=== PATIENT | male | born 1935 | race Caucasian/White ===

== ENCOUNTER 2017-01-31 06:26 | Outpatient (CLI) | payer MEDICARE, OTHER ==
[~2017-01-31 06:26] MED LIST: ACET1TAB12; ALPR0.5T72 PO; ASP325T PO; ATEN-156 PO; BRIM15DR2 OU; CALC-657; FENO145T2 PO; GLIP10TA13 PO; HYDR-3714 PO; INSU100V6 SQ; INSU300I SQ; LISI10TA2 PO; MECL-106 PO; MTF500T PO; MULT1TAB34; OMEP-10 PO; ONDA-42 SL; PROM12.565 RC; RAMI1.252; SCOP1PAT TD; SIMV40TA4 PO; SIMV5TAB6; TAMS0.4C9 PO; TRAM-42 PO; TRAM50TA2 PO
== END 2017-01-31 14:50 ==
DX: Z01.818 Encounter for other preprocedural examination (principal); K59.00 Constipation, unspecified; R13.10 Dysphagia, unspecified; K21.9 Gastro-esophageal reflux disease without esophagitis

== ENCOUNTER 2017-02-04 08:22 | Day surgery (SDC) | payer MEDICARE, OTHER ==
[~2017-02-04] VITALS: Ht 180.3 cm; Wt 69.4 kg
[2017-02-04] MEDS ORDERED: HURRICAINE EXT TUBE (BENZOCAINE) XX PRN (08:30)
[2017-02-04] MEDS ORDERED: NALOXONE 0.4 MG/ML 1 ML (NARCAN) VIAL IVP PRN (08:30)
[2017-02-04] MEDS ORDERED: NS IV 500 ML 500 ML IV PRN (08:30)
[2017-02-04] MEDS ORDERED: FLUMAZENIL (ROMAZICON) 0.1 MG/ML 5 ML VIAL INJ PRN (08:30)
[2017-02-04 08:56] VITALS: BP 146/62
[2017-02-04] MEDS ORDERED: MULT-10 PO (09:03)
[2017-02-04] MEDS ORDERED: NITR0.4T39 SL (09:03)
[2017-02-04] MEDS ORDERED: CA C1TAB79 PO (09:03)
[2017-02-04] MEDS ORDERED: FISH1CAP15 PO (09:03)
[2017-02-04] MEDS ORDERED: MIDAZOLAM 2 MG/2 ML (VERSED) VIAL ONE ×5 (09:51→09:52)
[2017-02-04] MEDS ORDERED: fentaNYL INJECTION 100 MCG/2 ML AMP ONE ×2 (09:51)
[2017-02-04] MEDS ORDERED: HURRICAINE EXT TUBE (BENZOCAINE) ONE (09:52)
[2017-02-04] MEDS: fentaNYL INJECTION 100 MCG/2 ML AMP IVP PRN ×2 (10:08→10:22)
[2017-02-04] MEDS: MIDAZOLAM 2 MG/2 ML (VERSED) VIAL IVP PRN ×2 (10:09→10:23)
--- NOTE | 2017-02-04 10:42 | Conscious Sedation/ASA ---
Conscious Sedation Pre-Proced Time Reviewed: 09:45 ASA Class: 2 Airway Mallampati Classification: (makah appropriate class) I. II. III, IV Lungs Heart ASA score ASA 1: a normal healthy patient ASA 2: a patient with a mild systemic disease (mid diabetes, controlled hypertension, obesity ASA 3: a patient with a severe systemic disease that limits activity (angina , COPD, prior Myocardial infarction) ASA 4: a patient with an incapacitating disease that is a constant threat to life (CHF, renal failure) ASA 5: a moribund patient not expected to survive 24 hrs. (ruptured aneurysm) ASA 6: a declared brain patient whose organs are being harvested. For emergent operations, add the letter E after the classification Grade 1 Sedation Plan: Discussed options with patient/fam Note The patient is an appropriate candidate to undergo the planned procedure, sedation, and anesthesia. The patient immediately re-assessed prior to indication. GIRISH DONOHUE MD Feb 04, 2017 10:42 am
--- NOTE | 2017-02-04 10:43 | Endoscopy Procedure Report ---
Endoscopy Report Date: Feb 04, 2017 Preoperative Diagnosis: GERD. Dysphagia Study Performed: Upper Endoscopy Procedure Instrument: Endoscope Endo Procedure/Findings Findings 1.: Stricture GIRISH DONOHUE MD Feb 04, 2017 10:43 am
--- NOTE | 2017-02-04 10:44 | Endoscopy Procedure Report ---
Endoscopy Report Date: Feb 04, 2017 Preoperative Diagnosis: constipation Study Performed: Colonoscopy Procedure Instrument: Colonoscope Endo Procedure/Findings Findings 1.: Diverticulosis, Stricture Copy Copies To 1: LAUREL SERRANO MD, XAVIER M MD Feb 04, 2017 10:43 am
--- NOTE | 2017-02-04 10:45 | Discharge Inst-Simple/Standard ---
Discharge Inst-Standard Discharge Medications New, Converted or Re-Newed RX: Other Patient Instructions/Follow Up Plan of Care/Instructions/FU: increase omeprazole to twice a day. Follow-up with Dr. Ash Activity as Tolerated: Yes Discharge Diet: No Restrictions GIRISH DONOHUE MD Feb 04, 2017 10:45 am
[2017-02-04 11:00] VITALS: BP 129/64
[2017-02-04 11:36] VITALS: BP 141/77
[2017-02-04 11:42] VITALS: BP 141/77
--- OUTSIDE RECORDS SUMMARY | 2017-02-04 22:52 | XMS REPORT | Continuity of Care Document ---
Author Author [facility] Organization [facility] Address Unknown Phone Unavailable Allergies Active Description Code Type Severity Reaction Onset Reported/Identified Relationship to Patient Clinical Status Yes cefuroxime [id number] Drug Allergy Unknown N/A 01/31/2017 Medications Problems Date Dx Coded Attending Type Code Diagnosis Diagnosed By 06/24/2014 BAIABBEY, ERWIN L CHILD SPECIALIST Ot 272.4 06/24/2014 BAIMA, ERWIN L CHILD SPECIALIST Ot 414.00 06/24/2014 BAIMA, ERWIN L CHILD SPECIALIST Ot 433.10 08/11/2014 BAIMA, ERWIN L CHILD SPECIALIST Ot 272.4 08/11/2014 BAIMA, ERWIN L CHILD SPECIALIST Ot 305.1 08/11/2014 BAIMA, ERWIN L CHILD SPECIALIST Ot 401.9 08/11/2014 BAIMA, ERWIN L CHILD SPECIALIST Ot 414.00 08/11/2014 BAIMA, ERWIN L CHILD SPECIALIST Ot 496 12/28/2014 KARLA SU CHILD SPECIALIST Ot 250.00 12/28/2014 KARLA SU CHILD SPECIALIST Ot 401.9 12/28/2014 KARLA SU CHILD SPECIALIST Ot 780.4 12/31/2014 BAIMA, ERWIN L CHILD SPECIALIST Ot 272.4 12/31/2014 BAIMA, ERWIN L CHILD SPECIALIST Ot 414.00 01/04/2015 BAIMA, ERWIN L CHILD SPECIALIST Ot 272.4 01/04/2015 BAIMA, ERWIN L CHILD SPECIALIST Ot 414.00 01/21/2015 KARLA SU CHILD SPECIALIST Ot 250.00 01/21/2015 KARLA SU CHILD SPECIALIST Ot 401.9 01/21/2015 KARLA SU CHILD SPECIALIST Ot 780.4 02/02/2015 BERNARDO ERWIN L CHILD SPECIALIST Ot 272.4 02/02/2015 BAIABBEY, ERWIN L CHILD SPECIALIST Ot 414.00 02/28/2015 KARMEN ADLER DO Ot 250.00 DIAB MEGGAN WO COMPL, TYPE II OR UNSPEC TY 02/28/2015 VITORKARMEN Adams DO Ot 272.0 PURE HYPERCHOLESTEROLEM 02/28/2015 KARMEN ADLER DO Ot 401.9 HYPERTENSION NOS 02/28/2015 KARMEN ADLER DO Ot 412 OLD MYOCARDIAL INFARCT 02/28/2015 KARMEN ADLER DO Ot 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 02/28/2015 KARMEN ADLER DO Ot 530.81 ESOPHAGEAL REFLUX 02/28/2015 KARMEN ADLER DO Ot 780.4 DIZZINESS AND GIDDINESS 02/28/2015 KARMEN ADLER DO Ot V45.82 PERCUTANEOUS TRANSLUM CORON ANGIOPLASTY 02/28/2015 KARMEN ADLER DO Ot V58.67 LONG-TERM (CURRENT) USE OF INSULIN 03/17/2015 JF CANCINO PICTURES EDITOR Ot 298.9 03/17/2015 JF CANCINO APRN Ot 780.4 03/17/2015 JF CANCINO PICTURES EDITOR Ot 780.79 03/17/2015 JF CANCINO PICTURES EDITOR Ot 781.2 03/23/2015 JAYDE LATHAM, GIRISH Boyer Ot 709.9 03/23/2015 JAYDE LATHAM, GIRISH Boyer Ot V72.84 03/23/2015 JAYDE LATHAM, GIRISH Boyer Ot 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 03/23/2015 JAYDE LATHAM, GIRISH Boyer Ot 250.00 DIAB MEGGAN WO COMPL, TYPE II OR UNSPEC TY 03/23/2015 JAYDE LATHAM, GIRISH Boyer Ot 709.9 SKIN DISORDER NOS 03/23/2015 JAYDE LATHAM, GIRISH Boyer Ot V74.8 SCREEN-BACTERIAL DIS NEC 05/30/2015 KARLA SU CHILD SPECIALIST Ot 786.2 06/16/2015 OSCAR LATHAM FACBasilio, MARLENY FACP CCDS Ot E78.4 06/16/2015 OSCAR LATHAM FACC, MARLENY FACP CCDS Ot I10 06/16/2015 OSCAR LATHAM FACC, ALI FACP CCDS Ot I25.10 06/16/2015 OSCAR LATHAM FACC, ALI FACP CCDS Ot J43.8 06/16/2015 OSCAR CONTRERASC, ALI FACP CCDS Ot Z72.0 06/30/2015 OSCAR LATHAM FACC, ALI FACP CCDS Ot E78.4 06/30/2015 OSCAR LATHAM [facility], MARLENY FACP CCDS Ot I10 06/30/2015 OSCAR LATHAM [facility], ALI FACP CCDS Ot I25.10 06/30/2015 OSCAR LATHAM [facility] CCD[facility] Ot J43.8 06/30/2015 OSCAR LATHAM [facility], [facility] Ot Z72.0 11/21/2015 GIRISH DONOHUE MD Ot L98.9 DISORDER OF THE SKIN AND SUBCUTANEOUS TI 11/21/2015 GIRISH DONOHUE MD Ot Z01.818 ENCOUNTER FOR OTHER PREPROCEDURAL EXAMIN 11/21/2015 GIRISH DONOHUE MD Ot Z11.2 ENCOUNTER FOR SCREENING FOR OTHER BACTER 12/08/2015 KARLA SU CHILD SPECIALIST Ot E11.65 TYPE 2 DIABETES MELLITUS WITH HYPERGLYCE 12/08/2015 KARLA SU CHILD SPECIALIST Ot E55.9 VITAMIN D DEFICIENCY, UNSPECIFIED 12/08/2015 KARLA SU CHILD SPECIALIST Ot E78.2 MIXED HYPERLIPIDEMIA 12/08/2015 KARLA SU CHILD SPECIALIST Ot I10 ESSENTIAL (PRIMARY) HYPERTENSION 12/08/2015 KARLA SU CHILD SPECIALIST Ot J44.9 CHRONIC OBSTRUCTIVE PULMONARY DISEASE , U 12/13/2015 KARLA SU CHILD SPECIALIST Ot E11.65 TYPE 2 DIABETES MELLITUS WITH HYPERGLYCE 12/13/2015 KARLA SU CHILD SPECIALIST Ot E55.9 VITAMIN D DEFICIENCY, UNSPECIFIED 12/13/2015 KARLA SU CHILD SPECIALIST Ot E78.2 MIXED HYPERLIPIDEMIA 12/13/2015 KARLA SU CHILD SPECIALIST Ot I10 ESSENTIAL (PRIMARY) HYPERTENSION 12/13/2015 KARLA SU CHILD SPECIALIST Ot J44.9 CHRONIC OBSTRUCTIVE PULMONARY DISEASE , U 12/15/2015 JAYDE LATHAM, GIRISH Boyer Ot 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 12/15/2015 GIRISH DONOHUE MD Ot I10 ESSENTIAL (PRIMARY) HYPERTENSION 12/15/2015 GIRISH DONOHUE MD Ot 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 12/15/2015 GIRISH DONOHUE MD Ot J44.9 CHRONIC OBSTRUCTIVE PULMONARY DISEASE, U 12/15/2015 GIRISH DONOHUE MD Ot 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 12/15/2015 TYREL DONOHUE MDVIER M Ot L82.1 OTHER SEBORRHEIC KERATOSIS 12/28/2015 KARLA SU CHILD SPECIALIST Ot E11.65 TYPE 2 DIABETES MELLITUS WITH HYPERGLYCE 12/28/2015 KARLA SU CHILD SPECIALIST Ot E55.9 VITAMIN D DEFICIENCY, UNSPECIFIED 12/28/2015 KARLA SU CHILD SPECIALIST Ot E78.2 MIXED HYPERLIPIDEMIA 12/28/2015 KARLA SU CHILD SPECIALIST Ot I10 ESSENTIAL (PRIMARY) HYPERTENSION 12/28/2015 KARLA SU CHILD SPECIALIST Ot J44.9 CHRONIC OBSTRUCTIVE PULMONARY DISEASE , U 01/02/2016 JAYDE LATHAM, GIRISH Boyer Ot 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 01/02/2016 JAYDE LATHAM, GIRISH Boyer Ot I10 ESSENTIAL (PRIMARY) HYPERTENSION 01/02/2016 JAYDE LATHAM, GIRISH Boyer Ot 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 01/02/2016 JAYDE LATHAM, GIRISH Boyer Ot J44.9 CHRONIC OBSTRUCTIVE PULMONARY DISEASE, U 01/02/2016 JAYDE LATHAM, GIRISH Boyer Ot 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69 OTH MED,LT,CURRENT USE 04/24/2016 Ot 272.4 HYPERLIPIDEMIA NEC/NOS 04/24/2016 Ot 401.9 HYPERTENSION NOS 04/24/2016 Ot 414.00 CORON ATHEROSCLER NOS TYPE VESSEL, NATIV 04/24/2016 Ot V58.69 OTH MED,LT,CURRENT USE 04/24/2016 Ot 414.00 CORON ATHEROSCLER NOS TYPE VESSEL, NATIV 04/24/2016 Ot 414.8 CHR ISCHEMIC HRT DIS NEC 04/24/2016 Ot 786.07 WHEEZING 04/24/2016 Ot 786.2 COUGH 04/24/2016 Ot 272.4 HYPERLIPIDEMIA NEC/NOS 04/24/2016 Ot 401.9 HYPERTENSION NOS 04/24/2016 Ot 414.00 CORON ATHEROSCLER NOS TYPE VESSEL, NATIV 04/24/2016 Ot V58.69 OTH MED,LT,CURRENT USE 04/24/2016 Ot 401.9 HYPERTENSION NOS 04/24/2016 Ot 414.00 CORON ATHEROSCLER NOS TYPE VESSEL, NATIV 04/24/2016 Ot V58.69 OTH MED,LT,CURRENT USE 04/24/2016 ALIA LATHAM, TORIE Boyer Ot 724.2 LUMBAGO 04/24/2016 BAIMA, ERWIN L CHILD SPECIALIST Ot 272.4 HYPERLIPIDEMIA NEC/NOS 04/24/2016 BAIMA, ERWIN L CHILD SPECIALIST Ot 401.9 HYPERTENSION NOS 04/24/2016 BAIMA, ERWIN L CHILD SPECIALIST Ot 414.00 CORON ATHEROSCLER NOS TYPE VESSEL, NATIV 04/24/2016 BAIMA, ERWIN L CHILD SPECIALIST Ot 272.4 HYPERLIPIDEMIA NEC/NOS 04/24/2016 BAIMA, ERWIN L CHILD SPECIALIST Ot 401.9 HYPERTENSION NOS 04/24/2016 BAIMA, ERWIN L CHILD SPECIALIST Ot 414.00 CORON ATHEROSCLER NOS TYPE VESSEL, NATIV 04/24/2016 BAIMA, ERWIN L CHILD SPECIALIST Ot 414.8 CHR ISCHEMIC HRT DIS NEC 04/24/2016 TORIE ROJO MD Ot 786.2 COUGH 04/24/2016 TORIE ROJO MD Ot 786.7 ABNORMAL CHEST SOUNDS 04/24/2016 BAIMA, ERWIN L CHILD SPECIALIST Ot 272.4 HYPERLIPIDEMIA NEC/NOS 04/24/2016 BAIMA, ERWIN L CHILD SPECIALIST Ot 414.00 CORON ATHEROSCLER NOS TYPE VESSEL, NATIV 04/24/2016 BAIMA, ERWIN L CHILD SPECIALIST Ot 433.10 CAROTID ARTERY OCCLUSION W O CEREBRAL IN 04/24/2016 BAIMA, ERWIN L CHILD SPECIALIST Ot 272.4 HYPERLIPIDEMIA NEC/NOS 04/24/2016 BAIMA, ERWIN L CHILD SPECIALIST Ot 305.1 TOBACCO USE DISORDER 04/24/2016 BAIMA, ERWIN L CHILD SPECIALIST Ot 401.9 HYPERTENSION NOS 04/24/2016 ERWIN CHANG CHILD SPECIALIST Ot 414.00 CORON ATHEROSCLER NOS TYPE VESSEL, NATIV 04/24/2016 OSKARERWIN POTTER Nas CHILD SPECIALIST Ot 496 CHR AIRWAY OBSTRUCT NEC 04/24/2016 KARLA SU CHILD SPECIALIST Ot 250.00 DIAB MEGGAN WO COMPL, TYPE II OR UNSPEC TY 04/24/2016 KARLA SU CHILD SPECIALIST Ot 401.9 HYPERTENSION NOS 04/24/2016 KARLA SU CHILD SPECIALIST Ot 780.4 DIZZINESS AND GIDDINESS 04/24/2016 BERNARDOERWIN Nas CHILD SPECIALIST Ot 272.4 HYPERLIPIDEMIA NEC/NOS 04/24/2016 OSKARERWIN POTTER CHILD SPECIALIST Ot 414.00 CORON ATHEROSCLER NOS TYPE VESSEL, NATIV 04/24/2016 JF CANCINO PICTURES EDITOR Ot 298.9 PSYCHOSIS NOS 04/24/2016 JF CANCINO PICTURES EDITOR Ot 780.4 DIZZINESS AND GIDDINESS 04/24/2016 JF CANCINO PICTURES EDITOR Ot 780.79 OTH MALAISE FATIGUE 04/24/2016 JF CANCINO PICTURES EDITOR Ot 781.2 ABNORMALITY OF GAIT 04/24/2016 GIRISH DONOHUE MD Ot 709.9 SKIN DISORDER NOS 04/24/2016 GIRISH DONOHUE MD Ot V72.84 EXAM PRE-OPERATIVE NOS 04/24/2016 KARLA SU CHILD SPECIALIST Ot 786.2 COUGH 04/24/2016 OSCAR LATHAM FACC, MARLENY CONTRERASP CCDS Ot E78.4 OTHER HYPERLIPIDEMIA 04/24/2016 OSCAR LATHAM FACC, MARLENY CONTRERASP CCDS Ot I10 ESSENTIAL (PRIMARY) HYPERTENSION 04/24/2016 OSCAR LATHAM FACC, MARLENY CONTRERASP CCDS Ot 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 04/24/2016 OSCAR LATHAM FACC, ALI FACP CCDS Ot J43.8 OTHER EMPHYSEMA 04/24/2016 OSCAR LATHAM FACC, ALI FACP CCDS Ot Z72.0 TOBACCO USE 04/24/2016 GIRISH DONOHUE MD Ot 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 04/24/2016 GIRISH DONOHUE MD Ot I10 ESSENTIAL (PRIMARY) HYPERTENSION 04/24/2016 GIRISH DONOHUE MD Ot 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 04/24/2016 JAYDE LATHAM, GIRISH Boyer Ot J44.9 CHRONIC OBSTRUCTIVE PULMONARY DISEASE, U 04/24/2016 JAYDE LATHAM, GIRISH Boyer Ot 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 04/24/2016 JAYDE LATHAM, GIRISH Boyer Ot L82.1 OTHER SEBORRHEIC KERATOSIS 04/24/2016 SHARLENE KARLA M CHILD SPECIALIST Ot E11.65 TYPE 2 DIABETES MELLITUS WITH HYPERGLYCE 04/24/2016 KARLA SU CHILD SPECIALIST Ot E55.9 VITAMIN D DEFICIENCY, UNSPECIFIED 04/24/2016 KARLA SU CHILD SPECIALIST Ot E78.2 MIXED HYPERLIPIDEMIA 04/24/2016 KARLA SU CHILD SPECIALIST Ot I10 ESSENTIAL (PRIMARY) HYPERTENSION 04/24/2016 KARLA SU CHILD SPECIALIST Ot J44.9 CHRONIC OBSTRUCTIVE PULMONARY DISEASE , U 04/24/2016 BAIMA, ERWIN L CHILD SPECIALIST Ot E78.4 OTHER HYPERLIPIDEMIA 04/24/2016 BAIMA, ERWIN L CHILD SPECIALIST Ot I10 ESSENTIAL (PRIMARY) HYPERTENSION 04/24/2016 BAIMA, ERWIN L CHILD SPECIALIST Ot 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 04/24/2016 BAIMA, ERWIN L CHILD SPECIALIST Ot 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 04/25/2016 BAIMA, ERWIN L CHILD SPECIALIST Ot E78.4 OTHER HYPERLIPIDEMIA 04/25/2016 BAIMA, ERWIN L CHILD SPECIALIST Ot I10 ESSENTIAL (PRIMARY) HYPERTENSION 04/25/2016 BAIMA, ERWIN L CHILD SPECIALIST Ot 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 04/25/2016 BAIMA, ERWIN L CHILD SPECIALIST Ot 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 05/14/2016 BAIMA, ERWIN L CHILD SPECIALIST Ot E78.4 OTHER HYPERLIPIDEMIA 05/14/2016 BAIMA, ERWIN L CHILD SPECIALIST Ot I10 ESSENTIAL (PRIMARY) HYPERTENSION 05/14/2016 BAIMA, ERWIN L CHILD SPECIALIST Ot 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 Visit Date/Time Discharge Status Pt. Type Provider Facility Loc./Unit Complaint [id number] 01/31/2017 06:26:00 2016 14:50:00 DIS Outpatient GIRISH ODNOHUE MD [facility] PREOP COLO/EGD [id number] 11/21/2015 13:17:00 2015 14:09:00 DIS Outpatient GIRISH DONOHUE MD [facility] PREOP LESIONS [id number] 06/10/2015 10:22:00 2014 23:59:59 CLS Outpatient OSCAR LATHAM FACCMARLENY FACP CCDS [facility] CARD COPD,CAD [id number] 05/06/2015 14:12:00 2014 23:59:59 CLS Outpatient KARLA SU [facility] RAD COUGH [id number] 03/23/2015 07:31:00 2014 12:15:00 DIS Outpatient GIRISH DONOHUE MD [facility] SDC LESION [id number] 03/16/2015 11:34:00 2014 23:59:59 CLS Outpatient GIRISH DONOHUE MD [facility] PREOP LESION [id number] 02/28/2015 18:55:00 2014 21:13:00 DIS Emergency VITOR DOKARMEN K [facility] ER DIZZINESS,VOMITING [id number] 02/23/2015 13:01:00 2014 23:59:59 CLS Outpatient JF CANCINO APRN [facility] RAD UNSTEADY GAIT,DIZZINESS, INTERMEDIATE CONFUSION, [id number] 12/30/2014 09:50:00 2014 23:59:59 CLS Outpatient ERWIN CHANG [facility] LAB CAD, HYPERLIPIDEMIA [id number] 12/23/2014 16:09:00 2014 23:59:59 CLS Outpatient KARLA SU CHILD SPECIALIST [facility] RT DIZZINESS,DM,HTN [id number] 07/19/2014 14:32:00 2013 23:59:59 CLS Outpatient BAIMA, ERWIN L CHILD SPECIALIST [facility] RAD CAD,COPD,HTN,HYPERLIPADEMIA [id number] 06/01/2014 10:19:00 2013 23:59:59 CLS Outpatient BAIMA, ERWIN L CHILD SPECIALIST [facility] LAB CAD, HYPERLIPADEMIA [id number] 04/21/2014 15:28:00 2013 23:59:59 CLS Outpatient TORIE ROJO MD [facility] RAD COUGH,BI CRACKLES [id number] 01/28/2014 07:53:00 2013 23:59:59 CLS Outpatient BAIMA, ERWIN L CHILD SPECIALIST [facility] CARD HTN,CARDIOMYOPATHY,HLP [id number] 11/23/2013 08:58:00 2013 23:59:59 CLS Outpatient BAIMA, ERWIN L CHILD SPECIALIST [facility] LAB STATIN TC,HTN,HYPLIPADEMIA [id number] 05/11/2013 16:12:00 2012 23:59:59 CLS Outpatient TORIE ROJO MD [facility] RAD LOW BACK PAIN [id number] 02/04/2017 09:30:00 GIRISH Gould MD [facility] ENDO CONSTIPATION, DYSPHAGIA, REFLUX [id number] 04/24/2016 11:08:00 ACT Outpatient BAIMA, ERWIN L CHILD SPECIALIST [facility] CARD CAD,CAROITD ARTERIAL DISEASE,HTN,HLP [id number] 04/24/2016 11:07:00 Document Registration [id number] 04/24/2016 11:06:00 Document Registration [id number] 04/24/2016 11:06:00 Document Registration [id number] 04/20/2016 11:43:00 ACT Outpatient ERWIN CHANG [facility] CARD CAD,CAROTID ARTERIAL DISEASE,HTN,HLP [id number] 12/07/2015 12:29:00 ACT Outpatient JAYDE LATHAM, GIRISH Boyer [facility] SDC LESIONS [id number] 12/07/2015 12:01:00 ACT Outpatient KARLA SU [facility] LAB HTN,TYPE 2 DIABETES,VIT D DEF,CHRONIC OBSTRUCTIVE [id number] 06/23/2012 13:16:00 Document Registration [id number] 05/26/2012 09:47:00 Document Registration [id number] 04/01/2012 16:36:00 Document Registration [id number] 12/24/2011 14:06:00 Document Registration [id number] 11/19/2011 09:23:00 Document Registration [id number] 05/31/2011 07:52:00 Document Registration [id number] 05/18/2011 09:02:00 Document Registration [id number] 11/10/2010 09:23:00 Document Registration [id number] 06/27/2007 00:00:00 Document Registration
--- NOTE | 2017-02-04 23:47 | OPERATIVE REPORT ---
DATE OF SERVICE: 02/04/2017 PROCEDURE: 1. Upper GI endoscopy/antral biopsy. 2. Balloon dilatation. 3. Colonoscopy. SURGEON: Girish Donohue MD INDICATION FOR PROCEDURE: This gentleman came in for an upper endoscopy to evaluate dysphagia along with symptoms of reflux and concomitant colonoscopy to investigate new onset of constipation. Informed consent was obtained after reviewing the procedures in detail. DESCRIPTION OF PROCEDURE: 1. Upper GI endoscopy/antral biopsy/balloon dilatation. He was placed in left lateral decubitus position and his vital signs were monitored. Conscious sedation was achieved using Versed and fentanyl. The flexible gastroscope was introduced down the esophagus, past the stomach, into the proximal duodenum. FINDINGS: ESOPHAGUS: Quite tortuous with a smooth, concentric, peptic stricture at the distal end. It was dilated to 18 mm with the balloon. STOMACH: An incidental 1 mm erosion was found at the antral. Biopsy for H. pylori was obtained. Duodenum normal. He tolerated the procedure well and was turned around in preparation for colonoscopy. IMPRESSION: Dysphagia due to peptic esophageal stricture. Balloon dilatation completed. COLONOSCOPY: Digital rectal examination was unremarkable. The colonoscope was then introduced into the rectum and advanced to the cecum. The scope was then withdrawn slowly and the mucosa examined in a systematic fashion. FINDINGS: Sigmoid diverticulosis without any stricture. No polyps were found. He tolerated the procedures well and was taken back to the nursing area in a stable condition. IMPRESSION: Constipation. No obstructing lesions. Incidental diverticulosis. Job ID: [id number] DocumentID: [id number] Dictated Date: 02/04/2017 10:41:51 Sports Recruiter Date: 02/04/2017 15:55:59 Dictated By: GIRISH DONOHUE MD MTDD
== END 2017-02-04 12:10 | disposition home or self-care (01) ==
LOC: ENDO 08:22
PROVIDERS: ATTEND Surgery
DX: K22.2 Esophageal obstruction (principal); K57.30 Diverticulosis of large intestine without perforation or abscess without bleeding; K25.9 Gastric ulcer, unspecified as acute or chronic, without hemorrhage or perforation; I25.10 Atherosclerotic heart disease of native coronary artery without angina pectoris; J44.9 Chronic obstructive pulmonary disease, unspecified; E11.9 Type 2 diabetes mellitus without complications; M19.90 Unspecified osteoarthritis, unspecified site; H40.9 Unspecified glaucoma; F17.210 Nicotine dependence, cigarettes, uncomplicated

== ENCOUNTER → 2017-05-10 | Outpatient (CLI) | payer MEDICARE, OTHER ==
[~2017-05-10] MED LIST changes: +CA C1TAB79 PO; +FISH1CAP15 PO; +MULT-10 PO; +NITR0.4T39 SL
--- NOTE | 2017-05-10 13:49 | Diagnostic Imaging Report ---
PROCEDURE: CT chest without contrast. TECHNIQUE: Multiple contiguous axial images were obtained through the chest without the use of intravenous contrast. INDICATION: Weight loss. Tobacco use. Shortness of breath. FINDINGS: There is obstructive interstitial lung disease noted throughout. There is alveolar infiltrate in the left lung base. No bronchiectasis is demonstrated. No bullous emphysematous changes. There is some scattered subpleural honeycombing noted most prominently in the upper lobes bilaterally. The aorta is atherosclerotic. The aortic root measures approximately 3.6 cm. Coronary arteries are densely calcified. There is no mediastinal or hilar adenopathy of pathologic size. No destructive bony lesions are demonstrated. Diffuse degenerative changes noted throughout the thoracic spine. No pleural effusions or pericardial effusion. IMPRESSION: 1. Obstructive interstitial lung disease. There is subpleural honeycombing in the upper lobes. 2. There does appear to be superimposed pneumonia in the left lower lobe. No findings are seen to indicate malignancy at this time. 3. Atherosclerotic changes with dense coronary artery calcification. Dictated by: Dictated on workstation # [id number]
== END ==
LOC: RAD 12:49
PROVIDERS: ATTEND Nurse Practitioner Family
DX: J44.9 Chronic obstructive pulmonary disease, unspecified (principal); I25.10 Atherosclerotic heart disease of native coronary artery without angina pectoris; R91.8 Other nonspecific abnormal finding of lung field; R63.4 Abnormal weight loss; Z72.0 Tobacco use
CPT/HCPCS: 71250

== ENCOUNTER 2017-12-05 06:07 | Outpatient (CLI) | payer MEDICARE, OTHER ==
[~2017-12-05] VITALS: Ht 180.3 cm; Wt 69.4 kg
[2017-12-05] MEDS ORDERED: ASPI-808 PO (12:45)
[2017-12-05] MEDS ORDERED: ALPR0.5T7 PO (12:45)
[2017-12-05] MEDS ORDERED: ATEN25TA PO (12:45)
[2017-12-05] MEDS ORDERED: ACHD5005 PO (12:45)
[2017-12-05] MEDS ORDERED: METF500T5 PO (12:45)
[2017-12-05] MEDS ORDERED: LISI10TA2 PO (12:45)
[2017-12-05] MEDS ORDERED: SIMV40TA4 PO (12:46)
[2017-12-05] MEDS ORDERED: BRIM5DRO2 OU (12:46)
[2017-12-05] MEDS ORDERED: PANT40TA3 PO (12:46)
[2017-12-10] MEDS ORDERED: SUCR1TAB36 PO (11:53)
== END 2017-12-05 12:47 ==
LOC: PREOP 06:07
PROVIDERS: ATTEND Surgery
DX: Z01.818 Encounter for other preprocedural examination (principal); R06.6 Hiccough; R14.2 Eructation

== ENCOUNTER → 2018-01-05 | Outpatient (CLI) | payer MEDICARE, OTHER ==
[~2018-01-05] MED LIST changes: +ACHD5005 PO; +ALPR0.5T7 PO; +ASPI-808 PO; +ATEN25TA PO; +BRIM5DRO2 OU; +METF500T5 PO; +PANT40TA3 PO; +SUCR1TAB36 PO
--- NOTE | 2018-01-05 17:10 | Diagnostic Imaging Report ---
INDICATION: Acute bronchitis. EXAMINATION: PA and lateral views of the chest. FINDINGS: The heart size and vascularity are normal. Lungs are clear. There is no effusion. There is no acute bony abnormality. IMPRESSION: No acute abnormality is seen. There is no change from 05/06/2015. Dictated by: Dictated on workstation # [id number]
== END ==
LOC: RAD 16:32
PROVIDERS: ATTEND Family Medicine
DX: J20.8 Acute bronchitis due to other specified organisms (principal)
CPT/HCPCS: 71046

== ENCOUNTER 2018-03-19 14:07 | Outpatient (CLI) | payer MEDICARE, OTHER ==
[~2018-03-19] VITALS: Ht 180.3 cm; Wt 66.7 kg
[2018-03-19 14:27] VITALS: BP 132/58
[2018-03-19 15:18] LABS: BASOPHILS % (AUTO) 0 % (0-10); EOSINOPHILS # (AUTO) 0.1 10^3/uL (0.0-0.3); EOSINOPHILS % (AUTO) 2 % (0-10); HEMATOCRIT 36 % (40-54); HEMOGLOBIN 12.5 G/DL (13.3-17.7); LYMPHOCYTES # (AUTO) 1.7 X 10^3 (1.0-4.0); LYMPHOCYTES % (AUTO) 20 % (12-44); MEAN CORPUSCULAR HEMOGLOBIN 35 PG (25-34); MEAN CORPUSCULAR HGB CONC 35 G/DL (32-36); MEAN CORPUSCULAR VOLUME 103 FL (80-99); MEAN PLATELET VOLUME 9.9 FL (7.4-10.4); MONOCYTES # (AUTO) 0.6 X 10^3 (0.0-1.0); MONOCYTES % (AUTO) 7 % (0-12); NEUTROPHILS # (AUTO) 6.4 X 10^3 (1.8-7.8); NEUTROPHILS % (AUTO) 72 % (42-75); PLATELET COUNT 194 10^3/uL (130-400); RED BLOOD COUNT 3.53 10^6/uL (4.35-5.85); RED CELL DISTRIBUTION WIDTH 14.2 % (10.0-14.5); WHITE BLOOD COUNT 8.9 10^3/uL (4.3-11.0)
[2018-03-19 15:45] LABS: BUN/CREATININE RATIO 18; CALCIUM 9.5 MG/DL (8.5-10.1); CARBON DIOXIDE 26 MMOL/L (21-32); CHLORIDE 105 MMOL/L (98-107); CREATININE SERUM 0.92 MG/DL (0.60-1.30); GFR ESTIMATED > 60; GLUCOSE 214 MG/DL (70-105); POTASSIUM 4.2 MMOL/L (3.6-5.0); SODIUM 139 MMOL/L (135-145)
== END 2018-03-19 15:00 | disposition home or self-care (01) ==
LOC: PREOP 14:07
PROVIDERS: ATTEND Otolaryngology Otolaryngology/Facial Plastic Surgery
DX: Z01.810 Encounter for preprocedural cardiovascular examination (principal); Z01.812 Encounter for preprocedural laboratory examination; Z11.2 Encounter for screening for other bacterial diseases; C44.321 Squamous cell carcinoma of skin of nose
CPT/HCPCS: 36415; 80048; 85025; 87081; 93005

== ENCOUNTER 2018-03-21 06:41 | Day surgery (SDC) | payer MEDICARE, OTHER ==
[~2018-03-21] VITALS: Ht 180.3 cm; Wt 66.7 kg
[2018-03-21 06:50] VITALS: BP 164/78
--- OUTSIDE RECORDS SUMMARY | 2018-03-21 07:04 | XMS REPORT | Continuity of Care Document ---
Author Author [facility] Organization [facility] Address Unknown Phone Unavailable Allergies Active Description Code Type Severity Reaction Onset Reported/Identified Relationship to Patient Clinical Status Yes cefuroxime [id number] Drug Allergy Unknown N/A 01/31/2017 Medications There is no data. Problems Date Dx Coded Attending Type Code Diagnosis Diagnosed By 06/24/2014 ERWIN CHANG MONUMENTAL STONEMASON Ot 272.4 06/24/2014 BAIMA, ERWIN L MONUMENTAL STONEMASON Ot 414.00 06/24/2014 BAIMA, ERWIN L MONUMENTAL STONEMASON Ot 433.10 08/11/2014 BAIMA, ERWIN L MONUMENTAL STONEMASON Ot 272.4 08/11/2014 BAIMA, ERWIN L MONUMENTAL STONEMASON Ot 305.1 08/11/2014 BAIMA, ERWIN L MONUMENTAL STONEMASON Ot 401.9 08/11/2014 BAIMA, ERWIN L MONUMENTAL STONEMASON Ot 414.00 08/11/2014 BAIABBEY, ERWIN L MONUMENTAL STONEMASON Ot 496 12/28/2014 KARLA SU MONUMENTAL STONEMASON Ot 250.00 12/28/2014 KARLA SU MONUMENTAL STONEMASON Ot 401.9 12/28/2014 KARLA SU MONUMENTAL STONEMASON Ot 780.4 12/31/2014 BAIABBEY ERWIN L MONUMENTAL STONEMASON Ot 272.4 12/31/2014 BAIMA, ERWIN L MONUMENTAL STONEMASON Ot 414.00 01/04/2015 BAIMA, ERWIN L MONUMENTAL STONEMASON Ot 272.4 01/04/2015 BAIMA, ERWIN L MONUMENTAL STONEMASON Ot 414.00 01/21/2015 KARLA SU MONUMENTAL STONEMASON Ot 250.00 01/21/2015 KARLA SU MONUMENTAL STONEMASON Ot 401.9 01/21/2015 KARLA SU MONUMENTAL STONEMASON Ot 780.4 02/02/2015 BAIABBEY, ERWIN L MONUMENTAL STONEMASON Ot 272.4 02/02/2015 BAIABBEY ERWIN L MONUMENTAL STONEMASON Ot 414.00 02/28/2015 VITOR DO, KARMEN K Ot 250.00 DIAB MEGGAN WO COMPL, TYPE II OR UNSPEC TY 02/28/2015 KARMEN ADLER DO Ot 272.0 PURE HYPERCHOLESTEROLEM 02/28/2015 KARMEN ADLER DO Ot 401.9 HYPERTENSION NOS 02/28/2015 KARMEN ADLER DO Ot 412 OLD MYOCARDIAL INFARCT 02/28/2015 KARMEN ADLER DO Ot 414.01 CORONARY ATHEROSCLEROSIS OF [place] CORON 02/28/2015 KARMEN ADLER DO Ot 530.81 ESOPHAGEAL REFLUX 02/28/2015 KARMEN ADLER DO Ot 780.4 DIZZINESS AND GIDDINESS 02/28/2015 KARMEN ADLER DO Ot V45.82 PERCUTANEOUS TRANSLUM CORON ANGIOPLASTY 02/28/2015 KARMEN ADLER DO Ot V58.67 LONG-TERM (CURRENT) USE OF INSULIN 03/17/2015 JF CANCINO PRACTICE CLINICIAN Ot 298.9 03/17/2015 JF CANCINO PRACTICE CLINICIAN Ot 780.4 03/17/2015 JF CANCINO PRACTICE CLINICIAN Ot 780.79 03/17/2015 JF CANCINO PRACTICE CLINICIAN Ot 781.2 03/23/2015 JAYDE LATHAM, GIRISH Boyer [...] V74.8 SCREEN-BACTERIAL DIS NEC 05/30/2015 KARLA SU MONUMENTAL STONEMASON Ot 786.2 06/16/2015 OSCAR LATHAM FACBasilio, MARLENY FACP CCDS Ot E78.4 06/16/2015 OSCAR LATHAM FACC, MARLENY FACP CCDS Ot I10 06/16/2015 OSCAR LATHAM FACC, ALI FACP CCDS Ot I25.10 06/16/2015 OSCAR LATHAM FACC, ALI FACP CCDS Ot J43.8 06/16/2015 OSCAR LATHAM FACC, ALI FACP CCDS Ot Z72.0 06/30/2015 OSCAR LATHAM FACC, ALI FACP CCDS Ot E78.4 06/30/2015 OSCAR LATHAM [facility], ALI FACP CCDS Ot I10 06/30/2015 OSCAR LATHAM [facility], [facility] FACP CCDS Ot I25.10 06/30/2015 OSCAR LATHAM [facility] CCD[facility] Ot J43.8 06/30/2015 OSCAR LATHAM [facility] CCD[facility] Ot Z72.0 11/21/2015 GIRISH DONOHUE MD Ot L98.9 DISORDER OF THE SKIN AND SUBCUTANEOUS TI 11/21/2015 GIRISH DONOHUE MD Ot Z01.818 ENCOUNTER FOR OTHER PREPROCEDURAL EXAMIN 11/21/2015 GIRISH DONOHUE MD Ot Z11.2 ENCOUNTER FOR SCREENING FOR OTHER BACTER 12/08/2015 KARLA SU MONUMENTAL STONEMASON Ot E11.65 TYPE 2 DIABETES MELLITUS WITH HYPERGLYCE 12/08/2015 KARLA SU MONUMENTAL STONEMASON Ot E55.9 VITAMIN D DEFICIENCY, UNSPECIFIED 12/08/2015 KARLA SU MONUMENTAL STONEMASON Ot E78.2 MIXED HYPERLIPIDEMIA 12/08/2015 KARLA SU MONUMENTAL STONEMASON Ot I10 ESSENTIAL (PRIMARY) HYPERTENSION 12/08/2015 KARLA SU MONUMENTAL STONEMASON Ot J44.9 CHRONIC OBSTRUCTIVE PULMONARY DISEASE, U 12/13/2015 KARLA SU MONUMENTAL STONEMASON Ot E11.65 TYPE 2 DIABETES MELLITUS WITH HYPERGLYCE 12/13/2015 KARLA SU MONUMENTAL STONEMASON Ot E55.9 VITAMIN D DEFICIENCY, UNSPECIFIED 12/13/2015 KARLA SU MONUMENTAL STONEMASON Ot E78.2 MIXED HYPERLIPIDEMIA 12/13/2015 KARLA SU MONUMENTAL STONEMASON Ot I10 ESSENTIAL (PRIMARY) HYPERTENSION 12/13/2015 KARLA SU MONUMENTAL STONEMASON Ot J44.9 CHRONIC OBSTRUCTIVE PULMONARY DISEASE, U 12/15/2015 GIRISH DONOHUE MD Ot 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 12/15/2015 GIRISH DONOHUE MD Ot I10 ESSENTIAL (PRIMARY) HYPERTENSION 12/15/2015 GIRISH DONOHUE MD Ot I25.10 ATHSCL HEART DISEASE OF [place] CORONARY 12/15/2015 GIRISH DONOHUE MD Ot J44.9 CHRONIC OBSTRUCTIVE PULMONARY DISEASE, U 12/15/2015 GIRISH DONOHUE MD Ot 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 12/15/2015 JAYDE LATHAM, GIRISH Boyer Ot L82.1 OTHER SEBORRHEIC KERATOSIS 12/28/2015 KARLA SU MONUMENTAL STONEMASON Ot E11.65 TYPE 2 DIABETES MELLITUS WITH HYPERGLYCE 12/28/2015 KARLA SU MONUMENTAL STONEMASON Ot E55.9 VITAMIN D DEFICIENCY, UNSPECIFIED 12/28/2015 KARLA SU MONUMENTAL STONEMASON Ot E78.2 MIXED HYPERLIPIDEMIA 12/28/2015 KARLA SU MONUMENTAL STONEMASON Ot I10 ESSENTIAL (PRIMARY) HYPERTENSION 12/28/2015 KARLA SU MONUMENTAL STONEMASON Ot J44.9 CHRONIC OBSTRUCTIVE PULMONARY DISEASE, U 01/02/2016 JAYDE LATHAM, GIRISH Boyer Ot 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 01/02/2016 JAYDE LATHAM, GIRISH Boyer Ot I10 ESSENTIAL (PRIMARY) HYPERTENSION 01/02/2016 JAYDE LATHAM, GIRISH Boyer Ot I25.10 ATHSCL HEART DISEASE OF [place] CORONARY 01/02/2016 JAYDE LATHAM, GIRISH Boyer Ot J44.9 CHRONIC OBSTRUCTIVE PULMONARY DISEASE, U 01/02/2016 JAYDE LATHAM, GIRISH Boyer Ot 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 01/02/2016 JAYDE LATHAM, GIRISH Boyer Ot L82.1 OTHER SEBORRHEIC KERATOSIS 04/24/2016 Ot 414.01 04/24/2016 Ot V58.61 04/24/2016 Ot 272.4 HYPERLIPIDEMIA NEC/NOS 04/24/2016 Ot 401.9 HYPERTENSION NOS 04/24/2016 Ot 414.01 CORONARY ATHEROSCLEROSIS OF [place] CORON 04/24/2016 Ot V58.69 OTH MED,LT, CURRENT USE 04/24/2016 Ot 272.4 HYPERLIPIDEMIA NEC/NOS 04/24/2016 Ot 414.00 CORON ATHEROSCLER NOS TYPE VESSEL, NATIV 04/24/2016 Ot V58.69 OTH MED,LT, CURRENT USE 04/24/2016 Ot 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,OTH ANTER WALL,SUBSEQ 04/24/2016 Ot 414.01 CORONARY ATHEROSCLEROSIS OF [place] CORON 04/24/2016 Ot V58.69 OTH MED,LT, CURRENT USE 04/24/2016 Ot 272.4 HYPERLIPIDEMIA NEC/NOS 04/24/2016 Ot 401.9 HYPERTENSION NOS 04/24/2016 Ot 414.00 CORON ATHEROSCLER NOS TYPE VESSEL, NATIV 04/24/2016 Ot V58.69 OTH MED,LT, CURRENT USE 04/24/2016 Ot 414.00 CORON ATHEROSCLER NOS TYPE VESSEL, NATIV 04/24/2016 Ot 414.8 CHR ISCHEMIC HRT DIS NEC 04/24/2016 Ot 786.07 WHEEZING 04/24/2016 Ot 786.2 COUGH 04/24/2016 Ot 272.4 HYPERLIPIDEMIA NEC/NOS 04/24/2016 Ot 401.9 HYPERTENSION NOS 04/24/2016 Ot 414.00 CORON ATHEROSCLER NOS TYPE VESSEL, NATIV 04/24/2016 Ot V58.69 OTH MED,LT, CURRENT USE 04/24/2016 Ot 401.9 HYPERTENSION NOS 04/24/2016 Ot 414.00 CORON ATHEROSCLER NOS TYPE VESSEL, NATIV 04/24/2016 Ot V58.69 OTH MED,LT, CURRENT USE 04/24/2016 ALIA LATHAM, TORIE Boyer Ot 724.2 LUMBAGO 04/24/2016 BAIMA, ERWIN L MONUMENTAL STONEMASON Ot 272.4 HYPERLIPIDEMIA NEC/NOS 04/24/2016 BAIMA, ERWIN L MONUMENTAL STONEMASON Ot 401.9 HYPERTENSION NOS 04/24/2016 BAIMA, ERWIN L MONUMENTAL STONEMASON Ot 414.00 CORON ATHEROSCLER NOS TYPE VESSEL, NATIV 04/24/2016 BAIMA, ERWIN L MONUMENTAL STONEMASON Ot 272.4 HYPERLIPIDEMIA NEC/NOS 04/24/2016 BAIMA, ERWIN L MONUMENTAL STONEMASON Ot 401.9 HYPERTENSION NOS 04/24/2016 BAIMA, ERWIN L MONUMENTAL STONEMASON Ot 414.00 CORON ATHEROSCLER NOS TYPE VESSEL, NATIV 04/24/2016 BAIMA, ERWIN L MONUMENTAL STONEMASON Ot 414.8 CHR ISCHEMIC HRT DIS NEC 04/24/2016 TORIE ROJO MD Ot 786.2 COUGH 04/24/2016 TORIE ROJO MD Ot 786.7 ABNORMAL CHEST SOUNDS 04/24/2016 BAIMA, ERWIN L MONUMENTAL STONEMASON Ot 272.4 HYPERLIPIDEMIA NEC/NOS 04/24/2016 BAIMA, ERWIN L MONUMENTAL STONEMASON Ot 414.00 CORON ATHEROSCLER NOS TYPE VESSEL, NATIV 04/24/2016 BAIMA, ERWIN L MONUMENTAL STONEMASON Ot 433.10 CAROTID ARTERY OCCLUSION W O CEREBRAL IN 04/24/2016 BAIMA, ERWIN L MONUMENTAL STONEMASON Ot 272.4 HYPERLIPIDEMIA NEC/NOS 04/24/2016 BAIMA, ERWIN L MONUMENTAL STONEMASON Ot 305.1 TOBACCO USE DISORDER 04/24/2016 BAIMA, ERWIN L MONUMENTAL STONEMASON Ot 401.9 HYPERTENSION NOS 04/24/2016 ERWIN CHANG MONUMENTAL STONEMASON Ot 414.00 CORON ATHEROSCLER NOS TYPE VESSEL, NATIV 04/24/2016 ERWIN CHANG MONUMENTAL STONEMASON Ot 496 CHR AIRWAY OBSTRUCT NEC 04/24/2016 SUKARLA MONUMENTAL STONEMASON Ot 250.00 DIAB MEGGAN WO COMPL, TYPE II OR UNSPEC TY 04/24/2016 SHARLENE KARLA M MONUMENTAL STONEMASON Ot 401.9 HYPERTENSION NOS 04/24/2016 SHARLENE KARLA M MONUMENTAL STONEMASON Ot 780.4 DIZZINESS AND GIDDINESS 04/24/2016 ERWIN CHANG MONUMENTAL STONEMASON Ot 272.4 HYPERLIPIDEMIA NEC/NOS 04/24/2016 ERWIN CHANG MONUMENTAL STONEMASON Ot 414.00 CORON ATHEROSCLER NOS TYPE VESSEL, NATIV 04/24/2016 JF CANCINO PRACTICE CLINICIAN Ot 298.9 PSYCHOSIS NOS 04/24/2016 JF CANCINO PRACTICE CLINICIAN Ot 780.4 DIZZINESS AND GIDDINESS 04/24/2016 JF CNACINO PRACTICE CLINICIAN Ot 780.79 OTH MALAISE FATIGUE 04/24/2016 JF CANCINO PRACTICE CLINICIAN Ot 781.2 ABNORMALITY OF GAIT 04/24/2016 JAYDE LATHAM, GIRISH Boyer Ot 709.9 SKIN DISORDER NOS 04/24/2016 GIRISH DONOHUE MD Ot V72.84 EXAM PRE-OPERATIVE NOS 04/24/2016 SHARLENE KARLA M MONUMENTAL STONEMASON Ot 786.2 COUGH 04/24/2016 OSCAR LATHAM FACC, MARLENY CONTRERASP CCDS Ot E78.4 OTHER HYPERLIPIDEMIA 04/24/2016 OSCAR LATHAM FACC, MARLENY FACP CCDS Ot I10 ESSENTIAL (PRIMARY) HYPERTENSION 04/24/2016 OSCAR LATHAM FACC, MARLENY FACP CCDS Ot I25.10 ATHSCL HEART DISEASE OF [place] CORONARY 04/24/2016 OSCAR LATHAM FACC, MARLENY FACP CCDS Ot J43.8 OTHER EMPHYSEMA 04/24/2016 OSCAR LATHAM FACC, ALI FACP CCDS Ot Z72.0 TOBACCO USE 04/24/2016 GIRISH DONOHUE MD Ot 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 04/24/2016 GIRISH DONOHUE MD Ot I10 ESSENTIAL (PRIMARY) HYPERTENSION 04/24/2016 GIRISH DONOHUE MD Ot I25.10 ATHSCL HEART DISEASE OF [place] CORONARY 04/24/2016 JAYDE LATHAM, GIRISH Boyer Ot J44.9 CHRONIC OBSTRUCTIVE PULMONARY DISEASE, U 04/24/2016 JAYDE LATHAM, GIRISH Boyer Ot 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 04/24/2016 JAYDE LATHAM, GIRISH Boyer Ot L82.1 OTHER SEBORRHEIC KERATOSIS 04/24/2016 KARLA SU MONUMENTAL STONEMASON Ot E11.65 TYPE 2 DIABETES MELLITUS WITH HYPERGLYCE 04/24/2016 KARLA SU MONUMENTAL STONEMASON Ot E55.9 VITAMIN D DEFICIENCY, UNSPECIFIED 04/24/2016 KARLA SU MONUMENTAL STONEMASON Ot E78.2 MIXED HYPERLIPIDEMIA 04/24/2016 KARLA SU MONUMENTAL STONEMASON Ot I10 ESSENTIAL (PRIMARY) HYPERTENSION 04/24/2016 KARLA SU MONUMENTAL STONEMASON Ot J44.9 CHRONIC OBSTRUCTIVE PULMONARY DISEASE, U 04/24/2016 BAIMA, ERWIN L MONUMENTAL STONEMASON Ot E78.4 OTHER HYPERLIPIDEMIA 04/24/2016 BAIMA, ERWIN L MONUMENTAL STONEMASON Ot I10 ESSENTIAL (PRIMARY) HYPERTENSION 04/24/2016 BAIMA, ERWIN L MONUMENTAL STONEMASON Ot I25.10 ATHSCL HEART DISEASE OF [place] CORONARY 04/24/2016 BAIMA, ERWIN L MONUMENTAL STONEMASON Ot 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 04/25/2016 BAIMA, ERWIN L MONUMENTAL STONEMASON Ot E78.4 OTHER HYPERLIPIDEMIA 04/25/2016 BAIMA, ERWIN L MONUMENTAL STONEMASON Ot I10 ESSENTIAL (PRIMARY) HYPERTENSION 04/25/2016 BAIMA, ERWIN L MONUMENTAL STONEMASON Ot I25.10 ATHSCL HEART DISEASE OF [place] CORONARY 04/25/2016 BAIMA, ERWIN L MONUMENTAL STONEMASON Ot 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 05/14/2016 BAIMA, ERWIN L MONUMENTAL STONEMASON Ot E78.4 OTHER HYPERLIPIDEMIA 05/14/2016 BAIMA, ERWIN L MONUMENTAL STONEMASON Ot I10 ESSENTIAL (PRIMARY) HYPERTENSION 05/14/2016 BAIMA, ERWIN L MONUMENTAL STONEMASON Ot I25.10 ATHSCL HEART DISEASE OF [place] CORONARY 05/14/2016 BAIMA, ERWIN L MONUMENTAL STONEMASON Ot 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 05/16/2016 BAIMA, ERWIN L MONUMENTAL STONEMASON Ot E78.4 OTHER HYPERLIPIDEMIA 05/16/2016 BAIMA, ERWIN L MONUMENTAL STONEMASON Ot I10 ESSENTIAL (PRIMARY) HYPERTENSION 05/16/2016 BAIMA, ERWIN L MONUMENTAL STONEMASON Ot I25.10 ATHSCL HEART DISEASE OF [place] CORONARY 05/16/2016 BAIMA, ERWIN L MONUMENTAL STONEMASON Ot 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 01/31/2017 Ot 414.01 01/31/2017 Ot V58.61 01/31/2017 JAYDE LATHAM, GIRISH Boyer Ot K21.9 GASTRO-ESOPHAGEAL REFLUX DISEASE WITHOUT 01/31/2017 JAYDE LATHAM, GIRISH Boyer Ot K59.00 CONSTIPATION, UNSPECIFIED 01/31/2017 JAYDE LATHAM, GIRISH Boyer Ot R13.10 DYSPHAGIA, UNSPECIFIED 01/31/2017 JAYDE LATHAM, GIRISH Boyer Ot Z01.818 ENCOUNTER FOR OTHER PREPROCEDURAL EXAMIN 02/04/2017 Ot 414.01 02/04/2017 Ot V58.61 02/04/2017 Ot 272.4 HYPERLIPIDEMIA NEC/NOS 02/04/2017 Ot 401.9 HYPERTENSION NOS 02/04/2017 Ot 414.00 CORON ATHEROSCLER NOS TYPE VESSEL, NATIV 02/04/2017 Ot V58.69 OTH MED,LT, CURRENT USE 02/04/2017 Ot 414.00 CORON ATHEROSCLER NOS TYPE VESSEL, NATIV 02/04/2017 Ot 414.8 CHR ISCHEMIC HRT DIS NEC 02/04/2017 Ot 786.07 WHEEZING 02/04/2017 Ot 786.2 COUGH 02/04/2017 Ot 272.4 HYPERLIPIDEMIA NEC/NOS 02/04/2017 Ot 401.9 HYPERTENSION NOS 02/04/2017 Ot 414.00 CORON ATHEROSCLER NOS TYPE VESSEL, NATIV 02/04/2017 Ot V58.69 OTH MED,LT, CURRENT USE 02/04/2017 Ot 401.9 HYPERTENSION NOS 02/04/2017 Ot 414.00 CORON ATHEROSCLER NOS TYPE VESSEL, NATIV 02/04/2017 Ot V58.69 OTH MED,LT, CURRENT USE 02/04/2017 ALIA LATHAM, TORIE Boyer Ot 724.2 LUMBAGO 02/04/2017 BAIMA, ERWIN L MONUMENTAL STONEMASON Ot 272.4 HYPERLIPIDEMIA NEC/NOS 02/04/2017 BAIMA, ERWIN L MONUMENTAL STONEMASON Ot 401.9 HYPERTENSION NOS 02/04/2017 BAIMA, ERWIN L MONUMENTAL STONEMASON Ot 414.00 CORON ATHEROSCLER NOS TYPE VESSEL, NATIV 02/04/2017 BAIMA, ERWIN L MONUMENTAL STONEMASON Ot 272.4 HYPERLIPIDEMIA NEC/NOS 02/04/2017 BAIMA, ERWIN L MONUMENTAL STONEMASON Ot 401.9 HYPERTENSION NOS 02/04/2017 BAIMA, ERWIN L MONUMENTAL STONEMASON Ot 414.00 CORON ATHEROSCLER NOS TYPE VESSEL, NATIV 02/04/2017 BAIMA, ERWIN L MONUMENTAL STONEMASON Ot 414.8 CHR ISCHEMIC HRT DIS NEC 02/04/2017 ALIA LATHAM, TORIE Boyer Ot 786.2 COUGH 02/04/2017 ALIA LATHAM, TORIE Boyer Ot 786.7 ABNORMAL CHEST SOUNDS 02/04/2017 BAIMA, ERWIN L MONUMENTAL STONEMASON Ot 272.4 HYPERLIPIDEMIA NEC/NOS 02/04/2017 BAIMA, ERWIN L MONUMENTAL STONEMASON Ot 414.00 CORON ATHEROSCLER NOS TYPE VESSEL, NATIV 02/04/2017 BAIMA, ERWIN L MONUMENTAL STONEMASON Ot 433.10 CAROTID ARTERY OCCLUSION W O CEREBRAL IN 02/04/2017 BAIMA, ERWIN L MONUMENTAL STONEMASON Ot 272.4 HYPERLIPIDEMIA NEC/NOS 02/04/2017 BAIMA, ERWIN L MONUMENTAL STONEMASON Ot 305.1 TOBACCO USE DISORDER 02/04/2017 BAIMA, ERWIN L MONUMENTAL STONEMASON Ot 401.9 HYPERTENSION NOS 02/04/2017 BAIMA, ERWIN L MONUMENTAL STONEMASON Ot 414.00 CORON ATHEROSCLER NOS TYPE VESSEL, NATIV 02/04/2017 BAIMA, ERWIN L MONUMENTAL STONEMASON Ot 496 CHR AIRWAY OBSTRUCT NEC 02/04/2017 KARLA SU MONUMENTAL STONEMASON Ot 250.00 DIAB MEGGAN WO COMPL, TYPE II OR UNSPEC TY 02/04/2017 KARLA SU MONUMENTAL STONEMASON Ot 401.9 HYPERTENSION NOS 02/04/2017 KARLA SU MONUMENTAL STONEMASON Ot 780.4 DIZZINESS AND GIDDINESS 02/04/2017 BAIMA, ERWIN L MONUMENTAL STONEMASON Ot 272.4 HYPERLIPIDEMIA NEC/NOS 02/04/2017 BAIMA, ERWIN L MONUMENTAL STONEMASON Ot 414.00 CORON ATHEROSCLER NOS TYPE VESSEL, NATIV 02/04/2017 JF CANCINO PRACTICE CLINICIAN Ot 298.9 PSYCHOSIS NOS 02/04/2017 JF CANCINO PRACTICE CLINICIAN Ot 780.4 DIZZINESS AND GIDDINESS 02/04/2017 JF CANCINO PRACTICE CLINICIAN Ot 780.79 OTH MALAISE FATIGUE 02/04/2017 JF CANCINO PRACTICE CLINICIAN Ot 781.2 ABNORMALITY OF GAIT 02/04/2017 JAYDE LATHAM, GIRISH Boyer Ot 709.9 SKIN DISORDER NOS 02/04/2017 JAYDE LATHAM, GIRISH Boyer Ot V72.84 EXAM PRE-OPERATIVE NOS 02/04/2017 KARLA SU MONUMENTAL STONEMASON Ot 786.2 COUGH 02/04/2017 OSCAR LATHAM [facility], ALI FACP CCDS Ot E78.4 OTHER HYPERLIPIDEMIA 02/04/2017 OSCAR CONTRERAS, ALI FACP CCDS Ot I10 ESSENTIAL (PRIMARY) HYPERTENSION 02/04/2017 OSCAR LATHAM [facility], ALI FACP CCDS Ot I25.10 ATHSCL HEART DISEASE OF [place] CORONARY 02/04/2017 OSCAR LATHAM [facility], ALI FACP CCDS Ot J43.8 OTHER EMPHYSEMA 02/04/2017 OSCAR LATHAM [facility], ALI FACP CCDS Ot Z72.0 TOBACCO USE 02/04/2017 JAYDE LATHAM, GIRISH Boyer Ot 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 02/04/2017 JAYDE LATHAM, GIRISH Boyer Ot I10 ESSENTIAL (PRIMARY) HYPERTENSION 02/04/2017 GIRISH DONOHUE MD Ot I25.10 ATHSCL HEART DISEASE OF [place] CORONARY 02/04/2017 JAYDE LATHAM, GIRISH Boyer Ot J44.9 CHRONIC OBSTRUCTIVE PULMONARY DISEASE, U 02/04/2017 GIRISH DONOHUE MD Ot 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 02/04/2017 JAYDE LATHAM, GIRISH Boyer Ot L82.1 OTHER SEBORRHEIC KERATOSIS 02/04/2017 KARLA SU MONUMENTAL STONEMASON Ot E11.65 TYPE 2 DIABETES MELLITUS WITH HYPERGLYCE 02/04/2017 KARLA SU MONUMENTAL STONEMASON Ot E55.9 VITAMIN D DEFICIENCY, UNSPECIFIED 02/04/2017 KARLA SU MONUMENTAL STONEMASON Ot E78.2 MIXED HYPERLIPIDEMIA 02/04/2017 KARLA SU MONUMENTAL STONEMASON Ot I10 ESSENTIAL (PRIMARY) HYPERTENSION 02/04/2017 KARLA SU MONUMENTAL STONEMASON Ot J44.9 CHRONIC OBSTRUCTIVE PULMONARY DISEASE, U 02/04/2017 ERWIN CHANG L MONUMENTAL STONEMASON Ot E78.4 OTHER HYPERLIPIDEMIA 02/04/2017 ERWIN CHANG L MONUMENTAL STONEMASON Ot I10 ESSENTIAL (PRIMARY) HYPERTENSION 02/04/2017 ERWIN CHANG L MONUMENTAL STONEMASON Ot I25.10 ATHSCL HEART DISEASE OF [place] CORONARY 02/04/2017 ERWIN CHANG MONUMENTAL STONEMASON Ot 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 02/04/2017 ERWIN CHANG MONUMENTAL STONEMASON Ot E78.4 OTHER HYPERLIPIDEMIA 02/04/2017 ERWIN CHANG MONUMENTAL STONEMASON Ot I10 ESSENTIAL (PRIMARY) HYPERTENSION 02/04/2017 ERWIN CHANG L MONUMENTAL STONEMASON Ot I25.10 ATHSCL HEART DISEASE OF [place] CORONARY 02/04/2017 ERWIN CHANG MONUMENTAL STONEMASON Ot 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 02/04/2017 GIRISH DONOHUE MD Ot E11.9 TYPE 2 DIABETES MELLITUS WITHOUT COMPLIC 02/04/2017 GIRISH DONOHUE MD Ot F17.210 NICOTINE DEPENDENCE, CIGARETTES, UNCOMPL 02/04/2017 GIRISH DONOHUE MD Ot H40.9 UNSPECIFIED GLAUCOMA 02/04/2017 GIRISH DONOHUE MD Ot I25.10 ATHSCL HEART DISEASE OF [place] CORONARY 02/04/2017 GIRISH DONOHUE MD Ot J44.9 CHRONIC OBSTRUCTIVE PULMONARY DISEASE, U 02/04/2017 GIRISH DONOHUE MD Ot K22.2 ESOPHAGEAL OBSTRUCTION 02/04/2017 GIRISH DONOHUE MD Ot K25.9 GASTRIC ULCER, UNSP ACUTE OR CHRONIC, 02/04/2017 GIRISH DONOHUE MD Ot K57.30 DVRTCLOS OF LG INT W/O PERFORATION OR AB 02/04/2017 GIRISH DONOHUE MD Ot M19.90 UNSPECIFIED OSTEOARTHRITIS, UNSPECIFIED 02/06/2017 GIRISH DONOHUE MD Ot E11.9 TYPE 2 DIABETES MELLITUS WITHOUT COMPLIC 02/06/2017 GIRISH DONOHUE MD Ot F17.210 NICOTINE DEPENDENCE, CIGARETTES, UNCOMPL 02/06/2017 GIRISH DONOHUE MD Ot H40.9 UNSPECIFIED GLAUCOMA 02/06/2017 GIRISH DONOHUE MD Ot I25.10 ATHSCL HEART DISEASE OF [place] CORONARY 02/06/2017 GIRISH DONOHUE MD Ot J44.9 CHRONIC OBSTRUCTIVE PULMONARY DISEASE, U 02/06/2017 GIRISH DONOHUE MD Ot K22.2 ESOPHAGEAL OBSTRUCTION 02/06/2017 GIRISH DONOHUE MD Ot K25.9 GASTRIC ULCER, UNSP ACUTE OR CHRONIC, 02/06/2017 GIRISH DONOHUE MD Ot K57.30 DVRTCLOS OF LG INT W/O PERFORATION OR AB 02/06/2017 JAYDE LATHAM, GIRISH M Ot M19.90 UNSPECIFIED OSTEOARTHRITIS, UNSPECIFIED 05/31/2017 KARLA SU Ot I25.10 ATHSCL HEART DISEASE OF [place] CORONARY 05/31/2017 KARLA SU MONUMENTAL STONEMASON Ot J44.9 CHRONIC OBSTRUCTIVE PULMONARY DISEASE, U 05/31/2017 KARLA SU MONUMENTAL STONEMASON Ot R63.4 ABNORMAL WEIGHT LOSS 05/31/2017 KARLA SU MONUMENTAL STONEMASON Ot R91.8 OTHER NONSPECIFIC ABNORMAL FINDING OF [place]AV[place] 05/31/2017 KARLA SU MONUMENTAL STONEMASON Ot Z72.0 TOBACCO USE 06/17/2017 KARLA SU MONUMENTAL STONEMASON Ot I25.10 ATHSCL HEART DISEASE OF [place] CORONARY 06/17/2017 KARLA SUP Ot J44.9 CHRONIC OBSTRUCTIVE PULMONARY DISEASE, U 06/17/2017 KARLA SUP Ot R63.4 ABNORMAL WEIGHT LOSS 06/17/2017 KARLA SUP Ot R91.8 OTHER NONSPECIFIC ABNORMAL FINDING OF [place] 06/17/2017 KARLA SUP Ot Z72.0 TOBACCO USE 12/05/2017 CORINE PIKE DO Ot R06.6 HICCOUGH 12/05/2017 CORINE PIKE DO Ot R14.2 ERUCTATION 12/05/2017 CORINE PIKE DO Ot Z01.818 ENCOUNTER FOR OTHER PREPROCEDURAL EXAMIN 12/06/2017 CORINE PIKE DO Ot R06.6 HICCOUGH 12/06/2017 CORINE PIKE DO Ot R14.2 ERUCTATION 12/06/2017 CORINE PKIE DO Ot Z01.818 ENCOUNTER FOR OTHER PREPROCEDURAL EXAMIN 12/06/2017 CORINE PIKE DO Ot R06.6 HICCOUGH 12/06/2017 CORINE PIKE DO Ot R14.2 ERUCTATION 12/06/2017 CORINE PIKE DO Ot Z01.818 ENCOUNTER FOR OTHER PREPROCEDURAL EXAMIN 12/10/2017 CORINE PIKE DO Ot E11.40 TYPE 2 DIABETES MELLITUS WITH DIABETIC N 12/10/2017 CORINE PIKE DO Ot E78.00 PURE HYPERCHOLESTEROLEMIA, UNSPECIFIED 12/10/2017 CORINE PIKE DO Ot F17.210 NICOTINE DEPENDENCE, CIGARETTES, UNCOMPL 12/10/2017 CORINE PIKE DO Ot F41.9 ANXIETY DISORDER, UNSPECIFIED 12/10/2017 CORINE PIKE DO Ot I10 ESSENTIAL (PRIMARY) HYPERTENSION 12/10/2017 CORINE PIKE DO Ot I25.10 ATHSCL HEART DISEASE OF [place] CORONARY 12/10/2017 CORINE PIKE DO Ot J44.9 CHRONIC OBSTRUCTIVE PULMONARY DISEASE, U 12/10/2017 CORINE PIKE DO Ot K21.9 GASTRO-ESOPHAGEAL REFLUX DISEASE WITHOUT 12/10/2017 CORINE PIKE DO Ot K22.2 ESOPHAGEAL OBSTRUCTION 12/10/2017 CORINE PIKE DO Ot K29.70 GASTRITIS, UNSPECIFIED, WITHOUT BLEEDING 12/10/2017 CORINE PIKE DO Ot K44.9 DIAPHRAGMATIC HERNIA WITHOUT OBSTRUCTION 12/10/2017 CORINE PIKE DO Ot 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 12/10/2017 CORINE PIKE DO Ot Z79.899 OTHER [facility] (CURRENT) DRUG THERAPY 12/10/2017 CORINE PIKE DO Ot Z95.5 PRESENCE OF CORONARY ANGIOPLASTY IMPLANT 12/11/2017 CORINE PIKE DO Ot E11.40 TYPE 2 DIABETES MELLITUS WITH DIABETIC N 12/11/2017 CORINE PIKE DO Ot E78.00 PURE HYPERCHOLESTEROLEMIA, UNSPECIFIED 12/11/2017 CORINE PIKE DO Ot F17.210 NICOTINE DEPENDENCE, CIGARETTES, UNCOMPL 12/11/2017 CORINE PIKE DO Ot F41.9 ANXIETY DISORDER, UNSPECIFIED 12/11/2017 CORINE PIKE DO Ot I10 ESSENTIAL (PRIMARY) HYPERTENSION 12/11/2017 CORINE PIKE DO Ot I25.10 ATHSCL HEART DISEASE OF [place] CORONARY 12/11/2017 CORINE PIKE DO Ot J44.9 CHRONIC OBSTRUCTIVE PULMONARY DISEASE, U 12/11/2017 CORINE PIKE DO Ot K21.9 GASTRO-ESOPHAGEAL REFLUX DISEASE WITHOUT 12/11/2017 CORINE PIKE DO Ot K22.2 ESOPHAGEAL OBSTRUCTION 12/11/2017 CORINE PIKE DO Ot K29.70 GASTRITIS, UNSPECIFIED, WITHOUT BLEEDING 12/11/2017 CORINE PIKE DO Ot K44.9 DIAPHRAGMATIC HERNIA WITHOUT OBSTRUCTION 12/11/2017 CORINE PIKE DO Ot 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 12/11/2017 CORINE PIKE DO Ot Z79.899 OTHER [facility] (CURRENT) DRUG THERAPY 12/11/2017 CORINE PIKE DO Ot Z95.5 PRESENCE OF CORONARY ANGIOPLASTY IMPLANT 12/11/2017 CORINE PIKE DO Ot E11.40 TYPE 2 DIABETES MELLITUS WITH DIABETIC N 12/11/2017 CORINE PIKE DO Ot E78.00 PURE HYPERCHOLESTEROLEMIA, UNSPECIFIED 12/11/2017 CORINE PIKE DO Ot F17.210 NICOTINE DEPENDENCE, CIGARETTES, UNCOMPL 12/11/2017 CORINE PIKE DO Ot F41.9 ANXIETY DISORDER, UNSPECIFIED 12/11/2017 CORINE PIKE DO Ot I10 ESSENTIAL (PRIMARY) HYPERTENSION 12/11/2017 CORINE PIKE DO Ot I25.10 ATHSCL HEART DISEASE OF [place] CORONARY 12/11/2017 CORINE PIKE DO Ot J44.9 CHRONIC OBSTRUCTIVE PULMONARY DISEASE, U 12/11/2017 CORINE PIKE DO Ot K21.9 GASTRO-ESOPHAGEAL REFLUX DISEASE WITHOUT 12/11/2017 CORINE PIKE DO Ot K22.2 ESOPHAGEAL OBSTRUCTION 12/11/2017 CORINE PIKE DO Ot K29.70 GASTRITIS, UNSPECIFIED, WITHOUT BLEEDING 12/11/2017 CORINE PIKE DO Ot K44.9 DIAPHRAGMATIC HERNIA WITHOUT OBSTRUCTION 12/11/2017 CORINE PIKE DO Ot Z79.84 [facility] (CURRENT) USE OF ORAL HYPOGLYC 12/11/2017 CORINE PIKE DO Ot Z79.899 OTHER [facility] (CURRENT) DRUG THERAPY 12/11/2017 CORINE PIKE DO Ot Z95.5 PRESENCE OF CORONARY ANGIOPLASTY IMPLANT 01/05/2018 Ot 414.01 01/05/2018 Ot V58.61 01/05/2018 ALIA LATHAM, TORIE Boyer Ot 724.2 LUMBAGO 01/05/2018 ERWIN CHANG MONUMENTAL STONEMASON Ot 272.4 HYPERLIPIDEMIA NEC/NOS 01/05/2018 ERWIN CHANG MONUMENTAL STONEMASON Ot 401.9 HYPERTENSION NOS 01/05/2018 BAIMA, ERWIN L MONUMENTAL STONEMASON Ot 414.00 CORON ATHEROSCLER NOS TYPE VESSEL, NATIV 01/05/2018 BAIMA, ERWIN L MONUMENTAL STONEMASON Ot 272.4 HYPERLIPIDEMIA NEC/NOS 01/05/2018 BAIMA, ERWIN L MONUMENTAL STONEMASON Ot 401.9 HYPERTENSION NOS 01/05/2018 BAIMA, ERWIN L MONUMENTAL STONEMASON Ot 414.00 CORON ATHEROSCLER NOS TYPE VESSEL, NATIV 01/05/2018 BAIMA, ERWIN L MONUMENTAL STONEMASON Ot 414.8 CHR ISCHEMIC HRT DIS NEC 01/05/2018 TORIE ROJO MD Ot 786.2 COUGH 01/05/2018 TORIE ROJO MD Ot 786.7 ABNORMAL CHEST SOUNDS 01/05/2018 BAIMA, ERWIN L MONUMENTAL STONEM[place] Ot 272.4 HYPERLIPIDEMIA NEC/NOS 01/05/2018 BAIMA, ERWIN L MONUMENTAL STONEM[place] Ot 414.00 CORON ATHEROSCLER NOS TYPE VESSEL, NATIV 01/05/2018 BAIMA, ERWIN L MONUMENTAL ST[place]EM[place] Ot 433.10 CAROTID ARTERY OCCLUSION W O CEREBRAL IN 01/05/2018 BAIMA, ERWIN L MONUMENTAL [place]EM[place] Ot 272.4 HYPERLIPIDEMIA NEC/NOS 01/05/2018 BAIMA, ERWIN L MONUMENTAL [place]EM[place] Ot 305.1 TOBACCO USE DISORDER 01/05/2018 BAIMA, ERWIN L MONUMENTAL [place]EM[place] Ot 401.9 HYPERTENSION NOS 01/05/2018 BAIMA, ERWIN L MONUMENTAL [place]EM[place] Ot 414.00 CORON ATHEROSCLER NOS TYPE VESSEL, NATIV 01/05/2018 BAIMA, ERWIN L MONUMENTAL STONEMASON Ot 496 CHR AIRWAY OBSTRUCT NEC 01/05/2018 KARLA SU MONUMENTAL STONEMASON Ot 250.00 DIAB MEGGAN WO COMPL, TYPE II OR UNSPEC TY 01/05/2018 KARLA SU MONUMENTAL [place]EM[place] Ot 401.9 HYPERTENSION NOS 01/05/2018 KARLA SU MONUMENTAL [place]EM[place] Ot 780.4 DIZZINESS AND GIDDINESS 01/05/2018 BAIMA, ERWIN L MONUMENTAL ST[place]EM[place] Ot 272.4 HYPERLIPIDEMIA NEC/NOS 01/05/2018 BAIMA, ERWIN L MONUMENTAL [place]EM[place] Ot 414.00 CORON ATHEROSCLER NOS TYPE VESSEL, NATIV 01/05/2018 JF CANCINO PRACTICE CLINICIAN Ot 298.9 PSYCHOSIS NOS 01/05/2018 JF CANCINO PRACTICE CLINICIAN Ot 780.4 DIZZINESS AND GIDDINESS 01/05/2018 JF CANCINO PRACTICE CLINICIAN Ot 780.79 OTH MALAISE FATIGUE 01/05/2018 BARAK JF Frankie PRACTICE CLINICIAN Ot 781.2 ABNORMALITY OF GAIT 01/05/2018 JAYDE LATHAM, GIRISH Boyer Ot 709.9 SKIN DISORDER NOS 01/05/2018 JAYDE LATHAM, GIRISH Boyer Ot V72.84 EXAM PRE-OPERATIVE NOS 01/05/2018 KARLA SU MONUMENTAL STONEMASON Ot 786.2 COUGH 01/05/2018 OSCAR LATHAM FAC, ALI FACP CCDS Ot E78.4 OTHER HYPERLIPIDEMIA 01/05/2018 OSCAR LATHAM FAC, ALI FACP CCDS Ot I10 ESSENTIAL (PRIMARY) HYPERTENSION 01/05/2018 OSCAR LATHAM FAC, ALI FACP CCDS Ot I25.10 ATHSCL HEART DISEASE OF [place] CORONARY 01/05/2018 OSCAR LATHAM FAC, ALI FACP CCDS Ot J43.8 OTHER EMPHYSEMA 01/05/2018 OSCAR LATHAM FACBasilio, ALI FACP CCDS Ot Z72.0 TOBACCO USE 01/05/2018 GIRISH DONOHUE MD Ot 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 01/05/2018 GRIISH DONOHUE MD Ot I10 ESSENTIAL (PRIMARY) HYPERTENSION 01/05/2018 GIRISH DONOHUE MD Ot I25.10 ATHSCL HEART DISEASE OF [place] CORONARY 01/05/2018 GIRISH ODNOHUE MD Ot J44.9 CHRONIC OBSTRUCTIVE PULMONARY DISEASE, U 01/05/2018 GIRISH DONOHUE MD Ot 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 01/05/2018 GIRISH DONOHUE MD Ot L82.1 OTHER SEBORRHEIC KERATOSIS 01/05/2018 KARLA SU MONUMENTAL STONEMASON Ot E11.65 TYPE 2 DIABETES MELLITUS WITH HYPERGLYCE 01/05/2018 KARLA SU MONUMENTAL STONEMASON Ot E55.9 VITAMIN D DEFICIENCY, UNSPECIFIED 01/05/2018 KARLA SU MONUMENTAL STONEMASON Ot E78.2 MIXED HYPERLIPIDEMIA 01/05/2018 KARLA SU MONUMENTAL STONEMASON Ot I10 ESSENTIAL (PRIMARY) HYPERTENSION 01/05/2018 KARLA SU MONUMENTAL STONEMASON Ot J44.9 CHRONIC OBSTRUCTIVE PULMONARY DISEASE, U 01/05/2018 ERWIN CHANG MONUMENTAL STONEMASON Ot E78.4 OTHER HYPERLIPIDEMIA 01/05/2018 ERWIN CHANG MONUMENTAL STONEMASON Ot I10 ESSENTIAL (PRIMARY) HYPERTENSION 01/05/2018 BAIMA, ERWIN L MONUMENTAL STONEMASON Ot I25.10 ATHSCL HEART DISEASE OF [place] CORONARY 01/05/2018 BAIERWIN POTTER L MONUMENTAL STONEMASON Ot 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 01/05/2018 BAIERWIN POTTER L MONUMENTAL STONEMASON Ot E78.4 OTHER HYPERLIPIDEMIA 01/05/2018 BAIABBEY, ERWIN L MONUMENTAL STONEMASON Ot I10 ESSENTIAL (PRIMARY) HYPERTENSION 01/05/2018 BAIABBEY ERWIN L MONUMENTAL STONEMASON Ot I25.10 ATHSCL HEART DISEASE OF [place] CORONARY 01/05/2018 BAIERWIN POTTER MONUMENTAL STONEMASON Ot 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 01/05/2018 KARLA SU MONUMENTAL STONEMASON Ot I25.10 ATHSCL HEART DISEASE OF [place] CORONARY 01/05/2018 KARLA SU MONUMENTAL STONEMASON Ot J44.9 CHRONIC OBSTRUCTIVE PULMONARY DISEASE, U 01/05/2018 KARLA SU MONUMENTAL STONEMASON Ot R63.4 ABNORMAL WEIGHT LOSS 01/05/2018 KARLA SU MONUMENTAL STONEMASON Ot R91.8 OTHER NONSPECIFIC ABNORMAL FINDING OF [place] 01/05/2018 KARLA SU MONUMENTAL STONEMASON Ot Z72.0 TOBACCO USE 01/07/2018 COLTHARP DO, ISAC A Ot J20.8 ACUTE BRONCHITIS DUE TO OTHER SPECIFIED 01/27/2018 COLTHARP DO, ISAC A Ot J20.8 ACUTE BRONCHITIS DUE TO OTHER SPECIFIED 03/06/2018 COLTHARP DO, ISAC A Ot J20.8 ACUTE BRONCHITIS DUE TO OTHER SPECIFIED 03/10/2018 Ot 414.01 03/10/2018 Ot V58.61 03/10/2018 ALIA LATHAM, TORIE Boyer Ot 724.2 LUMBAGO 03/10/2018 BAIMA, ERWIN L MONUMENTAL STONEMASON Ot 272.4 HYPERLIPIDEMIA NEC/NOS 03/10/2018 BAIMA, ERWIN L MONUMENTAL STONEMASON Ot 401.9 HYPERTENSION NOS 03/10/2018 BAIMA, ERWIN L MONUMENTAL STONEMASON Ot 414.00 CORON ATHEROSCLER NOS TYPE VESSEL, NATIV 03/10/2018 BAIMA, ERWIN L MONUMENTAL STONEMASON Ot 272.4 HYPERLIPIDEMIA NEC/NOS 03/10/2018 BAIMA, ERWIN L MONUMENTAL STONEMASON Ot 401.9 HYPERTENSION NOS 03/10/2018 BAIMA, ERWIN L MONUMENTAL STONEMASON Ot 414.00 CORON ATHEROSCLER NOS TYPE VESSEL, NATIV 03/10/2018 BAIMA, ERWIN L MONUMENTAL STONEMASON Ot 414.8 CHR ISCHEMIC HRT DIS NEC 03/10/2018 ALIA LATHAM, TORIE Boyer Ot 786.2 COUGH 03/10/2018 TORIE ROJO MD Ot 786.7 ABNORMAL CHEST SOUNDS 03/10/2018 BAIMA, ERWIN L MONUMENTAL STONEM[place]ON Ot 272.4 HYPERLIPIDEMIA NEC/NOS 03/10/2018 BAIMA, ERWIN L MONUMENTAL STONEMASON Ot 414.00 CORON ATHEROSCLER NOS TYPE VESSEL, NATIV 03/10/2018 BAIMA, ERWIN L MONUMENTAL STONEMASON Ot 433.10 CAROTID ARTERY OCCLUSION W O CEREBRAL IN 03/10/2018 BAIMA, ERWIN L MONUMENTAL STONEMASON Ot 272.4 HYPERLIPIDEMIA NEC/NOS 03/10/2018 BAIMA, ERWIN L MONUMENTAL STONEMASON Ot 305.1 TOBACCO USE DISORDER 03/10/2018 BAIMA, ERWIN L MONUMENTAL STONEMASON Ot 401.9 HYPERTENSION NOS 03/10/2018 BAIMA, ERWIN L MONUMENTAL STONEMASON Ot 414.00 CORON ATHEROSCLER NOS TYPE VESSEL, NATIV 03/10/2018 BAIMA, ERWIN L MONUMENTAL STONEMASON Ot 496 CHR AIRWAY OBSTRUCT NEC 03/10/2018 KARLA SU MONUMENTAL STONEMASON Ot 250.00 DIAB MEGGAN WO COMPL, TYPE II OR UNSPEC TY 03/10/2018 KARLA SU MONUMENTAL STONEMASON Ot 401.9 HYPERTENSION NOS 03/10/2018 KARLA SU MONUMENTAL STONEMASON Ot 780.4 DIZZINESS AND GIDDINESS 03/10/2018 BAIMA, ERWIN L MONUMENTAL STONEMASON Ot 272.4 HYPERLIPIDEMIA NEC/NOS 03/10/2018 BAIMA, ERWIN L MONUMENTAL STONEMASON Ot 414.00 CORON ATHEROSCLER NOS TYPE VESSEL, NATIV 03/10/2018 JF CANCINO PRACTICE CLINICIAN Ot 298.9 PSYCHOSIS NOS 03/10/2018 JF CANCINO PRACTICE CLINICIAN Ot 780.4 DIZZINESS AND GIDDINESS 03/10/2018 JF CANCINO PRACTICE CLINICIAN Ot 780.79 OTH MALAISE FATIGUE 03/10/2018 JF CANCINO PRACTICE CLINICIAN Ot 781.2 ABNORMALITY OF GAIT 03/10/2018 JAYDE LATHAM, GIRISH Boyer Ot 709.9 SKIN DISORDER NOS 03/10/2018 JAYDE LATHAM, GIRISH Boyer Ot V72.84 EXAM PRE-OPERATIVE NOS 03/10/2018 KARLA SU MONUMENTAL STONEMASON Ot 786.2 COUGH 03/10/2018 OSCAR LATHAM FACC, ALI FACP CCDS Ot E78.4 OTHER HYPERLIPIDEMIA 03/10/2018 SOCAR LATHAM FAC, ALI FACP CCDS Ot I10 ESSENTIAL (PRIMARY) HYPERTENSION 03/10/2018 OSCAR LATHAM FAC, ALI FACP CCDS Ot I25.10 ATHSCL HEART DISEASE OF [place] CORONARY 03/10/2018 OSCAR LATHAM [facility], ALI FACP CCDS Ot J43.8 OTHER EMPHYSEMA 03/10/2018 OSCAR LATHAM FAC, ALI FACP CCDS Ot Z72.0 TOBACCO USE 03/10/2018 JAYDE LATHAM, GIRISH Boyer Ot 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 03/10/2018 JAYDE LATHAM, GIRISH Boyer Ot I10 ESSENTIAL (PRIMARY) HYPERTENSION 03/10/2018 JAYDE LATHAM, GIRISH Boyer Ot I25.10 ATHSCL HEART DISEASE OF [place] CORONARY 03/10/2018 JAYDE LATHAM, GIRISH Boyer Ot J44.9 CHRONIC OBSTRUCTIVE PULMONARY DISEASE, U 03/10/2018 JAYDE LATHAM, GIRISH Boyer Ot 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 03/10/2018 JAYDE LATHAM, GIRISH Boyer Ot L82.1 OTHER SEBORRHEIC KERATOSIS 03/10/2018 KARLA SU MONUMENTAL STONEMASON Ot E11.65 TYPE 2 DIABETES MELLITUS WITH HYPERGLYCE 03/10/2018 KARLA SU MONUMENTAL STONEMASON Ot E55.9 VITAMIN D DEFICIENCY, UNSPECIFIED 03/10/2018 KARLA SU MONUMENTAL STONEMASON Ot E78.2 MIXED HYPERLIPIDEMIA 03/10/2018 KARLA SU MONUMENTAL STONEMASON Ot I10 ESSENTIAL (PRIMARY) HYPERTENSION 03/10/2018 KARLA SU MONUMENTAL STONEMASON Ot J44.9 CHRONIC OBSTRUCTIVE PULMONARY DISEASE, U 03/10/2018 BAIMA ERWIN L MONUMENTAL STONEMASON Ot E78.4 OTHER HYPERLIPIDEMIA 03/10/2018 BAIMA ERWIN L MONUMENTAL STONEMASON Ot I10 ESSENTIAL (PRIMARY) HYPERTENSION 03/10/2018 BAIMA ERWIN L MONUMENTAL STONEMASON Ot I25.10 ATHSCL HEART DISEASE OF [place] CORONARY 03/10/2018 BERNARDO ERWIN L MONUMENTAL STONEMASON Ot 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 03/10/2018 BAIMA ERWNI L MONUMENTAL STONEMASON Ot E78.4 OTHER HYPERLIPIDEMIA 03/10/2018 BAIMA, ERWIN L MONUMENTAL STONEMASON Ot I10 ESSENTIAL (PRIMARY) HYPERTENSION 03/10/2018 BAIMA ERWIN L MONUMENTAL STONEMASON Ot I25.10 ATHSCL HEART DISEASE OF [place] CORONARY 03/10/2018 ERWIN CHANG MONUMENTAL STONEMASON Ot 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 03/10/2018 KARLA SU MONUMENTAL STONEMASON Ot I25.10 ATHSCL HEART DISEASE OF [place] CORONARY 03/10/2018 KARLA SU MONUMENTAL STONEMASON Ot J44.9 CHRONIC OBSTRUCTIVE PULMONARY DISEASE, U 03/10/2018 SHARLENEKARLA MONUMENTAL STONEMASON Ot R63.4 ABNORMAL WEIGHT LOSS 03/10/2018 SHARLENEKARLA MONUMENTAL STONEMASON Ot R91.8 OTHER NONSPECIFIC ABNORMAL FINDING OF [place] 03/10/2018 SUKARLA MONUMENTAL STONEMASON Ot Z72.0 TOBACCO USE 03/10/2018 COLTHARP DO, ISAC A Ot J20.8 ACUTE BRONCHITIS DUE TO OTHER SPECIFIED Procedures There is no data. Results Test Result Range Capillary blood glucose measurement by glucometer (mass/volume) - 12/10/17 11: 27 Capillary blood glucose measurement by glucometer (mass/volume) 87 mg/dL 70-110 Complete blood count (CBC) with automated white blood cell (WBC) differential - 03/19/18 14:45 Blood leukocytes automated count (number/volume) 8.9 10*3/uL 4.3-11.0 Blood erythrocytes automated count (number/volume) 3.53 10*6/uL 4.35-5.85 Venous blood hemoglobin measurement (mass/volume) 12.5 g/dL 13.3-17.7 Blood hematocrit (volume fraction) 36 % 40-54 Automated erythrocyte mean corpuscular volume 103 [foz_us] 80-99 Automated erythrocyte mean corpuscular hemoglobin (mass per erythrocyte) 35 pg 25-34 Automated erythrocyte mean corpuscular hemoglobin concentration measurement ( mass/volume) 35 g/dL 32-36 Automated erythrocyte distribution width ratio 14.2 % 10.0-14.5 Automated blood platelet count (count/volume) 194 10*3/uL 130-400 Automated blood platelet mean volume measurement 9.9 [foz_us] 7.4-10.4 Automated blood neutrophils/100 leukocytes 72 % 42-75 Automated blood lymphocytes/100 leukocytes 20 % 12-44 Blood monocytes/100 leukocytes 7 % 0-12 Automated blood eosinophils/100 leukocytes 2 % 0-10 Automated blood basophils/100 leukocytes 0 % 0-10 Blood neutrophils automated count (number/volume) 6.4 10*3 1.8-7.8 Blood lymphocytes automated count (number/volume) 1.7 10*3 1.0-4.0 Blood monocytes automated count (number/volume) 0.6 10*3 0.0-1.0 Automated eosinophil count 0.1 10*3/uL 0.0-0.3 Automated blood basophil count (count/volume) 0.0 10*3/uL 0.0-0.1 Whole blood basic metabolic panel - 03/19/18 14:45 Serum or plasma sodium measurement (moles/volume) 139 mmol/L 135-145 Serum or plasma potassium measurement (moles/volume) 4.2 mmol/L 3.6-5.0 Serum or plasma chloride measurement (moles/volume) 105 mmol/L 98-107 Carbon dioxide 26 mmol/L 21-32 Serum or plasma anion gap determination (moles/volume) 8 mmol/L 5-14 Serum or plasma urea nitrogen measurement (mass/volume) 17 mg/dL 7-18 Serum or plasma creatinine measurement (mass/volume) 0.92 mg/dL 0.60-1.30 Serum or plasma urea nitrogen/creatinine mass ratio 18 NRG Serum or plasma creatinine measurement with calculation of estimated glomerular filtration rate > NRG Serum or plasma glucose measurement (mass/volume) 214 mg/dL 70-105 Serum or plasma calcium measurement (mass/volume) 9.5 mg/dL 8.5-10.1 Encounters ACCT No. Visit Date/Time Discharge Status Pt. Type Provider Facility Loc./Unit Complaint [id number] 01/05/2018 16:32:00 01/05/2018 23:59:59 CLS Outpatient COLTHISAC RINCON DO [facility] RAD J20.8 [id number] 12/10/2017 11:05:00 12/10/2017 13:00:00 DIS Outpatient CORINE PIKE DO [facility] ENDO BELCHING/ABD PAIN/ HICCUPS [id number] 12/05/2017 06:07:00 12/05/2017 12:47:00 DIS Outpatient CORINE PIKE DO [facility] PREOP EGD [id number] 05/10/2017 12:49:00 05/10/2017 23:59:59 CLS Outpatient KARLA SUP [facility] RAD COPD,TOBACCO USE, WT LOSS [id number] 02/04/2017 08:22:00 02/04/2017 12:10:00 DIS Outpatient GIRISH DONOHUE MD [facility] ENDO CONSTIPATION, DYSPHAGIA, REFLUX [id number] 01/31/2017 06:26:00 01/31/2017 14:50:00 DIS Outpatient GIRISH DONOHUE MD [facility] PREOP COLO/EGD [id number] 04/24/2016 11:08:00 04/24/2016 23:59:59 CLS Outpatient ERWIN CHANG [facility] CARD CAD,CAROITD ARTERIAL DISEASE,HTN,HLP [id number] 04/20/2016 11:43:00 04/20/2016 23:59:59 CLS Outpatient ERWIN CHANGP [facility] CARD CAD,CAROTID ARTERIAL DISEASE,HTN,HLP [id number] 12/07/2015 12:29:00 12/07/2015 23:59:59 CLS Outpatient GIRISH DONOHUE MD [facility] SDC LESIONS [id number] 12/07/2015 12:01:00 12/07/2015 23:59:59 CLS Outpatient KARLA SU [facility] LAB HTN,TYPE 2 DIABETES ,VIT D DEF,CHRONIC OBSTRUCTIVE [id number] 11/21/2015 13:17:00 11/21/2015 14:09:00 DIS Outpatient GIRISH DONOHUE MD [facility] PREOP LESIONS [id number] 06/10/2015 10:22:00 06/10/2015 23:59:59 CLS Outpatient OSCAR LATHAM FACC, MARLENY FACVanessa CCDS [facility] CARD COPD,CAD [id number] 05/06/2015 14:12:00 05/06/2015 23:59:59 CLS Outpatient KARLA SUP [facility] RAD COUGH [id number] 03/23/2015 07:31:00 03/23/2015 12:15:00 DIS Outpatient GIRISH DONOHUE MD [facility] SDC LESION [id number] 03/16/2015 11:34:00 03/16/2015 23:59:59 CLS Outpatient GIRISH DONOHUE MD [facility] PREOP LESION [id number] 02/28/2015 18:55:00 02/28/2015 21:13:00 DIS Emergency VITOR DOKARMEN K [facility] ER DIZZINESS,VOMITING [id number] 02/23/2015 13:01:00 02/23/2015 23:59:59 CLS Outpatient JF CANCINO APRN [facility] RAD UNSTEADY GAIT, DIZZINESS, INTERMEDIATE CONFUSION, [id number] 12/30/2014 09:50:00 12/30/2014 23:59:59 CLS Outpatient BERNARDO ERWIN L MONUMENTAL STONEMASON [facility] LAB CAD, HYPERLIPIDEMIA [id number] 12/23/2014 16:09:00 12/23/2014 23:59:59 CLS Outpatient KARLA SU MONUMENTAL STONEMASON [facility] RT DIZZINESS,DM,HTN [id number] 07/19/2014 14:32:00 07/19/2014 23:59:59 CLS Outpatient BAIMA ERWIN L MONUMENTAL STONEMASON [facility] RAD CAD,COPD,HTN, HYPERLIPADEMIA [id number] 06/01/2014 10:19:00 06/01/2014 23:59:59 CLS Outpatient BAIABBEY ERWIN L MONUMENTAL STONEMASON [facility] LAB CAD, HYPERLIPADEMIA [id number] 04/21/2014 15:28:00 04/21/2014 23:59:59 CLS Outpatient ALIA LATHAM, TORIE Boyer [facility] RAD COUGH,BI CRACKLES [id number] 01/28/2014 07:53:00 01/28/2014 23:59:59 CLS Outpatient BAIMA, ERWIN L MONUMENTAL STONEMASON [facility] CARD HTN,CARDIOMYOPATHY, HLP [id number] 11/23/2013 08:58:00 11/23/2013 23:59:59 CLS Outpatient BAIMA, ERWIN L MONUMENTAL STONEMASON [facility] LAB STATIN TC,HTN, HYPLIPADEMIA [id number] 05/11/2013 16:12:00 05/11/2013 23:59:59 CLS Outpatient ALIA LATHAM, TORIE Boyer [facility] RAD LOW BACK PAIN [id number] 03/21/2018 08:30:00 PEN Preadmit GUSTAVO LATHAM, JIGNESH Mendez [facility] SDC SQUAMOUS CELL NASAL DORSUM, NASAL ALA LESION [id number] 03/19/2018 15:18:00 Document Registration [id number] 04/24/2016 11:07:00 Document Registration [id number] 04/24/2016 11:06:00 Document Registration [id number] 04/24/2016 11:06:00 Document Registration [id number] 06/23/2012 13:16:00 Document Registration [id number] 05/26/2012 09:47:00 Document Registration [id number] 04/01/2012 16:36:00 Document Registration [id number] 12/24/2011 14:06:00 Document Registration [id number] 11/19/2011 09:23:00 Document Registration [id number] 05/31/2011 07:52:00 Document Registration [id number] 05/18/2011 09:02:00 Document Registration [id number] 11/10/2010 09:23:00 Document Registration [id number] 06/27/2007 00:00:00 Document Registration [id number] 05/06/2015 14:12:55 ACT Document Registration [id number] 04/25/2017 15:53:51 04/25/2017 23:59:59 CLS Outpatient
[2018-03-21] MEDS ORDERED: LACTATED RINGERS 1,000 ML IV PRN (07:06)
--- NOTE | 2018-03-21 07:33 | Progress Note-Pre Operative ---
Pre-Operative Progress Note H&P Reviewed The H&P was reviewed, patient examined and no changes noted. Date Seen by Provider: Mar 21, 2018 Time Seen by Provider: 07:00 Date H&P Reviewed: Mar 21, 2018 Time H&P Reviewed: 07:00 Pre-Operative Diagnosis: Multiple Nasal Lesions JIGNESH CHEN MD Mar 21, 2018 7:33 am
[2018-03-21] MEDS ORDERED: proPOfol 200 MG/20 ML (DIPRIVAN) VIAL IV ONE (07:58)
[2018-03-21] MEDS ORDERED: DEXAMETHASONE 10 MG/ML (DECADRON) 1 ML VIAL ONE (07:58)
[2018-03-21] MEDS ORDERED: ONDANSETRON 4 MG/2 ML (SDV) Z0FRAN ONE (07:58)
[2018-03-21] MEDS ORDERED: ROCURONIUM 10 MG/ML 5 ML SYRINGE IV ONE (07:58)
[2018-03-21] MEDS ORDERED: LIDOCAINE PF 2% 5 ML (XYLOCAINE) VIAL ONE (07:58)
[2018-03-21] MEDS ORDERED: fentaNYL INJECTION 100 MCG/2 ML AMP ONE (07:59)
[2018-03-21] MEDS ORDERED: MIDAZOLAM 2 MG/2 ML (VERSED) VIAL ONE (07:59)
[2018-03-21] MEDS ORDERED: SEVOFLURANE (ULTANE) 15 ML INHAL SOLN ONE ×2 (07:59→09:48)
[2018-03-21] MEDS ORDERED: FAMOTIDINE 20MG/2ML IV (PEPCID) IVP ONE (08:00)
[2018-03-21] MEDS ORDERED: FAMOTIDINE 20MG/2ML IV (PEPCID) ONE (08:08)
[2018-03-21] MEDS ORDERED: MUPIROCIN 2% OINT 22 GM (BACTROBAN) TUBE ONE (08:12)
[2018-03-21] MEDS ORDERED: LIDOCAINE/EPI 1%-1:200,000 (XYLOCAINE) 10 ML VIAL ONE (08:13)
--- NOTE | 2018-03-21 09:40 | Progress Note-Post Operative ---
Post-Operative Progess Note Surgeon (s)/Psychologist Personnel (s) Surgeon JIGNESH CHEN MD Psychologist Personnel n/a Pre-Operative Diagnosis Multiple Nasal Lesions Post-Operative Diagnosis same Post-Op Procedure Note Date of Procedure: Mar 21, 2018 Name of Procedure Performed: Excision of Multiple Nasal Lesion, REconsturction with FTSG, Donor Site Left Neck Description & Findings Description and Findings: n/a Anesthesia Type gen lma Estimated Blood Loss minimal Packing Nasal Tip Lesion, NAsal dorsum lesion, Left Nasal Alae Lesion-margins all clear. Specimen(s) collected/removed see above JIGNESH CHEN MD Mar 21, 2018 9:40 am
[2018-03-21] MEDS ORDERED: ACETAMINOPHEN 325 MG TABLET PO PRN ×2 (09:45→10:00)
[2018-03-21] MEDS ORDERED: HYDROcodone/APAP 5 MG/325 MG (LORTAB) TAB PO PRN (09:45)
[2018-03-21] MEDS ORDERED: LEVO500T2 PO (09:59)
[2018-03-21] MEDS ORDERED: HYDR-3812 PO (09:59)
[2018-03-21] MEDS ORDERED: ONDANSETRON 4 MG/2 ML (SDV) Z0FRAN IVP PRN (10:00)
[2018-03-21] MEDS ORDERED: morphine INJ 10 MG/ML 1ML (SYR OR VIAL) IVP PRN (10:00)
[2018-03-21 10:30] VITALS: BP 154/74
[2018-03-21 11:00] VITALS: BP 143/62
[2018-03-21 11:30] VITALS: BP 153/75
== END 2018-03-21 11:30 | disposition home or self-care (01) ==
LOC: SDC 06:41
PROVIDERS: ATTEND Otolaryngology Otolaryngology/Facial Plastic Surgery
DX: C44.82 Squamous cell carcinoma of overlapping sites of skin (principal); I25.10 Atherosclerotic heart disease of native coronary artery without angina pectoris; I10 Essential (primary) hypertension; J44.9 Chronic obstructive pulmonary disease, unspecified; E11.40 Type 2 diabetes mellitus with diabetic neuropathy, unspecified; K21.9 Gastro-esophageal reflux disease without esophagitis; F17.210 Nicotine dependence, cigarettes, uncomplicated; Z95.5 Presence of coronary angioplasty implant and graft; Z79.4 Long term (current) use of insulin; Z79.82 Long term (current) use of aspirin
CPT/HCPCS: 82962

== ENCOUNTER → 2018-09-16 | Outpatient (CLI) | payer MEDICARE, OTHER ==
[~2018-09-16] VITALS: Ht 180.3 cm; Wt 71.2 kg
[~2018-09-16] MED LIST changes: +HYDR-3812 PO; +LEVO500T2 PO; +METF-397 PO; -METF500T5 PO; +REGADENOSON 0.4 MG/5 ML SYR (LEXISCAN) IV ONE
[2018-09-16] MEDS: CATHETER FLUSH 10 ML SYR IV PRN ×2 (11:56→13:20)
[2018-09-16 13:19] VITALS: BP 167/79
--- NOTE | 2018-09-17 13:37 | STRESS TEST ---
DATE OF SERVICE: 09/16/2018 RESTING AND POST REGADENOSON TECHNETIUM-99M TETROFOSMIN SPECT CT IMAGING ORDERING PHYSICIAN: Carly Antonio APRN. PRIMARY PHYSICIAN: Dr. Ash. CLINICAL DIAGNOSIS: Coronary artery disease. Baseline images were carried out after an injection of 10.95 mCi technetium-99m Tetrofosmin. This was followed by 0.4 mg of Regadenoson and 30 mCi of technetium-99m Tetrofosmin for stress imaging. The electrocardiogram showed sinus rhythm at baseline with nonspecific T-wave abnormality. The electrocardiogram did not change significantly with the Regadenoson infusion. Isolated premature ventricular contractions were seen. The patient tolerated the procedure well. Review of images at rest and following stress indicate some degree of diminished count uptake in a localized portion of the apex. This is seen both at rest and following Regadenoson infusion. Gated images show normal global left ventricular systolic murmur, normal regional wall motion including the apex. It appears that the diminished count uptake in a small portion of the apex is due to apical thinning. Left ventricular ejection fraction is calculated to be 45%. Left ventricular end diastolic volume is 88 mL. TID is absent (1.06). CONCLUSIONS: 1. Small apical infarction versus apical thinning without ischemia. 2. No distinct regional wall motion abnormality is seen. 3. Left ventricular ejection fraction is calculated to be 45%, but subjectively, appears somewhat higher than that. Job ID: [id number] DocumentID: [id number] Dictated Date: 09/17/2018 13:25:10 Bag Mender Date: 09/17/2018 13:36:17 Dictated By: MARLENY MOORE MD, MA, FACP, FACC,
== END ==
LOC: CARD 11:28
PROVIDERS: ATTEND Nurse Practitioner Family
DX: I25.10 Atherosclerotic heart disease of native coronary artery without angina pectoris (principal); I77.89 Other specified disorders of arteries and arterioles; I10 Essential (primary) hypertension; E78.5 Hyperlipidemia, unspecified; R60.0 Localized edema; Z72.0 Tobacco use
CPT/HCPCS: 78452; 93017

== ENCOUNTER 2018-11-19 12:02 | Outpatient (CLI) | payer MEDICARE, OTHER ==
[~2018-11-19] VITALS: Ht 180.3 cm; Wt 70.3 kg
[~2018-11-19 12:02] MED LIST changes: -REGADENOSON 0.4 MG/5 ML SYR (LEXISCAN) IV ONE
[2018-11-19] MEDS ORDERED: TEST200V21 IM (12:18)
[2018-11-19] MEDS ORDERED: ASPI325T32 PO (12:18)
[2018-11-19] MEDS ORDERED: ATEN50TA PO (12:18)
[2018-11-19] MEDS ORDERED: OMEP20CA12 PO (12:18)
[2018-11-19 12:20] VITALS: BP 131/61
[2018-11-19 12:58] LABS: BASOPHILS % (AUTO) 0 % (0-10); EOSINOPHILS # (AUTO) 0.3 10^3/uL (0.0-0.3); EOSINOPHILS % (AUTO) 5 % (0-10); HEMATOCRIT 36 % (40-54); HEMOGLOBIN 11.8 G/DL (13.3-17.7); LYMPHOCYTES # (AUTO) 2.4 X 10^3 (1.0-4.0); LYMPHOCYTES % (AUTO) 33 % (12-44); MEAN CORPUSCULAR HEMOGLOBIN 34 PG (25-34); MEAN CORPUSCULAR HGB CONC 33 G/DL (32-36); MEAN CORPUSCULAR VOLUME 101 FL (80-99); MEAN PLATELET VOLUME 9.6 FL (7.4-10.4); MONOCYTES # (AUTO) 0.5 X 10^3 (0.0-1.0); MONOCYTES % (AUTO) 7 % (0-12); NEUTROPHILS # (AUTO) 3.9 X 10^3 (1.8-7.8); NEUTROPHILS % (AUTO) 55 % (42-75); PLATELET COUNT 205 10^3/uL (130-400); WHITE BLOOD COUNT 7.2 10^3/uL (4.3-11.0)
[2018-11-19 13:18] LABS: BUN/CREATININE RATIO 16; CALCIUM 9.5 MG/DL (8.5-10.1); CARBON DIOXIDE 25 MMOL/L (21-32); CHLORIDE 103 MMOL/L (98-107); CREATININE SERUM 1.12 MG/DL (0.60-1.30); GFR ESTIMATED > 60; GLUCOSE 139 MG/DL (70-105); POTASSIUM 4.3 MMOL/L (3.6-5.0); SODIUM 136 MMOL/L (135-145)
--- NOTE | 2018-11-19 14:51 | Diagnostic Imaging Report ---
INDICATION: Preop nasal surgery PA and lateral chest Heart size and pulmonary vascularity are normal. Lungs are clear. There are no effusions or pneumothoraces. IMPRESSION: Negative chest. Dictated by: Dictated on workstation # [id number]
== END 2018-11-19 15:05 | disposition home or self-care (01) ==
LOC: PREOP 12:02
PROVIDERS: ATTEND Otolaryngology Otolaryngology/Facial Plastic Surgery
DX: Z01.810 Encounter for preprocedural cardiovascular examination (principal); Z01.811 Encounter for preprocedural respiratory examination; Z01.812 Encounter for preprocedural laboratory examination; Z11.2 Encounter for screening for other bacterial diseases; L98.9 Disorder of the skin and subcutaneous tissue, unspecified
CPT/HCPCS: 36415; 71046; 80048; 85025; 87081

== ENCOUNTER 2018-11-20 14:09 | Outpatient (RCR) | payer MEDICARE, OTHER ==
[~2018-11-20 14:09] MED LIST changes: +ASPI325T32 PO; +ATEN50TA PO; +OMEP20CA12 PO; +TEST200V21 IM
[2018-11-28] MEDS ORDERED: ACHD5005 PO (11:38)
[2018-11-28] MEDS ORDERED: MUPI1OIN6 TP (11:38)
== END 2018-12-08 11:45 | disposition home or self-care (01) ==
PROVIDERS: ATTEND Otolaryngology Otolaryngology/Facial Plastic Surgery
DX: R53.1 Weakness (principal); R26.9 Unspecified abnormalities of gait and mobility

== ENCOUNTER 2018-11-28 07:16 | Day surgery (SDC) | payer MEDICARE, OTHER ==
[~2018-11-28] VITALS: Ht 180.3 cm; Wt 67.8 kg
[2018-11-28] MEDS ORDERED: LACTATED RINGERS 1,000 ML IV PRN (07:27)
[2018-11-28 07:43] VITALS: BP 124/65
[2018-11-28] MEDS ORDERED: LIDOCAINE/EPI 1%-1:100,000 (XYLOCAINE) 20ML ONE ×2 (07:49→10:45)
[2018-11-28] MEDS ORDERED: SEVOFLURANE (ULTANE) 15 ML INHAL SOLN ONE ×3 (08:06→09:06)
[2018-11-28] MEDS ORDERED: ONDANSETRON 4 MG/2 ML (SDV) Z0FRAN ONE (08:06)
[2018-11-28] MEDS ORDERED: fentaNYL INJECTION 100 MCG/2 ML AMP ONE (08:06)
[2018-11-28] MEDS ORDERED: LIDOCAINE PF 2% 5 ML (XYLOCAINE) VIAL ONE (08:06)
[2018-11-28] MEDS ORDERED: proPOfol 200 MG/20 ML (DIPRIVAN) VIAL IV ONE (08:06)
--- NOTE | 2018-11-28 08:38 | Progress Note-Pre Operative ---
Pre-Operative Progress Note H&P Reviewed The H&P was reviewed, patient examined and no changes noted. Date Seen by Provider: Nov 28, 2018 Time Seen by Provider: 08: Date H&P Reviewed: Nov 28, 2018 Time H&P Reviewed: :30 Pre-Operative Diagnosis: Right Upper NAsal Lesion JIGNESH CHEN MD Nov 28, 2018 08:38
[2018-11-28] MEDS ORDERED: MUPIROCIN 2% OINT 22 GM (BACTROBAN) TUBE ONE (09:25)
[2018-11-28] MEDS ORDERED: HYDROcodone/APAP 5 MG/325 MG (LORTAB) TAB PO PRN (09:30)
[2018-11-28] MEDS ORDERED: ACETAMINOPHEN 325 MG TABLET PO PRN (09:30)
--- NOTE | 2018-11-28 09:30 | Progress Note-Post Operative ---
Post-Operative Progess Note Surgeon (s)/Paper Tube Machine Operator (s) Surgeon JIGNESH CHEN MD Paper Tube Machine Operator n/a Pre-Operative Diagnosis Right Upper NAsal Lesion Post-Operative Diagnosis same Post-Op Procedure Note Date of Procedure: Nov 28, 2018 Name of Procedure Performed: Excision of Right Medial [place]hal Lesion with REconstruction Description & Findings Description and Findings: n/a Anesthesia Type lma Estimated Blood Loss minimal Packing none. Specimen(s) collected/removed right medial canthal lesion-squamous cell with clear margins JIGNESH CHEN MD Nov 28, 2018 09:30
[2018-11-28 11:00] VITALS: BP 175/77
[2018-11-28] MEDS ORDERED: RELABEL FOR HOME USE MC SCH (11:15)
[2018-11-28 11:30] VITALS: BP 162/69
[2018-11-28] MEDS ORDERED: MUPI1OIN6 TP (11:38)
[2018-11-28] MEDS ORDERED: ACHD5005 PO (11:38)
--- NOTE | 2018-11-28 11:50 | Anesthesia-General Post-Op ---
General Patient Condition Mental Status/LOC: Same as Preop Cardiovascular: Satisfactory Nausea/Vomiting: Absent Respiratory: Satisfactory Pain: Controlled Complications: Absent Post Op Complications Complications None Follow Up Care/Instructions Patient Instructions None needed. Anesthesia/Patient Condition Patient Condition Patient is doing well, no complaints, stable vital signs, no apparent adverse anesthesia problems. No complications reported per nursing. SYLVAIN SLOAN CRNA Nov 28, 2018 11:50
[2018-11-28 12:00] VITALS: BP 150/72
[2018-11-28] MEDS ORDERED: MUPIROCIN 2% OINT 22 GM (BACTROBAN) TUBE TOP SCH ×2 (12:30→21:00)
[2018-11-28 12:50] VITALS: BP 162/69
== END 2018-11-28 12:50 | disposition home or self-care (01) ==
LOC: SDC 07:16
PROVIDERS: ATTEND Otolaryngology Otolaryngology/Facial Plastic Surgery
DX: C44.1221 Squamous cell carcinoma of skin of right upper eyelid, including canthus (principal); I25.10 Atherosclerotic heart disease of native coronary artery without angina pectoris; I10 Essential (primary) hypertension; E11.40 Type 2 diabetes mellitus with diabetic neuropathy, unspecified; J44.9 Chronic obstructive pulmonary disease, unspecified; K21.9 Gastro-esophageal reflux disease without esophagitis; Z87.891 Personal history of nicotine dependence; Z95.5 Presence of coronary angioplasty implant and graft; Z79.4 Long term (current) use of insulin; Z79.82 Long term (current) use of aspirin; Z79.899 Other long term (current) drug therapy
CPT/HCPCS: 82962

== ENCOUNTER → 2019-03-04 | Outpatient (CLI) | payer MEDICARE, OTHER ==
[~2019-03-04] MED LIST changes: +MUPI1OIN6 TP
--- NOTE | 2019-03-04 12:31 | Diagnostic Imaging Report ---
PA and lateral chest at 1043 hours. INDICATION: COPD. FINDINGS: Heart size is within normal limits and stable when compared to 11/19/2018. The lungs remain generally clear. There is still no sign of failure, pneumonia or pleural effusion to indicate an acute abnormality. The mediastinum is now widened. The osseous structures are intact. IMPRESSION: There is no evidence for an acute cardiopulmonary abnormality. Dictated by: Dictated on workstation # [id number]
== END ==
LOC: RAD 10:27
PROVIDERS: ATTEND Nurse Practitioner Family
DX: J44.9 Chronic obstructive pulmonary disease, unspecified (principal)
CPT/HCPCS: 71046

== ENCOUNTER → 2019-08-03 | Outpatient (CLI) | payer MEDICARE, OTHER ==
[~2019-08-03] MED LIST changes: -OMEP20CA12 PO; +OMEP20CA13 PO
--- NOTE | 2019-08-03 15:37 | Diagnostic Imaging Report ---
INDICATION: COPD. Weakness. COMPARISON: 03/04/2019. FINDINGS: Frontal and lateral radiographic views of the chest were obtained and show interval development of mass-like rounded opacity within the lateral left lower lobe measuring approximately 3.2 cm in diameter. There is also hazy increased opacity about the right lower lung, best visualized on the frontal view. No large effusion or pneumothorax is seen. There is calcified aortic atherosclerosis. Osseous structures show no gross acute abnormalities. IMPRESSION: 1. New mass-like opacity in the left lower lung. Although findings could be on the basis of rounded atelectasis or rounded pneumonia, correlation with CT is recommended, as true soft tissue mass cannot be excluded. 2. Interval development of hazy alveolar opacification about the right lower lung as well. This, however, has an appearance more suggestive of underlying infiltrate, but could be further characterized with CT as well. Clinical correlation is advised. Dictated by: Dictated on workstation # [id number]
== END ==
LOC: LAB 14:57
PROVIDERS: ATTEND Nurse Practitioner Family
DX: J44.9 Chronic obstructive pulmonary disease, unspecified (principal); R53.1 Weakness; R91.8 Other nonspecific abnormal finding of lung field
CPT/HCPCS: 71046

== ENCOUNTER → 2019-08-07 | Outpatient (CLI) | payer MEDICARE, OTHER ==
[~2019-08-07] MED LIST changes: +HOLD METFORMIN - RECEIVED CONTRAST 20 ML VIAL IV SCH; +IOHEXOL 350 MG/ML 100 ML (OMNIPAQUE 350) VIAL IV ONE; +NS 100 ML (IVPB) BAG IV ONE
--- NOTE | 2019-08-07 10:05 | Diagnostic Imaging Report ---
EXAMINATION: CT Chest with intravenous contrast. TECHNIQUE: Multiple contiguous axial images were obtained through the chest after the uneventful administration of intravenous contrast. All CT scans use one or more of the following dose optimizing techniques: automated exposure control, MA and/or KvP adjustment based on a patient size and exam type, or iterative reconstruction. HISTORY: Abnormal chest radiograph COMPARISON: Radiograph dated 08/03/[address] dated 05/10/2017. FINDINGS: Scarring in the left lower lobe has increased compared to prior CT in 2017. Component of the increase may also represent acute infectious process as there is areas of groundglass and septal line thickening associated with this abnormality. No discrete mass is seen. The abnormality of the right lung base on the prior radiograph represents areas of nodularity and groundglass in keeping with an acute infectious process. This is associated with mucus plugging and bronchial wall thickening. Heart size is normal. No pericardial effusion. Aorta is normal in caliber. There is no axillary or supraclavicular lymphadenopathy. There is no mediastinal lymphadenopathy. There are severe coronary artery calcifications. There is extensive ulcerated plaque in the abdominal aorta. Gallbladder is absent. There are no suspicious osseus lesions. IMPRESSION: 1. Radiographic abnormalities correspond to areas of groundglass, septal line thickening, bronchial wall thickening and mucous plugging suggestive of an acute endobronchial infectious process. Portion of the left lower lobe process also represents scarring as it was present on prior exam in 2017. 2. No lung masses seen, however, follow-up to radiographic resolution is recommended. Dictated by: Dictated on workstation # [id number]
== END ==
LOC: RAD 08:11
PROVIDERS: ATTEND Nurse Practitioner Family
DX: Z09 Encounter for follow-up examination after completed treatment for conditions other than malignant neoplasm (principal); R93.1 Abnormal findings on diagnostic imaging of heart and coronary circulation
CPT/HCPCS: 71260

== ENCOUNTER → 2019-08-25 | Outpatient (CLI) | payer MEDICARE, OTHER ==
[~2019-08-25] MED LIST changes: -HOLD METFORMIN - RECEIVED CONTRAST 20 ML VIAL IV SCH; -IOHEXOL 350 MG/ML 100 ML (OMNIPAQUE 350) VIAL IV ONE; -NS 100 ML (IVPB) BAG IV ONE; +OMEP-280 PO; -OMEP20CA13 PO; +SIMV40TA25 PO; -TRAM50TA2 PO; +TRM50T PO
--- NOTE | 2019-08-25 16:17 | Diagnostic Imaging Report ---
HISTORY: Pneumonia. COMPARISON: 08/03/2019 TECHNIQUE: Two views of the chest. FINDINGS: Airspace opacities in the lung bases appear improved compared to 08/03/2019, however mild residual remains. No pleural effusion or pneumothorax is seen. The cardiac silhouette is normal in size. There is aortic atherosclerosis. Multilevel degenerative changes are seen in the thoracic spine. There are moderate degenerative changes in the bilateral AC joints. IMPRESSION: 1. Improving bibasilar opacities with mild residual, left greater than right. Recommend follow-up in one month. Dictated by: Dictated on workstation # [id number]
== END ==
LOC: RAD 15:18
PROVIDERS: ATTEND Nurse Practitioner Family
DX: J18.9 Pneumonia, unspecified organism (principal)
CPT/HCPCS: 71046

== ENCOUNTER → 2019-09-16 | Outpatient (CLI) | payer MEDICARE, OTHER ==
--- NOTE | 2019-09-16 16:32 | Diagnostic Imaging Report ---
CLINICAL INDICATION: Follow-up pneumonia. EXAM: Chest x-ray PA and lateral views. COMPARISONS: Chest x-ray dated 08/25/2019. FINDINGS: There is interval slight improved aeration of the periphery of the left lung base with small residual infiltrate remaining. There is minimal right lung base atelectasis or scarring. Remaining lungs are clear. Pulmonary vasculature and cardiac silhouette is within normal limits. There are degenerative spurs involving the thoracic spine. IMPRESSION: There is a small left lung base infiltrate which has minimally improved. Follow up chest x-ray in 4 weeks is suggested to evaluate for interval resolution of this finding. Dictated by: Dictated on workstation # [id number]
== END ==
LOC: RAD 15:59
PROVIDERS: ATTEND Nurse Practitioner Family
DX: J18.9 Pneumonia, unspecified organism (principal)
CPT/HCPCS: 71046

== ENCOUNTER → 2019-10-15 | Outpatient (CLI) | payer MEDICARE, OTHER ==
[~2019-10-15] MED LIST changes: -HYDR-3812 PO; -OMEP-280 PO; +OMEP20CA18 PO
--- NOTE | 2019-10-15 17:07 | Diagnostic Imaging Report ---
INDICATION: Pneumonia. Comparison made with prior examination from 09/16/2019. FINDINGS: Heart size is normal. There is some left basilar atelectasis and/or pneumonitis. There is no pleural effusion or pneumothorax. Mediastinum is unremarkable. IMPRESSION: Patchy left basilar atelectasis and/or pneumonitis. Dictated by: Dictated on workstation # [id number]
== END ==
LOC: RAD 15:45
PROVIDERS: ATTEND Nurse Practitioner Family
DX: J18.9 Pneumonia, unspecified organism (principal); J98.11 Atelectasis
CPT/HCPCS: 71046

== ENCOUNTER → 2019-11-27 | Outpatient (CLI) | payer MEDICARE, OTHER ==
--- NOTE | 2019-11-27 17:20 | Diagnostic Imaging Report ---
EXAMINATION: Chest, two-view. HISTORY: History of atrial fibrillation. Cough. COMPARISON: Chest radiograph on 10/15/2019. FINDINGS: The lung volumes are normal. A small amount of patchy opacities are seen in the lung bases, similar to prior exams. No focal consolidation is seen. No large pleural effusion or pneumothorax is seen. The cardiomediastinal silhouette is normal in size and contour. No acute osseous abnormality is seen. IMPRESSION: Patchy bibasilar opacities, similar to the prior exam and likely representing basilar scarring. No focal consolidation. No pleural effusion. Dictated by: Dictated on workstation # [id number]
== END ==
LOC: CARD 16:16
PROVIDERS: ATTEND Nurse Practitioner Family
DX: I48.91 Unspecified atrial fibrillation (principal); R05 Cough
CPT/HCPCS: 71046

== ENCOUNTER → 2020-02-09 | Outpatient (CLI) | payer MEDICARE, OTHER ==
[2020-02-09 16:32] LABS: BASOPHILS % (AUTO) 0 % (0-10); EOSINOPHILS # (AUTO) 0.2 10^3/uL (0.0-0.3); EOSINOPHILS % (AUTO) 3 % (0-10); HEMATOCRIT 36 % (40-54); HEMOGLOBIN 11.7 G/DL (13.3-17.7); LYMPHOCYTES # (AUTO) 2.2 X 10^3 (1.0-4.0); LYMPHOCYTES % (AUTO) 28 % (12-44); MEAN CORPUSCULAR HEMOGLOBIN 35 PG (25-34); MEAN CORPUSCULAR HGB CONC 33 G/DL (32-36); MEAN CORPUSCULAR VOLUME 106 FL (80-99); MEAN PLATELET VOLUME 9.3 FL (7.4-10.4); MONOCYTES # (AUTO) 0.5 X 10^3 (0.0-1.0); MONOCYTES % (AUTO) 7 % (0-12); NEUTROPHILS # (AUTO) 4.7 X 10^3 (1.8-7.8); NEUTROPHILS % (AUTO) 62 % (42-75); PLATELET COUNT 206 10^3/uL (130-400); RED CELL DISTRIBUTION WIDTH 14.7 % (10.0-14.5); WHITE BLOOD COUNT 7.6 10^3/uL (4.3-11.0)
[2020-02-09 16:45] LABS: ALBUMIN 3.7 GM/DL (3.2-4.5); CHLORIDE 109 MMOL/L (98-107); POTASSIUM 3.9 MMOL/L (3.6-5.0); SODIUM 143 MMOL/L (135-145)
[2020-02-09 16:46] LABS: CALCIUM 8.9 MG/DL (8.5-10.1)
[2020-02-09 16:47] LABS: GLUCOSE 227 MG/DL (70-105); TOTAL PROTEIN 6.6 GM/DL (6.4-8.2)
[2020-02-09 16:48] LABS: CARBON DIOXIDE 22 MMOL/L (21-32)
[2020-02-09 16:49] LABS: BILIRUBIN,TOTAL 0.3 MG/DL (0.1-1.0)
[2020-02-09 16:51] LABS: ALKALINE PHOSPHATASE 82 U/L (40-136); GFR ESTIMATED > 60
[2020-02-09 16:52] LABS: BUN/CREATININE RATIO 13
[2020-02-09 16:54] LABS: ALANINE AMINOTRANSFERASE 24 U/L (0-55)
== END ==
LOC: LAB 16:13
PROVIDERS: ATTEND Nurse Practitioner Family
DX: K92.1 Melena (principal); R53.83 Other fatigue; R53.1 Weakness
CPT/HCPCS: 36415; 80053; 85025

== ENCOUNTER 2020-03-25 05:30 | Outpatient (RCR) | payer MEDICARE, OTHER ==
[~2020-03-25] VITALS: Ht 180 cm; Wt 69.5 kg
[~2020-03-25 05:30] MED LIST changes: +HYDR-3812 PO; +INSU100I23 SQ
== END 2020-03-25 09:30 | disposition home or self-care (01) ==
LOC: PREOP 05:30
PROVIDERS: ATTEND Surgery
DX: Z01.818 Encounter for other preprocedural examination (principal); Z01.812 Encounter for preprocedural laboratory examination; K21.9 Gastro-esophageal reflux disease without esophagitis; K92.1 Melena; Z20.828 Contact with and (suspected) exposure to other viral communicable diseases
CPT/HCPCS: 87635

== ENCOUNTER 2020-03-29 07:06 | Day surgery (SDC) | payer MEDICARE, OTHER ==
[~2020-03-29] VITALS: Ht 180 cm; Wt 69.5 kg
[2020-03-29] MEDS ORDERED: LACTATED RINGERS 1,000 ML IV ONE (07:13)
--- OUTSIDE RECORDS SUMMARY | 2020-03-29 07:25 | XMS REPORT | CCD ---
Author Author Dick Espinal Organization Violeta Ash MD, [facility] Address [address] [place] [address] Phone Care Team Providers Care German Teacher Name Role Phone PP Unavailable CCM Unavailable Summary Purpose Interface Exchange Insurance Providers Payer name Policy type / Coverage type Covered green party ID Effective Begin Date Effective End Date WPS Medicare Part B Medicare Part B [id number] Unknown Unknown [employer] [place] Medicare Part B [id number] Unknown Unknown Family history Father Diagnosis Age At Onset Cancer Unknown Mother Diagnosis Age At Onset Cancer Unknown Social History Social History Element Codes Description Effective Dates Number of cigarettes/day Unknown 20 (One Pack) 03/03/2019 Marital status Unknown M arried 12/09/2014 Employment Unknown Retir ed 12/09/[address]: 75363635 Currently smokes tobacco 12/09/2014 Number of years using tobacco Unknown > 50 12/09/[address]: 038940285 Never drinks alcohol 12/09/2014 Allergies, Adverse Reactions, Alerts Substance Reaction Codes Entered Date Inactivated Date Status * OTHER REACTION - S EE ANSWER BOX ceftin- c-dif Unknown No Inactive Date Active * NO KNOWN FOOD TAYLOR RGIES Unknown 12/09/2014 No Inactive Date Active Past Medical History Illness Codes Condition Status Onset Date Resolved Date Testicular dysfuncti on, unspecified ICD-9: 257.9 ICD-10: E29.9 Active 01/17/2018 Unknown Anemia, unspecified ICD- 9: 285.9 ICD-10: D64.9 Active 05/22/2016 Unknown Abnormal weight loss ICD-9: 783.21 ICD-10: R63.4 Active 02/20/2018 Unknown Chronic obstructive pulmonary disease, unspecified ICD-9: 496 ICD-10: J44.9 Active 05/21/2016 Unknown Mixed hyperlipidemia ICD-9: 272.2 ICD-10: E78.2 Active 08/22/2016 Unknown Type 2 diabetes kadi itus with hyperglycemia ICD-9: 250.02 ICD-10: E11.65 Active 02/20/2018 Unknown Vitamin D deficiency , unspecified ICD-9: 268.9 ICD-10: E55.9 Active 08/22/2016 Unknown Essential (primary) hypertension ICD-9: 401.9 ICD-10: I10 Active 08/22/2016 Unknown Other insomnia ICD-9: 327.09 ICD-10: G47.09 Active 12/02/2018 Unknown Low back pain ICD-9: 724.2 ICD-10: M54.5 Active 10/02/2017 Unknown Orthostatic hypotension ICD-9: 458.0 ICD-10: I95.1 Active 10/17/2018 Unknown Unsteadiness on feet ICD-9: 781.2 ICD-10: R26.81 Active 10/17/2018 Unknown Encounter for genera l adult medical examination with abnormal findings ICD-9: V70.0 ICD-10: Z00.01 Active 06/30/2018 Unknown Cellulitis of face ICD- 9: 682.0 ICD-10: L03.211 Active 06/06/2018 Unknown Encounter for immuni zation ICD-9: V04.81 ICD-10: Z23 Active 05/21/2016 Unknown Type 2 diabetes kadi itus without complications ICD-9: 250.00 ICD-10: E11.9 Active 02/20/2018 Unknown Dysuria ICD-9: 788.1 ICD-10: R30.0 Active 02/23/2016 Unknown Chronic obstructive pulmonary disease with (acute) exacerbation ICD-9: 491.21 ICD-10: J44.1 Active 01/30/2018 Unknown Insect bite (nonveno mous), left lower leg, initial encounter ICD-9: 916.4 ICD-10: S80.862A Active 01/14/2018 Unknown Other fatigue ICD-9: 780.79 ICD-10: R53.83 Active 01/13/2018 Unknown Type 2 diabetes kadi itus with hyperglycemia ICD-9: 250.00 ICD-10: E11.65 Active 08/22/2016 Unknown Abdominal distension (gaseous) ICD-9: 787.3 ICD-10: R14.0 Active 11/19/2017 Unknown Drug induced constip ation ICD-9: 564.09 ICD-10: K59.03 Active 11/19/2017 Unknown Encounter for immuni zation ICD-9: V06.6 ICD-10: Z23 Active 04/25/2017 Unknown Nicotine dependence, unspecified, uncomplicated ICD-9: 305.1 ICD-10: F17.200 Active 04/25/2017 Unknown Gastro-esophageal re flux disease without esophagitis ICD-9: 530.81 ICD-10: K21.9 Active 01/26/2016 Unknown Slow transit constip ation ICD-9: 564.01 ICD-10: K59.01 Active 01/26/2016 Unknown Tobacco use ICD-9: 305.1 ICD-10: Z72.0 Active 11/24/2015 Unknown DYSURIA ICD-9: 788.1 Active 05/08/2015 Unknow n Cough ICD-9: 786.2 Active 05/05/2015 Unknow n DIABETES TYPE II ICD-9: 250.00 Active 12/08/2014 Unknown Muscle ache ICD-9: 729.1 Active 04/24/2015 Unknow n ACUTE URI ICD-9: 465.9 Active 04/11/2015 Unknow n Actinic keratosis ICD-9: 702.0 Active 03/06/2015 Unknown Hypoglycemia ICD-9: 251.2 Active 03/06/2015 Unknown Skin texture changes ICD-9: 782.8 Active 03/06/2015 Unknown Fatigue ICD-9: 780.79 Active 02/16/2015 Unknow n Unsteady gait ICD-9: 781.2 Active 02/16/2015 Unknown Hypertension Unknown Active 12/23/2014 Unknow n ESSENTIAL HYPERTENSION ICD-9: 401.9 Active 12/22/2014 Unknown Impacted cerumen ICD-9: 380.4 Active 12/22/2014 Unknown Diabetes Unknown Active 12/09/2014 Unknow n Osteoarthritis Unknown Active 12/09/2014 Unknow n BPPV (benign paroxys mal positional vertigo) ICD-9: 386.11 Active 12/08/2014 Unknown COPD (chronic obstru ctive pulmonary disease) ICD-9: 496 Active 12/08/2014 Unknown Osteoarthritis ICD-9: 715.90 Active 12/08/2014 Unknown Tobacco abuse ICD-9: 305.1 Active 12/08/2014 Unknown Problems Condition Codes Effectiv e Dates Condition Status Testicular dysfuncti on, unspecified ICD-9: 257.9 ICD-10: E29.9 01/17/2018 Active Anemia, unspecified ICD- 9: 285.9 ICD-10: D64.9 05/22/2016 Active Abnormal weight loss ICD-9: 783.21 ICD-10: R63.4 02/20/2018 Active Chronic obstructive pulmonary disease, unspecified ICD-9: 496 ICD-10: J44.9 05/21/2016 Active Mixed hyperlipidemia ICD-9: 272.2 ICD-10: E78.2 08/22/2016 Active Type 2 diabetes kadi itus with hyperglycemia ICD-9: 250.02 ICD-10: E11.65 02/20/2018 Active Vitamin D deficiency , unspecified ICD-9: 268.9 ICD-10: E55.9 08/22/2016 Active Essential (primary) hypertension ICD-9: 401.9 ICD-10: I10 08/22/2016 Active Other insomnia ICD-9: 327.09 ICD-10: G47.09 12/02/2018 Active Low back pain ICD-9: 724.2 ICD-10: M54.5 10/02/2017 Active Orthostatic hypotension ICD-9: 458.0 ICD-10: I95.1 10/17/2018 Active Unsteadiness on feet ICD-9: 781.2 ICD-10: R26.81 10/17/2018 Active Encounter for genera l adult medical examination with abnormal findings ICD-9: V70.0 ICD-10: Z00.01 06/30/2018 Active Cellulitis of face ICD- 9: 682.0 ICD-10: L03.211 06/06/2018 Active Encounter for immuni zation ICD-9: V04.81 ICD-10: Z23 05/21/2016 Active Type 2 diabetes kadi itus without complications ICD-9: 250.00 ICD-10: E11.9 02/20/2018 Active Dysuria ICD-9: 788.1 ICD-10: R30.0 02/23/2016 Active Chronic obstructive pulmonary disease with (acute) exacerbation ICD-9: 491.21 ICD-10: J44.1 01/30/2018 Active Insect bite (nonveno mous), left lower leg, initial encounter ICD-9: 916.4 ICD-10: S80.862A 01/14/2018 Active Other fatigue ICD-9: 780.79 ICD-10: R53.83 01/13/2018 Active Type 2 diabetes kadi itus with hyperglycemia ICD-9: 250.00 ICD-10: E11.65 08/22/2016 Active Abdominal distension (gaseous) ICD-9: 787.3 ICD-10: R14.0 11/19/2017 Active Drug induced constip ation ICD-9: 564.09 ICD-10: K59.03 11/19/2017 Active Encounter for immuni zation ICD-9: V06.6 ICD-10: Z23 04/25/2017 Active Nicotine dependence, unspecified, uncomplicated ICD-9: 305.1 ICD-10: F17.200 04/25/2017 Active Gastro-esophageal re flux disease without esophagitis ICD-9: 530.81 ICD-10: K21.9 01/26/2016 Active Slow transit constip ation ICD-9: 564.01 ICD-10: K59.01 01/26/2016 Active Tobacco use ICD-9: 305.1 ICD-10: Z72.0 11/24/2015 Active DYSURIA ICD-9: 788.1 05/08/2015 Active Cough ICD-9: 786.2 05/05/2015 Active DIABETES TYPE II ICD-9: 250.00 12/08/2014 Active Muscle ache ICD-9: 729.1 04/24/2015 Active ACUTE URI ICD-9: 465.9 04/11/2015 Active Actinic keratosis ICD-9: 702.0 03/06/2015 Active Hypoglycemia ICD-9: 251.2 03/06/2015 Active Skin texture changes ICD-9: 782.8 03/06/2015 Active Fatigue ICD-9: 780.79 02/16/2015 Active Unsteady gait ICD-9: 781.2 02/16/2015 Active Hypertension Unknown 12/23/2014 Active ESSENTIAL HYPERTENSION ICD-9: 401.9 12/22/2014 Active Impacted cerumen ICD-9: 380.4 12/22/2014 Active Diabetes Unknown 12/09/2014 Active Osteoarthritis Unknown 12/09/2014 Active BPPV (benign paroxys mal positional vertigo) ICD-9: 386.11 12/08/2014 Active COPD (chronic obstru ctive pulmonary disease) ICD-9: 496 12/08/2014 Active Osteoarthritis ICD-9: 715.90 12/08/2014 Active Tobacco abuse ICD-9: 305.1 12/08/2014 Active Medications Medication Codes Instruc tions Start Date Stop Date Sta tus Fill Instructions testosterone cypiona te 200 mg/mL intramuscular oil RxNorm: 9442520 Milliliter(s) IM 04/17/2019 04/17/2019 In active hydrocodone 5 mg-lihn taminophen 325 mg tablet RxNorm: 699822 1 Tablet(s) PO Q6-8H as needed 04/15/2019 05/09/2019 Active testosterone cypiona te 200 mg/mL intramuscular oil RxNorm: 9514510 Milliliter(s) IM 03/31/2019 03/31/2019 In active testosterone cypiona te 200 mg/mL intramuscular oil RxNorm: 7638970 Milliliter(s) IM 03/17/2019 03/17/2019 In active hydrocodone 5 mg-linh taminophen 325 mg tablet RxNorm: 399805 1 Tablet(s) PO Q6-8H as needed 03/17/2019 04/10/2019 Inactive Toujeo SoloStar U-30 0 Insulin 300 unit/mL (1.5 mL) subcutaneous pen RxNorm: 5983923 35 Unit(s) SQ QHS 03/05/2019 07/02/2019 Active Dosage change! testosterone cypiona te 200 mg/mL intramuscular oil RxNorm: 7037094 1/2 Milliliter(s) IM 03/04/2019 03/04/2019 Inactive Toujeo SoloStar U-30 0 Insulin 300 unit/mL (1.5 mL) subcutaneous pen RxNorm: 3954382 30 Unit(s) SQ QHS 03/03/2019 03/04/2019 Inactive Xanax 0.5 mg tablet RxNorm: 919301 Tablet(s) as needed TAKE ONE TABLET BY M OUTH THREE TIMES A DAY 02/19/2019 04/19/2019 Active Xanax 0.5 mg tablet RxNorm: 091012 Tablet(s) TAKE ONE TABLET BY MOUTH THREE TIMES A DAY 02/19/2019 02/18/2019 Inactive hydrocodone 5 mg-linh taminophen 325 mg tablet RxNorm: 279834 1 Tablet(s) PO Q6-8H as needed 02/16/2019 03/12/2019 Inactive testosterone cypiona te 200 mg/mL intramuscular oil RxNorm: 1004912 Milliliter(s) IM 02/16/2019 02/16/2019 In active Protonix 40 mg table t,delayed release RxNorm: 848113 TAKE 1 TABLET BY MOUT H DAILY 02/02/2019 01/27/2020 tive - Ref: [id number] simvastatin 40 mg ta blet RxNorm: 016944 TAKE 1 TABLET BY MOUT H DAILY AT BEDTIME 02/02/2019 01/27/2020 tive - Ref: [id number] testosterone cypiona te 200 mg/mL intramuscular oil RxNorm: 9546928 Milliliter(s) IM 01/30/2019 01/30/2019 In active testosterone cypiona te 200 mg/mL intramuscular oil RxNorm: 2534174 1/2 Milliliter(s) IM [id number] 01/16/2019 05/15/2019 Active testosterone cypiona te 200 mg/mL intramuscular oil RxNorm: 1810256 Milliliter(s) IM 01/16/2019 01/16/2019 In active hydrocodone 5 mg-linh taminophen 325 mg tablet RxNorm: 309652 1 Tablet(s) PO Q6-8H as needed 01/14/2019 02/07/2019 Inactive testosterone cypiona te 200 mg/mL intramuscular oil RxNorm: 5629030 Milliliter(s) IM 01/01/2019 01/01/2019 In active Xanax 0.5 mg tablet RxNorm: 114127 1 Tablet(s) PO TID 12/18/2018 02/14/2019 Inactive testosterone cypiona te 200 mg/mL intramuscular oil RxNorm: 7844714 Milliliter(s) IM 12/17/2018 12/17/2018 In active hydrocodone 5 mg-linh taminophen 325 mg tablet RxNorm: 179754 1 Tablet(s) PO Q6-8H as needed 12/15/2018 01/08/2019 Inactive testosterone cypiona te 200 mg/mL intramuscular oil RxNorm: 9610908 Milliliter(s) IM 12/02/2018 12/02/2018 In active testosterone cypiona te 200 mg/mL intramuscular oil RxNorm: 3890082 Milliliter(s) IM 11/18/2018 11/18/2018 In active hydrocodone 5 mg-linh taminophen 325 mg tablet RxNorm: 887955 1 Tablet(s) PO Q6-8H as needed 11/13/2018 12/07/2018 Inactive testosterone cypiona te 200 mg/mL intramuscular oil RxNorm: 4127429 1/2 Milliliter(s) IM R2cyilu 11/04/2018 01/15/2019 Inactive testosterone cypiona te 200 mg/mL intramuscular oil RxNorm: 8444718 Milliliter(s) IM 11/04/2018 11/04/2018 In active nicotine 21 mg/24 hr daily transdermal patch RxNorm: 506976 1 TD daily 10/31/2018 10/30/2018 In active nicotine 21 mg/24 hr daily transdermal patch RxNorm: 949571 1 TD daily 10/31/2018 11/29/2018 In active meclizine 25 mg tablet RxNorm: 474660 1 Tablet(s) PO Q6 PRN TAKE ONE TABLET BY MOUTH EVERY 6 HOURS NEEDED 10/17/2018 01/14/2019 Inactive hydrocodone 5 mg-linh taminophen 325 mg tablet RxNorm: 921195 1 Tablet(s) PO Q6-8H as needed 10/17/2018 11/10/2018 Inactive metformin 500 mg tablet RxNorm: 652398 Tablet(s) TAKE 1 TABLET BY MOUTH DAILY 10/15/2018 10/09/2019 Ac tive lisinopril 10 mg tablet RxNorm: 840844 TAKE 1 TABLET BY MOUTH TWO TIMES DAILY 10/15/2018 10/09/2019 Ac tive - First Attempt Ref: [id number] testosterone cypiona te 200 mg/mL intramuscular oil RxNorm: 5427494 Milliliter(s) IM 10/14/2018 10/14/2018 In active Xanax 0.5 mg tablet RxNorm: 097654 1 Tablet(s) PO TID 10/03/2018 11/30/2018 Inactive testosterone cypiona te 200 mg/mL intramuscular oil RxNorm: 5659993 1/2 Milliliter(s) IM weekly 10/03/2018 11/03/2018 Inactive testosterone cypiona te 200 mg/mL intramuscular oil RxNorm: 3881309 Milliliter(s) IM 10/03/2018 10/03/2018 In active testosterone cypiona te 200 mg/mL intramuscular oil RxNorm: 9688859 Milliliter(s) IM 09/23/2018 09/23/2018 In active hydrocodone 5 mg-linh taminophen 325 mg tablet RxNorm: 240592 1 Tablet(s) PO Q6-8H as needed 09/22/2018 10/16/2018 Inactive testosterone cypiona te 200 mg/mL intramuscular oil RxNorm: 9554149 1/2 Milliliter(s) IM 09/02/2018 09/02/2018 Inactive testosterone enantha te 200 mg/mL intramuscular oil RxNorm: 597798 Milliliter(s) IM 08/21/2018 08/21/2018 In active hydrocodone 5 mg-linh taminophen 325 mg tablet RxNorm: 914089 1 Tablet(s) PO Q6-8H as needed 08/21/2018 09/14/2018 Inactive testosterone cypiona te 200 mg/mL intramuscular oil RxNorm: 0379350 Milliliter(s) IM 08/08/2018 08/08/2018 In active testosterone cypiona te 200 mg/mL intramuscular oil RxNorm: 0268433 1/2 Milliliter(s) IM 07/28/2018 07/28/2018 Inactive hydrocodone 5 mg-linh taminophen 325 mg tablet RxNorm: 982867 1 Tablet(s) PO Q6-8H as needed 07/21/2018 08/14/2018 Inactive testosterone cypiona te 200 mg/mL intramuscular oil RxNorm: 988555 Milliliter(s) IM 07/16/2018 07/16/2018 In active testosterone cypiona te 200 mg/mL intramuscular oil RxNorm: 726435 Milliliter(s) IM 07/02/2018 07/02/2018 In active Xanax 0.5 mg tablet RxNorm: 252704 1 Tablet(s) PO TID 06/27/2018 08/24/2018 Inactive testosterone cypiona te 200 mg/mL intramuscular oil RxNorm: 797309 Milliliter(s) IM 06/24/2018 06/24/2018 In active hydrocodone 5 mg-linh taminophen 325 mg tablet RxNorm: 601313 1 Tablet(s) PO Q6-8H as needed 06/23/2018 07/17/2018 Inactive testosterone cypiona te 200 mg/mL intramuscular oil RxNorm: 390896 Milliliter(s) IM 06/13/2018 06/13/2018 In active testosterone cypiona te 200 mg/mL intramuscular oil RxNorm: 494605 Milliliter(s) IM 06/05/2018 06/05/2018 In active testosterone cypiona te 200 mg/mL intramuscular oil RxNorm: 6570102 1/2 Milliliter(s) IM weekly 05/30/2018 09/26/2018 Inactive testosterone cypiona te 200 mg/mL intramuscular oil RxNorm: 574011 Milliliter(s) IM 05/30/2018 05/30/2018 In active testosterone cypiona te 200 mg/mL intramuscular oil RxNorm: 851452 Milliliter(s) IM 05/22/2018 05/22/2018 In active hydrocodone 5 mg-linh taminophen 325 mg tablet RxNorm: 440683 1 Tablet(s) PO Q6-8H as needed 05/20/2018 06/13/2018 Inactive testosterone cypiona te 200 mg/mL intramuscular oil RxNorm: 668855 1/2 Milliliter(s) IM 05/12/2018 05/12/2018 Inactive testosterone cypiona te 200 mg/mL intramuscular oil RxNorm: 341439 Milliliter(s) IM 05/02/2018 05/02/2018 In active testosterone cypiona te 200 mg/mL intramuscular oil RxNorm: 740736 1/2 Milliliter(s) IM weekly 04/24/2018 05/29/2018 Inactive testosterone cypiona te 200 mg/mL intramuscular oil RxNorm: 633835 0.5 Milliliter(s) IM 04/24/2018 04/24/2018 Inactive hydrocodone 5 mg-linh taminophen 325 mg tablet RxNorm: 607893 1 Tablet(s) PO Q6-8H as needed 04/22/2018 05/16/2018 Inactive testosterone cypiona te 200 mg/mL intramuscular oil RxNorm: 677191 1/2 Milliliter(s) IM 04/17/2018 04/17/2018 Inactive testosterone cypiona te 200 mg/mL intramuscular oil RxNorm: 512087 1/2 Milliliter(s) IM weekly 04/16/2018 04/23/2018 Inactive Jardiance 10 mg tablet RxNorm: 8079813 1 Tablet(s) PO daily 04/04/2018 12/29/2018 Inactive testosterone cypiona te 200 mg/mL intramuscular oil RxNorm: 774909 1 Milliliter(s) IM monthly 04/04/2018 04/15/2018 Inactive Protonix 40 mg table t,delayed release RxNorm: 432562 1 Tablet(s) PO daily TAKE 1 TABLET BY MOUTH DAILY 04/04/2018 02/01/2019 Inactive - Ref: [id number] hydrocodone 5 mg-linh taminophen 325 mg tablet RxNorm: 369353 1 Tablet(s) PO Q6-8H as needed 03/19/2018 04/12/2018 Inactive Flomax 0.4 mg capsule RxNorm: 330675 1 Capsule(s) PO daily 03/10/2018 03/04/2019 Inactive Urecholine 25 mg tablet RxNorm: 006700 1 Tablet(s) PO BID 03/10/2018 07/07/2018 Inactive ketorolac 60 mg/2 mL intramuscular solution RxNorm: 2942515 Milliliter(s) IM 03/07/2018 03/07/2018 In active metformin 500 mg tablet RxNorm: 005062 Tablet(s) TAKE 1 TABLET BY MOUTH DAILY 02/20/2018 02/13/2019 In active 1 q am and 1/2 tab q pm hydrocodone 5 mg-linh taminophen 325 mg tablet RxNorm: 465772 1 Tablet(s) PO Q6-8H as needed 02/20/2018 03/16/2018 Inactive Kenalog 40 mg/mL bartolome pension for injection RxNorm: 8987720 1.5 Milliliter(s) In j 01/30/2018 01/30/2018 In active hydrocodone 5 mg-linh taminophen 325 mg tablet RxNorm: 310616 1 Tablet(s) PO Q6-8H as needed 01/23/2018 02/16/2018 Inactive Urecholine 25 mg tablet RxNorm: 438142 1 Tablet(s) PO BID 01/22/2018 03/09/2018 Inactive Flomax 0.4 mg capsule RxNorm: 857134 1 Capsule(s) PO daily 01/22/2018 03/09/2018 Inactive Flomax 0.4 mg capsule RxNorm: 127312 1 Capsule(s) PO daily 01/22/2018 01/21/2018 Inactive Urecholine 25 mg tablet RxNorm: 763229 1 Tablet(s) PO BID 01/22/2018 01/21/2018 Inactive testosterone cypiona te 200 mg/mL intramuscular oil RxNorm: 167492 Milliliter(s) IM 01/17/2018 01/17/2018 In active testosterone cypiona te 200 mg/mL intramuscular oil RxNorm: 041950 1 Milliliter(s) IM monthly 01/17/2018 04/03/2018 Inactive doxycycline hyclate 100 mg tablet RxNorm: 156812 1 Tablet(s) PO BID 01/14/2018 01/23/2018 Inactive lisinopril 10 mg tablet RxNorm: 421090 TAKE 1 TABLET BY MOUTH TWO TIMES DAILY 01/14/2018 10/14/2018 In active - First Attempt Ref: [id number] nystatin 100,000 uni t/mL oral suspension RxNorm: 480573 4 Milliliter(s) PO QI D Swish and swallow 01/08/2018 01/07/2018 Inactive nystatin 100,000 uni t/mL oral suspension RxNorm: 261374 4 Milliliter(s) PO QI D Swish and swallow 01/08/2018 01/12/2018 Inactive Xanax 0.5 mg tablet RxNorm: 220406 1 Tablet(s) PO TID 01/08/2018 12/23/2018 Inactive simvastatin 40 mg ta blet RxNorm: 594409 TAKE 1 TABLET BY MOUT H DAILY AT BEDTIME 12/30/2017 12/24/2018 In active - First Attempt Ref: [id number] metformin 500 mg tablet RxNorm: 928519 TAKE 1 TABLET BY MOUTH DAILY 12/30/2017 02/19/2018 Inactive - First Attempt Ref: [id number] hydrocodone 5 mg-linh taminophen 325 mg tablet RxNorm: 192185 1 Tablet(s) PO Q6-8H as needed 12/25/2017 01/18/2018 Inactive Protonix 40 mg table t,delayed release RxNorm: 013955 Tablet(s) TAKE 1 TABL ET BY MOUTH DAILY 11/20/2017 04/03/2018 Inactive - Ref: [id number] Linzess 72 mcg capsule RxNorm: 8055244 1 Capsule(s) PO daily 11/19/2017 No Stop Date Active hydrocodone 5 mg-linh taminophen 325 mg tablet RxNorm: 083545 1 Tablet(s) PO Q6-8H as needed 11/19/2017 12/13/2017 Inactive hydrocodone 5 mg-linh taminophen 325 mg tablet RxNorm: 484276 1 Tablet(s) PO Q6-8H as needed 10/28/2017 11/18/2017 Inactive Xanax 0.5 mg tablet RxNorm: 523479 1 Tablet(s) PO TID 10/25/2017 12/22/2017 Inactive Xanax 0.5 mg tablet RxNorm: 133152 TAKE ONE TABLET BY MOUTH THREE TIMES A D AY 10/24/2017 12/01/2018 In active hydrocodone 5 mg-linh taminophen 325 mg tablet RxNorm: 826342 1 Tablet(s) PO Q6-8H as needed 09/30/2017 10/24/2017 Inactive Protonix 40 mg table t,delayed release RxNorm: 603763 TAKE 1 TABLET BY MOUT H DAILY 09/16/2017 11/19/2017 In active - Ref: [id number] Yovana Perkins 300 unit/mL (1.5 mL) subcutaneous insulin pen RxNorm: 4371750 35 Unit(s) SQ QHS 08/30/2017 03/02/2019 Inactive dosage increase hydrocodone 5 mg-linh taminophen 325 mg tablet RxNorm: 510595 1 Tablet(s) PO Q6-8H as needed 08/28/2017 09/29/2017 Inactive hydrocodone 5 mg-linh taminophen 325 mg tablet RxNorm: 447112 1 Tablet(s) PO Q6-8H as needed 07/23/2017 08/24/2017 Inactive lisinopril 10 mg tablet RxNorm: 158762 1 Tablet(s) PO BID Take 1 tablet by mout h daily 07/23/2017 01/13/2018 Inactive hydrocodone 5 mg-linh taminophen 325 mg tablet RxNorm: 570158 1 Tablet(s) PO Q6-8H as needed 06/27/2017 07/22/2017 Inactive Xanax 0.5 mg tablet RxNorm: 690208 1 Tablet(s) PO TID 06/18/2017 10/25/2017 Inactive hydrocodone 5 mg-linh taminophen 325 mg tablet RxNorm: 363883 1 Tablet(s) PO Q6-8H as needed 05/27/2017 06/26/2017 Inactive Levaquin 500 mg tablet RxNorm: 379670 1 Tablet(s) PO daily 05/24/2017 05/23/2017 Inactive Levaquin 500 mg tablet RxNorm: 345070 1 Tablet(s) PO daily 05/24/2017 05/30/2017 Inactive Protonix 40 mg table t,delayed release RxNorm: 450560 Take 1 tablet by mout h daily 04/29/2017 09/15/2017 In active - Ref: [id number] hydrocodone 5 mg-linh taminophen 325 mg tablet RxNorm: 693243 1 Tablet(s) PO Q6-8H as needed 04/25/2017 05/26/2017 Inactive metformin 500 mg tablet RxNorm: 377008 Take 1 tablet by mouth daily 04/08/2017 12/29/2017 Inactive - First Attempt Ref: [id number] hydrocodone 5 mg-linh taminophen 325 mg tablet RxNorm: 849043 1 Tablet(s) PO Q6-8H as needed 03/27/2017 04/24/2017 Inactive hydrocodone 5 mg-linh taminophen 325 mg tablet RxNorm: 754791 1 Tablet(s) PO Q6-8H as needed 02/25/2017 03/26/2017 Inactive Protonix 40 mg table t,delayed release RxNorm: 132776 Tablet(s) Take 1 tabl et by mouth BID 02/25/2017 04/28/2017 Inactive Protonix 40 mg table t,delayed release RxNorm: 220581 Tablet(s) Take 1 tabl et by mouth BID 02/19/2017 02/18/2017 Inactive Protonix 40 mg table t,delayed release RxNorm: 017242 Tablet(s) Take 1 tabl et by mouth BID 02/19/2017 02/24/2017 Inactive lisinopril 10 mg tablet RxNorm: 685121 Take 1 tablet by mouth daily 01/29/2017 07/22/2017 Inactive - First Attempt Ref: [id number] hydrocodone 5 mg-linh taminophen 325 mg tablet RxNorm: 914534 1 Tablet(s) PO Q6-8H as needed 01/25/2017 02/24/2017 Inactive simvastatin 40 mg ta blet RxNorm: 012153 Tablet(s) Take 1 tabl et by mouth daily at bedtime 01/03/2017 12/28/2017 Inactive lisinopril 10 mg tablet RxNorm: 551040 Tablet(s) Take 1 tablet by mouth daily 01/03/2017 01/28/2017 In active Protonix 40 mg table t,delayed release RxNorm: 034671 Tablet(s) Take 1 tabl et by mouth daily 12/28/2016 02/18/2017 Inactive hydrocodone 5 mg-linh taminophen 325 mg tablet RxNorm: 413118 1 Tablet(s) PO Q6-8H as needed 12/26/2016 01/24/2017 Inactive Xanax 0.5 mg tablet RxNorm: 529075 1 Tablet(s) PO TID 12/12/2016 03/11/2017 Inactive simvastatin 40 mg ta blet RxNorm: 210180 Tablet(s) Take 1 tabl et by mouth daily at bedtime 11/30/2016 01/02/2017 Inactive simvastatin 40 mg ta blet RxNorm: 694557 Take 1 tablet by mout h daily at bedtime 11/29/2016 11/29/2016 In active - First Attempt Ref: [id number] Protonix 40 mg table t,delayed release RxNorm: 679997 Take 1 tablet by mout h daily 11/27/2016 12/27/2016 In active - First Attempt Ref: [id number] hydrocodone 5 mg-linh taminophen 325 mg tablet RxNorm: 406933 1 Tablet(s) PO Q6-8H as needed 11/26/2016 12/25/2016 Inactive hydrocodone 5 mg-linh taminophen 325 mg tablet RxNorm: 442917 1 Tablet(s) PO Q8 as needed 10/24/2016 11/25/2016 Inactive Xanax 0.5 mg tablet RxNorm: 298607 1 Tablet(s) PO TID 10/09/2016 12/25/2016 Inactive hydrocodone 5 mg-linh taminophen 325 mg tablet RxNorm: 008552 1 Tablet(s) PO Q8 as needed 09/27/2016 10/23/2016 Inactive lisinopril 10 mg tablet RxNorm: 118519 Take 1 tablet by mouth daily 09/25/2016 01/02/2017 Inactive - First Attempt Ref: [id number] Vitamin D2 50,000 un it capsule RxNorm: 997397 1 Capsule(s) PO QW 09/06/2016 12/01/2018 Inactive hydrocodone 5 mg-linh taminophen 325 mg tablet RxNorm: 133604 1 Tablet(s) PO Q8 as needed 08/28/2016 09/26/2016 Inactive Toujeo SoloStar 300 unit/mL (1.5 mL) subcutaneous insulin pen RxNorm: 6763620 25 Unit(s) SQ QHS 08/23/2016 08/29/2017 Inactive dosage increase hydrocodone 5 mg-linh taminophen 325 mg tablet RxNorm: 652695 1 Tablet(s) PO Q8 as needed 07/26/2016 08/27/2016 Inactive Protonix 40 mg table t,delayed release RxNorm: 880620 Take 1 tablet by mout h daily 07/24/2016 11/26/2016 In active - First Attempt Ref: [id number] hydrocodone 5 mg-linh taminophen 325 mg tablet RxNorm: 042218 1 Tablet(s) PO Q8 as needed 06/19/2016 07/21/2016 Inactive Toujeo SoloStar 300 unit/mL (1.5 mL) subcutaneous insulin pen RxNorm: 8429320 32 Unit(s) SQ QHS 05/30/2016 08/22/2016 Inactive dosage increase hydrocodone 5 mg-linh taminophen 325 mg tablet RxNorm: 259298 1 Tablet(s) PO Q8 as needed 05/22/2016 06/18/2016 Inactive hydrocodone 5 mg-linh taminophen 325 mg tablet RxNorm: 889816 1 Tablet(s) PO Q8 as needed 04/18/2016 05/17/2016 Inactive Protonix 40 mg table t,delayed release RxNorm: 401087 Take 1 tablet by mout h daily 04/05/2016 07/03/2016 In active - Ref: [id number] metformin 500 mg tablet RxNorm: 724474 Take 1 tablet by mouth daily 04/04/2016 07/02/2016 Inactive - Ref: [id number] Xanax 0.5 mg tablet RxNorm: 726869 1 Tablet(s) PO TID 03/30/2016 09/25/2016 Inactive Xanax 0.5 mg tablet RxNorm: 963621 1 Tablet(s) PO TID 03/23/2016 12/25/2016 Inactive hydrocodone 5 mg-linh taminophen 325 mg tablet RxNorm: 210618 1 Tablet(s) PO Q8 as needed 03/06/2016 04/04/2016 Inactive Cipro 500 mg tablet RxNorm: 356314 1 Tablet(s) PO BID 02/24/2016 03/04/2016 Inactive Miralax 17 gram oral powder packet RxNorm: 877597 1 packet PO every oth er day 01/27/2016 No Stop Date Active hydrocodone 5 mg-linh taminophen 325 mg tablet RxNorm: 194427 1 Tablet(s) PO Q8 as needed 01/27/2016 02/25/2016 Inactive lisinopril 10 mg tablet RxNorm: 615520 1 Tablet(s) PO daily 01/12/2016 09/24/2016 Inactive simvastatin 40 mg ta blet RxNorm: 869661 1 Tablet(s) PO QHS 01/12/2016 11/28/2016 Inactive simvastatin 40 mg ta blet RxNorm: 999302 1 Tablet(s) PO QHS 01/11/2016 01/11/2016 Inactive lisinopril 10 mg tablet RxNorm: 767670 1 Tablet(s) PO daily 01/06/2016 01/11/2016 Inactive simvastatin 40 mg ta blet RxNorm: 982998 1 Tablet(s) PO daily 12/28/2015 01/10/2016 Inactive hydrocodone 5 mg-linh taminophen 325 mg tablet RxNorm: 540554 1 Tablet(s) PO Q8 as needed 12/27/2015 01/26/2016 Inactive Xanax 0.5 mg tablet RxNorm: 925533 1 Tablet(s) PO TID 11/30/2015 03/29/2016 Inactive Toujeo SoloStar 300 unit/mL (1.5 mL) subcutaneous insulin pen RxNorm: 0852460 30 Unit(s) SQ QHS 11/25/2015 05/29/2016 Inactive dosage increase meclizine 25 mg tablet RxNorm: 785497 1 Tablet(s) PO Q6 PRN TAKE ONE TABLET BY MOUTH EVERY 6 HOURS NEEDED 11/25/2015 02/22/2016 Inactive omeprazole 20 mg cap jacquelyn,delayed release RxNorm: 432442 1 Capsule(s) PO daily 10/06/2015 01/26/2016 In active Toujeo SoloStar 300 unit/mL (1.5 mL) subcutaneous insulin pen RxNorm: 2330886 35 Unit(s) SQ QHS 08/02/2015 11/24/2015 Inactive dosage increase Vitamin D2 50,000 un it capsule RxNorm: 178604 1 Capsule(s) PO QW 08/02/2015 09/05/2016 Inactive hydrocodone 5 mg-linh taminophen 325 mg tablet RxNorm: 429599 1 Tablet(s) PO Q8 as needed 07/11/2015 12/26/2015 Inactive Xanax 0.5 mg tablet RxNorm: 897203 1 Tablet(s) PO TID 06/30/2015 06/29/2015 Inactive Xanax 0.5 mg tablet RxNorm: 889085 1 Tablet(s) PO TID 06/30/2015 12/25/2015 Inactive hydrocodone 5 mg-linh taminophen 325 mg tablet RxNorm: 492094 1 Tablet(s) PO Q8 as needed 05/06/2015 07/10/2015 Inactive Symbicort 160 mcg-4. 5 mcg/actuation HFA aerosol inhaler RxNorm: 3596028 INH 04/25/2015 No Stop Date Active Levemir FlexTouch 10 0 unit/mL (3 mL) subcutaneous insulin pen RxNorm: 297507 30 Unit(s) SQ QHS 04/25/2015 11/24/2015 Inactive prednisone 20 mg tablet RxNorm: 973372 1 Tablet(s) PO BID 04/25/2015 04/29/2015 Inactive metformin 500 mg tablet RxNorm: 816774 1 Tablet(s) PO daily 04/25/2015 04/03/2016 Inactive amoxicillin 500 mg c apsule RxNorm: 193827 1 Capsule(s) PO TID 04/14/2015 04/13/2015 Inactive amoxicillin 500 mg c apsule RxNorm: 576737 1 Capsule(s) PO TID a nd recommend probiotic tid (otc) 04/14/2015 04/20/2015 Inactive Kenalog 40 mg/mL bartolome pension for injection RxNorm: 7516778 Milliliter(s) Inj 04/12/2015 04/12/2015 In active hydrocodone 5 mg-linh taminophen 325 mg tablet RxNorm: 292759 1 Tablet(s) PO Q8 as needed 03/30/2015 05/05/2015 Inactive Lantus 100 unit/mL s ubcutaneous solution RxNorm: 511846 25 Unit(s) SQ QPM 03/24/2015 04/25/2015 In active meclizine 25 mg tablet RxNorm: 331840 Tablet(s) TAKE ONE TABLET BY MOUTH EVERY 6 HOURS NEEDED 03/08/2015 04/06/2015 Inactive meclizine 25 mg tablet RxNorm: 278194 TAKE ONE TABLET BY MOUTH EVERY 6 HOURS A S NEEDED 02/25/2015 03/03/2015 Inactive Lantus 100 unit/mL s ubcutaneous solution RxNorm: 917852 20 Unit(s) SQ QPM 02/23/2015 03/23/2015 In active Lantus 100 unit/mL s ubcutaneous solution RxNorm: 920725 25 Unit(s) SQ QPM 02/23/2015 02/22/2015 In active hydrocodone 5 mg-linh taminophen 325 mg tablet RxNorm: 099525 1 Tablet(s) PO Q8 as needed 02/17/2015 03/29/2015 Inactive Xanax 0.5 mg tablet RxNorm: 204654 1 Tablet(s) PO TID 02/03/2015 06/29/2015 Inactive Lantus 100 unit/mL s ubcutaneous solution RxNorm: 624167 20 Unit(s) SQ QPM 12/29/2014 02/22/2015 In active Phenergan 12.5 mg re ctal suppository RxNorm: 909460 1 Suppository RTL Q6 PRN 12/23/2014 No Stop Date Active nausea Kenalog 40 mg/mL bartolome pension for injection RxNorm: 4396906 Milliliter(s) Inj 12/23/2014 12/23/2014 In active prednisone 20 mg tablet RxNorm: 608137 2 Tablet(s) PO daily 12/13/2014 12/17/2014 Inactive prednisone 20 mg tablet RxNorm: 557979 2 Tablet(s) PO daily 12/13/2014 12/12/2014 Inactive meclizine 25 mg tablet RxNorm: 809811 1 Tablet(s) PO Q6 PRN 12/09/2014 02/24/2015 Inactive hydrocodone 5 mg-linh taminophen 325 mg tablet RxNorm: 150356 1 Tablet(s) PO Q8 as needed 12/09/2014 02/16/2015 Inactive Vitamin B-12 1,000 m cg/mL oral drops RxNorm: 0021113 1 Milliliter(s) PO d aily No Start Date Active Alphagan P 0.1 % eye drops RxNorm: 320015 1 Drop(s) OPH BID No Start Date Active aspirin 325 mg table t,delayed release RxNorm: 597893 1 Tablet(s) PO daily No Start Date Active Tricor 145 mg tablet RxNorm: 268290 1 Tablet(s) PO daily No Start Date Active vitamin [id number] B1 oral liquid RxNorm: 1,000 Microgram(s) PO daily No Start Date Active atenolol 50 mg tablet RxNorm: 994419 1 Tablet(s) PO daily No Start Date Active Protonix 40 mg table t,delayed release RxNorm: 014471 1 Tablet(s) PO daily No Start Date 04/04/2016 Inactive glipizide 10 mg tablet RxNorm: 995688 1 Tablet(s) PO BID No Start Date 03/22/2015 Inactive Lantus 100 unit/mL s ubcutaneous solution RxNorm: 983103 15 Unit(s) SQ QPM No Start Date 12/28/2014 Inactive lisinopril 10 mg tablet RxNorm: 168549 1 Tablet(s) PO daily No Start Date 01/05/2016 Inactive Vitamin D2 50,000 un it capsule RxNorm: 052281 1 Capsule(s) PO QW No Start Date 08/01/2015 Inactive Toujeo SoloStar 300 unit/mL (1.5 mL) subcutaneous insulin pen RxNorm: 2006874 30 Unit(s) SQ QHS No Start Date 08/01/2015 Inactive simvastatin 40 mg ta blet RxNorm: 191527 1 Tablet(s) PO daily No Start Date 12/27/2015 Inactive testosterone cypiona te 200 mg/mL intramuscular oil RxNorm: 125335 1 Milliliter(s) IM monthly No Start Date 01/16/2018 Inactive hydrocodone 5 mg-linh taminophen 325 mg tablet RxNorm: 651994 1 Tablet(s) PO Q8 as needed No Start Date 12/08/2014 Inactive metformin 500 mg tablet RxNorm: 035117 1 Tablet(s) PO daily No Start Date 04/24/2015 Inactive omeprazole 20 mg cap jacquelyn,delayed release RxNorm: 900279 1 Capsule(s) PO daily No Start Date 10/05/2015 Inactive Flomax 0.4 mg capsule RxNorm: 828520 1 Capsule(s) PO daily No Start Date 03/23/2015 Inactive Medication Administered Medication Codes Instruc tions Start Date Status testosterone cypionate 200 mg/mL intramuscular oil RxNorm: 7297296 Milliliter 04/17/2019 Active testosterone cypionate 200 mg/mL intramuscular oil RxNorm: 1732314 Milliliter 03/31/2019 No longer Active testosterone cypionate 200 mg/mL intramuscular oil RxNorm: 4153974 Milliliter 03/17/2019 No longer Active testosterone cypionate 200 mg/mL intramuscular oil RxNorm: 9308701 1/2Milliliter 03/04/2019 No longer Active testosterone cypionate 200 mg/mL intramuscular oil RxNorm: 7784198 Milliliter 02/16/2019 No longer Active testosterone cypionate 200 mg/mL intramuscular oil RxNorm: 8049796 Milliliter 01/30/2019 No longer Active testosterone cypionate 200 mg/mL intramuscular oil RxNorm: 0853088 Milliliter 01/16/2019 No longer Active testosterone cypionate 200 mg/mL intramuscular oil RxNorm: 4528091 Milliliter 01/01/2019 No longer Active testosterone cypionate 200 mg/mL intramuscular oil RxNorm: 1020674 Milliliter 12/17/2018 No longer Active testosterone cypionate 200 mg/mL intramuscular oil RxNorm: 8872953 Milliliter 12/02/2018 No longer Active testosterone cypionate 200 mg/mL intramuscular oil RxNorm: 8049055 Milliliter 11/18/2018 No longer Active testosterone cypionate 200 mg/mL intramuscular oil RxNorm: 5320050 Milliliter 11/04/2018 No longer Active testosterone cypionate 200 mg/mL intramuscular oil RxNorm: 7770474 Milliliter 10/14/2018 No longer Active testosterone cypionate 200 mg/mL intramuscular oil RxNorm: 5607410 Milliliter 10/03/2018 No longer Active testosterone cypionate 200 mg/mL intramuscular oil RxNorm: 9839986 Milliliter 09/23/2018 No longer Active testosterone cypionate 200 mg/mL intramuscular oil RxNorm: 1069485 1/2Milliliter 09/02/2018 No longer Active testosterone enanthate 200 mg/mL intramuscular oil RxNorm: 390041 Milliliter 08/21/2018 No longer Active testosterone cypionate 200 mg/mL intramuscular oil RxNorm: 1912814 Milliliter 08/08/2018 No longer Active testosterone cypionate 200 mg/mL intramuscular oil RxNorm: 7012946 /2Milliliter 07/28/2018 No longer Active testosterone cypionate 200 mg/mL intramuscular oil RxNorm: 384803 Milliliter 07/16/2018 No longer Active testosterone cypionate 200 mg/mL intramuscular oil RxNorm: 654606 Milliliter 07/02/2018 No longer Active testosterone cypionate 200 mg/mL intramuscular oil RxNorm: 219241 Milliliter 06/24/2018 No longer Active testosterone cypionate 200 mg/mL intramuscular oil RxNorm: 497421 Milliliter 06/13/2018 No longer Active testosterone cypionate 200 mg/mL intramuscular oil RxNorm: 331763 Milliliter 06/05/2018 No longer Active testosterone cypionate 200 mg/mL intramuscular oil RxNorm: 608810 Milliliter 05/30/2018 No longer Active testosterone cypionate 200 mg/mL intramuscular oil RxNorm: 108172 Milliliter 05/22/2018 No longer Active testosterone cypionate 200 mg/mL intramuscular oil RxNorm: 253946 2Milliliter 05/12/2018 No longer Active testosterone cypionate 200 mg/mL intramuscular oil RxNorm: 478245 Milliliter 05/02/2018 No longer Active testosterone cypionate 200 mg/mL intramuscular oil RxNorm: 260428 0.5Milliliter 04/24/2018 No longer Active testosterone cypionate 200 mg/mL intramuscular oil RxNorm: 064676 /2Milliliter 04/17/2018 No longer Active ketorolac 60 mg/2 mL intramuscular solution RxNorm: 1633823 Milliliter 03/07/2018 No longer Active Kenalog 40 mg/mL suspension for injection RxNorm: 5341318 1.5Milliliter 01/30/2018 No longer Active testosterone cypionate 200 mg/mL intramuscular oil RxNorm: 500103 Milliliter 01/17/2018 No longer Active Kenalog 40 mg/mL suspension for injection RxNorm: 9921789 Milliliter 04/12/2015 No longer Active Kenalog 40 mg/mL suspension for injection RxNorm: 1526646 Milliliter 12/23/2014 No longer Active Immunizations Vaccine Codes Date Status Influenza CVX: 141 06/06 completed Influenza CVX: 141 04/25 completed Pneumococcal (Adult) CVX: 133 04/25/2017 completed Influenza CVX: 141 05/22 completed Assessments Condition Codes Effectiv e Dates Testicular dysfunction, unspecified ICD-10: E29.9 ICD-9: 257.9 04/17/2019 Anemia, unspecified ICD-10: D64.9 ICD-9: 285.9 03/05/2019 Mixed hyperlipidemia ICD-10: E78.2 ICD-9: 272.2 03/03/2019 Chronic obstructive pulmonary disease, unspecified ICD-10: J44.9 ICD-9: 496 03/03/2019 Abnormal weight loss ICD-10: R63.4 ICD-9: 783.21 03/03/2019 Type 2 diabetes mellitus with hyperglycemia ICD-10: E11.65 ICD-9: 250.02 03/03/2019 Other insomnia ICD-10: G47.09 ICD-9: 327.09 12/02/2018 Unsteadiness on feet ICD-10: R26.81 ICD-9: 781.2 10/17/2018 Low back pain ICD-10: M54.5 ICD-9: 724.2 10/17/2018 Orthostatic hypotension ICD-10: I95. 1 ICD-9: 458.0 10/17/2018 Essential (primary) hypertension ICD -10: I10 ICD-9: 401.9 09/02/2018 Vitamin D deficiency, unspecified IC D-10: E55.9 ICD-9: 268.9 09/02/2018 Encounter for general adult medical exam ination with abnormal findings ICD-10: Z00.01 ICD-9: V70.0 06/30/2018 Type 2 diabetes mellitus without complications ICD-10: E11.9 ICD-9: 250.00 06/06/2018 Cellulitis of face ICD-10: L03.211 ICD-9: 682.0 06/06/2018 Encounter for immunization ICD-10: Z 23 ICD-9: V04.81 06/06/2018 Dysuria ICD-10: R30.0 ICD-9: 788.1 03/07/2018 Chronic obstructive pulmonary disease wi th (acute) exacerbation ICD-10: J44.1 ICD-9: 491.21 01/30/2018 Insect bite (nonvenomous), left lower leg, initial enc ounter ICD-10: S80.862A ICD-9: 916.4 01/14/2018 Type 2 diabetes mellitus with hyperglycemia ICD-10: E11.65 ICD-9: 250.00 01/13/2018 Other fatigue ICD-10: R53.83 ICD-9: 780.79 01/13/2018 Abdominal distension (gaseous) ICD-1 0: R14.0 ICD-9: 787.3 11/19/2017 Drug induced constipation ICD-10: K5 9.03 ICD-9: 564.09 11/19/2017 Nicotine dependence, unspecified, uncomplicated ICD-10: F17.200 ICD-9: 305.1 04/25/2017 Encounter for immunization ICD-10: Z 23 ICD-9: V06.6 04/25/2017 Slow transit constipation ICD-10: K5 9.01 ICD-9: 564.01 01/21/2017 Gastro-esophageal reflux disease without esophagitis ICD-10: K21.9 ICD-9: 530.81 01/21/2017 Tobacco use ICD-10: Z72.0 ICD-9: 305.1 11/25/2015 DYSURIA ICD-9: 788.1 COPD (chronic obstructive pulmonary disease) ICD-9: 496 05/06/2015 DIABETES TYPE II ICD-9: 250.00 05/06/2015 Cough ICD-9: 786.2 05/06 ESSENTIAL HYPERTENSION ICD-9: 401.9 05/06/2015 Muscle ache ICD-9: 729.1 04/25/2015 ACTINIC KERATOSIS ICD-9: 702.0 04/12/2015 ACUTE URI ICD-9: 465.9 0 04/12/2015 Skin texture changes ICD-9: 782.8 03/07/2015 Hypoglycemia ICD-9: 251.2 03/07/2015 Fatigue ICD-9: 780.79 Unsteady gait ICD-9: 781.2 02/17/2015 Cerumen impaction ICD-9: 380.4 12/31/2014 BPPV (benign paroxysmal positional vertigo) ICD-9: 386.11 12/23/2014 Osteoarthritis ICD-9: 715.90 12/09/2014 Tobacco abuse ICD-9: 305.1 12/09/2014 Reason For Visit Reason For Visit Effective Dates Notes diabetes mellitus 03/03/2019 diabetes mellitus 12/02/2018 vertigo 10/17/2018 diabetes mellitus 09/02/2018 Annual Medicare Wellness Exam 06/30/2018 diabetes mellitus 06/06/2018 diabetes mellitus 04/04/2018 back pain 03/07/2018 diabetes mellitus 02/20/2018 cough 01/30/2018 skin lesion 01/14/2018 cough 01/13/2018 diabetes mellitus 11/19/2017 chest congestion 10/02/2017 diabetes mellitus 07/23/2017 diabetes mellitus 04/25/2017 diabetes mellitus 02/19/2017 constipation 01/21/2017 ongoing diabetes mellitus 12/20/2016 diabetes mellitus 08/23/2016 diabetes mellitus 05/22/2016 dysuria 02/24/2016 nausea 01/27/2016 medication follow up 11/25/2015 medication follow up 07/28/2015 medication follow up 05/26/2015 diabetes mellitus 05/06/2015 diabetes mellitus 04/25/2015 diabetes mellitus 04/12/2015 diabetes mellitus 03/24/2015 Hospital Follow Up 03/07/2015 near-syncope/dizziness 02/17/2015 vertigo 12/31/2014 dizziness 12/23/2014 dizziness 12/09/2014 Results Observation Observation Code Item Item Code Result Date B12 Rdc100 B12 432.00 pg/ml 03/05/2019 %Hba1C Xgj093 % HbA1c 82862-8 7.9 % 03/04/2019 %Hba1C Dwt793 Gluc Ave 180 mg/dL 03/04/2019 Testosterone Dup214 Testo 142.2 ng/dL 03/04/2019 Cbc With Differential Ord2 WBC 7.85 K/ul 03/04/2019 Cbc With Differential Ord2 RBC 3.60 M/ul 03/04/2019 Cbc With Differential Ord2 HGB 12.1 g/dl 03/04/2019 Cbc With Differential Ord2 HCT 37.0 % 03/04/2019 Cbc With Differential Ord2 Neut% 55.6 % 03/04/2019 Cbc With Differential Ord2 MCV 102.8 fl 03/04/2019 Cbc With Differential Ord2 Lymph% 32.6 % 03/04/2019 Cbc With Differential Ord2 MCH 33.6 pg 03/04/2019 Cbc With Differential Ord2 Rowan% 6.9 % 03/04/2019 Cbc With Differential Ord2 MCHC 32.7 pg 03/04/2019 Cbc With Differential Ord2 Eos% 4.6 % 03/04/2019 Cbc With Differential Ord2 PLT 242 K/ul 03/04/2019 Cbc With Differential Ord2 Baso% 0.3 % 03/04/2019 Cbc With Differential Ord2 RDW 15.0 % 03/04/2019 Cbc With Differential Ord2 Neut ABS# 4.37 K/ul 03/04/2019 Cbc With Differential Ord2 Lymph ABS# 2.56 K/ul 03/04/2019 Cbc With Differential Ord2 Rowan ABS# 0.5 K/ul 03/04/2019 Cbc With Differential Ord2 Eos ABS# 0.4 K/ul 03/04/2019 Cbc With Differential Ord2 Baso ABS# 0.0 K/ul 03/04/2019 Lipid Ord30 CHOL 114 mg/dL 03/04/2019 Lipid Ord30 HDL 25.0 mg/dl 03/04/2019 Lipid Ord30 TRIG 119 mg/dL 03/04/2019 Lipid Ord30 LDL 65 mg/dL 03/04/2019 Lipid Ord30 C/HDL 4.6 Ratio 03/04/2019 Tsh Ord6 TSH (3rd IS) 3.85 uIU/mL 03/04/2019 Comp Metabolic Bmk333 NA 142 mEq/L 03/04/2019 Comp Metabolic Ztz457 K 4.5 mEq/L 03/04/2019 Comp Metabolic Ffs430 CL 105 mEq/L 03/04/2019 Comp Metabolic Xlr670 CO2 30.0 mEq/L 03/04/2019 Comp Metabolic Blu011 AN ION GAP 12 03/04/2019 Comp Metabolic Qdn592 GL UCOSE 92 mg/dL 03/04/2019 Comp Metabolic Qyn637 Cr eat 1.0 mg/dL 03/04/2019 Comp Metabolic Xdt505 eG FR 80 ml/min/1.73m2 03/04 Comp Metabolic Swe548 BUN 20 mg/dL 03/04/2019 Comp Metabolic Rtb079 B/ C Ratio 20.8 Ratio 03/04/2019 Comp Metabolic Yhn527 CA LCIUM 9.0 mg/dL 03/04/2019 Comp Metabolic Aez170 AL K PHOS 67 U/L 03/04/2019 Comp Metabolic Rit835 T(SGOT) 17 U/L 03/04/2019 Comp Metabolic Bsk354 AL T(SGPT) 17 U/L 03/04/2019 Comp Metabolic Fze790 BI LI T 0.4 mg/dL 03/04/2019 Comp Metabolic Sua594 AL BUMIN 3.9 g/dL 03/04/2019 Comp Metabolic Ucv692 TP RO 6.5 g/dL 03/04/2019 Comp Metabolic Gzq098 GL OB 2.6 g/dL 03/04/2019 Comp Metabolic Clw192 A/ G Ratio 1.5 Ratio 03/04/2019 Comp Metabolic Kcx610 Os mo 285 mOsmo 03/04/2019 Cbc With Differential Ord2 WBC 7.12 K/ul 12/02/2018 Cbc With Differential Ord2 RBC 3.53 M/ul 12/02/2018 Cbc With Differential Ord2 HGB 11.8 g/dl 12/02/2018 Cbc With Differential Ord2 HCT 36.0 % 12/02/2018 Cbc With Differential Ord2 Neut% 56.7 % 12/02/2018 Cbc With Differential Ord2 MCV 102.0 fl 12/02/2018 Cbc With Differential Ord2 Lymph% 29.9 % 12/02/2018 Cbc With Differential Ord2 MCH 33.4 pg 12/02/2018 Cbc With Differential Ord2 Rowan% 8.0 % 12/02/2018 Cbc With Differential Ord2 MCHC 32.8 pg 12/02/2018 Cbc With Differential Ord2 Eos% 5.3 % 12/02/2018 Cbc With Differential Ord2 Baso% 0.1 % 12/02/2018 Cbc With Differential Ord2 PLT 209 K/ul 12/02/2018 Cbc With Differential Ord2 RDW 14.7 % 12/02/2018 Cbc With Differential Ord2 Neut ABS# 4.03 K/ul 12/02/2018 Cbc With Differential Ord2 Lymph ABS# 2.13 K/ul 12/02/2018 Cbc With Differential Ord2 Rowan ABS# 0.6 K/ul 12/02/2018 Cbc With Differential Ord2 Eos ABS# 0.4 K/ul 12/02/2018 Cbc With Differential Ord2 Baso ABS# 0.0 K/ul 12/02/2018 Testosterone Yzc070 Testo 213.5 ng/dL 12/02/2018 A1C Frequency Syt145 A1CF 45542-1 [place] [facility] [place] 2018[place]2018 Testosterone Iwz226 Testo 669.0 ng/dL 09/08/2018 %Hba1C Xeg368 % HbA1c 25086-9 7.4 % 09/08/2018 %Hba1C Rpm868 Gluc Ave 166 mg/dL 09/08/2018 Lipid Ord30 CHOL 114 mg/dL 09/08/2018 Lipid Ord30 HDL 28.0 mg/dl 09/08/2018 Lipid Ord30 TRIG 154 mg/dL 09/08/2018 Lipid Ord30 LDL 55 mg/dL 09/08/2018 Lipid Ord30 C/HDL 4.1 Ratio 09/08/2018 Comp Metabolic Pcb049 NA 137 mEq/L 09/08/2018 Comp Metabolic Kin513 K 4.3 mEq/L 09/08/2018 Comp Metabolic Maf939 CL 100 mEq/L 09/08/2018 Comp Metabolic Frq774 CO2 27.0 mEq/L 09/08/2018 Comp Metabolic Maa723 AN ION GAP 14 09/08/2018 Comp Metabolic Qhw693 GL UCOSE 85 mg/dL 09/08/2018 Comp Metabolic Wfj855 Cr eat 1.1 mg/dL 09/08/2018 Comp Metabolic Nei606 eG FR 70 ml/min/1.73m2 09/08 Comp Metabolic Urb576 BUN 11 mg/dL 09/08/2018 Comp Metabolic Kbe039 B/ C Ratio 10.3 Ratio 09/08/2018 Comp Metabolic Vxh380 CA LCIUM 9.2 mg/dL 09/08/2018 Comp Metabolic Hwr887 AL K PHOS 65 U/L 09/08/2018 Comp Metabolic Vyl769 T(SGOT) 16 U/L 09/08/2018 Comp Metabolic Qjt420 AL T(SGPT) 14 U/L 09/08/2018 Comp Metabolic Wjc579 BI LI T 0.6 mg/dL 09/08/2018 Comp Metabolic Yyb390 AL BUMIN 4.0 g/dL 09/08/2018 Comp Metabolic Lwn555 TP RO 6.6 g/dL 09/08/2018 Comp Metabolic Eae390 GL OB 2.6 g/dL 09/08/2018 Comp Metabolic Xvl681 A/ G Ratio 1.6 Ratio 09/08/2018 Comp Metabolic Roq462 Os mo 272 mOsmo 09/08/2018 Vitamin D 25 Oh Ugo0826 VITAMIN D, 25 HYDROXY 37.17 ng/mL 09/08/2018 Cbc With Differential Ord2 WBC 7.43 K/ul 09/08/2018 Cbc With Differential Ord2 RBC 3.78 M/ul 09/08/2018 Cbc With Differential Ord2 HGB 12.6 g/dl 09/08/2018 Cbc With Differential Ord2 HCT 37.0 % 09/08/2018 Cbc With Differential Ord2 Neut% 54.5 % 09/08/2018 Cbc With Differential Ord2 MCV 97.9 fl 09/08/2018 Cbc With Differential Ord2 Lymph% 32.8 % 09/08/2018 Cbc With Differential Ord2 MCH 33.3 pg 09/08/2018 Cbc With Differential Ord2 Rowan% 8.1 % 09/08/2018 Cbc With Differential Ord2 MCHC 34.1 pg 09/08/2018 Cbc With Differential Ord2 Eos% 4.3 % 09/08/2018 Cbc With Differential Ord2 PLT 197 K/ul 09/08/2018 Cbc With Differential Ord2 Baso% 0.3 % 09/08/2018 Cbc With Differential Ord2 RDW 16.0 % 09/08/2018 Cbc With Differential Ord2 Neut ABS# 4.05 K/ul 09/08/2018 Cbc With Differential Ord2 Lymph ABS# 2.44 K/ul 09/08/2018 Cbc With Differential Ord2 Rowan ABS# 0.6 K/ul 09/08/2018 Cbc With Differential Ord2 Eos ABS# 0.3 K/ul 09/08/2018 Cbc With Differential Ord2 Baso ABS# 0.0 K/ul 09/08/2018 Tsh Ord6 TSH (3rd IS) 2.72 uIU/mL 09/08/2018 Comp Metabolic Ech772 NA 139 mEq/L 04/01/2018 Comp Metabolic Ivw917 K 4.2 mEq/L 04/01/2018 Comp Metabolic Eny446 CL 102 mEq/L 04/01/2018 Comp Metabolic Fpa474 CO2 29.0 mEq/L 04/01/2018 Comp Metabolic Zpa237 AN ION GAP 12 04/01/2018 Comp Metabolic Sef607 GL UCOSE 87 mg/dL 04/01/2018 Comp Metabolic Xvn001 Cr eat 1.1 mg/dL 04/01/2018 Comp Metabolic Unj325 eG FR 70 ml/min/1.73m2 04/01 Comp Metabolic Qow465 BUN 21 mg/dL 04/01/2018 Comp Metabolic Epp482 B/ C Ratio 19.4 Ratio 04/01/2018 Comp Metabolic Bgp315 CA LCIUM 9.1 mg/dL 04/01/2018 Comp Metabolic Gdc090 AL K PHOS 60 U/L 04/01/2018 Comp Metabolic Idf547 T(SGOT) 15 U/L 04/01/2018 Comp Metabolic Qvl499 AL T(SGPT) 18 U/L 04/01/2018 Comp Metabolic Ujl992 BI LI T 0.4 mg/dL 04/01/2018 Comp Metabolic Sqs264 AL BUMIN 4.0 g/dL 04/01/2018 Comp Metabolic Uwv282 TP RO 6.5 g/dL 04/01/2018 Comp Metabolic Vvt538 GL OB 2.5 g/dL 04/01/2018 Comp Metabolic Alb647 A/ G Ratio 1.6 Ratio 04/01/2018 Comp Metabolic Vcn484 Os mo 280 mOsmo 04/01/2018 Lipid Ord30 CHOL 122 mg/dL 04/01/2018 Lipid Ord30 HDL 28.0 mg/dl 04/01/2018 Lipid Ord30 TRIG 180 mg/dL 04/01/2018 Lipid Ord30 LDL 58 mg/dL 04/01/2018 Lipid Ord30 C/HDL 4.4 Ratio 04/01/2018 Cbc With Differential Ord2 WBC 9.18 K/ul 04/01/2018 Cbc With Differential Ord2 RBC 3.70 M/ul 04/01/2018 Cbc With Differential Ord2 HGB 12.7 g/dl 04/01/2018 Cbc With Differential Ord2 HCT 37.6 % 04/01/2018 Cbc With Differential Ord2 Neut% 54.0 % 04/01/2018 Cbc With Differential Ord2 MCV 101.6 fl 04/01/2018 Cbc With Differential Ord2 Lymph% 35.4 % 04/01/2018 Cbc With Differential Ord2 MCH 34.3 pg 04/01/2018 Cbc With Differential Ord2 Rowan% 6.0 % 04/01/2018 Cbc With Differential Ord2 MCHC 33.8 pg 04/01/2018 Cbc With Differential Ord2 Eos% 4.5 % 04/01/2018 Cbc With Differential Ord2 PLT 213 K/ul 04/01/2018 Cbc With Differential Ord2 Baso% 0.1 % 04/01/2018 Cbc With Differential Ord2 RDW 13.8 % 04/01/2018 Cbc With Differential Ord2 Neut ABS# 4.96 K/ul 04/01/2018 Cbc With Differential Ord2 Lymph ABS# 3.25 K/ul 04/01/2018 Cbc With Differential Ord2 Rowan ABS# 0.6 K/ul 04/01/2018 Cbc With Differential Ord2 Eos ABS# 0.4 K/ul 04/01/2018 Cbc With Differential Ord2 Baso ABS# 0.0 K/ul 04/01/2018 %Hba1C Gto267 % HbA1c 30968-9 8.0 % 04/01/2018 %Hba1C Rep657 Gluc Ave 183 mg/dL 04/01/2018 Testosterone Smt318 Testo 111.3 ng/dL 04/01/2018 Testosterone Wva634 Testo 135.4 ng/dL 01/14/2018 Cbc With Differential Ord2 WBC 12.03 K/ul 01/14/2018 Cbc With Differential Ord2 RBC 3.58 M/ul 01/14/2018 Cbc With Differential Ord2 HGB 12.9 g/dl 01/14/2018 Cbc With Differential Ord2 HCT 36.4 % 01/14/2018 Cbc With Differential Ord2 Neut% 68.6 % 01/14/2018 Cbc With Differential Ord2 MCV 101.7 fl 01/14/2018 Cbc With Differential Ord2 Lymph% 22.5 % 01/14/2018 Cbc With Differential Ord2 MCH 36.0 pg 01/14/2018 Cbc With Differential Ord2 Rowan% 6.8 % 01/14/2018 Cbc With Differential Ord2 MCHC 35.4 pg 01/14/2018 Cbc With Differential Ord2 Eos% 2.0 % 01/14/2018 Cbc With Differential Ord2 PLT 263 K/ul 01/14/2018 Cbc With Differential Ord2 Baso% 0.1 % 01/14/2018 Cbc With Differential Ord2 RDW 13.3 % 01/14/2018 Cbc With Differential Ord2 Neut ABS# 8.25 K/ul 01/14/2018 Cbc With Differential Ord2 Lymph ABS# 2.71 K/ul 01/14/2018 Cbc With Differential Ord2 Rowan ABS# 0.8 K/ul 01/14/2018 Cbc With Differential Ord2 Eos ABS# 0.2 K/ul 01/14/2018 Cbc With Differential Ord2 Baso ABS# 0.0 K/ul 01/14/2018 Comp Metabolic Owv348 NA 134 mEq/L 11/20/2017 Comp Metabolic Zxw932 K 4.4 mEq/L 11/20/2017 Comp Metabolic Qws667 CL 99 mEq/L 11/20/2017 Comp Metabolic Mqb390 CO2 29.0 mEq/L 11/20/2017 Comp Metabolic Lky446 AN ION GAP 10 11/20/2017 Comp Metabolic Cuh285 GL UCOSE 218 mg/dL 11/20/2017 Comp Metabolic Rfo536 Cr eat 1.0 mg/dL 11/20/2017 Comp Metabolic Jmq167 eG FR 78 ml/min/1.73m2 11/20 Comp Metabolic Vgp351 BUN 13 mg/dL 11/20/2017 Comp Metabolic Qyh745 B/ C Ratio 13.3 Ratio 11/20/2017 Comp Metabolic Ouj742 CA LCIUM 9.0 mg/dL 11/20/2017 Comp Metabolic Oli218 AL K PHOS 71 U/L 11/20/2017 Comp Metabolic Xfk673 T(SGOT) 18 U/L 11/20/2017 Comp Metabolic Ckg601 AL T(SGPT) 17 U/L 11/20/2017 Comp Metabolic Lsj185 BI LI T 0.4 mg/dL 11/20/2017 Comp Metabolic Mmb481 AL BUMIN 4.1 g/dL 11/20/2017 Comp Metabolic Sxe020 TP RO 6.5 g/dL 11/20/2017 Comp Metabolic Ozv082 GL OB 2.4 g/dL 11/20/2017 Comp Metabolic Hrx165 A/ G Ratio 1.8 Ratio 11/20/2017 Comp Metabolic Mba825 Os mo 275 mOsmo 11/20/2017 Cbc With Differential Ord2 WBC 8.14 K/ul 11/20/2017 Cbc With Differential Ord2 RBC 3.38 M/ul 11/20/2017 Cbc With Differential Ord2 HGB 11.9 g/dl 11/20/2017 Cbc With Differential Ord2 HCT 34.9 % 11/20/2017 Cbc With Differential Ord2 Neut% 48.2 % 11/20/2017 Cbc With Differential Ord2 MCV 103.3 fl 11/20/2017 Cbc With Differential Ord2 Lymph% 41.0 % 11/20/2017 Cbc With Differential Ord2 MCH 35.2 pg 11/20/2017 Cbc With Differential Ord2 Rowan% 7.2 % 11/20/2017 Cbc With Differential Ord2 MCHC 34.1 pg 11/20/2017 Cbc With Differential Ord2 Eos% 3.4 % 11/20/2017 Cbc With Differential Ord2 PLT 211 K/ul 11/20/2017 Cbc With Differential Ord2 Baso% 0.2 % 11/20/2017 Cbc With Differential Ord2 RDW 13.7 % 11/20/2017 Cbc With Differential Ord2 Neut ABS# 3.91 K/ul 11/20/2017 Cbc With Differential Ord2 Lymph ABS# 3.34 K/ul 11/20/2017 Cbc With Differential Ord2 Rowan ABS# 0.6 K/ul 11/20/2017 Cbc With Differential Ord2 Eos ABS# 0.3 K/ul 11/20/2017 Cbc With Differential Ord2 Baso ABS# 0.0 K/ul 11/20/2017 Vitamin D 25 Oh Dlp8751 VITAMIN D, 25 HYDROXY 43.72 ng/mL 11/20/2017 %Hba1C Xxp023 % HbA1c 14891-1 7.4 % 11/20/2017 %Hba1C Bbo638 Gluc Ave 166 mg/dL 11/20/2017 %Hba1C Hjl604 % HbA1c 17128-4 7.2 % 08/20/2017 %Hba1C Fds866 Gluc Ave 160 mg/dL 08/20/2017 Lipid Ord30 CHOL 114 mg/dL 08/20/2017 Lipid Ord30 HDL 28.0 mg/dl 08/20/2017 Lipid Ord30 TRIG 153 mg/dL 08/20/2017 Lipid Ord30 LDL 55 mg/dL 08/20/2017 Lipid Ord30 C/HDL 4.1 Ratio 08/20/2017 Cbc With Differential Ord2 WBC 8.32 K/ul 08/20/2017 Cbc With Differential Ord2 RBC 3.52 M/ul 08/20/2017 Cbc With Differential Ord2 HGB 12.2 g/dl 08/20/2017 Cbc With Differential Ord2 HCT 36.2 % 08/20/2017 Cbc With Differential Ord2 Neut% 59.7 % 08/20/2017 Cbc With Differential Ord2 MCV 102.8 fl 08/20/2017 Cbc With Differential Ord2 Lymph% 29.1 % 08/20/2017 Cbc With Differential Ord2 MCH 34.7 pg 08/20/2017 Cbc With Differential Ord2 Rowan% 7.6 % 08/20/2017 Cbc With Differential Ord2 MCHC 33.7 pg 08/20/2017 Cbc With Differential Ord2 Eos% 3.4 % 08/20/2017 Cbc With Differential Ord2 PLT 215 K/ul 08/20/2017 Cbc With Differential Ord2 Baso% 0.2 % 08/20/2017 Cbc With Differential Ord2 RDW 14.0 % 08/20/2017 Cbc With Differential Ord2 Neut ABS# 4.97 K/ul 08/20/2017 Cbc With Differential Ord2 Lymph ABS# 2.42 K/ul 08/20/2017 Cbc With Differential Ord2 Rowan ABS# 0.6 K/ul 08/20/2017 Cbc With Differential Ord2 Eos ABS# 0.3 K/ul 08/20/2017 Cbc With Differential Ord2 Baso ABS# 0.0 K/ul 08/20/2017 Tsh Ord6 hTSH II 2.27 uIU/mL 08/20/2017 Comp Metabolic Osp590 NA 138 mEq/L 08/20/2017 Comp Metabolic Vff989 K 4.3 mEq/L 08/20/2017 Comp Metabolic Vhg006 CL 102 mEq/L 08/20/2017 Comp Metabolic Epb577 CO2 29.0 mEq/L 08/20/2017 Comp Metabolic Ftc683 AN ION GAP 11 08/20/2017 Comp Metabolic Oei012 GL UCOSE 89 mg/dL 08/20/2017 Comp Metabolic Gqi261 Cr eat 1.0 mg/dL 08/20/2017 Comp Metabolic Hud820 eG FR 80 ml/min/1.73m2 08/20 Comp Metabolic Dhj265 BUN 13 mg/dL 08/20/2017 Comp Metabolic Lxa142 B/ C Ratio 13.5 Ratio 08/20/2017 Comp Metabolic Kxn791 CA LCIUM 9.2 mg/dL 08/20/2017 Comp Metabolic Jid107 AL K PHOS 69 U/L 08/20/2017 Comp Metabolic Nof645 T(SGOT) 18 U/L 08/20/2017 Comp Metabolic Cvk952 AL T(SGPT) 19 U/L 08/20/2017 Comp Metabolic Lxt362 BI LI T 0.6 mg/dL 08/20/2017 Comp Metabolic Flg590 AL BUMIN 4.0 g/dL 08/20/2017 Comp Metabolic Lqf054 TP RO 6.6 g/dL 08/20/2017 Comp Metabolic Fgu983 GL OB 2.6 g/dL 08/20/2017 Comp Metabolic Kex284 A/ G Ratio 1.5 Ratio 08/20/2017 Comp Metabolic Ftb739 Os mo 275 mOsmo 08/20/2017 Vitamin D 25 Oh Drn9212 VITAMIN D, 25 HYDROXY 30.96 ng/mL 08/20/2017 B12 Dvg226 B12 >1500.00 pg/ml 02/22/2017 Cbc With Differential Ord2 WBC 8.52 K/ul 02/20/2017 Cbc With Differential Ord2 RBC 3.22 M/ul 02/20/2017 Cbc With Differential Ord2 HGB 11.5 g/dl 02/20/2017 Cbc With Differential Ord2 HCT 34.3 % 02/20/2017 Cbc With Differential Ord2 Neut% 51.3 % 02/20/2017 Cbc With Differential Ord2 MCV 106.5 fl 02/20/2017 Cbc With Differential Ord2 Lymph% 37.4 % 02/20/2017 Cbc With Differential Ord2 MCH 35.7 pg 02/20/2017 Cbc With Differential Ord2 Rowan% 6.3 % 02/20/2017 Cbc With Differential Ord2 MCHC 33.5 pg 02/20/2017 Cbc With Differential Ord2 Eos% 4.6 % 02/20/2017 Cbc With Differential Ord2 PLT 205 K/ul 02/20/2017 Cbc With Differential Ord2 Baso% 0.4 % 02/20/2017 Cbc With Differential Ord2 RDW 14.9 % 02/20/2017 Cbc With Differential Ord2 Neut ABS# 4.37 K/ul 02/20/2017 Cbc With Differential Ord2 Lymph ABS# 3.19 K/ul 02/20/2017 Cbc With Differential Ord2 Rowan ABS# 0.5 K/ul 02/20/2017 Cbc With Differential Ord2 Eos ABS# 0.4 K/ul 02/20/2017 Cbc With Differential Ord2 Baso ABS# 0.0 K/ul 02/20/2017 Comp Metabolic Jja803 NA 138 mEq/L 02/20/2017 Comp Metabolic Ajg891 K 4.5 mEq/L 02/20/2017 Comp Metabolic Ymj751 CL 101 mEq/L 02/20/2017 Comp Metabolic Qtj475 CO2 31.0 mEq/L 02/20/2017 Comp Metabolic Soi223 AN ION GAP 11 02/20/2017 Comp Metabolic Kfn125 GL UCOSE 120 mg/dL 02/20/2017 Comp Metabolic Vre395 Cr eat 0.9 mg/dL 02/20/2017 Comp Metabolic Aqz614 eG FR 83 ml/min/1.73m2 02/20 Comp Metabolic Uvz760 BUN 15 mg/dL 02/20/2017 Comp Metabolic Zxz692 B/ C Ratio 16.1 Ratio 02/20/2017 Comp Metabolic Jqe095 CA LCIUM 9.1 mg/dL 02/20/2017 Comp Metabolic Vsj644 AL K PHOS 67 U/L 02/20/2017 Comp Metabolic Irp224 T(SGOT) 15 U/L 02/20/2017 Comp Metabolic Upc500 AL T(SGPT) 16 U/L 02/20/2017 Comp Metabolic Ykg742 BI LI T 0.5 mg/dL 02/20/2017 Comp Metabolic Ubv652 AL BUMIN 4.0 g/dL 02/20/2017 Comp Metabolic Gez604 TP RO 6.4 g/dL 02/20/2017 Comp Metabolic Zpt011 GL OB 2.4 g/dL 02/20/2017 Comp Metabolic Hbx246 A/ G Ratio 1.7 Ratio 02/20/2017 Comp Metabolic Blr938 Os mo 278 mOsmo 02/20/2017 Tsh Ord6 hTSH II 2.05 uIU/mL 02/20/2017 %Hba1C Vqg459 % HbA1c 42417-6 7.6 % 02/20/2017 %Hba1C Ysy938 Gluc Ave 171 mg/dL 02/20/2017 Vitamin D 25 Oh Ujl7303 VITAMIN D, 25 HYDROXY 44.40 ng/mL 12/21/2016 Comp Metabolic Cnu338 NA 131 mEq/L 12/21/2016 Comp Metabolic Zrw918 K 4.2 mEq/L 12/21/2016 Comp Metabolic Kiw089 CL 97 mEq/L 12/21/2016 Comp Metabolic Sfs439 CO2 27.0 mEq/L 12/21/2016 Comp Metabolic Ukb871 AN ION GAP 11 12/21/2016 Comp Metabolic Ubk511 GL UCOSE 266 mg/dL 12/21/2016 Comp Metabolic Inp944 Cr eat 0.9 mg/dL 12/21/2016 Comp Metabolic Sxk153 eG FR 88 ml/min/1.73m2 12/21 Comp Metabolic Hgk347 BUN 12 mg/dL 12/21/2016 Comp Metabolic Krl912 B/ C Ratio 13.6 Ratio 12/21/2016 Comp Metabolic Vyj105 CA LCIUM 8.6 mg/dL 12/21/2016 Comp Metabolic Blj268 AL K PHOS 69 U/L 12/21/2016 Comp Metabolic Dgi146 T(SGOT) 15 U/L 12/21/2016 Comp Metabolic Fcd223 AL T(SGPT) 14 U/L 12/21/2016 Comp Metabolic Khn365 BI LI T 0.3 mg/dL 12/21/2016 Comp Metabolic Vdd572 AL BUMIN 3.7 g/dL 12/21/2016 Comp Metabolic Bnf118 TP RO 5.9 g/dL 12/21/2016 Comp Metabolic Zro222 GL OB 2.2 g/dL 12/21/2016 Comp Metabolic Wro825 A/ G Ratio 1.7 Ratio 12/21/2016 Comp Metabolic Saj148 Os mo 272 mOsmo 12/21/2016 Cbc With Differential Ord2 WBC 5.19 K/ul 12/21/2016 Cbc With Differential Ord2 RBC 3.27 M/ul 12/21/2016 Cbc With Differential Ord2 HGB 11.3 g/dl 12/21/2016 Cbc With Differential Ord2 HCT 33.0 % 12/21/2016 Cbc With Differential Ord2 Neut% 49.3 % 12/21/2016 Cbc With Differential Ord2 MCV 100.9 fl 12/21/2016 Cbc With Differential Ord2 Lymph% 39.5 % 12/21/2016 Cbc With Differential Ord2 MCH 34.6 pg 12/21/2016 Cbc With Differential Ord2 Rowan% 6.9 % 12/21/2016 Cbc With Differential Ord2 MCHC 34.2 pg 12/21/2016 Cbc With Differential Ord2 Eos% 3.9 % 12/21/2016 Cbc With Differential Ord2 PLT 187 K/ul 12/21/2016 Cbc With Differential Ord2 Baso% 0.4 % 12/21/2016 Cbc With Differential Ord2 RDW 13.1 % 12/21/2016 Cbc With Differential Ord2 Neut ABS# 2.56 K/ul 12/21/2016 Cbc With Differential Ord2 Lymph ABS# 2.05 K/ul 12/21/2016 Cbc With Differential Ord2 Rowan ABS# 0.4 K/ul 12/21/2016 Cbc With Differential Ord2 Eos ABS# 0.2 K/ul 12/21/2016 Cbc With Differential Ord2 Baso ABS# 0.0 K/ul 12/21/2016 Comp Metabolic Air922 NA 138 mEq/L 09/03/2016 Comp Metabolic Hms115 K 4.5 mEq/L 09/03/2016 Comp Metabolic Xlw713 CL 102 mEq/L 09/03/2016 Comp Metabolic Vyl698 CO2 30.0 mEq/L 09/03/2016 Comp Metabolic Kde507 AN ION GAP 11 09/03/2016 Comp Metabolic Aaz951 GL UCOSE 113 mg/dL 09/03/2016 Comp Metabolic Mag665 Cr eat 1.0 mg/dL 09/03/2016 Comp Metabolic Qgi301 eG FR 81 ml/min/1.73m2 09/03 Comp Metabolic Juu943 BUN 10 mg/dL 09/03/2016 Comp Metabolic Sbr375 B/ C Ratio 10.5 Ratio 09/03/2016 Comp Metabolic Qcu648 CA LCIUM 9.1 mg/dL 09/03/2016 Comp Metabolic Npz976 AL K PHOS 71 U/L 09/03/2016 Comp Metabolic Zwu337 T(SGOT) 18 U/L 09/03/2016 Comp Metabolic Jvr544 AL T(SGPT) 17 U/L 09/03/2016 Comp Metabolic Mzk401 BI LI T 0.6 mg/dL 09/03/2016 Comp Metabolic Tza790 AL BUMIN 4.1 g/dL 09/03/2016 Comp Metabolic Dwr479 TP RO 6.4 g/dL 09/03/2016 Comp Metabolic Pbx342 GL OB 2.3 g/dL 09/03/2016 Comp Metabolic Sht003 A/ G Ratio 1.8 Ratio 09/03/2016 Comp Metabolic Jpx727 Os mo 276 mOsmo 09/03/2016 Vitamin D 25 Oh Ytw8276 VITAMIN D, 25 HYDROXY 28.23 ng/mL 09/03/2016 Tsh Ord6 hTSH II 4.12 uIU/mL 09/03/2016 Cbc With Differential Ord2 WBC 8.06 K/ul 09/03/2016 Cbc With Differential Ord2 RBC 3.66 M/ul 09/03/2016 Cbc With Differential Ord2 HGB 12.6 g/dl 09/03/2016 Cbc With Differential Ord2 HCT 37.3 % 09/03/2016 Cbc With Differential Ord2 Neut% 44.6 % 09/03/2016 Cbc With Differential Ord2 MCV 101.9 fl 09/03/2016 Cbc With Differential Ord2 Lymph% 41.4 % 09/03/2016 Cbc With Differential Ord2 MCH 34.4 pg 09/03/2016 Cbc With Differential Ord2 Rowan% 8.9 % 09/03/2016 Cbc With Differential Ord2 MCHC 33.8 pg 09/03/2016 Cbc With Differential Ord2 Eos% 5.0 % 09/03/2016 Cbc With Differential Ord2 PLT 163 K/ul 09/03/2016 Cbc With Differential Ord2 Baso% 0.1 % 09/03/2016 Cbc With Differential Ord2 RDW 13.6 % 09/03/2016 Cbc With Differential Ord2 Neut ABS# 3.59 K/ul 09/03/2016 Cbc With Differential Ord2 Lymph ABS# 3.34 K/ul 09/03/2016 Cbc With Differential Ord2 Rowan ABS# 0.7 K/ul 09/03/2016 Cbc With Differential Ord2 Eos ABS# 0.4 K/ul 09/03/2016 Cbc With Differential Ord2 Baso ABS# 0.0 K/ul 09/03/2016 Lipid Ord30 CHOL 120 mg/dL 09/03/2016 Lipid Ord30 HDL 33.0 mg/dl 09/03/2016 Lipid Ord30 TRIG 161 mg/dL 09/03/2016 Lipid Ord30 LDL 55 mg/dL 09/03/2016 Lipid Ord30 C/HDL 3.6 Ratio 09/03/2016 %Hba1C Cnt710 % HbA1c 20055-4 7.5 % 09/03/2016 %Hba1C Bvc280 Gluc Ave 169 mg/dL 09/03/2016 Tsh Ord6 hTSH II 1.50 uIU/mL 05/23/2016 %Hba1C Mxv564 % HbA1c 62315-1 7.6 % 05/23/2016 %Hba1C Xwl398 Gluc Ave 171 mg/dL 05/23/2016 Comp Metabolic Rod296 NA 135 mEq/L 05/23/2016 Comp Metabolic Ayy203 K 4.4 mEq/L 05/23/2016 Comp Metabolic Dsg442 CL 99 mEq/L 05/23/2016 Comp Metabolic Zle122 CO2 28.0 mEq/L 05/23/2016 Comp Metabolic Xqh991 AN ION GAP 12 05/23/2016 Comp Metabolic Usv392 GL UCOSE 257 mg/dL 05/23/2016 Comp Metabolic Yys251 Cr eat 0.8 mg/dL 05/23/2016 Comp Metabolic Jwn101 eG FR 95 ml/min/1.73m2 05/23 Comp Metabolic Eyh325 BUN 11 mg/dL 05/23/2016 Comp Metabolic Yci909 B/ C Ratio 13.3 Ratio 05/23/2016 Comp Metabolic Ptq112 CA LCIUM 9.0 mg/dL 05/23/2016 Comp Metabolic Cyg054 AL K PHOS 82 U/L 05/23/2016 Comp Metabolic Xxw465 T(SGOT) 21 U/L 05/23/2016 Comp Metabolic Ylr490 AL T(SGPT) 20 U/L 05/23/2016 Comp Metabolic Gmz524 BI LI T 0.3 mg/dL 05/23/2016 Comp Metabolic Ikn441 AL BUMIN 4.0 g/dL 05/23/2016 Comp Metabolic Zfo456 TP RO 6.4 g/dL 05/23/2016 Comp Metabolic Vrm730 GL OB 2.4 g/dL 05/23/2016 Comp Metabolic Lmq641 A/ G Ratio 1.6 Ratio 05/23/2016 Comp Metabolic Wax687 Os mo 278 mOsmo 05/23/2016 Cbc With Differential Ord2 WBC 6.39 K/ul 05/23/2016 Cbc With Differential Ord2 RBC 3.48 M/ul 05/23/2016 Cbc With Differential Ord2 HGB 12.0 g/dl 05/23/2016 Cbc With Differential Ord2 HCT 35.5 % 05/23/2016 Cbc With Differential Ord2 Neut% 52.8 % 05/23/2016 Cbc With Differential Ord2 MCV 102.0 fl 05/23/2016 Cbc With Differential Ord2 Lymph% 37.2 % 05/23/2016 Cbc With Differential Ord2 MCH 34.5 pg 05/23/2016 Cbc With Differential Ord2 Rowan% 6.1 % 05/23/2016 Cbc With Differential Ord2 MCHC 33.8 pg 05/23/2016 Cbc With Differential Ord2 Eos% 3.4 % 05/23/2016 Cbc With Differential Ord2 PLT 192 K/ul 05/23/2016 Cbc With Differential Ord2 Baso% 0.5 % 05/23/2016 Cbc With Differential Ord2 RDW 13.5 % 05/23/2016 Cbc With Differential Ord2 Neut ABS# 3.37 K/ul 05/23/2016 Cbc With Differential Ord2 Lymph ABS# 2.38 K/ul 05/23/2016 Cbc With Differential Ord2 Rowan ABS# 0.4 K/ul 05/23/2016 Cbc With Differential Ord2 Eos ABS# 0.2 K/ul 05/23/2016 Cbc With Differential Ord2 Baso ABS# 0.0 K/ul 05/23/2016 B12 Tgk982 B12 597.00 pg/ml 05/23/2016 Metabolic Ord15 NA 135 mEq/L 01/10/2016 Metabolic Ord15 K 4.5 mEq/L 01/10/2016 Metabolic Ord15 CL 101 mEq/L 01/10/2016 Metabolic Ord15 CO2 29.0 mEq/L 01/10/2016 Metabolic Ord15 GLUCOSE 167 mg/dL 01/10/2016 Metabolic Ord15 BUN 14 mg/dL 01/10/2016 Metabolic Ord15 Creat 0.9 mg/dL 01/10/2016 Metabolic Ord15 B/C Ratio 16.5 Ratio 01/10/2016 Metabolic Ord15 eGFR 92 ml/min/1.73m2 01/10/2016 Metabolic Ord15 Osmo 274 mOsmo 01/10/2016 Metabolic Ord15 ANION GAP 10 01/10/2016 Metabolic Ord15 CALCIUM 9.1 mg/dL 01/10/2016 Tsh Ord6 hTSH II 0.92 uIU/mL 07/29/2015 Vitamin D 25 Oh Pyz0958 VITAMIN D, 25 HYDROXY 26.93 ng/mL 07/29/2015 %Hba1C Rjm852 % HbA1c 95142-1 8.8 % 07/29/2015 %Hba1C Ovr453 Gluc Ave 206 mg/dL 07/29/2015 Cbc With Differential Ord2 WBC 7.0 K/uL 07/29/2015 Cbc With Differential Ord2 LYM 2.9 K/uL 07/29/2015 Cbc With Differential Ord2 LYM% 41.2 % 07/29/2015 Cbc With Differential Ord2 NEUT/GRAN 3.1 K/uL 07/29/2015 Cbc With Differential Ord2 NEUT/GRAN % 43.8 % 07/29/2015 Cbc With Differential Ord2 MID 1.0 K/uL 07/29/2015 Cbc With Differential Ord2 MID% 15.0 % 07/29/2015 Cbc With Differential Ord2 RBC 3.71 M/uL 07/29/2015 Cbc With Differential Ord2 HGB 11.9 g/dL 07/29/2015 Cbc With Differential Ord2 HCT 39.5 % 07/29/2015 Cbc With Differential Ord2 MCV 107 fL 07/29/2015 Cbc With Differential Ord2 MCH 32 pg 07/29/2015 Cbc With Differential Ord2 MCHC 30 g/dL 07/29/2015 Cbc With Differential Ord2 PLT 206 K/uL 07/29/2015 Cbc With Differential Ord2 RDW 14.9 % 07/29/2015 Comp Metabolic Qdx839 NA 138 mEq/L 07/29/2015 Comp Metabolic Fqp662 K 4.4 mEq/L 07/29/2015 Comp Metabolic Fyu148 CL 102 mEq/L 07/29/2015 Comp Metabolic Ioq218 CO2 28.0 mEq/L 07/29/2015 Comp Metabolic Itf244 AN ION GAP 12 07/29/2015 Comp Metabolic Jga866 GL UCOSE 261 mg/dL 07/29/2015 Comp Metabolic Cep103 Cr eat 1.0 mg/dL 07/29/2015 Comp Metabolic Ttj093 eG FR 77 ml/min/1.73m2 07/29 Comp Metabolic Ujc652 BUN 13 mg/dL 07/29/2015 Comp Metabolic Mxn398 B/ C Ratio 13.0 Ratio 07/29/2015 Comp Metabolic Tlc161 CA LCIUM 9.1 mg/dL 07/29/2015 Comp Metabolic Rug088 AL K PHOS 64 U/L 07/29/2015 Comp Metabolic Sjp228 T(SGOT) 20 U/L 07/29/2015 Comp Metabolic Ixf247 AL T(SGPT) 22 U/L 07/29/2015 Comp Metabolic Hwd584 BI LI T 0.4 mg/dL 07/29/2015 Comp Metabolic Cuu747 AL BUMIN 4.0 g/dL 07/29/2015 Comp Metabolic Ymp975 TP RO 6.1 g/dL 07/29/2015 Comp Metabolic Rjd622 GL OB 2.1 g/dL 07/29/2015 Comp Metabolic Dct586 A/ G Ratio 1.9 Ratio 07/29/2015 Comp Metabolic Rrh280 Os mo 285 mOsmo 07/29/2015 Cbc With Differential Ord2 WBC 11.7 K/uL 05/06/2015 Cbc With Differential Ord2 LYM 2.5 K/uL 05/06/2015 Cbc With Differential Ord2 LYM% 21.4 % 05/06/2015 Cbc With Differential Ord2 NEUT/GRAN 8.6 K/uL 05/06/2015 Cbc With Differential Ord2 NEUT/GRAN % 73.5 % 05/06/2015 Cbc With Differential Ord2 MID 0.6 K/uL 05/06/2015 Cbc With Differential Ord2 MID% 5.1 % 05/06/2015 Cbc With Differential Ord2 RBC 3.98 M/uL 05/06/2015 Cbc With Differential Ord2 HGB 13.7 g/dL 05/06/2015 Cbc With Differential Ord2 HCT 41.8 % 05/06/2015 Cbc With Differential Ord2 MCV 105 fL 05/06/2015 Cbc With Differential Ord2 MCH 34 pg 05/06/2015 Cbc With Differential Ord2 MCHC 33 g/dL 05/06/2015 Cbc With Differential Ord2 PLT 188 K/uL 05/06/2015 Cbc With Differential Ord2 RDW 13.1 % 05/06/2015 Comp Metabolic Uln114 NA 134 mEq/L 05/06/2015 Comp Metabolic Bwa998 K 4.4 mEq/L 05/06/2015 Comp Metabolic Ohb642 CL 98 mEq/L 05/06/2015 Comp Metabolic Xvk779 CO2 29.0 mEq/L 05/06/2015 Comp Metabolic Lbw915 AN ION GAP 11 05/06/2015 Comp Metabolic Nay375 GL UCOSE 321 mg/dL 05/06/2015 Comp Metabolic Nef195 Cr eat 1.0 mg/dL 05/06/2015 Comp Metabolic Kar624 eG FR 78 ml/min/1.73m2 05/06 Comp Metabolic Yug094 BUN 20 mg/dL 05/06/2015 Comp Metabolic Yny624 B/ C Ratio 20.4 Ratio 05/06/2015 Comp Metabolic Cbx516 CA LCIUM 9.5 mg/dL 05/06/2015 Comp Metabolic Wpy976 AL K PHOS 62 U/L 05/06/2015 Comp Metabolic Owe230 T(SGOT) 21 U/L 05/06/2015 Comp Metabolic Jfr089 AL T(SGPT) 37 U/L 05/06/2015 Comp Metabolic Muo762 BI LI T 0.4 mg/dL 05/06/2015 Comp Metabolic Xze394 AL BUMIN 3.8 g/dL 05/06/2015 Comp Metabolic Gez704 TP RO 6.1 g/dL 05/06/2015 Comp Metabolic Hen070 GL OB 2.3 g/dL 05/06/2015 Comp Metabolic Pvj239 A/ G Ratio 1.7 Ratio 05/06/2015 Comp Metabolic Qbf562 Os mo 283 mOsmo 05/06/2015 Tsh Ord6 hTSH II 1.65 uIU/mL 02/18/2015 B12 Ctl129 B12 605.00 pg/ml 02/18/2015 %Hba1C Czh739 % HbA1c 17376-1 8.3 % 02/18/2015 %Hba1C Bqv311 Gluc Ave 192 mg/dL 02/18/2015 Cbc With Differential Ord2 WBC 9.3 K/uL 02/17/2015 Cbc With Differential Ord2 LYM 3.4 K/uL 02/17/2015 Cbc With Differential Ord2 LYM% 36.4 % 02/17/2015 Cbc With Differential Ord2 NEUT/GRAN 5.4 K/uL 02/17/2015 Cbc With Differential Ord2 NEUT/GRAN % 58.3 % 02/17/2015 Cbc With Differential Ord2 MID 0.5 K/uL 02/17/2015 Cbc With Differential Ord2 MID% 5.3 % 02/17/2015 Cbc With Differential Ord2 RBC 4.01 M/uL 02/17/2015 Cbc With Differential Ord2 HGB 13.8 g/dL 02/17/2015 Cbc With Differential Ord2 HCT 40.2 % 02/17/2015 Cbc With Differential Ord2 MCV 100 fL 02/17/2015 Cbc With Differential Ord2 MCH 34 pg 02/17/2015 Cbc With Differential Ord2 MCHC 34 g/dL 02/17/2015 Cbc With Differential Ord2 PLT 198 K/uL 02/17/2015 Cbc With Differential Ord2 RDW 13.9 % 02/17/2015 Comp Metabolic Hhw792 NA 137 mEq/L 02/17/2015 Comp Metabolic Czn271 K 4.4 mEq/L 02/17/2015 Comp Metabolic Bgy271 CL 100 mEq/L 02/17/2015 Comp Metabolic Drl801 CO2 31.0 mEq/L 02/17/2015 Comp Metabolic Jql451 AN ION GAP 10 02/17/2015 Comp Metabolic Rzj005 GL UCOSE 307 mg/dL 02/17/2015 Comp Metabolic Ewp805 Cr eat 1.0 mg/dL 02/17/2015 Comp Metabolic Njs812 eG FR 74 ml/min/1.73m2 02/17 Comp Metabolic Kos631 BUN 22 mg/dL 02/17/2015 Comp Metabolic Qyw900 B/ C Ratio 21.4 Ratio 02/17/2015 Comp Metabolic Pku823 CA LCIUM 9.5 mg/dL 02/17/2015 Comp Metabolic Rpi914 AL K PHOS 78 U/L 02/17/2015 Comp Metabolic Ofb242 T(SGOT) 18 U/L 02/17/2015 Comp Metabolic Bsl002 AL T(SGPT) 32 U/L 02/17/2015 Comp Metabolic Zxr731 BI LI T 0.5 mg/dL 02/17/2015 Comp Metabolic Qaq998 AL BUMIN 4.3 g/dL 02/17/2015 Comp Metabolic Ukf392 TP RO 6.7 g/dL 02/17/2015 Comp Metabolic Asq862 GL OB 2.4 g/dL 02/17/2015 Comp Metabolic Eam438 A/ G Ratio 1.8 Ratio 02/17/2015 Comp Metabolic Rrd795 Os mo 289 mOsmo 02/17/2015 Review of Systems System Result Effective Dates Constitutional No recent illness 03/03/2019 Constitutional anorexia 03/03/2019 Constitutional No night sweats 03/03/2019 Constitutional No chills 03/03/2019 Constitutional No diaphoresis 03/03/2019 Constitutional fatigue 0 03/03/2019 Constitutional No fever 03/03/2019 Constitutional No insomnia 03/03/2019 Constitutional No malaise 03/03/2019 Constitutional weight loss 03/03/2019 Constitutional No weight gain 03/03/2019 Eyes No eye discharge Eyes No eye erythema Ears/Nose/Throat/Neck cerumen 03/03/2019 Ears/Nose/Throat/Neck dizziness 03/03/2019 Ears/Nose/Throat/Neck nasal allergies 03/03/2019 Cardiovascular No chest pain/pressure 03/03/2019 Cardiovascular No dyspnea 03/03/2019 Respiratory No productive sputum 03/03/2019 Respiratory No aspiration 03/03/2019 Respiratory No cigarette smoking 03/03/2019 Respiratory cough 2018 Gastrointestinal No abdominal pain 03/03/2019 Gastrointestinal constipation 03/03/2019 Gastrointestinal No diarrhea 03/03/2019 Genitourinary/Nephrology No dysuria 03/03/2019 Musculoskeletal back pain 03/03/2019 Dermatologic No rash Neurologic No alteration of consciousness 03/03/2019 Psychiatric No anxiety 0 03/03/2019 Psychiatric No depression 03/03/2019 Constitutional No recent illness 12/02/2018 Constitutional No anorexia 12/02/2018 Constitutional No night sweats 12/02/2018 Constitutional No chills 12/02/2018 Constitutional No diaphoresis 12/02/2018 Constitutional fatigue 0 12/02/2018 Constitutional No fever 12/02/2018 Constitutional No insomnia 12/02/2018 Constitutional No malaise 12/02/2018 Constitutional No weight loss 12/02/2018 Constitutional No weight gain 12/02/2018 Eyes No eye discharge Eyes No eye erythema Ears/Nose/Throat/Neck cerumen 12/02/2018 Ears/Nose/Throat/Neck dizziness 12/02/2018 Ears/Nose/Throat/Neck nasal allergies 12/02/2018 Cardiovascular No chest pain/pressure 12/02/2018 Cardiovascular No dyspnea 12/02/2018 Respiratory No productive sputum 12/02/2018 Respiratory No aspiration 12/02/2018 Respiratory No cigarette smoking 12/02/2018 Respiratory cough 2018 Gastrointestinal No abdominal pain 12/02/2018 Gastrointestinal constipation 12/02/2018 Gastrointestinal No diarrhea 12/02/2018 Genitourinary/Nephrology No dysuria 12/02/2018 Musculoskeletal back pain 12/02/2018 Dermatologic No rash Neurologic No alteration of consciousness 12/02/2018 Psychiatric No anxiety 0 12/02/2018 Psychiatric No depression 12/02/2018 Constitutional No recent illness 10/17/2018 Constitutional No anorexia 10/17/2018 Constitutional No night sweats 10/17/2018 Constitutional No chills 10/17/2018 Constitutional No diaphoresis 10/17/2018 Constitutional fatigue 0 10/17/2018 Constitutional No fever 10/17/2018 Constitutional No insomnia 10/17/2018 Constitutional No malaise 10/17/2018 Constitutional No weight loss 10/17/2018 Constitutional No weight gain 10/17/2018 Eyes No eye erythema 03/2019 Eyes No eye discharge Ears/Nose/Throat/Neck nasal allergies 10/17/2018 Ears/Nose/Throat/Neck dizziness 10/17/2018 Ears/Nose/Throat/Neck cerumen 10/17/2018 Cardiovascular No chest pain/pressure 10/17/2018 Cardiovascular No dyspnea 10/17/2018 Respiratory No productive sputum 10/17/2018 Respiratory No aspiration 10/17/2018 Respiratory cough 2018 Respiratory cigarette smoking 10/17/2018 Gastrointestinal No abdominal pain 10/17/2018 Gastrointestinal constipation 10/17/2018 Gastrointestinal No diarrhea 10/17/2018 Genitourinary/Nephrology No dysuria 10/17/2018 Musculoskeletal back pain 10/17/2018 Dermatologic No rash 03/2019 Neurologic No alteration of consciousness 10/17/2018 Psychiatric No anxiety 0 10/17/2018 Psychiatric No depression 10/17/2018 Constitutional No recent illness 09/02/2018 Constitutional No anorexia 09/02/2018 Constitutional No night sweats 09/02/2018 Constitutional No chills 09/02/2018 Constitutional No diaphoresis 09/02/2018 Constitutional fatigue 0 09/02/2018 Constitutional No fever 09/02/2018 Constitutional No insomnia 09/02/2018 Constitutional No malaise 09/02/2018 Constitutional weight loss 09/02/2018 Constitutional No weight gain 09/02/2018 Eyes No eye discharge Eyes No eye erythema Ears/Nose/Throat/Neck No dizziness 09/02/2018 Ears/Nose/Throat/Neck No headache 09/02/2018 Cardiovascular No chest pain/pressure 09/02/2018 Respiratory chest congestion 09/02/2018 Respiratory cigarette smoking 09/02/2018 Respiratory cough 2018 Gastrointestinal No abdominal pain 09/02/2018 Gastrointestinal No constipation 09/02/2018 Genitourinary/Nephrology No dysuria 09/02/2018 Musculoskeletal arthralgia(s) 09/02/2018 Dermatologic No rash Dermatologic No sores Neurologic No alteration of consciousness 09/02/2018 Constitutional No recent illness 06/30/2018 Constitutional No anorexia 06/30/2018 Constitutional No night sweats 06/30/2018 Constitutional No chills 06/30/2018 Constitutional No diaphoresis 06/30/2018 Constitutional No fatigue 06/30/2018 Constitutional No fever 06/30/2018 Constitutional No insomnia 06/30/2018 Constitutional No malaise 06/30/2018 Constitutional No weight loss 06/30/2018 Constitutional No obesity 06/30/2018 Eyes No eye discharge Eyes No eye erythema Ears/Nose/Throat/Neck No dizziness 06/30/2018 Ears/Nose/Throat/Neck No headache 06/30/2018 Cardiovascular No chest pain/pressure 06/30/2018 Respiratory No chest congestion 06/30/2018 Respiratory cigarette smoking 06/30/2018 Respiratory No cough Gastrointestinal No abdominal pain 06/30/2018 Gastrointestinal No constipation 06/30/2018 Gastrointestinal No diarrhea 06/30/2018 Genitourinary/Nephrology No dysuria 06/30/2018 Musculoskeletal No joint complaint 06/30/2018 Dermatologic No rash Neurologic No alteration of consciousness 06/30/2018 Psychiatric No anxiety 1 08/30/2017 Endocrine No dry or coarse skin 06/30/2018 Constitutional No recent illness 06/06/2018 Constitutional No anorexia 06/06/2018 Constitutional No night sweats 06/06/2018 Constitutional No chills 06/06/2018 Constitutional No diaphoresis 06/06/2018 Constitutional No fatigue 06/06/2018 Constitutional No fever 06/06/2018 Constitutional No insomnia 06/06/2018 Constitutional No malaise 06/06/2018 Constitutional No weight loss 06/06/2018 Constitutional weight gain 06/06/2018 Eyes No eye discharge Eyes No eye erythema Ears/Nose/Throat/Neck No dizziness 06/06/2018 Ears/Nose/Throat/Neck No headache 06/06/2018 Cardiovascular No chest pain/pressure 06/06/2018 Respiratory No chest congestion 06/06/2018 Respiratory cigarette smoking 06/06/2018 Gastrointestinal No abdominal pain 06/06/2018 Genitourinary/Nephrology No dysuria 06/06/2018 Dermatologic No rash Dermatologic sores 06/06 Neurologic No alteration of consciousness 06/06/2018 Constitutional No obesity 06/06/2018 Respiratory No cough Gastrointestinal No constipation 06/06/2018 Gastrointestinal No diarrhea 06/06/2018 Musculoskeletal No joint complaint 06/06/2018 Psychiatric No anxiety 1 Endocrine No dry or coarse skin 06/06/2018 Constitutional No recent illness 04/04/2018 Constitutional anorexia 04/04/2018 Constitutional No night sweats 04/04/2018 Constitutional No chills 04/04/2018 Constitutional No diaphoresis 04/04/2018 Constitutional fatigue 0 04/04/2018 Constitutional No fever 04/04/2018 Constitutional No insomnia 04/04/2018 Constitutional No malaise 04/04/2018 Constitutional weight loss 04/04/2018 Constitutional No weight gain 04/04/2018 Eyes No eye discharge Eyes No eye erythema Ears/Nose/Throat/Neck No dizziness 04/04/2018 Ears/Nose/Throat/Neck No headache 04/04/2018 Cardiovascular No chest pain/pressure 04/04/2018 Respiratory chest congestion 04/04/2018 Respiratory cigarette smoking 04/04/2018 Respiratory cough 2017 Gastrointestinal No abdominal pain 04/04/2018 Genitourinary/Nephrology No dysuria 04/04/2018 Musculoskeletal arthralgia(s) 04/04/2018 Dermatologic No rash Dermatologic No sores Neurologic No alteration of consciousness 04/04/2018 Gastrointestinal No constipation 04/04/2018 Constitutional No recent illness 03/07/2018 Constitutional No anorexia 03/07/2018 Constitutional No night sweats 03/07/2018 Constitutional No chills 03/07/2018 Constitutional No diaphoresis 03/07/2018 Constitutional fatigue 0 03/07/2018 Constitutional No fever 03/07/2018 Constitutional No insomnia 03/07/2018 Constitutional No weight loss 03/07/2018 Constitutional No weight gain 03/07/2018 Constitutional No malaise 03/07/2018 Genitourinary/Nephrology No dysuria 03/07/2018 Gastrointestinal No abdominal pain 03/07/2018 Gastrointestinal No constipation 03/07/2018 Gastrointestinal No diarrhea 03/07/2018 Musculoskeletal back pain 03/07/2018 Dermatologic No rash Neurologic No alteration of consciousness 03/07/2018 Cardiovascular No chest pain/pressure 03/07/2018 Cardiovascular No dyspnea 03/07/2018 Respiratory No cough Respiratory No productive sputum 03/07/2018 Constitutional weight loss 02/20/2018 Constitutional No fever 02/20/2018 Constitutional fatigue 0 02/20/2018 Gastrointestinal No abdominal pain 02/20/2018 Gastrointestinal constipation 02/20/2018 Musculoskeletal arthralgia(s) 02/20/2018 Respiratory cigarette smoking 02/20/2018 Respiratory chest congestion 02/20/2018 Respiratory cough 2017 Constitutional No recent illness 02/20/2018 Constitutional anorexia 02/20/2018 Constitutional No night sweats 02/20/2018 Constitutional No chills 02/20/2018 Constitutional No diaphoresis 02/20/2018 Constitutional No insomnia 02/20/2018 Constitutional No malaise 02/20/2018 Constitutional No weight gain 02/20/2018 Eyes No eye discharge Eyes No eye erythema 07/2018 Ears/Nose/Throat/Neck No dizziness 02/20/2018 Ears/Nose/Throat/Neck No headache 02/20/2018 Cardiovascular No chest pain/pressure 02/20/2018 Genitourinary/Nephrology No dysuria 02/20/2018 Dermatologic No rash 07/2018 Dermatologic No sores Neurologic No alteration of consciousness 02/20/2018 Constitutional No night sweats 01/30/2018 Constitutional recent illness 01/30/2018 Constitutional No anorexia 01/30/2018 Constitutional No weight gain 01/30/2018 Constitutional No chills 01/30/2018 Constitutional No diaphoresis 01/30/2018 Constitutional fatigue 0 01/30/2018 Constitutional No fever 01/30/2018 Constitutional No insomnia 01/30/2018 Constitutional No malaise 01/30/2018 Constitutional No weight loss 01/30/2018 Eyes No blindness 2017 Eyes No eye discharge Eyes No eye erythema Ears/Nose/Throat/Neck nasal allergies 01/30/2018 Ears/Nose/Throat/Neck nasal discharge 01/30/2018 Cardiovascular No chest pain/pressure 01/30/2018 Cardiovascular No edema 01/30/2018 Respiratory No productive sputum 01/30/2018 Respiratory cough 2017 Respiratory dyspnea on exertion 01/30/2018 Gastrointestinal No abdominal pain 01/30/2018 Gastrointestinal No constipation 01/30/2018 Gastrointestinal No diarrhea 01/30/2018 Gastrointestinal No nausea 01/30/2018 Gastrointestinal No vomiting 01/30/2018 Genitourinary/Nephrology No dysuria 01/30/2018 Genitourinary/Nephrology flank pain 01/30/2018 Musculoskeletal back pain 01/30/2018 Dermatologic No rash Neurologic No alteration of consciousness 01/30/2018 Neurologic No mental status change 01/30/2018 Constitutional recent illness 01/14/2018 Constitutional No anorexia 01/14/2018 Constitutional No night sweats 01/14/2018 Constitutional No chills 01/14/2018 Constitutional No diaphoresis 01/14/2018 Constitutional fatigue 0 01/14/2018 Constitutional No fever 01/14/2018 Constitutional No insomnia 01/14/2018 Constitutional No malaise 01/14/2018 Constitutional No weight loss 01/14/2018 Constitutional No weight gain 01/14/2018 Dermatologic sores 01/14 Constitutional No diaphoresis 01/13/2018 Constitutional No night sweats 01/13/2018 Constitutional No recent illness 01/13/2018 Constitutional No anorexia 01/13/2018 Constitutional No weight gain 01/13/2018 Constitutional No chills 01/13/2018 Constitutional fatigue 0 01/13/2018 Constitutional No fever 01/13/2018 Constitutional No insomnia 01/13/2018 Constitutional No malaise 01/13/2018 Constitutional No weight loss 01/13/2018 Eyes No blindness 2017 Eyes No eye discharge Eyes No eye erythema 11/2017 Ears/Nose/Throat/Neck nasal allergies 01/13/2018 Ears/Nose/Throat/Neck nasal discharge 01/13/2018 Cardiovascular No chest pain/pressure 01/13/2018 Cardiovascular No edema 01/13/2018 Respiratory No productive sputum 01/13/2018 Respiratory cough 2017 Respiratory dyspnea on exertion 01/13/2018 Gastrointestinal No abdominal pain 01/13/2018 Gastrointestinal No constipation 01/13/2018 Gastrointestinal No diarrhea 01/13/2018 Gastrointestinal No nausea 01/13/2018 Gastrointestinal No vomiting 01/13/2018 Genitourinary/Nephrology No dysuria 01/13/2018 Genitourinary/Nephrology flank pain 01/13/2018 Musculoskeletal back pain 01/13/2018 Dermatologic No rash 11/2017 Neurologic No alteration of consciousness 01/13/2018 Neurologic No mental status change 01/13/2018 Constitutional No recent illness 11/19/2017 Constitutional No anorexia 11/19/2017 Constitutional No night sweats 11/19/2017 Constitutional No chills 11/19/2017 Constitutional No diaphoresis 11/19/2017 Constitutional fatigue 0 11/19/2017 Constitutional No fever 11/19/2017 Constitutional No insomnia 11/19/2017 Constitutional No malaise 11/19/2017 Constitutional No weight loss 11/19/2017 Constitutional No weight gain 11/19/2017 Eyes No eye discharge Eyes No eye erythema 05/2018 Ears/Nose/Throat/Neck No headache 11/19/2017 Cardiovascular No chest pain/pressure 11/19/2017 Cardiovascular No edema 11/19/2017 Respiratory No productive sputum 11/19/2017 Respiratory cough 2017 Respiratory dyspnea on exertion 11/19/2017 Gastrointestinal No abdominal pain 11/19/2017 Gastrointestinal constipation 11/19/2017 Gastrointestinal No diarrhea 11/19/2017 Gastrointestinal No dysphagia 11/19/2017 Gastrointestinal gastroesophageal reflux 11/19/2017 Genitourinary/Nephrology No dysuria 11/19/2017 Musculoskeletal No muscle weakness 11/19/2017 Dermatologic No rash 05/2018 Neurologic No alteration of consciousness 11/19/2017 Neurologic No aphasia Gastrointestinal gas and bloating 11/19/2017 Gastrointestinal nausea 11/19/2017 Gastrointestinal No vomiting 11/19/2017 Constitutional No recent illness 10/02/2017 Constitutional No chills 10/02/2017 Constitutional No diaphoresis 10/02/2017 Constitutional No fever 10/02/2017 Eyes No eye erythema Ears/Nose/Throat/Neck nasal allergies 10/02/2017 Ears/Nose/Throat/Neck nasal discharge 10/02/2017 Constitutional No anorexia 10/02/2017 Constitutional No night sweats 10/02/2017 Constitutional fatigue 0 10/02/2017 Constitutional No insomnia 10/02/2017 Constitutional No malaise 10/02/2017 Constitutional No weight loss 10/02/2017 Constitutional No weight gain 10/02/2017 Eyes No eye discharge Eyes No eye erythema Cardiovascular No chest pain/pressure 10/02/2017 Cardiovascular No edema 10/02/2017 Respiratory No productive sputum 10/02/2017 Respiratory cough 2017 Respiratory dyspnea on exertion 10/02/2017 Gastrointestinal No abdominal pain 10/02/2017 Gastrointestinal No constipation 10/02/2017 Gastrointestinal No diarrhea 10/02/2017 Genitourinary/Nephrology No dysuria 10/02/2017 Dermatologic No rash Neurologic No alteration of consciousness 10/02/2017 Gastrointestinal No vomiting 10/02/2017 Gastrointestinal No nausea 10/02/2017 Genitourinary/Nephrology flank pain 10/02/2017 Musculoskeletal back pain 10/02/2017 Neurologic No mental status change 10/02/2017 Constitutional No recent illness 07/23/2017 Constitutional No anorexia 07/23/2017 Constitutional No night sweats 07/23/2017 Constitutional No chills 07/23/2017 Constitutional No diaphoresis 07/23/2017 Constitutional fatigue 1 09/23/2016 Constitutional No fever 07/23/2017 Constitutional No insomnia 07/23/2017 Constitutional No malaise 07/23/2017 Constitutional No weight loss 07/23/2017 Constitutional No weight gain 07/23/2017 Eyes No eye discharge Eyes No eye erythema 07/2017 Ears/Nose/Throat/Neck No headache 07/23/2017 Cardiovascular No chest pain/pressure 07/23/2017 Cardiovascular No edema 07/23/2017 Respiratory No productive sputum 07/23/2017 Respiratory cough 2016 Respiratory dyspnea on exertion 07/23/2017 Gastrointestinal No abdominal pain 07/23/2017 Gastrointestinal No constipation 07/23/2017 Gastrointestinal No diarrhea 07/23/2017 Gastrointestinal No dysphagia 07/23/2017 Gastrointestinal gastroesophageal reflux 07/23/2017 Genitourinary/Nephrology No dysuria 07/23/2017 Musculoskeletal No muscle weakness 07/23/2017 Dermatologic No rash 07/2017 Neurologic No alteration of consciousness 07/23/2017 Neurologic No aphasia Constitutional No recent illness 04/25/2017 Constitutional No anorexia 04/25/2017 Constitutional No night sweats 04/25/2017 Constitutional No chills 04/25/2017 Constitutional No diaphoresis 04/25/2017 Constitutional fatigue 0 04/25/2017 Constitutional No fever 04/25/2017 Constitutional No insomnia 04/25/2017 Constitutional No malaise 04/25/2017 Constitutional No weight loss 04/25/2017 Constitutional No weight gain 04/25/2017 Eyes No eye discharge Eyes No eye erythema Ears/Nose/Throat/Neck cerumen 04/25/2017 Ears/Nose/Throat/Neck dizziness 04/25/2017 Ears/Nose/Throat/Neck No headache 04/25/2017 Cardiovascular No chest pain/pressure 04/25/2017 Cardiovascular No edema 04/25/2017 Respiratory No productive sputum 04/25/2017 Respiratory cough 2016 Gastrointestinal No abdominal pain 04/25/2017 Gastrointestinal No constipation 04/25/2017 Gastrointestinal No diarrhea 04/25/2017 Gastrointestinal No dysphagia 04/25/2017 Gastrointestinal gastroesophageal reflux 04/25/2017 Genitourinary/Nephrology No dysuria 04/25/2017 Musculoskeletal No muscle weakness 04/25/2017 Dermatologic No rash Neurologic No alteration of consciousness 04/25/2017 Neurologic No aphasia Respiratory dyspnea on exertion 04/25/2017 Constitutional No recent illness 02/19/2017 Constitutional No anorexia 02/19/2017 Constitutional No night sweats 02/19/2017 Constitutional No chills 02/19/2017 Constitutional No diaphoresis 02/19/2017 Constitutional fatigue 0 02/19/2017 Constitutional No fever 02/19/2017 Constitutional No insomnia 02/19/2017 Constitutional No malaise 02/19/2017 Constitutional No weight loss 02/19/2017 Constitutional No weight gain 02/19/2017 Eyes No eye discharge Eyes No eye erythema 06/2017 Ears/Nose/Throat/Neck dizziness 02/19/2017 Ears/Nose/Throat/Neck No headache 02/19/2017 Cardiovascular No chest pain/pressure 02/19/2017 Cardiovascular No edema 02/19/2017 Respiratory No productive sputum 02/19/2017 Respiratory cough 2016 Gastrointestinal No abdominal pain 02/19/2017 Gastrointestinal No constipation 02/19/2017 Gastrointestinal No diarrhea 02/19/2017 Genitourinary/Nephrology No dysuria 02/19/2017 Musculoskeletal No muscle weakness 02/19/2017 Dermatologic No rash 06/2017 Neurologic No alteration of consciousness 02/19/2017 Neurologic No aphasia Ears/Nose/Throat/Neck cerumen 02/19/2017 Gastrointestinal gastroesophageal reflux 02/19/2017 Gastrointestinal No dysphagia 02/19/2017 Constitutional recent illness 01/21/2017 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 Constitutional No night sweats 01/21/2017 Constitutional No chills 01/21/2017 Constitutional No diaphoresis 01/21/2017 Constitutional fatigue 0 01/21/2017 Constitutional No fever 01/21/2017 Constitutional No insomnia 01/21/2017 Constitutional No malaise 01/21/2017 Constitutional weight loss 01/21/2017 Constitutional No weight gain 01/21/2017 Eyes No eye discharge Eyes No eye erythema 07/2017 Ears/Nose/Throat/Neck dizziness 01/21/2017 Ears/Nose/Throat/Neck No headache 01/21/2017 Ears/Nose/Throat/Neck nasal allergies 01/21/2017 Cardiovascular No chest pain/pressure 01/21/2017 Cardiovascular No dyspnea 01/21/2017 Respiratory No productive sputum 01/21/2017 Respiratory No chest congestion 01/21/2017 Respiratory cough 2016 Gastrointestinal No abdominal pain 01/21/2017 Gastrointestinal constipation 01/21/2017 Gastrointestinal No diarrhea 01/21/2017 Gastrointestinal gastroesophageal reflux 01/21/2017 Gastrointestinal No nausea 01/21/2017 Gastrointestinal No vomiting 01/21/2017 Genitourinary/Nephrology No dysuria 01/21/2017 Musculoskeletal No joint complaint 01/21/2017 Dermatologic No rash 07/2017 Neurologic No alteration of consciousness 01/21/2017 Constitutional No recent illness 12/20/2016 Constitutional No anorexia 12/20/2016 Constitutional No chills 12/20/2016 Constitutional No night sweats 12/20/2016 Constitutional No diaphoresis 12/20/2016 Constitutional fatigue 0 12/20/2016 Constitutional No fever 12/20/2016 Constitutional No insomnia 12/20/2016 Constitutional No malaise 12/20/2016 Constitutional No weight loss 12/20/2016 Constitutional No weight gain 12/20/2016 Respiratory No productive sputum 12/20/2016 Respiratory chest congestion 12/20/2016 Respiratory cough 2016 Gastrointestinal No abdominal pain 12/20/2016 Gastrointestinal No constipation 12/20/2016 Gastrointestinal No diarrhea 12/20/2016 Genitourinary/Nephrology No dysuria 12/20/2016 Eyes No eye discharge Eyes No eye erythema 06/2017 Ears/Nose/Throat/Neck No dizziness 12/20/2016 Ears/Nose/Throat/Neck No headache 12/20/2016 Cardiovascular No chest pain/pressure 12/20/2016 Cardiovascular No edema 12/20/2016 Musculoskeletal No muscle weakness 12/20/2016 Dermatologic No rash 06/2017 Neurologic No aphasia Neurologic No alteration of consciousness 12/20/2016 Constitutional No recent illness 08/23/2016 Constitutional No anorexia 08/23/2016 Constitutional No night sweats 08/23/2016 Constitutional No chills 08/23/2016 Constitutional No diaphoresis 08/23/2016 Constitutional No fever 08/23/2016 Eyes No eye pain 017 Eyes No vision change Ears/Nose/Throat/Neck No dental pain 08/23/2016 Ears/Nose/Throat/Neck No facial pain 08/23/2016 Ears/Nose/Throat/Neck No facial swelling 08/23/2016 Ears/Nose/Throat/Neck No headache 08/23/2016 Ears/Nose/Throat/Neck nasal discharge 08/23/2016 Ears/Nose/Throat/Neck No nasal pain 08/23/2016 Ears/Nose/Throat/Neck No otitis media 08/23/2016 Ears/Nose/Throat/Neck No postnasal drip 08/23/2016 Ears/Nose/Throat/Neck No sinus congestion 08/23/2016 Ears/Nose/Throat/Neck No tympanic me mbrane perforation 08/23/2016 Cardiovascular No chest pain/pressure 08/23/2016 Cardiovascular No dyspnea 08/23/2016 Cardiovascular No exercise intolerance 08/23/2016 Cardiovascular No fatigue 08/23/2016 Respiratory No productive sputum 08/23/2016 Respiratory chest congestion 08/23/2016 Respiratory cigarette smoking 08/23/2016 Respiratory cough 2016 Respiratory No dyspnea 0 08/23/2016 Respiratory nocturnal cough 08/23/2016 Gastrointestinal No constipation 08/23/2016 Gastrointestinal No diarrhea 08/23/2016 Gastrointestinal No nausea 08/23/2016 Gastrointestinal No vomiting 08/23/2016 Genitourinary/Nephrology No dysuria 08/23/2016 Genitourinary/Nephrology No nocturia 08/23/2016 Genitourinary/Nephrology No polyuria 08/23/2016 Musculoskeletal No joint complaint 08/23/2016 Musculoskeletal No myalgias 08/23/2016 Dermatologic No rash 07/2017 Neurologic No dizziness 08/23/2016 Endocrine diabetes mellitus type 2 08/23/2016 Ears/Nose/Throat/Neck dizziness 08/23/2016 Musculoskeletal arthralgia(s) 08/23/2016 Psychiatric No depression 08/23/2016 Psychiatric No anxiety 0 08/23/2016 Constitutional No recent illness 05/22/2016 Constitutional No anorexia 05/22/2016 Constitutional No night sweats 05/22/2016 Constitutional No chills 05/22/2016 Constitutional No diaphoresis 05/22/2016 Constitutional No fever 05/22/2016 Eyes No eye pain 016 Eyes No vision change Ears/Nose/Throat/Neck No dental pain 05/22/2016 Ears/Nose/Throat/Neck No facial pain 05/22/2016 Ears/Nose/Throat/Neck No facial swelling 05/22/2016 Ears/Nose/Throat/Neck No headache 05/22/2016 Ears/Nose/Throat/Neck nasal discharge 05/22/2016 Ears/Nose/Throat/Neck No nasal pain 05/22/2016 Ears/Nose/Throat/Neck No otitis media 05/22/2016 Ears/Nose/Throat/Neck No postnasal drip 05/22/2016 Ears/Nose/Throat/Neck No sinus congestion 05/22/2016 Ears/Nose/Throat/Neck No tympanic me mbrane perforation 05/22/2016 Cardiovascular No chest pain/pressure 05/22/2016 Cardiovascular No dyspnea 05/22/2016 Cardiovascular No exercise intolerance 05/22/2016 Cardiovascular No fatigue 05/22/2016 Respiratory No productive sputum 05/22/2016 Respiratory chest congestion 05/22/2016 Respiratory cigarette smoking 05/22/2016 Respiratory No cough 06/2016 Respiratory No dyspnea 1 Respiratory nocturnal cough 05/22/2016 Gastrointestinal No constipation 05/22/2016 Gastrointestinal No diarrhea 05/22/2016 Gastrointestinal No nausea 05/22/2016 Gastrointestinal No vomiting 05/22/2016 Genitourinary/Nephrology No dysuria 05/22/2016 Genitourinary/Nephrology No nocturia 05/22/2016 Genitourinary/Nephrology No polyuria 05/22/2016 Musculoskeletal No joint complaint 05/22/2016 Musculoskeletal No myalgias 05/22/2016 Dermatologic No rash 06/2016 Neurologic No dizziness 05/22/2016 Endocrine diabetes mellitus type 2 05/22/2016 Constitutional No recent illness 02/24/2016 Constitutional No chills 02/24/2016 Constitutional No night sweats 02/24/2016 Constitutional No anorexia 02/24/2016 Constitutional No diaphoresis 02/24/2016 Constitutional No fatigue 02/24/2016 Constitutional No fever 02/24/2016 Constitutional No insomnia 02/24/2016 Constitutional No weight loss 02/24/2016 Constitutional No malaise 02/24/2016 Constitutional No weight gain 02/24/2016 Ears/Nose/Throat/Neck No dizziness 02/24/2016 Ears/Nose/Throat/Neck No headache 02/24/2016 Eyes No eye discharge Eyes No eye erythema Cardiovascular No chest pain/pressure 02/24/2016 Respiratory cough 2015 Gastrointestinal No abdominal pain 02/24/2016 Gastrointestinal No constipation 02/24/2016 Gastrointestinal No diarrhea 02/24/2016 Genitourinary/Nephrology dysuria 02/24/2016 Genitourinary/Nephrology urinary urgency 02/24/2016 Musculoskeletal No joint complaint 02/24/2016 Dermatologic No rash Dermatologic No sores Neurologic No alteration of consciousness 02/24/2016 Gastrointestinal anorexia 01/27/2016 Gastrointestinal constipation 01/27/2016 Gastrointestinal No diarrhea 01/27/2016 Gastrointestinal No abdominal pain 01/27/2016 Gastrointestinal nausea 01/27/2016 Gastrointestinal No vomiting 01/27/2016 Gastrointestinal gastroesophageal reflux 01/27/2016 Respiratory No cough Respiratory cigarette smoking 01/27/2016 Respiratory No chest tightness 01/27/2016 Respiratory No chest congestion 01/27/2016 Respiratory No dyspnea on exertion 01/27/2016 Respiratory No dyspnea 0 01/27/2016 Constitutional No recent illness 01/27/2016 Constitutional anorexia 01/27/2016 Constitutional No night sweats 01/27/2016 Constitutional No chills 01/27/2016 Constitutional No diaphoresis 01/27/2016 Constitutional fatigue 0 01/27/2016 Constitutional No fever 01/27/2016 Constitutional No insomnia 01/27/2016 Constitutional No malaise 01/27/2016 Constitutional weight loss 01/27/2016 Constitutional No weight gain 01/27/2016 Constitutional No obesity 01/27/2016 Cardiovascular No chest pain/pressure 01/27/2016 Cardiovascular No dyspnea 01/27/2016 Cardiovascular No edema 01/27/2016 Ears/Nose/Throat/Neck No nasal allergies 01/27/2016 Ears/Nose/Throat/Neck No nasal discharge 01/27/2016 Eyes No vision change Genitourinary/Nephrology No dysuria 01/27/2016 Genitourinary/Nephrology No urinary urgenc y 01/27/2016 Genitourinary/Nephrology No urinary frequency 01/27/2016 Genitourinary/Nephrology No urinary incontinence 01/27/2016 Genitourinary/Nephrology urinary ret ention/hesitancy 01/27/2016 Genitourinary/Nephrology urinary tra ct obstruction 01/27/2016 Musculoskeletal myalgias 01/27/2016 Musculoskeletal No muscle weakness 01/27/2016 Musculoskeletal No joint complaint 01/27/2016 Dermatologic No rash Dermatologic No sores Psychiatric No depression 01/27/2016 Psychiatric No anxiety 0 01/27/2016 Constitutional No recent illness 11/25/2015 Constitutional No anorexia 11/25/2015 Constitutional No night sweats 11/25/2015 Constitutional No chills 11/25/2015 Constitutional No diaphoresis 11/25/2015 Constitutional No fatigue 11/25/2015 Constitutional No fever 11/25/2015 Constitutional No insomnia 11/25/2015 Constitutional No malaise 11/25/2015 Constitutional No weight loss 11/25/2015 Constitutional No weight gain 11/25/2015 Eyes No eye discharge Eyes No eye erythema Ears/Nose/Throat/Neck dizziness 11/25/2015 Ears/Nose/Throat/Neck nasal allergies 11/25/2015 Ears/Nose/Throat/Neck nasal discharge 11/25/2015 Cardiovascular No chest pain/pressure 11/25/2015 Cardiovascular No edema 11/25/2015 Cardiovascular No dyspnea 11/25/2015 Respiratory productive sputum 11/25/2015 Respiratory cough 2015 Gastrointestinal No abdominal pain 11/25/2015 Gastrointestinal No constipation 11/25/2015 Gastrointestinal No diarrhea 11/25/2015 Genitourinary/Nephrology No dysuria 11/25/2015 Musculoskeletal No joint complaint 11/25/2015 Dermatologic No rash Neurologic No alteration of consciousness 11/25/2015 Psychiatric anxiety 11/10 Endocrine No cold sensitivity 11/25/2015 Endocrine No dry or coarse skin 11/25/2015 Constitutional No recent illness 07/28/2015 Constitutional No anorexia 07/28/2015 Constitutional No night sweats 07/28/2015 Constitutional No chills 07/28/2015 Constitutional No diaphoresis 07/28/2015 Constitutional No fever 07/28/2015 Eyes No eye pain 015 Eyes No vision change Ears/Nose/Throat/Neck No dental pain 07/28/2015 Ears/Nose/Throat/Neck No facial pain 07/28/2015 Ears/Nose/Throat/Neck No facial swelling 07/28/2015 Ears/Nose/Throat/Neck No headache 07/28/2015 Ears/Nose/Throat/Neck nasal discharge 07/28/2015 Ears/Nose/Throat/Neck No nasal pain 07/28/2015 Ears/Nose/Throat/Neck No otitis media 07/28/2015 Ears/Nose/Throat/Neck No postnasal drip 07/28/2015 Ears/Nose/Throat/Neck No sinus congestion 07/28/2015 Ears/Nose/Throat/Neck No tympanic me mbrane perforation 07/28/2015 Cardiovascular No chest pain/pressure 07/28/2015 Cardiovascular No dyspnea 07/28/2015 Cardiovascular No exercise intolerance 07/28/2015 Cardiovascular No fatigue 07/28/2015 Respiratory No productive sputum 07/28/2015 Respiratory No chest congestion 07/28/2015 Respiratory nocturnal cough 07/28/2015 Gastrointestinal No constipation 07/28/2015 Gastrointestinal No diarrhea 07/28/2015 Gastrointestinal No nausea 07/28/2015 Gastrointestinal No vomiting 07/28/2015 Genitourinary/Nephrology No dysuria 07/28/2015 Genitourinary/Nephrology No nocturia 07/28/2015 Genitourinary/Nephrology No polyuria 07/28/2015 Musculoskeletal No joint complaint 07/28/2015 Musculoskeletal No myalgias 07/28/2015 Dermatologic No rash Neurologic No dizziness 07/28/2015 Endocrine diabetes mellitus type 2 07/28/2015 Respiratory cigarette smoking 07/28/2015 Respiratory No cough Respiratory No dyspnea 1 09/28/2014 Constitutional No night sweats 05/26/2015 Constitutional No chills 05/26/2015 Constitutional No fever 05/26/2015 Eyes No eye pain 015 Eyes No vision change Ears/Nose/Throat/Neck No dental pain 05/26/2015 Ears/Nose/Throat/Neck No facial pain 05/26/2015 Ears/Nose/Throat/Neck No facial swelling 05/26/2015 Ears/Nose/Throat/Neck No headache 05/26/2015 Ears/Nose/Throat/Neck nasal discharge 05/26/2015 Ears/Nose/Throat/Neck No nasal pain 05/26/2015 Ears/Nose/Throat/Neck No otitis media 05/26/2015 Ears/Nose/Throat/Neck No postnasal drip 05/26/2015 Ears/Nose/Throat/Neck No sinus congestion 05/26/2015 Ears/Nose/Throat/Neck No tympanic me mbrane perforation 05/26/2015 Cardiovascular No chest pain/pressure 05/26/2015 Cardiovascular No dyspnea 05/26/2015 Cardiovascular No exercise intolerance 05/26/2015 Cardiovascular No fatigue 05/26/2015 Respiratory No productive sputum 05/26/2015 Respiratory No chest congestion 05/26/2015 Respiratory cigarette smoking 05/26/2015 Respiratory cough 2014 Respiratory No dyspnea 1 Respiratory nocturnal cough 05/26/2015 Gastrointestinal No constipation 05/26/2015 Gastrointestinal No diarrhea 05/26/2015 Gastrointestinal No nausea 05/26/2015 Gastrointestinal No vomiting 05/26/2015 Genitourinary/Nephrology No dysuria 05/26/2015 Genitourinary/Nephrology No nocturia 05/26/2015 Genitourinary/Nephrology No polyuria 05/26/2015 Musculoskeletal No joint complaint 05/26/2015 Musculoskeletal No myalgias 05/26/2015 Dermatologic No rash Neurologic No dizziness 05/26/2015 Endocrine diabetes mellitus type 2 05/26/2015 Constitutional No recent illness 05/26/2015 Constitutional No anorexia 05/26/2015 Constitutional No night sweats 05/06/2015 Constitutional No chills 05/06/2015 Constitutional No fever 05/06/2015 Eyes No eye pain 015 Eyes No vision change Ears/Nose/Throat/Neck No dental pain 05/06/2015 Ears/Nose/Throat/Neck No facial pain 05/06/2015 Ears/Nose/Throat/Neck No facial swelling 05/06/2015 Ears/Nose/Throat/Neck No headache 05/06/2015 Ears/Nose/Throat/Neck nasal discharge 05/06/2015 Ears/Nose/Throat/Neck No nasal pain 05/06/2015 Ears/Nose/Throat/Neck No otitis media 05/06/2015 Ears/Nose/Throat/Neck No postnasal drip 05/06/2015 Ears/Nose/Throat/Neck No sinus congestion 05/06/2015 Ears/Nose/Throat/Neck No tympanic me mbrane perforation 05/06/2015 Cardiovascular No chest pain/pressure 05/06/2015 Cardiovascular dyspnea 0 05/06/2015 Cardiovascular exercise intolerance 05/06/2015 Cardiovascular fatigue 0 05/06/2015 Respiratory productive sputum 05/06/2015 Respiratory chest congestion 05/06/2015 Respiratory cigarette smoking 05/06/2015 Respiratory cough 2014 Respiratory No dyspnea 0 05/06/2015 Respiratory nocturnal cough 05/06/2015 Gastrointestinal No constipation 05/06/2015 Gastrointestinal No diarrhea 05/06/2015 Gastrointestinal No nausea 05/06/2015 Gastrointestinal No vomiting 05/06/2015 Genitourinary/Nephrology No dysuria 05/06/2015 Genitourinary/Nephrology No nocturia 05/06/2015 Genitourinary/Nephrology No polyuria 05/06/2015 Musculoskeletal No joint complaint 05/06/2015 Musculoskeletal muscle weakness 05/06/2015 Musculoskeletal No myalgias 05/06/2015 Dermatologic No rash Neurologic No dizziness 05/06/2015 Endocrine diabetes mellitus type 2 05/06/2015 Ears/Nose/Throat/Neck dizziness 05/06/2015 Constitutional No night sweats 04/25/2015 Constitutional No chills 04/25/2015 Constitutional No fever 04/25/2015 Eyes No eye pain 015 Eyes No vision change Ears/Nose/Throat/Neck No dental pain 04/25/2015 Ears/Nose/Throat/Neck dizziness 04/25/2015 Ears/Nose/Throat/Neck No facial pain 04/25/2015 Ears/Nose/Throat/Neck No facial swelling 04/25/2015 Ears/Nose/Throat/Neck No headache 04/25/2015 Ears/Nose/Throat/Neck nasal discharge 04/25/2015 Ears/Nose/Throat/Neck No nasal pain 04/25/2015 Ears/Nose/Throat/Neck No otitis media 04/25/2015 Ears/Nose/Throat/Neck No postnasal drip 04/25/2015 Ears/Nose/Throat/Neck No sinus congestion 04/25/2015 Ears/Nose/Throat/Neck No tympanic me mbrane perforation 04/25/2015 Cardiovascular No chest pain/pressure 04/25/2015 Cardiovascular dyspnea 0 04/25/2015 Cardiovascular exercise intolerance 04/25/2015 Cardiovascular fatigue 0 04/25/2015 Respiratory productive sputum 04/25/2015 Respiratory chest congestion 04/25/2015 Respiratory cigarette smoking 04/25/2015 Respiratory cough 2014 Respiratory No dyspnea 0 04/25/2015 Respiratory nocturnal cough 04/25/2015 Gastrointestinal No constipation 04/25/2015 Gastrointestinal No diarrhea 04/25/2015 Gastrointestinal No nausea 04/25/2015 Gastrointestinal No vomiting 04/25/2015 Genitourinary/Nephrology No dysuria 04/25/2015 Genitourinary/Nephrology No nocturia 04/25/2015 Genitourinary/Nephrology No polyuria 04/25/2015 Musculoskeletal No joint complaint 04/25/2015 Musculoskeletal muscle weakness 04/25/2015 Musculoskeletal No myalgias 04/25/2015 Dermatologic No rash Neurologic No dizziness 04/25/2015 Endocrine diabetes mellitus type 2 04/25/2015 Neurologic No dizziness 04/12/2015 Ears/Nose/Throat/Neck nasal discharge 04/12/2015 Respiratory chest congestion 04/12/2015 Respiratory productive sputum 04/12/2015 Constitutional No chills 04/12/2015 Constitutional No fever 04/12/2015 Constitutional No night sweats 04/12/2015 Ears/Nose/Throat/Neck No headache 04/12/2015 Cardiovascular No chest pain/pressure 04/12/2015 Cardiovascular fatigue 0 04/12/2015 Cardiovascular exercise intolerance 04/12/2015 Cardiovascular dyspnea 0 04/12/2015 Gastrointestinal No constipation 04/12/2015 Gastrointestinal No diarrhea 04/12/2015 Gastrointestinal No nausea 04/12/2015 Gastrointestinal No vomiting 04/12/2015 Musculoskeletal No joint complaint 04/12/2015 Musculoskeletal No myalgias 04/12/2015 Musculoskeletal muscle weakness 04/12/2015 Musculoskeletal No swelling 04/12/2015 Endocrine diabetes mellitus type 2 04/12/2015 Eyes No vision change Eyes No eye pain 015 Ears/Nose/Throat/Neck No dental pain 04/12/2015 Ears/Nose/Throat/Neck No facial pain 04/12/2015 Ears/Nose/Throat/Neck dizziness 04/12/2015 Ears/Nose/Throat/Neck No facial swelling 04/12/2015 Ears/Nose/Throat/Neck No nasal pain 04/12/2015 Ears/Nose/Throat/Neck No otitis media 04/12/2015 Ears/Nose/Throat/Neck No postnasal drip 04/12/2015 Ears/Nose/Throat/Neck No tympanic me mbrane perforation 04/12/2015 Respiratory cigarette smoking 04/12/2015 Respiratory No dyspnea 0 04/12/2015 Respiratory nocturnal cough 04/12/2015 Respiratory cough 2014 Dermatologic No rash 08/2014 Dermatologic actinic keratosis 04/12/2015 Genitourinary/Nephrology No nocturia 04/12/2015 Genitourinary/Nephrology No dysuria 04/12/2015 Genitourinary/Nephrology No polyuria 04/12/2015 Ears/Nose/Throat/Neck No sinus congestion 04/12/2015 Constitutional recent illness 03/24/2015 Constitutional No night sweats 03/24/2015 Constitutional No chills 03/24/2015 Constitutional No fever 03/24/2015 Ears/Nose/Throat/Neck dizziness 03/24/2015 Ears/Nose/Throat/Neck No headache 03/24/2015 Ears/Nose/Throat/Neck No nasal discharge 03/24/2015 Cardiovascular No chest pain/pressure 03/24/2015 Cardiovascular No dyspnea 03/24/2015 Cardiovascular No edema 03/24/2015 Cardiovascular fatigue 0 03/24/2015 Respiratory No chest congestion 03/24/2015 Respiratory cigarette smoking 03/24/2015 Respiratory No cough Respiratory daytime hypersomnolence 03/24/2015 Respiratory dyspnea 03/12 Gastrointestinal No abdominal pain 03/24/2015 Gastrointestinal No constipation 03/24/2015 Gastrointestinal No diarrhea 03/24/2015 Gastrointestinal nausea 03/24/2015 Gastrointestinal No vomiting 03/24/2015 Genitourinary/Nephrology No dysuria 03/24/2015 Genitourinary/Nephrology No hematuria 03/24/2015 Musculoskeletal No stiffness 03/24/2015 Musculoskeletal No back pain 03/24/2015 Dermatologic No rash Dermatologic sores 03/24 Neurologic dizziness Neurologic gait abnormality 03/24/2015 Psychiatric anxiety 03/12 Psychiatric No depression 03/24/2015 Endocrine diabetes mellitus type 2 03/24/2015 Constitutional No weight loss 03/24/2015 Eyes No eye discharge Eyes No eye pain 015 Ears/Nose/Throat/Neck cerumen 03/24/2015 Ears/Nose/Throat/Neck No hearing loss 03/24/2015 Ears/Nose/Throat/Neck No hoarseness 03/24/2015 Ears/Nose/Throat/Neck No nasal allergies 03/24/2015 Cardiovascular No orthopnea 03/24/2015 Respiratory No chest tightness 03/24/2015 Respiratory wheezing Musculoskeletal No swelling 03/24/2015 Neurologic No hearing loss 03/24/2015 Neurologic No pain, back 03/24/2015 Neurologic pain, limb Endocrine No weight gain 03/24/2015 Constitutional No anorexia 03/24/2015 Constitutional No diaphoresis 03/24/2015 Constitutional No insomnia 03/24/2015 Constitutional No malaise 03/24/2015 Eyes No eye erythema Eyes No vision change Musculoskeletal No joint complaint 03/24/2015 Constitutional No recent illness 03/07/2015 Constitutional No night sweats 03/07/2015 Constitutional No chills 03/07/2015 Constitutional No fever 03/07/2015 Ears/Nose/Throat/Neck dizziness 03/07/2015 Ears/Nose/Throat/Neck No headache 03/07/2015 Ears/Nose/Throat/Neck No nasal discharge 03/07/2015 Cardiovascular No chest pain/pressure 03/07/2015 Cardiovascular No dyspnea 03/07/2015 Cardiovascular No edema 03/07/2015 Cardiovascular fatigue 0 03/07/2015 Respiratory No chest congestion 03/07/2015 Respiratory cigarette smoking 03/07/2015 Respiratory cough 2014 Respiratory daytime hypersomnolence 03/07/2015 Respiratory dyspnea 02/10 Gastrointestinal No abdominal pain 03/07/2015 Gastrointestinal No constipation 03/07/2015 Gastrointestinal No diarrhea 03/07/2015 Gastrointestinal No nausea 03/07/2015 Gastrointestinal No vomiting 03/07/2015 Genitourinary/Nephrology No dysuria 03/07/2015 Genitourinary/Nephrology No hematuria 03/07/2015 Musculoskeletal stiffness 03/07/2015 Musculoskeletal No back pain 03/07/2015 Dermatologic No rash Dermatologic sores 03/07 Neurologic dizziness Neurologic gait abnormality 03/07/2015 Psychiatric anxiety 02/10 Psychiatric No depression 03/07/2015 Endocrine diabetes mellitus type 2 03/07/2015 Constitutional No recent illness 02/17/2015 Constitutional No fever 02/17/2015 Constitutional No chills 02/17/2015 Constitutional No night sweats 02/17/2015 Ears/Nose/Throat/Neck No headache 02/17/2015 Ears/Nose/Throat/Neck No nasal discharge 02/17/2015 Ears/Nose/Throat/Neck nasal allergies 02/17/2015 Ears/Nose/Throat/Neck dizziness 02/17/2015 Cardiovascular No chest pain/pressure 02/17/2015 Cardiovascular No dyspnea 02/17/2015 Cardiovascular fatigue 0 02/17/2015 Cardiovascular No edema 02/17/2015 Gastrointestinal No abdominal pain 02/17/2015 Gastrointestinal No vomiting 02/17/2015 Gastrointestinal No nausea 02/17/2015 Gastrointestinal No diarrhea 02/17/2015 Gastrointestinal No constipation 02/17/2015 Respiratory No chest congestion 02/17/2015 Respiratory cigarette smoking 02/17/2015 Respiratory cough 2014 Respiratory dyspnea 0 04/2015 Genitourinary/Nephrology No dysuria 02/17/2015 Genitourinary/Nephrology No hematuria 02/17/2015 Musculoskeletal No back pain 02/17/2015 Musculoskeletal stiffness 02/17/2015 Dermatologic No rash 04/2015 Dermatologic No sores Neurologic dizziness 04/2015 Neurologic gait abnormality 02/17/2015 Psychiatric anxiety 04/2015 Psychiatric No depression 02/17/2015 Respiratory daytime hypersomnolence 02/17/2015 Constitutional No recent illness 12/31/2014 Constitutional No anorexia 12/31/2014 Constitutional No night sweats 12/31/2014 Constitutional No chills 12/31/2014 Constitutional No diaphoresis 12/31/2014 Constitutional No fatigue 12/31/2014 Constitutional No fever 12/31/2014 Constitutional No insomnia 12/31/2014 Constitutional No malaise 12/31/2014 Constitutional No weight loss 12/31/2014 Constitutional No weight gain 12/31/2014 Constitutional recent illness 12/23/2014 Constitutional No anorexia 12/23/2014 Constitutional No fatigue 12/23/2014 Constitutional No diaphoresis 12/23/2014 Constitutional No chills 12/23/2014 Constitutional No insomnia 12/23/2014 Constitutional No fever 12/23/2014 Constitutional No malaise 12/23/2014 Eyes No eye discharge Eyes No eye erythema Eyes No vision change Ears/Nose/Throat/Neck dizziness 12/23/2014 Ears/Nose/Throat/Neck No headache 12/23/2014 Gastrointestinal vomiting 12/23/2014 Gastrointestinal nausea 12/23/2014 Respiratory No cough Cardiovascular No chest pain/pressure 12/23/2014 Cardiovascular No dyspnea 12/23/2014 Cardiovascular No edema 12/23/2014 Dermatologic No rash Dermatologic No sores Musculoskeletal No joint complaint 12/23/2014 Constitutional No chills 12/09/2014 Constitutional No fever 12/09/2014 Constitutional No weight loss 12/09/2014 Eyes No eye discharge Eyes No eye pain 015 Ears/Nose/Throat/Neck cerumen 12/09/2014 Ears/Nose/Throat/Neck dizziness 12/09/2014 Ears/Nose/Throat/Neck No headache 12/09/2014 Ears/Nose/Throat/Neck No hearing loss 12/09/2014 Ears/Nose/Throat/Neck No hoarseness 12/09/2014 Ears/Nose/Throat/Neck No nasal allergies 12/09/2014 Ears/Nose/Throat/Neck No nasal discharge 12/09/2014 Cardiovascular No chest pain/pressure 12/09/2014 Cardiovascular No dyspnea 12/09/2014 Cardiovascular No fatigue 12/09/2014 Cardiovascular No orthopnea 12/09/2014 Respiratory No chest tightness 12/09/2014 Respiratory cigarette smoking 12/09/2014 Respiratory No cough Respiratory wheezing Gastrointestinal No abdominal pain 12/09/2014 Gastrointestinal No constipation 12/09/2014 Gastrointestinal No diarrhea 12/09/2014 Genitourinary/Nephrology No hematuria 12/09/2014 Genitourinary/Nephrology No dysuria 12/09/2014 Musculoskeletal No back pain 12/09/2014 Musculoskeletal No stiffness 12/09/2014 Musculoskeletal No swelling 12/09/2014 Dermatologic No rash Dermatologic No sores Neurologic dizziness Neurologic No hearing loss 12/09/2014 Neurologic No pain, back 12/09/2014 Neurologic pain, limb Endocrine No weight gain 12/09/2014 Physical Exam Exam Name System Name It em Name Status Result Effective Dates Notes Full Exam - General 1994 Constitutional general appearance Overall: well developed 03/03/2019 None Full Exam - General 1994 Constitutional general appearance Overall: in no acute distress 03/03/2019 None Full Exam - General 1994 Constitutional general appearance Overall: well nourished 03/03/2019 None Full Exam - General 1994 Constitutional general appearance Nourishment: thin 03/03/2019 None Full Exam - General 1994 Eyes conjunctiva/eyelids Overall: conjunctiva clear 03/03/2019 None Full Exam - General 1994 Eyes conjunctiva/eyelids Overall: cornea clear 03/03/2019 None Full Exam - General 1994 Eyes conjunctiva/eyelids Overall: eyelids normal 03/03/2019 None Full Exam - General 1994 Eyes pupils and irises Overall: pupils equal, round, reactive to light and accomodation 03/03/2019 None Full Exam - General 1994 Ears/Nose/Throat otoscopic exam Overall: external auditory canals clear 03/03/2019 None Full Exam - General 1994 Ears/Nose/Throat otoscopic exam Overall: tympanic membranes clear 03/03/2019 None Full Exam - General 1994 Ears/Nose/Throat lips/teeth/gingiva Overall: benign lips 03/03/2019 None Full Exam - General 1994 Ears/Nose/Throat oral cavity/pharynx/larynx Overall: oral mucosa clear 03/03/2019 None Full Exam - General 1994 Ears/Nose/Throat oral cavity/pharynx/larynx Overall: oropharyngeal mucosa clear 03/03/2019 None Full Exam - General 1994 Respiratory auscultation Diffuse: diminished 03/03/2019 None Full Exam - General 1994 Respiratory respiratory effort/rhythm Overall: no retractions 03/03/2019 None Full Exam - General 1994 Respiratory respiratory effort/rhythm Overall: normal rate 03/03/2019 None Full Exam - General 1994 Cardiovascular auscultation of heart Overall: regular rate 03/03/2019 None Full Exam - General 1994 Cardiovascular auscultation of heart Overall: normal heart sounds 03/03/2019 None Full Exam - General 1994 Lymphatic neck nodes Overall: anterior cervical chain benign 03/03/2019 None Full Exam - General 1994 Lymphatic neck nodes Overall: posterior cervical chain benign 03/03/2019 None Full Exam - General 1994 Musculoskeletal spine, ribs and pelvis Spine: tender @ lumbar spine 03/03/2019 None Full Exam - General 1994 Musculoskeletal gait and station Overall: normal gait 03/03/2019 None Full Exam - General 1994 Musculoskeletal gait and station Overall: normal station 03/03/2019 None Full Exam - General 1994 Musculoskeletal head and neck Overall: head atraumatic 03/03/2019 None Full Exam - General 1994 Integument inspection of skin Overall: few scattered moles, no gross abnormalities 03/03/2019 None Full Exam - General 1994 Neurologic cranial nerves Overall: crainial nerves 2 - 12 grossly intact 03/03/2019 None Full Exam - General 1994 Psychiatric orientation/consciousness Overall: oriented to person, place and time 03/03/2019 None Full Exam - General 1994 Psychiatric mood and affect Overall: normal mood and affect 03/03/2019 None Full Exam - General 1994 Psychiatric appearance Overall: well-groomed, good eye contact 03/03/2019 None Full Exam - General 1994 Respiratory auscultation Lower lung field: diminished 03/03/2019 None Full Exam - General 1994 Constitutional general appearance Overall: well developed 12/02/2018 None Full Exam - General 1994 Constitutional general appearance Overall: in no acute distress 12/02/2018 None Full Exam - General 1994 Constitutional general appearance Overall: well nourished 12/02/2018 None Full Exam - General 1994 Constitutional general appearance Nourishment: thin 12/02/2018 None Full Exam - General 1994 Eyes conjunctiva/eyelids Overall: conjunctiva clear 12/02/2018 None Full Exam - General 1994 Eyes conjunctiva/eyelids Overall: cornea clear 12/02/2018 None Full Exam - General 1994 Eyes conjunctiva/eyelids Overall: eyelids normal 12/02/2018 None Full Exam - General 1994 Eyes pupils and irises Overall: pupils equal, round, reactive to light and accomodation 12/02/2018 None Full Exam - General 1995 Ears/Nose/Throat otoscopic exam Overall: external auditory canals clear 12/02/2018 None Full Exam - General 1994 Ears/Nose/Throat otoscopic exam Overall: tympanic membranes clear 12/02/2018 None Full Exam - General 1994 Ears/Nose/Throat lips/teeth/gingiva Overall: benign lips 12/02/2018 None Full Exam - General 1994 Ears/Nose/Throat oral cavity/pharynx/larynx Overall: oral mucosa clear 12/02/2018 None Full Exam - General 1994 Ears/Nose/Throat oral cavity/pharynx/larynx Overall: oropharyngeal mucosa clear 12/02/2018 None Full Exam - General 1994 Respiratory auscultation Diffuse: diminished 12/02/2018 None Full Exam - General 1994 Respiratory respiratory effort/rhythm Overall: no retractions 12/02/2018 None Full Exam - General 1994 Respiratory respiratory effort/rhythm Overall: normal rate 12/02/2018 None Full Exam - General 1994 Cardiovascular auscultation of heart Overall: regular rate 12/02/2018 None Full Exam - General 1994 Cardiovascular auscultation of heart Overall: normal heart sounds 12/02/2018 None Full Exam - General 1994 Lymphatic neck nodes Overall: anterior cervical chain benign 12/02/2018 None Full Exam - General 1994 Lymphatic neck nodes Overall: posterior cervical chain benign 12/02/2018 None Full Exam - General 1994 Musculoskeletal spine, ribs and pelvis Spine: tender @ lumbar spine 12/02/2018 None Full Exam - General 1994 Musculoskeletal gait and station Overall: normal gait 12/02/2018 None Full Exam - General 1994 Musculoskeletal gait and station Overall: normal station 12/02/2018 None Full Exam - General 1994 Musculoskeletal head and neck Overall: head atraumatic 12/02/2018 None Full Exam - General 1994 Integument inspection of skin Overall: few scattered moles, no gross abnormalities 12/02/2018 None Full Exam - General 1994 Neurologic cranial nerves Overall: crainial nerves 2 - 12 grossly intact 12/02/2018 None Full Exam - General 1994 Psychiatric orientation/consciousness Overall: oriented to person, place and time 12/02/2018 None Full Exam - General 1994 Psychiatric mood and affect Overall: normal mood and affect 12/02/2018 None Full Exam - General 1994 Psychiatric appearance Overall: well-groomed, good eye contact 12/02/2018 None Full Exam - General 1994 Constitutional general appearance Overall: well developed 10/17/2018 None Full Exam - General 1994 Constitutional general appearance Overall: in no acute distress 10/17/2018 None Full Exam - General 1994 Constitutional general appearance Overall: well nourished 10/17/2018 None Full Exam - General 1994 Constitutional general appearance Nourishment: thin 10/17/2018 None Full Exam - General 1994 Eyes conjunctiva/eyelids Overall: conjunctiva clear 10/17/2018 None Full Exam - General 1994 Eyes conjunctiva/eyelids Overall: cornea clear 10/17/2018 None Full Exam - General 1994 Eyes conjunctiva/eyelids Overall: eyelids normal 10/17/2018 None Full Exam - General 1994 Eyes pupils and irises Overall: pupils equal, round, reactive to light and accomodation 10/17/2018 None Full Exam - General 1994 Ears/Nose/Throat otoscopic exam Overall: external auditory canals clear 10/17/2018 None Full Exam - General 1994 Ears/Nose/Throat otoscopic exam Overall: tympanic membranes clear 10/17/2018 None Full Exam - General 1994 Ears/Nose/Throat lips/teeth/gingiva Overall: benign lips 10/17/2018 None Full Exam - General 1994 Ears/Nose/Throat oral cavity/pharynx/larynx Overall: oral mucosa clear 10/17/2018 None Full Exam - General 1994 Ears/Nose/Throat oral cavity/pharynx/larynx Overall: oropharyngeal mucosa clear 10/17/2018 None Full Exam - General 1994 Respiratory auscultation Diffuse: diminished 10/17/2018 None Full Exam - General 1994 Respiratory respiratory effort/rhythm Overall: no retractions 10/17/2018 None Full Exam - General 1994 Respiratory respiratory effort/rhythm Overall: normal rate 10/17/2018 None Full Exam - General 1994 Cardiovascular auscultation of heart Overall: regular rate 10/17/2018 None Full Exam - General 1994 Cardiovascular auscultation of heart Overall: normal heart sounds 10/17/2018 None Full Exam - General 1994 Lymphatic neck nodes Overall: anterior cervical chain benign 10/17/2018 None Full Exam - General 1994 Lymphatic neck nodes Overall: posterior cervical chain benign 10/17/2018 None Full Exam - General 1994 Musculoskeletal gait and station Overall: normal gait 10/17/2018 None Full Exam - General 1994 Musculoskeletal gait and station Overall: normal station 10/17/2018 None Full Exam - General 1994 Musculoskeletal head and neck Overall: head atraumatic 10/17/2018 None Full Exam - General 1994 Integument inspection of skin Overall: few scattered moles, no gross abnormalities 10/17/2018 None Full Exam - General 1994 Neurologic cranial nerves Overall: crainial nerves 2 - 12 grossly intact 10/17/2018 None Full Exam - General 1994 Psychiatric orientation/consciousness Overall: oriented to person, place and time 10/17/2018 None Full Exam - General 1994 Psychiatric mood and affect Overall: normal mood and affect 10/17/2018 None Full Exam - General 1994 Psychiatric appearance Overall: well-groomed, good eye contact 10/17/2018 None Full Exam - General 1994 Constitutional general appearance Overall: well developed 09/02/2018 None Full Exam - General 1994 Constitutional general appearance Overall: in no acute distress 09/02/2018 None Full Exam - General 1994 Constitutional general appearance Overall: well nourished 09/02/2018 None Full Exam - General 1994 Constitutional general appearance Nourishment: thin 09/02/2018 None Full Exam - General 1994 Eyes conjunctiva/eyelids Overall: conjunctiva clear 09/02/2018 None Full Exam - General 1994 Eyes conjunctiva/eyelids Overall: cornea clear 09/02/2018 None Full Exam - General 1994 Eyes conjunctiva/eyelids Overall: eyelids normal 09/02/2018 None Full Exam - General 1994 Eyes pupils and irises Overall: pupils equal, round, reactive to light and accomodation 09/02/2018 None Full Exam - General 1994 Ears/Nose/Throat otoscopic exam Overall: external auditory canals clear 09/02/2018 None Full Exam - General 1994 Ears/Nose/Throat otoscopic exam Overall: tympanic membranes clear 09/02/2018 None Full Exam - General 1994 Ears/Nose/Throat lips/teeth/gingiva Overall: benign lips 09/02/2018 None Full Exam - General 1994 Ears/Nose/Throat oral cavity/pharynx/larynx Overall: oral mucosa clear 09/02/2018 None Full Exam - General 1994 Ears/Nose/Throat oral cavity/pharynx/larynx Overall: oropharyngeal mucosa clear 09/02/2018 None Full Exam - General 1994 Respiratory auscultation Diffuse: diminished 09/02/2018 None Full Exam - General 1994 Respiratory auscultation Diffuse: rhonchi 09/02/2018 None Full Exam - General 1994 Respiratory auscultation Diffuse: expiratory wheezes 09/02/2018 None Full Exam - General 1994 Respiratory respiratory effort/rhythm Overall: no retractions 09/02/2018 None Full Exam - General 1994 Respiratory respiratory effort/rhythm Overall: normal rate 09/02/2018 None Full Exam - General 1994 Cardiovascular auscultation of heart Overall: regular rate 09/02/2018 None Full Exam - General 1994 Cardiovascular auscultation of heart Overall: normal heart sounds 09/02/2018 None Full Exam - General 1995 Lymphatic neck nodes Overall: anterior cervical chain benign 09/02/2018 None Full Exam - General 1994 Lymphatic neck nodes Overall: posterior cervical chain benign 09/02/2018 None Full Exam - General 1994 Musculoskeletal spine, ribs and pelvis Spine: tender @ lumbar spine 09/02/2018 None Full Exam - General 1994 Musculoskeletal gait and station Overall: normal gait 09/02/2018 None Full Exam - General 1994 Musculoskeletal gait and station Overall: normal station 09/02/2018 None Full Exam - General 1994 Musculoskeletal head and neck Overall: head atraumatic 09/02/2018 None Full Exam - General 1994 Integument inspection of skin Overall: few scattered moles, no gross abnormalities 09/02/2018 None Full Exam - General 1994 Neurologic cranial nerves Overall: crainial nerves 2 - 12 grossly intact 09/02/2018 None Full Exam - General 1994 Psychiatric orientation/consciousness Overall: oriented to person, place and time 09/02/2018 None Full Exam - General 1994 Psychiatric mood and affect Overall: normal mood and affect 09/02/2018 None Full Exam - General 1994 Psychiatric appearance Overall: well-groomed, good eye contact 09/02/2018 None Full Exam - General 1994 Constitutional general appearance Overall: well developed 06/30/2018 None Full Exam - General 1994 Constitutional general appearance Overall: in no acute distress 06/30/2018 None Full Exam - General 1994 Constitutional general appearance Overall: well nourished 06/30/2018 None Full Exam - General 1994 Constitutional general appearance Nourishment: thin 06/30/2018 None Full Exam - General 1994 Eyes conjunctiva/eyelids Overall: conjunctiva clear 06/30/2018 None Full Exam - General 1994 Eyes conjunctiva/eyelids Overall: cornea clear 06/30/2018 None Full Exam - General 1994 Eyes conjunctiva/eyelids Overall: eyelids normal 06/30/2018 None Full Exam - General 1994 Eyes pupils and irises Overall: pupils equal, round, reactive to light and accomodation 06/30/2018 None Full Exam - General 1994 Ears/Nose/Throat otoscopic exam Overall: external auditory canals clear 06/30/2018 None Full Exam - General 1994 Ears/Nose/Throat otoscopic exam Overall: tympanic membranes clear 06/30/2018 None Full Exam - General 1994 Ears/Nose/Throat lips/teeth/gingiva Overall: benign lips 06/30/2018 None Full Exam - General 1994 Ears/Nose/Throat oral cavity/pharynx/larynx Overall: oral mucosa clear 06/30/2018 None Full Exam - General 1994 Ears/Nose/Throat oral cavity/pharynx/larynx Overall: oropharyngeal mucosa clear 06/30/2018 None Full Exam - General 1994 Respiratory auscultation Diffuse: diminished 06/30/2018 None Full Exam - General 1994 Respiratory respiratory effort/rhythm Overall: no retractions 06/30/2018 None Full Exam - General 1994 Respiratory respiratory effort/rhythm Overall: normal rate 06/30/2018 None Full Exam - General 1994 Cardiovascular auscultation of heart Overall: regular rate 06/30/2018 None Full Exam - General 1994 Cardiovascular auscultation of heart Overall: normal heart sounds 06/30/2018 None Full Exam - General 1994 Lymphatic neck nodes Overall: anterior cervical chain benign 06/30/2018 None Full Exam - General 1994 Lymphatic neck nodes Overall: posterior cervical chain benign 06/30/2018 None Full Exam - General 1994 Musculoskeletal gait and station Overall: normal gait 06/30/2018 None Full Exam - General 1994 Musculoskeletal gait and station Overall: normal station 06/30/2018 None Full Exam - General 1994 Musculoskeletal head and neck Overall: head atraumatic 06/30/2018 None Full Exam - General 1994 Neurologic cranial nerves Overall: crainial nerves 2 - 12 grossly intact 06/30/2018 None Full Exam - General 1994 Psychiatric orientation/consciousness Overall: oriented to person, place and time 06/30/2018 None Full Exam - General 1994 Psychiatric mood and affect Overall: normal mood and affect 06/30/2018 None Full Exam - General 1994 Psychiatric appearance Overall: well-groomed, good eye contact 06/30/2018 None Full Exam - General 1994 Constitutional general appearance Overall: well developed 06/06/2018 None Full Exam - General 1994 Constitutional general appearance Overall: in no acute distress 06/06/2018 None Full Exam - General 1994 Constitutional general appearance Overall: well nourished 06/06/2018 None Full Exam - General 1994 Constitutional general appearance Nourishment: thin 06/06/2018 None Full Exam - General 1994 Eyes conjunctiva/eyelids Overall: conjunctiva clear 06/06/2018 None Full Exam - General 1994 Eyes conjunctiva/eyelids Overall: cornea clear 06/06/2018 None Full Exam - General 1994 Eyes conjunctiva/eyelids Overall: eyelids normal 06/06/2018 None Full Exam - General 1994 Eyes pupils and irises Overall: pupils equal, round, reactive to light and accomodation 06/06/2018 None Full Exam - General 1994 Ears/Nose/Throat otoscopic exam Overall: external auditory canals clear 06/06/2018 None Full Exam - General 1994 Ears/Nose/Throat otoscopic exam Overall: tympanic membranes clear 06/06/2018 None Full Exam - General 1994 Ears/Nose/Throat lips/teeth/gingiva Overall: benign lips 06/06/2018 None Full Exam - General 1994 Ears/Nose/Throat oral cavity/pharynx/larynx Overall: oral mucosa clear 06/06/2018 None Full Exam - General 1994 Ears/Nose/Throat oral cavity/pharynx/larynx Overall: oropharyngeal mucosa clear 06/06/2018 None Full Exam - General 1994 Respiratory auscultation Diffuse: diminished 06/06/2018 None Full Exam - General 1994 Respiratory respiratory effort/rhythm Overall: no retractions 06/06/2018 None Full Exam - General 1994 Respiratory respiratory effort/rhythm Overall: normal rate 06/06/2018 None Full Exam - General 1994 Cardiovascular auscultation of heart Overall: regular rate 06/06/2018 None Full Exam - General 1994 Cardiovascular auscultation of heart Overall: normal heart sounds 06/06/2018 None Full Exam - General 1994 Lymphatic neck nodes Overall: anterior cervical chain benign 06/06/2018 None Full Exam - General 1994 Lymphatic neck nodes Overall: posterior cervical chain benign 06/06/2018 None Full Exam - General 1994 Musculoskeletal spine, ribs and pelvis Spine: tender @ lumbar spine 06/06/2018 None Full Exam - General 1994 Musculoskeletal gait and station Overall: normal gait 06/06/2018 None Full Exam - General 1994 Musculoskeletal gait and station Overall: normal station 06/06/2018 None Full Exam - General 1994 Musculoskeletal head and neck Overall: head atraumatic 06/06/2018 None Full Exam - General 1994 Neurologic cranial nerves Overall: crainial nerves 2 - 12 grossly intact 06/06/2018 None Full Exam - General 1994 Psychiatric orientation/consciousness Overall: oriented to person, place and time 06/06/2018 None Full Exam - General 1994 Psychiatric mood and affect Overall: normal mood and affect 06/06/2018 None Full Exam - General 1994 Psychiatric appearance Overall: well-groomed, good eye contact 06/06/2018 None Full Exam - General 1994 Abdomen abdominal exam Overall: no tenderness 06/06/2018 None Full Exam - General 1994 Abdomen abdominal exam Overall: normal bowel sounds 06/06/2018 None Full Exam - General 1994 Integument inspection of skin Location: face 06/06/2018 None Full Exam - General 1994 Integument inspection of skin Rash/Lesions: papule 06/06/2018 pustular drainage Full Exam - General 1994 Constitutional general appearance Overall: well developed 04/04/2018 None Full Exam - General 1994 Constitutional general appearance Overall: in no acute distress 04/04/2018 None Full Exam - General 1994 Constitutional general appearance Overall: well nourished 04/04/2018 None Full Exam - General 1994 Constitutional general appearance Nourishment: thin 04/04/2018 None Full Exam - General 1994 Eyes conjunctiva/eyelids Overall: conjunctiva clear 04/04/2018 None Full Exam - General 1994 Eyes conjunctiva/eyelids Overall: cornea clear 04/04/2018 None Full Exam - General 1994 Eyes conjunctiva/eyelids Overall: eyelids normal 04/04/2018 None Full Exam - General 1994 Eyes pupils and irises Overall: pupils equal, round, reactive to light and accomodation 04/04/2018 None Full Exam - General 1994 Ears/Nose/Throat otoscopic exam Overall: external auditory canals clear 04/04/2018 None Full Exam - General 1994 Ears/Nose/Throat otoscopic exam Overall: tympanic membranes clear 04/04/2018 None Full Exam - General 1994 Ears/Nose/Throat lips/teeth/gingiva Overall: benign lips 04/04/2018 None Full Exam - General 1994 Ears/Nose/Throat oral cavity/pharynx/larynx Overall: oral mucosa clear 04/04/2018 None Full Exam - General 1994 Ears/Nose/Throat oral cavity/pharynx/larynx Overall: oropharyngeal mucosa clear 04/04/2018 None Full Exam - General 1994 Respiratory auscultation Diffuse: diminished 04/04/2018 None Full Exam - General 1994 Respiratory auscultation Diffuse: rhonchi 04/04/2018 None Full Exam - General 1994 Respiratory auscultation Diffuse: expiratory wheezes 04/04/2018 None Full Exam - General 1994 Respiratory respiratory effort/rhythm Overall: no retractions 04/04/2018 None Full Exam - General 1994 Respiratory respiratory effort/rhythm Overall: normal rate 04/04/2018 None Full Exam - General 1994 Cardiovascular auscultation of heart Overall: regular rate 04/04/2018 None Full Exam - General 1994 Cardiovascular auscultation of heart Overall: normal heart sounds 04/04/2018 None Full Exam - General 1994 Lymphatic neck nodes Overall: anterior cervical chain benign 04/04/2018 None Full Exam - General 1994 Lymphatic neck nodes Overall: posterior cervical chain benign 04/04/2018 None Full Exam - General 1994 Musculoskeletal spine, ribs and pelvis Spine: tender @ lumbar spine 04/04/2018 None Full Exam - General 1994 Musculoskeletal gait and station Overall: normal gait 04/04/2018 None Full Exam - General 1994 Musculoskeletal gait and station Overall: normal station 04/04/2018 None Full Exam - General 1994 Musculoskeletal head and neck Overall: head atraumatic 04/04/2018 None Full Exam - General 1994 Integument inspection of skin Overall: few scattered moles, no gross abnormalities 04/04/2018 None Full Exam - General 1994 Neurologic cranial nerves Overall: crainial nerves 2 - 12 grossly intact 04/04/2018 None Full Exam - General 1994 Psychiatric orientation/consciousness Overall: oriented to person, place and time 04/04/2018 None Full Exam - General 1994 Psychiatric mood and affect Overall: normal mood and affect 04/04/2018 None Full Exam - General 1994 Psychiatric appearance Overall: well-groomed, good eye contact 04/04/2018 None Full Exam - General 1994 Constitutional general appearance Overall: well developed 03/07/2018 None Full Exam - General 1994 Constitutional general appearance Overall: in no acute distress 03/07/2018 None Full Exam - General 1994 Constitutional general appearance Overall: well nourished 03/07/2018 None Full Exam - General 1994 Constitutional general appearance Nourishment: thin 03/07/2018 None Full Exam - General 1994 Eyes conjunctiva/eyelids Overall: conjunctiva clear 03/07/2018 None Full Exam - General 1994 Eyes conjunctiva/eyelids Overall: cornea clear 03/07/2018 None Full Exam - General 1994 Eyes conjunctiva/eyelids Overall: eyelids normal 03/07/2018 None Full Exam - General 1994 Eyes pupils and irises Overall: pupils equal, round, reactive to light and accomodation 03/07/2018 None Full Exam - General 1994 Ears/Nose/Throat lips/teeth/gingiva Overall: benign lips 03/07/2018 None Full Exam - General 1994 Ears/Nose/Throat oral cavity/pharynx/larynx Overall: oral mucosa clear 03/07/2018 None Full Exam - General 1994 Ears/Nose/Throat oral cavity/pharynx/larynx Overall: oropharyngeal mucosa clear 03/07/2018 None Full Exam - General 1994 Respiratory respiratory effort/rhythm Overall: no retractions 03/07/2018 None Full Exam - General 1994 Respiratory respiratory effort/rhythm Overall: normal rate 03/07/2018 None Full Exam - General 1994 Cardiovascular auscultation of heart Overall: regular rate 03/07/2018 None Full Exam - General 1994 Cardiovascular auscultation of heart Overall: normal heart sounds 03/07/2018 None Full Exam - General 1994 Lymphatic neck nodes Overall: anterior cervical chain benign 03/07/2018 None Full Exam - General 1994 Lymphatic neck nodes Overall: posterior cervical chain benign 03/07/2018 None Full Exam - General 1994 Musculoskeletal gait and station Overall: normal gait 03/07/2018 None Full Exam - General 1994 Musculoskeletal gait and station Overall: normal station 03/07/2018 None Full Exam - General 1994 Musculoskeletal head and neck Overall: head atraumatic 03/07/2018 None Full Exam - General 1994 Integument inspection of skin Overall: few scattered moles, no gross abnormalities 03/07/2018 None Full Exam - General 1994 Neurologic cranial nerves Overall: crainial nerves 2 - 12 grossly intact 03/07/2018 None Full Exam - General 1994 Psychiatric orientation/consciousness Overall: oriented to person, place and time 03/07/2018 None Full Exam - General 1994 Psychiatric mood and affect Overall: normal mood and affect 03/07/2018 None Full Exam - General 1994 Psychiatric appearance Overall: well-groomed, good eye contact 03/07/2018 None Full Exam - General 1994 Respiratory auscultation Overall: breath sounds clear bilaterally 03/07/2018 None Full Exam - General 1994 Musculoskeletal spine, ribs and pelvis Spine: tender @ lumbar spine 03/07/2018 tender paralumbar muscles on the right Full Exam - General 1994 Constitutional general appearance Overall: well developed 02/20/2018 None Full Exam - General 1994 Constitutional general appearance Overall: in no acute distress 02/20/2018 None Full Exam - General 1994 Constitutional general appearance Overall: well nourished 02/20/2018 None Full Exam - General 1994 Constitutional general appearance Nourishment: thin 02/20/2018 None Full Exam - General 1994 Eyes conjunctiva/eyelids Overall: conjunctiva clear 02/20/2018 None Full Exam - General 1994 Eyes conjunctiva/eyelids Overall: cornea clear 02/20/2018 None Full Exam - General 1994 Eyes conjunctiva/eyelids Overall: eyelids normal 02/20/2018 None Full Exam - General 1994 Eyes pupils and irises Overall: pupils equal, round, reactive to light and accomodation 02/20/2018 None Full Exam - General 1994 Ears/Nose/Throat otoscopic exam Overall: external auditory canals clear 02/20/2018 None Full Exam - General 1994 Ears/Nose/Throat otoscopic exam Overall: tympanic membranes clear 02/20/2018 None Full Exam - General 1994 Ears/Nose/Throat lips/teeth/gingiva Overall: benign lips 02/20/2018 None Full Exam - General 1994 Ears/Nose/Throat oral cavity/pharynx/larynx Overall: oral mucosa clear 02/20/2018 None Full Exam - General 1994 Ears/Nose/Throat oral cavity/pharynx/larynx Overall: oropharyngeal mucosa clear 02/20/2018 None Full Exam - General 1994 Respiratory auscultation Diffuse: rhonchi 02/20/2018 None Full Exam - General 1994 Respiratory auscultation Diffuse: expiratory wheezes 02/20/2018 None Full Exam - General 1994 Respiratory respiratory effort/rhythm Overall: no retractions 02/20/2018 None Full Exam - General 1994 Respiratory respiratory effort/rhythm Overall: normal rate 02/20/2018 None Full Exam - General 1994 Cardiovascular auscultation of heart Overall: regular rate 02/20/2018 None Full Exam - General 1994 Cardiovascular auscultation of heart Overall: normal heart sounds 02/20/2018 None Full Exam - General 1994 Lymphatic neck nodes Overall: anterior cervical chain benign 02/20/2018 None Full Exam - General 1994 Lymphatic neck nodes Overall: posterior cervical chain benign 02/20/2018 None Full Exam - General 1994 Musculoskeletal spine, ribs and pelvis Spine: tender @ lumbar spine 02/20/2018 None Full Exam - General 1994 Musculoskeletal gait and station Overall: normal gait 02/20/2018 None Full Exam - General 1994 Musculoskeletal gait and station Overall: normal station 02/20/2018 None Full Exam - General 1994 Musculoskeletal head and neck Overall: head atraumatic 02/20/2018 None Full Exam - General 1994 Neurologic cranial nerves Overall: crainial nerves 2 - 12 grossly intact 02/20/2018 None Full Exam - General 1994 Psychiatric orientation/consciousness Overall: oriented to person, place and time 02/20/2018 None Full Exam - General 1994 Psychiatric mood and affect Overall: normal mood and affect 02/20/2018 None Full Exam - General 1994 Psychiatric appearance Overall: well-groomed, good eye contact 02/20/2018 None Full Exam - General 1994 Respiratory auscultation Diffuse: diminished 02/20/2018 None Full Exam - General 1994 Integument inspection of skin Overall: few scattered moles, no gross abnormalities 02/20/2018 None Full Exam - General 1994 Constitutional general appearance Overall: well developed 01/30/2018 None Full Exam - General 1994 Constitutional general appearance Overall: in no acute distress 01/30/2018 None Full Exam - General 1994 Constitutional general appearance Overall: well nourished 01/30/2018 None Full Exam - General 1994 Constitutional general appearance Nourishment: thin 01/30/2018 None Full Exam - General 1994 Eyes conjunctiva/eyelids Overall: conjunctiva clear 01/30/2018 None Full Exam - General 1994 Eyes conjunctiva/eyelids Overall: cornea clear 01/30/2018 None Full Exam - General 1994 Eyes conjunctiva/eyelids Overall: eyelids normal 01/30/2018 None Full Exam - General 1994 Eyes pupils and irises Overall: pupils equal, round, reactive to light and accomodation 01/30/2018 None Full Exam - General 1994 Ears/Nose/Throat otoscopic exam Overall: external auditory canals clear 01/30/2018 None Full Exam - General 1994 Ears/Nose/Throat otoscopic exam Overall: tympanic membranes clear 01/30/2018 None Full Exam - General 1994 Ears/Nose/Throat lips/teeth/gingiva Overall: benign lips 01/30/2018 None Full Exam - General 1994 Ears/Nose/Throat oral cavity/pharynx/larynx Overall: oral mucosa clear 01/30/2018 None Full Exam - General 1994 Ears/Nose/Throat oral cavity/pharynx/larynx Overall: oropharyngeal mucosa clear 01/30/2018 None Full Exam - General 1994 Respiratory respiratory effort/rhythm Overall: no retractions 01/30/2018 None Full Exam - General 1994 Respiratory respiratory effort/rhythm Overall: normal rate 01/30/2018 None Full Exam - General 1994 Cardiovascular auscultation of heart Overall: regular rate 01/30/2018 None Full Exam - General 1994 Cardiovascular auscultation of heart Overall: normal heart sounds 01/30/2018 None Full Exam - General 1994 Musculoskeletal spine, ribs and pelvis Spine: tender @ lumbar spine 01/30/2018 None Full Exam - General 1994 Musculoskeletal gait and station Overall: normal gait 01/30/2018 None Full Exam - General 1994 Musculoskeletal gait and station Overall: normal station 01/30/2018 None Full Exam - General 1994 Musculoskeletal head and neck Overall: head atraumatic 01/30/2018 None Full Exam - General 1994 Psychiatric orientation/consciousness Overall: oriented to person, place and time 01/30/2018 None Full Exam - General 1994 Psychiatric mood and affect Overall: normal mood and affect 01/30/2018 None Full Exam - General 1994 Psychiatric appearance Overall: well-groomed, good eye contact 01/30/2018 None Full Exam - General 1994 Respiratory auscultation Diffuse: expiratory wheezes 01/30/2018 None Full Exam - General 1994 Respiratory auscultation Diffuse: rhonchi 01/30/2018 None Full Exam - General 1994 Lymphatic neck nodes Overall: anterior cervical chain benign 01/30/2018 None Full Exam - General 1994 Lymphatic neck nodes Overall: posterior cervical chain benign 01/30/2018 None Full Exam - General 1994 Neurologic cranial nerves Overall: crainial nerves 2 - 12 grossly intact 01/30/2018 None Full Exam - Dermatology Constitutional general appearance Overall: well nourished 01/14/2018 None Full Exam - Dermatology Constitutional general appearance Overall: well developed 01/14/2018 None Full Exam - Dermatology Constitutional general appearance Overall: in no acute distress 01/14/2018 None Full Exam - Dermatology Constitutional general appearance Overall: of normal body habitus 01/14/2018 None Full Exam - Dermatology Constitutional general appearance Overall: well groomed 01/14/2018 None Full Exam - Dermatology Psychiatric orientation Overall: oriented to person, place and time 01/14/2018 None Full Exam - Dermatology Integument insp & palp - left lower extremity Lesion: papule 01/14/2018 None Full Exam - Dermatology Integument insp & palp - left lower extremity Distribution: localized 01/14/2018 None Full Exam - Dermatology Integument insp & palp - left lower extremity Location: on the calf 01/14/2018 None Full Exam - Dermatology Integument insp & palp - left lower extremity Color: erythematous 01/14/2018 None Full Exam - Dermatology Respiratory auscultation Overall: breath sounds clear bilaterally 01/14/2018 None Full Exam - Dermatology Respiratory respiratory effort/rhythm Overall: no retractions 01/14/2018 None Full Exam - Dermatology Respiratory respiratory effort/rhythm Overall: normal rate 01/14/2018 None Full Exam - General 1994 Constitutional general appearance Overall: well developed 01/13/2018 None Full Exam - General 1994 Constitutional general appearance Overall: in no acute distress 01/13/2018 None Full Exam - General 1994 Constitutional general appearance Overall: well nourished 01/13/2018 None Full Exam - General 1994 Constitutional general appearance Nourishment: thin 01/13/2018 None Full Exam - General 1994 Eyes conjunctiva/eyelids Overall: conjunctiva clear 01/13/2018 None Full Exam - General 1994 Eyes conjunctiva/eyelids Overall: cornea clear 01/13/2018 None Full Exam - General 1994 Eyes conjunctiva/eyelids Overall: eyelids normal 01/13/2018 None Full Exam - General 1994 Eyes pupils and irises Overall: pupils equal, round, reactive to light and accomodation 01/13/2018 None Full Exam - General 1994 Ears/Nose/Throat otoscopic exam Overall: external auditory canals clear 01/13/2018 None Full Exam - General 1994 Ears/Nose/Throat otoscopic exam Overall: tympanic membranes clear 01/13/2018 None Full Exam - General 1994 Ears/Nose/Throat lips/teeth/gingiva Overall: benign lips 01/13/2018 None Full Exam - General 1994 Ears/Nose/Throat oral cavity/pharynx/larynx Overall: oral mucosa clear 01/13/2018 None Full Exam - General 1994 Ears/Nose/Throat oral cavity/pharynx/larynx Overall: oropharyngeal mucosa clear 01/13/2018 None Full Exam - General 1994 Respiratory auscultation Diffuse: diminished 01/13/2018 None Full Exam - General 1994 Respiratory respiratory effort/rhythm Overall: no retractions 01/13/2018 None Full Exam - General 1994 Respiratory respiratory effort/rhythm Overall: normal rate 01/13/2018 None Full Exam - General 1994 Cardiovascular auscultation of heart Overall: regular rate 01/13/2018 None Full Exam - General 1994 Cardiovascular auscultation of heart Overall: normal heart sounds 01/13/2018 None Full Exam - General 1994 Musculoskeletal gait and station Overall: normal gait 01/13/2018 None Full Exam - General 1994 Musculoskeletal gait and station Overall: normal station 01/13/2018 None Full Exam - General 1994 Musculoskeletal head and neck Overall: head atraumatic 01/13/2018 None Full Exam - General 1994 Psychiatric orientation/consciousness Overall: oriented to person, place and time 01/13/2018 None Full Exam - General 1994 Psychiatric mood and affect Overall: normal mood and affect 01/13/2018 None Full Exam - General 1994 Psychiatric appearance Overall: well-groomed, good eye contact 01/13/2018 None Full Exam - General 1994 Integument inspection of skin Overall: few scattered moles, no gross abnormalities 01/13/2018 None Full Exam - General 1994 Constitutional general appearance Overall: well developed 11/19/2017 None Full Exam - General 1994 Constitutional general appearance Overall: in no acute distress 11/19/2017 None Full Exam - General 1994 Constitutional general appearance Overall: well nourished 11/19/2017 None Full Exam - General 1994 Constitutional general appearance Nourishment: thin 11/19/2017 None Full Exam - General 1994 Eyes conjunctiva/eyelids Overall: conjunctiva clear 11/19/2017 None Full Exam - General 1994 Eyes conjunctiva/eyelids Overall: cornea clear 11/19/2017 None Full Exam - General 1994 Eyes conjunctiva/eyelids Overall: eyelids normal 11/19/2017 None Full Exam - General 1994 Eyes pupils and irises Overall: pupils equal, round, reactive to light and accomodation 11/19/2017 None Full Exam - General 1994 Ears/Nose/Throat otoscopic exam Overall: external auditory canals clear 11/19/2017 None Full Exam - General 1994 Ears/Nose/Throat otoscopic exam Overall: tympanic membranes clear 11/19/2017 None Full Exam - General 1994 Ears/Nose/Throat lips/teeth/gingiva Overall: benign lips 11/19/2017 None Full Exam - General 1994 Ears/Nose/Throat lips/teeth/gingiva Overall: normal dentition 11/19/2017 None Full Exam - General 1994 Ears/Nose/Throat lips/teeth/gingiva Overall: benign gingiva 11/19/2017 None Full Exam - General 1994 Ears/Nose/Throat lips/teeth/gingiva Overall: no masses 11/19/2017 None Full Exam - General 1994 Ears/Nose/Throat oral cavity/pharynx/larynx Overall: oral mucosa clear 11/19/2017 None Full Exam - General 1994 Ears/Nose/Throat oral cavity/pharynx/larynx Overall: oropharyngeal mucosa clear 11/19/2017 None Full Exam - General 1994 Ears/Nose/Throat oral cavity/pharynx/larynx Overall: no masses 11/19/2017 None Full Exam - General 1994 Neck thyroid Overall: normal size 05/2018 None Full Exam - General 1994 Neck thyroid Overall: normal consistency 11/19/2017 None Full Exam - General 1994 Neck thyroid Overall: nontender 11/19 None Full Exam - General 1994 Neck thyroid Overall: no mass lesions 11/19/2017 None Full Exam - General 1994 Neck inspection of neck Overall: normal size 11/19/2017 None Full Exam - General 1994 Neck inspection of neck Overall: normal appearance 11/19/2017 None Full Exam - General 1994 Neck inspection of neck Overall: no masses 11/19/2017 None Full Exam - General 1994 Neck inspection of neck Overall: absence of swelling 11/19/2017 None Full Exam - General 1994 Neck inspection of neck Overall: normal tracheal position 11/19/2017 None Full Exam - General 1994 Respiratory auscultation Diffuse: diminished 11/19/2017 None Full Exam - General 1994 Respiratory respiratory effort/rhythm Overall: no retractions 11/19/2017 None Full Exam - General 1994 Respiratory respiratory effort/rhythm Overall: normal rate 11/19/2017 None Full Exam - General 1994 Cardiovascular extremities Overall: no clubbing 11/19/2017 None Full Exam - General 1994 Cardiovascular auscultation of heart Overall: regular rate 11/19/2017 None Full Exam - General 1994 Cardiovascular auscultation of heart Overall: normal heart sounds 11/19/2017 None Full Exam - General 1994 Cardiovascular auscultation of heart Overall: no murmurs 11/19/2017 None Full Exam - General 1994 Abdomen abdominal exam Overall: normal bowel sounds 11/19/2017 None Full Exam - General 1994 Abdomen abdominal exam Contour: flat 11/19/2017 None Full Exam - General 1994 Abdomen abdominal exam Epigastric: no guarding 11/19/2017 None Full Exam - General 1994 Abdomen abdominal exam Epigastric: no rebound tenderness 11/19/2017 None Full Exam - General 1994 Abdomen abdominal exam Epigastric: no mass lesions 11/19/2017 None Full Exam - General 1994 Musculoskeletal gait and station Overall: normal gait 11/19/2017 None Full Exam - General 1994 Musculoskeletal gait and station Overall: normal station 11/19/2017 None Full Exam - General 1994 Psychiatric orientation/consciousness Overall: oriented to person, place and time 11/19/2017 None Full Exam - General 1994 Psychiatric mood and affect Overall: normal mood and affect 11/19/2017 None Full Exam - General 1994 Psychiatric appearance Overall: well-groomed, good eye contact 11/19/2017 None Full Exam - General 1994 Constitutional general appearance Overall: well developed 10/02/2017 None Full Exam - General 1994 Constitutional general appearance Overall: in no acute distress 10/02/2017 None Full Exam - General 1994 Constitutional general appearance Overall: well nourished 10/02/2017 None Full Exam - General 1994 Constitutional general appearance Nourishment: thin 10/02/2017 None Full Exam - General 1994 Eyes conjunctiva/eyelids Overall: conjunctiva clear 10/02/2017 None Full Exam - General 1994 Eyes conjunctiva/eyelids Overall: cornea clear 10/02/2017 None Full Exam - General 1994 Eyes conjunctiva/eyelids Overall: eyelids normal 10/02/2017 None Full Exam - General 1994 Eyes pupils and irises Overall: pupils equal, round, reactive to light and accomodation 10/02/2017 None Full Exam - General 1994 Ears/Nose/Throat otoscopic exam Overall: external auditory canals clear 10/02/2017 None Full Exam - General 1994 Ears/Nose/Throat otoscopic exam Overall: tympanic membranes clear 10/02/2017 None Full Exam - General 1994 Ears/Nose/Throat lips/teeth/gingiva Overall: benign lips 10/02/2017 None Full Exam - General 1994 Ears/Nose/Throat oral cavity/pharynx/larynx Overall: oral mucosa clear 10/02/2017 None Full Exam - General 1994 Ears/Nose/Throat oral cavity/pharynx/larynx Overall: oropharyngeal mucosa clear 10/02/2017 None Full Exam - General 1994 Respiratory auscultation Diffuse: diminished 10/02/2017 None Full Exam - General 1994 Respiratory respiratory effort/rhythm Overall: no retractions 10/02/2017 None Full Exam - General 1994 Respiratory respiratory effort/rhythm Overall: normal rate 10/02/2017 None Full Exam - General 1994 Cardiovascular auscultation of heart Overall: regular rate 10/02/2017 None Full Exam - General 1994 Cardiovascular auscultation of heart Overall: normal heart sounds 10/02/2017 None Full Exam - General 1994 Musculoskeletal gait and station Overall: normal gait 10/02/2017 None Full Exam - General 1994 Musculoskeletal gait and station Overall: normal station 10/02/2017 None Full Exam - General 1994 Psychiatric orientation/consciousness Overall: oriented to person, place and time 10/02/2017 None Full Exam - General 1994 Psychiatric mood and affect Overall: normal mood and affect 10/02/2017 None Full Exam - General 1994 Psychiatric appearance Overall: well-groomed, good eye contact 10/02/2017 None Full Exam - General 1994 Musculoskeletal head and neck Overall: head atraumatic 10/02/2017 None Full Exam - General 1994 Musculoskeletal spine, ribs and pelvis Spine: tender @ lumbar spine 10/02/2017 None Full Exam - General 1994 Constitutional general appearance Overall: well developed 07/23/2017 None Full Exam - General 1994 Constitutional general appearance Overall: in no acute distress 07/23/2017 None Full Exam - General 1994 Constitutional general appearance Overall: well nourished 07/23/2017 None Full Exam - General 1994 Constitutional general appearance Nourishment: thin 07/23/2017 None Full Exam - General 1994 Eyes conjunctiva/eyelids Overall: conjunctiva clear 07/23/2017 None Full Exam - General 1994 Eyes conjunctiva/eyelids Overall: cornea clear 07/23/2017 None Full Exam - General 1994 Eyes conjunctiva/eyelids Overall: eyelids normal 07/23/2017 None Full Exam - General 1994 Eyes pupils and irises Overall: pupils equal, round, reactive to light and accomodation 07/23/2017 None Full Exam - General 1994 Ears/Nose/Throat lips/teeth/gingiva Overall: benign lips 07/23/2017 None Full Exam - General 1994 Ears/Nose/Throat lips/teeth/gingiva Overall: normal dentition 07/23/2017 None Full Exam - General 1994 Ears/Nose/Throat lips/teeth/gingiva Overall: benign gingiva 07/23/2017 None Full Exam - General 1994 Ears/Nose/Throat lips/teeth/gingiva Overall: no masses 07/23/2017 None Full Exam - General 1994 Ears/Nose/Throat oral cavity/pharynx/larynx Overall: oral mucosa clear 07/23/2017 None Full Exam - General 1994 Ears/Nose/Throat oral cavity/pharynx/larynx Overall: oropharyngeal mucosa clear 07/23/2017 None Full Exam - General 1994 Ears/Nose/Throat oral cavity/pharynx/larynx Overall: no masses 07/23/2017 None Full Exam - General 1994 Neck thyroid Overall: normal size 07/2017 None Full Exam - General 1994 Neck thyroid Overall: normal consistency 07/23/2017 None Full Exam - General 1994 Neck thyroid Overall: nontender 07/23 None Full Exam - General 1994 Neck thyroid Overall: no mass lesions 07/23/2017 None Full Exam - General 1994 Neck inspection of neck Overall: normal size 07/23/2017 None Full Exam - General 1994 Neck inspection of neck Overall: normal appearance 07/23/2017 None Full Exam - General 1994 Neck inspection of neck Overall: no masses 07/23/2017 None Full Exam - General 1994 Neck inspection of neck Overall: absence of swelling 07/23/2017 None Full Exam - General 1994 Neck inspection of neck Overall: normal tracheal position 07/23/2017 None Full Exam - General 1994 Respiratory respiratory effort/rhythm Overall: no retractions 07/23/2017 None Full Exam - General 1994 Respiratory respiratory effort/rhythm Overall: normal rate 07/23/2017 None Full Exam - General 1994 Cardiovascular extremities Overall: no clubbing 07/23/2017 None Full Exam - General 1994 Cardiovascular auscultation of heart Overall: regular rate 07/23/2017 None Full Exam - General 1994 Cardiovascular auscultation of heart Overall: normal heart sounds 07/23/2017 None Full Exam - General 1994 Cardiovascular auscultation of heart Overall: no murmurs 07/23/2017 None Full Exam - General 1994 Abdomen abdominal exam Overall: normal bowel sounds 07/23/2017 None Full Exam - General 1994 Abdomen abdominal exam Contour: flat 07/23/2017 None Full Exam - General 1994 Abdomen abdominal exam Epigastric: no guarding 07/23/2017 None Full Exam - General 1994 Abdomen abdominal exam Epigastric: no rebound tenderness 07/23/2017 None Full Exam - General 1994 Abdomen abdominal exam Epigastric: no mass lesions 07/23/2017 None Full Exam - General 1994 Musculoskeletal gait and station Overall: normal gait 07/23/2017 None Full Exam - General 1994 Musculoskeletal gait and station Overall: normal station 07/23/2017 None Full Exam - General 1994 Psychiatric orientation/consciousness Overall: oriented to person, place and time 07/23/2017 None Full Exam - General 1994 Psychiatric mood and affect Overall: normal mood and affect 07/23/2017 None Full Exam - General 1994 Psychiatric appearance Overall: well-groomed, good eye contact 07/23/2017 None Full Exam - General 1994 Respiratory auscultation Diffuse: diminished 07/23/2017 None Full Exam - General 1994 Ears/Nose/Throat otoscopic exam Overall: tympanic membranes clear 07/23/2017 None Full Exam - General 1994 Ears/Nose/Throat otoscopic exam Overall: external auditory canals clear 07/23/2017 None Full Exam - General 1994 Constitutional general appearance Overall: well developed 04/25/2017 None Full Exam - General 1994 Constitutional general appearance Overall: in no acute distress 04/25/2017 None Full Exam - General 1994 Constitutional general appearance Overall: well nourished 04/25/2017 None Full Exam - General 1994 Constitutional general appearance Nourishment: thin 04/25/2017 None Full Exam - General 1994 Eyes conjunctiva/eyelids Overall: conjunctiva clear 04/25/2017 None Full Exam - General 1994 Eyes conjunctiva/eyelids Overall: cornea clear 04/25/2017 None Full Exam - General 1994 Eyes conjunctiva/eyelids Overall: eyelids normal 04/25/2017 None Full Exam - General 1994 Eyes pupils and irises Overall: pupils equal, round, reactive to light and accomodation 04/25/2017 None Full Exam - General 1994 Ears/Nose/Throat otoscopic exam External auditory canal: complete cerumen impaction 04/25/2017 None Full Exam - General 1994 Ears/Nose/Throat otoscopic exam Tympanic membrane: not visualized 04/25/2017 None Full Exam - General 1994 Ears/Nose/Throat lips/teeth/gingiva Overall: benign lips 04/25/2017 None Full Exam - General 1994 Ears/Nose/Throat lips/teeth/gingiva Overall: normal dentition 04/25/2017 None Full Exam - General 1994 Ears/Nose/Throat lips/teeth/gingiva Overall: benign gingiva 04/25/2017 None Full Exam - General 1994 Ears/Nose/Throat lips/teeth/gingiva Overall: no masses 04/25/2017 None Full Exam - General 1994 Ears/Nose/Throat oral cavity/pharynx/larynx Overall: oral mucosa clear 04/25/2017 None Full Exam - General 1994 Ears/Nose/Throat oral cavity/pharynx/larynx Overall: oropharyngeal mucosa clear 04/25/2017 None Full Exam - General 1994 Ears/Nose/Throat oral cavity/pharynx/larynx Overall: no masses 04/25/2017 None Full Exam - General 1994 Neck thyroid Overall: normal size None Full Exam - General 1994 Neck thyroid Overall: normal consistency 04/25/2017 None Full Exam - General 1994 Neck thyroid Overall: nontender 04/25 None Full Exam - General 1994 Neck thyroid Overall: no mass lesions 04/25/2017 None Full Exam - General 1994 Neck inspection of neck Overall: normal size 04/25/2017 None Full Exam - General 1994 Neck inspection of neck Overall: normal appearance 04/25/2017 None Full Exam - General 1994 Neck inspection of neck Overall: no masses 04/25/2017 None Full Exam - General 1994 Neck inspection of neck Overall: absence of swelling 04/25/2017 None Full Exam - General 1994 Neck inspection of neck Overall: normal tracheal position 04/25/2017 None Full Exam - General 1994 Respiratory respiratory effort/rhythm Overall: no retractions 04/25/2017 None Full Exam - General 1994 Respiratory respiratory effort/rhythm Overall: normal rate 04/25/2017 None Full Exam - General 1994 Cardiovascular extremities Overall: no clubbing 04/25/2017 None Full Exam - General 1994 Cardiovascular auscultation of heart Overall: regular rate 04/25/2017 None Full Exam - General 1994 Cardiovascular auscultation of heart Overall: normal heart sounds 04/25/2017 None Full Exam - General 1994 Cardiovascular auscultation of heart Overall: no murmurs 04/25/2017 None Full Exam - General 1994 Abdomen abdominal exam Overall: normal bowel sounds 04/25/2017 None Full Exam - General 1994 Abdomen abdominal exam Contour: flat 04/25/2017 None Full Exam - General 1994 Abdomen abdominal exam Epigastric: no guarding 04/25/2017 None Full Exam - General 1994 Abdomen abdominal exam Epigastric: no rebound tenderness 04/25/2017 None Full Exam - General 1994 Abdomen abdominal exam Epigastric: no mass lesions 04/25/2017 None Full Exam - General 1994 Musculoskeletal gait and station Overall: normal gait 04/25/2017 None Full Exam - General 1994 Musculoskeletal gait and station Overall: normal station 04/25/2017 None Full Exam - General 1994 Psychiatric orientation/consciousness Overall: oriented to person, place and time 04/25/2017 None Full Exam - General 1994 Psychiatric mood and affect Overall: normal mood and affect 04/25/2017 None Full Exam - General 1994 Psychiatric appearance Overall: well-groomed, good eye contact 04/25/2017 None Full Exam - General 1994 Respiratory auscultation Diffuse: rhonchi 04/25/2017 None Full Exam - General 1994 Respiratory auscultation Diffuse: expiratory wheezes 04/25/2017 None Full Exam - General 1994 Constitutional general appearance Overall: well developed 02/19/2017 None Full Exam - General 1994 Constitutional general appearance Overall: in no acute distress 02/19/2017 None Full Exam - General 1994 Constitutional general appearance Overall: well nourished 02/19/2017 None Full Exam - General 1994 Constitutional general appearance Nourishment: thin 02/19/2017 None Full Exam - General 1994 Eyes conjunctiva/eyelids Overall: conjunctiva clear 02/19/2017 None Full Exam - General 1994 Eyes conjunctiva/eyelids Overall: cornea clear 02/19/2017 None Full Exam - General 1994 Eyes conjunctiva/eyelids Overall: eyelids normal 02/19/2017 None Full Exam - General 1994 Eyes pupils and irises Overall: pupils equal, round, reactive to light and accomodation 02/19/2017 None Full Exam - General 1994 Ears/Nose/Throat otoscopic exam External auditory canal: complete cerumen impaction 02/19/2017 None Full Exam - General 1994 Ears/Nose/Throat otoscopic exam Tympanic membrane: not visualized 02/19/2017 None Full Exam - General 1994 Ears/Nose/Throat lips/teeth/gingiva Overall: benign lips 02/19/2017 None Full Exam - General 1994 Ears/Nose/Throat lips/teeth/gingiva Overall: normal dentition 02/19/2017 None Full Exam - General 1994 Ears/Nose/Throat lips/teeth/gingiva Overall: benign gingiva 02/19/2017 None Full Exam - General 1994 Ears/Nose/Throat lips/teeth/gingiva Overall: no masses 02/19/2017 None Full Exam - General 1994 Ears/Nose/Throat oral cavity/pharynx/larynx Overall: oral mucosa clear 02/19/2017 None Full Exam - General 1994 Ears/Nose/Throat oral cavity/pharynx/larynx Overall: oropharyngeal mucosa clear 02/19/2017 None Full Exam - General 1994 Ears/Nose/Throat oral cavity/pharynx/larynx Overall: no masses 02/19/2017 None Full Exam - General 1994 Neck thyroid Overall: normal size 06/2017 None Full Exam - General 1994 Neck thyroid Overall: normal consistency 02/19/2017 None Full Exam - General 1994 Neck thyroid Overall: nontender 02/19 None Full Exam - General 1994 Neck thyroid Overall: no mass lesions 02/19/2017 None Full Exam - General 1994 Neck inspection of neck Overall: normal size 02/19/2017 None Full Exam - General 1994 Neck inspection of neck Overall: normal appearance 02/19/2017 None Full Exam - General 1994 Neck inspection of neck Overall: no masses 02/19/2017 None Full Exam - General 1994 Neck inspection of neck Overall: absence of swelling 02/19/2017 None Full Exam - General 1994 Neck inspection of neck Overall: normal tracheal position 02/19/2017 None Full Exam - General 1994 Respiratory respiratory effort/rhythm Overall: no retractions 02/19/2017 None Full Exam - General 1994 Respiratory respiratory effort/rhythm Overall: normal rate 02/19/2017 None Full Exam - General 1994 Cardiovascular extremities Overall: no clubbing 02/19/2017 None Full Exam - General 1994 Cardiovascular auscultation of heart Overall: regular rate 02/19/2017 None Full Exam - General 1994 Cardiovascular auscultation of heart Overall: normal heart sounds 02/19/2017 None Full Exam - General 1994 Cardiovascular auscultation of heart Overall: no murmurs 02/19/2017 None Full Exam - General 1994 Abdomen abdominal exam Overall: normal bowel sounds 02/19/2017 None Full Exam - General 1994 Abdomen abdominal exam Contour: flat 02/19/2017 None Full Exam - General 1994 Abdomen abdominal exam Epigastric: no guarding 02/19/2017 None Full Exam - General 1994 Abdomen abdominal exam Epigastric: no rebound tenderness 02/19/2017 None Full Exam - General 1994 Abdomen abdominal exam Epigastric: no mass lesions 02/19/2017 None Full Exam - General 1994 Musculoskeletal gait and station Overall: normal gait 02/19/2017 None Full Exam - General 1994 Musculoskeletal gait and station Overall: normal station 02/19/2017 None Full Exam - General 1994 Psychiatric orientation/consciousness Overall: oriented to person, place and time 02/19/2017 None Full Exam - General 1994 Psychiatric mood and affect Overall: normal mood and affect 02/19/2017 None Full Exam - General 1994 Psychiatric appearance Overall: well-groomed, good eye contact 02/19/2017 None Full Exam - General 1994 Respiratory auscultation Basilar: diminished 02/19/2017 None Full Exam - General 1994 Respiratory auscultation Overall: breath sounds clear bilaterally 02/19/2017 None Full Exam - General 1994 Constitutional general appearance Overall: well developed 01/21/2017 None Full Exam - General 1994 Constitutional general appearance Overall: in no acute distress 01/21/2017 None Full Exam - General 1994 Constitutional general appearance Overall: well nourished 01/21/2017 None Full Exam - General 1994 Constitutional general appearance Nourishment: thin 01/21/2017 None Full Exam - General 1994 Eyes conjunctiva/eyelids Overall: conjunctiva clear 01/21/2017 None Full Exam - General 1994 Eyes conjunctiva/eyelids Overall: cornea clear 01/21/2017 None Full Exam - General 1994 Eyes conjunctiva/eyelids Overall: eyelids normal 01/21/2017 None Full Exam - General 1994 Eyes pupils and irises Overall: pupils equal, round, reactive to light and accomodation 01/21/2017 None Full Exam - General 1994 Ears/Nose/Throat otoscopic exam External auditory canal: complete cerumen impaction 01/21/2017 None Full Exam - General 1994 Ears/Nose/Throat otoscopic exam Tympanic membrane: not visualized 01/21/2017 None Full Exam - General 1994 Ears/Nose/Throat lips/teeth/gingiva Overall: benign lips 01/21/2017 None Full Exam - General 1994 Ears/Nose/Throat lips/teeth/gingiva Overall: normal dentition 01/21/2017 None Full Exam - General 1994 Ears/Nose/Throat lips/teeth/gingiva Overall: benign gingiva 01/21/2017 None Full Exam - General 1994 Ears/Nose/Throat lips/teeth/gingiva Overall: no masses 01/21/2017 None Full Exam - General 1994 Ears/Nose/Throat oral cavity/pharynx/larynx Overall: oral mucosa clear 01/21/2017 None Full Exam - General 1994 Ears/Nose/Throat oral cavity/pharynx/larynx Overall: oropharyngeal mucosa clear 01/21/2017 None Full Exam - General 1994 Ears/Nose/Throat oral cavity/pharynx/larynx Overall: no masses 01/21/2017 None Full Exam - General 1994 Neck thyroid Overall: normal size 07/2017 None Full Exam - General 1994 Neck thyroid Overall: normal consistency 01/21/2017 None Full Exam - General 1994 Neck thyroid Overall: nontender 01/21 None Full Exam - General 1994 Neck thyroid Overall: no mass lesions 01/21/2017 None Full Exam - General 1994 Neck inspection of neck Overall: normal size 01/21/2017 None Full Exam - General 1994 Neck inspection of neck Overall: normal appearance 01/21/2017 None Full Exam - General 1994 Neck inspection of neck Overall: no masses 01/21/2017 None Full Exam - General 1994 Neck inspection of neck Overall: absence of swelling 01/21/2017 None Full Exam - General 1994 Neck inspection of neck Overall: normal tracheal position 01/21/2017 None Full Exam - General 1994 Respiratory auscultation Diffuse: expiratory wheezes 01/21/2017 faint Full Exam - General 1994 Respiratory respiratory effort/rhythm Overall: no retractions 01/21/2017 None Full Exam - General 1994 Respiratory respiratory effort/rhythm Overall: normal rate 01/21/2017 None Full Exam - General 1994 Cardiovascular extremities Overall: no clubbing 01/21/2017 None Full Exam - General 1994 Cardiovascular auscultation of heart Overall: regular rate 01/21/2017 None Full Exam - General 1994 Cardiovascular auscultation of heart Overall: normal heart sounds 01/21/2017 None Full Exam - General 1994 Cardiovascular auscultation of heart Overall: no murmurs 01/21/2017 None Full Exam - General 1994 Abdomen abdominal exam Overall: normal bowel sounds 01/21/2017 None Full Exam - General 1994 Abdomen abdominal exam Contour: flat 01/21/2017 None Full Exam - General 1994 Abdomen abdominal exam Epigastric: no guarding 01/21/2017 None Full Exam - General 1994 Abdomen abdominal exam Epigastric: no rebound tenderness 01/21/2017 None Full Exam - General 1994 Abdomen abdominal exam Epigastric: no mass lesions 01/21/2017 None Full Exam - General 1994 Musculoskeletal gait and station Overall: normal gait 01/21/2017 None Full Exam - General 1994 Musculoskeletal gait and station Overall: normal station 01/21/2017 None Full Exam - General 1994 Psychiatric orientation/consciousness Overall: oriented to person, place and time 01/21/2017 None Full Exam - General 1994 Psychiatric mood and affect Overall: normal mood and affect 01/21/2017 None Full Exam - General 1994 Psychiatric appearance Overall: well-groomed, good eye contact 01/21/2017 None Full Exam - General 1994 Constitutional general appearance Overall: well developed 12/20/2016 None Full Exam - General 1994 Constitutional general appearance Overall: in no acute distress 12/20/2016 None Full Exam - General 1994 Constitutional general appearance Overall: well nourished 12/20/2016 None Full Exam - General 1994 Constitutional general appearance Nourishment: thin 12/20/2016 None Full Exam - General 1994 Eyes conjunctiva/eyelids Overall: conjunctiva clear 12/20/2016 None Full Exam - General 1994 Eyes conjunctiva/eyelids Overall: cornea clear 12/20/2016 None Full Exam - General 1994 Eyes conjunctiva/eyelids Overall: eyelids normal 12/20/2016 None Full Exam - General 1994 Eyes pupils and irises Overall: pupils equal, round, reactive to light and accomodation 12/20/2016 None Full Exam - General 1994 Ears/Nose/Throat otoscopic exam External auditory canal: complete cerumen impaction 12/20/2016 None Full Exam - General 1994 Ears/Nose/Throat otoscopic exam Tympanic membrane: not visualized 12/20/2016 None Full Exam - General 1994 Ears/Nose/Throat lips/teeth/gingiva Overall: benign lips 12/20/2016 None Full Exam - General 1994 Ears/Nose/Throat lips/teeth/gingiva Overall: normal dentition 12/20/2016 None Full Exam - General 1994 Ears/Nose/Throat lips/teeth/gingiva Overall: benign gingiva 12/20/2016 None Full Exam - General 1994 Ears/Nose/Throat lips/teeth/gingiva Overall: no masses 12/20/2016 None Full Exam - General 1994 Ears/Nose/Throat oral cavity/pharynx/larynx Overall: oral mucosa clear 12/20/2016 None Full Exam - General 1994 Ears/Nose/Throat oral cavity/pharynx/larynx Overall: oropharyngeal mucosa clear 12/20/2016 None Full Exam - General 1994 Ears/Nose/Throat oral cavity/pharynx/larynx Overall: no masses 12/20/2016 None Full Exam - General 1994 Neck thyroid Overall: normal size 06/2017 None Full Exam - General 1994 Neck thyroid Overall: normal consistency 12/20/2016 None Full Exam - General 1994 Neck thyroid Overall: nontender 12/20 None Full Exam - General 1994 Neck thyroid Overall: no mass lesions 12/20/2016 None Full Exam - General 1994 Neck inspection of neck Overall: normal size 12/20/2016 None Full Exam - General 1994 Neck inspection of neck Overall: normal appearance 12/20/2016 None Full Exam - General 1994 Neck inspection of neck Overall: no masses 12/20/2016 None Full Exam - General 1994 Neck inspection of neck Overall: absence of swelling 12/20/2016 None Full Exam - General 1994 Neck inspection of neck Overall: normal tracheal position 12/20/2016 None Full Exam - General 1994 Respiratory respiratory effort/rhythm Overall: no retractions 12/20/2016 None Full Exam - General 1994 Respiratory respiratory effort/rhythm Overall: normal rate 12/20/2016 None Full Exam - General 1994 Cardiovascular extremities Overall: no clubbing 12/20/2016 None Full Exam - General 1994 Cardiovascular auscultation of heart Overall: regular rate 12/20/2016 None Full Exam - General 1994 Cardiovascular auscultation of heart Overall: normal heart sounds 12/20/2016 None Full Exam - General 1994 Cardiovascular auscultation of heart Overall: no murmurs 12/20/2016 None Full Exam - General 1994 Abdomen abdominal exam Overall: normal bowel sounds 12/20/2016 None Full Exam - General 1994 Abdomen abdominal exam Contour: flat 12/20/2016 None Full Exam - General 1994 Abdomen abdominal exam Epigastric: no guarding 12/20/2016 None Full Exam - General 1994 Abdomen abdominal exam Epigastric: no rebound tenderness 12/20/2016 None Full Exam - General 1994 Abdomen abdominal exam Epigastric: no mass lesions 12/20/2016 None Full Exam - General 1994 Musculoskeletal gait and station Overall: normal gait 12/20/2016 None Full Exam - General 1994 Musculoskeletal gait and station Overall: normal station 12/20/2016 None Full Exam - General 1994 Psychiatric orientation/consciousness Overall: oriented to person, place and time 12/20/2016 None Full Exam - General 1994 Psychiatric mood and affect Overall: normal mood and affect 12/20/2016 None Full Exam - General 1994 Psychiatric appearance Overall: well-groomed, good eye contact 12/20/2016 None Full Exam - General 1994 Respiratory auscultation Diffuse: expiratory wheezes 12/20/2016 faint Full Exam - General 1994 Constitutional general appearance Overall: well developed 08/23/2016 None Full Exam - General 1994 Constitutional general appearance Overall: in no acute distress 08/23/2016 None Full Exam - General 1994 Constitutional general appearance Overall: well nourished 08/23/2016 None Full Exam - General 1994 Constitutional general appearance Nourishment: thin 08/23/2016 None Full Exam - General 1994 Eyes conjunctiva/eyelids Overall: conjunctiva clear 08/23/2016 None Full Exam - General 1994 Eyes conjunctiva/eyelids Overall: cornea clear 08/23/2016 None Full Exam - General 1994 Eyes conjunctiva/eyelids Overall: eyelids normal 08/23/2016 None Full Exam - General 1994 Eyes pupils and irises Overall: pupils equal, round, reactive to light and accomodation 08/23/2016 None Full Exam - General 1994 Ears/Nose/Throat otoscopic exam External auditory canal: complete cerumen impaction 08/23/2016 None Full Exam - General 1994 Ears/Nose/Throat otoscopic exam Tympanic membrane: not visualized 08/23/2016 None Full Exam - General 1994 Ears/Nose/Throat lips/teeth/gingiva Overall: benign lips 08/23/2016 None Full Exam - General 1994 Ears/Nose/Throat lips/teeth/gingiva Overall: normal dentition 08/23/2016 None Full Exam - General 1994 Ears/Nose/Throat lips/teeth/gingiva Overall: benign gingiva 08/23/2016 None Full Exam - General 1994 Ears/Nose/Throat lips/teeth/gingiva Overall: no masses 08/23/2016 None Full Exam - General 1994 Ears/Nose/Throat oral cavity/pharynx/larynx Overall: oral mucosa clear 08/23/2016 None Full Exam - General 1994 Ears/Nose/Throat oral cavity/pharynx/larynx Overall: oropharyngeal mucosa clear 08/23/2016 None Full Exam - General 1994 Ears/Nose/Throat oral cavity/pharynx/larynx Overall: no masses 08/23/2016 None Full Exam - General 1994 Neck thyroid Overall: normal size 07/2017 None Full Exam - General 1994 Neck thyroid Overall: normal consistency 08/23/2016 None Full Exam - General 1994 Neck thyroid Overall: nontender 08/23 None Full Exam - General 1994 Neck thyroid Overall: no mass lesions 08/23/2016 None Full Exam - General 1994 Neck inspection of neck Overall: normal size 08/23/2016 None Full Exam - General 1994 Neck inspection of neck Overall: normal appearance 08/23/2016 None Full Exam - General 1994 Neck inspection of neck Overall: no masses 08/23/2016 None Full Exam - General 1994 Neck inspection of neck Overall: absence of swelling 08/23/2016 None Full Exam - General 1994 Neck inspection of neck Overall: normal tracheal position 08/23/2016 None Full Exam - General 1994 Respiratory auscultation Overall: breath sounds clear bilaterally 08/23/2016 None Full Exam - General 1994 Respiratory respiratory effort/rhythm Overall: no retractions 08/23/2016 None Full Exam - General 1994 Respiratory respiratory effort/rhythm Overall: normal rate 08/23/2016 None Full Exam - General 1994 Cardiovascular extremities Overall: no clubbing 08/23/2016 None Full Exam - General 1994 Cardiovascular auscultation of heart Overall: regular rate 08/23/2016 None Full Exam - General 1994 Cardiovascular auscultation of heart Overall: normal heart sounds 08/23/2016 None Full Exam - General 1994 Cardiovascular auscultation of heart Overall: no murmurs 08/23/2016 None Full Exam - General 1994 Abdomen abdominal exam Overall: normal bowel sounds 08/23/2016 None Full Exam - General 1994 Abdomen abdominal exam Contour: flat 08/23/2016 None Full Exam - General 1994 Abdomen abdominal exam Epigastric: no guarding 08/23/2016 None Full Exam - General 1994 Abdomen abdominal exam Epigastric: no rebound tenderness 08/23/2016 None Full Exam - General 1994 Abdomen abdominal exam Epigastric: no mass lesions 08/23/2016 None Full Exam - General 1994 Musculoskeletal gait and station Overall: normal gait 08/23/2016 None Full Exam - General 1994 Musculoskeletal gait and station Overall: normal station 08/23/2016 None Full Exam - General 1994 Psychiatric orientation/consciousness Overall: oriented to person, place and time 08/23/2016 None Full Exam - General 1994 Psychiatric mood and affect Overall: normal mood and affect 08/23/2016 None Full Exam - General 1994 Psychiatric appearance Overall: well-groomed, good eye contact 08/23/2016 None Full Exam - General 1994 Constitutional general appearance Overall: well developed 05/22/2016 None Full Exam - General 1994 Constitutional general appearance Overall: in no acute distress 05/22/2016 None Full Exam - General 1994 Constitutional general appearance Overall: well nourished 05/22/2016 None Full Exam - General 1994 Constitutional general appearance Nourishment: thin 05/22/2016 None Full Exam - General 1994 Eyes conjunctiva/eyelids Overall: conjunctiva clear 05/22/2016 None Full Exam - General 1994 Eyes conjunctiva/eyelids Overall: cornea clear 05/22/2016 None Full Exam - General 1994 Eyes conjunctiva/eyelids Overall: eyelids normal 05/22/2016 None Full Exam - General 1994 Eyes pupils and irises Overall: pupils equal, round, reactive to light and accomodation 05/22/2016 None Full Exam - General 1994 Ears/Nose/Throat lips/teeth/gingiva Overall: benign lips 05/22/2016 None Full Exam - General 1994 Ears/Nose/Throat lips/teeth/gingiva Overall: normal dentition 05/22/2016 None Full Exam - General 1994 Ears/Nose/Throat lips/teeth/gingiva Overall: benign gingiva 05/22/2016 None Full Exam - General 1994 Ears/Nose/Throat lips/teeth/gingiva Overall: no masses 05/22/2016 None Full Exam - General 1994 Ears/Nose/Throat oral cavity/pharynx/larynx Overall: oral mucosa clear 05/22/2016 None Full Exam - General 1994 Ears/Nose/Throat oral cavity/pharynx/larynx Overall: oropharyngeal mucosa clear 05/22/2016 None Full Exam - General 1994 Ears/Nose/Throat oral cavity/pharynx/larynx Overall: no masses 05/22/2016 None Full Exam - General 1994 Neck thyroid Overall: normal size 06/2016 None Full Exam - General 1994 Neck thyroid Overall: normal consistency 05/22/2016 None Full Exam - General 1994 Neck thyroid Overall: nontender 05/22 None Full Exam - General 1994 Neck thyroid Overall: no mass lesions 05/22/2016 None Full Exam - General 1994 Neck inspection of neck Overall: normal size 05/22/2016 None Full Exam - General 1994 Neck inspection of neck Overall: normal appearance 05/22/2016 None Full Exam - General 1994 Neck inspection of neck Overall: no masses 05/22/2016 None Full Exam - General 1994 Neck inspection of neck Overall: absence of swelling 05/22/2016 None Full Exam - General 1994 Neck inspection of neck Overall: normal tracheal position 05/22/2016 None Full Exam - General 1994 Respiratory auscultation Overall: breath sounds clear bilaterally 05/22/2016 None Full Exam - General 1994 Respiratory respiratory effort/rhythm Overall: no retractions 05/22/2016 None Full Exam - General 1994 Respiratory respiratory effort/rhythm Overall: normal rate 05/22/2016 None Full Exam - General 1994 Cardiovascular extremities Overall: no clubbing 05/22/2016 None Full Exam - General 1994 Cardiovascular auscultation of heart Overall: regular rate 05/22/2016 None Full Exam - General 1994 Cardiovascular auscultation of heart Overall: normal heart sounds 05/22/2016 None Full Exam - General 1994 Cardiovascular auscultation of heart Overall: no murmurs 05/22/2016 None Full Exam - General 1994 Abdomen abdominal exam Overall: normal bowel sounds 05/22/2016 None Full Exam - General 1994 Abdomen abdominal exam Contour: flat 05/22/2016 None Full Exam - General 1994 Abdomen abdominal exam Epigastric: no guarding 05/22/2016 None Full Exam - General 1994 Abdomen abdominal exam Epigastric: no rebound tenderness 05/22/2016 None Full Exam - General 1994 Abdomen abdominal exam Epigastric: no mass lesions 05/22/2016 None Full Exam - General 1994 Musculoskeletal gait and station Overall: normal gait 05/22/2016 None Full Exam - General 1994 Musculoskeletal gait and station Overall: normal station 05/22/2016 None Full Exam - General 1994 Psychiatric orientation/consciousness Overall: oriented to person, place and time 05/22/2016 None Full Exam - General 1994 Psychiatric mood and affect Overall: normal mood and affect 05/22/2016 None Full Exam - General 1994 Psychiatric appearance Overall: well-groomed, good eye contact 05/22/2016 None Full Exam - General 1994 Integument inspection of skin Location: scalp 05/22/2016 AK scalp Full Exam - General 1994 Ears/Nose/Throat otoscopic exam External auditory canal: complete cerumen impaction 05/22/2016 None Full Exam - General 1994 Ears/Nose/Throat otoscopic exam Tympanic membrane: not visualized 05/22/2016 None Full Exam - General 1994 Constitutional general appearance Overall: well developed 02/24/2016 None Full Exam - General 1994 Constitutional general appearance Overall: in no acute distress 02/24/2016 None Full Exam - General 1994 Constitutional general appearance Overall: well nourished 02/24/2016 None Full Exam - General 1994 Constitutional general appearance Nourishment: thin 02/24/2016 None Full Exam - General 1994 Eyes conjunctiva/eyelids Overall: conjunctiva clear 02/24/2016 None Full Exam - General 1994 Eyes conjunctiva/eyelids Overall: cornea clear 02/24/2016 None Full Exam - General 1994 Eyes conjunctiva/eyelids Overall: eyelids normal 02/24/2016 None Full Exam - General 1994 Eyes pupils and irises Overall: pupils equal, round, reactive to light and accomodation 02/24/2016 None Full Exam - General 1994 Ears/Nose/Throat otoscopic exam Overall: external auditory canals clear 02/24/2016 None Full Exam - General 1994 Ears/Nose/Throat otoscopic exam Overall: tympanic membranes clear 02/24/2016 None Full Exam - General 1994 Ears/Nose/Throat lips/teeth/gingiva Overall: benign lips 02/24/2016 None Full Exam - General 1994 Ears/Nose/Throat lips/teeth/gingiva Overall: normal dentition 02/24/2016 None Full Exam - General 1994 Ears/Nose/Throat lips/teeth/gingiva Overall: benign gingiva 02/24/2016 None Full Exam - General 1994 Ears/Nose/Throat lips/teeth/gingiva Overall: no masses 02/24/2016 None Full Exam - General 1994 Ears/Nose/Throat oral cavity/pharynx/larynx Overall: oral mucosa clear 02/24/2016 None Full Exam - General 1994 Ears/Nose/Throat oral cavity/pharynx/larynx Overall: oropharyngeal mucosa clear 02/24/2016 None Full Exam - General 1994 Ears/Nose/Throat oral cavity/pharynx/larynx Overall: no masses 02/24/2016 None Full Exam - General 1994 Neck thyroid Overall: normal size None Full Exam - General 1994 Neck thyroid Overall: normal consistency 02/24/2016 None Full Exam - General 1994 Neck thyroid Overall: nontender 02/23 None Full Exam - General 1994 Neck thyroid Overall: no mass lesions 02/24/2016 None Full Exam - General 1994 Neck inspection of neck Overall: normal size 02/24/2016 None Full Exam - General 1994 Neck inspection of neck Overall: normal appearance 02/24/2016 None Full Exam - General 1994 Neck inspection of neck Overall: no masses 02/24/2016 None Full Exam - General 1994 Neck inspection of neck Overall: absence of swelling 02/24/2016 None Full Exam - General 1994 Neck inspection of neck Overall: normal tracheal position 02/24/2016 None Full Exam - General 1994 Respiratory auscultation Overall: breath sounds clear bilaterally 02/24/2016 None Full Exam - General 1994 Respiratory respiratory effort/rhythm Overall: no retractions 02/24/2016 None Full Exam - General 1994 Respiratory respiratory effort/rhythm Overall: normal rate 02/24/2016 None Full Exam - General 1994 Cardiovascular extremities Overall: no clubbing 02/24/2016 None Full Exam - General 1994 Cardiovascular auscultation of heart Overall: regular rate 02/24/2016 None Full Exam - General 1994 Cardiovascular auscultation of heart Overall: normal heart sounds 02/24/2016 None Full Exam - General 1994 Cardiovascular auscultation of heart Overall: no murmurs 02/24/2016 None Full Exam - General 1994 Abdomen abdominal exam Overall: normal bowel sounds 02/24/2016 None Full Exam - General 1994 Abdomen abdominal exam Contour: flat 02/24/2016 None Full Exam - General 1994 Abdomen abdominal exam Epigastric: no guarding 02/24/2016 None Full Exam - General 1994 Abdomen abdominal exam Epigastric: no rebound tenderness 02/24/2016 None Full Exam - General 1994 Abdomen abdominal exam Epigastric: no mass lesions 02/24/2016 None Full Exam - General 1994 Musculoskeletal gait and station Overall: normal gait 02/24/2016 None Full Exam - General 1994 Musculoskeletal gait and station Overall: normal station 02/24/2016 None Full Exam - General 1994 Integument inspection of skin Overall: no rash, lesions 02/24/2016 None Full Exam - General 1994 Psychiatric orientation/consciousness Overall: oriented to person, place and time 02/24/2016 None Full Exam - General 1994 Psychiatric mood and affect Overall: normal mood and affect 02/24/2016 None Full Exam - General 1994 Psychiatric appearance Overall: well-groomed, good eye contact 02/24/2016 None Full Exam - General 1994 Constitutional general appearance Overall: well nourished 01/27/2016 None Full Exam - General 1994 Constitutional general appearance Overall: well developed 01/27/2016 None Full Exam - General 1994 Constitutional general appearance Overall: in no acute distress 01/27/2016 None Full Exam - General 1994 Constitutional general appearance Nourishment: thin 01/27/2016 None Full Exam - General 1994 Eyes pupils and irises Overall: pupils equal, round, reactive to light and accomodation 01/27/2016 None Full Exam - General 1994 Eyes conjunctiva/eyelids Overall: conjunctiva clear 01/27/2016 None Full Exam - General 1994 Eyes conjunctiva/eyelids Overall: eyelids normal 01/27/2016 None Full Exam - General 1994 Eyes conjunctiva/eyelids Overall: cornea clear 01/27/2016 None Full Exam - General 1994 Ears/Nose/Throat oral cavity/pharynx/larynx Overall: oropharyngeal mucosa clear 01/27/2016 None Full Exam - General 1994 Ears/Nose/Throat oral cavity/pharynx/larynx Overall: no masses 01/27/2016 None Full Exam - General 1994 Ears/Nose/Throat oral cavity/pharynx/larynx Overall: oral mucosa clear 01/27/2016 None Full Exam - General 1994 Ears/Nose/Throat lips/teeth/gingiva Overall: benign gingiva 01/27/2016 None Full Exam - General 1994 Ears/Nose/Throat lips/teeth/gingiva Overall: no masses 01/27/2016 None Full Exam - General 1994 Ears/Nose/Throat lips/teeth/gingiva Overall: normal dentition 01/27/2016 None Full Exam - General 1994 Ears/Nose/Throat lips/teeth/gingiva Overall: benign lips 01/27/2016 None Full Exam - General 1994 Ears/Nose/Throat otoscopic exam Overall: tympanic membranes clear 01/27/2016 None Full Exam - General 1994 Ears/Nose/Throat otoscopic exam Overall: external auditory canals clear 01/27/2016 None Full Exam - General 1994 Neck thyroid Overall: nontender 01/26 None Full Exam - General 1994 Neck thyroid Overall: normal size None Full Exam - General 1994 Neck thyroid Overall: no mass lesions 01/27/2016 None Full Exam - General 1994 Neck thyroid Overall: normal consistency 01/27/2016 None Full Exam - General 1994 Neck inspection of neck Overall: normal appearance 01/27/2016 None Full Exam - General 1994 Neck inspection of neck Overall: normal tracheal position 01/27/2016 None Full Exam - General 1994 Neck inspection of neck Overall: absence of swelling 01/27/2016 None Full Exam - General 1994 Neck inspection of neck Overall: no masses 01/27/2016 None Full Exam - General 1994 Neck inspection of neck Overall: normal size 01/27/2016 None Full Exam - General 1994 Respiratory respiratory effort/rhythm Overall: normal rate 01/27/2016 None Full Exam - General 1994 Respiratory respiratory effort/rhythm Overall: no retractions 01/27/2016 None Full Exam - General 1994 Respiratory auscultation Overall: breath sounds clear bilaterally 01/27/2016 None Full Exam - General 1994 Cardiovascular extremities Overall: no clubbing 01/27/2016 None Full Exam - General 1994 Cardiovascular auscultation of heart Overall: regular rate 01/27/2016 None Full Exam - General 1994 Cardiovascular auscultation of heart Overall: normal heart sounds 01/27/2016 None Full Exam - General 1994 Cardiovascular auscultation of heart Overall: no murmurs 01/27/2016 None Full Exam - General 1994 Abdomen abdominal exam Overall: normal bowel sounds 01/27/2016 None Full Exam - General 1994 Abdomen abdominal exam Contour: flat 01/27/2016 None Full Exam - General 1994 Abdomen abdominal exam Epigastric: tender to palpation 01/27/2016 None Full Exam - General 1994 Abdomen abdominal exam Epigastric: no guarding 01/27/2016 None Full Exam - General 1994 Abdomen abdominal exam Epigastric: no rebound tenderness 01/27/2016 None Full Exam - General 1994 Abdomen abdominal exam Epigastric: no mass lesions 01/27/2016 None Full Exam - General 1994 Integument inspection of skin Overall: no rash, lesions 01/27/2016 None Full Exam - General 1994 Psychiatric orientation/consciousness Overall: oriented to person, place and time 01/27/2016 None Full Exam - General 1994 Psychiatric mood and affect Overall: normal mood and affect 01/27/2016 None Full Exam - General 1994 Psychiatric appearance Overall: well-groomed, good eye contact 01/27/2016 None Full Exam - General 1994 Musculoskeletal gait and station Overall: normal station 01/27/2016 None Full Exam - General 1994 Musculoskeletal gait and station Overall: normal gait 01/27/2016 None Full Exam - General 1994 Constitutional general appearance Development: well developed 11/25/2015 None Full Exam - General 1994 Constitutional general appearance Development: appears stated age 0411/25/2015 None Full Exam - General 1994 Constitutional general appearance Hygiene/Attention to Grooming: smells of tobacco 11/25/2015 None Full Exam - General 1994 Eyes conjunctiva/eyelids Overall: conjunctiva clear 11/25/2015 None Full Exam - General 1994 Eyes conjunctiva/eyelids Overall: eyelids normal 11/25/2015 None Full Exam - General 1994 Eyes pupils and irises Overall: pupils equal, round, reactive to light and accomodation 11/25/2015 None Full Exam - General 1994 Ears/Nose/Throat otoscopic exam Overall: external auditory canals clear 11/25/2015 None Full Exam - General 1994 Ears/Nose/Throat otoscopic exam Overall: tympanic membranes clear 11/25/2015 None Full Exam - General 1994 Neck thyroid Overall: normal size None Full Exam - General 1994 Neck thyroid Overall: normal consistency 11/25/2015 None Full Exam - General 1994 Respiratory auscultation Diffuse: expiratory wheezes 11/25/2015 faint Full Exam - General 1994 Cardiovascular auscultation of heart Overall: regular rate 11/25/2015 None Full Exam - General 1994 Cardiovascular auscultation of heart Overall: normal heart sounds 11/25/2015 None Full Exam - General 1994 Cardiovascular auscultation of heart Systolic murmur: holosystolic 11/25/2015 None Full Exam - General 1994 Abdomen abdominal exam Overall: no tenderness 11/25/2015 None Full Exam - General 1994 Abdomen abdominal exam Overall: normal bowel sounds 11/25/2015 None Full Exam - General 1994 Lymphatic neck nodes Overall: anterior cervical chain benign 11/25/2015 None Full Exam - General 1994 Lymphatic neck nodes Overall: posterior cervical chain benign 11/25/2015 None Full Exam - General 1994 Musculoskeletal head and neck Overall: head atraumatic 11/25/2015 None Full Exam - General 1994 Musculoskeletal head and neck Overall: cervical spine benign 11/25/2015 None Full Exam - General 1994 Neurologic deep tendon reflexes Overall: deep tendon reflexes intact 11/25/2015 None Full Exam - General 1994 Neurologic cranial nerves Overall: crainial nerves 2 - 12 grossly intact 11/25/2015 None Full Exam - General 1994 Neurologic motor Overall: normal bulk, tone 11/25/2015 None Full Exam - General 1994 Neurologic motor Fine motor movements: a normal exam 11/25/2015 None Full Exam - General 1994 Psychiatric orientation/consciousness Overall: oriented to person, place and time 11/25/2015 None Full Exam - General 1994 Psychiatric speech Overall: normal quality, no aphasia 11/25/2015 None Full Exam - General 1994 Constitutional general appearance Development: well developed 07/28/2015 None Full Exam - General 1994 Constitutional general appearance Development: appears stated age 1207/28/2015 None Full Exam - General 1994 Constitutional general appearance Hygiene/Attention to Grooming: smells of tobacco 07/28/2015 None Full Exam - General 1994 Eyes conjunctiva/eyelids Overall: conjunctiva clear 07/28/2015 None Full Exam - General 1994 Eyes conjunctiva/eyelids Overall: eyelids normal 07/28/2015 None Full Exam - General 1994 Eyes pupils and irises Overall: pupils equal, round, reactive to light and accomodation 07/28/2015 None Full Exam - General 1994 Ears/Nose/Throat otoscopic exam Overall: external auditory canals clear 07/28/2015 None Full Exam - General 1994 Ears/Nose/Throat otoscopic exam Overall: tympanic membranes clear 07/28/2015 None Full Exam - General 1994 Neck thyroid Overall: normal size None Full Exam - General 1994 Neck thyroid Overall: normal consistency 07/28/2015 None Full Exam - General 1994 Respiratory auscultation Diffuse: expiratory wheezes 07/28/2015 faint Full Exam - General 1994 Cardiovascular auscultation of heart Overall: regular rate 07/28/2015 None Full Exam - General 1994 Cardiovascular auscultation of heart Overall: normal heart sounds 07/28/2015 None Full Exam - General 1994 Cardiovascular auscultation of heart Systolic murmur: holosystolic 07/28/2015 None Full Exam - General 1994 Abdomen abdominal exam Overall: no tenderness 07/28/2015 None Full Exam - General 1994 Abdomen abdominal exam Overall: normal bowel sounds 07/28/2015 None Full Exam - General 1994 Lymphatic neck nodes Overall: anterior cervical chain benign 07/28/2015 None Full Exam - General 1994 Lymphatic neck nodes Overall: posterior cervical chain benign 07/28/2015 None Full Exam - General 1994 Musculoskeletal head and neck Overall: head atraumatic 07/28/2015 None Full Exam - General 1994 Musculoskeletal head and neck Overall: cervical spine benign 07/28/2015 None Full Exam - General 1994 Neurologic deep tendon reflexes Overall: deep tendon reflexes intact 07/28/2015 None Full Exam - General 1994 Neurologic cranial nerves Overall: crainial nerves 2 - 12 grossly intact 07/28/2015 None Full Exam - General 1994 Neurologic motor Overall: normal bulk, tone 07/28/2015 None Full Exam - General 1994 Neurologic motor Fine motor movements: a normal exam 07/28/2015 None Full Exam - General 1994 Psychiatric orientation/consciousness Overall: oriented to person, place and time 07/28/2015 None Full Exam - General 1994 Psychiatric speech Overall: normal quality, no aphasia 07/28/2015 None Full Exam - General 1994 Constitutional general appearance Development: well developed 05/26/2015 None Full Exam - General 1994 Constitutional general appearance Development: appears stated age 1005/26/2015 None Full Exam - General 1994 Constitutional general appearance Hygiene/Attention to Grooming: smells of tobacco 05/26/2015 None Full Exam - General 1994 Eyes conjunctiva/eyelids Overall: conjunctiva clear 05/26/2015 None Full Exam - General 1994 Eyes conjunctiva/eyelids Overall: eyelids normal 05/26/2015 None Full Exam - General 1994 Eyes pupils and irises Overall: pupils equal, round, reactive to light and accomodation 05/26/2015 None Full Exam - General 1994 Ears/Nose/Throat otoscopic exam Overall: external auditory canals clear 05/26/2015 None Full Exam - General 1994 Ears/Nose/Throat otoscopic exam Overall: tympanic membranes clear 05/26/2015 None Full Exam - General 1994 Neck thyroid Overall: normal size None Full Exam - General 1994 Neck thyroid Overall: normal consistency 05/26/2015 None Full Exam - General 1994 Respiratory auscultation Diffuse: expiratory wheezes 05/26/2015 faint Full Exam - General 1994 Cardiovascular auscultation of heart Overall: regular rate 05/26/2015 None Full Exam - General 1994 Cardiovascular auscultation of heart Overall: normal heart sounds 05/26/2015 None Full Exam - General 1994 Cardiovascular auscultation of heart Systolic murmur: holosystolic 05/26/2015 None Full Exam - General 1994 Abdomen abdominal exam Overall: no tenderness 05/26/2015 None Full Exam - General 1994 Abdomen abdominal exam Overall: normal bowel sounds 05/26/2015 None Full Exam - General 1994 Lymphatic neck nodes Overall: anterior cervical chain benign 05/26/2015 None Full Exam - General 1994 Lymphatic neck nodes Overall: posterior cervical chain benign 05/26/2015 None Full Exam - General 1994 Musculoskeletal head and neck Overall: head atraumatic 05/26/2015 None Full Exam - General 1994 Musculoskeletal head and neck Overall: cervical spine benign 05/26/2015 None Full Exam - General 1994 Neurologic deep tendon reflexes Overall: deep tendon reflexes intact 05/26/2015 None Full Exam - General 1994 Neurologic gait Conventional walking: unsteady 05/26/2015 None Full Exam - General 1994 Neurologic cranial nerves Overall: crainial nerves 2 - 12 grossly intact 05/26/2015 None Full Exam - General 1994 Neurologic motor Overall: normal bulk, tone 05/26/2015 None Full Exam - General 1994 Neurologic motor Fine motor movements: a normal exam 05/26/2015 None Full Exam - General 1994 Psychiatric orientation/consciousness Overall: oriented to person, place and time 05/26/2015 None Full Exam - General 1994 Psychiatric speech Overall: normal quality, no aphasia 05/26/2015 None Full Exam - General 1994 Constitutional general appearance Development: well developed 05/06/2015 None Full Exam - General 1994 Constitutional general appearance Development: appears stated age 0905/06/2015 None Full Exam - General 1994 Constitutional general appearance Hygiene/Attention to Grooming: smells of tobacco 05/06/2015 None Full Exam - General 1994 Eyes conjunctiva/eyelids Overall: conjunctiva clear 05/06/2015 None Full Exam - General 1994 Eyes conjunctiva/eyelids Overall: eyelids normal 05/06/2015 None Full Exam - General 1994 Eyes pupils and irises Overall: pupils equal, round, reactive to light and accomodation 05/06/2015 None Full Exam - General 1994 Ears/Nose/Throat otoscopic exam Overall: external auditory canals clear 05/06/2015 None Full Exam - General 1994 Ears/Nose/Throat otoscopic exam Overall: tympanic membranes clear 05/06/2015 None Full Exam - General 1994 Neck thyroid Overall: normal size None Full Exam - General 1994 Neck thyroid Overall: normal consistency 05/06/2015 None Full Exam - General 1994 Cardiovascular auscultation of heart Overall: regular rate 05/06/2015 None Full Exam - General 1994 Cardiovascular auscultation of heart Overall: normal heart sounds 05/06/2015 None Full Exam - General 1994 Cardiovascular auscultation of heart Systolic murmur: holosystolic 05/06/2015 None Full Exam - General 1994 Abdomen abdominal exam Overall: no tenderness 05/06/2015 None Full Exam - General 1994 Abdomen abdominal exam Overall: normal bowel sounds 05/06/2015 None Full Exam - General 1994 Lymphatic neck nodes Overall: anterior cervical chain benign 05/06/2015 None Full Exam - General 1994 Lymphatic neck nodes Overall: posterior cervical chain benign 05/06/2015 None Full Exam - General 1994 Musculoskeletal head and neck Overall: head atraumatic 05/06/2015 None Full Exam - General 1994 Musculoskeletal head and neck Overall: cervical spine benign 05/06/2015 None Full Exam - General 1994 Neurologic deep tendon reflexes Overall: deep tendon reflexes intact 05/06/2015 None Full Exam - General 1994 Neurologic gait Conventional walking: unsteady 05/06/2015 None Full Exam - General 1994 Neurologic cranial nerves Overall: crainial nerves 2 - 12 grossly intact 05/06/2015 None Full Exam - General 1994 Neurologic motor Overall: normal bulk, tone 05/06/2015 None Full Exam - General 1994 Neurologic motor Fine motor movements: a normal exam 05/06/2015 None Full Exam - General 1994 Psychiatric orientation/consciousness Overall: oriented to person, place and time 05/06/2015 None Full Exam - General 1994 Psychiatric speech Overall: normal quality, no aphasia 05/06/2015 None Full Exam - General 1994 Respiratory auscultation Diffuse: expiratory wheezes 05/06/2015 faint Full Exam - General 1994 Constitutional general appearance Development: well developed 04/25/2015 None Full Exam - General 1994 Constitutional general appearance Development: appears stated age 0904/25/2015 None Full Exam - General 1994 Constitutional general appearance Hygiene/Attention to Grooming: smells of tobacco 04/25/2015 None Full Exam - General 1994 Eyes conjunctiva/eyelids Overall: conjunctiva clear 04/25/2015 None Full Exam - General 1994 Eyes conjunctiva/eyelids Overall: eyelids normal 04/25/2015 None Full Exam - General 1994 Eyes pupils and irises Overall: pupils equal, round, reactive to light and accomodation 04/25/2015 None Full Exam - General 1994 Ears/Nose/Throat otoscopic exam Overall: external auditory canals clear 04/25/2015 None Full Exam - General 1994 Ears/Nose/Throat otoscopic exam Overall: tympanic membranes clear 04/25/2015 None Full Exam - General 1994 Neck thyroid Overall: normal size None Full Exam - General 1994 Neck thyroid Overall: normal consistency 04/25/2015 None Full Exam - General 1994 Respiratory auscultation Overall: breath sounds clear bilaterally 04/25/2015 None Full Exam - General 1994 Respiratory auscultation Diffuse: diminished 04/25/2015 None Full Exam - General 1994 Cardiovascular auscultation of heart Overall: regular rate 04/25/2015 None Full Exam - General 1994 Cardiovascular auscultation of heart Overall: normal heart sounds 04/25/2015 None Full Exam - General 1994 Cardiovascular auscultation of heart Systolic murmur: holosystolic 04/25/2015 None Full Exam - General 1994 Abdomen abdominal exam Overall: no tenderness 04/25/2015 None Full Exam - General 1994 Abdomen abdominal exam Overall: normal bowel sounds 04/25/2015 None Full Exam - General 1994 Lymphatic neck nodes Overall: anterior cervical chain benign 04/25/2015 None Full Exam - General 1994 Lymphatic neck nodes Overall: posterior cervical chain benign 04/25/2015 None Full Exam - General 1994 Musculoskeletal head and neck Overall: head atraumatic 04/25/2015 None Full Exam - General 1994 Musculoskeletal head and neck Overall: cervical spine benign 04/25/2015 None Full Exam - General 1994 Neurologic deep tendon reflexes Overall: deep tendon reflexes intact 04/25/2015 None Full Exam - General 1994 Neurologic gait Conventional walking: unsteady 04/25/2015 None Full Exam - General 1994 Neurologic cranial nerves Overall: crainial nerves 2 - 12 grossly intact 04/25/2015 None Full Exam - General 1994 Neurologic motor Overall: normal bulk, tone 04/25/2015 None Full Exam - General 1994 Neurologic motor Fine motor movements: a normal exam 04/25/2015 None Full Exam - General 1994 Psychiatric orientation/consciousness Overall: oriented to person, place and time 04/25/2015 None Full Exam - General 1994 Psychiatric speech Overall: normal quality, no aphasia 04/25/2015 None Full Exam - General 1994 Constitutional general appearance Development: well developed 04/12/2015 None Full Exam - General 1994 Constitutional general appearance Development: appears stated age 0904/12/2015 None Full Exam - General 1994 Constitutional general appearance Hygiene/Attention to Grooming: smells of tobacco 04/12/2015 None Full Exam - General 1994 Eyes conjunctiva/eyelids Overall: conjunctiva clear 04/12/2015 None Full Exam - General 1994 Eyes conjunctiva/eyelids Overall: eyelids normal 04/12/2015 None Full Exam - General 1994 Eyes pupils and irises Overall: pupils equal, round, reactive to light and accomodation 04/12/2015 None Full Exam - General 1994 Ears/Nose/Throat otoscopic exam Overall: external auditory canals clear 04/12/2015 None Full Exam - General 1994 Ears/Nose/Throat otoscopic exam Overall: tympanic membranes clear 04/12/2015 None Full Exam - General 1994 Neck thyroid Overall: normal size 08/2014 None Full Exam - General 1994 Neck thyroid Overall: normal consistency 04/12/2015 None Full Exam - General 1994 Respiratory auscultation Overall: breath sounds clear bilaterally 04/12/2015 None Full Exam - General 1994 Respiratory auscultation Diffuse: diminished 04/12/2015 None Full Exam - General 1994 Cardiovascular auscultation of heart Overall: regular rate 04/12/2015 None Full Exam - General 1994 Cardiovascular auscultation of heart Overall: normal heart sounds 04/12/2015 None Full Exam - General 1994 Cardiovascular auscultation of heart Systolic murmur: holosystolic 04/12/2015 None Full Exam - General 1994 Abdomen abdominal exam Overall: no tenderness 04/12/2015 None Full Exam - General 1994 Abdomen abdominal exam Overall: normal bowel sounds 04/12/2015 None Full Exam - General 1994 Lymphatic neck nodes Overall: anterior cervical chain benign 04/12/2015 None Full Exam - General 1994 Lymphatic neck nodes Overall: posterior cervical chain benign 04/12/2015 None Full Exam - General 1994 Musculoskeletal head and neck Overall: head atraumatic 04/12/2015 None Full Exam - General 1994 Musculoskeletal head and neck Overall: cervical spine benign 04/12/2015 None Full Exam - General 1994 Neurologic deep tendon reflexes Overall: deep tendon reflexes intact 04/12/2015 None Full Exam - General 1994 Neurologic gait Conventional walking: unsteady 04/12/2015 None Full Exam - General 1994 Neurologic cranial nerves Overall: crainial nerves 2 - 12 grossly intact 04/12/2015 None Full Exam - General 1994 Neurologic motor Overall: normal bulk, tone 04/12/2015 None Full Exam - General 1994 Neurologic motor Fine motor movements: a normal exam 04/12/2015 None Full Exam - General 1994 Psychiatric orientation/consciousness Overall: oriented to person, place and time 04/12/2015 None Full Exam - General 1994 Psychiatric speech Overall: normal quality, no aphasia 04/12/2015 None Full Exam - General 1994 Integument inspection of skin Location: ear 04/12/2015 AK left ear Full Exam - General 1994 Constitutional general appearance Development: well developed 03/24/2015 None Full Exam - General 1994 Constitutional general appearance Development: appears stated age 0803/24/2015 None Full Exam - General 1994 Constitutional general appearance Hygiene/Attention to Grooming: smells of tobacco 03/24/2015 None Full Exam - General 1994 Eyes conjunctiva/eyelids Overall: conjunctiva clear 03/24/2015 None Full Exam - General 1994 Eyes conjunctiva/eyelids Overall: eyelids normal 03/24/2015 None Full Exam - General 1994 Eyes pupils and irises Overall: pupils equal, round, reactive to light and accomodation 03/24/2015 None Full Exam - General 1994 Ears/Nose/Throat otoscopic exam Overall: tympanic membranes clear 03/24/2015 None Full Exam - General 1994 Neck thyroid Overall: normal size None Full Exam - General 1994 Neck thyroid Overall: normal consistency 03/24/2015 None Full Exam - General 1994 Respiratory auscultation Overall: breath sounds clear bilaterally 03/24/2015 None Full Exam - General 1994 Respiratory auscultation Diffuse: diminished 03/24/2015 None Full Exam - General 1994 Cardiovascular auscultation of heart Overall: regular rate 03/24/2015 None Full Exam - General 1994 Cardiovascular auscultation of heart Overall: normal heart sounds 03/24/2015 None Full Exam - General 1994 Cardiovascular auscultation of heart Systolic murmur: holosystolic 03/24/2015 None Full Exam - General 1994 Abdomen abdominal exam Overall: no tenderness 03/24/2015 None Full Exam - General 1994 Abdomen abdominal exam Overall: normal bowel sounds 03/24/2015 None Full Exam - General 1994 Lymphatic neck nodes Overall: anterior cervical chain benign 03/24/2015 None Full Exam - General 1994 Lymphatic neck nodes Overall: posterior cervical chain benign 03/24/2015 None Full Exam - General 1994 Musculoskeletal head and neck Overall: head atraumatic 03/24/2015 None Full Exam - General 1994 Musculoskeletal head and neck Overall: cervical spine benign 03/24/2015 None Full Exam - General 1994 Neurologic deep tendon reflexes Overall: deep tendon reflexes intact 03/24/2015 None Full Exam - General 1994 Neurologic gait Conventional walking: unsteady 03/24/2015 None Full Exam - General 1994 Neurologic cranial nerves Overall: crainial nerves 2 - 12 grossly intact 03/24/2015 None Full Exam - General 1994 Neurologic motor Overall: normal bulk, tone 03/24/2015 None Full Exam - General 1994 Neurologic motor Fine motor movements: a normal exam 03/24/2015 None Full Exam - General 1994 Psychiatric orientation/consciousness Overall: oriented to person, place and time 03/24/2015 None Full Exam - General 1994 Psychiatric speech Overall: normal quality, no aphasia 03/24/2015 None Full Exam - General 1994 Ears/Nose/Throat otoscopic exam Overall: external auditory canals clear 03/24/2015 None Full Exam - General 1994 Integument inspection of skin Location: scalp 03/24/2015 sutures posterior scalp d ry and intact Full Exam - General 1994 Constitutional general appearance Development: well developed 03/07/2015 None Full Exam - General 1994 Constitutional general appearance Development: appears stated age 0703/07/2015 None Full Exam - General 1994 Constitutional general appearance Hygiene/Attention to Grooming: smells of tobacco 03/07/2015 None Full Exam - General 1994 Eyes conjunctiva/eyelids Overall: conjunctiva clear 03/07/2015 None Full Exam - General 1994 Eyes conjunctiva/eyelids Overall: eyelids normal 03/07/2015 None Full Exam - General 1994 Eyes pupils and irises Overall: pupils equal, round, reactive to light and accomodation 03/07/2015 None Full Exam - General 1994 Ears/Nose/Throat otoscopic exam Overall: external auditory canals clear 03/07/2015 None Full Exam - General 1994 Ears/Nose/Throat otoscopic exam Overall: tympanic membranes clear 03/07/2015 None Full Exam - General 1994 Neck thyroid Overall: normal size None Full Exam - General 1994 Neck thyroid Overall: normal consistency 03/07/2015 None Full Exam - General 1994 Respiratory auscultation Overall: breath sounds clear bilaterally 03/07/2015 None Full Exam - General 1994 Respiratory auscultation Diffuse: diminished 03/07/2015 None Full Exam - General 1994 Cardiovascular auscultation of heart Overall: regular rate 03/07/2015 None Full Exam - General 1994 Cardiovascular auscultation of heart Overall: normal heart sounds 03/07/2015 None Full Exam - General 1994 Cardiovascular auscultation of heart Systolic murmur: holosystolic 03/07/2015 None Full Exam - General 1994 Abdomen abdominal exam Overall: no tenderness 03/07/2015 None Full Exam - General 1994 Abdomen abdominal exam Overall: normal bowel sounds 03/07/2015 None Full Exam - General 1994 Lymphatic neck nodes Overall: anterior cervical chain benign 03/07/2015 None Full Exam - General 1994 Lymphatic neck nodes Overall: posterior cervical chain benign 03/07/2015 None Full Exam - General 1994 Musculoskeletal head and neck Overall: head atraumatic 03/07/2015 None Full Exam - General 1994 Musculoskeletal head and neck Overall: cervical spine benign 03/07/2015 None Full Exam - General 1994 Neurologic deep tendon reflexes Overall: deep tendon reflexes intact 03/07/2015 None Full Exam - General 1994 Neurologic gait Conventional walking: unsteady 03/07/2015 None Full Exam - General 1994 Neurologic cranial nerves Overall: crainial nerves 2 - 12 grossly intact 03/07/2015 None Full Exam - General 1994 Neurologic motor Overall: normal bulk, tone 03/07/2015 None Full Exam - General 1994 Neurologic motor Fine motor movements: a normal exam 03/07/2015 None Full Exam - General 1994 Psychiatric orientation/consciousness Overall: oriented to person, place and time 03/07/2015 None Full Exam - General 1994 Psychiatric speech Overall: normal quality, no aphasia 03/07/2015 None Full Exam - General 1994 Integument inspection of skin Location: face 03/07/2015 on taoism, cheeks,actinic keratosis with irritation on left cheek - left taoism - croptherapy on these two lesions - and posterior scalp fleshy tender lesion approximately 1 x 1 cm with a depth of about 1/2 cm. Full Exam - General 1994 Constitutional general appearance Development: well developed 02/17/2015 None Full Exam - General 1994 Constitutional general appearance Development: appears stated age 0702/17/2015 None Full Exam - General 1994 Constitutional general appearance Hygiene/Attention to Grooming: smells of tobacco 02/17/2015 None Full Exam - General 1994 Eyes conjunctiva/eyelids Overall: conjunctiva clear 02/17/2015 None Full Exam - General 1994 Eyes conjunctiva/eyelids Overall: eyelids normal 02/17/2015 None Full Exam - General 1994 Eyes pupils and irises Overall: pupils equal, round, reactive to light and accomodation 02/17/2015 None Full Exam - General 1994 Neck thyroid Overall: normal size 04/2015 None Full Exam - General 1994 Neck thyroid Overall: normal consistency 02/17/2015 None Full Exam - General 1994 Respiratory auscultation Overall: breath sounds clear bilaterally 02/17/2015 None Full Exam - General 1994 Cardiovascular auscultation of heart Overall: regular rate 02/17/2015 None Full Exam - General 1994 Abdomen abdominal exam Overall: no tenderness 02/17/2015 None Full Exam - General 1994 Abdomen abdominal exam Overall: normal bowel sounds 02/17/2015 None Full Exam - General 1994 Lymphatic neck nodes Overall: anterior cervical chain benign 02/17/2015 None Full Exam - General 1994 Lymphatic neck nodes Overall: posterior cervical chain benign 02/17/2015 None Full Exam - General 1994 Musculoskeletal head and neck Overall: head atraumatic 02/17/2015 None Full Exam - General 1994 Musculoskeletal head and neck Overall: cervical spine benign 02/17/2015 None Full Exam - General 1994 Integument inspection of skin Overall: few scattered moles, no gross abnormalities 02/17/2015 None Full Exam - General 1994 Neurologic deep tendon reflexes Overall: deep tendon reflexes intact 02/17/2015 None Full Exam - General 1994 Neurologic gait Conventional walking: unsteady 02/17/2015 None Full Exam - General 1994 Neurologic cranial nerves Overall: crainial nerves 2 - 12 grossly intact 02/17/2015 None Full Exam - General 1994 Neurologic motor Overall: normal bulk, tone 02/17/2015 None Full Exam - General 1994 Neurologic motor Fine motor movements: a normal exam 02/17/2015 None Full Exam - General 1994 Psychiatric orientation/consciousness Overall: oriented to person, place and time 02/17/2015 None Full Exam - General 1994 Psychiatric speech Overall: normal quality, no aphasia 02/17/2015 None Full Exam - General 1994 Ears/Nose/Throat otoscopic exam Overall: external auditory canals clear 02/17/2015 None Full Exam - General 1994 Ears/Nose/Throat otoscopic exam Overall: tympanic membranes clear 02/17/2015 None Full Exam - General 1994 Respiratory auscultation Diffuse: diminished 02/17/2015 None Full Exam - General 1994 Cardiovascular auscultation of heart Overall: normal heart sounds 02/17/2015 None Full Exam - General 1994 Cardiovascular auscultation of heart Systolic murmur: holosystolic 02/17/2015 None Full Exam - ENT Constitutional general appearance Overall: well nourished 12/31/2014 None Full Exam - ENT Constitutional general appearance Overall: well developed 12/31/2014 None Full Exam - ENT Constitutional general appearance Overall: in no acute distress 12/31/2014 None Full Exam - ENT Neurologic orientation Overall: oriented to person, place a nd time 12/31/2014 None Full Exam - ENT Ears/Nose/Throat otoscopic exam Left external auditory canal: a norm al exam 12/31/2014 None Full Exam - ENT Ears/Nose/Throat otoscopic exam Left tympanic membrane: a normal exa m 12/31/2014 None Full Exam - ENT Ears/Nose/Throat otoscopic exam Right external auditory canal: a nor mal exam 12/31/2014 after cerumen removed Full Exam - ENT Ears/Nose/Throat otoscopic exam Right tympanic membrane: a normal ex am 12/31/2014 after cerumen removed Full Exam - General 1994 Psychiatric orientation/consciousness Overall: oriented to person, place and time 12/09/2014 None Full Exam - General 1994 Neurologic gait Conventional walking: unsteady 12/09/2014 None Full Exam - General 1994 Neurologic motor Overall: normal bulk, tone 12/09/2014 None Full Exam - General 1994 Neurologic motor Fine motor movements: a normal exam 12/09/2014 None Full Exam - General 1994 Neurologic cranial nerves Overall: crainial nerves 2 - 12 grossly intact 12/09/2014 None Full Exam - General 1994 Integument inspection of skin Overall: few scattered moles, no gross abnormalities 12/09/2014 None Full Exam - General 1994 Musculoskeletal head and neck Overall: head atraumatic 12/09/2014 None Full Exam - General 1994 Musculoskeletal head and neck Overall: cervical spine benign 12/09/2014 None Full Exam - General 1994 Lymphatic neck nodes Overall: anterior cervical chain benign 12/09/2014 None Full Exam - General 1994 Lymphatic neck nodes Overall: posterior cervical chain benign 12/09/2014 None Full Exam - General 1994 Abdomen abdominal exam Overall: no tenderness 12/09/2014 None Full Exam - General 1994 Abdomen abdominal exam Overall: normal bowel sounds 12/09/2014 None Full Exam - General 1994 Cardiovascular auscultation of heart Overall: regular rate 12/09/2014 None Full Exam - General 1994 Respiratory auscultation Overall: breath sounds clear bilaterally 12/09/2014 None Full Exam - General 1994 Neck thyroid Overall: normal size None Full Exam - General 1994 Neck thyroid Overall: normal consistency 12/09/2014 None Full Exam - General 1994 Ears/Nose/Throat otoscopic exam External auditory canal: partial cerumen occlusion 12/09/2014 Bilateral ear canals flushed with waterpik. Unable to remove all cerumen. Full Exam - General 1994 Eyes conjunctiva/eyelids Overall: conjunctiva clear 12/09/2014 None Full Exam - General 1994 Eyes conjunctiva/eyelids Overall: eyelids normal 12/09/2014 None Full Exam - General 1994 Eyes pupils and irises Overall: pupils equal, round, reactive to light and accomodation 12/09/2014 None Full Exam - General 1994 Constitutional general appearance Development: well developed 12/09/2014 None Full Exam - General 1994 Constitutional general appearance Development: appears stated age 0412/09/2014 None Full Exam - General 1994 Psychiatric speech Overall: normal quality, no aphasia 12/09/2014 None Full Exam - General 1994 Constitutional general appearance Hygiene/Attention to Grooming: smells of tobacco 12/09/2014 None Full Exam - General 1994 Ears/Nose/Throat otoscopic exam Tympanic membrane: not visualized 12/09/2014 None Full Exam - General 1994 Neurologic deep tendon reflexes Overall: deep tendon reflexes intact 12/09/2014 None Procedures Procedure Codes Date THER/PROPH/DIAG INJ SC/IM CPT-4: 82887 04/17/2019 THER/PROPH/DIAG INJ SC/IM CPT-4: 04354 03/31/2019 THER/PROPH/DIAG INJ SC/IM CPT-4: 06659 03/17/2019 THER/PROPH/DIAG INJ SC/IM CPT-4: 18797 03/04/2019 THER/PROPH/DIAG INJ SC/IM CPT-4: 14716 02/16/2019 THER/PROPH/DIAG INJ SC/IM CPT-4: 09530 01/30/2019 THER/PROPH/DIAG INJ SC/IM CPT-4: 19465 01/16/2019 THER/PROPH/DIAG INJ SC/IM CPT-4: 22747 01/01/2019 THER/PROPH/DIAG INJ SC/IM CPT-4: 70981 12/17/2018 THER/PROPH/DIAG INJ SC/IM CPT-4: 59219 12/02/2018 THER/PROPH/DIAG INJ SC/IM CPT-4: 39633 11/18/2018 THER/PROPH/DIAG INJ SC/IM CPT-4: 14546 11/04/2018 THER/PROPH/DIAG INJ SC/IM CPT-4: 15099 10/14/2018 THER/PROPH/DIAG INJ SC/IM CPT-4: 14351 10/03/2018 THER/PROPH/DIAG INJ SC/IM CPT-4: 05047 09/23/2018 THER/PROPH/DIAG INJ SC/IM CPT-4: 54357 09/02/2018 THER/PROPH/DIAG INJ SC/IM CPT-4: 81569 08/21/2018 THER/PROPH/DIAG INJ SC/IM CPT-4: 27835 08/08/2018 THER/PROPH/DIAG INJ SC/IM CPT-4: 69909 07/28/2018 THER/PROPH/DIAG INJ SC/IM CPT-4: 20001 07/16/2018 THER/PROPH/DIAG INJ SC/IM CPT-4: 40213 07/02/2018 PPPS, SUBSEQ VISIT CPT- 4: G0439 06/30/2018 THER/PROPH/DIAG INJ SC/IM CPT-4: 10733 06/24/2018 THER/PROPH/DIAG INJ SC/IM CPT-4: 37602 06/13/2018 ADMIN INFLUENZA VIRU S VAC CPT-4: G0008 06/06/2018 FLU VACC PRSV FREE I NC ANTIG CPT-4: 68587 06/06/2018 THER/PROPH/DIAG INJ SC/IM CPT-4: 13094 06/05/2018 THER/PROPH/DIAG INJ SC/IM CPT-4: 16631 05/30/2018 THER/PROPH/DIAG INJ SC/IM CPT-4: 65420 05/22/2018 THER/PROPH/DIAG INJ SC/IM CPT-4: 61483 05/12/2018 THER/PROPH/DIAG INJ SC/IM CPT-4: 36545 05/02/2018 THER/PROPH/DIAG INJ SC/IM CPT-4: 05669 04/24/2018 THER/PROPH/DIAG INJ SC/IM CPT-4: 24769 04/17/2018 KETOROLAC TROMETHAMI NE INJ CPT-4: J1885 03/07/2018 URINALYSIS NONAUTO W /O SCOPE CPT-4: 23214 03/07/2018 THER/PROPH/DIAG INJ SC/IM CPT-4: 31043 02/20/2018 TRIAMCINOLONE ACET I [place] NOS CPT-4: J3301 01/30/2018 THER/PROPH/DIAG INJ SC/IM CPT-4: 45259 01/17/2018 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 3-[address]: 087439946 CPT-4: G0436 04/25/2017 ADMIN INFLUENZA VIRU S VAC CPT-4: G0008 04/25/2017 ADMIN PNEUMOCOCCAL V ACCINE SNOMED CT: 58399158 CPT-4: G0009 04/25/2017 PNEUMOCOCCAL VACC [address]: 36418082 CPT-4: 79281 04/25/2017 FLU VACC PRSV FREE I NC ANTIG CPT-4: 27127 04/25/2017 ADMIN INFLUENZA VIRU S VAC CPT-4: G0008 05/22/2016 FLU VACC 4 TELLY 3 YRS PLUS IM Formatting Model/CDA Sections, Assigned to/Angela Clemons SNOMED CT: 66491900 CPT-4: 81332Sgwyqzr 05/22/2016 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 3-[address]: 982343811 CPT-4: G0436 11/25/2015 URINALYSIS NONAUTO W /O SCOPE CPT-4: 54556 05/09/2015 TRIAMCINOLONE ACET I [place] NOS CPT-4: J3301 04/12/2015 DESTRUCT PREMALG LESION CPT-4: 78996 03/07/2015 DESTRUCT PREMALG LES 2-14 CPT-4: 56962 03/07/2015 REMOVE IMPACTED EAR WAX UNI CPT-4: 49494 12/31/2014 THER/PROPH/DIAG INJ SC/IM CPT-4: 71322 12/23/2014 TRIAMCINOLONE ACET I [place] NOS CPT-4: J3301 12/23/2014 Vital Signs Date Vital 03/03/2019 Blood Pressure 1: 150/72 Code: 8480-6 BMI: 20.6 Code: 02746-4 Heart Rate 1: 63 bpm Height: 5'11" SpO2: 100% Weight: 147 lbs 8 oz 12/02/2018 Blood Pressure 1: 140/70 Code: 8480-6 BMI: 21.9 Code: 22359-0 Heart Rate 1: 61 bpm Height: 5'11" SpO2: 94% Weight: 157 lbs 10/17/2018 Blood Pressure 1: 124/54 Code: 8480-6 BMI: 21.9 Code: 50981-0 Heart Rate 1: 64 bpm Height: 5'11" SpO2: 93% Weight: 157 lbs 09/02/2018 Blood Pressure 1: 140/80 Code: 8480-6 BMI: 21.2 Code: 67490-5 Heart Rate 1: 68 bpm Height: 5'11" SpO2: 97% Weight: 152 lbs 06/30/2018 BMI: 21.8 Code: 72547-0 Height: 5'11" Weight: 156 lbs 06/06/2018 Blood Pressure 1: 128/76 Code: 8480-6 BMI: 22.0 Code: 58325-0 Heart Rate 1: 81 bpm Height: 5'11" SpO2: 92% Weight: 158 lbs 04/04/2018 Blood Pressure 1: 124/70 Code: 8480-6 BMI: 20.8 Code: 20835-3 Heart Rate 1: 65 bpm Height: 5'11" SpO2: 95% Weight: 149 lbs 03/07/2018 Blood Pressure 1: 148/70 Code: 8480-6 BMI: 21.2 Code: 61121-5 Heart Rate 1: 66 bpm Height: 5'11" SpO2: 94% Weight: 152 lbs 02/20/2018 Blood Pressure 1: 134/58 Code: 8480-6 BMI: 20.5 Code: 06522-0 Heart Rate 1: 61 bpm Height: 5'11" SpO2: 92% Weight: 147 lbs 01/30/2018 Blood Pressure 1: 158/68 Code: 8480-6 BMI: 21.5 Code: 95661-1 Heart Rate 1: 71 bpm Height: 5'11" SpO2: 92% Weight: 154 lbs 01/14/2018 Blood Pressure 1: 156/70 Code: 8480-6 Height: Weight: 01/13/2018 Blood Pressure 1: 148/62 Code: 8480-6 BMI: 20.9 Code: 73715-1 Heart Rate 1: 54 bpm Height: 5'11" SpO2: 97% Weight: 150 lbs 11/19/2017 Blood Pressure 1: 150/60 Code: 8480-6 BMI: 21.8 Code: 30921-7 Heart Rate 1: 63 bpm Height: 5'11" SpO2: 98% Weight: 156 lbs 10/02/2017 Blood Pressure 1: 168/60 Code: 8480-6 BMI: 21.9 Code: 57580-7 Heart Rate 1: 52 bpm Height: 5'11" SpO2: 97% Weight: 157 lbs 07/23/2017 Blood Pressure 1: 170/70 Code: 8480-6 BMI: 21.8 Code: 77468-1 Heart Rate 1: 65 bpm Height: 5'11" SpO2: 98% Weight: 156 lbs 04/25/2017 Blood Pressure 1: 138/60 Code: 8480-6 BMI: 21.6 Code: 47730-9 Heart Rate 1: 55 bpm Height: 5'11" SpO2: 93% Weight: 155 lbs 02/19/2017 Blood Pressure 1: 138/64 Code: 8480-6 BMI: 21.3 Code: 12905-4 Heart Rate 1: 52 bpm Height: 5'11" SpO2: 96% Weight: 152 lbs 8 oz 01/21/2017 Blood Pressure 1: 160/68 Code: 8480-6 BMI: 21.3 Code: 68557-2 Heart Rate 1: 62 bpm Height: 5'11" SpO2: 96% Weight: 153 lbs 12/20/2016 Blood Pressure 1: 124/66 Code: 8480-6 BMI: 21.5 Code: 66084-9 Height: 5'11" Weight: 154 lbs 08/23/2016 Blood Pressure 1: 142/52 Code: 8480-6 BMI: 21.2 Code: 78199-7 Heart Rate 1: 54 bpm Height: 5'11" SpO2: 96% Weight: 152 lbs 05/22/2016 Blood Pressure 1: 130/76 Code: 8480-6 BMI: 21.5 Code: 21590-9 Heart Rate 1: 78 bpm Height: 5'11" SpO2: 92% Weight: 154 lbs 02/24/2016 Blood Pressure 1: 128/80 Code: 8480-6 BMI: 21.2 Code: 45966-3 Heart Rate 1: 74 bpm Height: 5'11" SpO2: 96% Weight: 152 lbs 01/27/2016 Blood Pressure 1: 144/60 Code: 8480-6 BMI: 21.2 Code: 96154-0 Heart Rate 1: 74 bpm Height: 5'11" SpO2: 97% Weight: 152 lbs 11/25/2015 Blood Pressure 1: 110/52 Code: 8480-6 BMI: 21.9 Code: 78317-2 Heart Rate 1: 65 bpm Height: 5'11" SpO2: 92% Weight: 157 lbs 07/28/2015 Blood Pressure 1: 138/62 Code: 8480-6 BMI: 21.8 Code: 00346-9 Heart Rate 1: 63 bpm Height: 5'11" SpO2: 91% Weight: 156 lbs 05/26/2015 Blood Pressure 1: 120/58 Code: 8480-6 BMI: 21.5 Code: 39137-7 Heart Rate 1: 99 bpm Height: 5'11" SpO2: 96% Weight: 154 lbs 05/06/2015 Blood Pressure 1: 120/58 Code: 8480-6 BMI: 21.2 Code: 52060-3 Heart Rate 1: 66 bpm Height: 5'11" SpO2: 96% Weight: 152 lbs 04/25/2015 Blood Pressure 1: 136/62 Code: 8480-6 BMI: 21.2 Code: 52600-8 Heart Rate 1: 63 bpm Height: 5'11" SpO2: 97% Weight: 152 lbs 04/12/2015 Blood Pressure 1: 160/58 Code: 8480-6 BMI: 21.6 Code: 48051-0 Heart Rate 1: 62 bpm Height: 5'11" Weight: 155 lbs 03/24/2015 Blood Pressure 1: 138/68 Code: 8480-6 BMI: 22.0 Code: 93963-0 Heart Rate 1: 65 bpm Height: 5'11" SpO2: 96% Weight: 158 lbs 03/07/2015 Blood Pressure 1: 116/52 Code: 8480-6 BMI: 22.2 Code: 79627-9 Heart Rate 1: 64 bpm Height: 5'11" SpO2: 97% Weight: 159 lbs 02/17/2015 Blood Pressure 1: 148/58 Code: 8480-6 BMI: 21.3 Code: 59996-7 Heart Rate 1: 63 bpm Height: 5'11" SpO2: 97% Weight: 153 lbs 12/31/2014 Blood Pressure 1: 100/60 Code: 8480-6 BMI: 21.8 Code: 16315-0 Heart Rate 1: 68 bpm Height: 5'11" Weight: 156 lbs 12/23/2014 Blood Pressure 1: 148/64 Code: 8480-6 BMI: 21.9 Code: 26455-3 Heart Rate 1: 64 bpm Height: 5'11" Weight: 157 lbs 12/09/2014 Blood Pressure 1: 152/62 Code: 8480-6 Heart Rate 1: 58 bpm SpO2: 98% Weight: 159 lbs Functional Status No Functional Status data History of Present Illness Symptom Name Status Resu lt Effective Date Notes Quality insulin depend ent 03/03/2019 None Quality chronic 03/03/2019 None Severity mild 03/03/2019 None Alleviating Factors me dication 03/03/2019 None Alleviating Factors in sulin 03/03/2019 None Exacerbating Factors d iet 03/03/2019 None Nutrition regular diet 03/03/2019 None Pertinent Findings Den ies dizziness 03/03/2019 None Pertinent Findings Den ies dyspnea 03/03/2019 None Pertinent Findings Den ies nausea 03/03/2019 None Pertinent Findings Den ies numbness 03/03/2019 None Quality chronic 03/03/2019 None Quality primary hypert ension 03/03/2019 None Onset and Resolution o ngoing 03/03/2019 None Onset of Symptom durin g adulthood 03/03/2019 None Blood Pressure Values not checking blood pressure at home 03/03/2019 None Alleviating Factors me dication 03/03/2019 None Pertinent Findings edema 03/03/2019 in his feet Glucose monitoring twi ce daily 03/03/2019 None Test results Pt checki ng blood glucose at home, see readings 03/03/2019 None Quality insulin depend ent 12/02/2018 None Quality chronic 12/02/2018 None Alleviating Factors me dication 12/02/2018 None Alleviating Factors in sulin 12/02/2018 None Exacerbating Factors d iet 12/02/2018 None Nutrition regular diet 12/02/2018 None Pertinent Findings Den ies dizziness 12/02/2018 None Pertinent Findings Den ies dyspnea 12/02/2018 None Pertinent Findings Den ies nausea 12/02/2018 None Pertinent Findings Den ies numbness 12/02/2018 None Quality chronic 12/02/2018 None Quality primary hypert ension 12/02/2018 None Onset and Resolution o ngoing 12/02/2018 None Onset of Symptom durin g adulthood 12/02/2018 None Blood Pressure Values not checking blood pressure at home 12/02/2018 None Alleviating Factors me dication 12/02/2018 None Pertinent Findings edema 12/02/2018 in his feet Test results Pt checki ng blood glucose readings, did not bring results to clinic 12/02/2018 None Glucose monitoring twi ce daily 12/02/2018 None Severity mild 12/02/2018 None Quality constant 10/17/2018 None Quality worsening 10/17/2018 None Onset and Resolution s udden in onset 10/17/2018 None Onset of Symptom 1 wee ks ago 10/17/2018 None Limitation on Activities does not limit activities 10/17/2018 None Frequency of Episodes unchanged 10/17/2018 None Triggers activity 10/17/2018 None Quality insulin depend ent 09/02/2018 None Quality chronic 09/02/2018 None Alleviating Factors me dication 09/02/2018 None Alleviating Factors in sulin 09/02/2018 None Exacerbating Factors d iet 09/02/2018 None Nutrition regular diet 09/02/2018 None Pertinent Findings Den ies dizziness 09/02/2018 None Pertinent Findings Den ies dyspnea 09/02/2018 None Pertinent Findings Den ies nausea 09/02/2018 None Pertinent Findings Den ies numbness 09/02/2018 None Quality chronic 09/02/2018 None Quality primary hypert ension 09/02/2018 None Onset and Resolution o ngoing 09/02/2018 None Onset of Symptom durin g adulthood 09/02/2018 None Blood Pressure Values not checking blood pressure at home 09/02/2018 None Alleviating Factors me dication 09/02/2018 None Pertinent Findings edema 09/02/2018 in his feet Glucose monitoring twi ce daily 09/02/2018 None Test results Pt checki ng blood glucose readings, did not bring results to clinic 09/02/2018 None Annual Medicare Wellness Exam Alcohol Use does not drink any alcohol 06/30/2018 None Annual Medicare Wellness Exam Exerci se Habits exercises 3 days per week 06/30/2018 None Annual Medicare Wellness Exam Handli ng Stress usually makenzie effectively 06/30/2018 None Annual Medicare Wellness Exam Hemagl obin A-1C (self reported) high (8 or higher) 06/30/2018 None Annual Medicare Wellness Exam Blood Glucose (self reported) high (126 or higher) 06/30/2018 None Annual Medicare Wellness Exam Blood Pressure (self reported) diagnosed with hypertension 06/30/20 18 None Annual Medicare Wellness Exam Choles terol (self reported) desireable (below 200) 06/30/2018 None Annual Medicare Wellness Exam Depres carla (last 6 months) almost never 06/30/2018 None Annual Medicare Wellness Exam Depres carla or Hopelessness almost never 06/30/2018 None Annual Medicare Wellness Exam Descri be Your Health good 06/30/2018 None Annual Medicare Wellness Exam Intera ction with Friends yes 06/30/2018 None Annual Medicare Wellness Exam Intere sts & Pleasure almost all of the time 06/30/2018 None Annual Medicare Wellness Exam Life S atisfaction satisfied 06/30/2018 Non e Annual Medicare Wellness Exam Motor Vehicle Safety always fastens seat belt: y 06/30/20 18 None Annual Medicare Wellness Exam Smokin g and Tobacco Use cigarette smoker 06/30/2018 not ready to quit Annual Medicare Wellness Exam Social & Emotional Support always 06/30/2018 None Annual Medicare Wellness Exam Stress almost never 06/30/2018 None Annual Medicare Wellness Exam Sun Exposure protects skin when outdoors: y 06/30/2018 None Annual Medicare Wellness Exam Aspirin Use yes 06/30/2018 325 Annual Medicare Wellness Exam Hours of Sleep 8 06/30/2018 None Annual Medicare Wellness Exam Nutrition servings of fried food / high fat foods per day: _ 06/30/2018 food varies at home diabetes mellitus Quality insulin dependent 06/06/2018 None diabetes mellitus Quality chronic 06/06/2018 None diabetes mellitus Alleviating Factors medication 06/06/2018 None diabetes mellitus Alleviating Factors insulin 06/06/2018 None diabetes mellitus Exacerbating Factors diet 06/06/2018 None diabetes mellitus Nutrition regular diet 06/06/2018 None diabetes mellitus Pertinent Findings Denies dizziness 06/06/2018 None diabetes mellitus Pertinent Findings Denies dyspnea 06/06/2018 None diabetes mellitus Pertinent Findings Denies nausea 06/06/2018 None diabetes mellitus Pertinent Findings numbness 06/06/2018 in his feet occasionally hypertension Quality chr onic 06/06/2018 None hypertension Quality angely leach hypertension 06/06/2018 None hypertension Onset and Resolution ongoing 06/06/2018 None hypertension Onset of Symptom during adulthood 06/06/2018 None hypertension Blood Pressure Values not checking blood pressure at home 06/06/2018 None hypertension Alleviating Factors medication 06/06/2018 None hypertension Pertinent Findings Denies dizziness 06/06/2018 None hypertension Pertinent Findings Denies dyspnea 06/06/2018 None hypertension Pertinent Findings edema 06/06/2018 in his feet diabetes mellitus Glucose monitoring twice daily 06/06/2018 None vaccination against influenza Location deltoid-Rt 06/06/2018 None diabetes mellitus Quality insulin dependent 04/04/2018 None diabetes mellitus Quality chronic 04/04/2018 None diabetes mellitus Alleviating Factors medication 04/04/2018 None diabetes mellitus Alleviating Factors insulin 04/04/2018 None diabetes mellitus Exacerbating Factors diet 04/04/2018 None diabetes mellitus Nutrition regular diet 04/04/2018 None diabetes mellitus Pertinent Findings Denies dizziness 04/04/2018 None diabetes mellitus Pertinent Findings Denies dyspnea 04/04/2018 None diabetes mellitus Pertinent Findings Denies nausea 04/04/2018 None diabetes mellitus Pertinent Findings numbness 04/04/2018 in his feet occasionally hypertension Quality chr onic 04/04/2018 None hypertension Quality angely leach hypertension 04/04/2018 None hypertension Onset and Resolution ongoing 04/04/2018 None hypertension Onset of Symptom during adulthood 04/04/2018 None hypertension Blood Pressure Values not checking blood pressure at home 04/04/2018 None hypertension Alleviating Factors medication 04/04/2018 None hypertension Pertinent Findings Denies dizziness 04/04/2018 None hypertension Pertinent Findings Denies dyspnea 04/04/2018 None hypertension Pertinent Findings edema 04/04/2018 in his feet diabetes mellitus Test results HgbA1c level 8.0 04/04/2018 None back pain Location lumba r spine 03/07/2018 None back pain Quality interm ittent 03/07/2018 None back pain Onset and Resolution gradual in onset 03/07/2018 None back pain Onset of Symptom 2 weeks ago 03/07/2018 None back pain Frequency of Episodes daily 03/07/2018 None back pain Pertinent Findings Denies extremity numbness 03/07/2018 None back pain Pertinent Findings Denies extremity weakness 03/07/2018 None back pain Triggers activ ity 03/07/2018 mowing the lawn back pain Radiating does not radiate 03/07/2018 None diabetes mellitus Quality insulin dependent 02/20/2018 None diabetes mellitus Alleviating Factors medication 02/20/2018 None diabetes mellitus Alleviating Factors insulin 02/20/2018 None diabetes mellitus Exacerbating Factors diet 02/20/2018 None diabetes mellitus Nutrition regular diet 02/20/2018 None diabetes mellitus Pertinent Findings Denies dizziness 02/20/2018 None diabetes mellitus Pertinent Findings Denies dyspnea 02/20/2018 None diabetes mellitus Pertinent Findings Denies nausea 02/20/2018 None diabetes mellitus Pertinent Findings numbness 02/20/2018 in his feet occasionally hypertension Quality angely haylee hypertension 02/20/2018 None hypertension Onset and Resolution ongoing 02/20/2018 None hypertension Onset of Symptom during adulthood 02/20/2018 None hypertension Blood Pressure Values not checking blood pressure at home 02/20/2018 None hypertension Alleviating Factors medication 02/20/2018 None hypertension Pertinent Findings Denies dizziness 02/20/2018 None hypertension Pertinent Findings Denies dyspnea 02/20/2018 None hypertension Pertinent Findings edema 02/20/2018 in his feet diabetes mellitus Quality chronic 02/20/2018 None diabetes mellitus Glucose monitoring twice daily 02/20/2018 None hypertension Quality chr onic 02/20/2018 None diabetes mellitus Test results Pt checking blood glucose at home, see scanned readings 02/20/2018 None cough Frequency of Episodes daily 01/30/2018 None cough Significant Medical Conditions pulmonary disease 01/30/2018 None cough Quality acute 01/30/2018 None cough Quality intermitte nt 01/30/2018 None cough Quality productive 01/30/2018 None cough Frequency of Episodes unchanged 01/30/2018 None cough Pertinent Findings Denies fever 01/30/2018 None cough Pertinent Findings nasal congestion 01/30/2018 None cough Pertinent Findings weakness 01/30/2018 None cough Pertinent Findings lethargy 01/30/2018 None cough Onset and Resolution ongoing 01/30/2018 None cough Onset of Symptom d uring adulthood 01/30/2018 None cough Limitation on Activities moderately limits activities 01/30/2018 None cough Triggers no known associated factors 01/30/2018 None skin lesion Quality acute 01/14/2018 None skin lesion Onset and Resolution sudden in onset 01/14/2018 None skin lesion Onset of Symptom 1 days ago 01/14/2018 noticed it last night skin lesion Severity mild 01/14/2018 None skin lesion Frequency of Episodes unchanged 01/14/2018 None skin lesion Triggers no known associated factors 01/14/2018 None skin lesion Pertinent Findings Denies cough 01/14/2018 None skin lesion Pertinent Findings Denies fever 01/14/2018 None cough Location in the jorge ng 01/13/2018 None cough Quality constant 01/13/2018 None cough Quality hacking 01/13/2018 None cough Quality productive 01/13/2018 None cough Onset and Resolution gradual in onset 01/13/2018 None cough Onset of Symptom 1 0 days ago 01/13/2018 None cough Frequency of Episodes daily 01/13/2018 None chest congestion Quality constant 01/13/2018 None chest congestion Onset and Resolution gradual in onset 01/13/2018 None chest congestion Onset of Symptom 10 days ago 01/13/2018 None cough Significant Medical Conditions pulmonary disease 01/13/2018 None diabetes mellitus Quality insulin dependent 11/19/2017 None diabetes mellitus Significant Medications insulin 11/19/2017 None diabetes mellitus Alleviating Factors medication 11/19/2017 None diabetes mellitus Alleviating Factors insulin 11/19/2017 None diabetes mellitus Exacerbating Factors diet 11/19/2017 None diabetes mellitus Nutrition regular diet 11/19/2017 None diabetes mellitus Pertinent Findings Denies dizziness 11/19/2017 None diabetes mellitus Pertinent Findings Denies dyspnea 11/19/2017 None diabetes mellitus Pertinent Findings nausea 11/19/2017 a couple of nights ago diabetes mellitus Pertinent Findings numbness 11/19/2017 in his feet occasionally hypertension Quality angely haylee hypertension 11/19/2017 None hypertension Onset and Resolution ongoing 11/19/2017 None hypertension Onset of Symptom during adulthood 11/19/2017 None hypertension Blood Pressure Values not checking blood pressure at home 11/19/2017 None hypertension Alleviating Factors medication 11/19/2017 None hypertension Pertinent Findings Denies dizziness 11/19/2017 None hypertension Pertinent Findings Denies dyspnea 11/19/2017 None hypertension Pertinent Findings Denies edema 11/19/2017 None diabetes mellitus Test results Pt checking blood glucose readings, did not bring results to clinic 11/19/2017 None diabetes mellitus Glucose monitoring twice daily 11/19/2017 None diabetes mellitus Test results HgbA1c level 7.2 11/19/2017 None chest congestion Quality constant 10/02/2017 None chest congestion Onset and Resolution sudden in onset 10/02/2017 None chest congestion Onset of Symptom 3 days ago 10/02/2017 None chest congestion Quality thick secretions 10/02/2017 None back pain Location lumba r-sacral spine 10/02/2017 None back pain Quality aching 10/02/2017 None back pain Quality consta nt 10/02/2017 None back pain Onset and Resolution sudden in onset 10/02/2017 None back pain Onset of Symptom 3 days ago 10/02/2017 None back pain Frequency of Episodes daily 10/02/2017 None diabetes mellitus Quality insulin dependent 07/23/2017 None diabetes mellitus Significant Medications insulin 07/23/2017 None diabetes mellitus Nutrition regular diet 07/23/2017 None diabetes mellitus Pertinent Findings Denies dizziness 07/23/2017 None diabetes mellitus Pertinent Findings Denies dyspnea 07/23/2017 None hypertension Quality angely haylee hypertension 07/23/2017 None hypertension Onset and Resolution ongoing 07/23/2017 None hypertension Onset of Symptom during adulthood 07/23/2017 None hypertension Alleviating Factors medication 07/23/2017 None diabetes mellitus Alleviating Factors insulin 07/23/2017 None diabetes mellitus Alleviating Factors medication 07/23/2017 None diabetes mellitus Exacerbating Factors diet 07/23/2017 None diabetes mellitus Test results Pt checking blood glucose at home, see scanned readings 07/23/2017 None diabetes mellitus Glucose monitoring twice daily 07/23/2017 None hypertension Blood Pressure Values not checking blood pressure at home 07/23/2017 None hypertension Pertinent Findings Denies dizziness 07/23/2017 None hypertension Pertinent Findings Denies dyspnea 07/23/2017 None hypertension Pertinent Findings Denies edema 07/23/2017 None diabetes mellitus Pertinent Findings Denies nausea 07/23/2017 None diabetes mellitus Pertinent Findings numbness 07/23/2017 in his feet diabetes mellitus Quality insulin dependent 04/25/2017 None diabetes mellitus Severity mild 04/25/2017 None diabetes mellitus Significant Medications insulin 04/25/2017 None diabetes mellitus Nutrition regular diet 04/25/2017 None diabetes mellitus Pertinent Findings Denies dizziness 04/25/2017 None diabetes mellitus Pertinent Findings Denies dyspnea 04/25/2017 None chest congestion Quality acute 04/25/2017 None chest congestion Onset and Resolution sudden in onset 04/25/2017 None chest congestion Pertinent Findings cough 04/25/2017 None chest congestion Pertinent Findings decreased energy 04/25/2017 None chest congestion Pertinent Findings dyspnea 04/25/2017 None chest congestion Pertinent Findings Denies fever 04/25/2017 None diabetes mellitus Quality insulin dependent 02/19/2017 None diabetes mellitus Severity mild 02/19/2017 None diabetes mellitus Significant Medications insulin 02/19/2017 None diabetes mellitus Pertinent Findings Denies dizziness 02/19/2017 None diabetes mellitus Pertinent Findings Denies dyspnea 02/19/2017 None diabetes mellitus Nutrition regular diet 02/19/2017 None diabetes mellitus Test results HgbA1c level 7.5 02/19/2017 None constipation Quality int ermittent 01/21/2017 None constipation Onset and Resolution ongoing 01/21/2017 None constipation Frequency of Episodes weekly 01/21/2017 None constipation Pertinent Findings Denies dyspnea 01/21/2017 None constipation Pertinent Findings Denies fever 01/21/2017 None constipation Pertinent Findings Denies hypotonia 01/21/2017 None constipation Quality chr onic 01/21/2017 None constipation Onset of Symptom _ months ago 01/21/2017 None constipation Pertinent Findings depressed mood 01/21/2017 None constipation Pertinent Findings decreased energy level 01/21/2017 None constipation Pertinent Findings adequate oral intake 01/21/2017 None constipation Pertinent Findings poor weight gain 01/21/2017 None constipation Pertinent Findings pain with stooling 01/21/2017 None constipation Pertinent Findings lightheadedness 01/21/2017 None constipation Pertinent Findings medication use 01/21/2017 None constipation Severity mo derate 01/21/2017 None constipation Triggers no known associated factors 01/21/2017 None diabetes mellitus Quality insulin dependent 12/20/2016 None diabetes mellitus Severity mild 12/20/2016 None diabetes mellitus Significant Medications insulin 12/20/2016 None diabetes mellitus Nutrition regular diet 12/20/2016 None diabetes mellitus Pertinent Findings Denies dizziness 12/20/2016 None diabetes mellitus Pertinent Findings Denies dyspnea 12/20/2016 None chest congestion Quality acute 12/20/2016 None chest congestion Onset and Resolution sudden in onset 12/20/2016 None chest congestion Pertinent Findings cough 12/20/2016 None chest congestion Pertinent Findings decreased energy 12/20/2016 None chest congestion Pertinent Findings dyspnea 12/20/2016 None chest congestion Pertinent Findings Denies fever 12/20/2016 None diabetes mellitus Quality insulin dependent 08/23/2016 None diabetes mellitus Severity mild 08/23/2016 None diabetes mellitus Significant Medications insulin 08/23/2016 None diabetes mellitus Nutrition regular diet 08/23/2016 None diabetes mellitus Pertinent Findings Denies dizziness 08/23/2016 None diabetes mellitus Pertinent Findings Denies dyspnea 08/23/2016 None diabetes mellitus Test results HgbA1c level 7.6 08/23/2016 None diabetes mellitus Blood glucose levels greater than 120 08/23/2016 None diabetes mellitus Glucose monitoring daily 08/23/2016 None diabetes mellitus Quality insulin dependent 05/22/2016 None diabetes mellitus Severity mild 05/22/2016 None diabetes mellitus Significant Medications insulin 05/22/2016 None diabetes mellitus Nutrition regular diet 05/22/2016 None diabetes mellitus Pertinent Findings Denies dizziness 05/22/2016 None diabetes mellitus Pertinent Findings Denies dyspnea 05/22/2016 None constipation Quality int ermittent 02/24/2016 None constipation Onset and Resolution ongoing 02/24/2016 None constipation Onset of Symptom 4 weeks ago 02/24/2016 None constipation Frequency of Episodes weekly 02/24/2016 None constipation Pertinent Findings Denies dyspnea 02/24/2016 None constipation Pertinent Findings Denies hypotonia 02/24/2016 None constipation Pertinent Findings Denies fever 02/24/2016 None dysuria Quality acute 02/24/2016 None dysuria Onset and Resolution ongoing 02/24/2016 None dysuria Limitation on Activities does not limit urination 02/24/2016 None dysuria Frequency of Episodes increasing 02/24/2016 None dysuria Onset of Symptom 1 weeks ago 02/24/2016 None dysuria Significant Medical Conditions recurrent urinary tract infections 02/24/2016 None dysuria Triggers no know n associated factors 02/24/2016 None nausea Onset of Symptom _ months ago 01/27/2016 None nausea Frequency of Episodes daily 01/27/2016 None nausea Triggers no known associated factors 01/27/2016 None nausea Onset and Resolution sudden in onset 01/27/2016 None medication follow up Location intravenous medication (_) 11/25/2015 None diabetes mellitus Quality insulin dependent 11/25/2015 None diabetes mellitus Severity mild 11/25/2015 None diabetes mellitus Significant Medications insulin 11/25/2015 None diabetes mellitus Nutrition regular diet 11/25/2015 None diabetes mellitus Pertinent Findings Denies dizziness 11/25/2015 None diabetes mellitus Pertinent Findings Denies dyspnea 11/25/2015 None diabetes mellitus Glucose monitoring twice daily 11/25/2015 None cough Location in the jorge [place] 11/25/2015 None cough Quality acute 11/25/2015 None cough Onset and Resolution ongoing 11/25/2015 None cough Limitation on Activities does not limit activities 11/25/2015 None cough Frequency of Episodes unchanged 11/25/2015 None cough Onset of Symptom 2 weeks ago 11/25/2015 None cough Significant Medical Conditions pulmonary disease 11/25/2015 None cough Triggers no known associated factors 11/25/2015 None cough Pertinent Findings Denies dyspnea 11/25/2015 None medication follow up Location intravenous medication (_) 07/28/2015 None diabetes mellitus Quality insulin dependent 07/28/2015 None diabetes mellitus Severity mild 07/28/2015 None diabetes mellitus Significant Medications insulin 07/28/2015 None diabetes mellitus Nutrition regular diet 07/28/2015 None diabetes mellitus Pertinent Findings Denies dizziness 07/28/2015 None diabetes mellitus Pertinent Findings Denies dyspnea 07/28/2015 None medication follow up Additional Comments medication use 05/26/2015 None medication follow up Location intravenous medication (_) 05/26/2015 None diabetes mellitus Quality insulin dependent 05/26/2015 None diabetes mellitus Severity mild 05/26/2015 None diabetes mellitus Test results Pt checking blood glucose at home, see scanned readings 05/26/2015 None diabetes mellitus Glucose monitoring daily 05/26/2015 None diabetes mellitus Significant Medications insulin 05/26/2015 None diabetes mellitus Nutrition regular diet 05/26/2015 None diabetes mellitus Exercise no exercise 05/26/2015 None diabetes mellitus Severity mild 05/06/2015 None diabetes mellitus Significant Medications glucagon 05/06/2015 None diabetes mellitus Alleviating Factors medication 05/06/2015 None diabetes mellitus Pertinent Findings Denies dizziness 05/06/2015 None diabetes mellitus Pertinent Findings Denies dyspnea 05/06/2015 None diabetes mellitus Onset of Symptom onset during youth 05/06/2015 None cough Quality hacking 05/06/2015 None cough Quality worsening 05/06/2015 None cough Onset and Resolution sudden in onset 05/06/2015 None cough Onset of Symptom 2 weeks ago 05/06/2015 None cough Limitation on Activities moderately limits activities 05/06/2015 None cough Frequency of Episodes daily 05/06/2015 None cough Triggers no known associated factors 05/06/2015 None cough Pertinent Findings weakness 05/06/2015 None diabetes mellitus Quality insulin dependent 05/06/2015 None diabetes mellitus Test results Pt checking blood glucose readings, did not bring results to clinic 05/06/2015 None diabetes mellitus Glucose monitoring daily 05/06/2015 None diabetes mellitus Exacerbating Factors diet 05/06/2015 and recent steroids diabetes mellitus Quality non-insulin dependent 04/25/2015 None diabetes mellitus Severity mild 04/25/2015 None diabetes mellitus Significant Medications glucagon 04/25/2015 None diabetes mellitus Alleviating Factors medication 04/25/2015 None diabetes mellitus Pertinent Findings Denies dizziness 04/25/2015 None diabetes mellitus Pertinent Findings Denies dyspnea 04/25/2015 None diabetes mellitus Onset of Symptom onset during youth 04/25/2015 None cough Quality hacking 04/25/2015 None cough Quality worsening 04/25/2015 None cough Onset and Resolution sudden in onset 04/25/2015 None cough Onset of Symptom 2 weeks ago 04/25/2015 None cough Limitation on Activities moderately limits activities 04/25/2015 None cough Frequency of Episodes daily 04/25/2015 None cough Triggers no known associated factors 04/25/2015 None cough Pertinent Findings weakness 04/25/2015 None chest congestion Quality worsening 04/25/2015 None chest congestion Onset and Resolution sudden in onset 04/25/2015 None chest congestion Onset of Symptom 2 weeks ago 04/25/2015 None chest congestion Triggers no known associated factors 04/25/2015 None chest congestion Pertinent Findings cough 04/25/2015 None chest congestion Pertinent Findings decreased energy 04/25/2015 None chest congestion Pertinent Findings loss of appetite 04/25/2015 None chest congestion Pertinent Findings sputum production 04/25/2015 None fatigue Limitation on Activities moderately limits activities 04/25/2015 None fatigue Onset of Symptom 2 months ago 04/25/2015 None fatigue Frequency of Episodes daily 04/25/2015 None fatigue Pertinent Findings weakness 04/25/2015 None fatigue Onset and Resolution ongoing 04/25/2015 None diabetes mellitus Quality non-insulin dependent 04/12/2015 None diabetes mellitus Severity mild 04/12/2015 None diabetes mellitus Significant Medications glucagon 04/12/2015 None diabetes mellitus Alleviating Factors medication 04/12/2015 None diabetes mellitus Pertinent Findings Denies dizziness 04/12/2015 None diabetes mellitus Pertinent Findings Denies dyspnea 04/12/2015 None diabetes mellitus Onset of Symptom onset during youth 04/12/2015 None diabetes mellitus Glucose monitoring twice daily 04/12/2015 None cough Quality worsening 04/12/2015 None cough Quality hacking 04/12/2015 None cough Onset and Resolution sudden in onset 04/12/2015 None cough Onset of Symptom 2 weeks ago 04/12/2015 None cough Limitation on Activities moderately limits activities 04/12/2015 None cough Frequency of Episodes daily 04/12/2015 None cough Triggers no known associated factors 04/12/2015 None cough Pertinent Findings weakness 04/12/2015 None chest congestion Quality worsening 04/12/2015 None chest congestion Onset and Resolution sudden in onset 04/12/2015 None chest congestion Onset of Symptom 2 weeks ago 04/12/2015 None chest congestion Triggers no known associated factors 04/12/2015 None chest congestion Pertinent Findings cough 04/12/2015 None chest congestion Pertinent Findings decreased energy 04/12/2015 None chest congestion Pertinent Findings loss of appetite 04/12/2015 None chest congestion Pertinent Findings sputum production 04/12/2015 None diabetes mellitus Test results Pt checking blood glucose at home, see scanned readings 03/24/2015 None diabetes mellitus Glucose monitoring daily 03/24/2015 brought in log diabetes mellitus Pertinent Findings Denies dizziness 03/24/2015 None diabetes mellitus Pertinent Findings Denies dyspnea 03/24/2015 None diabetes mellitus Quality non-insulin dependent 03/24/2015 None diabetes mellitus Severity mild 03/24/2015 None diabetes mellitus Blood glucose levels greater than 120 03/24/2015 None diabetes mellitus Blood glucose levels between 60 and 120 03/24/2015 None diabetes mellitus Significant Medications glucagon 03/24/2015 None diabetes mellitus Alleviating Factors medication 03/24/2015 None diabetes mellitus Onset of Symptom onset during youth 03/24/2015 None changing lesion Location-Major on the head 03/07/2015 posterior scalp changing lesion Color br own 03/07/2015 None changing lesion Color fl esh-colored 03/07/2015 None changing lesion Onset and Resolution ongoing 03/07/2015 None Hospital Follow Up _ [facility] er: vertigo 03/07/2015 None Hospital Follow Up Quality improving 03/07/2015 None Hospital Follow Up Onset of Symptom _ weeks ago 03/07/2015 None Hospital Follow Up Onset and Resolution sudden in onset 03/07/2015 None Hospital Follow Up Severity mild 03/07/2015 None near-syncope/dizziness Onset of Symptom _ months ago 02/17/2015 None near-syncope/dizziness Limitation on Activities moderately limits activities 02/17/2015 None near-syncope/dizziness Frequency of Episodes daily 02/17/2015 None near-syncope/dizziness Alleviating Factors position change 02/17/2015 None near-syncope/dizziness Exacerbating Factor s position change 02/17/2015 None fatigue Limitation on Activities moderately limits activities 02/17/2015 None fatigue Onset of Symptom _ months ago 02/17/2015 None fatigue Frequency of Episodes daily 02/17/2015 None vertigo Onset of Symptom 3 weeks ago 12/31/2014 None vertigo Quality intermit tent 12/31/2014 None vertigo Frequency of Episodes daily 12/31/2014 None vertigo Pertinent Findings dizziness 12/31/2014 None vertigo Pertinent Findings Denies diplopia 12/31/2014 None vertigo Pertinent Findings Denies ear pain 12/31/2014 None vertigo Pertinent Findings Denies syncope 12/31/2014 None dizziness Quality spinni ng 12/23/2014 None dizziness Onset and Resolution ongoing 12/23/2014 None dizziness Limitation on Activities moderately limits activities 12/23/2014 off balance- reports cant walk a straight line dizziness Triggers activ ity 12/23/2014 None dizziness Triggers head turning 12/23/2014 None dizziness Alleviating Factors rest 12/23/2014 None dizziness Exacerbating Factors turning the head 12/23/2014 None dizziness Pertinent Findings Denies blurred vision 12/23/2014 None dizziness Pertinent Findings Denies dyspnea 12/23/2014 None dizziness Pertinent Findings Denies fever 12/23/2014 None dizziness Pertinent Findings lightheadedness 12/23/2014 None dizziness Pertinent Findings Denies nausea 12/23/2014 None dizziness Frequency of Episodes decreasing 12/23/2014 None dizziness Pertinent Findings problems with coordination 12/23/2014 None dizziness Onset of Symptom _ hours ago 12/09/2014 woke up with it this morn ing dizziness Limitation on Activities moderately limits activities 12/09/2014 off balance- granddaughter had to help him walk dizziness Pertinent Findings blurred vision 12/09/2014 None dizziness Pertinent Findings Denies dyspnea 12/09/2014 None dizziness Pertinent Findings Denies fever 12/09/2014 None dizziness Pertinent Findings lightheadedness 12/09/2014 None dizziness Pertinent Findings Denies nausea 12/09/2014 None dizziness Quality imbala nce 12/09/2014 None dizziness Quality spinni ng 12/09/2014 None dizziness Onset and Resolution ongoing 12/09/2014 None dizziness Frequency of Episodes increasing 12/09/2014 None dizziness Triggers activ ity 12/09/2014 None dizziness Triggers head turning 12/09/2014 None dizziness Alleviating Factors rest 12/09/2014 None dizziness Exacerbating Factors turning the head 12/09/2014 None Advance Directives No Advance Directive data Encounters Encounter Performer Loca tion Codes Date ([id number]) [id number] EST. 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 P ATIENT, LEVEL III Diagnosis: Orthostatic hypotension[ICD10: I95.1] Diagnosis: Low back pain[ICD10: M54.5] Diagnosis: Unsteadiness on feet[ICD10: R26.81] Karmen Ash MD, [facility] CPT-4: 59049 10/17/2018 ([id number]) [id number] EST. 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 P ATIENT, LEVEL IV Diagnosis: Cellulitis of face[ICD10: L03.211] Diagnosis: Type 2 diabetes mellitus without complications[ICD10: E11.9] Diagnosis: Essential (primary) hypertension[ICD10: I10] Diagnosis: Encounter for immunization[ICD10: Z23] Karmen Ash MD, [facility] CPT-4: 60610 06/06/2018 ([id number]) [id number] EST. 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 P ATIENT, LEVEL III Diagnosis: Low back pain[ICD10: M54.5] Diagnosis: Dysuria[ICD10: R30.0] Karmen Ash MD, [facility] CPT-4: 14530 03/07/2018 ([id number]) [id number] EST. 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 P ATIENT, LEVEL III Diagnosis: Chronic obstructive pulmonary disease with (acute) exacerbation[ICD10: J44.1] Karmen Ash MD, [facility] CPT-4: 09323 01/30/2018 95723 EST. PATIENT, LEVEL II Diagnosis: Insect bite (nonvenomous), left lower leg, initial encounter[ICD10: S80.862A] Karmen Ash MD, [facility] CPT-4: 12904 01/14/2018 ([id number]) [id number] EST. P ATIENT, LEVEL IV Diagnosis: Type 2 diabetes mellitus with hyperglycemia[ICD10: E11.65] Diagnosis: Chronic obstructive pulmonary disease, unspecified[ICD10: J44.9] Diagnosis: Other fatigue[ICD10: R53.83] Karmen Ash MD, [facility] CPT- 4: 82742 01/13/2018 ([id number]) [id number] EST. P ATIENT, LEVEL IV Diagnosis: Type 2 diabetes mellitus with hyperglycemia[ICD10: E11.65] Diagnosis: Vitamin D deficiency, unspecified[ICD10: E55.9] Diagnosis: Essential (primary) hypertension[ICD10: I10] Diagnosis: Abdominal distension (gaseous)[ICD10: R14.0] Diagnosis: Drug induced constipation[ICD10: K59.03] Karmen Ash MD, [facility] CPT-4: 27407 11/19/2017 [id number] EST. PATIENT, LEVEL IV Diagnosis: Low back pain[ICD10: M54.5] Diagnosis: Chronic obstructive pulmonary disease, unspecified[ICD10: J44.9] Brunilda Ash MD, [facility] CPT-4: 80853 10/02/2017 ([id number]) [id number] EST. P ATIENT, LEVEL IV Diagnosis: Essential (primary) hypertension[ICD10: I10] Diagnosis: Type 2 diabetes mellitus with hyperglycemia[ICD10: E11.65] Diagnosis: Vitamin D deficiency, unspecified[ICD10: E55.9] Diagnosis: Mixed hyperlipidemia[ICD10: E78.2] Karmen Ash MD, [facility] CPT-4: 10089 07/23/2017 ([id number]) [id number] EST. P ATIENT, LEVEL IV Diagnosis: Essential (primary) hypertension[ICD10: I10] Diagnosis: Type 2 diabetes mellitus with hyperglycemia[ICD10: E11.65] Diagnosis: Chronic obstructive pulmonary disease, unspecified[ICD10: J44.9] Diagnosis: Nicotine dependence, unspecified, uncomplicated[ICD10: F17.200] Diagnosis: Encounter for immunization[ICD10: Z23] Karmen Ash MD, [facility] CPT-4: 18413 04/25/2017 ([id number]) [id number] EST. P ATIENT, LEVEL IV Diagnosis: Type 2 diabetes mellitus with hyperglycemia[ICD10: E11.65] Diagnosis: Essential (primary) hypertension[ICD10: I10] Diagnosis: Anemia, unspecified[ICD10: D64.9] Karmen Ash MD, [facility] CPT- 4: 89467 02/19/2017 ([id number]) [id number] EST. P ATIENT, LEVEL IV Diagnosis: Slow transit constipation[ICD10: K59.01] Diagnosis: Gastro-esophageal reflux disease without esophagitis[ICD10: K21.9] Diagnosis: Essential (primary) hypertension[ICD10: I10] Karmen Ash MD, [facility] CPT-4: 18170 01/21/2017 ([id number]) 45304 EST. P ATIENT, LEVEL IV Diagnosis: Type 2 diabetes mellitus with hyperglycemia[ICD10: E11.65] Diagnosis: Vitamin D deficiency, unspecified[ICD10: E55.9] Diagnosis: Essential (primary) hypertension[ICD10: I10] Diagnosis: Chronic obstructive pulmonary disease, unspecified[ICD10: J44.9] Karmen Ash MD, [facility] CPT-4: 25713 12/20/2016 ([id number]) [id number] EST. P ATIENT, LEVEL IV Diagnosis: Type 2 diabetes mellitus with hyperglycemia[ICD10: E11.65] Diagnosis: Essential (primary) hypertension[ICD10: I10] Diagnosis: Mixed hyperlipidemia[ICD10: E78.2] Diagnosis: Vitamin D deficiency, unspecified[ICD10: E55.9] Karmen Ash MD, [facility] CPT-4: 44662 08/23/2016 ([id number]) [id number] EST. P ATIENT, LEVEL IV Diagnosis: Type 2 diabetes mellitus with hyperglycemia[ICD10: E11.65] Diagnosis: Essential (primary) hypertension[ICD10: I10] Diagnosis: Chronic obstructive pulmonary disease, unspecified[ICD10: J44.9] Karmen Ash MD, [facility] CPT-4: 35617 05/22/2016 ([id number]) [id number] EST. P ATIENT, LEVEL III Diagnosis: Dysuria[ICD10: R30.0] Diagnosis: Essential (primary) hypertension[ICD10: I10] Karmen Ash MD, [facility] CPT-4: 54356 02/24/2016 ([id number]) 68581 EST. P ATIENT, LEVEL IV Diagnosis: Gastro-esophageal reflux disease without esophagitis[ICD10: K21.9] Diagnosis: Slow transit constipation[ICD10: K59.01] Diagnosis: Type 2 diabetes mellitus with hyperglycemia[ICD10: E11.65] Karmen Ash MD, [facility] CPT-4: 02228 01/27/2016 ([id number]) 76756 EST. P ATIENT, LEVEL IV Diagnosis: Essential (primary) hypertension[ICD10: I10] Diagnosis: Type 2 diabetes mellitus with hyperglycemia[ICD10: E11.65] Diagnosis: Vitamin D deficiency, unspecified[ICD10: E55.9] Diagnosis: Chronic obstructive pulmonary disease, unspecified[ICD10: J44.9] Diagnosis: Mixed hyperlipidemia[ICD10: E78.2] Diagnosis: Tobacco use[ICD10: Z72.0] Karmen Ash MD, [facility] CPT- 4: 18900 11/25/2015 ([id number]) 33883 EST. P ATIENT, LEVEL IV Diagnosis: Type 2 diabetes mellitus with hyperglycemia[ICD10: E11.65] Diagnosis: Essential (primary) hypertension[ICD10: I10] Diagnosis: Vitamin D deficiency, unspecified[ICD10: E55.9] Karmen Ash MD, [facility] CPT-4: 44987 07/28/2015 ([id number]) 14411 EST. P ATIENT, LEVEL III Diagnosis: Type 2 diabetes mellitus with hyperglycemia[ICD10: E11.65] Diagnosis: Essential (primary) hypertension[ICD10: I10] Violeta Ash MD, [facility] CPT-4: 32207 05/26/2015 ([id number]) 73942 EST. P ATIENT, LEVEL III Diagnosis: DIABETES TYPE II[ICD9: 250.00] Diagnosis: COPD (chronic obstructive pulmonary disease)[ICD9: 496] Diagnosis: ESSENTIAL HYPERTENSION[ICD9: 401.9] Diagnosis: Cough[ICD9: 786.2] Violeta Ash MD, [facility] CPT-4: 25282 05/06/2015 ([id number]) 80046 EST. P ATIENT, LEVEL III Diagnosis: COPD (chronic obstructive pulmonary disease)[ICD9: 496] Diagnosis: DIABETES TYPE II[ICD9: 250.00] Diagnosis: Muscle ache[ICD9: 729.1] Karmen Ash MD, [facility] CPT- 4: 07432 04/25/2015 ([id number]) 50543 EST. P ATIENT, LEVEL III Diagnosis: ACTINIC KERATOSIS[ICD9: 702.0] Diagnosis: COPD (chronic obstructive pulmonary disease)[ICD9: 496] Diagnosis: DIABETES TYPE II[ICD9: 250.00] Diagnosis: ACUTE URI[ICD9: 465.9] Violeta Ash MD, [facility] CPT-4: 61187 04/12/2015 ([id number]) 13344 EST. P ATIENT, LEVEL III Diagnosis: DIABETES TYPE II[ICD9: 250.00] Violeta Ash MD, [facility] CPT-4: 65706 03/24/2015 ([id number]) 07151 EST. P ATIENT, LEVEL IV Diagnosis: DIABETES TYPE II[ICD9: 250.00] Diagnosis: Hypoglycemia[ICD9: 251.2] Diagnosis: Skin texture changes[ICD9: 782.8] Violeta Ash MD, [facility] CPT-4: 08212 03/07/2015 ([id number]) 35988 EST. P ATIENT, LEVEL IV Diagnosis: COPD (chronic obstructive pulmonary disease)[ICD9: 496] Diagnosis: Fatigue[ICD9: 780.79] Diagnosis: Insulin dependent diabetes mellitus[ICD9: 250.00] Diagnosis: Unsteady gait[ICD9: 781.2] Maame Ash MD, [facility] CPT-4: 36677 02/17/2015 ([id number]) 75906 EST. P ATIENT, LEVEL IV Diagnosis: BPPV (benign paroxysmal positional vertigo)[ICD9: 386.11] Diagnosis: Impacted cerumen[ICD9: 380.4] Diagnosis: ESSENTIAL HYPERTENSION[ICD9: 401.9] Diagnosis: Insulin dependent diabetes mellitus[ICD9: 250.00] Karmen Ash MD, [facility] CPT-4: 40376 12/23/2014 ([id number]) [facility] LEVEL 4 Diagnosis: Insulin dependent diabetes mellitus[ICD9: 250.00] Diagnosis: BPPV (benign paroxysmal positional vertigo)[ICD9: 386.11] Diagnosis: COPD (chronic obstructive pulmonary disease)[ICD9: 496] Diagnosis: Tobacco abuse[ICD9: 305.1] Diagnosis: Osteoarthritis[ICD9: 715.90] [facility] CPT- 4: 90123 12/09/2014 Plan of Care Planned Activity Notes C odes Status Date Patient Education: Patient Medication Summary Completed 04/17/2019 Appointment: Injection 03/31/2019 Patient Education: Patient Medication Summary Completed 03/31/2019 Appointment: Injection 03/17/2019 Patient Education: Patient Medication Summary Completed 03/17/2019 Patient Education: Patient Medication Summary Completed 03/05/2019 Appointment: Injection 03/04/2019 Patient Education: Patient Medication Summary Completed 03/04/2019 Visit Plan: COPD - chronic problem for this patient. We have reviewed chronic treatment strategy, symptom control, and plans for acute exacerbations. No changes today to the current treatment plan as the patient is stable, monitor for acute changes. 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 DM -rx for CGM -patient is due for labs Low testosterone - check level 03/03/2019 Appointment: Karmen Espinal WPtel: [phone] (30 min) [facility] 03/03/2019 Patient Education: Patient Medication Summary Completed 03/03/2019 Patient Education: Cholesterol Management Completed 03/03/2019 Patient Education: Diabetes Completed 03/03/2019 Appointment: Injection 02/16/2019 Patient Education: Patient Medication Summary Completed 02/16/2019 Appointment: Injection 01/30/2019 Patient Education: Patient Medication Summary Completed 01/30/2019 Appointment: Injection 01/16/2019 Patient Education: Patient Medication Summary Completed 01/16/2019 Appointment: Injection 01/01/2019 Patient Education: Patient Medication Summary Completed 01/01/2019 Appointment: Injection 12/17/2018 Patient Education: Patient Medication Summary Completed 12/17/2018 Visit Plan: COPD - chronic problem for this patient. We have reviewed chronic treatment strategy, symptom control, and plans for acute exacerbations. No changes today to the current treatment plan as the patient is stable, monitor for acute changes. Diabetes Mellitus - controlled - per recent FSBS reports. I have recommended for the patient to have follow up labs prior to the next office visit. The patient has been instructed to continue with current medications as previously directed, continue with regular FSBS monitoring to assure continued control of diabetes. Pt to call for any acute concerns, complaints, or if the blood glucose readings are starting to become less controlled. Insomnia- recommend patient try melatonin as directed 12/02/2018 Appointment: Karmen Espinal WPtel: [phone] [phone] (30 min) Complex 12/02/2018 Patient Education: Patient Medication Summary Completed 12/02/2018 Patient Education: Diabetes Completed 12/02/2018 Appointment: Injection 11/18/2018 Patient Education: Patient Medication Summary Completed 11/18/2018 Appointment: Injection 11/04/2018 Patient Education: Patient Medication Summary Completed 11/04/2018 Appointment: Karmen Espinal WPtel: [phone] [phone] (30 min) Complex 10/21/2018 Visit Plan: Orthostatic hypotension -recommend patient pump legs before standing -change positions slowly- monitor blood pressures Chronic Pain Syndrome - pt has chronic pain - has been maintained on current medica tions, has not sought out other medications, only uses PRN pain medications as directed, and understands the consequences of over-medication. Gait instability- recommend patient use a walker 10/17/2018 Appointment: Karmen Espinal WPtel: [phone] [phone] (30 min) Complex 10/17/2018 Patient Education: Patient Medication Summary Completed 10/17/2018 Patient Education: Back Pain Completed 10/17/2018 Appointment: Injection 10/14/2018 Patient Education: Patient Medication Summary Completed 10/14/2018 Appointment: Injection 10/03/2018 Patient Education: Patient Medication Summary Completed 10/03/2018 Appointment: Injection 09/23/2018 Patient Education: Patient Medication Summary Completed 09/23/2018 Visit Plan: Hypertension - well con trolled - continue with current medications, continue with no added salt diet. Pt has been encouraged to exercise daily. The pt has been advised to call the office if there are any acute concerns about change in blood pressure readings at home. Diabetes Mellitus - controlled - per recent FSBS reports. I have recommended for the patient to have follow up labs prior to the next office visit. The patient has been instructed to continue with current medications as previously directed, continue with regular FSBS monitoring to assure continued control of diabetes. Pt to call for any acute concerns, complaints, or if the blood glucose readings are starting to become less controlled. COPD - chronic problem for this patient. We have reviewed chronic treatment strategy, symptom control, and plans for acute exacerbations. No changes today to the current treatment plan as the patient is stable, monitor for acute changes. Hyperlipidemia - pt has been counseled about appropriate diet, exercise, and need for low fat food choices. I have discussed the need for the patient to take medications as prescribed. If the patient has negative side effects from the medication, they are to CALL the office and not abruptly discontinue the medication without discussion with a practitioner in the office. We will check labs in 3-6 months for follow up on the patient's chronic medical problem and to assure normal liver response to medications. 09/02/2018 Appointment: Karm[facility] Espinal WPtel: [phone] [phone] (15 min) Moderate 09/02/2018 Patient Education: Patient Medication Summary Completed 09/02/2018 Patient Education: Hypertension Completed 09/02/2018 Patient Education: Diabetes Completed 09/02/2018 Patient Education: Cholesterol Management Completed 09/02/2018 Appointment: Injection 08/21/2018 Patient Education: Patient Medication Summary Completed 08/21/2018 Appointment: Injection 08/08/2018 Patient Education: Patient Medication Summary Completed 08/08/2018 Appointment: Injection 07/28/2018 Patient Education: Patient Medication Summary Completed 07/28/2018 Appointment: Injection 07/16/2018 Patient Education: Patient Medication Summary Completed 07/16/2018 Appointment: Injection 07/02/2018 Patient Education: Patient Medication Summary Completed 07/02/2018 Visit Plan: Medicare Exam - today w e discussed the patients past history, immunizations, preventative exams/evaluations - colonoscopy, fecal occult blood testing, routine labs for renal function, glucose, cholesterol, osteoporosis evaluations, cardiovascular testing and cancer screenings. We have also discussed mental health and the signs/symptoms of depression. The patient was advised of home safety evaluations and the need to make sure that as the aging process continues, we need to be aware of different ways to make the home a safer place to reside. The patient has also been counseled that exercise is necessary - and of utmost importance as we age to help decrease fall risk and to maintain independence in the home. Today we discussed the need for the patient to create paperwork for Advanced directives as well as for the patient to provide this office with a copy of her DOPA paperwork for health care surrogate. 06/30/2018 Appointment: Karmen Espinal WPtel: [phone] [phone] [facility] - Annual Wellness Visit 06/30/2018 Patient Education: Patient Medication Summary Completed 06/30/2018 Appointment: Injection 06/24/2018 Patient Education: Patient Medication Summary Completed 06/24/2018 Appointment: Injection 06/13/2018 Patient Education: Patient Medication Summary Completed 06/13/2018 Visit Plan: Diabetes Mellitus - I h tarah recommended for the patient to have follow up labs prior to the next office visit. The patient has been instructed to continue with current medications as previously directed, continue with regular FSBS monitoring to assure continued control of diabetes. Pt to call for any acute concerns, complaints, or if the blood glucose readings are starting to become less controlled. Hypertension - well controlled - continue with current medications, continue with no added salt diet. Pt has been encouraged to exercise daily. The pt has been advised to call the office if there are any acute concerns about change in blood pressure readings at home. Abscess/Cellulitis - The patient was instructed in appropriate wound care. The patient was instructed to use the antibiotic ointment as per RX. The patient is to call for any change in symptoms, increase in size of the lesion, increase in pain. 06/06/2018 Appointment: Karmen Espinal WPtel: [phone] [phone] (15 min) Moderate 06/06/2018 Patient Education: Patient Medication Summary Completed 06/06/2018 Patient Education: Diabetes Completed 06/06/2018 Patient Education: Hypertension Completed 06/06/2018 Appointment: Injection 06/05/2018 Patient Education: Patient Medication Summary Completed 06/05/2018 Appointment: Injection 05/30/2018 Patient Education: Patient Medication Summary Completed 05/30/2018 Appointment: Injection 05/22/2018 Patient Education: Patient Medication Summary Completed 05/22/2018 Appointment: Injection 05/12/2018 Patient Education: Patient Medication Summary Completed 05/12/2018 Appointment: Injection 05/02/2018 Patient Education: Patient Medication Summary Completed 05/02/2018 Appointment: Injection 04/24/2018 Patient Education: Patient Medication Summary Completed 04/24/2018 Appointment: Injection 04/17/2018 Patient Education: Patient Medication Summary Completed 04/17/2018 Visit Plan: Hypertension - well con trolled - continue with current medications, continue with no added salt diet. Pt has been encouraged to exercise daily. The pt has been advised to call the office if there are any acute concerns about change in blood pressure readings at home. Diabetes Mellitus - Uncontrolled- I have recommended for the patient to have follow up labs prior to the next office visit. The patient has been instructed to continue with current medications as previously directed, continue with regular FSBS monitoring to assure continued control of diabetes. Pt to call for any acute concerns, complaints, or if the blood glucose readings are starting to become less controlled. I have recommended for the patient to follow more strictly to the diabetic diet as discussed in clinic to allow for greater blood glucose control. COPD - chronic problem for this patient. We have reviewed chronic treatment strategy, symptom control, and plans for acute exacerbations. No changes today to the current treatment plan as the patient is stable, monitor for acute changes. Low Testosterone-continue injections monthly -repeat labs in 2 months 04/04/2018 Appointment: Karmen Espinal WPtel: [facility]5 [facility] [place] [address] (15 min) Moderate 04/04/2018 Patient Education: Patient Medication Summary Completed 04/04/2018 Care Plan: Cbc With Differential Pending 04/04/2018 Care Plan: Testosterone repeat in 2 months Pending 04/04/2018 Appointment: Karmen Espinal WPtel: [address] [place], [place] [phone] (15 min) Moderate 03/25/2018 Visit Plan: Low back pain -history of kidney stone-UA negative today -increase fluids and call if pain does not resolve or if any worse. 03/07/2018 Appointment: Karmen Espinal WPtel: [phone] [phone] (15 min) Moderate 03/07/2018 Patient Education: Patient Medication Summary Completed 03/07/2018 Visit Plan: Hypertension - well con trolled - continue with current medications, continue with no added salt diet. Pt has been encouraged to exercise daily. The pt has been advised to call the office if there are any acute concerns about change in blood pressure readings at home. COPD - chronic problem for this patient. We have reviewed chronic treatment strategy, symptom control, and plans for acute exacerbations. No changes today to the current treatment plan as the patient is stable, monitor for acute changes. Diabetes Mellitus - Uncontrolled - per recent FSBS reports. I have recommended for the patient to have follow up labs prior to the next office visit. The patient has been instructed to continue with current medications as previously directed, continue with regular FSBS monitoring to assure continued control of diabetes. Pt to call for any acute concerns, complaints, or if the blood glucose readings are starting to become less controlled. I have recommended for the patient to follow more strictly to the diabetic diet as discussed in clinic to allow for greater blood glucose control. Chronic Back pain - the patient was counseled to always first attempt to use modalities other than pain medication for alleviation of the muscle spasms and pain. The patient was also encouraged to continue with back exercises as previously directed. Pt is to use pain medication as directed. If pain medications are used inappropriately or early refills are requested, the patient understands that is a breech of trust/contract and could result in the patient's termination from this medical practice. Weight loss-increase snacks as discussed-follow up in 1 month 02/20/2018 Visit Plan: Hypertension - well con trolled - continue with current medications, continue with no added salt diet. Pt has been encouraged to exercise daily. The pt has been advised to call the office if there are any acute concerns about change in blood pressure readings at home. COPD - chronic problem for this patient. We have reviewed chronic treatment strategy, symptom control, and plans for acute exacerbations. No changes today to the current treatment plan as the patient is stable, monitor for acute changes. Diabetes Mellitus - Uncontrolled - per recent FSBS reports. I have recommended for the patient to have follow up labs prior to the next office visit. The patient has been instructed to continue with current medications as previously directed, continue with regular FSBS monitoring to assure continued control of diabetes. Pt to call for any acute concerns, complaints, or if the blood glucose readings are starting to become less controlled. I have recommended for the patient to follow more strictly to the diabetic diet as discussed in clinic to allow for greater blood glucose control. Chronic Back pain - the patient was counseled to always first attempt to use modalities other than pain medication for alleviation of the muscle spasms and pain. The patient was also encouraged to continue with back exercises as previously directed. Pt is to use pain medication as directed. If pain medications are used inappropriately or early refills are requested, the patient understands that is a breech of trust/contract and could result in the patient's termination from this medical practice. Weight loss-increase snacks as discussed-follow up in 1 month 02/20/2018 Visit Plan: Hypertension - well con trolled - continue with current medications, continue with no added salt diet. Pt has been encouraged to exercise daily. The pt has been advised to call the office if there are any acute concerns about change in blood pressure readings at home. COPD - chronic problem for this patient. We have reviewed chronic treatment strategy, symptom control, and plans for acute exacerbations. No changes today to the current treatment plan as the patient is stable, monitor for acute changes. Diabetes Mellitus - Uncontrolled - per recent FSBS reports. I have recommended for the patient to have follow up labs prior to the next office visit. The patient has been instructed to continue with current medications as previously directed, continue with regular FSBS monitoring to assure continued control of diabetes. Pt to call for any acute concerns, complaints, or if the blood glucose readings are starting to become less controlled. I have recommended for the patient to follow more strictly to the diabetic diet as discussed in clinic to allow for greater blood glucose control. Chronic Back pain - the patient was counseled to always first attempt to use modalities other than pain medication for alleviation of the muscle spasms and pain. The patient was also encouraged to continue with back exercises as previously directed. Pt is to use pain medication as directed. If pain medications are used inappropriately or early refills are requested, the patient understands that is a breech of trust/contract and could result in the patient's termination from this medical practice. 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 Pt is to receive appropriate treatment as an out patient, but the pt is aware that if symptoms worsen or do not improve, to call STEFANIE for instructions, or go to the EMERGENCY ROOM if the symptoms are beyond acute control with rescue medications. We have reviewed chronic treatment strategy, symptom control, and plans for acute exacerbations. No changes today to the current treatment plan as the patient is stable, monitor for acute changes. 01/30/2018 Appointment: Karmen Espinal WPtel: [facility] (15 min) Moderate 01/30/2018 Patient Education: Patient Medication Summary Completed 01/30/2018 Appointment: Karmen Espinal WPtel: [address] [place] [address] (15 min) Moderate 01/28/2018 Appointment: [place] 01/17/2018 Patient Education: Patient Medication Summary Completed 01/17/2018 Visit Plan: Cellulitis - start oral antibiotics as directed, return to clinic as previously directed, call for acute change in symptoms, worsening redness, warmth, discharge. 01/14/2018 Appointment: Karmen Espinal WPtel: [facility] [place] [address] [place] (10 min) Simple 01/14/2018 Patient Education: Patient Medication Summary Completed 01/14/2018 Visit Plan: COPD -recent pneumonia- symptoms have improved but patient continues to feel fatigued- we have reviewed chronic treatment strategy, symptom control, and plans for acute exacerbations. No changes today to the current treatment plan as the patient is stable, monitor for acute changes. Diabetes Mellitus - I have recommended for the patient to have follow up labs prior to the next office visit. The patient has been instructed to continue with current medications as previously directed, continue with regular FSBS monitoring to assure continued control of diabetes. Pt to call for any acute concerns, complaints, or if the blood glucose readings are starting to become less controlled. 01/13/2018 Appointment: Karmen Espinal WPtel: [address] (15 min) Moderate 01/13/2018 Patient Education: Patient Medication Summary Completed 01/13/2018 Referral: Hugo Villatoro [facility]:[phone] [facility] Patient's informed. Referral info ned monroy. Completed 12/04/2017 Visit Plan: Diabetes Mellitus - con purvicarmella - per recent FSBS reports. I have recommended for the patient to have follow up labs prior to the next office visit. The patient has been instructed to continue with current medications as previously directed, continue with regular FSBS monitoring to assure continued control of diabetes. Pt to call for any acute concerns, complaints, or if the blood glucose readings are starting to become less controlled. Hypertension - well controlled - continue with current medications, continue with no added salt diet. Pt has been encouraged to exercise daily. The pt has been advised to call the office if there are any acute concerns about change in blood pressure readings at home. [id number] to see Dr Villatoro Constipation-start linzess daily 11/19/2017 Appointment: Karmen Espinal WPtel: [phone] (30 min) Complex 11/19/2017 Patient Education: Patient Medication Summary Completed 11/19/2017 Care Plan: Referral Order bloating, nausea SNOMED-CT : [id number] Pending 11/19/2017 Visit Plan: Low back pain- the gloria ent was instructed in appropriate posture, need for weight loss to alleviate abdominal obesity that is worsening the patient's back pain.. The pt is to use prn antiinflammatories to manage acute pain. The patient is to call the office if the pain is worsening or does not improve. pt is to increase his fluid intake and notify clinic with any changes, questions, or concerns. COPD - chronic problem for this patient. We have reviewed chronic treatment strategy, symptom control, and plans for acute exacerbations. No changes today to the current treatment plan as the patient is stable, monitor for acute changes. 10/02/2017 Visit Plan: Low back pain- pt is OK to use back brace to help alleviate back pain and allow for pt to continue to participate in activities of daily living - the patient was instructed in appropriate posture, need for weight loss to alleviate abdominal obesity that is worsening the patient's back pain.. The pt is to use prn antiinflammatories to manage acute pain. The patient is to call the office if the pain is worsening or does not improve. pt is to increase his fluid intake and notify clinic with any changes, questions, or concerns. COPD - chronic problem for this patient. We have reviewed chronic treatment strategy, symptom control, and plans for acute exacerbations. No changes today to the current treatment plan as the patient is stable, monitor for acute changes. 10/02/2017 Appointment: [facility] Maravilla [facility]el: [phone] [id number] [place] (15 min) Moderate 10/02/2017 Patient Education: Patient Medication Summary Completed 10/02/2017 Visit Plan: Hypertension - uncontro lled - the patient's medications have been modified as documented in the visit note. The patient has been counseled to cut back on salt in diet for a no added salt diet, low fat d iet, start an exercise program with low weight bearing exercises and higher aerobic activity for heart health. The patient is to check blood pressure readings as an outpatient and either fax, call, or email the readings to the office next week for practitioner to review. The pt is to call for acute concerns. Hyperlipidemia - pt has been counseled about appropriate diet, exercise, and need for low fat food choices. I have discussed the need for the patient to take medications as prescribed. If the patient has negative side effects from the medication, they are to CALL the office and not abruptly disc ontinue the medication without discussion with a practitioner in the office. We will check labs in 3-6 months for follow up on the patient's chronic medical problem and to assure normal liver response to medications. Diabetes Mellitus - controlled - per recent FSBS reports. I have recommended for the patient to have follow up labs prior to the next office visit. The patient has been instructed to continue with current medications as previously directed, continue with regular FSBS monitoring to assure continued control of diabetes. Pt to call for any acute concerns, complaints, or if the blood glucose readings are starting to become less controlled. 07/23/2017 Appointment: Karmen Espinal [facility]Ptel: [phone] [phone] [place] (30 min) Complex 07/23/2017 Patient Education: Patient Medication Summary Completed 07/23/2017 Patient Education: Smoking and Tobacco Addiction Completed 07/23/2017 Patient Education: Hypertension Completed 07/23/2017 Visit Plan: Hypertension - well con trolled - continue with current medications, continue with no added salt diet. Pt has been encouraged to exercise daily. The pt has been advised to call the office if there are any acute concerns about change in blood pressure readings at home. Diabetes Mellitus - controlled - per recent FSBS reports. I have recommended for the patient to have follow up labs prior to the next office visit. The patient has been instructed to continue with current medications as previously directed, continue with regular FSBS monitoring to assure continued control of diabetes. Pt to call for any acute concerns, complaints, or if the blood glucose readings are starting to become less controlled. COPD-samples of breo 1 inhalation daily provided Tobacco use-schedule low dose CT chest-60 pack/year history 04/25/2017 Appointment: Karmen Espinal WPtel: [phone] [phone] (30 min) Complex 04/25/2017 Patient Education: Patient Medication Summary Completed 04/25/2017 Patient Education: Smoking and Tobacco Addiction Completed 04/25/2017 Patient Education: Hypertension Completed 04/25/2017 Patient Education: Patient Medication Summary Completed 02/22/2017 Visit Plan: Hypertension - well con trolled - continue with current medications, continue with no added salt diet. Pt has been encouraged to exercise daily. The pt has been advised to call the office if there are any acute concerns about change in blood pressure readings at home. Diabetes Mellitus - controlled - per recent FSBS reports. I have recommended for the patient to have follow up labs prior to the next office visit. The patient has been instructed to continue with current medications as previously directed, continue with regular FSBS monitoring to assure continued control of diabetes. Pt to call for any acute concerns, complaints, or if the blood glucose readings are starting to become less controlled. Ukifmo-lfwvsev-dsbsr labs 02/19/2017 Appointment: Karmen Espinal WPtel: [phone] [phone] (30 min) Complex 02/19/2017 Patient Education: Patient Medication Summary Completed 02/19/2017 Patient Education: Smoking and Tobacco Addiction Completed 02/19/2017 Patient Education: Hypertension Completed 02/19/2017 Visit Plan: Esophageal Reflux - the patient has been counseled against excessive intake of caffeine, spicy foods, peppermint, and cinnamon - all of which can exacerbate esophageal reflux. The patient is to take medications as prescribed and call the office if the symptoms are not improving. Constipation - uncontrolled - I have discussed with the patient the need for adequate fiber and water intake to facilitate soft, easily passed stools. The pt noted understanding of our conversation. Start miralax daily. The pt is to call if symptoms not improved on this regimen. REFER TO DR DONOHUE FOR EGD/COLONOSCOPY DUE TO INCREASING SYMPTOMS-WEIGHT LOSS-DECREASED APPETITE. PATIENT AND STATES IT HAS BEEN MORE THAN 10 YEARS SINCE SCOPES. HTN- elevated today-monitor at home-follow up in 1 month 01/21/2017 Appointment: Karmen Espinal WPtel: [phone] [phone] (30 min) Complex 01/21/2017 Patient Education: Patient Medication Summary Completed 01/21/2017 Patient Education: Smoking and Tobacco Addiction Completed 01/21/2017 Patient Education: Hypertension Completed 01/21/2017 Care Plan: Referral Order SNOMED-CT : [id number] Pending 01/21/2017 Visit Plan: Diabetes Mellitus - hav e recommended for the patient to have follow up labs prior to the next office visit. The patient has been instructed to continue with current medications as previously directed, c ontinue with regular FSBS monitoring to assure continued control of diabetes. Pt to call for any acute concerns, complaints, or if the blood glucose readings are starting to become less controlled. I have recommended for the patient to follow more strictly to the diabetic diet as discussed in clinic to allow for greater blood glucose control. Vitamin d deficiency-check level today Hypertension - wel l controlled - continue with current medications, continue with no added salt diet. Pt has been encouraged to exercise daily. The pt has been advised to call the office if there are any acute concerns about change in blood pressure readings at home. COPD - chronic problem for this patient. We have reviewed chronic treatment strategy, symptom control, and plans for acute exacerbations. No changes today to the current treatment plan as the patient is stable, monitor for acute changes. 12/20/2016 Appointment: Karmen Espinal WPtel: [phone] [phone] (30 min) Complex 12/20/2016 Patient Education: Patient Medication Summary Completed 12/20/2016 Patient Education: Smoking and Tobacco Addiction Completed 12/20/2016 Patient Education: Hypertension Completed 12/20/2016 Appointment: Karmen Espinal WPtel: [phone] [phone] (30 min) Complex 09/06/2016 Visit Plan: Diabetes Mellitus - con trolled - per recent FSBS reports. I have recommended for the patient to have follow up labs prior to the next office visit. The patient has been instructed to continue with current medications as previously directed, continue with regular FSBS monitoring to assure continued control of diabetes. Pt to call for any acute concerns, complaints, or if the blood glucose readings are starting to become less controlled. Hypertension - well controlled - continue with current medications, continue with no added salt diet. Pt has been encouraged to exercise daily. The pt has been advised to call the office if there are any acute concerns about change in blood pressure readings at home. Hyperlipidemia - pt has been counseled about appropriate diet, exercise, and need for low fat food choices. I have discussed the need for the patient to take medications as prescribed. If the patient has negative side effects from the medication, they are to CALL the office and not abruptly discontinue the medication without discussion with a practitioner in the office. We will check labs in 3-6 months for follow up on the patient's chronic medical problem and to assure normal liver response to me dications. Vitamin d deficiency-check vitamin d level 08/23/2016 Appointment: Karmen Espinal WPtel: [phone] [phone] (30 min) Complex 08/23/2016 Patient Education: Patient Medication Summary Completed 08/23/2016 Patient Education: Smoking and Tobacco Addiction Completed 08/23/2016 Patient Education: Patient Medication Summary Completed 05/23/2016 Visit Plan: Diabetes Mellitus - con trolled - per recent FSBS reports. I have recommended for the patient to have follow up labs prior to the next office visit. The patient has been instructed to continue with current medications as previously directed, continue with regular FSBS monitoring to assure continued control of diabetes. Pt to call for any acute concerns, complaints, or if the blood glucose readings are starting to become less controlled. Hypertension - well controlled - continue with current medications, continue with no added salt diet. Pt has been encouraged to exercise daily. The pt has been advised to call the office if there are any acute concerns about change in blood pressure readings at home. COPD - chronic problem for this patient. We have reviewed chronic treatment strategy, symptom control, and plans for acute exacerbations. No changes today to the current treatment plan as the patient is stable, monitor for acute changes. 05/22/2016 Appointment: Karmen Espinal WPtel: [phone] (30 min) Complex 05/22/2016 Patient Education: Patient Medication Summary Completed 05/22/2016 Patient Education: Smoking and Tobacco Addiction Completed 05/22/2016 Care Plan: Cbc With Differential Ordered 05/22/2016 Care Plan: %Hba1C [facility] C : 17586-6 Ordered 05/22/2016 Care Plan: Tsh Ordered 05/22/2016 Care Plan: Comp Metabolic Ordered 05/22/2016 Visit Plan: Hypertension - well con trolled - continue with current medications, continue with no added salt diet. Pt has been encouraged to exercise daily. The pt has been advised to call the office if there are any acute concerns about change in blood pressure readings at home. Dysuria-UA negative-increase po fluids-call if symptoms do not resolve or if any worse-RX for cipro to take over the weekend of if symptoms worsen-call saturday with update 02/24/2016 Appointment: Karmen Espinal WPtel: [facility]5 [phone] (30 min) Complex 02/24/2016 Patient Education: Patient Medication Summary Completed 02/24/2016 Patient Education: Smoking and Tobacco Addiction Completed 02/24/2016 Patient Education: Hypertension Completed 02/24/2016 Visit Plan: Diabetes Mellitus - con trolled - per recent FSBS reports. I have recommended for the patient to have follow up labs prior to the next office visit. The patient has been instructed to continue with current medications as previously directed, continue with regular FSBS monitoring to assure continued control of diabetes. Pt to call for any acute concerns, complaints, or if the blood glucose readings are starting to become less controlled. Esophageal Reflux - the patient has been counseled against excessive intake of caffeine, spicy foods, peppermint, and cinnamon - all of which can exacerbate esophageal reflux. The patient is to take medications as prescribed and call the office if the symptoms are not improving. Constipation - uncontrolled - I have discussed with the patient the need for adequate fiber and water intake to facilitate soft, easily passed stools. The pt noted understanding of our conversation. I have given the patient a recipe for "power pudding" - equal parts, bran flakes, prune juice, and apple sauce. The pt is to call if symptoms not improved on this regimen. 01/27/2016 Appointment: Karmen Espinal WPtel: [address] [place], [place] [phone] (30 min) Complex 01/27/2016 Patient Education: Patient Medication Summary Completed 01/27/2016 Patient Education: Smoking and Tobacco Addiction Completed 01/27/2016 Visit Plan: Hypertension - well con trolled - continue with current medications, continue with no added salt diet. Pt has been encouraged to exercise daily. The pt has been advised to call the office if there are any acute concerns about change in blood pressure readings at home. Diabetes Mellitus - controlled - per recent FSBS reports. I have recommended for the patient to have follow up labs prior to the next office visit. The patient has been instructed to continue with current medications as previously directed, continue with regular FSBS monitoring to assure continued control of diabetes. Pt to call for any acute concerns, complaints, or if the blood glucose readings are starting to become less controlled. Tobacco abuse - chronic condition for this patient. Patient has been counseled about need to stop smoking due to the negative health affects. Pt has vocalized understanding and states that they will consider smoking cessation, but the pt is not yet ready to use medication to assist cessation. COPD-sample of symbicort Hyperlipidemia - pt has been counseled about appropriate diet, exercise, and need for low fat food choices. I have discussed the need for the patient to take medications as prescribed. If the patient has negative side effects from the medication, they are to CALL the office and not abruptly discontinue the medication without discussion with a practitioner in the office. We will check labs in 3-6 months for follow up on the patient's chronic medical problem and to assure normal liver response to medications. 11/25/2015 Appointment: (30 min) Complex 11/25/2015 Patient Education: Patient Medication Summary Completed 11/25/2015 Patient Education: Smoking and Tobacco Addiction Completed 11/25/2015 Visit Plan: Diabetes Mellitus - con trolled - per recent FSBS reports. I have recommended for the patient to have follow up labs prior to the next office visit. The patient has been instructed to continue with current medications as previously directed, continue with regular FSBS monitoring to assure continued control of diabetes. Pt to call for any acute concerns, complaints, or if the blood glucose readings are starting to become less controlled. Hypertension - well controlled - continue with current medications, continue with no added salt diet. Pt has been encouraged to exercise daily. The pt has been advised to call the office if there are any acute concerns about change in blood pressure readings at home. Vitamin D deficiency-check vitamin D level 07/28/2015 Appointment: (30 min) Complex 07/28/2015 Patient Education: Patient Medication Summary Completed 07/28/2015 Patient Education: Hypertension Completed 07/28/2015 Visit Plan: Hypertension - well con trolled - continue with current medications, continue with no added salt diet. Pt has been encouraged to exercise daily. The pt has been advised to call the office if there are any acute concerns about change in blood pressure readings at home. Diabetes Mellitus - controlled - per recent FSBS reports. I have recommended for the patient to have follow up labs prior to the next office visit. The patient has been instructed to continue with current medications as previously directed, continue with regular FSBS monitoring to assure continued control of diabetes. Pt to call for any acute concerns, complaints, or if the blood glucose readings are starting to become less controlled. 05/26/2015 Appointment: (30 min) Complex 05/26/2015 Patient Education: Patient Medication Summary Completed 05/26/2015 Patient Education: Hypertension Completed 05/26/2015 Patient Education: Patient Medication Summary Completed 05/09/2015 Visit Plan: Diabetes Mellitus - Unc ontrolled - per recent FSBS reports. I have recommended for the patient to have follow up labs prior to the next office visit. The patient has been instructed to continue with current medications as previously directed, continue with regular FSBS monitoring to assure continued control of diabetes. Pt to call for any acute concerns, complaints, or if the blood glucose readings are starting to become less controlled. I have recommended for the patient to follow more strictly to the diabetic diet as discussed in clinic to allow for greater blood glucose control. COPD - chronic problem for this patient. We have reviewed chronic treatment strategy, symptom control, and plans for acute exacerbations. No changes today to the current treatment plan as the patient is stable, monitor for acute changes. Chest xray for persistent cough Hypertension - well controlled - continue with current medications, continue with no added salt diet. Pt has been encouraged to exercise daily. The pt has been advised to call the office if there are any acute concerns about change in blood pressure readings at home. 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 Pt is to receive appropriate treatment as an out patient, but the pt is aware that if symptoms worsen or do not improve, to call STEFANIE for instructions, or go to the EMERGENCY ROOM if the symptoms are beyond acute control with rescue medications. We have reviewed chronic treatment strategy, symptom control, and plans for acute exacerbations. No changes today to the current treatment plan as the patient is stable, monitor for acute changes. Symbicort sample provided and instructed on use-start prednisone as directed-call if symptoms do not improve and we will call out an antibiotic. Diabetes Mellitus -I have recommended for the patient to have follow up labs prior to the next office visit. The patient has been instructed to continue with current medications as previously directed, continue with regular FSBS monitoring to assure continued control of diabetes. Pt to call for any acute concerns, complaints, or if the blood glucose readings are starting to become less controlled. I have recommended for the patient to follow more strictly to the diabetic diet as discussed in clinic to allow for greater blood glucose control. PATIENT WANTS TO START BACK ON GLIPIZIDE- RECOMMEND NOT CHANGING MEDICATIONS FOR THE NEXT MONTH-CONTINUE LEVEMIR AND METFORMIN, MONITOR BLOOD SUGARS AND BRING LOG TO NEXT APPT. INSTRUCTED PATIENT TO START ON 2.5MG TWICE DAILY IF HE IS INSISTENT ON STARTING BACK ON GLIPIZDE BUT THAT I PREFER HE NOT START BACK ON IT DUE TO THE POTENTIAL SIDE EFFECTS AND WORSENING OF SYMPTOMS. [id number] SIMVASTATIN X 2 WEEKS AND CALL WITH UPDATE 04/25/2015 Appointment: (30 min) Complex 04/25/2015 Patient Education: Patient Medication Summary Completed 04/25/2015 Visit Plan: COPD - chronic problem for this patient. We have reviewed chronic treatment strategy, symptom control, and plans for acute exacerbations. No changes today to the current treatment plan as the patient is stable, monitor for acute changes. URI - Pt advised to increase fluids, vitamin C. Discussed natural and expected course of this diagnosis and need to alert me if symptoms do not follow expected course, or if any worse. Kenalog injection today in the office-call if symptoms do not resolve or if any worse Diabetes Mellitus - controlled - per recent FSBS reports. I have recommended for the patient to have follow up labs prior to the next office visit. The patient has been instructed to continue with current medications as previously directed, continue with regular FSBS monitoring to assure continued control of diabetes. Pt to call for any acute concerns, complaints, or if the blood glucose readings are starting to become less controlled. 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 I have recommended for the patient to have follow up labs prior to the next office visit. The patient has been instructed to continue with current medications as previously directed, continue with regular FSBS monitoring to assure continued control of diabetes. Pt to call for any acute concerns, complaints, or if the blood glucose readings are starting to become less controlled. 03/24/2015 Appointment: (15 min) Moderate 03/24/2015 Patient Education: Patient Medication Summary Completed 03/24/2015 Care Plan: COMPLETE CBC AUTOMATED LOINC : 02226-4 Ordered 03/24/2015 Visit Plan: Diabetes Mellitus - dec rease glipizide to 5mg twice daily - x 1 week, then decrease to 5mg in the morning x 1 week then stop. during the decrease of the glipizide, check and record your blood glucose levels and bring to the office for doctor to review at the end of the 2 weeks. use neosporin on the skin lesions on head and face the RX for cream for the skin lesions is called efudex 0.5% (look to see if you still have some at home) Skin change - posterior scalp - referral to Dr. Donohue for removal. 03/07/2015 Appointment: Violeta Ash WPtel: [id number] (15 min) Moderate 03/07/2015 Patient Education: Patient Medication Summary Completed 03/07/2015 Appointment: (15 min) Moderate 02/21/2015 Visit Plan: Fatigue, Unsteady Gait, Dizziness- Check labs and Head CT. Pt encouraged to use walker. and pt verbalize understanding and state that they have one. Further plan pending labs and CT results. COPD, increased shortness of breath- Chest x-ray today. Pt encouraged to stop smoking. Insulin Dependent Diabetes- Check labs today. 02/17/2015 Appointment: (15 min) Moderate 02/17/2015 Patient Education: Patient Medication Summary Completed 02/17/2015 Care Plan: Vitamin D 25 Oh Pending 02/17/2015 Visit Plan: Cerumen Impaction - The impacted cerumen was removed with the use of the ear currette. The patient tolerated the procedure without incident and had improvement in hearing. The wax was [facility] by [facility] ctitioner due to the wax being more complicated to remove, and staff was needed to assist the removal of the wax by holding the ear, and keeping patient stabilized during the removal process. 12/31/2014 Appointment: Sick 12/31/2014 Patient Education: Patient Medication Summary Completed 12/31/2014 Appointment: (S) New Patient 12/24/2014 Appointment: Follow up 12/23/2014 Patient Education: Patient Medication Summary Completed 12/23/2014 Patient Education: Hypertension Completed 12/23/2014 Care Plan: COMPLETE CBC AUTOMATED LOINC : 77692-5 Ordered 12/23/2014 Visit Plan: BPPV - Benign Paroxysma l Positional Vertigo - discussed diagnosis with the patient, offered the pt the appropriate additional information in hand-out. Pt instructed in home exercises to help alleviate and prevent future recurrent episodes of vertigo. RX sent to pharmacy. Pt informed that if symptoms worsen, call the office for further instructions/medication interventions. Diabetes Mellitus - I have recommended for the patient to have follow up labs prior to the next office visit. The patient has been instructed to continue with current medications as previously directed, continue with regular FSBS monitoring to assure continued control of diabetes. Pt to call for any acute concerns, complaints, or if the blood glucose readings are starting to become less controlled. BRING BLOOD SUGAR LOG TO NEXT APPOINTMENT Osteoarthritis- RX for Hydrocodone refill given to patient. Cerumen impaction- unable to remove all of cerumen-use sweet oil at HS and will check at next appt 12/09/2014 Appointment: Karmen Espinal [facility]el: [phone] [id number] [place] ([place]) New Patient 12/09/2014 Patient Education: Patient Medication Summary Completed 12/09/2014 Patient Education: .Amazing charts Parox ysmal positional vertigo Completed 12/09/2014 Patient Education: Smoking and Tobacco Addiction Completed 12/09/2014 [phone] [id number] [place] Referral Appointment Requested Referral: Luis Donohue Referral Appointment Requested Instructions Comment . Hypertension - wel l controlled - continue with current medications, continue with no added salt diet. Pt has been encouraged to exercise daily. The pt has been advised to call the office if there are any acute concerns about change in blood pressure readings at home. COPD - chronic problem for this patient. We have reviewed chronic treatment strategy, symptom control, and plans for acute exacerbations. No changes today to the current treatment plan as the patient is stable, monitor for acute changes. Diabetes Mellitus - Uncontrolled - per recent FSBS reports. I have recommended for the patient to have follow up labs prior to the next office visit. The patient has been instructed to continue with current medications as previously directed, continue with regular FSBS monitoring to assure continued control of diabetes. Pt to call for any acute concerns, complaints, or if the blood glucose readings are starting to become less controlled. I have recommended for the patient to follow more strictly to the diabetic diet as discussed in clinic to allow for greater blood glucose control. Chronic Back pain - the patient was counseled to always first attempt to use modalities other than pain medication for alleviation of the muscle spasms and pain. The patient was also encouraged to continue with back exercises as previously directed. Pt is to use pain medication as directed. If pain medications are used inappropriately or early refills are requested, the patient understands that is a breech of trust/contract and could result in the patient's termination from this medical practice. Weight loss-increase snacks as discussed-follow up in 1 month . Hypertension - wel l controlled - continue with current medications, continue with no added salt diet. Pt has been encouraged to exercise daily. The pt has been advised to call the office if there are any acute concerns about change in blood pressure readings at home. COPD - chronic problem for this patient. We have reviewed chronic treatment strategy, symptom control, and plans for acute exacerbations. No changes today to the current treatment plan as the patient is stable, monitor for acute changes. Diabetes Mellitus - Uncontrolled - per recent FSBS reports. I have recommended for the patient to have follow up labs prior to the next office visit. The patient has been instructed to continue with current medications as previously directed, continue with regular FSBS monitoring to assure continued control of diabetes. Pt to call for any acute concerns, complaints, or if the blood glucose readings are starting to become less controlled. I have recommended for the patient to follow more strictly to the diabetic diet as discussed in clinic to allow for greater blood glucose control. Chronic Back pain - the patient was counseled to always first attempt to use modalities other than pain medication for alleviation of the muscle spasms and pain. The patient was also encouraged to continue with back exercises as previously directed. Pt is to use pain medication as directed. If pain medications are used inappropriately or early refills are requested, the patient understands that is a breech of trust/contract and could result in the patient's termination from this medical practice. Weight loss-increase snacks as discussed-follow up in 1 month Symbicort 2 puffs tw ice daily . Diabetes Mellitus - have recommended for the patient to have follow up labs prior to the next office visit. The patient has been instructed to continue with current medications as previously directed, continue with regular FSBS monitoring to assure continued control of diabetes. Pt to call for any acute concerns, complaints, or if the blood glucose readings are starting to become less controlled. I have recommended for the patient to follow more strictly to the diabetic diet as discussed in clinic to allow for greater blood glucose control. Vitamin d deficiency-check level today Hypertension - well controlled - continue with current medications, continue with no added salt diet. Pt has been encouraged to exercise daily. The pt has been advised to call the office if there are any acute concerns about change in blood pressure readings at home. COPD - chronic problem for this patient. We have reviewed chronic treatment strategy, symptom control, and plans for acute exacerbations. No changes today to the current treatment plan as the patient is stable, monitor for acute changes. CALL IF THE KENALOG SHOT DOES NOT HELP YOUR COUGH/CONGESTION . COPD - chronic problem for this mariana t. We have reviewed chronic treatment strategy, symptom control, and plans for acute exacerbations. No changes today to the current treatment plan as the patient is stable, monitor for acute changes. URI - Pt advised to increase fluids, vitamin C. Discussed natural and expected course of this diagnosis and need to alert me if symptoms do not follow expected course, or if any worse. Kenalog injection today in the office-call if symptoms do not resolve or if any worse Diabetes Mellitus - controlled - per recent FSBS reports. I have recommended for the patient to have follow up labs prior to the next office visit. The patient has been instructed to continue with current medications as previously directed, continue with regular FSBS monitoring to assure continued control of diabetes. Pt to call for any acute concerns, complaints, or if the blood glucose readings are starting to become less controlled. AK-left ear-cryotherapy to lesion today in the office-wound instructions provided . Cellulitis - start oral antibiotics as directed, return to clinic as previously directed, call for acute change in symptoms, worsening redness, warmth, discharge. . Hypertension - wel l controlled - continue with current medications, continue with no added salt diet. Pt has been encouraged to exercise daily. The pt has been advised to call the office if there are any acute concerns about change in blood pressure readings at home. Dysuria-UA negative-increase po fluids-call if symptoms do not resolve or if any worse-RX for cipro to take over the weekend of if symptoms worsen-call saturday with update jardiance 10mg daily . Hypertension - well controlled - tierney nue with current medications, continue with no added salt diet. Pt has been encouraged to exercise daily. The pt has been advised to call the office if there are any acute concerns about change in blood pressure readings at home. Diabetes Mellitus - Uncontrolled- I have recommended for the patient to have follow up labs prior to the next office visit. The patient has been instructed to continue with current medications as previously directed, continue with regular FSBS monitoring to assure continued control of diabetes. Pt to call for any acute concerns, complaints, or if the blood glucose readings are starting to become less controlled. I have recommended for the patient to follow more strictly to the diabetic diet as discussed in clinic to allow for greater blood glucose control. COPD - chronic problem for this patient. We have reviewed chronic treatment strategy, symptom control, and plans for acute exacerbations. No changes today to the current treatment plan as the patient is stable, monitor for acute changes. Low Testosterone-continue injections monthly -repeat labs in 2 months Miralax 1 packet laron ry other day. If that causes loose stools take 1 packet every 3 days. If it is not soft enough, take 1 packet daily Stop omeprazole and start Protonix . Diabetes Mellitus - controlled - per r ecent FSBS reports. I have recommended for the patient to have follow up labs prior to the next office visit. The patient has been instructed to continue with current medications as previously directed, continue with regular FSBS monitoring to assure continued control of diabetes. Pt to call for any acute concerns, complaints, or if the blood glucose readings are starting to become less controlled. Esophageal Reflux - the patient has been counseled against excessive intake of caffeine, spicy foods, peppermint, and cinnamon - all of which can exacerbate esophageal reflux. The patient is to take medications as prescribed and call the office if the symptoms are not improving. Constipation - uncontrolled - I have discussed with the patient the need for adequate fiber and water intake to facilitate soft, easily passed stools. The pt noted understanding of our conversation. I have given the patient a recipe for "power pudding" - equal parts, bran flakes, prune juice, and apple sauce. The pt is to call if symptoms not improved on this regimen. decrease glipizide t o 5mg twice daily - x 1 week, then decrease to 5mg in the morning x 1 week then stop. during the decrease of the glipizide, check and record your blood glucose levels and bring to the office for doctor to review at the end of the 2 weeks. use neosporin on the skin lesions on head and face the RX for cream for the skin lesions is called efudex 0.5% . Diabetes Mellitus - decrease glipizide to 5mg twice daily - x 1 week, then decrease to 5mg in the morning x 1 week then stop. during the decrease of the glipizide, check and record your blood glucose levels and bring to the office for doctor to review at the end of the 2 weeks. use neosporin on the skin lesions on head and face the RX for cream for the skin lesions is called efudex 0.5% (look to see if you still have some at home) Skin change - posterior scalp - referral to Dr. Donohue for removal. . Esophageal Reflux - the patient has been counseled against excessive intake of caffeine, spicy foods, peppermint, and cinnamon - all of which can exacerbate esophageal reflux. The patient is to take medications as prescribed and call the office if the symptoms are not improving. Constipation - uncontrolled - I have discussed with the patient the need for adequate fiber and water intake to facilitate soft, easily passed stools. The pt noted understanding of our conversation. Start miralax daily. The pt is to call if symptoms not improved on this regimen. REFER TO DR DONOHUE FOR EGD/COLONOSCOPY DUE TO INCREASING SYMPTOMS-WEIGHT LOSS- DECREASED APPETITE. PATIENT AND STATES IT HAS BEEN MORE THAN 10 YEARS SINCE SCOPES. HTN-elevated today-monitor at home-follow up in 1 month . Hypertension - wel l controlled - continue with current medications, continue with no added salt diet. Pt has been encouraged to exercise daily. The pt has been advised to call the office if there are any acute concerns about change in blood pressure readings at home. COPD - chronic problem for this patient. We have reviewed chronic treatment strategy, symptom control, and plans for acute exacerbations. No changes today to the current treatment plan as the patient is stable, monitor for acute changes. Diabetes Mellitus - Uncontrolled - per recent FSBS reports. I have recommended for the patient to have follow up labs prior to the next office visit. The patient has been instructed to continue with current medications as previously directed, continue with regular FSBS monitoring to assure continued control of diabetes. Pt to call for any acute concerns, complaints, or if the blood glucose readings are starting to become less controlled. I have recommended for the patient to follow more strictly to the diabetic diet as discussed in clinic to allow for greater blood glucose control. Chronic Back pain - the patient was counseled to always first attempt to use modalities other than pain medication for alleviation of the muscle spasms and pain. The patient was also encouraged to continue with back exercises as previously directed. Pt is to use pain medication as directed. If pain medications are used inappropriately or early refills are requested, the patient understands that is a breech of trust/contract and could result in the patient's termination from this medical practice. Weight loss-increase snacks as discussed-follow up in 1 month BRING BLOOD SUGAR LO G TO NEXT APPOINTMENT MECLIZINE 25MG 1 TAB EVERY 6 HOURS NEEDED FOR DIZZINESS BPPV EXERCISES PRINTOUT-DO THIS 2-3 TIMES PER DAY AT HOME-IT MAY MAKE YOU DIZZY WHILE YOU DO THEM BUT IT WILL EVENTUALLY GO AWAY . BPPV - Benign Paroxysmal Positional Ve rtigo - discussed diagnosis with the patient, offered the pt the appropriate additional information in hand-out. Pt instructed in home exercises to help alleviate and prevent future recurrent episodes of vertigo. RX sent to pharmacy. Pt informed that if symptoms worsen, call the office for further instructions/medication interventions. Diabetes Mellitus - I have recommended for the patient to have follow up labs prior to the next office visit. The patient has been instructed to continue with current medications as previously directed, continue with regular FSBS monitoring to assure continued control of diabetes. Pt to call for any acute concerns, complaints, or if the blood glucose readings are starting to become less controlled. BRING BLOOD SUGAR LOG TO NEXT APPOINTMENT Osteoarthritis- RX for Hydrocodone refill given to patient. Cerumen impaction-unable to remove all of cerumen-use sweet oil at HS and will check at next appt . Medicare Exam - to day we discussed the patients past history, immunizations, preventative exams/evaluations - colonoscopy, fecal occult blood testing, routine labs for renal function, glucose, cholesterol, osteoporosis evaluations, cardiovascular testing and cancer screenings. We have also discussed mental health and the signs/symptoms of depression. The patient was advised of home safety evaluations and the need to make sure that as the aging process continues, we need to be aware of different ways to make the home a safer place to reside. The patient has also been counseled that exercise is necessary - and of utmost importance as we age to help decrease fall risk and to maintain independence in the home. Today we discussed the need for the patient to create paperwork for Advanced directives as well as for the patient to provide this office with a copy of her DOP[place] paperwork for health care surrogate. . Low back pain- the patient was instructed in appropriate posture, need for weight loss to alleviate abdominal obesity that is worsening the patient's back pain.. The pt is to use prn antiinflammatories to manage acute pain. The patient is to call the office if the pain is worsening or does not improve. pt is to increase his fluid intake and notify clinic with any changes, questions, or concerns. COPD - chronic problem for this patient. We have reviewed chronic treatment strategy, symptom control, and plans for acute exacerbations. No changes today to the current treatment plan as the patient is stable, monitor for acute changes. . Low back pain- pt is OK to use back brace to help alleviate back pain and allow for pt to continue to participate in activities of daily living - the patient was instructed in appropriate posture, need for weight loss to alleviate abdominal obesity that is worsening the patient's back pain.. The pt is to use prn antiinflammatories to manage acute pain. The patient is to call the office if the pain is worsening or does not improve. pt is to increase his fluid intake and notify clinic with any changes, questions, or concerns. COPD - chronic problem for this patient. We have reviewed chronic treatment strategy, symptom control, and plans for acute exacerbations. No changes today to the current treatment plan as the patient is stable, monitor for acute changes. . Hypertension - wel l controlled - continue with current medications, continue with no added salt diet. Pt has been encouraged to exercise daily. The pt has been advised to call the office if there are any acute concerns about change in blood pressure readings at home. Diabetes Mellitus - controlled - per recent FSBS reports. I have recommended for the patient to have follow up labs prior to the next office visit. The patient has been instructed to continue with current medications as previously directed, continue with regular FSBS monitoring to assure continued control of diabetes. Pt to call for any acute concerns, complaints, or if the blood glucose readings are starting to become less controlled. COPD - chronic problem for this patient. We have reviewed chronic treatment strategy, symptom control, and plans for acute exacerbations. No changes today to the current treatment plan as the patient is stable, monitor for acute changes. Hyperlipidemia - pt has been counseled about appropriate diet, exercise, and need for low fat food choices. I have discussed the need for the patient to take medications as prescribed. If the patient has negative side effects from the medication, they are to CALL the office and not abruptly discontinue the medication without discussion with a practitioner in the office. We will check labs in 3-6 months for follow up on the patient's chronic medical problem and to assure normal liver response to medications. . Hypertension - wel l controlled - continue with current medications, continue with no added salt diet. Pt has been encouraged to exercise daily. The pt has been advised to call the office if there are any acute concerns about change in blood pressure readings at home. Diabetes Mellitus - controlled - per recent FSBS reports. I have recommended for the patient to have follow up labs prior to the next office visit. The patient has been instructed to continue with current medications as previously directed, continue with regular FSBS monitoring to assure continued control of diabetes. Pt to call for any acute concerns, complaints, or if the blood glucose readings are starting to become less controlled. Sntnsb-wdbovwj-izgjd labs . COPD -recent pneum onia-symptoms have improved but patient continues to feel fatigued- we have reviewed chronic treatment strategy, symptom control, and plans for acute exacerbations. No changes today to the current treatment plan as the patient is stable, monitor for acute changes. Diabetes Mellitus - I have recommended for the patient to have follow up labs prior to the next office visit. The patient has been instructed to continue with current medications as previously directed, continue with regular FSBS monitoring to assure continued control of diabetes. Pt to call for any acute concerns, complaints, or if the blood glucose readings are starting to become less controlled. . Orthostatic hypote nsion -recommend patient pump legs before standing -change positions slowly- monitor blood pressures Chronic Pain Syndrome - pt has chronic pain - has been maintained on current medications, has not sought out other medications, only uses PRN pain medications as directed, and understands the consequences of over-medication. Gait instability-recommend patient use a walker . Cerumen Impaction - The impacted cerumen was removed with the use of the ear currette. The patient tolerated the procedure without incident and had improvement in hearing. The wax was removed by the practitioner due to the wax being more complicated to remove, and staff was needed to assist the removal of the wax by holding the ear, and keeping patient stabilized during the removal process. CHECK UA TORADOL INCREASE PO FLUIDS STRETCHES AND MUSCLE RUB . Low back pain -history of kidney stone -UA negative today -increase fluids and call if pain does not resolve or if any worse. Refer to Dr Irving marino or evaluation DX bloating, nausea Linzess 72mcg daily check labs . Diabetes Mellitus - controlled - per r ecent FSBS reports. I have recommended for the patient to have follow up labs prior to the next office visit. The patient has been instructed to continue with current medications as previously directed, continue with regular FSBS monitoring to assure continued control of diabetes. Pt to call for any acute concerns, complaints, or if the blood glucose readings are starting to become less controlled. Hypertension - well controlled - continue with current medications, continue with no added salt diet. Pt has been encouraged to exercise daily. The pt has been advised to call the office if there are any acute concerns about change in blood pressure readings at home. Vtpoluzo-dbyawo-jmhfw to see Dr Villatoro Constipation-start linzess daily Symbicort 2 puffs tw ice daily . Hypertension - well controlled - tierney nue with current medications, continue with no added salt diet. Pt has been encouraged to exercise daily. The pt has been advised to call the office if there are any acute concerns about change in blood pressure readings at home. Diabetes Mellitus - controlled - per recent FSBS reports. I have recommended for the patient to have follow up labs prior to the next office visit. The patient has been instructed to continue with current medications as previously directed, continue with regular FSBS monitoring to assure continued control of diabetes. Pt to call for any acute concerns, complaints, or if the blood glucose readings are starting to become less controlled. Tobacco abuse - chronic condition for this patient. Patient has been counseled about need to stop smoking due to the negative health affects. Pt has vocalized understanding and states that they will consider smoking cessation, but the pt is not yet ready to use medication to assist cessation. COPD-sample of symbicort Hyperlipidemia - pt has been counseled about appropriate diet, exercise, and need for low fat food choices. I have discussed the need for the patient to take medications as prescribed. If the patient has negative side effects from the medication, they are to CALL the office and not abruptly discontinue the medication without discussion with a practitioner in the office. We will check labs in 3-6 months for follow up on the patient's chronic medical problem and to assure normal liver response to medications. KENALOG ANORO 1 INHALATION DAILY . COPD EXACERBATION - COPD is a chronic problem for this patient, however, the pt is experiencing an acute exacerbation of the COPD. Pt is to receive appropriate treatment as an out patient, but the pt is aware that if symptoms worsen or do not improve, to call ST[facility] for instructions, or go to the EMERGENCY ROOM if the symptoms are beyond acute control with rescue medications. We have reviewed chronic treatment strategy, symptom control, and plans for acute exacerbations. No changes today to the current treatment plan as the patient is stable, monitor for acute changes. . Diabetes Mellitus - I have recommended for the patient to have follow up labs prior to the next office visit. The patient has been instructed to continue with current medications as previously directed, continue with regular FSBS monitoring to assure continued control of diabetes. Pt to call for any acute concerns, complaints, or if the blood glucose readings are starting to become less controlled. Hypertension - well controlled - continue with current medications, continue with no added salt diet. Pt has been encouraged to exercise daily. The pt has been advised to call the office if there are any acute concerns about change in blood pressure readings at home. Abscess/Cellulitis - The patient was instructed in appropriate wound care. The patient was instructed to use the antibiotic ointment as per RX. The patient is to call for any change in symptoms, increase in size of the lesion, increase in pain. FLU SHOT . Diabetes Mellitus - controlled - per r ent FSBS reports. I have recommended for the patient to have follow up labs prior to the next office visit. The patient has been instructed to continue with current medications as previously directed, continue with regular FSBS monitoring to assure continued control of diabetes. Pt to call for any acute concerns, complaints, or if the blood glucose readings are starting to become less controlled. Hypertension - well controlled - continue with current medications, continue with no added salt diet. Pt has been encouraged to exercise daily. The pt has been advised to call the office if there are any acute concerns about change in blood pressure readings at home. COPD - chronic problem for this patient. We have reviewed chronic treatment strategy, symptom control, and plans for acute exacerbations. No changes today to the current treatment plan as the patient is stable, monitor for acute changes. HOLD SIMVASTATIN X 2 WEEKS -CALL ME WITH UPDATE IN 2 WEEKS- ARE THE LEG ACHES AND WEAKNESS ANY BETTER? PREDNISONE 20MG TWICE DAILY X 5 DAYS CALL IF COUGH DOES NOT IMPROVE OR NEW SYMPTOMS DEVELOP AND I WILL CALL IN AN ANTIBIOTIC . COPD EXACERBATION - COPD is a chronic problem for this patient, however, the pt is experiencing an acute exacerbation of the COPD. Pt is to receive appropriate treatment as an out patient, but the pt is aware that if symptoms worsen or do not improve, to call [facility] for instructions, or go to the EMERGENCY ROOM if the symptoms are beyond acute control with rescue medications. We have reviewed chronic treatment strategy, symptom control, and plans for acute exacerbations. No changes today to the current treatment plan as the patient is stable, monitor for acute changes. Symbicort sample provided and instructed on use-start prednisone as directed- call if symptoms do not improve and we will call out an antibiotic. Diabetes Mellitus -I have recommended for the patient to have follow up labs prior to the next office visit. The patient has been instructed to continue with current medications as previously directed, continue with regular FSBS monitoring to assure continued control of diabetes. Pt to call for any acute concerns, complaints, or if the blood glucose readings are starting to become less controlled. I have recommended for the patient to follow more strictly to the diabetic diet as discussed in clinic to allow for greater blood glucose control. PATIENT WANTS TO START BACK ON GLIPIZIDE-RECOMMEND NOT CHANGING MEDICATIONS FOR THE NEXT MONTH-CONTINUE LEVEMIR AND METFORMIN, MONITOR BLOOD SUGARS AND BRING LOG TO NEXT APPT. INSTRUCTED PATIENT TO START ON 2.5MG TWICE DAILY IF HE IS INSISTENT ON STARTING BACK ON GLIPIZDE BUT THAT I PREFER HE NOT START BACK ON IT DUE TO THE POTENTIAL SIDE EFFECTS AND WORSENING OF SYMPTOMS. [id number] SIMVASTATIN X 2 WEEKS AND CALL WITH UPDATE MELATONIN FOR SLEEP -START WITH 3MG AT BEDTIME -OKAY TO INCREASE TO 3 PILLS AT BEDTIME NEEDED Spiriva daily -sample provided and instructed on use . COPD - chronic problem for this patient. We have reviewed chronic treatment strategy, symptom control, and plans for acute exacerbations. No changes today to the current treatment plan as the patient is stable, monitor for acute changes. Diabetes Mellitus - controlled - per recent FSBS reports. I have recommended for the patient to have follow up labs prior to the next office visit. The patient has been instructed to continue with current medications as previously directed, continue with regular FSBS monitoring to assure continued control of diabetes. Pt to call for any acute concerns, complaints, or if the blood glucose readings are starting to become less controlled. Insomnia- recommend patient try melatonin as directed . Fatigue, Unsteady Gait, Dizziness- Check labs and Head CT. Pt encouraged to use walker. and pt verbalize understanding and state that they have one. Further plan pending labs and CT results. COPD, increased shortness of breath- Chest x-ray today. Pt encouraged to stop smoking. Insulin Dependent Diabetes- Check labs today. STOP THE GLIPIZIDE CALL IF BLOOD SUGARS ARE CONSISENTLY OVER 200 AND WE FIDEL INCREASE YOUR LANTUS- OTHERWISE CONTINUE 25 UNITS DAILY FOR NOW AND BRING YOUR LOG TO YOUR NEXTAPPOINTMENT . Diabetes Mellitus - controlled - per r ecent FSBS reports. I have recommended for the patient to have follow up labs prior to the next office visit. The patient has been instructed to continue with current medications as previously directed, continue with regular FSBS monitoring to assure continued control of diabetes. Pt to call for any acute concerns, complaints, or if the blood glucose readings are starting to become less controlled. . Diabetes Mellitus - controlled - per recent FSBS reports. I have recommended for the patient to have follow up labs prior to the next office visit. The patient has been instructed to continue with current medications as previously directed, continue with regular FSBS monitoring to assure continued control of diabetes. Pt to call for any acute concerns, complaints, or if the blood glucose readings are starting to become less controlled. Hypertension - well controlled - continue with current medications, continue with no added salt diet. Pt has been encouraged to exercise daily. The pt has been advised to call the office if there are any acute concerns about change in blood pressure readings at home. Vitamin D deficiency-check vitamin D level . Diabetes Mellitus - controlled - per recent FSBS reports. I have recommended for the patient to have follow up labs prior to the next office visit. The patient has been instructed to continue with current medications as previously directed, continue with regular FSBS monitoring to assure continued control of diabetes. Pt to call for any acute concerns, complaints, or if the blood glucose readings are starting to become less controlled. Hypertension - well controlled - continue with current medications, continue with no added salt diet. Pt has been encouraged to exercise daily. The pt has been advised to call the office if there are any acute concerns about change in blood pressure readings at home. Hyperlipidemia - pt has been counseled about appropriate diet, exercise, and need for low fat food choices. I have discussed the need for the patient to take medications as prescribed. If the patient has negative side effects from the medication, they are to CALL the office and not abruptly discontinue the medication without discussion with a practitioner in the office. We will check labs in 3-6 months for follow up on the patient's chronic medical problem and to assure normal liver response to medications. Vitamin d deficiency-check vitamin d level . Hypertension - wel l controlled - continue with current medications, continue with no added salt diet. Pt has been encouraged to exercise daily. The pt has been advised to call the office if there are any acute concerns about change in blood pressure readings at home. Diabetes Mellitus - controlled - per recent FSBS reports. I have recommended for the patient to have follow up labs prior to the next office visit. The patient has been instructed to continue with current medications as previously directed, continue with regular FSBS monitoring to assure continued control of diabetes. Pt to call for any acute concerns, complaints, or if the blood glucose readings are starting to become less controlled. RESTART SIMVASTATIN START TOUJEO AT 30 UNITS DAILY-IF BLOOD SUGARS STILL OVER 200, INCREASE TO 35 UNITS DAILY . Diabetes Mellitus - Uncontrolled - per recent FSBS reports. I have recommended for the patient to have follow up labs prior to the next office visit. The patient has been instructed to continue with current medications as previously directed, continue with regular FSBS monitoring to assure continued control of diabetes. Pt to call for any acute concerns, complaints, or if the blood glucose readings are starting to become less controlled. I have recommended for the patient to follow more strictly to the diabetic diet as discussed in clinic to allow for greater blood glucose control. COPD - chronic problem for this patient. We have reviewed chronic treatment strategy, symptom control, and plans for acute exacerbations. No changes today to the current treatment plan as the patient is stable, monitor for acute changes. Chest xray for persistent cough Hypertension - well controlled - continue with current medications, continue with no added salt diet. Pt has been encouraged to exercise daily. The pt has been advised to call the office if there are any acute concerns about change in blood pressure readings at home. RETURN FOR LABS GAIL SOLA CONTINUOUS GLUCOSE MONITOR CHEST XRAY . COPD - chronic problem for this patien t. We have reviewed chronic treatment strategy, symptom control, and plans for acute exacerbations. No changes today to the current treatment plan as the patient is stable, monitor for acute changes. [facility] tobacco use -weight loss-order for chest xray provided DM -rx for CGM -patient is due for labs Low testosterone -check level INCREASE LISINOPRIL TO 10MG TWICE DAILY RETURN FOR FASTING LABS . Hypertension - uncontrolled - the gloria ent's medications have been modified as documented in the visit note. The patient has been counseled to cut back on salt in diet for a no added salt diet, low fat diet, start an exercise program with low weight bearing exercises and higher aerobic activity for heart health. The patient is to check blood pressure readings as an outpatient and either fax, call, or email the readings to the office next week for practitioner to review. The pt is to call for acute concerns. Hyperlipidemia - pt has been counseled about appropriate diet, exercise, and need for low fat food choices. I have discussed the need for the patient to take medications as prescribed. If the patient has negative side effects from the medication, they are to CALL the office and not abruptly discontinue the medication without discussion with a practitioner in the office. We will check labs in 3-6 months for follow up on the patient's chronic medical problem and to assure normal liver response to medications. Diabetes Mellitus - controlled - per recent FSBS reports. I have recommended for the patient to have follow up labs prior to the next office visit. The patient has been instructed to continue with current medications as previously directed, continue with regular FSBS monitoring to assure continued control of diabetes. Pt to call for any acute concerns, complaints, or if the blood glucose readings are starting to become less controlled. flu/prevnar . Hypertension - well controlled - tierney nue with current medications, continue with no added salt diet. Pt has been encouraged to exercise daily. The pt has been advised to call the office if there are any acute concerns about change in blood pressure readings at home. Diabetes Mellitus - controlled - per recent FSBS reports. I have recommended for the patient to have follow up labs prior to the next office visit. The patient has been instructed to continue with current medications as previously directed, continue with regular FSBS monitoring to assure continued control of diabetes. Pt to call for any acute concerns, complaints, or if the blood glucose readings are starting to become less controlled. COPD-samples of breo 1 inhalation daily provided Tobacco use-schedule low dose CT chest-60 pack/year history
--- OUTSIDE RECORDS SUMMARY | 2020-03-29 07:27 | XMS REPORT | CCD ---
Author Author Dick Espinal Organization [facility] Address [address] [place] [address] Phone Care Team Providers Care Event Designer Name Role Phone PP Unavailable CCM Unavailable Summary Purpose Interface Exchange Insurance Providers Payer name Policy type / Coverage type Covered republican ID Effective Begin Date Effective End Date WPS Medicare Part B Medicare Part B [id number] Unknown Unknown [employer] [place] Medicare Part B [id number] Unknown Unknown Family history Father Diagnosis Age At Onset Cancer Unknown Mother Diagnosis Age At Onset Cancer Unknown Social History Social History Element Codes Description Effective Dates Number of cigarettes/day Unknown 20 (One Pack) 03/03/2019 Marital status Unknown M arried 12/09/2014 Employment Unknown Retir ed 12/09/[address]: 59443344 Currently smokes tobacco 12/09/2014 Number of years using tobacco Unknown > 50 12/09/[address]: 737961200 Never drinks alcohol 12/09/2014 Allergies, Adverse Reactions, [...] Date Stop Date Sta tus Fill Instructions hydrocodone 5 mg-linh taminophen 325 mg tablet RxNorm: 344915 1 Tablet(s) PO Q6-8H as needed 04/15/2019 05/09/2019 Active testosterone cypiona te 200 mg/mL intramuscular oil RxNorm: 5915224 Milliliter(s) IM 03/31/2019 03/31/2019 In active testosterone cypiona te 200 mg/mL intramuscular oil RxNorm: 2493131 Milliliter(s) IM 03/17/2019 03/17/2019 In active hydrocodone 5 mg-linh taminophen 325 mg tablet RxNorm: 095519 1 Tablet(s) PO Q6-8H as needed 03/17/2019 04/10/2019 Inactive Toujeo SoloStar U-30 0 Insulin 300 unit/mL (1.5 mL) subcutaneous pen RxNorm: 0094695 35 Unit(s) SQ QHS 03/05/2019 07/02/2019 Active Dosage change! testosterone cypiona te 200 mg/mL intramuscular oil RxNorm: 2126007 1/2 Milliliter(s) IM 03/04/2019 03/04/2019 Inactive Toujeo SoloStar U-30 0 Insulin 300 unit/mL (1.5 mL) subcutaneous pen RxNorm: 4473418 30 Unit(s) SQ QHS 03/03/2019 03/04/2019 Inactive Xanax 0.5 mg tablet RxNorm: 173269 Tablet(s) as needed TAKE ONE TABLET BY M OUTH THREE TIMES A DAY 02/19/2019 04/19/2019 Active Xanax 0.5 mg tablet RxNorm: 808412 Tablet(s) TAKE ONE TABLET BY MOUTH THREE TIMES A DAY 02/19/2019 02/18/2019 Inactive hydrocodone 5 mg-linh taminophen 325 mg tablet RxNorm: 384453 1 Tablet(s) PO Q6-8H as needed 02/16/2019 03/12/2019 Inactive testosterone cypiona te 200 mg/mL intramuscular oil RxNorm: 7570470 Milliliter(s) IM 02/16/2019 02/16/2019 In active Protonix 40 mg table t,delayed release RxNorm: 558581 TAKE 1 TABLET BY MOUT H DAILY 02/02/2019 01/27/2020 Ac tive - Ref: [id number] simvastatin 40 mg ta blet RxNorm: 708685 TAKE 1 TABLET BY MOUT H DAILY AT BEDTIME 02/02/2019 01/27/2020 Ac tive - Ref: [id number] testosterone cypiona te 200 mg/mL intramuscular oil RxNorm: 0876381 Milliliter(s) IM 01/30/2019 01/30/2019 In active testosterone cypiona te 200 mg/mL intramuscular oil RxNorm: 2284250 1/2 Milliliter(s) IM [id number] 01/16/2019 05/15/2019 Active testosterone cypiona te 200 mg/mL intramuscular oil RxNorm: 3509676 Milliliter(s) IM 01/16/2019 01/16/2019 In active hydrocodone 5 mg-linh taminophen 325 mg tablet RxNorm: 062911 1 Tablet(s) PO Q6-8H as needed 01/14/2019 02/07/2019 Inactive testosterone cypiona te 200 mg/mL intramuscular oil RxNorm: 2430551 Milliliter(s) IM 01/01/2019 01/01/2019 In active Xanax 0.5 mg tablet RxNorm: 568124 1 Tablet(s) PO TID 12/18/2018 02/14/2019 Inactive testosterone cypiona te 200 mg/mL intramuscular oil RxNorm: 2922572 Milliliter(s) IM 12/17/2018 12/17/2018 In active hydrocodone 5 mg-linh taminophen 325 mg tablet RxNorm: 095193 1 Tablet(s) PO Q6-8H as needed 12/15/2018 01/08/2019 Inactive testosterone cypiona te 200 mg/mL intramuscular oil RxNorm: 1433755 Milliliter(s) IM 12/02/2018 12/02/2018 In active testosterone cypiona te 200 mg/mL intramuscular oil RxNorm: 2631744 Milliliter(s) IM 11/18/2018 11/18/2018 In active hydrocodone 5 mg-linh taminophen 325 mg tablet RxNorm: 329509 1 Tablet(s) PO Q6-8H as needed 11/13/2018 12/07/2018 Inactive testosterone cypiona te 200 mg/mL intramuscular oil RxNorm: 1509352 1/2 Milliliter(s) IM [id number] 11/04/2018 01/15/2019 Inactive testosterone cypiona te 200 mg/mL intramuscular oil RxNorm: 4636310 Milliliter(s) IM 11/04/2018 11/04/2018 In active nicotine 21 mg/24 hr daily transdermal patch RxNorm: 303095 1 TD daily 10/31/2018 10/30/2018 In active nicotine 21 mg/24 hr daily transdermal patch RxNorm: 898691 1 TD daily 10/31/2018 11/29/2018 In active meclizine 25 mg tablet RxNorm: 022942 1 Tablet(s) PO Q6 PRN TAKE ONE TABLET BY MOUTH EVERY 6 HOURS NEEDED 10/17/2018 01/14/2019 Inactive hydrocodone 5 mg-linh taminophen 325 mg tablet RxNorm: 791966 1 Tablet(s) PO Q6-8H as needed 10/17/2018 11/10/2018 Inactive metformin 500 mg tablet RxNorm: 020586 Tablet(s) TAKE 1 TABLET BY MOUTH DAILY 10/15/2018 10/09/2019 Ac tive lisinopril 10 mg tablet RxNorm: 462229 TAKE 1 TABLET BY MOUTH TWO TIMES DAILY 10/15/2018 10/09/2019 Ac tive - First Attempt Ref: [id number] testosterone cypiona te 200 mg/mL intramuscular oil RxNorm: 5085941 Milliliter(s) IM 10/14/2018 10/14/2018 In active Xanax 0.5 mg tablet RxNorm: 301700 1 Tablet(s) PO TID 10/03/2018 11/30/2018 Inactive testosterone cypiona te 200 mg/mL intramuscular oil RxNorm: 2959173 1/2 Milliliter(s) IM weekly 10/03/2018 11/03/2018 Inactive testosterone cypiona te 200 mg/mL intramuscular oil RxNorm: 0186347 Milliliter(s) IM 10/03/2018 10/03/2018 In active testosterone cypiona te 200 mg/mL intramuscular oil RxNorm: 1901424 Milliliter(s) IM 09/23/2018 09/23/2018 In active hydrocodone 5 mg-linh taminophen 325 mg tablet RxNorm: 705554 1 Tablet(s) PO Q6-8H as needed 09/22/2018 10/16/2018 Inactive testosterone cypiona te 200 mg/mL intramuscular oil RxNorm: 5318498 1/2 Milliliter(s) IM 09/02/2018 09/02/2018 Inactive testosterone enantha te 200 mg/mL intramuscular oil RxNorm: 700836 Milliliter(s) IM 08/21/2018 08/21/2018 In active hydrocodone 5 mg-linh taminophen 325 mg tablet RxNorm: 806799 1 Tablet(s) PO Q6-8H as needed 08/21/2018 09/14/2018 Inactive testosterone cypiona te 200 mg/mL intramuscular oil RxNorm: 6813783 Milliliter(s) IM 08/08/2018 08/08/2018 In active testosterone cypiona te 200 mg/mL intramuscular oil RxNorm: 5789653 1/2 Milliliter(s) IM 07/28/2018 07/28/2018 Inactive hydrocodone 5 mg-linh taminophen 325 mg tablet RxNorm: 453356 1 Tablet(s) PO Q6-8H as needed 07/21/2018 08/14/2018 Inactive testosterone cypiona te 200 mg/mL intramuscular oil RxNorm: 721583 Milliliter(s) IM 07/16/2018 07/16/2018 In active testosterone cypiona te 200 mg/mL intramuscular oil RxNorm: 870271 Milliliter(s) IM 07/02/2018 07/02/2018 In active Xanax 0.5 mg tablet RxNorm: 769399 1 Tablet(s) PO TID 06/27/2018 08/24/2018 Inactive testosterone cypiona te 200 mg/mL intramuscular oil RxNorm: 245309 Milliliter(s) IM 06/24/2018 06/24/2018 In active hydrocodone 5 mg-linh taminophen 325 mg tablet RxNorm: 561307 1 Tablet(s) PO Q6-8H as needed 06/23/2018 07/17/2018 Inactive testosterone cypiona te 200 mg/mL intramuscular oil RxNorm: 935187 Milliliter(s) IM 06/13/2018 06/13/2018 In active testosterone cypiona te 200 mg/mL intramuscular oil RxNorm: 335523 Milliliter(s) IM 06/05/2018 06/05/2018 In active testosterone cypiona te 200 mg/mL intramuscular oil RxNorm: 8548423 1/2 Milliliter(s) IM weekly 05/30/2018 09/26/2018 Inactive testosterone cypiona te 200 mg/mL intramuscular oil RxNorm: 353699 Milliliter(s) IM 05/30/2018 05/30/2018 In active testosterone cypiona te 200 mg/mL intramuscular oil RxNorm: 389699 Milliliter(s) IM 05/22/2018 05/22/2018 In active hydrocodone 5 mg-linh taminophen 325 mg tablet RxNorm: 302238 1 Tablet(s) PO Q6-8H as needed 05/20/2018 06/13/2018 Inactive testosterone cypiona te 200 mg/mL intramuscular oil RxNorm: 981601 1/2 Milliliter(s) IM 05/12/2018 05/12/2018 Inactive testosterone cypiona te 200 mg/mL intramuscular oil RxNorm: 902062 Milliliter(s) IM 05/02/2018 05/02/2018 In active testosterone cypiona te 200 mg/mL intramuscular oil RxNorm: 758140 1/2 Milliliter(s) IM weekly 04/24/2018 05/29/2018 Inactive testosterone cypiona te 200 mg/mL intramuscular oil RxNorm: 512215 0.5 Milliliter(s) IM 04/24/2018 04/24/2018 Inactive hydrocodone 5 mg-linh taminophen 325 mg tablet RxNorm: 544019 1 Tablet(s) PO Q6-8H as needed 04/22/2018 05/16/2018 Inactive testosterone cypiona te 200 mg/mL intramuscular oil RxNorm: 232561 1/2 Milliliter(s) IM 04/17/2018 04/17/2018 Inactive testosterone cypiona te 200 mg/mL intramuscular oil RxNorm: 755389 1/2 Milliliter(s) IM weekly 04/16/2018 04/23/2018 Inactive Jardiance 10 mg tablet RxNorm: 6427499 1 Tablet(s) PO daily 04/04/2018 12/29/2018 Inactive testosterone cypiona te 200 mg/mL intramuscular oil RxNorm: 715864 1 Milliliter(s) IM monthly 04/04/2018 04/15/2018 Inactive Protonix 40 mg table t,delayed release RxNorm: 109699 1 Tablet(s) PO daily TAKE 1 TABLET BY MOUTH DAILY 04/04/2018 02/01/2019 Inactive - Ref: [id number] hydrocodone 5 mg-linh taminophen 325 mg tablet RxNorm: 647581 1 Tablet(s) PO Q6-8H as needed 03/19/2018 04/12/2018 Inactive Flomax 0.4 mg capsule RxNorm: 082370 1 Capsule(s) PO daily 03/10/2018 03/04/2019 Inactive Urecholine 25 mg tablet RxNorm: 696693 1 Tablet(s) PO BID 03/10/2018 07/07/2018 Inactive ketorolac 60 mg/2 mL intramuscular solution RxNorm: 8990862 Milliliter(s) IM 03/07/2018 03/07/2018 In active metformin 500 mg tablet RxNorm: 557746 Tablet(s) TAKE 1 TABLET BY MOUTH DAILY 02/20/2018 02/13/2019 In active 1 q am and 1/2 tab q pm hydrocodone 5 mg-linh taminophen 325 mg tablet RxNorm: 170422 1 Tablet(s) PO Q6-8H as needed 02/20/2018 03/16/2018 Inactive Kenalog 40 mg/mL bartolome pension for injection RxNorm: 3262570 1.5 Milliliter(s) In j 01/30/2018 01/30/2018 In active hydrocodone 5 mg-linh taminophen 325 mg tablet RxNorm: 257162 1 Tablet(s) PO Q6-8H as needed 01/23/2018 02/16/2018 Inactive Urecholine 25 mg tablet RxNorm: 031698 1 Tablet(s) PO BID 01/22/2018 03/09/2018 Inactive Flomax 0.4 mg capsule RxNorm: 518966 1 Capsule(s) PO daily 01/22/2018 03/09/2018 Inactive Flomax 0.4 mg capsule RxNorm: 878859 1 Capsule(s) PO daily 01/22/2018 01/21/2018 Inactive Urecholine 25 mg tablet RxNorm: 866047 1 Tablet(s) PO BID 01/22/2018 01/21/2018 Inactive testosterone cypiona te 200 mg/mL intramuscular oil RxNorm: 166681 Milliliter(s) IM 01/17/2018 01/17/2018 In active testosterone cypiona te 200 mg/mL intramuscular oil RxNorm: 987179 1 Milliliter(s) IM monthly 01/17/2018 04/03/2018 Inactive doxycycline hyclate 100 mg tablet RxNorm: 002824 1 Tablet(s) PO BID 01/14/2018 01/23/2018 Inactive lisinopril 10 mg tablet RxNorm: 622800 TAKE 1 TABLET BY MOUTH TWO TIMES DAILY 01/14/2018 10/14/2018 In active - First Attempt Ref: [id number] nystatin 100,000 uni t/mL oral suspension RxNorm: 258826 4 Milliliter(s) PO QI D Swish and swallow 01/08/2018 01/07/2018 Inactive nystatin 100,000 uni t/mL oral suspension RxNorm: 197045 4 Milliliter(s) PO QI D Swish and swallow 01/08/2018 01/12/2018 Inactive Xanax 0.5 mg tablet RxNorm: 306980 1 Tablet(s) PO TID 01/08/2018 12/23/2018 Inactive simvastatin 40 mg ta blet RxNorm: 349648 TAKE 1 TABLET BY MOUT H DAILY AT BEDTIME 12/30/2017 12/24/2018 In active - First Attempt Ref: [id number] metformin 500 mg tablet RxNorm: 982189 TAKE 1 TABLET BY MOUTH DAILY 12/30/2017 02/19/2018 Inactive - First Attempt Ref: [id number] hydrocodone 5 mg-linh taminophen 325 mg tablet RxNorm: 383339 1 Tablet(s) PO Q6-8H as needed 12/25/2017 01/18/2018 Inactive Protonix 40 mg table t,delayed release RxNorm: 738275 Tablet(s) TAKE 1 TABL ET BY MOUTH DAILY 11/20/2017 04/03/2018 Inactive - Ref: [id number] Linzess 72 mcg capsule RxNorm: 8162743 1 Capsule(s) PO daily 11/19/2017 No Stop Date Active hydrocodone 5 mg-linh taminophen 325 mg tablet RxNorm: 958196 1 Tablet(s) PO Q6-8H as needed 11/19/2017 12/13/2017 Inactive hydrocodone 5 mg-linh taminophen 325 mg tablet RxNorm: 031592 1 Tablet(s) PO Q6-8H as needed 10/28/2017 11/18/2017 Inactive Xanax 0.5 mg tablet RxNorm: 509522 1 Tablet(s) PO TID 10/25/2017 12/22/2017 Inactive Xanax 0.5 mg tablet RxNorm: 563804 TAKE ONE TABLET BY MOUTH THREE TIMES A D AY 10/24/2017 12/01/2018 In active hydrocodone 5 mg-linh taminophen 325 mg tablet RxNorm: 336698 1 Tablet(s) PO Q6-8H as needed 09/30/2017 10/24/2017 Inactive Protonix 40 mg table t,delayed release RxNorm: 043346 TAKE 1 TABLET BY MOUT H DAILY 09/16/2017 11/19/2017 In active - Ref: [id number] Yovana Perkins 300 unit/mL (1.5 mL) subcutaneous insulin pen RxNorm: 7260143 35 Unit(s) SQ QHS 08/30/2017 03/02/2019 Inactive dosage increase hydrocodone 5 mg-linh taminophen 325 mg tablet RxNorm: 095158 1 Tablet(s) PO Q6-8H as needed 08/28/2017 09/29/2017 Inactive hydrocodone 5 mg-linh taminophen 325 mg tablet RxNorm: 024669 1 Tablet(s) PO Q6-8H as needed 07/23/2017 08/24/2017 Inactive lisinopril 10 mg tablet RxNorm: 753035 1 Tablet(s) PO BID Take 1 tablet by mout h daily 07/23/2017 01/13/2018 Inactive hydrocodone 5 mg-linh taminophen 325 mg tablet RxNorm: 985217 1 Tablet(s) PO Q6-8H as needed 06/27/2017 07/22/2017 Inactive Xanax 0.5 mg tablet RxNorm: 322124 1 Tablet(s) PO TID 06/18/2017 10/25/2017 Inactive hydrocodone 5 mg-linh taminophen 325 mg tablet RxNorm: 386160 1 Tablet(s) PO Q6-8H as needed 05/27/2017 06/26/2017 Inactive Levaquin 500 mg tablet RxNorm: 351692 1 Tablet(s) PO daily 05/24/2017 05/23/2017 Inactive Levaquin 500 mg tablet RxNorm: 969054 1 Tablet(s) PO daily 05/24/2017 05/30/2017 Inactive Protonix 40 mg table t,delayed release RxNorm: 190280 Take 1 tablet by mout h daily 04/29/2017 09/15/2017 In active - Ref: [id number] hydrocodone 5 mg-linh taminophen 325 mg tablet RxNorm: 600945 1 Tablet(s) PO Q6-8H as needed 04/25/2017 05/26/2017 Inactive metformin 500 mg tablet RxNorm: 119715 Take 1 tablet by mouth daily 04/08/2017 12/29/2017 Inactive - First Attempt Ref: [id number] hydrocodone 5 mg-linh taminophen 325 mg tablet RxNorm: 975601 1 Tablet(s) PO Q6-8H as needed 03/27/2017 04/24/2017 Inactive hydrocodone 5 mg-linh taminophen 325 mg tablet RxNorm: 560755 1 Tablet(s) PO Q6-8H as needed 02/25/2017 03/26/2017 Inactive Protonix 40 mg table t,delayed release RxNorm: 608264 Tablet(s) Take 1 tabl et by mouth BID 02/25/2017 04/28/2017 Inactive Protonix 40 mg table t,delayed release RxNorm: 136569 Tablet(s) Take 1 tabl et by mouth BID 02/19/2017 02/18/2017 Inactive Protonix 40 mg table t,delayed release RxNorm: 500714 Tablet(s) Take 1 tabl et by mouth BID 02/19/2017 02/24/2017 Inactive lisinopril 10 mg tablet RxNorm: 522761 Take 1 tablet by mouth daily 01/29/2017 07/22/2017 Inactive - First Attempt Ref: [id number] hydrocodone 5 mg-linh taminophen 325 mg tablet RxNorm: 431885 1 Tablet(s) PO Q6-8H as needed 01/25/2017 02/24/2017 Inactive simvastatin 40 mg ta blet RxNorm: 399187 Tablet(s) Take 1 tabl et by mouth daily at bedtime 01/03/2017 12/28/2017 Inactive lisinopril 10 mg tablet RxNorm: 287435 Tablet(s) Take 1 tablet by mouth daily 01/03/2017 01/28/2017 In active Protonix 40 mg table t,delayed release RxNorm: 200031 Tablet(s) Take 1 tabl et by mouth daily 12/28/2016 02/18/2017 Inactive hydrocodone 5 mg-linh taminophen 325 mg tablet RxNorm: 046744 1 Tablet(s) PO Q6-8H as needed 12/26/2016 01/24/2017 Inactive Xanax 0.5 mg tablet RxNorm: 866642 1 Tablet(s) PO TID 12/12/2016 03/11/2017 Inactive simvastatin 40 mg ta blet RxNorm: 023230 Tablet(s) Take 1 tabl et by mouth daily at bedtime 11/30/2016 01/02/2017 Inactive simvastatin 40 mg ta blet RxNorm: 541881 Take 1 tablet by mout h daily at bedtime 11/29/2016 11/29/2016 In active - First Attempt Ref: [id number] Protonix 40 mg table t,delayed release RxNorm: 974592 Take 1 tablet by mout h daily 11/27/2016 12/27/2016 In active - First Attempt Ref: [id number] hydrocodone 5 mg-linh taminophen 325 mg tablet RxNorm: 230077 1 Tablet(s) PO Q6-8H as needed 11/26/2016 12/25/2016 Inactive hydrocodone 5 mg-linh taminophen 325 mg tablet RxNorm: 600053 1 Tablet(s) PO Q8 as needed 10/24/2016 11/25/2016 Inactive Xanax 0.5 mg tablet RxNorm: 629004 1 Tablet(s) PO TID 10/09/2016 12/25/2016 Inactive hydrocodone 5 mg-linh taminophen 325 mg tablet RxNorm: 042013 1 Tablet(s) PO Q8 as needed 09/27/2016 10/23/2016 Inactive lisinopril 10 mg tablet RxNorm: 543985 Take 1 tablet by mouth daily 09/25/2016 01/02/2017 Inactive - First Attempt Ref: [id number] Vitamin D2 50,000 un it capsule RxNorm: 936845 1 Capsule(s) PO QW 09/06/2016 12/01/2018 Inactive hydrocodone 5 mg-linh taminophen 325 mg tablet RxNorm: 413183 1 Tablet(s) PO Q8 as needed 08/28/2016 09/26/2016 Inactive Toujeo SoloStar 300 unit/mL (1.5 mL) subcutaneous insulin pen RxNorm: 2830298 25 Unit(s) SQ QHS 08/23/2016 08/29/2017 Inactive dosage increase hydrocodone 5 mg-linh taminophen 325 mg tablet RxNorm: 979989 1 Tablet(s) PO Q8 as needed 07/26/2016 08/27/2016 Inactive Protonix 40 mg table t,delayed release RxNorm: 584846 Take 1 tablet by mout h daily 07/24/2016 11/26/2016 In active - First Attempt Ref: [id number] hydrocodone 5 mg-linh taminophen 325 mg tablet RxNorm: 536730 1 Tablet(s) PO Q8 as needed 06/19/2016 07/21/2016 Inactive Toujeo SoloStar 300 unit/mL (1.5 mL) subcutaneous insulin pen RxNorm: 1932751 32 Unit(s) SQ QHS 05/30/2016 08/22/2016 Inactive dosage increase hydrocodone 5 mg-linh taminophen 325 mg tablet RxNorm: 633330 1 Tablet(s) PO Q8 as needed 05/22/2016 06/18/2016 Inactive hydrocodone 5 mg-linh taminophen 325 mg tablet RxNorm: 844328 1 Tablet(s) PO Q8 as needed 04/18/2016 05/17/2016 Inactive Protonix 40 mg table t,delayed release RxNorm: 127551 Take 1 tablet by mout h daily 04/05/2016 07/03/2016 In active - Ref: [id number] metformin 500 mg tablet RxNorm: 548059 Take 1 tablet by mouth daily 04/04/2016 07/02/2016 Inactive - Ref: [id number] Xanax 0.5 mg tablet RxNorm: 196952 1 Tablet(s) PO TID 03/30/2016 09/25/2016 Inactive Xanax 0.5 mg tablet RxNorm: 701660 1 Tablet(s) PO TID 03/23/2016 12/25/2016 Inactive hydrocodone 5 mg-linh taminophen 325 mg tablet RxNorm: 319542 1 Tablet(s) PO Q8 as needed 03/06/2016 04/04/2016 Inactive Cipro 500 mg tablet RxNorm: 431173 1 Tablet(s) PO BID 02/24/2016 03/04/2016 Inactive Miralax 17 gram oral powder packet RxNorm: 541440 1 packet PO every oth er day 01/27/2016 No Stop Date Active hydrocodone 5 mg-linh taminophen 325 mg tablet RxNorm: 126541 1 Tablet(s) PO Q8 as needed 01/27/2016 02/25/2016 Inactive lisinopril 10 mg tablet RxNorm: 391324 1 Tablet(s) PO daily 01/12/2016 09/24/2016 Inactive simvastatin 40 mg ta blet RxNorm: 866180 1 Tablet(s) PO QHS 01/12/2016 11/28/2016 Inactive simvastatin 40 mg ta blet RxNorm: 896437 1 Tablet(s) PO QHS 01/11/2016 01/11/2016 Inactive lisinopril 10 mg tablet RxNorm: 160704 1 Tablet(s) PO daily 01/06/2016 01/11/2016 Inactive simvastatin 40 mg ta blet RxNorm: 252420 1 Tablet(s) PO daily 12/28/2015 01/10/2016 Inactive hydrocodone 5 mg-linh taminophen 325 mg tablet RxNorm: 424251 1 Tablet(s) PO Q8 as needed 12/27/2015 01/26/2016 Inactive Xanax 0.5 mg tablet RxNorm: 543970 1 Tablet(s) PO TID 11/30/2015 03/29/2016 Inactive Toujeo SoloStar 300 unit/mL (1.5 mL) subcutaneous insulin pen RxNorm: 3734828 30 Unit(s) SQ QHS 11/25/2015 05/29/2016 Inactive dosage increase meclizine 25 mg tablet RxNorm: 177326 1 Tablet(s) PO Q6 PRN TAKE ONE TABLET BY MOUTH EVERY 6 HOURS NEEDED 11/25/2015 02/22/2016 Inactive omeprazole 20 mg cap jacquelyn,delayed release RxNorm: 225743 1 Capsule(s) PO daily 10/06/2015 01/26/2016 In active Toujeo SoloStar 300 unit/mL (1.5 mL) subcutaneous insulin pen RxNorm: 9413065 35 Unit(s) SQ QHS 08/02/2015 11/24/2015 Inactive dosage increase Vitamin D2 50,000 un it capsule RxNorm: 928647 1 Capsule(s) PO QW 08/02/2015 09/05/2016 Inactive hydrocodone 5 mg-linh taminophen 325 mg tablet RxNorm: 784766 1 Tablet(s) PO Q8 as needed 07/11/2015 12/26/2015 Inactive Xanax 0.5 mg tablet RxNorm: 756666 1 Tablet(s) PO TID 06/30/2015 06/29/2015 Inactive Xanax 0.5 mg tablet RxNorm: 958152 1 Tablet(s) PO TID 06/30/2015 12/25/2015 Inactive hydrocodone 5 mg-linh taminophen 325 mg tablet RxNorm: 367987 1 Tablet(s) PO Q8 as needed 05/06/2015 07/10/2015 Inactive Symbicort 160 mcg-4. 5 mcg/actuation HFA aerosol inhaler RxNorm: 8410976 INH 04/25/2015 No Stop Date Active Levemir FlexTouch 10 0 unit/mL (3 mL) subcutaneous insulin pen RxNorm: 802111 30 Unit(s) SQ QHS 04/25/2015 11/24/2015 Inactive prednisone 20 mg tablet RxNorm: 573935 1 Tablet(s) PO BID 04/25/2015 04/29/2015 Inactive metformin 500 mg tablet RxNorm: 540392 1 Tablet(s) PO daily 04/25/2015 04/03/2016 Inactive amoxicillin 500 mg c apsule RxNorm: 658243 1 Capsule(s) PO TID 04/14/2015 04/13/2015 Inactive amoxicillin 500 mg c apsule RxNorm: 621678 1 Capsule(s) PO TID a nd recommend probiotic tid (otc) 04/14/2015 04/20/2015 Inactive Kenalog 40 mg/mL bartolome pension for injection RxNorm: 6008109 Milliliter(s) Inj 04/12/2015 04/12/2015 In active hydrocodone 5 mg-linh taminophen 325 mg tablet RxNorm: 907063 1 Tablet(s) PO Q8 as needed 03/30/2015 05/05/2015 Inactive Lantus 100 unit/mL s ubcutaneous solution RxNorm: 990910 25 Unit(s) SQ QPM 03/24/2015 04/25/2015 In active meclizine 25 mg tablet RxNorm: 048851 Tablet(s) TAKE ONE TABLET BY MOUTH EVERY 6 HOURS NEEDED 03/08/2015 04/06/2015 Inactive meclizine 25 mg tablet RxNorm: 678235 TAKE ONE TABLET BY MOUTH EVERY 6 HOURS A S NEEDED 02/25/2015 03/03/2015 Inactive Lantus 100 unit/mL s ubcutaneous solution RxNorm: 933545 20 Unit(s) SQ QPM 02/23/2015 03/23/2015 In active Lantus 100 unit/mL s ubcutaneous solution RxNorm: 049457 25 Unit(s) SQ QPM 02/23/2015 02/22/2015 In active hydrocodone 5 mg-linh taminophen 325 mg tablet RxNorm: 520045 1 Tablet(s) PO Q8 as needed 02/17/2015 03/29/2015 Inactive Xanax 0.5 mg tablet RxNorm: 164015 1 Tablet(s) PO TID 02/03/2015 06/29/2015 Inactive Lantus 100 unit/mL s ubcutaneous solution RxNorm: 304991 20 Unit(s) SQ QPM 12/29/2014 02/22/2015 In active Phenergan 12.5 mg re ctal suppository RxNorm: 200113 1 Suppository RTL Q6 PRN 12/23/2014 No Stop Date Active nausea Kenalog 40 mg/mL bartolome pension for injection RxNorm: 3704786 Milliliter(s) Inj 12/23/2014 12/23/2014 In active prednisone 20 mg tablet RxNorm: 403870 2 Tablet(s) PO daily 12/13/2014 12/17/2014 Inactive prednisone 20 mg tablet RxNorm: 714854 2 Tablet(s) PO daily 12/13/2014 12/12/2014 Inactive meclizine 25 mg tablet RxNorm: 782934 1 Tablet(s) PO Q6 PRN 12/09/2014 02/24/2015 Inactive hydrocodone 5 mg-linh taminophen 325 mg tablet RxNorm: 790022 1 Tablet(s) PO Q8 as needed 12/09/2014 02/16/2015 Inactive Vitamin B-12 1,000 m cg/mL oral drops RxNorm: 9881509 1 Milliliter(s) PO d aily No Start Date Active Alphagan P 0.1 % eye drops RxNorm: 597257 1 Drop(s) OPH BID No Start Date Active aspirin 325 mg table t,delayed release RxNorm: 935301 1 Tablet(s) PO daily No Start Date Active Tricor 145 mg tablet RxNorm: 230835 1 Tablet(s) PO daily No Start Date Active vitamin [id number] B1 oral liquid RxNorm: 1,000 Microgram(s) PO daily No Start Date Active atenolol 50 mg tablet RxNorm: 279499 1 Tablet(s) PO daily No Start Date Active Protonix 40 mg table t,delayed release RxNorm: 966583 1 Tablet(s) PO daily No Start Date 04/04/2016 Inactive glipizide 10 mg tablet RxNorm: 435311 1 Tablet(s) PO BID No Start Date 03/22/2015 Inactive Lantus 100 unit/mL s ubcutaneous solution RxNorm: 379769 15 Unit(s) SQ QPM No Start Date 12/28/2014 Inactive lisinopril 10 mg tablet RxNorm: 154496 1 Tablet(s) PO daily No Start Date 01/05/2016 Inactive Vitamin D2 50,000 un it capsule RxNorm: 225956 1 Capsule(s) PO QW No Start Date 08/01/2015 Inactive Toujeo SoloStar 300 unit/mL (1.5 mL) subcutaneous insulin pen RxNorm: 1656604 30 Unit(s) SQ QHS No Start Date 08/01/2015 Inactive simvastatin 40 mg ta blet RxNorm: 861665 1 Tablet(s) PO daily No Start Date 12/27/2015 Inactive testosterone cypiona te 200 mg/mL intramuscular oil RxNorm: 275701 1 Milliliter(s) IM monthly No Start Date 01/16/2018 Inactive hydrocodone 5 mg-linh taminophen 325 mg tablet RxNorm: 532370 1 Tablet(s) PO Q8 as needed No Start Date 12/08/2014 Inactive metformin 500 mg tablet RxNorm: 718879 1 Tablet(s) PO daily No Start Date 04/24/2015 Inactive omeprazole 20 mg cap jacquelyn,delayed release RxNorm: 317855 1 Capsule(s) PO daily No Start Date 10/05/2015 Inactive Flomax 0.4 mg capsule RxNorm: 825471 1 Capsule(s) PO daily No Start Date 03/23/2015 Inactive Medication Administered Medication Codes Instruc tions Start Date Status testosterone cypionate 200 mg/mL intramuscular oil RxNorm: 3033167 Milliliter 03/31/2019 No longer Active testosterone cypionate 200 mg/mL intramuscular oil RxNorm: 3234771 [facility]iter 03/17/2019 No longer Active testosterone cypionate 200 mg/mL intramuscular oil RxNorm: 4496236 /2Milliliter 03/04/2019 No longer Active testosterone cypionate 200 mg/mL intramuscular oil RxNorm: 4906728 [facility]iliter 02/16/2019 No longer Active testosterone cypionate 200 mg/mL intramuscular oil RxNorm: 6758065 [facility]iliter 01/30/2019 No longer Active testosterone cypionate 200 mg/mL intramuscular oil RxNorm: 9665138 [facility]iliter 01/16/2019 No longer Active testosterone cypionate 200 mg/mL intramuscular oil RxNorm: 8244018 Milliliter 01/01/2019 No longer Active testosterone cypionate 200 mg/mL intramuscular oil RxNorm: 0370341 [facility]iter 12/17/2018 No longer Active testosterone cypionate 200 mg/mL intramuscular oil RxNorm: 0058082 [facility]iliter 12/02/2018 No longer Active testosterone cypionate 200 mg/mL intramuscular oil RxNorm: 2801143 [facility]iliter 11/18/2018 No longer Active testosterone cypionate 200 mg/mL intramuscular oil RxNorm: 8280912 [facility]iliter 11/04/2018 No longer Active testosterone cypionate 200 mg/mL intramuscular oil RxNorm: 9206369 Milliliter 10/14/2018 No longer Active testosterone cypionate 200 mg/mL intramuscular oil RxNorm: 8856002 Milliliter 10/03/2018 No longer Active testosterone cypionate 200 mg/mL intramuscular oil RxNorm: 9844870 [facility]iter 09/23/2018 No longer Active testosterone cypionate 200 mg/mL intramuscular oil RxNorm: 0461931 /2Milliliter 09/02/2018 No longer Active testosterone enanthate 200 mg/mL intramuscular oil RxNorm: 314220 [facility]iliter 08/21/2018 No longer Active testosterone cypionate 200 mg/mL intramuscular oil RxNorm: 4459498 [facility]iliter 08/08/2018 No longer Active testosterone cypionate 200 mg/mL intramuscular oil RxNorm: 0459561 1/2Milliliter 07/28/2018 No longer Active testosterone cypionate 200 mg/mL intramuscular oil RxNorm: 665011 Milliliter 07/16/2018 No longer Active testosterone cypionate 200 mg/mL intramuscular oil RxNorm: 996577 Milliliter 07/02/2018 No longer Active testosterone cypionate 200 mg/mL intramuscular oil RxNorm: 142253 [facility]iliter 06/24/2018 No longer Active testosterone cypionate 200 mg/mL intramuscular oil RxNorm: 809512 Milliliter 06/13/2018 No longer Active testosterone cypionate 200 mg/mL intramuscular oil RxNorm: 438048 [facility]iliter 06/05/2018 No longer Active testosterone cypionate 200 mg/mL intramuscular oil RxNorm: 525649 Milliliter 05/30/2018 No longer Active testosterone cypionate 200 mg/mL intramuscular oil RxNorm: 450824 [facility]iliter 05/22/2018 No longer Active testosterone cypionate 200 mg/mL intramuscular oil RxNorm: 398963 /2Milliliter 05/12/2018 No longer Active testosterone cypionate 200 mg/mL intramuscular oil RxNorm: 107790 [facility]iliter 05/02/2018 No longer Active testosterone cypionate 200 mg/mL intramuscular oil RxNorm: 926977 0.5Milliliter 04/24/2018 No longer Active testosterone cypionate 200 mg/mL intramuscular oil RxNorm: 856523 1/2Milliliter 04/17/2018 No longer Active ketorolac 60 mg/2 mL intramuscular solution RxNorm: 0577761 [facility]iliter 03/07/2018 No longer Active Kenalog 40 mg/mL suspension for injection RxNorm: 1214347 1.5Milliliter 01/30/2018 No longer Active testosterone cypionate 200 mg/mL intramuscular oil RxNorm: 916561 Milliliter 01/17/2018 No longer Active Kenalog 40 mg/mL suspension for injection RxNorm: 2007037 [facility]iliter 04/12/2015 No longer Active Kenalog 40 mg/mL suspension for injection RxNorm: 7914988 Milliliter 12/23/2014 No longer Active Immunizations Vaccine Codes Date Status Influenza CVX: 141 06/06 completed Influenza CVX: 141 04/25 completed Pneumococcal (Adult) CVX: 133 04/25/2017 completed Influenza CVX: 141 05/22 completed Assessments Condition Codes Effectiv e Dates Testicular dysfunction, unspecified ICD-10: E29.9 ICD-9: 257.9 03/31/2019 Anemia, unspecified ICD-10: D64.9 ICD-9: 285.9 03/05/2019 Mixed hyperlipidemia ICD-10: E78.2 ICD-9: 272.2 03/03/2019 Type 2 diabetes mellitus with hyperglycemia ICD-10: E11.65 ICD-9: 250.02 03/03/2019 Chronic obstructive pulmonary disease, unspecified ICD-10: J44.9 ICD-9: 496 03/03/2019 Abnormal weight loss ICD-10: R63.4 ICD-9: 783.21 03/03/2019 Other insomnia ICD-10: G47.09 ICD-9: 327.09 [...] enc ounter ICD-10: S80.862A ICD-9: 916.4 01/14/2018 Other fatigue ICD-10: R53.83 ICD-9: 780.79 01/13/2018 Type 2 diabetes mellitus with hyperglycemia ICD-10: E11.65 ICD-9: 250.00 01/13/2018 Drug induced constipation ICD-10: K5 9.03 ICD-9: 564.09 11/19/2017 Abdominal distension (gaseous) ICD-1 0: R14.0 ICD-9: 787.3 11/19/2017 Nicotine dependence, unspecified, uncomplicated ICD-10: F17.200 [...] 401.9 05/06/2015 Muscle ache ICD-9: 729.1 04/25/2015 ACUTE URI ICD-9: 465.9 0 04/12/2015 ACTINIC KERATOSIS ICD-9: 702.0 04/12/2015 Skin texture changes ICD-9: 782.8 03/07/2015 [...] Code Item Item Code Result Date B12 Dun783 B12 432.00 pg/ml 03/05/2019 %Hba1C Tqz594 % HbA1c 73820-0 7.9 % 03/04/2019 %Hba1C Dgh390 Gluc Ave 180 mg/dL 03/04/2019 Testosterone Zku064 Testo 142.2 ng/dL 03/04/2019 Cbc With Differential [...] 33.6 pg 03/04/2019 Cbc With Differential Ord2 Mcdonald% 6.9 % 03/04/2019 Cbc With Differential Ord2 [...] 2.56 K/ul 03/04/2019 Cbc With Differential Ord2 Mcdonald ABS# 0.5 K/ul 03/04/2019 Cbc With Differential Ord2 Eos ABS# 0.4 K/ul 03/04/2019 Cbc With Differential Ord2 Baso ABS# 0.0 K/ul 03/04/2019 Lipid Ord30 CHOL 114 mg/dL 03/04/2019 Lipid Ord30 HDL 25.0 mg/dl 03/04/2019 Lipid Ord30 TRIG 119 mg/dL 03/04/2019 Lipid Ord30 LDL 65 mg/dL 03/04/2019 Lipid Ord30 C/HDL 4.6 Ratio 03/04/2019 Tsh Ord6 TSH (3rd IS) 3.85 uIU/mL 03/04/2019 Comp Metabolic Yhk836 NA 142 mEq/L 03/04/2019 Comp Metabolic Mak915 K 4.5 mEq/L 03/04/2019 Comp Metabolic Djw206 CL 105 mEq/L 03/04/2019 Comp Metabolic Aba538 CO2 30.0 mEq/L 03/04/2019 Comp Metabolic Cbv229 AN ION GAP 12 03/04/2019 Comp Metabolic Gyf086 GL UCOSE 92 mg/dL 03/04/2019 Comp Metabolic Bom611 Cr eat 1.0 mg/dL 03/04/2019 Comp Metabolic Dzs201 eG FR 80 ml/min/1.73m2 03/04 Comp Metabolic Woy202 BUN 20 mg/dL 03/04/2019 Comp Metabolic Npe934 B/ C Ratio 20.8 Ratio 03/04/2019 Comp Metabolic Qzr014 CA LCIUM 9.0 mg/dL 03/04/2019 Comp Metabolic Rww420 AL K PHOS 67 U/L 03/04/2019 Comp Metabolic Wcr429 T(SGOT) 17 U/L 03/04/2019 Comp Metabolic Qhg068 AL T(SGPT) 17 U/L 03/04/2019 Comp Metabolic Ino080 BI LI T 0.4 mg/dL 03/04/2019 Comp Metabolic Ido728 AL BUMIN 3.9 g/dL 03/04/2019 Comp Metabolic Oii891 TP RO 6.5 g/dL 03/04/2019 Comp Metabolic Qnh605 GL OB 2.6 g/dL 03/04/2019 Comp Metabolic Afm036 A/ G Ratio 1.5 Ratio 03/04/2019 Comp Metabolic Ftd087 Os mo 285 mOsmo 03/04/2019 Cbc With [...] 29.9 % 12/02/2018 Cbc With Differential Ord2 Mcdonald% 8.0 % 12/02/2018 Cbc With Differential Ord2 MCH 33.4 pg 12/02/2018 Cbc With Differential Ord2 MCHC 32.8 pg 12/02/2018 Cbc With Differential Ord2 Eos% 5.3 % 12/02/2018 Cbc With Differential Ord2 Baso% 0.1 % 12/02/2018 Cbc With Differential Ord2 PLT 209 K/ul 12/02/2018 Cbc With Differential Ord2 RDW 14.7 % 12/02/2018 Cbc With Differential Ord2 Neut ABS# 4.03 K/ul 12/02/2018 Cbc With Differential Ord2 Lymph ABS# 2.13 K/ul 12/02/2018 Cbc With Differential Ord2 Mcdonald ABS# 0.6 K/ul 12/02/2018 Cbc With Differential Ord2 Eos ABS# 0.4 K/ul 12/02/2018 Cbc With Differential Ord2 Baso ABS# 0.0 K/ul 12/02/2018 Testosterone Pji373 Testo 213.5 ng/dL 12/02/2018 A1C Frequency Hhc791 A1CF 09530-1 Last A1C performed at [facility] [place] lab on: 201812/02/2018 Testosterone Kgx306 Testo 669.0 ng/dL 09/08/2018 %Hba1C Vvb484 % HbA1c 45971-0 7.4 % 09/08/2018 %Hba1C Neu555 Gluc Ave 166 mg/dL 09/08/2018 Lipid Ord30 CHOL 114 mg/dL 09/08/2018 Lipid Ord30 HDL 28.0 mg/dl 09/08/2018 Lipid Ord30 TRIG 154 mg/dL 09/08/2018 Lipid Ord30 LDL 55 mg/dL 09/08/2018 Lipid Ord30 C/HDL 4.1 Ratio 09/08/2018 Comp Metabolic Mkc069 NA 137 mEq/L 09/08/2018 Comp Metabolic Dro508 K 4.3 mEq/L 09/08/2018 Comp Metabolic Hxd831 CL 100 mEq/L 09/08/2018 Comp Metabolic Kik562 CO2 27.0 mEq/L 09/08/2018 Comp Metabolic Rgk059 AN ION GAP 14 09/08/2018 Comp Metabolic Sgb148 GL UCOSE 85 mg/dL 09/08/2018 Comp Metabolic Drh933 Cr eat 1.1 mg/dL 09/08/2018 Comp Metabolic Vnk910 eG FR 70 ml/min/1.73m2 09/08 Comp Metabolic Sqp570 BUN 11 mg/dL 09/08/2018 Comp Metabolic Bro990 B/ C Ratio 10.3 Ratio 09/08/2018 Comp Metabolic Inq295 CA LCIUM 9.2 mg/dL 09/08/2018 Comp Metabolic Eod619 AL K PHOS 65 U/L 09/08/2018 Comp Metabolic Uln425 T(SGOT) 16 U/L 09/08/2018 Comp Metabolic Tkn887 AL T(SGPT) 14 U/L 09/08/2018 Comp Metabolic Ful275 BI LI T 0.6 mg/dL 09/08/2018 Comp Metabolic Hjt827 AL BUMIN 4.0 g/dL 09/08/2018 Comp Metabolic Chm152 TP RO 6.6 g/dL 09/08/2018 Comp Metabolic Xyo810 GL OB 2.6 g/dL 09/08/2018 Comp Metabolic Tep310 A/ G Ratio 1.6 Ratio 09/08/2018 Comp Metabolic Uem992 Os mo 272 mOsmo 09/08/2018 Vitamin D 25 Oh Scz3643 VITAMIN D, 25 HYDROXY 37.17 ng/mL 09/08/2018 Cbc With Differential Ord2 WBC 7.43 K/ul 09/08/2018 Cbc With Differential Ord2 RBC 3.78 M/ul 09/08/2018 Cbc With Differential Ord2 HGB 12.6 g/dl 09/08/2018 Cbc With Differential Ord2 HCT 37.0 % 09/08/2018 Cbc With Differential Ord2 Neut% 54.5 % 09/08/2018 Cbc With Differential Ord2 Lymph% 32.8 % 09/08/2018 Cbc With Differential Ord2 MCV 97.9 fl 09/08/2018 Cbc With Differential Ord2 MCH 33.3 pg 09/08/2018 Cbc With Differential Ord2 Mcdonald% 8.1 % 09/08/2018 Cbc With Differential Ord2 [...] 2.44 K/ul 09/08/2018 Cbc With Differential Ord2 Mcdonald ABS# 0.6 K/ul 09/08/2018 Cbc With Differential Ord2 Eos ABS# 0.3 K/ul 09/08/2018 Cbc With Differential Ord2 Baso ABS# 0.0 K/ul 09/08/2018 Tsh Ord6 TSH (3rd IS) 2.72 uIU/mL 09/08/2018 Comp Metabolic Sfu007 NA 139 mEq/L 04/01/2018 Comp Metabolic Wns923 K 4.2 mEq/L 04/01/2018 Comp Metabolic Dut148 CL 102 mEq/L 04/01/2018 Comp Metabolic Fte269 CO2 29.0 mEq/L 04/01/2018 Comp Metabolic Uzp108 AN ION GAP 12 04/01/2018 Comp Metabolic Trk016 GL UCOSE 87 mg/dL 04/01/2018 Comp Metabolic Ong270 Cr eat 1.1 mg/dL 04/01/2018 Comp Metabolic Tuj408 eG FR 70 ml/min/1.73m2 04/01 Comp Metabolic Axt612 BUN 21 mg/dL 04/01/2018 Comp Metabolic Csa095 B/ C Ratio 19.4 Ratio 04/01/2018 Comp Metabolic Reo710 CA LCIUM 9.1 mg/dL 04/01/2018 Comp Metabolic Jzt205 AL K PHOS 60 U/L 04/01/2018 Comp Metabolic Ogc830 T(SGOT) 15 U/L 04/01/2018 Comp Metabolic Mmg698 AL T(SGPT) 18 U/L 04/01/2018 Comp Metabolic Dko077 BI LI T 0.4 mg/dL 04/01/2018 Comp Metabolic Ivu127 AL BUMIN 4.0 g/dL 04/01/2018 Comp Metabolic Mba439 TP RO 6.5 g/dL 04/01/2018 Comp Metabolic Kvg747 GL OB 2.5 g/dL 04/01/2018 Comp Metabolic Syg105 A/ G Ratio 1.6 Ratio 04/01/2018 Comp Metabolic Qro975 Os mo 280 mOsmo 04/01/2018 Lipid Ord30 [...] 54.0 % 04/01/2018 Cbc With Differential Ord2 Lymph% 35.4 % 04/01/2018 Cbc With Differential Ord2 MCV 101.6 fl 04/01/2018 Cbc With Differential Ord2 MCH 34.3 pg 04/01/2018 Cbc With Differential Ord2 Mcdonald% 6.0 % 04/01/2018 Cbc With Differential Ord2 [...] 3.25 K/ul 04/01/2018 Cbc With Differential Ord2 Mcdonald ABS# 0.6 K/ul 04/01/2018 Cbc With Differential Ord2 Eos ABS# 0.4 K/ul 04/01/2018 Cbc With Differential Ord2 Baso ABS# 0.0 K/ul 04/01/2018 %Hba1C Tib270 % HbA1c 22480-3 8.0 % 04/01/2018 %Hba1C Uza147 Gluc Ave 183 mg/dL 04/01/2018 Testosterone Ccy990 Testo 111.3 ng/dL 04/01/2018 Testosterone Ldb391 Testo 135.4 ng/dL 01/14/2018 Cbc With Differential [...] 36.0 pg 01/14/2018 Cbc With Differential Ord2 Mcdonald% 6.8 % 01/14/2018 Cbc With Differential Ord2 MCHC 35.4 pg 01/14/2018 Cbc With Differential Ord2 Eos% 2.0 % 01/14/2018 Cbc With Differential Ord2 Baso% 0.1 % 01/14/2018 Cbc With Differential Ord2 PLT 263 K/ul 01/14/2018 Cbc With Differential Ord2 RDW 13.3 % 01/14/2018 Cbc With Differential Ord2 Neut ABS# 8.25 K/ul 01/14/2018 Cbc With Differential Ord2 Lymph ABS# 2.71 K/ul 01/14/2018 Cbc With Differential Ord2 Mcdonald ABS# 0.8 K/ul 01/14/2018 Cbc With Differential Ord2 Eos ABS# 0.2 K/ul 01/14/2018 Cbc With Differential Ord2 Baso ABS# 0.0 K/ul 01/14/2018 Comp Metabolic Tkh797 NA 134 mEq/L 11/20/2017 Comp Metabolic Vtv054 K 4.4 mEq/L 11/20/2017 Comp Metabolic Eay469 CL 99 mEq/L 11/20/2017 Comp Metabolic Zmj108 CO2 29.0 mEq/L 11/20/2017 Comp Metabolic Nhs762 AN ION GAP 10 11/20/2017 Comp Metabolic Tho428 GL UCOSE 218 mg/dL 11/20/2017 Comp Metabolic Vdp048 Cr eat 1.0 mg/dL 11/20/2017 Comp Metabolic Axx621 eG FR 78 ml/min/1.73m2 11/20 Comp Metabolic Zar866 BUN 13 mg/dL 11/20/2017 Comp Metabolic Xxm007 B/ C Ratio 13.3 Ratio 11/20/2017 Comp Metabolic Cgg246 CA LCIUM 9.0 mg/dL 11/20/2017 Comp Metabolic Ywa626 AL K PHOS 71 U/L 11/20/2017 Comp Metabolic Jnk805 T(SGOT) 18 U/L 11/20/2017 Comp Metabolic Mba684 AL T(SGPT) 17 U/L 11/20/2017 Comp Metabolic Ymg856 BI LI T 0.4 mg/dL 11/20/2017 Comp Metabolic Jno562 AL BUMIN 4.1 g/dL 11/20/2017 Comp Metabolic Dhh277 TP RO 6.5 g/dL 11/20/2017 Comp Metabolic Wez268 GL OB 2.4 g/dL 11/20/2017 Comp Metabolic Mbj811 A/ G Ratio 1.8 Ratio 11/20/2017 Comp Metabolic Zpx588 Os mo 275 mOsmo 11/20/2017 Cbc With Differential Ord2 WBC 8.14 K/ul 11/20/2017 Cbc With Differential Ord2 RBC 3.38 M/ul 11/20/2017 Cbc With Differential Ord2 HGB 11.9 g/dl 11/20/2017 Cbc With Differential Ord2 Neut% 48.2 % 11/20/2017 Cbc With Differential Ord2 HCT 34.9 % 11/20/2017 Cbc With Differential Ord2 Lymph% 41.0 % 11/20/2017 Cbc With Differential Ord2 MCV 103.3 fl 11/20/2017 Cbc With Differential Ord2 MCH 35.2 pg 11/20/2017 Cbc With Differential Ord2 Mcdonald% 7.2 % 11/20/2017 Cbc With Differential Ord2 MCHC 34.1 pg 11/20/2017 Cbc With Differential Ord2 Eos% 3.4 % 11/20/2017 Cbc With Differential Ord2 PLT 211 K/ul 11/20/2017 Cbc With Differential Ord2 Baso% 0.2 % 11/20/2017 Cbc With Differential Ord2 Neut ABS# 3.91 K/ul 11/20/2017 Cbc With Differential Ord2 RDW 13.7 % 11/20/2017 Cbc With Differential Ord2 Lymph ABS# 3.34 K/ul 11/20/2017 Cbc With Differential Ord2 Mcdonald ABS# 0.6 K/ul 11/20/2017 Cbc With Differential Ord2 Eos ABS# 0.3 K/ul 11/20/2017 Cbc With Differential Ord2 Baso ABS# 0.0 K/ul 11/20/2017 Vitamin D 25 Oh Hcl8535 VITAMIN D, 25 HYDROXY 43.72 ng/mL 11/20/2017 %Hba1C Wil242 % HbA1c 01885-4 7.4 % 11/20/2017 %Hba1C Yiu375 Gluc Ave 166 mg/dL 11/20/2017 %Hba1C Vzp609 % HbA1c 73821-2 7.2 % 08/20/2017 %Hba1C Jwj117 Gluc Ave 160 mg/dL 08/20/2017 Lipid Ord30 CHOL 114 mg/dL 08/20/2017 Lipid Ord30 HDL 28.0 mg/dl 08/20/2017 Lipid Ord30 TRIG 153 mg/dL 08/20/2017 Lipid Ord30 LDL 55 mg/dL 08/20/2017 Lipid Ord30 C/HDL 4.1 Ratio 08/20/2017 Cbc With Differential Ord2 WBC 8.32 K/ul 08/20/2017 Cbc With Differential Ord2 RBC 3.52 M/ul 08/20/2017 Cbc With Differential Ord2 HGB 12.2 g/dl 08/20/2017 Cbc With Differential Ord2 Neut% 59.7 % 08/20/2017 Cbc With Differential Ord2 HCT 36.2 % 08/20/2017 Cbc With Differential Ord2 MCV 102.8 fl 08/20/2017 Cbc With Differential Ord2 Lymph% 29.1 % 08/20/2017 Cbc With Differential Ord2 MCH 34.7 pg 08/20/2017 Cbc With Differential Ord2 Mcdonald% 7.6 % 08/20/2017 Cbc With Differential Ord2 [...] 2.42 K/ul 08/20/2017 Cbc With Differential Ord2 Mcdonald ABS# 0.6 K/ul 08/20/2017 Cbc With Differential Ord2 Eos ABS# 0.3 K/ul 08/20/2017 Cbc With Differential Ord2 Baso ABS# 0.0 K/ul 08/20/2017 Tsh Ord6 hTSH II 2.27 uIU/mL 08/20/2017 Comp Metabolic Rlj544 NA 138 mEq/L 08/20/2017 Comp Metabolic Biz514 K 4.3 mEq/L 08/20/2017 Comp Metabolic Jow710 CL 102 mEq/L 08/20/2017 Comp Metabolic Liw033 CO2 29.0 mEq/L 08/20/2017 Comp Metabolic Dqc497 AN ION GAP 11 08/20/2017 Comp Metabolic Rea995 GL UCOSE 89 mg/dL 08/20/2017 Comp Metabolic Cyr143 Cr eat 1.0 mg/dL 08/20/2017 Comp Metabolic Rky710 eG FR 80 ml/min/1.73m2 08/20 Comp Metabolic Uxk403 BUN 13 mg/dL 08/20/2017 Comp Metabolic Vip172 B/ C Ratio 13.5 Ratio 08/20/2017 Comp Metabolic Svy455 CA LCIUM 9.2 mg/dL 08/20/2017 Comp Metabolic Hjw188 AL K PHOS 69 U/L 08/20/2017 Comp Metabolic Gug287 T(SGOT) 18 U/L 08/20/2017 Comp Metabolic Hcr937 AL T(SGPT) 19 U/L 08/20/2017 Comp Metabolic Ilf836 BI LI T 0.6 mg/dL 08/20/2017 Comp Metabolic Zpx427 AL BUMIN 4.0 g/dL 08/20/2017 Comp Metabolic Wnv317 TP RO 6.6 g/dL 08/20/2017 Comp Metabolic Xpo962 GL OB 2.6 g/dL 08/20/2017 Comp Metabolic Sgo001 A/ G Ratio 1.5 Ratio 08/20/2017 Comp Metabolic Muj224 Os mo 275 mOsmo 08/20/2017 Vitamin D 25 Oh Vnp8810 VITAMIN D, 25 HYDROXY 30.96 ng/mL 08/20/2017 B12 Mjc362 B12 >1500.00 pg/ml 02/22/2017 Cbc With Differential [...] 35.7 pg 02/20/2017 Cbc With Differential Ord2 Mcdonald% 6.3 % 02/20/2017 Cbc With Differential Ord2 MCHC 33.5 pg 02/20/2017 Cbc With Differential Ord2 Eos% 4.6 % 02/20/2017 Cbc With Differential Ord2 PLT 205 K/ul 02/20/2017 Cbc With Differential Ord2 Baso% 0.4 % 02/20/2017 Cbc With Differential Ord2 Neut ABS# 4.37 K/ul 02/20/2017 Cbc With Differential Ord2 RDW 14.9 % 02/20/2017 Cbc With Differential Ord2 Lymph ABS# 3.19 K/ul 02/20/2017 Cbc With Differential Ord2 Mcdonald ABS# 0.5 K/ul 02/20/2017 Cbc With Differential Ord2 Eos ABS# 0.4 K/ul 02/20/2017 Cbc With Differential Ord2 Baso ABS# 0.0 K/ul 02/20/2017 Comp Metabolic Seo128 NA 138 mEq/L 02/20/2017 Comp Metabolic Efy580 K 4.5 mEq/L 02/20/2017 Comp Metabolic Zdm251 CL 101 mEq/L 02/20/2017 Comp Metabolic Juj189 CO2 31.0 mEq/L 02/20/2017 Comp Metabolic Ubu546 AN ION GAP 11 02/20/2017 Comp Metabolic Vhp717 GL UCOSE 120 mg/dL 02/20/2017 Comp Metabolic Pkd588 Cr eat 0.9 mg/dL 02/20/2017 Comp Metabolic Hvr288 eG FR 83 ml/min/1.73m2 02/20 Comp Metabolic Uus637 BUN 15 mg/dL 02/20/2017 Comp Metabolic Szn653 B/ C Ratio 16.1 Ratio 02/20/2017 Comp Metabolic Cjy911 CA LCIUM 9.1 mg/dL 02/20/2017 Comp Metabolic Bnw483 AL K PHOS 67 U/L 02/20/2017 Comp Metabolic Iqd920 T(SGOT) 15 U/L 02/20/2017 Comp Metabolic Sig212 AL T(SGPT) 16 U/L 02/20/2017 Comp Metabolic Abj429 BI LI T 0.5 mg/dL 02/20/2017 Comp Metabolic Fwl273 AL BUMIN 4.0 g/dL 02/20/2017 Comp Metabolic Jpy229 TP RO 6.4 g/dL 02/20/2017 Comp Metabolic Qas286 GL OB 2.4 g/dL 02/20/2017 Comp Metabolic Hlg867 A/ G Ratio 1.7 Ratio 02/20/2017 Comp Metabolic Pdb600 Os mo 278 mOsmo 02/20/2017 Tsh Ord6 hTSH II 2.05 uIU/mL 02/20/2017 %Hba1C Wwi071 % HbA1c 92322-9 7.6 % 02/20/2017 %Hba1C Drf509 Gluc Ave 171 mg/dL 02/20/2017 Vitamin D 25 Oh Qsg4158 VITAMIN D, 25 HYDROXY 44.40 ng/mL 12/21/2016 Comp Metabolic Btw170 NA 131 mEq/L 12/21/2016 Comp Metabolic Znx020 K 4.2 mEq/L 12/21/2016 Comp Metabolic Iyk784 CL 97 mEq/L 12/21/2016 Comp Metabolic Rtz548 CO2 27.0 mEq/L 12/21/2016 Comp Metabolic Hvy858 AN ION GAP 11 12/21/2016 Comp Metabolic Jgy071 GL UCOSE 266 mg/dL 12/21/2016 Comp Metabolic Nvz734 Cr eat 0.9 mg/dL 12/21/2016 Comp Metabolic Lfv965 eG FR 88 ml/min/1.73m2 12/21 Comp Metabolic Fec539 BUN 12 mg/dL 12/21/2016 Comp Metabolic Sxj259 B/ C Ratio 13.6 Ratio 12/21/2016 Comp Metabolic Mvd300 CA LCIUM 8.6 mg/dL 12/21/2016 Comp Metabolic Uyy524 AL K PHOS 69 U/L 12/21/2016 Comp Metabolic Car363 T(SGOT) 15 U/L 12/21/2016 Comp Metabolic Duk722 AL T(SGPT) 14 U/L 12/21/2016 Comp Metabolic Wmo143 BI LI T 0.3 mg/dL 12/21/2016 Comp Metabolic Hzf853 AL BUMIN 3.7 g/dL 12/21/2016 Comp Metabolic Fns388 TP RO 5.9 g/dL 12/21/2016 Comp Metabolic Tyt765 GL OB 2.2 g/dL 12/21/2016 Comp Metabolic Tdl669 A/ G Ratio 1.7 Ratio 12/21/2016 Comp Metabolic Bfp599 Os mo 272 mOsmo 12/21/2016 Cbc With Differential Ord2 WBC 5.19 K/ul 12/21/2016 Cbc With Differential Ord2 RBC 3.27 M/ul 12/21/2016 Cbc With Differential Ord2 HGB 11.3 g/dl 12/21/2016 Cbc With Differential Ord2 Neut% 49.3 % 12/21/2016 Cbc With Differential Ord2 HCT 33.0 % 12/21/2016 Cbc With Differential Ord2 Lymph% 39.5 % 12/21/2016 Cbc With Differential Ord2 MCV 100.9 fl 12/21/2016 Cbc With Differential Ord2 MCH 34.6 pg 12/21/2016 Cbc With Differential Ord2 Mcdonald% 6.9 % 12/21/2016 Cbc With Differential Ord2 [...] 2.05 K/ul 12/21/2016 Cbc With Differential Ord2 Mcdonald ABS# 0.4 K/ul 12/21/2016 Cbc With Differential Ord2 Eos ABS# 0.2 K/ul 12/21/2016 Cbc With Differential Ord2 Baso ABS# 0.0 K/ul 12/21/2016 Comp Metabolic Sjo694 NA 138 mEq/L 09/03/2016 Comp Metabolic Vkn699 K 4.5 mEq/L 09/03/2016 Comp Metabolic Sgd745 CL 102 mEq/L 09/03/2016 Comp Metabolic Tgm968 CO2 30.0 mEq/L 09/03/2016 Comp Metabolic Kdq276 AN ION GAP 11 09/03/2016 Comp Metabolic Dey511 GL UCOSE 113 mg/dL 09/03/2016 Comp Metabolic Pef608 Cr eat 1.0 mg/dL 09/03/2016 Comp Metabolic Gyy566 eG FR 81 ml/min/1.73m2 09/03 Comp Metabolic Dft138 BUN 10 mg/dL 09/03/2016 Comp Metabolic Nlm124 B/ C Ratio 10.5 Ratio 09/03/2016 Comp Metabolic Opm938 CA LCIUM 9.1 mg/dL 09/03/2016 Comp Metabolic Vws672 AL K PHOS 71 U/L 09/03/2016 Comp Metabolic Mdn135 T(SGOT) 18 U/L 09/03/2016 Comp Metabolic Dch467 AL T(SGPT) 17 U/L 09/03/2016 Comp Metabolic Dps371 BI LI T 0.6 mg/dL 09/03/2016 Comp Metabolic Dqf859 AL BUMIN 4.1 g/dL 09/03/2016 Comp Metabolic Smg642 TP RO 6.4 g/dL 09/03/2016 Comp Metabolic Vkn334 GL OB 2.3 g/dL 09/03/2016 Comp Metabolic Tsv708 A/ G Ratio 1.8 Ratio 09/03/2016 Comp Metabolic Dbk095 Os mo 276 mOsmo 09/03/2016 Vitamin D 25 Oh Bjq8579 VITAMIN D, 25 HYDROXY 28.23 ng/mL 09/03/2016 [...] 34.4 pg 09/03/2016 Cbc With Differential Ord2 Mcdonald% 8.9 % 09/03/2016 Cbc With Differential Ord2 [...] 3.34 K/ul 09/03/2016 Cbc With Differential Ord2 Mcdonald ABS# 0.7 K/ul 09/03/2016 Cbc With Differential Ord2 Eos ABS# 0.4 K/ul 09/03/2016 Cbc With Differential Ord2 Baso ABS# 0.0 K/ul 09/03/2016 Lipid Ord30 CHOL 120 mg/dL 09/03/2016 Lipid Ord30 HDL 33.0 mg/dl 09/03/2016 Lipid Ord30 TRIG 161 mg/dL 09/03/2016 Lipid Ord30 LDL 55 mg/dL 09/03/2016 Lipid Ord30 C/HDL 3.6 Ratio 09/03/2016 %Hba1C Xjq198 % HbA1c 12021-4 7.5 % 09/03/2016 %Hba1C Vlw851 Gluc Ave 169 mg/dL 09/03/2016 Tsh Ord6 hTSH II 1.50 uIU/mL 05/23/2016 %Hba1C Exr749 % HbA1c 97375-4 7.6 % 05/23/2016 %Hba1C Ebn381 Gluc Ave 171 mg/dL 05/23/2016 Comp Metabolic Jjk442 NA 135 mEq/L 05/23/2016 Comp Metabolic Tia731 K 4.4 mEq/L 05/23/2016 Comp Metabolic Glk708 CL 99 mEq/L 05/23/2016 Comp Metabolic Lyp340 CO2 28.0 mEq/L 05/23/2016 Comp Metabolic Fdo934 AN ION GAP 12 05/23/2016 Comp Metabolic Oyd815 GL UCOSE 257 mg/dL 05/23/2016 Comp Metabolic Wno213 Cr eat 0.8 mg/dL 05/23/2016 Comp Metabolic Hus300 eG FR 95 ml/min/1.73m2 05/23 Comp Metabolic Ynk620 BUN 11 mg/dL 05/23/2016 Comp Metabolic Bqw908 B/ C Ratio 13.3 Ratio 05/23/2016 Comp Metabolic Lfe350 CA LCIUM 9.0 mg/dL 05/23/2016 Comp Metabolic Nrq251 AL K PHOS 82 U/L 05/23/2016 Comp Metabolic Pna168 T(SGOT) 21 U/L 05/23/2016 Comp Metabolic Lol654 AL T(SGPT) 20 U/L 05/23/2016 Comp Metabolic Huk956 BI LI T 0.3 mg/dL 05/23/2016 Comp Metabolic Sii776 AL BUMIN 4.0 g/dL 05/23/2016 Comp Metabolic Lnq944 TP RO 6.4 g/dL 05/23/2016 Comp Metabolic Dzk933 GL OB 2.4 g/dL 05/23/2016 Comp Metabolic Hay687 A/ G Ratio 1.6 Ratio 05/23/2016 Comp Metabolic Ocq401 Os mo 278 mOsmo 05/23/2016 Cbc With Differential Ord2 WBC 6.39 K/ul 05/23/2016 Cbc With Differential Ord2 RBC 3.48 M/ul 05/23/2016 Cbc With Differential Ord2 HGB 12.0 g/dl 05/23/2016 Cbc With Differential Ord2 Neut% 52.8 % 05/23/2016 Cbc With Differential Ord2 HCT 35.5 % 05/23/2016 Cbc With Differential Ord2 MCV 102.0 fl 05/23/2016 Cbc With Differential Ord2 Lymph% 37.2 % 05/23/2016 Cbc With Differential Ord2 MCH 34.5 pg 05/23/2016 Cbc With Differential Ord2 Mcdonald% 6.1 % 05/23/2016 Cbc With Differential Ord2 Eos% 3.4 % 05/23/2016 Cbc With Differential Ord2 MCHC 33.8 pg 05/23/2016 Cbc With Differential Ord2 PLT 192 K/ul 05/23/2016 Cbc With Differential Ord2 Baso% 0.5 % 05/23/2016 Cbc With Differential Ord2 RDW 13.5 % 05/23/2016 Cbc With Differential Ord2 Neut ABS# 3.37 K/ul 05/23/2016 Cbc With Differential Ord2 Lymph ABS# 2.38 K/ul 05/23/2016 Cbc With Differential Ord2 Mcdonald ABS# 0.4 K/ul 05/23/2016 Cbc With Differential Ord2 Eos ABS# 0.2 K/ul 05/23/2016 Cbc With Differential Ord2 Baso ABS# 0.0 K/ul 05/23/2016 B12 Mjb614 B12 597.00 pg/ml 05/23/2016 Metabolic Ord15 NA [...] 0.92 uIU/mL 07/29/2015 Vitamin D 25 Oh Qsx3154 VITAMIN D, 25 HYDROXY 26.93 ng/mL 07/29/2015 %Hba1C Tda173 % HbA1c 88029-8 8.8 % 07/29/2015 %Hba1C Ndz165 Gluc Ave 206 mg/dL 07/29/2015 Cbc With [...] Ord2 RDW 14.9 % 07/29/2015 Comp Metabolic Msn316 NA 138 mEq/L 07/29/2015 Comp Metabolic Yim581 K 4.4 mEq/L 07/29/2015 Comp Metabolic Zcd229 CL 102 mEq/L 07/29/2015 Comp Metabolic Kre558 CO2 28.0 mEq/L 07/29/2015 Comp Metabolic Ycg044 AN ION GAP 12 07/29/2015 Comp Metabolic Hgr439 GL UCOSE 261 mg/dL 07/29/2015 Comp Metabolic Wgt323 Cr eat 1.0 mg/dL 07/29/2015 Comp Metabolic Ykz379 eG FR 77 ml/min/1.73m2 07/29 Comp Metabolic Pvr780 BUN 13 mg/dL 07/29/2015 Comp Metabolic Lbj593 B/ C Ratio 13.0 Ratio 07/29/2015 Comp Metabolic Oru963 CA LCIUM 9.1 mg/dL 07/29/2015 Comp Metabolic Bnh802 AL K PHOS 64 U/L 07/29/2015 Comp Metabolic Zqo629 T(SGOT) 20 U/L 07/29/2015 Comp Metabolic Aga528 AL T(SGPT) 22 U/L 07/29/2015 Comp Metabolic Wvu349 BI LI T 0.4 mg/dL 07/29/2015 Comp Metabolic Iuv813 AL BUMIN 4.0 g/dL 07/29/2015 Comp Metabolic Fzv522 TP RO 6.1 g/dL 07/29/2015 Comp Metabolic Hjh853 GL OB 2.1 g/dL 07/29/2015 Comp Metabolic Uff360 A/ G Ratio 1.9 Ratio 07/29/2015 Comp Metabolic Uam910 Os mo 285 mOsmo 07/29/2015 Cbc With [...] Ord2 RDW 13.1 % 05/06/2015 Comp Metabolic Ppk313 NA 134 mEq/L 05/06/2015 Comp Metabolic Zni720 K 4.4 mEq/L 05/06/2015 Comp Metabolic Ffu923 CL 98 mEq/L 05/06/2015 Comp Metabolic Srg584 CO2 29.0 mEq/L 05/06/2015 Comp Metabolic Vwg797 AN ION GAP 11 05/06/2015 Comp Metabolic Zna750 GL UCOSE 321 mg/dL 05/06/2015 Comp Metabolic Csw875 Cr eat 1.0 mg/dL 05/06/2015 Comp Metabolic Ova607 eG FR 78 ml/min/1.73m2 05/06 Comp Metabolic Did867 BUN 20 mg/dL 05/06/2015 Comp Metabolic Ghe754 B/ C Ratio 20.4 Ratio 05/06/2015 Comp Metabolic Ttd588 CA LCIUM 9.5 mg/dL 05/06/2015 Comp Metabolic Otq885 AL K PHOS 62 U/L 05/06/2015 Comp Metabolic Axi368 T(SGOT) 21 U/L 05/06/2015 Comp Metabolic Kyk090 AL T(SGPT) 37 U/L 05/06/2015 Comp Metabolic Nva476 BI LI T 0.4 mg/dL 05/06/2015 Comp Metabolic Pnm509 AL BUMIN 3.8 g/dL 05/06/2015 Comp Metabolic Dok092 TP RO 6.1 g/dL 05/06/2015 Comp Metabolic Roy997 GL OB 2.3 g/dL 05/06/2015 Comp Metabolic Rri382 A/ G Ratio 1.7 Ratio 05/06/2015 Comp Metabolic Ppa718 Os mo 283 mOsmo 05/06/2015 Tsh Ord6 hTSH II 1.65 uIU/mL 02/18/2015 B12 Cmk062 B12 605.00 pg/ml 02/18/2015 %Hba1C Cop324 % HbA1c 78970-7 8.3 % 02/18/2015 %Hba1C Ldf491 Gluc Ave 192 mg/dL 02/18/2015 Cbc With [...] Ord2 RDW 13.9 % 02/17/2015 Comp Metabolic Jqs902 NA 137 mEq/L 02/17/2015 Comp Metabolic Gzn073 K 4.4 mEq/L 02/17/2015 Comp Metabolic Inm575 CL 100 mEq/L 02/17/2015 Comp Metabolic Ssa173 CO2 31.0 mEq/L 02/17/2015 Comp Metabolic Qmm948 AN ION GAP 10 02/17/2015 Comp Metabolic Uqr220 GL UCOSE 307 mg/dL 02/17/2015 Comp Metabolic Bem929 Cr eat 1.0 mg/dL 02/17/2015 Comp Metabolic Kxu836 eG FR 74 ml/min/1.73m2 02/17 Comp Metabolic Bsx684 BUN 22 mg/dL 02/17/2015 Comp Metabolic Pzy797 B/ C Ratio 21.4 Ratio 02/17/2015 Comp Metabolic Lwa038 CA LCIUM 9.5 mg/dL 02/17/2015 Comp Metabolic Xfz991 AL K PHOS 78 U/L 02/17/2015 Comp Metabolic Ion225 T(SGOT) 18 U/L 02/17/2015 Comp Metabolic Pum208 AL T(SGPT) 32 U/L 02/17/2015 Comp Metabolic Ric682 BI LI T 0.5 mg/dL 02/17/2015 Comp Metabolic Mty896 AL BUMIN 4.3 g/dL 02/17/2015 Comp Metabolic Zag152 TP RO 6.7 g/dL 02/17/2015 Comp Metabolic Msd148 GL OB 2.4 g/dL 02/17/2015 Comp Metabolic Fbw245 A/ G Ratio 1.8 Ratio 02/17/2015 Comp Metabolic Afw281 Os mo 289 mOsmo 02/17/2015 Review of [...] smoking 02/17/2015 Respiratory cough 2014 Respiratory dyspnea 04/2015 Genitourinary/Nephrology No dysuria 02/17/2015 Genitourinary/Nephrology No [...] accomodation 12/02/2018 None Full Exam - General 1994 [...] thin 10/17/2018 None Full Exam - General 1995 Eyes conjunctiva/eyelids Overall: conjunctiva clear 10/17/2018 None Full Exam - General 1994 Eyes conjunctiva/eyelids Overall: cornea clear 10/17/2018 None Full Exam - General 1994 Eyes conjunctiva/eyelids Overall: eyelids normal 10/17/2018 None Full Exam - General 1994 Eyes pupils and irises Overall: pupils equal, round, reactive to light and accomodation 10/17/2018 None Full Exam - General 1995 Ears/Nose/Throat otoscopic exam Overall: external auditory canals clear 10/17/2018 None Full Exam - General 1995 Ears/Nose/Throat otoscopic exam Overall: tympanic membranes clear 10/17/2018 None Full Exam - General 1995 Ears/Nose/Throat lips/teeth/gingiva Overall: benign lips 10/17/2018 None Full Exam - General 1994 Ears/Nose/Throat oral cavity/pharynx/larynx Overall: oral mucosa clear 10/17/2018 None Full Exam - General 1995 Ears/Nose/Throat oral cavity/pharynx/larynx Overall: oropharyngeal mucosa clear [...] spine 09/02/2018 None Full Exam - General 1995 Musculoskeletal gait and station Overall: normal gait [...] thin 01/13/2018 None Full Exam - General 1995 Eyes conjunctiva/eyelids Overall: conjunctiva clear 01/13/2018 None [...] inspection of skin Location: face 03/07/2015 on scientology, cheeks,actinic keratosis with irritation on left cheek - left scientology - croptherapy on these two lesions - [...] Procedure Codes Date THER/PROPH/DIAG INJ SC/IM CPT-4: 93689 03/31/2019 THER/PROPH/DIAG INJ SC/IM CPT-4: 77909 03/17/2019 THER/PROPH/DIAG INJ SC/IM CPT-4: 36923 03/04/2019 THER/PROPH/DIAG INJ SC/IM CPT-4: 00055 02/16/2019 THER/PROPH/DIAG INJ SC/IM CPT-4: 85635 01/30/2019 THER/PROPH/DIAG INJ SC/IM CPT-4: 19397 01/16/2019 THER/PROPH/DIAG INJ SC/IM CPT-4: 80372 01/01/2019 THER/PROPH/DIAG INJ SC/IM CPT-4: 57216 12/17/2018 THER/PROPH/DIAG INJ SC/IM CPT-4: 14904 12/02/2018 THER/PROPH/DIAG INJ SC/IM CPT-4: 33635 11/18/2018 THER/PROPH/DIAG INJ SC/IM CPT-4: 37695 11/04/2018 THER/PROPH/DIAG INJ SC/IM CPT-4: 95136 10/14/2018 THER/PROPH/DIAG INJ SC/IM CPT-4: 30855 10/03/2018 THER/PROPH/DIAG INJ SC/IM CPT-4: 76548 09/23/2018 THER/PROPH/DIAG INJ SC/IM CPT-4: 54520 09/02/2018 THER/PROPH/DIAG INJ SC/IM CPT-4: 26128 08/21/2018 THER/PROPH/DIAG INJ SC/IM CPT-4: 84326 08/08/2018 THER/PROPH/DIAG INJ SC/IM CPT-4: 53796 07/28/2018 THER/PROPH/DIAG INJ SC/IM CPT-4: 09442 07/16/2018 THER/PROPH/DIAG INJ SC/IM CPT-4: 25503 07/02/2018 PPPS, SUBSEQ VISIT CPT- 4: G0439 06/30/2018 THER/PROPH/DIAG INJ SC/IM CPT-4: 42379 06/24/2018 THER/PROPH/DIAG INJ SC/IM CPT-4: 88875 06/13/2018 ADMIN INFLUENZA VIRU S VAC CPT-4: G0008 06/06/2018 FLU VACC PRSV FREE I NC ANTIG CPT-4: 57862 06/06/2018 THER/PROPH/DIAG INJ SC/IM CPT-4: 43352 06/05/2018 THER/PROPH/DIAG INJ SC/IM CPT-4: 25506 05/30/2018 THER/PROPH/DIAG INJ SC/IM CPT-4: 47512 05/22/2018 THER/PROPH/DIAG INJ SC/IM CPT-4: 85936 05/12/2018 THER/PROPH/DIAG INJ SC/IM CPT-4: 23746 05/02/2018 THER/PROPH/DIAG INJ SC/IM CPT-4: 32332 04/24/2018 THER/PROPH/DIAG INJ SC/IM CPT-4: 07425 04/17/2018 KETOROLAC TROMETHAMI NE INJ CPT-4: J1885 03/07/2018 URINALYSIS NONAUTO W /O SCOPE CPT-4: 84519 03/07/2018 THER/PROPH/DIAG INJ SC/IM CPT-4: 47816 02/20/2018 TRIAMCINOLONE ACET I [place] NOS CPT-4: J3301 01/30/2018 THER/PROPH/DIAG INJ SC/IM CPT-4: 43544 01/17/2018 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 3-[address]: 972327554 CPT-4: G0436 04/25/2017 ADMIN INFLUENZA VIRU S VAC CPT-4: G0008 04/25/2017 ADMIN PNEUMOCOCCAL V ACCINE SNOMED CT: 82227266 CPT-4: G0009 04/25/2017 PNEUMOCOCCAL VACC [address]: 65158829 CPT-4: 93471 04/25/2017 FLU VACC PRSV FREE I NC ANTIG CPT-4: 17576 04/25/2017 ADMIN INFLUENZA VIRU S VAC CPT-4: G0008 05/22/2016 FLU VACC 4 TELLY 3 YRS PLUS IM Formatting Model/CDA Sections, Assigned to/Angela Clemons SNOMED CT: 97082015 CPT-4: 76902Rctikbo 05/22/2016 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 3-[address]: 248143491 CPT-4: G0436 11/25/2015 URINALYSIS NONAUTO W /O SCOPE CPT-4: 49006 05/09/2015 TRIAMCINOLONE ACET I [place] NOS CPT-4: J3301 04/12/2015 DESTRUCT PREMALG LESION CPT-4: 65252 03/07/2015 DESTRUCT PREMALG LES 2-14 CPT-4: 27475 03/07/2015 REMOVE IMPACTED EAR WAX UNI CPT-4: 14186 12/31/2014 THER/PROPH/DIAG INJ SC/IM CPT-4: 96362 12/23/2014 TRIAMCINOLONE ACET I [place] NOS CPT-4: J3301 12/23/2014 Vital Signs Date Vital 03/03/2019 Blood Pressure 1: 150/72 Code: 8480-6 BMI: 20.6 Code: 21149-9 Heart Rate 1: 63 bpm Height: 5'11" SpO2: 100% Weight: 147 lbs 8 oz 12/02/2018 Blood Pressure 1: 140/70 Code: 8480-6 BMI: 21.9 Code: 21412-3 Heart Rate 1: 61 bpm Height: 5'11" SpO2: 94% Weight: 157 lbs 10/17/2018 Blood Pressure 1: 124/54 Code: 8480-6 BMI: 21.9 Code: 11840-7 Heart Rate 1: 64 bpm Height: 5'11" SpO2: 93% Weight: 157 lbs 09/02/2018 Blood Pressure 1: 140/80 Code: 8480-6 BMI: 21.2 Code: 71166-1 Heart Rate 1: 68 bpm Height: 5'11" SpO2: 97% Weight: 152 lbs 06/30/2018 BMI: 21.8 Code: 75334-4 Height: 5'11" Weight: 156 lbs 06/06/2018 Blood Pressure 1: 128/76 Code: 8480-6 BMI: 22.0 Code: 25017-3 Heart Rate 1: 81 bpm Height: 5'11" SpO2: 92% Weight: 158 lbs 04/04/2018 Blood Pressure 1: 124/70 Code: 8480-6 BMI: 20.8 Code: 25598-9 Heart Rate 1: 65 bpm Height: 5'11" SpO2: 95% Weight: 149 lbs 03/07/2018 Blood Pressure 1: 148/70 Code: 8480-6 BMI: 21.2 Code: 49743-5 Heart Rate 1: 66 bpm Height: 5'11" SpO2: 94% Weight: 152 lbs 02/20/2018 Blood Pressure 1: 134/58 Code: 8480-6 BMI: 20.5 Code: 01352-1 Heart Rate 1: 61 bpm Height: 5'11" SpO2: 92% Weight: 147 lbs 01/30/2018 Blood Pressure 1: 158/68 Code: 8480-6 BMI: 21.5 Code: 67371-3 Heart Rate 1: 71 bpm Height: 5'11" SpO2: 92% Weight: 154 lbs 01/14/2018 Blood Pressure 1: 156/70 Code: 8480-6 Height: Weight: 01/13/2018 Blood Pressure 1: 148/62 Code: 8480-6 BMI: 20.9 Code: 78702-9 Heart Rate 1: 54 bpm Height: 5'11" SpO2: 97% Weight: 150 lbs 11/19/2017 Blood Pressure 1: 150/60 Code: 8480-6 BMI: 21.8 Code: 46222-8 Heart Rate 1: 63 bpm Height: 5'11" SpO2: 98% Weight: 156 lbs 10/02/2017 Blood Pressure 1: 168/60 Code: 8480-6 BMI: 21.9 Code: 69445-4 Heart Rate 1: 52 bpm Height: 5'11" SpO2: 97% Weight: 157 lbs 07/23/2017 Blood Pressure 1: 170/70 Code: 8480-6 BMI: 21.8 Code: 16467-0 Heart Rate 1: 65 bpm Height: 5'11" SpO2: 98% Weight: 156 lbs 04/25/2017 Blood Pressure 1: 138/60 Code: 8480-6 BMI: 21.6 Code: 03039-3 Heart Rate 1: 55 bpm Height: 5'11" SpO2: 93% Weight: 155 lbs 02/19/2017 Blood Pressure 1: 138/64 Code: 8480-6 BMI: 21.3 Code: 96541-3 Heart Rate 1: 52 bpm Height: 5'11" SpO2: 96% Weight: 152 lbs 8 oz 01/21/2017 Blood Pressure 1: 160/68 Code: 8480-6 BMI: 21.3 Code: 58410-6 Heart Rate 1: 62 bpm Height: 5'11" SpO2: 96% Weight: 153 lbs 12/20/2016 Blood Pressure 1: 124/66 Code: 8480-6 BMI: 21.5 Code: 04797-0 Height: 5'11" Weight: 154 lbs 08/23/2016 Blood Pressure 1: 142/52 Code: 8480-6 BMI: 21.2 Code: 79338-5 Heart Rate 1: 54 bpm Height: 5'11" SpO2: 96% Weight: 152 lbs 05/22/2016 Blood Pressure 1: 130/76 Code: 8480-6 BMI: 21.5 Code: 48821-5 Heart Rate 1: 78 bpm Height: 5'11" SpO2: 92% Weight: 154 lbs 02/24/2016 Blood Pressure 1: 128/80 Code: 8480-6 BMI: 21.2 Code: 50464-1 Heart Rate 1: 74 bpm Height: 5'11" SpO2: 96% Weight: 152 lbs 01/27/2016 Blood Pressure 1: 144/60 Code: 8480-6 BMI: 21.2 Code: 02189-2 Heart Rate 1: 74 bpm Height: 5'11" SpO2: 97% Weight: 152 lbs 11/25/2015 Blood Pressure 1: 110/52 Code: 8480-6 BMI: 21.9 Code: 19411-8 Heart Rate 1: 65 bpm Height: 5'11" SpO2: 92% Weight: 157 lbs 07/28/2015 Blood Pressure 1: 138/62 Code: 8480-6 BMI: 21.8 Code: 06557-9 Heart Rate 1: 63 bpm Height: 5'11" SpO2: 91% Weight: 156 lbs 05/26/2015 Blood Pressure 1: 120/58 Code: 8480-6 BMI: 21.5 Code: 68476-4 Heart Rate 1: 99 bpm Height: 5'11" SpO2: 96% Weight: 154 lbs 05/06/2015 Blood Pressure 1: 120/58 Code: 8480-6 BMI: 21.2 Code: 25742-8 Heart Rate 1: 66 bpm Height: 5'11" SpO2: 96% Weight: 152 lbs 04/25/2015 Blood Pressure 1: 136/62 Code: 8480-6 BMI: 21.2 Code: 80896-8 Heart Rate 1: 63 bpm Height: 5'11" SpO2: 97% Weight: 152 lbs 04/12/2015 Blood Pressure 1: 160/58 Code: 8480-6 BMI: 21.6 Code: 40604-6 Heart Rate 1: 62 bpm Height: 5'11" Weight: 155 lbs 03/24/2015 Blood Pressure 1: 138/68 Code: 8480-6 BMI: 22.0 Code: 73792-7 Heart Rate 1: 65 bpm Height: 5'11" SpO2: 96% Weight: 158 lbs 03/07/2015 Blood Pressure 1: 116/52 Code: 8480-6 BMI: 22.2 Code: 61011-0 Heart Rate 1: 64 bpm Height: 5'11" SpO2: 97% Weight: 159 lbs 02/17/2015 Blood Pressure 1: 148/58 Code: 8480-6 BMI: 21.3 Code: 28489-7 Heart Rate 1: 63 bpm Height: 5'11" SpO2: 97% Weight: 153 lbs 12/31/2014 Blood Pressure 1: 100/60 Code: 8480-6 BMI: 21.8 Code: 09852-5 Heart Rate 1: 68 bpm Height: 5'11" Weight: 156 lbs 12/23/2014 Blood Pressure 1: 148/64 Code: 8480-6 BMI: 21.9 Code: 05255-0 Heart Rate 1: 64 bpm Height: 5'11" [...] ongoing 03/07/2015 None Hospital Follow Up _ Ot er: vertigo 03/07/2015 None Hospital Follow Up [...] Encounters Encounter Performer Loca tion Codes Date ([id number]) 82112 EST. P ATIENT, LEVEL IV Diagnosis: Chronic obstructive pulmonary disease, unspecified[ICD10: J44.9] Diagnosis: Mixed hyperlipidemia[ICD10: E78.2] Diagnosis: Type 2 diabetes mellitus with hyperglycemia[ICD10: E11.65] Diagnosis: Testicular dysfunction, unspecified[ICD10: E29.9] Diagnosis: Abnormal weight loss[ICD10: R63.4] [facility] CPT-4: 92764 03/03/2019 ([id number]) 05569 EST. 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 P ATIENT, LEVEL III Diagnosis: Orthostatic hypotension[ICD10: I95.1] Diagnosis: Low back pain[ICD10: M54.5] Diagnosis: Unsteadiness on feet[ICD10: R26.81] [facility] CPT-4: 02989 10/17/2018 ([id number]) 61513 EST. P ATIENT, LEVEL IV Diagnosis: Essential (primary) hypertension[ICD10: I10] Diagnosis: Chronic obstructive pulmonary disease, unspecified[ICD10: J44.9] Diagnosis: Type 2 diabetes mellitus with hyperglycemia[ICD10: E11.65] Diagnosis: Vitamin D deficiency, unspecified[ICD10: E55.9] Diagnosis: Mixed hyperlipidemia[ICD10: E78.2] Diagnosis: Testicular dysfunction, unspecified[ICD10: E29.9] [facility] CPT-4: 26007 09/02/2018 ([id number]) 90919 EST. P ATIENT, LEVEL IV Diagnosis: Cellulitis of face[ICD10: L03.211] Diagnosis: Type 2 diabetes mellitus without complications[ICD10: E11.9] Diagnosis: Essential (primary) hypertension[ICD10: I10] Diagnosis: Encounter for immunization[ICD10: Z23] [facility] CPT-4: 54508 06/06/2018 ([id number]) 48650 EST. P ATIENT, LEVEL IV Diagnosis: Essential (primary) hypertension[ICD10: I10] Diagnosis: Chronic obstructive pulmonary disease, unspecified[ICD10: J44.9] Diagnosis: Testicular dysfunction, unspecified[ICD10: E29.9] Diagnosis: Type 2 diabetes mellitus with hyperglycemia[ICD10: E11.65] Karmen Ash MD, [facility] CPT-4: 41531 04/04/2018 ([id number]) 21341 EST. P ATIENT, LEVEL III Diagnosis: Low back pain[ICD10: M54.5] Diagnosis: Dysuria[ICD10: R30.0] [facility]en [facility], [facility] CPT-4: 96170 03/07/2018 ([id number]) 91564 EST. P ATIENT, LEVEL IV Diagnosis: Essential (primary) hypertension[ICD10: I10] Diagnosis: Chronic obstructive pulmonary disease, unspecified[ICD10: J44.9] Diagnosis: Abnormal weight loss[ICD10: R63.4] Diagnosis: Low back pain[ICD10: M54.5] Diagnosis: Testicular dysfunction, unspecified[ICD10: E29.9] Diagnosis: Type 2 diabetes mellitus with hyperglycemia[ICD10: E11.65] Karmen [facility] MD, [facility] CPT-4: 44947 02/20/2018 ([id number]) 02283 EST. P ATIENT, LEVEL III Diagnosis: Chronic obstructive pulmonary disease with (acute) exacerbation[ICD10: J44.1] [facility], [facility] CPT-4: 23607 01/30/2018 16106 EST. PATIENT, LEVEL II Diagnosis: Insect bite (nonvenomous), left lower leg, initial encounter[ICD10: S80.862A] [facility]en [facility] MD, [facility] CPT-4: 32984 01/14/2018 ([id number]) 32864 EST. P ATIENT, LEVEL IV Diagnosis: Type 2 diabetes mellitus with hyperglycemia[ICD10: E11.65] Diagnosis: Chronic obstructive pulmonary disease, unspecified[ICD10: J44.9] Diagnosis: Other fatigue[ICD10: R53.83] [facility]en [facility] MD, [facility] CPT- 4: 47706 01/13/2018 ([id number]) 83076 EST. P ATIENT, LEVEL IV Diagnosis: Type 2 diabetes mellitus with hyperglycemia[ICD10: E11.65] Diagnosis: Vitamin D deficiency, unspecified[ICD10: E55.9] Diagnosis: Essential (primary) hypertension[ICD10: I10] Diagnosis: Abdominal distension (gaseous)[ICD10: R14.0] Diagnosis: Drug induced constipation[ICD10: K59.03] Karmen Ash MD, [facility] CPT-4: 52676 11/19/2017 [id number] EST. PATIENT, LEVEL IV Diagnosis: Low back pain[ICD10: M54.5] Diagnosis: Chronic obstructive pulmonary disease, unspecified[ICD10: J44.9] Brunilda Ash MD, [facility] CPT-4: 18214 10/02/2017 ([id number]) 66834 EST. P ATIENT, LEVEL IV Diagnosis: Essential (primary) hypertension[ICD10: I10] Diagnosis: Type 2 diabetes mellitus with hyperglycemia[ICD10: E11.65] Diagnosis: Vitamin D deficiency, unspecified[ICD10: E55.9] Diagnosis: Mixed hyperlipidemia[ICD10: E78.2] Karmen Ash MD, [facility] CPT-4: 34837 07/23/2017 ([id number]) 59975 EST. P ATIENT, LEVEL IV Diagnosis: Essential (primary) hypertension[ICD10: I10] Diagnosis: Type 2 diabetes mellitus with hyperglycemia[ICD10: E11.65] Diagnosis: Chronic obstructive pulmonary disease, unspecified[ICD10: J44.9] Diagnosis: Nicotine dependence, unspecified, uncomplicated[ICD10: F17.200] Diagnosis: Encounter for immunization[ICD10: Z23] Karmen Ash MD, [facility] CPT-4: 17071 04/25/2017 ([id number]) 42495 EST. P ATIENT, LEVEL IV Diagnosis: Type 2 diabetes mellitus with hyperglycemia[ICD10: E11.65] Diagnosis: Essential (primary) hypertension[ICD10: I10] Diagnosis: Anemia, unspecified[ICD10: D64.9] Karmen Ash MD, [facility] CPT- 4: 25606 02/19/2017 ([id number]) 61420 EST. P ATIENT, LEVEL IV Diagnosis: Slow transit constipation[ICD10: K59.01] Diagnosis: Gastro-esophageal reflux disease without esophagitis[ICD10: K21.9] Diagnosis: Essential (primary) hypertension[ICD10: I10] Karmen Ash MD, [facility] CPT-4: 17621 01/21/2017 ([id number]) 18854 EST. P ATIENT, LEVEL IV Diagnosis: Type 2 diabetes mellitus with hyperglycemia[ICD10: E11.65] Diagnosis: Vitamin D deficiency, unspecified[ICD10: E55.9] Diagnosis: Essential (primary) hypertension[ICD10: I10] Diagnosis: Chronic obstructive pulmonary disease, unspecified[ICD10: J44.9] Karmen Ash MD, [facility] CPT-4: 26602 12/20/2016 ([id number]) 96887 EST. P ATIENT, LEVEL IV Diagnosis: Type 2 diabetes mellitus with hyperglycemia[ICD10: E11.65] Diagnosis: Essential (primary) hypertension[ICD10: I10] Diagnosis: Mixed hyperlipidemia[ICD10: E78.2] Diagnosis: Vitamin D deficiency, unspecified[ICD10: E55.9] Karmen Ash MD, [facility] CPT-4: 93938 08/23/2016 ([id number]) 18398 EST. P ATIENT, LEVEL IV Diagnosis: Type 2 diabetes mellitus with hyperglycemia[ICD10: E11.65] Diagnosis: Essential (primary) hypertension[ICD10: I10] Diagnosis: Chronic obstructive pulmonary disease, unspecified[ICD10: J44.9] Karmen Ash MD, [facility] CPT-4: 12484 05/22/2016 ([id number]) 16865 EST. P ATIENT, LEVEL III Diagnosis: Dysuria[ICD10: R30.0] Diagnosis: Essential (primary) hypertension[ICD10: I10] Karmen Ash MD, [facility] CPT-4: 00467 02/24/2016 ([id number]) 74055 EST. P ATIENT, LEVEL IV Diagnosis: Gastro-esophageal reflux disease without esophagitis[ICD10: K21.9] Diagnosis: Slow transit constipation[ICD10: K59.01] Diagnosis: Type 2 diabetes mellitus with hyperglycemia[ICD10: E11.65] Karmen Ash MD, [facility] CPT-4: 64855 01/27/2016 ([id number]) 84804 EST. P ATIENT, LEVEL IV Diagnosis: Essential (primary) hypertension[ICD10: I10] Diagnosis: Type 2 diabetes mellitus with hyperglycemia[ICD10: E11.65] Diagnosis: Vitamin D deficiency, unspecified[ICD10: E55.9] Diagnosis: Chronic obstructive pulmonary disease, unspecified[ICD10: J44.9] Diagnosis: Mixed hyperlipidemia[ICD10: E78.2] Diagnosis: Tobacco use[ICD10: Z72.0] Karmen Ash MD, [facility] CPT- 4: 54938 11/25/2015 ([id number]) 85295 EST. P ATIENT, LEVEL IV Diagnosis: Type 2 diabetes mellitus with hyperglycemia[ICD10: E11.65] Diagnosis: Essential (primary) hypertension[ICD10: I10] Diagnosis: Vitamin D deficiency, unspecified[ICD10: E55.9] Karmen Ash MD, [facility] CPT-4: 94945 07/28/2015 ([id number]) 17491 EST. P ATIENT, LEVEL III Diagnosis: Type 2 diabetes mellitus with hyperglycemia[ICD10: E11.65] Diagnosis: Essential (primary) hypertension[ICD10: I10] Violeta Ash MD, [facility] CPT-4: 12533 05/26/2015 ([id number]) 08963 EST. P ATIENT, LEVEL III Diagnosis: DIABETES TYPE II[ICD9: 250.00] Diagnosis: COPD (chronic obstructive pulmonary disease)[ICD9: 496] Diagnosis: ESSENTIAL HYPERTENSION[ICD9: 401.9] Diagnosis: Cough[ICD9: 786.2] Violeta Ash MD, [facility] CPT-4: 80427 05/06/2015 ([id number]) 09260 EST. P ATIENT, LEVEL III Diagnosis: COPD (chronic obstructive pulmonary disease)[ICD9: 496] Diagnosis: DIABETES TYPE II[ICD9: 250.00] Diagnosis: Muscle ache[ICD9: 729.1] Karmen Ash MD, [facility] CPT- 4: 61379 04/25/2015 ([id number]) 94861 EST. P ATIENT, LEVEL III Diagnosis: ACTINIC KERATOSIS[ICD9: 702.0] Diagnosis: COPD (chronic obstructive pulmonary disease)[ICD9: 496] Diagnosis: DIABETES TYPE II[ICD9: 250.00] Diagnosis: ACUTE URI[ICD9: 465.9] Violeta Ash MD, [facility] CPT-4: 62086 04/12/2015 ([id number]) 13785 EST. P ATIENT, LEVEL III Diagnosis: DIABETES TYPE II[ICD9: 250.00] Violeta Ash MD, [facility] CPT-4: 03371 03/24/2015 ([id number]) 22399 EST. P ATIENT, LEVEL IV Diagnosis: DIABETES TYPE II[ICD9: 250.00] Diagnosis: Hypoglycemia[ICD9: 251.2] Diagnosis: Skin texture changes[ICD9: 782.8] Violeta Ash MD, [facility] CPT-4: 25401 03/07/2015 ([id number]) 69604 EST. P ATIENT, LEVEL IV Diagnosis: COPD (chronic obstructive pulmonary disease)[ICD9: 496] Diagnosis: Fatigue[ICD9: 780.79] Diagnosis: Insulin dependent diabetes mellitus[ICD9: 250.00] Diagnosis: Unsteady gait[ICD9: 781.2] Maame Ash MD, [facility] CPT-4: 61934 02/17/2015 ([id number]) 06877 EST. P ATIENT, LEVEL IV Diagnosis: BPPV (benign paroxysmal positional vertigo)[ICD9: 386.11] Diagnosis: Impacted cerumen[ICD9: 380.4] Diagnosis: ESSENTIAL HYPERTENSION[ICD9: 401.9] Diagnosis: Insulin dependent diabetes mellitus[ICD9: 250.00] [facility] CPT-4: 89348 12/23/2014 ([id number]) [facility] 4 Diagnosis: Insulin dependent diabetes mellitus[ICD9: 250.00] Diagnosis: BPPV (benign paroxysmal positional vertigo)[ICD9: 386.11] Diagnosis: COPD (chronic obstructive pulmonary disease)[ICD9: 496] Diagnosis: Tobacco abuse[ICD9: 305.1] Diagnosis: Osteoarthritis[ICD9: 715.90] Karmen Ash MD, [facility] CPT- 4: 99663 12/09/2014 Plan of Care Planned Activity Notes C odes Status Date Appointment: Injection 03/31/2019 Patient Education: Patient Medication [...] patient is stable, monitor for acute changes. [employer] tobacco use -weight loss-order for chest xray provided DM -rx for CGM -patient is due for labs Low testosterone - check level 03/03/2019 App[phone] [phone] [facility] Complex 03/03/2019 Patient Education: Patient Medication Summary Completed [...] as directed 12/02/2018 Appointment: [facility] [phone] [phone] (30 min) Complex 12/02/2018 Patient Education: Patient Medication Summary Completed 12/02/2018 Patient Education: Diabetes Completed 12/02/2018 Appointment: Injection 11/18/2018 Patient Education: Patient Medication Summary Completed 11/18/2018 Appointment: Injection 11/04/2018 Patient Education: Patient Medication Summary Completed 11/04/2018 App[facility]: [facility] [phone] [phone] (30 min) Complex 10/21/2018 Visit Plan: Orthostatic [...] walker 10/17/2018 Appointment: [facility] [phone] [phone] (30 min) Complex 10/17/2018 Patient Education: Patient [...] to medications. 09/02/2018 Appointment: [facility] [phone] [phone] (15 min) Moderate 09/02/2018 Patient Education: Patient [...] surrogate. 06/30/2018 Appointment: [facility] [phone] [phone] [facility] - Annual Wellness Visit 06/30/2018 Patient Education: Patient Medication Summary Completed 06/30/2018 Appointment: Injection 06/24/2018 Patient Education: Patient Medication Summary Completed 06/24/2018 Appointment: Injection 06/13/2018 Patient Education: Patient Medication Summary Completed 06/13/2018 Visit Plan: Diabetes Mellitus - I h ave recommended for the patient to have follow [...] pain. 06/06/2018 App[facility]ment: [facility] [phone] [phone] (15 min) Moderate 06/06/2018 Patient Education: Patient [...] 2 months 04/04/2018 Appointment: Karmen Espinal WPtel: [phone] [facility] [id number] (15 min) Moderate 04/04/2018 Patient Education: Patient Medication Summary Completed 04/04/2018 Care Plan: Cbc With Differential Pending 04/04/2018 Care Plan: Testosterone repeat in 2 months Pending 04/04/2018 Appointment: Karmen Espinal WPtel: [phone] [phone] [place] (15 min) Moderate 03/25/2018 Visit Plan: Low back pain -history of kidney stone-UA negative today -increase fluids and call if pain does not resolve or if any worse. 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 01/30/2018 Appointment: Karmen Espinal WPtel: [facility] [address] (15 min) Moderate 01/30/2018 Patient Education: Patient Medication Summary Completed 01/30/2018 Appointment: Karmen Espinal WPtel: [address] [place] [address] (15 min) Moderate 01/28/2018 Appointment: Injection 01/17/2018 Patient Education: Patient Medication Summary Completed 01/17/2018 Visit Plan: Cellulitis - start oral antibiotics as directed, return to clinic as previously directed, call for acute change in symptoms, worsening redness, warmth, discharge. 01/14/2018 Appointment: Karmen Espinal WPtel: [address] [place] [address] (10 min) Simple 01/14/2018 Patient Education: Patient [...] less controlled. 01/13/2018 Appointment: Karmen Espinal WPtel: [address] [place], [place] [id number] [place] [address] (15 min) Moderate 01/13/2018 Patient Education: Patient Medication Summary Completed 01/13/2018 Referral: Hugo Villatoro HPtel:[phone] Patient's informed. Referral info ned monroy. Completed 12/04/2017 Visit Plan: Diabetes Mellitus - con trolled [...] change in blood pressure readings at home. Omgifggd-ctodtw-aenko to see Dr Villatoro Constipation-start linzess daily 11/19/2017 Appointment: Karmen Espinal WPtel[phone] (30 min) Complex 11/19/2017 Patient Education: Patient Medication Summary Completed 11/19/2017 Care Plan: Referral Order bloating, nausea SNOMED-CT : 482651023 Pending 11/19/2017 Visit Plan: Low back pain- [...] changes. 10/02/2017 Appointment: Brun[facility] Maravilla [facility]el[phone] [facility] (15 min) Moderate 10/02/2017 Patient Education: Patient [...] controlled. 07/23/2017 Appointment: [facility]el[facility] [phone] [phone] (30 min) Complex 07/23/2017 Patient Education: Patient [...] history 04/25/2017 Appointment: [facility]el[facility] [phone] [phone] (30 min) Complex 04/25/2017 Patient Education: Patient [...] readings are starting to become less controlled. Gierqe-hyqcgda-kextx labs 02/19/2017 Appointment: [facility]inal [facility]Ptel[phone] [phone] (30 min) Complex 02/19/2017 Patient Education: Patient [...] 1 month 01/21/2017 Appointment: Karmen Espinal WPtel: [phone] (30 min) Complex 01/21/2017 Patient Education: Patient Medication Summary Completed 01/21/2017 Patient Education: Smoking and Tobacco Addiction Completed 01/21/2017 Patient Education: Hypertension Completed 01/21/2017 Care Plan: Referral Order SNOMED-CT : 841134052 Pending 01/21/2017 Visit Plan: Diabetes Mellitus - hav e recommended for the patient to have follow up labs prior to the next office visit. The patient has been instructed to continue with current medications as previously directed, angelica brink with regular FSBS monitoring to assure continued [...] acute changes. 12/20/2016 Appointment: Karmen Espinal WPtel: [phone] (30 min) Complex 12/20/2016 Patient Education: Patient Medication Summary Completed 12/20/2016 Patient Education: Smoking and Tobacco Addiction Completed 12/20/2016 Patient Education: Hypertension Completed 12/20/2016 Appointment: Karmen Espinal WPtel: [phone] (30 min) Complex 09/06/2016 Visit Plan: [...] d level 08/23/2016 Appointment: Karmen Espinal WPtel: [phone] (30 min) [facility] 08/23/2016 Patient Education: Patient Medication Summary Completed [...] acute changes. 05/22/2016 Appointment: Karmen Espinal WPtel: [phone] (30 min) Complex 05/22/2016 Patient Education: Patient Medication Summary Completed 05/22/2016 Patient Education: Smoking and Tobacco Addiction Completed 05/22/2016 Care Plan: Cbc With Differential Ordered 05/22/2016 Care Plan: %Hba1C KIKI C : 28661-1 Ordered 05/22/2016 Care Plan: Tsh Ordered 05/22/2016 [...] with update 02/24/2016 Appointment: Karmen Espinal WPtel[facility] [phone] [phone] (30 min) Complex 02/24/2016 Patient Education: Patient [...] this regimen. 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 Pt is to receive appropriate treatment as an out patient, but the pt is aware that if symptoms worsen or do not improve, to call [facility] for instructions, or go to the EMERGENCY [...] POTENTIAL SIDE EFFECTS AND WORSENING OF SYMPTOMS. Syezirrg-lslqzzfa-NOIT SIMVASTATIN X 2 WEEKS AND CALL WITH [...] Care Plan: COMPLETE CBC AUTOMATED LOINC : 02982-5 Ordered 03/24/2015 Visit Plan: Diabetes Mellitus - [...] for removal. 03/07/2015 Appointment: Violeta Ash WPtel: [facility] (15 min) Moderate 03/07/2015 Patient Education: Patient [...] hearing. [facility] due to the wax [...] Care Plan: COMPLETE CBC AUTOMATED LOINC : 22904-8 Ordered 12/23/2014 Visit Plan: BPPV - Benign [...] next appt 12/09/2014 Appointment: Karmen Espinal WPtel: [phone] [place] ([place] New Patient 12/09/2014 Patient Education: Patient Medication Summary Completed 12/09/2014 Patient Education: .Amazing charts Parox ysmal positional vertigo Completed 12/09/2014 Patient Education: Smoking and Tobacco Addiction Completed 12/09/2014 Referral: Irving Hugo HPtel:[phone] [facility] [place] Referral Appointment Requested Referral: Luis [...] of if symptoms worsen-call saturday with update Symbicort 2 puffs tw ice daily . [...] patient is stable, monitor for acute changes. jardiance 10mg daily . Hypertension - well [...] if symptoms not improved on this regimen. . Esophageal Reflux - the patient has [...] and will check at next appt . Low back pain- the patient was [...] assure normal liver response to medications. . Cellulitis - start oral antibiotics as [...] readings are starting to become less controlled. Dsfueq-wlmtmzm-evvxz labs . COPD -recent pneum onia-symptoms have [...] readings are starting to become less controlled. CALL IF THE KENALOG SHOT DOES NOT [...] lesion today in the office-wound instructions provided decrease glipizide t o 5mg twice daily [...] referral to Dr. Donohue for removal. . Cerumen Impaction - The impacted cerumen [...] or if any worse. Refer to Dr Villatoro f or evaluation DX bloating, nausea Linzess 72mcg [...] change in blood pressure readings at home. Ipqpdwpb-tqhjyy-xujhc to see Dr Villatoro Constipation-start linzess daily KENALOG ANORO 1 INHALATION DAILY . COPD [...] patient is stable, monitor for acute changes. INCREASE LISINOPRIL TO 10MG TWICE DAILY RETURN [...] readings are starting to become less controlled. Symbicort 2 puffs tw ice daily . [...] assure normal liver response to medications. . Diabetes Mellitus - I have recommended [...] POTENTIAL SIDE EFFECTS AND WORSENING OF SYMPTOMS. Wwiasuus-oxdqaisw-FCSR SIMVASTATIN X 2 WEEKS AND CALL WITH [...] smoking. Insulin Dependent Diabetes- Check labs today. . Orthostatic hypote nsion -recommend patient pump legs before standing -change positions slowly- monitor blood pressures Chronic Pain Syndrome - pt has chronic pain - has been maintained on current medications, has not sought out other medications, only uses PRN pain medications as directed, and understands the consequences of over-medication. Gait instability-recommend patient use a walker STOP THE GLIPIZIDE CALL IF BLOOD SUGARS [...] are starting to become less controlled. . Medicare Exam - to day we [...] her DOPA paperwork for health care surrogate. RETURN FOR LABS GAIL SELBY CONTINUOUS GLUCOSE MONITOR CHEST XRAY . COPD - chronic problem for this patien t. We have reviewed chronic treatment strategy, symptom control, and plans for acute exacerbations. No changes today to the current treatment plan as the patient is stable, monitor for acute changes. long-term tobacco use -weight loss-order for chest xray provided DM -rx for CGM -patient is due for labs Low testosterone -check level flu/prevnar . Hypertension - well controlled - [...] use-schedule low dose CT chest-60 pack/year history RESTART SIMVASTATIN START TOUJEO AT 30 UNITS [...]
--- OUTSIDE RECORDS SUMMARY | 2020-03-29 07:30 | XMS REPORT | CCD ---
Author Author Dick Espinal Organization Violeta Ash MD, [facility] Address [address] [place] [address] Phone Care Team Providers Care Industrial Sales Engineer Name Role Phone PP Unavailable CCM Unavailable Summary Purpose Interface Exchange Insurance Providers Payer name Policy type / Coverage type Covered libertarian ID Effective Begin Date Effective End Date WPS Medicare Part B Medicare Part B [id number] Unknown Unknown Bankers [place] Medicare Part B [id number] Unknown Unknown Family history Father Diagnosis Age At Onset Cancer Unknown Mother Diagnosis Age At Onset Cancer Unknown Social History Social History Element Codes Description Effective Dates Number of cigarettes/day Unknown 20 (One Pack) 03/03/2019 Marital status Unknown M arried 12/09/2014 Employment Unknown Retir ed 12/09/[address]: 41416698 Currently smokes tobacco 12/09/2014 Number of years using tobacco Unknown > 50 12/09/[address]: 475096906 Never drinks alcohol 12/09/2014 Allergies, Adverse Reactions, [...] cypiona te 200 mg/mL intramuscular oil RxNorm: 8965685 Milliliter(s) IM 03/31/2019 03/31/2019 In active hydrocodone 5 mg-linh taminophen 325 mg tablet RxNorm: 210480 1 Tablet(s) PO Q6-8H as needed 03/17/2019 04/10/2019 Active testosterone cypiona te 200 mg/mL intramuscular oil RxNorm: 4139879 Milliliter(s) IM 03/17/2019 03/17/2019 In active Toujeo SoloStar U-30 0 Insulin 300 unit/mL (1.5 mL) subcutaneous pen RxNorm: 8642805 35 Unit(s) SQ QHS 03/05/2019 07/02/2019 Active Dosage change! testosterone cypiona te 200 mg/mL intramuscular oil RxNorm: 1852960 1/2 Milliliter(s) IM 03/04/2019 03/04/2019 Inactive Toujeo SoloStar U-30 0 Insulin 300 unit/mL (1.5 mL) subcutaneous pen RxNorm: 9967476 30 Unit(s) SQ QHS 03/03/2019 03/04/2019 Inactive Xanax 0.5 mg tablet RxNorm: 649773 Tablet(s) as needed TAKE ONE TABLET BY M OUTH THREE TIMES A DAY 02/19/2019 04/19/2019 Active Xanax 0.5 mg tablet RxNorm: 679462 Tablet(s) TAKE ONE TABLET BY MOUTH THREE TIMES A DAY 02/19/2019 02/18/2019 Inactive hydrocodone 5 mg-linh taminophen 325 mg tablet RxNorm: 054183 1 Tablet(s) PO Q6-8H as needed 02/16/2019 03/12/2019 Inactive testosterone cypiona te 200 mg/mL intramuscular oil RxNorm: 0404829 Milliliter(s) IM 02/16/2019 02/16/2019 In active Protonix 40 mg table t,delayed release RxNorm: 218809 TAKE 1 TABLET BY MOUT H DAILY 02/02/2019 01/27/2020 Ac tive - Ref: [id number] simvastatin 40 mg ta blet RxNorm: 129152 TAKE 1 TABLET BY MOUT H DAILY AT BEDTIME 02/02/2019 01/27/2020 Ac tive - Ref: [id number] testosterone cypiona te 200 mg/mL intramuscular oil RxNorm: 0410648 Milliliter(s) IM 01/30/2019 01/30/2019 In active testosterone cypiona te 200 mg/mL intramuscular oil RxNorm: 6820002 1/2 Milliliter(s) IM [id number] 01/16/2019 05/15/2019 Active testosterone cypiona te 200 mg/mL intramuscular oil RxNorm: 8779464 Milliliter(s) IM 01/16/2019 01/16/2019 In active hydrocodone 5 mg-linh taminophen 325 mg tablet RxNorm: 631219 1 Tablet(s) PO Q6-8H as needed 01/14/2019 02/07/2019 Inactive testosterone cypiona te 200 mg/mL intramuscular oil RxNorm: 9819350 Milliliter(s) IM 01/01/2019 01/01/2019 In active Xanax 0.5 mg tablet RxNorm: 913063 1 Tablet(s) PO TID 12/18/2018 02/14/2019 Inactive testosterone cypiona te 200 mg/mL intramuscular oil RxNorm: 0254454 Milliliter(s) IM 12/17/2018 12/17/2018 In active hydrocodone 5 mg-linh taminophen 325 mg tablet RxNorm: 584536 1 Tablet(s) PO Q6-8H as needed 12/15/2018 01/08/2019 Inactive testosterone cypiona te 200 mg/mL intramuscular oil RxNorm: 3324104 Milliliter(s) IM 12/02/2018 12/02/2018 In active testosterone cypiona te 200 mg/mL intramuscular oil RxNorm: 5704924 Milliliter(s) IM 11/18/2018 11/18/2018 In active hydrocodone 5 mg-linh taminophen 325 mg tablet RxNorm: 147935 1 Tablet(s) PO Q6-8H as needed 11/13/2018 12/07/2018 Inactive testosterone cypiona te 200 mg/mL intramuscular oil RxNorm: 9119793 1/2 Milliliter(s) IM E1evsms 11/04/2018 01/15/2019 Inactive testosterone cypiona te 200 mg/mL intramuscular oil RxNorm: 1783704 Milliliter(s) IM 11/04/2018 11/04/2018 In active nicotine 21 mg/24 hr daily transdermal patch RxNorm: 881154 1 TD daily 10/31/2018 10/30/2018 In active nicotine 21 mg/24 hr daily transdermal patch RxNorm: 859257 1 TD daily 10/31/2018 11/29/2018 In active meclizine 25 mg tablet RxNorm: 322858 1 Tablet(s) PO Q6 PRN TAKE ONE TABLET BY MOUTH EVERY 6 HOURS NEEDED 10/17/2018 01/14/2019 Inactive hydrocodone 5 mg-linh taminophen 325 mg tablet RxNorm: 515734 1 Tablet(s) PO Q6-8H as needed 10/17/2018 11/10/2018 Inactive metformin 500 mg tablet RxNorm: 526919 Tablet(s) TAKE 1 TABLET BY MOUTH DAILY 10/15/2018 10/09/2019 Ac tive lisinopril 10 mg tablet RxNorm: 408291 TAKE 1 TABLET BY MOUTH TWO TIMES DAILY 10/15/2018 10/09/2019 Ac tive - First Attempt Ref: [id number] testosterone cypiona te 200 mg/mL intramuscular oil RxNorm: 9695684 Milliliter(s) IM 10/14/2018 10/14/2018 In active Xanax 0.5 mg tablet RxNorm: 727972 1 Tablet(s) PO TID 10/03/2018 11/30/2018 Inactive testosterone cypiona te 200 mg/mL intramuscular oil RxNorm: 9778245 1/2 Milliliter(s) IM weekly 10/03/2018 11/03/2018 Inactive testosterone cypiona te 200 mg/mL intramuscular oil RxNorm: 7821534 Milliliter(s) IM 10/03/2018 10/03/2018 In active testosterone cypiona te 200 mg/mL intramuscular oil RxNorm: 0264406 Milliliter(s) IM 09/23/2018 09/23/2018 In active hydrocodone 5 mg-linh taminophen 325 mg tablet RxNorm: 045773 1 Tablet(s) PO Q6-8H as needed 09/22/2018 10/16/2018 Inactive testosterone cypiona te 200 mg/mL intramuscular oil RxNorm: 3678415 1/2 Milliliter(s) IM 09/02/2018 09/02/2018 Inactive testosterone enantha te 200 mg/mL intramuscular oil RxNorm: 465481 Milliliter(s) IM 08/21/2018 08/21/2018 In active hydrocodone 5 mg-linh taminophen 325 mg tablet RxNorm: 091676 1 Tablet(s) PO Q6-8H as needed 08/21/2018 09/14/2018 Inactive testosterone cypiona te 200 mg/mL intramuscular oil RxNorm: 3627285 Milliliter(s) IM 08/08/2018 08/08/2018 In active testosterone cypiona te 200 mg/mL intramuscular oil RxNorm: 1781112 1/2 Milliliter(s) IM 07/28/2018 07/28/2018 Inactive hydrocodone 5 mg-linh taminophen 325 mg tablet RxNorm: 007259 1 Tablet(s) PO Q6-8H as needed 07/21/2018 08/14/2018 Inactive testosterone cypiona te 200 mg/mL intramuscular oil RxNorm: 902951 Milliliter(s) IM 07/16/2018 07/16/2018 In active testosterone cypiona te 200 mg/mL intramuscular oil RxNorm: 963986 Milliliter(s) IM 07/02/2018 07/02/2018 In active Xanax 0.5 mg tablet RxNorm: 437369 1 Tablet(s) PO TID 06/27/2018 08/24/2018 Inactive testosterone cypiona te 200 mg/mL intramuscular oil RxNorm: 712679 Milliliter(s) IM 06/24/2018 06/24/2018 In active hydrocodone 5 mg-linh taminophen 325 mg tablet RxNorm: 323051 1 Tablet(s) PO Q6-8H as needed 06/23/2018 07/17/2018 Inactive testosterone cypiona te 200 mg/mL intramuscular oil RxNorm: 756564 Milliliter(s) IM 06/13/2018 06/13/2018 In active testosterone cypiona te 200 mg/mL intramuscular oil RxNorm: 389956 Milliliter(s) IM 06/05/2018 06/05/2018 In active testosterone cypiona te 200 mg/mL intramuscular oil RxNorm: 2272503 1/2 Milliliter(s) IM weekly 05/30/2018 09/26/2018 Inactive testosterone cypiona te 200 mg/mL intramuscular oil RxNorm: 913229 Milliliter(s) IM 05/30/2018 05/30/2018 In active testosterone cypiona te 200 mg/mL intramuscular oil RxNorm: 897650 Milliliter(s) IM 05/22/2018 05/22/2018 In active hydrocodone 5 mg-linh taminophen 325 mg tablet RxNorm: 985297 1 Tablet(s) PO Q6-8H as needed 05/20/2018 06/13/2018 Inactive testosterone cypiona te 200 mg/mL intramuscular oil RxNorm: 880579 1/2 Milliliter(s) IM 05/12/2018 05/12/2018 Inactive testosterone cypiona te 200 mg/mL intramuscular oil RxNorm: 768084 Milliliter(s) IM 05/02/2018 05/02/2018 In active testosterone cypiona te 200 mg/mL intramuscular oil RxNorm: 747623 1/2 Milliliter(s) IM weekly 04/24/2018 05/29/2018 Inactive testosterone cypiona te 200 mg/mL intramuscular oil RxNorm: 470589 0.5 Milliliter(s) IM 04/24/2018 04/24/2018 Inactive hydrocodone 5 mg-linh taminophen 325 mg tablet RxNorm: 599775 1 Tablet(s) PO Q6-8H as needed 04/22/2018 05/16/2018 Inactive testosterone cypiona te 200 mg/mL intramuscular oil RxNorm: 492381 1/2 Milliliter(s) IM 04/17/2018 04/17/2018 Inactive testosterone cypiona te 200 mg/mL intramuscular oil RxNorm: 348768 1/2 Milliliter(s) IM weekly 04/16/2018 04/23/2018 Inactive Jardiance 10 mg tablet RxNorm: 4174208 1 Tablet(s) PO daily 04/04/2018 12/29/2018 Inactive testosterone cypiona te 200 mg/mL intramuscular oil RxNorm: 245794 1 Milliliter(s) IM monthly 04/04/2018 04/15/2018 Inactive Protonix 40 mg table t,delayed release RxNorm: 321624 1 Tablet(s) PO daily TAKE 1 TABLET BY MOUTH DAILY 04/04/2018 02/01/2019 Inactive - Ref: [id number] hydrocodone 5 mg-linh taminophen 325 mg tablet RxNorm: 079782 1 Tablet(s) PO Q6-8H as needed 03/19/2018 04/12/2018 Inactive Flomax 0.4 mg capsule RxNorm: 146169 1 Capsule(s) PO daily 03/10/2018 03/04/2019 Inactive Urecholine 25 mg tablet RxNorm: 644847 1 Tablet(s) PO BID 03/10/2018 07/07/2018 Inactive ketorolac 60 mg/2 mL intramuscular solution RxNorm: 3816785 Milliliter(s) IM 03/07/2018 03/07/2018 In active metformin 500 mg tablet RxNorm: 305932 Tablet(s) TAKE 1 TABLET BY MOUTH DAILY 02/20/2018 02/13/2019 In active 1 q am and 1/2 tab q pm hydrocodone 5 mg-linh taminophen 325 mg tablet RxNorm: 106997 1 Tablet(s) PO Q6-8H as needed 02/20/2018 03/16/2018 Inactive Kenalog 40 mg/mL bartolome pension for injection RxNorm: 8667417 1.5 Milliliter(s) In j 01/30/2018 01/30/2018 In active hydrocodone 5 mg-linh taminophen 325 mg tablet RxNorm: 222470 1 Tablet(s) PO Q6-8H as needed 01/23/2018 02/16/2018 Inactive Urecholine 25 mg tablet RxNorm: 397933 1 Tablet(s) PO BID 01/22/2018 03/09/2018 Inactive Flomax 0.4 mg capsule RxNorm: 705157 1 Capsule(s) PO daily 01/22/2018 03/09/2018 Inactive Flomax 0.4 mg capsule RxNorm: 132365 1 Capsule(s) PO daily 01/22/2018 01/21/2018 Inactive Urecholine 25 mg tablet RxNorm: 123352 1 Tablet(s) PO BID 01/22/2018 01/21/2018 Inactive testosterone cypiona te 200 mg/mL intramuscular oil RxNorm: 893829 Milliliter(s) IM 01/17/2018 01/17/2018 In active testosterone cypiona te 200 mg/mL intramuscular oil RxNorm: 881726 1 Milliliter(s) IM monthly 01/17/2018 04/03/2018 Inactive doxycycline hyclate 100 mg tablet RxNorm: 741827 1 Tablet(s) PO BID 01/14/2018 01/23/2018 Inactive lisinopril 10 mg tablet RxNorm: 128610 TAKE 1 TABLET BY MOUTH TWO TIMES DAILY 01/14/2018 10/14/2018 In active - First Attempt Ref: [id number] nystatin 100,000 uni t/mL oral suspension RxNorm: 604957 4 Milliliter(s) PO QI D Swish and swallow 01/08/2018 01/07/2018 Inactive nystatin 100,000 uni t/mL oral suspension RxNorm: 479611 4 Milliliter(s) PO QI D Swish and swallow 01/08/2018 01/12/2018 Inactive Xanax 0.5 mg tablet RxNorm: 914664 1 Tablet(s) PO TID 01/08/2018 12/23/2018 Inactive simvastatin 40 mg ta blet RxNorm: 903286 TAKE 1 TABLET BY MOUT H DAILY AT BEDTIME 12/30/2017 12/24/2018 In active - First Attempt Ref: [id number] metformin 500 mg tablet RxNorm: 019365 TAKE 1 TABLET BY MOUTH DAILY 12/30/2017 02/19/2018 Inactive - First Attempt Ref: [id number] hydrocodone 5 mg-linh taminophen 325 mg tablet RxNorm: 059467 1 Tablet(s) PO Q6-8H as needed 12/25/2017 01/18/2018 Inactive Protonix 40 mg table t,delayed release RxNorm: 451068 Tablet(s) TAKE 1 TABL ET BY MOUTH DAILY 11/20/2017 04/03/2018 Inactive - Ref: [id number] Linzess 72 mcg capsule RxNorm: 4561943 1 Capsule(s) PO daily 11/19/2017 No Stop Date Active hydrocodone 5 mg-linh taminophen 325 mg tablet RxNorm: 564038 1 Tablet(s) PO Q6-8H as needed 11/19/2017 12/13/2017 Inactive hydrocodone 5 mg-linh taminophen 325 mg tablet RxNorm: 427456 1 Tablet(s) PO Q6-8H as needed 10/28/2017 11/18/2017 Inactive Xanax 0.5 mg tablet RxNorm: 833782 1 Tablet(s) PO TID 10/25/2017 12/22/2017 Inactive Xanax 0.5 mg tablet RxNorm: 698362 TAKE ONE TABLET BY MOUTH THREE TIMES A D AY 10/24/2017 12/01/2018 In active hydrocodone 5 mg-linh taminophen 325 mg tablet RxNorm: 113454 1 Tablet(s) PO Q6-8H as needed 09/30/2017 10/24/2017 Inactive Protonix 40 mg table t,delayed release RxNorm: 625199 TAKE 1 TABLET BY MOUT H DAILY 09/16/2017 11/19/2017 In active - Ref: [id number] Tolaytonanuj SoloStar 300 unit/mL (1.5 mL) subcutaneous insulin pen RxNorm: 9097465 35 Unit(s) SQ QHS 08/30/2017 03/02/2019 Inactive dosage increase hydrocodone 5 mg-linh taminophen 325 mg tablet RxNorm: 011260 1 Tablet(s) PO Q6-8H as needed 08/28/2017 09/29/2017 Inactive hydrocodone 5 mg-linh taminophen 325 mg tablet RxNorm: 570839 1 Tablet(s) PO Q6-8H as needed 07/23/2017 08/24/2017 Inactive lisinopril 10 mg tablet RxNorm: 775176 1 Tablet(s) PO BID Take 1 tablet by mout h daily 07/23/2017 01/13/2018 Inactive hydrocodone 5 mg-linh taminophen 325 mg tablet RxNorm: 925437 1 Tablet(s) PO Q6-8H as needed 06/27/2017 07/22/2017 Inactive Xanax 0.5 mg tablet RxNorm: 359311 1 Tablet(s) PO TID 06/18/2017 10/25/2017 Inactive hydrocodone 5 mg-linh taminophen 325 mg tablet RxNorm: 647997 1 Tablet(s) PO Q6-8H as needed 05/27/2017 06/26/2017 Inactive Levaquin 500 mg tablet RxNorm: 833574 1 Tablet(s) PO daily 05/24/2017 05/23/2017 Inactive Levaquin 500 mg tablet RxNorm: 015793 1 Tablet(s) PO daily 05/24/2017 05/30/2017 Inactive Protonix 40 mg table t,delayed release RxNorm: 385219 Take 1 tablet by mout h daily 04/29/2017 09/15/2017 In active - Ref: [id number] hydrocodone 5 mg-linh taminophen 325 mg tablet RxNorm: 901156 1 Tablet(s) PO Q6-8H as needed 04/25/2017 05/26/2017 Inactive metformin 500 mg tablet RxNorm: 166566 Take 1 tablet by mouth daily 04/08/2017 12/29/2017 Inactive - First Attempt Ref: [id number] hydrocodone 5 mg-linh taminophen 325 mg tablet RxNorm: 052331 1 Tablet(s) PO Q6-8H as needed 03/27/2017 04/24/2017 Inactive hydrocodone 5 mg-linh taminophen 325 mg tablet RxNorm: 286965 1 Tablet(s) PO Q6-8H as needed 02/25/2017 03/26/2017 Inactive Protonix 40 mg table t,delayed release RxNorm: 156360 Tablet(s) Take 1 tabl et by mouth BID 02/25/2017 04/28/2017 Inactive Protonix 40 mg table t,delayed release RxNorm: 904886 Tablet(s) Take 1 tabl et by mouth BID 02/19/2017 02/18/2017 Inactive Protonix 40 mg table t,delayed release RxNorm: 120886 Tablet(s) Take 1 tabl et by mouth BID 02/19/2017 02/24/2017 Inactive lisinopril 10 mg tablet RxNorm: 227992 Take 1 tablet by mouth daily 01/29/2017 07/22/2017 Inactive - First Attempt Ref: [id number] hydrocodone 5 mg-linh taminophen 325 mg tablet RxNorm: 136326 1 Tablet(s) PO Q6-8H as needed 01/25/2017 02/24/2017 Inactive simvastatin 40 mg ta blet RxNorm: 036499 Tablet(s) Take 1 tabl et by mouth daily at bedtime 01/03/2017 12/28/2017 Inactive lisinopril 10 mg tablet RxNorm: 873068 Tablet(s) Take 1 tablet by mouth daily 01/03/2017 01/28/2017 In active Protonix 40 mg table t,delayed release RxNorm: 202628 Tablet(s) Take 1 tabl et by mouth daily 12/28/2016 02/18/2017 Inactive hydrocodone 5 mg-linh taminophen 325 mg tablet RxNorm: 225264 1 Tablet(s) PO Q6-8H as needed 12/26/2016 01/24/2017 Inactive Xanax 0.5 mg tablet RxNorm: 449863 1 Tablet(s) PO TID 12/12/2016 03/11/2017 Inactive simvastatin 40 mg ta blet RxNorm: 261423 Tablet(s) Take 1 tabl et by mouth daily at bedtime 11/30/2016 01/02/2017 Inactive simvastatin 40 mg ta blet RxNorm: 909900 Take 1 tablet by mout h daily at bedtime 11/29/2016 11/29/2016 In active - First Attempt Ref: [id number] Protonix 40 mg table t,delayed release RxNorm: 815398 Take 1 tablet by mout h daily 11/27/2016 12/27/2016 In active - First Attempt Ref: [id number] hydrocodone 5 mg-linh taminophen 325 mg tablet RxNorm: 997891 1 Tablet(s) PO Q6-8H as needed 11/26/2016 12/25/2016 Inactive hydrocodone 5 mg-linh taminophen 325 mg tablet RxNorm: 381268 1 Tablet(s) PO Q8 as needed 10/24/2016 11/25/2016 Inactive Xanax 0.5 mg tablet RxNorm: 324951 1 Tablet(s) PO TID 10/09/2016 12/25/2016 Inactive hydrocodone 5 mg-linh taminophen 325 mg tablet RxNorm: 110801 1 Tablet(s) PO Q8 as needed 09/27/2016 10/23/2016 Inactive lisinopril 10 mg tablet RxNorm: 922787 Take 1 tablet by mouth daily 09/25/2016 01/02/2017 Inactive - First Attempt Ref: [id number] Vitamin D2 50,000 un it capsule RxNorm: 934867 1 Capsule(s) PO QW 09/06/2016 12/01/2018 Inactive hydrocodone 5 mg-linh taminophen 325 mg tablet RxNorm: 395450 1 Tablet(s) PO Q8 as needed 08/28/2016 09/26/2016 Inactive Toujeo SoloStar 300 unit/mL (1.5 mL) subcutaneous insulin pen RxNorm: 8840733 25 Unit(s) SQ QHS 08/23/2016 08/29/2017 Inactive dosage increase hydrocodone 5 mg-linh taminophen 325 mg tablet RxNorm: 303668 1 Tablet(s) PO Q8 as needed 07/26/2016 08/27/2016 Inactive Protonix 40 mg table t,delayed release RxNorm: 380771 Take 1 tablet by mout h daily 07/24/2016 11/26/2016 In active - First Attempt Ref: [id number] hydrocodone 5 mg-linh taminophen 325 mg tablet RxNorm: 383684 1 Tablet(s) PO Q8 as needed 06/19/2016 07/21/2016 Inactive Toujeo SoloStar 300 unit/mL (1.5 mL) subcutaneous insulin pen RxNorm: 7737366 32 Unit(s) SQ QHS 05/30/2016 08/22/2016 Inactive dosage increase hydrocodone 5 mg-linh taminophen 325 mg tablet RxNorm: 415075 1 Tablet(s) PO Q8 as needed 05/22/2016 06/18/2016 Inactive hydrocodone 5 mg-linh taminophen 325 mg tablet RxNorm: 938913 1 Tablet(s) PO Q8 as needed 04/18/2016 05/17/2016 Inactive Protonix 40 mg table t,delayed release RxNorm: 028986 Take 1 tablet by mout h daily 04/05/2016 07/03/2016 In active - Ref: [id number] metformin 500 mg tablet RxNorm: 955426 Take 1 tablet by mouth daily 04/04/2016 07/02/2016 Inactive - Ref: [id number] Xanax 0.5 mg tablet RxNorm: 198494 1 Tablet(s) PO TID 03/30/2016 09/25/2016 Inactive Xanax 0.5 mg tablet RxNorm: 967018 1 Tablet(s) PO TID 03/23/2016 12/25/2016 Inactive hydrocodone 5 mg-linh taminophen 325 mg tablet RxNorm: 575126 1 Tablet(s) PO Q8 as needed 03/06/2016 04/04/2016 Inactive Cipro 500 mg tablet RxNorm: 900695 1 Tablet(s) PO BID 02/24/2016 03/04/2016 Inactive Miralax 17 gram oral powder packet RxNorm: 775838 1 packet PO every oth er day 01/27/2016 No Stop Date Active hydrocodone 5 mg-linh taminophen 325 mg tablet RxNorm: 787115 1 Tablet(s) PO Q8 as needed 01/27/2016 02/25/2016 Inactive lisinopril 10 mg tablet RxNorm: 407410 1 Tablet(s) PO daily 01/12/2016 09/24/2016 Inactive simvastatin 40 mg ta blet RxNorm: 393826 1 Tablet(s) PO QHS 01/12/2016 11/28/2016 Inactive simvastatin 40 mg ta blet RxNorm: 475880 1 Tablet(s) PO QHS 01/11/2016 01/11/2016 Inactive lisinopril 10 mg tablet RxNorm: 272459 1 Tablet(s) PO daily 01/06/2016 01/11/2016 Inactive simvastatin 40 mg ta blet RxNorm: 144759 1 Tablet(s) PO daily 12/28/2015 01/10/2016 Inactive hydrocodone 5 mg-linh taminophen 325 mg tablet RxNorm: 154975 1 Tablet(s) PO Q8 as needed 12/27/2015 01/26/2016 Inactive Xanax 0.5 mg tablet RxNorm: 040593 1 Tablet(s) PO TID 11/30/2015 03/29/2016 Inactive Toujeo SoloStar 300 unit/mL (1.5 mL) subcutaneous insulin pen RxNorm: 5489791 30 Unit(s) SQ QHS 11/25/2015 05/29/2016 Inactive dosage increase meclizine 25 mg tablet RxNorm: 301979 1 Tablet(s) PO Q6 PRN TAKE ONE TABLET BY MOUTH EVERY 6 HOURS NEEDED 11/25/2015 02/22/2016 Inactive omeprazole 20 mg cap jacquelyn,delayed release RxNorm: 309289 1 Capsule(s) PO daily 10/06/2015 01/26/2016 In active Toujeo SoloStar 300 unit/mL (1.5 mL) subcutaneous insulin pen RxNorm: 4018179 35 Unit(s) SQ QHS 08/02/2015 11/24/2015 Inactive dosage increase Vitamin D2 50,000 un it capsule RxNorm: 980997 1 Capsule(s) PO QW 08/02/2015 09/05/2016 Inactive hydrocodone 5 mg-linh taminophen 325 mg tablet RxNorm: 961335 1 Tablet(s) PO Q8 as needed 07/11/2015 12/26/2015 Inactive Xanax 0.5 mg tablet RxNorm: 486353 1 Tablet(s) PO TID 06/30/2015 06/29/2015 Inactive Xanax 0.5 mg tablet RxNorm: 982242 1 Tablet(s) PO TID 06/30/2015 12/25/2015 Inactive hydrocodone 5 mg-linh taminophen 325 mg tablet RxNorm: 255246 1 Tablet(s) PO Q8 as needed 05/06/2015 07/10/2015 Inactive Symbicort 160 mcg-4. 5 mcg/actuation HFA aerosol inhaler RxNorm: 2093787 INH 04/25/2015 No Stop Date Active Levemir FlexTouch 10 0 unit/mL (3 mL) subcutaneous insulin pen RxNorm: 164127 30 Unit(s) SQ QHS 04/25/2015 11/24/2015 Inactive prednisone 20 mg tablet RxNorm: 587620 1 Tablet(s) PO BID 04/25/2015 04/29/2015 Inactive metformin 500 mg tablet RxNorm: 727155 1 Tablet(s) PO daily 04/25/2015 04/03/2016 Inactive amoxicillin 500 mg c apsule RxNorm: 980998 1 Capsule(s) PO TID 04/14/2015 04/13/2015 Inactive amoxicillin 500 mg c apsule RxNorm: 405644 1 Capsule(s) PO TID a nd recommend probiotic tid (otc) 04/14/2015 04/20/2015 Inactive Kenalog 40 mg/mL bartolome pension for injection RxNorm: 8293495 Milliliter(s) Inj 04/12/2015 04/12/2015 In active hydrocodone 5 mg-linh taminophen 325 mg tablet RxNorm: 235101 1 Tablet(s) PO Q8 as needed 03/30/2015 05/05/2015 Inactive Lantus 100 unit/mL s ubcutaneous solution RxNorm: 583867 25 Unit(s) SQ QPM 03/24/2015 04/25/2015 In active meclizine 25 mg tablet RxNorm: 538256 Tablet(s) TAKE ONE TABLET BY MOUTH EVERY 6 HOURS NEEDED 03/08/2015 04/06/2015 Inactive meclizine 25 mg tablet RxNorm: 546770 TAKE ONE TABLET BY MOUTH EVERY 6 HOURS A S NEEDED 02/25/2015 03/03/2015 Inactive Lantus 100 unit/mL s ubcutaneous solution RxNorm: 150924 20 Unit(s) SQ QPM 02/23/2015 03/23/2015 In active Lantus 100 unit/mL s ubcutaneous solution RxNorm: 228192 25 Unit(s) SQ QPM 02/23/2015 02/22/2015 In active hydrocodone 5 mg-linh taminophen 325 mg tablet RxNorm: 570393 1 Tablet(s) PO Q8 as needed 02/17/2015 03/29/2015 Inactive Xanax 0.5 mg tablet RxNorm: 445431 1 Tablet(s) PO TID 02/03/2015 06/29/2015 Inactive Lantus 100 unit/mL s ubcutaneous solution RxNorm: 369667 20 Unit(s) SQ QPM 12/29/2014 02/22/2015 In active Phenergan 12.5 mg re ctal suppository RxNorm: 620087 1 Suppository RTL Q6 PRN 12/23/2014 No Stop Date Active nausea Kenalog 40 mg/mL bartolome pension for injection RxNorm: 1338161 Milliliter(s) Inj 12/23/2014 12/23/2014 In active prednisone 20 mg tablet RxNorm: 806758 2 Tablet(s) PO daily 12/13/2014 12/17/2014 Inactive prednisone 20 mg tablet RxNorm: 711244 2 Tablet(s) PO daily 12/13/2014 12/12/2014 Inactive meclizine 25 mg tablet RxNorm: 381248 1 Tablet(s) PO Q6 PRN 12/09/2014 02/24/2015 Inactive hydrocodone 5 mg-linh taminophen 325 mg tablet RxNorm: 232213 1 Tablet(s) PO Q8 as needed 12/09/2014 02/16/2015 Inactive Vitamin B-12 1,000 m cg/mL oral drops RxNorm: 8815392 1 Milliliter(s) PO d aily No Start Date Active Alphagan P 0.1 % eye drops RxNorm: 167545 1 Drop(s) OPH BID No Start Date Active aspirin 325 mg table t,delayed release RxNorm: 369680 1 Tablet(s) PO daily No Start Date Active Tricor 145 mg tablet RxNorm: 694399 1 Tablet(s) PO daily No Start Date Active vitamin [id number] B1 oral liquid RxNorm: 1,000 Microgram(s) PO daily No Start Date Active atenolol 50 mg tablet RxNorm: 718071 1 Tablet(s) PO daily No Start Date Active Protonix 40 mg table t,delayed release RxNorm: 350159 1 Tablet(s) PO daily No Start Date 04/04/2016 Inactive glipizide 10 mg tablet RxNorm: 503493 1 Tablet(s) PO BID No Start Date 03/22/2015 Inactive Lantus 100 unit/mL s ubcutaneous solution RxNorm: 322997 15 Unit(s) SQ QPM No Start Date 12/28/2014 Inactive lisinopril 10 mg tablet RxNorm: 291426 1 Tablet(s) PO daily No Start Date 01/05/2016 Inactive Vitamin D2 50,000 un it capsule RxNorm: 284316 1 Capsule(s) PO QW No Start Date 08/01/2015 Inactive Toujeo SoloStar 300 unit/mL (1.5 mL) subcutaneous insulin pen RxNorm: 5335280 30 Unit(s) SQ QHS No Start Date 08/01/2015 Inactive simvastatin 40 mg ta blet RxNorm: 860039 1 Tablet(s) PO daily No Start Date 12/27/2015 Inactive testosterone cypiona te 200 mg/mL intramuscular oil RxNorm: 364296 1 Milliliter(s) IM monthly No Start Date 01/16/2018 Inactive hydrocodone 5 mg-linh taminophen 325 mg tablet RxNorm: 157080 1 Tablet(s) PO Q8 as needed No Start Date 12/08/2014 Inactive metformin 500 mg tablet RxNorm: 366326 1 Tablet(s) PO daily No Start Date 04/24/2015 Inactive omeprazole 20 mg cap jacquelyn,delayed release RxNorm: 012685 1 Capsule(s) PO daily No Start Date 10/05/2015 Inactive Flomax 0.4 mg capsule RxNorm: 798923 1 Capsule(s) PO daily No Start Date 03/23/2015 Inactive Medication Administered Medication Codes Instruc tions Start Date Status testosterone cypionate 200 mg/mL intramuscular oil RxNorm: 6092886 [facility] 03/31/2019 Active testosterone cypionate 200 mg/mL intramuscular oil RxNorm: 0905264 [facility] 03/17/2019 No longer Active testosterone cypionate 200 mg/mL intramuscular oil RxNorm: 2929155 1/2[facility] 03/04/2019 No longer Active testosterone cypionate 200 mg/mL intramuscular oil RxNorm: 0637212 [facility] 02/16/2019 No longer Active testosterone cypionate 200 mg/mL intramuscular oil RxNorm: 6660309 [facility] 01/30/2019 No longer Active testosterone cypionate 200 mg/mL intramuscular oil RxNorm: 3428850 [facility] 01/16/2019 No longer Active testosterone cypionate 200 mg/mL intramuscular oil RxNorm: 9519622 [facility] 01/01/2019 No longer Active testosterone cypionate 200 mg/mL intramuscular oil RxNorm: 2886543 [facility] 12/17/2018 No longer Active testosterone cypionate 200 mg/mL intramuscular oil RxNorm: 3537729 [facility] 12/02/2018 No longer Active testosterone cypionate 200 mg/mL intramuscular oil RxNorm: 1482945 [facility] 11/18/2018 No longer Active testosterone cypionate 200 mg/mL intramuscular oil RxNorm: 4161074 [facility] 11/04/2018 No longer Active testosterone cypionate 200 mg/mL intramuscular oil RxNorm: 9188287 [facility] 10/14/2018 No longer Active testosterone cypionate 200 mg/mL intramuscular oil RxNorm: 8519400 [facility] 10/03/2018 No longer Active testosterone cypionate 200 mg/mL intramuscular oil RxNorm: 5331943 [facility] 09/23/2018 No longer Active testosterone cypionate 200 mg/mL intramuscular oil RxNorm: 0080688 /2[facility] 09/02/2018 No longer Active testosterone enanthate 200 mg/mL intramuscular oil RxNorm: 627884 [facility] 08/21/2018 No longer Active testosterone cypionate 200 mg/mL intramuscular oil RxNorm: 3609879 [facility] 08/08/2018 No longer Active testosterone cypionate 200 mg/mL intramuscular oil RxNorm: 4765590 /2[facility] 07/28/2018 No longer Active testosterone cypionate 200 mg/mL intramuscular oil RxNorm: 113407 [facility] 07/16/2018 No longer Active testosterone cypionate 200 mg/mL intramuscular oil RxNorm: 758465 [facility] 07/02/2018 No longer Active testosterone cypionate 200 mg/mL intramuscular oil RxNorm: 923105 [facility] 06/24/2018 No longer Active testosterone cypionate 200 mg/mL intramuscular oil RxNorm: 705694 [facility] 06/13/2018 No longer Active testosterone cypionate 200 mg/mL intramuscular oil RxNorm: 466392 [facility] 06/05/2018 No longer Active testosterone cypionate 200 mg/mL intramuscular oil RxNorm: 421953 [facility] 05/30/2018 No longer Active testosterone cypionate 200 mg/mL intramuscular oil RxNorm: 682423 [facility] 05/22/2018 No longer Active testosterone cypionate 200 mg/mL intramuscular oil RxNorm: 352372 /2[facility] 05/12/2018 No longer Active testosterone cypionate 200 mg/mL intramuscular oil RxNorm: 279988 [facility] 05/02/2018 No longer Active testosterone cypionate 200 mg/mL intramuscular oil RxNorm: 955693 0.5[facility] 04/24/2018 No longer Active testosterone cypionate 200 mg/mL intramuscular oil RxNorm: 612987 1/2[facility] 04/17/2018 No longer Active ketorolac 60 mg/2 mL intramuscular solution RxNorm: 1975866 [facility] 03/07/2018 No longer Active Kenalog 40 mg/mL suspension for injection RxNorm: 4328804 1.5[facility] 01/30/2018 No longer Active testosterone cypionate 200 mg/mL intramuscular oil RxNorm: 304346 [facility] 01/17/2018 No longer Active Kenalog 40 mg/mL suspension for injection RxNorm: 4731252 [facility] 04/12/2015 No longer Active Kenalog 40 mg/mL suspension for injection RxNorm: 7050450 [facility] 12/23/2014 No longer Active Immunizations Vaccine [...] Code Item Item Code Result Date B12 [id number] B12 432.00 pg/ml 03/05/2019 %Hba1C Wtx227 % HbA1c 00518-2 7.9 % 03/04/2019 %Hba1C Rzc650 Gluc Ave 180 mg/dL 03/04/2019 Testosterone Dii381 Testo 142.2 ng/dL 03/04/2019 Cbc With Differential [...] 33.6 pg 03/04/2019 Cbc With Differential Ord2 [place]% 6.9 % 03/04/2019 Cbc With Differential Ord2 [...] 2.56 K/ul 03/04/2019 Cbc With Differential Ord2 [place] ABS# 0.5 K/ul 03/04/2019 Cbc With Differential Ord2 Eos ABS# 0.4 K/ul 03/04/2019 Cbc With Differential Ord2 Baso ABS# 0.0 K/ul 03/04/2019 Lipid Ord30 CHOL 114 mg/dL 03/04/2019 Lipid Ord30 HDL 25.0 mg/dl 03/04/2019 Lipid Ord30 TRIG 119 mg/dL 03/04/2019 Lipid Ord30 LDL 65 mg/dL 03/04/2019 Lipid Ord30 C/HDL 4.6 Ratio 03/04/2019 Tsh Ord6 TSH (3rd IS) 3.85 uIU/mL 03/04/2019 Comp Metabolic Gzj148 NA 142 mEq/L 03/04/2019 Comp Metabolic Ghe585 K 4.5 mEq/L 03/04/2019 Comp Metabolic Kzu211 CL 105 mEq/L 03/04/2019 Comp Metabolic Uad406 CO2 30.0 mEq/L 03/04/2019 Comp Metabolic Dja497 AN ION GAP 12 03/04/2019 Comp Metabolic Xyu547 GL UCOSE 92 mg/dL 03/04/2019 Comp Metabolic Tyc486 Cr eat 1.0 mg/dL 03/04/2019 Comp Metabolic Knr397 eG FR 80 ml/min/1.73m2 03/04 Comp Metabolic Hpd779 BUN 20 mg/dL 03/04/2019 Comp Metabolic Hgb986 B/ C Ratio 20.8 Ratio 03/04/2019 Comp Metabolic Yyq176 CA LCIUM 9.0 mg/dL 03/04/2019 Comp Metabolic Ire310 AL K PHOS 67 U/L 03/04/2019 Comp Metabolic Azx355 T(SGOT) 17 U/L 03/04/2019 Comp Metabolic Xau593 AL T(SGPT) 17 U/L 03/04/2019 Comp Metabolic Ijz613 BI LI T 0.4 mg/dL 03/04/2019 Comp Metabolic Qng359 AL BUMIN 3.9 g/dL 03/04/2019 Comp Metabolic Tmq626 TP RO 6.5 g/dL 03/04/2019 Comp Metabolic Ffc911 GL OB 2.6 g/dL 03/04/2019 Comp Metabolic Mtq172 A/ G Ratio 1.5 Ratio 03/04/2019 Comp Metabolic Xdh362 Os mo 285 mOsmo 03/04/2019 Cbc With [...] 33.4 pg 12/02/2018 Cbc With Differential Ord2 [place]% 8.0 % 12/02/2018 Cbc With Differential Ord2 [...] 2.13 K/ul 12/02/2018 Cbc With Differential Ord2 [place] ABS# 0.6 K/ul 12/02/2018 Cbc With Differential Ord2 Eos ABS# 0.4 K/ul 12/02/2018 Cbc With Differential Ord2 Baso ABS# 0.0 K/ul 12/02/2018 Testosterone Thl773 Testo 213.5 ng/dL 12/02/2018 A1C Frequency Okq659 A1CF 15461-9 Last A1C performed at [facility] [place] lab on: 201812/02/2018 Testosterone Mdh545 Testo 669.0 ng/dL 09/08/2018 %Hba1C Vzu453 % HbA1c 29435-0 7.4 % 09/08/2018 %Hba1C Bfw798 Gluc Ave 166 mg/dL 09/08/2018 Lipid Ord30 CHOL 114 mg/dL 09/08/2018 Lipid Ord30 HDL 28.0 mg/dl 09/08/2018 Lipid Ord30 TRIG 154 mg/dL 09/08/2018 Lipid Ord30 LDL 55 mg/dL 09/08/2018 Lipid Ord30 C/HDL 4.1 Ratio 09/08/2018 Comp Metabolic Uxn659 NA 137 mEq/L 09/08/2018 Comp Metabolic Pqw189 K 4.3 mEq/L 09/08/2018 Comp Metabolic Woq484 CL 100 mEq/L 09/08/2018 Comp Metabolic Ooy916 CO2 27.0 mEq/L 09/08/2018 Comp Metabolic Fas806 AN ION GAP 14 09/08/2018 Comp Metabolic Sct667 GL UCOSE 85 mg/dL 09/08/2018 Comp Metabolic Wgh072 Cr eat 1.1 mg/dL 09/08/2018 Comp Metabolic Dvg675 eG FR 70 ml/min/1.73m2 09/08 Comp Metabolic Bnu613 BUN 11 mg/dL 09/08/2018 Comp Metabolic Yer466 B/ C Ratio 10.3 Ratio 09/08/2018 Comp Metabolic Bpi948 CA LCIUM 9.2 mg/dL 09/08/2018 Comp Metabolic Pmn337 AL K PHOS 65 U/L 09/08/2018 Comp Metabolic Raw589 T(SGOT) 16 U/L 09/08/2018 Comp Metabolic Otl664 AL T(SGPT) 14 U/L 09/08/2018 Comp Metabolic Pkf967 BI LI T 0.6 mg/dL 09/08/2018 Comp Metabolic Qxk187 AL BUMIN 4.0 g/dL 09/08/2018 Comp Metabolic Iwp813 TP RO 6.6 g/dL 09/08/2018 Comp Metabolic Vhx206 GL OB 2.6 g/dL 09/08/2018 Comp Metabolic Giw861 A/ G Ratio 1.6 Ratio 09/08/2018 Comp Metabolic Uya588 Os mo 272 mOsmo 09/08/2018 Vitamin D 25 Oh Pjj0751 VITAMIN D, 25 HYDROXY 37.17 ng/mL 09/08/2018 [...] 33.3 pg 09/08/2018 Cbc With Differential Ord2 [place]% 8.1 % 09/08/2018 Cbc With Differential Ord2 [...] 2.44 K/ul 09/08/2018 Cbc With Differential Ord2 [place] ABS# 0.6 K/ul 09/08/2018 Cbc With Differential Ord2 Eos ABS# 0.3 K/ul 09/08/2018 Cbc With Differential Ord2 Baso ABS# 0.0 K/ul 09/08/2018 Tsh Ord6 TSH (3rd IS) 2.72 uIU/mL 09/08/2018 Comp Metabolic Igp292 NA 139 mEq/L 04/01/2018 Comp Metabolic Lpj016 K 4.2 mEq/L 04/01/2018 Comp Metabolic Ynm919 CL 102 mEq/L 04/01/2018 Comp Metabolic Csa545 CO2 29.0 mEq/L 04/01/2018 Comp Metabolic Iyb797 AN ION GAP 12 04/01/2018 Comp Metabolic Rmv608 GL UCOSE 87 mg/dL 04/01/2018 Comp Metabolic Olx717 Cr eat 1.1 mg/dL 04/01/2018 Comp Metabolic Pzx075 eG FR 70 ml/min/1.73m2 04/01 Comp Metabolic Jtu504 BUN 21 mg/dL 04/01/2018 Comp Metabolic Kkn879 B/ C Ratio 19.4 Ratio 04/01/2018 Comp Metabolic Hih856 CA LCIUM 9.1 mg/dL 04/01/2018 Comp Metabolic Nkz942 AL K PHOS 60 U/L 04/01/2018 Comp Metabolic Prw059 T(SGOT) 15 U/L 04/01/2018 Comp Metabolic Kob907 AL T(SGPT) 18 U/L 04/01/2018 Comp Metabolic Sid437 BI LI T 0.4 mg/dL 04/01/2018 Comp Metabolic Rrx678 AL BUMIN 4.0 g/dL 04/01/2018 Comp Metabolic Bwg162 TP RO 6.5 g/dL 04/01/2018 Comp Metabolic Ybm323 GL OB 2.5 g/dL 04/01/2018 Comp Metabolic Ekv563 A/ G Ratio 1.6 Ratio 04/01/2018 Comp Metabolic Pbs303 Os mo 280 mOsmo 04/01/2018 Lipid Ord30 [...] 34.3 pg 04/01/2018 Cbc With Differential Ord2 [place]% 6.0 % 04/01/2018 Cbc With Differential Ord2 [...] 3.25 K/ul 04/01/2018 Cbc With Differential Ord2 [place] ABS# 0.6 K/ul 04/01/2018 Cbc With Differential Ord2 Eos ABS# 0.4 K/ul 04/01/2018 Cbc With Differential Ord2 Baso ABS# 0.0 K/ul 04/01/2018 %Hba1C Cjh932 % HbA1c 80498-9 8.0 % 04/01/2018 %Hba1C Scn930 Gluc Ave 183 mg/dL 04/01/2018 Testosterone Mgw839 Testo 111.3 ng/dL 04/01/2018 Testosterone Ehj571 Testo 135.4 ng/dL 01/14/2018 Cbc With Differential [...] 36.0 pg 01/14/2018 Cbc With Differential Ord2 [place]% 6.8 % 01/14/2018 Cbc With Differential Ord2 [...] 2.71 K/ul 01/14/2018 Cbc With Differential Ord2 [place] ABS# 0.8 K/ul 01/14/2018 Cbc With Differential Ord2 Eos ABS# 0.2 K/ul 01/14/2018 Cbc With Differential Ord2 Baso ABS# 0.0 K/ul 01/14/2018 Comp Metabolic App981 NA 134 mEq/L 11/20/2017 Comp Metabolic Ans061 K 4.4 mEq/L 11/20/2017 Comp Metabolic Osr829 CL 99 mEq/L 11/20/2017 Comp Metabolic Jhc656 CO2 29.0 mEq/L 11/20/2017 Comp Metabolic Rtv339 AN ION GAP 10 11/20/2017 Comp Metabolic Btp039 GL UCOSE 218 mg/dL 11/20/2017 Comp Metabolic Eaq732 Cr eat 1.0 mg/dL 11/20/2017 Comp Metabolic Haz953 eG FR 78 ml/min/1.73m2 11/20 Comp Metabolic Rah034 BUN 13 mg/dL 11/20/2017 Comp Metabolic Wsw978 B/ C Ratio 13.3 Ratio 11/20/2017 Comp Metabolic Wgm100 CA LCIUM 9.0 mg/dL 11/20/2017 Comp Metabolic Zgr887 AL K PHOS 71 U/L 11/20/2017 Comp Metabolic Mca712 T(SGOT) 18 U/L 11/20/2017 Comp Metabolic Tmt318 AL T(SGPT) 17 U/L 11/20/2017 Comp Metabolic Hen940 BI LI T 0.4 mg/dL 11/20/2017 Comp Metabolic Fhd324 AL BUMIN 4.1 g/dL 11/20/2017 Comp Metabolic Fnu789 TP RO 6.5 g/dL 11/20/2017 Comp Metabolic Tzm387 GL OB 2.4 g/dL 11/20/2017 Comp Metabolic Yit500 A/ G Ratio 1.8 Ratio 11/20/2017 Comp Metabolic Keo557 Os mo 275 mOsmo 11/20/2017 Cbc With [...] 35.2 pg 11/20/2017 Cbc With Differential Ord2 [place]% 7.2 % 11/20/2017 Cbc With Differential Ord2 [...] 3.34 K/ul 11/20/2017 Cbc With Differential Ord2 [place] ABS# 0.6 K/ul 11/20/2017 Cbc With Differential Ord2 Eos ABS# 0.3 K/ul 11/20/2017 Cbc With Differential Ord2 Baso ABS# 0.0 K/ul 11/20/2017 Vitamin D 25 Oh Bpr7511 VITAMIN D, 25 HYDROXY 43.72 ng/mL 11/20/2017 %Hba1C Dma317 % HbA1c 93402-8 7.4 % 11/20/2017 %Hba1C Afe763 Gluc Ave 166 mg/dL 11/20/2017 %Hba1C Dmh391 % HbA1c 32418-1 7.2 % 08/20/2017 %Hba1C Wcp030 Gluc Ave 160 mg/dL 08/20/2017 Lipid Ord30 [...] 34.7 pg 08/20/2017 Cbc With Differential Ord2 [place]% 7.6 % 08/20/2017 Cbc With Differential Ord2 [...] 2.42 K/ul 08/20/2017 Cbc With Differential Ord2 [place] ABS# 0.6 K/ul 08/20/2017 Cbc With Differential Ord2 Eos ABS# 0.3 K/ul 08/20/2017 Cbc With Differential Ord2 Baso ABS# 0.0 K/ul 08/20/2017 Tsh Ord6 hTSH II 2.27 uIU/mL 08/20/2017 Comp Metabolic Opp384 NA 138 mEq/L 08/20/2017 Comp Metabolic Jah082 K 4.3 mEq/L 08/20/2017 Comp Metabolic Szv518 CL 102 mEq/L 08/20/2017 Comp Metabolic Oao029 CO2 29.0 mEq/L 08/20/2017 Comp Metabolic Rha389 AN ION GAP 11 08/20/2017 Comp Metabolic Ywz398 GL UCOSE 89 mg/dL 08/20/2017 Comp Metabolic Bon899 Cr eat 1.0 mg/dL 08/20/2017 Comp Metabolic Frg969 eG FR 80 ml/min/1.73m2 08/20 Comp Metabolic Fdf338 BUN 13 mg/dL 08/20/2017 Comp Metabolic Xpu001 B/ C Ratio 13.5 Ratio 08/20/2017 Comp Metabolic Kce096 CA LCIUM 9.2 mg/dL 08/20/2017 Comp Metabolic Kic772 AL K PHOS 69 U/L 08/20/2017 Comp Metabolic Qnw380 T(SGOT) 18 U/L 08/20/2017 Comp Metabolic Pnb353 AL T(SGPT) 19 U/L 08/20/2017 Comp Metabolic Vfc850 BI LI T 0.6 mg/dL 08/20/2017 Comp Metabolic Exb691 AL BUMIN 4.0 g/dL 08/20/2017 Comp Metabolic Aaw261 TP RO 6.6 g/dL 08/20/2017 Comp Metabolic Izi199 GL OB 2.6 g/dL 08/20/2017 Comp Metabolic Qqr252 A/ G Ratio 1.5 Ratio 08/20/2017 Comp Metabolic Snw111 Os mo 275 mOsmo 08/20/2017 Vitamin D 25 Oh Nrs6392 VITAMIN D, 25 HYDROXY 30.96 ng/mL 08/20/2017 B12 Apq206 B12 >1500.00 pg/ml 02/22/2017 Cbc With Differential [...] 35.7 pg 02/20/2017 Cbc With Differential Ord2 [place]% 6.3 % 02/20/2017 Cbc With Differential Ord2 [...] 3.19 K/ul 02/20/2017 Cbc With Differential Ord2 [place] ABS# 0.5 K/ul 02/20/2017 Cbc With Differential Ord2 Eos ABS# 0.4 K/ul 02/20/2017 Cbc With Differential Ord2 Baso ABS# 0.0 K/ul 02/20/2017 Comp Metabolic Teh812 NA 138 mEq/L 02/20/2017 Comp Metabolic Lkc857 K 4.5 mEq/L 02/20/2017 Comp Metabolic Pmf750 CL 101 mEq/L 02/20/2017 Comp Metabolic Ecl249 CO2 31.0 mEq/L 02/20/2017 Comp Metabolic Azk801 AN ION GAP 11 02/20/2017 Comp Metabolic Ktl585 GL UCOSE 120 mg/dL 02/20/2017 Comp Metabolic Aei074 Cr eat 0.9 mg/dL 02/20/2017 Comp Metabolic Dtg737 eG FR 83 ml/min/1.73m2 02/20 Comp Metabolic Dct188 BUN 15 mg/dL 02/20/2017 Comp Metabolic Wqt508 B/ C Ratio 16.1 Ratio 02/20/2017 Comp Metabolic Wva347 CA LCIUM 9.1 mg/dL 02/20/2017 Comp Metabolic Gox854 AL K PHOS 67 U/L 02/20/2017 Comp Metabolic Nah089 T(SGOT) 15 U/L 02/20/2017 Comp Metabolic Nqz359 AL T(SGPT) 16 U/L 02/20/2017 Comp Metabolic Fkp370 BI LI T 0.5 mg/dL 02/20/2017 Comp Metabolic Bns237 AL BUMIN 4.0 g/dL 02/20/2017 Comp Metabolic Kus441 TP RO 6.4 g/dL 02/20/2017 Comp Metabolic Uou948 GL OB 2.4 g/dL 02/20/2017 Comp Metabolic Jzh757 A/ G Ratio 1.7 Ratio 02/20/2017 Comp Metabolic Ixy024 Os mo 278 mOsmo 02/20/2017 Tsh Ord6 hTSH II 2.05 uIU/mL 02/20/2017 %Hba1C Nyx450 % HbA1c 45716-2 7.6 % 02/20/2017 %Hba1C Awk914 Gluc Ave 171 mg/dL 02/20/2017 Vitamin D 25 Oh Aan5879 VITAMIN D, 25 HYDROXY 44.40 ng/mL 12/21/2016 Comp Metabolic Ukk396 NA 131 mEq/L 12/21/2016 Comp Metabolic Zhq976 K 4.2 mEq/L 12/21/2016 Comp Metabolic Alz932 CL 97 mEq/L 12/21/2016 Comp Metabolic Kds444 CO2 27.0 mEq/L 12/21/2016 Comp Metabolic Wcp878 AN ION GAP 11 12/21/2016 Comp Metabolic Reh071 GL UCOSE 266 mg/dL 12/21/2016 Comp Metabolic Uia703 Cr eat 0.9 mg/dL 12/21/2016 Comp Metabolic Gfi944 eG FR 88 ml/min/1.73m2 12/21 Comp Metabolic Xvq944 BUN 12 mg/dL 12/21/2016 Comp Metabolic Cbp710 B/ C Ratio 13.6 Ratio 12/21/2016 Comp Metabolic Ala830 CA LCIUM 8.6 mg/dL 12/21/2016 Comp Metabolic Zhy951 AL K PHOS 69 U/L 12/21/2016 Comp Metabolic Ndg938 T(SGOT) 15 U/L 12/21/2016 Comp Metabolic Tzt217 AL T(SGPT) 14 U/L 12/21/2016 Comp Metabolic Gtu386 BI LI T 0.3 mg/dL 12/21/2016 Comp Metabolic Uhu528 AL BUMIN 3.7 g/dL 12/21/2016 Comp Metabolic Tvm619 TP RO 5.9 g/dL 12/21/2016 Comp Metabolic Cxe897 GL OB 2.2 g/dL 12/21/2016 Comp Metabolic Tdy411 A/ G Ratio 1.7 Ratio 12/21/2016 Comp Metabolic Vqc233 Os mo 272 mOsmo 12/21/2016 Cbc With [...] 34.6 pg 12/21/2016 Cbc With Differential Ord2 [place]% 6.9 % 12/21/2016 Cbc With Differential Ord2 [...] 2.05 K/ul 12/21/2016 Cbc With Differential Ord2 [place] ABS# 0.4 K/ul 12/21/2016 Cbc With Differential Ord2 Eos ABS# 0.2 K/ul 12/21/2016 Cbc With Differential Ord2 Baso ABS# 0.0 K/ul 12/21/2016 Comp Metabolic Okw028 NA 138 mEq/L 09/03/2016 Comp Metabolic Qkn995 K 4.5 mEq/L 09/03/2016 Comp Metabolic Wvb255 CL 102 mEq/L 09/03/2016 Comp Metabolic Xdb073 CO2 30.0 mEq/L 09/03/2016 Comp Metabolic Ywo409 AN ION GAP 11 09/03/2016 Comp Metabolic Akn044 GL UCOSE 113 mg/dL 09/03/2016 Comp Metabolic Ebh384 Cr eat 1.0 mg/dL 09/03/2016 Comp Metabolic Jil595 eG FR 81 ml/min/1.73m2 09/03 Comp Metabolic Ych730 BUN 10 mg/dL 09/03/2016 Comp Metabolic Ehx959 B/ C Ratio 10.5 Ratio 09/03/2016 Comp Metabolic Pdv840 CA LCIUM 9.1 mg/dL 09/03/2016 Comp Metabolic Vyj379 AL K PHOS 71 U/L 09/03/2016 Comp Metabolic Lwk187 T(SGOT) 18 U/L 09/03/2016 Comp Metabolic Jsq370 AL T(SGPT) 17 U/L 09/03/2016 Comp Metabolic Pso651 BI LI T 0.6 mg/dL 09/03/2016 Comp Metabolic Npm730 AL BUMIN 4.1 g/dL 09/03/2016 Comp Metabolic Bfs437 TP RO 6.4 g/dL 09/03/2016 Comp Metabolic Iym791 GL OB 2.3 g/dL 09/03/2016 Comp Metabolic Hlg472 A/ G Ratio 1.8 Ratio 09/03/2016 Comp Metabolic Wap278 Os mo 276 mOsmo 09/03/2016 Vitamin D 25 Oh Ijm6647 VITAMIN D, 25 HYDROXY 28.23 ng/mL 09/03/2016 [...] 34.4 pg 09/03/2016 Cbc With Differential Ord2 [place]% 8.9 % 09/03/2016 Cbc With Differential Ord2 [...] 3.34 K/ul 09/03/2016 Cbc With Differential Ord2 [place] ABS# 0.7 K/ul 09/03/2016 Cbc With Differential Ord2 Eos ABS# 0.4 K/ul 09/03/2016 Cbc With Differential Ord2 Baso ABS# 0.0 K/ul 09/03/2016 Lipid Ord30 CHOL 120 mg/dL 09/03/2016 Lipid Ord30 HDL 33.0 mg/dl 09/03/2016 Lipid Ord30 TRIG 161 mg/dL 09/03/2016 Lipid Ord30 LDL 55 mg/dL 09/03/2016 Lipid Ord30 C/HDL 3.6 Ratio 09/03/2016 %Hba1C Aid707 % HbA1c 93101-9 7.5 % 09/03/2016 %Hba1C Ixd906 Gluc Ave 169 mg/dL 09/03/2016 Tsh Ord6 hTSH II 1.50 uIU/mL 05/23/2016 %Hba1C Ddf364 % HbA1c 94041-7 7.6 % 05/23/2016 %Hba1C Spy604 Gluc Ave 171 mg/dL 05/23/2016 Comp Metabolic Nti004 NA 135 mEq/L 05/23/2016 Comp Metabolic Muo031 K 4.4 mEq/L 05/23/2016 Comp Metabolic Hfg407 CL 99 mEq/L 05/23/2016 Comp Metabolic Psg383 CO2 28.0 mEq/L 05/23/2016 Comp Metabolic Owt050 AN ION GAP 12 05/23/2016 Comp Metabolic Nsg216 GL UCOSE 257 mg/dL 05/23/2016 Comp Metabolic Drg592 Cr eat 0.8 mg/dL 05/23/2016 Comp Metabolic Oym771 eG FR 95 ml/min/1.73m2 05/23 Comp Metabolic Kwv804 BUN 11 mg/dL 05/23/2016 Comp Metabolic Ysy627 B/ C Ratio 13.3 Ratio 05/23/2016 Comp Metabolic Jrk321 CA LCIUM 9.0 mg/dL 05/23/2016 Comp Metabolic Csa677 AL K PHOS 82 U/L 05/23/2016 Comp Metabolic Flk697 T(SGOT) 21 U/L 05/23/2016 Comp Metabolic Pbm242 AL T(SGPT) 20 U/L 05/23/2016 Comp Metabolic Jwr498 BI LI T 0.3 mg/dL 05/23/2016 Comp Metabolic Sir824 AL BUMIN 4.0 g/dL 05/23/2016 Comp Metabolic Ell113 TP RO 6.4 g/dL 05/23/2016 Comp Metabolic Jme764 GL OB 2.4 g/dL 05/23/2016 Comp Metabolic Qqw332 A/ G Ratio 1.6 Ratio 05/23/2016 Comp Metabolic Tkd951 Os mo 278 mOsmo 05/23/2016 Cbc With [...] 34.5 pg 05/23/2016 Cbc With Differential Ord2 [place]% 6.1 % 05/23/2016 Cbc With Differential Ord2 [...] 2.38 K/ul 05/23/2016 Cbc With Differential Ord2 [place] ABS# 0.4 K/ul 05/23/2016 Cbc With Differential Ord2 Eos ABS# 0.2 K/ul 05/23/2016 Cbc With Differential Ord2 Baso ABS# 0.0 K/ul 05/23/2016 B12 Lbw081 B12 597.00 pg/ml 05/23/2016 Metabolic Ord15 NA [...] 0.92 uIU/mL 07/29/2015 Vitamin D 25 Oh Dju1066 VITAMIN D, 25 HYDROXY 26.93 ng/mL 07/29/2015 %Hba1C Vrn995 % HbA1c 67687-9 8.8 % 07/29/2015 %Hba1C Sro212 Gluc Ave 206 mg/dL 07/29/2015 Cbc With [...] Ord2 RDW 14.9 % 07/29/2015 Comp Metabolic Qoq281 NA 138 mEq/L 07/29/2015 Comp Metabolic Vwe914 K 4.4 mEq/L 07/29/2015 Comp Metabolic Xlk623 CL 102 mEq/L 07/29/2015 Comp Metabolic Xac750 CO2 28.0 mEq/L 07/29/2015 Comp Metabolic Ogp412 AN ION GAP 12 07/29/2015 Comp Metabolic Fro961 GL UCOSE 261 mg/dL 07/29/2015 Comp Metabolic Yri244 Cr eat 1.0 mg/dL 07/29/2015 Comp Metabolic Hha304 eG FR 77 ml/min/1.73m2 07/29 Comp Metabolic Sqm640 BUN 13 mg/dL 07/29/2015 Comp Metabolic Caq320 B/ C Ratio 13.0 Ratio 07/29/2015 Comp Metabolic Aif447 CA LCIUM 9.1 mg/dL 07/29/2015 Comp Metabolic Uqb306 AL K PHOS 64 U/L 07/29/2015 Comp Metabolic Abe534 T(SGOT) 20 U/L 07/29/2015 Comp Metabolic Jfb391 AL T(SGPT) 22 U/L 07/29/2015 Comp Metabolic Gtj743 BI LI T 0.4 mg/dL 07/29/2015 Comp Metabolic Oss468 AL BUMIN 4.0 g/dL 07/29/2015 Comp Metabolic Yan541 TP RO 6.1 g/dL 07/29/2015 Comp Metabolic Oev852 GL OB 2.1 g/dL 07/29/2015 Comp Metabolic Ylt413 A/ G Ratio 1.9 Ratio 07/29/2015 Comp Metabolic Bip331 Os mo 285 mOsmo 07/29/2015 Cbc With [...] Ord2 RDW 13.1 % 05/06/2015 Comp Metabolic Bzg828 NA 134 mEq/L 05/06/2015 Comp Metabolic Owt364 K 4.4 mEq/L 05/06/2015 Comp Metabolic Xwy077 CL 98 mEq/L 05/06/2015 Comp Metabolic Kpw848 CO2 29.0 mEq/L 05/06/2015 Comp Metabolic Sps297 AN ION GAP 11 05/06/2015 Comp Metabolic Kjb456 GL UCOSE 321 mg/dL 05/06/2015 Comp Metabolic Fvy855 Cr eat 1.0 mg/dL 05/06/2015 Comp Metabolic Gvg428 eG FR 78 ml/min/1.73m2 05/06 Comp Metabolic Vbs257 BUN 20 mg/dL 05/06/2015 Comp Metabolic Iyz206 B/ C Ratio 20.4 Ratio 05/06/2015 Comp Metabolic Dnv724 CA LCIUM 9.5 mg/dL 05/06/2015 Comp Metabolic Egj717 AL K PHOS 62 U/L 05/06/2015 Comp Metabolic Bvn121 T(SGOT) 21 U/L 05/06/2015 Comp Metabolic Nrt861 AL T(SGPT) 37 U/L 05/06/2015 Comp Metabolic Uhl718 BI LI T 0.4 mg/dL 05/06/2015 Comp Metabolic Vcg578 AL BUMIN 3.8 g/dL 05/06/2015 Comp Metabolic Afc336 TP RO 6.1 g/dL 05/06/2015 Comp Metabolic Wep781 GL OB 2.3 g/dL 05/06/2015 Comp Metabolic Nrp824 A/ G Ratio 1.7 Ratio 05/06/2015 Comp Metabolic Gsh573 Os mo 283 mOsmo 05/06/2015 Tsh Ord6 hTSH II 1.65 uIU/mL 02/18/2015 B12 Cfs136 B12 605.00 pg/ml 02/18/2015 %Hba1C Zec709 % HbA1c 68262-2 8.3 % 02/18/2015 %Hba1C Iln803 Gluc Ave 192 mg/dL 02/18/2015 Cbc With [...] Ord2 RDW 13.9 % 02/17/2015 Comp Metabolic Lpd007 NA 137 mEq/L 02/17/2015 Comp Metabolic Yoe392 K 4.4 mEq/L 02/17/2015 Comp Metabolic Dzo693 CL 100 mEq/L 02/17/2015 Comp Metabolic Lqy382 CO2 31.0 mEq/L 02/17/2015 Comp Metabolic Lnt824 AN ION GAP 10 02/17/2015 Comp Metabolic Mse333 GL UCOSE 307 mg/dL 02/17/2015 Comp Metabolic Vgf022 Cr eat 1.0 mg/dL 02/17/2015 Comp Metabolic Wkz753 eG FR 74 ml/min/1.73m2 02/17 Comp Metabolic Obs080 BUN 22 mg/dL 02/17/2015 Comp Metabolic Wbm162 B/ C Ratio 21.4 Ratio 02/17/2015 Comp Metabolic Fxg500 CA LCIUM 9.5 mg/dL 02/17/2015 Comp Metabolic Yra431 AL K PHOS 78 U/L 02/17/2015 Comp Metabolic Lam572 T(SGOT) 18 U/L 02/17/2015 Comp Metabolic Odj982 AL T(SGPT) 32 U/L 02/17/2015 Comp Metabolic Rvc322 BI LI T 0.5 mg/dL 02/17/2015 Comp Metabolic Xfe268 AL BUMIN 4.3 g/dL 02/17/2015 Comp Metabolic Aok332 TP RO 6.7 g/dL 02/17/2015 Comp Metabolic Azj544 GL OB 2.4 g/dL 02/17/2015 Comp Metabolic Udt344 A/ G Ratio 1.8 Ratio 02/17/2015 Comp Metabolic Drp077 Os mo 289 mOsmo 02/17/2015 Review of [...] sounds 09/02/2018 None Full Exam - General 1994 [...] dentition 04/25/2017 None Full Exam - General 1995 Ears/Nose/Throat lips/teeth/gingiva Overall: benign gingiva 04/25/2017 None Full Exam - General 1995 Ears/Nose/Throat lips/teeth/gingiva Overall: no masses 04/25/2017 None Full Exam - General 1994 Ears/Nose/Throat oral cavity/pharynx/larynx Overall: oral mucosa clear 04/25/2017 None Full Exam - General 1995 Ears/Nose/Throat [...] dentition 02/19/2017 None Full Exam - General 1995 Ears/Nose/Throat lips/teeth/gingiva Overall: benign gingiva 02/19/2017 None Full Exam - General 1994 Ears/Nose/Throat lips/teeth/gingiva Overall: no masses 02/19/2017 None Full Exam - General 1994 Ears/Nose/Throat oral cavity/pharynx/larynx Overall: oral mucosa clear 02/19/2017 None Full Exam - General 1994 Ears/Nose/Throat oral cavity/pharynx/larynx Overall: oropharyngeal mucosa clear 02/19/2017 None Full Exam - General 1995 Ears/Nose/Throat oral cavity/pharynx/larynx Overall: no masses 02/19/2017 [...] visualized 08/23/2016 None Full Exam - General 1995 Ears/Nose/Throat lips/teeth/gingiva Overall: benign lips 08/23/2016 None Full Exam - General 1995 Ears/Nose/Throat lips/teeth/gingiva Overall: normal dentition 08/23/2016 None [...] inspection of skin Location: face 03/07/2015 on caodaism, cheeks,actinic keratosis with irritation on left cheek - left caodaism - croptherapy on these two lesions - [...] Procedure Codes Date THER/PROPH/DIAG INJ SC/IM CPT-4: 53701 03/31/2019 THER/PROPH/DIAG INJ SC/IM CPT-4: 63734 03/17/2019 THER/PROPH/DIAG INJ SC/IM CPT-4: 15387 03/04/2019 THER/PROPH/DIAG INJ SC/IM CPT-4: 09975 02/16/2019 THER/PROPH/DIAG INJ SC/IM CPT-4: 87410 01/30/2019 THER/PROPH/DIAG INJ SC/IM CPT-4: 33369 01/16/2019 THER/PROPH/DIAG INJ SC/IM CPT-4: 77662 01/01/2019 THER/PROPH/DIAG INJ SC/IM CPT-4: 51505 12/17/2018 THER/PROPH/DIAG INJ SC/IM CPT-4: 79111 12/02/2018 THER/PROPH/DIAG INJ SC/IM CPT-4: 48284 11/18/2018 THER/PROPH/DIAG INJ SC/IM CPT-4: 52439 11/04/2018 THER/PROPH/DIAG INJ SC/IM CPT-4: 33422 10/14/2018 THER/PROPH/DIAG INJ SC/IM CPT-4: 01107 10/03/2018 THER/PROPH/DIAG INJ SC/IM CPT-4: 02256 09/23/2018 THER/PROPH/DIAG INJ SC/IM CPT-4: 50937 09/02/2018 THER/PROPH/DIAG INJ SC/IM CPT-4: 16577 08/21/2018 THER/PROPH/DIAG INJ SC/IM CPT-4: 26293 08/08/2018 THER/PROPH/DIAG INJ SC/IM CPT-4: 87766 07/28/2018 THER/PROPH/DIAG INJ SC/IM CPT-4: 47209 07/16/2018 THER/PROPH/DIAG INJ SC/IM CPT-4: 24139 07/02/2018 PPPS, SUBSEQ VISIT CPT- 4: G0439 06/30/2018 THER/PROPH/DIAG INJ SC/IM CPT-4: 10059 06/24/2018 THER/PROPH/DIAG INJ SC/IM CPT-4: 37516 06/13/2018 ADMIN INFLUENZA VIRU S VAC CPT-4: G0008 06/06/2018 FLU VACC PRSV FREE I NC ANTIG CPT-4: 16464 06/06/2018 THER/PROPH/DIAG INJ SC/IM CPT-4: 60902 06/05/2018 THER/PROPH/DIAG INJ SC/IM CPT-4: 80857 05/30/2018 THER/PROPH/DIAG INJ SC/IM CPT-4: 20754 05/22/2018 THER/PROPH/DIAG INJ SC/IM CPT-4: 06324 05/12/2018 THER/PROPH/DIAG INJ SC/IM CPT-4: 64676 05/02/2018 THER/PROPH/DIAG INJ SC/IM CPT-4: 81082 04/24/2018 THER/PROPH/DIAG INJ SC/IM CPT-4: 24125 04/17/2018 KETOROLAC TROMETHAMI NE INJ CPT-4: J1885 03/07/2018 URINALYSIS NONAUTO W /O SCOPE CPT-4: 91817 03/07/2018 THER/PROPH/DIAG INJ SC/IM CPT-4: 56115 02/20/2018 TRIAMCINOLONE ACET I [place] NOS CPT-4: J3301 01/30/2018 THER/PROPH/DIAG INJ SC/IM CPT-4: 98269 01/17/2018 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 3-[address]: 199993522 CPT-4: G0436 04/25/2017 ADMIN INFLUENZA VIRU S VAC CPT-4: G0008 04/25/2017 ADMIN PNEUMOCOCCAL V ACCINE SNOMED CT: 43034883 CPT-4: G0009 04/25/2017 PNEUMOCOCCAL VACC [address]: 87221494 CPT-4: 68647 04/25/2017 FLU VACC PRSV FREE I NC ANTIG CPT-4: 69708 04/25/2017 ADMIN INFLUENZA VIRU S VAC CPT-4: G0008 05/22/2016 FLU VACC 4 TELLY 3 YRS PLUS IM Formatting Model/CDA Sections, Assigned to/Angela Clemons SNOMED CT: 57701864 CPT-4: 31389Ichsidp 05/22/2016 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 3-[address]: 524292594 CPT-4: G0436 11/25/2015 URINALYSIS NONAUTO W /O SCOPE CPT-4: 48015 05/09/2015 TRIAMCINOLONE ACET I [place] NOS CPT-4: J3301 04/12/2015 DESTRUCT PREMALG LESION CPT-4: 65262 03/07/2015 DESTRUCT PREMALG LES 2-14 CPT-4: 03904 03/07/2015 REMOVE IMPACTED EAR WAX UNI CPT-4: 19648 12/31/2014 THER/PROPH/DIAG INJ SC/IM CPT-4: 03239 12/23/2014 TRIAMCINOLONE ACET I [place] NOS CPT-4: J3301 12/23/2014 Vital Signs Date Vital 03/03/2019 Blood Pressure 1: 150/72 Code: 8480-6 BMI: 20.6 Code: 36058-1 Heart Rate 1: 63 bpm Height: 5'11" SpO2: 100% Weight: 147 lbs 8 oz 12/02/2018 Blood Pressure 1: 140/70 Code: 8480-6 BMI: 21.9 Code: 35125-8 Heart Rate 1: 61 bpm Height: 5'11" SpO2: 94% Weight: 157 lbs 10/17/2018 Blood Pressure 1: 124/54 Code: 8480-6 BMI: 21.9 Code: 01712-1 Heart Rate 1: 64 bpm Height: 5'11" SpO2: 93% Weight: 157 lbs 09/02/2018 Blood Pressure 1: 140/80 Code: 8480-6 BMI: 21.2 Code: 09043-9 Heart Rate 1: 68 bpm Height: 5'11" SpO2: 97% Weight: 152 lbs 06/30/2018 BMI: 21.8 Code: 64928-5 Height: 5'11" Weight: 156 lbs 06/06/2018 Blood Pressure 1: 128/76 Code: 8480-6 BMI: 22.0 Code: 92984-2 Heart Rate 1: 81 bpm Height: 5'11" SpO2: 92% Weight: 158 lbs 04/04/2018 Blood Pressure 1: 124/70 Code: 8480-6 BMI: 20.8 Code: 00273-0 Heart Rate 1: 65 bpm Height: 5'11" SpO2: 95% Weight: 149 lbs 03/07/2018 Blood Pressure 1: 148/70 Code: 8480-6 BMI: 21.2 Code: 56219-9 Heart Rate 1: 66 bpm Height: 5'11" SpO2: 94% Weight: 152 lbs 02/20/2018 Blood Pressure 1: 134/58 Code: 8480-6 BMI: 20.5 Code: 15149-2 Heart Rate 1: 61 bpm Height: 5'11" SpO2: 92% Weight: 147 lbs 01/30/2018 Blood Pressure 1: 158/68 Code: 8480-6 BMI: 21.5 Code: 62640-7 Heart Rate 1: 71 bpm Height: 5'11" SpO2: 92% Weight: 154 lbs 01/14/2018 Blood Pressure 1: 156/70 Code: 8480-6 Height: Weight: 01/13/2018 Blood Pressure 1: 148/62 Code: 8480-6 BMI: 20.9 Code: 54922-0 Heart Rate 1: 54 bpm Height: 5'11" SpO2: 97% Weight: 150 lbs 11/19/2017 Blood Pressure 1: 150/60 Code: 8480-6 BMI: 21.8 Code: 11574-7 Heart Rate 1: 63 bpm Height: 5'11" SpO2: 98% Weight: 156 lbs 10/02/2017 Blood Pressure 1: 168/60 Code: 8480-6 BMI: 21.9 Code: 81912-0 Heart Rate 1: 52 bpm Height: 5'11" SpO2: 97% Weight: 157 lbs 07/23/2017 Blood Pressure 1: 170/70 Code: 8480-6 BMI: 21.8 Code: 59606-8 Heart Rate 1: 65 bpm Height: 5'11" SpO2: 98% Weight: 156 lbs 04/25/2017 Blood Pressure 1: 138/60 Code: 8480-6 BMI: 21.6 Code: 89127-8 Heart Rate 1: 55 bpm Height: 5'11" SpO2: 93% Weight: 155 lbs 02/19/2017 Blood Pressure 1: 138/64 Code: 8480-6 BMI: 21.3 Code: 61929-3 Heart Rate 1: 52 bpm Height: 5'11" SpO2: 96% Weight: 152 lbs 8 oz 01/21/2017 Blood Pressure 1: 160/68 Code: 8480-6 BMI: 21.3 Code: 78431-1 Heart Rate 1: 62 bpm Height: 5'11" SpO2: 96% Weight: 153 lbs 12/20/2016 Blood Pressure 1: 124/66 Code: 8480-6 BMI: 21.5 Code: 01754-3 Height: 5'11" Weight: 154 lbs 08/23/2016 Blood Pressure 1: 142/52 Code: 8480-6 BMI: 21.2 Code: 40893-2 Heart Rate 1: 54 bpm Height: 5'11" SpO2: 96% Weight: 152 lbs 05/22/2016 Blood Pressure 1: 130/76 Code: 8480-6 BMI: 21.5 Code: 49454-6 Heart Rate 1: 78 bpm Height: 5'11" SpO2: 92% Weight: 154 lbs 02/24/2016 Blood Pressure 1: 128/80 Code: 8480-6 BMI: 21.2 Code: 45180-6 Heart Rate 1: 74 bpm Height: 5'11" SpO2: 96% Weight: 152 lbs 01/27/2016 Blood Pressure 1: 144/60 Code: 8480-6 BMI: 21.2 Code: 40070-8 Heart Rate 1: 74 bpm Height: 5'11" SpO2: 97% Weight: 152 lbs 11/25/2015 Blood Pressure 1: 110/52 Code: 8480-6 BMI: 21.9 Code: 07060-7 Heart Rate 1: 65 bpm Height: 5'11" SpO2: 92% Weight: 157 lbs 07/28/2015 Blood Pressure 1: 138/62 Code: 8480-6 BMI: 21.8 Code: 63620-4 Heart Rate 1: 63 bpm Height: 5'11" SpO2: 91% Weight: 156 lbs 05/26/2015 Blood Pressure 1: 120/58 Code: 8480-6 BMI: 21.5 Code: 18594-4 Heart Rate 1: 99 bpm Height: 5'11" SpO2: 96% Weight: 154 lbs 05/06/2015 Blood Pressure 1: 120/58 Code: 8480-6 BMI: 21.2 Code: 68574-9 Heart Rate 1: 66 bpm Height: 5'11" SpO2: 96% Weight: 152 lbs 04/25/2015 Blood Pressure 1: 136/62 Code: 8480-6 BMI: 21.2 Code: 89312-1 Heart Rate 1: 63 bpm Height: 5'11" SpO2: 97% Weight: 152 lbs 04/12/2015 Blood Pressure 1: 160/58 Code: 8480-6 BMI: 21.6 Code: 09783-1 Heart Rate 1: 62 bpm Height: 5'11" Weight: 155 lbs 03/24/2015 Blood Pressure 1: 138/68 Code: 8480-6 BMI: 22.0 Code: 87052-4 Heart Rate 1: 65 bpm Height: 5'11" SpO2: 96% Weight: 158 lbs 03/07/2015 Blood Pressure 1: 116/52 Code: 8480-6 BMI: 22.2 Code: 97268-3 Heart Rate 1: 64 bpm Height: 5'11" SpO2: 97% Weight: 159 lbs 02/17/2015 Blood Pressure 1: 148/58 Code: 8480-6 BMI: 21.3 Code: 82734-9 Heart Rate 1: 63 bpm Height: 5'11" SpO2: 97% Weight: 153 lbs 12/31/2014 Blood Pressure 1: 100/60 Code: 8480-6 BMI: 21.8 Code: 65672-3 Heart Rate 1: 68 bpm Height: 5'11" Weight: 156 lbs 12/23/2014 Blood Pressure 1: 148/64 Code: 8480-6 BMI: 21.9 Code: 20040-2 Heart Rate 1: 64 bpm Height: 5'11" [...] chr onic 06/06/2018 None hypertension Quality angely haylee hypertension 06/06/2018 None hypertension Onset and Resolution [...] Encounters Encounter Performer Loca tion Codes Date ([id number]) 43710 EST. P ATIENT, LEVEL IV Diagnosis: Chronic obstructive pulmonary disease, unspecified[ICD10: J44.9] Diagnosis: Mixed hyperlipidemia[ICD10: E78.2] Diagnosis: Type 2 diabetes mellitus with hyperglycemia[ICD10: E11.65] Diagnosis: Testicular dysfunction, unspecified[ICD10: E29.9] Diagnosis: Abnormal weight loss[ICD10: R63.4] Karmen Ash MD, [facility] CPT-4: 63389 03/03/2019 ([id number]) 89104 EST. P ATIENT, LEVEL IV Diagnosis: Chronic obstructive pulmonary disease, unspecified[ICD10: J44.9] Diagnosis: Type 2 diabetes mellitus with hyperglycemia[ICD10: E11.65] Diagnosis: Testicular dysfunction, unspecified[ICD10: E29.9] Diagnosis: Other insomnia[ICD10: G47.09] [facility] CPT- 4: 18805 12/02/2018 ([id number]) 72632 EST. P ATIENT, LEVEL III Diagnosis: Orthostatic hypotension[ICD10: I95.1] Diagnosis: Low back pain[ICD10: M54.5] Diagnosis: Unsteadiness on feet[ICD10: R26.81] [facility] CPT-4: 48876 10/17/2018 ([id number]) 42382 EST. 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 CPT-4: 62392 09/02/2018 ([id number]) 64519 EST. P ATIENT, LEVEL IV Diagnosis: Cellulitis of face[ICD10: L03.211] Diagnosis: Type 2 diabetes mellitus without complications[ICD10: E11.9] Diagnosis: Essential (primary) hypertension[ICD10: I10] Diagnosis: Encounter for immunization[ICD10: Z23] [facility] CPT-4: 98087 06/06/2018 ([id number]) 89893 EST. P ATIENT, LEVEL IV Diagnosis: Essential (primary) hypertension[ICD10: I10] Diagnosis: Chronic obstructive pulmonary disease, unspecified[ICD10: J44.9] Diagnosis: Testicular dysfunction, unspecified[ICD10: E29.9] Diagnosis: Type 2 diabetes mellitus with hyperglycemia[ICD10: E11.65] [facility] CPT-4: 52084 04/04/2018 ([id number]) 88674 EST. P ATIENT, LEVEL III Diagnosis: Low back pain[ICD10: M54.5] Diagnosis: Dysuria[ICD10: R30.0] Karmen Ash MD, [facility] CPT-4: 08909 03/07/2018 ([id number]) 95035 EST. 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 CPT-4: 33075 02/20/2018 ([id number]) 50966 EST. P ATIENT, LEVEL III Diagnosis: Chronic obstructive pulmonary disease with (acute) exacerbation[ICD10: J44.1] Karmen Ash MD, [facility] CPT-4: 63210 01/30/2018 84704 EST. PATIENT, LEVEL II Diagnosis: Insect bite (nonvenomous), left lower leg, initial encounter[ICD10: S80.862A] Karmen Ash MD, [facility] CPT-4: 36149 01/14/2018 ([id number]) 85418 EST. P ATIENT, LEVEL IV Diagnosis: Type 2 diabetes mellitus with hyperglycemia[ICD10: E11.65] Diagnosis: Chronic obstructive pulmonary disease, unspecified[ICD10: J44.9] Diagnosis: Other fatigue[ICD10: R53.83] Karmen Ash MD, [facility] CPT- 4: 44568 01/13/2018 ([id number]) 55139 EST. P ATIENT, LEVEL IV Diagnosis: Type 2 diabetes mellitus with hyperglycemia[ICD10: E11.65] Diagnosis: Vitamin D deficiency, unspecified[ICD10: E55.9] Diagnosis: Essential (primary) hypertension[ICD10: I10] Diagnosis: Abdominal distension (gaseous)[ICD10: R14.0] Diagnosis: Drug induced constipation[ICD10: K59.03] Karmen Ash MD, [facility] CPT-4: 81927 11/19/2017 55656 EST. PATIENT, LEVEL IV Diagnosis: Low back pain[ICD10: M54.5] Diagnosis: Chronic obstructive pulmonary disease, unspecified[ICD10: J44.9] Brunilda Ash MD, [facility] CPT-4: 82475 10/02/2017 ([id number]) 66850 EST. P ATIENT, LEVEL IV Diagnosis: Essential (primary) hypertension[ICD10: I10] Diagnosis: Type 2 diabetes mellitus with hyperglycemia[ICD10: E11.65] Diagnosis: Vitamin D deficiency, unspecified[ICD10: E55.9] Diagnosis: Mixed hyperlipidemia[ICD10: E78.2] Karmen sAh MD, [facility] CPT-4: 94297 07/23/2017 ([id number]) 71201 EST. P ATIENT, LEVEL IV Diagnosis: Essential (primary) hypertension[ICD10: I10] Diagnosis: Type 2 diabetes mellitus with hyperglycemia[ICD10: E11.65] Diagnosis: Chronic obstructive pulmonary disease, unspecified[ICD10: J44.9] Diagnosis: Nicotine dependence, unspecified, uncomplicated[ICD10: F17.200] Diagnosis: Encounter for immunization[ICD10: Z23] Karmen Ash MD, [facility] CPT-4: 87560 04/25/2017 ([id number]) 46566 EST. P ATIENT, LEVEL IV Diagnosis: Type 2 diabetes mellitus with hyperglycemia[ICD10: E11.65] Diagnosis: Essential (primary) hypertension[ICD10: I10] Diagnosis: Anemia, unspecified[ICD10: D64.9] Karmen Ash MD, [facility] CPT- 4: 13152 02/19/2017 ([id number]) 13129 EST. P ATIENT, LEVEL IV Diagnosis: Slow transit constipation[ICD10: K59.01] Diagnosis: Gastro-esophageal reflux disease without esophagitis[ICD10: K21.9] Diagnosis: Essential (primary) hypertension[ICD10: I10] Karmen Ash MD, [facility] CPT-4: 91667 01/21/2017 ([id number]) 66214 EST. P ATIENT, LEVEL IV Diagnosis: Type 2 diabetes mellitus with hyperglycemia[ICD10: E11.65] Diagnosis: Vitamin D deficiency, unspecified[ICD10: E55.9] Diagnosis: Essential (primary) hypertension[ICD10: I10] Diagnosis: Chronic obstructive pulmonary disease, unspecified[ICD10: J44.9] Karmen Ash MD, [facility] CPT-4: 45493 12/20/2016 ([id number]) 81436 EST. P ATIENT, LEVEL IV Diagnosis: Type 2 diabetes mellitus with hyperglycemia[ICD10: E11.65] Diagnosis: Essential (primary) hypertension[ICD10: I10] Diagnosis: Mixed hyperlipidemia[ICD10: E78.2] Diagnosis: Vitamin D deficiency, unspecified[ICD10: E55.9] Karmen Ash MD, [facility] CPT-4: 53979 08/23/2016 ([id number]) 65258 EST. P ATIENT, LEVEL IV Diagnosis: Type 2 diabetes mellitus with hyperglycemia[ICD10: E11.65] Diagnosis: Essential (primary) hypertension[ICD10: I10] Diagnosis: Chronic obstructive pulmonary disease, unspecified[ICD10: J44.9] Karmen Ash MD, [facility] CPT-4: 74891 05/22/2016 ([id number]) 58903 EST. P ATIENT, LEVEL III Diagnosis: Dysuria[ICD10: R30.0] Diagnosis: Essential (primary) hypertension[ICD10: I10] Karmen Ash MD, [facility] CPT-4: 56152 02/24/2016 ([id number]) 17112 EST. P ATIENT, LEVEL IV Diagnosis: Gastro-esophageal reflux disease without esophagitis[ICD10: K21.9] Diagnosis: Slow transit constipation[ICD10: K59.01] Diagnosis: Type 2 diabetes mellitus with hyperglycemia[ICD10: E11.65] Karmen Ash MD, [facility] CPT-4: 07063 01/27/2016 ([id number]) 30123 EST. P ATIENT, LEVEL IV Diagnosis: Essential (primary) hypertension[ICD10: I10] Diagnosis: Type 2 diabetes mellitus with hyperglycemia[ICD10: E11.65] Diagnosis: Vitamin D deficiency, unspecified[ICD10: E55.9] Diagnosis: Chronic obstructive pulmonary disease, unspecified[ICD10: J44.9] Diagnosis: Mixed hyperlipidemia[ICD10: E78.2] Diagnosis: Tobacco use[ICD10: Z72.0] Karmen Ash MD, [facility] CPT- 4: 65389 11/25/2015 ([id number]) 01443 EST. P ATIENT, LEVEL IV Diagnosis: Type 2 diabetes mellitus with hyperglycemia[ICD10: E11.65] Diagnosis: Essential (primary) hypertension[ICD10: I10] Diagnosis: Vitamin D deficiency, unspecified[ICD10: E55.9] Karmen Ash MD, [facility] CPT-4: 12042 07/28/2015 ([id number]) 72939 EST. P ATIENT, LEVEL III Diagnosis: Type 2 diabetes mellitus with hyperglycemia[ICD10: E11.65] Diagnosis: Essential (primary) hypertension[ICD10: I10] Violeta Ash MD, [facility] CPT-4: 87260 05/26/2015 ([id number]) 06123 EST. P ATIENT, LEVEL III Diagnosis: DIABETES TYPE II[ICD9: 250.00] Diagnosis: COPD (chronic obstructive pulmonary disease)[ICD9: 496] Diagnosis: ESSENTIAL HYPERTENSION[ICD9: 401.9] Diagnosis: Cough[ICD9: 786.2] Violeta Ash MD, [facility] CPT-4: 80722 05/06/2015 ([id number]) 24519 EST. P ATIENT, LEVEL III Diagnosis: COPD (chronic obstructive pulmonary disease)[ICD9: 496] Diagnosis: DIABETES TYPE II[ICD9: 250.00] Diagnosis: Muscle ache[ICD9: 729.1] Karmen Ash MD, [facility] CPT- 4: 22277 04/25/2015 ([id number]) 93871 EST. P ATIENT, LEVEL III Diagnosis: ACTINIC KERATOSIS[ICD9: 702.0] Diagnosis: COPD (chronic obstructive pulmonary disease)[ICD9: 496] Diagnosis: DIABETES TYPE II[ICD9: 250.00] Diagnosis: ACUTE URI[ICD9: 465.9] Violeta Ash MD, [facility] CPT-4: 12316 04/12/2015 ([id number]) 76870 EST. P ATIENT, LEVEL III Diagnosis: DIABETES TYPE II[ICD9: 250.00] Violeta Ash MD, [facility] CPT-4: 75829 03/24/2015 ([id number]) 83833 EST. [facility] Diagnosis: DIABETES TYPE II[ICD9: 250.00] Diagnosis: Hypoglycemia[ICD9: 251.2] Diagnosis: Skin texture changes[ICD9: 782.8] Violeta Ash MD, [facility] CPT-4: 75071 03/07/2015 ([id number]) 11773 EST. [facility], LEV[facility] IV Diagnosis: COPD (chronic obstructive pulmonary disease)[ICD9: 496] Diagnosis: Fatigue[ICD9: 780.79] Diagnosis: Insulin dependent diabetes mellitus[ICD9: 250.00] Diagnosis: Unsteady gait[ICD9: 781.2] Maame Ash MD, [facility] CPT-4: 69131 02/17/2015 ([id number]) 34880 EST. [facility] IV Diagnosis: BPPV (benign paroxysmal positional vertigo)[ICD9: 386.11] Diagnosis: Impacted cerumen[ICD9: 380.4] Diagnosis: ESSENTIAL HYPERTENSION[ICD9: 401.9] Diagnosis: Insulin dependent diabetes mellitus[ICD9: 250.00] Karmen Ash MD, [facility] CPT-4: 53144 12/23/2014 ([id number]) [facility] LEVEL 4 Diagnosis: Insulin dependent diabetes mellitus[ICD9: 250.00] Diagnosis: BPPV (benign paroxysmal positional vertigo)[ICD9: 386.11] Diagnosis: COPD (chronic obstructive pulmonary disease)[ICD9: 496] Diagnosis: Tobacco abuse[ICD9: 305.1] Diagnosis: Osteoarthritis[ICD9: 715.90] [facility] CPT- 4: 51313 12/09/2014 Plan of Care Planned Activity Notes C odes Status Date Patient Education: Patient Medication Summary Completed 03/31/2019 [...] patient is stable, monitor for acute changes. 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 provided DM -rx for CGM -patient is due for labs Low testosterone - check level 03/03/2019 [phone] [phone] (30 min) Complex 03/03/2019 Patient Education: Patient [...] directed 12/02/2018 Appointment: [facility] [phone] [phone] (30 min) Complex 12/02/2018 Patient Education: Patient Medication Summary Completed 12/02/2018 Patient Education: Diabetes Completed 12/02/2018 Appointment: Injection 11/18/2018 Patient Education: Patient Medication Summary Completed 11/18/2018 Appointment: Injection 11/04/2018 Patient Education: Patient Medication Summary Completed 11/04/2018 App[facility]ment: [facility] [phone] [phone] (30 min) Complex 10/21/2018 Visit Plan: Orthostatic [...] recommend patient use a walker 10/17/2018 Appointment: [facility] [phone] [phone] (30 min) Complex 10/17/2018 Patient Education: Patient [...] medications. 09/02/2018 Appointment: [facility] [phone] [phone] (15 min) Moderate 09/02/2018 Patient Education: Patient [...] 07/02/2018 Visit Plan: Medicare Exam - today ronald omalley discussed the patients past history, immunizations, preventative [...] care surrogate. 06/30/2018 Appointment: [facility] [phone] [phone] [facility] - Annual Wellness Visit 06/30/2018 Patient Education: [...] in pain. 06/06/2018 Appointment: Karm[facility] Espinal WPtel[phone] (15 min) Moderate 06/06/2018 Patient Education: Patient [...] 2 months 04/04/2018 Appointment: Karmen Espinal WPtel: [phone] [phone] (15 min) Moderate 04/04/2018 Patient Education: Patient Medication Summary Completed 04/04/2018 Care Plan: Cbc With Differential Pending 04/04/2018 Care Plan: Testosterone repeat in 2 months Pending 04/04/2018 Appointment: Karmen Espinal WPtel: [phone] [phone] [place] (15 min) Moderate 03/25/2018 Visit Plan: Low back pain -history of kidney stone-UA negative today -increase fluids and call if pain does not resolve or if any worse. 03/07/2018 Appointment: Karmen Espinal WPtel: [phone] [phone] [place] (15 min) Moderate 03/07/2018 Patient Education: [...] 1 month 02/20/2018 Appointment: Karmen Espinal WPtel: [address] [place], [place] [phone] (15 min) Moderate 02/20/2018 Patient Education: Patient Medication Summary Completed 02/20/2018 Visit Plan: COPD EXACERBATION - AIR BRAKE TESTER D is a chronic problem for this [...] acute changes. 01/30/2018 Appointment: Karmen Espinal WPtel: [phone] (15 min) Moderate 01/30/2018 Patient Education: Patient Medication Summary Completed 01/30/2018 Appointment: Karmen Espinal WPtel: [address] [place] [address] (15 min) Moderate 01/28/2018 Appointment: Injection 01/17/2018 Patient Education: Patient Medication Summary Completed 01/17/2018 Visit Plan: Cellulitis - start oral antibiotics as directed, return to clinic as previously directed, call for acute change in symptoms, worsening redness, warmth, discharge. 01/14/2018 Appointment: Karmen Espinal WPtel: [phone] [place] [address] (10 min) Simple 01/14/2018 Patient Education: Patient [...] less controlled. 01/13/2018 Appointment: Karmen Espinal WPtel: [address] [place], [place] [phone] [place] [address] (15 min) Moderate 01/13/2018 Patient Education: Patient Medication Summary Completed 01/13/2018 Referral: Hugo Villatoro HPtel:[phone] [place] [address] Patient's informed. Referral info ned monroy. Completed 12/04/2017 Visit Plan: Diabetes Mellitus - con virgieed - per recent FSBS reports. I have [...] change in blood pressure readings at home. Itknpfdx-kklykm-hclob to see Dr Villatoro Constipation-start linzess daily 11/19/2017 Appointment: [facility]el[facility] [phone] [phone] [place] (30 min) Complex 11/19/2017 Patient Education: Patient Medication Summary Completed 11/19/2017 Care Plan: Referral Order bloating, nausea SNOMED-CT : [id number] Pending 11/19/2017 Visit Plan: Low back pain- [...] acute changes. 10/02/2017 Appointment: Brunilda Maravilla [facility]el[facility] [phone] [phone] [place] (15 min) Moderate 10/02/2017 Patient Education: [...] less controlled. 07/23/2017 Appointment: Karmen Espinal WPtel: [address] [place] [phone] (30 min) [facility] 07/23/2017 Patient Education: Patient Medication Summary Completed [...] history 04/25/2017 Appointment: [facility]inal [facility]el[facility] [phone] [phone] (30 min) Complex 04/25/2017 Patient Education: Patient [...] readings are starting to become less controlled. Xqvnwo-uhiybnm-dqpuk labs 02/19/2017 Appointment: [facility] Espinal [facility]Ptel[facility] [phone] [phone] (30 min) Complex 02/19/2017 Patient Education: Patient [...] 1 month 01/21/2017 Appointment: Karmen Espinal WPtel: [phone] (30 min) Complex 01/21/2017 Patient Education: Patient Medication Summary Completed 01/21/2017 Patient Education: Smoking and Tobacco Addiction Completed 01/21/2017 Patient Education: Hypertension Completed 01/21/2017 Care Plan: Referral Order SNOMED-CT : [id number] Pending 01/21/2017 Visit Plan: Diabetes Mellitus - [...] acute changes. 12/20/2016 Appointment: Karmen Espinal WPtel: [phone] (30 min) Complex 12/20/2016 Patient Education: Patient Medication Summary Completed 12/20/2016 Patient Education: Smoking and Tobacco Addiction Completed 12/20/2016 Patient Education: Hypertension Completed 12/20/2016 Appointment: Karmen Espinal WPtel: [phone] (30 min) Complex 09/06/2016 Visit Plan: Diabetes [...] d level 08/23/2016 Appointment: [facility] Espinal [facility]Ptel[facility] [phone] [phone] (30 min) Complex 08/23/2016 Patient Education: Patient Medication Summary Completed 08/23/2016 Patient Education: Smoking and Tobacco Addiction Completed 08/23/2016 Patient Education: Patient Medication Summary Completed 05/23/2016 Visit Plan: Diabetes Mellitus - con troxenaed - per recent FSBS reports. I have [...] acute changes. 05/22/2016 Appointment: [facility]inal [facility]el[facility] [phone] [phone] (30 min) Complex 05/22/2016 Patient Education: Patient Medication Summary Completed 05/22/2016 Patient Education: Smoking and Tobacco Addiction Completed 05/22/2016 Care Plan: Cbc With Differential Ordered 05/22/2016 Care Plan: %Hba1C KIKI C : 79038-4 Ordered 05/22/2016 Care Plan: Tsh Ordered 05/22/2016 [...] with update 02/24/2016 Appointment: Karmen Espinal WPtel[phone] (30 min) Complex 02/24/2016 Patient Education: Patient Medication Summary Completed 02/24/2016 Patient Education: Smoking and Tobacco Addiction Completed 02/24/2016 Patient Education: Hypertension Completed 02/24/2016 Visit Plan: Diabetes Mellitus - con purvilled - per recent FSBS reports. I have [...] this regimen. 01/27/2016 Appointment: Karmen Espinal [phone] (30 min) Complex 01/27/2016 Patient Education: Patient [...] use medication to assist cessation. [facility] Hyper[facility] - pt has been counseled about [...] Completed 05/06/2015 Visit Plan: COPD EXACERBATION - AIR BRAKE TESTER D is a chronic problem for this [...] POTENTIAL SIDE EFFECTS AND WORSENING OF SYMPTOMS. Swestbkl-rfyfrpbl-DNDE SIMVASTATIN X 2 WEEKS AND CALL WITH [...] Care Plan: COMPLETE CBC AUTOMATED LOINC : 57930-4 Ordered 03/24/2015 Visit Plan: Diabetes Mellitus - [...] for removal. 03/07/2015 Appointment: Violeta Ash WPtel: [address] [place], [place] [id number] (15 min) Moderate 03/07/2015 Patient Education: Patient [...] hearing. The wax was removed by the pra ctitioner due to the wax being more [...] Care Plan: COMPLETE CBC AUTOMATED LOINC : 31242-4 Ordered 12/23/2014 Visit Plan: BPPV - Benign [...] next appt 12/09/2014 Appointment: Karmen Espinal [facility]el[phone] [place] ([place] New Patient 12/09/2014 Patient Education: Patient Medication Summary Completed 12/09/2014 Patient Education: .Amazing charts Parox ysmal positional vertigo Completed 12/09/2014 Patient Education: Smoking and Tobacco Addiction Completed 12/09/2014 Referral: Hugo Villatoro [facility]:[phone] [id number] [place] Referral Appointment Requested Referral: Luis [...] readings are starting to become less controlled. Vyjtey-rfyiosj-elpmt labs . COPD -recent pneum onia-symptoms have [...] lesion today in the office-wound instructions provided Symbicort 2 puffs tw ice daily . [...] is stable, monitor for acute changes. . Cellulitis - start oral antibiotics as [...] to assure normal liver response to medications. decrease glipizide t o 5mg twice daily [...] . Diabetes Mellitus - controlled - per jared hall FSBS reports. I have recommended for the [...] change in blood pressure readings at home. Jgtpqvbv-xucpod-hkqxq to see Dr Villatoro Constipation-start linzess daily [...] is stable, monitor for acute changes. . Medicare Exam - to day we [...] her DOPA paperwork for health care surrogate. INCREASE LISINOPRIL TO 10MG TWICE DAILY RETURN [...] become less controlled. . Diabetes Mellitus - I have recommended [...] size of the lesion, increase in pain. MELATONIN FOR SLEEP -START WITH 3MG AT [...] change in blood pressure readings at home. Symbicort 2 puffs tw ice daily . [...] to assure normal liver response to medications. RETURN FOR LABS GAIL SOLA CONTINUOUS GLUCOSE MONITOR CHEST XRAY . COPD - chronic problem for this patien t. We have reviewed chronic treatment strategy, symptom control, and plans for acute exacerbations. No changes today to the current treatment plan as the patient is stable, monitor for acute changes. 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 Diabetes Mellitus - controlled [...] POTENTIAL SIDE EFFECTS AND WORSENING OF SYMPTOMS. Ymnuflzf-rpnlihho-DCRM SIMVASTATIN X 2 WEEKS AND CALL WITH UPDATE
[2020-03-29 07:31] VITALS: BP 193/87
--- OUTSIDE RECORDS SUMMARY | 2020-03-29 07:32 | XMS REPORT | CCD ---
Author Author Dick Espinal Organization Violeta Ash MD, [facility] Address [address] [place] [address] Phone Care Team Providers Care Body Specialist Name Role Phone PP Unavailable CCM Unavailable Summary Purpose Interface Exchange Insurance Providers Payer name Policy type / Coverage type Covered libertarian ID Effective Begin Date Effective End Date WPS Medicare Part B Medicare Part B [id number] Unknown Unknown [employer] [place] Medicare Part B [id number] Unknown Unknown Family history Father Diagnosis Age At Onset Cancer Unknown Mother Diagnosis Age At Onset Cancer Unknown Social History Social History Element Codes Description Effective Dates Number of cigarettes/day Unknown 20 (One Pack) 03/03/2019 Marital status Unknown M arried 12/09/2014 Employment Unknown Retir ed 12/09/[address]: 83253472 Currently smokes tobacco 12/09/2014 Number of years using tobacco Unknown > 50 12/09/[address]: 919583818 Never drinks alcohol 12/09/2014 Allergies, Adverse Reactions, [...] cypiona te 200 mg/mL intramuscular oil RxNorm: 0467242 Milliliter(s) IM 03/17/2019 03/17/2019 In active hydrocodone 5 mg-linh taminophen 325 mg tablet RxNorm: 060902 1 Tablet(s) PO Q6-8H as needed 03/17/2019 04/10/2019 Active Toujeo SoloStar U-30 0 Insulin 300 unit/mL (1.5 mL) subcutaneous pen RxNorm: 4193802 35 Unit(s) SQ QHS 03/05/2019 07/02/2019 Active Dosage change! testosterone cypiona te 200 mg/mL intramuscular oil RxNorm: 9826438 1/2 Milliliter(s) IM 03/04/2019 03/04/2019 Inactive Toujeo SoloStar U-30 0 Insulin 300 unit/mL (1.5 mL) subcutaneous pen RxNorm: 2849205 30 Unit(s) SQ QHS 03/03/2019 03/04/2019 Inactive Xanax 0.5 mg tablet RxNorm: 479452 Tablet(s) as needed TAKE ONE TABLET BY M OUTH THREE TIMES A DAY 02/19/2019 04/19/2019 Active Xanax 0.5 mg tablet RxNorm: 729768 Tablet(s) TAKE ONE TABLET BY MOUTH THREE TIMES A DAY 02/19/2019 02/18/2019 Inactive hydrocodone 5 mg-linh taminophen 325 mg tablet RxNorm: 555595 1 Tablet(s) PO Q6-8H as needed 02/16/2019 03/12/2019 Inactive testosterone cypiona te 200 mg/mL intramuscular oil RxNorm: 1969402 Milliliter(s) IM 02/16/2019 02/16/2019 In active Protonix 40 mg table t,delayed release RxNorm: 147483 TAKE 1 TABLET BY MOUT H DAILY 02/02/2019 01/27/2020 Ac tive - Ref: [id number] simvastatin 40 mg ta blet RxNorm: 894218 TAKE 1 TABLET BY MOUT H DAILY AT BEDTIME 02/02/2019 01/27/2020 Ac tive - Ref: [id number] testosterone cypiona te 200 mg/mL intramuscular oil RxNorm: 1090372 Milliliter(s) IM 01/30/2019 01/30/2019 In active testosterone cypiona te 200 mg/mL intramuscular oil RxNorm: 3156907 1/2 Milliliter(s) IM [id number] 01/16/2019 05/15/2019 Active testosterone cypiona te 200 mg/mL intramuscular oil RxNorm: 8976094 Milliliter(s) IM 01/16/2019 01/16/2019 In active hydrocodone 5 mg-linh taminophen 325 mg tablet RxNorm: 806975 1 Tablet(s) PO Q6-8H as needed 01/14/2019 02/07/2019 Inactive testosterone cypiona te 200 mg/mL intramuscular oil RxNorm: 1566927 Milliliter(s) IM 01/01/2019 01/01/2019 In active Xanax 0.5 mg tablet RxNorm: 977207 1 Tablet(s) PO TID 12/18/2018 02/14/2019 Inactive testosterone cypiona te 200 mg/mL intramuscular oil RxNorm: 0609343 Milliliter(s) IM 12/17/2018 12/17/2018 In active hydrocodone 5 mg-linh taminophen 325 mg tablet RxNorm: 981317 1 Tablet(s) PO Q6-8H as needed 12/15/2018 01/08/2019 Inactive testosterone cypiona te 200 mg/mL intramuscular oil RxNorm: 5258040 Milliliter(s) IM 12/02/2018 12/02/2018 In active testosterone cypiona te 200 mg/mL intramuscular oil RxNorm: 0407605 Milliliter(s) IM 11/18/2018 11/18/2018 In active hydrocodone 5 mg-linh taminophen 325 mg tablet RxNorm: 196662 1 Tablet(s) PO Q6-8H as needed 11/13/2018 12/07/2018 Inactive testosterone cypiona te 200 mg/mL intramuscular oil RxNorm: 6441419 1/2 Milliliter(s) IM [id number] 11/04/2018 01/15/2019 Inactive testosterone cypiona te 200 mg/mL intramuscular oil RxNorm: 9246380 Milliliter(s) IM 11/04/2018 11/04/2018 In active nicotine 21 mg/24 hr daily transdermal patch RxNorm: 313115 1 TD daily 10/31/2018 10/30/2018 In active nicotine 21 mg/24 hr daily transdermal patch RxNorm: 892740 1 TD daily 10/31/2018 11/29/2018 In active meclizine 25 mg tablet RxNorm: 251521 1 Tablet(s) PO Q6 PRN TAKE ONE TABLET BY MOUTH EVERY 6 HOURS NEEDED 10/17/2018 01/14/2019 Inactive hydrocodone 5 mg-linh taminophen 325 mg tablet RxNorm: 732745 1 Tablet(s) PO Q6-8H as needed 10/17/2018 11/10/2018 Inactive metformin 500 mg tablet RxNorm: 176017 Tablet(s) TAKE 1 TABLET BY MOUTH DAILY 10/15/2018 10/09/2019 Ac tive lisinopril 10 mg tablet RxNorm: 370221 TAKE 1 TABLET BY MOUTH TWO TIMES DAILY 10/15/2018 10/09/2019 Ac tive - First Attempt Ref: [id number] testosterone cypiona te 200 mg/mL intramuscular oil RxNorm: 1143304 Milliliter(s) IM 10/14/2018 10/14/2018 In active Xanax 0.5 mg tablet RxNorm: 900872 1 Tablet(s) PO TID 10/03/2018 11/30/2018 Inactive testosterone cypiona te 200 mg/mL intramuscular oil RxNorm: 2910365 1/2 Milliliter(s) IM weekly 10/03/2018 11/03/2018 Inactive testosterone cypiona te 200 mg/mL intramuscular oil RxNorm: 3149313 Milliliter(s) IM 10/03/2018 10/03/2018 In active testosterone cypiona te 200 mg/mL intramuscular oil RxNorm: 9107144 Milliliter(s) IM 09/23/2018 09/23/2018 In active hydrocodone 5 mg-linh taminophen 325 mg tablet RxNorm: 929347 1 Tablet(s) PO Q6-8H as needed 09/22/2018 10/16/2018 Inactive testosterone cypiona te 200 mg/mL intramuscular oil RxNorm: 8027777 1/2 Milliliter(s) IM 09/02/2018 09/02/2018 Inactive testosterone enantha te 200 mg/mL intramuscular oil RxNorm: 857718 Milliliter(s) IM 08/21/2018 08/21/2018 In active hydrocodone 5 mg-linh taminophen 325 mg tablet RxNorm: 241220 1 Tablet(s) PO Q6-8H as needed 08/21/2018 09/14/2018 Inactive testosterone cypiona te 200 mg/mL intramuscular oil RxNorm: 0561882 Milliliter(s) IM 08/08/2018 08/08/2018 In active testosterone cypiona te 200 mg/mL intramuscular oil RxNorm: 9812230 1/2 Milliliter(s) IM 07/28/2018 07/28/2018 Inactive hydrocodone 5 mg-linh taminophen 325 mg tablet RxNorm: 381915 1 Tablet(s) PO Q6-8H as needed 07/21/2018 08/14/2018 Inactive testosterone cypiona te 200 mg/mL intramuscular oil RxNorm: 527545 Milliliter(s) IM 07/16/2018 07/16/2018 In active testosterone cypiona te 200 mg/mL intramuscular oil RxNorm: 814305 Milliliter(s) IM 07/02/2018 07/02/2018 In active Xanax 0.5 mg tablet RxNorm: 101889 1 Tablet(s) PO TID 06/27/2018 08/24/2018 Inactive testosterone cypiona te 200 mg/mL intramuscular oil RxNorm: 388008 Milliliter(s) IM 06/24/2018 06/24/2018 In active hydrocodone 5 mg-linh taminophen 325 mg tablet RxNorm: 645884 1 Tablet(s) PO Q6-8H as needed 06/23/2018 07/17/2018 Inactive testosterone cypiona te 200 mg/mL intramuscular oil RxNorm: 809521 Milliliter(s) IM 06/13/2018 06/13/2018 In active testosterone cypiona te 200 mg/mL intramuscular oil RxNorm: 393276 Milliliter(s) IM 06/05/2018 06/05/2018 In active testosterone cypiona te 200 mg/mL intramuscular oil RxNorm: 9836869 1/2 Milliliter(s) IM weekly 05/30/2018 09/26/2018 Inactive testosterone cypiona te 200 mg/mL intramuscular oil RxNorm: 831602 Milliliter(s) IM 05/30/2018 05/30/2018 In active testosterone cypiona te 200 mg/mL intramuscular oil RxNorm: 541720 Milliliter(s) IM 05/22/2018 05/22/2018 In active hydrocodone 5 mg-linh taminophen 325 mg tablet RxNorm: 511351 1 Tablet(s) PO Q6-8H as needed 05/20/2018 06/13/2018 Inactive testosterone cypiona te 200 mg/mL intramuscular oil RxNorm: 910036 1/2 Milliliter(s) IM 05/12/2018 05/12/2018 Inactive testosterone cypiona te 200 mg/mL intramuscular oil RxNorm: 380472 Milliliter(s) IM 05/02/2018 05/02/2018 In active testosterone cypiona te 200 mg/mL intramuscular oil RxNorm: 179232 1/2 Milliliter(s) IM weekly 04/24/2018 05/29/2018 Inactive testosterone cypiona te 200 mg/mL intramuscular oil RxNorm: 260643 0.5 Milliliter(s) IM 04/24/2018 04/24/2018 Inactive hydrocodone 5 mg-linh taminophen 325 mg tablet RxNorm: 890986 1 Tablet(s) PO Q6-8H as needed 04/22/2018 05/16/2018 Inactive testosterone cypiona te 200 mg/mL intramuscular oil RxNorm: 702174 1/2 Milliliter(s) IM 04/17/2018 04/17/2018 Inactive testosterone cypiona te 200 mg/mL intramuscular oil RxNorm: 909748 1/2 Milliliter(s) IM weekly 04/16/2018 04/23/2018 Inactive Jardiance 10 mg tablet RxNorm: 0185895 1 Tablet(s) PO daily 04/04/2018 12/29/2018 Inactive testosterone cypiona te 200 mg/mL intramuscular oil RxNorm: 444765 1 Milliliter(s) IM monthly 04/04/2018 04/15/2018 Inactive Protonix 40 mg table t,delayed release RxNorm: 791753 1 Tablet(s) PO daily TAKE 1 TABLET BY MOUTH DAILY 04/04/2018 02/01/2019 Inactive - Ref: [id number] hydrocodone 5 mg-linh taminophen 325 mg tablet RxNorm: 105591 1 Tablet(s) PO Q6-8H as needed 03/19/2018 04/12/2018 Inactive Flomax 0.4 mg capsule RxNorm: 122514 1 Capsule(s) PO daily 03/10/2018 03/04/2019 Inactive Urecholine 25 mg tablet RxNorm: 180481 1 Tablet(s) PO BID 03/10/2018 07/07/2018 Inactive ketorolac 60 mg/2 mL intramuscular solution RxNorm: 4648420 Milliliter(s) IM 03/07/2018 03/07/2018 In active metformin 500 mg tablet RxNorm: 617515 Tablet(s) TAKE 1 TABLET BY MOUTH DAILY 02/20/2018 02/13/2019 In active 1 q am and 1/2 tab q pm hydrocodone 5 mg-linh taminophen 325 mg tablet RxNorm: 085364 1 Tablet(s) PO Q6-8H as needed 02/20/2018 03/16/2018 Inactive Kenalog 40 mg/mL bartolome pension for injection RxNorm: 8346685 1.5 Milliliter(s) In j 01/30/2018 01/30/2018 In active hydrocodone 5 mg-linh taminophen 325 mg tablet RxNorm: 705509 1 Tablet(s) PO Q6-8H as needed 01/23/2018 02/16/2018 Inactive Urecholine 25 mg tablet RxNorm: 548968 1 Tablet(s) PO BID 01/22/2018 03/09/2018 Inactive Flomax 0.4 mg capsule RxNorm: 428718 1 Capsule(s) PO daily 01/22/2018 03/09/2018 Inactive Flomax 0.4 mg capsule RxNorm: 411537 1 Capsule(s) PO daily 01/22/2018 01/21/2018 Inactive Urecholine 25 mg tablet RxNorm: 388598 1 Tablet(s) PO BID 01/22/2018 01/21/2018 Inactive testosterone cypiona te 200 mg/mL intramuscular oil RxNorm: 102280 Milliliter(s) IM 01/17/2018 01/17/2018 In active testosterone cypiona te 200 mg/mL intramuscular oil RxNorm: 348244 1 Milliliter(s) IM monthly 01/17/2018 04/03/2018 Inactive doxycycline hyclate 100 mg tablet RxNorm: 531255 1 Tablet(s) PO BID 01/14/2018 01/23/2018 Inactive lisinopril 10 mg tablet RxNorm: 663607 TAKE 1 TABLET BY MOUTH TWO TIMES DAILY 01/14/2018 10/14/2018 In active - First Attempt Ref: [id number] nystatin 100,000 uni t/mL oral suspension RxNorm: 296421 4 Milliliter(s) PO QI D Swish and swallow 01/08/2018 01/07/2018 Inactive nystatin 100,000 uni t/mL oral suspension RxNorm: 459300 4 Milliliter(s) PO QI D Swish and swallow 01/08/2018 01/12/2018 Inactive Xanax 0.5 mg tablet RxNorm: 402566 1 Tablet(s) PO TID 01/08/2018 12/23/2018 Inactive simvastatin 40 mg ta blet RxNorm: 933666 TAKE 1 TABLET BY MOUT H DAILY AT BEDTIME 12/30/2017 12/24/2018 In active - First Attempt Ref: [id number] metformin 500 mg tablet RxNorm: 138267 TAKE 1 TABLET BY MOUTH DAILY 12/30/2017 02/19/2018 Inactive - First Attempt Ref: [id number] hydrocodone 5 mg-linh taminophen 325 mg tablet RxNorm: 560887 1 Tablet(s) PO Q6-8H as needed 12/25/2017 01/18/2018 Inactive Protonix 40 mg table t,delayed release RxNorm: 758251 Tablet(s) TAKE 1 TABL ET BY MOUTH DAILY 11/20/2017 04/03/2018 Inactive - Ref: [id number] Linzess 72 mcg capsule RxNorm: 2328488 1 Capsule(s) PO daily 11/19/2017 No Stop Date Active hydrocodone 5 mg-linh taminophen 325 mg tablet RxNorm: 513688 1 Tablet(s) PO Q6-8H as needed 11/19/2017 12/13/2017 Inactive hydrocodone 5 mg-linh taminophen 325 mg tablet RxNorm: 641309 1 Tablet(s) PO Q6-8H as needed 10/28/2017 11/18/2017 Inactive Xanax 0.5 mg tablet RxNorm: 824759 1 Tablet(s) PO TID 10/25/2017 12/22/2017 Inactive Xanax 0.5 mg tablet RxNorm: 760733 TAKE ONE TABLET BY MOUTH THREE TIMES A D AY 10/24/2017 12/01/2018 In active hydrocodone 5 mg-linh taminophen 325 mg tablet RxNorm: 178895 1 Tablet(s) PO Q6-8H as needed 09/30/2017 10/24/2017 Inactive Protonix 40 mg table t,delayed release RxNorm: 764106 TAKE 1 TABLET BY MOUT H DAILY 09/16/2017 11/19/2017 In active - Ref: [id number] Pericoanuj Maddie 300 unit/mL (1.5 mL) subcutaneous insulin pen RxNorm: 4173640 35 Unit(s) SQ QHS 08/30/2017 03/02/2019 Inactive dosage increase hydrocodone 5 mg-linh taminophen 325 mg tablet RxNorm: 701731 1 Tablet(s) PO Q6-8H as needed 08/28/2017 09/29/2017 Inactive hydrocodone 5 mg-linh taminophen 325 mg tablet RxNorm: 754554 1 Tablet(s) PO Q6-8H as needed 07/23/2017 08/24/2017 Inactive lisinopril 10 mg tablet RxNorm: 526416 1 Tablet(s) PO BID Take 1 tablet by mout h daily 07/23/2017 01/13/2018 Inactive hydrocodone 5 mg-linh taminophen 325 mg tablet RxNorm: 563014 1 Tablet(s) PO Q6-8H as needed 06/27/2017 07/22/2017 Inactive Xanax 0.5 mg tablet RxNorm: 119974 1 Tablet(s) PO TID 06/18/2017 10/25/2017 Inactive hydrocodone 5 mg-linh taminophen 325 mg tablet RxNorm: 001131 1 Tablet(s) PO Q6-8H as needed 05/27/2017 06/26/2017 Inactive Levaquin 500 mg tablet RxNorm: 483684 1 Tablet(s) PO daily 05/24/2017 05/23/2017 Inactive Levaquin 500 mg tablet RxNorm: 064932 1 Tablet(s) PO daily 05/24/2017 05/30/2017 Inactive Protonix 40 mg table t,delayed release RxNorm: 466254 Take 1 tablet by mout h daily 04/29/2017 09/15/2017 In active - Ref: [id number] hydrocodone 5 mg-linh taminophen 325 mg tablet RxNorm: 164707 1 Tablet(s) PO Q6-8H as needed 04/25/2017 05/26/2017 Inactive metformin 500 mg tablet RxNorm: 511439 Take 1 tablet by mouth daily 04/08/2017 12/29/2017 Inactive - First Attempt Ref: [id number] hydrocodone 5 mg-linh taminophen 325 mg tablet RxNorm: 522425 1 Tablet(s) PO Q6-8H as needed 03/27/2017 04/24/2017 Inactive hydrocodone 5 mg-linh taminophen 325 mg tablet RxNorm: 221226 1 Tablet(s) PO Q6-8H as needed 02/25/2017 03/26/2017 Inactive Protonix 40 mg table t,delayed release RxNorm: 107135 Tablet(s) Take 1 tabl et by mouth BID 02/25/2017 04/28/2017 Inactive Protonix 40 mg table t,delayed release RxNorm: 632433 Tablet(s) Take 1 tabl et by mouth BID 02/19/2017 02/18/2017 Inactive Protonix 40 mg table t,delayed release RxNorm: 635424 Tablet(s) Take 1 tabl et by mouth BID 02/19/2017 02/24/2017 Inactive lisinopril 10 mg tablet RxNorm: 293778 Take 1 tablet by mouth daily 01/29/2017 07/22/2017 Inactive - First Attempt Ref: [id number] hydrocodone 5 mg-linh taminophen 325 mg tablet RxNorm: 924692 1 Tablet(s) PO Q6-8H as needed 01/25/2017 02/24/2017 Inactive simvastatin 40 mg ta blet RxNorm: 035881 Tablet(s) Take 1 tabl et by mouth daily at bedtime 01/03/2017 12/28/2017 Inactive lisinopril 10 mg tablet RxNorm: 914646 Tablet(s) Take 1 tablet by mouth daily 01/03/2017 01/28/2017 In active Protonix 40 mg table t,delayed release RxNorm: 580319 Tablet(s) Take 1 tabl et by mouth daily 12/28/2016 02/18/2017 Inactive hydrocodone 5 mg-linh taminophen 325 mg tablet RxNorm: 773614 1 Tablet(s) PO Q6-8H as needed 12/26/2016 01/24/2017 Inactive Xanax 0.5 mg tablet RxNorm: 251958 1 Tablet(s) PO TID 12/12/2016 03/11/2017 Inactive simvastatin 40 mg ta blet RxNorm: 249129 Tablet(s) Take 1 tabl et by mouth daily at bedtime 11/30/2016 01/02/2017 Inactive simvastatin 40 mg ta blet RxNorm: 772885 Take 1 tablet by mout h daily at bedtime 11/29/2016 11/29/2016 In active - First Attempt Ref: [id number] Protonix 40 mg table t,delayed release RxNorm: 709479 Take 1 tablet by mout h daily 11/27/2016 12/27/2016 In active - First Attempt Ref: [id number] hydrocodone 5 mg-linh taminophen 325 mg tablet RxNorm: 932365 1 Tablet(s) PO Q6-8H as needed 11/26/2016 12/25/2016 Inactive hydrocodone 5 mg-linh taminophen 325 mg tablet RxNorm: 119154 1 Tablet(s) PO Q8 as needed 10/24/2016 11/25/2016 Inactive Xanax 0.5 mg tablet RxNorm: 599759 1 Tablet(s) PO TID 10/09/2016 12/25/2016 Inactive hydrocodone 5 mg-linh taminophen 325 mg tablet RxNorm: 517303 1 Tablet(s) PO Q8 as needed 09/27/2016 10/23/2016 Inactive lisinopril 10 mg tablet RxNorm: 772710 Take 1 tablet by mouth daily 09/25/2016 01/02/2017 Inactive - First Attempt Ref: [id number] Vitamin D2 50,000 un it capsule RxNorm: 190087 1 Capsule(s) PO QW 09/06/2016 12/01/2018 Inactive hydrocodone 5 mg-linh taminophen 325 mg tablet RxNorm: 402728 1 Tablet(s) PO Q8 as needed 08/28/2016 09/26/2016 Inactive Toujeo SoloStar 300 unit/mL (1.5 mL) subcutaneous insulin pen RxNorm: 1863410 25 Unit(s) SQ QHS 08/23/2016 08/29/2017 Inactive dosage increase hydrocodone 5 mg-linh taminophen 325 mg tablet RxNorm: 651988 1 Tablet(s) PO Q8 as needed 07/26/2016 08/27/2016 Inactive Protonix 40 mg table t,delayed release RxNorm: 054670 Take 1 tablet by mout h daily 07/24/2016 11/26/2016 In active - First Attempt Ref: [id number] hydrocodone 5 mg-linh taminophen 325 mg tablet RxNorm: 104412 1 Tablet(s) PO Q8 as needed 06/19/2016 07/21/2016 Inactive Tojanie SoloStar 300 unit/mL (1.5 mL) subcutaneous insulin pen RxNorm: 4120874 32 Unit(s) SQ QHS 05/30/2016 08/22/2016 Inactive dosage increase hydrocodone 5 mg-linh taminophen 325 mg tablet RxNorm: 551939 1 Tablet(s) PO Q8 as needed 05/22/2016 06/18/2016 Inactive hydrocodone 5 mg-linh taminophen 325 mg tablet RxNorm: 446240 1 Tablet(s) PO Q8 as needed 04/18/2016 05/17/2016 Inactive Protonix 40 mg table t,delayed release RxNorm: 590833 Take 1 tablet by mout h daily 04/05/2016 07/03/2016 In active - Ref: [id number] metformin 500 mg tablet RxNorm: 498150 Take 1 tablet by mouth daily 04/04/2016 07/02/2016 Inactive - Ref: [id number] Xanax 0.5 mg tablet RxNorm: 113182 1 Tablet(s) PO TID 03/30/2016 09/25/2016 Inactive Xanax 0.5 mg tablet RxNorm: 749392 1 Tablet(s) PO TID 03/23/2016 12/25/2016 Inactive hydrocodone 5 mg-linh taminophen 325 mg tablet RxNorm: 201056 1 Tablet(s) PO Q8 as needed 03/06/2016 04/04/2016 Inactive Cipro 500 mg tablet RxNorm: 032474 1 Tablet(s) PO BID 02/24/2016 03/04/2016 Inactive Miralax 17 gram oral powder packet RxNorm: 620240 1 packet PO every oth er day 01/27/2016 No Stop Date Active hydrocodone 5 mg-linh taminophen 325 mg tablet RxNorm: 166896 1 Tablet(s) PO Q8 as needed 01/27/2016 02/25/2016 Inactive lisinopril 10 mg tablet RxNorm: 673239 1 Tablet(s) PO daily 01/12/2016 09/24/2016 Inactive simvastatin 40 mg ta blet RxNorm: 002873 1 Tablet(s) PO QHS 01/12/2016 11/28/2016 Inactive simvastatin 40 mg ta blet RxNorm: 193313 1 Tablet(s) PO QHS 01/11/2016 01/11/2016 Inactive lisinopril 10 mg tablet RxNorm: 898645 1 Tablet(s) PO daily 01/06/2016 01/11/2016 Inactive simvastatin 40 mg ta blet RxNorm: 737142 1 Tablet(s) PO daily 12/28/2015 01/10/2016 Inactive hydrocodone 5 mg-linh taminophen 325 mg tablet RxNorm: 765887 1 Tablet(s) PO Q8 as needed 12/27/2015 01/26/2016 Inactive Xanax 0.5 mg tablet RxNorm: 542784 1 Tablet(s) PO TID 11/30/2015 03/29/2016 Inactive Toujeo SoloStar 300 unit/mL (1.5 mL) subcutaneous insulin pen RxNorm: 8538790 30 Unit(s) SQ QHS 11/25/2015 05/29/2016 Inactive dosage increase meclizine 25 mg tablet RxNorm: 979859 1 Tablet(s) PO Q6 PRN TAKE ONE TABLET BY MOUTH EVERY 6 HOURS NEEDED 11/25/2015 02/22/2016 Inactive omeprazole 20 mg cap jacquelyn,delayed release RxNorm: 332781 1 Capsule(s) PO daily 10/06/2015 01/26/2016 In active Toujeo SoloStar 300 unit/mL (1.5 mL) subcutaneous insulin pen RxNorm: 0885860 35 Unit(s) SQ QHS 08/02/2015 11/24/2015 Inactive dosage increase Vitamin D2 50,000 un it capsule RxNorm: 961697 1 Capsule(s) PO QW 08/02/2015 09/05/2016 Inactive hydrocodone 5 mg-linh taminophen 325 mg tablet RxNorm: 006231 1 Tablet(s) PO Q8 as needed 07/11/2015 12/26/2015 Inactive Xanax 0.5 mg tablet RxNorm: 607992 1 Tablet(s) PO TID 06/30/2015 06/29/2015 Inactive Xanax 0.5 mg tablet RxNorm: 965970 1 Tablet(s) PO TID 06/30/2015 12/25/2015 Inactive hydrocodone 5 mg-linh taminophen 325 mg tablet RxNorm: 450801 1 Tablet(s) PO Q8 as needed 05/06/2015 07/10/2015 Inactive Symbicort 160 mcg-4. 5 mcg/actuation HFA aerosol inhaler RxNorm: 1688711 INH 04/25/2015 No Stop Date Active Levemir FlexTouch 10 0 unit/mL (3 mL) subcutaneous insulin pen RxNorm: 715114 30 Unit(s) SQ QHS 04/25/2015 11/24/2015 Inactive prednisone 20 mg tablet RxNorm: 332218 1 Tablet(s) PO BID 04/25/2015 04/29/2015 Inactive metformin 500 mg tablet RxNorm: 739624 1 Tablet(s) PO daily 04/25/2015 04/03/2016 Inactive amoxicillin 500 mg c apsule RxNorm: 165631 1 Capsule(s) PO TID 04/14/2015 04/13/2015 Inactive amoxicillin 500 mg c apsule RxNorm: 309245 1 Capsule(s) PO TID a nd recommend probiotic tid (otc) 04/14/2015 04/20/2015 Inactive Kenalog 40 mg/mL bartolome pension for injection RxNorm: 1208490 Milliliter(s) Inj 04/12/2015 04/12/2015 In active hydrocodone 5 mg-linh taminophen 325 mg tablet RxNorm: 324948 1 Tablet(s) PO Q8 as needed 03/30/2015 05/05/2015 Inactive Lantus 100 unit/mL s ubcutaneous solution RxNorm: 429988 25 Unit(s) SQ QPM 03/24/2015 04/25/2015 In active meclizine 25 mg tablet RxNorm: 507139 Tablet(s) TAKE ONE TABLET BY MOUTH EVERY 6 HOURS NEEDED 03/08/2015 04/06/2015 Inactive meclizine 25 mg tablet RxNorm: 955209 TAKE ONE TABLET BY MOUTH EVERY 6 HOURS A S NEEDED 02/25/2015 03/03/2015 Inactive Lantus 100 unit/mL s ubcutaneous solution RxNorm: 982251 20 Unit(s) SQ QPM 02/23/2015 03/23/2015 In active Lantus 100 unit/mL s ubcutaneous solution RxNorm: 152877 25 Unit(s) SQ QPM 02/23/2015 02/22/2015 In active hydrocodone 5 mg-linh taminophen 325 mg tablet RxNorm: 654641 1 Tablet(s) PO Q8 as needed 02/17/2015 03/29/2015 Inactive Xanax 0.5 mg tablet RxNorm: 878211 1 Tablet(s) PO TID 02/03/2015 06/29/2015 Inactive Lantus 100 unit/mL s ubcutaneous solution RxNorm: 656551 20 Unit(s) SQ QPM 12/29/2014 02/22/2015 In active Phenergan 12.5 mg re ctal suppository RxNorm: 275782 1 Suppository RTL Q6 PRN 12/23/2014 No Stop Date Active nausea Kenalog 40 mg/mL bartolome pension for injection RxNorm: 7361702 Milliliter(s) Inj 12/23/2014 12/23/2014 In active prednisone 20 mg tablet RxNorm: 357759 2 Tablet(s) PO daily 12/13/2014 12/17/2014 Inactive prednisone 20 mg tablet RxNorm: 769187 2 Tablet(s) PO daily 12/13/2014 12/12/2014 Inactive meclizine 25 mg tablet RxNorm: 938126 1 Tablet(s) PO Q6 PRN 12/09/2014 02/24/2015 Inactive hydrocodone 5 mg-linh taminophen 325 mg tablet RxNorm: 238303 1 Tablet(s) PO Q8 as needed 12/09/2014 02/16/2015 Inactive Vitamin B-12 1,000 m cg/mL oral drops RxNorm: 3685013 1 Milliliter(s) PO d aily No Start Date Active Alphagan P 0.1 % eye drops RxNorm: 637075 1 Drop(s) OPH BID No Start Date Active aspirin 325 mg table t,delayed release RxNorm: 703617 1 Tablet(s) PO daily No Start Date Active Tricor 145 mg tablet RxNorm: 200257 1 Tablet(s) PO daily No Start Date Active vitamin O12-ktleawq B1 oral liquid RxNorm: 1,000 Microgram(s) PO daily No Start Date Active atenolol 50 mg tablet RxNorm: 643446 1 Tablet(s) PO daily No Start Date Active Protonix 40 mg table t,delayed release RxNorm: 692952 1 Tablet(s) PO daily No Start Date 04/04/2016 Inactive glipizide 10 mg tablet RxNorm: 956753 1 Tablet(s) PO BID No Start Date 03/22/2015 Inactive Lantus 100 unit/mL s ubcutaneous solution RxNorm: 917587 15 Unit(s) SQ QPM No Start Date 12/28/2014 Inactive lisinopril 10 mg tablet RxNorm: 435305 1 Tablet(s) PO daily No Start Date 01/05/2016 Inactive Vitamin D2 50,000 un it capsule RxNorm: 075927 1 Capsule(s) PO QW No Start Date 08/01/2015 Inactive Toujeo SoloStar 300 unit/mL (1.5 mL) subcutaneous insulin pen RxNorm: 6153827 30 Unit(s) SQ QHS No Start Date 08/01/2015 Inactive simvastatin 40 mg ta blet RxNorm: 045315 1 Tablet(s) PO daily No Start Date 12/27/2015 Inactive testosterone cypiona te 200 mg/mL intramuscular oil RxNorm: 969805 1 Milliliter(s) IM monthly No Start Date 01/16/2018 Inactive hydrocodone 5 mg-linh taminophen 325 mg tablet RxNorm: 137932 1 Tablet(s) PO Q8 as needed No Start Date 12/08/2014 Inactive metformin 500 mg tablet RxNorm: 777932 1 Tablet(s) PO daily No Start Date 04/24/2015 Inactive omeprazole 20 mg cap jacquelyn,delayed release RxNorm: 838390 1 Capsule(s) PO daily No Start Date 10/05/2015 Inactive Flomax 0.4 mg capsule RxNorm: 322471 1 Capsule(s) PO daily No Start Date 03/23/2015 Inactive Medication Administered Medication Codes Instruc tions Start Date Status testosterone cypionate 200 mg/mL intramuscular oil RxNorm: 3826543 Milliliter 03/17/2019 Active testosterone cypionate 200 mg/mL intramuscular oil RxNorm: 4454517 1/2Milliliter 03/04/2019 No longer Active testosterone cypionate 200 mg/mL intramuscular oil RxNorm: 4230991 Milliliter 02/16/2019 No longer Active testosterone cypionate 200 mg/mL intramuscular oil RxNorm: 1070560 Milliliter 01/30/2019 No longer Active testosterone cypionate 200 mg/mL intramuscular oil RxNorm: 9196225 Milliliter 01/16/2019 No longer Active testosterone cypionate 200 mg/mL intramuscular oil RxNorm: 8770020 Milliliter 01/01/2019 No longer Active testosterone cypionate 200 mg/mL intramuscular oil RxNorm: 8761351 Milliliter 12/17/2018 No longer Active testosterone cypionate 200 mg/mL intramuscular oil RxNorm: 8593525 Milliliter 12/02/2018 No longer Active testosterone cypionate 200 mg/mL intramuscular oil RxNorm: 5012303 Milliliter 11/18/2018 No longer Active testosterone cypionate 200 mg/mL intramuscular oil RxNorm: 2446835 Milliliter 11/04/2018 No longer Active testosterone cypionate 200 mg/mL intramuscular oil RxNorm: 8673158 Milliliter 10/14/2018 No longer Active testosterone cypionate 200 mg/mL intramuscular oil RxNorm: 3415873 Milliliter 10/03/2018 No longer Active testosterone cypionate 200 mg/mL intramuscular oil RxNorm: 4238608 Milliliter 09/23/2018 No longer Active testosterone cypionate 200 mg/mL intramuscular oil RxNorm: 8138392 /2Milliliter 09/02/2018 No longer Active testosterone enanthate 200 mg/mL intramuscular oil RxNorm: 399419 Milliliter 08/21/2018 No longer Active testosterone cypionate 200 mg/mL intramuscular oil RxNorm: 4191272 Milliliter 08/08/2018 No longer Active testosterone cypionate 200 mg/mL intramuscular oil RxNorm: 6314275 /2Milliliter 07/28/2018 No longer Active testosterone cypionate 200 mg/mL intramuscular oil RxNorm: 833721 Milliliter 07/16/2018 No longer Active testosterone cypionate 200 mg/mL intramuscular oil RxNorm: 037280 Milliliter 07/02/2018 No longer Active testosterone cypionate 200 mg/mL intramuscular oil RxNorm: 759718 Milliliter 06/24/2018 No longer Active testosterone cypionate 200 mg/mL intramuscular oil RxNorm: 670141 Milliliter 06/13/2018 No longer Active testosterone cypionate 200 mg/mL intramuscular oil RxNorm: 248825 Milliliter 06/05/2018 No longer Active testosterone cypionate 200 mg/mL intramuscular oil RxNorm: 083722 Milliliter 05/30/2018 No longer Active testosterone cypionate 200 mg/mL intramuscular oil RxNorm: 941884 Milliliter 05/22/2018 No longer Active testosterone cypionate 200 mg/mL intramuscular oil RxNorm: 120771 /2Milliliter 05/12/2018 No longer Active testosterone cypionate 200 mg/mL intramuscular oil RxNorm: 765799 Milliliter 05/02/2018 No longer Active testosterone cypionate 200 mg/mL intramuscular oil RxNorm: 601945 0.5Milliliter 04/24/2018 No longer Active testosterone cypionate 200 mg/mL intramuscular oil RxNorm: 426183 1/2Milliliter 04/17/2018 No longer Active ketorolac 60 mg/2 mL intramuscular solution RxNorm: 9768601 Milliliter 03/07/2018 No longer Active Kenalog 40 mg/mL suspension for injection RxNorm: 2126322 1.5Milliliter 01/30/2018 No longer Active testosterone cypionate 200 mg/mL intramuscular oil RxNorm: 081409 Milliliter 01/17/2018 No longer Active Kenalog 40 mg/mL suspension for injection RxNorm: 4250269 Milliliter 04/12/2015 No longer Active Kenalog 40 mg/mL suspension for injection RxNorm: 5271505 Milliliter 12/23/2014 No longer Active Immunizations Vaccine Codes Date Status Influenza CVX: 141 06/06 completed Influenza CVX: 141 04/25 completed Pneumococcal (Adult) CVX: 133 04/25/2017 completed Influenza CVX: 141 05/22 completed Assessments Condition Codes Effectiv e Dates Testicular dysfunction, unspecified ICD-10: E29.9 ICD-9: 257.9 03/17/2019 Anemia, unspecified ICD-10: D64.9 ICD-9: 285.9 03/05/2019 [...] Code Item Item Code Result Date B12 Wyu275 B12 432.00 pg/ml 03/05/2019 %Hba1C Ogj060 % HbA1c 67587-0 7.9 % 03/04/2019 %Hba1C Qxa596 Gluc Ave 180 mg/dL 03/04/2019 Testosterone Xpc100 Testo 142.2 ng/dL 03/04/2019 Cbc With Differential [...] 33.6 pg 03/04/2019 Cbc With Differential Ord2 [place]% 6.9 % 03/04/2019 Cbc With Differential Ord2 [...] 2.56 K/ul 03/04/2019 Cbc With Differential Ord2 [place] ABS# 0.5 K/ul 03/04/2019 Cbc With Differential Ord2 Eos ABS# 0.4 K/ul 03/04/2019 Cbc With Differential Ord2 Baso ABS# 0.0 K/ul 03/04/2019 Lipid Ord30 CHOL 114 mg/dL 03/04/2019 Lipid Ord30 HDL 25.0 mg/dl 03/04/2019 Lipid Ord30 TRIG 119 mg/dL 03/04/2019 Lipid Ord30 LDL 65 mg/dL 03/04/2019 Lipid Ord30 C/HDL 4.6 Ratio 03/04/2019 Tsh Ord6 TSH (3rd IS) 3.85 uIU/mL 03/04/2019 Comp Metabolic Lnu985 NA 142 mEq/L 03/04/2019 Comp Metabolic Dob758 K 4.5 mEq/L 03/04/2019 Comp Metabolic Yda056 CL 105 mEq/L 03/04/2019 Comp Metabolic Nhl755 CO2 30.0 mEq/L 03/04/2019 Comp Metabolic Rsy065 AN ION GAP 12 03/04/2019 Comp Metabolic Twq051 GL UCOSE 92 mg/dL 03/04/2019 Comp Metabolic Aod709 Cr eat 1.0 mg/dL 03/04/2019 Comp Metabolic Zot440 eG FR 80 ml/min/1.73m2 03/04 Comp Metabolic Yjb920 BUN 20 mg/dL 03/04/2019 Comp Metabolic Gim820 B/ C Ratio 20.8 Ratio 03/04/2019 Comp Metabolic Cjt531 CA LCIUM 9.0 mg/dL 03/04/2019 Comp Metabolic Ewo822 AL K PHOS 67 U/L 03/04/2019 Comp Metabolic Zyx674 T(SGOT) 17 U/L 03/04/2019 Comp Metabolic Tim219 AL T(SGPT) 17 U/L 03/04/2019 Comp Metabolic Xxg667 BI LI T 0.4 mg/dL 03/04/2019 Comp Metabolic Kru463 AL BUMIN 3.9 g/dL 03/04/2019 Comp Metabolic Jok036 TP RO 6.5 g/dL 03/04/2019 Comp Metabolic Crq512 GL OB 2.6 g/dL 03/04/2019 Comp Metabolic Oet308 A/ G Ratio 1.5 Ratio 03/04/2019 Comp Metabolic Rga325 Os mo 285 mOsmo 03/04/2019 Cbc With [...] 33.4 pg 12/02/2018 Cbc With Differential Ord2 [place]% 8.0 % 12/02/2018 Cbc With Differential Ord2 [...] 2.13 K/ul 12/02/2018 Cbc With Differential Ord2 [place] ABS# 0.6 K/ul 12/02/2018 Cbc With Differential Ord2 Eos ABS# 0.4 K/ul 12/02/2018 Cbc With Differential Ord2 Baso ABS# 0.0 K/ul 12/02/2018 Testosterone Zzo080 Testo 213.5 ng/dL 12/02/2018 A1C Frequency Teh172 A1CF 54420-8 [place] [facility] [place]: 201812/02/2018 Testosterone Yvg628 Testo 669.0 ng/dL 09/08/2018 %Hba1C Woh450 % HbA1c 60940-6 7.4 % 09/08/2018 %Hba1C Hjm051 Gluc Ave 166 mg/dL 09/08/2018 Lipid Ord30 CHOL 114 mg/dL 09/08/2018 Lipid Ord30 HDL 28.0 mg/dl 09/08/2018 Lipid Ord30 TRIG 154 mg/dL 09/08/2018 Lipid Ord30 LDL 55 mg/dL 09/08/2018 Lipid Ord30 C/HDL 4.1 Ratio 09/08/2018 Comp Metabolic Uku416 NA 137 mEq/L 09/08/2018 Comp Metabolic Usc331 K 4.3 mEq/L 09/08/2018 Comp Metabolic Amd877 CL 100 mEq/L 09/08/2018 Comp Metabolic Goe188 CO2 27.0 mEq/L 09/08/2018 Comp Metabolic Bzq469 AN ION GAP 14 09/08/2018 Comp Metabolic Wuq139 GL UCOSE 85 mg/dL 09/08/2018 Comp Metabolic Dqh552 Cr eat 1.1 mg/dL 09/08/2018 Comp Metabolic Ene467 eG FR 70 ml/min/1.73m2 09/08 Comp Metabolic Gfr823 BUN 11 mg/dL 09/08/2018 Comp Metabolic Nst698 B/ C Ratio 10.3 Ratio 09/08/2018 Comp Metabolic Mko873 CA LCIUM 9.2 mg/dL 09/08/2018 Comp Metabolic Zth747 AL K PHOS 65 U/L 09/08/2018 Comp Metabolic Chz452 T(SGOT) 16 U/L 09/08/2018 Comp Metabolic Hme419 AL T(SGPT) 14 U/L 09/08/2018 Comp Metabolic Iex326 BI LI T 0.6 mg/dL 09/08/2018 Comp Metabolic Cmp785 AL BUMIN 4.0 g/dL 09/08/2018 Comp Metabolic Wza434 TP RO 6.6 g/dL 09/08/2018 Comp Metabolic Mvq543 GL OB 2.6 g/dL 09/08/2018 Comp Metabolic Air772 A/ G Ratio 1.6 Ratio 09/08/2018 Comp Metabolic Toa733 Os mo 272 mOsmo 09/08/2018 Vitamin D 25 Oh Dzi1681 VITAMIN D, 25 HYDROXY 37.17 ng/mL 09/08/2018 [...] 33.3 pg 09/08/2018 Cbc With Differential Ord2 [place]% 8.1 % 09/08/2018 Cbc With Differential Ord2 [...] 2.44 K/ul 09/08/2018 Cbc With Differential Ord2 [place] ABS# 0.6 K/ul 09/08/2018 Cbc With Differential Ord2 Eos ABS# 0.3 K/ul 09/08/2018 Cbc With Differential Ord2 Baso ABS# 0.0 K/ul 09/08/2018 Tsh Ord6 TSH (3rd IS) 2.72 uIU/mL 09/08/2018 Comp Metabolic Cbn554 NA 139 mEq/L 04/01/2018 Comp Metabolic Xex421 K 4.2 mEq/L 04/01/2018 Comp Metabolic Pul516 CL 102 mEq/L 04/01/2018 Comp Metabolic Vzz747 CO2 29.0 mEq/L 04/01/2018 Comp Metabolic Prg900 AN ION GAP 12 04/01/2018 Comp Metabolic Onp856 GL UCOSE 87 mg/dL 04/01/2018 Comp Metabolic Qpr097 Cr eat 1.1 mg/dL 04/01/2018 Comp Metabolic Cvq845 eG FR 70 ml/min/1.73m2 04/01 Comp Metabolic Gwv647 BUN 21 mg/dL 04/01/2018 Comp Metabolic Kby724 B/ C Ratio 19.4 Ratio 04/01/2018 Comp Metabolic Nhq630 CA LCIUM 9.1 mg/dL 04/01/2018 Comp Metabolic Fwm712 AL K PHOS 60 U/L 04/01/2018 Comp Metabolic Xfk935 T(SGOT) 15 U/L 04/01/2018 Comp Metabolic Ksp429 AL T(SGPT) 18 U/L 04/01/2018 Comp Metabolic Eru986 BI LI T 0.4 mg/dL 04/01/2018 Comp Metabolic Jlq284 AL BUMIN 4.0 g/dL 04/01/2018 Comp Metabolic Lsu160 TP RO 6.5 g/dL 04/01/2018 Comp Metabolic Meo172 GL OB 2.5 g/dL 04/01/2018 Comp Metabolic Eyt982 A/ G Ratio 1.6 Ratio 04/01/2018 Comp Metabolic Bus403 Os mo 280 mOsmo 04/01/2018 Lipid Ord30 [...] 34.3 pg 04/01/2018 Cbc With Differential Ord2 [place]% 6.0 % 04/01/2018 Cbc With Differential Ord2 [...] 3.25 K/ul 04/01/2018 Cbc With Differential Ord2 [place] ABS# 0.6 K/ul 04/01/2018 Cbc With Differential Ord2 Eos ABS# 0.4 K/ul 04/01/2018 Cbc With Differential Ord2 Baso ABS# 0.0 K/ul 04/01/2018 %Hba1C Oip135 % HbA1c 92929-1 8.0 % 04/01/2018 %Hba1C Umi429 Gluc Ave 183 mg/dL 04/01/2018 Testosterone Xmp842 Testo 111.3 ng/dL 04/01/2018 Testosterone Xbb991 Testo 135.4 ng/dL 01/14/2018 Cbc With Differential [...] 36.0 pg 01/14/2018 Cbc With Differential Ord2 [place]% 6.8 % 01/14/2018 Cbc With Differential Ord2 [...] 2.71 K/ul 01/14/2018 Cbc With Differential Ord2 [place] ABS# 0.8 K/ul 01/14/2018 Cbc With Differential Ord2 Eos ABS# 0.2 K/ul 01/14/2018 Cbc With Differential Ord2 Baso ABS# 0.0 K/ul 01/14/2018 Comp Metabolic Cwy354 NA 134 mEq/L 11/20/2017 Comp Metabolic Fds696 K 4.4 mEq/L 11/20/2017 Comp Metabolic Rnc178 CL 99 mEq/L 11/20/2017 Comp Metabolic Hfd071 CO2 29.0 mEq/L 11/20/2017 Comp Metabolic Waq019 AN ION GAP 10 11/20/2017 Comp Metabolic Ozr808 GL UCOSE 218 mg/dL 11/20/2017 Comp Metabolic Rcr706 Cr eat 1.0 mg/dL 11/20/2017 Comp Metabolic Jlo897 eG FR 78 ml/min/1.73m2 11/20 Comp Metabolic Wvb189 BUN 13 mg/dL 11/20/2017 Comp Metabolic Qyr181 B/ C Ratio 13.3 Ratio 11/20/2017 Comp Metabolic Jis028 CA LCIUM 9.0 mg/dL 11/20/2017 Comp Metabolic Hno666 AL K PHOS 71 U/L 11/20/2017 Comp Metabolic Aei772 T(SGOT) 18 U/L 11/20/2017 Comp Metabolic Vqh570 AL T(SGPT) 17 U/L 11/20/2017 Comp Metabolic Ied778 BI LI T 0.4 mg/dL 11/20/2017 Comp Metabolic Fsk485 AL BUMIN 4.1 g/dL 11/20/2017 Comp Metabolic Uzz669 TP RO 6.5 g/dL 11/20/2017 Comp Metabolic Vye553 GL OB 2.4 g/dL 11/20/2017 Comp Metabolic Smg355 A/ G Ratio 1.8 Ratio 11/20/2017 Comp Metabolic Qdf629 Os mo 275 mOsmo 11/20/2017 Cbc With [...] 35.2 pg 11/20/2017 Cbc With Differential Ord2 [place]% 7.2 % 11/20/2017 Cbc With Differential Ord2 [...] 3.34 K/ul 11/20/2017 Cbc With Differential Ord2 [place] ABS# 0.6 K/ul 11/20/2017 Cbc With Differential Ord2 Eos ABS# 0.3 K/ul 11/20/2017 Cbc With Differential Ord2 Baso ABS# 0.0 K/ul 11/20/2017 Vitamin D 25 Oh Cvk1238 VITAMIN D, 25 HYDROXY 43.72 ng/mL 11/20/2017 %Hba1C Blp038 % HbA1c 75775-1 7.4 % 11/20/2017 %Hba1C Ybb738 Gluc Ave 166 mg/dL 11/20/2017 %Hba1C Xbx317 % HbA1c 40671-1 7.2 % 08/20/2017 %Hba1C Vbt683 Gluc Ave 160 mg/dL 08/20/2017 Lipid Ord30 [...] 34.7 pg 08/20/2017 Cbc With Differential Ord2 [place]% 7.6 % 08/20/2017 Cbc With Differential Ord2 [...] 2.42 K/ul 08/20/2017 Cbc With Differential Ord2 [place] ABS# 0.6 K/ul 08/20/2017 Cbc With Differential Ord2 Eos ABS# 0.3 K/ul 08/20/2017 Cbc With Differential Ord2 Baso ABS# 0.0 K/ul 08/20/2017 Tsh Ord6 hTSH II 2.27 uIU/mL 08/20/2017 Comp Metabolic Zha981 NA 138 mEq/L 08/20/2017 Comp Metabolic Ajd849 K 4.3 mEq/L 08/20/2017 Comp Metabolic Fqt076 CL 102 mEq/L 08/20/2017 Comp Metabolic Vom293 CO2 29.0 mEq/L 08/20/2017 Comp Metabolic Pue302 AN ION GAP 11 08/20/2017 Comp Metabolic Eja396 GL UCOSE 89 mg/dL 08/20/2017 Comp Metabolic Dia904 Cr eat 1.0 mg/dL 08/20/2017 Comp Metabolic Dnw940 eG FR 80 ml/min/1.73m2 08/20 Comp Metabolic Sct273 BUN 13 mg/dL 08/20/2017 Comp Metabolic Ull404 B/ C Ratio 13.5 Ratio 08/20/2017 Comp Metabolic Dhy148 CA LCIUM 9.2 mg/dL 08/20/2017 Comp Metabolic Fft701 AL K PHOS 69 U/L 08/20/2017 Comp Metabolic Mlt902 T(SGOT) 18 U/L 08/20/2017 Comp Metabolic Fwt586 AL T(SGPT) 19 U/L 08/20/2017 Comp Metabolic Cir614 BI LI T 0.6 mg/dL 08/20/2017 Comp Metabolic Fci294 AL BUMIN 4.0 g/dL 08/20/2017 Comp Metabolic Ztx290 TP RO 6.6 g/dL 08/20/2017 Comp Metabolic Sso902 GL OB 2.6 g/dL 08/20/2017 Comp Metabolic Crz621 A/ G Ratio 1.5 Ratio 08/20/2017 Comp Metabolic Fah792 Os mo 275 mOsmo 08/20/2017 Vitamin D 25 Oh Qaj7735 VITAMIN D, 25 HYDROXY 30.96 ng/mL 08/20/2017 B12 Zrn898 B12 >1500.00 pg/ml 02/22/2017 Cbc With Differential [...] 35.7 pg 02/20/2017 Cbc With Differential Ord2 [place]% 6.3 % 02/20/2017 Cbc With Differential Ord2 [...] 3.19 K/ul 02/20/2017 Cbc With Differential Ord2 [place] ABS# 0.5 K/ul 02/20/2017 Cbc With Differential Ord2 Eos ABS# 0.4 K/ul 02/20/2017 Cbc With Differential Ord2 Baso ABS# 0.0 K/ul 02/20/2017 Comp Metabolic Xrn392 NA 138 mEq/L 02/20/2017 Comp Metabolic Xjm528 K 4.5 mEq/L 02/20/2017 Comp Metabolic Fvv733 CL 101 mEq/L 02/20/2017 Comp Metabolic Bhs224 CO2 31.0 mEq/L 02/20/2017 Comp Metabolic Nzj827 AN ION GAP 11 02/20/2017 Comp Metabolic Xtr944 GL UCOSE 120 mg/dL 02/20/2017 Comp Metabolic Hvf210 Cr eat 0.9 mg/dL 02/20/2017 Comp Metabolic Gnl404 eG FR 83 ml/min/1.73m2 02/20 Comp Metabolic Jny050 BUN 15 mg/dL 02/20/2017 Comp Metabolic Uxm949 B/ C Ratio 16.1 Ratio 02/20/2017 Comp Metabolic Jdu390 CA LCIUM 9.1 mg/dL 02/20/2017 Comp Metabolic Eyl142 AL K PHOS 67 U/L 02/20/2017 Comp Metabolic Dxo228 T(SGOT) 15 U/L 02/20/2017 Comp Metabolic Fhg566 AL T(SGPT) 16 U/L 02/20/2017 Comp Metabolic Jtq992 BI LI T 0.5 mg/dL 02/20/2017 Comp Metabolic Dcc539 AL BUMIN 4.0 g/dL 02/20/2017 Comp Metabolic Kwx733 TP RO 6.4 g/dL 02/20/2017 Comp Metabolic Hnu021 GL OB 2.4 g/dL 02/20/2017 Comp Metabolic Pcr246 A/ G Ratio 1.7 Ratio 02/20/2017 Comp Metabolic Mzc560 Os mo 278 mOsmo 02/20/2017 Tsh Ord6 hTSH II 2.05 uIU/mL 02/20/2017 %Hba1C Jih932 % HbA1c 80258-5 7.6 % 02/20/2017 %Hba1C Ddc310 Gluc Ave 171 mg/dL 02/20/2017 Vitamin D 25 Oh Hbr1264 VITAMIN D, 25 HYDROXY 44.40 ng/mL 12/21/2016 Comp Metabolic Rnd472 NA 131 mEq/L 12/21/2016 Comp Metabolic Wle364 K 4.2 mEq/L 12/21/2016 Comp Metabolic Saw446 CL 97 mEq/L 12/21/2016 Comp Metabolic Arm408 CO2 27.0 mEq/L 12/21/2016 Comp Metabolic Wjr175 AN ION GAP 11 12/21/2016 Comp Metabolic Vof671 GL UCOSE 266 mg/dL 12/21/2016 Comp Metabolic Sgp717 Cr eat 0.9 mg/dL 12/21/2016 Comp Metabolic Ctm678 eG FR 88 ml/min/1.73m2 12/21 Comp Metabolic Ghz294 BUN 12 mg/dL 12/21/2016 Comp Metabolic Ffy083 B/ C Ratio 13.6 Ratio 12/21/2016 Comp Metabolic Our800 CA LCIUM 8.6 mg/dL 12/21/2016 Comp Metabolic Ung758 AL K PHOS 69 U/L 12/21/2016 Comp Metabolic Hmc711 T(SGOT) 15 U/L 12/21/2016 Comp Metabolic Wzz459 AL T(SGPT) 14 U/L 12/21/2016 Comp Metabolic Cku215 BI LI T 0.3 mg/dL 12/21/2016 Comp Metabolic Vje890 AL BUMIN 3.7 g/dL 12/21/2016 Comp Metabolic Yza605 TP RO 5.9 g/dL 12/21/2016 Comp Metabolic Xof166 GL OB 2.2 g/dL 12/21/2016 Comp Metabolic Xox079 A/ G Ratio 1.7 Ratio 12/21/2016 Comp Metabolic Rps513 Os mo 272 mOsmo 12/21/2016 Cbc With [...] 34.6 pg 12/21/2016 Cbc With Differential Ord2 [place]% 6.9 % 12/21/2016 Cbc With Differential Ord2 [...] 2.05 K/ul 12/21/2016 Cbc With Differential Ord2 [place] ABS# 0.4 K/ul 12/21/2016 Cbc With Differential Ord2 Eos ABS# 0.2 K/ul 12/21/2016 Cbc With Differential Ord2 Baso ABS# 0.0 K/ul 12/21/2016 Comp Metabolic Snf373 NA 138 mEq/L 09/03/2016 Comp Metabolic Qmb136 K 4.5 mEq/L 09/03/2016 Comp Metabolic Jws024 CL 102 mEq/L 09/03/2016 Comp Metabolic Myh895 CO2 30.0 mEq/L 09/03/2016 Comp Metabolic Yuy355 AN ION GAP 11 09/03/2016 Comp Metabolic Avl966 GL UCOSE 113 mg/dL 09/03/2016 Comp Metabolic Ftm675 Cr eat 1.0 mg/dL 09/03/2016 Comp Metabolic Lhs896 eG FR 81 ml/min/1.73m2 09/03 Comp Metabolic Umd716 BUN 10 mg/dL 09/03/2016 Comp Metabolic Xov276 B/ C Ratio 10.5 Ratio 09/03/2016 Comp Metabolic Uaf533 CA LCIUM 9.1 mg/dL 09/03/2016 Comp Metabolic Mwl461 AL K PHOS 71 U/L 09/03/2016 Comp Metabolic Juw703 T(SGOT) 18 U/L 09/03/2016 Comp Metabolic Quu305 AL T(SGPT) 17 U/L 09/03/2016 Comp Metabolic Rye030 BI LI T 0.6 mg/dL 09/03/2016 Comp Metabolic Egb556 AL BUMIN 4.1 g/dL 09/03/2016 Comp Metabolic Gct567 TP RO 6.4 g/dL 09/03/2016 Comp Metabolic Bme161 GL OB 2.3 g/dL 09/03/2016 Comp Metabolic Fwz091 A/ G Ratio 1.8 Ratio 09/03/2016 Comp Metabolic Rbm526 Os mo 276 mOsmo 09/03/2016 Vitamin D 25 Oh Xnf8855 VITAMIN D, 25 HYDROXY 28.23 ng/mL 09/03/2016 [...] 34.4 pg 09/03/2016 Cbc With Differential Ord2 [place]% 8.9 % 09/03/2016 Cbc With Differential Ord2 [...] 3.34 K/ul 09/03/2016 Cbc With Differential Ord2 [place] ABS# 0.7 K/ul 09/03/2016 Cbc With Differential Ord2 Eos ABS# 0.4 K/ul 09/03/2016 Cbc With Differential Ord2 Baso ABS# 0.0 K/ul 09/03/2016 Lipid Ord30 CHOL 120 mg/dL 09/03/2016 Lipid Ord30 HDL 33.0 mg/dl 09/03/2016 Lipid Ord30 TRIG 161 mg/dL 09/03/2016 Lipid Ord30 LDL 55 mg/dL 09/03/2016 Lipid Ord30 C/HDL 3.6 Ratio 09/03/2016 %Hba1C Emo420 % HbA1c 51382-4 7.5 % 09/03/2016 %Hba1C Trn686 Gluc Ave 169 mg/dL 09/03/2016 Tsh Ord6 hTSH II 1.50 uIU/mL 05/23/2016 %Hba1C Nht491 % HbA1c 03101-0 7.6 % 05/23/2016 %Hba1C Qpl376 Gluc Ave 171 mg/dL 05/23/2016 Comp Metabolic Eju311 NA 135 mEq/L 05/23/2016 Comp Metabolic Coa655 K 4.4 mEq/L 05/23/2016 Comp Metabolic Bck346 CL 99 mEq/L 05/23/2016 Comp Metabolic Spw839 CO2 28.0 mEq/L 05/23/2016 Comp Metabolic Sic746 AN ION GAP 12 05/23/2016 Comp Metabolic Rti621 GL UCOSE 257 mg/dL 05/23/2016 Comp Metabolic Yho798 Cr eat 0.8 mg/dL 05/23/2016 Comp Metabolic Pkg741 eG FR 95 ml/min/1.73m2 05/23 Comp Metabolic Rvp740 BUN 11 mg/dL 05/23/2016 Comp Metabolic Cdk383 B/ C Ratio 13.3 Ratio 05/23/2016 Comp Metabolic Hry881 CA LCIUM 9.0 mg/dL 05/23/2016 Comp Metabolic Mrk986 AL K PHOS 82 U/L 05/23/2016 Comp Metabolic Zeg237 T(SGOT) 21 U/L 05/23/2016 Comp Metabolic Toe639 AL T(SGPT) 20 U/L 05/23/2016 Comp Metabolic Gsa398 BI LI T 0.3 mg/dL 05/23/2016 Comp Metabolic Flm804 AL BUMIN 4.0 g/dL 05/23/2016 Comp Metabolic Syn589 TP RO 6.4 g/dL 05/23/2016 Comp Metabolic Rlt792 GL OB 2.4 g/dL 05/23/2016 Comp Metabolic Fjf975 A/ G Ratio 1.6 Ratio 05/23/2016 Comp Metabolic Ish618 Os mo 278 mOsmo 05/23/2016 Cbc With [...] 34.5 pg 05/23/2016 Cbc With Differential Ord2 [place]% 6.1 % 05/23/2016 Cbc With Differential Ord2 [...] 2.38 K/ul 05/23/2016 Cbc With Differential Ord2 [place] ABS# 0.4 K/ul 05/23/2016 Cbc With Differential Ord2 Eos ABS# 0.2 K/ul 05/23/2016 Cbc With Differential Ord2 Baso ABS# 0.0 K/ul 05/23/2016 B12 Krt215 B12 597.00 pg/ml 05/23/2016 Metabolic Ord15 NA [...] 0.92 uIU/mL 07/29/2015 Vitamin D 25 Oh Psx3813 VITAMIN D, 25 HYDROXY 26.93 ng/mL 07/29/2015 %Hba1C Ucz228 % HbA1c 92475-2 8.8 % 07/29/2015 %Hba1C Nuo611 Gluc Ave 206 mg/dL 07/29/2015 Cbc With [...] Ord2 RDW 14.9 % 07/29/2015 Comp Metabolic Cis561 NA 138 mEq/L 07/29/2015 Comp Metabolic Mod368 K 4.4 mEq/L 07/29/2015 Comp Metabolic Utz547 CL 102 mEq/L 07/29/2015 Comp Metabolic Qhj056 CO2 28.0 mEq/L 07/29/2015 Comp Metabolic Dyi741 AN ION GAP 12 07/29/2015 Comp Metabolic Xkm762 GL UCOSE 261 mg/dL 07/29/2015 Comp Metabolic Uju973 Cr eat 1.0 mg/dL 07/29/2015 Comp Metabolic Mao307 eG FR 77 ml/min/1.73m2 07/29 Comp Metabolic Tgg024 BUN 13 mg/dL 07/29/2015 Comp Metabolic Ymi625 B/ C Ratio 13.0 Ratio 07/29/2015 Comp Metabolic Hjt837 CA LCIUM 9.1 mg/dL 07/29/2015 Comp Metabolic Ock328 AL K PHOS 64 U/L 07/29/2015 Comp Metabolic Ump642 T(SGOT) 20 U/L 07/29/2015 Comp Metabolic Xkk021 AL T(SGPT) 22 U/L 07/29/2015 Comp Metabolic Hjk878 BI LI T 0.4 mg/dL 07/29/2015 Comp Metabolic Wdv334 AL BUMIN 4.0 g/dL 07/29/2015 Comp Metabolic Hkq698 TP RO 6.1 g/dL 07/29/2015 Comp Metabolic Iuv827 GL OB 2.1 g/dL 07/29/2015 Comp Metabolic Ehz026 A/ G Ratio 1.9 Ratio 07/29/2015 Comp Metabolic Kra529 Os mo 285 mOsmo 07/29/2015 Cbc With [...] Ord2 RDW 13.1 % 05/06/2015 Comp Metabolic Dyl531 NA 134 mEq/L 05/06/2015 Comp Metabolic Itd009 K 4.4 mEq/L 05/06/2015 Comp Metabolic Bzu881 CL 98 mEq/L 05/06/2015 Comp Metabolic Znh910 CO2 29.0 mEq/L 05/06/2015 Comp Metabolic Zqb562 AN ION GAP 11 05/06/2015 Comp Metabolic Qtx718 GL UCOSE 321 mg/dL 05/06/2015 Comp Metabolic Gsq082 Cr eat 1.0 mg/dL 05/06/2015 Comp Metabolic Faz192 eG FR 78 ml/min/1.73m2 05/06 Comp Metabolic Ikq202 BUN 20 mg/dL 05/06/2015 Comp Metabolic Txh815 B/ C Ratio 20.4 Ratio 05/06/2015 Comp Metabolic Aat964 CA LCIUM 9.5 mg/dL 05/06/2015 Comp Metabolic Ivm663 AL K PHOS 62 U/L 05/06/2015 Comp Metabolic Nuv193 T(SGOT) 21 U/L 05/06/2015 Comp Metabolic Pmu921 AL T(SGPT) 37 U/L 05/06/2015 Comp Metabolic Hpa966 BI LI T 0.4 mg/dL 05/06/2015 Comp Metabolic Fxp003 AL BUMIN 3.8 g/dL 05/06/2015 Comp Metabolic Qnr701 TP RO 6.1 g/dL 05/06/2015 Comp Metabolic Pju460 GL OB 2.3 g/dL 05/06/2015 Comp Metabolic Ajw934 A/ G Ratio 1.7 Ratio 05/06/2015 Comp Metabolic Vja008 Os mo 283 mOsmo 05/06/2015 Tsh Ord6 hTSH II 1.65 uIU/mL 02/18/2015 B12 Mew744 B12 605.00 pg/ml 02/18/2015 %Hba1C Utn468 % HbA1c 79356-9 8.3 % 02/18/2015 %Hba1C Xyg419 Gluc Ave 192 mg/dL 02/18/2015 Cbc With [...] Ord2 RDW 13.9 % 02/17/2015 Comp Metabolic Kda981 NA 137 mEq/L 02/17/2015 Comp Metabolic Zrm885 K 4.4 mEq/L 02/17/2015 Comp Metabolic Jkn017 CL 100 mEq/L 02/17/2015 Comp Metabolic Yul502 CO2 31.0 mEq/L 02/17/2015 Comp Metabolic Yyw250 AN ION GAP 10 02/17/2015 Comp Metabolic Yky473 GL UCOSE 307 mg/dL 02/17/2015 Comp Metabolic Faz454 Cr eat 1.0 mg/dL 02/17/2015 Comp Metabolic Zwy146 eG FR 74 ml/min/1.73m2 02/17 Comp Metabolic Szu396 BUN 22 mg/dL 02/17/2015 Comp Metabolic Mxv642 B/ C Ratio 21.4 Ratio 02/17/2015 Comp Metabolic Pix983 CA LCIUM 9.5 mg/dL 02/17/2015 Comp Metabolic Ujw066 AL K PHOS 78 U/L 02/17/2015 Comp Metabolic Zyg867 T(SGOT) 18 U/L 02/17/2015 Comp Metabolic Gqz101 AL T(SGPT) 32 U/L 02/17/2015 Comp Metabolic Pbq557 BI LI T 0.5 mg/dL 02/17/2015 Comp Metabolic Nlg824 AL BUMIN 4.3 g/dL 02/17/2015 Comp Metabolic Xoa929 TP RO 6.7 g/dL 02/17/2015 Comp Metabolic Oae808 GL OB 2.4 g/dL 02/17/2015 Comp Metabolic Uma245 A/ G Ratio 1.8 Ratio 02/17/2015 Comp Metabolic Phj667 Os mo 289 mOsmo 02/17/2015 Review of [...] 04/2015 Neurologic gait abnormality 02/17/2015 Psychiatric anxiety 0 04/2015 Psychiatric No depression 02/17/2015 Respiratory daytime [...] thin 03/03/2019 None Full Exam - General 1995 Eyes conjunctiva/eyelids Overall: conjunctiva clear 03/03/2019 None Full Exam - General 1995 Eyes conjunctiva/eyelids Overall: cornea clear 03/03/2019 None [...] clear 03/03/2019 None Full Exam - General 1995 Ears/Nose/Throat [...] clear 01/13/2018 None Full Exam - General 1995 Ears/Nose/Throat [...] accomodation 04/25/2017 None Full Exam - General 1995 Ears/Nose/Throat otoscopic exam External auditory canal: complete cerumen impaction 04/25/2017 None Full Exam - General 1995 Ears/Nose/Throat otoscopic exam Tympanic membrane: not visualized 04/25/2017 None Full Exam - General 1995 Ears/Nose/Throat lips/teeth/gingiva Overall: benign lips 04/25/2017 None Full Exam - General 1995 Ears/Nose/Throat lips/teeth/gingiva Overall: normal dentition 04/25/2017 None [...] 1995 Ears/Nose/Throat oral cavity/pharynx/larynx Overall: no masses 04/25/2017 [...] impaction 02/19/2017 None Full Exam - General 1995 Ears/Nose/Throat otoscopic exam Tympanic membrane: not visualized 02/19/2017 None Full Exam - General 1995 Ears/Nose/Throat lips/teeth/gingiva Overall: benign lips 02/19/2017 None Full Exam - General 1995 Ears/Nose/Throat lips/teeth/gingiva Overall: normal dentition 02/19/2017 None [...] inspection of skin Location: face 03/07/2015 on muslim, cheeks,actinic keratosis with irritation on left cheek - left muslim - croptherapy on these two lesions - [...] Procedure Codes Date THER/PROPH/DIAG INJ SC/IM CPT-4: 63331 03/17/2019 THER/PROPH/DIAG INJ SC/IM CPT-4: 63923 03/04/2019 THER/PROPH/DIAG INJ SC/IM CPT-4: 35195 02/16/2019 THER/PROPH/DIAG INJ SC/IM CPT-4: 00330 01/30/2019 THER/PROPH/DIAG INJ SC/IM CPT-4: 46598 01/16/2019 THER/PROPH/DIAG INJ SC/IM CPT-4: 36418 01/01/2019 THER/PROPH/DIAG INJ SC/IM CPT-4: 35938 12/17/2018 THER/PROPH/DIAG INJ SC/IM CPT-4: 36142 12/02/2018 THER/PROPH/DIAG INJ SC/IM CPT-4: 11766 11/18/2018 THER/PROPH/DIAG INJ SC/IM CPT-4: 92999 11/04/2018 THER/PROPH/DIAG INJ SC/IM CPT-4: 06947 10/14/2018 THER/PROPH/DIAG INJ SC/IM CPT-4: 63799 10/03/2018 THER/PROPH/DIAG INJ SC/IM CPT-4: 98982 09/23/2018 THER/PROPH/DIAG INJ SC/IM CPT-4: 01805 09/02/2018 THER/PROPH/DIAG INJ SC/IM CPT-4: 37359 08/21/2018 THER/PROPH/DIAG INJ SC/IM CPT-4: 94191 08/08/2018 THER/PROPH/DIAG INJ SC/IM CPT-4: 53251 07/28/2018 THER/PROPH/DIAG INJ SC/IM CPT-4: 24402 07/16/2018 THER/PROPH/DIAG INJ SC/IM CPT-4: 02721 07/02/2018 PPPS, SUBSEQ VISIT CPT- 4: G0439 06/30/2018 THER/PROPH/DIAG INJ SC/IM CPT-4: 94520 06/24/2018 THER/PROPH/DIAG INJ SC/IM CPT-4: 52483 06/13/2018 ADMIN INFLUENZA VIRU S VAC CPT-4: G0008 06/06/2018 FLU VACC PRSV FREE I NC ANTIG CPT-4: 84466 06/06/2018 THER/PROPH/DIAG INJ SC/IM CPT-4: 75332 06/05/2018 THER/PROPH/DIAG INJ SC/IM CPT-4: 48438 05/30/2018 THER/PROPH/DIAG INJ SC/IM CPT-4: 25073 05/22/2018 THER/PROPH/DIAG INJ SC/IM CPT-4: 59229 05/12/2018 THER/PROPH/DIAG INJ SC/IM CPT-4: 63446 05/02/2018 THER/PROPH/DIAG INJ SC/IM CPT-4: 70616 04/24/2018 THER/PROPH/DIAG INJ SC/IM CPT-4: 36067 04/17/2018 KETOROLAC TROMETHAMI NE INJ CPT-4: J1885 03/07/2018 URINALYSIS NONAUTO W /O SCOPE CPT-4: 46395 03/07/2018 THER/PROPH/DIAG INJ SC/IM CPT-4: 05056 02/20/2018 TRIAMCINOLONE ACET I [place] NOS CPT-4: J3301 01/30/2018 THER/PROPH/DIAG INJ SC/IM CPT-4: 52793 01/17/2018 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 3-[address]: 567353997 CPT-4: G0436 04/25/2017 ADMIN INFLUENZA VIRU S VAC CPT-4: G0008 04/25/2017 ADMIN PNEUMOCOCCAL V ACCINE SNOMED CT: 10536685 CPT-4: G0009 04/25/2017 PNEUMOCOCCAL VACC [address]: 95156820 CPT-4: 62229 04/25/2017 FLU VACC PRSV FREE I NC ANTIG CPT-4: 10618 04/25/2017 ADMIN INFLUENZA VIRU S VAC CPT-4: G0008 05/22/2016 FLU VACC 4 TELLY 3 YRS PLUS IM Formatting Model/CDA Sections, Assigned to/Angela Clemons SNOMED CT: 49191086 CPT-4: 93287Xtlvrwr 05/22/2016 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 3-[address]: 719358430 CPT-4: G0436 11/25/2015 URINALYSIS NONAUTO W /O SCOPE CPT-4: 10483 05/09/2015 TRIAMCINOLONE ACET I [place] NOS CPT-4: J3301 04/12/2015 DESTRUCT PREMALG LESION CPT-4: 71076 03/07/2015 DESTRUCT PREMALG LES 2-14 CPT-4: 88050 03/07/2015 REMOVE IMPACTED EAR WAX UNI CPT-4: 66003 12/31/2014 THER/PROPH/DIAG INJ SC/IM CPT-4: 11982 12/23/2014 TRIAMCINOLONE ACET I [place] NOS CPT-4: J3301 12/23/2014 Vital Signs Date Vital 03/03/2019 Blood Pressure 1: 150/72 Code: 8480-6 BMI: 20.6 Code: 00716-8 Heart Rate 1: 63 bpm Height: 5'11" SpO2: 100% Weight: 147 lbs 8 oz 12/02/2018 Blood Pressure 1: 140/70 Code: 8480-6 BMI: 21.9 Code: 46130-8 Heart Rate 1: 61 bpm Height: 5'11" SpO2: 94% Weight: 157 lbs 10/17/2018 Blood Pressure 1: 124/54 Code: 8480-6 BMI: 21.9 Code: 89706-6 Heart Rate 1: 64 bpm Height: 5'11" SpO2: 93% Weight: 157 lbs 09/02/2018 Blood Pressure 1: 140/80 Code: 8480-6 BMI: 21.2 Code: 30988-4 Heart Rate 1: 68 bpm Height: 5'11" SpO2: 97% Weight: 152 lbs 06/30/2018 BMI: 21.8 Code: 90563-5 Height: 5'11" Weight: 156 lbs 06/06/2018 Blood Pressure 1: 128/76 Code: 8480-6 BMI: 22.0 Code: 99915-6 Heart Rate 1: 81 bpm Height: 5'11" SpO2: 92% Weight: 158 lbs 04/04/2018 Blood Pressure 1: 124/70 Code: 8480-6 BMI: 20.8 Code: 10565-2 Heart Rate 1: 65 bpm Height: 5'11" SpO2: 95% Weight: 149 lbs 03/07/2018 Blood Pressure 1: 148/70 Code: 8480-6 BMI: 21.2 Code: 37380-9 Heart Rate 1: 66 bpm Height: 5'11" SpO2: 94% Weight: 152 lbs 02/20/2018 Blood Pressure 1: 134/58 Code: 8480-6 BMI: 20.5 Code: 93784-2 Heart Rate 1: 61 bpm Height: 5'11" SpO2: 92% Weight: 147 lbs 01/30/2018 Blood Pressure 1: 158/68 Code: 8480-6 BMI: 21.5 Code: 01549-5 Heart Rate 1: 71 bpm Height: 5'11" SpO2: 92% Weight: 154 lbs 01/14/2018 Blood Pressure 1: 156/70 Code: 8480-6 Height: Weight: 01/13/2018 Blood Pressure 1: 148/62 Code: 8480-6 BMI: 20.9 Code: 37779-1 Heart Rate 1: 54 bpm Height: 5'11" SpO2: 97% Weight: 150 lbs 11/19/2017 Blood Pressure 1: 150/60 Code: 8480-6 BMI: 21.8 Code: 79273-3 Heart Rate 1: 63 bpm Height: 5'11" SpO2: 98% Weight: 156 lbs 10/02/2017 Blood Pressure 1: 168/60 Code: 8480-6 BMI: 21.9 Code: 39052-6 Heart Rate 1: 52 bpm Height: 5'11" SpO2: 97% Weight: 157 lbs 07/23/2017 Blood Pressure 1: 170/70 Code: 8480-6 BMI: 21.8 Code: 29506-6 Heart Rate 1: 65 bpm Height: 5'11" SpO2: 98% Weight: 156 lbs 04/25/2017 Blood Pressure 1: 138/60 Code: 8480-6 BMI: 21.6 Code: 18540-2 Heart Rate 1: 55 bpm Height: 5'11" SpO2: 93% Weight: 155 lbs 02/19/2017 Blood Pressure 1: 138/64 Code: 8480-6 BMI: 21.3 Code: 84974-7 Heart Rate 1: 52 bpm Height: 5'11" SpO2: 96% Weight: 152 lbs 8 oz 01/21/2017 Blood Pressure 1: 160/68 Code: 8480-6 BMI: 21.3 Code: 44148-4 Heart Rate 1: 62 bpm Height: 5'11" SpO2: 96% Weight: 153 lbs 12/20/2016 Blood Pressure 1: 124/66 Code: 8480-6 BMI: 21.5 Code: 56413-4 Height: 5'11" Weight: 154 lbs 08/23/2016 Blood Pressure 1: 142/52 Code: 8480-6 BMI: 21.2 Code: 94380-0 Heart Rate 1: 54 bpm Height: 5'11" SpO2: 96% Weight: 152 lbs 05/22/2016 Blood Pressure 1: 130/76 Code: 8480-6 BMI: 21.5 Code: 08016-3 Heart Rate 1: 78 bpm Height: 5'11" SpO2: 92% Weight: 154 lbs 02/24/2016 Blood Pressure 1: 128/80 Code: 8480-6 BMI: 21.2 Code: 73752-9 Heart Rate 1: 74 bpm Height: 5'11" SpO2: 96% Weight: 152 lbs 01/27/2016 Blood Pressure 1: 144/60 Code: 8480-6 BMI: 21.2 Code: 44698-3 Heart Rate 1: 74 bpm Height: 5'11" SpO2: 97% Weight: 152 lbs 11/25/2015 Blood Pressure 1: 110/52 Code: 8480-6 BMI: 21.9 Code: 04690-1 Heart Rate 1: 65 bpm Height: 5'11" SpO2: 92% Weight: 157 lbs 07/28/2015 Blood Pressure 1: 138/62 Code: 8480-6 BMI: 21.8 Code: 69407-6 Heart Rate 1: 63 bpm Height: 5'11" SpO2: 91% Weight: 156 lbs 05/26/2015 Blood Pressure 1: 120/58 Code: 8480-6 BMI: 21.5 Code: 55762-4 Heart Rate 1: 99 bpm Height: 5'11" SpO2: 96% Weight: 154 lbs 05/06/2015 Blood Pressure 1: 120/58 Code: 8480-6 BMI: 21.2 Code: 22752-8 Heart Rate 1: 66 bpm Height: 5'11" SpO2: 96% Weight: 152 lbs 04/25/2015 Blood Pressure 1: 136/62 Code: 8480-6 BMI: 21.2 Code: 08868-2 Heart Rate 1: 63 bpm Height: 5'11" SpO2: 97% Weight: 152 lbs 04/12/2015 Blood Pressure 1: 160/58 Code: 8480-6 BMI: 21.6 Code: 96132-5 Heart Rate 1: 62 bpm Height: 5'11" Weight: 155 lbs 03/24/2015 Blood Pressure 1: 138/68 Code: 8480-6 BMI: 22.0 Code: 60488-9 Heart Rate 1: 65 bpm Height: 5'11" SpO2: 96% Weight: 158 lbs 03/07/2015 Blood Pressure 1: 116/52 Code: 8480-6 BMI: 22.2 Code: 39390-8 Heart Rate 1: 64 bpm Height: 5'11" SpO2: 97% Weight: 159 lbs 02/17/2015 Blood Pressure 1: 148/58 Code: 8480-6 BMI: 21.3 Code: 21263-6 Heart Rate 1: 63 bpm Height: 5'11" SpO2: 97% Weight: 153 lbs 12/31/2014 Blood Pressure 1: 100/60 Code: 8480-6 BMI: 21.8 Code: 89902-8 Heart Rate 1: 68 bpm Height: 5'11" Weight: 156 lbs 12/23/2014 Blood Pressure 1: 148/64 Code: 8480-6 BMI: 21.9 Code: 73766-6 Heart Rate 1: 64 bpm Height: 5'11" [...] chr onic 04/04/2018 None hypertension Quality angely haylee hypertension 04/04/2018 None hypertension Onset and Resolution [...] ongoing 03/07/2015 None Hospital Follow Up _ Oth er: vertigo 03/07/2015 None Hospital Follow Up [...] data Encounters Encounter Performer Loca tion Codes ([id number]) 56375 EST. P ATIENT, LEVEL IV Diagnosis: Chronic obstructive pulmonary disease, unspecified[ICD10: J44.9] Diagnosis: Mixed hyperlipidemia[ICD10: E78.2] Diagnosis: Type 2 diabetes mellitus with hyperglycemia[ICD10: E11.65] Diagnosis: Testicular dysfunction, unspecified[ICD10: E29.9] Diagnosis: Abnormal weight loss[ICD10: R63.4] [facility] CPT-4: 88474 03/03/2019 ([id number]) 52571 EST. P ATIENT, LEVEL IV Diagnosis: Chronic obstructive pulmonary disease, unspecified[ICD10: J44.9] Diagnosis: Type 2 diabetes mellitus with hyperglycemia[ICD10: E11.65] Diagnosis: Testicular dysfunction, unspecified[ICD10: E29.9] Diagnosis: Other insomnia[ICD10: G47.09] [facility] CPT- 4: 48193 12/02/2018 ([id number]) 71002 EST. P ATIENT, LEVEL III Diagnosis: Orthostatic hypotension[ICD10: I95.1] Diagnosis: Low back pain[ICD10: M54.5] Diagnosis: Unsteadiness on feet[ICD10: R26.81] Karmen Ash MD, [facility] CPT-4: 98245 10/17/2018 ([id number]) 08474 EST. P ATIENT, LEVEL IV Diagnosis: Essential (primary) hypertension[ICD10: I10] Diagnosis: Chronic obstructive pulmonary disease, unspecified[ICD10: J44.9] Diagnosis: Type 2 diabetes mellitus with hyperglycemia[ICD10: E11.65] Diagnosis: Vitamin D deficiency, unspecified[ICD10: E55.9] Diagnosis: Mixed hyperlipidemia[ICD10: E78.2] Diagnosis: Testicular dysfunction, unspecified[ICD10: E29.9] Karmen Ash MD, [facility] CPT-4: 20356 09/02/2018 ([id number]) 13939 EST. P ATIENT, LEVEL IV Diagnosis: Cellulitis of face[ICD10: L03.211] Diagnosis: Type 2 diabetes mellitus without complications[ICD10: E11.9] Diagnosis: Essential (primary) hypertension[ICD10: I10] Diagnosis: Encounter for immunization[ICD10: Z23] Karmen Ash MD, [facility] CPT-4: 60434 06/06/2018 ([id number]) 95940 EST. P ATIENT, LEVEL IV Diagnosis: Essential (primary) hypertension[ICD10: I10] Diagnosis: Chronic obstructive pulmonary disease, unspecified[ICD10: J44.9] Diagnosis: Testicular dysfunction, unspecified[ICD10: E29.9] Diagnosis: Type 2 diabetes mellitus with hyperglycemia[ICD10: E11.65] [facility] CPT-4: 32826 04/04/2018 ([id number]) 99056 EST. P ATIENT, LEVEL III Diagnosis: Low back pain[ICD10: M54.5] Diagnosis: Dysuria[ICD10: R30.0] Karmen Ash MD, [facility] CPT-4: 88772 03/07/2018 ([id number]) 59523 EST. P ATIENT, LEVEL IV Diagnosis: Essential (primary) hypertension[ICD10: I10] Diagnosis: Chronic obstructive pulmonary disease, unspecified[ICD10: J44.9] Diagnosis: Abnormal weight loss[ICD10: R63.4] Diagnosis: Low back pain[ICD10: M54.5] Diagnosis: Testicular dysfunction, unspecified[ICD10: E29.9] Diagnosis: Type 2 diabetes mellitus with hyperglycemia[ICD10: E11.65] Karmen Ash MD, [facility] CPT-4: 62460 02/20/2018 ([id number]) 08216 EST. P ATIENT, LEVEL III Diagnosis: Chronic obstructive pulmonary disease with (acute) exacerbation[ICD10: J44.1] Karmen Ash MD, [facility] CPT-4: 08589 01/30/2018 80305 EST. PATIENT, LEVEL II Diagnosis: Insect bite (nonvenomous), left lower leg, initial encounter[ICD10: S80.862A] Karmen Ash MD, [facility] CPT-4: 88287 01/14/2018 ([id number]) 79793 EST. P ATIENT, LEVEL IV Diagnosis: Type 2 diabetes mellitus with hyperglycemia[ICD10: E11.65] Diagnosis: Chronic obstructive pulmonary disease, unspecified[ICD10: J44.9] Diagnosis: Other fatigue[ICD10: R53.83] Karmen Ash MD, [facility] CPT- 4: 78857 01/13/2018 ([id number]) 31384 EST. P ATIENT, LEVEL IV Diagnosis: Type 2 diabetes mellitus with hyperglycemia[ICD10: E11.65] Diagnosis: Vitamin D deficiency, unspecified[ICD10: E55.9] Diagnosis: Essential (primary) hypertension[ICD10: I10] Diagnosis: Abdominal distension (gaseous)[ICD10: R14.0] Diagnosis: Drug induced constipation[ICD10: K59.03] Karmen Ash MD, [facility] CPT-4: 74380 11/19/2017 73436 EST. PATIENT, LEVEL IV Diagnosis: Low back pain[ICD10: M54.5] Diagnosis: Chronic obstructive pulmonary disease, unspecified[ICD10: J44.9] Brunidla Ash MD, [facility] CPT-4: 70336 10/02/2017 ([id number]) 63397 EST. P ATIENT, LEVEL IV Diagnosis: Essential (primary) hypertension[ICD10: I10] Diagnosis: Type 2 diabetes mellitus with hyperglycemia[ICD10: E11.65] Diagnosis: Vitamin D deficiency, unspecified[ICD10: E55.9] Diagnosis: Mixed hyperlipidemia[ICD10: E78.2] Karmen Ash MD, [facility] CPT-4: 53147 07/23/2017 ([id number]) 01279 EST. P ATIENT, LEVEL IV Diagnosis: Essential (primary) hypertension[ICD10: I10] Diagnosis: Type 2 diabetes mellitus with hyperglycemia[ICD10: E11.65] Diagnosis: Chronic obstructive pulmonary disease, unspecified[ICD10: J44.9] Diagnosis: Nicotine dependence, unspecified, uncomplicated[ICD10: F17.200] Diagnosis: Encounter for immunization[ICD10: Z23] Karmen Ash MD, [facility] CPT-4: 54633 04/25/2017 ([id number]) 55676 EST. P ATIENT, LEVEL IV Diagnosis: Type 2 diabetes mellitus with hyperglycemia[ICD10: E11.65] Diagnosis: Essential (primary) hypertension[ICD10: I10] Diagnosis: Anemia, unspecified[ICD10: D64.9] Karmen Ash MD, [facility] CPT- 4: 40343 02/19/2017 ([id number]) 29701 EST. P ATIENT, LEVEL IV Diagnosis: Slow transit constipation[ICD10: K59.01] Diagnosis: Gastro-esophageal reflux disease without esophagitis[ICD10: K21.9] Diagnosis: Essential (primary) hypertension[ICD10: I10] Karmen Ash MD, [facility] CPT-4: 61997 01/21/2017 ([id number]) 58544 EST. P ATIENT, LEVEL IV Diagnosis: Type 2 diabetes mellitus with hyperglycemia[ICD10: E11.65] Diagnosis: Vitamin D deficiency, unspecified[ICD10: E55.9] Diagnosis: Essential (primary) hypertension[ICD10: I10] Diagnosis: Chronic obstructive pulmonary disease, unspecified[ICD10: J44.9] Karmen Ash MD, [facility] CPT-4: 38066 12/20/2016 ([id number]) 00944 EST. P ATIENT, LEVEL IV Diagnosis: Type 2 diabetes mellitus with hyperglycemia[ICD10: E11.65] Diagnosis: Essential (primary) hypertension[ICD10: I10] Diagnosis: Mixed hyperlipidemia[ICD10: E78.2] Diagnosis: Vitamin D deficiency, unspecified[ICD10: E55.9] Karmen Ash MD, [facility] CPT-4: 81842 08/23/2016 ([id number]) 76268 EST. P ATIENT, LEVEL IV Diagnosis: Type 2 diabetes mellitus with hyperglycemia[ICD10: E11.65] Diagnosis: Essential (primary) hypertension[ICD10: I10] Diagnosis: Chronic obstructive pulmonary disease, unspecified[ICD10: J44.9] Karmen Ash MD, [facility] CPT-4: 32279 05/22/2016 ([id number]) 25900 EST. P ATIENT, LEVEL III Diagnosis: Dysuria[ICD10: R30.0] Diagnosis: Essential (primary) hypertension[ICD10: I10] Karmen Ash MD, [facility] CPT-4: 31475 02/24/2016 ([id number]) 78918 EST. P ATIENT, LEVEL IV Diagnosis: Gastro-esophageal reflux disease without esophagitis[ICD10: K21.9] Diagnosis: Slow transit constipation[ICD10: K59.01] Diagnosis: Type 2 diabetes mellitus with hyperglycemia[ICD10: E11.65] Karmen Ash MD, [facility] CPT-4: 74104 01/27/2016 ([id number]) 14386 EST. P ATIENT, LEVEL IV Diagnosis: Essential (primary) hypertension[ICD10: I10] Diagnosis: Type 2 diabetes mellitus with hyperglycemia[ICD10: E11.65] Diagnosis: Vitamin D deficiency, unspecified[ICD10: E55.9] Diagnosis: Chronic obstructive pulmonary disease, unspecified[ICD10: J44.9] Diagnosis: Mixed hyperlipidemia[ICD10: E78.2] Diagnosis: Tobacco use[ICD10: Z72.0] Karmen Ash MD, [facility] CPT- 4: 43793 11/25/2015 ([id number]) 86053 EST. P ATIENT, LEVEL IV Diagnosis: Type 2 diabetes mellitus with hyperglycemia[ICD10: E11.65] Diagnosis: Essential (primary) hypertension[ICD10: I10] Diagnosis: Vitamin D deficiency, unspecified[ICD10: E55.9] Karmen Ash MD, [facility] CPT-4: 14319 07/28/2015 ([id number]) 96916 EST. P ATIENT, LEVEL III Diagnosis: Type 2 diabetes mellitus with hyperglycemia[ICD10: E11.65] Diagnosis: Essential (primary) hypertension[ICD10: I10] Violeta Ash MD, [facility] CPT-4: 86105 05/26/2015 ([id number]) 75843 EST. P ATIENT, LEVEL III Diagnosis: DIABETES TYPE II[ICD9: 250.00] Diagnosis: COPD (chronic obstructive pulmonary disease)[ICD9: 496] Diagnosis: ESSENTIAL HYPERTENSION[ICD9: 401.9] Diagnosis: Cough[ICD9: 786.2] Violeta Ash MD, [facility] CPT-4: 77726 05/06/2015 ([id number]) 75969 EST. P ATIENT, LEVEL III Diagnosis: COPD (chronic obstructive pulmonary disease)[ICD9: 496] Diagnosis: DIABETES TYPE II[ICD9: 250.00] Diagnosis: Muscle ache[ICD9: 729.1] Karmen Ash MD, [facility] CPT- 4: 70903 04/25/2015 ([id number]) 10315 EST. P ATIENT, LEVEL III Diagnosis: ACTINIC KERATOSIS[ICD9: 702.0] Diagnosis: COPD (chronic obstructive pulmonary disease)[ICD9: 496] Diagnosis: DIABETES TYPE II[ICD9: 250.00] Diagnosis: ACUTE URI[ICD9: 465.9] Violeta Ash MD, [facility] CPT-4: 05106 04/12/2015 ([id number]) 21939 EST. P ATIENT, LEVEL III Diagnosis: DIABETES TYPE II[ICD9: 250.00] Violeta Ash MD, [facility] CPT-4: 86829 03/24/2015 ([id number]) 00859 EST. P ATIENT, LEVEL IV Diagnosis: DIABETES TYPE II[ICD9: 250.00] Diagnosis: Hypoglycemia[ICD9: 251.2] Diagnosis: Skin texture changes[ICD9: 782.8] [facility] CPT-4: 02819 03/07/2015 ([id number]) 33198 EST. P ATIENT, LEVEL IV Diagnosis: COPD (chronic obstructive pulmonary disease)[ICD9: 496] Diagnosis: Fatigue[ICD9: 780.79] Diagnosis: Insulin dependent diabetes mellitus[ICD9: 250.00] Diagnosis: Unsteady gait[ICD9: 781.2] Maame Ash MD, [facility] CPT-4: 52426 02/17/2015 ([id number]) 92754 EST. P ATIENT, LEVEL IV Diagnosis: BPPV (benign paroxysmal positional vertigo)[ICD9: 386.11] Diagnosis: Impacted cerumen[ICD9: 380.4] Diagnosis: ESSENTIAL HYPERTENSION[ICD9: 401.9] Diagnosis: Insulin dependent diabetes mellitus[ICD9: 250.00] Karmen Ash MD, [facility] CPT-4: 03573 12/23/2014 ([id number]) [facility] Diagnosis: Insulin dependent diabetes mellitus[ICD9: 250.00] Diagnosis: BPPV (benign paroxysmal positional vertigo)[ICD9: 386.11] Diagnosis: COPD (chronic obstructive pulmonary disease)[ICD9: 496] Diagnosis: Tobacco abuse[ICD9: 305.1] Diagnosis: Osteoarthritis[ICD9: 715.90] Karmen Ash MD, [facility] CPT- 4: 75642 12/09/2014 Plan of Care Planned Activity Notes C odes Status Date Patient Education: Patient Medication Summary Completed 03/17/2019 Patient Education: Patient Medication Summary Completed 03/05/2019 Appointment: Injection 03/04/2019 Patient Education: Patient Medication Summary Completed 03/04/2019 Visit Plan: COPD - chronic problem for this patient. We have reviewed chronic treatment strategy, symptom control, and plans for acute exacerbations. No changes today to the current treatment plan as the patient is stable, monitor for acute changes. prison tobacco use -weight loss-order for chest xray provided DM -rx for CGM -patient is due for labs Low testosterone - check level 03/03/2019 Appointment: Karm[facility]inal [facility] [phone] ([facility] min) Complex 03/03/2019 Patient Education: Patient [...] directed 12/02/2018 Appointment: Karmen Espinal WPtel: [phone] [phone] (30 min) Complex 12/02/2018 Patient Education: Patient Medication Summary Completed 12/02/2018 Patient Education: Diabetes Completed 12/02/2018 Appointment: Injection 11/18/2018 Patient Education: Patient Medication Summary Completed 11/18/2018 Appointment: Injection 11/04/2018 Patient Education: Patient Medication Summary Completed 11/04/2018 Appointment: Karmen Espinal WPtel: [phone] [phone] (30 min) Complex 10/21/2018 Visit Plan: Orthostatic [...] walker 10/17/2018 Appointment: Karmen Espinal WPtel: [phone] [phone] (30 min) Complex 10/17/2018 Patient Education: Patient [...] to medications. 09/02/2018 Appointment: Karmen Espinal WPtel: [phone] [phone] (15 min) Moderate 09/02/2018 Patient Education: Patient [...] surrogate. 06/30/2018 Appointment: [facility] [phone] [phone] [facility] - Annual Wellness Visit 06/30/2018 Patient Education: [...] pain. 06/06/2018 Appointment: [phone] [phone] [place] (15 min) Moderate 06/06/2018 Patient Education: Patient [...] months 04/04/2018 Appointment: Karmen Espinal WPtel: [phone] [phone] [place] (15 min) Moderate 04/04/2018 Patient Education: Patient Medication Summary Completed 04/04/2018 Care Plan: Cbc With Differential Pending 04/04/2018 Care Plan: Testosterone repeat in 2 months Pending 04/04/2018 Appointment: Karmen Espinal WPtel: [phone] [phone] [place] (15 min) Moderate 03/25/2018 Visit Plan: Low back pain -history of kidney stone-UA negative today -increase fluids and call if pain does not resolve or if any worse. 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 01/30/2018 Appointment: Karmen Espinal WPtel: [facility] [phone] (15 min) Moderate 01/30/2018 Patient Education: Patient Medication Summary Completed 01/30/2018 Appointment: Karmen Espinal WPtel: [phone] [phone] (15 min) Moderate 01/28/2018 Appointment: Injection 01/17/2018 Patient Education: Patient Medication Summary Completed 01/17/2018 Visit Plan: Cellulitis - start oral antibiotics as directed, return to clinic as previously directed, call for acute change in symptoms, worsening redness, warmth, discharge. 01/14/2018 Appointment: Karmen Espinal WPtel: [address] [place] [address] (10 min) Simple 01/14/2018 Patient Education: Patient [...] less controlled. 01/13/2018 Appointment: Karmen Espinal WPtel: [address] [place] [address] (15 min) Moderate 01/13/2018 Patient Education: Patient Medication Summary Completed 01/13/2018 [phone] [place] [address] Patient's informed. Referral info ned monroy. Completed [...] change in blood pressure readings at home. Kahclxhh-emveda-rmlla to see Dr Villatoro Constipation-start linzess daily 11/19/2017 Appointment: Karmen Espinal WPtel: [address] [place], [place] [phone] (30 min) Complex 11/19/2017 Patient Education: Patient Medication Summary Completed 11/19/2017 Care Plan: Referral Order bloating, nausea SNOMED-CT : [id number] Pending 11/19/2017 Visit Plan: Low back pain- pt is [...] changes. 10/02/2017 Visit Plan: Low back pain- the gloria [...] acute changes. 10/02/2017 Appointment: Brunilda Maravilla WPtel: [address] [place], [place] [phone] (15 min) Moderate 10/02/2017 Patient Education: Patient [...] less controlled. 07/23/2017 Appointment: Karmen Espinal WPtel: [phone] [phone] (30 min) Complex 07/23/2017 Patient Education: Patient Medication Summary Completed 07/23/2017 Patient Education: Smoking and Tobacco Addiction Completed 07/23/2017 Patient Education: Hypertension Completed 07/23/2017 Visit Plan: Hypertension - echo traore - continue with current medications, continue with [...] pack/year history 04/25/2017 Appointment: [facility]el[facility] [phone] [phone] (30 min) Complex 04/25/2017 Patient Education: Patient [...] readings are starting to become less controlled. Jfnxrj-aefwbhl-jvysp labs 02/19/2017 Appointment: Karmen Espinal WPtel: [phone] (30 min) Complex 02/19/2017 Patient Education: Patient [...] 1 month 01/21/2017 Appointment: Karmen Espinal WPtel: [phone] [phone] (30 min) Complex 01/21/2017 Patient Education: Patient Medication Summary Completed 01/21/2017 Patient Education: Smoking and Tobacco Addiction Completed 01/21/2017 Patient Education: Hypertension Completed 01/21/2017 Care Plan: Referral Order SNOMED-CT : [id number] Pending 01/21/2017 Visit Plan: Diabetes Mellitus - [...] acute changes. 12/20/2016 Appointment: [facility]el[facility] [phone] [email or web address] (30 min) Complex 12/20/2016 Patient Education: Patient Medication Summary Completed 12/20/2016 Patient Education: Smoking and Tobacco Addiction Completed 12/20/2016 Patient Education: Hypertension Completed 12/20/2016 Appointment: [facility] Espinal [facility]Ptel[facility] [phone] [phone] (30 min) Complex 09/06/2016 Visit Plan: Diabetes Mellitus - con virgieed [...] d level 08/23/2016 Appointment: Karmen Espinal WPtel: [phone] [phone] (30 min) Complex 08/23/2016 Patient Education: Patient [...] acute changes. 05/22/2016 Appointment: [facility] Espinal [facility]Ptel[facility] [phone] [phone] (30 min) Complex 05/22/2016 Patient Education: Patient Medication Summary Completed 05/22/2016 Patient Education: Smoking and Tobacco Addiction Completed 05/22/2016 Care Plan: Cbc With Differential Ordered 05/22/2016 Care Plan: %Hba1C LOIN C : 97417-5 Ordered 05/22/2016 Care Plan: Tsh Ordered 05/22/2016 [...] with update 02/24/2016 Appointment: Karmen Espinal WPtel: [address] [place], [place] [email or web address] (30 min) Complex 02/24/2016 Patient Education: Patient Medication Summary Completed 02/24/2016 Patient Education: Smoking and Tobacco Addiction Completed 02/24/2016 Patient Education: Hypertension Completed 02/24/2016 Visit Plan: Diabetes Mellitus - con virgieed [...] this regimen. 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 Cgosszpb-wauvqcau-ZRMK SIMVASTATIN X 2 WEEKS AND CALL WITH [...] 04/12/2015 Visit Plan: Diabetes Mellitus - con purvilled [...] Care Plan: COMPLETE CBC AUTOMATED LOINC : 69591-6 Ordered 03/24/2015 Visit Plan: Diabetes Mellitus - [...] for removal. 03/07/2015 Appointment: Violeta Ash WPtel: [address] [place], [place] [phone] (15 min) Moderate 03/07/2015 Patient Education: Patient [...] hearing. The wax was removed by the [facility] ctitioner due to the wax being more [...] Care Plan: COMPLETE CBC AUTOMATED LOINC : 52291-1 Ordered 12/23/2014 Visit Plan: BPPV - Benign [...] next appt 12/09/2014 Appointment: Karmen Espinal WPtel: [address] [place], [place] [phone] [place] ([place]) New Patient 12/09/2014 Patient Education: Patient Medication Summary Completed 12/09/2014 Patient Education: .Amazing charts Parox ysmal positional vertigo Completed 12/09/2014 Patient Education: Smoking and Tobacco Addiction Completed 12/09/2014 [id number] [place] Referral Appointment Requested Referral: Luis Donohue Referral Appointment Requested Instructions Comment . Low back pain- pt is OK [...] for acute changes. . Low back pain- the patient was [...] patient is stable, monitor for acute changes. BRING BLOOD SUGAR LO G TO NEXT [...] and will check at next appt . Hypertension - wel l controlled - [...] as discussed-follow up in 1 month . Esophageal Reflux - the patient has [...] today-monitor at home-follow up in 1 month Miralax 1 packet laron ry other day. [...] if symptoms not improved on this regimen. jardiance 10mg daily . Hypertension - well [...] injections monthly -repeat labs in 2 months . Hypertension - wel l controlled - [...] today in the office-wound instructions provided . COPD -recent pneum onia-symptoms have improved [...] are starting to become less controlled. . Hypertension - wel l controlled - [...] readings are starting to become less controlled. Qjqbmk-tzqrsnk-cytcl labs . Cellulitis - start oral antibiotics as [...] change in blood pressure readings at home. Iicfnaxh-rwdzfg-zyacz to see Dr Villatoro Constipation-start linzess daily [...] POTENTIAL SIDE EFFECTS AND WORSENING OF SYMPTOMS. Qpsikamf-eadaiwbc-IROV SIMVASTATIN X 2 WEEKS AND CALL WITH [...] response to medications. RETURN FOR LABS GAIL RROW CONTINUOUS GLUCOSE MONITOR CHEST XRAY . COPD - chronic problem for this patien t. We have reviewed chronic treatment strategy, symptom control, and plans for acute exacerbations. No changes today to the current treatment plan as the patient is stable, monitor for acute changes. prison tobacco use -weight loss-order for chest xray [...]
[2020-03-29] MEDS ORDERED: LACTATED RINGERS 1,000 ML IV STA (07:33)
--- OUTSIDE RECORDS SUMMARY | 2020-03-29 07:35 | XMS REPORT | CCD ---
Author Author Dick Espinal Organization Violeta Ash MD, [facility] Address [address] [place] [address] Phone Care Team Providers Care It Telecom Technician Name Role Phone PP Unavailable CCM Unavailable Summary Purpose Interface Exchange Insurance Providers Payer name Policy type / Coverage type Covered democrat ID Effective Begin Date Effective End Date WPS Medicare Part B Medicare Part B [id number] Unknown Unknown [employer] [place] Medicare Part B [id number] Unknown Unknown Family history Father Diagnosis Age At Onset Cancer Unknown Mother Diagnosis Age At Onset Cancer Unknown Social History Social History Element Codes Description Effective Dates Number of cigarettes/day Unknown 20 (One Pack) 03/03/2019 Marital status Unknown M arried 12/09/2014 Employment Unknown Retir ed 12/09/[address]: 76520956 Currently smokes tobacco 12/09/2014 Number of years using tobacco Unknown > 50 12/09/[address]: 888128517 Never drinks alcohol 12/09/2014 Allergies, Adverse Reactions, Alerts Substance Reaction Codes Entered Date Inactivated Date Status * OTHER REACTION - S EE ANSWER BOX ceftin- c-dif Unknown No Inactive Date Active * NO KNOWN FOOD TAYLOR RGIES Unknown 12/09/2014 No Inactive Date Active Past Medical History Illness Codes Condition Status Onset Date Resolved Date Anemia, unspecified ICD- 9: 285.9 ICD-10: D64.9 Active 05/22/2016 Unknown Testicular dysfuncti on, unspecified ICD-9: 257.9 ICD-10: E29.9 Active 01/17/2018 Unknown Abnormal weight loss ICD-9: 783.21 ICD-10: [...] Condition Codes Effectiv e Dates Condition Status Anemia, unspecified ICD- 9: 285.9 ICD-10: D64.9 05/22/2016 Active Testicular dysfuncti on, unspecified ICD-9: 257.9 ICD-10: E29.9 01/17/2018 Active Abnormal weight loss ICD-9: 783.21 ICD-10: [...] 5 mg-linh taminophen 325 mg tablet RxNorm: 352603 1 Tablet(s) PO Q6-8H as needed 03/17/2019 04/10/2019 Active Toujeo SoloStar U-30 0 Insulin 300 unit/mL (1.5 mL) subcutaneous pen RxNorm: 7872336 35 Unit(s) SQ QHS 03/05/2019 07/02/2019 Active Dosage change! testosterone cypiona te 200 mg/mL intramuscular oil RxNorm: 6302895 1/2 Milliliter(s) IM 03/04/2019 03/04/2019 Inactive Toujeo SoloStar U-30 0 Insulin 300 unit/mL (1.5 mL) subcutaneous pen RxNorm: 0962821 30 Unit(s) SQ QHS 03/03/2019 03/04/2019 Inactive Xanax 0.5 mg tablet RxNorm: 559169 Tablet(s) as needed TAKE ONE TABLET BY M OUTH THREE TIMES A DAY 02/19/2019 04/19/2019 Active Xanax 0.5 mg tablet RxNorm: 068120 Tablet(s) TAKE ONE TABLET BY MOUTH THREE TIMES A DAY 02/19/2019 02/18/2019 Inactive hydrocodone 5 mg-linh taminophen 325 mg tablet RxNorm: 391310 1 Tablet(s) PO Q6-8H as needed 02/16/2019 03/12/2019 Inactive testosterone cypiona te 200 mg/mL intramuscular oil RxNorm: 1122959 Milliliter(s) IM 02/16/2019 02/16/2019 In active Protonix 40 mg table t,delayed release RxNorm: 148676 TAKE 1 TABLET BY MOUT H DAILY 02/02/2019 01/27/2020 Ac tive - Ref: [id number] simvastatin 40 mg ta blet RxNorm: 366269 TAKE 1 TABLET BY MOUT H DAILY AT BEDTIME 02/02/2019 01/27/2020 Ac tive - Ref: [id number] testosterone cypiona te 200 mg/mL intramuscular oil RxNorm: 6634631 Milliliter(s) IM 01/30/2019 01/30/2019 In active testosterone cypiona te 200 mg/mL intramuscular oil RxNorm: 6080489 1/2 Milliliter(s) IM [id number] 01/16/2019 05/15/2019 Active testosterone cypiona te 200 mg/mL intramuscular oil RxNorm: 4799920 Milliliter(s) IM 01/16/2019 01/16/2019 In active hydrocodone 5 mg-linh taminophen 325 mg tablet RxNorm: 254082 1 Tablet(s) PO Q6-8H as needed 01/14/2019 02/07/2019 Inactive testosterone cypiona te 200 mg/mL intramuscular oil RxNorm: 0799364 Milliliter(s) IM 01/01/2019 01/01/2019 In active Xanax 0.5 mg tablet RxNorm: 889062 1 Tablet(s) PO TID 12/18/2018 02/14/2019 Inactive testosterone cypiona te 200 mg/mL intramuscular oil RxNorm: 8833010 Milliliter(s) IM 12/17/2018 12/17/2018 In active hydrocodone 5 mg-linh taminophen 325 mg tablet RxNorm: 905427 1 Tablet(s) PO Q6-8H as needed 12/15/2018 01/08/2019 Inactive testosterone cypiona te 200 mg/mL intramuscular oil RxNorm: 6411966 Milliliter(s) IM 12/02/2018 12/02/2018 In active testosterone cypiona te 200 mg/mL intramuscular oil RxNorm: 0464800 Milliliter(s) IM 11/18/2018 11/18/2018 In active hydrocodone 5 mg-linh taminophen 325 mg tablet RxNorm: 793304 1 Tablet(s) PO Q6-8H as needed 11/13/2018 12/07/2018 Inactive testosterone cypiona te 200 mg/mL intramuscular oil RxNorm: 7734652 1/2 Milliliter(s) IM [id number] 11/04/2018 01/15/2019 Inactive testosterone cypiona te 200 mg/mL intramuscular oil RxNorm: 4310858 Milliliter(s) IM 11/04/2018 11/04/2018 In active nicotine 21 mg/24 hr daily transdermal patch RxNorm: 754717 1 TD daily 10/31/2018 10/30/2018 In active nicotine 21 mg/24 hr daily transdermal patch RxNorm: 239690 1 TD daily 10/31/2018 11/29/2018 In active meclizine 25 mg tablet RxNorm: 648386 1 Tablet(s) PO Q6 PRN TAKE ONE TABLET BY MOUTH EVERY 6 HOURS NEEDED 10/17/2018 01/14/2019 Inactive hydrocodone 5 mg-linh taminophen 325 mg tablet RxNorm: 566056 1 Tablet(s) PO Q6-8H as needed 10/17/2018 11/10/2018 Inactive metformin 500 mg tablet RxNorm: 887012 Tablet(s) TAKE 1 TABLET BY MOUTH DAILY 10/15/2018 10/09/2019 Ac tive lisinopril 10 mg tablet RxNorm: 049261 TAKE 1 TABLET BY MOUTH TWO TIMES DAILY 10/15/2018 10/09/2019 Ac tive - First Attempt Ref: [id number] testosterone cypiona te 200 mg/mL intramuscular oil RxNorm: 5469829 Milliliter(s) IM 10/14/2018 10/14/2018 In active Xanax 0.5 mg tablet RxNorm: 473496 1 Tablet(s) PO TID 10/03/2018 11/30/2018 Inactive testosterone cypiona te 200 mg/mL intramuscular oil RxNorm: 8451811 1/2 Milliliter(s) IM weekly 10/03/2018 11/03/2018 Inactive testosterone cypiona te 200 mg/mL intramuscular oil RxNorm: 0393736 Milliliter(s) IM 10/03/2018 10/03/2018 In active testosterone cypiona te 200 mg/mL intramuscular oil RxNorm: 7142083 Milliliter(s) IM 09/23/2018 09/23/2018 In active hydrocodone 5 mg-linh taminophen 325 mg tablet RxNorm: 323805 1 Tablet(s) PO Q6-8H as needed 09/22/2018 10/16/2018 Inactive testosterone cypiona te 200 mg/mL intramuscular oil RxNorm: 3377606 1/2 Milliliter(s) IM 09/02/2018 09/02/2018 Inactive testosterone enantha te 200 mg/mL intramuscular oil RxNorm: 024019 Milliliter(s) IM 08/21/2018 08/21/2018 In active hydrocodone 5 mg-linh taminophen 325 mg tablet RxNorm: 386452 1 Tablet(s) PO Q6-8H as needed 08/21/2018 09/14/2018 Inactive testosterone cypiona te 200 mg/mL intramuscular oil RxNorm: 1627457 Milliliter(s) IM 08/08/2018 08/08/2018 In active testosterone cypiona te 200 mg/mL intramuscular oil RxNorm: 7568145 1/2 Milliliter(s) IM 07/28/2018 07/28/2018 Inactive hydrocodone 5 mg-linh taminophen 325 mg tablet RxNorm: 511405 1 Tablet(s) PO Q6-8H as needed 07/21/2018 08/14/2018 Inactive testosterone cypiona te 200 mg/mL intramuscular oil RxNorm: 921105 Milliliter(s) IM 07/16/2018 07/16/2018 In active testosterone cypiona te 200 mg/mL intramuscular oil RxNorm: 970393 Milliliter(s) IM 07/02/2018 07/02/2018 In active Xanax 0.5 mg tablet RxNorm: 136290 1 Tablet(s) PO TID 06/27/2018 08/24/2018 Inactive testosterone cypiona te 200 mg/mL intramuscular oil RxNorm: 424064 Milliliter(s) IM 06/24/2018 06/24/2018 In active hydrocodone 5 mg-linh taminophen 325 mg tablet RxNorm: 261433 1 Tablet(s) PO Q6-8H as needed 06/23/2018 07/17/2018 Inactive testosterone cypiona te 200 mg/mL intramuscular oil RxNorm: 933605 Milliliter(s) IM 06/13/2018 06/13/2018 In active testosterone cypiona te 200 mg/mL intramuscular oil RxNorm: 172306 Milliliter(s) IM 06/05/2018 06/05/2018 In active testosterone cypiona te 200 mg/mL intramuscular oil RxNorm: 5798108 1/2 Milliliter(s) IM weekly 05/30/2018 09/26/2018 Inactive testosterone cypiona te 200 mg/mL intramuscular oil RxNorm: 263926 Milliliter(s) IM 05/30/2018 05/30/2018 In active testosterone cypiona te 200 mg/mL intramuscular oil RxNorm: 363453 Milliliter(s) IM 05/22/2018 05/22/2018 In active hydrocodone 5 mg-linh taminophen 325 mg tablet RxNorm: 755940 1 Tablet(s) PO Q6-8H as needed 05/20/2018 06/13/2018 Inactive testosterone cypiona te 200 mg/mL intramuscular oil RxNorm: 942658 1/2 Milliliter(s) IM 05/12/2018 05/12/2018 Inactive testosterone cypiona te 200 mg/mL intramuscular oil RxNorm: 683561 Milliliter(s) IM 05/02/2018 05/02/2018 In active testosterone cypiona te 200 mg/mL intramuscular oil RxNorm: 044409 1/2 Milliliter(s) IM weekly 04/24/2018 05/29/2018 Inactive testosterone cypiona te 200 mg/mL intramuscular oil RxNorm: 568280 0.5 Milliliter(s) IM 04/24/2018 04/24/2018 Inactive hydrocodone 5 mg-linh taminophen 325 mg tablet RxNorm: 705447 1 Tablet(s) PO Q6-8H as needed 04/22/2018 05/16/2018 Inactive testosterone cypiona te 200 mg/mL intramuscular oil RxNorm: 546507 1/2 Milliliter(s) IM 04/17/2018 04/17/2018 Inactive testosterone cypiona te 200 mg/mL intramuscular oil RxNorm: 790105 1/2 Milliliter(s) IM weekly 04/16/2018 04/23/2018 Inactive Jardiance 10 mg tablet RxNorm: 8872586 1 Tablet(s) PO daily 04/04/2018 12/29/2018 Inactive testosterone cypiona te 200 mg/mL intramuscular oil RxNorm: 653968 1 Milliliter(s) IM monthly 04/04/2018 04/15/2018 Inactive Protonix 40 mg table t,delayed release RxNorm: 110414 1 Tablet(s) PO daily TAKE 1 TABLET BY MOUTH DAILY 04/04/2018 02/01/2019 Inactive - Ref: [id number] hydrocodone 5 mg-linh taminophen 325 mg tablet RxNorm: 241213 1 Tablet(s) PO Q6-8H as needed 03/19/2018 04/12/2018 Inactive Flomax 0.4 mg capsule RxNorm: 802260 1 Capsule(s) PO daily 03/10/2018 03/04/2019 Inactive Urecholine 25 mg tablet RxNorm: 784681 1 Tablet(s) PO BID 03/10/2018 07/07/2018 Inactive ketorolac 60 mg/2 mL intramuscular solution RxNorm: 9824831 Milliliter(s) IM 03/07/2018 03/07/2018 In active metformin 500 mg tablet RxNorm: 717596 Tablet(s) TAKE 1 TABLET BY MOUTH DAILY 02/20/2018 02/13/2019 In active 1 q am and 1/2 tab q pm hydrocodone 5 mg-linh taminophen 325 mg tablet RxNorm: 205609 1 Tablet(s) PO Q6-8H as needed 02/20/2018 03/16/2018 Inactive Kenalog 40 mg/mL bartolome pension for injection RxNorm: 4859194 1.5 Milliliter(s) In j 01/30/2018 01/30/2018 In active hydrocodone 5 mg-linh taminophen 325 mg tablet RxNorm: 462200 1 Tablet(s) PO Q6-8H as needed 01/23/2018 02/16/2018 Inactive Urecholine 25 mg tablet RxNorm: 166942 1 Tablet(s) PO BID 01/22/2018 03/09/2018 Inactive Flomax 0.4 mg capsule RxNorm: 718605 1 Capsule(s) PO daily 01/22/2018 03/09/2018 Inactive Flomax 0.4 mg capsule RxNorm: 390379 1 Capsule(s) PO daily 01/22/2018 01/21/2018 Inactive Urecholine 25 mg tablet RxNorm: 062025 1 Tablet(s) PO BID 01/22/2018 01/21/2018 Inactive testosterone cypiona te 200 mg/mL intramuscular oil RxNorm: 482842 Milliliter(s) IM 01/17/2018 01/17/2018 In active testosterone cypiona te 200 mg/mL intramuscular oil RxNorm: 944918 1 Milliliter(s) IM monthly 01/17/2018 04/03/2018 Inactive doxycycline hyclate 100 mg tablet RxNorm: 311858 1 Tablet(s) PO BID 01/14/2018 01/23/2018 Inactive lisinopril 10 mg tablet RxNorm: 426088 TAKE 1 TABLET BY MOUTH TWO TIMES DAILY 01/14/2018 10/14/2018 In active - First Attempt Ref: [id number] nystatin 100,000 uni t/mL oral suspension RxNorm: 507725 4 Milliliter(s) PO QI D Swish and swallow 01/08/2018 01/07/2018 Inactive nystatin 100,000 uni t/mL oral suspension RxNorm: 107110 4 Milliliter(s) PO QI D Swish and swallow 01/08/2018 01/12/2018 Inactive Xanax 0.5 mg tablet RxNorm: 121708 1 Tablet(s) PO TID 01/08/2018 12/23/2018 Inactive simvastatin 40 mg ta blet RxNorm: 348231 TAKE 1 TABLET BY MOUT H DAILY AT BEDTIME 12/30/2017 12/24/2018 In active - First Attempt Ref: [id number] metformin 500 mg tablet RxNorm: 165667 TAKE 1 TABLET BY MOUTH DAILY 12/30/2017 02/19/2018 Inactive - First Attempt Ref: [id number] hydrocodone 5 mg-linh taminophen 325 mg tablet RxNorm: 502489 1 Tablet(s) PO Q6-8H as needed 12/25/2017 01/18/2018 Inactive Protonix 40 mg table t,delayed release RxNorm: 773052 Tablet(s) TAKE 1 TABL ET BY MOUTH DAILY 11/20/2017 04/03/2018 Inactive - Ref: [id number] Linzess 72 mcg capsule RxNorm: 1754827 1 Capsule(s) PO daily 11/19/2017 No Stop Date Active hydrocodone 5 mg-linh taminophen 325 mg tablet RxNorm: 652214 1 Tablet(s) PO Q6-8H as needed 11/19/2017 12/13/2017 Inactive hydrocodone 5 mg-linh taminophen 325 mg tablet RxNorm: 075804 1 Tablet(s) PO Q6-8H as needed 10/28/2017 11/18/2017 Inactive Xanax 0.5 mg tablet RxNorm: 703490 1 Tablet(s) PO TID 10/25/2017 12/22/2017 Inactive Xanax 0.5 mg tablet RxNorm: 000859 TAKE ONE TABLET BY MOUTH THREE TIMES A D AY 10/24/2017 12/01/2018 In active hydrocodone 5 mg-linh taminophen 325 mg tablet RxNorm: 119190 1 Tablet(s) PO Q6-8H as needed 09/30/2017 10/24/2017 Inactive Protonix 40 mg table t,delayed release RxNorm: 576380 TAKE 1 TABLET BY MOUT H DAILY 09/16/2017 11/19/2017 In active - Ref: [id number] Yovana WheeleroStar 300 unit/mL (1.5 mL) subcutaneous insulin pen RxNorm: 5506176 35 Unit(s) SQ QHS 08/30/2017 03/02/2019 Inactive dosage increase hydrocodone 5 mg-linh taminophen 325 mg tablet RxNorm: 487080 1 Tablet(s) PO Q6-8H as needed 08/28/2017 09/29/2017 Inactive hydrocodone 5 mg-linh taminophen 325 mg tablet RxNorm: 849978 1 Tablet(s) PO Q6-8H as needed 07/23/2017 08/24/2017 Inactive lisinopril 10 mg tablet RxNorm: 083760 1 Tablet(s) PO BID Take 1 tablet by mout h daily 07/23/2017 01/13/2018 Inactive hydrocodone 5 mg-linh taminophen 325 mg tablet RxNorm: 122081 1 Tablet(s) PO Q6-8H as needed 06/27/2017 07/22/2017 Inactive Xanax 0.5 mg tablet RxNorm: 103570 1 Tablet(s) PO TID 06/18/2017 10/25/2017 Inactive hydrocodone 5 mg-linh taminophen 325 mg tablet RxNorm: 902980 1 Tablet(s) PO Q6-8H as needed 05/27/2017 06/26/2017 Inactive Levaquin 500 mg tablet RxNorm: 045606 1 Tablet(s) PO daily 05/24/2017 05/23/2017 Inactive Levaquin 500 mg tablet RxNorm: 598264 1 Tablet(s) PO daily 05/24/2017 05/30/2017 Inactive Protonix 40 mg table t,delayed release RxNorm: 004077 Take 1 tablet by mout h daily 04/29/2017 09/15/2017 In active - Ref: [id number] hydrocodone 5 mg-linh taminophen 325 mg tablet RxNorm: 304958 1 Tablet(s) PO Q6-8H as needed 04/25/2017 05/26/2017 Inactive metformin 500 mg tablet RxNorm: 301280 Take 1 tablet by mouth daily 04/08/2017 12/29/2017 Inactive - First Attempt Ref: [id number] hydrocodone 5 mg-linh taminophen 325 mg tablet RxNorm: 330114 1 Tablet(s) PO Q6-8H as needed 03/27/2017 04/24/2017 Inactive hydrocodone 5 mg-linh taminophen 325 mg tablet RxNorm: 623762 1 Tablet(s) PO Q6-8H as needed 02/25/2017 03/26/2017 Inactive Protonix 40 mg table t,delayed release RxNorm: 092729 Tablet(s) Take 1 tabl et by mouth BID 02/25/2017 04/28/2017 Inactive Protonix 40 mg table t,delayed release RxNorm: 668994 Tablet(s) Take 1 tabl et by mouth BID 02/19/2017 02/18/2017 Inactive Protonix 40 mg table t,delayed release RxNorm: 022465 Tablet(s) Take 1 tabl et by mouth BID 02/19/2017 02/24/2017 Inactive lisinopril 10 mg tablet RxNorm: 081568 Take 1 tablet by mouth daily 01/29/2017 07/22/2017 Inactive - First Attempt Ref: [id number] hydrocodone 5 mg-linh taminophen 325 mg tablet RxNorm: 021841 1 Tablet(s) PO Q6-8H as needed 01/25/2017 02/24/2017 Inactive simvastatin 40 mg ta blet RxNorm: 955517 Tablet(s) Take 1 tabl et by mouth daily at bedtime 01/03/2017 12/28/2017 Inactive lisinopril 10 mg tablet RxNorm: 257845 Tablet(s) Take 1 tablet by mouth daily 01/03/2017 01/28/2017 In active Protonix 40 mg table t,delayed release RxNorm: 449910 Tablet(s) Take 1 tabl et by mouth daily 12/28/2016 02/18/2017 Inactive hydrocodone 5 mg-linh taminophen 325 mg tablet RxNorm: 613838 1 Tablet(s) PO Q6-8H as needed 12/26/2016 01/24/2017 Inactive Xanax 0.5 mg tablet RxNorm: 000603 1 Tablet(s) PO TID 12/12/2016 03/11/2017 Inactive simvastatin 40 mg ta blet RxNorm: 636633 Tablet(s) Take 1 tabl et by mouth daily at bedtime 11/30/2016 01/02/2017 Inactive simvastatin 40 mg ta blet RxNorm: 678977 Take 1 tablet by mout h daily at bedtime 11/29/2016 11/29/2016 In active - First Attempt Ref: [id number] Protonix 40 mg table t,delayed release RxNorm: 598513 Take 1 tablet by mout h daily 11/27/2016 12/27/2016 In active - First Attempt Ref: [id number] hydrocodone 5 mg-linh taminophen 325 mg tablet RxNorm: 975001 1 Tablet(s) PO Q6-8H as needed 11/26/2016 12/25/2016 Inactive hydrocodone 5 mg-linh taminophen 325 mg tablet RxNorm: 350316 1 Tablet(s) PO Q8 as needed 10/24/2016 11/25/2016 Inactive Xanax 0.5 mg tablet RxNorm: 558833 1 Tablet(s) PO TID 10/09/2016 12/25/2016 Inactive hydrocodone 5 mg-linh taminophen 325 mg tablet RxNorm: 879544 1 Tablet(s) PO Q8 as needed 09/27/2016 10/23/2016 Inactive lisinopril 10 mg tablet RxNorm: 390433 Take 1 tablet by mouth daily 09/25/2016 01/02/2017 Inactive - First Attempt Ref: [id number] Vitamin D2 50,000 un it capsule RxNorm: 134496 1 Capsule(s) PO QW 09/06/2016 12/01/2018 Inactive hydrocodone 5 mg-linh taminophen 325 mg tablet RxNorm: 534039 1 Tablet(s) PO Q8 as needed 08/28/2016 09/26/2016 Inactive Toujeo SoloStar 300 unit/mL (1.5 mL) subcutaneous insulin pen RxNorm: 3985817 25 Unit(s) SQ QHS 08/23/2016 08/29/2017 Inactive dosage increase hydrocodone 5 mg-linh taminophen 325 mg tablet RxNorm: 146134 1 Tablet(s) PO Q8 as needed 07/26/2016 08/27/2016 Inactive Protonix 40 mg table t,delayed release RxNorm: 861059 Take 1 tablet by mout h daily 07/24/2016 11/26/2016 In active - First Attempt Ref: [id number] hydrocodone 5 mg-linh taminophen 325 mg tablet RxNorm: 989923 1 Tablet(s) PO Q8 as needed 06/19/2016 07/21/2016 Inactive Touparadisejae SoloStar 300 unit/mL (1.5 mL) subcutaneous insulin pen RxNorm: 9322516 32 Unit(s) SQ QHS 05/30/2016 08/22/2016 Inactive dosage increase hydrocodone 5 mg-linh taminophen 325 mg tablet RxNorm: 008796 1 Tablet(s) PO Q8 as needed 05/22/2016 06/18/2016 Inactive hydrocodone 5 mg-linh taminophen 325 mg tablet RxNorm: 315547 1 Tablet(s) PO Q8 as needed 04/18/2016 05/17/2016 Inactive Protonix 40 mg table t,delayed release RxNorm: 329817 Take 1 tablet by mout h daily 04/05/2016 07/03/2016 In active - Ref: [id number] metformin 500 mg tablet RxNorm: 265324 Take 1 tablet by mouth daily 04/04/2016 07/02/2016 Inactive - Ref: [id number] Xanax 0.5 mg tablet RxNorm: 131061 1 Tablet(s) PO TID 03/30/2016 09/25/2016 Inactive Xanax 0.5 mg tablet RxNorm: 071716 1 Tablet(s) PO TID 03/23/2016 12/25/2016 Inactive hydrocodone 5 mg-linh taminophen 325 mg tablet RxNorm: 720446 1 Tablet(s) PO Q8 as needed 03/06/2016 04/04/2016 Inactive Cipro 500 mg tablet RxNorm: 828115 1 Tablet(s) PO BID 02/24/2016 03/04/2016 Inactive Miralax 17 gram oral powder packet RxNorm: 120194 1 packet PO every oth er day 01/27/2016 No Stop Date Active hydrocodone 5 mg-linh taminophen 325 mg tablet RxNorm: 844016 1 Tablet(s) PO Q8 as needed 01/27/2016 02/25/2016 Inactive lisinopril 10 mg tablet RxNorm: 653826 1 Tablet(s) PO daily 01/12/2016 09/24/2016 Inactive simvastatin 40 mg ta blet RxNorm: 647581 1 Tablet(s) PO QHS 01/12/2016 11/28/2016 Inactive simvastatin 40 mg ta blet RxNorm: 574466 1 Tablet(s) PO QHS 01/11/2016 01/11/2016 Inactive lisinopril 10 mg tablet RxNorm: 271872 1 Tablet(s) PO daily 01/06/2016 01/11/2016 Inactive simvastatin 40 mg ta blet RxNorm: 050900 1 Tablet(s) PO daily 12/28/2015 01/10/2016 Inactive hydrocodone 5 mg-linh taminophen 325 mg tablet RxNorm: 450288 1 Tablet(s) PO Q8 as needed 12/27/2015 01/26/2016 Inactive Xanax 0.5 mg tablet RxNorm: 736143 1 Tablet(s) PO TID 11/30/2015 03/29/2016 Inactive Toujeo SoloStar 300 unit/mL (1.5 mL) subcutaneous insulin pen RxNorm: 1705459 30 Unit(s) SQ QHS 11/25/2015 05/29/2016 Inactive dosage increase meclizine 25 mg tablet RxNorm: 559460 1 Tablet(s) PO Q6 PRN TAKE ONE TABLET BY MOUTH EVERY 6 HOURS NEEDED 11/25/2015 02/22/2016 Inactive omeprazole 20 mg cap jacquelyn,delayed release RxNorm: 966850 1 Capsule(s) PO daily 10/06/2015 01/26/2016 In active Toujeo SoloStar 300 unit/mL (1.5 mL) subcutaneous insulin pen RxNorm: 9242417 35 Unit(s) SQ QHS 08/02/2015 11/24/2015 Inactive dosage increase Vitamin D2 50,000 un it capsule RxNorm: 344366 1 Capsule(s) PO QW 08/02/2015 09/05/2016 Inactive hydrocodone 5 mg-ilnh taminophen 325 mg tablet RxNorm: 715359 1 Tablet(s) PO Q8 as needed 07/11/2015 12/26/2015 Inactive Xanax 0.5 mg tablet RxNorm: 369436 1 Tablet(s) PO TID 06/30/2015 06/29/2015 Inactive Xanax 0.5 mg tablet RxNorm: 583908 1 Tablet(s) PO TID 06/30/2015 12/25/2015 Inactive hydrocodone 5 mg-linh taminophen 325 mg tablet RxNorm: 338233 1 Tablet(s) PO Q8 as needed 05/06/2015 07/10/2015 Inactive Symbicort 160 mcg-4. 5 mcg/actuation HFA aerosol inhaler RxNorm: 8133419 INH 04/25/2015 No Stop Date Active Levemir FlexTouch 10 0 unit/mL (3 mL) subcutaneous insulin pen RxNorm: 463892 30 Unit(s) SQ QHS 04/25/2015 11/24/2015 Inactive prednisone 20 mg tablet RxNorm: 779175 1 Tablet(s) PO BID 04/25/2015 04/29/2015 Inactive metformin 500 mg tablet RxNorm: 223694 1 Tablet(s) PO daily 04/25/2015 04/03/2016 Inactive amoxicillin 500 mg c apsule RxNorm: 853104 1 Capsule(s) PO TID 04/14/2015 04/13/2015 Inactive amoxicillin 500 mg c apsule RxNorm: 945842 1 Capsule(s) PO TID a nd recommend probiotic tid (otc) 04/14/2015 04/20/2015 Inactive Kenalog 40 mg/mL bartolome pension for injection RxNorm: 0068979 Milliliter(s) Inj 04/12/2015 04/12/2015 In active hydrocodone 5 mg-linh taminophen 325 mg tablet RxNorm: 334408 1 Tablet(s) PO Q8 as needed 03/30/2015 05/05/2015 Inactive Lantus 100 unit/mL s ubcutaneous solution RxNorm: 941942 25 Unit(s) SQ QPM 03/24/2015 04/25/2015 In active meclizine 25 mg tablet RxNorm: 929840 Tablet(s) TAKE ONE TABLET BY MOUTH EVERY 6 HOURS NEEDED 03/08/2015 04/06/2015 Inactive meclizine 25 mg tablet RxNorm: 824955 TAKE ONE TABLET BY MOUTH EVERY 6 HOURS A S NEEDED 02/25/2015 03/03/2015 Inactive Lantus 100 unit/mL s ubcutaneous solution RxNorm: 126427 20 Unit(s) SQ QPM 02/23/2015 03/23/2015 In active Lantus 100 unit/mL s ubcutaneous solution RxNorm: 276654 25 Unit(s) SQ QPM 02/23/2015 02/22/2015 In active hydrocodone 5 mg-linh taminophen 325 mg tablet RxNorm: 158228 1 Tablet(s) PO Q8 as needed 02/17/2015 03/29/2015 Inactive Xanax 0.5 mg tablet RxNorm: 755277 1 Tablet(s) PO TID 02/03/2015 06/29/2015 Inactive Lantus 100 unit/mL s ubcutaneous solution RxNorm: 885719 20 Unit(s) SQ QPM 12/29/2014 02/22/2015 In active Phenergan 12.5 mg re ctal suppository RxNorm: 445571 1 Suppository RTL Q6 PRN 12/23/2014 No Stop Date Active nausea Kenalog 40 mg/mL bartolome pension for injection RxNorm: 8884800 Milliliter(s) Inj 12/23/2014 12/23/2014 In active prednisone 20 mg tablet RxNorm: 301404 2 Tablet(s) PO daily 12/13/2014 12/17/2014 Inactive prednisone 20 mg tablet RxNorm: 496569 2 Tablet(s) PO daily 12/13/2014 12/12/2014 Inactive meclizine 25 mg tablet RxNorm: 132003 1 Tablet(s) PO Q6 PRN 12/09/2014 02/24/2015 Inactive hydrocodone 5 mg-linh taminophen 325 mg tablet RxNorm: 381578 1 Tablet(s) PO Q8 as needed 12/09/2014 02/16/2015 Inactive Vitamin B-12 1,000 m cg/mL oral drops RxNorm: 0916390 1 Milliliter(s) PO d aily No Start Date Active Alphagan P 0.1 % eye drops RxNorm: 184027 1 Drop(s) OPH BID No Start Date Active aspirin 325 mg table t,delayed release RxNorm: 371514 1 Tablet(s) PO daily No Start Date Active Tricor 145 mg tablet RxNorm: 955110 1 Tablet(s) PO daily No Start Date Active vitamin [id number] B1 oral liquid RxNorm: 1,000 Microgram(s) PO daily No Start Date Active atenolol 50 mg tablet RxNorm: 743069 1 Tablet(s) PO daily No Start Date Active Protonix 40 mg table t,delayed release RxNorm: 011705 1 Tablet(s) PO daily No Start Date 04/04/2016 Inactive glipizide 10 mg tablet RxNorm: 555950 1 Tablet(s) PO BID No Start Date 03/22/2015 Inactive Lantus 100 unit/mL s ubcutaneous solution RxNorm: 082112 15 Unit(s) SQ QPM No Start Date 12/28/2014 Inactive lisinopril 10 mg tablet RxNorm: 326935 1 Tablet(s) PO daily No Start Date 01/05/2016 Inactive Vitamin D2 50,000 un it capsule RxNorm: 574962 1 Capsule(s) PO QW No Start Date 08/01/2015 Inactive Toujeo SoloStar 300 unit/mL (1.5 mL) subcutaneous insulin pen RxNorm: 4384093 30 Unit(s) SQ QHS No Start Date 08/01/2015 Inactive simvastatin 40 mg ta blet RxNorm: 436906 1 Tablet(s) PO daily No Start Date 12/27/2015 Inactive testosterone cypiona te 200 mg/mL intramuscular oil RxNorm: 003029 1 Milliliter(s) IM monthly No Start Date 01/16/2018 Inactive hydrocodone 5 mg-linh taminophen 325 mg tablet RxNorm: 146706 1 Tablet(s) PO Q8 as needed No Start Date 12/08/2014 Inactive metformin 500 mg tablet RxNorm: 045998 1 Tablet(s) PO daily No Start Date 04/24/2015 Inactive omeprazole 20 mg cap jacquelyn,delayed release RxNorm: 625405 1 Capsule(s) PO daily No Start Date 10/05/2015 Inactive Flomax 0.4 mg capsule RxNorm: 901808 1 Capsule(s) PO daily No Start Date 03/23/2015 Inactive Medication Administered Medication Codes Instruc tions Start Date Status testosterone cypionate 200 mg/mL intramuscular oil RxNorm: 5011587 1/2Milliliter 03/04/2019 No longer Active testosterone cypionate 200 mg/mL intramuscular oil RxNorm: 9680100 Milliliter 02/16/2019 No longer Active testosterone cypionate 200 mg/mL intramuscular oil RxNorm: 0399027 Milliliter 01/30/2019 No longer Active testosterone cypionate 200 mg/mL intramuscular oil RxNorm: 3726504 Milliliter 01/16/2019 No longer Active testosterone cypionate 200 mg/mL intramuscular oil RxNorm: 1800950 Milliliter 01/01/2019 No longer Active testosterone cypionate 200 mg/mL intramuscular oil RxNorm: 3585125 Milliliter 12/17/2018 No longer Active testosterone cypionate 200 mg/mL intramuscular oil RxNorm: 0962597 Milliliter 12/02/2018 No longer Active testosterone cypionate 200 mg/mL intramuscular oil RxNorm: 4237644 Milliliter 11/18/2018 No longer Active testosterone cypionate 200 mg/mL intramuscular oil RxNorm: 0481837 Milliliter 11/04/2018 No longer Active testosterone cypionate 200 mg/mL intramuscular oil RxNorm: 6274114 Milliliter 10/14/2018 No longer Active testosterone cypionate 200 mg/mL intramuscular oil RxNorm: 1785884 Milliliter 10/03/2018 No longer Active testosterone cypionate 200 mg/mL intramuscular oil RxNorm: 8272736 Milliliter 09/23/2018 No longer Active testosterone cypionate 200 mg/mL intramuscular oil RxNorm: 5325983 1/2Milliliter 09/02/2018 No longer Active testosterone enanthate 200 mg/mL intramuscular oil RxNorm: 622872 Milliliter 08/21/2018 No longer Active testosterone cypionate 200 mg/mL intramuscular oil RxNorm: 9746824 Milliliter 08/08/2018 No longer Active testosterone cypionate 200 mg/mL intramuscular oil RxNorm: 3103871 /2Milliliter 07/28/2018 No longer Active testosterone cypionate 200 mg/mL intramuscular oil RxNorm: 120405 Milliliter 07/16/2018 No longer Active testosterone cypionate 200 mg/mL intramuscular oil RxNorm: 591154 Milliliter 07/02/2018 No longer Active testosterone cypionate 200 mg/mL intramuscular oil RxNorm: 496854 Milliliter 06/24/2018 No longer Active testosterone cypionate 200 mg/mL intramuscular oil RxNorm: 882494 Milliliter 06/13/2018 No longer Active testosterone cypionate 200 mg/mL intramuscular oil RxNorm: 268185 Milliliter 06/05/2018 No longer Active testosterone cypionate 200 mg/mL intramuscular oil RxNorm: 049732 Milliliter 05/30/2018 No longer Active testosterone cypionate 200 mg/mL intramuscular oil RxNorm: 943738 Milliliter 05/22/2018 No longer Active testosterone cypionate 200 mg/mL intramuscular oil RxNorm: 251912 1/2Milliliter 05/12/2018 No longer Active testosterone cypionate 200 mg/mL intramuscular oil RxNorm: 330833 Milliliter 05/02/2018 No longer Active testosterone cypionate 200 mg/mL intramuscular oil RxNorm: 454778 0.5Milliliter 04/24/2018 No longer Active testosterone cypionate 200 mg/mL intramuscular oil RxNorm: 954982 1/2Milliliter 04/17/2018 No longer Active ketorolac 60 mg/2 mL intramuscular solution RxNorm: 3213529 Milliliter 03/07/2018 No longer Active Kenalog 40 mg/mL suspension for injection RxNorm: 6178828 1.5Milliliter 01/30/2018 No longer Active testosterone cypionate 200 mg/mL intramuscular oil RxNorm: 791677 Milliliter 01/17/2018 No longer Active Kenalog 40 mg/mL suspension for injection RxNorm: 4040474 Milliliter 04/12/2015 No longer Active Kenalog 40 mg/mL suspension for injection RxNorm: 1317254 Milliliter 12/23/2014 No longer Active Immunizations Vaccine Codes Date Status Influenza CVX: 141 06/06 completed Influenza CVX: 141 04/25 completed Pneumococcal (Adult) CVX: 133 04/25/2017 completed Influenza CVX: 141 05/22 completed Assessments Condition Codes Effectiv e Dates Anemia, unspecified ICD-10: D64.9 ICD-9: 285.9 03/05/2019 Testicular dysfunction, unspecified ICD-10: E29.9 ICD-9: 257.9 03/04/2019 Mixed hyperlipidemia ICD-10: E78.2 ICD-9: 272.2 03/03/2019 [...] Code Item Item Code Result Date B12 Hnd809 B12 432.00 pg/ml 03/05/2019 %Hba1C Eog124 % HbA1c 40531-8 7.9 % 03/04/2019 %Hba1C Kwn359 Gluc Ave 180 mg/dL 03/04/2019 Testosterone Mgj627 Testo 142.2 ng/dL 03/04/2019 Cbc With Differential [...] 33.6 pg 03/04/2019 Cbc With Differential Ord2 [place]% 6.9 % 03/04/2019 Cbc With Differential Ord2 [...] 2.56 K/ul 03/04/2019 Cbc With Differential Ord2 [place] ABS# 0.5 K/ul 03/04/2019 Cbc With Differential Ord2 Eos ABS# 0.4 K/ul 03/04/2019 Cbc With Differential Ord2 Baso ABS# 0.0 K/ul 03/04/2019 Lipid Ord30 CHOL 114 mg/dL 03/04/2019 Lipid Ord30 HDL 25.0 mg/dl 03/04/2019 Lipid Ord30 TRIG 119 mg/dL 03/04/2019 Lipid Ord30 LDL 65 mg/dL 03/04/2019 Lipid Ord30 C/HDL 4.6 Ratio 03/04/2019 Tsh Ord6 TSH (3rd IS) 3.85 uIU/mL 03/04/2019 Comp Metabolic Yyh901 NA 142 mEq/L 03/04/2019 Comp Metabolic Xsr608 K 4.5 mEq/L 03/04/2019 Comp Metabolic Oex221 CL 105 mEq/L 03/04/2019 Comp Metabolic Ubw889 CO2 30.0 mEq/L 03/04/2019 Comp Metabolic Zid979 AN ION GAP 12 03/04/2019 Comp Metabolic Pmk610 GL UCOSE 92 mg/dL 03/04/2019 Comp Metabolic Tbp968 Cr eat 1.0 mg/dL 03/04/2019 Comp Metabolic Mtf668 eG FR 80 ml/min/1.73m2 03/04 Comp Metabolic Stm331 BUN 20 mg/dL 03/04/2019 Comp Metabolic Efm303 B/ C Ratio 20.8 Ratio 03/04/2019 Comp Metabolic Efo869 CA LCIUM 9.0 mg/dL 03/04/2019 Comp Metabolic Cjc081 AL K PHOS 67 U/L 03/04/2019 Comp Metabolic Cag414 T(SGOT) 17 U/L 03/04/2019 Comp Metabolic Cdl875 AL T(SGPT) 17 U/L 03/04/2019 Comp Metabolic Wgx076 BI LI T 0.4 mg/dL 03/04/2019 Comp Metabolic Byo624 AL BUMIN 3.9 g/dL 03/04/2019 Comp Metabolic Ipm494 TP RO 6.5 g/dL 03/04/2019 Comp Metabolic Klq028 GL OB 2.6 g/dL 03/04/2019 Comp Metabolic Avq191 A/ G Ratio 1.5 Ratio 03/04/2019 Comp Metabolic Jrf842 Os mo 285 mOsmo 03/04/2019 Cbc With [...] 33.4 pg 12/02/2018 Cbc With Differential Ord2 [place]% 8.0 % 12/02/2018 Cbc With Differential Ord2 [...] 2.13 K/ul 12/02/2018 Cbc With Differential Ord2 [place] ABS# 0.6 K/ul 12/02/2018 Cbc With Differential Ord2 Eos ABS# 0.4 K/ul 12/02/2018 Cbc With Differential Ord2 Baso ABS# 0.0 K/ul 12/02/2018 Testosterone Moo086 Testo 213.5 ng/dL 12/02/2018 A1C Frequency Qoc856 A1CF 17070-9 Last A1C performed at [facility]: 201812/02/2018 Testosterone Awk553 Testo 669.0 ng/dL 09/08/2018 %Hba1C Avz086 % HbA1c 19568-1 7.4 % 09/08/2018 %Hba1C Jsr456 Gluc Ave 166 mg/dL 09/08/2018 Lipid Ord30 CHOL 114 mg/dL 09/08/2018 Lipid Ord30 HDL 28.0 mg/dl 09/08/2018 Lipid Ord30 TRIG 154 mg/dL 09/08/2018 Lipid Ord30 LDL 55 mg/dL 09/08/2018 Lipid Ord30 C/HDL 4.1 Ratio 09/08/2018 Comp Metabolic Qvc194 NA 137 mEq/L 09/08/2018 Comp Metabolic Igd729 K 4.3 mEq/L 09/08/2018 Comp Metabolic Ney173 CL 100 mEq/L 09/08/2018 Comp Metabolic Jfe779 CO2 27.0 mEq/L 09/08/2018 Comp Metabolic Non091 AN ION GAP 14 09/08/2018 Comp Metabolic Xhq227 GL UCOSE 85 mg/dL 09/08/2018 Comp Metabolic Zrt535 Cr eat 1.1 mg/dL 09/08/2018 Comp Metabolic Iod592 eG FR 70 ml/min/1.73m2 09/08 Comp Metabolic Vrp010 BUN 11 mg/dL 09/08/2018 Comp Metabolic Jvc988 B/ C Ratio 10.3 Ratio 09/08/2018 Comp Metabolic Tfm907 CA LCIUM 9.2 mg/dL 09/08/2018 Comp Metabolic Lsk416 AL K PHOS 65 U/L 09/08/2018 Comp Metabolic Spv206 T(SGOT) 16 U/L 09/08/2018 Comp Metabolic Lji176 AL T(SGPT) 14 U/L 09/08/2018 Comp Metabolic Qti717 BI LI T 0.6 mg/dL 09/08/2018 Comp Metabolic Fat814 AL BUMIN 4.0 g/dL 09/08/2018 Comp Metabolic Nwy340 TP RO 6.6 g/dL 09/08/2018 Comp Metabolic Kbi078 GL OB 2.6 g/dL 09/08/2018 Comp Metabolic Pmo521 A/ G Ratio 1.6 Ratio 09/08/2018 Comp Metabolic Ovc219 Os mo 272 mOsmo 09/08/2018 Vitamin D 25 Oh Bny4138 VITAMIN D, 25 HYDROXY 37.17 ng/mL 09/08/2018 [...] 33.3 pg 09/08/2018 Cbc With Differential Ord2 [place]% 8.1 % 09/08/2018 Cbc With Differential Ord2 [...] 2.44 K/ul 09/08/2018 Cbc With Differential Ord2 [place] ABS# 0.6 /ul 09/08/2018 Cbc With Differential Ord2 Eos ABS# 0.3 K/ul 09/08/2018 Cbc With Differential Ord2 Baso ABS# 0.0 K/ul 09/08/2018 Tsh Ord6 TSH (3rd IS) 2.72 uIU/mL 09/08/2018 Comp Metabolic Psf428 NA 139 mEq/L 04/01/2018 Comp Metabolic Cef115 K 4.2 mEq/L 04/01/2018 Comp Metabolic Jmq922 CL 102 mEq/L 04/01/2018 Comp Metabolic Udw914 CO2 29.0 mEq/L 04/01/2018 Comp Metabolic Svr150 AN ION GAP 12 04/01/2018 Comp Metabolic Xnp759 GL UCOSE 87 mg/dL 04/01/2018 Comp Metabolic Byi861 Cr eat 1.1 mg/dL 04/01/2018 Comp Metabolic Ygo629 eG FR 70 ml/min/1.73m2 04/01 Comp Metabolic Zzb066 BUN 21 mg/dL 04/01/2018 Comp Metabolic Kxp147 B/ C Ratio 19.4 Ratio 04/01/2018 Comp Metabolic Qdw762 CA LCIUM 9.1 mg/dL 04/01/2018 Comp Metabolic Ftm981 AL K PHOS 60 U/L 04/01/2018 Comp Metabolic Aib582 T(SGOT) 15 U/L 04/01/2018 Comp Metabolic Ous389 AL T(SGPT) 18 U/L 04/01/2018 Comp Metabolic Zpw499 BI LI T 0.4 mg/dL 04/01/2018 Comp Metabolic Pnm335 AL BUMIN 4.0 g/dL 04/01/2018 Comp Metabolic Mrh095 TP RO 6.5 g/dL 04/01/2018 Comp Metabolic Gwa134 GL OB 2.5 g/dL 04/01/2018 Comp Metabolic Aag138 A/ G Ratio 1.6 Ratio 04/01/2018 Comp Metabolic Xfx923 Os mo 280 mOsmo 04/01/2018 Lipid Ord30 [...] 34.3 pg 04/01/2018 Cbc With Differential Ord2 [place]% 6.0 % 04/01/2018 Cbc With Differential Ord2 [...] 3.25 K/ul 04/01/2018 Cbc With Differential Ord2 [place] ABS# 0.6 K/ul 04/01/2018 Cbc With Differential Ord2 Eos ABS# 0.4 K/ul 04/01/2018 Cbc With Differential Ord2 Baso ABS# 0.0 K/ul 04/01/2018 %Hba1C Jyp602 % HbA1c 35690-8 8.0 % 04/01/2018 %Hba1C Gss880 Gluc Ave 183 mg/dL 04/01/2018 Testosterone Vmz560 Testo 111.3 ng/dL 04/01/2018 Testosterone Fur072 Testo 135.4 ng/dL 01/14/2018 Cbc With Differential [...] 36.0 pg 01/14/2018 Cbc With Differential Ord2 [place]% 6.8 % 01/14/2018 Cbc With Differential Ord2 [...] 2.71 K/ul 01/14/2018 Cbc With Differential Ord2 [place] ABS# 0.8 K/ul 01/14/2018 Cbc With Differential Ord2 Eos ABS# 0.2 K/ul 01/14/2018 Cbc With Differential Ord2 Baso ABS# 0.0 K/ul 01/14/2018 Comp Metabolic Qki077 NA 134 mEq/L 11/20/2017 Comp Metabolic Ccy555 K 4.4 mEq/L 11/20/2017 Comp Metabolic Kdb864 CL 99 mEq/L 11/20/2017 Comp Metabolic Lgg485 CO2 29.0 mEq/L 11/20/2017 Comp Metabolic Nok116 AN ION GAP 10 11/20/2017 Comp Metabolic Vpf007 GL UCOSE 218 mg/dL 11/20/2017 Comp Metabolic Sld013 Cr eat 1.0 mg/dL 11/20/2017 Comp Metabolic Ssx766 eG FR 78 ml/min/1.73m2 11/20 Comp Metabolic Cgm069 BUN 13 mg/dL 11/20/2017 Comp Metabolic Cdj223 B/ C Ratio 13.3 Ratio 11/20/2017 Comp Metabolic Pei666 CA LCIUM 9.0 mg/dL 11/20/2017 Comp Metabolic Dzs668 AL K PHOS 71 U/L 11/20/2017 Comp Metabolic Xbc044 T(SGOT) 18 U/L 11/20/2017 Comp Metabolic Myf140 AL T(SGPT) 17 U/L 11/20/2017 Comp Metabolic Gkq171 BI LI T 0.4 mg/dL 11/20/2017 Comp Metabolic Rzb523 AL BUMIN 4.1 g/dL 11/20/2017 Comp Metabolic Aru344 TP RO 6.5 g/dL 11/20/2017 Comp Metabolic Pjg306 GL OB 2.4 g/dL 11/20/2017 Comp Metabolic Ovr075 A/ G Ratio 1.8 Ratio 11/20/2017 Comp Metabolic Xpk705 Os mo 275 mOsmo 11/20/2017 Cbc With [...] 35.2 pg 11/20/2017 Cbc With Differential Ord2 [place]% 7.2 % 11/20/2017 Cbc With Differential Ord2 [...] 3.34 K/ul 11/20/2017 Cbc With Differential Ord2 [place] ABS# 0.6 K/ul 11/20/2017 Cbc With Differential Ord2 Eos ABS# 0.3 K/ul 11/20/2017 Cbc With Differential Ord2 Baso ABS# 0.0 K/ul 11/20/2017 Vitamin D 25 Oh Whz2448 VITAMIN D, 25 HYDROXY 43.72 ng/mL 11/20/2017 %Hba1C Ata583 % HbA1c 18235-1 7.4 % 11/20/2017 %Hba1C Eiz717 Gluc Ave 166 mg/dL 11/20/2017 %Hba1C Ifs789 % HbA1c 76798-9 7.2 % 08/20/2017 %Hba1C Dxh587 Gluc Ave 160 mg/dL 08/20/2017 Lipid Ord30 [...] 34.7 pg 08/20/2017 Cbc With Differential Ord2 [place]% 7.6 % 08/20/2017 Cbc With Differential Ord2 [...] 2.42 K/ul 08/20/2017 Cbc With Differential Ord2 [place] ABS# 0.6 K/ul 08/20/2017 Cbc With Differential Ord2 Eos ABS# 0.3 K/ul 08/20/2017 Cbc With Differential Ord2 Baso ABS# 0.0 K/ul 08/20/2017 Tsh Ord6 hTSH II 2.27 uIU/mL 08/20/2017 Comp Metabolic Gxf594 NA 138 mEq/L 08/20/2017 Comp Metabolic Afe484 K 4.3 mEq/L 08/20/2017 Comp Metabolic Csn846 CL 102 mEq/L 08/20/2017 Comp Metabolic Hub258 CO2 29.0 mEq/L 08/20/2017 Comp Metabolic Fwm269 AN ION GAP 11 08/20/2017 Comp Metabolic Lxg815 GL UCOSE 89 mg/dL 08/20/2017 Comp Metabolic Jlp987 Cr eat 1.0 mg/dL 08/20/2017 Comp Metabolic Pxm128 eG FR 80 ml/min/1.73m2 08/20 Comp Metabolic Hzm747 BUN 13 mg/dL 08/20/2017 Comp Metabolic Jpr718 B/ C Ratio 13.5 Ratio 08/20/2017 Comp Metabolic Uvp016 CA LCIUM 9.2 mg/dL 08/20/2017 Comp Metabolic Hxh344 AL K PHOS 69 U/L 08/20/2017 Comp Metabolic Mqn166 T(SGOT) 18 U/L 08/20/2017 Comp Metabolic Log740 AL T(SGPT) 19 U/L 08/20/2017 Comp Metabolic Gpe725 BI LI T 0.6 mg/dL 08/20/2017 Comp Metabolic Gnk921 AL BUMIN 4.0 g/dL 08/20/2017 Comp Metabolic Wyc182 TP RO 6.6 g/dL 08/20/2017 Comp Metabolic Jwz124 GL OB 2.6 g/dL 08/20/2017 Comp Metabolic Bho200 A/ G Ratio 1.5 Ratio 08/20/2017 Comp Metabolic Rhh534 Os mo 275 mOsmo 08/20/2017 Vitamin D 25 Oh Sdl1298 VITAMIN D, 25 HYDROXY 30.96 ng/mL 08/20/2017 B12 Iar923 B12 >1500.00 pg/ml 02/22/2017 Cbc With Differential [...] 35.7 pg 02/20/2017 Cbc With Differential Ord2 [place]% 6.3 % 02/20/2017 Cbc With Differential Ord2 [...] 3.19 K/ul 02/20/2017 Cbc With Differential Ord2 [place] ABS# 0.5 K/ul 02/20/2017 Cbc With Differential Ord2 Eos ABS# 0.4 K/ul 02/20/2017 Cbc With Differential Ord2 Baso ABS# 0.0 K/ul 02/20/2017 Comp Metabolic Xbp168 NA 138 mEq/L 02/20/2017 Comp Metabolic Zag461 K 4.5 mEq/L 02/20/2017 Comp Metabolic Sqf668 CL 101 mEq/L 02/20/2017 Comp Metabolic Oly100 CO2 31.0 mEq/L 02/20/2017 Comp Metabolic Quq639 AN ION GAP 11 02/20/2017 Comp Metabolic Rhu552 GL UCOSE 120 mg/dL 02/20/2017 Comp Metabolic Uyu053 Cr eat 0.9 mg/dL 02/20/2017 Comp Metabolic Ucf077 eG FR 83 ml/min/1.73m2 02/20 Comp Metabolic Kkb991 BUN 15 mg/dL 02/20/2017 Comp Metabolic Rlb159 B/ C Ratio 16.1 Ratio 02/20/2017 Comp Metabolic Pbi330 CA LCIUM 9.1 mg/dL 02/20/2017 Comp Metabolic Mkd885 AL K PHOS 67 U/L 02/20/2017 Comp Metabolic Bmh642 T(SGOT) 15 U/L 02/20/2017 Comp Metabolic Uyu775 AL T(SGPT) 16 U/L 02/20/2017 Comp Metabolic Bus749 BI LI T 0.5 mg/dL 02/20/2017 Comp Metabolic Qjy835 AL BUMIN 4.0 g/dL 02/20/2017 Comp Metabolic Ido319 TP RO 6.4 g/dL 02/20/2017 Comp Metabolic Bbo377 GL OB 2.4 g/dL 02/20/2017 Comp Metabolic Ppj264 A/ G Ratio 1.7 Ratio 02/20/2017 Comp Metabolic Txh556 Os mo 278 mOsmo 02/20/2017 Tsh Ord6 hTSH II 2.05 uIU/mL 02/20/2017 %Hba1C Vln947 % HbA1c 57657-1 7.6 % 02/20/2017 %Hba1C Zfa286 Gluc Ave 171 mg/dL 02/20/2017 Vitamin D 25 Oh Qny2273 VITAMIN D, 25 HYDROXY 44.40 ng/mL 12/21/2016 Comp Metabolic Pnq127 NA 131 mEq/L 12/21/2016 Comp Metabolic Nbg063 K 4.2 mEq/L 12/21/2016 Comp Metabolic Kyb473 CL 97 mEq/L 12/21/2016 Comp Metabolic Yko917 CO2 27.0 mEq/L 12/21/2016 Comp Metabolic Ivy014 AN ION GAP 11 12/21/2016 Comp Metabolic Trk297 GL UCOSE 266 mg/dL 12/21/2016 Comp Metabolic Uyi597 Cr eat 0.9 mg/dL 12/21/2016 Comp Metabolic Voc950 eG FR 88 ml/min/1.73m2 12/21 Comp Metabolic Oaq842 BUN 12 mg/dL 12/21/2016 Comp Metabolic Ixv263 B/ C Ratio 13.6 Ratio 12/21/2016 Comp Metabolic Hho664 CA LCIUM 8.6 mg/dL 12/21/2016 Comp Metabolic Mom394 AL K PHOS 69 U/L 12/21/2016 Comp Metabolic Uui909 T(SGOT) 15 U/L 12/21/2016 Comp Metabolic Wbm587 AL T(SGPT) 14 U/L 12/21/2016 Comp Metabolic Vmg321 BI LI T 0.3 mg/dL 12/21/2016 Comp Metabolic Dxk013 AL BUMIN 3.7 g/dL 12/21/2016 Comp Metabolic Xjp084 TP RO 5.9 g/dL 12/21/2016 Comp Metabolic Rcj804 GL OB 2.2 g/dL 12/21/2016 Comp Metabolic Nza733 A/ G Ratio 1.7 Ratio 12/21/2016 Comp Metabolic Flv246 Os mo 272 mOsmo 12/21/2016 Cbc With [...] 34.6 pg 12/21/2016 Cbc With Differential Ord2 [place]% 6.9 % 12/21/2016 Cbc With Differential Ord2 [...] 2.05 K/ul 12/21/2016 Cbc With Differential Ord2 [place] ABS# 0.4 K/ul 12/21/2016 Cbc With Differential Ord2 Eos ABS# 0.2 K/ul 12/21/2016 Cbc With Differential Ord2 Baso ABS# 0.0 K/ul 12/21/2016 Comp Metabolic Rks397 NA 138 mEq/L 09/03/2016 Comp Metabolic Rve879 K 4.5 mEq/L 09/03/2016 Comp Metabolic Ohs573 CL 102 mEq/L 09/03/2016 Comp Metabolic Mdr171 CO2 30.0 mEq/L 09/03/2016 Comp Metabolic Ami091 AN ION GAP 11 09/03/2016 Comp Metabolic Wqk738 GL UCOSE 113 mg/dL 09/03/2016 Comp Metabolic Iyo038 Cr eat 1.0 mg/dL 09/03/2016 Comp Metabolic Zfe254 eG FR 81 ml/min/1.73m2 09/03 Comp Metabolic Xhn306 BUN 10 mg/dL 09/03/2016 Comp Metabolic Qez542 B/ C Ratio 10.5 Ratio 09/03/2016 Comp Metabolic Aiz094 CA LCIUM 9.1 mg/dL 09/03/2016 Comp Metabolic Hoo327 AL K PHOS 71 U/L 09/03/2016 Comp Metabolic Xxa388 T(SGOT) 18 U/L 09/03/2016 Comp Metabolic Pud398 AL T(SGPT) 17 U/L 09/03/2016 Comp Metabolic Bwg672 BI LI T 0.6 mg/dL 09/03/2016 Comp Metabolic Imx274 AL BUMIN 4.1 g/dL 09/03/2016 Comp Metabolic Sbz772 TP RO 6.4 g/dL 09/03/2016 Comp Metabolic Qmt873 GL OB 2.3 g/dL 09/03/2016 Comp Metabolic Woy780 A/ G Ratio 1.8 Ratio 09/03/2016 Comp Metabolic Bco336 Os mo 276 mOsmo 09/03/2016 Vitamin D 25 Oh Gpq9669 VITAMIN D, 25 HYDROXY 28.23 ng/mL 09/03/2016 [...] 34.4 pg 09/03/2016 Cbc With Differential Ord2 [place]% 8.9 % 09/03/2016 Cbc With Differential Ord2 [...] 3.34 K/ul 09/03/2016 Cbc With Differential Ord2 [place] ABS# 0.7 K/ul 09/03/2016 Cbc With Differential Ord2 Eos ABS# 0.4 K/ul 09/03/2016 Cbc With Differential Ord2 Baso ABS# 0.0 K/ul 09/03/2016 Lipid Ord30 CHOL 120 mg/dL 09/03/2016 Lipid Ord30 HDL 33.0 mg/dl 09/03/2016 Lipid Ord30 TRIG 161 mg/dL 09/03/2016 Lipid Ord30 LDL 55 mg/dL 09/03/2016 Lipid Ord30 C/HDL 3.6 Ratio 09/03/2016 %Hba1C Kiq279 % HbA1c 19912-7 7.5 % 09/03/2016 %Hba1C Zxf792 Gluc Ave 169 mg/dL 09/03/2016 Tsh Ord6 hTSH II 1.50 uIU/mL 05/23/2016 %Hba1C Rhf261 % HbA1c 45278-0 7.6 % 05/23/2016 %Hba1C Hru535 Gluc Ave 171 mg/dL 05/23/2016 Comp Metabolic Wpf868 NA 135 mEq/L 05/23/2016 Comp Metabolic Reb745 K 4.4 mEq/L 05/23/2016 Comp Metabolic Awe657 CL 99 mEq/L 05/23/2016 Comp Metabolic Qov402 CO2 28.0 mEq/L 05/23/2016 Comp Metabolic Xxu356 AN ION GAP 12 05/23/2016 Comp Metabolic Jdi272 GL UCOSE 257 mg/dL 05/23/2016 Comp Metabolic Bua224 Cr eat 0.8 mg/dL 05/23/2016 Comp Metabolic Uuz758 eG FR 95 ml/min/1.73m2 05/23 Comp Metabolic Lfe679 BUN 11 mg/dL 05/23/2016 Comp Metabolic Hke224 B/ C Ratio 13.3 Ratio 05/23/2016 Comp Metabolic Zlw117 CA LCIUM 9.0 mg/dL 05/23/2016 Comp Metabolic Gkp161 AL K PHOS 82 U/L 05/23/2016 Comp Metabolic Jke818 T(SGOT) 21 U/L 05/23/2016 Comp Metabolic Duc364 AL T(SGPT) 20 U/L 05/23/2016 Comp Metabolic Wgu525 BI LI T 0.3 mg/dL 05/23/2016 Comp Metabolic Sfh901 AL BUMIN 4.0 g/dL 05/23/2016 Comp Metabolic Iyr839 TP RO 6.4 g/dL 05/23/2016 Comp Metabolic Sjo271 GL OB 2.4 g/dL 05/23/2016 Comp Metabolic Yre558 A/ G Ratio 1.6 Ratio 05/23/2016 Comp Metabolic Xyw403 Os mo 278 mOsmo 05/23/2016 Cbc With [...] 34.5 pg 05/23/2016 Cbc With Differential Ord2 [place]% 6.1 % 05/23/2016 Cbc With Differential Ord2 [...] 2.38 K/ul 05/23/2016 Cbc With Differential Ord2 [place] ABS# 0.4 K/ul 05/23/2016 Cbc With Differential Ord2 Eos ABS# 0.2 K/ul 05/23/2016 Cbc With Differential Ord2 Baso ABS# 0.0 K/ul 05/23/2016 B12 Kwm252 B12 597.00 pg/ml 05/23/2016 Metabolic Ord15 NA [...] 0.92 uIU/mL 07/29/2015 Vitamin D 25 Oh Xob5586 VITAMIN D, 25 HYDROXY 26.93 ng/mL 07/29/2015 %Hba1C Swv075 % HbA1c 15550-8 8.8 % 07/29/2015 %Hba1C Ejs699 Gluc Ave 206 mg/dL 07/29/2015 Cbc With [...] Ord2 RDW 14.9 % 07/29/2015 Comp Metabolic Itj408 NA 138 mEq/L 07/29/2015 Comp Metabolic Dqu683 K 4.4 mEq/L 07/29/2015 Comp Metabolic Dep757 CL 102 mEq/L 07/29/2015 Comp Metabolic Usv445 CO2 28.0 mEq/L 07/29/2015 Comp Metabolic Uqc104 AN ION GAP 12 07/29/2015 Comp Metabolic Bwc119 GL UCOSE 261 mg/dL 07/29/2015 Comp Metabolic Cqw338 Cr eat 1.0 mg/dL 07/29/2015 Comp Metabolic Pie251 eG FR 77 ml/min/1.73m2 07/29 Comp Metabolic Pyv002 BUN 13 mg/dL 07/29/2015 Comp Metabolic Kuo818 B/ C Ratio 13.0 Ratio 07/29/2015 Comp Metabolic Uqi804 CA LCIUM 9.1 mg/dL 07/29/2015 Comp Metabolic Cbx744 AL K PHOS 64 U/L 07/29/2015 Comp Metabolic Kxh175 T(SGOT) 20 U/L 07/29/2015 Comp Metabolic Nwo262 AL T(SGPT) 22 U/L 07/29/2015 Comp Metabolic Dvy804 BI LI T 0.4 mg/dL 07/29/2015 Comp Metabolic Ajr795 AL BUMIN 4.0 g/dL 07/29/2015 Comp Metabolic Fwo237 TP RO 6.1 g/dL 07/29/2015 Comp Metabolic Pmo863 GL OB 2.1 g/dL 07/29/2015 Comp Metabolic Wuu891 A/ G Ratio 1.9 Ratio 07/29/2015 Comp Metabolic Fen405 Os mo 285 mOsmo 07/29/2015 Cbc With [...] Ord2 RDW 13.1 % 05/06/2015 Comp Metabolic Msr500 NA 134 mEq/L 05/06/2015 Comp Metabolic Ugn352 K 4.4 mEq/L 05/06/2015 Comp Metabolic Lof639 CL 98 mEq/L 05/06/2015 Comp Metabolic Yjo848 CO2 29.0 mEq/L 05/06/2015 Comp Metabolic Oyq673 AN ION GAP 11 05/06/2015 Comp Metabolic Zvi600 GL UCOSE 321 mg/dL 05/06/2015 Comp Metabolic Vdn592 Cr eat 1.0 mg/dL 05/06/2015 Comp Metabolic Uyk857 eG FR 78 ml/min/1.73m2 05/06 Comp Metabolic Fln125 BUN 20 mg/dL 05/06/2015 Comp Metabolic Zfb652 B/ C Ratio 20.4 Ratio 05/06/2015 Comp Metabolic Qas636 CA LCIUM 9.5 mg/dL 05/06/2015 Comp Metabolic Qiv588 AL K PHOS 62 U/L 05/06/2015 Comp Metabolic Hbo813 T(SGOT) 21 U/L 05/06/2015 Comp Metabolic Uzg100 AL T(SGPT) 37 U/L 05/06/2015 Comp Metabolic Icu682 BI LI T 0.4 mg/dL 05/06/2015 Comp Metabolic Nho463 AL BUMIN 3.8 g/dL 05/06/2015 Comp Metabolic Mtg939 TP RO 6.1 g/dL 05/06/2015 Comp Metabolic Qog492 GL OB 2.3 g/dL 05/06/2015 Comp Metabolic Wlc359 A/ G Ratio 1.7 Ratio 05/06/2015 Comp Metabolic Udl501 Os mo 283 mOsmo 05/06/2015 Tsh Ord6 hTSH II 1.65 uIU/mL 02/18/2015 B12 Ygs205 B12 605.00 pg/ml 02/18/2015 %Hba1C Xtz432 % HbA1c 48222-5 8.3 % 02/18/2015 %Hba1C Psc863 Gluc Ave 192 mg/dL 02/18/2015 Cbc With [...] Ord2 RDW 13.9 % 02/17/2015 Comp Metabolic Zsh558 NA 137 mEq/L 02/17/2015 Comp Metabolic Fzl785 K 4.4 mEq/L 02/17/2015 Comp Metabolic Fqa217 CL 100 mEq/L 02/17/2015 Comp Metabolic Mfa714 CO2 31.0 mEq/L 02/17/2015 Comp Metabolic Zwf630 AN ION GAP 10 02/17/2015 Comp Metabolic Ukm576 GL UCOSE 307 mg/dL 02/17/2015 Comp Metabolic Sts850 Cr eat 1.0 mg/dL 02/17/2015 Comp Metabolic Akj377 eG FR 74 ml/min/1.73m2 02/17 Comp Metabolic Iyn852 BUN 22 mg/dL 02/17/2015 Comp Metabolic Xkh704 B/ C Ratio 21.4 Ratio 02/17/2015 Comp Metabolic Bsx994 CA LCIUM 9.5 mg/dL 02/17/2015 Comp Metabolic Uzt675 AL K PHOS 78 U/L 02/17/2015 Comp Metabolic Wyn722 T(SGOT) 18 U/L 02/17/2015 Comp Metabolic Psr579 AL T(SGPT) 32 U/L 02/17/2015 Comp Metabolic Ojv540 BI LI T 0.5 mg/dL 02/17/2015 Comp Metabolic Iew884 AL BUMIN 4.3 g/dL 02/17/2015 Comp Metabolic Kmu329 TP RO 6.7 g/dL 02/17/2015 Comp Metabolic Omc693 GL OB 2.4 g/dL 02/17/2015 Comp Metabolic Iqi709 A/ G Ratio 1.8 Ratio 02/17/2015 Comp Metabolic Ejc011 Os mo 289 mOsmo 02/17/2015 Review of [...] No fever 08/23/2016 Eyes No eye pain 01/12/2 017 Eyes No vision change Ears/Nose/Throat/Neck No [...] inspection of skin Location: face 03/07/2015 on worship, cheeks,actinic keratosis with irritation on left cheek - left worship - croptherapy on these two lesions - [...] Procedure Codes Date THER/PROPH/DIAG INJ SC/IM CPT-4: 46193 03/04/2019 THER/PROPH/DIAG INJ SC/IM CPT-4: 32457 02/16/2019 THER/PROPH/DIAG INJ SC/IM CPT-4: 49642 01/30/2019 THER/PROPH/DIAG INJ SC/IM CPT-4: 14105 01/16/2019 THER/PROPH/DIAG INJ SC/IM CPT-4: 13975 01/01/2019 THER/PROPH/DIAG INJ SC/IM CPT-4: 46082 12/17/2018 THER/PROPH/DIAG INJ SC/IM CPT-4: 01927 12/02/2018 THER/PROPH/DIAG INJ SC/IM CPT-4: 90244 11/18/2018 THER/PROPH/DIAG INJ SC/IM CPT-4: 86941 11/04/2018 THER/PROPH/DIAG INJ SC/IM CPT-4: 31339 10/14/2018 THER/PROPH/DIAG INJ SC/IM CPT-4: 60592 10/03/2018 THER/PROPH/DIAG INJ SC/IM CPT-4: 04820 09/23/2018 THER/PROPH/DIAG INJ SC/IM CPT-4: 20199 09/02/2018 THER/PROPH/DIAG INJ SC/IM CPT-4: 41454 08/21/2018 THER/PROPH/DIAG INJ SC/IM CPT-4: 77088 08/08/2018 THER/PROPH/DIAG INJ SC/IM CPT-4: 76022 07/28/2018 THER/PROPH/DIAG INJ SC/IM CPT-4: 54115 07/16/2018 THER/PROPH/DIAG INJ SC/IM CPT-4: 80565 07/02/2018 PPPS, SUBSEQ VISIT CPT- 4: G0439 06/30/2018 THER/PROPH/DIAG INJ SC/IM CPT-4: 55026 06/24/2018 THER/PROPH/DIAG INJ SC/IM CPT-4: 65318 06/13/2018 ADMIN INFLUENZA VIRU S VAC CPT-4: G0008 06/06/2018 FLU VACC PRSV FREE I NC ANTIG CPT-4: 72619 06/06/2018 THER/PROPH/DIAG INJ SC/IM CPT-4: 70939 06/05/2018 THER/PROPH/DIAG INJ SC/IM CPT-4: 40721 05/30/2018 THER/PROPH/DIAG INJ SC/IM CPT-4: 62161 05/22/2018 THER/PROPH/DIAG INJ SC/IM CPT-4: 02176 05/12/2018 THER/PROPH/DIAG INJ SC/IM CPT-4: 00367 05/02/2018 THER/PROPH/DIAG INJ SC/IM CPT-4: 14880 04/24/2018 THER/PROPH/DIAG INJ SC/IM CPT-4: 46328 04/17/2018 KETOROLAC TROMETHAMI NE INJ CPT-4: J1885 03/07/2018 URINALYSIS NONAUTO W /O SCOPE CPT-4: 81969 03/07/2018 THER/PROPH/DIAG INJ SC/IM CPT-4: 52128 02/20/2018 TRIAMCINOLONE ACET I [place] NOS CPT-4: J3301 01/30/2018 THER/PROPH/DIAG INJ SC/IM CPT-4: 96272 01/17/2018 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 3-[address]: 692485531 CPT-4: G0436 04/25/2017 ADMIN INFLUENZA VIRU S VAC CPT-4: G0008 04/25/2017 ADMIN PNEUMOCOCCAL V ACCINE SNOMED CT: 30292268 CPT-4: G0009 04/25/2017 PNEUMOCOCCAL VACC [address]: 34588686 CPT-4: 20877 04/25/2017 FLU VACC PRSV FREE I NC ANTIG CPT-4: 79226 04/25/2017 ADMIN INFLUENZA VIRU S VAC CPT-4: G0008 05/22/2016 FLU VACC 4 TELLY 3 YRS PLUS IM Formatting Model/CDA Sections, Assigned to/Angela Clemons SNOMED CT: 18347371 CPT-4: 91156Hiaquww 05/22/2016 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 3-[address]: 831319568 CPT-4: G0436 11/25/2015 URINALYSIS NONAUTO W /O SCOPE CPT-4: 10001 05/09/2015 TRIAMCINOLONE ACET I [place] NOS CPT-4: J3301 04/12/2015 DESTRUCT PREMALG LESION CPT-4: 99391 03/07/2015 DESTRUCT PREMALG LES 2-14 CPT-4: 32621 03/07/2015 REMOVE IMPACTED EAR WAX UNI CPT-4: 69304 12/31/2014 THER/PROPH/DIAG INJ SC/IM CPT-4: 70689 12/23/2014 TRIAMCINOLONE ACET I [place] NOS CPT-4: J3301 12/23/2014 Vital Signs Date Vital 03/03/2019 Blood Pressure 1: 150/72 Code: 8480-6 BMI: 20.6 Code: 25566-4 Heart Rate 1: 63 bpm Height: 5'11" SpO2: 100% Weight: 147 lbs 8 oz 12/02/2018 Blood Pressure 1: 140/70 Code: 8480-6 BMI: 21.9 Code: 13483-8 Heart Rate 1: 61 bpm Height: 5'11" SpO2: 94% Weight: 157 lbs 10/17/2018 Blood Pressure 1: 124/54 Code: 8480-6 BMI: 21.9 Code: 73502-1 Heart Rate 1: 64 bpm Height: 5'11" SpO2: 93% Weight: 157 lbs 09/02/2018 Blood Pressure 1: 140/80 Code: 8480-6 BMI: 21.2 Code: 25462-9 Heart Rate 1: 68 bpm Height: 5'11" SpO2: 97% Weight: 152 lbs 06/30/2018 BMI: 21.8 Code: 70807-0 Height: 5'11" Weight: 156 lbs 06/06/2018 Blood Pressure 1: 128/76 Code: 8480-6 BMI: 22.0 Code: 28088-6 Heart Rate 1: 81 bpm Height: 5'11" SpO2: 92% Weight: 158 lbs 04/04/2018 Blood Pressure 1: 124/70 Code: 8480-6 BMI: 20.8 Code: 54173-0 Heart Rate 1: 65 bpm Height: 5'11" SpO2: 95% Weight: 149 lbs 03/07/2018 Blood Pressure 1: 148/70 Code: 8480-6 BMI: 21.2 Code: 88233-9 Heart Rate 1: 66 bpm Height: 5'11" SpO2: 94% Weight: 152 lbs 02/20/2018 Blood Pressure 1: 134/58 Code: 8480-6 BMI: 20.5 Code: 26347-7 Heart Rate 1: 61 bpm Height: 5'11" SpO2: 92% Weight: 147 lbs 01/30/2018 Blood Pressure 1: 158/68 Code: 8480-6 BMI: 21.5 Code: 05015-1 Heart Rate 1: 71 bpm Height: 5'11" SpO2: 92% Weight: 154 lbs 01/14/2018 Blood Pressure 1: 156/70 Code: 8480-6 Height: Weight: 01/13/2018 Blood Pressure 1: 148/62 Code: 8480-6 BMI: 20.9 Code: 39756-6 Heart Rate 1: 54 bpm Height: 5'11" SpO2: 97% Weight: 150 lbs 11/19/2017 Blood Pressure 1: 150/60 Code: 8480-6 BMI: 21.8 Code: 00951-1 Heart Rate 1: 63 bpm Height: 5'11" SpO2: 98% Weight: 156 lbs 10/02/2017 Blood Pressure 1: 168/60 Code: 8480-6 BMI: 21.9 Code: 49653-3 Heart Rate 1: 52 bpm Height: 5'11" SpO2: 97% Weight: 157 lbs 07/23/2017 Blood Pressure 1: 170/70 Code: 8480-6 BMI: 21.8 Code: 78509-7 Heart Rate 1: 65 bpm Height: 5'11" SpO2: 98% Weight: 156 lbs 04/25/2017 Blood Pressure 1: 138/60 Code: 8480-6 BMI: 21.6 Code: 79858-3 Heart Rate 1: 55 bpm Height: 5'11" SpO2: 93% Weight: 155 lbs 02/19/2017 Blood Pressure 1: 138/64 Code: 8480-6 BMI: 21.3 Code: 57746-8 Heart Rate 1: 52 bpm Height: 5'11" SpO2: 96% Weight: 152 lbs 8 oz 01/21/2017 Blood Pressure 1: 160/68 Code: 8480-6 BMI: 21.3 Code: 84970-6 Heart Rate 1: 62 bpm Height: 5'11" SpO2: 96% Weight: 153 lbs 12/20/2016 Blood Pressure 1: 124/66 Code: 8480-6 BMI: 21.5 Code: 41954-2 Height: 5'11" Weight: 154 lbs 08/23/2016 Blood Pressure 1: 142/52 Code: 8480-6 BMI: 21.2 Code: 86814-3 Heart Rate 1: 54 bpm Height: 5'11" SpO2: 96% Weight: 152 lbs 05/22/2016 Blood Pressure 1: 130/76 Code: 8480-6 BMI: 21.5 Code: 10383-6 Heart Rate 1: 78 bpm Height: 5'11" SpO2: 92% Weight: 154 lbs 02/24/2016 Blood Pressure 1: 128/80 Code: 8480-6 BMI: 21.2 Code: 44478-3 Heart Rate 1: 74 bpm Height: 5'11" SpO2: 96% Weight: 152 lbs 01/27/2016 Blood Pressure 1: 144/60 Code: 8480-6 BMI: 21.2 Code: 09082-5 Heart Rate 1: 74 bpm Height: 5'11" SpO2: 97% Weight: 152 lbs 11/25/2015 Blood Pressure 1: 110/52 Code: 8480-6 BMI: 21.9 Code: 09352-3 Heart Rate 1: 65 bpm Height: 5'11" SpO2: 92% Weight: 157 lbs 07/28/2015 Blood Pressure 1: 138/62 Code: 8480-6 BMI: 21.8 Code: 46458-1 Heart Rate 1: 63 bpm Height: 5'11" SpO2: 91% Weight: 156 lbs 05/26/2015 Blood Pressure 1: 120/58 Code: 8480-6 BMI: 21.5 Code: 23682-7 Heart Rate 1: 99 bpm Height: 5'11" SpO2: 96% Weight: 154 lbs 05/06/2015 Blood Pressure 1: 120/58 Code: 8480-6 BMI: 21.2 Code: 74545-6 Heart Rate 1: 66 bpm Height: 5'11" SpO2: 96% Weight: 152 lbs 04/25/2015 Blood Pressure 1: 136/62 Code: 8480-6 BMI: 21.2 Code: 97191-2 Heart Rate 1: 63 bpm Height: 5'11" SpO2: 97% Weight: 152 lbs 04/12/2015 Blood Pressure 1: 160/58 Code: 8480-6 BMI: 21.6 Code: 36725-2 Heart Rate 1: 62 bpm Height: 5'11" Weight: 155 lbs 03/24/2015 Blood Pressure 1: 138/68 Code: 8480-6 BMI: 22.0 Code: 66115-2 Heart Rate 1: 65 bpm Height: 5'11" SpO2: 96% Weight: 158 lbs 03/07/2015 Blood Pressure 1: 116/52 Code: 8480-6 BMI: 22.2 Code: 97178-9 Heart Rate 1: 64 bpm Height: 5'11" SpO2: 97% Weight: 159 lbs 02/17/2015 Blood Pressure 1: 148/58 Code: 8480-6 BMI: 21.3 Code: 54335-1 Heart Rate 1: 63 bpm Height: 5'11" SpO2: 97% Weight: 153 lbs 12/31/2014 Blood Pressure 1: 100/60 Code: 8480-6 BMI: 21.8 Code: 58885-9 Heart Rate 1: 68 bpm Height: 5'11" Weight: 156 lbs 12/23/2014 Blood Pressure 1: 148/64 Code: 8480-6 BMI: 21.9 Code: 65379-3 Heart Rate 1: 64 bpm Height: 5'11" [...] week 06/30/2018 None Annual Medicare Wellness Exam [place] ng Stress usually makenzie effectively 06/30/2018 None [...] in his feet occasionally hypertension Quality angely leach hypertension 02/20/2018 None hypertension Onset and Resolution [...] in his feet occasionally hypertension Quality angely leach hypertension 11/19/2017 None hypertension Onset and Resolution [...] Denies dyspnea 07/23/2017 None hypertension Quality angely leach hypertension 07/23/2017 None hypertension Onset and Resolution [...] Encounters Encounter Performer Loca tion Codes Date ([id number]) 90223 EST. [facility] Diagnosis: Chronic obstructive pulmonary disease, unspecified[ICD10: J44.9] Diagnosis: Mixed hyperlipidemia[ICD10: E78.2] Diagnosis: Type 2 diabetes mellitus with hyperglycemia[ICD10: E11.65] Diagnosis: Testicular dysfunction, unspecified[ICD10: E29.9] Diagnosis: Abnormal weight loss[ICD10: R63.4] Karmen Ash MD, [facility] CPT-4: 11045 03/03/2019 [id number]) 73907 EST. [facility] Diagnosis: Chronic obstructive pulmonary disease, unspecified[ICD10: J44.9] Diagnosis: Type 2 diabetes mellitus with hyperglycemia[ICD10: E11.65] Diagnosis: Testicular dysfunction, unspecified[ICD10: E29.9] Diagnosis: Other insomnia[ICD10: G47.09] Karmen Ash MD, [facility] CPT- 4: 42110 12/02/2018 [id number]) 96068 EST. [facility] Diagnosis: Orthostatic hypotension[ICD10: I95.1] Diagnosis: Low back pain[ICD10: M54.5] Diagnosis: Unsteadiness on feet[ICD10: R26.81] Karmen Ash MD, [facility] CPT-4: 63691 10/17/2018 ([id number]) 65058 EST. P ATIENT, LEVEL IV Diagnosis: Essential (primary) hypertension[ICD10: I10] Diagnosis: Chronic obstructive pulmonary disease, unspecified[ICD10: J44.9] Diagnosis: Type 2 diabetes mellitus with hyperglycemia[ICD10: E11.65] Diagnosis: Vitamin D deficiency, unspecified[ICD10: E55.9] Diagnosis: Mixed hyperlipidemia[ICD10: E78.2] Diagnosis: Testicular dysfunction, unspecified[ICD10: E29.9] Karmen Ash MD, [facility] CPT-4: 55642 09/02/2018 ([id number]) 30954 EST. P ATIENT, LEVEL IV Diagnosis: Cellulitis of face[ICD10: L03.211] Diagnosis: Type 2 diabetes mellitus without complications[ICD10: E11.9] Diagnosis: Essential (primary) hypertension[ICD10: I10] Diagnosis: Encounter for immunization[ICD10: Z23] Karmen Ash MD, [facility] CPT-4: 73910 06/06/2018 ([id number]) 49561 EST. P ATIENT, LEVEL IV Diagnosis: Essential (primary) hypertension[ICD10: I10] Diagnosis: Chronic obstructive pulmonary disease, unspecified[ICD10: J44.9] Diagnosis: Testicular dysfunction, unspecified[ICD10: E29.9] Diagnosis: Type 2 diabetes mellitus with hyperglycemia[ICD10: E11.65] Karmen Ash MD, [facility] CPT-4: 91345 04/04/2018 ([id number]) 62860 EST. P ATIENT, LEVEL III Diagnosis: Low back pain[ICD10: M54.5] Diagnosis: Dysuria[ICD10: R30.0] Karmen Ash MD, [facility] CPT-4: 03997 03/07/2018 ([id number]) 22783 EST. P ATIENT, LEVEL IV Diagnosis: Essential (primary) hypertension[ICD10: I10] Diagnosis: Chronic obstructive pulmonary disease, unspecified[ICD10: J44.9] Diagnosis: Abnormal weight loss[ICD10: R63.4] Diagnosis: Low back pain[ICD10: M54.5] Diagnosis: Testicular dysfunction, unspecified[ICD10: E29.9] Diagnosis: Type 2 diabetes mellitus with hyperglycemia[ICD10: E11.65] Kamren Ash MD, [facility] CPT-4: 15413 02/20/2018 ([id number]) 54136 EST. P ATIENT, LEVEL III Diagnosis: Chronic obstructive pulmonary disease with (acute) exacerbation[ICD10: J44.1] Karmen Ash MD, [facility] CPT-4: 86883 01/30/2018 65302 EST. PATIENT, LEVEL II Diagnosis: Insect bite (nonvenomous), left lower leg, initial encounter[ICD10: S80.862A] Karmen Ash MD, [facility] CPT-4: 40977 01/14/2018 ([id number]) 67468 EST. P ATIENT, LEVEL IV Diagnosis: Type 2 diabetes mellitus with hyperglycemia[ICD10: E11.65] Diagnosis: Chronic obstructive pulmonary disease, unspecified[ICD10: J44.9] Diagnosis: Other fatigue[ICD10: R53.83] Karmen Ash MD, [facility] CPT- 4: 24556 01/13/2018 ([id number]) 08838 EST. P ATIENT, LEVEL IV Diagnosis: Type 2 diabetes mellitus with hyperglycemia[ICD10: E11.65] Diagnosis: Vitamin D deficiency, unspecified[ICD10: E55.9] Diagnosis: Essential (primary) hypertension[ICD10: I10] Diagnosis: Abdominal distension (gaseous)[ICD10: R14.0] Diagnosis: Drug induced constipation[ICD10: K59.03] Karmen Ash MD, [facility] CPT-4: 35967 11/19/2017 61221 EST. PATIENT, LEVEL IV Diagnosis: Low back pain[ICD10: M54.5] Diagnosis: Chronic obstructive pulmonary disease, unspecified[ICD10: J44.9] Brunilda Ash MD, [facility] CPT-4: 32121 10/02/2017 ([id number]) 52603 EST. P ATIENT, LEVEL IV Diagnosis: Essential (primary) hypertension[ICD10: I10] Diagnosis: Type 2 diabetes mellitus with hyperglycemia[ICD10: E11.65] Diagnosis: Vitamin D deficiency, unspecified[ICD10: E55.9] Diagnosis: Mixed hyperlipidemia[ICD10: E78.2] Karmen Ash MD, [facility] CPT-4: 50180 07/23/2017 ([id number]) 67375 EST. P ATIENT, LEVEL IV Diagnosis: Essential (primary) hypertension[ICD10: I10] Diagnosis: Type 2 diabetes mellitus with hyperglycemia[ICD10: E11.65] Diagnosis: Chronic obstructive pulmonary disease, unspecified[ICD10: J44.9] Diagnosis: Nicotine dependence, unspecified, uncomplicated[ICD10: F17.200] Diagnosis: Encounter for immunization[ICD10: Z23] Karmen Ash MD, [facility] CPT-4: 11899 04/25/2017 ([id number]) 21828 EST. P ATIENT, LEVEL IV Diagnosis: Type 2 diabetes mellitus with hyperglycemia[ICD10: E11.65] Diagnosis: Essential (primary) hypertension[ICD10: I10] Diagnosis: Anemia, unspecified[ICD10: D64.9] Karmen Ash MD, [facility] CPT- 4: 14634 02/19/2017 ([id number]) 71886 EST. P ATIENT, LEVEL IV Diagnosis: Slow transit constipation[ICD10: K59.01] Diagnosis: Gastro-esophageal reflux disease without esophagitis[ICD10: K21.9] Diagnosis: Essential (primary) hypertension[ICD10: I10] Karmen Ash MD, [facility] CPT-4: 60661 01/21/2017 ([id number]) 10279 EST. P ATIENT, LEVEL IV Diagnosis: Type 2 diabetes mellitus with hyperglycemia[ICD10: E11.65] Diagnosis: Vitamin D deficiency, unspecified[ICD10: E55.9] Diagnosis: Essential (primary) hypertension[ICD10: I10] Diagnosis: Chronic obstructive pulmonary disease, unspecified[ICD10: J44.9] Karmen Ash MD, [facility] CPT-4: 25885 12/20/2016 ([id number]) 80786 EST. P ATIENT, LEVEL IV Diagnosis: Type 2 diabetes mellitus with hyperglycemia[ICD10: E11.65] Diagnosis: Essential (primary) hypertension[ICD10: I10] Diagnosis: Mixed hyperlipidemia[ICD10: E78.2] Diagnosis: Vitamin D deficiency, unspecified[ICD10: E55.9] Karmen Ash MD, [facility] CPT-4: 35195 08/23/2016 ([id number]) 82494 EST. P ATIENT, LEVEL IV Diagnosis: Type 2 diabetes mellitus with hyperglycemia[ICD10: E11.65] Diagnosis: Essential (primary) hypertension[ICD10: I10] Diagnosis: Chronic obstructive pulmonary disease, unspecified[ICD10: J44.9] Karmen Ash MD, [facility] CPT-4: 07696 05/22/2016 ([id number]) 56096 EST. P ATIENT, LEVEL III Diagnosis: Dysuria[ICD10: R30.0] Diagnosis: Essential (primary) hypertension[ICD10: I10] Karmen Ash MD, [facility] CPT-4: 96427 02/24/2016 ([id number]) 27561 EST. P ATIENT, LEVEL IV Diagnosis: Gastro-esophageal reflux disease without esophagitis[ICD10: K21.9] Diagnosis: Slow transit constipation[ICD10: K59.01] Diagnosis: Type 2 diabetes mellitus with hyperglycemia[ICD10: E11.65] Karmen Ash MD, [facility] CPT-4: 88387 01/27/2016 ([id number]) 81668 EST. P ATIENT, LEVEL IV Diagnosis: Essential (primary) hypertension[ICD10: I10] Diagnosis: Type 2 diabetes mellitus with hyperglycemia[ICD10: E11.65] Diagnosis: Vitamin D deficiency, unspecified[ICD10: E55.9] Diagnosis: Chronic obstructive pulmonary disease, unspecified[ICD10: J44.9] Diagnosis: Mixed hyperlipidemia[ICD10: E78.2] Diagnosis: Tobacco use[ICD10: Z72.0] Karmen Ash MD, [facility] CPT- 4: 65849 11/25/2015 ([id number]) 46773 EST. P ATIENT, LEVEL IV Diagnosis: Type 2 diabetes mellitus with hyperglycemia[ICD10: E11.65] Diagnosis: Essential (primary) hypertension[ICD10: I10] Diagnosis: Vitamin D deficiency, unspecified[ICD10: E55.9] Karmen Ash MD, [facility] CPT-4: 53542 07/28/2015 ([id number]) 10467 EST. P ATIENT, LEVEL III Diagnosis: Type 2 diabetes mellitus with hyperglycemia[ICD10: E11.65] Diagnosis: Essential (primary) hypertension[ICD10: I10] Violeta Ash MD, [facility] CPT-4: 10823 05/26/2015 ([id number]) 90330 EST. P ATIENT, LEVEL III Diagnosis: DIABETES TYPE II[ICD9: 250.00] Diagnosis: COPD (chronic obstructive pulmonary disease)[ICD9: 496] Diagnosis: ESSENTIAL HYPERTENSION[ICD9: 401.9] Diagnosis: Cough[ICD9: 786.2] Violeta Ash MD, [facility] CPT-4: 62744 05/06/2015 ([id number]) 34186 EST. P ATIENT, LEVEL III Diagnosis: COPD (chronic obstructive pulmonary disease)[ICD9: 496] Diagnosis: DIABETES TYPE II[ICD9: 250.00] Diagnosis: Muscle ache[ICD9: 729.1] Karmen Ash MD, [facility] CPT- 4: 66952 04/25/2015 ([id number]) 87249 EST. P ATIENT, LEVEL III Diagnosis: ACTINIC KERATOSIS[ICD9: 702.0] Diagnosis: COPD (chronic obstructive pulmonary disease)[ICD9: 496] Diagnosis: DIABETES TYPE II[ICD9: 250.00] Diagnosis: ACUTE URI[ICD9: 465.9] Violeta Ash MD, [facility] CPT-4: 23736 04/12/2015 ([id number]) 41422 EST. P ATIENT, LEVEL III Diagnosis: DIABETES TYPE II[ICD9: 250.00] Violeta Ash MD, [facility] CPT-4: 04478 03/24/2015 ([id number]) 67186 EST. P ATIENT, LEVEL IV Diagnosis: DIABETES TYPE II[ICD9: 250.00] Diagnosis: Hypoglycemia[ICD9: 251.2] Diagnosis: Skin texture changes[ICD9: 782.8] Violeta Ash MD, [facility] CPT-4: 43990 03/07/2015 ([id number]) 39978 EST. P ATIENT, LEVEL IV Diagnosis: COPD (chronic obstructive pulmonary disease)[ICD9: 496] Diagnosis: Fatigue[ICD9: 780.79] Diagnosis: Insulin dependent diabetes mellitus[ICD9: 250.00] Diagnosis: Unsteady gait[ICD9: 781.2] [facility] CPT-4: 32437 02/17/2015 ([id number]) 22496 EST. [facility], LEVEL IV Diagnosis: BPPV (benign paroxysmal positional vertigo)[ICD9: 386.11] Diagnosis: Impacted cerumen[ICD9: 380.4] Diagnosis: ESSENTIAL HYPERTENSION[ICD9: 401.9] Diagnosis: Insulin dependent diabetes mellitus[ICD9: 250.00] [facility] CPT-4: 20058 12/23/2014 ([id number]) [facility] LEVEL 4 Diagnosis: Insulin dependent diabetes mellitus[ICD9: 250.00] Diagnosis: BPPV (benign paroxysmal positional vertigo)[ICD9: 386.11] Diagnosis: COPD (chronic obstructive pulmonary disease)[ICD9: 496] Diagnosis: Tobacco abuse[ICD9: 305.1] Diagnosis: Osteoarthritis[ICD9: 715.90] [facility] CPT- 4: 52819 12/09/2014 Plan of Care Planned Activity Notes C odes Status Date Patient Education: Patient Medication Summary Completed 03/05/2019 Appointment: Injection 03/04/2019 Patient Education: Patient Medication Summary Completed 03/04/2019 Visit Plan: COPD - chronic problem for this patient. We have reviewed chronic treatment strategy, symptom control, and plans for acute exacerbations. No changes today to the current treatment plan as the patient is stable, monitor for acute changes. [employer]DC tobacco use -weight loss-order for chest xray provided DM -rx for CGM -patient is due for labs Low testosterone - check level 03/03/2019 Appointment: Karmen Espinla WPtel: [phone] (30 min) [facility] 03/03/2019 Patient Education: Patient Medication Summary Completed [...] as directed 12/02/2018 Appointment: Karmen Espinal WPtel: [facility]2 [facility] [place] [address] (30 min) Complex 12/02/2018 Patient Education: Patient Medication Summary Completed 12/02/2018 Patient Education: Diabetes Completed 12/02/2018 Appointment: Injection 11/18/2018 Patient Education: Patient Medication Summary Completed 11/18/2018 Appointment: Injection 11/04/2018 Patient Education: Patient Medication Summary Completed 11/04/2018 Appointment: Karmen Espinal WPtel: [facility]5 [phone] (30 min) Complex 10/21/2018 Visit Plan: [...] a walker 10/17/2018 Appointment: Karmen Espinal WPtel: [phone] (30 min) Complex 10/17/2018 Patient Education: Patient Medication Summary Completed 10/17/2018 Patient Education: Back Pain Completed 10/17/2018 Appointment: Injection 10/14/2018 Patient Education: Patient Medication Summary Completed 10/14/2018 Appointment: Injection 10/03/2018 Patient Education: Patient Medication Summary Completed 10/03/2018 Appointment: Injection 09/23/2018 Patient Education: Patient Medication Summary Completed 09/23/2018 Visit Plan: Hypertension - echo traore - [...] medications. 09/02/2018 Appointment: [facility] Espinal [facility] [phone] [phone] (15 min) Moderate 09/02/2018 Patient Education: [...] surrogate. 06/30/2018 Appointment: Karmen Espinal WPtel: [phone] [phone] [facility] - Annual Wellness Visit 06/30/2018 Patient Education: Patient Medication Summary Completed 06/30/2018 Appointment: Injection 06/24/2018 Patient Education: Patient Medication Summary Completed 06/24/2018 Appointment: Injection 06/13/2018 Patient Education: Patient Medication Summary Completed 06/13/2018 Visit Plan: Diabetes Mellitus - Niraj rascon recommended for the patient to have follow [...] pain. 06/06/2018 Appointment: Karmen Espinal WPtel: [phone] [phone] [place] (15 min) Moderate 06/06/2018 Patient Education: [...] 2 months 04/04/2018 Appointment: [facility]inal [facility] [phone] [phone] (15 min) Moderate 04/04/2018 Patient Education: Patient Medication Summary Completed 04/04/2018 Care Plan: Cbc With Differential Pending 04/04/2018 Care Plan: Testosterone repeat in 2 months Pending 04/04/2018 Appointment: Karmen Espinal WPtel: [phone] [phone] [place] (15 min) Moderate 03/25/2018 Visit Plan: Low back pain -history of kidney stone-UA negative today -increase fluids and call if pain does not resolve or if any worse. 03/07/2018 Appointment: Karmen Espinal WPtel: [phone] [phone] [place] (15 min) Moderate 03/07/2018 Patient [...] 1 month 02/20/2018 Appointment: Karmen Espinal WPtel: [facility] [place] [address] (15 min) Moderate 02/20/2018 Patient Education: Patient Medication Summary Completed 02/20/2018 Visit Plan: COPD EXACERBATION - MATERIAL LIAISON D is a chronic problem for this [...] acute changes. 01/30/2018 Appointment: Karmen Espinal WPtel: [facility]4 [phone] (15 min) Moderate 01/30/2018 Patient Education: Patient Medication Summary Completed 01/30/2018 Appointment: Karmen Espinal WPtel: [facility]2 [phone] (15 min) Moderate 01/28/2018 Appointment: Injection 01/17/2018 Patient Education: Patient Medication Summary Completed 01/17/2018 Visit Plan: Cellulitis - start oral antibiotics as directed, return to clinic as previously directed, call for acute change in symptoms, worsening redness, warmth, discharge. 01/14/2018 Appointment: Karmen Espinal WPtel: [facility]7 [phone] (10 min) Simple 01/14/2018 Patient Education: Patient [...] less controlled. 01/13/2018 Appointment: Karmen Espinal WPtel: [facility]6 [phone] (15 min) Moderate 01/13/2018 Patient Education: Patient Medication Summary Completed 01/13/2018 Referral: Hugo Villatoro [facility]:[phone] Patient's informed. Referral info f porfirio. Completed 12/04/2017 Visit Plan: Diabetes Mellitus - [...] change in blood pressure readings at home. Uwzridon-qvphnb-vzmvz to see Dr Villatoro Constipation-start linzess daily 11/19/2017 Appointment: Karmen Espinal WPtel: [phone] (30 min) Complex 11/19/2017 Patient Education: Patient Medication Summary Completed 11/19/2017 Care Plan: Referral Order bloating, nausea SNOMED-CT : 628221216 Pending 11/19/2017 Visit Plan: Low back pain- [...] acute changes. 10/02/2017 Appointment: Brunilda Maravilla WPtel: [address] [place], [place] [phone] (15 min) Moderate 10/02/2017 Patient Education: Patient [...] controlled. 07/23/2017 Appointment: [facility]inal [facility] [phone] [phone] (30 min) Complex 07/23/2017 Patient Education: [...] history 04/25/2017 Appointment: [facility] Espinal [facility] [phone] [phone] (30 min) Complex 04/25/2017 Patient Education: [...] readings are starting to become less controlled. Cygmat-hrsmkqr-eaqru labs 02/19/2017 Appointment: Karmen Espinal WPtel: [phone] [phone] (30 min) Complex 02/19/2017 Patient Education: Patient [...] 1 month 01/21/2017 Appointment: [facility] Espinal [facility] [phone] [phone] (30 min) Complex 01/21/2017 Patient Education: Patient Medication Summary Completed 01/21/2017 Patient Education: Smoking and Tobacco Addiction Completed 01/21/2017 Patient Education: Hypertension Completed 01/21/2017 Care Plan: Referral Order SNOMED-CT : [id number] Pending 01/21/2017 Visit Plan: Diabetes Mellitus - [...] acute changes. 12/20/2016 Appointment: Karmen Espinal WPtel: [facility]5 [phone] (30 min) Complex 12/20/2016 Patient Education: Patient Medication Summary Completed 12/20/2016 Patient Education: Smoking and Tobacco Addiction Completed 12/20/2016 Patient Education: Hypertension Completed 12/20/2016 Appointment: Karmen Espinal WPtel: [facility] [phone] (30 min) Complex 09/06/2016 Visit Plan: Diabetes Mellitus - con eugenie - per recent FSBS reports. I have [...] d level 08/23/2016 Appointment: Karmen Espinal WPtel: [id number] (30 min) Complex 08/23/2016 Patient Education: Patient [...] acute changes. 05/22/2016 Appointment: Karmen Espinal WPtel: [phone] (30 min) Complex 05/22/2016 Patient Education: Patient Medication Summary Completed 05/22/2016 Patient Education: Smoking and Tobacco Addiction Completed 05/22/2016 Care Plan: Cbc With Differential Ordered 05/22/2016 Care Plan: %Hba1C LOIN C : 59063-3 Ordered 05/22/2016 Care Plan: Tsh Ordered 05/22/2016 [...] update 02/24/2016 App[facility]ment[phone] ([facility] min) Complex 02/24/2016 Patient Education: [...] this regimen. 01/27/2016 App[facility]ment[phone] (30 min) Complex 01/27/2016 Patient Education: [...] use medication to assist cessation. [facility] Hyperlipidemia - pt has been counseled about [...] Completed 05/06/2015 Visit Plan: COPD EXACERBATION - MATERIAL LIAISON D is a chronic problem for this [...] POTENTIAL SIDE EFFECTS AND WORSENING OF SYMPTOMS. Bkizviul-grbhnaid-DRUO SIMVASTATIN X 2 WEEKS AND CALL WITH [...] Care Plan: COMPLETE CBC AUTOMATED LOINC : 32338-1 Ordered 03/24/2015 Visit Plan: Diabetes Mellitus - [...] for removal. 03/07/2015 Appointment: Violeta Ash WPtel: [id number] (15 min) Moderate 03/07/2015 Patient Education: Patient [...] Care Plan: COMPLETE CBC AUTOMATED LOINC : 03208-4 Ordered 12/23/2014 Visit Plan: BPPV - Benign [...] next appt 12/09/2014 Appointment: Karmen Espinal WPtel: [phone] [place] ([place]) New Patient 12/09/2014 Patient Education: Patient Medication Summary Completed 12/09/2014 Patient Education: .Amazing charts Parox ysmal positional vertigo Completed 12/09/2014 Patient Education: Smoking and Tobacco Addiction Completed 12/09/2014 Referral: Hugo Villatoro HPtel:[phone] [facility] [place] Referral Appointment Requested Referral: Luis Donohue [...] change in symptoms, worsening redness, warmth, discharge. STOP THE GLIPIZIDE CALL IF BLOOD SUGARS [...] Vitamin D deficiency-check vitamin D level . Hypertension - wel l controlled [...] readings are starting to become less controlled. Otmwqh-kfhabls-owqax labs . COPD -recent pneum onia-symptoms have [...] change in blood pressure readings at home. Vwsoszuf-szpemr-msxzm to see Dr Villatoro Constipation-start linzess daily [...] readings are starting to become less controlled. MELATONIN FOR SLEEP -START WITH 3MG AT [...] Gait instability-recommend patient use a walker . Diabetes Mellitus - controlled - per [...] medications. Vitamin d deficiency-check vitamin d level RESTART SIMVASTATIN START TOUJEO AT 30 UNITS [...] response to medications. RETURN FOR LABS GAIL RRMAYITO CONTINUOUS GLUCOSE MONITOR CHEST XRAY . COPD - chronic problem for this patien t. We have reviewed chronic treatment strategy, symptom control, and plans for acute exacerbations. No changes today to the current treatment plan as the patient is stable, monitor for acute changes. [facility] tobacco use -weight loss-order for chest xray [...] use-schedule low dose CT chest-60 pack/year history . Diabetes Mellitus - I have recommended [...] POTENTIAL SIDE EFFECTS AND WORSENING OF SYMPTOMS. Qqqksfmq-hkczaaiu-UAJD SIMVASTATIN X 2 WEEKS AND CALL WITH UPDATE
--- OUTSIDE RECORDS SUMMARY | 2020-03-29 07:37 | XMS REPORT | CCD ---
Author Author Dick Espinal Organization Violeta Ash MD, [facility] Address [address] [place] [address] Phone Care Team Providers Care Jacquard Loom Carpet Weaver Name Role Phone PP Unavailable CCM Unavailable Summary Purpose Interface Exchange Insurance Providers Payer name Policy type / Coverage type Covered republican ID Effective Begin Date Effective End Date WPS Medicare Part B Medicare Part B [id number] Unknown Unknown Bankers [place] Medicare Part B [id number] Unknown Unknown Family history Father Diagnosis Age At Onset Cancer Unknown Mother Diagnosis Age At Onset Cancer Unknown Social History Social History Element Codes Description Effective Dates Number of cigarettes/day Unknown 20 (One Pack) 03/03/2019 Marital status Unknown M arried 12/09/2014 Employment Unknown Retir ed 12/09/[address]: 52673715 Currently smokes tobacco 12/09/2014 Number of years using tobacco Unknown > 50 12/09/[address]: 031499538 Never drinks alcohol 12/09/2014 Allergies, Adverse Reactions, [...] Date Stop Date Sta tus Fill Instructions Toujeo SoloStar U-30 0 Insulin 300 unit/mL (1.5 mL) subcutaneous pen RxNorm: 8956117 35 Unit(s) SQ QHS 03/05/2019 07/02/2019 Active Dosage change! testosterone cypiona te 200 mg/mL intramuscular oil RxNorm: 6331421 1/2 Milliliter(s) IM 03/04/2019 03/04/2019 Inactive Toujeo SoloStar U-30 0 Insulin 300 unit/mL (1.5 mL) subcutaneous pen RxNorm: 6108790 30 Unit(s) SQ QHS 03/03/2019 03/04/2019 Inactive Xanax 0.5 mg tablet RxNorm: 739149 Tablet(s) as needed TAKE ONE TABLET BY M OUTH THREE TIMES A DAY 02/19/2019 04/19/2019 Active Xanax 0.5 mg tablet RxNorm: 808345 Tablet(s) TAKE ONE TABLET BY MOUTH THREE TIMES A DAY 02/19/2019 02/18/2019 Inactive hydrocodone 5 mg-linh taminophen 325 mg tablet RxNorm: 748185 1 Tablet(s) PO Q6-8H as needed 02/16/2019 03/12/2019 Active testosterone cypiona te 200 mg/mL intramuscular oil RxNorm: 3201805 Milliliter(s) IM 02/16/2019 02/16/2019 In active Protonix 40 mg table t,delayed release RxNorm: 548650 TAKE 1 TABLET BY MOUT H DAILY 02/02/2019 01/27/2020 Ac tive - Ref: [id number] simvastatin 40 mg ta blet RxNorm: 430325 TAKE 1 TABLET BY MOUT H DAILY AT BEDTIME 02/02/2019 01/27/2020 Ac tive - Ref: [id number] testosterone cypiona te 200 mg/mL intramuscular oil RxNorm: 6170302 Milliliter(s) IM 01/30/2019 01/30/2019 In active testosterone cypiona te 200 mg/mL intramuscular oil RxNorm: 7727314 1/2 Milliliter(s) IM [id number] 01/16/2019 05/15/2019 Active testosterone cypiona te 200 mg/mL intramuscular oil RxNorm: 5328751 Milliliter(s) IM 01/16/2019 01/16/2019 In active hydrocodone 5 mg-linh taminophen 325 mg tablet RxNorm: 343042 1 Tablet(s) PO Q6-8H as needed 01/14/2019 02/07/2019 Inactive testosterone cypiona te 200 mg/mL intramuscular oil RxNorm: 4505497 Milliliter(s) IM 01/01/2019 01/01/2019 In active Xanax 0.5 mg tablet RxNorm: 148055 1 Tablet(s) PO TID 12/18/2018 02/14/2019 Inactive testosterone cypiona te 200 mg/mL intramuscular oil RxNorm: 3393448 Milliliter(s) IM 12/17/2018 12/17/2018 In active hydrocodone 5 mg-linh taminophen 325 mg tablet RxNorm: 257256 1 Tablet(s) PO Q6-8H as needed 12/15/2018 01/08/2019 Inactive testosterone cypiona te 200 mg/mL intramuscular oil RxNorm: 4671837 Milliliter(s) IM 12/02/2018 12/02/2018 In active testosterone cypiona te 200 mg/mL intramuscular oil RxNorm: 7501389 Milliliter(s) IM 11/18/2018 11/18/2018 In active hydrocodone 5 mg-linh taminophen 325 mg tablet RxNorm: 988344 1 Tablet(s) PO Q6-8H as needed 11/13/2018 12/07/2018 Inactive testosterone cypiona te 200 mg/mL intramuscular oil RxNorm: 5709625 1/2 Milliliter(s) IM [id number] 11/04/2018 01/15/2019 Inactive testosterone cypiona te 200 mg/mL intramuscular oil RxNorm: 6250436 Milliliter(s) IM 11/04/2018 11/04/2018 In active nicotine 21 mg/24 hr daily transdermal patch RxNorm: 242745 1 TD daily 10/31/2018 10/30/2018 In active nicotine 21 mg/24 hr daily transdermal patch RxNorm: 983200 1 TD daily 10/31/2018 11/29/2018 In active meclizine 25 mg tablet RxNorm: 377283 1 Tablet(s) PO Q6 PRN TAKE ONE TABLET BY MOUTH EVERY 6 HOURS NEEDED 10/17/2018 01/14/2019 Inactive hydrocodone 5 mg-linh taminophen 325 mg tablet RxNorm: 344152 1 Tablet(s) PO Q6-8H as needed 10/17/2018 11/10/2018 Inactive metformin 500 mg tablet RxNorm: 687705 Tablet(s) TAKE 1 TABLET BY MOUTH DAILY 10/15/2018 10/09/2019 Ac tive lisinopril 10 mg tablet RxNorm: 134016 TAKE 1 TABLET BY MOUTH TWO TIMES DAILY 10/15/2018 10/09/2019 Ac tive - First Attempt Ref: [id number] testosterone cypiona te 200 mg/mL intramuscular oil RxNorm: 5370422 Milliliter(s) IM 10/14/2018 10/14/2018 In active Xanax 0.5 mg tablet RxNorm: 523524 1 Tablet(s) PO TID 10/03/2018 11/30/2018 Inactive testosterone cypiona te 200 mg/mL intramuscular oil RxNorm: 8407511 1/2 Milliliter(s) IM weekly 10/03/2018 11/03/2018 Inactive testosterone cypiona te 200 mg/mL intramuscular oil RxNorm: 5952152 Milliliter(s) IM 10/03/2018 10/03/2018 In active testosterone cypiona te 200 mg/mL intramuscular oil RxNorm: 1336666 Milliliter(s) IM 09/23/2018 09/23/2018 In active hydrocodone 5 mg-linh taminophen 325 mg tablet RxNorm: 297072 1 Tablet(s) PO Q6-8H as needed 09/22/2018 10/16/2018 Inactive testosterone cypiona te 200 mg/mL intramuscular oil RxNorm: 3109842 1/2 Milliliter(s) IM 09/02/2018 09/02/2018 Inactive testosterone enantha te 200 mg/mL intramuscular oil RxNorm: 683781 Milliliter(s) IM 08/21/2018 08/21/2018 In active hydrocodone 5 mg-linh taminophen 325 mg tablet RxNorm: 638961 1 Tablet(s) PO Q6-8H as needed 08/21/2018 09/14/2018 Inactive testosterone cypiona te 200 mg/mL intramuscular oil RxNorm: 0962421 Milliliter(s) IM 08/08/2018 08/08/2018 In active testosterone cypiona te 200 mg/mL intramuscular oil RxNorm: 9532068 1/2 Milliliter(s) IM 07/28/2018 07/28/2018 Inactive hydrocodone 5 mg-linh taminophen 325 mg tablet RxNorm: 032731 1 Tablet(s) PO Q6-8H as needed 07/21/2018 08/14/2018 Inactive testosterone cypiona te 200 mg/mL intramuscular oil RxNorm: 520173 Milliliter(s) IM 07/16/2018 07/16/2018 In active testosterone cypiona te 200 mg/mL intramuscular oil RxNorm: 594146 Milliliter(s) IM 07/02/2018 07/02/2018 In active Xanax 0.5 mg tablet RxNorm: 256175 1 Tablet(s) PO TID 06/27/2018 08/24/2018 Inactive testosterone cypiona te 200 mg/mL intramuscular oil RxNorm: 353984 Milliliter(s) IM 06/24/2018 06/24/2018 In active hydrocodone 5 mg-linh taminophen 325 mg tablet RxNorm: 976691 1 Tablet(s) PO Q6-8H as needed 06/23/2018 07/17/2018 Inactive testosterone cypiona te 200 mg/mL intramuscular oil RxNorm: 752252 Milliliter(s) IM 06/13/2018 06/13/2018 In active testosterone cypiona te 200 mg/mL intramuscular oil RxNorm: 706622 Milliliter(s) IM 06/05/2018 06/05/2018 In active testosterone cypiona te 200 mg/mL intramuscular oil RxNorm: 6902090 1/2 Milliliter(s) IM weekly 05/30/2018 09/26/2018 Inactive testosterone cypiona te 200 mg/mL intramuscular oil RxNorm: 461826 Milliliter(s) IM 05/30/2018 05/30/2018 In active testosterone cypiona te 200 mg/mL intramuscular oil RxNorm: 956807 Milliliter(s) IM 05/22/2018 05/22/2018 In active hydrocodone 5 mg-linh taminophen 325 mg tablet RxNorm: 639203 1 Tablet(s) PO Q6-8H as needed 05/20/2018 06/13/2018 Inactive testosterone cypiona te 200 mg/mL intramuscular oil RxNorm: 954456 1/2 Milliliter(s) IM 05/12/2018 05/12/2018 Inactive testosterone cypiona te 200 mg/mL intramuscular oil RxNorm: 922670 Milliliter(s) IM 05/02/2018 05/02/2018 In active testosterone cypiona te 200 mg/mL intramuscular oil RxNorm: 026887 1/2 Milliliter(s) IM weekly 04/24/2018 05/29/2018 Inactive testosterone cypiona te 200 mg/mL intramuscular oil RxNorm: 104368 0.5 Milliliter(s) IM 04/24/2018 04/24/2018 Inactive hydrocodone 5 mg-linh taminophen 325 mg tablet RxNorm: 860921 1 Tablet(s) PO Q6-8H as needed 04/22/2018 05/16/2018 Inactive testosterone cypiona te 200 mg/mL intramuscular oil RxNorm: 082753 1/2 Milliliter(s) IM 04/17/2018 04/17/2018 Inactive testosterone cypiona te 200 mg/mL intramuscular oil RxNorm: 822114 1/2 Milliliter(s) IM weekly 04/16/2018 04/23/2018 Inactive Jardiance 10 mg tablet RxNorm: 9197180 1 Tablet(s) PO daily 04/04/2018 12/29/2018 Inactive testosterone cypiona te 200 mg/mL intramuscular oil RxNorm: 823319 1 Milliliter(s) IM monthly 04/04/2018 04/15/2018 Inactive Protonix 40 mg table t,delayed release RxNorm: 709730 1 Tablet(s) PO daily TAKE 1 TABLET BY MOUTH DAILY 04/04/2018 02/01/2019 Inactive - Ref: [id number] hydrocodone 5 mg-linh taminophen 325 mg tablet RxNorm: 774170 1 Tablet(s) PO Q6-8H as needed 03/19/2018 04/12/2018 Inactive Flomax 0.4 mg capsule RxNorm: 331224 1 Capsule(s) PO daily 03/10/2018 03/04/2019 Inactive Urecholine 25 mg tablet RxNorm: 021978 1 Tablet(s) PO BID 03/10/2018 07/07/2018 Inactive ketorolac 60 mg/2 mL intramuscular solution RxNorm: 1559998 Milliliter(s) IM 03/07/2018 03/07/2018 In active metformin 500 mg tablet RxNorm: 549746 Tablet(s) TAKE 1 TABLET BY MOUTH DAILY 02/20/2018 02/13/2019 In active 1 q am and 1/2 tab q pm hydrocodone 5 mg-linh taminophen 325 mg tablet RxNorm: 589014 1 Tablet(s) PO Q6-8H as needed 02/20/2018 03/16/2018 Inactive Kenalog 40 mg/mL bartolome pension for injection RxNorm: 3311303 1.5 Milliliter(s) In j 01/30/2018 01/30/2018 In active hydrocodone 5 mg-linh taminophen 325 mg tablet RxNorm: 580665 1 Tablet(s) PO Q6-8H as needed 01/23/2018 02/16/2018 Inactive Urecholine 25 mg tablet RxNorm: 925200 1 Tablet(s) PO BID 01/22/2018 03/09/2018 Inactive Flomax 0.4 mg capsule RxNorm: 316054 1 Capsule(s) PO daily 01/22/2018 03/09/2018 Inactive Flomax 0.4 mg capsule RxNorm: 269907 1 Capsule(s) PO daily 01/22/2018 01/21/2018 Inactive Urecholine 25 mg tablet RxNorm: 104720 1 Tablet(s) PO BID 01/22/2018 01/21/2018 Inactive testosterone cypiona te 200 mg/mL intramuscular oil RxNorm: 776723 Milliliter(s) IM 01/17/2018 01/17/2018 In active testosterone cypiona te 200 mg/mL intramuscular oil RxNorm: 864480 1 Milliliter(s) IM monthly 01/17/2018 04/03/2018 Inactive doxycycline hyclate 100 mg tablet RxNorm: 392145 1 Tablet(s) PO BID 01/14/2018 01/23/2018 Inactive lisinopril 10 mg tablet RxNorm: 014302 TAKE 1 TABLET BY MOUTH TWO TIMES DAILY 01/14/2018 10/14/2018 In active - First Attempt Ref: [id number] nystatin 100,000 uni t/mL oral suspension RxNorm: 093150 4 Milliliter(s) PO QI D Swish and swallow 01/08/2018 01/07/2018 Inactive nystatin 100,000 uni t/mL oral suspension RxNorm: 564351 4 Milliliter(s) PO QI D Swish and swallow 01/08/2018 01/12/2018 Inactive Xanax 0.5 mg tablet RxNorm: 879329 1 Tablet(s) PO TID 01/08/2018 12/23/2018 Inactive simvastatin 40 mg ta blet RxNorm: 986603 TAKE 1 TABLET BY MOUT H DAILY AT BEDTIME 12/30/2017 12/24/2018 In active - First Attempt Ref: [id number] metformin 500 mg tablet RxNorm: 083479 TAKE 1 TABLET BY MOUTH DAILY 12/30/2017 02/19/2018 Inactive - First Attempt Ref: [id number] hydrocodone 5 mg-linh taminophen 325 mg tablet RxNorm: 840073 1 Tablet(s) PO Q6-8H as needed 12/25/2017 01/18/2018 Inactive Protonix 40 mg table t,delayed release RxNorm: 490573 Tablet(s) TAKE 1 TABL ET BY MOUTH DAILY 11/20/2017 04/03/2018 Inactive - Ref: [id number] Linzess 72 mcg capsule RxNorm: 1393593 1 Capsule(s) PO daily 11/19/2017 No Stop Date Active hydrocodone 5 mg-linh taminophen 325 mg tablet RxNorm: 739244 1 Tablet(s) PO Q6-8H as needed 11/19/2017 12/13/2017 Inactive hydrocodone 5 mg-linh taminophen 325 mg tablet RxNorm: 632395 1 Tablet(s) PO Q6-8H as needed 10/28/2017 11/18/2017 Inactive Xanax 0.5 mg tablet RxNorm: 362135 1 Tablet(s) PO TID 10/25/2017 12/22/2017 Inactive Xanax 0.5 mg tablet RxNorm: 488919 TAKE ONE TABLET BY MOUTH THREE TIMES A D AY 10/24/2017 12/01/2018 In active hydrocodone 5 mg-linh taminophen 325 mg tablet RxNorm: 538260 1 Tablet(s) PO Q6-8H as needed 09/30/2017 10/24/2017 Inactive Protonix 40 mg table t,delayed release RxNorm: 045009 TAKE 1 TABLET BY MOUT H DAILY 09/16/2017 11/19/2017 In active - Ref: [id number] Yovana WheeleroStar 300 unit/mL (1.5 mL) subcutaneous insulin pen RxNorm: 3941194 35 Unit(s) SQ QHS 08/30/2017 03/02/2019 Inactive dosage increase hydrocodone 5 mg-linh taminophen 325 mg tablet RxNorm: 887527 1 Tablet(s) PO Q6-8H as needed 08/28/2017 09/29/2017 Inactive hydrocodone 5 mg-linh taminophen 325 mg tablet RxNorm: 792989 1 Tablet(s) PO Q6-8H as needed 07/23/2017 08/24/2017 Inactive lisinopril 10 mg tablet RxNorm: 354055 1 Tablet(s) PO BID Take 1 tablet by mout h daily 07/23/2017 01/13/2018 Inactive hydrocodone 5 mg-linh taminophen 325 mg tablet RxNorm: 148229 1 Tablet(s) PO Q6-8H as needed 06/27/2017 07/22/2017 Inactive Xanax 0.5 mg tablet RxNorm: 917605 1 Tablet(s) PO TID 06/18/2017 10/25/2017 Inactive hydrocodone 5 mg-linh taminophen 325 mg tablet RxNorm: 955186 1 Tablet(s) PO Q6-8H as needed 05/27/2017 06/26/2017 Inactive Levaquin 500 mg tablet RxNorm: 116332 1 Tablet(s) PO daily 05/24/2017 05/23/2017 Inactive Levaquin 500 mg tablet RxNorm: 775172 1 Tablet(s) PO daily 05/24/2017 05/30/2017 Inactive Protonix 40 mg table t,delayed release RxNorm: 430895 Take 1 tablet by mout h daily 04/29/2017 09/15/2017 In active - Ref: [id number] hydrocodone 5 mg-linh taminophen 325 mg tablet RxNorm: 633364 1 Tablet(s) PO Q6-8H as needed 04/25/2017 05/26/2017 Inactive metformin 500 mg tablet RxNorm: 188971 Take 1 tablet by mouth daily 04/08/2017 12/29/2017 Inactive - First Attempt Ref: [id number] hydrocodone 5 mg-linh taminophen 325 mg tablet RxNorm: 887680 1 Tablet(s) PO Q6-8H as needed 03/27/2017 04/24/2017 Inactive hydrocodone 5 mg-linh taminophen 325 mg tablet RxNorm: 703563 1 Tablet(s) PO Q6-8H as needed 02/25/2017 03/26/2017 Inactive Protonix 40 mg table t,delayed release RxNorm: 066264 Tablet(s) Take 1 tabl et by mouth BID 02/25/2017 04/28/2017 Inactive Protonix 40 mg table t,delayed release RxNorm: 017991 Tablet(s) Take 1 tabl et by mouth BID 02/19/2017 02/18/2017 Inactive Protonix 40 mg table t,delayed release RxNorm: 255574 Tablet(s) Take 1 tabl et by mouth BID 02/19/2017 02/24/2017 Inactive lisinopril 10 mg tablet RxNorm: 345371 Take 1 tablet by mouth daily 01/29/2017 07/22/2017 Inactive - First Attempt Ref: [id number] hydrocodone 5 mg-linh taminophen 325 mg tablet RxNorm: 035586 1 Tablet(s) PO Q6-8H as needed 01/25/2017 02/24/2017 Inactive simvastatin 40 mg ta blet RxNorm: 378317 Tablet(s) Take 1 tabl et by mouth daily at bedtime 01/03/2017 12/28/2017 Inactive lisinopril 10 mg tablet RxNorm: 963305 Tablet(s) Take 1 tablet by mouth daily 01/03/2017 01/28/2017 In active Protonix 40 mg table t,delayed release RxNorm: 162418 Tablet(s) Take 1 tabl et by mouth daily 12/28/2016 02/18/2017 Inactive hydrocodone 5 mg-linh taminophen 325 mg tablet RxNorm: 677131 1 Tablet(s) PO Q6-8H as needed 12/26/2016 01/24/2017 Inactive Xanax 0.5 mg tablet RxNorm: 721535 1 Tablet(s) PO TID 12/12/2016 03/11/2017 Inactive simvastatin 40 mg ta blet RxNorm: 080631 Tablet(s) Take 1 tabl et by mouth daily at bedtime 11/30/2016 01/02/2017 Inactive simvastatin 40 mg ta blet RxNorm: 606778 Take 1 tablet by mout h daily at bedtime 11/29/2016 11/29/2016 In active - First Attempt Ref: [id number] Protonix 40 mg table t,delayed release RxNorm: 650189 Take 1 tablet by mout h daily 11/27/2016 12/27/2016 In active - First Attempt Ref: [id number] hydrocodone 5 mg-linh taminophen 325 mg tablet RxNorm: 063144 1 Tablet(s) PO Q6-8H as needed 11/26/2016 12/25/2016 Inactive hydrocodone 5 mg-linh taminophen 325 mg tablet RxNorm: 186665 1 Tablet(s) PO Q8 as needed 10/24/2016 11/25/2016 Inactive Xanax 0.5 mg tablet RxNorm: 124402 1 Tablet(s) PO TID 10/09/2016 12/25/2016 Inactive hydrocodone 5 mg-linh taminophen 325 mg tablet RxNorm: 689919 1 Tablet(s) PO Q8 as needed 09/27/2016 10/23/2016 Inactive lisinopril 10 mg tablet RxNorm: 237586 Take 1 tablet by mouth daily 09/25/2016 01/02/2017 Inactive - First Attempt Ref: [id number] Vitamin D2 50,000 un it capsule RxNorm: 638820 1 Capsule(s) PO QW 09/06/2016 12/01/2018 Inactive hydrocodone 5 mg-linh taminophen 325 mg tablet RxNorm: 344554 1 Tablet(s) PO Q8 as needed 08/28/2016 09/26/2016 Inactive Tojanie SoloStar 300 unit/mL (1.5 mL) subcutaneous insulin pen RxNorm: 9943416 25 Unit(s) SQ QHS 08/23/2016 08/29/2017 Inactive dosage increase hydrocodone 5 mg-linh taminophen 325 mg tablet RxNorm: 071758 1 Tablet(s) PO Q8 as needed 07/26/2016 08/27/2016 Inactive Protonix 40 mg table t,delayed release RxNorm: 615889 Take 1 tablet by mout h daily 07/24/2016 11/26/2016 In active - First Attempt Ref: [id number] hydrocodone 5 mg-linh taminophen 325 mg tablet RxNorm: 416124 1 Tablet(s) PO Q8 as needed 06/19/2016 07/21/2016 Inactive Yovana SoloStar 300 unit/mL (1.5 mL) subcutaneous insulin pen RxNorm: 5591716 32 Unit(s) SQ QHS 05/30/2016 08/22/2016 Inactive dosage increase hydrocodone 5 mg-linh taminophen 325 mg tablet RxNorm: 365184 1 Tablet(s) PO Q8 as needed 05/22/2016 06/18/2016 Inactive hydrocodone 5 mg-linh taminophen 325 mg tablet RxNorm: 350385 1 Tablet(s) PO Q8 as needed 04/18/2016 05/17/2016 Inactive Protonix 40 mg table t,delayed release RxNorm: 344958 Take 1 tablet by mout h daily 04/05/2016 07/03/2016 In active - Ref: [id number] metformin 500 mg tablet RxNorm: 643565 Take 1 tablet by mouth daily 04/04/2016 07/02/2016 Inactive - Ref: [id number] Xanax 0.5 mg tablet RxNorm: 863448 1 Tablet(s) PO TID 03/30/2016 09/25/2016 Inactive Xanax 0.5 mg tablet RxNorm: 565813 1 Tablet(s) PO TID 03/23/2016 12/25/2016 Inactive hydrocodone 5 mg-linh taminophen 325 mg tablet RxNorm: 584469 1 Tablet(s) PO Q8 as needed 03/06/2016 04/04/2016 Inactive Cipro 500 mg tablet RxNorm: 284470 1 Tablet(s) PO BID 02/24/2016 03/04/2016 Inactive Miralax 17 gram oral powder packet RxNorm: 130351 1 packet PO every oth er day 01/27/2016 No Stop Date Active hydrocodone 5 mg-linh taminophen 325 mg tablet RxNorm: 471126 1 Tablet(s) PO Q8 as needed 01/27/2016 02/25/2016 Inactive lisinopril 10 mg tablet RxNorm: 299828 1 Tablet(s) PO daily 01/12/2016 09/24/2016 Inactive simvastatin 40 mg ta blet RxNorm: 186295 1 Tablet(s) PO QHS 01/12/2016 11/28/2016 Inactive simvastatin 40 mg ta blet RxNorm: 360899 1 Tablet(s) PO QHS 01/11/2016 01/11/2016 Inactive lisinopril 10 mg tablet RxNorm: 075771 1 Tablet(s) PO daily 01/06/2016 01/11/2016 Inactive simvastatin 40 mg ta blet RxNorm: 250620 1 Tablet(s) PO daily 12/28/2015 01/10/2016 Inactive hydrocodone 5 mg-linh taminophen 325 mg tablet RxNorm: 665584 1 Tablet(s) PO Q8 as needed 12/27/2015 01/26/2016 Inactive Xanax 0.5 mg tablet RxNorm: 707594 1 Tablet(s) PO TID 11/30/2015 03/29/2016 Inactive Toujeo SoloStar 300 unit/mL (1.5 mL) subcutaneous insulin pen RxNorm: 9771092 30 Unit(s) SQ QHS 11/25/2015 05/29/2016 Inactive dosage increase meclizine 25 mg tablet RxNorm: 234885 1 Tablet(s) PO Q6 PRN TAKE ONE TABLET BY MOUTH EVERY 6 HOURS NEEDED 11/25/2015 02/22/2016 Inactive omeprazole 20 mg cap jacquelyn,delayed release RxNorm: 964111 1 Capsule(s) PO daily 10/06/2015 01/26/2016 In active Toujeo SoloStar 300 unit/mL (1.5 mL) subcutaneous insulin pen RxNorm: 4043920 35 Unit(s) SQ QHS 08/02/2015 11/24/2015 Inactive dosage increase Vitamin D2 50,000 un it capsule RxNorm: 051402 1 Capsule(s) PO QW 08/02/2015 09/05/2016 Inactive hydrocodone 5 mg-linh taminophen 325 mg tablet RxNorm: 448338 1 Tablet(s) PO Q8 as needed 07/11/2015 12/26/2015 Inactive Xanax 0.5 mg tablet RxNorm: 103821 1 Tablet(s) PO TID 06/30/2015 06/29/2015 Inactive Xanax 0.5 mg tablet RxNorm: 942289 1 Tablet(s) PO TID 06/30/2015 12/25/2015 Inactive hydrocodone 5 mg-linh taminophen 325 mg tablet RxNorm: 148497 1 Tablet(s) PO Q8 as needed 05/06/2015 07/10/2015 Inactive Symbicort 160 mcg-4. 5 mcg/actuation HFA aerosol inhaler RxNorm: 2541572 INH 04/25/2015 No Stop Date Active Levemir FlexTouch 10 0 unit/mL (3 mL) subcutaneous insulin pen RxNorm: 844824 30 Unit(s) SQ QHS 04/25/2015 11/24/2015 Inactive prednisone 20 mg tablet RxNorm: 521954 1 Tablet(s) PO BID 04/25/2015 04/29/2015 Inactive metformin 500 mg tablet RxNorm: 421243 1 Tablet(s) PO daily 04/25/2015 04/03/2016 Inactive amoxicillin 500 mg c apsule RxNorm: 262413 1 Capsule(s) PO TID 04/14/2015 04/13/2015 Inactive amoxicillin 500 mg c apsule RxNorm: 571533 1 Capsule(s) PO TID a nd recommend probiotic tid (otc) 04/14/2015 04/20/2015 Inactive Kenalog 40 mg/mL bartolome pension for injection RxNorm: 1350092 Milliliter(s) Inj 04/12/2015 04/12/2015 In active hydrocodone 5 mg-linh taminophen 325 mg tablet RxNorm: 569501 1 Tablet(s) PO Q8 as needed 03/30/2015 05/05/2015 Inactive Lantus 100 unit/mL s ubcutaneous solution RxNorm: 103984 25 Unit(s) SQ QPM 03/24/2015 04/25/2015 In active meclizine 25 mg tablet RxNorm: 157943 Tablet(s) TAKE ONE TABLET BY MOUTH EVERY 6 HOURS NEEDED 03/08/2015 04/06/2015 Inactive meclizine 25 mg tablet RxNorm: 546725 TAKE ONE TABLET BY MOUTH EVERY 6 HOURS A S NEEDED 02/25/2015 03/03/2015 Inactive Lantus 100 unit/mL s ubcutaneous solution RxNorm: 353760 20 Unit(s) SQ QPM 02/23/2015 03/23/2015 In active Lantus 100 unit/mL s ubcutaneous solution RxNorm: 039218 25 Unit(s) SQ QPM 02/23/2015 02/22/2015 In active hydrocodone 5 mg-linh taminophen 325 mg tablet RxNorm: 538870 1 Tablet(s) PO Q8 as needed 02/17/2015 03/29/2015 Inactive Xanax 0.5 mg tablet RxNorm: 768071 1 Tablet(s) PO TID 02/03/2015 06/29/2015 Inactive Lantus 100 unit/mL s ubcutaneous solution RxNorm: 476650 20 Unit(s) SQ QPM 12/29/2014 02/22/2015 In active Phenergan 12.5 mg re ctal suppository RxNorm: 330562 1 Suppository RTL Q6 PRN 12/23/2014 No Stop Date Active nausea Kenalog 40 mg/mL bartolome pension for injection RxNorm: 3406525 Milliliter(s) Inj 12/23/2014 12/23/2014 In active prednisone 20 mg tablet RxNorm: 570367 2 Tablet(s) PO daily 12/13/2014 12/17/2014 Inactive prednisone 20 mg tablet RxNorm: 614927 2 Tablet(s) PO daily 12/13/2014 12/12/2014 Inactive meclizine 25 mg tablet RxNorm: 458753 1 Tablet(s) PO Q6 PRN 12/09/2014 02/24/2015 Inactive hydrocodone 5 mg-linh taminophen 325 mg tablet RxNorm: 516097 1 Tablet(s) PO Q8 as needed 12/09/2014 02/16/2015 Inactive Vitamin B-12 1,000 m cg/mL oral drops RxNorm: 9280682 1 Milliliter(s) PO d aily No Start Date Active Alphagan P 0.1 % eye drops RxNorm: 073108 1 Drop(s) OPH BID No Start Date Active aspirin 325 mg table t,delayed release RxNorm: 425006 1 Tablet(s) PO daily No Start Date Active Tricor 145 mg tablet RxNorm: 156099 1 Tablet(s) PO daily No Start Date Active vitamin [id number] B1 oral liquid RxNorm: 1,000 Microgram(s) PO daily No Start Date Active atenolol 50 mg tablet RxNorm: 615047 1 Tablet(s) PO daily No Start Date Active Protonix 40 mg table t,delayed release RxNorm: 641344 1 Tablet(s) PO daily No Start Date 04/04/2016 Inactive glipizide 10 mg tablet RxNorm: 247378 1 Tablet(s) PO BID No Start Date 03/22/2015 Inactive Lantus 100 unit/mL s ubcutaneous solution RxNorm: 778163 15 Unit(s) SQ QPM No Start Date 12/28/2014 Inactive lisinopril 10 mg tablet RxNorm: 859982 1 Tablet(s) PO daily No Start Date 01/05/2016 Inactive Vitamin D2 50,000 un it capsule RxNorm: 863014 1 Capsule(s) PO QW No Start Date 08/01/2015 Inactive Toujeo SoloStar 300 unit/mL (1.5 mL) subcutaneous insulin pen RxNorm: 3396741 30 Unit(s) SQ QHS No Start Date 08/01/2015 Inactive simvastatin 40 mg ta blet RxNorm: 447820 1 Tablet(s) PO daily No Start Date 12/27/2015 Inactive testosterone cypiona te 200 mg/mL intramuscular oil RxNorm: 268982 1 Milliliter(s) IM monthly No Start Date 01/16/2018 Inactive hydrocodone 5 mg-linh taminophen 325 mg tablet RxNorm: 198691 1 Tablet(s) PO Q8 as needed No Start Date 12/08/2014 Inactive metformin 500 mg tablet RxNorm: 489065 1 Tablet(s) PO daily No Start Date 04/24/2015 Inactive omeprazole 20 mg cap jacquelyn,delayed release RxNorm: 381291 1 Capsule(s) PO daily No Start Date 10/05/2015 Inactive Flomax 0.4 mg capsule RxNorm: 805728 1 Capsule(s) PO daily No Start Date 03/23/2015 Inactive Medication Administered Medication Codes Instruc tions Start Date Status testosterone cypionate 200 mg/mL intramuscular oil RxNorm: 3379869 1/2Milliliter 03/04/2019 No longer Active testosterone cypionate 200 mg/mL intramuscular oil RxNorm: 0582829 Milliliter 02/16/2019 No longer Active testosterone cypionate 200 mg/mL intramuscular oil RxNorm: 6766320 Milliliter 01/30/2019 No longer Active testosterone cypionate 200 mg/mL intramuscular oil RxNorm: [id number] [facility] 01/16/2019 No longer Active testosterone cypionate 200 mg/mL intramuscular oil RxNorm: 3457495 [facility] 01/01/2019 No longer Active testosterone cypionate 200 mg/mL intramuscular oil RxNorm: 6402724 [facility] 12/17/2018 No longer Active testosterone cypionate 200 mg/mL intramuscular oil RxNorm: 8416185 [facility] 12/02/2018 No longer Active testosterone cypionate 200 mg/mL intramuscular oil RxNorm: 3711534 [facility] 11/18/2018 No longer Active testosterone cypionate 200 mg/mL intramuscular oil RxNorm: 8674947 [facility] 11/04/2018 No longer Active testosterone cypionate 200 mg/mL intramuscular oil RxNorm: 7430553 [facility] 10/14/2018 No longer Active testosterone cypionate 200 mg/mL intramuscular oil RxNorm: 1126547 [facility] 10/03/2018 No longer Active testosterone cypionate 200 mg/mL intramuscular oil RxNorm: 0066923 [facility] 09/23/2018 No longer Active testosterone cypionate 200 mg/mL intramuscular oil RxNorm: 8645893 1/2[facility] 09/02/2018 No longer Active testosterone enanthate 200 mg/mL intramuscular oil RxNorm: 022554 [facility] 08/21/2018 No longer Active testosterone cypionate 200 mg/mL intramuscular oil RxNorm: 9714011 [facility] 08/08/2018 No longer Active testosterone cypionate 200 mg/mL intramuscular oil RxNorm: 8191410 /2[facility] 07/28/2018 No longer Active testosterone cypionate 200 mg/mL intramuscular oil RxNorm: 825816 [facility] 07/16/2018 No longer Active testosterone cypionate 200 mg/mL intramuscular oil RxNorm: 863260 [facility] 07/02/2018 No longer Active testosterone cypionate 200 mg/mL intramuscular oil RxNorm: 641251 [facility] 06/24/2018 No longer Active testosterone cypionate 200 mg/mL intramuscular oil RxNorm: 449779 [facility] 06/13/2018 No longer Active testosterone cypionate 200 mg/mL intramuscular oil RxNorm: 049803 [facility] 06/05/2018 No longer Active testosterone cypionate 200 mg/mL intramuscular oil RxNorm: 440801 [facility] 05/30/2018 No longer Active testosterone cypionate 200 mg/mL intramuscular oil RxNorm: 098912 [facility] 05/22/2018 No longer Active testosterone cypionate 200 mg/mL intramuscular oil RxNorm: 222396 1/2[facility] 05/12/2018 No longer Active testosterone cypionate 200 mg/mL intramuscular oil RxNorm: 538757 [facility] 05/02/2018 No longer Active testosterone cypionate 200 mg/mL intramuscular oil RxNorm: 220510 0.5[facility] 04/24/2018 No longer Active testosterone cypionate 200 mg/mL intramuscular oil RxNorm: 747308 1/2[facility] 04/17/2018 No longer Active ketorolac 60 mg/2 mL intramuscular solution RxNorm: 9778798 [facility] 03/07/2018 No longer Active Kenalog 40 mg/mL suspension for injection RxNorm: 6942607 1.5[facility] 01/30/2018 No longer Active testosterone cypionate 200 mg/mL intramuscular oil RxNorm: 519674 [facility] 01/17/2018 No longer Active Kenalog 40 mg/mL suspension for injection RxNorm: 3188980 [facility] 04/12/2015 No longer Active Kenalog 40 mg/mL suspension for injection RxNorm: 2725544 [facility] 12/23/2014 No longer Active Immunizations Vaccine [...] Code Item Item Code Result Date B12 [id number] B12 432.00 pg/ml 03/05/2019 %Hba1C Foh293 % HbA1c 52069-2 7.9 % 03/04/2019 %Hba1C Nvq048 Gluc Ave 180 mg/dL 03/04/2019 Testosterone Tgz356 Testo 142.2 ng/dL 03/04/2019 Cbc With Differential [...] 33.6 pg 03/04/2019 Cbc With Differential Ord2 [place]% 6.9 % 03/04/2019 Cbc With Differential Ord2 [...] 2.56 K/ul 03/04/2019 Cbc With Differential Ord2 [place] ABS# 0.5 K/ul 03/04/2019 Cbc With Differential Ord2 E[place] ABS# 0.4 K/ul 03/04/2019 Cbc With Differential Ord2 Baso ABS# 0.0 K/ul 03/04/2019 Lipid Ord30 CHOL 114 mg/dL 03/04/2019 Lipid Ord30 HDL 25.0 mg/dl 03/04/2019 Lipid Ord30 TRIG 119 mg/dL 03/04/2019 Lipid Ord30 LDL 65 mg/dL 03/04/2019 Lipid Ord30 C/HDL 4.6 Ratio 03/04/2019 Tsh Ord6 TSH (3rd IS) 3.85 uIU/mL 03/04/2019 Comp Metabolic Akm143 NA 142 mEq/L 03/04/2019 Comp Metabolic Rzf736 K 4.5 mEq/L 03/04/2019 Comp Metabolic Lax089 CL 105 mEq/L 03/04/2019 Comp Metabolic Avo625 CO2 30.0 mEq/L 03/04/2019 Comp Metabolic Ghk750 AN ION GAP 12 03/04/2019 Comp Metabolic Ytp248 GL UCOSE 92 mg/dL 03/04/2019 Comp Metabolic Jcd609 Cr eat 1.0 mg/dL 03/04/2019 Comp Metabolic Ndn036 eG FR 80 ml/min/1.73m2 03/04 Comp Metabolic Hfi620 BUN 20 mg/dL 03/04/2019 Comp Metabolic Bct061 B/ C Ratio 20.8 Ratio 03/04/2019 Comp Metabolic Ieq351 CA LCIUM 9.0 mg/dL 03/04/2019 Comp Metabolic Ptb804 AL K PHOS 67 U/L 03/04/2019 Comp Metabolic Quo397 T(SGOT) 17 U/L 03/04/2019 Comp Metabolic Ccd816 AL T(SGPT) 17 U/L 03/04/2019 Comp Metabolic Rxl413 BI LI T 0.4 mg/dL 03/04/2019 Comp Metabolic Xpi515 AL BUMIN 3.9 g/dL 03/04/2019 Comp Metabolic Wvt027 TP RO 6.5 g/dL 03/04/2019 Comp Metabolic Epq942 GL OB 2.6 g/dL 03/04/2019 Comp Metabolic Ack176 A/ G Ratio 1.5 Ratio 03/04/2019 Comp Metabolic Ntm571 Os mo 285 mOsmo 03/04/2019 Cbc With [...] 33.4 pg 12/02/2018 Cbc With Differential Ord2 [place]% 8.0 % 12/02/2018 Cbc With Differential Ord2 [...] 2.13 K/ul 12/02/2018 Cbc With Differential Ord2 [place] ABS# 0.6 K/ul 12/02/2018 Cbc With Differential Ord2 Eos ABS# 0.4 K/ul 12/02/2018 Cbc With Differential Ord2 Baso ABS# 0.0 K/ul 12/02/2018 Testosterone Yak289 Testo 213.5 ng/dL 12/02/2018 A1C Frequency Lea161 A1CF 47947-9 Last A1C performed [place] [facility] [place]: 201812/02/2018 Testosterone Fbq008 Testo 669.0 ng/dL 09/08/2018 %Hba1C Oil631 % HbA1c 51864-2 7.4 % 09/08/2018 %Hba1C Inq305 Gluc Ave 166 mg/dL 09/08/2018 Lipid Ord30 CHOL 114 mg/dL 09/08/2018 Lipid Ord30 HDL 28.0 mg/dl 09/08/2018 Lipid Ord30 TRIG 154 mg/dL 09/08/2018 Lipid Ord30 LDL 55 mg/dL 09/08/2018 Lipid Ord30 C/HDL 4.1 Ratio 09/08/2018 Comp Metabolic Zxk135 NA 137 mEq/L 09/08/2018 Comp Metabolic Miv283 K 4.3 mEq/L 09/08/2018 Comp Metabolic Qam798 CL 100 mEq/L 09/08/2018 Comp Metabolic Cay597 CO2 27.0 mEq/L 09/08/2018 Comp Metabolic Naw947 AN ION GAP 14 09/08/2018 Comp Metabolic Bqi479 GL UCOSE 85 mg/dL 09/08/2018 Comp Metabolic Ryw170 Cr eat 1.1 mg/dL 09/08/2018 Comp Metabolic Urp314 eG FR 70 ml/min/1.73m2 09/08 Comp Metabolic Awc797 BUN 11 mg/dL 09/08/2018 Comp Metabolic Qdh631 B/ C Ratio 10.3 Ratio 09/08/2018 Comp Metabolic Gth072 CA LCIUM 9.2 mg/dL 09/08/2018 Comp Metabolic Kqq111 AL K PHOS 65 U/L 09/08/2018 Comp Metabolic Axk350 T(SGOT) 16 U/L 09/08/2018 Comp Metabolic Gdv679 AL T(SGPT) 14 U/L 09/08/2018 Comp Metabolic Nug486 BI LI T 0.6 mg/dL 09/08/2018 Comp Metabolic Qnz437 AL BUMIN 4.0 g/dL 09/08/2018 Comp Metabolic Hbh174 TP RO 6.6 g/dL 09/08/2018 Comp Metabolic Anj444 GL OB 2.6 g/dL 09/08/2018 Comp Metabolic Uwe831 A/ G Ratio 1.6 Ratio 09/08/2018 Comp Metabolic Knf316 Os mo 272 mOsmo 09/08/2018 Vitamin D 25 Oh Mym8168 VITAMIN D, 25 HYDROXY 37.17 ng/mL 09/08/2018 [...] 33.3 pg 09/08/2018 Cbc With Differential Ord2 [place]% 8.1 % 09/08/2018 Cbc With Differential Ord2 [...] 2.44 K/ul 09/08/2018 Cbc With Differential Ord2 [place] ABS# 0.6 K/ul 09/08/2018 Cbc With Differential Ord2 Eos ABS# 0.3 K/ul 09/08/2018 Cbc With Differential Ord2 Baso ABS# 0.0 K/ul 09/08/2018 Tsh Ord6 TSH (3rd IS) 2.72 uIU/mL 09/08/2018 Comp Metabolic Bwy134 NA 139 mEq/L 04/01/2018 Comp Metabolic Blb020 K 4.2 mEq/L 04/01/2018 Comp Metabolic Fst587 CL 102 mEq/L 04/01/2018 Comp Metabolic Pqg142 CO2 29.0 mEq/L 04/01/2018 Comp Metabolic Ldw199 AN ION GAP 12 04/01/2018 Comp Metabolic Qxf316 GL UCOSE 87 mg/dL 04/01/2018 Comp Metabolic Cav548 Cr eat 1.1 mg/dL 04/01/2018 Comp Metabolic Vcb698 eG FR 70 ml/min/1.73m2 04/01 Comp Metabolic Lfr587 BUN 21 mg/dL 04/01/2018 Comp Metabolic Ltd713 B/ C Ratio 19.4 Ratio 04/01/2018 Comp Metabolic Gyr653 CA LCIUM 9.1 mg/dL 04/01/2018 Comp Metabolic Eka527 AL K PHOS 60 U/L 04/01/2018 Comp Metabolic Xhn840 T(SGOT) 15 U/L 04/01/2018 Comp Metabolic Atf599 AL T(SGPT) 18 U/L 04/01/2018 Comp Metabolic Sat325 BI LI T 0.4 mg/dL 04/01/2018 Comp Metabolic Wol915 AL BUMIN 4.0 g/dL 04/01/2018 Comp Metabolic Hes781 TP RO 6.5 g/dL 04/01/2018 Comp Metabolic Hjp197 GL OB 2.5 g/dL 04/01/2018 Comp Metabolic Kie314 A/ G Ratio 1.6 Ratio 04/01/2018 Comp Metabolic Hew846 Os mo 280 mOsmo 04/01/2018 Lipid Ord30 [...] 34.3 pg 04/01/2018 Cbc With Differential Ord2 [place]% 6.0 % 04/01/2018 Cbc With Differential Ord2 [...] 3.25 K/ul 04/01/2018 Cbc With Differential Ord2 [place] ABS# 0.6 K/ul 04/01/2018 Cbc With Differential Ord2 Eos ABS# 0.4 K/ul 04/01/2018 Cbc With Differential Ord2 Baso ABS# 0.0 K/ul 04/01/2018 %Hba1C Dxb301 % HbA1c 11304-7 8.0 % 04/01/2018 %Hba1C Lpg956 Gluc Ave 183 mg/dL 04/01/2018 Testosterone Urq136 Testo 111.3 ng/dL 04/01/2018 Testosterone Fzg813 Testo 135.4 ng/dL 01/14/2018 Cbc With Differential [...] 36.0 pg 01/14/2018 Cbc With Differential Ord2 [place]% 6.8 % 01/14/2018 Cbc With Differential Ord2 [...] 2.71 K/ul 01/14/2018 Cbc With Differential Ord2 [place] ABS# 0.8 K/ul 01/14/2018 Cbc With Differential Ord2 Eos ABS# 0.2 K/ul 01/14/2018 Cbc With Differential Ord2 Baso ABS# 0.0 K/ul 01/14/2018 Comp Metabolic Vub883 NA 134 mEq/L 11/20/2017 Comp Metabolic Vly926 K 4.4 mEq/L 11/20/2017 Comp Metabolic Xvy366 CL 99 mEq/L 11/20/2017 Comp Metabolic Yqy700 CO2 29.0 mEq/L 11/20/2017 Comp Metabolic Cze087 AN ION GAP 10 11/20/2017 Comp Metabolic Jwi094 GL UCOSE 218 mg/dL 11/20/2017 Comp Metabolic Kax607 Cr eat 1.0 mg/dL 11/20/2017 Comp Metabolic Ghi040 eG FR 78 ml/min/1.73m2 11/20 Comp Metabolic Pul297 BUN 13 mg/dL 11/20/2017 Comp Metabolic Ifb002 B/ C Ratio 13.3 Ratio 11/20/2017 Comp Metabolic Oge266 CA LCIUM 9.0 mg/dL 11/20/2017 Comp Metabolic Zlb877 AL K PHOS 71 U/L 11/20/2017 Comp Metabolic Nwh446 T(SGOT) 18 U/L 11/20/2017 Comp Metabolic Zum095 AL T(SGPT) 17 U/L 11/20/2017 Comp Metabolic Sny466 BI LI T 0.4 mg/dL 11/20/2017 Comp Metabolic Zgq072 AL BUMIN 4.1 g/dL 11/20/2017 Comp Metabolic Xqw033 TP RO 6.5 g/dL 11/20/2017 Comp Metabolic Hxx294 GL OB 2.4 g/dL 11/20/2017 Comp Metabolic Jsq487 A/ G Ratio 1.8 Ratio 11/20/2017 Comp Metabolic Awl454 Os mo 275 mOsmo 11/20/2017 Cbc With [...] 35.2 pg 11/20/2017 Cbc With Differential Ord2 [place]% 7.2 % 11/20/2017 Cbc With Differential Ord2 [...] 3.34 K/ul 11/20/2017 Cbc With Differential Ord2 [place] ABS# 0.6 K/ul 11/20/2017 Cbc With Differential Ord2 Eos ABS# 0.3 K/ul 11/20/2017 Cbc With Differential Ord2 Baso ABS# 0.0 K/ul 11/20/2017 Vitamin D 25 Oh Gfj9716 VITAMIN D, 25 HYDROXY 43.72 ng/mL 11/20/2017 %Hba1C Stv648 % HbA1c 05712-8 7.4 % 11/20/2017 %Hba1C Ido422 Gluc Ave 166 mg/dL 11/20/2017 %Hba1C Sdd804 % HbA1c 91357-5 7.2 % 08/20/2017 %Hba1C Mjh118 Gluc Ave 160 mg/dL 08/20/2017 Lipid Ord30 [...] 34.7 pg 08/20/2017 Cbc With Differential Ord2 [place]% 7.6 % 08/20/2017 Cbc With Differential Ord2 [...] 2.42 K/ul 08/20/2017 Cbc With Differential Ord2 [place] ABS# 0.6 K/ul 08/20/2017 Cbc With Differential Ord2 Eos ABS# 0.3 K/ul 08/20/2017 Cbc With Differential Ord2 Baso ABS# 0.0 K/ul 08/20/2017 Tsh Ord6 hTSH II 2.27 uIU/mL 08/20/2017 Comp Metabolic Zau939 NA 138 mEq/L 08/20/2017 Comp Metabolic Hya732 K 4.3 mEq/L 08/20/2017 Comp Metabolic Nox037 CL 102 mEq/L 08/20/2017 Comp Metabolic Iej046 CO2 29.0 mEq/L 08/20/2017 Comp Metabolic Nck229 AN ION GAP 11 08/20/2017 Comp Metabolic Fpe129 GL UCOSE 89 mg/dL 08/20/2017 Comp Metabolic Lfg417 Cr eat 1.0 mg/dL 08/20/2017 Comp Metabolic Xkm750 eG FR 80 ml/min/1.73m2 08/20 Comp Metabolic Zrx386 BUN 13 mg/dL 08/20/2017 Comp Metabolic Tho186 B/ C Ratio 13.5 Ratio 08/20/2017 Comp Metabolic Xxc496 CA LCIUM 9.2 mg/dL 08/20/2017 Comp Metabolic Ecr781 AL K PHOS 69 U/L 08/20/2017 Comp Metabolic Krw375 T(SGOT) 18 U/L 08/20/2017 Comp Metabolic Alh873 AL T(SGPT) 19 U/L 08/20/2017 Comp Metabolic Yjx062 BI LI T 0.6 mg/dL 08/20/2017 Comp Metabolic Uho873 AL BUMIN 4.0 g/dL 08/20/2017 Comp Metabolic Xsm807 TP RO 6.6 g/dL 08/20/2017 Comp Metabolic Qfm074 GL OB 2.6 g/dL 08/20/2017 Comp Metabolic Avb919 A/ G Ratio 1.5 Ratio 08/20/2017 Comp Metabolic Qrs628 Os mo 275 mOsmo 08/20/2017 Vitamin D 25 Oh Cnl7331 VITAMIN D, 25 HYDROXY 30.96 ng/mL 08/20/2017 B12 Emf838 B12 >1500.00 pg/ml 02/22/2017 Cbc With Differential [...] 35.7 pg 02/20/2017 Cbc With Differential Ord2 [place]% 6.3 % 02/20/2017 Cbc With Differential Ord2 [...] 3.19 K/ul 02/20/2017 Cbc With Differential Ord2 [place] ABS# 0.5 K/ul 02/20/2017 Cbc With Differential Ord2 Eos ABS# 0.4 K/ul 02/20/2017 Cbc With Differential Ord2 Baso ABS# 0.0 K/ul 02/20/2017 Comp Metabolic Vuk513 NA 138 mEq/L 02/20/2017 Comp Metabolic Man700 K 4.5 mEq/L 02/20/2017 Comp Metabolic Wlt895 CL 101 mEq/L 02/20/2017 Comp Metabolic Fks949 CO2 31.0 mEq/L 02/20/2017 Comp Metabolic Ekt313 AN ION GAP 11 02/20/2017 Comp Metabolic Ruj953 GL UCOSE 120 mg/dL 02/20/2017 Comp Metabolic Yaz468 Cr eat 0.9 mg/dL 02/20/2017 Comp Metabolic Yyq254 eG FR 83 ml/min/1.73m2 02/20 Comp Metabolic Soe322 BUN 15 mg/dL 02/20/2017 Comp Metabolic Evu221 B/ C Ratio 16.1 Ratio 02/20/2017 Comp Metabolic Xoa169 CA LCIUM 9.1 mg/dL 02/20/2017 Comp Metabolic Ygp395 AL K PHOS 67 U/L 02/20/2017 Comp Metabolic Vey883 T(SGOT) 15 U/L 02/20/2017 Comp Metabolic Qls093 AL T(SGPT) 16 U/L 02/20/2017 Comp Metabolic Ajf668 BI LI T 0.5 mg/dL 02/20/2017 Comp Metabolic Yfg484 AL BUMIN 4.0 g/dL 02/20/2017 Comp Metabolic Sco258 TP RO 6.4 g/dL 02/20/2017 Comp Metabolic Ohk043 GL OB 2.4 g/dL 02/20/2017 Comp Metabolic Dfw566 A/ G Ratio 1.7 Ratio 02/20/2017 Comp Metabolic Tkn779 Os mo 278 mOsmo 02/20/2017 Tsh Ord6 hTSH II 2.05 uIU/mL 02/20/2017 %Hba1C Exh268 % HbA1c 04523-0 7.6 % 02/20/2017 %Hba1C Pxe785 Gluc Ave 171 mg/dL 02/20/2017 Vitamin D 25 Oh Smh8579 VITAMIN D, 25 HYDROXY 44.40 ng/mL 12/21/2016 Comp Metabolic Bzt117 NA 131 mEq/L 12/21/2016 Comp Metabolic Ssc221 K 4.2 mEq/L 12/21/2016 Comp Metabolic Iwa872 CL 97 mEq/L 12/21/2016 Comp Metabolic Lks646 CO2 27.0 mEq/L 12/21/2016 Comp Metabolic Chw683 AN ION GAP 11 12/21/2016 Comp Metabolic Gul161 GL UCOSE 266 mg/dL 12/21/2016 Comp Metabolic Osv062 Cr eat 0.9 mg/dL 12/21/2016 Comp Metabolic Yyy594 eG FR 88 ml/min/1.73m2 12/21 Comp Metabolic Bbc049 BUN 12 mg/dL 12/21/2016 Comp Metabolic Hsr852 B/ C Ratio 13.6 Ratio 12/21/2016 Comp Metabolic Xsj457 CA LCIUM 8.6 mg/dL 12/21/2016 Comp Metabolic Hov692 AL K PHOS 69 U/L 12/21/2016 Comp Metabolic Cds055 T(SGOT) 15 U/L 12/21/2016 Comp Metabolic Jfy569 AL T(SGPT) 14 U/L 12/21/2016 Comp Metabolic Qle673 BI LI T 0.3 mg/dL 12/21/2016 Comp Metabolic Bav213 AL BUMIN 3.7 g/dL 12/21/2016 Comp Metabolic Ctj397 TP RO 5.9 g/dL 12/21/2016 Comp Metabolic Nue159 GL OB 2.2 g/dL 12/21/2016 Comp Metabolic Dqc657 A/ G Ratio 1.7 Ratio 12/21/2016 Comp Metabolic Akq820 Os mo 272 mOsmo 12/21/2016 Cbc With [...] 34.6 pg 12/21/2016 Cbc With Differential Ord2 [place]% 6.9 % 12/21/2016 Cbc With Differential Ord2 [...] 2.05 K/ul 12/21/2016 Cbc With Differential Ord2 [place] ABS# 0.4 K/ul 12/21/2016 Cbc With Differential Ord2 Eos ABS# 0.2 K/ul 12/21/2016 Cbc With Differential Ord2 Baso ABS# 0.0 K/ul 12/21/2016 Comp Metabolic Eay929 NA 138 mEq/L 09/03/2016 Comp Metabolic Bfb986 K 4.5 mEq/L 09/03/2016 Comp Metabolic Bbw498 CL 102 mEq/L 09/03/2016 Comp Metabolic Snk811 CO2 30.0 mEq/L 09/03/2016 Comp Metabolic Wrt476 AN ION GAP 11 09/03/2016 Comp Metabolic Gsm015 GL UCOSE 113 mg/dL 09/03/2016 Comp Metabolic Aej379 Cr eat 1.0 mg/dL 09/03/2016 Comp Metabolic Yhj388 eG FR 81 ml/min/1.73m2 09/03 Comp Metabolic Mmz858 BUN 10 mg/dL 09/03/2016 Comp Metabolic Ddg060 B/ C Ratio 10.5 Ratio 09/03/2016 Comp Metabolic Clb973 CA LCIUM 9.1 mg/dL 09/03/2016 Comp Metabolic Oxo317 AL K PHOS 71 U/L 09/03/2016 Comp Metabolic Ksa392 T(SGOT) 18 U/L 09/03/2016 Comp Metabolic Qsq252 AL T(SGPT) 17 U/L 09/03/2016 Comp Metabolic Uon546 BI LI T 0.6 mg/dL 09/03/2016 Comp Metabolic Nju549 AL BUMIN 4.1 g/dL 09/03/2016 Comp Metabolic Zyw747 TP RO 6.4 g/dL 09/03/2016 Comp Metabolic Lmo951 GL OB 2.3 g/dL 09/03/2016 Comp Metabolic Ogw038 A/ G Ratio 1.8 Ratio 09/03/2016 Comp Metabolic Ptr230 Os mo 276 mOsmo 09/03/2016 Vitamin D 25 Oh Opu2350 VITAMIN D, 25 HYDROXY 28.23 ng/mL 09/03/2016 [...] 34.4 pg 09/03/2016 Cbc With Differential Ord2 [place]% 8.9 % 09/03/2016 Cbc With Differential Ord2 [...] 3.34 K/ul 09/03/2016 Cbc With Differential Ord2 [place] ABS# 0.7 K/ul 09/03/2016 Cbc With Differential Ord2 Eos ABS# 0.4 K/ul 09/03/2016 Cbc With Differential Ord2 Baso ABS# 0.0 K/ul 09/03/2016 Lipid Ord30 CHOL 120 mg/dL 09/03/2016 Lipid Ord30 HDL 33.0 mg/dl 09/03/2016 Lipid Ord30 TRIG 161 mg/dL 09/03/2016 Lipid Ord30 LDL 55 mg/dL 09/03/2016 Lipid Ord30 C/HDL 3.6 Ratio 09/03/2016 %Hba1C Tid823 % HbA1c 57400-1 7.5 % 09/03/2016 %Hba1C Ueb269 Gluc Ave 169 mg/dL 09/03/2016 Tsh Ord6 hTSH II 1.50 uIU/mL 05/23/2016 %Hba1C Bjl594 % HbA1c 68739-0 7.6 % 05/23/2016 %Hba1C Eet652 Gluc Ave 171 mg/dL 05/23/2016 Comp Metabolic Jon525 NA 135 mEq/L 05/23/2016 Comp Metabolic Trf947 K 4.4 mEq/L 05/23/2016 Comp Metabolic Nms299 CL 99 mEq/L 05/23/2016 Comp Metabolic Unc398 CO2 28.0 mEq/L 05/23/2016 Comp Metabolic Knj668 AN ION GAP 12 05/23/2016 Comp Metabolic Gku713 GL UCOSE 257 mg/dL 05/23/2016 Comp Metabolic Hzr778 Cr eat 0.8 mg/dL 05/23/2016 Comp Metabolic Eqc763 eG FR 95 ml/min/1.73m2 05/23 Comp Metabolic Unf315 BUN 11 mg/dL 05/23/2016 Comp Metabolic Amd776 B/ C Ratio 13.3 Ratio 05/23/2016 Comp Metabolic Sip922 CA LCIUM 9.0 mg/dL 05/23/2016 Comp Metabolic Tds806 AL K PHOS 82 U/L 05/23/2016 Comp Metabolic Mxh382 T(SGOT) 21 U/L 05/23/2016 Comp Metabolic Tjj937 AL T(SGPT) 20 U/L 05/23/2016 Comp Metabolic Cgi025 BI LI T 0.3 mg/dL 05/23/2016 Comp Metabolic Hip431 AL BUMIN 4.0 g/dL 05/23/2016 Comp Metabolic Pfl948 TP RO 6.4 g/dL 05/23/2016 Comp Metabolic Ibc503 GL OB 2.4 g/dL 05/23/2016 Comp Metabolic Whm858 A/ G Ratio 1.6 Ratio 05/23/2016 Comp Metabolic Lda016 Os mo 278 mOsmo 05/23/2016 Cbc With [...] 34.5 pg 05/23/2016 Cbc With Differential Ord2 [place]% 6.1 % 05/23/2016 Cbc With Differential Ord2 [...] 2.38 K/ul 05/23/2016 Cbc With Differential Ord2 [place] ABS# 0.4 K/ul 05/23/2016 Cbc With Differential Ord2 Eos ABS# 0.2 K/ul 05/23/2016 Cbc With Differential Ord2 Baso ABS# 0.0 K/ul 05/23/2016 B12 Rij663 B12 597.00 pg/ml 05/23/2016 Metabolic Ord15 NA [...] 0.92 uIU/mL 07/29/2015 Vitamin D 25 Oh Yor8045 VITAMIN D, 25 HYDROXY 26.93 ng/mL 07/29/2015 %Hba1C Jsa919 % HbA1c 06820-7 8.8 % 07/29/2015 %Hba1C Ksn170 Gluc Ave 206 mg/dL 07/29/2015 Cbc With [...] Ord2 RDW 14.9 % 07/29/2015 Comp Metabolic Qps501 NA 138 mEq/L 07/29/2015 Comp Metabolic Bme334 K 4.4 mEq/L 07/29/2015 Comp Metabolic Twp285 CL 102 mEq/L 07/29/2015 Comp Metabolic Hxg355 CO2 28.0 mEq/L 07/29/2015 Comp Metabolic Zix875 AN ION GAP 12 07/29/2015 Comp Metabolic Zut690 GL UCOSE 261 mg/dL 07/29/2015 Comp Metabolic Ids137 Cr eat 1.0 mg/dL 07/29/2015 Comp Metabolic Fif277 eG FR 77 ml/min/1.73m2 07/29 Comp Metabolic Kzl153 BUN 13 mg/dL 07/29/2015 Comp Metabolic Ahy126 B/ C Ratio 13.0 Ratio 07/29/2015 Comp Metabolic Fbx093 CA LCIUM 9.1 mg/dL 07/29/2015 Comp Metabolic Tfe708 AL K PHOS 64 U/L 07/29/2015 Comp Metabolic Yen071 T(SGOT) 20 U/L 07/29/2015 Comp Metabolic Ati884 AL T(SGPT) 22 U/L 07/29/2015 Comp Metabolic Iao314 BI LI T 0.4 mg/dL 07/29/2015 Comp Metabolic Trf106 AL BUMIN 4.0 g/dL 07/29/2015 Comp Metabolic Etj202 TP RO 6.1 g/dL 07/29/2015 Comp Metabolic Nip899 GL OB 2.1 g/dL 07/29/2015 Comp Metabolic Ohx955 A/ G Ratio 1.9 Ratio 07/29/2015 Comp Metabolic Ebh449 Os mo 285 mOsmo 07/29/2015 Cbc With [...] Ord2 RDW 13.1 % 05/06/2015 Comp Metabolic Rmz591 NA 134 mEq/L 05/06/2015 Comp Metabolic Gos050 K 4.4 mEq/L 05/06/2015 Comp Metabolic Qdw752 CL 98 mEq/L 05/06/2015 Comp Metabolic Jmy883 CO2 29.0 mEq/L 05/06/2015 Comp Metabolic Huz752 AN ION GAP 11 05/06/2015 Comp Metabolic Sai756 GL UCOSE 321 mg/dL 05/06/2015 Comp Metabolic Wli658 Cr eat 1.0 mg/dL 05/06/2015 Comp Metabolic Ubt947 eG FR 78 ml/min/1.73m2 05/06 Comp Metabolic Qro183 BUN 20 mg/dL 05/06/2015 Comp Metabolic Toe049 B/ C Ratio 20.4 Ratio 05/06/2015 Comp Metabolic Yei133 CA LCIUM 9.5 mg/dL 05/06/2015 Comp Metabolic Hoq464 AL K PHOS 62 U/L 05/06/2015 Comp Metabolic Sid589 T(SGOT) 21 U/L 05/06/2015 Comp Metabolic Qhp444 AL T(SGPT) 37 U/L 05/06/2015 Comp Metabolic Akv489 BI LI T 0.4 mg/dL 05/06/2015 Comp Metabolic Zqf327 AL BUMIN 3.8 g/dL 05/06/2015 Comp Metabolic Ted527 TP RO 6.1 g/dL 05/06/2015 Comp Metabolic Yxm998 GL OB 2.3 g/dL 05/06/2015 Comp Metabolic Doo098 A/ G Ratio 1.7 Ratio 05/06/2015 Comp Metabolic Emr907 Os mo 283 mOsmo 05/06/2015 Tsh Ord6 hTSH II 1.65 uIU/mL 02/18/2015 B12 Kix645 B12 605.00 pg/ml 02/18/2015 %Hba1C Atd910 % HbA1c 46593-6 8.3 % 02/18/2015 %Hba1C Ljm101 Gluc Ave 192 mg/dL 02/18/2015 Cbc With [...] Ord2 RDW 13.9 % 02/17/2015 Comp Metabolic Fmk458 NA 137 mEq/L 02/17/2015 Comp Metabolic Snp265 K 4.4 mEq/L 02/17/2015 Comp Metabolic Gsm708 CL 100 mEq/L 02/17/2015 Comp Metabolic Qct934 CO2 31.0 mEq/L 02/17/2015 Comp Metabolic Gtr819 AN ION GAP 10 02/17/2015 Comp Metabolic Sqe737 GL UCOSE 307 mg/dL 02/17/2015 Comp Metabolic Zct141 Cr eat 1.0 mg/dL 02/17/2015 Comp Metabolic Cjg101 eG FR 74 ml/min/1.73m2 02/17 Comp Metabolic Kzb908 BUN 22 mg/dL 02/17/2015 Comp Metabolic Fvb036 B/ C Ratio 21.4 Ratio 02/17/2015 Comp Metabolic Hni008 CA LCIUM 9.5 mg/dL 02/17/2015 Comp Metabolic Yzd487 AL K PHOS 78 U/L 02/17/2015 Comp Metabolic Qol968 T(SGOT) 18 U/L 02/17/2015 Comp Metabolic Wfz757 AL T(SGPT) 32 U/L 02/17/2015 Comp Metabolic Ome143 BI LI T 0.5 mg/dL 02/17/2015 Comp Metabolic Fpy221 AL BUMIN 4.3 g/dL 02/17/2015 Comp Metabolic Tnv975 TP RO 6.7 g/dL 02/17/2015 Comp Metabolic Zds073 GL OB 2.4 g/dL 02/17/2015 Comp Metabolic Ibu318 A/ G Ratio 1.8 Ratio 02/17/2015 Comp Metabolic Nli446 Os mo 289 mOsmo 02/17/2015 Review of [...] smoking 02/17/2015 Respiratory cough 2014 Respiratory dyspnea 070 04/2015 Genitourinary/Nephrology No dysuria 02/17/2015 Genitourinary/Nephrology No [...] sounds 10/17/2018 None Full Exam - General 1995 Lymphatic [...] inspection of skin Location: face 03/07/2015 on judaism, cheeks,actinic keratosis with irritation on left cheek - left judaism - croptherapy on these two lesions - [...] Procedure Codes Date THER/PROPH/DIAG INJ SC/IM CPT-4: 84728 03/04/2019 THER/PROPH/DIAG INJ SC/IM CPT-4: 63924 02/16/2019 THER/PROPH/DIAG INJ SC/IM CPT-4: 69403 01/30/2019 THER/PROPH/DIAG INJ SC/IM CPT-4: 18431 01/16/2019 THER/PROPH/DIAG INJ SC/IM CPT-4: 32969 01/01/2019 THER/PROPH/DIAG INJ SC/IM CPT-4: 65032 12/17/2018 THER/PROPH/DIAG INJ SC/IM CPT-4: 16600 12/02/2018 THER/PROPH/DIAG INJ SC/IM CPT-4: 16632 11/18/2018 THER/PROPH/DIAG INJ SC/IM CPT-4: 27107 11/04/2018 THER/PROPH/DIAG INJ SC/IM CPT-4: 86391 10/14/2018 THER/PROPH/DIAG INJ SC/IM CPT-4: 85154 10/03/2018 THER/PROPH/DIAG INJ SC/IM CPT-4: 19823 09/23/2018 THER/PROPH/DIAG INJ SC/IM CPT-4: 22682 09/02/2018 THER/PROPH/DIAG INJ SC/IM CPT-4: 15470 08/21/2018 THER/PROPH/DIAG INJ SC/IM CPT-4: 35008 08/08/2018 THER/PROPH/DIAG INJ SC/IM CPT-4: 15288 07/28/2018 THER/PROPH/DIAG INJ SC/IM CPT-4: 03026 07/16/2018 THER/PROPH/DIAG INJ SC/IM CPT-4: 88999 07/02/2018 PPPS, SUBSEQ VISIT CPT- 4: G0439 06/30/2018 THER/PROPH/DIAG INJ SC/IM CPT-4: 28215 06/24/2018 THER/PROPH/DIAG INJ SC/IM CPT-4: 19509 06/13/2018 ADMIN INFLUENZA VIRU S VAC CPT-4: G0008 06/06/2018 FLU VACC PRSV FREE I NC ANTIG CPT-4: 44109 06/06/2018 THER/PROPH/DIAG INJ SC/IM CPT-4: 88425 06/05/2018 THER/PROPH/DIAG INJ SC/IM CPT-4: 25787 05/30/2018 THER/PROPH/DIAG INJ SC/IM CPT-4: 91394 05/22/2018 THER/PROPH/DIAG INJ SC/IM CPT-4: 06211 05/12/2018 THER/PROPH/DIAG INJ SC/IM CPT-4: 38780 05/02/2018 THER/PROPH/DIAG INJ SC/IM CPT-4: 58979 04/24/2018 THER/PROPH/DIAG INJ SC/IM CPT-4: 45202 04/17/2018 KETOROLAC TROMETHAMI NE INJ CPT-4: J1885 03/07/2018 URINALYSIS NONAUTO W /O SCOPE CPT-4: 98679 03/07/2018 THER/PROPH/DIAG INJ SC/IM CPT-4: 08293 02/20/2018 TRIAMCINOLONE ACET I [place] NOS CPT-4: J3301 01/30/2018 THER/PROPH/DIAG INJ SC/IM CPT-4: 29027 01/17/2018 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-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 3-[address]: [id number] CPT-4: G0436 04/25/2017 ADMIN INFLUENZA VIRU S VAC CPT-4: G0008 04/25/2017 ADMIN PNEUMOCOCCAL V ACCINE SNOMED CT: 34120512 CPT-4: G0009 04/25/2017 PNEUMOCOCCAL VACC [address]: 54969107 CPT-4: 12902 04/25/2017 FLU VACC PRSV FREE I NC ANTIG CPT-4: 78892 04/25/2017 ADMIN INFLUENZA VIRU S VAC CPT-4: G0008 05/22/2016 FLU VACC 4 TELLY 3 YRS PLUS IM Formatting Model/CDA Sections, Assigned to/Angela Clemons SNOMED CT: 88255097 CPT-4: 59419Owwztzt 05/22/2016 TOBACCO-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 3-[address]: [id number] CPT-4: G0436 11/25/2015 URINALYSIS NONAUTO W /O SCOPE CPT-4: 46586 05/09/2015 TRIAMCINOLONE ACET I [place] NOS CPT-4: J3301 04/12/2015 DESTRUCT PREMALG LESION CPT-4: 06431 03/07/2015 DESTRUCT PREMALG LES 2-14 CPT-4: 39138 03/07/2015 REMOVE IMPACTED EAR WAX UNI CPT-4: 55192 12/31/2014 THER/PROPH/DIAG INJ SC/IM CPT-4: 58013 12/23/2014 TRIAMCINOLONE ACET I [place] NOS CPT-4: J3301 12/23/2014 Vital Signs Date Vital 03/03/2019 Blood Pressure 1: 150/72 Code: 8480-6 BMI: 20.6 Code: 03747-1 Heart Rate 1: 63 bpm Height: 5'11" SpO2: 100% Weight: 147 lbs 8 oz 12/02/2018 Blood Pressure 1: 140/70 Code: 8480-6 BMI: 21.9 Code: 28725-2 Heart Rate 1: 61 bpm Height: 5'11" SpO2: 94% Weight: 157 lbs 10/17/2018 Blood Pressure 1: 124/54 Code: 8480-6 BMI: 21.9 Code: 61203-2 Heart Rate 1: 64 bpm Height: 5'11" SpO2: 93% Weight: 157 lbs 09/02/2018 Blood Pressure 1: 140/80 Code: 8480-6 BMI: 21.2 Code: 15791-4 Heart Rate 1: 68 bpm Height: 5'11" SpO2: 97% Weight: 152 lbs 06/30/2018 BMI: 21.8 Code: 64425-1 Height: 5'11" Weight: 156 lbs 06/06/2018 Blood Pressure 1: 128/76 Code: 8480-6 BMI: 22.0 Code: 28090-9 Heart Rate 1: 81 bpm Height: 5'11" SpO2: 92% Weight: 158 lbs 04/04/2018 Blood Pressure 1: 124/70 Code: 8480-6 BMI: 20.8 Code: 87317-6 Heart Rate 1: 65 bpm Height: 5'11" SpO2: 95% Weight: 149 lbs 03/07/2018 Blood Pressure 1: 148/70 Code: 8480-6 BMI: 21.2 Code: 06296-4 Heart Rate 1: 66 bpm Height: 5'11" SpO2: 94% Weight: 152 lbs 02/20/2018 Blood Pressure 1: 134/58 Code: 8480-6 BMI: 20.5 Code: 58235-4 Heart Rate 1: 61 bpm Height: 5'11" SpO2: 92% Weight: 147 lbs 01/30/2018 Blood Pressure 1: 158/68 Code: 8480-6 BMI: 21.5 Code: 33841-9 Heart Rate 1: 71 bpm Height: 5'11" SpO2: 92% Weight: 154 lbs 01/14/2018 Blood Pressure 1: 156/70 Code: 8480-6 Height: Weight: 01/13/2018 Blood Pressure 1: 148/62 Code: 8480-6 BMI: 20.9 Code: 37737-5 Heart Rate 1: 54 bpm Height: 5'11" SpO2: 97% Weight: 150 lbs 11/19/2017 Blood Pressure 1: 150/60 Code: 8480-6 BMI: 21.8 Code: 25895-9 Heart Rate 1: 63 bpm Height: 5'11" SpO2: 98% Weight: 156 lbs 10/02/2017 Blood Pressure 1: 168/60 Code: 8480-6 BMI: 21.9 Code: 17622-6 Heart Rate 1: 52 bpm Height: 5'11" SpO2: 97% Weight: 157 lbs 07/23/2017 Blood Pressure 1: 170/70 Code: 8480-6 BMI: 21.8 Code: 18625-2 Heart Rate 1: 65 bpm Height: 5'11" SpO2: 98% Weight: 156 lbs 04/25/2017 Blood Pressure 1: 138/60 Code: 8480-6 BMI: 21.6 Code: 57038-5 Heart Rate 1: 55 bpm Height: 5'11" SpO2: 93% Weight: 155 lbs 02/19/2017 Blood Pressure 1: 138/64 Code: 8480-6 BMI: 21.3 Code: 26718-7 Heart Rate 1: 52 bpm Height: 5'11" SpO2: 96% Weight: 152 lbs 8 oz 01/21/2017 Blood Pressure 1: 160/68 Code: 8480-6 BMI: 21.3 Code: 37412-4 Heart Rate 1: 62 bpm Height: 5'11" SpO2: 96% Weight: 153 lbs 12/20/2016 Blood Pressure 1: 124/66 Code: 8480-6 BMI: 21.5 Code: 16329-4 Height: 5'11" Weight: 154 lbs 08/23/2016 Blood Pressure 1: 142/52 Code: 8480-6 BMI: 21.2 Code: 24202-2 Heart Rate 1: 54 bpm Height: 5'11" SpO2: 96% Weight: 152 lbs 05/22/2016 Blood Pressure 1: 130/76 Code: 8480-6 BMI: 21.5 Code: 60598-6 Heart Rate 1: 78 bpm Height: 5'11" SpO2: 92% Weight: 154 lbs 02/24/2016 Blood Pressure 1: 128/80 Code: 8480-6 BMI: 21.2 Code: 80030-4 Heart Rate 1: 74 bpm Height: 5'11" SpO2: 96% Weight: 152 lbs 01/27/2016 Blood Pressure 1: 144/60 Code: 8480-6 BMI: 21.2 Code: 82833-6 Heart Rate 1: 74 bpm Height: 5'11" SpO2: 97% Weight: 152 lbs 11/25/2015 Blood Pressure 1: 110/52 Code: 8480-6 BMI: 21.9 Code: 57399-7 Heart Rate 1: 65 bpm Height: 5'11" SpO2: 92% Weight: 157 lbs 07/28/2015 Blood Pressure 1: 138/62 Code: 8480-6 BMI: 21.8 Code: 00841-5 Heart Rate 1: 63 bpm Height: 5'11" SpO2: 91% Weight: 156 lbs 05/26/2015 Blood Pressure 1: 120/58 Code: 8480-6 BMI: 21.5 Code: 30332-9 Heart Rate 1: 99 bpm Height: 5'11" SpO2: 96% Weight: 154 lbs 05/06/2015 Blood Pressure 1: 120/58 Code: 8480-6 BMI: 21.2 Code: 08267-9 Heart Rate 1: 66 bpm Height: 5'11" SpO2: 96% Weight: 152 lbs 04/25/2015 Blood Pressure 1: 136/62 Code: 8480-6 BMI: 21.2 Code: 87323-5 Heart Rate 1: 63 bpm Height: 5'11" SpO2: 97% Weight: 152 lbs 04/12/2015 Blood Pressure 1: 160/58 Code: 8480-6 BMI: 21.6 Code: 11735-8 Heart Rate 1: 62 bpm Height: 5'11" Weight: 155 lbs 03/24/2015 Blood Pressure 1: 138/68 Code: 8480-6 BMI: 22.0 Code: 19860-4 Heart Rate 1: 65 bpm Height: 5'11" SpO2: 96% Weight: 158 lbs 03/07/2015 Blood Pressure 1: 116/52 Code: 8480-6 BMI: 22.2 Code: 40207-3 Heart Rate 1: 64 bpm Height: 5'11" SpO2: 97% Weight: 159 lbs 02/17/2015 Blood Pressure 1: 148/58 Code: 8480-6 BMI: 21.3 Code: 70757-5 Heart Rate 1: 63 bpm Height: 5'11" SpO2: 97% Weight: 153 lbs 12/31/2014 Blood Pressure 1: 100/60 Code: 8480-6 BMI: 21.8 Code: 31132-7 Heart Rate 1: 68 bpm Height: 5'11" Weight: 156 lbs 12/23/2014 Blood Pressure 1: 148/64 Code: 8480-6 BMI: 21.9 Code: 93127-8 Heart Rate 1: 64 bpm Height: 5'11" [...] Quality chr onic 04/04/2018 None hypertension Quality agnely leach hypertension 04/04/2018 None hypertension Onset and [...] Encounters Encounter Performer Loca tion Codes Date ([id number]) 69744 EST. P ATIENT, LEVEL IV Diagnosis: Chronic obstructive pulmonary disease, unspecified[ICD10: J44.9] Diagnosis: Mixed hyperlipidemia[ICD10: E78.2] Diagnosis: Type 2 diabetes mellitus with hyperglycemia[ICD10: E11.65] Diagnosis: Testicular dysfunction, unspecified[ICD10: E29.9] Diagnosis: Abnormal weight loss[ICD10: R63.4] Karmen Ash MD, [facility] CPT-4: 60833 03/03/2019 ([id number]) 93686 EST. P ATIENT, LEVEL IV Diagnosis: Chronic obstructive pulmonary disease, unspecified[ICD10: J44.9] Diagnosis: Type 2 diabetes mellitus with hyperglycemia[ICD10: E11.65] Diagnosis: Testicular dysfunction, unspecified[ICD10: E29.9] Diagnosis: Other insomnia[ICD10: G47.09] Karmen Ash MD, [facility] CPT- 4: 50900 12/02/2018 ([id number]) 01011 EST. [facility] Diagnosis: Orthostatic hypotension[ICD10: I95.1] Diagnosis: Low back pain[ICD10: M54.5] Diagnosis: Unsteadiness on feet[ICD10: R26.81] Karmen Ash MD, [facility] CPT-4: 78543 10/17/2018 ([id number]) 83085 EST. P ATIENT, LEVEL IV Diagnosis: Essential (primary) hypertension[ICD10: I10] Diagnosis: Chronic obstructive pulmonary disease, unspecified[ICD10: J44.9] Diagnosis: Type 2 diabetes mellitus with hyperglycemia[ICD10: E11.65] Diagnosis: Vitamin D deficiency, unspecified[ICD10: E55.9] Diagnosis: Mixed hyperlipidemia[ICD10: E78.2] Diagnosis: Testicular dysfunction, unspecified[ICD10: E29.9] Karmen Ash MD, [facility] CPT-4: 77343 09/02/2018 ([id number]) 45173 EST. P ATIENT, LEVEL IV Diagnosis: Cellulitis of face[ICD10: L03.211] Diagnosis: Type 2 diabetes mellitus without complications[ICD10: E11.9] Diagnosis: Essential (primary) hypertension[ICD10: I10] Diagnosis: Encounter for immunization[ICD10: Z23] Karmen Ash MD, [facility] CPT-4: 80214 06/06/2018 ([id number]) 23469 EST. P ATIENT, LEVEL IV Diagnosis: Essential (primary) hypertension[ICD10: I10] Diagnosis: Chronic obstructive pulmonary disease, unspecified[ICD10: J44.9] Diagnosis: Testicular dysfunction, unspecified[ICD10: E29.9] Diagnosis: Type 2 diabetes mellitus with hyperglycemia[ICD10: E11.65] Karmen Ash MD, [facility] CPT-4: 18987 04/04/2018 ([id number]) 54360 EST. P ATIENT, LEVEL III Diagnosis: Low back pain[ICD10: M54.5] Diagnosis: Dysuria[ICD10: R30.0] Karmen Ash MD, [facility] CPT-4: 72191 03/07/2018 ([id number]) 19976 EST. P ATIENT, LEVEL IV Diagnosis: Essential (primary) hypertension[ICD10: I10] Diagnosis: Chronic obstructive pulmonary disease, unspecified[ICD10: J44.9] Diagnosis: Abnormal weight loss[ICD10: R63.4] Diagnosis: Low back pain[ICD10: M54.5] Diagnosis: Testicular dysfunction, unspecified[ICD10: E29.9] Diagnosis: Type 2 diabetes mellitus with hyperglycemia[ICD10: E11.65] Karmen Ash MD, [facility] CPT-4: 04557 02/20/2018 ([id number]) 03890 EST. P ATIENT, LEVEL III Diagnosis: Chronic obstructive pulmonary disease with (acute) exacerbation[ICD10: J44.1] Karmen Ash MD, [facility] CPT-4: 37645 01/30/2018 89635 EST. PATIENT, LEVEL II Diagnosis: Insect bite (nonvenomous), left lower leg, initial encounter[ICD10: S80.862A] Karmen Ash MD, [facility] CPT-4: 22287 01/14/2018 ([id number]) 26761 EST. P ATIENT, LEVEL IV Diagnosis: Type 2 diabetes mellitus with hyperglycemia[ICD10: E11.65] Diagnosis: Chronic obstructive pulmonary disease, unspecified[ICD10: J44.9] Diagnosis: Other fatigue[ICD10: R53.83] Karmen Ash MD, [facility] CPT- 4: 93175 01/13/2018 ([id number]) 57471 EST. P ATIENT, LEVEL IV Diagnosis: Type 2 diabetes mellitus with hyperglycemia[ICD10: E11.65] Diagnosis: Vitamin D deficiency, unspecified[ICD10: E55.9] Diagnosis: Essential (primary) hypertension[ICD10: I10] Diagnosis: Abdominal distension (gaseous)[ICD10: R14.0] Diagnosis: Drug induced constipation[ICD10: K59.03] Karmen Ash MD, [facility] CPT-4: 82026 11/19/2017 11075 EST. PATIENT, LEVEL IV Diagnosis: Low back pain[ICD10: M54.5] Diagnosis: Chronic obstructive pulmonary disease, unspecified[ICD10: J44.9] Brunilda Ash MD, [facility] CPT-4: 54886 10/02/2017 ([id number]) 57448 EST. P ATIENT, LEVEL IV Diagnosis: Essential (primary) hypertension[ICD10: I10] Diagnosis: Type 2 diabetes mellitus with hyperglycemia[ICD10: E11.65] Diagnosis: Vitamin D deficiency, unspecified[ICD10: E55.9] Diagnosis: Mixed hyperlipidemia[ICD10: E78.2] Karmen Ash MD, [facility] CPT-4: 32791 07/23/2017 ([id number]) 85914 EST. P ATIENT, LEVEL IV Diagnosis: Essential (primary) hypertension[ICD10: I10] Diagnosis: Type 2 diabetes mellitus with hyperglycemia[ICD10: E11.65] Diagnosis: Chronic obstructive pulmonary disease, unspecified[ICD10: J44.9] Diagnosis: Nicotine dependence, unspecified, uncomplicated[ICD10: F17.200] Diagnosis: Encounter for immunization[ICD10: Z23] Karmen Ash MD, [facility] CPT-4: 28665 04/25/2017 ([id number]) 87786 EST. P ATIENT, LEVEL IV Diagnosis: Type 2 diabetes mellitus with hyperglycemia[ICD10: E11.65] Diagnosis: Essential (primary) hypertension[ICD10: I10] Diagnosis: Anemia, unspecified[ICD10: D64.9] Karmen Ash MD, [facility] CPT- 4: 94312 02/19/2017 ([id number]) 37184 EST. P ATIENT, LEVEL IV Diagnosis: Slow transit constipation[ICD10: K59.01] Diagnosis: Gastro-esophageal reflux disease without esophagitis[ICD10: K21.9] Diagnosis: Essential (primary) hypertension[ICD10: I10] Karmen Ash MD, [facility] CPT-4: 21615 01/21/2017 ([id number]) 63710 EST. P ATIENT, LEVEL IV Diagnosis: Type 2 diabetes mellitus with hyperglycemia[ICD10: E11.65] Diagnosis: Vitamin D deficiency, unspecified[ICD10: E55.9] Diagnosis: Essential (primary) hypertension[ICD10: I10] Diagnosis: Chronic obstructive pulmonary disease, unspecified[ICD10: J44.9] Karmen Ash MD, [facility] CPT-4: 72248 12/20/2016 ([id number]) 10262 EST. P ATIENT, LEVEL IV Diagnosis: Type 2 diabetes mellitus with hyperglycemia[ICD10: E11.65] Diagnosis: Essential (primary) hypertension[ICD10: I10] Diagnosis: Mixed hyperlipidemia[ICD10: E78.2] Diagnosis: Vitamin D deficiency, unspecified[ICD10: E55.9] Karmen Ash MD, [facility] CPT-4: 20731 08/23/2016 ([id number]) 65612 EST. P ATIENT, LEVEL IV Diagnosis: Type 2 diabetes mellitus with hyperglycemia[ICD10: E11.65] Diagnosis: Essential (primary) hypertension[ICD10: I10] Diagnosis: Chronic obstructive pulmonary disease, unspecified[ICD10: J44.9] Karmen Ash MD, [facility] CPT-4: 75192 05/22/2016 ([id number]) 09966 EST. P ATIENT, LEVEL III Diagnosis: Dysuria[ICD10: R30.0] Diagnosis: Essential (primary) hypertension[ICD10: I10] Karmen Ash MD, [facility] CPT-4: 30065 02/24/2016 ([id number]) 17757 EST. P ATIENT, LEVEL IV Diagnosis: Gastro-esophageal reflux disease without esophagitis[ICD10: K21.9] Diagnosis: Slow transit constipation[ICD10: K59.01] Diagnosis: Type 2 diabetes mellitus with hyperglycemia[ICD10: E11.65] Karmen Ash MD, [facility] CPT-4: 79955 01/27/2016 ([id number]) 67644 EST. P ATIENT, LEVEL IV Diagnosis: Essential (primary) hypertension[ICD10: I10] Diagnosis: Type 2 diabetes mellitus with hyperglycemia[ICD10: E11.65] Diagnosis: Vitamin D deficiency, unspecified[ICD10: E55.9] Diagnosis: Chronic obstructive pulmonary disease, unspecified[ICD10: J44.9] Diagnosis: Mixed hyperlipidemia[ICD10: E78.2] Diagnosis: Tobacco use[ICD10: Z72.0] Karmen Ash MD, [facility] CPT- 4: 71707 11/25/2015 ([id number]) 40915 EST. P ATIENT, LEVEL IV Diagnosis: Type 2 diabetes mellitus with hyperglycemia[ICD10: E11.65] Diagnosis: Essential (primary) hypertension[ICD10: I10] Diagnosis: Vitamin D deficiency, unspecified[ICD10: E55.9] Karmen Ash MD, [facility] CPT-4: 72419 07/28/2015 ([id number]) 71329 EST. P ATIENT, LEVEL III Diagnosis: Type 2 diabetes mellitus with hyperglycemia[ICD10: E11.65] Diagnosis: Essential (primary) hypertension[ICD10: I10] Violeta Ash MD, [facility] CPT-4: 98144 05/26/2015 ([id number]) 49538 EST. P ATIENT, LEVEL III Diagnosis: DIABETES TYPE II[ICD9: 250.00] Diagnosis: COPD (chronic obstructive pulmonary disease)[ICD9: 496] Diagnosis: ESSENTIAL HYPERTENSION[ICD9: 401.9] Diagnosis: Cough[ICD9: 786.2] Violeta Ash MD, [facility] CPT-4: 96802 05/06/2015 ([id number]) 55083 EST. P ATIENT, LEVEL III Diagnosis: COPD (chronic obstructive pulmonary disease)[ICD9: 496] Diagnosis: DIABETES TYPE II[ICD9: 250.00] Diagnosis: Muscle ache[ICD9: 729.1] Karmen Ash MD, [facility] CPT- 4: 91820 04/25/2015 ([id number]) 42147 EST. P ATIENT, LEVEL III Diagnosis: ACTINIC KERATOSIS[ICD9: 702.0] Diagnosis: COPD (chronic obstructive pulmonary disease)[ICD9: 496] Diagnosis: DIABETES TYPE II[ICD9: 250.00] Diagnosis: ACUTE URI[ICD9: 465.9] Violeta Ash MD, [facility] CPT-4: 37638 04/12/2015 ([id number]) 88887 EST. P ATIENT, LEVEL III Diagnosis: DIABETES TYPE II[ICD9: 250.00] Violeta Ash MD, [facility] CPT-4: 20088 03/24/2015 ([id number]) 84811 EST. P ATIENT, LEVEL IV Diagnosis: DIABETES TYPE II[ICD9: 250.00] Diagnosis: Hypoglycemia[ICD9: 251.2] Diagnosis: Skin texture changes[ICD9: 782.8] Violeta Ash MD, [facility] CPT-4: 12963 03/07/2015 ([id number]) 89437 EST. P ATIENT, LEVEL IV Diagnosis: COPD (chronic obstructive pulmonary disease)[ICD9: 496] Diagnosis: Fatigue[ICD9: 780.79] Diagnosis: Insulin dependent diabetes mellitus[ICD9: 250.00] Diagnosis: Unsteady gait[ICD9: 781.2] Maame Ash MD, [facility] CPT-4: 63142 02/17/2015 ([id number]) 67947 EST. P [facility], LEVEL IV Diagnosis: BPPV (benign paroxysmal positional vertigo)[ICD9: 386.11] Diagnosis: Impacted cerumen[ICD9: 380.4] Diagnosis: ESSENTIAL HYPERTENSION[ICD9: 401.9] Diagnosis: Insulin dependent diabetes mellitus[ICD9: 250.00] [facility] CPT-4: 18826 12/23/2014 ([id number]) OFFICE [facility] 4 Diagnosis: Insulin dependent diabetes mellitus[ICD9: 250.00] Diagnosis: BPPV (benign paroxysmal positional vertigo)[ICD9: 386.11] Diagnosis: COPD (chronic obstructive pulmonary disease)[ICD9: 496] Diagnosis: Tobacco abuse[ICD9: 305.1] Diagnosis: Osteoarthritis[ICD9: 715.90] [facility] CPT- 4: 37454 12/09/2014 Plan of Care Planned Activity Notes [...] patient is stable, monitor for acute changes. senior living tobacco use -weight loss-order for chest xray provided DM -rx for CGM -patient is due for labs Low testosterone - check level 03/03/2019 Appointment: Karmen Espinal WPtel[phone] [facility] min[facility] 03/03/2019 Patient Education: Patient Medication Summary Completed [...] directed 12/02/2018 Appointment: Karmen Espinal WPtel: [phone] [phone] (30 min) Complex 12/02/2018 Patient Education: Patient Medication Summary Completed 12/02/2018 Patient Education: Diabetes Completed 12/02/2018 Appointment: Injection 11/18/2018 Patient Education: Patient Medication Summary Completed 11/18/2018 Appointment: Injection 11/04/2018 Patient Education: Patient Medication Summary Completed 11/04/2018 Appointment: Karmen Espinal WPtel: [phone] (30 min) Complex 10/21/2018 Visit Plan: [...] walker 10/17/2018 Appointment: Karmen Espinal WPtel: [phone] [phone] (30 min) Complex 10/17/2018 Patient Education: [...] medications. 09/02/2018 Appointment: [phone] [phone] (15 min) Moderate 09/02/2018 Patient Education: Patient [...] care surrogate. 06/30/2018 Appointment: Karmen Espinal WPtel: [address] [place], [place] [phone] [place] [address] - Annual Wellness Visit 06/30/2018 Patient Education: Patient Medication Summary Completed 06/30/2018 Appointment: Injection 06/24/2018 Patient Education: Patient Medication Summary Completed 06/24/2018 Appointment: Injection 06/13/2018 Patient Education: Patient Medication Summary Completed 06/13/2018 Visit Plan: Diabetes Mellitus - I michael rascon recommended for the patient to have [...] in pain. 06/06/2018 Appointment: Karmen Espinal WPtel: [phone] (15 min) Moderate 06/06/2018 Patient Education: Patient [...] months 04/04/2018 Appointment: [facility] Espinal [facility]el[facility] [phone] [phone] [place] (15 min) Moderate 04/04/2018 Patient Education: Patient Medication Summary Completed 04/04/2018 Care Plan: Cbc With Differential Pending 04/04/2018 Care Plan: Testosterone repeat in 2 months Pending 04/04/2018 Appointment: [facility] Espinal [facility]Ptel[facility] [phone] [phone] [place] (15 min) Moderate 03/25/2018 Visit Plan: Low back pain -history of kidney stone-UA negative today -increase fluids and call if pain does not resolve or if any worse. 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 01/30/2018 Appointment: Karmen Espinal WPtel: [facility] [place] [address] (15 min) Moderate 01/30/2018 Patient Education: Patient Medication Summary Completed 01/30/2018 Appointment: Karmen Espinal WPtel: [phone] (15 min) Moderate 01/28/2018 Appointment: Injection 01/17/2018 Patient Education: Patient Medication Summary Completed 01/17/2018 Visit Plan: Cellulitis - start oral antibiotics as directed, return to clinic as previously directed, call for acute change in symptoms, worsening redness, warmth, discharge. 01/14/2018 Appointment: Karmen Espinal WPtel: [phone] (10 min) Simple 01/14/2018 Patient Education: [...] controlled. 01/13/2018 Appointment: Karmen Espinal WPtel: [phone] [place] [phone] (15 min) Moderate 01/13/2018 Patient Education: Patient Medication Summary Completed 01/13/2018 Referral: Hugo Villatoro HPtel:[phone] Patient's informed. Referral info ned monroy. Completed 12/04/2017 Visit Plan: Diabetes Mellitus - izzy traore - per recent FSBS reports. I have [...] change in blood pressure readings at home. Hzwzvjxe-qcelbu-duzrr to see Dr Villatoro Constipation-start linzess daily 11/19/2017 Appointment: Karmen Espinal WPtel: [facility] [place] [phone] (30 min) Complex 11/19/2017 Patient Education: Patient Medication Summary Completed 11/19/2017 Care Plan: Referral Order bloating, nausea SNOMED-CT : 923294516 Pending 11/19/2017 Visit Plan: Low back pain- [...] acute changes. 10/02/2017 Appointment: Brunilda Maravilla WPtel: [address] [place], [place] [address] (15 min) Moderate 10/02/2017 Patient Education: Patient [...] controlled. 07/23/2017 Appointment: [facility] Espinal [facility]Ptel[facility] [phone] [phone] (30 min) Complex 07/23/2017 Patient Education: Patient [...] history 04/25/2017 Appointment: [facility] Espinal [facility]Ptel[facility] [phone] [phone] (30 min) Complex 04/25/2017 Patient Education: [...] readings are starting to become less controlled. Iwlmpd-tspnsib-vdjik labs 02/19/2017 Appointment: Karmen Espinal WPtel: [phone] (30 min) Complex 02/19/2017 Patient Education: [...] 1 month 01/21/2017 Appointment: Karmen Espinal WPtel: [phone] [place] (30 min) Complex 01/21/2017 Patient Education: Patient Medication Summary Completed 01/21/2017 Patient Education: Smoking and Tobacco Addiction Completed 01/21/2017 Patient Education: Hypertension Completed 01/21/2017 Care Plan: Referral Order SNOMED-CT : 267087710 Pending 01/21/2017 Visit Plan: Diabetes Mellitus - [...] acute changes. 12/20/2016 Appointment: Karmen Espinal WPtel: [phone] (30 min) Complex 12/20/2016 Patient Education: Patient Medication Summary Completed 12/20/2016 Patient Education: Smoking and Tobacco Addiction Completed 12/20/2016 Patient Education: Hypertension Completed 12/20/2016 Appointment: Karmen Espinal WPtel: [phone] [phone] (30 min) Complex 09/06/2016 Visit Plan: [...] d level 08/23/2016 Appointment: Karmen Espinal WPtel: [phone] [phone] (30 min) Complex 08/23/2016 Patient Education: Patient [...] acute changes. 05/22/2016 Appointment: Karmen Espinal WPtel: [phone] (30 min) Complex 05/22/2016 Patient Education: Patient Medication Summary Completed 05/22/2016 Patient Education: Smoking and Tobacco Addiction Completed 05/22/2016 Care Plan: Cbc With Differential Ordered 05/22/2016 Care Plan: %Hba1C LOIN C : 78165-8 Ordered 05/22/2016 Care Plan: Tsh Ordered 05/22/2016 [...] with update 02/24/2016 Appointment: Karmen Espinal WPtel: [phone] [place] (30 min) Complex 02/24/2016 Patient Education: Patient [...] this regimen. 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 Inowvbxn-fabeddtj-VMMF SIMVASTATIN X 2 WEEKS AND CALL WITH [...] Care Plan: COMPLETE CBC AUTOMATED LOINC : 28802-5 Ordered 03/24/2015 Visit Plan: Diabetes Mellitus - [...] for removal. 03/07/2015 Appointment: Violeta Ash WPtel[facility] (15 min) Moderate 03/07/2015 Patient Education: [...] hearing. The wax was removed by the [facility] ctitioner due to the wax being more [...] Care Plan: COMPLETE CBC AUTOMATED LOINC : 63615-8 Ordered 12/23/2014 Visit Plan: BPPV - Benign [...] next appt 12/09/2014 Appointment: Karmen Espinal WPtel: [phone] [phone] [place] ([place]) New Patient 12/09/2014 Patient Education: Patient Medication Summary Completed 12/09/2014 Patient Education: .Amazing charts Parox ysmal positional vertigo Completed 12/09/2014 Patient Education: Smoking and Tobacco Addiction Completed 12/09/2014 Referral: Hugo Villatoro HPtel:[phone] [facility] Referral Appointment Requested Referral: Luis Donohue Referral Appointment Requested Instructions Comment . Cellulitis - start oral antibiotics as [...] readings are starting to become less controlled. Usujws-cdcynmp-hvnmr labs . COPD -recent pneum onia-symptoms have [...] is stable, monitor for acute changes. . Orthostatic hypote nsion -recommend patient pump legs before standing -change positions slowly- monitor blood pressures Chronic Pain Syndrome - pt has chronic pain - has been maintained on current medications, has not sought out other medications, only uses PRN pain medications as directed, and understands the consequences of over-medication. Gait instability-recommend patient use a walker decrease glipizide t o 5mg twice daily [...] change in blood pressure readings at home. Oypddpgo-ehpcoq-qmzce to see Dr Villatoro Constipation-start linzess daily [...] POTENTIAL SIDE EFFECTS AND WORSENING OF SYMPTOMS. Zdyuztgr-zejfduhl-ZMOB SIMVASTATIN X 2 WEEKS AND CALL WITH [...] Insulin Dependent Diabetes- Check labs today. . Diabetes Mellitus - controlled - per [...] patient is stable, monitor for acute changes. 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
[2020-03-29] MEDS ORDERED: PROPOFOL INJECTION 50 ML IV ONE (07:38)
--- OUTSIDE RECORDS SUMMARY | 2020-03-29 07:41 | XMS REPORT | CCD ---
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 Visbreaking Name Role Phone PP Unavailable CCM Unavailable Summary Purpose Interface Exchange Insurance Providers Payer name Policy type / Coverage type Covered constitution party ID Effective Begin Date Effective End Date WPS Medicare Part B Medicare Part B [id number] Unknown Unknown [employer] Medicar e Part B [id number] Unknown Unkn own Family history Father Diagnosis Age At Onset Cancer Unknown Mother Diagnosis Age At Onset Cancer Unknown Social History Social History Element Codes Description Effective Dates Number of cigarettes/day Unknown 20 (One Pack) 03/03/2019 Marital status Unknown M arried 12/09/2014 Employment Unknown Retir ed 12/09/[address]: 04238774 Currently smokes tobacco 12/09/2014 Number of years using tobacco Unknown > 50 12/09/[address]: 157403683 Never drinks alcohol 12/09/2014 Allergies, Adverse Reactions, [...] 300 unit/mL (1.5 mL) subcutaneous pen RxNorm: 3298155 35 Unit(s) SQ QHS 03/05/2019 07/02/2019 Active Dosage change! testosterone cypiona te 200 mg/mL intramuscular oil RxNorm: 2687526 1/2 Milliliter(s) IM 03/04/2019 03/04/2019 Inactive Toujeo SoloStar U-30 0 Insulin 300 unit/mL (1.5 mL) subcutaneous pen RxNorm: 0422328 30 Unit(s) SQ QHS 03/03/2019 03/04/2019 Inactive Xanax 0.5 mg tablet RxNorm: 602696 Tablet(s) as needed TAKE ONE TABLET BY M OUTH THREE TIMES A DAY 02/19/2019 04/19/2019 Active Xanax 0.5 mg tablet RxNorm: 167726 Tablet(s) TAKE ONE TABLET BY MOUTH THREE TIMES A DAY 02/19/2019 02/18/2019 Inactive hydrocodone 5 mg-linh taminophen 325 mg tablet RxNorm: 568817 1 Tablet(s) PO Q6-8H as needed 02/16/2019 03/12/2019 Active testosterone cypiona te 200 mg/mL intramuscular oil RxNorm: 7164024 Milliliter(s) IM 02/16/2019 02/16/2019 In active Protonix 40 mg table t,delayed release RxNorm: 176617 TAKE 1 TABLET BY MOUT H DAILY 02/02/2019 01/27/2020 Ac tive - Ref: [id number] simvastatin 40 mg ta blet RxNorm: 578076 TAKE 1 TABLET BY MOUT H DAILY AT BEDTIME 02/02/2019 01/27/2020 Ac tive - Ref: [id number] testosterone cypiona te 200 mg/mL intramuscular oil RxNorm: 4950044 Milliliter(s) IM 01/30/2019 01/30/2019 In active testosterone cypiona te 200 mg/mL intramuscular oil RxNorm: 3656681 1/2 Milliliter(s) IM Q0lyfzd 01/16/2019 05/15/2019 Active testosterone cypiona te 200 mg/mL intramuscular oil RxNorm: 7785668 Milliliter(s) IM 01/16/2019 01/16/2019 In active hydrocodone 5 mg-linh taminophen 325 mg tablet RxNorm: 450738 1 Tablet(s) PO Q6-8H as needed 01/14/2019 02/07/2019 Inactive testosterone cypiona te 200 mg/mL intramuscular oil RxNorm: 0297293 Milliliter(s) IM 01/01/2019 01/01/2019 In active Xanax 0.5 mg tablet RxNorm: 551015 1 Tablet(s) PO TID 12/18/2018 02/14/2019 Inactive testosterone cypiona te 200 mg/mL intramuscular oil RxNorm: 2294776 Milliliter(s) IM 12/17/2018 12/17/2018 In active hydrocodone 5 mg-linh taminophen 325 mg tablet RxNorm: 396986 1 Tablet(s) PO Q6-8H as needed 12/15/2018 01/08/2019 Inactive testosterone cypiona te 200 mg/mL intramuscular oil RxNorm: 8793504 Milliliter(s) IM 12/02/2018 12/02/2018 In active testosterone cypiona te 200 mg/mL intramuscular oil RxNorm: 6923652 Milliliter(s) IM 11/18/2018 11/18/2018 In active hydrocodone 5 mg-linh taminophen 325 mg tablet RxNorm: 831335 1 Tablet(s) PO Q6-8H as needed 11/13/2018 12/07/2018 Inactive testosterone cypiona te 200 mg/mL intramuscular oil RxNorm: 7950294 1/2 Milliliter(s) IM [id number] 11/04/2018 01/15/2019 Inactive testosterone cypiona te 200 mg/mL intramuscular oil RxNorm: 2655361 Milliliter(s) IM 11/04/2018 11/04/2018 In active nicotine 21 mg/24 hr daily transdermal patch RxNorm: 176918 1 TD daily 10/31/2018 10/30/2018 In active nicotine 21 mg/24 hr daily transdermal patch RxNorm: 137714 1 TD daily 10/31/2018 11/29/2018 In active meclizine 25 mg tablet RxNorm: 479860 1 Tablet(s) PO Q6 PRN TAKE ONE TABLET BY MOUTH EVERY 6 HOURS NEEDED 10/17/2018 01/14/2019 Inactive hydrocodone 5 mg-linh taminophen 325 mg tablet RxNorm: 640046 1 Tablet(s) PO Q6-8H as needed 10/17/2018 11/10/2018 Inactive metformin 500 mg tablet RxNorm: 265857 Tablet(s) TAKE 1 TABLET BY MOUTH DAILY 10/15/2018 10/09/2019 Ac tive lisinopril 10 mg tablet RxNorm: 252385 TAKE 1 TABLET BY MOUTH TWO TIMES DAILY 10/15/2018 10/09/2019 Ac tive - First Attempt Ref: [id number] testosterone cypiona te 200 mg/mL intramuscular oil RxNorm: 8490222 Milliliter(s) IM 10/14/2018 10/14/2018 In active Xanax 0.5 mg tablet RxNorm: 012573 1 Tablet(s) PO TID 10/03/2018 11/30/2018 Inactive testosterone cypiona te 200 mg/mL intramuscular oil RxNorm: 0024627 1/2 Milliliter(s) IM weekly 10/03/2018 11/03/2018 Inactive testosterone cypiona te 200 mg/mL intramuscular oil RxNorm: 3815268 Milliliter(s) IM 10/03/2018 10/03/2018 In active testosterone cypiona te 200 mg/mL intramuscular oil RxNorm: 4294589 Milliliter(s) IM 09/23/2018 09/23/2018 In active hydrocodone 5 mg-linh taminophen 325 mg tablet RxNorm: 807137 1 Tablet(s) PO Q6-8H as needed 09/22/2018 10/16/2018 Inactive testosterone cypiona te 200 mg/mL intramuscular oil RxNorm: 2749806 1/2 Milliliter(s) IM 09/02/2018 09/02/2018 Inactive testosterone enantha te 200 mg/mL intramuscular oil RxNorm: 710985 Milliliter(s) IM 08/21/2018 08/21/2018 In active hydrocodone 5 mg-linh taminophen 325 mg tablet RxNorm: 470808 1 Tablet(s) PO Q6-8H as needed 08/21/2018 09/14/2018 Inactive testosterone cypiona te 200 mg/mL intramuscular oil RxNorm: 8487485 Milliliter(s) IM 08/08/2018 08/08/2018 In active testosterone cypiona te 200 mg/mL intramuscular oil RxNorm: 0846266 1/2 Milliliter(s) IM 07/28/2018 07/28/2018 Inactive hydrocodone 5 mg-linh taminophen 325 mg tablet RxNorm: 778830 1 Tablet(s) PO Q6-8H as needed 07/21/2018 08/14/2018 Inactive testosterone cypiona te 200 mg/mL intramuscular oil RxNorm: 766120 Milliliter(s) IM 07/16/2018 07/16/2018 In active testosterone cypiona te 200 mg/mL intramuscular oil RxNorm: 255207 Milliliter(s) IM 07/02/2018 07/02/2018 In active Xanax 0.5 mg tablet RxNorm: 502902 1 Tablet(s) PO TID 06/27/2018 08/24/2018 Inactive testosterone cypiona te 200 mg/mL intramuscular oil RxNorm: 632511 Milliliter(s) IM 06/24/2018 06/24/2018 In active hydrocodone 5 mg-linh taminophen 325 mg tablet RxNorm: 202641 1 Tablet(s) PO Q6-8H as needed 06/23/2018 07/17/2018 Inactive testosterone cypiona te 200 mg/mL intramuscular oil RxNorm: 154002 Milliliter(s) IM 06/13/2018 06/13/2018 In active testosterone cypiona te 200 mg/mL intramuscular oil RxNorm: 583186 Milliliter(s) IM 06/05/2018 06/05/2018 In active testosterone cypiona te 200 mg/mL intramuscular oil RxNorm: 0366086 1/2 Milliliter(s) IM weekly 05/30/2018 09/26/2018 Inactive testosterone cypiona te 200 mg/mL intramuscular oil RxNorm: 819335 Milliliter(s) IM 05/30/2018 05/30/2018 In active testosterone cypiona te 200 mg/mL intramuscular oil RxNorm: 631570 Milliliter(s) IM 05/22/2018 05/22/2018 In active hydrocodone 5 mg-linh taminophen 325 mg tablet RxNorm: 924324 1 Tablet(s) PO Q6-8H as needed 05/20/2018 06/13/2018 Inactive testosterone cypiona te 200 mg/mL intramuscular oil RxNorm: 263840 1/2 Milliliter(s) IM 05/12/2018 05/12/2018 Inactive testosterone cypiona te 200 mg/mL intramuscular oil RxNorm: 640816 Milliliter(s) IM 05/02/2018 05/02/2018 In active testosterone cypiona te 200 mg/mL intramuscular oil RxNorm: 540311 1/2 Milliliter(s) IM weekly 04/24/2018 05/29/2018 Inactive testosterone cypiona te 200 mg/mL intramuscular oil RxNorm: 817917 0.5 Milliliter(s) IM 04/24/2018 04/24/2018 Inactive hydrocodone 5 mg-linh taminophen 325 mg tablet RxNorm: 915953 1 Tablet(s) PO Q6-8H as needed 04/22/2018 05/16/2018 Inactive testosterone cypiona te 200 mg/mL intramuscular oil RxNorm: 159998 1/2 Milliliter(s) IM 04/17/2018 04/17/2018 Inactive testosterone cypiona te 200 mg/mL intramuscular oil RxNorm: 328248 1/2 Milliliter(s) IM weekly 04/16/2018 04/23/2018 Inactive Jardiance 10 mg tablet RxNorm: 0790272 1 Tablet(s) PO daily 04/04/2018 12/29/2018 Inactive testosterone cypiona te 200 mg/mL intramuscular oil RxNorm: 647421 1 Milliliter(s) IM monthly 04/04/2018 04/15/2018 Inactive Protonix 40 mg table t,delayed release RxNorm: 180857 1 Tablet(s) PO daily TAKE 1 TABLET BY MOUTH DAILY 04/04/2018 02/01/2019 Inactive - Ref: [id number] hydrocodone 5 mg-linh taminophen 325 mg tablet RxNorm: 131583 1 Tablet(s) PO Q6-8H as needed 03/19/2018 04/12/2018 Inactive Flomax 0.4 mg capsule RxNorm: 930733 1 Capsule(s) PO daily 03/10/2018 03/04/2019 Inactive Urecholine 25 mg tablet RxNorm: 671210 1 Tablet(s) PO BID 03/10/2018 07/07/2018 Inactive ketorolac 60 mg/2 mL intramuscular solution RxNorm: 4788060 Milliliter(s) IM 03/07/2018 03/07/2018 In active metformin 500 mg tablet RxNorm: 294514 Tablet(s) TAKE 1 TABLET BY MOUTH DAILY 02/20/2018 02/13/2019 In active 1 q am and 1/2 tab q pm hydrocodone 5 mg-linh taminophen 325 mg tablet RxNorm: 234894 1 Tablet(s) PO Q6-8H as needed 02/20/2018 03/16/2018 Inactive Kenalog 40 mg/mL bartolome pension for injection RxNorm: 6719585 1.5 Milliliter(s) In j 01/30/2018 01/30/2018 In active hydrocodone 5 mg-linh taminophen 325 mg tablet RxNorm: 122025 1 Tablet(s) PO Q6-8H as needed 01/23/2018 02/16/2018 Inactive Urecholine 25 mg tablet RxNorm: 300981 1 Tablet(s) PO BID 01/22/2018 03/09/2018 Inactive Flomax 0.4 mg capsule RxNorm: 336375 1 Capsule(s) PO daily 01/22/2018 03/09/2018 Inactive Flomax 0.4 mg capsule RxNorm: 025720 1 Capsule(s) PO daily 01/22/2018 01/21/2018 Inactive Urecholine 25 mg tablet RxNorm: 005544 1 Tablet(s) PO BID 01/22/2018 01/21/2018 Inactive testosterone cypiona te 200 mg/mL intramuscular oil RxNorm: 640728 Milliliter(s) IM 01/17/2018 01/17/2018 In active testosterone cypiona te 200 mg/mL intramuscular oil RxNorm: 736142 1 Milliliter(s) IM monthly 01/17/2018 04/03/2018 Inactive doxycycline hyclate 100 mg tablet RxNorm: 184476 1 Tablet(s) PO BID 01/14/2018 01/23/2018 Inactive lisinopril 10 mg tablet RxNorm: 660866 TAKE 1 TABLET BY MOUTH TWO TIMES DAILY 01/14/2018 10/14/2018 In active - First Attempt Ref: [id number] nystatin 100,000 uni t/mL oral suspension RxNorm: 933071 4 Milliliter(s) PO QI D Swish and swallow 01/08/2018 01/07/2018 Inactive nystatin 100,000 uni t/mL oral suspension RxNorm: 967920 4 Milliliter(s) PO QI D Swish and swallow 01/08/2018 01/12/2018 Inactive Xanax 0.5 mg tablet RxNorm: 204472 1 Tablet(s) PO TID 01/08/2018 12/23/2018 Inactive simvastatin 40 mg ta blet RxNorm: 829385 TAKE 1 TABLET BY MOUT H DAILY AT BEDTIME 12/30/2017 12/24/2018 In active - First Attempt Ref: [id number] metformin 500 mg tablet RxNorm: 987759 TAKE 1 TABLET BY MOUTH DAILY 12/30/2017 02/19/2018 Inactive - First Attempt Ref: [id number] hydrocodone 5 mg-linh taminophen 325 mg tablet RxNorm: 371021 1 Tablet(s) PO Q6-8H as needed 12/25/2017 01/18/2018 Inactive Protonix 40 mg table t,delayed release RxNorm: 970079 Tablet(s) TAKE 1 TABL ET BY MOUTH DAILY 11/20/2017 04/03/2018 Inactive - Ref: [id number] Linzess 72 mcg capsule RxNorm: 8296556 1 Capsule(s) PO daily 11/19/2017 No Stop Date Active hydrocodone 5 mg-linh taminophen 325 mg tablet RxNorm: 808724 1 Tablet(s) PO Q6-8H as needed 11/19/2017 12/13/2017 Inactive hydrocodone 5 mg-linh taminophen 325 mg tablet RxNorm: 330256 1 Tablet(s) PO Q6-8H as needed 10/28/2017 11/18/2017 Inactive Xanax 0.5 mg tablet RxNorm: 675324 1 Tablet(s) PO TID 10/25/2017 12/22/2017 Inactive Xanax 0.5 mg tablet RxNorm: 736090 TAKE ONE TABLET BY MOUTH THREE TIMES A D AY 10/24/2017 12/01/2018 In active hydrocodone 5 mg-linh taminophen 325 mg tablet RxNorm: 279365 1 Tablet(s) PO Q6-8H as needed 09/30/2017 10/24/2017 Inactive Protonix 40 mg table t,delayed release RxNorm: 025301 TAKE 1 TABLET BY MOUT H DAILY 09/16/2017 11/19/2017 In active - Ref: [id number] Yovana WheeleroStar 300 unit/mL (1.5 mL) subcutaneous insulin pen RxNorm: 6355109 35 Unit(s) SQ QHS 08/30/2017 03/02/2019 Inactive dosage increase hydrocodone 5 mg-linh taminophen 325 mg tablet RxNorm: 187582 1 Tablet(s) PO Q6-8H as needed 08/28/2017 09/29/2017 Inactive hydrocodone 5 mg-linh taminophen 325 mg tablet RxNorm: 155904 1 Tablet(s) PO Q6-8H as needed 07/23/2017 08/24/2017 Inactive lisinopril 10 mg tablet RxNorm: 202816 1 Tablet(s) PO BID Take 1 tablet by mout h daily 07/23/2017 01/13/2018 Inactive hydrocodone 5 mg-linh taminophen 325 mg tablet RxNorm: 263394 1 Tablet(s) PO Q6-8H as needed 06/27/2017 07/22/2017 Inactive Xanax 0.5 mg tablet RxNorm: 390427 1 Tablet(s) PO TID 06/18/2017 10/25/2017 Inactive hydrocodone 5 mg-linh taminophen 325 mg tablet RxNorm: 506022 1 Tablet(s) PO Q6-8H as needed 05/27/2017 06/26/2017 Inactive Levaquin 500 mg tablet RxNorm: 555685 1 Tablet(s) PO daily 05/24/2017 05/23/2017 Inactive Levaquin 500 mg tablet RxNorm: 684306 1 Tablet(s) PO daily 05/24/2017 05/30/2017 Inactive Protonix 40 mg table t,delayed release RxNorm: 047702 Take 1 tablet by mout h daily 04/29/2017 09/15/2017 In active - Ref: [id number] hydrocodone 5 mg-linh taminophen 325 mg tablet RxNorm: 483532 1 Tablet(s) PO Q6-8H as needed 04/25/2017 05/26/2017 Inactive metformin 500 mg tablet RxNorm: 251167 Take 1 tablet by mouth daily 04/08/2017 12/29/2017 Inactive - First Attempt Ref: [id number] hydrocodone 5 mg-linh taminophen 325 mg tablet RxNorm: 403849 1 Tablet(s) PO Q6-8H as needed 03/27/2017 04/24/2017 Inactive hydrocodone 5 mg-linh taminophen 325 mg tablet RxNorm: 842696 1 Tablet(s) PO Q6-8H as needed 02/25/2017 03/26/2017 Inactive Protonix 40 mg table t,delayed release RxNorm: 111124 Tablet(s) Take 1 tabl et by mouth BID 02/25/2017 04/28/2017 Inactive Protonix 40 mg table t,delayed release RxNorm: 194379 Tablet(s) Take 1 tabl et by mouth BID 02/19/2017 02/18/2017 Inactive Protonix 40 mg table t,delayed release RxNorm: 976248 Tablet(s) Take 1 tabl et by mouth BID 02/19/2017 02/24/2017 Inactive lisinopril 10 mg tablet RxNorm: 651801 Take 1 tablet by mouth daily 01/29/2017 07/22/2017 Inactive - First Attempt Ref: [id number] hydrocodone 5 mg-linh taminophen 325 mg tablet RxNorm: 898254 1 Tablet(s) PO Q6-8H as needed 01/25/2017 02/24/2017 Inactive simvastatin 40 mg ta blet RxNorm: 685353 Tablet(s) Take 1 tabl et by mouth daily at bedtime 01/03/2017 12/28/2017 Inactive lisinopril 10 mg tablet RxNorm: 820473 Tablet(s) Take 1 tablet by mouth daily 01/03/2017 01/28/2017 In active Protonix 40 mg table t,delayed release RxNorm: 753941 Tablet(s) Take 1 tabl et by mouth daily 12/28/2016 02/18/2017 Inactive hydrocodone 5 mg-linh taminophen 325 mg tablet RxNorm: 616830 1 Tablet(s) PO Q6-8H as needed 12/26/2016 01/24/2017 Inactive Xanax 0.5 mg tablet RxNorm: 441003 1 Tablet(s) PO TID 12/12/2016 03/11/2017 Inactive simvastatin 40 mg ta blet RxNorm: 540492 Tablet(s) Take 1 tabl et by mouth daily at bedtime 11/30/2016 01/02/2017 Inactive simvastatin 40 mg ta blet RxNorm: 590878 Take 1 tablet by mout h daily at bedtime 11/29/2016 11/29/2016 In active - First Attempt Ref: [id number] Protonix 40 mg table t,delayed release RxNorm: 396607 Take 1 tablet by mout h daily 11/27/2016 12/27/2016 In active - First Attempt Ref: [id number] hydrocodone 5 mg-linh taminophen 325 mg tablet RxNorm: 787874 1 Tablet(s) PO Q6-8H as needed 11/26/2016 12/25/2016 Inactive hydrocodone 5 mg-linh taminophen 325 mg tablet RxNorm: 800686 1 Tablet(s) PO Q8 as needed 10/24/2016 11/25/2016 Inactive Xanax 0.5 mg tablet RxNorm: 026274 1 Tablet(s) PO TID 10/09/2016 12/25/2016 Inactive hydrocodone 5 mg-linh taminophen 325 mg tablet RxNorm: 555530 1 Tablet(s) PO Q8 as needed 09/27/2016 10/23/2016 Inactive lisinopril 10 mg tablet RxNorm: 139013 Take 1 tablet by mouth daily 09/25/2016 01/02/2017 Inactive - First Attempt Ref: [id number] Vitamin D2 50,000 un it capsule RxNorm: 441658 1 Capsule(s) PO QW 09/06/2016 12/01/2018 Inactive hydrocodone 5 mg-linh taminophen 325 mg tablet RxNorm: 309729 1 Tablet(s) PO Q8 as needed 08/28/2016 09/26/2016 Inactive Touanuj SoloStar 300 unit/mL (1.5 mL) subcutaneous insulin pen RxNorm: 8425148 25 Unit(s) SQ QHS 08/23/2016 08/29/2017 Inactive dosage increase hydrocodone 5 mg-linh taminophen 325 mg tablet RxNorm: 263028 1 Tablet(s) PO Q8 as needed 07/26/2016 08/27/2016 Inactive Protonix 40 mg table t,delayed release RxNorm: 145745 Take 1 tablet by mout h daily 07/24/2016 11/26/2016 In active - First Attempt Ref: [id number] hydrocodone 5 mg-linh taminophen 325 mg tablet RxNorm: 248492 1 Tablet(s) PO Q8 as needed 06/19/2016 07/21/2016 Inactive Yovana WheelerMeirar 300 unit/mL (1.5 mL) subcutaneous insulin pen RxNorm: 3539096 32 Unit(s) SQ QHS 05/30/2016 08/22/2016 Inactive dosage increase hydrocodone 5 mg-linh taminophen 325 mg tablet RxNorm: 499456 1 Tablet(s) PO Q8 as needed 05/22/2016 06/18/2016 Inactive hydrocodone 5 mg-linh taminophen 325 mg tablet RxNorm: 175294 1 Tablet(s) PO Q8 as needed 04/18/2016 05/17/2016 Inactive Protonix 40 mg table t,delayed release RxNorm: 600452 Take 1 tablet by mout h daily 04/05/2016 07/03/2016 In active - Ref: [id number] metformin 500 mg tablet RxNorm: 443346 Take 1 tablet by mouth daily 04/04/2016 07/02/2016 Inactive - Ref: [id number] Xanax 0.5 mg tablet RxNorm: 414746 1 Tablet(s) PO TID 03/30/2016 09/25/2016 Inactive Xanax 0.5 mg tablet RxNorm: 776187 1 Tablet(s) PO TID 03/23/2016 12/25/2016 Inactive hydrocodone 5 mg-linh taminophen 325 mg tablet RxNorm: 243546 1 Tablet(s) PO Q8 as needed 03/06/2016 04/04/2016 Inactive Cipro 500 mg tablet RxNorm: 538921 1 Tablet(s) PO BID 02/24/2016 03/04/2016 Inactive Miralax 17 gram oral powder packet RxNorm: 851213 1 packet PO every oth er day 01/27/2016 No Stop Date Active hydrocodone 5 mg-linh taminophen 325 mg tablet RxNorm: 138938 1 Tablet(s) PO Q8 as needed 01/27/2016 02/25/2016 Inactive lisinopril 10 mg tablet RxNorm: 673754 1 Tablet(s) PO daily 01/12/2016 09/24/2016 Inactive simvastatin 40 mg ta blet RxNorm: 098286 1 Tablet(s) PO QHS 01/12/2016 11/28/2016 Inactive simvastatin 40 mg ta blet RxNorm: 230367 1 Tablet(s) PO QHS 01/11/2016 01/11/2016 Inactive lisinopril 10 mg tablet RxNorm: 851751 1 Tablet(s) PO daily 01/06/2016 01/11/2016 Inactive simvastatin 40 mg ta blet RxNorm: 409436 1 Tablet(s) PO daily 12/28/2015 01/10/2016 Inactive hydrocodone 5 mg-linh taminophen 325 mg tablet RxNorm: 828541 1 Tablet(s) PO Q8 as needed 12/27/2015 01/26/2016 Inactive Xanax 0.5 mg tablet RxNorm: 767119 1 Tablet(s) PO TID 11/30/2015 03/29/2016 Inactive Toujeo SoloStar 300 unit/mL (1.5 mL) subcutaneous insulin pen RxNorm: 2174637 30 Unit(s) SQ QHS 11/25/2015 05/29/2016 Inactive dosage increase meclizine 25 mg tablet RxNorm: 734596 1 Tablet(s) PO Q6 PRN TAKE ONE TABLET BY MOUTH EVERY 6 HOURS NEEDED 11/25/2015 02/22/2016 Inactive omeprazole 20 mg cap jacquelyn,delayed release RxNorm: 188853 1 Capsule(s) PO daily 10/06/2015 01/26/2016 In active Toujeo SoloStar 300 unit/mL (1.5 mL) subcutaneous insulin pen RxNorm: 0413770 35 Unit(s) SQ QHS 08/02/2015 11/24/2015 Inactive dosage increase Vitamin D2 50,000 un it capsule RxNorm: 464376 1 Capsule(s) PO QW 08/02/2015 09/05/2016 Inactive hydrocodone 5 mg-linh taminophen 325 mg tablet RxNorm: 922499 1 Tablet(s) PO Q8 as needed 07/11/2015 12/26/2015 Inactive Xanax 0.5 mg tablet RxNorm: 659787 1 Tablet(s) PO TID 06/30/2015 06/29/2015 Inactive Xanax 0.5 mg tablet RxNorm: 019727 1 Tablet(s) PO TID 06/30/2015 12/25/2015 Inactive hydrocodone 5 mg-linh taminophen 325 mg tablet RxNorm: 684695 1 Tablet(s) PO Q8 as needed 05/06/2015 07/10/2015 Inactive Symbicort 160 mcg-4. 5 mcg/actuation HFA aerosol inhaler RxNorm: 2040298 INH 04/25/2015 No Stop Date Active Levemir FlexTouch 10 0 unit/mL (3 mL) subcutaneous insulin pen RxNorm: 076512 30 Unit(s) SQ QHS 04/25/2015 11/24/2015 Inactive prednisone 20 mg tablet RxNorm: 256747 1 Tablet(s) PO BID 04/25/2015 04/29/2015 Inactive metformin 500 mg tablet RxNorm: 978568 1 Tablet(s) PO daily 04/25/2015 04/03/2016 Inactive amoxicillin 500 mg c apsule RxNorm: 888155 1 Capsule(s) PO TID 04/14/2015 04/13/2015 Inactive amoxicillin 500 mg c apsule RxNorm: 365530 1 Capsule(s) PO TID a nd recommend probiotic tid (otc) 04/14/2015 04/20/2015 Inactive Kenalog 40 mg/mL bartolome pension for injection RxNorm: 2170690 Milliliter(s) Inj 04/12/2015 04/12/2015 In active hydrocodone 5 mg-linh taminophen 325 mg tablet RxNorm: 112265 1 Tablet(s) PO Q8 as needed 03/30/2015 05/05/2015 Inactive Lantus 100 unit/mL s ubcutaneous solution RxNorm: 882857 25 Unit(s) SQ QPM 03/24/2015 04/25/2015 In active meclizine 25 mg tablet RxNorm: 349187 Tablet(s) TAKE ONE TABLET BY MOUTH EVERY 6 HOURS NEEDED 03/08/2015 04/06/2015 Inactive meclizine 25 mg tablet RxNorm: 684656 TAKE ONE TABLET BY MOUTH EVERY 6 HOURS A S NEEDED 02/25/2015 03/03/2015 Inactive Lantus 100 unit/mL s ubcutaneous solution RxNorm: 496650 20 Unit(s) SQ QPM 02/23/2015 03/23/2015 In active Lantus 100 unit/mL s ubcutaneous solution RxNorm: 966725 25 Unit(s) SQ QPM 02/23/2015 02/22/2015 In active hydrocodone 5 mg-linh taminophen 325 mg tablet RxNorm: 395982 1 Tablet(s) PO Q8 as needed 02/17/2015 03/29/2015 Inactive Xanax 0.5 mg tablet RxNorm: 574248 1 Tablet(s) PO TID 02/03/2015 06/29/2015 Inactive Lantus 100 unit/mL s ubcutaneous solution RxNorm: 662928 20 Unit(s) SQ QPM 12/29/2014 02/22/2015 In active Phenergan 12.5 mg re ctal suppository RxNorm: 681422 1 Suppository RTL Q6 PRN 12/23/2014 No Stop Date Active nausea Kenalog 40 mg/mL bartolome pension for injection RxNorm: 2081482 Milliliter(s) Inj 12/23/2014 12/23/2014 In active prednisone 20 mg tablet RxNorm: 240200 2 Tablet(s) PO daily 12/13/2014 12/17/2014 Inactive prednisone 20 mg tablet RxNorm: 345376 2 Tablet(s) PO daily 12/13/2014 12/12/2014 Inactive meclizine 25 mg tablet RxNorm: 736858 1 Tablet(s) PO Q6 PRN 12/09/2014 02/24/2015 Inactive hydrocodone 5 mg-linh taminophen 325 mg tablet RxNorm: 343531 1 Tablet(s) PO Q8 as needed 12/09/2014 02/16/2015 Inactive Vitamin B-12 1,000 m cg/mL oral drops RxNorm: 3104459 1 Milliliter(s) PO d aily No Start Date Active Alphagan P 0.1 % eye drops RxNorm: 230423 1 Drop(s) OPH BID No Start Date Active aspirin 325 mg table t,delayed release RxNorm: 153084 1 Tablet(s) PO daily No Start Date Active Tricor 145 mg tablet RxNorm: 712700 1 Tablet(s) PO daily No Start Date Active vitamin [id number] B1 oral liquid RxNorm: 1,000 Microgram(s) PO daily No Start Date Active atenolol 50 mg tablet RxNorm: 005430 1 Tablet(s) PO daily No Start Date Active Protonix 40 mg table t,delayed release RxNorm: 194654 1 Tablet(s) PO daily No Start Date 04/04/2016 Inactive glipizide 10 mg tablet RxNorm: 523811 1 Tablet(s) PO BID No Start Date 03/22/2015 Inactive Lantus 100 unit/mL s ubcutaneous solution RxNorm: 616532 15 Unit(s) SQ QPM No Start Date 12/28/2014 Inactive lisinopril 10 mg tablet RxNorm: 802800 1 Tablet(s) PO daily No Start Date 01/05/2016 Inactive Vitamin D2 50,000 un it capsule RxNorm: 041557 1 Capsule(s) PO QW No Start Date 08/01/2015 Inactive Toujeo SoloStar 300 unit/mL (1.5 mL) subcutaneous insulin pen RxNorm: 6320780 30 Unit(s) SQ QHS No Start Date 08/01/2015 Inactive simvastatin 40 mg ta blet RxNorm: 242621 1 Tablet(s) PO daily No Start Date 12/27/2015 Inactive testosterone cypiona te 200 mg/mL intramuscular oil RxNorm: 435149 1 Milliliter(s) IM monthly No Start Date 01/16/2018 Inactive hydrocodone 5 mg-linh taminophen 325 mg tablet RxNorm: 350328 1 Tablet(s) PO Q8 as needed No Start Date 12/08/2014 Inactive metformin 500 mg tablet RxNorm: 756353 1 Tablet(s) PO daily No Start Date 04/24/2015 Inactive omeprazole 20 mg cap jacquelyn,delayed release RxNorm: 312378 1 Capsule(s) PO daily No Start Date 10/05/2015 Inactive Flomax 0.4 mg capsule RxNorm: 752407 1 Capsule(s) PO daily No Start Date 03/23/2015 Inactive Medication Administered Medication Codes Instruc tions Start Date Status testosterone cypionate 200 mg/mL intramuscular oil RxNorm: 9237328 1/2Milliliter 03/04/2019 No longer Active testosterone cypionate 200 mg/mL intramuscular oil RxNorm: 8551618 Milliliter 02/16/2019 No longer Active testosterone cypionate 200 mg/mL intramuscular oil RxNorm: 4970086 Milliliter 01/30/2019 No longer Active testosterone cypionate 200 mg/mL intramuscular oil RxNorm: [id number] [facility] 01/16/2019 No longer Active testosterone cypionate 200 mg/mL intramuscular oil RxNorm: 8734827 [facility] 01/01/2019 No longer Active testosterone cypionate 200 mg/mL intramuscular oil RxNorm: 3820123 [facility] 12/17/2018 No longer Active testosterone cypionate 200 mg/mL intramuscular oil RxNorm: 2017929 [facility] 12/02/2018 No longer Active testosterone cypionate 200 mg/mL intramuscular oil RxNorm: 1273697 [facility] 11/18/2018 No longer Active testosterone cypionate 200 mg/mL intramuscular oil RxNorm: 9905765 [facility] 11/04/2018 No longer Active testosterone cypionate 200 mg/mL intramuscular oil RxNorm: 9561621 [facility] 10/14/2018 No longer Active testosterone cypionate 200 mg/mL intramuscular oil RxNorm: 2558179 [facility] 10/03/2018 No longer Active testosterone cypionate 200 mg/mL intramuscular oil RxNorm: 3568052 [facility] 09/23/2018 No longer Active testosterone cypionate 200 mg/mL intramuscular oil RxNorm: 4074450 1/2[facility] 09/02/2018 No longer Active testosterone enanthate 200 mg/mL intramuscular oil RxNorm: 879878 [facility] 08/21/2018 No longer Active testosterone cypionate 200 mg/mL intramuscular oil RxNorm: 2555508 [facility] 08/08/2018 No longer Active testosterone cypionate 200 mg/mL intramuscular oil RxNorm: 7680638 1/2[facility] 07/28/2018 No longer Active testosterone cypionate 200 mg/mL intramuscular oil RxNorm: 858027 [facility] 07/16/2018 No longer Active testosterone cypionate 200 mg/mL intramuscular oil RxNorm: 844680 [facility] 07/02/2018 No longer Active testosterone cypionate 200 mg/mL intramuscular oil RxNorm: 984050 [facility] 06/24/2018 No longer Active testosterone cypionate 200 mg/mL intramuscular oil RxNorm: 863467 [facility] 06/13/2018 No longer Active testosterone cypionate 200 mg/mL intramuscular oil RxNorm: 481116 [facility] 06/05/2018 No longer Active testosterone cypionate 200 mg/mL intramuscular oil RxNorm: 328444 [facility] 05/30/2018 No longer Active testosterone cypionate 200 mg/mL intramuscular oil RxNorm: 996763 [facility] 05/22/2018 No longer Active testosterone cypionate 200 mg/mL intramuscular oil RxNorm: 073037 1/2[facility] 05/12/2018 No longer Active testosterone cypionate 200 mg/mL intramuscular oil RxNorm: 234107 [facility] 05/02/2018 No longer Active testosterone cypionate 200 mg/mL intramuscular oil RxNorm: 676375 0.5[facility] 04/24/2018 No longer Active testosterone cypionate 200 mg/mL intramuscular oil RxNorm: 604478 1/2[facility] 04/17/2018 No longer Active ketorolac 60 mg/2 mL intramuscular solution RxNorm: 2059055 [facility] 03/07/2018 No longer Active Kenalog 40 mg/mL suspension for injection RxNorm: 8568367 1.5[facility] 01/30/2018 No longer Active testosterone cypionate 200 mg/mL intramuscular oil RxNorm: 157668 [facility] 01/17/2018 No longer Active Kenalog 40 mg/mL suspension for injection RxNorm: 2977186 [facility] 04/12/2015 No longer Active Kenalog 40 mg/mL suspension for injection RxNorm: 8265190 [facility] 12/23/2014 No longer Active Immunizations Vaccine [...] Observation Code Item Item Code Result Date %Hba1C Xqs009 % HbA1c 02463-0 7.9 % 03/04/2019 %Hba1C Bfy972 Gluc Ave 180 mg/dL 03/04/2019 Testosterone Wck428 Testo 142.2 ng/dL 03/04/2019 Cbc With Differential [...] 33.6 pg 03/04/2019 Cbc With Differential Ord2 [place]% 6.9 % 03/04/2019 Cbc With Differential Ord2 [...] 2.56 K/ul 03/04/2019 Cbc With Differential Ord2 [place] ABS# 0.5 K/ul 03/04/2019 Cbc With Differential Ord2 Eos ABS# 0.4 K/ul 03/04/2019 Cbc With Differential Ord2 Baso ABS# 0.0 K/ul 03/04/2019 Lipid Ord30 CHOL 114 mg/dL 03/04/2019 Lipid Ord30 HDL 25.0 mg/dl 03/04/2019 Lipid Ord30 TRIG 119 mg/dL 03/04/2019 Lipid Ord30 LDL 65 mg/dL 03/04/2019 Lipid Ord30 C/HDL 4.6 Ratio 03/04/2019 Tsh Ord6 TSH (3rd IS) 3.85 uIU/mL 03/04/2019 Comp Metabolic Gdx666 NA 142 mEq/L 03/04/2019 Comp Metabolic Mcy196 K 4.5 mEq/L 03/04/2019 Comp Metabolic Fgv296 CL 105 mEq/L 03/04/2019 Comp Metabolic Cpb141 CO2 30.0 mEq/L 03/04/2019 Comp Metabolic Hmn440 AN ION GAP 12 03/04/2019 Comp Metabolic Mfh395 GL UCOSE 92 mg/dL 03/04/2019 Comp Metabolic Wds280 Cr eat 1.0 mg/dL 03/04/2019 Comp Metabolic Jtb625 eG FR 80 ml/min/1.73m2 03/04 Comp Metabolic Brx763 BUN 20 mg/dL 03/04/2019 Comp Metabolic Jkz677 B/ C Ratio 20.8 Ratio 03/04/2019 Comp Metabolic Pwy002 CA LCIUM 9.0 mg/dL 03/04/2019 Comp Metabolic Joe930 AL K PHOS 67 U/L 03/04/2019 Comp Metabolic Xsu542 T(SGOT) 17 U/L 03/04/2019 Comp Metabolic Zey052 AL T(SGPT) 17 U/L 03/04/2019 Comp Metabolic Pdy449 BI LI T 0.4 mg/dL 03/04/2019 Comp Metabolic Oie912 AL BUMIN 3.9 g/dL 03/04/2019 Comp Metabolic Ngj361 TP RO 6.5 g/dL 03/04/2019 Comp Metabolic Tbw802 GL OB 2.6 g/dL 03/04/2019 Comp Metabolic Jjn715 A/ G Ratio 1.5 Ratio 03/04/2019 Comp Metabolic Gep331 Os mo 285 mOsmo 03/04/2019 Cbc With [...] 33.4 pg 12/02/2018 Cbc With Differential Ord2 [place]% 8.0 % 12/02/2018 Cbc With Differential Ord2 [...] 2.13 K/ul 12/02/2018 Cbc With Differential Ord2 [place] ABS# 0.6 K/ul 12/02/2018 Cbc With Differential Ord2 Eos ABS# 0.4 K/ul 12/02/2018 Cbc With Differential Ord2 Baso ABS# 0.0 K/ul 12/02/2018 Testosterone Itq222 Testo 213.5 ng/dL 12/02/2018 A1C Frequency Jzb371 A1CF 86454-6 Last [place] [facility] [place]: 201812/02/2018 Testosterone Yan266 Testo 669.0 ng/dL 09/08/2018 %Hba1C Aep687 % HbA1c 37855-5 7.4 % 09/08/2018 %Hba1C Nll108 Gluc Ave 166 mg/dL 09/08/2018 Lipid Ord30 CHOL 114 mg/dL 09/08/2018 Lipid Ord30 HDL 28.0 mg/dl 09/08/2018 Lipid Ord30 TRIG 154 mg/dL 09/08/2018 Lipid Ord30 LDL 55 mg/dL 09/08/2018 Lipid Ord30 C/HDL 4.1 Ratio 09/08/2018 Comp Metabolic Lmp357 NA 137 mEq/L 09/08/2018 Comp Metabolic Kcp824 K 4.3 mEq/L 09/08/2018 Comp Metabolic Enx801 CL 100 mEq/L 09/08/2018 Comp Metabolic Lkn707 CO2 27.0 mEq/L 09/08/2018 Comp Metabolic Hqk622 AN ION GAP 14 09/08/2018 Comp Metabolic Fjx719 GL UCOSE 85 mg/dL 09/08/2018 Comp Metabolic Pzm833 Cr eat 1.1 mg/dL 09/08/2018 Comp Metabolic Hqe592 eG FR 70 ml/min/1.73m2 09/08 Comp Metabolic Fft876 BUN 11 mg/dL 09/08/2018 Comp Metabolic Tne316 B/ C Ratio 10.3 Ratio 09/08/2018 Comp Metabolic Qnm558 CA LCIUM 9.2 mg/dL 09/08/2018 Comp Metabolic Svs711 AL K PHOS 65 U/L 09/08/2018 Comp Metabolic Hvr072 T(SGOT) 16 U/L 09/08/2018 Comp Metabolic Tvj877 AL T(SGPT) 14 U/L 09/08/2018 Comp Metabolic Wal762 BI LI T 0.6 mg/dL 09/08/2018 Comp Metabolic Xhv720 AL BUMIN 4.0 g/dL 09/08/2018 Comp Metabolic Mfa980 TP RO 6.6 g/dL 09/08/2018 Comp Metabolic Wdk498 GL OB 2.6 g/dL 09/08/2018 Comp Metabolic Jgd813 A/ G Ratio 1.6 Ratio 09/08/2018 Comp Metabolic Pyf814 Os mo 272 mOsmo 09/08/2018 Vitamin D 25 Oh Exm4302 VITAMIN D, 25 HYDROXY 37.17 ng/mL 09/08/2018 [...] 33.3 pg 09/08/2018 Cbc With Differential Ord2 [place]% 8.1 % 09/08/2018 Cbc With Differential Ord2 [...] 2.44 K/ul 09/08/2018 Cbc With Differential Ord2 [place] ABS# 0.6 K/ul 09/08/2018 Cbc With Differential Ord2 Eos ABS# 0.3 K/ul 09/08/2018 Cbc With Differential Ord2 Baso ABS# 0.0 K/ul 09/08/2018 Tsh Ord6 TSH (3rd IS) 2.72 uIU/mL 09/08/2018 Comp Metabolic Nfr086 NA 139 mEq/L 04/01/2018 Comp Metabolic Dce493 K 4.2 mEq/L 04/01/2018 Comp Metabolic Ynn791 CL 102 mEq/L 04/01/2018 Comp Metabolic Buw111 CO2 29.0 mEq/L 04/01/2018 Comp Metabolic Dia810 AN ION GAP 12 04/01/2018 Comp Metabolic Bmd217 GL UCOSE 87 mg/dL 04/01/2018 Comp Metabolic Ssr701 Cr eat 1.1 mg/dL 04/01/2018 Comp Metabolic Vlx677 eG FR 70 ml/min/1.73m2 04/01 Comp Metabolic Zwt328 BUN 21 mg/dL 04/01/2018 Comp Metabolic Hrz009 B/ C Ratio 19.4 Ratio 04/01/2018 Comp Metabolic Oga610 CA LCIUM 9.1 mg/dL 04/01/2018 Comp Metabolic Zwb904 AL K PHOS 60 U/L 04/01/2018 Comp Metabolic Jmh892 T(SGOT) 15 U/L 04/01/2018 Comp Metabolic Sdz902 AL T(SGPT) 18 U/L 04/01/2018 Comp Metabolic Rhw952 BI LI T 0.4 mg/dL 04/01/2018 Comp Metabolic Sxm369 AL BUMIN 4.0 g/dL 04/01/2018 Comp Metabolic Hle336 TP RO 6.5 g/dL 04/01/2018 Comp Metabolic Afx281 GL OB 2.5 g/dL 04/01/2018 Comp Metabolic Xkw116 A/ G Ratio 1.6 Ratio 04/01/2018 Comp Metabolic Afa446 Os mo 280 mOsmo 04/01/2018 Lipid Ord30 [...] 34.3 pg 04/01/2018 Cbc With Differential Ord2 [place]% 6.0 % 04/01/2018 Cbc With Differential Ord2 [...] 3.25 K/ul 04/01/2018 Cbc With Differential Ord2 [place] ABS# 0.6 K/ul 04/01/2018 Cbc With Differential Ord2 Eos ABS# 0.4 K/ul 04/01/2018 Cbc With Differential Ord2 Baso ABS# 0.0 K/ul 04/01/2018 %Hba1C Huw392 % HbA1c 80844-6 8.0 % 04/01/2018 %Hba1C Ugx333 Gluc Ave 183 mg/dL 04/01/2018 Testosterone Ceu256 Testo 111.3 ng/dL 04/01/2018 Testosterone Vzi432 Testo 135.4 ng/dL 01/14/2018 Cbc With Differential [...] 36.0 pg 01/14/2018 Cbc With Differential Ord2 [place]% 6.8 % 01/14/2018 Cbc With Differential Ord2 [...] 2.71 K/ul 01/14/2018 Cbc With Differential Ord2 [place] ABS# 0.8 K/ul 01/14/2018 Cbc With Differential Ord2 Eos ABS# 0.2 K/ul 01/14/2018 Cbc With Differential Ord2 Baso ABS# 0.0 K/ul 01/14/2018 Comp Metabolic Mzh178 NA 134 mEq/L 11/20/2017 Comp Metabolic Xna531 K 4.4 mEq/L 11/20/2017 Comp Metabolic Nuy083 CL 99 mEq/L 11/20/2017 Comp Metabolic Hpf976 CO2 29.0 mEq/L 11/20/2017 Comp Metabolic Yuv100 AN ION GAP 10 11/20/2017 Comp Metabolic Sax506 GL UCOSE 218 mg/dL 11/20/2017 Comp Metabolic Egz286 Cr eat 1.0 mg/dL 11/20/2017 Comp Metabolic Ujf399 eG FR 78 ml/min/1.73m2 11/20 Comp Metabolic Dhg760 BUN 13 mg/dL 11/20/2017 Comp Metabolic Tar911 B/ C Ratio 13.3 Ratio 11/20/2017 Comp Metabolic Qlo685 CA LCIUM 9.0 mg/dL 11/20/2017 Comp Metabolic Wmj462 AL K PHOS 71 U/L 11/20/2017 Comp Metabolic Ota521 T(SGOT) 18 U/L 11/20/2017 Comp Metabolic Edg838 AL T(SGPT) 17 U/L 11/20/2017 Comp Metabolic Rcq747 BI LI T 0.4 mg/dL 11/20/2017 Comp Metabolic Coe841 AL BUMIN 4.1 g/dL 11/20/2017 Comp Metabolic Qhl430 TP RO 6.5 g/dL 11/20/2017 Comp Metabolic Jvg389 GL OB 2.4 g/dL 11/20/2017 Comp Metabolic Mtm738 A/ G Ratio 1.8 Ratio 11/20/2017 Comp Metabolic Uqz059 Os mo 275 mOsmo 11/20/2017 Cbc With [...] 35.2 pg 11/20/2017 Cbc With Differential Ord2 [place]% 7.2 % 11/20/2017 Cbc With Differential Ord2 [...] 3.34 K/ul 11/20/2017 Cbc With Differential Ord2 [place] ABS# 0.6 K/ul 11/20/2017 Cbc With Differential Ord2 Eos ABS# 0.3 K/ul 11/20/2017 Cbc With Differential Ord2 Baso ABS# 0.0 K/ul 11/20/2017 Vitamin D 25 Oh Dsd9095 VITAMIN D, 25 HYDROXY 43.72 ng/mL 11/20/2017 %Hba1C Xpa977 % HbA1c 75603-9 7.4 % 11/20/2017 %Hba1C Ooj896 Gluc Ave 166 mg/dL 11/20/2017 %Hba1C Xkm057 % HbA1c 34465-4 7.2 % 08/20/2017 %Hba1C Wcb029 Gluc Ave 160 mg/dL 08/20/2017 Lipid Ord30 [...] 34.7 pg 08/20/2017 Cbc With Differential Ord2 [place]% 7.6 % 08/20/2017 Cbc With Differential Ord2 [...] 2.42 K/ul 08/20/2017 Cbc With Differential Ord2 [place] ABS# 0.6 K/ul 08/20/2017 Cbc With Differential Ord2 Eos ABS# 0.3 K/ul 08/20/2017 Cbc With Differential Ord2 Baso ABS# 0.0 K/ul 08/20/2017 Tsh Ord6 hTSH II 2.27 uIU/mL 08/20/2017 Comp Metabolic Bnx414 NA 138 mEq/L 08/20/2017 Comp Metabolic Wfx003 K 4.3 mEq/L 08/20/2017 Comp Metabolic Qjc833 CL 102 mEq/L 08/20/2017 Comp Metabolic Yav327 CO2 29.0 mEq/L 08/20/2017 Comp Metabolic Tds849 AN ION GAP 11 08/20/2017 Comp Metabolic Zdd484 GL UCOSE 89 mg/dL 08/20/2017 Comp Metabolic Wst120 Cr eat 1.0 mg/dL 08/20/2017 Comp Metabolic Mzl166 eG FR 80 ml/min/1.73m2 08/20 Comp Metabolic Mao122 BUN 13 mg/dL 08/20/2017 Comp Metabolic Hyk645 B/ C Ratio 13.5 Ratio 08/20/2017 Comp Metabolic Ydx109 CA LCIUM 9.2 mg/dL 08/20/2017 Comp Metabolic Lqp407 AL K PHOS 69 U/L 08/20/2017 Comp Metabolic Lop776 T(SGOT) 18 U/L 08/20/2017 Comp Metabolic Ggr350 AL T(SGPT) 19 U/L 08/20/2017 Comp Metabolic Cat969 BI LI T 0.6 mg/dL 08/20/2017 Comp Metabolic Tcq693 AL BUMIN 4.0 g/dL 08/20/2017 Comp Metabolic Raj882 TP RO 6.6 g/dL 08/20/2017 Comp Metabolic Xuo527 GL OB 2.6 g/dL 08/20/2017 Comp Metabolic Pbw798 A/ G Ratio 1.5 Ratio 08/20/2017 Comp Metabolic Mca032 Os mo 275 mOsmo 08/20/2017 Vitamin D 25 Oh Gfv7742 VITAMIN D, 25 HYDROXY 30.96 ng/mL 08/20/2017 B12 Lqs759 B12 >1500.00 pg/ml 02/22/2017 Cbc With Differential [...] 35.7 pg 02/20/2017 Cbc With Differential Ord2 [place]% 6.3 % 02/20/2017 Cbc With Differential Ord2 [...] 3.19 K/ul 02/20/2017 Cbc With Differential Ord2 [place] ABS# 0.5 K/ul 02/20/2017 Cbc With Differential Ord2 Eos ABS# 0.4 K/ul 02/20/2017 Cbc With Differential Ord2 Baso ABS# 0.0 K/ul 02/20/2017 Comp Metabolic Jss722 NA 138 mEq/L 02/20/2017 Comp Metabolic Qmq358 K 4.5 mEq/L 02/20/2017 Comp Metabolic Zgm962 CL 101 mEq/L 02/20/2017 Comp Metabolic Wve831 CO2 31.0 mEq/L 02/20/2017 Comp Metabolic Dgs810 AN ION GAP 11 02/20/2017 Comp Metabolic Des472 GL UCOSE 120 mg/dL 02/20/2017 Comp Metabolic Yrw916 Cr eat 0.9 mg/dL 02/20/2017 Comp Metabolic Bvq304 eG FR 83 ml/min/1.73m2 02/20 Comp Metabolic Seu359 BUN 15 mg/dL 02/20/2017 Comp Metabolic Ecu326 B/ C Ratio 16.1 Ratio 02/20/2017 Comp Metabolic Dli555 CA LCIUM 9.1 mg/dL 02/20/2017 Comp Metabolic Dvr883 AL K PHOS 67 U/L 02/20/2017 Comp Metabolic Eey630 T(SGOT) 15 U/L 02/20/2017 Comp Metabolic Ubz926 AL T(SGPT) 16 U/L 02/20/2017 Comp Metabolic Qgr470 BI LI T 0.5 mg/dL 02/20/2017 Comp Metabolic Xjg032 AL BUMIN 4.0 g/dL 02/20/2017 Comp Metabolic Pum882 TP RO 6.4 g/dL 02/20/2017 Comp Metabolic Hpc336 GL OB 2.4 g/dL 02/20/2017 Comp Metabolic Vvc303 A/ G Ratio 1.7 Ratio 02/20/2017 Comp Metabolic Zvp949 Os mo 278 mOsmo 02/20/2017 Tsh Ord6 hTSH II 2.05 uIU/mL 02/20/2017 %Hba1C Ppl882 % HbA1c 58688-2 7.6 % 02/20/2017 %Hba1C Mtm063 Gluc Ave 171 mg/dL 02/20/2017 Vitamin D 25 Oh Sic4712 VITAMIN D, 25 HYDROXY 44.40 ng/mL 12/21/2016 Comp Metabolic Lnl701 NA 131 mEq/L 12/21/2016 Comp Metabolic Ecm856 K 4.2 mEq/L 12/21/2016 Comp Metabolic Ngh255 CL 97 mEq/L 12/21/2016 Comp Metabolic Iru505 CO2 27.0 mEq/L 12/21/2016 Comp Metabolic Iay213 AN ION GAP 11 12/21/2016 Comp Metabolic Pfi430 GL UCOSE 266 mg/dL 12/21/2016 Comp Metabolic Gzb655 Cr eat 0.9 mg/dL 12/21/2016 Comp Metabolic Zeg433 eG FR 88 ml/min/1.73m2 12/21 Comp Metabolic Twu369 BUN 12 mg/dL 12/21/2016 Comp Metabolic Hbg100 B/ C Ratio 13.6 Ratio 12/21/2016 Comp Metabolic Ktt968 CA LCIUM 8.6 mg/dL 12/21/2016 Comp Metabolic Lms166 AL K PHOS 69 U/L 12/21/2016 Comp Metabolic Ect101 T(SGOT) 15 U/L 12/21/2016 Comp Metabolic Isk695 AL T(SGPT) 14 U/L 12/21/2016 Comp Metabolic Kdn387 BI LI T 0.3 mg/dL 12/21/2016 Comp Metabolic Hsj039 AL BUMIN 3.7 g/dL 12/21/2016 Comp Metabolic Yxe812 TP RO 5.9 g/dL 12/21/2016 Comp Metabolic Ist522 GL OB 2.2 g/dL 12/21/2016 Comp Metabolic Vgc305 A/ G Ratio 1.7 Ratio 12/21/2016 Comp Metabolic Pss988 Os mo 272 mOsmo 12/21/2016 Cbc With [...] 34.6 pg 12/21/2016 Cbc With Differential Ord2 [place]% 6.9 % 12/21/2016 Cbc With Differential Ord2 [...] 2.05 K/ul 12/21/2016 Cbc With Differential Ord2 [place] ABS# 0.4 K/ul 12/21/2016 Cbc With Differential Ord2 Eos ABS# 0.2 K/ul 12/21/2016 Cbc With Differential Ord2 Baso ABS# 0.0 K/ul 12/21/2016 Comp Metabolic Vve099 NA 138 mEq/L 09/03/2016 Comp Metabolic Nls011 K 4.5 mEq/L 09/03/2016 Comp Metabolic Rrk332 CL 102 mEq/L 09/03/2016 Comp Metabolic Uvy181 CO2 30.0 mEq/L 09/03/2016 Comp Metabolic Ahu235 AN ION GAP 11 09/03/2016 Comp Metabolic Jbf445 GL UCOSE 113 mg/dL 09/03/2016 Comp Metabolic Kzr823 Cr eat 1.0 mg/dL 09/03/2016 Comp Metabolic Alh227 eG FR 81 ml/min/1.73m2 09/03 Comp Metabolic Poh528 BUN 10 mg/dL 09/03/2016 Comp Metabolic Qmz948 B/ C Ratio 10.5 Ratio 09/03/2016 Comp Metabolic Bql410 CA LCIUM 9.1 mg/dL 09/03/2016 Comp Metabolic Mev822 AL K PHOS 71 U/L 09/03/2016 Comp Metabolic Rwj491 T(SGOT) 18 U/L 09/03/2016 Comp Metabolic Hko155 AL T(SGPT) 17 U/L 09/03/2016 Comp Metabolic Qkk300 BI LI T 0.6 mg/dL 09/03/2016 Comp Metabolic Otl865 AL BUMIN 4.1 g/dL 09/03/2016 Comp Metabolic Tuf198 TP RO 6.4 g/dL 09/03/2016 Comp Metabolic Law116 GL OB 2.3 g/dL 09/03/2016 Comp Metabolic Mdk464 A/ G Ratio 1.8 Ratio 09/03/2016 Comp Metabolic Ukc340 Os mo 276 mOsmo 09/03/2016 Vitamin D 25 Oh Hpz8926 VITAMIN D, 25 HYDROXY 28.23 ng/mL 09/03/2016 [...] 34.4 pg 09/03/2016 Cbc With Differential Ord2 [place]% 8.9 % 09/03/2016 Cbc With Differential Ord2 [...] 3.34 K/ul 09/03/2016 Cbc With Differential Ord2 [place] ABS# 0.7 K/ul 09/03/2016 Cbc With Differential Ord2 Eos ABS# 0.4 K/ul 09/03/2016 Cbc With Differential Ord2 Baso ABS# 0.0 K/ul 09/03/2016 Lipid Ord30 CHOL 120 mg/dL 09/03/2016 Lipid Ord30 HDL 33.0 mg/dl 09/03/2016 Lipid Ord30 TRIG 161 mg/dL 09/03/2016 Lipid Ord30 LDL 55 mg/dL 09/03/2016 Lipid Ord30 C/HDL 3.6 Ratio 09/03/2016 %Hba1C Rdl991 % HbA1c 67763-2 7.5 % 09/03/2016 %Hba1C Vzr036 Gluc Ave 169 mg/dL 09/03/2016 Tsh Ord6 hTSH II 1.50 uIU/mL 05/23/2016 %Hba1C Lac018 % HbA1c 90299-8 7.6 % 05/23/2016 %Hba1C Nmh594 Gluc Ave 171 mg/dL 05/23/2016 Comp Metabolic Sfq061 NA 135 mEq/L 05/23/2016 Comp Metabolic Rvb925 K 4.4 mEq/L 05/23/2016 Comp Metabolic Ldd224 CL 99 mEq/L 05/23/2016 Comp Metabolic Rqt389 CO2 28.0 mEq/L 05/23/2016 Comp Metabolic Dqk585 AN ION GAP 12 05/23/2016 Comp Metabolic Kro761 GL UCOSE 257 mg/dL 05/23/2016 Comp Metabolic Hvx174 Cr eat 0.8 mg/dL 05/23/2016 Comp Metabolic Cvo325 eG FR 95 ml/min/1.73m2 05/23 Comp Metabolic Muh646 BUN 11 mg/dL 05/23/2016 Comp Metabolic Hmf622 B/ C Ratio 13.3 Ratio 05/23/2016 Comp Metabolic Fpd875 CA LCIUM 9.0 mg/dL 05/23/2016 Comp Metabolic Sed003 AL K PHOS 82 U/L 05/23/2016 Comp Metabolic Vvc852 T(SGOT) 21 U/L 05/23/2016 Comp Metabolic Cfd695 AL T(SGPT) 20 U/L 05/23/2016 Comp Metabolic Ncn793 BI LI T 0.3 mg/dL 05/23/2016 Comp Metabolic Olf686 AL BUMIN 4.0 g/dL 05/23/2016 Comp Metabolic Wje353 TP RO 6.4 g/dL 05/23/2016 Comp Metabolic Bow593 GL OB 2.4 g/dL 05/23/2016 Comp Metabolic Ekm568 A/ G Ratio 1.6 Ratio 05/23/2016 Comp Metabolic Hdd602 Os mo 278 mOsmo 05/23/2016 Cbc With [...] 34.5 pg 05/23/2016 Cbc With Differential Ord2 [place]% 6.1 % 05/23/2016 Cbc With Differential Ord2 [...] 2.38 K/ul 05/23/2016 Cbc With Differential Ord2 [place] ABS# 0.4 K/ul 05/23/2016 Cbc With Differential Ord2 Eos ABS# 0.2 K/ul 05/23/2016 Cbc With Differential Ord2 Baso ABS# 0.0 K/ul 05/23/2016 B12 Enj577 B12 597.00 pg/ml 05/23/2016 Metabolic Ord15 NA [...] 0.92 uIU/mL 07/29/2015 Vitamin D 25 Oh Age3810 VITAMIN D, 25 HYDROXY 26.93 ng/mL 07/29/2015 %Hba1C Czj544 % HbA1c 39495-2 8.8 % 07/29/2015 %Hba1C Bji677 Gluc Ave 206 mg/dL 07/29/2015 Cbc With [...] Ord2 RDW 14.9 % 07/29/2015 Comp Metabolic Izo644 NA 138 mEq/L 07/29/2015 Comp Metabolic Rkd020 K 4.4 mEq/L 07/29/2015 Comp Metabolic Bqe554 CL 102 mEq/L 07/29/2015 Comp Metabolic Gjb737 CO2 28.0 mEq/L 07/29/2015 Comp Metabolic Xao804 AN ION GAP 12 07/29/2015 Comp Metabolic Ktc758 GL UCOSE 261 mg/dL 07/29/2015 Comp Metabolic Arq340 Cr eat 1.0 mg/dL 07/29/2015 Comp Metabolic Uwb662 eG FR 77 ml/min/1.73m2 07/29 Comp Metabolic Wgq722 BUN 13 mg/dL 07/29/2015 Comp Metabolic Afj582 B/ C Ratio 13.0 Ratio 07/29/2015 Comp Metabolic Ale100 CA LCIUM 9.1 mg/dL 07/29/2015 Comp Metabolic Orm531 AL K PHOS 64 U/L 07/29/2015 Comp Metabolic Ska293 T(SGOT) 20 U/L 07/29/2015 Comp Metabolic Mbi383 AL T(SGPT) 22 U/L 07/29/2015 Comp Metabolic Nys632 BI LI T 0.4 mg/dL 07/29/2015 Comp Metabolic Scx200 AL BUMIN 4.0 g/dL 07/29/2015 Comp Metabolic Jyk461 TP RO 6.1 g/dL 07/29/2015 Comp Metabolic Cop518 GL OB 2.1 g/dL 07/29/2015 Comp Metabolic Eav136 A/ G Ratio 1.9 Ratio 07/29/2015 Comp Metabolic Izs437 Os mo 285 mOsmo 07/29/2015 Cbc With [...] Ord2 RDW 13.1 % 05/06/2015 Comp Metabolic Rmi504 NA 134 mEq/L 05/06/2015 Comp Metabolic Ggs765 K 4.4 mEq/L 05/06/2015 Comp Metabolic Rpz481 CL 98 mEq/L 05/06/2015 Comp Metabolic Nfo696 CO2 29.0 mEq/L 05/06/2015 Comp Metabolic Xte947 AN ION GAP 11 05/06/2015 Comp Metabolic Xay504 GL UCOSE 321 mg/dL 05/06/2015 Comp Metabolic Rsp922 Cr eat 1.0 mg/dL 05/06/2015 Comp Metabolic Wyt015 eG FR 78 ml/min/1.73m2 05/06 Comp Metabolic Eyk205 BUN 20 mg/dL 05/06/2015 Comp Metabolic Kgn504 B/ C Ratio 20.4 Ratio 05/06/2015 Comp Metabolic Ait466 CA LCIUM 9.5 mg/dL 05/06/2015 Comp Metabolic Drw533 AL K PHOS 62 U/L 05/06/2015 Comp Metabolic Ved569 T(SGOT) 21 U/L 05/06/2015 Comp Metabolic Pbx659 AL T(SGPT) 37 U/L 05/06/2015 Comp Metabolic Xwa376 BI LI T 0.4 mg/dL 05/06/2015 Comp Metabolic Sqm814 AL BUMIN 3.8 g/dL 05/06/2015 Comp Metabolic Bej220 TP RO 6.1 g/dL 05/06/2015 Comp Metabolic Fzs048 GL OB 2.3 g/dL 05/06/2015 Comp Metabolic Lsr789 A/ G Ratio 1.7 Ratio 05/06/2015 Comp Metabolic Yst900 Os mo 283 mOsmo 05/06/2015 Tsh Ord6 hTSH II 1.65 uIU/mL 02/18/2015 B12 Wsz524 B12 605.00 pg/ml 02/18/2015 %Hba1C Iio915 % HbA1c 48857-8 8.3 % 02/18/2015 %Hba1C Jdj660 Gluc Ave 192 mg/dL 02/18/2015 Cbc With [...] Ord2 RDW 13.9 % 02/17/2015 Comp Metabolic Ngv031 NA 137 mEq/L 02/17/2015 Comp Metabolic Rpu293 K 4.4 mEq/L 02/17/2015 Comp Metabolic Ken099 CL 100 mEq/L 02/17/2015 Comp Metabolic Whl538 CO2 31.0 mEq/L 02/17/2015 Comp Metabolic Veq398 AN ION GAP 10 02/17/2015 Comp Metabolic Ysw560 GL UCOSE 307 mg/dL 02/17/2015 Comp Metabolic Mjl998 Cr eat 1.0 mg/dL 02/17/2015 Comp Metabolic Yre950 eG FR 74 ml/min/1.73m2 02/17 Comp Metabolic Vbw451 BUN 22 mg/dL 02/17/2015 Comp Metabolic Tso984 B/ C Ratio 21.4 Ratio 02/17/2015 Comp Metabolic Nik153 CA LCIUM 9.5 mg/dL 02/17/2015 Comp Metabolic Bqr153 AL K PHOS 78 U/L 02/17/2015 Comp Metabolic Qcz983 T(SGOT) 18 U/L 02/17/2015 Comp Metabolic Cai876 AL T(SGPT) 32 U/L 02/17/2015 Comp Metabolic Xte396 BI LI T 0.5 mg/dL 02/17/2015 Comp Metabolic Uus101 AL BUMIN 4.3 g/dL 02/17/2015 Comp Metabolic Tir030 TP RO 6.7 g/dL 02/17/2015 Comp Metabolic Uwh917 GL OB 2.4 g/dL 02/17/2015 Comp Metabolic Haf646 A/ G Ratio 1.8 Ratio 02/17/2015 Comp Metabolic Jzj976 Os mo 289 mOsmo 02/17/2015 Review of [...] smoking 02/17/2015 Respiratory cough 2014 Respiratory dyspnea 07/0 04/2015 Genitourinary/Nephrology No dysuria 02/17/2015 Genitourinary/Nephrology No hematuria 02/17/2015 Musculoskeletal No back pain 02/17/2015 Musculoskeletal stiffness 02/17/2015 Dermatologic No rash 04/2015 Dermatologic No sores Neurologic dizziness 04/2015 Neurologic gait abnormality 02/17/2015 Psychiatric anxiety 070 04/2015 Psychiatric No depression 02/17/2015 Respiratory daytime [...] benign 10/17/2018 None Full Exam - General 1995 Lymphatic neck nodes Overall: posterior cervical chain [...] accomodation 10/02/2017 None Full Exam - General 1995 Ears/Nose/Throat [...] accomodation 07/23/2017 None Full Exam - General 1995 Ears/Nose/Throat lips/teeth/gingiva Overall: benign lips 07/23/2017 None [...] inspection of skin Location: face 03/07/2015 on congregation, cheeks,actinic keratosis with irritation on left cheek - left congregation - croptherapy on these two lesions - [...] Procedure Codes Date THER/PROPH/DIAG INJ SC/IM CPT-4: 52539 03/04/2019 THER/PROPH/DIAG INJ SC/IM CPT-4: 61077 02/16/2019 THER/PROPH/DIAG INJ SC/IM CPT-4: 80774 01/30/2019 THER/PROPH/DIAG INJ SC/IM CPT-4: 04543 01/16/2019 THER/PROPH/DIAG INJ SC/IM CPT-4: 25749 01/01/2019 THER/PROPH/DIAG INJ SC/IM CPT-4: 14616 12/17/2018 THER/PROPH/DIAG INJ SC/IM CPT-4: 61793 12/02/2018 THER/PROPH/DIAG INJ SC/IM CPT-4: 48588 11/18/2018 THER/PROPH/DIAG INJ SC/IM CPT-4: 56736 11/04/2018 THER/PROPH/DIAG INJ SC/IM CPT-4: 73358 10/14/2018 THER/PROPH/DIAG INJ SC/IM CPT-4: 26205 10/03/2018 THER/PROPH/DIAG INJ SC/IM CPT-4: 57103 09/23/2018 THER/PROPH/DIAG INJ SC/IM CPT-4: 72601 09/02/2018 THER/PROPH/DIAG INJ SC/IM CPT-4: 63433 08/21/2018 THER/PROPH/DIAG INJ SC/IM CPT-4: 14178 08/08/2018 THER/PROPH/DIAG INJ SC/IM CPT-4: 29195 07/28/2018 THER/PROPH/DIAG INJ SC/IM CPT-4: 39031 07/16/2018 THER/PROPH/DIAG INJ SC/IM CPT-4: 65245 07/02/2018 PPPS, SUBSEQ VISIT CPT- 4: G0439 06/30/2018 THER/PROPH/DIAG INJ SC/IM CPT-4: 48088 06/24/2018 THER/PROPH/DIAG INJ SC/IM CPT-4: 87389 06/13/2018 ADMIN INFLUENZA VIRU S VAC CPT-4: G0008 06/06/2018 FLU VACC PRSV FREE I NC ANTIG CPT-4: 68130 06/06/2018 THER/PROPH/DIAG INJ SC/IM CPT-4: 24916 06/05/2018 THER/PROPH/DIAG INJ SC/IM CPT-4: 50562 05/30/2018 THER/PROPH/DIAG INJ SC/IM CPT-4: 37692 05/22/2018 THER/PROPH/DIAG INJ SC/IM CPT-4: 97577 05/12/2018 THER/PROPH/DIAG INJ SC/IM CPT-4: 21310 05/02/2018 THER/PROPH/DIAG INJ SC/IM CPT-4: 94520 04/24/2018 THER/PROPH/DIAG INJ SC/IM CPT-4: 13347 04/17/2018 KETOROLAC TROMETHAMI NE INJ CPT-4: J1885 03/07/2018 URINALYSIS NONAUTO W /O SCOPE CPT-4: 83461 03/07/2018 THER/PROPH/DIAG INJ SC/IM CPT-4: 56970 02/20/2018 TRIAMCINOLONE ACET I [place] NOS CPT-4: J3301 01/30/2018 THER/PROPH/DIAG INJ SC/IM CPT-4: 81862 01/17/2018 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-[address]: 725561362 CPT-4: G0436 04/25/2017 ADMIN INFLUENZA VIRU S VAC CPT-4: G0008 04/25/2017 ADMIN PNEUMOCOCCAL V ACCINE SNOMED CT: 01266494 CPT-4: G0009 04/25/2017 PNEUMOCOCCAL VACC [address]: 84889474 CPT-4: 56764 04/25/2017 FLU VACC PRSV FREE I NC ANTIG CPT-4: 62466 04/25/2017 ADMIN INFLUENZA VIRU S VAC CPT-4: G0008 05/22/2016 FLU VACC 4 TELLY 3 YRS PLUS IM Formatting Model/CDA Sections, Assigned to/Angela Clemons SNOMED CT: 84387680 CPT-4: 44995Drhotms 05/22/2016 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-[address]: 937957480 CPT-4: G0436 11/25/2015 URINALYSIS NONAUTO W /O SCOPE CPT-4: 85444 05/09/2015 TRIAMCINOLONE ACET I [place] NOS CPT-4: J3301 04/12/2015 DESTRUCT PREMALG LESION CPT-4: 20518 03/07/2015 DESTRUCT PREMALG LES 2-14 CPT-4: 27376 03/07/2015 REMOVE IMPACTED EAR WAX UNI CPT-4: 68788 12/31/2014 THER/PROPH/DIAG INJ SC/IM CPT-4: 03598 12/23/2014 TRIAMCINOLONE ACET I [place] NOS CPT-4: J3301 12/23/2014 Vital Signs Date Vital 03/03/2019 Blood Pressure 1: 150/72 Code: 8480-6 BMI: 20.6 Code: 72746-5 Heart Rate 1: 63 bpm Height: 5'11" SpO2: 100% Weight: 147 lbs 8 oz 12/02/2018 Blood Pressure 1: 140/70 Code: 8480-6 BMI: 21.9 Code: 31765-7 Heart Rate 1: 61 bpm Height: 5'11" SpO2: 94% Weight: 157 lbs 10/17/2018 Blood Pressure 1: 124/54 Code: 8480-6 BMI: 21.9 Code: 92506-6 Heart Rate 1: 64 bpm Height: 5'11" SpO2: 93% Weight: 157 lbs 09/02/2018 Blood Pressure 1: 140/80 Code: 8480-6 BMI: 21.2 Code: 65944-3 Heart Rate 1: 68 bpm Height: 5'11" SpO2: 97% Weight: 152 lbs 06/30/2018 BMI: 21.8 Code: 45345-4 Height: 5'11" Weight: 156 lbs 06/06/2018 Blood Pressure 1: 128/76 Code: 8480-6 BMI: 22.0 Code: 46137-0 Heart Rate 1: 81 bpm Height: 5'11" SpO2: 92% Weight: 158 lbs 04/04/2018 Blood Pressure 1: 124/70 Code: 8480-6 BMI: 20.8 Code: 21218-7 Heart Rate 1: 65 bpm Height: 5'11" SpO2: 95% Weight: 149 lbs 03/07/2018 Blood Pressure 1: 148/70 Code: 8480-6 BMI: 21.2 Code: 34961-4 Heart Rate 1: 66 bpm Height: 5'11" SpO2: 94% Weight: 152 lbs 02/20/2018 Blood Pressure 1: 134/58 Code: 8480-6 BMI: 20.5 Code: 24673-6 Heart Rate 1: 61 bpm Height: 5'11" SpO2: 92% Weight: 147 lbs 01/30/2018 Blood Pressure 1: 158/68 Code: 8480-6 BMI: 21.5 Code: 02057-4 Heart Rate 1: 71 bpm Height: 5'11" SpO2: 92% Weight: 154 lbs 01/14/2018 Blood Pressure 1: 156/70 Code: 8480-6 Height: Weight: 01/13/2018 Blood Pressure 1: 148/62 Code: 8480-6 BMI: 20.9 Code: 57261-5 Heart Rate 1: 54 bpm Height: 5'11" SpO2: 97% Weight: 150 lbs 11/19/2017 Blood Pressure 1: 150/60 Code: 8480-6 BMI: 21.8 Code: 61234-9 Heart Rate 1: 63 bpm Height: 5'11" SpO2: 98% Weight: 156 lbs 10/02/2017 Blood Pressure 1: 168/60 Code: 8480-6 BMI: 21.9 Code: 94102-6 Heart Rate 1: 52 bpm Height: 5'11" SpO2: 97% Weight: 157 lbs 07/23/2017 Blood Pressure 1: 170/70 Code: 8480-6 BMI: 21.8 Code: 65916-0 Heart Rate 1: 65 bpm Height: 5'11" SpO2: 98% Weight: 156 lbs 04/25/2017 Blood Pressure 1: 138/60 Code: 8480-6 BMI: 21.6 Code: 96146-6 Heart Rate 1: 55 bpm Height: 5'11" SpO2: 93% Weight: 155 lbs 02/19/2017 Blood Pressure 1: 138/64 Code: 8480-6 BMI: 21.3 Code: 28960-9 Heart Rate 1: 52 bpm Height: 5'11" SpO2: 96% Weight: 152 lbs 8 oz 01/21/2017 Blood Pressure 1: 160/68 Code: 8480-6 BMI: 21.3 Code: 63481-3 Heart Rate 1: 62 bpm Height: 5'11" SpO2: 96% Weight: 153 lbs 12/20/2016 Blood Pressure 1: 124/66 Code: 8480-6 BMI: 21.5 Code: 41770-3 Height: 5'11" Weight: 154 lbs 08/23/2016 Blood Pressure 1: 142/52 Code: 8480-6 BMI: 21.2 Code: 57861-1 Heart Rate 1: 54 bpm Height: 5'11" SpO2: 96% Weight: 152 lbs 05/22/2016 Blood Pressure 1: 130/76 Code: 8480-6 BMI: 21.5 Code: 53862-7 Heart Rate 1: 78 bpm Height: 5'11" SpO2: 92% Weight: 154 lbs 02/24/2016 Blood Pressure 1: 128/80 Code: 8480-6 BMI: 21.2 Code: 64870-1 Heart Rate 1: 74 bpm Height: 5'11" SpO2: 96% Weight: 152 lbs 01/27/2016 Blood Pressure 1: 144/60 Code: 8480-6 BMI: 21.2 Code: 26931-0 Heart Rate 1: 74 bpm Height: 5'11" SpO2: 97% Weight: 152 lbs 11/25/2015 Blood Pressure 1: 110/52 Code: 8480-6 BMI: 21.9 Code: 24272-5 Heart Rate 1: 65 bpm Height: 5'11" SpO2: 92% Weight: 157 lbs 07/28/2015 Blood Pressure 1: 138/62 Code: 8480-6 BMI: 21.8 Code: 85665-9 Heart Rate 1: 63 bpm Height: 5'11" SpO2: 91% Weight: 156 lbs 05/26/2015 Blood Pressure 1: 120/58 Code: 8480-6 BMI: 21.5 Code: 80416-7 Heart Rate 1: 99 bpm Height: 5'11" SpO2: 96% Weight: 154 lbs 05/06/2015 Blood Pressure 1: 120/58 Code: 8480-6 BMI: 21.2 Code: 26092-3 Heart Rate 1: 66 bpm Height: 5'11" SpO2: 96% Weight: 152 lbs 04/25/2015 Blood Pressure 1: 136/62 Code: 8480-6 BMI: 21.2 Code: 22265-2 Heart Rate 1: 63 bpm Height: 5'11" SpO2: 97% Weight: 152 lbs 04/12/2015 Blood Pressure 1: 160/58 Code: 8480-6 BMI: 21.6 Code: 52305-0 Heart Rate 1: 62 bpm Height: 5'11" Weight: 155 lbs 03/24/2015 Blood Pressure 1: 138/68 Code: 8480-6 BMI: 22.0 Code: 36316-4 Heart Rate 1: 65 bpm Height: 5'11" SpO2: 96% Weight: 158 lbs 03/07/2015 Blood Pressure 1: 116/52 Code: 8480-6 BMI: 22.2 Code: 94199-9 Heart Rate 1: 64 bpm Height: 5'11" SpO2: 97% Weight: 159 lbs 02/17/2015 Blood Pressure 1: 148/58 Code: 8480-6 BMI: 21.3 Code: 73280-4 Heart Rate 1: 63 bpm Height: 5'11" SpO2: 97% Weight: 153 lbs 12/31/2014 Blood Pressure 1: 100/60 Code: 8480-6 BMI: 21.8 Code: 25552-6 Heart Rate 1: 68 bpm Height: 5'11" Weight: 156 lbs 12/23/2014 Blood Pressure 1: 148/64 Code: 8480-6 BMI: 21.9 Code: 94538-0 Heart Rate 1: 64 bpm Height: 5'11" [...] 04/04/2018 in his feet occasionally hypertension Quality dariel onic 04/04/2018 None hypertension Quality angely leach [...] daily 11/25/2015 None cough Location in the [facility] 11/25/2015 None cough Quality acute 11/25/2015 None [...] Encounters Encounter Performer Loca tion Codes Date 01971 EST. P ATIENT, LEVEL IV Diagnosis: Chronic obstructive pulmonary disease, unspecified[ICD10: J44.9] Diagnosis: Mixed hyperlipidemia[ICD10: E78.2] Diagnosis: Type 2 diabetes mellitus with hyperglycemia[ICD10: E11.65] Diagnosis: Testicular dysfunction, unspecified[ICD10: E29.9] Diagnosis: Abnormal weight loss[ICD10: R63.4] Karmen Ash MD, [facility] CPT-4: 54503 03/03/2019 [id number]) 46035 EST. P ATIENT, LEVEL IV Diagnosis: Chronic obstructive pulmonary disease, unspecified[ICD10: J44.9] Diagnosis: Type 2 diabetes mellitus with hyperglycemia[ICD10: E11.65] Diagnosis: Testicular dysfunction, unspecified[ICD10: E29.9] Diagnosis: Other insomnia[ICD10: G47.09] Karmen Ash MD, [facility] CPT- 4: 77623 12/02/2018 ([id number] 37317 EST. P ATIENT, LEVEL III Diagnosis: Orthostatic hypotension[ICD10: I95.1] Diagnosis: Low back pain[ICD10: M54.5] Diagnosis: Unsteadiness on feet[ICD10: R26.81] Karmen Ash MD, [facility] CPT-4: 27517 10/17/2018 ([id number]) 57145 EST. P ATIENT, LEVEL IV Diagnosis: Essential (primary) hypertension[ICD10: I10] Diagnosis: Chronic obstructive pulmonary disease, unspecified[ICD10: J44.9] Diagnosis: Type 2 diabetes mellitus with hyperglycemia[ICD10: E11.65] Diagnosis: Vitamin D deficiency, unspecified[ICD10: E55.9] Diagnosis: Mixed hyperlipidemia[ICD10: E78.2] Diagnosis: Testicular dysfunction, unspecified[ICD10: E29.9] Karmen Ash MD, [facility] CPT-4: 01029 09/02/2018 ([id number]) 50786 EST. P ATIENT, LEVEL IV Diagnosis: Cellulitis of face[ICD10: L03.211] Diagnosis: Type 2 diabetes mellitus without complications[ICD10: E11.9] Diagnosis: Essential (primary) hypertension[ICD10: I10] Diagnosis: Encounter for immunization[ICD10: Z23] Karmen Ash MD, [facility] CPT-4: 81864 06/06/2018 ([id number]) 73561 EST. P ATIENT, LEVEL IV Diagnosis: Essential (primary) hypertension[ICD10: I10] Diagnosis: Chronic obstructive pulmonary disease, unspecified[ICD10: J44.9] Diagnosis: Testicular dysfunction, unspecified[ICD10: E29.9] Diagnosis: Type 2 diabetes mellitus with hyperglycemia[ICD10: E11.65] Karmen Ash MD, [facility] CPT-4: 92590 04/04/2018 ([id number]) 32734 EST. P ATIENT, LEVEL III Diagnosis: Low back pain[ICD10: M54.5] Diagnosis: Dysuria[ICD10: R30.0] Karmen Ash MD, [facility] CPT-4: 98354 03/07/2018 ([id number]) 71860 EST. P ATIENT, LEVEL IV Diagnosis: Essential (primary) hypertension[ICD10: I10] Diagnosis: Chronic obstructive pulmonary disease, unspecified[ICD10: J44.9] Diagnosis: Abnormal weight loss[ICD10: R63.4] Diagnosis: Low back pain[ICD10: M54.5] Diagnosis: Testicular dysfunction, unspecified[ICD10: E29.9] Diagnosis: Type 2 diabetes mellitus with hyperglycemia[ICD10: E11.65] Karmen Ash MD, [facility] CPT-4: 09778 02/20/2018 ([id number]) 39543 EST. P ATIENT, LEVEL III Diagnosis: Chronic obstructive pulmonary disease with (acute) exacerbation[ICD10: J44.1] Karmen Ash MD, [facility] CPT-4: 69452 01/30/2018 50531 EST. PATIENT, LEVEL II Diagnosis: Insect bite (nonvenomous), left lower leg, initial encounter[ICD10: S80.862A] Karmen Ash MD, [facility] CPT-4: 66798 01/14/2018 ([id number]) 98996 EST. P ATIENT, LEVEL IV Diagnosis: Type 2 diabetes mellitus with hyperglycemia[ICD10: E11.65] Diagnosis: Chronic obstructive pulmonary disease, unspecified[ICD10: J44.9] Diagnosis: Other fatigue[ICD10: R53.83] Karmen Ash MD, [facility] CPT- 4: 72598 01/13/2018 ([id number]) 14792 EST. P ATIENT, LEVEL IV Diagnosis: Type 2 diabetes mellitus with hyperglycemia[ICD10: E11.65] Diagnosis: Vitamin D deficiency, unspecified[ICD10: E55.9] Diagnosis: Essential (primary) hypertension[ICD10: I10] Diagnosis: Abdominal distension (gaseous)[ICD10: R14.0] Diagnosis: Drug induced constipation[ICD10: K59.03] Karmen Ash MD, [facility] CPT-4: 76191 11/19/2017 50231 EST. PATIENT, LEVEL IV Diagnosis: Low back pain[ICD10: M54.5] Diagnosis: Chronic obstructive pulmonary disease, unspecified[ICD10: J44.9] Brunilda Ash MD, [facility] CPT-4: 05601 10/02/2017 ([id number]) 25461 EST. P ATIENT, LEVEL IV Diagnosis: Essential (primary) hypertension[ICD10: I10] Diagnosis: Type 2 diabetes mellitus with hyperglycemia[ICD10: E11.65] Diagnosis: Vitamin D deficiency, unspecified[ICD10: E55.9] Diagnosis: Mixed hyperlipidemia[ICD10: E78.2] Karmen Ash MD, [facility] CPT-4: 23982 07/23/2017 ([id number]) 43368 EST. P ATIENT, LEVEL IV Diagnosis: Essential (primary) hypertension[ICD10: I10] Diagnosis: Type 2 diabetes mellitus with hyperglycemia[ICD10: E11.65] Diagnosis: Chronic obstructive pulmonary disease, unspecified[ICD10: J44.9] Diagnosis: Nicotine dependence, unspecified, uncomplicated[ICD10: F17.200] Diagnosis: Encounter for immunization[ICD10: Z23] Karmen Ash MD, [facility] CPT-4: 87556 04/25/2017 ([id number]) 58882 EST. P ATIENT, LEVEL IV Diagnosis: Type 2 diabetes mellitus with hyperglycemia[ICD10: E11.65] Diagnosis: Essential (primary) hypertension[ICD10: I10] Diagnosis: Anemia, unspecified[ICD10: D64.9] Karmen Ash MD, [facility] CPT- 4: 99118 02/19/2017 ([id number]) 42025 EST. P ATIENT, LEVEL IV Diagnosis: Slow transit constipation[ICD10: K59.01] Diagnosis: Gastro-esophageal reflux disease without esophagitis[ICD10: K21.9] Diagnosis: Essential (primary) hypertension[ICD10: I10] Karmen Ash MD, [facility] CPT-4: 58619 01/21/2017 ([id number]) 67959 EST. P ATIENT, LEVEL IV Diagnosis: Type 2 diabetes mellitus with hyperglycemia[ICD10: E11.65] Diagnosis: Vitamin D deficiency, unspecified[ICD10: E55.9] Diagnosis: Essential (primary) hypertension[ICD10: I10] Diagnosis: Chronic obstructive pulmonary disease, unspecified[ICD10: J44.9] Karmen Ash MD, [facility] CPT-4: 06043 12/20/2016 ([id number]) 53482 EST. P ATIENT, LEVEL IV Diagnosis: Type 2 diabetes mellitus with hyperglycemia[ICD10: E11.65] Diagnosis: Essential (primary) hypertension[ICD10: I10] Diagnosis: Mixed hyperlipidemia[ICD10: E78.2] Diagnosis: Vitamin D deficiency, unspecified[ICD10: E55.9] Karmen Ash MD, [facility] CPT-4: 12712 08/23/2016 ([id number]) 42627 EST. P ATIENT, LEVEL IV Diagnosis: Type 2 diabetes mellitus with hyperglycemia[ICD10: E11.65] Diagnosis: Essential (primary) hypertension[ICD10: I10] Diagnosis: Chronic obstructive pulmonary disease, unspecified[ICD10: J44.9] Karmen Ash MD, [facility] CPT-4: 26580 05/22/2016 ([id number]) 99981 EST. P ATIENT, LEVEL III Diagnosis: Dysuria[ICD10: R30.0] Diagnosis: Essential (primary) hypertension[ICD10: I10] Karmen Ash MD, [facility] CPT-4: 25137 02/24/2016 ([id number]) 37034 EST. P ATIENT, LEVEL IV Diagnosis: Gastro-esophageal reflux disease without esophagitis[ICD10: K21.9] Diagnosis: Slow transit constipation[ICD10: K59.01] Diagnosis: Type 2 diabetes mellitus with hyperglycemia[ICD10: E11.65] Karmen Ash MD, [facility] CPT-4: 33793 01/27/2016 ([id number]) 17683 EST. P ATIENT, LEVEL IV Diagnosis: Essential (primary) hypertension[ICD10: I10] Diagnosis: Type 2 diabetes mellitus with hyperglycemia[ICD10: E11.65] Diagnosis: Vitamin D deficiency, unspecified[ICD10: E55.9] Diagnosis: Chronic obstructive pulmonary disease, unspecified[ICD10: J44.9] Diagnosis: Mixed hyperlipidemia[ICD10: E78.2] Diagnosis: Tobacco use[ICD10: Z72.0] Karmen Ash MD, [facility] CPT- 4: 18332 11/25/2015 ([id number]) 88340 EST. P ATIENT, LEVEL IV Diagnosis: Type 2 diabetes mellitus with hyperglycemia[ICD10: E11.65] Diagnosis: Essential (primary) hypertension[ICD10: I10] Diagnosis: Vitamin D deficiency, unspecified[ICD10: E55.9] Karmen Ash MD, [facility] CPT-4: 02776 07/28/2015 ([id number]) 37110 EST. P ATIENT, LEVEL III Diagnosis: Type 2 diabetes mellitus with hyperglycemia[ICD10: E11.65] Diagnosis: Essential (primary) hypertension[ICD10: I10] Violeta Ash MD, [facility] CPT-4: 44926 05/26/2015 ([id number]) 85348 EST. P ATIENT, LEVEL III Diagnosis: DIABETES TYPE II[ICD9: 250.00] Diagnosis: COPD (chronic obstructive pulmonary disease)[ICD9: 496] Diagnosis: ESSENTIAL HYPERTENSION[ICD9: 401.9] Diagnosis: Cough[ICD9: 786.2] Violeta Ash MD, [facility] CPT-4: 33290 05/06/2015 ([id number]) 84346 EST. P ATIENT, LEVEL III Diagnosis: COPD (chronic obstructive pulmonary disease)[ICD9: 496] Diagnosis: DIABETES TYPE II[ICD9: 250.00] Diagnosis: Muscle ache[ICD9: 729.1] Karmen Ash MD, [facility] CPT- 4: 20203 04/25/2015 ([id number]) 97655 EST. P ATIENT, LEVEL III Diagnosis: ACTINIC KERATOSIS[ICD9: 702.0] Diagnosis: COPD (chronic obstructive pulmonary disease)[ICD9: 496] Diagnosis: DIABETES TYPE II[ICD9: 250.00] Diagnosis: ACUTE URI[ICD9: 465.9] Violeta Ash MD, [facility] CPT-4: 33945 04/12/2015 ([id number]) 28244 EST. P ATIENT, LEVEL III Diagnosis: DIABETES TYPE II[ICD9: 250.00] Violeta Ash MD, [facility] CPT-4: 02183 03/24/2015 ([id number]) 05846 EST. P ATIENT, LEVEL IV Diagnosis: DIABETES TYPE II[ICD9: 250.00] Diagnosis: Hypoglycemia[ICD9: 251.2] Diagnosis: Skin texture changes[ICD9: 782.8] Violeta Ash MD, [facility] CPT-4: 36270 03/07/2015 ([id number]) 53143 EST. P ATIENT, LEVEL IV Diagnosis: COPD (chronic obstructive pulmonary disease)[ICD9: 496] Diagnosis: Fatigue[ICD9: 780.79] Diagnosis: Insulin dependent diabetes mellitus[ICD9: 250.00] Diagnosis: Unsteady gait[ICD9: 781.2] Maame Ash MD, [facility] CPT-4: 66942 02/17/2015 ([id number]) 63615 EST. P ATIENT, LEVEL IV Diagnosis: BPPV (benign paroxysmal positional vertigo)[ICD9: 386.11] Diagnosis: Impacted cerumen[ICD9: 380.4] Diagnosis: ESSENTIAL HYPERTENSION[ICD9: 401.9] Diagnosis: Insulin dependent diabetes mellitus[ICD9: 250.00] [facility] CPT-4: 83354 12/23/2014 ([id number]) OFFICE [facility], [facility] - LEVEL 4 Diagnosis: Insulin dependent diabetes mellitus[ICD9: 250.00] Diagnosis: BPPV (benign paroxysmal positional vertigo)[ICD9: 386.11] Diagnosis: COPD (chronic obstructive pulmonary disease)[ICD9: 496] Diagnosis: Tobacco abuse[ICD9: 305.1] Diagnosis: Osteoarthritis[ICD9: 715.90] [facility] CPT- 4: 39638 12/09/2014 Plan of Care Planned Activity Notes C odes Status Date Patient Education: Patient Medication Summary Completed 03/05/2019 Care Plan: B12 add to blood from 03/04 Pending 03/05/2019 Appointment: Injection 03/04/2019 Patient Education: Patient [...] check level 03/03/2019 Appointment: Karmen Espinal WPtel: [facility] [phone] (30 min) [facility] 03/03/2019 Patient Education: Patient Medication Summary [...] as directed 12/02/2018 Appointment: Karmen Espinal WPtel: [facility]2 [phone] (30 min) Complex 12/02/2018 Patient Education: Patient Medication Summary Completed 12/02/2018 Patient Education: Diabetes Completed 12/02/2018 Appointment: Injection 11/18/2018 Patient Education: Patient Medication Summary Completed 11/18/2018 Appointment: Injection 11/04/2018 Patient Education: Patient Medication Summary Completed 11/04/2018 Appointment: Karmen Espinal WPtel: [phone] (30 min) Complex 10/21/2018 Visit Plan: [...] a walker 10/17/2018 Appointment: Karmen Espinal WPtel: [phone] [phone] (30 min) Complex 10/17/2018 Patient Education: Patient Medication Summary Completed 10/17/2018 Patient Education: Back Pain Completed 10/17/2018 Appointment: Injection 10/14/2018 Patient Education: Patient Medication Summary Completed 10/14/2018 Appointment: Injection 10/03/2018 Patient Education: Patient Medication Summary Completed 10/03/2018 Appointment: Injection 09/23/2018 Patient Education: Patient Medication Summary Completed 09/23/2018 Visit Plan: Hypertension - well izzy traore - continue with current medications, continue [...] to medications. 09/02/2018 Appointment: Karmen Espinal WPtel: [facility] [phone] (15 min) Moderate 09/02/2018 Patient Education: Patient [...] Visit Plan: Medicare Exam - today w lyssa discussed the patients past history, immunizations, preventative [...] care surrogate. 06/30/2018 Appointment: Karmen Espinal WPtel: [facility]4 [place] [phone] [facility] 06/30/2018 Patient [...] pain. 06/06/2018 Appointment: Karmen Espinal WPtel: [phone] [phone] (15 min) Moderate 06/06/2018 Patient Education: Patient [...] months 04/04/2018 Appointment: K[facility] Espinal WPtel: [phone] [phone] [place] (15 min) Moderate 04/04/2018 Patient Education: Patient Medication Summary Completed 04/04/2018 Care Plan: Cbc With Differential Pending 04/04/2018 Care Plan: Testosterone repeat in 2 months Pending 04/04/2018 Appointment: Karmen Espinal WPtel: [phone] [phone] [place] (15 min) Moderate 03/25/2018 Visit Plan: Low back pain -history of kidney stone-UA negative today -increase fluids and call if pain does not resolve or if any worse. 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 01/30/2018 Appointment: Karmen Espinal WPtel: [phone] (15 min) Moderate 01/30/2018 Patient Education: Patient Medication Summary Completed 01/30/2018 Appointment: Karmen Espinal WPtel: [phone] (15 min) Moderate 01/28/2018 Appointment: Injection 01/17/2018 Patient Education: Patient Medication Summary Completed 01/17/2018 Visit Plan: Cellulitis - start oral antibiotics as directed, return to clinic as previously directed, call for acute change in symptoms, worsening redness, warmth, discharge. 01/14/2018 Appointment: Karmen Espinal WPtel: [phone] (10 min) Simple 01/14/2018 Patient Education: Patient [...] less controlled. 01/13/2018 Appointment: Karmen Espinal WPtel: [phone] (15 min) Moderate 01/13/2018 Patient Education: Patient Medication Summary Completed 01/13/2018 Referral: Hugo Villatoro [place] [employer]:[phone] Patient's informed. Referral info ned monroy. [...] change in blood pressure readings at home. Iqwypewo-rqxfvv-jcled to see Dr Villatoro Constipation-start linzess daily 11/19/2017 Appointment: Karmen Espinal WPtel: [phone] (30 min) Complex 11/19/2017 Patient Education: Patient Medication Summary Completed 11/19/2017 Care Plan: Referral Order bloating, nausea SNOMED-CT : [id number] Pending 11/19/2017 Visit Plan: Low back pain- [...] acute changes. 10/02/2017 Appointment: Brunilda Maravilla WPtel: [address] [place], [place] [phone] (15 min) Moderate 10/02/2017 Patient Education: Patient [...] less controlled. 07/23/2017 Appointment: Karmen Espinal WPtel: [phone] [facility] [phone] (30 min) Complex 07/23/2017 Patient Education: Patient [...] pack/year history 04/25/2017 Appointment: Karmen Espinal WPtel: [phone] [facility] [phone] (30 min) Complex 04/25/2017 Patient Education: Patient [...] readings are starting to become less controlled. Wahcdi-dsxmejr-dmklu labs 02/19/2017 Appointment: Karmen Espinal WPtel: [phone] [facility] [phone] (30 min) Complex 02/19/2017 Patient Education: Patient [...] improved on this regimen. REFER TO DR DNOOHUE FOR EGD/COLONOSCOPY DUE TO INCREASING SYMPTOMS-WEIGHT LOSS-DECREASED APPETITE. PATIENT AND STATES IT HAS BEEN MORE THAN 10 YEARS SINCE SCOPES. HTN- elevated today-monitor at home-follow up in 1 month 01/21/2017 Appointment: Karmen Espinal WPtel: [facility] [phone] (30 min) Complex 01/21/2017 Patient Education: Patient Medication Summary Completed 01/21/2017 Patient Education: Smoking and Tobacco Addiction Completed 01/21/2017 Patient Education: Hypertension Completed 01/21/2017 Care Plan: Referral Order SNOMED-CT : [id number] Pending 01/21/2017 Visit Plan: Diabetes Mellitus - [...] acute changes. 12/20/2016 Appointment: Karmen Espinal WPtel: [phone] [phone] (30 min) Complex 12/20/2016 Patient Education: Patient Medication Summary Completed 12/20/2016 Patient Education: Smoking and Tobacco Addiction Completed 12/20/2016 Patient Education: Hypertension Completed 12/20/2016 Appointment: Karmen Espinal WPtel: [phone] [phone] (30 min) Complex 09/06/2016 Visit Plan: Diabetes [...] d level 08/23/2016 Appointment: Karmen Espinal WPtel: [phone] [facility] [phone] (30 min) Complex 08/23/2016 Patient Education: Patient [...] acute changes. 05/22/2016 Appointment: Karmen Espinal WPtel: [facility] [phone] (30 min) Complex 05/22/2016 Patient Education: Patient Medication Summary Completed 05/22/2016 Patient Education: Smoking and Tobacco Addiction Completed 05/22/2016 Care Plan: Cbc With Differential Ordered 05/22/2016 Care Plan: %Hba1C LOIN C : 10555-7 Ordered 05/22/2016 Care Plan: Tsh Ordered 05/22/2016 [...] with update 02/24/2016 Appointment: Karmen Espinal WPtel: [phone] (30 min) Complex 02/24/2016 Patient Education: Patient [...] this regimen. 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 Idgjcwdw-vuvarzyp-ERGW SIMVASTATIN X 2 WEEKS AND CALL WITH [...] Care Plan: COMPLETE CBC AUTOMATED LOINC : 28139-6 Ordered 03/24/2015 Visit Plan: Diabetes Mellitus - [...] for removal. 03/07/2015 Appointment: [facility] Ash [id number] (15 min) Moderate 03/07/2015 Patient Education: [...] hearing. [facility] ct[facility] due to the wax being more [...] Care Plan: COMPLETE CBC AUTOMATED LOINC : 63053-1 Ordered 12/23/2014 Visit Plan: BPPV - Benign [...] next appt 12/09/2014 Appointment: Karmen Espinal WPtel: [address] [place], [place] [phone] [place] New Patient 12/09/2014 Patient Education: Patient Medication Summary Completed 12/09/2014 Patient Education: .Amazing charts Parox ysmal positional vertigo Completed 12/09/2014 Patient Education: Smoking and Tobacco Addiction Completed 12/09/2014 [phone] [facility] Referral Appointment Requested Referral: Luis Donohue Referral [...] readings are starting to become less controlled. Fqbrtx-yohekjr-yzwrc labs . Cellulitis - start oral antibiotics [...] change in blood pressure readings at home. Fqcudthb-osovhr-llodi to see Dr Villatoro Constipation-start linzess daily [...] POTENTIAL SIDE EFFECTS AND WORSENING OF SYMPTOMS. Bmuqtmkj-ivkduhot-WYGI SIMVASTATIN X 2 WEEKS AND CALL WITH [...]
--- OUTSIDE RECORDS SUMMARY | 2020-03-29 07:43 | XMS REPORT | CCD ---
Author Author Dick Espinal Organization Violeta Ash MD, [facility] Address [address] [place] [address] Phone Care Team Providers Care Publications Writer Name Role Phone PP Unavailable CCM Unavailable Summary Purpose Interface Exchange Insurance Providers Payer name Policy type / Coverage type Covered green party ID Effective Begin Date Effective End Date WPS Medicare Part B Medicare Part B [id number] Unknown Unknown [employer] Medicar e Part B [id number] Unknown Unkn own Family history Father Diagnosis Age At Onset Cancer Unknown Mother Diagnosis Age At Onset Cancer Unknown Social History Social History Element Codes Description Effective Dates Number of cigarettes/day Unknown 20 (One Pack) 03/03/2019 Marital status Unknown M arried 12/09/2014 Employment Unknown Retir ed 12/09/[address]: 12905855 Currently smokes tobacco 12/09/2014 Number of years using tobacco Unknown > 50 12/09/[address]: 136716016 Never drinks alcohol 12/09/2014 Allergies, Adverse Reactions, [...] ICD-10: R26.81 Active 10/17/2018 Unknown Encounter for 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 testosterone cypiona te 200 mg/mL intramuscular oil RxNorm: 3514855 1/2 Milliliter(s) IM 03/04/2019 03/04/2019 Inactive Toujeo SoloStar U-30 0 Insulin 300 unit/mL (1.5 mL) subcutaneous pen RxNorm: 7546098 30 Unit(s) SQ QHS 03/03/2019 03/04/2019 Inactive Xanax 0.5 mg tablet RxNorm: 526989 Tablet(s) as needed TAKE ONE TABLET BY M OUTH THREE TIMES A DAY 02/19/2019 04/19/2019 Active Xanax 0.5 mg tablet RxNorm: 152831 Tablet(s) TAKE ONE TABLET BY MOUTH THREE TIMES A DAY 02/19/2019 02/18/2019 Inactive hydrocodone 5 mg-linh taminophen 325 mg tablet RxNorm: 886487 1 Tablet(s) PO Q6-8H as needed 02/16/2019 03/12/2019 Active testosterone cypiona te 200 mg/mL intramuscular oil RxNorm: 3359191 Milliliter(s) IM 02/16/2019 02/16/2019 In active Protonix 40 mg table t,delayed release RxNorm: 229387 TAKE 1 TABLET BY MOUT H DAILY 02/02/2019 01/27/2020 Ac tive - Ref: [id number] simvastatin 40 mg ta blet RxNorm: 440401 TAKE 1 TABLET BY MOUT H DAILY AT BEDTIME 02/02/2019 01/27/2020 Ac tive - Ref: [id number] testosterone cypiona te 200 mg/mL intramuscular oil RxNorm: 3790356 Milliliter(s) IM 01/30/2019 01/30/2019 In active testosterone cypiona te 200 mg/mL intramuscular oil RxNorm: 4074143 1/2 Milliliter(s) IM [id number] 01/16/2019 05/15/2019 Active testosterone cypiona te 200 mg/mL intramuscular oil RxNorm: 3256378 Milliliter(s) IM 01/16/2019 01/16/2019 In active hydrocodone 5 mg-linh taminophen 325 mg tablet RxNorm: 212866 1 Tablet(s) PO Q6-8H as needed 01/14/2019 02/07/2019 Inactive testosterone cypiona te 200 mg/mL intramuscular oil RxNorm: 0594356 Milliliter(s) IM 01/01/2019 01/01/2019 In active Xanax 0.5 mg tablet RxNorm: 994444 1 Tablet(s) PO TID 12/18/2018 02/14/2019 Inactive testosterone cypiona te 200 mg/mL intramuscular oil RxNorm: 9627980 Milliliter(s) IM 12/17/2018 12/17/2018 In active hydrocodone 5 mg-linh taminophen 325 mg tablet RxNorm: 780558 1 Tablet(s) PO Q6-8H as needed 12/15/2018 01/08/2019 Inactive testosterone cypiona te 200 mg/mL intramuscular oil RxNorm: 1794732 Milliliter(s) IM 12/02/2018 12/02/2018 In active testosterone cypiona te 200 mg/mL intramuscular oil RxNorm: 9017285 Milliliter(s) IM 11/18/2018 11/18/2018 In active hydrocodone 5 mg-linh taminophen 325 mg tablet RxNorm: 050416 1 Tablet(s) PO Q6-8H as needed 11/13/2018 12/07/2018 Inactive testosterone cypiona te 200 mg/mL intramuscular oil RxNorm: 8621225 1/2 Milliliter(s) IM [id number] 11/04/2018 01/15/2019 Inactive testosterone cypiona te 200 mg/mL intramuscular oil RxNorm: 7433410 Milliliter(s) IM 11/04/2018 11/04/2018 In active nicotine 21 mg/24 hr daily transdermal patch RxNorm: 837014 1 TD daily 10/31/2018 10/30/2018 In active nicotine 21 mg/24 hr daily transdermal patch RxNorm: 799669 1 TD daily 10/31/2018 11/29/2018 In active meclizine 25 mg tablet RxNorm: 622266 1 Tablet(s) PO Q6 PRN TAKE ONE TABLET BY MOUTH EVERY 6 HOURS NEEDED 10/17/2018 01/14/2019 Inactive hydrocodone 5 mg-linh taminophen 325 mg tablet RxNorm: 991645 1 Tablet(s) PO Q6-8H as needed 10/17/2018 11/10/2018 Inactive metformin 500 mg tablet RxNorm: 112084 Tablet(s) TAKE 1 TABLET BY MOUTH DAILY 10/15/2018 10/09/2019 Ac tive lisinopril 10 mg tablet RxNorm: 106909 TAKE 1 TABLET BY MOUTH TWO TIMES DAILY 10/15/2018 10/09/2019 Ac tive - First Attempt Ref: [id number] testosterone cypiona te 200 mg/mL intramuscular oil RxNorm: 5290236 Milliliter(s) IM 10/14/2018 10/14/2018 In active Xanax 0.5 mg tablet RxNorm: 206574 1 Tablet(s) PO TID 10/03/2018 11/30/2018 Inactive testosterone cypiona te 200 mg/mL intramuscular oil RxNorm: 7469142 1/2 Milliliter(s) IM weekly 10/03/2018 11/03/2018 Inactive testosterone cypiona te 200 mg/mL intramuscular oil RxNorm: 7997848 Milliliter(s) IM 10/03/2018 10/03/2018 In active testosterone cypiona te 200 mg/mL intramuscular oil RxNorm: 0458646 Milliliter(s) IM 09/23/2018 09/23/2018 In active hydrocodone 5 mg-linh taminophen 325 mg tablet RxNorm: 645857 1 Tablet(s) PO Q6-8H as needed 09/22/2018 10/16/2018 Inactive testosterone cypiona te 200 mg/mL intramuscular oil RxNorm: 0055563 1/2 Milliliter(s) IM 09/02/2018 09/02/2018 Inactive testosterone enantha te 200 mg/mL intramuscular oil RxNorm: 426179 Milliliter(s) IM 08/21/2018 08/21/2018 In active hydrocodone 5 mg-linh taminophen 325 mg tablet RxNorm: 943775 1 Tablet(s) PO Q6-8H as needed 08/21/2018 09/14/2018 Inactive testosterone cypiona te 200 mg/mL intramuscular oil RxNorm: 7189413 Milliliter(s) IM 08/08/2018 08/08/2018 In active testosterone cypiona te 200 mg/mL intramuscular oil RxNorm: 2349040 1/2 Milliliter(s) IM 07/28/2018 07/28/2018 Inactive hydrocodone 5 mg-linh taminophen 325 mg tablet RxNorm: 069813 1 Tablet(s) PO Q6-8H as needed 07/21/2018 08/14/2018 Inactive testosterone cypiona te 200 mg/mL intramuscular oil RxNorm: 215899 Milliliter(s) IM 07/16/2018 07/16/2018 In active testosterone cypiona te 200 mg/mL intramuscular oil RxNorm: 041803 Milliliter(s) IM 07/02/2018 07/02/2018 In active Xanax 0.5 mg tablet RxNorm: 313600 1 Tablet(s) PO TID 06/27/2018 08/24/2018 Inactive testosterone cypiona te 200 mg/mL intramuscular oil RxNorm: 557945 Milliliter(s) IM 06/24/2018 06/24/2018 In active hydrocodone 5 mg-linh taminophen 325 mg tablet RxNorm: 285048 1 Tablet(s) PO Q6-8H as needed 06/23/2018 07/17/2018 Inactive testosterone cypiona te 200 mg/mL intramuscular oil RxNorm: 569171 Milliliter(s) IM 06/13/2018 06/13/2018 In active testosterone cypiona te 200 mg/mL intramuscular oil RxNorm: 779081 Milliliter(s) IM 06/05/2018 06/05/2018 In active testosterone cypiona te 200 mg/mL intramuscular oil RxNorm: 6257908 1/2 Milliliter(s) IM weekly 05/30/2018 09/26/2018 Inactive testosterone cypiona te 200 mg/mL intramuscular oil RxNorm: 005771 Milliliter(s) IM 05/30/2018 05/30/2018 In active testosterone cypiona te 200 mg/mL intramuscular oil RxNorm: 739465 Milliliter(s) IM 05/22/2018 05/22/2018 In active hydrocodone 5 mg-linh taminophen 325 mg tablet RxNorm: 180850 1 Tablet(s) PO Q6-8H as needed 05/20/2018 06/13/2018 Inactive testosterone cypiona te 200 mg/mL intramuscular oil RxNorm: 173490 1/2 Milliliter(s) IM 05/12/2018 05/12/2018 Inactive testosterone cypiona te 200 mg/mL intramuscular oil RxNorm: 721998 Milliliter(s) IM 05/02/2018 05/02/2018 In active testosterone cypiona te 200 mg/mL intramuscular oil RxNorm: 534075 1/2 Milliliter(s) IM weekly 04/24/2018 05/29/2018 Inactive testosterone cypiona te 200 mg/mL intramuscular oil RxNorm: 447234 0.5 Milliliter(s) IM 04/24/2018 04/24/2018 Inactive hydrocodone 5 mg-linh taminophen 325 mg tablet RxNorm: 490081 1 Tablet(s) PO Q6-8H as needed 04/22/2018 05/16/2018 Inactive testosterone cypiona te 200 mg/mL intramuscular oil RxNorm: 937890 1/2 Milliliter(s) IM 04/17/2018 04/17/2018 Inactive testosterone cypiona te 200 mg/mL intramuscular oil RxNorm: 617326 1/2 Milliliter(s) IM weekly 04/16/2018 04/23/2018 Inactive Jardiance 10 mg tablet RxNorm: 6478117 1 Tablet(s) PO daily 04/04/2018 12/29/2018 Inactive testosterone cypiona te 200 mg/mL intramuscular oil RxNorm: 319538 1 Milliliter(s) IM monthly 04/04/2018 04/15/2018 Inactive Protonix 40 mg table t,delayed release RxNorm: 591248 1 Tablet(s) PO daily TAKE 1 TABLET BY MOUTH DAILY 04/04/2018 02/01/2019 Inactive - Ref: [id number] hydrocodone 5 mg-linh taminophen 325 mg tablet RxNorm: 898479 1 Tablet(s) PO Q6-8H as needed 03/19/2018 04/12/2018 Inactive Flomax 0.4 mg capsule RxNorm: 762665 1 Capsule(s) PO daily 03/10/2018 03/04/2019 Inactive Urecholine 25 mg tablet RxNorm: 377705 1 Tablet(s) PO BID 03/10/2018 07/07/2018 Inactive ketorolac 60 mg/2 mL intramuscular solution RxNorm: 3774052 Milliliter(s) IM 03/07/2018 03/07/2018 In active metformin 500 mg tablet RxNorm: 694540 Tablet(s) TAKE 1 TABLET BY MOUTH DAILY 02/20/2018 02/13/2019 In active 1 q am and 1/2 tab q pm hydrocodone 5 mg-linh taminophen 325 mg tablet RxNorm: 006147 1 Tablet(s) PO Q6-8H as needed 02/20/2018 03/16/2018 Inactive Kenalog 40 mg/mL bartolome pension for injection RxNorm: 7663725 1.5 Milliliter(s) In j 01/30/2018 01/30/2018 In active hydrocodone 5 mg-linh taminophen 325 mg tablet RxNorm: 631284 1 Tablet(s) PO Q6-8H as needed 01/23/2018 02/16/2018 Inactive Urecholine 25 mg tablet RxNorm: 677240 1 Tablet(s) PO BID 01/22/2018 03/09/2018 Inactive Flomax 0.4 mg capsule RxNorm: 713397 1 Capsule(s) PO daily 01/22/2018 03/09/2018 Inactive Flomax 0.4 mg capsule RxNorm: 450435 1 Capsule(s) PO daily 01/22/2018 01/21/2018 Inactive Urecholine 25 mg tablet RxNorm: 772166 1 Tablet(s) PO BID 01/22/2018 01/21/2018 Inactive testosterone cypiona te 200 mg/mL intramuscular oil RxNorm: 374302 Milliliter(s) IM 01/17/2018 01/17/2018 In active testosterone cypiona te 200 mg/mL intramuscular oil RxNorm: 001652 1 Milliliter(s) IM monthly 01/17/2018 04/03/2018 Inactive doxycycline hyclate 100 mg tablet RxNorm: 061374 1 Tablet(s) PO BID 01/14/2018 01/23/2018 Inactive lisinopril 10 mg tablet RxNorm: 254040 TAKE 1 TABLET BY MOUTH TWO TIMES DAILY 01/14/2018 10/14/2018 In active - First Attempt Ref: [id number] nystatin 100,000 uni t/mL oral suspension RxNorm: 498233 4 Milliliter(s) PO QI D Swish and swallow 01/08/2018 01/07/2018 Inactive nystatin 100,000 uni t/mL oral suspension RxNorm: 083328 4 Milliliter(s) PO QI D Swish and swallow 01/08/2018 01/12/2018 Inactive Xanax 0.5 mg tablet RxNorm: 337084 1 Tablet(s) PO TID 01/08/2018 12/23/2018 Inactive simvastatin 40 mg ta blet RxNorm: 034994 TAKE 1 TABLET BY MOUT H DAILY AT BEDTIME 12/30/2017 12/24/2018 In active - First Attempt Ref: [id number] metformin 500 mg tablet RxNorm: 337279 TAKE 1 TABLET BY MOUTH DAILY 12/30/2017 02/19/2018 Inactive - First Attempt Ref: [id number] hydrocodone 5 mg-linh taminophen 325 mg tablet RxNorm: 780268 1 Tablet(s) PO Q6-8H as needed 12/25/2017 01/18/2018 Inactive Protonix 40 mg table t,delayed release RxNorm: 748080 Tablet(s) TAKE 1 TABL ET BY MOUTH DAILY 11/20/2017 04/03/2018 Inactive - Ref: [id number] Linzess 72 mcg capsule RxNorm: 3195277 1 Capsule(s) PO daily 11/19/2017 No Stop Date Active hydrocodone 5 mg-linh taminophen 325 mg tablet RxNorm: 593980 1 Tablet(s) PO Q6-8H as needed 11/19/2017 12/13/2017 Inactive hydrocodone 5 mg-linh taminophen 325 mg tablet RxNorm: 123591 1 Tablet(s) PO Q6-8H as needed 10/28/2017 11/18/2017 Inactive Xanax 0.5 mg tablet RxNorm: 183639 1 Tablet(s) PO TID 10/25/2017 12/22/2017 Inactive Xanax 0.5 mg tablet RxNorm: 521250 TAKE ONE TABLET BY MOUTH THREE TIMES A D AY 10/24/2017 12/01/2018 In active hydrocodone 5 mg-linh taminophen 325 mg tablet RxNorm: 259097 1 Tablet(s) PO Q6-8H as needed 09/30/2017 10/24/2017 Inactive Protonix 40 mg table t,delayed release RxNorm: 669856 TAKE 1 TABLET BY MOUT H DAILY 09/16/2017 11/19/2017 In active - Ref: [id number] Yovana WheeleroStar 300 unit/mL (1.5 mL) subcutaneous insulin pen RxNorm: 3419407 35 Unit(s) SQ QHS 08/30/2017 03/02/2019 Inactive dosage increase hydrocodone 5 mg-linh taminophen 325 mg tablet RxNorm: 999812 1 Tablet(s) PO Q6-8H as needed 08/28/2017 09/29/2017 Inactive hydrocodone 5 mg-linh taminophen 325 mg tablet RxNorm: 203813 1 Tablet(s) PO Q6-8H as needed 07/23/2017 08/24/2017 Inactive lisinopril 10 mg tablet RxNorm: 732367 1 Tablet(s) PO BID Take 1 tablet by mout h daily 07/23/2017 01/13/2018 Inactive hydrocodone 5 mg-linh taminophen 325 mg tablet RxNorm: 557249 1 Tablet(s) PO Q6-8H as needed 06/27/2017 07/22/2017 Inactive Xanax 0.5 mg tablet RxNorm: 139897 1 Tablet(s) PO TID 06/18/2017 10/25/2017 Inactive hydrocodone 5 mg-linh taminophen 325 mg tablet RxNorm: 753724 1 Tablet(s) PO Q6-8H as needed 05/27/2017 06/26/2017 Inactive Levaquin 500 mg tablet RxNorm: 086793 1 Tablet(s) PO daily 05/24/2017 05/23/2017 Inactive Levaquin 500 mg tablet RxNorm: 396387 1 Tablet(s) PO daily 05/24/2017 05/30/2017 Inactive Protonix 40 mg table t,delayed release RxNorm: 877132 Take 1 tablet by mout h daily 04/29/2017 09/15/2017 In active - Ref: [id number] hydrocodone 5 mg-linh taminophen 325 mg tablet RxNorm: 037806 1 Tablet(s) PO Q6-8H as needed 04/25/2017 05/26/2017 Inactive metformin 500 mg tablet RxNorm: 014821 Take 1 tablet by mouth daily 04/08/2017 12/29/2017 Inactive - First Attempt Ref: [id number] hydrocodone 5 mg-linh taminophen 325 mg tablet RxNorm: 423769 1 Tablet(s) PO Q6-8H as needed 03/27/2017 04/24/2017 Inactive hydrocodone 5 mg-linh taminophen 325 mg tablet RxNorm: 255219 1 Tablet(s) PO Q6-8H as needed 02/25/2017 03/26/2017 Inactive Protonix 40 mg table t,delayed release RxNorm: 178018 Tablet(s) Take 1 tabl et by mouth BID 02/25/2017 04/28/2017 Inactive Protonix 40 mg table t,delayed release RxNorm: 320022 Tablet(s) Take 1 tabl et by mouth BID 02/19/2017 02/18/2017 Inactive Protonix 40 mg table t,delayed release RxNorm: 436020 Tablet(s) Take 1 tabl et by mouth BID 02/19/2017 02/24/2017 Inactive lisinopril 10 mg tablet RxNorm: 862027 Take 1 tablet by mouth daily 01/29/2017 07/22/2017 Inactive - First Attempt Ref: [id number] hydrocodone 5 mg-linh taminophen 325 mg tablet RxNorm: 630349 1 Tablet(s) PO Q6-8H as needed 01/25/2017 02/24/2017 Inactive simvastatin 40 mg ta blet RxNorm: 727054 Tablet(s) Take 1 tabl et by mouth daily at bedtime 01/03/2017 12/28/2017 Inactive lisinopril 10 mg tablet RxNorm: 005167 Tablet(s) Take 1 tablet by mouth daily 01/03/2017 01/28/2017 In active Protonix 40 mg table t,delayed release RxNorm: 762243 Tablet(s) Take 1 tabl et by mouth daily 12/28/2016 02/18/2017 Inactive hydrocodone 5 mg-linh taminophen 325 mg tablet RxNorm: 983525 1 Tablet(s) PO Q6-8H as needed 12/26/2016 01/24/2017 Inactive Xanax 0.5 mg tablet RxNorm: 811025 1 Tablet(s) PO TID 12/12/2016 03/11/2017 Inactive simvastatin 40 mg ta blet RxNorm: 746374 Tablet(s) Take 1 tabl et by mouth daily at bedtime 11/30/2016 01/02/2017 Inactive simvastatin 40 mg ta blet RxNorm: 033296 Take 1 tablet by mout h daily at bedtime 11/29/2016 11/29/2016 In active - First Attempt Ref: [id number] Protonix 40 mg table t,delayed release RxNorm: 487342 Take 1 tablet by mout h daily 11/27/2016 12/27/2016 In active - First Attempt Ref: [id number] hydrocodone 5 mg-linh taminophen 325 mg tablet RxNorm: 952613 1 Tablet(s) PO Q6-8H as needed 11/26/2016 12/25/2016 Inactive hydrocodone 5 mg-linh taminophen 325 mg tablet RxNorm: 751759 1 Tablet(s) PO Q8 as needed 10/24/2016 11/25/2016 Inactive Xanax 0.5 mg tablet RxNorm: 645076 1 Tablet(s) PO TID 10/09/2016 12/25/2016 Inactive hydrocodone 5 mg-linh taminophen 325 mg tablet RxNorm: 834797 1 Tablet(s) PO Q8 as needed 09/27/2016 10/23/2016 Inactive lisinopril 10 mg tablet RxNorm: 617404 Take 1 tablet by mouth daily 09/25/2016 01/02/2017 Inactive - First Attempt Ref: [id number] Vitamin D2 50,000 un it capsule RxNorm: 988470 1 Capsule(s) PO QW 09/06/2016 12/01/2018 Inactive hydrocodone 5 mg-linh taminophen 325 mg tablet RxNorm: 103885 1 Tablet(s) PO Q8 as needed 08/28/2016 09/26/2016 Inactive Touanuj SoloStar 300 unit/mL (1.5 mL) subcutaneous insulin pen RxNorm: 2651576 25 Unit(s) SQ QHS 08/23/2016 08/29/2017 Inactive dosage increase hydrocodone 5 mg-linh taminophen 325 mg tablet RxNorm: 269677 1 Tablet(s) PO Q8 as needed 07/26/2016 08/27/2016 Inactive Protonix 40 mg table t,delayed release RxNorm: 191903 Take 1 tablet by mout h daily 07/24/2016 11/26/2016 In active - First Attempt Ref: [id number] hydrocodone 5 mg-linh taminophen 325 mg tablet RxNorm: 128510 1 Tablet(s) PO Q8 as needed 06/19/2016 07/21/2016 Inactive Yovana WheelerMierar 300 unit/mL (1.5 mL) subcutaneous insulin pen RxNorm: 8418120 32 Unit(s) SQ QHS 05/30/2016 08/22/2016 Inactive dosage increase hydrocodone 5 mg-linh taminophen 325 mg tablet RxNorm: 252749 1 Tablet(s) PO Q8 as needed 05/22/2016 06/18/2016 Inactive hydrocodone 5 mg-linh taminophen 325 mg tablet RxNorm: 812850 1 Tablet(s) PO Q8 as needed 04/18/2016 05/17/2016 Inactive Protonix 40 mg table t,delayed release RxNorm: 533933 Take 1 tablet by mout h daily 04/05/2016 07/03/2016 In active - Ref: [id number] metformin 500 mg tablet RxNorm: 644060 Take 1 tablet by mouth daily 04/04/2016 07/02/2016 Inactive - Ref: [id number] Xanax 0.5 mg tablet RxNorm: 737346 1 Tablet(s) PO TID 03/30/2016 09/25/2016 Inactive Xanax 0.5 mg tablet RxNorm: 849210 1 Tablet(s) PO TID 03/23/2016 12/25/2016 Inactive hydrocodone 5 mg-linh taminophen 325 mg tablet RxNorm: 748240 1 Tablet(s) PO Q8 as needed 03/06/2016 04/04/2016 Inactive Cipro 500 mg tablet RxNorm: 832387 1 Tablet(s) PO BID 02/24/2016 03/04/2016 Inactive Miralax 17 gram oral powder packet RxNorm: 924438 1 packet PO every oth er day 01/27/2016 No Stop Date Active hydrocodone 5 mg-linh taminophen 325 mg tablet RxNorm: 877958 1 Tablet(s) PO Q8 as needed 01/27/2016 02/25/2016 Inactive lisinopril 10 mg tablet RxNorm: 601968 1 Tablet(s) PO daily 01/12/2016 09/24/2016 Inactive simvastatin 40 mg ta blet RxNorm: 912708 1 Tablet(s) PO QHS 01/12/2016 11/28/2016 Inactive simvastatin 40 mg ta blet RxNorm: 649060 1 Tablet(s) PO QHS 01/11/2016 01/11/2016 Inactive lisinopril 10 mg tablet RxNorm: 865899 1 Tablet(s) PO daily 01/06/2016 01/11/2016 Inactive simvastatin 40 mg ta blet RxNorm: 092510 1 Tablet(s) PO daily 12/28/2015 01/10/2016 Inactive hydrocodone 5 mg-linh taminophen 325 mg tablet RxNorm: 306583 1 Tablet(s) PO Q8 as needed 12/27/2015 01/26/2016 Inactive Xanax 0.5 mg tablet RxNorm: 503469 1 Tablet(s) PO TID 11/30/2015 03/29/2016 Inactive Toujeo SoloStar 300 unit/mL (1.5 mL) subcutaneous insulin pen RxNorm: 7696649 30 Unit(s) SQ QHS 11/25/2015 05/29/2016 Inactive dosage increase meclizine 25 mg tablet RxNorm: 958424 1 Tablet(s) PO Q6 PRN TAKE ONE TABLET BY MOUTH EVERY 6 HOURS NEEDED 11/25/2015 02/22/2016 Inactive omeprazole 20 mg cap jacquelyn,delayed release RxNorm: 444299 1 Capsule(s) PO daily 10/06/2015 01/26/2016 In active Toujeo SoloStar 300 unit/mL (1.5 mL) subcutaneous insulin pen RxNorm: 2562107 35 Unit(s) SQ QHS 08/02/2015 11/24/2015 Inactive dosage increase Vitamin D2 50,000 un it capsule RxNorm: 147351 1 Capsule(s) PO QW 08/02/2015 09/05/2016 Inactive hydrocodone 5 mg-linh taminophen 325 mg tablet RxNorm: 544105 1 Tablet(s) PO Q8 as needed 07/11/2015 12/26/2015 Inactive Xanax 0.5 mg tablet RxNorm: 616108 1 Tablet(s) PO TID 06/30/2015 06/29/2015 Inactive Xanax 0.5 mg tablet RxNorm: 884428 1 Tablet(s) PO TID 06/30/2015 12/25/2015 Inactive hydrocodone 5 mg-linh taminophen 325 mg tablet RxNorm: 121889 1 Tablet(s) PO Q8 as needed 05/06/2015 07/10/2015 Inactive Symbicort 160 mcg-4. 5 mcg/actuation HFA aerosol inhaler RxNorm: 5383266 INH 04/25/2015 No Stop Date Active Levemir FlexTouch 10 0 unit/mL (3 mL) subcutaneous insulin pen RxNorm: 442205 30 Unit(s) SQ QHS 04/25/2015 11/24/2015 Inactive prednisone 20 mg tablet RxNorm: 231349 1 Tablet(s) PO BID 04/25/2015 04/29/2015 Inactive metformin 500 mg tablet RxNorm: 434493 1 Tablet(s) PO daily 04/25/2015 04/03/2016 Inactive amoxicillin 500 mg c apsule RxNorm: 360822 1 Capsule(s) PO TID 04/14/2015 04/13/2015 Inactive amoxicillin 500 mg c apsule RxNorm: 633773 1 Capsule(s) PO TID a nd recommend probiotic tid (otc) 04/14/2015 04/20/2015 Inactive Kenalog 40 mg/mL bartolome pension for injection RxNorm: 1959572 Milliliter(s) Inj 04/12/2015 04/12/2015 In active hydrocodone 5 mg-linh taminophen 325 mg tablet RxNorm: 030452 1 Tablet(s) PO Q8 as needed 03/30/2015 05/05/2015 Inactive Lantus 100 unit/mL s ubcutaneous solution RxNorm: 483941 25 Unit(s) SQ QPM 03/24/2015 04/25/2015 In active meclizine 25 mg tablet RxNorm: 765130 Tablet(s) TAKE ONE TABLET BY MOUTH EVERY 6 HOURS NEEDED 03/08/2015 04/06/2015 Inactive meclizine 25 mg tablet RxNorm: 602982 TAKE ONE TABLET BY MOUTH EVERY 6 HOURS A S NEEDED 02/25/2015 03/03/2015 Inactive Lantus 100 unit/mL s ubcutaneous solution RxNorm: 976418 20 Unit(s) SQ QPM 02/23/2015 03/23/2015 In active Lantus 100 unit/mL s ubcutaneous solution RxNorm: 549067 25 Unit(s) SQ QPM 02/23/2015 02/22/2015 In active hydrocodone 5 mg-linh taminophen 325 mg tablet RxNorm: 931910 1 Tablet(s) PO Q8 as needed 02/17/2015 03/29/2015 Inactive Xanax 0.5 mg tablet RxNorm: 791140 1 Tablet(s) PO TID 02/03/2015 06/29/2015 Inactive Lantus 100 unit/mL s ubcutaneous solution RxNorm: 988375 20 Unit(s) SQ QPM 12/29/2014 02/22/2015 In active Phenergan 12.5 mg re ctal suppository RxNorm: 249778 1 Suppository RTL Q6 PRN 12/23/2014 No Stop Date Active nausea Kenalog 40 mg/mL bartolome pension for injection RxNorm: 3488022 Milliliter(s) Inj 12/23/2014 12/23/2014 In active prednisone 20 mg tablet RxNorm: 463180 2 Tablet(s) PO daily 12/13/2014 12/17/2014 Inactive prednisone 20 mg tablet RxNorm: 391067 2 Tablet(s) PO daily 12/13/2014 12/12/2014 Inactive meclizine 25 mg tablet RxNorm: 445494 1 Tablet(s) PO Q6 PRN 12/09/2014 02/24/2015 Inactive hydrocodone 5 mg-linh taminophen 325 mg tablet RxNorm: 230224 1 Tablet(s) PO Q8 as needed 12/09/2014 02/16/2015 Inactive Vitamin B-12 1,000 m cg/mL oral drops RxNorm: 7414093 1 Milliliter(s) PO d aily No Start Date Active Alphagan P 0.1 % eye drops RxNorm: 358197 1 Drop(s) OPH BID No Start Date Active aspirin 325 mg table t,delayed release RxNorm: 536214 1 Tablet(s) PO daily No Start Date Active Tricor 145 mg tablet RxNorm: 605850 1 Tablet(s) PO daily No Start Date Active vitamin Q58-gfttapy B1 oral liquid RxNorm: 1,000 Microgram(s) PO daily No Start Date Active atenolol 50 mg tablet RxNorm: 334329 1 Tablet(s) PO daily No Start Date Active Protonix 40 mg table t,delayed release RxNorm: 417659 1 Tablet(s) PO daily No Start Date 04/04/2016 Inactive glipizide 10 mg tablet RxNorm: 032828 1 Tablet(s) PO BID No Start Date 03/22/2015 Inactive Lantus 100 unit/mL s ubcutaneous solution RxNorm: 869549 15 Unit(s) SQ QPM No Start Date 12/28/2014 Inactive lisinopril 10 mg tablet RxNorm: 429062 1 Tablet(s) PO daily No Start Date 01/05/2016 Inactive Vitamin D2 50,000 un it capsule RxNorm: 961251 1 Capsule(s) PO QW No Start Date 08/01/2015 Inactive Toujeo SoloStar 300 unit/mL (1.5 mL) subcutaneous insulin pen RxNorm: 2872588 30 Unit(s) SQ QHS No Start Date 08/01/2015 Inactive simvastatin 40 mg ta blet RxNorm: 011966 1 Tablet(s) PO daily No Start Date 12/27/2015 Inactive testosterone cypiona te 200 mg/mL intramuscular oil RxNorm: 788258 1 Milliliter(s) IM monthly No Start Date 01/16/2018 Inactive hydrocodone 5 mg-linh taminophen 325 mg tablet RxNorm: 807899 1 Tablet(s) PO Q8 as needed No Start Date 12/08/2014 Inactive metformin 500 mg tablet RxNorm: 068798 1 Tablet(s) PO daily No Start Date 04/24/2015 Inactive omeprazole 20 mg cap jacquelyn,delayed release RxNorm: 583922 1 Capsule(s) PO daily No Start Date 10/05/2015 Inactive Flomax 0.4 mg capsule RxNorm: 491043 1 Capsule(s) PO daily No Start Date 03/23/2015 Inactive Medication Administered Medication Codes Instruc tions Start Date Status testosterone cypionate 200 mg/mL intramuscular oil RxNorm: 0728762 1/2Milliliter 03/04/2019 No longer Active testosterone cypionate 200 mg/mL intramuscular oil RxNorm: 7756429 Milliliter 02/16/2019 No longer Active testosterone cypionate 200 mg/mL intramuscular oil RxNorm: 0635104 Milliliter 01/30/2019 No longer Active testosterone cypionate 200 mg/mL intramuscular oil RxNorm: 5526290 Milliliter 01/16/2019 No longer Active testosterone cypionate 200 mg/mL intramuscular oil RxNorm: 7532889 Milliliter 01/01/2019 No longer Active testosterone cypionate 200 mg/mL intramuscular oil RxNorm: 6248747 Milliliter 12/17/2018 No longer Active testosterone cypionate 200 mg/mL intramuscular oil RxNorm: 4341169 Milliliter 12/02/2018 No longer Active testosterone cypionate 200 mg/mL intramuscular oil RxNorm: 3425799 Milliliter 11/18/2018 No longer Active testosterone cypionate 200 mg/mL intramuscular oil RxNorm: 3447106 Milliliter 11/04/2018 No longer Active testosterone cypionate 200 mg/mL intramuscular oil RxNorm: 5828364 Milliliter 10/14/2018 No longer Active testosterone cypionate 200 mg/mL intramuscular oil RxNorm: 1705785 Milliliter 10/03/2018 No longer Active testosterone cypionate 200 mg/mL intramuscular oil RxNorm: 6830775 Milliliter 09/23/2018 No longer Active testosterone cypionate 200 mg/mL intramuscular oil RxNorm: 8793288 1/2Milliliter 09/02/2018 No longer Active testosterone enanthate 200 mg/mL intramuscular oil RxNorm: 455849 Milliliter 08/21/2018 No longer Active testosterone cypionate 200 mg/mL intramuscular oil RxNorm: 8862685 Milliliter 08/08/2018 No longer Active testosterone cypionate 200 mg/mL intramuscular oil RxNorm: 4296538 1/2Milliliter 07/28/2018 No longer Active testosterone cypionate 200 mg/mL intramuscular oil RxNorm: 026490 Milliliter 07/16/2018 No longer Active testosterone cypionate 200 mg/mL intramuscular oil RxNorm: 813710 Milliliter 07/02/2018 No longer Active testosterone cypionate 200 mg/mL intramuscular oil RxNorm: 518666 Milliliter 06/24/2018 No longer Active testosterone cypionate 200 mg/mL intramuscular oil RxNorm: 509058 Milliliter 06/13/2018 No longer Active testosterone cypionate 200 mg/mL intramuscular oil RxNorm: 601340 Milliliter 06/05/2018 No longer Active testosterone cypionate 200 mg/mL intramuscular oil RxNorm: 763179 Milliliter 05/30/2018 No longer Active testosterone cypionate 200 mg/mL intramuscular oil RxNorm: 001869 Milliliter 05/22/2018 No longer Active testosterone cypionate 200 mg/mL intramuscular oil RxNorm: 691523 1/2Milliliter 05/12/2018 No longer Active testosterone cypionate 200 mg/mL intramuscular oil RxNorm: 666584 Milliliter 05/02/2018 No longer Active testosterone cypionate 200 mg/mL intramuscular oil RxNorm: 801479 0.5Milliliter 04/24/2018 No longer Active testosterone cypionate 200 mg/mL intramuscular oil RxNorm: 526597 1/2Milliliter 04/17/2018 No longer Active ketorolac 60 mg/2 mL intramuscular solution RxNorm: 7014889 Milliliter 03/07/2018 No longer Active Kenalog 40 mg/mL suspension for injection RxNorm: 6560357 1.5Milliliter 01/30/2018 No longer Active testosterone cypionate 200 mg/mL intramuscular oil RxNorm: 955800 Milliliter 01/17/2018 No longer Active Kenalog 40 mg/mL suspension for injection RxNorm: 5311356 Milliliter 04/12/2015 No longer Active Kenalog 40 mg/mL suspension for injection RxNorm: 3784212 Milliliter 12/23/2014 No longer Active Immunizations Vaccine [...] immunization ICD-10: Z 23 ICD-9: V06.6 04/25/2017 Anemia, unspecified ICD-10: D64.9 ICD-9: 285.9 02/22/2017 Slow transit constipation ICD-10: K5 9.01 ICD-9: [...] Code Item Item Code Result Date %Hba1C Hks283 % HbA1c 77276-1 7.9 % 03/04/2019 %Hba1C Zok048 Gluc Ave 180 mg/dL 03/04/2019 Testosterone Zqc776 Testo 142.2 ng/dL 03/04/2019 Cbc With Differential [...] 33.6 pg 03/04/2019 Cbc With Differential Ord2 Glynn% 6.9 % 03/04/2019 Cbc With Differential Ord2 [...] 2.56 K/ul 03/04/2019 Cbc With Differential Ord2 Glynn ABS# 0.5 K/ul 03/04/2019 Cbc With Differential Ord2 Eos ABS# 0.4 K/ul 03/04/2019 Cbc With Differential Ord2 Baso ABS# 0.0 K/ul 03/04/2019 Lipid Ord30 CHOL 114 mg/dL 03/04/2019 Lipid Ord30 HDL 25.0 mg/dl 03/04/2019 Lipid Ord30 TRIG 119 mg/dL 03/04/2019 Lipid Ord30 LDL 65 mg/dL 03/04/2019 Lipid Ord30 C/HDL 4.6 Ratio 03/04/2019 Tsh Ord6 TSH (3rd IS) 3.85 uIU/mL 03/04/2019 Comp Metabolic Jpx463 NA 142 mEq/L 03/04/2019 Comp Metabolic Ysq952 K 4.5 mEq/L 03/04/2019 Comp Metabolic Fnq479 CL 105 mEq/L 03/04/2019 Comp Metabolic Hns503 CO2 30.0 mEq/L 03/04/2019 Comp Metabolic Get469 AN ION GAP 12 03/04/2019 Comp Metabolic Uig709 GL UCOSE 92 mg/dL 03/04/2019 Comp Metabolic Jmq586 Cr eat 1.0 mg/dL 03/04/2019 Comp Metabolic Zjd393 eG FR 80 ml/min/1.73m2 03/04 Comp Metabolic Yac675 BUN 20 mg/dL 03/04/2019 Comp Metabolic Taq850 B/ C Ratio 20.8 Ratio 03/04/2019 Comp Metabolic Sjz348 CA LCIUM 9.0 mg/dL 03/04/2019 Comp Metabolic Knm906 AL K PHOS 67 U/L 03/04/2019 Comp Metabolic Gim282 T(SGOT) 17 U/L 03/04/2019 Comp Metabolic Yyo423 AL T(SGPT) 17 U/L 03/04/2019 Comp Metabolic Xkq041 BI LI T 0.4 mg/dL 03/04/2019 Comp Metabolic Auw186 AL BUMIN 3.9 g/dL 03/04/2019 Comp Metabolic Ugn099 TP RO 6.5 g/dL 03/04/2019 Comp Metabolic Ejy757 GL OB 2.6 g/dL 03/04/2019 Comp Metabolic Fmw190 A/ G Ratio 1.5 Ratio 03/04/2019 Comp Metabolic Ylg965 Os mo 285 mOsmo 03/04/2019 Cbc With [...] 33.4 pg 12/02/2018 Cbc With Differential Ord2 Glynn% 8.0 % 12/02/2018 Cbc With Differential Ord2 [...] 2.13 K/ul 12/02/2018 Cbc With Differential Ord2 Glynn ABS# 0.6 K/ul 12/02/2018 Cbc With Differential Ord2 Eos ABS# 0.4 K/ul 12/02/2018 Cbc With Differential Ord2 Baso ABS# 0.0 K/ul 12/02/2018 Testosterone Ixo638 Testo 213.5 ng/dL 12/02/2018 A1C Frequency Nlo928 A1CF 22974-3 Last A1C performed at [facility] [place] [facility] on: 201812/02/2018 Testosterone Nts511 Testo 669.0 ng/dL 09/08/2018 %Hba1C Pqk911 % HbA1c 77219-5 7.4 % 09/08/2018 %Hba1C Qmf669 Gluc Ave 166 mg/dL 09/08/2018 Lipid Ord30 CHOL 114 mg/dL 09/08/2018 Lipid Ord30 HDL 28.0 mg/dl 09/08/2018 Lipid Ord30 TRIG 154 mg/dL 09/08/2018 Lipid Ord30 LDL 55 mg/dL 09/08/2018 Lipid Ord30 C/HDL 4.1 Ratio 09/08/2018 Comp Metabolic Kpi447 NA 137 mEq/L 09/08/2018 Comp Metabolic Ucq180 K 4.3 mEq/L 09/08/2018 Comp Metabolic Hse622 CL 100 mEq/L 09/08/2018 Comp Metabolic Lwy285 CO2 27.0 mEq/L 09/08/2018 Comp Metabolic Afa387 AN ION GAP 14 09/08/2018 Comp Metabolic Yvn560 GL UCOSE 85 mg/dL 09/08/2018 Comp Metabolic Udd050 Cr eat 1.1 mg/dL 09/08/2018 Comp Metabolic Dvf781 eG FR 70 ml/min/1.73m2 09/08 Comp Metabolic Gtu745 BUN 11 mg/dL 09/08/2018 Comp Metabolic Drb462 B/ C Ratio 10.3 Ratio 09/08/2018 Comp Metabolic Laf923 CA LCIUM 9.2 mg/dL 09/08/2018 Comp Metabolic Vex785 AL K PHOS 65 U/L 09/08/2018 Comp Metabolic Xft672 T(SGOT) 16 U/L 09/08/2018 Comp Metabolic Upn335 AL T(SGPT) 14 U/L 09/08/2018 Comp Metabolic Aat946 BI LI T 0.6 mg/dL 09/08/2018 Comp Metabolic Neh910 AL BUMIN 4.0 g/dL 09/08/2018 Comp Metabolic Dde262 TP RO 6.6 g/dL 09/08/2018 Comp Metabolic Ckw254 GL OB 2.6 g/dL 09/08/2018 Comp Metabolic Lov558 A/ G Ratio 1.6 Ratio 09/08/2018 Comp Metabolic Rvx809 Os mo 272 mOsmo 09/08/2018 Vitamin D 25 Oh Eey4387 VITAMIN D, 25 HYDROXY 37.17 ng/mL 09/08/2018 [...] 33.3 pg 09/08/2018 Cbc With Differential Ord2 Glynn% 8.1 % 09/08/2018 Cbc With Differential Ord2 [...] 2.44 K/ul 09/08/2018 Cbc With Differential Ord2 Glynn ABS# 0.6 K/ul 09/08/2018 Cbc With Differential Ord2 Eos ABS# 0.3 K/ul 09/08/2018 Cbc With Differential Ord2 Baso ABS# 0.0 K/ul 09/08/2018 Tsh Ord6 TSH (3rd IS) 2.72 uIU/mL 09/08/2018 Comp Metabolic Oxr502 NA 139 mEq/L 04/01/2018 Comp Metabolic Vlt196 K 4.2 mEq/L 04/01/2018 Comp Metabolic Xfx766 CL 102 mEq/L 04/01/2018 Comp Metabolic Odz252 CO2 29.0 mEq/L 04/01/2018 Comp Metabolic Wty695 AN ION GAP 12 04/01/2018 Comp Metabolic Gdk074 GL UCOSE 87 mg/dL 04/01/2018 Comp Metabolic Gjh433 Cr eat 1.1 mg/dL 04/01/2018 Comp Metabolic Afk559 eG FR 70 ml/min/1.73m2 04/01 Comp Metabolic Wsf626 BUN 21 mg/dL 04/01/2018 Comp Metabolic Nwa199 B/ C Ratio 19.4 Ratio 04/01/2018 Comp Metabolic Mtn095 CA LCIUM 9.1 mg/dL 04/01/2018 Comp Metabolic Zsx310 AL K PHOS 60 U/L 04/01/2018 Comp Metabolic Rkz048 T(SGOT) 15 U/L 04/01/2018 Comp Metabolic Qpi011 AL T(SGPT) 18 U/L 04/01/2018 Comp Metabolic Gbs724 BI LI T 0.4 mg/dL 04/01/2018 Comp Metabolic Evm250 AL BUMIN 4.0 g/dL 04/01/2018 Comp Metabolic Rxk157 TP RO 6.5 g/dL 04/01/2018 Comp Metabolic Mpq708 GL OB 2.5 g/dL 04/01/2018 Comp Metabolic Dgm010 A/ G Ratio 1.6 Ratio 04/01/2018 Comp Metabolic Iek338 Os mo 280 mOsmo 04/01/2018 Lipid Ord30 [...] 34.3 pg 04/01/2018 Cbc With Differential Ord2 Glynn% 6.0 % 04/01/2018 Cbc With Differential Ord2 [...] 3.25 K/ul 04/01/2018 Cbc With Differential Ord2 Glynn ABS# 0.6 K/ul 04/01/2018 Cbc With Differential Ord2 Eos ABS# 0.4 K/ul 04/01/2018 Cbc With Differential Ord2 Baso ABS# 0.0 K/ul 04/01/2018 %Hba1C Hue500 % HbA1c 26021-9 8.0 % 04/01/2018 %Hba1C Ngo816 Gluc Ave 183 mg/dL 04/01/2018 Testosterone Qaw963 Testo 111.3 ng/dL 04/01/2018 Testosterone Gww196 Testo 135.4 ng/dL 01/14/2018 Cbc With Differential [...] 36.0 pg 01/14/2018 Cbc With Differential Ord2 Glynn% 6.8 % 01/14/2018 Cbc With Differential Ord2 [...] 2.71 K/ul 01/14/2018 Cbc With Differential Ord2 Glynn ABS# 0.8 K/ul 01/14/2018 Cbc With Differential Ord2 Eos ABS# 0.2 K/ul 01/14/2018 Cbc With Differential Ord2 Baso ABS# 0.0 K/ul 01/14/2018 Comp Metabolic Pzt566 NA 134 mEq/L 11/20/2017 Comp Metabolic Pan477 K 4.4 mEq/L 11/20/2017 Comp Metabolic Frm656 CL 99 mEq/L 11/20/2017 Comp Metabolic Frs273 CO2 29.0 mEq/L 11/20/2017 Comp Metabolic Ofo196 AN ION GAP 10 11/20/2017 Comp Metabolic Sta850 GL UCOSE 218 mg/dL 11/20/2017 Comp Metabolic Pay302 Cr eat 1.0 mg/dL 11/20/2017 Comp Metabolic Bpy193 eG FR 78 ml/min/1.73m2 11/20 Comp Metabolic Atm559 BUN 13 mg/dL 11/20/2017 Comp Metabolic Xgx333 B/ C Ratio 13.3 Ratio 11/20/2017 Comp Metabolic Ope490 CA LCIUM 9.0 mg/dL 11/20/2017 Comp Metabolic Kzk721 AL K PHOS 71 U/L 11/20/2017 Comp Metabolic Odb783 T(SGOT) 18 U/L 11/20/2017 Comp Metabolic Wrl661 AL T(SGPT) 17 U/L 11/20/2017 Comp Metabolic Pzs874 BI LI T 0.4 mg/dL 11/20/2017 Comp Metabolic Exi296 AL BUMIN 4.1 g/dL 11/20/2017 Comp Metabolic Daf558 TP RO 6.5 g/dL 11/20/2017 Comp Metabolic Xgc940 GL OB 2.4 g/dL 11/20/2017 Comp Metabolic Btw321 A/ G Ratio 1.8 Ratio 11/20/2017 Comp Metabolic Hwc994 Os mo 275 mOsmo 11/20/2017 Cbc With [...] 35.2 pg 11/20/2017 Cbc With Differential Ord2 Glynn% 7.2 % 11/20/2017 Cbc With Differential Ord2 [...] 3.34 K/ul 11/20/2017 Cbc With Differential Ord2 Glynn ABS# 0.6 K/ul 11/20/2017 Cbc With Differential Ord2 Eos ABS# 0.3 K/ul 11/20/2017 Cbc With Differential Ord2 Baso ABS# 0.0 K/ul 11/20/2017 Vitamin D 25 Oh Zll2907 VITAMIN D, 25 HYDROXY 43.72 ng/mL 11/20/2017 %Hba1C Heo620 % HbA1c 05079-4 7.4 % 11/20/2017 %Hba1C Ybu458 Gluc Ave 166 mg/dL 11/20/2017 %Hba1C Wlx500 % HbA1c 58737-9 7.2 % 08/20/2017 %Hba1C Yap689 Gluc Ave 160 mg/dL 08/20/2017 Lipid Ord30 [...] 34.7 pg 08/20/2017 Cbc With Differential Ord2 Glynn% 7.6 % 08/20/2017 Cbc With Differential Ord2 [...] 2.42 K/ul 08/20/2017 Cbc With Differential Ord2 Glynn ABS# 0.6 K/ul 08/20/2017 Cbc With Differential Ord2 Eos ABS# 0.3 K/ul 08/20/2017 Cbc With Differential Ord2 Baso ABS# 0.0 K/ul 08/20/2017 Tsh Ord6 hTSH II 2.27 uIU/mL 08/20/2017 Comp Metabolic Kwr634 NA 138 mEq/L 08/20/2017 Comp Metabolic Ccl927 K 4.3 mEq/L 08/20/2017 Comp Metabolic Uol158 CL 102 mEq/L 08/20/2017 Comp Metabolic Roe643 CO2 29.0 mEq/L 08/20/2017 Comp Metabolic Yhs915 AN ION GAP 11 08/20/2017 Comp Metabolic Zjl680 GL UCOSE 89 mg/dL 08/20/2017 Comp Metabolic Rkz107 Cr eat 1.0 mg/dL 08/20/2017 Comp Metabolic Ehp912 eG FR 80 ml/min/1.73m2 08/20 Comp Metabolic Wum080 BUN 13 mg/dL 08/20/2017 Comp Metabolic Okh917 B/ C Ratio 13.5 Ratio 08/20/2017 Comp Metabolic Zbr148 CA LCIUM 9.2 mg/dL 08/20/2017 Comp Metabolic Evw509 AL K PHOS 69 U/L 08/20/2017 Comp Metabolic Uqw321 T(SGOT) 18 U/L 08/20/2017 Comp Metabolic Gqp295 AL T(SGPT) 19 U/L 08/20/2017 Comp Metabolic Szy440 BI LI T 0.6 mg/dL 08/20/2017 Comp Metabolic Pxv713 AL BUMIN 4.0 g/dL 08/20/2017 Comp Metabolic Cwh710 TP RO 6.6 g/dL 08/20/2017 Comp Metabolic Hqn940 GL OB 2.6 g/dL 08/20/2017 Comp Metabolic Bol750 A/ G Ratio 1.5 Ratio 08/20/2017 Comp Metabolic Wxf215 Os mo 275 mOsmo 08/20/2017 Vitamin D 25 Oh Lpu9780 VITAMIN D, 25 HYDROXY 30.96 ng/mL 08/20/2017 B12 Amv379 B12 >1500.00 pg/ml 02/22/2017 Cbc With Differential [...] 35.7 pg 02/20/2017 Cbc With Differential Ord2 Glynn% 6.3 % 02/20/2017 Cbc With Differential Ord2 [...] 3.19 K/ul 02/20/2017 Cbc With Differential Ord2 Glynn ABS# 0.5 K/ul 02/20/2017 Cbc With Differential Ord2 Eos ABS# 0.4 K/ul 02/20/2017 Cbc With Differential Ord2 Baso ABS# 0.0 K/ul 02/20/2017 Comp Metabolic Bmv957 NA 138 mEq/L 02/20/2017 Comp Metabolic Ioz473 K 4.5 mEq/L 02/20/2017 Comp Metabolic Rde338 CL 101 mEq/L 02/20/2017 Comp Metabolic Uwq048 CO2 31.0 mEq/L 02/20/2017 Comp Metabolic Bba460 AN ION GAP 11 02/20/2017 Comp Metabolic Dew408 GL UCOSE 120 mg/dL 02/20/2017 Comp Metabolic Udq773 Cr eat 0.9 mg/dL 02/20/2017 Comp Metabolic Omn266 eG FR 83 ml/min/1.73m2 02/20 Comp Metabolic Yjk199 BUN 15 mg/dL 02/20/2017 Comp Metabolic Aqz166 B/ C Ratio 16.1 Ratio 02/20/2017 Comp Metabolic Sif161 CA LCIUM 9.1 mg/dL 02/20/2017 Comp Metabolic Tln459 AL K PHOS 67 U/L 02/20/2017 Comp Metabolic Qiu650 T(SGOT) 15 U/L 02/20/2017 Comp Metabolic Hou183 AL T(SGPT) 16 U/L 02/20/2017 Comp Metabolic Jeb238 BI LI T 0.5 mg/dL 02/20/2017 Comp Metabolic Rcr494 AL BUMIN 4.0 g/dL 02/20/2017 Comp Metabolic Gzx173 TP RO 6.4 g/dL 02/20/2017 Comp Metabolic Kut687 GL OB 2.4 g/dL 02/20/2017 Comp Metabolic Upr265 A/ G Ratio 1.7 Ratio 02/20/2017 Comp Metabolic Thf631 Os mo 278 mOsmo 02/20/2017 Tsh Ord6 hTSH II 2.05 uIU/mL 02/20/2017 %Hba1C Vqp423 % HbA1c 78505-9 7.6 % 02/20/2017 %Hba1C Qbr264 Gluc Ave 171 mg/dL 02/20/2017 Vitamin D 25 Oh Aaj0689 VITAMIN D, 25 HYDROXY 44.40 ng/mL 12/21/2016 Comp Metabolic Kca980 NA 131 mEq/L 12/21/2016 Comp Metabolic Swb111 K 4.2 mEq/L 12/21/2016 Comp Metabolic Gog014 CL 97 mEq/L 12/21/2016 Comp Metabolic Cdk498 CO2 27.0 mEq/L 12/21/2016 Comp Metabolic Rey325 AN ION GAP 11 12/21/2016 Comp Metabolic Trs511 GL UCOSE 266 mg/dL 12/21/2016 Comp Metabolic Pdc188 Cr eat 0.9 mg/dL 12/21/2016 Comp Metabolic Fcr428 eG FR 88 ml/min/1.73m2 12/21 Comp Metabolic Fsb378 BUN 12 mg/dL 12/21/2016 Comp Metabolic Hfv541 B/ C Ratio 13.6 Ratio 12/21/2016 Comp Metabolic Mjk251 CA LCIUM 8.6 mg/dL 12/21/2016 Comp Metabolic Rcb664 AL K PHOS 69 U/L 12/21/2016 Comp Metabolic Fvn715 T(SGOT) 15 U/L 12/21/2016 Comp Metabolic Sau215 AL T(SGPT) 14 U/L 12/21/2016 Comp Metabolic Jbn210 BI LI T 0.3 mg/dL 12/21/2016 Comp Metabolic Lkt941 AL BUMIN 3.7 g/dL 12/21/2016 Comp Metabolic Nmn684 TP RO 5.9 g/dL 12/21/2016 Comp Metabolic Bfu802 GL OB 2.2 g/dL 12/21/2016 Comp Metabolic Ses293 A/ G Ratio 1.7 Ratio 12/21/2016 Comp Metabolic Dhk327 Os mo 272 mOsmo 12/21/2016 Cbc With [...] 34.6 pg 12/21/2016 Cbc With Differential Ord2 Glynn% 6.9 % 12/21/2016 Cbc With Differential Ord2 [...] 2.05 K/ul 12/21/2016 Cbc With Differential Ord2 Glynn ABS# 0.4 K/ul 12/21/2016 Cbc With Differential Ord2 Eos ABS# 0.2 K/ul 12/21/2016 Cbc With Differential Ord2 Baso ABS# 0.0 K/ul 12/21/2016 Comp Metabolic Edj761 NA 138 mEq/L 09/03/2016 Comp Metabolic Hxw340 K 4.5 mEq/L 09/03/2016 Comp Metabolic Utx675 CL 102 mEq/L 09/03/2016 Comp Metabolic Qlo405 CO2 30.0 mEq/L 09/03/2016 Comp Metabolic Xhg493 AN ION GAP 11 09/03/2016 Comp Metabolic Bjy490 GL UCOSE 113 mg/dL 09/03/2016 Comp Metabolic Oxq159 Cr eat 1.0 mg/dL 09/03/2016 Comp Metabolic Rjd339 eG FR 81 ml/min/1.73m2 09/03 Comp Metabolic Ety370 BUN 10 mg/dL 09/03/2016 Comp Metabolic Prn006 B/ C Ratio 10.5 Ratio 09/03/2016 Comp Metabolic Zre731 CA LCIUM 9.1 mg/dL 09/03/2016 Comp Metabolic Sqt866 AL K PHOS 71 U/L 09/03/2016 Comp Metabolic Mbk041 T(SGOT) 18 U/L 09/03/2016 Comp Metabolic Awv962 AL T(SGPT) 17 U/L 09/03/2016 Comp Metabolic Chu403 BI LI T 0.6 mg/dL 09/03/2016 Comp Metabolic Buy029 AL BUMIN 4.1 g/dL 09/03/2016 Comp Metabolic Djh602 TP RO 6.4 g/dL 09/03/2016 Comp Metabolic Xym876 GL OB 2.3 g/dL 09/03/2016 Comp Metabolic Fub189 A/ G Ratio 1.8 Ratio 09/03/2016 Comp Metabolic Zvq655 Os mo 276 mOsmo 09/03/2016 Vitamin D 25 Oh Cxj9709 VITAMIN D, 25 HYDROXY 28.23 ng/mL 09/03/2016 [...] 34.4 pg 09/03/2016 Cbc With Differential Ord2 Glynn% 8.9 % 09/03/2016 Cbc With Differential Ord2 [...] 3.34 K/ul 09/03/2016 Cbc With Differential Ord2 Glynn ABS# 0.7 K/ul 09/03/2016 Cbc With Differential Ord2 Eos ABS# 0.4 K/ul 09/03/2016 Cbc With Differential Ord2 Baso ABS# 0.0 K/ul 09/03/2016 Lipid Ord30 CHOL 120 mg/dL 09/03/2016 Lipid Ord30 HDL 33.0 mg/dl 09/03/2016 Lipid Ord30 TRIG 161 mg/dL 09/03/2016 Lipid Ord30 LDL 55 mg/dL 09/03/2016 Lipid Ord30 C/HDL 3.6 Ratio 09/03/2016 %Hba1C Hvp537 % HbA1c 94067-9 7.5 % 09/03/2016 %Hba1C Jij599 Gluc Ave 169 mg/dL 09/03/2016 Tsh Ord6 hTSH II 1.50 uIU/mL 05/23/2016 %Hba1C Ttg748 % HbA1c 20624-5 7.6 % 05/23/2016 %Hba1C Syl038 Gluc Ave 171 mg/dL 05/23/2016 Comp Metabolic Rtd739 NA 135 mEq/L 05/23/2016 Comp Metabolic Vqh029 K 4.4 mEq/L 05/23/2016 Comp Metabolic Gte145 CL 99 mEq/L 05/23/2016 Comp Metabolic Zkz118 CO2 28.0 mEq/L 05/23/2016 Comp Metabolic Iso509 AN ION GAP 12 05/23/2016 Comp Metabolic Hbh244 GL UCOSE 257 mg/dL 05/23/2016 Comp Metabolic Cpy286 Cr eat 0.8 mg/dL 05/23/2016 Comp Metabolic Col577 eG FR 95 ml/min/1.73m2 05/23 Comp Metabolic Oeo757 BUN 11 mg/dL 05/23/2016 Comp Metabolic Cni866 B/ C Ratio 13.3 Ratio 05/23/2016 Comp Metabolic Rxm187 CA LCIUM 9.0 mg/dL 05/23/2016 Comp Metabolic Yfx198 AL K PHOS 82 U/L 05/23/2016 Comp Metabolic Rfv355 T(SGOT) 21 U/L 05/23/2016 Comp Metabolic Cuz950 AL T(SGPT) 20 U/L 05/23/2016 Comp Metabolic Naz545 BI LI T 0.3 mg/dL 05/23/2016 Comp Metabolic Pqt953 AL BUMIN 4.0 g/dL 05/23/2016 Comp Metabolic Ihr931 TP RO 6.4 g/dL 05/23/2016 Comp Metabolic Wmw478 GL OB 2.4 g/dL 05/23/2016 Comp Metabolic Eyy765 A/ G Ratio 1.6 Ratio 05/23/2016 Comp Metabolic Omq819 Os mo 278 mOsmo 05/23/2016 Cbc With [...] 34.5 pg 05/23/2016 Cbc With Differential Ord2 Glynn% 6.1 % 05/23/2016 Cbc With Differential Ord2 [...] 2.38 K/ul 05/23/2016 Cbc With Differential Ord2 Glynn ABS# 0.4 K/ul 05/23/2016 Cbc With Differential Ord2 Eos ABS# 0.2 K/ul 05/23/2016 Cbc With Differential Ord2 Baso ABS# 0.0 K/ul 05/23/2016 B12 Hhp302 B12 597.00 pg/ml 05/23/2016 Metabolic Ord15 NA [...] 0.92 uIU/mL 07/29/2015 Vitamin D 25 Oh Qql4945 VITAMIN D, 25 HYDROXY 26.93 ng/mL 07/29/2015 %Hba1C Frf808 % HbA1c 97550-5 8.8 % 07/29/2015 %Hba1C Amb001 Gluc Ave 206 mg/dL 07/29/2015 Cbc With [...] Ord2 RDW 14.9 % 07/29/2015 Comp Metabolic Wwv393 NA 138 mEq/L 07/29/2015 Comp Metabolic Fzt410 K 4.4 mEq/L 07/29/2015 Comp Metabolic Ohn526 CL 102 mEq/L 07/29/2015 Comp Metabolic Est565 CO2 28.0 mEq/L 07/29/2015 Comp Metabolic Kjm893 AN ION GAP 12 07/29/2015 Comp Metabolic Eyd056 GL UCOSE 261 mg/dL 07/29/2015 Comp Metabolic Ans897 Cr eat 1.0 mg/dL 07/29/2015 Comp Metabolic Upr578 eG FR 77 ml/min/1.73m2 07/29 Comp Metabolic Nhf514 BUN 13 mg/dL 07/29/2015 Comp Metabolic Jyl378 B/ C Ratio 13.0 Ratio 07/29/2015 Comp Metabolic Suj895 CA LCIUM 9.1 mg/dL 07/29/2015 Comp Metabolic Zll311 AL K PHOS 64 U/L 07/29/2015 Comp Metabolic Sbp600 T(SGOT) 20 U/L 07/29/2015 Comp Metabolic Dwc415 AL T(SGPT) 22 U/L 07/29/2015 Comp Metabolic Jiv673 BI LI T 0.4 mg/dL 07/29/2015 Comp Metabolic Cxz324 AL BUMIN 4.0 g/dL 07/29/2015 Comp Metabolic Src231 TP RO 6.1 g/dL 07/29/2015 Comp Metabolic Ggy761 GL OB 2.1 g/dL 07/29/2015 Comp Metabolic Dgy873 A/ G Ratio 1.9 Ratio 07/29/2015 Comp Metabolic Zon012 Os mo 285 mOsmo 07/29/2015 Cbc With [...] Ord2 RDW 13.1 % 05/06/2015 Comp Metabolic Iks975 NA 134 mEq/L 05/06/2015 Comp Metabolic Tff932 K 4.4 mEq/L 05/06/2015 Comp Metabolic Fal049 CL 98 mEq/L 05/06/2015 Comp Metabolic Tbp515 CO2 29.0 mEq/L 05/06/2015 Comp Metabolic Pzb578 AN ION GAP 11 05/06/2015 Comp Metabolic Lob042 GL UCOSE 321 mg/dL 05/06/2015 Comp Metabolic Wrv208 Cr eat 1.0 mg/dL 05/06/2015 Comp Metabolic Bnn880 eG FR 78 ml/min/1.73m2 05/06 Comp Metabolic Wrp798 BUN 20 mg/dL 05/06/2015 Comp Metabolic Xdl379 B/ C Ratio 20.4 Ratio 05/06/2015 Comp Metabolic Ycy867 CA LCIUM 9.5 mg/dL 05/06/2015 Comp Metabolic Mfg650 AL K PHOS 62 U/L 05/06/2015 Comp Metabolic Qug608 T(SGOT) 21 U/L 05/06/2015 Comp Metabolic Uwg926 AL T(SGPT) 37 U/L 05/06/2015 Comp Metabolic Yzm329 BI LI T 0.4 mg/dL 05/06/2015 Comp Metabolic Icl830 AL BUMIN 3.8 g/dL 05/06/2015 Comp Metabolic Lzj986 TP RO 6.1 g/dL 05/06/2015 Comp Metabolic Syc085 GL OB 2.3 g/dL 05/06/2015 Comp Metabolic Qtu652 A/ G Ratio 1.7 Ratio 05/06/2015 Comp Metabolic Oso917 Os mo 283 mOsmo 05/06/2015 Tsh Ord6 hTSH II 1.65 uIU/mL 02/18/2015 B12 Pyi360 B12 605.00 pg/ml 02/18/2015 %Hba1C Kvz068 % HbA1c 36272-7 8.3 % 02/18/2015 %Hba1C Ysn434 Gluc Ave 192 mg/dL 02/18/2015 Cbc With [...] Ord2 RDW 13.9 % 02/17/2015 Comp Metabolic Lhs045 NA 137 mEq/L 02/17/2015 Comp Metabolic Oaw785 K 4.4 mEq/L 02/17/2015 Comp Metabolic Jld064 CL 100 mEq/L 02/17/2015 Comp Metabolic Hyv916 CO2 31.0 mEq/L 02/17/2015 Comp Metabolic Cqk968 AN ION GAP 10 02/17/2015 Comp Metabolic Cdo443 GL UCOSE 307 mg/dL 02/17/2015 Comp Metabolic Mlq147 Cr eat 1.0 mg/dL 02/17/2015 Comp Metabolic Kqf331 eG FR 74 ml/min/1.73m2 02/17 Comp Metabolic Ghg159 BUN 22 mg/dL 02/17/2015 Comp Metabolic Uvt180 B/ C Ratio 21.4 Ratio 02/17/2015 Comp Metabolic Ykw283 CA LCIUM 9.5 mg/dL 02/17/2015 Comp Metabolic Mpl624 AL K PHOS 78 U/L 02/17/2015 Comp Metabolic Vsz765 T(SGOT) 18 U/L 02/17/2015 Comp Metabolic Cyk044 AL T(SGPT) 32 U/L 02/17/2015 Comp Metabolic Lou017 BI LI T 0.5 mg/dL 02/17/2015 Comp Metabolic Njx384 AL BUMIN 4.3 g/dL 02/17/2015 Comp Metabolic Uzm227 TP RO 6.7 g/dL 02/17/2015 Comp Metabolic Ufs202 GL OB 2.4 g/dL 02/17/2015 Comp Metabolic Rnt126 A/ G Ratio 1.8 Ratio 02/17/2015 Comp Metabolic Zki513 Os mo 289 mOsmo 02/17/2015 Review of [...] inspection of skin Location: face 03/07/2015 on mandaeism, cheeks,actinic keratosis with irritation on left cheek - left mandaeism - croptherapy on these two lesions - [...] Procedure Codes Date THER/PROPH/DIAG INJ SC/IM CPT-4: 12058 03/04/2019 THER/PROPH/DIAG INJ SC/IM CPT-4: 41557 02/16/2019 THER/PROPH/DIAG INJ SC/IM CPT-4: 06038 01/30/2019 THER/PROPH/DIAG INJ SC/IM CPT-4: 35626 01/16/2019 THER/PROPH/DIAG INJ SC/IM CPT-4: 78507 01/01/2019 THER/PROPH/DIAG INJ SC/IM CPT-4: 12724 12/17/2018 THER/PROPH/DIAG INJ SC/IM CPT-4: 40562 12/02/2018 THER/PROPH/DIAG INJ SC/IM CPT-4: 87755 11/18/2018 THER/PROPH/DIAG INJ SC/IM CPT-4: 89394 11/04/2018 THER/PROPH/DIAG INJ SC/IM CPT-4: 20593 10/14/2018 THER/PROPH/DIAG INJ SC/IM CPT-4: 76762 10/03/2018 THER/PROPH/DIAG INJ SC/IM CPT-4: 04190 09/23/2018 THER/PROPH/DIAG INJ SC/IM CPT-4: 27565 09/02/2018 THER/PROPH/DIAG INJ SC/IM CPT-4: 27250 08/21/2018 THER/PROPH/DIAG INJ SC/IM CPT-4: 94474 08/08/2018 THER/PROPH/DIAG INJ SC/IM CPT-4: 97697 07/28/2018 THER/PROPH/DIAG INJ SC/IM CPT-4: 41146 07/16/2018 THER/PROPH/DIAG INJ SC/IM CPT-4: 15584 07/02/2018 PPPS, SUBSEQ VISIT CPT- 4: G0439 06/30/2018 THER/PROPH/DIAG INJ SC/IM CPT-4: 03460 06/24/2018 THER/PROPH/DIAG INJ SC/IM CPT-4: 47804 06/13/2018 ADMIN INFLUENZA VIRU S VAC CPT-4: G0008 06/06/2018 FLU VACC PRSV FREE I NC ANTIG CPT-4: 22207 06/06/2018 THER/PROPH/DIAG INJ SC/IM CPT-4: 98133 06/05/2018 THER/PROPH/DIAG INJ SC/IM CPT-4: 36077 05/30/2018 THER/PROPH/DIAG INJ SC/IM CPT-4: 83206 05/22/2018 THER/PROPH/DIAG INJ SC/IM CPT-4: 91620 05/12/2018 THER/PROPH/DIAG INJ SC/IM CPT-4: 66981 05/02/2018 THER/PROPH/DIAG INJ SC/IM CPT-4: 29929 04/24/2018 THER/PROPH/DIAG INJ SC/IM CPT-4: 92184 04/17/2018 KETOROLAC TROMETHAMI NE INJ CPT-4: J1885 03/07/2018 URINALYSIS NONAUTO W /O SCOPE CPT-4: 97321 03/07/2018 THER/PROPH/DIAG INJ SC/IM CPT-4: 91418 02/20/2018 TRIAMCINOLONE ACET I [place] NOS CPT-4: J3301 01/30/2018 THER/PROPH/DIAG INJ SC/IM CPT-4: 60135 01/17/2018 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 3-[address]: [id number] CPT-4: G0436 04/25/2017 ADMIN INFLUENZA VIRU S VAC CPT-4: G0008 04/25/2017 ADMIN PNEUMOCOCCAL V ACCINE SNOMED CT: [id number] CPT-4: G0009 04/25/2017 PNEUMOCOCCAL VACC [address]: 05590296 CPT-4: 34064 04/25/2017 FLU VACC PRSV FREE I NC ANTIG CPT-4: 27929 04/25/2017 ADMIN INFLUENZA VIRU S VAC CPT-4: G0008 05/22/2016 FLU VACC 4 TELLY 3 YRS PLUS IM Formatting Model/CDA Sections, Assigned to/Angela Clemons SNOMED CT: 76661668 CPT-4: 78776Kzerkes 05/22/2016 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 3-[address]: 716585016 CPT-4: G0436 11/25/2015 URINALYSIS NONAUTO W /O SCOPE CPT-4: 13900 05/09/2015 TRIAMCINOLONE ACET I [place] NOS CPT-4: J3301 04/12/2015 DESTRUCT PREMALG LESION CPT-4: 42435 03/07/2015 DESTRUCT PREMALG LES 2-14 CPT-4: 40749 03/07/2015 REMOVE IMPACTED EAR WAX UNI CPT-4: 83195 12/31/2014 THER/PROPH/DIAG INJ SC/IM CPT-4: 13074 12/23/2014 TRIAMCINOLONE ACET I [place] NOS CPT-4: J3301 12/23/2014 Vital Signs Date Vital 03/03/2019 Blood Pressure 1: 150/72 Code: 8480-6 BMI: 20.6 Code: 36557-6 Heart Rate 1: 63 bpm Height: 5'11" SpO2: 100% Weight: 147 lbs 8 oz 12/02/2018 Blood Pressure 1: 140/70 Code: 8480-6 BMI: 21.9 Code: 84251-7 Heart Rate 1: 61 bpm Height: 5'11" SpO2: 94% Weight: 157 lbs 10/17/2018 Blood Pressure 1: 124/54 Code: 8480-6 BMI: 21.9 Code: 62310-9 Heart Rate 1: 64 bpm Height: 5'11" SpO2: 93% Weight: 157 lbs 09/02/2018 Blood Pressure 1: 140/80 Code: 8480-6 BMI: 21.2 Code: 67378-6 Heart Rate 1: 68 bpm Height: 5'11" SpO2: 97% Weight: 152 lbs 06/30/2018 BMI: 21.8 Code: 30298-0 Height: 5'11" Weight: 156 lbs 06/06/2018 Blood Pressure 1: 128/76 Code: 8480-6 BMI: 22.0 Code: 98985-0 Heart Rate 1: 81 bpm Height: 5'11" SpO2: 92% Weight: 158 lbs 04/04/2018 Blood Pressure 1: 124/70 Code: 8480-6 BMI: 20.8 Code: 84480-8 Heart Rate 1: 65 bpm Height: 5'11" SpO2: 95% Weight: 149 lbs 03/07/2018 Blood Pressure 1: 148/70 Code: 8480-6 BMI: 21.2 Code: 55754-9 Heart Rate 1: 66 bpm Height: 5'11" SpO2: 94% Weight: 152 lbs 02/20/2018 Blood Pressure 1: 134/58 Code: 8480-6 BMI: 20.5 Code: 72826-4 Heart Rate 1: 61 bpm Height: 5'11" SpO2: 92% Weight: 147 lbs 01/30/2018 Blood Pressure 1: 158/68 Code: 8480-6 BMI: 21.5 Code: 99896-4 Heart Rate 1: 71 bpm Height: 5'11" SpO2: 92% Weight: 154 lbs 01/14/2018 Blood Pressure 1: 156/70 Code: 8480-6 Height: Weight: 01/13/2018 Blood Pressure 1: 148/62 Code: 8480-6 BMI: 20.9 Code: 22274-2 Heart Rate 1: 54 bpm Height: 5'11" SpO2: 97% Weight: 150 lbs 11/19/2017 Blood Pressure 1: 150/60 Code: 8480-6 BMI: 21.8 Code: 98182-9 Heart Rate 1: 63 bpm Height: 5'11" SpO2: 98% Weight: 156 lbs 10/02/2017 Blood Pressure 1: 168/60 Code: 8480-6 BMI: 21.9 Code: 73611-5 Heart Rate 1: 52 bpm Height: 5'11" SpO2: 97% Weight: 157 lbs 07/23/2017 Blood Pressure 1: 170/70 Code: 8480-6 BMI: 21.8 Code: 46856-5 Heart Rate 1: 65 bpm Height: 5'11" SpO2: 98% Weight: 156 lbs 04/25/2017 Blood Pressure 1: 138/60 Code: 8480-6 BMI: 21.6 Code: 33369-8 Heart Rate 1: 55 bpm Height: 5'11" SpO2: 93% Weight: 155 lbs 02/19/2017 Blood Pressure 1: 138/64 Code: 8480-6 BMI: 21.3 Code: 04565-8 Heart Rate 1: 52 bpm Height: 5'11" SpO2: 96% Weight: 152 lbs 8 oz 01/21/2017 Blood Pressure 1: 160/68 Code: 8480-6 BMI: 21.3 Code: 24114-1 Heart Rate 1: 62 bpm Height: 5'11" SpO2: 96% Weight: 153 lbs 12/20/2016 Blood Pressure 1: 124/66 Code: 8480-6 BMI: 21.5 Code: 75471-3 Height: 5'11" Weight: 154 lbs 08/23/2016 Blood Pressure 1: 142/52 Code: 8480-6 BMI: 21.2 Code: 51529-5 Heart Rate 1: 54 bpm Height: 5'11" SpO2: 96% Weight: 152 lbs 05/22/2016 Blood Pressure 1: 130/76 Code: 8480-6 BMI: 21.5 Code: 40763-5 Heart Rate 1: 78 bpm Height: 5'11" SpO2: 92% Weight: 154 lbs 02/24/2016 Blood Pressure 1: 128/80 Code: 8480-6 BMI: 21.2 Code: 67312-3 Heart Rate 1: 74 bpm Height: 5'11" SpO2: 96% Weight: 152 lbs 01/27/2016 Blood Pressure 1: 144/60 Code: 8480-6 BMI: 21.2 Code: 09267-1 Heart Rate 1: 74 bpm Height: 5'11" SpO2: 97% Weight: 152 lbs 11/25/2015 Blood Pressure 1: 110/52 Code: 8480-6 BMI: 21.9 Code: 41942-5 Heart Rate 1: 65 bpm Height: 5'11" SpO2: 92% Weight: 157 lbs 07/28/2015 Blood Pressure 1: 138/62 Code: 8480-6 BMI: 21.8 Code: 12679-2 Heart Rate 1: 63 bpm Height: 5'11" SpO2: 91% Weight: 156 lbs 05/26/2015 Blood Pressure 1: 120/58 Code: 8480-6 BMI: 21.5 Code: 41453-0 Heart Rate 1: 99 bpm Height: 5'11" SpO2: 96% Weight: 154 lbs 05/06/2015 Blood Pressure 1: 120/58 Code: 8480-6 BMI: 21.2 Code: 98810-8 Heart Rate 1: 66 bpm Height: 5'11" SpO2: 96% Weight: 152 lbs 04/25/2015 Blood Pressure 1: 136/62 Code: 8480-6 BMI: 21.2 Code: 68630-8 Heart Rate 1: 63 bpm Height: 5'11" SpO2: 97% Weight: 152 lbs 04/12/2015 Blood Pressure 1: 160/58 Code: 8480-6 BMI: 21.6 Code: 51975-6 Heart Rate 1: 62 bpm Height: 5'11" Weight: 155 lbs 03/24/2015 Blood Pressure 1: 138/68 Code: 8480-6 BMI: 22.0 Code: 39930-9 Heart Rate 1: 65 bpm Height: 5'11" SpO2: 96% Weight: 158 lbs 03/07/2015 Blood Pressure 1: 116/52 Code: 8480-6 BMI: 22.2 Code: 38030-1 Heart Rate 1: 64 bpm Height: 5'11" SpO2: 97% Weight: 159 lbs 02/17/2015 Blood Pressure 1: 148/58 Code: 8480-6 BMI: 21.3 Code: 79254-2 Heart Rate 1: 63 bpm Height: 5'11" SpO2: 97% Weight: 153 lbs 12/31/2014 Blood Pressure 1: 100/60 Code: 8480-6 BMI: 21.8 Code: 54484-4 Heart Rate 1: 68 bpm Height: 5'11" Weight: 156 lbs 12/23/2014 Blood Pressure 1: 148/64 Code: 8480-6 BMI: 21.9 Code: 26837-0 Heart Rate 1: 64 bpm Height: 5'11" [...] daily 11/25/2015 None cough Location in the [facility] 11/25/2015 None cough Quality acute 11/25/2015 None [...] Encounters Encounter Performer Loca tion Codes Date 33932 EST. P ATIENT, LEVEL IV Diagnosis: Chronic obstructive pulmonary disease, unspecified[ICD10: J44.9] Diagnosis: Mixed hyperlipidemia[ICD10: E78.2] Diagnosis: Type 2 diabetes mellitus with hyperglycemia[ICD10: E11.65] Diagnosis: Testicular dysfunction, unspecified[ICD10: E29.9] Diagnosis: Abnormal weight loss[ICD10: R63.4] Karmen Ash MD, [facility] CPT-4: 14315 03/03/2019 [id number]) 24477 EST. P ATIENT, LEVEL IV Diagnosis: Chronic obstructive pulmonary disease, unspecified[ICD10: J44.9] Diagnosis: Type 2 diabetes mellitus with hyperglycemia[ICD10: E11.65] Diagnosis: Testicular dysfunction, unspecified[ICD10: E29.9] Diagnosis: Other insomnia[ICD10: G47.09] Karmen Ash MD, [facility] CPT- 4: 27313 12/02/2018 ([id number] 51023 EST. P ATIENT, LEVEL III Diagnosis: Orthostatic hypotension[ICD10: I95.1] Diagnosis: Low back pain[ICD10: M54.5] Diagnosis: Unsteadiness on feet[ICD10: R26.81] Karmen Ash MD, [facility] CPT-4: 81773 10/17/2018 ([id number]) 41168 EST. P ATIENT, LEVEL IV Diagnosis: Essential (primary) hypertension[ICD10: I10] Diagnosis: Chronic obstructive pulmonary disease, unspecified[ICD10: J44.9] Diagnosis: Type 2 diabetes mellitus with hyperglycemia[ICD10: E11.65] Diagnosis: Vitamin D deficiency, unspecified[ICD10: E55.9] Diagnosis: Mixed hyperlipidemia[ICD10: E78.2] Diagnosis: Testicular dysfunction, unspecified[ICD10: E29.9] Karmen Ash MD, [facility] CPT-4: 18245 09/02/2018 ([id number]) 15381 EST. P ATIENT, LEVEL IV Diagnosis: Cellulitis of face[ICD10: L03.211] Diagnosis: Type 2 diabetes mellitus without complications[ICD10: E11.9] Diagnosis: Essential (primary) hypertension[ICD10: I10] Diagnosis: Encounter for immunization[ICD10: Z23] Karmen Ash MD, [facility] CPT-4: 50410 06/06/2018 ([id number]) 21239 EST. P ATIENT, LEVEL IV Diagnosis: Essential (primary) hypertension[ICD10: I10] Diagnosis: Chronic obstructive pulmonary disease, unspecified[ICD10: J44.9] Diagnosis: Testicular dysfunction, unspecified[ICD10: E29.9] Diagnosis: Type 2 diabetes mellitus with hyperglycemia[ICD10: E11.65] Karmen Ash MD, [facility] CPT-4: 37143 04/04/2018 ([id number]) 51387 EST. P ATIENT, LEVEL III Diagnosis: Low back pain[ICD10: M54.5] Diagnosis: Dysuria[ICD10: R30.0] Karmen Ash MD, [facility] CPT-4: 65023 03/07/2018 ([id number]) 05271 EST. P ATIENT, LEVEL IV Diagnosis: Essential (primary) hypertension[ICD10: I10] Diagnosis: Chronic obstructive pulmonary disease, unspecified[ICD10: J44.9] Diagnosis: Abnormal weight loss[ICD10: R63.4] Diagnosis: Low back pain[ICD10: M54.5] Diagnosis: Testicular dysfunction, unspecified[ICD10: E29.9] Diagnosis: Type 2 diabetes mellitus with hyperglycemia[ICD10: E11.65] Karmen Ash MD, [facility] CPT-4: 45135 02/20/2018 ([id number]) 22855 EST. P ATIENT, LEVEL III Diagnosis: Chronic obstructive pulmonary disease with (acute) exacerbation[ICD10: J44.1] Karmen Ash MD, [facility] CPT-4: 75273 01/30/2018 97193 EST. PATIENT, LEVEL II Diagnosis: Insect bite (nonvenomous), left lower leg, initial encounter[ICD10: S80.862A] Karmen Ash MD, [facility] CPT-4: 96187 01/14/2018 ([id number]) 44777 EST. P ATIENT, LEVEL IV Diagnosis: Type 2 diabetes mellitus with hyperglycemia[ICD10: E11.65] Diagnosis: Chronic obstructive pulmonary disease, unspecified[ICD10: J44.9] Diagnosis: Other fatigue[ICD10: R53.83] Karmen Ash MD, [facility] CPT- 4: 26670 01/13/2018 ([id number]) 75222 EST. P ATIENT, LEVEL IV Diagnosis: Type 2 diabetes mellitus with hyperglycemia[ICD10: E11.65] Diagnosis: Vitamin D deficiency, unspecified[ICD10: E55.9] Diagnosis: Essential (primary) hypertension[ICD10: I10] Diagnosis: Abdominal distension (gaseous)[ICD10: R14.0] Diagnosis: Drug induced constipation[ICD10: K59.03] Karmen Ash MD, [facility] CPT-4: 67820 11/19/2017 80975 EST. PATIENT, LEVEL IV Diagnosis: Low back pain[ICD10: M54.5] Diagnosis: Chronic obstructive pulmonary disease, unspecified[ICD10: J44.9] Brunilda Ash MD, [facility] CPT-4: 39319 10/02/2017 ([id number]) 02764 EST. P ATIENT, LEVEL IV Diagnosis: Essential (primary) hypertension[ICD10: I10] Diagnosis: Type 2 diabetes mellitus with hyperglycemia[ICD10: E11.65] Diagnosis: Vitamin D deficiency, unspecified[ICD10: E55.9] Diagnosis: Mixed hyperlipidemia[ICD10: E78.2] Karmen Ash MD, [facility] CPT-4: 10441 07/23/2017 ([id number]) 84786 EST. P ATIENT, LEVEL IV Diagnosis: Essential (primary) hypertension[ICD10: I10] Diagnosis: Type 2 diabetes mellitus with hyperglycemia[ICD10: E11.65] Diagnosis: Chronic obstructive pulmonary disease, unspecified[ICD10: J44.9] Diagnosis: Nicotine dependence, unspecified, uncomplicated[ICD10: F17.200] Diagnosis: Encounter for immunization[ICD10: Z23] Karmen Ash MD, [facility] CPT-4: 12980 04/25/2017 ([id number]) 05423 EST. P ATIENT, LEVEL IV Diagnosis: Type 2 diabetes mellitus with hyperglycemia[ICD10: E11.65] Diagnosis: Essential (primary) hypertension[ICD10: I10] Diagnosis: Anemia, unspecified[ICD10: D64.9] Karmen Ash MD, [facility] CPT- 4: 90045 02/19/2017 ([id number]) 23324 EST. P ATIENT, LEVEL IV Diagnosis: Slow transit constipation[ICD10: K59.01] Diagnosis: Gastro-esophageal reflux disease without esophagitis[ICD10: K21.9] Diagnosis: Essential (primary) hypertension[ICD10: I10] Karmen Ash MD, [facility] CPT-4: 38135 01/21/2017 ([id number]) 38944 EST. P ATIENT, LEVEL IV Diagnosis: Type 2 diabetes mellitus with hyperglycemia[ICD10: E11.65] Diagnosis: Vitamin D deficiency, unspecified[ICD10: E55.9] Diagnosis: Essential (primary) hypertension[ICD10: I10] Diagnosis: Chronic obstructive pulmonary disease, unspecified[ICD10: J44.9] Karmen Ash MD, [facility] CPT-4: 77188 12/20/2016 ([id number]) 31224 EST. P ATIENT, LEVEL IV Diagnosis: Type 2 diabetes mellitus with hyperglycemia[ICD10: E11.65] Diagnosis: Essential (primary) hypertension[ICD10: I10] Diagnosis: Mixed hyperlipidemia[ICD10: E78.2] Diagnosis: Vitamin D deficiency, unspecified[ICD10: E55.9] Karmen Ash MD, [facility] CPT-4: 67143 08/23/2016 ([id number]) 38919 EST. P ATIENT, LEVEL IV Diagnosis: Type 2 diabetes mellitus with hyperglycemia[ICD10: E11.65] Diagnosis: Essential (primary) hypertension[ICD10: I10] Diagnosis: Chronic obstructive pulmonary disease, unspecified[ICD10: J44.9] Karmen Ash MD, [facility] CPT-4: 08023 05/22/2016 ([id number]) 56467 EST. P ATIENT, LEVEL III Diagnosis: Dysuria[ICD10: R30.0] Diagnosis: Essential (primary) hypertension[ICD10: I10] Karmen Ash MD, [facility] CPT-4: 74125 02/24/2016 ([id number]) 67602 EST. P ATIENT, LEVEL IV Diagnosis: Gastro-esophageal reflux disease without esophagitis[ICD10: K21.9] Diagnosis: Slow transit constipation[ICD10: K59.01] Diagnosis: Type 2 diabetes mellitus with hyperglycemia[ICD10: E11.65] Karmen Ash MD, [facility] CPT-4: 75750 01/27/2016 ([id number]) 89039 EST. P ATIENT, LEVEL IV Diagnosis: Essential (primary) hypertension[ICD10: I10] Diagnosis: Type 2 diabetes mellitus with hyperglycemia[ICD10: E11.65] Diagnosis: Vitamin D deficiency, unspecified[ICD10: E55.9] Diagnosis: Chronic obstructive pulmonary disease, unspecified[ICD10: J44.9] Diagnosis: Mixed hyperlipidemia[ICD10: E78.2] Diagnosis: Tobacco use[ICD10: Z72.0] Karmen Ash MD, [facility] CPT- 4: 89568 11/25/2015 ([id number]) 26865 EST. P ATIENT, LEVEL IV Diagnosis: Type 2 diabetes mellitus with hyperglycemia[ICD10: E11.65] Diagnosis: Essential (primary) hypertension[ICD10: I10] Diagnosis: Vitamin D deficiency, unspecified[ICD10: E55.9] Karmen Ash MD, [facility] CPT-4: 75546 07/28/2015 ([id number]) 36294 EST. P ATIENT, LEVEL III Diagnosis: Type 2 diabetes mellitus with hyperglycemia[ICD10: E11.65] Diagnosis: Essential (primary) hypertension[ICD10: I10] Violeta Ash MD, [facility] CPT-4: 98831 05/26/2015 ([id number]) 35398 EST. P ATIENT, LEVEL III Diagnosis: DIABETES TYPE II[ICD9: 250.00] Diagnosis: COPD (chronic obstructive pulmonary disease)[ICD9: 496] Diagnosis: ESSENTIAL HYPERTENSION[ICD9: 401.9] Diagnosis: Cough[ICD9: 786.2] Violeta Ash MD, [facility] CPT-4: 88548 05/06/2015 ([id number]) 63352 EST. P ATIENT, LEVEL III Diagnosis: COPD (chronic obstructive pulmonary disease)[ICD9: 496] Diagnosis: DIABETES TYPE II[ICD9: 250.00] Diagnosis: Muscle ache[ICD9: 729.1] Karmen Ash MD, [facility] CPT- 4: 28742 04/25/2015 ([id number]) 02562 EST. P ATIENT, LEVEL III Diagnosis: ACTINIC KERATOSIS[ICD9: 702.0] Diagnosis: COPD (chronic obstructive pulmonary disease)[ICD9: 496] Diagnosis: DIABETES TYPE II[ICD9: 250.00] Diagnosis: ACUTE URI[ICD9: 465.9] Violeta Ash MD, [facility] CPT-4: 59852 04/12/2015 ([id number]) 31453 EST. P ATIENT, LEVEL III Diagnosis: DIABETES TYPE II[ICD9: 250.00] Violeta Ash MD, [facility] CPT-4: 97195 03/24/2015 ([id number]) 20041 EST. P ATIENT, LEVEL IV Diagnosis: DIABETES TYPE II[ICD9: 250.00] Diagnosis: Hypoglycemia[ICD9: 251.2] Diagnosis: Skin texture changes[ICD9: 782.8] Violeta Ash MD, [facility] CPT-4: 53676 03/07/2015 ([id number]) 93945 EST. P ATIENT, LEVEL IV Diagnosis: COPD (chronic obstructive pulmonary disease)[ICD9: 496] Diagnosis: Fatigue[ICD9: 780.79] Diagnosis: Insulin dependent diabetes mellitus[ICD9: 250.00] Diagnosis: Unsteady gait[ICD9: 781.2] Maame Ash MD, [facility] CPT-4: 88107 02/17/2015 ([id number]) 31735 EST. P ATIENT, LEVEL IV Diagnosis: BPPV (benign paroxysmal positional vertigo)[ICD9: 386.11] Diagnosis: Impacted cerumen[ICD9: 380.4] Diagnosis: ESSENTIAL HYPERTENSION[ICD9: 401.9] Diagnosis: Insulin dependent diabetes mellitus[ICD9: 250.00] [facility] CPT-4: 64894 12/23/2014 ([id number]) OFFICE [facility] - LEVEL 4 Diagnosis: Insulin dependent diabetes mellitus[ICD9: 250.00] Diagnosis: BPPV (benign paroxysmal positional vertigo)[ICD9: 386.11] Diagnosis: COPD (chronic obstructive pulmonary disease)[ICD9: 496] Diagnosis: Tobacco abuse[ICD9: 305.1] Diagnosis: Osteoarthritis[ICD9: 715.90] [facility] CPT- 4: 07535 12/09/2014 Plan of Care Planned Activity Notes C odes Status Date Appointment: Injection 03/04/2019 Patient Education: Patient Medication [...] check level 03/03/2019 Appointment: Karmen Espinal [facility]el: [facility] [phone] ([address] 03/03/2019 Patient Education: Patient Medication Summary [...] as directed 12/02/2018 Appointment: Karmen Espinal WPtel: [facility] [phone] (30 min) Complex 12/02/2018 Patient Education: Patient Medication Summary Completed 12/02/2018 Patient Education: Diabetes Completed 12/02/2018 Appointment: Injection 11/18/2018 Patient Education: Patient Medication Summary Completed 11/18/2018 Appointment: Injection 11/04/2018 Patient Education: Patient Medication Summary Completed 11/04/2018 Appointment: Karmen Espinal WPtel: [facility] [phone] (30 min) Complex 10/21/2018 Visit Plan: Orthostatic [...] a walker 10/17/2018 Appointment: Karmen Espinal WPtel: [phone] [phone] (30 min) Complex 10/17/2018 Patient Education: Patient [...] to medications. 09/02/2018 Appointment: Karmen Espinal WPtel: [facility] [phone] (15 min) Moderate 09/02/2018 Patient Education: [...] care surrogate. 06/30/2018 Appointment: Karmen Espinal WPtel: [facility] [phone] [facility] - Annual Wellness Visit 06/30/2018 [...] in pain. 06/06/2018 Appointment: Karmen Espinal WPtel: [facility] [phone] (15 min) Moderate 06/06/2018 Patient Education: [...] 2 months 04/04/2018 Appointment: Karmen Espinal WPtel: [facility] [phone] [place] (15 min) Moderate 04/04/2018 Patient Education: Patient Medication Summary Completed 04/04/2018 Care Plan: Cbc With Differential Pending 04/04/2018 Care Plan: Testosterone repeat in 2 months Pending 04/04/2018 Appointment: Karmen Espinal WPtel: [phone] [phone] [place] (15 min) Moderate 03/25/2018 Visit Plan: Low back pain -history of kidney stone-UA negative today -increase fluids and call if pain does not resolve or if any worse. 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 01/30/2018 Appointment: Karmen Espinal WPtel: [address] [facility] [place] [address] (15 min) Moderate 01/30/2018 Patient Education: Patient Medication Summary Completed 01/30/2018 Appointment: Karmen Espinal WPtel: [facility] [phone] (15 min) Moderate 01/28/2018 Appointment: [place] 01/17/2018 Patient Education: Patient Medication Summary Completed 01/17/2018 Visit Plan: Cellulitis - start oral antibiotics as directed, return to clinic as previously directed, call for acute change in symptoms, worsening redness, warmth, discharge. 01/14/2018 Appointment: Karmen Espinal WPtel: [facility] [phone] (10 min) Simple 01/14/2018 Patient Education: Patient [...] less controlled. 01/13/2018 Appointment: Karmen Espinal WPtel: [facility] [place] (15 min) Moderate 01/13/2018 Patient Education: Patient Medication Summary Completed 01/13/2018 [phone] Patient's informed. Referral info ned monroy. Completed 12/04/2017 Visit Plan: Diabetes Mellitus - con eugenie [...] change in blood pressure readings at home. Uygoaywd-axkbve-ikekz to see Dr Villatoro Constipation-start linzess daily 11/19/2017 Appointment: Karmen Espinal WPtel: [facility] [phone] (30 min) Complex 11/19/2017 Patient Education: Patient Medication Summary Completed 11/19/2017 Care Plan: Referral Order bloating, nausea SNOMED-CT : [id number] Pending 11/19/2017 Visit Plan: Low back pain- [...] acute changes. 10/02/2017 Appointment: Brunilda Maravilla WPtel: [address] [place], [place] [address] (15 min) Moderate 10/02/2017 Patient Education: Patient [...] controlled. 07/23/2017 Appointment: [facility] Espinal [facility]Ptel[facility] [phone] [phone] (30 min) Complex 07/23/2017 Patient Education: [...] history 04/25/2017 Appointment: [facility] Espinal [facility]Ptel[facility] [address] [phone] (30 min) Complex 04/25/2017 Patient Education: [...] readings are starting to become less controlled. Liupin-xlesvow-safyp labs 02/19/2017 Appointment: Karmen Espinal WPtel[facility] [address] [phone] (30 min) Complex 02/19/2017 Patient Education: [...] month 01/21/2017 Appointment: [facility]arm[facility] Espinal [facility]Ptel[facility] [phone] [phone] (30 min) Complex 01/21/2017 Patient Education: Patient Medication Summary Completed 01/21/2017 Patient Education: Smoking and Tobacco Addiction Completed 01/21/2017 Patient Education: Hypertension Completed 01/21/2017 Care Plan: Referral Order SNOMED-CT : 835929933 Pending 01/21/2017 Visit Plan: Diabetes Mellitus - [...] changes. 12/20/2016 Appointment: Karmen Espinal WPtel: [address] [phone] (30 min) Complex 12/20/2016 Patient Education: Patient Medication Summary Completed 12/20/2016 Patient Education: Smoking and Tobacco Addiction Completed 12/20/2016 Patient Education: Hypertension Completed 12/20/2016 Appointment: Karmen Espinal WPtel: [address] [phone] (30 min) Complex 09/06/2016 Visit Plan: Diabetes [...] level 08/23/2016 Appointment: Karmen Espinal WPtel: [phone] [phone] (30 min) Complex 08/23/2016 Patient Education: Patient [...] acute changes. 05/22/2016 Appointment: Karmen Espinal WPtel: [facility] [phone] (30 min) Complex 05/22/2016 Patient Education: Patient Medication Summary Completed 05/22/2016 Patient Education: Smoking and Tobacco Addiction Completed 05/22/2016 Care Plan: Cbc With Differential Ordered 05/22/2016 Care Plan: %Hba1C LOIN C : 23682-6 Ordered 05/22/2016 Care Plan: Tsh Ordered 05/22/2016 [...] with update 02/24/2016 Appointment: Karmen Espinal WPtel: [facility] [phone] (30 min) Complex 02/24/2016 Patient Education: [...] this regimen. 01/27/2016 Appointment: Karmen Espinal WPtel: [address] [place], [place] [phone] (30 min) [facility] 01/27/2016 Patient Education: Patient Medication Summary Completed [...] use medication to assist cessation. COPD-sample of the 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 Pldlkzaa-zrvgrgiz-VUJM SIMVASTATIN X 2 WEEKS AND CALL WITH [...] Care Plan: COMPLETE CBC AUTOMATED LOINC : 74321-1 Ordered 03/24/2015 Visit Plan: Diabetes Mellitus - [...] for removal. 03/07/2015 Appointment: Violeta Ash WPtel: [facility] [place] (15 min) Moderate 03/07/2015 Patient Education: Patient [...] Care Plan: COMPLETE CBC AUTOMATED LOINC : 11692-8 Ordered 12/23/2014 Visit Plan: BPPV - Benign [...] next appt 12/09/2014 Appointment: Karmen Espinal WPtel: [facility] [phone] [place] ([place]) New Patient 12/09/2014 Patient Education: Patient Medication Summary Completed 12/09/2014 Patient Education: .Amazing charts Parox ysmal positional vertigo Completed 12/09/2014 Patient Education: Smoking and Tobacco Addiction Completed 12/09/2014 Referral: Hugo Villatoro HPtel:[phone] [facility] [place] Referral Appointment Requested Referral: Luis [...] readings are starting to become less controlled. Dvguom-vyyjctb-wfhyv labs . Cellulitis - start oral antibiotics [...] change in blood pressure readings at home. Rlbisztc-vndtje-qsquc to see Dr Villatoro Constipation-start linzess daily [...] POTENTIAL SIDE EFFECTS AND WORSENING OF SYMPTOMS. Hgtsitim-ljybbnwe-NQCH SIMVASTATIN X 2 WEEKS AND CALL WITH [...] patient is stable, monitor for acute changes. 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
[2020-03-29] MEDS ORDERED: HURRICAINE EXT TUBE (BENZOCAINE) XX PRN (07:45)
--- OUTSIDE RECORDS SUMMARY | 2020-03-29 07:46 | XMS REPORT | CCD ---
Author Author Dick Espinal Organization Violeta Ash MD, [facility] Address [address] [place] [address] Phone Care Team Providers Care Wellness Program Manager Name Role Phone PP Unavailable CCM Unavailable Summary Purpose Interface Exchange Insurance Providers Payer name Policy type / Coverage type Covered constitution party ID Effective Begin Date Effective End Date WPS Medicare Part B Medicare Part B [id number] Unknown Unknown [employer] Medicar e Part B [id number] Unknown Unkn own Family history Father Diagnosis Age At Onset Cancer Unknown Mother Diagnosis Age At Onset Cancer Unknown Social History Social History Element Codes Description Effective Dates Number of cigarettes/day Unknown 20 (One Pack) 03/03/2019 Marital status Unknown M arried 12/09/2014 Employment Unknown Retir ed 12/09/[address]: 67444298 Currently smokes tobacco 12/09/2014 Number of years using tobacco Unknown > 50 12/09/[address]: 004045079 Never drinks alcohol 12/09/2014 Allergies, Adverse Reactions, [...] ICD-10: R26.81 Active 10/17/2018 Unknown Encounter for [facility] adult medical examination with abnormal findings ICD-9: [...] cypiona te 200 mg/mL intramuscular oil RxNorm: 5997973 1/2 Milliliter(s) IM 03/04/2019 03/04/2019 Inactive Yovana WheeleroStar U-30 0 Insulin 300 unit/mL (1.5 mL) subcutaneous pen RxNorm: 1934448 30 Unit(s) SQ QHS 03/03/2019 No Stop Date Active Xanax 0.5 mg tablet RxNorm: 453786 Tablet(s) as needed TAKE ONE TABLET BY M OUTH THREE TIMES A DAY 02/19/2019 04/19/2019 Active Xanax 0.5 mg tablet RxNorm: 750468 Tablet(s) TAKE ONE TABLET BY MOUTH THREE TIMES A DAY 02/19/2019 02/18/2019 Inactive hydrocodone 5 mg-linh taminophen 325 mg tablet RxNorm: 893464 1 Tablet(s) PO Q6-8H as needed 02/16/2019 03/12/2019 Active testosterone cypiona te 200 mg/mL intramuscular oil RxNorm: 7194600 Milliliter(s) IM 02/16/2019 02/16/2019 In active Protonix 40 mg table t,delayed release RxNorm: 308002 TAKE 1 TABLET BY MOUT H DAILY 02/02/2019 01/27/2020 Ac tive - Ref: [id number] simvastatin 40 mg ta blet RxNorm: 691033 TAKE 1 TABLET BY MOUT H DAILY AT BEDTIME 02/02/2019 01/27/2020 Ac tive - Ref: [id number] testosterone cypiona te 200 mg/mL intramuscular oil RxNorm: 5428272 Milliliter(s) IM 01/30/2019 01/30/2019 In active testosterone cypiona te 200 mg/mL intramuscular oil RxNorm: 7201191 1/2 Milliliter(s) IM [id number] 01/16/2019 05/15/2019 Active testosterone cypiona te 200 mg/mL intramuscular oil RxNorm: 1431340 Milliliter(s) IM 01/16/2019 01/16/2019 In active hydrocodone 5 mg-linh taminophen 325 mg tablet RxNorm: 440543 1 Tablet(s) PO Q6-8H as needed 01/14/2019 02/07/2019 Inactive testosterone cypiona te 200 mg/mL intramuscular oil RxNorm: 7490102 Milliliter(s) IM 01/01/2019 01/01/2019 In active Xanax 0.5 mg tablet RxNorm: 405635 1 Tablet(s) PO TID 12/18/2018 02/14/2019 Inactive testosterone cypiona te 200 mg/mL intramuscular oil RxNorm: 5068280 Milliliter(s) IM 12/17/2018 12/17/2018 In active hydrocodone 5 mg-linh taminophen 325 mg tablet RxNorm: 185036 1 Tablet(s) PO Q6-8H as needed 12/15/2018 01/08/2019 Inactive testosterone cypiona te 200 mg/mL intramuscular oil RxNorm: 7688988 Milliliter(s) IM 12/02/2018 12/02/2018 In active testosterone cypiona te 200 mg/mL intramuscular oil RxNorm: 2171297 Milliliter(s) IM 11/18/2018 11/18/2018 In active hydrocodone 5 mg-linh taminophen 325 mg tablet RxNorm: 223825 1 Tablet(s) PO Q6-8H as needed 11/13/2018 12/07/2018 Inactive testosterone cypiona te 200 mg/mL intramuscular oil RxNorm: 3712065 1/2 Milliliter(s) IM [id number] 11/04/2018 01/15/2019 Inactive testosterone cypiona te 200 mg/mL intramuscular oil RxNorm: 1125632 Milliliter(s) IM 11/04/2018 11/04/2018 In active nicotine 21 mg/24 hr daily transdermal patch RxNorm: 709929 1 TD daily 10/31/2018 10/30/2018 In active nicotine 21 mg/24 hr daily transdermal patch RxNorm: 597321 1 TD daily 10/31/2018 11/29/2018 In active meclizine 25 mg tablet RxNorm: 274518 1 Tablet(s) PO Q6 PRN TAKE ONE TABLET BY MOUTH EVERY 6 HOURS NEEDED 10/17/2018 01/14/2019 Inactive hydrocodone 5 mg-linh taminophen 325 mg tablet RxNorm: 447154 1 Tablet(s) PO Q6-8H as needed 10/17/2018 11/10/2018 Inactive metformin 500 mg tablet RxNorm: 559514 Tablet(s) TAKE 1 TABLET BY MOUTH DAILY 10/15/2018 10/09/2019 Ac tive lisinopril 10 mg tablet RxNorm: 436809 TAKE 1 TABLET BY MOUTH TWO TIMES DAILY 10/15/2018 10/09/2019 Ac tive - First Attempt Ref: [id number] testosterone cypiona te 200 mg/mL intramuscular oil RxNorm: 3761375 Milliliter(s) IM 10/14/2018 10/14/2018 In active Xanax 0.5 mg tablet RxNorm: 553054 1 Tablet(s) PO TID 10/03/2018 11/30/2018 Inactive testosterone cypiona te 200 mg/mL intramuscular oil RxNorm: 6491888 1/2 Milliliter(s) IM weekly 10/03/2018 11/03/2018 Inactive testosterone cypiona te 200 mg/mL intramuscular oil RxNorm: 9845899 Milliliter(s) IM 10/03/2018 10/03/2018 In active testosterone cypiona te 200 mg/mL intramuscular oil RxNorm: 8399129 Milliliter(s) IM 09/23/2018 09/23/2018 In active hydrocodone 5 mg-linh taminophen 325 mg tablet RxNorm: 860635 1 Tablet(s) PO Q6-8H as needed 09/22/2018 10/16/2018 Inactive testosterone cypiona te 200 mg/mL intramuscular oil RxNorm: 4495869 1/2 Milliliter(s) IM 09/02/2018 09/02/2018 Inactive testosterone enantha te 200 mg/mL intramuscular oil RxNorm: 061306 Milliliter(s) IM 08/21/2018 08/21/2018 In active hydrocodone 5 mg-linh taminophen 325 mg tablet RxNorm: 666447 1 Tablet(s) PO Q6-8H as needed 08/21/2018 09/14/2018 Inactive testosterone cypiona te 200 mg/mL intramuscular oil RxNorm: 2316884 Milliliter(s) IM 08/08/2018 08/08/2018 In active testosterone cypiona te 200 mg/mL intramuscular oil RxNorm: 1474073 1/2 Milliliter(s) IM 07/28/2018 07/28/2018 Inactive hydrocodone 5 mg-linh taminophen 325 mg tablet RxNorm: 299454 1 Tablet(s) PO Q6-8H as needed 07/21/2018 08/14/2018 Inactive testosterone cypiona te 200 mg/mL intramuscular oil RxNorm: 658118 Milliliter(s) IM 07/16/2018 07/16/2018 In active testosterone cypiona te 200 mg/mL intramuscular oil RxNorm: 482142 Milliliter(s) IM 07/02/2018 07/02/2018 In active Xanax 0.5 mg tablet RxNorm: 409387 1 Tablet(s) PO TID 06/27/2018 08/24/2018 Inactive testosterone cypiona te 200 mg/mL intramuscular oil RxNorm: 384597 Milliliter(s) IM 06/24/2018 06/24/2018 In active hydrocodone 5 mg-linh taminophen 325 mg tablet RxNorm: 308979 1 Tablet(s) PO Q6-8H as needed 06/23/2018 07/17/2018 Inactive testosterone cypiona te 200 mg/mL intramuscular oil RxNorm: 281832 Milliliter(s) IM 06/13/2018 06/13/2018 In active testosterone cypiona te 200 mg/mL intramuscular oil RxNorm: 389506 Milliliter(s) IM 06/05/2018 06/05/2018 In active testosterone cypiona te 200 mg/mL intramuscular oil RxNorm: 0997810 1/2 Milliliter(s) IM weekly 05/30/2018 09/26/2018 Inactive testosterone cypiona te 200 mg/mL intramuscular oil RxNorm: 896772 Milliliter(s) IM 05/30/2018 05/30/2018 In active testosterone cypiona te 200 mg/mL intramuscular oil RxNorm: 579967 Milliliter(s) IM 05/22/2018 05/22/2018 In active hydrocodone 5 mg-linh taminophen 325 mg tablet RxNorm: 530765 1 Tablet(s) PO Q6-8H as needed 05/20/2018 06/13/2018 Inactive testosterone cypiona te 200 mg/mL intramuscular oil RxNorm: 421987 1/2 Milliliter(s) IM 05/12/2018 05/12/2018 Inactive testosterone cypiona te 200 mg/mL intramuscular oil RxNorm: 654322 Milliliter(s) IM 05/02/2018 05/02/2018 In active testosterone cypiona te 200 mg/mL intramuscular oil RxNorm: 386407 1/2 Milliliter(s) IM weekly 04/24/2018 05/29/2018 Inactive testosterone cypiona te 200 mg/mL intramuscular oil RxNorm: 006660 0.5 Milliliter(s) IM 04/24/2018 04/24/2018 Inactive hydrocodone 5 mg-linh taminophen 325 mg tablet RxNorm: 442780 1 Tablet(s) PO Q6-8H as needed 04/22/2018 05/16/2018 Inactive testosterone cypiona te 200 mg/mL intramuscular oil RxNorm: 002487 1/2 Milliliter(s) IM 04/17/2018 04/17/2018 Inactive testosterone cypiona te 200 mg/mL intramuscular oil RxNorm: 141141 1/2 Milliliter(s) IM weekly 04/16/2018 04/23/2018 Inactive Jardiance 10 mg tablet RxNorm: 7712620 1 Tablet(s) PO daily 04/04/2018 12/29/2018 Inactive testosterone cypiona te 200 mg/mL intramuscular oil RxNorm: 827881 1 Milliliter(s) IM monthly 04/04/2018 04/15/2018 Inactive Protonix 40 mg table t,delayed release RxNorm: 795152 1 Tablet(s) PO daily TAKE 1 TABLET BY MOUTH DAILY 04/04/2018 02/01/2019 Inactive - Ref: [id number] hydrocodone 5 mg-linh taminophen 325 mg tablet RxNorm: 247866 1 Tablet(s) PO Q6-8H as needed 03/19/2018 04/12/2018 Inactive Flomax 0.4 mg capsule RxNorm: 230864 1 Capsule(s) PO daily 03/10/2018 03/04/2019 Inactive Urecholine 25 mg tablet RxNorm: 445198 1 Tablet(s) PO BID 03/10/2018 07/07/2018 Inactive ketorolac 60 mg/2 mL intramuscular solution RxNorm: 3328708 Milliliter(s) IM 03/07/2018 03/07/2018 In active metformin 500 mg tablet RxNorm: 304365 Tablet(s) TAKE 1 TABLET BY MOUTH DAILY 02/20/2018 02/13/2019 In active 1 q am and 1/2 tab q pm hydrocodone 5 mg-linh taminophen 325 mg tablet RxNorm: 179326 1 Tablet(s) PO Q6-8H as needed 02/20/2018 03/16/2018 Inactive Kenalog 40 mg/mL bartolome pension for injection RxNorm: 5206454 1.5 Milliliter(s) In j 01/30/2018 01/30/2018 In active hydrocodone 5 mg-linh taminophen 325 mg tablet RxNorm: 395449 1 Tablet(s) PO Q6-8H as needed 01/23/2018 02/16/2018 Inactive Urecholine 25 mg tablet RxNorm: 047679 1 Tablet(s) PO BID 01/22/2018 03/09/2018 Inactive Flomax 0.4 mg capsule RxNorm: 887918 1 Capsule(s) PO daily 01/22/2018 03/09/2018 Inactive Flomax 0.4 mg capsule RxNorm: 722020 1 Capsule(s) PO daily 01/22/2018 01/21/2018 Inactive Urecholine 25 mg tablet RxNorm: 626998 1 Tablet(s) PO BID 01/22/2018 01/21/2018 Inactive testosterone cypiona te 200 mg/mL intramuscular oil RxNorm: 994612 Milliliter(s) IM 01/17/2018 01/17/2018 In active testosterone cypiona te 200 mg/mL intramuscular oil RxNorm: 714908 1 Milliliter(s) IM monthly 01/17/2018 04/03/2018 Inactive doxycycline hyclate 100 mg tablet RxNorm: 117694 1 Tablet(s) PO BID 01/14/2018 01/23/2018 Inactive lisinopril 10 mg tablet RxNorm: 947250 TAKE 1 TABLET BY MOUTH TWO TIMES DAILY 01/14/2018 10/14/2018 In active - First Attempt Ref: [id number] nystatin 100,000 uni t/mL oral suspension RxNorm: 729487 4 Milliliter(s) PO QI D Swish and swallow 01/08/2018 01/07/2018 Inactive nystatin 100,000 uni t/mL oral suspension RxNorm: 363445 4 Milliliter(s) PO QI D Swish and swallow 01/08/2018 01/12/2018 Inactive Xanax 0.5 mg tablet RxNorm: 461052 1 Tablet(s) PO TID 01/08/2018 12/23/2018 Inactive simvastatin 40 mg ta blet RxNorm: 530557 TAKE 1 TABLET BY MOUT H DAILY AT BEDTIME 12/30/2017 12/24/2018 In active - First Attempt Ref: [id number] metformin 500 mg tablet RxNorm: 669974 TAKE 1 TABLET BY MOUTH DAILY 12/30/2017 02/19/2018 Inactive - First Attempt Ref: [id number] hydrocodone 5 mg-linh taminophen 325 mg tablet RxNorm: 498730 1 Tablet(s) PO Q6-8H as needed 12/25/2017 01/18/2018 Inactive Protonix 40 mg table t,delayed release RxNorm: 461059 Tablet(s) TAKE 1 TABL ET BY MOUTH DAILY 11/20/2017 04/03/2018 Inactive - Ref: [id number] Linzess 72 mcg capsule RxNorm: 9609356 1 Capsule(s) PO daily 11/19/2017 No Stop Date Active hydrocodone 5 mg-linh taminophen 325 mg tablet RxNorm: 127964 1 Tablet(s) PO Q6-8H as needed 11/19/2017 12/13/2017 Inactive hydrocodone 5 mg-linh taminophen 325 mg tablet RxNorm: 218657 1 Tablet(s) PO Q6-8H as needed 10/28/2017 11/18/2017 Inactive Xanax 0.5 mg tablet RxNorm: 038803 1 Tablet(s) PO TID 10/25/2017 12/22/2017 Inactive Xanax 0.5 mg tablet RxNorm: 006433 TAKE ONE TABLET BY MOUTH THREE TIMES A D AY 10/24/2017 12/01/2018 In active hydrocodone 5 mg-linh taminophen 325 mg tablet RxNorm: 085063 1 Tablet(s) PO Q6-8H as needed 09/30/2017 10/24/2017 Inactive Protonix 40 mg table t,delayed release RxNorm: 093377 TAKE 1 TABLET BY MOUT H DAILY 09/16/2017 11/19/2017 In active - Ref: [id number] Tojanie SoloStar 300 unit/mL (1.5 mL) subcutaneous insulin pen RxNorm: 0555710 35 Unit(s) SQ QHS 08/30/2017 03/02/2019 Inactive dosage increase hydrocodone 5 mg-linh taminophen 325 mg tablet RxNorm: 302984 1 Tablet(s) PO Q6-8H as needed 08/28/2017 09/29/2017 Inactive hydrocodone 5 mg-linh taminophen 325 mg tablet RxNorm: 855180 1 Tablet(s) PO Q6-8H as needed 07/23/2017 08/24/2017 Inactive lisinopril 10 mg tablet RxNorm: 681209 1 Tablet(s) PO BID Take 1 tablet by mout h daily 07/23/2017 01/13/2018 Inactive hydrocodone 5 mg-linh taminophen 325 mg tablet RxNorm: 450981 1 Tablet(s) PO Q6-8H as needed 06/27/2017 07/22/2017 Inactive Xanax 0.5 mg tablet RxNorm: 151228 1 Tablet(s) PO TID 06/18/2017 10/25/2017 Inactive hydrocodone 5 mg-linh taminophen 325 mg tablet RxNorm: 991312 1 Tablet(s) PO Q6-8H as needed 05/27/2017 06/26/2017 Inactive Levaquin 500 mg tablet RxNorm: 590843 1 Tablet(s) PO daily 05/24/2017 05/23/2017 Inactive Levaquin 500 mg tablet RxNorm: 811806 1 Tablet(s) PO daily 05/24/2017 05/30/2017 Inactive Protonix 40 mg table t,delayed release RxNorm: 332926 Take 1 tablet by mout h daily 04/29/2017 09/15/2017 In active - Ref: [id number] hydrocodone 5 mg-linh taminophen 325 mg tablet RxNorm: 760157 1 Tablet(s) PO Q6-8H as needed 04/25/2017 05/26/2017 Inactive metformin 500 mg tablet RxNorm: 628920 Take 1 tablet by mouth daily 04/08/2017 12/29/2017 Inactive - First Attempt Ref: [id number] hydrocodone 5 mg-linh taminophen 325 mg tablet RxNorm: 857210 1 Tablet(s) PO Q6-8H as needed 03/27/2017 04/24/2017 Inactive hydrocodone 5 mg-linh taminophen 325 mg tablet RxNorm: 559623 1 Tablet(s) PO Q6-8H as needed 02/25/2017 03/26/2017 Inactive Protonix 40 mg table t,delayed release RxNorm: 501616 Tablet(s) Take 1 tabl et by mouth BID 02/25/2017 04/28/2017 Inactive Protonix 40 mg table t,delayed release RxNorm: 211227 Tablet(s) Take 1 tabl et by mouth BID 02/19/2017 02/18/2017 Inactive Protonix 40 mg table t,delayed release RxNorm: 738662 Tablet(s) Take 1 tabl et by mouth BID 02/19/2017 02/24/2017 Inactive lisinopril 10 mg tablet RxNorm: 093392 Take 1 tablet by mouth daily 01/29/2017 07/22/2017 Inactive - First Attempt Ref: [id number] hydrocodone 5 mg-linh taminophen 325 mg tablet RxNorm: 843630 1 Tablet(s) PO Q6-8H as needed 01/25/2017 02/24/2017 Inactive simvastatin 40 mg ta blet RxNorm: 505451 Tablet(s) Take 1 tabl et by mouth daily at bedtime 01/03/2017 12/28/2017 Inactive lisinopril 10 mg tablet RxNorm: 552849 Tablet(s) Take 1 tablet by mouth daily 01/03/2017 01/28/2017 In active Protonix 40 mg table t,delayed release RxNorm: 671143 Tablet(s) Take 1 tabl et by mouth daily 12/28/2016 02/18/2017 Inactive hydrocodone 5 mg-linh taminophen 325 mg tablet RxNorm: 020602 1 Tablet(s) PO Q6-8H as needed 12/26/2016 01/24/2017 Inactive Xanax 0.5 mg tablet RxNorm: 643044 1 Tablet(s) PO TID 12/12/2016 03/11/2017 Inactive simvastatin 40 mg ta blet RxNorm: 498598 Tablet(s) Take 1 tabl et by mouth daily at bedtime 11/30/2016 01/02/2017 Inactive simvastatin 40 mg ta blet RxNorm: 550029 Take 1 tablet by mout h daily at bedtime 11/29/2016 11/29/2016 In active - First Attempt Ref: [id number] Protonix 40 mg table t,delayed release RxNorm: 009686 Take 1 tablet by mout h daily 11/27/2016 12/27/2016 In active - First Attempt Ref: [id number] hydrocodone 5 mg-linh taminophen 325 mg tablet RxNorm: 886598 1 Tablet(s) PO Q6-8H as needed 11/26/2016 12/25/2016 Inactive hydrocodone 5 mg-linh taminophen 325 mg tablet RxNorm: 033452 1 Tablet(s) PO Q8 as needed 10/24/2016 11/25/2016 Inactive Xanax 0.5 mg tablet RxNorm: 097883 1 Tablet(s) PO TID 10/09/2016 12/25/2016 Inactive hydrocodone 5 mg-linh taminophen 325 mg tablet RxNorm: 776769 1 Tablet(s) PO Q8 as needed 09/27/2016 10/23/2016 Inactive lisinopril 10 mg tablet RxNorm: 940272 Take 1 tablet by mouth daily 09/25/2016 01/02/2017 Inactive - First Attempt Ref: [id number] Vitamin D2 50,000 un it capsule RxNorm: 767402 1 Capsule(s) PO QW 09/06/2016 12/01/2018 Inactive hydrocodone 5 mg-linh taminophen 325 mg tablet RxNorm: 445804 1 Tablet(s) PO Q8 as needed 08/28/2016 09/26/2016 Inactive Toujeo SoloStar 300 unit/mL (1.5 mL) subcutaneous insulin pen RxNorm: 8800195 25 Unit(s) SQ QHS 08/23/2016 08/29/2017 Inactive dosage increase hydrocodone 5 mg-linh taminophen 325 mg tablet RxNorm: 950476 1 Tablet(s) PO Q8 as needed 07/26/2016 08/27/2016 Inactive Protonix 40 mg table t,delayed release RxNorm: 682977 Take 1 tablet by mout h daily 07/24/2016 11/26/2016 In active - First Attempt Ref: [id number] hydrocodone 5 mg-linh taminophen 325 mg tablet RxNorm: 041479 1 Tablet(s) PO Q8 as needed 06/19/2016 07/21/2016 Inactive Toujeo SoloStar 300 unit/mL (1.5 mL) subcutaneous insulin pen RxNorm: 2219847 32 Unit(s) SQ QHS 05/30/2016 08/22/2016 Inactive dosage increase hydrocodone 5 mg-linh taminophen 325 mg tablet RxNorm: 932091 1 Tablet(s) PO Q8 as needed 05/22/2016 06/18/2016 Inactive hydrocodone 5 mg-linh taminophen 325 mg tablet RxNorm: 776627 1 Tablet(s) PO Q8 as needed 04/18/2016 05/17/2016 Inactive Protonix 40 mg table t,delayed release RxNorm: 914641 Take 1 tablet by mout h daily 04/05/2016 07/03/2016 In active - Ref: [id number] metformin 500 mg tablet RxNorm: 407423 Take 1 tablet by mouth daily 04/04/2016 07/02/2016 Inactive - Ref: [id number] Xanax 0.5 mg tablet RxNorm: 298831 1 Tablet(s) PO TID 03/30/2016 09/25/2016 Inactive Xanax 0.5 mg tablet RxNorm: 468047 1 Tablet(s) PO TID 03/23/2016 12/25/2016 Inactive hydrocodone 5 mg-linh taminophen 325 mg tablet RxNorm: 154673 1 Tablet(s) PO Q8 as needed 03/06/2016 04/04/2016 Inactive Cipro 500 mg tablet RxNorm: 681212 1 Tablet(s) PO BID 02/24/2016 03/04/2016 Inactive Miralax 17 gram oral powder packet RxNorm: 703033 1 packet PO every oth er day 01/27/2016 No Stop Date Active hydrocodone 5 mg-linh taminophen 325 mg tablet RxNorm: 705077 1 Tablet(s) PO Q8 as needed 01/27/2016 02/25/2016 Inactive lisinopril 10 mg tablet RxNorm: 851419 1 Tablet(s) PO daily 01/12/2016 09/24/2016 Inactive simvastatin 40 mg ta blet RxNorm: 687332 1 Tablet(s) PO QHS 01/12/2016 11/28/2016 Inactive simvastatin 40 mg ta blet RxNorm: 002874 1 Tablet(s) PO QHS 01/11/2016 01/11/2016 Inactive lisinopril 10 mg tablet RxNorm: 099601 1 Tablet(s) PO daily 01/06/2016 01/11/2016 Inactive simvastatin 40 mg ta blet RxNorm: 371763 1 Tablet(s) PO daily 12/28/2015 01/10/2016 Inactive hydrocodone 5 mg-linh taminophen 325 mg tablet RxNorm: 851231 1 Tablet(s) PO Q8 as needed 12/27/2015 01/26/2016 Inactive Xanax 0.5 mg tablet RxNorm: 144852 1 Tablet(s) PO TID 11/30/2015 03/29/2016 Inactive Toujeo SoloStar 300 unit/mL (1.5 mL) subcutaneous insulin pen RxNorm: 6411452 30 Unit(s) SQ QHS 11/25/2015 05/29/2016 Inactive dosage increase meclizine 25 mg tablet RxNorm: 920330 1 Tablet(s) PO Q6 PRN TAKE ONE TABLET BY MOUTH EVERY 6 HOURS NEEDED 11/25/2015 02/22/2016 Inactive omeprazole 20 mg cap jacquelyn,delayed release RxNorm: 379086 1 Capsule(s) PO daily 10/06/2015 01/26/2016 In active Toujeo SoloStar 300 unit/mL (1.5 mL) subcutaneous insulin pen RxNorm: 8717661 35 Unit(s) SQ QHS 08/02/2015 11/24/2015 Inactive dosage increase Vitamin D2 50,000 un it capsule RxNorm: 253961 1 Capsule(s) PO QW 08/02/2015 09/05/2016 Inactive hydrocodone 5 mg-linh taminophen 325 mg tablet RxNorm: 556120 1 Tablet(s) PO Q8 as needed 07/11/2015 12/26/2015 Inactive Xanax 0.5 mg tablet RxNorm: 682927 1 Tablet(s) PO TID 06/30/2015 06/29/2015 Inactive Xanax 0.5 mg tablet RxNorm: 150396 1 Tablet(s) PO TID 06/30/2015 12/25/2015 Inactive hydrocodone 5 mg-linh taminophen 325 mg tablet RxNorm: 401100 1 Tablet(s) PO Q8 as needed 05/06/2015 07/10/2015 Inactive Symbicort 160 mcg-4. 5 mcg/actuation HFA aerosol inhaler RxNorm: 3498894 INH 04/25/2015 No Stop Date Active Levemir FlexTouch 10 0 unit/mL (3 mL) subcutaneous insulin pen RxNorm: 362578 30 Unit(s) SQ QHS 04/25/2015 11/24/2015 Inactive prednisone 20 mg tablet RxNorm: 229622 1 Tablet(s) PO BID 04/25/2015 04/29/2015 Inactive metformin 500 mg tablet RxNorm: 035070 1 Tablet(s) PO daily 04/25/2015 04/03/2016 Inactive amoxicillin 500 mg c apsule RxNorm: 901724 1 Capsule(s) PO TID 04/14/2015 04/13/2015 Inactive amoxicillin 500 mg c apsule RxNorm: 859163 1 Capsule(s) PO TID a nd recommend probiotic tid (otc) 04/14/2015 04/20/2015 Inactive Kenalog 40 mg/mL bartolome pension for injection RxNorm: 7430320 Milliliter(s) Inj 04/12/2015 04/12/2015 In active hydrocodone 5 mg-linh taminophen 325 mg tablet RxNorm: 445713 1 Tablet(s) PO Q8 as needed 03/30/2015 05/05/2015 Inactive Lantus 100 unit/mL s ubcutaneous solution RxNorm: 392918 25 Unit(s) SQ QPM 03/24/2015 04/25/2015 In active meclizine 25 mg tablet RxNorm: 362435 Tablet(s) TAKE ONE TABLET BY MOUTH EVERY 6 HOURS NEEDED 03/08/2015 04/06/2015 Inactive meclizine 25 mg tablet RxNorm: 080868 TAKE ONE TABLET BY MOUTH EVERY 6 HOURS A S NEEDED 02/25/2015 03/03/2015 Inactive Lantus 100 unit/mL s ubcutaneous solution RxNorm: 955926 20 Unit(s) SQ QPM 02/23/2015 03/23/2015 In active Lantus 100 unit/mL s ubcutaneous solution RxNorm: 626502 25 Unit(s) SQ QPM 02/23/2015 02/22/2015 In active hydrocodone 5 mg-linh taminophen 325 mg tablet RxNorm: 617001 1 Tablet(s) PO Q8 as needed 02/17/2015 03/29/2015 Inactive Xanax 0.5 mg tablet RxNorm: 750129 1 Tablet(s) PO TID 02/03/2015 06/29/2015 Inactive Lantus 100 unit/mL s ubcutaneous solution RxNorm: 460475 20 Unit(s) SQ QPM 12/29/2014 02/22/2015 In active Phenergan 12.5 mg re ctal suppository RxNorm: 830497 1 Suppository RTL Q6 PRN 12/23/2014 No Stop Date Active nausea Kenalog 40 mg/mL bartolome pension for injection RxNorm: 2126804 Milliliter(s) Inj 12/23/2014 12/23/2014 In active prednisone 20 mg tablet RxNorm: 234322 2 Tablet(s) PO daily 12/13/2014 12/17/2014 Inactive prednisone 20 mg tablet RxNorm: 683379 2 Tablet(s) PO daily 12/13/2014 12/12/2014 Inactive meclizine 25 mg tablet RxNorm: 565465 1 Tablet(s) PO Q6 PRN 12/09/2014 02/24/2015 Inactive hydrocodone 5 mg-linh taminophen 325 mg tablet RxNorm: 796222 1 Tablet(s) PO Q8 as needed 12/09/2014 02/16/2015 Inactive Vitamin B-12 1,000 m cg/mL oral drops RxNorm: 5363217 1 Milliliter(s) PO d aily No Start Date Active Alphagan P 0.1 % eye drops RxNorm: 383747 1 Drop(s) OPH BID No Start Date Active aspirin 325 mg table t,delayed release RxNorm: 143987 1 Tablet(s) PO daily No Start Date Active Tricor 145 mg tablet RxNorm: 933407 1 Tablet(s) PO daily No Start Date Active vitamin [id number] B1 oral liquid RxNorm: 1,000 Microgram(s) PO daily No Start Date Active atenolol 50 mg tablet RxNorm: 571993 1 Tablet(s) PO daily No Start Date Active Protonix 40 mg table t,delayed release RxNorm: 878986 1 Tablet(s) PO daily No Start Date 04/04/2016 Inactive glipizide 10 mg tablet RxNorm: 086615 1 Tablet(s) PO BID No Start Date 03/22/2015 Inactive Lantus 100 unit/mL s ubcutaneous solution RxNorm: 564575 15 Unit(s) SQ QPM No Start Date 12/28/2014 Inactive lisinopril 10 mg tablet RxNorm: 806587 1 Tablet(s) PO daily No Start Date 01/05/2016 Inactive Vitamin D2 50,000 un it capsule RxNorm: 347350 1 Capsule(s) PO QW No Start Date 08/01/2015 Inactive Toujeo SoloStar 300 unit/mL (1.5 mL) subcutaneous insulin pen RxNorm: 8250526 30 Unit(s) SQ QHS No Start Date 08/01/2015 Inactive simvastatin 40 mg ta blet RxNorm: 599328 1 Tablet(s) PO daily No Start Date 12/27/2015 Inactive testosterone cypiona te 200 mg/mL intramuscular oil RxNorm: 911008 1 Milliliter(s) IM monthly No Start Date 01/16/2018 Inactive hydrocodone 5 mg-linh taminophen 325 mg tablet RxNorm: 774462 1 Tablet(s) PO Q8 as needed No Start Date 12/08/2014 Inactive metformin 500 mg tablet RxNorm: 323924 1 Tablet(s) PO daily No Start Date 04/24/2015 Inactive omeprazole 20 mg cap jacquelyn,delayed release RxNorm: 486241 1 Capsule(s) PO daily No Start Date 10/05/2015 Inactive Flomax 0.4 mg capsule RxNorm: 757815 1 Capsule(s) PO daily No Start Date 03/23/2015 Inactive Medication Administered Medication Codes Instruc tions Start Date Status testosterone cypionate 200 mg/mL intramuscular oil RxNorm: 9452727 1/2Milliliter 03/04/2019 Active testosterone cypionate 200 mg/mL intramuscular oil RxNorm: 7519475 Milliliter 02/16/2019 No longer Active testosterone cypionate 200 mg/mL intramuscular oil RxNorm: 5189825 Milliliter 01/30/2019 No longer Active testosterone cypionate 200 mg/mL intramuscular oil RxNorm: [id number] [facility] 01/16/2019 No longer Active testosterone cypionate 200 mg/mL intramuscular oil RxNorm: 9121684 [facility] 01/01/2019 No longer Active testosterone cypionate 200 mg/mL intramuscular oil RxNorm: 5653967 [facility] 12/17/2018 No longer Active testosterone cypionate 200 mg/mL intramuscular oil RxNorm: 9612201 [facility] 12/02/2018 No longer Active testosterone cypionate 200 mg/mL intramuscular oil RxNorm: 3569954 [facility] 11/18/2018 No longer Active testosterone cypionate 200 mg/mL intramuscular oil RxNorm: 7128293 [facility] 11/04/2018 No longer Active testosterone cypionate 200 mg/mL intramuscular oil RxNorm: 4429079 [facility] 10/14/2018 No longer Active testosterone cypionate 200 mg/mL intramuscular oil RxNorm: 1718026 [facility] 10/03/2018 No longer Active testosterone cypionate 200 mg/mL intramuscular oil RxNorm: 0348491 [facility] 09/23/2018 No longer Active testosterone cypionate 200 mg/mL intramuscular oil RxNorm: 7903947 /2[facility] 09/02/2018 No longer Active testosterone enanthate 200 mg/mL intramuscular oil RxNorm: 449743 [facility] 08/21/2018 No longer Active testosterone cypionate 200 mg/mL intramuscular oil RxNorm: 6964943 [facility] 08/08/2018 No longer Active testosterone cypionate 200 mg/mL intramuscular oil RxNorm: 7050886 /2[facility] 07/28/2018 No longer Active testosterone cypionate 200 mg/mL intramuscular oil RxNorm: 466363 [facility] 07/16/2018 No longer Active testosterone cypionate 200 mg/mL intramuscular oil RxNorm: 306216 [facility] 07/02/2018 No longer Active testosterone cypionate 200 mg/mL intramuscular oil RxNorm: 108869 [facility] 06/24/2018 No longer Active testosterone cypionate 200 mg/mL intramuscular oil RxNorm: 708273 [facility] 06/13/2018 No longer Active testosterone cypionate 200 mg/mL intramuscular oil RxNorm: 106643 [facility] 06/05/2018 No longer Active testosterone cypionate 200 mg/mL intramuscular oil RxNorm: 496207 [facility] 05/30/2018 No longer Active testosterone cypionate 200 mg/mL intramuscular oil RxNorm: 651013 [facility] 05/22/2018 No longer Active testosterone cypionate 200 mg/mL intramuscular oil RxNorm: 245885 /2[facility] 05/12/2018 No longer Active testosterone cypionate 200 mg/mL intramuscular oil RxNorm: 258580 [facility] 05/02/2018 No longer Active testosterone cypionate 200 mg/mL intramuscular oil RxNorm: 427500 0.5[facility] 04/24/2018 No longer Active testosterone cypionate 200 mg/mL intramuscular oil RxNorm: 907432 1/2[facility] 04/17/2018 No longer Active ketorolac 60 mg/2 mL intramuscular solution RxNorm: 2219937 [facility] 03/07/2018 No longer Active Kenalog 40 mg/mL suspension for injection RxNorm: 0950935 1.5[facility] 01/30/2018 No longer Active testosterone cypionate 200 mg/mL intramuscular oil RxNorm: 506931 [facility] 01/17/2018 No longer Active Kenalog 40 mg/mL suspension for injection RxNorm: 6152216 [facility] 04/12/2015 No longer Active Kenalog 40 mg/mL suspension for injection RxNorm: 4707263 [facility] 12/23/2014 No longer Active Immunizations Vaccine [...] Observation Code Item Item Code Result Date Cbc With Differential Ord2 WBC 7.12 K/ul [...] 33.4 pg 12/02/2018 Cbc With Differential Ord2 [place]% 8.0 % 12/02/2018 Cbc With Differential Ord2 [...] 2.13 K/ul 12/02/2018 Cbc With Differential Ord2 [place] ABS# 0.6 K/ul 12/02/2018 Cbc With Differential Ord2 [place] ABS# 0.4 K/ul 12/02/2018 Cbc With Differential Ord2 Baso ABS# 0.0 K/ul 12/02/2018 Testosterone Dtd160 Testo 213.5 ng/dL 12/02/2018 A1C Frequency Fip183 A1CF 80388-4 Last A1C performed at [facility] [place] lab on: 201812/02/2018 Testosterone Acm805 Testo 669.0 ng/dL 09/08/2018 %Hba1C Hka137 % HbA1c 76324-2 7.4 % 09/08/2018 %Hba1C Alt412 Gluc Ave 166 mg/dL 09/08/2018 Lipid Ord30 CHOL 114 mg/dL 09/08/2018 Lipid Ord30 HDL 28.0 mg/dl 09/08/2018 Lipid Ord30 TRIG 154 mg/dL 09/08/2018 Lipid Ord30 LDL 55 mg/dL 09/08/2018 Lipid Ord30 C/HDL 4.1 Ratio 09/08/2018 Comp Metabolic Iku702 NA 137 mEq/L 09/08/2018 Comp Metabolic Btz000 K 4.3 mEq/L 09/08/2018 Comp Metabolic Cuy152 CL 100 mEq/L 09/08/2018 Comp Metabolic Ckj401 CO2 27.0 mEq/L 09/08/2018 Comp Metabolic Iht538 AN ION GAP 14 09/08/2018 Comp Metabolic Mkw272 GL UCOSE 85 mg/dL 09/08/2018 Comp Metabolic Mvv637 Cr eat 1.1 mg/dL 09/08/2018 Comp Metabolic Dtt450 eG FR 70 ml/min/1.73m2 09/08 Comp Metabolic Ggu474 BUN 11 mg/dL 09/08/2018 Comp Metabolic Rno351 B/ C Ratio 10.3 Ratio 09/08/2018 Comp Metabolic Ucm446 CA LCIUM 9.2 mg/dL 09/08/2018 Comp Metabolic Rna472 AL K PHOS 65 U/L 09/08/2018 Comp Metabolic Wmj709 T(SGOT) 16 U/L 09/08/2018 Comp Metabolic Fle189 AL T(SGPT) 14 U/L 09/08/2018 Comp Metabolic Guu829 BI LI T 0.6 mg/dL 09/08/2018 Comp Metabolic Jct531 AL BUMIN 4.0 g/dL 09/08/2018 Comp Metabolic Ycg743 TP RO 6.6 g/dL 09/08/2018 Comp Metabolic Cxe641 GL OB 2.6 g/dL 09/08/2018 Comp Metabolic Exf162 A/ G Ratio 1.6 Ratio 09/08/2018 Comp Metabolic Orn446 Os mo 272 mOsmo 09/08/2018 Vitamin D 25 Oh Xyp6003 VITAMIN D, 25 HYDROXY 37.17 ng/mL 09/08/2018 [...] 33.3 pg 09/08/2018 Cbc With Differential Ord2 [place]% 8.1 % 09/08/2018 Cbc With Differential Ord2 [...] 2.44 K/ul 09/08/2018 Cbc With Differential Ord2 [place] ABS# 0.6 K/ul 09/08/2018 Cbc With Differential Ord2 Eos ABS# 0.3 K/ul 09/08/2018 Cbc With Differential Ord2 Baso ABS# 0.0 K/ul 09/08/2018 Tsh Ord6 TSH (3rd IS) 2.72 uIU/mL 09/08/2018 Comp Metabolic Rrq702 NA 139 mEq/L 04/01/2018 Comp Metabolic Hpg312 K 4.2 mEq/L 04/01/2018 Comp Metabolic Uvr818 CL 102 mEq/L 04/01/2018 Comp Metabolic Nkx295 CO2 29.0 mEq/L 04/01/2018 Comp Metabolic Vhw484 AN ION GAP 12 04/01/2018 Comp Metabolic Eor525 GL UCOSE 87 mg/dL 04/01/2018 Comp Metabolic Ged848 Cr eat 1.1 mg/dL 04/01/2018 Comp Metabolic Pgq080 eG FR 70 ml/min/1.73m2 04/01 Comp Metabolic Gzs450 BUN 21 mg/dL 04/01/2018 Comp Metabolic Xrp531 B/ C Ratio 19.4 Ratio 04/01/2018 Comp Metabolic Cak701 CA LCIUM 9.1 mg/dL 04/01/2018 Comp Metabolic Rvn238 AL K PHOS 60 U/L 04/01/2018 Comp Metabolic Fgf214 T(SGOT) 15 U/L 04/01/2018 Comp Metabolic Jpj928 AL T(SGPT) 18 U/L 04/01/2018 Comp Metabolic Hfj536 BI LI T 0.4 mg/dL 04/01/2018 Comp Metabolic Qom812 AL BUMIN 4.0 g/dL 04/01/2018 Comp Metabolic Tsl003 TP RO 6.5 g/dL 04/01/2018 Comp Metabolic Ywy561 GL OB 2.5 g/dL 04/01/2018 Comp Metabolic Yxg232 A/ G Ratio 1.6 Ratio 04/01/2018 Comp Metabolic Fnl779 Os mo 280 mOsmo 04/01/2018 Lipid Ord30 [...] 34.3 pg 04/01/2018 Cbc With Differential Ord2 [place]% 6.0 % 04/01/2018 Cbc With Differential Ord2 [...] 3.25 K/ul 04/01/2018 Cbc With Differential Ord2 [place] ABS# 0.6 K/ul 04/01/2018 Cbc With Differential Ord2 Eos ABS# 0.4 K/ul 04/01/2018 Cbc With Differential Ord2 Baso ABS# 0.0 K/ul 04/01/2018 %Hba1C Qdz162 % HbA1c 27188-5 8.0 % 04/01/2018 %Hba1C Zzi229 Gluc Ave 183 mg/dL 04/01/2018 Testosterone Wqj576 Testo 111.3 ng/dL 04/01/2018 Testosterone Cvb091 Testo 135.4 ng/dL 01/14/2018 Cbc With Differential [...] 36.0 pg 01/14/2018 Cbc With Differential Ord2 [place]% 6.8 % 01/14/2018 Cbc With Differential Ord2 [...] 2.71 K/ul 01/14/2018 Cbc With Differential Ord2 [place] ABS# 0.8 K/ul 01/14/2018 Cbc With Differential Ord2 Eos ABS# 0.2 K/ul 01/14/2018 Cbc With Differential Ord2 Baso ABS# 0.0 K/ul 01/14/2018 Comp Metabolic Gke291 NA 134 mEq/L 11/20/2017 Comp Metabolic Fhp101 K 4.4 mEq/L 11/20/2017 Comp Metabolic Mwt915 CL 99 mEq/L 11/20/2017 Comp Metabolic Hjo271 CO2 29.0 mEq/L 11/20/2017 Comp Metabolic Bjg656 AN ION GAP 10 11/20/2017 Comp Metabolic Tvr811 GL UCOSE 218 mg/dL 11/20/2017 Comp Metabolic Gwe837 Cr eat 1.0 mg/dL 11/20/2017 Comp Metabolic Zqk125 eG FR 78 ml/min/1.73m2 11/20 Comp Metabolic Ten222 BUN 13 mg/dL 11/20/2017 Comp Metabolic Sjf842 B/ C Ratio 13.3 Ratio 11/20/2017 Comp Metabolic Wca908 CA LCIUM 9.0 mg/dL 11/20/2017 Comp Metabolic Asj823 AL K PHOS 71 U/L 11/20/2017 Comp Metabolic Dgm657 T(SGOT) 18 U/L 11/20/2017 Comp Metabolic Ler128 AL T(SGPT) 17 U/L 11/20/2017 Comp Metabolic Vnw678 BI LI T 0.4 mg/dL 11/20/2017 Comp Metabolic Gdw038 AL BUMIN 4.1 g/dL 11/20/2017 Comp Metabolic Kuc382 TP RO 6.5 g/dL 11/20/2017 Comp Metabolic Acn139 GL OB 2.4 g/dL 11/20/2017 Comp Metabolic Obx191 A/ G Ratio 1.8 Ratio 11/20/2017 Comp Metabolic Gvo057 Os mo 275 mOsmo 11/20/2017 Cbc With [...] 35.2 pg 11/20/2017 Cbc With Differential Ord2 [place]% 7.2 % 11/20/2017 Cbc With Differential Ord2 [...] 3.34 K/ul 11/20/2017 Cbc With Differential Ord2 [place] ABS# 0.6 K/ul 11/20/2017 Cbc With Differential Ord2 Eos ABS# 0.3 K/ul 11/20/2017 Cbc With Differential Ord2 Baso ABS# 0.0 K/ul 11/20/2017 Vitamin D 25 Oh Uwd6581 VITAMIN D, 25 HYDROXY 43.72 ng/mL 11/20/2017 %Hba1C Mvo826 % HbA1c 59892-1 7.4 % 11/20/2017 %Hba1C Vbn609 Gluc Ave 166 mg/dL 11/20/2017 %Hba1C Yrp273 % HbA1c 91975-6 7.2 % 08/20/2017 %Hba1C Eco780 Gluc Ave 160 mg/dL 08/20/2017 Lipid Ord30 [...] 34.7 pg 08/20/2017 Cbc With Differential Ord2 [place]% 7.6 % 08/20/2017 Cbc With Differential Ord2 [...] 2.42 K/ul 08/20/2017 Cbc With Differential Ord2 [place] ABS# 0.6 K/ul 08/20/2017 Cbc With Differential Ord2 Eos ABS# 0.3 K/ul 08/20/2017 Cbc With Differential Ord2 Baso ABS# 0.0 K/ul 08/20/2017 Tsh Ord6 hTSH II 2.27 uIU/mL 08/20/2017 Comp Metabolic Bge700 NA 138 mEq/L 08/20/2017 Comp Metabolic Wvd192 K 4.3 mEq/L 08/20/2017 Comp Metabolic Xfr933 CL 102 mEq/L 08/20/2017 Comp Metabolic Ieg193 CO2 29.0 mEq/L 08/20/2017 Comp Metabolic Xct702 AN ION GAP 11 08/20/2017 Comp Metabolic Mvv033 GL UCOSE 89 mg/dL 08/20/2017 Comp Metabolic Ghc326 Cr eat 1.0 mg/dL 08/20/2017 Comp Metabolic Uat651 eG FR 80 ml/min/1.73m2 08/20 Comp Metabolic Ktq922 BUN 13 mg/dL 08/20/2017 Comp Metabolic Ojf306 B/ C Ratio 13.5 Ratio 08/20/2017 Comp Metabolic Hww271 CA LCIUM 9.2 mg/dL 08/20/2017 Comp Metabolic Xvp908 AL K PHOS 69 U/L 08/20/2017 Comp Metabolic Oqf700 T(SGOT) 18 U/L 08/20/2017 Comp Metabolic Gqc156 AL T(SGPT) 19 U/L 08/20/2017 Comp Metabolic Ppp646 BI LI T 0.6 mg/dL 08/20/2017 Comp Metabolic Swp916 AL BUMIN 4.0 g/dL 08/20/2017 Comp Metabolic Nux395 TP RO 6.6 g/dL 08/20/2017 Comp Metabolic Ptg882 GL OB 2.6 g/dL 08/20/2017 Comp Metabolic Vxk759 A/ G Ratio 1.5 Ratio 08/20/2017 Comp Metabolic Xtc118 Os mo 275 mOsmo 08/20/2017 Vitamin D 25 Oh Jqs7071 VITAMIN D, 25 HYDROXY 30.96 ng/mL 08/20/2017 B12 Fpp654 B12 >1500.00 pg/ml 02/22/2017 Cbc With Differential [...] 35.7 pg 02/20/2017 Cbc With Differential Ord2 [place]% 6.3 % 02/20/2017 Cbc With Differential Ord2 [...] 3.19 K/ul 02/20/2017 Cbc With Differential Ord2 [place] ABS# 0.5 K/ul 02/20/2017 Cbc With Differential Ord2 Eos ABS# 0.4 K/ul 02/20/2017 Cbc With Differential Ord2 Baso ABS# 0.0 K/ul 02/20/2017 Comp Metabolic Dsm254 NA 138 mEq/L 02/20/2017 Comp Metabolic Ydm911 K 4.5 mEq/L 02/20/2017 Comp Metabolic Trw413 CL 101 mEq/L 02/20/2017 Comp Metabolic Qng311 CO2 31.0 mEq/L 02/20/2017 Comp Metabolic Gyp922 AN ION GAP 11 02/20/2017 Comp Metabolic Ppj256 GL UCOSE 120 mg/dL 02/20/2017 Comp Metabolic Dyn438 Cr eat 0.9 mg/dL 02/20/2017 Comp Metabolic Tfi302 eG FR 83 ml/min/1.73m2 02/20 Comp Metabolic Ozl917 BUN 15 mg/dL 02/20/2017 Comp Metabolic Fgh990 B/ C Ratio 16.1 Ratio 02/20/2017 Comp Metabolic Otm740 CA LCIUM 9.1 mg/dL 02/20/2017 Comp Metabolic Xvx313 AL K PHOS 67 U/L 02/20/2017 Comp Metabolic Zmz271 T(SGOT) 15 U/L 02/20/2017 Comp Metabolic Wkt782 AL T(SGPT) 16 U/L 02/20/2017 Comp Metabolic Xrh378 BI LI T 0.5 mg/dL 02/20/2017 Comp Metabolic Ono157 AL BUMIN 4.0 g/dL 02/20/2017 Comp Metabolic Oyx187 TP RO 6.4 g/dL 02/20/2017 Comp Metabolic Ilh082 GL OB 2.4 g/dL 02/20/2017 Comp Metabolic Plo991 A/ G Ratio 1.7 Ratio 02/20/2017 Comp Metabolic Vuw452 Os mo 278 mOsmo 02/20/2017 Tsh Ord6 hTSH II 2.05 uIU/mL 02/20/2017 %Hba1C Jxc805 % HbA1c 74324-6 7.6 % 02/20/2017 %Hba1C Qoj965 Gluc Ave 171 mg/dL 02/20/2017 Vitamin D 25 Oh Ldn0791 VITAMIN D, 25 HYDROXY 44.40 ng/mL 12/21/2016 Comp Metabolic Bux399 NA 131 mEq/L 12/21/2016 Comp Metabolic Vkt068 K 4.2 mEq/L 12/21/2016 Comp Metabolic Kgq852 CL 97 mEq/L 12/21/2016 Comp Metabolic Mis291 CO2 27.0 mEq/L 12/21/2016 Comp Metabolic Qua113 AN ION GAP 11 12/21/2016 Comp Metabolic Jlo171 GL UCOSE 266 mg/dL 12/21/2016 Comp Metabolic Xyb932 Cr eat 0.9 mg/dL 12/21/2016 Comp Metabolic Jbg510 eG FR 88 ml/min/1.73m2 12/21 Comp Metabolic Exb323 BUN 12 mg/dL 12/21/2016 Comp Metabolic Lga717 B/ C Ratio 13.6 Ratio 12/21/2016 Comp Metabolic Xnm466 CA LCIUM 8.6 mg/dL 12/21/2016 Comp Metabolic Rer478 AL K PHOS 69 U/L 12/21/2016 Comp Metabolic Xkp425 T(SGOT) 15 U/L 12/21/2016 Comp Metabolic Yki570 AL T(SGPT) 14 U/L 12/21/2016 Comp Metabolic Zih345 BI LI T 0.3 mg/dL 12/21/2016 Comp Metabolic Lkc400 AL BUMIN 3.7 g/dL 12/21/2016 Comp Metabolic Mlf353 TP RO 5.9 g/dL 12/21/2016 Comp Metabolic Drv195 GL OB 2.2 g/dL 12/21/2016 Comp Metabolic Ttw184 A/ G Ratio 1.7 Ratio 12/21/2016 Comp Metabolic Wta480 Os mo 272 mOsmo 12/21/2016 Cbc With [...] 34.6 pg 12/21/2016 Cbc With Differential Ord2 [place]% 6.9 % 12/21/2016 Cbc With Differential Ord2 [...] 2.05 K/ul 12/21/2016 Cbc With Differential Ord2 [place] ABS# 0.4 K/ul 12/21/2016 Cbc With Differential Ord2 Eos ABS# 0.2 K/ul 12/21/2016 Cbc With Differential Ord2 Baso ABS# 0.0 K/ul 12/21/2016 Comp Metabolic Aii458 NA 138 mEq/L 09/03/2016 Comp Metabolic Lxx905 K 4.5 mEq/L 09/03/2016 Comp Metabolic Tca711 CL 102 mEq/L 09/03/2016 Comp Metabolic Yla216 CO2 30.0 mEq/L 09/03/2016 Comp Metabolic Pmg508 AN ION GAP 11 09/03/2016 Comp Metabolic Olm233 GL UCOSE 113 mg/dL 09/03/2016 Comp Metabolic Svc154 Cr eat 1.0 mg/dL 09/03/2016 Comp Metabolic Rjn948 eG FR 81 ml/min/1.73m2 09/03 Comp Metabolic Fcv735 BUN 10 mg/dL 09/03/2016 Comp Metabolic Ifr834 B/ C Ratio 10.5 Ratio 09/03/2016 Comp Metabolic Hyr390 CA LCIUM 9.1 mg/dL 09/03/2016 Comp Metabolic Oxh309 AL K PHOS 71 U/L 09/03/2016 Comp Metabolic Eyv402 T(SGOT) 18 U/L 09/03/2016 Comp Metabolic Zug445 AL T(SGPT) 17 U/L 09/03/2016 Comp Metabolic Ycu470 BI LI T 0.6 mg/dL 09/03/2016 Comp Metabolic Jnh536 AL BUMIN 4.1 g/dL 09/03/2016 Comp Metabolic Nyt613 TP RO 6.4 g/dL 09/03/2016 Comp Metabolic Lpx945 GL OB 2.3 g/dL 09/03/2016 Comp Metabolic Wap829 A/ G Ratio 1.8 Ratio 09/03/2016 Comp Metabolic Cwb458 Os mo 276 mOsmo 09/03/2016 Vitamin D 25 Oh Mhl3461 VITAMIN D, 25 HYDROXY 28.23 ng/mL 09/03/2016 [...] 34.4 pg 09/03/2016 Cbc With Differential Ord2 [place]% 8.9 % 09/03/2016 Cbc With Differential Ord2 [...] 3.34 K/ul 09/03/2016 Cbc With Differential Ord2 [place] ABS# 0.7 K/ul 09/03/2016 Cbc With Differential Ord2 Eos ABS# 0.4 K/ul 09/03/2016 Cbc With Differential Ord2 Baso ABS# 0.0 K/ul 09/03/2016 Lipid Ord30 CHOL 120 mg/dL 09/03/2016 Lipid Ord30 HDL 33.0 mg/dl 09/03/2016 Lipid Ord30 TRIG 161 mg/dL 09/03/2016 Lipid Ord30 LDL 55 mg/dL 09/03/2016 Lipid Ord30 C/HDL 3.6 Ratio 09/03/2016 %Hba1C Eox176 % HbA1c 83197-9 7.5 % 09/03/2016 %Hba1C Gyq794 Gluc Ave 169 mg/dL 09/03/2016 Tsh Ord6 hTSH II 1.50 uIU/mL 05/23/2016 %Hba1C Fhr565 % HbA1c 31496-4 7.6 % 05/23/2016 %Hba1C Fhk610 Gluc Ave 171 mg/dL 05/23/2016 Comp Metabolic Dcn773 NA 135 mEq/L 05/23/2016 Comp Metabolic Pdo508 K 4.4 mEq/L 05/23/2016 Comp Metabolic Vlf875 CL 99 mEq/L 05/23/2016 Comp Metabolic Ush825 CO2 28.0 mEq/L 05/23/2016 Comp Metabolic Wzk544 AN ION GAP 12 05/23/2016 Comp Metabolic Pzr974 GL UCOSE 257 mg/dL 05/23/2016 Comp Metabolic Tlv253 Cr eat 0.8 mg/dL 05/23/2016 Comp Metabolic Qrx728 eG FR 95 ml/min/1.73m2 05/23 Comp Metabolic Env311 BUN 11 mg/dL 05/23/2016 Comp Metabolic Mbp648 B/ C Ratio 13.3 Ratio 05/23/2016 Comp Metabolic Wcq718 CA LCIUM 9.0 mg/dL 05/23/2016 Comp Metabolic Ubt548 AL K PHOS 82 U/L 05/23/2016 Comp Metabolic Dfb756 T(SGOT) 21 U/L 05/23/2016 Comp Metabolic Wra761 AL T(SGPT) 20 U/L 05/23/2016 Comp Metabolic Lmt089 BI LI T 0.3 mg/dL 05/23/2016 Comp Metabolic Tmj768 AL BUMIN 4.0 g/dL 05/23/2016 Comp Metabolic Kxu871 TP RO 6.4 g/dL 05/23/2016 Comp Metabolic Tgj712 GL OB 2.4 g/dL 05/23/2016 Comp Metabolic Lct858 A/ G Ratio 1.6 Ratio 05/23/2016 Comp Metabolic Yhq938 Os mo 278 mOsmo 05/23/2016 Cbc With [...] 34.5 pg 05/23/2016 Cbc With Differential Ord2 [place]% 6.1 % 05/23/2016 Cbc With Differential Ord2 [...] 2.38 K/ul 05/23/2016 Cbc With Differential Ord2 [place] ABS# 0.4 K/ul 05/23/2016 Cbc With Differential Ord2 Eos ABS# 0.2 K/ul 05/23/2016 Cbc With Differential Ord2 Baso ABS# 0.0 K/ul 05/23/2016 B12 Cmh505 B12 597.00 pg/ml 05/23/2016 Metabolic Ord15 NA [...] 0.92 uIU/mL 07/29/2015 Vitamin D 25 Oh Xvd0101 VITAMIN D, 25 HYDROXY 26.93 ng/mL 07/29/2015 %Hba1C Glm891 % HbA1c 17744-7 8.8 % 07/29/2015 %Hba1C Xav593 Gluc Ave 206 mg/dL 07/29/2015 Cbc With [...] Ord2 RDW 14.9 % 07/29/2015 Comp Metabolic Jcx945 NA 138 mEq/L 07/29/2015 Comp Metabolic Pdu724 K 4.4 mEq/L 07/29/2015 Comp Metabolic Pso255 CL 102 mEq/L 07/29/2015 Comp Metabolic Gkv477 CO2 28.0 mEq/L 07/29/2015 Comp Metabolic Oke870 AN ION GAP 12 07/29/2015 Comp Metabolic Coo350 GL UCOSE 261 mg/dL 07/29/2015 Comp Metabolic Bhc725 Cr eat 1.0 mg/dL 07/29/2015 Comp Metabolic Mqq225 eG FR 77 ml/min/1.73m2 07/29 Comp Metabolic Juq919 BUN 13 mg/dL 07/29/2015 Comp Metabolic Mia663 B/ C Ratio 13.0 Ratio 07/29/2015 Comp Metabolic Dxm096 CA LCIUM 9.1 mg/dL 07/29/2015 Comp Metabolic Krk170 AL K PHOS 64 U/L 07/29/2015 Comp Metabolic Vcj162 T(SGOT) 20 U/L 07/29/2015 Comp Metabolic Pog357 AL T(SGPT) 22 U/L 07/29/2015 Comp Metabolic Tib263 BI LI T 0.4 mg/dL 07/29/2015 Comp Metabolic Oqi358 AL BUMIN 4.0 g/dL 07/29/2015 Comp Metabolic Xes629 TP RO 6.1 g/dL 07/29/2015 Comp Metabolic Kum077 GL OB 2.1 g/dL 07/29/2015 Comp Metabolic Vgb842 A/ G Ratio 1.9 Ratio 07/29/2015 Comp Metabolic Bya694 Os mo 285 mOsmo 07/29/2015 Cbc With [...] Ord2 RDW 13.1 % 05/06/2015 Comp Metabolic Wky076 NA 134 mEq/L 05/06/2015 Comp Metabolic Uuu417 K 4.4 mEq/L 05/06/2015 Comp Metabolic Bmm602 CL 98 mEq/L 05/06/2015 Comp Metabolic Wkw706 CO2 29.0 mEq/L 05/06/2015 Comp Metabolic Bex404 AN ION GAP 11 05/06/2015 Comp Metabolic Exe685 GL UCOSE 321 mg/dL 05/06/2015 Comp Metabolic Khk920 Cr eat 1.0 mg/dL 05/06/2015 Comp Metabolic Flz069 eG FR 78 ml/min/1.73m2 05/06 Comp Metabolic Fwm353 BUN 20 mg/dL 05/06/2015 Comp Metabolic Ahf111 B/ C Ratio 20.4 Ratio 05/06/2015 Comp Metabolic Der255 CA LCIUM 9.5 mg/dL 05/06/2015 Comp Metabolic Csf871 AL K PHOS 62 U/L 05/06/2015 Comp Metabolic Rro214 T(SGOT) 21 U/L 05/06/2015 Comp Metabolic Jxe575 AL T(SGPT) 37 U/L 05/06/2015 Comp Metabolic Mwb078 BI LI T 0.4 mg/dL 05/06/2015 Comp Metabolic Udg554 AL BUMIN 3.8 g/dL 05/06/2015 Comp Metabolic Wck465 TP RO 6.1 g/dL 05/06/2015 Comp Metabolic Mni461 GL OB 2.3 g/dL 05/06/2015 Comp Metabolic Bhz965 A/ G Ratio 1.7 Ratio 05/06/2015 Comp Metabolic Llp346 Os mo 283 mOsmo 05/06/2015 Tsh Ord6 hTSH II 1.65 uIU/mL 02/18/2015 B12 Lhe602 B12 605.00 pg/ml 02/18/2015 %Hba1C Stw160 % HbA1c 46381-3 8.3 % 02/18/2015 %Hba1C Hkv774 Gluc Ave 192 mg/dL 02/18/2015 Cbc With [...] Ord2 RDW 13.9 % 02/17/2015 Comp Metabolic Rgw566 NA 137 mEq/L 02/17/2015 Comp Metabolic Lxr830 K 4.4 mEq/L 02/17/2015 Comp Metabolic Iws574 CL 100 mEq/L 02/17/2015 Comp Metabolic Hmg560 CO2 31.0 mEq/L 02/17/2015 Comp Metabolic Nqx802 AN ION GAP 10 02/17/2015 Comp Metabolic Djo053 GL UCOSE 307 mg/dL 02/17/2015 Comp Metabolic Alw665 Cr eat 1.0 mg/dL 02/17/2015 Comp Metabolic Gep948 eG FR 74 ml/min/1.73m2 02/17 Comp Metabolic Znx538 BUN 22 mg/dL 02/17/2015 Comp Metabolic Gln327 B/ C Ratio 21.4 Ratio 02/17/2015 Comp Metabolic Tuy209 CA LCIUM 9.5 mg/dL 02/17/2015 Comp Metabolic Rxz974 AL K PHOS 78 U/L 02/17/2015 Comp Metabolic Jbg418 T(SGOT) 18 U/L 02/17/2015 Comp Metabolic Niy972 AL T(SGPT) 32 U/L 02/17/2015 Comp Metabolic Tzv362 BI LI T 0.5 mg/dL 02/17/2015 Comp Metabolic Cmo405 AL BUMIN 4.3 g/dL 02/17/2015 Comp Metabolic Rfu954 TP RO 6.7 g/dL 02/17/2015 Comp Metabolic Cdn692 GL OB 2.4 g/dL 02/17/2015 Comp Metabolic Gsh759 A/ G Ratio 1.8 Ratio 02/17/2015 Comp Metabolic Hzw009 Os mo 289 mOsmo 02/17/2015 Review of [...] No eye discharge Eyes No eye pain 08/13/2 015 Ears/Nose/Throat/Neck cerumen 03/24/2015 Ears/Nose/Throat/Neck No hearing [...] gingiva 02/19/2017 None Full Exam - General 1995 Ears/Nose/Throat lips/teeth/gingiva Overall: no masses 02/19/2017 None [...] inspection of skin Location: face 03/07/2015 on jewish, cheeks,actinic keratosis with irritation on left cheek - left jewish - croptherapy on these two lesions - [...] Procedure Codes Date THER/PROPH/DIAG INJ SC/IM CPT-4: 28883 03/04/2019 THER/PROPH/DIAG INJ SC/IM CPT-4: 71826 02/16/2019 THER/PROPH/DIAG INJ SC/IM CPT-4: 34329 01/30/2019 THER/PROPH/DIAG INJ SC/IM CPT-4: 98878 01/16/2019 THER/PROPH/DIAG INJ SC/IM CPT-4: 07077 01/01/2019 THER/PROPH/DIAG INJ SC/IM CPT-4: 99093 12/17/2018 THER/PROPH/DIAG INJ SC/IM CPT-4: 75988 12/02/2018 THER/PROPH/DIAG INJ SC/IM CPT-4: 53674 11/18/2018 THER/PROPH/DIAG INJ SC/IM CPT-4: 55072 11/04/2018 THER/PROPH/DIAG INJ SC/IM CPT-4: 40439 10/14/2018 THER/PROPH/DIAG INJ SC/IM CPT-4: 84720 10/03/2018 THER/PROPH/DIAG INJ SC/IM CPT-4: 68085 09/23/2018 THER/PROPH/DIAG INJ SC/IM CPT-4: 01737 09/02/2018 THER/PROPH/DIAG INJ SC/IM CPT-4: 20697 08/21/2018 THER/PROPH/DIAG INJ SC/IM CPT-4: 71244 08/08/2018 THER/PROPH/DIAG INJ SC/IM CPT-4: 20802 07/28/2018 THER/PROPH/DIAG INJ SC/IM CPT-4: 62250 07/16/2018 THER/PROPH/DIAG INJ SC/IM CPT-4: 18454 07/02/2018 PPPS, SUBSEQ VISIT CPT- 4: G0439 06/30/2018 THER/PROPH/DIAG INJ SC/IM CPT-4: 87317 06/24/2018 THER/PROPH/DIAG INJ SC/IM CPT-4: 41527 06/13/2018 ADMIN INFLUENZA VIRU S VAC CPT-4: G0008 06/06/2018 FLU VACC PRSV FREE I NC ANTIG CPT-4: 21569 06/06/2018 THER/PROPH/DIAG INJ SC/IM CPT-4: 42933 06/05/2018 THER/PROPH/DIAG INJ SC/IM CPT-4: 98204 05/30/2018 THER/PROPH/DIAG INJ SC/IM CPT-4: 71631 05/22/2018 THER/PROPH/DIAG INJ SC/IM CPT-4: 97689 05/12/2018 THER/PROPH/DIAG INJ SC/IM CPT-4: 08214 05/02/2018 THER/PROPH/DIAG INJ SC/IM CPT-4: 95579 04/24/2018 THER/PROPH/DIAG INJ SC/IM CPT-4: 19327 04/17/2018 KETOROLAC TROMETHAMI NE INJ CPT-4: J1885 03/07/2018 URINALYSIS NONAUTO W /O SCOPE CPT-4: 99284 03/07/2018 THER/PROPH/DIAG INJ SC/IM CPT-4: 13025 02/20/2018 TRIAMCINOLONE ACET I [place] NOS CPT-4: J3301 01/30/2018 THER/PROPH/DIAG INJ SC/IM CPT-4: 88187 01/17/2018 TOBACCO-USE GEOMETRICIAN 3-[address]: 528592250 CPT-4: G0436 04/25/2017 ADMIN INFLUENZA VIRU S VAC CPT-4: G0008 04/25/2017 ADMIN PNEUMOCOCCAL V ACCINE SNOMED CT: 34975466 CPT-4: G0009 04/25/2017 PNEUMOCOCCAL VACC [address]: 19052693 CPT-4: 03281 04/25/2017 FLU VACC PRSV FREE I NC ANTIG CPT-4: 59922 04/25/2017 ADMIN INFLUENZA VIRU S VAC CPT-4: G0008 05/22/2016 FLU VACC 4 TELLY 3 YRS PLUS IM Formatting Model/CDA Sections, Assigned to/Angela Clemons SNOMED CT: 19974621 CPT-4: 13990Vrhvesg 05/22/2016 TOBACCO-USE GEOMETRICIAN 3-[address]: 563227418 CPT-4: G0436 11/25/2015 URINALYSIS NONAUTO W /O SCOPE CPT-4: 21682 05/09/2015 TRIAMCINOLONE ACET I [place] NOS CPT-4: J3301 04/12/2015 DESTRUCT PREMALG LESION CPT-4: 08510 03/07/2015 DESTRUCT PREMALG LES 2-14 CPT-4: 28128 03/07/2015 REMOVE IMPACTED EAR WAX UNI CPT-4: 14549 12/31/2014 THER/PROPH/DIAG INJ SC/IM CPT-4: 62449 12/23/2014 TRIAMCINOLONE ACET I [place] NOS CPT-4: J3301 12/23/2014 Vital Signs Date Vital 03/03/2019 Blood Pressure 1: 150/72 Code: 8480-6 BMI: 20.6 Code: 56229-5 Heart Rate 1: 63 bpm Height: 5'11" SpO2: 100% Weight: 147 lbs 8 oz 12/02/2018 Blood Pressure 1: 140/70 Code: 8480-6 BMI: 21.9 Code: 08742-1 Heart Rate 1: 61 bpm Height: 5'11" SpO2: 94% Weight: 157 lbs 10/17/2018 Blood Pressure 1: 124/54 Code: 8480-6 BMI: 21.9 Code: 58494-8 Heart Rate 1: 64 bpm Height: 5'11" SpO2: 93% Weight: 157 lbs 09/02/2018 Blood Pressure 1: 140/80 Code: 8480-6 BMI: 21.2 Code: 36123-3 Heart Rate 1: 68 bpm Height: 5'11" SpO2: 97% Weight: 152 lbs 06/30/2018 BMI: 21.8 Code: 17150-5 Height: 5'11" Weight: 156 lbs 06/06/2018 Blood Pressure 1: 128/76 Code: 8480-6 BMI: 22.0 Code: 51950-6 Heart Rate 1: 81 bpm Height: 5'11" SpO2: 92% Weight: 158 lbs 04/04/2018 Blood Pressure 1: 124/70 Code: 8480-6 BMI: 20.8 Code: 83567-9 Heart Rate 1: 65 bpm Height: 5'11" SpO2: 95% Weight: 149 lbs 03/07/2018 Blood Pressure 1: 148/70 Code: 8480-6 BMI: 21.2 Code: 27405-8 Heart Rate 1: 66 bpm Height: 5'11" SpO2: 94% Weight: 152 lbs 02/20/2018 Blood Pressure 1: 134/58 Code: 8480-6 BMI: 20.5 Code: 32509-7 Heart Rate 1: 61 bpm Height: 5'11" SpO2: 92% Weight: 147 lbs 01/30/2018 Blood Pressure 1: 158/68 Code: 8480-6 BMI: 21.5 Code: 80471-5 Heart Rate 1: 71 bpm Height: 5'11" SpO2: 92% Weight: 154 lbs 01/14/2018 Blood Pressure 1: 156/70 Code: 8480-6 Height: Weight: 01/13/2018 Blood Pressure 1: 148/62 Code: 8480-6 BMI: 20.9 Code: 41591-1 Heart Rate 1: 54 bpm Height: 5'11" SpO2: 97% Weight: 150 lbs 11/19/2017 Blood Pressure 1: 150/60 Code: 8480-6 BMI: 21.8 Code: 17125-5 Heart Rate 1: 63 bpm Height: 5'11" SpO2: 98% Weight: 156 lbs 10/02/2017 Blood Pressure 1: 168/60 Code: 8480-6 BMI: 21.9 Code: 56464-3 Heart Rate 1: 52 bpm Height: 5'11" SpO2: 97% Weight: 157 lbs 07/23/2017 Blood Pressure 1: 170/70 Code: 8480-6 BMI: 21.8 Code: 02867-8 Heart Rate 1: 65 bpm Height: 5'11" SpO2: 98% Weight: 156 lbs 04/25/2017 Blood Pressure 1: 138/60 Code: 8480-6 BMI: 21.6 Code: 15909-5 Heart Rate 1: 55 bpm Height: 5'11" SpO2: 93% Weight: 155 lbs 02/19/2017 Blood Pressure 1: 138/64 Code: 8480-6 BMI: 21.3 Code: 82708-4 Heart Rate 1: 52 bpm Height: 5'11" SpO2: 96% Weight: 152 lbs 8 oz 01/21/2017 Blood Pressure 1: 160/68 Code: 8480-6 BMI: 21.3 Code: 90422-8 Heart Rate 1: 62 bpm Height: 5'11" SpO2: 96% Weight: 153 lbs 12/20/2016 Blood Pressure 1: 124/66 Code: 8480-6 BMI: 21.5 Code: 73561-1 Height: 5'11" Weight: 154 lbs 08/23/2016 Blood Pressure 1: 142/52 Code: 8480-6 BMI: 21.2 Code: 07202-6 Heart Rate 1: 54 bpm Height: 5'11" SpO2: 96% Weight: 152 lbs 05/22/2016 Blood Pressure 1: 130/76 Code: 8480-6 BMI: 21.5 Code: 87191-5 Heart Rate 1: 78 bpm Height: 5'11" SpO2: 92% Weight: 154 lbs 02/24/2016 Blood Pressure 1: 128/80 Code: 8480-6 BMI: 21.2 Code: 98701-7 Heart Rate 1: 74 bpm Height: 5'11" SpO2: 96% Weight: 152 lbs 01/27/2016 Blood Pressure 1: 144/60 Code: 8480-6 BMI: 21.2 Code: 46824-5 Heart Rate 1: 74 bpm Height: 5'11" SpO2: 97% Weight: 152 lbs 11/25/2015 Blood Pressure 1: 110/52 Code: 8480-6 BMI: 21.9 Code: 11746-5 Heart Rate 1: 65 bpm Height: 5'11" SpO2: 92% Weight: 157 lbs 07/28/2015 Blood Pressure 1: 138/62 Code: 8480-6 BMI: 21.8 Code: 11592-4 Heart Rate 1: 63 bpm Height: 5'11" SpO2: 91% Weight: 156 lbs 05/26/2015 Blood Pressure 1: 120/58 Code: 8480-6 BMI: 21.5 Code: 96658-3 Heart Rate 1: 99 bpm Height: 5'11" SpO2: 96% Weight: 154 lbs 05/06/2015 Blood Pressure 1: 120/58 Code: 8480-6 BMI: 21.2 Code: 97797-6 Heart Rate 1: 66 bpm Height: 5'11" SpO2: 96% Weight: 152 lbs 04/25/2015 Blood Pressure 1: 136/62 Code: 8480-6 BMI: 21.2 Code: 78419-5 Heart Rate 1: 63 bpm Height: 5'11" SpO2: 97% Weight: 152 lbs 04/12/2015 Blood Pressure 1: 160/58 Code: 8480-6 BMI: 21.6 Code: 07805-8 Heart Rate 1: 62 bpm Height: 5'11" Weight: 155 lbs 03/24/2015 Blood Pressure 1: 138/68 Code: 8480-6 BMI: 22.0 Code: 28243-3 Heart Rate 1: 65 bpm Height: 5'11" SpO2: 96% Weight: 158 lbs 03/07/2015 Blood Pressure 1: 116/52 Code: 8480-6 BMI: 22.2 Code: 41725-3 Heart Rate 1: 64 bpm Height: 5'11" SpO2: 97% Weight: 159 lbs 02/17/2015 Blood Pressure 1: 148/58 Code: 8480-6 BMI: 21.3 Code: 68516-9 Heart Rate 1: 63 bpm Height: 5'11" SpO2: 97% Weight: 153 lbs 12/31/2014 Blood Pressure 1: 100/60 Code: 8480-6 BMI: 21.8 Code: 92186-5 Heart Rate 1: 68 bpm Height: 5'11" Weight: 156 lbs 12/23/2014 Blood Pressure 1: 148/64 Code: 8480-6 BMI: 21.9 Code: 42591-9 Heart Rate 1: 64 bpm Height: 5'11" [...] 11/25/2015 None cough Location in the jorge 11/25/2015 None cough Quality acute 11/25/2015 None [...] Encounters Encounter Performer Loca tion Codes Date ([id number]) 98049 EST. P ATIENT, LEVEL IV Diagnosis: Chronic obstructive pulmonary disease, unspecified[ICD10: J44.9] Diagnosis: Mixed hyperlipidemia[ICD10: E78.2] Diagnosis: Type 2 diabetes mellitus with hyperglycemia[ICD10: E11.65] Diagnosis: Testicular dysfunction, unspecified[ICD10: E29.9] Diagnosis: Abnormal weight loss[ICD10: R63.4] Karmen Ash MD, [facility] CPT-4: 52755 03/03/2019 ([id number]) 36021 EST. P ATIENT, LEVEL IV Diagnosis: Chronic obstructive pulmonary disease, unspecified[ICD10: J44.9] Diagnosis: Type 2 diabetes mellitus with hyperglycemia[ICD10: E11.65] Diagnosis: Testicular dysfunction, unspecified[ICD10: E29.9] Diagnosis: Other insomnia[ICD10: G47.09] Karmen Ash MD, [facility] CPT- 4: 23691 12/02/2018 ([id number]) 93380 EST. P ATIENT, LEVEL III Diagnosis: Orthostatic hypotension[ICD10: I95.1] Diagnosis: Low back pain[ICD10: M54.5] Diagnosis: Unsteadiness on feet[ICD10: R26.81] Karmen Ash MD, [facility] CPT-4: 90963 10/17/2018 ([id number]) 56939 EST. P ATIENT, LEVEL IV Diagnosis: Essential (primary) hypertension[ICD10: I10] Diagnosis: Chronic obstructive pulmonary disease, unspecified[ICD10: J44.9] Diagnosis: Type 2 diabetes mellitus with hyperglycemia[ICD10: E11.65] Diagnosis: Vitamin D deficiency, unspecified[ICD10: E55.9] Diagnosis: Mixed hyperlipidemia[ICD10: E78.2] Diagnosis: Testicular dysfunction, unspecified[ICD10: E29.9] Karmen Ash MD, [facility] CPT-4: 14495 09/02/2018 ([id number]) 61412 EST. P ATIENT, LEVEL IV Diagnosis: Cellulitis of face[ICD10: L03.211] Diagnosis: Type 2 diabetes mellitus without complications[ICD10: E11.9] Diagnosis: Essential (primary) hypertension[ICD10: I10] Diagnosis: Encounter for immunization[ICD10: Z23] [facility] CPT-4: 39457 06/06/2018 ([id number]) 13031 EST. P ATIENT, LEVEL IV Diagnosis: Essential (primary) hypertension[ICD10: I10] Diagnosis: Chronic obstructive pulmonary disease, unspecified[ICD10: J44.9] Diagnosis: Testicular dysfunction, unspecified[ICD10: E29.9] Diagnosis: Type 2 diabetes mellitus with hyperglycemia[ICD10: E11.65] Karmen Ash MD, [facility] CPT-4: 02166 04/04/2018 ([id number]) 52254 EST. P ATIENT, LEVEL III Diagnosis: Low back pain[ICD10: M54.5] Diagnosis: Dysuria[ICD10: R30.0] [facility] CPT-4: 49850 03/07/2018 ([id number]) 36258 EST. P ATIENT, LEVEL IV Diagnosis: Essential (primary) hypertension[ICD10: I10] Diagnosis: Chronic obstructive pulmonary disease, unspecified[ICD10: J44.9] Diagnosis: Abnormal weight loss[ICD10: R63.4] Diagnosis: Low back pain[ICD10: M54.5] Diagnosis: Testicular dysfunction, unspecified[ICD10: E29.9] Diagnosis: Type 2 diabetes mellitus with hyperglycemia[ICD10: E11.65] Karmen Ash MD, [facility] CPT-4: 05172 02/20/2018 ([id number]) 67432 EST. P ATIENT, LEVEL III Diagnosis: Chronic obstructive pulmonary disease with (acute) exacerbation[ICD10: J44.1] Karmen Ash MD, [facility] CPT-4: 65451 01/30/2018 81398 EST. PATIENT, LEVEL II Diagnosis: Insect bite (nonvenomous), left lower leg, initial encounter[ICD10: S80.862A] Karmen Ash MD, [facility] CPT-4: 38370 01/14/2018 ([id number]) 77168 EST. P ATIENT, LEVEL IV Diagnosis: Type 2 diabetes mellitus with hyperglycemia[ICD10: E11.65] Diagnosis: Chronic obstructive pulmonary disease, unspecified[ICD10: J44.9] Diagnosis: Other fatigue[ICD10: R53.83] Karmen Ash MD, [facility] CPT- 4: 96296 01/13/2018 ([id number]) 93402 EST. P ATIENT, LEVEL IV Diagnosis: Type 2 diabetes mellitus with hyperglycemia[ICD10: E11.65] Diagnosis: Vitamin D deficiency, unspecified[ICD10: E55.9] Diagnosis: Essential (primary) hypertension[ICD10: I10] Diagnosis: Abdominal distension (gaseous)[ICD10: R14.0] Diagnosis: Drug induced constipation[ICD10: K59.03] [facility] CPT-4: 79269 11/19/2017 30985 EST. PATIENT, LEVEL IV Diagnosis: Low back pain[ICD10: M54.5] Diagnosis: Chronic obstructive pulmonary disease, unspecified[ICD10: J44.9] Brunilda Ash MD, [facility] CPT-4: 95280 10/02/2017 ([id number]) 39980 EST. P ATIENT, LEVEL IV Diagnosis: Essential (primary) hypertension[ICD10: I10] Diagnosis: Type 2 diabetes mellitus with hyperglycemia[ICD10: E11.65] Diagnosis: Vitamin D deficiency, unspecified[ICD10: E55.9] Diagnosis: Mixed hyperlipidemia[ICD10: E78.2] Karmen Ash MD, [facility] CPT-4: 02332 07/23/2017 ([id number]) 16049 EST. P ATIENT, LEVEL IV Diagnosis: Essential (primary) hypertension[ICD10: I10] Diagnosis: Type 2 diabetes mellitus with hyperglycemia[ICD10: E11.65] Diagnosis: Chronic obstructive pulmonary disease, unspecified[ICD10: J44.9] Diagnosis: Nicotine dependence, unspecified, uncomplicated[ICD10: F17.200] Diagnosis: Encounter for immunization[ICD10: Z23] Karmen Ash MD, [facility] CPT-4: 89733 04/25/2017 ([id number]) 78696 EST. P ATIENT, LEVEL IV Diagnosis: Type 2 diabetes mellitus with hyperglycemia[ICD10: E11.65] Diagnosis: Essential (primary) hypertension[ICD10: I10] Diagnosis: Anemia, unspecified[ICD10: D64.9] Karmen Ash MD, [facility] CPT- 4: 31759 02/19/2017 ([id number]) 50967 EST. P ATIENT, LEVEL IV Diagnosis: Slow transit constipation[ICD10: K59.01] Diagnosis: Gastro-esophageal reflux disease without esophagitis[ICD10: K21.9] Diagnosis: Essential (primary) hypertension[ICD10: I10] [facility] CPT-4: 39275 01/21/2017 ([id number]) 10092 EST. P ATIENT, LEVEL IV Diagnosis: Type 2 diabetes mellitus with hyperglycemia[ICD10: E11.65] Diagnosis: Vitamin D deficiency, unspecified[ICD10: E55.9] Diagnosis: Essential (primary) hypertension[ICD10: I10] Diagnosis: Chronic obstructive pulmonary disease, unspecified[ICD10: J44.9] Karmen Ash MD, [facility] CPT-4: 61861 12/20/2016 ([id number]) 15829 EST. P ATIENT, LEVEL IV Diagnosis: Type 2 diabetes mellitus with hyperglycemia[ICD10: E11.65] Diagnosis: Essential (primary) hypertension[ICD10: I10] Diagnosis: Mixed hyperlipidemia[ICD10: E78.2] Diagnosis: Vitamin D deficiency, unspecified[ICD10: E55.9] Karmen Ash MD, [facility] CPT-4: 67567 08/23/2016 ([id number]) 47963 EST. P ATIENT, LEVEL IV Diagnosis: Type 2 diabetes mellitus with hyperglycemia[ICD10: E11.65] Diagnosis: Essential (primary) hypertension[ICD10: I10] Diagnosis: Chronic obstructive pulmonary disease, unspecified[ICD10: J44.9] Karmen Ash MD, [facility] CPT-4: 27107 05/22/2016 ([id number]) 10053 EST. P ATIENT, LEVEL III Diagnosis: Dysuria[ICD10: R30.0] Diagnosis: Essential (primary) hypertension[ICD10: I10] Karmen Ash MD, [facility] CPT-4: 21573 02/24/2016 ([id number]) 79945 EST. P ATIENT, LEVEL IV Diagnosis: Gastro-esophageal reflux disease without esophagitis[ICD10: K21.9] Diagnosis: Slow transit constipation[ICD10: K59.01] Diagnosis: Type 2 diabetes mellitus with hyperglycemia[ICD10: E11.65] Karmen Ash MD, [facility] CPT-4: 33476 01/27/2016 ([id number]) 34284 EST. P ATIENT, LEVEL IV Diagnosis: Essential (primary) hypertension[ICD10: I10] Diagnosis: Type 2 diabetes mellitus with hyperglycemia[ICD10: E11.65] Diagnosis: Vitamin D deficiency, unspecified[ICD10: E55.9] Diagnosis: Chronic obstructive pulmonary disease, unspecified[ICD10: J44.9] Diagnosis: Mixed hyperlipidemia[ICD10: E78.2] Diagnosis: Tobacco use[ICD10: Z72.0] Karmen Ash MD, [facility] CPT- 4: 78960 11/25/2015 ([id number]) 29036 EST. P ATIENT, LEVEL IV Diagnosis: Type 2 diabetes mellitus with hyperglycemia[ICD10: E11.65] Diagnosis: Essential (primary) hypertension[ICD10: I10] Diagnosis: Vitamin D deficiency, unspecified[ICD10: E55.9] Karmen Ash MD, [facility] CPT-4: 74162 07/28/2015 ([id number]) 12680 EST. P ATIENT, LEVEL III Diagnosis: Type 2 diabetes mellitus with hyperglycemia[ICD10: E11.65] Diagnosis: Essential (primary) hypertension[ICD10: I10] Violeta Ash MD, [facility] CPT-4: 91181 05/26/2015 ([id number]) 31271 EST. P ATIENT, LEVEL III Diagnosis: DIABETES TYPE II[ICD9: 250.00] Diagnosis: COPD (chronic obstructive pulmonary disease)[ICD9: 496] Diagnosis: ESSENTIAL HYPERTENSION[ICD9: 401.9] Diagnosis: Cough[ICD9: 786.2] Violeta Ash MD, [facility] CPT-4: 44012 05/06/2015 ([id number]) 60172 EST. P ATIENT, LEVEL III Diagnosis: COPD (chronic obstructive pulmonary disease)[ICD9: 496] Diagnosis: DIABETES TYPE II[ICD9: 250.00] Diagnosis: Muscle ache[ICD9: 729.1] Karmen Ash MD, [facility] CPT- 4: 84737 04/25/2015 ([id number]) 96239 EST. P ATIENT, LEVEL III Diagnosis: ACTINIC KERATOSIS[ICD9: 702.0] Diagnosis: COPD (chronic obstructive pulmonary disease)[ICD9: 496] Diagnosis: DIABETES TYPE II[ICD9: 250.00] Diagnosis: ACUTE URI[ICD9: 465.9] Violeta Ash MD, [facility] CPT-4: 18801 04/12/2015 ([id number]) 36458 EST. P ATIENT, LEVEL III Diagnosis: DIABETES TYPE II[ICD9: 250.00] Violeta Ash MD, [facility] CPT-4: 53653 03/24/2015 ([id number]) 95399 EST. P ATIENT, LEVEL IV Diagnosis: DIABETES TYPE II[ICD9: 250.00] Diagnosis: Hypoglycemia[ICD9: 251.2] Diagnosis: Skin texture changes[ICD9: 782.8] [facility] CPT-4: 89065 03/07/2015 ([id number]) 44332 EST. P ATIENT, LEVEL IV Diagnosis: COPD (chronic obstructive pulmonary disease)[ICD9: 496] Diagnosis: Fatigue[ICD9: 780.79] Diagnosis: Insulin dependent diabetes mellitus[ICD9: 250.00] Diagnosis: Unsteady gait[ICD9: 781.2] [facility] CPT-4: 99415 02/17/2015 ([id number]) 30114 EST. P ATIENT, LEVEL IV Diagnosis: BPPV (benign paroxysmal positional vertigo)[ICD9: 386.11] Diagnosis: Impacted cerumen[ICD9: 380.4] Diagnosis: ESSENTIAL HYPERTENSION[ICD9: 401.9] Diagnosis: Insulin dependent diabetes mellitus[ICD9: 250.00] Karmen Ash MD, [facility] CPT-4: 50948 12/23/2014 ([id number]) [facility] LEVEL 4 Diagnosis: Insulin dependent diabetes mellitus[ICD9: 250.00] Diagnosis: BPPV (benign paroxysmal positional vertigo)[ICD9: 386.11] Diagnosis: COPD (chronic obstructive pulmonary disease)[ICD9: 496] Diagnosis: Tobacco abuse[ICD9: 305.1] Diagnosis: Osteoarthritis[ICD9: 715.90] [facility] CPT- 4: 87268 12/09/2014 Plan of Care Planned Activity Notes C odes Status Date Patient Education: Patient Medication Summary Completed 03/04/2019 Visit Plan: COPD - chronic problem for this patient. We have reviewed chronic treatment strategy, symptom control, and plans for acute exacerbations. 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 DM -rx for CGM -patient is due for labs Low testosterone - check level 03/03/2019 Appointment: Karmen Espinal WPtel: [address] [place], [place] [phone] (30 min) [facility] 03/03/2019 Patient Education: Patient Medication Summary Completed 03/03/2019 Patient Education: Cholesterol Management Completed 03/03/2019 Patient Education: Diabetes Completed 03/03/2019 Care Plan: Comp Metabolic Pending 03/03/2019 Care Plan: Cbc With Differential Pending 03/03/2019 Care Plan: %Hba1C KIKI [place] : 18174-7 Pending 03/03/2019 Care Plan: Tsh Pending 03/03/2019 Care Plan: Lipid Pending 03/03/2019 Care Plan: Testosterone Pending 03/03/2019 Appointment: Injection 02/16/2019 Patient Education: Patient [...] directed 12/02/2018 [facility] [phone] [phone] ([facility] min[facility] Complex 12/02/2018 Patient Education: Patient Medication Summary Completed 12/02/2018 Patient Education: Diabetes Completed 12/02/2018 Appointment: Injection 11/18/2018 Patient Education: Patient Medication Summary Completed 11/18/2018 Appointment: Injection 11/04/2018 Patient Education: Patient Medication Summary Completed 11/04/2018 [facility]ment[facility] [phone] [phone] (30 min) Complex 10/21/2018 Visit Plan: [...] walker 10/17/2018 Appointment: [facility] [phone] [phone] (30 min) Complex 10/17/2018 Patient Education: [...] medications. 09/02/2018 Appointment: [facility] [phone] [phone] (15 min) Moderate 09/02/2018 Patient [...] surrogate. 06/30/2018 Appointment: [facility] [phone] [phone] [facility] - Annual Wellness Visit 06/30/2018 Patient [...] in pain. 06/06/2018 Appointment: Karmen Espinal WPtel: [address] [place], [place] [phone] (15 min) Moderate 06/06/2018 Patient Education: Patient [...] 2 months 04/04/2018 Appointment: Karmen Espinal WPtel: [phone] [phone] (15 min) Moderate 04/04/2018 Patient Education: Patient Medication Summary Completed 04/04/2018 Care Plan: Cbc With Differential Pending 04/04/2018 Care Plan: Testosterone repeat in 2 months Pending 04/04/2018 Appointment: Karmen Espinal WPtel: [phone] [phone] [place] (15 min) Moderate 03/25/2018 Visit Plan: Low back pain -history of kidney stone-UA negative today -increase fluids and call if pain does not resolve or if any worse. 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 01/30/2018 Appointment: Karmen Espinaltel: [address] [place], [place] [phone] (15 min) Moderate 01/30/2018 Patient Education: Patient Medication Summary Completed 01/30/2018 Appointment: Karmen Espinaltel: [facility] [address] (15 min) Moderate 01/28/2018 Appointment: Injection 01/17/2018 Patient Education: Patient Medication Summary Completed 01/17/2018 Visit Plan: Cellulitis - start oral antibiotics as directed, return to clinic as previously directed, call for acute change in symptoms, worsening redness, warmth, discharge. 01/14/2018 Appointment: Karmen Espinal WPtel: [facility] [address] (10 min) Simple 01/14/2018 Patient Education: Patient [...] less controlled. 01/13/2018 Appointment: Karmen Espinal WPtel: [address] [place] [address] (15 min) Moderate 01/13/2018 Patient Education: Patient Medication Summary Completed 01/13/2018 Referral: Hugo Villatoro HPtel:[phone] [place] [address] Patient's informed. Referral info ned monroy. Completed [...] change in blood pressure readings at home. Htqbazdv-pshixc-snghu to see Dr Villatoro Constipation-start linzess daily 11/19/2017 Appointment: [facility] [phone] [phone] (30 min) Complex 11/19/2017 Patient Education: Patient Medication Summary Completed 11/19/2017 Care Plan: Referral Order bloating, nausea SNOMED-CT : 298372938 Pending 11/19/2017 Visit Plan: Low back pain- [...] changes. 10/02/2017 Appointment: Brun[facility] Marav[facility]el[facility] [phone] [phone] (15 min) Moderate 10/02/2017 Patient Education: [...] less controlled. 07/23/2017 Appointment: Karmen Espinal WPtel: [address] [place], [place] [phone] (30 min) [facility] 07/23/2017 Patient Education: Patient Medication Summary Completed 07/23/2017 Patient Education: Smoking and Tobacco Addiction Completed 07/23/2017 Patient Education: Hypertension Completed 07/23/2017 Visit Plan: Hypertension - well con eugenie - continue with current medications, continue with [...] pack/year history 04/25/2017 Appointment: [facility] [phone] [phone] (30 min) Complex 04/25/2017 Patient [...] readings are starting to become less controlled. Vwuuog-xymvsni-cdymz labs 02/19/2017 Appointment: [facility]inal [facility] [phone] [phone] (30 min) Complex 02/19/2017 Patient Education: [...] month 01/21/2017 Appointment: [facility]inal [facility]el[facility] [phone] [phone] (30 min) Complex 01/21/2017 Patient Education: Patient Medication Summary Completed 01/21/2017 Patient Education: Smoking and Tobacco Addiction Completed 01/21/2017 Patient Education: Hypertension Completed 01/21/2017 Care Plan: Referral Order SNOMED-CT : 056283606 Pending 01/21/2017 Visit Plan: Diabetes Mellitus - [...] acute changes. 12/20/2016 Appointment: Karmen Espinal WPtel: [phone] (30 min) Complex 12/20/2016 Patient Education: Patient Medication Summary Completed 12/20/2016 Patient Education: Smoking and Tobacco Addiction Completed 12/20/2016 Patient Education: Hypertension Completed 12/20/2016 Appointment: [facility]inal [facility]Ptel[facility] [phone] [phone] (30 min) Complex 09/06/2016 Visit Plan: Diabetes [...] level 08/23/2016 Appointment: [facility]inal [facility]Ptel[facility] [phone] [phone] (30 min) Complex 08/23/2016 Patient Education: Patient Medication Summary Completed 08/23/2016 Patient Education: Smoking and Tobacco Addiction Completed 08/23/2016 Patient Education: Patient Medication Summary Completed 05/23/2016 Visit Plan: Diabetes Mellitus - con eugenie [...] acute changes. 05/22/2016 Appointment: [facility] Espinal [facility]Ptel[facility] [phone] [phone] (30 min) Complex 05/22/2016 Patient Education: Patient Medication Summary Completed 05/22/2016 Patient Education: Smoking and Tobacco Addiction Completed 05/22/2016 Care Plan: Cbc With Differential Ordered 05/22/2016 Care Plan: %Hba1C LOIN C : 96418-0 Ordered 05/22/2016 Care Plan: Tsh Ordered 05/22/2016 Care Plan: Comp Metabolic Ordered 05/22/2016 Visit Plan: Hypertension - well izzy traore [...] Karmen Espinal WPtel: [phone] (30 min) Complex 02/24/2016 Patient Education: Patient Medication Summary Completed 02/24/2016 Patient Education: Smoking and Tobacco Addiction Completed 02/24/2016 Patient Education: Hypertension Completed 02/24/2016 Visit Plan: Diabetes Mellitus - izzy traore [...] regimen. 01/27/2016 Appointment: [facility]inal [facility]el[facility] [phone] [phone] (30 min) Complex 01/27/2016 Patient [...] use medication to assist cessation. 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 Rofpcoyj-yzgvpubn-WEVY SIMVASTATIN X 2 WEEKS AND CALL WITH [...] Care Plan: COMPLETE CBC AUTOMATED LOINC : 59507-8 Ordered 03/24/2015 Visit Plan: Diabetes Mellitus - [...] for removal. 03/07/2015 Appointment: Violeta Ash WPtel: [address] [place], [place] [phone] (15 min) Moderate 03/07/2015 Patient Education: Patient [...] Care Plan: COMPLETE CBC AUTOMATED LOINC : 72347-6 Ordered 12/23/2014 Visit Plan: BPPV - Benign [...] next appt 12/09/2014 Appointment: Karmen Espinal WPtel: [address] [place], [place] [phone] [place] ([place]) New Patient 12/09/2014 Patient Education: Patient Medication Summary Completed 12/09/2014 Patient Education: .Amazing charts Parox ysmal positional vertigo Completed 12/09/2014 Patient Education: Smoking and Tobacco Addiction Completed 12/09/2014 Referral: Hugo Villatoro HPtel:[phone] [facility] [place] Referral Appointment Requested Referral: Luis [...] readings are starting to become less controlled. Chzgwy-jjlmhbx-fkxcb labs . Cellulitis - start oral antibiotics [...] change in blood pressure readings at home. Rohpkaup-ecqvxc-lxwez to see Dr Villatoro Constipation-start linzess daily [...] POTENTIAL SIDE EFFECTS AND WORSENING OF SYMPTOMS. 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
--- OUTSIDE RECORDS SUMMARY | 2020-03-29 07:48 | XMS REPORT | CCD ---
Author Author Dick Espinal Organization Violeta Ash MD, [facility] Address [address] [place] [address] Phone Care Team Providers Care Couture Dressmaker Name Role Phone PP Unavailable CCM Unavailable Summary Purpose Interface Exchange Insurance Providers Payer name Policy type / Coverage type Covered green party ID Effective Begin Date Effective End Date WPS Medicare Part B Medicare Part B [id number] Unknown Unknown [employer] Medicar e Part B [id number] Unknown Unkn own Family history Father Diagnosis Age At Onset Cancer Unknown Mother Diagnosis Age At Onset Cancer Unknown Social History Social History Element Codes Description Effective Dates Number of cigarettes/day Unknown 20 (One Pack) 03/03/2019 Marital status Unknown M arried 12/09/2014 Employment Unknown Retir ed 12/09/[address]: 58291828 Currently smokes tobacco 12/09/2014 Number of years using tobacco Unknown > 50 12/09/[address]: 420773510 Never drinks alcohol 12/09/2014 Allergies, Adverse Reactions, Alerts Substance Reaction Codes Entered Date Inactivated Date Status * OTHER REACTION - S EE ANSWER BOX ceftin- c-dif Unknown No Inactive Date Active * NO KNOWN FOOD TAYLOR RGIES Unknown 12/09/2014 No Inactive Date Active Past Medical History Illness Codes Condition Status Onset Date Resolved Date Abnormal weight loss ICD-9: 783.21 ICD-10: R63.4 Active 02/20/2018 Unknown Chronic obstructive pulmonary disease, unspecified ICD-9: 496 ICD-10: J44.9 Active 05/21/2016 Unknown Mixed hyperlipidemia ICD-9: 272.2 ICD-10: E78.2 Active 08/22/2016 Unknown Testicular dysfuncti on, unspecified ICD-9: 257.9 ICD-10: E29.9 Active 01/17/2018 Unknown Type 2 diabetes kdai itus with hyperglycemia ICD-9: 250.02 ICD-10: E11.65 [...] ICD-10: R26.81 Active 10/17/2018 Unknown Encounter for [facility] adult medical examination with abnormal [...] Condition Codes Effectiv e Dates Condition Status Abnormal weight loss ICD-9: 783.21 ICD-10: R63.4 02/20/2018 Active Chronic obstructive pulmonary disease, unspecified ICD-9: 496 ICD-10: J44.9 05/21/2016 Active Mixed hyperlipidemia ICD-9: 272.2 ICD-10: E78.2 08/22/2016 Active Testicular dysfuncti on, unspecified ICD-9: 257.9 ICD-10: E29.9 01/17/2018 Active Type 2 diabetes kadi itus with [...] Date Stop Date Sta tus Fill Instructions Yovana Perkins U-30 0 Insulin 300 unit/mL (1.5 mL) subcutaneous pen RxNorm: 3270261 30 Unit(s) SQ QHS 03/03/2019 No Stop Date Active Xanax 0.5 mg tablet RxNorm: 706344 Tablet(s) as needed TAKE ONE TABLET BY M OUTH THREE TIMES A DAY 02/19/2019 04/19/2019 Active Xanax 0.5 mg tablet RxNorm: 797291 Tablet(s) TAKE ONE TABLET BY MOUTH THREE TIMES A DAY 02/19/2019 02/18/2019 Inactive hydrocodone 5 mg-linh taminophen 325 mg tablet RxNorm: 593162 1 Tablet(s) PO Q6-8H as needed 02/16/2019 03/12/2019 Active testosterone cypiona te 200 mg/mL intramuscular oil RxNorm: 4200674 Milliliter(s) IM 02/16/2019 02/16/2019 In active Protonix 40 mg table t,delayed release RxNorm: 291608 TAKE 1 TABLET BY MOUT H DAILY 02/02/2019 01/27/2020 Ac tive - Ref: [id number] simvastatin 40 mg ta blet RxNorm: 719153 TAKE 1 TABLET BY MOUT H DAILY AT BEDTIME 02/02/2019 01/27/2020 Ac tive - Ref: [id number] testosterone cypiona te 200 mg/mL intramuscular oil RxNorm: 8774794 Milliliter(s) IM 01/30/2019 01/30/2019 In active testosterone cypiona te 200 mg/mL intramuscular oil RxNorm: 6311523 1/2 Milliliter(s) IM [id number] 01/16/2019 05/15/2019 Active testosterone cypiona te 200 mg/mL intramuscular oil RxNorm: 4496839 Milliliter(s) IM 01/16/2019 01/16/2019 In active hydrocodone 5 mg-linh taminophen 325 mg tablet RxNorm: 557345 1 Tablet(s) PO Q6-8H as needed 01/14/2019 02/07/2019 Inactive testosterone cypiona te 200 mg/mL intramuscular oil RxNorm: 8160692 Milliliter(s) IM 01/01/2019 01/01/2019 In active Xanax 0.5 mg tablet RxNorm: 048324 1 Tablet(s) PO TID 12/18/2018 02/14/2019 Inactive testosterone cypiona te 200 mg/mL intramuscular oil RxNorm: 1052924 Milliliter(s) IM 12/17/2018 12/17/2018 In active hydrocodone 5 mg-linh taminophen 325 mg tablet RxNorm: 166887 1 Tablet(s) PO Q6-8H as needed 12/15/2018 01/08/2019 Inactive testosterone cypiona te 200 mg/mL intramuscular oil RxNorm: 7555693 Milliliter(s) IM 12/02/2018 12/02/2018 In active testosterone cypiona te 200 mg/mL intramuscular oil RxNorm: 3367417 Milliliter(s) IM 11/18/2018 11/18/2018 In active hydrocodone 5 mg-linh taminophen 325 mg tablet RxNorm: 666693 1 Tablet(s) PO Q6-8H as needed 11/13/2018 12/07/2018 Inactive testosterone cypiona te 200 mg/mL intramuscular oil RxNorm: 6943241 1/2 Milliliter(s) IM Q7ocsun 11/04/2018 01/15/2019 Inactive testosterone cypiona te 200 mg/mL intramuscular oil RxNorm: 3115034 Milliliter(s) IM 11/04/2018 11/04/2018 In active nicotine 21 mg/24 hr daily transdermal patch RxNorm: 150974 1 TD daily 10/31/2018 10/30/2018 In active nicotine 21 mg/24 hr daily transdermal patch RxNorm: 348811 1 TD daily 10/31/2018 11/29/2018 In active meclizine 25 mg tablet RxNorm: 765965 1 Tablet(s) PO Q6 PRN TAKE ONE TABLET BY MOUTH EVERY 6 HOURS NEEDED 10/17/2018 01/14/2019 Inactive hydrocodone 5 mg-linh taminophen 325 mg tablet RxNorm: 785575 1 Tablet(s) PO Q6-8H as needed 10/17/2018 11/10/2018 Inactive metformin 500 mg tablet RxNorm: 531512 Tablet(s) TAKE 1 TABLET BY MOUTH DAILY 10/15/2018 10/09/2019 Ac tive lisinopril 10 mg tablet RxNorm: 896579 TAKE 1 TABLET BY MOUTH TWO TIMES DAILY 10/15/2018 10/09/2019 Ac tive - First Attempt Ref: [id number] testosterone cypiona te 200 mg/mL intramuscular oil RxNorm: 9759732 Milliliter(s) IM 10/14/2018 10/14/2018 In active Xanax 0.5 mg tablet RxNorm: 934908 1 Tablet(s) PO TID 10/03/2018 11/30/2018 Inactive testosterone cypiona te 200 mg/mL intramuscular oil RxNorm: 2066042 1/2 Milliliter(s) IM weekly 10/03/2018 11/03/2018 Inactive testosterone cypiona te 200 mg/mL intramuscular oil RxNorm: 3759536 Milliliter(s) IM 10/03/2018 10/03/2018 In active testosterone cypiona te 200 mg/mL intramuscular oil RxNorm: 2979449 Milliliter(s) IM 09/23/2018 09/23/2018 In active hydrocodone 5 mg-linh taminophen 325 mg tablet RxNorm: 662382 1 Tablet(s) PO Q6-8H as needed 09/22/2018 10/16/2018 Inactive testosterone cypiona te 200 mg/mL intramuscular oil RxNorm: 9711120 1/2 Milliliter(s) IM 09/02/2018 09/02/2018 Inactive testosterone enantha te 200 mg/mL intramuscular oil RxNorm: 548540 Milliliter(s) IM 08/21/2018 08/21/2018 In active hydrocodone 5 mg-linh taminophen 325 mg tablet RxNorm: 924156 1 Tablet(s) PO Q6-8H as needed 08/21/2018 09/14/2018 Inactive testosterone cypiona te 200 mg/mL intramuscular oil RxNorm: 9612082 Milliliter(s) IM 08/08/2018 08/08/2018 In active testosterone cypiona te 200 mg/mL intramuscular oil RxNorm: 7251146 1/2 Milliliter(s) IM 07/28/2018 07/28/2018 Inactive hydrocodone 5 mg-linh taminophen 325 mg tablet RxNorm: 545416 1 Tablet(s) PO Q6-8H as needed 07/21/2018 08/14/2018 Inactive testosterone cypiona te 200 mg/mL intramuscular oil RxNorm: 460793 Milliliter(s) IM 07/16/2018 07/16/2018 In active testosterone cypiona te 200 mg/mL intramuscular oil RxNorm: 724013 Milliliter(s) IM 07/02/2018 07/02/2018 In active Xanax 0.5 mg tablet RxNorm: 152358 1 Tablet(s) PO TID 06/27/2018 08/24/2018 Inactive testosterone cypiona te 200 mg/mL intramuscular oil RxNorm: 854414 Milliliter(s) IM 06/24/2018 06/24/2018 In active hydrocodone 5 mg-linh taminophen 325 mg tablet RxNorm: 854776 1 Tablet(s) PO Q6-8H as needed 06/23/2018 07/17/2018 Inactive testosterone cypiona te 200 mg/mL intramuscular oil RxNorm: 549257 Milliliter(s) IM 06/13/2018 06/13/2018 In active testosterone cypiona te 200 mg/mL intramuscular oil RxNorm: 942804 Milliliter(s) IM 06/05/2018 06/05/2018 In active testosterone cypiona te 200 mg/mL intramuscular oil RxNorm: 9471539 1/2 Milliliter(s) IM weekly 05/30/2018 09/26/2018 Inactive testosterone cypiona te 200 mg/mL intramuscular oil RxNorm: 529442 Milliliter(s) IM 05/30/2018 05/30/2018 In active testosterone cypiona te 200 mg/mL intramuscular oil RxNorm: 606825 Milliliter(s) IM 05/22/2018 05/22/2018 In active hydrocodone 5 mg-linh taminophen 325 mg tablet RxNorm: 456260 1 Tablet(s) PO Q6-8H as needed 05/20/2018 06/13/2018 Inactive testosterone cypiona te 200 mg/mL intramuscular oil RxNorm: 913964 1/2 Milliliter(s) IM 05/12/2018 05/12/2018 Inactive testosterone cypiona te 200 mg/mL intramuscular oil RxNorm: 670699 Milliliter(s) IM 05/02/2018 05/02/2018 In active testosterone cypiona te 200 mg/mL intramuscular oil RxNorm: 608234 1/2 Milliliter(s) IM weekly 04/24/2018 05/29/2018 Inactive testosterone cypiona te 200 mg/mL intramuscular oil RxNorm: 372674 0.5 Milliliter(s) IM 04/24/2018 04/24/2018 Inactive hydrocodone 5 mg-linh taminophen 325 mg tablet RxNorm: 643634 1 Tablet(s) PO Q6-8H as needed 04/22/2018 05/16/2018 Inactive testosterone cypiona te 200 mg/mL intramuscular oil RxNorm: 782309 1/2 Milliliter(s) IM 04/17/2018 04/17/2018 Inactive testosterone cypiona te 200 mg/mL intramuscular oil RxNorm: 608141 1/2 Milliliter(s) IM weekly 04/16/2018 04/23/2018 Inactive Jardiance 10 mg tablet RxNorm: 3677933 1 Tablet(s) PO daily 04/04/2018 12/29/2018 Inactive testosterone cypiona te 200 mg/mL intramuscular oil RxNorm: 859623 1 Milliliter(s) IM monthly 04/04/2018 04/15/2018 Inactive Protonix 40 mg table t,delayed release RxNorm: 660781 1 Tablet(s) PO daily TAKE 1 TABLET BY MOUTH DAILY 04/04/2018 02/01/2019 Inactive - Ref: [id number] hydrocodone 5 mg-linh taminophen 325 mg tablet RxNorm: 045124 1 Tablet(s) PO Q6-8H as needed 03/19/2018 04/12/2018 Inactive Flomax 0.4 mg capsule RxNorm: 406259 1 Capsule(s) PO daily 03/10/2018 03/04/2019 Active Urecholine 25 mg tablet RxNorm: 668261 1 Tablet(s) PO BID 03/10/2018 07/07/2018 Inactive ketorolac 60 mg/2 mL intramuscular solution RxNorm: 9524026 Milliliter(s) IM 03/07/2018 03/07/2018 In active metformin 500 mg tablet RxNorm: 415741 Tablet(s) TAKE 1 TABLET BY MOUTH DAILY 02/20/2018 02/13/2019 In active 1 q am and 1/2 tab q pm hydrocodone 5 mg-linh taminophen 325 mg tablet RxNorm: 600590 1 Tablet(s) PO Q6-8H as needed 02/20/2018 03/16/2018 Inactive Kenalog 40 mg/mL bartolome pension for injection RxNorm: 6693530 1.5 Milliliter(s) In j 01/30/2018 01/30/2018 In active hydrocodone 5 mg-linh taminophen 325 mg tablet RxNorm: 309488 1 Tablet(s) PO Q6-8H as needed 01/23/2018 02/16/2018 Inactive Urecholine 25 mg tablet RxNorm: 541630 1 Tablet(s) PO BID 01/22/2018 03/09/2018 Inactive Flomax 0.4 mg capsule RxNorm: 114179 1 Capsule(s) PO daily 01/22/2018 03/09/2018 Inactive Flomax 0.4 mg capsule RxNorm: 746030 1 Capsule(s) PO daily 01/22/2018 01/21/2018 Inactive Urecholine 25 mg tablet RxNorm: 581334 1 Tablet(s) PO BID 01/22/2018 01/21/2018 Inactive testosterone cypiona te 200 mg/mL intramuscular oil RxNorm: 314972 Milliliter(s) IM 01/17/2018 01/17/2018 In active testosterone cypiona te 200 mg/mL intramuscular oil RxNorm: 434305 1 Milliliter(s) IM monthly 01/17/2018 04/03/2018 Inactive doxycycline hyclate 100 mg tablet RxNorm: 082279 1 Tablet(s) PO BID 01/14/2018 01/23/2018 Inactive lisinopril 10 mg tablet RxNorm: 029205 TAKE 1 TABLET BY MOUTH TWO TIMES DAILY 01/14/2018 10/14/2018 In active - First Attempt Ref: [id number] nystatin 100,000 uni t/mL oral suspension RxNorm: 333946 4 Milliliter(s) PO QI D Swish and swallow 01/08/2018 01/07/2018 Inactive nystatin 100,000 uni t/mL oral suspension RxNorm: 796196 4 Milliliter(s) PO QI D Swish and swallow 01/08/2018 01/12/2018 Inactive Xanax 0.5 mg tablet RxNorm: 297832 1 Tablet(s) PO TID 01/08/2018 12/23/2018 Inactive simvastatin 40 mg ta blet RxNorm: 372328 TAKE 1 TABLET BY MOUT H DAILY AT BEDTIME 12/30/2017 12/24/2018 In active - First Attempt Ref: [id number] metformin 500 mg tablet RxNorm: 716261 TAKE 1 TABLET BY MOUTH DAILY 12/30/2017 02/19/2018 Inactive - First Attempt Ref: [id number] hydrocodone 5 mg-linh taminophen 325 mg tablet RxNorm: 189744 1 Tablet(s) PO Q6-8H as needed 12/25/2017 01/18/2018 Inactive Protonix 40 mg table t,delayed release RxNorm: 244204 Tablet(s) TAKE 1 TABL ET BY MOUTH DAILY 11/20/2017 04/03/2018 Inactive - Ref: [id number] Linzess 72 mcg capsule RxNorm: 0114061 1 Capsule(s) PO daily 11/19/2017 No Stop Date Active hydrocodone 5 mg-linh taminophen 325 mg tablet RxNorm: 825846 1 Tablet(s) PO Q6-8H as needed 11/19/2017 12/13/2017 Inactive hydrocodone 5 mg-linh taminophen 325 mg tablet RxNorm: 952814 1 Tablet(s) PO Q6-8H as needed 10/28/2017 11/18/2017 Inactive Xanax 0.5 mg tablet RxNorm: 211883 1 Tablet(s) PO TID 10/25/2017 12/22/2017 Inactive Xanax 0.5 mg tablet RxNorm: 329458 TAKE ONE TABLET BY MOUTH THREE TIMES A D AY 10/24/2017 12/01/2018 In active hydrocodone 5 mg-linh taminophen 325 mg tablet RxNorm: 212994 1 Tablet(s) PO Q6-8H as needed 09/30/2017 10/24/2017 Inactive Protonix 40 mg table t,delayed release RxNorm: 607266 TAKE 1 TABLET BY MOUT H DAILY 09/16/2017 11/19/2017 In active - Ref: [id number] Yovana Perkins 300 unit/mL (1.5 mL) subcutaneous insulin pen RxNorm: 5157381 35 Unit(s) SQ QHS 08/30/2017 03/02/2019 Inactive dosage increase hydrocodone 5 mg-linh taminophen 325 mg tablet RxNorm: 026830 1 Tablet(s) PO Q6-8H as needed 08/28/2017 09/29/2017 Inactive hydrocodone 5 mg-linh taminophen 325 mg tablet RxNorm: 983444 1 Tablet(s) PO Q6-8H as needed 07/23/2017 08/24/2017 Inactive lisinopril 10 mg tablet RxNorm: 094634 1 Tablet(s) PO BID Take 1 tablet by mout h daily 07/23/2017 01/13/2018 Inactive hydrocodone 5 mg-linh taminophen 325 mg tablet RxNorm: 622410 1 Tablet(s) PO Q6-8H as needed 06/27/2017 07/22/2017 Inactive Xanax 0.5 mg tablet RxNorm: 627234 1 Tablet(s) PO TID 06/18/2017 10/25/2017 Inactive hydrocodone 5 mg-linh taminophen 325 mg tablet RxNorm: 202591 1 Tablet(s) PO Q6-8H as needed 05/27/2017 06/26/2017 Inactive Levaquin 500 mg tablet RxNorm: 400194 1 Tablet(s) PO daily 05/24/2017 05/23/2017 Inactive Levaquin 500 mg tablet RxNorm: 694673 1 Tablet(s) PO daily 05/24/2017 05/30/2017 Inactive Protonix 40 mg table t,delayed release RxNorm: 849846 Take 1 tablet by mout h daily 04/29/2017 09/15/2017 In active - Ref: [id number] hydrocodone 5 mg-linh taminophen 325 mg tablet RxNorm: 341490 1 Tablet(s) PO Q6-8H as needed 04/25/2017 05/26/2017 Inactive metformin 500 mg tablet RxNorm: 233968 Take 1 tablet by mouth daily 04/08/2017 12/29/2017 Inactive - First Attempt Ref: [id number] hydrocodone 5 mg-linh taminophen 325 mg tablet RxNorm: 094303 1 Tablet(s) PO Q6-8H as needed 03/27/2017 04/24/2017 Inactive hydrocodone 5 mg-linh taminophen 325 mg tablet RxNorm: 161720 1 Tablet(s) PO Q6-8H as needed 02/25/2017 03/26/2017 Inactive Protonix 40 mg table t,delayed release RxNorm: 082656 Tablet(s) Take 1 tabl et by mouth BID 02/25/2017 04/28/2017 Inactive Protonix 40 mg table t,delayed release RxNorm: 736239 Tablet(s) Take 1 tabl et by mouth BID 02/19/2017 02/18/2017 Inactive Protonix 40 mg table t,delayed release RxNorm: 159588 Tablet(s) Take 1 tabl et by mouth BID 02/19/2017 02/24/2017 Inactive lisinopril 10 mg tablet RxNorm: 515500 Take 1 tablet by mouth daily 01/29/2017 07/22/2017 Inactive - First Attempt Ref: [id number] hydrocodone 5 mg-linh taminophen 325 mg tablet RxNorm: 621013 1 Tablet(s) PO Q6-8H as needed 01/25/2017 02/24/2017 Inactive simvastatin 40 mg ta blet RxNorm: 068040 Tablet(s) Take 1 tabl et by mouth daily at bedtime 01/03/2017 12/28/2017 Inactive lisinopril 10 mg tablet RxNorm: 656461 Tablet(s) Take 1 tablet by mouth daily 01/03/2017 01/28/2017 In active Protonix 40 mg table t,delayed release RxNorm: 734396 Tablet(s) Take 1 tabl et by mouth daily 12/28/2016 02/18/2017 Inactive hydrocodone 5 mg-linh taminophen 325 mg tablet RxNorm: 669747 1 Tablet(s) PO Q6-8H as needed 12/26/2016 01/24/2017 Inactive Xanax 0.5 mg tablet RxNorm: 505393 1 Tablet(s) PO TID 12/12/2016 03/11/2017 Inactive simvastatin 40 mg ta blet RxNorm: 843644 Tablet(s) Take 1 tabl et by mouth daily at bedtime 11/30/2016 01/02/2017 Inactive simvastatin 40 mg ta blet RxNorm: 450467 Take 1 tablet by mout h daily at bedtime 11/29/2016 11/29/2016 In active - First Attempt Ref: [id number] Protonix 40 mg table t,delayed release RxNorm: 798609 Take 1 tablet by mout h daily 11/27/2016 12/27/2016 In active - First Attempt Ref: [id number] hydrocodone 5 mg-linh taminophen 325 mg tablet RxNorm: 556840 1 Tablet(s) PO Q6-8H as needed 11/26/2016 12/25/2016 Inactive hydrocodone 5 mg-linh taminophen 325 mg tablet RxNorm: 955722 1 Tablet(s) PO Q8 as needed 10/24/2016 11/25/2016 Inactive Xanax 0.5 mg tablet RxNorm: 844803 1 Tablet(s) PO TID 10/09/2016 12/25/2016 Inactive hydrocodone 5 mg-linh taminophen 325 mg tablet RxNorm: 505517 1 Tablet(s) PO Q8 as needed 09/27/2016 10/23/2016 Inactive lisinopril 10 mg tablet RxNorm: 738784 Take 1 tablet by mouth daily 09/25/2016 01/02/2017 Inactive - First Attempt Ref: [id number] Vitamin D2 50,000 un it capsule RxNorm: 802624 1 Capsule(s) PO QW 09/06/2016 12/01/2018 Inactive hydrocodone 5 mg-linh taminophen 325 mg tablet RxNorm: 336461 1 Tablet(s) PO Q8 as needed 08/28/2016 09/26/2016 Inactive Toujeo SoloStar 300 unit/mL (1.5 mL) subcutaneous insulin pen RxNorm: 0178846 25 Unit(s) SQ QHS 08/23/2016 08/29/2017 Inactive dosage increase hydrocodone 5 mg-linh taminophen 325 mg tablet RxNorm: 721841 1 Tablet(s) PO Q8 as needed 07/26/2016 08/27/2016 Inactive Protonix 40 mg table t,delayed release RxNorm: 997128 Take 1 tablet by mout h daily 07/24/2016 11/26/2016 In active - First Attempt Ref: [id number] hydrocodone 5 mg-linh taminophen 325 mg tablet RxNorm: 000722 1 Tablet(s) PO Q8 as needed 06/19/2016 07/21/2016 Inactive Toujeo SoloStar 300 unit/mL (1.5 mL) subcutaneous insulin pen RxNorm: 8074719 32 Unit(s) SQ QHS 05/30/2016 08/22/2016 Inactive dosage increase hydrocodone 5 mg-linh taminophen 325 mg tablet RxNorm: 584992 1 Tablet(s) PO Q8 as needed 05/22/2016 06/18/2016 Inactive hydrocodone 5 mg-linh taminophen 325 mg tablet RxNorm: 853938 1 Tablet(s) PO Q8 as needed 04/18/2016 05/17/2016 Inactive Protonix 40 mg table t,delayed release RxNorm: 146949 Take 1 tablet by mout h daily 04/05/2016 07/03/2016 In active - Ref: [id number] metformin 500 mg tablet RxNorm: 866640 Take 1 tablet by mouth daily 04/04/2016 07/02/2016 Inactive - Ref: [id number] Xanax 0.5 mg tablet RxNorm: 259971 1 Tablet(s) PO TID 03/30/2016 09/25/2016 Inactive Xanax 0.5 mg tablet RxNorm: 318741 1 Tablet(s) PO TID 03/23/2016 12/25/2016 Inactive hydrocodone 5 mg-linh taminophen 325 mg tablet RxNorm: 992504 1 Tablet(s) PO Q8 as needed 03/06/2016 04/04/2016 Inactive Cipro 500 mg tablet RxNorm: 829421 1 Tablet(s) PO BID 02/24/2016 03/04/2016 Inactive Miralax 17 gram oral powder packet RxNorm: 900733 1 packet PO every oth er day 01/27/2016 No Stop Date Active hydrocodone 5 mg-linh taminophen 325 mg tablet RxNorm: 105766 1 Tablet(s) PO Q8 as needed 01/27/2016 02/25/2016 Inactive lisinopril 10 mg tablet RxNorm: 072570 1 Tablet(s) PO daily 01/12/2016 09/24/2016 Inactive simvastatin 40 mg ta blet RxNorm: 760658 1 Tablet(s) PO QHS 01/12/2016 11/28/2016 Inactive simvastatin 40 mg ta blet RxNorm: 142771 1 Tablet(s) PO QHS 01/11/2016 01/11/2016 Inactive lisinopril 10 mg tablet RxNorm: 107855 1 Tablet(s) PO daily 01/06/2016 01/11/2016 Inactive simvastatin 40 mg ta blet RxNorm: 753022 1 Tablet(s) PO daily 12/28/2015 01/10/2016 Inactive hydrocodone 5 mg-linh taminophen 325 mg tablet RxNorm: 510411 1 Tablet(s) PO Q8 as needed 12/27/2015 01/26/2016 Inactive Xanax 0.5 mg tablet RxNorm: 549988 1 Tablet(s) PO TID 11/30/2015 03/29/2016 Inactive Toujeo SoloStar 300 unit/mL (1.5 mL) subcutaneous insulin pen RxNorm: 0340674 30 Unit(s) SQ QHS 11/25/2015 05/29/2016 Inactive dosage increase meclizine 25 mg tablet RxNorm: 231840 1 Tablet(s) PO Q6 PRN TAKE ONE TABLET BY MOUTH EVERY 6 HOURS NEEDED 11/25/2015 02/22/2016 Inactive omeprazole 20 mg cap jacquelyn,delayed release RxNorm: 811822 1 Capsule(s) PO daily 10/06/2015 01/26/2016 In active Toujeo SoloStar 300 unit/mL (1.5 mL) subcutaneous insulin pen RxNorm: 6665936 35 Unit(s) SQ QHS 08/02/2015 11/24/2015 Inactive dosage increase Vitamin D2 50,000 un it capsule RxNorm: 763119 1 Capsule(s) PO QW 08/02/2015 09/05/2016 Inactive hydrocodone 5 mg-linh taminophen 325 mg tablet RxNorm: 363929 1 Tablet(s) PO Q8 as needed 07/11/2015 12/26/2015 Inactive Xanax 0.5 mg tablet RxNorm: 017260 1 Tablet(s) PO TID 06/30/2015 06/29/2015 Inactive Xanax 0.5 mg tablet RxNorm: 449222 1 Tablet(s) PO TID 06/30/2015 12/25/2015 Inactive hydrocodone 5 mg-linh taminophen 325 mg tablet RxNorm: 114174 1 Tablet(s) PO Q8 as needed 05/06/2015 07/10/2015 Inactive Symbicort 160 mcg-4. 5 mcg/actuation HFA aerosol inhaler RxNorm: 1037649 INH 04/25/2015 No Stop Date Active Levemir FlexTouch 10 0 unit/mL (3 mL) subcutaneous insulin pen RxNorm: 910647 30 Unit(s) SQ QHS 04/25/2015 11/24/2015 Inactive prednisone 20 mg tablet RxNorm: 270317 1 Tablet(s) PO BID 04/25/2015 04/29/2015 Inactive metformin 500 mg tablet RxNorm: 003450 1 Tablet(s) PO daily 04/25/2015 04/03/2016 Inactive amoxicillin 500 mg c apsule RxNorm: 745528 1 Capsule(s) PO TID 04/14/2015 04/13/2015 Inactive amoxicillin 500 mg c apsule RxNorm: 238908 1 Capsule(s) PO TID a nd recommend probiotic tid (otc) 04/14/2015 04/20/2015 Inactive Kenalog 40 mg/mL bartolome pension for injection RxNorm: 3165504 Milliliter(s) Inj 04/12/2015 04/12/2015 In active hydrocodone 5 mg-linh taminophen 325 mg tablet RxNorm: 683932 1 Tablet(s) PO Q8 as needed 03/30/2015 05/05/2015 Inactive Lantus 100 unit/mL s ubcutaneous solution RxNorm: 636184 25 Unit(s) SQ QPM 03/24/2015 04/25/2015 In active meclizine 25 mg tablet RxNorm: 370390 Tablet(s) TAKE ONE TABLET BY MOUTH EVERY 6 HOURS NEEDED 03/08/2015 04/06/2015 Inactive meclizine 25 mg tablet RxNorm: 657078 TAKE ONE TABLET BY MOUTH EVERY 6 HOURS A S NEEDED 02/25/2015 03/03/2015 Inactive Lantus 100 unit/mL s ubcutaneous solution RxNorm: 620420 20 Unit(s) SQ QPM 02/23/2015 03/23/2015 In active Lantus 100 unit/mL s ubcutaneous solution RxNorm: 064112 25 Unit(s) SQ QPM 02/23/2015 02/22/2015 In active hydrocodone 5 mg-linh taminophen 325 mg tablet RxNorm: 633185 1 Tablet(s) PO Q8 as needed 02/17/2015 03/29/2015 Inactive Xanax 0.5 mg tablet RxNorm: 165994 1 Tablet(s) PO TID 02/03/2015 06/29/2015 Inactive Lantus 100 unit/mL s ubcutaneous solution RxNorm: 555928 20 Unit(s) SQ QPM 12/29/2014 02/22/2015 In active Phenergan 12.5 mg re ctal suppository RxNorm: 721214 1 Suppository RTL Q6 PRN 12/23/2014 No Stop Date Active nausea Kenalog 40 mg/mL bartolome pension for injection RxNorm: 4553042 Milliliter(s) Inj 12/23/2014 12/23/2014 In active prednisone 20 mg tablet RxNorm: 508936 2 Tablet(s) PO daily 12/13/2014 12/17/2014 Inactive prednisone 20 mg tablet RxNorm: 639263 2 Tablet(s) PO daily 12/13/2014 12/12/2014 Inactive meclizine 25 mg tablet RxNorm: 613651 1 Tablet(s) PO Q6 PRN 12/09/2014 02/24/2015 Inactive hydrocodone 5 mg-linh taminophen 325 mg tablet RxNorm: 264483 1 Tablet(s) PO Q8 as needed 12/09/2014 02/16/2015 Inactive Vitamin B-12 1,000 m cg/mL oral drops RxNorm: 9888853 1 Milliliter(s) PO d aily No Start Date Active Alphagan P 0.1 % eye drops RxNorm: 581547 1 Drop(s) OPH BID No Start Date Active aspirin 325 mg table t,delayed release RxNorm: 916311 1 Tablet(s) PO daily No Start Date Active Tricor 145 mg tablet RxNorm: 118005 1 Tablet(s) PO daily No Start Date Active vitamin [id number] B1 oral liquid RxNorm: 1,000 Microgram(s) PO daily No Start Date Active atenolol 50 mg tablet RxNorm: 812381 1 Tablet(s) PO daily No Start Date Active Protonix 40 mg table t,delayed release RxNorm: 005908 1 Tablet(s) PO daily No Start Date 04/04/2016 Inactive glipizide 10 mg tablet RxNorm: 575235 1 Tablet(s) PO BID No Start Date 03/22/2015 Inactive Lantus 100 unit/mL s ubcutaneous solution RxNorm: 188735 15 Unit(s) SQ QPM No Start Date 12/28/2014 Inactive lisinopril 10 mg tablet RxNorm: 248244 1 Tablet(s) PO daily No Start Date 01/05/2016 Inactive Vitamin D2 50,000 un it capsule RxNorm: 101747 1 Capsule(s) PO QW No Start Date 08/01/2015 Inactive Touanuj SoloStar 300 unit/mL (1.5 mL) subcutaneous insulin pen RxNorm: 5837112 30 Unit(s) SQ QHS No Start Date 08/01/2015 Inactive simvastatin 40 mg ta blet RxNorm: 181690 1 Tablet(s) PO daily No Start Date 12/27/2015 Inactive testosterone cypiona te 200 mg/mL intramuscular oil RxNorm: 105547 1 Milliliter(s) IM monthly No Start Date 01/16/2018 Inactive hydrocodone 5 mg-linh taminophen 325 mg tablet RxNorm: 366120 1 Tablet(s) PO Q8 as needed No Start Date 12/08/2014 Inactive metformin 500 mg tablet RxNorm: 458712 1 Tablet(s) PO daily No Start Date 04/24/2015 Inactive omeprazole 20 mg cap jacquelyn,delayed release RxNorm: 850134 1 Capsule(s) PO daily No Start Date 10/05/2015 Inactive Flomax 0.4 mg capsule RxNorm: 380848 1 Capsule(s) PO daily No Start Date 03/23/2015 Inactive Medication Administered Medication Codes Instruc tions Start Date Status testosterone cypionate 200 mg/mL intramuscular oil RxNorm: 1759180 Milliliter 02/16/2019 No longer Active testosterone cypionate 200 mg/mL intramuscular oil RxNorm: 4311605 Milliliter 01/30/2019 No longer Active testosterone cypionate 200 mg/mL intramuscular oil RxNorm: 0446569 Milliliter 01/16/2019 No longer Active testosterone cypionate 200 mg/mL intramuscular oil RxNorm: 6525323 Milliliter 01/01/2019 No longer Active testosterone cypionate 200 mg/mL intramuscular oil RxNorm: 9944244 Milliliter 12/17/2018 No longer Active testosterone cypionate 200 mg/mL intramuscular oil RxNorm: 6965736 Milliliter 12/02/2018 No longer Active testosterone cypionate 200 mg/mL intramuscular oil RxNorm: 3475818 Milliliter 11/18/2018 No longer Active testosterone cypionate 200 mg/mL intramuscular oil RxNorm: 3297131 Milliliter 11/04/2018 No longer Active testosterone cypionate 200 mg/mL intramuscular oil RxNorm: 0680625 Milliliter 10/14/2018 No longer Active testosterone cypionate 200 mg/mL intramuscular oil RxNorm: 5930079 Milliliter 10/03/2018 No longer Active testosterone cypionate 200 mg/mL intramuscular oil RxNorm: 3341633 Milliliter 09/23/2018 No longer Active testosterone cypionate 200 mg/mL intramuscular oil RxNorm: 1917572 /2Milliliter 09/02/2018 No longer Active testosterone enanthate 200 mg/mL intramuscular oil RxNorm: 445108 Milliliter 08/21/2018 No longer Active testosterone cypionate 200 mg/mL intramuscular oil RxNorm: 1772260 Milliliter 08/08/2018 No longer Active testosterone cypionate 200 mg/mL intramuscular oil RxNorm: 5766261 2Milliliter 07/28/2018 No longer Active testosterone cypionate 200 mg/mL intramuscular oil RxNorm: 298564 Milliliter 07/16/2018 No longer Active testosterone cypionate 200 mg/mL intramuscular oil RxNorm: 273518 Milliliter 07/02/2018 No longer Active testosterone cypionate 200 mg/mL intramuscular oil RxNorm: 126989 Milliliter 06/24/2018 No longer Active testosterone cypionate 200 mg/mL intramuscular oil RxNorm: 151688 Milliliter 06/13/2018 No longer Active testosterone cypionate 200 mg/mL intramuscular oil RxNorm: 126839 Milliliter 06/05/2018 No longer Active testosterone cypionate 200 mg/mL intramuscular oil RxNorm: 943792 Milliliter 05/30/2018 No longer Active testosterone cypionate 200 mg/mL intramuscular oil RxNorm: 631891 Milliliter 05/22/2018 No longer Active testosterone cypionate 200 mg/mL intramuscular oil RxNorm: 752866 /2Milliliter 05/12/2018 No longer Active testosterone cypionate 200 mg/mL intramuscular oil RxNorm: 206321 Milliliter 05/02/2018 No longer Active testosterone cypionate 200 mg/mL intramuscular oil RxNorm: 158886 0.5Milliliter 04/24/2018 No longer Active testosterone cypionate 200 mg/mL intramuscular oil RxNorm: 767136 /2Milliliter 04/17/2018 No longer Active ketorolac 60 mg/2 mL intramuscular solution RxNorm: 4139799 Milliliter 03/07/2018 No longer Active Kenalog 40 mg/mL suspension for injection RxNorm: 3633772 1.5Milliliter 01/30/2018 No longer Active testosterone cypionate 200 mg/mL intramuscular oil RxNorm: 662719 Milliliter 01/17/2018 No longer Active Kenalog 40 mg/mL suspension for injection RxNorm: 3474158 Milliliter 04/12/2015 No longer Active Kenalog 40 mg/mL suspension for injection RxNorm: 6040827 Milliliter 12/23/2014 No longer Active Immunizations Vaccine Codes Date Status Influenza CVX: 141 06/06 completed Influenza CVX: 141 04/25 completed Pneumococcal (Adult) CVX: 133 04/25/2017 completed Influenza CVX: 141 05/22 completed Assessments Condition Codes Effectiv e Dates Mixed hyperlipidemia ICD-10: E78.2 ICD-9: 272.2 03/03/2019 Chronic obstructive pulmonary disease, unspecified ICD-10: J44.9 ICD-9: 496 03/03/2019 Abnormal weight loss ICD-10: R63.4 ICD-9: 783.21 03/03/2019 Testicular dysfunction, unspecified ICD-10: E29.9 ICD-9: 257.9 03/03/2019 Type 2 diabetes mellitus with hyperglycemia [...] 33.4 pg 12/02/2018 Cbc With Differential Ord2 [place]% 8.0 % 12/02/2018 Cbc With Differential Ord2 [...] 2.13 K/ul 12/02/2018 Cbc With Differential Ord2 [place] ABS# 0.6 K/ul 12/02/2018 Cbc With Differential Ord2 Eos ABS# 0.4 K/ul 12/02/2018 Cbc With Differential Ord2 Baso ABS# 0.0 K/ul 12/02/2018 Testosterone Qcb659 Testo 213.5 ng/dL 12/02/2018 A1C Frequency Nbz735 A1CF 00802-3 Last A1C performed [place] [facility] [place]: 201812/02/2018 Testosterone Ofn547 Testo 669.0 ng/dL 09/08/2018 %Hba1C Uyw824 % HbA1c 36080-5 7.4 % 09/08/2018 %Hba1C Eor942 Gluc Ave 166 mg/dL 09/08/2018 Lipid Ord30 CHOL 114 mg/dL 09/08/2018 Lipid Ord30 HDL 28.0 mg/dl 09/08/2018 Lipid Ord30 TRIG 154 mg/dL 09/08/2018 Lipid Ord30 LDL 55 mg/dL 09/08/2018 Lipid Ord30 C/HDL 4.1 Ratio 09/08/2018 Comp Metabolic Orn966 NA 137 mEq/L 09/08/2018 Comp Metabolic Aie120 K 4.3 mEq/L 09/08/2018 Comp Metabolic Raz696 CL 100 mEq/L 09/08/2018 Comp Metabolic Lvf951 CO2 27.0 mEq/L 09/08/2018 Comp Metabolic Ytp411 AN ION GAP 14 09/08/2018 Comp Metabolic Uan138 GL UCOSE 85 mg/dL 09/08/2018 Comp Metabolic Wtn974 Cr eat 1.1 mg/dL 09/08/2018 Comp Metabolic Kjs759 eG FR 70 ml/min/1.73m2 09/08 Comp Metabolic Oww149 BUN 11 mg/dL 09/08/2018 Comp Metabolic Gsp695 B/ C Ratio 10.3 Ratio 09/08/2018 Comp Metabolic Ywg881 CA LCIUM 9.2 mg/dL 09/08/2018 Comp Metabolic Ftt110 AL K PHOS 65 U/L 09/08/2018 Comp Metabolic Yxo806 T(SGOT) 16 U/L 09/08/2018 Comp Metabolic Zwi191 AL T(SGPT) 14 U/L 09/08/2018 Comp Metabolic Zxj497 BI LI T 0.6 mg/dL 09/08/2018 Comp Metabolic Foo575 AL BUMIN 4.0 g/dL 09/08/2018 Comp Metabolic Hqy837 TP RO 6.6 g/dL 09/08/2018 Comp Metabolic Zaf190 GL OB 2.6 g/dL 09/08/2018 Comp Metabolic Fnz067 A/ G Ratio 1.6 Ratio 09/08/2018 Comp Metabolic Juk662 Os mo 272 mOsmo 09/08/2018 Vitamin D 25 Oh Hjf8832 VITAMIN D, 25 HYDROXY 37.17 ng/mL 09/08/2018 [...] 33.3 pg 09/08/2018 Cbc With Differential Ord2 [place]% 8.1 % 09/08/2018 Cbc With Differential Ord2 [...] 2.44 K/ul 09/08/2018 Cbc With Differential Ord2 [place] ABS# 0.6 K/ul 09/08/2018 Cbc With Differential Ord2 Eos ABS# 0.3 K/ul 09/08/2018 Cbc With Differential Ord2 Baso ABS# 0.0 K/ul 09/08/2018 Tsh Ord6 TSH (3rd IS) 2.72 uIU/mL 09/08/2018 Comp Metabolic Ivm625 NA 139 mEq/L 04/01/2018 Comp Metabolic Wog051 K 4.2 mEq/L 04/01/2018 Comp Metabolic Uyh855 CL 102 mEq/L 04/01/2018 Comp Metabolic Rnu236 CO2 29.0 mEq/L 04/01/2018 Comp Metabolic Qdw029 AN ION GAP 12 04/01/2018 Comp Metabolic Sjb957 GL UCOSE 87 mg/dL 04/01/2018 Comp Metabolic Gsa645 Cr eat 1.1 mg/dL 04/01/2018 Comp Metabolic Xeh206 eG FR 70 ml/min/1.73m2 04/01 Comp Metabolic Wyb016 BUN 21 mg/dL 04/01/2018 Comp Metabolic Ftf297 B/ C Ratio 19.4 Ratio 04/01/2018 Comp Metabolic Nvp770 CA LCIUM 9.1 mg/dL 04/01/2018 Comp Metabolic Tny095 AL K PHOS 60 U/L 04/01/2018 Comp Metabolic Asx016 T(SGOT) 15 U/L 04/01/2018 Comp Metabolic Rpw138 AL T(SGPT) 18 U/L 04/01/2018 Comp Metabolic Ejp420 BI LI T 0.4 mg/dL 04/01/2018 Comp Metabolic Zfc673 AL BUMIN 4.0 g/dL 04/01/2018 Comp Metabolic Vcp126 TP RO 6.5 g/dL 04/01/2018 Comp Metabolic Ofr817 GL OB 2.5 g/dL 04/01/2018 Comp Metabolic Rwj977 A/ G Ratio 1.6 Ratio 04/01/2018 Comp Metabolic Ild730 Os mo 280 mOsmo 04/01/2018 Lipid Ord30 [...] 34.3 pg 04/01/2018 Cbc With Differential Ord2 [place]% 6.0 % 04/01/2018 Cbc With Differential Ord2 [...] 3.25 K/ul 04/01/2018 Cbc With Differential Ord2 [place] ABS# 0.6 K/ul 04/01/2018 Cbc With Differential Ord2 Eos ABS# 0.4 K/ul 04/01/2018 Cbc With Differential Ord2 Baso ABS# 0.0 K/ul 04/01/2018 %Hba1C Lnj275 % HbA1c 93242-4 8.0 % 04/01/2018 %Hba1C Yqx582 Gluc Ave 183 mg/dL 04/01/2018 Testosterone Lwv701 Testo 111.3 ng/dL 04/01/2018 Testosterone Kdi762 Testo 135.4 ng/dL 01/14/2018 Cbc With Differential [...] 36.0 pg 01/14/2018 Cbc With Differential Ord2 [place]% 6.8 % 01/14/2018 Cbc With Differential Ord2 [...] 2.71 K/ul 01/14/2018 Cbc With Differential Ord2 [place] ABS# 0.8 K/ul 01/14/2018 Cbc With Differential Ord2 Eos ABS# 0.2 K/ul 01/14/2018 Cbc With Differential Ord2 Baso ABS# 0.0 K/ul 01/14/2018 Comp Metabolic Xez697 NA 134 mEq/L 11/20/2017 Comp Metabolic Ill364 K 4.4 mEq/L 11/20/2017 Comp Metabolic Abn484 CL 99 mEq/L 11/20/2017 Comp Metabolic Ufi396 CO2 29.0 mEq/L 11/20/2017 Comp Metabolic Nin322 AN ION GAP 10 11/20/2017 Comp Metabolic Mdf567 GL UCOSE 218 mg/dL 11/20/2017 Comp Metabolic Hja270 Cr eat 1.0 mg/dL 11/20/2017 Comp Metabolic Plt495 eG FR 78 ml/min/1.73m2 11/20 Comp Metabolic Oeh533 BUN 13 mg/dL 11/20/2017 Comp Metabolic Qtu080 B/ C Ratio 13.3 Ratio 11/20/2017 Comp Metabolic Kcd662 CA LCIUM 9.0 mg/dL 11/20/2017 Comp Metabolic Ymk653 AL K PHOS 71 U/L 11/20/2017 Comp Metabolic Qoc421 T(SGOT) 18 U/L 11/20/2017 Comp Metabolic Otf077 AL T(SGPT) 17 U/L 11/20/2017 Comp Metabolic Iyi444 BI LI T 0.4 mg/dL 11/20/2017 Comp Metabolic Wdm993 AL BUMIN 4.1 g/dL 11/20/2017 Comp Metabolic Mqv339 TP RO 6.5 g/dL 11/20/2017 Comp Metabolic Cqk384 GL OB 2.4 g/dL 11/20/2017 Comp Metabolic Ruw553 A/ G Ratio 1.8 Ratio 11/20/2017 Comp Metabolic Mzj697 Os mo 275 mOsmo 11/20/2017 Cbc With [...] 35.2 pg 11/20/2017 Cbc With Differential Ord2 [place]% 7.2 % 11/20/2017 Cbc With Differential Ord2 [...] 3.34 K/ul 11/20/2017 Cbc With Differential Ord2 [place] ABS# 0.6 K/ul 11/20/2017 Cbc With Differential Ord2 Eos ABS# 0.3 K/ul 11/20/2017 Cbc With Differential Ord2 Baso ABS# 0.0 K/ul 11/20/2017 Vitamin D 25 Oh Vkq8869 VITAMIN D, 25 HYDROXY 43.72 ng/mL 11/20/2017 %Hba1C Hzm750 % HbA1c 24655-5 7.4 % 11/20/2017 %Hba1C Dja976 Gluc Ave 166 mg/dL 11/20/2017 %Hba1C Xyz948 % HbA1c 57130-2 7.2 % 08/20/2017 %Hba1C Bmn330 Gluc Ave 160 mg/dL 08/20/2017 Lipid Ord30 [...] 34.7 pg 08/20/2017 Cbc With Differential Ord2 [place]% 7.6 % 08/20/2017 Cbc With Differential Ord2 [...] 2.42 K/ul 08/20/2017 Cbc With Differential Ord2 [place] ABS# 0.6 K/ul 08/20/2017 Cbc With Differential Ord2 Eos ABS# 0.3 K/ul 08/20/2017 Cbc With Differential Ord2 Baso ABS# 0.0 K/ul 08/20/2017 Tsh Ord6 hTSH II 2.27 uIU/mL 08/20/2017 Comp Metabolic Ope758 NA 138 mEq/L 08/20/2017 Comp Metabolic Yjd707 K 4.3 mEq/L 08/20/2017 Comp Metabolic Tmf255 CL 102 mEq/L 08/20/2017 Comp Metabolic Qpr233 CO2 29.0 mEq/L 08/20/2017 Comp Metabolic Qyg200 AN ION GAP 11 08/20/2017 Comp Metabolic Hkk909 GL UCOSE 89 mg/dL 08/20/2017 Comp Metabolic Gbf893 Cr eat 1.0 mg/dL 08/20/2017 Comp Metabolic Llz438 eG FR 80 ml/min/1.73m2 08/20 Comp Metabolic Ecd060 BUN 13 mg/dL 08/20/2017 Comp Metabolic Tej840 B/ C Ratio 13.5 Ratio 08/20/2017 Comp Metabolic Bsm574 CA LCIUM 9.2 mg/dL 08/20/2017 Comp Metabolic Ndr093 AL K PHOS 69 U/L 08/20/2017 Comp Metabolic Eyc018 T(SGOT) 18 U/L 08/20/2017 Comp Metabolic Pke619 AL T(SGPT) 19 U/L 08/20/2017 Comp Metabolic Vdn096 BI LI T 0.6 mg/dL 08/20/2017 Comp Metabolic Ftx859 AL BUMIN 4.0 g/dL 08/20/2017 Comp Metabolic Akj534 TP RO 6.6 g/dL 08/20/2017 Comp Metabolic Zsn036 GL OB 2.6 g/dL 08/20/2017 Comp Metabolic Kxe532 A/ G Ratio 1.5 Ratio 08/20/2017 Comp Metabolic Xja628 Os mo 275 mOsmo 08/20/2017 Vitamin D 25 Oh Jfi5646 VITAMIN D, 25 HYDROXY 30.96 ng/mL 08/20/2017 B12 Yzm942 B12 >1500.00 pg/ml 02/22/2017 Cbc With Differential [...] 35.7 pg 02/20/2017 Cbc With Differential Ord2 [place]% 6.3 % 02/20/2017 Cbc With Differential Ord2 [...] 3.19 K/ul 02/20/2017 Cbc With Differential Ord2 [place] ABS# 0.5 K/ul 02/20/2017 Cbc With Differential Ord2 Eos ABS# 0.4 K/ul 02/20/2017 Cbc With Differential Ord2 Baso ABS# 0.0 K/ul 02/20/2017 Comp Metabolic Cyw780 NA 138 mEq/L 02/20/2017 Comp Metabolic Wgf793 K 4.5 mEq/L 02/20/2017 Comp Metabolic Gyi351 CL 101 mEq/L 02/20/2017 Comp Metabolic Uxm621 CO2 31.0 mEq/L 02/20/2017 Comp Metabolic Dpc366 AN ION GAP 11 02/20/2017 Comp Metabolic Xih911 GL UCOSE 120 mg/dL 02/20/2017 Comp Metabolic Kaj840 Cr eat 0.9 mg/dL 02/20/2017 Comp Metabolic Akt763 eG FR 83 ml/min/1.73m2 02/20 Comp Metabolic Ihn746 BUN 15 mg/dL 02/20/2017 Comp Metabolic Ejc166 B/ C Ratio 16.1 Ratio 02/20/2017 Comp Metabolic Ozy106 CA LCIUM 9.1 mg/dL 02/20/2017 Comp Metabolic Bsa527 AL K PHOS 67 U/L 02/20/2017 Comp Metabolic Ywy060 T(SGOT) 15 U/L 02/20/2017 Comp Metabolic Tqw043 AL T(SGPT) 16 U/L 02/20/2017 Comp Metabolic Bzs951 BI LI T 0.5 mg/dL 02/20/2017 Comp Metabolic Ido087 AL BUMIN 4.0 g/dL 02/20/2017 Comp Metabolic Hfn405 TP RO 6.4 g/dL 02/20/2017 Comp Metabolic Sba229 GL OB 2.4 g/dL 02/20/2017 Comp Metabolic Oka872 A/ G Ratio 1.7 Ratio 02/20/2017 Comp Metabolic Juq928 Os mo 278 mOsmo 02/20/2017 Tsh Ord6 hTSH II 2.05 uIU/mL 02/20/2017 %Hba1C Rlk809 % HbA1c 42284-1 7.6 % 02/20/2017 %Hba1C Ppf467 Gluc Ave 171 mg/dL 02/20/2017 Vitamin D 25 Oh Nvq1714 VITAMIN D, 25 HYDROXY 44.40 ng/mL 12/21/2016 Comp Metabolic Syp919 NA 131 mEq/L 12/21/2016 Comp Metabolic Cpq359 K 4.2 mEq/L 12/21/2016 Comp Metabolic Max152 CL 97 mEq/L 12/21/2016 Comp Metabolic Gaw336 CO2 27.0 mEq/L 12/21/2016 Comp Metabolic Lfg090 AN ION GAP 11 12/21/2016 Comp Metabolic Srr475 GL UCOSE 266 mg/dL 12/21/2016 Comp Metabolic Lxb922 Cr eat 0.9 mg/dL 12/21/2016 Comp Metabolic Bwg441 eG FR 88 ml/min/1.73m2 12/21 Comp Metabolic Mof586 BUN 12 mg/dL 12/21/2016 Comp Metabolic Yiw285 B/ C Ratio 13.6 Ratio 12/21/2016 Comp Metabolic Hcx234 CA LCIUM 8.6 mg/dL 12/21/2016 Comp Metabolic Zox984 AL K PHOS 69 U/L 12/21/2016 Comp Metabolic Ysq031 T(SGOT) 15 U/L 12/21/2016 Comp Metabolic Tpw258 AL T(SGPT) 14 U/L 12/21/2016 Comp Metabolic Rol541 BI LI T 0.3 mg/dL 12/21/2016 Comp Metabolic Hhk048 AL BUMIN 3.7 g/dL 12/21/2016 Comp Metabolic Aix784 TP RO 5.9 g/dL 12/21/2016 Comp Metabolic Rgl177 GL OB 2.2 g/dL 12/21/2016 Comp Metabolic Lwv898 A/ G Ratio 1.7 Ratio 12/21/2016 Comp Metabolic Irj707 Os mo 272 mOsmo 12/21/2016 Cbc With [...] 34.6 pg 12/21/2016 Cbc With Differential Ord2 [place]% 6.9 % 12/21/2016 Cbc With Differential Ord2 [...] 2.05 K/ul 12/21/2016 Cbc With Differential Ord2 [place] ABS# 0.4 K/ul 12/21/2016 Cbc With Differential Ord2 Eos ABS# 0.2 K/ul 12/21/2016 Cbc With Differential Ord2 Baso ABS# 0.0 K/ul 12/21/2016 Comp Metabolic Omp640 NA 138 mEq/L 09/03/2016 Comp Metabolic Aya617 K 4.5 mEq/L 09/03/2016 Comp Metabolic Rui209 CL 102 mEq/L 09/03/2016 Comp Metabolic Swe946 CO2 30.0 mEq/L 09/03/2016 Comp Metabolic Khl577 AN ION GAP 11 09/03/2016 Comp Metabolic Flw728 GL UCOSE 113 mg/dL 09/03/2016 Comp Metabolic Pzg902 Cr eat 1.0 mg/dL 09/03/2016 Comp Metabolic Oro598 eG FR 81 ml/min/1.73m2 09/03 Comp Metabolic Thz672 BUN 10 mg/dL 09/03/2016 Comp Metabolic Jlm105 B/ C Ratio 10.5 Ratio 09/03/2016 Comp Metabolic Afw343 CA LCIUM 9.1 mg/dL 09/03/2016 Comp Metabolic Zql060 AL K PHOS 71 U/L 09/03/2016 Comp Metabolic Dbd322 T(SGOT) 18 U/L 09/03/2016 Comp Metabolic Pdg598 AL T(SGPT) 17 U/L 09/03/2016 Comp Metabolic Bvp126 BI LI T 0.6 mg/dL 09/03/2016 Comp Metabolic Pma247 AL BUMIN 4.1 g/dL 09/03/2016 Comp Metabolic Thg234 TP RO 6.4 g/dL 09/03/2016 Comp Metabolic Kyf208 GL OB 2.3 g/dL 09/03/2016 Comp Metabolic Wwj196 A/ G Ratio 1.8 Ratio 09/03/2016 Comp Metabolic Bjn631 Os mo 276 mOsmo 09/03/2016 Vitamin D 25 Oh Opb7767 VITAMIN D, 25 HYDROXY 28.23 ng/mL 09/03/2016 [...] 34.4 pg 09/03/2016 Cbc With Differential Ord2 [place]% 8.9 % 09/03/2016 Cbc With Differential Ord2 [...] 3.34 K/ul 09/03/2016 Cbc With Differential Ord2 [place] ABS# 0.7 K/ul 09/03/2016 Cbc With Differential Ord2 Eos ABS# 0.4 K/ul 09/03/2016 Cbc With Differential Ord2 Baso ABS# 0.0 K/ul 09/03/2016 Lipid Ord30 CHOL 120 mg/dL 09/03/2016 Lipid Ord30 HDL 33.0 mg/dl 09/03/2016 Lipid Ord30 TRIG 161 mg/dL 09/03/2016 Lipid Ord30 LDL 55 mg/dL 09/03/2016 Lipid Ord30 C/HDL 3.6 Ratio 09/03/2016 %Hba1C Jsz509 % HbA1c 14874-5 7.5 % 09/03/2016 %Hba1C Mjt940 Gluc Ave 169 mg/dL 09/03/2016 Tsh Ord6 hTSH II 1.50 uIU/mL 05/23/2016 %Hba1C Rja837 % HbA1c 53658-0 7.6 % 05/23/2016 %Hba1C Ehx056 Gluc Ave 171 mg/dL 05/23/2016 Comp Metabolic Awj636 NA 135 mEq/L 05/23/2016 Comp Metabolic Ykf701 K 4.4 mEq/L 05/23/2016 Comp Metabolic Vxy854 CL 99 mEq/L 05/23/2016 Comp Metabolic Ixq051 CO2 28.0 mEq/L 05/23/2016 Comp Metabolic Hfc037 AN ION GAP 12 05/23/2016 Comp Metabolic Uup792 GL UCOSE 257 mg/dL 05/23/2016 Comp Metabolic Uog959 Cr eat 0.8 mg/dL 05/23/2016 Comp Metabolic Nse791 eG FR 95 ml/min/1.73m2 05/23 Comp Metabolic Wkj618 BUN 11 mg/dL 05/23/2016 Comp Metabolic Yuf413 B/ C Ratio 13.3 Ratio 05/23/2016 Comp Metabolic Joq044 CA LCIUM 9.0 mg/dL 05/23/2016 Comp Metabolic Lxm327 AL K PHOS 82 U/L 05/23/2016 Comp Metabolic Fhi723 T(SGOT) 21 U/L 05/23/2016 Comp Metabolic Pzu247 AL T(SGPT) 20 U/L 05/23/2016 Comp Metabolic Ffz155 BI LI T 0.3 mg/dL 05/23/2016 Comp Metabolic Qjz407 AL BUMIN 4.0 g/dL 05/23/2016 Comp Metabolic Urs104 TP RO 6.4 g/dL 05/23/2016 Comp Metabolic Kzf310 GL OB 2.4 g/dL 05/23/2016 Comp Metabolic Xqb195 A/ G Ratio 1.6 Ratio 05/23/2016 Comp Metabolic Kku113 Os mo 278 mOsmo 05/23/2016 Cbc With [...] 34.5 pg 05/23/2016 Cbc With Differential Ord2 [place]% 6.1 % 05/23/2016 Cbc With Differential Ord2 [...] 2.38 K/ul 05/23/2016 Cbc With Differential Ord2 [place] ABS# 0.4 K/ul 05/23/2016 Cbc With Differential Ord2 Eos ABS# 0.2 K/ul 05/23/2016 Cbc With Differential Ord2 Baso ABS# 0.0 K/ul 05/23/2016 B12 Mzs580 B12 597.00 pg/ml 05/23/2016 Metabolic Ord15 NA [...] 0.92 uIU/mL 07/29/2015 Vitamin D 25 Oh Jbi6300 VITAMIN D, 25 HYDROXY 26.93 ng/mL 07/29/2015 %Hba1C Okj622 % HbA1c 01054-7 8.8 % 07/29/2015 %Hba1C Nwb365 Gluc Ave 206 mg/dL 07/29/2015 Cbc With [...] Ord2 RDW 14.9 % 07/29/2015 Comp Metabolic Fwf656 NA 138 mEq/L 07/29/2015 Comp Metabolic Iwm588 K 4.4 mEq/L 07/29/2015 Comp Metabolic Ahy457 CL 102 mEq/L 07/29/2015 Comp Metabolic Uyd138 CO2 28.0 mEq/L 07/29/2015 Comp Metabolic Cbp040 AN ION GAP 12 07/29/2015 Comp Metabolic Qmi665 GL UCOSE 261 mg/dL 07/29/2015 Comp Metabolic Cte547 Cr eat 1.0 mg/dL 07/29/2015 Comp Metabolic Wgo658 eG FR 77 ml/min/1.73m2 07/29 Comp Metabolic Suu264 BUN 13 mg/dL 07/29/2015 Comp Metabolic Vcu565 B/ C Ratio 13.0 Ratio 07/29/2015 Comp Metabolic Bmq917 CA LCIUM 9.1 mg/dL 07/29/2015 Comp Metabolic Kep180 AL K PHOS 64 U/L 07/29/2015 Comp Metabolic Lwc426 T(SGOT) 20 U/L 07/29/2015 Comp Metabolic Scf598 AL T(SGPT) 22 U/L 07/29/2015 Comp Metabolic Hwd329 BI LI T 0.4 mg/dL 07/29/2015 Comp Metabolic Kbw208 AL BUMIN 4.0 g/dL 07/29/2015 Comp Metabolic Nko307 TP RO 6.1 g/dL 07/29/2015 Comp Metabolic Gqg641 GL OB 2.1 g/dL 07/29/2015 Comp Metabolic Etb058 A/ G Ratio 1.9 Ratio 07/29/2015 Comp Metabolic Lkn190 Os mo 285 mOsmo 07/29/2015 Cbc With [...] Ord2 RDW 13.1 % 05/06/2015 Comp Metabolic Joz737 NA 134 mEq/L 05/06/2015 Comp Metabolic Acw363 K 4.4 mEq/L 05/06/2015 Comp Metabolic Miu561 CL 98 mEq/L 05/06/2015 Comp Metabolic Dsl495 CO2 29.0 mEq/L 05/06/2015 Comp Metabolic Azl852 AN ION GAP 11 05/06/2015 Comp Metabolic Cgu116 GL UCOSE 321 mg/dL 05/06/2015 Comp Metabolic Pef104 Cr eat 1.0 mg/dL 05/06/2015 Comp Metabolic Dbd075 eG FR 78 ml/min/1.73m2 05/06 Comp Metabolic Ucl168 BUN 20 mg/dL 05/06/2015 Comp Metabolic Ljo728 B/ C Ratio 20.4 Ratio 05/06/2015 Comp Metabolic Yyb908 CA LCIUM 9.5 mg/dL 05/06/2015 Comp Metabolic Mkb043 AL K PHOS 62 U/L 05/06/2015 Comp Metabolic Wtq738 T(SGOT) 21 U/L 05/06/2015 Comp Metabolic Mbd869 AL T(SGPT) 37 U/L 05/06/2015 Comp Metabolic Ywi838 BI LI T 0.4 mg/dL 05/06/2015 Comp Metabolic Stz166 AL BUMIN 3.8 g/dL 05/06/2015 Comp Metabolic Cqi401 TP RO 6.1 g/dL 05/06/2015 Comp Metabolic Pik977 GL OB 2.3 g/dL 05/06/2015 Comp Metabolic Kkk021 A/ G Ratio 1.7 Ratio 05/06/2015 Comp Metabolic Cle150 Os mo 283 mOsmo 05/06/2015 Tsh Ord6 hTSH II 1.65 uIU/mL 02/18/2015 B12 Qzz191 B12 605.00 pg/ml 02/18/2015 %Hba1C Myd078 % HbA1c 34563-3 8.3 % 02/18/2015 %Hba1C Tlb335 Gluc Ave 192 mg/dL 02/18/2015 Cbc With [...] Ord2 RDW 13.9 % 02/17/2015 Comp Metabolic Ljg243 NA 137 mEq/L 02/17/2015 Comp Metabolic Kzd858 K 4.4 mEq/L 02/17/2015 Comp Metabolic Nxo300 CL 100 mEq/L 02/17/2015 Comp Metabolic Ajt345 CO2 31.0 mEq/L 02/17/2015 Comp Metabolic Cki282 AN ION GAP 10 02/17/2015 Comp Metabolic Poj927 GL UCOSE 307 mg/dL 02/17/2015 Comp Metabolic Bin844 Cr eat 1.0 mg/dL 02/17/2015 Comp Metabolic Ubo507 eG FR 74 ml/min/1.73m2 02/17 Comp Metabolic Qsl151 BUN 22 mg/dL 02/17/2015 Comp Metabolic Kuz643 B/ C Ratio 21.4 Ratio 02/17/2015 Comp Metabolic Hbp924 CA LCIUM 9.5 mg/dL 02/17/2015 Comp Metabolic Ije334 AL K PHOS 78 U/L 02/17/2015 Comp Metabolic Alh375 T(SGOT) 18 U/L 02/17/2015 Comp Metabolic Bhv723 AL T(SGPT) 32 U/L 02/17/2015 Comp Metabolic Aun897 BI LI T 0.5 mg/dL 02/17/2015 Comp Metabolic Sby507 AL BUMIN 4.3 g/dL 02/17/2015 Comp Metabolic Hjo825 TP RO 6.7 g/dL 02/17/2015 Comp Metabolic Ubw053 GL OB 2.4 g/dL 02/17/2015 Comp Metabolic Udu756 A/ G Ratio 1.8 Ratio 02/17/2015 Comp Metabolic Pki726 Os mo 289 mOsmo 02/17/2015 Review of [...] clear 09/02/2018 None Full Exam - General 1995 Ears/Nose/Throat [...] Procedure Codes Date THER/PROPH/DIAG INJ SC/IM CPT-4: 48396 02/16/2019 THER/PROPH/DIAG INJ SC/IM CPT-4: 07129 01/30/2019 THER/PROPH/DIAG INJ SC/IM CPT-4: 62320 01/16/2019 THER/PROPH/DIAG INJ SC/IM CPT-4: 57088 01/01/2019 THER/PROPH/DIAG INJ SC/IM CPT-4: 99128 12/17/2018 THER/PROPH/DIAG INJ SC/IM CPT-4: 40322 12/02/2018 THER/PROPH/DIAG INJ SC/IM CPT-4: 24568 11/18/2018 THER/PROPH/DIAG INJ SC/IM CPT-4: 44437 11/04/2018 THER/PROPH/DIAG INJ SC/IM CPT-4: 12112 10/14/2018 THER/PROPH/DIAG INJ SC/IM CPT-4: 61067 10/03/2018 THER/PROPH/DIAG INJ SC/IM CPT-4: 43631 09/23/2018 THER/PROPH/DIAG INJ SC/IM CPT-4: 56585 09/02/2018 THER/PROPH/DIAG INJ SC/IM CPT-4: 67121 08/21/2018 THER/PROPH/DIAG INJ SC/IM CPT-4: 21366 08/08/2018 THER/PROPH/DIAG INJ SC/IM CPT-4: 39719 07/28/2018 THER/PROPH/DIAG INJ SC/IM CPT-4: 97677 07/16/2018 THER/PROPH/DIAG INJ SC/IM CPT-4: 48774 07/02/2018 PPPS, SUBSEQ VISIT CPT- 4: G0439 06/30/2018 THER/PROPH/DIAG INJ SC/IM CPT-4: 52150 06/24/2018 THER/PROPH/DIAG INJ SC/IM CPT-4: 16807 06/13/2018 ADMIN INFLUENZA VIRU S VAC CPT-4: G0008 06/06/2018 FLU VACC PRSV FREE I NC ANTIG CPT-4: 02084 06/06/2018 THER/PROPH/DIAG INJ SC/IM CPT-4: 99713 06/05/2018 THER/PROPH/DIAG INJ SC/IM CPT-4: 93584 05/30/2018 THER/PROPH/DIAG INJ SC/IM CPT-4: 68559 05/22/2018 THER/PROPH/DIAG INJ SC/IM CPT-4: 21554 05/12/2018 THER/PROPH/DIAG INJ SC/IM CPT-4: 78984 05/02/2018 THER/PROPH/DIAG INJ SC/IM CPT-4: 63009 04/24/2018 THER/PROPH/DIAG INJ SC/IM CPT-4: 74448 04/17/2018 KETOROLAC TROMETHAMI NE INJ CPT-4: J1885 03/07/2018 URINALYSIS NONAUTO W /O SCOPE CPT-4: 52698 03/07/2018 THER/PROPH/DIAG INJ SC/IM CPT-4: 25000 02/20/2018 TRIAMCINOLONE ACET I [place] NOS CPT-4: J3301 01/30/2018 THER/PROPH/DIAG INJ SC/IM CPT-4: 09316 01/17/2018 TOBACCO-USE WOODWORKING BENCH CARPENTER 3-[address]: 613071145 CPT-4: G0436 04/25/2017 ADMIN INFLUENZA VIRU S VAC CPT-4: G0008 04/25/2017 ADMIN PNEUMOCOCCAL V ACCINE SNOMED CT: 04292279 CPT-4: G0009 04/25/2017 PNEUMOCOCCAL VACC [address]: 96253604 CPT-4: 97200 04/25/2017 FLU VACC PRSV FREE I NC ANTIG CPT-4: 08610 04/25/2017 ADMIN INFLUENZA VIRU S VAC CPT-4: G0008 05/22/2016 FLU VACC 4 TELLY 3 YRS PLUS IM Formatting Model/CDA Sections, Assigned to/Angela Clemons SNOMED CT: 41357604 CPT-4: 44801Zttekkf 05/22/2016 TOBACCO-USE WOODWORKING BENCH CARPENTER 3-[address]: 713395262 CPT-4: G0436 11/25/2015 URINALYSIS NONAUTO W /O SCOPE CPT-4: 70888 05/09/2015 TRIAMCINOLONE ACET I [place] NOS CPT-4: J3301 04/12/2015 DESTRUCT PREMALG LESION CPT-4: 09596 03/07/2015 DESTRUCT PREMALG LES 2-14 CPT-4: 95573 03/07/2015 REMOVE IMPACTED EAR WAX UNI CPT-4: 10344 12/31/2014 THER/PROPH/DIAG INJ SC/IM CPT-4: 92997 12/23/2014 TRIAMCINOLONE ACET I [place] NOS CPT-4: J3301 12/23/2014 Vital Signs Date Vital 03/03/2019 Blood Pressure 1: 150/72 Code: 8480-6 BMI: 20.6 Code: 24194-2 Heart Rate 1: 63 bpm Height: 5'11" SpO2: 100% Weight: 147 lbs 8 oz 12/02/2018 Blood Pressure 1: 140/70 Code: 8480-6 BMI: 21.9 Code: 99819-0 Heart Rate 1: 61 bpm Height: 5'11" SpO2: 94% Weight: 157 lbs 10/17/2018 Blood Pressure 1: 124/54 Code: 8480-6 BMI: 21.9 Code: 62935-0 Heart Rate 1: 64 bpm Height: 5'11" SpO2: 93% Weight: 157 lbs 09/02/2018 Blood Pressure 1: 140/80 Code: 8480-6 BMI: 21.2 Code: 10603-0 Heart Rate 1: 68 bpm Height: 5'11" SpO2: 97% Weight: 152 lbs 06/30/2018 BMI: 21.8 Code: 75716-6 Height: 5'11" Weight: 156 lbs 06/06/2018 Blood Pressure 1: 128/76 Code: 8480-6 BMI: 22.0 Code: 06091-2 Heart Rate 1: 81 bpm Height: 5'11" SpO2: 92% Weight: 158 lbs 04/04/2018 Blood Pressure 1: 124/70 Code: 8480-6 BMI: 20.8 Code: 49783-5 Heart Rate 1: 65 bpm Height: 5'11" SpO2: 95% Weight: 149 lbs 03/07/2018 Blood Pressure 1: 148/70 Code: 8480-6 BMI: 21.2 Code: 32723-4 Heart Rate 1: 66 bpm Height: 5'11" SpO2: 94% Weight: 152 lbs 02/20/2018 Blood Pressure 1: 134/58 Code: 8480-6 BMI: 20.5 Code: 12101-6 Heart Rate 1: 61 bpm Height: 5'11" SpO2: 92% Weight: 147 lbs 01/30/2018 Blood Pressure 1: 158/68 Code: 8480-6 BMI: 21.5 Code: 79163-0 Heart Rate 1: 71 bpm Height: 5'11" SpO2: 92% Weight: 154 lbs 01/14/2018 Blood Pressure 1: 156/70 Code: 8480-6 Height: Weight: 01/13/2018 Blood Pressure 1: 148/62 Code: 8480-6 BMI: 20.9 Code: 54346-0 Heart Rate 1: 54 bpm Height: 5'11" SpO2: 97% Weight: 150 lbs 11/19/2017 Blood Pressure 1: 150/60 Code: 8480-6 BMI: 21.8 Code: 57512-2 Heart Rate 1: 63 bpm Height: 5'11" SpO2: 98% Weight: 156 lbs 10/02/2017 Blood Pressure 1: 168/60 Code: 8480-6 BMI: 21.9 Code: 70740-0 Heart Rate 1: 52 bpm Height: 5'11" SpO2: 97% Weight: 157 lbs 07/23/2017 Blood Pressure 1: 170/70 Code: 8480-6 BMI: 21.8 Code: 31079-2 Heart Rate 1: 65 bpm Height: 5'11" SpO2: 98% Weight: 156 lbs 04/25/2017 Blood Pressure 1: 138/60 Code: 8480-6 BMI: 21.6 Code: 06169-1 Heart Rate 1: 55 bpm Height: 5'11" SpO2: 93% Weight: 155 lbs 02/19/2017 Blood Pressure 1: 138/64 Code: 8480-6 BMI: 21.3 Code: 48782-4 Heart Rate 1: 52 bpm Height: 5'11" SpO2: 96% Weight: 152 lbs 8 oz 01/21/2017 Blood Pressure 1: 160/68 Code: 8480-6 BMI: 21.3 Code: 82548-1 Heart Rate 1: 62 bpm Height: 5'11" SpO2: 96% Weight: 153 lbs 12/20/2016 Blood Pressure 1: 124/66 Code: 8480-6 BMI: 21.5 Code: 53264-5 Height: 5'11" Weight: 154 lbs 08/23/2016 Blood Pressure 1: 142/52 Code: 8480-6 BMI: 21.2 Code: 20458-9 Heart Rate 1: 54 bpm Height: 5'11" SpO2: 96% Weight: 152 lbs 05/22/2016 Blood Pressure 1: 130/76 Code: 8480-6 BMI: 21.5 Code: 01585-9 Heart Rate 1: 78 bpm Height: 5'11" SpO2: 92% Weight: 154 lbs 02/24/2016 Blood Pressure 1: 128/80 Code: 8480-6 BMI: 21.2 Code: 90386-0 Heart Rate 1: 74 bpm Height: 5'11" SpO2: 96% Weight: 152 lbs 01/27/2016 Blood Pressure 1: 144/60 Code: 8480-6 BMI: 21.2 Code: 66452-8 Heart Rate 1: 74 bpm Height: 5'11" SpO2: 97% Weight: 152 lbs 11/25/2015 Blood Pressure 1: 110/52 Code: 8480-6 BMI: 21.9 Code: 83448-3 Heart Rate 1: 65 bpm Height: 5'11" SpO2: 92% Weight: 157 lbs 07/28/2015 Blood Pressure 1: 138/62 Code: 8480-6 BMI: 21.8 Code: 96580-3 Heart Rate 1: 63 bpm Height: 5'11" SpO2: 91% Weight: 156 lbs 05/26/2015 Blood Pressure 1: 120/58 Code: 8480-6 BMI: 21.5 Code: 74358-6 Heart Rate 1: 99 bpm Height: 5'11" SpO2: 96% Weight: 154 lbs 05/06/2015 Blood Pressure 1: 120/58 Code: 8480-6 BMI: 21.2 Code: 47408-1 Heart Rate 1: 66 bpm Height: 5'11" SpO2: 96% Weight: 152 lbs 04/25/2015 Blood Pressure 1: 136/62 Code: 8480-6 BMI: 21.2 Code: 19992-2 Heart Rate 1: 63 bpm Height: 5'11" SpO2: 97% Weight: 152 lbs 04/12/2015 Blood Pressure 1: 160/58 Code: 8480-6 BMI: 21.6 Code: 99449-5 Heart Rate 1: 62 bpm Height: 5'11" Weight: 155 lbs 03/24/2015 Blood Pressure 1: 138/68 Code: 8480-6 BMI: 22.0 Code: 90364-0 Heart Rate 1: 65 bpm Height: 5'11" SpO2: 96% Weight: 158 lbs 03/07/2015 Blood Pressure 1: 116/52 Code: 8480-6 BMI: 22.2 Code: 37932-9 Heart Rate 1: 64 bpm Height: 5'11" SpO2: 97% Weight: 159 lbs 02/17/2015 Blood Pressure 1: 148/58 Code: 8480-6 BMI: 21.3 Code: 41205-6 Heart Rate 1: 63 bpm Height: 5'11" SpO2: 97% Weight: 153 lbs 12/31/2014 Blood Pressure 1: 100/60 Code: 8480-6 BMI: 21.8 Code: 01583-3 Heart Rate 1: 68 bpm Height: 5'11" Weight: 156 lbs 12/23/2014 Blood Pressure 1: 148/64 Code: 8480-6 BMI: 21.9 Code: 56174-4 Heart Rate 1: 64 bpm Height: 5'11" [...] daily 11/25/2015 None cough Location in the [facility] 11/25/2015 None cough Quality acute 11/25/2015 [...] Encounters Encounter Performer Loca tion Codes Date ([id number]) 85323 EST. [facility] Diagnosis: Chronic obstructive pulmonary disease, unspecified[ICD10: J44.9] Diagnosis: Mixed hyperlipidemia[ICD10: E78.2] Diagnosis: Type 2 diabetes mellitus with hyperglycemia[ICD10: E11.65] Diagnosis: Testicular dysfunction, unspecified[ICD10: E29.9] Diagnosis: Abnormal weight loss[ICD10: R63.4] Karmen Ash MD, [facility] CPT-4: 88118 03/03/2019 [id number]) 11760 EST. [facility] Diagnosis: Chronic obstructive pulmonary disease, unspecified[ICD10: J44.9] Diagnosis: Type 2 diabetes mellitus with hyperglycemia[ICD10: E11.65] Diagnosis: Testicular dysfunction, unspecified[ICD10: E29.9] Diagnosis: Other insomnia[ICD10: G47.09] Karmen Ash MD, [facility] CPT- 4: 98994 12/02/2018 [id number]) 17352 EST. P AT[place], LEVEL III Diagnosis: Orthostatic hypotension[ICD10: I95.1] Diagnosis: Low back pain[ICD10: M54.5] Diagnosis: Unsteadiness on feet[ICD10: R26.81] Karmen Ash MD, [facility] CPT-4: 75879 10/17/2018 ([id number]) 91786 EST. P ATIENT, LEVEL IV Diagnosis: Essential (primary) hypertension[ICD10: I10] Diagnosis: Chronic obstructive pulmonary disease, unspecified[ICD10: J44.9] Diagnosis: Type 2 diabetes mellitus with hyperglycemia[ICD10: E11.65] Diagnosis: Vitamin D deficiency, unspecified[ICD10: E55.9] Diagnosis: Mixed hyperlipidemia[ICD10: E78.2] Diagnosis: Testicular dysfunction, unspecified[ICD10: E29.9] Karmen Ash MD, [facility] CPT-4: 25410 09/02/2018 ([id number]) 66823 EST. P ATIENT, LEVEL IV Diagnosis: Cellulitis of face[ICD10: L03.211] Diagnosis: Type 2 diabetes mellitus without complications[ICD10: E11.9] Diagnosis: Essential (primary) hypertension[ICD10: I10] Diagnosis: Encounter for immunization[ICD10: Z23] Karmen Ash MD, [facility] CPT-4: 19711 06/06/2018 ([id number]) 79842 EST. P ATIENT, LEVEL IV Diagnosis: Essential (primary) hypertension[ICD10: I10] Diagnosis: Chronic obstructive pulmonary disease, unspecified[ICD10: J44.9] Diagnosis: Testicular dysfunction, unspecified[ICD10: E29.9] Diagnosis: Type 2 diabetes mellitus with hyperglycemia[ICD10: E11.65] Karmen Ash MD, [facility] CPT-4: 61346 04/04/2018 ([id number]) 21359 EST. P ATIENT, LEVEL III Diagnosis: Low back pain[ICD10: M54.5] Diagnosis: Dysuria[ICD10: R30.0] Karmen Ash MD, [facility] CPT-4: 35886 03/07/2018 ([id number]) 26835 EST. P ATIENT, LEVEL IV Diagnosis: Essential (primary) hypertension[ICD10: I10] Diagnosis: Chronic obstructive pulmonary disease, unspecified[ICD10: J44.9] Diagnosis: Abnormal weight loss[ICD10: R63.4] Diagnosis: Low back pain[ICD10: M54.5] Diagnosis: Testicular dysfunction, unspecified[ICD10: E29.9] Diagnosis: Type 2 diabetes mellitus with hyperglycemia[ICD10: E11.65] Karmen Ash MD, [facility] CPT-4: 35793 02/20/2018 ([id number]) 97475 EST. P ATIENT, LEVEL III Diagnosis: Chronic obstructive pulmonary disease with (acute) exacerbation[ICD10: J44.1] Karmen Ash MD, [facility] CPT-4: 63935 01/30/2018 02742 EST. PATIENT, LEVEL II Diagnosis: Insect bite (nonvenomous), left lower leg, initial encounter[ICD10: S80.862A] Karmen Ash MD, [facility] CPT-4: 60120 01/14/2018 ([id number]) 16502 EST. P ATIENT, LEVEL IV Diagnosis: Type 2 diabetes mellitus with hyperglycemia[ICD10: E11.65] Diagnosis: Chronic obstructive pulmonary disease, unspecified[ICD10: J44.9] Diagnosis: Other fatigue[ICD10: R53.83] Karmen Ash MD, [facility] CPT- 4: 90712 01/13/2018 ([id number]) 76461 EST. P ATIENT, LEVEL IV Diagnosis: Type 2 diabetes mellitus with hyperglycemia[ICD10: E11.65] Diagnosis: Vitamin D deficiency, unspecified[ICD10: E55.9] Diagnosis: Essential (primary) hypertension[ICD10: I10] Diagnosis: Abdominal distension (gaseous)[ICD10: R14.0] Diagnosis: Drug induced constipation[ICD10: K59.03] Karmen Ash MD, [facility] CPT-4: 02307 11/19/2017 51119 EST. PATIENT, LEVEL IV Diagnosis: Low back pain[ICD10: M54.5] Diagnosis: Chronic obstructive pulmonary disease, unspecified[ICD10: J44.9] Brunilda Ash MD, [facility] CPT-4: 92086 10/02/2017 ([id number]) 10936 EST. P ATIENT, LEVEL IV Diagnosis: Essential (primary) hypertension[ICD10: I10] Diagnosis: Type 2 diabetes mellitus with hyperglycemia[ICD10: E11.65] Diagnosis: Vitamin D deficiency, unspecified[ICD10: E55.9] Diagnosis: Mixed hyperlipidemia[ICD10: E78.2] Karmen Ash MD, [facility] CPT-4: 10469 07/23/2017 ([id number]) 20563 EST. P ATIENT, LEVEL IV Diagnosis: Essential (primary) hypertension[ICD10: I10] Diagnosis: Type 2 diabetes mellitus with hyperglycemia[ICD10: E11.65] Diagnosis: Chronic obstructive pulmonary disease, unspecified[ICD10: J44.9] Diagnosis: Nicotine dependence, unspecified, uncomplicated[ICD10: F17.200] Diagnosis: Encounter for immunization[ICD10: Z23] Karmen Ash MD, [facility] CPT-4: 99222 04/25/2017 ([id number]) 18815 EST. P ATIENT, LEVEL IV Diagnosis: Type 2 diabetes mellitus with hyperglycemia[ICD10: E11.65] Diagnosis: Essential (primary) hypertension[ICD10: I10] Diagnosis: Anemia, unspecified[ICD10: D64.9] Karmen Ash MD, [facility] CPT- 4: 94538 02/19/2017 ([id number]) 73712 EST. P ATIENT, LEVEL IV Diagnosis: Slow transit constipation[ICD10: K59.01] Diagnosis: Gastro-esophageal reflux disease without esophagitis[ICD10: K21.9] Diagnosis: Essential (primary) hypertension[ICD10: I10] Karmen Ash MD, [facility] CPT-4: 15740 01/21/2017 ([id number]) 12477 EST. P ATIENT, LEVEL IV Diagnosis: Type 2 diabetes mellitus with hyperglycemia[ICD10: E11.65] Diagnosis: Vitamin D deficiency, unspecified[ICD10: E55.9] Diagnosis: Essential (primary) hypertension[ICD10: I10] Diagnosis: Chronic obstructive pulmonary disease, unspecified[ICD10: J44.9] Karmen Ash MD, [facility] CPT-4: 03403 12/20/2016 ([id number]) 89382 EST. P ATIENT, LEVEL IV Diagnosis: Type 2 diabetes mellitus with hyperglycemia[ICD10: E11.65] Diagnosis: Essential (primary) hypertension[ICD10: I10] Diagnosis: Mixed hyperlipidemia[ICD10: E78.2] Diagnosis: Vitamin D deficiency, unspecified[ICD10: E55.9] Karmen Ash MD, [facility] CPT-4: 71882 08/23/2016 ([id number]) 82685 EST. P ATIENT, LEVEL IV Diagnosis: Type 2 diabetes mellitus with hyperglycemia[ICD10: E11.65] Diagnosis: Essential (primary) hypertension[ICD10: I10] Diagnosis: Chronic obstructive pulmonary disease, unspecified[ICD10: J44.9] Karmen Ash MD, [facility] CPT-4: 87931 05/22/2016 ([id number]) 69966 EST. P ATIENT, LEVEL III Diagnosis: Dysuria[ICD10: R30.0] Diagnosis: Essential (primary) hypertension[ICD10: I10] Karmen Ash MD, [facility] CPT-4: 08852 02/24/2016 ([id number]) 10487 EST. P ATIENT, LEVEL IV Diagnosis: Gastro-esophageal reflux disease without esophagitis[ICD10: K21.9] Diagnosis: Slow transit constipation[ICD10: K59.01] Diagnosis: Type 2 diabetes mellitus with hyperglycemia[ICD10: E11.65] Karmen Ash MD, [facility] CPT-4: 16791 01/27/2016 ([id number]) 04130 EST. P ATIENT, LEVEL IV Diagnosis: Essential (primary) hypertension[ICD10: I10] Diagnosis: Type 2 diabetes mellitus with hyperglycemia[ICD10: E11.65] Diagnosis: Vitamin D deficiency, unspecified[ICD10: E55.9] Diagnosis: Chronic obstructive pulmonary disease, unspecified[ICD10: J44.9] Diagnosis: Mixed hyperlipidemia[ICD10: E78.2] Diagnosis: Tobacco use[ICD10: Z72.0] Karmen Ash MD, [facility] CPT- 4: 45720 11/25/2015 ([id number]) 80119 EST. P ATIENT, LEVEL IV Diagnosis: Type 2 diabetes mellitus with hyperglycemia[ICD10: E11.65] Diagnosis: Essential (primary) hypertension[ICD10: I10] Diagnosis: Vitamin D deficiency, unspecified[ICD10: E55.9] Karmen Ash MD, [facility] CPT-4: 39164 07/28/2015 ([id number]) 37134 EST. P ATIENT, LEVEL III Diagnosis: Type 2 diabetes mellitus with hyperglycemia[ICD10: E11.65] Diagnosis: Essential (primary) hypertension[ICD10: I10] Violeta Ash MD, [facility] CPT-4: 81456 05/26/2015 ([id number]) 28788 EST. P ATIENT, LEVEL III Diagnosis: DIABETES TYPE II[ICD9: 250.00] Diagnosis: COPD (chronic obstructive pulmonary disease)[ICD9: 496] Diagnosis: ESSENTIAL HYPERTENSION[ICD9: 401.9] Diagnosis: Cough[ICD9: 786.2] Violeta Ash MD, [facility] CPT-4: 05549 05/06/2015 ([id number]) 21704 EST. P ATIENT, LEVEL III Diagnosis: COPD (chronic obstructive pulmonary disease)[ICD9: 496] Diagnosis: DIABETES TYPE II[ICD9: 250.00] Diagnosis: Muscle ache[ICD9: 729.1] Karmen Ash MD, [facility] CPT- 4: 03323 04/25/2015 ([id number]) 10777 EST. P ATIENT, LEVEL III Diagnosis: ACTINIC KERATOSIS[ICD9: 702.0] Diagnosis: COPD (chronic obstructive pulmonary disease)[ICD9: 496] Diagnosis: DIABETES TYPE II[ICD9: 250.00] Diagnosis: ACUTE URI[ICD9: 465.9] Violeta Ash MD, [facility] CPT-4: 43644 04/12/2015 ([id number]) 73877 EST. P ATIENT, LEVEL III Diagnosis: DIABETES TYPE II[ICD9: 250.00] Violeta Ash MD, [facility] CPT-4: 23725 03/24/2015 ([id number]) 33885 EST. P ATIENT, LEVEL IV Diagnosis: DIABETES TYPE II[ICD9: 250.00] Diagnosis: Hypoglycemia[ICD9: 251.2] Diagnosis: Skin texture changes[ICD9: 782.8] Violeta Ash MD, [facility] CPT-4: 28457 03/07/2015 ([id number]) 62503 EST. P ATIENT, LEVEL IV Diagnosis: COPD (chronic obstructive pulmonary disease)[ICD9: 496] Diagnosis: Fatigue[ICD9: 780.79] Diagnosis: Insulin dependent diabetes mellitus[ICD9: 250.00] Diagnosis: Unsteady gait[ICD9: 781.2] Maame Ash MD, [facility] CPT-4: 20774 02/17/2015 ([id number]) 80650 EST. [facility]: BPPV (benign paroxysmal positional vertigo)[ICD9: 386.11] Diagnosis: Impacted cerumen[ICD9: 380.4] Diagnosis: ESSENTIAL HYPERTENSION[ICD9: 401.9] Diagnosis: Insulin dependent diabetes mellitus[ICD9: 250.00] [facility] CPT-4: 94869 12/23/2014 ([id number]) OFFICE [facility] - LEVEL 4 Diagnosis: Insulin dependent diabetes mellitus[ICD9: 250.00] Diagnosis: BPPV (benign paroxysmal positional vertigo)[ICD9: 386.11] Diagnosis: COPD (chronic obstructive pulmonary disease)[ICD9: 496] Diagnosis: Tobacco abuse[ICD9: 305.1] Diagnosis: Osteoarthritis[ICD9: 715.90] Karmen Ash MD, [facility] CPT- 4: 85980 12/09/2014 Plan of Care Planned Activity Notes C odes Status Date Visit Plan: COPD - chronic problem for this patient. We have reviewed chronic treatment strategy, symptom control, and plans for acute exacerbations. No changes today to the current treatment plan as the patient is stable, monitor for acute changes. group home tobacco use -weight loss-order for chest xray provided DM -rx for CGM -patient is due for labs Low testosterone - check level 03/03/2019 Patient Education: Patient Medication Summary Completed 03/03/2019 Patient Education: Cholesterol Management Completed 03/03/2019 Patient Education: Diabetes Completed 03/03/2019 Care Plan: Comp Metabolic Pending 03/03/2019 Care Plan: Cbc With Differential Pending 03/03/2019 Care Plan: %Hba1C KIKI C : 42723-1 Pending 03/03/2019 Care Plan: Tsh Pending 03/03/2019 [...] as directed 12/02/2018 Appointment: Karmen Espinal WPtel: [address] [place] [address] (30 min) Complex 12/02/2018 Patient Education: Patient Medication Summary Completed 12/02/2018 Patient Education: Diabetes Completed 12/02/2018 Appointment: Injection 11/18/2018 Patient Education: Patient Medication Summary Completed 11/18/2018 Appointment: Injection 11/04/2018 Patient Education: Patient Medication Summary Completed 11/04/2018 Appointment: Karmen Espinal WPtel: [address] [place], [place] [phone] (30 min) Complex 10/21/2018 Visit Plan: Orthostatic [...] walker 10/17/2018 Appointment: Karmen Espinal WPtel: [phone] [phone] (30 min) Complex 10/17/2018 Patient Education: Patient [...] medications. 09/02/2018 [phone] (15 min) Moderate 09/02/2018 Patient Education: [...] care surrogate. 06/30/2018 Appointment: [facility]inal [facility]el[facility] [address] [phone] [facility] [place] - Annual Wellness Visit 06/30/2018 Patient Education: Patient Medication Summary Completed 06/30/2018 Appointment: Injection 06/24/2018 Patient Education: Patient Medication Summary Completed 06/24/2018 Appointment: Injection 06/13/2018 Patient Education: Patient Medication Summary Completed 06/13/2018 Visit Plan: Diabetes Mellitus - I h nnekae recommended for the patient to have follow [...] in pain. 06/06/2018 Appointment: [facility] [phone] [phone] [place] (15 min) Moderate 06/06/2018 Patient Education: [...] months 04/04/2018 Appointment: [phone] [phone] (15 min) Moderate 04/04/2018 Patient Education: Patient Medication Summary Completed 04/04/2018 Care Plan: Cbc With Differential Pending 04/04/2018 Care Plan: Testosterone repeat in 2 months Pending 04/04/2018 Appointment: Karmen Espinal WPtel: [phone] [phone] (15 min) Moderate 03/25/2018 Visit Plan: Low back pain -history of kidney stone-UA negative today -increase fluids and call if pain does not resolve or if any worse. 03/07/2018 Appointment: Karmen Espinal WPtel: [phone] [phone] (15 min) Moderate 03/07/2018 Patient Education: Patient [...] 1 month 02/20/2018 Appointment: Karmen Espinal WPtel: 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 01/30/2018 Appointment: Karmen Espinal WPtel: [address] [place] [address] (15 min) Moderate 01/30/2018 Patient Education: Patient Medication Summary Completed 01/30/2018 Appointment: Karmen Espinal WPtel: [address] [place] [address] (15 min) Moderate 01/28/2018 Appointment: Injection 01/17/2018 Patient Education: Patient Medication Summary Completed 01/17/2018 Visit Plan: Cellulitis - start oral antibiotics as directed, return to clinic as previously directed, call for acute change in symptoms, worsening redness, warmth, discharge. 01/14/2018 Appointment: Karmen Espinal WPtel: [facility] [address] (10 min) Simple 01/14/2018 Patient Education: [...] less controlled. 01/13/2018 Appointment: Karmen Espinal WPtel: [phone] (15 min) Moderate 01/13/2018 Patient Education: Patient Medication Summary Completed 01/13/2018 Referral: Hugo Villatoro HPtel:[phone] [place] [address] Patient's informed. Referral info ned monroy. Completed [...] change in blood pressure readings at home. Ynqigbvj-zctcex-wjojh to see Dr Villatoro Constipation-start linzess daily 11/19/2017 Appointment: [facility]el[phone] [phone] (30 min) Complex 11/19/2017 Patient Education: Patient Medication Summary Completed 11/19/2017 Care Plan: Referral Order bloating, nausea SNOMED-CT : 282171823 Pending 11/19/2017 Visit Plan: Low back pain- [...] acute changes. 10/02/2017 Appointment: Brunilda Maravilla WPtel: [address] [place] [phone] (15 min) Moderate 10/02/2017 Patient Education: Patient [...] less controlled. 07/23/2017 Appointment: [facility] Espinal [facility]Ptel[facility] [address] [phone] (30 min) Complex 07/23/2017 Patient Education: [...] pack/year history 04/25/2017 Appointment: Karmen Espinal WPtel: [phone] (30 min) Complex 04/25/2017 Patient Education: [...] readings are starting to become less controlled. Pyvwyk-zxapmyp-ppsre labs 02/19/2017 Appointment: Karm[facility] Espinal WPtel[facility] [phone] [phone] (30 min) Complex 02/19/2017 Patient Education: [...] 1 month 01/21/2017 Appointment: [facility]inal [facility]Ptel[facility] [phone] [phone] (30 min) Complex 01/21/2017 Patient Education: Patient Medication Summary Completed 01/21/2017 Patient Education: Smoking and Tobacco Addiction Completed 01/21/2017 Patient Education: Hypertension Completed 01/21/2017 Care Plan: Referral Order SNOMED-CT : 702018421 Pending 01/21/2017 Visit Plan: Diabetes Mellitus - [...] acute changes. 12/20/2016 Appointment: Karmen Espinal WPtel: [phone] (30 min) Complex 12/20/2016 Patient Education: Patient Medication Summary Completed 12/20/2016 Patient Education: Smoking and Tobacco Addiction Completed 12/20/2016 Patient Education: Hypertension Completed 12/20/2016 Appointment: [facility] Espinal [facility]Ptel[facility] [phone] [phone] (30 min) Complex 09/06/2016 Visit Plan: [...] d level 08/23/2016 Appointment: Karmen Espinal WPtel: [phone] (30 min) Complex 08/23/2016 Patient Education: Patient [...] acute changes. 05/22/2016 Appointment: Karmen Espinal WPtel: [phone] (30 min) Complex 05/22/2016 Patient Education: Patient Medication Summary Completed 05/22/2016 Patient Education: Smoking and Tobacco Addiction Completed 05/22/2016 Care Plan: Cbc With Differential Ordered 05/22/2016 Care Plan: %Hba1C LOIN C : 18587-0 Ordered 05/22/2016 Care Plan: Tsh Ordered 05/22/2016 [...] update 02/24/2016 Appointment: Karmen Espinal WPtel: [phone] [phone] (30 min) Complex 02/24/2016 Patient Education: Patient [...] regimen. 01/27/2016 Appointment: Karmen Espinal WPtel: [phone] [phone] (30 min) Complex 01/27/2016 Patient Education: Patient [...] use medication to assist cessation. 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 Odobanig-utdsbcdg-YZSW SIMVASTATIN X 2 WEEKS AND CALL WITH [...] Care Plan: COMPLETE CBC AUTOMATED LOINC : 21046-3 Ordered 03/24/2015 Visit Plan: Diabetes Mellitus - [...] for removal. 03/07/2015 Appointment: Violeta Ash WPtel: [address] [place], [place] [phone] (15 min) Moderate 03/07/2015 Patient Education: Patient [...] hearing. The wax was removed by the [facility] due to the wax being more [...] Care Plan: COMPLETE CBC AUTOMATED LOINC : 53299-4 Ordered 12/23/2014 Visit Plan: BPPV - Benign [...] appt 12/09/2014 Appointment: [facility] Espinal [facility]Ptel[facility] [phone] [phone] [place] ([place] New Patient 12/09/2014 Patient Education: Patient Medication Summary Completed 12/09/2014 Patient Education: .Amazing charts Parox ysmal positional vertigo Completed 12/09/2014 Patient Education: Smoking and Tobacco Addiction Completed 12/09/2014 Referral: Hugo Villatoro HPtel:[phone] [facility] Referral Appointment Requested Referral: Luis Donohue Referral [...] Diabetes Mellitus - controlled - per r [facility] FSBS reports. I have recommended for the [...] readings are starting to become less controlled. Jprwjf-dfhchpn-oyjli labs . Cellulitis - start oral antibiotics [...] change in blood pressure readings at home. Czpqbwms-fkepze-btlto to see Dr Villatoro Constipation-start linzess daily [...] POTENTIAL SIDE EFFECTS AND WORSENING OF SYMPTOMS. Fkmuiywz-dsqlhpwc-CLFB SIMVASTATIN X 2 WEEKS AND CALL WITH [...]
--- OUTSIDE RECORDS SUMMARY | 2020-03-29 07:50 | XMS REPORT | CCD ---
Author Author Dick Espinal Organization Violeta Ash MD, [facility] Address [address] [place] [address] Phone Care Team Providers Care Prosthetic Aide Name Role Phone PP Unavailable CCM Unavailable Summary Purpose Interface Exchange Insurance Providers Payer name Policy type / Coverage type Covered alliance party ID Effective Begin Date Effective End Date WPS Medicare Part B Medicare Part B [id number] Unknown Unknown [employer] Medicar e Part B [id number] Unknown Unkn own Family history Father Diagnosis Age At Onset Cancer Unknown Mother Diagnosis Age At Onset Cancer Unknown Social History Social History Element Codes Description Effective Dates Marital status Unknown M arried 12/09/2014 Employment Unknown Retir ed 12/09/[address]: 87625774 Currently smokes tobacco 12/09/2014 Number of years using tobacco Unknown > 50 12/09/2014 Number of cigarettes/day Unknown 30 (Pack and a half) 12/09/[address]: 285332905 Never drinks alcohol 12/09/2014 Allergies, Adverse Reactions, [...] ICD-9: 257.9 ICD-10: E29.9 Active 01/17/2018 Unknown Chronic obstructive pulmonary disease, unspecified ICD-9: 496 ICD-10: J44.9 Active 05/21/2016 Unknown Essential (primary) hypertension ICD-9: 401.9 ICD-10: I10 Active 08/22/2016 Unknown Other insomnia ICD-9: 327.09 ICD-10: G47.09 Active 12/02/2018 Unknown Type 2 diabetes kadi itus with hyperglycemia ICD-9: 250.02 ICD-10: E11.65 Active 02/20/2018 Unknown Low back pain ICD-9: 724.2 ICD-10: M54.5 Active 10/02/2017 Unknown Orthostatic hypotension ICD-9: 458.0 ICD-10: I95.1 Active 10/17/2018 Unknown Unsteadiness on feet ICD-9: 781.2 ICD-10: R26.81 Active 10/17/2018 Unknown Mixed hyperlipidemia ICD-9: 272.2 ICD-10: E78.2 Active 08/22/2016 Unknown Vitamin D deficiency , unspecified ICD-9: 268.9 ICD-10: E55.9 Active 08/22/2016 Unknown Encounter for genera l adult medical examination with abnormal findings ICD-9: V70.0 ICD-10: Z00.01 Active 06/30/2018 Unknown Cellulitis of face ICD- 9: 682.0 ICD-10: L03.211 Active 06/06/2018 Unknown Encounter for immuni zation ICD-9: V04.81 ICD-10: Z23 Active 05/21/2016 Unknown Type 2 diabetes kadi itus without complications ICD-9: 250.00 ICD-10: E11.9 Active 02/20/2018 Unknown Abnormal weight loss ICD-9: 783.21 ICD-10: R63.4 Active 02/20/2018 Unknown Dysuria ICD-9: 788.1 ICD-10: [...] unspecified ICD-9: 257.9 ICD-10: E29.9 01/17/2018 Active Chronic obstructive pulmonary disease, unspecified ICD-9: 496 ICD-10: J44.9 05/21/2016 Active Essential (primary) hypertension ICD-9: 401.9 ICD-10: I10 08/22/2016 Active Other insomnia ICD-9: 327.09 ICD-10: G47.09 12/02/2018 Active Type 2 diabetes kadi itus with hyperglycemia ICD-9: 250.02 ICD-10: E11.65 02/20/2018 Active Low back pain ICD-9: 724.2 ICD-10: M54.5 10/02/2017 Active Orthostatic hypotension ICD-9: 458.0 ICD-10: I95.1 10/17/2018 Active Unsteadiness on feet ICD-9: 781.2 ICD-10: R26.81 10/17/2018 Active Mixed hyperlipidemia ICD-9: 272.2 ICD-10: E78.2 08/22/2016 Active Vitamin D deficiency , unspecified ICD-9: 268.9 ICD-10: E55.9 08/22/2016 Active Encounter for genera l adult medical examination with abnormal findings ICD-9: V70.0 ICD-10: Z00.01 06/30/2018 Active Cellulitis of face ICD- 9: 682.0 ICD-10: L03.211 06/06/2018 Active Encounter for immuni zation ICD-9: V04.81 ICD-10: Z23 05/21/2016 Active Type 2 diabetes kadi itus without complications ICD-9: 250.00 ICD-10: E11.9 02/20/2018 Active Abnormal weight loss ICD-9: 783.21 ICD-10: R63.4 02/20/2018 Active Dysuria ICD-9: 788.1 ICD-10: R30.0 [...] 5 mg-linh taminophen 325 mg tablet RxNorm: 974595 1 Tablet(s) PO Q6-8H as needed 02/16/2019 03/12/2019 Active testosterone cypiona te 200 mg/mL intramuscular oil RxNorm: 1946948 Milliliter(s) IM 02/16/2019 02/16/2019 In active Protonix 40 mg table t,delayed release RxNorm: 128056 TAKE 1 TABLET BY MOUT H DAILY 02/02/2019 01/27/2020 Ac tive - Ref: [id number] simvastatin 40 mg ta blet RxNorm: 414701 TAKE 1 TABLET BY MOUT H DAILY AT BEDTIME 02/02/2019 01/27/2020 Ac tive - Ref: [id number] testosterone cypiona te 200 mg/mL intramuscular oil RxNorm: 7382983 Milliliter(s) IM 01/30/2019 01/30/2019 In active testosterone cypiona te 200 mg/mL intramuscular oil RxNorm: 4902891 1/2 Milliliter(s) IM [id number] 01/16/2019 05/15/2019 Active testosterone cypiona te 200 mg/mL intramuscular oil RxNorm: 6156853 Milliliter(s) IM 01/16/2019 01/16/2019 In active hydrocodone 5 mg-linh taminophen 325 mg tablet RxNorm: 050514 1 Tablet(s) PO Q6-8H as needed 01/14/2019 02/07/2019 Inactive testosterone cypiona te 200 mg/mL intramuscular oil RxNorm: 0308748 Milliliter(s) IM 01/01/2019 01/01/2019 In active Xanax 0.5 mg tablet RxNorm: 642219 1 Tablet(s) PO TID 12/18/2018 02/15/2019 Inactive testosterone cypiona te 200 mg/mL intramuscular oil RxNorm: 2327477 Milliliter(s) IM 12/17/2018 12/17/2018 In active hydrocodone 5 mg-linh taminophen 325 mg tablet RxNorm: 936853 1 Tablet(s) PO Q6-8H as needed 12/15/2018 01/08/2019 Inactive testosterone cypiona te 200 mg/mL intramuscular oil RxNorm: 2150638 Milliliter(s) IM 12/02/2018 12/02/2018 In active testosterone cypiona te 200 mg/mL intramuscular oil RxNorm: 9761448 Milliliter(s) IM 11/18/2018 11/18/2018 In active hydrocodone 5 mg-linh taminophen 325 mg tablet RxNorm: 279507 1 Tablet(s) PO Q6-8H as needed 11/13/2018 12/07/2018 Inactive testosterone cypiona te 200 mg/mL intramuscular oil RxNorm: 3472770 1/2 Milliliter(s) IM [id number] 11/04/2018 01/15/2019 Inactive testosterone cypiona te 200 mg/mL intramuscular oil RxNorm: 5518447 Milliliter(s) IM 11/04/2018 11/04/2018 In active nicotine 21 mg/24 hr daily transdermal patch RxNorm: 130618 1 TD daily 10/31/2018 10/30/2018 In active nicotine 21 mg/24 hr daily transdermal patch RxNorm: 328964 1 TD daily 10/31/2018 11/29/2018 In active meclizine 25 mg tablet RxNorm: 076667 1 Tablet(s) PO Q6 PRN TAKE ONE TABLET BY MOUTH EVERY 6 HOURS NEEDED 10/17/2018 01/14/2019 Inactive hydrocodone 5 mg-linh taminophen 325 mg tablet RxNorm: 460198 1 Tablet(s) PO Q6-8H as needed 10/17/2018 11/10/2018 Inactive metformin 500 mg tablet RxNorm: 914888 Tablet(s) TAKE 1 TABLET BY MOUTH DAILY 10/15/2018 10/09/2019 Ac tive lisinopril 10 mg tablet RxNorm: 622145 TAKE 1 TABLET BY MOUTH TWO TIMES DAILY 10/15/2018 10/09/2019 Ac tive - First Attempt Ref: [id number] testosterone cypiona te 200 mg/mL intramuscular oil RxNorm: 8252699 Milliliter(s) IM 10/14/2018 10/14/2018 In active Xanax 0.5 mg tablet RxNorm: 774944 1 Tablet(s) PO TID 10/03/2018 11/30/2018 Inactive testosterone cypiona te 200 mg/mL intramuscular oil RxNorm: 9139632 1/2 Milliliter(s) IM weekly 10/03/2018 11/03/2018 Inactive testosterone cypiona te 200 mg/mL intramuscular oil RxNorm: 2406106 Milliliter(s) IM 10/03/2018 10/03/2018 In active testosterone cypiona te 200 mg/mL intramuscular oil RxNorm: 7392845 Milliliter(s) IM 09/23/2018 09/23/2018 In active hydrocodone 5 mg-linh taminophen 325 mg tablet RxNorm: 108887 1 Tablet(s) PO Q6-8H as needed 09/22/2018 10/16/2018 Inactive testosterone cypiona te 200 mg/mL intramuscular oil RxNorm: 8167115 1/2 Milliliter(s) IM 09/02/2018 09/02/2018 Inactive testosterone enantha te 200 mg/mL intramuscular oil RxNorm: 746518 Milliliter(s) IM 08/21/2018 08/21/2018 In active hydrocodone 5 mg-linh taminophen 325 mg tablet RxNorm: 364544 1 Tablet(s) PO Q6-8H as needed 08/21/2018 09/14/2018 Inactive testosterone cypiona te 200 mg/mL intramuscular oil RxNorm: 1597981 Milliliter(s) IM 08/08/2018 08/08/2018 In active testosterone cypiona te 200 mg/mL intramuscular oil RxNorm: 3473049 1/2 Milliliter(s) IM 07/28/2018 07/28/2018 Inactive hydrocodone 5 mg-linh taminophen 325 mg tablet RxNorm: 464352 1 Tablet(s) PO Q6-8H as needed 07/21/2018 08/14/2018 Inactive testosterone cypiona te 200 mg/mL intramuscular oil RxNorm: 593551 Milliliter(s) IM 07/16/2018 07/16/2018 In active testosterone cypiona te 200 mg/mL intramuscular oil RxNorm: 033393 Milliliter(s) IM 07/02/2018 07/02/2018 In active Xanax 0.5 mg tablet RxNorm: 533424 1 Tablet(s) PO TID 06/27/2018 08/24/2018 Inactive testosterone cypiona te 200 mg/mL intramuscular oil RxNorm: 250171 Milliliter(s) IM 06/24/2018 06/24/2018 In active hydrocodone 5 mg-linh taminophen 325 mg tablet RxNorm: 908622 1 Tablet(s) PO Q6-8H as needed 06/23/2018 07/17/2018 Inactive testosterone cypiona te 200 mg/mL intramuscular oil RxNorm: 845207 Milliliter(s) IM 06/13/2018 06/13/2018 In active testosterone cypiona te 200 mg/mL intramuscular oil RxNorm: 230073 Milliliter(s) IM 06/05/2018 06/05/2018 In active testosterone cypiona te 200 mg/mL intramuscular oil RxNorm: 5666269 1/2 Milliliter(s) IM weekly 05/30/2018 09/26/2018 Inactive testosterone cypiona te 200 mg/mL intramuscular oil RxNorm: 975270 Milliliter(s) IM 05/30/2018 05/30/2018 In active testosterone cypiona te 200 mg/mL intramuscular oil RxNorm: 889560 Milliliter(s) IM 05/22/2018 05/22/2018 In active hydrocodone 5 mg-linh taminophen 325 mg tablet RxNorm: 377445 1 Tablet(s) PO Q6-8H as needed 05/20/2018 06/13/2018 Inactive testosterone cypiona te 200 mg/mL intramuscular oil RxNorm: 109689 1/2 Milliliter(s) IM 05/12/2018 05/12/2018 Inactive testosterone cypiona te 200 mg/mL intramuscular oil RxNorm: 764714 Milliliter(s) IM 05/02/2018 05/02/2018 In active testosterone cypiona te 200 mg/mL intramuscular oil RxNorm: 515254 1/2 Milliliter(s) IM weekly 04/24/2018 05/29/2018 Inactive testosterone cypiona te 200 mg/mL intramuscular oil RxNorm: 208729 0.5 Milliliter(s) IM 04/24/2018 04/24/2018 Inactive hydrocodone 5 mg-linh taminophen 325 mg tablet RxNorm: 516944 1 Tablet(s) PO Q6-8H as needed 04/22/2018 05/16/2018 Inactive testosterone cypiona te 200 mg/mL intramuscular oil RxNorm: 572231 1/2 Milliliter(s) IM 04/17/2018 04/17/2018 Inactive testosterone cypiona te 200 mg/mL intramuscular oil RxNorm: 849268 1/2 Milliliter(s) IM weekly 04/16/2018 04/23/2018 Inactive Jardiance 10 mg tablet RxNorm: 9610326 1 Tablet(s) PO daily 04/04/2018 12/29/2018 Inactive testosterone cypiona te 200 mg/mL intramuscular oil RxNorm: 559660 1 Milliliter(s) IM monthly 04/04/2018 04/15/2018 Inactive Protonix 40 mg table t,delayed release RxNorm: 386019 1 Tablet(s) PO daily TAKE 1 TABLET BY MOUTH DAILY 04/04/2018 02/01/2019 Inactive - Ref: [id number] hydrocodone 5 mg-linh taminophen 325 mg tablet RxNorm: 064731 1 Tablet(s) PO Q6-8H as needed 03/19/2018 04/12/2018 Inactive Flomax 0.4 mg capsule RxNorm: 865626 1 Capsule(s) PO daily 03/10/2018 03/04/2019 Active Urecholine 25 mg tablet RxNorm: 263786 1 Tablet(s) PO BID 03/10/2018 07/07/2018 Inactive ketorolac 60 mg/2 mL intramuscular solution RxNorm: 2056293 Milliliter(s) IM 03/07/2018 03/07/2018 In active metformin 500 mg tablet RxNorm: 275514 Tablet(s) TAKE 1 TABLET BY MOUTH DAILY 02/20/2018 02/13/2019 In active 1 q am and 1/2 tab q pm hydrocodone 5 mg-linh taminophen 325 mg tablet RxNorm: 147519 1 Tablet(s) PO Q6-8H as needed 02/20/2018 03/16/2018 Inactive Kenalog 40 mg/mL bartolome pension for injection RxNorm: 9411281 1.5 Milliliter(s) In j 01/30/2018 01/30/2018 In active hydrocodone 5 mg-linh taminophen 325 mg tablet RxNorm: 602552 1 Tablet(s) PO Q6-8H as needed 01/23/2018 02/16/2018 Inactive Urecholine 25 mg tablet RxNorm: 689313 1 Tablet(s) PO BID 01/22/2018 03/09/2018 Inactive Flomax 0.4 mg capsule RxNorm: 678312 1 Capsule(s) PO daily 01/22/2018 03/09/2018 Inactive Flomax 0.4 mg capsule RxNorm: 812428 1 Capsule(s) PO daily 01/22/2018 01/21/2018 Inactive Urecholine 25 mg tablet RxNorm: 220280 1 Tablet(s) PO BID 01/22/2018 01/21/2018 Inactive testosterone cypiona te 200 mg/mL intramuscular oil RxNorm: 490863 Milliliter(s) IM 01/17/2018 01/17/2018 In active testosterone cypiona te 200 mg/mL intramuscular oil RxNorm: 639134 1 Milliliter(s) IM monthly 01/17/2018 04/03/2018 Inactive doxycycline hyclate 100 mg tablet RxNorm: 195667 1 Tablet(s) PO BID 01/14/2018 01/23/2018 Inactive lisinopril 10 mg tablet RxNorm: 766338 TAKE 1 TABLET BY MOUTH TWO TIMES DAILY 01/14/2018 10/14/2018 In active - First Attempt Ref: [id number] nystatin 100,000 uni t/mL oral suspension RxNorm: 495800 4 Milliliter(s) PO QI D Swish and swallow 01/08/2018 01/07/2018 Inactive nystatin 100,000 uni t/mL oral suspension RxNorm: 400891 4 Milliliter(s) PO QI D Swish and swallow 01/08/2018 01/12/2018 Inactive Xanax 0.5 mg tablet RxNorm: 784886 1 Tablet(s) PO TID 01/08/2018 12/23/2018 Inactive simvastatin 40 mg ta blet RxNorm: 887327 TAKE 1 TABLET BY MOUT H DAILY AT BEDTIME 12/30/2017 12/24/2018 In active - First Attempt Ref: [id number] metformin 500 mg tablet RxNorm: 059348 TAKE 1 TABLET BY MOUTH DAILY 12/30/2017 02/19/2018 Inactive - First Attempt Ref: [id number] hydrocodone 5 mg-linh taminophen 325 mg tablet RxNorm: 729175 1 Tablet(s) PO Q6-8H as needed 12/25/2017 01/18/2018 Inactive Protonix 40 mg table t,delayed release RxNorm: 403522 Tablet(s) TAKE 1 TABL ET BY MOUTH DAILY 11/20/2017 04/03/2018 Inactive - Ref: [id number] Linzess 72 mcg capsule RxNorm: 0488854 1 Capsule(s) PO daily 11/19/2017 No Stop Date Active hydrocodone 5 mg-linh taminophen 325 mg tablet RxNorm: 290812 1 Tablet(s) PO Q6-8H as needed 11/19/2017 12/13/2017 Inactive hydrocodone 5 mg-linh taminophen 325 mg tablet RxNorm: 320409 1 Tablet(s) PO Q6-8H as needed 10/28/2017 11/18/2017 Inactive Xanax 0.5 mg tablet RxNorm: 318788 1 Tablet(s) PO TID 10/25/2017 12/22/2017 Inactive Xanax 0.5 mg tablet RxNorm: 914076 TAKE ONE TABLET BY MOUTH THREE TIMES A D AY 10/24/2017 12/01/2018 In active hydrocodone 5 mg-linh taminophen 325 mg tablet RxNorm: 222063 1 Tablet(s) PO Q6-8H as needed 09/30/2017 10/24/2017 Inactive Protonix 40 mg table t,delayed release RxNorm: 991222 TAKE 1 TABLET BY MOUT H DAILY 09/16/2017 11/19/2017 In active - Ref: [id number] Yovana Perkins 300 unit/mL (1.5 mL) subcutaneous insulin pen RxNorm: 3595617 35 Unit(s) SQ QHS 08/30/2017 No Stop Date Active dosage increase hydrocodone 5 mg-linh taminophen 325 mg tablet RxNorm: 436801 1 Tablet(s) PO Q6-8H as needed 08/28/2017 09/29/2017 Inactive hydrocodone 5 mg-linh taminophen 325 mg tablet RxNorm: 459766 1 Tablet(s) PO Q6-8H as needed 07/23/2017 08/24/2017 Inactive lisinopril 10 mg tablet RxNorm: 120673 1 Tablet(s) PO BID Take 1 tablet by mout h daily 07/23/2017 01/13/2018 Inactive hydrocodone 5 mg-linh taminophen 325 mg tablet RxNorm: 030126 1 Tablet(s) PO Q6-8H as needed 06/27/2017 07/22/2017 Inactive Xanax 0.5 mg tablet RxNorm: 013437 1 Tablet(s) PO TID 06/18/2017 10/25/2017 Inactive hydrocodone 5 mg-linh taminophen 325 mg tablet RxNorm: 809450 1 Tablet(s) PO Q6-8H as needed 05/27/2017 06/26/2017 Inactive Levaquin 500 mg tablet RxNorm: 714915 1 Tablet(s) PO daily 05/24/2017 05/23/2017 Inactive Levaquin 500 mg tablet RxNorm: 483267 1 Tablet(s) PO daily 05/24/2017 05/30/2017 Inactive Protonix 40 mg table t,delayed release RxNorm: 433290 Take 1 tablet by mout h daily 04/29/2017 09/15/2017 In active - Ref: [id number] hydrocodone 5 mg-linh taminophen 325 mg tablet RxNorm: 443957 1 Tablet(s) PO Q6-8H as needed 04/25/2017 05/26/2017 Inactive metformin 500 mg tablet RxNorm: 273549 Take 1 tablet by mouth daily 04/08/2017 12/29/2017 Inactive - First Attempt Ref: [id number] hydrocodone 5 mg-linh taminophen 325 mg tablet RxNorm: 200579 1 Tablet(s) PO Q6-8H as needed 03/27/2017 04/24/2017 Inactive hydrocodone 5 mg-linh taminophen 325 mg tablet RxNorm: 622092 1 Tablet(s) PO Q6-8H as needed 02/25/2017 03/26/2017 Inactive Protonix 40 mg table t,delayed release RxNorm: 634098 Tablet(s) Take 1 tabl et by mouth BID 02/25/2017 04/28/2017 Inactive Protonix 40 mg table t,delayed release RxNorm: 672929 Tablet(s) Take 1 tabl et by mouth BID 02/19/2017 02/18/2017 Inactive Protonix 40 mg table t,delayed release RxNorm: 854439 Tablet(s) Take 1 tabl et by mouth BID 02/19/2017 02/24/2017 Inactive lisinopril 10 mg tablet RxNorm: 481431 Take 1 tablet by mouth daily 01/29/2017 07/22/2017 Inactive - First Attempt Ref: [id number] hydrocodone 5 mg-linh taminophen 325 mg tablet RxNorm: 186532 1 Tablet(s) PO Q6-8H as needed 01/25/2017 02/24/2017 Inactive simvastatin 40 mg ta blet RxNorm: 381731 Tablet(s) Take 1 tabl et by mouth daily at bedtime 01/03/2017 12/28/2017 Inactive lisinopril 10 mg tablet RxNorm: 105360 Tablet(s) Take 1 tablet by mouth daily 01/03/2017 01/28/2017 In active Protonix 40 mg table t,delayed release RxNorm: 397704 Tablet(s) Take 1 tabl et by mouth daily 12/28/2016 02/18/2017 Inactive hydrocodone 5 mg-linh taminophen 325 mg tablet RxNorm: 121224 1 Tablet(s) PO Q6-8H as needed 12/26/2016 01/24/2017 Inactive Xanax 0.5 mg tablet RxNorm: 137077 1 Tablet(s) PO TID 12/12/2016 03/11/2017 Inactive simvastatin 40 mg ta blet RxNorm: 523259 Tablet(s) Take 1 tabl et by mouth daily at bedtime 11/30/2016 01/02/2017 Inactive simvastatin 40 mg ta blet RxNorm: 563868 Take 1 tablet by mout h daily at bedtime 11/29/2016 11/29/2016 In active - First Attempt Ref: [id number] Protonix 40 mg table t,delayed release RxNorm: 479506 Take 1 tablet by mout h daily 11/27/2016 12/27/2016 In active - First Attempt Ref: [id number] hydrocodone 5 mg-lihn taminophen 325 mg tablet RxNorm: 997999 1 Tablet(s) PO Q6-8H as needed 11/26/2016 12/25/2016 Inactive hydrocodone 5 mg-linh taminophen 325 mg tablet RxNorm: 128478 1 Tablet(s) PO Q8 as needed 10/24/2016 11/25/2016 Inactive Xanax 0.5 mg tablet RxNorm: 451053 1 Tablet(s) PO TID 10/09/2016 12/25/2016 Inactive hydrocodone 5 mg-linh taminophen 325 mg tablet RxNorm: 675470 1 Tablet(s) PO Q8 as needed 09/27/2016 10/23/2016 Inactive lisinopril 10 mg tablet RxNorm: 051450 Take 1 tablet by mouth daily 09/25/2016 01/02/2017 Inactive - First Attempt Ref: [id number] Vitamin D2 50,000 un it capsule RxNorm: 966863 1 Capsule(s) PO QW 09/06/2016 12/01/2018 Inactive hydrocodone 5 mg-linh taminophen 325 mg tablet RxNorm: 626253 1 Tablet(s) PO Q8 as needed 08/28/2016 09/26/2016 Inactive Toujeo SoloStar 300 unit/mL (1.5 mL) subcutaneous insulin pen RxNorm: 3303227 25 Unit(s) SQ QHS 08/23/2016 08/29/2017 Inactive dosage increase hydrocodone 5 mg-linh taminophen 325 mg tablet RxNorm: 302254 1 Tablet(s) PO Q8 as needed 07/26/2016 08/27/2016 Inactive Protonix 40 mg table t,delayed release RxNorm: 826937 Take 1 tablet by mout h daily 07/24/2016 11/26/2016 In active - First Attempt Ref: [id number] hydrocodone 5 mg-linh taminophen 325 mg tablet RxNorm: 605302 1 Tablet(s) PO Q8 as needed 06/19/2016 07/21/2016 Inactive Toujeo SoloStar 300 unit/mL (1.5 mL) subcutaneous insulin pen RxNorm: 2882761 32 Unit(s) SQ QHS 05/30/2016 08/22/2016 Inactive dosage increase hydrocodone 5 mg-linh taminophen 325 mg tablet RxNorm: 047171 1 Tablet(s) PO Q8 as needed 05/22/2016 06/18/2016 Inactive hydrocodone 5 mg-linh taminophen 325 mg tablet RxNorm: 616335 1 Tablet(s) PO Q8 as needed 04/18/2016 05/17/2016 Inactive Protonix 40 mg table t,delayed release RxNorm: 868518 Take 1 tablet by mout h daily 04/05/2016 07/03/2016 In active - Ref: [id number] metformin 500 mg tablet RxNorm: 162082 Take 1 tablet by mouth daily 04/04/2016 07/02/2016 Inactive - Ref: [id number] Xanax 0.5 mg tablet RxNorm: 271486 1 Tablet(s) PO TID 03/30/2016 09/25/2016 Inactive Xanax 0.5 mg tablet RxNorm: 371179 1 Tablet(s) PO TID 03/23/2016 12/25/2016 Inactive hydrocodone 5 mg-linh taminophen 325 mg tablet RxNorm: 281516 1 Tablet(s) PO Q8 as needed 03/06/2016 04/04/2016 Inactive Cipro 500 mg tablet RxNorm: 334862 1 Tablet(s) PO BID 02/24/2016 03/04/2016 Inactive Miralax 17 gram oral powder packet RxNorm: 890212 1 packet PO every oth er day 01/27/2016 No Stop Date Active hydrocodone 5 mg-linh taminophen 325 mg tablet RxNorm: 261797 1 Tablet(s) PO Q8 as needed 01/27/2016 02/25/2016 Inactive lisinopril 10 mg tablet RxNorm: 730968 1 Tablet(s) PO daily 01/12/2016 09/24/2016 Inactive simvastatin 40 mg ta blet RxNorm: 141474 1 Tablet(s) PO QHS 01/12/2016 11/28/2016 Inactive simvastatin 40 mg ta blet RxNorm: 163105 1 Tablet(s) PO QHS 01/11/2016 01/11/2016 Inactive lisinopril 10 mg tablet RxNorm: 848960 1 Tablet(s) PO daily 01/06/2016 01/11/2016 Inactive simvastatin 40 mg ta blet RxNorm: 771759 1 Tablet(s) PO daily 12/28/2015 01/10/2016 Inactive hydrocodone 5 mg-linh taminophen 325 mg tablet RxNorm: 770779 1 Tablet(s) PO Q8 as needed 12/27/2015 01/26/2016 Inactive Xanax 0.5 mg tablet RxNorm: 510076 1 Tablet(s) PO TID 11/30/2015 03/29/2016 Inactive Toujeo SoloStar 300 unit/mL (1.5 mL) subcutaneous insulin pen RxNorm: 5071357 30 Unit(s) SQ QHS 11/25/2015 05/29/2016 Inactive dosage increase meclizine 25 mg tablet RxNorm: 561895 1 Tablet(s) PO Q6 PRN TAKE ONE TABLET BY MOUTH EVERY 6 HOURS NEEDED 11/25/2015 02/22/2016 Inactive omeprazole 20 mg cap jacquelyn,delayed release RxNorm: 036910 1 Capsule(s) PO daily 10/06/2015 01/26/2016 In active Toujeo SoloStar 300 unit/mL (1.5 mL) subcutaneous insulin pen RxNorm: 4349171 35 Unit(s) SQ QHS 08/02/2015 11/24/2015 Inactive dosage increase Vitamin D2 50,000 un it capsule RxNorm: 198142 1 Capsule(s) PO QW 08/02/2015 09/05/2016 Inactive hydrocodone 5 mg-linh taminophen 325 mg tablet RxNorm: 892622 1 Tablet(s) PO Q8 as needed 07/11/2015 12/26/2015 Inactive Xanax 0.5 mg tablet RxNorm: 106506 1 Tablet(s) PO TID 06/30/2015 06/29/2015 Inactive Xanax 0.5 mg tablet RxNorm: 626292 1 Tablet(s) PO TID 06/30/2015 12/25/2015 Inactive hydrocodone 5 mg-linh taminophen 325 mg tablet RxNorm: 434254 1 Tablet(s) PO Q8 as needed 05/06/2015 07/10/2015 Inactive Symbicort 160 mcg-4. 5 mcg/actuation HFA aerosol inhaler RxNorm: 1644422 INH 04/25/2015 No Stop Date Active Levemir FlexTouch 10 0 unit/mL (3 mL) subcutaneous insulin pen RxNorm: 112760 30 Unit(s) SQ QHS 04/25/2015 11/24/2015 Inactive prednisone 20 mg tablet RxNorm: 244197 1 Tablet(s) PO BID 04/25/2015 04/29/2015 Inactive metformin 500 mg tablet RxNorm: 632144 1 Tablet(s) PO daily 04/25/2015 04/03/2016 Inactive amoxicillin 500 mg c apsule RxNorm: 659663 1 Capsule(s) PO TID 04/14/2015 04/13/2015 Inactive amoxicillin 500 mg c apsule RxNorm: 062682 1 Capsule(s) PO TID a nd recommend probiotic tid (otc) 04/14/2015 04/20/2015 Inactive Kenalog 40 mg/mL bartolome pension for injection RxNorm: 2053235 Milliliter(s) Inj 04/12/2015 04/12/2015 In active hydrocodone 5 mg-linh taminophen 325 mg tablet RxNorm: 734748 1 Tablet(s) PO Q8 as needed 03/30/2015 05/05/2015 Inactive Lantus 100 unit/mL s ubcutaneous solution RxNorm: 282671 25 Unit(s) SQ QPM 03/24/2015 04/25/2015 In active meclizine 25 mg tablet RxNorm: 140572 Tablet(s) TAKE ONE TABLET BY MOUTH EVERY 6 HOURS NEEDED 03/08/2015 04/06/2015 Inactive meclizine 25 mg tablet RxNorm: 235760 TAKE ONE TABLET BY MOUTH EVERY 6 HOURS A S NEEDED 02/25/2015 03/03/2015 Inactive Lantus 100 unit/mL s ubcutaneous solution RxNorm: 431422 20 Unit(s) SQ QPM 02/23/2015 03/23/2015 In active Lantus 100 unit/mL s ubcutaneous solution RxNorm: 819096 25 Unit(s) SQ QPM 02/23/2015 02/22/2015 In active hydrocodone 5 mg-linh taminophen 325 mg tablet RxNorm: 736266 1 Tablet(s) PO Q8 as needed 02/17/2015 03/29/2015 Inactive Xanax 0.5 mg tablet RxNorm: 267764 1 Tablet(s) PO TID 02/03/2015 06/29/2015 Inactive Lantus 100 unit/mL s ubcutaneous solution RxNorm: 603018 20 Unit(s) SQ QPM 12/29/2014 02/22/2015 In active Phenergan 12.5 mg re ctal suppository RxNorm: 586437 1 Suppository RTL Q6 PRN 12/23/2014 No Stop Date Active nausea Kenalog 40 mg/mL bartolome pension for injection RxNorm: 8312083 Milliliter(s) Inj 12/23/2014 12/23/2014 In active prednisone 20 mg tablet RxNorm: 367567 2 Tablet(s) PO daily 12/13/2014 12/17/2014 Inactive prednisone 20 mg tablet RxNorm: 669415 2 Tablet(s) PO daily 12/13/2014 12/12/2014 Inactive meclizine 25 mg tablet RxNorm: 643016 1 Tablet(s) PO Q6 PRN 12/09/2014 02/24/2015 Inactive hydrocodone 5 mg-linh taminophen 325 mg tablet RxNorm: 191486 1 Tablet(s) PO Q8 as needed 12/09/2014 02/16/2015 Inactive Vitamin B-12 1,000 m cg/mL oral drops RxNorm: 7481392 1 Milliliter(s) PO d aily No Start Date Active Alphagan P 0.1 % eye drops RxNorm: 961571 1 Drop(s) OPH BID No Start Date Active aspirin 325 mg table t,delayed release RxNorm: 560796 1 Tablet(s) PO daily No Start Date Active Tricor 145 mg tablet RxNorm: 851291 1 Tablet(s) PO daily No Start Date Active vitamin [id number]-aouvtzh B1 oral liquid RxNorm: 1,000 Microgram(s) PO daily No Start Date Active atenolol 50 mg tablet RxNorm: 119762 1 Tablet(s) PO daily No Start Date Active Protonix 40 mg table t,delayed release RxNorm: 084299 1 Tablet(s) PO daily No Start Date 04/04/2016 Inactive glipizide 10 mg tablet RxNorm: 058080 1 Tablet(s) PO BID No Start Date 03/22/2015 Inactive Lantus 100 unit/mL s ubcutaneous solution RxNorm: 185828 15 Unit(s) SQ QPM No Start Date 12/28/2014 Inactive lisinopril 10 mg tablet RxNorm: 055490 1 Tablet(s) PO daily No Start Date 01/05/2016 Inactive Vitamin D2 50,000 un it capsule RxNorm: 306716 1 Capsule(s) PO QW No Start Date 08/01/2015 Inactive Toujeo SoloStar 300 unit/mL (1.5 mL) subcutaneous insulin pen RxNorm: 9080256 30 Unit(s) SQ QHS No Start Date 08/01/2015 Inactive simvastatin 40 mg ta blet RxNorm: 402651 1 Tablet(s) PO daily No Start Date 12/27/2015 Inactive testosterone cypiona te 200 mg/mL intramuscular oil RxNorm: 396318 1 Milliliter(s) IM monthly No Start Date 01/16/2018 Inactive hydrocodone 5 mg-linh taminophen 325 mg tablet RxNorm: 606611 1 Tablet(s) PO Q8 as needed No Start Date 12/08/2014 Inactive metformin 500 mg tablet RxNorm: 558514 1 Tablet(s) PO daily No Start Date 04/24/2015 Inactive omeprazole 20 mg cap jacquelyn,delayed release RxNorm: 425954 1 Capsule(s) PO daily No Start Date 10/05/2015 Inactive Flomax 0.4 mg capsule RxNorm: 914032 1 Capsule(s) PO daily No Start Date 03/23/2015 Inactive Medication Administered Medication Codes Instruc tions Start Date Status testosterone cypionate 200 mg/mL intramuscular oil RxNorm: 8666871 Milliliter 02/16/2019 Active testosterone cypionate 200 mg/mL intramuscular oil RxNorm: 5414080 Milliliter 01/30/2019 No longer Active testosterone cypionate 200 mg/mL intramuscular oil RxNorm: 8782521 Milliliter 01/16/2019 No longer Active testosterone cypionate 200 mg/mL intramuscular oil RxNorm: 3977195 Milliliter 01/01/2019 No longer Active testosterone cypionate 200 mg/mL intramuscular oil RxNorm: 4379087 Milliliter 12/17/2018 No longer Active testosterone cypionate 200 mg/mL intramuscular oil RxNorm: 2206780 Milliliter 12/02/2018 No longer Active testosterone cypionate 200 mg/mL intramuscular oil RxNorm: 4932573 Milliliter 11/18/2018 No longer Active testosterone cypionate 200 mg/mL intramuscular oil RxNorm: 3989853 Milliliter 11/04/2018 No longer Active testosterone cypionate 200 mg/mL intramuscular oil RxNorm: 8896258 Milliliter 10/14/2018 No longer Active testosterone cypionate 200 mg/mL intramuscular oil RxNorm: 9280435 Milliliter 10/03/2018 No longer Active testosterone cypionate 200 mg/mL intramuscular oil RxNorm: 8893064 Milliliter 09/23/2018 No longer Active testosterone cypionate 200 mg/mL intramuscular oil RxNorm: 7774017 1/2Milliliter 09/02/2018 No longer Active testosterone enanthate 200 mg/mL intramuscular oil RxNorm: 477240 Milliliter 08/21/2018 No longer Active testosterone cypionate 200 mg/mL intramuscular oil RxNorm: 6609852 Milliliter 08/08/2018 No longer Active testosterone cypionate 200 mg/mL intramuscular oil RxNorm: 7456773 /2Milliliter 07/28/2018 No longer Active testosterone cypionate 200 mg/mL intramuscular oil RxNorm: 299371 Milliliter 07/16/2018 No longer Active testosterone cypionate 200 mg/mL intramuscular oil RxNorm: 580077 Milliliter 07/02/2018 No longer Active testosterone cypionate 200 mg/mL intramuscular oil RxNorm: 833232 Milliliter 06/24/2018 No longer Active testosterone cypionate 200 mg/mL intramuscular oil RxNorm: 427239 Milliliter 06/13/2018 No longer Active testosterone cypionate 200 mg/mL intramuscular oil RxNorm: 752338 Milliliter 06/05/2018 No longer Active testosterone cypionate 200 mg/mL intramuscular oil RxNorm: 619943 Milliliter 05/30/2018 No longer Active testosterone cypionate 200 mg/mL intramuscular oil RxNorm: 390119 Milliliter 05/22/2018 No longer Active testosterone cypionate 200 mg/mL intramuscular oil RxNorm: 439307 /2Milliliter 05/12/2018 No longer Active testosterone cypionate 200 mg/mL intramuscular oil RxNorm: 544955 Milliliter 05/02/2018 No longer Active testosterone cypionate 200 mg/mL intramuscular oil RxNorm: 755465 0.5Milliliter 04/24/2018 No longer Active testosterone cypionate 200 mg/mL intramuscular oil RxNorm: 881116 /2Milliliter 04/17/2018 No longer Active ketorolac 60 mg/2 mL intramuscular solution RxNorm: 5345922 Milliliter 03/07/2018 No longer Active Kenalog 40 mg/mL suspension for injection RxNorm: 1583079 1.5Milliliter 01/30/2018 No longer Active testosterone cypionate 200 mg/mL intramuscular oil RxNorm: 769135 Milliliter 01/17/2018 No longer Active Kenalog 40 mg/mL suspension for injection RxNorm: 3610740 Milliliter 04/12/2015 No longer Active Kenalog 40 mg/mL suspension for injection RxNorm: 1580589 Milliliter 12/23/2014 No longer Active Immunizations Vaccine Codes Date Status Influenza CVX: 141 06/06 completed Influenza CVX: 141 04/25 completed Pneumococcal (Adult) CVX: 133 04/25/2017 completed Influenza CVX: 141 05/22 completed Assessments Condition Codes Effectiv e Dates Testicular dysfunction, unspecified ICD-10: E29.9 ICD-9: 257.9 02/16/2019 Chronic obstructive pulmonary disease, unspecified ICD-10: J44.9 ICD-9: 496 12/02/2018 Other insomnia ICD-10: G47.09 ICD-9: 327.09 12/02/2018 Type 2 diabetes mellitus with hyperglycemia ICD-10: E11.65 ICD-9: 250.02 12/02/2018 Unsteadiness on feet ICD-10: R26.81 ICD-9: 781.2 10/17/2018 Low back pain ICD-10: M54.5 ICD-9: 724.2 10/17/2018 Orthostatic hypotension ICD-10: I95. 1 ICD-9: 458.0 10/17/2018 Mixed hyperlipidemia ICD-10: E78.2 ICD-9: 272.2 09/02/2018 Essential (primary) hypertension ICD -10: I10 ICD-9: [...] 06/06/2018 Dysuria ICD-10: R30.0 ICD-9: 788.1 03/07/2018 Abnormal weight loss ICD-10: R63.4 ICD-9: 783.21 02/20/2018 Chronic obstructive pulmonary disease wi th (acute) [...] For Visit Effective Dates Notes diabetes mellitus 12/02/2018 vertigo 10/17/2018 diabetes mellitus [...] 33.4 pg 12/02/2018 Cbc With Differential Ord2 [place]% 8.0 % 12/02/2018 Cbc With Differential Ord2 [...] 2.13 K/ul 12/02/2018 Cbc With Differential Ord2 [place] ABS# 0.6 K/ul 12/02/2018 Cbc With Differential Ord2 Eos ABS# 0.4 K/ul 12/02/2018 Cbc With Differential Ord2 Baso ABS# 0.0 K/ul 12/02/2018 Testosterone Rza353 Testo 213.5 ng/dL 12/02/2018 A1C Frequency Wmx214 A1CF 73547-1 Last A1C performed at [facility] [place] lab on: 201812/02/2018 Testosterone Lsn755 Testo 669.0 ng/dL 09/08/2018 %Hba1C Ifu157 % HbA1c 14325-9 7.4 % 09/08/2018 %Hba1C Isp564 Gluc Ave 166 mg/dL 09/08/2018 Lipid Ord30 CHOL 114 mg/dL 09/08/2018 Lipid Ord30 HDL 28.0 mg/dl 09/08/2018 Lipid Ord30 TRIG 154 mg/dL 09/08/2018 Lipid Ord30 LDL 55 mg/dL 09/08/2018 Lipid Ord30 C/HDL 4.1 Ratio 09/08/2018 Comp Metabolic Yhq116 NA 137 mEq/L 09/08/2018 Comp Metabolic Gmf453 K 4.3 mEq/L 09/08/2018 Comp Metabolic Cyy647 CL 100 mEq/L 09/08/2018 Comp Metabolic Hdc019 CO2 27.0 mEq/L 09/08/2018 Comp Metabolic Une799 AN ION GAP 14 09/08/2018 Comp Metabolic Nge488 GL UCOSE 85 mg/dL 09/08/2018 Comp Metabolic Ozz945 Cr eat 1.1 mg/dL 09/08/2018 Comp Metabolic Yjt158 eG FR 70 ml/min/1.73m2 09/08 Comp Metabolic Hru630 BUN 11 mg/dL 09/08/2018 Comp Metabolic Ipc243 B/ C Ratio 10.3 Ratio 09/08/2018 Comp Metabolic Rbh320 CA LCIUM 9.2 mg/dL 09/08/2018 Comp Metabolic Iyn034 AL K PHOS 65 U/L 09/08/2018 Comp Metabolic Ahe422 T(SGOT) 16 U/L 09/08/2018 Comp Metabolic Mdh492 AL T(SGPT) 14 U/L 09/08/2018 Comp Metabolic Ewn111 BI LI T 0.6 mg/dL 09/08/2018 Comp Metabolic Ulg618 AL BUMIN 4.0 g/dL 09/08/2018 Comp Metabolic Wby632 TP RO 6.6 g/dL 09/08/2018 Comp Metabolic Ynd544 GL OB 2.6 g/dL 09/08/2018 Comp Metabolic Tel352 A/ G Ratio 1.6 Ratio 09/08/2018 Comp Metabolic Xcf960 Os mo 272 mOsmo 09/08/2018 Vitamin D 25 Oh Ekd0885 VITAMIN D, 25 HYDROXY 37.17 ng/mL 09/08/2018 [...] 33.3 pg 09/08/2018 Cbc With Differential Ord2 [place]kins% 8.1 % 09/08/2018 Cbc With Differential Ord2 [...] 2.44 K/ul 09/08/2018 Cbc With Differential Ord2 [place] ABS# 0.6 K/ul 09/08/2018 Cbc With Differential Ord2 Eos ABS# 0.3 K/ul 09/08/2018 Cbc With Differential Ord2 Baso ABS# 0.0 K/ul 09/08/2018 Tsh Ord6 TSH (3rd IS) 2.72 uIU/mL 09/08/2018 Comp Metabolic Cbw182 NA 139 mEq/L 04/01/2018 Comp Metabolic Jvi583 K 4.2 mEq/L 04/01/2018 Comp Metabolic Gkj853 CL 102 mEq/L 04/01/2018 Comp Metabolic Ohl744 CO2 29.0 mEq/L 04/01/2018 Comp Metabolic Fxy809 AN ION GAP 12 04/01/2018 Comp Metabolic Ftc435 GL UCOSE 87 mg/dL 04/01/2018 Comp Metabolic Vtx740 Cr eat 1.1 mg/dL 04/01/2018 Comp Metabolic Vnl161 eG FR 70 ml/min/1.73m2 04/01 Comp Metabolic Vde438 BUN 21 mg/dL 04/01/2018 Comp Metabolic Aib161 B/ C Ratio 19.4 Ratio 04/01/2018 Comp Metabolic Iug377 CA LCIUM 9.1 mg/dL 04/01/2018 Comp Metabolic Ela967 AL K PHOS 60 U/L 04/01/2018 Comp Metabolic Tzq904 T(SGOT) 15 U/L 04/01/2018 Comp Metabolic Rpw059 AL T(SGPT) 18 U/L 04/01/2018 Comp Metabolic Ymd481 BI LI T 0.4 mg/dL 04/01/2018 Comp Metabolic Jyw384 AL BUMIN 4.0 g/dL 04/01/2018 Comp Metabolic Dwl583 TP RO 6.5 g/dL 04/01/2018 Comp Metabolic Nos475 GL OB 2.5 g/dL 04/01/2018 Comp Metabolic Xpn067 A/ G Ratio 1.6 Ratio 04/01/2018 Comp Metabolic Ebv722 Os mo 280 mOsmo 04/01/2018 Lipid Ord30 [...] 34.3 pg 04/01/2018 Cbc With Differential Ord2 [place]kins% 6.0 % 04/01/2018 Cbc With Differential Ord2 [...] 3.25 K/ul 04/01/2018 Cbc With Differential Ord2 [place] ABS# 0.6 K/ul 04/01/2018 Cbc With Differential Ord2 Eos ABS# 0.4 K/ul 04/01/2018 Cbc With Differential Ord2 Baso ABS# 0.0 K/ul 04/01/2018 %Hba1C Pqj261 % HbA1c 56402-8 8.0 % 04/01/2018 %Hba1C Fox863 Gluc Ave 183 mg/dL 04/01/2018 Testosterone Lrl760 Testo 111.3 ng/dL 04/01/2018 Testosterone Qqf766 Testo 135.4 ng/dL 01/14/2018 Cbc With Differential [...] 36.0 pg 01/14/2018 Cbc With Differential Ord2 [place]kins% 6.8 % 01/14/2018 Cbc With Differential Ord2 [...] 2.71 K/ul 01/14/2018 Cbc With Differential Ord2 [place] ABS# 0.8 K/ul 01/14/2018 Cbc With Differential Ord2 Eos ABS# 0.2 K/ul 01/14/2018 Cbc With Differential Ord2 Baso ABS# 0.0 K/ul 01/14/2018 Comp Metabolic Xqc826 NA 134 mEq/L 11/20/2017 Comp Metabolic Sjm947 K 4.4 mEq/L 11/20/2017 Comp Metabolic Ezr303 CL 99 mEq/L 11/20/2017 Comp Metabolic Qic384 CO2 29.0 mEq/L 11/20/2017 Comp Metabolic Vtx296 AN ION GAP 10 11/20/2017 Comp Metabolic Rwa400 GL UCOSE 218 mg/dL 11/20/2017 Comp Metabolic Pxv843 Cr eat 1.0 mg/dL 11/20/2017 Comp Metabolic Ucg261 eG FR 78 ml/min/1.73m2 11/20 Comp Metabolic Bqz087 BUN 13 mg/dL 11/20/2017 Comp Metabolic Jnx514 B/ C Ratio 13.3 Ratio 11/20/2017 Comp Metabolic Rgm213 CA LCIUM 9.0 mg/dL 11/20/2017 Comp Metabolic Alq883 AL K PHOS 71 U/L 11/20/2017 Comp Metabolic Wkp720 T(SGOT) 18 U/L 11/20/2017 Comp Metabolic Hmx471 AL T(SGPT) 17 U/L 11/20/2017 Comp Metabolic Vmi998 BI LI T 0.4 mg/dL 11/20/2017 Comp Metabolic Ayh980 AL BUMIN 4.1 g/dL 11/20/2017 Comp Metabolic Mfl094 TP RO 6.5 g/dL 11/20/2017 Comp Metabolic Twl299 GL OB 2.4 g/dL 11/20/2017 Comp Metabolic Fgm567 A/ G Ratio 1.8 Ratio 11/20/2017 Comp Metabolic Nji063 Os mo 275 mOsmo 11/20/2017 Cbc With [...] 35.2 pg 11/20/2017 Cbc With Differential Ord2 [place]% 7.2 % 11/20/2017 Cbc With Differential Ord2 [...] 3.34 K/ul 11/20/2017 Cbc With Differential Ord2 [place] ABS# 0.6 K/ul 11/20/2017 Cbc With Differential Ord2 Eos ABS# 0.3 K/ul 11/20/2017 Cbc With Differential Ord2 Baso ABS# 0.0 K/ul 11/20/2017 Vitamin D 25 Oh Ugs7251 VITAMIN D, 25 HYDROXY 43.72 ng/mL 11/20/2017 %Hba1C Yih781 % HbA1c 18792-2 7.4 % 11/20/2017 %Hba1C Gyg231 Gluc Ave 166 mg/dL 11/20/2017 %Hba1C Qnf396 % HbA1c 30955-1 7.2 % 08/20/2017 %Hba1C Mae279 Gluc Ave 160 mg/dL 08/20/2017 Lipid Ord30 [...] 34.7 pg 08/20/2017 Cbc With Differential Ord2 [place]% 7.6 % 08/20/2017 Cbc With Differential Ord2 [...] 2.42 K/ul 08/20/2017 Cbc With Differential Ord2 [place] ABS# 0.6 K/ul 08/20/2017 Cbc With Differential Ord2 Eos ABS# 0.3 K/ul 08/20/2017 Cbc With Differential Ord2 Baso ABS# 0.0 K/ul 08/20/2017 Tsh Ord6 hTSH II 2.27 uIU/mL 08/20/2017 Comp Metabolic Wik006 NA 138 mEq/L 08/20/2017 Comp Metabolic Dem019 K 4.3 mEq/L 08/20/2017 Comp Metabolic Gwz163 CL 102 mEq/L 08/20/2017 Comp Metabolic Aat499 CO2 29.0 mEq/L 08/20/2017 Comp Metabolic Tro624 AN ION GAP 11 08/20/2017 Comp Metabolic Gkp151 GL UCOSE 89 mg/dL 08/20/2017 Comp Metabolic Akr796 Cr eat 1.0 mg/dL 08/20/2017 Comp Metabolic Ttl529 eG FR 80 ml/min/1.73m2 08/20 Comp Metabolic Out928 BUN 13 mg/dL 08/20/2017 Comp Metabolic Ewn277 B/ C Ratio 13.5 Ratio 08/20/2017 Comp Metabolic Xai759 CA LCIUM 9.2 mg/dL 08/20/2017 Comp Metabolic Hba584 AL K PHOS 69 U/L 08/20/2017 Comp Metabolic Dnw462 T(SGOT) 18 U/L 08/20/2017 Comp Metabolic Tmy369 AL T(SGPT) 19 U/L 08/20/2017 Comp Metabolic Ytm523 BI LI T 0.6 mg/dL 08/20/2017 Comp Metabolic Hoe416 AL BUMIN 4.0 g/dL 08/20/2017 Comp Metabolic Esi692 TP RO 6.6 g/dL 08/20/2017 Comp Metabolic Akw356 GL OB 2.6 g/dL 08/20/2017 Comp Metabolic Sgy096 A/ G Ratio 1.5 Ratio 08/20/2017 Comp Metabolic Ldm722 Os mo 275 mOsmo 08/20/2017 Vitamin D 25 Oh Zpd9761 VITAMIN D, 25 HYDROXY 30.96 ng/mL 08/20/2017 B12 Evn259 B12 >1500.00 pg/ml 02/22/2017 Cbc With Differential [...] 35.7 pg 02/20/2017 Cbc With Differential Ord2 [place]% 6.3 % 02/20/2017 Cbc With Differential Ord2 [...] 3.19 K/ul 02/20/2017 Cbc With Differential Ord2 [place] ABS# 0.5 K/ul 02/20/2017 Cbc With Differential Ord2 Eos ABS# 0.4 K/ul 02/20/2017 Cbc With Differential Ord2 Baso ABS# 0.0 K/ul 02/20/2017 Comp Metabolic Sox941 NA 138 mEq/L 02/20/2017 Comp Metabolic Oaz932 K 4.5 mEq/L 02/20/2017 Comp Metabolic Hih467 CL 101 mEq/L 02/20/2017 Comp Metabolic Nvk271 CO2 31.0 mEq/L 02/20/2017 Comp Metabolic Two089 AN ION GAP 11 02/20/2017 Comp Metabolic Iuu259 GL UCOSE 120 mg/dL 02/20/2017 Comp Metabolic Lii857 Cr eat 0.9 mg/dL 02/20/2017 Comp Metabolic Nox981 eG FR 83 ml/min/1.73m2 02/20 Comp Metabolic Egk053 BUN 15 mg/dL 02/20/2017 Comp Metabolic Hgz936 B/ C Ratio 16.1 Ratio 02/20/2017 Comp Metabolic Dzl745 CA LCIUM 9.1 mg/dL 02/20/2017 Comp Metabolic Zyg095 AL K PHOS 67 U/L 02/20/2017 Comp Metabolic Mod310 T(SGOT) 15 U/L 02/20/2017 Comp Metabolic Psv595 AL T(SGPT) 16 U/L 02/20/2017 Comp Metabolic Bzu509 BI LI T 0.5 mg/dL 02/20/2017 Comp Metabolic Lox087 AL BUMIN 4.0 g/dL 02/20/2017 Comp Metabolic Hej415 TP RO 6.4 g/dL 02/20/2017 Comp Metabolic Ovl223 GL OB 2.4 g/dL 02/20/2017 Comp Metabolic Nek340 A/ G Ratio 1.7 Ratio 02/20/2017 Comp Metabolic Cqz034 Os mo 278 mOsmo 02/20/2017 Tsh Ord6 hTSH II 2.05 uIU/mL 02/20/2017 %Hba1C Diu820 % HbA1c 94411-6 7.6 % 02/20/2017 %Hba1C Hvb149 Gluc Ave 171 mg/dL 02/20/2017 Vitamin D 25 Oh Yah8128 VITAMIN D, 25 HYDROXY 44.40 ng/mL 12/21/2016 Comp Metabolic Aka166 NA 131 mEq/L 12/21/2016 Comp Metabolic Wsg682 K 4.2 mEq/L 12/21/2016 Comp Metabolic Jdp422 CL 97 mEq/L 12/21/2016 Comp Metabolic Etx739 CO2 27.0 mEq/L 12/21/2016 Comp Metabolic Vji888 AN ION GAP 11 12/21/2016 Comp Metabolic Ues003 GL UCOSE 266 mg/dL 12/21/2016 Comp Metabolic Zmy978 Cr eat 0.9 mg/dL 12/21/2016 Comp Metabolic Mjt607 eG FR 88 ml/min/1.73m2 12/21 Comp Metabolic Yaj726 BUN 12 mg/dL 12/21/2016 Comp Metabolic Hcx542 B/ C Ratio 13.6 Ratio 12/21/2016 Comp Metabolic Grg389 CA LCIUM 8.6 mg/dL 12/21/2016 Comp Metabolic Lsb151 AL K PHOS 69 U/L 12/21/2016 Comp Metabolic Ejv705 T(SGOT) 15 U/L 12/21/2016 Comp Metabolic Bpc190 AL T(SGPT) 14 U/L 12/21/2016 Comp Metabolic Fcj455 BI LI T 0.3 mg/dL 12/21/2016 Comp Metabolic Uum941 AL BUMIN 3.7 g/dL 12/21/2016 Comp Metabolic Kpc912 TP RO 5.9 g/dL 12/21/2016 Comp Metabolic Gkc753 GL OB 2.2 g/dL 12/21/2016 Comp Metabolic Wit559 A/ G Ratio 1.7 Ratio 12/21/2016 Comp Metabolic Bws799 Os mo 272 mOsmo 12/21/2016 Cbc With [...] 34.6 pg 12/21/2016 Cbc With Differential Ord2 [place]kins% 6.9 % 12/21/2016 Cbc With Differential Ord2 [...] 2.05 K/ul 12/21/2016 Cbc With Differential Ord2 [place] ABS# 0.4 K/ul 12/21/2016 Cbc With Differential Ord2 Eos ABS# 0.2 K/ul 12/21/2016 Cbc With Differential Ord2 Baso ABS# 0.0 K/ul 12/21/2016 Comp Metabolic Bij638 NA 138 mEq/L 09/03/2016 Comp Metabolic Ihw975 K 4.5 mEq/L 09/03/2016 Comp Metabolic Vgq831 CL 102 mEq/L 09/03/2016 Comp Metabolic Hej309 CO2 30.0 mEq/L 09/03/2016 Comp Metabolic Cen066 AN ION GAP 11 09/03/2016 Comp Metabolic Uym937 GL UCOSE 113 mg/dL 09/03/2016 Comp Metabolic Dgx773 Cr eat 1.0 mg/dL 09/03/2016 Comp Metabolic Eqa751 eG FR 81 ml/min/1.73m2 09/03 Comp Metabolic Mco930 BUN 10 mg/dL 09/03/2016 Comp Metabolic Nvu074 B/ C Ratio 10.5 Ratio 09/03/2016 Comp Metabolic Fmg769 CA LCIUM 9.1 mg/dL 09/03/2016 Comp Metabolic Ktl121 AL K PHOS 71 U/L 09/03/2016 Comp Metabolic Pgp079 T(SGOT) 18 U/L 09/03/2016 Comp Metabolic Hbx813 AL T(SGPT) 17 U/L 09/03/2016 Comp Metabolic Hjz211 BI LI T 0.6 mg/dL 09/03/2016 Comp Metabolic Cwd501 AL BUMIN 4.1 g/dL 09/03/2016 Comp Metabolic Iwv843 TP RO 6.4 g/dL 09/03/2016 Comp Metabolic Qno970 GL OB 2.3 g/dL 09/03/2016 Comp Metabolic Zwg706 A/ G Ratio 1.8 Ratio 09/03/2016 Comp Metabolic Hpa606 Os mo 276 mOsmo 09/03/2016 Vitamin D 25 Oh Xin2722 VITAMIN D, 25 HYDROXY 28.23 ng/mL 09/03/2016 [...] 34.4 pg 09/03/2016 Cbc With Differential Ord2 [place]% 8.9 % 09/03/2016 Cbc With Differential Ord2 [...] 3.34 K/ul 09/03/2016 Cbc With Differential Ord2 [place] ABS# 0.7 K/ul 09/03/2016 Cbc With Differential Ord2 Eos ABS# 0.4 K/ul 09/03/2016 Cbc With Differential Ord2 Baso ABS# 0.0 K/ul 09/03/2016 Lipid Ord30 CHOL 120 mg/dL 09/03/2016 Lipid Ord30 HDL 33.0 mg/dl 09/03/2016 Lipid Ord30 TRIG 161 mg/dL 09/03/2016 Lipid Ord30 LDL 55 mg/dL 09/03/2016 Lipid Ord30 C/HDL 3.6 Ratio 09/03/2016 %Hba1C Pco673 % HbA1c 41194-4 7.5 % 09/03/2016 %Hba1C Bfr863 Gluc Ave 169 mg/dL 09/03/2016 Tsh Ord6 hTSH II 1.50 uIU/mL 05/23/2016 %Hba1C Ccw809 % HbA1c 82922-4 7.6 % 05/23/2016 %Hba1C Mjn866 Gluc Ave 171 mg/dL 05/23/2016 Comp Metabolic Khd720 NA 135 mEq/L 05/23/2016 Comp Metabolic Nca265 K 4.4 mEq/L 05/23/2016 Comp Metabolic Zxs749 CL 99 mEq/L 05/23/2016 Comp Metabolic Bbj492 CO2 28.0 mEq/L 05/23/2016 Comp Metabolic God964 AN ION GAP 12 05/23/2016 Comp Metabolic Ojq962 GL UCOSE 257 mg/dL 05/23/2016 Comp Metabolic Yoq072 Cr eat 0.8 mg/dL 05/23/2016 Comp Metabolic Lmy629 eG FR 95 ml/min/1.73m2 05/23 Comp Metabolic Wbl707 BUN 11 mg/dL 05/23/2016 Comp Metabolic Ohf364 B/ C Ratio 13.3 Ratio 05/23/2016 Comp Metabolic Wnr829 CA LCIUM 9.0 mg/dL 05/23/2016 Comp Metabolic Esk641 AL K PHOS 82 U/L 05/23/2016 Comp Metabolic Rwl452 T(SGOT) 21 U/L 05/23/2016 Comp Metabolic Uwj898 AL T(SGPT) 20 U/L 05/23/2016 Comp Metabolic Nro744 BI LI T 0.3 mg/dL 05/23/2016 Comp Metabolic Tmq534 AL BUMIN 4.0 g/dL 05/23/2016 Comp Metabolic Xjf829 TP RO 6.4 g/dL 05/23/2016 Comp Metabolic Fvi044 GL OB 2.4 g/dL 05/23/2016 Comp Metabolic Kqj600 A/ G Ratio 1.6 Ratio 05/23/2016 Comp Metabolic Kfz179 Os mo 278 mOsmo 05/23/2016 Cbc With [...] 34.5 pg 05/23/2016 Cbc With Differential Ord2 [place]% 6.1 % 05/23/2016 Cbc With Differential Ord2 [...] 2.38 K/ul 05/23/2016 Cbc With Differential Ord2 [place] ABS# 0.4 K/ul 05/23/2016 Cbc With Differential Ord2 Eos ABS# 0.2 K/ul 05/23/2016 Cbc With Differential Ord2 Baso ABS# 0.0 K/ul 05/23/2016 B12 Vrn536 B12 597.00 pg/ml 05/23/2016 Metabolic Ord15 NA [...] 0.92 uIU/mL 07/29/2015 Vitamin D 25 Oh Idz3401 VITAMIN D, 25 HYDROXY 26.93 ng/mL 07/29/2015 %Hba1C Zxl501 % HbA1c 87296-2 8.8 % 07/29/2015 %Hba1C Zmc279 Gluc Ave 206 mg/dL 07/29/2015 Cbc With [...] Ord2 RDW 14.9 % 07/29/2015 Comp Metabolic Kdm811 NA 138 mEq/L 07/29/2015 Comp Metabolic Kwp350 K 4.4 mEq/L 07/29/2015 Comp Metabolic Jya256 CL 102 mEq/L 07/29/2015 Comp Metabolic Kig769 CO2 28.0 mEq/L 07/29/2015 Comp Metabolic Qdf240 AN ION GAP 12 07/29/2015 Comp Metabolic Jni226 GL UCOSE 261 mg/dL 07/29/2015 Comp Metabolic Rog960 Cr eat 1.0 mg/dL 07/29/2015 Comp Metabolic Hkp668 eG FR 77 ml/min/1.73m2 07/29 Comp Metabolic Ydx160 BUN 13 mg/dL 07/29/2015 Comp Metabolic Hhn364 B/ C Ratio 13.0 Ratio 07/29/2015 Comp Metabolic Jey959 CA LCIUM 9.1 mg/dL 07/29/2015 Comp Metabolic Joz429 AL K PHOS 64 U/L 07/29/2015 Comp Metabolic Vde178 T(SGOT) 20 U/L 07/29/2015 Comp Metabolic Alb878 AL T(SGPT) 22 U/L 07/29/2015 Comp Metabolic Gjf779 BI LI T 0.4 mg/dL 07/29/2015 Comp Metabolic Zan823 AL BUMIN 4.0 g/dL 07/29/2015 Comp Metabolic Jue932 TP RO 6.1 g/dL 07/29/2015 Comp Metabolic Zqu463 GL OB 2.1 g/dL 07/29/2015 Comp Metabolic Zud812 A/ G Ratio 1.9 Ratio 07/29/2015 Comp Metabolic Wlx423 Os mo 285 mOsmo 07/29/2015 Cbc With [...] Ord2 RDW 13.1 % 05/06/2015 Comp Metabolic Izl851 NA 134 mEq/L 05/06/2015 Comp Metabolic Usb253 K 4.4 mEq/L 05/06/2015 Comp Metabolic Hqo875 CL 98 mEq/L 05/06/2015 Comp Metabolic Cur776 CO2 29.0 mEq/L 05/06/2015 Comp Metabolic Jeu738 AN ION GAP 11 05/06/2015 Comp Metabolic Xnx043 GL UCOSE 321 mg/dL 05/06/2015 Comp Metabolic Qpd463 Cr eat 1.0 mg/dL 05/06/2015 Comp Metabolic Zzz614 eG FR 78 ml/min/1.73m2 05/06 Comp Metabolic Zxg509 BUN 20 mg/dL 05/06/2015 Comp Metabolic Blt994 B/ C Ratio 20.4 Ratio 05/06/2015 Comp Metabolic Dba344 CA LCIUM 9.5 mg/dL 05/06/2015 Comp Metabolic Cou118 AL K PHOS 62 U/L 05/06/2015 Comp Metabolic Zbq095 T(SGOT) 21 U/L 05/06/2015 Comp Metabolic Oyp541 AL T(SGPT) 37 U/L 05/06/2015 Comp Metabolic Eia344 BI LI T 0.4 mg/dL 05/06/2015 Comp Metabolic Lsd736 AL BUMIN 3.8 g/dL 05/06/2015 Comp Metabolic Edc240 TP RO 6.1 g/dL 05/06/2015 Comp Metabolic Kcq617 GL OB 2.3 g/dL 05/06/2015 Comp Metabolic Fcl469 A/ G Ratio 1.7 Ratio 05/06/2015 Comp Metabolic Iqs557 Os mo 283 mOsmo 05/06/2015 Tsh Ord6 hTSH II 1.65 uIU/mL 02/18/2015 B12 Rmk023 B12 605.00 pg/ml 02/18/2015 %Hba1C Nmb998 % HbA1c 54238-9 8.3 % 02/18/2015 %Hba1C Meo183 Gluc Ave 192 mg/dL 02/18/2015 Cbc With [...] Ord2 RDW 13.9 % 02/17/2015 Comp Metabolic Jet840 NA 137 mEq/L 02/17/2015 Comp Metabolic Gcl220 K 4.4 mEq/L 02/17/2015 Comp Metabolic Ati704 CL 100 mEq/L 02/17/2015 Comp Metabolic Kpy590 CO2 31.0 mEq/L 02/17/2015 Comp Metabolic Dfi118 AN ION GAP 10 02/17/2015 Comp Metabolic Kfj603 GL UCOSE 307 mg/dL 02/17/2015 Comp Metabolic Gxm881 Cr eat 1.0 mg/dL 02/17/2015 Comp Metabolic Oty862 eG FR 74 ml/min/1.73m2 02/17 Comp Metabolic Pug588 BUN 22 mg/dL 02/17/2015 Comp Metabolic Ysu751 B/ C Ratio 21.4 Ratio 02/17/2015 Comp Metabolic Wfh614 CA LCIUM 9.5 mg/dL 02/17/2015 Comp Metabolic Rxi054 AL K PHOS 78 U/L 02/17/2015 Comp Metabolic Pjz535 T(SGOT) 18 U/L 02/17/2015 Comp Metabolic Ksg278 AL T(SGPT) 32 U/L 02/17/2015 Comp Metabolic Xgc564 BI LI T 0.5 mg/dL 02/17/2015 Comp Metabolic Djy593 AL BUMIN 4.3 g/dL 02/17/2015 Comp Metabolic Att721 TP RO 6.7 g/dL 02/17/2015 Comp Metabolic Wnd739 GL OB 2.4 g/dL 02/17/2015 Comp Metabolic Mqc037 A/ G Ratio 1.8 Ratio 02/17/2015 Comp Metabolic Kdd435 Os mo 289 mOsmo 02/17/2015 Review of Systems System Result Effective Dates Constitutional No recent illness 12/02/2018 Constitutional No [...] lips 09/02/2018 None Full Exam - General 1995 Ears/Nose/Throat oral cavity/pharynx/larynx Overall: oral mucosa clear [...] lips 01/13/2018 None Full Exam - General 1995 Ears/Nose/Throat oral cavity/pharynx/larynx Overall: oral mucosa clear [...] inspection of skin Location: face 03/07/2015 on hindu, cheeks,actinic keratosis with irritation on left cheek - left hindu - croptherapy on these two lesions - [...] Procedure Codes Date THER/PROPH/DIAG INJ SC/IM CPT-4: 44918 02/16/2019 THER/PROPH/DIAG INJ SC/IM CPT-4: 26407 01/30/2019 THER/PROPH/DIAG INJ SC/IM CPT-4: 20413 01/16/2019 THER/PROPH/DIAG INJ SC/IM CPT-4: 70210 01/01/2019 THER/PROPH/DIAG INJ SC/IM CPT-4: 96009 12/17/2018 THER/PROPH/DIAG INJ SC/IM CPT-4: 70776 12/02/2018 THER/PROPH/DIAG INJ SC/IM CPT-4: 81006 11/18/2018 THER/PROPH/DIAG INJ SC/IM CPT-4: 24919 11/04/2018 THER/PROPH/DIAG INJ SC/IM CPT-4: 92799 10/14/2018 THER/PROPH/DIAG INJ SC/IM CPT-4: 92586 10/03/2018 THER/PROPH/DIAG INJ SC/IM CPT-4: 86224 09/23/2018 THER/PROPH/DIAG INJ SC/IM CPT-4: 25133 09/02/2018 THER/PROPH/DIAG INJ SC/IM CPT-4: 36136 08/21/2018 THER/PROPH/DIAG INJ SC/IM CPT-4: 86335 08/08/2018 THER/PROPH/DIAG INJ SC/IM CPT-4: 27315 07/28/2018 THER/PROPH/DIAG INJ SC/IM CPT-4: 44971 07/16/2018 THER/PROPH/DIAG INJ SC/IM CPT-4: 25803 07/02/2018 PPPS, SUBSEQ VISIT CPT- 4: G0439 06/30/2018 THER/PROPH/DIAG INJ SC/IM CPT-4: 44685 06/24/2018 THER/PROPH/DIAG INJ SC/IM CPT-4: 95979 06/13/2018 ADMIN INFLUENZA VIRU S VAC CPT-4: G0008 06/06/2018 FLU VACC PRSV FREE I NC ANTIG CPT-4: 23742 06/06/2018 THER/PROPH/DIAG INJ SC/IM CPT-4: 61747 06/05/2018 THER/PROPH/DIAG INJ SC/IM CPT-4: [address] 05/30/2018 THER/PROPH/DIAG INJ SC/IM CPT-4: 00021 05/22/2018 THER/PROPH/DIAG INJ SC/IM CPT-4: 96670 05/12/2018 THER/PROPH/DIAG INJ SC/IM CPT-4: 61846 05/02/2018 THER/PROPH/DIAG INJ SC/IM CPT-4: 38162 04/24/2018 THER/PROPH/DIAG INJ SC/IM CPT-4: 82541 04/17/2018 KETOROLAC TROMETHAMI NE INJ CPT-4: J1885 03/07/2018 URINALYSIS NONAUTO W /O SCOPE CPT-4: 44115 03/07/2018 THER/PROPH/DIAG INJ SC/IM CPT-4: 48473 02/20/2018 TRIAMCINOLONE ACET I [place] NOS CPT-4: J3301 01/30/2018 THER/PROPH/DIAG INJ SC/IM CPT-4: 55395 01/17/2018 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 3-[address]: 404234095 CPT-4: G0436 04/25/2017 ADMIN INFLUENZA VIRU S VAC CPT-4: G0008 04/25/2017 ADMIN PNEUMOCOCCAL V ACCINE SNOMED CT: 87624458 CPT-4: G0009 04/25/2017 PNEUMOCOCCAL VACC [address]: 83241972 CPT-4: 31943 04/25/2017 FLU VACC PRSV FREE I NC ANTIG CPT-4: 04948 04/25/2017 ADMIN INFLUENZA VIRU S VAC CPT-4: G0008 05/22/2016 FLU VACC 4 TELLY 3 YRS PLUS IM Formatting Model/CDA Sections, Assigned to/Angela Clemons SNOMED CT: 61737602 CPT-4: 21161Zyjpnss 05/22/2016 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 3-[address]: 369110596 CPT-4: G0436 11/25/2015 URINALYSIS NONAUTO W /O SCOPE CPT-4: 03022 05/09/2015 TRIAMCINOLONE ACET I [place] NOS CPT-4: J3301 04/12/2015 DESTRUCT PREMALG LESION CPT-4: 12696 03/07/2015 DESTRUCT PREMALG LES 2-14 CPT-4: 05742 03/07/2015 REMOVE IMPACTED EAR WAX UNI CPT-4: 40291 12/31/2014 THER/PROPH/DIAG INJ SC/IM CPT-4: 80301 12/23/2014 TRIAMCINOLONE ACET I [place] NOS CPT-4: J3301 12/23/2014 Vital Signs Date Vital 12/02/2018 Blood Pressure 1: 140/70 Code: 8480-6 BMI: 21.9 Code: 81753-4 Heart Rate 1: 61 bpm Height: 5'11" SpO2: 94% Weight: 157 lbs 10/17/2018 Blood Pressure 1: 124/54 Code: 8480-6 BMI: 21.9 Code: 31196-3 Heart Rate 1: 64 bpm Height: 5'11" SpO2: 93% Weight: 157 lbs 09/02/2018 Blood Pressure 1: 140/80 Code: 8480-6 BMI: 21.2 Code: 10521-2 Heart Rate 1: 68 bpm Height: 5'11" SpO2: 97% Weight: 152 lbs 06/30/2018 BMI: 21.8 Code: 31403-6 Height: 5'11" Weight: 156 lbs 06/06/2018 Blood Pressure 1: 128/76 Code: 8480-6 BMI: 22.0 Code: 09941-7 Heart Rate 1: 81 bpm Height: 5'11" SpO2: 92% Weight: 158 lbs 04/04/2018 Blood Pressure 1: 124/70 Code: 8480-6 BMI: 20.8 Code: 13583-5 Heart Rate 1: 65 bpm Height: 5'11" SpO2: 95% Weight: 149 lbs 03/07/2018 Blood Pressure 1: 148/70 Code: 8480-6 BMI: 21.2 Code: 53839-2 Heart Rate 1: 66 bpm Height: 5'11" SpO2: 94% Weight: 152 lbs 02/20/2018 Blood Pressure 1: 134/58 Code: 8480-6 BMI: 20.5 Code: 86624-5 Heart Rate 1: 61 bpm Height: 5'11" SpO2: 92% Weight: 147 lbs 01/30/2018 Blood Pressure 1: 158/68 Code: 8480-6 BMI: 21.5 Code: 89556-0 Heart Rate 1: 71 bpm Height: 5'11" SpO2: 92% Weight: 154 lbs 01/14/2018 Blood Pressure 1: 156/70 Code: 8480-6 Height: Weight: 01/13/2018 Blood Pressure 1: 148/62 Code: 8480-6 BMI: 20.9 Code: 64094-5 Heart Rate 1: 54 bpm Height: 5'11" SpO2: 97% Weight: 150 lbs 11/19/2017 Blood Pressure 1: 150/60 Code: 8480-6 BMI: 21.8 Code: 81436-3 Heart Rate 1: 63 bpm Height: 5'11" SpO2: 98% Weight: 156 lbs 10/02/2017 Blood Pressure 1: 168/60 Code: 8480-6 BMI: 21.9 Code: 95104-2 Heart Rate 1: 52 bpm Height: 5'11" SpO2: 97% Weight: 157 lbs 07/23/2017 Blood Pressure 1: 170/70 Code: 8480-6 BMI: 21.8 Code: 08935-7 Heart Rate 1: 65 bpm Height: 5'11" SpO2: 98% Weight: 156 lbs 04/25/2017 Blood Pressure 1: 138/60 Code: 8480-6 BMI: 21.6 Code: 79094-3 Heart Rate 1: 55 bpm Height: 5'11" SpO2: 93% Weight: 155 lbs 02/19/2017 Blood Pressure 1: 138/64 Code: 8480-6 BMI: 21.3 Code: 88773-0 Heart Rate 1: 52 bpm Height: 5'11" SpO2: 96% Weight: 152 lbs 8 oz 01/21/2017 Blood Pressure 1: 160/68 Code: 8480-6 BMI: 21.3 Code: 72888-4 Heart Rate 1: 62 bpm Height: 5'11" SpO2: 96% Weight: 153 lbs 12/20/2016 Blood Pressure 1: 124/66 Code: 8480-6 BMI: 21.5 Code: 87017-6 Height: 5'11" Weight: 154 lbs 08/23/2016 Blood Pressure 1: 142/52 Code: 8480-6 BMI: 21.2 Code: 54376-6 Heart Rate 1: 54 bpm Height: 5'11" SpO2: 96% Weight: 152 lbs 05/22/2016 Blood Pressure 1: 130/76 Code: 8480-6 BMI: 21.5 Code: 25450-9 Heart Rate 1: 78 bpm Height: 5'11" SpO2: 92% Weight: 154 lbs 02/24/2016 Blood Pressure 1: 128/80 Code: 8480-6 BMI: 21.2 Code: 52593-6 Heart Rate 1: 74 bpm Height: 5'11" SpO2: 96% Weight: 152 lbs 01/27/2016 Blood Pressure 1: 144/60 Code: 8480-6 BMI: 21.2 Code: 61382-6 Heart Rate 1: 74 bpm Height: 5'11" SpO2: 97% Weight: 152 lbs 11/25/2015 Blood Pressure 1: 110/52 Code: 8480-6 BMI: 21.9 Code: 96396-9 Heart Rate 1: 65 bpm Height: 5'11" SpO2: 92% Weight: 157 lbs 07/28/2015 Blood Pressure 1: 138/62 Code: 8480-6 BMI: 21.8 Code: 38820-0 Heart Rate 1: 63 bpm Height: 5'11" SpO2: 91% Weight: 156 lbs 05/26/2015 Blood Pressure 1: 120/58 Code: 8480-6 BMI: 21.5 Code: 28454-7 Heart Rate 1: 99 bpm Height: 5'11" SpO2: 96% Weight: 154 lbs 05/06/2015 Blood Pressure 1: 120/58 Code: 8480-6 BMI: 21.2 Code: 06144-6 Heart Rate 1: 66 bpm Height: 5'11" SpO2: 96% Weight: 152 lbs 04/25/2015 Blood Pressure 1: 136/62 Code: 8480-6 BMI: 21.2 Code: 47984-0 Heart Rate 1: 63 bpm Height: 5'11" SpO2: 97% Weight: 152 lbs 04/12/2015 Blood Pressure 1: 160/58 Code: 8480-6 BMI: 21.6 Code: 93516-2 Heart Rate 1: 62 bpm Height: 5'11" Weight: 155 lbs 03/24/2015 Blood Pressure 1: 138/68 Code: 8480-6 BMI: 22.0 Code: 12920-8 Heart Rate 1: 65 bpm Height: 5'11" SpO2: 96% Weight: 158 lbs 03/07/2015 Blood Pressure 1: 116/52 Code: 8480-6 BMI: 22.2 Code: 46552-0 Heart Rate 1: 64 bpm Height: 5'11" SpO2: 97% Weight: 159 lbs 02/17/2015 Blood Pressure 1: 148/58 Code: 8480-6 BMI: 21.3 Code: 11702-0 Heart Rate 1: 63 bpm Height: 5'11" SpO2: 97% Weight: 153 lbs 12/31/2014 Blood Pressure 1: 100/60 Code: 8480-6 BMI: 21.8 Code: 24720-3 Heart Rate 1: 68 bpm Height: 5'11" Weight: 156 lbs 12/23/2014 Blood Pressure 1: 148/64 Code: 8480-6 BMI: 21.9 Code: 96571-5 Heart Rate 1: 64 bpm Height: 5'11" Weight: 157 lbs 12/09/2014 Blood Pressure 1: 152/62 Code: 8480-6 Heart Rate 1: 58 bpm SpO2: 98% Weight: 159 lbs Functional Status No Functional Status data History of Present Illness Symptom Name Status Resu lt Effective Date Notes Quality insulin depend ent 12/02/2018 None Quality [...] 11/25/2015 None cough Location in the [facility] 11/25/2015 None cough Quality acute 11/25/2015 [...] Encounters Encounter Performer Loca tion Codes Date ([id number]) 56162 EST. 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 P ATIENT, LEVEL III Diagnosis: Orthostatic hypotension[ICD10: I95.1] Diagnosis: Low back pain[ICD10: M54.5] Diagnosis: Unsteadiness on feet[ICD10: R26.81] [facility] CPT-4: 21997 10/17/2018 ([id number]) 30205 EST. 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 P ATIENT, LEVEL IV Diagnosis: Cellulitis of face[ICD10: L03.211] Diagnosis: Type 2 diabetes mellitus without complications[ICD10: E11.9] Diagnosis: Essential (primary) hypertension[ICD10: I10] Diagnosis: Encounter for immunization[ICD10: Z23] Karmen Ash MD, [facility] CPT-4: 29945 06/06/2018 ([id number]) 70790 EST. 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 P ATIENT, LEVEL III Diagnosis: Low back pain[ICD10: M54.5] Diagnosis: Dysuria[ICD10: R30.0] Karmen Ash MD, [facility] CPT-4: 92543 03/07/2018 ([id number]) 72212 EST. 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 P ATIENT, LEVEL III Diagnosis: Chronic obstructive pulmonary disease with (acute) exacerbation[ICD10: J44.1] Karmen Ash MD, [facility] CPT-4: 41022 01/30/2018 73985 EST. PATIENT, LEVEL II Diagnosis: Insect bite (nonvenomous), left lower leg, initial encounter[ICD10: S80.862A] Karmen Ash MD, [facility] CPT-4: 53885 01/14/2018 ([id number]) 70397 EST. P ATIENT, LEVEL IV Diagnosis: Type 2 diabetes mellitus with hyperglycemia[ICD10: E11.65] Diagnosis: Chronic obstructive pulmonary disease, unspecified[ICD10: J44.9] Diagnosis: Other fatigue[ICD10: R53.83] Karmen Ash MD, [facility] CPT- 4: 47133 01/13/2018 ([id number]) 51975 EST. P ATIENT, LEVEL IV Diagnosis: Type 2 diabetes mellitus with hyperglycemia[ICD10: E11.65] Diagnosis: Vitamin D deficiency, unspecified[ICD10: E55.9] Diagnosis: Essential (primary) hypertension[ICD10: I10] Diagnosis: Abdominal distension (gaseous)[ICD10: R14.0] Diagnosis: Drug induced constipation[ICD10: K59.03] Karmen Ash MD, [facility] CPT-4: 31089 11/19/2017 64564 EST. PATIENT, LEVEL IV Diagnosis: Low back pain[ICD10: M54.5] Diagnosis: Chronic obstructive pulmonary disease, unspecified[ICD10: J44.9] Brunilda Ash MD, [facility] CPT-4: 88609 10/02/2017 ([id number]) 38324 EST. P ATIENT, LEVEL IV Diagnosis: Essential (primary) hypertension[ICD10: I10] Diagnosis: Type 2 diabetes mellitus with hyperglycemia[ICD10: E11.65] Diagnosis: Vitamin D deficiency, unspecified[ICD10: E55.9] Diagnosis: Mixed hyperlipidemia[ICD10: E78.2] Karmen Ash MD, [facility] CPT-4: 17781 07/23/2017 ([id number]) 11030 EST. P ATIENT, LEVEL IV Diagnosis: Essential (primary) hypertension[ICD10: I10] Diagnosis: Type 2 diabetes mellitus with hyperglycemia[ICD10: E11.65] Diagnosis: Chronic obstructive pulmonary disease, unspecified[ICD10: J44.9] Diagnosis: Nicotine dependence, unspecified, uncomplicated[ICD10: F17.200] Diagnosis: Encounter for immunization[ICD10: Z23] Karmen Ash MD, [facility] CPT-4: 23447 04/25/2017 ([id number]) 24279 EST. P ATIENT, LEVEL IV Diagnosis: Type 2 diabetes mellitus with hyperglycemia[ICD10: E11.65] Diagnosis: Essential (primary) hypertension[ICD10: I10] Diagnosis: Anemia, unspecified[ICD10: D64.9] Karmen Ash MD, [facility] CPT- 4: 84808 02/19/2017 ([id number]) 23805 EST. P ATIENT, LEVEL IV Diagnosis: Slow transit constipation[ICD10: K59.01] Diagnosis: Gastro-esophageal reflux disease without esophagitis[ICD10: K21.9] Diagnosis: Essential (primary) hypertension[ICD10: I10] Karmen Ash MD, [facility] CPT-4: 36953 01/21/2017 ([id number]) 10025 EST. P ATIENT, LEVEL IV Diagnosis: Type 2 diabetes mellitus with hyperglycemia[ICD10: E11.65] Diagnosis: Vitamin D deficiency, unspecified[ICD10: E55.9] Diagnosis: Essential (primary) hypertension[ICD10: I10] Diagnosis: Chronic obstructive pulmonary disease, unspecified[ICD10: J44.9] Karmen Ash MD, [facility] CPT-4: 96218 12/20/2016 ([id number]) 85500 EST. P ATIENT, LEVEL IV Diagnosis: Type 2 diabetes mellitus with hyperglycemia[ICD10: E11.65] Diagnosis: Essential (primary) hypertension[ICD10: I10] Diagnosis: Mixed hyperlipidemia[ICD10: E78.2] Diagnosis: Vitamin D deficiency, unspecified[ICD10: E55.9] Karmen Ash MD, [facility] CPT-4: 48744 08/23/2016 ([id number]) 58701 EST. P ATIENT, LEVEL IV Diagnosis: Type 2 diabetes mellitus with hyperglycemia[ICD10: E11.65] Diagnosis: Essential (primary) hypertension[ICD10: I10] Diagnosis: Chronic obstructive pulmonary disease, unspecified[ICD10: J44.9] Karmen Ash MD, [facility] CPT-4: 73692 05/22/2016 ([id number]) 86311 EST. P ATIENT, LEVEL III Diagnosis: Dysuria[ICD10: R30.0] Diagnosis: Essential (primary) hypertension[ICD10: I10] Karmen Ash MD, [facility] CPT-4: 33328 02/24/2016 ([id number]) 13122 EST. P ATIENT, LEVEL IV Diagnosis: Gastro-esophageal reflux disease without esophagitis[ICD10: K21.9] Diagnosis: Slow transit constipation[ICD10: K59.01] Diagnosis: Type 2 diabetes mellitus with hyperglycemia[ICD10: E11.65] Karmen Ash MD, [facility] CPT-4: 93703 01/27/2016 ([id number]) 17103 EST. P ATIENT, LEVEL IV Diagnosis: Essential (primary) hypertension[ICD10: I10] Diagnosis: Type 2 diabetes mellitus with hyperglycemia[ICD10: E11.65] Diagnosis: Vitamin D deficiency, unspecified[ICD10: E55.9] Diagnosis: Chronic obstructive pulmonary disease, unspecified[ICD10: J44.9] Diagnosis: Mixed hyperlipidemia[ICD10: E78.2] Diagnosis: Tobacco use[ICD10: Z72.0] Karmen Ash MD, [facility] CPT- 4: 11471 11/25/2015 ([id number]) 41552 EST. P ATIENT, LEVEL IV Diagnosis: Type 2 diabetes mellitus with hyperglycemia[ICD10: E11.65] Diagnosis: Essential (primary) hypertension[ICD10: I10] Diagnosis: Vitamin D deficiency, unspecified[ICD10: E55.9] Karmen Ash MD, [facility] CPT-4: 13439 07/28/2015 ([id number]) 82498 EST. P ATIENT, LEVEL III Diagnosis: Type 2 diabetes mellitus with hyperglycemia[ICD10: E11.65] Diagnosis: Essential (primary) hypertension[ICD10: I10] Violeta Ash MD, [facility] CPT-4: 50899 05/26/2015 ([id number]) 78723 EST. P ATIENT, LEVEL III Diagnosis: DIABETES TYPE II[ICD9: 250.00] Diagnosis: COPD (chronic obstructive pulmonary disease)[ICD9: 496] Diagnosis: ESSENTIAL HYPERTENSION[ICD9: 401.9] Diagnosis: Cough[ICD9: 786.2] Violeta Ash MD, [facility] CPT-4: 47746 05/06/2015 ([id number]) 35853 EST. P ATIENT, LEVEL III Diagnosis: COPD (chronic obstructive pulmonary disease)[ICD9: 496] Diagnosis: DIABETES TYPE II[ICD9: 250.00] Diagnosis: Muscle ache[ICD9: 729.1] Karmen Ash MD, [facility] CPT- 4: 55161 04/25/2015 ([id number]) 69035 EST. P ATIENT, LEVEL III Diagnosis: ACTINIC KERATOSIS[ICD9: 702.0] Diagnosis: COPD (chronic obstructive pulmonary disease)[ICD9: 496] Diagnosis: DIABETES TYPE II[ICD9: 250.00] Diagnosis: ACUTE URI[ICD9: 465.9] Violeta Ash MD, [facility] CPT-4: 45059 04/12/2015 ([id number]) 86831 EST. P ATIENT, LEVEL III Diagnosis: DIABETES TYPE II[ICD9: 250.00] Violeta Ash MD, [facility] CPT-4: 34028 03/24/2015 ([id number]) 45859 EST. P ATIENT, LEVEL IV Diagnosis: DIABETES TYPE II[ICD9: 250.00] Diagnosis: Hypoglycemia[ICD9: 251.2] Diagnosis: Skin texture changes[ICD9: 782.8] Violeta Ahs MD, [facility] CPT-4: 53053 03/07/2015 ([id number]) 82251 EST. P ATIENT, LEVEL IV Diagnosis: COPD (chronic obstructive pulmonary disease)[ICD9: 496] Diagnosis: Fatigue[ICD9: 780.79] Diagnosis: Insulin dependent diabetes mellitus[ICD9: 250.00] Diagnosis: Unsteady gait[ICD9: 781.2] Maame Sumner Violeta Novelty MD, [facility] CPT-4: 47616 02/17/2015 ([id number]) 45829 EST. [facility] Diagnosis: BPPV (benign paroxysmal positional vertigo)[ICD9: 386.11] Diagnosis: Impacted cerumen[ICD9: 380.4] Diagnosis: ESSENTIAL HYPERTENSION[ICD9: 401.9] Diagnosis: Insulin dependent diabetes mellitus[ICD9: 250.00] Karmen Ash MD, [facility] CPT-4: 55532 12/23/2014 ([id number]) OFFICE [facility] - LEVEL 4 Diagnosis: Insulin dependent diabetes mellitus[ICD9: 250.00] Diagnosis: BPPV (benign paroxysmal positional vertigo)[ICD9: 386.11] Diagnosis: COPD (chronic obstructive pulmonary disease)[ICD9: 496] Diagnosis: Tobacco abuse[ICD9: 305.1] Diagnosis: Osteoarthritis[ICD9: 715.90] Karmen Ash MD, [facility] CPT- 4: 90753 12/09/2014 Plan of Care Planned Activity Notes C odes Status Date Patient Education: Patient Medication Summary Completed 02/16/2019 [...] as directed 12/02/2018 Appointment: Karmen Espinal WPtel: [address] [place], [place] [phone] (30 min) Complex 12/02/2018 Patient Education: Patient Medication Summary Completed 12/02/2018 Patient Education: Diabetes Completed 12/02/2018 Appointment: Injection 11/18/2018 Patient Education: Patient Medication Summary Completed 11/18/2018 Appointment: Injection 11/04/2018 Patient Education: Patient Medication Summary Completed 11/04/2018 [facility]ment[facility] [phone] [phone] (30 min) Complex 10/21/2018 Visit Plan: [...] walker 10/17/2018 Appointment: [facility]inal [facility] [phone] [phone] (30 min) Complex 10/17/2018 Patient Education: [...] medications. 09/02/2018 Appointment: [facility]inal [facility] [phone] [phone] (15 min) Moderate 09/02/2018 Patient Education: [...] surrogate. 06/30/2018 Appointment: [facility] Espinal [facility]el[facility] [phone] [phone] [facility] - Annual Wellness Visit 06/30/2018 [...] pain. 06/06/2018 Appointment: [facility] Espinal [facility]el[facility] [phone] [phone] (15 min) Moderate 06/06/2018 Patient Education: [...] 2 months 04/04/2018 Appointment: Karmen Espinal WPtel: [facility] [place] [address] (15 min) Moderate 04/04/2018 Patient Education: Patient Medication Summary Completed 04/04/2018 Care Plan: Cbc With Differential Pending 04/04/2018 Care Plan: Testosterone repeat in 2 months Pending 04/04/2018 Appointment: Karmen Espinal WPtel: [phone] [place] (15 min) Moderate 03/25/2018 Visit Plan: Low back pain -history of kidney stone-UA negative today -increase fluids and call if pain does not resolve or if any worse. 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 01/30/2018 Appointment: Karmen Espinal WPtel: [phone] (15 min) Moderate 01/30/2018 Patient Education: Patient Medication Summary Completed 01/30/2018 Appointment: Karmen Espinal WPtel: [facility] [address] (15 min) Moderate 01/28/2018 Appointment: Injection 01/17/2018 Patient Education: Patient Medication Summary Completed 01/17/2018 Visit Plan: Cellulitis - start oral antibiotics as directed, return to clinic as previously directed, call for acute change in symptoms, worsening redness, warmth, discharge. 01/14/2018 Appointment: Karmen Espinal WPtel: [facility] (10 min) Simple 01/14/2018 Patient Education: [...] less controlled. 01/13/2018 Appointment: Karmen Espinal WPtel: [address] [place] [address] (15 min) Moderate 01/13/2018 Patient Education: Patient Medication Summary Completed 01/13/2018 Referral: Hugo Villatoro HPtel:[phone] Patient's informed. Referral info ned monroy. Completed 12/04/2017 Visit Plan: Diabetes Mellitus - izzy eugenie - per recent FSBS reports. I [...] change in blood pressure readings at home. Wunvphgo-tvasud-wpuwr to see Dr Villatoro Constipation-start linzess daily 11/19/2017 Appointment: Karmen Espinal WPtel: [phone] (30 min) Complex 11/19/2017 Patient Education: Patient Medication Summary Completed 11/19/2017 Care Plan: Referral Order bloating, nausea SNOMED-CT : 796516208 Pending 11/19/2017 Visit Plan: Low back pain- [...] changes. 10/02/2017 Appointment: Brunilda Maravilla WPtel[facility] [phone] [facility] (15 min) Moderate 10/02/2017 Patient Education: [...] controlled. 07/23/2017 Appointment: K[facility] Espinal WPtel[facility] [phone] [phone] (30 min) Complex 07/23/2017 Patient Education: [...] history 04/25/2017 Appointment: Karm[facility] Espinal WPtel[facility] [phone] [phone] (30 min) Complex 04/25/2017 Patient Education: [...] readings are starting to become less controlled. Ndssmc-ayrntay-oawtl labs 02/19/2017 Appointment: Karmen Espinal WPtel[facility] [phone] [phone] (30 min) Complex 02/19/2017 Patient Education: [...] 1 month 01/21/2017 Appointment: Karmen Espinal WPtel: [phone] [phone] (30 min) Complex 01/21/2017 Patient Education: Patient Medication Summary Completed 01/21/2017 Patient Education: Smoking and Tobacco Addiction Completed 01/21/2017 Patient Education: Hypertension Completed 01/21/2017 Care Plan: Referral Order SNOMED-CT : [id number] Pending 01/21/2017 Visit Plan: Diabetes Mellitus - [...] changes. 12/20/2016 Appointment: Karmen Espinal WPtel: [phone] [phone] (30 min) Complex 12/20/2016 Patient Education: Patient Medication Summary Completed 12/20/2016 Patient Education: Smoking and Tobacco Addiction Completed 12/20/2016 Patient Education: Hypertension Completed 12/20/2016 Appointment: Karmen Espinal WPtel: [phone] [phone] (30 min) Complex 09/06/2016 Visit Plan: Diabetes [...] d deficiency-check vitamin d level 08/23/2016 Appointment: Teddy Karmen WPtel: [phone] [phone] (30 min) Complex 08/23/2016 Patient Education: [...] acute changes. 05/22/2016 Appointment: Karmen Espinal WPtel: [address] [place], [place] [phone] (30 min) Complex 05/22/2016 Patient Education: Patient Medication Summary Completed 05/22/2016 Patient Education: Smoking and Tobacco Addiction Completed 05/22/2016 Care Plan: Cbc With Differential Ordered 05/22/2016 Care Plan: %Hba1C LOIN C : 16160-7 Ordered 05/22/2016 Care Plan: Tsh Ordered 05/22/2016 [...] with update 02/24/2016 Appointment: Karmen Espinal WPtel: [address] [place], [place] [phone] (30 min) [facility] 02/24/2016 Patient Education: Patient Medication Summary Completed [...] this regimen. 01/27/2016 Appointment: Karmen Espinal WPtel: [address] [place] [phone] (30 min) Complex 01/27/2016 Patient Education: Patient [...] use medication to assist cessation. 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 Lzxsaken-qwxnsebd-ONYD SIMVASTATIN X 2 WEEKS AND CALL WITH [...] Care Plan: COMPLETE CBC AUTOMATED LOINC : 11289-6 Ordered 03/24/2015 Visit Plan: Diabetes Mellitus - [...] for removal. 03/07/2015 Appointment: Violeta Ash WPtel: [address] [place], [place] [address] [place] (15 min) Moderate 03/07/2015 Patient Education: Patient [...] hearing. The wax was [facility] ctitioner due to the wax being [...] Care Plan: COMPLETE CBC AUTOMATED LOINC : 32889-2 Ordered 12/23/2014 Visit Plan: BPPV - Benign [...] appt 12/09/2014 Appointment: Karmen Espinal WPtel[facility] [phone] [phone] [place] ([place] New Patient 12/09/2014 Patient Education: Patient Medication Summary Completed 12/09/2014 Patient Education: .Amazing charts Parox ysmal positional vertigo Completed 12/09/2014 Patient Education: Smoking and Tobacco Addiction Completed 12/09/2014 Referral: Hugo Villatoro HPtel:[phone] [facility] Referral Appointment Requested Referral: Luis Donohue Referral [...] readings are starting to become less controlled. Olfkql-vnsmvwd-czlgb labs . Cellulitis - start oral antibiotics [...] change in blood pressure readings at home. Nkotaqme-glxwft-fqsyy to see Dr Villatoro Constipation-start linzess daily [...] POTENTIAL SIDE EFFECTS AND WORSENING OF SYMPTOMS. Fyhvvtmm-bqmrazdq-[id number] SIMVASTATIN X 2 WEEKS AND CALL WITH [...] to assure normal liver response to medications. flu/prevnar . Hypertension - well controlled - [...]
--- OUTSIDE RECORDS SUMMARY | 2020-03-29 07:53 | XMS REPORT | CCD ---
Author Author Dick Espinal Organization Violeta Ash MD, [facility] Address [address] [place] [address] Phone Care Team Providers Care [employer] Rep[employer]r Name Role Phone PP Unavailable CCM Unavailable Summary Purpose Interface Exchange Insurance Providers Payer name Policy type / Coverage type Covered libertarian ID Effective Begin Date Effective End Date WPS Medicare Part B Medicare Part B [id number] Unknown Unknown [employer] Co Medicar e Part B [id number] Unknown Unkn own Family history Father Diagnosis Age At Onset Cancer Unknown Mother Diagnosis Age At Onset Cancer Unknown Social History Social History Element Codes Description Effective Dates Marital status Unknown M arried 12/09/2014 Employment Unknown Retir ed 12/09/[address]: 11329379 Currently smokes tobacco 12/09/2014 Number of years using tobacco Unknown > 50 12/09/2014 Number of cigarettes/day Unknown 30 (Pack and a half) 12/09/[address]: 938766668 Never drinks alcohol 12/09/2014 Allergies, Adverse Reactions, [...] 5 mg-linh taminophen 325 mg tablet RxNorm: 184948 1 Tablet(s) PO Q6-8H as needed 02/16/2019 03/12/2019 Active Protonix 40 mg table t,delayed release RxNorm: 532535 TAKE 1 TABLET BY MOUT H DAILY 02/02/2019 01/27/2020 Ac tive - Ref: [id number] simvastatin 40 mg ta blet RxNorm: 184206 TAKE 1 TABLET BY MOUT H DAILY AT BEDTIME 02/02/2019 01/27/2020 Ac tive - Ref: [id number] testosterone cypiona te 200 mg/mL intramuscular oil RxNorm: 9045369 Milliliter(s) IM 01/30/2019 01/30/2019 In active testosterone cypiona te 200 mg/mL intramuscular oil RxNorm: 2781898 1/2 Milliliter(s) IM [id number] 01/16/2019 05/15/2019 Active testosterone cypiona te 200 mg/mL intramuscular oil RxNorm: 6895424 Milliliter(s) IM 01/16/2019 01/16/2019 In active hydrocodone 5 mg-linh taminophen 325 mg tablet RxNorm: 613502 1 Tablet(s) PO Q6-8H as needed 01/14/2019 02/07/2019 Inactive testosterone cypiona te 200 mg/mL intramuscular oil RxNorm: 5376005 Milliliter(s) IM 01/01/2019 01/01/2019 In active Xanax 0.5 mg tablet RxNorm: 014173 1 Tablet(s) PO TID 12/18/2018 02/15/2019 Inactive testosterone cypiona te 200 mg/mL intramuscular oil RxNorm: 1639769 Milliliter(s) IM 12/17/2018 12/17/2018 In active hydrocodone 5 mg-linh taminophen 325 mg tablet RxNorm: 271407 1 Tablet(s) PO Q6-8H as needed 12/15/2018 01/08/2019 Inactive testosterone cypiona te 200 mg/mL intramuscular oil RxNorm: 0427996 Milliliter(s) IM 12/02/2018 12/02/2018 In active testosterone cypiona te 200 mg/mL intramuscular oil RxNorm: 1896701 Milliliter(s) IM 11/18/2018 11/18/2018 In active hydrocodone 5 mg-linh taminophen 325 mg tablet RxNorm: 055852 1 Tablet(s) PO Q6-8H as needed 11/13/2018 12/07/2018 Inactive testosterone cypiona te 200 mg/mL intramuscular oil RxNorm: 7020103 1/2 Milliliter(s) IM [id number] 11/04/2018 01/15/2019 Inactive testosterone cypiona te 200 mg/mL intramuscular oil RxNorm: 0669014 Milliliter(s) IM 11/04/2018 11/04/2018 In active nicotine 21 mg/24 hr daily transdermal patch RxNorm: 666199 1 TD daily 10/31/2018 10/30/2018 In active nicotine 21 mg/24 hr daily transdermal patch RxNorm: 427863 1 TD daily 10/31/2018 11/29/2018 In active meclizine 25 mg tablet RxNorm: 960491 1 Tablet(s) PO Q6 PRN TAKE ONE TABLET BY MOUTH EVERY 6 HOURS NEEDED 10/17/2018 01/14/2019 Inactive hydrocodone 5 mg-linh taminophen 325 mg tablet RxNorm: 036940 1 Tablet(s) PO Q6-8H as needed 10/17/2018 11/10/2018 Inactive metformin 500 mg tablet RxNorm: 011575 Tablet(s) TAKE 1 TABLET BY MOUTH DAILY 10/15/2018 10/09/2019 Ac tive lisinopril 10 mg tablet RxNorm: 278155 TAKE 1 TABLET BY MOUTH TWO TIMES DAILY 10/15/2018 10/09/2019 Ac tive - First Attempt Ref: [id number] testosterone cypiona te 200 mg/mL intramuscular oil RxNorm: 8188619 Milliliter(s) IM 10/14/2018 10/14/2018 In active Xanax 0.5 mg tablet RxNorm: 692292 1 Tablet(s) PO TID 10/03/2018 11/30/2018 Inactive testosterone cypiona te 200 mg/mL intramuscular oil RxNorm: 5069207 1/2 Milliliter(s) IM weekly 10/03/2018 11/03/2018 Inactive testosterone cypiona te 200 mg/mL intramuscular oil RxNorm: 1960736 Milliliter(s) IM 10/03/2018 10/03/2018 In active testosterone cypiona te 200 mg/mL intramuscular oil RxNorm: 3276420 Milliliter(s) IM 09/23/2018 09/23/2018 In active hydrocodone 5 mg-linh taminophen 325 mg tablet RxNorm: 881200 1 Tablet(s) PO Q6-8H as needed 09/22/2018 10/16/2018 Inactive testosterone cypiona te 200 mg/mL intramuscular oil RxNorm: 1784090 1/2 Milliliter(s) IM 09/02/2018 09/02/2018 Inactive testosterone enantha te 200 mg/mL intramuscular oil RxNorm: 347864 Milliliter(s) IM 08/21/2018 08/21/2018 In active hydrocodone 5 mg-linh taminophen 325 mg tablet RxNorm: 709953 1 Tablet(s) PO Q6-8H as needed 08/21/2018 09/14/2018 Inactive testosterone cypiona te 200 mg/mL intramuscular oil RxNorm: 9406841 Milliliter(s) IM 08/08/2018 08/08/2018 In active testosterone cypiona te 200 mg/mL intramuscular oil RxNorm: 7041468 1/2 Milliliter(s) IM 07/28/2018 07/28/2018 Inactive hydrocodone 5 mg-linh taminophen 325 mg tablet RxNorm: 987462 1 Tablet(s) PO Q6-8H as needed 07/21/2018 08/14/2018 Inactive testosterone cypiona te 200 mg/mL intramuscular oil RxNorm: 120423 Milliliter(s) IM 07/16/2018 07/16/2018 In active testosterone cypiona te 200 mg/mL intramuscular oil RxNorm: 108774 Milliliter(s) IM 07/02/2018 07/02/2018 In active Xanax 0.5 mg tablet RxNorm: 165353 1 Tablet(s) PO TID 06/27/2018 08/24/2018 Inactive testosterone cypiona te 200 mg/mL intramuscular oil RxNorm: 537966 Milliliter(s) IM 06/24/2018 06/24/2018 In active hydrocodone 5 mg-linh taminophen 325 mg tablet RxNorm: 293125 1 Tablet(s) PO Q6-8H as needed 06/23/2018 07/17/2018 Inactive testosterone cypiona te 200 mg/mL intramuscular oil RxNorm: 472694 Milliliter(s) IM 06/13/2018 06/13/2018 In active testosterone cypiona te 200 mg/mL intramuscular oil RxNorm: 377995 Milliliter(s) IM 06/05/2018 06/05/2018 In active testosterone cypiona te 200 mg/mL intramuscular oil RxNorm: 4686883 1/2 Milliliter(s) IM weekly 05/30/2018 09/26/2018 Inactive testosterone cypiona te 200 mg/mL intramuscular oil RxNorm: 930477 Milliliter(s) IM 05/30/2018 05/30/2018 In active testosterone cypiona te 200 mg/mL intramuscular oil RxNorm: 276116 Milliliter(s) IM 05/22/2018 05/22/2018 In active hydrocodone 5 mg-linh taminophen 325 mg tablet RxNorm: 835714 1 Tablet(s) PO Q6-8H as needed 05/20/2018 06/13/2018 Inactive testosterone cypiona te 200 mg/mL intramuscular oil RxNorm: 504073 1/2 Milliliter(s) IM 05/12/2018 05/12/2018 Inactive testosterone cypiona te 200 mg/mL intramuscular oil RxNorm: 465891 Milliliter(s) IM 05/02/2018 05/02/2018 In active testosterone cypiona te 200 mg/mL intramuscular oil RxNorm: 383121 1/2 Milliliter(s) IM weekly 04/24/2018 05/29/2018 Inactive testosterone cypiona te 200 mg/mL intramuscular oil RxNorm: 171406 0.5 Milliliter(s) IM 04/24/2018 04/24/2018 Inactive hydrocodone 5 mg-linh taminophen 325 mg tablet RxNorm: 311069 1 Tablet(s) PO Q6-8H as needed 04/22/2018 05/16/2018 Inactive testosterone cypiona te 200 mg/mL intramuscular oil RxNorm: 612549 1/2 Milliliter(s) IM 04/17/2018 04/17/2018 Inactive testosterone cypiona te 200 mg/mL intramuscular oil RxNorm: 993828 1/2 Milliliter(s) IM weekly 04/16/2018 04/23/2018 Inactive Jardiance 10 mg tablet RxNorm: 1634960 1 Tablet(s) PO daily 04/04/2018 12/29/2018 Inactive testosterone cypiona te 200 mg/mL intramuscular oil RxNorm: 504199 1 Milliliter(s) IM monthly 04/04/2018 04/15/2018 Inactive Protonix 40 mg table t,delayed release RxNorm: 558888 1 Tablet(s) PO daily TAKE 1 TABLET BY MOUTH DAILY 04/04/2018 02/01/2019 Inactive - Ref: [id number] hydrocodone 5 mg-linh taminophen 325 mg tablet RxNorm: 440904 1 Tablet(s) PO Q6-8H as needed 03/19/2018 04/12/2018 Inactive Flomax 0.4 mg capsule RxNorm: 827825 1 Capsule(s) PO daily 03/10/2018 03/04/2019 Active Urecholine 25 mg tablet RxNorm: 656131 1 Tablet(s) PO BID 03/10/2018 07/07/2018 Inactive ketorolac 60 mg/2 mL intramuscular solution RxNorm: 4632530 Milliliter(s) IM 03/07/2018 03/07/2018 In active metformin 500 mg tablet RxNorm: 621823 Tablet(s) TAKE 1 TABLET BY MOUTH DAILY 02/20/2018 02/13/2019 In active 1 q am and 1/2 tab q pm hydrocodone 5 mg-linh taminophen 325 mg tablet RxNorm: 299068 1 Tablet(s) PO Q6-8H as needed 02/20/2018 03/16/2018 Inactive Kenalog 40 mg/mL bartolome pension for injection RxNorm: 5010537 1.5 Milliliter(s) In j 01/30/2018 01/30/2018 In active hydrocodone 5 mg-linh taminophen 325 mg tablet RxNorm: 409113 1 Tablet(s) PO Q6-8H as needed 01/23/2018 02/16/2018 Inactive Urecholine 25 mg tablet RxNorm: 643769 1 Tablet(s) PO BID 01/22/2018 03/09/2018 Inactive Flomax 0.4 mg capsule RxNorm: 090075 1 Capsule(s) PO daily 01/22/2018 03/09/2018 Inactive Flomax 0.4 mg capsule RxNorm: 590023 1 Capsule(s) PO daily 01/22/2018 01/21/2018 Inactive Urecholine 25 mg tablet RxNorm: 214119 1 Tablet(s) PO BID 01/22/2018 01/21/2018 Inactive testosterone cypiona te 200 mg/mL intramuscular oil RxNorm: 662396 Milliliter(s) IM 01/17/2018 01/17/2018 In active testosterone cypiona te 200 mg/mL intramuscular oil RxNorm: 537505 1 Milliliter(s) IM monthly 01/17/2018 04/03/2018 Inactive doxycycline hyclate 100 mg tablet RxNorm: 220993 1 Tablet(s) PO BID 01/14/2018 01/23/2018 Inactive lisinopril 10 mg tablet RxNorm: 194948 TAKE 1 TABLET BY MOUTH TWO TIMES DAILY 01/14/2018 10/14/2018 In active - First Attempt Ref: [id number] nystatin 100,000 uni t/mL oral suspension RxNorm: 319703 4 Milliliter(s) PO QI D Swish and swallow 01/08/2018 01/07/2018 Inactive nystatin 100,000 uni t/mL oral suspension RxNorm: 696065 4 Milliliter(s) PO QI D Swish and swallow 01/08/2018 01/12/2018 Inactive Xanax 0.5 mg tablet RxNorm: 152300 1 Tablet(s) PO TID 01/08/2018 12/23/2018 Inactive simvastatin 40 mg ta blet RxNorm: 192838 TAKE 1 TABLET BY MOUT H DAILY AT BEDTIME 12/30/2017 12/24/2018 In active - First Attempt Ref: [id number] metformin 500 mg tablet RxNorm: 871089 TAKE 1 TABLET BY MOUTH DAILY 12/30/2017 02/19/2018 Inactive - First Attempt Ref: [id number] hydrocodone 5 mg-linh taminophen 325 mg tablet RxNorm: 147778 1 Tablet(s) PO Q6-8H as needed 12/25/2017 01/18/2018 Inactive Protonix 40 mg table t,delayed release RxNorm: 889072 Tablet(s) TAKE 1 TABL ET BY MOUTH DAILY 11/20/2017 04/03/2018 Inactive - Ref: [id number] Linzess 72 mcg capsule RxNorm: 5329641 1 Capsule(s) PO daily 11/19/2017 No Stop Date Active hydrocodone 5 mg-linh taminophen 325 mg tablet RxNorm: 873915 1 Tablet(s) PO Q6-8H as needed 11/19/2017 12/13/2017 Inactive hydrocodone 5 mg-linh taminophen 325 mg tablet RxNorm: 298585 1 Tablet(s) PO Q6-8H as needed 10/28/2017 11/18/2017 Inactive Xanax 0.5 mg tablet RxNorm: 194558 1 Tablet(s) PO TID 10/25/2017 12/22/2017 Inactive Xanax 0.5 mg tablet RxNorm: 737043 TAKE ONE TABLET BY MOUTH THREE TIMES A D AY 10/24/2017 12/01/2018 In active hydrocodone 5 mg-linh taminophen 325 mg tablet RxNorm: 694709 1 Tablet(s) PO Q6-8H as needed 09/30/2017 10/24/2017 Inactive Protonix 40 mg table t,delayed release RxNorm: 685269 TAKE 1 TABLET BY MOUT H DAILY 09/16/2017 11/19/2017 In active - Ref: [id number] Yovana SolLisy 300 unit/mL (1.5 mL) subcutaneous insulin pen RxNorm: 2069460 35 Unit(s) SQ QHS 08/30/2017 No Stop Date Active dosage increase hydrocodone 5 mg-linh taminophen 325 mg tablet RxNorm: 953716 1 Tablet(s) PO Q6-8H as needed 08/28/2017 09/29/2017 Inactive hydrocodone 5 mg-linh taminophen 325 mg tablet RxNorm: 807492 1 Tablet(s) PO Q6-8H as needed 07/23/2017 08/24/2017 Inactive lisinopril 10 mg tablet RxNorm: 748055 1 Tablet(s) PO BID Take 1 tablet by mout h daily 07/23/2017 01/13/2018 Inactive hydrocodone 5 mg-linh taminophen 325 mg tablet RxNorm: 793930 1 Tablet(s) PO Q6-8H as needed 06/27/2017 07/22/2017 Inactive Xanax 0.5 mg tablet RxNorm: 504584 1 Tablet(s) PO TID 06/18/2017 10/25/2017 Inactive hydrocodone 5 mg-linh taminophen 325 mg tablet RxNorm: 162968 1 Tablet(s) PO Q6-8H as needed 05/27/2017 06/26/2017 Inactive Levaquin 500 mg tablet RxNorm: 558095 1 Tablet(s) PO daily 05/24/2017 05/23/2017 Inactive Levaquin 500 mg tablet RxNorm: 912635 1 Tablet(s) PO daily 05/24/2017 05/30/2017 Inactive Protonix 40 mg table t,delayed release RxNorm: 353592 Take 1 tablet by mout h daily 04/29/2017 09/15/2017 In active - Ref: [id number] hydrocodone 5 mg-linh taminophen 325 mg tablet RxNorm: 568857 1 Tablet(s) PO Q6-8H as needed 04/25/2017 05/26/2017 Inactive metformin 500 mg tablet RxNorm: 847581 Take 1 tablet by mouth daily 04/08/2017 12/29/2017 Inactive - First Attempt Ref: [id number] hydrocodone 5 mg-linh taminophen 325 mg tablet RxNorm: 811919 1 Tablet(s) PO Q6-8H as needed 03/27/2017 04/24/2017 Inactive hydrocodone 5 mg-linh taminophen 325 mg tablet RxNorm: 229462 1 Tablet(s) PO Q6-8H as needed 02/25/2017 03/26/2017 Inactive Protonix 40 mg table t,delayed release RxNorm: 939325 Tablet(s) Take 1 tabl et by mouth BID 02/25/2017 04/28/2017 Inactive Protonix 40 mg table t,delayed release RxNorm: 323303 Tablet(s) Take 1 tabl et by mouth BID 02/19/2017 02/18/2017 Inactive Protonix 40 mg table t,delayed release RxNorm: 359083 Tablet(s) Take 1 tabl et by mouth BID 02/19/2017 02/24/2017 Inactive lisinopril 10 mg tablet RxNorm: 922873 Take 1 tablet by mouth daily 01/29/2017 07/22/2017 Inactive - First Attempt Ref: [id number] hydrocodone 5 mg-linh taminophen 325 mg tablet RxNorm: 071037 1 Tablet(s) PO Q6-8H as needed 01/25/2017 02/24/2017 Inactive simvastatin 40 mg ta blet RxNorm: 270184 Tablet(s) Take 1 tabl et by mouth daily at bedtime 01/03/2017 12/28/2017 Inactive lisinopril 10 mg tablet RxNorm: 484361 Tablet(s) Take 1 tablet by mouth daily 01/03/2017 01/28/2017 In active Protonix 40 mg table t,delayed release RxNorm: 894604 Tablet(s) Take 1 tabl et by mouth daily 12/28/2016 02/18/2017 Inactive hydrocodone 5 mg-linh taminophen 325 mg tablet RxNorm: 538012 1 Tablet(s) PO Q6-8H as needed 12/26/2016 01/24/2017 Inactive Xanax 0.5 mg tablet RxNorm: 097058 1 Tablet(s) PO TID 12/12/2016 03/11/2017 Inactive simvastatin 40 mg ta blet RxNorm: 092906 Tablet(s) Take 1 tabl et by mouth daily at bedtime 11/30/2016 01/02/2017 Inactive simvastatin 40 mg ta blet RxNorm: 416246 Take 1 tablet by mout h daily at bedtime 11/29/2016 11/29/2016 In active - First Attempt Ref: [id number] Protonix 40 mg table t,delayed release RxNorm: 705728 Take 1 tablet by mout h daily 11/27/2016 12/27/2016 In active - First Attempt Ref: [id number] hydrocodone 5 mg-linh taminophen 325 mg tablet RxNorm: 350418 1 Tablet(s) PO Q6-8H as needed 11/26/2016 12/25/2016 Inactive hydrocodone 5 mg-linh taminophen 325 mg tablet RxNorm: 181489 1 Tablet(s) PO Q8 as needed 10/24/2016 11/25/2016 Inactive Xanax 0.5 mg tablet RxNorm: 387055 1 Tablet(s) PO TID 10/09/2016 12/25/2016 Inactive hydrocodone 5 mg-linh taminophen 325 mg tablet RxNorm: 963996 1 Tablet(s) PO Q8 as needed 09/27/2016 10/23/2016 Inactive lisinopril 10 mg tablet RxNorm: 702507 Take 1 tablet by mouth daily 09/25/2016 01/02/2017 Inactive - First Attempt Ref: [id number] Vitamin D2 50,000 un it capsule RxNorm: 523802 1 Capsule(s) PO QW 09/06/2016 12/01/2018 Inactive hydrocodone 5 mg-linh taminophen 325 mg tablet RxNorm: 123049 1 Tablet(s) PO Q8 as needed 08/28/2016 09/26/2016 Inactive Toujeo SoloStar 300 unit/mL (1.5 mL) subcutaneous insulin pen RxNorm: 7179345 25 Unit(s) SQ QHS 08/23/2016 08/29/2017 Inactive dosage increase hydrocodone 5 mg-linh taminophen 325 mg tablet RxNorm: 741050 1 Tablet(s) PO Q8 as needed 07/26/2016 08/27/2016 Inactive Protonix 40 mg table t,delayed release RxNorm: 147042 Take 1 tablet by mout h daily 07/24/2016 11/26/2016 In active - First Attempt Ref: [id number] hydrocodone 5 mg-linh taminophen 325 mg tablet RxNorm: 833888 1 Tablet(s) PO Q8 as needed 06/19/2016 07/21/2016 Inactive Toujeo SoloStar 300 unit/mL (1.5 mL) subcutaneous insulin pen RxNorm: 3839037 32 Unit(s) SQ QHS 05/30/2016 08/22/2016 Inactive dosage increase hydrocodone 5 mg-linh taminophen 325 mg tablet RxNorm: 372930 1 Tablet(s) PO Q8 as needed 05/22/2016 06/18/2016 Inactive hydrocodone 5 mg-linh taminophen 325 mg tablet RxNorm: 907242 1 Tablet(s) PO Q8 as needed 04/18/2016 05/17/2016 Inactive Protonix 40 mg table t,delayed release RxNorm: 909735 Take 1 tablet by mout h daily 04/05/2016 07/03/2016 In active - Ref: [id number] metformin 500 mg tablet RxNorm: 440965 Take 1 tablet by mouth daily 04/04/2016 07/02/2016 Inactive - Ref: [id number] Xanax 0.5 mg tablet RxNorm: 428904 1 Tablet(s) PO TID 03/30/2016 09/25/2016 Inactive Xanax 0.5 mg tablet RxNorm: 966703 1 Tablet(s) PO TID 03/23/2016 12/25/2016 Inactive hydrocodone 5 mg-linh taminophen 325 mg tablet RxNorm: 828511 1 Tablet(s) PO Q8 as needed 03/06/2016 04/04/2016 Inactive Cipro 500 mg tablet RxNorm: 851858 1 Tablet(s) PO BID 02/24/2016 03/04/2016 Inactive Miralax 17 gram oral powder packet RxNorm: 043023 1 packet PO every oth er day 01/27/2016 No Stop Date Active hydrocodone 5 mg-linh taminophen 325 mg tablet RxNorm: 707159 1 Tablet(s) PO Q8 as needed 01/27/2016 02/25/2016 Inactive lisinopril 10 mg tablet RxNorm: 333495 1 Tablet(s) PO daily 01/12/2016 09/24/2016 Inactive simvastatin 40 mg ta blet RxNorm: 058393 1 Tablet(s) PO QHS 01/12/2016 11/28/2016 Inactive simvastatin 40 mg ta blet RxNorm: 346903 1 Tablet(s) PO QHS 01/11/2016 01/11/2016 Inactive lisinopril 10 mg tablet RxNorm: 552191 1 Tablet(s) PO daily 01/06/2016 01/11/2016 Inactive simvastatin 40 mg ta blet RxNorm: 401050 1 Tablet(s) PO daily 12/28/2015 01/10/2016 Inactive hydrocodone 5 mg-linh taminophen 325 mg tablet RxNorm: 804543 1 Tablet(s) PO Q8 as needed 12/27/2015 01/26/2016 Inactive Xanax 0.5 mg tablet RxNorm: 738866 1 Tablet(s) PO TID 11/30/2015 03/29/2016 Inactive Toujeo SoloStar 300 unit/mL (1.5 mL) subcutaneous insulin pen RxNorm: 0339231 30 Unit(s) SQ QHS 11/25/2015 05/29/2016 Inactive dosage increase meclizine 25 mg tablet RxNorm: 486960 1 Tablet(s) PO Q6 PRN TAKE ONE TABLET BY MOUTH EVERY 6 HOURS NEEDED 11/25/2015 02/22/2016 Inactive omeprazole 20 mg cap jacquelyn,delayed release RxNorm: 744224 1 Capsule(s) PO daily 10/06/2015 01/26/2016 In active Toujeo SoloStar 300 unit/mL (1.5 mL) subcutaneous insulin pen RxNorm: 2590489 35 Unit(s) SQ QHS 08/02/2015 11/24/2015 Inactive dosage increase Vitamin D2 50,000 un it capsule RxNorm: 887320 1 Capsule(s) PO QW 08/02/2015 09/05/2016 Inactive hydrocodone 5 mg-linh taminophen 325 mg tablet RxNorm: 202474 1 Tablet(s) PO Q8 as needed 07/11/2015 12/26/2015 Inactive Xanax 0.5 mg tablet RxNorm: 515051 1 Tablet(s) PO TID 06/30/2015 06/29/2015 Inactive Xanax 0.5 mg tablet RxNorm: 060440 1 Tablet(s) PO TID 06/30/2015 12/25/2015 Inactive hydrocodone 5 mg-linh taminophen 325 mg tablet RxNorm: 011678 1 Tablet(s) PO Q8 as needed 05/06/2015 07/10/2015 Inactive Symbicort 160 mcg-4. 5 mcg/actuation HFA aerosol inhaler RxNorm: 9751092 INH 04/25/2015 No Stop Date Active Levemir FlexTouch 10 0 unit/mL (3 mL) subcutaneous insulin pen RxNorm: 944632 30 Unit(s) SQ QHS 04/25/2015 11/24/2015 Inactive prednisone 20 mg tablet RxNorm: 851726 1 Tablet(s) PO BID 04/25/2015 04/29/2015 Inactive metformin 500 mg tablet RxNorm: 495735 1 Tablet(s) PO daily 04/25/2015 04/03/2016 Inactive amoxicillin 500 mg c apsule RxNorm: 663011 1 Capsule(s) PO TID 04/14/2015 04/13/2015 Inactive amoxicillin 500 mg c apsule RxNorm: 921313 1 Capsule(s) PO TID a nd recommend probiotic tid (otc) 04/14/2015 04/20/2015 Inactive Kenalog 40 mg/mL bartolome pension for injection RxNorm: 0086926 Milliliter(s) Inj 04/12/2015 04/12/2015 In active hydrocodone 5 mg-linh taminophen 325 mg tablet RxNorm: 717484 1 Tablet(s) PO Q8 as needed 03/30/2015 05/05/2015 Inactive Lantus 100 unit/mL s ubcutaneous solution RxNorm: 462777 25 Unit(s) SQ QPM 03/24/2015 04/25/2015 In active meclizine 25 mg tablet RxNorm: 510071 Tablet(s) TAKE ONE TABLET BY MOUTH EVERY 6 HOURS NEEDED 03/08/2015 04/06/2015 Inactive meclizine 25 mg tablet RxNorm: 108148 TAKE ONE TABLET BY MOUTH EVERY 6 HOURS A S NEEDED 02/25/2015 03/03/2015 Inactive Lantus 100 unit/mL s ubcutaneous solution RxNorm: 398533 20 Unit(s) SQ QPM 02/23/2015 03/23/2015 In active Lantus 100 unit/mL s ubcutaneous solution RxNorm: 693394 25 Unit(s) SQ QPM 02/23/2015 02/22/2015 In active hydrocodone 5 mg-linh taminophen 325 mg tablet RxNorm: 148959 1 Tablet(s) PO Q8 as needed 02/17/2015 03/29/2015 Inactive Xanax 0.5 mg tablet RxNorm: 967849 1 Tablet(s) PO TID 02/03/2015 06/29/2015 Inactive Lantus 100 unit/mL s ubcutaneous solution RxNorm: 642656 20 Unit(s) SQ QPM 12/29/2014 02/22/2015 In active Phenergan 12.5 mg re ctal suppository RxNorm: 242959 1 Suppository RTL Q6 PRN 12/23/2014 No Stop Date Active nausea Kenalog 40 mg/mL bartolome pension for injection RxNorm: 7294501 Milliliter(s) Inj 12/23/2014 12/23/2014 In active prednisone 20 mg tablet RxNorm: 663710 2 Tablet(s) PO daily 12/13/2014 12/17/2014 Inactive prednisone 20 mg tablet RxNorm: 780057 2 Tablet(s) PO daily 12/13/2014 12/12/2014 Inactive meclizine 25 mg tablet RxNorm: 793577 1 Tablet(s) PO Q6 PRN 12/09/2014 02/24/2015 Inactive hydrocodone 5 mg-linh taminophen 325 mg tablet RxNorm: 221678 1 Tablet(s) PO Q8 as needed 12/09/2014 02/16/2015 Inactive Vitamin B-12 1,000 m cg/mL oral drops RxNorm: 6538704 1 Milliliter(s) PO d aily No Start Date Active Alphagan P 0.1 % eye drops RxNorm: 778931 1 Drop(s) OPH BID No Start Date Active aspirin 325 mg table t,delayed release RxNorm: 600831 1 Tablet(s) PO daily No Start Date Active Tricor 145 mg tablet RxNorm: 417078 1 Tablet(s) PO daily No Start Date Active vitamin [id number] B1 oral liquid RxNorm: 1,000 Microgram(s) PO daily No Start Date Active atenolol 50 mg tablet RxNorm: 012356 1 Tablet(s) PO daily No Start Date Active Protonix 40 mg table t,delayed release RxNorm: 820169 1 Tablet(s) PO daily No Start Date 04/04/2016 Inactive glipizide 10 mg tablet RxNorm: 985645 1 Tablet(s) PO BID No Start Date 03/22/2015 Inactive Lantus 100 unit/mL s ubcutaneous solution RxNorm: 096264 15 Unit(s) SQ QPM No Start Date 12/28/2014 Inactive lisinopril 10 mg tablet RxNorm: 426182 1 Tablet(s) PO daily No Start Date 01/05/2016 Inactive Vitamin D2 50,000 un it capsule RxNorm: 037093 1 Capsule(s) PO QW No Start Date 08/01/2015 Inactive Toujeo SoloStar 300 unit/mL (1.5 mL) subcutaneous insulin pen RxNorm: 8670198 30 Unit(s) SQ QHS No Start Date 08/01/2015 Inactive simvastatin 40 mg ta blet RxNorm: 897491 1 Tablet(s) PO daily No Start Date 12/27/2015 Inactive testosterone cypiona te 200 mg/mL intramuscular oil RxNorm: 036739 1 Milliliter(s) IM monthly No Start Date 01/16/2018 Inactive hydrocodone 5 mg-linh taminophen 325 mg tablet RxNorm: 151260 1 Tablet(s) PO Q8 as needed No Start Date 12/08/2014 Inactive metformin 500 mg tablet RxNorm: 581605 1 Tablet(s) PO daily No Start Date 04/24/2015 Inactive omeprazole 20 mg cap jacquelyn,delayed release RxNorm: 664332 1 Capsule(s) PO daily No Start Date 10/05/2015 Inactive Flomax 0.4 mg capsule RxNorm: 537059 1 Capsule(s) PO daily No Start Date 03/23/2015 Inactive Medication Administered Medication Codes Instruc tions Start Date Status testosterone cypionate 200 mg/mL intramuscular oil RxNorm: 7984970 Milliliter 01/30/2019 No longer Active testosterone cypionate 200 mg/mL intramuscular oil RxNorm: 2518503 Milliliter 01/16/2019 No longer Active testosterone cypionate 200 mg/mL intramuscular oil RxNorm: 1551225 Milliliter 01/01/2019 No longer Active testosterone cypionate 200 mg/mL intramuscular oil RxNorm: 7487718 Milliliter 12/17/2018 No longer Active testosterone cypionate 200 mg/mL intramuscular oil RxNorm: 6964774 Milliliter 12/02/2018 No longer Active testosterone cypionate 200 mg/mL intramuscular oil RxNorm: 8245030 Milliliter 11/18/2018 No longer Active testosterone cypionate 200 mg/mL intramuscular oil RxNorm: 3012846 Milliliter 11/04/2018 No longer Active testosterone cypionate 200 mg/mL intramuscular oil RxNorm: 0611485 Milliliter 10/14/2018 No longer Active testosterone cypionate 200 mg/mL intramuscular oil RxNorm: 4404564 Milliliter 10/03/2018 No longer Active testosterone cypionate 200 mg/mL intramuscular oil RxNorm: 6709200 Milliliter 09/23/2018 No longer Active testosterone cypionate 200 mg/mL intramuscular oil RxNorm: 9831848 /2Milliliter 09/02/2018 No longer Active testosterone enanthate 200 mg/mL intramuscular oil RxNorm: 235212 Milliliter 08/21/2018 No longer Active testosterone cypionate 200 mg/mL intramuscular oil RxNorm: 7529655 Milliliter 08/08/2018 No longer Active testosterone cypionate 200 mg/mL intramuscular oil RxNorm: 8414174 1/2Milliliter 07/28/2018 No longer Active testosterone cypionate 200 mg/mL intramuscular oil RxNorm: 959060 Milliliter 07/16/2018 No longer Active testosterone cypionate 200 mg/mL intramuscular oil RxNorm: 441346 Milliliter 07/02/2018 No longer Active testosterone cypionate 200 mg/mL intramuscular oil RxNorm: 740516 Milliliter 06/24/2018 No longer Active testosterone cypionate 200 mg/mL intramuscular oil RxNorm: 400212 Milliliter 06/13/2018 No longer Active testosterone cypionate 200 mg/mL intramuscular oil RxNorm: 142560 Milliliter 06/05/2018 No longer Active testosterone cypionate 200 mg/mL intramuscular oil RxNorm: 931337 Milliliter 05/30/2018 No longer Active testosterone cypionate 200 mg/mL intramuscular oil RxNorm: 658288 Milliliter 05/22/2018 No longer Active testosterone cypionate 200 mg/mL intramuscular oil RxNorm: 934237 /2Milliliter 05/12/2018 No longer Active testosterone cypionate 200 mg/mL intramuscular oil RxNorm: 417844 Milliliter 05/02/2018 No longer Active testosterone cypionate 200 mg/mL intramuscular oil RxNorm: 671253 0.5Milliliter 04/24/2018 No longer Active testosterone cypionate 200 mg/mL intramuscular oil RxNorm: 557353 /2Milliliter 04/17/2018 No longer Active ketorolac 60 mg/2 mL intramuscular solution RxNorm: 8884937 Milliliter 03/07/2018 No longer Active Kenalog 40 mg/mL suspension for injection RxNorm: 2540330 1.5Milliliter 01/30/2018 No longer Active testosterone cypionate 200 mg/mL intramuscular oil RxNorm: 892834 Milliliter 01/17/2018 No longer Active Kenalog 40 mg/mL suspension for injection RxNorm: 8302655 Milliliter 04/12/2015 No longer Active Kenalog 40 mg/mL suspension for injection RxNorm: 3663103 Milliliter 12/23/2014 No longer Active Immunizations Vaccine Codes Date Status Influenza CVX: 141 06/06 completed Influenza CVX: 141 04/25 completed Pneumococcal (Adult) CVX: 133 04/25/2017 completed Influenza CVX: 141 05/22 completed Assessments Condition Codes Effectiv e Dates Testicular dysfunction, unspecified ICD-10: E29.9 ICD-9: 257.9 01/30/2019 Chronic obstructive pulmonary disease, unspecified ICD-10: J44.9 ICD-9: 496 12/02/2018 Type 2 diabetes mellitus with hyperglycemia ICD-10: E11.65 ICD-9: 250.02 12/02/2018 Other insomnia ICD-10: G47.09 ICD-9: 327.09 [...] without complications ICD-10: E11.9 ICD-9: 250.00 06/06/2018 Encounter for immunization ICD-10: Z 23 ICD-9: V04.81 06/06/2018 Cellulitis of face ICD-10: L03.211 ICD-9: 682.0 06/06/2018 Dysuria ICD-10: R30.0 ICD-9: 788.1 03/07/2018 [...] Anemia, unspecified ICD-10: D64.9 ICD-9: 285.9 02/22/2017 Gastro-esophageal reflux disease without esophagitis ICD-10: K21.9 ICD-9: 530.81 01/21/2017 Slow transit constipation ICD-10: K5 9.01 ICD-9: 564.01 01/21/2017 Tobacco use ICD-10: Z72.0 ICD-9: 305.1 11/25/2015 DYSURIA ICD-9: 788.1 COPD (chronic obstructive pulmonary disease) ICD-9: 496 05/06/2015 Cough ICD-9: 786.2 05/06 DIABETES TYPE II ICD-9: 250.00 05/06/2015 ESSENTIAL HYPERTENSION ICD-9: 401.9 05/06/2015 Muscle ache ICD-9: 729.1 04/25/2015 ACUTE URI ICD-9: 465.9 0 04/12/2015 ACTINIC KERATOSIS ICD-9: 702.0 04/12/2015 Hypoglycemia ICD-9: 251.2 03/07/2015 Skin texture changes ICD-9: 782.8 03/07/2015 Unsteady gait ICD-9: 781.2 02/17/2015 Fatigue ICD-9: 780.79 Cerumen impaction ICD-9: 380.4 12/31/2014 BPPV (benign [...] 33.4 pg 12/02/2018 Cbc With Differential Ord2 Campbell% 8.0 % 12/02/2018 Cbc With Differential Ord2 [...] 2.13 K/ul 12/02/2018 Cbc With Differential Ord2 Campbell ABS# 0.6 K/ul 12/02/2018 Cbc With Differential Ord2 Eos ABS# 0.4 K/ul 12/02/2018 Cbc With Differential Ord2 Baso ABS# 0.0 K/ul 12/02/2018 Testosterone Zoq742 Testo 213.5 ng/dL 12/02/2018 A1C Frequency Uhr937 A1CF 69165-5 Last A1[place] performed [place] [facility] [place] [facility] [place]: 201812/02/2018 Testosterone Fso832 Testo 669.0 ng/dL 09/08/2018 %Hba1C Bwt471 % HbA1c 54490-8 7.4 % 09/08/2018 %Hba1C Qdx657 Gluc Ave 166 mg/dL 09/08/2018 Lipid Ord30 CHOL 114 mg/dL 09/08/2018 Lipid Ord30 HDL 28.0 mg/dl 09/08/2018 Lipid Ord30 TRIG 154 mg/dL 09/08/2018 Lipid Ord30 LDL 55 mg/dL 09/08/2018 Lipid Ord30 C/HDL 4.1 Ratio 09/08/2018 Comp Metabolic Qbr963 NA 137 mEq/L 09/08/2018 Comp Metabolic Tth666 K 4.3 mEq/L 09/08/2018 Comp Metabolic Vtq241 CL 100 mEq/L 09/08/2018 Comp Metabolic Udv839 CO2 27.0 mEq/L 09/08/2018 Comp Metabolic Ein351 AN ION GAP 14 09/08/2018 Comp Metabolic Ird222 GL UCOSE 85 mg/dL 09/08/2018 Comp Metabolic Nam484 Cr eat 1.1 mg/dL 09/08/2018 Comp Metabolic Bgn623 eG FR 70 ml/min/1.73m2 09/08 Comp Metabolic Lil274 BUN 11 mg/dL 09/08/2018 Comp Metabolic Ktp175 B/ C Ratio 10.3 Ratio 09/08/2018 Comp Metabolic Oec949 CA LCIUM 9.2 mg/dL 09/08/2018 Comp Metabolic Mwo676 AL K PHOS 65 U/L 09/08/2018 Comp Metabolic Kkw302 T(SGOT) 16 U/L 09/08/2018 Comp Metabolic Aig578 AL T(SGPT) 14 U/L 09/08/2018 Comp Metabolic Hlt673 BI LI T 0.6 mg/dL 09/08/2018 Comp Metabolic Azo730 AL BUMIN 4.0 g/dL 09/08/2018 Comp Metabolic Iuz123 TP RO 6.6 g/dL 09/08/2018 Comp Metabolic Yfi766 GL OB 2.6 g/dL 09/08/2018 Comp Metabolic Znd007 A/ G Ratio 1.6 Ratio 09/08/2018 Comp Metabolic Kwg447 Os mo 272 mOsmo 09/08/2018 Vitamin D 25 Oh Uhu2052 VITAMIN D, 25 HYDROXY 37.17 ng/mL 09/08/2018 [...] 97.9 fl 09/08/2018 Cbc With Differential Ord2 Campbell% 8.1 % 09/08/2018 Cbc With Differential Ord2 MCH 33.3 pg 09/08/2018 Cbc With Differential Ord2 MCHC 34.1 pg 09/08/2018 Cbc With Differential Ord2 Eos% 4.3 % 09/08/2018 Cbc With Differential Ord2 Baso% 0.3 % 09/08/2018 Cbc With Differential Ord2 PLT 197 K/ul 09/08/2018 Cbc With Differential Ord2 Neut ABS# 4.05 K/ul 09/08/2018 Cbc With Differential Ord2 RDW 16.0 % 09/08/2018 Cbc With Differential Ord2 Lymph ABS# 2.44 K/ul 09/08/2018 Cbc With Differential Ord2 Campbell ABS# 0.6 K/ul 09/08/2018 Cbc With Differential Ord2 Eos ABS# 0.3 K/ul 09/08/2018 Cbc With Differential Ord2 Baso ABS# 0.0 K/ul 09/08/2018 Tsh Ord6 TSH (3rd IS) 2.72 uIU/mL 09/08/2018 Comp Metabolic Saj844 NA 139 mEq/L 04/01/2018 Comp Metabolic Bxa180 K 4.2 mEq/L 04/01/2018 Comp Metabolic Asb441 CL 102 mEq/L 04/01/2018 Comp Metabolic Uwl721 CO2 29.0 mEq/L 04/01/2018 Comp Metabolic Jja379 AN ION GAP 12 04/01/2018 Comp Metabolic Djy099 GL UCOSE 87 mg/dL 04/01/2018 Comp Metabolic Gcx414 Cr eat 1.1 mg/dL 04/01/2018 Comp Metabolic Szm661 eG FR 70 ml/min/1.73m2 04/01 Comp Metabolic Ewi406 BUN 21 mg/dL 04/01/2018 Comp Metabolic Sqh169 B/ C Ratio 19.4 Ratio 04/01/2018 Comp Metabolic Wzt162 CA LCIUM 9.1 mg/dL 04/01/2018 Comp Metabolic Jgf121 AL K PHOS 60 U/L 04/01/2018 Comp Metabolic Cdw412 T(SGOT) 15 U/L 04/01/2018 Comp Metabolic Tcm233 AL T(SGPT) 18 U/L 04/01/2018 Comp Metabolic Gsf388 BI LI T 0.4 mg/dL 04/01/2018 Comp Metabolic Scv875 AL BUMIN 4.0 g/dL 04/01/2018 Comp Metabolic Pkr606 TP RO 6.5 g/dL 04/01/2018 Comp Metabolic Ljh911 GL OB 2.5 g/dL 04/01/2018 Comp Metabolic Hjh136 A/ G Ratio 1.6 Ratio 04/01/2018 Comp Metabolic Kud337 Os mo 280 mOsmo 04/01/2018 Lipid Ord30 [...] 34.3 pg 04/01/2018 Cbc With Differential Ord2 Campbell% 6.0 % 04/01/2018 Cbc With Differential Ord2 [...] 3.25 K/ul 04/01/2018 Cbc With Differential Ord2 Campbell ABS# 0.6 K/ul 04/01/2018 Cbc With Differential Ord2 Eos ABS# 0.4 K/ul 04/01/2018 Cbc With Differential Ord2 Baso ABS# 0.0 K/ul 04/01/2018 %Hba1C Jdk942 % HbA1c 59993-8 8.0 % 04/01/2018 %Hba1C Otd634 Gluc Ave 183 mg/dL 04/01/2018 Testosterone Eur463 Testo 111.3 ng/dL 04/01/2018 Testosterone Ebj732 Testo 135.4 ng/dL 01/14/2018 Cbc With Differential Ord2 WBC 12.03 K/ul 01/14/2018 Cbc With Differential Ord2 RBC 3.58 M/ul 01/14/2018 Cbc With Differential Ord2 HGB 12.9 g/dl 01/14/2018 Cbc With Differential Ord2 Neut% 68.6 % 01/14/2018 Cbc With Differential Ord2 HCT 36.4 % 01/14/2018 Cbc With Differential Ord2 MCV 101.7 fl 01/14/2018 Cbc With Differential Ord2 Lymph% 22.5 % 01/14/2018 Cbc With Differential Ord2 MCH 36.0 pg 01/14/2018 Cbc With Differential Ord2 Campbell% 6.8 % 01/14/2018 Cbc With Differential Ord2 Eos% 2.0 % 01/14/2018 Cbc With Differential Ord2 MCHC 35.4 pg 01/14/2018 Cbc With Differential Ord2 PLT 263 K/ul 01/14/2018 Cbc With Differential Ord2 Baso% 0.1 % 01/14/2018 Cbc With Differential Ord2 RDW 13.3 % 01/14/2018 Cbc With Differential Ord2 Neut ABS# 8.25 K/ul 01/14/2018 Cbc With Differential Ord2 Lymph ABS# 2.71 K/ul 01/14/2018 Cbc With Differential Ord2 Campbell ABS# 0.8 K/ul 01/14/2018 Cbc With Differential Ord2 Eos ABS# 0.2 K/ul 01/14/2018 Cbc With Differential Ord2 Baso ABS# 0.0 K/ul 01/14/2018 Comp Metabolic Oqk901 NA 134 mEq/L 11/20/2017 Comp Metabolic Izg564 K 4.4 mEq/L 11/20/2017 Comp Metabolic Lub245 CL 99 mEq/L 11/20/2017 Comp Metabolic Ygf177 CO2 29.0 mEq/L 11/20/2017 Comp Metabolic Jqu885 AN ION GAP 10 11/20/2017 Comp Metabolic Bpf018 GL UCOSE 218 mg/dL 11/20/2017 Comp Metabolic Spv339 Cr eat 1.0 mg/dL 11/20/2017 Comp Metabolic Rms601 eG FR 78 ml/min/1.73m2 11/20 Comp Metabolic Zjz015 BUN 13 mg/dL 11/20/2017 Comp Metabolic Hkz510 B/ C Ratio 13.3 Ratio 11/20/2017 Comp Metabolic Met254 CA LCIUM 9.0 mg/dL 11/20/2017 Comp Metabolic Eac789 AL K PHOS 71 U/L 11/20/2017 Comp Metabolic Hcd214 T(SGOT) 18 U/L 11/20/2017 Comp Metabolic Uny203 AL T(SGPT) 17 U/L 11/20/2017 Comp Metabolic Rvi779 BI LI T 0.4 mg/dL 11/20/2017 Comp Metabolic Ijw061 AL BUMIN 4.1 g/dL 11/20/2017 Comp Metabolic Nnt952 TP RO 6.5 g/dL 11/20/2017 Comp Metabolic Ncc050 GL OB 2.4 g/dL 11/20/2017 Comp Metabolic Odz181 A/ G Ratio 1.8 Ratio 11/20/2017 Comp Metabolic Myq594 Os mo 275 mOsmo 11/20/2017 Cbc With [...] 35.2 pg 11/20/2017 Cbc With Differential Ord2 Campbell% 7.2 % 11/20/2017 Cbc With Differential Ord2 Eos% 3.4 % 11/20/2017 Cbc With Differential Ord2 MCHC 34.1 pg 11/20/2017 Cbc With Differential Ord2 PLT 211 K/ul 11/20/2017 Cbc With Differential Ord2 Baso% 0.2 % 11/20/2017 Cbc With Differential Ord2 RDW 13.7 % 11/20/2017 Cbc With Differential Ord2 Neut ABS# 3.91 K/ul 11/20/2017 Cbc With Differential Ord2 Lymph ABS# 3.34 K/ul 11/20/2017 Cbc With Differential Ord2 Campbell ABS# 0.6 K/ul 11/20/2017 Cbc With Differential Ord2 Eos ABS# 0.3 K/ul 11/20/2017 Cbc With Differential Ord2 Baso ABS# 0.0 K/ul 11/20/2017 Vitamin D 25 Oh Ezv2670 VITAMIN D, 25 HYDROXY 43.72 ng/mL 11/20/2017 %Hba1C Cib128 % HbA1c 45692-5 7.4 % 11/20/2017 %Hba1C Kks784 Gluc Ave 166 mg/dL 11/20/2017 %Hba1C San448 % HbA1c 60739-2 7.2 % 08/20/2017 %Hba1C Ipz155 Gluc Ave 160 mg/dL 08/20/2017 Lipid Ord30 [...] 36.2 % 08/20/2017 Cbc With Differential Ord2 Lymph% 29.1 % 08/20/2017 Cbc With Differential Ord2 MCV 102.8 fl 08/20/2017 Cbc With Differential Ord2 MCH 34.7 pg 08/20/2017 Cbc With Differential Ord2 Campbell% 7.6 % 08/20/2017 Cbc With Differential Ord2 [...] 2.42 K/ul 08/20/2017 Cbc With Differential Ord2 Campbell ABS# 0.6 K/ul 08/20/2017 Cbc With Differential Ord2 Eos ABS# 0.3 K/ul 08/20/2017 Cbc With Differential Ord2 Baso ABS# 0.0 K/ul 08/20/2017 Tsh Ord6 hTSH II 2.27 uIU/mL 08/20/2017 Comp Metabolic Xox893 NA 138 mEq/L 08/20/2017 Comp Metabolic Zfm544 K 4.3 mEq/L 08/20/2017 Comp Metabolic Kfi517 CL 102 mEq/L 08/20/2017 Comp Metabolic Ezd485 CO2 29.0 mEq/L 08/20/2017 Comp Metabolic Dbq414 AN ION GAP 11 08/20/2017 Comp Metabolic Kqp792 GL UCOSE 89 mg/dL 08/20/2017 Comp Metabolic Zrt476 Cr eat 1.0 mg/dL 08/20/2017 Comp Metabolic Phc448 eG FR 80 ml/min/1.73m2 08/20 Comp Metabolic Gtj954 BUN 13 mg/dL 08/20/2017 Comp Metabolic Eew053 B/ C Ratio 13.5 Ratio 08/20/2017 Comp Metabolic Ngk656 CA LCIUM 9.2 mg/dL 08/20/2017 Comp Metabolic Rvk445 AL K PHOS 69 U/L 08/20/2017 Comp Metabolic Sea909 T(SGOT) 18 U/L 08/20/2017 Comp Metabolic Vdh084 AL T(SGPT) 19 U/L 08/20/2017 Comp Metabolic Yyx195 BI LI T 0.6 mg/dL 08/20/2017 Comp Metabolic Kbt132 AL BUMIN 4.0 g/dL 08/20/2017 Comp Metabolic Blj950 TP RO 6.6 g/dL 08/20/2017 Comp Metabolic Fnz102 GL OB 2.6 g/dL 08/20/2017 Comp Metabolic Qmt332 A/ G Ratio 1.5 Ratio 08/20/2017 Comp Metabolic Slq323 Os mo 275 mOsmo 08/20/2017 Vitamin D 25 Oh Rja2034 VITAMIN D, 25 HYDROXY 30.96 ng/mL 08/20/2017 B12 Qai579 B12 >1500.00 pg/ml 02/22/2017 Cbc With Differential [...] 35.7 pg 02/20/2017 Cbc With Differential Ord2 Campbell% 6.3 % 02/20/2017 Cbc With Differential Ord2 Eos% 4.6 % 02/20/2017 Cbc With Differential Ord2 MCHC 33.5 pg 02/20/2017 Cbc With Differential Ord2 PLT 205 K/ul 02/20/2017 Cbc With Differential Ord2 Baso% 0.4 % 02/20/2017 Cbc With Differential Ord2 Neut ABS# 4.37 K/ul 02/20/2017 Cbc With Differential Ord2 RDW 14.9 % 02/20/2017 Cbc With Differential Ord2 Lymph ABS# 3.19 K/ul 02/20/2017 Cbc With Differential Ord2 Campbell ABS# 0.5 K/ul 02/20/2017 Cbc With Differential Ord2 Eos ABS# 0.4 K/ul 02/20/2017 Cbc With Differential Ord2 Baso ABS# 0.0 K/ul 02/20/2017 Comp Metabolic Uxk646 NA 138 mEq/L 02/20/2017 Comp Metabolic Ang185 K 4.5 mEq/L 02/20/2017 Comp Metabolic Gam635 CL 101 mEq/L 02/20/2017 Comp Metabolic Aet600 CO2 31.0 mEq/L 02/20/2017 Comp Metabolic Uyv585 AN ION GAP 11 02/20/2017 Comp Metabolic Vdc468 GL UCOSE 120 mg/dL 02/20/2017 Comp Metabolic Qkj184 Cr eat 0.9 mg/dL 02/20/2017 Comp Metabolic Prn047 eG FR 83 ml/min/1.73m2 02/20 Comp Metabolic Wpw391 BUN 15 mg/dL 02/20/2017 Comp Metabolic Bua683 B/ C Ratio 16.1 Ratio 02/20/2017 Comp Metabolic Viv071 CA LCIUM 9.1 mg/dL 02/20/2017 Comp Metabolic Kmf462 AL K PHOS 67 U/L 02/20/2017 Comp Metabolic Caa119 T(SGOT) 15 U/L 02/20/2017 Comp Metabolic Zmd639 AL T(SGPT) 16 U/L 02/20/2017 Comp Metabolic Csi641 BI LI T 0.5 mg/dL 02/20/2017 Comp Metabolic Pdk180 AL BUMIN 4.0 g/dL 02/20/2017 Comp Metabolic Cfn569 TP RO 6.4 g/dL 02/20/2017 Comp Metabolic Loo656 GL OB 2.4 g/dL 02/20/2017 Comp Metabolic Qjy069 A/ G Ratio 1.7 Ratio 02/20/2017 Comp Metabolic Kus790 Os mo 278 mOsmo 02/20/2017 Tsh Ord6 hTSH II 2.05 uIU/mL 02/20/2017 %Hba1C Zva909 % HbA1c 34208-2 7.6 % 02/20/2017 %Hba1C Wdl619 Gluc Ave 171 mg/dL 02/20/2017 Vitamin D 25 Oh Bvf5774 VITAMIN D, 25 HYDROXY 44.40 ng/mL 12/21/2016 Comp Metabolic Ors219 NA 131 mEq/L 12/21/2016 Comp Metabolic Cpw943 K 4.2 mEq/L 12/21/2016 Comp Metabolic Llt380 CL 97 mEq/L 12/21/2016 Comp Metabolic Kds043 CO2 27.0 mEq/L 12/21/2016 Comp Metabolic Tph557 AN ION GAP 11 12/21/2016 Comp Metabolic Obd708 GL UCOSE 266 mg/dL 12/21/2016 Comp Metabolic Ozd810 Cr eat 0.9 mg/dL 12/21/2016 Comp Metabolic Jui129 eG FR 88 ml/min/1.73m2 12/21 Comp Metabolic Mpd792 BUN 12 mg/dL 12/21/2016 Comp Metabolic Dfd232 B/ C Ratio 13.6 Ratio 12/21/2016 Comp Metabolic Fjb779 CA LCIUM 8.6 mg/dL 12/21/2016 Comp Metabolic Exq841 AL K PHOS 69 U/L 12/21/2016 Comp Metabolic Ict671 T(SGOT) 15 U/L 12/21/2016 Comp Metabolic Hwv301 AL T(SGPT) 14 U/L 12/21/2016 Comp Metabolic Blu012 BI LI T 0.3 mg/dL 12/21/2016 Comp Metabolic Cmv125 AL BUMIN 3.7 g/dL 12/21/2016 Comp Metabolic Dpc630 TP RO 5.9 g/dL 12/21/2016 Comp Metabolic Dxq162 GL OB 2.2 g/dL 12/21/2016 Comp Metabolic Kew070 A/ G Ratio 1.7 Ratio 12/21/2016 Comp Metabolic Djw573 Os mo 272 mOsmo 12/21/2016 Cbc With [...] 34.6 pg 12/21/2016 Cbc With Differential Ord2 Campbell% 6.9 % 12/21/2016 Cbc With Differential Ord2 Eos% 3.9 % 12/21/2016 Cbc With Differential Ord2 MCHC 34.2 pg 12/21/2016 Cbc With Differential Ord2 PLT 187 K/ul 12/21/2016 Cbc With Differential Ord2 Baso% 0.4 % 12/21/2016 Cbc With Differential Ord2 RDW 13.1 % 12/21/2016 Cbc With Differential Ord2 Neut ABS# 2.56 K/ul 12/21/2016 Cbc With Differential Ord2 Lymph ABS# 2.05 K/ul 12/21/2016 Cbc With Differential Ord2 Campbell ABS# 0.4 K/ul 12/21/2016 Cbc With Differential Ord2 Eos ABS# 0.2 K/ul 12/21/2016 Cbc With Differential Ord2 Baso ABS# 0.0 K/ul 12/21/2016 Comp Metabolic Vhz217 NA 138 mEq/L 09/03/2016 Comp Metabolic Dbf022 K 4.5 mEq/L 09/03/2016 Comp Metabolic Xci834 CL 102 mEq/L 09/03/2016 Comp Metabolic Zjs110 CO2 30.0 mEq/L 09/03/2016 Comp Metabolic Zqn570 AN ION GAP 11 09/03/2016 Comp Metabolic Ojl115 GL UCOSE 113 mg/dL 09/03/2016 Comp Metabolic Sja444 Cr eat 1.0 mg/dL 09/03/2016 Comp Metabolic Zox343 eG FR 81 ml/min/1.73m2 09/03 Comp Metabolic Xcr268 BUN 10 mg/dL 09/03/2016 Comp Metabolic Lme512 B/ C Ratio 10.5 Ratio 09/03/2016 Comp Metabolic Fju277 CA LCIUM 9.1 mg/dL 09/03/2016 Comp Metabolic Cdo653 AL K PHOS 71 U/L 09/03/2016 Comp Metabolic Gwh652 T(SGOT) 18 U/L 09/03/2016 Comp Metabolic Www283 AL T(SGPT) 17 U/L 09/03/2016 Comp Metabolic Fiz012 BI LI T 0.6 mg/dL 09/03/2016 Comp Metabolic Rob931 AL BUMIN 4.1 g/dL 09/03/2016 Comp Metabolic Nnz982 TP RO 6.4 g/dL 09/03/2016 Comp Metabolic Yeo311 GL OB 2.3 g/dL 09/03/2016 Comp Metabolic Yaa542 A/ G Ratio 1.8 Ratio 09/03/2016 Comp Metabolic Sxr851 Os mo 276 mOsmo 09/03/2016 Vitamin D 25 Oh Orr5038 VITAMIN D, 25 HYDROXY 28.23 ng/mL 09/03/2016 [...] 41.4 % 09/03/2016 Cbc With Differential Ord2 Campbell% 8.9 % 09/03/2016 Cbc With Differential Ord2 MCH 34.4 pg 09/03/2016 Cbc With Differential Ord2 Eos% 5.0 % 09/03/2016 Cbc With Differential Ord2 MCHC 33.8 pg 09/03/2016 Cbc With Differential Ord2 PLT 163 K/ul 09/03/2016 Cbc With Differential Ord2 Baso% 0.1 % 09/03/2016 Cbc With Differential Ord2 RDW 13.6 % 09/03/2016 Cbc With Differential Ord2 Neut ABS# 3.59 K/ul 09/03/2016 Cbc With Differential Ord2 Lymph ABS# 3.34 K/ul 09/03/2016 Cbc With Differential Ord2 Campbell ABS# 0.7 K/ul 09/03/2016 Cbc With Differential Ord2 Eos ABS# 0.4 K/ul 09/03/2016 Cbc With Differential Ord2 Baso ABS# 0.0 K/ul 09/03/2016 Lipid Ord30 CHOL 120 mg/dL 09/03/2016 Lipid Ord30 HDL 33.0 mg/dl 09/03/2016 Lipid Ord30 TRIG 161 mg/dL 09/03/2016 Lipid Ord30 LDL 55 mg/dL 09/03/2016 Lipid Ord30 C/HDL 3.6 Ratio 09/03/2016 %Hba1C Yai598 % HbA1c 84609-5 7.5 % 09/03/2016 %Hba1C Tcz934 Gluc Ave 169 mg/dL 09/03/2016 Tsh Ord6 hTSH II 1.50 uIU/mL 05/23/2016 %Hba1C Ipo534 % HbA1c 02289-0 7.6 % 05/23/2016 %Hba1C Hyn236 Gluc Ave 171 mg/dL 05/23/2016 Comp Metabolic Ipn315 NA 135 mEq/L 05/23/2016 Comp Metabolic Yfx465 K 4.4 mEq/L 05/23/2016 Comp Metabolic Ajh308 CL 99 mEq/L 05/23/2016 Comp Metabolic Ajm705 CO2 28.0 mEq/L 05/23/2016 Comp Metabolic Tqt277 AN ION GAP 12 05/23/2016 Comp Metabolic Hjn045 GL UCOSE 257 mg/dL 05/23/2016 Comp Metabolic Iaq456 Cr eat 0.8 mg/dL 05/23/2016 Comp Metabolic Wch651 eG FR 95 ml/min/1.73m2 05/23 Comp Metabolic Ccr012 BUN 11 mg/dL 05/23/2016 Comp Metabolic Bpb523 B/ C Ratio 13.3 Ratio 05/23/2016 Comp Metabolic Ynf071 CA LCIUM 9.0 mg/dL 05/23/2016 Comp Metabolic Yja372 AL K PHOS 82 U/L 05/23/2016 Comp Metabolic Tvi203 T(SGOT) 21 U/L 05/23/2016 Comp Metabolic Wtn048 AL T(SGPT) 20 U/L 05/23/2016 Comp Metabolic Kfa860 BI LI T 0.3 mg/dL 05/23/2016 Comp Metabolic Vto948 AL BUMIN 4.0 g/dL 05/23/2016 Comp Metabolic Rvj177 TP RO 6.4 g/dL 05/23/2016 Comp Metabolic Cmi041 GL OB 2.4 g/dL 05/23/2016 Comp Metabolic Avt919 A/ G Ratio 1.6 Ratio 05/23/2016 Comp Metabolic Ynv358 Os mo 278 mOsmo 05/23/2016 Cbc With [...] 34.5 pg 05/23/2016 Cbc With Differential Ord2 Campbell% 6.1 % 05/23/2016 Cbc With Differential Ord2 MCHC 33.8 pg 05/23/2016 Cbc With Differential Ord2 Eos% 3.4 % 05/23/2016 Cbc With Differential Ord2 Baso% 0.5 % 05/23/2016 Cbc With Differential Ord2 PLT 192 K/ul 05/23/2016 Cbc With Differential Ord2 Neut ABS# 3.37 K/ul 05/23/2016 Cbc With Differential Ord2 RDW 13.5 % 05/23/2016 Cbc With Differential Ord2 Lymph ABS# 2.38 K/ul 05/23/2016 Cbc With Differential Ord2 Campbell ABS# 0.4 K/ul 05/23/2016 Cbc With Differential Ord2 Eos ABS# 0.2 K/ul 05/23/2016 Cbc With Differential Ord2 Baso ABS# 0.0 K/ul 05/23/2016 B12 Edv390 B12 597.00 pg/ml 05/23/2016 Metabolic Ord15 NA [...] 0.92 uIU/mL 07/29/2015 Vitamin D 25 Oh Ega9065 VITAMIN D, 25 HYDROXY 26.93 ng/mL 07/29/2015 %Hba1C Mbz651 % HbA1c 33074-3 8.8 % 07/29/2015 %Hba1C Ihw882 Gluc Ave 206 mg/dL 07/29/2015 Cbc With [...] Ord2 RDW 14.9 % 07/29/2015 Comp Metabolic Mfj695 NA 138 mEq/L 07/29/2015 Comp Metabolic Gsi001 K 4.4 mEq/L 07/29/2015 Comp Metabolic Ino928 CL 102 mEq/L 07/29/2015 Comp Metabolic Pta077 CO2 28.0 mEq/L 07/29/2015 Comp Metabolic Dny158 AN ION GAP 12 07/29/2015 Comp Metabolic Gra927 GL UCOSE 261 mg/dL 07/29/2015 Comp Metabolic Uro721 Cr eat 1.0 mg/dL 07/29/2015 Comp Metabolic Qut656 eG FR 77 ml/min/1.73m2 07/29 Comp Metabolic Lmd623 BUN 13 mg/dL 07/29/2015 Comp Metabolic Ocu508 B/ C Ratio 13.0 Ratio 07/29/2015 Comp Metabolic Oso316 CA LCIUM 9.1 mg/dL 07/29/2015 Comp Metabolic Sfa540 AL K PHOS 64 U/L 07/29/2015 Comp Metabolic Pfg476 T(SGOT) 20 U/L 07/29/2015 Comp Metabolic Mmh486 AL T(SGPT) 22 U/L 07/29/2015 Comp Metabolic Wlu026 BI LI T 0.4 mg/dL 07/29/2015 Comp Metabolic Udz004 AL BUMIN 4.0 g/dL 07/29/2015 Comp Metabolic Fkc098 TP RO 6.1 g/dL 07/29/2015 Comp Metabolic Uqt944 GL OB 2.1 g/dL 07/29/2015 Comp Metabolic Wuw461 A/ G Ratio 1.9 Ratio 07/29/2015 Comp Metabolic Chb471 Os mo 285 mOsmo 07/29/2015 Cbc With [...] Ord2 RDW 13.1 % 05/06/2015 Comp Metabolic Uwl580 NA 134 mEq/L 05/06/2015 Comp Metabolic Hss906 K 4.4 mEq/L 05/06/2015 Comp Metabolic Wba143 CL 98 mEq/L 05/06/2015 Comp Metabolic Lda594 CO2 29.0 mEq/L 05/06/2015 Comp Metabolic Atq551 AN ION GAP 11 05/06/2015 Comp Metabolic Moz842 GL UCOSE 321 mg/dL 05/06/2015 Comp Metabolic Wrb697 Cr eat 1.0 mg/dL 05/06/2015 Comp Metabolic Wpz083 eG FR 78 ml/min/1.73m2 05/06 Comp Metabolic Uqk463 BUN 20 mg/dL 05/06/2015 Comp Metabolic Mqo548 B/ C Ratio 20.4 Ratio 05/06/2015 Comp Metabolic Nfz177 CA LCIUM 9.5 mg/dL 05/06/2015 Comp Metabolic Uxh877 AL K PHOS 62 U/L 05/06/2015 Comp Metabolic Pwi498 T(SGOT) 21 U/L 05/06/2015 Comp Metabolic Ejp339 AL T(SGPT) 37 U/L 05/06/2015 Comp Metabolic Mkc815 BI LI T 0.4 mg/dL 05/06/2015 Comp Metabolic Nfr538 AL BUMIN 3.8 g/dL 05/06/2015 Comp Metabolic Tmt748 TP RO 6.1 g/dL 05/06/2015 Comp Metabolic Uco743 GL OB 2.3 g/dL 05/06/2015 Comp Metabolic Hwz754 A/ G Ratio 1.7 Ratio 05/06/2015 Comp Metabolic Qba794 Os mo 283 mOsmo 05/06/2015 Tsh Ord6 hTSH II 1.65 uIU/mL 02/18/2015 B12 Bkk590 B12 605.00 pg/ml 02/18/2015 %Hba1C Unh612 % HbA1c 86126-1 8.3 % 02/18/2015 %Hba1C Ayo411 Gluc Ave 192 mg/dL 02/18/2015 Cbc With [...] Ord2 RDW 13.9 % 02/17/2015 Comp Metabolic Rvf410 NA 137 mEq/L 02/17/2015 Comp Metabolic Ojb097 K 4.4 mEq/L 02/17/2015 Comp Metabolic Bgf268 CL 100 mEq/L 02/17/2015 Comp Metabolic Jya384 CO2 31.0 mEq/L 02/17/2015 Comp Metabolic Rxa333 AN ION GAP 10 02/17/2015 Comp Metabolic Iul807 GL UCOSE 307 mg/dL 02/17/2015 Comp Metabolic Pdc644 Cr eat 1.0 mg/dL 02/17/2015 Comp Metabolic Cos788 eG FR 74 ml/min/1.73m2 02/17 Comp Metabolic Brr251 BUN 22 mg/dL 02/17/2015 Comp Metabolic Ube991 B/ C Ratio 21.4 Ratio 02/17/2015 Comp Metabolic Dqn284 CA LCIUM 9.5 mg/dL 02/17/2015 Comp Metabolic Ztd312 AL K PHOS 78 U/L 02/17/2015 Comp Metabolic Esc775 T(SGOT) 18 U/L 02/17/2015 Comp Metabolic Xdw400 AL T(SGPT) 32 U/L 02/17/2015 Comp Metabolic Sqk542 BI LI T 0.5 mg/dL 02/17/2015 Comp Metabolic Wde714 AL BUMIN 4.3 g/dL 02/17/2015 Comp Metabolic Fhs033 TP RO 6.7 g/dL 02/17/2015 Comp Metabolic Hxy159 GL OB 2.4 g/dL 02/17/2015 Comp Metabolic Wjd115 A/ G Ratio 1.8 Ratio 02/17/2015 Comp Metabolic Wem165 Os mo 289 mOsmo 02/17/2015 Review of [...] 10/17/2018 None Full Exam - General 1995 Musculoskeletal [...] clear 04/04/2018 None Full Exam - General 1995 Ears/Nose/Throat lips/teeth/gingiva Overall: benign lips 04/04/2018 None [...] inspection of skin Location: face 03/07/2015 on evangelical, cheeks,actinic keratosis with irritation on left cheek - left evangelical - croptherapy on these two lesions - [...] Procedure Codes Date THER/PROPH/DIAG INJ SC/IM CPT-4: 21023 01/30/2019 THER/PROPH/DIAG INJ SC/IM CPT-4: 85098 01/16/2019 THER/PROPH/DIAG INJ SC/IM CPT-4: 76192 01/01/2019 THER/PROPH/DIAG INJ SC/IM CPT-4: 06351 12/17/2018 THER/PROPH/DIAG INJ SC/IM CPT-4: 68925 12/02/2018 THER/PROPH/DIAG INJ SC/IM CPT-4: 76415 11/18/2018 THER/PROPH/DIAG INJ SC/IM CPT-4: 31888 11/04/2018 THER/PROPH/DIAG INJ SC/IM CPT-4: 64169 10/14/2018 THER/PROPH/DIAG INJ SC/IM CPT-4: 78364 10/03/2018 THER/PROPH/DIAG INJ SC/IM CPT-4: 63333 09/23/2018 THER/PROPH/DIAG INJ SC/IM CPT-4: 55526 09/02/2018 THER/PROPH/DIAG INJ SC/IM CPT-4: 72453 08/21/2018 THER/PROPH/DIAG INJ SC/IM CPT-4: 11797 08/08/2018 THER/PROPH/DIAG INJ SC/IM CPT-4: 50948 07/28/2018 THER/PROPH/DIAG INJ SC/IM CPT-4: 95901 07/16/2018 THER/PROPH/DIAG INJ SC/IM CPT-4: 34010 07/02/2018 PPPS, SUBSEQ VISIT CPT- 4: G0439 06/30/2018 THER/PROPH/DIAG INJ SC/IM CPT-4: 71768 06/24/2018 THER/PROPH/DIAG INJ SC/IM CPT-4: 57588 06/13/2018 ADMIN INFLUENZA VIRU S VAC CPT-4: G0008 06/06/2018 FLU VACC PRSV FREE I NC ANTIG CPT-4: 95798 06/06/2018 THER/PROPH/DIAG INJ SC/IM CPT-4: 40002 06/05/2018 THER/PROPH/DIAG INJ SC/IM CPT-4: 08118 05/30/2018 THER/PROPH/DIAG INJ SC/IM CPT-4: 28215 05/22/2018 THER/PROPH/DIAG INJ SC/IM CPT-4: 61289 05/12/2018 THER/PROPH/DIAG INJ SC/IM CPT-4: 78593 05/02/2018 THER/PROPH/DIAG INJ SC/IM CPT-4: 38218 04/24/2018 THER/PROPH/DIAG INJ SC/IM CPT-4: 60043 04/17/2018 KETOROLAC TROMETHAMI NE INJ CPT-4: J1885 03/07/2018 URINALYSIS NONAUTO W /O SCOPE CPT-4: 83637 03/07/2018 THER/PROPH/DIAG INJ SC/IM CPT-4: 67660 02/20/2018 TRIAMCINOLONE ACET I [place] NOS CPT-4: J3301 01/30/2018 THER/PROPH/DIAG INJ SC/IM CPT-4: 09245 01/17/2018 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-[address]: [id number] CPT-4: G0436 04/25/2017 ADMIN INFLUENZA VIRU S VAC CPT-4: G0008 04/25/2017 ADMIN PNEUMOCOCCAL V ACCINE SNOMED CT: 31360214 CPT-4: G0009 04/25/2017 PNEUMOCOCCAL VACC [address]: 52015349 CPT-4: 92951 04/25/2017 FLU VACC PRSV FREE I NC ANTIG CPT-4: 81906 04/25/2017 ADMIN INFLUENZA VIRU S VAC CPT-4: G0008 05/22/2016 FLU VACC 4 TELLY 3 YRS PLUS IM Formatting Model/CDA Sections, Assigned to/Angela Clemons SNOMED CT: 46177149 CPT-4: 28645Ithjoup 05/22/2016 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-[address]: 269419209 CPT-4: G0436 11/25/2015 URINALYSIS NONAUTO W /O SCOPE CPT-4: 65686 05/09/2015 TRIAMCINOLONE ACET I [place] NOS CPT-4: J3301 04/12/2015 DESTRUCT PREMALG LESION CPT-4: 56817 03/07/2015 DESTRUCT PREMALG LES 2-14 CPT-4: 45792 03/07/2015 REMOVE IMPACTED EAR WAX UNI CPT-4: 16567 12/31/2014 THER/PROPH/DIAG INJ SC/IM CPT-4: 31699 12/23/2014 TRIAMCINOLONE ACET I [place] NOS CPT-4: J3301 12/23/2014 Vital Signs Date Vital 12/02/2018 Blood Pressure 1: 140/70 Code: 8480-6 BMI: 21.9 Code: 22755-8 Heart Rate 1: 61 bpm Height: 5'11" SpO2: 94% Weight: 157 lbs 10/17/2018 Blood Pressure 1: 124/54 Code: 8480-6 BMI: 21.9 Code: 23732-0 Heart Rate 1: 64 bpm Height: 5'11" SpO2: 93% Weight: 157 lbs 09/02/2018 Blood Pressure 1: 140/80 Code: 8480-6 BMI: 21.2 Code: 66810-2 Heart Rate 1: 68 bpm Height: 5'11" SpO2: 97% Weight: 152 lbs 06/30/2018 BMI: 21.8 Code: 05618-8 Height: 5'11" Weight: 156 lbs 06/06/2018 Blood Pressure 1: 128/76 Code: 8480-6 BMI: 22.0 Code: 53320-3 Heart Rate 1: 81 bpm Height: 5'11" SpO2: 92% Weight: 158 lbs 04/04/2018 Blood Pressure 1: 124/70 Code: 8480-6 BMI: 20.8 Code: 05022-6 Heart Rate 1: 65 bpm Height: 5'11" SpO2: 95% Weight: 149 lbs 03/07/2018 Blood Pressure 1: 148/70 Code: 8480-6 BMI: 21.2 Code: 14017-9 Heart Rate 1: 66 bpm Height: 5'11" SpO2: 94% Weight: 152 lbs 02/20/2018 Blood Pressure 1: 134/58 Code: 8480-6 BMI: 20.5 Code: 16920-9 Heart Rate 1: 61 bpm Height: 5'11" SpO2: 92% Weight: 147 lbs 01/30/2018 Blood Pressure 1: 158/68 Code: 8480-6 BMI: 21.5 Code: 63590-5 Heart Rate 1: 71 bpm Height: 5'11" SpO2: 92% Weight: 154 lbs 01/14/2018 Blood Pressure 1: 156/70 Code: 8480-6 Height: Weight: 01/13/2018 Blood Pressure 1: 148/62 Code: 8480-6 BMI: 20.9 Code: 68152-2 Heart Rate 1: 54 bpm Height: 5'11" SpO2: 97% Weight: 150 lbs 11/19/2017 Blood Pressure 1: 150/60 Code: 8480-6 BMI: 21.8 Code: 64026-4 Heart Rate 1: 63 bpm Height: 5'11" SpO2: 98% Weight: 156 lbs 10/02/2017 Blood Pressure 1: 168/60 Code: 8480-6 BMI: 21.9 Code: 62320-1 Heart Rate 1: 52 bpm Height: 5'11" SpO2: 97% Weight: 157 lbs 07/23/2017 Blood Pressure 1: 170/70 Code: 8480-6 BMI: 21.8 Code: 42981-6 Heart Rate 1: 65 bpm Height: 5'11" SpO2: 98% Weight: 156 lbs 04/25/2017 Blood Pressure 1: 138/60 Code: 8480-6 BMI: 21.6 Code: 97456-7 Heart Rate 1: 55 bpm Height: 5'11" SpO2: 93% Weight: 155 lbs 02/19/2017 Blood Pressure 1: 138/64 Code: 8480-6 BMI: 21.3 Code: 12350-2 Heart Rate 1: 52 bpm Height: 5'11" SpO2: 96% Weight: 152 lbs 8 oz 01/21/2017 Blood Pressure 1: 160/68 Code: 8480-6 BMI: 21.3 Code: 27232-1 Heart Rate 1: 62 bpm Height: 5'11" SpO2: 96% Weight: 153 lbs 12/20/2016 Blood Pressure 1: 124/66 Code: 8480-6 BMI: 21.5 Code: 94651-7 Height: 5'11" Weight: 154 lbs 08/23/2016 Blood Pressure 1: 142/52 Code: 8480-6 BMI: 21.2 Code: 96245-6 Heart Rate 1: 54 bpm Height: 5'11" SpO2: 96% Weight: 152 lbs 05/22/2016 Blood Pressure 1: 130/76 Code: 8480-6 BMI: 21.5 Code: 97268-0 Heart Rate 1: 78 bpm Height: 5'11" SpO2: 92% Weight: 154 lbs 02/24/2016 Blood Pressure 1: 128/80 Code: 8480-6 BMI: 21.2 Code: 18425-9 Heart Rate 1: 74 bpm Height: 5'11" SpO2: 96% Weight: 152 lbs 01/27/2016 Blood Pressure 1: 144/60 Code: 8480-6 BMI: 21.2 Code: 30899-7 Heart Rate 1: 74 bpm Height: 5'11" SpO2: 97% Weight: 152 lbs 11/25/2015 Blood Pressure 1: 110/52 Code: 8480-6 BMI: 21.9 Code: 72540-6 Heart Rate 1: 65 bpm Height: 5'11" SpO2: 92% Weight: 157 lbs 07/28/2015 Blood Pressure 1: 138/62 Code: 8480-6 BMI: 21.8 Code: 55765-6 Heart Rate 1: 63 bpm Height: 5'11" SpO2: 91% Weight: 156 lbs 05/26/2015 Blood Pressure 1: 120/58 Code: 8480-6 BMI: 21.5 Code: 56295-7 Heart Rate 1: 99 bpm Height: 5'11" SpO2: 96% Weight: 154 lbs 05/06/2015 Blood Pressure 1: 120/58 Code: 8480-6 BMI: 21.2 Code: 74109-0 Heart Rate 1: 66 bpm Height: 5'11" SpO2: 96% Weight: 152 lbs 04/25/2015 Blood Pressure 1: 136/62 Code: 8480-6 BMI: 21.2 Code: 02331-2 Heart Rate 1: 63 bpm Height: 5'11" SpO2: 97% Weight: 152 lbs 04/12/2015 Blood Pressure 1: 160/58 Code: 8480-6 BMI: 21.6 Code: 51004-9 Heart Rate 1: 62 bpm Height: 5'11" Weight: 155 lbs 03/24/2015 Blood Pressure 1: 138/68 Code: 8480-6 BMI: 22.0 Code: 54900-1 Heart Rate 1: 65 bpm Height: 5'11" SpO2: 96% Weight: 158 lbs 03/07/2015 Blood Pressure 1: 116/52 Code: 8480-6 BMI: 22.2 Code: 06224-8 Heart Rate 1: 64 bpm Height: 5'11" SpO2: 97% Weight: 159 lbs 02/17/2015 Blood Pressure 1: 148/58 Code: 8480-6 BMI: 21.3 Code: 99229-9 Heart Rate 1: 63 bpm Height: 5'11" SpO2: 97% Weight: 153 lbs 12/31/2014 Blood Pressure 1: 100/60 Code: 8480-6 BMI: 21.8 Code: 89331-3 Heart Rate 1: 68 bpm Height: 5'11" Weight: 156 lbs 12/23/2014 Blood Pressure 1: 148/64 Code: 8480-6 BMI: 21.9 Code: 16356-4 Heart Rate 1: 64 bpm Height: 5'11" [...] Encounters Encounter Performer Loca tion Codes Date ([id number]) [id number] EST. [facility] Diagnosis: Chronic obstructive pulmonary disease, unspecified[ICD10: J44.9] Diagnosis: Type 2 diabetes mellitus with hyperglycemia[ICD10: E11.65] Diagnosis: Testicular dysfunction, unspecified[ICD10: E29.9] Diagnosis: Other insomnia[ICD10: G47.09] Karmen Ash MD, [facility] CPT- 4: 34161 12/02/2018 ([id number] 54516 EST. [facility] Diagnosis: Orthostatic hypotension[ICD10: I95.1] Diagnosis: Low back pain[ICD10: M54.5] Diagnosis: Unsteadiness on feet[ICD10: R26.81] Karmen Ash MD, [facility] CPT-4: 68891 10/17/2018 [id number]) 21948 EST. 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 P ATIENT, LEVEL IV Diagnosis: Cellulitis of face[ICD10: L03.211] Diagnosis: Type 2 diabetes mellitus without complications[ICD10: E11.9] Diagnosis: Essential (primary) hypertension[ICD10: I10] Diagnosis: Encounter for immunization[ICD10: Z23] Karmen Ash MD, [facility] CPT-4: 40218 06/06/2018 ([id number]) 84096 EST. P ATIENT, LEVEL IV Diagnosis: Essential (primary) hypertension[ICD10: I10] Diagnosis: Chronic obstructive pulmonary disease, unspecified[ICD10: J44.9] Diagnosis: Testicular dysfunction, unspecified[ICD10: E29.9] Diagnosis: Type 2 diabetes mellitus with hyperglycemia[ICD10: E11.65] Karmen Ash MD, [facility] CPT-4: 20352 04/04/2018 ([id number]) 11614 EST. P ATIENT, LEVEL III Diagnosis: Low back pain[ICD10: M54.5] Diagnosis: Dysuria[ICD10: R30.0] Karmen Ash MD, [facility] CPT-4: 03974 03/07/2018 ([id number]) 08813 EST. P ATIENT, LEVEL IV Diagnosis: Essential (primary) hypertension[ICD10: I10] Diagnosis: Chronic obstructive pulmonary disease, unspecified[ICD10: J44.9] Diagnosis: Abnormal weight loss[ICD10: R63.4] Diagnosis: Low back pain[ICD10: M54.5] Diagnosis: Testicular dysfunction, unspecified[ICD10: E29.9] Diagnosis: Type 2 diabetes mellitus with hyperglycemia[ICD10: E11.65] Karmen Ash MD, [facility] CPT-4: 27091 02/20/2018 ([id number]) 64073 EST. P ATIENT, LEVEL III Diagnosis: Chronic obstructive pulmonary disease with (acute) exacerbation[ICD10: J44.1] Karmen Ash MD, [facility] CPT-4: 40019 01/30/2018 72891 EST. PATIENT, LEVEL II Diagnosis: Insect bite (nonvenomous), left lower leg, initial encounter[ICD10: S80.862A] Karmen Ash MD, [facility] CPT-4: 62151 01/14/2018 ([id number]) 78526 EST. P ATIENT, LEVEL IV Diagnosis: Type 2 diabetes mellitus with hyperglycemia[ICD10: E11.65] Diagnosis: Chronic obstructive pulmonary disease, unspecified[ICD10: J44.9] Diagnosis: Other fatigue[ICD10: R53.83] Karmen Ash MD, [facility] CPT- 4: 31082 01/13/2018 ([id number]) 57525 EST. P ATIENT, LEVEL IV Diagnosis: Type 2 diabetes mellitus with hyperglycemia[ICD10: E11.65] Diagnosis: Vitamin D deficiency, unspecified[ICD10: E55.9] Diagnosis: Essential (primary) hypertension[ICD10: I10] Diagnosis: Abdominal distension (gaseous)[ICD10: R14.0] Diagnosis: Drug induced constipation[ICD10: K59.03] Karmen Ash MD, [facility] CPT-4: 46184 11/19/2017 [id number] EST. PATIENT, LEVEL IV Diagnosis: Low back pain[ICD10: M54.5] Diagnosis: Chronic obstructive pulmonary disease, unspecified[ICD10: J44.9] Brunilda Ash MD, [facility] CPT-4: 67234 10/02/2017 ([id number]) 67122 EST. P ATIENT, LEVEL IV Diagnosis: Essential (primary) hypertension[ICD10: I10] Diagnosis: Type 2 diabetes mellitus with hyperglycemia[ICD10: E11.65] Diagnosis: Vitamin D deficiency, unspecified[ICD10: E55.9] Diagnosis: Mixed hyperlipidemia[ICD10: E78.2] Karmen Ash MD, [facility] CPT-4: 16882 07/23/2017 ([id number]) 76570 EST. P ATIENT, LEVEL IV Diagnosis: Essential (primary) hypertension[ICD10: I10] Diagnosis: Type 2 diabetes mellitus with hyperglycemia[ICD10: E11.65] Diagnosis: Chronic obstructive pulmonary disease, unspecified[ICD10: J44.9] Diagnosis: Nicotine dependence, unspecified, uncomplicated[ICD10: F17.200] Diagnosis: Encounter for immunization[ICD10: Z23] Karmen Ash MD, [facility] CPT-4: 78579 04/25/2017 ([id number]) 65593 EST. P ATIENT, LEVEL IV Diagnosis: Type 2 diabetes mellitus with hyperglycemia[ICD10: E11.65] Diagnosis: Essential (primary) hypertension[ICD10: I10] Diagnosis: Anemia, unspecified[ICD10: D64.9] Karmen Ash MD, [facility] CPT- 4: 60460 02/19/2017 ([id number]) 20081 EST. P ATIENT, LEVEL IV Diagnosis: Slow transit constipation[ICD10: K59.01] Diagnosis: Gastro-esophageal reflux disease without esophagitis[ICD10: K21.9] Diagnosis: Essential (primary) hypertension[ICD10: I10] Karmen Ash MD, [facility] CPT-4: 99288 01/21/2017 ([id number]) 86297 EST. P ATIENT, LEVEL IV Diagnosis: Type 2 diabetes mellitus with hyperglycemia[ICD10: E11.65] Diagnosis: Vitamin D deficiency, unspecified[ICD10: E55.9] Diagnosis: Essential (primary) hypertension[ICD10: I10] Diagnosis: Chronic obstructive pulmonary disease, unspecified[ICD10: J44.9] Karmen Ash MD, [facility] CPT-4: 12400 12/20/2016 ([id number]) 75525 EST. P ATIENT, LEVEL IV Diagnosis: Type 2 diabetes mellitus with hyperglycemia[ICD10: E11.65] Diagnosis: Essential (primary) hypertension[ICD10: I10] Diagnosis: Mixed hyperlipidemia[ICD10: E78.2] Diagnosis: Vitamin D deficiency, unspecified[ICD10: E55.9] Karmen Ash MD, [facility] CPT-4: 86836 08/23/2016 ([id number]) 18883 EST. P ATIENT, LEVEL IV Diagnosis: Type 2 diabetes mellitus with hyperglycemia[ICD10: E11.65] Diagnosis: Essential (primary) hypertension[ICD10: I10] Diagnosis: Chronic obstructive pulmonary disease, unspecified[ICD10: J44.9] Karmen Ash MD, [facility] CPT-4: 81866 05/22/2016 ([id number]) 24789 EST. P ATIENT, LEVEL III Diagnosis: Dysuria[ICD10: R30.0] Diagnosis: Essential (primary) hypertension[ICD10: I10] Karmen Ash MD, [facility] CPT-4: 21916 02/24/2016 ([id number]) 88870 EST. P ATIENT, LEVEL IV Diagnosis: Gastro-esophageal reflux disease without esophagitis[ICD10: K21.9] Diagnosis: Slow transit constipation[ICD10: K59.01] Diagnosis: Type 2 diabetes mellitus with hyperglycemia[ICD10: E11.65] Karmen Ash MD, [facility] CPT-4: 11884 01/27/2016 ([id number]) 54114 EST. P ATIENT, LEVEL IV Diagnosis: Essential (primary) hypertension[ICD10: I10] Diagnosis: Type 2 diabetes mellitus with hyperglycemia[ICD10: E11.65] Diagnosis: Vitamin D deficiency, unspecified[ICD10: E55.9] Diagnosis: Chronic obstructive pulmonary disease, unspecified[ICD10: J44.9] Diagnosis: Mixed hyperlipidemia[ICD10: E78.2] Diagnosis: Tobacco use[ICD10: Z72.0] Karmen Ash MD, [facility] CPT- 4: 93273 11/25/2015 ([id number]) 61179 EST. P ATIENT, LEVEL IV Diagnosis: Type 2 diabetes mellitus with hyperglycemia[ICD10: E11.65] Diagnosis: Essential (primary) hypertension[ICD10: I10] Diagnosis: Vitamin D deficiency, unspecified[ICD10: E55.9] Karmen Ash MD, [facility] CPT-4: 91422 07/28/2015 ([id number]) 11873 EST. P ATIENT, LEVEL III Diagnosis: Type 2 diabetes mellitus with hyperglycemia[ICD10: E11.65] Diagnosis: Essential (primary) hypertension[ICD10: I10] Violeta Ash MD, [facility] CPT-4: 17879 05/26/2015 ([id number]) 62736 EST. P ATIENT, LEVEL III Diagnosis: DIABETES TYPE II[ICD9: 250.00] Diagnosis: COPD (chronic obstructive pulmonary disease)[ICD9: 496] Diagnosis: ESSENTIAL HYPERTENSION[ICD9: 401.9] Diagnosis: Cough[ICD9: 786.2] Violeta Ash MD, [facility] CPT-4: 21015 05/06/2015 ([id number]) 13996 EST. P ATIENT, LEVEL III Diagnosis: COPD (chronic obstructive pulmonary disease)[ICD9: 496] Diagnosis: DIABETES TYPE II[ICD9: 250.00] Diagnosis: Muscle ache[ICD9: 729.1] Karmen Ash MD, [facility] CPT- 4: 52487 04/25/2015 ([id number]) 38915 EST. P ATIENT, LEVEL III Diagnosis: ACTINIC KERATOSIS[ICD9: 702.0] Diagnosis: COPD (chronic obstructive pulmonary disease)[ICD9: 496] Diagnosis: DIABETES TYPE II[ICD9: 250.00] Diagnosis: ACUTE URI[ICD9: 465.9] Violeta Ash MD, [facility] CPT-4: 46817 04/12/2015 ([id number]) 52829 EST. P ATIENT, LEVEL III Diagnosis: DIABETES TYPE II[ICD9: 250.00] Violeta Ash MD, [facility] CPT-4: 36221 03/24/2015 ([id number]) 93359 EST. P ATIENT, LEVEL IV Diagnosis: DIABETES TYPE II[ICD9: 250.00] Diagnosis: Hypoglycemia[ICD9: 251.2] Diagnosis: Skin texture changes[ICD9: 782.8] Violeta Ash MD, [facility] CPT-4: 31829 03/07/2015 ([id number]) 81072 EST. P ATIENT, LEVEL IV Diagnosis: COPD (chronic obstructive pulmonary disease)[ICD9: 496] Diagnosis: Fatigue[ICD9: 780.79] Diagnosis: Insulin dependent diabetes mellitus[ICD9: 250.00] Diagnosis: Unsteady gait[ICD9: 781.2] Maame Ash MD, [facility] CPT-4: 76769 02/17/2015 ([id number]) 29598 EST. P ATIENT, LEVEL IV Diagnosis: BPPV (benign paroxysmal positional vertigo)[ICD9: 386.11] Diagnosis: Impacted cerumen[ICD9: 380.4] Diagnosis: ESSENTIAL HYPERTENSION[ICD9: 401.9] Diagnosis: Insulin dependent diabetes mellitus[ICD9: 250.00] [facility] CPT-4: 70050 12/23/2014 ([id number]) OFFICE [facility] LEVEL 4 Diagnosis: Insulin dependent diabetes mellitus[ICD9: 250.00] Diagnosis: BPPV (benign paroxysmal positional vertigo)[ICD9: 386.11] Diagnosis: COPD (chronic obstructive pulmonary disease)[ICD9: 496] Diagnosis: Tobacco abuse[ICD9: 305.1] Diagnosis: Osteoarthritis[ICD9: 715.90] [facility] CPT- 4: 58943 12/09/2014 Plan of Care Planned Activity Notes C odes Status Date Appointment: Injection 01/30/2019 Patient Education: Patient Medication [...] as directed 12/02/2018 Appointment: Karmen Espinal WPtel: [address] [place], [place] [phone] (30 min) [facility] 12/02/2018 Patient Education: Patient Medication Summary Completed 12/02/2018 Patient Education: Diabetes Completed 12/02/2018 Appointment: Injection 11/18/2018 Patient Education: Patient Medication Summary Completed 11/18/2018 Appointment: Injection 11/04/2018 Patient Education: Patient Medication Summary Completed 11/04/2018 Appointment: [facility]el[facility] [phone] [phone] (30 min) Complex 10/21/2018 Visit Plan: Orthostatic [...] walker 10/17/2018 Appointment: Karm[facility] Espinal [facility]Ptel[facility] [phone] [phone] (30 min) Complex 10/17/2018 Patient Education: Patient [...] medications. 09/02/2018 Appointment: Karm[facility] Espinal [facility]Ptel[facility] [phone] [phone] (15 min) Moderate 09/02/2018 Patient Education: Patient [...] care surrogate. 06/30/2018 Appointment: Karmen Espinal WPtel[facility] [phone] [phone] [facility] - Annual Wellness Visit 06/30/2018 [...] pain. 06/06/2018 Appointment: [facility] Espinal [facility]Ptel[facility] [phone] [phone] (15 min) Moderate 06/06/2018 Patient Education: Patient [...] 2 months 04/04/2018 Appointment: Karmen Espinal WPtel: [phone] [phone] (15 min) Moderate 04/04/2018 Patient Education: Patient Medication Summary Completed 04/04/2018 Care Plan: Cbc With Differential Pending 04/04/2018 Care Plan: Testosterone repeat in 2 months Pending 04/04/2018 Appointment: Karmen Espinal WPtel: [phone] [phone] [place] (15 min) Moderate 03/25/2018 Visit Plan: Low back pain -history of kidney stone-UA negative today -increase fluids and call if pain does not resolve or if any worse. 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 01/30/2018 Appointment: [facility]arm[facility] Espinal [facility]Ptel[facility] [phone] [phone] (15 min) Moderate 01/30/2018 Patient Education: Patient Medication Summary Completed 01/30/2018 Appointment: Teddy Karmen WPtel: [address] [place] [address] (15 min) Moderate 01/28/2018 Appointment: Injection 01/17/2018 Patient Education: Patient Medication Summary Completed 01/17/2018 Visit Plan: Cellulitis - start oral antibiotics as directed, return to clinic as previously directed, call for acute change in symptoms, worsening redness, warmth, discharge. 01/14/2018 Appointment: Karmen Espinal WPtel: [facility] (10 min) Simple 01/14/2018 Patient Education: [...] less controlled. 01/13/2018 Appointment: Karmen Espinal WPtel: [address] [place] [address] (15 min) Moderate 01/13/2018 Patient Education: Patient Medication Summary Completed 01/13/2018 Referral: Hugo Villatoro HPtel:[phone] [place] [address] Patient's informed. Referral info ned monroy. Completed [...] change in blood pressure readings at home. Sibotywh-mkvvtu-yxkbj to see Dr Villatoro Constipation-start linzess daily 11/19/2017 Appointment: Karmen Espianl WPtel: [phone] [phone] [place] (30 min) Complex 11/19/2017 Patient Education: Patient Medication Summary Completed 11/19/2017 Care Plan: Referral Order bloating, nausea SNOMED-CT : [id number] Pending 11/19/2017 Visit Plan: Low back pain- [...] acute changes. 10/02/2017 Appointment: Brunilda Maravilla WPtel: [phone] [facility] [place] (15 min) Moderate 10/02/2017 Patient Education: [...] less controlled. 07/23/2017 Appointment: Karmen Espinal WPtel: [address] [place], [place] [phone] (30 min) [facility] 07/23/2017 Patient Education: Patient Medication [...] history 04/25/2017 Appointment: Karmen Espinal WPtel: [phone] [phone] (30 min) Complex 04/25/2017 Patient Education: Patient [...] readings are starting to become less controlled. Qjvnic-qpijguw-plaoi labs 02/19/2017 Appointment: Karmen Espinal WPtel: [phone] [phone] (30 min) Complex 02/19/2017 Patient Education: Patient [...] month 01/21/2017 Appointment: Karmen Espinal WPtel: [phone] [phone] (30 min) Complex 01/21/2017 Patient Education: Patient Medication Summary Completed 01/21/2017 Patient Education: Smoking and Tobacco Addiction Completed 01/21/2017 Patient Education: Hypertension Completed 01/21/2017 Care Plan: Referral Order SNOMED-CT : [id number] Pending 01/21/2017 Visit Plan: Diabetes Mellitus - [...] changes. 12/20/2016 Appointment: Karmen Espinal WPtel: [phone] (30 min) Complex 12/20/2016 Patient Education: Patient Medication Summary Completed 12/20/2016 Patient Education: Smoking and Tobacco Addiction Completed 12/20/2016 Patient Education: Hypertension Completed 12/20/2016 Appointment: Karmen Espinal WPtel: [phone] [phone] (30 min) Complex 09/06/2016 Visit Plan: Diabetes [...] level 08/23/2016 Appointment: Karmen Espinal WPtel: [phone] [phone] (30 min) [facility] 08/23/2016 Patient Education: Patient Medication Summary Completed 08/23/2016 Patient Education: Smoking and Tobacco Addiction Completed 08/23/2016 Patient Education: Patient Medication Summary Completed 05/23/2016 Visit Plan: Diabetes Mellitus - con virgieed [...] acute changes. 05/22/2016 Appointment: Karmen Espinal WPtel: [phone] [phone] (30 min) Complex 05/22/2016 Patient Education: Patient Medication Summary Completed 05/22/2016 Patient Education: Smoking and Tobacco Addiction Completed 05/22/2016 Care Plan: Cbc With Differential Ordered 05/22/2016 Care Plan: %Hba1C KIKI C : 91806-5 Ordered 05/22/2016 Care Plan: Tsh Ordered 05/22/2016 [...] update 02/24/2016 Appointment: Karmen Espinal WPtel: [phone] [phone] (30 min) Complex 02/24/2016 Patient Education: Patient [...] this regimen. 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 Owdbpqnb-bvupbpnx-JZVL SIMVASTATIN X 2 WEEKS AND CALL WITH [...] Completed 03/24/2015 Care Plan: COMPLETE CBC AUTOMATED [facility] : 38923-0 Ordered 03/24/2015 Visit Plan: Diabetes Mellitus - [...] removal. 03/07/2015 Appointment: Violeta Ash WPtel: [facility] (15 min) Moderate 03/07/2015 Patient Education: [...] Care Plan: COMPLETE CBC AUTOMATED LOINC : 79682-6 Ordered 12/23/2014 Visit Plan: BPPV - Benign [...] appt 12/09/2014 Appointment: Karmen Espinal WPtel: [phone] [place] ([place] New Patient 12/09/2014 Patient Education: Patient Medication Summary Completed 12/09/2014 Patient Education: .Amazing charts Parox ysmal positional vertigo Completed 12/09/2014 Patient Education: Smoking and Tobacco Addiction Completed 12/09/2014 [phone] [phone] [place] Referral Appointment Requested Referral: Luis Donohue [...] readings are starting to become less controlled. Zukqts-jpvugvr-labzi labs . COPD -recent pneum onia-symptoms have [...] - referral to Dr. Donohue for removal. Refer to Dr Irving marino or evaluation DX bloating, nausea Linzess 72mcg daily check labs . Diabetes Mellitus - controlled - per r rafael FSBS reports. I have recommended for the [...] change in blood pressure readings at home. Ycxenbat-doedda-thibu to see Dr Villatoro Constipation-start linzess daily [...] POTENTIAL SIDE EFFECTS AND WORSENING OF SYMPTOMS. Kdsutpxd-qzisotyk-LPQB SIMVASTATIN X 2 WEEKS AND CALL WITH [...] Vitamin d deficiency-check vitamin d level . Cerumen Impaction - The impacted cerumen [...] does not resolve or if any worse. . Hypertension - wel l controlled - [...]
--- OUTSIDE RECORDS SUMMARY | 2020-03-29 07:55 | XMS REPORT | CCD ---
Author Author Dick Espinal Organization [facility] Address [address] [place] [address] Phone Care Team Providers Care Assembler [employer] Name Role Phone PP Unavailable CCM Unavailable Summary Purpose Interface Exchange Insurance Providers Payer name Policy type / Coverage type Covered green party ID Effective Begin Date Effective End Date WPS Medicare Part B Medicare Part B [id number] Unknown Unknown [employer] Medicar e Part B [id number] Unknown Unkn own Family history Father Diagnosis Age At Onset Cancer Unknown Mother Diagnosis Age At Onset Cancer Unknown Social History Social History Element Codes Description Effective Dates Marital status Unknown M arried 12/09/2014 Employment Unknown Retir ed 12/09/[address]: 91477353 Currently smokes tobacco 12/09/2014 Number of years using tobacco Unknown > 50 12/09/2014 Number of cigarettes/day Unknown 30 (Pack and a half) 12/09/[address]: 149603597 Never drinks alcohol 12/09/2014 Allergies, Adverse Reactions, [...] Date Stop Date Sta tus Fill Instructions Protonix 40 mg table t,delayed release RxNorm: 664518 TAKE 1 TABLET BY MOUT H DAILY 02/02/2019 01/27/2020 Ac tive - Ref: [id number] simvastatin 40 mg ta blet RxNorm: 140017 TAKE 1 TABLET BY MOUT H DAILY AT BEDTIME 02/02/2019 01/27/2020 Ac tive - Ref: [id number] testosterone cypiona te 200 mg/mL intramuscular oil RxNorm: 8119039 Milliliter(s) IM 01/30/2019 01/30/2019 In active testosterone cypiona te 200 mg/mL intramuscular oil RxNorm: 8010626 1/2 Milliliter(s) IM [id number] 01/16/2019 05/15/2019 Active testosterone cypiona te 200 mg/mL intramuscular oil RxNorm: 6453296 Milliliter(s) IM 01/16/2019 01/16/2019 In active hydrocodone 5 mg-ilnh taminophen 325 mg tablet RxNorm: 893459 1 Tablet(s) PO Q6-8H as needed 01/14/2019 02/07/2019 Active testosterone cypiona te 200 mg/mL intramuscular oil RxNorm: 5189851 Milliliter(s) IM 01/01/2019 01/01/2019 In active Xanax 0.5 mg tablet RxNorm: 755159 1 Tablet(s) PO TID 12/18/2018 02/15/2019 Active testosterone cypiona te 200 mg/mL intramuscular oil RxNorm: 7914049 Milliliter(s) IM 12/17/2018 12/17/2018 In active hydrocodone 5 mg-linh taminophen 325 mg tablet RxNorm: 134177 1 Tablet(s) PO Q6-8H as needed 12/15/2018 01/08/2019 Inactive testosterone cypiona te 200 mg/mL intramuscular oil RxNorm: 4763174 Milliliter(s) IM 12/02/2018 12/02/2018 In active testosterone cypiona te 200 mg/mL intramuscular oil RxNorm: 5066107 Milliliter(s) IM 11/18/2018 11/18/2018 In active hydrocodone 5 mg-linh taminophen 325 mg tablet RxNorm: 132912 1 Tablet(s) PO Q6-8H as needed 11/13/2018 12/07/2018 Inactive testosterone cypiona te 200 mg/mL intramuscular oil RxNorm: 7480409 1/2 Milliliter(s) IM [id number] 11/04/2018 01/15/2019 Inactive testosterone cypiona te 200 mg/mL intramuscular oil RxNorm: 1645799 Milliliter(s) IM 11/04/2018 11/04/2018 In active nicotine 21 mg/24 hr daily transdermal patch RxNorm: 979501 1 TD daily 10/31/2018 10/30/2018 In active nicotine 21 mg/24 hr daily transdermal patch RxNorm: 959470 1 TD daily 10/31/2018 11/29/2018 In active meclizine 25 mg tablet RxNorm: 465418 1 Tablet(s) PO Q6 PRN TAKE ONE TABLET BY MOUTH EVERY 6 HOURS NEEDED 10/17/2018 01/14/2019 Inactive hydrocodone 5 mg-linh taminophen 325 mg tablet RxNorm: 032311 1 Tablet(s) PO Q6-8H as needed 10/17/2018 11/10/2018 Inactive metformin 500 mg tablet RxNorm: 774307 Tablet(s) TAKE 1 TABLET BY MOUTH DAILY 10/15/2018 10/09/2019 Ac tive lisinopril 10 mg tablet RxNorm: 997349 TAKE 1 TABLET BY MOUTH TWO TIMES DAILY 10/15/2018 10/09/2019 Ac tive - First Attempt Ref: [id number] testosterone cypiona te 200 mg/mL intramuscular oil RxNorm: 5692884 Milliliter(s) IM 10/14/2018 10/14/2018 In active Xanax 0.5 mg tablet RxNorm: 897427 1 Tablet(s) PO TID 10/03/2018 11/30/2018 Inactive testosterone cypiona te 200 mg/mL intramuscular oil RxNorm: 2765982 1/2 Milliliter(s) IM weekly 10/03/2018 11/03/2018 Inactive testosterone cypiona te 200 mg/mL intramuscular oil RxNorm: 7511780 Milliliter(s) IM 10/03/2018 10/03/2018 In active testosterone cypiona te 200 mg/mL intramuscular oil RxNorm: 3628781 Milliliter(s) IM 09/23/2018 09/23/2018 In active hydrocodone 5 mg-linh taminophen 325 mg tablet RxNorm: 587971 1 Tablet(s) PO Q6-8H as needed 09/22/2018 10/16/2018 Inactive testosterone cypiona te 200 mg/mL intramuscular oil RxNorm: 5093471 1/2 Milliliter(s) IM 09/02/2018 09/02/2018 Inactive testosterone enantha te 200 mg/mL intramuscular oil RxNorm: 078157 Milliliter(s) IM 08/21/2018 08/21/2018 In active hydrocodone 5 mg-linh taminophen 325 mg tablet RxNorm: 591573 1 Tablet(s) PO Q6-8H as needed 08/21/2018 09/14/2018 Inactive testosterone cypiona te 200 mg/mL intramuscular oil RxNorm: 2996175 Milliliter(s) IM 08/08/2018 08/08/2018 In active testosterone cypiona te 200 mg/mL intramuscular oil RxNorm: 0340058 1/2 Milliliter(s) IM 07/28/2018 07/28/2018 Inactive hydrocodone 5 mg-linh taminophen 325 mg tablet RxNorm: 578508 1 Tablet(s) PO Q6-8H as needed 07/21/2018 08/14/2018 Inactive testosterone cypiona te 200 mg/mL intramuscular oil RxNorm: 241727 Milliliter(s) IM 07/16/2018 07/16/2018 In active testosterone cypiona te 200 mg/mL intramuscular oil RxNorm: 069269 Milliliter(s) IM 07/02/2018 07/02/2018 In active Xanax 0.5 mg tablet RxNorm: 588490 1 Tablet(s) PO TID 06/27/2018 08/24/2018 Inactive testosterone cypiona te 200 mg/mL intramuscular oil RxNorm: 883301 Milliliter(s) IM 06/24/2018 06/24/2018 In active hydrocodone 5 mg-linh taminophen 325 mg tablet RxNorm: 923183 1 Tablet(s) PO Q6-8H as needed 06/23/2018 07/17/2018 Inactive testosterone cypiona te 200 mg/mL intramuscular oil RxNorm: 304267 Milliliter(s) IM 06/13/2018 06/13/2018 In active testosterone cypiona te 200 mg/mL intramuscular oil RxNorm: 325393 Milliliter(s) IM 06/05/2018 06/05/2018 In active testosterone cypiona te 200 mg/mL intramuscular oil RxNorm: 7275558 1/2 Milliliter(s) IM weekly 05/30/2018 09/26/2018 Inactive testosterone cypiona te 200 mg/mL intramuscular oil RxNorm: 016563 Milliliter(s) IM 05/30/2018 05/30/2018 In active testosterone cypiona te 200 mg/mL intramuscular oil RxNorm: 678765 Milliliter(s) IM 05/22/2018 05/22/2018 In active hydrocodone 5 mg-linh taminophen 325 mg tablet RxNorm: 860836 1 Tablet(s) PO Q6-8H as needed 05/20/2018 06/13/2018 Inactive testosterone cypiona te 200 mg/mL intramuscular oil RxNorm: 645890 1/2 Milliliter(s) IM 05/12/2018 05/12/2018 Inactive testosterone cypiona te 200 mg/mL intramuscular oil RxNorm: 927507 Milliliter(s) IM 05/02/2018 05/02/2018 In active testosterone cypiona te 200 mg/mL intramuscular oil RxNorm: 762685 1/2 Milliliter(s) IM weekly 04/24/2018 05/29/2018 Inactive testosterone cypiona te 200 mg/mL intramuscular oil RxNorm: 134902 0.5 Milliliter(s) IM 04/24/2018 04/24/2018 Inactive hydrocodone 5 mg-linh taminophen 325 mg tablet RxNorm: 640173 1 Tablet(s) PO Q6-8H as needed 04/22/2018 05/16/2018 Inactive testosterone cypiona te 200 mg/mL intramuscular oil RxNorm: 547500 1/2 Milliliter(s) IM 04/17/2018 04/17/2018 Inactive testosterone cypiona te 200 mg/mL intramuscular oil RxNorm: 552374 1/2 Milliliter(s) IM weekly 04/16/2018 04/23/2018 Inactive Jardiance 10 mg tablet RxNorm: 0405485 1 Tablet(s) PO daily 04/04/2018 12/29/2018 Inactive testosterone cypiona te 200 mg/mL intramuscular oil RxNorm: 407163 1 Milliliter(s) IM monthly 04/04/2018 04/15/2018 Inactive Protonix 40 mg table t,delayed release RxNorm: 455309 1 Tablet(s) PO daily TAKE 1 TABLET BY MOUTH DAILY 04/04/2018 02/01/2019 Inactive - Ref: [id number] hydrocodone 5 mg-linh taminophen 325 mg tablet RxNorm: 817406 1 Tablet(s) PO Q6-8H as needed 03/19/2018 04/12/2018 Inactive Flomax 0.4 mg capsule RxNorm: 369637 1 Capsule(s) PO daily 03/10/2018 03/04/2019 Active Urecholine 25 mg tablet RxNorm: 146674 1 Tablet(s) PO BID 03/10/2018 07/07/2018 Inactive ketorolac 60 mg/2 mL intramuscular solution RxNorm: 1670143 Milliliter(s) IM 03/07/2018 03/07/2018 In active metformin 500 mg tablet RxNorm: 310317 Tablet(s) TAKE 1 TABLET BY MOUTH DAILY 02/20/2018 02/13/2019 Ac tive 1 q am and 1/2 tab q pm hydrocodone 5 mg-linh taminophen 325 mg tablet RxNorm: 087678 1 Tablet(s) PO Q6-8H as needed 02/20/2018 03/16/2018 Inactive Kenalog 40 mg/mL bartolome pension for injection RxNorm: 3660766 1.5 Milliliter(s) In j 01/30/2018 01/30/2018 In active hydrocodone 5 mg-linh taminophen 325 mg tablet RxNorm: 334914 1 Tablet(s) PO Q6-8H as needed 01/23/2018 02/16/2018 Inactive Urecholine 25 mg tablet RxNorm: 549952 1 Tablet(s) PO BID 01/22/2018 03/09/2018 Inactive Flomax 0.4 mg capsule RxNorm: 209393 1 Capsule(s) PO daily 01/22/2018 03/09/2018 Inactive Flomax 0.4 mg capsule RxNorm: 139270 1 Capsule(s) PO daily 01/22/2018 01/21/2018 Inactive Urecholine 25 mg tablet RxNorm: 331764 1 Tablet(s) PO BID 01/22/2018 01/21/2018 Inactive testosterone cypiona te 200 mg/mL intramuscular oil RxNorm: 859254 Milliliter(s) IM 01/17/2018 01/17/2018 In active testosterone cypiona te 200 mg/mL intramuscular oil RxNorm: 916730 1 Milliliter(s) IM monthly 01/17/2018 04/03/2018 Inactive doxycycline hyclate 100 mg tablet RxNorm: 372651 1 Tablet(s) PO BID 01/14/2018 01/23/2018 Inactive lisinopril 10 mg tablet RxNorm: 156021 TAKE 1 TABLET BY MOUTH TWO TIMES DAILY 01/14/2018 10/14/2018 In active - First Attempt Ref: [id number] nystatin 100,000 uni t/mL oral suspension RxNorm: 346949 4 Milliliter(s) PO QI D Swish and swallow 01/08/2018 01/07/2018 Inactive nystatin 100,000 uni t/mL oral suspension RxNorm: 958670 4 Milliliter(s) PO QI D Swish and swallow 01/08/2018 01/12/2018 Inactive Xanax 0.5 mg tablet RxNorm: 489611 1 Tablet(s) PO TID 01/08/2018 12/23/2018 Inactive simvastatin 40 mg ta blet RxNorm: 921484 TAKE 1 TABLET BY MOUT H DAILY AT BEDTIME 12/30/2017 12/24/2018 In active - First Attempt Ref: [id number] metformin 500 mg tablet RxNorm: 209959 TAKE 1 TABLET BY MOUTH DAILY 12/30/2017 02/19/2018 Inactive - First Attempt Ref: [id number] hydrocodone 5 mg-linh taminophen 325 mg tablet RxNorm: 117975 1 Tablet(s) PO Q6-8H as needed 12/25/2017 01/18/2018 Inactive Protonix 40 mg table t,delayed release RxNorm: 420089 Tablet(s) TAKE 1 TABL ET BY MOUTH DAILY 11/20/2017 04/03/2018 Inactive - Ref: [id number] Linzess 72 mcg capsule RxNorm: 2708550 1 Capsule(s) PO daily 11/19/2017 No Stop Date Active hydrocodone 5 mg-linh taminophen 325 mg tablet RxNorm: 122544 1 Tablet(s) PO Q6-8H as needed 11/19/2017 12/13/2017 Inactive hydrocodone 5 mg-linh taminophen 325 mg tablet RxNorm: 179315 1 Tablet(s) PO Q6-8H as needed 10/28/2017 11/18/2017 Inactive Xanax 0.5 mg tablet RxNorm: 890422 1 Tablet(s) PO TID 10/25/2017 12/22/2017 Inactive Xanax 0.5 mg tablet RxNorm: 287589 TAKE ONE TABLET BY MOUTH THREE TIMES A D AY 10/24/2017 12/01/2018 In active hydrocodone 5 mg-linh taminophen 325 mg tablet RxNorm: 328760 1 Tablet(s) PO Q6-8H as needed 09/30/2017 10/24/2017 Inactive Protonix 40 mg table t,delayed release RxNorm: 794504 TAKE 1 TABLET BY MOUT H DAILY 09/16/2017 11/19/2017 In active - Ref: [id number] Yovana Perkins 300 unit/mL (1.5 mL) subcutaneous insulin pen RxNorm: 9822263 35 Unit(s) SQ QHS 08/30/2017 No Stop Date Active dosage increase hydrocodone 5 mg-linh taminophen 325 mg tablet RxNorm: 669477 1 Tablet(s) PO Q6-8H as needed 08/28/2017 09/29/2017 Inactive hydrocodone 5 mg-linh taminophen 325 mg tablet RxNorm: 067528 1 Tablet(s) PO Q6-8H as needed 07/23/2017 08/24/2017 Inactive lisinopril 10 mg tablet RxNorm: 076731 1 Tablet(s) PO BID Take 1 tablet by mout h daily 07/23/2017 01/13/2018 Inactive hydrocodone 5 mg-linh taminophen 325 mg tablet RxNorm: 421548 1 Tablet(s) PO Q6-8H as needed 06/27/2017 07/22/2017 Inactive Xanax 0.5 mg tablet RxNorm: 868667 1 Tablet(s) PO TID 06/18/2017 10/25/2017 Inactive hydrocodone 5 mg-linh taminophen 325 mg tablet RxNorm: 490108 1 Tablet(s) PO Q6-8H as needed 05/27/2017 06/26/2017 Inactive Levaquin 500 mg tablet RxNorm: 234013 1 Tablet(s) PO daily 05/24/2017 05/23/2017 Inactive Levaquin 500 mg tablet RxNorm: 558392 1 Tablet(s) PO daily 05/24/2017 05/30/2017 Inactive Protonix 40 mg table t,delayed release RxNorm: 214309 Take 1 tablet by mout h daily 04/29/2017 09/15/2017 In active - Ref: [id number] hydrocodone 5 mg-linh taminophen 325 mg tablet RxNorm: 988742 1 Tablet(s) PO Q6-8H as needed 04/25/2017 05/26/2017 Inactive metformin 500 mg tablet RxNorm: 606531 Take 1 tablet by mouth daily 04/08/2017 12/29/2017 Inactive - First Attempt Ref: [id number] hydrocodone 5 mg-linh taminophen 325 mg tablet RxNorm: 479215 1 Tablet(s) PO Q6-8H as needed 03/27/2017 04/24/2017 Inactive hydrocodone 5 mg-linh taminophen 325 mg tablet RxNorm: 314201 1 Tablet(s) PO Q6-8H as needed 02/25/2017 03/26/2017 Inactive Protonix 40 mg table t,delayed release RxNorm: 880890 Tablet(s) Take 1 tabl et by mouth BID 02/25/2017 04/28/2017 Inactive Protonix 40 mg table t,delayed release RxNorm: 517770 Tablet(s) Take 1 tabl et by mouth BID 02/19/2017 02/18/2017 Inactive Protonix 40 mg table t,delayed release RxNorm: 941909 Tablet(s) Take 1 tabl et by mouth BID 02/19/2017 02/24/2017 Inactive lisinopril 10 mg tablet RxNorm: 031907 Take 1 tablet by mouth daily 01/29/2017 07/22/2017 Inactive - First Attempt Ref: [id number] hydrocodone 5 mg-linh taminophen 325 mg tablet RxNorm: 719607 1 Tablet(s) PO Q6-8H as needed 01/25/2017 02/24/2017 Inactive simvastatin 40 mg ta blet RxNorm: 929411 Tablet(s) Take 1 tabl et by mouth daily at bedtime 01/03/2017 12/28/2017 Inactive lisinopril 10 mg tablet RxNorm: 024744 Tablet(s) Take 1 tablet by mouth daily 01/03/2017 01/28/2017 In active Protonix 40 mg table t,delayed release RxNorm: 726238 Tablet(s) Take 1 tabl et by mouth daily 12/28/2016 02/18/2017 Inactive hydrocodone 5 mg-linh taminophen 325 mg tablet RxNorm: 932982 1 Tablet(s) PO Q6-8H as needed 12/26/2016 01/24/2017 Inactive Xanax 0.5 mg tablet RxNorm: 180199 1 Tablet(s) PO TID 12/12/2016 03/11/2017 Inactive simvastatin 40 mg ta blet RxNorm: 328066 Tablet(s) Take 1 tabl et by mouth daily at bedtime 11/30/2016 01/02/2017 Inactive simvastatin 40 mg ta blet RxNorm: 991538 Take 1 tablet by mout h daily at bedtime 11/29/2016 11/29/2016 In active - First Attempt Ref: [id number] Protonix 40 mg table t,delayed release RxNorm: 041047 Take 1 tablet by mout h daily 11/27/2016 12/27/2016 In active - First Attempt Ref: [id number] hydrocodone 5 mg-linh taminophen 325 mg tablet RxNorm: 772453 1 Tablet(s) PO Q6-8H as needed 11/26/2016 12/25/2016 Inactive hydrocodone 5 mg-linh taminophen 325 mg tablet RxNorm: 003426 1 Tablet(s) PO Q8 as needed 10/24/2016 11/25/2016 Inactive Xanax 0.5 mg tablet RxNorm: 650054 1 Tablet(s) PO TID 10/09/2016 12/25/2016 Inactive hydrocodone 5 mg-linh taminophen 325 mg tablet RxNorm: 868494 1 Tablet(s) PO Q8 as needed 09/27/2016 10/23/2016 Inactive lisinopril 10 mg tablet RxNorm: 255328 Take 1 tablet by mouth daily 09/25/2016 01/02/2017 Inactive - First Attempt Ref: [id number] Vitamin D2 50,000 un it capsule RxNorm: 075444 1 Capsule(s) PO QW 09/06/2016 12/01/2018 Inactive hydrocodone 5 mg-linh taminophen 325 mg tablet RxNorm: 649233 1 Tablet(s) PO Q8 as needed 08/28/2016 09/26/2016 Inactive Toujeo SoloStar 300 unit/mL (1.5 mL) subcutaneous insulin pen RxNorm: 9861107 25 Unit(s) SQ QHS 08/23/2016 08/29/2017 Inactive dosage increase hydrocodone 5 mg-linh taminophen 325 mg tablet RxNorm: 076348 1 Tablet(s) PO Q8 as needed 07/26/2016 08/27/2016 Inactive Protonix 40 mg table t,delayed release RxNorm: 842748 Take 1 tablet by mout h daily 07/24/2016 11/26/2016 In active - First Attempt Ref: [id number] hydrocodone 5 mg-linh taminophen 325 mg tablet RxNorm: 342795 1 Tablet(s) PO Q8 as needed 06/19/2016 07/21/2016 Inactive Toujeo SoloStar 300 unit/mL (1.5 mL) subcutaneous insulin pen RxNorm: 2766508 32 Unit(s) SQ QHS 05/30/2016 08/22/2016 Inactive dosage increase hydrocodone 5 mg-linh taminophen 325 mg tablet RxNorm: 344424 1 Tablet(s) PO Q8 as needed 05/22/2016 06/18/2016 Inactive hydrocodone 5 mg-linh taminophen 325 mg tablet RxNorm: 266118 1 Tablet(s) PO Q8 as needed 04/18/2016 05/17/2016 Inactive Protonix 40 mg table t,delayed release RxNorm: 198361 Take 1 tablet by mout h daily 04/05/2016 07/03/2016 In active - Ref: [id number] metformin 500 mg tablet RxNorm: 076280 Take 1 tablet by mouth daily 04/04/2016 07/02/2016 Inactive - Ref: [id number] Xanax 0.5 mg tablet RxNorm: 923845 1 Tablet(s) PO TID 03/30/2016 09/25/2016 Inactive Xanax 0.5 mg tablet RxNorm: 713211 1 Tablet(s) PO TID 03/23/2016 12/25/2016 Inactive hydrocodone 5 mg-linh taminophen 325 mg tablet RxNorm: 001711 1 Tablet(s) PO Q8 as needed 03/06/2016 04/04/2016 Inactive Cipro 500 mg tablet RxNorm: 045257 1 Tablet(s) PO BID 02/24/2016 03/04/2016 Inactive Miralax 17 gram oral powder packet RxNorm: 122742 1 packet PO every oth er day 01/27/2016 No Stop Date Active hydrocodone 5 mg-linh taminophen 325 mg tablet RxNorm: 144320 1 Tablet(s) PO Q8 as needed 01/27/2016 02/25/2016 Inactive lisinopril 10 mg tablet RxNorm: 576009 1 Tablet(s) PO daily 01/12/2016 09/24/2016 Inactive simvastatin 40 mg ta blet RxNorm: 438824 1 Tablet(s) PO QHS 01/12/2016 11/28/2016 Inactive simvastatin 40 mg ta blet RxNorm: 471470 1 Tablet(s) PO QHS 01/11/2016 01/11/2016 Inactive lisinopril 10 mg tablet RxNorm: 940517 1 Tablet(s) PO daily 01/06/2016 01/11/2016 Inactive simvastatin 40 mg ta blet RxNorm: 608852 1 Tablet(s) PO daily 12/28/2015 01/10/2016 Inactive hydrocodone 5 mg-linh taminophen 325 mg tablet RxNorm: 316344 1 Tablet(s) PO Q8 as needed 12/27/2015 01/26/2016 Inactive Xanax 0.5 mg tablet RxNorm: 492055 1 Tablet(s) PO TID 11/30/2015 03/29/2016 Inactive Toujeo SoloStar 300 unit/mL (1.5 mL) subcutaneous insulin pen RxNorm: 5414301 30 Unit(s) SQ QHS 11/25/2015 05/29/2016 Inactive dosage increase meclizine 25 mg tablet RxNorm: 515705 1 Tablet(s) PO Q6 PRN TAKE ONE TABLET BY MOUTH EVERY 6 HOURS NEEDED 11/25/2015 02/22/2016 Inactive omeprazole 20 mg cap jacquelyn,delayed release RxNorm: 681135 1 Capsule(s) PO daily 10/06/2015 01/26/2016 In active Toujeo SoloStar 300 unit/mL (1.5 mL) subcutaneous insulin pen RxNorm: 2903831 35 Unit(s) SQ QHS 08/02/2015 11/24/2015 Inactive dosage increase Vitamin D2 50,000 un it capsule RxNorm: 358509 1 Capsule(s) PO QW 08/02/2015 09/05/2016 Inactive hydrocodone 5 mg-linh taminophen 325 mg tablet RxNorm: 792886 1 Tablet(s) PO Q8 as needed 07/11/2015 12/26/2015 Inactive Xanax 0.5 mg tablet RxNorm: 800841 1 Tablet(s) PO TID 06/30/2015 06/29/2015 Inactive Xanax 0.5 mg tablet RxNorm: 227002 1 Tablet(s) PO TID 06/30/2015 12/25/2015 Inactive hydrocodone 5 mg-linh taminophen 325 mg tablet RxNorm: 714465 1 Tablet(s) PO Q8 as needed 05/06/2015 07/10/2015 Inactive Symbicort 160 mcg-4. 5 mcg/actuation HFA aerosol inhaler RxNorm: 0913309 INH 04/25/2015 No Stop Date Active Levemir FlexTouch 10 0 unit/mL (3 mL) subcutaneous insulin pen RxNorm: 729412 30 Unit(s) SQ QHS 04/25/2015 11/24/2015 Inactive prednisone 20 mg tablet RxNorm: 104452 1 Tablet(s) PO BID 04/25/2015 04/29/2015 Inactive metformin 500 mg tablet RxNorm: 472065 1 Tablet(s) PO daily 04/25/2015 04/03/2016 Inactive amoxicillin 500 mg c apsule RxNorm: 728428 1 Capsule(s) PO TID 04/14/2015 04/13/2015 Inactive amoxicillin 500 mg c apsule RxNorm: 048114 1 Capsule(s) PO TID a nd recommend probiotic tid (otc) 04/14/2015 04/20/2015 Inactive Kenalog 40 mg/mL bartolome pension for injection RxNorm: 5570391 Milliliter(s) Inj 04/12/2015 04/12/2015 In active hydrocodone 5 mg-linh taminophen 325 mg tablet RxNorm: 250262 1 Tablet(s) PO Q8 as needed 03/30/2015 05/05/2015 Inactive Lantus 100 unit/mL s ubcutaneous solution RxNorm: 136165 25 Unit(s) SQ QPM 03/24/2015 04/25/2015 In active meclizine 25 mg tablet RxNorm: 342202 Tablet(s) TAKE ONE TABLET BY MOUTH EVERY 6 HOURS NEEDED 03/08/2015 04/06/2015 Inactive meclizine 25 mg tablet RxNorm: 070417 TAKE ONE TABLET BY MOUTH EVERY 6 HOURS A S NEEDED 02/25/2015 03/03/2015 Inactive Lantus 100 unit/mL s ubcutaneous solution RxNorm: 643855 20 Unit(s) SQ QPM 02/23/2015 03/23/2015 In active Lantus 100 unit/mL s ubcutaneous solution RxNorm: 635364 25 Unit(s) SQ QPM 02/23/2015 02/22/2015 In active hydrocodone 5 mg-linh taminophen 325 mg tablet RxNorm: 503501 1 Tablet(s) PO Q8 as needed 02/17/2015 03/29/2015 Inactive Xanax 0.5 mg tablet RxNorm: 592921 1 Tablet(s) PO TID 02/03/2015 06/29/2015 Inactive Lantus 100 unit/mL s ubcutaneous solution RxNorm: 114156 20 Unit(s) SQ QPM 12/29/2014 02/22/2015 In active Phenergan 12.5 mg re ctal suppository RxNorm: 774329 1 Suppository RTL Q6 PRN 12/23/2014 No Stop Date Active nausea Kenalog 40 mg/mL bartolome pension for injection RxNorm: 3214813 Milliliter(s) Inj 12/23/2014 12/23/2014 In active prednisone 20 mg tablet RxNorm: 632372 2 Tablet(s) PO daily 12/13/2014 12/17/2014 Inactive prednisone 20 mg tablet RxNorm: 222688 2 Tablet(s) PO daily 12/13/2014 12/12/2014 Inactive meclizine 25 mg tablet RxNorm: 968140 1 Tablet(s) PO Q6 PRN 12/09/2014 02/24/2015 Inactive hydrocodone 5 mg-linh taminophen 325 mg tablet RxNorm: 792792 1 Tablet(s) PO Q8 as needed 12/09/2014 02/16/2015 Inactive Vitamin B-12 1,000 m cg/mL oral drops RxNorm: 9593622 1 Milliliter(s) PO d aily No Start Date Active Alphagan P 0.1 % eye drops RxNorm: 528874 1 Drop(s) OPH BID No Start Date Active aspirin 325 mg table t,delayed release RxNorm: 646538 1 Tablet(s) PO daily No Start Date Active Tricor 145 mg tablet RxNorm: 649466 1 Tablet(s) PO daily No Start Date Active vitamin C75-vdldekn B1 oral liquid RxNorm: 1,000 Microgram(s) PO daily No Start Date Active atenolol 50 mg tablet RxNorm: 257528 1 Tablet(s) PO daily No Start Date Active Protonix 40 mg table t,delayed release RxNorm: 583584 1 Tablet(s) PO daily No Start Date 04/04/2016 Inactive glipizide 10 mg tablet RxNorm: 374301 1 Tablet(s) PO BID No Start Date 03/22/2015 Inactive Lantus 100 unit/mL s ubcutaneous solution RxNorm: 897247 15 Unit(s) SQ QPM No Start Date 12/28/2014 Inactive lisinopril 10 mg tablet RxNorm: 353692 1 Tablet(s) PO daily No Start Date 01/05/2016 Inactive Vitamin D2 50,000 un it capsule RxNorm: 109318 1 Capsule(s) PO QW No Start Date 08/01/2015 Inactive Toujeo SoloStar 300 unit/mL (1.5 mL) subcutaneous insulin pen RxNorm: 3041429 30 Unit(s) SQ QHS No Start Date 08/01/2015 Inactive simvastatin 40 mg ta blet RxNorm: 699849 1 Tablet(s) PO daily No Start Date 12/27/2015 Inactive testosterone cypiona te 200 mg/mL intramuscular oil RxNorm: 981429 1 Milliliter(s) IM monthly No Start Date 01/16/2018 Inactive hydrocodone 5 mg-linh taminophen 325 mg tablet RxNorm: 538620 1 Tablet(s) PO Q8 as needed No Start Date 12/08/2014 Inactive metformin 500 mg tablet RxNorm: 334676 1 Tablet(s) PO daily No Start Date 04/24/2015 Inactive omeprazole 20 mg cap jacquelyn,delayed release RxNorm: 321378 1 Capsule(s) PO daily No Start Date 10/05/2015 Inactive Flomax 0.4 mg capsule RxNorm: 328287 1 Capsule(s) PO daily No Start Date 03/23/2015 Inactive Medication Administered Medication Codes Instruc tions Start Date Status testosterone cypionate 200 mg/mL intramuscular oil RxNorm: 1608264 Milliliter 01/30/2019 No longer Active testosterone cypionate 200 mg/mL intramuscular oil RxNorm: 5381400 Milliliter 01/16/2019 No longer Active testosterone cypionate 200 mg/mL intramuscular oil RxNorm: 0759671 Milliliter 01/01/2019 No longer Active testosterone cypionate 200 mg/mL intramuscular oil RxNorm: 4064119 Milliliter 12/17/2018 No longer Active testosterone cypionate 200 mg/mL intramuscular oil RxNorm: 8612582 Milliliter 12/02/2018 No longer Active testosterone cypionate 200 mg/mL intramuscular oil RxNorm: 3576809 Milliliter 11/18/2018 No longer Active testosterone cypionate 200 mg/mL intramuscular oil RxNorm: 7795940 Milliliter 11/04/2018 No longer Active testosterone cypionate 200 mg/mL intramuscular oil RxNorm: 2943924 Milliliter 10/14/2018 No longer Active testosterone cypionate 200 mg/mL intramuscular oil RxNorm: 2162628 Milliliter 10/03/2018 No longer Active testosterone cypionate 200 mg/mL intramuscular oil RxNorm: 7495828 Milliliter 09/23/2018 No longer Active testosterone cypionate 200 mg/mL intramuscular oil RxNorm: 8707183 1/2Milliliter 09/02/2018 No longer Active testosterone enanthate 200 mg/mL intramuscular oil RxNorm: 273518 [facility] 08/21/2018 No longer Active testosterone cypionate 200 mg/mL intramuscular oil RxNorm: 6846262 [facility] 08/08/2018 No longer Active testosterone cypionate 200 mg/mL intramuscular oil RxNorm: [id number] /2[facility] 07/28/2018 No longer Active testosterone cypionate 200 mg/mL intramuscular oil RxNorm: 072908 [facility] 07/16/2018 No longer Active testosterone cypionate 200 mg/mL intramuscular oil RxNorm: 069303 [facility] 07/02/2018 No longer Active testosterone cypionate 200 mg/mL intramuscular oil RxNorm: 786288 [facility] 06/24/2018 No longer Active testosterone cypionate 200 mg/mL intramuscular oil RxNorm: 706429 [facility] 06/13/2018 No longer Active testosterone cypionate 200 mg/mL intramuscular oil RxNorm: 204009 [facility] 06/05/2018 No longer Active testosterone cypionate 200 mg/mL intramuscular oil RxNorm: 703512 [facility] 05/30/2018 No longer Active testosterone cypionate 200 mg/mL intramuscular oil RxNorm: 341360 [facility] 05/22/2018 No longer Active testosterone cypionate 200 mg/mL intramuscular oil RxNorm: 491018 1/2[facility] 05/12/2018 No longer Active testosterone cypionate 200 mg/mL intramuscular oil RxNorm: 115013 [facility] 05/02/2018 No longer Active testosterone cypionate 200 mg/mL intramuscular oil RxNorm: 896010 0.5[facility]iliter 04/24/2018 No longer Active testosterone cypionate 200 mg/mL intramuscular oil RxNorm: 185939 1/2[facility] 04/17/2018 No longer Active ketorolac 60 mg/2 mL intramuscular solution RxNorm: 1461108 [facility] 03/07/2018 No longer Active Kenalog 40 mg/mL suspension for injection RxNorm: 1459451 1.5[facility]iliter 01/30/2018 No longer Active testosterone cypionate 200 mg/mL intramuscular oil RxNorm: 494324 [facility] 01/17/2018 No longer Active Kenalog 40 mg/mL suspension for injection RxNorm: 2591477 [facility] 04/12/2015 No longer Active Kenalog 40 mg/mL suspension for injection RxNorm: 5152441 [facility] 12/23/2014 No longer Active Immunizations Vaccine [...] 33.4 pg 12/02/2018 Cbc With Differential Ord2 Kidder% 8.0 % 12/02/2018 Cbc With Differential Ord2 [...] 2.13 K/ul 12/02/2018 Cbc With Differential Ord2 Kidder ABS# 0.6 K/ul 12/02/2018 Cbc With Differential Ord2 Eos ABS# 0.4 K/ul 12/02/2018 Cbc With Differential Ord2 Baso ABS# 0.0 K/ul 12/02/2018 Testosterone Abr143 Testo 213.5 ng/dL 12/02/2018 A1C Frequency Czr089 A1CF 39930-1 Last A1C performed [place] [facility] [place] [facility] [place]: 201812/02/2018 Testosterone Hbl958 Testo 669.0 ng/dL 09/08/2018 %Hba1C Thm254 % HbA1c 67096-6 7.4 % 09/08/2018 %Hba1C Tvg828 Gluc Ave 166 mg/dL 09/08/2018 Lipid Ord30 CHOL 114 mg/dL 09/08/2018 Lipid Ord30 HDL 28.0 mg/dl 09/08/2018 Lipid Ord30 TRIG 154 mg/dL 09/08/2018 Lipid Ord30 LDL 55 mg/dL 09/08/2018 Lipid Ord30 C/HDL 4.1 Ratio 09/08/2018 Comp Metabolic Ivd335 NA 137 mEq/L 09/08/2018 Comp Metabolic Hbg684 K 4.3 mEq/L 09/08/2018 Comp Metabolic Xyo611 CL 100 mEq/L 09/08/2018 Comp Metabolic Aki578 CO2 27.0 mEq/L 09/08/2018 Comp Metabolic Zbs747 AN ION GAP 14 09/08/2018 Comp Metabolic Dos314 GL UCOSE 85 mg/dL 09/08/2018 Comp Metabolic Mig430 Cr eat 1.1 mg/dL 09/08/2018 Comp Metabolic Jeu822 eG FR 70 ml/min/1.73m2 09/08 Comp Metabolic Gmq268 BUN 11 mg/dL 09/08/2018 Comp Metabolic Bpd447 B/ C Ratio 10.3 Ratio 09/08/2018 Comp Metabolic Ono232 CA LCIUM 9.2 mg/dL 09/08/2018 Comp Metabolic Epa302 AL K PHOS 65 U/L 09/08/2018 Comp Metabolic Fso796 T(SGOT) 16 U/L 09/08/2018 Comp Metabolic Ers605 AL T(SGPT) 14 U/L 09/08/2018 Comp Metabolic Aih654 BI LI T 0.6 mg/dL 09/08/2018 Comp Metabolic Whr137 AL BUMIN 4.0 g/dL 09/08/2018 Comp Metabolic Qsc584 TP RO 6.6 g/dL 09/08/2018 Comp Metabolic Ksf113 GL OB 2.6 g/dL 09/08/2018 Comp Metabolic Lyz628 A/ G Ratio 1.6 Ratio 09/08/2018 Comp Metabolic Rfw547 Os mo 272 mOsmo 09/08/2018 Vitamin D 25 Oh Rcl7609 VITAMIN D, 25 HYDROXY 37.17 ng/mL 09/08/2018 [...] 33.3 pg 09/08/2018 Cbc With Differential Ord2 Kidder% 8.1 % 09/08/2018 Cbc With Differential Ord2 [...] 2.44 K/ul 09/08/2018 Cbc With Differential Ord2 Kidder ABS# 0.6 K/ul 09/08/2018 Cbc With Differential Ord2 Eos ABS# 0.3 K/ul 09/08/2018 Cbc With Differential Ord2 Baso ABS# 0.0 K/ul 09/08/2018 Tsh Ord6 TSH (3rd IS) 2.72 uIU/mL 09/08/2018 Comp Metabolic Zmz369 NA 139 mEq/L 04/01/2018 Comp Metabolic Awv382 K 4.2 mEq/L 04/01/2018 Comp Metabolic Maw036 CL 102 mEq/L 04/01/2018 Comp Metabolic Qdi204 CO2 29.0 mEq/L 04/01/2018 Comp Metabolic Wwg512 AN ION GAP 12 04/01/2018 Comp Metabolic Wpv063 GL UCOSE 87 mg/dL 04/01/2018 Comp Metabolic Yho633 Cr eat 1.1 mg/dL 04/01/2018 Comp Metabolic Bpr491 eG FR 70 ml/min/1.73m2 04/01 Comp Metabolic Nqi073 BUN 21 mg/dL 04/01/2018 Comp Metabolic Zmx750 B/ C Ratio 19.4 Ratio 04/01/2018 Comp Metabolic Thp708 CA LCIUM 9.1 mg/dL 04/01/2018 Comp Metabolic Pxf018 AL K PHOS 60 U/L 04/01/2018 Comp Metabolic Qza272 T(SGOT) 15 U/L 04/01/2018 Comp Metabolic Dgo565 AL T(SGPT) 18 U/L 04/01/2018 Comp Metabolic Ttg321 BI LI T 0.4 mg/dL 04/01/2018 Comp Metabolic Efc737 AL BUMIN 4.0 g/dL 04/01/2018 Comp Metabolic Ied779 TP RO 6.5 g/dL 04/01/2018 Comp Metabolic Jrn430 GL OB 2.5 g/dL 04/01/2018 Comp Metabolic Eye895 A/ G Ratio 1.6 Ratio 04/01/2018 Comp Metabolic Ene945 Os mo 280 mOsmo 04/01/2018 Lipid Ord30 [...] 34.3 pg 04/01/2018 Cbc With Differential Ord2 Kidder% 6.0 % 04/01/2018 Cbc With Differential Ord2 [...] 3.25 K/ul 04/01/2018 Cbc With Differential Ord2 Kidder ABS# 0.6 K/ul 04/01/2018 Cbc With Differential Ord2 Eos ABS# 0.4 K/ul 04/01/2018 Cbc With Differential Ord2 Baso ABS# 0.0 K/ul 04/01/2018 %Hba1C Vrn632 % HbA1c 70984-2 8.0 % 04/01/2018 %Hba1C Ltr288 Gluc Ave 183 mg/dL 04/01/2018 Testosterone Syz943 Testo 111.3 ng/dL 04/01/2018 Testosterone Mxr255 Testo 135.4 ng/dL 01/14/2018 Cbc With Differential [...] 36.0 pg 01/14/2018 Cbc With Differential Ord2 Kidder% 6.8 % 01/14/2018 Cbc With Differential Ord2 [...] 2.71 K/ul 01/14/2018 Cbc With Differential Ord2 Kidder ABS# 0.8 K/ul 01/14/2018 Cbc With Differential Ord2 Eos ABS# 0.2 K/ul 01/14/2018 Cbc With Differential Ord2 Baso ABS# 0.0 K/ul 01/14/2018 Comp Metabolic Slj705 NA 134 mEq/L 11/20/2017 Comp Metabolic Tby406 K 4.4 mEq/L 11/20/2017 Comp Metabolic Vnf765 CL 99 mEq/L 11/20/2017 Comp Metabolic Tsx026 CO2 29.0 mEq/L 11/20/2017 Comp Metabolic Mdv371 AN ION GAP 10 11/20/2017 Comp Metabolic Egc266 GL UCOSE 218 mg/dL 11/20/2017 Comp Metabolic Nkg240 Cr eat 1.0 mg/dL 11/20/2017 Comp Metabolic Jan922 eG FR 78 ml/min/1.73m2 11/20 Comp Metabolic Pxa437 BUN 13 mg/dL 11/20/2017 Comp Metabolic Tge564 B/ C Ratio 13.3 Ratio 11/20/2017 Comp Metabolic Dtf441 CA LCIUM 9.0 mg/dL 11/20/2017 Comp Metabolic Ezm898 AL K PHOS 71 U/L 11/20/2017 Comp Metabolic Bhl047 T(SGOT) 18 U/L 11/20/2017 Comp Metabolic Olo971 AL T(SGPT) 17 U/L 11/20/2017 Comp Metabolic Xjb349 BI LI T 0.4 mg/dL 11/20/2017 Comp Metabolic Jni443 AL BUMIN 4.1 g/dL 11/20/2017 Comp Metabolic Fpj529 TP RO 6.5 g/dL 11/20/2017 Comp Metabolic Rbx975 GL OB 2.4 g/dL 11/20/2017 Comp Metabolic Vyr325 A/ G Ratio 1.8 Ratio 11/20/2017 Comp Metabolic Kwj965 Os mo 275 mOsmo 11/20/2017 Cbc With [...] 35.2 pg 11/20/2017 Cbc With Differential Ord2 Kidder% 7.2 % 11/20/2017 Cbc With Differential Ord2 [...] 3.34 K/ul 11/20/2017 Cbc With Differential Ord2 Kidder ABS# 0.6 K/ul 11/20/2017 Cbc With Differential Ord2 Eos ABS# 0.3 K/ul 11/20/2017 Cbc With Differential Ord2 Baso ABS# 0.0 K/ul 11/20/2017 Vitamin D 25 Oh Vzb0498 VITAMIN D, 25 HYDROXY 43.72 ng/mL 11/20/2017 %Hba1C Yxa118 % HbA1c 09031-0 7.4 % 11/20/2017 %Hba1C Fde932 Gluc Ave 166 mg/dL 11/20/2017 %Hba1C Zsd031 % HbA1c 76936-8 7.2 % 08/20/2017 %Hba1C Qtm607 Gluc Ave 160 mg/dL 08/20/2017 Lipid Ord30 [...] 34.7 pg 08/20/2017 Cbc With Differential Ord2 Kidder% 7.6 % 08/20/2017 Cbc With Differential Ord2 [...] 2.42 K/ul 08/20/2017 Cbc With Differential Ord2 Kidder ABS# 0.6 K/ul 08/20/2017 Cbc With Differential Ord2 Eos ABS# 0.3 K/ul 08/20/2017 Cbc With Differential Ord2 Baso ABS# 0.0 K/ul 08/20/2017 Tsh Ord6 hTSH II 2.27 uIU/mL 08/20/2017 Comp Metabolic Pxb010 NA 138 mEq/L 08/20/2017 Comp Metabolic Iip625 K 4.3 mEq/L 08/20/2017 Comp Metabolic Mbg092 CL 102 mEq/L 08/20/2017 Comp Metabolic Dlq621 CO2 29.0 mEq/L 08/20/2017 Comp Metabolic Aef275 AN ION GAP 11 08/20/2017 Comp Metabolic Aor063 GL UCOSE 89 mg/dL 08/20/2017 Comp Metabolic Tfo347 Cr eat 1.0 mg/dL 08/20/2017 Comp Metabolic Kfn745 eG FR 80 ml/min/1.73m2 08/20 Comp Metabolic Orz754 BUN 13 mg/dL 08/20/2017 Comp Metabolic Lby305 B/ C Ratio 13.5 Ratio 08/20/2017 Comp Metabolic Pbc831 CA LCIUM 9.2 mg/dL 08/20/2017 Comp Metabolic Wyr890 AL K PHOS 69 U/L 08/20/2017 Comp Metabolic Qdx905 T(SGOT) 18 U/L 08/20/2017 Comp Metabolic Uni732 AL T(SGPT) 19 U/L 08/20/2017 Comp Metabolic Reb660 BI LI T 0.6 mg/dL 08/20/2017 Comp Metabolic Kvg644 AL BUMIN 4.0 g/dL 08/20/2017 Comp Metabolic Sds545 TP RO 6.6 g/dL 08/20/2017 Comp Metabolic Dxj457 GL OB 2.6 g/dL 08/20/2017 Comp Metabolic Fhl861 A/ G Ratio 1.5 Ratio 08/20/2017 Comp Metabolic Lrz336 Os mo 275 mOsmo 08/20/2017 Vitamin D 25 Oh Zil2123 VITAMIN D, 25 HYDROXY 30.96 ng/mL 08/20/2017 B12 Phl219 B12 >1500.00 pg/ml 02/22/2017 Cbc With Differential [...] 35.7 pg 02/20/2017 Cbc With Differential Ord2 Kidder% 6.3 % 02/20/2017 Cbc With Differential Ord2 [...] 3.19 K/ul 02/20/2017 Cbc With Differential Ord2 Kidder ABS# 0.5 K/ul 02/20/2017 Cbc With Differential Ord2 Eos ABS# 0.4 K/ul 02/20/2017 Cbc With Differential Ord2 Baso ABS# 0.0 K/ul 02/20/2017 Comp Metabolic Jke254 NA 138 mEq/L 02/20/2017 Comp Metabolic Dbp321 K 4.5 mEq/L 02/20/2017 Comp Metabolic Hfj658 CL 101 mEq/L 02/20/2017 Comp Metabolic Ikl445 CO2 31.0 mEq/L 02/20/2017 Comp Metabolic Ool185 AN ION GAP 11 02/20/2017 Comp Metabolic Ijz763 GL UCOSE 120 mg/dL 02/20/2017 Comp Metabolic Drr352 Cr eat 0.9 mg/dL 02/20/2017 Comp Metabolic Mql013 eG FR 83 ml/min/1.73m2 02/20 Comp Metabolic Hqc685 BUN 15 mg/dL 02/20/2017 Comp Metabolic Xdr420 B/ C Ratio 16.1 Ratio 02/20/2017 Comp Metabolic Brc813 CA LCIUM 9.1 mg/dL 02/20/2017 Comp Metabolic Ipb457 AL K PHOS 67 U/L 02/20/2017 Comp Metabolic Ofb164 T(SGOT) 15 U/L 02/20/2017 Comp Metabolic Fts074 AL T(SGPT) 16 U/L 02/20/2017 Comp Metabolic Pzw605 BI LI T 0.5 mg/dL 02/20/2017 Comp Metabolic Afa250 AL BUMIN 4.0 g/dL 02/20/2017 Comp Metabolic Mcj243 TP RO 6.4 g/dL 02/20/2017 Comp Metabolic Wql371 GL OB 2.4 g/dL 02/20/2017 Comp Metabolic Znh972 A/ G Ratio 1.7 Ratio 02/20/2017 Comp Metabolic Toi397 Os mo 278 mOsmo 02/20/2017 Tsh Ord6 hTSH II 2.05 uIU/mL 02/20/2017 %Hba1C Ykl691 % HbA1c 22818-1 7.6 % 02/20/2017 %Hba1C Tif482 Gluc Ave 171 mg/dL 02/20/2017 Vitamin D 25 Oh Idm0759 VITAMIN D, 25 HYDROXY 44.40 ng/mL 12/21/2016 Comp Metabolic Yzl092 NA 131 mEq/L 12/21/2016 Comp Metabolic Ryc078 K 4.2 mEq/L 12/21/2016 Comp Metabolic Scc962 CL 97 mEq/L 12/21/2016 Comp Metabolic Hbb745 CO2 27.0 mEq/L 12/21/2016 Comp Metabolic Tca438 AN ION GAP 11 12/21/2016 Comp Metabolic Zua171 GL UCOSE 266 mg/dL 12/21/2016 Comp Metabolic Zfn056 Cr eat 0.9 mg/dL 12/21/2016 Comp Metabolic Hvh850 eG FR 88 ml/min/1.73m2 12/21 Comp Metabolic Hxe447 BUN 12 mg/dL 12/21/2016 Comp Metabolic Zva913 B/ C Ratio 13.6 Ratio 12/21/2016 Comp Metabolic Gkl298 CA LCIUM 8.6 mg/dL 12/21/2016 Comp Metabolic Gqc745 AL K PHOS 69 U/L 12/21/2016 Comp Metabolic Iev435 T(SGOT) 15 U/L 12/21/2016 Comp Metabolic Yqn740 AL T(SGPT) 14 U/L 12/21/2016 Comp Metabolic Vyt273 BI LI T 0.3 mg/dL 12/21/2016 Comp Metabolic Vwt790 AL BUMIN 3.7 g/dL 12/21/2016 Comp Metabolic Jar649 TP RO 5.9 g/dL 12/21/2016 Comp Metabolic Rap543 GL OB 2.2 g/dL 12/21/2016 Comp Metabolic Qgx661 A/ G Ratio 1.7 Ratio 12/21/2016 Comp Metabolic Cyj226 Os mo 272 mOsmo 12/21/2016 Cbc With [...] 34.6 pg 12/21/2016 Cbc With Differential Ord2 Kidder% 6.9 % 12/21/2016 Cbc With Differential Ord2 [...] 2.05 K/ul 12/21/2016 Cbc With Differential Ord2 Kidder ABS# 0.4 K/ul 12/21/2016 Cbc With Differential Ord2 Eos ABS# 0.2 K/ul 12/21/2016 Cbc With Differential Ord2 Baso ABS# 0.0 K/ul 12/21/2016 Comp Metabolic Asi133 NA 138 mEq/L 09/03/2016 Comp Metabolic Eoy973 K 4.5 mEq/L 09/03/2016 Comp Metabolic Dha407 CL 102 mEq/L 09/03/2016 Comp Metabolic Kkf730 CO2 30.0 mEq/L 09/03/2016 Comp Metabolic Ufn647 AN ION GAP 11 09/03/2016 Comp Metabolic Dbi271 GL UCOSE 113 mg/dL 09/03/2016 Comp Metabolic Zmj002 Cr eat 1.0 mg/dL 09/03/2016 Comp Metabolic Mjn369 eG FR 81 ml/min/1.73m2 09/03 Comp Metabolic Liu889 BUN 10 mg/dL 09/03/2016 Comp Metabolic Ken335 B/ C Ratio 10.5 Ratio 09/03/2016 Comp Metabolic Baq580 CA LCIUM 9.1 mg/dL 09/03/2016 Comp Metabolic Iwq401 AL K PHOS 71 U/L 09/03/2016 Comp Metabolic Mqt081 T(SGOT) 18 U/L 09/03/2016 Comp Metabolic Ezs717 AL T(SGPT) 17 U/L 09/03/2016 Comp Metabolic Tzl703 BI LI T 0.6 mg/dL 09/03/2016 Comp Metabolic Hav493 AL BUMIN 4.1 g/dL 09/03/2016 Comp Metabolic Jsj035 TP RO 6.4 g/dL 09/03/2016 Comp Metabolic Ecl027 GL OB 2.3 g/dL 09/03/2016 Comp Metabolic Dca957 A/ G Ratio 1.8 Ratio 09/03/2016 Comp Metabolic Kfh289 Os mo 276 mOsmo 09/03/2016 Vitamin D 25 Oh Gnv1212 VITAMIN D, 25 HYDROXY 28.23 ng/mL 09/03/2016 [...] 34.4 pg 09/03/2016 Cbc With Differential Ord2 Kidder% 8.9 % 09/03/2016 Cbc With Differential Ord2 [...] 3.34 K/ul 09/03/2016 Cbc With Differential Ord2 Kidder ABS# 0.7 K/ul 09/03/2016 Cbc With Differential Ord2 Eos ABS# 0.4 K/ul 09/03/2016 Cbc With Differential Ord2 Baso ABS# 0.0 K/ul 09/03/2016 Lipid Ord30 CHOL 120 mg/dL 09/03/2016 Lipid Ord30 HDL 33.0 mg/dl 09/03/2016 Lipid Ord30 TRIG 161 mg/dL 09/03/2016 Lipid Ord30 LDL 55 mg/dL 09/03/2016 Lipid Ord30 C/HDL 3.6 Ratio 09/03/2016 %Hba1C Vmo539 % HbA1c 40832-0 7.5 % 09/03/2016 %Hba1C Ifq566 Gluc Ave 169 mg/dL 09/03/2016 Tsh Ord6 hTSH II 1.50 uIU/mL 05/23/2016 %Hba1C Udg789 % HbA1c 88662-5 7.6 % 05/23/2016 %Hba1C Jti917 Gluc Ave 171 mg/dL 05/23/2016 Comp Metabolic Lmr324 NA 135 mEq/L 05/23/2016 Comp Metabolic Tgm411 K 4.4 mEq/L 05/23/2016 Comp Metabolic Cyc516 CL 99 mEq/L 05/23/2016 Comp Metabolic Mkn708 CO2 28.0 mEq/L 05/23/2016 Comp Metabolic Jmg605 AN ION GAP 12 05/23/2016 Comp Metabolic Mzn906 GL UCOSE 257 mg/dL 05/23/2016 Comp Metabolic Vmt838 Cr eat 0.8 mg/dL 05/23/2016 Comp Metabolic Pcl225 eG FR 95 ml/min/1.73m2 05/23 Comp Metabolic God920 BUN 11 mg/dL 05/23/2016 Comp Metabolic Lkd323 B/ C Ratio 13.3 Ratio 05/23/2016 Comp Metabolic Ald389 CA LCIUM 9.0 mg/dL 05/23/2016 Comp Metabolic Gvz707 AL K PHOS 82 U/L 05/23/2016 Comp Metabolic Uyz791 T(SGOT) 21 U/L 05/23/2016 Comp Metabolic Seb392 AL T(SGPT) 20 U/L 05/23/2016 Comp Metabolic Rlx630 BI LI T 0.3 mg/dL 05/23/2016 Comp Metabolic Cpm615 AL BUMIN 4.0 g/dL 05/23/2016 Comp Metabolic Zoj876 TP RO 6.4 g/dL 05/23/2016 Comp Metabolic Tan490 GL OB 2.4 g/dL 05/23/2016 Comp Metabolic Ppr579 A/ G Ratio 1.6 Ratio 05/23/2016 Comp Metabolic Qaj959 Os mo 278 mOsmo 05/23/2016 Cbc With [...] 34.5 pg 05/23/2016 Cbc With Differential Ord2 Kidder% 6.1 % 05/23/2016 Cbc With Differential Ord2 [...] 2.38 K/ul 05/23/2016 Cbc With Differential Ord2 Kidder ABS# 0.4 K/ul 05/23/2016 Cbc With Differential Ord2 Eos ABS# 0.2 K/ul 05/23/2016 Cbc With Differential Ord2 Baso ABS# 0.0 K/ul 05/23/2016 B12 Zpb835 B12 597.00 pg/ml 05/23/2016 Metabolic Ord15 NA [...] 0.92 uIU/mL 07/29/2015 Vitamin D 25 Oh Pxp2213 VITAMIN D, 25 HYDROXY 26.93 ng/mL 07/29/2015 %Hba1C Zzv385 % HbA1c 95236-0 8.8 % 07/29/2015 %Hba1C Lcl350 Gluc Ave 206 mg/dL 07/29/2015 Cbc With [...] Ord2 RDW 14.9 % 07/29/2015 Comp Metabolic Jpx784 NA 138 mEq/L 07/29/2015 Comp Metabolic Qrb029 K 4.4 mEq/L 07/29/2015 Comp Metabolic Yvs688 CL 102 mEq/L 07/29/2015 Comp Metabolic Kzy667 CO2 28.0 mEq/L 07/29/2015 Comp Metabolic Tfv316 AN ION GAP 12 07/29/2015 Comp Metabolic Uqk906 GL UCOSE 261 mg/dL 07/29/2015 Comp Metabolic Kfh860 Cr eat 1.0 mg/dL 07/29/2015 Comp Metabolic Jgs679 eG FR 77 ml/min/1.73m2 07/29 Comp Metabolic Lfn819 BUN 13 mg/dL 07/29/2015 Comp Metabolic Wou084 B/ C Ratio 13.0 Ratio 07/29/2015 Comp Metabolic Blu847 CA LCIUM 9.1 mg/dL 07/29/2015 Comp Metabolic Tdj402 AL K PHOS 64 U/L 07/29/2015 Comp Metabolic Rwo553 T(SGOT) 20 U/L 07/29/2015 Comp Metabolic Iqj116 AL T(SGPT) 22 U/L 07/29/2015 Comp Metabolic Stp968 BI LI T 0.4 mg/dL 07/29/2015 Comp Metabolic Ekm814 AL BUMIN 4.0 g/dL 07/29/2015 Comp Metabolic Fxr693 TP RO 6.1 g/dL 07/29/2015 Comp Metabolic Kkg520 GL OB 2.1 g/dL 07/29/2015 Comp Metabolic Xrt750 A/ G Ratio 1.9 Ratio 07/29/2015 Comp Metabolic Eqi980 Os mo 285 mOsmo 07/29/2015 Cbc With [...] Ord2 RDW 13.1 % 05/06/2015 Comp Metabolic Bmd119 NA 134 mEq/L 05/06/2015 Comp Metabolic Dnh918 K 4.4 mEq/L 05/06/2015 Comp Metabolic Twu981 CL 98 mEq/L 05/06/2015 Comp Metabolic Jjf241 CO2 29.0 mEq/L 05/06/2015 Comp Metabolic Vlq112 AN ION GAP 11 05/06/2015 Comp Metabolic Bzf714 GL UCOSE 321 mg/dL 05/06/2015 Comp Metabolic Dls027 Cr eat 1.0 mg/dL 05/06/2015 Comp Metabolic Reb225 eG FR 78 ml/min/1.73m2 05/06 Comp Metabolic Ohm185 BUN 20 mg/dL 05/06/2015 Comp Metabolic Hlb803 B/ C Ratio 20.4 Ratio 05/06/2015 Comp Metabolic Gna852 CA LCIUM 9.5 mg/dL 05/06/2015 Comp Metabolic Dbf767 AL K PHOS 62 U/L 05/06/2015 Comp Metabolic Hrg503 T(SGOT) 21 U/L 05/06/2015 Comp Metabolic Rpk056 AL T(SGPT) 37 U/L 05/06/2015 Comp Metabolic Vig969 BI LI T 0.4 mg/dL 05/06/2015 Comp Metabolic Tvf279 AL BUMIN 3.8 g/dL 05/06/2015 Comp Metabolic Rfq649 TP RO 6.1 g/dL 05/06/2015 Comp Metabolic Jpq558 GL OB 2.3 g/dL 05/06/2015 Comp Metabolic Zjp713 A/ G Ratio 1.7 Ratio 05/06/2015 Comp Metabolic Ryr992 Os mo 283 mOsmo 05/06/2015 Tsh Ord6 hTSH II 1.65 uIU/mL 02/18/2015 B12 Qzt596 B12 605.00 pg/ml 02/18/2015 %Hba1C Rtz425 % HbA1c 80917-9 8.3 % 02/18/2015 %Hba1C Qfe088 Gluc Ave 192 mg/dL 02/18/2015 Cbc With [...] Ord2 RDW 13.9 % 02/17/2015 Comp Metabolic Lrm127 NA 137 mEq/L 02/17/2015 Comp Metabolic Rwr181 K 4.4 mEq/L 02/17/2015 Comp Metabolic Lif416 CL 100 mEq/L 02/17/2015 Comp Metabolic Byn569 CO2 31.0 mEq/L 02/17/2015 Comp Metabolic Mjf059 AN ION GAP 10 02/17/2015 Comp Metabolic Nvz132 GL UCOSE 307 mg/dL 02/17/2015 Comp Metabolic Upe315 Cr eat 1.0 mg/dL 02/17/2015 Comp Metabolic Xql507 eG FR 74 ml/min/1.73m2 02/17 Comp Metabolic Dmv127 BUN 22 mg/dL 02/17/2015 Comp Metabolic Awp332 B/ C Ratio 21.4 Ratio 02/17/2015 Comp Metabolic Mqx238 CA LCIUM 9.5 mg/dL 02/17/2015 Comp Metabolic Hvc807 AL K PHOS 78 U/L 02/17/2015 Comp Metabolic Gze063 T(SGOT) 18 U/L 02/17/2015 Comp Metabolic Pwx313 AL T(SGPT) 32 U/L 02/17/2015 Comp Metabolic Lwj312 BI LI T 0.5 mg/dL 02/17/2015 Comp Metabolic Hhc531 AL BUMIN 4.3 g/dL 02/17/2015 Comp Metabolic Dio373 TP RO 6.7 g/dL 02/17/2015 Comp Metabolic Mfj487 GL OB 2.4 g/dL 02/17/2015 Comp Metabolic Dvc090 A/ G Ratio 1.8 Ratio 02/17/2015 Comp Metabolic Hjt717 Os mo 289 mOsmo 02/17/2015 Review of [...] gait 10/17/2018 None Full Exam - General 1995 Musculoskeletal gait and station Overall: normal station 10/17/2018 None Full Exam - General 1995 Musculoskeletal head and neck Overall: head atraumatic [...] inspection of skin Location: face 03/07/2015 on mormonism, cheeks,actinic keratosis with irritation on left cheek - left mormonism - croptherapy on these two lesions - [...] Procedure Codes Date THER/PROPH/DIAG INJ SC/IM CPT-4: 47960 01/30/2019 THER/PROPH/DIAG INJ SC/IM CPT-4: 51213 01/16/2019 THER/PROPH/DIAG INJ SC/IM CPT-4: 36892 01/01/2019 THER/PROPH/DIAG INJ SC/IM CPT-4: 26998 12/17/2018 THER/PROPH/DIAG INJ SC/IM CPT-4: 23860 12/02/2018 THER/PROPH/DIAG INJ SC/IM CPT-4: 78358 11/18/2018 THER/PROPH/DIAG INJ SC/IM CPT-4: 65333 11/04/2018 THER/PROPH/DIAG INJ SC/IM CPT-4: 82745 10/14/2018 THER/PROPH/DIAG INJ SC/IM CPT-4: 43477 10/03/2018 THER/PROPH/DIAG INJ SC/IM CPT-4: 73734 09/23/2018 THER/PROPH/DIAG INJ SC/IM CPT-4: 30711 09/02/2018 THER/PROPH/DIAG INJ SC/IM CPT-4: 54507 08/21/2018 THER/PROPH/DIAG INJ SC/IM CPT-4: 90124 08/08/2018 THER/PROPH/DIAG INJ SC/IM CPT-4: 30213 07/28/2018 THER/PROPH/DIAG INJ SC/IM CPT-4: 59098 07/16/2018 THER/PROPH/DIAG INJ SC/IM CPT-4: 82073 07/02/2018 PPPS, SUBSEQ VISIT CPT- 4: G0439 06/30/2018 THER/PROPH/DIAG INJ SC/IM CPT-4: 14071 06/24/2018 THER/PROPH/DIAG INJ SC/IM CPT-4: 18444 06/13/2018 ADMIN INFLUENZA VIRU S VAC CPT-4: G0008 06/06/2018 FLU VACC PRSV FREE I NC ANTIG CPT-4: 55332 06/06/2018 THER/PROPH/DIAG INJ SC/IM CPT-4: 85249 06/05/2018 THER/PROPH/DIAG INJ SC/IM CPT-4: 20120 05/30/2018 THER/PROPH/DIAG INJ SC/IM CPT-4: 87400 05/22/2018 THER/PROPH/DIAG INJ SC/IM CPT-4: 66928 05/12/2018 THER/PROPH/DIAG INJ SC/IM CPT-4: 04654 05/02/2018 THER/PROPH/DIAG INJ SC/IM CPT-4: 78403 04/24/2018 THER/PROPH/DIAG INJ SC/IM CPT-4: 13193 04/17/2018 KETOROLAC TROMETHAMI NE INJ CPT-4: J1885 03/07/2018 URINALYSIS NONAUTO W /O SCOPE CPT-4: 15441 03/07/2018 THER/PROPH/DIAG INJ SC/IM CPT-4: 12796 02/20/2018 TRIAMCINOLONE ACET I [place] NOS CPT-4: J3301 01/30/2018 THER/PROPH/DIAG INJ SC/IM CPT-4: 01089 01/17/2018 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 3-[address]: [id number] CPT-4: G0436 04/25/2017 ADMIN INFLUENZA VIRU S VAC CPT-4: G0008 04/25/2017 ADMIN PNEUMOCOCCAL V ACCINE SNOMED CT: 09106397 CPT-4: G0009 04/25/2017 PNEUMOCOCCAL VACC [address]: 70580731 CPT-4: 40287 04/25/2017 FLU VACC PRSV FREE I NC ANTIG CPT-4: 58181 04/25/2017 ADMIN INFLUENZA VIRU S VAC CPT-4: G0008 05/22/2016 FLU VACC 4 TELLY 3 YRS PLUS IM Formatting Model/CDA Sections, Assigned to/Angela Clemons SNOMED CT: [id number] CPT-4: 91810Vgywrhw 05/22/2016 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 3-[address]: 020807168 CPT-4: G0436 11/25/2015 URINALYSIS NONAUTO W /O SCOPE CPT-4: 73366 05/09/2015 TRIAMCINOLONE ACET I [place] NOS CPT-4: J3301 04/12/2015 DESTRUCT PREMALG LESION CPT-4: 26185 03/07/2015 DESTRUCT PREMALG LES 2-14 CPT-4: 85407 03/07/2015 REMOVE IMPACTED EAR WAX UNI CPT-4: 08354 12/31/2014 THER/PROPH/DIAG INJ SC/IM CPT-4: 11339 12/23/2014 TRIAMCINOLONE ACET I [place] NOS CPT-4: J3301 12/23/2014 Vital Signs Date Vital 12/02/2018 Blood Pressure 1: 140/70 Code: 8480-6 BMI: 21.9 Code: 21082-2 Heart Rate 1: 61 bpm Height: 5'11" SpO2: 94% Weight: 157 lbs 10/17/2018 Blood Pressure 1: 124/54 Code: 8480-6 BMI: 21.9 Code: 78429-2 Heart Rate 1: 64 bpm Height: 5'11" SpO2: 93% Weight: 157 lbs 09/02/2018 Blood Pressure 1: 140/80 Code: 8480-6 BMI: 21.2 Code: 05180-9 Heart Rate 1: 68 bpm Height: 5'11" SpO2: 97% Weight: 152 lbs 06/30/2018 BMI: 21.8 Code: 56024-4 Height: 5'11" Weight: 156 lbs 06/06/2018 Blood Pressure 1: 128/76 Code: 8480-6 BMI: 22.0 Code: 99840-7 Heart Rate 1: 81 bpm Height: 5'11" SpO2: 92% Weight: 158 lbs 04/04/2018 Blood Pressure 1: 124/70 Code: 8480-6 BMI: 20.8 Code: 05830-1 Heart Rate 1: 65 bpm Height: 5'11" SpO2: 95% Weight: 149 lbs 03/07/2018 Blood Pressure 1: 148/70 Code: 8480-6 BMI: 21.2 Code: 15984-0 Heart Rate 1: 66 bpm Height: 5'11" SpO2: 94% Weight: 152 lbs 02/20/2018 Blood Pressure 1: 134/58 Code: 8480-6 BMI: 20.5 Code: 85511-0 Heart Rate 1: 61 bpm Height: 5'11" SpO2: 92% Weight: 147 lbs 01/30/2018 Blood Pressure 1: 158/68 Code: 8480-6 BMI: 21.5 Code: 24021-1 Heart Rate 1: 71 bpm Height: 5'11" SpO2: 92% Weight: 154 lbs 01/14/2018 Blood Pressure 1: 156/70 Code: 8480-6 Height: Weight: 01/13/2018 Blood Pressure 1: 148/62 Code: 8480-6 BMI: 20.9 Code: 90876-2 Heart Rate 1: 54 bpm Height: 5'11" SpO2: 97% Weight: 150 lbs 11/19/2017 Blood Pressure 1: 150/60 Code: 8480-6 BMI: 21.8 Code: 23962-2 Heart Rate 1: 63 bpm Height: 5'11" SpO2: 98% Weight: 156 lbs 10/02/2017 Blood Pressure 1: 168/60 Code: 8480-6 BMI: 21.9 Code: 46372-8 Heart Rate 1: 52 bpm Height: 5'11" SpO2: 97% Weight: 157 lbs 07/23/2017 Blood Pressure 1: 170/70 Code: 8480-6 BMI: 21.8 Code: 75584-3 Heart Rate 1: 65 bpm Height: 5'11" SpO2: 98% Weight: 156 lbs 04/25/2017 Blood Pressure 1: 138/60 Code: 8480-6 BMI: 21.6 Code: 52284-2 Heart Rate 1: 55 bpm Height: 5'11" SpO2: 93% Weight: 155 lbs 02/19/2017 Blood Pressure 1: 138/64 Code: 8480-6 BMI: 21.3 Code: 32548-4 Heart Rate 1: 52 bpm Height: 5'11" SpO2: 96% Weight: 152 lbs 8 oz 01/21/2017 Blood Pressure 1: 160/68 Code: 8480-6 BMI: 21.3 Code: 41650-1 Heart Rate 1: 62 bpm Height: 5'11" SpO2: 96% Weight: 153 lbs 12/20/2016 Blood Pressure 1: 124/66 Code: 8480-6 BMI: 21.5 Code: 92890-8 Height: 5'11" Weight: 154 lbs 08/23/2016 Blood Pressure 1: 142/52 Code: 8480-6 BMI: 21.2 Code: 70435-4 Heart Rate 1: 54 bpm Height: 5'11" SpO2: 96% Weight: 152 lbs 05/22/2016 Blood Pressure 1: 130/76 Code: 8480-6 BMI: 21.5 Code: 41032-8 Heart Rate 1: 78 bpm Height: 5'11" SpO2: 92% Weight: 154 lbs 02/24/2016 Blood Pressure 1: 128/80 Code: 8480-6 BMI: 21.2 Code: 24454-4 Heart Rate 1: 74 bpm Height: 5'11" SpO2: 96% Weight: 152 lbs 01/27/2016 Blood Pressure 1: 144/60 Code: 8480-6 BMI: 21.2 Code: 15813-8 Heart Rate 1: 74 bpm Height: 5'11" SpO2: 97% Weight: 152 lbs 11/25/2015 Blood Pressure 1: 110/52 Code: 8480-6 BMI: 21.9 Code: 98988-1 Heart Rate 1: 65 bpm Height: 5'11" SpO2: 92% Weight: 157 lbs 07/28/2015 Blood Pressure 1: 138/62 Code: 8480-6 BMI: 21.8 Code: 27099-2 Heart Rate 1: 63 bpm Height: 5'11" SpO2: 91% Weight: 156 lbs 05/26/2015 Blood Pressure 1: 120/58 Code: 8480-6 BMI: 21.5 Code: 96386-7 Heart Rate 1: 99 bpm Height: 5'11" SpO2: 96% Weight: 154 lbs 05/06/2015 Blood Pressure 1: 120/58 Code: 8480-6 BMI: 21.2 Code: 06491-5 Heart Rate 1: 66 bpm Height: 5'11" SpO2: 96% Weight: 152 lbs 04/25/2015 Blood Pressure 1: 136/62 Code: 8480-6 BMI: 21.2 Code: 69137-5 Heart Rate 1: 63 bpm Height: 5'11" SpO2: 97% Weight: 152 lbs 04/12/2015 Blood Pressure 1: 160/58 Code: 8480-6 BMI: 21.6 Code: 05090-0 Heart Rate 1: 62 bpm Height: 5'11" Weight: 155 lbs 03/24/2015 Blood Pressure 1: 138/68 Code: 8480-6 BMI: 22.0 Code: 15157-9 Heart Rate 1: 65 bpm Height: 5'11" SpO2: 96% Weight: 158 lbs 03/07/2015 Blood Pressure 1: 116/52 Code: 8480-6 BMI: 22.2 Code: 48143-7 Heart Rate 1: 64 bpm Height: 5'11" SpO2: 97% Weight: 159 lbs 02/17/2015 Blood Pressure 1: 148/58 Code: 8480-6 BMI: 21.3 Code: 38321-1 Heart Rate 1: 63 bpm Height: 5'11" SpO2: 97% Weight: 153 lbs 12/31/2014 Blood Pressure 1: 100/60 Code: 8480-6 BMI: 21.8 Code: 09629-4 Heart Rate 1: 68 bpm Height: 5'11" Weight: 156 lbs 12/23/2014 Blood Pressure 1: 148/64 Code: 8480-6 BMI: 21.9 Code: 34456-2 Heart Rate 1: 64 bpm Height: 5'11" [...] 01/14/2018 None cough Location in the jorge 01/13/2018 None cough Quality constant 01/13/2018 None [...] Encounters Encounter Performer Loca tion Codes Date ([id number]) 63882 EST. 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 P [facility], LEVEL III Diagnosis: Orthostatic hypotension[ICD10: I95.1] Diagnosis: Low back pain[ICD10: M54.5] Diagnosis: Unsteadiness on feet[ICD10: R26.81] Karmen Ash MD, [facility] CPT-4: 52005 10/17/2018 [id number] EST. 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 P ATIENT, LEVEL IV Diagnosis: Cellulitis of face[ICD10: L03.211] Diagnosis: Type 2 diabetes mellitus without complications[ICD10: E11.9] Diagnosis: Essential (primary) hypertension[ICD10: I10] Diagnosis: Encounter for immunization[ICD10: Z23] Karmen Ash MD, [facility] CPT-4: 49527 06/06/2018 ([id number]) 52990 EST. 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 P ATIENT, LEVEL III Diagnosis: Low back pain[ICD10: M54.5] Diagnosis: Dysuria[ICD10: R30.0] Karmen Ash MD, [facility] CPT-4: 88342 03/07/2018 ([id number]) 84896 EST. 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 P ATIENT, LEVEL III Diagnosis: Chronic obstructive pulmonary disease with (acute) exacerbation[ICD10: J44.1] Karmen Ash MD, [facility] CPT-4: 26886 01/30/2018 [id number] EST. PATIENT, LEVEL II Diagnosis: Insect bite (nonvenomous), left lower leg, initial encounter[ICD10: S80.862A] Karmen Ash MD, [facility] CPT-4: 47034 01/14/2018 ([id number]) 27911 EST. P ATIENT, LEVEL IV Diagnosis: Type 2 diabetes mellitus with hyperglycemia[ICD10: E11.65] Diagnosis: Chronic obstructive pulmonary disease, unspecified[ICD10: J44.9] Diagnosis: Other fatigue[ICD10: R53.83] Karmen Ash MD, [facility] CPT- 4: 83506 01/13/2018 ([id number]) 10300 EST. P ATIENT, LEVEL IV Diagnosis: Type 2 diabetes mellitus with hyperglycemia[ICD10: E11.65] Diagnosis: Vitamin D deficiency, unspecified[ICD10: E55.9] Diagnosis: Essential (primary) hypertension[ICD10: I10] Diagnosis: Abdominal distension (gaseous)[ICD10: R14.0] Diagnosis: Drug induced constipation[ICD10: K59.03] Karmen Ash MD, [facility] CPT-4: 88873 11/19/2017 37736 EST. PATIENT, LEVEL IV Diagnosis: Low back pain[ICD10: M54.5] Diagnosis: Chronic obstructive pulmonary disease, unspecified[ICD10: J44.9] Brunilda Ash MD, [facility] CPT-4: 49300 10/02/2017 ([id number]) 67340 EST. P ATIENT, LEVEL IV Diagnosis: Essential (primary) hypertension[ICD10: I10] Diagnosis: Type 2 diabetes mellitus with hyperglycemia[ICD10: E11.65] Diagnosis: Vitamin D deficiency, unspecified[ICD10: E55.9] Diagnosis: Mixed hyperlipidemia[ICD10: E78.2] Karmen Ash MD, [facility] CPT-4: 41330 07/23/2017 ([id number]) 05446 EST. P ATIENT, LEVEL IV Diagnosis: Essential (primary) hypertension[ICD10: I10] Diagnosis: Type 2 diabetes mellitus with hyperglycemia[ICD10: E11.65] Diagnosis: Chronic obstructive pulmonary disease, unspecified[ICD10: J44.9] Diagnosis: Nicotine dependence, unspecified, uncomplicated[ICD10: F17.200] Diagnosis: Encounter for immunization[ICD10: Z23] Karmen Ash MD, [facility] CPT-4: 12998 04/25/2017 ([id number]) 75905 EST. P ATIENT, LEVEL IV Diagnosis: Type 2 diabetes mellitus with hyperglycemia[ICD10: E11.65] Diagnosis: Essential (primary) hypertension[ICD10: I10] Diagnosis: Anemia, unspecified[ICD10: D64.9] Karmen Ash MD, [facility] CPT- 4: 46079 02/19/2017 ([id number]) 89976 EST. P ATIENT, LEVEL IV Diagnosis: Slow transit constipation[ICD10: K59.01] Diagnosis: Gastro-esophageal reflux disease without esophagitis[ICD10: K21.9] Diagnosis: Essential (primary) hypertension[ICD10: I10] Karmen Ash MD, [facility] CPT-4: 87271 01/21/2017 ([id number]) 79376 EST. P ATIENT, LEVEL IV Diagnosis: Type 2 diabetes mellitus with hyperglycemia[ICD10: E11.65] Diagnosis: Vitamin D deficiency, unspecified[ICD10: E55.9] Diagnosis: Essential (primary) hypertension[ICD10: I10] Diagnosis: Chronic obstructive pulmonary disease, unspecified[ICD10: J44.9] Karmen Ash MD, [facility] CPT-4: 04249 12/20/2016 ([id number]) 67822 EST. P ATIENT, LEVEL IV Diagnosis: Type 2 diabetes mellitus with hyperglycemia[ICD10: E11.65] Diagnosis: Essential (primary) hypertension[ICD10: I10] Diagnosis: Mixed hyperlipidemia[ICD10: E78.2] Diagnosis: Vitamin D deficiency, unspecified[ICD10: E55.9] Karmen Ash MD, [facility] CPT-4: 63466 08/23/2016 ([id number]) 03675 EST. P ATIENT, LEVEL IV Diagnosis: Type 2 diabetes mellitus with hyperglycemia[ICD10: E11.65] Diagnosis: Essential (primary) hypertension[ICD10: I10] Diagnosis: Chronic obstructive pulmonary disease, unspecified[ICD10: J44.9] Karmen Ash MD, [facility] CPT-4: 53427 05/22/2016 ([id number]) 19543 EST. P ATIENT, LEVEL III Diagnosis: Dysuria[ICD10: R30.0] Diagnosis: Essential (primary) hypertension[ICD10: I10] Karmen Ash MD, [facility] CPT-4: 80804 02/24/2016 ([id number]) 37637 EST. P ATIENT, LEVEL IV Diagnosis: Gastro-esophageal reflux disease without esophagitis[ICD10: K21.9] Diagnosis: Slow transit constipation[ICD10: K59.01] Diagnosis: Type 2 diabetes mellitus with hyperglycemia[ICD10: E11.65] Karmen Ash MD, [facility] CPT-4: 23371 01/27/2016 ([id number]) 10016 EST. P ATIENT, LEVEL IV Diagnosis: Essential (primary) hypertension[ICD10: I10] Diagnosis: Type 2 diabetes mellitus with hyperglycemia[ICD10: E11.65] Diagnosis: Vitamin D deficiency, unspecified[ICD10: E55.9] Diagnosis: Chronic obstructive pulmonary disease, unspecified[ICD10: J44.9] Diagnosis: Mixed hyperlipidemia[ICD10: E78.2] Diagnosis: Tobacco use[ICD10: Z72.0] Karmen Ash MD, [facility] CPT- 4: 99345 11/25/2015 ([id number]) 83119 EST. P ATIENT, LEVEL IV Diagnosis: Type 2 diabetes mellitus with hyperglycemia[ICD10: E11.65] Diagnosis: Essential (primary) hypertension[ICD10: I10] Diagnosis: Vitamin D deficiency, unspecified[ICD10: E55.9] Karmen Ash MD, [facility] CPT-4: 15097 07/28/2015 ([id number]) 59120 EST. P ATIENT, LEVEL III Diagnosis: Type 2 diabetes mellitus with hyperglycemia[ICD10: E11.65] Diagnosis: Essential (primary) hypertension[ICD10: I10] Violeta Ash MD, [facility] CPT-4: 39702 05/26/2015 ([id number]) 60860 EST. P ATIENT, LEVEL III Diagnosis: DIABETES TYPE II[ICD9: 250.00] Diagnosis: COPD (chronic obstructive pulmonary disease)[ICD9: 496] Diagnosis: ESSENTIAL HYPERTENSION[ICD9: 401.9] Diagnosis: Cough[ICD9: 786.2] Violeta Ash MD, [facility] CPT-4: 47809 05/06/2015 ([id number]) 13719 EST. P ATIENT, LEVEL III Diagnosis: COPD (chronic obstructive pulmonary disease)[ICD9: 496] Diagnosis: DIABETES TYPE II[ICD9: 250.00] Diagnosis: Muscle ache[ICD9: 729.1] Karmen Ash MD, [facility] CPT- 4: 52021 04/25/2015 ([id number]) 57981 EST. P ATIENT, LEVEL III Diagnosis: ACTINIC KERATOSIS[ICD9: 702.0] Diagnosis: COPD (chronic obstructive pulmonary disease)[ICD9: 496] Diagnosis: DIABETES TYPE II[ICD9: 250.00] Diagnosis: ACUTE URI[ICD9: 465.9] Violeta Ash MD, [facility] CPT-4: 24117 04/12/2015 ([id number]) 60358 EST. P ATIENT, LEVEL III Diagnosis: DIABETES TYPE II[ICD9: 250.00] Violeta Ash MD, [facility] CPT-4: 13124 03/24/2015 ([id number]) 52431 EST. P ATIENT, LEVEL IV Diagnosis: DIABETES TYPE II[ICD9: 250.00] Diagnosis: Hypoglycemia[ICD9: 251.2] Diagnosis: Skin texture changes[ICD9: 782.8] Violeta Ash MD, [facility] CPT-4: 71938 03/07/2015 ([id number]) 78668 EST. P ATIENT, LEVEL IV Diagnosis: COPD (chronic obstructive pulmonary disease)[ICD9: 496] Diagnosis: Fatigue[ICD9: 780.79] Diagnosis: Insulin dependent diabetes mellitus[ICD9: 250.00] Diagnosis: Unsteady gait[ICD9: 781.2] Maame Ash MD, [facility] CPT-4: 41399 02/17/2015 ([id number]) 63851 EST. P ATIENT, LEVEL IV Diagnosis: BPPV (benign paroxysmal positional vertigo)[ICD9: 386.11] Diagnosis: Impacted cerumen[ICD9: 380.4] Diagnosis: ESSENTIAL HYPERTENSION[ICD9: 401.9] Diagnosis: Insulin dependent diabetes mellitus[ICD9: 250.00] Karmen Ash MD, [facility] CPT-4: 69706 12/23/2014 ([id number]) OFFICE [facility] - LEVEL 4 Diagnosis: Insulin dependent diabetes mellitus[ICD9: 250.00] Diagnosis: BPPV (benign paroxysmal positional vertigo)[ICD9: 386.11] Diagnosis: COPD (chronic obstructive pulmonary disease)[ICD9: 496] Diagnosis: Tobacco abuse[ICD9: 305.1] Diagnosis: Osteoarthritis[ICD9: 715.90] Karmen Ash MD, [facility] CPT- 4: 92422 12/09/2014 Plan of Care Planned Activity Notes [...] directed 12/02/2018 App[facility]ment[facility] [phone] [phone] (30 min) Complex 12/02/2018 Patient Education: Patient Medication Summary Completed 12/02/2018 Patient Education: Diabetes Completed 12/02/2018 Appointment: Injection 11/18/2018 Patient Education: Patient Medication Summary Completed 11/18/2018 Appointment: Injection 11/04/2018 Patient Education: Patient Medication Summary Completed 11/04/2018 Appointment: [facility]el[facility] [phone] [phone] (30 min) Complex 10/21/2018 Visit Plan: Orthostatic [...] a walker 10/17/2018 Appointment: Karmen Espinal WPtel: [phone] [phone] (30 min) Complex 10/17/2018 Patient [...] to medications. 09/02/2018 Appointment: Karmen Espinal WPtel: [phone] (15 min) Moderate 09/02/2018 Patient Education: [...] surrogate. 06/30/2018 Appointment: [facility]Ptel[facility] [phone] [phone] [facility] - Annual Wellness Visit 06/30/2018 [...] lesion, increase in pain. 06/06/2018 Appointment: Karmen Epsinal WPtel: [phone] (15 min) Moderate 06/06/2018 Patient Education: [...] months 04/04/2018 Appointment: Karmen Espinal WPtel: [phone] [phone] [place] (15 min) Moderate 04/04/2018 Patient Education: Patient Medication Summary Completed 04/04/2018 Care Plan: Cbc With Differential Pending 04/04/2018 Care Plan: Testosterone repeat in 2 months Pending 04/04/2018 Appointment: Karmen Espinal WPtel: [phone] [phone] [place] (15 min) Moderate 03/25/2018 Visit Plan: Low back pain -history of kidney stone-UA negative today -increase fluids and call if pain does not resolve or if any worse. 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 01/30/2018 Appointment: Karmen Espinal WPtel: [facility] [phone] (15 min) Moderate 01/30/2018 Patient Education: Patient Medication Summary Completed 01/30/2018 Appointment: Karmen Espinaltel: [facility] [place] (15 min) Moderate 01/28/2018 Appointment: Injection 01/17/2018 Patient Education: Patient Medication Summary Completed 01/17/2018 Visit Plan: Cellulitis - start oral antibiotics as directed, return to clinic as previously directed, call for acute change in symptoms, worsening redness, warmth, discharge. 01/14/2018 Appointment: Karmen Espinal WPtel: [phone] (10 min) Simple 01/14/2018 Patient Education: [...] less controlled. 01/13/2018 Appointment: Karmen Espinal WPtel: [address] [place] [address] (15 min) Moderate 01/13/2018 Patient Education: Patient Medication Summary Completed 01/13/2018 Referral: Hugo Villatoro HPtel:[phone] Patient's informed. Referral info ned monroy. [...] change in blood pressure readings at home. Stkjrmhr-znnvpo-sgqpl to see Dr Villatoro Constipation-start linzess daily 11/19/2017 Appointment: [facility]inal WPtel[facility] [phone] [phone] (30 min) Complex 11/19/2017 Patient Education: Patient Medication Summary Completed 11/19/2017 Care Plan: Referral Order bloating, nausea SNOMED-CT : [id number] Pending 11/19/2017 Visit Plan: Low back pain- [...] changes. 10/02/2017 Appointment: Brun[facility] Maravilla WPtel: [phone] [facility] (15 min) Moderate 10/02/2017 Patient Education: Patient [...] less controlled. 07/23/2017 Appointment: Karmen Espinal WPtel: [address] [place] [phone] (30 min) [facility] 07/23/2017 Patient Education: Patient Medication Summary Completed [...] pack/year history 04/25/2017 Appointment: [facility] Espinal WPtel[facility] [phone] [phone] (30 min) Complex 04/25/2017 Patient [...] readings are starting to become less controlled. Mkquup-nezcxyz-tcdyx labs 02/19/2017 Appointment: K[facility] Espinal WPtel: [phone] [phone] (30 min) Complex 02/19/2017 Patient Education: Patient [...] month 01/21/2017 Appointment: K[facility] Espinal WPtel: [phone] [phone] (30 min) Complex 01/21/2017 Patient Education: Patient Medication Summary Completed 01/21/2017 Patient Education: Smoking and Tobacco Addiction Completed 01/21/2017 Patient Education: Hypertension Completed 01/21/2017 Care Plan: Referral Order SNOMED-CT : [id number] Pending 01/21/2017 Visit Plan: Diabetes Mellitus - [...] acute changes. 12/20/2016 Appointment: Karmen Espinal WPtel: [phone] (30 min) Complex 12/20/2016 Patient Education: Patient Medication Summary Completed 12/20/2016 Patient Education: Smoking and Tobacco Addiction Completed 12/20/2016 Patient Education: Hypertension Completed 12/20/2016 Appointment: K[facility] Espinal WPtel: [phone] [phone] (30 min) Complex 09/06/2016 Visit [...] d level 08/23/2016 Appointment: Karmen Espinal WPtel: [phone] (30 min) Complex 08/23/2016 Patient Education: Patient [...] acute changes. 05/22/2016 Appointment: K[facility] Espinal WPtel: [phone] [phone] (30 min) Complex 05/22/2016 Patient Education: Patient Medication Summary Completed 05/22/2016 Patient Education: Smoking and Tobacco Addiction Completed 05/22/2016 Care Plan: Cbc With Differential Ordered 05/22/2016 Care Plan: %Hba1C KIKI C : 24955-8 Ordered 05/22/2016 Care Plan: Tsh Ordered 05/22/2016 Care Plan: Comp Metabolic Ordered 05/22/2016 Visit Plan: Hypertension - well con eugenie [...] update 02/24/2016 Appointment: Karmen Espinal WPtel: [phone] [phone] (30 min) Complex 02/24/2016 Patient Education: Patient Medication Summary Completed 02/24/2016 Patient Education: Smoking and Tobacco Addiction Completed 02/24/2016 Patient Education: Hypertension Completed 02/24/2016 Visit Plan: Diabetes Mellitus - con eugenie [...] regimen. 01/27/2016 Appointment: Karmen Espinal WPtel: [phone] [phone] (30 min) Complex 01/27/2016 Patient [...] use medication to assist cessation. COPD-sample of 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 Bgqtrwkr-berqsncd-JWLM SIMVASTATIN X 2 WEEKS AND CALL WITH [...] 04/12/2015 Visit Plan: Diabetes Mellitus - con virgieed [...] Care Plan: COMPLETE CBC AUTOMATED LOINC : 90970-8 Ordered 03/24/2015 Visit Plan: Diabetes Mellitus - [...] for removal. 03/07/2015 Appointment: Violeta Ash WPtel: [facility] (15 min) Moderate 03/07/2015 Patient Education: Patient [...] Care Plan: COMPLETE CBC AUTOMATED LOINC : 17423-6 Ordered 12/23/2014 Visit Plan: BPPV - Benign [...] next appt 12/09/2014 Appointment: Karmen Espinal WPtel: [address] [place], [place] [phone] [place] ([place]) New Patient 12/09/2014 Patient Education: Patient Medication Summary Completed 12/09/2014 Patient Education: .Amazing charts Parox ysmal positional vertigo Completed 12/09/2014 Patient Education: Smoking and Tobacco Addiction Completed 12/09/2014 Referral: Hugo Villatoro HPtel:[phone] [facility] [place] Referral Appointment Requested Referral: Luis Donohue [...] readings are starting to become less controlled. Ueaydb-rukcatj-hdmoh labs . Cellulitis - start oral antibiotics [...] change in blood pressure readings at home. Zwdnmmcj-jsfzxv-hvnpb to see Dr Villatoro Constipation-start linzess daily [...] POTENTIAL SIDE EFFECTS AND WORSENING OF SYMPTOMS. Dpgvswrx-nnnkxctx-VNTZ SIMVASTATIN X 2 WEEKS AND CALL WITH [...]
--- OUTSIDE RECORDS SUMMARY | 2020-03-29 07:57 | XMS REPORT | CCD ---
Author Author Dick Espinal Organization [facility] Address [address] [place] [address] Phone Care Team Providers Care Outdoor Emergency Care Technician Name Role Phone PP Unavailable CCM Unavailable Summary Purpose Interface Exchange Insurance Providers Payer name Policy type / Coverage type Covered libertarian ID Effective Begin Date Effective End Date WPS Medicare Part B Medicare Part B [id number] Unknown Unknown [employer] Medicar e Part B [id number] Unknown Unkn own Family history Father Diagnosis Age At Onset Cancer Unknown Mother Diagnosis Age At Onset Cancer Unknown Social History Social History Element Codes Description Effective Dates Marital status Unknown M arried 12/09/2014 Employment Unknown Retir ed 12/09/[address]: 21763787 Currently smokes tobacco 12/09/2014 Number of years using tobacco Unknown > 50 12/09/2014 Number of cigarettes/day Unknown 30 (Pack and a half) 12/09/[address]: 115964458 Never drinks alcohol 12/09/2014 Allergies, Adverse Reactions, [...] Protonix 40 mg table t,delayed release RxNorm: 058611 TAKE 1 TABLET BY MOUT H DAILY 02/02/2019 01/27/2020 Ac tive - Ref: [id number] simvastatin 40 mg ta blet RxNorm: 474115 TAKE 1 TABLET BY MOUT H DAILY AT BEDTIME 02/02/2019 01/27/2020 Ac tive - Ref: [id number] testosterone cypiona te 200 mg/mL intramuscular oil RxNorm: 9126077 Milliliter(s) IM 01/30/2019 01/30/2019 In active testosterone cypiona te 200 mg/mL intramuscular oil RxNorm: 9120800 1/2 Milliliter(s) IM [id number] 01/16/2019 05/15/2019 Active testosterone cypiona te 200 mg/mL intramuscular oil RxNorm: 8715048 Milliliter(s) IM 01/16/2019 01/16/2019 In active hydrocodone 5 mg-linh taminophen 325 mg tablet RxNorm: 775449 1 Tablet(s) PO Q6-8H as needed 01/14/2019 02/07/2019 Active testosterone cypiona te 200 mg/mL intramuscular oil RxNorm: 4794653 Milliliter(s) IM 01/01/2019 01/01/2019 In active Xanax 0.5 mg tablet RxNorm: 583232 1 Tablet(s) PO TID 12/18/2018 02/15/2019 Active testosterone cypiona te 200 mg/mL intramuscular oil RxNorm: 9354291 Milliliter(s) IM 12/17/2018 12/17/2018 In active hydrocodone 5 mg-linh taminophen 325 mg tablet RxNorm: 934283 1 Tablet(s) PO Q6-8H as needed 12/15/2018 01/08/2019 Inactive testosterone cypiona te 200 mg/mL intramuscular oil RxNorm: 5188183 Milliliter(s) IM 12/02/2018 12/02/2018 In active testosterone cypiona te 200 mg/mL intramuscular oil RxNorm: 9862850 Milliliter(s) IM 11/18/2018 11/18/2018 In active hydrocodone 5 mg-linh taminophen 325 mg tablet RxNorm: 040522 1 Tablet(s) PO Q6-8H as needed 11/13/2018 12/07/2018 Inactive testosterone cypiona te 200 mg/mL intramuscular oil RxNorm: 2917452 1/2 Milliliter(s) IM [id number] 11/04/2018 01/15/2019 Inactive testosterone cypiona te 200 mg/mL intramuscular oil RxNorm: 1128307 Milliliter(s) IM 11/04/2018 11/04/2018 In active nicotine 21 mg/24 hr daily transdermal patch RxNorm: 710776 1 TD daily 10/31/2018 10/30/2018 In active nicotine 21 mg/24 hr daily transdermal patch RxNorm: 196222 1 TD daily 10/31/2018 11/29/2018 In active meclizine 25 mg tablet RxNorm: 136438 1 Tablet(s) PO Q6 PRN TAKE ONE TABLET BY MOUTH EVERY 6 HOURS NEEDED 10/17/2018 01/14/2019 Inactive hydrocodone 5 mg-linh taminophen 325 mg tablet RxNorm: 183632 1 Tablet(s) PO Q6-8H as needed 10/17/2018 11/10/2018 Inactive metformin 500 mg tablet RxNorm: 855151 Tablet(s) TAKE 1 TABLET BY MOUTH DAILY 10/15/2018 10/09/2019 Ac tive lisinopril 10 mg tablet RxNorm: 470904 TAKE 1 TABLET BY MOUTH TWO TIMES DAILY 10/15/2018 10/09/2019 Ac tive - First Attempt Ref: [id number] testosterone cypiona te 200 mg/mL intramuscular oil RxNorm: 1923011 Milliliter(s) IM 10/14/2018 10/14/2018 In active Xanax 0.5 mg tablet RxNorm: 055179 1 Tablet(s) PO TID 10/03/2018 11/30/2018 Inactive testosterone cypiona te 200 mg/mL intramuscular oil RxNorm: 6845697 1/2 Milliliter(s) IM weekly 10/03/2018 11/03/2018 Inactive testosterone cypiona te 200 mg/mL intramuscular oil RxNorm: 3908426 Milliliter(s) IM 10/03/2018 10/03/2018 In active testosterone cypiona te 200 mg/mL intramuscular oil RxNorm: 6033125 Milliliter(s) IM 09/23/2018 09/23/2018 In active hydrocodone 5 mg-linh taminophen 325 mg tablet RxNorm: 053876 1 Tablet(s) PO Q6-8H as needed 09/22/2018 10/16/2018 Inactive testosterone cypiona te 200 mg/mL intramuscular oil RxNorm: 2052888 1/2 Milliliter(s) IM 09/02/2018 09/02/2018 Inactive testosterone enantha te 200 mg/mL intramuscular oil RxNorm: 526784 Milliliter(s) IM 08/21/2018 08/21/2018 In active hydrocodone 5 mg-linh taminophen 325 mg tablet RxNorm: 861591 1 Tablet(s) PO Q6-8H as needed 08/21/2018 09/14/2018 Inactive testosterone cypiona te 200 mg/mL intramuscular oil RxNorm: 1580168 Milliliter(s) IM 08/08/2018 08/08/2018 In active testosterone cypiona te 200 mg/mL intramuscular oil RxNorm: 8146204 1/2 Milliliter(s) IM 07/28/2018 07/28/2018 Inactive hydrocodone 5 mg-linh taminophen 325 mg tablet RxNorm: 549784 1 Tablet(s) PO Q6-8H as needed 07/21/2018 08/14/2018 Inactive testosterone cypiona te 200 mg/mL intramuscular oil RxNorm: 719399 Milliliter(s) IM 07/16/2018 07/16/2018 In active testosterone cypiona te 200 mg/mL intramuscular oil RxNorm: 049911 Milliliter(s) IM 07/02/2018 07/02/2018 In active Xanax 0.5 mg tablet RxNorm: 282510 1 Tablet(s) PO TID 06/27/2018 08/24/2018 Inactive testosterone cypiona te 200 mg/mL intramuscular oil RxNorm: 343375 Milliliter(s) IM 06/24/2018 06/24/2018 In active hydrocodone 5 mg-linh taminophen 325 mg tablet RxNorm: 389568 1 Tablet(s) PO Q6-8H as needed 06/23/2018 07/17/2018 Inactive testosterone cypiona te 200 mg/mL intramuscular oil RxNorm: 326288 Milliliter(s) IM 06/13/2018 06/13/2018 In active testosterone cypiona te 200 mg/mL intramuscular oil RxNorm: 347995 Milliliter(s) IM 06/05/2018 06/05/2018 In active testosterone cypiona te 200 mg/mL intramuscular oil RxNorm: 6305314 1/2 Milliliter(s) IM weekly 05/30/2018 09/26/2018 Inactive testosterone cypiona te 200 mg/mL intramuscular oil RxNorm: 042499 Milliliter(s) IM 05/30/2018 05/30/2018 In active testosterone cypiona te 200 mg/mL intramuscular oil RxNorm: 305205 Milliliter(s) IM 05/22/2018 05/22/2018 In active hydrocodone 5 mg-linh taminophen 325 mg tablet RxNorm: 200431 1 Tablet(s) PO Q6-8H as needed 05/20/2018 06/13/2018 Inactive testosterone cypiona te 200 mg/mL intramuscular oil RxNorm: 681200 1/2 Milliliter(s) IM 05/12/2018 05/12/2018 Inactive testosterone cypiona te 200 mg/mL intramuscular oil RxNorm: 135242 Milliliter(s) IM 05/02/2018 05/02/2018 In active testosterone cypiona te 200 mg/mL intramuscular oil RxNorm: 130296 1/2 Milliliter(s) IM weekly 04/24/2018 05/29/2018 Inactive testosterone cypiona te 200 mg/mL intramuscular oil RxNorm: 083799 0.5 Milliliter(s) IM 04/24/2018 04/24/2018 Inactive hydrocodone 5 mg-linh taminophen 325 mg tablet RxNorm: 831118 1 Tablet(s) PO Q6-8H as needed 04/22/2018 05/16/2018 Inactive testosterone cypiona te 200 mg/mL intramuscular oil RxNorm: 717914 1/2 Milliliter(s) IM 04/17/2018 04/17/2018 Inactive testosterone cypiona te 200 mg/mL intramuscular oil RxNorm: 539236 1/2 Milliliter(s) IM weekly 04/16/2018 04/23/2018 Inactive Jardiance 10 mg tablet RxNorm: 5730560 1 Tablet(s) PO daily 04/04/2018 12/29/2018 Inactive testosterone cypiona te 200 mg/mL intramuscular oil RxNorm: 863374 1 Milliliter(s) IM monthly 04/04/2018 04/15/2018 Inactive Protonix 40 mg table t,delayed release RxNorm: 652941 1 Tablet(s) PO daily TAKE 1 TABLET BY MOUTH DAILY 04/04/2018 02/01/2019 Inactive - Ref: [id number] hydrocodone 5 mg-linh taminophen 325 mg tablet RxNorm: 125133 1 Tablet(s) PO Q6-8H as needed 03/19/2018 04/12/2018 Inactive Flomax 0.4 mg capsule RxNorm: 776079 1 Capsule(s) PO daily 03/10/2018 03/04/2019 Active Urecholine 25 mg tablet RxNorm: 154939 1 Tablet(s) PO BID 03/10/2018 07/07/2018 Inactive ketorolac 60 mg/2 mL intramuscular solution RxNorm: 9865759 Milliliter(s) IM 03/07/2018 03/07/2018 In active metformin 500 mg tablet RxNorm: 635517 Tablet(s) TAKE 1 TABLET BY MOUTH DAILY 02/20/2018 02/13/2019 Ac tive 1 q am and 1/2 tab q pm hydrocodone 5 mg-linh taminophen 325 mg tablet RxNorm: 713782 1 Tablet(s) PO Q6-8H as needed 02/20/2018 03/16/2018 Inactive Kenalog 40 mg/mL bartolome pension for injection RxNorm: 9611692 1.5 Milliliter(s) In j 01/30/2018 01/30/2018 In active hydrocodone 5 mg-linh taminophen 325 mg tablet RxNorm: 499628 1 Tablet(s) PO Q6-8H as needed 01/23/2018 02/16/2018 Inactive Urecholine 25 mg tablet RxNorm: 780831 1 Tablet(s) PO BID 01/22/2018 03/09/2018 Inactive Flomax 0.4 mg capsule RxNorm: 518717 1 Capsule(s) PO daily 01/22/2018 03/09/2018 Inactive Flomax 0.4 mg capsule RxNorm: 942903 1 Capsule(s) PO daily 01/22/2018 01/21/2018 Inactive Urecholine 25 mg tablet RxNorm: 439664 1 Tablet(s) PO BID 01/22/2018 01/21/2018 Inactive testosterone cypiona te 200 mg/mL intramuscular oil RxNorm: 631336 Milliliter(s) IM 01/17/2018 01/17/2018 In active testosterone cypiona te 200 mg/mL intramuscular oil RxNorm: 216223 1 Milliliter(s) IM monthly 01/17/2018 04/03/2018 Inactive doxycycline hyclate 100 mg tablet RxNorm: 033280 1 Tablet(s) PO BID 01/14/2018 01/23/2018 Inactive lisinopril 10 mg tablet RxNorm: 634603 TAKE 1 TABLET BY MOUTH TWO TIMES DAILY 01/14/2018 10/14/2018 In active - First Attempt Ref: [id number] nystatin 100,000 uni t/mL oral suspension RxNorm: 596421 4 Milliliter(s) PO QI D Swish and swallow 01/08/2018 01/07/2018 Inactive nystatin 100,000 uni t/mL oral suspension RxNorm: 789741 4 Milliliter(s) PO QI D Swish and swallow 01/08/2018 01/12/2018 Inactive Xanax 0.5 mg tablet RxNorm: 990362 1 Tablet(s) PO TID 01/08/2018 12/23/2018 Inactive simvastatin 40 mg ta blet RxNorm: 532915 TAKE 1 TABLET BY MOUT H DAILY AT BEDTIME 12/30/2017 12/24/2018 In active - First Attempt Ref: [id number] metformin 500 mg tablet RxNorm: 959729 TAKE 1 TABLET BY MOUTH DAILY 12/30/2017 02/19/2018 Inactive - First Attempt Ref: [id number] hydrocodone 5 mg-linh taminophen 325 mg tablet RxNorm: 402115 1 Tablet(s) PO Q6-8H as needed 12/25/2017 01/18/2018 Inactive Protonix 40 mg table t,delayed release RxNorm: 632034 Tablet(s) TAKE 1 TABL ET BY MOUTH DAILY 11/20/2017 04/03/2018 Inactive - Ref: [id number] Linzess 72 mcg capsule RxNorm: 9611402 1 Capsule(s) PO daily 11/19/2017 No Stop Date Active hydrocodone 5 mg-linh taminophen 325 mg tablet RxNorm: 368746 1 Tablet(s) PO Q6-8H as needed 11/19/2017 12/13/2017 Inactive hydrocodone 5 mg-linh taminophen 325 mg tablet RxNorm: 068470 1 Tablet(s) PO Q6-8H as needed 10/28/2017 11/18/2017 Inactive Xanax 0.5 mg tablet RxNorm: 877151 1 Tablet(s) PO TID 10/25/2017 12/22/2017 Inactive Xanax 0.5 mg tablet RxNorm: 823365 TAKE ONE TABLET BY MOUTH THREE TIMES A D AY 10/24/2017 12/01/2018 In active hydrocodone 5 mg-linh taminophen 325 mg tablet RxNorm: 740576 1 Tablet(s) PO Q6-8H as needed 09/30/2017 10/24/2017 Inactive Protonix 40 mg table t,delayed release RxNorm: 324347 TAKE 1 TABLET BY MOUT H DAILY 09/16/2017 11/19/2017 In active - Ref: [id number] Yovana Perkins 300 unit/mL (1.5 mL) subcutaneous insulin pen RxNorm: 9533086 35 Unit(s) SQ QHS 08/30/2017 No Stop Date Active dosage increase hydrocodone 5 mg-linh taminophen 325 mg tablet RxNorm: 383847 1 Tablet(s) PO Q6-8H as needed 08/28/2017 09/29/2017 Inactive hydrocodone 5 mg-linh taminophen 325 mg tablet RxNorm: 673699 1 Tablet(s) PO Q6-8H as needed 07/23/2017 08/24/2017 Inactive lisinopril 10 mg tablet RxNorm: 525157 1 Tablet(s) PO BID Take 1 tablet by mout h daily 07/23/2017 01/13/2018 Inactive hydrocodone 5 mg-linh taminophen 325 mg tablet RxNorm: 546167 1 Tablet(s) PO Q6-8H as needed 06/27/2017 07/22/2017 Inactive Xanax 0.5 mg tablet RxNorm: 292726 1 Tablet(s) PO TID 06/18/2017 10/25/2017 Inactive hydrocodone 5 mg-linh taminophen 325 mg tablet RxNorm: 385431 1 Tablet(s) PO Q6-8H as needed 05/27/2017 06/26/2017 Inactive Levaquin 500 mg tablet RxNorm: 420160 1 Tablet(s) PO daily 05/24/2017 05/23/2017 Inactive Levaquin 500 mg tablet RxNorm: 804013 1 Tablet(s) PO daily 05/24/2017 05/30/2017 Inactive Protonix 40 mg table t,delayed release RxNorm: 719483 Take 1 tablet by mout h daily 04/29/2017 09/15/2017 In active - Ref: [id number] hydrocodone 5 mg-linh taminophen 325 mg tablet RxNorm: 009368 1 Tablet(s) PO Q6-8H as needed 04/25/2017 05/26/2017 Inactive metformin 500 mg tablet RxNorm: 305418 Take 1 tablet by mouth daily 04/08/2017 12/29/2017 Inactive - First Attempt Ref: [id number] hydrocodone 5 mg-linh taminophen 325 mg tablet RxNorm: 669431 1 Tablet(s) PO Q6-8H as needed 03/27/2017 04/24/2017 Inactive hydrocodone 5 mg-linh taminophen 325 mg tablet RxNorm: 199565 1 Tablet(s) PO Q6-8H as needed 02/25/2017 03/26/2017 Inactive Protonix 40 mg table t,delayed release RxNorm: 139765 Tablet(s) Take 1 tabl et by mouth BID 02/25/2017 04/28/2017 Inactive Protonix 40 mg table t,delayed release RxNorm: 261878 Tablet(s) Take 1 tabl et by mouth BID 02/19/2017 02/18/2017 Inactive Protonix 40 mg table t,delayed release RxNorm: 786730 Tablet(s) Take 1 tabl et by mouth BID 02/19/2017 02/24/2017 Inactive lisinopril 10 mg tablet RxNorm: 500200 Take 1 tablet by mouth daily 01/29/2017 07/22/2017 Inactive - First Attempt Ref: [id number] hydrocodone 5 mg-linh taminophen 325 mg tablet RxNorm: 296723 1 Tablet(s) PO Q6-8H as needed 01/25/2017 02/24/2017 Inactive simvastatin 40 mg ta blet RxNorm: 161663 Tablet(s) Take 1 tabl et by mouth daily at bedtime 01/03/2017 12/28/2017 Inactive lisinopril 10 mg tablet RxNorm: 104714 Tablet(s) Take 1 tablet by mouth daily 01/03/2017 01/28/2017 In active Protonix 40 mg table t,delayed release RxNorm: 154911 Tablet(s) Take 1 tabl et by mouth daily 12/28/2016 02/18/2017 Inactive hydrocodone 5 mg-linh taminophen 325 mg tablet RxNorm: 155306 1 Tablet(s) PO Q6-8H as needed 12/26/2016 01/24/2017 Inactive Xanax 0.5 mg tablet RxNorm: 882415 1 Tablet(s) PO TID 12/12/2016 03/11/2017 Inactive simvastatin 40 mg ta blet RxNorm: 730409 Tablet(s) Take 1 tabl et by mouth daily at bedtime 11/30/2016 01/02/2017 Inactive simvastatin 40 mg ta blet RxNorm: 888634 Take 1 tablet by mout h daily at bedtime 11/29/2016 11/29/2016 In active - First Attempt Ref: [id number] Protonix 40 mg table t,delayed release RxNorm: 420016 Take 1 tablet by mout h daily 11/27/2016 12/27/2016 In active - First Attempt Ref: [id number] hydrocodone 5 mg-linh taminophen 325 mg tablet RxNorm: 909574 1 Tablet(s) PO Q6-8H as needed 11/26/2016 12/25/2016 Inactive hydrocodone 5 mg-linh taminophen 325 mg tablet RxNorm: 548575 1 Tablet(s) PO Q8 as needed 10/24/2016 11/25/2016 Inactive Xanax 0.5 mg tablet RxNorm: 573247 1 Tablet(s) PO TID 10/09/2016 12/25/2016 Inactive hydrocodone 5 mg-linh taminophen 325 mg tablet RxNorm: 471118 1 Tablet(s) PO Q8 as needed 09/27/2016 10/23/2016 Inactive lisinopril 10 mg tablet RxNorm: 994539 Take 1 tablet by mouth daily 09/25/2016 01/02/2017 Inactive - First Attempt Ref: [id number] Vitamin D2 50,000 un it capsule RxNorm: 946265 1 Capsule(s) PO QW 09/06/2016 12/01/2018 Inactive hydrocodone 5 mg-linh taminophen 325 mg tablet RxNorm: 650031 1 Tablet(s) PO Q8 as needed 08/28/2016 09/26/2016 Inactive Toujeo SoloStar 300 unit/mL (1.5 mL) subcutaneous insulin pen RxNorm: 5486886 25 Unit(s) SQ QHS 08/23/2016 08/29/2017 Inactive dosage increase hydrocodone 5 mg-linh taminophen 325 mg tablet RxNorm: 778249 1 Tablet(s) PO Q8 as needed 07/26/2016 08/27/2016 Inactive Protonix 40 mg table t,delayed release RxNorm: 520690 Take 1 tablet by mout h daily 07/24/2016 11/26/2016 In active - First Attempt Ref: [id number] hydrocodone 5 mg-linh taminophen 325 mg tablet RxNorm: 757777 1 Tablet(s) PO Q8 as needed 06/19/2016 07/21/2016 Inactive Toujeo SoloStar 300 unit/mL (1.5 mL) subcutaneous insulin pen RxNorm: 8710365 32 Unit(s) SQ QHS 05/30/2016 08/22/2016 Inactive dosage increase hydrocodone 5 mg-linh taminophen 325 mg tablet RxNorm: 704164 1 Tablet(s) PO Q8 as needed 05/22/2016 06/18/2016 Inactive hydrocodone 5 mg-linh taminophen 325 mg tablet RxNorm: 612864 1 Tablet(s) PO Q8 as needed 04/18/2016 05/17/2016 Inactive Protonix 40 mg table t,delayed release RxNorm: 327277 Take 1 tablet by mout h daily 04/05/2016 07/03/2016 In active - Ref: [id number] metformin 500 mg tablet RxNorm: 182226 Take 1 tablet by mouth daily 04/04/2016 07/02/2016 Inactive - Ref: [id number] Xanax 0.5 mg tablet RxNorm: 091368 1 Tablet(s) PO TID 03/30/2016 09/25/2016 Inactive Xanax 0.5 mg tablet RxNorm: 436486 1 Tablet(s) PO TID 03/23/2016 12/25/2016 Inactive hydrocodone 5 mg-linh taminophen 325 mg tablet RxNorm: 656263 1 Tablet(s) PO Q8 as needed 03/06/2016 04/04/2016 Inactive Cipro 500 mg tablet RxNorm: 140621 1 Tablet(s) PO BID 02/24/2016 03/04/2016 Inactive Miralax 17 gram oral powder packet RxNorm: 200983 1 packet PO every oth er day 01/27/2016 No Stop Date Active hydrocodone 5 mg-linh taminophen 325 mg tablet RxNorm: 283315 1 Tablet(s) PO Q8 as needed 01/27/2016 02/25/2016 Inactive lisinopril 10 mg tablet RxNorm: 044797 1 Tablet(s) PO daily 01/12/2016 09/24/2016 Inactive simvastatin 40 mg ta blet RxNorm: 187189 1 Tablet(s) PO QHS 01/12/2016 11/28/2016 Inactive simvastatin 40 mg ta blet RxNorm: 422978 1 Tablet(s) PO QHS 01/11/2016 01/11/2016 Inactive lisinopril 10 mg tablet RxNorm: 773985 1 Tablet(s) PO daily 01/06/2016 01/11/2016 Inactive simvastatin 40 mg ta blet RxNorm: 557710 1 Tablet(s) PO daily 12/28/2015 01/10/2016 Inactive hydrocodone 5 mg-linh taminophen 325 mg tablet RxNorm: 130866 1 Tablet(s) PO Q8 as needed 12/27/2015 01/26/2016 Inactive Xanax 0.5 mg tablet RxNorm: 235345 1 Tablet(s) PO TID 11/30/2015 03/29/2016 Inactive Toujeo SoloStar 300 unit/mL (1.5 mL) subcutaneous insulin pen RxNorm: 8049292 30 Unit(s) SQ QHS 11/25/2015 05/29/2016 Inactive dosage increase meclizine 25 mg tablet RxNorm: 031263 1 Tablet(s) PO Q6 PRN TAKE ONE TABLET BY MOUTH EVERY 6 HOURS NEEDED 11/25/2015 02/22/2016 Inactive omeprazole 20 mg cap jacquelyn,delayed release RxNorm: 806470 1 Capsule(s) PO daily 10/06/2015 01/26/2016 In active Toujeo SoloStar 300 unit/mL (1.5 mL) subcutaneous insulin pen RxNorm: 9397289 35 Unit(s) SQ QHS 08/02/2015 11/24/2015 Inactive dosage increase Vitamin D2 50,000 un it capsule RxNorm: 499089 1 Capsule(s) PO QW 08/02/2015 09/05/2016 Inactive hydrocodone 5 mg-linh taminophen 325 mg tablet RxNorm: 167651 1 Tablet(s) PO Q8 as needed 07/11/2015 12/26/2015 Inactive Xanax 0.5 mg tablet RxNorm: 928313 1 Tablet(s) PO TID 06/30/2015 06/29/2015 Inactive Xanax 0.5 mg tablet RxNorm: 251089 1 Tablet(s) PO TID 06/30/2015 12/25/2015 Inactive hydrocodone 5 mg-linh taminophen 325 mg tablet RxNorm: 547953 1 Tablet(s) PO Q8 as needed 05/06/2015 07/10/2015 Inactive Symbicort 160 mcg-4. 5 mcg/actuation HFA aerosol inhaler RxNorm: 6685460 INH 04/25/2015 No Stop Date Active Levemir FlexTouch 10 0 unit/mL (3 mL) subcutaneous insulin pen RxNorm: 695721 30 Unit(s) SQ QHS 04/25/2015 11/24/2015 Inactive prednisone 20 mg tablet RxNorm: 017515 1 Tablet(s) PO BID 04/25/2015 04/29/2015 Inactive metformin 500 mg tablet RxNorm: 152720 1 Tablet(s) PO daily 04/25/2015 04/03/2016 Inactive amoxicillin 500 mg c apsule RxNorm: 720515 1 Capsule(s) PO TID 04/14/2015 04/13/2015 Inactive amoxicillin 500 mg c apsule RxNorm: 104611 1 Capsule(s) PO TID a nd recommend probiotic tid (otc) 04/14/2015 04/20/2015 Inactive Kenalog 40 mg/mL bartolome pension for injection RxNorm: 6197645 Milliliter(s) Inj 04/12/2015 04/12/2015 In active hydrocodone 5 mg-linh taminophen 325 mg tablet RxNorm: 060622 1 Tablet(s) PO Q8 as needed 03/30/2015 05/05/2015 Inactive Lantus 100 unit/mL s ubcutaneous solution RxNorm: 657658 25 Unit(s) SQ QPM 03/24/2015 04/25/2015 In active meclizine 25 mg tablet RxNorm: 237217 Tablet(s) TAKE ONE TABLET BY MOUTH EVERY 6 HOURS NEEDED 03/08/2015 04/06/2015 Inactive meclizine 25 mg tablet RxNorm: 241913 TAKE ONE TABLET BY MOUTH EVERY 6 HOURS A S NEEDED 02/25/2015 03/03/2015 Inactive Lantus 100 unit/mL s ubcutaneous solution RxNorm: 938833 20 Unit(s) SQ QPM 02/23/2015 03/23/2015 In active Lantus 100 unit/mL s ubcutaneous solution RxNorm: 261882 25 Unit(s) SQ QPM 02/23/2015 02/22/2015 In active hydrocodone 5 mg-linh taminophen 325 mg tablet RxNorm: 612672 1 Tablet(s) PO Q8 as needed 02/17/2015 03/29/2015 Inactive Xanax 0.5 mg tablet RxNorm: 409681 1 Tablet(s) PO TID 02/03/2015 06/29/2015 Inactive Lantus 100 unit/mL s ubcutaneous solution RxNorm: 739559 20 Unit(s) SQ QPM 12/29/2014 02/22/2015 In active Phenergan 12.5 mg re ctal suppository RxNorm: 573342 1 Suppository RTL Q6 PRN 12/23/2014 No Stop Date Active nausea Kenalog 40 mg/mL bartolome pension for injection RxNorm: 9583258 Milliliter(s) Inj 12/23/2014 12/23/2014 In active prednisone 20 mg tablet RxNorm: 429485 2 Tablet(s) PO daily 12/13/2014 12/17/2014 Inactive prednisone 20 mg tablet RxNorm: 904923 2 Tablet(s) PO daily 12/13/2014 12/12/2014 Inactive meclizine 25 mg tablet RxNorm: 105926 1 Tablet(s) PO Q6 PRN 12/09/2014 02/24/2015 Inactive hydrocodone 5 mg-linh taminophen 325 mg tablet RxNorm: 778168 1 Tablet(s) PO Q8 as needed 12/09/2014 02/16/2015 Inactive Vitamin B-12 1,000 m cg/mL oral drops RxNorm: 5562305 1 Milliliter(s) PO d aily No Start Date Active Alphagan P 0.1 % eye drops RxNorm: 060976 1 Drop(s) OPH BID No Start Date Active aspirin 325 mg table t,delayed release RxNorm: 871075 1 Tablet(s) PO daily No Start Date Active Tricor 145 mg tablet RxNorm: 802991 1 Tablet(s) PO daily No Start Date Active vitamin [id number] B1 oral liquid RxNorm: 1,000 Microgram(s) PO daily No Start Date Active atenolol 50 mg tablet RxNorm: 460182 1 Tablet(s) PO daily No Start Date Active Protonix 40 mg table t,delayed release RxNorm: 934021 1 Tablet(s) PO daily No Start Date 04/04/2016 Inactive glipizide 10 mg tablet RxNorm: 550178 1 Tablet(s) PO BID No Start Date 03/22/2015 Inactive Lantus 100 unit/mL s ubcutaneous solution RxNorm: 808059 15 Unit(s) SQ QPM No Start Date 12/28/2014 Inactive lisinopril 10 mg tablet RxNorm: 937735 1 Tablet(s) PO daily No Start Date 01/05/2016 Inactive Vitamin D2 50,000 un it capsule RxNorm: 433401 1 Capsule(s) PO QW No Start Date 08/01/2015 Inactive Toujeo SoloStar 300 unit/mL (1.5 mL) subcutaneous insulin pen RxNorm: 1953860 30 Unit(s) SQ QHS No Start Date 08/01/2015 Inactive simvastatin 40 mg ta blet RxNorm: 152390 1 Tablet(s) PO daily No Start Date 12/27/2015 Inactive testosterone cypiona te 200 mg/mL intramuscular oil RxNorm: 397917 1 Milliliter(s) IM monthly No Start Date 01/16/2018 Inactive hydrocodone 5 mg-linh taminophen 325 mg tablet RxNorm: 579285 1 Tablet(s) PO Q8 as needed No Start Date 12/08/2014 Inactive metformin 500 mg tablet RxNorm: 862100 1 Tablet(s) PO daily No Start Date 04/24/2015 Inactive omeprazole 20 mg cap jacquelyn,delayed release RxNorm: 691588 1 Capsule(s) PO daily No Start Date 10/05/2015 Inactive Flomax 0.4 mg capsule RxNorm: 197468 1 Capsule(s) PO daily No Start Date 03/23/2015 Inactive Medication Administered Medication Codes Instruc tions Start Date Status testosterone cypionate 200 mg/mL intramuscular oil RxNorm: 5849206 Milliliter 01/30/2019 No longer Active testosterone cypionate 200 mg/mL intramuscular oil RxNorm: 9680945 Milliliter 01/16/2019 No longer Active testosterone cypionate 200 mg/mL intramuscular oil RxNorm: 3787605 Milliliter 01/01/2019 No longer Active testosterone cypionate 200 mg/mL intramuscular oil RxNorm: 1211570 Milliliter 12/17/2018 No longer Active testosterone cypionate 200 mg/mL intramuscular oil RxNorm: 2664144 Milliliter 12/02/2018 No longer Active testosterone cypionate 200 mg/mL intramuscular oil RxNorm: 6267381 Milliliter 11/18/2018 No longer Active testosterone cypionate 200 mg/mL intramuscular oil RxNorm: 5089675 Milliliter 11/04/2018 No longer Active testosterone cypionate 200 mg/mL intramuscular oil RxNorm: 0088812 Milliliter 10/14/2018 No longer Active testosterone cypionate 200 mg/mL intramuscular oil RxNorm: 8174813 Milliliter 10/03/2018 No longer Active testosterone cypionate 200 mg/mL intramuscular oil RxNorm: 4091383 Milliliter 09/23/2018 No longer Active testosterone cypionate 200 mg/mL intramuscular oil RxNorm: 5539802 1/2Milliliter 09/02/2018 No longer Active testosterone enanthate 200 mg/mL intramuscular oil RxNorm: 908532 [facility] 08/21/2018 No longer Active testosterone cypionate 200 mg/mL intramuscular oil RxNorm: [id number] [facility] 08/08/2018 No longer Active testosterone cypionate 200 mg/mL intramuscular oil RxNorm: 5112547 /2[facility] 07/28/2018 No longer Active testosterone cypionate 200 mg/mL intramuscular oil RxNorm: 969546 [facility] 07/16/2018 No longer Active testosterone cypionate 200 mg/mL intramuscular oil RxNorm: 818124 [facility] 07/02/2018 No longer Active testosterone cypionate 200 mg/mL intramuscular oil RxNorm: 690342 [facility] 06/24/2018 No longer Active testosterone cypionate 200 mg/mL intramuscular oil RxNorm: 798603 [facility] 06/13/2018 No longer Active testosterone cypionate 200 mg/mL intramuscular oil RxNorm: 618749 [facility] 06/05/2018 No longer Active testosterone cypionate 200 mg/mL intramuscular oil RxNorm: 776218 [facility] 05/30/2018 No longer Active testosterone cypionate 200 mg/mL intramuscular oil RxNorm: 198999 [facility] 05/22/2018 No longer Active testosterone cypionate 200 mg/mL intramuscular oil RxNorm: 626077 1/2[facility] 05/12/2018 No longer Active testosterone cypionate 200 mg/mL intramuscular oil RxNorm: 819763 [facility] 05/02/2018 No longer Active testosterone cypionate 200 mg/mL intramuscular oil RxNorm: 393790 0.5[facility] 04/24/2018 No longer Active testosterone cypionate 200 mg/mL intramuscular oil RxNorm: 425870 1/2[facility] 04/17/2018 No longer Active ketorolac 60 mg/2 mL intramuscular solution RxNorm: 8546786 [facility] 03/07/2018 No longer Active Kenalog 40 mg/mL suspension for injection RxNorm: 7349722 1.5[facility] 01/30/2018 No longer Active testosterone cypionate 200 mg/mL intramuscular oil RxNorm: 460309 [facility] 01/17/2018 No longer Active Kenalog 40 mg/mL suspension for injection RxNorm: 2743593 [facility] 04/12/2015 No longer Active Kenalog 40 mg/mL suspension for injection RxNorm: 0574645 [facility] 12/23/2014 No longer Active Immunizations Vaccine [...] 33.4 pg 12/02/2018 Cbc With Differential Ord2 [place]% 8.0 % 12/02/2018 Cbc With Differential Ord2 [...] 2.13 K/ul 12/02/2018 Cbc With Differential Ord2 [place] ABS# 0.6 K/ul 12/02/2018 Cbc With Differential Ord2 Eos ABS# 0.4 K/ul 12/02/2018 Cbc With Differential Ord2 Baso ABS# 0.0 K/ul 12/02/2018 Testosterone Gbj210 Testo 213.5 ng/dL 12/02/2018 A1C Frequency Frh157 A1CF 21990-5 Last A1C performed at [facility] [place]: 201812/02/2018 Testosterone Jlp768 Testo 669.0 ng/dL 09/08/2018 %Hba1C Eme059 % HbA1c 49442-6 7.4 % 09/08/2018 %Hba1C Jir353 Gluc Ave 166 mg/dL 09/08/2018 Lipid Ord30 CHOL 114 mg/dL 09/08/2018 Lipid Ord30 HDL 28.0 mg/dl 09/08/2018 Lipid Ord30 TRIG 154 mg/dL 09/08/2018 Lipid Ord30 LDL 55 mg/dL 09/08/2018 Lipid Ord30 C/HDL 4.1 Ratio 09/08/2018 Comp Metabolic Vsz497 NA 137 mEq/L 09/08/2018 Comp Metabolic Cil983 K 4.3 mEq/L 09/08/2018 Comp Metabolic Xna456 CL 100 mEq/L 09/08/2018 Comp Metabolic Jsn229 CO2 27.0 mEq/L 09/08/2018 Comp Metabolic Wke731 AN ION GAP 14 09/08/2018 Comp Metabolic Tqv143 GL UCOSE 85 mg/dL 09/08/2018 Comp Metabolic Rlu376 Cr eat 1.1 mg/dL 09/08/2018 Comp Metabolic Ple107 eG FR 70 ml/min/1.73m2 09/08 Comp Metabolic Xrb538 BUN 11 mg/dL 09/08/2018 Comp Metabolic Pmg061 B/ C Ratio 10.3 Ratio 09/08/2018 Comp Metabolic Xgc276 CA LCIUM 9.2 mg/dL 09/08/2018 Comp Metabolic Xbc789 AL K PHOS 65 U/L 09/08/2018 Comp Metabolic Dam467 T(SGOT) 16 U/L 09/08/2018 Comp Metabolic Sxp238 AL T(SGPT) 14 U/L 09/08/2018 Comp Metabolic Wkl779 BI LI T 0.6 mg/dL 09/08/2018 Comp Metabolic Oyi611 AL BUMIN 4.0 g/dL 09/08/2018 Comp Metabolic Gqo621 TP RO 6.6 g/dL 09/08/2018 Comp Metabolic Zss212 GL OB 2.6 g/dL 09/08/2018 Comp Metabolic Apg020 A/ G Ratio 1.6 Ratio 09/08/2018 Comp Metabolic Gib635 Os mo 272 mOsmo 09/08/2018 Vitamin D 25 Oh Fxa0481 VITAMIN D, 25 HYDROXY 37.17 ng/mL 09/08/2018 [...] 33.3 pg 09/08/2018 Cbc With Differential Ord2 [place]% 8.1 % 09/08/2018 Cbc With Differential Ord2 [...] 2.44 K/ul 09/08/2018 Cbc With Differential Ord2 [place] ABS# 0.6 K/ul 09/08/2018 Cbc With Differential Ord2 Eos ABS# 0.3 K/ul 09/08/2018 Cbc With Differential Ord2 Baso ABS# 0.0 K/ul 09/08/2018 Tsh Ord6 TSH (3rd IS) 2.72 uIU/mL 09/08/2018 Comp Metabolic Rxr955 NA 139 mEq/L 04/01/2018 Comp Metabolic Vau864 K 4.2 mEq/L 04/01/2018 Comp Metabolic Euf682 CL 102 mEq/L 04/01/2018 Comp Metabolic Bqx460 CO2 29.0 mEq/L 04/01/2018 Comp Metabolic Fuv820 AN ION GAP 12 04/01/2018 Comp Metabolic Smd618 GL UCOSE 87 mg/dL 04/01/2018 Comp Metabolic Oco223 Cr eat 1.1 mg/dL 04/01/2018 Comp Metabolic Ixj875 eG FR 70 ml/min/1.73m2 04/01 Comp Metabolic Bjq957 BUN 21 mg/dL 04/01/2018 Comp Metabolic Nqg617 B/ C Ratio 19.4 Ratio 04/01/2018 Comp Metabolic Ywb415 CA LCIUM 9.1 mg/dL 04/01/2018 Comp Metabolic Cti481 AL K PHOS 60 U/L 04/01/2018 Comp Metabolic Qvo947 T(SGOT) 15 U/L 04/01/2018 Comp Metabolic Pnh091 AL T(SGPT) 18 U/L 04/01/2018 Comp Metabolic Qur927 BI LI T 0.4 mg/dL 04/01/2018 Comp Metabolic Btk801 AL BUMIN 4.0 g/dL 04/01/2018 Comp Metabolic Ejq388 TP RO 6.5 g/dL 04/01/2018 Comp Metabolic Eoh664 GL OB 2.5 g/dL 04/01/2018 Comp Metabolic Aof531 A/ G Ratio 1.6 Ratio 04/01/2018 Comp Metabolic Bvw311 Os mo 280 mOsmo 04/01/2018 Lipid Ord30 [...] 34.3 pg 04/01/2018 Cbc With Differential Ord2 [place]% 6.0 % 04/01/2018 Cbc With Differential Ord2 [...] 3.25 K/ul 04/01/2018 Cbc With Differential Ord2 [place] ABS# 0.6 K/ul 04/01/2018 Cbc With Differential Ord2 Eos ABS# 0.4 K/ul 04/01/2018 Cbc With Differential Ord2 Baso ABS# 0.0 K/ul 04/01/2018 %Hba1C Zok003 % HbA1c 96141-4 8.0 % 04/01/2018 %Hba1C Ooh745 Gluc Ave 183 mg/dL 04/01/2018 Testosterone Rrp535 Testo 111.3 ng/dL 04/01/2018 Testosterone Nrl765 Testo 135.4 ng/dL 01/14/2018 Cbc With Differential [...] 36.0 pg 01/14/2018 Cbc With Differential Ord2 [place]% 6.8 % 01/14/2018 Cbc With Differential Ord2 [...] 2.71 K/ul 01/14/2018 Cbc With Differential Ord2 [place] ABS# 0.8 K/ul 01/14/2018 Cbc With Differential Ord2 Eos ABS# 0.2 K/ul 01/14/2018 Cbc With Differential Ord2 Baso ABS# 0.0 K/ul 01/14/2018 Comp Metabolic Qrs008 NA 134 mEq/L 11/20/2017 Comp Metabolic Fem967 K 4.4 mEq/L 11/20/2017 Comp Metabolic Fre071 CL 99 mEq/L 11/20/2017 Comp Metabolic Xkd093 CO2 29.0 mEq/L 11/20/2017 Comp Metabolic Ioi800 AN ION GAP 10 11/20/2017 Comp Metabolic Myt037 GL UCOSE 218 mg/dL 11/20/2017 Comp Metabolic Dbp700 Cr eat 1.0 mg/dL 11/20/2017 Comp Metabolic Rcj016 eG FR 78 ml/min/1.73m2 11/20 Comp Metabolic Jyn818 BUN 13 mg/dL 11/20/2017 Comp Metabolic Agf723 B/ C Ratio 13.3 Ratio 11/20/2017 Comp Metabolic Imx493 CA LCIUM 9.0 mg/dL 11/20/2017 Comp Metabolic Obr864 AL K PHOS 71 U/L 11/20/2017 Comp Metabolic Xgs898 T(SGOT) 18 U/L 11/20/2017 Comp Metabolic Hzc580 AL T(SGPT) 17 U/L 11/20/2017 Comp Metabolic Bkv063 BI LI T 0.4 mg/dL 11/20/2017 Comp Metabolic Wqx095 AL BUMIN 4.1 g/dL 11/20/2017 Comp Metabolic Txc899 TP RO 6.5 g/dL 11/20/2017 Comp Metabolic Vaw333 GL OB 2.4 g/dL 11/20/2017 Comp Metabolic Lfd599 A/ G Ratio 1.8 Ratio 11/20/2017 Comp Metabolic Eka336 Os mo 275 mOsmo 11/20/2017 Cbc With [...] 35.2 pg 11/20/2017 Cbc With Differential Ord2 [place]% 7.2 % 11/20/2017 Cbc With Differential Ord2 [...] 3.34 K/ul 11/20/2017 Cbc With Differential Ord2 [place] ABS# 0.6 K/ul 11/20/2017 Cbc With Differential Ord2 Eos ABS# 0.3 K/ul 11/20/2017 Cbc With Differential Ord2 Baso ABS# 0.0 K/ul 11/20/2017 Vitamin D 25 Oh Mpn5511 VITAMIN D, 25 HYDROXY 43.72 ng/mL 11/20/2017 %Hba1C Ltq508 % HbA1c 59896-0 7.4 % 11/20/2017 %Hba1C Wli415 Gluc Ave 166 mg/dL 11/20/2017 %Hba1C Ebt974 % HbA1c 57771-6 7.2 % 08/20/2017 %Hba1C Bxi231 Gluc Ave 160 mg/dL 08/20/2017 Lipid Ord30 [...] 34.7 pg 08/20/2017 Cbc With Differential Ord2 [place]% 7.6 % 08/20/2017 Cbc With Differential Ord2 [...] 2.42 K/ul 08/20/2017 Cbc With Differential Ord2 [place] ABS# 0.6 K/ul 08/20/2017 Cbc With Differential Ord2 Eos ABS# 0.3 K/ul 08/20/2017 Cbc With Differential Ord2 Baso ABS# 0.0 K/ul 08/20/2017 Tsh Ord6 hTSH II 2.27 uIU/mL 08/20/2017 Comp Metabolic Tot058 NA 138 mEq/L 08/20/2017 Comp Metabolic Uur515 K 4.3 mEq/L 08/20/2017 Comp Metabolic Qpg547 CL 102 mEq/L 08/20/2017 Comp Metabolic Odf097 CO2 29.0 mEq/L 08/20/2017 Comp Metabolic Wvo749 AN ION GAP 11 08/20/2017 Comp Metabolic Pbe667 GL UCOSE 89 mg/dL 08/20/2017 Comp Metabolic Ehx863 Cr eat 1.0 mg/dL 08/20/2017 Comp Metabolic Hik162 eG FR 80 ml/min/1.73m2 08/20 Comp Metabolic Yli324 BUN 13 mg/dL 08/20/2017 Comp Metabolic Wzu315 B/ C Ratio 13.5 Ratio 08/20/2017 Comp Metabolic Fqk164 CA LCIUM 9.2 mg/dL 08/20/2017 Comp Metabolic Iaw758 AL K PHOS 69 U/L 08/20/2017 Comp Metabolic Ycy134 T(SGOT) 18 U/L 08/20/2017 Comp Metabolic Aqm210 AL T(SGPT) 19 U/L 08/20/2017 Comp Metabolic Pkf596 BI LI T 0.6 mg/dL 08/20/2017 Comp Metabolic Gog399 AL BUMIN 4.0 g/dL 08/20/2017 Comp Metabolic Kyx701 TP RO 6.6 g/dL 08/20/2017 Comp Metabolic Ueb741 GL OB 2.6 g/dL 08/20/2017 Comp Metabolic Nbz177 A/ G Ratio 1.5 Ratio 08/20/2017 Comp Metabolic Iea938 Os mo 275 mOsmo 08/20/2017 Vitamin D 25 Oh Nml9841 VITAMIN D, 25 HYDROXY 30.96 ng/mL 08/20/2017 B12 Kaa230 B12 >1500.00 pg/ml 02/22/2017 Cbc With Differential [...] 35.7 pg 02/20/2017 Cbc With Differential Ord2 [place]% 6.3 % 02/20/2017 Cbc With Differential Ord2 [...] 3.19 K/ul 02/20/2017 Cbc With Differential Ord2 [place] ABS# 0.5 K/ul 02/20/2017 Cbc With Differential Ord2 Eos ABS# 0.4 K/ul 02/20/2017 Cbc With Differential Ord2 Baso ABS# 0.0 K/ul 02/20/2017 Comp Metabolic Xht463 NA 138 mEq/L 02/20/2017 Comp Metabolic Sre360 K 4.5 mEq/L 02/20/2017 Comp Metabolic Mez510 CL 101 mEq/L 02/20/2017 Comp Metabolic Fwr485 CO2 31.0 mEq/L 02/20/2017 Comp Metabolic Euo983 AN ION GAP 11 02/20/2017 Comp Metabolic Kyv853 GL UCOSE 120 mg/dL 02/20/2017 Comp Metabolic Fpd498 Cr eat 0.9 mg/dL 02/20/2017 Comp Metabolic Gyf137 eG FR 83 ml/min/1.73m2 02/20 Comp Metabolic Uny627 BUN 15 mg/dL 02/20/2017 Comp Metabolic Nig122 B/ C Ratio 16.1 Ratio 02/20/2017 Comp Metabolic Wbw527 CA LCIUM 9.1 mg/dL 02/20/2017 Comp Metabolic Bhj632 AL K PHOS 67 U/L 02/20/2017 Comp Metabolic Wvr348 T(SGOT) 15 U/L 02/20/2017 Comp Metabolic Jgf186 AL T(SGPT) 16 U/L 02/20/2017 Comp Metabolic Avp220 BI LI T 0.5 mg/dL 02/20/2017 Comp Metabolic Myl808 AL BUMIN 4.0 g/dL 02/20/2017 Comp Metabolic Ldl430 TP RO 6.4 g/dL 02/20/2017 Comp Metabolic Tjj728 GL OB 2.4 g/dL 02/20/2017 Comp Metabolic Wev456 A/ G Ratio 1.7 Ratio 02/20/2017 Comp Metabolic Gdb756 Os mo 278 mOsmo 02/20/2017 Tsh Ord6 hTSH II 2.05 uIU/mL 02/20/2017 %Hba1C Ftl139 % HbA1c 30685-4 7.6 % 02/20/2017 %Hba1C Xho698 Gluc Ave 171 mg/dL 02/20/2017 Vitamin D 25 Oh Fcy7864 VITAMIN D, 25 HYDROXY 44.40 ng/mL 12/21/2016 Comp Metabolic Dvk173 NA 131 mEq/L 12/21/2016 Comp Metabolic Det671 K 4.2 mEq/L 12/21/2016 Comp Metabolic Ehh910 CL 97 mEq/L 12/21/2016 Comp Metabolic Lif043 CO2 27.0 mEq/L 12/21/2016 Comp Metabolic Dli460 AN ION GAP 11 12/21/2016 Comp Metabolic Cwe616 GL UCOSE 266 mg/dL 12/21/2016 Comp Metabolic Foi515 Cr eat 0.9 mg/dL 12/21/2016 Comp Metabolic Qas301 eG FR 88 ml/min/1.73m2 12/21 Comp Metabolic Jur219 BUN 12 mg/dL 12/21/2016 Comp Metabolic Jav377 B/ C Ratio 13.6 Ratio 12/21/2016 Comp Metabolic Vbk918 CA LCIUM 8.6 mg/dL 12/21/2016 Comp Metabolic Wpt182 AL K PHOS 69 U/L 12/21/2016 Comp Metabolic Cdt962 T(SGOT) 15 U/L 12/21/2016 Comp Metabolic Qou619 AL T(SGPT) 14 U/L 12/21/2016 Comp Metabolic Vjy651 BI LI T 0.3 mg/dL 12/21/2016 Comp Metabolic Ytk366 AL BUMIN 3.7 g/dL 12/21/2016 Comp Metabolic Tyv527 TP RO 5.9 g/dL 12/21/2016 Comp Metabolic Kkw413 GL OB 2.2 g/dL 12/21/2016 Comp Metabolic Cfw916 A/ G Ratio 1.7 Ratio 12/21/2016 Comp Metabolic Akx509 Os mo 272 mOsmo 12/21/2016 Cbc With [...] 34.6 pg 12/21/2016 Cbc With Differential Ord2 [place]% 6.9 % 12/21/2016 Cbc With Differential Ord2 [...] 2.05 K/ul 12/21/2016 Cbc With Differential Ord2 [place] ABS# 0.4 K/ul 12/21/2016 Cbc With Differential Ord2 Eos ABS# 0.2 K/ul 12/21/2016 Cbc With Differential Ord2 Baso ABS# 0.0 K/ul 12/21/2016 Comp Metabolic Eup805 NA 138 mEq/L 09/03/2016 Comp Metabolic Eil667 K 4.5 mEq/L 09/03/2016 Comp Metabolic Ewo367 CL 102 mEq/L 09/03/2016 Comp Metabolic Ezq853 CO2 30.0 mEq/L 09/03/2016 Comp Metabolic Nsp055 AN ION GAP 11 09/03/2016 Comp Metabolic Fuc731 GL UCOSE 113 mg/dL 09/03/2016 Comp Metabolic Fue008 Cr eat 1.0 mg/dL 09/03/2016 Comp Metabolic Bbe604 eG FR 81 ml/min/1.73m2 09/03 Comp Metabolic Pgd625 BUN 10 mg/dL 09/03/2016 Comp Metabolic Xwa347 B/ C Ratio 10.5 Ratio 09/03/2016 Comp Metabolic Ert369 CA LCIUM 9.1 mg/dL 09/03/2016 Comp Metabolic Nmd757 AL K PHOS 71 U/L 09/03/2016 Comp Metabolic Mqv920 T(SGOT) 18 U/L 09/03/2016 Comp Metabolic Cob279 AL T(SGPT) 17 U/L 09/03/2016 Comp Metabolic Tzt716 BI LI T 0.6 mg/dL 09/03/2016 Comp Metabolic Igz744 AL BUMIN 4.1 g/dL 09/03/2016 Comp Metabolic Ath695 TP RO 6.4 g/dL 09/03/2016 Comp Metabolic Oqi368 GL OB 2.3 g/dL 09/03/2016 Comp Metabolic Woo688 A/ G Ratio 1.8 Ratio 09/03/2016 Comp Metabolic Czr768 Os mo 276 mOsmo 09/03/2016 Vitamin D 25 Oh Juu7955 VITAMIN D, 25 HYDROXY 28.23 ng/mL 09/03/2016 [...] 34.4 pg 09/03/2016 Cbc With Differential Ord2 [place]% 8.9 % 09/03/2016 Cbc With Differential Ord2 [...] 3.34 K/ul 09/03/2016 Cbc With Differential Ord2 [place] ABS# 0.7 K/ul 09/03/2016 Cbc With Differential Ord2 Eos ABS# 0.4 K/ul 09/03/2016 Cbc With Differential Ord2 Baso ABS# 0.0 K/ul 09/03/2016 Lipid Ord30 CHOL 120 mg/dL 09/03/2016 Lipid Ord30 HDL 33.0 mg/dl 09/03/2016 Lipid Ord30 TRIG 161 mg/dL 09/03/2016 Lipid Ord30 LDL 55 mg/dL 09/03/2016 Lipid Ord30 C/HDL 3.6 Ratio 09/03/2016 %Hba1C Fqn740 % HbA1c 37405-0 7.5 % 09/03/2016 %Hba1C Wrw427 Gluc Ave 169 mg/dL 09/03/2016 Tsh Ord6 hTSH II 1.50 uIU/mL 05/23/2016 %Hba1C Tfv269 % HbA1c 40789-4 7.6 % 05/23/2016 %Hba1C Nmq832 Gluc Ave 171 mg/dL 05/23/2016 Comp Metabolic Qyl074 NA 135 mEq/L 05/23/2016 Comp Metabolic Yit830 K 4.4 mEq/L 05/23/2016 Comp Metabolic Agn177 CL 99 mEq/L 05/23/2016 Comp Metabolic Fjr110 CO2 28.0 mEq/L 05/23/2016 Comp Metabolic Qkh386 AN ION GAP 12 05/23/2016 Comp Metabolic Gqo127 GL UCOSE 257 mg/dL 05/23/2016 Comp Metabolic Wyi857 Cr eat 0.8 mg/dL 05/23/2016 Comp Metabolic Cdm182 eG FR 95 ml/min/1.73m2 05/23 Comp Metabolic Xkn256 BUN 11 mg/dL 05/23/2016 Comp Metabolic Teg018 B/ C Ratio 13.3 Ratio 05/23/2016 Comp Metabolic Ekt971 CA LCIUM 9.0 mg/dL 05/23/2016 Comp Metabolic Yex459 AL K PHOS 82 U/L 05/23/2016 Comp Metabolic Vcx787 T(SGOT) 21 U/L 05/23/2016 Comp Metabolic Rhw451 AL T(SGPT) 20 U/L 05/23/2016 Comp Metabolic Gcs760 BI LI T 0.3 mg/dL 05/23/2016 Comp Metabolic Kil082 AL BUMIN 4.0 g/dL 05/23/2016 Comp Metabolic Eee128 TP RO 6.4 g/dL 05/23/2016 Comp Metabolic Vte068 GL OB 2.4 g/dL 05/23/2016 Comp Metabolic Hgl332 A/ G Ratio 1.6 Ratio 05/23/2016 Comp Metabolic Ukw068 Os mo 278 mOsmo 05/23/2016 Cbc With [...] 34.5 pg 05/23/2016 Cbc With Differential Ord2 [place]% 6.1 % 05/23/2016 Cbc With Differential Ord2 [...] 2.38 K/ul 05/23/2016 Cbc With Differential Ord2 [place] ABS# 0.4 K/ul 05/23/2016 Cbc With Differential Ord2 Eos ABS# 0.2 K/ul 05/23/2016 Cbc With Differential Ord2 Baso ABS# 0.0 K/ul 05/23/2016 B12 Epu472 B12 597.00 pg/ml 05/23/2016 Metabolic Ord15 NA [...] 0.92 uIU/mL 07/29/2015 Vitamin D 25 Oh Pcd3270 VITAMIN D, 25 HYDROXY 26.93 ng/mL 07/29/2015 %Hba1C Kfp991 % HbA1c 09824-4 8.8 % 07/29/2015 %Hba1C Aut493 Gluc Ave 206 mg/dL 07/29/2015 Cbc With [...] Ord2 RDW 14.9 % 07/29/2015 Comp Metabolic Opw846 NA 138 mEq/L 07/29/2015 Comp Metabolic Zpo815 K 4.4 mEq/L 07/29/2015 Comp Metabolic Hqu818 CL 102 mEq/L 07/29/2015 Comp Metabolic Iex434 CO2 28.0 mEq/L 07/29/2015 Comp Metabolic Ywo224 AN ION GAP 12 07/29/2015 Comp Metabolic Pln566 GL UCOSE 261 mg/dL 07/29/2015 Comp Metabolic Ofn958 Cr eat 1.0 mg/dL 07/29/2015 Comp Metabolic Res296 eG FR 77 ml/min/1.73m2 07/29 Comp Metabolic Pij058 BUN 13 mg/dL 07/29/2015 Comp Metabolic Nbf753 B/ C Ratio 13.0 Ratio 07/29/2015 Comp Metabolic Rhe054 CA LCIUM 9.1 mg/dL 07/29/2015 Comp Metabolic Cfm222 AL K PHOS 64 U/L 07/29/2015 Comp Metabolic Uox746 T(SGOT) 20 U/L 07/29/2015 Comp Metabolic Lpi093 AL T(SGPT) 22 U/L 07/29/2015 Comp Metabolic Lzg448 BI LI T 0.4 mg/dL 07/29/2015 Comp Metabolic Vmb271 AL BUMIN 4.0 g/dL 07/29/2015 Comp Metabolic Rbt190 TP RO 6.1 g/dL 07/29/2015 Comp Metabolic Sco195 GL OB 2.1 g/dL 07/29/2015 Comp Metabolic Nkv816 A/ G Ratio 1.9 Ratio 07/29/2015 Comp Metabolic Kgs827 Os mo 285 mOsmo 07/29/2015 Cbc With [...] Ord2 RDW 13.1 % 05/06/2015 Comp Metabolic Txm077 NA 134 mEq/L 05/06/2015 Comp Metabolic Gmf324 K 4.4 mEq/L 05/06/2015 Comp Metabolic Ffs042 CL 98 mEq/L 05/06/2015 Comp Metabolic Azu221 CO2 29.0 mEq/L 05/06/2015 Comp Metabolic Lzj603 AN ION GAP 11 05/06/2015 Comp Metabolic Khl827 GL UCOSE 321 mg/dL 05/06/2015 Comp Metabolic Biw454 Cr eat 1.0 mg/dL 05/06/2015 Comp Metabolic Upp202 eG FR 78 ml/min/1.73m2 05/06 Comp Metabolic Jjc225 BUN 20 mg/dL 05/06/2015 Comp Metabolic Awr934 B/ C Ratio 20.4 Ratio 05/06/2015 Comp Metabolic Bti508 CA LCIUM 9.5 mg/dL 05/06/2015 Comp Metabolic Mim303 AL K PHOS 62 U/L 05/06/2015 Comp Metabolic Smm284 T(SGOT) 21 U/L 05/06/2015 Comp Metabolic Orm843 AL T(SGPT) 37 U/L 05/06/2015 Comp Metabolic Zcb111 BI LI T 0.4 mg/dL 05/06/2015 Comp Metabolic Kbt622 AL BUMIN 3.8 g/dL 05/06/2015 Comp Metabolic Gke983 TP RO 6.1 g/dL 05/06/2015 Comp Metabolic Hlg077 GL OB 2.3 g/dL 05/06/2015 Comp Metabolic Zfb720 A/ G Ratio 1.7 Ratio 05/06/2015 Comp Metabolic Zjt547 Os mo 283 mOsmo 05/06/2015 Tsh Ord6 hTSH II 1.65 uIU/mL 02/18/2015 B12 Sqn384 B12 605.00 pg/ml 02/18/2015 %Hba1C Urb398 % HbA1c 63850-5 8.3 % 02/18/2015 %Hba1C Ytc369 Gluc Ave 192 mg/dL 02/18/2015 Cbc With [...] Ord2 RDW 13.9 % 02/17/2015 Comp Metabolic Dcd011 NA 137 mEq/L 02/17/2015 Comp Metabolic Xbj430 K 4.4 mEq/L 02/17/2015 Comp Metabolic Jxk494 CL 100 mEq/L 02/17/2015 Comp Metabolic Vqr476 CO2 31.0 mEq/L 02/17/2015 Comp Metabolic Hcg832 AN ION GAP 10 02/17/2015 Comp Metabolic Ghv570 GL UCOSE 307 mg/dL 02/17/2015 Comp Metabolic Wyf131 Cr eat 1.0 mg/dL 02/17/2015 Comp Metabolic Sjc183 eG FR 74 ml/min/1.73m2 02/17 Comp Metabolic Zrz959 BUN 22 mg/dL 02/17/2015 Comp Metabolic Syj299 B/ C Ratio 21.4 Ratio 02/17/2015 Comp Metabolic Crl703 CA LCIUM 9.5 mg/dL 02/17/2015 Comp Metabolic Zzr223 AL K PHOS 78 U/L 02/17/2015 Comp Metabolic Ejs703 T(SGOT) 18 U/L 02/17/2015 Comp Metabolic Jbf734 AL T(SGPT) 32 U/L 02/17/2015 Comp Metabolic Tkp649 BI LI T 0.5 mg/dL 02/17/2015 Comp Metabolic Ien452 AL BUMIN 4.3 g/dL 02/17/2015 Comp Metabolic Rms288 TP RO 6.7 g/dL 02/17/2015 Comp Metabolic Lth076 GL OB 2.4 g/dL 02/17/2015 Comp Metabolic Qbr371 A/ G Ratio 1.8 Ratio 02/17/2015 Comp Metabolic Sbx446 Os mo 289 mOsmo 02/17/2015 Review of [...] inspection of skin Location: face 03/07/2015 on yarsanism, cheeks,actinic keratosis with irritation on left cheek - left yarsanism - croptherapy on these two lesions - [...] Procedure Codes Date THER/PROPH/DIAG INJ SC/IM CPT-4: 98299 01/30/2019 THER/PROPH/DIAG INJ SC/IM CPT-4: 89602 01/16/2019 THER/PROPH/DIAG INJ SC/IM CPT-4: 54727 01/01/2019 THER/PROPH/DIAG INJ SC/IM CPT-4: 81925 12/17/2018 THER/PROPH/DIAG INJ SC/IM CPT-4: 72991 12/02/2018 THER/PROPH/DIAG INJ SC/IM CPT-4: 49929 11/18/2018 THER/PROPH/DIAG INJ SC/IM CPT-4: 16557 11/04/2018 THER/PROPH/DIAG INJ SC/IM CPT-4: 58107 10/14/2018 THER/PROPH/DIAG INJ SC/IM CPT-4: 98541 10/03/2018 THER/PROPH/DIAG INJ SC/IM CPT-4: 53607 09/23/2018 THER/PROPH/DIAG INJ SC/IM CPT-4: 26599 09/02/2018 THER/PROPH/DIAG INJ SC/IM CPT-4: 43391 08/21/2018 THER/PROPH/DIAG INJ SC/IM CPT-4: 35788 08/08/2018 THER/PROPH/DIAG INJ SC/IM CPT-4: 71735 07/28/2018 THER/PROPH/DIAG INJ SC/IM CPT-4: 67194 07/16/2018 THER/PROPH/DIAG INJ SC/IM CPT-4: 60914 07/02/2018 PPPS, SUBSEQ VISIT CPT- 4: G0439 06/30/2018 THER/PROPH/DIAG INJ SC/IM CPT-4: 94835 06/24/2018 THER/PROPH/DIAG INJ SC/IM CPT-4: 10673 06/13/2018 ADMIN INFLUENZA VIRU S VAC CPT-4: G0008 06/06/2018 FLU VACC PRSV FREE I NC ANTIG CPT-4: 11249 06/06/2018 THER/PROPH/DIAG INJ SC/IM CPT-4: 03176 06/05/2018 THER/PROPH/DIAG INJ SC/IM CPT-4: 23873 05/30/2018 THER/PROPH/DIAG INJ SC/IM CPT-4: 65829 05/22/2018 THER/PROPH/DIAG INJ SC/IM CPT-4: 03411 05/12/2018 THER/PROPH/DIAG INJ SC/IM CPT-4: 06573 05/02/2018 THER/PROPH/DIAG INJ SC/IM CPT-4: 79555 04/24/2018 THER/PROPH/DIAG INJ SC/IM CPT-4: 86074 04/17/2018 KETOROLAC TROMETHAMI NE INJ CPT-4: J1885 03/07/2018 URINALYSIS NONAUTO W /O SCOPE CPT-4: 10572 03/07/2018 THER/PROPH/DIAG INJ SC/IM CPT-4: 03532 02/20/2018 TRIAMCINOLONE ACET I [place] NOS CPT-4: J3301 01/30/2018 THER/PROPH/DIAG INJ SC/IM CPT-4: 02087 01/17/2018 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 3-[address]: [id number] CPT-4: G0436 04/25/2017 ADMIN INFLUENZA VIRU S VAC CPT-4: G0008 04/25/2017 ADMIN PNEUMOCOCCAL V ACCINE SNOMED CT: 95092107 CPT-4: G0009 04/25/2017 PNEUMOCOCCAL VACC [address]: 96385447 CPT-4: 97273 04/25/2017 FLU VACC PRSV FREE I NC ANTIG CPT-4: 17039 04/25/2017 ADMIN INFLUENZA VIRU S VAC CPT-4: G0008 05/22/2016 FLU VACC 4 TELLY 3 YRS PLUS IM Formatting Model/CDA Sections, Assigned to/Angela Clemons SNOMED CT: [id number] CPT-4: 99514Bwwhcwn 05/22/2016 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 3-[address]: [id number] CPT-4: G0436 11/25/2015 URINALYSIS NONAUTO W /O SCOPE CPT-4: 95881 05/09/2015 TRIAMCINOLONE ACET I [place] NOS CPT-4: J3301 04/12/2015 DESTRUCT PREMALG LESION CPT-4: 10792 03/07/2015 DESTRUCT PREMALG LES 2-14 CPT-4: 16948 03/07/2015 REMOVE IMPACTED EAR WAX UNI CPT-4: 00874 12/31/2014 THER/PROPH/DIAG INJ SC/IM CPT-4: 80545 12/23/2014 TRIAMCINOLONE ACET I [place] NOS CPT-4: J3301 12/23/2014 Vital Signs Date Vital 12/02/2018 Blood Pressure 1: 140/70 Code: 8480-6 BMI: 21.9 Code: 22440-6 Heart Rate 1: 61 bpm Height: 5'11" SpO2: 94% Weight: 157 lbs 10/17/2018 Blood Pressure 1: 124/54 Code: 8480-6 BMI: 21.9 Code: 33104-6 Heart Rate 1: 64 bpm Height: 5'11" SpO2: 93% Weight: 157 lbs 09/02/2018 Blood Pressure 1: 140/80 Code: 8480-6 BMI: 21.2 Code: 00046-1 Heart Rate 1: 68 bpm Height: 5'11" SpO2: 97% Weight: 152 lbs 06/30/2018 BMI: 21.8 Code: 44729-5 Height: 5'11" Weight: 156 lbs 06/06/2018 Blood Pressure 1: 128/76 Code: 8480-6 BMI: 22.0 Code: 90746-2 Heart Rate 1: 81 bpm Height: 5'11" SpO2: 92% Weight: 158 lbs 04/04/2018 Blood Pressure 1: 124/70 Code: 8480-6 BMI: 20.8 Code: 43975-8 Heart Rate 1: 65 bpm Height: 5'11" SpO2: 95% Weight: 149 lbs 03/07/2018 Blood Pressure 1: 148/70 Code: 8480-6 BMI: 21.2 Code: 60913-3 Heart Rate 1: 66 bpm Height: 5'11" SpO2: 94% Weight: 152 lbs 02/20/2018 Blood Pressure 1: 134/58 Code: 8480-6 BMI: 20.5 Code: 70110-4 Heart Rate 1: 61 bpm Height: 5'11" SpO2: 92% Weight: 147 lbs 01/30/2018 Blood Pressure 1: 158/68 Code: 8480-6 BMI: 21.5 Code: 62420-7 Heart Rate 1: 71 bpm Height: 5'11" SpO2: 92% Weight: 154 lbs 01/14/2018 Blood Pressure 1: 156/70 Code: 8480-6 Height: Weight: 01/13/2018 Blood Pressure 1: 148/62 Code: 8480-6 BMI: 20.9 Code: 45925-6 Heart Rate 1: 54 bpm Height: 5'11" SpO2: 97% Weight: 150 lbs 11/19/2017 Blood Pressure 1: 150/60 Code: 8480-6 BMI: 21.8 Code: 15074-3 Heart Rate 1: 63 bpm Height: 5'11" SpO2: 98% Weight: 156 lbs 10/02/2017 Blood Pressure 1: 168/60 Code: 8480-6 BMI: 21.9 Code: 67503-0 Heart Rate 1: 52 bpm Height: 5'11" SpO2: 97% Weight: 157 lbs 07/23/2017 Blood Pressure 1: 170/70 Code: 8480-6 BMI: 21.8 Code: 20882-8 Heart Rate 1: 65 bpm Height: 5'11" SpO2: 98% Weight: 156 lbs 04/25/2017 Blood Pressure 1: 138/60 Code: 8480-6 BMI: 21.6 Code: 78608-2 Heart Rate 1: 55 bpm Height: 5'11" SpO2: 93% Weight: 155 lbs 02/19/2017 Blood Pressure 1: 138/64 Code: 8480-6 BMI: 21.3 Code: 74086-8 Heart Rate 1: 52 bpm Height: 5'11" SpO2: 96% Weight: 152 lbs 8 oz 01/21/2017 Blood Pressure 1: 160/68 Code: 8480-6 BMI: 21.3 Code: 66149-2 Heart Rate 1: 62 bpm Height: 5'11" SpO2: 96% Weight: 153 lbs 12/20/2016 Blood Pressure 1: 124/66 Code: 8480-6 BMI: 21.5 Code: 30544-1 Height: 5'11" Weight: 154 lbs 08/23/2016 Blood Pressure 1: 142/52 Code: 8480-6 BMI: 21.2 Code: 76723-2 Heart Rate 1: 54 bpm Height: 5'11" SpO2: 96% Weight: 152 lbs 05/22/2016 Blood Pressure 1: 130/76 Code: 8480-6 BMI: 21.5 Code: 65868-1 Heart Rate 1: 78 bpm Height: 5'11" SpO2: 92% Weight: 154 lbs 02/24/2016 Blood Pressure 1: 128/80 Code: 8480-6 BMI: 21.2 Code: 52590-3 Heart Rate 1: 74 bpm Height: 5'11" SpO2: 96% Weight: 152 lbs 01/27/2016 Blood Pressure 1: 144/60 Code: 8480-6 BMI: 21.2 Code: 08893-6 Heart Rate 1: 74 bpm Height: 5'11" SpO2: 97% Weight: 152 lbs 11/25/2015 Blood Pressure 1: 110/52 Code: 8480-6 BMI: 21.9 Code: 45836-7 Heart Rate 1: 65 bpm Height: 5'11" SpO2: 92% Weight: 157 lbs 07/28/2015 Blood Pressure 1: 138/62 Code: 8480-6 BMI: 21.8 Code: 41491-6 Heart Rate 1: 63 bpm Height: 5'11" SpO2: 91% Weight: 156 lbs 05/26/2015 Blood Pressure 1: 120/58 Code: 8480-6 BMI: 21.5 Code: 13845-3 Heart Rate 1: 99 bpm Height: 5'11" SpO2: 96% Weight: 154 lbs 05/06/2015 Blood Pressure 1: 120/58 Code: 8480-6 BMI: 21.2 Code: 16002-7 Heart Rate 1: 66 bpm Height: 5'11" SpO2: 96% Weight: 152 lbs 04/25/2015 Blood Pressure 1: 136/62 Code: 8480-6 BMI: 21.2 Code: 93191-0 Heart Rate 1: 63 bpm Height: 5'11" SpO2: 97% Weight: 152 lbs 04/12/2015 Blood Pressure 1: 160/58 Code: 8480-6 BMI: 21.6 Code: 45981-4 Heart Rate 1: 62 bpm Height: 5'11" Weight: 155 lbs 03/24/2015 Blood Pressure 1: 138/68 Code: 8480-6 BMI: 22.0 Code: 61055-2 Heart Rate 1: 65 bpm Height: 5'11" SpO2: 96% Weight: 158 lbs 03/07/2015 Blood Pressure 1: 116/52 Code: 8480-6 BMI: 22.2 Code: 10016-9 Heart Rate 1: 64 bpm Height: 5'11" SpO2: 97% Weight: 159 lbs 02/17/2015 Blood Pressure 1: 148/58 Code: 8480-6 BMI: 21.3 Code: 31032-5 Heart Rate 1: 63 bpm Height: 5'11" SpO2: 97% Weight: 153 lbs 12/31/2014 Blood Pressure 1: 100/60 Code: 8480-6 BMI: 21.8 Code: 98287-0 Heart Rate 1: 68 bpm Height: 5'11" Weight: 156 lbs 12/23/2014 Blood Pressure 1: 148/64 Code: 8480-6 BMI: 21.9 Code: 20540-7 Heart Rate 1: 64 bpm Height: 5'11" [...] fever 01/14/2018 None cough Location in the joreg 01/13/2018 None cough Quality constant 01/13/2018 None [...] Encounters Encounter Performer Loca tion Codes Date ([id number]) 36065 EST. 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 [facility] Diagnosis: Orthostatic hypotension[ICD10: I95.1] Diagnosis: Low back pain[ICD10: M54.5] Diagnosis: Unsteadiness on feet[ICD10: R26.81] Karmen Ash MD, [facility] CPT-4: 93186 10/17/2018 [id number] [id number] EST. 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 P ATIENT, LEVEL IV Diagnosis: Cellulitis of face[ICD10: L03.211] Diagnosis: Type 2 diabetes mellitus without complications[ICD10: E11.9] Diagnosis: Essential (primary) hypertension[ICD10: I10] Diagnosis: Encounter for immunization[ICD10: Z23] Karmen Ash MD, [facility] CPT-4: 01023 06/06/2018 ([id number]) 42836 EST. 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 P ATIENT, LEVEL III Diagnosis: Low back pain[ICD10: M54.5] Diagnosis: Dysuria[ICD10: R30.0] Karmen Ash MD, [facility] CPT-4: 51400 03/07/2018 ([id number]) 74393 EST. 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 P ATIENT, LEVEL III Diagnosis: Chronic obstructive pulmonary disease with (acute) exacerbation[ICD10: J44.1] Karmen Ash MD, [facility] CPT-4: 68346 01/30/2018 [id number] EST. PATIENT, LEVEL II Diagnosis: Insect bite (nonvenomous), left lower leg, initial encounter[ICD10: S80.862A] Karmen Ash MD, [facility] CPT-4: 12022 01/14/2018 ([id number]) 14096 EST. P ATIENT, LEVEL IV Diagnosis: Type 2 diabetes mellitus with hyperglycemia[ICD10: E11.65] Diagnosis: Chronic obstructive pulmonary disease, unspecified[ICD10: J44.9] Diagnosis: Other fatigue[ICD10: R53.83] Karmen Ash MD, [facility] CPT- 4: 78349 01/13/2018 ([id number]) 60081 EST. P ATIENT, LEVEL IV Diagnosis: Type 2 diabetes mellitus with hyperglycemia[ICD10: E11.65] Diagnosis: Vitamin D deficiency, unspecified[ICD10: E55.9] Diagnosis: Essential (primary) hypertension[ICD10: I10] Diagnosis: Abdominal distension (gaseous)[ICD10: R14.0] Diagnosis: Drug induced constipation[ICD10: K59.03] Karmen Ash MD, [facility] CPT-4: 94535 11/19/2017 99317 EST. PATIENT, LEVEL IV Diagnosis: Low back pain[ICD10: M54.5] Diagnosis: Chronic obstructive pulmonary disease, unspecified[ICD10: J44.9] Brunilda Ash MD, [facility] CPT-4: 34526 10/02/2017 ([id number]) 44406 EST. P ATIENT, LEVEL IV Diagnosis: Essential (primary) hypertension[ICD10: I10] Diagnosis: Type 2 diabetes mellitus with hyperglycemia[ICD10: E11.65] Diagnosis: Vitamin D deficiency, unspecified[ICD10: E55.9] Diagnosis: Mixed hyperlipidemia[ICD10: E78.2] Karmen Ash MD, [facility] CPT-4: 02610 07/23/2017 ([id number]) 55395 EST. P ATIENT, LEVEL IV Diagnosis: Essential (primary) hypertension[ICD10: I10] Diagnosis: Type 2 diabetes mellitus with hyperglycemia[ICD10: E11.65] Diagnosis: Chronic obstructive pulmonary disease, unspecified[ICD10: J44.9] Diagnosis: Nicotine dependence, unspecified, uncomplicated[ICD10: F17.200] Diagnosis: Encounter for immunization[ICD10: Z23] Karmen Ash MD, [facility] CPT-4: 05445 04/25/2017 ([id number]) 82266 EST. P ATIENT, LEVEL IV Diagnosis: Type 2 diabetes mellitus with hyperglycemia[ICD10: E11.65] Diagnosis: Essential (primary) hypertension[ICD10: I10] Diagnosis: Anemia, unspecified[ICD10: D64.9] Karmen Ash MD, [facility] CPT- 4: 85224 02/19/2017 ([id number]) 32104 EST. P ATIENT, LEVEL IV Diagnosis: Slow transit constipation[ICD10: K59.01] Diagnosis: Gastro-esophageal reflux disease without esophagitis[ICD10: K21.9] Diagnosis: Essential (primary) hypertension[ICD10: I10] Karmen Ash MD, [facility] CPT-4: 16390 01/21/2017 ([id number]) 99287 EST. P ATIENT, LEVEL IV Diagnosis: Type 2 diabetes mellitus with hyperglycemia[ICD10: E11.65] Diagnosis: Vitamin D deficiency, unspecified[ICD10: E55.9] Diagnosis: Essential (primary) hypertension[ICD10: I10] Diagnosis: Chronic obstructive pulmonary disease, unspecified[ICD10: J44.9] Karmen Ash MD, [facility] CPT-4: 38494 12/20/2016 ([id number]) 98127 EST. P ATIENT, LEVEL IV Diagnosis: Type 2 diabetes mellitus with hyperglycemia[ICD10: E11.65] Diagnosis: Essential (primary) hypertension[ICD10: I10] Diagnosis: Mixed hyperlipidemia[ICD10: E78.2] Diagnosis: Vitamin D deficiency, unspecified[ICD10: E55.9] Karmen Ash MD, [facility] CPT-4: 92108 08/23/2016 ([id number]) 54474 EST. P ATIENT, LEVEL IV Diagnosis: Type 2 diabetes mellitus with hyperglycemia[ICD10: E11.65] Diagnosis: Essential (primary) hypertension[ICD10: I10] Diagnosis: Chronic obstructive pulmonary disease, unspecified[ICD10: J44.9] Karmen Ash MD, [facility] CPT-4: 70902 05/22/2016 ([id number]) 11858 EST. P ATIENT, LEVEL III Diagnosis: Dysuria[ICD10: R30.0] Diagnosis: Essential (primary) hypertension[ICD10: I10] Karmen Ash MD, [facility] CPT-4: 57535 02/24/2016 ([id number]) 29575 EST. P ATIENT, LEVEL IV Diagnosis: Gastro-esophageal reflux disease without esophagitis[ICD10: K21.9] Diagnosis: Slow transit constipation[ICD10: K59.01] Diagnosis: Type 2 diabetes mellitus with hyperglycemia[ICD10: E11.65] Karmen Ash MD, [facility] CPT-4: 81279 01/27/2016 ([id number]) 90203 EST. P ATIENT, LEVEL IV Diagnosis: Essential (primary) hypertension[ICD10: I10] Diagnosis: Type 2 diabetes mellitus with hyperglycemia[ICD10: E11.65] Diagnosis: Vitamin D deficiency, unspecified[ICD10: E55.9] Diagnosis: Chronic obstructive pulmonary disease, unspecified[ICD10: J44.9] Diagnosis: Mixed hyperlipidemia[ICD10: E78.2] Diagnosis: Tobacco use[ICD10: Z72.0] Karmen Ash MD, [facility] CPT- 4: 64710 11/25/2015 ([id number]) 91731 EST. P ATIENT, LEVEL IV Diagnosis: Type 2 diabetes mellitus with hyperglycemia[ICD10: E11.65] Diagnosis: Essential (primary) hypertension[ICD10: I10] Diagnosis: Vitamin D deficiency, unspecified[ICD10: E55.9] Karmen Ash MD, [facility] CPT-4: 26346 07/28/2015 ([id number]) 65364 EST. P ATIENT, LEVEL III Diagnosis: Type 2 diabetes mellitus with hyperglycemia[ICD10: E11.65] Diagnosis: Essential (primary) hypertension[ICD10: I10] Violeta Ash MD, [facility] CPT-4: 13389 05/26/2015 ([id number]) 73226 EST. P ATIENT, LEVEL III Diagnosis: DIABETES TYPE II[ICD9: 250.00] Diagnosis: COPD (chronic obstructive pulmonary disease)[ICD9: 496] Diagnosis: ESSENTIAL HYPERTENSION[ICD9: 401.9] Diagnosis: Cough[ICD9: 786.2] Violeta Ash MD, [facility] CPT-4: 32155 05/06/2015 ([id number]) 22664 EST. P ATIENT, LEVEL III Diagnosis: COPD (chronic obstructive pulmonary disease)[ICD9: 496] Diagnosis: DIABETES TYPE II[ICD9: 250.00] Diagnosis: Muscle ache[ICD9: 729.1] Karmen Ash MD, [facility] CPT- 4: 59589 04/25/2015 ([id number]) 05743 EST. P ATIENT, LEVEL III Diagnosis: ACTINIC KERATOSIS[ICD9: 702.0] Diagnosis: COPD (chronic obstructive pulmonary disease)[ICD9: 496] Diagnosis: DIABETES TYPE II[ICD9: 250.00] Diagnosis: ACUTE URI[ICD9: 465.9] Violeta Ash MD, [facility] CPT-4: 86244 04/12/2015 ([id number]) 19226 EST. P ATIENT, LEVEL III Diagnosis: DIABETES TYPE II[ICD9: 250.00] Violeta Ash MD, [facility] CPT-4: 99144 03/24/2015 ([id number]) 71182 EST. P ATIENT, LEVEL IV Diagnosis: DIABETES TYPE II[ICD9: 250.00] Diagnosis: Hypoglycemia[ICD9: 251.2] Diagnosis: Skin texture changes[ICD9: 782.8] Violeta Ash MD, [facility] CPT-4: 83120 03/07/2015 ([id number]) 84107 EST. P ATIENT, LEVEL IV Diagnosis: COPD (chronic obstructive pulmonary disease)[ICD9: 496] Diagnosis: Fatigue[ICD9: 780.79] Diagnosis: Insulin dependent diabetes mellitus[ICD9: 250.00] Diagnosis: Unsteady gait[ICD9: 781.2] Maame Ash MD, [facility] CPT-4: 69048 02/17/2015 ([id number]) 96662 EST. P ATIENT, LEVEL IV Diagnosis: BPPV (benign paroxysmal positional vertigo)[ICD9: 386.11] Diagnosis: Impacted cerumen[ICD9: 380.4] Diagnosis: ESSENTIAL HYPERTENSION[ICD9: 401.9] Diagnosis: Insulin dependent diabetes mellitus[ICD9: 250.00] Karmen Ash MD, [facility] CPT-4: 55294 12/23/2014 ([id number]) OFFICE [facility], [facility] - LEVEL 4 Diagnosis: Insulin dependent diabetes mellitus[ICD9: 250.00] Diagnosis: BPPV (benign paroxysmal positional vertigo)[ICD9: 386.11] Diagnosis: COPD (chronic obstructive pulmonary disease)[ICD9: 496] Diagnosis: Tobacco abuse[ICD9: 305.1] Diagnosis: Osteoarthritis[ICD9: 715.90] Karmen Ash MD, [facility] CPT- 4: 16343 12/09/2014 Plan of Care Planned Activity Notes [...] directed 12/02/2018 Appointment: [phone] [phone] ([facility] min) Complex 12/02/2018 Patient Education: Patient Medication Summary Completed 12/02/2018 Patient Education: Diabetes Completed 12/02/2018 Appointment: Injection 11/18/2018 Patient Education: Patient Medication Summary Completed 11/18/2018 Appointment: Injection 11/04/2018 Patient Education: Patient Medication Summary Completed 11/04/2018 Appointment: [facility] Espinal [facility]el[phone] [phone] (30 min) Complex 10/21/2018 Visit Plan: Orthostatic [...] a walker 10/17/2018 Appointment: Karmen Espinal WPtel: [phone] [phone] (30 min) Complex 10/17/2018 Patient Education: [...] to medications. 09/02/2018 Appointment: Karmen Espinal WPtel: [phone] (15 min) Moderate 09/02/2018 Patient Education: Patient [...] surrogate. 06/30/2018 Appointment: Karm[facility] Espinal WPtel: [phone] [phone] [facility] - Annual Wellness Visit 06/30/2018 Patient [...] in pain. 06/06/2018 Appointment: Karmen Espinal WPtel: [phone] (15 min) Moderate 06/06/2018 Patient Education: Patient [...] 2 months 04/04/2018 Appointment: Karmen Espinal WPtel: [phone] [phone] [place] (15 min) Moderate 04/04/2018 Patient Education: Patient Medication Summary Completed 04/04/2018 Care Plan: Cbc With Differential Pending 04/04/2018 Care Plan: Testosterone repeat in 2 months Pending 04/04/2018 Appointment: Karmen Espinal WPtel: [phone] [phone] [place] (15 min) Moderate 03/25/2018 Visit Plan: Low back pain -history of kidney stone-UA negative today -increase fluids and call if pain does not resolve or if any worse. 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 01/30/2018 Appointment: Karmen Espinal WPtel: [facility]8 [address] (15 min) Moderate 01/30/2018 Patient Education: Patient Medication Summary Completed 01/30/2018 Appointment: Karmen Espinaltel: [facility] [place] (15 min) Moderate 01/28/2018 Appointment: Injection 01/17/2018 Patient Education: Patient Medication Summary Completed 01/17/2018 Visit Plan: Cellulitis - start oral antibiotics as directed, return to clinic as previously directed, call for acute change in symptoms, worsening redness, warmth, discharge. 01/14/2018 Appointment: Karmen Espinal WPtel: [phone] (10 min) Simple 01/14/2018 Patient Education: [...] less controlled. 01/13/2018 Appointment: Karmen Espinal WPtel: [address] [place] [address] (15 min) Moderate 01/13/2018 Patient Education: Patient Medication Summary Completed 01/13/2018 Referral: Hugo Villatoro HPtel:[phone] Patient's informed. Referral info ned monroy. [...] change in blood pressure readings at home. Hbzjjedb-aeaxwn-vuhpj to see Dr Villatoro Constipation-start linzess daily 11/19/2017 Appointment: [facility] Espinal [facility]Ptel: [phone] (30 min) Complex 11/19/2017 Patient Education: Patient Medication Summary Completed 11/19/2017 Care Plan: Referral Order bloating, nausea SNOMED-CT : [id number] Pending 11/19/2017 Visit Plan: Low back pain- [...] changes. 10/02/2017 Appointment: Brunilda Maravilla WPtel: [phone] [phone] (15 min) Moderate 10/02/2017 Patient Education: Patient [...] less controlled. 07/23/2017 Appointment: Karmen Espinal WPtel: [address] [place] [phone] (30 min) [facility] 07/23/2017 Patient Education: Patient Medication Summary Completed [...] history 04/25/2017 Appointment: Karmen Espinal WPtel: [phone] [phone] (30 min) Complex 04/25/2017 Patient Education: Patient [...] readings are starting to become less controlled. Jdufbr-kcgrmea-ivanl labs 02/19/2017 Appointment: Karmen Espinal WPtel: [phone] [phone] (30 min) Complex 02/19/2017 Patient Education: Patient [...] month 01/21/2017 Appointment: Karmen Espinal WPtel: [phone] [phone] (30 min) Complex 01/21/2017 Patient Education: Patient Medication Summary Completed 01/21/2017 Patient Education: Smoking and Tobacco Addiction Completed 01/21/2017 Patient Education: Hypertension Completed 01/21/2017 Care Plan: Referral Order SNOMED-CT : [id number] Pending 01/21/2017 Visit Plan: Diabetes Mellitus - [...] acute changes. 12/20/2016 Appointment: Karmen Espinal WPtel: [phone] (30 min) Complex 12/20/2016 Patient Education: Patient Medication Summary Completed 12/20/2016 Patient Education: Smoking and Tobacco Addiction Completed 12/20/2016 Patient Education: Hypertension Completed 12/20/2016 Appointment: Karmen Espinal WPtel: [phone] [phone] (30 min) Complex 09/06/2016 Visit Plan: Diabetes [...] d level 08/23/2016 Appointment: Karmen Espinal WPtel: [phone] (30 min) Complex 08/23/2016 Patient Education: Patient [...] changes. 05/22/2016 Appointment: Karmen Espinal WPtel: [phone] [phone] (30 min) Complex 05/22/2016 Patient Education: Patient Medication Summary Completed 05/22/2016 Patient Education: Smoking and Tobacco Addiction Completed 05/22/2016 Care Plan: Cbc With Differential Ordered 05/22/2016 Care Plan: %Hba1C KIKI C : 20093-2 Ordered 05/22/2016 Care Plan: Tsh Ordered 05/22/2016 [...] update 02/24/2016 Appointment: Karmen Espinal WPtel: [phone] [phone] (30 min) Complex 02/24/2016 Patient Education: [...] regimen. 01/27/2016 Appointment: Karmen Espinal WPtel: [phone] [phone] (30 min) Complex 01/27/2016 Patient Education: Patient [...] use medication to assist cessation. 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 Ynxnjmob-vnmupulq-TDJX SIMVASTATIN X 2 WEEKS AND CALL WITH [...] Care Plan: COMPLETE CBC AUTOMATED LOINC : 98445-3 Ordered 03/24/2015 Visit Plan: Diabetes Mellitus - [...] for removal. 03/07/2015 Appointment: Violeta Ash WPtel: [facility] (15 min) Moderate 03/07/2015 Patient [...] Care Plan: COMPLETE CBC AUTOMATED LOINC : 71296-8 Ordered 12/23/2014 Visit Plan: BPPV - Benign [...] next appt 12/09/2014 Appointment: Karmen Espinal WPtel: [address] [place], [place] [phone] [place] ([place]) New Patient 12/09/2014 Patient Education: Patient Medication Summary Completed 12/09/2014 Patient Education: .Amazing charts Parox ysmal positional vertigo Completed 12/09/2014 Patient Education: Smoking and Tobacco Addiction Completed 12/09/2014 Referral: Hugo Villatoro HPtel:[phone] [facility] [place] Referral Appointment Requested Referral: Luis Donohue [...] readings are starting to become less controlled. Ykyrzw-lpfhusq-qbqlz labs . COPD -recent pneum onia-symptoms have [...] POTENTIAL SIDE EFFECTS AND WORSENING OF SYMPTOMS. Oocfchya-ecvloclk-KTRW SIMVASTATIN X 2 WEEKS AND CALL WITH UPDATE . Hypertension - wel l controlled - [...] monthly -repeat labs in 2 months . Fatigue, Unsteady Gait, Dizziness- Check labs and Head CT. Pt encouraged to use walker. and pt verbalize understanding and state that they have one. Further plan pending labs and CT results. COPD, increased shortness of breath- Chest x-ray today. Pt encouraged to stop smoking. Insulin Dependent Diabetes- Check labs today. Miralax 1 packet laron ry other day. [...] today-monitor at home-follow up in 1 month CHECK UA TORADOL INCREASE PO FLUIDS STRETCHES [...] change in blood pressure readings at home. Mvjcoklc-luggvn-wjoum to see Dr Villatoro Constipation-start linzess daily [...] patient is stable, monitor for acute changes. MELATONIN FOR SLEEP -START WITH 3MG AT [...] recommend patient try melatonin as directed . Orthostatic hypote nsion -recommend patient pump [...] readings are starting to become less controlled. decrease glipizide t o 5mg twice daily [...] keeping patient stabilized during the removal process. RESTART SIMVASTATIN START TOUJEO AT 30 UNITS [...] flu/prevnar . Hypertension - well controlled - tireney nue with current medications, continue with no [...] chest-60 pack/year history . Diabetes Mellitus - controlled - per [...]
--- OUTSIDE RECORDS SUMMARY | 2020-03-29 08:00 | XMS REPORT | CCD ---
Author Author Dick Espinal Organization [facility] Address [address] [place] [address] Phone Care Team Providers Care [facility] Systems Programmer Name Role Phone PP Unavailable CCM Unavailable Summary Purpose Interface Exchange Insurance Providers Payer name Policy type / Coverage type Covered constitution party ID Effective Begin Date Effective End Date WPS Medicare Part B Medicare Part B [id number] Unknown Unknown [employer] Medicar e Part B [id number] Unknown Unkn own Family history Father Diagnosis Age At Onset Cancer Unknown Mother Diagnosis Age At Onset Cancer Unknown Social History Social History Element Codes Description Effective Dates Marital status Unknown M arried 12/09/2014 Employment Unknown Retir ed 12/09/[address]: 00602547 Currently smokes tobacco 12/09/2014 Number of years using tobacco Unknown > 50 12/09/2014 Number of cigarettes/day Unknown 30 (Pack and a half) 12/09/[address]: 035102822 Never drinks alcohol 12/09/2014 Allergies, Adverse Reactions, [...] cypiona te 200 mg/mL intramuscular oil RxNorm: 4183904 Milliliter(s) IM 01/30/2019 01/30/2019 In active testosterone cypiona te 200 mg/mL intramuscular oil RxNorm: 1565779 1/2 Milliliter(s) IM [id number] 01/16/2019 05/15/2019 Active testosterone cypiona te 200 mg/mL intramuscular oil RxNorm: 1096765 Milliliter(s) IM 01/16/2019 01/16/2019 In active hydrocodone 5 mg-linh taminophen 325 mg tablet RxNorm: 068713 1 Tablet(s) PO Q6-8H as needed 01/14/2019 02/07/2019 Active testosterone cypiona te 200 mg/mL intramuscular oil RxNorm: 2316500 Milliliter(s) IM 01/01/2019 01/01/2019 In active Xanax 0.5 mg tablet RxNorm: 195002 1 Tablet(s) PO TID 12/18/2018 02/15/2019 Active testosterone cypiona te 200 mg/mL intramuscular oil RxNorm: 9537002 Milliliter(s) IM 12/17/2018 12/17/2018 In active hydrocodone 5 mg-linh taminophen 325 mg tablet RxNorm: 478231 1 Tablet(s) PO Q6-8H as needed 12/15/2018 01/08/2019 Inactive testosterone cypiona te 200 mg/mL intramuscular oil RxNorm: 1742651 Milliliter(s) IM 12/02/2018 12/02/2018 In active testosterone cypiona te 200 mg/mL intramuscular oil RxNorm: 5931058 Milliliter(s) IM 11/18/2018 11/18/2018 In active hydrocodone 5 mg-linh taminophen 325 mg tablet RxNorm: 707975 1 Tablet(s) PO Q6-8H as needed 11/13/2018 12/07/2018 Inactive testosterone cypiona te 200 mg/mL intramuscular oil RxNorm: 2865258 1/2 Milliliter(s) IM [id number] 11/04/2018 01/15/2019 Inactive testosterone cypiona te 200 mg/mL intramuscular oil RxNorm: 8418843 Milliliter(s) IM 11/04/2018 11/04/2018 In active nicotine 21 mg/24 hr daily transdermal patch RxNorm: 982661 1 TD daily 10/31/2018 10/30/2018 In active nicotine 21 mg/24 hr daily transdermal patch RxNorm: 048118 1 TD daily 10/31/2018 11/29/2018 In active meclizine 25 mg tablet RxNorm: 864523 1 Tablet(s) PO Q6 PRN TAKE ONE TABLET BY MOUTH EVERY 6 HOURS NEEDED 10/17/2018 01/14/2019 Inactive hydrocodone 5 mg-linh taminophen 325 mg tablet RxNorm: 836906 1 Tablet(s) PO Q6-8H as needed 10/17/2018 11/10/2018 Inactive metformin 500 mg tablet RxNorm: 021244 Tablet(s) TAKE 1 TABLET BY MOUTH DAILY 10/15/2018 10/09/2019 Ac tive lisinopril 10 mg tablet RxNorm: 977913 TAKE 1 TABLET BY MOUTH TWO TIMES DAILY 10/15/2018 10/09/2019 Ac tive - First Attempt Ref: [id number] testosterone cypiona te 200 mg/mL intramuscular oil RxNorm: 1399587 Milliliter(s) IM 10/14/2018 10/14/2018 In active Xanax 0.5 mg tablet RxNorm: 486178 1 Tablet(s) PO TID 10/03/2018 11/30/2018 Inactive testosterone cypiona te 200 mg/mL intramuscular oil RxNorm: 9786564 1/2 Milliliter(s) IM weekly 10/03/2018 11/03/2018 Inactive testosterone cypiona te 200 mg/mL intramuscular oil RxNorm: 4586632 Milliliter(s) IM 10/03/2018 10/03/2018 In active testosterone cypiona te 200 mg/mL intramuscular oil RxNorm: 4666819 Milliliter(s) IM 09/23/2018 09/23/2018 In active hydrocodone 5 mg-linh taminophen 325 mg tablet RxNorm: 023429 1 Tablet(s) PO Q6-8H as needed 09/22/2018 10/16/2018 Inactive testosterone cypiona te 200 mg/mL intramuscular oil RxNorm: 9778109 1/2 Milliliter(s) IM 09/02/2018 09/02/2018 Inactive testosterone enantha te 200 mg/mL intramuscular oil RxNorm: 346572 Milliliter(s) IM 08/21/2018 08/21/2018 In active hydrocodone 5 mg-linh taminophen 325 mg tablet RxNorm: 888549 1 Tablet(s) PO Q6-8H as needed 08/21/2018 09/14/2018 Inactive testosterone cypiona te 200 mg/mL intramuscular oil RxNorm: 4885804 Milliliter(s) IM 08/08/2018 08/08/2018 In active testosterone cypiona te 200 mg/mL intramuscular oil RxNorm: 9331614 1/2 Milliliter(s) IM 07/28/2018 07/28/2018 Inactive hydrocodone 5 mg-linh taminophen 325 mg tablet RxNorm: 637138 1 Tablet(s) PO Q6-8H as needed 07/21/2018 08/14/2018 Inactive testosterone cypiona te 200 mg/mL intramuscular oil RxNorm: 203717 Milliliter(s) IM 07/16/2018 07/16/2018 In active testosterone cypiona te 200 mg/mL intramuscular oil RxNorm: 240915 Milliliter(s) IM 07/02/2018 07/02/2018 In active Xanax 0.5 mg tablet RxNorm: 777835 1 Tablet(s) PO TID 06/27/2018 08/24/2018 Inactive testosterone cypiona te 200 mg/mL intramuscular oil RxNorm: 996983 Milliliter(s) IM 06/24/2018 06/24/2018 In active hydrocodone 5 mg-linh taminophen 325 mg tablet RxNorm: 793051 1 Tablet(s) PO Q6-8H as needed 06/23/2018 07/17/2018 Inactive testosterone cypiona te 200 mg/mL intramuscular oil RxNorm: 197709 Milliliter(s) IM 06/13/2018 06/13/2018 In active testosterone cypiona te 200 mg/mL intramuscular oil RxNorm: 916585 Milliliter(s) IM 06/05/2018 06/05/2018 In active testosterone cypiona te 200 mg/mL intramuscular oil RxNorm: 1371596 1/2 Milliliter(s) IM weekly 05/30/2018 09/26/2018 Inactive testosterone cypiona te 200 mg/mL intramuscular oil RxNorm: 759497 Milliliter(s) IM 05/30/2018 05/30/2018 In active testosterone cypiona te 200 mg/mL intramuscular oil RxNorm: 104875 Milliliter(s) IM 05/22/2018 05/22/2018 In active hydrocodone 5 mg-linh taminophen 325 mg tablet RxNorm: 833535 1 Tablet(s) PO Q6-8H as needed 05/20/2018 06/13/2018 Inactive testosterone cypiona te 200 mg/mL intramuscular oil RxNorm: 423464 1/2 Milliliter(s) IM 05/12/2018 05/12/2018 Inactive testosterone cypiona te 200 mg/mL intramuscular oil RxNorm: 251687 Milliliter(s) IM 05/02/2018 05/02/2018 In active testosterone cypiona te 200 mg/mL intramuscular oil RxNorm: 667434 1/2 Milliliter(s) IM weekly 04/24/2018 05/29/2018 Inactive testosterone cypiona te 200 mg/mL intramuscular oil RxNorm: 388672 0.5 Milliliter(s) IM 04/24/2018 04/24/2018 Inactive hydrocodone 5 mg-linh taminophen 325 mg tablet RxNorm: 471424 1 Tablet(s) PO Q6-8H as needed 04/22/2018 05/16/2018 Inactive testosterone cypiona te 200 mg/mL intramuscular oil RxNorm: 658324 1/2 Milliliter(s) IM 04/17/2018 04/17/2018 Inactive testosterone cypiona te 200 mg/mL intramuscular oil RxNorm: 478036 1/2 Milliliter(s) IM weekly 04/16/2018 04/23/2018 Inactive Jardiance 10 mg tablet RxNorm: 8272275 1 Tablet(s) PO daily 04/04/2018 12/29/2018 Inactive Protonix 40 mg table t,delayed release RxNorm: 202895 1 Tablet(s) PO daily TAKE 1 TABLET BY MOUTH DAILY 04/04/2018 03/29/2019 Active - Ref: [id number] testosterone cypiona te 200 mg/mL intramuscular oil RxNorm: 189714 1 Milliliter(s) IM monthly 04/04/2018 04/15/2018 Inactive hydrocodone 5 mg-linh taminophen 325 mg tablet RxNorm: 387992 1 Tablet(s) PO Q6-8H as needed 03/19/2018 04/12/2018 Inactive Flomax 0.4 mg capsule RxNorm: 939175 1 Capsule(s) PO daily 03/10/2018 03/04/2019 Active Urecholine 25 mg tablet RxNorm: 921355 1 Tablet(s) PO BID 03/10/2018 07/07/2018 Inactive ketorolac 60 mg/2 mL intramuscular solution RxNorm: 1642372 Milliliter(s) IM 03/07/2018 03/07/2018 In active metformin 500 mg tablet RxNorm: 674813 Tablet(s) TAKE 1 TABLET BY MOUTH DAILY 02/20/2018 02/13/2019 Ac tive 1 q am and 1/2 tab q pm hydrocodone 5 mg-linh taminophen 325 mg tablet RxNorm: 868413 1 Tablet(s) PO Q6-8H as needed 02/20/2018 03/16/2018 Inactive Kenalog 40 mg/mL bartolome pension for injection RxNorm: 0490363 1.5 Milliliter(s) In j 01/30/2018 01/30/2018 In active hydrocodone 5 mg-linh taminophen 325 mg tablet RxNorm: 550685 1 Tablet(s) PO Q6-8H as needed 01/23/2018 02/16/2018 Inactive Urecholine 25 mg tablet RxNorm: 753099 1 Tablet(s) PO BID 01/22/2018 03/09/2018 Inactive Flomax 0.4 mg capsule RxNorm: 476878 1 Capsule(s) PO daily 01/22/2018 03/09/2018 Inactive Flomax 0.4 mg capsule RxNorm: 917792 1 Capsule(s) PO daily 01/22/2018 01/21/2018 Inactive Urecholine 25 mg tablet RxNorm: 439780 1 Tablet(s) PO BID 01/22/2018 01/21/2018 Inactive testosterone cypiona te 200 mg/mL intramuscular oil RxNorm: 331711 Milliliter(s) IM 01/17/2018 01/17/2018 In active testosterone cypiona te 200 mg/mL intramuscular oil RxNorm: 656312 1 Milliliter(s) IM monthly 01/17/2018 04/03/2018 Inactive doxycycline hyclate 100 mg tablet RxNorm: 346438 1 Tablet(s) PO BID 01/14/2018 01/23/2018 Inactive lisinopril 10 mg tablet RxNorm: 523431 TAKE 1 TABLET BY MOUTH TWO TIMES DAILY 01/14/2018 10/14/2018 In active - First Attempt Ref: [id number] nystatin 100,000 uni t/mL oral suspension RxNorm: 830945 4 Milliliter(s) PO QI D Swish and swallow 01/08/2018 01/07/2018 Inactive nystatin 100,000 uni t/mL oral suspension RxNorm: 238574 4 Milliliter(s) PO QI D Swish and swallow 01/08/2018 01/12/2018 Inactive Xanax 0.5 mg tablet RxNorm: 522546 1 Tablet(s) PO TID 01/08/2018 12/23/2018 Inactive simvastatin 40 mg ta blet RxNorm: 405718 TAKE 1 TABLET BY MOUT H DAILY AT BEDTIME 12/30/2017 12/24/2018 In active - First Attempt Ref: [id number] metformin 500 mg tablet RxNorm: 643008 TAKE 1 TABLET BY MOUTH DAILY 12/30/2017 02/19/2018 Inactive - First Attempt Ref: [id number] hydrocodone 5 mg-linh taminophen 325 mg tablet RxNorm: 095684 1 Tablet(s) PO Q6-8H as needed 12/25/2017 01/18/2018 Inactive Protonix 40 mg table t,delayed release RxNorm: 104019 Tablet(s) TAKE 1 TABL ET BY MOUTH DAILY 11/20/2017 04/03/2018 Inactive - Ref: [id number] Linzess 72 mcg capsule RxNorm: 1953050 1 Capsule(s) PO daily 11/19/2017 No Stop Date Active hydrocodone 5 mg-linh taminophen 325 mg tablet RxNorm: 469400 1 Tablet(s) PO Q6-8H as needed 11/19/2017 12/13/2017 Inactive hydrocodone 5 mg-linh taminophen 325 mg tablet RxNorm: 766754 1 Tablet(s) PO Q6-8H as needed 10/28/2017 11/18/2017 Inactive Xanax 0.5 mg tablet RxNorm: 130861 1 Tablet(s) PO TID 10/25/2017 12/22/2017 Inactive Xanax 0.5 mg tablet RxNorm: 385539 TAKE ONE TABLET BY MOUTH THREE TIMES A D AY 10/24/2017 12/01/2018 In active hydrocodone 5 mg-linh taminophen 325 mg tablet RxNorm: 025125 1 Tablet(s) PO Q6-8H as needed 09/30/2017 10/24/2017 Inactive Protonix 40 mg table t,delayed release RxNorm: 851483 TAKE 1 TABLET BY MOUT H DAILY 09/16/2017 11/19/2017 In active - Ref: [id number] Touparadiseo SoloStar 300 unit/mL (1.5 mL) subcutaneous insulin pen RxNorm: 6368791 35 Unit(s) SQ QHS 08/30/2017 No Stop Date Active dosage increase hydrocodone 5 mg-linh taminophen 325 mg tablet RxNorm: 668650 1 Tablet(s) PO Q6-8H as needed 08/28/2017 09/29/2017 Inactive hydrocodone 5 mg-linh taminophen 325 mg tablet RxNorm: 973743 1 Tablet(s) PO Q6-8H as needed 07/23/2017 08/24/2017 Inactive lisinopril 10 mg tablet RxNorm: 853481 1 Tablet(s) PO BID Take 1 tablet by mout h daily 07/23/2017 01/13/2018 Inactive hydrocodone 5 mg-linh taminophen 325 mg tablet RxNorm: 365342 1 Tablet(s) PO Q6-8H as needed 06/27/2017 07/22/2017 Inactive Xanax 0.5 mg tablet RxNorm: 874016 1 Tablet(s) PO TID 06/18/2017 10/25/2017 Inactive hydrocodone 5 mg-linh taminophen 325 mg tablet RxNorm: 460637 1 Tablet(s) PO Q6-8H as needed 05/27/2017 06/26/2017 Inactive Levaquin 500 mg tablet RxNorm: 086525 1 Tablet(s) PO daily 05/24/2017 05/23/2017 Inactive Levaquin 500 mg tablet RxNorm: 025275 1 Tablet(s) PO daily 05/24/2017 05/30/2017 Inactive Protonix 40 mg table t,delayed release RxNorm: 440962 Take 1 tablet by mout h daily 04/29/2017 09/15/2017 In active - Ref: [id number] hydrocodone 5 mg-linh taminophen 325 mg tablet RxNorm: 919258 1 Tablet(s) PO Q6-8H as needed 04/25/2017 05/26/2017 Inactive metformin 500 mg tablet RxNorm: 153380 Take 1 tablet by mouth daily 04/08/2017 12/29/2017 Inactive - First Attempt Ref: [id number] hydrocodone 5 mg-linh taminophen 325 mg tablet RxNorm: 793355 1 Tablet(s) PO Q6-8H as needed 03/27/2017 04/24/2017 Inactive hydrocodone 5 mg-linh taminophen 325 mg tablet RxNorm: 489907 1 Tablet(s) PO Q6-8H as needed 02/25/2017 03/26/2017 Inactive Protonix 40 mg table t,delayed release RxNorm: 269612 Tablet(s) Take 1 tabl et by mouth BID 02/25/2017 04/28/2017 Inactive Protonix 40 mg table t,delayed release RxNorm: 210200 Tablet(s) Take 1 tabl et by mouth BID 02/19/2017 02/18/2017 Inactive Protonix 40 mg table t,delayed release RxNorm: 395394 Tablet(s) Take 1 tabl et by mouth BID 02/19/2017 02/24/2017 Inactive lisinopril 10 mg tablet RxNorm: 941909 Take 1 tablet by mouth daily 01/29/2017 07/22/2017 Inactive - First Attempt Ref: [id number] hydrocodone 5 mg-linh taminophen 325 mg tablet RxNorm: 649238 1 Tablet(s) PO Q6-8H as needed 01/25/2017 02/24/2017 Inactive simvastatin 40 mg ta blet RxNorm: 930160 Tablet(s) Take 1 tabl et by mouth daily at bedtime 01/03/2017 12/28/2017 Inactive lisinopril 10 mg tablet RxNorm: 132410 Tablet(s) Take 1 tablet by mouth daily 01/03/2017 01/28/2017 In active Protonix 40 mg table t,delayed release RxNorm: 999006 Tablet(s) Take 1 tabl et by mouth daily 12/28/2016 02/18/2017 Inactive hydrocodone 5 mg-linh taminophen 325 mg tablet RxNorm: 221428 1 Tablet(s) PO Q6-8H as needed 12/26/2016 01/24/2017 Inactive Xanax 0.5 mg tablet RxNorm: 600647 1 Tablet(s) PO TID 12/12/2016 03/11/2017 Inactive simvastatin 40 mg ta blet RxNorm: 378341 Tablet(s) Take 1 tabl et by mouth daily at bedtime 11/30/2016 01/02/2017 Inactive simvastatin 40 mg ta blet RxNorm: 806575 Take 1 tablet by mout h daily at bedtime 11/29/2016 11/29/2016 In active - First Attempt Ref: [id number] Protonix 40 mg table t,delayed release RxNorm: 420554 Take 1 tablet by mout h daily 11/27/2016 12/27/2016 In active - First Attempt Ref: [id number] hydrocodone 5 mg-linh taminophen 325 mg tablet RxNorm: 878891 1 Tablet(s) PO Q6-8H as needed 11/26/2016 12/25/2016 Inactive hydrocodone 5 mg-linh taminophen 325 mg tablet RxNorm: 362092 1 Tablet(s) PO Q8 as needed 10/24/2016 11/25/2016 Inactive Xanax 0.5 mg tablet RxNorm: 238417 1 Tablet(s) PO TID 10/09/2016 12/25/2016 Inactive hydrocodone 5 mg-linh taminophen 325 mg tablet RxNorm: 856140 1 Tablet(s) PO Q8 as needed 09/27/2016 10/23/2016 Inactive lisinopril 10 mg tablet RxNorm: 620546 Take 1 tablet by mouth daily 09/25/2016 01/02/2017 Inactive - First Attempt Ref: [id number] Vitamin D2 50,000 un it capsule RxNorm: 808626 1 Capsule(s) PO QW 09/06/2016 12/01/2018 Inactive hydrocodone 5 mg-linh taminophen 325 mg tablet RxNorm: 306532 1 Tablet(s) PO Q8 as needed 08/28/2016 09/26/2016 Inactive Toujeo SoloStar 300 unit/mL (1.5 mL) subcutaneous insulin pen RxNorm: 6561376 25 Unit(s) SQ QHS 08/23/2016 08/29/2017 Inactive dosage increase hydrocodone 5 mg-linh taminophen 325 mg tablet RxNorm: 287421 1 Tablet(s) PO Q8 as needed 07/26/2016 08/27/2016 Inactive Protonix 40 mg table t,delayed release RxNorm: 598877 Take 1 tablet by mout h daily 07/24/2016 11/26/2016 In active - First Attempt Ref: [id number] hydrocodone 5 mg-linh taminophen 325 mg tablet RxNorm: 666742 1 Tablet(s) PO Q8 as needed 06/19/2016 07/21/2016 Inactive Toujeo SoloStar 300 unit/mL (1.5 mL) subcutaneous insulin pen RxNorm: 2613712 32 Unit(s) SQ QHS 05/30/2016 08/22/2016 Inactive dosage increase hydrocodone 5 mg-linh taminophen 325 mg tablet RxNorm: 376279 1 Tablet(s) PO Q8 as needed 05/22/2016 06/18/2016 Inactive hydrocodone 5 mg-linh taminophen 325 mg tablet RxNorm: 230341 1 Tablet(s) PO Q8 as needed 04/18/2016 05/17/2016 Inactive Protonix 40 mg table t,delayed release RxNorm: 019653 Take 1 tablet by mout h daily 04/05/2016 07/03/2016 In active - Ref: [id number] metformin 500 mg tablet RxNorm: 826976 Take 1 tablet by mouth daily 04/04/2016 07/02/2016 Inactive - Ref: [id number] Xanax 0.5 mg tablet RxNorm: 460182 1 Tablet(s) PO TID 03/30/2016 09/25/2016 Inactive Xanax 0.5 mg tablet RxNorm: 132489 1 Tablet(s) PO TID 03/23/2016 12/25/2016 Inactive hydrocodone 5 mg-linh taminophen 325 mg tablet RxNorm: 697843 1 Tablet(s) PO Q8 as needed 03/06/2016 04/04/2016 Inactive Cipro 500 mg tablet RxNorm: 769497 1 Tablet(s) PO BID 02/24/2016 03/04/2016 Inactive Miralax 17 gram oral powder packet RxNorm: 583018 1 packet PO every oth er day 01/27/2016 No Stop Date Active hydrocodone 5 mg-linh taminophen 325 mg tablet RxNorm: 933193 1 Tablet(s) PO Q8 as needed 01/27/2016 02/25/2016 Inactive lisinopril 10 mg tablet RxNorm: 836461 1 Tablet(s) PO daily 01/12/2016 09/24/2016 Inactive simvastatin 40 mg ta blet RxNorm: 164942 1 Tablet(s) PO QHS 01/12/2016 11/28/2016 Inactive simvastatin 40 mg ta blet RxNorm: 757375 1 Tablet(s) PO QHS 01/11/2016 01/11/2016 Inactive lisinopril 10 mg tablet RxNorm: 397504 1 Tablet(s) PO daily 01/06/2016 01/11/2016 Inactive simvastatin 40 mg ta blet RxNorm: 905674 1 Tablet(s) PO daily 12/28/2015 01/10/2016 Inactive hydrocodone 5 mg-linh taminophen 325 mg tablet RxNorm: 003879 1 Tablet(s) PO Q8 as needed 12/27/2015 01/26/2016 Inactive Xanax 0.5 mg tablet RxNorm: 845182 1 Tablet(s) PO TID 11/30/2015 03/29/2016 Inactive Toujeo SoloStar 300 unit/mL (1.5 mL) subcutaneous insulin pen RxNorm: 3605111 30 Unit(s) SQ QHS 11/25/2015 05/29/2016 Inactive dosage increase meclizine 25 mg tablet RxNorm: 879077 1 Tablet(s) PO Q6 PRN TAKE ONE TABLET BY MOUTH EVERY 6 HOURS NEEDED 11/25/2015 02/22/2016 Inactive omeprazole 20 mg cap jacquelyn,delayed release RxNorm: 689467 1 Capsule(s) PO daily 10/06/2015 01/26/2016 In active Toujeo SoloStar 300 unit/mL (1.5 mL) subcutaneous insulin pen RxNorm: 0787884 35 Unit(s) SQ QHS 08/02/2015 11/24/2015 Inactive dosage increase Vitamin D2 50,000 un it capsule RxNorm: 535641 1 Capsule(s) PO QW 08/02/2015 09/05/2016 Inactive hydrocodone 5 mg-linh taminophen 325 mg tablet RxNorm: 043179 1 Tablet(s) PO Q8 as needed 07/11/2015 12/26/2015 Inactive Xanax 0.5 mg tablet RxNorm: 144949 1 Tablet(s) PO TID 06/30/2015 06/29/2015 Inactive Xanax 0.5 mg tablet RxNorm: 113082 1 Tablet(s) PO TID 06/30/2015 12/25/2015 Inactive hydrocodone 5 mg-linh taminophen 325 mg tablet RxNorm: 352003 1 Tablet(s) PO Q8 as needed 05/06/2015 07/10/2015 Inactive Symbicort 160 mcg-4. 5 mcg/actuation HFA aerosol inhaler RxNorm: 5885173 INH 04/25/2015 No Stop Date Active Levemir FlexTouch 10 0 unit/mL (3 mL) subcutaneous insulin pen RxNorm: 913211 30 Unit(s) SQ QHS 04/25/2015 11/24/2015 Inactive prednisone 20 mg tablet RxNorm: 832337 1 Tablet(s) PO BID 04/25/2015 04/29/2015 Inactive metformin 500 mg tablet RxNorm: 557918 1 Tablet(s) PO daily 04/25/2015 04/03/2016 Inactive amoxicillin 500 mg c apsule RxNorm: 399364 1 Capsule(s) PO TID 04/14/2015 04/13/2015 Inactive amoxicillin 500 mg c apsule RxNorm: 937360 1 Capsule(s) PO TID a nd recommend probiotic tid (otc) 04/14/2015 04/20/2015 Inactive Kenalog 40 mg/mL bartolome pension for injection RxNorm: 6170298 Milliliter(s) Inj 04/12/2015 04/12/2015 In active hydrocodone 5 mg-linh taminophen 325 mg tablet RxNorm: 031524 1 Tablet(s) PO Q8 as needed 03/30/2015 05/05/2015 Inactive Lantus 100 unit/mL s ubcutaneous solution RxNorm: 734195 25 Unit(s) SQ QPM 03/24/2015 04/25/2015 In active meclizine 25 mg tablet RxNorm: 885803 Tablet(s) TAKE ONE TABLET BY MOUTH EVERY 6 HOURS NEEDED 03/08/2015 04/06/2015 Inactive meclizine 25 mg tablet RxNorm: 747190 TAKE ONE TABLET BY MOUTH EVERY 6 HOURS A S NEEDED 02/25/2015 03/03/2015 Inactive Lantus 100 unit/mL s ubcutaneous solution RxNorm: 449275 20 Unit(s) SQ QPM 02/23/2015 03/23/2015 In active Lantus 100 unit/mL s ubcutaneous solution RxNorm: 697138 25 Unit(s) SQ QPM 02/23/2015 02/22/2015 In active hydrocodone 5 mg-linh taminophen 325 mg tablet RxNorm: 401576 1 Tablet(s) PO Q8 as needed 02/17/2015 03/29/2015 Inactive Xanax 0.5 mg tablet RxNorm: 333759 1 Tablet(s) PO TID 02/03/2015 06/29/2015 Inactive Lantus 100 unit/mL s ubcutaneous solution RxNorm: 506400 20 Unit(s) SQ QPM 12/29/2014 02/22/2015 In active Phenergan 12.5 mg re ctal suppository RxNorm: 020363 1 Suppository RTL Q6 PRN 12/23/2014 No Stop Date Active nausea Kenalog 40 mg/mL bartolome pension for injection RxNorm: 4089215 Milliliter(s) Inj 12/23/2014 12/23/2014 In active prednisone 20 mg tablet RxNorm: 899723 2 Tablet(s) PO daily 12/13/2014 12/17/2014 Inactive prednisone 20 mg tablet RxNorm: 330270 2 Tablet(s) PO daily 12/13/2014 12/12/2014 Inactive meclizine 25 mg tablet RxNorm: 067772 1 Tablet(s) PO Q6 PRN 12/09/2014 02/24/2015 Inactive hydrocodone 5 mg-linh taminophen 325 mg tablet RxNorm: 142845 1 Tablet(s) PO Q8 as needed 12/09/2014 02/16/2015 Inactive Vitamin B-12 1,000 m cg/mL oral drops RxNorm: 4979068 1 Milliliter(s) PO d aily No Start Date Active Alphagan P 0.1 % eye drops RxNorm: 382283 1 Drop(s) OPH BID No Start Date Active aspirin 325 mg table t,delayed release RxNorm: 603443 1 Tablet(s) PO daily No Start Date Active Tricor 145 mg tablet RxNorm: 869301 1 Tablet(s) PO daily No Start Date Active vitamin [id number] B1 oral liquid RxNorm: 1,000 Microgram(s) PO daily No Start Date Active atenolol 50 mg tablet RxNorm: 635886 1 Tablet(s) PO daily No Start Date Active Protonix 40 mg table t,delayed release RxNorm: 660905 1 Tablet(s) PO daily No Start Date 04/04/2016 Inactive glipizide 10 mg tablet RxNorm: 280372 1 Tablet(s) PO BID No Start Date 03/22/2015 Inactive Lantus 100 unit/mL s ubcutaneous solution RxNorm: 936517 15 Unit(s) SQ QPM No Start Date 12/28/2014 Inactive lisinopril 10 mg tablet RxNorm: 583349 1 Tablet(s) PO daily No Start Date 01/05/2016 Inactive Vitamin D2 50,000 un it capsule RxNorm: 499135 1 Capsule(s) PO QW No Start Date 08/01/2015 Inactive Toujeo SoloStar 300 unit/mL (1.5 mL) subcutaneous insulin pen RxNorm: 0107526 30 Unit(s) SQ QHS No Start Date 08/01/2015 Inactive simvastatin 40 mg ta blet RxNorm: 721955 1 Tablet(s) PO daily No Start Date 12/27/2015 Inactive testosterone cypiona te 200 mg/mL intramuscular oil RxNorm: 395331 1 Milliliter(s) IM monthly No Start Date 01/16/2018 Inactive hydrocodone 5 mg-linh taminophen 325 mg tablet RxNorm: 471446 1 Tablet(s) PO Q8 as needed No Start Date 12/08/2014 Inactive metformin 500 mg tablet RxNorm: 861530 1 Tablet(s) PO daily No Start Date 04/24/2015 Inactive omeprazole 20 mg cap jacquelyn,delayed release RxNorm: 816261 1 Capsule(s) PO daily No Start Date 10/05/2015 Inactive Flomax 0.4 mg capsule RxNorm: 435147 1 Capsule(s) PO daily No Start Date 03/23/2015 Inactive Medication Administered Medication Codes Instruc tions Start Date Status testosterone cypionate 200 mg/mL intramuscular oil RxNorm: 0858063 Milliliter 01/30/2019 Active testosterone cypionate 200 mg/mL intramuscular oil RxNorm: 3952641 Milliliter 01/16/2019 No longer Active testosterone cypionate 200 mg/mL intramuscular oil RxNorm: 0187716 Milliliter 01/01/2019 No longer Active testosterone cypionate 200 mg/mL intramuscular oil RxNorm: 5360487 Milliliter 12/17/2018 No longer Active testosterone cypionate 200 mg/mL intramuscular oil RxNorm: 1152579 Milliliter 12/02/2018 No longer Active testosterone cypionate 200 mg/mL intramuscular oil RxNorm: 7711562 Milliliter 11/18/2018 No longer Active testosterone cypionate 200 mg/mL intramuscular oil RxNorm: 5738352 Milliliter 11/04/2018 No longer Active testosterone cypionate 200 mg/mL intramuscular oil RxNorm: 5656769 Milliliter 10/14/2018 No longer Active testosterone cypionate 200 mg/mL intramuscular oil RxNorm: 0337436 Milliliter 10/03/2018 No longer Active testosterone cypionate 200 mg/mL intramuscular oil RxNorm: 4185346 Milliliter 09/23/2018 No longer Active testosterone cypionate 200 mg/mL intramuscular oil RxNorm: 5311016 1/2Milliliter 09/02/2018 No longer Active testosterone enanthate 200 mg/mL intramuscular oil RxNorm: 078737 Milliliter 08/21/2018 No longer Active testosterone cypionate 200 mg/mL intramuscular oil RxNorm: 0679062 Milliliter 08/08/2018 No longer Active testosterone cypionate 200 mg/mL intramuscular oil RxNorm: 5337986 1/2Milliliter 07/28/2018 No longer Active testosterone cypionate 200 mg/mL intramuscular oil RxNorm: 938107 [facility] 07/16/2018 No longer Active testosterone cypionate 200 mg/mL intramuscular oil RxNorm: 714664 [facility] 07/02/2018 No longer Active testosterone cypionate 200 mg/mL intramuscular oil RxNorm: 749668 [facility] 06/24/2018 No longer Active testosterone cypionate 200 mg/mL intramuscular oil RxNorm: 096538 [facility] 06/13/2018 No longer Active testosterone cypionate 200 mg/mL intramuscular oil RxNorm: 582719 [facility] 06/05/2018 No longer Active testosterone cypionate 200 mg/mL intramuscular oil RxNorm: 187415 [facility] 05/30/2018 No longer Active testosterone cypionate 200 mg/mL intramuscular oil RxNorm: 366566 [facility] 05/22/2018 No longer Active testosterone cypionate 200 mg/mL intramuscular oil RxNorm: 750431 1/2[facility] 05/12/2018 No longer Active testosterone cypionate 200 mg/mL intramuscular oil RxNorm: 481294 [facility] 05/02/2018 No longer Active testosterone cypionate 200 mg/mL intramuscular oil RxNorm: 392437 0.5[facility] 04/24/2018 No longer Active testosterone cypionate 200 mg/mL intramuscular oil RxNorm: 849433 1/2[facility] 04/17/2018 No longer Active ketorolac 60 mg/2 mL intramuscular solution RxNorm: 7313028 [facility] 03/07/2018 No longer Active Kenalog 40 mg/mL suspension for injection RxNorm: 4333827 1.5[facility]il[facility] 01/30/2018 No longer Active testosterone cypionate 200 mg/mL intramuscular oil RxNorm: 533091 [facility] 01/17/2018 No longer Active Kenalog 40 mg/mL suspension for injection RxNorm: 0166946 [facility] 04/12/2015 No longer Active Kenalog 40 mg/mL suspension for injection RxNorm: 7185976 [facility] 12/23/2014 No longer Active Immunizations Vaccine [...] 33.4 pg 12/02/2018 Cbc With Differential Ord2 Ralls% 8.0 % 12/02/2018 Cbc With Differential Ord2 [...] 2.13 K/ul 12/02/2018 Cbc With Differential Ord2 Ralls ABS# 0.6 K/ul 12/02/2018 Cbc With Differential Ord2 Eos ABS# 0.4 K/ul 12/02/2018 Cbc With Differential Ord2 Baso ABS# 0.0 K/ul 12/02/2018 Testosterone Igo190 Testo 213.5 ng/dL 12/02/2018 A1C Frequency Qtb088 A1CF 71963-8 Last A1C performed [place] [facility] [place] [facility] [place]: 201812/02/2018 Testosterone Xgk072 Testo 669.0 ng/dL 09/08/2018 %Hba1C Skg146 % HbA1c 25288-0 7.4 % 09/08/2018 %Hba1C Nmt561 Gluc Ave 166 mg/dL 09/08/2018 Lipid Ord30 CHOL 114 mg/dL 09/08/2018 Lipid Ord30 HDL 28.0 mg/dl 09/08/2018 Lipid Ord30 TRIG 154 mg/dL 09/08/2018 Lipid Ord30 LDL 55 mg/dL 09/08/2018 Lipid Ord30 C/HDL 4.1 Ratio 09/08/2018 Comp Metabolic Hso656 NA 137 mEq/L 09/08/2018 Comp Metabolic Cpq224 K 4.3 mEq/L 09/08/2018 Comp Metabolic Abe941 CL 100 mEq/L 09/08/2018 Comp Metabolic Pwi315 CO2 27.0 mEq/L 09/08/2018 Comp Metabolic Ugg138 AN ION GAP 14 09/08/2018 Comp Metabolic Hkg479 GL UCOSE 85 mg/dL 09/08/2018 Comp Metabolic Orz123 Cr eat 1.1 mg/dL 09/08/2018 Comp Metabolic Hmy002 eG FR 70 ml/min/1.73m2 09/08 Comp Metabolic Bmg397 BUN 11 mg/dL 09/08/2018 Comp Metabolic Eyd207 B/ C Ratio 10.3 Ratio 09/08/2018 Comp Metabolic Wmr593 CA LCIUM 9.2 mg/dL 09/08/2018 Comp Metabolic Ost243 AL K PHOS 65 U/L 09/08/2018 Comp Metabolic Kpd653 T(SGOT) 16 U/L 09/08/2018 Comp Metabolic Mfa411 AL T(SGPT) 14 U/L 09/08/2018 Comp Metabolic Kbf246 BI LI T 0.6 mg/dL 09/08/2018 Comp Metabolic Gyp445 AL BUMIN 4.0 g/dL 09/08/2018 Comp Metabolic Xid090 TP RO 6.6 g/dL 09/08/2018 Comp Metabolic Ikn911 GL OB 2.6 g/dL 09/08/2018 Comp Metabolic Dky788 A/ G Ratio 1.6 Ratio 09/08/2018 Comp Metabolic Fmw093 Os mo 272 mOsmo 09/08/2018 Vitamin D 25 Oh Vkx6216 VITAMIN D, 25 HYDROXY 37.17 ng/mL 09/08/2018 [...] 33.3 pg 09/08/2018 Cbc With Differential Ord2 Ralls% 8.1 % 09/08/2018 Cbc With Differential Ord2 [...] 2.44 K/ul 09/08/2018 Cbc With Differential Ord2 Ralls ABS# 0.6 K/ul 09/08/2018 Cbc With Differential Ord2 Eos ABS# 0.3 K/ul 09/08/2018 Cbc With Differential Ord2 Baso ABS# 0.0 K/ul 09/08/2018 Tsh Ord6 TSH (3rd IS) 2.72 uIU/mL 09/08/2018 Comp Metabolic Xsn490 NA 139 mEq/L 04/01/2018 Comp Metabolic Gop182 K 4.2 mEq/L 04/01/2018 Comp Metabolic Xxf641 CL 102 mEq/L 04/01/2018 Comp Metabolic Uoa673 CO2 29.0 mEq/L 04/01/2018 Comp Metabolic Rmz591 AN ION GAP 12 04/01/2018 Comp Metabolic Dbt564 GL UCOSE 87 mg/dL 04/01/2018 Comp Metabolic Agy227 Cr eat 1.1 mg/dL 04/01/2018 Comp Metabolic Dyj985 eG FR 70 ml/min/1.73m2 04/01 Comp Metabolic Ogc784 BUN 21 mg/dL 04/01/2018 Comp Metabolic Rgi218 B/ C Ratio 19.4 Ratio 04/01/2018 Comp Metabolic Vzt725 CA LCIUM 9.1 mg/dL 04/01/2018 Comp Metabolic Aon895 AL K PHOS 60 U/L 04/01/2018 Comp Metabolic Lop403 T(SGOT) 15 U/L 04/01/2018 Comp Metabolic Bvb817 AL T(SGPT) 18 U/L 04/01/2018 Comp Metabolic Cyh854 BI LI T 0.4 mg/dL 04/01/2018 Comp Metabolic Xfh144 AL BUMIN 4.0 g/dL 04/01/2018 Comp Metabolic Opn459 TP RO 6.5 g/dL 04/01/2018 Comp Metabolic Erh665 GL OB 2.5 g/dL 04/01/2018 Comp Metabolic Crz861 A/ G Ratio 1.6 Ratio 04/01/2018 Comp Metabolic Fcj072 Os mo 280 mOsmo 04/01/2018 Lipid Ord30 [...] 34.3 pg 04/01/2018 Cbc With Differential Ord2 Ralls% 6.0 % 04/01/2018 Cbc With Differential Ord2 [...] 3.25 K/ul 04/01/2018 Cbc With Differential Ord2 Ralls ABS# 0.6 K/ul 04/01/2018 Cbc With Differential Ord2 Eos ABS# 0.4 K/ul 04/01/2018 Cbc With Differential Ord2 Baso ABS# 0.0 K/ul 04/01/2018 %Hba1C Gas295 % HbA1c 62491-5 8.0 % 04/01/2018 %Hba1C Xro083 Gluc Ave 183 mg/dL 04/01/2018 Testosterone Bqk045 Testo 111.3 ng/dL 04/01/2018 Testosterone Cqf031 Testo 135.4 ng/dL 01/14/2018 Cbc With Differential [...] 36.0 pg 01/14/2018 Cbc With Differential Ord2 Ralls% 6.8 % 01/14/2018 Cbc With Differential Ord2 [...] 2.71 K/ul 01/14/2018 Cbc With Differential Ord2 Ralls ABS# 0.8 K/ul 01/14/2018 Cbc With Differential Ord2 Eos ABS# 0.2 K/ul 01/14/2018 Cbc With Differential Ord2 Baso ABS# 0.0 K/ul 01/14/2018 Comp Metabolic Dys527 NA 134 mEq/L 11/20/2017 Comp Metabolic Jhm629 K 4.4 mEq/L 11/20/2017 Comp Metabolic Ngv192 CL 99 mEq/L 11/20/2017 Comp Metabolic Iyt661 CO2 29.0 mEq/L 11/20/2017 Comp Metabolic Gws826 AN ION GAP 10 11/20/2017 Comp Metabolic Xvm701 GL UCOSE 218 mg/dL 11/20/2017 Comp Metabolic Yon145 Cr eat 1.0 mg/dL 11/20/2017 Comp Metabolic Lue388 eG FR 78 ml/min/1.73m2 11/20 Comp Metabolic Inu216 BUN 13 mg/dL 11/20/2017 Comp Metabolic Hzl085 B/ C Ratio 13.3 Ratio 11/20/2017 Comp Metabolic Shl320 CA LCIUM 9.0 mg/dL 11/20/2017 Comp Metabolic Pyf980 AL K PHOS 71 U/L 11/20/2017 Comp Metabolic Ges446 T(SGOT) 18 U/L 11/20/2017 Comp Metabolic Dlk404 AL T(SGPT) 17 U/L 11/20/2017 Comp Metabolic Gkf424 BI LI T 0.4 mg/dL 11/20/2017 Comp Metabolic Fnb494 AL BUMIN 4.1 g/dL 11/20/2017 Comp Metabolic Ymg706 TP RO 6.5 g/dL 11/20/2017 Comp Metabolic Mxj188 GL OB 2.4 g/dL 11/20/2017 Comp Metabolic Ngc840 A/ G Ratio 1.8 Ratio 11/20/2017 Comp Metabolic Zft013 Os mo 275 mOsmo 11/20/2017 Cbc With [...] 35.2 pg 11/20/2017 Cbc With Differential Ord2 Ralls% 7.2 % 11/20/2017 Cbc With Differential Ord2 [...] 3.34 K/ul 11/20/2017 Cbc With Differential Ord2 Ralls ABS# 0.6 K/ul 11/20/2017 Cbc With Differential Ord2 Eos ABS# 0.3 K/ul 11/20/2017 Cbc With Differential Ord2 Baso ABS# 0.0 K/ul 11/20/2017 Vitamin D 25 Oh Pdl0307 VITAMIN D, 25 HYDROXY 43.72 ng/mL 11/20/2017 %Hba1C Cdz176 % HbA1c 21404-7 7.4 % 11/20/2017 %Hba1C Aie760 Gluc Ave 166 mg/dL 11/20/2017 %Hba1C Fbz922 % HbA1c 67617-7 7.2 % 08/20/2017 %Hba1C Jlg951 Gluc Ave 160 mg/dL 08/20/2017 Lipid Ord30 [...] 34.7 pg 08/20/2017 Cbc With Differential Ord2 Ralls% 7.6 % 08/20/2017 Cbc With Differential Ord2 [...] 2.42 K/ul 08/20/2017 Cbc With Differential Ord2 Ralls ABS# 0.6 K/ul 08/20/2017 Cbc With Differential Ord2 Eos ABS# 0.3 K/ul 08/20/2017 Cbc With Differential Ord2 Baso ABS# 0.0 K/ul 08/20/2017 Tsh Ord6 hTSH II 2.27 uIU/mL 08/20/2017 Comp Metabolic Wpj288 NA 138 mEq/L 08/20/2017 Comp Metabolic Ocs069 K 4.3 mEq/L 08/20/2017 Comp Metabolic Zib638 CL 102 mEq/L 08/20/2017 Comp Metabolic Rqa788 CO2 29.0 mEq/L 08/20/2017 Comp Metabolic Ccg550 AN ION GAP 11 08/20/2017 Comp Metabolic Tec342 GL UCOSE 89 mg/dL 08/20/2017 Comp Metabolic Edd402 Cr eat 1.0 mg/dL 08/20/2017 Comp Metabolic Lue412 eG FR 80 ml/min/1.73m2 08/20 Comp Metabolic Uys975 BUN 13 mg/dL 08/20/2017 Comp Metabolic Uhf080 B/ C Ratio 13.5 Ratio 08/20/2017 Comp Metabolic Aew661 CA LCIUM 9.2 mg/dL 08/20/2017 Comp Metabolic Fat009 AL K PHOS 69 U/L 08/20/2017 Comp Metabolic Xtj057 T(SGOT) 18 U/L 08/20/2017 Comp Metabolic Hma575 AL T(SGPT) 19 U/L 08/20/2017 Comp Metabolic Uoz020 BI LI T 0.6 mg/dL 08/20/2017 Comp Metabolic Nuo960 AL BUMIN 4.0 g/dL 08/20/2017 Comp Metabolic Qed829 TP RO 6.6 g/dL 08/20/2017 Comp Metabolic Tcu073 GL OB 2.6 g/dL 08/20/2017 Comp Metabolic Mqx106 A/ G Ratio 1.5 Ratio 08/20/2017 Comp Metabolic Arg897 Os mo 275 mOsmo 08/20/2017 Vitamin D 25 Oh Pck5310 VITAMIN D, 25 HYDROXY 30.96 ng/mL 08/20/2017 B12 Dqc929 B12 >1500.00 pg/ml 02/22/2017 Cbc With Differential [...] 35.7 pg 02/20/2017 Cbc With Differential Ord2 Ralls% 6.3 % 02/20/2017 Cbc With Differential Ord2 [...] 3.19 K/ul 02/20/2017 Cbc With Differential Ord2 Ralls ABS# 0.5 K/ul 02/20/2017 Cbc With Differential Ord2 Eos ABS# 0.4 K/ul 02/20/2017 Cbc With Differential Ord2 Baso ABS# 0.0 K/ul 02/20/2017 Comp Metabolic Jpi970 NA 138 mEq/L 02/20/2017 Comp Metabolic Fmc444 K 4.5 mEq/L 02/20/2017 Comp Metabolic Mae013 CL 101 mEq/L 02/20/2017 Comp Metabolic Jeb753 CO2 31.0 mEq/L 02/20/2017 Comp Metabolic Ddu161 AN ION GAP 11 02/20/2017 Comp Metabolic Pyb202 GL UCOSE 120 mg/dL 02/20/2017 Comp Metabolic Jxx221 Cr eat 0.9 mg/dL 02/20/2017 Comp Metabolic Geo706 eG FR 83 ml/min/1.73m2 02/20 Comp Metabolic Fqi248 BUN 15 mg/dL 02/20/2017 Comp Metabolic Lns742 B/ C Ratio 16.1 Ratio 02/20/2017 Comp Metabolic Gut273 CA LCIUM 9.1 mg/dL 02/20/2017 Comp Metabolic Nqe474 AL K PHOS 67 U/L 02/20/2017 Comp Metabolic Tsd969 T(SGOT) 15 U/L 02/20/2017 Comp Metabolic Xcs327 AL T(SGPT) 16 U/L 02/20/2017 Comp Metabolic Fbb208 BI LI T 0.5 mg/dL 02/20/2017 Comp Metabolic Lgk689 AL BUMIN 4.0 g/dL 02/20/2017 Comp Metabolic Tdh838 TP RO 6.4 g/dL 02/20/2017 Comp Metabolic Udv826 GL OB 2.4 g/dL 02/20/2017 Comp Metabolic Hkd742 A/ G Ratio 1.7 Ratio 02/20/2017 Comp Metabolic Zrl885 Os mo 278 mOsmo 02/20/2017 Tsh Ord6 hTSH II 2.05 uIU/mL 02/20/2017 %Hba1C Gin844 % HbA1c 32230-3 7.6 % 02/20/2017 %Hba1C Nnq548 Gluc Ave 171 mg/dL 02/20/2017 Vitamin D 25 Oh Lhg5138 VITAMIN D, 25 HYDROXY 44.40 ng/mL 12/21/2016 Comp Metabolic Wxi903 NA 131 mEq/L 12/21/2016 Comp Metabolic Zsw430 K 4.2 mEq/L 12/21/2016 Comp Metabolic Jar003 CL 97 mEq/L 12/21/2016 Comp Metabolic Bbg990 CO2 27.0 mEq/L 12/21/2016 Comp Metabolic Pwd673 AN ION GAP 11 12/21/2016 Comp Metabolic Kny018 GL UCOSE 266 mg/dL 12/21/2016 Comp Metabolic Emu147 Cr eat 0.9 mg/dL 12/21/2016 Comp Metabolic Reg135 eG FR 88 ml/min/1.73m2 12/21 Comp Metabolic Bqd763 BUN 12 mg/dL 12/21/2016 Comp Metabolic Cbx976 B/ C Ratio 13.6 Ratio 12/21/2016 Comp Metabolic Kul291 CA LCIUM 8.6 mg/dL 12/21/2016 Comp Metabolic Nbs339 AL K PHOS 69 U/L 12/21/2016 Comp Metabolic Fds938 T(SGOT) 15 U/L 12/21/2016 Comp Metabolic Xtd482 AL T(SGPT) 14 U/L 12/21/2016 Comp Metabolic Cly995 BI LI T 0.3 mg/dL 12/21/2016 Comp Metabolic Qur488 AL BUMIN 3.7 g/dL 12/21/2016 Comp Metabolic Zpq689 TP RO 5.9 g/dL 12/21/2016 Comp Metabolic Mjr963 GL OB 2.2 g/dL 12/21/2016 Comp Metabolic Cnl210 A/ G Ratio 1.7 Ratio 12/21/2016 Comp Metabolic Swc449 Os mo 272 mOsmo 12/21/2016 Cbc With [...] 34.6 pg 12/21/2016 Cbc With Differential Ord2 Ralls% 6.9 % 12/21/2016 Cbc With Differential Ord2 [...] 2.05 K/ul 12/21/2016 Cbc With Differential Ord2 Ralls ABS# 0.4 K/ul 12/21/2016 Cbc With Differential Ord2 Eos ABS# 0.2 K/ul 12/21/2016 Cbc With Differential Ord2 Baso ABS# 0.0 K/ul 12/21/2016 Comp Metabolic Oiz791 NA 138 mEq/L 09/03/2016 Comp Metabolic Jml512 K 4.5 mEq/L 09/03/2016 Comp Metabolic Ipy374 CL 102 mEq/L 09/03/2016 Comp Metabolic Tmo259 CO2 30.0 mEq/L 09/03/2016 Comp Metabolic Gzh085 AN ION GAP 11 09/03/2016 Comp Metabolic Rjp427 GL UCOSE 113 mg/dL 09/03/2016 Comp Metabolic Mcm287 Cr eat 1.0 mg/dL 09/03/2016 Comp Metabolic Zuc733 eG FR 81 ml/min/1.73m2 09/03 Comp Metabolic Uqk826 BUN 10 mg/dL 09/03/2016 Comp Metabolic Gxt955 B/ C Ratio 10.5 Ratio 09/03/2016 Comp Metabolic Yjv883 CA LCIUM 9.1 mg/dL 09/03/2016 Comp Metabolic Zfa198 AL K PHOS 71 U/L 09/03/2016 Comp Metabolic Ahr505 T(SGOT) 18 U/L 09/03/2016 Comp Metabolic Tiy330 AL T(SGPT) 17 U/L 09/03/2016 Comp Metabolic Elj716 BI LI T 0.6 mg/dL 09/03/2016 Comp Metabolic Jub277 AL BUMIN 4.1 g/dL 09/03/2016 Comp Metabolic Bsa828 TP RO 6.4 g/dL 09/03/2016 Comp Metabolic Ugi180 GL OB 2.3 g/dL 09/03/2016 Comp Metabolic Xyx827 A/ G Ratio 1.8 Ratio 09/03/2016 Comp Metabolic Ufu258 Os mo 276 mOsmo 09/03/2016 Vitamin D 25 Oh Mwb4436 VITAMIN D, 25 HYDROXY 28.23 ng/mL 09/03/2016 [...] 34.4 pg 09/03/2016 Cbc With Differential Ord2 Ralls% 8.9 % 09/03/2016 Cbc With Differential Ord2 [...] 3.34 K/ul 09/03/2016 Cbc With Differential Ord2 Ralls ABS# 0.7 K/ul 09/03/2016 Cbc With Differential Ord2 Eos ABS# 0.4 K/ul 09/03/2016 Cbc With Differential Ord2 Baso ABS# 0.0 K/ul 09/03/2016 Lipid Ord30 CHOL 120 mg/dL 09/03/2016 Lipid Ord30 HDL 33.0 mg/dl 09/03/2016 Lipid Ord30 TRIG 161 mg/dL 09/03/2016 Lipid Ord30 LDL 55 mg/dL 09/03/2016 Lipid Ord30 C/HDL 3.6 Ratio 09/03/2016 %Hba1C Qsl176 % HbA1c 27722-6 7.5 % 09/03/2016 %Hba1C Rou346 Gluc Ave 169 mg/dL 09/03/2016 Tsh Ord6 hTSH II 1.50 uIU/mL 05/23/2016 %Hba1C Bjl898 % HbA1c 87765-9 7.6 % 05/23/2016 %Hba1C Nqs621 Gluc Ave 171 mg/dL 05/23/2016 Comp Metabolic Fuq032 NA 135 mEq/L 05/23/2016 Comp Metabolic Hht704 K 4.4 mEq/L 05/23/2016 Comp Metabolic Wao798 CL 99 mEq/L 05/23/2016 Comp Metabolic Cib139 CO2 28.0 mEq/L 05/23/2016 Comp Metabolic Kkk156 AN ION GAP 12 05/23/2016 Comp Metabolic Zps558 GL UCOSE 257 mg/dL 05/23/2016 Comp Metabolic Rrt082 Cr eat 0.8 mg/dL 05/23/2016 Comp Metabolic Uvo618 eG FR 95 ml/min/1.73m2 05/23 Comp Metabolic Fdf158 BUN 11 mg/dL 05/23/2016 Comp Metabolic Kos943 B/ C Ratio 13.3 Ratio 05/23/2016 Comp Metabolic Tjw921 CA LCIUM 9.0 mg/dL 05/23/2016 Comp Metabolic Ceq575 AL K PHOS 82 U/L 05/23/2016 Comp Metabolic Hpn169 T(SGOT) 21 U/L 05/23/2016 Comp Metabolic Zls061 AL T(SGPT) 20 U/L 05/23/2016 Comp Metabolic Ofi159 BI LI T 0.3 mg/dL 05/23/2016 Comp Metabolic Ock710 AL BUMIN 4.0 g/dL 05/23/2016 Comp Metabolic Hpt913 TP RO 6.4 g/dL 05/23/2016 Comp Metabolic Hlr568 GL OB 2.4 g/dL 05/23/2016 Comp Metabolic Alp321 A/ G Ratio 1.6 Ratio 05/23/2016 Comp Metabolic Uzb419 Os mo 278 mOsmo 05/23/2016 Cbc With [...] 34.5 pg 05/23/2016 Cbc With Differential Ord2 Ralls% 6.1 % 05/23/2016 Cbc With Differential Ord2 [...] 2.38 K/ul 05/23/2016 Cbc With Differential Ord2 Ralls ABS# 0.4 K/ul 05/23/2016 Cbc With Differential Ord2 Eos ABS# 0.2 K/ul 05/23/2016 Cbc With Differential Ord2 Baso ABS# 0.0 K/ul 05/23/2016 B12 Hww517 B12 597.00 pg/ml 05/23/2016 Metabolic Ord15 NA [...] 0.92 uIU/mL 07/29/2015 Vitamin D 25 Oh Hti9043 VITAMIN D, 25 HYDROXY 26.93 ng/mL 07/29/2015 %Hba1C Obx792 % HbA1c 53945-1 8.8 % 07/29/2015 %Hba1C Iyi636 Gluc Ave 206 mg/dL 07/29/2015 Cbc With [...] Ord2 RDW 14.9 % 07/29/2015 Comp Metabolic Okv559 NA 138 mEq/L 07/29/2015 Comp Metabolic Cpz803 K 4.4 mEq/L 07/29/2015 Comp Metabolic Kzk183 CL 102 mEq/L 07/29/2015 Comp Metabolic Jza627 CO2 28.0 mEq/L 07/29/2015 Comp Metabolic Nml662 AN ION GAP 12 07/29/2015 Comp Metabolic Pjx539 GL UCOSE 261 mg/dL 07/29/2015 Comp Metabolic Sex574 Cr eat 1.0 mg/dL 07/29/2015 Comp Metabolic Jbe059 eG FR 77 ml/min/1.73m2 07/29 Comp Metabolic Itr051 BUN 13 mg/dL 07/29/2015 Comp Metabolic Ezd881 B/ C Ratio 13.0 Ratio 07/29/2015 Comp Metabolic Yym967 CA LCIUM 9.1 mg/dL 07/29/2015 Comp Metabolic Hrw778 AL K PHOS 64 U/L 07/29/2015 Comp Metabolic Jwp851 T(SGOT) 20 U/L 07/29/2015 Comp Metabolic Awe068 AL T(SGPT) 22 U/L 07/29/2015 Comp Metabolic Jge312 BI LI T 0.4 mg/dL 07/29/2015 Comp Metabolic Ccc661 AL BUMIN 4.0 g/dL 07/29/2015 Comp Metabolic Bfz262 TP RO 6.1 g/dL 07/29/2015 Comp Metabolic Hok438 GL OB 2.1 g/dL 07/29/2015 Comp Metabolic Zyi164 A/ G Ratio 1.9 Ratio 07/29/2015 Comp Metabolic Glq891 Os mo 285 mOsmo 07/29/2015 Cbc With [...] Ord2 RDW 13.1 % 05/06/2015 Comp Metabolic Hen966 NA 134 mEq/L 05/06/2015 Comp Metabolic Hmy984 K 4.4 mEq/L 05/06/2015 Comp Metabolic Vbu660 CL 98 mEq/L 05/06/2015 Comp Metabolic Knq040 CO2 29.0 mEq/L 05/06/2015 Comp Metabolic Ubk047 AN ION GAP 11 05/06/2015 Comp Metabolic Fdw127 GL UCOSE 321 mg/dL 05/06/2015 Comp Metabolic Ugk142 Cr eat 1.0 mg/dL 05/06/2015 Comp Metabolic Swk901 eG FR 78 ml/min/1.73m2 05/06 Comp Metabolic Djs607 BUN 20 mg/dL 05/06/2015 Comp Metabolic Xks234 B/ C Ratio 20.4 Ratio 05/06/2015 Comp Metabolic Syc317 CA LCIUM 9.5 mg/dL 05/06/2015 Comp Metabolic Xvi956 AL K PHOS 62 U/L 05/06/2015 Comp Metabolic Apc793 T(SGOT) 21 U/L 05/06/2015 Comp Metabolic Kwf738 AL T(SGPT) 37 U/L 05/06/2015 Comp Metabolic Bkp917 BI LI T 0.4 mg/dL 05/06/2015 Comp Metabolic Wfu871 AL BUMIN 3.8 g/dL 05/06/2015 Comp Metabolic Gii647 TP RO 6.1 g/dL 05/06/2015 Comp Metabolic Rqc445 GL OB 2.3 g/dL 05/06/2015 Comp Metabolic Xnd193 A/ G Ratio 1.7 Ratio 05/06/2015 Comp Metabolic Mpb619 Os mo 283 mOsmo 05/06/2015 Tsh Ord6 hTSH II 1.65 uIU/mL 02/18/2015 B12 Muo388 B12 605.00 pg/ml 02/18/2015 %Hba1C Xvy644 % HbA1c 90136-6 8.3 % 02/18/2015 %Hba1C Pyk481 Gluc Ave 192 mg/dL 02/18/2015 Cbc With [...] Ord2 RDW 13.9 % 02/17/2015 Comp Metabolic Ynz386 NA 137 mEq/L 02/17/2015 Comp Metabolic Bwu822 K 4.4 mEq/L 02/17/2015 Comp Metabolic Tcs870 CL 100 mEq/L 02/17/2015 Comp Metabolic Nbr141 CO2 31.0 mEq/L 02/17/2015 Comp Metabolic Bhz328 AN ION GAP 10 02/17/2015 Comp Metabolic Fme980 GL UCOSE 307 mg/dL 02/17/2015 Comp Metabolic Zds823 Cr eat 1.0 mg/dL 02/17/2015 Comp Metabolic Atj223 eG FR 74 ml/min/1.73m2 02/17 Comp Metabolic Fuv128 BUN 22 mg/dL 02/17/2015 Comp Metabolic Gsz020 B/ C Ratio 21.4 Ratio 02/17/2015 Comp Metabolic Qxp296 CA LCIUM 9.5 mg/dL 02/17/2015 Comp Metabolic Oeu048 AL K PHOS 78 U/L 02/17/2015 Comp Metabolic Gaq051 T(SGOT) 18 U/L 02/17/2015 Comp Metabolic Xix599 AL T(SGPT) 32 U/L 02/17/2015 Comp Metabolic Ahe934 BI LI T 0.5 mg/dL 02/17/2015 Comp Metabolic Hzc233 AL BUMIN 4.3 g/dL 02/17/2015 Comp Metabolic Wmf468 TP RO 6.7 g/dL 02/17/2015 Comp Metabolic Upd434 GL OB 2.4 g/dL 02/17/2015 Comp Metabolic Vno886 A/ G Ratio 1.8 Ratio 02/17/2015 Comp Metabolic Xjj110 Os mo 289 mOsmo 02/17/2015 Review of [...] Procedure Codes Date THER/PROPH/DIAG INJ SC/IM CPT-4: 78695 01/30/2019 THER/PROPH/DIAG INJ SC/IM CPT-4: 90731 01/16/2019 THER/PROPH/DIAG INJ SC/IM CPT-4: 86840 01/01/2019 THER/PROPH/DIAG INJ SC/IM CPT-4: 60880 12/17/2018 THER/PROPH/DIAG INJ SC/IM CPT-4: 72933 12/02/2018 THER/PROPH/DIAG INJ SC/IM CPT-4: 80707 11/18/2018 THER/PROPH/DIAG INJ SC/IM CPT-4: 39700 11/04/2018 THER/PROPH/DIAG INJ SC/IM CPT-4: 36616 10/14/2018 THER/PROPH/DIAG INJ SC/IM CPT-4: 62174 10/03/2018 THER/PROPH/DIAG INJ SC/IM CPT-4: 96478 09/23/2018 THER/PROPH/DIAG INJ SC/IM CPT-4: 42785 09/02/2018 THER/PROPH/DIAG INJ SC/IM CPT-4: 60499 08/21/2018 THER/PROPH/DIAG INJ SC/IM CPT-4: 62999 08/08/2018 THER/PROPH/DIAG INJ SC/IM CPT-4: 26533 07/28/2018 THER/PROPH/DIAG INJ SC/IM CPT-4: 07075 07/16/2018 THER/PROPH/DIAG INJ SC/IM CPT-4: 73619 07/02/2018 PPPS, SUBSEQ VISIT CPT- 4: G0439 06/30/2018 THER/PROPH/DIAG INJ SC/IM CPT-4: 39360 06/24/2018 THER/PROPH/DIAG INJ SC/IM CPT-4: 49138 06/13/2018 ADMIN INFLUENZA VIRU S VAC CPT-4: G0008 06/06/2018 FLU VACC PRSV FREE I NC ANTIG CPT-4: 20265 06/06/2018 THER/PROPH/DIAG INJ SC/IM CPT-4: 97854 06/05/2018 THER/PROPH/DIAG INJ SC/IM CPT-4: 52438 05/30/2018 THER/PROPH/DIAG INJ SC/IM CPT-4: 53068 05/22/2018 THER/PROPH/DIAG INJ SC/IM CPT-4: 29758 05/12/2018 THER/PROPH/DIAG INJ SC/IM CPT-4: 26162 05/02/2018 THER/PROPH/DIAG INJ SC/IM CPT-4: 67098 04/24/2018 THER/PROPH/DIAG INJ SC/IM CPT-4: 63593 04/17/2018 KETOROLAC TROMETHAMI NE INJ CPT-4: J1885 03/07/2018 URINALYSIS NONAUTO W /O SCOPE CPT-4: 12421 03/07/2018 THER/PROPH/DIAG INJ SC/IM CPT-4: 87444 02/20/2018 TRIAMCINOLONE ACET I [place] NOS CPT-4: J3301 01/30/2018 THER/PROPH/DIAG INJ SC/IM CPT-4: 11143 01/17/2018 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 3-[address]: 010143816 CPT-4: G0436 04/25/2017 ADMIN INFLUENZA VIRU S VAC CPT-4: G0008 04/25/2017 ADMIN PNEUMOCOCCAL V ACCINE SNOMED CT: 34644233 CPT-4: G0009 04/25/2017 PNEUMOCOCCAL VACC [address]: 33844678 CPT-4: 34857 04/25/2017 FLU VACC PRSV FREE I NC ANTIG CPT-4: 10670 04/25/2017 ADMIN INFLUENZA VIRU S VAC CPT-4: G0008 05/22/2016 FLU VACC 4 TELLY 3 YRS PLUS IM Formatting Model/CDA Sections, Assigned to/Angela Clemons SNOMED CT: 97546982 CPT-4: 05146Wzvrzhu 05/22/2016 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 3-[address]: 657123608 CPT-4: G0436 11/25/2015 URINALYSIS NONAUTO W /O SCOPE CPT-4: 27073 05/09/2015 TRIAMCINOLONE ACET I [place] NOS CPT-4: J3301 04/12/2015 DESTRUCT PREMALG LESION CPT-4: 18205 03/07/2015 DESTRUCT PREMALG LES 2-14 CPT-4: 95347 03/07/2015 REMOVE IMPACTED EAR WAX UNI CPT-4: 36907 12/31/2014 THER/PROPH/DIAG INJ SC/IM CPT-4: 13065 12/23/2014 TRIAMCINOLONE ACET I [place] NOS CPT-4: J3301 12/23/2014 Vital Signs Date Vital 12/02/2018 Blood Pressure 1: 140/70 Code: 8480-6 BMI: 21.9 Code: 83491-5 Heart Rate 1: 61 bpm Height: 5'11" SpO2: 94% Weight: 157 lbs 10/17/2018 Blood Pressure 1: 124/54 Code: 8480-6 BMI: 21.9 Code: 84114-7 Heart Rate 1: 64 bpm Height: 5'11" SpO2: 93% Weight: 157 lbs 09/02/2018 Blood Pressure 1: 140/80 Code: 8480-6 BMI: 21.2 Code: 47811-2 Heart Rate 1: 68 bpm Height: 5'11" SpO2: 97% Weight: 152 lbs 06/30/2018 BMI: 21.8 Code: 74177-5 Height: 5'11" Weight: 156 lbs 06/06/2018 Blood Pressure 1: 128/76 Code: 8480-6 BMI: 22.0 Code: 35833-3 Heart Rate 1: 81 bpm Height: 5'11" SpO2: 92% Weight: 158 lbs 04/04/2018 Blood Pressure 1: 124/70 Code: 8480-6 BMI: 20.8 Code: 16379-3 Heart Rate 1: 65 bpm Height: 5'11" SpO2: 95% Weight: 149 lbs 03/07/2018 Blood Pressure 1: 148/70 Code: 8480-6 BMI: 21.2 Code: 56275-9 Heart Rate 1: 66 bpm Height: 5'11" SpO2: 94% Weight: 152 lbs 02/20/2018 Blood Pressure 1: 134/58 Code: 8480-6 BMI: 20.5 Code: 81842-1 Heart Rate 1: 61 bpm Height: 5'11" SpO2: 92% Weight: 147 lbs 01/30/2018 Blood Pressure 1: 158/68 Code: 8480-6 BMI: 21.5 Code: 88920-2 Heart Rate 1: 71 bpm Height: 5'11" SpO2: 92% Weight: 154 lbs 01/14/2018 Blood Pressure 1: 156/70 Code: 8480-6 Height: Weight: 01/13/2018 Blood Pressure 1: 148/62 Code: 8480-6 BMI: 20.9 Code: 13412-6 Heart Rate 1: 54 bpm Height: 5'11" SpO2: 97% Weight: 150 lbs 11/19/2017 Blood Pressure 1: 150/60 Code: 8480-6 BMI: 21.8 Code: 45808-8 Heart Rate 1: 63 bpm Height: 5'11" SpO2: 98% Weight: 156 lbs 10/02/2017 Blood Pressure 1: 168/60 Code: 8480-6 BMI: 21.9 Code: 08755-2 Heart Rate 1: 52 bpm Height: 5'11" SpO2: 97% Weight: 157 lbs 07/23/2017 Blood Pressure 1: 170/70 Code: 8480-6 BMI: 21.8 Code: 03161-9 Heart Rate 1: 65 bpm Height: 5'11" SpO2: 98% Weight: 156 lbs 04/25/2017 Blood Pressure 1: 138/60 Code: 8480-6 BMI: 21.6 Code: 69650-6 Heart Rate 1: 55 bpm Height: 5'11" SpO2: 93% Weight: 155 lbs 02/19/2017 Blood Pressure 1: 138/64 Code: 8480-6 BMI: 21.3 Code: 12769-7 Heart Rate 1: 52 bpm Height: 5'11" SpO2: 96% Weight: 152 lbs 8 oz 01/21/2017 Blood Pressure 1: 160/68 Code: 8480-6 BMI: 21.3 Code: 01425-9 Heart Rate 1: 62 bpm Height: 5'11" SpO2: 96% Weight: 153 lbs 12/20/2016 Blood Pressure 1: 124/66 Code: 8480-6 BMI: 21.5 Code: 88199-9 Height: 5'11" Weight: 154 lbs 08/23/2016 Blood Pressure 1: 142/52 Code: 8480-6 BMI: 21.2 Code: 88754-8 Heart Rate 1: 54 bpm Height: 5'11" SpO2: 96% Weight: 152 lbs 05/22/2016 Blood Pressure 1: 130/76 Code: 8480-6 BMI: 21.5 Code: 49563-5 Heart Rate 1: 78 bpm Height: 5'11" SpO2: 92% Weight: 154 lbs 02/24/2016 Blood Pressure 1: 128/80 Code: 8480-6 BMI: 21.2 Code: 50463-1 Heart Rate 1: 74 bpm Height: 5'11" SpO2: 96% Weight: 152 lbs 01/27/2016 Blood Pressure 1: 144/60 Code: 8480-6 BMI: 21.2 Code: 06357-0 Heart Rate 1: 74 bpm Height: 5'11" SpO2: 97% Weight: 152 lbs 11/25/2015 Blood Pressure 1: 110/52 Code: 8480-6 BMI: 21.9 Code: 31502-7 Heart Rate 1: 65 bpm Height: 5'11" SpO2: 92% Weight: 157 lbs 07/28/2015 Blood Pressure 1: 138/62 Code: 8480-6 BMI: 21.8 Code: 64275-8 Heart Rate 1: 63 bpm Height: 5'11" SpO2: 91% Weight: 156 lbs 05/26/2015 Blood Pressure 1: 120/58 Code: 8480-6 BMI: 21.5 Code: 54251-7 Heart Rate 1: 99 bpm Height: 5'11" SpO2: 96% Weight: 154 lbs 05/06/2015 Blood Pressure 1: 120/58 Code: 8480-6 BMI: 21.2 Code: 86522-6 Heart Rate 1: 66 bpm Height: 5'11" SpO2: 96% Weight: 152 lbs 04/25/2015 Blood Pressure 1: 136/62 Code: 8480-6 BMI: 21.2 Code: 07166-3 Heart Rate 1: 63 bpm Height: 5'11" SpO2: 97% Weight: 152 lbs 04/12/2015 Blood Pressure 1: 160/58 Code: 8480-6 BMI: 21.6 Code: 44968-9 Heart Rate 1: 62 bpm Height: 5'11" Weight: 155 lbs 03/24/2015 Blood Pressure 1: 138/68 Code: 8480-6 BMI: 22.0 Code: 39478-9 Heart Rate 1: 65 bpm Height: 5'11" SpO2: 96% Weight: 158 lbs 03/07/2015 Blood Pressure 1: 116/52 Code: 8480-6 BMI: 22.2 Code: 94908-4 Heart Rate 1: 64 bpm Height: 5'11" SpO2: 97% Weight: 159 lbs 02/17/2015 Blood Pressure 1: 148/58 Code: 8480-6 BMI: 21.3 Code: 67952-2 Heart Rate 1: 63 bpm Height: 5'11" SpO2: 97% Weight: 153 lbs 12/31/2014 Blood Pressure 1: 100/60 Code: 8480-6 BMI: 21.8 Code: 68220-5 Heart Rate 1: 68 bpm Height: 5'11" Weight: 156 lbs 12/23/2014 Blood Pressure 1: 148/64 Code: 8480-6 BMI: 21.9 Code: 09602-7 Heart Rate 1: 64 bpm Height: 5'11" [...] Encounters Encounter Performer Loca tion Codes Date ([id number]) 69066 EST. 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 CPT- 4: 62126 12/02/2018 ([id number] 05649 EST. P ATIENT, LEVEL III Diagnosis: Orthostatic hypotension[ICD10: I95.1] Diagnosis: Low back pain[ICD10: M54.5] Diagnosis: Unsteadiness on feet[ICD10: R26.81] Karmen Ash MD, [facility] CPT-4: 08944 10/17/2018 ([id number]) 84622 EST. 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 CPT-4: 72266 09/02/2018 [id number]) 15017 EST. P ATIENT, LEVEL IV Diagnosis: Cellulitis of face[ICD10: L03.211] Diagnosis: Type 2 diabetes mellitus without complications[ICD10: E11.9] Diagnosis: Essential (primary) hypertension[ICD10: I10] Diagnosis: Encounter for immunization[ICD10: Z23] Karmen Ash MD, [facility] CPT-4: 14189 06/06/2018 ([id number]) 52083 EST. 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 CPT-4: 51371 04/04/2018 ([id number]) 94368 EST. P ATIENT, LEVEL III Diagnosis: Low back pain[ICD10: M54.5] Diagnosis: Dysuria[ICD10: R30.0] Karmen Ash MD, [facility] CPT-4: 41231 03/07/2018 ([id number]) 67773 EST. 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 CPT-4: 28554 02/20/2018 ([id number]) 57217 EST. P ATIENT, LEVEL III Diagnosis: Chronic obstructive pulmonary disease with (acute) exacerbation[ICD10: J44.1] Karmen Ash MD, [facility] CPT-4: 68840 01/30/2018 81802 EST. PATIENT, LEVEL II Diagnosis: Insect bite (nonvenomous), left lower leg, initial encounter[ICD10: S80.862A] Karmen Ash MD, [facility] CPT-4: 29871 01/14/2018 ([id number]) 51494 EST. P ATIENT, LEVEL IV Diagnosis: Type 2 diabetes mellitus with hyperglycemia[ICD10: E11.65] Diagnosis: Chronic obstructive pulmonary disease, unspecified[ICD10: J44.9] Diagnosis: Other fatigue[ICD10: R53.83] Karmen Ash MD, [facility] CPT- 4: 77579 01/13/2018 ([id number]) 85936 EST. P ATIENT, LEVEL IV Diagnosis: Type 2 diabetes mellitus with hyperglycemia[ICD10: E11.65] Diagnosis: Vitamin D deficiency, unspecified[ICD10: E55.9] Diagnosis: Essential (primary) hypertension[ICD10: I10] Diagnosis: Abdominal distension (gaseous)[ICD10: R14.0] Diagnosis: Drug induced constipation[ICD10: K59.03] Karmen Ash MD, [facility] CPT-4: 65442 11/19/2017 75078 EST. PATIENT, LEVEL IV Diagnosis: Low back pain[ICD10: M54.5] Diagnosis: Chronic obstructive pulmonary disease, unspecified[ICD10: J44.9] Brunilda Ash MD, [facility] CPT-4: 33083 10/02/2017 ([id number]) 27300 EST. P ATIENT, LEVEL IV Diagnosis: Essential (primary) hypertension[ICD10: I10] Diagnosis: Type 2 diabetes mellitus with hyperglycemia[ICD10: E11.65] Diagnosis: Vitamin D deficiency, unspecified[ICD10: E55.9] Diagnosis: Mixed hyperlipidemia[ICD10: E78.2] Karmen Ash MD, [facility] CPT-4: 42283 07/23/2017 ([id number]) 09635 EST. P ATIENT, LEVEL IV Diagnosis: Essential (primary) hypertension[ICD10: I10] Diagnosis: Type 2 diabetes mellitus with hyperglycemia[ICD10: E11.65] Diagnosis: Chronic obstructive pulmonary disease, unspecified[ICD10: J44.9] Diagnosis: Nicotine dependence, unspecified, uncomplicated[ICD10: F17.200] Diagnosis: Encounter for immunization[ICD10: Z23] Karmen Ash MD, [facility] CPT-4: 12586 04/25/2017 ([id number]) 99158 EST. P ATIENT, LEVEL IV Diagnosis: Type 2 diabetes mellitus with hyperglycemia[ICD10: E11.65] Diagnosis: Essential (primary) hypertension[ICD10: I10] Diagnosis: Anemia, unspecified[ICD10: D64.9] Karmen Ash MD, [facility] CPT- 4: 55065 02/19/2017 ([id number]) 87313 EST. P ATIENT, LEVEL IV Diagnosis: Slow transit constipation[ICD10: K59.01] Diagnosis: Gastro-esophageal reflux disease without esophagitis[ICD10: K21.9] Diagnosis: Essential (primary) hypertension[ICD10: I10] Karmen Ash MD, [facility] CPT-4: 65602 01/21/2017 ([id number]) 07515 EST. P ATIENT, LEVEL IV Diagnosis: Type 2 diabetes mellitus with hyperglycemia[ICD10: E11.65] Diagnosis: Vitamin D deficiency, unspecified[ICD10: E55.9] Diagnosis: Essential (primary) hypertension[ICD10: I10] Diagnosis: Chronic obstructive pulmonary disease, unspecified[ICD10: J44.9] Karmen Ash MD, [facility] CPT-4: 93755 12/20/2016 ([id number]) 02815 EST. P ATIENT, LEVEL IV Diagnosis: Type 2 diabetes mellitus with hyperglycemia[ICD10: E11.65] Diagnosis: Essential (primary) hypertension[ICD10: I10] Diagnosis: Mixed hyperlipidemia[ICD10: E78.2] Diagnosis: Vitamin D deficiency, unspecified[ICD10: E55.9] Karmen Ash MD, [facility] CPT-4: 06813 08/23/2016 ([id number]) 38933 EST. P ATIENT, LEVEL IV Diagnosis: Type 2 diabetes mellitus with hyperglycemia[ICD10: E11.65] Diagnosis: Essential (primary) hypertension[ICD10: I10] Diagnosis: Chronic obstructive pulmonary disease, unspecified[ICD10: J44.9] Karmen Ash MD, [facility] CPT-4: 08484 05/22/2016 ([id number]) 43715 EST. P ATIENT, LEVEL III Diagnosis: Dysuria[ICD10: R30.0] Diagnosis: Essential (primary) hypertension[ICD10: I10] Karmen Ash MD, [facility] CPT-4: 64872 02/24/2016 ([id number]) 20299 EST. P ATIENT, LEVEL IV Diagnosis: Gastro-esophageal reflux disease without esophagitis[ICD10: K21.9] Diagnosis: Slow transit constipation[ICD10: K59.01] Diagnosis: Type 2 diabetes mellitus with hyperglycemia[ICD10: E11.65] Karmen Ash MD, [facility] CPT-4: 03650 01/27/2016 ([id number]) 98454 EST. P ATIENT, LEVEL IV Diagnosis: Essential (primary) hypertension[ICD10: I10] Diagnosis: Type 2 diabetes mellitus with hyperglycemia[ICD10: E11.65] Diagnosis: Vitamin D deficiency, unspecified[ICD10: E55.9] Diagnosis: Chronic obstructive pulmonary disease, unspecified[ICD10: J44.9] Diagnosis: Mixed hyperlipidemia[ICD10: E78.2] Diagnosis: Tobacco use[ICD10: Z72.0] Karmen Ash MD, [facility] CPT- 4: 97169 11/25/2015 ([id number]) 82323 EST. P ATIENT, LEVEL IV Diagnosis: Type 2 diabetes mellitus with hyperglycemia[ICD10: E11.65] Diagnosis: Essential (primary) hypertension[ICD10: I10] Diagnosis: Vitamin D deficiency, unspecified[ICD10: E55.9] Karmen Ash MD, [facility] CPT-4: 41574 07/28/2015 ([id number]) 79051 EST. P ATIENT, LEVEL III Diagnosis: Type 2 diabetes mellitus with hyperglycemia[ICD10: E11.65] Diagnosis: Essential (primary) hypertension[ICD10: I10] Violeta Ash MD, [facility] CPT-4: 67961 05/26/2015 ([id number]) 09515 EST. P ATIENT, LEVEL III Diagnosis: DIABETES TYPE II[ICD9: 250.00] Diagnosis: COPD (chronic obstructive pulmonary disease)[ICD9: 496] Diagnosis: ESSENTIAL HYPERTENSION[ICD9: 401.9] Diagnosis: Cough[ICD9: 786.2] Violeta Ash MD, [facility] CPT-4: 81941 05/06/2015 ([id number]) 97910 EST. P ATIENT, LEVEL III Diagnosis: COPD (chronic obstructive pulmonary disease)[ICD9: 496] Diagnosis: DIABETES TYPE II[ICD9: 250.00] Diagnosis: Muscle ache[ICD9: 729.1] Karmen Ash MD, [facility] CPT- 4: 88541 04/25/2015 ([id number]) 14295 EST. P ATIENT, LEVEL III Diagnosis: ACTINIC KERATOSIS[ICD9: 702.0] Diagnosis: COPD (chronic obstructive pulmonary disease)[ICD9: 496] Diagnosis: DIABETES TYPE II[ICD9: 250.00] Diagnosis: ACUTE URI[ICD9: 465.9] Violeta Ash MD, [facility] CPT-4: 75315 04/12/2015 ([id number]) 98207 EST. P ATIENT, LEVEL III Diagnosis: DIABETES TYPE II[ICD9: 250.00] Violeta Ash MD, [facility] CPT-4: 02916 03/24/2015 ([id number]) 65713 EST. P ATIENT, LEVEL IV Diagnosis: DIABETES TYPE II[ICD9: 250.00] Diagnosis: Hypoglycemia[ICD9: 251.2] Diagnosis: Skin texture changes[ICD9: 782.8] Violeta Ash MD, [facility] CPT-4: 43130 03/07/2015 ([id number]) 79027 EST. P ATIENT, LEVEL IV Diagnosis: COPD (chronic obstructive pulmonary disease)[ICD9: 496] Diagnosis: Fatigue[ICD9: 780.79] Diagnosis: Insulin dependent diabetes mellitus[ICD9: 250.00] Diagnosis: Unsteady gait[ICD9: 781.2] Maame Ash MD, [facility] CPT-4: 50180 02/17/2015 ([id number]) 52624 EST. P ATIENT, LEVEL IV Diagnosis: BPPV (benign paroxysmal positional vertigo)[ICD9: 386.11] Diagnosis: Impacted cerumen[ICD9: 380.4] Diagnosis: ESSENTIAL HYPERTENSION[ICD9: 401.9] Diagnosis: Insulin dependent diabetes mellitus[ICD9: 250.00] [facility] CPT-4: 68740 12/23/2014 ([id number]) [facility] 4 Diagnosis: Insulin dependent diabetes mellitus[ICD9: 250.00] Diagnosis: BPPV (benign paroxysmal positional vertigo)[ICD9: 386.11] Diagnosis: COPD (chronic obstructive pulmonary disease)[ICD9: 496] Diagnosis: Tobacco abuse[ICD9: 305.1] Diagnosis: Osteoarthritis[ICD9: 715.90] [facility] CPT- 4: 08910 12/09/2014 Plan of Care Planned Activity Notes C odes Status Date Patient Education: Patient Medication Summary Completed 01/30/2019 [...] WPtel: [facility] [phone] (30 min) Complex 12/02/2018 Patient Education: Patient Medication Summary Completed 12/02/2018 Patient Education: Diabetes Completed 12/02/2018 Appointment: Injection 11/18/2018 Patient Education: Patient Medication Summary Completed 11/18/2018 Appointment: Injection 11/04/2018 Patient Education: Patient Medication Summary Completed 11/04/2018 Appointment: Karmen Espinal WPtel: [address] [place], [place] [phone] (30 min) Complex 10/21/2018 Visit Plan: Orthostatic [...] a walker 10/17/2018 Appointment: Karmen Espinal WPtel: [address] [place], [place] [phone] (30 min) Complex 10/17/2018 Patient Education: Patient [...] medications. 09/02/2018 Appointment: [facility] [phone] [phone] (15 min) Moderate 09/02/2018 Patient Education: [...] [facility] [phone] [facility] - Annual Wellness Visit 06/30/2018 Patient [...] pain. 06/06/2018 Appointment: Karmen Espinal WPtel: [phone] [phone] (15 min) Moderate 06/06/2018 Patient Education: Patient [...] months 04/04/2018 Appointment: Karmen Espinal WPtel: [phone] [phone] [place] (15 min) Moderate 04/04/2018 Patient Education: Patient Medication Summary Completed 04/04/2018 Care Plan: Cbc With Differential Pending 04/04/2018 Care Plan: Testosterone repeat in 2 months Pending 04/04/2018 Appointment: Teddy Karmen WPtel: [phone] [phone] [place] (15 min) Moderate 03/25/2018 Visit Plan: Low back pain -history of kidney stone-UA negative today -increase fluids and call if pain does not resolve or if any worse. 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 01/30/2018 Appointment: Karmen Espinal WPtel: [facility] [place] [address] (15 min) Moderate 01/30/2018 Patient Education: Patient Medication Summary Completed 01/30/2018 Appointment: Karmen Espinal WPtel: [facility] [phone] (15 min) Moderate 01/28/2018 Appointment: Injection 01/17/2018 Patient Education: Patient Medication Summary Completed 01/17/2018 Visit Plan: Cellulitis - start oral antibiotics as directed, return to clinic as previously directed, call for acute change in symptoms, worsening redness, warmth, discharge. 01/14/2018 Appointment: Karmen Espinal WPtel:[phone] [phone] (10 min) Simple 01/14/2018 Patient Education: [...] Espinal WPtel: [facility] [place] [phone] (15 min) Moderate 01/13/2018 Patient Education: Patient Medication Summary Completed 01/13/2018 [phone] [place] [address] Patient's informed. Referral info ned monroy. Completed [...] change in blood pressure readings at home. Ytetvubb-pfpqkp-qnikh to see Dr Villatoro Constipation-start linzess daily 11/19/2017 Appointment: Karmen Espinal WPtel: [facility] [phone] (30 min) Complex 11/19/2017 Patient Education: Patient Medication Summary Completed 11/19/2017 Care Plan: Referral Order bloating, nausea SNOMED-CT : 803954804 Pending 11/19/2017 Visit Plan: Low back pain- [...] acute changes. 10/02/2017 Appointment: Brunilda Maravilla WPtel: [address] [place], [place] [phone] (15 min) Moderate 10/02/2017 Patient Education: Patient [...] controlled. 07/23/2017 Appointment: Karmen Espinal WPtel: [phone] [phone] (30 min) Complex 07/23/2017 Patient Education: Patient [...] pack/year history 04/25/2017 Appointment: [facility] [phone] [phone] (30 min) Complex 04/25/2017 Patient Education: [...] readings are starting to become less controlled. Ipkctx-iqzujpn-ahgjy labs 02/19/2017 Appointment: [facility]inal [facility]el[facility] [phone] [phone] (30 min) Complex 02/19/2017 Patient Education: [...] month 01/21/2017 Appointment: [facility] [phone] [phone] (30 min) Complex 01/21/2017 Patient Education: Patient Medication Summary Completed 01/21/2017 Patient Education: Smoking and Tobacco Addiction Completed 01/21/2017 Patient Education: Hypertension Completed 01/21/2017 Care Plan: Referral Order SNOMED-CT : [id number] Pending 01/21/2017 Visit Plan: Diabetes Mellitus - hav e recommended for the patient to have follow up labs prior to the next office visit. The patient has been instructed to continue with current medications as previously directed, angelica ontinue with regular FSBS monitoring to assure [...] acute changes. 12/20/2016 Appointment: Karmen Espinal WPtel: [facility] [place] [place] [address] (30 min) Complex 12/20/2016 Patient Education: Patient Medication Summary Completed 12/20/2016 Patient Education: Smoking and Tobacco Addiction Completed 12/20/2016 Patient Education: Hypertension Completed 12/20/2016 Appointment: Karmen Espinal WPtel: [facility] [phone] (30 min) Complex 09/06/2016 Visit Plan: [...] level 08/23/2016 Appointment: [facility] Espinal [facility]el[facility] [phone] [phone] (30 min) Complex 08/23/2016 Patient Education: [...] acute changes. 05/22/2016 Appointment: [facility]inal [facility]el[facility] [phone] [phone] (30 min) Complex 05/22/2016 Patient Education: Patient Medication Summary Completed 05/22/2016 Patient Education: Smoking and Tobacco Addiction Completed 05/22/2016 Care Plan: Cbc With Differential Ordered 05/22/2016 Care Plan: %Hba1C LOIN C : 48076-7 Ordered 05/22/2016 Care Plan: Tsh Ordered 05/22/2016 [...] update 02/24/2016 Appointment: Karmen Espinal WPtel: [phone] [phone] (30 min) Complex 02/24/2016 Patient Education: [...] regimen. 01/27/2016 Appointment: [facility] [phone] [phone] (30 min) Complex 01/27/2016 Patient Education: [...] use medication to assist cessation. 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 Qdesrvov-enivgzqm-EPVJ SIMVASTATIN X 2 WEEKS AND CALL WITH [...] Care Plan: COMPLETE CBC AUTOMATED LOINC : 85583-8 Ordered 03/24/2015 Visit Plan: Diabetes Mellitus - [...] for removal. 03/07/2015 Appointment: Violeta Ash WPtel: [address] [place] [phone] (15 min) Moderate 03/07/2015 Patient Education: Patient [...] The wax was [facility] ctitioner due to the wax [...] Care Plan: COMPLETE CBC AUTOMATED LOINC : 31749-0 Ordered 12/23/2014 Visit Plan: BPPV - Benign [...] WPtel: [facility] [phone] [place] ([place]) New Patient 12/09/2014 Patient Education: Patient Medication Summary Completed 12/09/2014 Patient Education: .Amazing charts Parox ysmal positional vertigo Completed 12/09/2014 Patient Education: Smoking and Tobacco Addiction Completed 12/09/2014 Referral: Hugo Villatoro [facility]tel:[phone] [facility] [place] Referral Appointment Requested Referral: Luis [...] readings are starting to become less controlled. Lbgmoq-mfvcjhg-iowsg labs . COPD -recent pneum onia-symptoms have [...] improved on this regimen. REFER TO DR DONOUHE FOR EGD/COLONOSCOPY DUE TO INCREASING SYMPTOMS-WEIGHT LOSS- [...] snacks as discussed-follow up in 1 month HOLD SIMVASTATIN X 2 WEEKS -CALL ME [...] POTENTIAL SIDE EFFECTS AND WORSENING OF SYMPTOMS. Ppcmspvi-macdrima-ZARU SIMVASTATIN X 2 WEEKS AND CALL WITH UPDATE BRING BLOOD SUGAR LO G TO NEXT [...] patient is stable, monitor for acute changes. decrease glipizide t o 5mg twice daily [...] Diabetes Mellitus - controlled - per r dallin FSBS reports. I have recommended for the [...] change in blood pressure readings at home. Oebgnxsx-bhxycb-yisip to see Dr Villatoro Constipation-start linzess daily [...]
--- OUTSIDE RECORDS SUMMARY | 2020-03-29 08:02 | XMS REPORT | CCD ---
Author Author Dick Espinal Organization [facility] Address [address] [place] [address] Phone Care Team Providers Care Program Advocate Name Role Phone PP Unavailable CCM Unavailable Summary Purpose Interface Exchange Insurance Providers Payer name Policy type / Coverage type Covered democrat ID Effective Begin Date Effective End Date WPS Medicare Part B Medicare Part B [id number] Unknown Unknown [employer] Medicar e Part B [id number] Unknown Unkn own Family history Father Diagnosis Age At Onset Cancer Unknown Mother Diagnosis Age At Onset Cancer Unknown Social History Social History Element Codes Description Effective Dates Marital status Unknown M arried 12/09/2014 Employment Unknown Retir ed 12/09/[address]: 51511178 Currently smokes tobacco 12/09/2014 Number of years using tobacco Unknown > 50 12/09/2014 Number of cigarettes/day Unknown 30 (Pack and a half) 12/09/[address]: 839461151 Never drinks alcohol 12/09/2014 Allergies, Adverse Reactions, [...] cypiona te 200 mg/mL intramuscular oil RxNorm: 9797542 1/2 Milliliter(s) IM [id number] 01/16/2019 05/15/2019 Active testosterone cypiona te 200 mg/mL intramuscular oil RxNorm: 5025944 Milliliter(s) IM 01/16/2019 01/16/2019 In active hydrocodone 5 mg-linh taminophen 325 mg tablet RxNorm: 577676 1 Tablet(s) PO Q6-8H as needed 01/14/2019 02/07/2019 Active testosterone cypiona te 200 mg/mL intramuscular oil RxNorm: 7619388 Milliliter(s) IM 01/01/2019 01/01/2019 In active Xanax 0.5 mg tablet RxNorm: 371452 1 Tablet(s) PO TID 12/18/2018 02/15/2019 Active testosterone cypiona te 200 mg/mL intramuscular oil RxNorm: 0180931 Milliliter(s) IM 12/17/2018 12/17/2018 In active hydrocodone 5 mg-linh taminophen 325 mg tablet RxNorm: 057134 1 Tablet(s) PO Q6-8H as needed 12/15/2018 01/08/2019 Inactive testosterone cypiona te 200 mg/mL intramuscular oil RxNorm: 6211849 Milliliter(s) IM 12/02/2018 12/02/2018 In active testosterone cypiona te 200 mg/mL intramuscular oil RxNorm: 4716033 Milliliter(s) IM 11/18/2018 11/18/2018 In active hydrocodone 5 mg-linh taminophen 325 mg tablet RxNorm: 850022 1 Tablet(s) PO Q6-8H as needed 11/13/2018 12/07/2018 Inactive testosterone cypiona te 200 mg/mL intramuscular oil RxNorm: 0345496 1/2 Milliliter(s) IM [id number] 11/04/2018 01/15/2019 Inactive testosterone cypiona te 200 mg/mL intramuscular oil RxNorm: 2183302 Milliliter(s) IM 11/04/2018 11/04/2018 In active nicotine 21 mg/24 hr daily transdermal patch RxNorm: 912387 1 TD daily 10/31/2018 10/30/2018 In active nicotine 21 mg/24 hr daily transdermal patch RxNorm: 206216 1 TD daily 10/31/2018 11/29/2018 In active meclizine 25 mg tablet RxNorm: 860175 1 Tablet(s) PO Q6 PRN TAKE ONE TABLET BY MOUTH EVERY 6 HOURS NEEDED 10/17/2018 01/14/2019 Inactive hydrocodone 5 mg-linh taminophen 325 mg tablet RxNorm: 306992 1 Tablet(s) PO Q6-8H as needed 10/17/2018 11/10/2018 Inactive metformin 500 mg tablet RxNorm: 660432 Tablet(s) TAKE 1 TABLET BY MOUTH DAILY 10/15/2018 10/09/2019 Ac tive lisinopril 10 mg tablet RxNorm: 888530 TAKE 1 TABLET BY MOUTH TWO TIMES DAILY 10/15/2018 10/09/2019 Ac tive - First Attempt Ref: [id number] testosterone cypiona te 200 mg/mL intramuscular oil RxNorm: 2444874 Milliliter(s) IM 10/14/2018 10/14/2018 In active Xanax 0.5 mg tablet RxNorm: 591934 1 Tablet(s) PO TID 10/03/2018 11/30/2018 Inactive testosterone cypiona te 200 mg/mL intramuscular oil RxNorm: 9365013 1/2 Milliliter(s) IM weekly 10/03/2018 11/03/2018 Inactive testosterone cypiona te 200 mg/mL intramuscular oil RxNorm: 2504559 Milliliter(s) IM 10/03/2018 10/03/2018 In active testosterone cypiona te 200 mg/mL intramuscular oil RxNorm: 8406791 Milliliter(s) IM 09/23/2018 09/23/2018 In active hydrocodone 5 mg-linh taminophen 325 mg tablet RxNorm: 084389 1 Tablet(s) PO Q6-8H as needed 09/22/2018 10/16/2018 Inactive testosterone cypiona te 200 mg/mL intramuscular oil RxNorm: 3189221 1/2 Milliliter(s) IM 09/02/2018 09/02/2018 Inactive testosterone enantha te 200 mg/mL intramuscular oil RxNorm: 794039 Milliliter(s) IM 08/21/2018 08/21/2018 In active hydrocodone 5 mg-linh taminophen 325 mg tablet RxNorm: 677785 1 Tablet(s) PO Q6-8H as needed 08/21/2018 09/14/2018 Inactive testosterone cypiona te 200 mg/mL intramuscular oil RxNorm: 3715947 Milliliter(s) IM 08/08/2018 08/08/2018 In active testosterone cypiona te 200 mg/mL intramuscular oil RxNorm: 4374944 1/2 Milliliter(s) IM 07/28/2018 07/28/2018 Inactive hydrocodone 5 mg-linh taminophen 325 mg tablet RxNorm: 934861 1 Tablet(s) PO Q6-8H as needed 07/21/2018 08/14/2018 Inactive testosterone cypiona te 200 mg/mL intramuscular oil RxNorm: 471837 Milliliter(s) IM 07/16/2018 07/16/2018 In active testosterone cypiona te 200 mg/mL intramuscular oil RxNorm: 468520 Milliliter(s) IM 07/02/2018 07/02/2018 In active Xanax 0.5 mg tablet RxNorm: 085006 1 Tablet(s) PO TID 06/27/2018 08/24/2018 Inactive testosterone cypiona te 200 mg/mL intramuscular oil RxNorm: 254305 Milliliter(s) IM 06/24/2018 06/24/2018 In active hydrocodone 5 mg-linh taminophen 325 mg tablet RxNorm: 635963 1 Tablet(s) PO Q6-8H as needed 06/23/2018 07/17/2018 Inactive testosterone cypiona te 200 mg/mL intramuscular oil RxNorm: 609311 Milliliter(s) IM 06/13/2018 06/13/2018 In active testosterone cypiona te 200 mg/mL intramuscular oil RxNorm: 515223 Milliliter(s) IM 06/05/2018 06/05/2018 In active testosterone cypiona te 200 mg/mL intramuscular oil RxNorm: 3722639 1/2 Milliliter(s) IM weekly 05/30/2018 09/26/2018 Inactive testosterone cypiona te 200 mg/mL intramuscular oil RxNorm: 269456 Milliliter(s) IM 05/30/2018 05/30/2018 In active testosterone cypiona te 200 mg/mL intramuscular oil RxNorm: 207495 Milliliter(s) IM 05/22/2018 05/22/2018 In active hydrocodone 5 mg-linh taminophen 325 mg tablet RxNorm: 691629 1 Tablet(s) PO Q6-8H as needed 05/20/2018 06/13/2018 Inactive testosterone cypiona te 200 mg/mL intramuscular oil RxNorm: 887715 1/2 Milliliter(s) IM 05/12/2018 05/12/2018 Inactive testosterone cypiona te 200 mg/mL intramuscular oil RxNorm: 174488 Milliliter(s) IM 05/02/2018 05/02/2018 In active testosterone cypiona te 200 mg/mL intramuscular oil RxNorm: 999638 1/2 Milliliter(s) IM weekly 04/24/2018 05/29/2018 Inactive testosterone cypiona te 200 mg/mL intramuscular oil RxNorm: 706379 0.5 Milliliter(s) IM 04/24/2018 04/24/2018 Inactive hydrocodone 5 mg-linh taminophen 325 mg tablet RxNorm: 932688 1 Tablet(s) PO Q6-8H as needed 04/22/2018 05/16/2018 Inactive testosterone cypiona te 200 mg/mL intramuscular oil RxNorm: 445193 1/2 Milliliter(s) IM 04/17/2018 04/17/2018 Inactive testosterone cypiona te 200 mg/mL intramuscular oil RxNorm: 432631 1/2 Milliliter(s) IM weekly 04/16/2018 04/23/2018 Inactive Jardiance 10 mg tablet RxNorm: 5007934 1 Tablet(s) PO daily 04/04/2018 12/29/2018 Inactive Protonix 40 mg table t,delayed release RxNorm: 356771 1 Tablet(s) PO daily TAKE 1 TABLET BY MOUTH DAILY 04/04/2018 03/29/2019 Active - Ref: [id number] testosterone cypiona te 200 mg/mL intramuscular oil RxNorm: 081386 1 Milliliter(s) IM monthly 04/04/2018 04/15/2018 Inactive hydrocodone 5 mg-linh taminophen 325 mg tablet RxNorm: 319048 1 Tablet(s) PO Q6-8H as needed 03/19/2018 04/12/2018 Inactive Flomax 0.4 mg capsule RxNorm: 347091 1 Capsule(s) PO daily 03/10/2018 03/04/2019 Active Urecholine 25 mg tablet RxNorm: 173776 1 Tablet(s) PO BID 03/10/2018 07/07/2018 Inactive ketorolac 60 mg/2 mL intramuscular solution RxNorm: 7527378 Milliliter(s) IM 03/07/2018 03/07/2018 In active metformin 500 mg tablet RxNorm: 748329 Tablet(s) TAKE 1 TABLET BY MOUTH DAILY 02/20/2018 02/13/2019 Ac tive 1 q am and 1/2 tab q pm hydrocodone 5 mg-linh taminophen 325 mg tablet RxNorm: 475856 1 Tablet(s) PO Q6-8H as needed 02/20/2018 03/16/2018 Inactive Kenalog 40 mg/mL bartolome pension for injection RxNorm: 8418510 1.5 Milliliter(s) In j 01/30/2018 01/30/2018 In active hydrocodone 5 mg-linh taminophen 325 mg tablet RxNorm: 165700 1 Tablet(s) PO Q6-8H as needed 01/23/2018 02/16/2018 Inactive Urecholine 25 mg tablet RxNorm: 902449 1 Tablet(s) PO BID 01/22/2018 03/09/2018 Inactive Flomax 0.4 mg capsule RxNorm: 032522 1 Capsule(s) PO daily 01/22/2018 03/09/2018 Inactive Flomax 0.4 mg capsule RxNorm: 574202 1 Capsule(s) PO daily 01/22/2018 01/21/2018 Inactive Urecholine 25 mg tablet RxNorm: 622693 1 Tablet(s) PO BID 01/22/2018 01/21/2018 Inactive testosterone cypiona te 200 mg/mL intramuscular oil RxNorm: 144197 Milliliter(s) IM 01/17/2018 01/17/2018 In active testosterone cypiona te 200 mg/mL intramuscular oil RxNorm: 725687 1 Milliliter(s) IM monthly 01/17/2018 04/03/2018 Inactive doxycycline hyclate 100 mg tablet RxNorm: 295637 1 Tablet(s) PO BID 01/14/2018 01/23/2018 Inactive lisinopril 10 mg tablet RxNorm: 896673 TAKE 1 TABLET BY MOUTH TWO TIMES DAILY 01/14/2018 10/14/2018 In active - First Attempt Ref: [id number] nystatin 100,000 uni t/mL oral suspension RxNorm: 061463 4 Milliliter(s) PO QI D Swish and swallow 01/08/2018 01/07/2018 Inactive nystatin 100,000 uni t/mL oral suspension RxNorm: 676165 4 Milliliter(s) PO QI D Swish and swallow 01/08/2018 01/12/2018 Inactive Xanax 0.5 mg tablet RxNorm: 855828 1 Tablet(s) PO TID 01/08/2018 12/23/2018 Inactive simvastatin 40 mg ta blet RxNorm: 141937 TAKE 1 TABLET BY MOUT H DAILY AT BEDTIME 12/30/2017 12/24/2018 In active - First Attempt Ref: [id number] metformin 500 mg tablet RxNorm: 295005 TAKE 1 TABLET BY MOUTH DAILY 12/30/2017 02/19/2018 Inactive - First Attempt Ref: [id number] hydrocodone 5 mg-linh taminophen 325 mg tablet RxNorm: 229243 1 Tablet(s) PO Q6-8H as needed 12/25/2017 01/18/2018 Inactive Protonix 40 mg table t,delayed release RxNorm: 208464 Tablet(s) TAKE 1 TABL ET BY MOUTH DAILY 11/20/2017 04/03/2018 Inactive - Ref: [id number] Linzess 72 mcg capsule RxNorm: 3902908 1 Capsule(s) PO daily 11/19/2017 No Stop Date Active hydrocodone 5 mg-linh taminophen 325 mg tablet RxNorm: 063376 1 Tablet(s) PO Q6-8H as needed 11/19/2017 12/13/2017 Inactive hydrocodone 5 mg-linh taminophen 325 mg tablet RxNorm: 631493 1 Tablet(s) PO Q6-8H as needed 10/28/2017 11/18/2017 Inactive Xanax 0.5 mg tablet RxNorm: 209360 1 Tablet(s) PO TID 10/25/2017 12/22/2017 Inactive Xanax 0.5 mg tablet RxNorm: 719555 TAKE ONE TABLET BY MOUTH THREE TIMES A D AY 10/24/2017 12/01/2018 In active hydrocodone 5 mg-linh taminophen 325 mg tablet RxNorm: 019506 1 Tablet(s) PO Q6-8H as needed 09/30/2017 10/24/2017 Inactive Protonix 40 mg table t,delayed release RxNorm: 447980 TAKE 1 TABLET BY MOUT H DAILY 09/16/2017 11/19/2017 In active - Ref: [id number] Yovana Perkins 300 unit/mL (1.5 mL) subcutaneous insulin pen RxNorm: 0297431 35 Unit(s) SQ QHS 08/30/2017 No Stop Date Active dosage increase hydrocodone 5 mg-linh taminophen 325 mg tablet RxNorm: 688568 1 Tablet(s) PO Q6-8H as needed 08/28/2017 09/29/2017 Inactive hydrocodone 5 mg-linh taminophen 325 mg tablet RxNorm: 572512 1 Tablet(s) PO Q6-8H as needed 07/23/2017 08/24/2017 Inactive lisinopril 10 mg tablet RxNorm: 715744 1 Tablet(s) PO BID Take 1 tablet by mout h daily 07/23/2017 01/13/2018 Inactive hydrocodone 5 mg-linh taminophen 325 mg tablet RxNorm: 150369 1 Tablet(s) PO Q6-8H as needed 06/27/2017 07/22/2017 Inactive Xanax 0.5 mg tablet RxNorm: 569733 1 Tablet(s) PO TID 06/18/2017 10/25/2017 Inactive hydrocodone 5 mg-linh taminophen 325 mg tablet RxNorm: 505425 1 Tablet(s) PO Q6-8H as needed 05/27/2017 06/26/2017 Inactive Levaquin 500 mg tablet RxNorm: 188709 1 Tablet(s) PO daily 05/24/2017 05/23/2017 Inactive Levaquin 500 mg tablet RxNorm: 979889 1 Tablet(s) PO daily 05/24/2017 05/30/2017 Inactive Protonix 40 mg table t,delayed release RxNorm: 346501 Take 1 tablet by mout h daily 04/29/2017 09/15/2017 In active - Ref: [id number] hydrocodone 5 mg-linh taminophen 325 mg tablet RxNorm: 078669 1 Tablet(s) PO Q6-8H as needed 04/25/2017 05/26/2017 Inactive metformin 500 mg tablet RxNorm: 747932 Take 1 tablet by mouth daily 04/08/2017 12/29/2017 Inactive - First Attempt Ref: [id number] hydrocodone 5 mg-linh taminophen 325 mg tablet RxNorm: 303172 1 Tablet(s) PO Q6-8H as needed 03/27/2017 04/24/2017 Inactive hydrocodone 5 mg-linh taminophen 325 mg tablet RxNorm: 666528 1 Tablet(s) PO Q6-8H as needed 02/25/2017 03/26/2017 Inactive Protonix 40 mg table t,delayed release RxNorm: 430440 Tablet(s) Take 1 tabl et by mouth BID 02/25/2017 04/28/2017 Inactive Protonix 40 mg table t,delayed release RxNorm: 962251 Tablet(s) Take 1 tabl et by mouth BID 02/19/2017 02/18/2017 Inactive Protonix 40 mg table t,delayed release RxNorm: 193718 Tablet(s) Take 1 tabl et by mouth BID 02/19/2017 02/24/2017 Inactive lisinopril 10 mg tablet RxNorm: 948554 Take 1 tablet by mouth daily 01/29/2017 07/22/2017 Inactive - First Attempt Ref: [id number] hydrocodone 5 mg-linh taminophen 325 mg tablet RxNorm: 305130 1 Tablet(s) PO Q6-8H as needed 01/25/2017 02/24/2017 Inactive simvastatin 40 mg ta blet RxNorm: 839977 Tablet(s) Take 1 tabl et by mouth daily at bedtime 01/03/2017 12/28/2017 Inactive lisinopril 10 mg tablet RxNorm: 704150 Tablet(s) Take 1 tablet by mouth daily 01/03/2017 01/28/2017 In active Protonix 40 mg table t,delayed release RxNorm: 825849 Tablet(s) Take 1 tabl et by mouth daily 12/28/2016 02/18/2017 Inactive hydrocodone 5 mg-linh taminophen 325 mg tablet RxNorm: 463651 1 Tablet(s) PO Q6-8H as needed 12/26/2016 01/24/2017 Inactive Xanax 0.5 mg tablet RxNorm: 742545 1 Tablet(s) PO TID 12/12/2016 03/11/2017 Inactive simvastatin 40 mg ta blet RxNorm: 122062 Tablet(s) Take 1 tabl et by mouth daily at bedtime 11/30/2016 01/02/2017 Inactive simvastatin 40 mg ta blet RxNorm: 064166 Take 1 tablet by mout h daily at bedtime 11/29/2016 11/29/2016 In active - First Attempt Ref: [id number] Protonix 40 mg table t,delayed release RxNorm: 722085 Take 1 tablet by mout h daily 11/27/2016 12/27/2016 In active - First Attempt Ref: [id number] hydrocodone 5 mg-linh taminophen 325 mg tablet RxNorm: 469082 1 Tablet(s) PO Q6-8H as needed 11/26/2016 12/25/2016 Inactive hydrocodone 5 mg-linh taminophen 325 mg tablet RxNorm: 601585 1 Tablet(s) PO Q8 as needed 10/24/2016 11/25/2016 Inactive Xanax 0.5 mg tablet RxNorm: 507924 1 Tablet(s) PO TID 10/09/2016 12/25/2016 Inactive hydrocodone 5 mg-linh taminophen 325 mg tablet RxNorm: 812290 1 Tablet(s) PO Q8 as needed 09/27/2016 10/23/2016 Inactive lisinopril 10 mg tablet RxNorm: 509908 Take 1 tablet by mouth daily 09/25/2016 01/02/2017 Inactive - First Attempt Ref: [id number] Vitamin D2 50,000 un it capsule RxNorm: 942490 1 Capsule(s) PO QW 09/06/2016 12/01/2018 Inactive hydrocodone 5 mg-linh taminophen 325 mg tablet RxNorm: 142323 1 Tablet(s) PO Q8 as needed 08/28/2016 09/26/2016 Inactive Toujeo SoloStar 300 unit/mL (1.5 mL) subcutaneous insulin pen RxNorm: 7871399 25 Unit(s) SQ QHS 08/23/2016 08/29/2017 Inactive dosage increase hydrocodone 5 mg-linh taminophen 325 mg tablet RxNorm: 033809 1 Tablet(s) PO Q8 as needed 07/26/2016 08/27/2016 Inactive Protonix 40 mg table t,delayed release RxNorm: 571640 Take 1 tablet by mout h daily 07/24/2016 11/26/2016 In active - First Attempt Ref: [id number] hydrocodone 5 mg-linh taminophen 325 mg tablet RxNorm: 579124 1 Tablet(s) PO Q8 as needed 06/19/2016 07/21/2016 Inactive Yovana SoloStar 300 unit/mL (1.5 mL) subcutaneous insulin pen RxNorm: 3702332 32 Unit(s) SQ QHS 05/30/2016 08/22/2016 Inactive dosage increase hydrocodone 5 mg-linh taminophen 325 mg tablet RxNorm: 594515 1 Tablet(s) PO Q8 as needed 05/22/2016 06/18/2016 Inactive hydrocodone 5 mg-linh taminophen 325 mg tablet RxNorm: 199756 1 Tablet(s) PO Q8 as needed 04/18/2016 05/17/2016 Inactive Protonix 40 mg table t,delayed release RxNorm: 198561 Take 1 tablet by mout h daily 04/05/2016 07/03/2016 In active - Ref: [id number] metformin 500 mg tablet RxNorm: 126835 Take 1 tablet by mouth daily 04/04/2016 07/02/2016 Inactive - Ref: [id number] Xanax 0.5 mg tablet RxNorm: 760839 1 Tablet(s) PO TID 03/30/2016 09/25/2016 Inactive Xanax 0.5 mg tablet RxNorm: 571145 1 Tablet(s) PO TID 03/23/2016 12/25/2016 Inactive hydrocodone 5 mg-linh taminophen 325 mg tablet RxNorm: 228473 1 Tablet(s) PO Q8 as needed 03/06/2016 04/04/2016 Inactive Cipro 500 mg tablet RxNorm: 397733 1 Tablet(s) PO BID 02/24/2016 03/04/2016 Inactive Miralax 17 gram oral powder packet RxNorm: 268725 1 packet PO every oth er day 01/27/2016 No Stop Date Active hydrocodone 5 mg-linh taminophen 325 mg tablet RxNorm: 444825 1 Tablet(s) PO Q8 as needed 01/27/2016 02/25/2016 Inactive lisinopril 10 mg tablet RxNorm: 785428 1 Tablet(s) PO daily 01/12/2016 09/24/2016 Inactive simvastatin 40 mg ta blet RxNorm: 108645 1 Tablet(s) PO QHS 01/12/2016 11/28/2016 Inactive simvastatin 40 mg ta blet RxNorm: 137819 1 Tablet(s) PO QHS 01/11/2016 01/11/2016 Inactive lisinopril 10 mg tablet RxNorm: 171094 1 Tablet(s) PO daily 01/06/2016 01/11/2016 Inactive simvastatin 40 mg ta blet RxNorm: 668144 1 Tablet(s) PO daily 12/28/2015 01/10/2016 Inactive hydrocodone 5 mg-linh taminophen 325 mg tablet RxNorm: 161638 1 Tablet(s) PO Q8 as needed 12/27/2015 01/26/2016 Inactive Xanax 0.5 mg tablet RxNorm: 838525 1 Tablet(s) PO TID 11/30/2015 03/29/2016 Inactive Toujeo SoloStar 300 unit/mL (1.5 mL) subcutaneous insulin pen RxNorm: 0066864 30 Unit(s) SQ QHS 11/25/2015 05/29/2016 Inactive dosage increase meclizine 25 mg tablet RxNorm: 887867 1 Tablet(s) PO Q6 PRN TAKE ONE TABLET BY MOUTH EVERY 6 HOURS NEEDED 11/25/2015 02/22/2016 Inactive omeprazole 20 mg cap jacquelyn,delayed release RxNorm: 647652 1 Capsule(s) PO daily 10/06/2015 01/26/2016 In active Toujeo SoloStar 300 unit/mL (1.5 mL) subcutaneous insulin pen RxNorm: 8951431 35 Unit(s) SQ QHS 08/02/2015 11/24/2015 Inactive dosage increase Vitamin D2 50,000 un it capsule RxNorm: 312547 1 Capsule(s) PO QW 08/02/2015 09/05/2016 Inactive hydrocodone 5 mg-linh taminophen 325 mg tablet RxNorm: 636757 1 Tablet(s) PO Q8 as needed 07/11/2015 12/26/2015 Inactive Xanax 0.5 mg tablet RxNorm: 336533 1 Tablet(s) PO TID 06/30/2015 06/29/2015 Inactive Xanax 0.5 mg tablet RxNorm: 314728 1 Tablet(s) PO TID 06/30/2015 12/25/2015 Inactive hydrocodone 5 mg-linh taminophen 325 mg tablet RxNorm: 805859 1 Tablet(s) PO Q8 as needed 05/06/2015 07/10/2015 Inactive Symbicort 160 mcg-4. 5 mcg/actuation HFA aerosol inhaler RxNorm: 1372057 INH 04/25/2015 No Stop Date Active Levemir FlexTouch 10 0 unit/mL (3 mL) subcutaneous insulin pen RxNorm: 091532 30 Unit(s) SQ QHS 04/25/2015 11/24/2015 Inactive prednisone 20 mg tablet RxNorm: 352826 1 Tablet(s) PO BID 04/25/2015 04/29/2015 Inactive metformin 500 mg tablet RxNorm: 965250 1 Tablet(s) PO daily 04/25/2015 04/03/2016 Inactive amoxicillin 500 mg c apsule RxNorm: 614418 1 Capsule(s) PO TID 04/14/2015 04/13/2015 Inactive amoxicillin 500 mg c apsule RxNorm: 294750 1 Capsule(s) PO TID a nd recommend probiotic tid (otc) 04/14/2015 04/20/2015 Inactive Kenalog 40 mg/mL bartolome pension for injection RxNorm: 9002276 Milliliter(s) Inj 04/12/2015 04/12/2015 In active hydrocodone 5 mg-linh taminophen 325 mg tablet RxNorm: 546721 1 Tablet(s) PO Q8 as needed 03/30/2015 05/05/2015 Inactive Lantus 100 unit/mL s ubcutaneous solution RxNorm: 920957 25 Unit(s) SQ QPM 03/24/2015 04/25/2015 In active meclizine 25 mg tablet RxNorm: 279881 Tablet(s) TAKE ONE TABLET BY MOUTH EVERY 6 HOURS NEEDED 03/08/2015 04/06/2015 Inactive meclizine 25 mg tablet RxNorm: 181324 TAKE ONE TABLET BY MOUTH EVERY 6 HOURS A S NEEDED 02/25/2015 03/03/2015 Inactive Lantus 100 unit/mL s ubcutaneous solution RxNorm: 101607 20 Unit(s) SQ QPM 02/23/2015 03/23/2015 In active Lantus 100 unit/mL s ubcutaneous solution RxNorm: 173555 25 Unit(s) SQ QPM 02/23/2015 02/22/2015 In active hydrocodone 5 mg-linh taminophen 325 mg tablet RxNorm: 432093 1 Tablet(s) PO Q8 as needed 02/17/2015 03/29/2015 Inactive Xanax 0.5 mg tablet RxNorm: 831215 1 Tablet(s) PO TID 02/03/2015 06/29/2015 Inactive Lantus 100 unit/mL s ubcutaneous solution RxNorm: 223809 20 Unit(s) SQ QPM 12/29/2014 02/22/2015 In active Phenergan 12.5 mg re ctal suppository RxNorm: 128179 1 Suppository RTL Q6 PRN 12/23/2014 No Stop Date Active nausea Kenalog 40 mg/mL bartolome pension for injection RxNorm: 9978554 Milliliter(s) Inj 12/23/2014 12/23/2014 In active prednisone 20 mg tablet RxNorm: 101746 2 Tablet(s) PO daily 12/13/2014 12/17/2014 Inactive prednisone 20 mg tablet RxNorm: 249434 2 Tablet(s) PO daily 12/13/2014 12/12/2014 Inactive meclizine 25 mg tablet RxNorm: 504825 1 Tablet(s) PO Q6 PRN 12/09/2014 02/24/2015 Inactive hydrocodone 5 mg-linh taminophen 325 mg tablet RxNorm: 456546 1 Tablet(s) PO Q8 as needed 12/09/2014 02/16/2015 Inactive Vitamin B-12 1,000 m cg/mL oral drops RxNorm: 1523845 1 Milliliter(s) PO d aily No Start Date Active Alphagan P 0.1 % eye drops RxNorm: 992489 1 Drop(s) OPH BID No Start Date Active aspirin 325 mg table t,delayed release RxNorm: 725733 1 Tablet(s) PO daily No Start Date Active Tricor 145 mg tablet RxNorm: 791913 1 Tablet(s) PO daily No Start Date Active vitamin [id number] B1 oral liquid RxNorm: 1,000 Microgram(s) PO daily No Start Date Active atenolol 50 mg tablet RxNorm: 928946 1 Tablet(s) PO daily No Start Date Active Protonix 40 mg table t,delayed release RxNorm: 584979 1 Tablet(s) PO daily No Start Date 04/04/2016 Inactive glipizide 10 mg tablet RxNorm: 427517 1 Tablet(s) PO BID No Start Date 03/22/2015 Inactive Lantus 100 unit/mL s ubcutaneous solution RxNorm: 100753 15 Unit(s) SQ QPM No Start Date 12/28/2014 Inactive lisinopril 10 mg tablet RxNorm: 544111 1 Tablet(s) PO daily No Start Date 01/05/2016 Inactive Vitamin D2 50,000 un it capsule RxNorm: 340181 1 Capsule(s) PO QW No Start Date 08/01/2015 Inactive Toujeo SoloStar 300 unit/mL (1.5 mL) subcutaneous insulin pen RxNorm: 8863167 30 Unit(s) SQ QHS No Start Date 08/01/2015 Inactive simvastatin 40 mg ta blet RxNorm: 084494 1 Tablet(s) PO daily No Start Date 12/27/2015 Inactive testosterone cypiona te 200 mg/mL intramuscular oil RxNorm: 917336 1 Milliliter(s) IM monthly No Start Date 01/16/2018 Inactive hydrocodone 5 mg-linh taminophen 325 mg tablet RxNorm: 738118 1 Tablet(s) PO Q8 as needed No Start Date 12/08/2014 Inactive metformin 500 mg tablet RxNorm: 080556 1 Tablet(s) PO daily No Start Date 04/24/2015 Inactive omeprazole 20 mg cap jacquelyn,delayed release RxNorm: 782998 1 Capsule(s) PO daily No Start Date 10/05/2015 Inactive Flomax 0.4 mg capsule RxNorm: 873150 1 Capsule(s) PO daily No Start Date 03/23/2015 Inactive Medication Administered Medication Codes Instruc tions Start Date Status testosterone cypionate 200 mg/mL intramuscular oil RxNorm: 5251331 Milliliter 01/16/2019 Active testosterone cypionate 200 mg/mL intramuscular oil RxNorm: 7116441 Milliliter 01/01/2019 No longer Active testosterone cypionate 200 mg/mL intramuscular oil RxNorm: 4831084 Milliliter 12/17/2018 No longer Active testosterone cypionate 200 mg/mL intramuscular oil RxNorm: 7650669 Milliliter 12/02/2018 No longer Active testosterone cypionate 200 mg/mL intramuscular oil RxNorm: 8938009 Milliliter 11/18/2018 No longer Active testosterone cypionate 200 mg/mL intramuscular oil RxNorm: 3778733 Milliliter 11/04/2018 No longer Active testosterone cypionate 200 mg/mL intramuscular oil RxNorm: 2002782 Milliliter 10/14/2018 No longer Active testosterone cypionate 200 mg/mL intramuscular oil RxNorm: 4412543 Milliliter 10/03/2018 No longer Active testosterone cypionate 200 mg/mL intramuscular oil RxNorm: 2582930 Milliliter 09/23/2018 No longer Active testosterone cypionate 200 mg/mL intramuscular oil RxNorm: 3863259 1/2Milliliter 09/02/2018 No longer Active testosterone enanthate 200 mg/mL intramuscular oil RxNorm: 773427 Milliliter 08/21/2018 No longer Active testosterone cypionate 200 mg/mL intramuscular oil RxNorm: 6499631 Milliliter 08/08/2018 No longer Active testosterone cypionate 200 mg/mL intramuscular oil RxNorm: 2065693 1/2Milliliter 07/28/2018 No longer Active testosterone cypionate 200 mg/mL intramuscular oil RxNorm: 161862 Milliliter 07/16/2018 No longer Active testosterone cypionate 200 mg/mL intramuscular oil RxNorm: 886145 Milliliter 07/02/2018 No longer Active testosterone cypionate 200 mg/mL intramuscular oil RxNorm: 170611 [facility] 06/24/2018 No longer Active testosterone cypionate 200 mg/mL intramuscular oil RxNorm: 157979 [facility] 06/13/2018 No longer Active testosterone cypionate 200 mg/mL intramuscular oil RxNorm: 425730 [facility] 06/05/2018 No longer Active testosterone cypionate 200 mg/mL intramuscular oil RxNorm: 063697 [facility] 05/30/2018 No longer Active testosterone cypionate 200 mg/mL intramuscular oil RxNorm: 841090 [facility] 05/22/2018 No longer Active testosterone cypionate 200 mg/mL intramuscular oil RxNorm: 491819 1/2[facility] 05/12/2018 No longer Active testosterone cypionate 200 mg/mL intramuscular oil RxNorm: 225442 [facility] 05/02/2018 No longer Active testosterone cypionate 200 mg/mL intramuscular oil RxNorm: 652614 0.5[facility] 04/24/2018 No longer Active testosterone cypionate 200 mg/mL intramuscular oil RxNorm: 617053 1/2[facility] 04/17/2018 No longer Active ketorolac 60 mg/2 mL intramuscular solution RxNorm: 1795425 [facility] 03/07/2018 No longer Active Kenalog 40 mg/mL suspension for injection RxNorm: 6279086 1.5[facility] 01/30/2018 No longer Active testosterone cypionate 200 mg/mL intramuscular oil RxNorm: 604136 [facility] 01/17/2018 No longer Active Kenalog 40 mg/mL suspension for injection RxNorm: 2533439 [facility] 04/12/2015 No longer Active Kenalog 40 mg/mL suspension for injection RxNorm: 2280991 [facility] 12/23/2014 No longer Active Immunizations Vaccine Codes Date Status Influenza CVX: 141 06/06 completed Influenza CVX: 141 04/25 completed Pneumococcal (Adult) CVX: 133 04/25/2017 completed Influenza CVX: 141 05/22 completed Assessments Condition Codes Effectiv e Dates Testicular dysfunction, unspecified ICD-10: E29.9 ICD-9: 257.9 01/16/2019 Chronic obstructive pulmonary disease, unspecified ICD-10: J44.9 [...] 33.4 pg 12/02/2018 Cbc With Differential Ord2 Armstrong% 8.0 % 12/02/2018 Cbc With Differential Ord2 [...] 2.13 K/ul 12/02/2018 Cbc With Differential Ord2 Armstrong ABS# 0.6 K/ul 12/02/2018 Cbc With Differential Ord2 Eos ABS# 0.4 K/ul 12/02/2018 Cbc With Differential Ord2 Baso ABS# 0.0 K/ul 12/02/2018 Testosterone Huv161 Testo 213.5 ng/dL 12/02/2018 A1C Frequency Naj494 A1CF 33715-0 Last A1C performed at [facility] [place] lab on: 201812/02/2018 Testosterone Miy996 Testo 669.0 ng/dL 09/08/2018 %Hba1C Jxf191 % HbA1c 35796-4 7.4 % 09/08/2018 %Hba1C Bni281 Gluc Ave 166 mg/dL 09/08/2018 Lipid Ord30 CHOL 114 mg/dL 09/08/2018 Lipid Ord30 HDL 28.0 mg/dl 09/08/2018 Lipid Ord30 TRIG 154 mg/dL 09/08/2018 Lipid Ord30 LDL 55 mg/dL 09/08/2018 Lipid Ord30 C/HDL 4.1 Ratio 09/08/2018 Comp Metabolic Gxf296 NA 137 mEq/L 09/08/2018 Comp Metabolic Cjn585 K 4.3 mEq/L 09/08/2018 Comp Metabolic Bnj993 CL 100 mEq/L 09/08/2018 Comp Metabolic Utu981 CO2 27.0 mEq/L 09/08/2018 Comp Metabolic Zav904 AN ION GAP 14 09/08/2018 Comp Metabolic Wpw717 GL UCOSE 85 mg/dL 09/08/2018 Comp Metabolic Vqy084 Cr eat 1.1 mg/dL 09/08/2018 Comp Metabolic Qfk915 eG FR 70 ml/min/1.73m2 09/08 Comp Metabolic Gbj580 BUN 11 mg/dL 09/08/2018 Comp Metabolic Vgp523 B/ C Ratio 10.3 Ratio 09/08/2018 Comp Metabolic Ili377 CA LCIUM 9.2 mg/dL 09/08/2018 Comp Metabolic Swv293 AL K PHOS 65 U/L 09/08/2018 Comp Metabolic Nzz550 T(SGOT) 16 U/L 09/08/2018 Comp Metabolic Ihn971 AL T(SGPT) 14 U/L 09/08/2018 Comp Metabolic Nlu907 BI LI T 0.6 mg/dL 09/08/2018 Comp Metabolic Ten411 AL BUMIN 4.0 g/dL 09/08/2018 Comp Metabolic Gfc101 TP RO 6.6 g/dL 09/08/2018 Comp Metabolic Nqf406 GL OB 2.6 g/dL 09/08/2018 Comp Metabolic Nzf808 A/ G Ratio 1.6 Ratio 09/08/2018 Comp Metabolic Ghv894 Os mo 272 mOsmo 09/08/2018 Vitamin D 25 Oh Zkc8863 VITAMIN D, 25 HYDROXY 37.17 ng/mL 09/08/2018 [...] 33.3 pg 09/08/2018 Cbc With Differential Ord2 Armstrong% 8.1 % 09/08/2018 Cbc With Differential Ord2 [...] 2.44 K/ul 09/08/2018 Cbc With Differential Ord2 Armstrong ABS# 0.6 K/ul 09/08/2018 Cbc With Differential Ord2 Eos ABS# 0.3 K/ul 09/08/2018 Cbc With Differential Ord2 Baso ABS# 0.0 K/ul 09/08/2018 Tsh Ord6 TSH (3rd IS) 2.72 uIU/mL 09/08/2018 Comp Metabolic Ekm826 NA 139 mEq/L 04/01/2018 Comp Metabolic Pwl284 K 4.2 mEq/L 04/01/2018 Comp Metabolic Ppf608 CL 102 mEq/L 04/01/2018 Comp Metabolic Ufl357 CO2 29.0 mEq/L 04/01/2018 Comp Metabolic Zeo637 AN ION GAP 12 04/01/2018 Comp Metabolic Tgz000 GL UCOSE 87 mg/dL 04/01/2018 Comp Metabolic Yjx145 Cr eat 1.1 mg/dL 04/01/2018 Comp Metabolic Nrv539 eG FR 70 ml/min/1.73m2 04/01 Comp Metabolic Xep227 BUN 21 mg/dL 04/01/2018 Comp Metabolic Sak794 B/ C Ratio 19.4 Ratio 04/01/2018 Comp Metabolic Hnh510 CA LCIUM 9.1 mg/dL 04/01/2018 Comp Metabolic Xho011 AL K PHOS 60 U/L 04/01/2018 Comp Metabolic Syl736 T(SGOT) 15 U/L 04/01/2018 Comp Metabolic Lip021 AL T(SGPT) 18 U/L 04/01/2018 Comp Metabolic Tpk020 BI LI T 0.4 mg/dL 04/01/2018 Comp Metabolic Fev514 AL BUMIN 4.0 g/dL 04/01/2018 Comp Metabolic Xfo730 TP RO 6.5 g/dL 04/01/2018 Comp Metabolic Edq520 GL OB 2.5 g/dL 04/01/2018 Comp Metabolic Tdk937 A/ G Ratio 1.6 Ratio 04/01/2018 Comp Metabolic Rhv024 Os mo 280 mOsmo 04/01/2018 Lipid Ord30 [...] 34.3 pg 04/01/2018 Cbc With Differential Ord2 Armstrong% 6.0 % 04/01/2018 Cbc With Differential Ord2 [...] 3.25 K/ul 04/01/2018 Cbc With Differential Ord2 Armstrong ABS# 0.6 K/ul 04/01/2018 Cbc With Differential Ord2 Eos ABS# 0.4 K/ul 04/01/2018 Cbc With Differential Ord2 Baso ABS# 0.0 K/ul 04/01/2018 %Hba1C Smt429 % HbA1c 99430-5 8.0 % 04/01/2018 %Hba1C Xya962 Gluc Ave 183 mg/dL 04/01/2018 Testosterone Ber664 Testo 111.3 ng/dL 04/01/2018 Testosterone Suu927 Testo 135.4 ng/dL 01/14/2018 Cbc With Differential [...] 36.0 pg 01/14/2018 Cbc With Differential Ord2 Armstrong% 6.8 % 01/14/2018 Cbc With Differential Ord2 [...] 2.71 K/ul 01/14/2018 Cbc With Differential Ord2 Armstrong ABS# 0.8 K/ul 01/14/2018 Cbc With Differential Ord2 Eos ABS# 0.2 K/ul 01/14/2018 Cbc With Differential Ord2 Baso ABS# 0.0 K/ul 01/14/2018 Comp Metabolic Jot170 NA 134 mEq/L 11/20/2017 Comp Metabolic Zky953 K 4.4 mEq/L 11/20/2017 Comp Metabolic Nxx100 CL 99 mEq/L 11/20/2017 Comp Metabolic Ojb230 CO2 29.0 mEq/L 11/20/2017 Comp Metabolic Uyl580 AN ION GAP 10 11/20/2017 Comp Metabolic Apx368 GL UCOSE 218 mg/dL 11/20/2017 Comp Metabolic Zrn527 Cr eat 1.0 mg/dL 11/20/2017 Comp Metabolic Iyg026 eG FR 78 ml/min/1.73m2 11/20 Comp Metabolic Azv374 BUN 13 mg/dL 11/20/2017 Comp Metabolic Yuq866 B/ C Ratio 13.3 Ratio 11/20/2017 Comp Metabolic Rjj022 CA LCIUM 9.0 mg/dL 11/20/2017 Comp Metabolic Iam632 AL K PHOS 71 U/L 11/20/2017 Comp Metabolic Lyl690 T(SGOT) 18 U/L 11/20/2017 Comp Metabolic Vwh418 AL T(SGPT) 17 U/L 11/20/2017 Comp Metabolic Rum189 BI LI T 0.4 mg/dL 11/20/2017 Comp Metabolic Qaw016 AL BUMIN 4.1 g/dL 11/20/2017 Comp Metabolic Ugw752 TP RO 6.5 g/dL 11/20/2017 Comp Metabolic Jdn964 GL OB 2.4 g/dL 11/20/2017 Comp Metabolic Axj762 A/ G Ratio 1.8 Ratio 11/20/2017 Comp Metabolic Whn954 Os mo 275 mOsmo 11/20/2017 Cbc With [...] 35.2 pg 11/20/2017 Cbc With Differential Ord2 Armstrong% 7.2 % 11/20/2017 Cbc With Differential Ord2 [...] 3.34 K/ul 11/20/2017 Cbc With Differential Ord2 Armstrong ABS# 0.6 K/ul 11/20/2017 Cbc With Differential Ord2 Eos ABS# 0.3 K/ul 11/20/2017 Cbc With Differential Ord2 Baso ABS# 0.0 K/ul 11/20/2017 Vitamin D 25 Oh Yif7311 VITAMIN D, 25 HYDROXY 43.72 ng/mL 11/20/2017 %Hba1C Ffp753 % HbA1c 70724-6 7.4 % 11/20/2017 %Hba1C Ulh968 Gluc Ave 166 mg/dL 11/20/2017 %Hba1C Ord100 % HbA1c 88601-7 7.2 % 08/20/2017 %Hba1C Cgb853 Gluc Ave 160 mg/dL 08/20/2017 Lipid Ord30 [...] 34.7 pg 08/20/2017 Cbc With Differential Ord2 Armstrong% 7.6 % 08/20/2017 Cbc With Differential Ord2 [...] 2.42 K/ul 08/20/2017 Cbc With Differential Ord2 Armstrong ABS# 0.6 K/ul 08/20/2017 Cbc With Differential Ord2 Eos ABS# 0.3 K/ul 08/20/2017 Cbc With Differential Ord2 Baso ABS# 0.0 K/ul 08/20/2017 Tsh Ord6 hTSH II 2.27 uIU/mL 08/20/2017 Comp Metabolic Jvt994 NA 138 mEq/L 08/20/2017 Comp Metabolic Nbf181 K 4.3 mEq/L 08/20/2017 Comp Metabolic Fic487 CL 102 mEq/L 08/20/2017 Comp Metabolic Wbx153 CO2 29.0 mEq/L 08/20/2017 Comp Metabolic Ncm830 AN ION GAP 11 08/20/2017 Comp Metabolic Ryy019 GL UCOSE 89 mg/dL 08/20/2017 Comp Metabolic Cvk924 Cr eat 1.0 mg/dL 08/20/2017 Comp Metabolic Dqa140 eG FR 80 ml/min/1.73m2 08/20 Comp Metabolic Jgy974 BUN 13 mg/dL 08/20/2017 Comp Metabolic Uvk463 B/ C Ratio 13.5 Ratio 08/20/2017 Comp Metabolic Pvu468 CA LCIUM 9.2 mg/dL 08/20/2017 Comp Metabolic Mmv876 AL K PHOS 69 U/L 08/20/2017 Comp Metabolic Gal782 T(SGOT) 18 U/L 08/20/2017 Comp Metabolic Reg427 AL T(SGPT) 19 U/L 08/20/2017 Comp Metabolic Cbb206 BI LI T 0.6 mg/dL 08/20/2017 Comp Metabolic Hwi625 AL BUMIN 4.0 g/dL 08/20/2017 Comp Metabolic Vba787 TP RO 6.6 g/dL 08/20/2017 Comp Metabolic Ezy601 GL OB 2.6 g/dL 08/20/2017 Comp Metabolic Qdz259 A/ G Ratio 1.5 Ratio 08/20/2017 Comp Metabolic Akp972 Os mo 275 mOsmo 08/20/2017 Vitamin D 25 Oh Vzc2768 VITAMIN D, 25 HYDROXY 30.96 ng/mL 08/20/2017 B12 Hff509 B12 >1500.00 pg/ml 02/22/2017 Cbc With Differential [...] 35.7 pg 02/20/2017 Cbc With Differential Ord2 Armstrong% 6.3 % 02/20/2017 Cbc With Differential Ord2 [...] 3.19 K/ul 02/20/2017 Cbc With Differential Ord2 Armstrong ABS# 0.5 K/ul 02/20/2017 Cbc With Differential Ord2 Eos ABS# 0.4 K/ul 02/20/2017 Cbc With Differential Ord2 Baso ABS# 0.0 K/ul 02/20/2017 Comp Metabolic Fgf199 NA 138 mEq/L 02/20/2017 Comp Metabolic Psn403 K 4.5 mEq/L 02/20/2017 Comp Metabolic Tvn153 CL 101 mEq/L 02/20/2017 Comp Metabolic Dvh037 CO2 31.0 mEq/L 02/20/2017 Comp Metabolic Kiv024 AN ION GAP 11 02/20/2017 Comp Metabolic Zbj134 GL UCOSE 120 mg/dL 02/20/2017 Comp Metabolic Gvz598 Cr eat 0.9 mg/dL 02/20/2017 Comp Metabolic Heq831 eG FR 83 ml/min/1.73m2 02/20 Comp Metabolic Bau249 BUN 15 mg/dL 02/20/2017 Comp Metabolic Vwl024 B/ C Ratio 16.1 Ratio 02/20/2017 Comp Metabolic Fga648 CA LCIUM 9.1 mg/dL 02/20/2017 Comp Metabolic Rjl916 AL K PHOS 67 U/L 02/20/2017 Comp Metabolic Sfh049 T(SGOT) 15 U/L 02/20/2017 Comp Metabolic Abo370 AL T(SGPT) 16 U/L 02/20/2017 Comp Metabolic Idk889 BI LI T 0.5 mg/dL 02/20/2017 Comp Metabolic Gsy499 AL BUMIN 4.0 g/dL 02/20/2017 Comp Metabolic Bds891 TP RO 6.4 g/dL 02/20/2017 Comp Metabolic Vdf504 GL OB 2.4 g/dL 02/20/2017 Comp Metabolic Vfn849 A/ G Ratio 1.7 Ratio 02/20/2017 Comp Metabolic Qcb608 Os mo 278 mOsmo 02/20/2017 Tsh Ord6 hTSH II 2.05 uIU/mL 02/20/2017 %Hba1C Lgn488 % HbA1c 20408-9 7.6 % 02/20/2017 %Hba1C Swg548 Gluc Ave 171 mg/dL 02/20/2017 Vitamin D 25 Oh Zrl2947 VITAMIN D, 25 HYDROXY 44.40 ng/mL 12/21/2016 Comp Metabolic Pfz288 NA 131 mEq/L 12/21/2016 Comp Metabolic Wis585 K 4.2 mEq/L 12/21/2016 Comp Metabolic Sfp726 CL 97 mEq/L 12/21/2016 Comp Metabolic Uvp323 CO2 27.0 mEq/L 12/21/2016 Comp Metabolic Qrh684 AN ION GAP 11 12/21/2016 Comp Metabolic Zmt890 GL UCOSE 266 mg/dL 12/21/2016 Comp Metabolic Sel490 Cr eat 0.9 mg/dL 12/21/2016 Comp Metabolic Hlf312 eG FR 88 ml/min/1.73m2 12/21 Comp Metabolic Crt262 BUN 12 mg/dL 12/21/2016 Comp Metabolic Pnw004 B/ C Ratio 13.6 Ratio 12/21/2016 Comp Metabolic Adu096 CA LCIUM 8.6 mg/dL 12/21/2016 Comp Metabolic Odb276 AL K PHOS 69 U/L 12/21/2016 Comp Metabolic Sxk369 T(SGOT) 15 U/L 12/21/2016 Comp Metabolic Gpy300 AL T(SGPT) 14 U/L 12/21/2016 Comp Metabolic Dst137 BI LI T 0.3 mg/dL 12/21/2016 Comp Metabolic Fdw720 AL BUMIN 3.7 g/dL 12/21/2016 Comp Metabolic Klj297 TP RO 5.9 g/dL 12/21/2016 Comp Metabolic Ihe823 GL OB 2.2 g/dL 12/21/2016 Comp Metabolic Vaw957 A/ G Ratio 1.7 Ratio 12/21/2016 Comp Metabolic Wcf143 Os mo 272 mOsmo 12/21/2016 Cbc With [...] 34.6 pg 12/21/2016 Cbc With Differential Ord2 Armstrong% 6.9 % 12/21/2016 Cbc With Differential Ord2 [...] 2.05 K/ul 12/21/2016 Cbc With Differential Ord2 Armstrong ABS# 0.4 K/ul 12/21/2016 Cbc With Differential Ord2 Eos ABS# 0.2 K/ul 12/21/2016 Cbc With Differential Ord2 Baso ABS# 0.0 K/ul 12/21/2016 Comp Metabolic Kdp204 NA 138 mEq/L 09/03/2016 Comp Metabolic Lfk867 K 4.5 mEq/L 09/03/2016 Comp Metabolic Dau760 CL 102 mEq/L 09/03/2016 Comp Metabolic Arx635 CO2 30.0 mEq/L 09/03/2016 Comp Metabolic Oig850 AN ION GAP 11 09/03/2016 Comp Metabolic Nin288 GL UCOSE 113 mg/dL 09/03/2016 Comp Metabolic Jop379 Cr eat 1.0 mg/dL 09/03/2016 Comp Metabolic Dmm809 eG FR 81 ml/min/1.73m2 09/03 Comp Metabolic Srm604 BUN 10 mg/dL 09/03/2016 Comp Metabolic Xnr522 B/ C Ratio 10.5 Ratio 09/03/2016 Comp Metabolic Trm141 CA LCIUM 9.1 mg/dL 09/03/2016 Comp Metabolic Sui618 AL K PHOS 71 U/L 09/03/2016 Comp Metabolic Spx600 T(SGOT) 18 U/L 09/03/2016 Comp Metabolic Iru758 AL T(SGPT) 17 U/L 09/03/2016 Comp Metabolic Srp979 BI LI T 0.6 mg/dL 09/03/2016 Comp Metabolic Svm002 AL BUMIN 4.1 g/dL 09/03/2016 Comp Metabolic Smc524 TP RO 6.4 g/dL 09/03/2016 Comp Metabolic Ykj985 GL OB 2.3 g/dL 09/03/2016 Comp Metabolic Zrn249 A/ G Ratio 1.8 Ratio 09/03/2016 Comp Metabolic Zhp294 Os mo 276 mOsmo 09/03/2016 Vitamin D 25 Oh Rpr5512 VITAMIN D, 25 HYDROXY 28.23 ng/mL 09/03/2016 [...] 34.4 pg 09/03/2016 Cbc With Differential Ord2 Armstrong% 8.9 % 09/03/2016 Cbc With Differential Ord2 [...] 3.34 K/ul 09/03/2016 Cbc With Differential Ord2 Armstrong ABS# 0.7 K/ul 09/03/2016 Cbc With Differential Ord2 Eos ABS# 0.4 K/ul 09/03/2016 Cbc With Differential Ord2 Baso ABS# 0.0 K/ul 09/03/2016 Lipid Ord30 CHOL 120 mg/dL 09/03/2016 Lipid Ord30 HDL 33.0 mg/dl 09/03/2016 Lipid Ord30 TRIG 161 mg/dL 09/03/2016 Lipid Ord30 LDL 55 mg/dL 09/03/2016 Lipid Ord30 C/HDL 3.6 Ratio 09/03/2016 %Hba1C Cgv280 % HbA1c 75369-3 7.5 % 09/03/2016 %Hba1C Jzx807 Gluc Ave 169 mg/dL 09/03/2016 Tsh Ord6 hTSH II 1.50 uIU/mL 05/23/2016 %Hba1C Hzk120 % HbA1c 08214-0 7.6 % 05/23/2016 %Hba1C Cfy471 Gluc Ave 171 mg/dL 05/23/2016 Comp Metabolic Cuf307 NA 135 mEq/L 05/23/2016 Comp Metabolic Ghv041 K 4.4 mEq/L 05/23/2016 Comp Metabolic Qpa668 CL 99 mEq/L 05/23/2016 Comp Metabolic Wsj793 CO2 28.0 mEq/L 05/23/2016 Comp Metabolic Enh200 AN ION GAP 12 05/23/2016 Comp Metabolic Dtu599 GL UCOSE 257 mg/dL 05/23/2016 Comp Metabolic Eqg160 Cr eat 0.8 mg/dL 05/23/2016 Comp Metabolic Vyg365 eG FR 95 ml/min/1.73m2 05/23 Comp Metabolic Boj376 BUN 11 mg/dL 05/23/2016 Comp Metabolic Lmr813 B/ C Ratio 13.3 Ratio 05/23/2016 Comp Metabolic Trf967 CA LCIUM 9.0 mg/dL 05/23/2016 Comp Metabolic Fey785 AL K PHOS 82 U/L 05/23/2016 Comp Metabolic Ixp111 T(SGOT) 21 U/L 05/23/2016 Comp Metabolic Pmp812 AL T(SGPT) 20 U/L 05/23/2016 Comp Metabolic Trv940 BI LI T 0.3 mg/dL 05/23/2016 Comp Metabolic Bio741 AL BUMIN 4.0 g/dL 05/23/2016 Comp Metabolic Ffj590 TP RO 6.4 g/dL 05/23/2016 Comp Metabolic Dbb544 GL OB 2.4 g/dL 05/23/2016 Comp Metabolic Sqd296 A/ G Ratio 1.6 Ratio 05/23/2016 Comp Metabolic Eqb400 Os mo 278 mOsmo 05/23/2016 Cbc With [...] 34.5 pg 05/23/2016 Cbc With Differential Ord2 Armstrong% 6.1 % 05/23/2016 Cbc With Differential Ord2 [...] 2.38 K/ul 05/23/2016 Cbc With Differential Ord2 Armstrong ABS# 0.4 K/ul 05/23/2016 Cbc With Differential Ord2 Eos ABS# 0.2 K/ul 05/23/2016 Cbc With Differential Ord2 Baso ABS# 0.0 K/ul 05/23/2016 B12 Ryi244 B12 597.00 pg/ml 05/23/2016 Metabolic Ord15 NA [...] 0.92 uIU/mL 07/29/2015 Vitamin D 25 Oh Uqk6952 VITAMIN D, 25 HYDROXY 26.93 ng/mL 07/29/2015 %Hba1C Iwl196 % HbA1c 85367-7 8.8 % 07/29/2015 %Hba1C Ndu005 Gluc Ave 206 mg/dL 07/29/2015 Cbc With [...] Ord2 RDW 14.9 % 07/29/2015 Comp Metabolic Vlc669 NA 138 mEq/L 07/29/2015 Comp Metabolic Ptq931 K 4.4 mEq/L 07/29/2015 Comp Metabolic Jkm946 CL 102 mEq/L 07/29/2015 Comp Metabolic Bqw818 CO2 28.0 mEq/L 07/29/2015 Comp Metabolic Gsb592 AN ION GAP 12 07/29/2015 Comp Metabolic Hff136 GL UCOSE 261 mg/dL 07/29/2015 Comp Metabolic Zgq335 Cr eat 1.0 mg/dL 07/29/2015 Comp Metabolic Phf944 eG FR 77 ml/min/1.73m2 07/29 Comp Metabolic Wae016 BUN 13 mg/dL 07/29/2015 Comp Metabolic Rpd533 B/ C Ratio 13.0 Ratio 07/29/2015 Comp Metabolic Hut071 CA LCIUM 9.1 mg/dL 07/29/2015 Comp Metabolic Erj687 AL K PHOS 64 U/L 07/29/2015 Comp Metabolic Zfq641 T(SGOT) 20 U/L 07/29/2015 Comp Metabolic Rql061 AL T(SGPT) 22 U/L 07/29/2015 Comp Metabolic Vjx327 BI LI T 0.4 mg/dL 07/29/2015 Comp Metabolic Xht164 AL BUMIN 4.0 g/dL 07/29/2015 Comp Metabolic Pdl512 TP RO 6.1 g/dL 07/29/2015 Comp Metabolic Wnw071 GL OB 2.1 g/dL 07/29/2015 Comp Metabolic Utk038 A/ G Ratio 1.9 Ratio 07/29/2015 Comp Metabolic Iow375 Os mo 285 mOsmo 07/29/2015 Cbc With [...] Ord2 RDW 13.1 % 05/06/2015 Comp Metabolic Hvq744 NA 134 mEq/L 05/06/2015 Comp Metabolic Wxf826 K 4.4 mEq/L 05/06/2015 Comp Metabolic Rbb606 CL 98 mEq/L 05/06/2015 Comp Metabolic Qlo409 CO2 29.0 mEq/L 05/06/2015 Comp Metabolic Vnr507 AN ION GAP 11 05/06/2015 Comp Metabolic Aib786 GL UCOSE 321 mg/dL 05/06/2015 Comp Metabolic Ujy517 Cr eat 1.0 mg/dL 05/06/2015 Comp Metabolic Ajy002 eG FR 78 ml/min/1.73m2 05/06 Comp Metabolic Qtt135 BUN 20 mg/dL 05/06/2015 Comp Metabolic Zxw390 B/ C Ratio 20.4 Ratio 05/06/2015 Comp Metabolic Ciw941 CA LCIUM 9.5 mg/dL 05/06/2015 Comp Metabolic Dpc115 AL K PHOS 62 U/L 05/06/2015 Comp Metabolic Yrn769 T(SGOT) 21 U/L 05/06/2015 Comp Metabolic Ujj097 AL T(SGPT) 37 U/L 05/06/2015 Comp Metabolic Qkk135 BI LI T 0.4 mg/dL 05/06/2015 Comp Metabolic Ulu650 AL BUMIN 3.8 g/dL 05/06/2015 Comp Metabolic Lxw272 TP RO 6.1 g/dL 05/06/2015 Comp Metabolic Nrs453 GL OB 2.3 g/dL 05/06/2015 Comp Metabolic Cfx072 A/ G Ratio 1.7 Ratio 05/06/2015 Comp Metabolic Uzl134 Os mo 283 mOsmo 05/06/2015 Tsh Ord6 hTSH II 1.65 uIU/mL 02/18/2015 B12 Tyd980 B12 605.00 pg/ml 02/18/2015 %Hba1C Xxk815 % HbA1c 77381-8 8.3 % 02/18/2015 %Hba1C Ije853 Gluc Ave 192 mg/dL 02/18/2015 Cbc With [...] Ord2 RDW 13.9 % 02/17/2015 Comp Metabolic Awf784 NA 137 mEq/L 02/17/2015 Comp Metabolic Jfr370 K 4.4 mEq/L 02/17/2015 Comp Metabolic Cdk104 CL 100 mEq/L 02/17/2015 Comp Metabolic Nzb316 CO2 31.0 mEq/L 02/17/2015 Comp Metabolic Czl617 AN ION GAP 10 02/17/2015 Comp Metabolic Dbr470 GL UCOSE 307 mg/dL 02/17/2015 Comp Metabolic Tem430 Cr eat 1.0 mg/dL 02/17/2015 Comp Metabolic Dqc685 eG FR 74 ml/min/1.73m2 02/17 Comp Metabolic Owt152 BUN 22 mg/dL 02/17/2015 Comp Metabolic Pmw085 B/ C Ratio 21.4 Ratio 02/17/2015 Comp Metabolic Fpi798 CA LCIUM 9.5 mg/dL 02/17/2015 Comp Metabolic Arc075 AL K PHOS 78 U/L 02/17/2015 Comp Metabolic Don487 T(SGOT) 18 U/L 02/17/2015 Comp Metabolic Ihk888 AL T(SGPT) 32 U/L 02/17/2015 Comp Metabolic Njg285 BI LI T 0.5 mg/dL 02/17/2015 Comp Metabolic Nnc415 AL BUMIN 4.3 g/dL 02/17/2015 Comp Metabolic Rmh711 TP RO 6.7 g/dL 02/17/2015 Comp Metabolic Whe853 GL OB 2.4 g/dL 02/17/2015 Comp Metabolic Ybc863 A/ G Ratio 1.8 Ratio 02/17/2015 Comp Metabolic Loj618 Os mo 289 mOsmo 02/17/2015 Review of [...] smoking 02/17/2015 Respiratory cough 2014 Respiratory dyspnea 07/04/2015 Genitourinary/Nephrology No dysuria 02/17/2015 Genitourinary/Nephrology No hematuria [...] impaction 08/23/2016 None Full Exam - General 1995 [...] inspection of skin Location: face 03/07/2015 on [facility], cheeks,actinic keratosis with irritation on left cheek - left [facility] - croptherapy on these two lesions - [...] Procedure Codes Date THER/PROPH/DIAG INJ SC/IM CPT-4: 77067 01/16/2019 THER/PROPH/DIAG INJ SC/IM CPT-4: 89764 01/01/2019 THER/PROPH/DIAG INJ SC/IM CPT-4: 18074 12/17/2018 THER/PROPH/DIAG INJ SC/IM CPT-4: 78320 12/02/2018 THER/PROPH/DIAG INJ SC/IM CPT-4: 27561 11/18/2018 THER/PROPH/DIAG INJ SC/IM CPT-4: 40323 11/04/2018 THER/PROPH/DIAG INJ SC/IM CPT-4: 77824 10/14/2018 THER/PROPH/DIAG INJ SC/IM CPT-4: 06968 10/03/2018 THER/PROPH/DIAG INJ SC/IM CPT-4: 30400 09/23/2018 THER/PROPH/DIAG INJ SC/IM CPT-4: 26836 09/02/2018 THER/PROPH/DIAG INJ SC/IM CPT-4: 05741 08/21/2018 THER/PROPH/DIAG INJ SC/IM CPT-4: 98966 08/08/2018 THER/PROPH/DIAG INJ SC/IM CPT-4: 12159 07/28/2018 THER/PROPH/DIAG INJ SC/IM CPT-4: 63651 07/16/2018 THER/PROPH/DIAG INJ SC/IM CPT-4: 68402 07/02/2018 PPPS, SUBSEQ VISIT CPT- 4: G0439 06/30/2018 THER/PROPH/DIAG INJ SC/IM CPT-4: 62781 06/24/2018 THER/PROPH/DIAG INJ SC/IM CPT-4: 97677 06/13/2018 ADMIN INFLUENZA VIRU S VAC CPT-4: G0008 06/06/2018 FLU VACC PRSV FREE I NC ANTIG CPT-4: 67663 06/06/2018 THER/PROPH/DIAG INJ SC/IM CPT-4: 00699 06/05/2018 THER/PROPH/DIAG INJ SC/IM CPT-4: 64904 05/30/2018 THER/PROPH/DIAG INJ SC/IM CPT-4: 56076 05/22/2018 THER/PROPH/DIAG INJ SC/IM CPT-4: 85375 05/12/2018 THER/PROPH/DIAG INJ SC/IM CPT-4: 52866 05/02/2018 THER/PROPH/DIAG INJ SC/IM CPT-4: 24904 04/24/2018 THER/PROPH/DIAG INJ SC/IM CPT-4: 36960 04/17/2018 KETOROLAC TROMETHAMI NE INJ CPT-4: J1885 03/07/2018 URINALYSIS NONAUTO W /O SCOPE CPT-4: 62897 03/07/2018 THER/PROPH/DIAG INJ SC/IM CPT-4: 06555 02/20/2018 TRIAMCINOLONE ACET I [place] NOS CPT-4: J3301 01/30/2018 THER/PROPH/DIAG INJ SC/IM CPT-4: 73597 01/17/2018 TOBACCO-USE SENIOR HR GENERALIST 3-[address]: [id number] CPT-4: G0436 04/25/2017 ADMIN INFLUENZA VIRU S VAC CPT-4: G0008 04/25/2017 ADMIN PNEUMOCOCCAL V ACCINE SNOMED CT: 94736254 CPT-4: G0009 04/25/2017 PNEUMOCOCCAL VACC [address]: 17244762 CPT-4: 91779 04/25/2017 FLU VACC PRSV FREE I NC ANTIG CPT-4: 09289 04/25/2017 ADMIN INFLUENZA VIRU S VAC CPT-4: G0008 05/22/2016 FLU VACC 4 TELLY 3 YRS PLUS IM Formatting Model/CDA Sections, Assigned to/Angela Clemons SNOMED CT: 07692774 CPT-4: 74578Lkchwjf 05/22/2016 TOBACCO-USE SENIOR HR GENERALIST 3-[address]: 515571751 CPT-4: G0436 11/25/2015 URINALYSIS NONAUTO W /O SCOPE CPT-4: 12609 05/09/2015 TRIAMCINOLONE ACET I [place] NOS CPT-4: J3301 04/12/2015 DESTRUCT PREMALG LESION CPT-4: 16044 03/07/2015 DESTRUCT PREMALG LES 2-14 CPT-4: 99262 03/07/2015 REMOVE IMPACTED EAR WAX UNI CPT-4: 61248 12/31/2014 THER/PROPH/DIAG INJ SC/IM CPT-4: 61617 12/23/2014 TRIAMCINOLONE ACET I [place] NOS CPT-4: J3301 12/23/2014 Vital Signs Date Vital 12/02/2018 Blood Pressure 1: 140/70 Code: 8480-6 BMI: 21.9 Code: 13810-9 Heart Rate 1: 61 bpm Height: 5'11" SpO2: 94% Weight: 157 lbs 10/17/2018 Blood Pressure 1: 124/54 Code: 8480-6 BMI: 21.9 Code: 55646-9 Heart Rate 1: 64 bpm Height: 5'11" SpO2: 93% Weight: 157 lbs 09/02/2018 Blood Pressure 1: 140/80 Code: 8480-6 BMI: 21.2 Code: 96040-7 Heart Rate 1: 68 bpm Height: 5'11" SpO2: 97% Weight: 152 lbs 06/30/2018 BMI: 21.8 Code: 57694-3 Height: 5'11" Weight: 156 lbs 06/06/2018 Blood Pressure 1: 128/76 Code: 8480-6 BMI: 22.0 Code: 42899-6 Heart Rate 1: 81 bpm Height: 5'11" SpO2: 92% Weight: 158 lbs 04/04/2018 Blood Pressure 1: 124/70 Code: 8480-6 BMI: 20.8 Code: 12576-9 Heart Rate 1: 65 bpm Height: 5'11" SpO2: 95% Weight: 149 lbs 03/07/2018 Blood Pressure 1: 148/70 Code: 8480-6 BMI: 21.2 Code: 80937-1 Heart Rate 1: 66 bpm Height: 5'11" SpO2: 94% Weight: 152 lbs 02/20/2018 Blood Pressure 1: 134/58 Code: 8480-6 BMI: 20.5 Code: 29384-3 Heart Rate 1: 61 bpm Height: 5'11" SpO2: 92% Weight: 147 lbs 01/30/2018 Blood Pressure 1: 158/68 Code: 8480-6 BMI: 21.5 Code: 07598-0 Heart Rate 1: 71 bpm Height: 5'11" SpO2: 92% Weight: 154 lbs 01/14/2018 Blood Pressure 1: 156/70 Code: 8480-6 Height: Weight: 01/13/2018 Blood Pressure 1: 148/62 Code: 8480-6 BMI: 20.9 Code: 95562-2 Heart Rate 1: 54 bpm Height: 5'11" SpO2: 97% Weight: 150 lbs 11/19/2017 Blood Pressure 1: 150/60 Code: 8480-6 BMI: 21.8 Code: 13089-3 Heart Rate 1: 63 bpm Height: 5'11" SpO2: 98% Weight: 156 lbs 10/02/2017 Blood Pressure 1: 168/60 Code: 8480-6 BMI: 21.9 Code: 56905-4 Heart Rate 1: 52 bpm Height: 5'11" SpO2: 97% Weight: 157 lbs 07/23/2017 Blood Pressure 1: 170/70 Code: 8480-6 BMI: 21.8 Code: 88151-3 Heart Rate 1: 65 bpm Height: 5'11" SpO2: 98% Weight: 156 lbs 04/25/2017 Blood Pressure 1: 138/60 Code: 8480-6 BMI: 21.6 Code: 11401-6 Heart Rate 1: 55 bpm Height: 5'11" SpO2: 93% Weight: 155 lbs 02/19/2017 Blood Pressure 1: 138/64 Code: 8480-6 BMI: 21.3 Code: 12692-5 Heart Rate 1: 52 bpm Height: 5'11" SpO2: 96% Weight: 152 lbs 8 oz 01/21/2017 Blood Pressure 1: 160/68 Code: 8480-6 BMI: 21.3 Code: 20960-0 Heart Rate 1: 62 bpm Height: 5'11" SpO2: 96% Weight: 153 lbs 12/20/2016 Blood Pressure 1: 124/66 Code: 8480-6 BMI: 21.5 Code: 79833-5 Height: 5'11" Weight: 154 lbs 08/23/2016 Blood Pressure 1: 142/52 Code: 8480-6 BMI: 21.2 Code: 20891-5 Heart Rate 1: 54 bpm Height: 5'11" SpO2: 96% Weight: 152 lbs 05/22/2016 Blood Pressure 1: 130/76 Code: 8480-6 BMI: 21.5 Code: 68805-2 Heart Rate 1: 78 bpm Height: 5'11" SpO2: 92% Weight: 154 lbs 02/24/2016 Blood Pressure 1: 128/80 Code: 8480-6 BMI: 21.2 Code: 81653-1 Heart Rate 1: 74 bpm Height: 5'11" SpO2: 96% Weight: 152 lbs 01/27/2016 Blood Pressure 1: 144/60 Code: 8480-6 BMI: 21.2 Code: 47085-8 Heart Rate 1: 74 bpm Height: 5'11" SpO2: 97% Weight: 152 lbs 11/25/2015 Blood Pressure 1: 110/52 Code: 8480-6 BMI: 21.9 Code: 37684-1 Heart Rate 1: 65 bpm Height: 5'11" SpO2: 92% Weight: 157 lbs 07/28/2015 Blood Pressure 1: 138/62 Code: 8480-6 BMI: 21.8 Code: 88984-1 Heart Rate 1: 63 bpm Height: 5'11" SpO2: 91% Weight: 156 lbs 05/26/2015 Blood Pressure 1: 120/58 Code: 8480-6 BMI: 21.5 Code: 27317-8 Heart Rate 1: 99 bpm Height: 5'11" SpO2: 96% Weight: 154 lbs 05/06/2015 Blood Pressure 1: 120/58 Code: 8480-6 BMI: 21.2 Code: 15104-5 Heart Rate 1: 66 bpm Height: 5'11" SpO2: 96% Weight: 152 lbs 04/25/2015 Blood Pressure 1: 136/62 Code: 8480-6 BMI: 21.2 Code: 32502-3 Heart Rate 1: 63 bpm Height: 5'11" SpO2: 97% Weight: 152 lbs 04/12/2015 Blood Pressure 1: 160/58 Code: 8480-6 BMI: 21.6 Code: 50950-0 Heart Rate 1: 62 bpm Height: 5'11" Weight: 155 lbs 03/24/2015 Blood Pressure 1: 138/68 Code: 8480-6 BMI: 22.0 Code: 17396-5 Heart Rate 1: 65 bpm Height: 5'11" SpO2: 96% Weight: 158 lbs 03/07/2015 Blood Pressure 1: 116/52 Code: 8480-6 BMI: 22.2 Code: 00978-4 Heart Rate 1: 64 bpm Height: 5'11" SpO2: 97% Weight: 159 lbs 02/17/2015 Blood Pressure 1: 148/58 Code: 8480-6 BMI: 21.3 Code: 57761-8 Heart Rate 1: 63 bpm Height: 5'11" SpO2: 97% Weight: 153 lbs 12/31/2014 Blood Pressure 1: 100/60 Code: 8480-6 BMI: 21.8 Code: 54092-2 Heart Rate 1: 68 bpm Height: 5'11" Weight: 156 lbs 12/23/2014 Blood Pressure 1: 148/64 Code: 8480-6 BMI: 21.9 Code: 53013-9 Heart Rate 1: 64 bpm Height: 5'11" [...] Encounters Encounter Performer Loca tion Codes Date ([id number]) 68065 EST. 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 P ATIENT, LEVEL III Diagnosis: Orthostatic hypotension[ICD10: I95.1] Diagnosis: Low back pain[ICD10: M54.5] Diagnosis: Unsteadiness on feet[ICD10: R26.81] Karmen Ash MD, [facility] CPT-4: 61051 10/17/2018 ([id number]) 73240 EST. 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 P ATIENT, LEVEL IV Diagnosis: Cellulitis of face[ICD10: L03.211] Diagnosis: Type 2 diabetes mellitus without complications[ICD10: E11.9] Diagnosis: Essential (primary) hypertension[ICD10: I10] Diagnosis: Encounter for immunization[ICD10: Z23] Karmen Ash MD, [facility] CPT-4: 23845 06/06/2018 ([id number]) 04323 EST. 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 P ATIENT, LEVEL III Diagnosis: Low back pain[ICD10: M54.5] Diagnosis: Dysuria[ICD10: R30.0] Karmen Ash MD, [facility] CPT-4: 26638 03/07/2018 ([id number]) 89767 EST. 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 P ATIENT, LEVEL III Diagnosis: Chronic obstructive pulmonary disease with (acute) exacerbation[ICD10: J44.1] Karmen Ash MD, [facility] CPT-4: 77910 01/30/2018 94186 EST. PATIENT, LEVEL II Diagnosis: Insect bite (nonvenomous), left lower leg, initial encounter[ICD10: S80.862A] Karmen Ash MD, [facility] CPT-4: 09403 01/14/2018 ([id number]) 28809 EST. P ATIENT, LEVEL IV Diagnosis: Type 2 diabetes mellitus with hyperglycemia[ICD10: E11.65] Diagnosis: Chronic obstructive pulmonary disease, unspecified[ICD10: J44.9] Diagnosis: Other fatigue[ICD10: R53.83] Karmen Ash MD, [facility] CPT- 4: 35243 01/13/2018 ([id number]) 66701 EST. P ATIENT, LEVEL IV Diagnosis: Type 2 diabetes mellitus with hyperglycemia[ICD10: E11.65] Diagnosis: Vitamin D deficiency, unspecified[ICD10: E55.9] Diagnosis: Essential (primary) hypertension[ICD10: I10] Diagnosis: Abdominal distension (gaseous)[ICD10: R14.0] Diagnosis: Drug induced constipation[ICD10: K59.03] Karmen Ash MD, [facility] CPT-4: 21988 11/19/2017 10008 EST. PATIENT, LEVEL IV Diagnosis: Low back pain[ICD10: M54.5] Diagnosis: Chronic obstructive pulmonary disease, unspecified[ICD10: J44.9] Brunilda Ash MD, [facility] CPT-4: 06889 10/02/2017 ([id number]) 25791 EST. P ATIENT, LEVEL IV Diagnosis: Essential (primary) hypertension[ICD10: I10] Diagnosis: Type 2 diabetes mellitus with hyperglycemia[ICD10: E11.65] Diagnosis: Vitamin D deficiency, unspecified[ICD10: E55.9] Diagnosis: Mixed hyperlipidemia[ICD10: E78.2] Karmen Ash MD, [facility] CPT-4: 11776 07/23/2017 ([id number]) 00343 EST. P ATIENT, LEVEL IV Diagnosis: Essential (primary) hypertension[ICD10: I10] Diagnosis: Type 2 diabetes mellitus with hyperglycemia[ICD10: E11.65] Diagnosis: Chronic obstructive pulmonary disease, unspecified[ICD10: J44.9] Diagnosis: Nicotine dependence, unspecified, uncomplicated[ICD10: F17.200] Diagnosis: Encounter for immunization[ICD10: Z23] Karmen Ash MD, [facility] CPT-4: 74723 04/25/2017 ([id number]) 31969 EST. P ATIENT, LEVEL IV Diagnosis: Type 2 diabetes mellitus with hyperglycemia[ICD10: E11.65] Diagnosis: Essential (primary) hypertension[ICD10: I10] Diagnosis: Anemia, unspecified[ICD10: D64.9] Karmen Ash MD, [facility] CPT- 4: 50890 02/19/2017 ([id number]) 24562 EST. P ATIENT, LEVEL IV Diagnosis: Slow transit constipation[ICD10: K59.01] Diagnosis: Gastro-esophageal reflux disease without esophagitis[ICD10: K21.9] Diagnosis: Essential (primary) hypertension[ICD10: I10] Karmen Ash MD, [facility] CPT-4: 27169 01/21/2017 ([id number]) 91962 EST. P ATIENT, LEVEL IV Diagnosis: Type 2 diabetes mellitus with hyperglycemia[ICD10: E11.65] Diagnosis: Vitamin D deficiency, unspecified[ICD10: E55.9] Diagnosis: Essential (primary) hypertension[ICD10: I10] Diagnosis: Chronic obstructive pulmonary disease, unspecified[ICD10: J44.9] Karmen Ash MD, [facility] CPT-4: 72667 12/20/2016 ([id number]) 92327 EST. P ATIENT, LEVEL IV Diagnosis: Type 2 diabetes mellitus with hyperglycemia[ICD10: E11.65] Diagnosis: Essential (primary) hypertension[ICD10: I10] Diagnosis: Mixed hyperlipidemia[ICD10: E78.2] Diagnosis: Vitamin D deficiency, unspecified[ICD10: E55.9] Karmen Ash MD, [facility] CPT-4: 16430 08/23/2016 ([id number]) 87818 EST. P ATIENT, LEVEL IV Diagnosis: Type 2 diabetes mellitus with hyperglycemia[ICD10: E11.65] Diagnosis: Essential (primary) hypertension[ICD10: I10] Diagnosis: Chronic obstructive pulmonary disease, unspecified[ICD10: J44.9] Karmen Ash MD, [facility] CPT-4: 77505 05/22/2016 ([id number]) 29312 EST. P ATIENT, LEVEL III Diagnosis: Dysuria[ICD10: R30.0] Diagnosis: Essential (primary) hypertension[ICD10: I10] Karmen Ash MD, [facility] CPT-4: 67619 02/24/2016 ([id number]) 74498 EST. P ATIENT, LEVEL IV Diagnosis: Gastro-esophageal reflux disease without esophagitis[ICD10: K21.9] Diagnosis: Slow transit constipation[ICD10: K59.01] Diagnosis: Type 2 diabetes mellitus with hyperglycemia[ICD10: E11.65] Karmen Ash MD, [facility] CPT-4: 98169 01/27/2016 ([id number]) 70222 EST. P ATIENT, LEVEL IV Diagnosis: Essential (primary) hypertension[ICD10: I10] Diagnosis: Type 2 diabetes mellitus with hyperglycemia[ICD10: E11.65] Diagnosis: Vitamin D deficiency, unspecified[ICD10: E55.9] Diagnosis: Chronic obstructive pulmonary disease, unspecified[ICD10: J44.9] Diagnosis: Mixed hyperlipidemia[ICD10: E78.2] Diagnosis: Tobacco use[ICD10: Z72.0] Karmen Ash MD, [facility] CPT- 4: 45686 11/25/2015 ([id number]) 16742 EST. P ATIENT, LEVEL IV Diagnosis: Type 2 diabetes mellitus with hyperglycemia[ICD10: E11.65] Diagnosis: Essential (primary) hypertension[ICD10: I10] Diagnosis: Vitamin D deficiency, unspecified[ICD10: E55.9] [facility] CPT-4: 19834 07/28/2015 ([id number]) 74286 EST. P ATIENT, LEVEL III Diagnosis: Type 2 diabetes mellitus with hyperglycemia[ICD10: E11.65] Diagnosis: Essential (primary) hypertension[ICD10: I10] Violeta Ash MD, [facility] CPT-4: 98421 05/26/2015 ([id number]) 99833 EST. P ATIENT, LEVEL III Diagnosis: DIABETES TYPE II[ICD9: 250.00] Diagnosis: COPD (chronic obstructive pulmonary disease)[ICD9: 496] Diagnosis: ESSENTIAL HYPERTENSION[ICD9: 401.9] Diagnosis: Cough[ICD9: 786.2] Violeta Ash MD, [facility] CPT-4: 51027 05/06/2015 ([id number]) 40013 EST. P ATIENT, LEVEL III Diagnosis: COPD (chronic obstructive pulmonary disease)[ICD9: 496] Diagnosis: DIABETES TYPE II[ICD9: 250.00] Diagnosis: Muscle ache[ICD9: 729.1] [facility] CPT- 4: 71003 04/25/2015 ([id number]) 23582 EST. P ATIENT, LEVEL III Diagnosis: ACTINIC KERATOSIS[ICD9: 702.0] Diagnosis: COPD (chronic obstructive pulmonary disease)[ICD9: 496] Diagnosis: DIABETES TYPE II[ICD9: 250.00] Diagnosis: ACUTE URI[ICD9: 465.9] [facility] CPT-4: 01886 04/12/2015 ([id number]) 98885 EST. P ATIENT, LEVEL III Diagnosis: DIABETES TYPE II[ICD9: 250.00] Violeta Ash MD, [facility] CPT-4: 21885 03/24/2015 ([id number]) 32328 EST. P ATIENT, LEVEL IV Diagnosis: DIABETES TYPE II[ICD9: 250.00] Diagnosis: Hypoglycemia[ICD9: 251.2] Diagnosis: Skin texture changes[ICD9: 782.8] Violeta Ash MD, [facility] CPT-4: 09088 03/07/2015 ([id number]) 71308 EST. P ATIENT, LEVEL IV Diagnosis: COPD (chronic obstructive pulmonary disease)[ICD9: 496] Diagnosis: Fatigue[ICD9: 780.79] Diagnosis: Insulin dependent diabetes mellitus[ICD9: 250.00] Diagnosis: Unsteady gait[ICD9: 781.2] Maame Ash MD, [facility] CPT-4: 42760 02/17/2015 ([id number]) 29122 EST. P ATIENT, LEVEL IV Diagnosis: BPPV (benign paroxysmal positional vertigo)[ICD9: 386.11] Diagnosis: Impacted cerumen[ICD9: 380.4] Diagnosis: ESSENTIAL HYPERTENSION[ICD9: 401.9] Diagnosis: Insulin dependent diabetes mellitus[ICD9: 250.00] Karmen Ash MD, [facility] CPT-4: 10908 12/23/2014 ([id number]) [facility] LEVEL 4 Diagnosis: Insulin dependent diabetes mellitus[ICD9: 250.00] Diagnosis: BPPV (benign paroxysmal positional vertigo)[ICD9: 386.11] Diagnosis: COPD (chronic obstructive pulmonary disease)[ICD9: 496] Diagnosis: Tobacco abuse[ICD9: 305.1] Diagnosis: Osteoarthritis[ICD9: 715.90] Karmen Ash MD, [facility] CPT- 4: 43428 12/09/2014 Plan of Care Planned Activity Notes C odes Status Date Patient Education: Patient Medication Summary Completed 01/16/2019 [...] directed 12/02/2018 Appointment: Karmen Espinal WPtel: [phone] [phone] (30 min) Complex 12/02/2018 Patient Education: Patient Medication Summary Completed 12/02/2018 Patient Education: Diabetes Completed 12/02/2018 Appointment: Injection 11/18/2018 Patient Education: Patient Medication Summary Completed 11/18/2018 Appointment: Injection 11/04/2018 Patient Education: Patient Medication Summary Completed 11/04/2018 Appointment: Karmen Espinal WPtel: [phone] (30 min) Complex 10/21/2018 Visit Plan: Orthostatic [...] walker 10/17/2018 Appointment: Karmen Espinal WPtel: [phone] [phone] (30 min) Complex 10/17/2018 Patient Education: Patient [...] to medications. 09/02/2018 Appointment: Karmen Espinal WPtel: [facility] [phone] (15 min) Moderate 09/02/2018 Patient Education: Patient [...] surrogate. 06/30/2018 Appointment: Karmen Espinal WPtel: [phone] [phone] [facility] - Annual Wellness Visit [...] in pain. 06/06/2018 Appointment: [facility] Espinal [facility]: [phone] [phone] (15 min) Moderate 06/06/2018 Patient Education: Patient [...] months 04/04/2018 Appointment: [facility]inal [facility]: [phone] [phone] [place] (15 min) Moderate 04/04/2018 Patient Education: Patient Medication Summary Completed 04/04/2018 Care Plan: Cbc With Differential Pending 04/04/2018 Care Plan: Testosterone repeat in 2 months Pending 04/04/2018 Appointment: [facility]inal [phone] [facility] [phone] [place] (15 min) Moderate 03/25/2018 Visit Plan: Low back pain -history of kidney stone-UA negative today -increase fluids and call if pain does not resolve or if any worse. 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 01/30/2018 Appointment: Karmen Espinal WPtel: [facility]2 [facility] [place] [address] (15 min) Moderate 01/30/2018 Patient Education: Patient Medication Summary Completed 01/30/2018 Appointment: Karmen Espinal WPtel: [facility]7 [phone] (15 min) Moderate 01/28/2018 Appointment: Injection 01/17/2018 Patient Education: Patient Medication Summary Completed 01/17/2018 Visit Plan: Cellulitis - start oral antibiotics as directed, return to clinic as previously directed, call for acute change in symptoms, worsening redness, warmth, discharge. 01/14/2018 Appointment: Karmen Espinal WPtel: [facility]9 [phone] (10 min) Simple 01/14/2018 Patient Education: Patient [...] controlled. 01/13/2018 Appointment: Karmen Espinal WPtel: [phone] [phone] (15 min) Moderate 01/13/2018 Patient Education: Patient Medication Summary Completed 01/13/2018 [phone]6[address] Patient's informed. Referral info ned monroy. Completed [...] change in blood pressure readings at home. Lzfyqxpd-mbucbx-uceak to see Dr Villatoro Constipation-start linzess daily 11/19/2017 Appointment: Karmen Espinal WPtel: [facility]8 [phone] (30 min) Complex 11/19/2017 Patient Education: Patient Medication Summary Completed 11/19/2017 Care Plan: Referral Order bloating, nausea SNOMED-CT : [id number] Pending 11/19/2017 Visit Plan: Low back pain- [...] acute changes. 10/02/2017 Appointment: Brunilda Maravilla WPtel: [address] [place], [place] [phone] (15 min) Moderate 10/02/2017 Patient Education: Patient [...] controlled. 07/23/2017 Appointment: [facility] Espinal [facility]Ptel: [phone] [facility] [phone] (30 min) Complex 07/23/2017 Patient Education: Patient [...] history 04/25/2017 Appointment: [facility] Espinal [facility]Pt[facility]: [phone] [phone] (30 min) Complex 04/25/2017 Patient Education: Patient [...] readings are starting to become less controlled. Jhouha-iblxskt-cxyeo labs 02/19/2017 Appointment: Karmen Espinal WPtel: [facility]5 [phone] (30 min) Complex 02/19/2017 Patient Education: Patient [...] 1 month 01/21/2017 Appointment: Karmen Espinal WPtel: [facility] [phone] (30 min) Complex 01/21/2017 Patient Education: Patient Medication Summary Completed 01/21/2017 Patient Education: Smoking and Tobacco Addiction Completed 01/21/2017 Patient Education: Hypertension Completed 01/21/2017 Care Plan: Referral Order SNOMED-CT : [id number] Pending 01/21/2017 Visit Plan: Diabetes Mellitus - [...] changes. 12/20/2016 Appointment: Karmen Espinal WPtel: [phone] [phone] (30 min) Complex 12/20/2016 Patient Education: Patient Medication Summary Completed 12/20/2016 Patient Education: Smoking and Tobacco Addiction Completed 12/20/2016 Patient Education: Hypertension Completed 12/20/2016 Appointment: Karmen Espinal WPtel: [phone] [phone] (30 min) Complex 09/06/2016 Visit Plan: Diabetes [...] level 08/23/2016 Appointment: Karmen Espinal WPtel: [phone] [phone] (30 min) Complex 08/23/2016 Patient Education: Patient [...] acute changes. 05/22/2016 Appointment: Karmen Espinal WPtel: [facility] [phone] (30 min) Complex 05/22/2016 Patient Education: Patient Medication Summary Completed 05/22/2016 Patient Education: Smoking and Tobacco Addiction Completed 05/22/2016 Care Plan: Cbc With Differential Ordered 05/22/2016 Care Plan: %Hba1C LOIN C : 31588-2 Ordered 05/22/2016 Care Plan: Tsh Ordered 05/22/2016 [...] with update 02/24/2016 Appointment: Karmen Espinal WPtel: [facility] [phone] (30 min) Complex 02/24/2016 Patient Education: Patient [...] this regimen. 01/27/2016 Appointment: Karmen Espinal WPtel: [address] [place], [place] [phone] (30 min) Complex 01/27/2016 Patient Education: Patient [...] use medication to assist cessation. 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 Mmicxpys-esvmwgwy-ZSBW SIMVASTATIN X 2 WEEKS AND CALL WITH [...] Completed 03/24/2015 Care Plan: COMPLETE CBC AUTOMATED [facility] : 36488-6 Ordered 03/24/2015 Visit Plan: Diabetes Mellitus - [...] for removal. 03/07/2015 Appointment: Violeta Ash WPtel: [facility] (15 min) Moderate 03/07/2015 Patient Education: Patient [...] Care Plan: COMPLETE CBC AUTOMATED LOINC : 74725-9 Ordered 12/23/2014 Visit Plan: BPPV - Benign [...] appt 12/09/2014 Appointment: Karmen Espinal WPtel: [phone] [phone] [place] ([place]) New Patient 12/09/2014 Patient Education: Patient Medication Summary Completed 12/09/2014 Patient Education: .Amazing charts Parox ysmal positional vertigo Completed 12/09/2014 Patient Education: Smoking and Tobacco Addiction Completed 12/09/2014 Referral: Hugo Villatoro HPtel:[phone] [facility] [place] Referral Appointment Requested Referral: Luis Donohue [...] readings are starting to become less controlled. Gttzqv-plfrzro-owfah labs . Cellulitis - start oral antibiotics [...] change in blood pressure readings at home. Sodwqadc-rvvhtw-wrhtx to see Dr Villatoro Constipation-start linzess daily [...] POTENTIAL SIDE EFFECTS AND WORSENING OF SYMPTOMS. Hfwraamg-psufxnnu-MGNH SIMVASTATIN X 2 WEEKS AND CALL WITH [...]
--- OUTSIDE RECORDS SUMMARY | 2020-03-29 08:04 | XMS REPORT | CCD ---
Author Author Dick Espinal Organization [facility] Address [address] [place] [address] Phone Care Team Providers Care Leather Dresser Name Role Phone PP Unavailable CCM Unavailable Summary Purpose Interface Exchange Insurance Providers Payer name Policy type / Coverage type Covered green party ID Effective Begin Date Effective End Date WPS Medicare Part B Medicare Part B [id number] Unknown Unknown [employer] Medicar e Part B [id number] Unknown Unkn own Family history Father Diagnosis Age At Onset Cancer Unknown Mother Diagnosis Age At Onset Cancer Unknown Social History Social History Element Codes Description Effective Dates Marital status Unknown M arried 12/09/2014 Employment Unknown Retir ed 12/09/[address]: 17645284 Currently smokes tobacco 12/09/2014 Number of years using tobacco Unknown > 50 12/09/2014 Number of cigarettes/day Unknown 30 (Pack and a half) 12/09/[address]: 894555128 Never drinks alcohol 12/09/2014 Allergies, Adverse Reactions, [...] cypiona te 200 mg/mL intramuscular oil RxNorm: 9728657 1/2 Milliliter(s) IM [id number] 01/16/2019 05/15/2019 Active hydrocodone 5 mg-linh taminophen 325 mg tablet RxNorm: 642206 1 Tablet(s) PO Q6-8H as needed 01/14/2019 02/07/2019 Active testosterone cypiona te 200 mg/mL intramuscular oil RxNorm: 9463778 Milliliter(s) IM 01/01/2019 01/01/2019 In active Xanax 0.5 mg tablet RxNorm: 915658 1 Tablet(s) PO TID 12/18/2018 02/15/2019 Active testosterone cypiona te 200 mg/mL intramuscular oil RxNorm: 0668211 Milliliter(s) IM 12/17/2018 12/17/2018 In active hydrocodone 5 mg-linh taminophen 325 mg tablet RxNorm: 689321 1 Tablet(s) PO Q6-8H as needed 12/15/2018 01/08/2019 Inactive testosterone cypiona te 200 mg/mL intramuscular oil RxNorm: 2747049 Milliliter(s) IM 12/02/2018 12/02/2018 In active testosterone cypiona te 200 mg/mL intramuscular oil RxNorm: 5908631 Milliliter(s) IM 11/18/2018 11/18/2018 In active hydrocodone 5 mg-linh taminophen 325 mg tablet RxNorm: 473771 1 Tablet(s) PO Q6-8H as needed 11/13/2018 12/07/2018 Inactive testosterone cypiona te 200 mg/mL intramuscular oil RxNorm: 6109800 1/2 Milliliter(s) IM [id number] 11/04/2018 01/15/2019 Inactive testosterone cypiona te 200 mg/mL intramuscular oil RxNorm: 2782065 Milliliter(s) IM 11/04/2018 11/04/2018 In active nicotine 21 mg/24 hr daily transdermal patch RxNorm: 143390 1 TD daily 10/31/2018 10/30/2018 In active nicotine 21 mg/24 hr daily transdermal patch RxNorm: 500985 1 TD daily 10/31/2018 11/29/2018 In active meclizine 25 mg tablet RxNorm: 827016 1 Tablet(s) PO Q6 PRN TAKE ONE TABLET BY MOUTH EVERY 6 HOURS NEEDED 10/17/2018 01/14/2019 Inactive hydrocodone 5 mg-linh taminophen 325 mg tablet RxNorm: 306945 1 Tablet(s) PO Q6-8H as needed 10/17/2018 11/10/2018 Inactive metformin 500 mg tablet RxNorm: 317125 Tablet(s) TAKE 1 TABLET BY MOUTH DAILY 10/15/2018 10/09/2019 Ac tive lisinopril 10 mg tablet RxNorm: 086986 TAKE 1 TABLET BY MOUTH TWO TIMES DAILY 10/15/2018 10/09/2019 Ac tive - First Attempt Ref: [id number] testosterone cypiona te 200 mg/mL intramuscular oil RxNorm: 5438451 Milliliter(s) IM 10/14/2018 10/14/2018 In active Xanax 0.5 mg tablet RxNorm: 157298 1 Tablet(s) PO TID 10/03/2018 11/30/2018 Inactive testosterone cypiona te 200 mg/mL intramuscular oil RxNorm: 6097500 1/2 Milliliter(s) IM weekly 10/03/2018 11/03/2018 Inactive testosterone cypiona te 200 mg/mL intramuscular oil RxNorm: 2450865 Milliliter(s) IM 10/03/2018 10/03/2018 In active testosterone cypiona te 200 mg/mL intramuscular oil RxNorm: 9248689 Milliliter(s) IM 09/23/2018 09/23/2018 In active hydrocodone 5 mg-linh taminophen 325 mg tablet RxNorm: 309386 1 Tablet(s) PO Q6-8H as needed 09/22/2018 10/16/2018 Inactive testosterone cypiona te 200 mg/mL intramuscular oil RxNorm: 5092294 1/2 Milliliter(s) IM 09/02/2018 09/02/2018 Inactive testosterone enantha te 200 mg/mL intramuscular oil RxNorm: 863925 Milliliter(s) IM 08/21/2018 08/21/2018 In active hydrocodone 5 mg-linh taminophen 325 mg tablet RxNorm: 276664 1 Tablet(s) PO Q6-8H as needed 08/21/2018 09/14/2018 Inactive testosterone cypiona te 200 mg/mL intramuscular oil RxNorm: 7104607 Milliliter(s) IM 08/08/2018 08/08/2018 In active testosterone cypiona te 200 mg/mL intramuscular oil RxNorm: 0837838 1/2 Milliliter(s) IM 07/28/2018 07/28/2018 Inactive hydrocodone 5 mg-linh taminophen 325 mg tablet RxNorm: 038273 1 Tablet(s) PO Q6-8H as needed 07/21/2018 08/14/2018 Inactive testosterone cypiona te 200 mg/mL intramuscular oil RxNorm: 515379 Milliliter(s) IM 07/16/2018 07/16/2018 In active testosterone cypiona te 200 mg/mL intramuscular oil RxNorm: 414079 Milliliter(s) IM 07/02/2018 07/02/2018 In active Xanax 0.5 mg tablet RxNorm: 051690 1 Tablet(s) PO TID 06/27/2018 08/24/2018 Inactive testosterone cypiona te 200 mg/mL intramuscular oil RxNorm: 797082 Milliliter(s) IM 06/24/2018 06/24/2018 In active hydrocodone 5 mg-linh taminophen 325 mg tablet RxNorm: 546771 1 Tablet(s) PO Q6-8H as needed 06/23/2018 07/17/2018 Inactive testosterone cypiona te 200 mg/mL intramuscular oil RxNorm: 128485 Milliliter(s) IM 06/13/2018 06/13/2018 In active testosterone cypiona te 200 mg/mL intramuscular oil RxNorm: 137688 Milliliter(s) IM 06/05/2018 06/05/2018 In active testosterone cypiona te 200 mg/mL intramuscular oil RxNorm: 7734529 1/2 Milliliter(s) IM weekly 05/30/2018 09/26/2018 Inactive testosterone cypiona te 200 mg/mL intramuscular oil RxNorm: 168449 Milliliter(s) IM 05/30/2018 05/30/2018 In active testosterone cypiona te 200 mg/mL intramuscular oil RxNorm: 469378 Milliliter(s) IM 05/22/2018 05/22/2018 In active hydrocodone 5 mg-linh taminophen 325 mg tablet RxNorm: 997181 1 Tablet(s) PO Q6-8H as needed 05/20/2018 06/13/2018 Inactive testosterone cypiona te 200 mg/mL intramuscular oil RxNorm: 917490 1/2 Milliliter(s) IM 05/12/2018 05/12/2018 Inactive testosterone cypiona te 200 mg/mL intramuscular oil RxNorm: 098957 Milliliter(s) IM 05/02/2018 05/02/2018 In active testosterone cypiona te 200 mg/mL intramuscular oil RxNorm: 967554 1/2 Milliliter(s) IM weekly 04/24/2018 05/29/2018 Inactive testosterone cypiona te 200 mg/mL intramuscular oil RxNorm: 758476 0.5 Milliliter(s) IM 04/24/2018 04/24/2018 Inactive hydrocodone 5 mg-linh taminophen 325 mg tablet RxNorm: 829999 1 Tablet(s) PO Q6-8H as needed 04/22/2018 05/16/2018 Inactive testosterone cypiona te 200 mg/mL intramuscular oil RxNorm: 471467 1/2 Milliliter(s) IM 04/17/2018 04/17/2018 Inactive testosterone cypiona te 200 mg/mL intramuscular oil RxNorm: 457584 1/2 Milliliter(s) IM weekly 04/16/2018 04/23/2018 Inactive Jardiance 10 mg tablet RxNorm: 1233875 1 Tablet(s) PO daily 04/04/2018 12/29/2018 Inactive Protonix 40 mg table t,delayed release RxNorm: 664507 1 Tablet(s) PO daily TAKE 1 TABLET BY MOUTH DAILY 04/04/2018 03/29/2019 Active - Ref: [id number] testosterone cypiona te 200 mg/mL intramuscular oil RxNorm: 154864 1 Milliliter(s) IM monthly 04/04/2018 04/15/2018 Inactive hydrocodone 5 mg-linh taminophen 325 mg tablet RxNorm: 483290 1 Tablet(s) PO Q6-8H as needed 03/19/2018 04/12/2018 Inactive Flomax 0.4 mg capsule RxNorm: 882289 1 Capsule(s) PO daily 03/10/2018 03/04/2019 Active Urecholine 25 mg tablet RxNorm: 887835 1 Tablet(s) PO BID 03/10/2018 07/07/2018 Inactive ketorolac 60 mg/2 mL intramuscular solution RxNorm: 3905390 Milliliter(s) IM 03/07/2018 03/07/2018 In active metformin 500 mg tablet RxNorm: 533745 Tablet(s) TAKE 1 TABLET BY MOUTH DAILY 02/20/2018 02/13/2019 Ac tive 1 q am and 1/2 tab q pm hydrocodone 5 mg-linh taminophen 325 mg tablet RxNorm: 378778 1 Tablet(s) PO Q6-8H as needed 02/20/2018 03/16/2018 Inactive Kenalog 40 mg/mL bartolome pension for injection RxNorm: 5197108 1.5 Milliliter(s) In j 01/30/2018 01/30/2018 In active hydrocodone 5 mg-linh taminophen 325 mg tablet RxNorm: 158867 1 Tablet(s) PO Q6-8H as needed 01/23/2018 02/16/2018 Inactive Urecholine 25 mg tablet RxNorm: 934154 1 Tablet(s) PO BID 01/22/2018 03/09/2018 Inactive Flomax 0.4 mg capsule RxNorm: 799341 1 Capsule(s) PO daily 01/22/2018 03/09/2018 Inactive Flomax 0.4 mg capsule RxNorm: 425054 1 Capsule(s) PO daily 01/22/2018 01/21/2018 Inactive Urecholine 25 mg tablet RxNorm: 757834 1 Tablet(s) PO BID 01/22/2018 01/21/2018 Inactive testosterone cypiona te 200 mg/mL intramuscular oil RxNorm: 526264 Milliliter(s) IM 01/17/2018 01/17/2018 In active testosterone cypiona te 200 mg/mL intramuscular oil RxNorm: 868836 1 Milliliter(s) IM monthly 01/17/2018 04/03/2018 Inactive doxycycline hyclate 100 mg tablet RxNorm: 375753 1 Tablet(s) PO BID 01/14/2018 01/23/2018 Inactive lisinopril 10 mg tablet RxNorm: 504546 TAKE 1 TABLET BY MOUTH TWO TIMES DAILY 01/14/2018 10/14/2018 In active - First Attempt Ref: [id number] nystatin 100,000 uni t/mL oral suspension RxNorm: 109354 4 Milliliter(s) PO QI D Swish and swallow 01/08/2018 01/07/2018 Inactive nystatin 100,000 uni t/mL oral suspension RxNorm: 486244 4 Milliliter(s) PO QI D Swish and swallow 01/08/2018 01/12/2018 Inactive Xanax 0.5 mg tablet RxNorm: 535606 1 Tablet(s) PO TID 01/08/2018 12/23/2018 Inactive simvastatin 40 mg ta blet RxNorm: 868860 TAKE 1 TABLET BY MOUT H DAILY AT BEDTIME 12/30/2017 12/24/2018 In active - First Attempt Ref: [id number] metformin 500 mg tablet RxNorm: 833689 TAKE 1 TABLET BY MOUTH DAILY 12/30/2017 02/19/2018 Inactive - First Attempt Ref: [id number] hydrocodone 5 mg-linh taminophen 325 mg tablet RxNorm: 395436 1 Tablet(s) PO Q6-8H as needed 12/25/2017 01/18/2018 Inactive Protonix 40 mg table t,delayed release RxNorm: 237183 Tablet(s) TAKE 1 TABL ET BY MOUTH DAILY 11/20/2017 04/03/2018 Inactive - Ref: [id number] Linzess 72 mcg capsule RxNorm: 8937872 1 Capsule(s) PO daily 11/19/2017 No Stop Date Active hydrocodone 5 mg-linh taminophen 325 mg tablet RxNorm: 202419 1 Tablet(s) PO Q6-8H as needed 11/19/2017 12/13/2017 Inactive hydrocodone 5 mg-ilnh taminophen 325 mg tablet RxNorm: 491320 1 Tablet(s) PO Q6-8H as needed 10/28/2017 11/18/2017 Inactive Xanax 0.5 mg tablet RxNorm: 888392 1 Tablet(s) PO TID 10/25/2017 12/22/2017 Inactive Xanax 0.5 mg tablet RxNorm: 141011 TAKE ONE TABLET BY MOUTH THREE TIMES A D AY 10/24/2017 12/01/2018 In active hydrocodone 5 mg-linh taminophen 325 mg tablet RxNorm: 205205 1 Tablet(s) PO Q6-8H as needed 09/30/2017 10/24/2017 Inactive Protonix 40 mg table t,delayed release RxNorm: 864719 TAKE 1 TABLET BY MOUT H DAILY 09/16/2017 11/19/2017 In active - Ref: [id number] Yovana WheeleroStar 300 unit/mL (1.5 mL) subcutaneous insulin pen RxNorm: 7493347 35 Unit(s) SQ QHS 08/30/2017 No Stop Date Active dosage increase hydrocodone 5 mg-linh taminophen 325 mg tablet RxNorm: 401528 1 Tablet(s) PO Q6-8H as needed 08/28/2017 09/29/2017 Inactive hydrocodone 5 mg-linh taminophen 325 mg tablet RxNorm: 806980 1 Tablet(s) PO Q6-8H as needed 07/23/2017 08/24/2017 Inactive lisinopril 10 mg tablet RxNorm: 308683 1 Tablet(s) PO BID Take 1 tablet by mout h daily 07/23/2017 01/13/2018 Inactive hydrocodone 5 mg-linh taminophen 325 mg tablet RxNorm: 143386 1 Tablet(s) PO Q6-8H as needed 06/27/2017 07/22/2017 Inactive Xanax 0.5 mg tablet RxNorm: 353078 1 Tablet(s) PO TID 06/18/2017 10/25/2017 Inactive hydrocodone 5 mg-linh taminophen 325 mg tablet RxNorm: 062080 1 Tablet(s) PO Q6-8H as needed 05/27/2017 06/26/2017 Inactive Levaquin 500 mg tablet RxNorm: 248194 1 Tablet(s) PO daily 05/24/2017 05/23/2017 Inactive Levaquin 500 mg tablet RxNorm: 467348 1 Tablet(s) PO daily 05/24/2017 05/30/2017 Inactive Protonix 40 mg table t,delayed release RxNorm: 970958 Take 1 tablet by mout h daily 04/29/2017 09/15/2017 In active - Ref: [id number] hydrocodone 5 mg-linh taminophen 325 mg tablet RxNorm: 033947 1 Tablet(s) PO Q6-8H as needed 04/25/2017 05/26/2017 Inactive metformin 500 mg tablet RxNorm: 684271 Take 1 tablet by mouth daily 04/08/2017 12/29/2017 Inactive - First Attempt Ref: [id number] hydrocodone 5 mg-linh taminophen 325 mg tablet RxNorm: 255558 1 Tablet(s) PO Q6-8H as needed 03/27/2017 04/24/2017 Inactive hydrocodone 5 mg-linh taminophen 325 mg tablet RxNorm: 089450 1 Tablet(s) PO Q6-8H as needed 02/25/2017 03/26/2017 Inactive Protonix 40 mg table t,delayed release RxNorm: 038935 Tablet(s) Take 1 tabl et by mouth BID 02/25/2017 04/28/2017 Inactive Protonix 40 mg table t,delayed release RxNorm: 474649 Tablet(s) Take 1 tabl et by mouth BID 02/19/2017 02/18/2017 Inactive Protonix 40 mg table t,delayed release RxNorm: 184143 Tablet(s) Take 1 tabl et by mouth BID 02/19/2017 02/24/2017 Inactive lisinopril 10 mg tablet RxNorm: 188520 Take 1 tablet by mouth daily 01/29/2017 07/22/2017 Inactive - First Attempt Ref: [id number] hydrocodone 5 mg-linh taminophen 325 mg tablet RxNorm: 224089 1 Tablet(s) PO Q6-8H as needed 01/25/2017 02/24/2017 Inactive simvastatin 40 mg ta blet RxNorm: 617693 Tablet(s) Take 1 tabl et by mouth daily at bedtime 01/03/2017 12/28/2017 Inactive lisinopril 10 mg tablet RxNorm: 677686 Tablet(s) Take 1 tablet by mouth daily 01/03/2017 01/28/2017 In active Protonix 40 mg table t,delayed release RxNorm: 183619 Tablet(s) Take 1 tabl et by mouth daily 12/28/2016 02/18/2017 Inactive hydrocodone 5 mg-linh taminophen 325 mg tablet RxNorm: 469272 1 Tablet(s) PO Q6-8H as needed 12/26/2016 01/24/2017 Inactive Xanax 0.5 mg tablet RxNorm: 023503 1 Tablet(s) PO TID 12/12/2016 03/11/2017 Inactive simvastatin 40 mg ta blet RxNorm: 218336 Tablet(s) Take 1 tabl et by mouth daily at bedtime 11/30/2016 01/02/2017 Inactive simvastatin 40 mg ta blet RxNorm: 227678 Take 1 tablet by mout h daily at bedtime 11/29/2016 11/29/2016 In active - First Attempt Ref: [id number] Protonix 40 mg table t,delayed release RxNorm: 608810 Take 1 tablet by mout h daily 11/27/2016 12/27/2016 In active - First Attempt Ref: [id number] hydrocodone 5 mg-linh taminophen 325 mg tablet RxNorm: 625291 1 Tablet(s) PO Q6-8H as needed 11/26/2016 12/25/2016 Inactive hydrocodone 5 mg-linh taminophen 325 mg tablet RxNorm: 486577 1 Tablet(s) PO Q8 as needed 10/24/2016 11/25/2016 Inactive Xanax 0.5 mg tablet RxNorm: 716026 1 Tablet(s) PO TID 10/09/2016 12/25/2016 Inactive hydrocodone 5 mg-linh taminophen 325 mg tablet RxNorm: 197633 1 Tablet(s) PO Q8 as needed 09/27/2016 10/23/2016 Inactive lisinopril 10 mg tablet RxNorm: 161383 Take 1 tablet by mouth daily 09/25/2016 01/02/2017 Inactive - First Attempt Ref: [id number] Vitamin D2 50,000 un it capsule RxNorm: 157359 1 Capsule(s) PO QW 09/06/2016 12/01/2018 Inactive hydrocodone 5 mg-linh taminophen 325 mg tablet RxNorm: 103658 1 Tablet(s) PO Q8 as needed 08/28/2016 09/26/2016 Inactive Toujeo SoloStar 300 unit/mL (1.5 mL) subcutaneous insulin pen RxNorm: 0091491 25 Unit(s) SQ QHS 08/23/2016 08/29/2017 Inactive dosage increase hydrocodone 5 mg-linh taminophen 325 mg tablet RxNorm: 190180 1 Tablet(s) PO Q8 as needed 07/26/2016 08/27/2016 Inactive Protonix 40 mg table t,delayed release RxNorm: 998686 Take 1 tablet by mout h daily 07/24/2016 11/26/2016 In active - First Attempt Ref: [id number] hydrocodone 5 mg-linh taminophen 325 mg tablet RxNorm: 304194 1 Tablet(s) PO Q8 as needed 06/19/2016 07/21/2016 Inactive Touparadiseo SoloStar 300 unit/mL (1.5 mL) subcutaneous insulin pen RxNorm: 3804869 32 Unit(s) SQ QHS 05/30/2016 08/22/2016 Inactive dosage increase hydrocodone 5 mg-linh taminophen 325 mg tablet RxNorm: 722399 1 Tablet(s) PO Q8 as needed 05/22/2016 06/18/2016 Inactive hydrocodone 5 mg-linh taminophen 325 mg tablet RxNorm: 743474 1 Tablet(s) PO Q8 as needed 04/18/2016 05/17/2016 Inactive Protonix 40 mg table t,delayed release RxNorm: 489227 Take 1 tablet by mout h daily 04/05/2016 07/03/2016 In active - Ref: [id number] metformin 500 mg tablet RxNorm: 647120 Take 1 tablet by mouth daily 04/04/2016 07/02/2016 Inactive - Ref: [id number] Xanax 0.5 mg tablet RxNorm: 787165 1 Tablet(s) PO TID 03/30/2016 09/25/2016 Inactive Xanax 0.5 mg tablet RxNorm: 965837 1 Tablet(s) PO TID 03/23/2016 12/25/2016 Inactive hydrocodone 5 mg-linh taminophen 325 mg tablet RxNorm: 580299 1 Tablet(s) PO Q8 as needed 03/06/2016 04/04/2016 Inactive Cipro 500 mg tablet RxNorm: 054120 1 Tablet(s) PO BID 02/24/2016 03/04/2016 Inactive Miralax 17 gram oral powder packet RxNorm: 901019 1 packet PO every oth er day 01/27/2016 No Stop Date Active hydrocodone 5 mg-linh taminophen 325 mg tablet RxNorm: 107015 1 Tablet(s) PO Q8 as needed 01/27/2016 02/25/2016 Inactive lisinopril 10 mg tablet RxNorm: 507917 1 Tablet(s) PO daily 01/12/2016 09/24/2016 Inactive simvastatin 40 mg ta blet RxNorm: 965433 1 Tablet(s) PO QHS 01/12/2016 11/28/2016 Inactive simvastatin 40 mg ta blet RxNorm: 185453 1 Tablet(s) PO QHS 01/11/2016 01/11/2016 Inactive lisinopril 10 mg tablet RxNorm: 674847 1 Tablet(s) PO daily 01/06/2016 01/11/2016 Inactive simvastatin 40 mg ta blet RxNorm: 275999 1 Tablet(s) PO daily 12/28/2015 01/10/2016 Inactive hydrocodone 5 mg-linh taminophen 325 mg tablet RxNorm: 881568 1 Tablet(s) PO Q8 as needed 12/27/2015 01/26/2016 Inactive Xanax 0.5 mg tablet RxNorm: 413096 1 Tablet(s) PO TID 11/30/2015 03/29/2016 Inactive Toujeo SoloStar 300 unit/mL (1.5 mL) subcutaneous insulin pen RxNorm: 4022584 30 Unit(s) SQ QHS 11/25/2015 05/29/2016 Inactive dosage increase meclizine 25 mg tablet RxNorm: 054554 1 Tablet(s) PO Q6 PRN TAKE ONE TABLET BY MOUTH EVERY 6 HOURS NEEDED 11/25/2015 02/22/2016 Inactive omeprazole 20 mg cap jacquelyn,delayed release RxNorm: 042120 1 Capsule(s) PO daily 10/06/2015 01/26/2016 In active Toujeo SoloStar 300 unit/mL (1.5 mL) subcutaneous insulin pen RxNorm: 9961960 35 Unit(s) SQ QHS 08/02/2015 11/24/2015 Inactive dosage increase Vitamin D2 50,000 un it capsule RxNorm: 425398 1 Capsule(s) PO QW 08/02/2015 09/05/2016 Inactive hydrocodone 5 mg-linh taminophen 325 mg tablet RxNorm: 827600 1 Tablet(s) PO Q8 as needed 07/11/2015 12/26/2015 Inactive Xanax 0.5 mg tablet RxNorm: 329485 1 Tablet(s) PO TID 06/30/2015 06/29/2015 Inactive Xanax 0.5 mg tablet RxNorm: 037892 1 Tablet(s) PO TID 06/30/2015 12/25/2015 Inactive hydrocodone 5 mg-linh taminophen 325 mg tablet RxNorm: 222926 1 Tablet(s) PO Q8 as needed 05/06/2015 07/10/2015 Inactive Symbicort 160 mcg-4. 5 mcg/actuation HFA aerosol inhaler RxNorm: 3216052 INH 04/25/2015 No Stop Date Active Levemir FlexTouch 10 0 unit/mL (3 mL) subcutaneous insulin pen RxNorm: 499538 30 Unit(s) SQ QHS 04/25/2015 11/24/2015 Inactive prednisone 20 mg tablet RxNorm: 386020 1 Tablet(s) PO BID 04/25/2015 04/29/2015 Inactive metformin 500 mg tablet RxNorm: 254449 1 Tablet(s) PO daily 04/25/2015 04/03/2016 Inactive amoxicillin 500 mg c apsule RxNorm: 880677 1 Capsule(s) PO TID 04/14/2015 04/13/2015 Inactive amoxicillin 500 mg c apsule RxNorm: 265902 1 Capsule(s) PO TID a nd recommend probiotic tid (otc) 04/14/2015 04/20/2015 Inactive Kenalog 40 mg/mL bartolome pension for injection RxNorm: 8206028 Milliliter(s) Inj 04/12/2015 04/12/2015 In active hydrocodone 5 mg-linh taminophen 325 mg tablet RxNorm: 714204 1 Tablet(s) PO Q8 as needed 03/30/2015 05/05/2015 Inactive Lantus 100 unit/mL s ubcutaneous solution RxNorm: 586333 25 Unit(s) SQ QPM 03/24/2015 04/25/2015 In active meclizine 25 mg tablet RxNorm: 923285 Tablet(s) TAKE ONE TABLET BY MOUTH EVERY 6 HOURS NEEDED 03/08/2015 04/06/2015 Inactive meclizine 25 mg tablet RxNorm: 802046 TAKE ONE TABLET BY MOUTH EVERY 6 HOURS A S NEEDED 02/25/2015 03/03/2015 Inactive Lantus 100 unit/mL s ubcutaneous solution RxNorm: 687979 20 Unit(s) SQ QPM 02/23/2015 03/23/2015 In active Lantus 100 unit/mL s ubcutaneous solution RxNorm: 098429 25 Unit(s) SQ QPM 02/23/2015 02/22/2015 In active hydrocodone 5 mg-linh taminophen 325 mg tablet RxNorm: 482408 1 Tablet(s) PO Q8 as needed 02/17/2015 03/29/2015 Inactive Xanax 0.5 mg tablet RxNorm: 529746 1 Tablet(s) PO TID 02/03/2015 06/29/2015 Inactive Lantus 100 unit/mL s ubcutaneous solution RxNorm: 932583 20 Unit(s) SQ QPM 12/29/2014 02/22/2015 In active Phenergan 12.5 mg re ctal suppository RxNorm: 200819 1 Suppository RTL Q6 PRN 12/23/2014 No Stop Date Active nausea Kenalog 40 mg/mL bartolome pension for injection RxNorm: 5103242 Milliliter(s) Inj 12/23/2014 12/23/2014 In active prednisone 20 mg tablet RxNorm: 918977 2 Tablet(s) PO daily 12/13/2014 12/17/2014 Inactive prednisone 20 mg tablet RxNorm: 239073 2 Tablet(s) PO daily 12/13/2014 12/12/2014 Inactive meclizine 25 mg tablet RxNorm: 157249 1 Tablet(s) PO Q6 PRN 12/09/2014 02/24/2015 Inactive hydrocodone 5 mg-linh taminophen 325 mg tablet RxNorm: 290276 1 Tablet(s) PO Q8 as needed 12/09/2014 02/16/2015 Inactive Vitamin B-12 1,000 m cg/mL oral drops RxNorm: 6813166 1 Milliliter(s) PO d aily No Start Date Active Alphagan P 0.1 % eye drops RxNorm: 386439 1 Drop(s) OPH BID No Start Date Active aspirin 325 mg table t,delayed release RxNorm: 534909 1 Tablet(s) PO daily No Start Date Active Tricor 145 mg tablet RxNorm: 687494 1 Tablet(s) PO daily No Start Date Active vitamin [id number] B1 oral liquid RxNorm: 1,000 Microgram(s) PO daily No Start Date Active atenolol 50 mg tablet RxNorm: 659662 1 Tablet(s) PO daily No Start Date Active Protonix 40 mg table t,delayed release RxNorm: 173126 1 Tablet(s) PO daily No Start Date 04/04/2016 Inactive glipizide 10 mg tablet RxNorm: 691133 1 Tablet(s) PO BID No Start Date 03/22/2015 Inactive Lantus 100 unit/mL s ubcutaneous solution RxNorm: 521419 15 Unit(s) SQ QPM No Start Date 12/28/2014 Inactive lisinopril 10 mg tablet RxNorm: 597980 1 Tablet(s) PO daily No Start Date 01/05/2016 Inactive Vitamin D2 50,000 un it capsule RxNorm: 519119 1 Capsule(s) PO QW No Start Date 08/01/2015 Inactive Toujeo SoloStar 300 unit/mL (1.5 mL) subcutaneous insulin pen RxNorm: 4836552 30 Unit(s) SQ QHS No Start Date 08/01/2015 Inactive simvastatin 40 mg ta blet RxNorm: 271288 1 Tablet(s) PO daily No Start Date 12/27/2015 Inactive testosterone cypiona te 200 mg/mL intramuscular oil RxNorm: 166335 1 Milliliter(s) IM monthly No Start Date 01/16/2018 Inactive hydrocodone 5 mg-linh taminophen 325 mg tablet RxNorm: 182955 1 Tablet(s) PO Q8 as needed No Start Date 12/08/2014 Inactive metformin 500 mg tablet RxNorm: 902662 1 Tablet(s) PO daily No Start Date 04/24/2015 Inactive omeprazole 20 mg cap jacquelyn,delayed release RxNorm: 244893 1 Capsule(s) PO daily No Start Date 10/05/2015 Inactive Flomax 0.4 mg capsule RxNorm: 659929 1 Capsule(s) PO daily No Start Date 03/23/2015 Inactive Medication Administered Medication Codes Instruc tions Start Date Status testosterone cypionate 200 mg/mL intramuscular oil RxNorm: 0611429 Milliliter 01/01/2019 No longer Active testosterone cypionate 200 mg/mL intramuscular oil RxNorm: 6571287 Milliliter 12/17/2018 No longer Active testosterone cypionate 200 mg/mL intramuscular oil RxNorm: 6561860 Milliliter 12/02/2018 No longer Active testosterone cypionate 200 mg/mL intramuscular oil RxNorm: 3597190 Milliliter 11/18/2018 No longer Active testosterone cypionate 200 mg/mL intramuscular oil RxNorm: 8060795 Milliliter 11/04/2018 No longer Active testosterone cypionate 200 mg/mL intramuscular oil RxNorm: 8579098 Milliliter 10/14/2018 No longer Active testosterone cypionate 200 mg/mL intramuscular oil RxNorm: 5451512 Milliliter 10/03/2018 No longer Active testosterone cypionate 200 mg/mL intramuscular oil RxNorm: 9290629 Milliliter 09/23/2018 No longer Active testosterone cypionate 200 mg/mL intramuscular oil RxNorm: 1579328 /2Milliliter 09/02/2018 No longer Active testosterone enanthate 200 mg/mL intramuscular oil RxNorm: 204302 Milliliter 08/21/2018 No longer Active testosterone cypionate 200 mg/mL intramuscular oil RxNorm: 8542284 Milliliter 08/08/2018 No longer Active testosterone cypionate 200 mg/mL intramuscular oil RxNorm: 8044786 1/2Milliliter 07/28/2018 No longer Active testosterone cypionate 200 mg/mL intramuscular oil RxNorm: 620511 Milliliter 07/16/2018 No longer Active testosterone cypionate 200 mg/mL intramuscular oil RxNorm: 183688 Milliliter 07/02/2018 No longer Active testosterone cypionate 200 mg/mL intramuscular oil RxNorm: 367350 Milliliter 06/24/2018 No longer Active testosterone cypionate 200 mg/mL intramuscular oil RxNorm: 997229 Milliliter 06/13/2018 No longer Active testosterone cypionate 200 mg/mL intramuscular oil RxNorm: [id number] [facility] 06/05/2018 No longer Active testosterone cypionate 200 mg/mL intramuscular oil RxNorm: 256984 [facility] 05/30/2018 No longer Active testosterone cypionate 200 mg/mL intramuscular oil RxNorm: 606208 [facility] 05/22/2018 No longer Active testosterone cypionate 200 mg/mL intramuscular oil RxNorm: 052414 /2[facility] 05/12/2018 No longer Active testosterone cypionate 200 mg/mL intramuscular oil RxNorm: 043110 [facility] 05/02/2018 No longer Active testosterone cypionate 200 mg/mL intramuscular oil RxNorm: 938057 0.5[facility]iliter 04/24/2018 No longer Active testosterone cypionate 200 mg/mL intramuscular oil RxNorm: 329170 1/2[facility] 04/17/2018 No longer Active ketorolac 60 mg/2 mL intramuscular solution RxNorm: 6544161 [facility] 03/07/2018 No longer Active Kenalog 40 mg/mL suspension for injection RxNorm: 4110673 1.5[facility]iliter 01/30/2018 No longer Active testosterone cypionate 200 mg/mL intramuscular oil RxNorm: 923428 [facility] 01/17/2018 No longer Active Kenalog 40 mg/mL suspension for injection RxNorm: 4159901 [facility] 04/12/2015 No longer Active Kenalog 40 mg/mL suspension for injection RxNorm: 2097254 [facility] 12/23/2014 No longer Active Immunizations Vaccine Codes Date Status Influenza CVX: 141 06/06 completed Influenza CVX: 141 04/25 completed Pneumococcal (Adult) CVX: 133 04/25/2017 completed Influenza CVX: 141 05/22 completed Assessments Condition Codes Effectiv e Dates Testicular dysfunction, unspecified ICD-10: E29.9 ICD-9: 257.9 01/01/2019 Chronic obstructive pulmonary disease, unspecified ICD-10: J44.9 [...] 33.4 pg 12/02/2018 Cbc With Differential Ord2 [place]% 8.0 % 12/02/2018 Cbc With Differential Ord2 [...] 2.13 K/ul 12/02/2018 Cbc With Differential Ord2 [place] ABS# 0.6 K/ul 12/02/2018 Cbc With Differential Ord2 Eos ABS# 0.4 K/ul 12/02/2018 Cbc With Differential Ord2 Baso ABS# 0.0 K/ul 12/02/2018 Testosterone Aad009 Testo 213.5 ng/dL 12/02/2018 A1C Frequency Mje469 A1CF 51063-7 Last A1C performed at [facility] [place] lab on: 201812/02/2018 Testosterone Hkb897 Testo 669.0 ng/dL 09/08/2018 %Hba1C Efh642 % HbA1c 29647-9 7.4 % 09/08/2018 %Hba1C Dia776 Gluc Ave 166 mg/dL 09/08/2018 Lipid Ord30 CHOL 114 mg/dL 09/08/2018 Lipid Ord30 HDL 28.0 mg/dl 09/08/2018 Lipid Ord30 TRIG 154 mg/dL 09/08/2018 Lipid Ord30 LDL 55 mg/dL 09/08/2018 Lipid Ord30 C/HDL 4.1 Ratio 09/08/2018 Comp Metabolic Eqx837 NA 137 mEq/L 09/08/2018 Comp Metabolic Ozz373 K 4.3 mEq/L 09/08/2018 Comp Metabolic Iwg894 CL 100 mEq/L 09/08/2018 Comp Metabolic Pnl438 CO2 27.0 mEq/L 09/08/2018 Comp Metabolic Acp346 AN ION GAP 14 09/08/2018 Comp Metabolic Xqu518 GL UCOSE 85 mg/dL 09/08/2018 Comp Metabolic Oto786 Cr eat 1.1 mg/dL 09/08/2018 Comp Metabolic Wfw599 eG FR 70 ml/min/1.73m2 09/08 Comp Metabolic Cbo643 BUN 11 mg/dL 09/08/2018 Comp Metabolic Hpu163 B/ C Ratio 10.3 Ratio 09/08/2018 Comp Metabolic Ahb007 CA LCIUM 9.2 mg/dL 09/08/2018 Comp Metabolic Hsm089 AL K PHOS 65 U/L 09/08/2018 Comp Metabolic Rsb048 T(SGOT) 16 U/L 09/08/2018 Comp Metabolic Qkq460 AL T(SGPT) 14 U/L 09/08/2018 Comp Metabolic Sfw639 BI LI T 0.6 mg/dL 09/08/2018 Comp Metabolic Ekw458 AL BUMIN 4.0 g/dL 09/08/2018 Comp Metabolic Zgd432 TP RO 6.6 g/dL 09/08/2018 Comp Metabolic Isk438 GL OB 2.6 g/dL 09/08/2018 Comp Metabolic Vgl476 A/ G Ratio 1.6 Ratio 09/08/2018 Comp Metabolic Zgw313 Os mo 272 mOsmo 09/08/2018 Vitamin D 25 Oh [id number] VITAMIN D, 25 HYDROXY 37.17 ng/mL 09/08/2018 [...] 33.3 pg 09/08/2018 Cbc With Differential Ord2 [place]% 8.1 % 09/08/2018 Cbc With Differential Ord2 [...] 2.44 K/ul 09/08/2018 Cbc With Differential Ord2 [place] ABS# 0.6 K/ul 09/08/2018 Cbc With Differential Ord2 Eos ABS# 0.3 K/ul 09/08/2018 Cbc With Differential Ord2 Baso ABS# 0.0 K/ul 09/08/2018 Tsh Ord6 TSH (3rd IS) 2.72 uIU/mL 09/08/2018 Comp Metabolic Vox194 NA 139 mEq/L 04/01/2018 Comp Metabolic Cfg247 K 4.2 mEq/L 04/01/2018 Comp Metabolic Xsn970 CL 102 mEq/L 04/01/2018 Comp Metabolic Nxf328 CO2 29.0 mEq/L 04/01/2018 Comp Metabolic Lnh915 AN ION GAP 12 04/01/2018 Comp Metabolic Srh619 GL UCOSE 87 mg/dL 04/01/2018 Comp Metabolic Tui007 Cr eat 1.1 mg/dL 04/01/2018 Comp Metabolic Sbs993 eG FR 70 ml/min/1.73m2 04/01 Comp Metabolic Dtv799 BUN 21 mg/dL 04/01/2018 Comp Metabolic Exl226 B/ C Ratio 19.4 Ratio 04/01/2018 Comp Metabolic Bhp996 CA LCIUM 9.1 mg/dL 04/01/2018 Comp Metabolic Afp912 AL K PHOS 60 U/L 04/01/2018 Comp Metabolic Ggr375 T(SGOT) 15 U/L 04/01/2018 Comp Metabolic Cxy214 AL T(SGPT) 18 U/L 04/01/2018 Comp Metabolic Crk902 BI LI T 0.4 mg/dL 04/01/2018 Comp Metabolic Ifn271 AL BUMIN 4.0 g/dL 04/01/2018 Comp Metabolic Hig485 TP RO 6.5 g/dL 04/01/2018 Comp Metabolic Zee801 GL OB 2.5 g/dL 04/01/2018 Comp Metabolic Myc299 A/ G Ratio 1.6 Ratio 04/01/2018 Comp Metabolic Oym217 Os mo 280 mOsmo 04/01/2018 Lipid Ord30 [...] 34.3 pg 04/01/2018 Cbc With Differential Ord2 [place]% 6.0 % 04/01/2018 Cbc With Differential Ord2 [...] 3.25 K/ul 04/01/2018 Cbc With Differential Ord2 [place] ABS# 0.6 K/ul 04/01/2018 Cbc With Differential Ord2 Eos ABS# 0.4 K/ul 04/01/2018 Cbc With Differential Ord2 Baso ABS# 0.0 K/ul 04/01/2018 %Hba1C Gsk620 % HbA1c 84926-0 8.0 % 04/01/2018 %Hba1C Sih837 Gluc Ave 183 mg/dL 04/01/2018 Testosterone Xfl316 Testo 111.3 ng/dL 04/01/2018 Testosterone Wtc902 Testo 135.4 ng/dL 01/14/2018 Cbc With Differential [...] 36.0 pg 01/14/2018 Cbc With Differential Ord2 [place]% 6.8 % 01/14/2018 Cbc With Differential Ord2 [...] 2.71 K/ul 01/14/2018 Cbc With Differential Ord2 [place] ABS# 0.8 K/ul 01/14/2018 Cbc With Differential Ord2 Eos ABS# 0.2 K/ul 01/14/2018 Cbc With Differential Ord2 Baso ABS# 0.0 K/ul 01/14/2018 Comp Metabolic Djc394 NA 134 mEq/L 11/20/2017 Comp Metabolic Jwr017 K 4.4 mEq/L 11/20/2017 Comp Metabolic Hro294 CL 99 mEq/L 11/20/2017 Comp Metabolic Gzc794 CO2 29.0 mEq/L 11/20/2017 Comp Metabolic Trd101 AN ION GAP 10 11/20/2017 Comp Metabolic Rcs206 GL UCOSE 218 mg/dL 11/20/2017 Comp Metabolic Huw226 Cr eat 1.0 mg/dL 11/20/2017 Comp Metabolic Pfc754 eG FR 78 ml/min/1.73m2 11/20 Comp Metabolic Kbd167 BUN 13 mg/dL 11/20/2017 Comp Metabolic Qnk776 B/ C Ratio 13.3 Ratio 11/20/2017 Comp Metabolic Val759 CA LCIUM 9.0 mg/dL 11/20/2017 Comp Metabolic Tkl947 AL K PHOS 71 U/L 11/20/2017 Comp Metabolic Riu730 T(SGOT) 18 U/L 11/20/2017 Comp Metabolic Coz524 AL T(SGPT) 17 U/L 11/20/2017 Comp Metabolic Yvj352 BI LI T 0.4 mg/dL 11/20/2017 Comp Metabolic Fhi562 AL BUMIN 4.1 g/dL 11/20/2017 Comp Metabolic Ssb211 TP RO 6.5 g/dL 11/20/2017 Comp Metabolic Ybj477 GL OB 2.4 g/dL 11/20/2017 Comp Metabolic Izc029 A/ G Ratio 1.8 Ratio 11/20/2017 Comp Metabolic Ufr846 Os mo 275 mOsmo 11/20/2017 Cbc With [...] 35.2 pg 11/20/2017 Cbc With Differential Ord2 [place]% 7.2 % 11/20/2017 Cbc With Differential Ord2 [...] 3.34 K/ul 11/20/2017 Cbc With Differential Ord2 [place] ABS# 0.6 K/ul 11/20/2017 Cbc With Differential Ord2 Eos ABS# 0.3 K/ul 11/20/2017 Cbc With Differential Ord2 Baso ABS# 0.0 K/ul 11/20/2017 Vitamin D 25 Oh Bhz8568 VITAMIN D, 25 HYDROXY 43.72 ng/mL 11/20/2017 %Hba1C Cnh699 % HbA1c 38945-6 7.4 % 11/20/2017 %Hba1C Rur057 Gluc Ave 166 mg/dL 11/20/2017 %Hba1C Qog365 % HbA1c 59857-9 7.2 % 08/20/2017 %Hba1C Tvf942 Gluc Ave 160 mg/dL 08/20/2017 Lipid Ord30 [...] 34.7 pg 08/20/2017 Cbc With Differential Ord2 [place]% 7.6 % 08/20/2017 Cbc With Differential Ord2 [...] 2.42 K/ul 08/20/2017 Cbc With Differential Ord2 [place] ABS# 0.6 K/ul 08/20/2017 Cbc With Differential Ord2 Eos ABS# 0.3 K/ul 08/20/2017 Cbc With Differential Ord2 Baso ABS# 0.0 K/ul 08/20/2017 Tsh Ord6 hTSH II 2.27 uIU/mL 08/20/2017 Comp Metabolic Vgh171 NA 138 mEq/L 08/20/2017 Comp Metabolic Vwp198 K 4.3 mEq/L 08/20/2017 Comp Metabolic Ira816 CL 102 mEq/L 08/20/2017 Comp Metabolic Jbf588 CO2 29.0 mEq/L 08/20/2017 Comp Metabolic Iwm590 AN ION GAP 11 08/20/2017 Comp Metabolic Kzj579 GL UCOSE 89 mg/dL 08/20/2017 Comp Metabolic Fgr678 Cr eat 1.0 mg/dL 08/20/2017 Comp Metabolic Ges388 eG FR 80 ml/min/1.73m2 08/20 Comp Metabolic Toa638 BUN 13 mg/dL 08/20/2017 Comp Metabolic Mgr690 B/ C Ratio 13.5 Ratio 08/20/2017 Comp Metabolic Ant361 CA LCIUM 9.2 mg/dL 08/20/2017 Comp Metabolic Pnj066 AL K PHOS 69 U/L 08/20/2017 Comp Metabolic Srt874 T(SGOT) 18 U/L 08/20/2017 Comp Metabolic Ads008 AL T(SGPT) 19 U/L 08/20/2017 Comp Metabolic Wyk499 BI LI T 0.6 mg/dL 08/20/2017 Comp Metabolic Bwa821 AL BUMIN 4.0 g/dL 08/20/2017 Comp Metabolic Ttz857 TP RO 6.6 g/dL 08/20/2017 Comp Metabolic Vxo477 GL OB 2.6 g/dL 08/20/2017 Comp Metabolic Xta864 A/ G Ratio 1.5 Ratio 08/20/2017 Comp Metabolic Cyq453 Os mo 275 mOsmo 08/20/2017 Vitamin D 25 Oh Kuk0093 VITAMIN D, 25 HYDROXY 30.96 ng/mL 08/20/2017 B12 Moh631 B12 >1500.00 pg/ml 02/22/2017 Cbc With Differential [...] 35.7 pg 02/20/2017 Cbc With Differential Ord2 [place]% 6.3 % 02/20/2017 Cbc With Differential Ord2 [...] 3.19 K/ul 02/20/2017 Cbc With Differential Ord2 [place] ABS# 0.5 K/ul 02/20/2017 Cbc With Differential Ord2 Eos ABS# 0.4 K/ul 02/20/2017 Cbc With Differential Ord2 Baso ABS# 0.0 K/ul 02/20/2017 Comp Metabolic Lon787 NA 138 mEq/L 02/20/2017 Comp Metabolic Yri124 K 4.5 mEq/L 02/20/2017 Comp Metabolic Pjd573 CL 101 mEq/L 02/20/2017 Comp Metabolic Wug780 CO2 31.0 mEq/L 02/20/2017 Comp Metabolic Gls108 AN ION GAP 11 02/20/2017 Comp Metabolic Dyp596 GL UCOSE 120 mg/dL 02/20/2017 Comp Metabolic Jco161 Cr eat 0.9 mg/dL 02/20/2017 Comp Metabolic Zbe961 eG FR 83 ml/min/1.73m2 02/20 Comp Metabolic Vfl800 BUN 15 mg/dL 02/20/2017 Comp Metabolic Nqo093 B/ C Ratio 16.1 Ratio 02/20/2017 Comp Metabolic Vjo936 CA LCIUM 9.1 mg/dL 02/20/2017 Comp Metabolic Lft569 AL K PHOS 67 U/L 02/20/2017 Comp Metabolic Isp529 T(SGOT) 15 U/L 02/20/2017 Comp Metabolic Mam806 AL T(SGPT) 16 U/L 02/20/2017 Comp Metabolic Ets089 BI LI T 0.5 mg/dL 02/20/2017 Comp Metabolic Oqj471 AL BUMIN 4.0 g/dL 02/20/2017 Comp Metabolic Gpo555 TP RO 6.4 g/dL 02/20/2017 Comp Metabolic Xsb889 GL OB 2.4 g/dL 02/20/2017 Comp Metabolic Atl515 A/ G Ratio 1.7 Ratio 02/20/2017 Comp Metabolic Wpq015 Os mo 278 mOsmo 02/20/2017 Tsh Ord6 hTSH II 2.05 uIU/mL 02/20/2017 %Hba1C Doc696 % HbA1c 95173-2 7.6 % 02/20/2017 %Hba1C Kts784 Gluc Ave 171 mg/dL 02/20/2017 Vitamin D 25 Oh Han2228 VITAMIN D, 25 HYDROXY 44.40 ng/mL 12/21/2016 Comp Metabolic Yfh025 NA 131 mEq/L 12/21/2016 Comp Metabolic Otf188 K 4.2 mEq/L 12/21/2016 Comp Metabolic Tsz193 CL 97 mEq/L 12/21/2016 Comp Metabolic Cld410 CO2 27.0 mEq/L 12/21/2016 Comp Metabolic Uki811 AN ION GAP 11 12/21/2016 Comp Metabolic Swx267 GL UCOSE 266 mg/dL 12/21/2016 Comp Metabolic Cpi870 Cr eat 0.9 mg/dL 12/21/2016 Comp Metabolic Qiu878 eG FR 88 ml/min/1.73m2 12/21 Comp Metabolic Jzq186 BUN 12 mg/dL 12/21/2016 Comp Metabolic Jxb837 B/ C Ratio 13.6 Ratio 12/21/2016 Comp Metabolic Znb505 CA LCIUM 8.6 mg/dL 12/21/2016 Comp Metabolic Wwt841 AL K PHOS 69 U/L 12/21/2016 Comp Metabolic Psd131 T(SGOT) 15 U/L 12/21/2016 Comp Metabolic Lzr358 AL T(SGPT) 14 U/L 12/21/2016 Comp Metabolic Sjt020 BI LI T 0.3 mg/dL 12/21/2016 Comp Metabolic Odd535 AL BUMIN 3.7 g/dL 12/21/2016 Comp Metabolic Ojk495 TP RO 5.9 g/dL 12/21/2016 Comp Metabolic Mqf437 GL OB 2.2 g/dL 12/21/2016 Comp Metabolic Eqs223 A/ G Ratio 1.7 Ratio 12/21/2016 Comp Metabolic Nrb661 Os mo 272 mOsmo 12/21/2016 Cbc With [...] 34.6 pg 12/21/2016 Cbc With Differential Ord2 [place]% 6.9 % 12/21/2016 Cbc With Differential Ord2 [...] 2.05 K/ul 12/21/2016 Cbc With Differential Ord2 [place] ABS# 0.4 K/ul 12/21/2016 Cbc With Differential Ord2 Eos ABS# 0.2 K/ul 12/21/2016 Cbc With Differential Ord2 Baso ABS# 0.0 K/ul 12/21/2016 Comp Metabolic Mgw545 NA 138 mEq/L 09/03/2016 Comp Metabolic Ryl745 K 4.5 mEq/L 09/03/2016 Comp Metabolic Bzl528 CL 102 mEq/L 09/03/2016 Comp Metabolic Mrt445 CO2 30.0 mEq/L 09/03/2016 Comp Metabolic Piq489 AN ION GAP 11 09/03/2016 Comp Metabolic Rek539 GL UCOSE 113 mg/dL 09/03/2016 Comp Metabolic Pzf386 Cr eat 1.0 mg/dL 09/03/2016 Comp Metabolic Acg828 eG FR 81 ml/min/1.73m2 09/03 Comp Metabolic Hpn941 BUN 10 mg/dL 09/03/2016 Comp Metabolic Gks788 B/ C Ratio 10.5 Ratio 09/03/2016 Comp Metabolic Jby167 CA LCIUM 9.1 mg/dL 09/03/2016 Comp Metabolic Gir489 AL K PHOS 71 U/L 09/03/2016 Comp Metabolic Umm062 T(SGOT) 18 U/L 09/03/2016 Comp Metabolic Zup473 AL T(SGPT) 17 U/L 09/03/2016 Comp Metabolic Pdh278 BI LI T 0.6 mg/dL 09/03/2016 Comp Metabolic Evh631 AL BUMIN 4.1 g/dL 09/03/2016 Comp Metabolic Hks196 TP RO 6.4 g/dL 09/03/2016 Comp Metabolic Ysh424 GL OB 2.3 g/dL 09/03/2016 Comp Metabolic Oam843 A/ G Ratio 1.8 Ratio 09/03/2016 Comp Metabolic Bgc591 Os mo 276 mOsmo 09/03/2016 Vitamin D 25 Oh Oje5268 VITAMIN D, 25 HYDROXY 28.23 ng/mL 09/03/2016 [...] 34.4 pg 09/03/2016 Cbc With Differential Ord2 [place]% 8.9 % 09/03/2016 Cbc With Differential Ord2 [...] 3.34 K/ul 09/03/2016 Cbc With Differential Ord2 [place] ABS# 0.7 K/ul 09/03/2016 Cbc With Differential Ord2 Eos ABS# 0.4 K/ul 09/03/2016 Cbc With Differential Ord2 Baso ABS# 0.0 K/ul 09/03/2016 Lipid Ord30 CHOL 120 mg/dL 09/03/2016 Lipid Ord30 HDL 33.0 mg/dl 09/03/2016 Lipid Ord30 TRIG 161 mg/dL 09/03/2016 Lipid Ord30 LDL 55 mg/dL 09/03/2016 Lipid Ord30 C/HDL 3.6 Ratio 09/03/2016 %Hba1C Clm914 % HbA1c 15772-8 7.5 % 09/03/2016 %Hba1C Zgk862 Gluc Ave 169 mg/dL 09/03/2016 Tsh Ord6 hTSH II 1.50 uIU/mL 05/23/2016 %Hba1C Ixx313 % HbA1c 66255-8 7.6 % 05/23/2016 %Hba1C Ckl315 Gluc Ave 171 mg/dL 05/23/2016 Comp Metabolic Dnb828 NA 135 mEq/L 05/23/2016 Comp Metabolic Ian244 K 4.4 mEq/L 05/23/2016 Comp Metabolic Uql258 CL 99 mEq/L 05/23/2016 Comp Metabolic Mos560 CO2 28.0 mEq/L 05/23/2016 Comp Metabolic Gcw104 AN ION GAP 12 05/23/2016 Comp Metabolic Lyh688 GL UCOSE 257 mg/dL 05/23/2016 Comp Metabolic Xrj316 Cr eat 0.8 mg/dL 05/23/2016 Comp Metabolic Fnf789 eG FR 95 ml/min/1.73m2 05/23 Comp Metabolic Nwk973 BUN 11 mg/dL 05/23/2016 Comp Metabolic Pcy185 B/ C Ratio 13.3 Ratio 05/23/2016 Comp Metabolic Tfb561 CA LCIUM 9.0 mg/dL 05/23/2016 Comp Metabolic Cho355 AL K PHOS 82 U/L 05/23/2016 Comp Metabolic Kog823 T(SGOT) 21 U/L 05/23/2016 Comp Metabolic Cyy112 AL T(SGPT) 20 U/L 05/23/2016 Comp Metabolic Exa172 BI LI T 0.3 mg/dL 05/23/2016 Comp Metabolic Jnx459 AL BUMIN 4.0 g/dL 05/23/2016 Comp Metabolic Ukp659 TP RO 6.4 g/dL 05/23/2016 Comp Metabolic Cgw081 GL OB 2.4 g/dL 05/23/2016 Comp Metabolic Czl035 A/ G Ratio 1.6 Ratio 05/23/2016 Comp Metabolic Hro054 Os mo 278 mOsmo 05/23/2016 Cbc With [...] 34.5 pg 05/23/2016 Cbc With Differential Ord2 [place]% 6.1 % 05/23/2016 Cbc With Differential Ord2 [...] 2.38 K/ul 05/23/2016 Cbc With Differential Ord2 [place] ABS# 0.4 K/ul 05/23/2016 Cbc With Differential Ord2 Eos ABS# 0.2 K/ul 05/23/2016 Cbc With Differential Ord2 Baso ABS# 0.0 K/ul 05/23/2016 B12 Kuq364 B12 597.00 pg/ml 05/23/2016 Metabolic Ord15 NA [...] 0.92 uIU/mL 07/29/2015 Vitamin D 25 Oh Zvz1494 VITAMIN D, 25 HYDROXY 26.93 ng/mL 07/29/2015 %Hba1C Wmy385 % HbA1c 51169-7 8.8 % 07/29/2015 %Hba1C Nas378 Gluc Ave 206 mg/dL 07/29/2015 Cbc With [...] Ord2 RDW 14.9 % 07/29/2015 Comp Metabolic Gcl133 NA 138 mEq/L 07/29/2015 Comp Metabolic Ajw674 K 4.4 mEq/L 07/29/2015 Comp Metabolic Zhm277 CL 102 mEq/L 07/29/2015 Comp Metabolic Lvk176 CO2 28.0 mEq/L 07/29/2015 Comp Metabolic Qrv491 AN ION GAP 12 07/29/2015 Comp Metabolic Epb844 GL UCOSE 261 mg/dL 07/29/2015 Comp Metabolic Ctu516 Cr eat 1.0 mg/dL 07/29/2015 Comp Metabolic Gli755 eG FR 77 ml/min/1.73m2 07/29 Comp Metabolic Mjd765 BUN 13 mg/dL 07/29/2015 Comp Metabolic Spm128 B/ C Ratio 13.0 Ratio 07/29/2015 Comp Metabolic Kln985 CA LCIUM 9.1 mg/dL 07/29/2015 Comp Metabolic Lvr574 AL K PHOS 64 U/L 07/29/2015 Comp Metabolic Noa855 T(SGOT) 20 U/L 07/29/2015 Comp Metabolic Yno350 AL T(SGPT) 22 U/L 07/29/2015 Comp Metabolic Nmu122 BI LI T 0.4 mg/dL 07/29/2015 Comp Metabolic Ume731 AL BUMIN 4.0 g/dL 07/29/2015 Comp Metabolic Rbu799 TP RO 6.1 g/dL 07/29/2015 Comp Metabolic Kqs749 GL OB 2.1 g/dL 07/29/2015 Comp Metabolic Kzu391 A/ G Ratio 1.9 Ratio 07/29/2015 Comp Metabolic Ych226 Os mo 285 mOsmo 07/29/2015 Cbc With [...] Ord2 RDW 13.1 % 05/06/2015 Comp Metabolic Qeu846 NA 134 mEq/L 05/06/2015 Comp Metabolic Ozi615 K 4.4 mEq/L 05/06/2015 Comp Metabolic Yxu942 CL 98 mEq/L 05/06/2015 Comp Metabolic Ady292 CO2 29.0 mEq/L 05/06/2015 Comp Metabolic Mse011 AN ION GAP 11 05/06/2015 Comp Metabolic Ezn804 GL UCOSE 321 mg/dL 05/06/2015 Comp Metabolic Baq930 Cr eat 1.0 mg/dL 05/06/2015 Comp Metabolic Qzm355 eG FR 78 ml/min/1.73m2 05/06 Comp Metabolic Ndn021 BUN 20 mg/dL 05/06/2015 Comp Metabolic Oop021 B/ C Ratio 20.4 Ratio 05/06/2015 Comp Metabolic Ssv528 CA LCIUM 9.5 mg/dL 05/06/2015 Comp Metabolic Xew043 AL K PHOS 62 U/L 05/06/2015 Comp Metabolic Zby928 T(SGOT) 21 U/L 05/06/2015 Comp Metabolic Pbo948 AL T(SGPT) 37 U/L 05/06/2015 Comp Metabolic Yrc826 BI LI T 0.4 mg/dL 05/06/2015 Comp Metabolic Dui972 AL BUMIN 3.8 g/dL 05/06/2015 Comp Metabolic Mck884 TP RO 6.1 g/dL 05/06/2015 Comp Metabolic Ect166 GL OB 2.3 g/dL 05/06/2015 Comp Metabolic Vpr364 A/ G Ratio 1.7 Ratio 05/06/2015 Comp Metabolic Kmr355 Os mo 283 mOsmo 05/06/2015 Tsh Ord6 hTSH II 1.65 uIU/mL 02/18/2015 B12 Aok173 B12 605.00 pg/ml 02/18/2015 %Hba1C Wid168 % HbA1c 70109-8 8.3 % 02/18/2015 %Hba1C Dpl468 Gluc Ave 192 mg/dL 02/18/2015 Cbc With [...] Ord2 RDW 13.9 % 02/17/2015 Comp Metabolic Dkl403 NA 137 mEq/L 02/17/2015 Comp Metabolic Qbb344 K 4.4 mEq/L 02/17/2015 Comp Metabolic Etz387 CL 100 mEq/L 02/17/2015 Comp Metabolic Jku648 CO2 31.0 mEq/L 02/17/2015 Comp Metabolic Fti455 AN ION GAP 10 02/17/2015 Comp Metabolic Wfp226 GL UCOSE 307 mg/dL 02/17/2015 Comp Metabolic Qhl348 Cr eat 1.0 mg/dL 02/17/2015 Comp Metabolic Rpb835 eG FR 74 ml/min/1.73m2 02/17 Comp Metabolic Hnf346 BUN 22 mg/dL 02/17/2015 Comp Metabolic Obt081 B/ C Ratio 21.4 Ratio 02/17/2015 Comp Metabolic Evi853 CA LCIUM 9.5 mg/dL 02/17/2015 Comp Metabolic Jgl563 AL K PHOS 78 U/L 02/17/2015 Comp Metabolic Aci703 T(SGOT) 18 U/L 02/17/2015 Comp Metabolic Cgs762 AL T(SGPT) 32 U/L 02/17/2015 Comp Metabolic Lxb168 BI LI T 0.5 mg/dL 02/17/2015 Comp Metabolic Qmh142 AL BUMIN 4.3 g/dL 02/17/2015 Comp Metabolic Zab161 TP RO 6.7 g/dL 02/17/2015 Comp Metabolic Epb278 GL OB 2.4 g/dL 02/17/2015 Comp Metabolic Gny449 A/ G Ratio 1.8 Ratio 02/17/2015 Comp Metabolic Nsi868 Os mo 289 mOsmo 02/17/2015 Review of [...] smoking 02/17/2015 Respiratory cough 2014 Respiratory dyspnea 0704/2015 Genitourinary/Nephrology No dysuria 02/17/2015 Genitourinary/Nephrology No hematuria 02/17/2015 Musculoskeletal No back pain 02/17/2015 Musculoskeletal stiffness 02/17/2015 Dermatologic No rash 04/2015 Dermatologic No sores Neurologic dizziness 04/2015 Neurologic gait abnormality 02/17/2015 Psychiatric anxiety 07/0 04/2015 Psychiatric No depression 02/17/2015 Respiratory daytime [...] thin 09/02/2018 None Full Exam - General 1995 Eyes conjunctiva/eyelids Overall: conjunctiva clear 09/02/2018 None [...] inspection of skin Location: face 03/07/2015 on synagogue, cheeks,actinic keratosis with irritation on left cheek - left synagogue - croptherapy on these two lesions - [...] Procedure Codes Date THER/PROPH/DIAG INJ SC/IM CPT-4: 93433 01/01/2019 THER/PROPH/DIAG INJ SC/IM CPT-4: 04356 12/17/2018 THER/PROPH/DIAG INJ SC/IM CPT-4: 67992 12/02/2018 THER/PROPH/DIAG INJ SC/IM CPT-4: 29777 11/18/2018 THER/PROPH/DIAG INJ SC/IM CPT-4: 20304 11/04/2018 THER/PROPH/DIAG INJ SC/IM CPT-4: 37823 10/14/2018 THER/PROPH/DIAG INJ SC/IM CPT-4: 80851 10/03/2018 THER/PROPH/DIAG INJ SC/IM CPT-4: 96918 09/23/2018 THER/PROPH/DIAG INJ SC/IM CPT-4: 82263 09/02/2018 THER/PROPH/DIAG INJ SC/IM CPT-4: 02079 08/21/2018 THER/PROPH/DIAG INJ SC/IM CPT-4: 22828 08/08/2018 THER/PROPH/DIAG INJ SC/IM CPT-4: 89296 07/28/2018 THER/PROPH/DIAG INJ SC/IM CPT-4: 10428 07/16/2018 THER/PROPH/DIAG INJ SC/IM CPT-4: 41178 07/02/2018 PPPS, SUBSEQ VISIT CPT- 4: G0439 06/30/2018 THER/PROPH/DIAG INJ SC/IM CPT-4: 90008 06/24/2018 THER/PROPH/DIAG INJ SC/IM CPT-4: 08971 06/13/2018 ADMIN INFLUENZA VIRU S VAC CPT-4: G0008 06/06/2018 FLU VACC PRSV FREE I NC ANTIG CPT-4: 15840 06/06/2018 THER/PROPH/DIAG INJ SC/IM CPT-4: 11641 06/05/2018 THER/PROPH/DIAG INJ SC/IM CPT-4: 04894 05/30/2018 THER/PROPH/DIAG INJ SC/IM CPT-4: 90479 05/22/2018 THER/PROPH/DIAG INJ SC/IM CPT-4: 23715 05/12/2018 THER/PROPH/DIAG INJ SC/IM CPT-4: 21013 05/02/2018 THER/PROPH/DIAG INJ SC/IM CPT-4: 70870 04/24/2018 THER/PROPH/DIAG INJ SC/IM CPT-4: 81099 04/17/2018 KETOROLAC TROMETHAMI NE INJ CPT-4: J1885 03/07/2018 URINALYSIS NONAUTO W /O SCOPE CPT-4: 46791 03/07/2018 THER/PROPH/DIAG INJ SC/IM CPT-4: 13727 02/20/2018 TRIAMCINOLONE ACET I [place] NOS CPT-4: J3301 01/30/2018 THER/PROPH/DIAG INJ SC/IM CPT-4: 82710 01/17/2018 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 3-[address]: 933224111 CPT-4: G0436 04/25/2017 ADMIN INFLUENZA VIRU S VAC CPT-4: G0008 04/25/2017 ADMIN PNEUMOCOCCAL V ACCINE SNOMED CT: 80923553 CPT-4: G0009 04/25/2017 PNEUMOCOCCAL VACC [address]: 09505210 CPT-4: 57054 04/25/2017 FLU VACC PRSV FREE I NC ANTIG CPT-4: 63179 04/25/2017 ADMIN INFLUENZA VIRU S VAC CPT-4: G0008 05/22/2016 FLU VACC 4 TELLY 3 YRS PLUS IM Formatting Model/CDA Sections, Assigned to/Angela Clemons SNOMED CT: 91375318 CPT-4: 15373Xcclzvr 05/22/2016 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 3-[address]: 638730819 CPT-4: G0436 11/25/2015 URINALYSIS NONAUTO W /O SCOPE CPT-4: 37369 05/09/2015 TRIAMCINOLONE ACET I [place] NOS CPT-4: J3301 04/12/2015 DESTRUCT PREMALG LESION CPT-4: 69574 03/07/2015 DESTRUCT PREMALG LES 2-14 CPT-4: 47509 03/07/2015 REMOVE IMPACTED EAR WAX UNI CPT-4: 75061 12/31/2014 THER/PROPH/DIAG INJ SC/IM CPT-4: 09979 12/23/2014 TRIAMCINOLONE ACET I [place] NOS CPT-4: J3301 12/23/2014 Vital Signs Date Vital 12/02/2018 Blood Pressure 1: 140/70 Code: 8480-6 BMI: 21.9 Code: 47710-5 Heart Rate 1: 61 bpm Height: 5'11" SpO2: 94% Weight: 157 lbs 10/17/2018 Blood Pressure 1: 124/54 Code: 8480-6 BMI: 21.9 Code: 71868-2 Heart Rate 1: 64 bpm Height: 5'11" SpO2: 93% Weight: 157 lbs 09/02/2018 Blood Pressure 1: 140/80 Code: 8480-6 BMI: 21.2 Code: 07395-3 Heart Rate 1: 68 bpm Height: 5'11" SpO2: 97% Weight: 152 lbs 06/30/2018 BMI: 21.8 Code: 40542-3 Height: 5'11" Weight: 156 lbs 06/06/2018 Blood Pressure 1: 128/76 Code: 8480-6 BMI: 22.0 Code: 27264-9 Heart Rate 1: 81 bpm Height: 5'11" SpO2: 92% Weight: 158 lbs 04/04/2018 Blood Pressure 1: 124/70 Code: 8480-6 BMI: 20.8 Code: 53755-3 Heart Rate 1: 65 bpm Height: 5'11" SpO2: 95% Weight: 149 lbs 03/07/2018 Blood Pressure 1: 148/70 Code: 8480-6 BMI: 21.2 Code: 30639-8 Heart Rate 1: 66 bpm Height: 5'11" SpO2: 94% Weight: 152 lbs 02/20/2018 Blood Pressure 1: 134/58 Code: 8480-6 BMI: 20.5 Code: 39537-1 Heart Rate 1: 61 bpm Height: 5'11" SpO2: 92% Weight: 147 lbs 01/30/2018 Blood Pressure 1: 158/68 Code: 8480-6 BMI: 21.5 Code: 31931-9 Heart Rate 1: 71 bpm Height: 5'11" SpO2: 92% Weight: 154 lbs 01/14/2018 Blood Pressure 1: 156/70 Code: 8480-6 Height: Weight: 01/13/2018 Blood Pressure 1: 148/62 Code: 8480-6 BMI: 20.9 Code: 72717-6 Heart Rate 1: 54 bpm Height: 5'11" SpO2: 97% Weight: 150 lbs 11/19/2017 Blood Pressure 1: 150/60 Code: 8480-6 BMI: 21.8 Code: 21998-9 Heart Rate 1: 63 bpm Height: 5'11" SpO2: 98% Weight: 156 lbs 10/02/2017 Blood Pressure 1: 168/60 Code: 8480-6 BMI: 21.9 Code: 61963-6 Heart Rate 1: 52 bpm Height: 5'11" SpO2: 97% Weight: 157 lbs 07/23/2017 Blood Pressure 1: 170/70 Code: 8480-6 BMI: 21.8 Code: 22118-0 Heart Rate 1: 65 bpm Height: 5'11" SpO2: 98% Weight: 156 lbs 04/25/2017 Blood Pressure 1: 138/60 Code: 8480-6 BMI: 21.6 Code: 43813-1 Heart Rate 1: 55 bpm Height: 5'11" SpO2: 93% Weight: 155 lbs 02/19/2017 Blood Pressure 1: 138/64 Code: 8480-6 BMI: 21.3 Code: 82799-2 Heart Rate 1: 52 bpm Height: 5'11" SpO2: 96% Weight: 152 lbs 8 oz 01/21/2017 Blood Pressure 1: 160/68 Code: 8480-6 BMI: 21.3 Code: 70199-6 Heart Rate 1: 62 bpm Height: 5'11" SpO2: 96% Weight: 153 lbs 12/20/2016 Blood Pressure 1: 124/66 Code: 8480-6 BMI: 21.5 Code: 09014-9 Height: 5'11" Weight: 154 lbs 08/23/2016 Blood Pressure 1: 142/52 Code: 8480-6 BMI: 21.2 Code: 52369-1 Heart Rate 1: 54 bpm Height: 5'11" SpO2: 96% Weight: 152 lbs 05/22/2016 Blood Pressure 1: 130/76 Code: 8480-6 BMI: 21.5 Code: 69088-8 Heart Rate 1: 78 bpm Height: 5'11" SpO2: 92% Weight: 154 lbs 02/24/2016 Blood Pressure 1: 128/80 Code: 8480-6 BMI: 21.2 Code: 48388-0 Heart Rate 1: 74 bpm Height: 5'11" SpO2: 96% Weight: 152 lbs 01/27/2016 Blood Pressure 1: 144/60 Code: 8480-6 BMI: 21.2 Code: 06849-6 Heart Rate 1: 74 bpm Height: 5'11" SpO2: 97% Weight: 152 lbs 11/25/2015 Blood Pressure 1: 110/52 Code: 8480-6 BMI: 21.9 Code: 39992-3 Heart Rate 1: 65 bpm Height: 5'11" SpO2: 92% Weight: 157 lbs 07/28/2015 Blood Pressure 1: 138/62 Code: 8480-6 BMI: 21.8 Code: 16968-1 Heart Rate 1: 63 bpm Height: 5'11" SpO2: 91% Weight: 156 lbs 05/26/2015 Blood Pressure 1: 120/58 Code: 8480-6 BMI: 21.5 Code: 66444-2 Heart Rate 1: 99 bpm Height: 5'11" SpO2: 96% Weight: 154 lbs 05/06/2015 Blood Pressure 1: 120/58 Code: 8480-6 BMI: 21.2 Code: 79626-0 Heart Rate 1: 66 bpm Height: 5'11" SpO2: 96% Weight: 152 lbs 04/25/2015 Blood Pressure 1: 136/62 Code: 8480-6 BMI: 21.2 Code: 28277-6 Heart Rate 1: 63 bpm Height: 5'11" SpO2: 97% Weight: 152 lbs 04/12/2015 Blood Pressure 1: 160/58 Code: 8480-6 BMI: 21.6 Code: 00600-2 Heart Rate 1: 62 bpm Height: 5'11" Weight: 155 lbs 03/24/2015 Blood Pressure 1: 138/68 Code: 8480-6 BMI: 22.0 Code: 61701-2 Heart Rate 1: 65 bpm Height: 5'11" SpO2: 96% Weight: 158 lbs 03/07/2015 Blood Pressure 1: 116/52 Code: 8480-6 BMI: 22.2 Code: 10856-0 Heart Rate 1: 64 bpm Height: 5'11" SpO2: 97% Weight: 159 lbs 02/17/2015 Blood Pressure 1: 148/58 Code: 8480-6 BMI: 21.3 Code: 97204-9 Heart Rate 1: 63 bpm Height: 5'11" SpO2: 97% Weight: 153 lbs 12/31/2014 Blood Pressure 1: 100/60 Code: 8480-6 BMI: 21.8 Code: 52059-1 Heart Rate 1: 68 bpm Height: 5'11" Weight: 156 lbs 12/23/2014 Blood Pressure 1: 148/64 Code: 8480-6 BMI: 21.9 Code: 76827-2 Heart Rate 1: 64 bpm Height: 5'11" [...] Encounters Encounter Performer Loca tion Codes Date ([id number]) 50346 EST. 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 P ATIENT, LEVEL III Diagnosis: Orthostatic hypotension[ICD10: I95.1] Diagnosis: Low back pain[ICD10: M54.5] Diagnosis: Unsteadiness on feet[ICD10: R26.81] Karmen Ash MD, [facility] CPT-4: 70866 10/17/2018 ([id number]) 15705 EST. 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 P ATIENT, LEVEL IV Diagnosis: Cellulitis of face[ICD10: L03.211] Diagnosis: Type 2 diabetes mellitus without complications[ICD10: E11.9] Diagnosis: Essential (primary) hypertension[ICD10: I10] Diagnosis: Encounter for immunization[ICD10: Z23] Karmen Ash MD, [facility] CPT-4: 74801 06/06/2018 ([id number]) 73477 EST. 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 P ATIENT, LEVEL III Diagnosis: Low back pain[ICD10: M54.5] Diagnosis: Dysuria[ICD10: R30.0] Karmen Ash MD, [facility] CPT-4: 37724 03/07/2018 ([id number]) 11866 EST. 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 P ATIENT, LEVEL III Diagnosis: Chronic obstructive pulmonary disease with (acute) exacerbation[ICD10: J44.1] Karmen Ash MD, [facility] CPT-4: 53585 01/30/2018 85323 EST. PATIENT, LEVEL II Diagnosis: Insect bite (nonvenomous), left lower leg, initial encounter[ICD10: S80.862A] Karmen Ash MD, [facility] CPT-4: 84466 01/14/2018 ([id number]) 60676 EST. P ATIENT, LEVEL IV Diagnosis: Type 2 diabetes mellitus with hyperglycemia[ICD10: E11.65] Diagnosis: Chronic obstructive pulmonary disease, unspecified[ICD10: J44.9] Diagnosis: Other fatigue[ICD10: R53.83] Karmen Ash MD, [facility] CPT- 4: 80571 01/13/2018 ([id number]) 86180 EST. P ATIENT, LEVEL IV Diagnosis: Type 2 diabetes mellitus with hyperglycemia[ICD10: E11.65] Diagnosis: Vitamin D deficiency, unspecified[ICD10: E55.9] Diagnosis: Essential (primary) hypertension[ICD10: I10] Diagnosis: Abdominal distension (gaseous)[ICD10: R14.0] Diagnosis: Drug induced constipation[ICD10: K59.03] Karmen Ash MD, [facility] CPT-4: 73606 11/19/2017 06678 EST. PATIENT, LEVEL IV Diagnosis: Low back pain[ICD10: M54.5] Diagnosis: Chronic obstructive pulmonary disease, unspecified[ICD10: J44.9] Brunilda Ash MD, [facility] CPT-4: 44667 10/02/2017 ([id number]) 28722 EST. P ATIENT, LEVEL IV Diagnosis: Essential (primary) hypertension[ICD10: I10] Diagnosis: Type 2 diabetes mellitus with hyperglycemia[ICD10: E11.65] Diagnosis: Vitamin D deficiency, unspecified[ICD10: E55.9] Diagnosis: Mixed hyperlipidemia[ICD10: E78.2] Karmen Ash MD, [facility] CPT-4: 77355 07/23/2017 ([id number]) 78898 EST. P ATIENT, LEVEL IV Diagnosis: Essential (primary) hypertension[ICD10: I10] Diagnosis: Type 2 diabetes mellitus with hyperglycemia[ICD10: E11.65] Diagnosis: Chronic obstructive pulmonary disease, unspecified[ICD10: J44.9] Diagnosis: Nicotine dependence, unspecified, uncomplicated[ICD10: F17.200] Diagnosis: Encounter for immunization[ICD10: Z23] Karmen Ash MD, [facility] CPT-4: 14881 04/25/2017 ([id number]) 15116 EST. P ATIENT, LEVEL IV Diagnosis: Type 2 diabetes mellitus with hyperglycemia[ICD10: E11.65] Diagnosis: Essential (primary) hypertension[ICD10: I10] Diagnosis: Anemia, unspecified[ICD10: D64.9] Karmen Ash MD, [facility] CPT- 4: 63624 02/19/2017 ([id number]) 65595 EST. P ATIENT, LEVEL IV Diagnosis: Slow transit constipation[ICD10: K59.01] Diagnosis: Gastro-esophageal reflux disease without esophagitis[ICD10: K21.9] Diagnosis: Essential (primary) hypertension[ICD10: I10] Karmen Ash MD, [facility] CPT-4: 87355 01/21/2017 ([id number]) 52673 EST. P ATIENT, LEVEL IV Diagnosis: Type 2 diabetes mellitus with hyperglycemia[ICD10: E11.65] Diagnosis: Vitamin D deficiency, unspecified[ICD10: E55.9] Diagnosis: Essential (primary) hypertension[ICD10: I10] Diagnosis: Chronic obstructive pulmonary disease, unspecified[ICD10: J44.9] Karmen Ash MD, [facility] CPT-4: 68630 12/20/2016 ([id number]) 98121 EST. P ATIENT, LEVEL IV Diagnosis: Type 2 diabetes mellitus with hyperglycemia[ICD10: E11.65] Diagnosis: Essential (primary) hypertension[ICD10: I10] Diagnosis: Mixed hyperlipidemia[ICD10: E78.2] Diagnosis: Vitamin D deficiency, unspecified[ICD10: E55.9] Karmen Ash MD, [facility] CPT-4: 16698 08/23/2016 ([id number]) 37937 EST. P ATIENT, LEVEL IV Diagnosis: Type 2 diabetes mellitus with hyperglycemia[ICD10: E11.65] Diagnosis: Essential (primary) hypertension[ICD10: I10] Diagnosis: Chronic obstructive pulmonary disease, unspecified[ICD10: J44.9] Karmen Ash MD, [facility] CPT-4: 57721 05/22/2016 ([id number]) 48707 EST. P ATIENT, LEVEL III Diagnosis: Dysuria[ICD10: R30.0] Diagnosis: Essential (primary) hypertension[ICD10: I10] Karmen Ash MD, [facility] CPT-4: 08971 02/24/2016 ([id number]) 37536 EST. P ATIENT, LEVEL IV Diagnosis: Gastro-esophageal reflux disease without esophagitis[ICD10: K21.9] Diagnosis: Slow transit constipation[ICD10: K59.01] Diagnosis: Type 2 diabetes mellitus with hyperglycemia[ICD10: E11.65] Karmen Ash MD, [facility] CPT-4: 28493 01/27/2016 ([id number]) 79097 EST. P ATIENT, LEVEL IV Diagnosis: Essential (primary) hypertension[ICD10: I10] Diagnosis: Type 2 diabetes mellitus with hyperglycemia[ICD10: E11.65] Diagnosis: Vitamin D deficiency, unspecified[ICD10: E55.9] Diagnosis: Chronic obstructive pulmonary disease, unspecified[ICD10: J44.9] Diagnosis: Mixed hyperlipidemia[ICD10: E78.2] Diagnosis: Tobacco use[ICD10: Z72.0] Karmen Ash MD, [facility] CPT- 4: 48193 11/25/2015 ([id number]) 59025 EST. P ATIENT, LEVEL IV Diagnosis: Type 2 diabetes mellitus with hyperglycemia[ICD10: E11.65] Diagnosis: Essential (primary) hypertension[ICD10: I10] Diagnosis: Vitamin D deficiency, unspecified[ICD10: E55.9] Karmen Ash MD, [facility] CPT-4: 99275 07/28/2015 ([id number]) 48689 EST. P ATIENT, LEVEL III Diagnosis: Type 2 diabetes mellitus with hyperglycemia[ICD10: E11.65] Diagnosis: Essential (primary) hypertension[ICD10: I10] Violeta Ash MD, [facility] CPT-4: 66545 05/26/2015 ([id number]) 85252 EST. P ATIENT, LEVEL III Diagnosis: DIABETES TYPE II[ICD9: 250.00] Diagnosis: COPD (chronic obstructive pulmonary disease)[ICD9: 496] Diagnosis: ESSENTIAL HYPERTENSION[ICD9: 401.9] Diagnosis: Cough[ICD9: 786.2] Violeta Ash MD, [facility] CPT-4: 67511 05/06/2015 ([id number]) 10575 EST. P ATIENT, LEVEL III Diagnosis: COPD (chronic obstructive pulmonary disease)[ICD9: 496] Diagnosis: DIABETES TYPE II[ICD9: 250.00] Diagnosis: Muscle ache[ICD9: 729.1] Karmen Ash MD, [facility] CPT- 4: 34470 04/25/2015 ([id number]) 65243 EST. P ATIENT, LEVEL III Diagnosis: ACTINIC KERATOSIS[ICD9: 702.0] Diagnosis: COPD (chronic obstructive pulmonary disease)[ICD9: 496] Diagnosis: DIABETES TYPE II[ICD9: 250.00] Diagnosis: ACUTE URI[ICD9: 465.9] Violeta Ash MD, [facility] CPT-4: 90646 04/12/2015 ([id number]) 60192 EST. P ATIENT, LEVEL III Diagnosis: DIABETES TYPE II[ICD9: 250.00] Violeta Ash MD, [facility] CPT-4: 67566 03/24/2015 ([id number]) 44481 EST. P ATIENT, LEVEL IV Diagnosis: DIABETES TYPE II[ICD9: 250.00] Diagnosis: Hypoglycemia[ICD9: 251.2] Diagnosis: Skin texture changes[ICD9: 782.8] Violeta Ash MD, [facility] CPT-4: 49893 03/07/2015 ([id number]) 99540 EST. P ATIENT, LEVEL IV Diagnosis: COPD (chronic obstructive pulmonary disease)[ICD9: 496] Diagnosis: Fatigue[ICD9: 780.79] Diagnosis: Insulin dependent diabetes mellitus[ICD9: 250.00] Diagnosis: Unsteady gait[ICD9: 781.2] Maame Ash MD, [facility] CPT-4: 77206 02/17/2015 ([id number]) 04247 EST. P ATIENT, LEVEL IV Diagnosis: BPPV (benign paroxysmal positional vertigo)[ICD9: 386.11] Diagnosis: Impacted cerumen[ICD9: 380.4] Diagnosis: ESSENTIAL HYPERTENSION[ICD9: 401.9] Diagnosis: Insulin dependent diabetes mellitus[ICD9: 250.00] Karmen Ash MD, [facility] CPT-4: 81992 12/23/2014 ([id number]) OFFICE [facility] 4 Diagnosis: Insulin dependent diabetes mellitus[ICD9: 250.00] Diagnosis: BPPV (benign paroxysmal positional vertigo)[ICD9: 386.11] Diagnosis: COPD (chronic obstructive pulmonary disease)[ICD9: 496] Diagnosis: Tobacco abuse[ICD9: 305.1] Diagnosis: Osteoarthritis[ICD9: 715.90] Karmen Ash MD, [facility] CPT- 4: 15044 12/09/2014 Plan of Care Planned Activity Notes C odes Status Date Appointment: Injection 01/01/2019 Patient Education: Patient Medication [...] as directed 12/02/2018 Appointment: Karmen Espinal WPtel: [phone] [facility] [place] [address] (30 min) Complex 12/02/2018 Patient Education: Patient Medication Summary Completed 12/02/2018 Patient Education: Diabetes Completed 12/02/2018 Appointment: Injection 11/18/2018 Patient Education: Patient Medication Summary Completed 11/18/2018 Appointment: Injection 11/04/2018 Patient Education: Patient Medication Summary Completed 11/04/2018 Appointment: Karmen Espinal WPtel: [phone] [facility] [place] [address] (30 min) Complex 10/21/2018 Visit Plan: Orthostatic [...] a walker 10/17/2018 Appointment: Karmen Espinal WPtel: [phone] [facility] [place] [address] (30 min) Complex 10/17/2018 Patient Education: Patient [...] to medications. 09/02/2018 Appointment: [phone] (15 min) Moderate 09/02/2018 Patient Education: [...] surrogate. 06/30/2018 Appointment: Karmen Espinal WPtel: [phone] [phone] [place] [address] - Annual Wellness Visit 06/30/2018 Patient Education: [...] pain. 06/06/2018 Appointment: Karmen Espinal WPtel: [phone] [phone] (15 min) Moderate 06/06/2018 Patient Education: [...] 2 months 04/04/2018 Appointment: Karmen Espinal WPtel: [phone] [place] (15 min) Moderate 04/04/2018 Patient Education: Patient Medication Summary Completed 04/04/2018 Care Plan: Cbc With Differential Pending 04/04/2018 Care Plan: Testosterone repeat in 2 months Pending 04/04/2018 Appointment: Karmen Espinal WPtel: [phone] [place] (15 min) Moderate 03/25/2018 Visit Plan: Low back pain -history of kidney stone-UA negative today -increase fluids and call if pain does not resolve or if any worse. 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 01/30/2018 Appointment: Karmen Espinal WPtel: [phone] (15 min) Moderate 01/30/2018 Patient Education: Patient Medication Summary Completed 01/30/2018 Appointment: Karmen Espinal WPtel: [phone] (15 min) Moderate 01/28/2018 Appointment: [place] 01/17/2018 Patient Education: Patient Medication Summary Completed 01/17/2018 Visit Plan: Cellulitis - start oral antibiotics as directed, return to clinic as previously directed, call for acute change in symptoms, worsening redness, warmth, discharge. 01/14/2018 Appointment: Karmen Espinal WPtel: [phone] (10 min) Simple 01/14/2018 Patient Education: [...] less controlled. 01/13/2018 Appointment: Karmen Espinal WPtel: [phone] (15 min) Moderate 01/13/2018 Patient Education: Patient Medication Summary Completed 01/13/2018 Referral: Hugo Villatoro [facility]:[phone] [facility] Patient's informed. Referral info ned monroy. [...] change in blood pressure readings at home. Dwbowgiv-awyevm-onupa to see Dr Villatoro Constipation-start linzess daily 11/19/2017 Appointment: [facility]Ptel[facility] [phone] [phone] (30 min) Complex 11/19/2017 Patient Education: Patient Medication Summary Completed 11/19/2017 Care Plan: Referral Order bloating, nausea SNOMED-CT : 238122581 Pending 11/19/2017 Visit Plan: Low back pain- [...] changes. 10/02/2017 Appointment: Brunilda Maravilla [facility]Ptel[facility] [phone] [facility] [place] (15 min) Moderate 10/02/2017 Patient Education: [...] controlled. 07/23/2017 Appointment: Karm[facility] Espinal [facility]Ptel[facility] [phone] [phone] [place] (30 min) Complex 07/23/2017 Patient Education: [...] history 04/25/2017 Appointment: Karmen Espinal WPtel: [phone] [phone] (30 min) Complex 04/25/2017 Patient Education: [...] readings are starting to become less controlled. Mophte-lomnulp-vgzhf labs 02/19/2017 Appointment: Karmen Espinal WPtel: [phone] [phone] (30 min) Complex 02/19/2017 Patient Education: [...] month 01/21/2017 Appointment: Karmen Espinal WPtel: [phone] (30 min) Complex 01/21/2017 Patient Education: Patient Medication Summary Completed 01/21/2017 Patient Education: Smoking and Tobacco Addiction Completed 01/21/2017 Patient Education: Hypertension Completed 01/21/2017 Care Plan: Referral Order SNOMED-CT : 162341682 Pending 01/21/2017 Visit Plan: Diabetes Mellitus - [...] changes. 12/20/2016 Appointment: Karmen Espinal WPtel: [phone] [phone] (30 min) Complex 12/20/2016 Patient Education: Patient Medication Summary Completed 12/20/2016 Patient Education: Smoking and Tobacco Addiction Completed 12/20/2016 Patient Education: Hypertension Completed 12/20/2016 Appointment: Nav Espinalie WPtel: [phone] [phone] (30 min) Complex 09/06/2016 Visit Plan: [...] deficiency-check vitamin d level 08/23/2016 Appointment: K[facility] Espnial [facility]Ptel[facility] [phone] [phone] (30 min) Complex 08/23/2016 Patient Education: [...] changes. 05/22/2016 Appointment: Karmen Espinal WPtel: [phone] (30 min) Complex 05/22/2016 Patient Education: Patient Medication Summary Completed 05/22/2016 Patient Education: Smoking and Tobacco Addiction Completed 05/22/2016 Care Plan: Cbc With Differential Ordered 05/22/2016 Care Plan: %Hba1C [facility] C : 95761-8 Ordered 05/22/2016 Care Plan: Tsh Ordered 05/22/2016 [...] with update 02/24/2016 Appointment: Karm[facility] Espinal WPtel[facility] [phone] [phone] (30 min) Complex 02/24/2016 Patient Education: [...] regimen. 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 Tvwdgakk-zettpoba-IDYV SIMVASTATIN X 2 WEEKS AND CALL WITH [...] Care Plan: COMPLETE CBC AUTOMATED LOINC : 32760-6 Ordered 03/24/2015 Visit Plan: Diabetes Mellitus - [...] for removal. 03/07/2015 Appointment: [facility] [phone] [facility] (15 min) Moderate 03/07/2015 Patient Education: [...] hearing. The wax was removed by the [facility] ct[facility]er due to the wax being more [...] Care Plan: COMPLETE CBC AUTOMATED LOINC : 80397-0 Ordered 12/23/2014 Visit Plan: BPPV - Benign [...] will check at next appt 12/09/2014 Appointment: Teddy Karmen WPtel: [phone] [phone] [place] ([place]) New Patient 12/09/2014 Patient Education: Patient Medication Summary Completed 12/09/2014 Patient Education: .Amazing charts Parox ysmal positional vertigo Completed 12/09/2014 Patient Education: Smoking and Tobacco Addiction Completed 12/09/2014 Referral: Hugo Villatoro [facility]:[phone] [facility] [place] Referral Appointment Requested Referral: Luis [...] . COPD - chronic problem for this gloriaen t. We have reviewed chronic treatment strategy, [...] readings are starting to become less controlled. Zizvzy-dwnwyay-dedku labs . Cellulitis - start oral antibiotics [...] change in blood pressure readings at home. Sckyvfmq-fwnnyo-dcqnu to see Dr Villatoro Constipation-start linzess daily [...] POTENTIAL SIDE EFFECTS AND WORSENING OF SYMPTOMS. Zlgxwciy-zymgnlqq-HSKW SIMVASTATIN X 2 WEEKS AND CALL WITH [...]
--- OUTSIDE RECORDS SUMMARY | 2020-03-29 08:07 | XMS REPORT | CCD ---
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 Name Role Phone PP Unavailable CCM Unavailable Summary Purpose Interface Exchange Insurance Providers Payer name Policy type / Coverage type Covered alliance party ID Effective Begin Date Effective End Date WPS Medicare Part B Medicare Part B [id number] Unknown Unknown [employer] Medicar e Part B [id number] Unknown Unkn own Family history Father Diagnosis Age At Onset Cancer Unknown Mother Diagnosis Age At Onset Cancer Unknown Social History Social History Element Codes Description Effective Dates Marital status Unknown M arried 12/09/2014 Employment Unknown Retir ed 12/09/[address]: 89554965 Currently smokes tobacco 12/09/2014 Number of years using tobacco Unknown > 50 12/09/2014 Number of cigarettes/day Unknown 30 (Pack and a half) 12/09/[address]: 323649588 Never drinks alcohol 12/09/2014 Allergies, Adverse Reactions, [...] 5 mg-linh taminophen 325 mg tablet RxNorm: 417495 1 Tablet(s) PO Q6-8H as needed 01/14/2019 02/07/2019 Active testosterone cypiona te 200 mg/mL intramuscular oil RxNorm: 8522253 Milliliter(s) IM 01/01/2019 01/01/2019 In active Xanax 0.5 mg tablet RxNorm: 590771 1 Tablet(s) PO TID 12/18/2018 02/15/2019 Active testosterone cypiona te 200 mg/mL intramuscular oil RxNorm: 1129495 Milliliter(s) IM 12/17/2018 12/17/2018 In active hydrocodone 5 mg-linh taminophen 325 mg tablet RxNorm: 539987 1 Tablet(s) PO Q6-8H as needed 12/15/2018 01/08/2019 Inactive testosterone cypiona te 200 mg/mL intramuscular oil RxNorm: 2820737 Milliliter(s) IM 12/02/2018 12/02/2018 In active testosterone cypiona te 200 mg/mL intramuscular oil RxNorm: 4464215 Milliliter(s) IM 11/18/2018 11/18/2018 In active hydrocodone 5 mg-linh taminophen 325 mg tablet RxNorm: 759147 1 Tablet(s) PO Q6-8H as needed 11/13/2018 12/07/2018 Inactive testosterone cypiona te 200 mg/mL intramuscular oil RxNorm: 7638324 1/2 Milliliter(s) IM [id number] 11/04/2018 03/03/2019 Active testosterone cypiona te 200 mg/mL intramuscular oil RxNorm: 0435942 Milliliter(s) IM 11/04/2018 11/04/2018 In active nicotine 21 mg/24 hr daily transdermal patch RxNorm: 767119 1 TD daily 10/31/2018 10/30/2018 In active nicotine 21 mg/24 hr daily transdermal patch RxNorm: 509197 1 TD daily 10/31/2018 11/29/2018 In active meclizine 25 mg tablet RxNorm: 446315 1 Tablet(s) PO Q6 PRN TAKE ONE TABLET BY MOUTH EVERY 6 HOURS NEEDED 10/17/2018 01/14/2019 Inactive hydrocodone 5 mg-linh taminophen 325 mg tablet RxNorm: 516248 1 Tablet(s) PO Q6-8H as needed 10/17/2018 11/10/2018 Inactive metformin 500 mg tablet RxNorm: 305187 Tablet(s) TAKE 1 TABLET BY MOUTH DAILY 10/15/2018 10/09/2019 Ac tive lisinopril 10 mg tablet RxNorm: 211547 TAKE 1 TABLET BY MOUTH TWO TIMES DAILY 10/15/2018 10/09/2019 Ac tive - First Attempt Ref: [id number] testosterone cypiona te 200 mg/mL intramuscular oil RxNorm: 4568430 Milliliter(s) IM 10/14/2018 10/14/2018 In active Xanax 0.5 mg tablet RxNorm: 290514 1 Tablet(s) PO TID 10/03/2018 11/30/2018 Inactive testosterone cypiona te 200 mg/mL intramuscular oil RxNorm: 4816182 1/2 Milliliter(s) IM weekly 10/03/2018 11/03/2018 Inactive testosterone cypiona te 200 mg/mL intramuscular oil RxNorm: 4503348 Milliliter(s) IM 10/03/2018 10/03/2018 In active testosterone cypiona te 200 mg/mL intramuscular oil RxNorm: 3731876 Milliliter(s) IM 09/23/2018 09/23/2018 In active hydrocodone 5 mg-linh taminophen 325 mg tablet RxNorm: 211014 1 Tablet(s) PO Q6-8H as needed 09/22/2018 10/16/2018 Inactive testosterone cypiona te 200 mg/mL intramuscular oil RxNorm: 8723126 1/2 Milliliter(s) IM 09/02/2018 09/02/2018 Inactive testosterone enantha te 200 mg/mL intramuscular oil RxNorm: 784294 Milliliter(s) IM 08/21/2018 08/21/2018 In active hydrocodone 5 mg-linh taminophen 325 mg tablet RxNorm: 910033 1 Tablet(s) PO Q6-8H as needed 08/21/2018 09/14/2018 Inactive testosterone cypiona te 200 mg/mL intramuscular oil RxNorm: 5461796 Milliliter(s) IM 08/08/2018 08/08/2018 In active testosterone cypiona te 200 mg/mL intramuscular oil RxNorm: 2748848 1/2 Milliliter(s) IM 07/28/2018 07/28/2018 Inactive hydrocodone 5 mg-linh taminophen 325 mg tablet RxNorm: 845098 1 Tablet(s) PO Q6-8H as needed 07/21/2018 08/14/2018 Inactive testosterone cypiona te 200 mg/mL intramuscular oil RxNorm: 318048 Milliliter(s) IM 07/16/2018 07/16/2018 In active testosterone cypiona te 200 mg/mL intramuscular oil RxNorm: 894529 Milliliter(s) IM 07/02/2018 07/02/2018 In active Xanax 0.5 mg tablet RxNorm: 299376 1 Tablet(s) PO TID 06/27/2018 08/24/2018 Inactive testosterone cypiona te 200 mg/mL intramuscular oil RxNorm: 715925 Milliliter(s) IM 06/24/2018 06/24/2018 In active hydrocodone 5 mg-linh taminophen 325 mg tablet RxNorm: 825370 1 Tablet(s) PO Q6-8H as needed 06/23/2018 07/17/2018 Inactive testosterone cypiona te 200 mg/mL intramuscular oil RxNorm: 386648 Milliliter(s) IM 06/13/2018 06/13/2018 In active testosterone cypiona te 200 mg/mL intramuscular oil RxNorm: 661671 Milliliter(s) IM 06/05/2018 06/05/2018 In active testosterone cypiona te 200 mg/mL intramuscular oil RxNorm: 8360358 1/2 Milliliter(s) IM weekly 05/30/2018 09/26/2018 Inactive testosterone cypiona te 200 mg/mL intramuscular oil RxNorm: 285548 Milliliter(s) IM 05/30/2018 05/30/2018 In active testosterone cypiona te 200 mg/mL intramuscular oil RxNorm: 246085 Milliliter(s) IM 05/22/2018 05/22/2018 In active hydrocodone 5 mg-linh taminophen 325 mg tablet RxNorm: 417134 1 Tablet(s) PO Q6-8H as needed 05/20/2018 06/13/2018 Inactive testosterone cypiona te 200 mg/mL intramuscular oil RxNorm: 085182 1/2 Milliliter(s) IM 05/12/2018 05/12/2018 Inactive testosterone cypiona te 200 mg/mL intramuscular oil RxNorm: 166404 Milliliter(s) IM 05/02/2018 05/02/2018 In active testosterone cypiona te 200 mg/mL intramuscular oil RxNorm: 429421 1/2 Milliliter(s) IM weekly 04/24/2018 05/29/2018 Inactive testosterone cypiona te 200 mg/mL intramuscular oil RxNorm: 995631 0.5 Milliliter(s) IM 04/24/2018 04/24/2018 Inactive hydrocodone 5 mg-linh taminophen 325 mg tablet RxNorm: 190957 1 Tablet(s) PO Q6-8H as needed 04/22/2018 05/16/2018 Inactive testosterone cypiona te 200 mg/mL intramuscular oil RxNorm: 789608 1/2 Milliliter(s) IM 04/17/2018 04/17/2018 Inactive testosterone cypiona te 200 mg/mL intramuscular oil RxNorm: 175697 1/2 Milliliter(s) IM weekly 04/16/2018 04/23/2018 Inactive Jardiance 10 mg tablet RxNorm: 5795429 1 Tablet(s) PO daily 04/04/2018 12/29/2018 Inactive Protonix 40 mg table t,delayed release RxNorm: 317403 1 Tablet(s) PO daily TAKE 1 TABLET BY MOUTH DAILY 04/04/2018 03/29/2019 Active - Ref: [id number] testosterone cypiona te 200 mg/mL intramuscular oil RxNorm: 518332 1 Milliliter(s) IM monthly 04/04/2018 04/15/2018 Inactive hydrocodone 5 mg-linh taminophen 325 mg tablet RxNorm: 614526 1 Tablet(s) PO Q6-8H as needed 03/19/2018 04/12/2018 Inactive Flomax 0.4 mg capsule RxNorm: 248344 1 Capsule(s) PO daily 03/10/2018 03/04/2019 Active Urecholine 25 mg tablet RxNorm: 565978 1 Tablet(s) PO BID 03/10/2018 07/07/2018 Inactive ketorolac 60 mg/2 mL intramuscular solution RxNorm: 5898016 Milliliter(s) IM 03/07/2018 03/07/2018 In active metformin 500 mg tablet RxNorm: 705243 Tablet(s) TAKE 1 TABLET BY MOUTH DAILY 02/20/2018 02/13/2019 Ac tive 1 q am and 1/2 tab q pm hydrocodone 5 mg-linh taminophen 325 mg tablet RxNorm: 683737 1 Tablet(s) PO Q6-8H as needed 02/20/2018 03/16/2018 Inactive Kenalog 40 mg/mL bartolome pension for injection RxNorm: 9837045 1.5 Milliliter(s) In j 01/30/2018 01/30/2018 In active hydrocodone 5 mg-linh taminophen 325 mg tablet RxNorm: 172381 1 Tablet(s) PO Q6-8H as needed 01/23/2018 02/16/2018 Inactive Urecholine 25 mg tablet RxNorm: 541195 1 Tablet(s) PO BID 01/22/2018 03/09/2018 Inactive Flomax 0.4 mg capsule RxNorm: 267606 1 Capsule(s) PO daily 01/22/2018 03/09/2018 Inactive Flomax 0.4 mg capsule RxNorm: 769007 1 Capsule(s) PO daily 01/22/2018 01/21/2018 Inactive Urecholine 25 mg tablet RxNorm: 425282 1 Tablet(s) PO BID 01/22/2018 01/21/2018 Inactive testosterone cypiona te 200 mg/mL intramuscular oil RxNorm: 758531 Milliliter(s) IM 01/17/2018 01/17/2018 In active testosterone cypiona te 200 mg/mL intramuscular oil RxNorm: 692881 1 Milliliter(s) IM monthly 01/17/2018 04/03/2018 Inactive doxycycline hyclate 100 mg tablet RxNorm: 434343 1 Tablet(s) PO BID 01/14/2018 01/23/2018 Inactive lisinopril 10 mg tablet RxNorm: 925187 TAKE 1 TABLET BY MOUTH TWO TIMES DAILY 01/14/2018 10/14/2018 In active - First Attempt Ref: [id number] nystatin 100,000 uni t/mL oral suspension RxNorm: 682547 4 Milliliter(s) PO QI D Swish and swallow 01/08/2018 01/07/2018 Inactive nystatin 100,000 uni t/mL oral suspension RxNorm: 857906 4 Milliliter(s) PO QI D Swish and swallow 01/08/2018 01/12/2018 Inactive Xanax 0.5 mg tablet RxNorm: 696240 1 Tablet(s) PO TID 01/08/2018 12/23/2018 Inactive simvastatin 40 mg ta blet RxNorm: 340459 TAKE 1 TABLET BY MOUT H DAILY AT BEDTIME 12/30/2017 12/24/2018 In active - First Attempt Ref: [id number] metformin 500 mg tablet RxNorm: 384824 TAKE 1 TABLET BY MOUTH DAILY 12/30/2017 02/19/2018 Inactive - First Attempt Ref: [id number] hydrocodone 5 mg-linh taminophen 325 mg tablet RxNorm: 762009 1 Tablet(s) PO Q6-8H as needed 12/25/2017 01/18/2018 Inactive Protonix 40 mg table t,delayed release RxNorm: 844476 Tablet(s) TAKE 1 TABL ET BY MOUTH DAILY 11/20/2017 04/03/2018 Inactive - Ref: [id number] Linzess 72 mcg capsule RxNorm: 8945565 1 Capsule(s) PO daily 11/19/2017 No Stop Date Active hydrocodone 5 mg-linh taminophen 325 mg tablet RxNorm: 127790 1 Tablet(s) PO Q6-8H as needed 11/19/2017 12/13/2017 Inactive hydrocodone 5 mg-linh taminophen 325 mg tablet RxNorm: 909539 1 Tablet(s) PO Q6-8H as needed 10/28/2017 11/18/2017 Inactive Xanax 0.5 mg tablet RxNorm: 162764 1 Tablet(s) PO TID 10/25/2017 12/22/2017 Inactive Xanax 0.5 mg tablet RxNorm: 088476 TAKE ONE TABLET BY MOUTH THREE TIMES A D AY 10/24/2017 12/01/2018 In active hydrocodone 5 mg-lihn taminophen 325 mg tablet RxNorm: 734722 1 Tablet(s) PO Q6-8H as needed 09/30/2017 10/24/2017 Inactive Protonix 40 mg table t,delayed release RxNorm: 198439 TAKE 1 TABLET BY MOUT H DAILY 09/16/2017 11/19/2017 In active - Ref: [id number] Yovana Perkins 300 unit/mL (1.5 mL) subcutaneous insulin pen RxNorm: 1319333 35 Unit(s) SQ QHS 08/30/2017 No Stop Date Active dosage increase hydrocodone 5 mg-linh taminophen 325 mg tablet RxNorm: 864699 1 Tablet(s) PO Q6-8H as needed 08/28/2017 09/29/2017 Inactive hydrocodone 5 mg-linh taminophen 325 mg tablet RxNorm: 072802 1 Tablet(s) PO Q6-8H as needed 07/23/2017 08/24/2017 Inactive lisinopril 10 mg tablet RxNorm: 788551 1 Tablet(s) PO BID Take 1 tablet by mout h daily 07/23/2017 01/13/2018 Inactive hydrocodone 5 mg-linh taminophen 325 mg tablet RxNorm: 526396 1 Tablet(s) PO Q6-8H as needed 06/27/2017 07/22/2017 Inactive Xanax 0.5 mg tablet RxNorm: 923307 1 Tablet(s) PO TID 06/18/2017 10/25/2017 Inactive hydrocodone 5 mg-linh taminophen 325 mg tablet RxNorm: 429281 1 Tablet(s) PO Q6-8H as needed 05/27/2017 06/26/2017 Inactive Levaquin 500 mg tablet RxNorm: 217646 1 Tablet(s) PO daily 05/24/2017 05/23/2017 Inactive Levaquin 500 mg tablet RxNorm: 523709 1 Tablet(s) PO daily 05/24/2017 05/30/2017 Inactive Protonix 40 mg table t,delayed release RxNorm: 731288 Take 1 tablet by mout h daily 04/29/2017 09/15/2017 In active - Ref: [id number] hydrocodone 5 mg-linh taminophen 325 mg tablet RxNorm: 938252 1 Tablet(s) PO Q6-8H as needed 04/25/2017 05/26/2017 Inactive metformin 500 mg tablet RxNorm: 434894 Take 1 tablet by mouth daily 04/08/2017 12/29/2017 Inactive - First Attempt Ref: [id number] hydrocodone 5 mg-linh taminophen 325 mg tablet RxNorm: 229929 1 Tablet(s) PO Q6-8H as needed 03/27/2017 04/24/2017 Inactive hydrocodone 5 mg-linh taminophen 325 mg tablet RxNorm: 051934 1 Tablet(s) PO Q6-8H as needed 02/25/2017 03/26/2017 Inactive Protonix 40 mg table t,delayed release RxNorm: 079166 Tablet(s) Take 1 tabl et by mouth BID 02/25/2017 04/28/2017 Inactive Protonix 40 mg table t,delayed release RxNorm: 386354 Tablet(s) Take 1 tabl et by mouth BID 02/19/2017 02/18/2017 Inactive Protonix 40 mg table t,delayed release RxNorm: 766769 Tablet(s) Take 1 tabl et by mouth BID 02/19/2017 02/24/2017 Inactive lisinopril 10 mg tablet RxNorm: 421592 Take 1 tablet by mouth daily 01/29/2017 07/22/2017 Inactive - First Attempt Ref: [id number] hydrocodone 5 mg-linh taminophen 325 mg tablet RxNorm: 961562 1 Tablet(s) PO Q6-8H as needed 01/25/2017 02/24/2017 Inactive simvastatin 40 mg ta blet RxNorm: 043472 Tablet(s) Take 1 tabl et by mouth daily at bedtime 01/03/2017 12/28/2017 Inactive lisinopril 10 mg tablet RxNorm: 368832 Tablet(s) Take 1 tablet by mouth daily 01/03/2017 01/28/2017 In active Protonix 40 mg table t,delayed release RxNorm: 498417 Tablet(s) Take 1 tabl et by mouth daily 12/28/2016 02/18/2017 Inactive hydrocodone 5 mg-linh taminophen 325 mg tablet RxNorm: 524669 1 Tablet(s) PO Q6-8H as needed 12/26/2016 01/24/2017 Inactive Xanax 0.5 mg tablet RxNorm: 422216 1 Tablet(s) PO TID 12/12/2016 03/11/2017 Inactive simvastatin 40 mg ta blet RxNorm: 620722 Tablet(s) Take 1 tabl et by mouth daily at bedtime 11/30/2016 01/02/2017 Inactive simvastatin 40 mg ta blet RxNorm: 229465 Take 1 tablet by mout h daily at bedtime 11/29/2016 11/29/2016 In active - First Attempt Ref: [id number] Protonix 40 mg table t,delayed release RxNorm: 785113 Take 1 tablet by mout h daily 11/27/2016 12/27/2016 In active - First Attempt Ref: [id number] hydrocodone 5 mg-linh taminophen 325 mg tablet RxNorm: 081225 1 Tablet(s) PO Q6-8H as needed 11/26/2016 12/25/2016 Inactive hydrocodone 5 mg-linh taminophen 325 mg tablet RxNorm: 718637 1 Tablet(s) PO Q8 as needed 10/24/2016 11/25/2016 Inactive Xanax 0.5 mg tablet RxNorm: 253377 1 Tablet(s) PO TID 10/09/2016 12/25/2016 Inactive hydrocodone 5 mg-linh taminophen 325 mg tablet RxNorm: 560035 1 Tablet(s) PO Q8 as needed 09/27/2016 10/23/2016 Inactive lisinopril 10 mg tablet RxNorm: 608007 Take 1 tablet by mouth daily 09/25/2016 01/02/2017 Inactive - First Attempt Ref: [id number] Vitamin D2 50,000 un it capsule RxNorm: 898370 1 Capsule(s) PO QW 09/06/2016 12/01/2018 Inactive hydrocodone 5 mg-linh taminophen 325 mg tablet RxNorm: 130588 1 Tablet(s) PO Q8 as needed 08/28/2016 09/26/2016 Inactive Touanuj SoloStar 300 unit/mL (1.5 mL) subcutaneous insulin pen RxNorm: 7940592 25 Unit(s) SQ QHS 08/23/2016 08/29/2017 Inactive dosage increase hydrocodone 5 mg-linh taminophen 325 mg tablet RxNorm: 773868 1 Tablet(s) PO Q8 as needed 07/26/2016 08/27/2016 Inactive Protonix 40 mg table t,delayed release RxNorm: 393710 Take 1 tablet by mout h daily 07/24/2016 11/26/2016 In active - First Attempt Ref: [id number] hydrocodone 5 mg-linh taminophen 325 mg tablet RxNorm: 977740 1 Tablet(s) PO Q8 as needed 06/19/2016 07/21/2016 Inactive Yovana WheelerMeirar 300 unit/mL (1.5 mL) subcutaneous insulin pen RxNorm: 3948077 32 Unit(s) SQ QHS 05/30/2016 08/22/2016 Inactive dosage increase hydrocodone 5 mg-linh taminophen 325 mg tablet RxNorm: 780979 1 Tablet(s) PO Q8 as needed 05/22/2016 06/18/2016 Inactive hydrocodone 5 mg-linh taminophen 325 mg tablet RxNorm: 280282 1 Tablet(s) PO Q8 as needed 04/18/2016 05/17/2016 Inactive Protonix 40 mg table t,delayed release RxNorm: 083565 Take 1 tablet by mout h daily 04/05/2016 07/03/2016 In active - Ref: [id number] metformin 500 mg tablet RxNorm: 541309 Take 1 tablet by mouth daily 04/04/2016 07/02/2016 Inactive - Ref: [id number] Xanax 0.5 mg tablet RxNorm: 510815 1 Tablet(s) PO TID 03/30/2016 09/25/2016 Inactive Xanax 0.5 mg tablet RxNorm: 844457 1 Tablet(s) PO TID 03/23/2016 12/25/2016 Inactive hydrocodone 5 mg-linh taminophen 325 mg tablet RxNorm: 427277 1 Tablet(s) PO Q8 as needed 03/06/2016 04/04/2016 Inactive Cipro 500 mg tablet RxNorm: 536597 1 Tablet(s) PO BID 02/24/2016 03/04/2016 Inactive Miralax 17 gram oral powder packet RxNorm: 264632 1 packet PO every oth er day 01/27/2016 No Stop Date Active hydrocodone 5 mg-linh taminophen 325 mg tablet RxNorm: 889223 1 Tablet(s) PO Q8 as needed 01/27/2016 02/25/2016 Inactive lisinopril 10 mg tablet RxNorm: 710475 1 Tablet(s) PO daily 01/12/2016 09/24/2016 Inactive simvastatin 40 mg ta blet RxNorm: 642738 1 Tablet(s) PO QHS 01/12/2016 11/28/2016 Inactive simvastatin 40 mg ta blet RxNorm: 992693 1 Tablet(s) PO QHS 01/11/2016 01/11/2016 Inactive lisinopril 10 mg tablet RxNorm: 933631 1 Tablet(s) PO daily 01/06/2016 01/11/2016 Inactive simvastatin 40 mg ta blet RxNorm: 366191 1 Tablet(s) PO daily 12/28/2015 01/10/2016 Inactive hydrocodone 5 mg-linh taminophen 325 mg tablet RxNorm: 561080 1 Tablet(s) PO Q8 as needed 12/27/2015 01/26/2016 Inactive Xanax 0.5 mg tablet RxNorm: 291946 1 Tablet(s) PO TID 11/30/2015 03/29/2016 Inactive Toujeo SoloStar 300 unit/mL (1.5 mL) subcutaneous insulin pen RxNorm: 9108091 30 Unit(s) SQ QHS 11/25/2015 05/29/2016 Inactive dosage increase meclizine 25 mg tablet RxNorm: 471821 1 Tablet(s) PO Q6 PRN TAKE ONE TABLET BY MOUTH EVERY 6 HOURS NEEDED 11/25/2015 02/22/2016 Inactive omeprazole 20 mg cap jacquelyn,delayed release RxNorm: 699649 1 Capsule(s) PO daily 10/06/2015 01/26/2016 In active Toujeo SoloStar 300 unit/mL (1.5 mL) subcutaneous insulin pen RxNorm: 3410554 35 Unit(s) SQ QHS 08/02/2015 11/24/2015 Inactive dosage increase Vitamin D2 50,000 un it capsule RxNorm: 484576 1 Capsule(s) PO QW 08/02/2015 09/05/2016 Inactive hydrocodone 5 mg-linh taminophen 325 mg tablet RxNorm: 339933 1 Tablet(s) PO Q8 as needed 07/11/2015 12/26/2015 Inactive Xanax 0.5 mg tablet RxNorm: 836530 1 Tablet(s) PO TID 06/30/2015 06/29/2015 Inactive Xanax 0.5 mg tablet RxNorm: 495311 1 Tablet(s) PO TID 06/30/2015 12/25/2015 Inactive hydrocodone 5 mg-linh taminophen 325 mg tablet RxNorm: 343587 1 Tablet(s) PO Q8 as needed 05/06/2015 07/10/2015 Inactive Symbicort 160 mcg-4. 5 mcg/actuation HFA aerosol inhaler RxNorm: 0302881 INH 04/25/2015 No Stop Date Active Levemir FlexTouch 10 0 unit/mL (3 mL) subcutaneous insulin pen RxNorm: 753040 30 Unit(s) SQ QHS 04/25/2015 11/24/2015 Inactive prednisone 20 mg tablet RxNorm: 918788 1 Tablet(s) PO BID 04/25/2015 04/29/2015 Inactive metformin 500 mg tablet RxNorm: 187664 1 Tablet(s) PO daily 04/25/2015 04/03/2016 Inactive amoxicillin 500 mg c apsule RxNorm: 752186 1 Capsule(s) PO TID 04/14/2015 04/13/2015 Inactive amoxicillin 500 mg c apsule RxNorm: 768998 1 Capsule(s) PO TID a nd recommend probiotic tid (otc) 04/14/2015 04/20/2015 Inactive Kenalog 40 mg/mL bartolome pension for injection RxNorm: 7412201 Milliliter(s) Inj 04/12/2015 04/12/2015 In active hydrocodone 5 mg-linh taminophen 325 mg tablet RxNorm: 570538 1 Tablet(s) PO Q8 as needed 03/30/2015 05/05/2015 Inactive Lantus 100 unit/mL s ubcutaneous solution RxNorm: 044988 25 Unit(s) SQ QPM 03/24/2015 04/25/2015 In active meclizine 25 mg tablet RxNorm: 086064 Tablet(s) TAKE ONE TABLET BY MOUTH EVERY 6 HOURS NEEDED 03/08/2015 04/06/2015 Inactive meclizine 25 mg tablet RxNorm: 157958 TAKE ONE TABLET BY MOUTH EVERY 6 HOURS A S NEEDED 02/25/2015 03/03/2015 Inactive Lantus 100 unit/mL s ubcutaneous solution RxNorm: 446002 20 Unit(s) SQ QPM 02/23/2015 03/23/2015 In active Lantus 100 unit/mL s ubcutaneous solution RxNorm: 235665 25 Unit(s) SQ QPM 02/23/2015 02/22/2015 In active hydrocodone 5 mg-linh taminophen 325 mg tablet RxNorm: 937965 1 Tablet(s) PO Q8 as needed 02/17/2015 03/29/2015 Inactive Xanax 0.5 mg tablet RxNorm: 177430 1 Tablet(s) PO TID 02/03/2015 06/29/2015 Inactive Lantus 100 unit/mL s ubcutaneous solution RxNorm: 724244 20 Unit(s) SQ QPM 12/29/2014 02/22/2015 In active Phenergan 12.5 mg re ctal suppository RxNorm: 111309 1 Suppository RTL Q6 PRN 12/23/2014 No Stop Date Active nausea Kenalog 40 mg/mL bartolome pension for injection RxNorm: 7455984 Milliliter(s) Inj 12/23/2014 12/23/2014 In active prednisone 20 mg tablet RxNorm: 438080 2 Tablet(s) PO daily 12/13/2014 12/17/2014 Inactive prednisone 20 mg tablet RxNorm: 969688 2 Tablet(s) PO daily 12/13/2014 12/12/2014 Inactive meclizine 25 mg tablet RxNorm: 868846 1 Tablet(s) PO Q6 PRN 12/09/2014 02/24/2015 Inactive hydrocodone 5 mg-linh taminophen 325 mg tablet RxNorm: 808860 1 Tablet(s) PO Q8 as needed 12/09/2014 02/16/2015 Inactive Vitamin B-12 1,000 m cg/mL oral drops RxNorm: 7854272 1 Milliliter(s) PO d aily No Start Date Active Alphagan P 0.1 % eye drops RxNorm: 733268 1 Drop(s) OPH BID No Start Date Active aspirin 325 mg table t,delayed release RxNorm: 974233 1 Tablet(s) PO daily No Start Date Active Tricor 145 mg tablet RxNorm: 911054 1 Tablet(s) PO daily No Start Date Active vitamin [id number] B1 oral liquid RxNorm: 1,000 Microgram(s) PO daily No Start Date Active atenolol 50 mg tablet RxNorm: 839424 1 Tablet(s) PO daily No Start Date Active Protonix 40 mg table t,delayed release RxNorm: 280408 1 Tablet(s) PO daily No Start Date 04/04/2016 Inactive glipizide 10 mg tablet RxNorm: 402624 1 Tablet(s) PO BID No Start Date 03/22/2015 Inactive Lantus 100 unit/mL s ubcutaneous solution RxNorm: 168046 15 Unit(s) SQ QPM No Start Date 12/28/2014 Inactive lisinopril 10 mg tablet RxNorm: 991187 1 Tablet(s) PO daily No Start Date 01/05/2016 Inactive Vitamin D2 50,000 un it capsule RxNorm: 264403 1 Capsule(s) PO QW No Start Date 08/01/2015 Inactive Toujeo SoloStar 300 unit/mL (1.5 mL) subcutaneous insulin pen RxNorm: 8698190 30 Unit(s) SQ QHS No Start Date 08/01/2015 Inactive simvastatin 40 mg ta blet RxNorm: 998783 1 Tablet(s) PO daily No Start Date 12/27/2015 Inactive testosterone cypiona te 200 mg/mL intramuscular oil RxNorm: 810641 1 Milliliter(s) IM monthly No Start Date 01/16/2018 Inactive hydrocodone 5 mg-linh taminophen 325 mg tablet RxNorm: 804134 1 Tablet(s) PO Q8 as needed No Start Date 12/08/2014 Inactive metformin 500 mg tablet RxNorm: 508126 1 Tablet(s) PO daily No Start Date 04/24/2015 Inactive omeprazole 20 mg cap jacquelyn,delayed release RxNorm: 750341 1 Capsule(s) PO daily No Start Date 10/05/2015 Inactive Flomax 0.4 mg capsule RxNorm: 275914 1 Capsule(s) PO daily No Start Date 03/23/2015 Inactive Medication Administered Medication Codes Instruc tions Start Date Status testosterone cypionate 200 mg/mL intramuscular oil RxNorm: 6403788 Milliliter 01/01/2019 No longer Active testosterone cypionate 200 mg/mL intramuscular oil RxNorm: 5796585 Milliliter 12/17/2018 No longer Active testosterone cypionate 200 mg/mL intramuscular oil RxNorm: 2302553 Milliliter 12/02/2018 No longer Active testosterone cypionate 200 mg/mL intramuscular oil RxNorm: 6489109 Milliliter 11/18/2018 No longer Active testosterone cypionate 200 mg/mL intramuscular oil RxNorm: 7386992 Milliliter 11/04/2018 No longer Active testosterone cypionate 200 mg/mL intramuscular oil RxNorm: 8622168 Milliliter 10/14/2018 No longer Active testosterone cypionate 200 mg/mL intramuscular oil RxNorm: 7268099 Milliliter 10/03/2018 No longer Active testosterone cypionate 200 mg/mL intramuscular oil RxNorm: 4780033 Milliliter 09/23/2018 No longer Active testosterone cypionate 200 mg/mL intramuscular oil RxNorm: 7588755 /2Milliliter 09/02/2018 No longer Active testosterone enanthate 200 mg/mL intramuscular oil RxNorm: 369286 Milliliter 08/21/2018 No longer Active testosterone cypionate 200 mg/mL intramuscular oil RxNorm: 2183108 Milliliter 08/08/2018 No longer Active testosterone cypionate 200 mg/mL intramuscular oil RxNorm: 6725402 /2Milliliter 07/28/2018 No longer Active testosterone cypionate 200 mg/mL intramuscular oil RxNorm: 705448 Milliliter 07/16/2018 No longer Active testosterone cypionate 200 mg/mL intramuscular oil RxNorm: 408277 Milliliter 07/02/2018 No longer Active testosterone cypionate 200 mg/mL intramuscular oil RxNorm: 736055 Milliliter 06/24/2018 No longer Active testosterone cypionate 200 mg/mL intramuscular oil RxNorm: 599117 Milliliter 06/13/2018 No longer Active testosterone cypionate 200 mg/mL intramuscular oil RxNorm: 178014 Milliliter 06/05/2018 No longer Active testosterone cypionate 200 mg/mL intramuscular oil RxNorm: 755643 Milliliter 05/30/2018 No longer Active testosterone cypionate 200 mg/mL intramuscular oil RxNorm: 175111 [facility] 05/22/2018 No longer Active testosterone cypionate 200 mg/mL intramuscular oil RxNorm: 936267 /2Milliliter 05/12/2018 No longer Active testosterone cypionate 200 mg/mL intramuscular oil RxNorm: 107318 [facility] 05/02/2018 No longer Active testosterone cypionate 200 mg/mL intramuscular oil RxNorm: 143755 0.5Milliliter 04/24/2018 No longer Active testosterone cypionate 200 mg/mL intramuscular oil RxNorm: 420577 1/2[facility]iliter 04/17/2018 No longer Active ketorolac 60 mg/2 mL intramuscular solution RxNorm: 4795051 [facility] 03/07/2018 No longer Active Kenalog 40 mg/mL suspension for injection RxNorm: 5670294 1.5Milliliter 01/30/2018 No longer Active testosterone cypionate 200 mg/mL intramuscular oil RxNorm: 598603 [facility] 01/17/2018 No longer Active Kenalog 40 mg/mL suspension for injection RxNorm: 5045369 [facility]il[facility] 04/12/2015 No longer Active Kenalog 40 mg/mL suspension for injection RxNorm: 4423025 [facility] 12/23/2014 No longer Active Immunizations Vaccine [...] 33.4 pg 12/02/2018 Cbc With Differential Ord2 [place]% 8.0 % 12/02/2018 Cbc With Differential Ord2 [...] 2.13 K/ul 12/02/2018 Cbc With Differential Ord2 [place] ABS# 0.6 K/ul 12/02/2018 Cbc With Differential Ord2 [place] ABS# 0.4 K/ul 12/02/2018 Cbc With Differential Ord2 Baso ABS# 0.0 K/ul 12/02/2018 Testosterone Nni680 Testo 213.5 ng/dL 12/02/2018 A1C Frequency Zpe459 A1CF 63517-0 Last A1C performed at [facility] [place] on: 201812/02/2018 Testosterone Efo097 Testo 669.0 ng/dL 09/08/2018 %Hba1C Fqc810 % HbA1c 65583-4 7.4 % 09/08/2018 %Hba1C Fmb475 Gluc Ave 166 mg/dL 09/08/2018 Lipid Ord30 CHOL 114 mg/dL 09/08/2018 Lipid Ord30 HDL 28.0 mg/dl 09/08/2018 Lipid Ord30 TRIG 154 mg/dL 09/08/2018 Lipid Ord30 LDL 55 mg/dL 09/08/2018 Lipid Ord30 C/HDL 4.1 Ratio 09/08/2018 Comp Metabolic Hmz265 NA 137 mEq/L 09/08/2018 Comp Metabolic Vet724 K 4.3 mEq/L 09/08/2018 Comp Metabolic Quv622 CL 100 mEq/L 09/08/2018 Comp Metabolic Ynu773 CO2 27.0 mEq/L 09/08/2018 Comp Metabolic Krk515 AN ION GAP 14 09/08/2018 Comp Metabolic Won832 GL UCOSE 85 mg/dL 09/08/2018 Comp Metabolic Wiv871 Cr eat 1.1 mg/dL 09/08/2018 Comp Metabolic Hoc747 eG FR 70 ml/min/1.73m2 09/08 Comp Metabolic Rjq841 BUN 11 mg/dL 09/08/2018 Comp Metabolic Bdw690 B/ C Ratio 10.3 Ratio 09/08/2018 Comp Metabolic Fue311 CA LCIUM 9.2 mg/dL 09/08/2018 Comp Metabolic Imi064 AL K PHOS 65 U/L 09/08/2018 Comp Metabolic Xyv670 T(SGOT) 16 U/L 09/08/2018 Comp Metabolic Fey907 AL T(SGPT) 14 U/L 09/08/2018 Comp Metabolic Wro851 BI LI T 0.6 mg/dL 09/08/2018 Comp Metabolic Oyd077 AL BUMIN 4.0 g/dL 09/08/2018 Comp Metabolic Kwi819 TP RO 6.6 g/dL 09/08/2018 Comp Metabolic Zri552 GL OB 2.6 g/dL 09/08/2018 Comp Metabolic Kda757 A/ G Ratio 1.6 Ratio 09/08/2018 Comp Metabolic Ykc790 Os mo 272 mOsmo 09/08/2018 Vitamin D 25 Oh Ozy1523 VITAMIN D, 25 HYDROXY 37.17 ng/mL 09/08/2018 [...] 33.3 pg 09/08/2018 Cbc With Differential Ord2 [place]% 8.1 % 09/08/2018 Cbc With Differential Ord2 [...] 2.44 K/ul 09/08/2018 Cbc With Differential Ord2 [place] ABS# 0.6 K/ul 09/08/2018 Cbc With Differential Ord2 Eos ABS# 0.3 K/ul 09/08/2018 Cbc With Differential Ord2 Baso ABS# 0.0 K/ul 09/08/2018 Tsh Ord6 TSH (3rd IS) 2.72 uIU/mL 09/08/2018 Comp Metabolic Jvs200 NA 139 mEq/L 04/01/2018 Comp Metabolic Sxy324 K 4.2 mEq/L 04/01/2018 Comp Metabolic Gnz051 CL 102 mEq/L 04/01/2018 Comp Metabolic Gih116 CO2 29.0 mEq/L 04/01/2018 Comp Metabolic Azl100 AN ION GAP 12 04/01/2018 Comp Metabolic Bhr626 GL UCOSE 87 mg/dL 04/01/2018 Comp Metabolic Mmf834 Cr eat 1.1 mg/dL 04/01/2018 Comp Metabolic Sqm154 eG FR 70 ml/min/1.73m2 04/01 Comp Metabolic Mis569 BUN 21 mg/dL 04/01/2018 Comp Metabolic Hfz899 B/ C Ratio 19.4 Ratio 04/01/2018 Comp Metabolic Sms899 CA LCIUM 9.1 mg/dL 04/01/2018 Comp Metabolic Jlc277 AL K PHOS 60 U/L 04/01/2018 Comp Metabolic Mcy815 T(SGOT) 15 U/L 04/01/2018 Comp Metabolic Hnm204 AL T(SGPT) 18 U/L 04/01/2018 Comp Metabolic Xls541 BI LI T 0.4 mg/dL 04/01/2018 Comp Metabolic Rrb881 AL BUMIN 4.0 g/dL 04/01/2018 Comp Metabolic Mjs495 TP RO 6.5 g/dL 04/01/2018 Comp Metabolic Usa055 GL OB 2.5 g/dL 04/01/2018 Comp Metabolic Edu935 A/ G Ratio 1.6 Ratio 04/01/2018 Comp Metabolic Ldx066 Os mo 280 mOsmo 04/01/2018 Lipid Ord30 [...] 34.3 pg 04/01/2018 Cbc With Differential Ord2 [place]% 6.0 % 04/01/2018 Cbc With Differential Ord2 [...] 3.25 K/ul 04/01/2018 Cbc With Differential Ord2 [place] ABS# 0.6 K/ul 04/01/2018 Cbc With Differential Ord2 Eos ABS# 0.4 K/ul 04/01/2018 Cbc With Differential Ord2 Baso ABS# 0.0 K/ul 04/01/2018 %Hba1C Kox466 % HbA1c 90805-2 8.0 % 04/01/2018 %Hba1C Aib148 Gluc Ave 183 mg/dL 04/01/2018 Testosterone Cjq290 Testo 111.3 ng/dL 04/01/2018 Testosterone Ang236 Testo 135.4 ng/dL 01/14/2018 Cbc With Differential [...] 36.0 pg 01/14/2018 Cbc With Differential Ord2 [place]% 6.8 % 01/14/2018 Cbc With Differential Ord2 [...] 2.71 K/ul 01/14/2018 Cbc With Differential Ord2 [place] ABS# 0.8 K/ul 01/14/2018 Cbc With Differential Ord2 Eos ABS# 0.2 K/ul 01/14/2018 Cbc With Differential Ord2 Baso ABS# 0.0 K/ul 01/14/2018 Comp Metabolic Ony174 NA 134 mEq/L 11/20/2017 Comp Metabolic Duy546 K 4.4 mEq/L 11/20/2017 Comp Metabolic Oaw650 CL 99 mEq/L 11/20/2017 Comp Metabolic Tzh720 CO2 29.0 mEq/L 11/20/2017 Comp Metabolic Wol418 AN ION GAP 10 11/20/2017 Comp Metabolic Bpe752 GL UCOSE 218 mg/dL 11/20/2017 Comp Metabolic Fjn152 Cr eat 1.0 mg/dL 11/20/2017 Comp Metabolic Fln050 eG FR 78 ml/min/1.73m2 11/20 Comp Metabolic Lwl303 BUN 13 mg/dL 11/20/2017 Comp Metabolic Xvd698 B/ C Ratio 13.3 Ratio 11/20/2017 Comp Metabolic Dwo888 CA LCIUM 9.0 mg/dL 11/20/2017 Comp Metabolic Qpy525 AL K PHOS 71 U/L 11/20/2017 Comp Metabolic Fek779 T(SGOT) 18 U/L 11/20/2017 Comp Metabolic Rxi085 AL T(SGPT) 17 U/L 11/20/2017 Comp Metabolic Rhg000 BI LI T 0.4 mg/dL 11/20/2017 Comp Metabolic Ejn296 AL BUMIN 4.1 g/dL 11/20/2017 Comp Metabolic Ubx097 TP RO 6.5 g/dL 11/20/2017 Comp Metabolic Pxd514 GL OB 2.4 g/dL 11/20/2017 Comp Metabolic Ewm113 A/ G Ratio 1.8 Ratio 11/20/2017 Comp Metabolic Hrg089 Os mo 275 mOsmo 11/20/2017 Cbc With [...] 35.2 pg 11/20/2017 Cbc With Differential Ord2 [place]% 7.2 % 11/20/2017 Cbc With Differential Ord2 [...] 3.34 K/ul 11/20/2017 Cbc With Differential Ord2 [place] ABS# 0.6 K/ul 11/20/2017 Cbc With Differential Ord2 Eos ABS# 0.3 K/ul 11/20/2017 Cbc With Differential Ord2 Baso ABS# 0.0 K/ul 11/20/2017 Vitamin D 25 Oh Uzp1844 VITAMIN D, 25 HYDROXY 43.72 ng/mL 11/20/2017 %Hba1C Zxv586 % HbA1c 41634-7 7.4 % 11/20/2017 %Hba1C Guo142 Gluc Ave 166 mg/dL 11/20/2017 %Hba1C Dum388 % HbA1c 14309-2 7.2 % 08/20/2017 %Hba1C Cvi098 Gluc Ave 160 mg/dL 08/20/2017 Lipid Ord30 [...] 34.7 pg 08/20/2017 Cbc With Differential Ord2 [place]% 7.6 % 08/20/2017 Cbc With Differential Ord2 [...] 2.42 K/ul 08/20/2017 Cbc With Differential Ord2 [place] ABS# 0.6 K/ul 08/20/2017 Cbc With Differential Ord2 Eos ABS# 0.3 K/ul 08/20/2017 Cbc With Differential Ord2 Baso ABS# 0.0 K/ul 08/20/2017 Tsh Ord6 hTSH II 2.27 uIU/mL 08/20/2017 Comp Metabolic Vlc498 NA 138 mEq/L 08/20/2017 Comp Metabolic Cpc685 K 4.3 mEq/L 08/20/2017 Comp Metabolic Onb821 CL 102 mEq/L 08/20/2017 Comp Metabolic Lbe662 CO2 29.0 mEq/L 08/20/2017 Comp Metabolic Ljk315 AN ION GAP 11 08/20/2017 Comp Metabolic Fgi954 GL UCOSE 89 mg/dL 08/20/2017 Comp Metabolic Xoh710 Cr eat 1.0 mg/dL 08/20/2017 Comp Metabolic Dta128 eG FR 80 ml/min/1.73m2 08/20 Comp Metabolic Dgj037 BUN 13 mg/dL 08/20/2017 Comp Metabolic Ocq614 B/ C Ratio 13.5 Ratio 08/20/2017 Comp Metabolic Zfl894 CA LCIUM 9.2 mg/dL 08/20/2017 Comp Metabolic Gvv475 AL K PHOS 69 U/L 08/20/2017 Comp Metabolic Mtn688 T(SGOT) 18 U/L 08/20/2017 Comp Metabolic Glb819 AL T(SGPT) 19 U/L 08/20/2017 Comp Metabolic Zbc486 BI LI T 0.6 mg/dL 08/20/2017 Comp Metabolic Ihy334 AL BUMIN 4.0 g/dL 08/20/2017 Comp Metabolic Ewg257 TP RO 6.6 g/dL 08/20/2017 Comp Metabolic Oqk642 GL OB 2.6 g/dL 08/20/2017 Comp Metabolic Mew236 A/ G Ratio 1.5 Ratio 08/20/2017 Comp Metabolic Msw870 Os mo 275 mOsmo 08/20/2017 Vitamin D 25 Oh Iki1443 VITAMIN D, 25 HYDROXY 30.96 ng/mL 08/20/2017 B12 Xey251 B12 >1500.00 pg/ml 02/22/2017 Cbc With Differential [...] 35.7 pg 02/20/2017 Cbc With Differential Ord2 [place]% 6.3 % 02/20/2017 Cbc With Differential Ord2 [...] 3.19 K/ul 02/20/2017 Cbc With Differential Ord2 [place] ABS# 0.5 K/ul 02/20/2017 Cbc With Differential Ord2 Eos ABS# 0.4 K/ul 02/20/2017 Cbc With Differential Ord2 Baso ABS# 0.0 K/ul 02/20/2017 Comp Metabolic Zxw780 NA 138 mEq/L 02/20/2017 Comp Metabolic Jzo757 K 4.5 mEq/L 02/20/2017 Comp Metabolic Ccz886 CL 101 mEq/L 02/20/2017 Comp Metabolic Hnz622 CO2 31.0 mEq/L 02/20/2017 Comp Metabolic Mki947 AN ION GAP 11 02/20/2017 Comp Metabolic Hyt845 GL UCOSE 120 mg/dL 02/20/2017 Comp Metabolic Fkm157 Cr eat 0.9 mg/dL 02/20/2017 Comp Metabolic Jak926 eG FR 83 ml/min/1.73m2 02/20 Comp Metabolic Wnn990 BUN 15 mg/dL 02/20/2017 Comp Metabolic Qok360 B/ C Ratio 16.1 Ratio 02/20/2017 Comp Metabolic Cag735 CA LCIUM 9.1 mg/dL 02/20/2017 Comp Metabolic Hzm299 AL K PHOS 67 U/L 02/20/2017 Comp Metabolic Fbj538 T(SGOT) 15 U/L 02/20/2017 Comp Metabolic Foi669 AL T(SGPT) 16 U/L 02/20/2017 Comp Metabolic Uud239 BI LI T 0.5 mg/dL 02/20/2017 Comp Metabolic Xrj583 AL BUMIN 4.0 g/dL 02/20/2017 Comp Metabolic Byu729 TP RO 6.4 g/dL 02/20/2017 Comp Metabolic Viv411 GL OB 2.4 g/dL 02/20/2017 Comp Metabolic Xba933 A/ G Ratio 1.7 Ratio 02/20/2017 Comp Metabolic Jod928 Os mo 278 mOsmo 02/20/2017 Tsh Ord6 hTSH II 2.05 uIU/mL 02/20/2017 %Hba1C Lvp548 % HbA1c 85633-0 7.6 % 02/20/2017 %Hba1C Zsl291 Gluc Ave 171 mg/dL 02/20/2017 Vitamin D 25 Oh Yuu9974 VITAMIN D, 25 HYDROXY 44.40 ng/mL 12/21/2016 Comp Metabolic Nqt372 NA 131 mEq/L 12/21/2016 Comp Metabolic Zkm421 K 4.2 mEq/L 12/21/2016 Comp Metabolic Zeq041 CL 97 mEq/L 12/21/2016 Comp Metabolic Hmj984 CO2 27.0 mEq/L 12/21/2016 Comp Metabolic Kmv858 AN ION GAP 11 12/21/2016 Comp Metabolic Wew054 GL UCOSE 266 mg/dL 12/21/2016 Comp Metabolic Tmm622 Cr eat 0.9 mg/dL 12/21/2016 Comp Metabolic Sxd001 eG FR 88 ml/min/1.73m2 12/21 Comp Metabolic Vkx213 BUN 12 mg/dL 12/21/2016 Comp Metabolic Izt714 B/ C Ratio 13.6 Ratio 12/21/2016 Comp Metabolic Cgj991 CA LCIUM 8.6 mg/dL 12/21/2016 Comp Metabolic Zfs091 AL K PHOS 69 U/L 12/21/2016 Comp Metabolic Wva923 T(SGOT) 15 U/L 12/21/2016 Comp Metabolic Osd341 AL T(SGPT) 14 U/L 12/21/2016 Comp Metabolic Evt871 BI LI T 0.3 mg/dL 12/21/2016 Comp Metabolic Kav036 AL BUMIN 3.7 g/dL 12/21/2016 Comp Metabolic But149 TP RO 5.9 g/dL 12/21/2016 Comp Metabolic Sja273 GL OB 2.2 g/dL 12/21/2016 Comp Metabolic Jzb103 A/ G Ratio 1.7 Ratio 12/21/2016 Comp Metabolic Bea887 Os mo 272 mOsmo 12/21/2016 Cbc With [...] 34.6 pg 12/21/2016 Cbc With Differential Ord2 [place]% 6.9 % 12/21/2016 Cbc With Differential Ord2 [...] 2.05 K/ul 12/21/2016 Cbc With Differential Ord2 [place] ABS# 0.4 K/ul 12/21/2016 Cbc With Differential Ord2 Eos ABS# 0.2 K/ul 12/21/2016 Cbc With Differential Ord2 Baso ABS# 0.0 K/ul 12/21/2016 Comp Metabolic Yny938 NA 138 mEq/L 09/03/2016 Comp Metabolic Ooo407 K 4.5 mEq/L 09/03/2016 Comp Metabolic Ycw085 CL 102 mEq/L 09/03/2016 Comp Metabolic Xer668 CO2 30.0 mEq/L 09/03/2016 Comp Metabolic Wat897 AN ION GAP 11 09/03/2016 Comp Metabolic Pab086 GL UCOSE 113 mg/dL 09/03/2016 Comp Metabolic Mwz125 Cr eat 1.0 mg/dL 09/03/2016 Comp Metabolic Utj147 eG FR 81 ml/min/1.73m2 09/03 Comp Metabolic Gvp002 BUN 10 mg/dL 09/03/2016 Comp Metabolic Zcz089 B/ C Ratio 10.5 Ratio 09/03/2016 Comp Metabolic Wbq588 CA LCIUM 9.1 mg/dL 09/03/2016 Comp Metabolic Ixj647 AL K PHOS 71 U/L 09/03/2016 Comp Metabolic Rfp309 T(SGOT) 18 U/L 09/03/2016 Comp Metabolic Opr265 AL T(SGPT) 17 U/L 09/03/2016 Comp Metabolic Aku275 BI LI T 0.6 mg/dL 09/03/2016 Comp Metabolic Ltc600 AL BUMIN 4.1 g/dL 09/03/2016 Comp Metabolic Mxa709 TP RO 6.4 g/dL 09/03/2016 Comp Metabolic Zhw089 GL OB 2.3 g/dL 09/03/2016 Comp Metabolic Vhe807 A/ G Ratio 1.8 Ratio 09/03/2016 Comp Metabolic And988 Os mo 276 mOsmo 09/03/2016 Vitamin D 25 Oh Ejh9869 VITAMIN D, 25 HYDROXY 28.23 ng/mL 09/03/2016 [...] 34.4 pg 09/03/2016 Cbc With Differential Ord2 [place]% 8.9 % 09/03/2016 Cbc With Differential Ord2 [...] 3.34 K/ul 09/03/2016 Cbc With Differential Ord2 [place] ABS# 0.7 K/ul 09/03/2016 Cbc With Differential Ord2 Eos ABS# 0.4 K/ul 09/03/2016 Cbc With Differential Ord2 Baso ABS# 0.0 K/ul 09/03/2016 Lipid Ord30 CHOL 120 mg/dL 09/03/2016 Lipid Ord30 HDL 33.0 mg/dl 09/03/2016 Lipid Ord30 TRIG 161 mg/dL 09/03/2016 Lipid Ord30 LDL 55 mg/dL 09/03/2016 Lipid Ord30 C/HDL 3.6 Ratio 09/03/2016 %Hba1C Ezy830 % HbA1c 98109-8 7.5 % 09/03/2016 %Hba1C Ots637 Gluc Ave 169 mg/dL 09/03/2016 Tsh Ord6 hTSH II 1.50 uIU/mL 05/23/2016 %Hba1C Vee945 % HbA1c 55158-8 7.6 % 05/23/2016 %Hba1C Fyo416 Gluc Ave 171 mg/dL 05/23/2016 Comp Metabolic Mpf847 NA 135 mEq/L 05/23/2016 Comp Metabolic Cjt171 K 4.4 mEq/L 05/23/2016 Comp Metabolic Dpc210 CL 99 mEq/L 05/23/2016 Comp Metabolic Oez377 CO2 28.0 mEq/L 05/23/2016 Comp Metabolic Gzt751 AN ION GAP 12 05/23/2016 Comp Metabolic Lme525 GL UCOSE 257 mg/dL 05/23/2016 Comp Metabolic Wwe042 Cr eat 0.8 mg/dL 05/23/2016 Comp Metabolic Ghm092 eG FR 95 ml/min/1.73m2 05/23 Comp Metabolic Vvm306 BUN 11 mg/dL 05/23/2016 Comp Metabolic Ojj081 B/ C Ratio 13.3 Ratio 05/23/2016 Comp Metabolic Ywo872 CA LCIUM 9.0 mg/dL 05/23/2016 Comp Metabolic Xcq377 AL K PHOS 82 U/L 05/23/2016 Comp Metabolic Que403 T(SGOT) 21 U/L 05/23/2016 Comp Metabolic Gyh655 AL T(SGPT) 20 U/L 05/23/2016 Comp Metabolic Dfl929 BI LI T 0.3 mg/dL 05/23/2016 Comp Metabolic Gvj375 AL BUMIN 4.0 g/dL 05/23/2016 Comp Metabolic Xpf424 TP RO 6.4 g/dL 05/23/2016 Comp Metabolic Yjv157 GL OB 2.4 g/dL 05/23/2016 Comp Metabolic Kcf082 A/ G Ratio 1.6 Ratio 05/23/2016 Comp Metabolic Gki493 Os mo 278 mOsmo 05/23/2016 Cbc With [...] 34.5 pg 05/23/2016 Cbc With Differential Ord2 [place]% 6.1 % 05/23/2016 Cbc With Differential Ord2 [...] 2.38 K/ul 05/23/2016 Cbc With Differential Ord2 [place] ABS# 0.4 K/ul 05/23/2016 Cbc With Differential Ord2 Eos ABS# 0.2 K/ul 05/23/2016 Cbc With Differential Ord2 Baso ABS# 0.0 K/ul 05/23/2016 B12 Dxs244 B12 597.00 pg/ml 05/23/2016 Metabolic Ord15 NA [...] 0.92 uIU/mL 07/29/2015 Vitamin D 25 Oh Qwx6934 VITAMIN D, 25 HYDROXY 26.93 ng/mL 07/29/2015 %Hba1C Elp708 % HbA1c 12152-4 8.8 % 07/29/2015 %Hba1C Fzj627 Gluc Ave 206 mg/dL 07/29/2015 Cbc With [...] Ord2 RDW 14.9 % 07/29/2015 Comp Metabolic Xel875 NA 138 mEq/L 07/29/2015 Comp Metabolic Rem995 K 4.4 mEq/L 07/29/2015 Comp Metabolic Smn464 CL 102 mEq/L 07/29/2015 Comp Metabolic Mmz660 CO2 28.0 mEq/L 07/29/2015 Comp Metabolic Ihi706 AN ION GAP 12 07/29/2015 Comp Metabolic Ecl735 GL UCOSE 261 mg/dL 07/29/2015 Comp Metabolic Taj921 Cr eat 1.0 mg/dL 07/29/2015 Comp Metabolic Ycf047 eG FR 77 ml/min/1.73m2 07/29 Comp Metabolic Ejs789 BUN 13 mg/dL 07/29/2015 Comp Metabolic Lyt102 B/ C Ratio 13.0 Ratio 07/29/2015 Comp Metabolic Gek284 CA LCIUM 9.1 mg/dL 07/29/2015 Comp Metabolic Jeh163 AL K PHOS 64 U/L 07/29/2015 Comp Metabolic Nud284 T(SGOT) 20 U/L 07/29/2015 Comp Metabolic Ykm537 AL T(SGPT) 22 U/L 07/29/2015 Comp Metabolic Trz586 BI LI T 0.4 mg/dL 07/29/2015 Comp Metabolic Oyq901 AL BUMIN 4.0 g/dL 07/29/2015 Comp Metabolic Ecb615 TP RO 6.1 g/dL 07/29/2015 Comp Metabolic Nut570 GL OB 2.1 g/dL 07/29/2015 Comp Metabolic Mnh120 A/ G Ratio 1.9 Ratio 07/29/2015 Comp Metabolic Xbs690 Os mo 285 mOsmo 07/29/2015 Cbc With [...] Ord2 RDW 13.1 % 05/06/2015 Comp Metabolic Jxw002 NA 134 mEq/L 05/06/2015 Comp Metabolic Pbq284 K 4.4 mEq/L 05/06/2015 Comp Metabolic Mqv794 CL 98 mEq/L 05/06/2015 Comp Metabolic Vcr606 CO2 29.0 mEq/L 05/06/2015 Comp Metabolic Qql728 AN ION GAP 11 05/06/2015 Comp Metabolic Zgl921 GL UCOSE 321 mg/dL 05/06/2015 Comp Metabolic Qun828 Cr eat 1.0 mg/dL 05/06/2015 Comp Metabolic Bwd436 eG FR 78 ml/min/1.73m2 05/06 Comp Metabolic Ywe671 BUN 20 mg/dL 05/06/2015 Comp Metabolic Ycb589 B/ C Ratio 20.4 Ratio 05/06/2015 Comp Metabolic Ffx909 CA LCIUM 9.5 mg/dL 05/06/2015 Comp Metabolic Upn329 AL K PHOS 62 U/L 05/06/2015 Comp Metabolic Uir478 T(SGOT) 21 U/L 05/06/2015 Comp Metabolic Ccl923 AL T(SGPT) 37 U/L 05/06/2015 Comp Metabolic Mun667 BI LI T 0.4 mg/dL 05/06/2015 Comp Metabolic Sge123 AL BUMIN 3.8 g/dL 05/06/2015 Comp Metabolic Nwi929 TP RO 6.1 g/dL 05/06/2015 Comp Metabolic Brj913 GL OB 2.3 g/dL 05/06/2015 Comp Metabolic Nol851 A/ G Ratio 1.7 Ratio 05/06/2015 Comp Metabolic Wfn604 Os mo 283 mOsmo 05/06/2015 Tsh Ord6 hTSH II 1.65 uIU/mL 02/18/2015 B12 Zgz389 B12 605.00 pg/ml 02/18/2015 %Hba1C Iav938 % HbA1c 82508-2 8.3 % 02/18/2015 %Hba1C Dau735 Gluc Ave 192 mg/dL 02/18/2015 Cbc With [...] Ord2 RDW 13.9 % 02/17/2015 Comp Metabolic Kut725 NA 137 mEq/L 02/17/2015 Comp Metabolic Xlg674 K 4.4 mEq/L 02/17/2015 Comp Metabolic Foy404 CL 100 mEq/L 02/17/2015 Comp Metabolic Pti814 CO2 31.0 mEq/L 02/17/2015 Comp Metabolic Iuq758 AN ION GAP 10 02/17/2015 Comp Metabolic Rlk052 GL UCOSE 307 mg/dL 02/17/2015 Comp Metabolic Isd221 Cr eat 1.0 mg/dL 02/17/2015 Comp Metabolic Rpn240 eG FR 74 ml/min/1.73m2 02/17 Comp Metabolic Qdd406 BUN 22 mg/dL 02/17/2015 Comp Metabolic Fud715 B/ C Ratio 21.4 Ratio 02/17/2015 Comp Metabolic Doe853 CA LCIUM 9.5 mg/dL 02/17/2015 Comp Metabolic Ntk681 AL K PHOS 78 U/L 02/17/2015 Comp Metabolic Bij670 T(SGOT) 18 U/L 02/17/2015 Comp Metabolic Nmk716 AL T(SGPT) 32 U/L 02/17/2015 Comp Metabolic Mji540 BI LI T 0.5 mg/dL 02/17/2015 Comp Metabolic Mif330 AL BUMIN 4.3 g/dL 02/17/2015 Comp Metabolic Gsd689 TP RO 6.7 g/dL 02/17/2015 Comp Metabolic Umk031 GL OB 2.4 g/dL 02/17/2015 Comp Metabolic Qro704 A/ G Ratio 1.8 Ratio 02/17/2015 Comp Metabolic Uoc015 Os mo 289 mOsmo 02/17/2015 Review of [...] cough Respiratory daytime hypersomnolence 03/24/2015 Respiratory dyspnea 08/1 10/2014 Gastrointestinal No abdominal pain 03/24/2015 Gastrointestinal No [...] inspection of skin Location: face 03/07/2015 on mandaen, cheeks,actinic keratosis with irritation on left cheek - left mandaen - croptherapy on these two lesions - [...] Procedure Codes Date THER/PROPH/DIAG INJ SC/IM CPT-4: 05318 01/01/2019 THER/PROPH/DIAG INJ SC/IM CPT-4: 96419 12/17/2018 THER/PROPH/DIAG INJ SC/IM CPT-4: 86855 12/02/2018 THER/PROPH/DIAG INJ SC/IM CPT-4: 86825 11/18/2018 THER/PROPH/DIAG INJ SC/IM CPT-4: 11493 11/04/2018 THER/PROPH/DIAG INJ SC/IM CPT-4: 03691 10/14/2018 THER/PROPH/DIAG INJ SC/IM CPT-4: 70827 10/03/2018 THER/PROPH/DIAG INJ SC/IM CPT-4: 53879 09/23/2018 THER/PROPH/DIAG INJ SC/IM CPT-4: 05185 09/02/2018 THER/PROPH/DIAG INJ SC/IM CPT-4: 70811 08/21/2018 THER/PROPH/DIAG INJ SC/IM CPT-4: 12301 08/08/2018 THER/PROPH/DIAG INJ SC/IM CPT-4: 51110 07/28/2018 THER/PROPH/DIAG INJ SC/IM CPT-4: 23959 07/16/2018 THER/PROPH/DIAG INJ SC/IM CPT-4: 98687 07/02/2018 PPPS, SUBSEQ VISIT CPT- 4: G0439 06/30/2018 THER/PROPH/DIAG INJ SC/IM CPT-4: 15261 06/24/2018 THER/PROPH/DIAG INJ SC/IM CPT-4: 77149 06/13/2018 ADMIN INFLUENZA VIRU S VAC CPT-4: G0008 06/06/2018 FLU VACC PRSV FREE I NC ANTIG CPT-4: 85894 06/06/2018 THER/PROPH/DIAG INJ SC/IM CPT-4: 71390 06/05/2018 THER/PROPH/DIAG INJ SC/IM CPT-4: 00708 05/30/2018 THER/PROPH/DIAG INJ SC/IM CPT-4: 33347 05/22/2018 THER/PROPH/DIAG INJ SC/IM CPT-4: 74428 05/12/2018 THER/PROPH/DIAG INJ SC/IM CPT-4: 86159 05/02/2018 THER/PROPH/DIAG INJ SC/IM CPT-4: 84528 04/24/2018 THER/PROPH/DIAG INJ SC/IM CPT-4: 92645 04/17/2018 KETOROLAC TROMETHAMI NE INJ CPT-4: J1885 03/07/2018 URINALYSIS NONAUTO W /O SCOPE CPT-4: 42870 03/07/2018 THER/PROPH/DIAG INJ SC/IM CPT-4: 38627 02/20/2018 TRIAMCINOLONE ACET I [place] NOS CPT-4: J3301 01/30/2018 THER/PROPH/DIAG INJ SC/IM CPT-4: 77013 01/17/2018 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 3-[address]: [id number] CPT-4: G0436 04/25/2017 ADMIN INFLUENZA VIRU S VAC CPT-4: G0008 04/25/2017 ADMIN PNEUMOCOCCAL V ACCINE SNOMED CT: 51220396 CPT-4: G0009 04/25/2017 PNEUMOCOCCAL VACC [address]: 82542773 CPT-4: 53868 04/25/2017 FLU VACC PRSV FREE I NC ANTIG CPT-4: 24372 04/25/2017 ADMIN INFLUENZA VIRU S VAC CPT-4: G0008 05/22/2016 FLU VACC 4 TELLY 3 YRS PLUS IM Formatting Model/CDA Sections, Assigned to/Deonte Angela SNOMED CT: 24161739 CPT-4: 44538Daruseg 05/22/2016 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 3-[address]: [id number] CPT-4: G0436 11/25/2015 URINALYSIS NONAUTO W /O SCOPE CPT-4: 82813 05/09/2015 TRIAMCINOLONE ACET I [place] NOS CPT-4: J3301 04/12/2015 DESTRUCT PREMALG LESION CPT-4: 77242 03/07/2015 DESTRUCT PREMALG LES 2-14 CPT-4: 19746 03/07/2015 REMOVE IMPACTED EAR WAX UNI CPT-4: 48769 12/31/2014 THER/PROPH/DIAG INJ SC/IM CPT-4: 81850 12/23/2014 TRIAMCINOLONE ACET I [place] NOS CPT-4: J3301 12/23/2014 Vital Signs Date Vital 12/02/2018 Blood Pressure 1: 140/70 Code: 8480-6 BMI: 21.9 Code: 02633-6 Heart Rate 1: 61 bpm Height: 5'11" SpO2: 94% Weight: 157 lbs 10/17/2018 Blood Pressure 1: 124/54 Code: 8480-6 BMI: 21.9 Code: 20391-8 Heart Rate 1: 64 bpm Height: 5'11" SpO2: 93% Weight: 157 lbs 09/02/2018 Blood Pressure 1: 140/80 Code: 8480-6 BMI: 21.2 Code: 33244-8 Heart Rate 1: 68 bpm Height: 5'11" SpO2: 97% Weight: 152 lbs 06/30/2018 BMI: 21.8 Code: 68210-8 Height: 5'11" Weight: 156 lbs 06/06/2018 Blood Pressure 1: 128/76 Code: 8480-6 BMI: 22.0 Code: 40951-0 Heart Rate 1: 81 bpm Height: 5'11" SpO2: 92% Weight: 158 lbs 04/04/2018 Blood Pressure 1: 124/70 Code: 8480-6 BMI: 20.8 Code: 91962-0 Heart Rate 1: 65 bpm Height: 5'11" SpO2: 95% Weight: 149 lbs 03/07/2018 Blood Pressure 1: 148/70 Code: 8480-6 BMI: 21.2 Code: 46649-4 Heart Rate 1: 66 bpm Height: 5'11" SpO2: 94% Weight: 152 lbs 02/20/2018 Blood Pressure 1: 134/58 Code: 8480-6 BMI: 20.5 Code: 37988-2 Heart Rate 1: 61 bpm Height: 5'11" SpO2: 92% Weight: 147 lbs 01/30/2018 Blood Pressure 1: 158/68 Code: 8480-6 BMI: 21.5 Code: 61764-9 Heart Rate 1: 71 bpm Height: 5'11" SpO2: 92% Weight: 154 lbs 01/14/2018 Blood Pressure 1: 156/70 Code: 8480-6 Height: Weight: 01/13/2018 Blood Pressure 1: 148/62 Code: 8480-6 BMI: 20.9 Code: 28631-0 Heart Rate 1: 54 bpm Height: 5'11" SpO2: 97% Weight: 150 lbs 11/19/2017 Blood Pressure 1: 150/60 Code: 8480-6 BMI: 21.8 Code: 98035-7 Heart Rate 1: 63 bpm Height: 5'11" SpO2: 98% Weight: 156 lbs 10/02/2017 Blood Pressure 1: 168/60 Code: 8480-6 BMI: 21.9 Code: 07294-4 Heart Rate 1: 52 bpm Height: 5'11" SpO2: 97% Weight: 157 lbs 07/23/2017 Blood Pressure 1: 170/70 Code: 8480-6 BMI: 21.8 Code: 41836-8 Heart Rate 1: 65 bpm Height: 5'11" SpO2: 98% Weight: 156 lbs 04/25/2017 Blood Pressure 1: 138/60 Code: 8480-6 BMI: 21.6 Code: 07562-8 Heart Rate 1: 55 bpm Height: 5'11" SpO2: 93% Weight: 155 lbs 02/19/2017 Blood Pressure 1: 138/64 Code: 8480-6 BMI: 21.3 Code: 10973-7 Heart Rate 1: 52 bpm Height: 5'11" SpO2: 96% Weight: 152 lbs 8 oz 01/21/2017 Blood Pressure 1: 160/68 Code: 8480-6 BMI: 21.3 Code: 45340-9 Heart Rate 1: 62 bpm Height: 5'11" SpO2: 96% Weight: 153 lbs 12/20/2016 Blood Pressure 1: 124/66 Code: 8480-6 BMI: 21.5 Code: 78930-1 Height: 5'11" Weight: 154 lbs 08/23/2016 Blood Pressure 1: 142/52 Code: 8480-6 BMI: 21.2 Code: 68147-3 Heart Rate 1: 54 bpm Height: 5'11" SpO2: 96% Weight: 152 lbs 05/22/2016 Blood Pressure 1: 130/76 Code: 8480-6 BMI: 21.5 Code: 34545-5 Heart Rate 1: 78 bpm Height: 5'11" SpO2: 92% Weight: 154 lbs 02/24/2016 Blood Pressure 1: 128/80 Code: 8480-6 BMI: 21.2 Code: 59042-3 Heart Rate 1: 74 bpm Height: 5'11" SpO2: 96% Weight: 152 lbs 01/27/2016 Blood Pressure 1: 144/60 Code: 8480-6 BMI: 21.2 Code: 18646-6 Heart Rate 1: 74 bpm Height: 5'11" SpO2: 97% Weight: 152 lbs 11/25/2015 Blood Pressure 1: 110/52 Code: 8480-6 BMI: 21.9 Code: 85968-4 Heart Rate 1: 65 bpm Height: 5'11" SpO2: 92% Weight: 157 lbs 07/28/2015 Blood Pressure 1: 138/62 Code: 8480-6 BMI: 21.8 Code: 84167-2 Heart Rate 1: 63 bpm Height: 5'11" SpO2: 91% Weight: 156 lbs 05/26/2015 Blood Pressure 1: 120/58 Code: 8480-6 BMI: 21.5 Code: 71386-8 Heart Rate 1: 99 bpm Height: 5'11" SpO2: 96% Weight: 154 lbs 05/06/2015 Blood Pressure 1: 120/58 Code: 8480-6 BMI: 21.2 Code: 91963-8 Heart Rate 1: 66 bpm Height: 5'11" SpO2: 96% Weight: 152 lbs 04/25/2015 Blood Pressure 1: 136/62 Code: 8480-6 BMI: 21.2 Code: 91138-0 Heart Rate 1: 63 bpm Height: 5'11" SpO2: 97% Weight: 152 lbs 04/12/2015 Blood Pressure 1: 160/58 Code: 8480-6 BMI: 21.6 Code: 73905-4 Heart Rate 1: 62 bpm Height: 5'11" Weight: 155 lbs 03/24/2015 Blood Pressure 1: 138/68 Code: 8480-6 BMI: 22.0 Code: 11633-8 Heart Rate 1: 65 bpm Height: 5'11" SpO2: 96% Weight: 158 lbs 03/07/2015 Blood Pressure 1: 116/52 Code: 8480-6 BMI: 22.2 Code: 12308-9 Heart Rate 1: 64 bpm Height: 5'11" SpO2: 97% Weight: 159 lbs 02/17/2015 Blood Pressure 1: 148/58 Code: 8480-6 BMI: 21.3 Code: 86004-1 Heart Rate 1: 63 bpm Height: 5'11" SpO2: 97% Weight: 153 lbs 12/31/2014 Blood Pressure 1: 100/60 Code: 8480-6 BMI: 21.8 Code: 36148-4 Heart Rate 1: 68 bpm Height: 5'11" Weight: 156 lbs 12/23/2014 Blood Pressure 1: 148/64 Code: 8480-6 BMI: 21.9 Code: 64534-3 Heart Rate 1: 64 bpm Height: 5'11" [...] Encounters Encounter Performer Loca tion Codes Date ([id number]) 60448 EST. 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 P ATIENT, LEVEL III Diagnosis: Orthostatic hypotension[ICD10: I95.1] Diagnosis: Low back pain[ICD10: M54.5] Diagnosis: Unsteadiness on feet[ICD10: R26.81] Karmen Ash MD, [facility] CPT-4: 32073 10/17/2018 ([id number]) 41012 EST. 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 P ATIENT, LEVEL IV Diagnosis: Cellulitis of face[ICD10: L03.211] Diagnosis: Type 2 diabetes mellitus without complications[ICD10: E11.9] Diagnosis: Essential (primary) hypertension[ICD10: I10] Diagnosis: Encounter for immunization[ICD10: Z23] Karmen Ash MD, [facility] CPT-4: 52082 06/06/2018 ([id number]) 51646 EST. 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 P ATIENT, LEVEL III Diagnosis: Low back pain[ICD10: M54.5] Diagnosis: Dysuria[ICD10: R30.0] [facility] CPT-4: 84761 03/07/2018 ([id number]) 95934 EST. 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 P ATIENT, LEVEL III Diagnosis: Chronic obstructive pulmonary disease with (acute) exacerbation[ICD10: J44.1] Karmen Ash MD, [facility] CPT-4: 26232 01/30/2018 98159 EST. PATIENT, LEVEL II Diagnosis: Insect bite (nonvenomous), left lower leg, initial encounter[ICD10: S80.862A] Karmen Ash MD, [facility] CPT-4: 51088 01/14/2018 ([id number]) 52724 EST. P ATIENT, LEVEL IV Diagnosis: Type 2 diabetes mellitus with hyperglycemia[ICD10: E11.65] Diagnosis: Chronic obstructive pulmonary disease, unspecified[ICD10: J44.9] Diagnosis: Other fatigue[ICD10: R53.83] Karmen Ash MD, [facility] CPT- 4: 15829 01/13/2018 ([id number]) 60928 EST. P ATIENT, LEVEL IV Diagnosis: Type 2 diabetes mellitus with hyperglycemia[ICD10: E11.65] Diagnosis: Vitamin D deficiency, unspecified[ICD10: E55.9] Diagnosis: Essential (primary) hypertension[ICD10: I10] Diagnosis: Abdominal distension (gaseous)[ICD10: R14.0] Diagnosis: Drug induced constipation[ICD10: K59.03] Karmen Ash MD, [facility] CPT-4: 71733 11/19/2017 73500 EST. PATIENT, LEVEL IV Diagnosis: Low back pain[ICD10: M54.5] Diagnosis: Chronic obstructive pulmonary disease, unspecified[ICD10: J44.9] Brunilda Ash MD, [facility] CPT-4: 19456 10/02/2017 ([id number]) 12164 EST. P ATIENT, LEVEL IV Diagnosis: Essential (primary) hypertension[ICD10: I10] Diagnosis: Type 2 diabetes mellitus with hyperglycemia[ICD10: E11.65] Diagnosis: Vitamin D deficiency, unspecified[ICD10: E55.9] Diagnosis: Mixed hyperlipidemia[ICD10: E78.2] Karmen Ash MD, [facility] CPT-4: 52431 07/23/2017 ([id number]) 35300 EST. P ATIENT, LEVEL IV Diagnosis: Essential (primary) hypertension[ICD10: I10] Diagnosis: Type 2 diabetes mellitus with hyperglycemia[ICD10: E11.65] Diagnosis: Chronic obstructive pulmonary disease, unspecified[ICD10: J44.9] Diagnosis: Nicotine dependence, unspecified, uncomplicated[ICD10: F17.200] Diagnosis: Encounter for immunization[ICD10: Z23] Karmen Ash MD, [facility] CPT-4: 86560 04/25/2017 ([id number]) 49470 EST. P ATIENT, LEVEL IV Diagnosis: Type 2 diabetes mellitus with hyperglycemia[ICD10: E11.65] Diagnosis: Essential (primary) hypertension[ICD10: I10] Diagnosis: Anemia, unspecified[ICD10: D64.9] Karmen Ash MD, [facility] CPT- 4: 71085 02/19/2017 ([id number]) 43464 EST. P ATIENT, LEVEL IV Diagnosis: Slow transit constipation[ICD10: K59.01] Diagnosis: Gastro-esophageal reflux disease without esophagitis[ICD10: K21.9] Diagnosis: Essential (primary) hypertension[ICD10: I10] Karmen Ash MD, [facility] CPT-4: 18534 01/21/2017 ([id number]) 51259 EST. P ATIENT, LEVEL IV Diagnosis: Type 2 diabetes mellitus with hyperglycemia[ICD10: E11.65] Diagnosis: Vitamin D deficiency, unspecified[ICD10: E55.9] Diagnosis: Essential (primary) hypertension[ICD10: I10] Diagnosis: Chronic obstructive pulmonary disease, unspecified[ICD10: J44.9] Karmen Ash MD, [facility] CPT-4: 88412 12/20/2016 ([id number]) 38494 EST. P ATIENT, LEVEL IV Diagnosis: Type 2 diabetes mellitus with hyperglycemia[ICD10: E11.65] Diagnosis: Essential (primary) hypertension[ICD10: I10] Diagnosis: Mixed hyperlipidemia[ICD10: E78.2] Diagnosis: Vitamin D deficiency, unspecified[ICD10: E55.9] Karmen Ash MD, [facility] CPT-4: 74905 08/23/2016 ([id number]) 31298 EST. P ATIENT, LEVEL IV Diagnosis: Type 2 diabetes mellitus with hyperglycemia[ICD10: E11.65] Diagnosis: Essential (primary) hypertension[ICD10: I10] Diagnosis: Chronic obstructive pulmonary disease, unspecified[ICD10: J44.9] Karmen Ash MD, [facility] CPT-4: 61728 05/22/2016 ([id number]) 83632 EST. P ATIENT, LEVEL III Diagnosis: Dysuria[ICD10: R30.0] Diagnosis: Essential (primary) hypertension[ICD10: I10] Karmen Ash MD, [facility] CPT-4: 87262 02/24/2016 ([id number]) 83749 EST. P ATIENT, LEVEL IV Diagnosis: Gastro-esophageal reflux disease without esophagitis[ICD10: K21.9] Diagnosis: Slow transit constipation[ICD10: K59.01] Diagnosis: Type 2 diabetes mellitus with hyperglycemia[ICD10: E11.65] Karmen Ash MD, [facility] CPT-4: 13191 01/27/2016 ([id number]) 33467 EST. P ATIENT, LEVEL IV Diagnosis: Essential (primary) hypertension[ICD10: I10] Diagnosis: Type 2 diabetes mellitus with hyperglycemia[ICD10: E11.65] Diagnosis: Vitamin D deficiency, unspecified[ICD10: E55.9] Diagnosis: Chronic obstructive pulmonary disease, unspecified[ICD10: J44.9] Diagnosis: Mixed hyperlipidemia[ICD10: E78.2] Diagnosis: Tobacco use[ICD10: Z72.0] Karmen Ash MD, [facility] CPT- 4: 60855 11/25/2015 ([id number]) 87563 EST. P ATIENT, LEVEL IV Diagnosis: Type 2 diabetes mellitus with hyperglycemia[ICD10: E11.65] Diagnosis: Essential (primary) hypertension[ICD10: I10] Diagnosis: Vitamin D deficiency, unspecified[ICD10: E55.9] Karmen Ash MD, [facility] CPT-4: 68886 07/28/2015 ([id number]) 05851 EST. P ATIENT, LEVEL III Diagnosis: Type 2 diabetes mellitus with hyperglycemia[ICD10: E11.65] Diagnosis: Essential (primary) hypertension[ICD10: I10] Violeta Ash MD, [facility] CPT-4: 21502 05/26/2015 ([id number]) 95390 EST. P ATIENT, LEVEL III Diagnosis: DIABETES TYPE II[ICD9: 250.00] Diagnosis: COPD (chronic obstructive pulmonary disease)[ICD9: 496] Diagnosis: ESSENTIAL HYPERTENSION[ICD9: 401.9] Diagnosis: Cough[ICD9: 786.2] [facility] CPT-4: 56807 05/06/2015 ([id number]) 29975 EST. P ATIENT, LEVEL III Diagnosis: COPD (chronic obstructive pulmonary disease)[ICD9: 496] Diagnosis: DIABETES TYPE II[ICD9: 250.00] Diagnosis: Muscle ache[ICD9: 729.1] Karmen Ash MD, [facility] CPT- 4: 30276 04/25/2015 ([id number]) 88299 EST. P ATIENT, LEVEL III Diagnosis: ACTINIC KERATOSIS[ICD9: 702.0] Diagnosis: COPD (chronic obstructive pulmonary disease)[ICD9: 496] Diagnosis: DIABETES TYPE II[ICD9: 250.00] Diagnosis: ACUTE URI[ICD9: 465.9] [facility] CPT-4: 84654 04/12/2015 ([id number]) 20546 EST. P ATIENT, LEVEL III Diagnosis: DIABETES TYPE II[ICD9: 250.00] [facility] CPT-4: 33672 03/24/2015 ([id number]) 90605 EST. P ATIENT, LEVEL IV Diagnosis: DIABETES TYPE II[ICD9: 250.00] Diagnosis: Hypoglycemia[ICD9: 251.2] Diagnosis: Skin texture changes[ICD9: 782.8] [facility] CPT-4: 20044 03/07/2015 ([id number]) 03337 EST. P ATIENT, LEVEL IV Diagnosis: COPD (chronic obstructive pulmonary disease)[ICD9: 496] Diagnosis: Fatigue[ICD9: 780.79] Diagnosis: Insulin dependent diabetes mellitus[ICD9: 250.00] Diagnosis: Unsteady gait[ICD9: 781.2] Maame Ash MD, [facility] CPT-4: 50263 02/17/2015 ([id number]) 83817 EST. P ATIENT, LEVEL IV Diagnosis: BPPV (benign paroxysmal positional vertigo)[ICD9: 386.11] Diagnosis: Impacted cerumen[ICD9: 380.4] Diagnosis: ESSENTIAL HYPERTENSION[ICD9: 401.9] Diagnosis: Insulin dependent diabetes mellitus[ICD9: 250.00] Karmen Ash MD, [facility] CPT-4: 19014 12/23/2014 ([id number]) OFFICE [facility] - LEVEL 4 Diagnosis: Insulin dependent diabetes mellitus[ICD9: 250.00] Diagnosis: BPPV (benign paroxysmal positional vertigo)[ICD9: 386.11] Diagnosis: COPD (chronic obstructive pulmonary disease)[ICD9: 496] Diagnosis: Tobacco abuse[ICD9: 305.1] Diagnosis: Osteoarthritis[ICD9: 715.90] Karmen Ash MD, [facility] CPT- 4: 03944 12/09/2014 Plan of Care Planned Activity Notes [...] directed 12/02/2018 Appointment: Karmen Espinal WPtel: [phone] [phone] (30 min) Complex 12/02/2018 Patient Education: Patient Medication Summary Completed 12/02/2018 Patient Education: Diabetes Completed 12/02/2018 Appointment: Injection 11/18/2018 Patient Education: Patient Medication Summary Completed 11/18/2018 Appointment: Injection 11/04/2018 Patient Education: Patient Medication Summary Completed 11/04/2018 [phone] [phone] (30 min) Complex 10/21/2018 Visit Plan: [...] walker 10/17/2018 Appointment: [facility] [phone] [phone] (30 min) Complex 10/17/2018 Patient Education: Patient [...] to medications. 09/02/2018 Appointment: Karmen Espinal WPtel: [phone] (15 min) Moderate 09/02/2018 Patient Education: [...] surrogate. 06/30/2018 Appointment: [facility] Espinal [facility]el[facility] [phone] [phone] [facility] - Annual Wellness Visit 06/30/2018 [...] pain. 06/06/2018 Appointment: [facility]inal [facility] [phone] [phone] (15 min) Moderate 06/06/2018 Patient Education: [...] months 04/04/2018 Appointment: Karmen Espinal WPtel: [phone] [phone] (15 min) Moderate 04/04/2018 Patient Education: Patient Medication Summary Completed 04/04/2018 Care Plan: Cbc With Differential Pending 04/04/2018 Care Plan: Testosterone repeat in 2 months Pending 04/04/2018 Appointment: Karmen Espinal WPtel: [phone] [phone] [place] (15 min) Moderate 03/25/2018 Visit Plan: Low back pain -history of kidney stone-UA negative today -increase fluids and call if pain does not resolve or if any worse. 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 01/30/2018 Appointment: Karmen Espinal WPtel: [phone] [phone] (15 min) Moderate 01/30/2018 Patient Education: Patient Medication Summary Completed 01/30/2018 Appointment: Karmen Espinal WPtel: [phone] [phone] (15 min) Moderate 01/28/2018 Appointment: [place] 01/17/2018 Patient Education: Patient Medication Summary Completed 01/17/2018 Visit Plan: Cellulitis - start oral antibiotics as directed, return to clinic as previously directed, call for acute change in symptoms, worsening redness, warmth, discharge. 01/14/2018 Appointment: Karmen Espinal WPtel: [phone] [phone] (10 min) Simple 01/14/2018 Patient Education: [...] controlled. 01/13/2018 Appointment: Karmen Espinal WPtel: [phone] [phone] (15 min) Moderate 01/13/2018 Patient Education: Patient Medication Summary Completed 01/13/2018 Referral: Hugo Villatoro [place] [facility] SSDel:[phone] [facility] Patient's informed. Referral info ned [place]. Completed [...] change in blood pressure readings at home. Lbvsgesi-zswdek-ctqxv to see Dr Villatoro Constipation-start linzess daily 11/19/2017 Appointment: Karmen Espinal WPtel: [phone] (30 min) Complex 11/19/2017 Patient Education: Patient Medication Summary Completed 11/19/2017 Care Plan: Referral Order bloating, nausea SNOMED-CT : 269818191 Pending 11/19/2017 Visit Plan: Low back pain- [...] acute changes. 10/02/2017 Appointment: Brunilda Maravilla [facility]Ptel: [phone] [facility] (15 min) Moderate 10/02/2017 Patient Education: [...] less controlled. 07/23/2017 Appointment: [facility] Espinal [facility]Ptel: [phone] [phone] [place] (30 min) Complex 07/23/2017 Patient Education: [...] pack/year history 04/25/2017 Appointment: Karmen Espinal WPtel: [phone] (30 min) Complex 04/25/2017 Patient Education: [...] readings are starting to become less controlled. Bqssvl-fdybkkl-payfu labs 02/19/2017 Appointment: Karmen Espinal WPtel: [phone] [phone] (30 min) Complex 02/19/2017 Patient Education: [...] improved on this regimen. REFER TO DR VALDES FOR EGD/COLONOSCOPY DUE TO INCREASING SYMPTOMS-WEIGHT LOSS-DECREASED APPETITE. PATIENT AND STATES IT HAS BEEN MORE THAN 10 YEARS SINCE SCOPES. HTN- elevated today-monitor at home-follow up in 1 month 01/21/2017 Appointment: Karmen Espinal WPtel: [phone] [phone] (30 min) Complex 01/21/2017 Patient Education: Patient Medication Summary Completed 01/21/2017 Patient Education: Smoking and Tobacco Addiction Completed 01/21/2017 Patient Education: Hypertension Completed 01/21/2017 Care Plan: Referral Order SNOMED-CT : [id number] Pending 01/21/2017 Visit Plan: Diabetes Mellitus - hav e recommended for the patient to have follow up labs prior to the next office visit. The patient has been instructed to continue with current medications as previously directed, c [place] with regular FSBS monitoring to assure continued [...] changes. 12/20/2016 Appointment: Karmen Espinal WPtel: [phone] [phone] (30 min) Complex 12/20/2016 Patient Education: Patient Medication Summary Completed 12/20/2016 Patient Education: Smoking and Tobacco Addiction Completed 12/20/2016 Patient Education: Hypertension Completed 12/20/2016 Appointment: Karmen Espinal WPtel: [phone] [facility] [place] [address] (30 min) Complex 09/06/2016 Visit Plan: Diabetes [...] d level 08/23/2016 Appointment: Karmen Espinal WPtel: [facility] [place] [address] (30 min) Complex 08/23/2016 Patient Education: Patient [...] changes. 05/22/2016 Appointment: Karmen Espinal WPtel: [phone] [phone] (30 min) Complex 05/22/2016 Patient Education: Patient Medication Summary Completed 05/22/2016 Patient Education: Smoking and Tobacco Addiction Completed 05/22/2016 Care Plan: Cbc With Differential Ordered 05/22/2016 Care Plan: %Hba1C KIKI C : 73476-3 Ordered 05/22/2016 Care Plan: Tsh Ordered 05/22/2016 [...] Appointment: Karmen Espinal WPtel: [phone] [place] [address] (30 min) Complex 02/24/2016 Patient Education: Patient [...] Appointment: Karmen Espinal WPtel: [phone] (30 min) Complex 01/27/2016 Patient Education: Patient [...] Completed 05/06/2015 Visit Plan: COPD 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 Riskvodr-olbntrgt-SGZJ SIMVASTATIN X 2 WEEKS AND CALL WITH [...] Completed 03/24/2015 Care Plan[facility] Ordered 03/24/2015 Visit Plan: Diabetes Mellitus - [...] - posterior scalp - referral to Dr. Valdes for removal. 03/07/2015 Appointment: [facility]el[phone] [phone] (15 min) Moderate 03/07/2015 Patient Education: [...] Care Plan: COMPLETE CBC AUTOMATED LOINC : 46814-1 Ordered 12/23/2014 Visit Plan: BPPV - Benign [...] appt 12/09/2014 Appointment: [facility] Espinal WPtel: [phone] [phone] [place] ([place] New Patient 12/09/2014 Patient Education: Patient Medication Summary Completed 12/09/2014 Patient Education: .Amazing charts Parox ysmal positional vertigo Completed 12/09/2014 Patient Education: Smoking and Tobacco Addiction Completed 12/09/2014 Referral: Hugo Villatoro HPtel:[phone] [facility] [place] Referral Appointment Requested Referral: Luis Valdes Referral Appointment Requested Instructions Comment . Low [...] readings are starting to become less controlled. Fcqmpd-kifnzes-iyies labs . COPD -recent pneum onia-symptoms have [...] her DOP[employer] paperwork for health care surrogate. CALL IF THE KENALOG SHOT DOES NOT [...] today in the office-wound instructions provided . Hypertension - wel l controlled - [...] if symptoms not improved on this regimen. MELATONIN FOR SLEEP -START WITH 3MG AT [...] Insulin Dependent Diabetes- Check labs today. . Esophageal Reflux - the patient has [...] improved on this regimen. REFER TO DR VALDES FOR EGD/COLONOSCOPY DUE TO INCREASING SYMPTOMS-WEIGHT LOSS- [...] - posterior scalp - referral to Dr. Valdes for removal. . Cerumen Impaction - The [...] change in blood pressure readings at home. Kovlnkgq-mlpvbu-vcvxe to see Dr Villatoro Constipation-start linzess daily [...] POTENTIAL SIDE EFFECTS AND WORSENING OF SYMPTOMS. Sypjcbpg-ckymmbcy-BKEY SIMVASTATIN X 2 WEEKS AND CALL WITH UPDATE . Orthostatic hypote nsion -recommend patient pump [...] medications. Vitamin d deficiency-check vitamin d level flu/prevnar . Hypertension - well controlled [...]
--- OUTSIDE RECORDS SUMMARY | 2020-03-29 08:10 | XMS REPORT | CCD ---
Author Author Dick Espinal Organization [facility] Address [address] [place] [address] Phone Care Team Providers Care Rotary Adjuster Name Role Phone PP Unavailable CCM Unavailable Summary Purpose Interface Exchange Insurance Providers Payer name Policy type / Coverage type Covered alliance party ID Effective Begin Date Effective End Date WPS Medicare Part B Medicare Part B [id number] Unknown Unknown [employer] Medicar e Part B [id number] Unknown Unkn own Family history Father Diagnosis Age At Onset Cancer Unknown Mother Diagnosis Age At Onset Cancer Unknown Social History Social History Element Codes Description Effective Dates Marital status Unknown M arried 12/09/2014 Employment Unknown Retir ed 12/09/[address]: 71337555 Currently smokes tobacco 12/09/2014 Number of years using tobacco Unknown > 50 12/09/2014 Number of cigarettes/day Unknown 30 (Pack and a half) 12/09/[address]: 154948332 Never drinks alcohol 12/09/2014 Allergies, Adverse Reactions, [...] cypiona te 200 mg/mL intramuscular oil RxNorm: 2957619 Milliliter(s) IM 01/01/2019 01/01/2019 In active Xanax 0.5 mg tablet RxNorm: 224119 1 Tablet(s) PO TID 12/18/2018 02/15/2019 Active testosterone cypiona te 200 mg/mL intramuscular oil RxNorm: 8548549 Milliliter(s) IM 12/17/2018 12/17/2018 In active hydrocodone 5 mg-linh taminophen 325 mg tablet RxNorm: 786392 1 Tablet(s) PO Q6-8H as needed 12/15/2018 01/08/2019 Active testosterone cypiona te 200 mg/mL intramuscular oil RxNorm: 1321153 Milliliter(s) IM 12/02/2018 12/02/2018 In active testosterone cypiona te 200 mg/mL intramuscular oil RxNorm: 4632102 Milliliter(s) IM 11/18/2018 11/18/2018 In active hydrocodone 5 mg-linh taminophen 325 mg tablet RxNorm: 602604 1 Tablet(s) PO Q6-8H as needed 11/13/2018 12/07/2018 Inactive testosterone cypiona te 200 mg/mL intramuscular oil RxNorm: 9665866 1/2 Milliliter(s) IM U0dmgfr 11/04/2018 03/03/2019 Active testosterone cypiona te 200 mg/mL intramuscular oil RxNorm: 0736323 Milliliter(s) IM 11/04/2018 11/04/2018 In active nicotine 21 mg/24 hr daily transdermal patch RxNorm: 197234 1 TD daily 10/31/2018 10/30/2018 In active nicotine 21 mg/24 hr daily transdermal patch RxNorm: 742789 1 TD daily 10/31/2018 11/29/2018 In active meclizine 25 mg tablet RxNorm: 107407 1 Tablet(s) PO Q6 PRN TAKE ONE TABLET BY MOUTH EVERY 6 HOURS NEEDED 10/17/2018 01/14/2019 Active hydrocodone 5 mg-linh taminophen 325 mg tablet RxNorm: 591163 1 Tablet(s) PO Q6-8H as needed 10/17/2018 11/10/2018 Inactive metformin 500 mg tablet RxNorm: 682962 Tablet(s) TAKE 1 TABLET BY MOUTH DAILY 10/15/2018 10/09/2019 Ac tive lisinopril 10 mg tablet RxNorm: 820656 TAKE 1 TABLET BY MOUTH TWO TIMES DAILY 10/15/2018 10/09/2019 Ac tive - First Attempt Ref: [id number] testosterone cypiona te 200 mg/mL intramuscular oil RxNorm: 8521651 Milliliter(s) IM 10/14/2018 10/14/2018 In active Xanax 0.5 mg tablet RxNorm: 647507 1 Tablet(s) PO TID 10/03/2018 11/30/2018 Inactive testosterone cypiona te 200 mg/mL intramuscular oil RxNorm: 6326339 1/2 Milliliter(s) IM weekly 10/03/2018 11/03/2018 Inactive testosterone cypiona te 200 mg/mL intramuscular oil RxNorm: 2437524 Milliliter(s) IM 10/03/2018 10/03/2018 In active testosterone cypiona te 200 mg/mL intramuscular oil RxNorm: 3803874 Milliliter(s) IM 09/23/2018 09/23/2018 In active hydrocodone 5 mg-linh taminophen 325 mg tablet RxNorm: 817300 1 Tablet(s) PO Q6-8H as needed 09/22/2018 10/16/2018 Inactive testosterone cypiona te 200 mg/mL intramuscular oil RxNorm: 3219151 1/2 Milliliter(s) IM 09/02/2018 09/02/2018 Inactive testosterone enantha te 200 mg/mL intramuscular oil RxNorm: 559139 Milliliter(s) IM 08/21/2018 08/21/2018 In active hydrocodone 5 mg-linh taminophen 325 mg tablet RxNorm: 916758 1 Tablet(s) PO Q6-8H as needed 08/21/2018 09/14/2018 Inactive testosterone cypiona te 200 mg/mL intramuscular oil RxNorm: 5838739 Milliliter(s) IM 08/08/2018 08/08/2018 In active testosterone cypiona te 200 mg/mL intramuscular oil RxNorm: 5360499 1/2 Milliliter(s) IM 07/28/2018 07/28/2018 Inactive hydrocodone 5 mg-linh taminophen 325 mg tablet RxNorm: 750165 1 Tablet(s) PO Q6-8H as needed 07/21/2018 08/14/2018 Inactive testosterone cypiona te 200 mg/mL intramuscular oil RxNorm: 935031 Milliliter(s) IM 07/16/2018 07/16/2018 In active testosterone cypiona te 200 mg/mL intramuscular oil RxNorm: 031790 Milliliter(s) IM 07/02/2018 07/02/2018 In active Xanax 0.5 mg tablet RxNorm: 859937 1 Tablet(s) PO TID 06/27/2018 08/24/2018 Inactive testosterone cypiona te 200 mg/mL intramuscular oil RxNorm: 118646 Milliliter(s) IM 06/24/2018 06/24/2018 In active hydrocodone 5 mg-linh taminophen 325 mg tablet RxNorm: 300656 1 Tablet(s) PO Q6-8H as needed 06/23/2018 07/17/2018 Inactive testosterone cypiona te 200 mg/mL intramuscular oil RxNorm: 951203 Milliliter(s) IM 06/13/2018 06/13/2018 In active testosterone cypiona te 200 mg/mL intramuscular oil RxNorm: 245632 Milliliter(s) IM 06/05/2018 06/05/2018 In active testosterone cypiona te 200 mg/mL intramuscular oil RxNorm: 9994520 1/2 Milliliter(s) IM weekly 05/30/2018 09/26/2018 Inactive testosterone cypiona te 200 mg/mL intramuscular oil RxNorm: 516720 Milliliter(s) IM 05/30/2018 05/30/2018 In active testosterone cypiona te 200 mg/mL intramuscular oil RxNorm: 008087 Milliliter(s) IM 05/22/2018 05/22/2018 In active hydrocodone 5 mg-linh taminophen 325 mg tablet RxNorm: 541540 1 Tablet(s) PO Q6-8H as needed 05/20/2018 06/13/2018 Inactive testosterone cypiona te 200 mg/mL intramuscular oil RxNorm: 071545 1/2 Milliliter(s) IM 05/12/2018 05/12/2018 Inactive testosterone cypiona te 200 mg/mL intramuscular oil RxNorm: 648607 Milliliter(s) IM 05/02/2018 05/02/2018 In active testosterone cypiona te 200 mg/mL intramuscular oil RxNorm: 908367 1/2 Milliliter(s) IM weekly 04/24/2018 05/29/2018 Inactive testosterone cypiona te 200 mg/mL intramuscular oil RxNorm: 284547 0.5 Milliliter(s) IM 04/24/2018 04/24/2018 Inactive hydrocodone 5 mg-linh taminophen 325 mg tablet RxNorm: 487432 1 Tablet(s) PO Q6-8H as needed 04/22/2018 05/16/2018 Inactive testosterone cypiona te 200 mg/mL intramuscular oil RxNorm: 307767 1/2 Milliliter(s) IM 04/17/2018 04/17/2018 Inactive testosterone cypiona te 200 mg/mL intramuscular oil RxNorm: 599799 1/2 Milliliter(s) IM weekly 04/16/2018 04/23/2018 Inactive Jardiance 10 mg tablet RxNorm: 2289094 1 Tablet(s) PO daily 04/04/2018 12/29/2018 Inactive Protonix 40 mg table t,delayed release RxNorm: 213995 1 Tablet(s) PO daily TAKE 1 TABLET BY MOUTH DAILY 04/04/2018 03/29/2019 Active - Ref: [id number] testosterone cypiona te 200 mg/mL intramuscular oil RxNorm: 196578 1 Milliliter(s) IM monthly 04/04/2018 04/15/2018 Inactive hydrocodone 5 mg-linh taminophen 325 mg tablet RxNorm: 542721 1 Tablet(s) PO Q6-8H as needed 03/19/2018 04/12/2018 Inactive Flomax 0.4 mg capsule RxNorm: 202831 1 Capsule(s) PO daily 03/10/2018 03/04/2019 Active Urecholine 25 mg tablet RxNorm: 358619 1 Tablet(s) PO BID 03/10/2018 07/07/2018 Inactive ketorolac 60 mg/2 mL intramuscular solution RxNorm: 2269431 Milliliter(s) IM 03/07/2018 03/07/2018 In active metformin 500 mg tablet RxNorm: 723166 Tablet(s) TAKE 1 TABLET BY MOUTH DAILY 02/20/2018 02/13/2019 Ac tive 1 q am and 1/2 tab q pm hydrocodone 5 mg-linh taminophen 325 mg tablet RxNorm: 588816 1 Tablet(s) PO Q6-8H as needed 02/20/2018 03/16/2018 Inactive Kenalog 40 mg/mL bartolome pension for injection RxNorm: 6307907 1.5 Milliliter(s) In j 01/30/2018 01/30/2018 In active hydrocodone 5 mg-linh taminophen 325 mg tablet RxNorm: 434763 1 Tablet(s) PO Q6-8H as needed 01/23/2018 02/16/2018 Inactive Urecholine 25 mg tablet RxNorm: 287108 1 Tablet(s) PO BID 01/22/2018 03/09/2018 Inactive Flomax 0.4 mg capsule RxNorm: 934286 1 Capsule(s) PO daily 01/22/2018 03/09/2018 Inactive Flomax 0.4 mg capsule RxNorm: 193591 1 Capsule(s) PO daily 01/22/2018 01/21/2018 Inactive Urecholine 25 mg tablet RxNorm: 298918 1 Tablet(s) PO BID 01/22/2018 01/21/2018 Inactive testosterone cypiona te 200 mg/mL intramuscular oil RxNorm: 895101 Milliliter(s) IM 01/17/2018 01/17/2018 In active testosterone cypiona te 200 mg/mL intramuscular oil RxNorm: 692584 1 Milliliter(s) IM monthly 01/17/2018 04/03/2018 Inactive doxycycline hyclate 100 mg tablet RxNorm: 933345 1 Tablet(s) PO BID 01/14/2018 01/23/2018 Inactive lisinopril 10 mg tablet RxNorm: 446896 TAKE 1 TABLET BY MOUTH TWO TIMES DAILY 01/14/2018 10/14/2018 In active - First Attempt Ref: [id number] nystatin 100,000 uni t/mL oral suspension RxNorm: 611943 4 Milliliter(s) PO QI D Swish and swallow 01/08/2018 01/07/2018 Inactive nystatin 100,000 uni t/mL oral suspension RxNorm: 920031 4 Milliliter(s) PO QI D Swish and swallow 01/08/2018 01/12/2018 Inactive Xanax 0.5 mg tablet RxNorm: 697538 1 Tablet(s) PO TID 01/08/2018 12/23/2018 Inactive simvastatin 40 mg ta blet RxNorm: 563321 TAKE 1 TABLET BY MOUT H DAILY AT BEDTIME 12/30/2017 12/24/2018 In active - First Attempt Ref: [id number] metformin 500 mg tablet RxNorm: 169366 TAKE 1 TABLET BY MOUTH DAILY 12/30/2017 02/19/2018 Inactive - First Attempt Ref: [id number] hydrocodone 5 mg-linh taminophen 325 mg tablet RxNorm: 205152 1 Tablet(s) PO Q6-8H as needed 12/25/2017 01/18/2018 Inactive Protonix 40 mg table t,delayed release RxNorm: 208877 Tablet(s) TAKE 1 TABL ET BY MOUTH DAILY 11/20/2017 04/03/2018 Inactive - Ref: [id number] Linzess 72 mcg capsule RxNorm: 6251783 1 Capsule(s) PO daily 11/19/2017 No Stop Date Active hydrocodone 5 mg-linh taminophen 325 mg tablet RxNorm: 480375 1 Tablet(s) PO Q6-8H as needed 11/19/2017 12/13/2017 Inactive hydrocodone 5 mg-linh taminophen 325 mg tablet RxNorm: 233831 1 Tablet(s) PO Q6-8H as needed 10/28/2017 11/18/2017 Inactive Xanax 0.5 mg tablet RxNorm: 391236 1 Tablet(s) PO TID 10/25/2017 12/22/2017 Inactive Xanax 0.5 mg tablet RxNorm: 865082 TAKE ONE TABLET BY MOUTH THREE TIMES A D AY 10/24/2017 12/01/2018 In active hydrocodone 5 mg-linh taminophen 325 mg tablet RxNorm: 692873 1 Tablet(s) PO Q6-8H as needed 09/30/2017 10/24/2017 Inactive Protonix 40 mg table t,delayed release RxNorm: 047299 TAKE 1 TABLET BY MOUT H DAILY 09/16/2017 11/19/2017 In active - Ref: [id number] Yovana SoloStar 300 unit/mL (1.5 mL) subcutaneous insulin pen RxNorm: 7773334 35 Unit(s) SQ QHS 08/30/2017 No Stop Date Active dosage increase hydrocodone 5 mg-linh taminophen 325 mg tablet RxNorm: 992278 1 Tablet(s) PO Q6-8H as needed 08/28/2017 09/29/2017 Inactive hydrocodone 5 mg-linh taminophen 325 mg tablet RxNorm: 447950 1 Tablet(s) PO Q6-8H as needed 07/23/2017 08/24/2017 Inactive lisinopril 10 mg tablet RxNorm: 183933 1 Tablet(s) PO BID Take 1 tablet by mout h daily 07/23/2017 01/13/2018 Inactive hydrocodone 5 mg-linh taminophen 325 mg tablet RxNorm: 951498 1 Tablet(s) PO Q6-8H as needed 06/27/2017 07/22/2017 Inactive Xanax 0.5 mg tablet RxNorm: 023046 1 Tablet(s) PO TID 06/18/2017 10/25/2017 Inactive hydrocodone 5 mg-linh taminophen 325 mg tablet RxNorm: 879598 1 Tablet(s) PO Q6-8H as needed 05/27/2017 06/26/2017 Inactive Levaquin 500 mg tablet RxNorm: 472766 1 Tablet(s) PO daily 05/24/2017 05/23/2017 Inactive Levaquin 500 mg tablet RxNorm: 449111 1 Tablet(s) PO daily 05/24/2017 05/30/2017 Inactive Protonix 40 mg table t,delayed release RxNorm: 138577 Take 1 tablet by mout h daily 04/29/2017 09/15/2017 In active - Ref: [id number] hydrocodone 5 mg-linh taminophen 325 mg tablet RxNorm: 504146 1 Tablet(s) PO Q6-8H as needed 04/25/2017 05/26/2017 Inactive metformin 500 mg tablet RxNorm: 574245 Take 1 tablet by mouth daily 04/08/2017 12/29/2017 Inactive - First Attempt Ref: [id number] hydrocodone 5 mg-linh taminophen 325 mg tablet RxNorm: 745278 1 Tablet(s) PO Q6-8H as needed 03/27/2017 04/24/2017 Inactive hydrocodone 5 mg-linh taminophen 325 mg tablet RxNorm: 625863 1 Tablet(s) PO Q6-8H as needed 02/25/2017 03/26/2017 Inactive Protonix 40 mg table t,delayed release RxNorm: 242896 Tablet(s) Take 1 tabl et by mouth BID 02/25/2017 04/28/2017 Inactive Protonix 40 mg table t,delayed release RxNorm: 468686 Tablet(s) Take 1 tabl et by mouth BID 02/19/2017 02/18/2017 Inactive Protonix 40 mg table t,delayed release RxNorm: 473649 Tablet(s) Take 1 tabl et by mouth BID 02/19/2017 02/24/2017 Inactive lisinopril 10 mg tablet RxNorm: 872600 Take 1 tablet by mouth daily 01/29/2017 07/22/2017 Inactive - First Attempt Ref: [id number] hydrocodone 5 mg-linh taminophen 325 mg tablet RxNorm: 003430 1 Tablet(s) PO Q6-8H as needed 01/25/2017 02/24/2017 Inactive simvastatin 40 mg ta blet RxNorm: 403898 Tablet(s) Take 1 tabl et by mouth daily at bedtime 01/03/2017 12/28/2017 Inactive lisinopril 10 mg tablet RxNorm: 241670 Tablet(s) Take 1 tablet by mouth daily 01/03/2017 01/28/2017 In active Protonix 40 mg table t,delayed release RxNorm: 321167 Tablet(s) Take 1 tabl et by mouth daily 12/28/2016 02/18/2017 Inactive hydrocodone 5 mg-linh taminophen 325 mg tablet RxNorm: 883540 1 Tablet(s) PO Q6-8H as needed 12/26/2016 01/24/2017 Inactive Xanax 0.5 mg tablet RxNorm: 405561 1 Tablet(s) PO TID 12/12/2016 03/11/2017 Inactive simvastatin 40 mg ta blet RxNorm: 824501 Tablet(s) Take 1 tabl et by mouth daily at bedtime 11/30/2016 01/02/2017 Inactive simvastatin 40 mg ta blet RxNorm: 107655 Take 1 tablet by mout h daily at bedtime 11/29/2016 11/29/2016 In active - First Attempt Ref: [id number] Protonix 40 mg table t,delayed release RxNorm: 259839 Take 1 tablet by mout h daily 11/27/2016 12/27/2016 In active - First Attempt Ref: [id number] hydrocodone 5 mg-linh taminophen 325 mg tablet RxNorm: 881737 1 Tablet(s) PO Q6-8H as needed 11/26/2016 12/25/2016 Inactive hydrocodone 5 mg-linh taminophen 325 mg tablet RxNorm: 109042 1 Tablet(s) PO Q8 as needed 10/24/2016 11/25/2016 Inactive Xanax 0.5 mg tablet RxNorm: 141187 1 Tablet(s) PO TID 10/09/2016 12/25/2016 Inactive hydrocodone 5 mg-linh taminophen 325 mg tablet RxNorm: 252803 1 Tablet(s) PO Q8 as needed 09/27/2016 10/23/2016 Inactive lisinopril 10 mg tablet RxNorm: 659364 Take 1 tablet by mouth daily 09/25/2016 01/02/2017 Inactive - First Attempt Ref: [id number] Vitamin D2 50,000 un it capsule RxNorm: 166906 1 Capsule(s) PO QW 09/06/2016 12/01/2018 Inactive hydrocodone 5 mg-linh taminophen 325 mg tablet RxNorm: 109064 1 Tablet(s) PO Q8 as needed 08/28/2016 09/26/2016 Inactive Toujeo SoloStar 300 unit/mL (1.5 mL) subcutaneous insulin pen RxNorm: 2223050 25 Unit(s) SQ QHS 08/23/2016 08/29/2017 Inactive dosage increase hydrocodone 5 mg-linh taminophen 325 mg tablet RxNorm: 737684 1 Tablet(s) PO Q8 as needed 07/26/2016 08/27/2016 Inactive Protonix 40 mg table t,delayed release RxNorm: 927865 Take 1 tablet by mout h daily 07/24/2016 11/26/2016 In active - First Attempt Ref: [id number] hydrocodone 5 mg-linh taminophen 325 mg tablet RxNorm: 073338 1 Tablet(s) PO Q8 as needed 06/19/2016 07/21/2016 Inactive Toujeo SoloStar 300 unit/mL (1.5 mL) subcutaneous insulin pen RxNorm: 5373361 32 Unit(s) SQ QHS 05/30/2016 08/22/2016 Inactive dosage increase hydrocodone 5 mg-linh taminophen 325 mg tablet RxNorm: 863384 1 Tablet(s) PO Q8 as needed 05/22/2016 06/18/2016 Inactive hydrocodone 5 mg-linh taminophen 325 mg tablet RxNorm: 053607 1 Tablet(s) PO Q8 as needed 04/18/2016 05/17/2016 Inactive Protonix 40 mg table t,delayed release RxNorm: 287277 Take 1 tablet by mout h daily 04/05/2016 07/03/2016 In active - Ref: [id number] metformin 500 mg tablet RxNorm: 697747 Take 1 tablet by mouth daily 04/04/2016 07/02/2016 Inactive - Ref: [id number] Xanax 0.5 mg tablet RxNorm: 796991 1 Tablet(s) PO TID 03/30/2016 09/25/2016 Inactive Xanax 0.5 mg tablet RxNorm: 693531 1 Tablet(s) PO TID 03/23/2016 12/25/2016 Inactive hydrocodone 5 mg-linh taminophen 325 mg tablet RxNorm: 637355 1 Tablet(s) PO Q8 as needed 03/06/2016 04/04/2016 Inactive Cipro 500 mg tablet RxNorm: 370478 1 Tablet(s) PO BID 02/24/2016 03/04/2016 Inactive Miralax 17 gram oral powder packet RxNorm: 600272 1 packet PO every oth er day 01/27/2016 No Stop Date Active hydrocodone 5 mg-linh taminophen 325 mg tablet RxNorm: 181638 1 Tablet(s) PO Q8 as needed 01/27/2016 02/25/2016 Inactive lisinopril 10 mg tablet RxNorm: 996412 1 Tablet(s) PO daily 01/12/2016 09/24/2016 Inactive simvastatin 40 mg ta blet RxNorm: 857724 1 Tablet(s) PO QHS 01/12/2016 11/28/2016 Inactive simvastatin 40 mg ta blet RxNorm: 494390 1 Tablet(s) PO QHS 01/11/2016 01/11/2016 Inactive lisinopril 10 mg tablet RxNorm: 045743 1 Tablet(s) PO daily 01/06/2016 01/11/2016 Inactive simvastatin 40 mg ta blet RxNorm: 854325 1 Tablet(s) PO daily 12/28/2015 01/10/2016 Inactive hydrocodone 5 mg-linh taminophen 325 mg tablet RxNorm: 458794 1 Tablet(s) PO Q8 as needed 12/27/2015 01/26/2016 Inactive Xanax 0.5 mg tablet RxNorm: 472595 1 Tablet(s) PO TID 11/30/2015 03/29/2016 Inactive Toujeo SoloStar 300 unit/mL (1.5 mL) subcutaneous insulin pen RxNorm: 3565115 30 Unit(s) SQ QHS 11/25/2015 05/29/2016 Inactive dosage increase meclizine 25 mg tablet RxNorm: 479510 1 Tablet(s) PO Q6 PRN TAKE ONE TABLET BY MOUTH EVERY 6 HOURS NEEDED 11/25/2015 02/22/2016 Inactive omeprazole 20 mg cap jacquelyn,delayed release RxNorm: 065050 1 Capsule(s) PO daily 10/06/2015 01/26/2016 In active Toujeo SoloStar 300 unit/mL (1.5 mL) subcutaneous insulin pen RxNorm: 0749464 35 Unit(s) SQ QHS 08/02/2015 11/24/2015 Inactive dosage increase Vitamin D2 50,000 un it capsule RxNorm: 363699 1 Capsule(s) PO QW 08/02/2015 09/05/2016 Inactive hydrocodone 5 mg-linh taminophen 325 mg tablet RxNorm: 429187 1 Tablet(s) PO Q8 as needed 07/11/2015 12/26/2015 Inactive Xanax 0.5 mg tablet RxNorm: 254183 1 Tablet(s) PO TID 06/30/2015 06/29/2015 Inactive Xanax 0.5 mg tablet RxNorm: 800164 1 Tablet(s) PO TID 06/30/2015 12/25/2015 Inactive hydrocodone 5 mg-linh taminophen 325 mg tablet RxNorm: 362593 1 Tablet(s) PO Q8 as needed 05/06/2015 07/10/2015 Inactive Symbicort 160 mcg-4. 5 mcg/actuation HFA aerosol inhaler RxNorm: 5268556 INH 04/25/2015 No Stop Date Active Levemir FlexTouch 10 0 unit/mL (3 mL) subcutaneous insulin pen RxNorm: 845507 30 Unit(s) SQ QHS 04/25/2015 11/24/2015 Inactive prednisone 20 mg tablet RxNorm: 157700 1 Tablet(s) PO BID 04/25/2015 04/29/2015 Inactive metformin 500 mg tablet RxNorm: 598864 1 Tablet(s) PO daily 04/25/2015 04/03/2016 Inactive amoxicillin 500 mg c apsule RxNorm: 500040 1 Capsule(s) PO TID 04/14/2015 04/13/2015 Inactive amoxicillin 500 mg c apsule RxNorm: 198051 1 Capsule(s) PO TID a nd recommend probiotic tid (otc) 04/14/2015 04/20/2015 Inactive Kenalog 40 mg/mL bartolome pension for injection RxNorm: 4241725 Milliliter(s) Inj 04/12/2015 04/12/2015 In active hydrocodone 5 mg-linh taminophen 325 mg tablet RxNorm: 078264 1 Tablet(s) PO Q8 as needed 03/30/2015 05/05/2015 Inactive Lantus 100 unit/mL s ubcutaneous solution RxNorm: 382421 25 Unit(s) SQ QPM 03/24/2015 04/25/2015 In active meclizine 25 mg tablet RxNorm: 856169 Tablet(s) TAKE ONE TABLET BY MOUTH EVERY 6 HOURS NEEDED 03/08/2015 04/06/2015 Inactive meclizine 25 mg tablet RxNorm: 278022 TAKE ONE TABLET BY MOUTH EVERY 6 HOURS A S NEEDED 02/25/2015 03/03/2015 Inactive Lantus 100 unit/mL s ubcutaneous solution RxNorm: 823314 20 Unit(s) SQ QPM 02/23/2015 03/23/2015 In active Lantus 100 unit/mL s ubcutaneous solution RxNorm: 884643 25 Unit(s) SQ QPM 02/23/2015 02/22/2015 In active hydrocodone 5 mg-linh taminophen 325 mg tablet RxNorm: 811352 1 Tablet(s) PO Q8 as needed 02/17/2015 03/29/2015 Inactive Xanax 0.5 mg tablet RxNorm: 837944 1 Tablet(s) PO TID 02/03/2015 06/29/2015 Inactive Lantus 100 unit/mL s ubcutaneous solution RxNorm: 412229 20 Unit(s) SQ QPM 12/29/2014 02/22/2015 In active Phenergan 12.5 mg re ctal suppository RxNorm: 418803 1 Suppository RTL Q6 PRN 12/23/2014 No Stop Date Active nausea Kenalog 40 mg/mL bartolome pension for injection RxNorm: 7130054 Milliliter(s) Inj 12/23/2014 12/23/2014 In active prednisone 20 mg tablet RxNorm: 122760 2 Tablet(s) PO daily 12/13/2014 12/17/2014 Inactive prednisone 20 mg tablet RxNorm: 179944 2 Tablet(s) PO daily 12/13/2014 12/12/2014 Inactive meclizine 25 mg tablet RxNorm: 826103 1 Tablet(s) PO Q6 PRN 12/09/2014 02/24/2015 Inactive hydrocodone 5 mg-linh taminophen 325 mg tablet RxNorm: 702067 1 Tablet(s) PO Q8 as needed 12/09/2014 02/16/2015 Inactive Vitamin B-12 1,000 m cg/mL oral drops RxNorm: 8212973 1 Milliliter(s) PO d aily No Start Date Active Alphagan P 0.1 % eye drops RxNorm: 184475 1 Drop(s) OPH BID No Start Date Active aspirin 325 mg table t,delayed release RxNorm: 687987 1 Tablet(s) PO daily No Start Date Active Tricor 145 mg tablet RxNorm: 659504 1 Tablet(s) PO daily No Start Date Active vitamin [id number] B1 oral liquid RxNorm: 1,000 Microgram(s) PO daily No Start Date Active atenolol 50 mg tablet RxNorm: 800267 1 Tablet(s) PO daily No Start Date Active Protonix 40 mg table t,delayed release RxNorm: 833363 1 Tablet(s) PO daily No Start Date 04/04/2016 Inactive glipizide 10 mg tablet RxNorm: 260823 1 Tablet(s) PO BID No Start Date 03/22/2015 Inactive Lantus 100 unit/mL s ubcutaneous solution RxNorm: 479237 15 Unit(s) SQ QPM No Start Date 12/28/2014 Inactive lisinopril 10 mg tablet RxNorm: 844536 1 Tablet(s) PO daily No Start Date 01/05/2016 Inactive Vitamin D2 50,000 un it capsule RxNorm: 797436 1 Capsule(s) PO QW No Start Date 08/01/2015 Inactive Toujeo SoloStar 300 unit/mL (1.5 mL) subcutaneous insulin pen RxNorm: 9839922 30 Unit(s) SQ QHS No Start Date 08/01/2015 Inactive simvastatin 40 mg ta blet RxNorm: 513225 1 Tablet(s) PO daily No Start Date 12/27/2015 Inactive testosterone cypiona te 200 mg/mL intramuscular oil RxNorm: 068029 1 Milliliter(s) IM monthly No Start Date 01/16/2018 Inactive hydrocodone 5 mg-linh taminophen 325 mg tablet RxNorm: 335272 1 Tablet(s) PO Q8 as needed No Start Date 12/08/2014 Inactive metformin 500 mg tablet RxNorm: 055731 1 Tablet(s) PO daily No Start Date 04/24/2015 Inactive omeprazole 20 mg cap jacquelyn,delayed release RxNorm: 535978 1 Capsule(s) PO daily No Start Date 10/05/2015 Inactive Flomax 0.4 mg capsule RxNorm: 032642 1 Capsule(s) PO daily No Start Date 03/23/2015 Inactive Medication Administered Medication Codes Instruc tions Start Date Status testosterone cypionate 200 mg/mL intramuscular oil RxNorm: 6346333 Milliliter 01/01/2019 Active testosterone cypionate 200 mg/mL intramuscular oil RxNorm: 5533558 Milliliter 12/17/2018 No longer Active testosterone cypionate 200 mg/mL intramuscular oil RxNorm: 2391377 Milliliter 12/02/2018 No longer Active testosterone cypionate 200 mg/mL intramuscular oil RxNorm: 8657499 Milliliter 11/18/2018 No longer Active testosterone cypionate 200 mg/mL intramuscular oil RxNorm: 9384783 Milliliter 11/04/2018 No longer Active testosterone cypionate 200 mg/mL intramuscular oil RxNorm: 9367286 Milliliter 10/14/2018 No longer Active testosterone cypionate 200 mg/mL intramuscular oil RxNorm: 0384537 Milliliter 10/03/2018 No longer Active testosterone cypionate 200 mg/mL intramuscular oil RxNorm: 8178214 Milliliter 09/23/2018 No longer Active testosterone cypionate 200 mg/mL intramuscular oil RxNorm: 8981928 /2Milliliter 09/02/2018 No longer Active testosterone enanthate 200 mg/mL intramuscular oil RxNorm: 285728 Milliliter 08/21/2018 No longer Active testosterone cypionate 200 mg/mL intramuscular oil RxNorm: 7228510 Milliliter 08/08/2018 No longer Active testosterone cypionate 200 mg/mL intramuscular oil RxNorm: 6869633 /2Milliliter 07/28/2018 No longer Active testosterone cypionate 200 mg/mL intramuscular oil RxNorm: 058041 Milliliter 07/16/2018 No longer Active testosterone cypionate 200 mg/mL intramuscular oil RxNorm: 653655 Milliliter 07/02/2018 No longer Active testosterone cypionate 200 mg/mL intramuscular oil RxNorm: 232778 Milliliter 06/24/2018 No longer Active testosterone cypionate 200 mg/mL intramuscular oil RxNorm: 012893 Milliliter 06/13/2018 No longer Active testosterone cypionate 200 mg/mL intramuscular oil RxNorm: 195236 Milliliter 06/05/2018 No longer Active testosterone cypionate 200 mg/mL intramuscular oil RxNorm: 935176 Milliliter 05/30/2018 No longer Active testosterone cypionate 200 mg/mL intramuscular oil RxNorm: 770816 Milliliter 05/22/2018 No longer Active testosterone cypionate 200 mg/mL intramuscular oil RxNorm: 385936 /2Milliliter 05/12/2018 No longer Active testosterone cypionate 200 mg/mL intramuscular oil RxNorm: 178513 Milliliter 05/02/2018 No longer Active testosterone cypionate 200 mg/mL intramuscular oil RxNorm: 970132 0.5Milliliter 04/24/2018 No longer Active testosterone cypionate 200 mg/mL intramuscular oil RxNorm: 195721 /2Milliliter 04/17/2018 No longer Active ketorolac 60 mg/2 mL intramuscular solution RxNorm: 8775834 Milliliter 03/07/2018 No longer Active Kenalog 40 mg/mL suspension for injection RxNorm: 4084075 1.5Milliliter 01/30/2018 No longer Active testosterone cypionate 200 mg/mL intramuscular oil RxNorm: 127055 Milliliter 01/17/2018 No longer Active Kenalog 40 mg/mL suspension for injection RxNorm: 9289005 Milliliter 04/12/2015 No longer Active Kenalog 40 mg/mL suspension for injection RxNorm: 1422329 Milliliter 12/23/2014 No longer Active Immunizations Vaccine [...] 33.4 pg 12/02/2018 Cbc With Differential Ord2 [place]% 8.0 % 12/02/2018 Cbc With Differential Ord2 [...] 2.13 K/ul 12/02/2018 Cbc With Differential Ord2 [place] ABS# 0.6 K/ul 12/02/2018 Cbc With Differential Ord2 [place] ABS# 0.4 K/ul 12/02/2018 Cbc With Differential Ord2 Baso ABS# 0.0 K/ul 12/02/2018 Testosterone Zzl439 Testo 213.5 ng/dL 12/02/2018 A1C Frequency Edb806 A1CF 15627-1 [place] [facility] [place] 2018[place]/2018 Testosterone Ulm467 Testo 669.0 ng/dL 09/08/2018 %Hba1C Uqj116 % HbA1c 65340-0 7.4 % 09/08/2018 %Hba1C Lqp792 Gluc Ave 166 mg/dL 09/08/2018 Lipid Ord30 CHOL 114 mg/dL 09/08/2018 Lipid Ord30 HDL 28.0 mg/dl 09/08/2018 Lipid Ord30 TRIG 154 mg/dL 09/08/2018 Lipid Ord30 LDL 55 mg/dL 09/08/2018 Lipid Ord30 C/HDL 4.1 Ratio 09/08/2018 Comp Metabolic Yjx912 NA 137 mEq/L 09/08/2018 Comp Metabolic Qsf076 K 4.3 mEq/L 09/08/2018 Comp Metabolic Ktj523 CL 100 mEq/L 09/08/2018 Comp Metabolic Pvf591 CO2 27.0 mEq/L 09/08/2018 Comp Metabolic Gpm580 AN ION GAP 14 09/08/2018 Comp Metabolic Eht758 GL UCOSE 85 mg/dL 09/08/2018 Comp Metabolic Tzt567 Cr eat 1.1 mg/dL 09/08/2018 Comp Metabolic Taw959 eG FR 70 ml/min/1.73m2 09/08 Comp Metabolic Zgq432 BUN 11 mg/dL 09/08/2018 Comp Metabolic Var529 B/ C Ratio 10.3 Ratio 09/08/2018 Comp Metabolic Qon642 CA LCIUM 9.2 mg/dL 09/08/2018 Comp Metabolic Rxt440 AL K PHOS 65 U/L 09/08/2018 Comp Metabolic Chy470 T(SGOT) 16 U/L 09/08/2018 Comp Metabolic Szt476 AL T(SGPT) 14 U/L 09/08/2018 Comp Metabolic Vgy467 BI LI T 0.6 mg/dL 09/08/2018 Comp Metabolic Sbk209 AL BUMIN 4.0 g/dL 09/08/2018 Comp Metabolic Wri861 TP RO 6.6 g/dL 09/08/2018 Comp Metabolic Ucl847 GL OB 2.6 g/dL 09/08/2018 Comp Metabolic Nrl212 A/ G Ratio 1.6 Ratio 09/08/2018 Comp Metabolic Bxf614 Os mo 272 mOsmo 09/08/2018 Vitamin D 25 Oh Ldg0989 VITAMIN D, 25 HYDROXY 37.17 ng/mL 09/08/2018 [...] 33.3 pg 09/08/2018 Cbc With Differential Ord2 [place]% 8.1 % 09/08/2018 Cbc With Differential Ord2 [...] 2.44 K/ul 09/08/2018 Cbc With Differential Ord2 [place] ABS# 0.6 K/ul 09/08/2018 Cbc With Differential Ord2 Eos ABS# 0.3 K/ul 09/08/2018 Cbc With Differential Ord2 Baso ABS# 0.0 K/ul 09/08/2018 Tsh Ord6 TSH (3rd IS) 2.72 uIU/mL 09/08/2018 Comp Metabolic Kqj181 NA 139 mEq/L 04/01/2018 Comp Metabolic Ski326 K 4.2 mEq/L 04/01/2018 Comp Metabolic Rho299 CL 102 mEq/L 04/01/2018 Comp Metabolic Pfn754 CO2 29.0 mEq/L 04/01/2018 Comp Metabolic Ctt673 AN ION GAP 12 04/01/2018 Comp Metabolic Ans499 GL UCOSE 87 mg/dL 04/01/2018 Comp Metabolic Aus967 Cr eat 1.1 mg/dL 04/01/2018 Comp Metabolic Bvs385 eG FR 70 ml/min/1.73m2 04/01 Comp Metabolic Ydj469 BUN 21 mg/dL 04/01/2018 Comp Metabolic Fhg322 B/ C Ratio 19.4 Ratio 04/01/2018 Comp Metabolic Gzq524 CA LCIUM 9.1 mg/dL 04/01/2018 Comp Metabolic Cmj620 AL K PHOS 60 U/L 04/01/2018 Comp Metabolic Xkk199 T(SGOT) 15 U/L 04/01/2018 Comp Metabolic Lni957 AL T(SGPT) 18 U/L 04/01/2018 Comp Metabolic Zle674 BI LI T 0.4 mg/dL 04/01/2018 Comp Metabolic Ozv671 AL BUMIN 4.0 g/dL 04/01/2018 Comp Metabolic Orr820 TP RO 6.5 g/dL 04/01/2018 Comp Metabolic Hxa223 GL OB 2.5 g/dL 04/01/2018 Comp Metabolic Esr318 A/ G Ratio 1.6 Ratio 04/01/2018 Comp Metabolic Rwc679 Os mo 280 mOsmo 04/01/2018 Lipid Ord30 [...] 34.3 pg 04/01/2018 Cbc With Differential Ord2 [place]% 6.0 % 04/01/2018 Cbc With Differential Ord2 [...] 3.25 K/ul 04/01/2018 Cbc With Differential Ord2 [place] ABS# 0.6 K/ul 04/01/2018 Cbc With Differential Ord2 Eos ABS# 0.4 K/ul 04/01/2018 Cbc With Differential Ord2 Baso ABS# 0.0 K/ul 04/01/2018 %Hba1C Ryq726 % HbA1c 88226-8 8.0 % 04/01/2018 %Hba1C Xwx514 Gluc Ave 183 mg/dL 04/01/2018 Testosterone Kfy854 Testo 111.3 ng/dL 04/01/2018 Testosterone Xwq537 Testo 135.4 ng/dL 01/14/2018 Cbc With Differential [...] 36.0 pg 01/14/2018 Cbc With Differential Ord2 [place]% 6.8 % 01/14/2018 Cbc With Differential Ord2 [...] 2.71 K/ul 01/14/2018 Cbc With Differential Ord2 [place] ABS# 0.8 K/ul 01/14/2018 Cbc With Differential Ord2 Eos ABS# 0.2 K/ul 01/14/2018 Cbc With Differential Ord2 Baso ABS# 0.0 K/ul 01/14/2018 Comp Metabolic Onk480 NA 134 mEq/L 11/20/2017 Comp Metabolic Kae964 K 4.4 mEq/L 11/20/2017 Comp Metabolic Iur948 CL 99 mEq/L 11/20/2017 Comp Metabolic Jpk281 CO2 29.0 mEq/L 11/20/2017 Comp Metabolic Dde177 AN ION GAP 10 11/20/2017 Comp Metabolic Fky058 GL UCOSE 218 mg/dL 11/20/2017 Comp Metabolic Ack247 Cr eat 1.0 mg/dL 11/20/2017 Comp Metabolic Xqk400 eG FR 78 ml/min/1.73m2 11/20 Comp Metabolic Tcw897 BUN 13 mg/dL 11/20/2017 Comp Metabolic Nhf430 B/ C Ratio 13.3 Ratio 11/20/2017 Comp Metabolic Ona272 CA LCIUM 9.0 mg/dL 11/20/2017 Comp Metabolic Rgu641 AL K PHOS 71 U/L 11/20/2017 Comp Metabolic Nvx365 T(SGOT) 18 U/L 11/20/2017 Comp Metabolic Bkj983 AL T(SGPT) 17 U/L 11/20/2017 Comp Metabolic Jqq335 BI LI T 0.4 mg/dL 11/20/2017 Comp Metabolic Fdn709 AL BUMIN 4.1 g/dL 11/20/2017 Comp Metabolic Hml728 TP RO 6.5 g/dL 11/20/2017 Comp Metabolic Hfu810 GL OB 2.4 g/dL 11/20/2017 Comp Metabolic Hea204 A/ G Ratio 1.8 Ratio 11/20/2017 Comp Metabolic Ukd543 Os mo 275 mOsmo 11/20/2017 Cbc With [...] 35.2 pg 11/20/2017 Cbc With Differential Ord2 [place]% 7.2 % 11/20/2017 Cbc With Differential Ord2 [...] 3.34 K/ul 11/20/2017 Cbc With Differential Ord2 [place] ABS# 0.6 K/ul 11/20/2017 Cbc With Differential Ord2 Eos ABS# 0.3 K/ul 11/20/2017 Cbc With Differential Ord2 Baso ABS# 0.0 K/ul 11/20/2017 Vitamin D 25 Oh Mpc1760 VITAMIN D, 25 HYDROXY 43.72 ng/mL 11/20/2017 %Hba1C Tow735 % HbA1c 50813-9 7.4 % 11/20/2017 %Hba1C Kku841 Gluc Ave 166 mg/dL 11/20/2017 %Hba1C Wfp434 % HbA1c 80066-3 7.2 % 08/20/2017 %Hba1C Pdx581 Gluc Ave 160 mg/dL 08/20/2017 Lipid Ord30 [...] 34.7 pg 08/20/2017 Cbc With Differential Ord2 [place]% 7.6 % 08/20/2017 Cbc With Differential Ord2 [...] 2.42 K/ul 08/20/2017 Cbc With Differential Ord2 [place] ABS# 0.6 K/ul 08/20/2017 Cbc With Differential Ord2 Eos ABS# 0.3 K/ul 08/20/2017 Cbc With Differential Ord2 Baso ABS# 0.0 K/ul 08/20/2017 Tsh Ord6 hTSH II 2.27 uIU/mL 08/20/2017 Comp Metabolic Cgl844 NA 138 mEq/L 08/20/2017 Comp Metabolic Yca919 K 4.3 mEq/L 08/20/2017 Comp Metabolic Xdk117 CL 102 mEq/L 08/20/2017 Comp Metabolic Kdf289 CO2 29.0 mEq/L 08/20/2017 Comp Metabolic Rrg102 AN ION GAP 11 08/20/2017 Comp Metabolic Glu368 GL UCOSE 89 mg/dL 08/20/2017 Comp Metabolic Msm845 Cr eat 1.0 mg/dL 08/20/2017 Comp Metabolic Srq104 eG FR 80 ml/min/1.73m2 08/20 Comp Metabolic Ozb787 BUN 13 mg/dL 08/20/2017 Comp Metabolic Mkg418 B/ C Ratio 13.5 Ratio 08/20/2017 Comp Metabolic Flx750 CA LCIUM 9.2 mg/dL 08/20/2017 Comp Metabolic Rwf456 AL K PHOS 69 U/L 08/20/2017 Comp Metabolic Ftk443 T(SGOT) 18 U/L 08/20/2017 Comp Metabolic Ols653 AL T(SGPT) 19 U/L 08/20/2017 Comp Metabolic Slw701 BI LI T 0.6 mg/dL 08/20/2017 Comp Metabolic Nfb190 AL BUMIN 4.0 g/dL 08/20/2017 Comp Metabolic Juz829 TP RO 6.6 g/dL 08/20/2017 Comp Metabolic Fhc854 GL OB 2.6 g/dL 08/20/2017 Comp Metabolic Smn953 A/ G Ratio 1.5 Ratio 08/20/2017 Comp Metabolic Lrl444 Os mo 275 mOsmo 08/20/2017 Vitamin D 25 Oh Vyj0637 VITAMIN D, 25 HYDROXY 30.96 ng/mL 08/20/2017 B12 Rzd032 B12 >1500.00 pg/ml 02/22/2017 Cbc With Differential [...] 35.7 pg 02/20/2017 Cbc With Differential Ord2 [place]% 6.3 % 02/20/2017 Cbc With Differential Ord2 [...] 3.19 K/ul 02/20/2017 Cbc With Differential Ord2 [place] ABS# 0.5 K/ul 02/20/2017 Cbc With Differential Ord2 [place] ABS# 0.4 K/ul 02/20/2017 Cbc With Differential Ord2 Baso ABS# 0.0 K/ul 02/20/2017 Comp Metabolic Kti927 NA 138 mEq/L 02/20/2017 Comp Metabolic Nbj076 K 4.5 mEq/L 02/20/2017 Comp Metabolic Alq104 CL 101 mEq/L 02/20/2017 Comp Metabolic Dwd859 CO2 31.0 mEq/L 02/20/2017 Comp Metabolic Fpa076 AN ION GAP 11 02/20/2017 Comp Metabolic Jis966 GL UCOSE 120 mg/dL 02/20/2017 Comp Metabolic Rzg875 Cr eat 0.9 mg/dL 02/20/2017 Comp Metabolic Ztp677 eG FR 83 ml/min/1.73m2 02/20 Comp Metabolic Pgk120 BUN 15 mg/dL 02/20/2017 Comp Metabolic Ght690 B/ C Ratio 16.1 Ratio 02/20/2017 Comp Metabolic Vys642 CA LCIUM 9.1 mg/dL 02/20/2017 Comp Metabolic Rlg721 AL K PHOS 67 U/L 02/20/2017 Comp Metabolic Dng783 T(SGOT) 15 U/L 02/20/2017 Comp Metabolic Amg351 AL T(SGPT) 16 U/L 02/20/2017 Comp Metabolic Nid652 BI LI T 0.5 mg/dL 02/20/2017 Comp Metabolic Amh564 AL BUMIN 4.0 g/dL 02/20/2017 Comp Metabolic Fmu169 TP RO 6.4 g/dL 02/20/2017 Comp Metabolic Gvs680 GL OB 2.4 g/dL 02/20/2017 Comp Metabolic Dds361 A/ G Ratio 1.7 Ratio 02/20/2017 Comp Metabolic Lgi042 Os mo 278 mOsmo 02/20/2017 Tsh Ord6 hTSH II 2.05 uIU/mL 02/20/2017 %Hba1C Ahm502 % HbA1c 34418-4 7.6 % 02/20/2017 %Hba1C Eql156 Gluc Ave 171 mg/dL 02/20/2017 Vitamin D 25 Oh Ujq2958 VITAMIN D, 25 HYDROXY 44.40 ng/mL 12/21/2016 Comp Metabolic Kfh793 NA 131 mEq/L 12/21/2016 Comp Metabolic Hrd236 K 4.2 mEq/L 12/21/2016 Comp Metabolic Qcr242 CL 97 mEq/L 12/21/2016 Comp Metabolic Aii855 CO2 27.0 mEq/L 12/21/2016 Comp Metabolic Rlr588 AN ION GAP 11 12/21/2016 Comp Metabolic Gru970 GL UCOSE 266 mg/dL 12/21/2016 Comp Metabolic Thf971 Cr eat 0.9 mg/dL 12/21/2016 Comp Metabolic Whf958 eG FR 88 ml/min/1.73m2 12/21 Comp Metabolic Fgv986 BUN 12 mg/dL 12/21/2016 Comp Metabolic Jya199 B/ C Ratio 13.6 Ratio 12/21/2016 Comp Metabolic Viq302 CA LCIUM 8.6 mg/dL 12/21/2016 Comp Metabolic Ncx161 AL K PHOS 69 U/L 12/21/2016 Comp Metabolic Rol711 T(SGOT) 15 U/L 12/21/2016 Comp Metabolic Ryo431 AL T(SGPT) 14 U/L 12/21/2016 Comp Metabolic Gel462 BI LI T 0.3 mg/dL 12/21/2016 Comp Metabolic Hyz073 AL BUMIN 3.7 g/dL 12/21/2016 Comp Metabolic Vvp393 TP RO 5.9 g/dL 12/21/2016 Comp Metabolic Cpg409 GL OB 2.2 g/dL 12/21/2016 Comp Metabolic Qtu717 A/ G Ratio 1.7 Ratio 12/21/2016 Comp Metabolic Ggd164 Os mo 272 mOsmo 12/21/2016 Cbc With [...] 34.6 pg 12/21/2016 Cbc With Differential Ord2 [place]% 6.9 % 12/21/2016 Cbc With Differential Ord2 [...] 2.05 K/ul 12/21/2016 Cbc With Differential Ord2 [place] ABS# 0.4 K/ul 12/21/2016 Cbc With Differential Ord2 Eos ABS# 0.2 K/ul 12/21/2016 Cbc With Differential Ord2 Baso ABS# 0.0 K/ul 12/21/2016 Comp Metabolic Tob369 NA 138 mEq/L 09/03/2016 Comp Metabolic Ncz389 K 4.5 mEq/L 09/03/2016 Comp Metabolic Syt149 CL 102 mEq/L 09/03/2016 Comp Metabolic Cza989 CO2 30.0 mEq/L 09/03/2016 Comp Metabolic Sfd589 AN ION GAP 11 09/03/2016 Comp Metabolic Grf468 GL UCOSE 113 mg/dL 09/03/2016 Comp Metabolic Iwd591 Cr eat 1.0 mg/dL 09/03/2016 Comp Metabolic Afg409 eG FR 81 ml/min/1.73m2 09/03 Comp Metabolic Oih308 BUN 10 mg/dL 09/03/2016 Comp Metabolic Auz761 B/ C Ratio 10.5 Ratio 09/03/2016 Comp Metabolic Gdj574 CA LCIUM 9.1 mg/dL 09/03/2016 Comp Metabolic Tdf553 AL K PHOS 71 U/L 09/03/2016 Comp Metabolic Fcc004 T(SGOT) 18 U/L 09/03/2016 Comp Metabolic Hnt487 AL T(SGPT) 17 U/L 09/03/2016 Comp Metabolic Rvu452 BI LI T 0.6 mg/dL 09/03/2016 Comp Metabolic Elu973 AL BUMIN 4.1 g/dL 09/03/2016 Comp Metabolic Cmy433 TP RO 6.4 g/dL 09/03/2016 Comp Metabolic Ecs533 GL OB 2.3 g/dL 09/03/2016 Comp Metabolic Vpl058 A/ G Ratio 1.8 Ratio 09/03/2016 Comp Metabolic Pkm803 Os mo 276 mOsmo 09/03/2016 Vitamin D 25 Oh Cqx7254 VITAMIN D, 25 HYDROXY 28.23 ng/mL 09/03/2016 [...] 34.4 pg 09/03/2016 Cbc With Differential Ord2 [place]% 8.9 % 09/03/2016 Cbc With Differential Ord2 [...] 3.34 K/ul 09/03/2016 Cbc With Differential Ord2 [place] ABS# 0.7 K/ul 09/03/2016 Cbc With Differential Ord2 Eos ABS# 0.4 K/ul 09/03/2016 Cbc With Differential Ord2 Baso ABS# 0.0 K/ul 09/03/2016 Lipid Ord30 CHOL 120 mg/dL 09/03/2016 Lipid Ord30 HDL 33.0 mg/dl 09/03/2016 Lipid Ord30 TRIG 161 mg/dL 09/03/2016 Lipid Ord30 LDL 55 mg/dL 09/03/2016 Lipid Ord30 C/HDL 3.6 Ratio 09/03/2016 %Hba1C Gxn566 % HbA1c 16546-7 7.5 % 09/03/2016 %Hba1C Olo302 Gluc Ave 169 mg/dL 09/03/2016 Tsh Ord6 hTSH II 1.50 uIU/mL 05/23/2016 %Hba1C Pty841 % HbA1c 66102-7 7.6 % 05/23/2016 %Hba1C Ogf857 Gluc Ave 171 mg/dL 05/23/2016 Comp Metabolic Rkh925 NA 135 mEq/L 05/23/2016 Comp Metabolic Wie511 K 4.4 mEq/L 05/23/2016 Comp Metabolic Rei849 CL 99 mEq/L 05/23/2016 Comp Metabolic Rgx613 CO2 28.0 mEq/L 05/23/2016 Comp Metabolic Hby215 AN ION GAP 12 05/23/2016 Comp Metabolic Eya539 GL UCOSE 257 mg/dL 05/23/2016 Comp Metabolic Vqp030 Cr eat 0.8 mg/dL 05/23/2016 Comp Metabolic Aty943 eG FR 95 ml/min/1.73m2 05/23 Comp Metabolic Ibq955 BUN 11 mg/dL 05/23/2016 Comp Metabolic Aje604 B/ C Ratio 13.3 Ratio 05/23/2016 Comp Metabolic Wpy406 CA LCIUM 9.0 mg/dL 05/23/2016 Comp Metabolic Hqj488 AL K PHOS 82 U/L 05/23/2016 Comp Metabolic Asn756 T(SGOT) 21 U/L 05/23/2016 Comp Metabolic Lss962 AL T(SGPT) 20 U/L 05/23/2016 Comp Metabolic Igw717 BI LI T 0.3 mg/dL 05/23/2016 Comp Metabolic Jzc162 AL BUMIN 4.0 g/dL 05/23/2016 Comp Metabolic Qlj474 TP RO 6.4 g/dL 05/23/2016 Comp Metabolic Juy850 GL OB 2.4 g/dL 05/23/2016 Comp Metabolic Biq868 A/ G Ratio 1.6 Ratio 05/23/2016 Comp Metabolic Yql243 Os mo 278 mOsmo 05/23/2016 Cbc With [...] 34.5 pg 05/23/2016 Cbc With Differential Ord2 [place]% 6.1 % 05/23/2016 Cbc With Differential Ord2 [...] 2.38 K/ul 05/23/2016 Cbc With Differential Ord2 [place] ABS# 0.4 K/ul 05/23/2016 Cbc With Differential Ord2 Eos ABS# 0.2 K/ul 05/23/2016 Cbc With Differential Ord2 Baso ABS# 0.0 K/ul 05/23/2016 B12 Svc367 B12 597.00 pg/ml 05/23/2016 Metabolic Ord15 NA [...] 0.92 uIU/mL 07/29/2015 Vitamin D 25 Oh Tzs6881 VITAMIN D, 25 HYDROXY 26.93 ng/mL 07/29/2015 %Hba1C Uae649 % HbA1c 93430-4 8.8 % 07/29/2015 %Hba1C Gti216 Gluc Ave 206 mg/dL 07/29/2015 Cbc With [...] Ord2 RDW 14.9 % 07/29/2015 Comp Metabolic Yze298 NA 138 mEq/L 07/29/2015 Comp Metabolic Vek890 K 4.4 mEq/L 07/29/2015 Comp Metabolic Qxs386 CL 102 mEq/L 07/29/2015 Comp Metabolic Dxe925 CO2 28.0 mEq/L 07/29/2015 Comp Metabolic Fae360 AN ION GAP 12 07/29/2015 Comp Metabolic Pch331 GL UCOSE 261 mg/dL 07/29/2015 Comp Metabolic Hpz526 Cr eat 1.0 mg/dL 07/29/2015 Comp Metabolic Ttd589 eG FR 77 ml/min/1.73m2 07/29 Comp Metabolic Cxy371 BUN 13 mg/dL 07/29/2015 Comp Metabolic Tto681 B/ C Ratio 13.0 Ratio 07/29/2015 Comp Metabolic Vdx739 CA LCIUM 9.1 mg/dL 07/29/2015 Comp Metabolic Fdu775 AL K PHOS 64 U/L 07/29/2015 Comp Metabolic Gnt477 T(SGOT) 20 U/L 07/29/2015 Comp Metabolic Npi965 AL T(SGPT) 22 U/L 07/29/2015 Comp Metabolic Hzb812 BI LI T 0.4 mg/dL 07/29/2015 Comp Metabolic Rug118 AL BUMIN 4.0 g/dL 07/29/2015 Comp Metabolic Vtk077 TP RO 6.1 g/dL 07/29/2015 Comp Metabolic Pml513 GL OB 2.1 g/dL 07/29/2015 Comp Metabolic Rjj950 A/ G Ratio 1.9 Ratio 07/29/2015 Comp Metabolic Sii321 Os mo 285 mOsmo 07/29/2015 Cbc With [...] Ord2 RDW 13.1 % 05/06/2015 Comp Metabolic Mnq029 NA 134 mEq/L 05/06/2015 Comp Metabolic Rty314 K 4.4 mEq/L 05/06/2015 Comp Metabolic Dqe311 CL 98 mEq/L 05/06/2015 Comp Metabolic Zhp925 CO2 29.0 mEq/L 05/06/2015 Comp Metabolic Yjq535 AN ION GAP 11 05/06/2015 Comp Metabolic Wao551 GL UCOSE 321 mg/dL 05/06/2015 Comp Metabolic Kws888 Cr eat 1.0 mg/dL 05/06/2015 Comp Metabolic Evu570 eG FR 78 ml/min/1.73m2 05/06 Comp Metabolic Aes475 BUN 20 mg/dL 05/06/2015 Comp Metabolic Roe377 B/ C Ratio 20.4 Ratio 05/06/2015 Comp Metabolic Pwt780 CA LCIUM 9.5 mg/dL 05/06/2015 Comp Metabolic Nsg597 AL K PHOS 62 U/L 05/06/2015 Comp Metabolic Hol526 T(SGOT) 21 U/L 05/06/2015 Comp Metabolic Dkb420 AL T(SGPT) 37 U/L 05/06/2015 Comp Metabolic Epa310 BI LI T 0.4 mg/dL 05/06/2015 Comp Metabolic Bhj086 AL BUMIN 3.8 g/dL 05/06/2015 Comp Metabolic Pnt660 TP RO 6.1 g/dL 05/06/2015 Comp Metabolic Aqq771 GL OB 2.3 g/dL 05/06/2015 Comp Metabolic Kxn384 A/ G Ratio 1.7 Ratio 05/06/2015 Comp Metabolic Pgv393 Os mo 283 mOsmo 05/06/2015 Tsh Ord6 hTSH II 1.65 uIU/mL 02/18/2015 B12 Ntj555 B12 605.00 pg/ml 02/18/2015 %Hba1C Qfc178 % HbA1c 40157-1 8.3 % 02/18/2015 %Hba1C Yuz862 Gluc Ave 192 mg/dL 02/18/2015 Cbc With [...] Ord2 RDW 13.9 % 02/17/2015 Comp Metabolic Kqu178 NA 137 mEq/L 02/17/2015 Comp Metabolic Tle487 K 4.4 mEq/L 02/17/2015 Comp Metabolic Tyc412 CL 100 mEq/L 02/17/2015 Comp Metabolic Zrt235 CO2 31.0 mEq/L 02/17/2015 Comp Metabolic Dbe824 AN ION GAP 10 02/17/2015 Comp Metabolic Vve027 GL UCOSE 307 mg/dL 02/17/2015 Comp Metabolic Xdu738 Cr eat 1.0 mg/dL 02/17/2015 Comp Metabolic Waw744 eG FR 74 ml/min/1.73m2 02/17 Comp Metabolic Hoy309 BUN 22 mg/dL 02/17/2015 Comp Metabolic Qzl602 B/ C Ratio 21.4 Ratio 02/17/2015 Comp Metabolic Nux051 CA LCIUM 9.5 mg/dL 02/17/2015 Comp Metabolic Nrx502 AL K PHOS 78 U/L 02/17/2015 Comp Metabolic Kzb589 T(SGOT) 18 U/L 02/17/2015 Comp Metabolic Idj898 AL T(SGPT) 32 U/L 02/17/2015 Comp Metabolic Dzb280 BI LI T 0.5 mg/dL 02/17/2015 Comp Metabolic Pcb922 AL BUMIN 4.3 g/dL 02/17/2015 Comp Metabolic Zkf748 TP RO 6.7 g/dL 02/17/2015 Comp Metabolic Nti437 GL OB 2.4 g/dL 02/17/2015 Comp Metabolic Heg155 A/ G Ratio 1.8 Ratio 02/17/2015 Comp Metabolic Bhr196 Os mo 289 mOsmo 02/17/2015 Review of [...] 04/2015 Neurologic gait abnormality 02/17/2015 Psychiatric anxiety 0704/2015 Psychiatric No depression 02/17/2015 Respiratory daytime hypersomnolence [...] lips 10/17/2018 None Full Exam - General 1995 [...] General 1995 Eyes conjunctiva/eyelids Overall: cornea clear 09/02/2018 None [...] visualized 01/21/2017 None Full Exam - General 1995 Ears/Nose/Throat lips/teeth/gingiva Overall: benign lips 01/21/2017 None [...] inspection of skin Location: face 03/07/2015 on jew, cheeks,actinic keratosis with irritation on left cheek - left jew - croptherapy on these two lesions - [...] Procedure Codes Date THER/PROPH/DIAG INJ SC/IM CPT-4: 37217 01/01/2019 THER/PROPH/DIAG INJ SC/IM CPT-4: 66258 12/17/2018 THER/PROPH/DIAG INJ SC/IM CPT-4: 60590 12/02/2018 THER/PROPH/DIAG INJ SC/IM CPT-4: 67789 11/18/2018 THER/PROPH/DIAG INJ SC/IM CPT-4: 91077 11/04/2018 THER/PROPH/DIAG INJ SC/IM CPT-4: 87451 10/14/2018 THER/PROPH/DIAG INJ SC/IM CPT-4: 63947 10/03/2018 THER/PROPH/DIAG INJ SC/IM CPT-4: 99331 09/23/2018 THER/PROPH/DIAG INJ SC/IM CPT-4: 25572 09/02/2018 THER/PROPH/DIAG INJ SC/IM CPT-4: 54707 08/21/2018 THER/PROPH/DIAG INJ SC/IM CPT-4: 45608 08/08/2018 THER/PROPH/DIAG INJ SC/IM CPT-4: 48014 07/28/2018 THER/PROPH/DIAG INJ SC/IM CPT-4: 41463 07/16/2018 THER/PROPH/DIAG INJ SC/IM CPT-4: 08104 07/02/2018 PPPS, SUBSEQ VISIT CPT- 4: G0439 06/30/2018 THER/PROPH/DIAG INJ SC/IM CPT-4: 05529 06/24/2018 THER/PROPH/DIAG INJ SC/IM CPT-4: 83345 06/13/2018 ADMIN INFLUENZA VIRU S VAC CPT-4: G0008 06/06/2018 FLU VACC PRSV FREE I NC ANTIG CPT-4: 43889 06/06/2018 THER/PROPH/DIAG INJ SC/IM CPT-4: 18711 06/05/2018 THER/PROPH/DIAG INJ SC/IM CPT-4: 89449 05/30/2018 THER/PROPH/DIAG INJ SC/IM CPT-4: 49167 05/22/2018 THER/PROPH/DIAG INJ SC/IM CPT-4: 85985 05/12/2018 THER/PROPH/DIAG INJ SC/IM CPT-4: 17200 05/02/2018 THER/PROPH/DIAG INJ SC/IM CPT-4: 79931 04/24/2018 THER/PROPH/DIAG INJ SC/IM CPT-4: 05332 04/17/2018 KETOROLAC TROMETHAMI NE INJ CPT-4: J1885 03/07/2018 URINALYSIS NONAUTO W /O SCOPE CPT-4: 22926 03/07/2018 THER/PROPH/DIAG INJ SC/IM CPT-4: 99136 02/20/2018 TRIAMCINOLONE ACET I [place] NOS CPT-4: J3301 01/30/2018 THER/PROPH/DIAG INJ SC/IM CPT-4: 50547 01/17/2018 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 3-[address]: 063501288 CPT-4: G0436 04/25/2017 ADMIN INFLUENZA VIRU S VAC CPT-4: G0008 04/25/2017 ADMIN PNEUMOCOCCAL V ACCINE SNOMED CT: 68688963 CPT-4: G0009 04/25/2017 PNEUMOCOCCAL VACC [address]: 31854778 CPT-4: 89871 04/25/2017 FLU VACC PRSV FREE I NC ANTIG CPT-4: 38910 04/25/2017 ADMIN INFLUENZA VIRU S VAC CPT-4: G0008 05/22/2016 FLU VACC 4 TELLY 3 YRS PLUS IM Formatting Model/CDA Sections, Assigned to/Angela Clemons SNOMED CT: 17577809 CPT-4: 70390Bbsfjna 05/22/2016 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 3-[address]: 390068075 CPT-4: G0436 11/25/2015 URINALYSIS NONAUTO W /O SCOPE CPT-4: 92663 05/09/2015 TRIAMCINOLONE ACET I [place] NOS CPT-4: J3301 04/12/2015 DESTRUCT PREMALG LESION CPT-4: 58374 03/07/2015 DESTRUCT PREMALG LES 2-14 CPT-4: 03134 03/07/2015 REMOVE IMPACTED EAR WAX UNI CPT-4: 87617 12/31/2014 THER/PROPH/DIAG INJ SC/IM CPT-4: 83681 12/23/2014 TRIAMCINOLONE ACET I [place] NOS CPT-4: J3301 12/23/2014 Vital Signs Date Vital 12/02/2018 Blood Pressure 1: 140/70 Code: 8480-6 BMI: 21.9 Code: 65674-3 Heart Rate 1: 61 bpm Height: 5'11" SpO2: 94% Weight: 157 lbs 10/17/2018 Blood Pressure 1: 124/54 Code: 8480-6 BMI: 21.9 Code: 79560-2 Heart Rate 1: 64 bpm Height: 5'11" SpO2: 93% Weight: 157 lbs 09/02/2018 Blood Pressure 1: 140/80 Code: 8480-6 BMI: 21.2 Code: 21980-1 Heart Rate 1: 68 bpm Height: 5'11" SpO2: 97% Weight: 152 lbs 06/30/2018 BMI: 21.8 Code: 38889-4 Height: 5'11" Weight: 156 lbs 06/06/2018 Blood Pressure 1: 128/76 Code: 8480-6 BMI: 22.0 Code: 98701-5 Heart Rate 1: 81 bpm Height: 5'11" SpO2: 92% Weight: 158 lbs 04/04/2018 Blood Pressure 1: 124/70 Code: 8480-6 BMI: 20.8 Code: 12887-2 Heart Rate 1: 65 bpm Height: 5'11" SpO2: 95% Weight: 149 lbs 03/07/2018 Blood Pressure 1: 148/70 Code: 8480-6 BMI: 21.2 Code: 17203-1 Heart Rate 1: 66 bpm Height: 5'11" SpO2: 94% Weight: 152 lbs 02/20/2018 Blood Pressure 1: 134/58 Code: 8480-6 BMI: 20.5 Code: 02036-1 Heart Rate 1: 61 bpm Height: 5'11" SpO2: 92% Weight: 147 lbs 01/30/2018 Blood Pressure 1: 158/68 Code: 8480-6 BMI: 21.5 Code: 11758-2 Heart Rate 1: 71 bpm Height: 5'11" SpO2: 92% Weight: 154 lbs 01/14/2018 Blood Pressure 1: 156/70 Code: 8480-6 Height: Weight: 01/13/2018 Blood Pressure 1: 148/62 Code: 8480-6 BMI: 20.9 Code: 67373-1 Heart Rate 1: 54 bpm Height: 5'11" SpO2: 97% Weight: 150 lbs 11/19/2017 Blood Pressure 1: 150/60 Code: 8480-6 BMI: 21.8 Code: 25649-0 Heart Rate 1: 63 bpm Height: 5'11" SpO2: 98% Weight: 156 lbs 10/02/2017 Blood Pressure 1: 168/60 Code: 8480-6 BMI: 21.9 Code: 41044-5 Heart Rate 1: 52 bpm Height: 5'11" SpO2: 97% Weight: 157 lbs 07/23/2017 Blood Pressure 1: 170/70 Code: 8480-6 BMI: 21.8 Code: 60075-0 Heart Rate 1: 65 bpm Height: 5'11" SpO2: 98% Weight: 156 lbs 04/25/2017 Blood Pressure 1: 138/60 Code: 8480-6 BMI: 21.6 Code: 65258-1 Heart Rate 1: 55 bpm Height: 5'11" SpO2: 93% Weight: 155 lbs 02/19/2017 Blood Pressure 1: 138/64 Code: 8480-6 BMI: 21.3 Code: 52532-1 Heart Rate 1: 52 bpm Height: 5'11" SpO2: 96% Weight: 152 lbs 8 oz 01/21/2017 Blood Pressure 1: 160/68 Code: 8480-6 BMI: 21.3 Code: 83964-4 Heart Rate 1: 62 bpm Height: 5'11" SpO2: 96% Weight: 153 lbs 12/20/2016 Blood Pressure 1: 124/66 Code: 8480-6 BMI: 21.5 Code: 27809-1 Height: 5'11" Weight: 154 lbs 08/23/2016 Blood Pressure 1: 142/52 Code: 8480-6 BMI: 21.2 Code: 78007-0 Heart Rate 1: 54 bpm Height: 5'11" SpO2: 96% Weight: 152 lbs 05/22/2016 Blood Pressure 1: 130/76 Code: 8480-6 BMI: 21.5 Code: 28270-5 Heart Rate 1: 78 bpm Height: 5'11" SpO2: 92% Weight: 154 lbs 02/24/2016 Blood Pressure 1: 128/80 Code: 8480-6 BMI: 21.2 Code: 44873-9 Heart Rate 1: 74 bpm Height: 5'11" SpO2: 96% Weight: 152 lbs 01/27/2016 Blood Pressure 1: 144/60 Code: 8480-6 BMI: 21.2 Code: 11314-6 Heart Rate 1: 74 bpm Height: 5'11" SpO2: 97% Weight: 152 lbs 11/25/2015 Blood Pressure 1: 110/52 Code: 8480-6 BMI: 21.9 Code: 24849-3 Heart Rate 1: 65 bpm Height: 5'11" SpO2: 92% Weight: 157 lbs 07/28/2015 Blood Pressure 1: 138/62 Code: 8480-6 BMI: 21.8 Code: 97347-7 Heart Rate 1: 63 bpm Height: 5'11" SpO2: 91% Weight: 156 lbs 05/26/2015 Blood Pressure 1: 120/58 Code: 8480-6 BMI: 21.5 Code: 19515-0 Heart Rate 1: 99 bpm Height: 5'11" SpO2: 96% Weight: 154 lbs 05/06/2015 Blood Pressure 1: 120/58 Code: 8480-6 BMI: 21.2 Code: 24400-1 Heart Rate 1: 66 bpm Height: 5'11" SpO2: 96% Weight: 152 lbs 04/25/2015 Blood Pressure 1: 136/62 Code: 8480-6 BMI: 21.2 Code: 97864-1 Heart Rate 1: 63 bpm Height: 5'11" SpO2: 97% Weight: 152 lbs 04/12/2015 Blood Pressure 1: 160/58 Code: 8480-6 BMI: 21.6 Code: 57085-8 Heart Rate 1: 62 bpm Height: 5'11" Weight: 155 lbs 03/24/2015 Blood Pressure 1: 138/68 Code: 8480-6 BMI: 22.0 Code: 00604-2 Heart Rate 1: 65 bpm Height: 5'11" SpO2: 96% Weight: 158 lbs 03/07/2015 Blood Pressure 1: 116/52 Code: 8480-6 BMI: 22.2 Code: 26449-6 Heart Rate 1: 64 bpm Height: 5'11" SpO2: 97% Weight: 159 lbs 02/17/2015 Blood Pressure 1: 148/58 Code: 8480-6 BMI: 21.3 Code: 37807-6 Heart Rate 1: 63 bpm Height: 5'11" SpO2: 97% Weight: 153 lbs 12/31/2014 Blood Pressure 1: 100/60 Code: 8480-6 BMI: 21.8 Code: 89601-2 Heart Rate 1: 68 bpm Height: 5'11" Weight: 156 lbs 12/23/2014 Blood Pressure 1: 148/64 Code: 8480-6 BMI: 21.9 Code: 27939-7 Heart Rate 1: 64 bpm Height: 5'11" [...] daily 11/25/2015 None cough Location in the [facility] 11/25/2015 None cough Quality acute [...] Encounters Encounter Performer Loca tion Codes Date ([id number]) 20273 EST. 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 P ATIENT, LEVEL III Diagnosis: Orthostatic hypotension[ICD10: I95.1] Diagnosis: Low back pain[ICD10: M54.5] Diagnosis: Unsteadiness on feet[ICD10: R26.81] Karmen Ash MD, [facility] CPT-4: 10167 10/17/2018 ([id number]) 29951 EST. 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 P ATIENT, LEVEL IV Diagnosis: Cellulitis of face[ICD10: L03.211] Diagnosis: Type 2 diabetes mellitus without complications[ICD10: E11.9] Diagnosis: Essential (primary) hypertension[ICD10: I10] Diagnosis: Encounter for immunization[ICD10: Z23] Karmen Ash MD, [facility] CPT-4: 42409 06/06/2018 ([id number]) 25122 EST. 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 P ATIENT, LEVEL III Diagnosis: Low back pain[ICD10: M54.5] Diagnosis: Dysuria[ICD10: R30.0] Karmen Ash MD, [facility] CPT-4: 65953 03/07/2018 ([id number]) 54914 EST. 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 P ATIENT, LEVEL III Diagnosis: Chronic obstructive pulmonary disease with (acute) exacerbation[ICD10: J44.1] Karmen Ash MD, [facility] CPT-4: 66598 01/30/2018 71397 EST. PATIENT, LEVEL II Diagnosis: Insect bite (nonvenomous), left lower leg, initial encounter[ICD10: S80.862A] Karmen Ash MD, [facility] CPT-4: 90368 01/14/2018 ([id number]) 54146 EST. P ATIENT, LEVEL IV Diagnosis: Type 2 diabetes mellitus with hyperglycemia[ICD10: E11.65] Diagnosis: Chronic obstructive pulmonary disease, unspecified[ICD10: J44.9] Diagnosis: Other fatigue[ICD10: R53.83] Karmen Ash MD, [facility] CPT- 4: 57642 01/13/2018 ([id number]) 75671 EST. P ATIENT, LEVEL IV Diagnosis: Type 2 diabetes mellitus with hyperglycemia[ICD10: E11.65] Diagnosis: Vitamin D deficiency, unspecified[ICD10: E55.9] Diagnosis: Essential (primary) hypertension[ICD10: I10] Diagnosis: Abdominal distension (gaseous)[ICD10: R14.0] Diagnosis: Drug induced constipation[ICD10: K59.03] Karmen Ash MD, [facility] CPT-4: 44453 11/19/2017 39683 EST. PATIENT, LEVEL IV Diagnosis: Low back pain[ICD10: M54.5] Diagnosis: Chronic obstructive pulmonary disease, unspecified[ICD10: J44.9] Brunilda Ash MD, [facility] CPT-4: 18991 10/02/2017 ([id number]) 97600 EST. P ATIENT, LEVEL IV Diagnosis: Essential (primary) hypertension[ICD10: I10] Diagnosis: Type 2 diabetes mellitus with hyperglycemia[ICD10: E11.65] Diagnosis: Vitamin D deficiency, unspecified[ICD10: E55.9] Diagnosis: Mixed hyperlipidemia[ICD10: E78.2] Karmen Ash MD, [facility] CPT-4: 85835 07/23/2017 ([id number]) 93960 EST. P ATIENT, LEVEL IV Diagnosis: Essential (primary) hypertension[ICD10: I10] Diagnosis: Type 2 diabetes mellitus with hyperglycemia[ICD10: E11.65] Diagnosis: Chronic obstructive pulmonary disease, unspecified[ICD10: J44.9] Diagnosis: Nicotine dependence, unspecified, uncomplicated[ICD10: F17.200] Diagnosis: Encounter for immunization[ICD10: Z23] Karmen Ash MD, [facility] CPT-4: 72626 04/25/2017 ([id number]) 11484 EST. P ATIENT, LEVEL IV Diagnosis: Type 2 diabetes mellitus with hyperglycemia[ICD10: E11.65] Diagnosis: Essential (primary) hypertension[ICD10: I10] Diagnosis: Anemia, unspecified[ICD10: D64.9] Karmen Ash MD, [facility] CPT- 4: 05677 02/19/2017 ([id number]) 12915 EST. P ATIENT, LEVEL IV Diagnosis: Slow transit constipation[ICD10: K59.01] Diagnosis: Gastro-esophageal reflux disease without esophagitis[ICD10: K21.9] Diagnosis: Essential (primary) hypertension[ICD10: I10] Karmen Ash MD, [facility] CPT-4: 82094 01/21/2017 ([id number]) 01180 EST. P ATIENT, LEVEL IV Diagnosis: Type 2 diabetes mellitus with hyperglycemia[ICD10: E11.65] Diagnosis: Vitamin D deficiency, unspecified[ICD10: E55.9] Diagnosis: Essential (primary) hypertension[ICD10: I10] Diagnosis: Chronic obstructive pulmonary disease, unspecified[ICD10: J44.9] Karmen Ash MD, [facility] CPT-4: 44839 12/20/2016 ([id number]) 34016 EST. P ATIENT, LEVEL IV Diagnosis: Type 2 diabetes mellitus with hyperglycemia[ICD10: E11.65] Diagnosis: Essential (primary) hypertension[ICD10: I10] Diagnosis: Mixed hyperlipidemia[ICD10: E78.2] Diagnosis: Vitamin D deficiency, unspecified[ICD10: E55.9] Karmen Ash MD, [facility] CPT-4: 27250 08/23/2016 ([id number]) 11936 EST. P ATIENT, LEVEL IV Diagnosis: Type 2 diabetes mellitus with hyperglycemia[ICD10: E11.65] Diagnosis: Essential (primary) hypertension[ICD10: I10] Diagnosis: Chronic obstructive pulmonary disease, unspecified[ICD10: J44.9] Karmen Ash MD, [facility] CPT-4: 62349 05/22/2016 ([id number]) 55842 EST. P ATIENT, LEVEL III Diagnosis: Dysuria[ICD10: R30.0] Diagnosis: Essential (primary) hypertension[ICD10: I10] Karmen Ash MD, [facility] CPT-4: 84490 02/24/2016 ([id number]) 95180 EST. P ATIENT, LEVEL IV Diagnosis: Gastro-esophageal reflux disease without esophagitis[ICD10: K21.9] Diagnosis: Slow transit constipation[ICD10: K59.01] Diagnosis: Type 2 diabetes mellitus with hyperglycemia[ICD10: E11.65] Karmen Ash MD, [facility] CPT-4: 04292 01/27/2016 ([id number]) 78870 EST. P ATIENT, LEVEL IV Diagnosis: Essential (primary) hypertension[ICD10: I10] Diagnosis: Type 2 diabetes mellitus with hyperglycemia[ICD10: E11.65] Diagnosis: Vitamin D deficiency, unspecified[ICD10: E55.9] Diagnosis: Chronic obstructive pulmonary disease, unspecified[ICD10: J44.9] Diagnosis: Mixed hyperlipidemia[ICD10: E78.2] Diagnosis: Tobacco use[ICD10: Z72.0] Karmen Ash MD, [facility] CPT- 4: 77427 11/25/2015 ([id number]) 25016 EST. P ATIENT, LEVEL IV Diagnosis: Type 2 diabetes mellitus with hyperglycemia[ICD10: E11.65] Diagnosis: Essential (primary) hypertension[ICD10: I10] Diagnosis: Vitamin D deficiency, unspecified[ICD10: E55.9] Karmen Ash MD, [facility] CPT-4: 76449 07/28/2015 ([id number]) 53636 EST. P ATIENT, LEVEL III Diagnosis: Type 2 diabetes mellitus with hyperglycemia[ICD10: E11.65] Diagnosis: Essential (primary) hypertension[ICD10: I10] Violeta Ash MD, [facility] CPT-4: 99419 05/26/2015 ([id number]) 43016 EST. P ATIENT, LEVEL III Diagnosis: DIABETES TYPE II[ICD9: 250.00] Diagnosis: COPD (chronic obstructive pulmonary disease)[ICD9: 496] Diagnosis: ESSENTIAL HYPERTENSION[ICD9: 401.9] Diagnosis: Cough[ICD9: 786.2] Violeta Ash MD, [facility] CPT-4: 98939 05/06/2015 ([id number]) 30154 EST. P ATIENT, LEVEL III Diagnosis: COPD (chronic obstructive pulmonary disease)[ICD9: 496] Diagnosis: DIABETES TYPE II[ICD9: 250.00] Diagnosis: Muscle ache[ICD9: 729.1] Karmen Ash MD, [facility] CPT- 4: 41087 04/25/2015 ([id number]) 35056 EST. P ATIENT, LEVEL III Diagnosis: ACTINIC KERATOSIS[ICD9: 702.0] Diagnosis: COPD (chronic obstructive pulmonary disease)[ICD9: 496] Diagnosis: DIABETES TYPE II[ICD9: 250.00] Diagnosis: ACUTE URI[ICD9: 465.9] Violeta Ash MD, [facility] CPT-4: 91776 04/12/2015 ([id number]) 84021 EST. P ATIENT, LEVEL III Diagnosis: DIABETES TYPE II[ICD9: 250.00] Violeta Ash MD, [facility] CPT-4: 43592 03/24/2015 ([id number]) 98718 EST. P ATIENT, LEVEL IV Diagnosis: DIABETES TYPE II[ICD9: 250.00] Diagnosis: Hypoglycemia[ICD9: 251.2] Diagnosis: Skin texture changes[ICD9: 782.8] Violeta Ash MD, [facility] CPT-4: 21532 03/07/2015 ([id number]) 86675 EST. P ATIENT, LEVEL IV Diagnosis: COPD (chronic obstructive pulmonary disease)[ICD9: 496] Diagnosis: Fatigue[ICD9: 780.79] Diagnosis: Insulin dependent diabetes mellitus[ICD9: 250.00] Diagnosis: Unsteady gait[ICD9: 781.2] [facility] CPT-4: 10230 02/17/2015 ([id number]) 13452 EST. [facility] Diagnosis: BPPV (benign paroxysmal positional vertigo)[ICD9: 386.11] Diagnosis: Impacted cerumen[ICD9: 380.4] Diagnosis: ESSENTIAL HYPERTENSION[ICD9: 401.9] Diagnosis: Insulin dependent diabetes mellitus[ICD9: 250.00] [facility] CPT-4: 31848 12/23/2014 ([id number]) [facility] LEVEL 4 Diagnosis: Insulin dependent diabetes mellitus[ICD9: 250.00] Diagnosis: BPPV (benign paroxysmal positional vertigo)[ICD9: 386.11] Diagnosis: COPD (chronic obstructive pulmonary disease)[ICD9: 496] Diagnosis: Tobacco abuse[ICD9: 305.1] Diagnosis: Osteoarthritis[ICD9: 715.90] [facility] CPT- 4: 67738 12/09/2014 Plan of Care Planned Activity Notes C odes Status Date Patient Education: Patient Medication Summary Completed 01/01/2019 Appointment: [place] 12/17/2018 Patient Education: Patient Medication Summary Completed [...] as directed 12/02/2018 Appointment: Karmen Espinal WPtel: [address] [place], [place] [phone] (30 min) [facility] 12/02/2018 Patient Education: Patient Medication Summary Completed 12/02/2018 Patient Education: Diabetes Completed 12/02/2018 Appointment: Injection 11/18/2018 Patient Education: Patient Medication Summary Completed 11/18/2018 Appointment: Injection 11/04/2018 Patient Education: Patient Medication Summary Completed 11/04/2018 [phone] [phone] (30 min) Complex 10/21/2018 Visit Plan: [...] walker 10/17/2018 Appointment: [phone] [phone] (30 min) Complex 10/17/2018 Patient Education: [...] medications. 09/02/2018 Appointment: [phone] [phone] (15 min) Moderate 09/02/2018 Patient Education: [...] surrogate. 06/30/2018 Appointment: [facility]inal [facility]el[facility] [phone] [phone] [facility] - Annual Wellness Visit 06/30/2018 [...] in pain. 06/06/2018 Appointment: Karmen Espinal WPtel: [phone] (15 min) Moderate 06/06/2018 Patient Education: [...] months 04/04/2018 Appointment: Karmen Espinal WPtel: [phone] [phone] (15 min) Moderate 04/04/2018 Patient Education: Patient Medication Summary Completed 04/04/2018 Care Plan: Cbc With Differential Pending 04/04/2018 Care Plan: Testosterone repeat in 2 months Pending 04/04/2018 Appointment: Karmen Espinal WPtel: [phone] [phone] [place] (15 min) Moderate 03/25/2018 Visit Plan: Low back pain -history of kidney stone-UA negative today -increase fluids and call if pain does not resolve or if any worse. 03/07/2018 Appointment: Karmen Espinal WPtel: [phone] [phone] [place] [address] (15 min) Moderate 03/07/2018 Patient Education: Patient [...] 02/20/2018 Visit Plan: Hypertension - well con eugenie [...] 1 month 02/20/2018 Appointment: Karmen Espinal WPtel: [phone] (15 min) Moderate 02/20/2018 Patient Education: Patient Medication Summary Completed 02/20/2018 Visit Plan: COPD EXACERBATION - WOOD [employer] D is a chronic problem for [...] acute changes. 01/30/2018 Appointment: Karmen Espinal WPtel: [facility] (15 min) Moderate 01/30/2018 Patient Education: Patient Medication Summary Completed 01/30/2018 Appointment: Karmen Espinal WPtel: [address] [place] [address] (15 min) Moderate 01/28/2018 Appointment: Injection 01/17/2018 Patient Education: Patient Medication Summary Completed 01/17/2018 Visit Plan: Cellulitis - start oral antibiotics as directed, return to clinic as previously directed, call for acute change in symptoms, worsening redness, warmth, discharge. 01/14/2018 Appointment: Karmen Espinal WPtel: [facility] [address] (10 min) Simple 01/14/2018 Patient Education: [...] less controlled. 01/13/2018 Appointment: Karmen Espinal WPtel: [facility] [place] [phone] (15 min) Moderate 01/13/2018 Patient Education: Patient Medication Summary Completed 01/13/2018 Referral: Hugo Villatoro HPtel:[phone] Patient's informed. Referral info f [place]. Completed 12/04/2017 Visit Plan: Diabetes Mellitus - [...] change in blood pressure readings at home. Ceqoglxy-mfcxoi-bpnbr to see Dr Villatoro Constipation-start linzess daily 11/19/2017 Appointment: Karmen Espinal WPtel: [facility]5 [phone] (30 min) Complex 11/19/2017 Patient Education: Patient Medication Summary Completed 11/19/2017 Care Plan: Referral Order bloating, nausea SNOMED-CT : 066499339 Pending 11/19/2017 Visit Plan: Low back pain- [...] stable, monitor for acute changes. 10/02/2017 Appointment: Taiwo [phone] [phone] (15 min) Moderate 10/02/2017 Patient Education: [...] controlled. 07/23/2017 Appointment: [phone] [phone] (30 min) Complex 07/23/2017 Patient Education: [...] pack/year history 04/25/2017 Appointment: Karmen Espinal WPtel: [phone] [phone] (30 min) Complex 04/25/2017 Patient Education: Patient [...] readings are starting to become less controlled. Sjcfuc-fafbhph-xgrvk labs 02/19/2017 Appointment: Karmen Espinal WPtel: [phone] [phone] (30 min) Complex 02/19/2017 Patient Education: Patient [...] month 01/21/2017 Appointment: Karmen Espinal WPtel: [phone] [phone] (30 min) Complex 01/21/2017 Patient Education: Patient Medication Summary Completed 01/21/2017 Patient Education: Smoking and Tobacco Addiction Completed 01/21/2017 Patient Education: Hypertension Completed 01/21/2017 Care Plan: Referral Order SNOMED-CT : [id number] Pending 01/21/2017 Visit Plan: Diabetes Mellitus - hav e recommended for the patient to have follow up labs prior to the next office visit. The patient has been instructed to continue with current medications as previously directed, c ontsusie with regular FSBS monitoring to assure continued [...] changes. 12/20/2016 Appointment: Karmen Espinal WPtel: [phone] [phone] (30 min) Complex 12/20/2016 Patient Education: Patient Medication Summary Completed 12/20/2016 Patient Education: Smoking and Tobacco Addiction Completed 12/20/2016 Patient Education: Hypertension Completed 12/20/2016 Appointment: [facility]Ptel[phone] [phone] (30 min) Complex 09/06/2016 Visit Plan: [...] level 08/23/2016 Appointment: [facility]Ptel[phone] [phone] (30 min) [facility] 08/23/2016 Patient Education: Patient Medication Summary Completed [...] acute changes. 05/22/2016 Appointment: Karmen Espinal WPtel: [phone] (30 min) Complex 05/22/2016 Patient Education: Patient Medication Summary Completed 05/22/2016 Patient Education: Smoking and Tobacco Addiction Completed 05/22/2016 Care Plan: Cbc With Differential Ordered 05/22/2016 Care Plan: %Hba1C LOIN C : 64633-4 Ordered 05/22/2016 Care Plan: Tsh Ordered 05/22/2016 [...] with update 02/24/2016 Appointment: Karmen Espinal WPtel: [address] [place], [place] [phone] (30 min) Complex 02/24/2016 Patient Education: Patient [...] this regimen. 01/27/2016 Appointment: Karmen Espinal WPtel: [phone] (30 min) Complex 01/27/2016 Patient Education: [...] use medication to assist cessation. [facility] Hyperlipidemia - pt has been counseled about [...] Completed 05/06/2015 Visit Plan: COPD EXACERBATION - WOOD [employer] FIN[employer]ER D is a chronic problem for [...] POTENTIAL SIDE EFFECTS AND WORSENING OF SYMPTOMS. Xiwezmdw-rykgwmyi-JTVY SIMVASTATIN X 2 WEEKS AND CALL WITH [...] Care Plan: COMPLETE CBC AUTOMATED LOINC : 77344-6 Ordered 03/24/2015 Visit Plan: Diabetes Mellitus - [...] for removal. 03/07/2015 Appointment: Violeta Ash WPtel: [phone] (15 min) Moderate 03/07/2015 Patient [...] hearing. The wax [facility] ctitioner due to the wax [...] Care Plan: COMPLETE CBC AUTOMATED LOINC : 96278-7 Ordered 12/23/2014 Visit Plan: BPPV - Benign [...] appt 12/09/2014 Appointment: [facility]el[phone] [phone] [place] ([place] New Patient 12/09/2014 Patient Education: Patient Medication Summary Completed 12/09/2014 Patient Education: .Amazing charts Parox ysmal positional vertigo Completed 12/09/2014 Patient Education: Smoking and Tobacco Addiction Completed 12/09/2014 Referral: Villatoro Hugo HPtel:[phone] [facility] [place] Referral Appointment Requested Referral: Luis [...] snacks as discussed-follow up in 1 month jardiance 10mg daily . Hypertension - well [...] size of the lesion, increase in pain. . Cellulitis - start oral antibiotics as [...] readings are starting to become less controlled. Duvwpq-qjoqjgc-pmnaj labs . COPD -recent pneum onia-symptoms have [...] of if symptoms worsen-call saturday with update decrease glipizide t o 5mg twice daily [...] Diabetes Mellitus - controlled - per r idaliaent FSBS reports. I have recommended for the [...] change in blood pressure readings at home. Hycdendf-cqwcsa-ejzeo to see Dr Villatoro Constipation-start linzess daily [...] readings are starting to become less controlled. FLU SHOT . Diabetes Mellitus - controlled [...] POTENTIAL SIDE EFFECTS AND WORSENING OF SYMPTOMS. Jjdvpmzg-plodymcn-XPOC SIMVASTATIN X 2 WEEKS AND CALL WITH [...] low dose CT chest-60 pack/year history . Medicare Exam - to day we [...]
--- OUTSIDE RECORDS SUMMARY | 2020-03-29 08:14 | XMS REPORT | CCD ---
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 Name Role Phone PP Unavailable CCM Unavailable Summary Purpose Interface Exchange Insurance Providers Payer name Policy type / Coverage type Covered green party ID Effective Begin Date Effective End Date WPS Medicare Part B Medicare Part B [id number] Unknown Unknown [employer] Co Medicar e Part B [id number] Unknown Unkn own Family history Father Diagnosis Age At Onset Cancer Unknown Mother Diagnosis Age At Onset Cancer Unknown Social History Social History Element Codes Description Effective Dates Marital status Unknown M arried 12/09/2014 Employment Unknown Retir ed 12/09/[address]: 65004792 Currently smokes tobacco 12/09/2014 Number of years using tobacco Unknown > 50 12/09/2014 Number of cigarettes/day Unknown 30 (Pack and a half) 12/09/[address]: 188429870 Never drinks alcohol 12/09/2014 Allergies, Adverse Reactions, [...] Date Stop Date Sta tus Fill Instructions Xanax 0.5 mg tablet RxNorm: 171836 1 Tablet(s) PO TID 12/18/2018 02/15/2019 Active testosterone cypiona te 200 mg/mL intramuscular oil RxNorm: 2381299 Milliliter(s) IM 12/17/2018 12/17/2018 In active hydrocodone 5 mg-linh taminophen 325 mg tablet RxNorm: 096681 1 Tablet(s) PO Q6-8H as needed 12/15/2018 01/08/2019 Active testosterone cypiona te 200 mg/mL intramuscular oil RxNorm: 2537757 Milliliter(s) IM 12/02/2018 12/02/2018 In active testosterone cypiona te 200 mg/mL intramuscular oil RxNorm: 2876048 Milliliter(s) IM 11/18/2018 11/18/2018 In active hydrocodone 5 mg-linh taminophen 325 mg tablet RxNorm: 725686 1 Tablet(s) PO Q6-8H as needed 11/13/2018 12/07/2018 Inactive testosterone cypiona te 200 mg/mL intramuscular oil RxNorm: 6078003 1/2 Milliliter(s) IM [id number] 11/04/2018 03/03/2019 Active testosterone cypiona te 200 mg/mL intramuscular oil RxNorm: 6050000 Milliliter(s) IM 11/04/2018 11/04/2018 In active nicotine 21 mg/24 hr daily transdermal patch RxNorm: 026961 1 TD daily 10/31/2018 10/30/2018 In active nicotine 21 mg/24 hr daily transdermal patch RxNorm: 048903 1 TD daily 10/31/2018 11/29/2018 In active meclizine 25 mg tablet RxNorm: 568655 1 Tablet(s) PO Q6 PRN TAKE ONE TABLET BY MOUTH EVERY 6 HOURS NEEDED 10/17/2018 01/14/2019 Active hydrocodone 5 mg-linh taminophen 325 mg tablet RxNorm: 561102 1 Tablet(s) PO Q6-8H as needed 10/17/2018 11/10/2018 Inactive metformin 500 mg tablet RxNorm: 051731 Tablet(s) TAKE 1 TABLET BY MOUTH DAILY 10/15/2018 10/09/2019 Ac tive lisinopril 10 mg tablet RxNorm: 490469 TAKE 1 TABLET BY MOUTH TWO TIMES DAILY 10/15/2018 10/09/2019 Ac tive - First Attempt Ref: [id number] testosterone cypiona te 200 mg/mL intramuscular oil RxNorm: 6895392 Milliliter(s) IM 10/14/2018 10/14/2018 In active Xanax 0.5 mg tablet RxNorm: 916641 1 Tablet(s) PO TID 10/03/2018 11/30/2018 Inactive testosterone cypiona te 200 mg/mL intramuscular oil RxNorm: 8927900 1/2 Milliliter(s) IM weekly 10/03/2018 11/03/2018 Inactive testosterone cypiona te 200 mg/mL intramuscular oil RxNorm: 5043732 Milliliter(s) IM 10/03/2018 10/03/2018 In active testosterone cypiona te 200 mg/mL intramuscular oil RxNorm: 8122317 Milliliter(s) IM 09/23/2018 09/23/2018 In active hydrocodone 5 mg-linh taminophen 325 mg tablet RxNorm: 968208 1 Tablet(s) PO Q6-8H as needed 09/22/2018 10/16/2018 Inactive testosterone cypiona te 200 mg/mL intramuscular oil RxNorm: 0663797 1/2 Milliliter(s) IM 09/02/2018 09/02/2018 Inactive testosterone enantha te 200 mg/mL intramuscular oil RxNorm: 514246 Milliliter(s) IM 08/21/2018 08/21/2018 In active hydrocodone 5 mg-linh taminophen 325 mg tablet RxNorm: 219269 1 Tablet(s) PO Q6-8H as needed 08/21/2018 09/14/2018 Inactive testosterone cypiona te 200 mg/mL intramuscular oil RxNorm: 5714712 Milliliter(s) IM 08/08/2018 08/08/2018 In active testosterone cypiona te 200 mg/mL intramuscular oil RxNorm: 8765587 1/2 Milliliter(s) IM 07/28/2018 07/28/2018 Inactive hydrocodone 5 mg-linh taminophen 325 mg tablet RxNorm: 023855 1 Tablet(s) PO Q6-8H as needed 07/21/2018 08/14/2018 Inactive testosterone cypiona te 200 mg/mL intramuscular oil RxNorm: 963858 Milliliter(s) IM 07/16/2018 07/16/2018 In active testosterone cypiona te 200 mg/mL intramuscular oil RxNorm: 323363 Milliliter(s) IM 07/02/2018 07/02/2018 In active Xanax 0.5 mg tablet RxNorm: 335618 1 Tablet(s) PO TID 06/27/2018 08/24/2018 Inactive testosterone cypiona te 200 mg/mL intramuscular oil RxNorm: 093888 Milliliter(s) IM 06/24/2018 06/24/2018 In active hydrocodone 5 mg-linh taminophen 325 mg tablet RxNorm: 388854 1 Tablet(s) PO Q6-8H as needed 06/23/2018 07/17/2018 Inactive testosterone cypiona te 200 mg/mL intramuscular oil RxNorm: 101218 Milliliter(s) IM 06/13/2018 06/13/2018 In active testosterone cypiona te 200 mg/mL intramuscular oil RxNorm: 041718 Milliliter(s) IM 06/05/2018 06/05/2018 In active testosterone cypiona te 200 mg/mL intramuscular oil RxNorm: 7871424 1/2 Milliliter(s) IM weekly 05/30/2018 09/26/2018 Inactive testosterone cypiona te 200 mg/mL intramuscular oil RxNorm: 478652 Milliliter(s) IM 05/30/2018 05/30/2018 In active testosterone cypiona te 200 mg/mL intramuscular oil RxNorm: 385061 Milliliter(s) IM 05/22/2018 05/22/2018 In active hydrocodone 5 mg-linh taminophen 325 mg tablet RxNorm: 625297 1 Tablet(s) PO Q6-8H as needed 05/20/2018 06/13/2018 Inactive testosterone cypiona te 200 mg/mL intramuscular oil RxNorm: 304205 1/2 Milliliter(s) IM 05/12/2018 05/12/2018 Inactive testosterone cypiona te 200 mg/mL intramuscular oil RxNorm: 838915 Milliliter(s) IM 05/02/2018 05/02/2018 In active testosterone cypiona te 200 mg/mL intramuscular oil RxNorm: 427713 1/2 Milliliter(s) IM weekly 04/24/2018 05/29/2018 Inactive testosterone cypiona te 200 mg/mL intramuscular oil RxNorm: 414853 0.5 Milliliter(s) IM 04/24/2018 04/24/2018 Inactive hydrocodone 5 mg-linh taminophen 325 mg tablet RxNorm: 372701 1 Tablet(s) PO Q6-8H as needed 04/22/2018 05/16/2018 Inactive testosterone cypiona te 200 mg/mL intramuscular oil RxNorm: 218435 1/2 Milliliter(s) IM 04/17/2018 04/17/2018 Inactive testosterone cypiona te 200 mg/mL intramuscular oil RxNorm: 677567 1/2 Milliliter(s) IM weekly 04/16/2018 04/23/2018 Inactive Jardiance 10 mg tablet RxNorm: 4533903 1 Tablet(s) PO daily 04/04/2018 12/29/2018 Active Protonix 40 mg table t,delayed release RxNorm: 352662 1 Tablet(s) PO daily TAKE 1 TABLET BY MOUTH DAILY 04/04/2018 03/29/2019 Active - Ref: [id number] testosterone cypiona te 200 mg/mL intramuscular oil RxNorm: 255970 1 Milliliter(s) IM monthly 04/04/2018 04/15/2018 Inactive hydrocodone 5 mg-linh taminophen 325 mg tablet RxNorm: 349051 1 Tablet(s) PO Q6-8H as needed 03/19/2018 04/12/2018 Inactive Flomax 0.4 mg capsule RxNorm: 298614 1 Capsule(s) PO daily 03/10/2018 03/04/2019 Active Urecholine 25 mg tablet RxNorm: 694962 1 Tablet(s) PO BID 03/10/2018 07/07/2018 Inactive ketorolac 60 mg/2 mL intramuscular solution RxNorm: 9115919 Milliliter(s) IM 03/07/2018 03/07/2018 In active metformin 500 mg tablet RxNorm: 079275 Tablet(s) TAKE 1 TABLET BY MOUTH DAILY 02/20/2018 02/13/2019 Ac tive 1 q am and 1/2 tab q pm hydrocodone 5 mg-linh taminophen 325 mg tablet RxNorm: 507585 1 Tablet(s) PO Q6-8H as needed 02/20/2018 03/16/2018 Inactive Kenalog 40 mg/mL bartolome pension for injection RxNorm: 3036628 1.5 Milliliter(s) In j 01/30/2018 01/30/2018 In active hydrocodone 5 mg-linh taminophen 325 mg tablet RxNorm: 606330 1 Tablet(s) PO Q6-8H as needed 01/23/2018 02/16/2018 Inactive Urecholine 25 mg tablet RxNorm: 137511 1 Tablet(s) PO BID 01/22/2018 03/09/2018 Inactive Flomax 0.4 mg capsule RxNorm: 977922 1 Capsule(s) PO daily 01/22/2018 03/09/2018 Inactive Flomax 0.4 mg capsule RxNorm: 917021 1 Capsule(s) PO daily 01/22/2018 01/21/2018 Inactive Urecholine 25 mg tablet RxNorm: 436702 1 Tablet(s) PO BID 01/22/2018 01/21/2018 Inactive testosterone cypiona te 200 mg/mL intramuscular oil RxNorm: 619413 Milliliter(s) IM 01/17/2018 01/17/2018 In active testosterone cypiona te 200 mg/mL intramuscular oil RxNorm: 684401 1 Milliliter(s) IM monthly 01/17/2018 04/03/2018 Inactive doxycycline hyclate 100 mg tablet RxNorm: 944537 1 Tablet(s) PO BID 01/14/2018 01/23/2018 Inactive lisinopril 10 mg tablet RxNorm: 098995 TAKE 1 TABLET BY MOUTH TWO TIMES DAILY 01/14/2018 10/14/2018 In active - First Attempt Ref: [id number] Xanax 0.5 mg tablet RxNorm: 335208 1 Tablet(s) PO TID 01/08/2018 04/06/2018 Inactive nystatin 100,000 uni t/mL oral suspension RxNorm: 463469 4 Milliliter(s) PO QI D Swish and swallow 01/08/2018 01/07/2018 Inactive nystatin 100,000 uni t/mL oral suspension RxNorm: 931993 4 Milliliter(s) PO QI D Swish and swallow 01/08/2018 01/12/2018 Inactive simvastatin 40 mg ta blet RxNorm: 354752 TAKE 1 TABLET BY MOUT H DAILY AT BEDTIME 12/30/2017 12/24/2018 Ac tive - First Attempt Ref: [id number] metformin 500 mg tablet RxNorm: 571474 TAKE 1 TABLET BY MOUTH DAILY 12/30/2017 02/19/2018 Inactive - First Attempt Ref: [id number] hydrocodone 5 mg-linh taminophen 325 mg tablet RxNorm: 153577 1 Tablet(s) PO Q6-8H as needed 12/25/2017 01/18/2018 Inactive Protonix 40 mg table t,delayed release RxNorm: 176593 Tablet(s) TAKE 1 TABL ET BY MOUTH DAILY 11/20/2017 04/03/2018 Inactive - Ref: [id number] Linzess 72 mcg capsule RxNorm: 0584270 1 Capsule(s) PO daily 11/19/2017 No Stop Date Active hydrocodone 5 mg-linh taminophen 325 mg tablet RxNorm: 705113 1 Tablet(s) PO Q6-8H as needed 11/19/2017 12/13/2017 Inactive hydrocodone 5 mg-linh taminophen 325 mg tablet RxNorm: 681193 1 Tablet(s) PO Q6-8H as needed 10/28/2017 11/18/2017 Inactive Xanax 0.5 mg tablet RxNorm: 977851 1 Tablet(s) PO TID 10/25/2017 12/22/2017 Inactive Xanax 0.5 mg tablet RxNorm: 462041 TAKE ONE TABLET BY MOUTH THREE TIMES A D AY 10/24/2017 12/01/2018 In active hydrocodone 5 mg-linh taminophen 325 mg tablet RxNorm: 171560 1 Tablet(s) PO Q6-8H as needed 09/30/2017 10/24/2017 Inactive Protonix 40 mg table t,delayed release RxNorm: 846691 TAKE 1 TABLET BY MOUT H DAILY 09/16/2017 11/19/2017 In active - Ref: [id number] Toujeo SoloStar 300 unit/mL (1.5 mL) subcutaneous insulin pen RxNorm: 9885180 35 Unit(s) SQ QHS 08/30/2017 No Stop Date Active dosage increase hydrocodone 5 mg-linh taminophen 325 mg tablet RxNorm: 939888 1 Tablet(s) PO Q6-8H as needed 08/28/2017 09/29/2017 Inactive hydrocodone 5 mg-linh taminophen 325 mg tablet RxNorm: 909128 1 Tablet(s) PO Q6-8H as needed 07/23/2017 08/24/2017 Inactive lisinopril 10 mg tablet RxNorm: 433416 1 Tablet(s) PO BID Take 1 tablet by mout h daily 07/23/2017 01/13/2018 Inactive hydrocodone 5 mg-linh taminophen 325 mg tablet RxNorm: 334266 1 Tablet(s) PO Q6-8H as needed 06/27/2017 07/22/2017 Inactive Xanax 0.5 mg tablet RxNorm: 782120 1 Tablet(s) PO TID 06/18/2017 10/25/2017 Inactive hydrocodone 5 mg-linh taminophen 325 mg tablet RxNorm: 602924 1 Tablet(s) PO Q6-8H as needed 05/27/2017 06/26/2017 Inactive Levaquin 500 mg tablet RxNorm: 578109 1 Tablet(s) PO daily 05/24/2017 05/23/2017 Inactive Levaquin 500 mg tablet RxNorm: 367077 1 Tablet(s) PO daily 05/24/2017 05/30/2017 Inactive Protonix 40 mg table t,delayed release RxNorm: 980817 Take 1 tablet by mout h daily 04/29/2017 09/15/2017 In active - Ref: [id number] hydrocodone 5 mg-linh taminophen 325 mg tablet RxNorm: 211887 1 Tablet(s) PO Q6-8H as needed 04/25/2017 05/26/2017 Inactive metformin 500 mg tablet RxNorm: 000888 Take 1 tablet by mouth daily 04/08/2017 12/29/2017 Inactive - First Attempt Ref: [id number] hydrocodone 5 mg-linh taminophen 325 mg tablet RxNorm: 668063 1 Tablet(s) PO Q6-8H as needed 03/27/2017 04/24/2017 Inactive hydrocodone 5 mg-linh taminophen 325 mg tablet RxNorm: 757642 1 Tablet(s) PO Q6-8H as needed 02/25/2017 03/26/2017 Inactive Protonix 40 mg table t,delayed release RxNorm: 199291 Tablet(s) Take 1 tabl et by mouth BID 02/25/2017 04/28/2017 Inactive Protonix 40 mg table t,delayed release RxNorm: 214917 Tablet(s) Take 1 tabl et by mouth BID 02/19/2017 02/18/2017 Inactive Protonix 40 mg table t,delayed release RxNorm: 043709 Tablet(s) Take 1 tabl et by mouth BID 02/19/2017 02/24/2017 Inactive lisinopril 10 mg tablet RxNorm: 598265 Take 1 tablet by mouth daily 01/29/2017 07/22/2017 Inactive - First Attempt Ref: [id number] hydrocodone 5 mg-linh taminophen 325 mg tablet RxNorm: 629309 1 Tablet(s) PO Q6-8H as needed 01/25/2017 02/24/2017 Inactive simvastatin 40 mg ta blet RxNorm: 666101 Tablet(s) Take 1 tabl et by mouth daily at bedtime 01/03/2017 12/28/2017 Inactive lisinopril 10 mg tablet RxNorm: 009771 Tablet(s) Take 1 tablet by mouth daily 01/03/2017 01/28/2017 In active Protonix 40 mg table t,delayed release RxNorm: 310684 Tablet(s) Take 1 tabl et by mouth daily 12/28/2016 02/18/2017 Inactive hydrocodone 5 mg-linh taminophen 325 mg tablet RxNorm: 151059 1 Tablet(s) PO Q6-8H as needed 12/26/2016 01/24/2017 Inactive Xanax 0.5 mg tablet RxNorm: 514493 1 Tablet(s) PO TID 12/12/2016 03/11/2017 Inactive simvastatin 40 mg ta blet RxNorm: 192913 Tablet(s) Take 1 tabl et by mouth daily at bedtime 11/30/2016 01/02/2017 Inactive simvastatin 40 mg ta blet RxNorm: 895197 Take 1 tablet by mout h daily at bedtime 11/29/2016 11/29/2016 In active - First Attempt Ref: [id number] Protonix 40 mg table t,delayed release RxNorm: 165298 Take 1 tablet by mout h daily 11/27/2016 12/27/2016 In active - First Attempt Ref: [id number] hydrocodone 5 mg-linh taminophen 325 mg tablet RxNorm: 165609 1 Tablet(s) PO Q6-8H as needed 11/26/2016 12/25/2016 Inactive hydrocodone 5 mg-linh taminophen 325 mg tablet RxNorm: 220206 1 Tablet(s) PO Q8 as needed 10/24/2016 11/25/2016 Inactive Xanax 0.5 mg tablet RxNorm: 244577 1 Tablet(s) PO TID 10/09/2016 12/25/2016 Inactive hydrocodone 5 mg-linh taminophen 325 mg tablet RxNorm: 478676 1 Tablet(s) PO Q8 as needed 09/27/2016 10/23/2016 Inactive lisinopril 10 mg tablet RxNorm: 497413 Take 1 tablet by mouth daily 09/25/2016 01/02/2017 Inactive - First Attempt Ref: [id number] Vitamin D2 50,000 un it capsule RxNorm: 852503 1 Capsule(s) PO QW 09/06/2016 12/01/2018 Inactive hydrocodone 5 mg-linh taminophen 325 mg tablet RxNorm: 341224 1 Tablet(s) PO Q8 as needed 08/28/2016 09/26/2016 Inactive Toujeo SoloStar 300 unit/mL (1.5 mL) subcutaneous insulin pen RxNorm: 4781275 25 Unit(s) SQ QHS 08/23/2016 08/29/2017 Inactive dosage increase hydrocodone 5 mg-linh taminophen 325 mg tablet RxNorm: 438597 1 Tablet(s) PO Q8 as needed 07/26/2016 08/27/2016 Inactive Protonix 40 mg table t,delayed release RxNorm: 858210 Take 1 tablet by mout h daily 07/24/2016 11/26/2016 In active - First Attempt Ref: [id number] hydrocodone 5 mg-linh taminophen 325 mg tablet RxNorm: 662284 1 Tablet(s) PO Q8 as needed 06/19/2016 07/21/2016 Inactive Toujeo SoloStar 300 unit/mL (1.5 mL) subcutaneous insulin pen RxNorm: 4494405 32 Unit(s) SQ QHS 05/30/2016 08/22/2016 Inactive dosage increase hydrocodone 5 mg-linh taminophen 325 mg tablet RxNorm: 806911 1 Tablet(s) PO Q8 as needed 05/22/2016 06/18/2016 Inactive hydrocodone 5 mg-linh taminophen 325 mg tablet RxNorm: 500640 1 Tablet(s) PO Q8 as needed 04/18/2016 05/17/2016 Inactive Protonix 40 mg table t,delayed release RxNorm: 401911 Take 1 tablet by mout h daily 04/05/2016 07/03/2016 In active - Ref: [id number] metformin 500 mg tablet RxNorm: 346569 Take 1 tablet by mouth daily 04/04/2016 07/02/2016 Inactive - Ref: [id number] Xanax 0.5 mg tablet RxNorm: 304630 1 Tablet(s) PO TID 03/30/2016 09/25/2016 Inactive Xanax 0.5 mg tablet RxNorm: 494253 1 Tablet(s) PO TID 03/23/2016 12/25/2016 Inactive hydrocodone 5 mg-linh taminophen 325 mg tablet RxNorm: 716263 1 Tablet(s) PO Q8 as needed 03/06/2016 04/04/2016 Inactive Cipro 500 mg tablet RxNorm: 774762 1 Tablet(s) PO BID 02/24/2016 03/04/2016 Inactive Miralax 17 gram oral powder packet RxNorm: 071890 1 packet PO every oth er day 01/27/2016 No Stop Date Active hydrocodone 5 mg-linh taminophen 325 mg tablet RxNorm: 795395 1 Tablet(s) PO Q8 as needed 01/27/2016 02/25/2016 Inactive lisinopril 10 mg tablet RxNorm: 353557 1 Tablet(s) PO daily 01/12/2016 09/24/2016 Inactive simvastatin 40 mg ta blet RxNorm: 348721 1 Tablet(s) PO QHS 01/12/2016 11/28/2016 Inactive simvastatin 40 mg ta blet RxNorm: 669189 1 Tablet(s) PO QHS 01/11/2016 01/11/2016 Inactive lisinopril 10 mg tablet RxNorm: 056810 1 Tablet(s) PO daily 01/06/2016 01/11/2016 Inactive simvastatin 40 mg ta blet RxNorm: 156521 1 Tablet(s) PO daily 12/28/2015 01/10/2016 Inactive hydrocodone 5 mg-linh taminophen 325 mg tablet RxNorm: 379140 1 Tablet(s) PO Q8 as needed 12/27/2015 01/26/2016 Inactive Xanax 0.5 mg tablet RxNorm: 050003 1 Tablet(s) PO TID 11/30/2015 03/29/2016 Inactive Toujeo SoloStar 300 unit/mL (1.5 mL) subcutaneous insulin pen RxNorm: 1931288 30 Unit(s) SQ QHS 11/25/2015 05/29/2016 Inactive dosage increase meclizine 25 mg tablet RxNorm: 652766 1 Tablet(s) PO Q6 PRN TAKE ONE TABLET BY MOUTH EVERY 6 HOURS NEEDED 11/25/2015 02/22/2016 Inactive omeprazole 20 mg cap jacquelyn,delayed release RxNorm: 532625 1 Capsule(s) PO daily 10/06/2015 01/26/2016 In active Toujeo SoloStar 300 unit/mL (1.5 mL) subcutaneous insulin pen RxNorm: 1003702 35 Unit(s) SQ QHS 08/02/2015 11/24/2015 Inactive dosage increase Vitamin D2 50,000 un it capsule RxNorm: 931523 1 Capsule(s) PO QW 08/02/2015 09/05/2016 Inactive hydrocodone 5 mg-linh taminophen 325 mg tablet RxNorm: 230900 1 Tablet(s) PO Q8 as needed 07/11/2015 12/26/2015 Inactive Xanax 0.5 mg tablet RxNorm: 418682 1 Tablet(s) PO TID 06/30/2015 06/29/2015 Inactive Xanax 0.5 mg tablet RxNorm: 911714 1 Tablet(s) PO TID 06/30/2015 12/25/2015 Inactive hydrocodone 5 mg-linh taminophen 325 mg tablet RxNorm: 751706 1 Tablet(s) PO Q8 as needed 05/06/2015 07/10/2015 Inactive Symbicort 160 mcg-4. 5 mcg/actuation HFA aerosol inhaler RxNorm: 6339351 INH 04/25/2015 No Stop Date Active Levemir FlexTouch 10 0 unit/mL (3 mL) subcutaneous insulin pen RxNorm: 110434 30 Unit(s) SQ QHS 04/25/2015 11/24/2015 Inactive prednisone 20 mg tablet RxNorm: 164431 1 Tablet(s) PO BID 04/25/2015 04/29/2015 Inactive metformin 500 mg tablet RxNorm: 158339 1 Tablet(s) PO daily 04/25/2015 04/03/2016 Inactive amoxicillin 500 mg c apsule RxNorm: 883402 1 Capsule(s) PO TID 04/14/2015 04/13/2015 Inactive amoxicillin 500 mg c apsule RxNorm: 663714 1 Capsule(s) PO TID a nd recommend probiotic tid (otc) 04/14/2015 04/20/2015 Inactive Kenalog 40 mg/mL bartolome pension for injection RxNorm: 9800831 Milliliter(s) Inj 04/12/2015 04/12/2015 In active hydrocodone 5 mg-linh taminophen 325 mg tablet RxNorm: 401639 1 Tablet(s) PO Q8 as needed 03/30/2015 05/05/2015 Inactive Lantus 100 unit/mL s ubcutaneous solution RxNorm: 557446 25 Unit(s) SQ QPM 03/24/2015 04/25/2015 In active meclizine 25 mg tablet RxNorm: 776032 Tablet(s) TAKE ONE TABLET BY MOUTH EVERY 6 HOURS NEEDED 03/08/2015 04/06/2015 Inactive meclizine 25 mg tablet RxNorm: 250983 TAKE ONE TABLET BY MOUTH EVERY 6 HOURS A S NEEDED 02/25/2015 03/03/2015 Inactive Lantus 100 unit/mL s ubcutaneous solution RxNorm: 273371 20 Unit(s) SQ QPM 02/23/2015 03/23/2015 In active Lantus 100 unit/mL s ubcutaneous solution RxNorm: 357024 25 Unit(s) SQ QPM 02/23/2015 02/22/2015 In active hydrocodone 5 mg-linh taminophen 325 mg tablet RxNorm: 840499 1 Tablet(s) PO Q8 as needed 02/17/2015 03/29/2015 Inactive Xanax 0.5 mg tablet RxNorm: 578336 1 Tablet(s) PO TID 02/03/2015 06/29/2015 Inactive Lantus 100 unit/mL s ubcutaneous solution RxNorm: 292610 20 Unit(s) SQ QPM 12/29/2014 02/22/2015 In active Phenergan 12.5 mg re ctal suppository RxNorm: 048785 1 Suppository RTL Q6 PRN 12/23/2014 No Stop Date Active nausea Kenalog 40 mg/mL bartolome pension for injection RxNorm: 8082148 Milliliter(s) Inj 12/23/2014 12/23/2014 In active prednisone 20 mg tablet RxNorm: 555065 2 Tablet(s) PO daily 12/13/2014 12/17/2014 Inactive prednisone 20 mg tablet RxNorm: 974557 2 Tablet(s) PO daily 12/13/2014 12/12/2014 Inactive meclizine 25 mg tablet RxNorm: 332717 1 Tablet(s) PO Q6 PRN 12/09/2014 02/24/2015 Inactive hydrocodone 5 mg-linh taminophen 325 mg tablet RxNorm: 242780 1 Tablet(s) PO Q8 as needed 12/09/2014 02/16/2015 Inactive Vitamin B-12 1,000 m cg/mL oral drops RxNorm: 9843246 1 Milliliter(s) PO d aily No Start Date Active Alphagan P 0.1 % eye drops RxNorm: 130832 1 Drop(s) OPH BID No Start Date Active aspirin 325 mg table t,delayed release RxNorm: 449679 1 Tablet(s) PO daily No Start Date Active Tricor 145 mg tablet RxNorm: 953359 1 Tablet(s) PO daily No Start Date Active vitamin [id number] B1 oral liquid RxNorm: 1,000 Microgram(s) PO daily No Start Date Active atenolol 50 mg tablet RxNorm: 009547 1 Tablet(s) PO daily No Start Date Active Protonix 40 mg table t,delayed release RxNorm: 000363 1 Tablet(s) PO daily No Start Date 04/04/2016 Inactive glipizide 10 mg tablet RxNorm: 113187 1 Tablet(s) PO BID No Start Date 03/22/2015 Inactive Lantus 100 unit/mL s ubcutaneous solution RxNorm: 954944 15 Unit(s) SQ QPM No Start Date 12/28/2014 Inactive lisinopril 10 mg tablet RxNorm: 585589 1 Tablet(s) PO daily No Start Date 01/05/2016 Inactive Vitamin D2 50,000 un it capsule RxNorm: 145449 1 Capsule(s) PO QW No Start Date 08/01/2015 Inactive Toujeo SoloStar 300 unit/mL (1.5 mL) subcutaneous insulin pen RxNorm: 3843123 30 Unit(s) SQ QHS No Start Date 08/01/2015 Inactive simvastatin 40 mg ta blet RxNorm: 468492 1 Tablet(s) PO daily No Start Date 12/27/2015 Inactive testosterone cypiona te 200 mg/mL intramuscular oil RxNorm: 309745 1 Milliliter(s) IM monthly No Start Date 01/16/2018 Inactive hydrocodone 5 mg-linh taminophen 325 mg tablet RxNorm: 419380 1 Tablet(s) PO Q8 as needed No Start Date 12/08/2014 Inactive metformin 500 mg tablet RxNorm: 311591 1 Tablet(s) PO daily No Start Date 04/24/2015 Inactive omeprazole 20 mg cap jacquelyn,delayed release RxNorm: 357397 1 Capsule(s) PO daily No Start Date 10/05/2015 Inactive Flomax 0.4 mg capsule RxNorm: 557093 1 Capsule(s) PO daily No Start Date 03/23/2015 Inactive Medication Administered Medication Codes Instruc tions Start Date Status testosterone cypionate 200 mg/mL intramuscular oil RxNorm: 8665877 Milliliter 12/17/2018 No longer Active testosterone cypionate 200 mg/mL intramuscular oil RxNorm: 3437859 Milliliter 12/02/2018 No longer Active testosterone cypionate 200 mg/mL intramuscular oil RxNorm: 4833564 Milliliter 11/18/2018 No longer Active testosterone cypionate 200 mg/mL intramuscular oil RxNorm: 1742391 Milliliter 11/04/2018 No longer Active testosterone cypionate 200 mg/mL intramuscular oil RxNorm: 0316121 Milliliter 10/14/2018 No longer Active testosterone cypionate 200 mg/mL intramuscular oil RxNorm: 1045398 Milliliter 10/03/2018 No longer Active testosterone cypionate 200 mg/mL intramuscular oil RxNorm: 1077118 Milliliter 09/23/2018 No longer Active testosterone cypionate 200 mg/mL intramuscular oil RxNorm: 3935916 /2Milliliter 09/02/2018 No longer Active testosterone enanthate 200 mg/mL intramuscular oil RxNorm: 450083 Milliliter 08/21/2018 No longer Active testosterone cypionate 200 mg/mL intramuscular oil RxNorm: 3107614 Milliliter 08/08/2018 No longer Active testosterone cypionate 200 mg/mL intramuscular oil RxNorm: 9175321 2Milliliter 07/28/2018 No longer Active testosterone cypionate 200 mg/mL intramuscular oil RxNorm: 109465 Milliliter 07/16/2018 No longer Active testosterone cypionate 200 mg/mL intramuscular oil RxNorm: 818419 Milliliter 07/02/2018 No longer Active testosterone cypionate 200 mg/mL intramuscular oil RxNorm: 879502 Milliliter 06/24/2018 No longer Active testosterone cypionate 200 mg/mL intramuscular oil RxNorm: 280423 Milliliter 06/13/2018 No longer Active testosterone cypionate 200 mg/mL intramuscular oil RxNorm: 009688 Milliliter 06/05/2018 No longer Active testosterone cypionate 200 mg/mL intramuscular oil RxNorm: 735159 Milliliter 05/30/2018 No longer Active testosterone cypionate 200 mg/mL intramuscular oil RxNorm: 079316 Milliliter 05/22/2018 No longer Active testosterone cypionate 200 mg/mL intramuscular oil RxNorm: 932186 /2Milliliter 05/12/2018 No longer Active testosterone cypionate 200 mg/mL intramuscular oil RxNorm: 850511 Milliliter 05/02/2018 No longer Active testosterone cypionate 200 mg/mL intramuscular oil RxNorm: 881102 0.5Milliliter 04/24/2018 No longer Active testosterone cypionate 200 mg/mL intramuscular oil RxNorm: 238111 /2Milliliter 04/17/2018 No longer Active ketorolac 60 mg/2 mL intramuscular solution RxNorm: 6107324 Milliliter 03/07/2018 No longer Active Kenalog 40 mg/mL suspension for injection RxNorm: 1737456 1.5Milliliter 01/30/2018 No longer Active testosterone cypionate 200 mg/mL intramuscular oil RxNorm: 589435 Milliliter 01/17/2018 No longer Active Kenalog 40 mg/mL suspension for injection RxNorm: 0820457 Milliliter 04/12/2015 No longer Active Kenalog 40 mg/mL suspension for injection RxNorm: 1175779 Milliliter 12/23/2014 No longer Active Immunizations Vaccine Codes Date Status Influenza CVX: 141 06/06 completed Influenza CVX: 141 04/25 completed Pneumococcal (Adult) CVX: 133 04/25/2017 completed Influenza CVX: 141 05/22 completed Assessments Condition Codes Effectiv e Dates Testicular dysfunction, unspecified ICD-10: E29.9 ICD-9: 257.9 12/17/2018 Chronic obstructive pulmonary disease, unspecified ICD-10: J44.9 [...] 33.4 pg 12/02/2018 Cbc With Differential Ord2 [place]% 8.0 % 12/02/2018 Cbc With Differential Ord2 [...] 2.13 K/ul 12/02/2018 Cbc With Differential Ord2 [place] ABS# 0.6 K/ul 12/02/2018 Cbc With Differential Ord2 Eos ABS# 0.4 K/ul 12/02/2018 Cbc With Differential Ord2 Baso ABS# 0.0 K/ul 12/02/2018 Testosterone Szn227 Testo 213.5 ng/dL 12/02/2018 A1C Frequency Sfd973 A1CF 57636-6 Last A1C performed at [facility] [place] on: 201812/02/2018 Testosterone Moc875 Testo 669.0 ng/dL 09/08/2018 %Hba1C Whe938 % HbA1c 68097-0 7.4 % 09/08/2018 %Hba1C Vmd183 Gluc Ave 166 mg/dL 09/08/2018 Lipid Ord30 CHOL 114 mg/dL 09/08/2018 Lipid Ord30 HDL 28.0 mg/dl 09/08/2018 Lipid Ord30 TRIG 154 mg/dL 09/08/2018 Lipid Ord30 LDL 55 mg/dL 09/08/2018 Lipid Ord30 C/HDL 4.1 Ratio 09/08/2018 Comp Metabolic Yvw424 NA 137 mEq/L 09/08/2018 Comp Metabolic Jxd926 K 4.3 mEq/L 09/08/2018 Comp Metabolic Wgi209 CL 100 mEq/L 09/08/2018 Comp Metabolic Zxt598 CO2 27.0 mEq/L 09/08/2018 Comp Metabolic Uvf385 AN ION GAP 14 09/08/2018 Comp Metabolic Gsk345 GL UCOSE 85 mg/dL 09/08/2018 Comp Metabolic Aid115 Cr eat 1.1 mg/dL 09/08/2018 Comp Metabolic Dee631 eG FR 70 ml/min/1.73m2 09/08 Comp Metabolic Lrh369 BUN 11 mg/dL 09/08/2018 Comp Metabolic Zff840 B/ C Ratio 10.3 Ratio 09/08/2018 Comp Metabolic Dfq946 CA LCIUM 9.2 mg/dL 09/08/2018 Comp Metabolic Kox931 AL K PHOS 65 U/L 09/08/2018 Comp Metabolic Abs033 T(SGOT) 16 U/L 09/08/2018 Comp Metabolic Jwg684 AL T(SGPT) 14 U/L 09/08/2018 Comp Metabolic Czv465 BI LI T 0.6 mg/dL 09/08/2018 Comp Metabolic Pgu338 AL BUMIN 4.0 g/dL 09/08/2018 Comp Metabolic Jpv625 TP RO 6.6 g/dL 09/08/2018 Comp Metabolic Sug104 GL OB 2.6 g/dL 09/08/2018 Comp Metabolic Qkz756 A/ G Ratio 1.6 Ratio 09/08/2018 Comp Metabolic Uqn873 Os mo 272 mOsmo 09/08/2018 Vitamin D 25 Oh Yaz4326 VITAMIN D, 25 HYDROXY 37.17 ng/mL 09/08/2018 [...] 33.3 pg 09/08/2018 Cbc With Differential Ord2 [place]% 8.1 % 09/08/2018 Cbc With Differential Ord2 [...] 2.44 K/ul 09/08/2018 Cbc With Differential Ord2 [place] ABS# 0.6 K/ul 09/08/2018 Cbc With Differential Ord2 Eos ABS# 0.3 K/ul 09/08/2018 Cbc With Differential Ord2 Baso ABS# 0.0 K/ul 09/08/2018 Tsh Ord6 TSH (3rd IS) 2.72 uIU/mL 09/08/2018 Comp Metabolic Mfo973 NA 139 mEq/L 04/01/2018 Comp Metabolic Cfs944 K 4.2 mEq/L 04/01/2018 Comp Metabolic Krd270 CL 102 mEq/L 04/01/2018 Comp Metabolic Rcd085 CO2 29.0 mEq/L 04/01/2018 Comp Metabolic Odo233 AN ION GAP 12 04/01/2018 Comp Metabolic Yev103 GL UCOSE 87 mg/dL 04/01/2018 Comp Metabolic Eec022 Cr eat 1.1 mg/dL 04/01/2018 Comp Metabolic Lvw447 eG FR 70 ml/min/1.73m2 04/01 Comp Metabolic Byd239 BUN 21 mg/dL 04/01/2018 Comp Metabolic Dyh293 B/ C Ratio 19.4 Ratio 04/01/2018 Comp Metabolic Hdm528 CA LCIUM 9.1 mg/dL 04/01/2018 Comp Metabolic Lza513 AL K PHOS 60 U/L 04/01/2018 Comp Metabolic Xum085 T(SGOT) 15 U/L 04/01/2018 Comp Metabolic Bkv274 AL T(SGPT) 18 U/L 04/01/2018 Comp Metabolic Hdv502 BI LI T 0.4 mg/dL 04/01/2018 Comp Metabolic Pcy721 AL BUMIN 4.0 g/dL 04/01/2018 Comp Metabolic Imi117 TP RO 6.5 g/dL 04/01/2018 Comp Metabolic Wrp697 GL OB 2.5 g/dL 04/01/2018 Comp Metabolic Buw915 A/ G Ratio 1.6 Ratio 04/01/2018 Comp Metabolic Sgj449 Os mo 280 mOsmo 04/01/2018 Lipid Ord30 [...] 34.3 pg 04/01/2018 Cbc With Differential Ord2 [place]% 6.0 % 04/01/2018 Cbc With Differential Ord2 [...] 3.25 K/ul 04/01/2018 Cbc With Differential Ord2 [place] ABS# 0.6 K/ul 04/01/2018 Cbc With Differential Ord2 Eos ABS# 0.4 K/ul 04/01/2018 Cbc With Differential Ord2 Baso ABS# 0.0 K/ul 04/01/2018 %Hba1C Bfy751 % HbA1c 97711-8 8.0 % 04/01/2018 %Hba1C Aqu220 Gluc Ave 183 mg/dL 04/01/2018 Testosterone Lhz408 Testo 111.3 ng/dL 04/01/2018 Testosterone Jek685 Testo 135.4 ng/dL 01/14/2018 Cbc With Differential [...] 36.0 pg 01/14/2018 Cbc With Differential Ord2 [place]% 6.8 % 01/14/2018 Cbc With Differential Ord2 [...] 2.71 K/ul 01/14/2018 Cbc With Differential Ord2 [place] ABS# 0.8 K/ul 01/14/2018 Cbc With Differential Ord2 Eos ABS# 0.2 K/ul 01/14/2018 Cbc With Differential Ord2 Baso ABS# 0.0 K/ul 01/14/2018 Comp Metabolic Spy584 NA 134 mEq/L 11/20/2017 Comp Metabolic Uck046 K 4.4 mEq/L 11/20/2017 Comp Metabolic Xyx756 CL 99 mEq/L 11/20/2017 Comp Metabolic Rgu848 CO2 29.0 mEq/L 11/20/2017 Comp Metabolic Zpv364 AN ION GAP 10 11/20/2017 Comp Metabolic Wjh864 GL UCOSE 218 mg/dL 11/20/2017 Comp Metabolic Hui050 Cr eat 1.0 mg/dL 11/20/2017 Comp Metabolic Pyx344 eG FR 78 ml/min/1.73m2 11/20 Comp Metabolic Maj011 BUN 13 mg/dL 11/20/2017 Comp Metabolic Bxg668 B/ C Ratio 13.3 Ratio 11/20/2017 Comp Metabolic Ivd367 CA LCIUM 9.0 mg/dL 11/20/2017 Comp Metabolic Ccs512 AL K PHOS 71 U/L 11/20/2017 Comp Metabolic Ssm897 T(SGOT) 18 U/L 11/20/2017 Comp Metabolic Bbm746 AL T(SGPT) 17 U/L 11/20/2017 Comp Metabolic Uby918 BI LI T 0.4 mg/dL 11/20/2017 Comp Metabolic Jfx882 AL BUMIN 4.1 g/dL 11/20/2017 Comp Metabolic Asy222 TP RO 6.5 g/dL 11/20/2017 Comp Metabolic Xao867 GL OB 2.4 g/dL 11/20/2017 Comp Metabolic Osi902 A/ G Ratio 1.8 Ratio 11/20/2017 Comp Metabolic Ixi256 Os mo 275 mOsmo 11/20/2017 Cbc With [...] 35.2 pg 11/20/2017 Cbc With Differential Ord2 [place]% 7.2 % 11/20/2017 Cbc With Differential Ord2 [...] 3.34 K/ul 11/20/2017 Cbc With Differential Ord2 [place] ABS# 0.6 K/ul 11/20/2017 Cbc With Differential Ord2 Eos ABS# 0.3 K/ul 11/20/2017 Cbc With Differential Ord2 Baso ABS# 0.0 K/ul 11/20/2017 Vitamin D 25 Oh Azp2576 VITAMIN D, 25 HYDROXY 43.72 ng/mL 11/20/2017 %Hba1C Fgw694 % HbA1c 96762-4 7.4 % 11/20/2017 %Hba1C Zvj365 Gluc Ave 166 mg/dL 11/20/2017 %Hba1C Aub858 % HbA1c 03121-4 7.2 % 08/20/2017 %Hba1C Asf025 Gluc Ave 160 mg/dL 08/20/2017 Lipid Ord30 [...] 34.7 pg 08/20/2017 Cbc With Differential Ord2 [place]% 7.6 % 08/20/2017 Cbc With Differential Ord2 [...] 2.42 K/ul 08/20/2017 Cbc With Differential Ord2 [place] ABS# 0.6 K/ul 08/20/2017 Cbc With Differential Ord2 Eos ABS# 0.3 K/ul 08/20/2017 Cbc With Differential Ord2 Baso ABS# 0.0 K/ul 08/20/2017 Tsh Ord6 hTSH II 2.27 uIU/mL 08/20/2017 Comp Metabolic Thr118 NA 138 mEq/L 08/20/2017 Comp Metabolic Qmb372 K 4.3 mEq/L 08/20/2017 Comp Metabolic Ivq511 CL 102 mEq/L 08/20/2017 Comp Metabolic Szl651 CO2 29.0 mEq/L 08/20/2017 Comp Metabolic Bhs649 AN ION GAP 11 08/20/2017 Comp Metabolic Gif172 GL UCOSE 89 mg/dL 08/20/2017 Comp Metabolic Jys660 Cr eat 1.0 mg/dL 08/20/2017 Comp Metabolic Mlb206 eG FR 80 ml/min/1.73m2 08/20 Comp Metabolic Uts691 BUN 13 mg/dL 08/20/2017 Comp Metabolic Dyb987 B/ C Ratio 13.5 Ratio 08/20/2017 Comp Metabolic Olz294 CA LCIUM 9.2 mg/dL 08/20/2017 Comp Metabolic Luc625 AL K PHOS 69 U/L 08/20/2017 Comp Metabolic Zqo125 T(SGOT) 18 U/L 08/20/2017 Comp Metabolic Zxc803 AL T(SGPT) 19 U/L 08/20/2017 Comp Metabolic Tkn792 BI LI T 0.6 mg/dL 08/20/2017 Comp Metabolic Elj128 AL BUMIN 4.0 g/dL 08/20/2017 Comp Metabolic Lmf181 TP RO 6.6 g/dL 08/20/2017 Comp Metabolic Hsc647 GL OB 2.6 g/dL 08/20/2017 Comp Metabolic Ema910 A/ G Ratio 1.5 Ratio 08/20/2017 Comp Metabolic Bsk776 Os mo 275 mOsmo 08/20/2017 Vitamin D 25 Oh Xxh5851 VITAMIN D, 25 HYDROXY 30.96 ng/mL 08/20/2017 B12 Jpz251 B12 >1500.00 pg/ml 02/22/2017 Cbc With Differential [...] 35.7 pg 02/20/2017 Cbc With Differential Ord2 [place]% 6.3 % 02/20/2017 Cbc With Differential Ord2 [...] 3.19 K/ul 02/20/2017 Cbc With Differential Ord2 [place] ABS# 0.5 K/ul 02/20/2017 Cbc With Differential Ord2 Eos ABS# 0.4 K/ul 02/20/2017 Cbc With Differential Ord2 Baso ABS# 0.0 K/ul 02/20/2017 Comp Metabolic Jxy832 NA 138 mEq/L 02/20/2017 Comp Metabolic Xbw859 K 4.5 mEq/L 02/20/2017 Comp Metabolic Zzz792 CL 101 mEq/L 02/20/2017 Comp Metabolic Fkt082 CO2 31.0 mEq/L 02/20/2017 Comp Metabolic Qcq279 AN ION GAP 11 02/20/2017 Comp Metabolic Tcg150 GL UCOSE 120 mg/dL 02/20/2017 Comp Metabolic Txl535 Cr eat 0.9 mg/dL 02/20/2017 Comp Metabolic Ird713 eG FR 83 ml/min/1.73m2 02/20 Comp Metabolic Lvg364 BUN 15 mg/dL 02/20/2017 Comp Metabolic Tso218 B/ C Ratio 16.1 Ratio 02/20/2017 Comp Metabolic Yws754 CA LCIUM 9.1 mg/dL 02/20/2017 Comp Metabolic Zoi970 AL K PHOS 67 U/L 02/20/2017 Comp Metabolic Fyi393 T(SGOT) 15 U/L 02/20/2017 Comp Metabolic Mch665 AL T(SGPT) 16 U/L 02/20/2017 Comp Metabolic Hjj049 BI LI T 0.5 mg/dL 02/20/2017 Comp Metabolic Pgs027 AL BUMIN 4.0 g/dL 02/20/2017 Comp Metabolic Fam051 TP RO 6.4 g/dL 02/20/2017 Comp Metabolic Cgv589 GL OB 2.4 g/dL 02/20/2017 Comp Metabolic Xdm125 A/ G Ratio 1.7 Ratio 02/20/2017 Comp Metabolic Fry538 Os mo 278 mOsmo 02/20/2017 Tsh Ord6 hTSH II 2.05 uIU/mL 02/20/2017 %Hba1C Nok802 % HbA1c 24902-8 7.6 % 02/20/2017 %Hba1C Fww009 Gluc Ave 171 mg/dL 02/20/2017 Vitamin D 25 Oh Soq8280 VITAMIN D, 25 HYDROXY 44.40 ng/mL 12/21/2016 Comp Metabolic Tvo958 NA 131 mEq/L 12/21/2016 Comp Metabolic Eev964 K 4.2 mEq/L 12/21/2016 Comp Metabolic Cet651 CL 97 mEq/L 12/21/2016 Comp Metabolic Oqd648 CO2 27.0 mEq/L 12/21/2016 Comp Metabolic Thy100 AN ION GAP 11 12/21/2016 Comp Metabolic Iwz441 GL UCOSE 266 mg/dL 12/21/2016 Comp Metabolic Cny638 Cr eat 0.9 mg/dL 12/21/2016 Comp Metabolic Urh120 eG FR 88 ml/min/1.73m2 12/21 Comp Metabolic Osy173 BUN 12 mg/dL 12/21/2016 Comp Metabolic Zoo673 B/ C Ratio 13.6 Ratio 12/21/2016 Comp Metabolic Ysh083 CA LCIUM 8.6 mg/dL 12/21/2016 Comp Metabolic Swk044 AL K PHOS 69 U/L 12/21/2016 Comp Metabolic Dge429 T(SGOT) 15 U/L 12/21/2016 Comp Metabolic Rhs275 AL T(SGPT) 14 U/L 12/21/2016 Comp Metabolic Fyf286 BI LI T 0.3 mg/dL 12/21/2016 Comp Metabolic Cez605 AL BUMIN 3.7 g/dL 12/21/2016 Comp Metabolic Gpd762 TP RO 5.9 g/dL 12/21/2016 Comp Metabolic Jxj568 GL OB 2.2 g/dL 12/21/2016 Comp Metabolic Mfd395 A/ G Ratio 1.7 Ratio 12/21/2016 Comp Metabolic Noh550 Os mo 272 mOsmo 12/21/2016 Cbc With [...] 34.6 pg 12/21/2016 Cbc With Differential Ord2 [place]% 6.9 % 12/21/2016 Cbc With Differential Ord2 [...] 2.05 K/ul 12/21/2016 Cbc With Differential Ord2 [place] ABS# 0.4 K/ul 12/21/2016 Cbc With Differential Ord2 Eos ABS# 0.2 K/ul 12/21/2016 Cbc With Differential Ord2 Baso ABS# 0.0 K/ul 12/21/2016 Comp Metabolic Nqb855 NA 138 mEq/L 09/03/2016 Comp Metabolic Mve819 K 4.5 mEq/L 09/03/2016 Comp Metabolic Mkz241 CL 102 mEq/L 09/03/2016 Comp Metabolic Ikh977 CO2 30.0 mEq/L 09/03/2016 Comp Metabolic Neb400 AN ION GAP 11 09/03/2016 Comp Metabolic Bhf626 GL UCOSE 113 mg/dL 09/03/2016 Comp Metabolic Faj118 Cr eat 1.0 mg/dL 09/03/2016 Comp Metabolic Vnu954 eG FR 81 ml/min/1.73m2 09/03 Comp Metabolic Aes071 BUN 10 mg/dL 09/03/2016 Comp Metabolic Xeu510 B/ C Ratio 10.5 Ratio 09/03/2016 Comp Metabolic Mfs788 CA LCIUM 9.1 mg/dL 09/03/2016 Comp Metabolic Qug631 AL K PHOS 71 U/L 09/03/2016 Comp Metabolic Qxs145 T(SGOT) 18 U/L 09/03/2016 Comp Metabolic Ozy247 AL T(SGPT) 17 U/L 09/03/2016 Comp Metabolic Eso945 BI LI T 0.6 mg/dL 09/03/2016 Comp Metabolic Ohk071 AL BUMIN 4.1 g/dL 09/03/2016 Comp Metabolic Amf671 TP RO 6.4 g/dL 09/03/2016 Comp Metabolic Orc126 GL OB 2.3 g/dL 09/03/2016 Comp Metabolic Ooz619 A/ G Ratio 1.8 Ratio 09/03/2016 Comp Metabolic Lan348 Os mo 276 mOsmo 09/03/2016 Vitamin D 25 Oh Udm8304 VITAMIN D, 25 HYDROXY 28.23 ng/mL 09/03/2016 [...] 34.4 pg 09/03/2016 Cbc With Differential Ord2 [place]% 8.9 % 09/03/2016 Cbc With Differential Ord2 [...] 3.34 K/ul 09/03/2016 Cbc With Differential Ord2 [place] ABS# 0.7 K/ul 09/03/2016 Cbc With Differential Ord2 Eos ABS# 0.4 K/ul 09/03/2016 Cbc With Differential Ord2 Baso ABS# 0.0 K/ul 09/03/2016 Lipid Ord30 CHOL 120 mg/dL 09/03/2016 Lipid Ord30 HDL 33.0 mg/dl 09/03/2016 Lipid Ord30 TRIG 161 mg/dL 09/03/2016 Lipid Ord30 LDL 55 mg/dL 09/03/2016 Lipid Ord30 C/HDL 3.6 Ratio 09/03/2016 %Hba1C Ykt295 % HbA1c 83851-1 7.5 % 09/03/2016 %Hba1C Mro011 Gluc Ave 169 mg/dL 09/03/2016 Tsh Ord6 hTSH II 1.50 uIU/mL 05/23/2016 %Hba1C Rvr730 % HbA1c 61018-4 7.6 % 05/23/2016 %Hba1C Prb636 Gluc Ave 171 mg/dL 05/23/2016 Comp Metabolic Ezu055 NA 135 mEq/L 05/23/2016 Comp Metabolic Ekz623 K 4.4 mEq/L 05/23/2016 Comp Metabolic Jzb994 CL 99 mEq/L 05/23/2016 Comp Metabolic Afp951 CO2 28.0 mEq/L 05/23/2016 Comp Metabolic Tyg395 AN ION GAP 12 05/23/2016 Comp Metabolic Ffo296 GL UCOSE 257 mg/dL 05/23/2016 Comp Metabolic Xsq116 Cr eat 0.8 mg/dL 05/23/2016 Comp Metabolic Yco979 eG FR 95 ml/min/1.73m2 05/23 Comp Metabolic Xuk155 BUN 11 mg/dL 05/23/2016 Comp Metabolic Ahh556 B/ C Ratio 13.3 Ratio 05/23/2016 Comp Metabolic Grs821 CA LCIUM 9.0 mg/dL 05/23/2016 Comp Metabolic Qoc280 AL K PHOS 82 U/L 05/23/2016 Comp Metabolic Xne549 T(SGOT) 21 U/L 05/23/2016 Comp Metabolic Flh836 AL T(SGPT) 20 U/L 05/23/2016 Comp Metabolic Ucu548 BI LI T 0.3 mg/dL 05/23/2016 Comp Metabolic Onu808 AL BUMIN 4.0 g/dL 05/23/2016 Comp Metabolic Gwf125 TP RO 6.4 g/dL 05/23/2016 Comp Metabolic Ybd710 GL OB 2.4 g/dL 05/23/2016 Comp Metabolic Hcj208 A/ G Ratio 1.6 Ratio 05/23/2016 Comp Metabolic Htf626 Os mo 278 mOsmo 05/23/2016 Cbc With [...] 34.5 pg 05/23/2016 Cbc With Differential Ord2 [place]% 6.1 % 05/23/2016 Cbc With Differential Ord2 [...] 2.38 K/ul 05/23/2016 Cbc With Differential Ord2 [place] ABS# 0.4 K/ul 05/23/2016 Cbc With Differential Ord2 Eos ABS# 0.2 K/ul 05/23/2016 Cbc With Differential Ord2 Baso ABS# 0.0 K/ul 05/23/2016 B12 Jgu392 B12 597.00 pg/ml 05/23/2016 Metabolic Ord15 NA [...] 0.92 uIU/mL 07/29/2015 Vitamin D 25 Oh Idq6392 VITAMIN D, 25 HYDROXY 26.93 ng/mL 07/29/2015 %Hba1C Sjl800 % HbA1c 34919-7 8.8 % 07/29/2015 %Hba1C Pdt334 Gluc Ave 206 mg/dL 07/29/2015 Cbc With [...] Ord2 RDW 14.9 % 07/29/2015 Comp Metabolic Oxo104 NA 138 mEq/L 07/29/2015 Comp Metabolic Hsp447 K 4.4 mEq/L 07/29/2015 Comp Metabolic Jln539 CL 102 mEq/L 07/29/2015 Comp Metabolic Unj581 CO2 28.0 mEq/L 07/29/2015 Comp Metabolic Ohc867 AN ION GAP 12 07/29/2015 Comp Metabolic Xeu606 GL UCOSE 261 mg/dL 07/29/2015 Comp Metabolic Rfj830 Cr eat 1.0 mg/dL 07/29/2015 Comp Metabolic Lde367 eG FR 77 ml/min/1.73m2 07/29 Comp Metabolic Qai123 BUN 13 mg/dL 07/29/2015 Comp Metabolic Haw417 B/ C Ratio 13.0 Ratio 07/29/2015 Comp Metabolic Ugq084 CA LCIUM 9.1 mg/dL 07/29/2015 Comp Metabolic Wan408 AL K PHOS 64 U/L 07/29/2015 Comp Metabolic Era570 T(SGOT) 20 U/L 07/29/2015 Comp Metabolic Myd470 AL T(SGPT) 22 U/L 07/29/2015 Comp Metabolic Pju199 BI LI T 0.4 mg/dL 07/29/2015 Comp Metabolic Ddf803 AL BUMIN 4.0 g/dL 07/29/2015 Comp Metabolic Iay210 TP RO 6.1 g/dL 07/29/2015 Comp Metabolic Cuq506 GL OB 2.1 g/dL 07/29/2015 Comp Metabolic Pma637 A/ G Ratio 1.9 Ratio 07/29/2015 Comp Metabolic Cfi058 Os mo 285 mOsmo 07/29/2015 Cbc With [...] Ord2 RDW 13.1 % 05/06/2015 Comp Metabolic Gjv904 NA 134 mEq/L 05/06/2015 Comp Metabolic Ncq780 K 4.4 mEq/L 05/06/2015 Comp Metabolic Ocv191 CL 98 mEq/L 05/06/2015 Comp Metabolic Djd655 CO2 29.0 mEq/L 05/06/2015 Comp Metabolic Dym290 AN ION GAP 11 05/06/2015 Comp Metabolic Coj824 GL UCOSE 321 mg/dL 05/06/2015 Comp Metabolic Trx395 Cr eat 1.0 mg/dL 05/06/2015 Comp Metabolic Ics631 eG FR 78 ml/min/1.73m2 05/06 Comp Metabolic Ufz084 BUN 20 mg/dL 05/06/2015 Comp Metabolic Idx489 B/ C Ratio 20.4 Ratio 05/06/2015 Comp Metabolic Deg230 CA LCIUM 9.5 mg/dL 05/06/2015 Comp Metabolic Mig557 AL K PHOS 62 U/L 05/06/2015 Comp Metabolic Fkr972 T(SGOT) 21 U/L 05/06/2015 Comp Metabolic Iti757 AL T(SGPT) 37 U/L 05/06/2015 Comp Metabolic Pzz741 BI LI T 0.4 mg/dL 05/06/2015 Comp Metabolic Gbt723 AL BUMIN 3.8 g/dL 05/06/2015 Comp Metabolic Djl319 TP RO 6.1 g/dL 05/06/2015 Comp Metabolic Rek817 GL OB 2.3 g/dL 05/06/2015 Comp Metabolic Ewx516 A/ G Ratio 1.7 Ratio 05/06/2015 Comp Metabolic Irx969 Os mo 283 mOsmo 05/06/2015 Tsh Ord6 hTSH II 1.65 uIU/mL 02/18/2015 B12 Uwt159 B12 605.00 pg/ml 02/18/2015 %Hba1C Eej902 % HbA1c 04047-7 8.3 % 02/18/2015 %Hba1C Umn076 Gluc Ave 192 mg/dL 02/18/2015 Cbc With [...] Ord2 RDW 13.9 % 02/17/2015 Comp Metabolic Sbd264 NA 137 mEq/L 02/17/2015 Comp Metabolic Yle780 K 4.4 mEq/L 02/17/2015 Comp Metabolic Oqp145 CL 100 mEq/L 02/17/2015 Comp Metabolic Nbt025 CO2 31.0 mEq/L 02/17/2015 Comp Metabolic Yxk963 AN ION GAP 10 02/17/2015 Comp Metabolic Mfn762 GL UCOSE 307 mg/dL 02/17/2015 Comp Metabolic Rmk413 Cr eat 1.0 mg/dL 02/17/2015 Comp Metabolic Xkv595 eG FR 74 ml/min/1.73m2 02/17 Comp Metabolic Xwc278 BUN 22 mg/dL 02/17/2015 Comp Metabolic Vyb596 B/ C Ratio 21.4 Ratio 02/17/2015 Comp Metabolic Aml773 CA LCIUM 9.5 mg/dL 02/17/2015 Comp Metabolic Rkl366 AL K PHOS 78 U/L 02/17/2015 Comp Metabolic Xrk780 T(SGOT) 18 U/L 02/17/2015 Comp Metabolic Hfo745 AL T(SGPT) 32 U/L 02/17/2015 Comp Metabolic Jim986 BI LI T 0.5 mg/dL 02/17/2015 Comp Metabolic Wnn463 AL BUMIN 4.3 g/dL 02/17/2015 Comp Metabolic Vtg638 TP RO 6.7 g/dL 02/17/2015 Comp Metabolic Lzw431 GL OB 2.4 g/dL 02/17/2015 Comp Metabolic Mty254 A/ G Ratio 1.8 Ratio 02/17/2015 Comp Metabolic Qit815 Os mo 289 mOsmo 02/17/2015 Review of [...] dizziness Neurologic gait abnormality 03/07/2015 Psychiatric anxiety 2 02/2015 Psychiatric No depression 03/07/2015 Endocrine diabetes mellitus [...] inspection of skin Location: face 03/07/2015 on shinto, cheeks,actinic keratosis with irritation on left cheek - left shinto - croptherapy on these two lesions - [...] Procedure Codes Date THER/PROPH/DIAG INJ SC/IM CPT-4: 06705 12/17/2018 THER/PROPH/DIAG INJ SC/IM CPT-4: 48450 12/02/2018 THER/PROPH/DIAG INJ SC/IM CPT-4: 86326 11/18/2018 THER/PROPH/DIAG INJ SC/IM CPT-4: 93637 11/04/2018 THER/PROPH/DIAG INJ SC/IM CPT-4: 55576 10/14/2018 THER/PROPH/DIAG INJ SC/IM CPT-4: 57909 10/03/2018 THER/PROPH/DIAG INJ SC/IM CPT-4: 53647 09/23/2018 THER/PROPH/DIAG INJ SC/IM CPT-4: 86397 09/02/2018 THER/PROPH/DIAG INJ SC/IM CPT-4: 57249 08/21/2018 THER/PROPH/DIAG INJ SC/IM CPT-4: 29666 08/08/2018 THER/PROPH/DIAG INJ SC/IM CPT-4: 62931 07/28/2018 THER/PROPH/DIAG INJ SC/IM CPT-4: 76978 07/16/2018 THER/PROPH/DIAG INJ SC/IM CPT-4: 08026 07/02/2018 PPPS, SUBSEQ VISIT CPT- 4: G0439 06/30/2018 THER/PROPH/DIAG INJ SC/IM CPT-4: 58981 06/24/2018 THER/PROPH/DIAG INJ SC/IM CPT-4: 31605 06/13/2018 ADMIN INFLUENZA VIRU S VAC CPT-4: G0008 06/06/2018 FLU VACC PRSV FREE I NC ANTIG CPT-4: 90370 06/06/2018 THER/PROPH/DIAG INJ SC/IM CPT-4: 78583 06/05/2018 THER/PROPH/DIAG INJ SC/IM CPT-4: 20451 05/30/2018 THER/PROPH/DIAG INJ SC/IM CPT-4: 90576 05/22/2018 THER/PROPH/DIAG INJ SC/IM CPT-4: 32062 05/12/2018 THER/PROPH/DIAG INJ SC/IM CPT-4: 72789 05/02/2018 THER/PROPH/DIAG INJ SC/IM CPT-4: 52195 04/24/2018 THER/PROPH/DIAG INJ SC/IM CPT-4: 05266 04/17/2018 KETOROLAC TROMETHAMI NE INJ CPT-4: J1885 03/07/2018 URINALYSIS NONAUTO W /O SCOPE CPT-4: 84412 03/07/2018 THER/PROPH/DIAG INJ SC/IM CPT-4: 12087 02/20/2018 TRIAMCINOLONE ACET I [place] NOS CPT-4: J3301 01/30/2018 THER/PROPH/DIAG INJ SC/IM CPT-4: 51646 01/17/2018 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-[address]: 791746006 CPT-4: G0436 04/25/2017 ADMIN INFLUENZA VIRU S VAC CPT-4: G0008 04/25/2017 ADMIN PNEUMOCOCCAL V ACCINE SNOMED CT: 84953327 CPT-4: G0009 04/25/2017 PNEUMOCOCCAL VACC [address]: 47121225 CPT-4: 97263 04/25/2017 FLU VACC PRSV FREE I NC ANTIG CPT-4: 82995 04/25/2017 ADMIN INFLUENZA VIRU S VAC CPT-4: G0008 05/22/2016 FLU VACC 4 TELLY 3 YRS PLUS IM Formatting Model/CDA Sections, Assigned to/Angela Clemons SNOMED CT: 40837003 CPT-4: 91213Oqqkwhc 05/22/2016 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-[address]: 895782802 CPT-4: G0436 11/25/2015 URINALYSIS NONAUTO W /O SCOPE CPT-4: 05651 05/09/2015 TRIAMCINOLONE ACET I [place] NOS CPT-4: J3301 04/12/2015 DESTRUCT PREMALG LESION CPT-4: 00227 03/07/2015 DESTRUCT PREMALG LES 2-14 CPT-4: 89010 03/07/2015 REMOVE IMPACTED EAR WAX UNI CPT-4: 32423 12/31/2014 THER/PROPH/DIAG INJ SC/IM CPT-4: 75085 12/23/2014 TRIAMCINOLONE ACET I [place] NOS CPT-4: J3301 12/23/2014 Vital Signs Date Vital 12/02/2018 Blood Pressure 1: 140/70 Code: 8480-6 BMI: 21.9 Code: 40646-2 Heart Rate 1: 61 bpm Height: 5'11" SpO2: 94% Weight: 157 lbs 10/17/2018 Blood Pressure 1: 124/54 Code: 8480-6 BMI: 21.9 Code: 78611-9 Heart Rate 1: 64 bpm Height: 5'11" SpO2: 93% Weight: 157 lbs 09/02/2018 Blood Pressure 1: 140/80 Code: 8480-6 BMI: 21.2 Code: 87285-6 Heart Rate 1: 68 bpm Height: 5'11" SpO2: 97% Weight: 152 lbs 06/30/2018 BMI: 21.8 Code: 90078-5 Height: 5'11" Weight: 156 lbs 06/06/2018 Blood Pressure 1: 128/76 Code: 8480-6 BMI: 22.0 Code: 34847-7 Heart Rate 1: 81 bpm Height: 5'11" SpO2: 92% Weight: 158 lbs 04/04/2018 Blood Pressure 1: 124/70 Code: 8480-6 BMI: 20.8 Code: 57350-2 Heart Rate 1: 65 bpm Height: 5'11" SpO2: 95% Weight: 149 lbs 03/07/2018 Blood Pressure 1: 148/70 Code: 8480-6 BMI: 21.2 Code: 41784-6 Heart Rate 1: 66 bpm Height: 5'11" SpO2: 94% Weight: 152 lbs 02/20/2018 Blood Pressure 1: 134/58 Code: 8480-6 BMI: 20.5 Code: 08967-8 Heart Rate 1: 61 bpm Height: 5'11" SpO2: 92% Weight: 147 lbs 01/30/2018 Blood Pressure 1: 158/68 Code: 8480-6 BMI: 21.5 Code: 13849-4 Heart Rate 1: 71 bpm Height: 5'11" SpO2: 92% Weight: 154 lbs 01/14/2018 Blood Pressure 1: 156/70 Code: 8480-6 Height: Weight: 01/13/2018 Blood Pressure 1: 148/62 Code: 8480-6 BMI: 20.9 Code: 70203-4 Heart Rate 1: 54 bpm Height: 5'11" SpO2: 97% Weight: 150 lbs 11/19/2017 Blood Pressure 1: 150/60 Code: 8480-6 BMI: 21.8 Code: 87434-8 Heart Rate 1: 63 bpm Height: 5'11" SpO2: 98% Weight: 156 lbs 10/02/2017 Blood Pressure 1: 168/60 Code: 8480-6 BMI: 21.9 Code: 95583-1 Heart Rate 1: 52 bpm Height: 5'11" SpO2: 97% Weight: 157 lbs 07/23/2017 Blood Pressure 1: 170/70 Code: 8480-6 BMI: 21.8 Code: 21169-1 Heart Rate 1: 65 bpm Height: 5'11" SpO2: 98% Weight: 156 lbs 04/25/2017 Blood Pressure 1: 138/60 Code: 8480-6 BMI: 21.6 Code: 87683-8 Heart Rate 1: 55 bpm Height: 5'11" SpO2: 93% Weight: 155 lbs 02/19/2017 Blood Pressure 1: 138/64 Code: 8480-6 BMI: 21.3 Code: 80642-2 Heart Rate 1: 52 bpm Height: 5'11" SpO2: 96% Weight: 152 lbs 8 oz 01/21/2017 Blood Pressure 1: 160/68 Code: 8480-6 BMI: 21.3 Code: 00319-2 Heart Rate 1: 62 bpm Height: 5'11" SpO2: 96% Weight: 153 lbs 12/20/2016 Blood Pressure 1: 124/66 Code: 8480-6 BMI: 21.5 Code: 67265-6 Height: 5'11" Weight: 154 lbs 08/23/2016 Blood Pressure 1: 142/52 Code: 8480-6 BMI: 21.2 Code: 71304-1 Heart Rate 1: 54 bpm Height: 5'11" SpO2: 96% Weight: 152 lbs 05/22/2016 Blood Pressure 1: 130/76 Code: 8480-6 BMI: 21.5 Code: 42334-1 Heart Rate 1: 78 bpm Height: 5'11" SpO2: 92% Weight: 154 lbs 02/24/2016 Blood Pressure 1: 128/80 Code: 8480-6 BMI: 21.2 Code: 25370-9 Heart Rate 1: 74 bpm Height: 5'11" SpO2: 96% Weight: 152 lbs 01/27/2016 Blood Pressure 1: 144/60 Code: 8480-6 BMI: 21.2 Code: 42838-8 Heart Rate 1: 74 bpm Height: 5'11" SpO2: 97% Weight: 152 lbs 11/25/2015 Blood Pressure 1: 110/52 Code: 8480-6 BMI: 21.9 Code: 79310-1 Heart Rate 1: 65 bpm Height: 5'11" SpO2: 92% Weight: 157 lbs 07/28/2015 Blood Pressure 1: 138/62 Code: 8480-6 BMI: 21.8 Code: 90523-7 Heart Rate 1: 63 bpm Height: 5'11" SpO2: 91% Weight: 156 lbs 05/26/2015 Blood Pressure 1: 120/58 Code: 8480-6 BMI: 21.5 Code: 51947-6 Heart Rate 1: 99 bpm Height: 5'11" SpO2: 96% Weight: 154 lbs 05/06/2015 Blood Pressure 1: 120/58 Code: 8480-6 BMI: 21.2 Code: 78614-4 Heart Rate 1: 66 bpm Height: 5'11" SpO2: 96% Weight: 152 lbs 04/25/2015 Blood Pressure 1: 136/62 Code: 8480-6 BMI: 21.2 Code: 07577-0 Heart Rate 1: 63 bpm Height: 5'11" SpO2: 97% Weight: 152 lbs 04/12/2015 Blood Pressure 1: 160/58 Code: 8480-6 BMI: 21.6 Code: 27104-7 Heart Rate 1: 62 bpm Height: 5'11" Weight: 155 lbs 03/24/2015 Blood Pressure 1: 138/68 Code: 8480-6 BMI: 22.0 Code: 02791-4 Heart Rate 1: 65 bpm Height: 5'11" SpO2: 96% Weight: 158 lbs 03/07/2015 Blood Pressure 1: 116/52 Code: 8480-6 BMI: 22.2 Code: 33691-2 Heart Rate 1: 64 bpm Height: 5'11" SpO2: 97% Weight: 159 lbs 02/17/2015 Blood Pressure 1: 148/58 Code: 8480-6 BMI: 21.3 Code: 94591-4 Heart Rate 1: 63 bpm Height: 5'11" SpO2: 97% Weight: 153 lbs 12/31/2014 Blood Pressure 1: 100/60 Code: 8480-6 BMI: 21.8 Code: 58499-5 Heart Rate 1: 68 bpm Height: 5'11" Weight: 156 lbs 12/23/2014 Blood Pressure 1: 148/64 Code: 8480-6 BMI: 21.9 Code: 42078-6 Heart Rate 1: 64 bpm Height: 5'11" [...] pain 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 P ATIENT, LEVEL III Diagnosis: Orthostatic hypotension[ICD10: I95.1] Diagnosis: Low back pain[ICD10: M54.5] Diagnosis: Unsteadiness on feet[ICD10: R26.81] Karmen Ash MD, [facility] CPT-4: 08492 10/17/2018 [id number]) 43466 EST. 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 P ATIENT, LEVEL IV Diagnosis: Cellulitis of face[ICD10: L03.211] Diagnosis: Type 2 diabetes mellitus without complications[ICD10: E11.9] Diagnosis: Essential (primary) hypertension[ICD10: I10] Diagnosis: Encounter for immunization[ICD10: Z23] Karmen Ash MD, [facility] CPT-4: 09172 06/06/2018 ([id number]) 45477 EST. 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 P ATIENT, LEVEL III Diagnosis: Low back pain[ICD10: M54.5] Diagnosis: Dysuria[ICD10: R30.0] Karmen Ash MD, [facility] CPT-4: 13936 03/07/2018 ([id number]) 04180 EST. 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 P ATIENT, LEVEL III Diagnosis: Chronic obstructive pulmonary disease with (acute) exacerbation[ICD10: J44.1] Karmen Ash MD, [facility] CPT-4: 87132 01/30/2018 65650 EST. PATIENT, LEVEL II Diagnosis: Insect bite (nonvenomous), left lower leg, initial encounter[ICD10: S80.862A] Karmen Ash MD, [facility] CPT-4: 99738 01/14/2018 ([id number]) 05296 EST. P ATIENT, LEVEL IV Diagnosis: Type 2 diabetes mellitus with hyperglycemia[ICD10: E11.65] Diagnosis: Chronic obstructive pulmonary disease, unspecified[ICD10: J44.9] Diagnosis: Other fatigue[ICD10: R53.83] Karmen Ash MD, [facility] CPT- 4: 58852 01/13/2018 ([id number]) 54733 EST. P ATIENT, LEVEL IV Diagnosis: Type 2 diabetes mellitus with hyperglycemia[ICD10: E11.65] Diagnosis: Vitamin D deficiency, unspecified[ICD10: E55.9] Diagnosis: Essential (primary) hypertension[ICD10: I10] Diagnosis: Abdominal distension (gaseous)[ICD10: R14.0] Diagnosis: Drug induced constipation[ICD10: K59.03] Karmen Ash MD, [facility] CPT-4: 41129 11/19/2017 09579 EST. PATIENT, LEVEL IV Diagnosis: Low back pain[ICD10: M54.5] Diagnosis: Chronic obstructive pulmonary disease, unspecified[ICD10: J44.9] Brunilda Ash MD, [facility] CPT-4: 76113 10/02/2017 ([id number]) 66462 EST. P ATIENT, LEVEL IV Diagnosis: Essential (primary) hypertension[ICD10: I10] Diagnosis: Type 2 diabetes mellitus with hyperglycemia[ICD10: E11.65] Diagnosis: Vitamin D deficiency, unspecified[ICD10: E55.9] Diagnosis: Mixed hyperlipidemia[ICD10: E78.2] Karmen Ash MD, [facility] CPT-4: 90907 07/23/2017 ([id number]) 07516 EST. P ATIENT, LEVEL IV Diagnosis: Essential (primary) hypertension[ICD10: I10] Diagnosis: Type 2 diabetes mellitus with hyperglycemia[ICD10: E11.65] Diagnosis: Chronic obstructive pulmonary disease, unspecified[ICD10: J44.9] Diagnosis: Nicotine dependence, unspecified, uncomplicated[ICD10: F17.200] Diagnosis: Encounter for immunization[ICD10: Z23] Karmen Ash MD, [facility] CPT-4: 49969 04/25/2017 ([id number]) 41068 EST. P ATIENT, LEVEL IV Diagnosis: Type 2 diabetes mellitus with hyperglycemia[ICD10: E11.65] Diagnosis: Essential (primary) hypertension[ICD10: I10] Diagnosis: Anemia, unspecified[ICD10: D64.9] Karmen Ash MD, [facility] CPT- 4: 56878 02/19/2017 ([id number]) 73855 EST. P ATIENT, LEVEL IV Diagnosis: Slow transit constipation[ICD10: K59.01] Diagnosis: Gastro-esophageal reflux disease without esophagitis[ICD10: K21.9] Diagnosis: Essential (primary) hypertension[ICD10: I10] Karmen Ash MD, [facility] CPT-4: 36507 01/21/2017 ([id number]) 38038 EST. P ATIENT, LEVEL IV Diagnosis: Type 2 diabetes mellitus with hyperglycemia[ICD10: E11.65] Diagnosis: Vitamin D deficiency, unspecified[ICD10: E55.9] Diagnosis: Essential (primary) hypertension[ICD10: I10] Diagnosis: Chronic obstructive pulmonary disease, unspecified[ICD10: J44.9] Karmen Ash MD, [facility] CPT-4: 83366 12/20/2016 ([id number]) 64503 EST. P ATIENT, LEVEL IV Diagnosis: Type 2 diabetes mellitus with hyperglycemia[ICD10: E11.65] Diagnosis: Essential (primary) hypertension[ICD10: I10] Diagnosis: Mixed hyperlipidemia[ICD10: E78.2] Diagnosis: Vitamin D deficiency, unspecified[ICD10: E55.9] Karmen Ash MD, [facility] CPT-4: 11021 08/23/2016 ([id number]) 27565 EST. P ATIENT, LEVEL IV Diagnosis: Type 2 diabetes mellitus with hyperglycemia[ICD10: E11.65] Diagnosis: Essential (primary) hypertension[ICD10: I10] Diagnosis: Chronic obstructive pulmonary disease, unspecified[ICD10: J44.9] Karmen Ash MD, [facility] CPT-4: 25541 05/22/2016 ([id number]) 10126 EST. P ATIENT, LEVEL III Diagnosis: Dysuria[ICD10: R30.0] Diagnosis: Essential (primary) hypertension[ICD10: I10] Karmen Ash MD, [facility] CPT-4: 29104 02/24/2016 ([id number]) 04022 EST. P ATIENT, LEVEL IV Diagnosis: Gastro-esophageal reflux disease without esophagitis[ICD10: K21.9] Diagnosis: Slow transit constipation[ICD10: K59.01] Diagnosis: Type 2 diabetes mellitus with hyperglycemia[ICD10: E11.65] Karmen Ash MD, [facility] CPT-4: 52716 01/27/2016 ([id number]) 97930 EST. P ATIENT, LEVEL IV Diagnosis: Essential (primary) hypertension[ICD10: I10] Diagnosis: Type 2 diabetes mellitus with hyperglycemia[ICD10: E11.65] Diagnosis: Vitamin D deficiency, unspecified[ICD10: E55.9] Diagnosis: Chronic obstructive pulmonary disease, unspecified[ICD10: J44.9] Diagnosis: Mixed hyperlipidemia[ICD10: E78.2] Diagnosis: Tobacco use[ICD10: Z72.0] Karmen Ash MD, [facility] CPT- 4: 12394 11/25/2015 ([id number]) 87137 EST. P ATIENT, LEVEL IV Diagnosis: Type 2 diabetes mellitus with hyperglycemia[ICD10: E11.65] Diagnosis: Essential (primary) hypertension[ICD10: I10] Diagnosis: Vitamin D deficiency, unspecified[ICD10: E55.9] Karmen Ash MD, [facility] CPT-4: 56037 07/28/2015 ([id number]) 43948 EST. P ATIENT, LEVEL III Diagnosis: Type 2 diabetes mellitus with hyperglycemia[ICD10: E11.65] Diagnosis: Essential (primary) hypertension[ICD10: I10] Violeta Ash MD, [facility] CPT-4: 08068 05/26/2015 ([id number]) 87147 EST. P ATIENT, LEVEL III Diagnosis: DIABETES TYPE II[ICD9: 250.00] Diagnosis: COPD (chronic obstructive pulmonary disease)[ICD9: 496] Diagnosis: ESSENTIAL HYPERTENSION[ICD9: 401.9] Diagnosis: Cough[ICD9: 786.2] Violeta Ash MD, [facility] CPT-4: 36934 05/06/2015 ([id number]) 16437 EST. P ATIENT, LEVEL III Diagnosis: COPD (chronic obstructive pulmonary disease)[ICD9: 496] Diagnosis: DIABETES TYPE II[ICD9: 250.00] Diagnosis: Muscle ache[ICD9: 729.1] [facility] CPT- 4: 97053 04/25/2015 ([id number]) 79345 EST. P ATIENT, LEVEL III Diagnosis: ACTINIC KERATOSIS[ICD9: 702.0] Diagnosis: COPD (chronic obstructive pulmonary disease)[ICD9: 496] Diagnosis: DIABETES TYPE II[ICD9: 250.00] Diagnosis: ACUTE URI[ICD9: 465.9] Violeta Ash MD, [facility] CPT-4: 13624 04/12/2015 ([id number]) 56922 EST. P ATIENT, LEVEL III Diagnosis: DIABETES TYPE II[ICD9: 250.00] Violeta Ash MD, [facility] CPT-4: 74562 03/24/2015 ([id number]) 24447 EST. P ATIENT, LEVEL IV Diagnosis: DIABETES TYPE II[ICD9: 250.00] Diagnosis: Hypoglycemia[ICD9: 251.2] Diagnosis: Skin texture changes[ICD9: 782.8] Violeta Ash MD, [facility] CPT-4: 21216 03/07/2015 ([id number]) 39893 EST. P ATIENT, LEVEL IV Diagnosis: COPD (chronic obstructive pulmonary disease)[ICD9: 496] Diagnosis: Fatigue[ICD9: 780.79] Diagnosis: Insulin dependent diabetes mellitus[ICD9: 250.00] Diagnosis: Unsteady gait[ICD9: 781.2] [facility] CPT-4: 35105 02/17/2015 ([id number]) 07646 EST. P ATIENT, LEVEL IV Diagnosis: BPPV (benign paroxysmal positional vertigo)[ICD9: 386.11] Diagnosis: Impacted cerumen[ICD9: 380.4] Diagnosis: ESSENTIAL HYPERTENSION[ICD9: 401.9] Diagnosis: Insulin dependent diabetes mellitus[ICD9: 250.00] [facility] CPT-4: 43003 12/23/2014 ([id number]) OFFICE VISI T, NEW - LEVEL 4 Diagnosis: Insulin dependent diabetes mellitus[ICD9: 250.00] Diagnosis: BPPV (benign paroxysmal positional vertigo)[ICD9: 386.11] Diagnosis: COPD (chronic obstructive pulmonary disease)[ICD9: 496] Diagnosis: Tobacco abuse[ICD9: 305.1] Diagnosis: Osteoarthritis[ICD9: 715.90] [facility] CPT- 4: 51585 12/09/2014 Plan of Care Planned Activity Notes C odes Status Date Appointment: Injection 12/17/2018 Patient Education: Patient Medication [...] as directed 12/02/2018 Appointment: Karmen Espinal WPtel: [address] [place], [place] [phone] (30 min) Complex 12/02/2018 Patient Education: Patient Medication Summary Completed 12/02/2018 Patient Education: Diabetes Completed 12/02/2018 Appointment: Injection 11/18/2018 Patient Education: Patient Medication Summary Completed 11/18/2018 Appointment: Injection 11/04/2018 Patient Education: Patient Medication Summary Completed 11/04/2018 Appointment: Karmen Espinal WPtel: [address] [place] [phone] [place] (30 min) Complex 10/21/2018 Visit Plan: Orthostatic [...] a walker 10/17/2018 Appointment: Karmen Espinal WPtel: [phone] [phone] (30 min) Complex 10/17/2018 Patient Education: Patient [...] medications. 09/02/2018 Appointment: [phone] [facility] [phone] (15 min) Moderate 09/02/2018 Patient Education: Patient [...] surrogate. 06/30/2018 Appointment: Karm[facility] Espinal [facility]Ptel: [phone] [facility] [phone] [facility] - Annual Wellness Visit 06/30/2018 Patient [...] pain. 06/06/2018 Appointment: Karm[facility] Espinal WPtel: [phone] [facility] [phone] (15 min) Moderate 06/06/2018 Patient Education: Patient [...] 2 months 04/04/2018 Appointment: Karmen Espinal WPtel: [phone] [phone] [place] (15 min) Moderate 04/04/2018 Patient Education: Patient Medication Summary Completed 04/04/2018 Care Plan: Cbc With Differential Pending 04/04/2018 Care Plan: Testosterone repeat in 2 months Pending 04/04/2018 Appointment: Karmen Espinal WPtel: [phone] [phone] [place] (15 min) Moderate 03/25/2018 Visit Plan: Low back pain -history of kidney stone-UA negative today -increase fluids and call if pain does not resolve or if any worse. 03/07/2018 Appointment: Karmen Espinal WPtel: [phone] [phone] [place] (15 min) Moderate 03/07/2018 Patient Education: [...] month 02/20/2018 Appointment: Karmen Espinal WPtel: [address] [place], [place] 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 01/30/2018 Appointment: Karmen Espinal WPtel: [facility]6 [phone] (15 min) Moderate 01/30/2018 Patient Education: Patient Medication Summary Completed 01/30/2018 Appointment: Karmen Espinal WPtel: [facility]5 [facility] [place] [address] (15 min) Moderate 01/28/2018 Appointment: Injection 01/17/2018 Patient Education: Patient Medication Summary Completed 01/17/2018 Visit Plan: Cellulitis - start oral antibiotics as directed, return to clinic as previously directed, call for acute change in symptoms, worsening redness, warmth, discharge. 01/14/2018 Appointment: Karmen Espinal WPtel: [facility] (10 min) Simple 01/14/2018 Patient Education: [...] less controlled. 01/13/2018 Appointment: Karmen Espinal WPtel: [address] [place] [address] (15 min) Moderate 01/13/2018 Patient Education: Patient Medication Summary Completed 01/13/2018 Referral: Hugo Villatoro [facility]:+[phone] [place] [address] Patient's informed. Referral info ned monroy. Completed [...] change in blood pressure readings at home. Xtycsyqs-hpvszp-omtiw to see Dr Villatoro Constipation-start linzess daily 11/19/2017 Appointment: Karmen Espinal WPtel: [phone] [facility] [phone] [place] (30 min) Complex 11/19/2017 Patient Education: Patient Medication Summary Completed 11/19/2017 Care Plan: Referral Order bloating, nausea SNOMED-CT : [id number] Pending 11/19/2017 Visit Plan: Low back pain- [...] stable, monitor for acute changes. 10/02/2017 Appointment: Brnuilda Maravilla WPtel: [phone] [facility] [place] [place] (15 min) Moderate 10/02/2017 Patient Education: [...] less controlled. 07/23/2017 Appointment: Karmen Espinal WPtel: [address] [place] [phone] (30 min) [facility] 07/23/2017 Patient Education: Patient Medication Summary [...] history 04/25/2017 Appointment: Karmen Espinal WPtel: [phone] [phone] (30 min) Complex 04/25/2017 Patient Education: Patient [...] readings are starting to become less controlled. Mxomcj-vncauwt-jtpij labs 02/19/2017 Appointment: Karmen Espinal WPtel: [phone] [facility] [phone] (30 min) Complex 02/19/2017 Patient Education: Patient [...] month 01/21/2017 Appointment: Karmen Espinal WPtel: [phone] [phone] (30 min) Complex 01/21/2017 Patient Education: Patient Medication Summary Completed 01/21/2017 Patient Education: Smoking and Tobacco Addiction Completed 01/21/2017 Patient Education: Hypertension Completed 01/21/2017 Care Plan: Referral Order SNOMED-CT : [id number] Pending 01/21/2017 Visit Plan: Diabetes Mellitus - [...] acute changes. 12/20/2016 Appointment: Karmen Espinal WPtel: [facility]5 [phone] (30 min) Complex 12/20/2016 Patient Education: Patient Medication Summary Completed 12/20/2016 Patient Education: Smoking and Tobacco Addiction Completed 12/20/2016 Patient Education: Hypertension Completed 12/20/2016 Appointment: Karmen Espinal WPtel: [phone] [facility] [phone] (30 min) Complex 09/06/2016 Visit Plan: Diabetes [...] level 08/23/2016 Appointment: Karmen Espinal WPtel: [phone] [facility] [phone] (30 min) Complex 08/23/2016 Patient Education: Patient [...] changes. 05/22/2016 Appointment: Karmen Espinal WPtel: [phone] [phone] (30 min) Complex 05/22/2016 Patient Education: Patient Medication Summary Completed 05/22/2016 Patient Education: Smoking and Tobacco Addiction Completed 05/22/2016 Care Plan: Cbc With Differential Ordered 05/22/2016 Care Plan: %Hba1C KIKI C : 21432-9 Ordered 05/22/2016 Care Plan: Tsh Ordered 05/22/2016 Care Plan: Comp Metabolic Ordered 05/22/2016 Visit Plan: Hypertension - well con purvilled - continue with current medications, continue with [...] with update 02/24/2016 Appointment: Karmen Espinal WPtel: [facility]5 [phone] (30 min) Complex 02/24/2016 Patient Education: Patient [...] this regimen. 01/27/2016 Appointment: Karmen Espinal WPtel: [facility] [phone] (30 min) Complex 01/27/2016 Patient Education: Patient [...] use medication to assist cessation. 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 Yijpkwau-hnrvkebt-PAXA SIMVASTATIN X 2 WEEKS AND CALL WITH [...] Care Plan: COMPLETE CBC AUTOMATED LOINC : 21775-8 Ordered 03/24/2015 Visit Plan: Diabetes Mellitus - [...] for removal. 03/07/2015 Appointment: Violeta Ash WPtel: [facility] (15 min) Moderate 03/07/2015 Patient Education: [...] Care Plan: COMPLETE CBC AUTOMATED LOINC : 69969-2 Ordered 12/23/2014 Visit Plan: BPPV - Benign [...] next appt 12/09/2014 Appointment: Karmen Espinal WPtel: [phone] [facility] [phone] [place] ([place]) New Patient 12/09/2014 Patient Education: Patient Medication Summary Completed 12/09/2014 Patient Education: .Amazing charts Parox ysmal positional vertigo Completed 12/09/2014 Patient Education: Smoking and Tobacco Addiction Completed 12/09/2014 Referral: Hugo Villatoro HPtel:[phone] [facility] [place] Referral Appointment Requested Referral: Luis [...] readings are starting to become less controlled. Wvjoyw-gofhkks-apfgs labs . Cellulitis - start oral antibiotics [...] change in blood pressure readings at home. Pnshngem-nwwcwt-lmrjd to see Dr Villatoro Constipation-start linzess daily [...] POTENTIAL SIDE EFFECTS AND WORSENING OF SYMPTOMS. Woauwcdh-yhgflphg-AHOF SIMVASTATIN X 2 WEEKS AND CALL WITH [...]
--- OUTSIDE RECORDS SUMMARY | 2020-03-29 08:17 | XMS REPORT | CCD ---
Author Author Dick Espinal Organization [facility] Address [address] [place] [address] Phone Care Team Providers Care Change Management Director Name Role Phone PP Unavailable CCM Unavailable Summary Purpose Interface Exchange Insurance Providers Payer name Policy type / Coverage type Covered green party ID Effective Begin Date Effective End Date WPS Medicare Part B Medicare Part B [id number] Unknown Unknown [employer] Medicar e Part B [id number] Unknown Unkn own Family history Father Diagnosis Age At Onset Cancer Unknown Mother Diagnosis Age At Onset Cancer Unknown Social History Social History Element Codes Description Effective Dates Marital status Unknown M arried 12/09/2014 Employment Unknown Retir ed 12/09/[address]: 78442256 Currently smokes tobacco 12/09/2014 Number of years using tobacco Unknown > 50 12/09/2014 Number of cigarettes/day Unknown 30 (Pack and a half) 12/09/[address]: 094095738 Never drinks alcohol 12/09/2014 Allergies, Adverse Reactions, [...] cypiona te 200 mg/mL intramuscular oil RxNorm: 2481093 Milliliter(s) IM 12/17/2018 12/17/2018 In active hydrocodone 5 mg-linh taminophen 325 mg tablet RxNorm: 360674 1 Tablet(s) PO Q6-8H as needed 12/15/2018 01/08/2019 Active testosterone cypiona te 200 mg/mL intramuscular oil RxNorm: 6366040 Milliliter(s) IM 12/02/2018 12/02/2018 In active testosterone cypiona te 200 mg/mL intramuscular oil RxNorm: 7077318 Milliliter(s) IM 11/18/2018 11/18/2018 In active hydrocodone 5 mg-linh taminophen 325 mg tablet RxNorm: 808666 1 Tablet(s) PO Q6-8H as needed 11/13/2018 12/07/2018 Inactive testosterone cypiona te 200 mg/mL intramuscular oil RxNorm: 8418101 1/2 Milliliter(s) IM [id number] 11/04/2018 03/03/2019 Active testosterone cypiona te 200 mg/mL intramuscular oil RxNorm: 9751236 Milliliter(s) IM 11/04/2018 11/04/2018 In active nicotine 21 mg/24 hr daily transdermal patch RxNorm: 219784 1 TD daily 10/31/2018 10/30/2018 In active nicotine 21 mg/24 hr daily transdermal patch RxNorm: 747364 1 TD daily 10/31/2018 11/29/2018 In active meclizine 25 mg tablet RxNorm: 363229 1 Tablet(s) PO Q6 PRN TAKE ONE TABLET BY MOUTH EVERY 6 HOURS NEEDED 10/17/2018 01/14/2019 Active hydrocodone 5 mg-linh taminophen 325 mg tablet RxNorm: 756374 1 Tablet(s) PO Q6-8H as needed 10/17/2018 11/10/2018 Inactive metformin 500 mg tablet RxNorm: 480328 Tablet(s) TAKE 1 TABLET BY MOUTH DAILY 10/15/2018 10/09/2019 Ac tive lisinopril 10 mg tablet RxNorm: 655968 TAKE 1 TABLET BY MOUTH TWO TIMES DAILY 10/15/2018 10/09/2019 Ac tive - First Attempt Ref: [id number] testosterone cypiona te 200 mg/mL intramuscular oil RxNorm: 1026175 Milliliter(s) IM 10/14/2018 10/14/2018 In active Xanax 0.5 mg tablet RxNorm: 967188 1 Tablet(s) PO TID 10/03/2018 11/30/2018 Inactive testosterone cypiona te 200 mg/mL intramuscular oil RxNorm: 3333884 1/2 Milliliter(s) IM weekly 10/03/2018 11/03/2018 Inactive testosterone cypiona te 200 mg/mL intramuscular oil RxNorm: 1786994 Milliliter(s) IM 10/03/2018 10/03/2018 In active testosterone cypiona te 200 mg/mL intramuscular oil RxNorm: 8694323 Milliliter(s) IM 09/23/2018 09/23/2018 In active hydrocodone 5 mg-linh taminophen 325 mg tablet RxNorm: 644222 1 Tablet(s) PO Q6-8H as needed 09/22/2018 10/16/2018 Inactive testosterone cypiona te 200 mg/mL intramuscular oil RxNorm: 9239944 1/2 Milliliter(s) IM 09/02/2018 09/02/2018 Inactive testosterone enantha te 200 mg/mL intramuscular oil RxNorm: 202578 Milliliter(s) IM 08/21/2018 08/21/2018 In active hydrocodone 5 mg-linh taminophen 325 mg tablet RxNorm: 191455 1 Tablet(s) PO Q6-8H as needed 08/21/2018 09/14/2018 Inactive testosterone cypiona te 200 mg/mL intramuscular oil RxNorm: 0090441 Milliliter(s) IM 08/08/2018 08/08/2018 In active testosterone cypiona te 200 mg/mL intramuscular oil RxNorm: 8754007 1/2 Milliliter(s) IM 07/28/2018 07/28/2018 Inactive hydrocodone 5 mg-linh taminophen 325 mg tablet RxNorm: 786607 1 Tablet(s) PO Q6-8H as needed 07/21/2018 08/14/2018 Inactive testosterone cypiona te 200 mg/mL intramuscular oil RxNorm: 148094 Milliliter(s) IM 07/16/2018 07/16/2018 In active testosterone cypiona te 200 mg/mL intramuscular oil RxNorm: 704853 Milliliter(s) IM 07/02/2018 07/02/2018 In active Xanax 0.5 mg tablet RxNorm: 951202 1 Tablet(s) PO TID 06/27/2018 08/24/2018 Inactive testosterone cypiona te 200 mg/mL intramuscular oil RxNorm: 625447 Milliliter(s) IM 06/24/2018 06/24/2018 In active hydrocodone 5 mg-linh taminophen 325 mg tablet RxNorm: 660364 1 Tablet(s) PO Q6-8H as needed 06/23/2018 07/17/2018 Inactive testosterone cypiona te 200 mg/mL intramuscular oil RxNorm: 479221 Milliliter(s) IM 06/13/2018 06/13/2018 In active testosterone cypiona te 200 mg/mL intramuscular oil RxNorm: 171279 Milliliter(s) IM 06/05/2018 06/05/2018 In active testosterone cypiona te 200 mg/mL intramuscular oil RxNorm: 5288381 1/2 Milliliter(s) IM weekly 05/30/2018 09/26/2018 Inactive testosterone cypiona te 200 mg/mL intramuscular oil RxNorm: 535258 Milliliter(s) IM 05/30/2018 05/30/2018 In active testosterone cypiona te 200 mg/mL intramuscular oil RxNorm: 925266 Milliliter(s) IM 05/22/2018 05/22/2018 In active hydrocodone 5 mg-linh taminophen 325 mg tablet RxNorm: 981418 1 Tablet(s) PO Q6-8H as needed 05/20/2018 06/13/2018 Inactive testosterone cypiona te 200 mg/mL intramuscular oil RxNorm: 996789 1/2 Milliliter(s) IM 05/12/2018 05/12/2018 Inactive testosterone cypiona te 200 mg/mL intramuscular oil RxNorm: 471737 Milliliter(s) IM 05/02/2018 05/02/2018 In active testosterone cypiona te 200 mg/mL intramuscular oil RxNorm: 253563 1/2 Milliliter(s) IM weekly 04/24/2018 05/29/2018 Inactive testosterone cypiona te 200 mg/mL intramuscular oil RxNorm: 187267 0.5 Milliliter(s) IM 04/24/2018 04/24/2018 Inactive hydrocodone 5 mg-linh taminophen 325 mg tablet RxNorm: 217742 1 Tablet(s) PO Q6-8H as needed 04/22/2018 05/16/2018 Inactive testosterone cypiona te 200 mg/mL intramuscular oil RxNorm: 484387 1/2 Milliliter(s) IM 04/17/2018 04/17/2018 Inactive testosterone cypiona te 200 mg/mL intramuscular oil RxNorm: 074057 1/2 Milliliter(s) IM weekly 04/16/2018 04/23/2018 Inactive Jardiance 10 mg tablet RxNorm: 7945538 1 Tablet(s) PO daily 04/04/2018 12/29/2018 Active Protonix 40 mg table t,delayed release RxNorm: 568637 1 Tablet(s) PO daily TAKE 1 TABLET BY MOUTH DAILY 04/04/2018 03/29/2019 Active - Ref: [id number] testosterone cypiona te 200 mg/mL intramuscular oil RxNorm: 040177 1 Milliliter(s) IM monthly 04/04/2018 04/15/2018 Inactive hydrocodone 5 mg-linh taminophen 325 mg tablet RxNorm: 688511 1 Tablet(s) PO Q6-8H as needed 03/19/2018 04/12/2018 Inactive Flomax 0.4 mg capsule RxNorm: 434743 1 Capsule(s) PO daily 03/10/2018 03/04/2019 Active Urecholine 25 mg tablet RxNorm: 531432 1 Tablet(s) PO BID 03/10/2018 07/07/2018 Inactive ketorolac 60 mg/2 mL intramuscular solution RxNorm: 4070625 Milliliter(s) IM 03/07/2018 03/07/2018 In active metformin 500 mg tablet RxNorm: 384500 Tablet(s) TAKE 1 TABLET BY MOUTH DAILY 02/20/2018 02/13/2019 Ac tive 1 q am and 1/2 tab q pm hydrocodone 5 mg-linh taminophen 325 mg tablet RxNorm: 685592 1 Tablet(s) PO Q6-8H as needed 02/20/2018 03/16/2018 Inactive Kenalog 40 mg/mL bartolome pension for injection RxNorm: 9339967 1.5 Milliliter(s) In j 01/30/2018 01/30/2018 In active hydrocodone 5 mg-linh taminophen 325 mg tablet RxNorm: 368599 1 Tablet(s) PO Q6-8H as needed 01/23/2018 02/16/2018 Inactive Urecholine 25 mg tablet RxNorm: 174772 1 Tablet(s) PO BID 01/22/2018 03/09/2018 Inactive Flomax 0.4 mg capsule RxNorm: 834804 1 Capsule(s) PO daily 01/22/2018 03/09/2018 Inactive Flomax 0.4 mg capsule RxNorm: 795741 1 Capsule(s) PO daily 01/22/2018 01/21/2018 Inactive Urecholine 25 mg tablet RxNorm: 946693 1 Tablet(s) PO BID 01/22/2018 01/21/2018 Inactive testosterone cypiona te 200 mg/mL intramuscular oil RxNorm: 683682 Milliliter(s) IM 01/17/2018 01/17/2018 In active testosterone cypiona te 200 mg/mL intramuscular oil RxNorm: 238919 1 Milliliter(s) IM monthly 01/17/2018 04/03/2018 Inactive doxycycline hyclate 100 mg tablet RxNorm: 329684 1 Tablet(s) PO BID 01/14/2018 01/23/2018 Inactive lisinopril 10 mg tablet RxNorm: 360844 TAKE 1 TABLET BY MOUTH TWO TIMES DAILY 01/14/2018 10/14/2018 In active - First Attempt Ref: [id number] Xanax 0.5 mg tablet RxNorm: 529316 1 Tablet(s) PO TID 01/08/2018 04/06/2018 Inactive nystatin 100,000 uni t/mL oral suspension RxNorm: 602901 4 Milliliter(s) PO QI D Swish and swallow 01/08/2018 01/07/2018 Inactive nystatin 100,000 uni t/mL oral suspension RxNorm: 950555 4 Milliliter(s) PO QI D Swish and swallow 01/08/2018 01/12/2018 Inactive simvastatin 40 mg ta blet RxNorm: 806751 TAKE 1 TABLET BY MOUT H DAILY AT BEDTIME 12/30/2017 12/24/2018 Ac tive - First Attempt Ref: [id number] metformin 500 mg tablet RxNorm: 699341 TAKE 1 TABLET BY MOUTH DAILY 12/30/2017 02/19/2018 Inactive - First Attempt Ref: [id number] hydrocodone 5 mg-linh taminophen 325 mg tablet RxNorm: 516930 1 Tablet(s) PO Q6-8H as needed 12/25/2017 01/18/2018 Inactive Protonix 40 mg table t,delayed release RxNorm: 403792 Tablet(s) TAKE 1 TABL ET BY MOUTH DAILY 11/20/2017 04/03/2018 Inactive - Ref: [id number] Linzess 72 mcg capsule RxNorm: 9707037 1 Capsule(s) PO daily 11/19/2017 No Stop Date Active hydrocodone 5 mg-linh taminophen 325 mg tablet RxNorm: 114312 1 Tablet(s) PO Q6-8H as needed 11/19/2017 12/13/2017 Inactive hydrocodone 5 mg-linh taminophen 325 mg tablet RxNorm: 277741 1 Tablet(s) PO Q6-8H as needed 10/28/2017 11/18/2017 Inactive Xanax 0.5 mg tablet RxNorm: 837434 1 Tablet(s) PO TID 10/25/2017 12/22/2017 Inactive Xanax 0.5 mg tablet RxNorm: 323156 TAKE ONE TABLET BY MOUTH THREE TIMES A D AY 10/24/2017 12/01/2018 In active hydrocodone 5 mg-linh taminophen 325 mg tablet RxNorm: 923726 1 Tablet(s) PO Q6-8H as needed 09/30/2017 10/24/2017 Inactive Protonix 40 mg table t,delayed release RxNorm: 778280 TAKE 1 TABLET BY MOUT H DAILY 09/16/2017 11/19/2017 In active - Ref: [id number] Yovana SoloStar 300 unit/mL (1.5 mL) subcutaneous insulin pen RxNorm: 4616442 35 Unit(s) SQ QHS 08/30/2017 No Stop Date Active dosage increase hydrocodone 5 mg-linh taminophen 325 mg tablet RxNorm: 914712 1 Tablet(s) PO Q6-8H as needed 08/28/2017 09/29/2017 Inactive hydrocodone 5 mg-linh taminophen 325 mg tablet RxNorm: 782584 1 Tablet(s) PO Q6-8H as needed 07/23/2017 08/24/2017 Inactive lisinopril 10 mg tablet RxNorm: 080187 1 Tablet(s) PO BID Take 1 tablet by mout h daily 07/23/2017 01/13/2018 Inactive hydrocodone 5 mg-linh taminophen 325 mg tablet RxNorm: 828599 1 Tablet(s) PO Q6-8H as needed 06/27/2017 07/22/2017 Inactive Xanax 0.5 mg tablet RxNorm: 730870 1 Tablet(s) PO TID 06/18/2017 10/25/2017 Inactive hydrocodone 5 mg-linh taminophen 325 mg tablet RxNorm: 914923 1 Tablet(s) PO Q6-8H as needed 05/27/2017 06/26/2017 Inactive Levaquin 500 mg tablet RxNorm: 688739 1 Tablet(s) PO daily 05/24/2017 05/23/2017 Inactive Levaquin 500 mg tablet RxNorm: 951040 1 Tablet(s) PO daily 05/24/2017 05/30/2017 Inactive Protonix 40 mg table t,delayed release RxNorm: 714528 Take 1 tablet by mout h daily 04/29/2017 09/15/2017 In active - Ref: [id number] hydrocodone 5 mg-linh taminophen 325 mg tablet RxNorm: 099674 1 Tablet(s) PO Q6-8H as needed 04/25/2017 05/26/2017 Inactive metformin 500 mg tablet RxNorm: 212643 Take 1 tablet by mouth daily 04/08/2017 12/29/2017 Inactive - First Attempt Ref: [id number] hydrocodone 5 mg-linh taminophen 325 mg tablet RxNorm: 433662 1 Tablet(s) PO Q6-8H as needed 03/27/2017 04/24/2017 Inactive hydrocodone 5 mg-linh taminophen 325 mg tablet RxNorm: 771182 1 Tablet(s) PO Q6-8H as needed 02/25/2017 03/26/2017 Inactive Protonix 40 mg table t,delayed release RxNorm: 182283 Tablet(s) Take 1 tabl et by mouth BID 02/25/2017 04/28/2017 Inactive Protonix 40 mg table t,delayed release RxNorm: 517979 Tablet(s) Take 1 tabl et by mouth BID 02/19/2017 02/18/2017 Inactive Protonix 40 mg table t,delayed release RxNorm: 338816 Tablet(s) Take 1 tabl et by mouth BID 02/19/2017 02/24/2017 Inactive lisinopril 10 mg tablet RxNorm: 674820 Take 1 tablet by mouth daily 01/29/2017 07/22/2017 Inactive - First Attempt Ref: [id number] hydrocodone 5 mg-linh taminophen 325 mg tablet RxNorm: 240497 1 Tablet(s) PO Q6-8H as needed 01/25/2017 02/24/2017 Inactive simvastatin 40 mg ta blet RxNorm: 131200 Tablet(s) Take 1 tabl et by mouth daily at bedtime 01/03/2017 12/28/2017 Inactive lisinopril 10 mg tablet RxNorm: 122436 Tablet(s) Take 1 tablet by mouth daily 01/03/2017 01/28/2017 In active Protonix 40 mg table t,delayed release RxNorm: 796119 Tablet(s) Take 1 tabl et by mouth daily 12/28/2016 02/18/2017 Inactive hydrocodone 5 mg-linh taminophen 325 mg tablet RxNorm: 588516 1 Tablet(s) PO Q6-8H as needed 12/26/2016 01/24/2017 Inactive Xanax 0.5 mg tablet RxNorm: 595088 1 Tablet(s) PO TID 12/12/2016 03/11/2017 Inactive simvastatin 40 mg ta blet RxNorm: 640173 Tablet(s) Take 1 tabl et by mouth daily at bedtime 11/30/2016 01/02/2017 Inactive simvastatin 40 mg ta blet RxNorm: 194557 Take 1 tablet by mout h daily at bedtime 11/29/2016 11/29/2016 In active - First Attempt Ref: [id number] Protonix 40 mg table t,delayed release RxNorm: 853960 Take 1 tablet by mout h daily 11/27/2016 12/27/2016 In active - First Attempt Ref: [id number] hydrocodone 5 mg-linh taminophen 325 mg tablet RxNorm: 717882 1 Tablet(s) PO Q6-8H as needed 11/26/2016 12/25/2016 Inactive hydrocodone 5 mg-linh taminophen 325 mg tablet RxNorm: 981253 1 Tablet(s) PO Q8 as needed 10/24/2016 11/25/2016 Inactive Xanax 0.5 mg tablet RxNorm: 743811 1 Tablet(s) PO TID 10/09/2016 12/25/2016 Inactive hydrocodone 5 mg-linh taminophen 325 mg tablet RxNorm: 957632 1 Tablet(s) PO Q8 as needed 09/27/2016 10/23/2016 Inactive lisinopril 10 mg tablet RxNorm: 543324 Take 1 tablet by mouth daily 09/25/2016 01/02/2017 Inactive - First Attempt Ref: [id number] Vitamin D2 50,000 un it capsule RxNorm: 815774 1 Capsule(s) PO QW 09/06/2016 12/01/2018 Inactive hydrocodone 5 mg-linh taminophen 325 mg tablet RxNorm: 789150 1 Tablet(s) PO Q8 as needed 08/28/2016 09/26/2016 Inactive Toujeo SoloStar 300 unit/mL (1.5 mL) subcutaneous insulin pen RxNorm: 2207216 25 Unit(s) SQ QHS 08/23/2016 08/29/2017 Inactive dosage increase hydrocodone 5 mg-linh taminophen 325 mg tablet RxNorm: 037247 1 Tablet(s) PO Q8 as needed 07/26/2016 08/27/2016 Inactive Protonix 40 mg table t,delayed release RxNorm: 477613 Take 1 tablet by mout h daily 07/24/2016 11/26/2016 In active - First Attempt Ref: [id number] hydrocodone 5 mg-linh taminophen 325 mg tablet RxNorm: 626968 1 Tablet(s) PO Q8 as needed 06/19/2016 07/21/2016 Inactive Toujeo SoloStar 300 unit/mL (1.5 mL) subcutaneous insulin pen RxNorm: 5406998 32 Unit(s) SQ QHS 05/30/2016 08/22/2016 Inactive dosage increase hydrocodone 5 mg-linh taminophen 325 mg tablet RxNorm: 545725 1 Tablet(s) PO Q8 as needed 05/22/2016 06/18/2016 Inactive hydrocodone 5 mg-linh taminophen 325 mg tablet RxNorm: 287526 1 Tablet(s) PO Q8 as needed 04/18/2016 05/17/2016 Inactive Protonix 40 mg table t,delayed release RxNorm: 439973 Take 1 tablet by mout h daily 04/05/2016 07/03/2016 In active - Ref: [id number] metformin 500 mg tablet RxNorm: 124998 Take 1 tablet by mouth daily 04/04/2016 07/02/2016 Inactive - Ref: [id number] Xanax 0.5 mg tablet RxNorm: 831050 1 Tablet(s) PO TID 03/30/2016 09/25/2016 Inactive Xanax 0.5 mg tablet RxNorm: 407612 1 Tablet(s) PO TID 03/23/2016 12/25/2016 Inactive hydrocodone 5 mg-linh taminophen 325 mg tablet RxNorm: 097226 1 Tablet(s) PO Q8 as needed 03/06/2016 04/04/2016 Inactive Cipro 500 mg tablet RxNorm: 402873 1 Tablet(s) PO BID 02/24/2016 03/04/2016 Inactive Miralax 17 gram oral powder packet RxNorm: 288645 1 packet PO every oth er day 01/27/2016 No Stop Date Active hydrocodone 5 mg-linh taminophen 325 mg tablet RxNorm: 444257 1 Tablet(s) PO Q8 as needed 01/27/2016 02/25/2016 Inactive lisinopril 10 mg tablet RxNorm: 263660 1 Tablet(s) PO daily 01/12/2016 09/24/2016 Inactive simvastatin 40 mg ta blet RxNorm: 332972 1 Tablet(s) PO QHS 01/12/2016 11/28/2016 Inactive simvastatin 40 mg ta blet RxNorm: 215735 1 Tablet(s) PO QHS 01/11/2016 01/11/2016 Inactive lisinopril 10 mg tablet RxNorm: 889185 1 Tablet(s) PO daily 01/06/2016 01/11/2016 Inactive simvastatin 40 mg ta blet RxNorm: 028589 1 Tablet(s) PO daily 12/28/2015 01/10/2016 Inactive hydrocodone 5 mg-linh taminophen 325 mg tablet RxNorm: 755164 1 Tablet(s) PO Q8 as needed 12/27/2015 01/26/2016 Inactive Xanax 0.5 mg tablet RxNorm: 990097 1 Tablet(s) PO TID 11/30/2015 03/29/2016 Inactive Toujeo SoloStar 300 unit/mL (1.5 mL) subcutaneous insulin pen RxNorm: 1513238 30 Unit(s) SQ QHS 11/25/2015 05/29/2016 Inactive dosage increase meclizine 25 mg tablet RxNorm: 093323 1 Tablet(s) PO Q6 PRN TAKE ONE TABLET BY MOUTH EVERY 6 HOURS NEEDED 11/25/2015 02/22/2016 Inactive omeprazole 20 mg cap jacuqelyn,delayed release RxNorm: 205363 1 Capsule(s) PO daily 10/06/2015 01/26/2016 In active Toujeo SoloStar 300 unit/mL (1.5 mL) subcutaneous insulin pen RxNorm: 6073307 35 Unit(s) SQ QHS 08/02/2015 11/24/2015 Inactive dosage increase Vitamin D2 50,000 un it capsule RxNorm: 085957 1 Capsule(s) PO QW 08/02/2015 09/05/2016 Inactive hydrocodone 5 mg-linh taminophen 325 mg tablet RxNorm: 379463 1 Tablet(s) PO Q8 as needed 07/11/2015 12/26/2015 Inactive Xanax 0.5 mg tablet RxNorm: 175643 1 Tablet(s) PO TID 06/30/2015 06/29/2015 Inactive Xanax 0.5 mg tablet RxNorm: 622848 1 Tablet(s) PO TID 06/30/2015 12/25/2015 Inactive hydrocodone 5 mg-linh taminophen 325 mg tablet RxNorm: 633062 1 Tablet(s) PO Q8 as needed 05/06/2015 07/10/2015 Inactive Symbicort 160 mcg-4. 5 mcg/actuation HFA aerosol inhaler RxNorm: 8070526 INH 04/25/2015 No Stop Date Active Levemir FlexTouch 10 0 unit/mL (3 mL) subcutaneous insulin pen RxNorm: 715737 30 Unit(s) SQ QHS 04/25/2015 11/24/2015 Inactive prednisone 20 mg tablet RxNorm: 947556 1 Tablet(s) PO BID 04/25/2015 04/29/2015 Inactive metformin 500 mg tablet RxNorm: 705682 1 Tablet(s) PO daily 04/25/2015 04/03/2016 Inactive amoxicillin 500 mg c apsule RxNorm: 500319 1 Capsule(s) PO TID 04/14/2015 04/13/2015 Inactive amoxicillin 500 mg c apsule RxNorm: 169700 1 Capsule(s) PO TID a nd recommend probiotic tid (otc) 04/14/2015 04/20/2015 Inactive Kenalog 40 mg/mL bartolome pension for injection RxNorm: 9463746 Milliliter(s) Inj 04/12/2015 04/12/2015 In active hydrocodone 5 mg-linh taminophen 325 mg tablet RxNorm: 168299 1 Tablet(s) PO Q8 as needed 03/30/2015 05/05/2015 Inactive Lantus 100 unit/mL s ubcutaneous solution RxNorm: 104944 25 Unit(s) SQ QPM 03/24/2015 04/25/2015 In active meclizine 25 mg tablet RxNorm: 632497 Tablet(s) TAKE ONE TABLET BY MOUTH EVERY 6 HOURS NEEDED 03/08/2015 04/06/2015 Inactive meclizine 25 mg tablet RxNorm: 228410 TAKE ONE TABLET BY MOUTH EVERY 6 HOURS A S NEEDED 02/25/2015 03/03/2015 Inactive Lantus 100 unit/mL s ubcutaneous solution RxNorm: 002763 20 Unit(s) SQ QPM 02/23/2015 03/23/2015 In active Lantus 100 unit/mL s ubcutaneous solution RxNorm: 904849 25 Unit(s) SQ QPM 02/23/2015 02/22/2015 In active hydrocodone 5 mg-linh taminophen 325 mg tablet RxNorm: 095705 1 Tablet(s) PO Q8 as needed 02/17/2015 03/29/2015 Inactive Xanax 0.5 mg tablet RxNorm: 258847 1 Tablet(s) PO TID 02/03/2015 06/29/2015 Inactive Lantus 100 unit/mL s ubcutaneous solution RxNorm: 510909 20 Unit(s) SQ QPM 12/29/2014 02/22/2015 In active Phenergan 12.5 mg re ctal suppository RxNorm: 812346 1 Suppository RTL Q6 PRN 12/23/2014 No Stop Date Active nausea Kenalog 40 mg/mL bartolome pension for injection RxNorm: 7229748 Milliliter(s) Inj 12/23/2014 12/23/2014 In active prednisone 20 mg tablet RxNorm: 122762 2 Tablet(s) PO daily 12/13/2014 12/17/2014 Inactive prednisone 20 mg tablet RxNorm: 306301 2 Tablet(s) PO daily 12/13/2014 12/12/2014 Inactive meclizine 25 mg tablet RxNorm: 060343 1 Tablet(s) PO Q6 PRN 12/09/2014 02/24/2015 Inactive hydrocodone 5 mg-linh taminophen 325 mg tablet RxNorm: 865783 1 Tablet(s) PO Q8 as needed 12/09/2014 02/16/2015 Inactive Vitamin B-12 1,000 m cg/mL oral drops RxNorm: 4050993 1 Milliliter(s) PO d aily No Start Date Active Alphagan P 0.1 % eye drops RxNorm: 213190 1 Drop(s) OPH BID No Start Date Active aspirin 325 mg table t,delayed release RxNorm: 750238 1 Tablet(s) PO daily No Start Date Active Tricor 145 mg tablet RxNorm: 284954 1 Tablet(s) PO daily No Start Date Active vitamin [id number] B1 oral liquid RxNorm: 1,000 Microgram(s) PO daily No Start Date Active atenolol 50 mg tablet RxNorm: 350062 1 Tablet(s) PO daily No Start Date Active Protonix 40 mg table t,delayed release RxNorm: 175485 1 Tablet(s) PO daily No Start Date 04/04/2016 Inactive glipizide 10 mg tablet RxNorm: 088551 1 Tablet(s) PO BID No Start Date 03/22/2015 Inactive Lantus 100 unit/mL s ubcutaneous solution RxNorm: 957434 15 Unit(s) SQ QPM No Start Date 12/28/2014 Inactive lisinopril 10 mg tablet RxNorm: 130162 1 Tablet(s) PO daily No Start Date 01/05/2016 Inactive Vitamin D2 50,000 un it capsule RxNorm: 943433 1 Capsule(s) PO QW No Start Date 08/01/2015 Inactive Touanuj SoloStar 300 unit/mL (1.5 mL) subcutaneous insulin pen RxNorm: 7372046 30 Unit(s) SQ QHS No Start Date 08/01/2015 Inactive simvastatin 40 mg ta blet RxNorm: 666691 1 Tablet(s) PO daily No Start Date 12/27/2015 Inactive testosterone cypiona te 200 mg/mL intramuscular oil RxNorm: 995506 1 Milliliter(s) IM monthly No Start Date 01/16/2018 Inactive hydrocodone 5 mg-linh taminophen 325 mg tablet RxNorm: 515320 1 Tablet(s) PO Q8 as needed No Start Date 12/08/2014 Inactive metformin 500 mg tablet RxNorm: 695420 1 Tablet(s) PO daily No Start Date 04/24/2015 Inactive omeprazole 20 mg cap jacquelyn,delayed release RxNorm: 995877 1 Capsule(s) PO daily No Start Date 10/05/2015 Inactive Flomax 0.4 mg capsule RxNorm: 223636 1 Capsule(s) PO daily No Start Date 03/23/2015 Inactive Medication Administered Medication Codes Instruc tions Start Date Status testosterone cypionate 200 mg/mL intramuscular oil RxNorm: 6107261 Milliliter 12/17/2018 Active testosterone cypionate 200 mg/mL intramuscular oil RxNorm: 6314220 Milliliter 12/02/2018 No longer Active testosterone cypionate 200 mg/mL intramuscular oil RxNorm: 1901345 Milliliter 11/18/2018 No longer Active testosterone cypionate 200 mg/mL intramuscular oil RxNorm: 7972419 Milliliter 11/04/2018 No longer Active testosterone cypionate 200 mg/mL intramuscular oil RxNorm: 5544092 Milliliter 10/14/2018 No longer Active testosterone cypionate 200 mg/mL intramuscular oil RxNorm: 0312176 Milliliter 10/03/2018 No longer Active testosterone cypionate 200 mg/mL intramuscular oil RxNorm: 6967002 Milliliter 09/23/2018 No longer Active testosterone cypionate 200 mg/mL intramuscular oil RxNorm: 8472165 1/2Milliliter 09/02/2018 No longer Active testosterone enanthate 200 mg/mL intramuscular oil RxNorm: 153238 Milliliter 08/21/2018 No longer Active testosterone cypionate 200 mg/mL intramuscular oil RxNorm: 6903805 Milliliter 08/08/2018 No longer Active testosterone cypionate 200 mg/mL intramuscular oil RxNorm: 0291833 1/2Milliliter 07/28/2018 No longer Active testosterone cypionate 200 mg/mL intramuscular oil RxNorm: 129401 Milliliter 07/16/2018 No longer Active testosterone cypionate 200 mg/mL intramuscular oil RxNorm: 402373 Milliliter 07/02/2018 No longer Active testosterone cypionate 200 mg/mL intramuscular oil RxNorm: 465583 Milliliter 06/24/2018 No longer Active testosterone cypionate 200 mg/mL intramuscular oil RxNorm: 420505 Milliliter 06/13/2018 No longer Active testosterone cypionate 200 mg/mL intramuscular oil RxNorm: 951887 Milliliter 06/05/2018 No longer Active testosterone cypionate 200 mg/mL intramuscular oil RxNorm: 706878 Milliliter 05/30/2018 No longer Active testosterone cypionate 200 mg/mL intramuscular oil RxNorm: 701442 Milliliter 05/22/2018 No longer Active testosterone cypionate 200 mg/mL intramuscular oil RxNorm: 680391 /2Milliliter 05/12/2018 No longer Active testosterone cypionate 200 mg/mL intramuscular oil RxNorm: 398585 Milliliter 05/02/2018 No longer Active testosterone cypionate 200 mg/mL intramuscular oil RxNorm: 955306 0.5Milliliter 04/24/2018 No longer Active testosterone cypionate 200 mg/mL intramuscular oil RxNorm: 194138 /2Milliliter 04/17/2018 No longer Active ketorolac 60 mg/2 mL intramuscular solution RxNorm: 2954834 Milliliter 03/07/2018 No longer Active Kenalog 40 mg/mL suspension for injection RxNorm: 8888395 1.5Milliliter 01/30/2018 No longer Active testosterone cypionate 200 mg/mL intramuscular oil RxNorm: 204059 Milliliter 01/17/2018 No longer Active Kenalog 40 mg/mL suspension for injection RxNorm: 4494857 Milliliter 04/12/2015 No longer Active Kenalog 40 mg/mL suspension for injection RxNorm: 0850840 Milliliter 12/23/2014 No longer Active Immunizations Vaccine [...] 33.4 pg 12/02/2018 Cbc With Differential Ord2 Leslie% 8.0 % 12/02/2018 Cbc With Differential Ord2 [...] 2.13 K/ul 12/02/2018 Cbc With Differential Ord2 Leslie ABS# 0.6 K/ul 12/02/2018 Cbc With Differential Ord2 Eos ABS# 0.4 K/ul 12/02/2018 Cbc With Differential Ord2 Baso ABS# 0.0 K/ul 12/02/2018 Testosterone Tnn841 Testo 213.5 ng/dL 12/02/2018 A1C Frequency Ele177 A1CF 50337-4 Last A1C performed at [facility] on: 201812/02/2018 Testosterone Tgi468 Testo 669.0 ng/dL 09/08/2018 %Hba1C Pxs232 % HbA1c 25054-0 7.4 % 09/08/2018 %Hba1C Zri239 Gluc Ave 166 mg/dL 09/08/2018 Lipid Ord30 CHOL 114 mg/dL 09/08/2018 Lipid Ord30 HDL 28.0 mg/dl 09/08/2018 Lipid Ord30 TRIG 154 mg/dL 09/08/2018 Lipid Ord30 LDL 55 mg/dL 09/08/2018 Lipid Ord30 C/HDL 4.1 Ratio 09/08/2018 Comp Metabolic Ptl145 NA 137 mEq/L 09/08/2018 Comp Metabolic Uxj446 K 4.3 mEq/L 09/08/2018 Comp Metabolic Zri142 CL 100 mEq/L 09/08/2018 Comp Metabolic Rup371 CO2 27.0 mEq/L 09/08/2018 Comp Metabolic Hef039 AN ION GAP 14 09/08/2018 Comp Metabolic Ucp184 GL UCOSE 85 mg/dL 09/08/2018 Comp Metabolic Nld040 Cr eat 1.1 mg/dL 09/08/2018 Comp Metabolic Qmb893 eG FR 70 ml/min/1.73m2 09/08 Comp Metabolic Tjg176 BUN 11 mg/dL 09/08/2018 Comp Metabolic Ldn457 B/ C Ratio 10.3 Ratio 09/08/2018 Comp Metabolic Fmk687 CA LCIUM 9.2 mg/dL 09/08/2018 Comp Metabolic Hav613 AL K PHOS 65 U/L 09/08/2018 Comp Metabolic Wch878 T(SGOT) 16 U/L 09/08/2018 Comp Metabolic Zok308 AL T(SGPT) 14 U/L 09/08/2018 Comp Metabolic Kvc765 BI LI T 0.6 mg/dL 09/08/2018 Comp Metabolic Qkx377 AL BUMIN 4.0 g/dL 09/08/2018 Comp Metabolic Ulz192 TP RO 6.6 g/dL 09/08/2018 Comp Metabolic Fof898 GL OB 2.6 g/dL 09/08/2018 Comp Metabolic Unf012 A/ G Ratio 1.6 Ratio 09/08/2018 Comp Metabolic Ymx320 Os mo 272 mOsmo 09/08/2018 Vitamin D 25 Oh Not5427 VITAMIN D, 25 HYDROXY 37.17 ng/mL 09/08/2018 [...] 33.3 pg 09/08/2018 Cbc With Differential Ord2 Leslie% 8.1 % 09/08/2018 Cbc With Differential Ord2 [...] 2.44 K/ul 09/08/2018 Cbc With Differential Ord2 Leslie ABS# 0.6 K/ul 09/08/2018 Cbc With Differential Ord2 Eos ABS# 0.3 K/ul 09/08/2018 Cbc With Differential Ord2 Baso ABS# 0.0 K/ul 09/08/2018 Tsh Ord6 TSH (3rd IS) 2.72 uIU/mL 09/08/2018 Comp Metabolic Ych540 NA 139 mEq/L 04/01/2018 Comp Metabolic Qwr803 K 4.2 mEq/L 04/01/2018 Comp Metabolic Hkr959 CL 102 mEq/L 04/01/2018 Comp Metabolic Ozl210 CO2 29.0 mEq/L 04/01/2018 Comp Metabolic Jgr241 AN ION GAP 12 04/01/2018 Comp Metabolic Lfx992 GL UCOSE 87 mg/dL 04/01/2018 Comp Metabolic Jzt429 Cr eat 1.1 mg/dL 04/01/2018 Comp Metabolic Ptm828 eG FR 70 ml/min/1.73m2 04/01 Comp Metabolic Myj000 BUN 21 mg/dL 04/01/2018 Comp Metabolic Nyn912 B/ C Ratio 19.4 Ratio 04/01/2018 Comp Metabolic Vfn388 CA LCIUM 9.1 mg/dL 04/01/2018 Comp Metabolic Jtc936 AL K PHOS 60 U/L 04/01/2018 Comp Metabolic Guk436 T(SGOT) 15 U/L 04/01/2018 Comp Metabolic Ssx476 AL T(SGPT) 18 U/L 04/01/2018 Comp Metabolic Xqp509 BI LI T 0.4 mg/dL 04/01/2018 Comp Metabolic Lva173 AL BUMIN 4.0 g/dL 04/01/2018 Comp Metabolic Mri067 TP RO 6.5 g/dL 04/01/2018 Comp Metabolic Gor574 GL OB 2.5 g/dL 04/01/2018 Comp Metabolic Peu632 A/ G Ratio 1.6 Ratio 04/01/2018 Comp Metabolic Aka346 Os mo 280 mOsmo 04/01/2018 Lipid Ord30 [...] 34.3 pg 04/01/2018 Cbc With Differential Ord2 Leslie% 6.0 % 04/01/2018 Cbc With Differential Ord2 [...] 3.25 K/ul 04/01/2018 Cbc With Differential Ord2 Leslie ABS# 0.6 K/ul 04/01/2018 Cbc With Differential Ord2 Eos ABS# 0.4 K/ul 04/01/2018 Cbc With Differential Ord2 Baso ABS# 0.0 K/ul 04/01/2018 %Hba1C Iqv153 % HbA1c 83732-8 8.0 % 04/01/2018 %Hba1C Blt713 Gluc Ave 183 mg/dL 04/01/2018 Testosterone Ouf034 Testo 111.3 ng/dL 04/01/2018 Testosterone Ipa751 Testo 135.4 ng/dL 01/14/2018 Cbc With Differential [...] 36.0 pg 01/14/2018 Cbc With Differential Ord2 Leslie% 6.8 % 01/14/2018 Cbc With Differential Ord2 [...] 2.71 K/ul 01/14/2018 Cbc With Differential Ord2 Leslie ABS# 0.8 K/ul 01/14/2018 Cbc With Differential Ord2 Eos ABS# 0.2 K/ul 01/14/2018 Cbc With Differential Ord2 Baso ABS# 0.0 K/ul 01/14/2018 Comp Metabolic Tyc127 NA 134 mEq/L 11/20/2017 Comp Metabolic Xyt116 K 4.4 mEq/L 11/20/2017 Comp Metabolic Dio551 CL 99 mEq/L 11/20/2017 Comp Metabolic Mii104 CO2 29.0 mEq/L 11/20/2017 Comp Metabolic Scj009 AN ION GAP 10 11/20/2017 Comp Metabolic Jse921 GL UCOSE 218 mg/dL 11/20/2017 Comp Metabolic Ccr405 Cr eat 1.0 mg/dL 11/20/2017 Comp Metabolic All194 eG FR 78 ml/min/1.73m2 11/20 Comp Metabolic Mxw142 BUN 13 mg/dL 11/20/2017 Comp Metabolic Ieg757 B/ C Ratio 13.3 Ratio 11/20/2017 Comp Metabolic Llb536 CA LCIUM 9.0 mg/dL 11/20/2017 Comp Metabolic Isw781 AL K PHOS 71 U/L 11/20/2017 Comp Metabolic Uoj699 T(SGOT) 18 U/L 11/20/2017 Comp Metabolic Xao471 AL T(SGPT) 17 U/L 11/20/2017 Comp Metabolic Cbn525 BI LI T 0.4 mg/dL 11/20/2017 Comp Metabolic Tdj757 AL BUMIN 4.1 g/dL 11/20/2017 Comp Metabolic Zxi665 TP RO 6.5 g/dL 11/20/2017 Comp Metabolic Ece285 GL OB 2.4 g/dL 11/20/2017 Comp Metabolic Gmo200 A/ G Ratio 1.8 Ratio 11/20/2017 Comp Metabolic Min126 Os mo 275 mOsmo 11/20/2017 Cbc With [...] 35.2 pg 11/20/2017 Cbc With Differential Ord2 Leslie% 7.2 % 11/20/2017 Cbc With Differential Ord2 [...] 3.34 K/ul 11/20/2017 Cbc With Differential Ord2 Leslie ABS# 0.6 K/ul 11/20/2017 Cbc With Differential Ord2 Eos ABS# 0.3 K/ul 11/20/2017 Cbc With Differential Ord2 Baso ABS# 0.0 K/ul 11/20/2017 Vitamin D 25 Oh Zrv9806 VITAMIN D, 25 HYDROXY 43.72 ng/mL 11/20/2017 %Hba1C Mrl511 % HbA1c 16098-5 7.4 % 11/20/2017 %Hba1C Mqg503 Gluc Ave 166 mg/dL 11/20/2017 %Hba1C Fas373 % HbA1c 84698-0 7.2 % 08/20/2017 %Hba1C Zyd242 Gluc Ave 160 mg/dL 08/20/2017 Lipid Ord30 [...] 34.7 pg 08/20/2017 Cbc With Differential Ord2 Leslie% 7.6 % 08/20/2017 Cbc With Differential Ord2 [...] 2.42 K/ul 08/20/2017 Cbc With Differential Ord2 Leslie ABS# 0.6 K/ul 08/20/2017 Cbc With Differential Ord2 Eos ABS# 0.3 K/ul 08/20/2017 Cbc With Differential Ord2 Baso ABS# 0.0 K/ul 08/20/2017 Tsh Ord6 hTSH II 2.27 uIU/mL 08/20/2017 Comp Metabolic Sxw103 NA 138 mEq/L 08/20/2017 Comp Metabolic Crm280 K 4.3 mEq/L 08/20/2017 Comp Metabolic Jhd457 CL 102 mEq/L 08/20/2017 Comp Metabolic Klz142 CO2 29.0 mEq/L 08/20/2017 Comp Metabolic Fxc352 AN ION GAP 11 08/20/2017 Comp Metabolic Rsw575 GL UCOSE 89 mg/dL 08/20/2017 Comp Metabolic Axz479 Cr eat 1.0 mg/dL 08/20/2017 Comp Metabolic Hng379 eG FR 80 ml/min/1.73m2 08/20 Comp Metabolic Nkf927 BUN 13 mg/dL 08/20/2017 Comp Metabolic Wdu244 B/ C Ratio 13.5 Ratio 08/20/2017 Comp Metabolic Irq782 CA LCIUM 9.2 mg/dL 08/20/2017 Comp Metabolic Dbd709 AL K PHOS 69 U/L 08/20/2017 Comp Metabolic Anv566 T(SGOT) 18 U/L 08/20/2017 Comp Metabolic Nuj598 AL T(SGPT) 19 U/L 08/20/2017 Comp Metabolic Ftq641 BI LI T 0.6 mg/dL 08/20/2017 Comp Metabolic Hjc063 AL BUMIN 4.0 g/dL 08/20/2017 Comp Metabolic Sfx767 TP RO 6.6 g/dL 08/20/2017 Comp Metabolic Lsp113 GL OB 2.6 g/dL 08/20/2017 Comp Metabolic Bsp864 A/ G Ratio 1.5 Ratio 08/20/2017 Comp Metabolic Hjm279 Os mo 275 mOsmo 08/20/2017 Vitamin D 25 Oh Psf7246 VITAMIN D, 25 HYDROXY 30.96 ng/mL 08/20/2017 B12 Zik723 B12 >1500.00 pg/ml 02/22/2017 Cbc With Differential [...] 35.7 pg 02/20/2017 Cbc With Differential Ord2 Leslie% 6.3 % 02/20/2017 Cbc With Differential Ord2 [...] 3.19 K/ul 02/20/2017 Cbc With Differential Ord2 Leslie ABS# 0.5 K/ul 02/20/2017 Cbc With Differential Ord2 Eos ABS# 0.4 K/ul 02/20/2017 Cbc With Differential Ord2 Baso ABS# 0.0 K/ul 02/20/2017 Comp Metabolic Wos616 NA 138 mEq/L 02/20/2017 Comp Metabolic Tvc888 K 4.5 mEq/L 02/20/2017 Comp Metabolic Amr914 CL 101 mEq/L 02/20/2017 Comp Metabolic Zkh290 CO2 31.0 mEq/L 02/20/2017 Comp Metabolic Pjk637 AN ION GAP 11 02/20/2017 Comp Metabolic Tns660 GL UCOSE 120 mg/dL 02/20/2017 Comp Metabolic Gbx324 Cr eat 0.9 mg/dL 02/20/2017 Comp Metabolic Lgg679 eG FR 83 ml/min/1.73m2 02/20 Comp Metabolic Iym048 BUN 15 mg/dL 02/20/2017 Comp Metabolic Rka464 B/ C Ratio 16.1 Ratio 02/20/2017 Comp Metabolic Fzk197 CA LCIUM 9.1 mg/dL 02/20/2017 Comp Metabolic Fve779 AL K PHOS 67 U/L 02/20/2017 Comp Metabolic Pno432 T(SGOT) 15 U/L 02/20/2017 Comp Metabolic Nbj624 AL T(SGPT) 16 U/L 02/20/2017 Comp Metabolic Xzk956 BI LI T 0.5 mg/dL 02/20/2017 Comp Metabolic Nlu792 AL BUMIN 4.0 g/dL 02/20/2017 Comp Metabolic Mnm263 TP RO 6.4 g/dL 02/20/2017 Comp Metabolic Ckw900 GL OB 2.4 g/dL 02/20/2017 Comp Metabolic Akz255 A/ G Ratio 1.7 Ratio 02/20/2017 Comp Metabolic Ddx119 Os mo 278 mOsmo 02/20/2017 Tsh Ord6 hTSH II 2.05 uIU/mL 02/20/2017 %Hba1C Slv386 % HbA1c 03752-5 7.6 % 02/20/2017 %Hba1C Grc010 Gluc Ave 171 mg/dL 02/20/2017 Vitamin D 25 Oh Mbv5797 VITAMIN D, 25 HYDROXY 44.40 ng/mL 12/21/2016 Comp Metabolic Opf821 NA 131 mEq/L 12/21/2016 Comp Metabolic Qmn624 K 4.2 mEq/L 12/21/2016 Comp Metabolic Tfi984 CL 97 mEq/L 12/21/2016 Comp Metabolic Uok842 CO2 27.0 mEq/L 12/21/2016 Comp Metabolic Pwe213 AN ION GAP 11 12/21/2016 Comp Metabolic Lug270 GL UCOSE 266 mg/dL 12/21/2016 Comp Metabolic Lqe299 Cr eat 0.9 mg/dL 12/21/2016 Comp Metabolic Dpc300 eG FR 88 ml/min/1.73m2 12/21 Comp Metabolic Wqa467 BUN 12 mg/dL 12/21/2016 Comp Metabolic Kzl750 B/ C Ratio 13.6 Ratio 12/21/2016 Comp Metabolic Xmq932 CA LCIUM 8.6 mg/dL 12/21/2016 Comp Metabolic Yfx298 AL K PHOS 69 U/L 12/21/2016 Comp Metabolic Oix221 T(SGOT) 15 U/L 12/21/2016 Comp Metabolic Xyt803 AL T(SGPT) 14 U/L 12/21/2016 Comp Metabolic Onp602 BI LI T 0.3 mg/dL 12/21/2016 Comp Metabolic Oag630 AL BUMIN 3.7 g/dL 12/21/2016 Comp Metabolic Apm019 TP RO 5.9 g/dL 12/21/2016 Comp Metabolic Ngq928 GL OB 2.2 g/dL 12/21/2016 Comp Metabolic Fpu750 A/ G Ratio 1.7 Ratio 12/21/2016 Comp Metabolic Vhl489 Os mo 272 mOsmo 12/21/2016 Cbc With [...] 34.6 pg 12/21/2016 Cbc With Differential Ord2 Leslie% 6.9 % 12/21/2016 Cbc With Differential Ord2 [...] 2.05 K/ul 12/21/2016 Cbc With Differential Ord2 Leslie ABS# 0.4 K/ul 12/21/2016 Cbc With Differential Ord2 Eos ABS# 0.2 K/ul 12/21/2016 Cbc With Differential Ord2 Baso ABS# 0.0 K/ul 12/21/2016 Comp Metabolic Fhb147 NA 138 mEq/L 09/03/2016 Comp Metabolic Etf190 K 4.5 mEq/L 09/03/2016 Comp Metabolic Nlw289 CL 102 mEq/L 09/03/2016 Comp Metabolic Cbj884 CO2 30.0 mEq/L 09/03/2016 Comp Metabolic Xbu389 AN ION GAP 11 09/03/2016 Comp Metabolic Ueh264 GL UCOSE 113 mg/dL 09/03/2016 Comp Metabolic Bsp382 Cr eat 1.0 mg/dL 09/03/2016 Comp Metabolic Bab235 eG FR 81 ml/min/1.73m2 09/03 Comp Metabolic Pfx624 BUN 10 mg/dL 09/03/2016 Comp Metabolic Ktf533 B/ C Ratio 10.5 Ratio 09/03/2016 Comp Metabolic Odq305 CA LCIUM 9.1 mg/dL 09/03/2016 Comp Metabolic Uqb669 AL K PHOS 71 U/L 09/03/2016 Comp Metabolic Tsw293 T(SGOT) 18 U/L 09/03/2016 Comp Metabolic Vvl360 AL T(SGPT) 17 U/L 09/03/2016 Comp Metabolic Eaa308 BI LI T 0.6 mg/dL 09/03/2016 Comp Metabolic Mkl080 AL BUMIN 4.1 g/dL 09/03/2016 Comp Metabolic Kow631 TP RO 6.4 g/dL 09/03/2016 Comp Metabolic Cqe031 GL OB 2.3 g/dL 09/03/2016 Comp Metabolic Jju640 A/ G Ratio 1.8 Ratio 09/03/2016 Comp Metabolic Tfh230 Os mo 276 mOsmo 09/03/2016 Vitamin D 25 Oh Wox7627 VITAMIN D, 25 HYDROXY 28.23 ng/mL 09/03/2016 [...] 34.4 pg 09/03/2016 Cbc With Differential Ord2 Leslie% 8.9 % 09/03/2016 Cbc With Differential Ord2 [...] 3.34 K/ul 09/03/2016 Cbc With Differential Ord2 Leslie ABS# 0.7 K/ul 09/03/2016 Cbc With Differential Ord2 Eos ABS# 0.4 K/ul 09/03/2016 Cbc With Differential Ord2 Baso ABS# 0.0 K/ul 09/03/2016 Lipid Ord30 CHOL 120 mg/dL 09/03/2016 Lipid Ord30 HDL 33.0 mg/dl 09/03/2016 Lipid Ord30 TRIG 161 mg/dL 09/03/2016 Lipid Ord30 LDL 55 mg/dL 09/03/2016 Lipid Ord30 C/HDL 3.6 Ratio 09/03/2016 %Hba1C Dch350 % HbA1c 88523-4 7.5 % 09/03/2016 %Hba1C Zxm526 Gluc Ave 169 mg/dL 09/03/2016 Tsh Ord6 hTSH II 1.50 uIU/mL 05/23/2016 %Hba1C Zdl012 % HbA1c 66946-1 7.6 % 05/23/2016 %Hba1C Cyo998 Gluc Ave 171 mg/dL 05/23/2016 Comp Metabolic Ird490 NA 135 mEq/L 05/23/2016 Comp Metabolic Tpy123 K 4.4 mEq/L 05/23/2016 Comp Metabolic Ksu039 CL 99 mEq/L 05/23/2016 Comp Metabolic Vxj377 CO2 28.0 mEq/L 05/23/2016 Comp Metabolic Vua177 AN ION GAP 12 05/23/2016 Comp Metabolic Ylv537 GL UCOSE 257 mg/dL 05/23/2016 Comp Metabolic Zaq954 Cr eat 0.8 mg/dL 05/23/2016 Comp Metabolic Ipd825 eG FR 95 ml/min/1.73m2 05/23 Comp Metabolic Xwd713 BUN 11 mg/dL 05/23/2016 Comp Metabolic Tyx339 B/ C Ratio 13.3 Ratio 05/23/2016 Comp Metabolic Bbp079 CA LCIUM 9.0 mg/dL 05/23/2016 Comp Metabolic Azj638 AL K PHOS 82 U/L 05/23/2016 Comp Metabolic Eeu412 T(SGOT) 21 U/L 05/23/2016 Comp Metabolic Laf348 AL T(SGPT) 20 U/L 05/23/2016 Comp Metabolic Nux364 BI LI T 0.3 mg/dL 05/23/2016 Comp Metabolic Wbd234 AL BUMIN 4.0 g/dL 05/23/2016 Comp Metabolic Zxd474 TP RO 6.4 g/dL 05/23/2016 Comp Metabolic Ksx840 GL OB 2.4 g/dL 05/23/2016 Comp Metabolic Lwh124 A/ G Ratio 1.6 Ratio 05/23/2016 Comp Metabolic Ruk850 Os mo 278 mOsmo 05/23/2016 Cbc With [...] 34.5 pg 05/23/2016 Cbc With Differential Ord2 Leslie% 6.1 % 05/23/2016 Cbc With Differential Ord2 [...] 2.38 K/ul 05/23/2016 Cbc With Differential Ord2 Leslie ABS# 0.4 K/ul 05/23/2016 Cbc With Differential Ord2 Eos ABS# 0.2 K/ul 05/23/2016 Cbc With Differential Ord2 Baso ABS# 0.0 K/ul 05/23/2016 B12 Stw993 B12 597.00 pg/ml 05/23/2016 Metabolic Ord15 NA [...] 0.92 uIU/mL 07/29/2015 Vitamin D 25 Oh Fyu9078 VITAMIN D, 25 HYDROXY 26.93 ng/mL 07/29/2015 %Hba1C Gne249 % HbA1c 72610-2 8.8 % 07/29/2015 %Hba1C Yej738 Gluc Ave 206 mg/dL 07/29/2015 Cbc With [...] Ord2 RDW 14.9 % 07/29/2015 Comp Metabolic Fus054 NA 138 mEq/L 07/29/2015 Comp Metabolic Agn627 K 4.4 mEq/L 07/29/2015 Comp Metabolic Ikz814 CL 102 mEq/L 07/29/2015 Comp Metabolic Uvm434 CO2 28.0 mEq/L 07/29/2015 Comp Metabolic Mvn536 AN ION GAP 12 07/29/2015 Comp Metabolic Hul281 GL UCOSE 261 mg/dL 07/29/2015 Comp Metabolic Crq962 Cr eat 1.0 mg/dL 07/29/2015 Comp Metabolic Qjm373 eG FR 77 ml/min/1.73m2 07/29 Comp Metabolic Yoz716 BUN 13 mg/dL 07/29/2015 Comp Metabolic Tia791 B/ C Ratio 13.0 Ratio 07/29/2015 Comp Metabolic Glc848 CA LCIUM 9.1 mg/dL 07/29/2015 Comp Metabolic Eoy060 AL K PHOS 64 U/L 07/29/2015 Comp Metabolic Mrh020 T(SGOT) 20 U/L 07/29/2015 Comp Metabolic Zmh766 AL T(SGPT) 22 U/L 07/29/2015 Comp Metabolic Gyy464 BI LI T 0.4 mg/dL 07/29/2015 Comp Metabolic Xjn413 AL BUMIN 4.0 g/dL 07/29/2015 Comp Metabolic Sqo792 TP RO 6.1 g/dL 07/29/2015 Comp Metabolic Xjl606 GL OB 2.1 g/dL 07/29/2015 Comp Metabolic Mqf293 A/ G Ratio 1.9 Ratio 07/29/2015 Comp Metabolic Ryx868 Os mo 285 mOsmo 07/29/2015 Cbc With [...] Ord2 RDW 13.1 % 05/06/2015 Comp Metabolic Jhw402 NA 134 mEq/L 05/06/2015 Comp Metabolic Hlk902 K 4.4 mEq/L 05/06/2015 Comp Metabolic Had193 CL 98 mEq/L 05/06/2015 Comp Metabolic Qsh368 CO2 29.0 mEq/L 05/06/2015 Comp Metabolic Rgx569 AN ION GAP 11 05/06/2015 Comp Metabolic Fkg319 GL UCOSE 321 mg/dL 05/06/2015 Comp Metabolic Uvo644 Cr eat 1.0 mg/dL 05/06/2015 Comp Metabolic Pih648 eG FR 78 ml/min/1.73m2 05/06 Comp Metabolic Afc650 BUN 20 mg/dL 05/06/2015 Comp Metabolic Qdw451 B/ C Ratio 20.4 Ratio 05/06/2015 Comp Metabolic Sat697 CA LCIUM 9.5 mg/dL 05/06/2015 Comp Metabolic Dyp903 AL K PHOS 62 U/L 05/06/2015 Comp Metabolic Oro298 T(SGOT) 21 U/L 05/06/2015 Comp Metabolic Kvg219 AL T(SGPT) 37 U/L 05/06/2015 Comp Metabolic Nmz561 BI LI T 0.4 mg/dL 05/06/2015 Comp Metabolic Adn516 AL BUMIN 3.8 g/dL 05/06/2015 Comp Metabolic Quh787 TP RO 6.1 g/dL 05/06/2015 Comp Metabolic Qts783 GL OB 2.3 g/dL 05/06/2015 Comp Metabolic Vop864 A/ G Ratio 1.7 Ratio 05/06/2015 Comp Metabolic Soa015 Os mo 283 mOsmo 05/06/2015 Tsh Ord6 hTSH II 1.65 uIU/mL 02/18/2015 B12 Wim726 B12 605.00 pg/ml 02/18/2015 %Hba1C Obw845 % HbA1c 44691-4 8.3 % 02/18/2015 %Hba1C Ixc802 Gluc Ave 192 mg/dL 02/18/2015 Cbc With [...] Ord2 RDW 13.9 % 02/17/2015 Comp Metabolic Xpa214 NA 137 mEq/L 02/17/2015 Comp Metabolic Wef073 K 4.4 mEq/L 02/17/2015 Comp Metabolic Ssm522 CL 100 mEq/L 02/17/2015 Comp Metabolic Nah439 CO2 31.0 mEq/L 02/17/2015 Comp Metabolic Zym583 AN ION GAP 10 02/17/2015 Comp Metabolic Aib871 GL UCOSE 307 mg/dL 02/17/2015 Comp Metabolic Tnp771 Cr eat 1.0 mg/dL 02/17/2015 Comp Metabolic Njo174 eG FR 74 ml/min/1.73m2 02/17 Comp Metabolic Kfz830 BUN 22 mg/dL 02/17/2015 Comp Metabolic Vjc372 B/ C Ratio 21.4 Ratio 02/17/2015 Comp Metabolic Niz908 CA LCIUM 9.5 mg/dL 02/17/2015 Comp Metabolic Zkf687 AL K PHOS 78 U/L 02/17/2015 Comp Metabolic Cgy686 T(SGOT) 18 U/L 02/17/2015 Comp Metabolic Pyp256 AL T(SGPT) 32 U/L 02/17/2015 Comp Metabolic Ize224 BI LI T 0.5 mg/dL 02/17/2015 Comp Metabolic Qhz117 AL BUMIN 4.3 g/dL 02/17/2015 Comp Metabolic Yig558 TP RO 6.7 g/dL 02/17/2015 Comp Metabolic Cwu714 GL OB 2.4 g/dL 02/17/2015 Comp Metabolic Yfx432 A/ G Ratio 1.8 Ratio 02/17/2015 Comp Metabolic Ujh474 Os mo 289 mOsmo 02/17/2015 Review of [...] clear 10/02/2017 None Full Exam - General 1995 Ears/Nose/Throat otoscopic exam Overall: tympanic membranes clear 10/02/2017 None Full Exam - General 1994 Ears/Nose/Throat lips/teeth/gingiva Overall: benign lips 10/02/2017 None Full Exam - General 1995 [...] masses 04/25/2017 None Full Exam - General 1995 [...] inspection of skin Location: face 03/07/2015 on hinduism, cheeks,actinic keratosis with irritation on left cheek - left hinduism - croptherapy on these two lesions - [...] Procedure Codes Date THER/PROPH/DIAG INJ SC/IM CPT-4: 11596 12/17/2018 THER/PROPH/DIAG INJ SC/IM CPT-4: 15795 12/02/2018 THER/PROPH/DIAG INJ SC/IM CPT-4: 54130 11/18/2018 THER/PROPH/DIAG INJ SC/IM CPT-4: 90471 11/04/2018 THER/PROPH/DIAG INJ SC/IM CPT-4: 65563 10/14/2018 THER/PROPH/DIAG INJ SC/IM CPT-4: 53119 10/03/2018 THER/PROPH/DIAG INJ SC/IM CPT-4: 77308 09/23/2018 THER/PROPH/DIAG INJ SC/IM CPT-4: 09373 09/02/2018 THER/PROPH/DIAG INJ SC/IM CPT-4: 01958 08/21/2018 THER/PROPH/DIAG INJ SC/IM CPT-4: 71085 08/08/2018 THER/PROPH/DIAG INJ SC/IM CPT-4: 13510 07/28/2018 THER/PROPH/DIAG INJ SC/IM CPT-4: 39574 07/16/2018 THER/PROPH/DIAG INJ SC/IM CPT-4: 41350 07/02/2018 PPPS, SUBSEQ VISIT CPT- 4: G0439 06/30/2018 THER/PROPH/DIAG INJ SC/IM CPT-4: 04907 06/24/2018 THER/PROPH/DIAG INJ SC/IM CPT-4: 72223 06/13/2018 ADMIN INFLUENZA VIRU S VAC CPT-4: G0008 06/06/2018 FLU VACC PRSV FREE I NC ANTIG CPT-4: 41942 06/06/2018 THER/PROPH/DIAG INJ SC/IM CPT-4: 14388 06/05/2018 THER/PROPH/DIAG INJ SC/IM CPT-4: 05060 05/30/2018 THER/PROPH/DIAG INJ SC/IM CPT-4: 46667 05/22/2018 THER/PROPH/DIAG INJ SC/IM CPT-4: 41200 05/12/2018 THER/PROPH/DIAG INJ SC/IM CPT-4: 07988 05/02/2018 THER/PROPH/DIAG INJ SC/IM CPT-4: 94307 04/24/2018 THER/PROPH/DIAG INJ SC/IM CPT-4: 35375 04/17/2018 KETOROLAC TROMETHAMI NE INJ CPT-4: J1885 03/07/2018 URINALYSIS NONAUTO W /O SCOPE CPT-4: 28807 03/07/2018 THER/PROPH/DIAG INJ SC/IM CPT-4: 59205 02/20/2018 TRIAMCINOLONE ACET I [place] NOS CPT-4: J3301 01/30/2018 THER/PROPH/DIAG INJ SC/IM CPT-4: 75093 01/17/2018 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 3-[address]: 375166530 CPT-4: G0436 04/25/2017 ADMIN INFLUENZA VIRU S VAC CPT-4: G0008 04/25/2017 ADMIN PNEUMOCOCCAL V ACCINE SNOMED CT: 50922864 CPT-4: G0009 04/25/2017 PNEUMOCOCCAL VACC [address]: 43967103 CPT-4: 40763 04/25/2017 FLU VACC PRSV FREE I NC ANTIG CPT-4: 23752 04/25/2017 ADMIN INFLUENZA VIRU S VAC CPT-4: G0008 05/22/2016 FLU VACC 4 TELLY 3 YRS PLUS IM Formatting Model/CDA Sections, Assigned to/Angela Clemons SNOMED CT: 93392244 CPT-4: 39759Toqatyr 05/22/2016 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 3-[address]: 742462039 CPT-4: G0436 11/25/2015 URINALYSIS NONAUTO W /O SCOPE CPT-4: 98804 05/09/2015 TRIAMCINOLONE ACET I [place] NOS CPT-4: J3301 04/12/2015 DESTRUCT PREMALG LESION CPT-4: 22057 03/07/2015 DESTRUCT PREMALG LES 2-14 CPT-4: 99082 03/07/2015 REMOVE IMPACTED EAR WAX UNI CPT-4: 54719 12/31/2014 THER/PROPH/DIAG INJ SC/IM CPT-4: 26092 12/23/2014 TRIAMCINOLONE ACET I [place] NOS CPT-4: J3301 12/23/2014 Vital Signs Date Vital 12/02/2018 Blood Pressure 1: 140/70 Code: 8480-6 BMI: 21.9 Code: 31145-5 Heart Rate 1: 61 bpm Height: 5'11" SpO2: 94% Weight: 157 lbs 10/17/2018 Blood Pressure 1: 124/54 Code: 8480-6 BMI: 21.9 Code: 95224-6 Heart Rate 1: 64 bpm Height: 5'11" SpO2: 93% Weight: 157 lbs 09/02/2018 Blood Pressure 1: 140/80 Code: 8480-6 BMI: 21.2 Code: 18497-9 Heart Rate 1: 68 bpm Height: 5'11" SpO2: 97% Weight: 152 lbs 06/30/2018 BMI: 21.8 Code: 74832-1 Height: 5'11" Weight: 156 lbs 06/06/2018 Blood Pressure 1: 128/76 Code: 8480-6 BMI: 22.0 Code: 59821-0 Heart Rate 1: 81 bpm Height: 5'11" SpO2: 92% Weight: 158 lbs 04/04/2018 Blood Pressure 1: 124/70 Code: 8480-6 BMI: 20.8 Code: 02756-8 Heart Rate 1: 65 bpm Height: 5'11" SpO2: 95% Weight: 149 lbs 03/07/2018 Blood Pressure 1: 148/70 Code: 8480-6 BMI: 21.2 Code: 92135-9 Heart Rate 1: 66 bpm Height: 5'11" SpO2: 94% Weight: 152 lbs 02/20/2018 Blood Pressure 1: 134/58 Code: 8480-6 BMI: 20.5 Code: 45389-7 Heart Rate 1: 61 bpm Height: 5'11" SpO2: 92% Weight: 147 lbs 01/30/2018 Blood Pressure 1: 158/68 Code: 8480-6 BMI: 21.5 Code: 39606-2 Heart Rate 1: 71 bpm Height: 5'11" SpO2: 92% Weight: 154 lbs 01/14/2018 Blood Pressure 1: 156/70 Code: 8480-6 Height: Weight: 01/13/2018 Blood Pressure 1: 148/62 Code: 8480-6 BMI: 20.9 Code: 02648-3 Heart Rate 1: 54 bpm Height: 5'11" SpO2: 97% Weight: 150 lbs 11/19/2017 Blood Pressure 1: 150/60 Code: 8480-6 BMI: 21.8 Code: 79180-8 Heart Rate 1: 63 bpm Height: 5'11" SpO2: 98% Weight: 156 lbs 10/02/2017 Blood Pressure 1: 168/60 Code: 8480-6 BMI: 21.9 Code: 95197-9 Heart Rate 1: 52 bpm Height: 5'11" SpO2: 97% Weight: 157 lbs 07/23/2017 Blood Pressure 1: 170/70 Code: 8480-6 BMI: 21.8 Code: 95413-2 Heart Rate 1: 65 bpm Height: 5'11" SpO2: 98% Weight: 156 lbs 04/25/2017 Blood Pressure 1: 138/60 Code: 8480-6 BMI: 21.6 Code: 71670-0 Heart Rate 1: 55 bpm Height: 5'11" SpO2: 93% Weight: 155 lbs 02/19/2017 Blood Pressure 1: 138/64 Code: 8480-6 BMI: 21.3 Code: 88748-4 Heart Rate 1: 52 bpm Height: 5'11" SpO2: 96% Weight: 152 lbs 8 oz 01/21/2017 Blood Pressure 1: 160/68 Code: 8480-6 BMI: 21.3 Code: 63308-1 Heart Rate 1: 62 bpm Height: 5'11" SpO2: 96% Weight: 153 lbs 12/20/2016 Blood Pressure 1: 124/66 Code: 8480-6 BMI: 21.5 Code: 48739-2 Height: 5'11" Weight: 154 lbs 08/23/2016 Blood Pressure 1: 142/52 Code: 8480-6 BMI: 21.2 Code: 01214-8 Heart Rate 1: 54 bpm Height: 5'11" SpO2: 96% Weight: 152 lbs 05/22/2016 Blood Pressure 1: 130/76 Code: 8480-6 BMI: 21.5 Code: 00541-8 Heart Rate 1: 78 bpm Height: 5'11" SpO2: 92% Weight: 154 lbs 02/24/2016 Blood Pressure 1: 128/80 Code: 8480-6 BMI: 21.2 Code: 58212-7 Heart Rate 1: 74 bpm Height: 5'11" SpO2: 96% Weight: 152 lbs 01/27/2016 Blood Pressure 1: 144/60 Code: 8480-6 BMI: 21.2 Code: 88638-7 Heart Rate 1: 74 bpm Height: 5'11" SpO2: 97% Weight: 152 lbs 11/25/2015 Blood Pressure 1: 110/52 Code: 8480-6 BMI: 21.9 Code: 64361-0 Heart Rate 1: 65 bpm Height: 5'11" SpO2: 92% Weight: 157 lbs 07/28/2015 Blood Pressure 1: 138/62 Code: 8480-6 BMI: 21.8 Code: 57272-6 Heart Rate 1: 63 bpm Height: 5'11" SpO2: 91% Weight: 156 lbs 05/26/2015 Blood Pressure 1: 120/58 Code: 8480-6 BMI: 21.5 Code: 37124-0 Heart Rate 1: 99 bpm Height: 5'11" SpO2: 96% Weight: 154 lbs 05/06/2015 Blood Pressure 1: 120/58 Code: 8480-6 BMI: 21.2 Code: 74908-2 Heart Rate 1: 66 bpm Height: 5'11" SpO2: 96% Weight: 152 lbs 04/25/2015 Blood Pressure 1: 136/62 Code: 8480-6 BMI: 21.2 Code: 98823-0 Heart Rate 1: 63 bpm Height: 5'11" SpO2: 97% Weight: 152 lbs 04/12/2015 Blood Pressure 1: 160/58 Code: 8480-6 BMI: 21.6 Code: 05525-5 Heart Rate 1: 62 bpm Height: 5'11" Weight: 155 lbs 03/24/2015 Blood Pressure 1: 138/68 Code: 8480-6 BMI: 22.0 Code: 61024-8 Heart Rate 1: 65 bpm Height: 5'11" SpO2: 96% Weight: 158 lbs 03/07/2015 Blood Pressure 1: 116/52 Code: 8480-6 BMI: 22.2 Code: 64573-7 Heart Rate 1: 64 bpm Height: 5'11" SpO2: 97% Weight: 159 lbs 02/17/2015 Blood Pressure 1: 148/58 Code: 8480-6 BMI: 21.3 Code: 49670-0 Heart Rate 1: 63 bpm Height: 5'11" SpO2: 97% Weight: 153 lbs 12/31/2014 Blood Pressure 1: 100/60 Code: 8480-6 BMI: 21.8 Code: 19033-2 Heart Rate 1: 68 bpm Height: 5'11" Weight: 156 lbs 12/23/2014 Blood Pressure 1: 148/64 Code: 8480-6 BMI: 21.9 Code: 31441-5 Heart Rate 1: 64 bpm Height: 5'11" [...] Encounters Encounter Performer Loca tion Codes Date ([id number]) 62812 EST. 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 [facility] Diagnosis: Orthostatic hypotension[ICD10: I95.1] Diagnosis: Low back pain[ICD10: M54.5] Diagnosis: Unsteadiness on feet[ICD10: R26.81] Karmen Ash MD, [facility] CPT-4: 66797 10/17/2018 [id number]) 67359 EST. 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 P ATIENT, LEVEL IV Diagnosis: Cellulitis of face[ICD10: L03.211] Diagnosis: Type 2 diabetes mellitus without complications[ICD10: E11.9] Diagnosis: Essential (primary) hypertension[ICD10: I10] Diagnosis: Encounter for immunization[ICD10: Z23] Karmen Ash MD, [facility] CPT-4: 83470 06/06/2018 ([id number]) 33406 EST. 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 P ATIENT, LEVEL III Diagnosis: Low back pain[ICD10: M54.5] Diagnosis: Dysuria[ICD10: R30.0] Karmen Ash MD, [facility] CPT-4: 85069 03/07/2018 ([id number]) 53729 EST. 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 P ATIENT, LEVEL III Diagnosis: Chronic obstructive pulmonary disease with (acute) exacerbation[ICD10: J44.1] Karmen Ash MD, [facility] CPT-4: 96393 01/30/2018 92164 EST. PATIENT, LEVEL II Diagnosis: Insect bite (nonvenomous), left lower leg, initial encounter[ICD10: S80.862A] Karmen Ash MD, [facility] CPT-4: 62654 01/14/2018 ([id number]) 63246 EST. P ATIENT, LEVEL IV Diagnosis: Type 2 diabetes mellitus with hyperglycemia[ICD10: E11.65] Diagnosis: Chronic obstructive pulmonary disease, unspecified[ICD10: J44.9] Diagnosis: Other fatigue[ICD10: R53.83] Karmen Ash MD, [facility] CPT- 4: 78901 01/13/2018 ([id number]) 95859 EST. P ATIENT, LEVEL IV Diagnosis: Type 2 diabetes mellitus with hyperglycemia[ICD10: E11.65] Diagnosis: Vitamin D deficiency, unspecified[ICD10: E55.9] Diagnosis: Essential (primary) hypertension[ICD10: I10] Diagnosis: Abdominal distension (gaseous)[ICD10: R14.0] Diagnosis: Drug induced constipation[ICD10: K59.03] Karmen Ash MD, [facility] CPT-4: 60181 11/19/2017 75494 EST. PATIENT, LEVEL IV Diagnosis: Low back pain[ICD10: M54.5] Diagnosis: Chronic obstructive pulmonary disease, unspecified[ICD10: J44.9] Brunilda Ash MD, [facility] CPT-4: 14576 10/02/2017 ([id number]) 30166 EST. P ATIENT, LEVEL IV Diagnosis: Essential (primary) hypertension[ICD10: I10] Diagnosis: Type 2 diabetes mellitus with hyperglycemia[ICD10: E11.65] Diagnosis: Vitamin D deficiency, unspecified[ICD10: E55.9] Diagnosis: Mixed hyperlipidemia[ICD10: E78.2] Karmen Ash MD, [facility] CPT-4: 02762 07/23/2017 ([id number]) 98530 EST. P ATIENT, LEVEL IV Diagnosis: Essential (primary) hypertension[ICD10: I10] Diagnosis: Type 2 diabetes mellitus with hyperglycemia[ICD10: E11.65] Diagnosis: Chronic obstructive pulmonary disease, unspecified[ICD10: J44.9] Diagnosis: Nicotine dependence, unspecified, uncomplicated[ICD10: F17.200] Diagnosis: Encounter for immunization[ICD10: Z23] Karmen Ash MD, [facility] CPT-4: 69281 04/25/2017 ([id number]) 42925 EST. P ATIENT, LEVEL IV Diagnosis: Type 2 diabetes mellitus with hyperglycemia[ICD10: E11.65] Diagnosis: Essential (primary) hypertension[ICD10: I10] Diagnosis: Anemia, unspecified[ICD10: D64.9] Karmen sAh MD, [facility] CPT- 4: 78177 02/19/2017 ([id number]) 63548 EST. P ATIENT, LEVEL IV Diagnosis: Slow transit constipation[ICD10: K59.01] Diagnosis: Gastro-esophageal reflux disease without esophagitis[ICD10: K21.9] Diagnosis: Essential (primary) hypertension[ICD10: I10] Karmen Ash MD, [facility] CPT-4: 84038 01/21/2017 ([id number]) 34735 EST. P ATIENT, LEVEL IV Diagnosis: Type 2 diabetes mellitus with hyperglycemia[ICD10: E11.65] Diagnosis: Vitamin D deficiency, unspecified[ICD10: E55.9] Diagnosis: Essential (primary) hypertension[ICD10: I10] Diagnosis: Chronic obstructive pulmonary disease, unspecified[ICD10: J44.9] Karmen Ash MD, [facility] CPT-4: 28062 12/20/2016 ([id number]) 61908 EST. P ATIENT, LEVEL IV Diagnosis: Type 2 diabetes mellitus with hyperglycemia[ICD10: E11.65] Diagnosis: Essential (primary) hypertension[ICD10: I10] Diagnosis: Mixed hyperlipidemia[ICD10: E78.2] Diagnosis: Vitamin D deficiency, unspecified[ICD10: E55.9] Karmen Ash MD, [facility] CPT-4: 00684 08/23/2016 ([id number]) 09569 EST. P ATIENT, LEVEL IV Diagnosis: Type 2 diabetes mellitus with hyperglycemia[ICD10: E11.65] Diagnosis: Essential (primary) hypertension[ICD10: I10] Diagnosis: Chronic obstructive pulmonary disease, unspecified[ICD10: J44.9] Karmen Ash MD, [facility] CPT-4: 33138 05/22/2016 ([id number]) 07362 EST. P ATIENT, LEVEL III Diagnosis: Dysuria[ICD10: R30.0] Diagnosis: Essential (primary) hypertension[ICD10: I10] Karmen Ash MD, [facility] CPT-4: 07980 02/24/2016 ([id number]) 06127 EST. P ATIENT, LEVEL IV Diagnosis: Gastro-esophageal reflux disease without esophagitis[ICD10: K21.9] Diagnosis: Slow transit constipation[ICD10: K59.01] Diagnosis: Type 2 diabetes mellitus with hyperglycemia[ICD10: E11.65] Karmen Ash MD, [facility] CPT-4: 90154 01/27/2016 ([id number]) 26994 EST. P ATIENT, LEVEL IV Diagnosis: Essential (primary) hypertension[ICD10: I10] Diagnosis: Type 2 diabetes mellitus with hyperglycemia[ICD10: E11.65] Diagnosis: Vitamin D deficiency, unspecified[ICD10: E55.9] Diagnosis: Chronic obstructive pulmonary disease, unspecified[ICD10: J44.9] Diagnosis: Mixed hyperlipidemia[ICD10: E78.2] Diagnosis: Tobacco use[ICD10: Z72.0] Karmen Ash MD, [facility] CPT- 4: 16742 11/25/2015 ([id number]) 98147 EST. P ATIENT, LEVEL IV Diagnosis: Type 2 diabetes mellitus with hyperglycemia[ICD10: E11.65] Diagnosis: Essential (primary) hypertension[ICD10: I10] Diagnosis: Vitamin D deficiency, unspecified[ICD10: E55.9] Karmen Ash MD, [facility] CPT-4: 98507 07/28/2015 ([id number]) 06110 EST. P ATIENT, LEVEL III Diagnosis: Type 2 diabetes mellitus with hyperglycemia[ICD10: E11.65] Diagnosis: Essential (primary) hypertension[ICD10: I10] Violeta Ash MD, [facility] CPT-4: 81899 05/26/2015 ([id number]) 26664 EST. P ATIENT, LEVEL III Diagnosis: DIABETES TYPE II[ICD9: 250.00] Diagnosis: COPD (chronic obstructive pulmonary disease)[ICD9: 496] Diagnosis: ESSENTIAL HYPERTENSION[ICD9: 401.9] Diagnosis: Cough[ICD9: 786.2] Violeta Ash MD, [facility] CPT-4: 00287 05/06/2015 ([id number]) 80079 EST. P ATIENT, LEVEL III Diagnosis: COPD (chronic obstructive pulmonary disease)[ICD9: 496] Diagnosis: DIABETES TYPE II[ICD9: 250.00] Diagnosis: Muscle ache[ICD9: 729.1] Karmen Ash MD, [facility] CPT- 4: 76727 04/25/2015 ([id number]) 37537 EST. P ATIENT, LEVEL III Diagnosis: ACTINIC KERATOSIS[ICD9: 702.0] Diagnosis: COPD (chronic obstructive pulmonary disease)[ICD9: 496] Diagnosis: DIABETES TYPE II[ICD9: 250.00] Diagnosis: ACUTE URI[ICD9: 465.9] Violeta Ash MD, [facility] CPT-4: 63650 04/12/2015 ([id number]) 13610 EST. P ATIENT, LEVEL III Diagnosis: DIABETES TYPE II[ICD9: 250.00] Violeta Ash MD, [facility] CPT-4: 61751 03/24/2015 ([id number]) 56169 EST. P ATIENT, LEVEL IV Diagnosis: DIABETES TYPE II[ICD9: 250.00] Diagnosis: Hypoglycemia[ICD9: 251.2] Diagnosis: Skin texture changes[ICD9: 782.8] Violeta Ash MD, [facility] CPT-4: 31084 03/07/2015 ([id number]) 85305 EST. P ATIENT, LEVEL IV Diagnosis: COPD (chronic obstructive pulmonary disease)[ICD9: 496] Diagnosis: Fatigue[ICD9: 780.79] Diagnosis: Insulin dependent diabetes mellitus[ICD9: 250.00] Diagnosis: Unsteady gait[ICD9: 781.2] Maame Ash MD, [facility] CPT-4: 32211 02/17/2015 ([id number]) 24080 EST. P ATIENT, LEVEL IV Diagnosis: BPPV (benign paroxysmal positional vertigo)[ICD9: 386.11] Diagnosis: Impacted cerumen[ICD9: 380.4] Diagnosis: ESSENTIAL HYPERTENSION[ICD9: 401.9] Diagnosis: Insulin dependent diabetes mellitus[ICD9: 250.00] [facility] CPT-4: 59460 12/23/2014 ([id number]) OFFICE [facility] 4 Diagnosis: Insulin dependent diabetes mellitus[ICD9: 250.00] Diagnosis: BPPV (benign paroxysmal positional vertigo)[ICD9: 386.11] Diagnosis: COPD (chronic obstructive pulmonary disease)[ICD9: 496] Diagnosis: Tobacco abuse[ICD9: 305.1] Diagnosis: Osteoarthritis[ICD9: 715.90] [facility] CPT- 4: 12624 12/09/2014 Plan of Care Planned Activity Notes C odes Status Date Patient Education: Patient Medication Summary Completed 12/17/2018 [...] Karmen Espinal WPtel: [phone] (30 min) Complex 12/02/2018 Patient Education: Patient [...] walker 10/17/2018 Appointment: Karmen Espinal WPtel: [phone] [phone] (30 min) Complex 10/17/2018 Patient Education: Patient [...] medications. 09/02/2018 Appointment: Karmen Espinal WPtel: [phone] [phone] [place] (15 min) Moderate 09/02/2018 Patient Education: Patient [...] App[facility]ment: [phone] [phone] [facility] - Annual Wellness Visit 06/30/2018 [...] in pain. 06/06/2018 Appointment: [phone] [phone] (15 min) Moderate 06/06/2018 Patient [...] months 04/04/2018 Appointment: Karmen Espinal WPtel: [phone] [phone] [place] (15 min) Moderate 04/04/2018 Patient Education: Patient Medication Summary Completed 04/04/2018 Care Plan: Cbc With Differential Pending 04/04/2018 Care Plan: Testosterone repeat in 2 months Pending 04/04/2018 Appointment: Karmen Espinal WPtel: [phone] [phone] [place] (15 min) Moderate 03/25/2018 Visit Plan: Low back pain -history of kidney stone-UA negative today -increase fluids and call if pain does not resolve or if any worse. 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 01/30/2018 Appointment: Karmen Espinal WPtel: [phone] [phone] (15 min) Moderate 01/30/2018 Patient Education: Patient Medication Summary Completed 01/30/2018 Appointment: Karmen Espinal WPtel: [phone] [phone] (15 min) Moderate 01/28/2018 Appointment: [place] 01/17/2018 Patient Education: Patient Medication Summary Completed 01/17/2018 Visit Plan: Cellulitis - start oral antibiotics as directed, return to clinic as previously directed, call for acute change in symptoms, worsening redness, warmth, discharge. 01/14/2018 Appointment: Karmen Espinal WPtel: [address] [place] [address] (10 min) Simple 01/14/2018 Patient Education: Patient [...] less controlled. 01/13/2018 Appointment: Karmen Espinal WPtel: [address] [place] [address] (15 min) Moderate 01/13/2018 Patient Education: Patient Medication Summary Completed 01/13/2018 Referral: Hugo Villatoro HPtel:[phone] [place] [address] Patient's informed. Referral info ned monroy. Completed [...] change in blood pressure readings at home. Nvdudjsf-unevaf-ueovj to see Dr Villatoro Constipation-start linzess daily 11/19/2017 Appointment: [phone] [phone] [place] (30 min) Complex 11/19/2017 Patient Education: Patient Medication Summary Completed 11/19/2017 Care Plan: Referral Order bloating, nausea SNOMED-CT : 996007146 Pending 11/19/2017 Visit Plan: Low back pain- [...] Appointment: Brunilda Maravilla [facility]el[facility] [phone] [facility] [place] (15 min) Moderate 10/02/2017 Patient [...] [facility]el[facility] [phone] [phone] (30 min) [facility] 07/23/2017 Patient Education: Patient Medication Summary Completed 07/23/2017 Patient Education: Smoking and Tobacco Addiction Completed 07/23/2017 Patient Education: Hypertension Completed 07/23/2017 Visit Plan: Hypertension - well con purvixenaed - continue with current medications, continue with [...] readings are starting to become less controlled. Zqdrpv-sovgorh-pnjif labs 02/19/2017 Appointment: [facility]el[facility] [phone] [phone] (30 min) Complex 02/19/2017 Patient [...] 01/21/2017 Care Plan: Referral Order SNOMED-CT : [id number] Pending 01/21/2017 Visit Plan: Diabetes Mellitus - hav e recommended for the patient to have follow up labs prior to the next office visit. The patient has been instructed to continue with current medications as previously directed, angelica ontsusie with regular FSBS monitoring to assure [...] acute changes. 12/20/2016 Appointment: Karmen Espinal WPtel: [address] [place], [place] [phone] [place] [address] (30 min) Complex 12/20/2016 Patient Education: Patient Medication Summary Completed 12/20/2016 Patient Education: Smoking and Tobacco Addiction Completed 12/20/2016 Patient Education: Hypertension Completed 12/20/2016 Appointment: Karmen Espinal WPtel: [phone] (30 min) Complex 09/06/2016 Visit Plan: [...] level 08/23/2016 Appointment: Karmen Espinal WPtel: [phone] [phone] (30 min) Complex 08/23/2016 Patient Education: Patient [...] acute changes. 05/22/2016 Appointment: [facility]inal [facility]el[facility] [phone] [phone] (30 min) Complex 05/22/2016 Patient Education: Patient Medication Summary Completed 05/22/2016 Patient Education: Smoking and Tobacco Addiction Completed 05/22/2016 Care Plan: Cbc With Differential Ordered 05/22/2016 Care Plan: %Hba1C LOIN C : 34917-5 Ordered 05/22/2016 Care Plan: Tsh Ordered 05/22/2016 [...] Appointment: Karmen Espinal WPtel: [facility] [address] (30 min) Complex 02/24/2016 Patient Education: Patient [...] this regimen. 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 Izdzsrcq-oekmnxvi-OQHX SIMVASTATIN X 2 WEEKS AND CALL WITH [...] Care Plan: COMPLETE CBC AUTOMATED LOINC : 87439-6 Ordered 03/24/2015 Visit Plan: Diabetes Mellitus - [...] removal. 03/07/2015 Appointment: Violeta Ash WPtel: [address] [place] [phone] (15 min) Moderate 03/07/2015 Patient Education: Patient [...] Care Plan: COMPLETE CBC AUTOMATED LOINC : 25955-1 Ordered 12/23/2014 Visit Plan: BPPV - Benign [...] next appt 12/09/2014 Appointment: Karmen Espinal WPtel: [phone] [place], [place] [phone] [place] ([place]) New Patient 12/09/2014 Patient Education: Patient Medication Summary Completed 12/09/2014 Patient Education: .Amazing charts Parox ysmal positional vertigo Completed 12/09/2014 Patient Education: Smoking and Tobacco Addiction Completed 12/09/2014 Referral: Hugo Villatoro HPtel:[phone] [place] Referral Appointment Requested Referral: Luis [...] in symptoms, worsening redness, warmth, discharge. . Cerumen Impaction - The impacted cerumen [...] keeping patient stabilized during the removal process. . Hypertension - wel l controlled - [...] readings are starting to become less controlled. Wsmjvr-msamxet-dbvqj labs . COPD -recent pneum onia-symptoms have [...] as discussed-follow up in 1 month . Orthostatic hypote nsion -recommend patient pump legs before standing -change positions slowly- monitor blood pressures Chronic Pain Syndrome - pt has chronic pain - has been maintained on current medications, has not sought out other medications, only uses PRN pain medications as directed, and understands the consequences of over-medication. Gait instability-recommend patient use a walker BRING BLOOD SUGAR LO G TO NEXT [...] patient is stable, monitor for acute changes. RESTART SIMVASTATIN START TOUJEO AT 30 UNITS [...] change in blood pressure readings at home. decrease glipizide t o 5mg twice daily [...] - referral to Dr. Donohue for removal. Symbicort 2 puffs tw ice daily . [...] to assure normal liver response to medications. CHECK UA TORADOL INCREASE PO FLUIDS STRETCHES [...] change in blood pressure readings at home. Pkwbukfr-aclsue-ikfnu to see Dr Villatoro Constipation-start linzess daily [...] POTENTIAL SIDE EFFECTS AND WORSENING OF SYMPTOMS. Aeaodhvf-ucqnoxan-VRMS SIMVASTATIN X 2 WEEKS AND CALL WITH [...]
--- OUTSIDE RECORDS SUMMARY | 2020-03-29 08:20 | XMS REPORT | CCD ---
Author Author Dick Espinal Organization Violeta Ash MD, [facility] Address [address] [place] [address] Phone Care Team Providers Care Wharfmaster Name Role Phone PP Unavailable CCM Unavailable Summary Purpose Interface Exchange Insurance Providers Payer name Policy type / Coverage type Covered libertarian ID Effective Begin Date Effective End Date WPS Medicare Part B Medicare Part B [id number] Unknown Unknown [employer] Medicar e Part B [id number] Unknown Unkn own Family history Father Diagnosis Age At Onset Cancer Unknown Mother Diagnosis Age At Onset Cancer Unknown Social History Social History Element Codes Description Effective Dates Marital status Unknown M arried 12/09/2014 Employment Unknown Retir ed 12/09/[address]: 35664818 Currently smokes tobacco 12/09/2014 Number of years using tobacco Unknown > 50 12/09/2014 Number of cigarettes/day Unknown 30 (Pack and a half) 12/09/[address]: 421449241 Never drinks alcohol 12/09/2014 Allergies, Adverse Reactions, Alerts Substance Reaction Codes Entered Date Inactivated Date Status * OTHER REACTION - S EE ANSWER BOX ceftin- c-dif Unknown No Inactive Date Active * NO KNOWN FOOD TAYLOR RGIES Unknown 12/09/2014 No Inactive Date Active Past Medical History Illness Codes Condition Status Onset Date Resolved Date Chronic obstructive pulmonary disease, unspecified ICD-9: 496 ICD-10: J44.9 Active 05/21/2016 Unknown Essential (primary) hypertension ICD-9: 401.9 ICD-10: I10 Active 08/22/2016 Unknown Other insomnia ICD-9: 327.09 ICD-10: G47.09 Active 12/02/2018 Unknown Testicular dysfuncti on, unspecified ICD-9: 257.9 ICD-10: E29.9 Active 01/17/2018 Unknown Type 2 diabetes kadi itus with [...] Condition Codes Effectiv e Dates Condition Status Chronic obstructive pulmonary disease, unspecified ICD-9: 496 ICD-10: J44.9 05/21/2016 Active Essential (primary) hypertension ICD-9: 401.9 ICD-10: I10 08/22/2016 Active Other insomnia ICD-9: 327.09 ICD-10: G47.09 12/02/2018 Active Testicular dysfuncti on, unspecified ICD-9: 257.9 [...] 5 mg-linh taminophen 325 mg tablet RxNorm: 275920 1 Tablet(s) PO Q6-8H as needed 12/15/2018 01/08/2019 Active testosterone cypiona te 200 mg/mL intramuscular oil RxNorm: 7573323 Milliliter(s) IM 12/02/2018 12/02/2018 In active testosterone cypiona te 200 mg/mL intramuscular oil RxNorm: 5889416 Milliliter(s) IM 11/18/2018 11/18/2018 In active hydrocodone 5 mg-linh taminophen 325 mg tablet RxNorm: 961354 1 Tablet(s) PO Q6-8H as needed 11/13/2018 12/07/2018 Inactive testosterone cypiona te 200 mg/mL intramuscular oil RxNorm: 1407810 1/2 Milliliter(s) IM A1ognim 11/04/2018 03/03/2019 Active testosterone cypiona te 200 mg/mL intramuscular oil RxNorm: 7909233 Milliliter(s) IM 11/04/2018 11/04/2018 In active nicotine 21 mg/24 hr daily transdermal patch RxNorm: 623131 1 TD daily 10/31/2018 10/30/2018 In active nicotine 21 mg/24 hr daily transdermal patch RxNorm: 830119 1 TD daily 10/31/2018 11/29/2018 In active meclizine 25 mg tablet RxNorm: 306424 1 Tablet(s) PO Q6 PRN TAKE ONE TABLET BY MOUTH EVERY 6 HOURS NEEDED 10/17/2018 01/14/2019 Active hydrocodone 5 mg-linh taminophen 325 mg tablet RxNorm: 198795 1 Tablet(s) PO Q6-8H as needed 10/17/2018 11/10/2018 Inactive metformin 500 mg tablet RxNorm: 222150 Tablet(s) TAKE 1 TABLET BY MOUTH DAILY 10/15/2018 10/09/2019 Ac tive lisinopril 10 mg tablet RxNorm: 813744 TAKE 1 TABLET BY MOUTH TWO TIMES DAILY 10/15/2018 10/09/2019 Ac tive - First Attempt Ref: [id number] testosterone cypiona te 200 mg/mL intramuscular oil RxNorm: 8394575 Milliliter(s) IM 10/14/2018 10/14/2018 In active Xanax 0.5 mg tablet RxNorm: 020696 1 Tablet(s) PO TID 10/03/2018 11/30/2018 Inactive testosterone cypiona te 200 mg/mL intramuscular oil RxNorm: 0517271 1/2 Milliliter(s) IM weekly 10/03/2018 11/03/2018 Inactive testosterone cypiona te 200 mg/mL intramuscular oil RxNorm: 7475550 Milliliter(s) IM 10/03/2018 10/03/2018 In active testosterone cypiona te 200 mg/mL intramuscular oil RxNorm: 4394403 Milliliter(s) IM 09/23/2018 09/23/2018 In active hydrocodone 5 mg-linh taminophen 325 mg tablet RxNorm: 760745 1 Tablet(s) PO Q6-8H as needed 09/22/2018 10/16/2018 Inactive testosterone cypiona te 200 mg/mL intramuscular oil RxNorm: 2689020 1/2 Milliliter(s) IM 09/02/2018 09/02/2018 Inactive testosterone enantha te 200 mg/mL intramuscular oil RxNorm: 858434 Milliliter(s) IM 08/21/2018 08/21/2018 In active hydrocodone 5 mg-linh taminophen 325 mg tablet RxNorm: 307187 1 Tablet(s) PO Q6-8H as needed 08/21/2018 09/14/2018 Inactive testosterone cypiona te 200 mg/mL intramuscular oil RxNorm: 9616246 Milliliter(s) IM 08/08/2018 08/08/2018 In active testosterone cypiona te 200 mg/mL intramuscular oil RxNorm: 6948804 1/2 Milliliter(s) IM 07/28/2018 07/28/2018 Inactive hydrocodone 5 mg-linh taminophen 325 mg tablet RxNorm: 444477 1 Tablet(s) PO Q6-8H as needed 07/21/2018 08/14/2018 Inactive testosterone cypiona te 200 mg/mL intramuscular oil RxNorm: 220416 Milliliter(s) IM 07/16/2018 07/16/2018 In active testosterone cypiona te 200 mg/mL intramuscular oil RxNorm: 151401 Milliliter(s) IM 07/02/2018 07/02/2018 In active Xanax 0.5 mg tablet RxNorm: 145509 1 Tablet(s) PO TID 06/27/2018 08/24/2018 Inactive testosterone cypiona te 200 mg/mL intramuscular oil RxNorm: 128835 Milliliter(s) IM 06/24/2018 06/24/2018 In active hydrocodone 5 mg-linh taminophen 325 mg tablet RxNorm: 097080 1 Tablet(s) PO Q6-8H as needed 06/23/2018 07/17/2018 Inactive testosterone cypiona te 200 mg/mL intramuscular oil RxNorm: 710192 Milliliter(s) IM 06/13/2018 06/13/2018 In active testosterone cypiona te 200 mg/mL intramuscular oil RxNorm: 895778 Milliliter(s) IM 06/05/2018 06/05/2018 In active testosterone cypiona te 200 mg/mL intramuscular oil RxNorm: 6867257 1/2 Milliliter(s) IM weekly 05/30/2018 09/26/2018 Inactive testosterone cypiona te 200 mg/mL intramuscular oil RxNorm: 800910 Milliliter(s) IM 05/30/2018 05/30/2018 In active testosterone cypiona te 200 mg/mL intramuscular oil RxNorm: 222117 Milliliter(s) IM 05/22/2018 05/22/2018 In active hydrocodone 5 mg-linh taminophen 325 mg tablet RxNorm: 418150 1 Tablet(s) PO Q6-8H as needed 05/20/2018 06/13/2018 Inactive testosterone cypiona te 200 mg/mL intramuscular oil RxNorm: 092957 1/2 Milliliter(s) IM 05/12/2018 05/12/2018 Inactive testosterone cypiona te 200 mg/mL intramuscular oil RxNorm: 284387 Milliliter(s) IM 05/02/2018 05/02/2018 In active testosterone cypiona te 200 mg/mL intramuscular oil RxNorm: 354680 1/2 Milliliter(s) IM weekly 04/24/2018 05/29/2018 Inactive testosterone cypiona te 200 mg/mL intramuscular oil RxNorm: 089421 0.5 Milliliter(s) IM 04/24/2018 04/24/2018 Inactive hydrocodone 5 mg-linh taminophen 325 mg tablet RxNorm: 283168 1 Tablet(s) PO Q6-8H as needed 04/22/2018 05/16/2018 Inactive testosterone cypiona te 200 mg/mL intramuscular oil RxNorm: 076807 1/2 Milliliter(s) IM 04/17/2018 04/17/2018 Inactive testosterone cypiona te 200 mg/mL intramuscular oil RxNorm: 071433 1/2 Milliliter(s) IM weekly 04/16/2018 04/23/2018 Inactive Jardiance 10 mg tablet RxNorm: 2005727 1 Tablet(s) PO daily 04/04/2018 12/29/2018 Active Protonix 40 mg table t,delayed release RxNorm: 603978 1 Tablet(s) PO daily TAKE 1 TABLET BY MOUTH DAILY 04/04/2018 03/29/2019 Active - Ref: [id number] testosterone cypiona te 200 mg/mL intramuscular oil RxNorm: 575487 1 Milliliter(s) IM monthly 04/04/2018 04/15/2018 Inactive hydrocodone 5 mg-linh taminophen 325 mg tablet RxNorm: 228373 1 Tablet(s) PO Q6-8H as needed 03/19/2018 04/12/2018 Inactive Flomax 0.4 mg capsule RxNorm: 111484 1 Capsule(s) PO daily 03/10/2018 03/04/2019 Active Urecholine 25 mg tablet RxNorm: 355258 1 Tablet(s) PO BID 03/10/2018 07/07/2018 Inactive ketorolac 60 mg/2 mL intramuscular solution RxNorm: 8234059 Milliliter(s) IM 03/07/2018 03/07/2018 In active metformin 500 mg tablet RxNorm: 344830 Tablet(s) TAKE 1 TABLET BY MOUTH DAILY 02/20/2018 02/13/2019 Ac tive 1 q am and 1/2 tab q pm hydrocodone 5 mg-linh taminophen 325 mg tablet RxNorm: 594737 1 Tablet(s) PO Q6-8H as needed 02/20/2018 03/16/2018 Inactive Kenalog 40 mg/mL bartolome pension for injection RxNorm: 2887292 1.5 Milliliter(s) In j 01/30/2018 01/30/2018 In active hydrocodone 5 mg-linh taminophen 325 mg tablet RxNorm: 859838 1 Tablet(s) PO Q6-8H as needed 01/23/2018 02/16/2018 Inactive Urecholine 25 mg tablet RxNorm: 021395 1 Tablet(s) PO BID 01/22/2018 03/09/2018 Inactive Flomax 0.4 mg capsule RxNorm: 415502 1 Capsule(s) PO daily 01/22/2018 03/09/2018 Inactive Flomax 0.4 mg capsule RxNorm: 578871 1 Capsule(s) PO daily 01/22/2018 01/21/2018 Inactive Urecholine 25 mg tablet RxNorm: 861961 1 Tablet(s) PO BID 01/22/2018 01/21/2018 Inactive testosterone cypiona te 200 mg/mL intramuscular oil RxNorm: 426044 Milliliter(s) IM 01/17/2018 01/17/2018 In active testosterone cypiona te 200 mg/mL intramuscular oil RxNorm: 059602 1 Milliliter(s) IM monthly 01/17/2018 04/03/2018 Inactive doxycycline hyclate 100 mg tablet RxNorm: 354997 1 Tablet(s) PO BID 01/14/2018 01/23/2018 Inactive lisinopril 10 mg tablet RxNorm: 876862 TAKE 1 TABLET BY MOUTH TWO TIMES DAILY 01/14/2018 10/14/2018 In active - First Attempt Ref: [id number] Xanax 0.5 mg tablet RxNorm: 676598 1 Tablet(s) PO TID 01/08/2018 04/06/2018 Inactive nystatin 100,000 uni t/mL oral suspension RxNorm: 440929 4 Milliliter(s) PO QI D Swish and swallow 01/08/2018 01/07/2018 Inactive nystatin 100,000 uni t/mL oral suspension RxNorm: 790352 4 Milliliter(s) PO QI D Swish and swallow 01/08/2018 01/12/2018 Inactive simvastatin 40 mg ta blet RxNorm: 024478 TAKE 1 TABLET BY MOUT H DAILY AT BEDTIME 12/30/2017 12/24/2018 Ac tive - First Attempt Ref: [id number] metformin 500 mg tablet RxNorm: 301250 TAKE 1 TABLET BY MOUTH DAILY 12/30/2017 02/19/2018 Inactive - First Attempt Ref: [id number] hydrocodone 5 mg-linh taminophen 325 mg tablet RxNorm: 177920 1 Tablet(s) PO Q6-8H as needed 12/25/2017 01/18/2018 Inactive Protonix 40 mg table t,delayed release RxNorm: 735910 Tablet(s) TAKE 1 TABL ET BY MOUTH DAILY 11/20/2017 04/03/2018 Inactive - Ref: [id number] Linzess 72 mcg capsule RxNorm: 8638431 1 Capsule(s) PO daily 11/19/2017 No Stop Date Active hydrocodone 5 mg-linh taminophen 325 mg tablet RxNorm: 458414 1 Tablet(s) PO Q6-8H as needed 11/19/2017 12/13/2017 Inactive hydrocodone 5 mg-linh taminophen 325 mg tablet RxNorm: 696164 1 Tablet(s) PO Q6-8H as needed 10/28/2017 11/18/2017 Inactive Xanax 0.5 mg tablet RxNorm: 694847 1 Tablet(s) PO TID 10/25/2017 12/22/2017 Inactive Xanax 0.5 mg tablet RxNorm: 171737 TAKE ONE TABLET BY MOUTH THREE TIMES A D AY 10/24/2017 12/01/2018 In active hydrocodone 5 mg-linh taminophen 325 mg tablet RxNorm: 187722 1 Tablet(s) PO Q6-8H as needed 09/30/2017 10/24/2017 Inactive Protonix 40 mg table t,delayed release RxNorm: 492991 TAKE 1 TABLET BY MOUT H DAILY 09/16/2017 11/19/2017 In active - Ref: [id number] Yovana SolLisy 300 unit/mL (1.5 mL) subcutaneous insulin pen RxNorm: 6153883 35 Unit(s) SQ QHS 08/30/2017 No Stop Date Active dosage increase hydrocodone 5 mg-linh taminophen 325 mg tablet RxNorm: 388956 1 Tablet(s) PO Q6-8H as needed 08/28/2017 09/29/2017 Inactive hydrocodone 5 mg-linh taminophen 325 mg tablet RxNorm: 377863 1 Tablet(s) PO Q6-8H as needed 07/23/2017 08/24/2017 Inactive lisinopril 10 mg tablet RxNorm: 025099 1 Tablet(s) PO BID Take 1 tablet by mout h daily 07/23/2017 01/13/2018 Inactive hydrocodone 5 mg-linh taminophen 325 mg tablet RxNorm: 804825 1 Tablet(s) PO Q6-8H as needed 06/27/2017 07/22/2017 Inactive Xanax 0.5 mg tablet RxNorm: 053218 1 Tablet(s) PO TID 06/18/2017 10/25/2017 Inactive hydrocodone 5 mg-linh taminophen 325 mg tablet RxNorm: 084388 1 Tablet(s) PO Q6-8H as needed 05/27/2017 06/26/2017 Inactive Levaquin 500 mg tablet RxNorm: 534050 1 Tablet(s) PO daily 05/24/2017 05/23/2017 Inactive Levaquin 500 mg tablet RxNorm: 888241 1 Tablet(s) PO daily 05/24/2017 05/30/2017 Inactive Protonix 40 mg table t,delayed release RxNorm: 187220 Take 1 tablet by mout h daily 04/29/2017 09/15/2017 In active - Ref: [id number] hydrocodone 5 mg-linh taminophen 325 mg tablet RxNorm: 881534 1 Tablet(s) PO Q6-8H as needed 04/25/2017 05/26/2017 Inactive metformin 500 mg tablet RxNorm: 875153 Take 1 tablet by mouth daily 04/08/2017 12/29/2017 Inactive - First Attempt Ref: [id number] hydrocodone 5 mg-linh taminophen 325 mg tablet RxNorm: 337132 1 Tablet(s) PO Q6-8H as needed 03/27/2017 04/24/2017 Inactive hydrocodone 5 mg-linh taminophen 325 mg tablet RxNorm: 456794 1 Tablet(s) PO Q6-8H as needed 02/25/2017 03/26/2017 Inactive Protonix 40 mg table t,delayed release RxNorm: 611894 Tablet(s) Take 1 tabl et by mouth BID 02/25/2017 04/28/2017 Inactive Protonix 40 mg table t,delayed release RxNorm: 120028 Tablet(s) Take 1 tabl et by mouth BID 02/19/2017 02/18/2017 Inactive Protonix 40 mg table t,delayed release RxNorm: 159093 Tablet(s) Take 1 tabl et by mouth BID 02/19/2017 02/24/2017 Inactive lisinopril 10 mg tablet RxNorm: 388327 Take 1 tablet by mouth daily 01/29/2017 07/22/2017 Inactive - First Attempt Ref: [id number] hydrocodone 5 mg-linh taminophen 325 mg tablet RxNorm: 603495 1 Tablet(s) PO Q6-8H as needed 01/25/2017 02/24/2017 Inactive simvastatin 40 mg ta blet RxNorm: 032226 Tablet(s) Take 1 tabl et by mouth daily at bedtime 01/03/2017 12/28/2017 Inactive lisinopril 10 mg tablet RxNorm: 696687 Tablet(s) Take 1 tablet by mouth daily 01/03/2017 01/28/2017 In active Protonix 40 mg table t,delayed release RxNorm: 996003 Tablet(s) Take 1 tabl et by mouth daily 12/28/2016 02/18/2017 Inactive hydrocodone 5 mg-linh taminophen 325 mg tablet RxNorm: 012147 1 Tablet(s) PO Q6-8H as needed 12/26/2016 01/24/2017 Inactive Xanax 0.5 mg tablet RxNorm: 392057 1 Tablet(s) PO TID 12/12/2016 03/11/2017 Inactive simvastatin 40 mg ta blet RxNorm: 798188 Tablet(s) Take 1 tabl et by mouth daily at bedtime 11/30/2016 01/02/2017 Inactive simvastatin 40 mg ta blet RxNorm: 673882 Take 1 tablet by mout h daily at bedtime 11/29/2016 11/29/2016 In active - First Attempt Ref: [id number] Protonix 40 mg table t,delayed release RxNorm: 418383 Take 1 tablet by mout h daily 11/27/2016 12/27/2016 In active - First Attempt Ref: [id number] hydrocodone 5 mg-linh taminophen 325 mg tablet RxNorm: 078366 1 Tablet(s) PO Q6-8H as needed 11/26/2016 12/25/2016 Inactive hydrocodone 5 mg-linh taminophen 325 mg tablet RxNorm: 734850 1 Tablet(s) PO Q8 as needed 10/24/2016 11/25/2016 Inactive Xanax 0.5 mg tablet RxNorm: 005941 1 Tablet(s) PO TID 10/09/2016 12/25/2016 Inactive hydrocodone 5 mg-linh taminophen 325 mg tablet RxNorm: 948390 1 Tablet(s) PO Q8 as needed 09/27/2016 10/23/2016 Inactive lisinopril 10 mg tablet RxNorm: 623119 Take 1 tablet by mouth daily 09/25/2016 01/02/2017 Inactive - First Attempt Ref: [id number] Vitamin D2 50,000 un it capsule RxNorm: 316672 1 Capsule(s) PO QW 09/06/2016 12/01/2018 Inactive hydrocodone 5 mg-linh taminophen 325 mg tablet RxNorm: 609952 1 Tablet(s) PO Q8 as needed 08/28/2016 09/26/2016 Inactive Toujeo SoloStar 300 unit/mL (1.5 mL) subcutaneous insulin pen RxNorm: 3663487 25 Unit(s) SQ QHS 08/23/2016 08/29/2017 Inactive dosage increase hydrocodone 5 mg-linh taminophen 325 mg tablet RxNorm: 940222 1 Tablet(s) PO Q8 as needed 07/26/2016 08/27/2016 Inactive Protonix 40 mg table t,delayed release RxNorm: 346064 Take 1 tablet by mout h daily 07/24/2016 11/26/2016 In active - First Attempt Ref: [id number] hydrocodone 5 mg-linh taminophen 325 mg tablet RxNorm: 020963 1 Tablet(s) PO Q8 as needed 06/19/2016 07/21/2016 Inactive Toujeo SoloStar 300 unit/mL (1.5 mL) subcutaneous insulin pen RxNorm: 1304970 32 Unit(s) SQ QHS 05/30/2016 08/22/2016 Inactive dosage increase hydrocodone 5 mg-linh taminophen 325 mg tablet RxNorm: 990291 1 Tablet(s) PO Q8 as needed 05/22/2016 06/18/2016 Inactive hydrocodone 5 mg-linh taminophen 325 mg tablet RxNorm: 286216 1 Tablet(s) PO Q8 as needed 04/18/2016 05/17/2016 Inactive Protonix 40 mg table t,delayed release RxNorm: 485019 Take 1 tablet by mout h daily 04/05/2016 07/03/2016 In active - Ref: [id number] metformin 500 mg tablet RxNorm: 555441 Take 1 tablet by mouth daily 04/04/2016 07/02/2016 Inactive - Ref: [id number] Xanax 0.5 mg tablet RxNorm: 550812 1 Tablet(s) PO TID 03/30/2016 09/25/2016 Inactive Xanax 0.5 mg tablet RxNorm: 677690 1 Tablet(s) PO TID 03/23/2016 12/25/2016 Inactive hydrocodone 5 mg-linh taminophen 325 mg tablet RxNorm: 791287 1 Tablet(s) PO Q8 as needed 03/06/2016 04/04/2016 Inactive Cipro 500 mg tablet RxNorm: 334474 1 Tablet(s) PO BID 02/24/2016 03/04/2016 Inactive Miralax 17 gram oral powder packet RxNorm: 955075 1 packet PO every oth er day 01/27/2016 No Stop Date Active hydrocodone 5 mg-linh taminophen 325 mg tablet RxNorm: 985217 1 Tablet(s) PO Q8 as needed 01/27/2016 02/25/2016 Inactive lisinopril 10 mg tablet RxNorm: 922480 1 Tablet(s) PO daily 01/12/2016 09/24/2016 Inactive simvastatin 40 mg ta blet RxNorm: 593076 1 Tablet(s) PO QHS 01/12/2016 11/28/2016 Inactive simvastatin 40 mg ta blet RxNorm: 038861 1 Tablet(s) PO QHS 01/11/2016 01/11/2016 Inactive lisinopril 10 mg tablet RxNorm: 512025 1 Tablet(s) PO daily 01/06/2016 01/11/2016 Inactive simvastatin 40 mg ta blet RxNorm: 260626 1 Tablet(s) PO daily 12/28/2015 01/10/2016 Inactive hydrocodone 5 mg-linh taminophen 325 mg tablet RxNorm: 618696 1 Tablet(s) PO Q8 as needed 12/27/2015 01/26/2016 Inactive Xanax 0.5 mg tablet RxNorm: 983472 1 Tablet(s) PO TID 11/30/2015 03/29/2016 Inactive Toujeo SoloStar 300 unit/mL (1.5 mL) subcutaneous insulin pen RxNorm: 7845206 30 Unit(s) SQ QHS 11/25/2015 05/29/2016 Inactive dosage increase meclizine 25 mg tablet RxNorm: 594872 1 Tablet(s) PO Q6 PRN TAKE ONE TABLET BY MOUTH EVERY 6 HOURS NEEDED 11/25/2015 02/22/2016 Inactive omeprazole 20 mg cap jacquelyn,delayed release RxNorm: 898455 1 Capsule(s) PO daily 10/06/2015 01/26/2016 In active Toujeo SoloStar 300 unit/mL (1.5 mL) subcutaneous insulin pen RxNorm: 4281759 35 Unit(s) SQ QHS 08/02/2015 11/24/2015 Inactive dosage increase Vitamin D2 50,000 un it capsule RxNorm: 266235 1 Capsule(s) PO QW 08/02/2015 09/05/2016 Inactive hydrocodone 5 mg-linh taminophen 325 mg tablet RxNorm: 639647 1 Tablet(s) PO Q8 as needed 07/11/2015 12/26/2015 Inactive Xanax 0.5 mg tablet RxNorm: 328609 1 Tablet(s) PO TID 06/30/2015 06/29/2015 Inactive Xanax 0.5 mg tablet RxNorm: 106171 1 Tablet(s) PO TID 06/30/2015 12/25/2015 Inactive hydrocodone 5 mg-linh taminophen 325 mg tablet RxNorm: 078028 1 Tablet(s) PO Q8 as needed 05/06/2015 07/10/2015 Inactive Symbicort 160 mcg-4. 5 mcg/actuation HFA aerosol inhaler RxNorm: 5495406 INH 04/25/2015 No Stop Date Active Levemir FlexTouch 10 0 unit/mL (3 mL) subcutaneous insulin pen RxNorm: 930943 30 Unit(s) SQ QHS 04/25/2015 11/24/2015 Inactive prednisone 20 mg tablet RxNorm: 389740 1 Tablet(s) PO BID 04/25/2015 04/29/2015 Inactive metformin 500 mg tablet RxNorm: 180869 1 Tablet(s) PO daily 04/25/2015 04/03/2016 Inactive amoxicillin 500 mg c apsule RxNorm: 424607 1 Capsule(s) PO TID 04/14/2015 04/13/2015 Inactive amoxicillin 500 mg c apsule RxNorm: 829491 1 Capsule(s) PO TID a nd recommend probiotic tid (otc) 04/14/2015 04/20/2015 Inactive Kenalog 40 mg/mL bartolome pension for injection RxNorm: 9012235 Milliliter(s) Inj 04/12/2015 04/12/2015 In active hydrocodone 5 mg-linh taminophen 325 mg tablet RxNorm: 367583 1 Tablet(s) PO Q8 as needed 03/30/2015 05/05/2015 Inactive Lantus 100 unit/mL s ubcutaneous solution RxNorm: 955732 25 Unit(s) SQ QPM 03/24/2015 04/25/2015 In active meclizine 25 mg tablet RxNorm: 039319 Tablet(s) TAKE ONE TABLET BY MOUTH EVERY 6 HOURS NEEDED 03/08/2015 04/06/2015 Inactive meclizine 25 mg tablet RxNorm: 737927 TAKE ONE TABLET BY MOUTH EVERY 6 HOURS A S NEEDED 02/25/2015 03/03/2015 Inactive Lantus 100 unit/mL s ubcutaneous solution RxNorm: 730349 20 Unit(s) SQ QPM 02/23/2015 03/23/2015 In active Lantus 100 unit/mL s ubcutaneous solution RxNorm: 923017 25 Unit(s) SQ QPM 02/23/2015 02/22/2015 In active hydrocodone 5 mg-linh taminophen 325 mg tablet RxNorm: 691930 1 Tablet(s) PO Q8 as needed 02/17/2015 03/29/2015 Inactive Xanax 0.5 mg tablet RxNorm: 725250 1 Tablet(s) PO TID 02/03/2015 06/29/2015 Inactive Lantus 100 unit/mL s ubcutaneous solution RxNorm: 041161 20 Unit(s) SQ QPM 12/29/2014 02/22/2015 In active Phenergan 12.5 mg re ctal suppository RxNorm: 182722 1 Suppository RTL Q6 PRN 12/23/2014 No Stop Date Active nausea Kenalog 40 mg/mL bartolome pension for injection RxNorm: 4301828 Milliliter(s) Inj 12/23/2014 12/23/2014 In active prednisone 20 mg tablet RxNorm: 860593 2 Tablet(s) PO daily 12/13/2014 12/17/2014 Inactive prednisone 20 mg tablet RxNorm: 827459 2 Tablet(s) PO daily 12/13/2014 12/12/2014 Inactive meclizine 25 mg tablet RxNorm: 433329 1 Tablet(s) PO Q6 PRN 12/09/2014 02/24/2015 Inactive hydrocodone 5 mg-linh taminophen 325 mg tablet RxNorm: 157833 1 Tablet(s) PO Q8 as needed 12/09/2014 02/16/2015 Inactive Vitamin B-12 1,000 m cg/mL oral drops RxNorm: 5035628 1 Milliliter(s) PO d aily No Start Date Active Alphagan P 0.1 % eye drops RxNorm: 740805 1 Drop(s) OPH BID No Start Date Active aspirin 325 mg table t,delayed release RxNorm: 951412 1 Tablet(s) PO daily No Start Date Active Tricor 145 mg tablet RxNorm: 192108 1 Tablet(s) PO daily No Start Date Active vitamin [id number] B1 oral liquid RxNorm: 1,000 Microgram(s) PO daily No Start Date Active atenolol 50 mg tablet RxNorm: 249606 1 Tablet(s) PO daily No Start Date Active Protonix 40 mg table t,delayed release RxNorm: 004025 1 Tablet(s) PO daily No Start Date 04/04/2016 Inactive glipizide 10 mg tablet RxNorm: 165565 1 Tablet(s) PO BID No Start Date 03/22/2015 Inactive Lantus 100 unit/mL s ubcutaneous solution RxNorm: 300637 15 Unit(s) SQ QPM No Start Date 12/28/2014 Inactive lisinopril 10 mg tablet RxNorm: 046863 1 Tablet(s) PO daily No Start Date 01/05/2016 Inactive Vitamin D2 50,000 un it capsule RxNorm: 996210 1 Capsule(s) PO QW No Start Date 08/01/2015 Inactive Yovana SoloStar 300 unit/mL (1.5 mL) subcutaneous insulin pen RxNorm: 4515920 30 Unit(s) SQ QHS No Start Date 08/01/2015 Inactive simvastatin 40 mg ta blet RxNorm: 376559 1 Tablet(s) PO daily No Start Date 12/27/2015 Inactive testosterone cypiona te 200 mg/mL intramuscular oil RxNorm: 932324 1 Milliliter(s) IM monthly No Start Date 01/16/2018 Inactive hydrocodone 5 mg-linh taminophen 325 mg tablet RxNorm: 971844 1 Tablet(s) PO Q8 as needed No Start Date 12/08/2014 Inactive metformin 500 mg tablet RxNorm: 685495 1 Tablet(s) PO daily No Start Date 04/24/2015 Inactive omeprazole 20 mg cap jacquelyn,delayed release RxNorm: 027152 1 Capsule(s) PO daily No Start Date 10/05/2015 Inactive Flomax 0.4 mg capsule RxNorm: 938806 1 Capsule(s) PO daily No Start Date 03/23/2015 Inactive Medication Administered Medication Codes Instruc tions Start Date Status testosterone cypionate 200 mg/mL intramuscular oil RxNorm: 9258350 Milliliter 12/02/2018 No longer Active testosterone cypionate 200 mg/mL intramuscular oil RxNorm: 2554195 Milliliter 11/18/2018 No longer Active testosterone cypionate 200 mg/mL intramuscular oil RxNorm: 7037868 Milliliter 11/04/2018 No longer Active testosterone cypionate 200 mg/mL intramuscular oil RxNorm: 8725507 Milliliter 10/14/2018 No longer Active testosterone cypionate 200 mg/mL intramuscular oil RxNorm: 7271500 Milliliter 10/03/2018 No longer Active testosterone cypionate 200 mg/mL intramuscular oil RxNorm: 2136865 Milliliter 09/23/2018 No longer Active testosterone cypionate 200 mg/mL intramuscular oil RxNorm: 1139088 1/2Milliliter 09/02/2018 No longer Active testosterone enanthate 200 mg/mL intramuscular oil RxNorm: 400047 Milliliter 08/21/2018 No longer Active testosterone cypionate 200 mg/mL intramuscular oil RxNorm: 9970869 Milliliter 08/08/2018 No longer Active testosterone cypionate 200 mg/mL intramuscular oil RxNorm: 4921981 1/2Milliliter 07/28/2018 No longer Active testosterone cypionate 200 mg/mL intramuscular oil RxNorm: 104240 Milliliter 07/16/2018 No longer Active testosterone cypionate 200 mg/mL intramuscular oil RxNorm: 808419 Milliliter 07/02/2018 No longer Active testosterone cypionate 200 mg/mL intramuscular oil RxNorm: 960858 [facility] 06/24/2018 No longer Active testosterone cypionate 200 mg/mL intramuscular oil RxNorm: 071512 [facility]iliter 06/13/2018 No longer Active testosterone cypionate 200 mg/mL intramuscular oil RxNorm: 836366 [facility]iliter 06/05/2018 No longer Active testosterone cypionate 200 mg/mL intramuscular oil RxNorm: 403959 [facility]iliter 05/30/2018 No longer Active testosterone cypionate 200 mg/mL intramuscular oil RxNorm: 815942 Milliliter 05/22/2018 No longer Active testosterone cypionate 200 mg/mL intramuscular oil RxNorm: 881251 /2Milliliter 05/12/2018 No longer Active testosterone cypionate 200 mg/mL intramuscular oil RxNorm: 124090 Milliliter 05/02/2018 No longer Active testosterone cypionate 200 mg/mL intramuscular oil RxNorm: 161752 0.5Milliliter 04/24/2018 No longer Active testosterone cypionate 200 mg/mL intramuscular oil RxNorm: 180246 /2Milliliter 04/17/2018 No longer Active ketorolac 60 mg/2 mL intramuscular solution RxNorm: 8505424 Milliliter 03/07/2018 No longer Active Kenalog 40 mg/mL suspension for injection RxNorm: 4906909 1.5Milliliter 01/30/2018 No longer Active testosterone cypionate 200 mg/mL intramuscular oil RxNorm: 934821 [facility]iliter 01/17/2018 No longer Active Kenalog 40 mg/mL suspension for injection RxNorm: 0766391 Milliliter 04/12/2015 No longer Active Kenalog 40 mg/mL suspension for injection RxNorm: 3862743 Milliliter 12/23/2014 No longer Active Immunizations Vaccine Codes Date Status Influenza CVX: 141 06/06 completed Influenza CVX: 141 04/25 completed Pneumococcal (Adult) CVX: 133 04/25/2017 completed Influenza CVX: 141 05/22 completed Assessments Condition Codes Effectiv e Dates Testicular dysfunction, unspecified ICD-10: E29.9 ICD-9: 257.9 12/02/2018 Chronic obstructive pulmonary disease, unspecified ICD-10: J44.9 [...] 33.4 pg 12/02/2018 Cbc With Differential Ord2 [place]% 8.0 % 12/02/2018 Cbc With Differential Ord2 [...] 2.13 K/ul 12/02/2018 Cbc With Differential Ord2 [place] ABS# 0.6 K/ul 12/02/2018 Cbc With Differential Ord2 Eos ABS# 0.4 K/ul 12/02/2018 Cbc With Differential Ord2 Baso ABS# 0.0 K/ul 12/02/2018 Testosterone Hul002 Testo 213.5 ng/dL 12/02/2018 A1C Frequency Yqv636 A1CF 93331-9 Last A1[place] [facility] [place] [facility] [place]: 201812/02/2018 Testosterone Qbo799 Testo 669.0 ng/dL 09/08/2018 %Hba1C Hdj596 % HbA1c 75918-8 7.4 % 09/08/2018 %Hba1C Mii880 Gluc Ave 166 mg/dL 09/08/2018 Lipid Ord30 CHOL 114 mg/dL 09/08/2018 Lipid Ord30 HDL 28.0 mg/dl 09/08/2018 Lipid Ord30 TRIG 154 mg/dL 09/08/2018 Lipid Ord30 LDL 55 mg/dL 09/08/2018 Lipid Ord30 C/HDL 4.1 Ratio 09/08/2018 Comp Metabolic Osc950 NA 137 mEq/L 09/08/2018 Comp Metabolic Xeo163 K 4.3 mEq/L 09/08/2018 Comp Metabolic Vrr743 CL 100 mEq/L 09/08/2018 Comp Metabolic Oem177 CO2 27.0 mEq/L 09/08/2018 Comp Metabolic Kxj040 AN ION GAP 14 09/08/2018 Comp Metabolic Uiy727 GL UCOSE 85 mg/dL 09/08/2018 Comp Metabolic Ycb276 Cr eat 1.1 mg/dL 09/08/2018 Comp Metabolic Quc449 eG FR 70 ml/min/1.73m2 09/08 Comp Metabolic Jkz581 BUN 11 mg/dL 09/08/2018 Comp Metabolic Mit783 B/ C Ratio 10.3 Ratio 09/08/2018 Comp Metabolic Ohi071 CA LCIUM 9.2 mg/dL 09/08/2018 Comp Metabolic Dhf395 AL K PHOS 65 U/L 09/08/2018 Comp Metabolic Oro281 T(SGOT) 16 U/L 09/08/2018 Comp Metabolic Jwa320 AL T(SGPT) 14 U/L 09/08/2018 Comp Metabolic Wsu284 BI LI T 0.6 mg/dL 09/08/2018 Comp Metabolic Fig323 AL BUMIN 4.0 g/dL 09/08/2018 Comp Metabolic Zxi328 TP RO 6.6 g/dL 09/08/2018 Comp Metabolic Cjc288 GL OB 2.6 g/dL 09/08/2018 Comp Metabolic Sjm529 A/ G Ratio 1.6 Ratio 09/08/2018 Comp Metabolic Tio463 Os mo 272 mOsmo 09/08/2018 Vitamin D 25 Oh Zmj0593 VITAMIN D, 25 HYDROXY 37.17 ng/mL 09/08/2018 [...] 33.3 pg 09/08/2018 Cbc With Differential Ord2 [place]% 8.1 % 09/08/2018 Cbc With Differential Ord2 [...] 2.44 K/ul 09/08/2018 Cbc With Differential Ord2 [place] ABS# 0.6 K/ul 09/08/2018 Cbc With Differential Ord2 Eos ABS# 0.3 K/ul 09/08/2018 Cbc With Differential Ord2 Baso ABS# 0.0 K/ul 09/08/2018 Tsh Ord6 TSH (3rd IS) 2.72 uIU/mL 09/08/2018 Comp Metabolic Bfj776 NA 139 mEq/L 04/01/2018 Comp Metabolic Vnx394 K 4.2 mEq/L 04/01/2018 Comp Metabolic Tzh921 CL 102 mEq/L 04/01/2018 Comp Metabolic Qdc830 CO2 29.0 mEq/L 04/01/2018 Comp Metabolic Izb003 AN ION GAP 12 04/01/2018 Comp Metabolic Oxy547 GL UCOSE 87 mg/dL 04/01/2018 Comp Metabolic Wtb041 Cr eat 1.1 mg/dL 04/01/2018 Comp Metabolic Wih262 eG FR 70 ml/min/1.73m2 04/01 Comp Metabolic Ify225 BUN 21 mg/dL 04/01/2018 Comp Metabolic Tas877 B/ C Ratio 19.4 Ratio 04/01/2018 Comp Metabolic Wpd447 CA LCIUM 9.1 mg/dL 04/01/2018 Comp Metabolic Man869 AL K PHOS 60 U/L 04/01/2018 Comp Metabolic Xnh413 T(SGOT) 15 U/L 04/01/2018 Comp Metabolic Gxd742 AL T(SGPT) 18 U/L 04/01/2018 Comp Metabolic Isr533 BI LI T 0.4 mg/dL 04/01/2018 Comp Metabolic Zrl801 AL BUMIN 4.0 g/dL 04/01/2018 Comp Metabolic Dka658 TP RO 6.5 g/dL 04/01/2018 Comp Metabolic Rgl231 GL OB 2.5 g/dL 04/01/2018 Comp Metabolic Xyp347 A/ G Ratio 1.6 Ratio 04/01/2018 Comp Metabolic Spb356 Os mo 280 mOsmo 04/01/2018 Lipid Ord30 [...] 34.3 pg 04/01/2018 Cbc With Differential Ord2 [place]% 6.0 % 04/01/2018 Cbc With Differential Ord2 [...] 3.25 K/ul 04/01/2018 Cbc With Differential Ord2 [place] ABS# 0.6 K/ul 04/01/2018 Cbc With Differential Ord2 Eos ABS# 0.4 K/ul 04/01/2018 Cbc With Differential Ord2 Baso ABS# 0.0 K/ul 04/01/2018 %Hba1C Qln559 % HbA1c 73730-5 8.0 % 04/01/2018 %Hba1C Ufe769 Gluc Ave 183 mg/dL 04/01/2018 Testosterone Tsp291 Testo 111.3 ng/dL 04/01/2018 Testosterone Uyc801 Testo 135.4 ng/dL 01/14/2018 Cbc With Differential [...] 36.0 pg 01/14/2018 Cbc With Differential Ord2 [place]% 6.8 % 01/14/2018 Cbc With Differential Ord2 [...] 2.71 K/ul 01/14/2018 Cbc With Differential Ord2 [place] ABS# 0.8 K/ul 01/14/2018 Cbc With Differential Ord2 Eos ABS# 0.2 K/ul 01/14/2018 Cbc With Differential Ord2 Baso ABS# 0.0 K/ul 01/14/2018 Comp Metabolic Sic189 NA 134 mEq/L 11/20/2017 Comp Metabolic Ziv859 K 4.4 mEq/L 11/20/2017 Comp Metabolic Iko832 CL 99 mEq/L 11/20/2017 Comp Metabolic Gsn030 CO2 29.0 mEq/L 11/20/2017 Comp Metabolic Zgk797 AN ION GAP 10 11/20/2017 Comp Metabolic Vyq429 GL UCOSE 218 mg/dL 11/20/2017 Comp Metabolic Fct272 Cr eat 1.0 mg/dL 11/20/2017 Comp Metabolic Use590 eG FR 78 ml/min/1.73m2 11/20 Comp Metabolic Dql935 BUN 13 mg/dL 11/20/2017 Comp Metabolic Wui180 B/ C Ratio 13.3 Ratio 11/20/2017 Comp Metabolic Pbe573 CA LCIUM 9.0 mg/dL 11/20/2017 Comp Metabolic Dqk031 AL K PHOS 71 U/L 11/20/2017 Comp Metabolic Jqw447 T(SGOT) 18 U/L 11/20/2017 Comp Metabolic Aym859 AL T(SGPT) 17 U/L 11/20/2017 Comp Metabolic Off683 BI LI T 0.4 mg/dL 11/20/2017 Comp Metabolic Hgm005 AL BUMIN 4.1 g/dL 11/20/2017 Comp Metabolic Vnc521 TP RO 6.5 g/dL 11/20/2017 Comp Metabolic Gwy748 GL OB 2.4 g/dL 11/20/2017 Comp Metabolic Xuy721 A/ G Ratio 1.8 Ratio 11/20/2017 Comp Metabolic Rsz370 Os mo 275 mOsmo 11/20/2017 Cbc With [...] 35.2 pg 11/20/2017 Cbc With Differential Ord2 [place]% 7.2 % 11/20/2017 Cbc With Differential Ord2 [...] 3.34 K/ul 11/20/2017 Cbc With Differential Ord2 [place] ABS# 0.6 K/ul 11/20/2017 Cbc With Differential Ord2 Eos ABS# 0.3 K/ul 11/20/2017 Cbc With Differential Ord2 Baso ABS# 0.0 K/ul 11/20/2017 Vitamin D 25 Oh Lwd2704 VITAMIN D, 25 HYDROXY 43.72 ng/mL 11/20/2017 %Hba1C Vrb640 % HbA1c 15298-9 7.4 % 11/20/2017 %Hba1C Lnz935 Gluc Ave 166 mg/dL 11/20/2017 %Hba1C Hnp619 % HbA1c 90665-8 7.2 % 08/20/2017 %Hba1C Beg688 Gluc Ave 160 mg/dL 08/20/2017 Lipid Ord30 [...] 34.7 pg 08/20/2017 Cbc With Differential Ord2 [place]% 7.6 % 08/20/2017 Cbc With Differential Ord2 [...] 2.42 K/ul 08/20/2017 Cbc With Differential Ord2 [place] ABS# 0.6 K/ul 08/20/2017 Cbc With Differential Ord2 Eos ABS# 0.3 K/ul 08/20/2017 Cbc With Differential Ord2 Baso ABS# 0.0 K/ul 08/20/2017 Tsh Ord6 hTSH II 2.27 uIU/mL 08/20/2017 Comp Metabolic Xrx111 NA 138 mEq/L 08/20/2017 Comp Metabolic Ccm851 K 4.3 mEq/L 08/20/2017 Comp Metabolic Gzf485 CL 102 mEq/L 08/20/2017 Comp Metabolic Rtt332 CO2 29.0 mEq/L 08/20/2017 Comp Metabolic Bzn976 AN ION GAP 11 08/20/2017 Comp Metabolic Cxj251 GL UCOSE 89 mg/dL 08/20/2017 Comp Metabolic Aol327 Cr eat 1.0 mg/dL 08/20/2017 Comp Metabolic Kwe466 eG FR 80 ml/min/1.73m2 08/20 Comp Metabolic Nwm943 BUN 13 mg/dL 08/20/2017 Comp Metabolic Zkw479 B/ C Ratio 13.5 Ratio 08/20/2017 Comp Metabolic Iqn547 CA LCIUM 9.2 mg/dL 08/20/2017 Comp Metabolic Fgb335 AL K PHOS 69 U/L 08/20/2017 Comp Metabolic Ghu272 T(SGOT) 18 U/L 08/20/2017 Comp Metabolic Wke061 AL T(SGPT) 19 U/L 08/20/2017 Comp Metabolic Ecl156 BI LI T 0.6 mg/dL 08/20/2017 Comp Metabolic Ztu871 AL BUMIN 4.0 g/dL 08/20/2017 Comp Metabolic Uiv968 TP RO 6.6 g/dL 08/20/2017 Comp Metabolic Awi634 GL OB 2.6 g/dL 08/20/2017 Comp Metabolic Slj100 A/ G Ratio 1.5 Ratio 08/20/2017 Comp Metabolic Uen532 Os mo 275 mOsmo 08/20/2017 Vitamin D 25 Oh Iaw4732 VITAMIN D, 25 HYDROXY 30.96 ng/mL 08/20/2017 B12 Wme050 B12 >1500.00 pg/ml 02/22/2017 Cbc With Differential [...] 35.7 pg 02/20/2017 Cbc With Differential Ord2 [place]% 6.3 % 02/20/2017 Cbc With Differential Ord2 [...] 3.19 K/ul 02/20/2017 Cbc With Differential Ord2 [place] ABS# 0.5 K/ul 02/20/2017 Cbc With Differential Ord2 Eos ABS# 0.4 K/ul 02/20/2017 Cbc With Differential Ord2 Baso ABS# 0.0 K/ul 02/20/2017 Comp Metabolic Bpp949 NA 138 mEq/L 02/20/2017 Comp Metabolic Ava688 K 4.5 mEq/L 02/20/2017 Comp Metabolic Opu133 CL 101 mEq/L 02/20/2017 Comp Metabolic Hei059 CO2 31.0 mEq/L 02/20/2017 Comp Metabolic Hnx146 AN ION GAP 11 02/20/2017 Comp Metabolic Ogs981 GL UCOSE 120 mg/dL 02/20/2017 Comp Metabolic Qbd547 Cr eat 0.9 mg/dL 02/20/2017 Comp Metabolic Tmj568 eG FR 83 ml/min/1.73m2 02/20 Comp Metabolic Unl653 BUN 15 mg/dL 02/20/2017 Comp Metabolic Ynt294 B/ C Ratio 16.1 Ratio 02/20/2017 Comp Metabolic Gpz497 CA LCIUM 9.1 mg/dL 02/20/2017 Comp Metabolic Efi097 AL K PHOS 67 U/L 02/20/2017 Comp Metabolic Kcu257 T(SGOT) 15 U/L 02/20/2017 Comp Metabolic Iif931 AL T(SGPT) 16 U/L 02/20/2017 Comp Metabolic Mjl120 BI LI T 0.5 mg/dL 02/20/2017 Comp Metabolic Vlo560 AL BUMIN 4.0 g/dL 02/20/2017 Comp Metabolic Xyr658 TP RO 6.4 g/dL 02/20/2017 Comp Metabolic Seb417 GL OB 2.4 g/dL 02/20/2017 Comp Metabolic Pbq847 A/ G Ratio 1.7 Ratio 02/20/2017 Comp Metabolic Bic266 Os mo 278 mOsmo 02/20/2017 Tsh Ord6 hTSH II 2.05 uIU/mL 02/20/2017 %Hba1C Wjs910 % HbA1c 70994-2 7.6 % 02/20/2017 %Hba1C Thc447 Gluc Ave 171 mg/dL 02/20/2017 Vitamin D 25 Oh Mii4413 VITAMIN D, 25 HYDROXY 44.40 ng/mL 12/21/2016 Comp Metabolic Klr251 NA 131 mEq/L 12/21/2016 Comp Metabolic Gnl907 K 4.2 mEq/L 12/21/2016 Comp Metabolic Kod952 CL 97 mEq/L 12/21/2016 Comp Metabolic Mis003 CO2 27.0 mEq/L 12/21/2016 Comp Metabolic Xqi378 AN ION GAP 11 12/21/2016 Comp Metabolic Dlx509 GL UCOSE 266 mg/dL 12/21/2016 Comp Metabolic Uox633 Cr eat 0.9 mg/dL 12/21/2016 Comp Metabolic Xan989 eG FR 88 ml/min/1.73m2 12/21 Comp Metabolic Jwb444 BUN 12 mg/dL 12/21/2016 Comp Metabolic Cxw385 B/ C Ratio 13.6 Ratio 12/21/2016 Comp Metabolic Uct548 CA LCIUM 8.6 mg/dL 12/21/2016 Comp Metabolic Wmw012 AL K PHOS 69 U/L 12/21/2016 Comp Metabolic Sux742 T(SGOT) 15 U/L 12/21/2016 Comp Metabolic Rmt710 AL T(SGPT) 14 U/L 12/21/2016 Comp Metabolic Gcy805 BI LI T 0.3 mg/dL 12/21/2016 Comp Metabolic Glk272 AL BUMIN 3.7 g/dL 12/21/2016 Comp Metabolic Kef040 TP RO 5.9 g/dL 12/21/2016 Comp Metabolic Avu257 GL OB 2.2 g/dL 12/21/2016 Comp Metabolic Npe448 A/ G Ratio 1.7 Ratio 12/21/2016 Comp Metabolic Zbq163 Os mo 272 mOsmo 12/21/2016 Cbc With [...] 34.6 pg 12/21/2016 Cbc With Differential Ord2 [place]% 6.9 % 12/21/2016 Cbc With Differential Ord2 [...] 2.05 K/ul 12/21/2016 Cbc With Differential Ord2 [place] ABS# 0.4 K/ul 12/21/2016 Cbc With Differential Ord2 Eos ABS# 0.2 K/ul 12/21/2016 Cbc With Differential Ord2 Baso ABS# 0.0 K/ul 12/21/2016 Comp Metabolic Erp275 NA 138 mEq/L 09/03/2016 Comp Metabolic Yvb526 K 4.5 mEq/L 09/03/2016 Comp Metabolic Bcs541 CL 102 mEq/L 09/03/2016 Comp Metabolic Syp360 CO2 30.0 mEq/L 09/03/2016 Comp Metabolic Sfj459 AN ION GAP 11 09/03/2016 Comp Metabolic Dod425 GL UCOSE 113 mg/dL 09/03/2016 Comp Metabolic Bqh975 Cr eat 1.0 mg/dL 09/03/2016 Comp Metabolic Cga533 eG FR 81 ml/min/1.73m2 09/03 Comp Metabolic Mqs109 BUN 10 mg/dL 09/03/2016 Comp Metabolic Zoa832 B/ C Ratio 10.5 Ratio 09/03/2016 Comp Metabolic Xsx551 CA LCIUM 9.1 mg/dL 09/03/2016 Comp Metabolic Igo929 AL K PHOS 71 U/L 09/03/2016 Comp Metabolic Ovt439 T(SGOT) 18 U/L 09/03/2016 Comp Metabolic Jru343 AL T(SGPT) 17 U/L 09/03/2016 Comp Metabolic Rog843 BI LI T 0.6 mg/dL 09/03/2016 Comp Metabolic Qri819 AL BUMIN 4.1 g/dL 09/03/2016 Comp Metabolic Wjx821 TP RO 6.4 g/dL 09/03/2016 Comp Metabolic Nbs578 GL OB 2.3 g/dL 09/03/2016 Comp Metabolic Kpd054 A/ G Ratio 1.8 Ratio 09/03/2016 Comp Metabolic Dgd549 Os mo 276 mOsmo 09/03/2016 Vitamin D 25 Oh Fsh4661 VITAMIN D, 25 HYDROXY 28.23 ng/mL 09/03/2016 [...] 34.4 pg 09/03/2016 Cbc With Differential Ord2 [place]% 8.9 % 09/03/2016 Cbc With Differential Ord2 [...] 3.34 K/ul 09/03/2016 Cbc With Differential Ord2 [place] ABS# 0.7 K/ul 09/03/2016 Cbc With Differential Ord2 Eos ABS# 0.4 K/ul 09/03/2016 Cbc With Differential Ord2 Baso ABS# 0.0 K/ul 09/03/2016 Lipid Ord30 CHOL 120 mg/dL 09/03/2016 Lipid Ord30 HDL 33.0 mg/dl 09/03/2016 Lipid Ord30 TRIG 161 mg/dL 09/03/2016 Lipid Ord30 LDL 55 mg/dL 09/03/2016 Lipid Ord30 C/HDL 3.6 Ratio 09/03/2016 %Hba1C Zux350 % HbA1c 83453-0 7.5 % 09/03/2016 %Hba1C Yal409 Gluc Ave 169 mg/dL 09/03/2016 Tsh Ord6 hTSH II 1.50 uIU/mL 05/23/2016 %Hba1C Dbv430 % HbA1c 24513-0 7.6 % 05/23/2016 %Hba1C Noj289 Gluc Ave 171 mg/dL 05/23/2016 Comp Metabolic Mvk009 NA 135 mEq/L 05/23/2016 Comp Metabolic Qmr885 K 4.4 mEq/L 05/23/2016 Comp Metabolic Ats822 CL 99 mEq/L 05/23/2016 Comp Metabolic Oim998 CO2 28.0 mEq/L 05/23/2016 Comp Metabolic Vzw789 AN ION GAP 12 05/23/2016 Comp Metabolic Gfs164 GL UCOSE 257 mg/dL 05/23/2016 Comp Metabolic Bwa958 Cr eat 0.8 mg/dL 05/23/2016 Comp Metabolic Hwv187 eG FR 95 ml/min/1.73m2 05/23 Comp Metabolic Prv432 BUN 11 mg/dL 05/23/2016 Comp Metabolic Agu912 B/ C Ratio 13.3 Ratio 05/23/2016 Comp Metabolic Pzp707 CA LCIUM 9.0 mg/dL 05/23/2016 Comp Metabolic Rba495 AL K PHOS 82 U/L 05/23/2016 Comp Metabolic Eor522 T(SGOT) 21 U/L 05/23/2016 Comp Metabolic Xya138 AL T(SGPT) 20 U/L 05/23/2016 Comp Metabolic Uzo707 BI LI T 0.3 mg/dL 05/23/2016 Comp Metabolic Thg727 AL BUMIN 4.0 g/dL 05/23/2016 Comp Metabolic Rnk590 TP RO 6.4 g/dL 05/23/2016 Comp Metabolic Bwf923 GL OB 2.4 g/dL 05/23/2016 Comp Metabolic Hks028 A/ G Ratio 1.6 Ratio 05/23/2016 Comp Metabolic Lxi346 Os mo 278 mOsmo 05/23/2016 Cbc With [...] 34.5 pg 05/23/2016 Cbc With Differential Ord2 [place]% 6.1 % 05/23/2016 Cbc With Differential Ord2 [...] 2.38 K/ul 05/23/2016 Cbc With Differential Ord2 [place] ABS# 0.4 K/ul 05/23/2016 Cbc With Differential Ord2 Eos ABS# 0.2 K/ul 05/23/2016 Cbc With Differential Ord2 Baso ABS# 0.0 K/ul 05/23/2016 B12 Nkc163 B12 597.00 pg/ml 05/23/2016 Metabolic Ord15 NA [...] 0.92 uIU/mL 07/29/2015 Vitamin D 25 Oh Zea4321 VITAMIN D, 25 HYDROXY 26.93 ng/mL 07/29/2015 %Hba1C Akb177 % HbA1c 18208-4 8.8 % 07/29/2015 %Hba1C Ikh331 Gluc Ave 206 mg/dL 07/29/2015 Cbc With [...] Ord2 RDW 14.9 % 07/29/2015 Comp Metabolic Jmt495 NA 138 mEq/L 07/29/2015 Comp Metabolic Zoi330 K 4.4 mEq/L 07/29/2015 Comp Metabolic Nqt968 CL 102 mEq/L 07/29/2015 Comp Metabolic Pup258 CO2 28.0 mEq/L 07/29/2015 Comp Metabolic Gzz222 AN ION GAP 12 07/29/2015 Comp Metabolic Kim440 GL UCOSE 261 mg/dL 07/29/2015 Comp Metabolic Yel473 Cr eat 1.0 mg/dL 07/29/2015 Comp Metabolic Xvl398 eG FR 77 ml/min/1.73m2 07/29 Comp Metabolic Wre422 BUN 13 mg/dL 07/29/2015 Comp Metabolic Lsz884 B/ C Ratio 13.0 Ratio 07/29/2015 Comp Metabolic Dju101 CA LCIUM 9.1 mg/dL 07/29/2015 Comp Metabolic Kfp654 AL K PHOS 64 U/L 07/29/2015 Comp Metabolic Vwu584 T(SGOT) 20 U/L 07/29/2015 Comp Metabolic Xtd217 AL T(SGPT) 22 U/L 07/29/2015 Comp Metabolic Hbv305 BI LI T 0.4 mg/dL 07/29/2015 Comp Metabolic Agd685 AL BUMIN 4.0 g/dL 07/29/2015 Comp Metabolic Vsr849 TP RO 6.1 g/dL 07/29/2015 Comp Metabolic Htr254 GL OB 2.1 g/dL 07/29/2015 Comp Metabolic Zms609 A/ G Ratio 1.9 Ratio 07/29/2015 Comp Metabolic Ybx975 Os mo 285 mOsmo 07/29/2015 Cbc With [...] Ord2 RDW 13.1 % 05/06/2015 Comp Metabolic Ylu988 NA 134 mEq/L 05/06/2015 Comp Metabolic Szc305 K 4.4 mEq/L 05/06/2015 Comp Metabolic Frd062 CL 98 mEq/L 05/06/2015 Comp Metabolic Ccg476 CO2 29.0 mEq/L 05/06/2015 Comp Metabolic Nkz062 AN ION GAP 11 05/06/2015 Comp Metabolic Yps330 GL UCOSE 321 mg/dL 05/06/2015 Comp Metabolic Nch231 Cr eat 1.0 mg/dL 05/06/2015 Comp Metabolic Qeq555 eG FR 78 ml/min/1.73m2 05/06 Comp Metabolic Kex304 BUN 20 mg/dL 05/06/2015 Comp Metabolic Bps365 B/ C Ratio 20.4 Ratio 05/06/2015 Comp Metabolic Zmx313 CA LCIUM 9.5 mg/dL 05/06/2015 Comp Metabolic Lyn408 AL K PHOS 62 U/L 05/06/2015 Comp Metabolic Hmd879 T(SGOT) 21 U/L 05/06/2015 Comp Metabolic Gqh863 AL T(SGPT) 37 U/L 05/06/2015 Comp Metabolic Mdd221 BI LI T 0.4 mg/dL 05/06/2015 Comp Metabolic Mfo111 AL BUMIN 3.8 g/dL 05/06/2015 Comp Metabolic Wkp920 TP RO 6.1 g/dL 05/06/2015 Comp Metabolic Lfy174 GL OB 2.3 g/dL 05/06/2015 Comp Metabolic Qzw553 A/ G Ratio 1.7 Ratio 05/06/2015 Comp Metabolic Mfu827 Os mo 283 mOsmo 05/06/2015 Tsh Ord6 hTSH II 1.65 uIU/mL 02/18/2015 B12 Nfx819 B12 605.00 pg/ml 02/18/2015 %Hba1C Fqo504 % HbA1c 22288-4 8.3 % 02/18/2015 %Hba1C Cmb245 Gluc Ave 192 mg/dL 02/18/2015 Cbc With [...] Ord2 RDW 13.9 % 02/17/2015 Comp Metabolic Axw767 NA 137 mEq/L 02/17/2015 Comp Metabolic Jrd265 K 4.4 mEq/L 02/17/2015 Comp Metabolic Rlm220 CL 100 mEq/L 02/17/2015 Comp Metabolic Blq740 CO2 31.0 mEq/L 02/17/2015 Comp Metabolic Kiy472 AN ION GAP 10 02/17/2015 Comp Metabolic Onc311 GL UCOSE 307 mg/dL 02/17/2015 Comp Metabolic Rac176 Cr eat 1.0 mg/dL 02/17/2015 Comp Metabolic Cep835 eG FR 74 ml/min/1.73m2 02/17 Comp Metabolic Ska029 BUN 22 mg/dL 02/17/2015 Comp Metabolic Oje956 B/ C Ratio 21.4 Ratio 02/17/2015 Comp Metabolic Dkh207 CA LCIUM 9.5 mg/dL 02/17/2015 Comp Metabolic Yxt344 AL K PHOS 78 U/L 02/17/2015 Comp Metabolic Btk661 T(SGOT) 18 U/L 02/17/2015 Comp Metabolic Jtm114 AL T(SGPT) 32 U/L 02/17/2015 Comp Metabolic Ndb488 BI LI T 0.5 mg/dL 02/17/2015 Comp Metabolic Dyg211 AL BUMIN 4.3 g/dL 02/17/2015 Comp Metabolic Mzh446 TP RO 6.7 g/dL 02/17/2015 Comp Metabolic Bin283 GL OB 2.4 g/dL 02/17/2015 Comp Metabolic Lia571 A/ G Ratio 1.8 Ratio 02/17/2015 Comp Metabolic Iyr210 Os mo 289 mOsmo 02/17/2015 Review of [...] inspection of skin Location: face 03/07/2015 on bahai, cheeks,actinic keratosis with irritation on left cheek - left bahai - croptherapy on these two lesions - [...] Procedure Codes Date THER/PROPH/DIAG INJ SC/IM CPT-4: 45370 12/02/2018 THER/PROPH/DIAG INJ SC/IM CPT-4: 65770 11/18/2018 THER/PROPH/DIAG INJ SC/IM CPT-4: 36434 11/04/2018 THER/PROPH/DIAG INJ SC/IM CPT-4: 76620 10/14/2018 THER/PROPH/DIAG INJ SC/IM CPT-4: 22023 10/03/2018 THER/PROPH/DIAG INJ SC/IM CPT-4: 02472 09/23/2018 THER/PROPH/DIAG INJ SC/IM CPT-4: 05771 09/02/2018 THER/PROPH/DIAG INJ SC/IM CPT-4: 06488 08/21/2018 THER/PROPH/DIAG INJ SC/IM CPT-4: 94878 08/08/2018 THER/PROPH/DIAG INJ SC/IM CPT-4: 08981 07/28/2018 THER/PROPH/DIAG INJ SC/IM CPT-4: 05207 07/16/2018 THER/PROPH/DIAG INJ SC/IM CPT-4: 87495 07/02/2018 PPPS, SUBSEQ VISIT CPT- 4: G0439 06/30/2018 THER/PROPH/DIAG INJ SC/IM CPT-4: 33134 06/24/2018 THER/PROPH/DIAG INJ SC/IM CPT-4: 04488 06/13/2018 ADMIN INFLUENZA VIRU S VAC CPT-4: G0008 06/06/2018 FLU VACC PRSV FREE I NC ANTIG CPT-4: 32133 06/06/2018 THER/PROPH/DIAG INJ SC/IM CPT-4: 69870 06/05/2018 THER/PROPH/DIAG INJ SC/IM CPT-4: 05734 05/30/2018 THER/PROPH/DIAG INJ SC/IM CPT-4: 60673 05/22/2018 THER/PROPH/DIAG INJ SC/IM CPT-4: 19759 05/12/2018 THER/PROPH/DIAG INJ SC/IM CPT-4: 19346 05/02/2018 THER/PROPH/DIAG INJ SC/IM CPT-4: 46104 04/24/2018 THER/PROPH/DIAG INJ SC/IM CPT-4: 80548 04/17/2018 KETOROLAC TROMETHAMI NE INJ CPT-4: J1885 03/07/2018 URINALYSIS NONAUTO W /O SCOPE CPT-4: 39909 03/07/2018 THER/PROPH/DIAG INJ SC/IM CPT-4: 40702 02/20/2018 TRIAMCINOLONE ACET I [place] NOS CPT-4: J3301 01/30/2018 THER/PROPH/DIAG INJ SC/IM CPT-4: 48931 01/17/2018 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 3-[address]: 333020448 CPT-4: G0436 04/25/2017 ADMIN INFLUENZA VIRU S VAC CPT-4: G0008 04/25/2017 ADMIN PNEUMOCOCCAL V ACCINE SNOMED CT: 07701300 CPT-4: G0009 04/25/2017 PNEUMOCOCCAL VACC [address]: 56235848 CPT-4: 99627 04/25/2017 FLU VACC PRSV FREE I NC ANTIG CPT-4: 78010 04/25/2017 ADMIN INFLUENZA VIRU S VAC CPT-4: G0008 05/22/2016 FLU VACC 4 TELLY 3 YRS PLUS IM Formatting Model/CDA Sections, Assigned to/Angela Clemons SNOMED CT: 85955151 CPT-4: 01494Oingndt 05/22/2016 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 3-[address]: 736120184 CPT-4: G0436 11/25/2015 URINALYSIS NONAUTO W /O SCOPE CPT-4: 82582 05/09/2015 TRIAMCINOLONE ACET I [place] NOS CPT-4: J3301 04/12/2015 DESTRUCT PREMALG LESION CPT-4: 32677 03/07/2015 DESTRUCT PREMALG LES 2-14 CPT-4: 02649 03/07/2015 REMOVE IMPACTED EAR WAX UNI CPT-4: 95308 12/31/2014 THER/PROPH/DIAG INJ SC/IM CPT-4: 06362 12/23/2014 TRIAMCINOLONE ACET I [place] NOS CPT-4: J3301 12/23/2014 Vital Signs Date Vital 12/02/2018 Blood Pressure 1: 140/70 Code: 8480-6 BMI: 21.9 Code: 16801-2 Heart Rate 1: 61 bpm Height: 5'11" SpO2: 94% Weight: 157 lbs 10/17/2018 Blood Pressure 1: 124/54 Code: 8480-6 BMI: 21.9 Code: 14752-5 Heart Rate 1: 64 bpm Height: 5'11" SpO2: 93% Weight: 157 lbs 09/02/2018 Blood Pressure 1: 140/80 Code: 8480-6 BMI: 21.2 Code: 20985-3 Heart Rate 1: 68 bpm Height: 5'11" SpO2: 97% Weight: 152 lbs 06/30/2018 BMI: 21.8 Code: 19621-6 Height: 5'11" Weight: 156 lbs 06/06/2018 Blood Pressure 1: 128/76 Code: 8480-6 BMI: 22.0 Code: 17632-8 Heart Rate 1: 81 bpm Height: 5'11" SpO2: 92% Weight: 158 lbs 04/04/2018 Blood Pressure 1: 124/70 Code: 8480-6 BMI: 20.8 Code: 42878-3 Heart Rate 1: 65 bpm Height: 5'11" SpO2: 95% Weight: 149 lbs 03/07/2018 Blood Pressure 1: 148/70 Code: 8480-6 BMI: 21.2 Code: 46999-1 Heart Rate 1: 66 bpm Height: 5'11" SpO2: 94% Weight: 152 lbs 02/20/2018 Blood Pressure 1: 134/58 Code: 8480-6 BMI: 20.5 Code: 82722-0 Heart Rate 1: 61 bpm Height: 5'11" SpO2: 92% Weight: 147 lbs 01/30/2018 Blood Pressure 1: 158/68 Code: 8480-6 BMI: 21.5 Code: 99134-5 Heart Rate 1: 71 bpm Height: 5'11" SpO2: 92% Weight: 154 lbs 01/14/2018 Blood Pressure 1: 156/70 Code: 8480-6 Height: Weight: 01/13/2018 Blood Pressure 1: 148/62 Code: 8480-6 BMI: 20.9 Code: 26910-0 Heart Rate 1: 54 bpm Height: 5'11" SpO2: 97% Weight: 150 lbs 11/19/2017 Blood Pressure 1: 150/60 Code: 8480-6 BMI: 21.8 Code: 55287-2 Heart Rate 1: 63 bpm Height: 5'11" SpO2: 98% Weight: 156 lbs 10/02/2017 Blood Pressure 1: 168/60 Code: 8480-6 BMI: 21.9 Code: 52259-8 Heart Rate 1: 52 bpm Height: 5'11" SpO2: 97% Weight: 157 lbs 07/23/2017 Blood Pressure 1: 170/70 Code: 8480-6 BMI: 21.8 Code: 28372-8 Heart Rate 1: 65 bpm Height: 5'11" SpO2: 98% Weight: 156 lbs 04/25/2017 Blood Pressure 1: 138/60 Code: 8480-6 BMI: 21.6 Code: 99931-1 Heart Rate 1: 55 bpm Height: 5'11" SpO2: 93% Weight: 155 lbs 02/19/2017 Blood Pressure 1: 138/64 Code: 8480-6 BMI: 21.3 Code: 79838-9 Heart Rate 1: 52 bpm Height: 5'11" SpO2: 96% Weight: 152 lbs 8 oz 01/21/2017 Blood Pressure 1: 160/68 Code: 8480-6 BMI: 21.3 Code: 31524-0 Heart Rate 1: 62 bpm Height: 5'11" SpO2: 96% Weight: 153 lbs 12/20/2016 Blood Pressure 1: 124/66 Code: 8480-6 BMI: 21.5 Code: 35803-2 Height: 5'11" Weight: 154 lbs 08/23/2016 Blood Pressure 1: 142/52 Code: 8480-6 BMI: 21.2 Code: 13204-3 Heart Rate 1: 54 bpm Height: 5'11" SpO2: 96% Weight: 152 lbs 05/22/2016 Blood Pressure 1: 130/76 Code: 8480-6 BMI: 21.5 Code: 72463-6 Heart Rate 1: 78 bpm Height: 5'11" SpO2: 92% Weight: 154 lbs 02/24/2016 Blood Pressure 1: 128/80 Code: 8480-6 BMI: 21.2 Code: 53731-8 Heart Rate 1: 74 bpm Height: 5'11" SpO2: 96% Weight: 152 lbs 01/27/2016 Blood Pressure 1: 144/60 Code: 8480-6 BMI: 21.2 Code: 31051-5 Heart Rate 1: 74 bpm Height: 5'11" SpO2: 97% Weight: 152 lbs 11/25/2015 Blood Pressure 1: 110/52 Code: 8480-6 BMI: 21.9 Code: 83544-0 Heart Rate 1: 65 bpm Height: 5'11" SpO2: 92% Weight: 157 lbs 07/28/2015 Blood Pressure 1: 138/62 Code: 8480-6 BMI: 21.8 Code: 97568-7 Heart Rate 1: 63 bpm Height: 5'11" SpO2: 91% Weight: 156 lbs 05/26/2015 Blood Pressure 1: 120/58 Code: 8480-6 BMI: 21.5 Code: 54299-5 Heart Rate 1: 99 bpm Height: 5'11" SpO2: 96% Weight: 154 lbs 05/06/2015 Blood Pressure 1: 120/58 Code: 8480-6 BMI: 21.2 Code: 52393-3 Heart Rate 1: 66 bpm Height: 5'11" SpO2: 96% Weight: 152 lbs 04/25/2015 Blood Pressure 1: 136/62 Code: 8480-6 BMI: 21.2 Code: 38101-9 Heart Rate 1: 63 bpm Height: 5'11" SpO2: 97% Weight: 152 lbs 04/12/2015 Blood Pressure 1: 160/58 Code: 8480-6 BMI: 21.6 Code: 36395-3 Heart Rate 1: 62 bpm Height: 5'11" Weight: 155 lbs 03/24/2015 Blood Pressure 1: 138/68 Code: 8480-6 BMI: 22.0 Code: 20577-2 Heart Rate 1: 65 bpm Height: 5'11" SpO2: 96% Weight: 158 lbs 03/07/2015 Blood Pressure 1: 116/52 Code: 8480-6 BMI: 22.2 Code: 82464-7 Heart Rate 1: 64 bpm Height: 5'11" SpO2: 97% Weight: 159 lbs 02/17/2015 Blood Pressure 1: 148/58 Code: 8480-6 BMI: 21.3 Code: 01190-7 Heart Rate 1: 63 bpm Height: 5'11" SpO2: 97% Weight: 153 lbs 12/31/2014 Blood Pressure 1: 100/60 Code: 8480-6 BMI: 21.8 Code: 07108-3 Heart Rate 1: 68 bpm Height: 5'11" Weight: 156 lbs 12/23/2014 Blood Pressure 1: 148/64 Code: 8480-6 BMI: 21.9 Code: 10626-5 Heart Rate 1: 64 bpm Height: 5'11" [...] Encounters Encounter Performer Loca tion Codes Date ([id number]) 12919 EST. 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 P ATIENT, LEVEL III Diagnosis: Orthostatic hypotension[ICD10: I95.1] Diagnosis: Low back pain[ICD10: M54.5] Diagnosis: Unsteadiness on feet[ICD10: R26.81] Karmen Ash MD, [facility] CPT-4: 58643 10/17/2018 [id number]) 38038 EST. 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 P ATIENT, LEVEL IV Diagnosis: Cellulitis of face[ICD10: L03.211] Diagnosis: Type 2 diabetes mellitus without complications[ICD10: E11.9] Diagnosis: Essential (primary) hypertension[ICD10: I10] Diagnosis: Encounter for immunization[ICD10: Z23] Karmen Ash MD, [facility] CPT-4: 98481 06/06/2018 ([id number]) 69367 EST. 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 P ATIENT, LEVEL III Diagnosis: Low back pain[ICD10: M54.5] Diagnosis: Dysuria[ICD10: R30.0] Karmen Ash MD, [facility] CPT-4: 14628 03/07/2018 ([id number]) 86993 EST. 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 P ATIENT, LEVEL III Diagnosis: Chronic obstructive pulmonary disease with (acute) exacerbation[ICD10: J44.1] Karmen Ash MD, [facility] CPT-4: 47813 01/30/2018 62124 EST. PATIENT, LEVEL II Diagnosis: Insect bite (nonvenomous), left lower leg, initial encounter[ICD10: S80.862A] Karmen Ash MD, [facility] CPT-4: 86600 01/14/2018 ([id number]) 80519 EST. P ATIENT, LEVEL IV Diagnosis: Type 2 diabetes mellitus with hyperglycemia[ICD10: E11.65] Diagnosis: Chronic obstructive pulmonary disease, unspecified[ICD10: J44.9] Diagnosis: Other fatigue[ICD10: R53.83] Karmen Ash MD, [facility] CPT- 4: 51649 01/13/2018 ([id number]) 50250 EST. P ATIENT, LEVEL IV Diagnosis: Type 2 diabetes mellitus with hyperglycemia[ICD10: E11.65] Diagnosis: Vitamin D deficiency, unspecified[ICD10: E55.9] Diagnosis: Essential (primary) hypertension[ICD10: I10] Diagnosis: Abdominal distension (gaseous)[ICD10: R14.0] Diagnosis: Drug induced constipation[ICD10: K59.03] Karmen Ash MD, [facility] CPT-4: 99609 11/19/2017 24374 EST. PATIENT, LEVEL IV Diagnosis: Low back pain[ICD10: M54.5] Diagnosis: Chronic obstructive pulmonary disease, unspecified[ICD10: J44.9] Brunilda Ash MD, [facility] CPT-4: 08151 10/02/2017 ([id number]) 84159 EST. P ATIENT, LEVEL IV Diagnosis: Essential (primary) hypertension[ICD10: I10] Diagnosis: Type 2 diabetes mellitus with hyperglycemia[ICD10: E11.65] Diagnosis: Vitamin D deficiency, unspecified[ICD10: E55.9] Diagnosis: Mixed hyperlipidemia[ICD10: E78.2] Karmen Ash MD, [facility] CPT-4: 00732 07/23/2017 ([id number]) 47399 EST. P ATIENT, LEVEL IV Diagnosis: Essential (primary) hypertension[ICD10: I10] Diagnosis: Type 2 diabetes mellitus with hyperglycemia[ICD10: E11.65] Diagnosis: Chronic obstructive pulmonary disease, unspecified[ICD10: J44.9] Diagnosis: Nicotine dependence, unspecified, uncomplicated[ICD10: F17.200] Diagnosis: Encounter for immunization[ICD10: Z23] Karmen Ash MD, [facility] CPT-4: 29407 04/25/2017 ([id number]) 62446 EST. P ATIENT, LEVEL IV Diagnosis: Type 2 diabetes mellitus with hyperglycemia[ICD10: E11.65] Diagnosis: Essential (primary) hypertension[ICD10: I10] Diagnosis: Anemia, unspecified[ICD10: D64.9] Karmen Ash MD, [facility] CPT- 4: 69932 02/19/2017 ([id number]) 78719 EST. P ATIENT, LEVEL IV Diagnosis: Slow transit constipation[ICD10: K59.01] Diagnosis: Gastro-esophageal reflux disease without esophagitis[ICD10: K21.9] Diagnosis: Essential (primary) hypertension[ICD10: I10] Karmen Ash MD, [facility] CPT-4: 08060 01/21/2017 ([id number]) 80055 EST. P ATIENT, LEVEL IV Diagnosis: Type 2 diabetes mellitus with hyperglycemia[ICD10: E11.65] Diagnosis: Vitamin D deficiency, unspecified[ICD10: E55.9] Diagnosis: Essential (primary) hypertension[ICD10: I10] Diagnosis: Chronic obstructive pulmonary disease, unspecified[ICD10: J44.9] Karmen Ash MD, [facility] CPT-4: 99174 12/20/2016 ([id number]) 41015 EST. P ATIENT, LEVEL IV Diagnosis: Type 2 diabetes mellitus with hyperglycemia[ICD10: E11.65] Diagnosis: Essential (primary) hypertension[ICD10: I10] Diagnosis: Mixed hyperlipidemia[ICD10: E78.2] Diagnosis: Vitamin D deficiency, unspecified[ICD10: E55.9] Karmen Ash MD, [facility] CPT-4: 22003 08/23/2016 ([id number]) 05033 EST. P ATIENT, LEVEL IV Diagnosis: Type 2 diabetes mellitus with hyperglycemia[ICD10: E11.65] Diagnosis: Essential (primary) hypertension[ICD10: I10] Diagnosis: Chronic obstructive pulmonary disease, unspecified[ICD10: J44.9] Karmen Ash MD, [facility] CPT-4: 98693 05/22/2016 ([id number]) 75661 EST. P ATIENT, LEVEL III Diagnosis: Dysuria[ICD10: R30.0] Diagnosis: Essential (primary) hypertension[ICD10: I10] Karmen Ash MD, [facility] CPT-4: 07806 02/24/2016 ([id number]) 45842 EST. P ATIENT, LEVEL IV Diagnosis: Gastro-esophageal reflux disease without esophagitis[ICD10: K21.9] Diagnosis: Slow transit constipation[ICD10: K59.01] Diagnosis: Type 2 diabetes mellitus with hyperglycemia[ICD10: E11.65] Karmen Ash MD, [facility] CPT-4: 54994 01/27/2016 ([id number]) 98531 EST. P ATIENT, LEVEL IV Diagnosis: Essential (primary) hypertension[ICD10: I10] Diagnosis: Type 2 diabetes mellitus with hyperglycemia[ICD10: E11.65] Diagnosis: Vitamin D deficiency, unspecified[ICD10: E55.9] Diagnosis: Chronic obstructive pulmonary disease, unspecified[ICD10: J44.9] Diagnosis: Mixed hyperlipidemia[ICD10: E78.2] Diagnosis: Tobacco use[ICD10: Z72.0] Karmen Ash MD, [facility] CPT- 4: 65383 11/25/2015 ([id number]) 39470 EST. P ATIENT, LEVEL IV Diagnosis: Type 2 diabetes mellitus with hyperglycemia[ICD10: E11.65] Diagnosis: Essential (primary) hypertension[ICD10: I10] Diagnosis: Vitamin D deficiency, unspecified[ICD10: E55.9] Karmen Ash MD, [facility] CPT-4: 72176 07/28/2015 ([id number]) 34429 EST. P ATIENT, LEVEL III Diagnosis: Type 2 diabetes mellitus with hyperglycemia[ICD10: E11.65] Diagnosis: Essential (primary) hypertension[ICD10: I10] Violeta Ash MD, [facility] CPT-4: 33958 05/26/2015 ([id number]) 00590 EST. P ATIENT, LEVEL III Diagnosis: DIABETES TYPE II[ICD9: 250.00] Diagnosis: COPD (chronic obstructive pulmonary disease)[ICD9: 496] Diagnosis: ESSENTIAL HYPERTENSION[ICD9: 401.9] Diagnosis: Cough[ICD9: 786.2] Violeta Ash MD, [facility] CPT-4: 59333 05/06/2015 ([id number]) 19086 EST. P ATIENT, LEVEL III Diagnosis: COPD (chronic obstructive pulmonary disease)[ICD9: 496] Diagnosis: DIABETES TYPE II[ICD9: 250.00] Diagnosis: Muscle ache[ICD9: 729.1] Karmen Ash MD, [facility] CPT- 4: 78619 04/25/2015 ([id number]) 98832 EST. P ATIENT, LEVEL III Diagnosis: ACTINIC KERATOSIS[ICD9: 702.0] Diagnosis: COPD (chronic obstructive pulmonary disease)[ICD9: 496] Diagnosis: DIABETES TYPE II[ICD9: 250.00] Diagnosis: ACUTE URI[ICD9: 465.9] Violeta Ash MD, [facility] CPT-4: 20970 04/12/2015 ([id number]) 15817 EST. P ATIENT, LEVEL III Diagnosis: DIABETES TYPE II[ICD9: 250.00] Violeta Ash MD, [facility] CPT-4: 40047 03/24/2015 ([id number]) 08971 EST. P ATIENT, LEVEL IV Diagnosis: DIABETES TYPE II[ICD9: 250.00] Diagnosis: Hypoglycemia[ICD9: 251.2] Diagnosis: Skin texture changes[ICD9: 782.8] Violeta Ash MD, [facility] CPT-4: 95925 03/07/2015 ([id number]) 81009 EST. P ATIENT, LEVEL IV Diagnosis: COPD (chronic obstructive pulmonary disease)[ICD9: 496] Diagnosis: Fatigue[ICD9: 780.79] Diagnosis: Insulin dependent diabetes mellitus[ICD9: 250.00] Diagnosis: Unsteady gait[ICD9: 781.2] Maame Ash MD, [facility] CPT-4: 71259 02/17/2015 ([id number]) 70745 EST. P ATIENT, LEVEL IV Diagnosis: BPPV (benign paroxysmal positional vertigo)[ICD9: 386.11] Diagnosis: Impacted cerumen[ICD9: 380.4] Diagnosis: ESSENTIAL HYPERTENSION[ICD9: 401.9] Diagnosis: Insulin dependent diabetes mellitus[ICD9: 250.00] Karmen Ash MD, [facility] CPT-4: 04708 12/23/2014 ([id number]) OFFICE VISI , BANNER - LEVEL 4 Diagnosis: Insulin dependent diabetes mellitus[ICD9: 250.00] Diagnosis: BPPV (benign paroxysmal positional vertigo)[ICD9: 386.11] Diagnosis: COPD (chronic obstructive pulmonary disease)[ICD9: 496] Diagnosis: Tobacco abuse[ICD9: 305.1] Diagnosis: Osteoarthritis[ICD9: 715.90] Karmen Ash MD, [facility] CPT- 4: 45165 12/09/2014 Plan of Care Planned Activity Notes [...] as directed 12/02/2018 Appointment: Karmen Espinal WPtel: [address] [place], [place] [phone] (30 min) Complex 12/02/2018 Patient Education: Patient Medication Summary Completed 12/02/2018 Patient Education: Diabetes Completed 12/02/2018 Appointment: Injection 11/18/2018 Patient Education: Patient Medication Summary Completed 11/18/2018 Appointment: Injection 11/04/2018 Patient Education: Patient Medication Summary Completed 11/04/2018 Appointment: Karmen Espinal WPtel: [address] [place], [place] [phone] (30 min) Complex 10/21/2018 Visit Plan: Orthostatic [...] a walker 10/17/2018 Appointment: Karmen Espinal WPtel: [phone] (30 min) Complex 10/17/2018 Patient Education: [...] medications. 09/02/2018 Appointment: [phone] [phone] (15 min) Moderate 09/02/2018 Patient Education: Patient [...] surrogate. 06/30/2018 Appointment: [facility] [phone] [facility] [phone] [facility] - Annual Wellness Visit 06/30/2018 Patient [...] the lesion, increase in pain. 06/06/2018 Appointment: EspinalDoyleKarmen WPtel: [phone] [phone] [place] (15 min) Moderate 06/06/2018 Patient Education: [...] months 04/04/2018 Appointment: [facility]inal [facility]el[facility] [phone] [facility] [phone] [place] (15 min) Moderate 04/04/2018 Patient Education: Patient Medication Summary Completed 04/04/2018 Care Plan: Cbc With Differential Pending 04/04/2018 Care Plan: Testosterone repeat in 2 months Pending 04/04/2018 Appointment: Karmen Espinal WPtel: [phone] [phone] (15 min) Moderate 03/25/2018 Visit Plan: Low back pain -history of kidney stone-UA negative today -increase fluids and call if pain does not resolve or if any worse. 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 01/30/2018 Appointment: Karmen Espinal WPtel: [phone] (15 min) Moderate 01/30/2018 Patient Education: Patient Medication Summary Completed 01/30/2018 Appointment: Karmen Espinal WPtel: [phone] [place] (15 min) Moderate 01/28/2018 Appointment: Injection 01/17/2018 Patient Education: Patient Medication Summary Completed 01/17/2018 Visit Plan: Cellulitis - start oral antibiotics as directed, return to clinic as previously directed, call for acute change in symptoms, worsening redness, warmth, discharge. 01/14/2018 Appointment: Karmen Espinal WPtel: [phone] [place] (10 min) Simple 01/14/2018 Patient Education: [...] less controlled. 01/13/2018 Appointment: Karmen Espinal WPtel: [phone] (15 min) Moderate 01/13/2018 Patient Education: Patient Medication Summary Completed 01/13/2018 Referral: Hugo Villatoro HPtel:[phone] [place] [address] Patient's informed. Referral info ned monroy. Completed [...] change in blood pressure readings at home. Aqnfsjqs-tbotsj-mvhyi to see Dr Villatoro Constipation-start linzess daily 11/19/2017 Appointment: Karmen Espinal WPtel: [phone] (30 min) Complex 11/19/2017 Patient Education: Patient Medication Summary Completed 11/19/2017 Care Plan: Referral Order bloating, nausea SNOMED-CT : [id number] Pending 11/19/2017 Visit Plan: Low back pain- [...] acute changes. 10/02/2017 Appointment: Brunilda Maravilla WPtel: [address] [place], [place] [phone] (15 min) Moderate 10/02/2017 Patient Education: Patient [...] controlled. 07/23/2017 Appointment: [facility] Espinal [facility]Ptel[facility] [phone] [phone] (30 min) Complex 07/23/2017 Patient Education: Patient [...] pack/year history 04/25/2017 Appointment: [facility] Espinal [facility]Ptel[phone] [phone] (30 min) Complex 04/25/2017 Patient Education: Patient [...] readings are starting to become less controlled. Tikccv-inkdqsd-qeslb labs 02/19/2017 Appointment: Karmen Espinal WPtel[phone] [facility] [phone] (30 min) Complex 02/19/2017 Patient Education: Patient [...] month 01/21/2017 Appointment: Karmen Espinal WPtel[facility] [phone] [facility] [phone] (30 min) Complex 01/21/2017 Patient Education: Patient Medication Summary Completed 01/21/2017 Patient Education: Smoking and Tobacco Addiction Completed 01/21/2017 Patient Education: Hypertension Completed 01/21/2017 Care Plan: Referral Order SNOMED-CT : [id number] Pending 01/21/2017 Visit Plan: Diabetes Mellitus - [...] changes. 12/20/2016 Appointment: Karmen Espinal WPtel: [phone] [phone] (30 min) Complex 12/20/2016 Patient Education: Patient Medication Summary Completed 12/20/2016 Patient Education: Smoking and Tobacco Addiction Completed 12/20/2016 Patient Education: Hypertension Completed 12/20/2016 Appointment: Karmen Espinal WPtel: [phone] (30 min) Complex 09/06/2016 Visit Plan: Diabetes Mellitus - izzy traore [...] d level 08/23/2016 Appointment: Karmen Espinal WPtel: [phone] [phone] (30 min) Complex 08/23/2016 Patient Education: [...] acute changes. 05/22/2016 Appointment: Karmen Espinal WPtel: [facility] [phone] (30 min) Complex 05/22/2016 Patient Education: Patient Medication Summary Completed 05/22/2016 Patient Education: Smoking and Tobacco Addiction Completed 05/22/2016 Care Plan: Cbc With Differential Ordered 05/22/2016 Care Plan: %Hba1C LOIN C : 22877-5 Ordered 05/22/2016 Care Plan: Tsh Ordered 05/22/2016 [...] update 02/24/2016 Appointment: Karmen Espinal WPtel: [phone] [facility] [phone] (30 min) Complex 02/24/2016 Patient Education: Patient [...] regimen. 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 Zjqswajr-nioeojjt-KJIF SIMVASTATIN X 2 WEEKS AND CALL WITH [...] Care Plan: COMPLETE CBC AUTOMATED LOINC : 09037-2 Ordered 03/24/2015 Visit Plan: Diabetes Mellitus - [...] for removal. 03/07/2015 Appointment: Violeta Ash WPtel: [address] [place], [place] [phone] (15 min) Moderate 03/07/2015 Patient Education: Patient [...] hearing. The wax was removed by the [facility] ctitioner due to the wax being [...] Care Plan: COMPLETE CBC AUTOMATED LOINC : 92210-0 Ordered 12/23/2014 Visit Plan: BPPV - Benign [...] next appt 12/09/2014 Appointment: Karmen Espinal WPtel: [address] [place], [place] [phone] [place] ([place]) New Patient 12/09/2014 Patient Education: Patient Medication Summary Completed 12/09/2014 Patient Education: .Amazing charts Parox ysmal positional vertigo Completed 12/09/2014 Patient Education: Smoking and Tobacco Addiction Completed 12/09/2014 Referral: Hugo Villatoro HPtel:[phone] [place], [place] [phone] Referral Appointment Requested Referral: Luis Donohue [...] readings are starting to become less controlled. Ffcjjw-idnyydj-bbaqb labs . COPD -recent pneum onia-symptoms have [...] change in symptoms, worsening redness, warmth, discharge. decrease glipizide t o 5mg twice daily [...] change in blood pressure readings at home. Nwbmlvid-wshkqc-ztluu to see Dr Villatoro Constipation-start linzess daily [...] POTENTIAL SIDE EFFECTS AND WORSENING OF SYMPTOMS. Esemgnar-vbmjiirc-BYBM SIMVASTATIN X 2 WEEKS AND CALL WITH [...] use-schedule low dose CT chest-60 pack/year history MELATONIN FOR SLEEP -START WITH 3MG AT [...]
--- OUTSIDE RECORDS SUMMARY | 2020-03-29 08:22 | XMS REPORT | CCD ---
Author Author Dick Espinal Organization Violeta Ash MD, [facility] Address [address] [place] [address] Phone Care Team Providers Care Draughtsman Name Role Phone PP Unavailable CCM Unavailable Summary Purpose Interface Exchange Insurance Providers Payer name Policy type / Coverage type Covered alliance party ID Effective Begin Date Effective End Date WPS Medicare Part B Medicare Part B [id number] Unknown Unknown [employer] Medic[employer] e Part B [id number] Unknown Unkn own Family history Father Diagnosis Age At Onset Cancer Unknown Mother Diagnosis Age At Onset Cancer Unknown Social History Social History Element Codes Description Effective Dates Marital status Unknown M arried 12/09/2014 Employment Unknown Retir ed 12/09/[address]: 71187679 Currently smokes tobacco 12/09/2014 Number of years using tobacco Unknown > 50 12/09/2014 Number of cigarettes/day Unknown 30 (Pack and a half) 12/09/[address]: 902357788 Never drinks alcohol 12/09/2014 Allergies, Adverse Reactions, Alerts Allergies, Adverse Reactions, Alerts data not found Past Medical History Illness Codes Condition Status Onset Date Resolved Date Anemia, unspecified ICD- 9: 285.9 ICD-10: D64.9 Active 05/22/2016 Unknown Essential (primary) hypertension ICD-9: 401.9 ICD-10: I10 Active 08/22/2016 Unknown Type 2 diabetes kadi itus with hyperglycemia ICD-9: 250.00 ICD-10: E11.65 Active 08/22/2016 Unknown Gastro-esophageal re flux disease without esophagitis ICD-9: 530.81 ICD-10: K21.9 Active 01/26/2016 Unknown Slow transit constip ation ICD-9: 564.01 ICD-10: K59.01 Active 01/26/2016 Unknown Chronic obstructive pulmonary disease, unspecified ICD-9: 496 ICD-10: J44.9 Active 05/21/2016 Unknown Vitamin D deficiency , unspecified ICD-9: 268.9 ICD-10: E55.9 Active 08/22/2016 Unknown Mixed hyperlipidemia ICD-9: 272.2 ICD-10: E78.2 Active 08/22/2016 Unknown Encounter for immuni zation ICD-9: V04.81 ICD-10: Z23 Active 05/21/2016 Unknown Dysuria ICD-9: 788.1 ICD-10: R30.0 Active 02/23/2016 Unknown Tobacco use ICD-9: 305.1 ICD-10: Z72.0 [...] ICD- 9: 285.9 ICD-10: D64.9 05/22/2016 Active Essential (primary) hypertension ICD-9: 401.9 ICD-10: I10 08/22/2016 Active Type 2 diabetes kadi itus with hyperglycemia ICD-9: 250.00 ICD-10: E11.65 08/22/2016 Active Gastro-esophageal re flux disease without esophagitis ICD-9: 530.81 ICD-10: K21.9 01/26/2016 Active Slow transit constip ation ICD-9: 564.01 ICD-10: K59.01 01/26/2016 Active Chronic obstructive pulmonary disease, unspecified ICD-9: 496 ICD-10: J44.9 05/21/2016 Active Vitamin D deficiency , unspecified ICD-9: 268.9 ICD-10: E55.9 08/22/2016 Active Mixed hyperlipidemia ICD-9: 272.2 ICD-10: E78.2 08/22/2016 Active Encounter for immuni zation ICD-9: V04.81 ICD-10: Z23 05/21/2016 Active Dysuria ICD-9: 788.1 ICD-10: R30.0 02/23/2016 Active Tobacco use ICD-9: 305.1 ICD-10: Z72.0 [...] 5 mg-linh taminophen 325 mg tablet RxNorm: 501519 1 Tablet(s) PO Q6-8H as needed 02/25/2017 03/29/2017 Active Protonix 40 mg table t,delayed release RxNorm: 599122 Tablet(s) Take 1 tabl et by mouth BID 02/25/2017 06/24/2017 Active Protonix 40 mg table t,delayed release RxNorm: 162777 Tablet(s) Take 1 tabl et by mouth BID 02/19/2017 02/18/2017 Inactive Protonix 40 mg table t,delayed release RxNorm: 133677 Tablet(s) Take 1 tabl et by mouth BID 02/19/2017 02/24/2017 Inactive lisinopril 10 mg tablet RxNorm: 607716 Take 1 tablet by mouth daily 01/29/2017 07/27/2017 Active - First Attempt Ref: [id number] hydrocodone 5 mg-linh taminophen 325 mg tablet RxNorm: 717224 1 Tablet(s) PO Q6-8H as needed 01/25/2017 02/24/2017 Inactive simvastatin 40 mg ta blet RxNorm: 885354 Tablet(s) Take 1 tabl et by mouth daily at bedtime 01/03/2017 12/28/2017 Active lisinopril 10 mg tablet RxNorm: 137319 Tablet(s) Take 1 tablet by mouth daily 01/03/2017 01/28/2017 In active Protonix 40 mg table t,delayed release RxNorm: 023431 Tablet(s) Take 1 tabl et by mouth daily 12/28/2016 02/18/2017 Inactive hydrocodone 5 mg-linh taminophen 325 mg tablet RxNorm: 554083 1 Tablet(s) PO Q6-8H as needed 12/26/2016 01/24/2017 Inactive Xanax 0.5 mg tablet RxNorm: 162136 1 Tablet(s) PO TID 12/12/2016 03/11/2017 Active simvastatin 40 mg ta blet RxNorm: 433754 Tablet(s) Take 1 tabl et by mouth daily at bedtime 11/30/2016 01/02/2017 Inactive simvastatin 40 mg ta blet RxNorm: 125606 Take 1 tablet by mout h daily at bedtime 11/29/2016 11/29/2016 In active - First Attempt Ref: [id number] Protonix 40 mg table t,delayed release RxNorm: 590222 Take 1 tablet by mout h daily 11/27/2016 12/27/2016 In active - First Attempt Ref: [id number] hydrocodone 5 mg-linh taminophen 325 mg tablet RxNorm: 132240 1 Tablet(s) PO Q6-8H as needed 11/26/2016 12/25/2016 Inactive hydrocodone 5 mg-linh taminophen 325 mg tablet RxNorm: 490157 1 Tablet(s) PO Q8 as needed 10/24/2016 11/25/2016 Inactive Xanax 0.5 mg tablet RxNorm: 642063 1 Tablet(s) PO TID 10/09/2016 12/25/2016 Inactive hydrocodone 5 mg-linh taminophen 325 mg tablet RxNorm: 301306 1 Tablet(s) PO Q8 as needed 09/27/2016 10/23/2016 Inactive lisinopril 10 mg tablet RxNorm: 676110 Take 1 tablet by mouth daily 09/25/2016 01/02/2017 Inactive - First Attempt Ref: [id number] Vitamin D2 50,000 un it capsule RxNorm: 977687 1 Capsule(s) PO QW 09/06/2016 No Stop Date Active hydrocodone 5 mg-linh taminophen 325 mg tablet RxNorm: 869599 1 Tablet(s) PO Q8 as needed 08/28/2016 09/26/2016 Inactive Touparadiseo SoloStar 300 unit/mL (1.5 mL) subcutaneous insulin pen RxNorm: 2481197 25 Unit(s) SQ QHS 08/23/2016 No Stop Date Active dosage increase hydrocodone 5 mg-linh taminophen 325 mg tablet RxNorm: 037091 1 Tablet(s) PO Q8 as needed 07/26/2016 08/27/2016 Inactive Protonix 40 mg table t,delayed release RxNorm: 899512 Take 1 tablet by mout h daily 07/24/2016 11/26/2016 In active - First Attempt Ref: [id number] hydrocodone 5 mg-linh taminophen 325 mg tablet RxNorm: 983776 1 Tablet(s) PO Q8 as needed 06/19/2016 07/21/2016 Inactive Yovana SoloStar 300 unit/mL (1.5 mL) subcutaneous insulin pen RxNorm: 5295119 32 Unit(s) SQ QHS 05/30/2016 08/22/2016 Inactive dosage increase hydrocodone 5 mg-linh taminophen 325 mg tablet RxNorm: 200524 1 Tablet(s) PO Q8 as needed 05/22/2016 06/18/2016 Inactive hydrocodone 5 mg-linh taminophen 325 mg tablet RxNorm: 698843 1 Tablet(s) PO Q8 as needed 04/18/2016 05/17/2016 Inactive Protonix 40 mg table t,delayed release RxNorm: 436925 Take 1 tablet by mout h daily 04/05/2016 07/03/2016 In active - Ref: [id number] metformin 500 mg tablet RxNorm: 966171 Take 1 tablet by mouth daily 04/04/2016 07/02/2016 Inactive - Ref: [id number] Xanax 0.5 mg tablet RxNorm: 941549 1 Tablet(s) PO TID 03/30/2016 09/25/2016 Inactive Xanax 0.5 mg tablet RxNorm: 896493 1 Tablet(s) PO TID 03/23/2016 12/25/2016 Inactive hydrocodone 5 mg-linh taminophen 325 mg tablet RxNorm: 108440 1 Tablet(s) PO Q8 as needed 03/06/2016 04/04/2016 Inactive Cipro 500 mg tablet RxNorm: 588337 1 Tablet(s) PO BID 02/24/2016 03/04/2016 Inactive Miralax 17 gram oral powder packet RxNorm: 424078 1 packet PO every oth er day 01/27/2016 No Stop Date Active hydrocodone 5 mg-linh taminophen 325 mg tablet RxNorm: 428005 1 Tablet(s) PO Q8 as needed 01/27/2016 02/25/2016 Inactive lisinopril 10 mg tablet RxNorm: 095592 1 Tablet(s) PO daily 01/12/2016 09/24/2016 Inactive simvastatin 40 mg ta blet RxNorm: 099450 1 Tablet(s) PO QHS 01/12/2016 11/28/2016 Inactive simvastatin 40 mg ta blet RxNorm: 952427 1 Tablet(s) PO QHS 01/11/2016 01/11/2016 Inactive lisinopril 10 mg tablet RxNorm: 559012 1 Tablet(s) PO daily 01/06/2016 01/11/2016 Inactive simvastatin 40 mg ta blet RxNorm: 724082 1 Tablet(s) PO daily 12/28/2015 01/10/2016 Inactive hydrocodone 5 mg-linh taminophen 325 mg tablet RxNorm: 501169 1 Tablet(s) PO Q8 as needed 12/27/2015 01/26/2016 Inactive Xanax 0.5 mg tablet RxNorm: 394651 1 Tablet(s) PO TID 11/30/2015 03/29/2016 Inactive meclizine 25 mg tablet RxNorm: 879821 1 Tablet(s) PO Q6 PRN TAKE ONE TABLET BY MOUTH EVERY 6 HOURS NEEDED 11/25/2015 02/22/2016 Inactive Toujeo SoloStar 300 unit/mL (1.5 mL) subcutaneous insulin pen RxNorm: 5186887 30 Unit(s) SQ QHS 11/25/2015 05/29/2016 Inactive dosage increase omeprazole 20 mg cap jacquelyn,delayed release RxNorm: 642417 1 Capsule(s) PO daily 10/06/2015 01/26/2016 In active Toujeo SoloStar 300 unit/mL (1.5 mL) subcutaneous insulin pen RxNorm: 3767254 35 Unit(s) SQ QHS 08/02/2015 11/24/2015 Inactive dosage increase Vitamin D2 50,000 un it capsule RxNorm: 933355 1 Capsule(s) PO QW 08/02/2015 09/05/2016 Inactive hydrocodone 5 mg-linh taminophen 325 mg tablet RxNorm: 719786 1 Tablet(s) PO Q8 as needed 07/11/2015 12/26/2015 Inactive Xanax 0.5 mg tablet RxNorm: 172673 1 Tablet(s) PO TID 06/30/2015 06/29/2015 Inactive Xanax 0.5 mg tablet RxNorm: 670175 1 Tablet(s) PO TID 06/30/2015 12/25/2015 Inactive hydrocodone 5 mg-linh taminophen 325 mg tablet RxNorm: 565431 1 Tablet(s) PO Q8 as needed 05/06/2015 07/10/2015 Inactive Symbicort 160 mcg-4. 5 mcg/actuation HFA aerosol inhaler RxNorm: 2163532 INH 04/25/2015 No Stop Date Active Levemir FlexTouch 10 0 unit/mL (3 mL) subcutaneous insulin pen RxNorm: 645209 30 Unit(s) SQ QHS 04/25/2015 11/24/2015 Inactive prednisone 20 mg tablet RxNorm: 506601 1 Tablet(s) PO BID 04/25/2015 04/29/2015 Inactive metformin 500 mg tablet RxNorm: 507973 1 Tablet(s) PO daily 04/25/2015 04/03/2016 Inactive amoxicillin 500 mg c apsule RxNorm: 855155 1 Capsule(s) PO TID 04/14/2015 04/13/2015 Inactive amoxicillin 500 mg c apsule RxNorm: 730960 1 Capsule(s) PO TID a nd recommend probiotic tid (otc) 04/14/2015 04/20/2015 Inactive Kenalog 40 mg/mL bartolome pension for injection RxNorm: 1070120 Milliliter(s) Inj 04/12/2015 04/12/2015 In active hydrocodone 5 mg-linh taminophen 325 mg tablet RxNorm: 958021 1 Tablet(s) PO Q8 as needed 03/30/2015 05/05/2015 Inactive Lantus 100 unit/mL s ubcutaneous solution RxNorm: 865404 25 Unit(s) SQ QPM 03/24/2015 04/25/2015 In active meclizine 25 mg tablet RxNorm: 473483 Tablet(s) TAKE ONE TABLET BY MOUTH EVERY 6 HOURS NEEDED 03/08/2015 04/06/2015 Inactive meclizine 25 mg tablet RxNorm: 103072 TAKE ONE TABLET BY MOUTH EVERY 6 HOURS A S NEEDED 02/25/2015 03/03/2015 Inactive Lantus 100 unit/mL s ubcutaneous solution RxNorm: 329782 20 Unit(s) SQ QPM 02/23/2015 03/23/2015 In active Lantus 100 unit/mL s ubcutaneous solution RxNorm: 496778 25 Unit(s) SQ QPM 02/23/2015 02/22/2015 In active hydrocodone 5 mg-linh taminophen 325 mg tablet RxNorm: 706012 1 Tablet(s) PO Q8 as needed 02/17/2015 03/29/2015 Inactive Xanax 0.5 mg tablet RxNorm: 250345 1 Tablet(s) PO TID 02/03/2015 06/29/2015 Inactive Lantus 100 unit/mL s ubcutaneous solution RxNorm: 282369 20 Unit(s) SQ QPM 12/29/2014 02/22/2015 In active Phenergan 12.5 mg re ctal suppository RxNorm: 901228 1 Suppository RTL Q6 PRN 12/23/2014 No Stop Date Active nausea Kenalog 40 mg/mL bartolome pension for injection RxNorm: 6542594 Milliliter(s) Inj 12/23/2014 12/23/2014 In active prednisone 20 mg tablet RxNorm: 494148 2 Tablet(s) PO daily 12/13/2014 12/17/2014 Inactive prednisone 20 mg tablet RxNorm: 842939 2 Tablet(s) PO daily 12/13/2014 12/12/2014 Inactive meclizine 25 mg tablet RxNorm: 608928 1 Tablet(s) PO Q6 PRN 12/09/2014 02/24/2015 Inactive hydrocodone 5 mg-linh taminophen 325 mg tablet RxNorm: 027823 1 Tablet(s) PO Q8 as needed 12/09/2014 02/16/2015 Inactive Vitamin B-12 1,000 m cg/mL oral drops RxNorm: 5467501 1 Milliliter(s) PO d aily No Start Date Active Alphagan P 0.1 % eye drops RxNorm: 789779 1 Drop(s) OPH BID No Start Date Active aspirin 325 mg table t,delayed release RxNorm: 082236 1 Tablet(s) PO daily No Start Date Active Tricor 145 mg tablet RxNorm: 620284 1 Tablet(s) PO daily No Start Date Active vitamin [id number] B1 oral liquid RxNorm: 1,000 Microgram(s) PO daily No Start Date Active atenolol 50 mg tablet RxNorm: 493357 1 Tablet(s) PO daily No Start Date Active Protonix 40 mg table t,delayed release RxNorm: 265363 1 Tablet(s) PO daily No Start Date 04/04/2016 Inactive glipizide 10 mg tablet RxNorm: 847977 1 Tablet(s) PO BID No Start Date 03/22/2015 Inactive Lantus 100 unit/mL s ubcutaneous solution RxNorm: 975699 15 Unit(s) SQ QPM No Start Date 12/28/2014 Inactive lisinopril 10 mg tablet RxNorm: 661912 1 Tablet(s) PO daily No Start Date 01/05/2016 Inactive Vitamin D2 50,000 un it capsule RxNorm: 533617 1 Capsule(s) PO QW No Start Date 08/01/2015 Inactive Toujeo SoloStar 300 unit/mL (1.5 mL) subcutaneous insulin pen RxNorm: 0485590 30 Unit(s) SQ QHS No Start Date 08/01/2015 Inactive simvastatin 40 mg ta blet RxNorm: 341502 1 Tablet(s) PO daily No Start Date 12/27/2015 Inactive hydrocodone 5 mg-linh taminophen 325 mg tablet RxNorm: 667499 1 Tablet(s) PO Q8 as needed No Start Date 12/08/2014 Inactive metformin 500 mg tablet RxNorm: 864223 1 Tablet(s) PO daily No Start Date 04/24/2015 Inactive omeprazole 20 mg cap jacquelyn,delayed release RxNorm: 795169 1 Capsule(s) PO daily No Start Date 10/05/2015 Inactive Flomax 0.4 mg capsule RxNorm: 134046 1 Capsule(s) PO daily No Start Date 03/23/2015 Inactive Medication Administered Medication Codes Instruc tions Start Date Status Kenalog 40 mg/mL suspension for injection RxNorm: 0465392 Milliliter 04/12/2015 No longer Active Kenalog 40 mg/mL suspension for injection RxNorm: 3660566 Milliliter 12/23/2014 No longer Active Immunizations Vaccine Codes Date Status Influenza CVX: 141 05/22 completed Assessments Condition Codes Effectiv e Dates Anemia, unspecified ICD-10: D64.9 ICD-9: 285.9 02/22/2017 Type 2 diabetes mellitus with hyperglycemia ICD-10: E11.65 ICD-9: 250.00 02/19/2017 Essential (primary) hypertension ICD -10: I10 ICD-9: 401.9 02/19/2017 Slow transit constipation ICD-10: K5 9.01 ICD-9: 564.01 01/21/2017 Gastro-esophageal reflux disease without esophagitis ICD-10: K21.9 ICD-9: 530.81 01/21/2017 Chronic obstructive pulmonary disease, unspecified ICD-10: J44.9 ICD-9: 496 12/20/2016 Vitamin D deficiency, unspecified IC D-10: E55.9 ICD-9: 268.9 12/20/2016 Mixed hyperlipidemia ICD-10: E78.2 ICD-9: 272.2 08/23/2016 Encounter for immunization ICD-10: Z 23 ICD-9: V04.81 05/22/2016 Dysuria ICD-10: R30.0 ICD-9: 788.1 02/24/2016 Tobacco use ICD-10: Z72.0 ICD-9: 305.1 11/25/2015 [...] For Visit Effective Dates Notes diabetes mellitus 02/19/2017 constipation 01/21/2017 ongoing diabetes [...] Code Item Item Code Result Date B12 Urp650 B12 >1500.00 pg/ml 02/22/2017 Cbc With Differential Ord2 WBC 8.52 K/ul 02/20/2017 Cbc With Differential Ord2 RBC 3.22 M/ul 02/20/2017 Cbc With Differential Ord2 HGB 11.5 g/dl 02/20/2017 Cbc With Differential Ord2 HCT 34.3 % 02/20/2017 Cbc With Differential Ord2 Neut% 51.3 % 02/20/2017 Cbc With Differential Ord2 Lymph% 37.4 % 02/20/2017 Cbc With Differential Ord2 MCV 106.5 fl 02/20/2017 Cbc With Differential Ord2 MCH 35.7 pg 02/20/2017 Cbc With Differential Ord2 [place]% 6.3 % 02/20/2017 Cbc With Differential Ord2 MCHC 33.5 pg 02/20/2017 Cbc With Differential Ord2 Eos% 4.6 % 02/20/2017 Cbc With Differential Ord2 Baso% 0.4 % 02/20/2017 Cbc With Differential Ord2 PLT 205 K/ul 02/20/2017 Cbc With Differential Ord2 Neut ABS# 4.37 K/ul 02/20/2017 Cbc With Differential Ord2 RDW 14.9 % 02/20/2017 Cbc With Differential Ord2 Lymph ABS# 3.19 K/ul 02/20/2017 Cbc With Differential Ord2 [place] ABS# 0.5 K/ul 02/20/2017 Cbc With Differential Ord2 Eos ABS# 0.4 K/ul 02/20/2017 Cbc With Differential Ord2 Baso ABS# 0.0 K/ul 02/20/2017 Comp Metabolic Qae411 NA 138 mEq/L 02/20/2017 Comp Metabolic Frc618 K 4.5 mEq/L 02/20/2017 Comp Metabolic Yvh823 CL 101 mEq/L 02/20/2017 Comp Metabolic Lzm127 CO2 31.0 mEq/L 02/20/2017 Comp Metabolic Lsv682 AN ION GAP 11 02/20/2017 Comp Metabolic Hsl025 GL UCOSE 120 mg/dL 02/20/2017 Comp Metabolic Xbd906 Cr eat 0.9 mg/dL 02/20/2017 Comp Metabolic Zzi853 eG FR 83 ml/min/1.73m2 02/20 Comp Metabolic Skp176 BUN 15 mg/dL 02/20/2017 Comp Metabolic Cnm844 B/ C Ratio 16.1 Ratio 02/20/2017 Comp Metabolic Vir496 CA LCIUM 9.1 mg/dL 02/20/2017 Comp Metabolic Qpg113 AL K PHOS 67 U/L 02/20/2017 Comp Metabolic Xzs890 T(SGOT) 15 U/L 02/20/2017 Comp Metabolic Dpz472 AL T(SGPT) 16 U/L 02/20/2017 Comp Metabolic Hyr417 BI LI T 0.5 mg/dL 02/20/2017 Comp Metabolic Eef858 AL BUMIN 4.0 g/dL 02/20/2017 Comp Metabolic Uyk322 TP RO 6.4 g/dL 02/20/2017 Comp Metabolic Ish999 GL OB 2.4 g/dL 02/20/2017 Comp Metabolic Apz952 A/ G Ratio 1.7 Ratio 02/20/2017 Comp Metabolic Arw401 Os mo 278 mOsmo 02/20/2017 Tsh Ord6 hTSH II 2.05 uIU/mL 02/20/2017 %Hba1C Zed377 % HbA1c 64433-6 7.6 % 02/20/2017 %Hba1C Kgb391 Gluc Ave 171 mg/dL 02/20/2017 Vitamin D 25 Oh Mck0458 VITAMIN D, 25 HYDROXY 44.40 ng/mL 12/21/2016 Comp Metabolic Bwz639 NA 131 mEq/L 12/21/2016 Comp Metabolic Mnw472 K 4.2 mEq/L 12/21/2016 Comp Metabolic Vep516 CL 97 mEq/L 12/21/2016 Comp Metabolic Hao722 CO2 27.0 mEq/L 12/21/2016 Comp Metabolic Rsb951 AN ION GAP 11 12/21/2016 Comp Metabolic Bhw224 GL UCOSE 266 mg/dL 12/21/2016 Comp Metabolic Yzq167 Cr eat 0.9 mg/dL 12/21/2016 Comp Metabolic Kqf002 eG FR 88 ml/min/1.73m2 12/21 Comp Metabolic Pyn396 BUN 12 mg/dL 12/21/2016 Comp Metabolic Wjx321 B/ C Ratio 13.6 Ratio 12/21/2016 Comp Metabolic Kws848 CA LCIUM 8.6 mg/dL 12/21/2016 Comp Metabolic Lfq074 AL K PHOS 69 U/L 12/21/2016 Comp Metabolic Bdw082 T(SGOT) 15 U/L 12/21/2016 Comp Metabolic Egd347 AL T(SGPT) 14 U/L 12/21/2016 Comp Metabolic Txn393 BI LI T 0.3 mg/dL 12/21/2016 Comp Metabolic Kxv767 AL BUMIN 3.7 g/dL 12/21/2016 Comp Metabolic Yht353 TP RO 5.9 g/dL 12/21/2016 Comp Metabolic Zjl759 GL OB 2.2 g/dL 12/21/2016 Comp Metabolic Jyk757 A/ G Ratio 1.7 Ratio 12/21/2016 Comp Metabolic Idv156 Os mo 272 mOsmo 12/21/2016 Cbc With Differential Ord2 WBC 5.19 K/ul 12/21/2016 Cbc With Differential Ord2 RBC 3.27 M/ul 12/21/2016 Cbc With Differential Ord2 HGB 11.3 g/dl 12/21/2016 Cbc With Differential Ord2 Neut% 49.3 % 12/21/2016 Cbc With Differential Ord2 HCT 33.0 % 12/21/2016 Cbc With Differential Ord2 MCV 100.9 fl 12/21/2016 Cbc With Differential Ord2 Lymph% 39.5 % 12/21/2016 Cbc With Differential Ord2 MCH 34.6 pg 12/21/2016 Cbc With Differential Ord2 [place]% 6.9 % 12/21/2016 Cbc With Differential Ord2 [...] 2.05 K/ul 12/21/2016 Cbc With Differential Ord2 [place] ABS# 0.4 K/ul 12/21/2016 Cbc With Differential Ord2 Eos ABS# 0.2 K/ul 12/21/2016 Cbc With Differential Ord2 Baso ABS# 0.0 K/ul 12/21/2016 Comp Metabolic Esh949 NA 138 mEq/L 09/03/2016 Comp Metabolic Ouo865 K 4.5 mEq/L 09/03/2016 Comp Metabolic Mrt764 CL 102 mEq/L 09/03/2016 Comp Metabolic Xbr606 CO2 30.0 mEq/L 09/03/2016 Comp Metabolic Cww902 AN ION GAP 11 09/03/2016 Comp Metabolic Kqg047 GL UCOSE 113 mg/dL 09/03/2016 Comp Metabolic Kuw116 Cr eat 1.0 mg/dL 09/03/2016 Comp Metabolic Dmb937 eG FR 81 ml/min/1.73m2 09/03 Comp Metabolic Cfl477 BUN 10 mg/dL 09/03/2016 Comp Metabolic Sld907 B/ C Ratio 10.5 Ratio 09/03/2016 Comp Metabolic Yrj721 CA LCIUM 9.1 mg/dL 09/03/2016 Comp Metabolic Jid647 AL K PHOS 71 U/L 09/03/2016 Comp Metabolic Eef795 T(SGOT) 18 U/L 09/03/2016 Comp Metabolic Keh894 AL T(SGPT) 17 U/L 09/03/2016 Comp Metabolic Ovs176 BI LI T 0.6 mg/dL 09/03/2016 Comp Metabolic Zgt240 AL BUMIN 4.1 g/dL 09/03/2016 Comp Metabolic Pvw249 TP RO 6.4 g/dL 09/03/2016 Comp Metabolic Iku395 GL OB 2.3 g/dL 09/03/2016 Comp Metabolic Jha409 A/ G Ratio 1.8 Ratio 09/03/2016 Comp Metabolic Qoo357 Os mo 276 mOsmo 09/03/2016 Vitamin D 25 Oh Plp9713 VITAMIN D, 25 HYDROXY 28.23 ng/mL 09/03/2016 Tsh Ord6 hTSH II 4.12 uIU/mL 09/03/2016 Cbc With Differential Ord2 WBC 8.06 K/ul 09/03/2016 Cbc With Differential Ord2 RBC 3.66 M/ul 09/03/2016 Cbc With Differential Ord2 HGB 12.6 g/dl 09/03/2016 Cbc With Differential Ord2 Neut% 44.6 % 09/03/2016 Cbc With Differential Ord2 HCT 37.3 % 09/03/2016 Cbc With Differential Ord2 Lymph% 41.4 % 09/03/2016 Cbc With Differential Ord2 MCV 101.9 fl 09/03/2016 Cbc With Differential Ord2 [place]% 8.9 % 09/03/2016 Cbc With Differential Ord2 MCH 34.4 pg 09/03/2016 Cbc With Differential Ord2 MCHC 33.8 pg 09/03/2016 Cbc With Differential Ord2 Eos% 5.0 % 09/03/2016 Cbc With Differential Ord2 Baso% 0.1 % 09/03/2016 Cbc With Differential Ord2 PLT 163 K/ul 09/03/2016 Cbc With Differential Ord2 RDW 13.6 % 09/03/2016 Cbc With Differential Ord2 Neut ABS# 3.59 K/ul 09/03/2016 Cbc With Differential Ord2 Lymph ABS# 3.34 K/ul 09/03/2016 Cbc With Differential Ord2 [place] ABS# 0.7 K/ul 09/03/2016 Cbc With Differential Ord2 Eos ABS# 0.4 K/ul 09/03/2016 Cbc With Differential Ord2 Baso ABS# 0.0 K/ul 09/03/2016 Lipid Ord30 CHOL 120 mg/dL 09/03/2016 Lipid Ord30 HDL 33.0 mg/dl 09/03/2016 Lipid Ord30 TRIG 161 mg/dL 09/03/2016 Lipid Ord30 LDL 55 mg/dL 09/03/2016 Lipid Ord30 C/HDL 3.6 Ratio 09/03/2016 %Hba1C Kmi341 % HbA1c 40730-3 7.5 % 09/03/2016 %Hba1C Cwt752 Gluc Ave 169 mg/dL 09/03/2016 Tsh Ord6 hTSH II 1.50 uIU/mL 05/23/2016 %Hba1C Qhg000 % HbA1c 29221-1 7.6 % 05/23/2016 %Hba1C Uoa443 Gluc Ave 171 mg/dL 05/23/2016 Comp Metabolic Rzj841 NA 135 mEq/L 05/23/2016 Comp Metabolic Dxs587 K 4.4 mEq/L 05/23/2016 Comp Metabolic Ixd690 CL 99 mEq/L 05/23/2016 Comp Metabolic Lvh193 CO2 28.0 mEq/L 05/23/2016 Comp Metabolic Pdf485 AN ION GAP 12 05/23/2016 Comp Metabolic Tkt886 GL UCOSE 257 mg/dL 05/23/2016 Comp Metabolic Oyy247 Cr eat 0.8 mg/dL 05/23/2016 Comp Metabolic Tnn467 eG FR 95 ml/min/1.73m2 05/23 Comp Metabolic Apc743 BUN 11 mg/dL 05/23/2016 Comp Metabolic Nuf386 B/ C Ratio 13.3 Ratio 05/23/2016 Comp Metabolic Tzg999 CA LCIUM 9.0 mg/dL 05/23/2016 Comp Metabolic Jis880 AL K PHOS 82 U/L 05/23/2016 Comp Metabolic Xbg542 T(SGOT) 21 U/L 05/23/2016 Comp Metabolic Xys357 AL T(SGPT) 20 U/L 05/23/2016 Comp Metabolic Hck685 BI LI T 0.3 mg/dL 05/23/2016 Comp Metabolic Otw693 AL BUMIN 4.0 g/dL 05/23/2016 Comp Metabolic Vbi699 TP RO 6.4 g/dL 05/23/2016 Comp Metabolic Ucl773 GL OB 2.4 g/dL 05/23/2016 Comp Metabolic Uva859 A/ G Ratio 1.6 Ratio 05/23/2016 Comp Metabolic Qnv065 Os mo 278 mOsmo 05/23/2016 Cbc With Differential Ord2 WBC 6.39 K/ul 05/23/2016 Cbc With Differential Ord2 RBC 3.48 M/ul 05/23/2016 Cbc With Differential Ord2 HGB 12.0 g/dl 05/23/2016 Cbc With Differential Ord2 Neut% 52.8 % 05/23/2016 Cbc With Differential Ord2 HCT 35.5 % 05/23/2016 Cbc With Differential Ord2 Lymph% 37.2 % 05/23/2016 Cbc With Differential Ord2 MCV 102.0 fl 05/23/2016 Cbc With Differential Ord2 MCH 34.5 pg 05/23/2016 Cbc With Differential Ord2 [place]% 6.1 % 05/23/2016 Cbc With Differential Ord2 MCHC 33.8 pg 05/23/2016 Cbc With Differential Ord2 Eos% 3.4 % 05/23/2016 Cbc With Differential Ord2 Baso% 0.5 % 05/23/2016 Cbc With Differential Ord2 PLT 192 K/ul 05/23/2016 Cbc With Differential Ord2 RDW 13.5 % 05/23/2016 Cbc With Differential Ord2 Neut ABS# 3.37 K/ul 05/23/2016 Cbc With Differential Ord2 Lymph ABS# 2.38 K/ul 05/23/2016 Cbc With Differential Ord2 [place] ABS# 0.4 K/ul 05/23/2016 Cbc With Differential Ord2 Eos ABS# 0.2 K/ul 05/23/2016 Cbc With Differential Ord2 Baso ABS# 0.0 K/ul 05/23/2016 B12 Igw401 B12 597.00 pg/ml 05/23/2016 Metabolic Ord15 NA [...] 0.92 uIU/mL 07/29/2015 Vitamin D 25 Oh Sjf8495 VITAMIN D, 25 HYDROXY 26.93 ng/mL 07/29/2015 %Hba1C Vhn558 % HbA1c 50908-2 8.8 % 07/29/2015 %Hba1C Mqm312 Gluc Ave 206 mg/dL 07/29/2015 Cbc With [...] Ord2 RDW 14.9 % 07/29/2015 Comp Metabolic Jfc297 NA 138 mEq/L 07/29/2015 Comp Metabolic Pkx418 K 4.4 mEq/L 07/29/2015 Comp Metabolic Ghv244 CL 102 mEq/L 07/29/2015 Comp Metabolic Ehq841 CO2 28.0 mEq/L 07/29/2015 Comp Metabolic Oaa394 AN ION GAP 12 07/29/2015 Comp Metabolic Ejz697 GL UCOSE 261 mg/dL 07/29/2015 Comp Metabolic Wbd356 Cr eat 1.0 mg/dL 07/29/2015 Comp Metabolic Inc383 eG FR 77 ml/min/1.73m2 07/29 Comp Metabolic Ufk610 BUN 13 mg/dL 07/29/2015 Comp Metabolic Tsh463 B/ C Ratio 13.0 Ratio 07/29/2015 Comp Metabolic Ibd673 CA LCIUM 9.1 mg/dL 07/29/2015 Comp Metabolic Dkl596 AL K PHOS 64 U/L 07/29/2015 Comp Metabolic Ssv012 T(SGOT) 20 U/L 07/29/2015 Comp Metabolic Phv613 AL T(SGPT) 22 U/L 07/29/2015 Comp Metabolic Nxm531 BI LI T 0.4 mg/dL 07/29/2015 Comp Metabolic Rau662 AL BUMIN 4.0 g/dL 07/29/2015 Comp Metabolic Wrn196 TP RO 6.1 g/dL 07/29/2015 Comp Metabolic Wey345 GL OB 2.1 g/dL 07/29/2015 Comp Metabolic Qhb824 A/ G Ratio 1.9 Ratio 07/29/2015 Comp Metabolic Fsx522 Os mo 285 mOsmo 07/29/2015 Cbc With [...] Ord2 RDW 13.1 % 05/06/2015 Comp Metabolic Oft113 NA 134 mEq/L 05/06/2015 Comp Metabolic Hep442 K 4.4 mEq/L 05/06/2015 Comp Metabolic Rrx241 CL 98 mEq/L 05/06/2015 Comp Metabolic Ocm165 CO2 29.0 mEq/L 05/06/2015 Comp Metabolic Zax508 AN ION GAP 11 05/06/2015 Comp Metabolic Wvu376 GL UCOSE 321 mg/dL 05/06/2015 Comp Metabolic Pmk986 Cr eat 1.0 mg/dL 05/06/2015 Comp Metabolic Pxv525 eG FR 78 ml/min/1.73m2 05/06 Comp Metabolic Qgv333 BUN 20 mg/dL 05/06/2015 Comp Metabolic Gjn648 B/ C Ratio 20.4 Ratio 05/06/2015 Comp Metabolic Qnq888 CA LCIUM 9.5 mg/dL 05/06/2015 Comp Metabolic Vxw824 AL K PHOS 62 U/L 05/06/2015 Comp Metabolic Psg373 T(SGOT) 21 U/L 05/06/2015 Comp Metabolic Wcd842 AL T(SGPT) 37 U/L 05/06/2015 Comp Metabolic Pqa990 BI LI T 0.4 mg/dL 05/06/2015 Comp Metabolic Ixu351 AL BUMIN 3.8 g/dL 05/06/2015 Comp Metabolic Wkd591 TP RO 6.1 g/dL 05/06/2015 Comp Metabolic Xaj710 GL OB 2.3 g/dL 05/06/2015 Comp Metabolic Yrl507 A/ G Ratio 1.7 Ratio 05/06/2015 Comp Metabolic Snp653 Os mo 283 mOsmo 05/06/2015 Tsh Ord6 hTSH II 1.65 uIU/mL 02/18/2015 B12 Vqb547 B12 605.00 pg/ml 02/18/2015 %Hba1C Ofs058 % HbA1c 96122-2 8.3 % 02/18/2015 %Hba1C Iha333 Gluc Ave 192 mg/dL 02/18/2015 Cbc With [...] Ord2 RDW 13.9 % 02/17/2015 Comp Metabolic Xta031 NA 137 mEq/L 02/17/2015 Comp Metabolic Yia783 K 4.4 mEq/L 02/17/2015 Comp Metabolic Ywz550 CL 100 mEq/L 02/17/2015 Comp Metabolic Ejm906 CO2 31.0 mEq/L 02/17/2015 Comp Metabolic Trw211 AN ION GAP 10 02/17/2015 Comp Metabolic Ink293 GL UCOSE 307 mg/dL 02/17/2015 Comp Metabolic Fyo370 Cr eat 1.0 mg/dL 02/17/2015 Comp Metabolic Nmh579 eG FR 74 ml/min/1.73m2 02/17 Comp Metabolic Xmq611 BUN 22 mg/dL 02/17/2015 Comp Metabolic Cix932 B/ C Ratio 21.4 Ratio 02/17/2015 Comp Metabolic Hqw678 CA LCIUM 9.5 mg/dL 02/17/2015 Comp Metabolic Xqx479 AL K PHOS 78 U/L 02/17/2015 Comp Metabolic Enx704 T(SGOT) 18 U/L 02/17/2015 Comp Metabolic Nuk890 AL T(SGPT) 32 U/L 02/17/2015 Comp Metabolic Nei259 BI LI T 0.5 mg/dL 02/17/2015 Comp Metabolic Thw159 AL BUMIN 4.3 g/dL 02/17/2015 Comp Metabolic Tqh461 TP RO 6.7 g/dL 02/17/2015 Comp Metabolic Cqh257 GL OB 2.4 g/dL 02/17/2015 Comp Metabolic Fdn488 A/ G Ratio 1.8 Ratio 02/17/2015 Comp Metabolic Aoo615 Os mo 289 mOsmo 02/17/2015 Review of Systems System Result Effective Dates Constitutional No recent illness 02/19/2017 Constitutional No [...] inspection of skin Location: face 03/07/2015 on congregational, cheeks,actinic keratosis with irritation on left cheek - left congregational - croptherapy on these two lesions - [...] intact 12/09/2014 None Procedures Procedure Codes Date ADMIN INFLUENZA VIRU S VAC CPT-4: Y3540Agiqoej 05/22/2016 FLU VACC 4 TELLY 3 YRS PLUS IM Formatting Model/CDA Sections, Assigned to/Angela Clemons SNOMED CT: 61468306 CPT-4: 52369Tbunsdl 05/22/2016 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-[address]: 047748846 CPT-4: T0910Wbvndbp 11/25/2015 URINALYSIS NONAUTO W /O SCOPE CPT-4: 13715Gqhpwjc 05/09/2015 TRIAMCINOLONE ACET I [place] NOS CPT-4: B3935Fkstxeg 04/12/2015 DESTRUCT PREMALG LES ION CPT-4: 01076Fmzflvj 03/07/2015 DESTRUCT PREMALG LES 2-14 CPT-4: 83964Higpqlw 03/07/2015 REMOVE IMPACTED EAR WAX UNI CPT-4: 23332Sqobvbs 12/31/2014 THER/PROPH/DIAG INJ SC/IM CPT-4: 09329Difwdcy 12/23/2014 TRIAMCINOLONE ACET I [place] NOS CPT-4: B8897Zcdjpzm 12/23/2014 Vital Signs Date Vital 02/19/2017 Blood Pressure 1: 138/64 Code: 8480-6 BMI: 21.3 Code: 63888-6 Heart Rate 1: 52 bpm Height: 5'11" SpO2: 96% Weight: 152 lbs 8 oz 01/21/2017 Blood Pressure 1: 160/68 Code: 8480-6 BMI: 21.3 Code: 47610-7 Heart Rate 1: 62 bpm Height: 5'11" SpO2: 96% Weight: 153 lbs 12/20/2016 Blood Pressure 1: 124/66 Code: 8480-6 BMI: 21.5 Code: 49316-7 Height: 5'11" Weight: 154 lbs 08/23/2016 Blood Pressure 1: 142/52 Code: 8480-6 BMI: 21.2 Code: 51987-0 Heart Rate 1: 54 bpm Height: 5'11" SpO2: 96% Weight: 152 lbs 05/22/2016 Blood Pressure 1: 130/76 Code: 8480-6 BMI: 21.5 Code: 77529-3 Heart Rate 1: 78 bpm Height: 5'11" SpO2: 92% Weight: 154 lbs 02/24/2016 Blood Pressure 1: 128/80 Code: 8480-6 BMI: 21.2 Code: 35646-5 Heart Rate 1: 74 bpm Height: 5'11" SpO2: 96% Weight: 152 lbs 01/27/2016 Blood Pressure 1: 144/60 Code: 8480-6 BMI: 21.2 Code: 12547-9 Heart Rate 1: 74 bpm Height: 5'11" SpO2: 97% Weight: 152 lbs 11/25/2015 Blood Pressure 1: 110/52 Code: 8480-6 BMI: 21.9 Code: 42952-7 Heart Rate 1: 65 bpm Height: 5'11" SpO2: 92% Weight: 157 lbs 07/28/2015 Blood Pressure 1: 138/62 Code: 8480-6 BMI: 21.8 Code: 66982-8 Heart Rate 1: 63 bpm Height: 5'11" SpO2: 91% Weight: 156 lbs 05/26/2015 Blood Pressure 1: 120/58 Code: 8480-6 BMI: 21.5 Code: 06489-4 Heart Rate 1: 99 bpm Height: 5'11" SpO2: 96% Weight: 154 lbs 05/06/2015 Blood Pressure 1: 120/58 Code: 8480-6 BMI: 21.2 Code: 00058-7 Heart Rate 1: 66 bpm Height: 5'11" SpO2: 96% Weight: 152 lbs 04/25/2015 Blood Pressure 1: 136/62 Code: 8480-6 BMI: 21.2 Code: 85871-0 Heart Rate 1: 63 bpm Height: 5'11" SpO2: 97% Weight: 152 lbs 04/12/2015 Blood Pressure 1: 160/58 Code: 8480-6 BMI: 21.6 Code: 39528-7 Heart Rate 1: 62 bpm Height: 5'11" Weight: 155 lbs 03/24/2015 Blood Pressure 1: 138/68 Code: 8480-6 BMI: 22.0 Code: 44486-7 Heart Rate 1: 65 bpm Height: 5'11" SpO2: 96% Weight: 158 lbs 03/07/2015 Blood Pressure 1: 116/52 Code: 8480-6 BMI: 22.2 Code: 06140-9 Heart Rate 1: 64 bpm Height: 5'11" SpO2: 97% Weight: 159 lbs 02/17/2015 Blood Pressure 1: 148/58 Code: 8480-6 BMI: 21.3 Code: 54601-6 Heart Rate 1: 63 bpm Height: 5'11" SpO2: 97% Weight: 153 lbs 12/31/2014 Blood Pressure 1: 100/60 Code: 8480-6 BMI: 21.8 Code: 21209-9 Heart Rate 1: 68 bpm Height: 5'11" Weight: 156 lbs 12/23/2014 Blood Pressure 1: 148/64 Code: 8480-6 BMI: 21.9 Code: 38382-5 Heart Rate 1: 64 bpm Height: 5'11" Weight: 157 lbs 12/09/2014 Blood Pressure 1: 152/62 Code: 8480-6 Heart Rate 1: 58 bpm SpO2: 98% Weight: 159 lbs Functional Status No Functional Status data History of Present Illness Symptom Name Status Resu lt Effective Date Notes diabetes mellitus Quality insulin dependent 02/19/2017 None [...] Encounters Encounter Performer Loca tion Codes Date ([id number]) 23663 EST. P ATIENT, LEVEL IV Diagnosis: Type 2 diabetes mellitus with hyperglycemia[ICD10: E11.65] Diagnosis: Essential (primary) hypertension[ICD10: I10] Diagnosis: Anemia, unspecified[ICD10: D64.9] Karmen Ash MD, [facility] CPT- 4: 45953 02/19/2017 ([id number]) 78564 EST. P ATIENT, LEVEL IV Diagnosis: Slow transit constipation[ICD10: K59.01] Diagnosis: Gastro-esophageal reflux disease without esophagitis[ICD10: K21.9] Diagnosis: Essential (primary) hypertension[ICD10: I10] Karmen Ash MD, [facility] CPT-4: 29844 01/21/2017 ([id number]) 19836 EST. P ATIENT, LEVEL IV Diagnosis: Type 2 diabetes mellitus with hyperglycemia[ICD10: E11.65] Diagnosis: Vitamin D deficiency, unspecified[ICD10: E55.9] Diagnosis: Essential (primary) hypertension[ICD10: I10] Diagnosis: Chronic obstructive pulmonary disease, unspecified[ICD10: J44.9] Karmen Ash MD, [facility] CPT-4: 43582 12/20/2016 ([id number]) 04956 EST. P ATIENT, LEVEL IV Diagnosis: Type 2 diabetes mellitus with hyperglycemia[ICD10: E11.65] Diagnosis: Essential (primary) hypertension[ICD10: I10] Diagnosis: Mixed hyperlipidemia[ICD10: E78.2] Diagnosis: Vitamin D deficiency, unspecified[ICD10: E55.9] Karmen Ash MD, [facility] CPT-4: 09250 08/23/2016 ([id number]) 02372 EST. P ATIENT, LEVEL IV Diagnosis: Type 2 diabetes mellitus with hyperglycemia[ICD10: E11.65] Diagnosis: Essential (primary) hypertension[ICD10: I10] Diagnosis: Chronic obstructive pulmonary disease, unspecified[ICD10: J44.9] Karmen Ash MD, [facility] CPT-4: 56268 05/22/2016 ([id number]) 08044 EST. P ATIENT, LEVEL III Diagnosis: Dysuria[ICD10: R30.0] Diagnosis: Essential (primary) hypertension[ICD10: I10] Karmen Ash MD, [facility] CPT-4: 01894 02/24/2016 ([id number]) 56733 EST. P ATIENT, LEVEL IV Diagnosis: Gastro-esophageal reflux disease without esophagitis[ICD10: K21.9] Diagnosis: Slow transit constipation[ICD10: K59.01] Diagnosis: Type 2 diabetes mellitus with hyperglycemia[ICD10: E11.65] Karmen Ash MD, [facility] CPT-4: 84583 01/27/2016 ([id number]) 06027 EST. P ATIENT, LEVEL IV Diagnosis: Essential (primary) hypertension[ICD10: I10] Diagnosis: Type 2 diabetes mellitus with hyperglycemia[ICD10: E11.65] Diagnosis: Vitamin D deficiency, unspecified[ICD10: E55.9] Diagnosis: Chronic obstructive pulmonary disease, unspecified[ICD10: J44.9] Diagnosis: Mixed hyperlipidemia[ICD10: E78.2] Diagnosis: Tobacco use[ICD10: Z72.0] Karmen Ash MD, [facility] CPT- 4: 83219 11/25/2015 ([id number]) 09653 EST. P ATIENT, LEVEL IV Diagnosis: Type 2 diabetes mellitus with hyperglycemia[ICD10: E11.65] Diagnosis: Essential (primary) hypertension[ICD10: I10] Diagnosis: Vitamin D deficiency, unspecified[ICD10: E55.9] Karmen Ash MD, [facility] CPT-4: 06951 07/28/2015 ([id number]) 33647 EST. P ATIENT, LEVEL III Diagnosis: Type 2 diabetes mellitus with hyperglycemia[ICD10: E11.65] Diagnosis: Essential (primary) hypertension[ICD10: I10] Violeta Ash MD, [facility] CPT-4: 73422 05/26/2015 ([id number]) 05158 EST. P ATIENT, LEVEL III Diagnosis: DIABETES TYPE II[ICD9: 250.00] Diagnosis: COPD (chronic obstructive pulmonary disease)[ICD9: 496] Diagnosis: ESSENTIAL HYPERTENSION[ICD9: 401.9] Diagnosis: Cough[ICD9: 786.2] Violeta Ash MD, [facility] CPT-4: 30178 05/06/2015 ([id number]) 38831 EST. P ATIENT, LEVEL III Diagnosis: COPD (chronic obstructive pulmonary disease)[ICD9: 496] Diagnosis: DIABETES TYPE II[ICD9: 250.00] Diagnosis: Muscle ache[ICD9: 729.1] Karmen Ash MD, [facility] CPT- 4: 19828 04/25/2015 ([id number]) 46905 EST. P ATIENT, LEVEL III Diagnosis: ACTINIC KERATOSIS[ICD9: 702.0] Diagnosis: COPD (chronic obstructive pulmonary disease)[ICD9: 496] Diagnosis: DIABETES TYPE II[ICD9: 250.00] Diagnosis: ACUTE URI[ICD9: 465.9] Violeta Ash MD, [facility] CPT-4: 26440 04/12/2015 ([id number]) 56435 EST. P ATIENT, LEVEL III Diagnosis: DIABETES TYPE II[ICD9: 250.00] Violeta Ash MD, [facility] CPT-4: 36996 03/24/2015 ([id number]) 32625 EST. P ATIENT, LEVEL IV Diagnosis: DIABETES TYPE II[ICD9: 250.00] Diagnosis: Hypoglycemia[ICD9: 251.2] Diagnosis: Skin texture changes[ICD9: 782.8] Violeta Ash MD, [facility] CPT-4: 01602 03/07/2015 ([id number]) 57331 EST. P ATIENT, LEVEL IV Diagnosis: COPD (chronic obstructive pulmonary disease)[ICD9: 496] Diagnosis: Fatigue[ICD9: 780.79] Diagnosis: Insulin dependent diabetes mellitus[ICD9: 250.00] Diagnosis: Unsteady gait[ICD9: 781.2] Maame Ash MD, [facility] CPT-4: 58037 02/17/2015 ([id number]) 69113 EST. P ATIENT, LEVEL IV Diagnosis: BPPV (benign paroxysmal positional vertigo)[ICD9: 386.11] Diagnosis: Impacted cerumen[ICD9: 380.4] Diagnosis: ESSENTIAL HYPERTENSION[ICD9: 401.9] Diagnosis: Insulin dependent diabetes mellitus[ICD9: 250.00] Karmen Ash MD, [facility] CPT-4: 58474 12/23/2014 ([id number]) OFFICE VISI T, NEW - LEVEL 4 Diagnosis: Insulin dependent diabetes mellitus[ICD9: 250.00] Diagnosis: BPPV (benign paroxysmal positional vertigo)[ICD9: 386.11] Diagnosis: COPD (chronic obstructive pulmonary disease)[ICD9: 496] Diagnosis: Tobacco abuse[ICD9: 305.1] Diagnosis: Osteoarthritis[ICD9: 715.90] [facility] CPT- 4: 56558 12/09/2014 Plan of Care Planned Activity Notes C odes Status Date Patient Education: Patient Medication Summary Completed 02/22/2017 Visit Plan: Hypertension - well controll ed - continue with current medications, continue with no added salt diet. Pt has been encouraged to exercise daily.The pt has been advised to call the office if there are any acute concerns about change in blood pressure readings at home.Diabetes Mellitus - controlled - per recent FSBS [...] glucose readings are starting to become less controlled.Yyogrh-kxwudqb-zztal labs 02/19/2017 Appointment: Karmen Espinal WPtel: [phone] (30 min) Complex 02/19/2017 Patient Education: Patient Medication Summary Completed 02/19/2017 Patient Education: Smoking and Tobacco Addiction Completed 02/19/2017 Patient Education: Hypertension Completed 02/19/2017 Visit Plan: Esophageal Reflux - the gloria ent has been counseled against excessive intake of caffeine, spicy foods, peppermint, and cinnamon - all of which can exacerbate esophageal reflux.The patient is to take medications as prescribed and call the office if the symptoms are not improving.Constipation - uncontrolled - I have discussed with the patient the need for adequate fiber and water intake to facilitate soft, easily passed stools. The pt noted understanding of our conversation. Start miralax daily. The pt is to call if symptoms not improved on this regimen.REFER TO DR DONOHUE FOR EGD/COLONOSCOPY DUE TO INCREASING SYMPTOMS-WEIGHT LOSS-DECREASED APPETITE. PATIENT AND STATES IT HAS BEEN MORE THAN 10 YEARS SINCE SCOPES. HTN-elevated today-monitor at home-follow up in 1 month 01/21/2017 Appointment: Karmen Espinal WPtel: [facility] [phone] (30 min) Complex 01/21/2017 Patient Education: Patient Medication Summary Completed 01/21/2017 Patient Education: Smoking and Tobacco Addiction Completed 01/21/2017 Patient Education: Hypertension Completed 01/21/2017 Care Plan: Referral Order SNOMED-CT : [id number] Pending 01/21/2017 Visit Plan: Diabetes Mellitus - have re commended for the patient to have follow up labs prior to the next office visit. The patient has been instructed to continue with current medications as previously directed, continue with regular FSBS monitoring to assure continued control of diabetes. Pt to call for any acute concerns, complaints, or if the blood glucose readings are starting to become less controlled.I have recommended for the patient to follow more strictly to the diabetic diet as discussed in clinic to allow for greater blood glucose control.Vitamin d deficiency-check level today Hypertension - well controlled - continue with current medications, continue with no added salt diet. Pt has been encouraged to exercise daily.The pt has been advised to call the office if there are any acute concerns about change in blood pressure readings at home.COPD - chronic problem for this patient. We have reviewed chronic treatment strategy, symptom control, and plans for acute exacerbations. No changes today to the current treatment plan as the patient is stable, monitor for acute changes. 12/20/2016 Appointment: Karmen Espinal WPtel: [facility] [phone] (30 min) Complex 12/20/2016 Patient Education: Patient Medication Summary Completed 12/20/2016 Patient Education: Smoking and Tobacco Addiction Completed 12/20/2016 Patient Education: Hypertension Completed 12/20/2016 Appointment: K[facility] Espinal WPtel: [facility] [facility] [phone] (30 min) Complex 09/06/2016 Visit Plan: Diabetes Mellitus - controll ed - per recent FSBS reports. I have [...] glucose readings are starting to become less controlled.Hypertension - well controlled - continue with current medications, continue with no added salt diet. Pt has been encouraged to exercise daily.The pt has been advised to call the office if there are any acute concerns about change in blood pressure readings at home.Hyperlipidemia - pt has been counseled about appropriate [...] and to assure normal liver response to medications.Vitamin d deficiency- check vitamin d level 08/23/2016 Appointment: Karmen Espinal WPtel: [phone] [phone] (30 min) Complex 08/23/2016 Patient Education: Patient Medication Summary Completed 08/23/2016 Patient Education: Smoking and Tobacco Addiction Completed 08/23/2016 Patient Education: Patient Medication Summary Completed 05/23/2016 Visit Plan: Diabetes Mellitus - controll ed - per recent FSBS reports. I have [...] glucose readings are starting to become less controlled.Hypertension - well controlled - continue with current medications, continue with no added salt diet. Pt has been encouraged to exercise daily.The pt has been advised to call the office if there are any acute concerns about change in blood pressure readings at home.COPD - chronic problem for this patient. We have reviewed chronic treatment strategy, symptom control, and plans for acute exacerbations. No changes today to the current treatment plan as the patient is stable, monitor for acute changes. 05/22/2016 Appointment: K[facility] Espinal WPtel: [facility] [facility] [phone] (30 min) Complex 05/22/2016 Patient Education: Patient Medication Summary Completed 05/22/2016 Patient Education: Smoking and Tobacco Addiction Completed 05/22/2016 Care Plan: Cbc With Differential Ordered 05/22/2016 Care Plan: %Hba1C LOIN C : 51377-5 Ordered 05/22/2016 Care Plan: Tsh Ordered 05/22/2016 Care Plan: Comp Metabolic Ordered 05/22/2016 Visit Plan: Hypertension - well controll ed - continue with current medications, continue with no added salt diet. Pt has been encouraged to exercise daily.The pt has been advised to call the office if there are any acute concerns about change in blood pressure readings at home.Dysuria-UA negative-increase po fluids-call if symptoms do not resolve or if any worse-RX for cipro to take over the weekend of if symptoms worsen-call saturday with update 02/24/2016 Appointment: Karmen Espinal WPtel: [phone] (30 min) Complex 02/24/2016 Patient Education: Patient Medication Summary Completed 02/24/2016 Patient Education: Smoking and Tobacco Addiction Completed 02/24/2016 Patient Education: Hypertension Completed 02/24/2016 Visit Plan: Diabetes Mellitus - controll ed - per recent FSBS reports. I have [...] glucose readings are starting to become less controlled.Esophageal Reflux - the patient has been counseled against excessive intake of caffeine, spicy foods, peppermint, and cinnamon - all of which can exacerbate esophageal reflux.The patient is to take medications as prescribed and call the office if the symptoms are not improving.Constipation - uncontrolled - I have discussed with [...] regimen. 01/27/2016 Appointment: Karmen Espinal WPtel: [phone] [phone] (30 min) Complex 01/27/2016 Patient Education: Patient Medication Summary Completed 01/27/2016 Patient Education: Smoking and Tobacco Addiction Completed 01/27/2016 Visit Plan: Hypertension - well controll ed - continue with current medications, continue with no added salt diet. Pt has been encouraged to exercise daily.The pt has been advised to call the office if there are any acute concerns about change in blood pressure readings at home.Diabetes Mellitus - controlled - per recent FSBS [...] glucose readings are starting to become less controlled.Tobacco abuse - chronic condition for this patient. Patient has been counseled about need to stop smoking due to the negative health affects. Pt has vocalized understanding and states that they will consider smoking cessation, but the pt is not yet ready to use medication to assist cess ation.COPD-sample of [facility] Hyperlipidemia - pt has been counseled [...] Completed 11/25/2015 Visit Plan: Diabetes Mellitus - controll ed - per recent FSBS reports. I have [...] glucose readings are starting to become less controlled.Hypertension - well controlled - continue with current medications, continue with no added salt diet. Pt has been encouraged to exercise daily.The pt has been advised to call the office if there are any acute concerns about change in blood pressure readings at home.Vitamin D deficiency-check vitamin D level 07/28/2015 Appointment: (30 min) Complex 07/28/2015 Patient Education: Patient Medication Summary Completed 07/28/2015 Patient Education: Hypertension Completed 07/28/2015 Visit Plan: Hypertension - well controll ed - continue with current medications, continue with no added salt diet. Pt has been encouraged to exercise daily.The pt has been advised to call the office if there are any acute concerns about change in blood pressure readings at home.Diabetes Mellitus - controlled - per recent FSBS [...] Completed 05/09/2015 Visit Plan: Diabetes Mellitus - Uncontro lled - per recent FSBS reports. I have [...] glucose readings are starting to become less controlled.I have recommended for the patient to follow more strictly to the diabetic diet as discussed in clinic to allow for greater blood glucose control.COPD - chronic problem for this patient. We have reviewed chronic treatment strategy, symptom control, and plans for acute exacerbations. No changes today to the current treatment plan as the patient is stable, monitor for acute changes.Chest xray for persistent cough Hypertension - well controlled - continue with current medications, continue with no added salt diet. Pt has been encouraged to exercise daily.The pt has been advised to call the office if there are any acute concerns about change in blood pressure readings at home. 05/06/2015 Appointment: (15 min) Moderate 05/06/2015 Patient Education: Patient Medication Summary Completed 05/06/2015 Patient Education: Hypertension Completed 05/06/2015 Visit Plan: COPD EXACERBATION - COPD is a chronic [...] symptoms are beyond acute control with rescue medications.We have reviewed chronic treatment strategy, symptom control, and plans for acute exacerbations. No changes today to the current treatment plan as the patient is stable, monitor for acute changes.Symbicort sample provided and instructed on use-start prednisone [...] glucose readings are starting to become less controlled.I have recommended for the patient to follow more strictly to the diabetic diet as discussed in clinic to allow for greater blood glucose control.PATIENT WANTS TO START BACK ON GLIPIZIDE-RECOMMEND NOT CHANGING MEDICATIONS FOR THE NEXT MONTH-CONTINUE LEVEMIR AND METFORMIN, MONITOR BLOOD SUGARS AND BRING LOG TO NEXT APPT. INSTRUCTED PATIENT TO START ON 2.5MG TWICE DAILY IF HE IS INSISTENT ON STARTING BACK ON GLIPIZDE BUT THAT I PREFER HE NOT START BACK ON IT DUE TO THE POTENTIAL SIDE EFFECTS AND WORSENING OF SYMPTOMS. Ehkjdenr-qlnnltzm-SSIR SIMVASTATIN X 2 WEEKS AND CALL WITH UPDATE 04/25/2015 Appointment: (30 min) Complex 04/25/2015 Patient Education: Patient Medication Summary Completed 04/25/2015 Visit Plan: COPD - chronic problem for t his patient. We have reviewed chronic treatment strategy, symptom control, and plans for acute exacerbations. No changes today to the current treatment plan as the patient is stable, monitor for acute changes.URI - Pt advised to increase fluids, vitamin [...] glucose readings are starting to become less controlled.AK-left ear-cryotherapy to lesion today in the office-wound instructions provided 04/12/2015 Patient Education: Patient Medication Summary Completed 04/12/2015 Visit Plan: Diabetes Mellitus - controll ed - per recent FSBS reports. I have [...] readings are starting to become less controlled. 2014 Appointment: (15 min) Moderate 03/24/2015 Patient Education: Patient Medication Summary Completed 03/24/2015 Care Plan: COMPLETE CBC AUTOMATED LOINC : 13380-9 Ordered 03/24/2015 Visit Plan: Diabetes Mellitus - decrease glipizide to 5mg twice daily - x 1 week, then decrease to 5mg in the morning x 1 week then stop.during the decrease of the glipizide, check and record your blood glucose levels and bring to the office for doctor to review at the end of the 2 weeks.use neosporin on the skin lesions on head and facethe RX for cream for the skin lesions is called efudex 0.5% (look to see if you still have some at home)Skin change - posterior scalp - referral to Dr. Donohue for removal. 03/07/2015 Appointment: Violeta Ash WPtel: [address] [place], [place] [phone] (15 min) Moderate 03/07/2015 Patient Education: Patient Medication Summary Completed 03/07/2015 Appointment: (15 min) Moderate 02/21/2015 Visit Plan: Fatigue, Unsteady Gait, Dizz iness- Check labs and Head CT. Pt encouraged [...] 02/17/2015 Visit Plan: Cerumen Impaction - The impa cted cerumen was removed with the use of the ear currette. The patient tolerated the procedure without incident and had improvement in hearing.The wax was removed by the practitioner due [...] Care Plan: COMPLETE CBC AUTOMATED LOINC : 83869-0 Ordered 12/23/2014 Visit Plan: BPPV - Benign Paroxysmal Pos itional Vertigo - discussed diagnosis with the patient, offered the pt the appropriate additional information in hand- out. Pt instructed in home exercises to help alleviate and prevent future recurrent episodes of vertigo. RX sent to pharmacy. Pt informed that if symptoms worsen, call the office for further instructions/medication interventions.Diabetes Mellitus - I have recommended for the patient to have follow up labs prior to the next office visit. The patient has been instructed to continue with current medications as previously directed, continue with regular FSBS monitoring to assure continued control of diabetes. Pt to call for any acute concerns, complaints, or if the blood glucose readings are starting to become less controlled.BRING BLOOD SUGAR LOG TO NEXT APPOINTMENT Osteoarthritis- RX for Hydrocodone refill given to patient. Cerumen impaction-unable to remove all of cerumen-use sweet oil at HS and will check at next appt 2014 Appointment: Karmen Espinal [facility]Ptel[facility] [id number] [place] New Patient 12/09/2014 Patient Education: Patient Medication Summary Completed 12/09/2014 Patient Education: .Amazing charts Parox ysmal positional vertigo Completed 12/09/2014 Patient Education: Smoking and Tobacco Addiction Completed 12/09/2014 Referral: Luis Donohue Referral Appointment Requested Instructions Comment BRING BLOOD SUGAR LO G TO NEXT [...] and will check at next appt . Esophageal Reflux - the patient has [...] symptoms not improved on this regimen. . Hypertension - wel l controlled - [...] readings are starting to become less controlled. Omloeg-okkofzj-oohld labs decrease glipizide t o 5mg twice daily [...] keeping patient stabilized during the removal process. FLU SHOT . Diabetes Mellitus - controlled [...] POTENTIAL SIDE EFFECTS AND WORSENING OF SYMPTOMS. Jowivlds-bsmatwjf-LEYQ SIMVASTATIN X 2 WEEKS AND CALL WITH UPDATE . Fatigue, Unsteady Gait, Dizziness- Check labs [...]
[2020-03-29] MEDS ORDERED: MIDAZOLAM 2 MG/2 ML (VERSED) VIAL ONE (08:23)
--- OUTSIDE RECORDS SUMMARY | 2020-03-29 08:24 | XMS REPORT | CCD ---
Author Author Dick Espinal Organization Violeta Ash MD, [facility] Address [address] [place] [address] Phone Care Team Providers Care Branch Lending Officer Name Role Phone PP Unavailable CCM Unavailable Summary Purpose Interface Exchange Insurance Providers Payer name Policy type / Coverage type Covered republican ID Effective Begin Date Effective End Date WPS Medicare Part B Medicare Part B [id number] Unknown Unknown [employer] Medicar e Part B [id number] Unknown Unkn own Family history Father Diagnosis Age At Onset Cancer Unknown Mother Diagnosis Age At Onset Cancer Unknown Social History Social History Element Codes Description Effective Dates Marital status Unknown M arried 12/09/2014 Employment Unknown Retir ed 12/09/[address]: 46150301 Currently smokes tobacco 12/09/2014 Number of years using tobacco Unknown > 50 12/09/2014 Number of cigarettes/day Unknown 30 (Pack and a half) 12/09/[address]: 525652320 Never drinks alcohol 12/09/2014 Allergies, Adverse Reactions, [...] Protonix 40 mg table t,delayed release RxNorm: 161974 Tablet(s) Take 1 tabl et by mouth BID 02/25/2017 06/24/2017 Active Protonix 40 mg table t,delayed release RxNorm: 405026 Tablet(s) Take 1 tabl et by mouth BID 02/19/2017 02/18/2017 Inactive Protonix 40 mg table t,delayed release RxNorm: 647667 Tablet(s) Take 1 tabl et by mouth BID 02/19/2017 02/24/2017 Inactive lisinopril 10 mg tablet RxNorm: 244586 Take 1 tablet by mouth daily 01/29/2017 07/27/2017 Active - First Attempt Ref: [id number] hydrocodone 5 mg-linh taminophen 325 mg tablet RxNorm: 660123 1 Tablet(s) PO Q6-8H as needed 01/25/2017 02/26/2017 Active simvastatin 40 mg ta blet RxNorm: 083672 Tablet(s) Take 1 tabl et by mouth daily at bedtime 01/03/2017 12/28/2017 Active lisinopril 10 mg tablet RxNorm: 190676 Tablet(s) Take 1 tablet by mouth daily 01/03/2017 01/28/2017 In active Protonix 40 mg table t,delayed release RxNorm: 597744 Tablet(s) Take 1 tabl et by mouth daily 12/28/2016 02/18/2017 Inactive hydrocodone 5 mg-linh taminophen 325 mg tablet RxNorm: 864283 1 Tablet(s) PO Q6-8H as needed 12/26/2016 01/24/2017 Inactive Xanax 0.5 mg tablet RxNorm: 957162 1 Tablet(s) PO TID 12/12/2016 03/11/2017 Active simvastatin 40 mg ta blet RxNorm: 572886 Tablet(s) Take 1 tabl et by mouth daily at bedtime 11/30/2016 01/02/2017 Inactive simvastatin 40 mg ta blet RxNorm: 781794 Take 1 tablet by mout h daily at bedtime 11/29/2016 11/29/2016 In active - First Attempt Ref: [id number] Protonix 40 mg table t,delayed release RxNorm: 311585 Take 1 tablet by mout h daily 11/27/2016 12/27/2016 In active - First Attempt Ref: [id number] hydrocodone 5 mg-linh taminophen 325 mg tablet RxNorm: 310617 1 Tablet(s) PO Q6-8H as needed 11/26/2016 12/25/2016 Inactive hydrocodone 5 mg-linh taminophen 325 mg tablet RxNorm: 126181 1 Tablet(s) PO Q8 as needed 10/24/2016 11/25/2016 Inactive Xanax 0.5 mg tablet RxNorm: 446618 1 Tablet(s) PO TID 10/09/2016 12/25/2016 Inactive hydrocodone 5 mg-linh taminophen 325 mg tablet RxNorm: 007753 1 Tablet(s) PO Q8 as needed 09/27/2016 10/23/2016 Inactive lisinopril 10 mg tablet RxNorm: 034897 Take 1 tablet by mouth daily 09/25/2016 01/02/2017 Inactive - First Attempt Ref: [id number] Vitamin D2 50,000 un it capsule RxNorm: 939717 1 Capsule(s) PO QW 09/06/2016 No Stop Date Active hydrocodone 5 mg-linh taminophen 325 mg tablet RxNorm: 693848 1 Tablet(s) PO Q8 as needed 08/28/2016 09/26/2016 Inactive Toujeo SoloStar 300 unit/mL (1.5 mL) subcutaneous insulin pen RxNorm: 9598406 25 Unit(s) SQ QHS 08/23/2016 No Stop Date Active dosage increase hydrocodone 5 mg-linh taminophen 325 mg tablet RxNorm: 345677 1 Tablet(s) PO Q8 as needed 07/26/2016 08/27/2016 Inactive Protonix 40 mg table t,delayed release RxNorm: 068961 Take 1 tablet by mout h daily 07/24/2016 11/26/2016 In active - First Attempt Ref: [id number] hydrocodone 5 mg-linh taminophen 325 mg tablet RxNorm: 528896 1 Tablet(s) PO Q8 as needed 06/19/2016 07/21/2016 Inactive Toujeo SoloStar 300 unit/mL (1.5 mL) subcutaneous insulin pen RxNorm: 8024714 32 Unit(s) SQ QHS 05/30/2016 08/22/2016 Inactive dosage increase hydrocodone 5 mg-linh taminophen 325 mg tablet RxNorm: 754316 1 Tablet(s) PO Q8 as needed 05/22/2016 06/18/2016 Inactive hydrocodone 5 mg-linh taminophen 325 mg tablet RxNorm: 907722 1 Tablet(s) PO Q8 as needed 04/18/2016 05/17/2016 Inactive Protonix 40 mg table t,delayed release RxNorm: 905817 Take 1 tablet by mout h daily 04/05/2016 07/03/2016 In active - Ref: [id number] metformin 500 mg tablet RxNorm: 400374 Take 1 tablet by mouth daily 04/04/2016 07/02/2016 Inactive - Ref: [id number] Xanax 0.5 mg tablet RxNorm: 919027 1 Tablet(s) PO TID 03/30/2016 09/25/2016 Inactive Xanax 0.5 mg tablet RxNorm: 436391 1 Tablet(s) PO TID 03/23/2016 12/25/2016 Inactive hydrocodone 5 mg-linh taminophen 325 mg tablet RxNorm: 092292 1 Tablet(s) PO Q8 as needed 03/06/2016 04/04/2016 Inactive Cipro 500 mg tablet RxNorm: 985638 1 Tablet(s) PO BID 02/24/2016 03/04/2016 Inactive Miralax 17 gram oral powder packet RxNorm: 498985 1 packet PO every oth er day 01/27/2016 No Stop Date Active hydrocodone 5 mg-linh taminophen 325 mg tablet RxNorm: 121090 1 Tablet(s) PO Q8 as needed 01/27/2016 02/25/2016 Inactive lisinopril 10 mg tablet RxNorm: 243993 1 Tablet(s) PO daily 01/12/2016 09/24/2016 Inactive simvastatin 40 mg ta blet RxNorm: 681326 1 Tablet(s) PO QHS 01/12/2016 11/28/2016 Inactive simvastatin 40 mg ta blet RxNorm: 372350 1 Tablet(s) PO QHS 01/11/2016 01/11/2016 Inactive lisinopril 10 mg tablet RxNorm: 354098 1 Tablet(s) PO daily 01/06/2016 01/11/2016 Inactive simvastatin 40 mg ta blet RxNorm: 423911 1 Tablet(s) PO daily 12/28/2015 01/10/2016 Inactive hydrocodone 5 mg-linh taminophen 325 mg tablet RxNorm: 895404 1 Tablet(s) PO Q8 as needed 12/27/2015 01/26/2016 Inactive Xanax 0.5 mg tablet RxNorm: 767163 1 Tablet(s) PO TID 11/30/2015 03/29/2016 Inactive meclizine 25 mg tablet RxNorm: 745324 1 Tablet(s) PO Q6 PRN TAKE ONE TABLET BY MOUTH EVERY 6 HOURS NEEDED 11/25/2015 02/22/2016 Inactive Toujeo SoloStar 300 unit/mL (1.5 mL) subcutaneous insulin pen RxNorm: 5484712 30 Unit(s) SQ QHS 11/25/2015 05/29/2016 Inactive dosage increase omeprazole 20 mg cap jacquelyn,delayed release RxNorm: 292551 1 Capsule(s) PO daily 10/06/2015 01/26/2016 In active Toujeo SoloStar 300 unit/mL (1.5 mL) subcutaneous insulin pen RxNorm: 8059415 35 Unit(s) SQ QHS 08/02/2015 11/24/2015 Inactive dosage increase Vitamin D2 50,000 un it capsule RxNorm: 586278 1 Capsule(s) PO QW 08/02/2015 09/05/2016 Inactive hydrocodone 5 mg-linh taminophen 325 mg tablet RxNorm: 739354 1 Tablet(s) PO Q8 as needed 07/11/2015 12/26/2015 Inactive Xanax 0.5 mg tablet RxNorm: 078709 1 Tablet(s) PO TID 06/30/2015 06/29/2015 Inactive Xanax 0.5 mg tablet RxNorm: 775968 1 Tablet(s) PO TID 06/30/2015 12/25/2015 Inactive hydrocodone 5 mg-linh taminophen 325 mg tablet RxNorm: 760231 1 Tablet(s) PO Q8 as needed 05/06/2015 07/10/2015 Inactive Symbicort 160 mcg-4. 5 mcg/actuation HFA aerosol inhaler RxNorm: 8551799 INH 04/25/2015 No Stop Date Active Levemir FlexTouch 10 0 unit/mL (3 mL) subcutaneous insulin pen RxNorm: 237592 30 Unit(s) SQ QHS 04/25/2015 11/24/2015 Inactive prednisone 20 mg tablet RxNorm: 889214 1 Tablet(s) PO BID 04/25/2015 04/29/2015 Inactive metformin 500 mg tablet RxNorm: 994455 1 Tablet(s) PO daily 04/25/2015 04/03/2016 Inactive amoxicillin 500 mg c apsule RxNorm: 538561 1 Capsule(s) PO TID 04/14/2015 04/13/2015 Inactive amoxicillin 500 mg c apsule RxNorm: 003834 1 Capsule(s) PO TID a nd recommend probiotic tid (otc) 04/14/2015 04/20/2015 Inactive Kenalog 40 mg/mL bartolome pension for injection RxNorm: 4230322 Milliliter(s) Inj 04/12/2015 04/12/2015 In active hydrocodone 5 mg-linh taminophen 325 mg tablet RxNorm: 063631 1 Tablet(s) PO Q8 as needed 03/30/2015 05/05/2015 Inactive Lantus 100 unit/mL s ubcutaneous solution RxNorm: 602872 25 Unit(s) SQ QPM 03/24/2015 04/25/2015 In active meclizine 25 mg tablet RxNorm: 376020 Tablet(s) TAKE ONE TABLET BY MOUTH EVERY 6 HOURS NEEDED 03/08/2015 04/06/2015 Inactive meclizine 25 mg tablet RxNorm: 265946 TAKE ONE TABLET BY MOUTH EVERY 6 HOURS A S NEEDED 02/25/2015 03/03/2015 Inactive Lantus 100 unit/mL s ubcutaneous solution RxNorm: 162587 20 Unit(s) SQ QPM 02/23/2015 03/23/2015 In active Lantus 100 unit/mL s ubcutaneous solution RxNorm: 374157 25 Unit(s) SQ QPM 02/23/2015 02/22/2015 In active hydrocodone 5 mg-linh taminophen 325 mg tablet RxNorm: 190860 1 Tablet(s) PO Q8 as needed 02/17/2015 03/29/2015 Inactive Xanax 0.5 mg tablet RxNorm: 602131 1 Tablet(s) PO TID 02/03/2015 06/29/2015 Inactive Lantus 100 unit/mL s ubcutaneous solution RxNorm: 219463 20 Unit(s) SQ QPM 12/29/2014 02/22/2015 In active Phenergan 12.5 mg re ctal suppository RxNorm: 983890 1 Suppository RTL Q6 PRN 12/23/2014 No Stop Date Active nausea Kenalog 40 mg/mL bartolome pension for injection RxNorm: 9057977 Milliliter(s) Inj 12/23/2014 12/23/2014 In active prednisone 20 mg tablet RxNorm: 213307 2 Tablet(s) PO daily 12/13/2014 12/17/2014 Inactive prednisone 20 mg tablet RxNorm: 152016 2 Tablet(s) PO daily 12/13/2014 12/12/2014 Inactive meclizine 25 mg tablet RxNorm: 471442 1 Tablet(s) PO Q6 PRN 12/09/2014 02/24/2015 Inactive hydrocodone 5 mg-linh taminophen 325 mg tablet RxNorm: 047339 1 Tablet(s) PO Q8 as needed 12/09/2014 02/16/2015 Inactive Vitamin B-12 1,000 m cg/mL oral drops RxNorm: 8098892 1 Milliliter(s) PO d aily No Start Date Active Alphagan P 0.1 % eye drops RxNorm: 778751 1 Drop(s) OPH BID No Start Date Active aspirin 325 mg table t,delayed release RxNorm: 728092 1 Tablet(s) PO daily No Start Date Active Tricor 145 mg tablet RxNorm: 370280 1 Tablet(s) PO daily No Start Date Active vitamin [id number]-crjctzn B1 oral liquid RxNorm: 1,000 Microgram(s) PO daily No Start Date Active atenolol 50 mg tablet RxNorm: 681102 1 Tablet(s) PO daily No Start Date Active Protonix 40 mg table t,delayed release RxNorm: 687973 1 Tablet(s) PO daily No Start Date 04/04/2016 Inactive glipizide 10 mg tablet RxNorm: 887794 1 Tablet(s) PO BID No Start Date 03/22/2015 Inactive Lantus 100 unit/mL s ubcutaneous solution RxNorm: 064406 15 Unit(s) SQ QPM No Start Date 12/28/2014 Inactive lisinopril 10 mg tablet RxNorm: 146093 1 Tablet(s) PO daily No Start Date 01/05/2016 Inactive Vitamin D2 50,000 un it capsule RxNorm: 710698 1 Capsule(s) PO QW No Start Date 08/01/2015 Inactive Toujeo SoloStar 300 unit/mL (1.5 mL) subcutaneous insulin pen RxNorm: 8583466 30 Unit(s) SQ QHS No Start Date 08/01/2015 Inactive simvastatin 40 mg ta blet RxNorm: 516038 1 Tablet(s) PO daily No Start Date 12/27/2015 Inactive hydrocodone 5 mg-linh taminophen 325 mg tablet RxNorm: 847557 1 Tablet(s) PO Q8 as needed No Start Date 12/08/2014 Inactive metformin 500 mg tablet RxNorm: 293255 1 Tablet(s) PO daily No Start Date 04/24/2015 Inactive omeprazole 20 mg cap jacquelyn,delayed release RxNorm: 715754 1 Capsule(s) PO daily No Start Date 10/05/2015 Inactive Flomax 0.4 mg capsule RxNorm: 286983 1 Capsule(s) PO daily No Start Date 03/23/2015 Inactive Medication Administered Medication Codes Instruc tions Start Date Status Kenalog 40 mg/mL suspension for injection RxNorm: 7402730 Milliliter 04/12/2015 No longer Active Kenalog 40 mg/mL suspension for injection RxNorm: 5066778 Milliliter 12/23/2014 No longer Active Immunizations Vaccine [...] Code Item Item Code Result Date B12 Brc709 B12 >1500.00 pg/ml 02/22/2017 Cbc With Differential [...] 35.7 pg 02/20/2017 Cbc With Differential Ord2 [place]% 6.3 % 02/20/2017 Cbc With Differential Ord2 [...] 3.19 K/ul 02/20/2017 Cbc With Differential Ord2 [place] ABS# 0.5 K/ul 02/20/2017 Cbc With Differential Ord2 Eos ABS# 0.4 K/ul 02/20/2017 Cbc With Differential Ord2 Baso ABS# 0.0 K/ul 02/20/2017 Comp Metabolic Mbx176 NA 138 mEq/L 02/20/2017 Comp Metabolic Mdu058 K 4.5 mEq/L 02/20/2017 Comp Metabolic Yop196 CL 101 mEq/L 02/20/2017 Comp Metabolic Grw808 CO2 31.0 mEq/L 02/20/2017 Comp Metabolic Olj437 AN ION GAP 11 02/20/2017 Comp Metabolic Jlp766 GL UCOSE 120 mg/dL 02/20/2017 Comp Metabolic Cyi537 Cr eat 0.9 mg/dL 02/20/2017 Comp Metabolic Skd744 eG FR 83 ml/min/1.73m2 02/20 Comp Metabolic Prp879 BUN 15 mg/dL 02/20/2017 Comp Metabolic Xhn538 B/ C Ratio 16.1 Ratio 02/20/2017 Comp Metabolic Phl295 CA LCIUM 9.1 mg/dL 02/20/2017 Comp Metabolic Ihk706 AL K PHOS 67 U/L 02/20/2017 Comp Metabolic Wrf055 T(SGOT) 15 U/L 02/20/2017 Comp Metabolic Cjf437 AL T(SGPT) 16 U/L 02/20/2017 Comp Metabolic Jfw967 BI LI T 0.5 mg/dL 02/20/2017 Comp Metabolic Pnx292 AL BUMIN 4.0 g/dL 02/20/2017 Comp Metabolic Duz309 TP RO 6.4 g/dL 02/20/2017 Comp Metabolic Jvu916 GL OB 2.4 g/dL 02/20/2017 Comp Metabolic Frm556 A/ G Ratio 1.7 Ratio 02/20/2017 Comp Metabolic Ywy435 Os mo 278 mOsmo 02/20/2017 Tsh Ord6 hTSH II 2.05 uIU/mL 02/20/2017 %Hba1C Mmk978 % HbA1c 82266-3 7.6 % 02/20/2017 %Hba1C Olp495 Gluc Ave 171 mg/dL 02/20/2017 Vitamin D 25 Oh Weg6079 VITAMIN D, 25 HYDROXY 44.40 ng/mL 12/21/2016 Comp Metabolic Jwh060 NA 131 mEq/L 12/21/2016 Comp Metabolic Tkr619 K 4.2 mEq/L 12/21/2016 Comp Metabolic Ctn263 CL 97 mEq/L 12/21/2016 Comp Metabolic Zcm320 CO2 27.0 mEq/L 12/21/2016 Comp Metabolic Euq396 AN ION GAP 11 12/21/2016 Comp Metabolic Wcd496 GL UCOSE 266 mg/dL 12/21/2016 Comp Metabolic Wic825 Cr eat 0.9 mg/dL 12/21/2016 Comp Metabolic Zyb273 eG FR 88 ml/min/1.73m2 12/21 Comp Metabolic Ysl605 BUN 12 mg/dL 12/21/2016 Comp Metabolic Sgo001 B/ C Ratio 13.6 Ratio 12/21/2016 Comp Metabolic Pxe272 CA LCIUM 8.6 mg/dL 12/21/2016 Comp Metabolic Ylu575 AL K PHOS 69 U/L 12/21/2016 Comp Metabolic Cnc017 T(SGOT) 15 U/L 12/21/2016 Comp Metabolic Ula471 AL T(SGPT) 14 U/L 12/21/2016 Comp Metabolic Ohw687 BI LI T 0.3 mg/dL 12/21/2016 Comp Metabolic Vub453 AL BUMIN 3.7 g/dL 12/21/2016 Comp Metabolic Uvq044 TP RO 5.9 g/dL 12/21/2016 Comp Metabolic Vwk821 GL OB 2.2 g/dL 12/21/2016 Comp Metabolic Tsx413 A/ G Ratio 1.7 Ratio 12/21/2016 Comp Metabolic Uxn076 Os mo 272 mOsmo 12/21/2016 Cbc With Differential Ord2 WBC 5.19 K/ul 12/21/2016 Cbc With Differential Ord2 RBC 3.27 M/ul 12/21/2016 Cbc With Differential Ord2 HGB 11.3 g/dl 12/21/2016 Cbc With Differential Ord2 HCT 33.0 % 12/21/2016 Cbc With Differential Ord2 Neut% 49.3 % 12/21/2016 Cbc With Differential Ord2 Lymph% 39.5 % 12/21/2016 Cbc With Differential Ord2 MCV 100.9 fl 12/21/2016 Cbc With Differential Ord2 [place]% 6.9 % 12/21/2016 Cbc With Differential Ord2 MCH 34.6 pg 12/21/2016 Cbc With Differential Ord2 MCHC 34.2 pg 12/21/2016 Cbc With Differential Ord2 Eos% 3.9 % 12/21/2016 Cbc With Differential Ord2 PLT 187 K/ul 12/21/2016 Cbc With Differential Ord2 Baso% 0.4 % 12/21/2016 Cbc With Differential Ord2 RDW 13.1 % 12/21/2016 Cbc With Differential Ord2 Neut ABS# 2.56 K/ul 12/21/2016 Cbc With Differential Ord2 Lymph ABS# 2.05 K/ul 12/21/2016 Cbc With Differential Ord2 [place] ABS# 0.4 K/ul 12/21/2016 Cbc With Differential Ord2 Eos ABS# 0.2 K/ul 12/21/2016 Cbc With Differential Ord2 Baso ABS# 0.0 K/ul 12/21/2016 Comp Metabolic Esf670 NA 138 mEq/L 09/03/2016 Comp Metabolic Vrr458 K 4.5 mEq/L 09/03/2016 Comp Metabolic Loh748 CL 102 mEq/L 09/03/2016 Comp Metabolic Clq496 CO2 30.0 mEq/L 09/03/2016 Comp Metabolic Fbv397 AN ION GAP 11 09/03/2016 Comp Metabolic Bar215 GL UCOSE 113 mg/dL 09/03/2016 Comp Metabolic Kfk053 Cr eat 1.0 mg/dL 09/03/2016 Comp Metabolic Hwo934 eG FR 81 ml/min/1.73m2 09/03 Comp Metabolic Myn113 BUN 10 mg/dL 09/03/2016 Comp Metabolic Zpv160 B/ C Ratio 10.5 Ratio 09/03/2016 Comp Metabolic Uku493 CA LCIUM 9.1 mg/dL 09/03/2016 Comp Metabolic Gpf054 AL K PHOS 71 U/L 09/03/2016 Comp Metabolic Xvw852 T(SGOT) 18 U/L 09/03/2016 Comp Metabolic Niz563 AL T(SGPT) 17 U/L 09/03/2016 Comp Metabolic Ylu779 BI LI T 0.6 mg/dL 09/03/2016 Comp Metabolic Rlv484 AL BUMIN 4.1 g/dL 09/03/2016 Comp Metabolic Dnm768 TP RO 6.4 g/dL 09/03/2016 Comp Metabolic Phn578 GL OB 2.3 g/dL 09/03/2016 Comp Metabolic Lmp882 A/ G Ratio 1.8 Ratio 09/03/2016 Comp Metabolic Dqo386 Os mo 276 mOsmo 09/03/2016 Vitamin D 25 Oh Gkl9749 VITAMIN D, 25 HYDROXY 28.23 ng/mL 09/03/2016 [...] 34.4 pg 09/03/2016 Cbc With Differential Ord2 [place]% 8.9 % 09/03/2016 Cbc With Differential Ord2 Eos% 5.0 % 09/03/2016 Cbc With Differential Ord2 MCHC 33.8 pg 09/03/2016 Cbc With Differential Ord2 Baso% 0.1 % 09/03/2016 Cbc With Differential Ord2 PLT 163 K/ul 09/03/2016 Cbc With Differential Ord2 Neut ABS# 3.59 K/ul 09/03/2016 Cbc With Differential Ord2 RDW 13.6 % 09/03/2016 Cbc With Differential Ord2 Lymph ABS# 3.34 K/ul 09/03/2016 Cbc With Differential Ord2 [place] ABS# 0.7 K/ul 09/03/2016 Cbc With Differential Ord2 Eos ABS# 0.4 K/ul 09/03/2016 Cbc With Differential Ord2 Baso ABS# 0.0 K/ul 09/03/2016 Lipid Ord30 CHOL 120 mg/dL 09/03/2016 Lipid Ord30 HDL 33.0 mg/dl 09/03/2016 Lipid Ord30 TRIG 161 mg/dL 09/03/2016 Lipid Ord30 LDL 55 mg/dL 09/03/2016 Lipid Ord30 C/HDL 3.6 Ratio 09/03/2016 %Hba1C Uua127 % HbA1c 95681-9 7.5 % 09/03/2016 %Hba1C Pte197 Gluc Ave 169 mg/dL 09/03/2016 Tsh Ord6 hTSH II 1.50 uIU/mL 05/23/2016 %Hba1C Twj963 % HbA1c 47106-1 7.6 % 05/23/2016 %Hba1C Fef417 Gluc Ave 171 mg/dL 05/23/2016 Comp Metabolic Ryr622 NA 135 mEq/L 05/23/2016 Comp Metabolic Lyu136 K 4.4 mEq/L 05/23/2016 Comp Metabolic Vpl981 CL 99 mEq/L 05/23/2016 Comp Metabolic Fiy988 CO2 28.0 mEq/L 05/23/2016 Comp Metabolic Ixj206 AN ION GAP 12 05/23/2016 Comp Metabolic Ofh320 GL UCOSE 257 mg/dL 05/23/2016 Comp Metabolic Lol065 Cr eat 0.8 mg/dL 05/23/2016 Comp Metabolic Gff288 eG FR 95 ml/min/1.73m2 05/23 Comp Metabolic Bvf093 BUN 11 mg/dL 05/23/2016 Comp Metabolic Pvy829 B/ C Ratio 13.3 Ratio 05/23/2016 Comp Metabolic Oun798 CA LCIUM 9.0 mg/dL 05/23/2016 Comp Metabolic Lag403 AL K PHOS 82 U/L 05/23/2016 Comp Metabolic Qhp634 T(SGOT) 21 U/L 05/23/2016 Comp Metabolic Ogf703 AL T(SGPT) 20 U/L 05/23/2016 Comp Metabolic Kbo644 BI LI T 0.3 mg/dL 05/23/2016 Comp Metabolic Ejg885 AL BUMIN 4.0 g/dL 05/23/2016 Comp Metabolic Jyi113 TP RO 6.4 g/dL 05/23/2016 Comp Metabolic Hqh564 GL OB 2.4 g/dL 05/23/2016 Comp Metabolic Ubc310 A/ G Ratio 1.6 Ratio 05/23/2016 Comp Metabolic Rte817 Os mo 278 mOsmo 05/23/2016 Cbc With [...] 34.5 pg 05/23/2016 Cbc With Differential Ord2 [place]% 6.1 % 05/23/2016 Cbc With Differential Ord2 [...] 2.38 K/ul 05/23/2016 Cbc With Differential Ord2 [place] ABS# 0.4 K/ul 05/23/2016 Cbc With Differential Ord2 Eos ABS# 0.2 K/ul 05/23/2016 Cbc With Differential Ord2 Baso ABS# 0.0 K/ul 05/23/2016 B12 Jer967 B12 597.00 pg/ml 05/23/2016 Metabolic Ord15 NA [...] 0.92 uIU/mL 07/29/2015 Vitamin D 25 Oh Ghm6841 VITAMIN D, 25 HYDROXY 26.93 ng/mL 07/29/2015 %Hba1C Ufj557 % HbA1c 39821-5 8.8 % 07/29/2015 %Hba1C Kyf523 Gluc Ave 206 mg/dL 07/29/2015 Cbc With [...] Ord2 RDW 14.9 % 07/29/2015 Comp Metabolic Kpx790 NA 138 mEq/L 07/29/2015 Comp Metabolic Idz990 K 4.4 mEq/L 07/29/2015 Comp Metabolic Cpq649 CL 102 mEq/L 07/29/2015 Comp Metabolic Wln837 CO2 28.0 mEq/L 07/29/2015 Comp Metabolic Zcx147 AN ION GAP 12 07/29/2015 Comp Metabolic Uoa169 GL UCOSE 261 mg/dL 07/29/2015 Comp Metabolic Mcb117 Cr eat 1.0 mg/dL 07/29/2015 Comp Metabolic Orf220 eG FR 77 ml/min/1.73m2 07/29 Comp Metabolic Tce905 BUN 13 mg/dL 07/29/2015 Comp Metabolic Zul288 B/ C Ratio 13.0 Ratio 07/29/2015 Comp Metabolic Tmx130 CA LCIUM 9.1 mg/dL 07/29/2015 Comp Metabolic Wxq739 AL K PHOS 64 U/L 07/29/2015 Comp Metabolic Adb397 T(SGOT) 20 U/L 07/29/2015 Comp Metabolic Zdz062 AL T(SGPT) 22 U/L 07/29/2015 Comp Metabolic Ynm650 BI LI T 0.4 mg/dL 07/29/2015 Comp Metabolic Kea501 AL BUMIN 4.0 g/dL 07/29/2015 Comp Metabolic Qlb031 TP RO 6.1 g/dL 07/29/2015 Comp Metabolic Vjs179 GL OB 2.1 g/dL 07/29/2015 Comp Metabolic Whp251 A/ G Ratio 1.9 Ratio 07/29/2015 Comp Metabolic Ssv846 Os mo 285 mOsmo 07/29/2015 Cbc With [...] Ord2 RDW 13.1 % 05/06/2015 Comp Metabolic Jjc640 NA 134 mEq/L 05/06/2015 Comp Metabolic Aiw135 K 4.4 mEq/L 05/06/2015 Comp Metabolic Aiv833 CL 98 mEq/L 05/06/2015 Comp Metabolic Dme928 CO2 29.0 mEq/L 05/06/2015 Comp Metabolic Mhe782 AN ION GAP 11 05/06/2015 Comp Metabolic Evd200 GL UCOSE 321 mg/dL 05/06/2015 Comp Metabolic Sea063 Cr eat 1.0 mg/dL 05/06/2015 Comp Metabolic Jsq009 eG FR 78 ml/min/1.73m2 05/06 Comp Metabolic Iwe894 BUN 20 mg/dL 05/06/2015 Comp Metabolic Lnf072 B/ C Ratio 20.4 Ratio 05/06/2015 Comp Metabolic Sii631 CA LCIUM 9.5 mg/dL 05/06/2015 Comp Metabolic Tbd317 AL K PHOS 62 U/L 05/06/2015 Comp Metabolic Rlh838 T(SGOT) 21 U/L 05/06/2015 Comp Metabolic Bpl055 AL T(SGPT) 37 U/L 05/06/2015 Comp Metabolic Hzv827 BI LI T 0.4 mg/dL 05/06/2015 Comp Metabolic Hsf977 AL BUMIN 3.8 g/dL 05/06/2015 Comp Metabolic Mdp420 TP RO 6.1 g/dL 05/06/2015 Comp Metabolic Xdx950 GL OB 2.3 g/dL 05/06/2015 Comp Metabolic Fgr137 A/ G Ratio 1.7 Ratio 05/06/2015 Comp Metabolic Tum413 Os mo 283 mOsmo 05/06/2015 Tsh Ord6 hTSH II 1.65 uIU/mL 02/18/2015 B12 Aof417 B12 605.00 pg/ml 02/18/2015 %Hba1C Voq729 % HbA1c 82257-5 8.3 % 02/18/2015 %Hba1C Bwq970 Gluc Ave 192 mg/dL 02/18/2015 Cbc With [...] Ord2 RDW 13.9 % 02/17/2015 Comp Metabolic Ojq727 NA 137 mEq/L 02/17/2015 Comp Metabolic Xoj440 K 4.4 mEq/L 02/17/2015 Comp Metabolic Iix705 CL 100 mEq/L 02/17/2015 Comp Metabolic Idv798 CO2 31.0 mEq/L 02/17/2015 Comp Metabolic Jme438 AN ION GAP 10 02/17/2015 Comp Metabolic Jvb760 GL UCOSE 307 mg/dL 02/17/2015 Comp Metabolic Ajm650 Cr eat 1.0 mg/dL 02/17/2015 Comp Metabolic Kqz479 eG FR 74 ml/min/1.73m2 02/17 Comp Metabolic Slo903 BUN 22 mg/dL 02/17/2015 Comp Metabolic Jsm037 B/ C Ratio 21.4 Ratio 02/17/2015 Comp Metabolic Jwv428 CA LCIUM 9.5 mg/dL 02/17/2015 Comp Metabolic Den256 AL K PHOS 78 U/L 02/17/2015 Comp Metabolic Xnq886 T(SGOT) 18 U/L 02/17/2015 Comp Metabolic Vph466 AL T(SGPT) 32 U/L 02/17/2015 Comp Metabolic Kft972 BI LI T 0.5 mg/dL 02/17/2015 Comp Metabolic Ckc302 AL BUMIN 4.3 g/dL 02/17/2015 Comp Metabolic Btf711 TP RO 6.7 g/dL 02/17/2015 Comp Metabolic Jfq801 GL OB 2.4 g/dL 02/17/2015 Comp Metabolic Odc641 A/ G Ratio 1.8 Ratio 02/17/2015 Comp Metabolic Wbd780 Os mo 289 mOsmo 02/17/2015 Review of [...] inspection of skin Location: face 03/07/2015 on quaker, cheeks,actinic keratosis with irritation on left cheek - left quaker - croptherapy on these two lesions - [...] Date ADMIN INFLUENZA VIRU S VAC CPT-4: [id number] 05/22/2016 FLU VACC 4 TELLY 3 YRS PLUS IM Formatting Model/CDA Sections, Assigned to/Angela Clemons SNOMED CT: 79925143 CPT-4: 85564Baeziha 05/22/2016 TOBACCO-USE SR. MANAGER 3-[address]: 078188807 CPT-4: D2991Fwgpsfp 11/25/2015 URINALYSIS NONAUTO W /O SCOPE CPT-4: 24038Dgjxzrz 05/09/2015 TRIAMCINOLONE ACET I [place] NOS CPT-4: X5721Swvvvxd 04/12/2015 DESTRUCT PREMALG LES ION CPT-4: 25601Ocmvnvs 03/07/2015 DESTRUCT PREMALG LES 2-14 CPT-4: 43288Rncfcnu 03/07/2015 REMOVE IMPACTED EAR WAX UNI CPT-4: 99335Zsocmvi 12/31/2014 THER/PROPH/DIAG INJ SC/IM CPT-4: 07620Uirmrlv 12/23/2014 TRIAMCINOLONE ACET I [place] NOS CPT-4: R4799Uczlkwc 12/23/2014 Vital Signs Date Vital 02/19/2017 Blood Pressure 1: 138/64 Code: 8480-6 BMI: 21.3 Code: 85928-1 Heart Rate 1: 52 bpm Height: 5'11" SpO2: 96% Weight: 152 lbs 8 oz 01/21/2017 Blood Pressure 1: 160/68 Code: 8480-6 BMI: 21.3 Code: 79070-9 Heart Rate 1: 62 bpm Height: 5'11" SpO2: 96% Weight: 153 lbs 12/20/2016 Blood Pressure 1: 124/66 Code: 8480-6 BMI: 21.5 Code: 23645-7 Height: 5'11" Weight: 154 lbs 08/23/2016 Blood Pressure 1: 142/52 Code: 8480-6 BMI: 21.2 Code: 07566-6 Heart Rate 1: 54 bpm Height: 5'11" SpO2: 96% Weight: 152 lbs 05/22/2016 Blood Pressure 1: 130/76 Code: 8480-6 BMI: 21.5 Code: 43400-1 Heart Rate 1: 78 bpm Height: 5'11" SpO2: 92% Weight: 154 lbs 02/24/2016 Blood Pressure 1: 128/80 Code: 8480-6 BMI: 21.2 Code: 62786-6 Heart Rate 1: 74 bpm Height: 5'11" SpO2: 96% Weight: 152 lbs 01/27/2016 Blood Pressure 1: 144/60 Code: 8480-6 BMI: 21.2 Code: 28344-6 Heart Rate 1: 74 bpm Height: 5'11" SpO2: 97% Weight: 152 lbs 11/25/2015 Blood Pressure 1: 110/52 Code: 8480-6 BMI: 21.9 Code: 92141-3 Heart Rate 1: 65 bpm Height: 5'11" SpO2: 92% Weight: 157 lbs 07/28/2015 Blood Pressure 1: 138/62 Code: 8480-6 BMI: 21.8 Code: 93902-5 Heart Rate 1: 63 bpm Height: 5'11" SpO2: 91% Weight: 156 lbs 05/26/2015 Blood Pressure 1: 120/58 Code: 8480-6 BMI: 21.5 Code: 06645-6 Heart Rate 1: 99 bpm Height: 5'11" SpO2: 96% Weight: 154 lbs 05/06/2015 Blood Pressure 1: 120/58 Code: 8480-6 BMI: 21.2 Code: 83051-0 Heart Rate 1: 66 bpm Height: 5'11" SpO2: 96% Weight: 152 lbs 04/25/2015 Blood Pressure 1: 136/62 Code: 8480-6 BMI: 21.2 Code: 87656-4 Heart Rate 1: 63 bpm Height: 5'11" SpO2: 97% Weight: 152 lbs 04/12/2015 Blood Pressure 1: 160/58 Code: 8480-6 BMI: 21.6 Code: 70462-1 Heart Rate 1: 62 bpm Height: 5'11" Weight: 155 lbs 03/24/2015 Blood Pressure 1: 138/68 Code: 8480-6 BMI: 22.0 Code: 69406-7 Heart Rate 1: 65 bpm Height: 5'11" SpO2: 96% Weight: 158 lbs 03/07/2015 Blood Pressure 1: 116/52 Code: 8480-6 BMI: 22.2 Code: 66969-1 Heart Rate 1: 64 bpm Height: 5'11" SpO2: 97% Weight: 159 lbs 02/17/2015 Blood Pressure 1: 148/58 Code: 8480-6 BMI: 21.3 Code: 12253-4 Heart Rate 1: 63 bpm Height: 5'11" SpO2: 97% Weight: 153 lbs 12/31/2014 Blood Pressure 1: 100/60 Code: 8480-6 BMI: 21.8 Code: 01587-8 Heart Rate 1: 68 bpm Height: 5'11" Weight: 156 lbs 12/23/2014 Blood Pressure 1: 148/64 Code: 8480-6 BMI: 21.9 Code: 55246-5 Heart Rate 1: 64 bpm Height: 5'11" [...] Encounters Encounter Performer Loca tion Codes Date ([id number]) [id number] EST. P ATIENT, LEVEL IV Diagnosis: Type 2 diabetes mellitus with hyperglycemia[ICD10: E11.65] Diagnosis: Essential (primary) hypertension[ICD10: I10] Diagnosis: Anemia, unspecified[ICD10: D64.9] Karmen Ash MD, [facility] CPT- 4: 84495 02/19/2017 ([id number]) 37558 EST. P ATIENT, LEVEL IV Diagnosis: Slow transit constipation[ICD10: K59.01] Diagnosis: Gastro-esophageal reflux disease without esophagitis[ICD10: K21.9] Diagnosis: Essential (primary) hypertension[ICD10: I10] Karmen Ash MD, [facility] CPT-4: 67854 01/21/2017 ([id number]) 18256 EST. P ATIENT, LEVEL IV Diagnosis: Type 2 diabetes mellitus with hyperglycemia[ICD10: E11.65] Diagnosis: Vitamin D deficiency, unspecified[ICD10: E55.9] Diagnosis: Essential (primary) hypertension[ICD10: I10] Diagnosis: Chronic obstructive pulmonary disease, unspecified[ICD10: J44.9] Karmen Ash MD, [facility] CPT-4: 58139 12/20/2016 ([id number]) 00853 EST. P ATIENT, LEVEL IV Diagnosis: Type 2 diabetes mellitus with hyperglycemia[ICD10: E11.65] Diagnosis: Essential (primary) hypertension[ICD10: I10] Diagnosis: Mixed hyperlipidemia[ICD10: E78.2] Diagnosis: Vitamin D deficiency, unspecified[ICD10: E55.9] Karmen Ash MD, [facility] CPT-4: 76848 08/23/2016 ([id number]) 83780 EST. P ATIENT, LEVEL IV Diagnosis: Type 2 diabetes mellitus with hyperglycemia[ICD10: E11.65] Diagnosis: Essential (primary) hypertension[ICD10: I10] Diagnosis: Chronic obstructive pulmonary disease, unspecified[ICD10: J44.9] Karmen Ash MD, [facility] CPT-4: 52746 05/22/2016 ([id number]) 19916 EST. P ATIENT, LEVEL III Diagnosis: Dysuria[ICD10: R30.0] Diagnosis: Essential (primary) hypertension[ICD10: I10] Karmen Ash MD, [facility] CPT-4: 70204 02/24/2016 ([id number]) 51148 EST. P ATIENT, LEVEL IV Diagnosis: Gastro-esophageal reflux disease without esophagitis[ICD10: K21.9] Diagnosis: Slow transit constipation[ICD10: K59.01] Diagnosis: Type 2 diabetes mellitus with hyperglycemia[ICD10: E11.65] Karmen Ash MD, [facility] CPT-4: 73236 01/27/2016 ([id number]) 67385 EST. P ATIENT, LEVEL IV Diagnosis: Essential (primary) hypertension[ICD10: I10] Diagnosis: Type 2 diabetes mellitus with hyperglycemia[ICD10: E11.65] Diagnosis: Vitamin D deficiency, unspecified[ICD10: E55.9] Diagnosis: Chronic obstructive pulmonary disease, unspecified[ICD10: J44.9] Diagnosis: Mixed hyperlipidemia[ICD10: E78.2] Diagnosis: Tobacco use[ICD10: Z72.0] Karmen Ash MD, [facility] CPT- 4: 70401 11/25/2015 ([id number]) 66235 EST. P ATIENT, LEVEL IV Diagnosis: Type 2 diabetes mellitus with hyperglycemia[ICD10: E11.65] Diagnosis: Essential (primary) hypertension[ICD10: I10] Diagnosis: Vitamin D deficiency, unspecified[ICD10: E55.9] Karmen Ash MD, [facility] CPT-4: 21326 07/28/2015 ([id number]) 81952 EST. P ATIENT, LEVEL III Diagnosis: Type 2 diabetes mellitus with hyperglycemia[ICD10: E11.65] Diagnosis: Essential (primary) hypertension[ICD10: I10] Violeta Ash MD, [facility] CPT-4: 53347 05/26/2015 ([id number]) 41844 EST. P ATIENT, LEVEL III Diagnosis: DIABETES TYPE II[ICD9: 250.00] Diagnosis: COPD (chronic obstructive pulmonary disease)[ICD9: 496] Diagnosis: ESSENTIAL HYPERTENSION[ICD9: 401.9] Diagnosis: Cough[ICD9: 786.2] Violeta Ash MD, [facility] CPT-4: 97629 05/06/2015 ([id number]) 02386 EST. P ATIENT, LEVEL III Diagnosis: COPD (chronic obstructive pulmonary disease)[ICD9: 496] Diagnosis: DIABETES TYPE II[ICD9: 250.00] Diagnosis: Muscle ache[ICD9: 729.1] Karmen Ash MD, [facility] CPT- 4: 92260 04/25/2015 ([id number]) 20554 EST. P ATIENT, LEVEL III Diagnosis: ACTINIC KERATOSIS[ICD9: 702.0] Diagnosis: COPD (chronic obstructive pulmonary disease)[ICD9: 496] Diagnosis: DIABETES TYPE II[ICD9: 250.00] Diagnosis: ACUTE URI[ICD9: 465.9] Violeta Ash MD, [facility] CPT-4: 37273 04/12/2015 ([id number]) 00609 EST. P ATIENT, LEVEL III Diagnosis: DIABETES TYPE II[ICD9: 250.00] Violeta Ash MD, [facility] CPT-4: 97905 03/24/2015 ([id number]) 74246 EST. P ATIENT, LEVEL IV Diagnosis: DIABETES TYPE II[ICD9: 250.00] Diagnosis: Hypoglycemia[ICD9: 251.2] Diagnosis: Skin texture changes[ICD9: 782.8] Violeta Ash MD, [facility] CPT-4: 14446 03/07/2015 ([id number]) 92133 EST. P ATIENT, LEVEL IV Diagnosis: COPD (chronic obstructive pulmonary disease)[ICD9: 496] Diagnosis: Fatigue[ICD9: 780.79] Diagnosis: Insulin dependent diabetes mellitus[ICD9: 250.00] Diagnosis: Unsteady gait[ICD9: 781.2] Maame Ash MD, [facility] CPT-4: 99289 02/17/2015 ([id number]) 82635 EST. P ATIENT, LEVEL IV Diagnosis: BPPV (benign paroxysmal positional vertigo)[ICD9: 386.11] Diagnosis: Impacted cerumen[ICD9: 380.4] Diagnosis: ESSENTIAL HYPERTENSION[ICD9: 401.9] Diagnosis: Insulin dependent diabetes mellitus[ICD9: 250.00] [facility] CPT-4: 37857 12/23/2014 ([id number]) [facility] 4 Diagnosis: Insulin dependent diabetes mellitus[ICD9: 250.00] Diagnosis: BPPV (benign paroxysmal positional vertigo)[ICD9: 386.11] Diagnosis: COPD (chronic obstructive pulmonary disease)[ICD9: 496] Diagnosis: Tobacco abuse[ICD9: 305.1] Diagnosis: Osteoarthritis[ICD9: 715.90] [facility] CPT- 4: 78650 12/09/2014 Plan of Care Planned Activity Notes [...] glucose readings are starting to become less controlled.Boknqq-wxtvwto-qftds labs 02/19/2017 Appointment: Karmen Espinal WPtel: [phone] [phone] (30 min) Complex 02/19/2017 Patient Education: Patient [...] month 01/21/2017 Appointment: Karmen Espinal WPtel: [phone] [phone] (30 min) Complex 01/21/2017 Patient Education: Patient Medication Summary Completed 01/21/2017 Patient Education: Smoking and Tobacco Addiction Completed 01/21/2017 Patient Education: Hypertension Completed 01/21/2017 Care Plan: Referral Order SNOMED-CT : [id number] Pending 01/21/2017 Visit Plan: Diabetes Mellitus - [...] changes. 12/20/2016 [facility] [phone] [phone] (30 min) Complex 12/20/2016 Patient Education: Patient Medication Summary Completed 12/20/2016 Patient Education: Smoking and Tobacco Addiction Completed 12/20/2016 Patient Education: Hypertension Completed 12/20/2016 [facility] [phone] [phone] ([facility] min) Complex 09/06/2016 Visit Plan: Diabetes [...] d level 08/23/2016 Appointment: Karmen Espinal WPtel: [phone] [phone] (30 min) Complex 08/23/2016 Patient Education: Patient [...] acute changes. 05/22/2016 App[facility]ment: [facility] [phone] [phone] ([facility] min) Complex 05/22/2016 Patient Education: Patient Medication Summary Completed 05/22/2016 Patient Education: Smoking and Tobacco Addiction Completed 05/22/2016 Care Plan: Cbc With Differential Ordered 05/22/2016 Care Plan: %Hba1C LOIN C : 85710-1 Ordered 05/22/2016 Care Plan: Tsh Ordered 05/22/2016 [...] with update 02/24/2016 Appointment: Karmen Espinal WPtel: [phone] (30 min) Complex 02/24/2016 Patient Education: Patient [...] this regimen. 01/27/2016 Appointment: Karmen Espinal WPtel: [phone] (30 min) Complex 01/27/2016 Patient Education: Patient [...] use medication to assist cess ation.COPD-sample of symbicort Hyperlipidemia - pt has been [...] POTENTIAL SIDE EFFECTS AND WORSENING OF SYMPTOMS. Qwepjdhp-vwerfnsm-GSDH SIMVASTATIN X 2 WEEKS AND CALL WITH [...] Care Plan: COMPLETE CBC AUTOMATED LOINC : 63230-6 Ordered 03/24/2015 Visit Plan: Diabetes Mellitus - [...] for removal. 03/07/2015 Appointment: Violeta Ash WPtel: [address] [place], [place] [phone] (15 min) Moderate 03/07/2015 Patient Education: Patient [...] Care Plan: COMPLETE CBC AUTOMATED LOINC : 09398-7 Ordered 12/23/2014 Visit Plan: BPPV - Benign [...] next appt 2014 Appointment: Karmen Espinal WPtel: [address] [place], [place] [phone] [place] New Patient 12/09/2014 Patient Education: [...] readings are starting to become less controlled. Pbnyvh-ablvwgs-anxem labs decrease glipizide t o 5mg twice [...] POTENTIAL SIDE EFFECTS AND WORSENING OF SYMPTOMS. Whkkiywp-aagwdxge-GJOO SIMVASTATIN X 2 WEEKS AND CALL WITH [...]
--- OUTSIDE RECORDS SUMMARY | 2020-03-29 08:26 | XMS REPORT | CCD ---
Author Author Dick Espinal Organization Violeta Ash MD, [facility] Address [address] [place] [address] Phone Care Team Providers Care Liner Man Name Role Phone PP Unavailable CCM Unavailable Summary Purpose Interface Exchange Insurance Providers Payer name Policy type / Coverage type Covered constitution party ID Effective Begin Date Effective End Date WPS Medicare Part B Medicare Part B [id number] Unknown Unknown [employer] e Part B [id number] Unknown Unkn own Family history Father Diagnosis Age At Onset Cancer Unknown Mother Diagnosis Age At Onset Cancer Unknown Social History Social History Element Codes Description Effective Dates Marital status Unknown M arried 12/09/2014 Employment Unknown Retir ed 12/09/[address]: 94824394 Currently smokes tobacco 12/09/2014 Number of years using tobacco Unknown > 50 12/09/2014 Number of cigarettes/day Unknown 30 (Pack and a half) 12/09/[address]: 363738315 Never drinks alcohol 12/09/2014 Allergies, Adverse Reactions, [...] Protonix 40 mg table t,delayed release RxNorm: 230186 Tablet(s) Take 1 tabl et by mouth BID 02/19/2017 06/18/2017 Active Protonix 40 mg table t,delayed release RxNorm: 306181 Tablet(s) Take 1 tabl et by mouth BID 02/19/2017 02/18/2017 Inactive lisinopril 10 mg tablet RxNorm: 393172 Take 1 tablet by mouth daily 01/29/2017 07/27/2017 Active - First Attempt Ref: [id number] hydrocodone 5 mg-linh taminophen 325 mg tablet RxNorm: 529155 1 Tablet(s) PO Q6-8H as needed 01/25/2017 02/26/2017 Active simvastatin 40 mg ta blet RxNorm: 582753 Tablet(s) Take 1 tabl et by mouth daily at bedtime 01/03/2017 12/28/2017 Active lisinopril 10 mg tablet RxNorm: 109193 Tablet(s) Take 1 tablet by mouth daily 01/03/2017 01/28/2017 In active Protonix 40 mg table t,delayed release RxNorm: 297211 Tablet(s) Take 1 tabl et by mouth daily 12/28/2016 02/18/2017 Inactive hydrocodone 5 mg-linh taminophen 325 mg tablet RxNorm: 013978 1 Tablet(s) PO Q6-8H as needed 12/26/2016 01/24/2017 Inactive Xanax 0.5 mg tablet RxNorm: 947523 1 Tablet(s) PO TID 12/12/2016 03/11/2017 Active simvastatin 40 mg ta blet RxNorm: 035815 Tablet(s) Take 1 tabl et by mouth daily at bedtime 11/30/2016 01/02/2017 Inactive simvastatin 40 mg ta blet RxNorm: 125962 Take 1 tablet by mout h daily at bedtime 11/29/2016 11/29/2016 In active - First Attempt Ref: [id number] Protonix 40 mg table t,delayed release RxNorm: 451175 Take 1 tablet by mout h daily 11/27/2016 12/27/2016 In active - First Attempt Ref: [id number] hydrocodone 5 mg-linh taminophen 325 mg tablet RxNorm: 145194 1 Tablet(s) PO Q6-8H as needed 11/26/2016 12/25/2016 Inactive hydrocodone 5 mg-linh taminophen 325 mg tablet RxNorm: 140052 1 Tablet(s) PO Q8 as needed 10/24/2016 11/25/2016 Inactive Xanax 0.5 mg tablet RxNorm: 108207 1 Tablet(s) PO TID 10/09/2016 12/25/2016 Inactive hydrocodone 5 mg-linh taminophen 325 mg tablet RxNorm: 101888 1 Tablet(s) PO Q8 as needed 09/27/2016 10/23/2016 Inactive lisinopril 10 mg tablet RxNorm: 321130 Take 1 tablet by mouth daily 09/25/2016 01/02/2017 Inactive - First Attempt Ref: [id number] Vitamin D2 50,000 un it capsule RxNorm: 920301 1 Capsule(s) PO QW 09/06/2016 No Stop Date Active hydrocodone 5 mg-linh taminophen 325 mg tablet RxNorm: 838085 1 Tablet(s) PO Q8 as needed 08/28/2016 09/26/2016 Inactive Toujeo SoloStar 300 unit/mL (1.5 mL) subcutaneous insulin pen RxNorm: 7635884 25 Unit(s) SQ QHS 08/23/2016 No Stop Date Active dosage increase hydrocodone 5 mg-linh taminophen 325 mg tablet RxNorm: 147920 1 Tablet(s) PO Q8 as needed 07/26/2016 08/27/2016 Inactive Protonix 40 mg table t,delayed release RxNorm: 570564 Take 1 tablet by mout h daily 07/24/2016 11/26/2016 In active - First Attempt Ref: [id number] hydrocodone 5 mg-linh taminophen 325 mg tablet RxNorm: 106590 1 Tablet(s) PO Q8 as needed 06/19/2016 07/21/2016 Inactive Toujeo SoloStar 300 unit/mL (1.5 mL) subcutaneous insulin pen RxNorm: 2817120 32 Unit(s) SQ QHS 05/30/2016 08/22/2016 Inactive dosage increase hydrocodone 5 mg-linh taminophen 325 mg tablet RxNorm: 295321 1 Tablet(s) PO Q8 as needed 05/22/2016 06/18/2016 Inactive hydrocodone 5 mg-linh taminophen 325 mg tablet RxNorm: 028812 1 Tablet(s) PO Q8 as needed 04/18/2016 05/17/2016 Inactive Protonix 40 mg table t,delayed release RxNorm: 017816 Take 1 tablet by mout h daily 04/05/2016 07/03/2016 In active - Ref: [id number] metformin 500 mg tablet RxNorm: 236918 Take 1 tablet by mouth daily 04/04/2016 07/02/2016 Inactive - Ref: [id number] Xanax 0.5 mg tablet RxNorm: 929204 1 Tablet(s) PO TID 03/30/2016 09/25/2016 Inactive Xanax 0.5 mg tablet RxNorm: 291617 1 Tablet(s) PO TID 03/23/2016 12/25/2016 Inactive hydrocodone 5 mg-linh taminophen 325 mg tablet RxNorm: 376684 1 Tablet(s) PO Q8 as needed 03/06/2016 04/04/2016 Inactive Cipro 500 mg tablet RxNorm: 002589 1 Tablet(s) PO BID 02/24/2016 03/04/2016 Inactive Miralax 17 gram oral powder packet RxNorm: 597491 1 packet PO every oth er day 01/27/2016 No Stop Date Active hydrocodone 5 mg-linh taminophen 325 mg tablet RxNorm: 774007 1 Tablet(s) PO Q8 as needed 01/27/2016 02/25/2016 Inactive lisinopril 10 mg tablet RxNorm: 414603 1 Tablet(s) PO daily 01/12/2016 09/24/2016 Inactive simvastatin 40 mg ta blet RxNorm: 223815 1 Tablet(s) PO QHS 01/12/2016 11/28/2016 Inactive simvastatin 40 mg ta blet RxNorm: 338917 1 Tablet(s) PO QHS 01/11/2016 01/11/2016 Inactive lisinopril 10 mg tablet RxNorm: 754161 1 Tablet(s) PO daily 01/06/2016 01/11/2016 Inactive simvastatin 40 mg ta blet RxNorm: 895027 1 Tablet(s) PO daily 12/28/2015 01/10/2016 Inactive hydrocodone 5 mg-linh taminophen 325 mg tablet RxNorm: 427413 1 Tablet(s) PO Q8 as needed 12/27/2015 01/26/2016 Inactive Xanax 0.5 mg tablet RxNorm: 085754 1 Tablet(s) PO TID 11/30/2015 03/29/2016 Inactive meclizine 25 mg tablet RxNorm: 205152 1 Tablet(s) PO Q6 PRN TAKE ONE TABLET BY MOUTH EVERY 6 HOURS NEEDED 11/25/2015 02/22/2016 Inactive Toujeo SoloStar 300 unit/mL (1.5 mL) subcutaneous insulin pen RxNorm: 7814804 30 Unit(s) SQ QHS 11/25/2015 05/29/2016 Inactive dosage increase omeprazole 20 mg cap jacquelyn,delayed release RxNorm: 668153 1 Capsule(s) PO daily 10/06/2015 01/26/2016 In active Toujeo SoloStar 300 unit/mL (1.5 mL) subcutaneous insulin pen RxNorm: 9722590 35 Unit(s) SQ QHS 08/02/2015 11/24/2015 Inactive dosage increase Vitamin D2 50,000 un it capsule RxNorm: 579833 1 Capsule(s) PO QW 08/02/2015 09/05/2016 Inactive hydrocodone 5 mg-linh taminophen 325 mg tablet RxNorm: 436449 1 Tablet(s) PO Q8 as needed 07/11/2015 12/26/2015 Inactive Xanax 0.5 mg tablet RxNorm: 137771 1 Tablet(s) PO TID 06/30/2015 06/29/2015 Inactive Xanax 0.5 mg tablet RxNorm: 629173 1 Tablet(s) PO TID 06/30/2015 12/25/2015 Inactive hydrocodone 5 mg-linh taminophen 325 mg tablet RxNorm: 723055 1 Tablet(s) PO Q8 as needed 05/06/2015 07/10/2015 Inactive Symbicort 160 mcg-4. 5 mcg/actuation HFA aerosol inhaler RxNorm: 0509774 INH 04/25/2015 No Stop Date Active Levemir FlexTouch 10 0 unit/mL (3 mL) subcutaneous insulin pen RxNorm: 400799 30 Unit(s) SQ QHS 04/25/2015 11/24/2015 Inactive prednisone 20 mg tablet RxNorm: 405328 1 Tablet(s) PO BID 04/25/2015 04/29/2015 Inactive metformin 500 mg tablet RxNorm: 081657 1 Tablet(s) PO daily 04/25/2015 04/03/2016 Inactive amoxicillin 500 mg c apsule RxNorm: 123665 1 Capsule(s) PO TID 04/14/2015 04/13/2015 Inactive amoxicillin 500 mg c apsule RxNorm: 670792 1 Capsule(s) PO TID a nd recommend probiotic tid (otc) 04/14/2015 04/20/2015 Inactive Kenalog 40 mg/mL bartolome pension for injection RxNorm: 6359529 Milliliter(s) Inj 04/12/2015 04/12/2015 In active hydrocodone 5 mg-linh taminophen 325 mg tablet RxNorm: 517755 1 Tablet(s) PO Q8 as needed 03/30/2015 05/05/2015 Inactive Lantus 100 unit/mL s ubcutaneous solution RxNorm: 848358 25 Unit(s) SQ QPM 03/24/2015 04/25/2015 In active meclizine 25 mg tablet RxNorm: 143947 Tablet(s) TAKE ONE TABLET BY MOUTH EVERY 6 HOURS NEEDED 03/08/2015 04/06/2015 Inactive meclizine 25 mg tablet RxNorm: 622106 TAKE ONE TABLET BY MOUTH EVERY 6 HOURS A S NEEDED 02/25/2015 03/03/2015 Inactive Lantus 100 unit/mL s ubcutaneous solution RxNorm: 044558 20 Unit(s) SQ QPM 02/23/2015 03/23/2015 In active Lantus 100 unit/mL s ubcutaneous solution RxNorm: 261116 25 Unit(s) SQ QPM 02/23/2015 02/22/2015 In active hydrocodone 5 mg-linh taminophen 325 mg tablet RxNorm: 550649 1 Tablet(s) PO Q8 as needed 02/17/2015 03/29/2015 Inactive Xanax 0.5 mg tablet RxNorm: 619364 1 Tablet(s) PO TID 02/03/2015 06/29/2015 Inactive Lantus 100 unit/mL s ubcutaneous solution RxNorm: 414555 20 Unit(s) SQ QPM 12/29/2014 02/22/2015 In active Phenergan 12.5 mg re ctal suppository RxNorm: 308448 1 Suppository RTL Q6 PRN 12/23/2014 No Stop Date Active nausea Kenalog 40 mg/mL bartolome pension for injection RxNorm: 8320436 Milliliter(s) Inj 12/23/2014 12/23/2014 In active prednisone 20 mg tablet RxNorm: 010930 2 Tablet(s) PO daily 12/13/2014 12/17/2014 Inactive prednisone 20 mg tablet RxNorm: 308819 2 Tablet(s) PO daily 12/13/2014 12/12/2014 Inactive meclizine 25 mg tablet RxNorm: 858496 1 Tablet(s) PO Q6 PRN 12/09/2014 02/24/2015 Inactive hydrocodone 5 mg-linh taminophen 325 mg tablet RxNorm: 455391 1 Tablet(s) PO Q8 as needed 12/09/2014 02/16/2015 Inactive Vitamin B-12 1,000 m cg/mL oral drops RxNorm: 1106895 1 Milliliter(s) PO d aily No Start Date Active Alphagan P 0.1 % eye drops RxNorm: 400968 1 Drop(s) OPH BID No Start Date Active aspirin 325 mg table t,delayed release RxNorm: 939828 1 Tablet(s) PO daily No Start Date Active Tricor 145 mg tablet RxNorm: 743602 1 Tablet(s) PO daily No Start Date Active vitamin R78-mrxujra B1 oral liquid RxNorm: 1,000 Microgram(s) PO daily No Start Date Active atenolol 50 mg tablet RxNorm: 275635 1 Tablet(s) PO daily No Start Date Active Protonix 40 mg table t,delayed release RxNorm: 396990 1 Tablet(s) PO daily No Start Date 04/04/2016 Inactive glipizide 10 mg tablet RxNorm: 200372 1 Tablet(s) PO BID No Start Date 03/22/2015 Inactive Lantus 100 unit/mL s ubcutaneous solution RxNorm: 453911 15 Unit(s) SQ QPM No Start Date 12/28/2014 Inactive lisinopril 10 mg tablet RxNorm: 503592 1 Tablet(s) PO daily No Start Date 01/05/2016 Inactive Vitamin D2 50,000 un it capsule RxNorm: 030574 1 Capsule(s) PO QW No Start Date 08/01/2015 Inactive Toujeo SoloStar 300 unit/mL (1.5 mL) subcutaneous insulin pen RxNorm: 0869553 30 Unit(s) SQ QHS No Start Date 08/01/2015 Inactive simvastatin 40 mg ta blet RxNorm: 906994 1 Tablet(s) PO daily No Start Date 12/27/2015 Inactive hydrocodone 5 mg-linh taminophen 325 mg tablet RxNorm: 827587 1 Tablet(s) PO Q8 as needed No Start Date 12/08/2014 Inactive metformin 500 mg tablet RxNorm: 845456 1 Tablet(s) PO daily No Start Date 04/24/2015 Inactive omeprazole 20 mg cap jacquelyn,delayed release RxNorm: 963880 1 Capsule(s) PO daily No Start Date 10/05/2015 Inactive Flomax 0.4 mg capsule RxNorm: 943424 1 Capsule(s) PO daily No Start Date 03/23/2015 Inactive Medication Administered Medication Codes Instruc tions Start Date Status Kenalog 40 mg/mL suspension for injection RxNorm: 2219884 Milliliter 04/12/2015 No longer Active Kenalog 40 mg/mL suspension for injection RxNorm: 7061265 Milliliter 12/23/2014 No longer Active Immunizations Vaccine [...] Code Item Item Code Result Date B12 Hwf031 B12 >1500.00 pg/ml 02/22/2017 Cbc With Differential [...] 35.7 pg 02/20/2017 Cbc With Differential Ord2 Kent% 6.3 % 02/20/2017 Cbc With Differential Ord2 [...] 3.19 K/ul 02/20/2017 Cbc With Differential Ord2 [place] ABS# 0.5 K/ul 02/20/2017 Cbc With Differential Ord2 Eos ABS# 0.4 K/ul 02/20/2017 Cbc With Differential Ord2 Baso ABS# 0.0 K/ul 02/20/2017 Comp Metabolic Hrd007 NA 138 mEq/L 02/20/2017 Comp Metabolic Lxn958 K 4.5 mEq/L 02/20/2017 Comp Metabolic Vpu888 CL 101 mEq/L 02/20/2017 Comp Metabolic Kfl916 CO2 31.0 mEq/L 02/20/2017 Comp Metabolic Mvk140 AN ION GAP 11 02/20/2017 Comp Metabolic Pel082 GL UCOSE 120 mg/dL 02/20/2017 Comp Metabolic Ydn464 Cr eat 0.9 mg/dL 02/20/2017 Comp Metabolic Nij824 eG FR 83 ml/min/1.73m2 02/20 Comp Metabolic Fwc147 BUN 15 mg/dL 02/20/2017 Comp Metabolic Obe805 B/ C Ratio 16.1 Ratio 02/20/2017 Comp Metabolic Pbh802 CA LCIUM 9.1 mg/dL 02/20/2017 Comp Metabolic Yej703 AL K PHOS 67 U/L 02/20/2017 Comp Metabolic Uek339 T(SGOT) 15 U/L 02/20/2017 Comp Metabolic Zwa843 AL T(SGPT) 16 U/L 02/20/2017 Comp Metabolic Tcc211 BI LI T 0.5 mg/dL 02/20/2017 Comp Metabolic Ptf995 AL BUMIN 4.0 g/dL 02/20/2017 Comp Metabolic Wxt231 TP RO 6.4 g/dL 02/20/2017 Comp Metabolic Fje750 GL OB 2.4 g/dL 02/20/2017 Comp Metabolic Gzp578 A/ G Ratio 1.7 Ratio 02/20/2017 Comp Metabolic Pps157 Os mo 278 mOsmo 02/20/2017 Tsh Ord6 hTSH II 2.05 uIU/mL 02/20/2017 %Hba1C Hdo220 % HbA1c 28238-3 7.6 % 02/20/2017 %Hba1C Fzs500 Gluc Ave 171 mg/dL 02/20/2017 Vitamin D 25 Oh Kdq1164 VITAMIN D, 25 HYDROXY 44.40 ng/mL 12/21/2016 Comp Metabolic Lrq977 NA 131 mEq/L 12/21/2016 Comp Metabolic Vau840 K 4.2 mEq/L 12/21/2016 Comp Metabolic Sdb015 CL 97 mEq/L 12/21/2016 Comp Metabolic Nzd767 CO2 27.0 mEq/L 12/21/2016 Comp Metabolic Nuh225 AN ION GAP 11 12/21/2016 Comp Metabolic Rmv938 GL UCOSE 266 mg/dL 12/21/2016 Comp Metabolic Utq380 Cr eat 0.9 mg/dL 12/21/2016 Comp Metabolic Ewt751 eG FR 88 ml/min/1.73m2 12/21 Comp Metabolic Ase609 BUN 12 mg/dL 12/21/2016 Comp Metabolic Zsm300 B/ C Ratio 13.6 Ratio 12/21/2016 Comp Metabolic Bax167 CA LCIUM 8.6 mg/dL 12/21/2016 Comp Metabolic Dzz607 AL K PHOS 69 U/L 12/21/2016 Comp Metabolic Fdg264 T(SGOT) 15 U/L 12/21/2016 Comp Metabolic Xtd131 AL T(SGPT) 14 U/L 12/21/2016 Comp Metabolic Aol266 BI LI T 0.3 mg/dL 12/21/2016 Comp Metabolic Uvn306 AL BUMIN 3.7 g/dL 12/21/2016 Comp Metabolic Mfe485 TP RO 5.9 g/dL 12/21/2016 Comp Metabolic Gwp051 GL OB 2.2 g/dL 12/21/2016 Comp Metabolic Drq833 A/ G Ratio 1.7 Ratio 12/21/2016 Comp Metabolic Qvh775 Os mo 272 mOsmo 12/21/2016 Cbc With [...] 39.5 % 12/21/2016 Cbc With Differential Ord2 Kent% 6.9 % 12/21/2016 Cbc With Differential Ord2 MCH 34.6 pg 12/21/2016 Cbc With Differential Ord2 Eos% 3.9 % 12/21/2016 Cbc With Differential Ord2 MCHC 34.2 pg 12/21/2016 Cbc With Differential Ord2 Baso% 0.4 % 12/21/2016 Cbc With Differential Ord2 PLT 187 K/ul 12/21/2016 Cbc With Differential Ord2 Neut ABS# 2.56 K/ul 12/21/2016 Cbc With Differential Ord2 RDW 13.1 % 12/21/2016 Cbc With Differential Ord2 Lymph ABS# 2.05 K/ul 12/21/2016 Cbc With Differential Ord2 [place] ABS# 0.4 K/ul 12/21/2016 Cbc With Differential Ord2 Eos ABS# 0.2 K/ul 12/21/2016 Cbc With Differential Ord2 Baso ABS# 0.0 K/ul 12/21/2016 Comp Metabolic Zze957 NA 138 mEq/L 09/03/2016 Comp Metabolic Thx489 K 4.5 mEq/L 09/03/2016 Comp Metabolic Azc593 CL 102 mEq/L 09/03/2016 Comp Metabolic Mkr853 CO2 30.0 mEq/L 09/03/2016 Comp Metabolic Wnn091 AN ION GAP 11 09/03/2016 Comp Metabolic Qco614 GL UCOSE 113 mg/dL 09/03/2016 Comp Metabolic Iqv537 Cr eat 1.0 mg/dL 09/03/2016 Comp Metabolic Dec724 eG FR 81 ml/min/1.73m2 09/03 Comp Metabolic Qst729 BUN 10 mg/dL 09/03/2016 Comp Metabolic Ojk631 B/ C Ratio 10.5 Ratio 09/03/2016 Comp Metabolic Zqa090 CA LCIUM 9.1 mg/dL 09/03/2016 Comp Metabolic Ujf787 AL K PHOS 71 U/L 09/03/2016 Comp Metabolic Saw003 T(SGOT) 18 U/L 09/03/2016 Comp Metabolic Ctd505 AL T(SGPT) 17 U/L 09/03/2016 Comp Metabolic Shz130 BI LI T 0.6 mg/dL 09/03/2016 Comp Metabolic Xqs730 AL BUMIN 4.1 g/dL 09/03/2016 Comp Metabolic Dbx615 TP RO 6.4 g/dL 09/03/2016 Comp Metabolic Pol813 GL OB 2.3 g/dL 09/03/2016 Comp Metabolic Chs635 A/ G Ratio 1.8 Ratio 09/03/2016 Comp Metabolic Eto227 Os mo 276 mOsmo 09/03/2016 Vitamin D 25 Oh Gej0656 VITAMIN D, 25 HYDROXY 28.23 ng/mL 09/03/2016 [...] 101.9 fl 09/03/2016 Cbc With Differential Ord2 [place]% 8.9 % 09/03/2016 Cbc With Differential Ord2 [...] 3.34 K/ul 09/03/2016 Cbc With Differential Ord2 [place] ABS# 0.7 K/ul 09/03/2016 Cbc With Differential Ord2 Eos ABS# 0.4 K/ul 09/03/2016 Cbc With Differential Ord2 Baso ABS# 0.0 K/ul 09/03/2016 Lipid Ord30 CHOL 120 mg/dL 09/03/2016 Lipid Ord30 HDL 33.0 mg/dl 09/03/2016 Lipid Ord30 TRIG 161 mg/dL 09/03/2016 Lipid Ord30 LDL 55 mg/dL 09/03/2016 Lipid Ord30 C/HDL 3.6 Ratio 09/03/2016 %Hba1C Zun271 % HbA1c 38979-0 7.5 % 09/03/2016 %Hba1C Jag789 Gluc Ave 169 mg/dL 09/03/2016 Tsh Ord6 hTSH II 1.50 uIU/mL 05/23/2016 %Hba1C Goq292 % HbA1c 13809-7 7.6 % 05/23/2016 %Hba1C Nbp944 Gluc Ave 171 mg/dL 05/23/2016 Comp Metabolic Ilv802 NA 135 mEq/L 05/23/2016 Comp Metabolic Xgz143 K 4.4 mEq/L 05/23/2016 Comp Metabolic Lhu998 CL 99 mEq/L 05/23/2016 Comp Metabolic Hys047 CO2 28.0 mEq/L 05/23/2016 Comp Metabolic Hvf300 AN ION GAP 12 05/23/2016 Comp Metabolic Nly862 GL UCOSE 257 mg/dL 05/23/2016 Comp Metabolic Egn379 Cr eat 0.8 mg/dL 05/23/2016 Comp Metabolic Vvw122 eG FR 95 ml/min/1.73m2 05/23 Comp Metabolic Fkf409 BUN 11 mg/dL 05/23/2016 Comp Metabolic Dii240 B/ C Ratio 13.3 Ratio 05/23/2016 Comp Metabolic Xtw647 CA LCIUM 9.0 mg/dL 05/23/2016 Comp Metabolic Unt915 AL K PHOS 82 U/L 05/23/2016 Comp Metabolic Yij609 T(SGOT) 21 U/L 05/23/2016 Comp Metabolic Zbt805 AL T(SGPT) 20 U/L 05/23/2016 Comp Metabolic Lux724 BI LI T 0.3 mg/dL 05/23/2016 Comp Metabolic Cul277 AL BUMIN 4.0 g/dL 05/23/2016 Comp Metabolic Fyv834 TP RO 6.4 g/dL 05/23/2016 Comp Metabolic Uez530 GL OB 2.4 g/dL 05/23/2016 Comp Metabolic Qqd916 A/ G Ratio 1.6 Ratio 05/23/2016 Comp Metabolic Hsy590 Os mo 278 mOsmo 05/23/2016 Cbc With [...] 34.5 pg 05/23/2016 Cbc With Differential Ord2 Kent% 6.1 % 05/23/2016 Cbc With Differential Ord2 [...] 2.38 K/ul 05/23/2016 Cbc With Differential Ord2 [place] ABS# 0.4 K/ul 05/23/2016 Cbc With Differential Ord2 Eos ABS# 0.2 K/ul 05/23/2016 Cbc With Differential Ord2 Baso ABS# 0.0 K/ul 05/23/2016 B12 Sbp419 B12 597.00 pg/ml 05/23/2016 Metabolic Ord15 NA [...] 0.92 uIU/mL 07/29/2015 Vitamin D 25 Oh Nrj3713 VITAMIN D, 25 HYDROXY 26.93 ng/mL 07/29/2015 %Hba1C Zee768 % HbA1c 30942-8 8.8 % 07/29/2015 %Hba1C Vpm194 Gluc Ave 206 mg/dL 07/29/2015 Cbc With [...] Ord2 RDW 14.9 % 07/29/2015 Comp Metabolic Sjb998 NA 138 mEq/L 07/29/2015 Comp Metabolic Bua271 K 4.4 mEq/L 07/29/2015 Comp Metabolic Nru404 CL 102 mEq/L 07/29/2015 Comp Metabolic Epx815 CO2 28.0 mEq/L 07/29/2015 Comp Metabolic Epy461 AN ION GAP 12 07/29/2015 Comp Metabolic Iti119 GL UCOSE 261 mg/dL 07/29/2015 Comp Metabolic Nht869 Cr eat 1.0 mg/dL 07/29/2015 Comp Metabolic Asl601 eG FR 77 ml/min/1.73m2 07/29 Comp Metabolic Ofh136 BUN 13 mg/dL 07/29/2015 Comp Metabolic Ytc357 B/ C Ratio 13.0 Ratio 07/29/2015 Comp Metabolic Wol246 CA LCIUM 9.1 mg/dL 07/29/2015 Comp Metabolic Dvu927 AL K PHOS 64 U/L 07/29/2015 Comp Metabolic Zur308 T(SGOT) 20 U/L 07/29/2015 Comp Metabolic Wbq284 AL T(SGPT) 22 U/L 07/29/2015 Comp Metabolic Mmi907 BI LI T 0.4 mg/dL 07/29/2015 Comp Metabolic Xkc351 AL BUMIN 4.0 g/dL 07/29/2015 Comp Metabolic Nqj899 TP RO 6.1 g/dL 07/29/2015 Comp Metabolic Cul962 GL OB 2.1 g/dL 07/29/2015 Comp Metabolic Srt511 A/ G Ratio 1.9 Ratio 07/29/2015 Comp Metabolic Agw795 Os mo 285 mOsmo 07/29/2015 Cbc With [...] Ord2 RDW 13.1 % 05/06/2015 Comp Metabolic Wcd301 NA 134 mEq/L 05/06/2015 Comp Metabolic Cll648 K 4.4 mEq/L 05/06/2015 Comp Metabolic Bjz147 CL 98 mEq/L 05/06/2015 Comp Metabolic Wwt306 CO2 29.0 mEq/L 05/06/2015 Comp Metabolic Oka627 AN ION GAP 11 05/06/2015 Comp Metabolic Adx284 GL UCOSE 321 mg/dL 05/06/2015 Comp Metabolic Sba592 Cr eat 1.0 mg/dL 05/06/2015 Comp Metabolic Eaz257 eG FR 78 ml/min/1.73m2 05/06 Comp Metabolic Sgx752 BUN 20 mg/dL 05/06/2015 Comp Metabolic Ybf346 B/ C Ratio 20.4 Ratio 05/06/2015 Comp Metabolic Spl762 CA LCIUM 9.5 mg/dL 05/06/2015 Comp Metabolic Sbx958 AL K PHOS 62 U/L 05/06/2015 Comp Metabolic Skx624 T(SGOT) 21 U/L 05/06/2015 Comp Metabolic Vwc912 AL T(SGPT) 37 U/L 05/06/2015 Comp Metabolic Qrp802 BI LI T 0.4 mg/dL 05/06/2015 Comp Metabolic Lyq458 AL BUMIN 3.8 g/dL 05/06/2015 Comp Metabolic Vlb555 TP RO 6.1 g/dL 05/06/2015 Comp Metabolic Xud388 GL OB 2.3 g/dL 05/06/2015 Comp Metabolic Jrv880 A/ G Ratio 1.7 Ratio 05/06/2015 Comp Metabolic Fbv106 Os mo 283 mOsmo 05/06/2015 Tsh Ord6 hTSH II 1.65 uIU/mL 02/18/2015 B12 Twy054 B12 605.00 pg/ml 02/18/2015 %Hba1C Yyr562 % HbA1c 74141-4 8.3 % 02/18/2015 %Hba1C Jcw726 Gluc Ave 192 mg/dL 02/18/2015 Cbc With [...] Ord2 RDW 13.9 % 02/17/2015 Comp Metabolic Paw324 NA 137 mEq/L 02/17/2015 Comp Metabolic Khk260 K 4.4 mEq/L 02/17/2015 Comp Metabolic Ugw694 CL 100 mEq/L 02/17/2015 Comp Metabolic Tpc779 CO2 31.0 mEq/L 02/17/2015 Comp Metabolic Gek947 AN ION GAP 10 02/17/2015 Comp Metabolic Lub325 GL UCOSE 307 mg/dL 02/17/2015 Comp Metabolic Xwr026 Cr eat 1.0 mg/dL 02/17/2015 Comp Metabolic Uor377 eG FR 74 ml/min/1.73m2 02/17 Comp Metabolic Eas101 BUN 22 mg/dL 02/17/2015 Comp Metabolic Mro442 B/ C Ratio 21.4 Ratio 02/17/2015 Comp Metabolic Nmv351 CA LCIUM 9.5 mg/dL 02/17/2015 Comp Metabolic Ryc082 AL K PHOS 78 U/L 02/17/2015 Comp Metabolic Zam300 T(SGOT) 18 U/L 02/17/2015 Comp Metabolic Dkl687 AL T(SGPT) 32 U/L 02/17/2015 Comp Metabolic Fvy503 BI LI T 0.5 mg/dL 02/17/2015 Comp Metabolic Xnh932 AL BUMIN 4.3 g/dL 02/17/2015 Comp Metabolic Bmg538 TP RO 6.7 g/dL 02/17/2015 Comp Metabolic Ikj368 GL OB 2.4 g/dL 02/17/2015 Comp Metabolic Aik721 A/ G Ratio 1.8 Ratio 02/17/2015 Comp Metabolic Ucp135 Os mo 289 mOsmo 02/17/2015 Review of [...] inspection of skin Location: face 03/07/2015 on yarsani, cheeks,actinic keratosis with irritation on left cheek - left yarsani - croptherapy on these two lesions - [...] Date ADMIN INFLUENZA VIRU S VAC CPT-4: G6273Limanee 05/22/2016 FLU VACC 4 TELLY 3 YRS PLUS IM Formatting Model/CDA Sections, Assigned to/Angela Clemons SNOMED CT: 03791480 CPT-4: 90648Mfbhzxb 05/22/2016 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 3-[address]: 832856044 CPT-4: W6592Rmuhcxr 11/25/2015 URINALYSIS NONAUTO W /O SCOPE CPT-4: 41834Ztwpheu 05/09/2015 TRIAMCINOLONE ACET I [place] NOS CPT-4: B2086Vrmtliw 04/12/2015 DESTRUCT PREMALG LES ION CPT-4: 36068Hylttox 03/07/2015 DESTRUCT PREMALG LES 2-14 CPT-4: 77048Hfodvst 03/07/2015 REMOVE IMPACTED EAR WAX UNI CPT-4: 25256Aruvlun 12/31/2014 THER/PROPH/DIAG INJ SC/IM CPT-4: 66342Eynwdfp 12/23/2014 TRIAMCINOLONE ACET I [place] NOS CPT-4: J9306Xcipmfs 12/23/2014 Vital Signs Date Vital 02/19/2017 Blood Pressure 1: 138/64 Code: 8480-6 BMI: 21.3 Code: 65688-2 Heart Rate 1: 52 bpm Height: 5'11" SpO2: 96% Weight: 152 lbs 8 oz 01/21/2017 Blood Pressure 1: 160/68 Code: 8480-6 BMI: 21.3 Code: 00225-8 Heart Rate 1: 62 bpm Height: 5'11" SpO2: 96% Weight: 153 lbs 12/20/2016 Blood Pressure 1: 124/66 Code: 8480-6 BMI: 21.5 Code: 89159-8 Height: 5'11" Weight: 154 lbs 08/23/2016 Blood Pressure 1: 142/52 Code: 8480-6 BMI: 21.2 Code: 79794-5 Heart Rate 1: 54 bpm Height: 5'11" SpO2: 96% Weight: 152 lbs 05/22/2016 Blood Pressure 1: 130/76 Code: 8480-6 BMI: 21.5 Code: 58906-9 Heart Rate 1: 78 bpm Height: 5'11" SpO2: 92% Weight: 154 lbs 02/24/2016 Blood Pressure 1: 128/80 Code: 8480-6 BMI: 21.2 Code: 79756-4 Heart Rate 1: 74 bpm Height: 5'11" SpO2: 96% Weight: 152 lbs 01/27/2016 Blood Pressure 1: 144/60 Code: 8480-6 BMI: 21.2 Code: 68742-1 Heart Rate 1: 74 bpm Height: 5'11" SpO2: 97% Weight: 152 lbs 11/25/2015 Blood Pressure 1: 110/52 Code: 8480-6 BMI: 21.9 Code: 56659-2 Heart Rate 1: 65 bpm Height: 5'11" SpO2: 92% Weight: 157 lbs 07/28/2015 Blood Pressure 1: 138/62 Code: 8480-6 BMI: 21.8 Code: 84013-1 Heart Rate 1: 63 bpm Height: 5'11" SpO2: 91% Weight: 156 lbs 05/26/2015 Blood Pressure 1: 120/58 Code: 8480-6 BMI: 21.5 Code: 93836-5 Heart Rate 1: 99 bpm Height: 5'11" SpO2: 96% Weight: 154 lbs 05/06/2015 Blood Pressure 1: 120/58 Code: 8480-6 BMI: 21.2 Code: 27894-5 Heart Rate 1: 66 bpm Height: 5'11" SpO2: 96% Weight: 152 lbs 04/25/2015 Blood Pressure 1: 136/62 Code: 8480-6 BMI: 21.2 Code: 01828-5 Heart Rate 1: 63 bpm Height: 5'11" SpO2: 97% Weight: 152 lbs 04/12/2015 Blood Pressure 1: 160/58 Code: 8480-6 BMI: 21.6 Code: 16377-2 Heart Rate 1: 62 bpm Height: 5'11" Weight: 155 lbs 03/24/2015 Blood Pressure 1: 138/68 Code: 8480-6 BMI: 22.0 Code: 13635-0 Heart Rate 1: 65 bpm Height: 5'11" SpO2: 96% Weight: 158 lbs 03/07/2015 Blood Pressure 1: 116/52 Code: 8480-6 BMI: 22.2 Code: 43751-5 Heart Rate 1: 64 bpm Height: 5'11" SpO2: 97% Weight: 159 lbs 02/17/2015 Blood Pressure 1: 148/58 Code: 8480-6 BMI: 21.3 Code: 14129-0 Heart Rate 1: 63 bpm Height: 5'11" SpO2: 97% Weight: 153 lbs 12/31/2014 Blood Pressure 1: 100/60 Code: 8480-6 BMI: 21.8 Code: 92026-2 Heart Rate 1: 68 bpm Height: 5'11" Weight: 156 lbs 12/23/2014 Blood Pressure 1: 148/64 Code: 8480-6 BMI: 21.9 Code: 12626-4 Heart Rate 1: 64 bpm Height: 5'11" [...] daily 11/25/2015 None cough Location [facility] 11/25/2015 None cough Quality acute 11/25/2015 [...] Encounters Encounter Performer Loca tion Codes Date ([id number]) [id number] EST. P ATIENT, LEVEL IV Diagnosis: Type 2 diabetes mellitus with hyperglycemia[ICD10: E11.65] Diagnosis: Essential (primary) hypertension[ICD10: I10] Diagnosis: Anemia, unspecified[ICD10: D64.9] Karmen Ash MD, [facility] CPT- 4: 60256 02/19/2017 ([id number]) 49565 EST. P ATIENT, LEVEL IV Diagnosis: Slow transit constipation[ICD10: K59.01] Diagnosis: Gastro-esophageal reflux disease without esophagitis[ICD10: K21.9] Diagnosis: Essential (primary) hypertension[ICD10: I10] Karmen Ash MD, [facility] CPT-4: 38889 01/21/2017 ([id number]) 65534 EST. P ATIENT, LEVEL IV Diagnosis: Type 2 diabetes mellitus with hyperglycemia[ICD10: E11.65] Diagnosis: Vitamin D deficiency, unspecified[ICD10: E55.9] Diagnosis: Essential (primary) hypertension[ICD10: I10] Diagnosis: Chronic obstructive pulmonary disease, unspecified[ICD10: J44.9] Karmen Ash MD, [facility] CPT-4: 93497 12/20/2016 ([id number]) 84909 EST. P ATIENT, LEVEL IV Diagnosis: Type 2 diabetes mellitus with hyperglycemia[ICD10: E11.65] Diagnosis: Essential (primary) hypertension[ICD10: I10] Diagnosis: Mixed hyperlipidemia[ICD10: E78.2] Diagnosis: Vitamin D deficiency, unspecified[ICD10: E55.9] Karmen Ash MD, [facility] CPT-4: 74520 08/23/2016 ([id number]) 22692 EST. P ATIENT, LEVEL IV Diagnosis: Type 2 diabetes mellitus with hyperglycemia[ICD10: E11.65] Diagnosis: Essential (primary) hypertension[ICD10: I10] Diagnosis: Chronic obstructive pulmonary disease, unspecified[ICD10: J44.9] [facility] CPT-4: 71217 05/22/2016 ([id number]) 03623 EST. P ATIENT, LEVEL III Diagnosis: Dysuria[ICD10: R30.0] Diagnosis: Essential (primary) hypertension[ICD10: I10] [facility] CPT-4: 64959 02/24/2016 ([id number]) 35431 EST. P ATIENT, LEVEL IV Diagnosis: Gastro-esophageal reflux disease without esophagitis[ICD10: K21.9] Diagnosis: Slow transit constipation[ICD10: K59.01] Diagnosis: Type 2 diabetes mellitus with hyperglycemia[ICD10: E11.65] [facility] CPT-4: 17959 01/27/2016 ([id number]) 27035 EST. P ATIENT, LEVEL IV Diagnosis: Essential (primary) hypertension[ICD10: I10] Diagnosis: Type 2 diabetes mellitus with hyperglycemia[ICD10: E11.65] Diagnosis: Vitamin D deficiency, unspecified[ICD10: E55.9] Diagnosis: Chronic obstructive pulmonary disease, unspecified[ICD10: J44.9] Diagnosis: Mixed hyperlipidemia[ICD10: E78.2] Diagnosis: Tobacco use[ICD10: Z72.0] Karmen Ash MD, [facility] CPT- 4: 52282 11/25/2015 ([id number]) 28519 EST. P ATIENT, LEVEL IV Diagnosis: Type 2 diabetes mellitus with hyperglycemia[ICD10: E11.65] Diagnosis: Essential (primary) hypertension[ICD10: I10] Diagnosis: Vitamin D deficiency, unspecified[ICD10: E55.9] Karmen Ash MD, [facility] CPT-4: 23557 07/28/2015 ([id number]) 37513 EST. P ATIENT, LEVEL III Diagnosis: Type 2 diabetes mellitus with hyperglycemia[ICD10: E11.65] Diagnosis: Essential (primary) hypertension[ICD10: I10] Violeta Ash MD, [facility] CPT-4: 89250 05/26/2015 ([id number]) 65551 EST. P ATIENT, LEVEL III Diagnosis: DIABETES TYPE II[ICD9: 250.00] Diagnosis: COPD (chronic obstructive pulmonary disease)[ICD9: 496] Diagnosis: ESSENTIAL HYPERTENSION[ICD9: 401.9] Diagnosis: Cough[ICD9: 786.2] Violeta Ash MD, [facility] CPT-4: 64128 05/06/2015 ([id number]) 07404 EST. P ATIENT, LEVEL III Diagnosis: COPD (chronic obstructive pulmonary disease)[ICD9: 496] Diagnosis: DIABETES TYPE II[ICD9: 250.00] Diagnosis: Muscle ache[ICD9: 729.1] Karmen Ash MD, [facility] CPT- 4: 46415 04/25/2015 ([id number]) 74477 EST. P ATIENT, LEVEL III Diagnosis: ACTINIC KERATOSIS[ICD9: 702.0] Diagnosis: COPD (chronic obstructive pulmonary disease)[ICD9: 496] Diagnosis: DIABETES TYPE II[ICD9: 250.00] Diagnosis: ACUTE URI[ICD9: 465.9] Violeta Ash MD, [facility] CPT-4: 33043 04/12/2015 ([id number]) 16461 EST. P ATIENT, LEVEL III Diagnosis: DIABETES TYPE II[ICD9: 250.00] Violeta Ash MD [facility] CPT-4: 74339 03/24/2015 ([id number]) 12963 EST. P ATIENT, LEVEL IV Diagnosis: DIABETES TYPE II[ICD9: 250.00] Diagnosis: Hypoglycemia[ICD9: 251.2] Diagnosis: Skin texture changes[ICD9: 782.8] Violeta Ash MD, [facility] CPT-4: 66078 03/07/2015 ([id number]) 62233 EST. P ATIENT, LEVEL IV Diagnosis: COPD (chronic obstructive pulmonary disease)[ICD9: 496] Diagnosis: Fatigue[ICD9: 780.79] Diagnosis: Insulin dependent diabetes mellitus[ICD9: 250.00] Diagnosis: Unsteady gait[ICD9: 781.2] Maame Ash MD, [facility] CPT-4: 82772 02/17/2015 ([id number]) 82135 EST. P ATIENT, LEVEL IV Diagnosis: BPPV (benign paroxysmal positional vertigo)[ICD9: 386.11] Diagnosis: Impacted cerumen[ICD9: 380.4] Diagnosis: ESSENTIAL HYPERTENSION[ICD9: 401.9] Diagnosis: Insulin dependent diabetes mellitus[ICD9: 250.00] Karmen Ash MD, [facility] CPT-4: 68106 12/23/2014 ([id number]) [facility] - LEVEL 4 Diagnosis: Insulin dependent diabetes mellitus[ICD9: 250.00] Diagnosis: BPPV (benign paroxysmal positional vertigo)[ICD9: 386.11] Diagnosis: COPD (chronic obstructive pulmonary disease)[ICD9: 496] Diagnosis: Tobacco abuse[ICD9: 305.1] Diagnosis: Osteoarthritis[ICD9: 715.90] Karmen Ash MD, [facility] CPT- 4: 49644 12/09/2014 Plan of Care Planned Activity Notes [...] glucose readings are starting to become less controlled.Nlssxv-kkbqtgv-zjqbi labs 02/19/2017 Appointment: [facility] [phone] [phone] (30 min) Complex 02/19/2017 Patient Education: Patient [...] month 01/21/2017 Appointment: [facility] [phone] [phone] (30 min) Complex 01/21/2017 Patient Education: Patient Medication Summary Completed 01/21/2017 Patient Education: Smoking and Tobacco Addiction Completed 01/21/2017 Patient Education: Hypertension Completed 01/21/2017 Care Plan: Referral Order SNOMED-CT : [id number] Pending 01/21/2017 Visit Plan: Diabetes Mellitus - [...] changes. 12/20/2016 Appointment: Karmen Espinal WPtel: [phone] (30 min) Complex 12/20/2016 Patient Education: Patient Medication Summary Completed 12/20/2016 Patient Education: Smoking and Tobacco Addiction Completed 12/20/2016 Patient Education: Hypertension Completed 12/20/2016 Appointment: Karmen Espinal WPtel: [phone] (30 min) Complex 09/06/2016 Visit Plan: Diabetes [...] level 08/23/2016 Appointment: Karmen Espinal WPtel: [phone] [phone] (30 min) Complex 08/23/2016 Patient Education: [...] changes. 05/22/2016 Appointment: [facility] Espinal [facility]el[facility] [phone] [phone] (30 min) Complex 05/22/2016 Patient Education: Patient Medication Summary Completed 05/22/2016 Patient Education: Smoking and Tobacco Addiction Completed 05/22/2016 Care Plan: Cbc With Differential Ordered 05/22/2016 Care Plan: %Hba1C KIKI C : 35735-4 Ordered 05/22/2016 Care Plan: Tsh Ordered 05/22/2016 [...] update 02/24/2016 Appointment: Karmen Espinal WPtel: [phone] [phone] (30 min) Complex 02/24/2016 Patient Education: [...] regimen. 01/27/2016 Appointment: [facility] [phone] [phone] (30 min) Complex 01/27/2016 Patient Education: Patient [...] use medication to assist cess ation.COPD-sample of [employer] Hyperlipidemia - pt has been counseled about [...] POTENTIAL SIDE EFFECTS AND WORSENING OF SYMPTOMS. Ieqgkgzy-jsalxwcc-UHHE SIMVASTATIN X 2 WEEKS AND CALL WITH [...] Care Plan: COMPLETE CBC AUTOMATED LOINC : 89158-2 Ordered 03/24/2015 Visit Plan: Diabetes Mellitus - [...] for removal. 03/07/2015 Appointment: Violeta Ash WPtel: [address] [place], [place] [phone] (15 min) Moderate 03/07/2015 Patient Education: Patient [...] Care Plan: COMPLETE CBC AUTOMATED LOINC : 60698-1 Ordered 12/23/2014 Visit Plan: BPPV - Benign [...] next appt 2014 Appointment: Karmen Espinal WPtel: [phone] [place] New Patient 12/09/2014 Patient Education: [...] readings are starting to become less controlled. Wnvhsy-vijjjdn-mbutz labs decrease glipizide t o 5mg twice [...] POTENTIAL SIDE EFFECTS AND WORSENING OF SYMPTOMS. Eeatrkoh-grcamyix-YUPD SIMVASTATIN X 2 WEEKS AND CALL WITH [...]
[2020-03-29] MEDS ORDERED: HURRICAINE EXT TUBE (BENZOCAINE) ONE (08:28)
--- OUTSIDE RECORDS SUMMARY | 2020-03-29 08:28 | XMS REPORT | CCD ---
Author Author Dick Espinal Organization Violeta Ash MD, [facility] Address [address] [place] [address] Phone Care Team Providers Care Tan Room Supervisor Name Role Phone PP Unavailable CCM Unavailable Summary Purpose Interface Exchange Insurance Providers Payer name Policy type / Coverage type Covered libertarian ID Effective Begin Date Effective End Date WPS Medicare Part B Medicare Part B [id number] Unknown Unknown [employer] e Part B [id number] Unknown Unkn own Family history Father Diagnosis Age At Onset Cancer Unknown Mother Diagnosis Age At Onset Cancer Unknown Social History Social History Element Codes Description Effective Dates Marital status Unknown M arried 12/09/2014 Employment Unknown Retir ed 12/09/[address]: 62993648 Currently smokes tobacco 12/09/2014 Number of years using tobacco Unknown > 50 12/09/2014 Number of cigarettes/day Unknown 30 (Pack and a half) 12/09/[address]: 435426733 Never drinks alcohol 12/09/2014 Allergies, Adverse Reactions, [...] Protonix 40 mg table t,delayed release RxNorm: 573260 Tablet(s) Take 1 tabl et by mouth BID 02/19/2017 06/18/2017 Active Protonix 40 mg table t,delayed release RxNorm: 540836 Tablet(s) Take 1 tabl et by mouth BID 02/19/2017 02/18/2017 Inactive lisinopril 10 mg tablet RxNorm: 447792 Take 1 tablet by mouth daily 01/29/2017 07/27/2017 Active - First Attempt Ref: [id number] hydrocodone 5 mg-linh taminophen 325 mg tablet RxNorm: 654273 1 Tablet(s) PO Q6-8H as needed 01/25/2017 02/26/2017 Active simvastatin 40 mg ta blet RxNorm: 021014 Tablet(s) Take 1 tabl et by mouth daily at bedtime 01/03/2017 12/28/2017 Active lisinopril 10 mg tablet RxNorm: 164694 Tablet(s) Take 1 tablet by mouth daily 01/03/2017 01/28/2017 In active Protonix 40 mg table t,delayed release RxNorm: 445346 Tablet(s) Take 1 tabl et by mouth daily 12/28/2016 02/18/2017 Inactive hydrocodone 5 mg-linh taminophen 325 mg tablet RxNorm: 318456 1 Tablet(s) PO Q6-8H as needed 12/26/2016 01/24/2017 Inactive Xanax 0.5 mg tablet RxNorm: 644007 1 Tablet(s) PO TID 12/12/2016 03/11/2017 Active simvastatin 40 mg ta blet RxNorm: 904990 Tablet(s) Take 1 tabl et by mouth daily at bedtime 11/30/2016 01/02/2017 Inactive simvastatin 40 mg ta blet RxNorm: 891385 Take 1 tablet by mout h daily at bedtime 11/29/2016 11/29/2016 In active - First Attempt Ref: [id number] Protonix 40 mg table t,delayed release RxNorm: 611614 Take 1 tablet by mout h daily 11/27/2016 12/27/2016 In active - First Attempt Ref: [id number] hydrocodone 5 mg-linh taminophen 325 mg tablet RxNorm: 886237 1 Tablet(s) PO Q6-8H as needed 11/26/2016 12/25/2016 Inactive hydrocodone 5 mg-lihn taminophen 325 mg tablet RxNorm: 571697 1 Tablet(s) PO Q8 as needed 10/24/2016 11/25/2016 Inactive Xanax 0.5 mg tablet RxNorm: 133920 1 Tablet(s) PO TID 10/09/2016 12/25/2016 Inactive hydrocodone 5 mg-linh taminophen 325 mg tablet RxNorm: 978268 1 Tablet(s) PO Q8 as needed 09/27/2016 10/23/2016 Inactive lisinopril 10 mg tablet RxNorm: 047364 Take 1 tablet by mouth daily 09/25/2016 01/02/2017 Inactive - First Attempt Ref: [id number] Vitamin D2 50,000 un it capsule RxNorm: 687076 1 Capsule(s) PO QW 09/06/2016 No Stop Date Active hydrocodone 5 mg-linh taminophen 325 mg tablet RxNorm: 950086 1 Tablet(s) PO Q8 as needed 08/28/2016 09/26/2016 Inactive Toujeo SoloStar 300 unit/mL (1.5 mL) subcutaneous insulin pen RxNorm: 2865529 25 Unit(s) SQ QHS 08/23/2016 No Stop Date Active dosage increase hydrocodone 5 mg-linh taminophen 325 mg tablet RxNorm: 067117 1 Tablet(s) PO Q8 as needed 07/26/2016 08/27/2016 Inactive Protonix 40 mg table t,delayed release RxNorm: 366150 Take 1 tablet by mout h daily 07/24/2016 11/26/2016 In active - First Attempt Ref: [id number] hydrocodone 5 mg-linh taminophen 325 mg tablet RxNorm: 030587 1 Tablet(s) PO Q8 as needed 06/19/2016 07/21/2016 Inactive Toujeo SoloStar 300 unit/mL (1.5 mL) subcutaneous insulin pen RxNorm: 0719050 32 Unit(s) SQ QHS 05/30/2016 08/22/2016 Inactive dosage increase hydrocodone 5 mg-linh taminophen 325 mg tablet RxNorm: 229554 1 Tablet(s) PO Q8 as needed 05/22/2016 06/18/2016 Inactive hydrocodone 5 mg-linh taminophen 325 mg tablet RxNorm: 407780 1 Tablet(s) PO Q8 as needed 04/18/2016 05/17/2016 Inactive Protonix 40 mg table t,delayed release RxNorm: 459370 Take 1 tablet by mout h daily 04/05/2016 07/03/2016 In active - Ref: [id number] metformin 500 mg tablet RxNorm: 449396 Take 1 tablet by mouth daily 04/04/2016 07/02/2016 Inactive - Ref: [id number] Xanax 0.5 mg tablet RxNorm: 304375 1 Tablet(s) PO TID 03/30/2016 09/25/2016 Inactive Xanax 0.5 mg tablet RxNorm: 400901 1 Tablet(s) PO TID 03/23/2016 12/25/2016 Inactive hydrocodone 5 mg-linh taminophen 325 mg tablet RxNorm: 297162 1 Tablet(s) PO Q8 as needed 03/06/2016 04/04/2016 Inactive Cipro 500 mg tablet RxNorm: 145607 1 Tablet(s) PO BID 02/24/2016 03/04/2016 Inactive Miralax 17 gram oral powder packet RxNorm: 310828 1 packet PO every oth er day 01/27/2016 No Stop Date Active hydrocodone 5 mg-linh taminophen 325 mg tablet RxNorm: 669498 1 Tablet(s) PO Q8 as needed 01/27/2016 02/25/2016 Inactive lisinopril 10 mg tablet RxNorm: 659889 1 Tablet(s) PO daily 01/12/2016 09/24/2016 Inactive simvastatin 40 mg ta blet RxNorm: 528026 1 Tablet(s) PO QHS 01/12/2016 11/28/2016 Inactive simvastatin 40 mg ta blet RxNorm: 845792 1 Tablet(s) PO QHS 01/11/2016 01/11/2016 Inactive lisinopril 10 mg tablet RxNorm: 736659 1 Tablet(s) PO daily 01/06/2016 01/11/2016 Inactive simvastatin 40 mg ta blet RxNorm: 590896 1 Tablet(s) PO daily 12/28/2015 01/10/2016 Inactive hydrocodone 5 mg-linh taminophen 325 mg tablet RxNorm: 146651 1 Tablet(s) PO Q8 as needed 12/27/2015 01/26/2016 Inactive Xanax 0.5 mg tablet RxNorm: 622909 1 Tablet(s) PO TID 11/30/2015 03/29/2016 Inactive meclizine 25 mg tablet RxNorm: 493548 1 Tablet(s) PO Q6 PRN TAKE ONE TABLET BY MOUTH EVERY 6 HOURS NEEDED 11/25/2015 02/22/2016 Inactive Toujeo SoloStar 300 unit/mL (1.5 mL) subcutaneous insulin pen RxNorm: 9006563 30 Unit(s) SQ QHS 11/25/2015 05/29/2016 Inactive dosage increase omeprazole 20 mg cap jacquelyn,delayed release RxNorm: 187078 1 Capsule(s) PO daily 10/06/2015 01/26/2016 In active Toujeo SoloStar 300 unit/mL (1.5 mL) subcutaneous insulin pen RxNorm: 2462285 35 Unit(s) SQ QHS 08/02/2015 11/24/2015 Inactive dosage increase Vitamin D2 50,000 un it capsule RxNorm: 058282 1 Capsule(s) PO QW 08/02/2015 09/05/2016 Inactive hydrocodone 5 mg-linh taminophen 325 mg tablet RxNorm: 143622 1 Tablet(s) PO Q8 as needed 07/11/2015 12/26/2015 Inactive Xanax 0.5 mg tablet RxNorm: 015625 1 Tablet(s) PO TID 06/30/2015 06/29/2015 Inactive Xanax 0.5 mg tablet RxNorm: 167515 1 Tablet(s) PO TID 06/30/2015 12/25/2015 Inactive hydrocodone 5 mg-linh taminophen 325 mg tablet RxNorm: 276546 1 Tablet(s) PO Q8 as needed 05/06/2015 07/10/2015 Inactive Symbicort 160 mcg-4. 5 mcg/actuation HFA aerosol inhaler RxNorm: 4680305 INH 04/25/2015 No Stop Date Active Levemir FlexTouch 10 0 unit/mL (3 mL) subcutaneous insulin pen RxNorm: 606751 30 Unit(s) SQ QHS 04/25/2015 11/24/2015 Inactive prednisone 20 mg tablet RxNorm: 621950 1 Tablet(s) PO BID 04/25/2015 04/29/2015 Inactive metformin 500 mg tablet RxNorm: 419849 1 Tablet(s) PO daily 04/25/2015 04/03/2016 Inactive amoxicillin 500 mg c apsule RxNorm: 401970 1 Capsule(s) PO TID 04/14/2015 04/13/2015 Inactive amoxicillin 500 mg c apsule RxNorm: 117489 1 Capsule(s) PO TID a nd recommend probiotic tid (otc) 04/14/2015 04/20/2015 Inactive Kenalog 40 mg/mL bartolome pension for injection RxNorm: 7296933 Milliliter(s) Inj 04/12/2015 04/12/2015 In active hydrocodone 5 mg-linh taminophen 325 mg tablet RxNorm: 180875 1 Tablet(s) PO Q8 as needed 03/30/2015 05/05/2015 Inactive Lantus 100 unit/mL s ubcutaneous solution RxNorm: 794949 25 Unit(s) SQ QPM 03/24/2015 04/25/2015 In active meclizine 25 mg tablet RxNorm: 088912 Tablet(s) TAKE ONE TABLET BY MOUTH EVERY 6 HOURS NEEDED 03/08/2015 04/06/2015 Inactive meclizine 25 mg tablet RxNorm: 627441 TAKE ONE TABLET BY MOUTH EVERY 6 HOURS A S NEEDED 02/25/2015 03/03/2015 Inactive Lantus 100 unit/mL s ubcutaneous solution RxNorm: 383386 20 Unit(s) SQ QPM 02/23/2015 03/23/2015 In active Lantus 100 unit/mL s ubcutaneous solution RxNorm: 862310 25 Unit(s) SQ QPM 02/23/2015 02/22/2015 In active hydrocodone 5 mg-linh taminophen 325 mg tablet RxNorm: 915956 1 Tablet(s) PO Q8 as needed 02/17/2015 03/29/2015 Inactive Xanax 0.5 mg tablet RxNorm: 399418 1 Tablet(s) PO TID 02/03/2015 06/29/2015 Inactive Lantus 100 unit/mL s ubcutaneous solution RxNorm: 791688 20 Unit(s) SQ QPM 12/29/2014 02/22/2015 In active Phenergan 12.5 mg re ctal suppository RxNorm: 558963 1 Suppository RTL Q6 PRN 12/23/2014 No Stop Date Active nausea Kenalog 40 mg/mL bartolome pension for injection RxNorm: 8353411 Milliliter(s) Inj 12/23/2014 12/23/2014 In active prednisone 20 mg tablet RxNorm: 357652 2 Tablet(s) PO daily 12/13/2014 12/17/2014 Inactive prednisone 20 mg tablet RxNorm: 677874 2 Tablet(s) PO daily 12/13/2014 12/12/2014 Inactive meclizine 25 mg tablet RxNorm: 509979 1 Tablet(s) PO Q6 PRN 12/09/2014 02/24/2015 Inactive hydrocodone 5 mg-linh taminophen 325 mg tablet RxNorm: 388765 1 Tablet(s) PO Q8 as needed 12/09/2014 02/16/2015 Inactive Vitamin B-12 1,000 m cg/mL oral drops RxNorm: 9113709 1 Milliliter(s) PO d aily No Start Date Active Alphagan P 0.1 % eye drops RxNorm: 359935 1 Drop(s) OPH BID No Start Date Active aspirin 325 mg table t,delayed release RxNorm: 007799 1 Tablet(s) PO daily No Start Date Active Tricor 145 mg tablet RxNorm: 913823 1 Tablet(s) PO daily No Start Date Active vitamin Q32-bjjjnzp B1 oral liquid RxNorm: 1,000 Microgram(s) PO daily No Start Date Active atenolol 50 mg tablet RxNorm: 897852 1 Tablet(s) PO daily No Start Date Active Protonix 40 mg table t,delayed release RxNorm: 717922 1 Tablet(s) PO daily No Start Date 04/04/2016 Inactive glipizide 10 mg tablet RxNorm: 306590 1 Tablet(s) PO BID No Start Date 03/22/2015 Inactive Lantus 100 unit/mL s ubcutaneous solution RxNorm: 398834 15 Unit(s) SQ QPM No Start Date 12/28/2014 Inactive lisinopril 10 mg tablet RxNorm: 707415 1 Tablet(s) PO daily No Start Date 01/05/2016 Inactive Vitamin D2 50,000 un it capsule RxNorm: 984345 1 Capsule(s) PO QW No Start Date 08/01/2015 Inactive Toujeo SoloStar 300 unit/mL (1.5 mL) subcutaneous insulin pen RxNorm: 5614856 30 Unit(s) SQ QHS No Start Date 08/01/2015 Inactive simvastatin 40 mg ta blet RxNorm: 752235 1 Tablet(s) PO daily No Start Date 12/27/2015 Inactive hydrocodone 5 mg-linh taminophen 325 mg tablet RxNorm: 238488 1 Tablet(s) PO Q8 as needed No Start Date 12/08/2014 Inactive metformin 500 mg tablet RxNorm: 235177 1 Tablet(s) PO daily No Start Date 04/24/2015 Inactive omeprazole 20 mg cap jacquelyn,delayed release RxNorm: 692738 1 Capsule(s) PO daily No Start Date 10/05/2015 Inactive Flomax 0.4 mg capsule RxNorm: 339740 1 Capsule(s) PO daily No Start Date 03/23/2015 Inactive Medication Administered Medication Codes Instruc tions Start Date Status Kenalog 40 mg/mL suspension for injection RxNorm: 6305406 Milliliter 04/12/2015 No longer Active Kenalog 40 mg/mL suspension for injection RxNorm: 6495510 Milliliter 12/23/2014 No longer Active Immunizations Vaccine Codes Date Status Influenza CVX: 141 05/22 completed Assessments Condition Codes Effectiv e Dates Type 2 diabetes mellitus with hyperglycemia ICD-10: E11.65 ICD-9: 250.00 02/19/2017 Essential (primary) hypertension ICD -10: I10 ICD-9: 401.9 02/19/2017 Anemia, unspecified ICD-10: D64.9 ICD-9: 285.9 02/19/2017 Slow transit constipation ICD-10: K5 9.01 [...] Result Date Cbc With Differential Ord2 WBC 8.52 K/ul [...] 35.7 pg 02/20/2017 Cbc With Differential Ord2 [place]% 6.3 % 02/20/2017 Cbc With Differential Ord2 [...] 3.19 K/ul 02/20/2017 Cbc With Differential Ord2 [place] ABS# 0.5 K/ul 02/20/2017 Cbc With Differential Ord2 Eos ABS# 0.4 K/ul 02/20/2017 Cbc With Differential Ord2 Baso ABS# 0.0 K/ul 02/20/2017 Comp Metabolic Tmg562 NA 138 mEq/L 02/20/2017 Comp Metabolic Vux649 K 4.5 mEq/L 02/20/2017 Comp Metabolic Oxu538 CL 101 mEq/L 02/20/2017 Comp Metabolic Iin274 CO2 31.0 mEq/L 02/20/2017 Comp Metabolic Pql222 AN ION GAP 11 02/20/2017 Comp Metabolic Msz604 GL UCOSE 120 mg/dL 02/20/2017 Comp Metabolic Ehi434 Cr eat 0.9 mg/dL 02/20/2017 Comp Metabolic Aze104 eG FR 83 ml/min/1.73m2 02/20 Comp Metabolic Zpv051 BUN 15 mg/dL 02/20/2017 Comp Metabolic Qpe365 B/ C Ratio 16.1 Ratio 02/20/2017 Comp Metabolic Pfu971 CA LCIUM 9.1 mg/dL 02/20/2017 Comp Metabolic Srv486 AL K PHOS 67 U/L 02/20/2017 Comp Metabolic Ywp991 T(SGOT) 15 U/L 02/20/2017 Comp Metabolic Cfg014 AL T(SGPT) 16 U/L 02/20/2017 Comp Metabolic Jmc010 BI LI T 0.5 mg/dL 02/20/2017 Comp Metabolic Aff149 AL BUMIN 4.0 g/dL 02/20/2017 Comp Metabolic Huv078 TP RO 6.4 g/dL 02/20/2017 Comp Metabolic Eww631 GL OB 2.4 g/dL 02/20/2017 Comp Metabolic Nod040 A/ G Ratio 1.7 Ratio 02/20/2017 Comp Metabolic Dkl190 Os mo 278 mOsmo 02/20/2017 Tsh Ord6 hTSH II 2.05 uIU/mL 02/20/2017 %Hba1C Dpb182 % HbA1c 28455-4 7.6 % 02/20/2017 %Hba1C Vpu856 Gluc Ave 171 mg/dL 02/20/2017 Vitamin D 25 Oh Oxi3499 VITAMIN D, 25 HYDROXY 44.40 ng/mL 12/21/2016 Comp Metabolic Mng188 NA 131 mEq/L 12/21/2016 Comp Metabolic Qvb429 K 4.2 mEq/L 12/21/2016 Comp Metabolic Xdl685 CL 97 mEq/L 12/21/2016 Comp Metabolic Fpv568 CO2 27.0 mEq/L 12/21/2016 Comp Metabolic Oia095 AN ION GAP 11 12/21/2016 Comp Metabolic Lwk756 GL UCOSE 266 mg/dL 12/21/2016 Comp Metabolic Sok036 Cr eat 0.9 mg/dL 12/21/2016 Comp Metabolic Jxx665 eG FR 88 ml/min/1.73m2 12/21 Comp Metabolic Yac638 BUN 12 mg/dL 12/21/2016 Comp Metabolic Apw388 B/ C Ratio 13.6 Ratio 12/21/2016 Comp Metabolic Ulc437 CA LCIUM 8.6 mg/dL 12/21/2016 Comp Metabolic Ftj057 AL K PHOS 69 U/L 12/21/2016 Comp Metabolic Rlp994 T(SGOT) 15 U/L 12/21/2016 Comp Metabolic Wgd134 AL T(SGPT) 14 U/L 12/21/2016 Comp Metabolic Aoc799 BI LI T 0.3 mg/dL 12/21/2016 Comp Metabolic Utx922 AL BUMIN 3.7 g/dL 12/21/2016 Comp Metabolic Pwk575 TP RO 5.9 g/dL 12/21/2016 Comp Metabolic Yvn144 GL OB 2.2 g/dL 12/21/2016 Comp Metabolic Hiq624 A/ G Ratio 1.7 Ratio 12/21/2016 Comp Metabolic Lvc335 Os mo 272 mOsmo 12/21/2016 Cbc With [...] 39.5 % 12/21/2016 Cbc With Differential Ord2 [place]% 6.9 % 12/21/2016 Cbc With Differential Ord2 [...] 2.05 K/ul 12/21/2016 Cbc With Differential Ord2 [place] ABS# 0.4 K/ul 12/21/2016 Cbc With Differential Ord2 Eos ABS# 0.2 K/ul 12/21/2016 Cbc With Differential Ord2 Baso ABS# 0.0 K/ul 12/21/2016 Comp Metabolic Fny037 NA 138 mEq/L 09/03/2016 Comp Metabolic Zwy945 K 4.5 mEq/L 09/03/2016 Comp Metabolic Dqg583 CL 102 mEq/L 09/03/2016 Comp Metabolic Vid247 CO2 30.0 mEq/L 09/03/2016 Comp Metabolic Wpo214 AN ION GAP 11 09/03/2016 Comp Metabolic Shg756 GL UCOSE 113 mg/dL 09/03/2016 Comp Metabolic Bsr560 Cr eat 1.0 mg/dL 09/03/2016 Comp Metabolic Njn853 eG FR 81 ml/min/1.73m2 09/03 Comp Metabolic Ftg821 BUN 10 mg/dL 09/03/2016 Comp Metabolic Zfq752 B/ C Ratio 10.5 Ratio 09/03/2016 Comp Metabolic Hff797 CA LCIUM 9.1 mg/dL 09/03/2016 Comp Metabolic Eie115 AL K PHOS 71 U/L 09/03/2016 Comp Metabolic Ufe539 T(SGOT) 18 U/L 09/03/2016 Comp Metabolic Fyq429 AL T(SGPT) 17 U/L 09/03/2016 Comp Metabolic Sab574 BI LI T 0.6 mg/dL 09/03/2016 Comp Metabolic Wyx968 AL BUMIN 4.1 g/dL 09/03/2016 Comp Metabolic Rim193 TP RO 6.4 g/dL 09/03/2016 Comp Metabolic Ylz463 GL OB 2.3 g/dL 09/03/2016 Comp Metabolic Yom927 A/ G Ratio 1.8 Ratio 09/03/2016 Comp Metabolic Wmx046 Os mo 276 mOsmo 09/03/2016 Vitamin D 25 Oh Qdf6406 VITAMIN D, 25 HYDROXY 28.23 ng/mL 09/03/2016 [...] 101.9 fl 09/03/2016 Cbc With Differential Ord2 [place]% 8.9 % 09/03/2016 Cbc With Differential Ord2 [...] 3.34 K/ul 09/03/2016 Cbc With Differential Ord2 [place] ABS# 0.7 K/ul 09/03/2016 Cbc With Differential Ord2 Eos ABS# 0.4 K/ul 09/03/2016 Cbc With Differential Ord2 Baso ABS# 0.0 K/ul 09/03/2016 Lipid Ord30 CHOL 120 mg/dL 09/03/2016 Lipid Ord30 HDL 33.0 mg/dl 09/03/2016 Lipid Ord30 TRIG 161 mg/dL 09/03/2016 Lipid Ord30 LDL 55 mg/dL 09/03/2016 Lipid Ord30 C/HDL 3.6 Ratio 09/03/2016 %Hba1C Czm197 % HbA1c 18548-8 7.5 % 09/03/2016 %Hba1C Ika371 Gluc Ave 169 mg/dL 09/03/2016 Tsh Ord6 hTSH II 1.50 uIU/mL 05/23/2016 %Hba1C Tuo293 % HbA1c 10324-5 7.6 % 05/23/2016 %Hba1C Shn594 Gluc Ave 171 mg/dL 05/23/2016 Comp Metabolic Mys363 NA 135 mEq/L 05/23/2016 Comp Metabolic Aza662 K 4.4 mEq/L 05/23/2016 Comp Metabolic Krg527 CL 99 mEq/L 05/23/2016 Comp Metabolic Bzh458 CO2 28.0 mEq/L 05/23/2016 Comp Metabolic Xtq600 AN ION GAP 12 05/23/2016 Comp Metabolic Ecp059 GL UCOSE 257 mg/dL 05/23/2016 Comp Metabolic Fef099 Cr eat 0.8 mg/dL 05/23/2016 Comp Metabolic Api634 eG FR 95 ml/min/1.73m2 05/23 Comp Metabolic Hpt115 BUN 11 mg/dL 05/23/2016 Comp Metabolic Ewi540 B/ C Ratio 13.3 Ratio 05/23/2016 Comp Metabolic Hym686 CA LCIUM 9.0 mg/dL 05/23/2016 Comp Metabolic Gqu403 AL K PHOS 82 U/L 05/23/2016 Comp Metabolic Rff367 T(SGOT) 21 U/L 05/23/2016 Comp Metabolic Gij696 AL T(SGPT) 20 U/L 05/23/2016 Comp Metabolic Nlu304 BI LI T 0.3 mg/dL 05/23/2016 Comp Metabolic Diy540 AL BUMIN 4.0 g/dL 05/23/2016 Comp Metabolic Fqo650 TP RO 6.4 g/dL 05/23/2016 Comp Metabolic Axq932 GL OB 2.4 g/dL 05/23/2016 Comp Metabolic Ruq730 A/ G Ratio 1.6 Ratio 05/23/2016 Comp Metabolic Mne178 Os mo 278 mOsmo 05/23/2016 Cbc With [...] 34.5 pg 05/23/2016 Cbc With Differential Ord2 [place]% 6.1 % 05/23/2016 Cbc With Differential Ord2 [...] 2.38 K/ul 05/23/2016 Cbc With Differential Ord2 [place] ABS# 0.4 K/ul 05/23/2016 Cbc With Differential Ord2 Eos ABS# 0.2 K/ul 05/23/2016 Cbc With Differential Ord2 Baso ABS# 0.0 K/ul 05/23/2016 B12 Wob712 B12 597.00 pg/ml 05/23/2016 Metabolic Ord15 NA [...] 0.92 uIU/mL 07/29/2015 Vitamin D 25 Oh Acc7125 VITAMIN D, 25 HYDROXY 26.93 ng/mL 07/29/2015 %Hba1C Phh034 % HbA1c 80899-5 8.8 % 07/29/2015 %Hba1C Bhp772 Gluc Ave 206 mg/dL 07/29/2015 Cbc With [...] Ord2 RDW 14.9 % 07/29/2015 Comp Metabolic Jpb337 NA 138 mEq/L 07/29/2015 Comp Metabolic Zki140 K 4.4 mEq/L 07/29/2015 Comp Metabolic Uku778 CL 102 mEq/L 07/29/2015 Comp Metabolic Wjx642 CO2 28.0 mEq/L 07/29/2015 Comp Metabolic Kru050 AN ION GAP 12 07/29/2015 Comp Metabolic Ilo466 GL UCOSE 261 mg/dL 07/29/2015 Comp Metabolic Kwv112 Cr eat 1.0 mg/dL 07/29/2015 Comp Metabolic Tua688 eG FR 77 ml/min/1.73m2 07/29 Comp Metabolic Skw008 BUN 13 mg/dL 07/29/2015 Comp Metabolic Xnd182 B/ C Ratio 13.0 Ratio 07/29/2015 Comp Metabolic Ipd505 CA LCIUM 9.1 mg/dL 07/29/2015 Comp Metabolic Dsp155 AL K PHOS 64 U/L 07/29/2015 Comp Metabolic Bne921 T(SGOT) 20 U/L 07/29/2015 Comp Metabolic Lsv692 AL T(SGPT) 22 U/L 07/29/2015 Comp Metabolic Jnj757 BI LI T 0.4 mg/dL 07/29/2015 Comp Metabolic Rzn009 AL BUMIN 4.0 g/dL 07/29/2015 Comp Metabolic Yoy449 TP RO 6.1 g/dL 07/29/2015 Comp Metabolic Dzq254 GL OB 2.1 g/dL 07/29/2015 Comp Metabolic Bmz909 A/ G Ratio 1.9 Ratio 07/29/2015 Comp Metabolic Wza540 Os mo 285 mOsmo 07/29/2015 Cbc With [...] Ord2 RDW 13.1 % 05/06/2015 Comp Metabolic Sol496 NA 134 mEq/L 05/06/2015 Comp Metabolic Jlp651 K 4.4 mEq/L 05/06/2015 Comp Metabolic Uqv463 CL 98 mEq/L 05/06/2015 Comp Metabolic Wzg813 CO2 29.0 mEq/L 05/06/2015 Comp Metabolic Pof652 AN ION GAP 11 05/06/2015 Comp Metabolic Sup216 GL UCOSE 321 mg/dL 05/06/2015 Comp Metabolic Kkb194 Cr eat 1.0 mg/dL 05/06/2015 Comp Metabolic Nfc579 eG FR 78 ml/min/1.73m2 05/06 Comp Metabolic Tcs093 BUN 20 mg/dL 05/06/2015 Comp Metabolic Aqq081 B/ C Ratio 20.4 Ratio 05/06/2015 Comp Metabolic Xcs103 CA LCIUM 9.5 mg/dL 05/06/2015 Comp Metabolic Mea399 AL K PHOS 62 U/L 05/06/2015 Comp Metabolic Tht405 T(SGOT) 21 U/L 05/06/2015 Comp Metabolic Trf767 AL T(SGPT) 37 U/L 05/06/2015 Comp Metabolic Flx651 BI LI T 0.4 mg/dL 05/06/2015 Comp Metabolic Whd852 AL BUMIN 3.8 g/dL 05/06/2015 Comp Metabolic Goi219 TP RO 6.1 g/dL 05/06/2015 Comp Metabolic Fih491 GL OB 2.3 g/dL 05/06/2015 Comp Metabolic Slk888 A/ G Ratio 1.7 Ratio 05/06/2015 Comp Metabolic Tjc822 Os mo 283 mOsmo 05/06/2015 Tsh Ord6 hTSH II 1.65 uIU/mL 02/18/2015 B12 Ufw782 B12 605.00 pg/ml 02/18/2015 %Hba1C Umg748 % HbA1c 95066-4 8.3 % 02/18/2015 %Hba1C Xlx196 Gluc Ave 192 mg/dL 02/18/2015 Cbc With [...] Ord2 RDW 13.9 % 02/17/2015 Comp Metabolic Tct044 NA 137 mEq/L 02/17/2015 Comp Metabolic Upd039 K 4.4 mEq/L 02/17/2015 Comp Metabolic Kyx104 CL 100 mEq/L 02/17/2015 Comp Metabolic Iya498 CO2 31.0 mEq/L 02/17/2015 Comp Metabolic Aza609 AN ION GAP 10 02/17/2015 Comp Metabolic Spo847 GL UCOSE 307 mg/dL 02/17/2015 Comp Metabolic Ibj328 Cr eat 1.0 mg/dL 02/17/2015 Comp Metabolic Yon753 eG FR 74 ml/min/1.73m2 02/17 Comp Metabolic Vpa782 BUN 22 mg/dL 02/17/2015 Comp Metabolic Fah765 B/ C Ratio 21.4 Ratio 02/17/2015 Comp Metabolic Ead472 CA LCIUM 9.5 mg/dL 02/17/2015 Comp Metabolic Cbz100 AL K PHOS 78 U/L 02/17/2015 Comp Metabolic Boi069 T(SGOT) 18 U/L 02/17/2015 Comp Metabolic Muv639 AL T(SGPT) 32 U/L 02/17/2015 Comp Metabolic Siy926 BI LI T 0.5 mg/dL 02/17/2015 Comp Metabolic Bvn182 AL BUMIN 4.3 g/dL 02/17/2015 Comp Metabolic Fce307 TP RO 6.7 g/dL 02/17/2015 Comp Metabolic Civ023 GL OB 2.4 g/dL 02/17/2015 Comp Metabolic Udd972 A/ G Ratio 1.8 Ratio 02/17/2015 Comp Metabolic Lxv652 Os mo 289 mOsmo 02/17/2015 Review of [...] accomodation 02/19/2017 None Full Exam - General 1995 [...] inspection of skin Location: face 03/07/2015 on holiness, cheeks,actinic keratosis with irritation on left cheek - left holiness - croptherapy on these two lesions - [...] Date ADMIN INFLUENZA VIRU S VAC CPT-4: K9705Ehylxyo 05/22/2016 FLU VACC 4 TELLY 3 YRS PLUS IM Formatting Model/CDA Sections, Assigned to/Angela Clemons SNOMED CT: 04606858 CPT-4: 21936Stcentv 05/22/2016 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 3-[address]: 168392410 CPT-4: X1455Vzqwydh 11/25/2015 URINALYSIS NONAUTO W /O SCOPE CPT-4: 61521Qvkubkh 05/09/2015 TRIAMCINOLONE ACET I [place] NOS CPT-4: F4139Uacsdbq 04/12/2015 DESTRUCT PREMALG LES ION CPT-4: 30844Uzumoth 03/07/2015 DESTRUCT PREMALG LES 2-14 CPT-4: 83795Hwpejgw 03/07/2015 REMOVE IMPACTED EAR WAX UNI CPT-4: 45467Bgfonyi 12/31/2014 THER/PROPH/DIAG INJ SC/IM CPT-4: 21997Oukqwpf 12/23/2014 TRIAMCINOLONE ACET I [place] NOS CPT-4: Y8034Jdfamto 12/23/2014 Vital Signs Date Vital 02/19/2017 Blood Pressure 1: 138/64 Code: 8480-6 BMI: 21.3 Code: 04690-7 Heart Rate 1: 52 bpm Height: 5'11" SpO2: 96% Weight: 152 lbs 8 oz 01/21/2017 Blood Pressure 1: 160/68 Code: 8480-6 BMI: 21.3 Code: 72248-9 Heart Rate 1: 62 bpm Height: 5'11" SpO2: 96% Weight: 153 lbs 12/20/2016 Blood Pressure 1: 124/66 Code: 8480-6 BMI: 21.5 Code: 02024-7 Height: 5'11" Weight: 154 lbs 08/23/2016 Blood Pressure 1: 142/52 Code: 8480-6 BMI: 21.2 Code: 57046-5 Heart Rate 1: 54 bpm Height: 5'11" SpO2: 96% Weight: 152 lbs 05/22/2016 Blood Pressure 1: 130/76 Code: 8480-6 BMI: 21.5 Code: 02327-4 Heart Rate 1: 78 bpm Height: 5'11" SpO2: 92% Weight: 154 lbs 02/24/2016 Blood Pressure 1: 128/80 Code: 8480-6 BMI: 21.2 Code: 21187-9 Heart Rate 1: 74 bpm Height: 5'11" SpO2: 96% Weight: 152 lbs 01/27/2016 Blood Pressure 1: 144/60 Code: 8480-6 BMI: 21.2 Code: 97779-5 Heart Rate 1: 74 bpm Height: 5'11" SpO2: 97% Weight: 152 lbs 11/25/2015 Blood Pressure 1: 110/52 Code: 8480-6 BMI: 21.9 Code: 50768-1 Heart Rate 1: 65 bpm Height: 5'11" SpO2: 92% Weight: 157 lbs 07/28/2015 Blood Pressure 1: 138/62 Code: 8480-6 BMI: 21.8 Code: 68688-1 Heart Rate 1: 63 bpm Height: 5'11" SpO2: 91% Weight: 156 lbs 05/26/2015 Blood Pressure 1: 120/58 Code: 8480-6 BMI: 21.5 Code: 63344-8 Heart Rate 1: 99 bpm Height: 5'11" SpO2: 96% Weight: 154 lbs 05/06/2015 Blood Pressure 1: 120/58 Code: 8480-6 BMI: 21.2 Code: 94078-4 Heart Rate 1: 66 bpm Height: 5'11" SpO2: 96% Weight: 152 lbs 04/25/2015 Blood Pressure 1: 136/62 Code: 8480-6 BMI: 21.2 Code: 36315-7 Heart Rate 1: 63 bpm Height: 5'11" SpO2: 97% Weight: 152 lbs 04/12/2015 Blood Pressure 1: 160/58 Code: 8480-6 BMI: 21.6 Code: 63339-9 Heart Rate 1: 62 bpm Height: 5'11" Weight: 155 lbs 03/24/2015 Blood Pressure 1: 138/68 Code: 8480-6 BMI: 22.0 Code: 47730-4 Heart Rate 1: 65 bpm Height: 5'11" SpO2: 96% Weight: 158 lbs 03/07/2015 Blood Pressure 1: 116/52 Code: 8480-6 BMI: 22.2 Code: 22829-8 Heart Rate 1: 64 bpm Height: 5'11" SpO2: 97% Weight: 159 lbs 02/17/2015 Blood Pressure 1: 148/58 Code: 8480-6 BMI: 21.3 Code: 09288-7 Heart Rate 1: 63 bpm Height: 5'11" SpO2: 97% Weight: 153 lbs 12/31/2014 Blood Pressure 1: 100/60 Code: 8480-6 BMI: 21.8 Code: 29988-1 Heart Rate 1: 68 bpm Height: 5'11" Weight: 156 lbs 12/23/2014 Blood Pressure 1: 148/64 Code: 8480-6 BMI: 21.9 Code: 32484-1 Heart Rate 1: 64 bpm Height: 5'11" [...] Encounters Encounter Performer Loca tion Codes Date ([id number]) 31511 EST. P ATIENT, LEVEL IV Diagnosis: Type 2 diabetes mellitus with hyperglycemia[ICD10: E11.65] Diagnosis: Essential (primary) hypertension[ICD10: I10] Diagnosis: Anemia, unspecified[ICD10: D64.9] Karmen Ash MD, [facility] CPT- 4: 98931 02/19/2017 ([id number]) 68012 EST. P ATIENT, LEVEL IV Diagnosis: Slow transit constipation[ICD10: K59.01] Diagnosis: Gastro-esophageal reflux disease without esophagitis[ICD10: K21.9] Diagnosis: Essential (primary) hypertension[ICD10: I10] [facility] CPT-4: 93624 01/21/2017 ([id number]) 79263 EST. P ATIENT, LEVEL IV Diagnosis: Type 2 diabetes mellitus with hyperglycemia[ICD10: E11.65] Diagnosis: Vitamin D deficiency, unspecified[ICD10: E55.9] Diagnosis: Essential (primary) hypertension[ICD10: I10] Diagnosis: Chronic obstructive pulmonary disease, unspecified[ICD10: J44.9] Karmen Ash MD, [facility] CPT-4: 06217 12/20/2016 ([id number]) 71425 EST. P ATIENT, LEVEL IV Diagnosis: Type 2 diabetes mellitus with hyperglycemia[ICD10: E11.65] Diagnosis: Essential (primary) hypertension[ICD10: I10] Diagnosis: Mixed hyperlipidemia[ICD10: E78.2] Diagnosis: Vitamin D deficiency, unspecified[ICD10: E55.9] Karmen Ash MD, [facility] CPT-4: 40157 08/23/2016 ([id number]) 92041 EST. P ATIENT, LEVEL IV Diagnosis: Type 2 diabetes mellitus with hyperglycemia[ICD10: E11.65] Diagnosis: Essential (primary) hypertension[ICD10: I10] Diagnosis: Chronic obstructive pulmonary disease, unspecified[ICD10: J44.9] [facility] CPT-4: 55789 05/22/2016 ([id number]) 06490 EST. P ATIENT, LEVEL III Diagnosis: Dysuria[ICD10: R30.0] Diagnosis: Essential (primary) hypertension[ICD10: I10] [facility] CPT-4: 27343 02/24/2016 ([id number]) 34285 EST. P ATIENT, LEVEL IV Diagnosis: Gastro-esophageal reflux disease without esophagitis[ICD10: K21.9] Diagnosis: Slow transit constipation[ICD10: K59.01] Diagnosis: Type 2 diabetes mellitus with hyperglycemia[ICD10: E11.65] [facility] CPT-4: 05038 01/27/2016 ([id number]) 19128 EST. P ATIENT, LEVEL IV Diagnosis: Essential (primary) hypertension[ICD10: I10] Diagnosis: Type 2 diabetes mellitus with hyperglycemia[ICD10: E11.65] Diagnosis: Vitamin D deficiency, unspecified[ICD10: E55.9] Diagnosis: Chronic obstructive pulmonary disease, unspecified[ICD10: J44.9] Diagnosis: Mixed hyperlipidemia[ICD10: E78.2] Diagnosis: Tobacco use[ICD10: Z72.0] Karmen Ash MD, [facility] CPT- 4: 51118 11/25/2015 ([id number]) 32879 EST. P ATIENT, LEVEL IV Diagnosis: Type 2 diabetes mellitus with hyperglycemia[ICD10: E11.65] Diagnosis: Essential (primary) hypertension[ICD10: I10] Diagnosis: Vitamin D deficiency, unspecified[ICD10: E55.9] Karmen Ash MD, [facility] CPT-4: 29525 07/28/2015 ([id number]) 52721 EST. P ATIENT, LEVEL III Diagnosis: Type 2 diabetes mellitus with hyperglycemia[ICD10: E11.65] Diagnosis: Essential (primary) hypertension[ICD10: I10] Violeta Ash MD, [facility] CPT-4: 41273 05/26/2015 ([id number]) 03094 EST. P ATIENT, LEVEL III Diagnosis: DIABETES TYPE II[ICD9: 250.00] Diagnosis: COPD (chronic obstructive pulmonary disease)[ICD9: 496] Diagnosis: ESSENTIAL HYPERTENSION[ICD9: 401.9] Diagnosis: Cough[ICD9: 786.2] Violeta Ash MD, [facility] CPT-4: 96818 05/06/2015 ([id number]) 36313 EST. P ATIENT, LEVEL III Diagnosis: COPD (chronic obstructive pulmonary disease)[ICD9: 496] Diagnosis: DIABETES TYPE II[ICD9: 250.00] Diagnosis: Muscle ache[ICD9: 729.1] Karmen Ash MD, [facility] CPT- 4: 83020 04/25/2015 ([id number]) 23545 EST. P ATIENT, LEVEL III Diagnosis: ACTINIC KERATOSIS[ICD9: 702.0] Diagnosis: COPD (chronic obstructive pulmonary disease)[ICD9: 496] Diagnosis: DIABETES TYPE II[ICD9: 250.00] Diagnosis: ACUTE URI[ICD9: 465.9] Violeta Ash MD, [facility] CPT-4: 34975 04/12/2015 ([id number]) 27290 EST. P ATIENT, LEVEL III Diagnosis: DIABETES TYPE II[ICD9: 250.00] [facility] CPT-4: 95702 03/24/2015 ([id number]) 47580 EST. P ATIENT, LEVEL IV Diagnosis: DIABETES TYPE II[ICD9: 250.00] Diagnosis: Hypoglycemia[ICD9: 251.2] Diagnosis: Skin texture changes[ICD9: 782.8] Violeta Ash MD, [facility] CPT-4: 11576 03/07/2015 ([id number]) 65845 EST. P ATIENT, LEVEL IV Diagnosis: COPD (chronic obstructive pulmonary disease)[ICD9: 496] Diagnosis: Fatigue[ICD9: 780.79] Diagnosis: Insulin dependent diabetes mellitus[ICD9: 250.00] Diagnosis: Unsteady gait[ICD9: 781.2] Maame Ash MD, [facility] CPT-4: 72034 02/17/2015 ([id number]) 42195 EST. P ATIENT, LEVEL IV Diagnosis: BPPV (benign paroxysmal positional vertigo)[ICD9: 386.11] Diagnosis: Impacted cerumen[ICD9: 380.4] Diagnosis: ESSENTIAL HYPERTENSION[ICD9: 401.9] Diagnosis: Insulin dependent diabetes mellitus[ICD9: 250.00] Karmen Ash MD, [facility] CPT-4: 14540 12/23/2014 ([id number]) OFFICE VISI T, [facility] - LEVEL 4 Diagnosis: Insulin dependent diabetes mellitus[ICD9: 250.00] Diagnosis: BPPV (benign paroxysmal positional vertigo)[ICD9: 386.11] Diagnosis: COPD (chronic obstructive pulmonary disease)[ICD9: 496] Diagnosis: Tobacco abuse[ICD9: 305.1] Diagnosis: Osteoarthritis[ICD9: 715.90] [facility] CPT- 4: 70689 12/09/2014 Plan of Care Planned Activity Notes C odes Status Date Visit Plan: Hypertension - well controll ed [...] glucose readings are starting to become less controlled.Msiycy-hnqhiem-xanbb labs 02/19/2017 [phone] [phone] ([facility] min) Complex 02/19/2017 Patient Education: [...] 1 month 01/21/2017 Appointment: [phone] [phone] (30 min) Complex 01/21/2017 Patient Education: Patient Medication Summary Completed 01/21/2017 Patient Education: Smoking and Tobacco Addiction Completed 01/21/2017 Patient Education: Hypertension Completed 01/21/2017 Care Plan: Referral Order SNOMED-CT : [id number] Pending 01/21/2017 Visit Plan: Diabetes Mellitus - [...] Karmen Espinal WPtel: [phone] (30 min) Complex 12/20/2016 Patient Education: Patient Medication Summary Completed 12/20/2016 Patient Education: Smoking and Tobacco Addiction Completed 12/20/2016 Patient Education: Hypertension Completed 12/20/2016 Appointment: Karmen Espinal WPtel: [phone] (30 min) Complex 09/06/2016 Visit Plan: Diabetes [...] level 08/23/2016 Appointment: [phone] [phone] (30 min) Complex 08/23/2016 Patient Education: Patient [...] changes. 05/22/2016 App[facility]ment: [phone] (30 min) Complex 05/22/2016 Patient Education: Patient Medication Summary Completed 05/22/2016 Patient Education: Smoking and Tobacco Addiction Completed 05/22/2016 Care Plan: Cbc With Differential Ordered 05/22/2016 Care Plan: %Hba1C LOIN C : 01280-4 Ordered 05/22/2016 Care Plan: Tsh Ordered 05/22/2016 [...] update 02/24/2016 Appointment: [phone] (30 min) Complex 02/24/2016 Patient Education: [...] regimen. 01/27/2016 App[facility]ment: [phone] [phone] (30 min) Complex 01/27/2016 Patient Education: [...] POTENTIAL SIDE EFFECTS AND WORSENING OF SYMPTOMS. Pubogtft-pdmduhhv-GFZT SIMVASTATIN X 2 WEEKS AND CALL WITH [...] Care Plan: COMPLETE CBC AUTOMATED LOINC : 71478-3 Ordered 03/24/2015 Visit Plan: Diabetes Mellitus - [...] for removal. 03/07/2015 Appointment: Violeta Ash WPtel: [address] [place], [place] [id number] (15 min) Moderate 03/07/2015 Patient Education: Patient [...] Care Plan: COMPLETE CBC AUTOMATED LOINC : 10427-8 Ordered 12/23/2014 Visit Plan: BPPV - Benign [...] next appt 2014 Appointment: Karmen Espinal WPtel: [address] [place], [place] [phone] [place] New Patient 12/09/2014 Patient Education: [...] readings are starting to become less controlled. Gogkxa-iyxxjku-nnsop labs decrease glipizide t o 5mg twice [...] POTENTIAL SIDE EFFECTS AND WORSENING OF SYMPTOMS. Cxxjbwnf-jitmktjp-ZEDG SIMVASTATIN X 2 WEEKS AND CALL WITH [...]
--- OUTSIDE RECORDS SUMMARY | 2020-03-29 08:29 | XMS REPORT | CCD ---
Author Author Dick Espinal Organization Violeta Ash MD, [facility] Address [address] [place] [address] Phone Care Team Providers Care Intern Architect Name Role Phone PP Unavailable CCM Unavailable Summary Purpose Interface Exchange Insurance Providers Payer name Policy type / Coverage type Covered republican ID Effective Begin Date Effective End Date WPS Medicare Part B Medicare Part B [id number] Unknown Unknown [employer] Medicar e Part B [id number] Unknown Unkn own Family history Father Diagnosis Age At Onset Cancer Unknown Mother Diagnosis Age At Onset Cancer Unknown Social History Social History Element Codes Description Effective Dates Marital status Unknown M arried 12/09/2014 Employment Unknown Retir ed 12/09/[address]: 09777638 Currently smokes tobacco 12/09/2014 Number of years using tobacco Unknown > 50 12/09/2014 Number of cigarettes/day Unknown 30 (Pack and a half) 12/09/[address]: 010931792 Never drinks alcohol 12/09/2014 Allergies, Adverse Reactions, [...] Protonix 40 mg table t,delayed release RxNorm: 713810 Tablet(s) Take 1 tabl et by mouth BID 02/19/2017 06/18/2017 Active Protonix 40 mg table t,delayed release RxNorm: 692855 Tablet(s) Take 1 tabl et by mouth BID 02/19/2017 02/18/2017 Inactive lisinopril 10 mg tablet RxNorm: 115178 Take 1 tablet by mouth daily 01/29/2017 07/27/2017 Active - First Attempt Ref: [id number] hydrocodone 5 mg-linh taminophen 325 mg tablet RxNorm: 082685 1 Tablet(s) PO Q6-8H as needed 01/25/2017 02/26/2017 Active simvastatin 40 mg ta blet RxNorm: 196978 Tablet(s) Take 1 tabl et by mouth daily at bedtime 01/03/2017 12/28/2017 Active lisinopril 10 mg tablet RxNorm: 305225 Tablet(s) Take 1 tablet by mouth daily 01/03/2017 01/28/2017 In active Protonix 40 mg table t,delayed release RxNorm: 212619 Tablet(s) Take 1 tabl et by mouth daily 12/28/2016 02/18/2017 Inactive hydrocodone 5 mg-linh taminophen 325 mg tablet RxNorm: 944454 1 Tablet(s) PO Q6-8H as needed 12/26/2016 01/24/2017 Inactive Xanax 0.5 mg tablet RxNorm: 764173 1 Tablet(s) PO TID 12/12/2016 03/11/2017 Active simvastatin 40 mg ta blet RxNorm: 061341 Tablet(s) Take 1 tabl et by mouth daily at bedtime 11/30/2016 01/02/2017 Inactive simvastatin 40 mg ta blet RxNorm: 562291 Take 1 tablet by mout h daily at bedtime 11/29/2016 11/29/2016 In active - First Attempt Ref: [id number] Protonix 40 mg table t,delayed release RxNorm: 777344 Take 1 tablet by mout h daily 11/27/2016 12/27/2016 In active - First Attempt Ref: [id number] hydrocodone 5 mg-linh taminophen 325 mg tablet RxNorm: 679515 1 Tablet(s) PO Q6-8H as needed 11/26/2016 12/25/2016 Inactive hydrocodone 5 mg-linh taminophen 325 mg tablet RxNorm: 947203 1 Tablet(s) PO Q8 as needed 10/24/2016 11/25/2016 Inactive Xanax 0.5 mg tablet RxNorm: 284260 1 Tablet(s) PO TID 10/09/2016 12/25/2016 Inactive hydrocodone 5 mg-linh taminophen 325 mg tablet RxNorm: 259926 1 Tablet(s) PO Q8 as needed 09/27/2016 10/23/2016 Inactive lisinopril 10 mg tablet RxNorm: 309021 Take 1 tablet by mouth daily 09/25/2016 01/02/2017 Inactive - First Attempt Ref: [id number] Vitamin D2 50,000 un it capsule RxNorm: 376939 1 Capsule(s) PO QW 09/06/2016 No Stop Date Active hydrocodone 5 mg-linh taminophen 325 mg tablet RxNorm: 623734 1 Tablet(s) PO Q8 as needed 08/28/2016 09/26/2016 Inactive Toujeo SoloStar 300 unit/mL (1.5 mL) subcutaneous insulin pen RxNorm: 8245796 25 Unit(s) SQ QHS 08/23/2016 No Stop Date Active dosage increase hydrocodone 5 mg-linh taminophen 325 mg tablet RxNorm: 068944 1 Tablet(s) PO Q8 as needed 07/26/2016 08/27/2016 Inactive Protonix 40 mg table t,delayed release RxNorm: 074235 Take 1 tablet by mout h daily 07/24/2016 11/26/2016 In active - First Attempt Ref: [id number] hydrocodone 5 mg-linh taminophen 325 mg tablet RxNorm: 558719 1 Tablet(s) PO Q8 as needed 06/19/2016 07/21/2016 Inactive Toujeo SoloStar 300 unit/mL (1.5 mL) subcutaneous insulin pen RxNorm: 1282059 32 Unit(s) SQ QHS 05/30/2016 08/22/2016 Inactive dosage increase hydrocodone 5 mg-linh taminophen 325 mg tablet RxNorm: 126696 1 Tablet(s) PO Q8 as needed 05/22/2016 06/18/2016 Inactive hydrocodone 5 mg-linh taminophen 325 mg tablet RxNorm: 519117 1 Tablet(s) PO Q8 as needed 04/18/2016 05/17/2016 Inactive Protonix 40 mg table t,delayed release RxNorm: 652762 Take 1 tablet by mout h daily 04/05/2016 07/03/2016 In active - Ref: [id number] metformin 500 mg tablet RxNorm: 001230 Take 1 tablet by mouth daily 04/04/2016 07/02/2016 Inactive - Ref: [id number] Xanax 0.5 mg tablet RxNorm: 895570 1 Tablet(s) PO TID 03/30/2016 09/25/2016 Inactive Xanax 0.5 mg tablet RxNorm: 265759 1 Tablet(s) PO TID 03/23/2016 12/25/2016 Inactive hydrocodone 5 mg-linh taminophen 325 mg tablet RxNorm: 260620 1 Tablet(s) PO Q8 as needed 03/06/2016 04/04/2016 Inactive Cipro 500 mg tablet RxNorm: 185035 1 Tablet(s) PO BID 02/24/2016 03/04/2016 Inactive Miralax 17 gram oral powder packet RxNorm: 179033 1 packet PO every oth er day 01/27/2016 No Stop Date Active hydrocodone 5 mg-linh taminophen 325 mg tablet RxNorm: 686281 1 Tablet(s) PO Q8 as needed 01/27/2016 02/25/2016 Inactive lisinopril 10 mg tablet RxNorm: 271622 1 Tablet(s) PO daily 01/12/2016 09/24/2016 Inactive simvastatin 40 mg ta blet RxNorm: 680564 1 Tablet(s) PO QHS 01/12/2016 11/28/2016 Inactive simvastatin 40 mg ta blet RxNorm: 458883 1 Tablet(s) PO QHS 01/11/2016 01/11/2016 Inactive lisinopril 10 mg tablet RxNorm: 841511 1 Tablet(s) PO daily 01/06/2016 01/11/2016 Inactive simvastatin 40 mg ta blet RxNorm: 618045 1 Tablet(s) PO daily 12/28/2015 01/10/2016 Inactive hydrocodone 5 mg-linh taminophen 325 mg tablet RxNorm: 315353 1 Tablet(s) PO Q8 as needed 12/27/2015 01/26/2016 Inactive Xanax 0.5 mg tablet RxNorm: 678466 1 Tablet(s) PO TID 11/30/2015 03/29/2016 Inactive meclizine 25 mg tablet RxNorm: 756612 1 Tablet(s) PO Q6 PRN TAKE ONE TABLET BY MOUTH EVERY 6 HOURS NEEDED 11/25/2015 02/22/2016 Inactive Toujeo SoloStar 300 unit/mL (1.5 mL) subcutaneous insulin pen RxNorm: 9060725 30 Unit(s) SQ QHS 11/25/2015 05/29/2016 Inactive dosage increase omeprazole 20 mg cap jacquelyn,delayed release RxNorm: 828252 1 Capsule(s) PO daily 10/06/2015 01/26/2016 In active Toujeo SoloStar 300 unit/mL (1.5 mL) subcutaneous insulin pen RxNorm: 6536934 35 Unit(s) SQ QHS 08/02/2015 11/24/2015 Inactive dosage increase Vitamin D2 50,000 un it capsule RxNorm: 478184 1 Capsule(s) PO QW 08/02/2015 09/05/2016 Inactive hydrocodone 5 mg-linh taminophen 325 mg tablet RxNorm: 264889 1 Tablet(s) PO Q8 as needed 07/11/2015 12/26/2015 Inactive Xanax 0.5 mg tablet RxNorm: 298279 1 Tablet(s) PO TID 06/30/2015 06/29/2015 Inactive Xanax 0.5 mg tablet RxNorm: 328656 1 Tablet(s) PO TID 06/30/2015 12/25/2015 Inactive hydrocodone 5 mg-linh taminophen 325 mg tablet RxNorm: 491688 1 Tablet(s) PO Q8 as needed 05/06/2015 07/10/2015 Inactive Symbicort 160 mcg-4. 5 mcg/actuation HFA aerosol inhaler RxNorm: 4365678 INH 04/25/2015 No Stop Date Active Levemir FlexTouch 10 0 unit/mL (3 mL) subcutaneous insulin pen RxNorm: 938948 30 Unit(s) SQ QHS 04/25/2015 11/24/2015 Inactive prednisone 20 mg tablet RxNorm: 151555 1 Tablet(s) PO BID 04/25/2015 04/29/2015 Inactive metformin 500 mg tablet RxNorm: 207388 1 Tablet(s) PO daily 04/25/2015 04/03/2016 Inactive amoxicillin 500 mg c apsule RxNorm: 125778 1 Capsule(s) PO TID 04/14/2015 04/13/2015 Inactive amoxicillin 500 mg c apsule RxNorm: 420413 1 Capsule(s) PO TID a nd recommend probiotic tid (otc) 04/14/2015 04/20/2015 Inactive Kenalog 40 mg/mL bartolome pension for injection RxNorm: 9275199 Milliliter(s) Inj 04/12/2015 04/12/2015 In active hydrocodone 5 mg-linh taminophen 325 mg tablet RxNorm: 511634 1 Tablet(s) PO Q8 as needed 03/30/2015 05/05/2015 Inactive Lantus 100 unit/mL s ubcutaneous solution RxNorm: 454786 25 Unit(s) SQ QPM 03/24/2015 04/25/2015 In active meclizine 25 mg tablet RxNorm: 122068 Tablet(s) TAKE ONE TABLET BY MOUTH EVERY 6 HOURS NEEDED 03/08/2015 04/06/2015 Inactive meclizine 25 mg tablet RxNorm: 744663 TAKE ONE TABLET BY MOUTH EVERY 6 HOURS A S NEEDED 02/25/2015 03/03/2015 Inactive Lantus 100 unit/mL s ubcutaneous solution RxNorm: 857459 20 Unit(s) SQ QPM 02/23/2015 03/23/2015 In active Lantus 100 unit/mL s ubcutaneous solution RxNorm: 028908 25 Unit(s) SQ QPM 02/23/2015 02/22/2015 In active hydrocodone 5 mg-linh taminophen 325 mg tablet RxNorm: 155507 1 Tablet(s) PO Q8 as needed 02/17/2015 03/29/2015 Inactive Xanax 0.5 mg tablet RxNorm: 384695 1 Tablet(s) PO TID 02/03/2015 06/29/2015 Inactive Lantus 100 unit/mL s ubcutaneous solution RxNorm: 807684 20 Unit(s) SQ QPM 12/29/2014 02/22/2015 In active Phenergan 12.5 mg re ctal suppository RxNorm: 492117 1 Suppository RTL Q6 PRN 12/23/2014 No Stop Date Active nausea Kenalog 40 mg/mL bartolome pension for injection RxNorm: 7120019 Milliliter(s) Inj 12/23/2014 12/23/2014 In active prednisone 20 mg tablet RxNorm: 439043 2 Tablet(s) PO daily 12/13/2014 12/17/2014 Inactive prednisone 20 mg tablet RxNorm: 838659 2 Tablet(s) PO daily 12/13/2014 12/12/2014 Inactive meclizine 25 mg tablet RxNorm: 689912 1 Tablet(s) PO Q6 PRN 12/09/2014 02/24/2015 Inactive hydrocodone 5 mg-linh taminophen 325 mg tablet RxNorm: 203414 1 Tablet(s) PO Q8 as needed 12/09/2014 02/16/2015 Inactive Vitamin B-12 1,000 m cg/mL oral drops RxNorm: 1176830 1 Milliliter(s) PO d aily No Start Date Active Alphagan P 0.1 % eye drops RxNorm: 382439 1 Drop(s) OPH BID No Start Date Active aspirin 325 mg table t,delayed release RxNorm: 676608 1 Tablet(s) PO daily No Start Date Active Tricor 145 mg tablet RxNorm: 839094 1 Tablet(s) PO daily No Start Date Active vitamin M22-jpallen B1 oral liquid RxNorm: 1,000 Microgram(s) PO daily No Start Date Active atenolol 50 mg tablet RxNorm: 271883 1 Tablet(s) PO daily No Start Date Active Protonix 40 mg table t,delayed release RxNorm: 312742 1 Tablet(s) PO daily No Start Date 04/04/2016 Inactive glipizide 10 mg tablet RxNorm: 630371 1 Tablet(s) PO BID No Start Date 03/22/2015 Inactive Lantus 100 unit/mL s ubcutaneous solution RxNorm: 769921 15 Unit(s) SQ QPM No Start Date 12/28/2014 Inactive lisinopril 10 mg tablet RxNorm: 209934 1 Tablet(s) PO daily No Start Date 01/05/2016 Inactive Vitamin D2 50,000 un it capsule RxNorm: 733004 1 Capsule(s) PO QW No Start Date 08/01/2015 Inactive Toujeo SoloStar 300 unit/mL (1.5 mL) subcutaneous insulin pen RxNorm: 8281659 30 Unit(s) SQ QHS No Start Date 08/01/2015 Inactive simvastatin 40 mg ta blet RxNorm: 954167 1 Tablet(s) PO daily No Start Date 12/27/2015 Inactive hydrocodone 5 mg-linh taminophen 325 mg tablet RxNorm: 924064 1 Tablet(s) PO Q8 as needed No Start Date 12/08/2014 Inactive metformin 500 mg tablet RxNorm: 078391 1 Tablet(s) PO daily No Start Date 04/24/2015 Inactive omeprazole 20 mg cap jacquelyn,delayed release RxNorm: 454444 1 Capsule(s) PO daily No Start Date 10/05/2015 Inactive Flomax 0.4 mg capsule RxNorm: 129851 1 Capsule(s) PO daily No Start Date 03/23/2015 Inactive Medication Administered Medication Codes Instruc tions Start Date Status Kenalog 40 mg/mL suspension for injection RxNorm: 7947716 Milliliter 04/12/2015 No longer Active Kenalog 40 mg/mL suspension for injection RxNorm: 0886155 Milliliter 12/23/2014 No longer Active Immunizations Vaccine [...] Observation Code Item Item Code Result Date Vitamin D 25 [id number] VITAMIN D, 25 HYDROXY 44.40 ng/mL 12/21/2016 Comp Metabolic Jik176 NA 131 mEq/L 12/21/2016 Comp Metabolic Yqi438 K 4.2 mEq/L 12/21/2016 Comp Metabolic Hny181 CL 97 mEq/L 12/21/2016 Comp Metabolic Jtq454 CO2 27.0 mEq/L 12/21/2016 Comp Metabolic Cvb043 AN ION GAP 11 12/21/2016 Comp Metabolic Sxj391 GL UCOSE 266 mg/dL 12/21/2016 Comp Metabolic Wqv095 Cr eat 0.9 mg/dL 12/21/2016 Comp Metabolic Vme885 eG FR 88 ml/min/1.73m2 12/21 Comp Metabolic Bfc072 BUN 12 mg/dL 12/21/2016 Comp Metabolic Bho402 B/ C Ratio 13.6 Ratio 12/21/2016 Comp Metabolic Mlg478 CA LCIUM 8.6 mg/dL 12/21/2016 Comp Metabolic Anx355 AL K PHOS 69 U/L 12/21/2016 Comp Metabolic Fer207 T(SGOT) 15 U/L 12/21/2016 Comp Metabolic Mbt544 AL T(SGPT) 14 U/L 12/21/2016 Comp Metabolic Lrw983 BI LI T 0.3 mg/dL 12/21/2016 Comp Metabolic Avp363 AL BUMIN 3.7 g/dL 12/21/2016 Comp Metabolic Mla655 TP RO 5.9 g/dL 12/21/2016 Comp Metabolic Ylu050 GL OB 2.2 g/dL 12/21/2016 Comp Metabolic Hla025 A/ G Ratio 1.7 Ratio 12/21/2016 Comp Metabolic Jzf916 Os mo 272 mOsmo 12/21/2016 Cbc With [...] 39.5 % 12/21/2016 Cbc With Differential Ord2 [place]% 6.9 % 12/21/2016 Cbc With Differential Ord2 [...] 2.05 K/ul 12/21/2016 Cbc With Differential Ord2 [place] ABS# 0.4 K/ul 12/21/2016 Cbc With Differential Ord2 Eos ABS# 0.2 K/ul 12/21/2016 Cbc With Differential Ord2 Baso ABS# 0.0 K/ul 12/21/2016 Comp Metabolic Rrs217 NA 138 mEq/L 09/03/2016 Comp Metabolic Vaj813 K 4.5 mEq/L 09/03/2016 Comp Metabolic Dzf976 CL 102 mEq/L 09/03/2016 Comp Metabolic Kth473 CO2 30.0 mEq/L 09/03/2016 Comp Metabolic Jtc440 AN ION GAP 11 09/03/2016 Comp Metabolic Fyb452 GL UCOSE 113 mg/dL 09/03/2016 Comp Metabolic Rwu852 Cr eat 1.0 mg/dL 09/03/2016 Comp Metabolic Nqg470 eG FR 81 ml/min/1.73m2 09/03 Comp Metabolic Suy374 BUN 10 mg/dL 09/03/2016 Comp Metabolic Ynb198 B/ C Ratio 10.5 Ratio 09/03/2016 Comp Metabolic Thi842 CA LCIUM 9.1 mg/dL 09/03/2016 Comp Metabolic Wrn844 AL K PHOS 71 U/L 09/03/2016 Comp Metabolic Pwd001 T(SGOT) 18 U/L 09/03/2016 Comp Metabolic Yla863 AL T(SGPT) 17 U/L 09/03/2016 Comp Metabolic Ggn534 BI LI T 0.6 mg/dL 09/03/2016 Comp Metabolic Yav528 AL BUMIN 4.1 g/dL 09/03/2016 Comp Metabolic Lqa838 TP RO 6.4 g/dL 09/03/2016 Comp Metabolic Cqy026 GL OB 2.3 g/dL 09/03/2016 Comp Metabolic Woi592 A/ G Ratio 1.8 Ratio 09/03/2016 Comp Metabolic Fyk909 Os mo 276 mOsmo 09/03/2016 Vitamin D 25 Oh Eca0993 VITAMIN D, 25 HYDROXY 28.23 ng/mL 09/03/2016 [...] 101.9 fl 09/03/2016 Cbc With Differential Ord2 [place]% 8.9 % 09/03/2016 Cbc With Differential Ord2 [...] 3.34 K/ul 09/03/2016 Cbc With Differential Ord2 [place] ABS# 0.7 K/ul 09/03/2016 Cbc With Differential Ord2 Eos ABS# 0.4 K/ul 09/03/2016 Cbc With Differential Ord2 Baso ABS# 0.0 K/ul 09/03/2016 Lipid Ord30 CHOL 120 mg/dL 09/03/2016 Lipid Ord30 HDL 33.0 mg/dl 09/03/2016 Lipid Ord30 TRIG 161 mg/dL 09/03/2016 Lipid Ord30 LDL 55 mg/dL 09/03/2016 Lipid Ord30 C/HDL 3.6 Ratio 09/03/2016 %Hba1C Gpg453 % HbA1c 47027-1 7.5 % 09/03/2016 %Hba1C Ypi802 Gluc Ave 169 mg/dL 09/03/2016 Tsh Ord6 hTSH II 1.50 uIU/mL 05/23/2016 %Hba1C Jbv057 % HbA1c 18482-1 7.6 % 05/23/2016 %Hba1C Acz582 Gluc Ave 171 mg/dL 05/23/2016 Comp Metabolic Xhr348 NA 135 mEq/L 05/23/2016 Comp Metabolic Axj538 K 4.4 mEq/L 05/23/2016 Comp Metabolic Kjm009 CL 99 mEq/L 05/23/2016 Comp Metabolic Tqe715 CO2 28.0 mEq/L 05/23/2016 Comp Metabolic Tta130 AN ION GAP 12 05/23/2016 Comp Metabolic Rue498 GL UCOSE 257 mg/dL 05/23/2016 Comp Metabolic Vpe462 Cr eat 0.8 mg/dL 05/23/2016 Comp Metabolic Bqe173 eG FR 95 ml/min/1.73m2 05/23 Comp Metabolic Xvh875 BUN 11 mg/dL 05/23/2016 Comp Metabolic Wpx631 B/ C Ratio 13.3 Ratio 05/23/2016 Comp Metabolic Mds739 CA LCIUM 9.0 mg/dL 05/23/2016 Comp Metabolic Psq176 AL K PHOS 82 U/L 05/23/2016 Comp Metabolic Nhn758 T(SGOT) 21 U/L 05/23/2016 Comp Metabolic Gcq973 AL T(SGPT) 20 U/L 05/23/2016 Comp Metabolic Owf535 BI LI T 0.3 mg/dL 05/23/2016 Comp Metabolic Don065 AL BUMIN 4.0 g/dL 05/23/2016 Comp Metabolic Azi832 TP RO 6.4 g/dL 05/23/2016 Comp Metabolic Viv419 GL OB 2.4 g/dL 05/23/2016 Comp Metabolic Ygs940 A/ G Ratio 1.6 Ratio 05/23/2016 Comp Metabolic Sle226 Os mo 278 mOsmo 05/23/2016 Cbc With [...] 34.5 pg 05/23/2016 Cbc With Differential Ord2 [place]% 6.1 % 05/23/2016 Cbc With Differential Ord2 [...] 2.38 K/ul 05/23/2016 Cbc With Differential Ord2 [place] ABS# 0.4 K/ul 05/23/2016 Cbc With Differential Ord2 Eos ABS# 0.2 K/ul 05/23/2016 Cbc With Differential Ord2 Baso ABS# 0.0 K/ul 05/23/2016 B12 Yel941 B12 597.00 pg/ml 05/23/2016 Metabolic Ord15 NA [...] 0.92 uIU/mL 07/29/2015 Vitamin D 25 Oh Gzm9805 VITAMIN D, 25 HYDROXY 26.93 ng/mL 07/29/2015 %Hba1C Uej918 % HbA1c 81147-6 8.8 % 07/29/2015 %Hba1C Mzd533 Gluc Ave 206 mg/dL 07/29/2015 Cbc With [...] Ord2 RDW 14.9 % 07/29/2015 Comp Metabolic Swe781 NA 138 mEq/L 07/29/2015 Comp Metabolic Civ774 K 4.4 mEq/L 07/29/2015 Comp Metabolic Fip873 CL 102 mEq/L 07/29/2015 Comp Metabolic Glu580 CO2 28.0 mEq/L 07/29/2015 Comp Metabolic Dvu109 AN ION GAP 12 07/29/2015 Comp Metabolic Nrr881 GL UCOSE 261 mg/dL 07/29/2015 Comp Metabolic Jwm561 Cr eat 1.0 mg/dL 07/29/2015 Comp Metabolic Mry815 eG FR 77 ml/min/1.73m2 07/29 Comp Metabolic Sgr576 BUN 13 mg/dL 07/29/2015 Comp Metabolic Ydf745 B/ C Ratio 13.0 Ratio 07/29/2015 Comp Metabolic Dzu618 CA LCIUM 9.1 mg/dL 07/29/2015 Comp Metabolic Gvy613 AL K PHOS 64 U/L 07/29/2015 Comp Metabolic Iqn642 T(SGOT) 20 U/L 07/29/2015 Comp Metabolic Ymz088 AL T(SGPT) 22 U/L 07/29/2015 Comp Metabolic Wjt479 BI LI T 0.4 mg/dL 07/29/2015 Comp Metabolic Dma465 AL BUMIN 4.0 g/dL 07/29/2015 Comp Metabolic Vgh746 TP RO 6.1 g/dL 07/29/2015 Comp Metabolic Aej865 GL OB 2.1 g/dL 07/29/2015 Comp Metabolic Jvb646 A/ G Ratio 1.9 Ratio 07/29/2015 Comp Metabolic Qfw842 Os mo 285 mOsmo 07/29/2015 Cbc With [...] Ord2 RDW 13.1 % 05/06/2015 Comp Metabolic Rko885 NA 134 mEq/L 05/06/2015 Comp Metabolic Dln349 K 4.4 mEq/L 05/06/2015 Comp Metabolic Zju441 CL 98 mEq/L 05/06/2015 Comp Metabolic Rky215 CO2 29.0 mEq/L 05/06/2015 Comp Metabolic Oic313 AN ION GAP 11 05/06/2015 Comp Metabolic Tfq845 GL UCOSE 321 mg/dL 05/06/2015 Comp Metabolic Div260 Cr eat 1.0 mg/dL 05/06/2015 Comp Metabolic Ome493 eG FR 78 ml/min/1.73m2 05/06 Comp Metabolic Nru111 BUN 20 mg/dL 05/06/2015 Comp Metabolic Kus232 B/ C Ratio 20.4 Ratio 05/06/2015 Comp Metabolic Zjw328 CA LCIUM 9.5 mg/dL 05/06/2015 Comp Metabolic Lfj865 AL K PHOS 62 U/L 05/06/2015 Comp Metabolic Kor143 T(SGOT) 21 U/L 05/06/2015 Comp Metabolic Mzy301 AL T(SGPT) 37 U/L 05/06/2015 Comp Metabolic Edy072 BI LI T 0.4 mg/dL 05/06/2015 Comp Metabolic Rlg041 AL BUMIN 3.8 g/dL 05/06/2015 Comp Metabolic Etz676 TP RO 6.1 g/dL 05/06/2015 Comp Metabolic Wga446 GL OB 2.3 g/dL 05/06/2015 Comp Metabolic Hms533 A/ G Ratio 1.7 Ratio 05/06/2015 Comp Metabolic Ztj786 Os mo 283 mOsmo 05/06/2015 Tsh Ord6 hTSH II 1.65 uIU/mL 02/18/2015 B12 Uuq380 B12 605.00 pg/ml 02/18/2015 %Hba1C Nrz850 % HbA1c 54409-1 8.3 % 02/18/2015 %Hba1C Ygb502 Gluc Ave 192 mg/dL 02/18/2015 Cbc With [...] Ord2 RDW 13.9 % 02/17/2015 Comp Metabolic Tgg681 NA 137 mEq/L 02/17/2015 Comp Metabolic Elp213 K 4.4 mEq/L 02/17/2015 Comp Metabolic Zah132 CL 100 mEq/L 02/17/2015 Comp Metabolic Veo237 CO2 31.0 mEq/L 02/17/2015 Comp Metabolic Qwe034 AN ION GAP 10 02/17/2015 Comp Metabolic Fit407 GL UCOSE 307 mg/dL 02/17/2015 Comp Metabolic Mus344 Cr eat 1.0 mg/dL 02/17/2015 Comp Metabolic Iqn919 eG FR 74 ml/min/1.73m2 02/17 Comp Metabolic Nda534 BUN 22 mg/dL 02/17/2015 Comp Metabolic Dxm770 B/ C Ratio 21.4 Ratio 02/17/2015 Comp Metabolic Npj171 CA LCIUM 9.5 mg/dL 02/17/2015 Comp Metabolic Han097 AL K PHOS 78 U/L 02/17/2015 Comp Metabolic Myf007 T(SGOT) 18 U/L 02/17/2015 Comp Metabolic Dws726 AL T(SGPT) 32 U/L 02/17/2015 Comp Metabolic Mkj499 BI LI T 0.5 mg/dL 02/17/2015 Comp Metabolic Jbl349 AL BUMIN 4.3 g/dL 02/17/2015 Comp Metabolic Vtf962 TP RO 6.7 g/dL 02/17/2015 Comp Metabolic Kfd801 GL OB 2.4 g/dL 02/17/2015 Comp Metabolic Hfj488 A/ G Ratio 1.8 Ratio 02/17/2015 Comp Metabolic Xoe295 Os mo 289 mOsmo 02/17/2015 Review of [...] 2014 Respiratory daytime hypersomnolence 03/07/2015 Respiratory dyspnea /02/2015 Gastrointestinal No abdominal pain 03/07/2015 Gastrointestinal No [...] dentition 08/23/2016 None Full Exam - General 1995 Ears/Nose/Throat lips/teeth/gingiva Overall: benign gingiva 08/23/2016 None [...] inspection of skin Location: face 03/07/2015 on yazidism, cheeks,actinic keratosis with irritation on left cheek - left yazidism - croptherapy on these two lesions - [...] Date ADMIN INFLUENZA VIRU S VAC CPT-4: F2576Mzthhxw 05/22/2016 FLU VACC 4 TELLY 3 YRS PLUS IM Formatting Model/CDA Sections, Assigned to/Angela Clemons SNOMED CT: 16312320 CPT-4: 58779Iocmaoq 05/22/2016 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 3-[address]: 275944489 CPT-4: R7286Wfkqxwz 11/25/2015 URINALYSIS NONAUTO W /O SCOPE CPT-4: 53819Vlikcsl 05/09/2015 TRIAMCINOLONE ACET I [place] NOS CPT-4: M2911Epbhvfp 04/12/2015 DESTRUCT PREMALG LES ION CPT-4: 81919Prryigg 03/07/2015 DESTRUCT PREMALG LES 2-14 CPT-4: 55348Dywbgmg 03/07/2015 REMOVE IMPACTED EAR WAX UNI CPT-4: 66538Nbfruwv 12/31/2014 THER/PROPH/DIAG INJ SC/IM CPT-4: 88969Ucnsqop 12/23/2014 TRIAMCINOLONE ACET I [place] NOS CPT-4: Z6424Pfrbrkd 12/23/2014 Vital Signs Date Vital 02/19/2017 Blood Pressure 1: 138/64 Code: 8480-6 BMI: 21.3 Code: 69540-4 Heart Rate 1: 52 bpm Height: 5'11" SpO2: 96% Weight: 152 lbs 8 oz 01/21/2017 Blood Pressure 1: 160/68 Code: 8480-6 BMI: 21.3 Code: 95477-2 Heart Rate 1: 62 bpm Height: 5'11" SpO2: 96% Weight: 153 lbs 12/20/2016 Blood Pressure 1: 124/66 Code: 8480-6 BMI: 21.5 Code: 93359-8 Height: 5'11" Weight: 154 lbs 08/23/2016 Blood Pressure 1: 142/52 Code: 8480-6 BMI: 21.2 Code: 83476-8 Heart Rate 1: 54 bpm Height: 5'11" SpO2: 96% Weight: 152 lbs 05/22/2016 Blood Pressure 1: 130/76 Code: 8480-6 BMI: 21.5 Code: 02687-1 Heart Rate 1: 78 bpm Height: 5'11" SpO2: 92% Weight: 154 lbs 02/24/2016 Blood Pressure 1: 128/80 Code: 8480-6 BMI: 21.2 Code: 03431-8 Heart Rate 1: 74 bpm Height: 5'11" SpO2: 96% Weight: 152 lbs 01/27/2016 Blood Pressure 1: 144/60 Code: 8480-6 BMI: 21.2 Code: 68266-1 Heart Rate 1: 74 bpm Height: 5'11" SpO2: 97% Weight: 152 lbs 11/25/2015 Blood Pressure 1: 110/52 Code: 8480-6 BMI: 21.9 Code: 71577-6 Heart Rate 1: 65 bpm Height: 5'11" SpO2: 92% Weight: 157 lbs 07/28/2015 Blood Pressure 1: 138/62 Code: 8480-6 BMI: 21.8 Code: 02999-4 Heart Rate 1: 63 bpm Height: 5'11" SpO2: 91% Weight: 156 lbs 05/26/2015 Blood Pressure 1: 120/58 Code: 8480-6 BMI: 21.5 Code: 25213-5 Heart Rate 1: 99 bpm Height: 5'11" SpO2: 96% Weight: 154 lbs 05/06/2015 Blood Pressure 1: 120/58 Code: 8480-6 BMI: 21.2 Code: 23892-8 Heart Rate 1: 66 bpm Height: 5'11" SpO2: 96% Weight: 152 lbs 04/25/2015 Blood Pressure 1: 136/62 Code: 8480-6 BMI: 21.2 Code: 66584-6 Heart Rate 1: 63 bpm Height: 5'11" SpO2: 97% Weight: 152 lbs 04/12/2015 Blood Pressure 1: 160/58 Code: 8480-6 BMI: 21.6 Code: 13038-0 Heart Rate 1: 62 bpm Height: 5'11" Weight: 155 lbs 03/24/2015 Blood Pressure 1: 138/68 Code: 8480-6 BMI: 22.0 Code: 65490-5 Heart Rate 1: 65 bpm Height: 5'11" SpO2: 96% Weight: 158 lbs 03/07/2015 Blood Pressure 1: 116/52 Code: 8480-6 BMI: 22.2 Code: 37678-3 Heart Rate 1: 64 bpm Height: 5'11" SpO2: 97% Weight: 159 lbs 02/17/2015 Blood Pressure 1: 148/58 Code: 8480-6 BMI: 21.3 Code: 72867-6 Heart Rate 1: 63 bpm Height: 5'11" SpO2: 97% Weight: 153 lbs 12/31/2014 Blood Pressure 1: 100/60 Code: 8480-6 BMI: 21.8 Code: 30367-6 Heart Rate 1: 68 bpm Height: 5'11" Weight: 156 lbs 12/23/2014 Blood Pressure 1: 148/64 Code: 8480-6 BMI: 21.9 Code: 15110-5 Heart Rate 1: 64 bpm Height: 5'11" [...] daily 11/25/2015 None cough [facility] 11/25/2015 None cough Quality acute 11/25/2015 [...] Encounters Encounter Performer Loca tion Codes Date ([id number]) [id number] EST. P ATIENT, LEVEL IV Diagnosis: Type 2 diabetes mellitus with hyperglycemia[ICD10: E11.65] Diagnosis: Essential (primary) hypertension[ICD10: I10] Diagnosis: Anemia, unspecified[ICD10: D64.9] Karmen Ash MD, [facility] CPT- 4: 17212 02/19/2017 [id number] EST. P ATIENT, LEVEL IV Diagnosis: Slow transit constipation[ICD10: K59.01] Diagnosis: Gastro-esophageal reflux disease without esophagitis[ICD10: K21.9] Diagnosis: Essential (primary) hypertension[ICD10: I10] Karmen Ash MD, [facility] CPT-4: 36215 01/21/2017 [id number] EST. P ATIENT, LEVEL IV Diagnosis: Type 2 diabetes mellitus with hyperglycemia[ICD10: E11.65] Diagnosis: Vitamin D deficiency, unspecified[ICD10: E55.9] Diagnosis: Essential (primary) hypertension[ICD10: I10] Diagnosis: Chronic obstructive pulmonary disease, unspecified[ICD10: J44.9] Karmen Ash MD, [facility] CPT-4: 58169 12/20/2016 ([id number]) [id number] EST. P ATIENT, LEVEL IV Diagnosis: Type 2 diabetes mellitus with hyperglycemia[ICD10: E11.65] Diagnosis: Essential (primary) hypertension[ICD10: I10] Diagnosis: Mixed hyperlipidemia[ICD10: E78.2] Diagnosis: Vitamin D deficiency, unspecified[ICD10: E55.9] Karmen Ash MD, [facility] CPT-4: 06923 08/23/2016 ([id number]) 82082 EST. P ATIENT, LEVEL IV Diagnosis: Type 2 diabetes mellitus with hyperglycemia[ICD10: E11.65] Diagnosis: Essential (primary) hypertension[ICD10: I10] Diagnosis: Chronic obstructive pulmonary disease, unspecified[ICD10: J44.9] Karmen Ash MD, [facility] CPT-4: 27805 05/22/2016 ([id number]) 93619 EST. P ATIENT, LEVEL III Diagnosis: Dysuria[ICD10: R30.0] Diagnosis: Essential (primary) hypertension[ICD10: I10] Karmen Ash MD, [facility] CPT-4: 10569 02/24/2016 ([id number]) 50982 EST. P ATIENT, LEVEL IV Diagnosis: Gastro-esophageal reflux disease without esophagitis[ICD10: K21.9] Diagnosis: Slow transit constipation[ICD10: K59.01] Diagnosis: Type 2 diabetes mellitus with hyperglycemia[ICD10: E11.65] Karmen Ash MD, [facility] CPT-4: 64461 01/27/2016 ([id number]) 14669 EST. P ATIENT, LEVEL IV Diagnosis: Essential (primary) hypertension[ICD10: I10] Diagnosis: Type 2 diabetes mellitus with hyperglycemia[ICD10: E11.65] Diagnosis: Vitamin D deficiency, unspecified[ICD10: E55.9] Diagnosis: Chronic obstructive pulmonary disease, unspecified[ICD10: J44.9] Diagnosis: Mixed hyperlipidemia[ICD10: E78.2] Diagnosis: Tobacco use[ICD10: Z72.0] Karmen Ash MD, [facility] CPT- 4: 80988 11/25/2015 ([id number]) 14569 EST. P ATIENT, LEVEL IV Diagnosis: Type 2 diabetes mellitus with hyperglycemia[ICD10: E11.65] Diagnosis: Essential (primary) hypertension[ICD10: I10] Diagnosis: Vitamin D deficiency, unspecified[ICD10: E55.9] Karmen Ash MD, [facility] CPT-4: 73634 07/28/2015 ([id number]) 73488 EST. P ATIENT, LEVEL III Diagnosis: Type 2 diabetes mellitus with hyperglycemia[ICD10: E11.65] Diagnosis: Essential (primary) hypertension[ICD10: I10] Violeta Ash MD, [facility] CPT-4: 47974 05/26/2015 ([id number]) 70064 EST. P ATIENT, LEVEL III Diagnosis: DIABETES TYPE II[ICD9: 250.00] Diagnosis: COPD (chronic obstructive pulmonary disease)[ICD9: 496] Diagnosis: ESSENTIAL HYPERTENSION[ICD9: 401.9] Diagnosis: Cough[ICD9: 786.2] Violeta Ash MD, [facility] CPT-4: 06808 05/06/2015 ([id number]) 22199 EST. P ATIENT, LEVEL III Diagnosis: COPD (chronic obstructive pulmonary disease)[ICD9: 496] Diagnosis: DIABETES TYPE II[ICD9: 250.00] Diagnosis: Muscle ache[ICD9: 729.1] Karmen Ash MD, [facility] CPT- 4: 44010 04/25/2015 ([id number]) 30363 EST. P ATIENT, LEVEL III Diagnosis: ACTINIC KERATOSIS[ICD9: 702.0] Diagnosis: COPD (chronic obstructive pulmonary disease)[ICD9: 496] Diagnosis: DIABETES TYPE II[ICD9: 250.00] Diagnosis: ACUTE URI[ICD9: 465.9] Violeta Ash MD, [facility] CPT-4: 07860 04/12/2015 ([id number]) 65353 EST. P ATIENT, LEVEL III Diagnosis: DIABETES TYPE II[ICD9: 250.00] Violeta Ash MD, [facility] CPT-4: 12380 03/24/2015 ([id number]) 35255 EST. P ATIENT, LEVEL IV Diagnosis: DIABETES TYPE II[ICD9: 250.00] Diagnosis: Hypoglycemia[ICD9: 251.2] Diagnosis: Skin texture changes[ICD9: 782.8] Violeta Ash MD, [facility] CPT-4: 09492 03/07/2015 ([id number]) 59664 EST. P ATIENT, LEVEL IV Diagnosis: COPD (chronic obstructive pulmonary disease)[ICD9: 496] Diagnosis: Fatigue[ICD9: 780.79] Diagnosis: Insulin dependent diabetes mellitus[ICD9: 250.00] Diagnosis: Unsteady gait[ICD9: 781.2] Maame Ash MD, [facility] CPT-4: 77748 02/17/2015 ([id number]) 18061 EST. P [facility], LEVEL IV Diagnosis: BPPV (benign paroxysmal positional vertigo)[ICD9: 386.11] Diagnosis: Impacted cerumen[ICD9: 380.4] Diagnosis: ESSENTIAL HYPERTENSION[ICD9: 401.9] Diagnosis: Insulin dependent diabetes mellitus[ICD9: 250.00] [facility] CPT-4: 75268 12/23/2014 ([id number]) [facility] - LEVEL 4 Diagnosis: Insulin dependent diabetes mellitus[ICD9: 250.00] Diagnosis: BPPV (benign paroxysmal positional vertigo)[ICD9: 386.11] Diagnosis: COPD (chronic obstructive pulmonary disease)[ICD9: 496] Diagnosis: Tobacco abuse[ICD9: 305.1] Diagnosis: Osteoarthritis[ICD9: 715.90] [facility] CPT- 4: 72590 12/09/2014 Plan of Care Planned Activity Notes [...] glucose readings are starting to become less controlled.Mnnbgy-uwgkkdp-bqsgg labs 02/19/2017 Patient Education: Patient Medication Summary Completed 02/19/2017 Patient Education: Smoking and Tobacco Addiction Completed 02/19/2017 Patient Education: Hypertension Completed 02/19/2017 Care Plan: Comp Metabolic Pending 02/19/2017 Care Plan: Cbc With Differential Pending 02/19/2017 Care Plan: Tsh Pending 02/19/2017 Care Plan: %Hba1C LOCELINA C : 64545-9 Pending 02/19/2017 Visit Plan: Esophageal Reflux - the [...] month 01/21/2017 Appointment: Karmen Espinal WPtel: [phone] [phone] (30 min) [facility] 01/21/2017 Patient Education: Patient Medication Summary Completed 01/21/2017 Patient Education: Smoking and Tobacco Addiction Completed 01/21/2017 Patient Education: Hypertension Completed 01/21/2017 Care Plan: Referral Order SNOMED-CT : [id number] Pending 01/21/2017 Visit Plan: Diabetes Mellitus - [...] acute changes. 12/20/2016 Appointment: [facility] [phone] [phone] ([facility] min) Complex 12/20/2016 Patient Education: Patient Medication Summary Completed 12/20/2016 Patient Education: Smoking and Tobacco Addiction Completed 12/20/2016 Patient Education: Hypertension Completed 12/20/2016 Appointment: [facility] [phone] [phone] ([facility] min) Complex 09/06/2016 Visit Plan: Diabetes [...] level 08/23/2016 Appointment: [facility] [phone] [phone] (30 min) Complex 08/23/2016 Patient Education: Patient [...] changes. 05/22/2016 Appointment: Karmen Espinal WPtel: [phone] [phone] (30 min) Complex 05/22/2016 Patient Education: Patient Medication Summary Completed 05/22/2016 Patient Education: Smoking and Tobacco Addiction Completed 05/22/2016 Care Plan: Cbc With Differential Ordered 05/22/2016 Care Plan: %Hba1C [facility] C : 26326-9 Ordered 05/22/2016 Care Plan: Tsh Ordered 05/22/2016 [...] with update 02/24/2016 Appointment: Karmen Espinal WPtel: [phone] (30 min) Complex 02/24/2016 Patient Education: Patient [...] not improved on this regimen. 01/27/2016 Appointment: Teddy Karmen WPtel: [phone] (30 min) [facility] 01/27/2016 Patient Education: Patient Medication Summary Completed [...] POTENTIAL SIDE EFFECTS AND WORSENING OF SYMPTOMS. Qcmfzvaj-sgjjcjtt-GNCT SIMVASTATIN X 2 WEEKS AND CALL WITH [...] Care Plan: [facility] Ordered 03/24/2015 Visit Plan: Diabetes Mellitus - [...] for removal. 03/07/2015 Appointment[phone] ([facility] min) Moderate 03/07/2015 Patient Education: [...] Care Plan: COMPLETE CBC AUTOMATED LOINC : 62524-4 Ordered 12/23/2014 Visit Plan: BPPV - Benign [...] will check at next appt 2014 Appointment: Espinal Karmen WPtel: [phone] [place] New Patient 12/09/2014 Patient Education: [...] readings are starting to become less controlled. Wgdlck-vvoqwiw-zwqxs labs decrease glipizide t o 5mg twice [...] POTENTIAL SIDE EFFECTS AND WORSENING OF SYMPTOMS. Yxidpsly-dctpsyks-QGND SIMVASTATIN X 2 WEEKS AND CALL WITH [...]
--- OUTSIDE RECORDS SUMMARY | 2020-03-29 08:31 | XMS REPORT | CCD ---
Author Author Dick Espinal Organization Violeta Ash MD, [facility] Address [address] [place] [address] Phone Care Team Providers Care Inspector Assemblies And Installations Name Role Phone PP Unavailable CCM Unavailable Summary Purpose Interface Exchange Insurance Providers Payer name Policy type / Coverage type Covered alliance party ID Effective Begin Date Effective End Date WPS Medicare Part B Medicare Part B [id number] Unknown Unknown [employer] Medicar e Part B [id number] Unknown Unkn own Family history Father Diagnosis Age At Onset Cancer Unknown Mother Diagnosis Age At Onset Cancer Unknown Social History Social History Element Codes Description Effective Dates Marital status Unknown M arried 12/09/2014 Employment Unknown Retir ed 12/09/[address]: 02373984 Currently smokes tobacco 12/09/2014 Number of years using tobacco Unknown > 50 12/09/2014 Number of cigarettes/day Unknown 30 (Pack and a half) 12/09/[address]: 367113807 Never drinks alcohol 12/09/2014 Allergies, Adverse Reactions, [...] Protonix 40 mg table t,delayed release RxNorm: 961540 Tablet(s) Take 1 tabl et by mouth BID 02/19/2017 No Stop Date Active lisinopril 10 mg tablet RxNorm: 860448 Take 1 tablet by mouth daily 01/29/2017 07/27/2017 Active - First Attempt Ref: [id number] hydrocodone 5 mg-linh taminophen 325 mg tablet RxNorm: 261156 1 Tablet(s) PO Q6-8H as needed 01/25/2017 02/26/2017 Active simvastatin 40 mg ta blet RxNorm: 806029 Tablet(s) Take 1 tabl et by mouth daily at bedtime 01/03/2017 12/28/2017 Active lisinopril 10 mg tablet RxNorm: 067483 Tablet(s) Take 1 tablet by mouth daily 01/03/2017 01/28/2017 In active Protonix 40 mg table t,delayed release RxNorm: 128194 Tablet(s) Take 1 tabl et by mouth daily 12/28/2016 02/18/2017 Inactive hydrocodone 5 mg-linh taminophen 325 mg tablet RxNorm: 636287 1 Tablet(s) PO Q6-8H as needed 12/26/2016 01/24/2017 Inactive Xanax 0.5 mg tablet RxNorm: 359439 1 Tablet(s) PO TID 12/12/2016 03/11/2017 Active simvastatin 40 mg ta blet RxNorm: 260386 Tablet(s) Take 1 tabl et by mouth daily at bedtime 11/30/2016 01/02/2017 Inactive simvastatin 40 mg ta blet RxNorm: 886611 Take 1 tablet by mout h daily at bedtime 11/29/2016 11/29/2016 In active - First Attempt Ref: [id number] Protonix 40 mg table t,delayed release RxNorm: 543189 Take 1 tablet by mout h daily 11/27/2016 12/27/2016 In active - First Attempt Ref: [id number] hydrocodone 5 mg-linh taminophen 325 mg tablet RxNorm: 615638 1 Tablet(s) PO Q6-8H as needed 11/26/2016 12/25/2016 Inactive hydrocodone 5 mg-linh taminophen 325 mg tablet RxNorm: 086725 1 Tablet(s) PO Q8 as needed 10/24/2016 11/25/2016 Inactive Xanax 0.5 mg tablet RxNorm: 569995 1 Tablet(s) PO TID 10/09/2016 12/25/2016 Inactive hydrocodone 5 mg-linh taminophen 325 mg tablet RxNorm: 466058 1 Tablet(s) PO Q8 as needed 09/27/2016 10/23/2016 Inactive lisinopril 10 mg tablet RxNorm: 339688 Take 1 tablet by mouth daily 09/25/2016 01/02/2017 Inactive - First Attempt Ref: [id number] Vitamin D2 50,000 un it capsule RxNorm: 250278 1 Capsule(s) PO QW 09/06/2016 No Stop Date Active hydrocodone 5 mg-linh taminophen 325 mg tablet RxNorm: 784313 1 Tablet(s) PO Q8 as needed 08/28/2016 09/26/2016 Inactive Toujeo SoloStar 300 unit/mL (1.5 mL) subcutaneous insulin pen RxNorm: 2586702 25 Unit(s) SQ QHS 08/23/2016 No Stop Date Active dosage increase hydrocodone 5 mg-linh taminophen 325 mg tablet RxNorm: 852482 1 Tablet(s) PO Q8 as needed 07/26/2016 08/27/2016 Inactive Protonix 40 mg table t,delayed release RxNorm: 920268 Take 1 tablet by mout h daily 07/24/2016 11/26/2016 In active - First Attempt Ref: [id number] hydrocodone 5 mg-linh taminophen 325 mg tablet RxNorm: 901298 1 Tablet(s) PO Q8 as needed 06/19/2016 07/21/2016 Inactive Toujeo SoloStar 300 unit/mL (1.5 mL) subcutaneous insulin pen RxNorm: 6980748 32 Unit(s) SQ QHS 05/30/2016 08/22/2016 Inactive dosage increase hydrocodone 5 mg-linh taminophen 325 mg tablet RxNorm: 295845 1 Tablet(s) PO Q8 as needed 05/22/2016 06/18/2016 Inactive hydrocodone 5 mg-linh taminophen 325 mg tablet RxNorm: 499815 1 Tablet(s) PO Q8 as needed 04/18/2016 05/17/2016 Inactive Protonix 40 mg table t,delayed release RxNorm: 482119 Take 1 tablet by mout h daily 04/05/2016 07/03/2016 In active - Ref: [id number] metformin 500 mg tablet RxNorm: 137654 Take 1 tablet by mouth daily 04/04/2016 07/02/2016 Inactive - Ref: [id number] Xanax 0.5 mg tablet RxNorm: 400017 1 Tablet(s) PO TID 03/30/2016 09/25/2016 Inactive Xanax 0.5 mg tablet RxNorm: 537537 1 Tablet(s) PO TID 03/23/2016 12/25/2016 Inactive hydrocodone 5 mg-linh taminophen 325 mg tablet RxNorm: 263815 1 Tablet(s) PO Q8 as needed 03/06/2016 04/04/2016 Inactive Cipro 500 mg tablet RxNorm: 416634 1 Tablet(s) PO BID 02/24/2016 03/04/2016 Inactive Miralax 17 gram oral powder packet RxNorm: 401382 1 packet PO every oth er day 01/27/2016 No Stop Date Active hydrocodone 5 mg-linh taminophen 325 mg tablet RxNorm: 132004 1 Tablet(s) PO Q8 as needed 01/27/2016 02/25/2016 Inactive lisinopril 10 mg tablet RxNorm: 976543 1 Tablet(s) PO daily 01/12/2016 09/24/2016 Inactive simvastatin 40 mg ta blet RxNorm: 457605 1 Tablet(s) PO QHS 01/12/2016 11/28/2016 Inactive simvastatin 40 mg ta blet RxNorm: 098736 1 Tablet(s) PO QHS 01/11/2016 01/11/2016 Inactive lisinopril 10 mg tablet RxNorm: 997620 1 Tablet(s) PO daily 01/06/2016 01/11/2016 Inactive simvastatin 40 mg ta blet RxNorm: 193090 1 Tablet(s) PO daily 12/28/2015 01/10/2016 Inactive hydrocodone 5 mg-linh taminophen 325 mg tablet RxNorm: 484317 1 Tablet(s) PO Q8 as needed 12/27/2015 01/26/2016 Inactive Xanax 0.5 mg tablet RxNorm: 525838 1 Tablet(s) PO TID 11/30/2015 03/29/2016 Inactive meclizine 25 mg tablet RxNorm: 042530 1 Tablet(s) PO Q6 PRN TAKE ONE TABLET BY MOUTH EVERY 6 HOURS NEEDED 11/25/2015 02/22/2016 Inactive Toujeo SoloStar 300 unit/mL (1.5 mL) subcutaneous insulin pen RxNorm: 9086038 30 Unit(s) SQ QHS 11/25/2015 05/29/2016 Inactive dosage increase omeprazole 20 mg cap jacquelyn,delayed release RxNorm: 353949 1 Capsule(s) PO daily 10/06/2015 01/26/2016 In active Toujeo SoloStar 300 unit/mL (1.5 mL) subcutaneous insulin pen RxNorm: 4011007 35 Unit(s) SQ QHS 08/02/2015 11/24/2015 Inactive dosage increase Vitamin D2 50,000 un it capsule RxNorm: 851586 1 Capsule(s) PO QW 08/02/2015 09/05/2016 Inactive hydrocodone 5 mg-linh taminophen 325 mg tablet RxNorm: 952455 1 Tablet(s) PO Q8 as needed 07/11/2015 12/26/2015 Inactive Xanax 0.5 mg tablet RxNorm: 553471 1 Tablet(s) PO TID 06/30/2015 06/29/2015 Inactive Xanax 0.5 mg tablet RxNorm: 427649 1 Tablet(s) PO TID 06/30/2015 12/25/2015 Inactive hydrocodone 5 mg-linh taminophen 325 mg tablet RxNorm: 883244 1 Tablet(s) PO Q8 as needed 05/06/2015 07/10/2015 Inactive Symbicort 160 mcg-4. 5 mcg/actuation HFA aerosol inhaler RxNorm: 5542317 INH 04/25/2015 No Stop Date Active Levemir FlexTouch 10 0 unit/mL (3 mL) subcutaneous insulin pen RxNorm: 327318 30 Unit(s) SQ QHS 04/25/2015 11/24/2015 Inactive prednisone 20 mg tablet RxNorm: 525896 1 Tablet(s) PO BID 04/25/2015 04/29/2015 Inactive metformin 500 mg tablet RxNorm: 550546 1 Tablet(s) PO daily 04/25/2015 04/03/2016 Inactive amoxicillin 500 mg c apsule RxNorm: 143967 1 Capsule(s) PO TID 04/14/2015 04/13/2015 Inactive amoxicillin 500 mg c apsule RxNorm: 709499 1 Capsule(s) PO TID a nd recommend probiotic tid (otc) 04/14/2015 04/20/2015 Inactive Kenalog 40 mg/mL bartolome pension for injection RxNorm: 7409483 Milliliter(s) Inj 04/12/2015 04/12/2015 In active hydrocodone 5 mg-linh taminophen 325 mg tablet RxNorm: 745556 1 Tablet(s) PO Q8 as needed 03/30/2015 05/05/2015 Inactive Lantus 100 unit/mL s ubcutaneous solution RxNorm: 490615 25 Unit(s) SQ QPM 03/24/2015 04/25/2015 In active meclizine 25 mg tablet RxNorm: 696109 Tablet(s) TAKE ONE TABLET BY MOUTH EVERY 6 HOURS NEEDED 03/08/2015 04/06/2015 Inactive meclizine 25 mg tablet RxNorm: 047765 TAKE ONE TABLET BY MOUTH EVERY 6 HOURS A S NEEDED 02/25/2015 03/03/2015 Inactive Lantus 100 unit/mL s ubcutaneous solution RxNorm: 417547 20 Unit(s) SQ QPM 02/23/2015 03/23/2015 In active Lantus 100 unit/mL s ubcutaneous solution RxNorm: 269924 25 Unit(s) SQ QPM 02/23/2015 02/22/2015 In active hydrocodone 5 mg-linh taminophen 325 mg tablet RxNorm: 183551 1 Tablet(s) PO Q8 as needed 02/17/2015 03/29/2015 Inactive Xanax 0.5 mg tablet RxNorm: 888591 1 Tablet(s) PO TID 02/03/2015 06/29/2015 Inactive Lantus 100 unit/mL s ubcutaneous solution RxNorm: 617090 20 Unit(s) SQ QPM 12/29/2014 02/22/2015 In active Phenergan 12.5 mg re ctal suppository RxNorm: 111503 1 Suppository RTL Q6 PRN 12/23/2014 No Stop Date Active nausea Kenalog 40 mg/mL bartolome pension for injection RxNorm: 1730540 Milliliter(s) Inj 12/23/2014 12/23/2014 In active prednisone 20 mg tablet RxNorm: 335845 2 Tablet(s) PO daily 12/13/2014 12/17/2014 Inactive prednisone 20 mg tablet RxNorm: 454414 2 Tablet(s) PO daily 12/13/2014 12/12/2014 Inactive meclizine 25 mg tablet RxNorm: 227656 1 Tablet(s) PO Q6 PRN 12/09/2014 02/24/2015 Inactive hydrocodone 5 mg-linh taminophen 325 mg tablet RxNorm: 368613 1 Tablet(s) PO Q8 as needed 12/09/2014 02/16/2015 Inactive Vitamin B-12 1,000 m cg/mL oral drops RxNorm: 5116985 1 Milliliter(s) PO d aily No Start Date Active Alphagan P 0.1 % eye drops RxNorm: 961060 1 Drop(s) OPH BID No Start Date Active aspirin 325 mg table t,delayed release RxNorm: 139201 1 Tablet(s) PO daily No Start Date Active Tricor 145 mg tablet RxNorm: 801093 1 Tablet(s) PO daily No Start Date Active vitamin [id number] B1 oral liquid RxNorm: 1,000 Microgram(s) PO daily No Start Date Active atenolol 50 mg tablet RxNorm: 111347 1 Tablet(s) PO daily No Start Date Active Protonix 40 mg table t,delayed release RxNorm: 879440 1 Tablet(s) PO daily No Start Date 04/04/2016 Inactive glipizide 10 mg tablet RxNorm: 692238 1 Tablet(s) PO BID No Start Date 03/22/2015 Inactive Lantus 100 unit/mL s ubcutaneous solution RxNorm: 491683 15 Unit(s) SQ QPM No Start Date 12/28/2014 Inactive lisinopril 10 mg tablet RxNorm: 366335 1 Tablet(s) PO daily No Start Date 01/05/2016 Inactive Vitamin D2 50,000 un it capsule RxNorm: 678662 1 Capsule(s) PO QW No Start Date 08/01/2015 Inactive Touanuj SoloStar 300 unit/mL (1.5 mL) subcutaneous insulin pen RxNorm: 2562506 30 Unit(s) SQ QHS No Start Date 08/01/2015 Inactive simvastatin 40 mg ta blet RxNorm: 368775 1 Tablet(s) PO daily No Start Date 12/27/2015 Inactive hydrocodone 5 mg-linh taminophen 325 mg tablet RxNorm: 393996 1 Tablet(s) PO Q8 as needed No Start Date 12/08/2014 Inactive metformin 500 mg tablet RxNorm: 866488 1 Tablet(s) PO daily No Start Date 04/24/2015 Inactive omeprazole 20 mg cap jacquelyn,delayed release RxNorm: 431523 1 Capsule(s) PO daily No Start Date 10/05/2015 Inactive Flomax 0.4 mg capsule RxNorm: 393163 1 Capsule(s) PO daily No Start Date 03/23/2015 Inactive Medication Administered Medication Codes Instruc tions Start Date Status Kenalog 40 mg/mL suspension for injection RxNorm: 8303574 Milliliter 04/12/2015 No longer Active Kenalog 40 mg/mL suspension for injection RxNorm: 7274658 Milliliter 12/23/2014 No longer Active Immunizations Vaccine [...] Code Result Date Vitamin D 25 Oh [id number] VITAMIN D, 25 HYDROXY 44.40 ng/mL 12/21/2016 Comp Metabolic Qea094 NA 131 mEq/L 12/21/2016 Comp Metabolic Qlq299 K 4.2 mEq/L 12/21/2016 Comp Metabolic Fir006 CL 97 mEq/L 12/21/2016 Comp Metabolic Yin200 CO2 27.0 mEq/L 12/21/2016 Comp Metabolic Rev398 AN ION GAP 11 12/21/2016 Comp Metabolic Jch038 GL UCOSE 266 mg/dL 12/21/2016 Comp Metabolic Ixr459 Cr eat 0.9 mg/dL 12/21/2016 Comp Metabolic Azp700 eG FR 88 ml/min/1.73m2 12/21 Comp Metabolic Czp113 BUN 12 mg/dL 12/21/2016 Comp Metabolic Pzr181 B/ C Ratio 13.6 Ratio 12/21/2016 Comp Metabolic Djd027 CA LCIUM 8.6 mg/dL 12/21/2016 Comp Metabolic Mgx541 AL K PHOS 69 U/L 12/21/2016 Comp Metabolic Tdc927 T(SGOT) 15 U/L 12/21/2016 Comp Metabolic Tzg605 AL T(SGPT) 14 U/L 12/21/2016 Comp Metabolic Jxn959 BI LI T 0.3 mg/dL 12/21/2016 Comp Metabolic Soo011 AL BUMIN 3.7 g/dL 12/21/2016 Comp Metabolic Vcn737 TP RO 5.9 g/dL 12/21/2016 Comp Metabolic Wsz503 GL OB 2.2 g/dL 12/21/2016 Comp Metabolic Yjn219 A/ G Ratio 1.7 Ratio 12/21/2016 Comp Metabolic Ptx157 Os mo 272 mOsmo 12/21/2016 Cbc With [...] 39.5 % 12/21/2016 Cbc With Differential Ord2 [place]% 6.9 % 12/21/2016 Cbc With Differential Ord2 [...] 2.05 K/ul 12/21/2016 Cbc With Differential Ord2 [place] ABS# 0.4 K/ul 12/21/2016 Cbc With Differential Ord2 Eos ABS# 0.2 K/ul 12/21/2016 Cbc With Differential Ord2 Baso ABS# 0.0 K/ul 12/21/2016 Comp Metabolic Bvd616 NA 138 mEq/L 09/03/2016 Comp Metabolic Jqv256 K 4.5 mEq/L 09/03/2016 Comp Metabolic Pwe851 CL 102 mEq/L 09/03/2016 Comp Metabolic Gjs800 CO2 30.0 mEq/L 09/03/2016 Comp Metabolic Xrx365 AN ION GAP 11 09/03/2016 Comp Metabolic Tfi340 GL UCOSE 113 mg/dL 09/03/2016 Comp Metabolic Iop495 Cr eat 1.0 mg/dL 09/03/2016 Comp Metabolic Ave424 eG FR 81 ml/min/1.73m2 09/03 Comp Metabolic Jkv882 BUN 10 mg/dL 09/03/2016 Comp Metabolic Sct663 B/ C Ratio 10.5 Ratio 09/03/2016 Comp Metabolic Uzn588 CA LCIUM 9.1 mg/dL 09/03/2016 Comp Metabolic Kyn396 AL K PHOS 71 U/L 09/03/2016 Comp Metabolic Wkh404 T(SGOT) 18 U/L 09/03/2016 Comp Metabolic Sro100 AL T(SGPT) 17 U/L 09/03/2016 Comp Metabolic Fmb057 BI LI T 0.6 mg/dL 09/03/2016 Comp Metabolic Crg484 AL BUMIN 4.1 g/dL 09/03/2016 Comp Metabolic Gnx116 TP RO 6.4 g/dL 09/03/2016 Comp Metabolic Mhp959 GL OB 2.3 g/dL 09/03/2016 Comp Metabolic Hzt711 A/ G Ratio 1.8 Ratio 09/03/2016 Comp Metabolic Fyl930 Os mo 276 mOsmo 09/03/2016 Vitamin D 25 Oh Wgx4600 VITAMIN D, 25 HYDROXY 28.23 ng/mL 09/03/2016 [...] 101.9 fl 09/03/2016 Cbc With Differential Ord2 [place]% 8.9 % 09/03/2016 Cbc With Differential Ord2 [...] 3.34 K/ul 09/03/2016 Cbc With Differential Ord2 [place] ABS# 0.7 K/ul 09/03/2016 Cbc With Differential Ord2 Eos ABS# 0.4 K/ul 09/03/2016 Cbc With Differential Ord2 Baso ABS# 0.0 K/ul 09/03/2016 Lipid Ord30 CHOL 120 mg/dL 09/03/2016 Lipid Ord30 HDL 33.0 mg/dl 09/03/2016 Lipid Ord30 TRIG 161 mg/dL 09/03/2016 Lipid Ord30 LDL 55 mg/dL 09/03/2016 Lipid Ord30 C/HDL 3.6 Ratio 09/03/2016 %Hba1C Cbl265 % HbA1c 31014-0 7.5 % 09/03/2016 %Hba1C Yll840 Gluc Ave 169 mg/dL 09/03/2016 Tsh Ord6 hTSH II 1.50 uIU/mL 05/23/2016 %Hba1C Gud860 % HbA1c 59852-9 7.6 % 05/23/2016 %Hba1C Izm066 Gluc Ave 171 mg/dL 05/23/2016 Comp Metabolic Ujd903 NA 135 mEq/L 05/23/2016 Comp Metabolic Wlw700 K 4.4 mEq/L 05/23/2016 Comp Metabolic Dqf361 CL 99 mEq/L 05/23/2016 Comp Metabolic Qec022 CO2 28.0 mEq/L 05/23/2016 Comp Metabolic Quk830 AN ION GAP 12 05/23/2016 Comp Metabolic Fpg078 GL UCOSE 257 mg/dL 05/23/2016 Comp Metabolic Tku251 Cr eat 0.8 mg/dL 05/23/2016 Comp Metabolic Tac197 eG FR 95 ml/min/1.73m2 05/23 Comp Metabolic Mxz799 BUN 11 mg/dL 05/23/2016 Comp Metabolic Prw993 B/ C Ratio 13.3 Ratio 05/23/2016 Comp Metabolic Vde836 CA LCIUM 9.0 mg/dL 05/23/2016 Comp Metabolic Wnq246 AL K PHOS 82 U/L 05/23/2016 Comp Metabolic Los943 T(SGOT) 21 U/L 05/23/2016 Comp Metabolic Exz958 AL T(SGPT) 20 U/L 05/23/2016 Comp Metabolic Smo827 BI LI T 0.3 mg/dL 05/23/2016 Comp Metabolic Pzw767 AL BUMIN 4.0 g/dL 05/23/2016 Comp Metabolic Fap264 TP RO 6.4 g/dL 05/23/2016 Comp Metabolic Vvu613 GL OB 2.4 g/dL 05/23/2016 Comp Metabolic Dvz808 A/ G Ratio 1.6 Ratio 05/23/2016 Comp Metabolic Hlq647 Os mo 278 mOsmo 05/23/2016 Cbc With [...] 34.5 pg 05/23/2016 Cbc With Differential Ord2 [place]% 6.1 % 05/23/2016 Cbc With Differential Ord2 [...] 2.38 K/ul 05/23/2016 Cbc With Differential Ord2 [place] ABS# 0.4 K/ul 05/23/2016 Cbc With Differential Ord2 Eos ABS# 0.2 K/ul 05/23/2016 Cbc With Differential Ord2 Baso ABS# 0.0 K/ul 05/23/2016 B12 Kcd723 B12 597.00 pg/ml 05/23/2016 Metabolic Ord15 NA [...] 0.92 uIU/mL 07/29/2015 Vitamin D 25 Oh Cem7267 VITAMIN D, 25 HYDROXY 26.93 ng/mL 07/29/2015 %Hba1C Cbf410 % HbA1c 57110-0 8.8 % 07/29/2015 %Hba1C Ofr004 Gluc Ave 206 mg/dL 07/29/2015 Cbc With [...] Ord2 RDW 14.9 % 07/29/2015 Comp Metabolic Pky051 NA 138 mEq/L 07/29/2015 Comp Metabolic Ujo847 K 4.4 mEq/L 07/29/2015 Comp Metabolic Pzn547 CL 102 mEq/L 07/29/2015 Comp Metabolic Fol526 CO2 28.0 mEq/L 07/29/2015 Comp Metabolic Mjv376 AN ION GAP 12 07/29/2015 Comp Metabolic Oso128 GL UCOSE 261 mg/dL 07/29/2015 Comp Metabolic Wdr557 Cr eat 1.0 mg/dL 07/29/2015 Comp Metabolic Xxu112 eG FR 77 ml/min/1.73m2 07/29 Comp Metabolic Fvq649 BUN 13 mg/dL 07/29/2015 Comp Metabolic Vmp805 B/ C Ratio 13.0 Ratio 07/29/2015 Comp Metabolic Hem263 CA LCIUM 9.1 mg/dL 07/29/2015 Comp Metabolic Ark911 AL K PHOS 64 U/L 07/29/2015 Comp Metabolic Fge766 T(SGOT) 20 U/L 07/29/2015 Comp Metabolic Xhz156 AL T(SGPT) 22 U/L 07/29/2015 Comp Metabolic Wvy786 BI LI T 0.4 mg/dL 07/29/2015 Comp Metabolic Kmo387 AL BUMIN 4.0 g/dL 07/29/2015 Comp Metabolic Luk558 TP RO 6.1 g/dL 07/29/2015 Comp Metabolic Daq618 GL OB 2.1 g/dL 07/29/2015 Comp Metabolic Oyf622 A/ G Ratio 1.9 Ratio 07/29/2015 Comp Metabolic Nwh398 Os mo 285 mOsmo 07/29/2015 Cbc With [...] Ord2 RDW 13.1 % 05/06/2015 Comp Metabolic Kzp490 NA 134 mEq/L 05/06/2015 Comp Metabolic Zhs840 K 4.4 mEq/L 05/06/2015 Comp Metabolic Cjn056 CL 98 mEq/L 05/06/2015 Comp Metabolic Qpt198 CO2 29.0 mEq/L 05/06/2015 Comp Metabolic Ukp039 AN ION GAP 11 05/06/2015 Comp Metabolic Phw103 GL UCOSE 321 mg/dL 05/06/2015 Comp Metabolic Yhx714 Cr eat 1.0 mg/dL 05/06/2015 Comp Metabolic Ujs859 eG FR 78 ml/min/1.73m2 05/06 Comp Metabolic Euv229 BUN 20 mg/dL 05/06/2015 Comp Metabolic Eou532 B/ C Ratio 20.4 Ratio 05/06/2015 Comp Metabolic Utq133 CA LCIUM 9.5 mg/dL 05/06/2015 Comp Metabolic Vpy941 AL K PHOS 62 U/L 05/06/2015 Comp Metabolic Zba625 T(SGOT) 21 U/L 05/06/2015 Comp Metabolic Nyu674 AL T(SGPT) 37 U/L 05/06/2015 Comp Metabolic Fxv480 BI LI T 0.4 mg/dL 05/06/2015 Comp Metabolic Doj689 AL BUMIN 3.8 g/dL 05/06/2015 Comp Metabolic Aqj862 TP RO 6.1 g/dL 05/06/2015 Comp Metabolic Oto738 GL OB 2.3 g/dL 05/06/2015 Comp Metabolic Wzr234 A/ G Ratio 1.7 Ratio 05/06/2015 Comp Metabolic Hpt916 Os mo 283 mOsmo 05/06/2015 Tsh Ord6 hTSH II 1.65 uIU/mL 02/18/2015 B12 Lvl701 B12 605.00 pg/ml 02/18/2015 %Hba1C Ruz451 % HbA1c 45239-1 8.3 % 02/18/2015 %Hba1C Ony429 Gluc Ave 192 mg/dL 02/18/2015 Cbc With [...] Ord2 RDW 13.9 % 02/17/2015 Comp Metabolic Lmp220 NA 137 mEq/L 02/17/2015 Comp Metabolic Cwe869 K 4.4 mEq/L 02/17/2015 Comp Metabolic Nxh127 CL 100 mEq/L 02/17/2015 Comp Metabolic Nar780 CO2 31.0 mEq/L 02/17/2015 Comp Metabolic Kfz473 AN ION GAP 10 02/17/2015 Comp Metabolic Zrt313 GL UCOSE 307 mg/dL 02/17/2015 Comp Metabolic Wfk468 Cr eat 1.0 mg/dL 02/17/2015 Comp Metabolic Vek648 eG FR 74 ml/min/1.73m2 02/17 Comp Metabolic Bgo472 BUN 22 mg/dL 02/17/2015 Comp Metabolic Uvo538 B/ C Ratio 21.4 Ratio 02/17/2015 Comp Metabolic Xdb920 CA LCIUM 9.5 mg/dL 02/17/2015 Comp Metabolic Aan723 AL K PHOS 78 U/L 02/17/2015 Comp Metabolic Ktm670 T(SGOT) 18 U/L 02/17/2015 Comp Metabolic Fle227 AL T(SGPT) 32 U/L 02/17/2015 Comp Metabolic Zwl029 BI LI T 0.5 mg/dL 02/17/2015 Comp Metabolic Ejg521 AL BUMIN 4.3 g/dL 02/17/2015 Comp Metabolic Jul884 TP RO 6.7 g/dL 02/17/2015 Comp Metabolic Irx294 GL OB 2.4 g/dL 02/17/2015 Comp Metabolic Swo234 A/ G Ratio 1.8 Ratio 02/17/2015 Comp Metabolic Kjh187 Os mo 289 mOsmo 02/17/2015 Review of [...] inspection of skin Location: face 03/07/2015 on confucianist, cheeks,actinic keratosis with irritation on left cheek - left confucianist - croptherapy on these two lesions - [...] Date ADMIN INFLUENZA VIRU S VAC CPT-4: L6155Oupmohm 05/22/2016 FLU VACC 4 TELLY 3 YRS PLUS IM Formatting Model/CDA Sections, Assigned to/Angela Clemons SNOMED CT: [id number] CPT-4: 00438Dvaulqm 05/22/2016 TOBACCO-USE EDITOR NEWS 3-[address]: 625498075 CPT-4: L0531Lmjtouh 11/25/2015 URINALYSIS NONAUTO W /O SCOPE CPT-4: 61170Nslggbz 05/09/2015 TRIAMCINOLONE ACET I [place] NOS CPT-4: U9620Nwelmwp 04/12/2015 DESTRUCT PREMALG LES ION CPT-4: 89642Hjmlvjl 03/07/2015 DESTRUCT PREMALG LES 2-14 CPT-4: 93624Emxohlm 03/07/2015 REMOVE IMPACTED EAR WAX UNI CPT-4: 57226Zjbndcg 12/31/2014 THER/PROPH/DIAG INJ SC/IM CPT-4: 56842Kzuerda 12/23/2014 TRIAMCINOLONE ACET I [place] NOS CPT-4: D7351Pxlkhoz 12/23/2014 Vital Signs Date Vital 02/19/2017 Blood Pressure 1: 138/64 Code: 8480-6 BMI: 21.3 Code: 58824-6 Heart Rate 1: 52 bpm Height: 5'11" SpO2: 96% Weight: 152 lbs 8 oz 01/21/2017 Blood Pressure 1: 160/68 Code: 8480-6 BMI: 21.3 Code: 41248-5 Heart Rate 1: 62 bpm Height: 5'11" SpO2: 96% Weight: 153 lbs 12/20/2016 Blood Pressure 1: 124/66 Code: 8480-6 BMI: 21.5 Code: 45262-9 Height: 5'11" Weight: 154 lbs 08/23/2016 Blood Pressure 1: 142/52 Code: 8480-6 BMI: 21.2 Code: 92614-2 Heart Rate 1: 54 bpm Height: 5'11" SpO2: 96% Weight: 152 lbs 05/22/2016 Blood Pressure 1: 130/76 Code: 8480-6 BMI: 21.5 Code: 24539-1 Heart Rate 1: 78 bpm Height: 5'11" SpO2: 92% Weight: 154 lbs 02/24/2016 Blood Pressure 1: 128/80 Code: 8480-6 BMI: 21.2 Code: 26314-2 Heart Rate 1: 74 bpm Height: 5'11" SpO2: 96% Weight: 152 lbs 01/27/2016 Blood Pressure 1: 144/60 Code: 8480-6 BMI: 21.2 Code: 46645-3 Heart Rate 1: 74 bpm Height: 5'11" SpO2: 97% Weight: 152 lbs 11/25/2015 Blood Pressure 1: 110/52 Code: 8480-6 BMI: 21.9 Code: 16952-5 Heart Rate 1: 65 bpm Height: 5'11" SpO2: 92% Weight: 157 lbs 07/28/2015 Blood Pressure 1: 138/62 Code: 8480-6 BMI: 21.8 Code: 15669-8 Heart Rate 1: 63 bpm Height: 5'11" SpO2: 91% Weight: 156 lbs 05/26/2015 Blood Pressure 1: 120/58 Code: 8480-6 BMI: 21.5 Code: 43248-6 Heart Rate 1: 99 bpm Height: 5'11" SpO2: 96% Weight: 154 lbs 05/06/2015 Blood Pressure 1: 120/58 Code: 8480-6 BMI: 21.2 Code: 12558-6 Heart Rate 1: 66 bpm Height: 5'11" SpO2: 96% Weight: 152 lbs 04/25/2015 Blood Pressure 1: 136/62 Code: 8480-6 BMI: 21.2 Code: 90859-0 Heart Rate 1: 63 bpm Height: 5'11" SpO2: 97% Weight: 152 lbs 04/12/2015 Blood Pressure 1: 160/58 Code: 8480-6 BMI: 21.6 Code: 67883-6 Heart Rate 1: 62 bpm Height: 5'11" Weight: 155 lbs 03/24/2015 Blood Pressure 1: 138/68 Code: 8480-6 BMI: 22.0 Code: 32884-3 Heart Rate 1: 65 bpm Height: 5'11" SpO2: 96% Weight: 158 lbs 03/07/2015 Blood Pressure 1: 116/52 Code: 8480-6 BMI: 22.2 Code: 16751-0 Heart Rate 1: 64 bpm Height: 5'11" SpO2: 97% Weight: 159 lbs 02/17/2015 Blood Pressure 1: 148/58 Code: 8480-6 BMI: 21.3 Code: 99693-4 Heart Rate 1: 63 bpm Height: 5'11" SpO2: 97% Weight: 153 lbs 12/31/2014 Blood Pressure 1: 100/60 Code: 8480-6 BMI: 21.8 Code: 77795-6 Heart Rate 1: 68 bpm Height: 5'11" Weight: 156 lbs 12/23/2014 Blood Pressure 1: 148/64 Code: 8480-6 BMI: 21.9 Code: 98290-1 Heart Rate 1: 64 bpm Height: 5'11" [...] Encounters Encounter Performer Loca tion Codes Date ([id number]) [id number] EST. P ATIENT, LEVEL IV Diagnosis: Type 2 diabetes mellitus with hyperglycemia[ICD10: E11.65] Diagnosis: Essential (primary) hypertension[ICD10: I10] Diagnosis: Anemia, unspecified[ICD10: D64.9] Karmen Ash MD, [facility] CPT- 4: 91390 02/19/2017 ([id number]) 04180 EST. P ATIENT, LEVEL IV Diagnosis: Slow transit constipation[ICD10: K59.01] Diagnosis: Gastro-esophageal reflux disease without esophagitis[ICD10: K21.9] Diagnosis: Essential (primary) hypertension[ICD10: I10] Karmen Ash MD, [facility] CPT-4: 35763 01/21/2017 ([id number]) 74469 EST. P ATIENT, LEVEL IV Diagnosis: Type 2 diabetes mellitus with hyperglycemia[ICD10: E11.65] Diagnosis: Vitamin D deficiency, unspecified[ICD10: E55.9] Diagnosis: Essential (primary) hypertension[ICD10: I10] Diagnosis: Chronic obstructive pulmonary disease, unspecified[ICD10: J44.9] [facility] CPT-4: 93971 12/20/2016 ([id number]) 38904 EST. P ATIENT, LEVEL IV Diagnosis: Type 2 diabetes mellitus with hyperglycemia[ICD10: E11.65] Diagnosis: Essential (primary) hypertension[ICD10: I10] Diagnosis: Mixed hyperlipidemia[ICD10: E78.2] Diagnosis: Vitamin D deficiency, unspecified[ICD10: E55.9] Karmen Ash MD, [facility] CPT-4: 47842 08/23/2016 ([id number]) 05114 EST. P ATIENT, LEVEL IV Diagnosis: Type 2 diabetes mellitus with hyperglycemia[ICD10: E11.65] Diagnosis: Essential (primary) hypertension[ICD10: I10] Diagnosis: Chronic obstructive pulmonary disease, unspecified[ICD10: J44.9] Karmen Ash MD, [facility] CPT-4: 59696 05/22/2016 ([id number]) 94368 EST. P ATIENT, LEVEL III Diagnosis: Dysuria[ICD10: R30.0] Diagnosis: Essential (primary) hypertension[ICD10: I10] Karmen Ash MD, [facility] CPT-4: 35181 02/24/2016 ([id number]) 46321 EST. P ATIENT, LEVEL IV Diagnosis: Gastro-esophageal reflux disease without esophagitis[ICD10: K21.9] Diagnosis: Slow transit constipation[ICD10: K59.01] Diagnosis: Type 2 diabetes mellitus with hyperglycemia[ICD10: E11.65] Karmen Ash MD, [facility] CPT-4: 44431 01/27/2016 ([id number]) 41455 EST. P ATIENT, LEVEL IV Diagnosis: Essential (primary) hypertension[ICD10: I10] Diagnosis: Type 2 diabetes mellitus with hyperglycemia[ICD10: E11.65] Diagnosis: Vitamin D deficiency, unspecified[ICD10: E55.9] Diagnosis: Chronic obstructive pulmonary disease, unspecified[ICD10: J44.9] Diagnosis: Mixed hyperlipidemia[ICD10: E78.2] Diagnosis: Tobacco use[ICD10: Z72.0] Karmen Ash MD, [facility] CPT- 4: 75741 11/25/2015 ([id number]) 98918 EST. P ATIENT, LEVEL IV Diagnosis: Type 2 diabetes mellitus with hyperglycemia[ICD10: E11.65] Diagnosis: Essential (primary) hypertension[ICD10: I10] Diagnosis: Vitamin D deficiency, unspecified[ICD10: E55.9] Karmen Ash MD, [facility] CPT-4: 98447 07/28/2015 ([id number]) 70577 EST. P ATIENT, LEVEL III Diagnosis: Type 2 diabetes mellitus with hyperglycemia[ICD10: E11.65] Diagnosis: Essential (primary) hypertension[ICD10: I10] Violeta Ash MD, [facility] CPT-4: 10462 05/26/2015 ([id number]) 80245 EST. P ATIENT, LEVEL III Diagnosis: DIABETES TYPE II[ICD9: 250.00] Diagnosis: COPD (chronic obstructive pulmonary disease)[ICD9: 496] Diagnosis: ESSENTIAL HYPERTENSION[ICD9: 401.9] Diagnosis: Cough[ICD9: 786.2] Violeta Ash MD, [facility] CPT-4: 57890 05/06/2015 ([id number]) 26003 EST. P ATIENT, LEVEL III Diagnosis: COPD (chronic obstructive pulmonary disease)[ICD9: 496] Diagnosis: DIABETES TYPE II[ICD9: 250.00] Diagnosis: Muscle ache[ICD9: 729.1] Karmen Ash MD, [facility] CPT- 4: 61389 04/25/2015 ([id number]) 14027 EST. P ATIENT, LEVEL III Diagnosis: ACTINIC KERATOSIS[ICD9: 702.0] Diagnosis: COPD (chronic obstructive pulmonary disease)[ICD9: 496] Diagnosis: DIABETES TYPE II[ICD9: 250.00] Diagnosis: ACUTE URI[ICD9: 465.9] Violeta Ash MD, [facility] CPT-4: 44098 04/12/2015 ([id number]) 86434 EST. P ATIENT, LEVEL III Diagnosis: DIABETES TYPE II[ICD9: 250.00] Violeta Ash MD, [facility] CPT-4: 79531 03/24/2015 ([id number]) 38182 EST. P ATIENT, LEVEL IV Diagnosis: DIABETES TYPE II[ICD9: 250.00] Diagnosis: Hypoglycemia[ICD9: 251.2] Diagnosis: Skin texture changes[ICD9: 782.8] Violeta Ash MD, [facility] CPT-4: 30618 03/07/2015 ([id number]) 89033 EST. P ATIENT, LEVEL IV Diagnosis: COPD (chronic obstructive pulmonary disease)[ICD9: 496] Diagnosis: Fatigue[ICD9: 780.79] Diagnosis: Insulin dependent diabetes mellitus[ICD9: 250.00] Diagnosis: Unsteady gait[ICD9: 781.2] Maame Ash MD, [facility] CPT-4: 48700 02/17/2015 ([id number]) 86509 EST. [facility] Diagnosis: BPPV (benign paroxysmal positional vertigo)[ICD9: 386.11] Diagnosis: Impacted cerumen[ICD9: 380.4] Diagnosis: ESSENTIAL HYPERTENSION[ICD9: 401.9] Diagnosis: Insulin dependent diabetes mellitus[ICD9: 250.00] Karmen Ash MD, [facility] CPT-4: 91822 12/23/2014 ([id number]) OFFICE VISI T, NEW - LEVEL 4 Diagnosis: Insulin dependent diabetes mellitus[ICD9: 250.00] Diagnosis: BPPV (benign paroxysmal positional vertigo)[ICD9: 386.11] Diagnosis: COPD (chronic obstructive pulmonary disease)[ICD9: 496] Diagnosis: Tobacco abuse[ICD9: 305.1] Diagnosis: Osteoarthritis[ICD9: 715.90] Karmen Ash MD, [facility] CPT- 4: 57764 12/09/2014 Plan of Care Planned Activity Notes [...] glucose readings are starting to become less controlled.Twygng-nilauxk-rnwwk labs 02/19/2017 Patient Education: Patient Medication Summary Completed 02/19/2017 Patient Education: Smoking and Tobacco Addiction Completed 02/19/2017 Patient Education: Hypertension Completed 02/19/2017 Care Plan: Comp Metabolic Pending 02/19/2017 Care Plan: Cbc With Differential Pending 02/19/2017 Care Plan: Tsh Pending 02/19/2017 Care Plan: %Hba1C LOIN C : 38530-7 Pending 02/19/2017 Visit Plan: Esophageal Reflux - [...] month 01/21/2017 Appointment: Karmen Espinal WPtel: [phone] [phone] (30 min) Complex 01/21/2017 Patient Education: Patient Medication Summary Completed 01/21/2017 Patient Education: Smoking and Tobacco Addiction Completed 01/21/2017 Patient Education: Hypertension Completed 01/21/2017 Care Plan: Referral Order SNOMED-CT : [id number] Pending 01/21/2017 Visit Plan: Diabetes Mellitus - [...] changes. 12/20/2016 Appointment: Karmen Espinal WPtel: [phone] [phone] (30 min) Complex 12/20/2016 Patient Education: Patient Medication Summary Completed 12/20/2016 Patient Education: Smoking and Tobacco Addiction Completed 12/20/2016 Patient Education: Hypertension Completed 12/20/2016 [facility]ment: [facility] [phone] [phone] (30 min) Complex 09/06/2016 Visit Plan: Diabetes [...] level 08/23/2016 Appointment: [facility] [phone] [facility] [phone] (30 min) Complex 08/23/2016 Patient Education: Patient [...] acute changes. 05/22/2016 Appointment: Karmen Espinal WPtel: [address] [place], [place] [phone] [place] [address] (30 min) Complex 05/22/2016 Patient Education: Patient Medication Summary Completed 05/22/2016 Patient Education: Smoking and Tobacco Addiction Completed 05/22/2016 Care Plan: Cbc With Differential Ordered 05/22/2016 Care Plan: %Hba1C LOCELINA C : 89879-2 Ordered 05/22/2016 Care Plan: Tsh Ordered 05/22/2016 [...] with update 02/24/2016 Appointment: Karmen Espinal WPtel: [address] [place], [place] [phone] [place] [address] (30 min) Complex 02/24/2016 Patient Education: Patient [...] this regimen. 01/27/2016 Appointment: Karmen Espinal WPtel: [facility] [phone] (30 min) Complex 01/27/2016 Patient Education: Patient [...] use medication to assist cess ation.COP[facility] Hyperlipidemia - pt has been counseled about [...] POTENTIAL SIDE EFFECTS AND WORSENING OF SYMPTOMS. Fxvkrrkz-ezkblpij-ESMM SIMVASTATIN X 2 WEEKS AND CALL WITH [...] Care Plan: COMPLETE CBC AUTOMATED LOINC : 70411-8 Ordered 03/24/2015 Visit Plan: Diabetes Mellitus - [...] for removal. 03/07/2015 Appointment: Violeta Ash WPtel: [address] [place], [place] [phone] (15 min) Moderate 03/07/2015 Patient Education: Patient [...] Care Plan: COMPLETE CBC AUTOMATED LOINC : 59827-2 Ordered 12/23/2014 Visit Plan: BPPV - Benign [...] next appt 2014 Appointment: Karmen Espinal WPtel[phone] [place] New Patient 12/09/2014 Patient Education: [...] readings are starting to become less controlled. Aliqiy-nfaxtob-gorxf labs decrease glipizide t o 5mg twice [...] POTENTIAL SIDE EFFECTS AND WORSENING OF SYMPTOMS. Cgobzkeo-djgoqdkm-YKEX SIMVASTATIN X 2 WEEKS AND CALL WITH [...]
--- OUTSIDE RECORDS SUMMARY | 2020-03-29 08:32 | XMS REPORT | CCD ---
Author Author Dick Espinal Organization [facility] Address [address] [place] [address] Phone Care Team Providers Care Battery Stacker Name Role Phone PP Unavailable CCM Unavailable Summary Purpose Interface Exchange Insurance Providers Payer name Policy type / Coverage type Covered green party ID Effective Begin Date Effective End Date WPS Medicare Part B Medicare Part B [id number] Unknown Unknown [employer] Medicar e Part B [id number] Unknown Unkn own Family history Father Diagnosis Age At Onset Cancer Unknown Mother Diagnosis Age At Onset Cancer Unknown Social History Social History Element Codes Description Effective Dates Marital status Unknown M arried 12/09/2014 Employment Unknown Retir ed 12/09/[address]: 81405577 Currently smokes tobacco 12/09/2014 Number of years using tobacco Unknown > 50 12/09/2014 Number of cigarettes/day Unknown 30 (Pack and a half) 12/09/[address]: 041421408 Never drinks alcohol 12/09/2014 Allergies, Adverse Reactions, Alerts Allergies, Adverse Reactions, Alerts data not found Past Medical History Illness Codes Condition Status Onset Date Resolved Date Essential (primary) hypertension ICD-9: 401.9 ICD-10: I10 Active 08/22/2016 Unknown Gastro-esophageal re flux disease without esophagitis ICD-9: 530.81 ICD-10: K21.9 Active 01/26/2016 Unknown Slow transit constip ation ICD-9: 564.01 ICD-10: K59.01 Active 01/26/2016 Unknown Chronic obstructive pulmonary disease, unspecified ICD-9: 496 ICD-10: J44.9 Active 05/21/2016 Unknown Type 2 diabetes kadi itus with hyperglycemia ICD-9: 250.00 ICD-10: E11.65 Active 08/22/2016 Unknown Vitamin D deficiency , unspecified ICD-9: 268.9 ICD-10: E55.9 Active 08/22/2016 Unknown Mixed hyperlipidemia ICD-9: 272.2 ICD-10: E78.2 Active 08/22/2016 Unknown Anemia, unspecified ICD- 9: 285.9 ICD-10: D64.9 Active 05/22/2016 Unknown Encounter for immuni zation ICD-9: V04.81 [...] Condition Codes Effectiv e Dates Condition Status Essential (primary) hypertension ICD-9: 401.9 ICD-10: I10 08/22/2016 Active Gastro-esophageal re flux disease without esophagitis ICD-9: 530.81 ICD-10: K21.9 01/26/2016 Active Slow transit constip ation ICD-9: 564.01 ICD-10: K59.01 01/26/2016 Active Chronic obstructive pulmonary disease, unspecified ICD-9: 496 ICD-10: J44.9 05/21/2016 Active Type 2 diabetes kadi itus with hyperglycemia ICD-9: 250.00 ICD-10: E11.65 08/22/2016 Active Vitamin D deficiency , unspecified ICD-9: 268.9 ICD-10: E55.9 08/22/2016 Active Mixed hyperlipidemia ICD-9: 272.2 ICD-10: E78.2 08/22/2016 Active Anemia, unspecified ICD- 9: 285.9 ICD-10: D64.9 05/22/2016 Active Encounter for immuni zation ICD-9: V04.81 [...] Date Stop Date Sta tus Fill Instructions lisinopril 10 mg tablet RxNorm: 468419 Take 1 tablet by mouth daily 01/29/2017 07/27/2017 Active - First Attempt Ref: [id number] hydrocodone 5 mg-linh taminophen 325 mg tablet RxNorm: 757987 1 Tablet(s) PO Q6-8H as needed 01/25/2017 02/26/2017 Active simvastatin 40 mg ta blet RxNorm: 346394 Tablet(s) Take 1 tabl et by mouth daily at bedtime 01/03/2017 12/28/2017 Active lisinopril 10 mg tablet RxNorm: 221940 Tablet(s) Take 1 tablet by mouth daily 01/03/2017 01/28/2017 In active Protonix 40 mg table t,delayed release RxNorm: 731557 Tablet(s) Take 1 tabl et by mouth daily 12/28/2016 12/22/2017 Active hydrocodone 5 mg-linh taminophen 325 mg tablet RxNorm: 981882 1 Tablet(s) PO Q6-8H as needed 12/26/2016 01/24/2017 Inactive Xanax 0.5 mg tablet RxNorm: 716850 1 Tablet(s) PO TID 12/12/2016 03/11/2017 Active simvastatin 40 mg ta blet RxNorm: 050417 Tablet(s) Take 1 tabl et by mouth daily at bedtime 11/30/2016 01/02/2017 Inactive simvastatin 40 mg ta blet RxNorm: 917885 Take 1 tablet by mout h daily at bedtime 11/29/2016 11/29/2016 In active - First Attempt Ref: [id number] Protonix 40 mg table t,delayed release RxNorm: 837146 Take 1 tablet by mout h daily 11/27/2016 12/27/2016 In active - First Attempt Ref: [id number] hydrocodone 5 mg-linh taminophen 325 mg tablet RxNorm: 301944 1 Tablet(s) PO Q6-8H as needed 11/26/2016 12/25/2016 Inactive hydrocodone 5 mg-linh taminophen 325 mg tablet RxNorm: 457810 1 Tablet(s) PO Q8 as needed 10/24/2016 11/25/2016 Inactive Xanax 0.5 mg tablet RxNorm: 604578 1 Tablet(s) PO TID 10/09/2016 12/25/2016 Inactive hydrocodone 5 mg-linh taminophen 325 mg tablet RxNorm: 218688 1 Tablet(s) PO Q8 as needed 09/27/2016 10/23/2016 Inactive lisinopril 10 mg tablet RxNorm: 439146 Take 1 tablet by mouth daily 09/25/2016 01/02/2017 Inactive - First Attempt Ref: [id number] Vitamin D2 50,000 un it capsule RxNorm: 450875 1 Capsule(s) PO QW 09/06/2016 No Stop Date Active hydrocodone 5 mg-linh taminophen 325 mg tablet RxNorm: 402518 1 Tablet(s) PO Q8 as needed 08/28/2016 09/26/2016 Inactive Toujeo SoloStar 300 unit/mL (1.5 mL) subcutaneous insulin pen RxNorm: 7569280 25 Unit(s) SQ QHS 08/23/2016 No Stop Date Active dosage increase hydrocodone 5 mg-linh taminophen 325 mg tablet RxNorm: 950115 1 Tablet(s) PO Q8 as needed 07/26/2016 08/27/2016 Inactive Protonix 40 mg table t,delayed release RxNorm: 453522 Take 1 tablet by mout h daily 07/24/2016 11/26/2016 In active - First Attempt Ref: [id number] hydrocodone 5 mg-linh taminophen 325 mg tablet RxNorm: 116674 1 Tablet(s) PO Q8 as needed 06/19/2016 07/21/2016 Inactive Toujeo SoloStar 300 unit/mL (1.5 mL) subcutaneous insulin pen RxNorm: 2132063 32 Unit(s) SQ QHS 05/30/2016 08/22/2016 Inactive dosage increase hydrocodone 5 mg-linh taminophen 325 mg tablet RxNorm: 314000 1 Tablet(s) PO Q8 as needed 05/22/2016 06/18/2016 Inactive hydrocodone 5 mg-linh taminophen 325 mg tablet RxNorm: 497130 1 Tablet(s) PO Q8 as needed 04/18/2016 05/17/2016 Inactive Protonix 40 mg table t,delayed release RxNorm: 418105 Take 1 tablet by mout h daily 04/05/2016 07/03/2016 In active - Ref: [id number] metformin 500 mg tablet RxNorm: 483683 Take 1 tablet by mouth daily 04/04/2016 07/02/2016 Inactive - Ref: [id number] Xanax 0.5 mg tablet RxNorm: 796869 1 Tablet(s) PO TID 03/30/2016 09/25/2016 Inactive Xanax 0.5 mg tablet RxNorm: 812948 1 Tablet(s) PO TID 03/23/2016 12/25/2016 Inactive hydrocodone 5 mg-linh taminophen 325 mg tablet RxNorm: 513311 1 Tablet(s) PO Q8 as needed 03/06/2016 04/04/2016 Inactive Cipro 500 mg tablet RxNorm: 741672 1 Tablet(s) PO BID 02/24/2016 03/04/2016 Inactive Miralax 17 gram oral powder packet RxNorm: 874362 1 packet PO every oth er day 01/27/2016 No Stop Date Active hydrocodone 5 mg-linh taminophen 325 mg tablet RxNorm: 773551 1 Tablet(s) PO Q8 as needed 01/27/2016 02/25/2016 Inactive lisinopril 10 mg tablet RxNorm: 788508 1 Tablet(s) PO daily 01/12/2016 09/24/2016 Inactive simvastatin 40 mg ta blet RxNorm: 377218 1 Tablet(s) PO QHS 01/12/2016 11/28/2016 Inactive simvastatin 40 mg ta blet RxNorm: 167393 1 Tablet(s) PO QHS 01/11/2016 01/11/2016 Inactive lisinopril 10 mg tablet RxNorm: 117052 1 Tablet(s) PO daily 01/06/2016 01/11/2016 Inactive simvastatin 40 mg ta blet RxNorm: 733293 1 Tablet(s) PO daily 12/28/2015 01/10/2016 Inactive hydrocodone 5 mg-linh taminophen 325 mg tablet RxNorm: 450605 1 Tablet(s) PO Q8 as needed 12/27/2015 01/26/2016 Inactive Xanax 0.5 mg tablet RxNorm: 095978 1 Tablet(s) PO TID 11/30/2015 03/29/2016 Inactive meclizine 25 mg tablet RxNorm: 908696 1 Tablet(s) PO Q6 PRN TAKE ONE TABLET BY MOUTH EVERY 6 HOURS NEEDED 11/25/2015 02/22/2016 Inactive Toujeo SoloStar 300 unit/mL (1.5 mL) subcutaneous insulin pen RxNorm: 7451229 30 Unit(s) SQ QHS 11/25/2015 05/29/2016 Inactive dosage increase omeprazole 20 mg cap jacquelyn,delayed release RxNorm: 273868 1 Capsule(s) PO daily 10/06/2015 01/26/2016 In active Toujeo SoloStar 300 unit/mL (1.5 mL) subcutaneous insulin pen RxNorm: 5183824 35 Unit(s) SQ QHS 08/02/2015 11/24/2015 Inactive dosage increase Vitamin D2 50,000 un it capsule RxNorm: 433601 1 Capsule(s) PO QW 08/02/2015 09/05/2016 Inactive hydrocodone 5 mg-linh taminophen 325 mg tablet RxNorm: 400142 1 Tablet(s) PO Q8 as needed 07/11/2015 12/26/2015 Inactive Xanax 0.5 mg tablet RxNorm: 669985 1 Tablet(s) PO TID 06/30/2015 06/29/2015 Inactive Xanax 0.5 mg tablet RxNorm: 822618 1 Tablet(s) PO TID 06/30/2015 12/25/2015 Inactive hydrocodone 5 mg-linh taminophen 325 mg tablet RxNorm: 579688 1 Tablet(s) PO Q8 as needed 05/06/2015 07/10/2015 Inactive Symbicort 160 mcg-4. 5 mcg/actuation HFA aerosol inhaler RxNorm: 2840293 INH 04/25/2015 No Stop Date Active Levemir FlexTouch 10 0 unit/mL (3 mL) subcutaneous insulin pen RxNorm: 328957 30 Unit(s) SQ QHS 04/25/2015 11/24/2015 Inactive prednisone 20 mg tablet RxNorm: 591832 1 Tablet(s) PO BID 04/25/2015 04/29/2015 Inactive metformin 500 mg tablet RxNorm: 165062 1 Tablet(s) PO daily 04/25/2015 04/03/2016 Inactive amoxicillin 500 mg c apsule RxNorm: 677144 1 Capsule(s) PO TID 04/14/2015 04/13/2015 Inactive amoxicillin 500 mg c apsule RxNorm: 837180 1 Capsule(s) PO TID a nd recommend probiotic tid (otc) 04/14/2015 04/20/2015 Inactive Kenalog 40 mg/mL bartolome pension for injection RxNorm: 9359822 Milliliter(s) Inj 04/12/2015 04/12/2015 In active hydrocodone 5 mg-linh taminophen 325 mg tablet RxNorm: 204859 1 Tablet(s) PO Q8 as needed 03/30/2015 05/05/2015 Inactive Lantus 100 unit/mL s ubcutaneous solution RxNorm: 938593 25 Unit(s) SQ QPM 03/24/2015 04/25/2015 In active meclizine 25 mg tablet RxNorm: 549935 Tablet(s) TAKE ONE TABLET BY MOUTH EVERY 6 HOURS NEEDED 03/08/2015 04/06/2015 Inactive meclizine 25 mg tablet RxNorm: 567109 TAKE ONE TABLET BY MOUTH EVERY 6 HOURS A S NEEDED 02/25/2015 03/03/2015 Inactive Lantus 100 unit/mL s ubcutaneous solution RxNorm: 969252 20 Unit(s) SQ QPM 02/23/2015 03/23/2015 In active Lantus 100 unit/mL s ubcutaneous solution RxNorm: 007571 25 Unit(s) SQ QPM 02/23/2015 02/22/2015 In active hydrocodone 5 mg-linh taminophen 325 mg tablet RxNorm: 609768 1 Tablet(s) PO Q8 as needed 02/17/2015 03/29/2015 Inactive Xanax 0.5 mg tablet RxNorm: 442882 1 Tablet(s) PO TID 02/03/2015 06/29/2015 Inactive Lantus 100 unit/mL s ubcutaneous solution RxNorm: 688518 20 Unit(s) SQ QPM 12/29/2014 02/22/2015 In active Phenergan 12.5 mg re ctal suppository RxNorm: 073670 1 Suppository RTL Q6 PRN 12/23/2014 No Stop Date Active nausea Kenalog 40 mg/mL bartolome pension for injection RxNorm: 6966907 Milliliter(s) Inj 12/23/2014 12/23/2014 In active prednisone 20 mg tablet RxNorm: 986623 2 Tablet(s) PO daily 12/13/2014 12/17/2014 Inactive prednisone 20 mg tablet RxNorm: 459758 2 Tablet(s) PO daily 12/13/2014 12/12/2014 Inactive meclizine 25 mg tablet RxNorm: 607852 1 Tablet(s) PO Q6 PRN 12/09/2014 02/24/2015 Inactive hydrocodone 5 mg-linh taminophen 325 mg tablet RxNorm: 072808 1 Tablet(s) PO Q8 as needed 12/09/2014 02/16/2015 Inactive Vitamin B-12 1,000 m cg/mL oral drops RxNorm: 1781409 1 Milliliter(s) PO d aily No Start Date Active Alphagan P 0.1 % eye drops RxNorm: 464226 1 Drop(s) OPH BID No Start Date Active aspirin 325 mg table t,delayed release RxNorm: 937087 1 Tablet(s) PO daily No Start Date Active Tricor 145 mg tablet RxNorm: 362386 1 Tablet(s) PO daily No Start Date Active vitamin D81-ukeuoer B1 oral liquid RxNorm: 1,000 Microgram(s) PO daily No Start Date Active atenolol 50 mg tablet RxNorm: 362049 1 Tablet(s) PO daily No Start Date Active Protonix 40 mg table t,delayed release RxNorm: 508545 1 Tablet(s) PO daily No Start Date 04/04/2016 Inactive glipizide 10 mg tablet RxNorm: 955838 1 Tablet(s) PO BID No Start Date 03/22/2015 Inactive Lantus 100 unit/mL s ubcutaneous solution RxNorm: 321519 15 Unit(s) SQ QPM No Start Date 12/28/2014 Inactive lisinopril 10 mg tablet RxNorm: 287243 1 Tablet(s) PO daily No Start Date 01/05/2016 Inactive Vitamin D2 50,000 un it capsule RxNorm: 028765 1 Capsule(s) PO QW No Start Date 08/01/2015 Inactive Toujeo SoloStar 300 unit/mL (1.5 mL) subcutaneous insulin pen RxNorm: 3824716 30 Unit(s) SQ QHS No Start Date 08/01/2015 Inactive simvastatin 40 mg ta blet RxNorm: 281584 1 Tablet(s) PO daily No Start Date 12/27/2015 Inactive hydrocodone 5 mg-linh taminophen 325 mg tablet RxNorm: 772442 1 Tablet(s) PO Q8 as needed No Start Date 12/08/2014 Inactive metformin 500 mg tablet RxNorm: 812022 1 Tablet(s) PO daily No Start Date 04/24/2015 Inactive omeprazole 20 mg cap jacquelyn,delayed release RxNorm: 347422 1 Capsule(s) PO daily No Start Date 10/05/2015 Inactive Flomax 0.4 mg capsule RxNorm: 186624 1 Capsule(s) PO daily No Start Date 03/23/2015 Inactive Medication Administered Medication Codes Instruc tions Start Date Status Kenalog 40 mg/mL suspension for injection RxNorm: 5810442 Milliliter 04/12/2015 No longer Active Kenalog 40 mg/mL suspension for injection RxNorm: 7084269 Milliliter 12/23/2014 No longer Active Immunizations Vaccine Codes Date Status Influenza CVX: 141 05/22 completed Assessments Condition Codes Effectiv e Dates Slow transit constipation ICD-10: K5 9.01 ICD-9: 564.01 01/21/2017 Essential (primary) hypertension ICD -10: I10 ICD-9: 401.9 01/21/2017 Gastro-esophageal reflux disease without esophagitis ICD-10: K21.9 ICD-9: 530.81 01/21/2017 Chronic obstructive pulmonary disease, unspecified ICD-10: J44.9 ICD-9: 496 12/20/2016 Type 2 diabetes mellitus with hyperglycemia ICD-10: E11.65 ICD-9: 250.00 12/20/2016 Vitamin D deficiency, unspecified IC D-10: E55.9 ICD-9: 268.9 12/20/2016 Mixed hyperlipidemia ICD-10: E78.2 ICD-9: 272.2 08/23/2016 Anemia, unspecified ICD-10: D64.9 ICD-9: 285.9 05/23/2016 Encounter for immunization ICD-10: Z 23 ICD-9: [...] Visit Reason For Visit Effective Dates Notes constipation 01/21/2017 ongoing diabetes mellitus 12/20/2016 diabetes [...] Code Result Date Vitamin D 25 Oh [id number] VITAMIN D, 25 HYDROXY 44.40 ng/mL 12/21/2016 Comp Metabolic Kqb143 NA 131 mEq/L 12/21/2016 Comp Metabolic Plc530 K 4.2 mEq/L 12/21/2016 Comp Metabolic Hel728 CL 97 mEq/L 12/21/2016 Comp Metabolic Kus751 CO2 27.0 mEq/L 12/21/2016 Comp Metabolic Grg310 AN ION GAP 11 12/21/2016 Comp Metabolic Crj404 GL UCOSE 266 mg/dL 12/21/2016 Comp Metabolic Gku812 Cr eat 0.9 mg/dL 12/21/2016 Comp Metabolic Pmz302 eG FR 88 ml/min/1.73m2 12/21 Comp Metabolic Aey214 BUN 12 mg/dL 12/21/2016 Comp Metabolic Qzr616 B/ C Ratio 13.6 Ratio 12/21/2016 Comp Metabolic Jpq237 CA LCIUM 8.6 mg/dL 12/21/2016 Comp Metabolic Ptp196 AL K PHOS 69 U/L 12/21/2016 Comp Metabolic Sen788 T(SGOT) 15 U/L 12/21/2016 Comp Metabolic Iaw014 AL T(SGPT) 14 U/L 12/21/2016 Comp Metabolic Gjt038 BI LI T 0.3 mg/dL 12/21/2016 Comp Metabolic Ofk287 AL BUMIN 3.7 g/dL 12/21/2016 Comp Metabolic Mjf085 TP RO 5.9 g/dL 12/21/2016 Comp Metabolic Xft570 GL OB 2.2 g/dL 12/21/2016 Comp Metabolic Qhf426 A/ G Ratio 1.7 Ratio 12/21/2016 Comp Metabolic Fby377 Os mo 272 mOsmo 12/21/2016 Cbc With [...] 34.6 pg 12/21/2016 Cbc With Differential Ord2 [place]% 6.9 % 12/21/2016 Cbc With Differential Ord2 [...] 2.05 K/ul 12/21/2016 Cbc With Differential Ord2 [place] ABS# 0.4 K/ul 12/21/2016 Cbc With Differential Ord2 Eos ABS# 0.2 K/ul 12/21/2016 Cbc With Differential Ord2 Baso ABS# 0.0 K/ul 12/21/2016 Comp Metabolic Gvt910 NA 138 mEq/L 09/03/2016 Comp Metabolic Yid686 K 4.5 mEq/L 09/03/2016 Comp Metabolic Zdq165 CL 102 mEq/L 09/03/2016 Comp Metabolic Sol511 CO2 30.0 mEq/L 09/03/2016 Comp Metabolic Hyk496 AN ION GAP 11 09/03/2016 Comp Metabolic Hdw524 GL UCOSE 113 mg/dL 09/03/2016 Comp Metabolic Ckm947 Cr eat 1.0 mg/dL 09/03/2016 Comp Metabolic Jvr795 eG FR 81 ml/min/1.73m2 09/03 Comp Metabolic Rfz250 BUN 10 mg/dL 09/03/2016 Comp Metabolic Mbe770 B/ C Ratio 10.5 Ratio 09/03/2016 Comp Metabolic Ofd476 CA LCIUM 9.1 mg/dL 09/03/2016 Comp Metabolic Lvt272 AL K PHOS 71 U/L 09/03/2016 Comp Metabolic Biq136 T(SGOT) 18 U/L 09/03/2016 Comp Metabolic Hfh968 AL T(SGPT) 17 U/L 09/03/2016 Comp Metabolic Omo114 BI LI T 0.6 mg/dL 09/03/2016 Comp Metabolic Mdy526 AL BUMIN 4.1 g/dL 09/03/2016 Comp Metabolic Lsn271 TP RO 6.4 g/dL 09/03/2016 Comp Metabolic Riw942 GL OB 2.3 g/dL 09/03/2016 Comp Metabolic Lot907 A/ G Ratio 1.8 Ratio 09/03/2016 Comp Metabolic Zwn379 Os mo 276 mOsmo 09/03/2016 Vitamin D 25 Oh Qfw4457 VITAMIN D, 25 HYDROXY 28.23 ng/mL 09/03/2016 Tsh Ord6 hTSH II 4.12 uIU/mL 09/03/2016 Cbc With Differential Ord2 WBC 8.06 K/ul 09/03/2016 Cbc With Differential Ord2 RBC 3.66 M/ul 09/03/2016 Cbc With Differential Ord2 HGB 12.6 g/dl 09/03/2016 Cbc With Differential Ord2 Neut% 44.6 % 09/03/2016 Cbc With Differential Ord2 HCT 37.3 % 09/03/2016 Cbc With Differential Ord2 MCV 101.9 fl 09/03/2016 Cbc With Differential Ord2 Lymph% 41.4 % 09/03/2016 Cbc With Differential Ord2 MCH 34.4 pg 09/03/2016 Cbc With Differential Ord2 [place]% 8.9 % 09/03/2016 Cbc With Differential Ord2 [...] 3.34 K/ul 09/03/2016 Cbc With Differential Ord2 [place] ABS# 0.7 K/ul 09/03/2016 Cbc With Differential Ord2 Eos ABS# 0.4 K/ul 09/03/2016 Cbc With Differential Ord2 Baso ABS# 0.0 K/ul 09/03/2016 Lipid Ord30 CHOL 120 mg/dL 09/03/2016 Lipid Ord30 HDL 33.0 mg/dl 09/03/2016 Lipid Ord30 TRIG 161 mg/dL 09/03/2016 Lipid Ord30 LDL 55 mg/dL 09/03/2016 Lipid Ord30 C/HDL 3.6 Ratio 09/03/2016 %Hba1C Sus423 % HbA1c 87649-6 7.5 % 09/03/2016 %Hba1C Bvj819 Gluc Ave 169 mg/dL 09/03/2016 Tsh Ord6 hTSH II 1.50 uIU/mL 05/23/2016 %Hba1C Rdz015 % HbA1c 22730-4 7.6 % 05/23/2016 %Hba1C Aic601 Gluc Ave 171 mg/dL 05/23/2016 Comp Metabolic Flr706 NA 135 mEq/L 05/23/2016 Comp Metabolic Gqd509 K 4.4 mEq/L 05/23/2016 Comp Metabolic Pfr729 CL 99 mEq/L 05/23/2016 Comp Metabolic Ots740 CO2 28.0 mEq/L 05/23/2016 Comp Metabolic Wor983 AN ION GAP 12 05/23/2016 Comp Metabolic Yoo353 GL UCOSE 257 mg/dL 05/23/2016 Comp Metabolic Cox459 Cr eat 0.8 mg/dL 05/23/2016 Comp Metabolic Cpw938 eG FR 95 ml/min/1.73m2 05/23 Comp Metabolic Nul970 BUN 11 mg/dL 05/23/2016 Comp Metabolic Bqc355 B/ C Ratio 13.3 Ratio 05/23/2016 Comp Metabolic Vmo833 CA LCIUM 9.0 mg/dL 05/23/2016 Comp Metabolic Ikk882 AL K PHOS 82 U/L 05/23/2016 Comp Metabolic Ddq709 T(SGOT) 21 U/L 05/23/2016 Comp Metabolic Xor631 AL T(SGPT) 20 U/L 05/23/2016 Comp Metabolic Qba707 BI LI T 0.3 mg/dL 05/23/2016 Comp Metabolic Bty329 AL BUMIN 4.0 g/dL 05/23/2016 Comp Metabolic Abr206 TP RO 6.4 g/dL 05/23/2016 Comp Metabolic Dqa503 GL OB 2.4 g/dL 05/23/2016 Comp Metabolic Lrg043 A/ G Ratio 1.6 Ratio 05/23/2016 Comp Metabolic Mma031 Os mo 278 mOsmo 05/23/2016 Cbc With [...] 34.5 pg 05/23/2016 Cbc With Differential Ord2 [place]% 6.1 % 05/23/2016 Cbc With Differential Ord2 [...] 2.38 K/ul 05/23/2016 Cbc With Differential Ord2 [place] ABS# 0.4 K/ul 05/23/2016 Cbc With Differential Ord2 Eos ABS# 0.2 K/ul 05/23/2016 Cbc With Differential Ord2 Baso ABS# 0.0 K/ul 05/23/2016 B12 Nmb805 B12 597.00 pg/ml 05/23/2016 Metabolic Ord15 NA [...] 0.92 uIU/mL 07/29/2015 Vitamin D 25 Oh Jow2010 VITAMIN D, 25 HYDROXY 26.93 ng/mL 07/29/2015 %Hba1C Api462 % HbA1c 74374-5 8.8 % 07/29/2015 %Hba1C Lcf477 Gluc Ave 206 mg/dL 07/29/2015 Cbc With [...] Ord2 RDW 14.9 % 07/29/2015 Comp Metabolic Knq419 NA 138 mEq/L 07/29/2015 Comp Metabolic Svm353 K 4.4 mEq/L 07/29/2015 Comp Metabolic Pos638 CL 102 mEq/L 07/29/2015 Comp Metabolic Dbe053 CO2 28.0 mEq/L 07/29/2015 Comp Metabolic Lty517 AN ION GAP 12 07/29/2015 Comp Metabolic Adu987 GL UCOSE 261 mg/dL 07/29/2015 Comp Metabolic Sxl864 Cr eat 1.0 mg/dL 07/29/2015 Comp Metabolic Heo132 eG FR 77 ml/min/1.73m2 07/29 Comp Metabolic Cyg997 BUN 13 mg/dL 07/29/2015 Comp Metabolic Wua140 B/ C Ratio 13.0 Ratio 07/29/2015 Comp Metabolic Fwj015 CA LCIUM 9.1 mg/dL 07/29/2015 Comp Metabolic Fzm699 AL K PHOS 64 U/L 07/29/2015 Comp Metabolic Loa539 T(SGOT) 20 U/L 07/29/2015 Comp Metabolic Mff053 AL T(SGPT) 22 U/L 07/29/2015 Comp Metabolic Ktz122 BI LI T 0.4 mg/dL 07/29/2015 Comp Metabolic Khr833 AL BUMIN 4.0 g/dL 07/29/2015 Comp Metabolic Bwn869 TP RO 6.1 g/dL 07/29/2015 Comp Metabolic Wup286 GL OB 2.1 g/dL 07/29/2015 Comp Metabolic Url671 A/ G Ratio 1.9 Ratio 07/29/2015 Comp Metabolic Cto736 Os mo 285 mOsmo 07/29/2015 Cbc With [...] Ord2 RDW 13.1 % 05/06/2015 Comp Metabolic Acq831 NA 134 mEq/L 05/06/2015 Comp Metabolic Ylo210 K 4.4 mEq/L 05/06/2015 Comp Metabolic Zpq726 CL 98 mEq/L 05/06/2015 Comp Metabolic Hck744 CO2 29.0 mEq/L 05/06/2015 Comp Metabolic Cyt350 AN ION GAP 11 05/06/2015 Comp Metabolic Xyn128 GL UCOSE 321 mg/dL 05/06/2015 Comp Metabolic Jql652 Cr eat 1.0 mg/dL 05/06/2015 Comp Metabolic Dfv942 eG FR 78 ml/min/1.73m2 05/06 Comp Metabolic Dbl701 BUN 20 mg/dL 05/06/2015 Comp Metabolic Agu016 B/ C Ratio 20.4 Ratio 05/06/2015 Comp Metabolic Uvr308 CA LCIUM 9.5 mg/dL 05/06/2015 Comp Metabolic Giu680 AL K PHOS 62 U/L 05/06/2015 Comp Metabolic Uuc886 T(SGOT) 21 U/L 05/06/2015 Comp Metabolic Vuq650 AL T(SGPT) 37 U/L 05/06/2015 Comp Metabolic Ipn959 BI LI T 0.4 mg/dL 05/06/2015 Comp Metabolic Cqo154 AL BUMIN 3.8 g/dL 05/06/2015 Comp Metabolic Phl170 TP RO 6.1 g/dL 05/06/2015 Comp Metabolic Tpf703 GL OB 2.3 g/dL 05/06/2015 Comp Metabolic Erb523 A/ G Ratio 1.7 Ratio 05/06/2015 Comp Metabolic Rne012 Os mo 283 mOsmo 05/06/2015 Tsh Ord6 hTSH II 1.65 uIU/mL 02/18/2015 B12 Bhs280 B12 605.00 pg/ml 02/18/2015 %Hba1C Mjr422 % HbA1c 64575-3 8.3 % 02/18/2015 %Hba1C Cqs930 Gluc Ave 192 mg/dL 02/18/2015 Cbc With [...] Ord2 RDW 13.9 % 02/17/2015 Comp Metabolic Kls937 NA 137 mEq/L 02/17/2015 Comp Metabolic Brn090 K 4.4 mEq/L 02/17/2015 Comp Metabolic Yok141 CL 100 mEq/L 02/17/2015 Comp Metabolic Qhi151 CO2 31.0 mEq/L 02/17/2015 Comp Metabolic Cfs834 AN ION GAP 10 02/17/2015 Comp Metabolic Rej932 GL UCOSE 307 mg/dL 02/17/2015 Comp Metabolic Hto823 Cr eat 1.0 mg/dL 02/17/2015 Comp Metabolic Vou550 eG FR 74 ml/min/1.73m2 02/17 Comp Metabolic Zle114 BUN 22 mg/dL 02/17/2015 Comp Metabolic Dki312 B/ C Ratio 21.4 Ratio 02/17/2015 Comp Metabolic Gyt364 CA LCIUM 9.5 mg/dL 02/17/2015 Comp Metabolic Bfb044 AL K PHOS 78 U/L 02/17/2015 Comp Metabolic Uav568 T(SGOT) 18 U/L 02/17/2015 Comp Metabolic Idd612 AL T(SGPT) 32 U/L 02/17/2015 Comp Metabolic Bpi329 BI LI T 0.5 mg/dL 02/17/2015 Comp Metabolic Hvs122 AL BUMIN 4.3 g/dL 02/17/2015 Comp Metabolic Kvf159 TP RO 6.7 g/dL 02/17/2015 Comp Metabolic Qns745 GL OB 2.4 g/dL 02/17/2015 Comp Metabolic Qnv986 A/ G Ratio 1.8 Ratio 02/17/2015 Comp Metabolic Nom984 Os mo 289 mOsmo 02/17/2015 Review of Systems System Result Effective Dates Constitutional recent illness 01/21/2017 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 [...] inspection of skin Location: face 03/07/2015 on christian, cheeks,actinic keratosis with irritation on left cheek - left christian - croptherapy on these two lesions - [...] Date ADMIN INFLUENZA VIRU S VAC CPT-4: Z8299Hmjshmw 05/22/2016 FLU VACC 4 TELLY 3 YRS PLUS IM Formatting Model/CDA Sections, Assigned to/Angela Clemons SNOMED CT: 21387121 CPT-4: 38519Zixclfi 05/22/2016 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 3-[address]: 758497022 CPT-4: G8938Nvufxkn 11/25/2015 URINALYSIS NONAUTO W /O SCOPE CPT-4: 92274Hwaxxph 05/09/2015 TRIAMCINOLONE ACET I [place] NOS CPT-4: I1305Nzzglyz 04/12/2015 DESTRUCT PREMALG LES ION CPT-4: 06513Msjyqrr 03/07/2015 DESTRUCT PREMALG LES 2-14 CPT-4: 45779Dvigyng 03/07/2015 REMOVE IMPACTED EAR WAX UNI CPT-4: 67224Eucosss 12/31/2014 THER/PROPH/DIAG INJ SC/IM CPT-4: 05243Ccqxgrh 12/23/2014 TRIAMCINOLONE ACET I [place] NOS CPT-4: [id number] 12/23/2014 Vital Signs Date Vital 01/21/2017 Blood Pressure 1: 160/68 Code: 8480-6 BMI: 21.3 Code: 69563-4 Heart Rate 1: 62 bpm Height: 5'11" SpO2: 96% Weight: 153 lbs 12/20/2016 Blood Pressure 1: 124/66 Code: 8480-6 BMI: 21.5 Code: 47341-0 Height: 5'11" Weight: 154 lbs 08/23/2016 Blood Pressure 1: 142/52 Code: 8480-6 BMI: 21.2 Code: 25944-4 Heart Rate 1: 54 bpm Height: 5'11" SpO2: 96% Weight: 152 lbs 05/22/2016 Blood Pressure 1: 130/76 Code: 8480-6 BMI: 21.5 Code: 87759-0 Heart Rate 1: 78 bpm Height: 5'11" SpO2: 92% Weight: 154 lbs 02/24/2016 Blood Pressure 1: 128/80 Code: 8480-6 BMI: 21.2 Code: 01914-9 Heart Rate 1: 74 bpm Height: 5'11" SpO2: 96% Weight: 152 lbs 01/27/2016 Blood Pressure 1: 144/60 Code: 8480-6 BMI: 21.2 Code: 54149-0 Heart Rate 1: 74 bpm Height: 5'11" SpO2: 97% Weight: 152 lbs 11/25/2015 Blood Pressure 1: 110/52 Code: 8480-6 BMI: 21.9 Code: 51001-1 Heart Rate 1: 65 bpm Height: 5'11" SpO2: 92% Weight: 157 lbs 07/28/2015 Blood Pressure 1: 138/62 Code: 8480-6 BMI: 21.8 Code: 32405-1 Heart Rate 1: 63 bpm Height: 5'11" SpO2: 91% Weight: 156 lbs 05/26/2015 Blood Pressure 1: 120/58 Code: 8480-6 BMI: 21.5 Code: 65802-4 Heart Rate 1: 99 bpm Height: 5'11" SpO2: 96% Weight: 154 lbs 05/06/2015 Blood Pressure 1: 120/58 Code: 8480-6 BMI: 21.2 Code: 26000-0 Heart Rate 1: 66 bpm Height: 5'11" SpO2: 96% Weight: 152 lbs 04/25/2015 Blood Pressure 1: 136/62 Code: 8480-6 BMI: 21.2 Code: 53635-2 Heart Rate 1: 63 bpm Height: 5'11" SpO2: 97% Weight: 152 lbs 04/12/2015 Blood Pressure 1: 160/58 Code: 8480-6 BMI: 21.6 Code: 96703-3 Heart Rate 1: 62 bpm Height: 5'11" Weight: 155 lbs 03/24/2015 Blood Pressure 1: 138/68 Code: 8480-6 BMI: 22.0 Code: 33786-0 Heart Rate 1: 65 bpm Height: 5'11" SpO2: 96% Weight: 158 lbs 03/07/2015 Blood Pressure 1: 116/52 Code: 8480-6 BMI: 22.2 Code: 35922-0 Heart Rate 1: 64 bpm Height: 5'11" SpO2: 97% Weight: 159 lbs 02/17/2015 Blood Pressure 1: 148/58 Code: 8480-6 BMI: 21.3 Code: 88551-6 Heart Rate 1: 63 bpm Height: 5'11" SpO2: 97% Weight: 153 lbs 12/31/2014 Blood Pressure 1: 100/60 Code: 8480-6 BMI: 21.8 Code: 60629-7 Heart Rate 1: 68 bpm Height: 5'11" Weight: 156 lbs 12/23/2014 Blood Pressure 1: 148/64 Code: 8480-6 BMI: 21.9 Code: 21185-1 Heart Rate 1: 64 bpm Height: 5'11" Weight: 157 lbs 12/09/2014 Blood Pressure 1: 152/62 Code: 8480-6 Heart Rate 1: 58 bpm SpO2: 98% Weight: 159 lbs Functional Status No Functional Status data History of Present Illness Symptom Name Status Resu lt Effective Date Notes constipation Quality int ermittent 01/21/2017 None constipation [...] Encounters Encounter Performer Loca tion Codes Date ([id number]) [id number] EST. P ATIENT, LEVEL IV Diagnosis: Slow transit constipation[ICD10: K59.01] Diagnosis: Gastro-esophageal reflux disease without esophagitis[ICD10: K21.9] Diagnosis: Essential (primary) hypertension[ICD10: I10] Karmen Ash MD, [facility] CPT-4: 22852 01/21/2017 [id number]) 08270 EST. P ATIENT, LEVEL IV Diagnosis: Type 2 diabetes mellitus with hyperglycemia[ICD10: E11.65] Diagnosis: Vitamin D deficiency, unspecified[ICD10: E55.9] Diagnosis: Essential (primary) hypertension[ICD10: I10] Diagnosis: Chronic obstructive pulmonary disease, unspecified[ICD10: J44.9] Karmen Ash MD, [facility] CPT-4: 89031 12/20/2016 [id number]) 12545 EST. P ATIENT, LEVEL IV Diagnosis: Type 2 diabetes mellitus with hyperglycemia[ICD10: E11.65] Diagnosis: Essential (primary) hypertension[ICD10: I10] Diagnosis: Mixed hyperlipidemia[ICD10: E78.2] Diagnosis: Vitamin D deficiency, unspecified[ICD10: E55.9] Karmen Ash MD, [facility] CPT-4: 35504 08/23/2016 [id number]) 47843 EST. P ATIENT, LEVEL IV Diagnosis: Type 2 diabetes mellitus with hyperglycemia[ICD10: E11.65] Diagnosis: Essential (primary) hypertension[ICD10: I10] Diagnosis: Chronic obstructive pulmonary disease, unspecified[ICD10: J44.9] Karmen Ash MD, [facility] CPT-4: 40269 05/22/2016 ([id number]) 94972 EST. P ATIENT, LEVEL III Diagnosis: Dysuria[ICD10: R30.0] Diagnosis: Essential (primary) hypertension[ICD10: I10] Karmen Ash MD, [facility] CPT-4: 24617 02/24/2016 ([id number]) 66346 EST. P ATIENT, LEVEL IV Diagnosis: Gastro-esophageal reflux disease without esophagitis[ICD10: K21.9] Diagnosis: Slow transit constipation[ICD10: K59.01] Diagnosis: Type 2 diabetes mellitus with hyperglycemia[ICD10: E11.65] Karmen Ash MD, [facility] CPT-4: 53009 01/27/2016 ([id number]) 10503 EST. P ATIENT, LEVEL IV Diagnosis: Essential (primary) hypertension[ICD10: I10] Diagnosis: Type 2 diabetes mellitus with hyperglycemia[ICD10: E11.65] Diagnosis: Vitamin D deficiency, unspecified[ICD10: E55.9] Diagnosis: Chronic obstructive pulmonary disease, unspecified[ICD10: J44.9] Diagnosis: Mixed hyperlipidemia[ICD10: E78.2] Diagnosis: Tobacco use[ICD10: Z72.0] Karmen Ash MD, [facility] CPT- 4: 71348 11/25/2015 ([id number]) 96429 EST. P ATIENT, LEVEL IV Diagnosis: Type 2 diabetes mellitus with hyperglycemia[ICD10: E11.65] Diagnosis: Essential (primary) hypertension[ICD10: I10] Diagnosis: Vitamin D deficiency, unspecified[ICD10: E55.9] Karmen Ash MD, [facility] CPT-4: 85947 07/28/2015 ([id number]) 75058 EST. P ATIENT, LEVEL III Diagnosis: Type 2 diabetes mellitus with hyperglycemia[ICD10: E11.65] Diagnosis: Essential (primary) hypertension[ICD10: I10] Violeta Ash MD, [facility] CPT-4: 14449 05/26/2015 ([id number]) 12359 EST. P ATIENT, LEVEL III Diagnosis: DIABETES TYPE II[ICD9: 250.00] Diagnosis: COPD (chronic obstructive pulmonary disease)[ICD9: 496] Diagnosis: ESSENTIAL HYPERTENSION[ICD9: 401.9] Diagnosis: Cough[ICD9: 786.2] Violeta Ash MD, [facility] CPT-4: 22886 05/06/2015 ([id number]) 08082 EST. P ATIENT, LEVEL III Diagnosis: COPD (chronic obstructive pulmonary disease)[ICD9: 496] Diagnosis: DIABETES TYPE II[ICD9: 250.00] Diagnosis: Muscle ache[ICD9: 729.1] Karmen Ash MD, [facility] CPT- 4: 30069 04/25/2015 ([id number]) 94155 EST. P ATIENT, LEVEL III Diagnosis: ACTINIC KERATOSIS[ICD9: 702.0] Diagnosis: COPD (chronic obstructive pulmonary disease)[ICD9: 496] Diagnosis: DIABETES TYPE II[ICD9: 250.00] Diagnosis: ACUTE URI[ICD9: 465.9] Violeta Ash MD, [facility] CPT-4: 47494 04/12/2015 ([id number]) 64638 EST. P ATIENT, LEVEL III Diagnosis: DIABETES TYPE II[ICD9: 250.00] Violeta Ash MD, [facility] CPT-4: 51416 03/24/2015 ([id number]) 93510 EST. P ATIENT, LEVEL IV Diagnosis: DIABETES TYPE II[ICD9: 250.00] Diagnosis: Hypoglycemia[ICD9: 251.2] Diagnosis: Skin texture changes[ICD9: 782.8] Violeta Ash MD, [facility] CPT-4: 54645 03/07/2015 ([id number]) 07259 EST. P ATIENT, LEVEL IV Diagnosis: COPD (chronic obstructive pulmonary disease)[ICD9: 496] Diagnosis: Fatigue[ICD9: 780.79] Diagnosis: Insulin dependent diabetes mellitus[ICD9: 250.00] Diagnosis: Unsteady gait[ICD9: 781.2] Maame Ash MD, [facility] CPT-4: 40537 02/17/2015 ([id number]) 33168 EST. [facility]: BPPV (benign paroxysmal positional vertigo)[ICD9: 386.11] Diagnosis: Impacted cerumen[ICD9: 380.4] Diagnosis: ESSENTIAL HYPERTENSION[ICD9: 401.9] Diagnosis: Insulin dependent diabetes mellitus[ICD9: 250.00] [facility] CPT-4: 88578 12/23/2014 ([id number]) OFFICE [facility], [facility] - LEVEL 4 Diagnosis: Insulin dependent diabetes mellitus[ICD9: 250.00] Diagnosis: BPPV (benign paroxysmal positional vertigo)[ICD9: 386.11] Diagnosis: COPD (chronic obstructive pulmonary disease)[ICD9: 496] Diagnosis: Tobacco abuse[ICD9: 305.1] Diagnosis: Osteoarthritis[ICD9: 715.90] Karmen Ash MD, [facility] CPT- 4: 79920 12/09/2014 Plan of Care Planned Activity Notes C odes Status Date Visit Plan: Esophageal Reflux - the gloria [...] 1 month 01/21/2017 Appointment: Karmen Espinal WPtel: [address] [place], [place] [phone] (30 min) Complex 01/21/2017 Patient Education: Patient Medication Summary Completed 01/21/2017 Patient Education: Smoking and Tobacco Addiction Completed 01/21/2017 Patient Education: Hypertension Completed 01/21/2017 Care Plan: Referral Order SNOMED-CT : [id number] Pending 01/21/2017 Visit Plan: Diabetes Mellitus - [...] acute changes. 12/20/2016 Appointment: [facility]arm[facility] Espinal WPtel[phone] (30 min) Complex 12/20/2016 Patient Education: Patient Medication Summary Completed 12/20/2016 Patient Education: Smoking and Tobacco Addiction Completed 12/20/2016 Patient Education: Hypertension Completed 12/20/2016 Appointment: Karmen Espinal WPtel: [phone] (30 min) Complex 09/06/2016 Visit Plan: [...] d level 08/23/2016 Appointment: Karmen Espinal WPtel: [phone] (30 min) Complex 08/23/2016 Patient [...] acute changes. 05/22/2016 Appointment: Karmen Espinal WPtel: [phone] (30 min) Complex 05/22/2016 Patient Education: Patient Medication Summary Completed 05/22/2016 Patient Education: Smoking and Tobacco Addiction Completed 05/22/2016 Care Plan: Cbc With Differential Ordered 05/22/2016 Care Plan: %Hba1C LOIN C : 73997-8 Ordered 05/22/2016 Care Plan: Tsh Ordered 05/22/2016 [...] with update 02/24/2016 Appointment: Karmen Espinal WPtel: [phone] [phone] (30 min) Complex 02/24/2016 Patient Education: Patient [...] regimen. 01/27/2016 Appointment: [facility]inal [facility]Ptel[facility] [phone] [phone] (30 min) Complex 01/27/2016 Patient [...] POTENTIAL SIDE EFFECTS AND WORSENING OF SYMPTOMS. [id number] SIMVASTATIN X 2 WEEKS AND CALL WITH [...] Care Plan: COMPLETE CBC AUTOMATED LOINC : 07370-9 Ordered 03/24/2015 Visit Plan: Diabetes Mellitus - [...] for removal. 03/07/2015 Appointment: Violeta Ash WPtel: [address] [place], [place] [phone] (15 min) Moderate 03/07/2015 Patient Education: Patient [...] Care Plan: COMPLETE CBC AUTOMATED LOINC : 63577-4 Ordered 12/23/2014 Visit Plan: BPPV - Benign [...] next appt 2014 Appointment: Karmen Espinal WPtel: [address] [place], [place] [phone] [place] ([place]) New Patient 12/09/2014 Patient Education: [...] POTENTIAL SIDE EFFECTS AND WORSENING OF SYMPTOMS. [id number] SIMVASTATIN X 2 WEEKS AND CALL WITH [...]
--- OUTSIDE RECORDS SUMMARY | 2020-03-29 08:33 | XMS REPORT | CCD ---
Author Author Dick Espinal Organization [facility] Address [address] [place] [address] Phone Care Team Providers Care Bilingual Teacher Aide Name Role Phone PP Unavailable CCM Unavailable Summary Purpose Interface Exchange Insurance Providers Payer name Policy type / Coverage type Covered libertarian ID Effective Begin Date Effective End Date WPS Medicare Part B Medicare Part B [id number] Unknown Unknown [employer] Medic[employer] e Part B [id number] Unknown Unkn own Family history Father Diagnosis Age At Onset Cancer Unknown Mother Diagnosis Age At Onset Cancer Unknown Social History Social History Element Codes Description Effective Dates Marital status Unknown M arried 12/09/2014 Employment Unknown Retir ed 12/09/[address]: 67480097 Currently smokes tobacco 12/09/2014 Number of years using tobacco Unknown > 50 12/09/2014 Number of cigarettes/day Unknown 30 (Pack and a half) 12/09/[address]: 187691550 Never drinks alcohol 12/09/2014 Allergies, Adverse Reactions, [...] 5 mg-linh taminophen 325 mg tablet RxNorm: 149467 1 Tablet(s) PO Q6-8H as needed 01/25/2017 02/26/2017 Active simvastatin 40 mg ta blet RxNorm: 002368 Tablet(s) Take 1 tabl et by mouth daily at bedtime 01/03/2017 12/28/2017 Active lisinopril 10 mg tablet RxNorm: 429954 Tablet(s) Take 1 tablet by mouth daily 01/03/2017 12/28/2017 Ac tive Protonix 40 mg table t,delayed release RxNorm: 395003 Tablet(s) Take 1 tabl et by mouth daily 12/28/2016 12/22/2017 Active hydrocodone 5 mg-linh taminophen 325 mg tablet RxNorm: 788936 1 Tablet(s) PO Q6-8H as needed 12/26/2016 01/24/2017 Inactive Xanax 0.5 mg tablet RxNorm: 087188 1 Tablet(s) PO TID 12/12/2016 03/11/2017 Active simvastatin 40 mg ta blet RxNorm: 015779 Tablet(s) Take 1 tabl et by mouth daily at bedtime 11/30/2016 01/02/2017 Inactive simvastatin 40 mg ta blet RxNorm: 270137 Take 1 tablet by mout h daily at bedtime 11/29/2016 11/29/2016 In active - First Attempt Ref: [id number] Protonix 40 mg table t,delayed release RxNorm: 542535 Take 1 tablet by mout h daily 11/27/2016 12/27/2016 In active - First Attempt Ref: [id number] hydrocodone 5 mg-linh taminophen 325 mg tablet RxNorm: 440919 1 Tablet(s) PO Q6-8H as needed 11/26/2016 12/25/2016 Inactive hydrocodone 5 mg-linh taminophen 325 mg tablet RxNorm: 469126 1 Tablet(s) PO Q8 as needed 10/24/2016 11/25/2016 Inactive Xanax 0.5 mg tablet RxNorm: 333014 1 Tablet(s) PO TID 10/09/2016 12/25/2016 Inactive hydrocodone 5 mg-linh taminophen 325 mg tablet RxNorm: 326841 1 Tablet(s) PO Q8 as needed 09/27/2016 10/23/2016 Inactive lisinopril 10 mg tablet RxNorm: 463724 Take 1 tablet by mouth daily 09/25/2016 01/02/2017 Inactive - First Attempt Ref: [id number] Vitamin D2 50,000 un it capsule RxNorm: 931800 1 Capsule(s) PO QW 09/06/2016 No Stop Date Active hydrocodone 5 mg-linh taminophen 325 mg tablet RxNorm: 738168 1 Tablet(s) PO Q8 as needed 08/28/2016 09/26/2016 Inactive Toujeo SoloStar 300 unit/mL (1.5 mL) subcutaneous insulin pen RxNorm: 2154173 25 Unit(s) SQ QHS 08/23/2016 No Stop Date Active dosage increase hydrocodone 5 mg-linh taminophen 325 mg tablet RxNorm: 837114 1 Tablet(s) PO Q8 as needed 07/26/2016 08/27/2016 Inactive Protonix 40 mg table t,delayed release RxNorm: 017210 Take 1 tablet by mout h daily 07/24/2016 11/26/2016 In active - First Attempt Ref: [id number] hydrocodone 5 mg-linh taminophen 325 mg tablet RxNorm: 505274 1 Tablet(s) PO Q8 as needed 06/19/2016 07/21/2016 Inactive Toujeo SoloStar 300 unit/mL (1.5 mL) subcutaneous insulin pen RxNorm: 8212987 32 Unit(s) SQ QHS 05/30/2016 08/22/2016 Inactive dosage increase hydrocodone 5 mg-linh taminophen 325 mg tablet RxNorm: 693128 1 Tablet(s) PO Q8 as needed 05/22/2016 06/18/2016 Inactive hydrocodone 5 mg-linh taminophen 325 mg tablet RxNorm: 777531 1 Tablet(s) PO Q8 as needed 04/18/2016 05/17/2016 Inactive Protonix 40 mg table t,delayed release RxNorm: 509965 Take 1 tablet by mout h daily 04/05/2016 07/03/2016 In active - Ref: [id number] metformin 500 mg tablet RxNorm: 271431 Take 1 tablet by mouth daily 04/04/2016 07/02/2016 Inactive - Ref: [id number] Xanax 0.5 mg tablet RxNorm: 029038 1 Tablet(s) PO TID 03/30/2016 09/25/2016 Inactive Xanax 0.5 mg tablet RxNorm: 410732 1 Tablet(s) PO TID 03/23/2016 12/25/2016 Inactive hydrocodone 5 mg-linh taminophen 325 mg tablet RxNorm: 322437 1 Tablet(s) PO Q8 as needed 03/06/2016 04/04/2016 Inactive Cipro 500 mg tablet RxNorm: 448669 1 Tablet(s) PO BID 02/24/2016 03/04/2016 Inactive Miralax 17 gram oral powder packet RxNorm: 485719 1 packet PO every oth er day 01/27/2016 No Stop Date Active hydrocodone 5 mg-linh taminophen 325 mg tablet RxNorm: 422358 1 Tablet(s) PO Q8 as needed 01/27/2016 02/25/2016 Inactive lisinopril 10 mg tablet RxNorm: 358783 1 Tablet(s) PO daily 01/12/2016 09/24/2016 Inactive simvastatin 40 mg ta blet RxNorm: 425751 1 Tablet(s) PO QHS 01/12/2016 11/28/2016 Inactive simvastatin 40 mg ta blet RxNorm: 783139 1 Tablet(s) PO QHS 01/11/2016 01/11/2016 Inactive lisinopril 10 mg tablet RxNorm: 298571 1 Tablet(s) PO daily 01/06/2016 01/11/2016 Inactive simvastatin 40 mg ta blet RxNorm: 774948 1 Tablet(s) PO daily 12/28/2015 01/10/2016 Inactive hydrocodone 5 mg-linh taminophen 325 mg tablet RxNorm: 338668 1 Tablet(s) PO Q8 as needed 12/27/2015 01/26/2016 Inactive Xanax 0.5 mg tablet RxNorm: 337559 1 Tablet(s) PO TID 11/30/2015 03/29/2016 Inactive meclizine 25 mg tablet RxNorm: 489897 1 Tablet(s) PO Q6 PRN TAKE ONE TABLET BY MOUTH EVERY 6 HOURS NEEDED 11/25/2015 02/22/2016 Inactive Toujeo SoloStar 300 unit/mL (1.5 mL) subcutaneous insulin pen RxNorm: 1131885 30 Unit(s) SQ QHS 11/25/2015 05/29/2016 Inactive dosage increase omeprazole 20 mg cap jacquelyn,delayed release RxNorm: 154994 1 Capsule(s) PO daily 10/06/2015 01/26/2016 In active Toujeo SoloStar 300 unit/mL (1.5 mL) subcutaneous insulin pen RxNorm: 3522596 35 Unit(s) SQ QHS 08/02/2015 11/24/2015 Inactive dosage increase Vitamin D2 50,000 un it capsule RxNorm: 415971 1 Capsule(s) PO QW 08/02/2015 09/05/2016 Inactive hydrocodone 5 mg-linh taminophen 325 mg tablet RxNorm: 364624 1 Tablet(s) PO Q8 as needed 07/11/2015 12/26/2015 Inactive Xanax 0.5 mg tablet RxNorm: 880964 1 Tablet(s) PO TID 06/30/2015 06/29/2015 Inactive Xanax 0.5 mg tablet RxNorm: 675251 1 Tablet(s) PO TID 06/30/2015 12/25/2015 Inactive hydrocodone 5 mg-linh taminophen 325 mg tablet RxNorm: 230352 1 Tablet(s) PO Q8 as needed 05/06/2015 07/10/2015 Inactive Symbicort 160 mcg-4. 5 mcg/actuation HFA aerosol inhaler RxNorm: 5217965 INH 04/25/2015 No Stop Date Active Levemir FlexTouch 10 0 unit/mL (3 mL) subcutaneous insulin pen RxNorm: 940968 30 Unit(s) SQ QHS 04/25/2015 11/24/2015 Inactive prednisone 20 mg tablet RxNorm: 849020 1 Tablet(s) PO BID 04/25/2015 04/29/2015 Inactive metformin 500 mg tablet RxNorm: 386596 1 Tablet(s) PO daily 04/25/2015 04/03/2016 Inactive amoxicillin 500 mg c apsule RxNorm: 234110 1 Capsule(s) PO TID 04/14/2015 04/13/2015 Inactive amoxicillin 500 mg c apsule RxNorm: 062601 1 Capsule(s) PO TID a nd recommend probiotic tid (otc) 04/14/2015 04/20/2015 Inactive Kenalog 40 mg/mL bartolome pension for injection RxNorm: 4162671 Milliliter(s) Inj 04/12/2015 04/12/2015 In active hydrocodone 5 mg-linh taminophen 325 mg tablet RxNorm: 161225 1 Tablet(s) PO Q8 as needed 03/30/2015 05/05/2015 Inactive Lantus 100 unit/mL s ubcutaneous solution RxNorm: 552631 25 Unit(s) SQ QPM 03/24/2015 04/25/2015 In active meclizine 25 mg tablet RxNorm: 934870 Tablet(s) TAKE ONE TABLET BY MOUTH EVERY 6 HOURS NEEDED 03/08/2015 04/06/2015 Inactive meclizine 25 mg tablet RxNorm: 642810 TAKE ONE TABLET BY MOUTH EVERY 6 HOURS A S NEEDED 02/25/2015 03/03/2015 Inactive Lantus 100 unit/mL s ubcutaneous solution RxNorm: 915767 20 Unit(s) SQ QPM 02/23/2015 03/23/2015 In active Lantus 100 unit/mL s ubcutaneous solution RxNorm: 706078 25 Unit(s) SQ QPM 02/23/2015 02/22/2015 In active hydrocodone 5 mg-linh taminophen 325 mg tablet RxNorm: 745369 1 Tablet(s) PO Q8 as needed 02/17/2015 03/29/2015 Inactive Xanax 0.5 mg tablet RxNorm: 384649 1 Tablet(s) PO TID 02/03/2015 06/29/2015 Inactive Lantus 100 unit/mL s ubcutaneous solution RxNorm: 147799 20 Unit(s) SQ QPM 12/29/2014 02/22/2015 In active Phenergan 12.5 mg re ctal suppository RxNorm: 753711 1 Suppository RTL Q6 PRN 12/23/2014 No Stop Date Active nausea Kenalog 40 mg/mL bartolome pension for injection RxNorm: 0818560 Milliliter(s) Inj 12/23/2014 12/23/2014 In active prednisone 20 mg tablet RxNorm: 995474 2 Tablet(s) PO daily 12/13/2014 12/17/2014 Inactive prednisone 20 mg tablet RxNorm: 532074 2 Tablet(s) PO daily 12/13/2014 12/12/2014 Inactive meclizine 25 mg tablet RxNorm: 246453 1 Tablet(s) PO Q6 PRN 12/09/2014 02/24/2015 Inactive hydrocodone 5 mg-linh taminophen 325 mg tablet RxNorm: 460605 1 Tablet(s) PO Q8 as needed 12/09/2014 02/16/2015 Inactive Vitamin B-12 1,000 m cg/mL oral drops RxNorm: 5284362 1 Milliliter(s) PO d aily No Start Date Active Alphagan P 0.1 % eye drops RxNorm: 473479 1 Drop(s) OPH BID No Start Date Active aspirin 325 mg table t,delayed release RxNorm: 911155 1 Tablet(s) PO daily No Start Date Active Tricor 145 mg tablet RxNorm: 460688 1 Tablet(s) PO daily No Start Date Active vitamin X08-lzkpsan B1 oral liquid RxNorm: 1,000 Microgram(s) PO daily No Start Date Active atenolol 50 mg tablet RxNorm: 215467 1 Tablet(s) PO daily No Start Date Active Protonix 40 mg table t,delayed release RxNorm: 633298 1 Tablet(s) PO daily No Start Date 04/04/2016 Inactive glipizide 10 mg tablet RxNorm: 498846 1 Tablet(s) PO BID No Start Date 03/22/2015 Inactive Lantus 100 unit/mL s ubcutaneous solution RxNorm: 895989 15 Unit(s) SQ QPM No Start Date 12/28/2014 Inactive lisinopril 10 mg tablet RxNorm: 955036 1 Tablet(s) PO daily No Start Date 01/05/2016 Inactive Vitamin D2 50,000 un it capsule RxNorm: 756651 1 Capsule(s) PO QW No Start Date 08/01/2015 Inactive Toujeo SoloStar 300 unit/mL (1.5 mL) subcutaneous insulin pen RxNorm: 0413496 30 Unit(s) SQ QHS No Start Date 08/01/2015 Inactive simvastatin 40 mg ta blet RxNorm: 432877 1 Tablet(s) PO daily No Start Date 12/27/2015 Inactive hydrocodone 5 mg-linh taminophen 325 mg tablet RxNorm: 145461 1 Tablet(s) PO Q8 as needed No Start Date 12/08/2014 Inactive metformin 500 mg tablet RxNorm: 724261 1 Tablet(s) PO daily No Start Date 04/24/2015 Inactive omeprazole 20 mg cap jacquelyn,delayed release RxNorm: 247338 1 Capsule(s) PO daily No Start Date 10/05/2015 Inactive Flomax 0.4 mg capsule RxNorm: 942226 1 Capsule(s) PO daily No Start Date 03/23/2015 Inactive Medication Administered Medication Codes Instruc tions Start Date Status Kenalog 40 mg/mL suspension for injection RxNorm: 2635841 Milliliter 04/12/2015 No longer Active Kenalog 40 mg/mL suspension for injection RxNorm: 7948324 Milliliter 12/23/2014 No longer Active Immunizations Vaccine [...] Code Result Date Vitamin D 25 Oh [id number] VITAMIN D, 25 HYDROXY 44.40 ng/mL 12/21/2016 Comp Metabolic Yug483 NA 131 mEq/L 12/21/2016 Comp Metabolic Kvx330 K 4.2 mEq/L 12/21/2016 Comp Metabolic Wll434 CL 97 mEq/L 12/21/2016 Comp Metabolic Esr558 CO2 27.0 mEq/L 12/21/2016 Comp Metabolic Anh025 AN ION GAP 11 12/21/2016 Comp Metabolic Ngk184 GL UCOSE 266 mg/dL 12/21/2016 Comp Metabolic Wtj373 Cr eat 0.9 mg/dL 12/21/2016 Comp Metabolic Unj169 eG FR 88 ml/min/1.73m2 12/21 Comp Metabolic Bii486 BUN 12 mg/dL 12/21/2016 Comp Metabolic Gcq123 B/ C Ratio 13.6 Ratio 12/21/2016 Comp Metabolic Utb230 CA LCIUM 8.6 mg/dL 12/21/2016 Comp Metabolic Qcx264 AL K PHOS 69 U/L 12/21/2016 Comp Metabolic Woi117 T(SGOT) 15 U/L 12/21/2016 Comp Metabolic Pnh409 AL T(SGPT) 14 U/L 12/21/2016 Comp Metabolic Yee610 BI LI T 0.3 mg/dL 12/21/2016 Comp Metabolic Mjf058 AL BUMIN 3.7 g/dL 12/21/2016 Comp Metabolic Jhy686 TP RO 5.9 g/dL 12/21/2016 Comp Metabolic Acx096 GL OB 2.2 g/dL 12/21/2016 Comp Metabolic Obk757 A/ G Ratio 1.7 Ratio 12/21/2016 Comp Metabolic Hil245 Os mo 272 mOsmo 12/21/2016 Cbc With [...] 100.9 fl 12/21/2016 Cbc With Differential Ord2 [place]% 6.9 % 12/21/2016 Cbc With Differential Ord2 [...] 2.05 K/ul 12/21/2016 Cbc With Differential Ord2 [place] ABS# 0.4 K/ul 12/21/2016 Cbc With Differential Ord2 Eos ABS# 0.2 K/ul 12/21/2016 Cbc With Differential Ord2 Baso ABS# 0.0 K/ul 12/21/2016 Comp Metabolic Zaz040 NA 138 mEq/L 09/03/2016 Comp Metabolic Kcr881 K 4.5 mEq/L 09/03/2016 Comp Metabolic Qrs078 CL 102 mEq/L 09/03/2016 Comp Metabolic Llk701 CO2 30.0 mEq/L 09/03/2016 Comp Metabolic Igk688 AN ION GAP 11 09/03/2016 Comp Metabolic Ahk071 GL UCOSE 113 mg/dL 09/03/2016 Comp Metabolic Vvo313 Cr eat 1.0 mg/dL 09/03/2016 Comp Metabolic Gff477 eG FR 81 ml/min/1.73m2 09/03 Comp Metabolic Nkr389 BUN 10 mg/dL 09/03/2016 Comp Metabolic Nmf864 B/ C Ratio 10.5 Ratio 09/03/2016 Comp Metabolic Kjt759 CA LCIUM 9.1 mg/dL 09/03/2016 Comp Metabolic Fti599 AL K PHOS 71 U/L 09/03/2016 Comp Metabolic Ati060 T(SGOT) 18 U/L 09/03/2016 Comp Metabolic Siw107 AL T(SGPT) 17 U/L 09/03/2016 Comp Metabolic Lty092 BI LI T 0.6 mg/dL 09/03/2016 Comp Metabolic Uqa135 AL BUMIN 4.1 g/dL 09/03/2016 Comp Metabolic Hep795 TP RO 6.4 g/dL 09/03/2016 Comp Metabolic Lmt047 GL OB 2.3 g/dL 09/03/2016 Comp Metabolic Zat628 A/ G Ratio 1.8 Ratio 09/03/2016 Comp Metabolic Oux394 Os mo 276 mOsmo 09/03/2016 Cbc With Differential Ord2 WBC 8.06 [...] 34.4 pg 09/03/2016 Cbc With Differential Ord2 [place]% 8.9 % 09/03/2016 Cbc With Differential Ord2 [...] 3.34 K/ul 09/03/2016 Cbc With Differential Ord2 [place] ABS# 0.7 K/ul 09/03/2016 Cbc With Differential Ord2 Eos ABS# 0.4 K/ul 09/03/2016 Cbc With Differential Ord2 Baso ABS# 0.0 K/ul 09/03/2016 %Hba1C Hxk437 % HbA1c 16620-3 7.5 % 09/03/2016 %Hba1C Fiv484 Gluc Ave 169 mg/dL 09/03/2016 Lipid Ord30 CHOL 120 mg/dL 09/03/2016 Lipid Ord30 HDL 33.0 mg/dl 09/03/2016 Lipid Ord30 TRIG 161 mg/dL 09/03/2016 Lipid Ord30 LDL 55 mg/dL 09/03/2016 Lipid Ord30 C/HDL 3.6 Ratio 09/03/2016 Vitamin D 25 Oh [id number] VITAMIN D, 25 HYDROXY 28.23 ng/mL 09/03/2016 Tsh Ord6 hTSH II 4.12 uIU/mL 09/03/2016 %Hba1C Bfu158 % HbA1c 07641-1 7.6 % 05/23/2016 %Hba1C Kmb966 Gluc Ave 171 mg/dL 05/23/2016 Cbc With Differential Ord2 WBC 6.39 K/ul 05/23/2016 Cbc With Differential Ord2 RBC 3.48 M/ul 05/23/2016 Cbc With Differential Ord2 HGB 12.0 g/dl 05/23/2016 Cbc With Differential Ord2 Neut% 52.8 % 05/23/2016 Cbc With Differential Ord2 HCT 35.5 % 05/23/2016 Cbc With Differential Ord2 Lymph% 37.2 % 05/23/2016 Cbc With Differential Ord2 MCV 102.0 fl 05/23/2016 Cbc With Differential Ord2 [place]% 6.1 % 05/23/2016 Cbc With Differential Ord2 MCH 34.5 pg 05/23/2016 Cbc With Differential Ord2 Eos% 3.4 % 05/23/2016 Cbc With Differential Ord2 MCHC 33.8 pg 05/23/2016 Cbc With Differential Ord2 Baso% 0.5 % 05/23/2016 Cbc With Differential Ord2 PLT 192 K/ul 05/23/2016 Cbc With Differential Ord2 RDW 13.5 % 05/23/2016 Cbc With Differential Ord2 Neut ABS# 3.37 K/ul 05/23/2016 Cbc With Differential Ord2 Lymph ABS# 2.38 K/ul 05/23/2016 Cbc With Differential Ord2 [place] ABS# 0.4 K/ul 05/23/2016 Cbc With Differential Ord2 Eos ABS# 0.2 K/ul 05/23/2016 Cbc With Differential Ord2 Baso ABS# 0.0 K/ul 05/23/2016 Comp Metabolic Ogr637 NA 135 mEq/L 05/23/2016 Comp Metabolic Zei438 K 4.4 mEq/L 05/23/2016 Comp Metabolic Bzk250 CL 99 mEq/L 05/23/2016 Comp Metabolic Fhv134 CO2 28.0 mEq/L 05/23/2016 Comp Metabolic Zoi206 AN ION GAP 12 05/23/2016 Comp Metabolic Yzt745 GL UCOSE 257 mg/dL 05/23/2016 Comp Metabolic Rcq436 Cr eat 0.8 mg/dL 05/23/2016 Comp Metabolic Dzs284 eG FR 95 ml/min/1.73m2 05/23 Comp Metabolic Bge820 BUN 11 mg/dL 05/23/2016 Comp Metabolic Nuf313 B/ C Ratio 13.3 Ratio 05/23/2016 Comp Metabolic Ywa041 CA LCIUM 9.0 mg/dL 05/23/2016 Comp Metabolic Uub197 AL K PHOS 82 U/L 05/23/2016 Comp Metabolic Kqk053 T(SGOT) 21 U/L 05/23/2016 Comp Metabolic Nlk167 AL T(SGPT) 20 U/L 05/23/2016 Comp Metabolic Pzp646 BI LI T 0.3 mg/dL 05/23/2016 Comp Metabolic Oie794 AL BUMIN 4.0 g/dL 05/23/2016 Comp Metabolic Xaa204 TP RO 6.4 g/dL 05/23/2016 Comp Metabolic Qxo534 GL OB 2.4 g/dL 05/23/2016 Comp Metabolic Uwa941 A/ G Ratio 1.6 Ratio 05/23/2016 Comp Metabolic Ajr499 Os mo 278 mOsmo 05/23/2016 Tsh Ord6 hTSH II 1.50 uIU/mL 05/23/2016 B12 Oma134 B12 597.00 pg/ml 05/23/2016 Metabolic Ord15 NA [...] 01/10/2016 Metabolic Ord15 CALCIUM 9.1 mg/dL 01/10/2016 %Hba1C Ded842 % HbA1c 69910-7 8.8 % 07/29/2015 %Hba1C Fll033 Gluc Ave 206 mg/dL 07/29/2015 Comp Metabolic Njt022 NA 138 mEq/L 07/29/2015 Comp Metabolic Oao866 K 4.4 mEq/L 07/29/2015 Comp Metabolic Azl219 CL 102 mEq/L 07/29/2015 Comp Metabolic Rjr844 CO2 28.0 mEq/L 07/29/2015 Comp Metabolic Zqt246 AN ION GAP 12 07/29/2015 Comp Metabolic Hic321 GL UCOSE 261 mg/dL 07/29/2015 Comp Metabolic Rvc232 Cr eat 1.0 mg/dL 07/29/2015 Comp Metabolic Rtd810 eG FR 77 ml/min/1.73m2 07/29 Comp Metabolic Nyu876 BUN 13 mg/dL 07/29/2015 Comp Metabolic Uog152 B/ C Ratio 13.0 Ratio 07/29/2015 Comp Metabolic Hoj021 CA LCIUM 9.1 mg/dL 07/29/2015 Comp Metabolic Dko605 AL K PHOS 64 U/L 07/29/2015 Comp Metabolic Nsj412 T(SGOT) 20 U/L 07/29/2015 Comp Metabolic Epi336 AL T(SGPT) 22 U/L 07/29/2015 Comp Metabolic Gdi483 BI LI T 0.4 mg/dL 07/29/2015 Comp Metabolic Mat657 AL BUMIN 4.0 g/dL 07/29/2015 Comp Metabolic Lba830 TP RO 6.1 g/dL 07/29/2015 Comp Metabolic Zor646 GL OB 2.1 g/dL 07/29/2015 Comp Metabolic Fqb881 A/ G Ratio 1.9 Ratio 07/29/2015 Comp Metabolic Ogo713 Os mo 285 mOsmo 07/29/2015 Vitamin D 25 Oh Bxh0655 VITAMIN D, 25 HYDROXY 26.93 ng/mL 07/29/2015 Cbc With Differential Ord2 WBC 7.0 [...] With Differential Ord2 RDW 14.9 % 07/29/2015 Tsh Ord6 hTSH II 0.92 uIU/mL 07/29/2015 Cbc With Differential Ord2 WBC 11.7 [...] Ord2 RDW 13.1 % 05/06/2015 Comp Metabolic Tsj983 NA 134 mEq/L 05/06/2015 Comp Metabolic Bid562 K 4.4 mEq/L 05/06/2015 Comp Metabolic Wxq646 CL 98 mEq/L 05/06/2015 Comp Metabolic Fxh766 CO2 29.0 mEq/L 05/06/2015 Comp Metabolic Jnb276 AN ION GAP 11 05/06/2015 Comp Metabolic Zpl458 GL UCOSE 321 mg/dL 05/06/2015 Comp Metabolic Oet816 Cr eat 1.0 mg/dL 05/06/2015 Comp Metabolic Pek424 eG FR 78 ml/min/1.73m2 05/06 Comp Metabolic Qku353 BUN 20 mg/dL 05/06/2015 Comp Metabolic Gti162 B/ C Ratio 20.4 Ratio 05/06/2015 Comp Metabolic Sgf353 CA LCIUM 9.5 mg/dL 05/06/2015 Comp Metabolic Ghq524 AL K PHOS 62 U/L 05/06/2015 Comp Metabolic Clb889 T(SGOT) 21 U/L 05/06/2015 Comp Metabolic Rzs586 AL T(SGPT) 37 U/L 05/06/2015 Comp Metabolic Qct820 BI LI T 0.4 mg/dL 05/06/2015 Comp Metabolic Tkz228 AL BUMIN 3.8 g/dL 05/06/2015 Comp Metabolic Brg102 TP RO 6.1 g/dL 05/06/2015 Comp Metabolic Ibm408 GL OB 2.3 g/dL 05/06/2015 Comp Metabolic Xkf906 A/ G Ratio 1.7 Ratio 05/06/2015 Comp Metabolic Soc251 Os mo 283 mOsmo 05/06/2015 %Hba1C Rme456 % HbA1c 42286-2 8.3 % 02/18/2015 %Hba1C Wtb377 Gluc Ave 192 mg/dL 02/18/2015 Tsh Ord6 hTSH II 1.65 uIU/mL 02/18/2015 B12 Cpn092 B12 605.00 pg/ml 02/18/2015 Comp Metabolic Wax803 NA 137 mEq/L 02/17/2015 Comp Metabolic Tda885 K 4.4 mEq/L 02/17/2015 Comp Metabolic Ncl883 CL 100 mEq/L 02/17/2015 Comp Metabolic Rri463 CO2 31.0 mEq/L 02/17/2015 Comp Metabolic Aad992 AN ION GAP 10 02/17/2015 Comp Metabolic Kqw597 GL UCOSE 307 mg/dL 02/17/2015 Comp Metabolic Pdl242 Cr eat 1.0 mg/dL 02/17/2015 Comp Metabolic Cag349 eG FR 74 ml/min/1.73m2 02/17 Comp Metabolic Ugd986 BUN 22 mg/dL 02/17/2015 Comp Metabolic Dex380 B/ C Ratio 21.4 Ratio 02/17/2015 Comp Metabolic Dil418 CA LCIUM 9.5 mg/dL 02/17/2015 Comp Metabolic Bzi195 AL K PHOS 78 U/L 02/17/2015 Comp Metabolic Pwe884 T(SGOT) 18 U/L 02/17/2015 Comp Metabolic Syo712 AL T(SGPT) 32 U/L 02/17/2015 Comp Metabolic Xzj403 BI LI T 0.5 mg/dL 02/17/2015 Comp Metabolic Ugt214 AL BUMIN 4.3 g/dL 02/17/2015 Comp Metabolic Itx736 TP RO 6.7 g/dL 02/17/2015 Comp Metabolic Qiq353 GL OB 2.4 g/dL 02/17/2015 Comp Metabolic Xpe806 A/ G Ratio 1.8 Ratio 02/17/2015 Comp Metabolic Dnr895 Os mo 289 mOsmo 02/17/2015 Cbc With Differential Ord2 WBC 9.3 K/uL [...] With Differential Ord2 RDW 13.9 % 02/17/2015 Review of Systems System Result Effective [...] Date ADMIN INFLUENZA VIRU S VAC CPT-4: X3498Hlxybfc 05/22/2016 FLU VACC 4 TELLY 3 YRS PLUS IM Formatting Model/CDA Sections, Assigned to/Angela Clemons SNOMED CT: 58441087 CPT-4: 23477Lpkdceo 05/22/2016 TOBACCO-USE GAS EXAMINER 3-[address]: 535749476 CPT-4: T0425Dkqjelr 11/25/2015 URINALYSIS NONAUTO W /O SCOPE CPT-4: 41269Sqhuzff 05/09/2015 TRIAMCINOLONE ACET I [place] NOS CPT-4: E2797Vzjckon 04/12/2015 DESTRUCT PREMALG LES ION CPT-4: 80553Serkrmm 03/07/2015 DESTRUCT PREMALG LES 2-14 CPT-4: 13229Ncalbmh 03/07/2015 REMOVE IMPACTED EAR WAX UNI CPT-4: 37341Hcfwzjx 12/31/2014 THER/PROPH/DIAG INJ SC/IM CPT-4: 98349Bjwszll 12/23/2014 TRIAMCINOLONE ACET I [place] NOS CPT-4: C5569Qwbjcal 12/23/2014 Vital Signs Date Vital 01/21/2017 Blood Pressure 1: 160/68 Code: 8480-6 BMI: 21.3 Code: 90461-4 Heart Rate 1: 62 bpm Height: 5'11" SpO2: 96% Weight: 153 lbs 12/20/2016 Blood Pressure 1: 124/66 Code: 8480-6 BMI: 21.5 Code: 97908-5 Height: 5'11" Weight: 154 lbs 08/23/2016 Blood Pressure 1: 142/52 Code: 8480-6 BMI: 21.2 Code: 01561-1 Heart Rate 1: 54 bpm Height: 5'11" SpO2: 96% Weight: 152 lbs 05/22/2016 Blood Pressure 1: 130/76 Code: 8480-6 BMI: 21.5 Code: 72127-2 Heart Rate 1: 78 bpm Height: 5'11" SpO2: 92% Weight: 154 lbs 02/24/2016 Blood Pressure 1: 128/80 Code: 8480-6 BMI: 21.2 Code: 57034-3 Heart Rate 1: 74 bpm Height: 5'11" SpO2: 96% Weight: 152 lbs 01/27/2016 Blood Pressure 1: 144/60 Code: 8480-6 BMI: 21.2 Code: 99634-9 Heart Rate 1: 74 bpm Height: 5'11" SpO2: 97% Weight: 152 lbs 11/25/2015 Blood Pressure 1: 110/52 Code: 8480-6 BMI: 21.9 Code: 40920-9 Heart Rate 1: 65 bpm Height: 5'11" SpO2: 92% Weight: 157 lbs 07/28/2015 Blood Pressure 1: 138/62 Code: 8480-6 BMI: 21.8 Code: 78814-6 Heart Rate 1: 63 bpm Height: 5'11" SpO2: 91% Weight: 156 lbs 05/26/2015 Blood Pressure 1: 120/58 Code: 8480-6 BMI: 21.5 Code: 09799-5 Heart Rate 1: 99 bpm Height: 5'11" SpO2: 96% Weight: 154 lbs 05/06/2015 Blood Pressure 1: 120/58 Code: 8480-6 BMI: 21.2 Code: 57230-1 Heart Rate 1: 66 bpm Height: 5'11" SpO2: 96% Weight: 152 lbs 04/25/2015 Blood Pressure 1: 136/62 Code: 8480-6 BMI: 21.2 Code: 22411-0 Heart Rate 1: 63 bpm Height: 5'11" SpO2: 97% Weight: 152 lbs 04/12/2015 Blood Pressure 1: 160/58 Code: 8480-6 BMI: 21.6 Code: 06295-8 Heart Rate 1: 62 bpm Height: 5'11" Weight: 155 lbs 03/24/2015 Blood Pressure 1: 138/68 Code: 8480-6 BMI: 22.0 Code: 19418-1 Heart Rate 1: 65 bpm Height: 5'11" SpO2: 96% Weight: 158 lbs 03/07/2015 Blood Pressure 1: 116/52 Code: 8480-6 BMI: 22.2 Code: 81234-1 Heart Rate 1: 64 bpm Height: 5'11" SpO2: 97% Weight: 159 lbs 02/17/2015 Blood Pressure 1: 148/58 Code: 8480-6 BMI: 21.3 Code: 14344-8 Heart Rate 1: 63 bpm Height: 5'11" SpO2: 97% Weight: 153 lbs 12/31/2014 Blood Pressure 1: 100/60 Code: 8480-6 BMI: 21.8 Code: 59956-0 Heart Rate 1: 68 bpm Height: 5'11" Weight: 156 lbs 12/23/2014 Blood Pressure 1: 148/64 Code: 8480-6 BMI: 21.9 Code: 03913-4 Heart Rate 1: 64 bpm Height: 5'11" [...] Encounters Encounter Performer Loca tion Codes Date ([id number]) [id number] EST. P ATIENT, LEVEL IV Diagnosis: Slow transit constipation[ICD10: K59.01] Diagnosis: Gastro-esophageal reflux disease without esophagitis[ICD10: K21.9] Diagnosis: Essential (primary) hypertension[ICD10: I10] Karmen Ash MD, [facility] CPT-4: 74201 01/21/2017 ([id number]) [id number] EST. P ATIENT, LEVEL IV Diagnosis: Type 2 diabetes mellitus with hyperglycemia[ICD10: E11.65] Diagnosis: Vitamin D deficiency, unspecified[ICD10: E55.9] Diagnosis: Essential (primary) hypertension[ICD10: I10] Diagnosis: Chronic obstructive pulmonary disease, unspecified[ICD10: J44.9] Karmen Ash MD, [facility] CPT-4: 65820 12/20/2016 ([id number]) [id number] EST. P ATIENT, LEVEL IV Diagnosis: Type 2 diabetes mellitus with hyperglycemia[ICD10: E11.65] Diagnosis: Essential (primary) hypertension[ICD10: I10] Diagnosis: Mixed hyperlipidemia[ICD10: E78.2] Diagnosis: Vitamin D deficiency, unspecified[ICD10: E55.9] Karmen Ash MD, [facility] CPT-4: 46187 08/23/2016 ([id number]) [id number] EST. P ATIENT, LEVEL IV Diagnosis: Type 2 diabetes mellitus with hyperglycemia[ICD10: E11.65] Diagnosis: Essential (primary) hypertension[ICD10: I10] Diagnosis: Chronic obstructive pulmonary disease, unspecified[ICD10: J44.9] Karmen Ash MD, [facility] CPT-4: 26549 05/22/2016 ([id number]) 52973 EST. P ATIENT, LEVEL III Diagnosis: Dysuria[ICD10: R30.0] Diagnosis: Essential (primary) hypertension[ICD10: I10] Karmen Ash MD, [facility] CPT-4: 37786 02/24/2016 ([id number]) 03197 EST. P ATIENT, LEVEL IV Diagnosis: Gastro-esophageal reflux disease without esophagitis[ICD10: K21.9] Diagnosis: Slow transit constipation[ICD10: K59.01] Diagnosis: Type 2 diabetes mellitus with hyperglycemia[ICD10: E11.65] Karmen Ash MD, [facility] CPT-4: 11306 01/27/2016 ([id number]) 55058 EST. P ATIENT, LEVEL IV Diagnosis: Essential (primary) hypertension[ICD10: I10] Diagnosis: Type 2 diabetes mellitus with hyperglycemia[ICD10: E11.65] Diagnosis: Vitamin D deficiency, unspecified[ICD10: E55.9] Diagnosis: Chronic obstructive pulmonary disease, unspecified[ICD10: J44.9] Diagnosis: Mixed hyperlipidemia[ICD10: E78.2] Diagnosis: Tobacco use[ICD10: Z72.0] Karmen Ash MD, [facility] CPT- 4: 43598 11/25/2015 ([id number]) 86541 EST. P ATIENT, LEVEL IV Diagnosis: Type 2 diabetes mellitus with hyperglycemia[ICD10: E11.65] Diagnosis: Essential (primary) hypertension[ICD10: I10] Diagnosis: Vitamin D deficiency, unspecified[ICD10: E55.9] Karmen Ash MD, [facility] CPT-4: 64672 07/28/2015 ([id number]) 81541 EST. P ATIENT, LEVEL III Diagnosis: Type 2 diabetes mellitus with hyperglycemia[ICD10: E11.65] Diagnosis: Essential (primary) hypertension[ICD10: I10] Violeta Ash MD, [facility] CPT-4: 07563 05/26/2015 ([id number]) 98999 EST. P ATIENT, LEVEL III Diagnosis: DIABETES TYPE II[ICD9: 250.00] Diagnosis: COPD (chronic obstructive pulmonary disease)[ICD9: 496] Diagnosis: ESSENTIAL HYPERTENSION[ICD9: 401.9] Diagnosis: Cough[ICD9: 786.2] Violeta Ash MD, [facility] CPT-4: 50205 05/06/2015 ([id number]) 99738 EST. P ATIENT, LEVEL III Diagnosis: COPD (chronic obstructive pulmonary disease)[ICD9: 496] Diagnosis: DIABETES TYPE II[ICD9: 250.00] Diagnosis: Muscle ache[ICD9: 729.1] Karmen Ash MD, [facility] CPT- 4: 01962 04/25/2015 ([id number]) 98374 EST. P ATIENT, LEVEL III Diagnosis: ACTINIC KERATOSIS[ICD9: 702.0] Diagnosis: COPD (chronic obstructive pulmonary disease)[ICD9: 496] Diagnosis: DIABETES TYPE II[ICD9: 250.00] Diagnosis: ACUTE URI[ICD9: 465.9] Violeta Ash MD, [facility] CPT-4: 78572 04/12/2015 ([id number]) 00068 EST. P ATIENT, LEVEL III Diagnosis: DIABETES TYPE II[ICD9: 250.00] Violeta Ash MD, [facility] CPT-4: 99648 03/24/2015 ([id number]) 95089 EST. P ATIENT, LEVEL IV Diagnosis: DIABETES TYPE II[ICD9: 250.00] Diagnosis: Hypoglycemia[ICD9: 251.2] Diagnosis: Skin texture changes[ICD9: 782.8] Violeta Ash MD, [facility] CPT-4: 69596 03/07/2015 ([id number]) 96335 EST. P ATIENT, LEVEL IV Diagnosis: COPD (chronic obstructive pulmonary disease)[ICD9: 496] Diagnosis: Fatigue[ICD9: 780.79] Diagnosis: Insulin dependent diabetes mellitus[ICD9: 250.00] Diagnosis: Unsteady gait[ICD9: 781.2] Maame Ash MD, [facility] CPT-4: 80776 02/17/2015 ([id number]) 07996 EST. P ATIENT, LEVEL IV Diagnosis: BPPV (benign paroxysmal positional vertigo)[ICD9: 386.11] Diagnosis: Impacted cerumen[ICD9: 380.4] Diagnosis: ESSENTIAL HYPERTENSION[ICD9: 401.9] Diagnosis: Insulin dependent diabetes mellitus[ICD9: 250.00] [facility] CPT-4: 93828 12/23/2014 ([id number]) OFFICE [facility] LEVEL 4 Diagnosis: Insulin dependent diabetes mellitus[ICD9: 250.00] Diagnosis: BPPV (benign paroxysmal positional vertigo)[ICD9: 386.11] Diagnosis: COPD (chronic obstructive pulmonary disease)[ICD9: 496] Diagnosis: Tobacco abuse[ICD9: 305.1] Diagnosis: Osteoarthritis[ICD9: 715.90] [facility] CPT- 4: 60957 12/09/2014 Plan of Care Planned Activity Notes C odes Status Date Appointment: Karmen Espinal WPtel: [address] [place], [place] [phone] (30 min) Complex 01/21/2017 Patient Education: Patient Medication Summary Completed 01/21/2017 Patient Education: Smoking and Tobacco Addiction Completed 01/21/2017 Patient Education: Hypertension Completed 01/21/2017 Care Plan: Referral Order SNOMED-CT : [id number] Pending 01/21/2017 Appointment: Karmen Espinal WPtel: [address] [place], [place] [phone] (30 min) Complex 12/20/2016 Patient Education: Patient Medication Summary Completed 12/20/2016 Patient Education: Smoking and Tobacco Addiction Completed 12/20/2016 Patient Education: Hypertension Completed 12/20/2016 Appointment: Karmen Espinal WPtel: [address] [place], [place] [phone] (30 min) Complex 09/06/2016 Appointment: Karmen Espinal WPtel: [address] [place], [place] [phone] (30 min) Complex 08/23/2016 Patient Education: Patient Medication Summary Completed 08/23/2016 Patient Education: Smoking and Tobacco Addiction Completed 08/23/2016 Patient Education: Patient Medication Summary Completed 05/23/2016 Appointment: Karmen Espinal WPtel: [phone] (30 min) Complex 05/22/2016 Patient Education: Patient Medication Summary Completed 05/22/2016 Patient Education: Smoking and Tobacco Addiction Completed 05/22/2016 Care Plan: Cbc With Differential Ordered 05/22/2016 Care Plan: %Hba1C LOIN C : 52264-4 Ordered 05/22/2016 Care Plan: Tsh Ordered 05/22/2016 Care Plan: Comp Metabolic Ordered 05/22/2016 Appointment: Karmen Espinal WPtel: [phone] (30 min) Complex 02/24/2016 Patient Education: Patient Medication Summary Completed 02/24/2016 Patient Education: Smoking and Tobacco Addiction Completed 02/24/2016 Patient Education: Hypertension Completed 02/24/2016 Appointment: Kramen Espinal WPtel: [phone] (30 min) Complex 01/27/2016 Patient Education: Patient Medication Summary Completed 01/27/2016 Patient Education: Smoking and Tobacco Addiction Completed 01/27/2016 Appointment: (30 min) Complex 11/25/2015 Patient Education: Patient Medication Summary Completed 11/25/2015 Patient Education: Smoking and Tobacco Addiction Completed 11/25/2015 Appointment: (30 min) Complex 07/28/2015 Patient Education: Patient Medication Summary Completed 07/28/2015 Patient Education: Hypertension Completed 07/28/2015 Appointment: (30 min) Complex 05/26/2015 Patient Education: Patient Medication Summary Completed 05/26/2015 Patient Education: Hypertension Completed 05/26/2015 Patient Education: Patient Medication Summary Completed 05/09/2015 Appointment: (15 min) Moderate 05/06/2015 Patient Education: Patient Medication Summary Completed 05/06/2015 Patient Education: Hypertension Completed 05/06/2015 Appointment: (30 min) Complex 04/25/2015 Patient Education: Patient Medication Summary Completed 04/25/2015 Patient Education: Patient Medication Summary Completed 04/12/2015 Appointment: (15 min) Moderate 03/24/2015 Patient Education: Patient Medication Summary Completed 03/24/2015 Care Plan: COMPLETE CBC AUTOMATED LOINC : 72993-1 Ordered 03/24/2015 App[facility]ment[facility] [phone] [phone] (15 min) Moderate 03/07/2015 Patient Education: Patient Medication Summary Completed 03/07/2015 Appointment: (15 min) Moderate 02/21/2015 Appointment: (15 min) Moderate 02/17/2015 Patient Education: Patient Medication Summary Completed 02/17/2015 Care Plan: Vitamin D 25 Oh Pending 02/17/2015 Appointment: Sick 12/31/2014 Patient Education: Patient Medication Summary Completed 12/31/2014 Appointment: (S) New Patient 12/24/2014 Appointment: Follow up 12/23/2014 Patient Education: Patient Medication Summary Completed 12/23/2014 Patient Education: Hypertension Completed 12/23/2014 Care Plan: COMPLETE CBC AUTOMATED LOINC : 04277-6 Ordered 12/23/2014 Appointment: [facility] [phone] [facility] [phone] [place] (S) New Patient 12/09/2014 Patient Education: Patient Medication Summary Completed 12/09/2014 Patient Education: .Amazing charts Parox ysmal positional vertigo Completed 12/09/2014 Patient Education: Smoking and Tobacco Addiction Completed 12/09/2014 Referral: Luis Valdes Referral Appointment Requested Instructions No Instructions
--- OUTSIDE RECORDS SUMMARY | 2020-03-29 08:35 | XMS REPORT | CCD ---
Author Author Dick Espinal Organization [facility] Address [address] [place] [address] Phone Care Team Providers Care Promotional Representative Name Role Phone PP Unavailable CCM Unavailable Summary Purpose Interface Exchange Insurance Providers Payer name Policy type / Coverage type Covered democrat ID Effective Begin Date Effective End Date WPS Medicare Part B Medicare Part B [id number] Unknown Unknown [employer] Medic[employer] e Part B [id number] Unknown Unkn own Family history Father Diagnosis Age At Onset Cancer Unknown Mother Diagnosis Age At Onset Cancer Unknown Social History Social History Element Codes Description Effective Dates Marital status Unknown M arried 12/09/2014 Employment Unknown Retir ed 12/09/[address]: 27795437 Currently smokes tobacco 12/09/2014 Number of years using tobacco Unknown > 50 12/09/2014 Number of cigarettes/day Unknown 30 (Pack and a half) 12/09/[address]: 938254682 Never drinks alcohol 12/09/2014 Allergies, Adverse Reactions, [...] Date Stop Date Sta tus Fill Instructions simvastatin 40 mg ta blet RxNorm: 428919 Tablet(s) Take 1 tabl et by mouth daily at bedtime 01/03/2017 12/28/2017 Active lisinopril 10 mg tablet RxNorm: 579412 Tablet(s) Take 1 tablet by mouth daily 01/03/2017 12/28/2017 Ac tive Protonix 40 mg table t,delayed release RxNorm: 845823 Tablet(s) Take 1 tabl et by mouth daily 12/28/2016 12/22/2017 Active hydrocodone 5 mg-linh taminophen 325 mg tablet RxNorm: 348935 1 Tablet(s) PO Q6-8H as needed 12/26/2016 01/27/2017 Active Xanax 0.5 mg tablet RxNorm: 233822 1 Tablet(s) PO TID 12/12/2016 03/11/2017 Active simvastatin 40 mg ta blet RxNorm: 835512 Tablet(s) Take 1 tabl et by mouth daily at bedtime 11/30/2016 01/02/2017 Inactive simvastatin 40 mg ta blet RxNorm: 359986 Take 1 tablet by mout h daily at bedtime 11/29/2016 11/29/2016 In active - First Attempt Ref: [id number] Protonix 40 mg table t,delayed release RxNorm: 396516 Take 1 tablet by mout h daily 11/27/2016 12/27/2016 In active - First Attempt Ref: [id number] hydrocodone 5 mg-linh taminophen 325 mg tablet RxNorm: 640122 1 Tablet(s) PO Q6-8H as needed 11/26/2016 12/25/2016 Inactive hydrocodone 5 mg-linh taminophen 325 mg tablet RxNorm: 166660 1 Tablet(s) PO Q8 as needed 10/24/2016 11/25/2016 Inactive Xanax 0.5 mg tablet RxNorm: 855167 1 Tablet(s) PO TID 10/09/2016 12/25/2016 Inactive hydrocodone 5 mg-linh taminophen 325 mg tablet RxNorm: 611401 1 Tablet(s) PO Q8 as needed 09/27/2016 10/23/2016 Inactive lisinopril 10 mg tablet RxNorm: 129080 Take 1 tablet by mouth daily 09/25/2016 01/02/2017 Inactive - First Attempt Ref: [id number] Vitamin D2 50,000 un it capsule RxNorm: 251395 1 Capsule(s) PO QW 09/06/2016 No Stop Date Active hydrocodone 5 mg-linh taminophen 325 mg tablet RxNorm: 632352 1 Tablet(s) PO Q8 as needed 08/28/2016 09/26/2016 Inactive Toujeo SoloStar 300 unit/mL (1.5 mL) subcutaneous insulin pen RxNorm: 1179746 25 Unit(s) SQ QHS 08/23/2016 No Stop Date Active dosage increase hydrocodone 5 mg-linh taminophen 325 mg tablet RxNorm: 624086 1 Tablet(s) PO Q8 as needed 07/26/2016 08/27/2016 Inactive Protonix 40 mg table t,delayed release RxNorm: 594892 Take 1 tablet by mout h daily 07/24/2016 11/26/2016 In active - First Attempt Ref: [id number] hydrocodone 5 mg-linh taminophen 325 mg tablet RxNorm: 092657 1 Tablet(s) PO Q8 as needed 06/19/2016 07/21/2016 Inactive Toujeo SoloStar 300 unit/mL (1.5 mL) subcutaneous insulin pen RxNorm: 8375942 32 Unit(s) SQ QHS 05/30/2016 08/22/2016 Inactive dosage increase hydrocodone 5 mg-linh taminophen 325 mg tablet RxNorm: 606464 1 Tablet(s) PO Q8 as needed 05/22/2016 06/18/2016 Inactive hydrocodone 5 mg-linh taminophen 325 mg tablet RxNorm: 151190 1 Tablet(s) PO Q8 as needed 04/18/2016 05/17/2016 Inactive Protonix 40 mg table t,delayed release RxNorm: 435059 Take 1 tablet by mout h daily 04/05/2016 07/03/2016 In active - Ref: [id number] metformin 500 mg tablet RxNorm: 226074 Take 1 tablet by mouth daily 04/04/2016 07/02/2016 Inactive - Ref: [id number] Xanax 0.5 mg tablet RxNorm: 674678 1 Tablet(s) PO TID 03/30/2016 09/25/2016 Inactive Xanax 0.5 mg tablet RxNorm: 147186 1 Tablet(s) PO TID 03/23/2016 12/25/2016 Inactive hydrocodone 5 mg-linh taminophen 325 mg tablet RxNorm: 230067 1 Tablet(s) PO Q8 as needed 03/06/2016 04/04/2016 Inactive Cipro 500 mg tablet RxNorm: 354189 1 Tablet(s) PO BID 02/24/2016 03/04/2016 Inactive Miralax 17 gram oral powder packet RxNorm: 885083 1 packet PO every oth er day 01/27/2016 No Stop Date Active hydrocodone 5 mg-linh taminophen 325 mg tablet RxNorm: 492204 1 Tablet(s) PO Q8 as needed 01/27/2016 02/25/2016 Inactive lisinopril 10 mg tablet RxNorm: 115819 1 Tablet(s) PO daily 01/12/2016 09/24/2016 Inactive simvastatin 40 mg ta blet RxNorm: 870519 1 Tablet(s) PO QHS 01/12/2016 11/28/2016 Inactive simvastatin 40 mg ta blet RxNorm: 431019 1 Tablet(s) PO QHS 01/11/2016 01/11/2016 Inactive lisinopril 10 mg tablet RxNorm: 026608 1 Tablet(s) PO daily 01/06/2016 01/11/2016 Inactive simvastatin 40 mg ta blet RxNorm: 110666 1 Tablet(s) PO daily 12/28/2015 01/10/2016 Inactive hydrocodone 5 mg-linh taminophen 325 mg tablet RxNorm: 948459 1 Tablet(s) PO Q8 as needed 12/27/2015 01/26/2016 Inactive Xanax 0.5 mg tablet RxNorm: 848002 1 Tablet(s) PO TID 11/30/2015 03/29/2016 Inactive meclizine 25 mg tablet RxNorm: 283821 1 Tablet(s) PO Q6 PRN TAKE ONE TABLET BY MOUTH EVERY 6 HOURS NEEDED 11/25/2015 02/22/2016 Inactive Tojanie SoloStar 300 unit/mL (1.5 mL) subcutaneous insulin pen RxNorm: 5288881 30 Unit(s) SQ QHS 11/25/2015 05/29/2016 Inactive dosage increase omeprazole 20 mg cap jacquelyn,delayed release RxNorm: 165057 1 Capsule(s) PO daily 10/06/2015 01/26/2016 In active Yovana SoloStar 300 unit/mL (1.5 mL) subcutaneous insulin pen RxNorm: 8114094 35 Unit(s) SQ QHS 08/02/2015 11/24/2015 Inactive dosage increase Vitamin D2 50,000 un it capsule RxNorm: 364946 1 Capsule(s) PO QW 08/02/2015 09/05/2016 Inactive hydrocodone 5 mg-linh taminophen 325 mg tablet RxNorm: 346421 1 Tablet(s) PO Q8 as needed 07/11/2015 12/26/2015 Inactive Xanax 0.5 mg tablet RxNorm: 430472 1 Tablet(s) PO TID 06/30/2015 06/29/2015 Inactive Xanax 0.5 mg tablet RxNorm: 721041 1 Tablet(s) PO TID 06/30/2015 12/25/2015 Inactive hydrocodone 5 mg-linh taminophen 325 mg tablet RxNorm: 251555 1 Tablet(s) PO Q8 as needed 05/06/2015 07/10/2015 Inactive Symbicort 160 mcg-4. 5 mcg/actuation HFA aerosol inhaler RxNorm: 8081165 INH 04/25/2015 No Stop Date Active Levemir FlexTouch 10 0 unit/mL (3 mL) subcutaneous insulin pen RxNorm: 938610 30 Unit(s) SQ QHS 04/25/2015 11/24/2015 Inactive prednisone 20 mg tablet RxNorm: 421763 1 Tablet(s) PO BID 04/25/2015 04/29/2015 Inactive metformin 500 mg tablet RxNorm: 273658 1 Tablet(s) PO daily 04/25/2015 04/03/2016 Inactive amoxicillin 500 mg c apsule RxNorm: 784601 1 Capsule(s) PO TID 04/14/2015 04/13/2015 Inactive amoxicillin 500 mg c apsule RxNorm: 442769 1 Capsule(s) PO TID a nd recommend probiotic tid (otc) 04/14/2015 04/20/2015 Inactive Kenalog 40 mg/mL bartolome pension for injection RxNorm: 3003306 Milliliter(s) Inj 04/12/2015 04/12/2015 In active hydrocodone 5 mg-linh taminophen 325 mg tablet RxNorm: 835318 1 Tablet(s) PO Q8 as needed 03/30/2015 05/05/2015 Inactive Lantus 100 unit/mL s ubcutaneous solution RxNorm: 790943 25 Unit(s) SQ QPM 03/24/2015 04/25/2015 In active meclizine 25 mg tablet RxNorm: 697280 Tablet(s) TAKE ONE TABLET BY MOUTH EVERY 6 HOURS NEEDED 03/08/2015 04/06/2015 Inactive meclizine 25 mg tablet RxNorm: 571930 TAKE ONE TABLET BY MOUTH EVERY 6 HOURS A S NEEDED 02/25/2015 03/03/2015 Inactive Lantus 100 unit/mL s ubcutaneous solution RxNorm: 170069 20 Unit(s) SQ QPM 02/23/2015 03/23/2015 In active Lantus 100 unit/mL s ubcutaneous solution RxNorm: 008240 25 Unit(s) SQ QPM 02/23/2015 02/22/2015 In active hydrocodone 5 mg-linh taminophen 325 mg tablet RxNorm: 833545 1 Tablet(s) PO Q8 as needed 02/17/2015 03/29/2015 Inactive Xanax 0.5 mg tablet RxNorm: 627204 1 Tablet(s) PO TID 02/03/2015 06/29/2015 Inactive Lantus 100 unit/mL s ubcutaneous solution RxNorm: 777798 20 Unit(s) SQ QPM 12/29/2014 02/22/2015 In active Phenergan 12.5 mg re ctal suppository RxNorm: 985408 1 Suppository RTL Q6 PRN 12/23/2014 No Stop Date Active nausea Kenalog 40 mg/mL bartolome pension for injection RxNorm: 9084781 Milliliter(s) Inj 12/23/2014 12/23/2014 In active prednisone 20 mg tablet RxNorm: 875041 2 Tablet(s) PO daily 12/13/2014 12/17/2014 Inactive prednisone 20 mg tablet RxNorm: 842284 2 Tablet(s) PO daily 12/13/2014 12/12/2014 Inactive meclizine 25 mg tablet RxNorm: 094725 1 Tablet(s) PO Q6 PRN 12/09/2014 02/24/2015 Inactive hydrocodone 5 mg-linh taminophen 325 mg tablet RxNorm: 772587 1 Tablet(s) PO Q8 as needed 12/09/2014 02/16/2015 Inactive Vitamin B-12 1,000 m cg/mL oral drops RxNorm: 5314485 1 Milliliter(s) PO d aily No Start Date Active Alphagan P 0.1 % eye drops RxNorm: 426555 1 Drop(s) OPH BID No Start Date Active aspirin 325 mg table t,delayed release RxNorm: 242443 1 Tablet(s) PO daily No Start Date Active Tricor 145 mg tablet RxNorm: 684625 1 Tablet(s) PO daily No Start Date Active vitamin F60-qbwyjne B1 oral liquid RxNorm: 1,000 Microgram(s) PO daily No Start Date Active atenolol 50 mg tablet RxNorm: 013834 1 Tablet(s) PO daily No Start Date Active Protonix 40 mg table t,delayed release RxNorm: 138643 1 Tablet(s) PO daily No Start Date 04/04/2016 Inactive glipizide 10 mg tablet RxNorm: 298499 1 Tablet(s) PO BID No Start Date 03/22/2015 Inactive Lantus 100 unit/mL s ubcutaneous solution RxNorm: 688571 15 Unit(s) SQ QPM No Start Date 12/28/2014 Inactive lisinopril 10 mg tablet RxNorm: 906331 1 Tablet(s) PO daily No Start Date 01/05/2016 Inactive Vitamin D2 50,000 un it capsule RxNorm: 251270 1 Capsule(s) PO QW No Start Date 08/01/2015 Inactive Toujeo SoloStar 300 unit/mL (1.5 mL) subcutaneous insulin pen RxNorm: 5510436 30 Unit(s) SQ QHS No Start Date 08/01/2015 Inactive simvastatin 40 mg ta blet RxNorm: 907197 1 Tablet(s) PO daily No Start Date 12/27/2015 Inactive hydrocodone 5 mg-linh taminophen 325 mg tablet RxNorm: 081132 1 Tablet(s) PO Q8 as needed No Start Date 12/08/2014 Inactive metformin 500 mg tablet RxNorm: 101476 1 Tablet(s) PO daily No Start Date 04/24/2015 Inactive omeprazole 20 mg cap jacquelyn,delayed release RxNorm: 979791 1 Capsule(s) PO daily No Start Date 10/05/2015 Inactive Flomax 0.4 mg capsule RxNorm: 691640 1 Capsule(s) PO daily No Start Date 03/23/2015 Inactive Medication Administered Medication Codes Instruc tions Start Date Status Kenalog 40 mg/mL suspension for injection RxNorm: 2601154 Milliliter 04/12/2015 No longer Active Kenalog 40 mg/mL suspension for injection RxNorm: 0014214 Milliliter 12/23/2014 No longer Active Immunizations Vaccine [...] Code Result Date Vitamin D 25 Oh Qar7210 VITAMIN D, 25 HYDROXY 44.40 ng/mL 12/21/2016 Comp Metabolic Ptt646 NA 131 mEq/L 12/21/2016 Comp Metabolic Hwp161 K 4.2 mEq/L 12/21/2016 Comp Metabolic Wbl137 CL 97 mEq/L 12/21/2016 Comp Metabolic Csw463 CO2 27.0 mEq/L 12/21/2016 Comp Metabolic Dlb628 AN ION GAP 11 12/21/2016 Comp Metabolic Eyx385 GL UCOSE 266 mg/dL 12/21/2016 Comp Metabolic Kkw054 Cr eat 0.9 mg/dL 12/21/2016 Comp Metabolic Bai934 eG FR 88 ml/min/1.73m2 12/21 Comp Metabolic Pgp818 BUN 12 mg/dL 12/21/2016 Comp Metabolic Tcr787 B/ C Ratio 13.6 Ratio 12/21/2016 Comp Metabolic Epo805 CA LCIUM 8.6 mg/dL 12/21/2016 Comp Metabolic Jwl328 AL K PHOS 69 U/L 12/21/2016 Comp Metabolic Yen786 T(SGOT) 15 U/L 12/21/2016 Comp Metabolic Ech679 AL T(SGPT) 14 U/L 12/21/2016 Comp Metabolic Jsh474 BI LI T 0.3 mg/dL 12/21/2016 Comp Metabolic Zor806 AL BUMIN 3.7 g/dL 12/21/2016 Comp Metabolic Nul842 TP RO 5.9 g/dL 12/21/2016 Comp Metabolic Erb100 GL OB 2.2 g/dL 12/21/2016 Comp Metabolic Tsl666 A/ G Ratio 1.7 Ratio 12/21/2016 Comp Metabolic Miq893 Os mo 272 mOsmo 12/21/2016 Cbc With [...] 39.5 % 12/21/2016 Cbc With Differential Ord2 Hand% 6.9 % 12/21/2016 Cbc With Differential Ord2 [...] 2.05 K/ul 12/21/2016 Cbc With Differential Ord2 Hand ABS# 0.4 K/ul 12/21/2016 Cbc With Differential Ord2 Eos ABS# 0.2 K/ul 12/21/2016 Cbc With Differential Ord2 Baso ABS# 0.0 K/ul 12/21/2016 Comp Metabolic Qks021 NA 138 mEq/L 09/03/2016 Comp Metabolic Ubn641 K 4.5 mEq/L 09/03/2016 Comp Metabolic Bry055 CL 102 mEq/L 09/03/2016 Comp Metabolic Brn117 CO2 30.0 mEq/L 09/03/2016 Comp Metabolic Klp566 AN ION GAP 11 09/03/2016 Comp Metabolic Lhx371 GL UCOSE 113 mg/dL 09/03/2016 Comp Metabolic Wsr442 Cr eat 1.0 mg/dL 09/03/2016 Comp Metabolic Deg273 eG FR 81 ml/min/1.73m2 09/03 Comp Metabolic Zlx799 BUN 10 mg/dL 09/03/2016 Comp Metabolic Hks470 B/ C Ratio 10.5 Ratio 09/03/2016 Comp Metabolic Vls120 CA LCIUM 9.1 mg/dL 09/03/2016 Comp Metabolic Xxx250 AL K PHOS 71 U/L 09/03/2016 Comp Metabolic Duc481 T(SGOT) 18 U/L 09/03/2016 Comp Metabolic Vih375 AL T(SGPT) 17 U/L 09/03/2016 Comp Metabolic Aji537 BI LI T 0.6 mg/dL 09/03/2016 Comp Metabolic Oob376 AL BUMIN 4.1 g/dL 09/03/2016 Comp Metabolic Chk281 TP RO 6.4 g/dL 09/03/2016 Comp Metabolic Neb232 GL OB 2.3 g/dL 09/03/2016 Comp Metabolic Myh681 A/ G Ratio 1.8 Ratio 09/03/2016 Comp Metabolic Ahz035 Os mo 276 mOsmo 09/03/2016 Vitamin D 25 Oh Uga5500 VITAMIN D, 25 HYDROXY 28.23 ng/mL 09/03/2016 [...] 101.9 fl 09/03/2016 Cbc With Differential Ord2 Hand% 8.9 % 09/03/2016 Cbc With Differential Ord2 [...] 3.34 K/ul 09/03/2016 Cbc With Differential Ord2 Hand ABS# 0.7 K/ul 09/03/2016 Cbc With Differential Ord2 Eos ABS# 0.4 K/ul 09/03/2016 Cbc With Differential Ord2 Baso ABS# 0.0 K/ul 09/03/2016 Lipid Ord30 CHOL 120 mg/dL 09/03/2016 Lipid Ord30 HDL 33.0 mg/dl 09/03/2016 Lipid Ord30 TRIG 161 mg/dL 09/03/2016 Lipid Ord30 LDL 55 mg/dL 09/03/2016 Lipid Ord30 C/HDL 3.6 Ratio 09/03/2016 %Hba1C Gfp072 % HbA1c 27825-1 7.5 % 09/03/2016 %Hba1C Cuq290 Gluc Ave 169 mg/dL 09/03/2016 Tsh Ord6 hTSH II 1.50 uIU/mL 05/23/2016 %Hba1C Ien876 % HbA1c 07855-0 7.6 % 05/23/2016 %Hba1C Fcl307 Gluc Ave 171 mg/dL 05/23/2016 Comp Metabolic Mmh548 NA 135 mEq/L 05/23/2016 Comp Metabolic Uzn993 K 4.4 mEq/L 05/23/2016 Comp Metabolic Umn851 CL 99 mEq/L 05/23/2016 Comp Metabolic Cpr342 CO2 28.0 mEq/L 05/23/2016 Comp Metabolic Hxl164 AN ION GAP 12 05/23/2016 Comp Metabolic Ius055 GL UCOSE 257 mg/dL 05/23/2016 Comp Metabolic Onn661 Cr eat 0.8 mg/dL 05/23/2016 Comp Metabolic Crh663 eG FR 95 ml/min/1.73m2 05/23 Comp Metabolic Ecc600 BUN 11 mg/dL 05/23/2016 Comp Metabolic Fgs926 B/ C Ratio 13.3 Ratio 05/23/2016 Comp Metabolic Lcf174 CA LCIUM 9.0 mg/dL 05/23/2016 Comp Metabolic Rdz782 AL K PHOS 82 U/L 05/23/2016 Comp Metabolic Vdt766 T(SGOT) 21 U/L 05/23/2016 Comp Metabolic Jla771 AL T(SGPT) 20 U/L 05/23/2016 Comp Metabolic Lfx813 BI LI T 0.3 mg/dL 05/23/2016 Comp Metabolic Our848 AL BUMIN 4.0 g/dL 05/23/2016 Comp Metabolic Xfh849 TP RO 6.4 g/dL 05/23/2016 Comp Metabolic Fmz876 GL OB 2.4 g/dL 05/23/2016 Comp Metabolic Nfx116 A/ G Ratio 1.6 Ratio 05/23/2016 Comp Metabolic Lyn572 Os mo 278 mOsmo 05/23/2016 Cbc With [...] 34.5 pg 05/23/2016 Cbc With Differential Ord2 Hand% 6.1 % 05/23/2016 Cbc With Differential Ord2 [...] 2.38 K/ul 05/23/2016 Cbc With Differential Ord2 Hand ABS# 0.4 K/ul 05/23/2016 Cbc With Differential Ord2 Eos ABS# 0.2 K/ul 05/23/2016 Cbc With Differential Ord2 Baso ABS# 0.0 K/ul 05/23/2016 B12 Cgv606 B12 597.00 pg/ml 05/23/2016 Metabolic Ord15 NA [...] 0.92 uIU/mL 07/29/2015 Vitamin D 25 Oh Ojx3727 VITAMIN D, 25 HYDROXY 26.93 ng/mL 07/29/2015 %Hba1C Hap446 % HbA1c 36031-5 8.8 % 07/29/2015 %Hba1C Epe533 Gluc Ave 206 mg/dL 07/29/2015 Cbc With [...] Ord2 RDW 14.9 % 07/29/2015 Comp Metabolic Azt322 NA 138 mEq/L 07/29/2015 Comp Metabolic Wep902 K 4.4 mEq/L 07/29/2015 Comp Metabolic Lum634 CL 102 mEq/L 07/29/2015 Comp Metabolic Tyv459 CO2 28.0 mEq/L 07/29/2015 Comp Metabolic Hth791 AN ION GAP 12 07/29/2015 Comp Metabolic Mwd002 GL UCOSE 261 mg/dL 07/29/2015 Comp Metabolic Zoh271 Cr eat 1.0 mg/dL 07/29/2015 Comp Metabolic Knw252 eG FR 77 ml/min/1.73m2 07/29 Comp Metabolic Zhf083 BUN 13 mg/dL 07/29/2015 Comp Metabolic Gij735 B/ C Ratio 13.0 Ratio 07/29/2015 Comp Metabolic Clm457 CA LCIUM 9.1 mg/dL 07/29/2015 Comp Metabolic Yie302 AL K PHOS 64 U/L 07/29/2015 Comp Metabolic Hwq904 T(SGOT) 20 U/L 07/29/2015 Comp Metabolic Vly531 AL T(SGPT) 22 U/L 07/29/2015 Comp Metabolic Hdg942 BI LI T 0.4 mg/dL 07/29/2015 Comp Metabolic Qvl123 AL BUMIN 4.0 g/dL 07/29/2015 Comp Metabolic Apz902 TP RO 6.1 g/dL 07/29/2015 Comp Metabolic Hbo979 GL OB 2.1 g/dL 07/29/2015 Comp Metabolic Hra446 A/ G Ratio 1.9 Ratio 07/29/2015 Comp Metabolic Ijd522 Os mo 285 mOsmo 07/29/2015 Cbc With [...] Ord2 RDW 13.1 % 05/06/2015 Comp Metabolic Ibu418 NA 134 mEq/L 05/06/2015 Comp Metabolic Xje010 K 4.4 mEq/L 05/06/2015 Comp Metabolic Elv037 CL 98 mEq/L 05/06/2015 Comp Metabolic Fiq146 CO2 29.0 mEq/L 05/06/2015 Comp Metabolic Nsw340 AN ION GAP 11 05/06/2015 Comp Metabolic Ryq617 GL UCOSE 321 mg/dL 05/06/2015 Comp Metabolic Sdu387 Cr eat 1.0 mg/dL 05/06/2015 Comp Metabolic Ypd034 eG FR 78 ml/min/1.73m2 05/06 Comp Metabolic Xwj638 BUN 20 mg/dL 05/06/2015 Comp Metabolic Lql663 B/ C Ratio 20.4 Ratio 05/06/2015 Comp Metabolic Hcn195 CA LCIUM 9.5 mg/dL 05/06/2015 Comp Metabolic Xng025 AL K PHOS 62 U/L 05/06/2015 Comp Metabolic Hbc963 T(SGOT) 21 U/L 05/06/2015 Comp Metabolic Jmf137 AL T(SGPT) 37 U/L 05/06/2015 Comp Metabolic Fop907 BI LI T 0.4 mg/dL 05/06/2015 Comp Metabolic Ths016 AL BUMIN 3.8 g/dL 05/06/2015 Comp Metabolic Hoy690 TP RO 6.1 g/dL 05/06/2015 Comp Metabolic Dws718 GL OB 2.3 g/dL 05/06/2015 Comp Metabolic Vpc617 A/ G Ratio 1.7 Ratio 05/06/2015 Comp Metabolic Tpy167 Os mo 283 mOsmo 05/06/2015 Tsh Ord6 hTSH II 1.65 uIU/mL 02/18/2015 B12 Tmm183 B12 605.00 pg/ml 02/18/2015 %Hba1C Pyl750 % HbA1c 93643-2 8.3 % 02/18/2015 %Hba1C Ctv723 Gluc Ave 192 mg/dL 02/18/2015 Cbc With [...] Ord2 RDW 13.9 % 02/17/2015 Comp Metabolic Mbe450 NA 137 mEq/L 02/17/2015 Comp Metabolic Nfk213 K 4.4 mEq/L 02/17/2015 Comp Metabolic Ffq142 CL 100 mEq/L 02/17/2015 Comp Metabolic Aft305 CO2 31.0 mEq/L 02/17/2015 Comp Metabolic Wfs919 AN ION GAP 10 02/17/2015 Comp Metabolic Kiz472 GL UCOSE 307 mg/dL 02/17/2015 Comp Metabolic Ktj971 Cr eat 1.0 mg/dL 02/17/2015 Comp Metabolic Rvl682 eG FR 74 ml/min/1.73m2 02/17 Comp Metabolic Sno837 BUN 22 mg/dL 02/17/2015 Comp Metabolic Soo562 B/ C Ratio 21.4 Ratio 02/17/2015 Comp Metabolic Oce280 CA LCIUM 9.5 mg/dL 02/17/2015 Comp Metabolic Vsk359 AL K PHOS 78 U/L 02/17/2015 Comp Metabolic Lxu322 T(SGOT) 18 U/L 02/17/2015 Comp Metabolic Ptm022 AL T(SGPT) 32 U/L 02/17/2015 Comp Metabolic Voi215 BI LI T 0.5 mg/dL 02/17/2015 Comp Metabolic Xpk818 AL BUMIN 4.3 g/dL 02/17/2015 Comp Metabolic Ylz568 TP RO 6.7 g/dL 02/17/2015 Comp Metabolic Sbm352 GL OB 2.4 g/dL 02/17/2015 Comp Metabolic Vmd090 A/ G Ratio 1.8 Ratio 02/17/2015 Comp Metabolic Htv090 Os mo 289 mOsmo 02/17/2015 Review of [...] cough Respiratory daytime hypersomnolence 03/24/2015 Respiratory dyspnea /1 10/2014 Gastrointestinal No abdominal pain 03/24/2015 Gastrointestinal [...] masses 01/21/2017 None Full Exam - General 1995 [...] inspection of skin Location: face 03/07/2015 on zoroastrian, cheeks,actinic keratosis with irritation on left cheek - left zoroastrian - croptherapy on these two lesions - [...] Date ADMIN INFLUENZA VIRU S VAC CPT-4: E1397Efxzslh 05/22/2016 FLU VACC 4 TELLY 3 YRS PLUS IM Formatting Model/CDA Sections, Assigned to/Angela Clemons SNOMED CT: 67778467 CPT-4: 29178Vqxlaey 05/22/2016 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 3-[address]: 033228651 CPT-4: Z9077Ktvzlun 11/25/2015 URINALYSIS NONAUTO W /O SCOPE CPT-4: 09681Alujusp 05/09/2015 TRIAMCINOLONE ACET I [place] NOS CPT-4: B5802Ukuliru 04/12/2015 DESTRUCT PREMALG LES ION CPT-4: 60435Fllzsvs 03/07/2015 DESTRUCT PREMALG LES 2-14 CPT-4: 09959Kqdcwjt 03/07/2015 REMOVE IMPACTED EAR WAX UNI CPT-4: 32365Tnlvwrc 12/31/2014 THER/PROPH/DIAG INJ SC/IM CPT-4: 81173Doiaurz 12/23/2014 TRIAMCINOLONE ACET I [place] NOS CPT-4: N2076Ygxrnls 12/23/2014 Vital Signs Date Vital 01/21/2017 Blood Pressure 1: 160/68 Code: 8480-6 BMI: 21.3 Code: 48160-8 Heart Rate 1: 62 bpm Height: 5'11" SpO2: 96% Weight: 153 lbs 12/20/2016 Blood Pressure 1: 124/66 Code: 8480-6 BMI: 21.5 Code: 89220-0 Height: 5'11" Weight: 154 lbs 08/23/2016 Blood Pressure 1: 142/52 Code: 8480-6 BMI: 21.2 Code: 50339-7 Heart Rate 1: 54 bpm Height: 5'11" SpO2: 96% Weight: 152 lbs 05/22/2016 Blood Pressure 1: 130/76 Code: 8480-6 BMI: 21.5 Code: 41329-2 Heart Rate 1: 78 bpm Height: 5'11" SpO2: 92% Weight: 154 lbs 02/24/2016 Blood Pressure 1: 128/80 Code: 8480-6 BMI: 21.2 Code: 48684-0 Heart Rate 1: 74 bpm Height: 5'11" SpO2: 96% Weight: 152 lbs 01/27/2016 Blood Pressure 1: 144/60 Code: 8480-6 BMI: 21.2 Code: 07731-1 Heart Rate 1: 74 bpm Height: 5'11" SpO2: 97% Weight: 152 lbs 11/25/2015 Blood Pressure 1: 110/52 Code: 8480-6 BMI: 21.9 Code: 12044-9 Heart Rate 1: 65 bpm Height: 5'11" SpO2: 92% Weight: 157 lbs 07/28/2015 Blood Pressure 1: 138/62 Code: 8480-6 BMI: 21.8 Code: 37561-9 Heart Rate 1: 63 bpm Height: 5'11" SpO2: 91% Weight: 156 lbs 05/26/2015 Blood Pressure 1: 120/58 Code: 8480-6 BMI: 21.5 Code: 25991-4 Heart Rate 1: 99 bpm Height: 5'11" SpO2: 96% Weight: 154 lbs 05/06/2015 Blood Pressure 1: 120/58 Code: 8480-6 BMI: 21.2 Code: 71150-9 Heart Rate 1: 66 bpm Height: 5'11" SpO2: 96% Weight: 152 lbs 04/25/2015 Blood Pressure 1: 136/62 Code: 8480-6 BMI: 21.2 Code: 39802-2 Heart Rate 1: 63 bpm Height: 5'11" SpO2: 97% Weight: 152 lbs 04/12/2015 Blood Pressure 1: 160/58 Code: 8480-6 BMI: 21.6 Code: 94362-0 Heart Rate 1: 62 bpm Height: 5'11" Weight: 155 lbs 03/24/2015 Blood Pressure 1: 138/68 Code: 8480-6 BMI: 22.0 Code: 37409-2 Heart Rate 1: 65 bpm Height: 5'11" SpO2: 96% Weight: 158 lbs 03/07/2015 Blood Pressure 1: 116/52 Code: 8480-6 BMI: 22.2 Code: 38757-3 Heart Rate 1: 64 bpm Height: 5'11" SpO2: 97% Weight: 159 lbs 02/17/2015 Blood Pressure 1: 148/58 Code: 8480-6 BMI: 21.3 Code: 31027-7 Heart Rate 1: 63 bpm Height: 5'11" SpO2: 97% Weight: 153 lbs 12/31/2014 Blood Pressure 1: 100/60 Code: 8480-6 BMI: 21.8 Code: 05046-3 Heart Rate 1: 68 bpm Height: 5'11" Weight: 156 lbs 12/23/2014 Blood Pressure 1: 148/64 Code: 8480-6 BMI: 21.9 Code: 99046-0 Heart Rate 1: 64 bpm Height: 5'11" [...] Encounters Encounter Performer Loca tion Codes Date [id number] EST. P ATIENT, LEVEL IV Diagnosis: Slow transit constipation[ICD10: K59.01] Diagnosis: Gastro-esophageal reflux disease without esophagitis[ICD10: K21.9] Diagnosis: Essential (primary) hypertension[ICD10: I10] Karmen Ash MD, [facility] CPT-4: 79992 01/21/2017 ([id number]) 35209 EST. P ATIENT, LEVEL IV Diagnosis: Type 2 diabetes mellitus with hyperglycemia[ICD10: E11.65] Diagnosis: Vitamin D deficiency, unspecified[ICD10: E55.9] Diagnosis: Essential (primary) hypertension[ICD10: I10] Diagnosis: Chronic obstructive pulmonary disease, unspecified[ICD10: J44.9] Karmen Ash MD, [facility] CPT-4: 99074 12/20/2016 ([id number]) 87688 EST. P ATIENT, LEVEL IV Diagnosis: Type 2 diabetes mellitus with hyperglycemia[ICD10: E11.65] Diagnosis: Essential (primary) hypertension[ICD10: I10] Diagnosis: Mixed hyperlipidemia[ICD10: E78.2] Diagnosis: Vitamin D deficiency, unspecified[ICD10: E55.9] Karmen Ash MD, [facility] CPT-4: 18692 08/23/2016 ([id number]) 12486 EST. P ATIENT, LEVEL IV Diagnosis: Type 2 diabetes mellitus with hyperglycemia[ICD10: E11.65] Diagnosis: Essential (primary) hypertension[ICD10: I10] Diagnosis: Chronic obstructive pulmonary disease, unspecified[ICD10: J44.9] Karmen Ash MD, [facility] CPT-4: 59287 05/22/2016 ([id number] 60015 EST. P ATIENT, LEVEL III Diagnosis: Dysuria[ICD10: R30.0] Diagnosis: Essential (primary) hypertension[ICD10: I10] Karmen Ash MD, [facility] CPT-4: 05963 02/24/2016 ([id number]) 52781 EST. P ATIENT, LEVEL IV Diagnosis: Gastro-esophageal reflux disease without esophagitis[ICD10: K21.9] Diagnosis: Slow transit constipation[ICD10: K59.01] Diagnosis: Type 2 diabetes mellitus with hyperglycemia[ICD10: E11.65] Karmen Ash MD, [facility] CPT-4: 30624 01/27/2016 ([id number]) 62409 EST. P ATIENT, LEVEL IV Diagnosis: Essential (primary) hypertension[ICD10: I10] Diagnosis: Type 2 diabetes mellitus with hyperglycemia[ICD10: E11.65] Diagnosis: Vitamin D deficiency, unspecified[ICD10: E55.9] Diagnosis: Chronic obstructive pulmonary disease, unspecified[ICD10: J44.9] Diagnosis: Mixed hyperlipidemia[ICD10: E78.2] Diagnosis: Tobacco use[ICD10: Z72.0] Karmen Ash MD, [facility] CPT- 4: 61195 11/25/2015 ([id number]) 14306 EST. P ATIENT, LEVEL IV Diagnosis: Type 2 diabetes mellitus with hyperglycemia[ICD10: E11.65] Diagnosis: Essential (primary) hypertension[ICD10: I10] Diagnosis: Vitamin D deficiency, unspecified[ICD10: E55.9] Karmen Ash MD, [facility] CPT-4: 93801 07/28/2015 ([id number]) 69192 EST. P ATIENT, LEVEL III Diagnosis: Type 2 diabetes mellitus with hyperglycemia[ICD10: E11.65] Diagnosis: Essential (primary) hypertension[ICD10: I10] Violeta Ash MD, [facility] CPT-4: 21362 05/26/2015 ([id number]) 42235 EST. P ATIENT, LEVEL III Diagnosis: DIABETES TYPE II[ICD9: 250.00] Diagnosis: COPD (chronic obstructive pulmonary disease)[ICD9: 496] Diagnosis: ESSENTIAL HYPERTENSION[ICD9: 401.9] Diagnosis: Cough[ICD9: 786.2] Violeta Ash MD, [facility] CPT-4: 71083 05/06/2015 ([id number]) 74686 EST. P ATIENT, LEVEL III Diagnosis: COPD (chronic obstructive pulmonary disease)[ICD9: 496] Diagnosis: DIABETES TYPE II[ICD9: 250.00] Diagnosis: Muscle ache[ICD9: 729.1] Karmen Ash MD, [facility] CPT- 4: 03652 04/25/2015 ([id number]) 07395 EST. P ATIENT, LEVEL III Diagnosis: ACTINIC KERATOSIS[ICD9: 702.0] Diagnosis: COPD (chronic obstructive pulmonary disease)[ICD9: 496] Diagnosis: DIABETES TYPE II[ICD9: 250.00] Diagnosis: ACUTE URI[ICD9: 465.9] Violeta Ash MD, [facility] CPT-4: 67405 04/12/2015 ([id number]) 02396 EST. P ATIENT, LEVEL III Diagnosis: DIABETES TYPE II[ICD9: 250.00] Violeta Ash MD, [facility] CPT-4: 34174 03/24/2015 ([id number]) 23850 EST. P ATIENT, LEVEL IV Diagnosis: DIABETES TYPE II[ICD9: 250.00] Diagnosis: Hypoglycemia[ICD9: 251.2] Diagnosis: Skin texture changes[ICD9: 782.8] Violeta Ash MD, [facility] CPT-4: 65673 03/07/2015 ([id number]) 69668 EST. P ATIENT, LEVEL IV Diagnosis: COPD (chronic obstructive pulmonary disease)[ICD9: 496] Diagnosis: Fatigue[ICD9: 780.79] Diagnosis: Insulin dependent diabetes mellitus[ICD9: 250.00] Diagnosis: Unsteady gait[ICD9: 781.2] [facility] CPT-4: 12355 02/17/2015 ([id number]) 71319 EST. P ATIENT, LEVEL IV Diagnosis: BPPV (benign paroxysmal positional vertigo)[ICD9: 386.11] Diagnosis: Impacted cerumen[ICD9: 380.4] Diagnosis: ESSENTIAL HYPERTENSION[ICD9: 401.9] Diagnosis: Insulin dependent diabetes mellitus[ICD9: 250.00] [facility] CPT-4: 72852 12/23/2014 ([id number]) OFFICE VISI T, [facility] - LEVEL 4 Diagnosis: Insulin dependent diabetes mellitus[ICD9: 250.00] Diagnosis: BPPV (benign paroxysmal positional vertigo)[ICD9: 386.11] Diagnosis: COPD (chronic obstructive pulmonary disease)[ICD9: 496] Diagnosis: Tobacco abuse[ICD9: 305.1] Diagnosis: Osteoarthritis[ICD9: 715.90] [facility] CPT- 4: 42821 12/09/2014 Plan of Care Planned Activity Notes [...] at home-follow up in 1 month 01/21/2017 Patient Education: Patient Medication Summary Completed 01/21/2017 Patient Education: Smoking and Tobacco Addiction Completed 01/21/2017 Patient Education: Hypertension Completed 01/21/2017 Care Plan: Referral Order SNOMED-CT : [id number] Pending 01/21/2017 Visit Plan: Diabetes Mellitus - [...] changes. 12/20/2016 Appointment: Karmen Espinal WPtel: [phone] [phone] (30 min) Complex 12/20/2016 Patient Education: Patient Medication Summary Completed 12/20/2016 Patient Education: Smoking and Tobacco Addiction Completed 12/20/2016 Patient Education: Hypertension Completed 12/20/2016 Appointment: Karmen Espinal WPtel: [phone] [phone] (30 min) Complex 09/06/2016 Visit Plan: [...] level 08/23/2016 Appointment: Karmen Espinal WPtel: [phone] [phone] (30 min) Complex 08/23/2016 Patient Education: [...] changes. 05/22/2016 Appointment: Karmen Espinal WPtel: [phone] [phone] (30 min) Complex 05/22/2016 Patient Education: Patient Medication Summary Completed 05/22/2016 Patient Education: Smoking and Tobacco Addiction Completed 05/22/2016 Care Plan: Cbc With Differential Ordered 05/22/2016 Care Plan: %Hba1C LOIN C : 41969-7 Ordered 05/22/2016 Care Plan: Tsh Ordered 05/22/2016 [...] with update 02/24/2016 Appointment: Karmen Espinal WPtel: [phone] (30 min) Complex 02/24/2016 Patient Education: Patient [...] this regimen. 01/27/2016 Appointment: Karm[facility] Espinal WPtel[phone] [facility] 01/27/2016 Patient Education: Patient Medication Summary [...] use medication to assist cess ation.[facility] - pt has been counseled about [...] POTENTIAL SIDE EFFECTS AND WORSENING OF SYMPTOMS. [id number] SIMVASTATIN X 2 WEEKS AND CALL WITH [...] Care Plan: COMPLETE CBC AUTOMATED LOINC : 18643-0 Ordered 03/24/2015 Visit Plan: Diabetes Mellitus - [...] for removal. 03/07/2015 Appointment: Violeta Ash WPtel[phone] ([facility] Moderate 03/07/2015 Patient Education: [...] Care Plan: COMPLETE CBC AUTOMATED LOINC : 74621-3 Ordered 12/23/2014 Visit Plan: BPPV - Benign [...] next appt 2014 Appointment: Karmen Espinal WPtel[phone] [place] New Patient 12/09/2014 Patient [...] POTENTIAL SIDE EFFECTS AND WORSENING OF SYMPTOMS. Zdvtntzo-hlnwdomh-[id number] SIMVASTATIN X 2 WEEKS AND CALL WITH [...]
--- OUTSIDE RECORDS SUMMARY | 2020-03-29 08:38 | XMS REPORT | CCD ---
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 Name Role Phone PP Unavailable CCM Unavailable Summary Purpose Interface Exchange Insurance Providers Payer name Policy type / Coverage type Covered alliance party ID Effective Begin Date Effective End Date WPS Medicare Part B Medicare Part B [id number] Unknown Unknown [employer] Co Medicar e Part B [id number] Unknown Unkn own Family history Father Diagnosis Age At Onset Cancer Unknown Mother Diagnosis Age At Onset Cancer Unknown Social History Social History Element Codes Description Effective Dates Marital status Unknown M arried 12/09/2014 Employment Unknown Retir ed 12/09/[address]: 25361317 Currently smokes tobacco 12/09/2014 Number of years using tobacco Unknown > 50 12/09/2014 Number of cigarettes/day Unknown 30 (Pack and a half) 12/09/[address]: 831775796 Never drinks alcohol 12/09/2014 Allergies, Adverse Reactions, [...] cypiona te 200 mg/mL intramuscular oil RxNorm: 0138940 Milliliter(s) IM 12/02/2018 12/02/2018 In active testosterone cypiona te 200 mg/mL intramuscular oil RxNorm: 7736767 Milliliter(s) IM 11/18/2018 11/18/2018 In active hydrocodone 5 mg-linh taminophen 325 mg tablet RxNorm: 943521 1 Tablet(s) PO Q6-8H as needed 11/13/2018 12/07/2018 Active testosterone cypiona te 200 mg/mL intramuscular oil RxNorm: 4304962 1/2 Milliliter(s) IM [id number] 11/04/2018 03/03/2019 Active testosterone cypiona te 200 mg/mL intramuscular oil RxNorm: 6212407 Milliliter(s) IM 11/04/2018 11/04/2018 In active nicotine 21 mg/24 hr daily transdermal patch RxNorm: 764546 1 TD daily 10/31/2018 10/30/2018 In active nicotine 21 mg/24 hr daily transdermal patch RxNorm: 177369 1 TD daily 10/31/2018 11/29/2018 In active meclizine 25 mg tablet RxNorm: 681175 1 Tablet(s) PO Q6 PRN TAKE ONE TABLET BY MOUTH EVERY 6 HOURS NEEDED 10/17/2018 01/14/2019 Active hydrocodone 5 mg-linh taminophen 325 mg tablet RxNorm: 552355 1 Tablet(s) PO Q6-8H as needed 10/17/2018 11/10/2018 Inactive metformin 500 mg tablet RxNorm: 750526 Tablet(s) TAKE 1 TABLET BY MOUTH DAILY 10/15/2018 10/09/2019 Ac tive lisinopril 10 mg tablet RxNorm: 330806 TAKE 1 TABLET BY MOUTH TWO TIMES DAILY 10/15/2018 10/09/2019 Ac tive - First Attempt Ref: [id number] testosterone cypiona te 200 mg/mL intramuscular oil RxNorm: 8270856 Milliliter(s) IM 10/14/2018 10/14/2018 In active Xanax 0.5 mg tablet RxNorm: 748602 1 Tablet(s) PO TID 10/03/2018 11/30/2018 Inactive testosterone cypiona te 200 mg/mL intramuscular oil RxNorm: 7568329 1/2 Milliliter(s) IM weekly 10/03/2018 11/03/2018 Inactive testosterone cypiona te 200 mg/mL intramuscular oil RxNorm: 3835991 Milliliter(s) IM 10/03/2018 10/03/2018 In active testosterone cypiona te 200 mg/mL intramuscular oil RxNorm: 3041649 Milliliter(s) IM 09/23/2018 09/23/2018 In active hydrocodone 5 mg-linh taminophen 325 mg tablet RxNorm: 638667 1 Tablet(s) PO Q6-8H as needed 09/22/2018 10/16/2018 Inactive testosterone cypiona te 200 mg/mL intramuscular oil RxNorm: 5643822 1/2 Milliliter(s) IM 09/02/2018 09/02/2018 Inactive testosterone enantha te 200 mg/mL intramuscular oil RxNorm: 006643 Milliliter(s) IM 08/21/2018 08/21/2018 In active hydrocodone 5 mg-linh taminophen 325 mg tablet RxNorm: 495614 1 Tablet(s) PO Q6-8H as needed 08/21/2018 09/14/2018 Inactive testosterone cypiona te 200 mg/mL intramuscular oil RxNorm: 1531636 Milliliter(s) IM 08/08/2018 08/08/2018 In active testosterone cypiona te 200 mg/mL intramuscular oil RxNorm: 6505523 1/2 Milliliter(s) IM 07/28/2018 07/28/2018 Inactive hydrocodone 5 mg-linh taminophen 325 mg tablet RxNorm: 908544 1 Tablet(s) PO Q6-8H as needed 07/21/2018 08/14/2018 Inactive testosterone cypiona te 200 mg/mL intramuscular oil RxNorm: 016190 Milliliter(s) IM 07/16/2018 07/16/2018 In active testosterone cypiona te 200 mg/mL intramuscular oil RxNorm: 257771 Milliliter(s) IM 07/02/2018 07/02/2018 In active Xanax 0.5 mg tablet RxNorm: 132085 1 Tablet(s) PO TID 06/27/2018 08/24/2018 Inactive testosterone cypiona te 200 mg/mL intramuscular oil RxNorm: 583092 Milliliter(s) IM 06/24/2018 06/24/2018 In active hydrocodone 5 mg-linh taminophen 325 mg tablet RxNorm: 219074 1 Tablet(s) PO Q6-8H as needed 06/23/2018 07/17/2018 Inactive testosterone cypiona te 200 mg/mL intramuscular oil RxNorm: 791763 Milliliter(s) IM 06/13/2018 06/13/2018 In active testosterone cypiona te 200 mg/mL intramuscular oil RxNorm: 099109 Milliliter(s) IM 06/05/2018 06/05/2018 In active testosterone cypiona te 200 mg/mL intramuscular oil RxNorm: 8375844 1/2 Milliliter(s) IM weekly 05/30/2018 09/26/2018 Inactive testosterone cypiona te 200 mg/mL intramuscular oil RxNorm: 312880 Milliliter(s) IM 05/30/2018 05/30/2018 In active testosterone cypiona te 200 mg/mL intramuscular oil RxNorm: 186486 Milliliter(s) IM 05/22/2018 05/22/2018 In active hydrocodone 5 mg-linh taminophen 325 mg tablet RxNorm: 709635 1 Tablet(s) PO Q6-8H as needed 05/20/2018 06/13/2018 Inactive testosterone cypiona te 200 mg/mL intramuscular oil RxNorm: 023746 1/2 Milliliter(s) IM 05/12/2018 05/12/2018 Inactive testosterone cypiona te 200 mg/mL intramuscular oil RxNorm: 506757 Milliliter(s) IM 05/02/2018 05/02/2018 In active testosterone cypiona te 200 mg/mL intramuscular oil RxNorm: 788081 1/2 Milliliter(s) IM weekly 04/24/2018 05/29/2018 Inactive testosterone cypiona te 200 mg/mL intramuscular oil RxNorm: 529197 0.5 Milliliter(s) IM 04/24/2018 04/24/2018 Inactive hydrocodone 5 mg-linh taminophen 325 mg tablet RxNorm: 619820 1 Tablet(s) PO Q6-8H as needed 04/22/2018 05/16/2018 Inactive testosterone cypiona te 200 mg/mL intramuscular oil RxNorm: 580840 1/2 Milliliter(s) IM 04/17/2018 04/17/2018 Inactive testosterone cypiona te 200 mg/mL intramuscular oil RxNorm: 162107 1/2 Milliliter(s) IM weekly 04/16/2018 04/23/2018 Inactive Jardiance 10 mg tablet RxNorm: 6498848 1 Tablet(s) PO daily 04/04/2018 12/29/2018 Active Protonix 40 mg table t,delayed release RxNorm: 028356 1 Tablet(s) PO daily TAKE 1 TABLET BY MOUTH DAILY 04/04/2018 03/29/2019 Active - Ref: [id number] testosterone cypiona te 200 mg/mL intramuscular oil RxNorm: 554024 1 Milliliter(s) IM monthly 04/04/2018 04/15/2018 Inactive hydrocodone 5 mg-linh taminophen 325 mg tablet RxNorm: 243366 1 Tablet(s) PO Q6-8H as needed 03/19/2018 04/12/2018 Inactive Flomax 0.4 mg capsule RxNorm: 696126 1 Capsule(s) PO daily 03/10/2018 03/04/2019 Active Urecholine 25 mg tablet RxNorm: 830309 1 Tablet(s) PO BID 03/10/2018 07/07/2018 Inactive ketorolac 60 mg/2 mL intramuscular solution RxNorm: 6141238 Milliliter(s) IM 03/07/2018 03/07/2018 In active metformin 500 mg tablet RxNorm: 488257 Tablet(s) TAKE 1 TABLET BY MOUTH DAILY 02/20/2018 02/13/2019 Ac tive 1 q am and 1/2 tab q pm hydrocodone 5 mg-linh taminophen 325 mg tablet RxNorm: 099582 1 Tablet(s) PO Q6-8H as needed 02/20/2018 03/16/2018 Inactive Kenalog 40 mg/mL bartolome pension for injection RxNorm: 7181086 1.5 Milliliter(s) In j 01/30/2018 01/30/2018 In active hydrocodone 5 mg-linh taminophen 325 mg tablet RxNorm: 575745 1 Tablet(s) PO Q6-8H as needed 01/23/2018 02/16/2018 Inactive Urecholine 25 mg tablet RxNorm: 328777 1 Tablet(s) PO BID 01/22/2018 03/09/2018 Inactive Flomax 0.4 mg capsule RxNorm: 785977 1 Capsule(s) PO daily 01/22/2018 03/09/2018 Inactive Flomax 0.4 mg capsule RxNorm: 898715 1 Capsule(s) PO daily 01/22/2018 01/21/2018 Inactive Urecholine 25 mg tablet RxNorm: 611392 1 Tablet(s) PO BID 01/22/2018 01/21/2018 Inactive testosterone cypiona te 200 mg/mL intramuscular oil RxNorm: 564495 Milliliter(s) IM 01/17/2018 01/17/2018 In active testosterone cypiona te 200 mg/mL intramuscular oil RxNorm: 840275 1 Milliliter(s) IM monthly 01/17/2018 04/03/2018 Inactive doxycycline hyclate 100 mg tablet RxNorm: 256989 1 Tablet(s) PO BID 01/14/2018 01/23/2018 Inactive lisinopril 10 mg tablet RxNorm: 368472 TAKE 1 TABLET BY MOUTH TWO TIMES DAILY 01/14/2018 10/14/2018 In active - First Attempt Ref: [id number] Xanax 0.5 mg tablet RxNorm: 241649 1 Tablet(s) PO TID 01/08/2018 04/06/2018 Inactive nystatin 100,000 uni t/mL oral suspension RxNorm: 157390 4 Milliliter(s) PO QI D Swish and swallow 01/08/2018 01/07/2018 Inactive nystatin 100,000 uni t/mL oral suspension RxNorm: 995102 4 Milliliter(s) PO QI D Swish and swallow 01/08/2018 01/12/2018 Inactive simvastatin 40 mg ta blet RxNorm: 625222 TAKE 1 TABLET BY MOUT H DAILY AT BEDTIME 12/30/2017 12/24/2018 Ac tive - First Attempt Ref: [id number] metformin 500 mg tablet RxNorm: 141479 TAKE 1 TABLET BY MOUTH DAILY 12/30/2017 02/19/2018 Inactive - First Attempt Ref: [id number] hydrocodone 5 mg-linh taminophen 325 mg tablet RxNorm: 178787 1 Tablet(s) PO Q6-8H as needed 12/25/2017 01/18/2018 Inactive Protonix 40 mg table t,delayed release RxNorm: 757058 Tablet(s) TAKE 1 TABL ET BY MOUTH DAILY 11/20/2017 04/03/2018 Inactive - Ref: [id number] Linzess 72 mcg capsule RxNorm: 4181161 1 Capsule(s) PO daily 11/19/2017 No Stop Date Active hydrocodone 5 mg-linh taminophen 325 mg tablet RxNorm: 941127 1 Tablet(s) PO Q6-8H as needed 11/19/2017 12/13/2017 Inactive hydrocodone 5 mg-linh taminophen 325 mg tablet RxNorm: 220867 1 Tablet(s) PO Q6-8H as needed 10/28/2017 11/18/2017 Inactive Xanax 0.5 mg tablet RxNorm: 028706 1 Tablet(s) PO TID 10/25/2017 12/22/2017 Inactive Xanax 0.5 mg tablet RxNorm: 961659 TAKE ONE TABLET BY MOUTH THREE TIMES A D AY 10/24/2017 12/01/2018 In active hydrocodone 5 mg-linh taminophen 325 mg tablet RxNorm: 640452 1 Tablet(s) PO Q6-8H as needed 09/30/2017 10/24/2017 Inactive Protonix 40 mg table t,delayed release RxNorm: 705292 TAKE 1 TABLET BY MOUT H DAILY 09/16/2017 11/19/2017 In active - Ref: [id number] Yovana Perkins 300 unit/mL (1.5 mL) subcutaneous insulin pen RxNorm: 3419133 35 Unit(s) SQ QHS 08/30/2017 No Stop Date Active dosage increase hydrocodone 5 mg-linh taminophen 325 mg tablet RxNorm: 007847 1 Tablet(s) PO Q6-8H as needed 08/28/2017 09/29/2017 Inactive hydrocodone 5 mg-linh taminophen 325 mg tablet RxNorm: 962172 1 Tablet(s) PO Q6-8H as needed 07/23/2017 08/24/2017 Inactive lisinopril 10 mg tablet RxNorm: 954743 1 Tablet(s) PO BID Take 1 tablet by mout h daily 07/23/2017 01/13/2018 Inactive hydrocodone 5 mg-linh taminophen 325 mg tablet RxNorm: 051339 1 Tablet(s) PO Q6-8H as needed 06/27/2017 07/22/2017 Inactive Xanax 0.5 mg tablet RxNorm: 749942 1 Tablet(s) PO TID 06/18/2017 10/25/2017 Inactive hydrocodone 5 mg-linh taminophen 325 mg tablet RxNorm: 685779 1 Tablet(s) PO Q6-8H as needed 05/27/2017 06/26/2017 Inactive Levaquin 500 mg tablet RxNorm: 725807 1 Tablet(s) PO daily 05/24/2017 05/23/2017 Inactive Levaquin 500 mg tablet RxNorm: 923803 1 Tablet(s) PO daily 05/24/2017 05/30/2017 Inactive Protonix 40 mg table t,delayed release RxNorm: 216117 Take 1 tablet by mout h daily 04/29/2017 09/15/2017 In active - Ref: [id number] hydrocodone 5 mg-linh taminophen 325 mg tablet RxNorm: 702269 1 Tablet(s) PO Q6-8H as needed 04/25/2017 05/26/2017 Inactive metformin 500 mg tablet RxNorm: 068005 Take 1 tablet by mouth daily 04/08/2017 12/29/2017 Inactive - First Attempt Ref: [id number] hydrocodone 5 mg-linh taminophen 325 mg tablet RxNorm: 088304 1 Tablet(s) PO Q6-8H as needed 03/27/2017 04/24/2017 Inactive hydrocodone 5 mg-linh taminophen 325 mg tablet RxNorm: 778066 1 Tablet(s) PO Q6-8H as needed 02/25/2017 03/26/2017 Inactive Protonix 40 mg table t,delayed release RxNorm: 629399 Tablet(s) Take 1 tabl et by mouth BID 02/25/2017 04/28/2017 Inactive Protonix 40 mg table t,delayed release RxNorm: 601089 Tablet(s) Take 1 tabl et by mouth BID 02/19/2017 02/18/2017 Inactive Protonix 40 mg table t,delayed release RxNorm: 328481 Tablet(s) Take 1 tabl et by mouth BID 02/19/2017 02/24/2017 Inactive lisinopril 10 mg tablet RxNorm: 902441 Take 1 tablet by mouth daily 01/29/2017 07/22/2017 Inactive - First Attempt Ref: [id number] hydrocodone 5 mg-linh taminophen 325 mg tablet RxNorm: 072518 1 Tablet(s) PO Q6-8H as needed 01/25/2017 02/24/2017 Inactive simvastatin 40 mg ta blet RxNorm: 496151 Tablet(s) Take 1 tabl et by mouth daily at bedtime 01/03/2017 12/28/2017 Inactive lisinopril 10 mg tablet RxNorm: 590215 Tablet(s) Take 1 tablet by mouth daily 01/03/2017 01/28/2017 In active Protonix 40 mg table t,delayed release RxNorm: 919404 Tablet(s) Take 1 tabl et by mouth daily 12/28/2016 02/18/2017 Inactive hydrocodone 5 mg-linh taminophen 325 mg tablet RxNorm: 502962 1 Tablet(s) PO Q6-8H as needed 12/26/2016 01/24/2017 Inactive Xanax 0.5 mg tablet RxNorm: 027698 1 Tablet(s) PO TID 12/12/2016 03/11/2017 Inactive simvastatin 40 mg ta blet RxNorm: 234192 Tablet(s) Take 1 tabl et by mouth daily at bedtime 11/30/2016 01/02/2017 Inactive simvastatin 40 mg ta blet RxNorm: 572937 Take 1 tablet by mout h daily at bedtime 11/29/2016 11/29/2016 In active - First Attempt Ref: [id number] Protonix 40 mg table t,delayed release RxNorm: 060068 Take 1 tablet by mout h daily 11/27/2016 12/27/2016 In active - First Attempt Ref: [id number] hydrocodone 5 mg-linh taminophen 325 mg tablet RxNorm: 184539 1 Tablet(s) PO Q6-8H as needed 11/26/2016 12/25/2016 Inactive hydrocodone 5 mg-linh taminophen 325 mg tablet RxNorm: 118043 1 Tablet(s) PO Q8 as needed 10/24/2016 11/25/2016 Inactive Xanax 0.5 mg tablet RxNorm: 099420 1 Tablet(s) PO TID 10/09/2016 12/25/2016 Inactive hydrocodone 5 mg-linh taminophen 325 mg tablet RxNorm: 310834 1 Tablet(s) PO Q8 as needed 09/27/2016 10/23/2016 Inactive lisinopril 10 mg tablet RxNorm: 043179 Take 1 tablet by mouth daily 09/25/2016 01/02/2017 Inactive - First Attempt Ref: [id number] Vitamin D2 50,000 un it capsule RxNorm: 437993 1 Capsule(s) PO QW 09/06/2016 12/01/2018 Inactive hydrocodone 5 mg-linh taminophen 325 mg tablet RxNorm: 185542 1 Tablet(s) PO Q8 as needed 08/28/2016 09/26/2016 Inactive Toujeo SoloStar 300 unit/mL (1.5 mL) subcutaneous insulin pen RxNorm: 3756687 25 Unit(s) SQ QHS 08/23/2016 08/29/2017 Inactive dosage increase hydrocodone 5 mg-linh taminophen 325 mg tablet RxNorm: 184445 1 Tablet(s) PO Q8 as needed 07/26/2016 08/27/2016 Inactive Protonix 40 mg table t,delayed release RxNorm: 496280 Take 1 tablet by mout h daily 07/24/2016 11/26/2016 In active - First Attempt Ref: [id number] hydrocodone 5 mg-linh taminophen 325 mg tablet RxNorm: 238215 1 Tablet(s) PO Q8 as needed 06/19/2016 07/21/2016 Inactive Toujeo SoloStar 300 unit/mL (1.5 mL) subcutaneous insulin pen RxNorm: 2515660 32 Unit(s) SQ QHS 05/30/2016 08/22/2016 Inactive dosage increase hydrocodone 5 mg-linh taminophen 325 mg tablet RxNorm: 008626 1 Tablet(s) PO Q8 as needed 05/22/2016 06/18/2016 Inactive hydrocodone 5 mg-linh taminophen 325 mg tablet RxNorm: 673211 1 Tablet(s) PO Q8 as needed 04/18/2016 05/17/2016 Inactive Protonix 40 mg table t,delayed release RxNorm: 181372 Take 1 tablet by mout h daily 04/05/2016 07/03/2016 In active - Ref: [id number] metformin 500 mg tablet RxNorm: 153107 Take 1 tablet by mouth daily 04/04/2016 07/02/2016 Inactive - Ref: [id number] Xanax 0.5 mg tablet RxNorm: 057244 1 Tablet(s) PO TID 03/30/2016 09/25/2016 Inactive Xanax 0.5 mg tablet RxNorm: 197197 1 Tablet(s) PO TID 03/23/2016 12/25/2016 Inactive hydrocodone 5 mg-linh taminophen 325 mg tablet RxNorm: 780577 1 Tablet(s) PO Q8 as needed 03/06/2016 04/04/2016 Inactive Cipro 500 mg tablet RxNorm: 317901 1 Tablet(s) PO BID 02/24/2016 03/04/2016 Inactive Miralax 17 gram oral powder packet RxNorm: 151209 1 packet PO every oth er day 01/27/2016 No Stop Date Active hydrocodone 5 mg-linh taminophen 325 mg tablet RxNorm: 070000 1 Tablet(s) PO Q8 as needed 01/27/2016 02/25/2016 Inactive lisinopril 10 mg tablet RxNorm: 441094 1 Tablet(s) PO daily 01/12/2016 09/24/2016 Inactive simvastatin 40 mg ta blet RxNorm: 129145 1 Tablet(s) PO QHS 01/12/2016 11/28/2016 Inactive simvastatin 40 mg ta blet RxNorm: 721537 1 Tablet(s) PO QHS 01/11/2016 01/11/2016 Inactive lisinopril 10 mg tablet RxNorm: 633284 1 Tablet(s) PO daily 01/06/2016 01/11/2016 Inactive simvastatin 40 mg ta blet RxNorm: 895470 1 Tablet(s) PO daily 12/28/2015 01/10/2016 Inactive hydrocodone 5 mg-linh taminophen 325 mg tablet RxNorm: 727883 1 Tablet(s) PO Q8 as needed 12/27/2015 01/26/2016 Inactive Xanax 0.5 mg tablet RxNorm: 116656 1 Tablet(s) PO TID 11/30/2015 03/29/2016 Inactive Toujeo SoloStar 300 unit/mL (1.5 mL) subcutaneous insulin pen RxNorm: 1648451 30 Unit(s) SQ QHS 11/25/2015 05/29/2016 Inactive dosage increase meclizine 25 mg tablet RxNorm: 602475 1 Tablet(s) PO Q6 PRN TAKE ONE TABLET BY MOUTH EVERY 6 HOURS NEEDED 11/25/2015 02/22/2016 Inactive omeprazole 20 mg cap jacquelyn,delayed release RxNorm: 625522 1 Capsule(s) PO daily 10/06/2015 01/26/2016 In active Toshilpio SoloStar 300 unit/mL (1.5 mL) subcutaneous insulin pen RxNorm: 1379476 35 Unit(s) SQ QHS 08/02/2015 11/24/2015 Inactive dosage increase Vitamin D2 50,000 un it capsule RxNorm: 078382 1 Capsule(s) PO QW 08/02/2015 09/05/2016 Inactive hydrocodone 5 mg-linh taminophen 325 mg tablet RxNorm: 922103 1 Tablet(s) PO Q8 as needed 07/11/2015 12/26/2015 Inactive Xanax 0.5 mg tablet RxNorm: 229944 1 Tablet(s) PO TID 06/30/2015 06/29/2015 Inactive Xanax 0.5 mg tablet RxNorm: 003964 1 Tablet(s) PO TID 06/30/2015 12/25/2015 Inactive hydrocodone 5 mg-linh taminophen 325 mg tablet RxNorm: 181912 1 Tablet(s) PO Q8 as needed 05/06/2015 07/10/2015 Inactive Symbicort 160 mcg-4. 5 mcg/actuation HFA aerosol inhaler RxNorm: 7096205 INH 04/25/2015 No Stop Date Active Levemir FlexTouch 10 0 unit/mL (3 mL) subcutaneous insulin pen RxNorm: 349495 30 Unit(s) SQ QHS 04/25/2015 11/24/2015 Inactive prednisone 20 mg tablet RxNorm: 747610 1 Tablet(s) PO BID 04/25/2015 04/29/2015 Inactive metformin 500 mg tablet RxNorm: 864837 1 Tablet(s) PO daily 04/25/2015 04/03/2016 Inactive amoxicillin 500 mg c apsule RxNorm: 310567 1 Capsule(s) PO TID 04/14/2015 04/13/2015 Inactive amoxicillin 500 mg c apsule RxNorm: 997406 1 Capsule(s) PO TID a nd recommend probiotic tid (otc) 04/14/2015 04/20/2015 Inactive Kenalog 40 mg/mL bartolome pension for injection RxNorm: 0047986 Milliliter(s) Inj 04/12/2015 04/12/2015 In active hydrocodone 5 mg-linh taminophen 325 mg tablet RxNorm: 987847 1 Tablet(s) PO Q8 as needed 03/30/2015 05/05/2015 Inactive Lantus 100 unit/mL s ubcutaneous solution RxNorm: 922009 25 Unit(s) SQ QPM 03/24/2015 04/25/2015 In active meclizine 25 mg tablet RxNorm: 727887 Tablet(s) TAKE ONE TABLET BY MOUTH EVERY 6 HOURS NEEDED 03/08/2015 04/06/2015 Inactive meclizine 25 mg tablet RxNorm: 555940 TAKE ONE TABLET BY MOUTH EVERY 6 HOURS A S NEEDED 02/25/2015 03/03/2015 Inactive Lantus 100 unit/mL s ubcutaneous solution RxNorm: 297262 20 Unit(s) SQ QPM 02/23/2015 03/23/2015 In active Lantus 100 unit/mL s ubcutaneous solution RxNorm: 313836 25 Unit(s) SQ QPM 02/23/2015 02/22/2015 In active hydrocodone 5 mg-linh taminophen 325 mg tablet RxNorm: 746341 1 Tablet(s) PO Q8 as needed 02/17/2015 03/29/2015 Inactive Xanax 0.5 mg tablet RxNorm: 425603 1 Tablet(s) PO TID 02/03/2015 06/29/2015 Inactive Lantus 100 unit/mL s ubcutaneous solution RxNorm: 888388 20 Unit(s) SQ QPM 12/29/2014 02/22/2015 In active Phenergan 12.5 mg re ctal suppository RxNorm: 342916 1 Suppository RTL Q6 PRN 12/23/2014 No Stop Date Active nausea Kenalog 40 mg/mL bartolome pension for injection RxNorm: 0620938 Milliliter(s) Inj 12/23/2014 12/23/2014 In active prednisone 20 mg tablet RxNorm: 962441 2 Tablet(s) PO daily 12/13/2014 12/17/2014 Inactive prednisone 20 mg tablet RxNorm: 824457 2 Tablet(s) PO daily 12/13/2014 12/12/2014 Inactive meclizine 25 mg tablet RxNorm: 740018 1 Tablet(s) PO Q6 PRN 12/09/2014 02/24/2015 Inactive hydrocodone 5 mg-linh taminophen 325 mg tablet RxNorm: 236636 1 Tablet(s) PO Q8 as needed 12/09/2014 02/16/2015 Inactive Vitamin B-12 1,000 m cg/mL oral drops RxNorm: 8003228 1 Milliliter(s) PO d aily No Start Date Active Alphagan P 0.1 % eye drops RxNorm: 002508 1 Drop(s) OPH BID No Start Date Active aspirin 325 mg table t,delayed release RxNorm: 651894 1 Tablet(s) PO daily No Start Date Active Tricor 145 mg tablet RxNorm: 308114 1 Tablet(s) PO daily No Start Date Active vitamin [id number] B1 oral liquid RxNorm: 1,000 Microgram(s) PO daily No Start Date Active atenolol 50 mg tablet RxNorm: 878697 1 Tablet(s) PO daily No Start Date Active Protonix 40 mg table t,delayed release RxNorm: 718036 1 Tablet(s) PO daily No Start Date 04/04/2016 Inactive glipizide 10 mg tablet RxNorm: 446009 1 Tablet(s) PO BID No Start Date 03/22/2015 Inactive Lantus 100 unit/mL s ubcutaneous solution RxNorm: 096590 15 Unit(s) SQ QPM No Start Date 12/28/2014 Inactive lisinopril 10 mg tablet RxNorm: 322852 1 Tablet(s) PO daily No Start Date 01/05/2016 Inactive Vitamin D2 50,000 un it capsule RxNorm: 532631 1 Capsule(s) PO QW No Start Date 08/01/2015 Inactive Toujeo SoloStar 300 unit/mL (1.5 mL) subcutaneous insulin pen RxNorm: 5483319 30 Unit(s) SQ QHS No Start Date 08/01/2015 Inactive simvastatin 40 mg ta blet RxNorm: 793438 1 Tablet(s) PO daily No Start Date 12/27/2015 Inactive testosterone cypiona te 200 mg/mL intramuscular oil RxNorm: 487414 1 Milliliter(s) IM monthly No Start Date 01/16/2018 Inactive hydrocodone 5 mg-linh taminophen 325 mg tablet RxNorm: 917314 1 Tablet(s) PO Q8 as needed No Start Date 12/08/2014 Inactive metformin 500 mg tablet RxNorm: 944282 1 Tablet(s) PO daily No Start Date 04/24/2015 Inactive omeprazole 20 mg cap jacquelyn,delayed release RxNorm: 416260 1 Capsule(s) PO daily No Start Date 10/05/2015 Inactive Flomax 0.4 mg capsule RxNorm: 881125 1 Capsule(s) PO daily No Start Date 03/23/2015 Inactive Medication Administered Medication Codes Instruc tions Start Date Status testosterone cypionate 200 mg/mL intramuscular oil RxNorm: 5017576 Milliliter 12/02/2018 Active testosterone cypionate 200 mg/mL intramuscular oil RxNorm: 4793592 Milliliter 11/18/2018 No longer Active testosterone cypionate 200 mg/mL intramuscular oil RxNorm: 6554074 Milliliter 11/04/2018 No longer Active testosterone cypionate 200 mg/mL intramuscular oil RxNorm: 9260824 Milliliter 10/14/2018 No longer Active testosterone cypionate 200 mg/mL intramuscular oil RxNorm: 4484837 Milliliter 10/03/2018 No longer Active testosterone cypionate 200 mg/mL intramuscular oil RxNorm: 2316145 Milliliter 09/23/2018 No longer Active testosterone cypionate 200 mg/mL intramuscular oil RxNorm: 9223481 1/2Milliliter 09/02/2018 No longer Active testosterone enanthate 200 mg/mL intramuscular oil RxNorm: 480504 Milliliter 08/21/2018 No longer Active testosterone cypionate 200 mg/mL intramuscular oil RxNorm: 3249885 Milliliter 08/08/2018 No longer Active testosterone cypionate 200 mg/mL intramuscular oil RxNorm: 2571374 1/2Milliliter 07/28/2018 No longer Active testosterone cypionate 200 mg/mL intramuscular oil RxNorm: 236636 Milliliter 07/16/2018 No longer Active testosterone cypionate 200 mg/mL intramuscular oil RxNorm: 173123 Milliliter 07/02/2018 No longer Active testosterone cypionate 200 mg/mL intramuscular oil RxNorm: 929677 Milliliter 06/24/2018 No longer Active testosterone cypionate 200 mg/mL intramuscular oil RxNorm: 924023 Milliliter 06/13/2018 No longer Active testosterone cypionate 200 mg/mL intramuscular oil RxNorm: 226395 Milliliter 06/05/2018 No longer Active testosterone cypionate 200 mg/mL intramuscular oil RxNorm: 744600 Milliliter 05/30/2018 No longer Active testosterone cypionate 200 mg/mL intramuscular oil RxNorm: 220960 Milliliter 05/22/2018 No longer Active testosterone cypionate 200 mg/mL intramuscular oil RxNorm: 047795 1/2Milliliter 05/12/2018 No longer Active testosterone cypionate 200 mg/mL intramuscular oil RxNorm: 490900 Milliliter 05/02/2018 No longer Active testosterone cypionate 200 mg/mL intramuscular oil RxNorm: 964394 0.5Milliliter 04/24/2018 No longer Active testosterone cypionate 200 mg/mL intramuscular oil RxNorm: 102617 1/2Milliliter 04/17/2018 No longer Active ketorolac 60 mg/2 mL intramuscular solution RxNorm: 7021619 Milliliter 03/07/2018 No longer Active Kenalog 40 mg/mL suspension for injection RxNorm: 3578027 1.5Milliliter 01/30/2018 No longer Active testosterone cypionate 200 mg/mL intramuscular oil RxNorm: 565927 Milliliter 01/17/2018 No longer Active Kenalog 40 mg/mL suspension for injection RxNorm: 7749319 Milliliter 04/12/2015 No longer Active Kenalog 40 mg/mL suspension for injection RxNorm: 5990499 Milliliter 12/23/2014 No longer Active Immunizations Vaccine [...] 33.4 pg 12/02/2018 Cbc With Differential Ord2 Harris% 8.0 % 12/02/2018 Cbc With Differential Ord2 [...] 2.13 K/ul 12/02/2018 Cbc With Differential Ord2 Harris ABS# 0.6 K/ul 12/02/2018 Cbc With Differential Ord2 Eos ABS# 0.4 K/ul 12/02/2018 Cbc With Differential Ord2 Baso ABS# 0.0 K/ul 12/02/2018 Testosterone Dxh255 Testo 213.5 ng/dL 12/02/2018 A1C Frequency Fzj794 A1CF 95954-2 Last A1C performed [place] [facility] [place]: 201812/02/2018 Testosterone Vql367 Testo 669.0 ng/dL 09/08/2018 %Hba1C Nar583 % HbA1c 89302-5 7.4 % 09/08/2018 %Hba1C Toy252 Gluc Ave 166 mg/dL 09/08/2018 Lipid Ord30 CHOL 114 mg/dL 09/08/2018 Lipid Ord30 HDL 28.0 mg/dl 09/08/2018 Lipid Ord30 TRIG 154 mg/dL 09/08/2018 Lipid Ord30 LDL 55 mg/dL 09/08/2018 Lipid Ord30 C/HDL 4.1 Ratio 09/08/2018 Comp Metabolic Iod645 NA 137 mEq/L 09/08/2018 Comp Metabolic Cdp003 K 4.3 mEq/L 09/08/2018 Comp Metabolic Ksg128 CL 100 mEq/L 09/08/2018 Comp Metabolic Eme353 CO2 27.0 mEq/L 09/08/2018 Comp Metabolic Ktd576 AN ION GAP 14 09/08/2018 Comp Metabolic Fyr420 GL UCOSE 85 mg/dL 09/08/2018 Comp Metabolic Ibn932 Cr eat 1.1 mg/dL 09/08/2018 Comp Metabolic Wlv225 eG FR 70 ml/min/1.73m2 09/08 Comp Metabolic Mnu035 BUN 11 mg/dL 09/08/2018 Comp Metabolic Ofr346 B/ C Ratio 10.3 Ratio 09/08/2018 Comp Metabolic Dyn368 CA LCIUM 9.2 mg/dL 09/08/2018 Comp Metabolic Lze179 AL K PHOS 65 U/L 09/08/2018 Comp Metabolic Dwd679 T(SGOT) 16 U/L 09/08/2018 Comp Metabolic Irs170 AL T(SGPT) 14 U/L 09/08/2018 Comp Metabolic Kaa102 BI LI T 0.6 mg/dL 09/08/2018 Comp Metabolic Geh093 AL BUMIN 4.0 g/dL 09/08/2018 Comp Metabolic Nyb750 TP RO 6.6 g/dL 09/08/2018 Comp Metabolic Bgp796 GL OB 2.6 g/dL 09/08/2018 Comp Metabolic Wvd103 A/ G Ratio 1.6 Ratio 09/08/2018 Comp Metabolic Zeu249 Os mo 272 mOsmo 09/08/2018 Vitamin D 25 Oh Kje2916 VITAMIN D, 25 HYDROXY 37.17 ng/mL 09/08/2018 [...] 33.3 pg 09/08/2018 Cbc With Differential Ord2 Harris% 8.1 % 09/08/2018 Cbc With Differential Ord2 [...] 2.44 K/ul 09/08/2018 Cbc With Differential Ord2 Harris ABS# 0.6 K/ul 09/08/2018 Cbc With Differential Ord2 Eos ABS# 0.3 K/ul 09/08/2018 Cbc With Differential Ord2 Baso ABS# 0.0 K/ul 09/08/2018 Tsh Ord6 TSH (3rd IS) 2.72 uIU/mL 09/08/2018 Comp Metabolic Mix722 NA 139 mEq/L 04/01/2018 Comp Metabolic Oer932 K 4.2 mEq/L 04/01/2018 Comp Metabolic Xso663 CL 102 mEq/L 04/01/2018 Comp Metabolic Sel090 CO2 29.0 mEq/L 04/01/2018 Comp Metabolic Ymq874 AN ION GAP 12 04/01/2018 Comp Metabolic Lam856 GL UCOSE 87 mg/dL 04/01/2018 Comp Metabolic Hff639 Cr eat 1.1 mg/dL 04/01/2018 Comp Metabolic Mzf677 eG FR 70 ml/min/1.73m2 04/01 Comp Metabolic Ahg743 BUN 21 mg/dL 04/01/2018 Comp Metabolic Soq257 B/ C Ratio 19.4 Ratio 04/01/2018 Comp Metabolic Bix485 CA LCIUM 9.1 mg/dL 04/01/2018 Comp Metabolic Urt424 AL K PHOS 60 U/L 04/01/2018 Comp Metabolic Zkh048 T(SGOT) 15 U/L 04/01/2018 Comp Metabolic Plq712 AL T(SGPT) 18 U/L 04/01/2018 Comp Metabolic Gct295 BI LI T 0.4 mg/dL 04/01/2018 Comp Metabolic Cor236 AL BUMIN 4.0 g/dL 04/01/2018 Comp Metabolic Adv728 TP RO 6.5 g/dL 04/01/2018 Comp Metabolic Eqx609 GL OB 2.5 g/dL 04/01/2018 Comp Metabolic Umi835 A/ G Ratio 1.6 Ratio 04/01/2018 Comp Metabolic Yzm317 Os mo 280 mOsmo 04/01/2018 Lipid Ord30 [...] 34.3 pg 04/01/2018 Cbc With Differential Ord2 Harris% 6.0 % 04/01/2018 Cbc With Differential Ord2 [...] 3.25 K/ul 04/01/2018 Cbc With Differential Ord2 Harris ABS# 0.6 K/ul 04/01/2018 Cbc With Differential Ord2 Eos ABS# 0.4 K/ul 04/01/2018 Cbc With Differential Ord2 Baso ABS# 0.0 K/ul 04/01/2018 %Hba1C Xzy840 % HbA1c 07399-4 8.0 % 04/01/2018 %Hba1C Wtd781 Gluc Ave 183 mg/dL 04/01/2018 Testosterone Dfv763 Testo 111.3 ng/dL 04/01/2018 Testosterone Xnk248 Testo 135.4 ng/dL 01/14/2018 Cbc With Differential [...] 36.0 pg 01/14/2018 Cbc With Differential Ord2 Harris% 6.8 % 01/14/2018 Cbc With Differential Ord2 [...] 2.71 K/ul 01/14/2018 Cbc With Differential Ord2 Harris ABS# 0.8 K/ul 01/14/2018 Cbc With Differential Ord2 Eos ABS# 0.2 K/ul 01/14/2018 Cbc With Differential Ord2 Baso ABS# 0.0 K/ul 01/14/2018 Comp Metabolic Eht259 NA 134 mEq/L 11/20/2017 Comp Metabolic Arp600 K 4.4 mEq/L 11/20/2017 Comp Metabolic Oya486 CL 99 mEq/L 11/20/2017 Comp Metabolic Vtw104 CO2 29.0 mEq/L 11/20/2017 Comp Metabolic Wsr419 AN ION GAP 10 11/20/2017 Comp Metabolic Nqr317 GL UCOSE 218 mg/dL 11/20/2017 Comp Metabolic Nso107 Cr eat 1.0 mg/dL 11/20/2017 Comp Metabolic Xix462 eG FR 78 ml/min/1.73m2 11/20 Comp Metabolic Alo479 BUN 13 mg/dL 11/20/2017 Comp Metabolic Lqd501 B/ C Ratio 13.3 Ratio 11/20/2017 Comp Metabolic Llh016 CA LCIUM 9.0 mg/dL 11/20/2017 Comp Metabolic Xlo900 AL K PHOS 71 U/L 11/20/2017 Comp Metabolic Wvl596 T(SGOT) 18 U/L 11/20/2017 Comp Metabolic Gsv134 AL T(SGPT) 17 U/L 11/20/2017 Comp Metabolic Smu322 BI LI T 0.4 mg/dL 11/20/2017 Comp Metabolic Smu664 AL BUMIN 4.1 g/dL 11/20/2017 Comp Metabolic Bcm066 TP RO 6.5 g/dL 11/20/2017 Comp Metabolic Elw808 GL OB 2.4 g/dL 11/20/2017 Comp Metabolic Jna280 A/ G Ratio 1.8 Ratio 11/20/2017 Comp Metabolic Jzo887 Os mo 275 mOsmo 11/20/2017 Cbc With [...] 35.2 pg 11/20/2017 Cbc With Differential Ord2 Harris% 7.2 % 11/20/2017 Cbc With Differential Ord2 [...] 3.34 K/ul 11/20/2017 Cbc With Differential Ord2 Harris ABS# 0.6 K/ul 11/20/2017 Cbc With Differential Ord2 Eos ABS# 0.3 K/ul 11/20/2017 Cbc With Differential Ord2 Baso ABS# 0.0 K/ul 11/20/2017 Vitamin D 25 Oh Dhi2363 VITAMIN D, 25 HYDROXY 43.72 ng/mL 11/20/2017 %Hba1C Chr248 % HbA1c 92117-3 7.4 % 11/20/2017 %Hba1C Axk899 Gluc Ave 166 mg/dL 11/20/2017 %Hba1C Jvc939 % HbA1c 38339-1 7.2 % 08/20/2017 %Hba1C Zoe599 Gluc Ave 160 mg/dL 08/20/2017 Lipid Ord30 [...] 34.7 pg 08/20/2017 Cbc With Differential Ord2 Harris% 7.6 % 08/20/2017 Cbc With Differential Ord2 [...] 2.42 K/ul 08/20/2017 Cbc With Differential Ord2 Harris ABS# 0.6 K/ul 08/20/2017 Cbc With Differential Ord2 Eos ABS# 0.3 K/ul 08/20/2017 Cbc With Differential Ord2 Baso ABS# 0.0 K/ul 08/20/2017 Tsh Ord6 hTSH II 2.27 uIU/mL 08/20/2017 Comp Metabolic Qek283 NA 138 mEq/L 08/20/2017 Comp Metabolic Hia128 K 4.3 mEq/L 08/20/2017 Comp Metabolic Xkb744 CL 102 mEq/L 08/20/2017 Comp Metabolic Npy423 CO2 29.0 mEq/L 08/20/2017 Comp Metabolic Ubb487 AN ION GAP 11 08/20/2017 Comp Metabolic Bsd532 GL UCOSE 89 mg/dL 08/20/2017 Comp Metabolic Vqb583 Cr eat 1.0 mg/dL 08/20/2017 Comp Metabolic Wry567 eG FR 80 ml/min/1.73m2 08/20 Comp Metabolic Nsa651 BUN 13 mg/dL 08/20/2017 Comp Metabolic Tlg734 B/ C Ratio 13.5 Ratio 08/20/2017 Comp Metabolic Zle257 CA LCIUM 9.2 mg/dL 08/20/2017 Comp Metabolic Hvg651 AL K PHOS 69 U/L 08/20/2017 Comp Metabolic Xpd485 T(SGOT) 18 U/L 08/20/2017 Comp Metabolic Qdb602 AL T(SGPT) 19 U/L 08/20/2017 Comp Metabolic Lgu524 BI LI T 0.6 mg/dL 08/20/2017 Comp Metabolic Tvd775 AL BUMIN 4.0 g/dL 08/20/2017 Comp Metabolic Xfx551 TP RO 6.6 g/dL 08/20/2017 Comp Metabolic Pma006 GL OB 2.6 g/dL 08/20/2017 Comp Metabolic Bia464 A/ G Ratio 1.5 Ratio 08/20/2017 Comp Metabolic Req365 Os mo 275 mOsmo 08/20/2017 Vitamin D 25 Oh Ptj4789 VITAMIN D, 25 HYDROXY 30.96 ng/mL 08/20/2017 B12 Qet132 B12 >1500.00 pg/ml 02/22/2017 Cbc With Differential [...] 35.7 pg 02/20/2017 Cbc With Differential Ord2 Harris% 6.3 % 02/20/2017 Cbc With Differential Ord2 [...] 3.19 K/ul 02/20/2017 Cbc With Differential Ord2 Harris ABS# 0.5 K/ul 02/20/2017 Cbc With Differential Ord2 Eos ABS# 0.4 K/ul 02/20/2017 Cbc With Differential Ord2 Baso ABS# 0.0 K/ul 02/20/2017 Comp Metabolic Vjc170 NA 138 mEq/L 02/20/2017 Comp Metabolic Axl215 K 4.5 mEq/L 02/20/2017 Comp Metabolic Ahu052 CL 101 mEq/L 02/20/2017 Comp Metabolic Rvz946 CO2 31.0 mEq/L 02/20/2017 Comp Metabolic Uen505 AN ION GAP 11 02/20/2017 Comp Metabolic Agy372 GL UCOSE 120 mg/dL 02/20/2017 Comp Metabolic Rzw461 Cr eat 0.9 mg/dL 02/20/2017 Comp Metabolic Khz292 eG FR 83 ml/min/1.73m2 02/20 Comp Metabolic Eqd071 BUN 15 mg/dL 02/20/2017 Comp Metabolic Tvo224 B/ C Ratio 16.1 Ratio 02/20/2017 Comp Metabolic Xme380 CA LCIUM 9.1 mg/dL 02/20/2017 Comp Metabolic Khc685 AL K PHOS 67 U/L 02/20/2017 Comp Metabolic Nei525 T(SGOT) 15 U/L 02/20/2017 Comp Metabolic Tmh278 AL T(SGPT) 16 U/L 02/20/2017 Comp Metabolic Nfq654 BI LI T 0.5 mg/dL 02/20/2017 Comp Metabolic Itp194 AL BUMIN 4.0 g/dL 02/20/2017 Comp Metabolic Xob142 TP RO 6.4 g/dL 02/20/2017 Comp Metabolic Nhj533 GL OB 2.4 g/dL 02/20/2017 Comp Metabolic Nsx043 A/ G Ratio 1.7 Ratio 02/20/2017 Comp Metabolic Wzb901 Os mo 278 mOsmo 02/20/2017 Tsh Ord6 hTSH II 2.05 uIU/mL 02/20/2017 %Hba1C Ytp840 % HbA1c 80948-2 7.6 % 02/20/2017 %Hba1C Kcm910 Gluc Ave 171 mg/dL 02/20/2017 Vitamin D 25 Oh Bgl8605 VITAMIN D, 25 HYDROXY 44.40 ng/mL 12/21/2016 Comp Metabolic Imx005 NA 131 mEq/L 12/21/2016 Comp Metabolic Zlt121 K 4.2 mEq/L 12/21/2016 Comp Metabolic Irv429 CL 97 mEq/L 12/21/2016 Comp Metabolic Pwi451 CO2 27.0 mEq/L 12/21/2016 Comp Metabolic Bnz669 AN ION GAP 11 12/21/2016 Comp Metabolic Fqu729 GL UCOSE 266 mg/dL 12/21/2016 Comp Metabolic Edb488 Cr eat 0.9 mg/dL 12/21/2016 Comp Metabolic Gnn331 eG FR 88 ml/min/1.73m2 12/21 Comp Metabolic Nsx323 BUN 12 mg/dL 12/21/2016 Comp Metabolic Pqd374 B/ C Ratio 13.6 Ratio 12/21/2016 Comp Metabolic Tjb149 CA LCIUM 8.6 mg/dL 12/21/2016 Comp Metabolic Nav565 AL K PHOS 69 U/L 12/21/2016 Comp Metabolic Col234 T(SGOT) 15 U/L 12/21/2016 Comp Metabolic Jkx639 AL T(SGPT) 14 U/L 12/21/2016 Comp Metabolic Uuv841 BI LI T 0.3 mg/dL 12/21/2016 Comp Metabolic Aln672 AL BUMIN 3.7 g/dL 12/21/2016 Comp Metabolic Fom569 TP RO 5.9 g/dL 12/21/2016 Comp Metabolic Igc800 GL OB 2.2 g/dL 12/21/2016 Comp Metabolic Ohu069 A/ G Ratio 1.7 Ratio 12/21/2016 Comp Metabolic Jdj895 Os mo 272 mOsmo 12/21/2016 Cbc With [...] 34.6 pg 12/21/2016 Cbc With Differential Ord2 Harris% 6.9 % 12/21/2016 Cbc With Differential Ord2 [...] 2.05 K/ul 12/21/2016 Cbc With Differential Ord2 Harris ABS# 0.4 K/ul 12/21/2016 Cbc With Differential Ord2 Eos ABS# 0.2 K/ul 12/21/2016 Cbc With Differential Ord2 Baso ABS# 0.0 K/ul 12/21/2016 Comp Metabolic Nlk028 NA 138 mEq/L 09/03/2016 Comp Metabolic Swi655 K 4.5 mEq/L 09/03/2016 Comp Metabolic Xmv648 CL 102 mEq/L 09/03/2016 Comp Metabolic Ysv062 CO2 30.0 mEq/L 09/03/2016 Comp Metabolic Yyh658 AN ION GAP 11 09/03/2016 Comp Metabolic Hjl661 GL UCOSE 113 mg/dL 09/03/2016 Comp Metabolic Wxn416 Cr eat 1.0 mg/dL 09/03/2016 Comp Metabolic Hrv805 eG FR 81 ml/min/1.73m2 09/03 Comp Metabolic Nzm782 BUN 10 mg/dL 09/03/2016 Comp Metabolic Ect019 B/ C Ratio 10.5 Ratio 09/03/2016 Comp Metabolic Few686 CA LCIUM 9.1 mg/dL 09/03/2016 Comp Metabolic Jgh115 AL K PHOS 71 U/L 09/03/2016 Comp Metabolic Jsp668 T(SGOT) 18 U/L 09/03/2016 Comp Metabolic Puy575 AL T(SGPT) 17 U/L 09/03/2016 Comp Metabolic Jue487 BI LI T 0.6 mg/dL 09/03/2016 Comp Metabolic Ery934 AL BUMIN 4.1 g/dL 09/03/2016 Comp Metabolic Yte194 TP RO 6.4 g/dL 09/03/2016 Comp Metabolic Mga115 GL OB 2.3 g/dL 09/03/2016 Comp Metabolic Wgq149 A/ G Ratio 1.8 Ratio 09/03/2016 Comp Metabolic Vhd411 Os mo 276 mOsmo 09/03/2016 Vitamin D 25 Oh Qom4835 VITAMIN D, 25 HYDROXY 28.23 ng/mL 09/03/2016 [...] 34.4 pg 09/03/2016 Cbc With Differential Ord2 Harris% 8.9 % 09/03/2016 Cbc With Differential Ord2 [...] 3.34 K/ul 09/03/2016 Cbc With Differential Ord2 Harris ABS# 0.7 K/ul 09/03/2016 Cbc With Differential Ord2 Eos ABS# 0.4 K/ul 09/03/2016 Cbc With Differential Ord2 Baso ABS# 0.0 K/ul 09/03/2016 Lipid Ord30 CHOL 120 mg/dL 09/03/2016 Lipid Ord30 HDL 33.0 mg/dl 09/03/2016 Lipid Ord30 TRIG 161 mg/dL 09/03/2016 Lipid Ord30 LDL 55 mg/dL 09/03/2016 Lipid Ord30 C/HDL 3.6 Ratio 09/03/2016 %Hba1C Wrf946 % HbA1c 61471-8 7.5 % 09/03/2016 %Hba1C Pwi171 Gluc Ave 169 mg/dL 09/03/2016 Tsh Ord6 hTSH II 1.50 uIU/mL 05/23/2016 %Hba1C Zgm925 % HbA1c 60968-1 7.6 % 05/23/2016 %Hba1C Oxj713 Gluc Ave 171 mg/dL 05/23/2016 Comp Metabolic Uty742 NA 135 mEq/L 05/23/2016 Comp Metabolic Oka040 K 4.4 mEq/L 05/23/2016 Comp Metabolic Pqs474 CL 99 mEq/L 05/23/2016 Comp Metabolic Xql665 CO2 28.0 mEq/L 05/23/2016 Comp Metabolic Oci184 AN ION GAP 12 05/23/2016 Comp Metabolic Vwv071 GL UCOSE 257 mg/dL 05/23/2016 Comp Metabolic Yxm344 Cr eat 0.8 mg/dL 05/23/2016 Comp Metabolic Xrz872 eG FR 95 ml/min/1.73m2 05/23 Comp Metabolic Mik437 BUN 11 mg/dL 05/23/2016 Comp Metabolic Mih935 B/ C Ratio 13.3 Ratio 05/23/2016 Comp Metabolic Tcj616 CA LCIUM 9.0 mg/dL 05/23/2016 Comp Metabolic Snv071 AL K PHOS 82 U/L 05/23/2016 Comp Metabolic Otl347 T(SGOT) 21 U/L 05/23/2016 Comp Metabolic Mza508 AL T(SGPT) 20 U/L 05/23/2016 Comp Metabolic Mld525 BI LI T 0.3 mg/dL 05/23/2016 Comp Metabolic Lca455 AL BUMIN 4.0 g/dL 05/23/2016 Comp Metabolic Jmd303 TP RO 6.4 g/dL 05/23/2016 Comp Metabolic Swy279 GL OB 2.4 g/dL 05/23/2016 Comp Metabolic Pyt809 A/ G Ratio 1.6 Ratio 05/23/2016 Comp Metabolic Nei524 Os mo 278 mOsmo 05/23/2016 Cbc With [...] 34.5 pg 05/23/2016 Cbc With Differential Ord2 Harris% 6.1 % 05/23/2016 Cbc With Differential Ord2 [...] 2.38 K/ul 05/23/2016 Cbc With Differential Ord2 Harris ABS# 0.4 K/ul 05/23/2016 Cbc With Differential Ord2 Eos ABS# 0.2 K/ul 05/23/2016 Cbc With Differential Ord2 Baso ABS# 0.0 K/ul 05/23/2016 B12 Yrp309 B12 597.00 pg/ml 05/23/2016 Metabolic Ord15 NA [...] 0.92 uIU/mL 07/29/2015 Vitamin D 25 Oh Pqp4518 VITAMIN D, 25 HYDROXY 26.93 ng/mL 07/29/2015 %Hba1C Otc139 % HbA1c 63030-0 8.8 % 07/29/2015 %Hba1C Jec211 Gluc Ave 206 mg/dL 07/29/2015 Cbc With [...] Ord2 RDW 14.9 % 07/29/2015 Comp Metabolic Dtz073 NA 138 mEq/L 07/29/2015 Comp Metabolic Bws347 K 4.4 mEq/L 07/29/2015 Comp Metabolic Wfz873 CL 102 mEq/L 07/29/2015 Comp Metabolic Dlx453 CO2 28.0 mEq/L 07/29/2015 Comp Metabolic Pch725 AN ION GAP 12 07/29/2015 Comp Metabolic Clr240 GL UCOSE 261 mg/dL 07/29/2015 Comp Metabolic Xnx943 Cr eat 1.0 mg/dL 07/29/2015 Comp Metabolic Udp946 eG FR 77 ml/min/1.73m2 07/29 Comp Metabolic Avf493 BUN 13 mg/dL 07/29/2015 Comp Metabolic Zuh739 B/ C Ratio 13.0 Ratio 07/29/2015 Comp Metabolic Enu656 CA LCIUM 9.1 mg/dL 07/29/2015 Comp Metabolic Oic704 AL K PHOS 64 U/L 07/29/2015 Comp Metabolic Bgp578 T(SGOT) 20 U/L 07/29/2015 Comp Metabolic Mnh778 AL T(SGPT) 22 U/L 07/29/2015 Comp Metabolic Hfa878 BI LI T 0.4 mg/dL 07/29/2015 Comp Metabolic Gay914 AL BUMIN 4.0 g/dL 07/29/2015 Comp Metabolic Iwp268 TP RO 6.1 g/dL 07/29/2015 Comp Metabolic Xpo740 GL OB 2.1 g/dL 07/29/2015 Comp Metabolic Mnk045 A/ G Ratio 1.9 Ratio 07/29/2015 Comp Metabolic Gsk536 Os mo 285 mOsmo 07/29/2015 Cbc With [...] Ord2 RDW 13.1 % 05/06/2015 Comp Metabolic Lgv484 NA 134 mEq/L 05/06/2015 Comp Metabolic Isp492 K 4.4 mEq/L 05/06/2015 Comp Metabolic Uff520 CL 98 mEq/L 05/06/2015 Comp Metabolic Omj600 CO2 29.0 mEq/L 05/06/2015 Comp Metabolic Ywf888 AN ION GAP 11 05/06/2015 Comp Metabolic Wbq831 GL UCOSE 321 mg/dL 05/06/2015 Comp Metabolic Fum526 Cr eat 1.0 mg/dL 05/06/2015 Comp Metabolic Oco818 eG FR 78 ml/min/1.73m2 05/06 Comp Metabolic Tai957 BUN 20 mg/dL 05/06/2015 Comp Metabolic Gnd125 B/ C Ratio 20.4 Ratio 05/06/2015 Comp Metabolic Mtd310 CA LCIUM 9.5 mg/dL 05/06/2015 Comp Metabolic Wws800 AL K PHOS 62 U/L 05/06/2015 Comp Metabolic Ldx870 T(SGOT) 21 U/L 05/06/2015 Comp Metabolic Seh069 AL T(SGPT) 37 U/L 05/06/2015 Comp Metabolic Bvi532 BI LI T 0.4 mg/dL 05/06/2015 Comp Metabolic Lcc540 AL BUMIN 3.8 g/dL 05/06/2015 Comp Metabolic Qvj462 TP RO 6.1 g/dL 05/06/2015 Comp Metabolic Jno280 GL OB 2.3 g/dL 05/06/2015 Comp Metabolic Skp219 A/ G Ratio 1.7 Ratio 05/06/2015 Comp Metabolic Vjz246 Os mo 283 mOsmo 05/06/2015 Tsh Ord6 hTSH II 1.65 uIU/mL 02/18/2015 B12 Ncp241 B12 605.00 pg/ml 02/18/2015 %Hba1C Wxk594 % HbA1c 15044-7 8.3 % 02/18/2015 %Hba1C Zsx969 Gluc Ave 192 mg/dL 02/18/2015 Cbc With [...] Ord2 RDW 13.9 % 02/17/2015 Comp Metabolic Wks033 NA 137 mEq/L 02/17/2015 Comp Metabolic Vxs042 K 4.4 mEq/L 02/17/2015 Comp Metabolic Ptp594 CL 100 mEq/L 02/17/2015 Comp Metabolic Vvs487 CO2 31.0 mEq/L 02/17/2015 Comp Metabolic Aim116 AN ION GAP 10 02/17/2015 Comp Metabolic Lvq239 GL UCOSE 307 mg/dL 02/17/2015 Comp Metabolic Pmg802 Cr eat 1.0 mg/dL 02/17/2015 Comp Metabolic Mvq897 eG FR 74 ml/min/1.73m2 02/17 Comp Metabolic Lfp740 BUN 22 mg/dL 02/17/2015 Comp Metabolic Sff462 B/ C Ratio 21.4 Ratio 02/17/2015 Comp Metabolic Tmv324 CA LCIUM 9.5 mg/dL 02/17/2015 Comp Metabolic Dwf800 AL K PHOS 78 U/L 02/17/2015 Comp Metabolic Pak552 T(SGOT) 18 U/L 02/17/2015 Comp Metabolic Fss247 AL T(SGPT) 32 U/L 02/17/2015 Comp Metabolic Bui272 BI LI T 0.5 mg/dL 02/17/2015 Comp Metabolic Ocf671 AL BUMIN 4.3 g/dL 02/17/2015 Comp Metabolic Rvl791 TP RO 6.7 g/dL 02/17/2015 Comp Metabolic Lrk349 GL OB 2.4 g/dL 02/17/2015 Comp Metabolic Mjx392 A/ G Ratio 1.8 Ratio 02/17/2015 Comp Metabolic Nty243 Os mo 289 mOsmo 02/17/2015 Review of [...] inspection of skin Location: face 03/07/2015 on [place]lam, cheeks,actinic keratosis with irritation on left cheek - left islam - croptherapy on these two lesions - [...] Procedure Codes Date THER/PROPH/DIAG INJ SC/IM CPT-4: 91981 12/02/2018 THER/PROPH/DIAG INJ SC/IM CPT-4: 31415 11/18/2018 THER/PROPH/DIAG INJ SC/IM CPT-4: 10709 11/04/2018 THER/PROPH/DIAG INJ SC/IM CPT-4: 79265 10/14/2018 THER/PROPH/DIAG INJ SC/IM CPT-4: 39217 10/03/2018 THER/PROPH/DIAG INJ SC/IM CPT-4: 32743 09/23/2018 THER/PROPH/DIAG INJ SC/IM CPT-4: 41896 09/02/2018 THER/PROPH/DIAG INJ SC/IM CPT-4: 45456 08/21/2018 THER/PROPH/DIAG INJ SC/IM CPT-4: 25630 08/08/2018 THER/PROPH/DIAG INJ SC/IM CPT-4: 79964 07/28/2018 THER/PROPH/DIAG INJ SC/IM CPT-4: 78269 07/16/2018 THER/PROPH/DIAG INJ SC/IM CPT-4: 36748 07/02/2018 PPPS, SUBSEQ VISIT CPT- 4: G0439 06/30/2018 THER/PROPH/DIAG INJ SC/IM CPT-4: 47816 06/24/2018 THER/PROPH/DIAG INJ SC/IM CPT-4: 90354 06/13/2018 ADMIN INFLUENZA VIRU S VAC CPT-4: G0008 06/06/2018 FLU VACC PRSV FREE I NC ANTIG CPT-4: 48182 06/06/2018 THER/PROPH/DIAG INJ SC/IM CPT-4: 56481 06/05/2018 THER/PROPH/DIAG INJ SC/IM CPT-4: 62550 05/30/2018 THER/PROPH/DIAG INJ SC/IM CPT-4: 20888 05/22/2018 THER/PROPH/DIAG INJ SC/IM CPT-4: 12147 05/12/2018 THER/PROPH/DIAG INJ SC/IM CPT-4: 94837 05/02/2018 THER/PROPH/DIAG INJ SC/IM CPT-4: 59009 04/24/2018 THER/PROPH/DIAG INJ SC/IM CPT-4: 81652 04/17/2018 KETOROLAC TROMETHAMI NE INJ CPT-4: J1885 03/07/2018 URINALYSIS NONAUTO W /O SCOPE CPT-4: 90544 03/07/2018 THER/PROPH/DIAG INJ SC/IM CPT-4: 80222 02/20/2018 TRIAMCINOLONE ACET I [place] NOS CPT-4: J3301 01/30/2018 THER/PROPH/DIAG INJ SC/IM CPT-4: 28819 01/17/2018 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 3-[address]: 213651278 CPT-4: G0436 04/25/2017 ADMIN INFLUENZA VIRU S VAC CPT-4: G0008 04/25/2017 ADMIN PNEUMOCOCCAL V ACCINE SNOMED CT: 69599464 CPT-4: G0009 04/25/2017 PNEUMOCOCCAL VACC [address]: 18545429 CPT-4: 47243 04/25/2017 FLU VACC PRSV FREE I NC ANTIG CPT-4: 26877 04/25/2017 ADMIN INFLUENZA VIRU S VAC CPT-4: G0008 05/22/2016 FLU VACC 4 TELLY 3 YRS PLUS IM Formatting Model/CDA Sections, Assigned to/Angela Clemons SNOMED CT: 88754125 CPT-4: 30873Ljyrzkr 05/22/2016 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 3-[address]: 365862936 CPT-4: G0436 11/25/2015 URINALYSIS NONAUTO W /O SCOPE CPT-4: 85118 05/09/2015 TRIAMCINOLONE ACET I [place] NOS CPT-4: J3301 04/12/2015 DESTRUCT PREMALG LESION CPT-4: 86133 03/07/2015 DESTRUCT PREMALG LES 2-14 CPT-4: 54532 03/07/2015 REMOVE IMPACTED EAR WAX UNI CPT-4: 08073 12/31/2014 THER/PROPH/DIAG INJ SC/IM CPT-4: 73413 12/23/2014 TRIAMCINOLONE ACET I [place] NOS CPT-4: J3301 12/23/2014 Vital Signs Date Vital 12/02/2018 Blood Pressure 1: 140/70 Code: 8480-6 BMI: 21.9 Code: 23828-0 Heart Rate 1: 61 bpm Height: 5'11" SpO2: 94% Weight: 157 lbs 10/17/2018 Blood Pressure 1: 124/54 Code: 8480-6 BMI: 21.9 Code: 55611-6 Heart Rate 1: 64 bpm Height: 5'11" SpO2: 93% Weight: 157 lbs 09/02/2018 Blood Pressure 1: 140/80 Code: 8480-6 BMI: 21.2 Code: 11052-2 Heart Rate 1: 68 bpm Height: 5'11" SpO2: 97% Weight: 152 lbs 06/30/2018 BMI: 21.8 Code: 80060-4 Height: 5'11" Weight: 156 lbs 06/06/2018 Blood Pressure 1: 128/76 Code: 8480-6 BMI: 22.0 Code: 69385-5 Heart Rate 1: 81 bpm Height: 5'11" SpO2: 92% Weight: 158 lbs 04/04/2018 Blood Pressure 1: 124/70 Code: 8480-6 BMI: 20.8 Code: 21351-2 Heart Rate 1: 65 bpm Height: 5'11" SpO2: 95% Weight: 149 lbs 03/07/2018 Blood Pressure 1: 148/70 Code: 8480-6 BMI: 21.2 Code: 07802-2 Heart Rate 1: 66 bpm Height: 5'11" SpO2: 94% Weight: 152 lbs 02/20/2018 Blood Pressure 1: 134/58 Code: 8480-6 BMI: 20.5 Code: 70323-2 Heart Rate 1: 61 bpm Height: 5'11" SpO2: 92% Weight: 147 lbs 01/30/2018 Blood Pressure 1: 158/68 Code: 8480-6 BMI: 21.5 Code: 61223-9 Heart Rate 1: 71 bpm Height: 5'11" SpO2: 92% Weight: 154 lbs 01/14/2018 Blood Pressure 1: 156/70 Code: 8480-6 Height: Weight: 01/13/2018 Blood Pressure 1: 148/62 Code: 8480-6 BMI: 20.9 Code: 19045-9 Heart Rate 1: 54 bpm Height: 5'11" SpO2: 97% Weight: 150 lbs 11/19/2017 Blood Pressure 1: 150/60 Code: 8480-6 BMI: 21.8 Code: 15319-7 Heart Rate 1: 63 bpm Height: 5'11" SpO2: 98% Weight: 156 lbs 10/02/2017 Blood Pressure 1: 168/60 Code: 8480-6 BMI: 21.9 Code: 63870-9 Heart Rate 1: 52 bpm Height: 5'11" SpO2: 97% Weight: 157 lbs 07/23/2017 Blood Pressure 1: 170/70 Code: 8480-6 BMI: 21.8 Code: 90273-6 Heart Rate 1: 65 bpm Height: 5'11" SpO2: 98% Weight: 156 lbs 04/25/2017 Blood Pressure 1: 138/60 Code: 8480-6 BMI: 21.6 Code: 10416-7 Heart Rate 1: 55 bpm Height: 5'11" SpO2: 93% Weight: 155 lbs 02/19/2017 Blood Pressure 1: 138/64 Code: 8480-6 BMI: 21.3 Code: 18911-8 Heart Rate 1: 52 bpm Height: 5'11" SpO2: 96% Weight: 152 lbs 8 oz 01/21/2017 Blood Pressure 1: 160/68 Code: 8480-6 BMI: 21.3 Code: 40384-7 Heart Rate 1: 62 bpm Height: 5'11" SpO2: 96% Weight: 153 lbs 12/20/2016 Blood Pressure 1: 124/66 Code: 8480-6 BMI: 21.5 Code: 55695-5 Height: 5'11" Weight: 154 lbs 08/23/2016 Blood Pressure 1: 142/52 Code: 8480-6 BMI: 21.2 Code: 57555-0 Heart Rate 1: 54 bpm Height: 5'11" SpO2: 96% Weight: 152 lbs 05/22/2016 Blood Pressure 1: 130/76 Code: 8480-6 BMI: 21.5 Code: 91894-1 Heart Rate 1: 78 bpm Height: 5'11" SpO2: 92% Weight: 154 lbs 02/24/2016 Blood Pressure 1: 128/80 Code: 8480-6 BMI: 21.2 Code: 07031-3 Heart Rate 1: 74 bpm Height: 5'11" SpO2: 96% Weight: 152 lbs 01/27/2016 Blood Pressure 1: 144/60 Code: 8480-6 BMI: 21.2 Code: 48861-8 Heart Rate 1: 74 bpm Height: 5'11" SpO2: 97% Weight: 152 lbs 11/25/2015 Blood Pressure 1: 110/52 Code: 8480-6 BMI: 21.9 Code: 22695-8 Heart Rate 1: 65 bpm Height: 5'11" SpO2: 92% Weight: 157 lbs 07/28/2015 Blood Pressure 1: 138/62 Code: 8480-6 BMI: 21.8 Code: 09777-6 Heart Rate 1: 63 bpm Height: 5'11" SpO2: 91% Weight: 156 lbs 05/26/2015 Blood Pressure 1: 120/58 Code: 8480-6 BMI: 21.5 Code: 78195-7 Heart Rate 1: 99 bpm Height: 5'11" SpO2: 96% Weight: 154 lbs 05/06/2015 Blood Pressure 1: 120/58 Code: 8480-6 BMI: 21.2 Code: 78336-8 Heart Rate 1: 66 bpm Height: 5'11" SpO2: 96% Weight: 152 lbs 04/25/2015 Blood Pressure 1: 136/62 Code: 8480-6 BMI: 21.2 Code: 17384-7 Heart Rate 1: 63 bpm Height: 5'11" SpO2: 97% Weight: 152 lbs 04/12/2015 Blood Pressure 1: 160/58 Code: 8480-6 BMI: 21.6 Code: 37018-1 Heart Rate 1: 62 bpm Height: 5'11" Weight: 155 lbs 03/24/2015 Blood Pressure 1: 138/68 Code: 8480-6 BMI: 22.0 Code: 51968-6 Heart Rate 1: 65 bpm Height: 5'11" SpO2: 96% Weight: 158 lbs 03/07/2015 Blood Pressure 1: 116/52 Code: 8480-6 BMI: 22.2 Code: 30499-6 Heart Rate 1: 64 bpm Height: 5'11" SpO2: 97% Weight: 159 lbs 02/17/2015 Blood Pressure 1: 148/58 Code: 8480-6 BMI: 21.3 Code: 29303-9 Heart Rate 1: 63 bpm Height: 5'11" SpO2: 97% Weight: 153 lbs 12/31/2014 Blood Pressure 1: 100/60 Code: 8480-6 BMI: 21.8 Code: 71011-0 Heart Rate 1: 68 bpm Height: 5'11" Weight: 156 lbs 12/23/2014 Blood Pressure 1: 148/64 Code: 8480-6 BMI: 21.9 Code: 80866-6 Heart Rate 1: 64 bpm Height: 5'11" [...] Encounters Encounter Performer Loca tion Codes Date [id number]) [id number] EST. P ATIENT, LEVEL IV Diagnosis: Chronic obstructive pulmonary disease, unspecified[ICD10: J44.9] Diagnosis: Type 2 diabetes mellitus with hyperglycemia[ICD10: E11.65] Diagnosis: Testicular dysfunction, unspecified[ICD10: E29.9] Diagnosis: Other insomnia[ICD10: G47.09] Karmen Ash MD, [facility] CPT- 4: [address] 12/02/2018 ([id number] 09514 EST. P ATIENT, LEVEL III Diagnosis: Orthostatic hypotension[ICD10: I95.1] Diagnosis: Low back pain[ICD10: M54.5] Diagnosis: Unsteadiness on feet[ICD10: R26.81] Karmen Ash MD, [facility] CPT-4: 75993 10/17/2018 ([id number]) 49874 EST. 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 P ATIENT, LEVEL IV Diagnosis: Cellulitis of face[ICD10: L03.211] Diagnosis: Type 2 diabetes mellitus without complications[ICD10: E11.9] Diagnosis: Essential (primary) hypertension[ICD10: I10] Diagnosis: Encounter for immunization[ICD10: Z23] Karmen Ash MD, [facility] CPT-4: 67891 06/06/2018 ([id number]) 45810 EST. 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 P ATIENT, LEVEL III Diagnosis: Low back pain[ICD10: M54.5] Diagnosis: Dysuria[ICD10: R30.0] Karmen Ahs MD, [facility] CPT-4: 16317 03/07/2018 ([id number]) 06445 EST. 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 P ATIENT, LEVEL III Diagnosis: Chronic obstructive pulmonary disease with (acute) exacerbation[ICD10: J44.1] Karmen Ash MD, [facility] CPT-4: 65559 01/30/2018 58557 EST. PATIENT, LEVEL II Diagnosis: Insect bite (nonvenomous), left lower leg, initial encounter[ICD10: S80.862A] Karmen Ash MD, [facility] CPT-4: 02512 01/14/2018 ([id number]) 11873 EST. P ATIENT, LEVEL IV Diagnosis: Type 2 diabetes mellitus with hyperglycemia[ICD10: E11.65] Diagnosis: Chronic obstructive pulmonary disease, unspecified[ICD10: J44.9] Diagnosis: Other fatigue[ICD10: R53.83] Karmen Ash MD, [facility] CPT- 4: 11918 01/13/2018 ([id number]) 41680 EST. P ATIENT, LEVEL IV Diagnosis: Type 2 diabetes mellitus with hyperglycemia[ICD10: E11.65] Diagnosis: Vitamin D deficiency, unspecified[ICD10: E55.9] Diagnosis: Essential (primary) hypertension[ICD10: I10] Diagnosis: Abdominal distension (gaseous)[ICD10: R14.0] Diagnosis: Drug induced constipation[ICD10: K59.03] Karmen Ash MD, [facility] CPT-4: 16088 11/19/2017 95751 EST. PATIENT, LEVEL IV Diagnosis: Low back pain[ICD10: M54.5] Diagnosis: Chronic obstructive pulmonary disease, unspecified[ICD10: J44.9] Brunilda Ash MD, [facility] CPT-4: 77440 10/02/2017 ([id number]) 55902 EST. P ATIENT, LEVEL IV Diagnosis: Essential (primary) hypertension[ICD10: I10] Diagnosis: Type 2 diabetes mellitus with hyperglycemia[ICD10: E11.65] Diagnosis: Vitamin D deficiency, unspecified[ICD10: E55.9] Diagnosis: Mixed hyperlipidemia[ICD10: E78.2] Karmen Ash MD, [facility] CPT-4: 45431 07/23/2017 ([id number]) 52736 EST. P ATIENT, LEVEL IV Diagnosis: Essential (primary) hypertension[ICD10: I10] Diagnosis: Type 2 diabetes mellitus with hyperglycemia[ICD10: E11.65] Diagnosis: Chronic obstructive pulmonary disease, unspecified[ICD10: J44.9] Diagnosis: Nicotine dependence, unspecified, uncomplicated[ICD10: F17.200] Diagnosis: Encounter for immunization[ICD10: Z23] Karmen Ash MD, [facility] CPT-4: 41107 04/25/2017 ([id number]) 18420 EST. P ATIENT, LEVEL IV Diagnosis: Type 2 diabetes mellitus with hyperglycemia[ICD10: E11.65] Diagnosis: Essential (primary) hypertension[ICD10: I10] Diagnosis: Anemia, unspecified[ICD10: D64.9] Karmen Ash MD, [facility] CPT- 4: 28016 02/19/2017 ([id number]) 56456 EST. P ATIENT, LEVEL IV Diagnosis: Slow transit constipation[ICD10: K59.01] Diagnosis: Gastro-esophageal reflux disease without esophagitis[ICD10: K21.9] Diagnosis: Essential (primary) hypertension[ICD10: I10] Karmen Ash MD, [facility] CPT-4: 63780 01/21/2017 ([id number]) 80275 EST. P ATIENT, LEVEL IV Diagnosis: Type 2 diabetes mellitus with hyperglycemia[ICD10: E11.65] Diagnosis: Vitamin D deficiency, unspecified[ICD10: E55.9] Diagnosis: Essential (primary) hypertension[ICD10: I10] Diagnosis: Chronic obstructive pulmonary disease, unspecified[ICD10: J44.9] Karmen Ash MD, [facility] CPT-4: 75738 12/20/2016 ([id number]) 58886 EST. P ATIENT, LEVEL IV Diagnosis: Type 2 diabetes mellitus with hyperglycemia[ICD10: E11.65] Diagnosis: Essential (primary) hypertension[ICD10: I10] Diagnosis: Mixed hyperlipidemia[ICD10: E78.2] Diagnosis: Vitamin D deficiency, unspecified[ICD10: E55.9] Karmen Ash MD, [facility] CPT-4: 77484 08/23/2016 ([id number]) 71529 EST. P ATIENT, LEVEL IV Diagnosis: Type 2 diabetes mellitus with hyperglycemia[ICD10: E11.65] Diagnosis: Essential (primary) hypertension[ICD10: I10] Diagnosis: Chronic obstructive pulmonary disease, unspecified[ICD10: J44.9] Karmen Ash MD, [facility] CPT-4: 45013 05/22/2016 ([id number]) 72530 EST. P ATIENT, LEVEL III Diagnosis: Dysuria[ICD10: R30.0] Diagnosis: Essential (primary) hypertension[ICD10: I10] Karmen Ash MD, [facility] CPT-4: 25335 02/24/2016 ([id number]) 30836 EST. P ATIENT, LEVEL IV Diagnosis: Gastro-esophageal reflux disease without esophagitis[ICD10: K21.9] Diagnosis: Slow transit constipation[ICD10: K59.01] Diagnosis: Type 2 diabetes mellitus with hyperglycemia[ICD10: E11.65] Karmen Ash MD, [facility] CPT-4: 37456 01/27/2016 ([id number]) 83778 EST. P ATIENT, LEVEL IV Diagnosis: Essential (primary) hypertension[ICD10: I10] Diagnosis: Type 2 diabetes mellitus with hyperglycemia[ICD10: E11.65] Diagnosis: Vitamin D deficiency, unspecified[ICD10: E55.9] Diagnosis: Chronic obstructive pulmonary disease, unspecified[ICD10: J44.9] Diagnosis: Mixed hyperlipidemia[ICD10: E78.2] Diagnosis: Tobacco use[ICD10: Z72.0] Karmen Ash MD, [facility] CPT- 4: 59794 11/25/2015 ([id number]) 34805 EST. P ATIENT, LEVEL IV Diagnosis: Type 2 diabetes mellitus with hyperglycemia[ICD10: E11.65] Diagnosis: Essential (primary) hypertension[ICD10: I10] Diagnosis: Vitamin D deficiency, unspecified[ICD10: E55.9] Karmen Ash MD, [facility] CPT-4: 74203 07/28/2015 ([id number]) 86900 EST. P ATIENT, LEVEL III Diagnosis: Type 2 diabetes mellitus with hyperglycemia[ICD10: E11.65] Diagnosis: Essential (primary) hypertension[ICD10: I10] Violeta Ash MD, [facility] CPT-4: 57624 05/26/2015 ([id number]) 63643 EST. P ATIENT, LEVEL III Diagnosis: DIABETES TYPE II[ICD9: 250.00] Diagnosis: COPD (chronic obstructive pulmonary disease)[ICD9: 496] Diagnosis: ESSENTIAL HYPERTENSION[ICD9: 401.9] Diagnosis: Cough[ICD9: 786.2] Violeta Ash MD, [facility] CPT-4: 97017 05/06/2015 ([id number]) 23351 EST. P ATIENT, LEVEL III Diagnosis: COPD (chronic obstructive pulmonary disease)[ICD9: 496] Diagnosis: DIABETES TYPE II[ICD9: 250.00] Diagnosis: Muscle ache[ICD9: 729.1] Karmen Ash MD, [facility] CPT- 4: 81201 04/25/2015 ([id number]) 83241 EST. P ATIENT, LEVEL III Diagnosis: ACTINIC KERATOSIS[ICD9: 702.0] Diagnosis: COPD (chronic obstructive pulmonary disease)[ICD9: 496] Diagnosis: DIABETES TYPE II[ICD9: 250.00] Diagnosis: ACUTE URI[ICD9: 465.9] Violeta Ash MD, [facility] CPT-4: 23211 04/12/2015 ([id number]) 31805 EST. P ATIENT, LEVEL III Diagnosis: DIABETES TYPE II[ICD9: 250.00] Violeta Ash MD, [facility] CPT-4: 09669 03/24/2015 ([id number]) 75518 EST. P ATIENT, LEVEL IV Diagnosis: DIABETES TYPE II[ICD9: 250.00] Diagnosis: Hypoglycemia[ICD9: 251.2] Diagnosis: Skin texture changes[ICD9: 782.8] Violeta Ash MD, [facility] CPT-4: 09239 03/07/2015 ([id number]) 09638 EST. P ATIENT, LEVEL IV Diagnosis: COPD (chronic obstructive pulmonary disease)[ICD9: 496] Diagnosis: Fatigue[ICD9: 780.79] Diagnosis: Insulin dependent diabetes mellitus[ICD9: 250.00] Diagnosis: Unsteady gait[ICD9: 781.2] Maame Ash MD, [facility] CPT-4: 87044 02/17/2015 ([id number]) 96926 EST. P ATIENT, LEVEL IV Diagnosis: BPPV (benign paroxysmal positional vertigo)[ICD9: 386.11] Diagnosis: Impacted cerumen[ICD9: 380.4] Diagnosis: ESSENTIAL HYPERTENSION[ICD9: 401.9] Diagnosis: Insulin dependent diabetes mellitus[ICD9: 250.00] Karmen Ash MD, [facility] CPT-4: 69894 12/23/2014 ([id number]) [facility] 4 Diagnosis: Insulin dependent diabetes mellitus[ICD9: 250.00] Diagnosis: BPPV (benign paroxysmal positional vertigo)[ICD9: 386.11] Diagnosis: COPD (chronic obstructive pulmonary disease)[ICD9: 496] Diagnosis: Tobacco abuse[ICD9: 305.1] Diagnosis: Osteoarthritis[ICD9: 715.90] [facility] CPT- 4: 63647 12/09/2014 Plan of Care Planned Activity Notes [...] recommend patient try melatonin as directed 12/02/2018 Patient Education: Patient Medication Summary Completed 12/02/2018 Patient Education: Diabetes Completed 12/02/2018 Appointment: Injection 11/18/2018 Patient Education: Patient Medication Summary Completed 11/18/2018 Appointment: Injection 11/04/2018 Patient Education: Patient Medication Summary Completed 11/04/2018 App[facility]ment[facility] [phone] [phone] (30 min) Complex 10/21/2018 Visit Plan: [...] walker 10/17/2018 Appointment: [facility] [phone] [phone] (30 min) Complex 10/17/2018 Patient Education: [...] W[facility]el: [phone] (15 min) Moderate 09/02/2018 Patient Education: [...] care surrogate. 06/30/2018 Appointment: Karmen Espinal WPtel: [facility]2 [phone] [facility] - Annual Wellness Visit [...] WPtel: [phone] (15 min) Moderate 06/06/2018 Patient Education: [...] months 04/04/2018 Appointment: Karmen Espinal WPtel: [phone] [phone] [place] (15 min) Moderate 04/04/2018 Patient Education: Patient Medication Summary Completed 04/04/2018 Care Plan: Cbc With Differential Pending 04/04/2018 Care Plan: Testosterone repeat in 2 months Pending 04/04/2018 Appointment: [facility]inal [facility] [phone] [phone] [place] (15 min) Moderate 03/25/2018 Visit Plan: Low back pain -history of kidney stone-UA negative today -increase fluids and call if pain does not resolve or if any worse. 03/07/2018 Appointment: Karmen Espinal WPtel: [address] [place], [place] [phone] [place] (15 min) Moderate 03/07/2018 Patient Education: [...] 1 month 02/20/2018 Appointment: Karmen Espinal WPtel: [facility]6 [phone] (15 min) Moderate 02/20/2018 Patient Education: Patient Medication Summary Completed 02/20/2018 Visit Plan: COPD EXACERBATION - URGENT CARE TECHNICIAN D is a chronic problem for this [...] WPtel: [facility] [place] [address] (15 min) Moderate 01/30/2018 Patient Education: Patient Medication Summary Completed 01/30/2018 Appointment: Karmen Espinal WPtel: [phone] (15 min) Moderate 01/28/2018 Appointment: [place] 01/17/2018 Patient Education: Patient Medication Summary Completed 01/17/2018 Visit Plan: Cellulitis - start oral antibiotics as directed, return to clinic as previously directed, call for acute change in symptoms, worsening redness, warmth, discharge. 01/14/2018 Appointment: Karmen Espinal WPtel: [facility]6 [phone] (10 min) Simple 01/14/2018 Patient Education: [...] less controlled. 01/13/2018 Appointment: Karmen Espinal WPtel: [phone] [place] [phone] (15 min) Moderate 01/13/2018 Patient Education: Patient Medication Summary Completed 01/13/2018 Referral: Hugo Villatoro HPtel:[phone] Patient's informed. Referral info ned monroy. [...] change in blood pressure readings at home. Ilgocwnf-ojceof-jqwpa to see Dr Villatoro Constipation-start linzess daily 11/19/2017 Appointment: Karmen Espinal WPtel: [facility]9 [phone] (30 min) Complex 11/19/2017 Patient Education: Patient Medication Summary Completed 11/19/2017 Care Plan: Referral Order bloating, nausea SNOMED-CT : [id number] Pending 11/19/2017 Visit Plan: Low back pain- [...] changes. 10/02/2017 Appointment: Brunilda Maravilla WPtel: [address] [place], [place] [phone] (15 min) Moderate 10/02/2017 Patient Education: Patient [...] controlled. 07/23/2017 Appointment: [facility] Espinal WPtel[facility] [phone] [phone] (30 min) Complex 07/23/2017 Patient Education: [...] history 04/25/2017 Appointment: [facility] Espinal [facility]Ptel[facility] [phone] [phone] (30 min) Complex 04/25/2017 Patient Education: [...] readings are starting to become less controlled. Mimlkr-ncmmntz-hhnyg labs 02/19/2017 Appointment: Karmen Espinal WPtel: [phone] (30 min) Complex 02/19/2017 Patient Education: [...] 1 month 01/21/2017 Appointment: Karmen Espinal WPtel: [phone] (30 min) Complex 01/21/2017 Patient Education: Patient Medication Summary Completed 01/21/2017 Patient Education: Smoking and Tobacco Addiction Completed 01/21/2017 Patient Education: Hypertension Completed 01/21/2017 Care Plan: Referral Order SNOMED-CT : [id number] Pending 01/21/2017 Visit Plan: Diabetes Mellitus - [...] changes. 12/20/2016 Appointment: Karmen Espinal WPtel: [phone] [phone] (30 min) Complex 12/20/2016 Patient Education: Patient Medication Summary Completed 12/20/2016 Patient Education: Smoking and Tobacco Addiction Completed 12/20/2016 Patient Education: Hypertension Completed 12/20/2016 Appointment: Karmen Espinal WPtel: [phone] [phone] (30 min) Complex 09/06/2016 Visit Plan: [...] level 08/23/2016 Appointment: Karmen Espinal WPtel: [phone] [phone] (30 min) Complex 08/23/2016 Patient [...] acute changes. 05/22/2016 Appointment: Karmen Espinal WPtel: [facility]8 [phone] (30 min) Complex 05/22/2016 Patient Education: Patient Medication Summary Completed 05/22/2016 Patient Education: Smoking and Tobacco Addiction Completed 05/22/2016 Care Plan: Cbc With Differential Ordered 05/22/2016 Care Plan: %Hba1C LOIN C : 52395-6 Ordered 05/22/2016 Care Plan: Tsh Ordered 05/22/2016 [...] with update 02/24/2016 Appointment: Karmen Espinal WPtel: [phone] (30 min) Complex 02/24/2016 Patient [...] this regimen. 01/27/2016 Appointment: Karmen Espinal WPtel: [address] [place], [place] [phone] (30 min) [facility] 01/27/2016 Patient Education: Patient Medication Summary Completed [...] Completed 05/06/2015 Visit Plan: COPD EXACERBATION - URGENT CARE TECHNICIAN D is a chronic problem for this [...] POTENTIAL SIDE EFFECTS AND WORSENING OF SYMPTOMS. Byugpage-aygontze-TEMO SIMVASTATIN X 2 WEEKS AND CALL WITH [...] Care Plan: COMPLETE CBC AUTOMATED LOINC : 18022-2 Ordered 03/24/2015 Visit Plan: Diabetes Mellitus - [...] WPtel: [phone] (15 min) Moderate 03/07/2015 Patient Education: Patient [...] Care Plan: COMPLETE CBC AUTOMATED LOINC : 29838-7 Ordered 12/23/2014 Visit Plan: BPPV - Benign [...] next appt 12/09/2014 Appointment: Karmen Espinal WPtel: [phone] [place] ([place]) New Patient 12/09/2014 Patient Education: Patient Medication Summary Completed 12/09/2014 Patient Education: .Amazing charts Parox ysmal positional vertigo Completed 12/09/2014 Patient Education: Smoking and Tobacco Addiction Completed 12/09/2014 Referral: Hugo Villatoro HPtel:[phone] [phone] [place] Referral Appointment Requested Referral: Luis [...] readings are starting to become less controlled. Zqrcnc-xeidnmd-bqqdv labs . Cellulitis - start oral antibiotics [...] change in blood pressure readings at home. Hxbuhokk-qhdzvm-dwifb to see Dr Villatoro Constipation-start linzess daily [...] POTENTIAL SIDE EFFECTS AND WORSENING OF SYMPTOMS. Bjohwvyx-fbqazflw-IOVL SIMVASTATIN X 2 WEEKS AND CALL WITH [...]
--- OUTSIDE RECORDS SUMMARY | 2020-03-29 08:41 | XMS REPORT | CCD ---
Author Author Dick Espinal Organization Violeta Ash MD, [facility] Address [address] [place] [address] Phone Care Team Providers Care Service Support Representative Name Role Phone PP Unavailable CCM Unavailable Summary Purpose Interface Exchange Insurance Providers Payer name Policy type / Coverage type Covered constitution party ID Effective Begin Date Effective End Date WPS Medicare Part B Medicare Part B [id number] Unknown Unknown [employer] Medicar e Part B [id number] Unknown Unkn own Family history Father Diagnosis Age At Onset Cancer Unknown Mother Diagnosis Age At Onset Cancer Unknown Social History Social History Element Codes Description Effective Dates Marital status Unknown M arried 12/09/2014 Employment Unknown Retir ed 12/09/[address]: 02456174 Currently smokes tobacco 12/09/2014 Number of years using tobacco Unknown > 50 12/09/2014 Number of cigarettes/day Unknown 30 (Pack and a half) 12/09/[address]: 855011689 Never drinks alcohol 12/09/2014 Allergies, Adverse Reactions, [...] cypiona te 200 mg/mL intramuscular oil RxNorm: 6202148 Milliliter(s) IM 12/02/2018 12/02/2018 In active testosterone cypiona te 200 mg/mL intramuscular oil RxNorm: 9642509 Milliliter(s) IM 11/18/2018 11/18/2018 In active hydrocodone 5 mg-linh taminophen 325 mg tablet RxNorm: 328586 1 Tablet(s) PO Q6-8H as needed 11/13/2018 12/07/2018 Active testosterone cypiona te 200 mg/mL intramuscular oil RxNorm: 8658025 1/2 Milliliter(s) IM [id number] 11/04/2018 03/03/2019 Active testosterone cypiona te 200 mg/mL intramuscular oil RxNorm: 0407713 Milliliter(s) IM 11/04/2018 11/04/2018 In active nicotine 21 mg/24 hr daily transdermal patch RxNorm: 814153 1 TD daily 10/31/2018 10/30/2018 In active nicotine 21 mg/24 hr daily transdermal patch RxNorm: 654392 1 TD daily 10/31/2018 11/29/2018 In active meclizine 25 mg tablet RxNorm: 432311 1 Tablet(s) PO Q6 PRN TAKE ONE TABLET BY MOUTH EVERY 6 HOURS NEEDED 10/17/2018 01/14/2019 Active hydrocodone 5 mg-linh taminophen 325 mg tablet RxNorm: 350693 1 Tablet(s) PO Q6-8H as needed 10/17/2018 11/10/2018 Inactive metformin 500 mg tablet RxNorm: 434192 Tablet(s) TAKE 1 TABLET BY MOUTH DAILY 10/15/2018 10/09/2019 Ac tive lisinopril 10 mg tablet RxNorm: 162800 TAKE 1 TABLET BY MOUTH TWO TIMES DAILY 10/15/2018 10/09/2019 Ac tive - First Attempt Ref: [id number] testosterone cypiona te 200 mg/mL intramuscular oil RxNorm: 7036584 Milliliter(s) IM 10/14/2018 10/14/2018 In active Xanax 0.5 mg tablet RxNorm: 036309 1 Tablet(s) PO TID 10/03/2018 11/30/2018 Inactive testosterone cypiona te 200 mg/mL intramuscular oil RxNorm: 9385276 1/2 Milliliter(s) IM weekly 10/03/2018 11/03/2018 Inactive testosterone cypiona te 200 mg/mL intramuscular oil RxNorm: 0923864 Milliliter(s) IM 10/03/2018 10/03/2018 In active testosterone cypiona te 200 mg/mL intramuscular oil RxNorm: 6595960 Milliliter(s) IM 09/23/2018 09/23/2018 In active hydrocodone 5 mg-linh taminophen 325 mg tablet RxNorm: 805139 1 Tablet(s) PO Q6-8H as needed 09/22/2018 10/16/2018 Inactive testosterone cypiona te 200 mg/mL intramuscular oil RxNorm: 1652144 1/2 Milliliter(s) IM 09/02/2018 09/02/2018 Inactive testosterone enantha te 200 mg/mL intramuscular oil RxNorm: 112026 Milliliter(s) IM 08/21/2018 08/21/2018 In active hydrocodone 5 mg-linh taminophen 325 mg tablet RxNorm: 907208 1 Tablet(s) PO Q6-8H as needed 08/21/2018 09/14/2018 Inactive testosterone cypiona te 200 mg/mL intramuscular oil RxNorm: 1043145 Milliliter(s) IM 08/08/2018 08/08/2018 In active testosterone cypiona te 200 mg/mL intramuscular oil RxNorm: 1056189 1/2 Milliliter(s) IM 07/28/2018 07/28/2018 Inactive hydrocodone 5 mg-linh taminophen 325 mg tablet RxNorm: 194296 1 Tablet(s) PO Q6-8H as needed 07/21/2018 08/14/2018 Inactive testosterone cypiona te 200 mg/mL intramuscular oil RxNorm: 098564 Milliliter(s) IM 07/16/2018 07/16/2018 In active testosterone cypiona te 200 mg/mL intramuscular oil RxNorm: 119561 Milliliter(s) IM 07/02/2018 07/02/2018 In active Xanax 0.5 mg tablet RxNorm: 291760 1 Tablet(s) PO TID 06/27/2018 08/24/2018 Inactive testosterone cypiona te 200 mg/mL intramuscular oil RxNorm: 820062 Milliliter(s) IM 06/24/2018 06/24/2018 In active hydrocodone 5 mg-linh taminophen 325 mg tablet RxNorm: 637517 1 Tablet(s) PO Q6-8H as needed 06/23/2018 07/17/2018 Inactive testosterone cypiona te 200 mg/mL intramuscular oil RxNorm: 548399 Milliliter(s) IM 06/13/2018 06/13/2018 In active testosterone cypiona te 200 mg/mL intramuscular oil RxNorm: 178846 Milliliter(s) IM 06/05/2018 06/05/2018 In active testosterone cypiona te 200 mg/mL intramuscular oil RxNorm: 4765077 1/2 Milliliter(s) IM weekly 05/30/2018 09/26/2018 Inactive testosterone cypiona te 200 mg/mL intramuscular oil RxNorm: 916217 Milliliter(s) IM 05/30/2018 05/30/2018 In active testosterone cypiona te 200 mg/mL intramuscular oil RxNorm: 924910 Milliliter(s) IM 05/22/2018 05/22/2018 In active hydrocodone 5 mg-linh taminophen 325 mg tablet RxNorm: 955918 1 Tablet(s) PO Q6-8H as needed 05/20/2018 06/13/2018 Inactive testosterone cypiona te 200 mg/mL intramuscular oil RxNorm: 348925 1/2 Milliliter(s) IM 05/12/2018 05/12/2018 Inactive testosterone cypiona te 200 mg/mL intramuscular oil RxNorm: 969490 Milliliter(s) IM 05/02/2018 05/02/2018 In active testosterone cypiona te 200 mg/mL intramuscular oil RxNorm: 386166 1/2 Milliliter(s) IM weekly 04/24/2018 05/29/2018 Inactive testosterone cypiona te 200 mg/mL intramuscular oil RxNorm: 454110 0.5 Milliliter(s) IM 04/24/2018 04/24/2018 Inactive hydrocodone 5 mg-linh taminophen 325 mg tablet RxNorm: 805447 1 Tablet(s) PO Q6-8H as needed 04/22/2018 05/16/2018 Inactive testosterone cypiona te 200 mg/mL intramuscular oil RxNorm: 662182 1/2 Milliliter(s) IM 04/17/2018 04/17/2018 Inactive testosterone cypiona te 200 mg/mL intramuscular oil RxNorm: 090874 1/2 Milliliter(s) IM weekly 04/16/2018 04/23/2018 Inactive Jardiance 10 mg tablet RxNorm: 1456101 1 Tablet(s) PO daily 04/04/2018 12/29/2018 Active Protonix 40 mg table t,delayed release RxNorm: 594226 1 Tablet(s) PO daily TAKE 1 TABLET BY MOUTH DAILY 04/04/2018 03/29/2019 Active - Ref: [id number] testosterone cypiona te 200 mg/mL intramuscular oil RxNorm: 687860 1 Milliliter(s) IM monthly 04/04/2018 04/15/2018 Inactive hydrocodone 5 mg-linh taminophen 325 mg tablet RxNorm: 563310 1 Tablet(s) PO Q6-8H as needed 03/19/2018 04/12/2018 Inactive Flomax 0.4 mg capsule RxNorm: 101107 1 Capsule(s) PO daily 03/10/2018 03/04/2019 Active Urecholine 25 mg tablet RxNorm: 613645 1 Tablet(s) PO BID 03/10/2018 07/07/2018 Inactive ketorolac 60 mg/2 mL intramuscular solution RxNorm: 6194888 Milliliter(s) IM 03/07/2018 03/07/2018 In active metformin 500 mg tablet RxNorm: 042875 Tablet(s) TAKE 1 TABLET BY MOUTH DAILY 02/20/2018 02/13/2019 Ac tive 1 q am and 1/2 tab q pm hydrocodone 5 mg-linh taminophen 325 mg tablet RxNorm: 751606 1 Tablet(s) PO Q6-8H as needed 02/20/2018 03/16/2018 Inactive Kenalog 40 mg/mL bartolome pension for injection RxNorm: 2781090 1.5 Milliliter(s) In j 01/30/2018 01/30/2018 In active hydrocodone 5 mg-linh taminophen 325 mg tablet RxNorm: 515309 1 Tablet(s) PO Q6-8H as needed 01/23/2018 02/16/2018 Inactive Urecholine 25 mg tablet RxNorm: 710184 1 Tablet(s) PO BID 01/22/2018 03/09/2018 Inactive Flomax 0.4 mg capsule RxNorm: 663806 1 Capsule(s) PO daily 01/22/2018 03/09/2018 Inactive Flomax 0.4 mg capsule RxNorm: 543266 1 Capsule(s) PO daily 01/22/2018 01/21/2018 Inactive Urecholine 25 mg tablet RxNorm: 665781 1 Tablet(s) PO BID 01/22/2018 01/21/2018 Inactive testosterone cypiona te 200 mg/mL intramuscular oil RxNorm: 373208 Milliliter(s) IM 01/17/2018 01/17/2018 In active testosterone cypiona te 200 mg/mL intramuscular oil RxNorm: 528122 1 Milliliter(s) IM monthly 01/17/2018 04/03/2018 Inactive doxycycline hyclate 100 mg tablet RxNorm: 931301 1 Tablet(s) PO BID 01/14/2018 01/23/2018 Inactive lisinopril 10 mg tablet RxNorm: 890201 TAKE 1 TABLET BY MOUTH TWO TIMES DAILY 01/14/2018 10/14/2018 In active - First Attempt Ref: [id number] Xanax 0.5 mg tablet RxNorm: 093955 1 Tablet(s) PO TID 01/08/2018 04/06/2018 Inactive nystatin 100,000 uni t/mL oral suspension RxNorm: 326655 4 Milliliter(s) PO QI D Swish and swallow 01/08/2018 01/07/2018 Inactive nystatin 100,000 uni t/mL oral suspension RxNorm: 627527 4 Milliliter(s) PO QI D Swish and swallow 01/08/2018 01/12/2018 Inactive simvastatin 40 mg ta blet RxNorm: 009422 TAKE 1 TABLET BY MOUT H DAILY AT BEDTIME 12/30/2017 12/24/2018 Ac tive - First Attempt Ref: [id number] metformin 500 mg tablet RxNorm: 793993 TAKE 1 TABLET BY MOUTH DAILY 12/30/2017 02/19/2018 Inactive - First Attempt Ref: [id number] hydrocodone 5 mg-linh taminophen 325 mg tablet RxNorm: 890421 1 Tablet(s) PO Q6-8H as needed 12/25/2017 01/18/2018 Inactive Protonix 40 mg table t,delayed release RxNorm: 210804 Tablet(s) TAKE 1 TABL ET BY MOUTH DAILY 11/20/2017 04/03/2018 Inactive - Ref: [id number] Linzess 72 mcg capsule RxNorm: 5270704 1 Capsule(s) PO daily 11/19/2017 No Stop Date Active hydrocodone 5 mg-linh taminophen 325 mg tablet RxNorm: 736731 1 Tablet(s) PO Q6-8H as needed 11/19/2017 12/13/2017 Inactive hydrocodone 5 mg-linh taminophen 325 mg tablet RxNorm: 968595 1 Tablet(s) PO Q6-8H as needed 10/28/2017 11/18/2017 Inactive Xanax 0.5 mg tablet RxNorm: 244631 1 Tablet(s) PO TID 10/25/2017 12/22/2017 Inactive Xanax 0.5 mg tablet RxNorm: 355584 TAKE ONE TABLET BY MOUTH THREE TIMES A D AY 10/24/2017 12/01/2018 In active hydrocodone 5 mg-linh taminophen 325 mg tablet RxNorm: 030682 1 Tablet(s) PO Q6-8H as needed 09/30/2017 10/24/2017 Inactive Protonix 40 mg table t,delayed release RxNorm: 304625 TAKE 1 TABLET BY MOUT H DAILY 09/16/2017 11/19/2017 In active - Ref: [id number] Yovana Perkins 300 unit/mL (1.5 mL) subcutaneous insulin pen RxNorm: 9713994 35 Unit(s) SQ QHS 08/30/2017 No Stop Date Active dosage increase hydrocodone 5 mg-linh taminophen 325 mg tablet RxNorm: 758641 1 Tablet(s) PO Q6-8H as needed 08/28/2017 09/29/2017 Inactive hydrocodone 5 mg-linh taminophen 325 mg tablet RxNorm: 598167 1 Tablet(s) PO Q6-8H as needed 07/23/2017 08/24/2017 Inactive lisinopril 10 mg tablet RxNorm: 938067 1 Tablet(s) PO BID Take 1 tablet by mout h daily 07/23/2017 01/13/2018 Inactive hydrocodone 5 mg-linh taminophen 325 mg tablet RxNorm: 768411 1 Tablet(s) PO Q6-8H as needed 06/27/2017 07/22/2017 Inactive Xanax 0.5 mg tablet RxNorm: 417116 1 Tablet(s) PO TID 06/18/2017 10/25/2017 Inactive hydrocodone 5 mg-linh taminophen 325 mg tablet RxNorm: 620939 1 Tablet(s) PO Q6-8H as needed 05/27/2017 06/26/2017 Inactive Levaquin 500 mg tablet RxNorm: 056762 1 Tablet(s) PO daily 05/24/2017 05/23/2017 Inactive Levaquin 500 mg tablet RxNorm: 854478 1 Tablet(s) PO daily 05/24/2017 05/30/2017 Inactive Protonix 40 mg table t,delayed release RxNorm: 770644 Take 1 tablet by mout h daily 04/29/2017 09/15/2017 In active - Ref: [id number] hydrocodone 5 mg-linh taminophen 325 mg tablet RxNorm: 487388 1 Tablet(s) PO Q6-8H as needed 04/25/2017 05/26/2017 Inactive metformin 500 mg tablet RxNorm: 630279 Take 1 tablet by mouth daily 04/08/2017 12/29/2017 Inactive - First Attempt Ref: [id number] hydrocodone 5 mg-linh taminophen 325 mg tablet RxNorm: 196566 1 Tablet(s) PO Q6-8H as needed 03/27/2017 04/24/2017 Inactive hydrocodone 5 mg-linh taminophen 325 mg tablet RxNorm: 720709 1 Tablet(s) PO Q6-8H as needed 02/25/2017 03/26/2017 Inactive Protonix 40 mg table t,delayed release RxNorm: 901723 Tablet(s) Take 1 tabl et by mouth BID 02/25/2017 04/28/2017 Inactive Protonix 40 mg table t,delayed release RxNorm: 381450 Tablet(s) Take 1 tabl et by mouth BID 02/19/2017 02/18/2017 Inactive Protonix 40 mg table t,delayed release RxNorm: 884706 Tablet(s) Take 1 tabl et by mouth BID 02/19/2017 02/24/2017 Inactive lisinopril 10 mg tablet RxNorm: 559493 Take 1 tablet by mouth daily 01/29/2017 07/22/2017 Inactive - First Attempt Ref: [id number] hydrocodone 5 mg-linh taminophen 325 mg tablet RxNorm: 450196 1 Tablet(s) PO Q6-8H as needed 01/25/2017 02/24/2017 Inactive simvastatin 40 mg ta blet RxNorm: 619807 Tablet(s) Take 1 tabl et by mouth daily at bedtime 01/03/2017 12/28/2017 Inactive lisinopril 10 mg tablet RxNorm: 391492 Tablet(s) Take 1 tablet by mouth daily 01/03/2017 01/28/2017 In active Protonix 40 mg table t,delayed release RxNorm: 069095 Tablet(s) Take 1 tabl et by mouth daily 12/28/2016 02/18/2017 Inactive hydrocodone 5 mg-linh taminophen 325 mg tablet RxNorm: 410329 1 Tablet(s) PO Q6-8H as needed 12/26/2016 01/24/2017 Inactive Xanax 0.5 mg tablet RxNorm: 158484 1 Tablet(s) PO TID 12/12/2016 03/11/2017 Inactive simvastatin 40 mg ta blet RxNorm: 898415 Tablet(s) Take 1 tabl et by mouth daily at bedtime 11/30/2016 01/02/2017 Inactive simvastatin 40 mg ta blet RxNorm: 669293 Take 1 tablet by mout h daily at bedtime 11/29/2016 11/29/2016 In active - First Attempt Ref: [id number] Protonix 40 mg table t,delayed release RxNorm: 465897 Take 1 tablet by mout h daily 11/27/2016 12/27/2016 In active - First Attempt Ref: [id number] hydrocodone 5 mg-linh taminophen 325 mg tablet RxNorm: 403999 1 Tablet(s) PO Q6-8H as needed 11/26/2016 12/25/2016 Inactive hydrocodone 5 mg-linh taminophen 325 mg tablet RxNorm: 203361 1 Tablet(s) PO Q8 as needed 10/24/2016 11/25/2016 Inactive Xanax 0.5 mg tablet RxNorm: 022422 1 Tablet(s) PO TID 10/09/2016 12/25/2016 Inactive hydrocodone 5 mg-linh taminophen 325 mg tablet RxNorm: 363764 1 Tablet(s) PO Q8 as needed 09/27/2016 10/23/2016 Inactive lisinopril 10 mg tablet RxNorm: 297624 Take 1 tablet by mouth daily 09/25/2016 01/02/2017 Inactive - First Attempt Ref: [id number] Vitamin D2 50,000 un it capsule RxNorm: 501985 1 Capsule(s) PO QW 09/06/2016 12/01/2018 Inactive hydrocodone 5 mg-linh taminophen 325 mg tablet RxNorm: 758211 1 Tablet(s) PO Q8 as needed 08/28/2016 09/26/2016 Inactive Toujeo SoloStar 300 unit/mL (1.5 mL) subcutaneous insulin pen RxNorm: 9990060 25 Unit(s) SQ QHS 08/23/2016 08/29/2017 Inactive dosage increase hydrocodone 5 mg-linh taminophen 325 mg tablet RxNorm: 020923 1 Tablet(s) PO Q8 as needed 07/26/2016 08/27/2016 Inactive Protonix 40 mg table t,delayed release RxNorm: 871179 Take 1 tablet by mout h daily 07/24/2016 11/26/2016 In active - First Attempt Ref: [id number] hydrocodone 5 mg-linh taminophen 325 mg tablet RxNorm: 595478 1 Tablet(s) PO Q8 as needed 06/19/2016 07/21/2016 Inactive Toujeo SoloStar 300 unit/mL (1.5 mL) subcutaneous insulin pen RxNorm: 6085582 32 Unit(s) SQ QHS 05/30/2016 08/22/2016 Inactive dosage increase hydrocodone 5 mg-linh taminophen 325 mg tablet RxNorm: 455573 1 Tablet(s) PO Q8 as needed 05/22/2016 06/18/2016 Inactive hydrocodone 5 mg-linh taminophen 325 mg tablet RxNorm: 966012 1 Tablet(s) PO Q8 as needed 04/18/2016 05/17/2016 Inactive Protonix 40 mg table t,delayed release RxNorm: 148071 Take 1 tablet by mout h daily 04/05/2016 07/03/2016 In active - Ref: [id number] metformin 500 mg tablet RxNorm: 321886 Take 1 tablet by mouth daily 04/04/2016 07/02/2016 Inactive - Ref: [id number] Xanax 0.5 mg tablet RxNorm: 195315 1 Tablet(s) PO TID 03/30/2016 09/25/2016 Inactive Xanax 0.5 mg tablet RxNorm: 507685 1 Tablet(s) PO TID 03/23/2016 12/25/2016 Inactive hydrocodone 5 mg-linh taminophen 325 mg tablet RxNorm: 723554 1 Tablet(s) PO Q8 as needed 03/06/2016 04/04/2016 Inactive Cipro 500 mg tablet RxNorm: 263856 1 Tablet(s) PO BID 02/24/2016 03/04/2016 Inactive Miralax 17 gram oral powder packet RxNorm: 201663 1 packet PO every oth er day 01/27/2016 No Stop Date Active hydrocodone 5 mg-linh taminophen 325 mg tablet RxNorm: 167473 1 Tablet(s) PO Q8 as needed 01/27/2016 02/25/2016 Inactive lisinopril 10 mg tablet RxNorm: 425763 1 Tablet(s) PO daily 01/12/2016 09/24/2016 Inactive simvastatin 40 mg ta blet RxNorm: 241073 1 Tablet(s) PO QHS 01/12/2016 11/28/2016 Inactive simvastatin 40 mg ta blet RxNorm: 835156 1 Tablet(s) PO QHS 01/11/2016 01/11/2016 Inactive lisinopril 10 mg tablet RxNorm: 289901 1 Tablet(s) PO daily 01/06/2016 01/11/2016 Inactive simvastatin 40 mg ta blet RxNorm: 749110 1 Tablet(s) PO daily 12/28/2015 01/10/2016 Inactive hydrocodone 5 mg-linh taminophen 325 mg tablet RxNorm: 941491 1 Tablet(s) PO Q8 as needed 12/27/2015 01/26/2016 Inactive Xanax 0.5 mg tablet RxNorm: 909099 1 Tablet(s) PO TID 11/30/2015 03/29/2016 Inactive Toujeo SoloStar 300 unit/mL (1.5 mL) subcutaneous insulin pen RxNorm: 2807610 30 Unit(s) SQ QHS 11/25/2015 05/29/2016 Inactive dosage increase meclizine 25 mg tablet RxNorm: 519370 1 Tablet(s) PO Q6 PRN TAKE ONE TABLET BY MOUTH EVERY 6 HOURS NEEDED 11/25/2015 02/22/2016 Inactive omeprazole 20 mg cap jacquelyn,delayed release RxNorm: 031508 1 Capsule(s) PO daily 10/06/2015 01/26/2016 In active Toshilpio SoloStar 300 unit/mL (1.5 mL) subcutaneous insulin pen RxNorm: 9291707 35 Unit(s) SQ QHS 08/02/2015 11/24/2015 Inactive dosage increase Vitamin D2 50,000 un it capsule RxNorm: 021192 1 Capsule(s) PO QW 08/02/2015 09/05/2016 Inactive hydrocodone 5 mg-linh taminophen 325 mg tablet RxNorm: 290829 1 Tablet(s) PO Q8 as needed 07/11/2015 12/26/2015 Inactive Xanax 0.5 mg tablet RxNorm: 149014 1 Tablet(s) PO TID 06/30/2015 06/29/2015 Inactive Xanax 0.5 mg tablet RxNorm: 748408 1 Tablet(s) PO TID 06/30/2015 12/25/2015 Inactive hydrocodone 5 mg-linh taminophen 325 mg tablet RxNorm: 331294 1 Tablet(s) PO Q8 as needed 05/06/2015 07/10/2015 Inactive Symbicort 160 mcg-4. 5 mcg/actuation HFA aerosol inhaler RxNorm: 7267732 INH 04/25/2015 No Stop Date Active Levemir FlexTouch 10 0 unit/mL (3 mL) subcutaneous insulin pen RxNorm: 274274 30 Unit(s) SQ QHS 04/25/2015 11/24/2015 Inactive prednisone 20 mg tablet RxNorm: 856930 1 Tablet(s) PO BID 04/25/2015 04/29/2015 Inactive metformin 500 mg tablet RxNorm: 382468 1 Tablet(s) PO daily 04/25/2015 04/03/2016 Inactive amoxicillin 500 mg c apsule RxNorm: 210384 1 Capsule(s) PO TID 04/14/2015 04/13/2015 Inactive amoxicillin 500 mg c apsule RxNorm: 996963 1 Capsule(s) PO TID a nd recommend probiotic tid (otc) 04/14/2015 04/20/2015 Inactive Kenalog 40 mg/mL bartolome pension for injection RxNorm: 0201116 Milliliter(s) Inj 04/12/2015 04/12/2015 In active hydrocodone 5 mg-linh taminophen 325 mg tablet RxNorm: 622917 1 Tablet(s) PO Q8 as needed 03/30/2015 05/05/2015 Inactive Lantus 100 unit/mL s ubcutaneous solution RxNorm: 979869 25 Unit(s) SQ QPM 03/24/2015 04/25/2015 In active meclizine 25 mg tablet RxNorm: 724340 Tablet(s) TAKE ONE TABLET BY MOUTH EVERY 6 HOURS NEEDED 03/08/2015 04/06/2015 Inactive meclizine 25 mg tablet RxNorm: 267988 TAKE ONE TABLET BY MOUTH EVERY 6 HOURS A S NEEDED 02/25/2015 03/03/2015 Inactive Lantus 100 unit/mL s ubcutaneous solution RxNorm: 719381 20 Unit(s) SQ QPM 02/23/2015 03/23/2015 In active Lantus 100 unit/mL s ubcutaneous solution RxNorm: 389747 25 Unit(s) SQ QPM 02/23/2015 02/22/2015 In active hydrocodone 5 mg-linh taminophen 325 mg tablet RxNorm: 408817 1 Tablet(s) PO Q8 as needed 02/17/2015 03/29/2015 Inactive Xanax 0.5 mg tablet RxNorm: 985501 1 Tablet(s) PO TID 02/03/2015 06/29/2015 Inactive Lantus 100 unit/mL s ubcutaneous solution RxNorm: 319753 20 Unit(s) SQ QPM 12/29/2014 02/22/2015 In active Phenergan 12.5 mg re ctal suppository RxNorm: 567731 1 Suppository RTL Q6 PRN 12/23/2014 No Stop Date Active nausea Kenalog 40 mg/mL bartolome pension for injection RxNorm: 2652997 Milliliter(s) Inj 12/23/2014 12/23/2014 In active prednisone 20 mg tablet RxNorm: 135318 2 Tablet(s) PO daily 12/13/2014 12/17/2014 Inactive prednisone 20 mg tablet RxNorm: 494233 2 Tablet(s) PO daily 12/13/2014 12/12/2014 Inactive meclizine 25 mg tablet RxNorm: 759343 1 Tablet(s) PO Q6 PRN 12/09/2014 02/24/2015 Inactive hydrocodone 5 mg-linh taminophen 325 mg tablet RxNorm: 427574 1 Tablet(s) PO Q8 as needed 12/09/2014 02/16/2015 Inactive Vitamin B-12 1,000 m cg/mL oral drops RxNorm: 4153670 1 Milliliter(s) PO d aily No Start Date Active Alphagan P 0.1 % eye drops RxNorm: 698393 1 Drop(s) OPH BID No Start Date Active aspirin 325 mg table t,delayed release RxNorm: 975388 1 Tablet(s) PO daily No Start Date Active Tricor 145 mg tablet RxNorm: 404614 1 Tablet(s) PO daily No Start Date Active vitamin [id number] B1 oral liquid RxNorm: 1,000 Microgram(s) PO daily No Start Date Active atenolol 50 mg tablet RxNorm: 401350 1 Tablet(s) PO daily No Start Date Active Protonix 40 mg table t,delayed release RxNorm: 143882 1 Tablet(s) PO daily No Start Date 04/04/2016 Inactive glipizide 10 mg tablet RxNorm: 477607 1 Tablet(s) PO BID No Start Date 03/22/2015 Inactive Lantus 100 unit/mL s ubcutaneous solution RxNorm: 428484 15 Unit(s) SQ QPM No Start Date 12/28/2014 Inactive lisinopril 10 mg tablet RxNorm: 064303 1 Tablet(s) PO daily No Start Date 01/05/2016 Inactive Vitamin D2 50,000 un it capsule RxNorm: 948444 1 Capsule(s) PO QW No Start Date 08/01/2015 Inactive Toujeo SoloStar 300 unit/mL (1.5 mL) subcutaneous insulin pen RxNorm: 3955479 30 Unit(s) SQ QHS No Start Date 08/01/2015 Inactive simvastatin 40 mg ta blet RxNorm: 901869 1 Tablet(s) PO daily No Start Date 12/27/2015 Inactive testosterone cypiona te 200 mg/mL intramuscular oil RxNorm: 991713 1 Milliliter(s) IM monthly No Start Date 01/16/2018 Inactive hydrocodone 5 mg-linh taminophen 325 mg tablet RxNorm: 394632 1 Tablet(s) PO Q8 as needed No Start Date 12/08/2014 Inactive metformin 500 mg tablet RxNorm: 489955 1 Tablet(s) PO daily No Start Date 04/24/2015 Inactive omeprazole 20 mg cap jacquelyn,delayed release RxNorm: 439372 1 Capsule(s) PO daily No Start Date 10/05/2015 Inactive Flomax 0.4 mg capsule RxNorm: 046119 1 Capsule(s) PO daily No Start Date 03/23/2015 Inactive Medication Administered Medication Codes Instruc tions Start Date Status testosterone cypionate 200 mg/mL intramuscular oil RxNorm: 7305989 Milliliter 12/02/2018 Active testosterone cypionate 200 mg/mL intramuscular oil RxNorm: 6041533 Milliliter 11/18/2018 No longer Active testosterone cypionate 200 mg/mL intramuscular oil RxNorm: 7812660 Milliliter 11/04/2018 No longer Active testosterone cypionate 200 mg/mL intramuscular oil RxNorm: 1033750 Milliliter 10/14/2018 No longer Active testosterone cypionate 200 mg/mL intramuscular oil RxNorm: 6785980 Milliliter 10/03/2018 No longer Active testosterone cypionate 200 mg/mL intramuscular oil RxNorm: 4873770 Milliliter 09/23/2018 No longer Active testosterone cypionate 200 mg/mL intramuscular oil RxNorm: 4086724 1/2Milliliter 09/02/2018 No longer Active testosterone enanthate 200 mg/mL intramuscular oil RxNorm: 756243 Milliliter 08/21/2018 No longer Active testosterone cypionate 200 mg/mL intramuscular oil RxNorm: 8879479 Milliliter 08/08/2018 No longer Active testosterone cypionate 200 mg/mL intramuscular oil RxNorm: 7479931 1/2Milliliter 07/28/2018 No longer Active testosterone cypionate 200 mg/mL intramuscular oil RxNorm: 955241 Milliliter 07/16/2018 No longer Active testosterone cypionate 200 mg/mL intramuscular oil RxNorm: 626599 Milliliter 07/02/2018 No longer Active testosterone cypionate 200 mg/mL intramuscular oil RxNorm: 107947 Milliliter 06/24/2018 No longer Active testosterone cypionate 200 mg/mL intramuscular oil RxNorm: 093505 Milliliter 06/13/2018 No longer Active testosterone cypionate 200 mg/mL intramuscular oil RxNorm: 152139 Milliliter 06/05/2018 No longer Active testosterone cypionate 200 mg/mL intramuscular oil RxNorm: 599661 Milliliter 05/30/2018 No longer Active testosterone cypionate 200 mg/mL intramuscular oil RxNorm: 344011 Milliliter 05/22/2018 No longer Active testosterone cypionate 200 mg/mL intramuscular oil RxNorm: 120477 1/2Milliliter 05/12/2018 No longer Active testosterone cypionate 200 mg/mL intramuscular oil RxNorm: 626176 Milliliter 05/02/2018 No longer Active testosterone cypionate 200 mg/mL intramuscular oil RxNorm: 813523 0.5Milliliter 04/24/2018 No longer Active testosterone cypionate 200 mg/mL intramuscular oil RxNorm: 763495 1/2Milliliter 04/17/2018 No longer Active ketorolac 60 mg/2 mL intramuscular solution RxNorm: 9889371 Milliliter 03/07/2018 No longer Active Kenalog 40 mg/mL suspension for injection RxNorm: 5434607 1.5Milliliter 01/30/2018 No longer Active testosterone cypionate 200 mg/mL intramuscular oil RxNorm: 102492 Milliliter 01/17/2018 No longer Active Kenalog 40 mg/mL suspension for injection RxNorm: 1232468 Milliliter 04/12/2015 No longer Active Kenalog 40 mg/mL suspension for injection RxNorm: 1751546 Milliliter 12/23/2014 No longer Active Immunizations Vaccine [...] 33.4 pg 12/02/2018 Cbc With Differential Ord2 [place]% 8.0 % 12/02/2018 Cbc With Differential Ord2 [...] 2.13 K/ul 12/02/2018 Cbc With Differential Ord2 [place] ABS# 0.6 K/ul 12/02/2018 Cbc With Differential Ord2 Eos ABS# 0.4 K/ul 12/02/2018 Cbc With Differential Ord2 Baso ABS# 0.0 K/ul 12/02/2018 Testosterone Qrn503 Testo 213.5 ng/dL 12/02/2018 A1C Frequency Ael857 A1CF 79381-6 Last A1C performed at [facility] on: 201812/02/2018 Testosterone Gha202 Testo 669.0 ng/dL 09/08/2018 %Hba1C Lqu123 % HbA1c 72667-3 7.4 % 09/08/2018 %Hba1C Pvx875 Gluc Ave 166 mg/dL 09/08/2018 Lipid Ord30 CHOL 114 mg/dL 09/08/2018 Lipid Ord30 HDL 28.0 mg/dl 09/08/2018 Lipid Ord30 TRIG 154 mg/dL 09/08/2018 Lipid Ord30 LDL 55 mg/dL 09/08/2018 Lipid Ord30 C/HDL 4.1 Ratio 09/08/2018 Comp Metabolic Yhb566 NA 137 mEq/L 09/08/2018 Comp Metabolic Gsi686 K 4.3 mEq/L 09/08/2018 Comp Metabolic Ppp802 CL 100 mEq/L 09/08/2018 Comp Metabolic Moi160 CO2 27.0 mEq/L 09/08/2018 Comp Metabolic Puh165 AN ION GAP 14 09/08/2018 Comp Metabolic Sih865 GL UCOSE 85 mg/dL 09/08/2018 Comp Metabolic Zes669 Cr eat 1.1 mg/dL 09/08/2018 Comp Metabolic Cpt226 eG FR 70 ml/min/1.73m2 09/08 Comp Metabolic Ija210 BUN 11 mg/dL 09/08/2018 Comp Metabolic Qtw819 B/ C Ratio 10.3 Ratio 09/08/2018 Comp Metabolic Fxu213 CA LCIUM 9.2 mg/dL 09/08/2018 Comp Metabolic Drc653 AL K PHOS 65 U/L 09/08/2018 Comp Metabolic Lka561 T(SGOT) 16 U/L 09/08/2018 Comp Metabolic Cbl318 AL T(SGPT) 14 U/L 09/08/2018 Comp Metabolic Fvj819 BI LI T 0.6 mg/dL 09/08/2018 Comp Metabolic Euw551 AL BUMIN 4.0 g/dL 09/08/2018 Comp Metabolic Zcm404 TP RO 6.6 g/dL 09/08/2018 Comp Metabolic Vvo244 GL OB 2.6 g/dL 09/08/2018 Comp Metabolic Rzt676 A/ G Ratio 1.6 Ratio 09/08/2018 Comp Metabolic Gwl574 Os mo 272 mOsmo 09/08/2018 Vitamin D 25 Oh Lux0642 VITAMIN D, 25 HYDROXY 37.17 ng/mL 09/08/2018 [...] 33.3 pg 09/08/2018 Cbc With Differential Ord2 [place]% 8.1 % 09/08/2018 Cbc With Differential Ord2 [...] 2.44 K/ul 09/08/2018 Cbc With Differential Ord2 [place] ABS# 0.6 K/ul 09/08/2018 Cbc With Differential Ord2 Eos ABS# 0.3 K/ul 09/08/2018 Cbc With Differential Ord2 Baso ABS# 0.0 K/ul 09/08/2018 Tsh Ord6 TSH (3rd IS) 2.72 uIU/mL 09/08/2018 Comp Metabolic Lts108 NA 139 mEq/L 04/01/2018 Comp Metabolic Qol522 K 4.2 mEq/L 04/01/2018 Comp Metabolic Uwr978 CL 102 mEq/L 04/01/2018 Comp Metabolic Xjo976 CO2 29.0 mEq/L 04/01/2018 Comp Metabolic Jkf382 AN ION GAP 12 04/01/2018 Comp Metabolic Vrg188 GL UCOSE 87 mg/dL 04/01/2018 Comp Metabolic Ryl818 Cr eat 1.1 mg/dL 04/01/2018 Comp Metabolic Ffe835 eG FR 70 ml/min/1.73m2 04/01 Comp Metabolic Pre640 BUN 21 mg/dL 04/01/2018 Comp Metabolic Can041 B/ C Ratio 19.4 Ratio 04/01/2018 Comp Metabolic Jco970 CA LCIUM 9.1 mg/dL 04/01/2018 Comp Metabolic Hvx344 AL K PHOS 60 U/L 04/01/2018 Comp Metabolic Sly767 T(SGOT) 15 U/L 04/01/2018 Comp Metabolic Qzw489 AL T(SGPT) 18 U/L 04/01/2018 Comp Metabolic Ykg308 BI LI T 0.4 mg/dL 04/01/2018 Comp Metabolic Xzi256 AL BUMIN 4.0 g/dL 04/01/2018 Comp Metabolic Glu542 TP RO 6.5 g/dL 04/01/2018 Comp Metabolic Ycb591 GL OB 2.5 g/dL 04/01/2018 Comp Metabolic Stb590 A/ G Ratio 1.6 Ratio 04/01/2018 Comp Metabolic Yah394 Os mo 280 mOsmo 04/01/2018 Lipid Ord30 [...] 34.3 pg 04/01/2018 Cbc With Differential Ord2 [place]% 6.0 % 04/01/2018 Cbc With Differential Ord2 [...] 3.25 K/ul 04/01/2018 Cbc With Differential Ord2 [place] ABS# 0.6 K/ul 04/01/2018 Cbc With Differential Ord2 Eos ABS# 0.4 K/ul 04/01/2018 Cbc With Differential Ord2 Baso ABS# 0.0 K/ul 04/01/2018 %Hba1C Dwq709 % HbA1c 85710-6 8.0 % 04/01/2018 %Hba1C Cde057 Gluc Ave 183 mg/dL 04/01/2018 Testosterone Jny759 Testo 111.3 ng/dL 04/01/2018 Testosterone Myf958 Testo 135.4 ng/dL 01/14/2018 Cbc With Differential [...] 36.0 pg 01/14/2018 Cbc With Differential Ord2 [place]% 6.8 % 01/14/2018 Cbc With Differential Ord2 [...] 2.71 K/ul 01/14/2018 Cbc With Differential Ord2 [place] ABS# 0.8 K/ul 01/14/2018 Cbc With Differential Ord2 Eos ABS# 0.2 K/ul 01/14/2018 Cbc With Differential Ord2 Baso ABS# 0.0 K/ul 01/14/2018 Comp Metabolic Dpb358 NA 134 mEq/L 11/20/2017 Comp Metabolic Alv570 K 4.4 mEq/L 11/20/2017 Comp Metabolic Sef462 CL 99 mEq/L 11/20/2017 Comp Metabolic Nju588 CO2 29.0 mEq/L 11/20/2017 Comp Metabolic Wrg757 AN ION GAP 10 11/20/2017 Comp Metabolic Utj422 GL UCOSE 218 mg/dL 11/20/2017 Comp Metabolic Hvw331 Cr eat 1.0 mg/dL 11/20/2017 Comp Metabolic Jnd377 eG FR 78 ml/min/1.73m2 11/20 Comp Metabolic Ipl325 BUN 13 mg/dL 11/20/2017 Comp Metabolic Wiz365 B/ C Ratio 13.3 Ratio 11/20/2017 Comp Metabolic Ssd741 CA LCIUM 9.0 mg/dL 11/20/2017 Comp Metabolic Zwa006 AL K PHOS 71 U/L 11/20/2017 Comp Metabolic Tqq492 T(SGOT) 18 U/L 11/20/2017 Comp Metabolic Rto826 AL T(SGPT) 17 U/L 11/20/2017 Comp Metabolic Djk041 BI LI T 0.4 mg/dL 11/20/2017 Comp Metabolic Cds175 AL BUMIN 4.1 g/dL 11/20/2017 Comp Metabolic Ren646 TP RO 6.5 g/dL 11/20/2017 Comp Metabolic Jye931 GL OB 2.4 g/dL 11/20/2017 Comp Metabolic Eog658 A/ G Ratio 1.8 Ratio 11/20/2017 Comp Metabolic Uvx810 Os mo 275 mOsmo 11/20/2017 Cbc With [...] 35.2 pg 11/20/2017 Cbc With Differential Ord2 [place]% 7.2 % 11/20/2017 Cbc With Differential Ord2 [...] 3.34 K/ul 11/20/2017 Cbc With Differential Ord2 [place] ABS# 0.6 K/ul 11/20/2017 Cbc With Differential Ord2 Eos ABS# 0.3 K/ul 11/20/2017 Cbc With Differential Ord2 Baso ABS# 0.0 K/ul 11/20/2017 Vitamin D 25 Oh Krm0357 VITAMIN D, 25 HYDROXY 43.72 ng/mL 11/20/2017 %Hba1C Uck531 % HbA1c 68682-3 7.4 % 11/20/2017 %Hba1C Xao879 Gluc Ave 166 mg/dL 11/20/2017 %Hba1C Xew351 % HbA1c 64297-3 7.2 % 08/20/2017 %Hba1C Uhu139 Gluc Ave 160 mg/dL 08/20/2017 Lipid Ord30 [...] 34.7 pg 08/20/2017 Cbc With Differential Ord2 [place]% 7.6 % 08/20/2017 Cbc With Differential Ord2 [...] 2.42 K/ul 08/20/2017 Cbc With Differential Ord2 [place] ABS# 0.6 K/ul 08/20/2017 Cbc With Differential Ord2 Eos ABS# 0.3 K/ul 08/20/2017 Cbc With Differential Ord2 Baso ABS# 0.0 K/ul 08/20/2017 Tsh Ord6 hTSH II 2.27 uIU/mL 08/20/2017 Comp Metabolic Ngs323 NA 138 mEq/L 08/20/2017 Comp Metabolic Gei210 K 4.3 mEq/L 08/20/2017 Comp Metabolic Cvd748 CL 102 mEq/L 08/20/2017 Comp Metabolic Yir769 CO2 29.0 mEq/L 08/20/2017 Comp Metabolic Rwd409 AN ION GAP 11 08/20/2017 Comp Metabolic Iip681 GL UCOSE 89 mg/dL 08/20/2017 Comp Metabolic Kme459 Cr eat 1.0 mg/dL 08/20/2017 Comp Metabolic Gpg698 eG FR 80 ml/min/1.73m2 08/20 Comp Metabolic Xxm355 BUN 13 mg/dL 08/20/2017 Comp Metabolic Tgl227 B/ C Ratio 13.5 Ratio 08/20/2017 Comp Metabolic Pbg798 CA LCIUM 9.2 mg/dL 08/20/2017 Comp Metabolic Kvu526 AL K PHOS 69 U/L 08/20/2017 Comp Metabolic Jsi818 T(SGOT) 18 U/L 08/20/2017 Comp Metabolic Uzi692 AL T(SGPT) 19 U/L 08/20/2017 Comp Metabolic Nhh542 BI LI T 0.6 mg/dL 08/20/2017 Comp Metabolic Gze327 AL BUMIN 4.0 g/dL 08/20/2017 Comp Metabolic Fvo782 TP RO 6.6 g/dL 08/20/2017 Comp Metabolic Dby604 GL OB 2.6 g/dL 08/20/2017 Comp Metabolic Yzd641 A/ G Ratio 1.5 Ratio 08/20/2017 Comp Metabolic Ctj272 Os mo 275 mOsmo 08/20/2017 Vitamin D 25 Oh Dom3327 VITAMIN D, 25 HYDROXY 30.96 ng/mL 08/20/2017 B12 Teo367 B12 >1500.00 pg/ml 02/22/2017 Cbc With Differential [...] 35.7 pg 02/20/2017 Cbc With Differential Ord2 [place]% 6.3 % 02/20/2017 Cbc With Differential Ord2 [...] 3.19 K/ul 02/20/2017 Cbc With Differential Ord2 [place] ABS# 0.5 K/ul 02/20/2017 Cbc With Differential Ord2 Eos ABS# 0.4 K/ul 02/20/2017 Cbc With Differential Ord2 Baso ABS# 0.0 K/ul 02/20/2017 Comp Metabolic Xpx303 NA 138 mEq/L 02/20/2017 Comp Metabolic Eft367 K 4.5 mEq/L 02/20/2017 Comp Metabolic Wyv925 CL 101 mEq/L 02/20/2017 Comp Metabolic Glm766 CO2 31.0 mEq/L 02/20/2017 Comp Metabolic Uvt630 AN ION GAP 11 02/20/2017 Comp Metabolic Ffv773 GL UCOSE 120 mg/dL 02/20/2017 Comp Metabolic Baj274 Cr eat 0.9 mg/dL 02/20/2017 Comp Metabolic Krx559 eG FR 83 ml/min/1.73m2 02/20 Comp Metabolic Uwn561 BUN 15 mg/dL 02/20/2017 Comp Metabolic Pyw253 B/ C Ratio 16.1 Ratio 02/20/2017 Comp Metabolic Iag498 CA LCIUM 9.1 mg/dL 02/20/2017 Comp Metabolic Ljv886 AL K PHOS 67 U/L 02/20/2017 Comp Metabolic Jfx532 T(SGOT) 15 U/L 02/20/2017 Comp Metabolic Sxf029 AL T(SGPT) 16 U/L 02/20/2017 Comp Metabolic Rir793 BI LI T 0.5 mg/dL 02/20/2017 Comp Metabolic Yuk587 AL BUMIN 4.0 g/dL 02/20/2017 Comp Metabolic Aui925 TP RO 6.4 g/dL 02/20/2017 Comp Metabolic Abs414 GL OB 2.4 g/dL 02/20/2017 Comp Metabolic Wmj755 A/ G Ratio 1.7 Ratio 02/20/2017 Comp Metabolic Oqq817 Os mo 278 mOsmo 02/20/2017 Tsh Ord6 hTSH II 2.05 uIU/mL 02/20/2017 %Hba1C Btj689 % HbA1c 09485-0 7.6 % 02/20/2017 %Hba1C Axj993 Gluc Ave 171 mg/dL 02/20/2017 Vitamin D 25 Oh Gmv8512 VITAMIN D, 25 HYDROXY 44.40 ng/mL 12/21/2016 Comp Metabolic Wsn182 NA 131 mEq/L 12/21/2016 Comp Metabolic Txp912 K 4.2 mEq/L 12/21/2016 Comp Metabolic Gnb690 CL 97 mEq/L 12/21/2016 Comp Metabolic Fce244 CO2 27.0 mEq/L 12/21/2016 Comp Metabolic Etb323 AN ION GAP 11 12/21/2016 Comp Metabolic Bqm078 GL UCOSE 266 mg/dL 12/21/2016 Comp Metabolic Ccd616 Cr eat 0.9 mg/dL 12/21/2016 Comp Metabolic Ebt089 eG FR 88 ml/min/1.73m2 12/21 Comp Metabolic Aez223 BUN 12 mg/dL 12/21/2016 Comp Metabolic Gaq225 B/ C Ratio 13.6 Ratio 12/21/2016 Comp Metabolic Yio644 CA LCIUM 8.6 mg/dL 12/21/2016 Comp Metabolic Maq321 AL K PHOS 69 U/L 12/21/2016 Comp Metabolic Dyl606 T(SGOT) 15 U/L 12/21/2016 Comp Metabolic Ocd263 AL T(SGPT) 14 U/L 12/21/2016 Comp Metabolic Qrg243 BI LI T 0.3 mg/dL 12/21/2016 Comp Metabolic Ixj434 AL BUMIN 3.7 g/dL 12/21/2016 Comp Metabolic Rev896 TP RO 5.9 g/dL 12/21/2016 Comp Metabolic Ypl197 GL OB 2.2 g/dL 12/21/2016 Comp Metabolic Zwv852 A/ G Ratio 1.7 Ratio 12/21/2016 Comp Metabolic Gdj960 Os mo 272 mOsmo 12/21/2016 Cbc With [...] 34.6 pg 12/21/2016 Cbc With Differential Ord2 [place]% 6.9 % 12/21/2016 Cbc With Differential Ord2 [...] 2.05 K/ul 12/21/2016 Cbc With Differential Ord2 [place] ABS# 0.4 K/ul 12/21/2016 Cbc With Differential Ord2 Eos ABS# 0.2 K/ul 12/21/2016 Cbc With Differential Ord2 Baso ABS# 0.0 K/ul 12/21/2016 Comp Metabolic Fny700 NA 138 mEq/L 09/03/2016 Comp Metabolic Aaw668 K 4.5 mEq/L 09/03/2016 Comp Metabolic Jrt838 CL 102 mEq/L 09/03/2016 Comp Metabolic Uea100 CO2 30.0 mEq/L 09/03/2016 Comp Metabolic Xyj539 AN ION GAP 11 09/03/2016 Comp Metabolic Jko358 GL UCOSE 113 mg/dL 09/03/2016 Comp Metabolic Lvs443 Cr eat 1.0 mg/dL 09/03/2016 Comp Metabolic Ded321 eG FR 81 ml/min/1.73m2 09/03 Comp Metabolic Soj870 BUN 10 mg/dL 09/03/2016 Comp Metabolic Njv988 B/ C Ratio 10.5 Ratio 09/03/2016 Comp Metabolic Ver503 CA LCIUM 9.1 mg/dL 09/03/2016 Comp Metabolic Zqd817 AL K PHOS 71 U/L 09/03/2016 Comp Metabolic Qgl467 T(SGOT) 18 U/L 09/03/2016 Comp Metabolic Sdt511 AL T(SGPT) 17 U/L 09/03/2016 Comp Metabolic Neb629 BI LI T 0.6 mg/dL 09/03/2016 Comp Metabolic Wue889 AL BUMIN 4.1 g/dL 09/03/2016 Comp Metabolic Kzh114 TP RO 6.4 g/dL 09/03/2016 Comp Metabolic Ubg801 GL OB 2.3 g/dL 09/03/2016 Comp Metabolic Jzu479 A/ G Ratio 1.8 Ratio 09/03/2016 Comp Metabolic Tft103 Os mo 276 mOsmo 09/03/2016 Vitamin D 25 Oh Jrs5858 VITAMIN D, 25 HYDROXY 28.23 ng/mL 09/03/2016 [...] 34.4 pg 09/03/2016 Cbc With Differential Ord2 [place]% 8.9 % 09/03/2016 Cbc With Differential Ord2 [...] 3.34 K/ul 09/03/2016 Cbc With Differential Ord2 [place] ABS# 0.7 K/ul 09/03/2016 Cbc With Differential Ord2 Eos ABS# 0.4 K/ul 09/03/2016 Cbc With Differential Ord2 Baso ABS# 0.0 K/ul 09/03/2016 Lipid Ord30 CHOL 120 mg/dL 09/03/2016 Lipid Ord30 HDL 33.0 mg/dl 09/03/2016 Lipid Ord30 TRIG 161 mg/dL 09/03/2016 Lipid Ord30 LDL 55 mg/dL 09/03/2016 Lipid Ord30 C/HDL 3.6 Ratio 09/03/2016 %Hba1C Izb446 % HbA1c 36852-1 7.5 % 09/03/2016 %Hba1C Gwl559 Gluc Ave 169 mg/dL 09/03/2016 Tsh Ord6 hTSH II 1.50 uIU/mL 05/23/2016 %Hba1C Ayr335 % HbA1c 41487-6 7.6 % 05/23/2016 %Hba1C Xer886 Gluc Ave 171 mg/dL 05/23/2016 Comp Metabolic Udm730 NA 135 mEq/L 05/23/2016 Comp Metabolic Jic157 K 4.4 mEq/L 05/23/2016 Comp Metabolic Sfw442 CL 99 mEq/L 05/23/2016 Comp Metabolic Ace611 CO2 28.0 mEq/L 05/23/2016 Comp Metabolic Jae670 AN ION GAP 12 05/23/2016 Comp Metabolic Eiz033 GL UCOSE 257 mg/dL 05/23/2016 Comp Metabolic Ukz673 Cr eat 0.8 mg/dL 05/23/2016 Comp Metabolic Llp765 eG FR 95 ml/min/1.73m2 05/23 Comp Metabolic Ivg269 BUN 11 mg/dL 05/23/2016 Comp Metabolic Hzj667 B/ C Ratio 13.3 Ratio 05/23/2016 Comp Metabolic Rzu642 CA LCIUM 9.0 mg/dL 05/23/2016 Comp Metabolic Leq559 AL K PHOS 82 U/L 05/23/2016 Comp Metabolic Lpl707 T(SGOT) 21 U/L 05/23/2016 Comp Metabolic Aob007 AL T(SGPT) 20 U/L 05/23/2016 Comp Metabolic Mtt998 BI LI T 0.3 mg/dL 05/23/2016 Comp Metabolic Tai776 AL BUMIN 4.0 g/dL 05/23/2016 Comp Metabolic Avx516 TP RO 6.4 g/dL 05/23/2016 Comp Metabolic Box790 GL OB 2.4 g/dL 05/23/2016 Comp Metabolic Kwu753 A/ G Ratio 1.6 Ratio 05/23/2016 Comp Metabolic Fos174 Os mo 278 mOsmo 05/23/2016 Cbc With [...] 34.5 pg 05/23/2016 Cbc With Differential Ord2 [place]% 6.1 % 05/23/2016 Cbc With Differential Ord2 [...] 2.38 K/ul 05/23/2016 Cbc With Differential Ord2 [place] ABS# 0.4 K/ul 05/23/2016 Cbc With Differential Ord2 Eos ABS# 0.2 K/ul 05/23/2016 Cbc With Differential Ord2 Baso ABS# 0.0 K/ul 05/23/2016 B12 Tqg737 B12 597.00 pg/ml 05/23/2016 Metabolic Ord15 NA [...] 0.92 uIU/mL 07/29/2015 Vitamin D 25 Oh Wby7393 VITAMIN D, 25 HYDROXY 26.93 ng/mL 07/29/2015 %Hba1C Rba908 % HbA1c 32333-8 8.8 % 07/29/2015 %Hba1C Xfi941 Gluc Ave 206 mg/dL 07/29/2015 Cbc With [...] Ord2 RDW 14.9 % 07/29/2015 Comp Metabolic Dnt377 NA 138 mEq/L 07/29/2015 Comp Metabolic Ozn715 K 4.4 mEq/L 07/29/2015 Comp Metabolic Qmh829 CL 102 mEq/L 07/29/2015 Comp Metabolic Urb082 CO2 28.0 mEq/L 07/29/2015 Comp Metabolic Jub540 AN ION GAP 12 07/29/2015 Comp Metabolic Zqt479 GL UCOSE 261 mg/dL 07/29/2015 Comp Metabolic Gfj243 Cr eat 1.0 mg/dL 07/29/2015 Comp Metabolic Tjb390 eG FR 77 ml/min/1.73m2 07/29 Comp Metabolic Uda963 BUN 13 mg/dL 07/29/2015 Comp Metabolic Eua512 B/ C Ratio 13.0 Ratio 07/29/2015 Comp Metabolic Vdo464 CA LCIUM 9.1 mg/dL 07/29/2015 Comp Metabolic Run413 AL K PHOS 64 U/L 07/29/2015 Comp Metabolic Vrg439 T(SGOT) 20 U/L 07/29/2015 Comp Metabolic Gik029 AL T(SGPT) 22 U/L 07/29/2015 Comp Metabolic Jzs908 BI LI T 0.4 mg/dL 07/29/2015 Comp Metabolic Sqj693 AL BUMIN 4.0 g/dL 07/29/2015 Comp Metabolic Flb336 TP RO 6.1 g/dL 07/29/2015 Comp Metabolic Hhd027 GL OB 2.1 g/dL 07/29/2015 Comp Metabolic Ssu414 A/ G Ratio 1.9 Ratio 07/29/2015 Comp Metabolic Pwd580 Os mo 285 mOsmo 07/29/2015 Cbc With [...] Ord2 RDW 13.1 % 05/06/2015 Comp Metabolic Pmf707 NA 134 mEq/L 05/06/2015 Comp Metabolic Akf134 K 4.4 mEq/L 05/06/2015 Comp Metabolic Srd571 CL 98 mEq/L 05/06/2015 Comp Metabolic Nko072 CO2 29.0 mEq/L 05/06/2015 Comp Metabolic Czx937 AN ION GAP 11 05/06/2015 Comp Metabolic Swc602 GL UCOSE 321 mg/dL 05/06/2015 Comp Metabolic Dgj365 Cr eat 1.0 mg/dL 05/06/2015 Comp Metabolic Pfj664 eG FR 78 ml/min/1.73m2 05/06 Comp Metabolic Hqz560 BUN 20 mg/dL 05/06/2015 Comp Metabolic Wcx712 B/ C Ratio 20.4 Ratio 05/06/2015 Comp Metabolic Pxp561 CA LCIUM 9.5 mg/dL 05/06/2015 Comp Metabolic Ala253 AL K PHOS 62 U/L 05/06/2015 Comp Metabolic Oaz812 T(SGOT) 21 U/L 05/06/2015 Comp Metabolic Tzd327 AL T(SGPT) 37 U/L 05/06/2015 Comp Metabolic Kpw563 BI LI T 0.4 mg/dL 05/06/2015 Comp Metabolic Pqv229 AL BUMIN 3.8 g/dL 05/06/2015 Comp Metabolic Ojm612 TP RO 6.1 g/dL 05/06/2015 Comp Metabolic Myf315 GL OB 2.3 g/dL 05/06/2015 Comp Metabolic Ikc792 A/ G Ratio 1.7 Ratio 05/06/2015 Comp Metabolic Peo010 Os mo 283 mOsmo 05/06/2015 Tsh Ord6 hTSH II 1.65 uIU/mL 02/18/2015 B12 Uqg840 B12 605.00 pg/ml 02/18/2015 %Hba1C Lsi793 % HbA1c 63673-4 8.3 % 02/18/2015 %Hba1C Lwm086 Gluc Ave 192 mg/dL 02/18/2015 Cbc With [...] Ord2 RDW 13.9 % 02/17/2015 Comp Metabolic Eig426 NA 137 mEq/L 02/17/2015 Comp Metabolic Xmf795 K 4.4 mEq/L 02/17/2015 Comp Metabolic Cqz441 CL 100 mEq/L 02/17/2015 Comp Metabolic Zln722 CO2 31.0 mEq/L 02/17/2015 Comp Metabolic Unp797 AN ION GAP 10 02/17/2015 Comp Metabolic Grm480 GL UCOSE 307 mg/dL 02/17/2015 Comp Metabolic Cbs515 Cr eat 1.0 mg/dL 02/17/2015 Comp Metabolic Kdx367 eG FR 74 ml/min/1.73m2 02/17 Comp Metabolic Vgw809 BUN 22 mg/dL 02/17/2015 Comp Metabolic Byk986 B/ C Ratio 21.4 Ratio 02/17/2015 Comp Metabolic Dtg056 CA LCIUM 9.5 mg/dL 02/17/2015 Comp Metabolic Nbj777 AL K PHOS 78 U/L 02/17/2015 Comp Metabolic Uol975 T(SGOT) 18 U/L 02/17/2015 Comp Metabolic Flv829 AL T(SGPT) 32 U/L 02/17/2015 Comp Metabolic Jnj780 BI LI T 0.5 mg/dL 02/17/2015 Comp Metabolic Dcq024 AL BUMIN 4.3 g/dL 02/17/2015 Comp Metabolic Wum415 TP RO 6.7 g/dL 02/17/2015 Comp Metabolic Mqq541 GL OB 2.4 g/dL 02/17/2015 Comp Metabolic Hxc877 A/ G Ratio 1.8 Ratio 02/17/2015 Comp Metabolic Flq344 Os mo 289 mOsmo 02/17/2015 Review of [...] inspection of skin Location: face 03/07/2015 on protestant, cheeks,actinic keratosis with irritation on left cheek - left protestant - croptherapy on these two lesions - [...] Procedure Codes Date THER/PROPH/DIAG INJ SC/IM CPT-4: 17471 12/02/2018 THER/PROPH/DIAG INJ SC/IM CPT-4: 04494 11/18/2018 THER/PROPH/DIAG INJ SC/IM CPT-4: 66625 11/04/2018 THER/PROPH/DIAG INJ SC/IM CPT-4: 98862 10/14/2018 THER/PROPH/DIAG INJ SC/IM CPT-4: 94457 10/03/2018 THER/PROPH/DIAG INJ SC/IM CPT-4: 93638 09/23/2018 THER/PROPH/DIAG INJ SC/IM CPT-4: 70721 09/02/2018 THER/PROPH/DIAG INJ SC/IM CPT-4: 09809 08/21/2018 THER/PROPH/DIAG INJ SC/IM CPT-4: 65992 08/08/2018 THER/PROPH/DIAG INJ SC/IM CPT-4: 11108 07/28/2018 THER/PROPH/DIAG INJ SC/IM CPT-4: 54849 07/16/2018 THER/PROPH/DIAG INJ SC/IM CPT-4: 10695 07/02/2018 PPPS, SUBSEQ VISIT CPT- 4: G0439 06/30/2018 THER/PROPH/DIAG INJ SC/IM CPT-4: 81608 06/24/2018 THER/PROPH/DIAG INJ SC/IM CPT-4: 75711 06/13/2018 ADMIN INFLUENZA VIRU S VAC CPT-4: G0008 06/06/2018 FLU VACC PRSV FREE I NC ANTIG CPT-4: 95397 06/06/2018 THER/PROPH/DIAG INJ SC/IM CPT-4: 62257 06/05/2018 THER/PROPH/DIAG INJ SC/IM CPT-4: 53032 05/30/2018 THER/PROPH/DIAG INJ SC/IM CPT-4: 39054 05/22/2018 THER/PROPH/DIAG INJ SC/IM CPT-4: 64286 05/12/2018 THER/PROPH/DIAG INJ SC/IM CPT-4: 62667 05/02/2018 THER/PROPH/DIAG INJ SC/IM CPT-4: 52892 04/24/2018 THER/PROPH/DIAG INJ SC/IM CPT-4: 96843 04/17/2018 KETOROLAC TROMETHAMI NE INJ CPT-4: J1885 03/07/2018 URINALYSIS NONAUTO W /O SCOPE CPT-4: 95634 03/07/2018 THER/PROPH/DIAG INJ SC/IM CPT-4: 57926 02/20/2018 TRIAMCINOLONE ACET I [place] NOS CPT-4: J3301 01/30/2018 THER/PROPH/DIAG INJ SC/IM CPT-4: 03129 01/17/2018 TOBACCO-USE SHAPE HAND 3-[address]: 339255829 CPT-4: G0436 04/25/2017 ADMIN INFLUENZA VIRU S VAC CPT-4: G0008 04/25/2017 ADMIN PNEUMOCOCCAL V ACCINE SNOMED CT: 12102887 CPT-4: G0009 04/25/2017 PNEUMOCOCCAL VACC [address]: 51725390 CPT-4: 62785 04/25/2017 FLU VACC PRSV FREE I NC ANTIG CPT-4: 93073 04/25/2017 ADMIN INFLUENZA VIRU S VAC CPT-4: G0008 05/22/2016 FLU VACC 4 TELLY 3 YRS PLUS IM Formatting Model/CDA Sections, Assigned to/Angela Clemons SNOMED CT: 30246118 CPT-4: 68915Qxkwqwg 05/22/2016 TOBACCO-USE SHAPE HAND 3-[address]: 540143372 CPT-4: G0436 11/25/2015 URINALYSIS NONAUTO W /O SCOPE CPT-4: 68310 05/09/2015 TRIAMCINOLONE ACET I [place] NOS CPT-4: J3301 04/12/2015 DESTRUCT PREMALG LESION CPT-4: 61815 03/07/2015 DESTRUCT PREMALG LES 2-14 CPT-4: 17698 03/07/2015 REMOVE IMPACTED EAR WAX UNI CPT-4: 09230 12/31/2014 THER/PROPH/DIAG INJ SC/IM CPT-4: 91380 12/23/2014 TRIAMCINOLONE ACET I [place] NOS CPT-4: J3301 12/23/2014 Vital Signs Date Vital 12/02/2018 Blood Pressure 1: 140/70 Code: 8480-6 BMI: 21.9 Code: 47096-7 Heart Rate 1: 61 bpm Height: 5'11" SpO2: 94% Weight: 157 lbs 10/17/2018 Blood Pressure 1: 124/54 Code: 8480-6 BMI: 21.9 Code: 56159-6 Heart Rate 1: 64 bpm Height: 5'11" SpO2: 93% Weight: 157 lbs 09/02/2018 Blood Pressure 1: 140/80 Code: 8480-6 BMI: 21.2 Code: 90942-0 Heart Rate 1: 68 bpm Height: 5'11" SpO2: 97% Weight: 152 lbs 06/30/2018 BMI: 21.8 Code: 23846-5 Height: 5'11" Weight: 156 lbs 06/06/2018 Blood Pressure 1: 128/76 Code: 8480-6 BMI: 22.0 Code: 80836-2 Heart Rate 1: 81 bpm Height: 5'11" SpO2: 92% Weight: 158 lbs 04/04/2018 Blood Pressure 1: 124/70 Code: 8480-6 BMI: 20.8 Code: 20560-9 Heart Rate 1: 65 bpm Height: 5'11" SpO2: 95% Weight: 149 lbs 03/07/2018 Blood Pressure 1: 148/70 Code: 8480-6 BMI: 21.2 Code: 17207-3 Heart Rate 1: 66 bpm Height: 5'11" SpO2: 94% Weight: 152 lbs 02/20/2018 Blood Pressure 1: 134/58 Code: 8480-6 BMI: 20.5 Code: 29323-3 Heart Rate 1: 61 bpm Height: 5'11" SpO2: 92% Weight: 147 lbs 01/30/2018 Blood Pressure 1: 158/68 Code: 8480-6 BMI: 21.5 Code: 65126-5 Heart Rate 1: 71 bpm Height: 5'11" SpO2: 92% Weight: 154 lbs 01/14/2018 Blood Pressure 1: 156/70 Code: 8480-6 Height: Weight: 01/13/2018 Blood Pressure 1: 148/62 Code: 8480-6 BMI: 20.9 Code: 77258-9 Heart Rate 1: 54 bpm Height: 5'11" SpO2: 97% Weight: 150 lbs 11/19/2017 Blood Pressure 1: 150/60 Code: 8480-6 BMI: 21.8 Code: 33212-0 Heart Rate 1: 63 bpm Height: 5'11" SpO2: 98% Weight: 156 lbs 10/02/2017 Blood Pressure 1: 168/60 Code: 8480-6 BMI: 21.9 Code: 06515-7 Heart Rate 1: 52 bpm Height: 5'11" SpO2: 97% Weight: 157 lbs 07/23/2017 Blood Pressure 1: 170/70 Code: 8480-6 BMI: 21.8 Code: 93009-1 Heart Rate 1: 65 bpm Height: 5'11" SpO2: 98% Weight: 156 lbs 04/25/2017 Blood Pressure 1: 138/60 Code: 8480-6 BMI: 21.6 Code: 21869-8 Heart Rate 1: 55 bpm Height: 5'11" SpO2: 93% Weight: 155 lbs 02/19/2017 Blood Pressure 1: 138/64 Code: 8480-6 BMI: 21.3 Code: 11605-2 Heart Rate 1: 52 bpm Height: 5'11" SpO2: 96% Weight: 152 lbs 8 oz 01/21/2017 Blood Pressure 1: 160/68 Code: 8480-6 BMI: 21.3 Code: 24575-6 Heart Rate 1: 62 bpm Height: 5'11" SpO2: 96% Weight: 153 lbs 12/20/2016 Blood Pressure 1: 124/66 Code: 8480-6 BMI: 21.5 Code: 00187-6 Height: 5'11" Weight: 154 lbs 08/23/2016 Blood Pressure 1: 142/52 Code: 8480-6 BMI: 21.2 Code: 98038-0 Heart Rate 1: 54 bpm Height: 5'11" SpO2: 96% Weight: 152 lbs 05/22/2016 Blood Pressure 1: 130/76 Code: 8480-6 BMI: 21.5 Code: 85736-1 Heart Rate 1: 78 bpm Height: 5'11" SpO2: 92% Weight: 154 lbs 02/24/2016 Blood Pressure 1: 128/80 Code: 8480-6 BMI: 21.2 Code: 30951-1 Heart Rate 1: 74 bpm Height: 5'11" SpO2: 96% Weight: 152 lbs 01/27/2016 Blood Pressure 1: 144/60 Code: 8480-6 BMI: 21.2 Code: 69232-3 Heart Rate 1: 74 bpm Height: 5'11" SpO2: 97% Weight: 152 lbs 11/25/2015 Blood Pressure 1: 110/52 Code: 8480-6 BMI: 21.9 Code: 56317-0 Heart Rate 1: 65 bpm Height: 5'11" SpO2: 92% Weight: 157 lbs 07/28/2015 Blood Pressure 1: 138/62 Code: 8480-6 BMI: 21.8 Code: 20014-3 Heart Rate 1: 63 bpm Height: 5'11" SpO2: 91% Weight: 156 lbs 05/26/2015 Blood Pressure 1: 120/58 Code: 8480-6 BMI: 21.5 Code: 91037-2 Heart Rate 1: 99 bpm Height: 5'11" SpO2: 96% Weight: 154 lbs 05/06/2015 Blood Pressure 1: 120/58 Code: 8480-6 BMI: 21.2 Code: 81314-1 Heart Rate 1: 66 bpm Height: 5'11" SpO2: 96% Weight: 152 lbs 04/25/2015 Blood Pressure 1: 136/62 Code: 8480-6 BMI: 21.2 Code: 25890-3 Heart Rate 1: 63 bpm Height: 5'11" SpO2: 97% Weight: 152 lbs 04/12/2015 Blood Pressure 1: 160/58 Code: 8480-6 BMI: 21.6 Code: 44643-8 Heart Rate 1: 62 bpm Height: 5'11" Weight: 155 lbs 03/24/2015 Blood Pressure 1: 138/68 Code: 8480-6 BMI: 22.0 Code: 79570-7 Heart Rate 1: 65 bpm Height: 5'11" SpO2: 96% Weight: 158 lbs 03/07/2015 Blood Pressure 1: 116/52 Code: 8480-6 BMI: 22.2 Code: 67692-3 Heart Rate 1: 64 bpm Height: 5'11" SpO2: 97% Weight: 159 lbs 02/17/2015 Blood Pressure 1: 148/58 Code: 8480-6 BMI: 21.3 Code: 85774-0 Heart Rate 1: 63 bpm Height: 5'11" SpO2: 97% Weight: 153 lbs 12/31/2014 Blood Pressure 1: 100/60 Code: 8480-6 BMI: 21.8 Code: 55483-7 Heart Rate 1: 68 bpm Height: 5'11" Weight: 156 lbs 12/23/2014 Blood Pressure 1: 148/64 Code: 8480-6 BMI: 21.9 Code: 65108-8 Heart Rate 1: 64 bpm Height: 5'11" [...] Encounters Encounter Performer Loca tion Codes Date [id number]) [id number] EST. P ATIENT, LEVEL IV Diagnosis: Chronic obstructive pulmonary disease, unspecified[ICD10: J44.9] Diagnosis: Type 2 diabetes mellitus with hyperglycemia[ICD10: E11.65] Diagnosis: Testicular dysfunction, unspecified[ICD10: E29.9] Diagnosis: Other insomnia[ICD10: G47.09] Karmen Ash MD, [facility] CPT- 4: 12740 12/02/2018 ([id number] 72774 EST. P ATIENT, LEVEL III Diagnosis: Orthostatic hypotension[ICD10: I95.1] Diagnosis: Low back pain[ICD10: M54.5] Diagnosis: Unsteadiness on feet[ICD10: R26.81] Karmen Ash MD, [facility] CPT-4: 73040 10/17/2018 ([id number]) 76248 EST. 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 P ATIENT, LEVEL IV Diagnosis: Cellulitis of face[ICD10: L03.211] Diagnosis: Type 2 diabetes mellitus without complications[ICD10: E11.9] Diagnosis: Essential (primary) hypertension[ICD10: I10] Diagnosis: Encounter for immunization[ICD10: Z23] Karmen Ash MD, [facility] CPT-4: 47193 06/06/2018 ([id number]) 94123 EST. 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 P ATIENT, LEVEL III Diagnosis: Low back pain[ICD10: M54.5] Diagnosis: Dysuria[ICD10: R30.0] Karmen Ash MD, [facility] CPT-4: 39196 03/07/2018 ([id number]) 72838 EST. 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 P ATIENT, LEVEL III Diagnosis: Chronic obstructive pulmonary disease with (acute) exacerbation[ICD10: J44.1] Karmen Ash MD, [facility] CPT-4: 04850 01/30/2018 97795 EST. PATIENT, LEVEL II Diagnosis: Insect bite (nonvenomous), left lower leg, initial encounter[ICD10: S80.862A] Karmen Ash MD, [facility] CPT-4: 59599 01/14/2018 ([id number]) 85336 EST. P ATIENT, LEVEL IV Diagnosis: Type 2 diabetes mellitus with hyperglycemia[ICD10: E11.65] Diagnosis: Chronic obstructive pulmonary disease, unspecified[ICD10: J44.9] Diagnosis: Other fatigue[ICD10: R53.83] Karmen Ash MD, [facility] CPT- 4: 66787 01/13/2018 ([id number]) 30363 EST. P ATIENT, LEVEL IV Diagnosis: Type 2 diabetes mellitus with hyperglycemia[ICD10: E11.65] Diagnosis: Vitamin D deficiency, unspecified[ICD10: E55.9] Diagnosis: Essential (primary) hypertension[ICD10: I10] Diagnosis: Abdominal distension (gaseous)[ICD10: R14.0] Diagnosis: Drug induced constipation[ICD10: K59.03] Karmen Ash MD, [facility] CPT-4: 56058 11/19/2017 78121 EST. PATIENT, LEVEL IV Diagnosis: Low back pain[ICD10: M54.5] Diagnosis: Chronic obstructive pulmonary disease, unspecified[ICD10: J44.9] Brunilda Ash MD, [facility] CPT-4: 49009 10/02/2017 ([id number]) 34065 EST. P ATIENT, LEVEL IV Diagnosis: Essential (primary) hypertension[ICD10: I10] Diagnosis: Type 2 diabetes mellitus with hyperglycemia[ICD10: E11.65] Diagnosis: Vitamin D deficiency, unspecified[ICD10: E55.9] Diagnosis: Mixed hyperlipidemia[ICD10: E78.2] Karmen Ash MD, [facility] CPT-4: 66422 07/23/2017 ([id number]) 02963 EST. P ATIENT, LEVEL IV Diagnosis: Essential (primary) hypertension[ICD10: I10] Diagnosis: Type 2 diabetes mellitus with hyperglycemia[ICD10: E11.65] Diagnosis: Chronic obstructive pulmonary disease, unspecified[ICD10: J44.9] Diagnosis: Nicotine dependence, unspecified, uncomplicated[ICD10: F17.200] Diagnosis: Encounter for immunization[ICD10: Z23] Karmen Ash MD, [facility] CPT-4: 56556 04/25/2017 ([id number]) 42475 EST. P ATIENT, LEVEL IV Diagnosis: Type 2 diabetes mellitus with hyperglycemia[ICD10: E11.65] Diagnosis: Essential (primary) hypertension[ICD10: I10] Diagnosis: Anemia, unspecified[ICD10: D64.9] Karmen Ash MD, [facility] CPT- 4: 79457 02/19/2017 ([id number]) 90970 EST. P ATIENT, LEVEL IV Diagnosis: Slow transit constipation[ICD10: K59.01] Diagnosis: Gastro-esophageal reflux disease without esophagitis[ICD10: K21.9] Diagnosis: Essential (primary) hypertension[ICD10: I10] Karmen Ash MD, [facility] CPT-4: 23373 01/21/2017 ([id number]) 73673 EST. P ATIENT, LEVEL IV Diagnosis: Type 2 diabetes mellitus with hyperglycemia[ICD10: E11.65] Diagnosis: Vitamin D deficiency, unspecified[ICD10: E55.9] Diagnosis: Essential (primary) hypertension[ICD10: I10] Diagnosis: Chronic obstructive pulmonary disease, unspecified[ICD10: J44.9] Karmen Ash MD, [facility] CPT-4: 47897 12/20/2016 ([id number]) 45917 EST. P ATIENT, LEVEL IV Diagnosis: Type 2 diabetes mellitus with hyperglycemia[ICD10: E11.65] Diagnosis: Essential (primary) hypertension[ICD10: I10] Diagnosis: Mixed hyperlipidemia[ICD10: E78.2] Diagnosis: Vitamin D deficiency, unspecified[ICD10: E55.9] Karmen Ash MD, [facility] CPT-4: 59246 08/23/2016 ([id number]) 37355 EST. P ATIENT, LEVEL IV Diagnosis: Type 2 diabetes mellitus with hyperglycemia[ICD10: E11.65] Diagnosis: Essential (primary) hypertension[ICD10: I10] Diagnosis: Chronic obstructive pulmonary disease, unspecified[ICD10: J44.9] Karmen Ash MD, [facility] CPT-4: 38735 05/22/2016 ([id number]) 73648 EST. P ATIENT, LEVEL III Diagnosis: Dysuria[ICD10: R30.0] Diagnosis: Essential (primary) hypertension[ICD10: I10] Karmen Ash MD, [facility] CPT-4: 64120 02/24/2016 ([id number]) 71583 EST. P ATIENT, LEVEL IV Diagnosis: Gastro-esophageal reflux disease without esophagitis[ICD10: K21.9] Diagnosis: Slow transit constipation[ICD10: K59.01] Diagnosis: Type 2 diabetes mellitus with hyperglycemia[ICD10: E11.65] Karmen Ash MD, [facility] CPT-4: 29644 01/27/2016 ([id number]) 16833 EST. P ATIENT, LEVEL IV Diagnosis: Essential (primary) hypertension[ICD10: I10] Diagnosis: Type 2 diabetes mellitus with hyperglycemia[ICD10: E11.65] Diagnosis: Vitamin D deficiency, unspecified[ICD10: E55.9] Diagnosis: Chronic obstructive pulmonary disease, unspecified[ICD10: J44.9] Diagnosis: Mixed hyperlipidemia[ICD10: E78.2] Diagnosis: Tobacco use[ICD10: Z72.0] Karmen Ash MD, [facility] CPT- 4: 65406 11/25/2015 ([id number]) 62555 EST. P ATIENT, LEVEL IV Diagnosis: Type 2 diabetes mellitus with hyperglycemia[ICD10: E11.65] Diagnosis: Essential (primary) hypertension[ICD10: I10] Diagnosis: Vitamin D deficiency, unspecified[ICD10: E55.9] Karmen Ash MD, [facility] CPT-4: 84807 07/28/2015 ([id number]) 35113 EST. P ATIENT, LEVEL III Diagnosis: Type 2 diabetes mellitus with hyperglycemia[ICD10: E11.65] Diagnosis: Essential (primary) hypertension[ICD10: I10] Violeta Ash MD, [facility] CPT-4: 76023 05/26/2015 ([id number]) 30798 EST. P ATIENT, LEVEL III Diagnosis: DIABETES TYPE II[ICD9: 250.00] Diagnosis: COPD (chronic obstructive pulmonary disease)[ICD9: 496] Diagnosis: ESSENTIAL HYPERTENSION[ICD9: 401.9] Diagnosis: Cough[ICD9: 786.2] Violeta Ash MD, [facility] CPT-4: 48921 05/06/2015 ([id number]) 23869 EST. P ATIENT, LEVEL III Diagnosis: COPD (chronic obstructive pulmonary disease)[ICD9: 496] Diagnosis: DIABETES TYPE II[ICD9: 250.00] Diagnosis: Muscle ache[ICD9: 729.1] Karmen Ash MD, [facility] CPT- 4: 23434 04/25/2015 ([id number]) 90272 EST. P ATIENT, LEVEL III Diagnosis: ACTINIC KERATOSIS[ICD9: 702.0] Diagnosis: COPD (chronic obstructive pulmonary disease)[ICD9: 496] Diagnosis: DIABETES TYPE II[ICD9: 250.00] Diagnosis: ACUTE URI[ICD9: 465.9] Violeta Ash MD, [facility] CPT-4: 22753 04/12/2015 ([id number]) 64669 EST. P ATIENT, LEVEL III Diagnosis: DIABETES TYPE II[ICD9: 250.00] Violeta Ash MD, [facility] CPT-4: 40348 03/24/2015 ([id number]) 51738 EST. P ATIENT, LEVEL IV Diagnosis: DIABETES TYPE II[ICD9: 250.00] Diagnosis: Hypoglycemia[ICD9: 251.2] Diagnosis: Skin texture changes[ICD9: 782.8] Violeta Ash MD, [facility] CPT-4: 55622 03/07/2015 ([id number]) 07701 EST. P ATIENT, LEVEL IV Diagnosis: COPD (chronic obstructive pulmonary disease)[ICD9: 496] Diagnosis: Fatigue[ICD9: 780.79] Diagnosis: Insulin dependent diabetes mellitus[ICD9: 250.00] Diagnosis: Unsteady gait[ICD9: 781.2] Maame Ash MD, [facility] CPT-4: 11955 02/17/2015 ([id number]) 16725 EST. P ATIENT, LEVEL IV Diagnosis: BPPV (benign paroxysmal positional vertigo)[ICD9: 386.11] Diagnosis: Impacted cerumen[ICD9: 380.4] Diagnosis: ESSENTIAL HYPERTENSION[ICD9: 401.9] Diagnosis: Insulin dependent diabetes mellitus[ICD9: 250.00] Karmen Ash MD, [facility] CPT-4: 46277 12/23/2014 ([id number]) [facility] 4 Diagnosis: Insulin dependent diabetes mellitus[ICD9: 250.00] Diagnosis: BPPV (benign paroxysmal positional vertigo)[ICD9: 386.11] Diagnosis: COPD (chronic obstructive pulmonary disease)[ICD9: 496] Diagnosis: Tobacco abuse[ICD9: 305.1] Diagnosis: Osteoarthritis[ICD9: 715.90] [facility] CPT- 4: 39612 12/09/2014 Plan of Care Planned Activity Notes [...] Completed 11/04/2018 [facility]ment[facility] [phone] [phone] (30 min) Complex 10/21/2018 Visit Plan: [...] walker 10/17/2018 Appointment: [facility] [phone] [phone] (30 min) Complex 10/17/2018 Patient Education: [...] 09/02/2018 Appointment: [facility]inal [facility]el[phone] (15 min) Moderate 09/02/2018 Patient Education: [...] care surrogate. 06/30/2018 Appointment: Karmen Espinal WPtel: [phone] [facility] - Annual Wellness Visit 06/30/2018 Patient [...] in pain. 06/06/2018 Appointment: Karmen Espinal WPtel: [phone] (15 min) Moderate 06/06/2018 Patient Education: [...] months 04/04/2018 Appointment: Karmen Espinal WPtel: [phone] [phone] [place] (15 min) Moderate 04/04/2018 Patient Education: Patient Medication Summary Completed 04/04/2018 Care Plan: Cbc With Differential Pending 04/04/2018 Care Plan: Testosterone repeat in 2 months Pending 04/04/2018 Appointment: [facility] [phone] [phone] [place] (15 min) Moderate 03/25/2018 Visit Plan: Low back pain -history of kidney stone-UA negative today -increase fluids and call if pain does not resolve or if any worse. 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 this [...] 01/30/2018 Appointment: Karmen Espinal WPtel: [facility] [place] [address] (15 min) Moderate 01/30/2018 Patient Education: Patient Medication Summary Completed 01/30/2018 Appointment: Karmen Espinal WPtel: [phone] (15 min) Moderate 01/28/2018 Appointment: [place] 01/17/2018 Patient Education: Patient Medication Summary Completed 01/17/2018 Visit Plan: Cellulitis - start oral antibiotics as directed, return to clinic as previously directed, call for acute change in symptoms, worsening redness, warmth, discharge. 01/14/2018 Appointment: Karmen Espinal WPtel: [phone] (10 min) Simple 01/14/2018 Patient Education: [...] starting to become less controlled. 01/13/2018 Appointment: Karemn Espinal WPtel: [phone] [place] [phone] (15 min) Moderate 01/13/2018 Patient Education: Patient Medication Summary Completed 01/13/2018 Referral: Hugo Villatoro HPtel:[phone] Patient's informed. Referral info ned monroy. [...] change in blood pressure readings at home. Omgsapio-rwgose-tcbfw to see Dr Villatoro Constipation-start linzess daily 11/19/2017 Appointment: Karmen Espinal WPtel: [phone] (30 min) Complex 11/19/2017 Patient Education: Patient Medication Summary Completed 11/19/2017 Care Plan: Referral Order bloating, nausea SNOMED-CT : 671074236 Pending 11/19/2017 Visit Plan: Low back pain- [...] acute changes. 10/02/2017 Appointment: Brunilda Maravilla WPtel: [address] [place], [place] [phone] (15 min) Moderate 10/02/2017 Patient Education: Patient [...] controlled. 07/23/2017 Appointment: [facility] [phone] [phone] (30 min) Complex 07/23/2017 Patient Education: Patient [...] history 04/25/2017 Appointment: [facility] [phone] [phone] (30 min) Complex 04/25/2017 Patient Education: [...] readings are starting to become less controlled. Xigyzg-gizqjqo-mohle labs 02/19/2017 Appointment: Karmen Espinal WPtel: [phone] (30 min) Complex 02/19/2017 Patient Education: [...] 01/21/2017 Appointment: Karmen Espinal WPtel: [phone] (30 min) Complex 01/21/2017 Patient Education: Patient Medication Summary Completed 01/21/2017 Patient Education: Smoking and Tobacco Addiction Completed 01/21/2017 Patient Education: Hypertension Completed 01/21/2017 Care Plan: Referral Order SNOMED-CT : 841048346 Pending 01/21/2017 Visit Plan: Diabetes Mellitus - [...] monitor for acute changes. 12/20/2016 Appointment: Karmen Espnial WPtel: [phone] [phone] (30 min) Complex 12/20/2016 Patient Education: Patient Medication Summary Completed 12/20/2016 Patient Education: Smoking and Tobacco Addiction Completed 12/20/2016 Patient Education: Hypertension Completed 12/20/2016 Appointment: Karmen Espinal WPtel: [phone] [phone] (30 min) Complex 09/06/2016 [...] level 08/23/2016 Appointment: Karmen Espinal WPtel: [phone] [phone] (30 min) Complex 08/23/2016 Patient Education: [...] 05/22/2016 Appointment: Karmen Espinal WPtel: [phone] (30 min) Complex 05/22/2016 Patient Education: Patient Medication Summary Completed 05/22/2016 Patient Education: Smoking and Tobacco Addiction Completed 05/22/2016 Care Plan: Cbc With Differential Ordered 05/22/2016 Care Plan: %Hba1C LOIN C : 60061-9 Ordered 05/22/2016 Care Plan: Tsh Ordered 05/22/2016 [...] with update 02/24/2016 Appointment: Karmen Espinal WPtel: [phone] (30 min) Complex 02/24/2016 [...] this regimen. 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 Qcidkczl-cupryjts-UZYX SIMVASTATIN X 2 WEEKS AND CALL WITH [...] Care Plan: COMPLETE CBC AUTOMATED LOINC : 69175-8 Ordered 03/24/2015 Visit Plan: Diabetes Mellitus - [...] removal. 03/07/2015 Appointment: Violeta Ash WPtel: [phone] (15 min) Moderate 03/07/2015 Patient Education: Patient [...] hearing. The wax was removed by the [facility] ctitioner due to the wax being more [...] Care Plan: COMPLETE CBC AUTOMATED LOINC : 92593-5 Ordered 12/23/2014 Visit Plan: BPPV - Benign [...] appt 12/09/2014 Appointment: Karmen Espinal WPtel: [phone] [place] ([place]) New Patient 12/09/2014 Patient Education: Patient Medication Summary Completed 12/09/2014 Patient Education: .Amazing charts Parox ysmal positional vertigo Completed 12/09/2014 Patient Education: Smoking and Tobacco Addiction Completed 12/09/2014 Referral: Hugo Villatoro HPtel:[phone] [facility] [place] Referral Appointment Requested Referral: Luis [...] readings are starting to become less controlled. Cdeoti-dqiposp-krpfh labs . Cellulitis - start oral antibiotics [...] change in blood pressure readings at home. Enkswiad-foqwpy-grzwc to see Dr Villatoro Constipation-start linzess daily [...] POTENTIAL SIDE EFFECTS AND WORSENING OF SYMPTOMS. Flitxxdv-khpyruhc-FKPC SIMVASTATIN X 2 WEEKS AND CALL WITH [...]
--- OUTSIDE RECORDS SUMMARY | 2020-03-29 08:44 | XMS REPORT | CCD ---
Author Author Dick Espinal Organization Violeta Ash MD, [facility] [place] Address [address] [place] [address] Phone Care Team Providers Care Optometric Coordinator Name Role Phone PP Unavailable CCM Unavailable Summary Purpose Interface Exchange Insurance Providers Payer name Policy type / Coverage type Covered alliance party ID Effective Begin Date Effective End Date WPS Medicare Part B Medicare Part B [id number] Unknown Unknown [employer] Medicar e Part B [id number] Unknown Unkn own Family history Father Diagnosis Age At Onset Cancer Unknown Mother Diagnosis Age At Onset Cancer Unknown Social History Social History Element Codes Description Effective Dates Marital status Unknown M arried 12/09/2014 Employment Unknown Retir ed 12/09/[address]: 55626312 Currently smokes tobacco 12/09/2014 Number of years using tobacco Unknown > 50 12/09/2014 Number of cigarettes/day Unknown 30 (Pack and a half) 12/09/[address]: 127902981 Never drinks alcohol 12/09/2014 Allergies, Adverse Reactions, [...] ICD-9: 257.9 ICD-10: E29.9 Active 01/17/2018 Unknown Essential (primary) hypertension ICD-9: 401.9 ICD-10: I10 Active 08/22/2016 Unknown Low back pain ICD-9: 724.2 ICD-10: M54.5 Active 10/02/2017 Unknown Orthostatic hypotension ICD-9: 458.0 ICD-10: I95.1 Active 10/17/2018 Unknown Unsteadiness on feet ICD-9: 781.2 ICD-10: R26.81 Active 10/17/2018 Unknown Chronic obstructive pulmonary disease, unspecified ICD-9: [...] unspecified ICD-9: 257.9 ICD-10: E29.9 01/17/2018 Active Essential (primary) hypertension ICD-9: 401.9 ICD-10: I10 08/22/2016 Active Low back pain ICD-9: 724.2 ICD-10: M54.5 10/02/2017 Active Orthostatic hypotension ICD-9: 458.0 ICD-10: I95.1 10/17/2018 Active Unsteadiness on feet ICD-9: 781.2 ICD-10: R26.81 10/17/2018 Active Chronic obstructive pulmonary disease, unspecified ICD-9: [...] cypiona te 200 mg/mL intramuscular oil RxNorm: 9123761 Milliliter(s) IM 11/18/2018 11/18/2018 In active hydrocodone 5 mg-linh taminophen 325 mg tablet RxNorm: 093025 1 Tablet(s) PO Q6-8H as needed 11/13/2018 12/07/2018 Active testosterone cypiona te 200 mg/mL intramuscular oil RxNorm: 9749086 1/2 Milliliter(s) IM [id number] 11/04/2018 03/03/2019 Active testosterone cypiona te 200 mg/mL intramuscular oil RxNorm: 9942737 Milliliter(s) IM 11/04/2018 11/04/2018 In active nicotine 21 mg/24 hr daily transdermal patch RxNorm: 959183 1 TD daily 10/31/2018 10/30/2018 In active nicotine 21 mg/24 hr daily transdermal patch RxNorm: 560460 1 TD daily 10/31/2018 11/29/2018 In active meclizine 25 mg tablet RxNorm: 141048 1 Tablet(s) PO Q6 PRN TAKE ONE TABLET BY MOUTH EVERY 6 HOURS NEEDED 10/17/2018 01/14/2019 Active hydrocodone 5 mg-linh taminophen 325 mg tablet RxNorm: 107065 1 Tablet(s) PO Q6-8H as needed 10/17/2018 11/10/2018 Inactive metformin 500 mg tablet RxNorm: 885653 Tablet(s) TAKE 1 TABLET BY MOUTH DAILY 10/15/2018 10/09/2019 Ac tive lisinopril 10 mg tablet RxNorm: 800940 TAKE 1 TABLET BY MOUTH TWO TIMES DAILY 10/15/2018 10/09/2019 Ac tive - First Attempt Ref: [id number] testosterone cypiona te 200 mg/mL intramuscular oil RxNorm: 3844351 Milliliter(s) IM 10/14/2018 10/14/2018 In active Xanax 0.5 mg tablet RxNorm: 430898 1 Tablet(s) PO TID 10/03/2018 11/30/2018 Inactive testosterone cypiona te 200 mg/mL intramuscular oil RxNorm: 6184793 1/2 Milliliter(s) IM weekly 10/03/2018 11/03/2018 Inactive testosterone cypiona te 200 mg/mL intramuscular oil RxNorm: 2720557 Milliliter(s) IM 10/03/2018 10/03/2018 In active testosterone cypiona te 200 mg/mL intramuscular oil RxNorm: 0605056 Milliliter(s) IM 09/23/2018 09/23/2018 In active hydrocodone 5 mg-linh taminophen 325 mg tablet RxNorm: 857990 1 Tablet(s) PO Q6-8H as needed 09/22/2018 10/16/2018 Inactive testosterone cypiona te 200 mg/mL intramuscular oil RxNorm: 9240485 1/2 Milliliter(s) IM 09/02/2018 09/02/2018 Inactive testosterone enantha te 200 mg/mL intramuscular oil RxNorm: 477295 Milliliter(s) IM 08/21/2018 08/21/2018 In active hydrocodone 5 mg-linh taminophen 325 mg tablet RxNorm: 839442 1 Tablet(s) PO Q6-8H as needed 08/21/2018 09/14/2018 Inactive testosterone cypiona te 200 mg/mL intramuscular oil RxNorm: 2073586 Milliliter(s) IM 08/08/2018 08/08/2018 In active testosterone cypiona te 200 mg/mL intramuscular oil RxNorm: 4130193 1/2 Milliliter(s) IM 07/28/2018 07/28/2018 Inactive hydrocodone 5 mg-linh taminophen 325 mg tablet RxNorm: 913256 1 Tablet(s) PO Q6-8H as needed 07/21/2018 08/14/2018 Inactive testosterone cypiona te 200 mg/mL intramuscular oil RxNorm: 907489 Milliliter(s) IM 07/16/2018 07/16/2018 In active testosterone cypiona te 200 mg/mL intramuscular oil RxNorm: 662762 Milliliter(s) IM 07/02/2018 07/02/2018 In active Xanax 0.5 mg tablet RxNorm: 725484 1 Tablet(s) PO TID 06/27/2018 08/24/2018 Inactive testosterone cypiona te 200 mg/mL intramuscular oil RxNorm: 505088 Milliliter(s) IM 06/24/2018 06/24/2018 In active hydrocodone 5 mg-linh taminophen 325 mg tablet RxNorm: 475803 1 Tablet(s) PO Q6-8H as needed 06/23/2018 07/17/2018 Inactive testosterone cypiona te 200 mg/mL intramuscular oil RxNorm: 573311 Milliliter(s) IM 06/13/2018 06/13/2018 In active testosterone cypiona te 200 mg/mL intramuscular oil RxNorm: 467195 Milliliter(s) IM 06/05/2018 06/05/2018 In active testosterone cypiona te 200 mg/mL intramuscular oil RxNorm: 1374726 1/2 Milliliter(s) IM weekly 05/30/2018 09/26/2018 Inactive testosterone cypiona te 200 mg/mL intramuscular oil RxNorm: 504310 Milliliter(s) IM 05/30/2018 05/30/2018 In active testosterone cypiona te 200 mg/mL intramuscular oil RxNorm: 811684 Milliliter(s) IM 05/22/2018 05/22/2018 In active hydrocodone 5 mg-linh taminophen 325 mg tablet RxNorm: 386453 1 Tablet(s) PO Q6-8H as needed 05/20/2018 06/13/2018 Inactive testosterone cypiona te 200 mg/mL intramuscular oil RxNorm: 112148 1/2 Milliliter(s) IM 05/12/2018 05/12/2018 Inactive testosterone cypiona te 200 mg/mL intramuscular oil RxNorm: 397871 Milliliter(s) IM 05/02/2018 05/02/2018 In active testosterone cypiona te 200 mg/mL intramuscular oil RxNorm: 353067 1/2 Milliliter(s) IM weekly 04/24/2018 05/29/2018 Inactive testosterone cypiona te 200 mg/mL intramuscular oil RxNorm: 386587 0.5 Milliliter(s) IM 04/24/2018 04/24/2018 Inactive hydrocodone 5 mg-linh taminophen 325 mg tablet RxNorm: 485420 1 Tablet(s) PO Q6-8H as needed 04/22/2018 05/16/2018 Inactive testosterone cypiona te 200 mg/mL intramuscular oil RxNorm: 382358 1/2 Milliliter(s) IM 04/17/2018 04/17/2018 Inactive testosterone cypiona te 200 mg/mL intramuscular oil RxNorm: 506780 1/2 Milliliter(s) IM weekly 04/16/2018 04/23/2018 Inactive Jardiance 10 mg tablet RxNorm: 1528654 1 Tablet(s) PO daily 04/04/2018 12/29/2018 Active Protonix 40 mg table t,delayed release RxNorm: 239892 1 Tablet(s) PO daily TAKE 1 TABLET BY MOUTH DAILY 04/04/2018 03/29/2019 Active - Ref: [id number] testosterone cypiona te 200 mg/mL intramuscular oil RxNorm: 865220 1 Milliliter(s) IM monthly 04/04/2018 04/15/2018 Inactive hydrocodone 5 mg-linh taminophen 325 mg tablet RxNorm: 230650 1 Tablet(s) PO Q6-8H as needed 03/19/2018 04/12/2018 Inactive Flomax 0.4 mg capsule RxNorm: 501350 1 Capsule(s) PO daily 03/10/2018 03/04/2019 Active Urecholine 25 mg tablet RxNorm: 299350 1 Tablet(s) PO BID 03/10/2018 07/07/2018 Inactive ketorolac 60 mg/2 mL intramuscular solution RxNorm: 2577974 Milliliter(s) IM 03/07/2018 03/07/2018 In active metformin 500 mg tablet RxNorm: 118881 Tablet(s) TAKE 1 TABLET BY MOUTH DAILY 02/20/2018 02/13/2019 Ac tive 1 q am and 1/2 tab q pm hydrocodone 5 mg-linh taminophen 325 mg tablet RxNorm: 661547 1 Tablet(s) PO Q6-8H as needed 02/20/2018 03/16/2018 Inactive Kenalog 40 mg/mL bartolome pension for injection RxNorm: 5310370 1.5 Milliliter(s) In j 01/30/2018 01/30/2018 In active hydrocodone 5 mg-linh taminophen 325 mg tablet RxNorm: 553716 1 Tablet(s) PO Q6-8H as needed 01/23/2018 02/16/2018 Inactive Urecholine 25 mg tablet RxNorm: 163200 1 Tablet(s) PO BID 01/22/2018 03/09/2018 Inactive Flomax 0.4 mg capsule RxNorm: 298494 1 Capsule(s) PO daily 01/22/2018 03/09/2018 Inactive Flomax 0.4 mg capsule RxNorm: 088138 1 Capsule(s) PO daily 01/22/2018 01/21/2018 Inactive Urecholine 25 mg tablet RxNorm: 644769 1 Tablet(s) PO BID 01/22/2018 01/21/2018 Inactive testosterone cypiona te 200 mg/mL intramuscular oil RxNorm: 710754 Milliliter(s) IM 01/17/2018 01/17/2018 In active testosterone cypiona te 200 mg/mL intramuscular oil RxNorm: 571502 1 Milliliter(s) IM monthly 01/17/2018 04/03/2018 Inactive doxycycline hyclate 100 mg tablet RxNorm: 410907 1 Tablet(s) PO BID 01/14/2018 01/23/2018 Inactive lisinopril 10 mg tablet RxNorm: 726655 TAKE 1 TABLET BY MOUTH TWO TIMES DAILY 01/14/2018 10/14/2018 In active - First Attempt Ref: [id number] Xanax 0.5 mg tablet RxNorm: 657280 1 Tablet(s) PO TID 01/08/2018 04/06/2018 Inactive nystatin 100,000 uni t/mL oral suspension RxNorm: 075158 4 Milliliter(s) PO QI D Swish and swallow 01/08/2018 01/07/2018 Inactive nystatin 100,000 uni t/mL oral suspension RxNorm: 635994 4 Milliliter(s) PO QI D Swish and swallow 01/08/2018 01/12/2018 Inactive simvastatin 40 mg ta blet RxNorm: 456295 TAKE 1 TABLET BY MOUT H DAILY AT BEDTIME 12/30/2017 12/24/2018 Ac tive - First Attempt Ref: [id number] metformin 500 mg tablet RxNorm: 663211 TAKE 1 TABLET BY MOUTH DAILY 12/30/2017 02/19/2018 Inactive - First Attempt Ref: [id number] hydrocodone 5 mg-linh taminophen 325 mg tablet RxNorm: 457517 1 Tablet(s) PO Q6-8H as needed 12/25/2017 01/18/2018 Inactive Protonix 40 mg table t,delayed release RxNorm: 113434 Tablet(s) TAKE 1 TABL ET BY MOUTH DAILY 11/20/2017 04/03/2018 Inactive - Ref: [id number] Linzess 72 mcg capsule RxNorm: 2204743 1 Capsule(s) PO daily 11/19/2017 No Stop Date Active hydrocodone 5 mg-linh taminophen 325 mg tablet RxNorm: 267904 1 Tablet(s) PO Q6-8H as needed 11/19/2017 12/13/2017 Inactive hydrocodone 5 mg-linh taminophen 325 mg tablet RxNorm: 919089 1 Tablet(s) PO Q6-8H as needed 10/28/2017 11/18/2017 Inactive Xanax 0.5 mg tablet RxNorm: 095396 1 Tablet(s) PO TID 10/25/2017 12/22/2017 Inactive Xanax 0.5 mg tablet RxNorm: 225009 TAKE ONE TABLET BY MOUTH THREE TIMES A D AY 10/24/2017 12/22/2017 In active hydrocodone 5 mg-linh taminophen 325 mg tablet RxNorm: 270693 1 Tablet(s) PO Q6-8H as needed 09/30/2017 10/24/2017 Inactive Protonix 40 mg table t,delayed release RxNorm: 160675 TAKE 1 TABLET BY MOUT H DAILY 09/16/2017 11/19/2017 In active - Ref: [id number] Touparadiseo SoloStar 300 unit/mL (1.5 mL) subcutaneous insulin pen RxNorm: 1227295 35 Unit(s) SQ QHS 08/30/2017 No Stop Date Active dosage increase hydrocodone 5 mg-linh taminophen 325 mg tablet RxNorm: 010999 1 Tablet(s) PO Q6-8H as needed 08/28/2017 09/29/2017 Inactive hydrocodone 5 mg-linh taminophen 325 mg tablet RxNorm: 651106 1 Tablet(s) PO Q6-8H as needed 07/23/2017 08/24/2017 Inactive lisinopril 10 mg tablet RxNorm: 531167 1 Tablet(s) PO BID Take 1 tablet by mout h daily 07/23/2017 01/13/2018 Inactive hydrocodone 5 mg-linh taminophen 325 mg tablet RxNorm: 802309 1 Tablet(s) PO Q6-8H as needed 06/27/2017 07/22/2017 Inactive Xanax 0.5 mg tablet RxNorm: 923430 1 Tablet(s) PO TID 06/18/2017 10/25/2017 Inactive hydrocodone 5 mg-linh taminophen 325 mg tablet RxNorm: 714251 1 Tablet(s) PO Q6-8H as needed 05/27/2017 06/26/2017 Inactive Levaquin 500 mg tablet RxNorm: 907680 1 Tablet(s) PO daily 05/24/2017 05/23/2017 Inactive Levaquin 500 mg tablet RxNorm: 294223 1 Tablet(s) PO daily 05/24/2017 05/30/2017 Inactive Protonix 40 mg table t,delayed release RxNorm: 041829 Take 1 tablet by mout h daily 04/29/2017 09/15/2017 In active - Ref: [id number] hydrocodone 5 mg-linh taminophen 325 mg tablet RxNorm: 957748 1 Tablet(s) PO Q6-8H as needed 04/25/2017 05/26/2017 Inactive metformin 500 mg tablet RxNorm: 815478 Take 1 tablet by mouth daily 04/08/2017 12/29/2017 Inactive - First Attempt Ref: [id number] hydrocodone 5 mg-linh taminophen 325 mg tablet RxNorm: 993859 1 Tablet(s) PO Q6-8H as needed 03/27/2017 04/24/2017 Inactive hydrocodone 5 mg-linh taminophen 325 mg tablet RxNorm: 713315 1 Tablet(s) PO Q6-8H as needed 02/25/2017 03/26/2017 Inactive Protonix 40 mg table t,delayed release RxNorm: 032635 Tablet(s) Take 1 tabl et by mouth BID 02/25/2017 04/28/2017 Inactive Protonix 40 mg table t,delayed release RxNorm: 474517 Tablet(s) Take 1 tabl et by mouth BID 02/19/2017 02/18/2017 Inactive Protonix 40 mg table t,delayed release RxNorm: 496789 Tablet(s) Take 1 tabl et by mouth BID 02/19/2017 02/24/2017 Inactive lisinopril 10 mg tablet RxNorm: 818366 Take 1 tablet by mouth daily 01/29/2017 07/22/2017 Inactive - First Attempt Ref: [id number] hydrocodone 5 mg-linh taminophen 325 mg tablet RxNorm: 416645 1 Tablet(s) PO Q6-8H as needed 01/25/2017 02/24/2017 Inactive simvastatin 40 mg ta blet RxNorm: 184468 Tablet(s) Take 1 tabl et by mouth daily at bedtime 01/03/2017 12/28/2017 Inactive lisinopril 10 mg tablet RxNorm: 946715 Tablet(s) Take 1 tablet by mouth daily 01/03/2017 01/28/2017 In active Protonix 40 mg table t,delayed release RxNorm: 570249 Tablet(s) Take 1 tabl et by mouth daily 12/28/2016 02/18/2017 Inactive hydrocodone 5 mg-linh taminophen 325 mg tablet RxNorm: 106396 1 Tablet(s) PO Q6-8H as needed 12/26/2016 01/24/2017 Inactive Xanax 0.5 mg tablet RxNorm: 582325 1 Tablet(s) PO TID 12/12/2016 03/11/2017 Inactive simvastatin 40 mg ta blet RxNorm: 261429 Tablet(s) Take 1 tabl et by mouth daily at bedtime 11/30/2016 01/02/2017 Inactive simvastatin 40 mg ta blet RxNorm: 903652 Take 1 tablet by mout h daily at bedtime 11/29/2016 11/29/2016 In active - First Attempt Ref: [id number] Protonix 40 mg table t,delayed release RxNorm: 042536 Take 1 tablet by mout h daily 11/27/2016 12/27/2016 In active - First Attempt Ref: [id number] hydrocodone 5 mg-linh taminophen 325 mg tablet RxNorm: 964860 1 Tablet(s) PO Q6-8H as needed 11/26/2016 12/25/2016 Inactive hydrocodone 5 mg-linh taminophen 325 mg tablet RxNorm: 974196 1 Tablet(s) PO Q8 as needed 10/24/2016 11/25/2016 Inactive Xanax 0.5 mg tablet RxNorm: 343751 1 Tablet(s) PO TID 10/09/2016 12/25/2016 Inactive hydrocodone 5 mg-linh taminophen 325 mg tablet RxNorm: 946454 1 Tablet(s) PO Q8 as needed 09/27/2016 10/23/2016 Inactive lisinopril 10 mg tablet RxNorm: 940340 Take 1 tablet by mouth daily 09/25/2016 01/02/2017 Inactive - First Attempt Ref: [id number] Vitamin D2 50,000 un it capsule RxNorm: 654485 1 Capsule(s) PO QW 09/06/2016 No Stop Date Active hydrocodone 5 mg-linh taminophen 325 mg tablet RxNorm: 320576 1 Tablet(s) PO Q8 as needed 08/28/2016 09/26/2016 Inactive Toujeo SoloStar 300 unit/mL (1.5 mL) subcutaneous insulin pen RxNorm: 5003361 25 Unit(s) SQ QHS 08/23/2016 08/29/2017 Inactive dosage increase hydrocodone 5 mg-linh taminophen 325 mg tablet RxNorm: 575250 1 Tablet(s) PO Q8 as needed 07/26/2016 08/27/2016 Inactive Protonix 40 mg table t,delayed release RxNorm: 112839 Take 1 tablet by mout h daily 07/24/2016 11/26/2016 In active - First Attempt Ref: [id number] hydrocodone 5 mg-linh taminophen 325 mg tablet RxNorm: 703198 1 Tablet(s) PO Q8 as needed 06/19/2016 07/21/2016 Inactive Toujeo SoloStar 300 unit/mL (1.5 mL) subcutaneous insulin pen RxNorm: 6183612 32 Unit(s) SQ QHS 05/30/2016 08/22/2016 Inactive dosage increase hydrocodone 5 mg-linh taminophen 325 mg tablet RxNorm: 827159 1 Tablet(s) PO Q8 as needed 05/22/2016 06/18/2016 Inactive hydrocodone 5 mg-linh taminophen 325 mg tablet RxNorm: 445137 1 Tablet(s) PO Q8 as needed 04/18/2016 05/17/2016 Inactive Protonix 40 mg table t,delayed release RxNorm: 579043 Take 1 tablet by mout h daily 04/05/2016 07/03/2016 In active - Ref: [id number] metformin 500 mg tablet RxNorm: 214645 Take 1 tablet by mouth daily 04/04/2016 07/02/2016 Inactive - Ref: [id number] Xanax 0.5 mg tablet RxNorm: 693371 1 Tablet(s) PO TID 03/30/2016 09/25/2016 Inactive Xanax 0.5 mg tablet RxNorm: 042340 1 Tablet(s) PO TID 03/23/2016 12/25/2016 Inactive hydrocodone 5 mg-linh taminophen 325 mg tablet RxNorm: 736469 1 Tablet(s) PO Q8 as needed 03/06/2016 04/04/2016 Inactive Cipro 500 mg tablet RxNorm: 499399 1 Tablet(s) PO BID 02/24/2016 03/04/2016 Inactive Miralax 17 gram oral powder packet RxNorm: 483830 1 packet PO every oth er day 01/27/2016 No Stop Date Active hydrocodone 5 mg-linh taminophen 325 mg tablet RxNorm: 416494 1 Tablet(s) PO Q8 as needed 01/27/2016 02/25/2016 Inactive lisinopril 10 mg tablet RxNorm: 370696 1 Tablet(s) PO daily 01/12/2016 09/24/2016 Inactive simvastatin 40 mg ta blet RxNorm: 182984 1 Tablet(s) PO QHS 01/12/2016 11/28/2016 Inactive simvastatin 40 mg ta blet RxNorm: 712427 1 Tablet(s) PO QHS 01/11/2016 01/11/2016 Inactive lisinopril 10 mg tablet RxNorm: 616019 1 Tablet(s) PO daily 01/06/2016 01/11/2016 Inactive simvastatin 40 mg ta blet RxNorm: 347260 1 Tablet(s) PO daily 12/28/2015 01/10/2016 Inactive hydrocodone 5 mg-linh taminophen 325 mg tablet RxNorm: 364423 1 Tablet(s) PO Q8 as needed 12/27/2015 01/26/2016 Inactive Xanax 0.5 mg tablet RxNorm: 205843 1 Tablet(s) PO TID 11/30/2015 03/29/2016 Inactive Toujeo SoloStar 300 unit/mL (1.5 mL) subcutaneous insulin pen RxNorm: 4638871 30 Unit(s) SQ QHS 11/25/2015 05/29/2016 Inactive dosage increase meclizine 25 mg tablet RxNorm: 778171 1 Tablet(s) PO Q6 PRN TAKE ONE TABLET BY MOUTH EVERY 6 HOURS NEEDED 11/25/2015 02/22/2016 Inactive omeprazole 20 mg cap jacquelyn,delayed release RxNorm: 140015 1 Capsule(s) PO daily 10/06/2015 01/26/2016 In active Touanuj SoloStar 300 unit/mL (1.5 mL) subcutaneous insulin pen RxNorm: 0421505 35 Unit(s) SQ QHS 08/02/2015 11/24/2015 Inactive dosage increase Vitamin D2 50,000 un it capsule RxNorm: 891841 1 Capsule(s) PO QW 08/02/2015 09/05/2016 Inactive hydrocodone 5 mg-linh taminophen 325 mg tablet RxNorm: 828389 1 Tablet(s) PO Q8 as needed 07/11/2015 12/26/2015 Inactive Xanax 0.5 mg tablet RxNorm: 946313 1 Tablet(s) PO TID 06/30/2015 06/29/2015 Inactive Xanax 0.5 mg tablet RxNorm: 337552 1 Tablet(s) PO TID 06/30/2015 12/25/2015 Inactive hydrocodone 5 mg-linh taminophen 325 mg tablet RxNorm: 308569 1 Tablet(s) PO Q8 as needed 05/06/2015 07/10/2015 Inactive Symbicort 160 mcg-4. 5 mcg/actuation HFA aerosol inhaler RxNorm: 0798772 INH 04/25/2015 No Stop Date Active Levemir FlexTouch 10 0 unit/mL (3 mL) subcutaneous insulin pen RxNorm: 197766 30 Unit(s) SQ QHS 04/25/2015 11/24/2015 Inactive prednisone 20 mg tablet RxNorm: 539755 1 Tablet(s) PO BID 04/25/2015 04/29/2015 Inactive metformin 500 mg tablet RxNorm: 460458 1 Tablet(s) PO daily 04/25/2015 04/03/2016 Inactive amoxicillin 500 mg c apsule RxNorm: 037277 1 Capsule(s) PO TID 04/14/2015 04/13/2015 Inactive amoxicillin 500 mg c apsule RxNorm: 324338 1 Capsule(s) PO TID a nd recommend probiotic tid (otc) 04/14/2015 04/20/2015 Inactive Kenalog 40 mg/mL bartolome pension for injection RxNorm: 2573201 Milliliter(s) Inj 04/12/2015 04/12/2015 In active hydrocodone 5 mg-linh taminophen 325 mg tablet RxNorm: 932907 1 Tablet(s) PO Q8 as needed 03/30/2015 05/05/2015 Inactive Lantus 100 unit/mL s ubcutaneous solution RxNorm: 245675 25 Unit(s) SQ QPM 03/24/2015 04/25/2015 In active meclizine 25 mg tablet RxNorm: 281094 Tablet(s) TAKE ONE TABLET BY MOUTH EVERY 6 HOURS NEEDED 03/08/2015 04/06/2015 Inactive meclizine 25 mg tablet RxNorm: 636813 TAKE ONE TABLET BY MOUTH EVERY 6 HOURS A S NEEDED 02/25/2015 03/03/2015 Inactive Lantus 100 unit/mL s ubcutaneous solution RxNorm: 911039 20 Unit(s) SQ QPM 02/23/2015 03/23/2015 In active Lantus 100 unit/mL s ubcutaneous solution RxNorm: 295379 25 Unit(s) SQ QPM 02/23/2015 02/22/2015 In active hydrocodone 5 mg-linh taminophen 325 mg tablet RxNorm: 969415 1 Tablet(s) PO Q8 as needed 02/17/2015 03/29/2015 Inactive Xanax 0.5 mg tablet RxNorm: 982301 1 Tablet(s) PO TID 02/03/2015 06/29/2015 Inactive Lantus 100 unit/mL s ubcutaneous solution RxNorm: 817993 20 Unit(s) SQ QPM 12/29/2014 02/22/2015 In active Phenergan 12.5 mg re ctal suppository RxNorm: 423170 1 Suppository RTL Q6 PRN 12/23/2014 No Stop Date Active nausea Kenalog 40 mg/mL bartolome pension for injection RxNorm: 0808680 Milliliter(s) Inj 12/23/2014 12/23/2014 In active prednisone 20 mg tablet RxNorm: 001802 2 Tablet(s) PO daily 12/13/2014 12/17/2014 Inactive prednisone 20 mg tablet RxNorm: 569732 2 Tablet(s) PO daily 12/13/2014 12/12/2014 Inactive meclizine 25 mg tablet RxNorm: 076744 1 Tablet(s) PO Q6 PRN 12/09/2014 02/24/2015 Inactive hydrocodone 5 mg-linh taminophen 325 mg tablet RxNorm: 067978 1 Tablet(s) PO Q8 as needed 12/09/2014 02/16/2015 Inactive Vitamin B-12 1,000 m cg/mL oral drops RxNorm: 9581028 1 Milliliter(s) PO d aily No Start Date Active Alphagan P 0.1 % eye drops RxNorm: 767490 1 Drop(s) OPH BID No Start Date Active aspirin 325 mg table t,delayed release RxNorm: 900043 1 Tablet(s) PO daily No Start Date Active Tricor 145 mg tablet RxNorm: 237357 1 Tablet(s) PO daily No Start Date Active vitamin [id number] B1 oral liquid RxNorm: 1,000 Microgram(s) PO daily No Start Date Active atenolol 50 mg tablet RxNorm: 566825 1 Tablet(s) PO daily No Start Date Active Protonix 40 mg table t,delayed release RxNorm: 244844 1 Tablet(s) PO daily No Start Date 04/04/2016 Inactive glipizide 10 mg tablet RxNorm: 184385 1 Tablet(s) PO BID No Start Date 03/22/2015 Inactive Lantus 100 unit/mL s ubcutaneous solution RxNorm: 927720 15 Unit(s) SQ QPM No Start Date 12/28/2014 Inactive lisinopril 10 mg tablet RxNorm: 504331 1 Tablet(s) PO daily No Start Date 01/05/2016 Inactive Vitamin D2 50,000 un it capsule RxNorm: 870168 1 Capsule(s) PO QW No Start Date 08/01/2015 Inactive Toujeo SoloStar 300 unit/mL (1.5 mL) subcutaneous insulin pen RxNorm: 9047597 30 Unit(s) SQ QHS No Start Date 08/01/2015 Inactive simvastatin 40 mg ta blet RxNorm: 053709 1 Tablet(s) PO daily No Start Date 12/27/2015 Inactive testosterone cypiona te 200 mg/mL intramuscular oil RxNorm: 878492 1 Milliliter(s) IM monthly No Start Date 01/16/2018 Inactive hydrocodone 5 mg-linh taminophen 325 mg tablet RxNorm: 675189 1 Tablet(s) PO Q8 as needed No Start Date 12/08/2014 Inactive metformin 500 mg tablet RxNorm: 022634 1 Tablet(s) PO daily No Start Date 04/24/2015 Inactive omeprazole 20 mg cap jacquelyn,delayed release RxNorm: 791384 1 Capsule(s) PO daily No Start Date 10/05/2015 Inactive Flomax 0.4 mg capsule RxNorm: 191937 1 Capsule(s) PO daily No Start Date 03/23/2015 Inactive Medication Administered Medication Codes Instruc tions Start Date Status testosterone cypionate 200 mg/mL intramuscular oil RxNorm: 6467008 Milliliter 11/18/2018 No longer Active testosterone cypionate 200 mg/mL intramuscular oil RxNorm: 1666506 Milliliter 11/04/2018 No longer Active testosterone cypionate 200 mg/mL intramuscular oil RxNorm: 0714173 Milliliter 10/14/2018 No longer Active testosterone cypionate 200 mg/mL intramuscular oil RxNorm: 5315996 Milliliter 10/03/2018 No longer Active testosterone cypionate 200 mg/mL intramuscular oil RxNorm: 3571875 Milliliter 09/23/2018 No longer Active testosterone cypionate 200 mg/mL intramuscular oil RxNorm: 3922866 1/2Milliliter 09/02/2018 No longer Active testosterone enanthate 200 mg/mL intramuscular oil RxNorm: 882785 Milliliter 08/21/2018 No longer Active testosterone cypionate 200 mg/mL intramuscular oil RxNorm: 8587490 Milliliter 08/08/2018 No longer Active testosterone cypionate 200 mg/mL intramuscular oil RxNorm: 4830217 /2Milliliter 07/28/2018 No longer Active testosterone cypionate 200 mg/mL intramuscular oil RxNorm: 936130 Milliliter 07/16/2018 No longer Active testosterone cypionate 200 mg/mL intramuscular oil RxNorm: 183525 Milliliter 07/02/2018 No longer Active testosterone cypionate 200 mg/mL intramuscular oil RxNorm: 268293 Milliliter 06/24/2018 No longer Active testosterone cypionate 200 mg/mL intramuscular oil RxNorm: 676524 Milliliter 06/13/2018 No longer Active testosterone cypionate 200 mg/mL intramuscular oil RxNorm: 049580 Milliliter 06/05/2018 No longer Active testosterone cypionate 200 mg/mL intramuscular oil RxNorm: 695535 Milliliter 05/30/2018 No longer Active testosterone cypionate 200 mg/mL intramuscular oil RxNorm: 802743 Milliliter 05/22/2018 No longer Active testosterone cypionate 200 mg/mL intramuscular oil RxNorm: 117908 1/2Milliliter 05/12/2018 No longer Active testosterone cypionate 200 mg/mL intramuscular oil RxNorm: 485659 Milliliter 05/02/2018 No longer Active testosterone cypionate 200 mg/mL intramuscular oil RxNorm: 131473 0.5Milliliter 04/24/2018 No longer Active testosterone cypionate 200 mg/mL intramuscular oil RxNorm: 970630 1/2Milliliter 04/17/2018 No longer Active ketorolac 60 mg/2 mL intramuscular solution RxNorm: 4611443 Milliliter 03/07/2018 No longer Active Kenalog 40 mg/mL suspension for injection RxNorm: 2238735 1.5Milliliter 01/30/2018 No longer Active testosterone cypionate 200 mg/mL intramuscular oil RxNorm: 126726 Milliliter 01/17/2018 No longer Active Kenalog 40 mg/mL suspension for injection RxNorm: 5179830 Milliliter 04/12/2015 No longer Active Kenalog 40 mg/mL suspension for injection RxNorm: 7473840 Milliliter 12/23/2014 No longer Active Immunizations Vaccine Codes Date Status Influenza CVX: 141 06/06 completed Influenza CVX: 141 04/25 completed Pneumococcal (Adult) CVX: 133 04/25/2017 completed Influenza CVX: 141 05/22 completed Assessments Condition Codes Effectiv e Dates Testicular dysfunction, unspecified ICD-10: E29.9 ICD-9: 257.9 11/18/2018 Unsteadiness on feet ICD-10: R26.81 ICD-9: 781.2 10/17/2018 Low back pain ICD-10: M54.5 ICD-9: 724.2 10/17/2018 Orthostatic hypotension ICD-10: I95. 1 ICD-9: 458.0 10/17/2018 Mixed hyperlipidemia ICD-10: E78.2 ICD-9: 272.2 09/02/2018 Essential (primary) hypertension ICD -10: I10 ICD-9: 401.9 09/02/2018 Chronic obstructive pulmonary disease, unspecified ICD-10: J44.9 ICD-9: 496 09/02/2018 Type 2 diabetes mellitus with hyperglycemia ICD-10: E11.65 ICD-9: 250.02 09/02/2018 Vitamin D deficiency, unspecified IC D-10: [...] Visit Reason For Visit Effective Dates Notes vertigo 10/17/2018 diabetes mellitus 09/02/2018 Annual Medicare [...] Observation Code Item Item Code Result Date A1C Frequency [id number] A1CF 30833-9 Last A1C performed at [facility] lab on: 201812/02/2018 Testosterone Ugx624 Testo 669.0 ng/dL 09/08/2018 %Hba1C Ucw120 % HbA1c 13970-5 7.4 % 09/08/2018 %Hba1C Pxq253 Gluc Ave 166 mg/dL 09/08/2018 Lipid Ord30 CHOL 114 mg/dL 09/08/2018 Lipid Ord30 HDL 28.0 mg/dl 09/08/2018 Lipid Ord30 TRIG 154 mg/dL 09/08/2018 Lipid Ord30 LDL 55 mg/dL 09/08/2018 Lipid Ord30 C/HDL 4.1 Ratio 09/08/2018 Comp Metabolic Pgq491 NA 137 mEq/L 09/08/2018 Comp Metabolic Zqo196 K 4.3 mEq/L 09/08/2018 Comp Metabolic Kud418 CL 100 mEq/L 09/08/2018 Comp Metabolic Asy305 CO2 27.0 mEq/L 09/08/2018 Comp Metabolic Qgp601 AN ION GAP 14 09/08/2018 Comp Metabolic Rie866 GL UCOSE 85 mg/dL 09/08/2018 Comp Metabolic Xer303 Cr eat 1.1 mg/dL 09/08/2018 Comp Metabolic Psf182 eG FR 70 ml/min/1.73m2 09/08 Comp Metabolic Bot257 BUN 11 mg/dL 09/08/2018 Comp Metabolic Qjt105 B/ C Ratio 10.3 Ratio 09/08/2018 Comp Metabolic Dpd184 CA LCIUM 9.2 mg/dL 09/08/2018 Comp Metabolic Yla126 AL K PHOS 65 U/L 09/08/2018 Comp Metabolic Pxl140 T(SGOT) 16 U/L 09/08/2018 Comp Metabolic Lna562 AL T(SGPT) 14 U/L 09/08/2018 Comp Metabolic Flu634 BI LI T 0.6 mg/dL 09/08/2018 Comp Metabolic Jky172 AL BUMIN 4.0 g/dL 09/08/2018 Comp Metabolic Kvx497 TP RO 6.6 g/dL 09/08/2018 Comp Metabolic Vpr421 GL OB 2.6 g/dL 09/08/2018 Comp Metabolic Qgx643 A/ G Ratio 1.6 Ratio 09/08/2018 Comp Metabolic Kab740 Os mo 272 mOsmo 09/08/2018 Vitamin D 25 Oh Iyp8395 VITAMIN D, 25 HYDROXY 37.17 ng/mL 09/08/2018 [...] 33.3 pg 09/08/2018 Cbc With Differential Ord2 [place]% 8.1 % 09/08/2018 Cbc With Differential Ord2 [...] 2.44 K/ul 09/08/2018 Cbc With Differential Ord2 [place] ABS# 0.6 K/ul 09/08/2018 Cbc With Differential Ord2 Eos ABS# 0.3 K/ul 09/08/2018 Cbc With Differential Ord2 Baso ABS# 0.0 K/ul 09/08/2018 Tsh Ord6 TSH (3rd IS) 2.72 uIU/mL 09/08/2018 Comp Metabolic Rqr783 NA 139 mEq/L 04/01/2018 Comp Metabolic Fpf820 K 4.2 mEq/L 04/01/2018 Comp Metabolic Zgr128 CL 102 mEq/L 04/01/2018 Comp Metabolic Xri990 CO2 29.0 mEq/L 04/01/2018 Comp Metabolic Bkt910 AN ION GAP 12 04/01/2018 Comp Metabolic Bak509 GL UCOSE 87 mg/dL 04/01/2018 Comp Metabolic Zbb655 Cr eat 1.1 mg/dL 04/01/2018 Comp Metabolic Eie974 eG FR 70 ml/min/1.73m2 04/01 Comp Metabolic Hpv271 BUN 21 mg/dL 04/01/2018 Comp Metabolic Qgj216 B/ C Ratio 19.4 Ratio 04/01/2018 Comp Metabolic Wfe984 CA LCIUM 9.1 mg/dL 04/01/2018 Comp Metabolic Afq640 AL K PHOS 60 U/L 04/01/2018 Comp Metabolic Rqv146 T(SGOT) 15 U/L 04/01/2018 Comp Metabolic Nsy135 AL T(SGPT) 18 U/L 04/01/2018 Comp Metabolic Gtz108 BI LI T 0.4 mg/dL 04/01/2018 Comp Metabolic Hpz126 AL BUMIN 4.0 g/dL 04/01/2018 Comp Metabolic Qsb740 TP RO 6.5 g/dL 04/01/2018 Comp Metabolic Vrz571 GL OB 2.5 g/dL 04/01/2018 Comp Metabolic Org656 A/ G Ratio 1.6 Ratio 04/01/2018 Comp Metabolic Zbb661 Os mo 280 mOsmo 04/01/2018 Lipid Ord30 [...] 34.3 pg 04/01/2018 Cbc With Differential Ord2 [place]% 6.0 % 04/01/2018 Cbc With Differential Ord2 [...] 3.25 K/ul 04/01/2018 Cbc With Differential Ord2 [place] ABS# 0.6 K/ul 04/01/2018 Cbc With Differential Ord2 Eos ABS# 0.4 K/ul 04/01/2018 Cbc With Differential Ord2 Baso ABS# 0.0 K/ul 04/01/2018 %Hba1C Nxh841 % HbA1c 57644-3 8.0 % 04/01/2018 %Hba1C Pae135 Gluc Ave 183 mg/dL 04/01/2018 Testosterone Msr308 Testo 111.3 ng/dL 04/01/2018 Testosterone Fhf161 Testo 135.4 ng/dL 01/14/2018 Cbc With Differential [...] 36.0 pg 01/14/2018 Cbc With Differential Ord2 [place]% 6.8 % 01/14/2018 Cbc With Differential Ord2 [...] 2.71 K/ul 01/14/2018 Cbc With Differential Ord2 [place] ABS# 0.8 K/ul 01/14/2018 Cbc With Differential Ord2 Eos ABS# 0.2 K/ul 01/14/2018 Cbc With Differential Ord2 Baso ABS# 0.0 K/ul 01/14/2018 Comp Metabolic Tij452 NA 134 mEq/L 11/20/2017 Comp Metabolic Sag329 K 4.4 mEq/L 11/20/2017 Comp Metabolic Wcc493 CL 99 mEq/L 11/20/2017 Comp Metabolic Kgc757 CO2 29.0 mEq/L 11/20/2017 Comp Metabolic Xog562 AN ION GAP 10 11/20/2017 Comp Metabolic Gds789 GL UCOSE 218 mg/dL 11/20/2017 Comp Metabolic Opm494 Cr eat 1.0 mg/dL 11/20/2017 Comp Metabolic Rwr413 eG FR 78 ml/min/1.73m2 11/20 Comp Metabolic Qcu257 BUN 13 mg/dL 11/20/2017 Comp Metabolic Nfw035 B/ C Ratio 13.3 Ratio 11/20/2017 Comp Metabolic Cqp971 CA LCIUM 9.0 mg/dL 11/20/2017 Comp Metabolic Jpe258 AL K PHOS 71 U/L 11/20/2017 Comp Metabolic Vzb891 T(SGOT) 18 U/L 11/20/2017 Comp Metabolic Muq239 AL T(SGPT) 17 U/L 11/20/2017 Comp Metabolic Yfn063 BI LI T 0.4 mg/dL 11/20/2017 Comp Metabolic Agq658 AL BUMIN 4.1 g/dL 11/20/2017 Comp Metabolic Hez280 TP RO 6.5 g/dL 11/20/2017 Comp Metabolic End251 GL OB 2.4 g/dL 11/20/2017 Comp Metabolic Pys219 A/ G Ratio 1.8 Ratio 11/20/2017 Comp Metabolic Hpa405 Os mo 275 mOsmo 11/20/2017 Cbc With [...] 35.2 pg 11/20/2017 Cbc With Differential Ord2 [place]% 7.2 % 11/20/2017 Cbc With Differential Ord2 [...] 3.34 K/ul 11/20/2017 Cbc With Differential Ord2 [place] ABS# 0.6 K/ul 11/20/2017 Cbc With Differential Ord2 Eos ABS# 0.3 K/ul 11/20/2017 Cbc With Differential Ord2 Baso ABS# 0.0 K/ul 11/20/2017 Vitamin D 25 Oh Beu4381 VITAMIN D, 25 HYDROXY 43.72 ng/mL 11/20/2017 %Hba1C Drl856 % HbA1c 97958-5 7.4 % 11/20/2017 %Hba1C Enx220 Gluc Ave 166 mg/dL 11/20/2017 %Hba1C Oeb619 % HbA1c 51755-8 7.2 % 08/20/2017 %Hba1C Unj511 Gluc Ave 160 mg/dL 08/20/2017 Lipid Ord30 [...] 34.7 pg 08/20/2017 Cbc With Differential Ord2 [place]% 7.6 % 08/20/2017 Cbc With Differential Ord2 [...] 2.42 K/ul 08/20/2017 Cbc With Differential Ord2 [place] ABS# 0.6 K/ul 08/20/2017 Cbc With Differential Ord2 Eos ABS# 0.3 K/ul 08/20/2017 Cbc With Differential Ord2 Baso ABS# 0.0 K/ul 08/20/2017 Tsh Ord6 hTSH II 2.27 uIU/mL 08/20/2017 Comp Metabolic Ewa935 NA 138 mEq/L 08/20/2017 Comp Metabolic Tzq881 K 4.3 mEq/L 08/20/2017 Comp Metabolic Yus561 CL 102 mEq/L 08/20/2017 Comp Metabolic Yov326 CO2 29.0 mEq/L 08/20/2017 Comp Metabolic Yus925 AN ION GAP 11 08/20/2017 Comp Metabolic Hzq642 GL UCOSE 89 mg/dL 08/20/2017 Comp Metabolic Qsp718 Cr eat 1.0 mg/dL 08/20/2017 Comp Metabolic Imc588 eG FR 80 ml/min/1.73m2 08/20 Comp Metabolic Buw692 BUN 13 mg/dL 08/20/2017 Comp Metabolic Fes843 B/ C Ratio 13.5 Ratio 08/20/2017 Comp Metabolic Goc172 CA LCIUM 9.2 mg/dL 08/20/2017 Comp Metabolic Aej134 AL K PHOS 69 U/L 08/20/2017 Comp Metabolic Wpq377 T(SGOT) 18 U/L 08/20/2017 Comp Metabolic Weg997 AL T(SGPT) 19 U/L 08/20/2017 Comp Metabolic Vse744 BI LI T 0.6 mg/dL 08/20/2017 Comp Metabolic Mrc288 AL BUMIN 4.0 g/dL 08/20/2017 Comp Metabolic Rze698 TP RO 6.6 g/dL 08/20/2017 Comp Metabolic Myo045 GL OB 2.6 g/dL 08/20/2017 Comp Metabolic Cfn933 A/ G Ratio 1.5 Ratio 08/20/2017 Comp Metabolic Vyd211 Os mo 275 mOsmo 08/20/2017 Vitamin D 25 Oh Uep7318 VITAMIN D, 25 HYDROXY 30.96 ng/mL 08/20/2017 B12 Dpj610 B12 >1500.00 pg/ml 02/22/2017 Cbc With Differential [...] 35.7 pg 02/20/2017 Cbc With Differential Ord2 [place]% 6.3 % 02/20/2017 Cbc With Differential Ord2 [...] 3.19 K/ul 02/20/2017 Cbc With Differential Ord2 [place] ABS# 0.5 K/ul 02/20/2017 Cbc With Differential Ord2 Eos ABS# 0.4 K/ul 02/20/2017 Cbc With Differential Ord2 Baso ABS# 0.0 K/ul 02/20/2017 Comp Metabolic Jhw647 NA 138 mEq/L 02/20/2017 Comp Metabolic Jhr592 K 4.5 mEq/L 02/20/2017 Comp Metabolic Ctq755 CL 101 mEq/L 02/20/2017 Comp Metabolic Ojh998 CO2 31.0 mEq/L 02/20/2017 Comp Metabolic Azd947 AN ION GAP 11 02/20/2017 Comp Metabolic Wfu099 GL UCOSE 120 mg/dL 02/20/2017 Comp Metabolic Jxl506 Cr eat 0.9 mg/dL 02/20/2017 Comp Metabolic Nbt152 eG FR 83 ml/min/1.73m2 02/20 Comp Metabolic Foc258 BUN 15 mg/dL 02/20/2017 Comp Metabolic Uyn876 B/ C Ratio 16.1 Ratio 02/20/2017 Comp Metabolic Gfu070 CA LCIUM 9.1 mg/dL 02/20/2017 Comp Metabolic Hgt344 AL K PHOS 67 U/L 02/20/2017 Comp Metabolic Zwe958 T(SGOT) 15 U/L 02/20/2017 Comp Metabolic Gvt449 AL T(SGPT) 16 U/L 02/20/2017 Comp Metabolic Ekw553 BI LI T 0.5 mg/dL 02/20/2017 Comp Metabolic Pho942 AL BUMIN 4.0 g/dL 02/20/2017 Comp Metabolic Upt598 TP RO 6.4 g/dL 02/20/2017 Comp Metabolic Hdq421 GL OB 2.4 g/dL 02/20/2017 Comp Metabolic Kfh137 A/ G Ratio 1.7 Ratio 02/20/2017 Comp Metabolic Bwt777 Os mo 278 mOsmo 02/20/2017 Tsh Ord6 hTSH II 2.05 uIU/mL 02/20/2017 %Hba1C Yhf859 % HbA1c 24149-4 7.6 % 02/20/2017 %Hba1C Htd621 Gluc Ave 171 mg/dL 02/20/2017 Vitamin D 25 Oh Glf5615 VITAMIN D, 25 HYDROXY 44.40 ng/mL 12/21/2016 Comp Metabolic Xyk038 NA 131 mEq/L 12/21/2016 Comp Metabolic Nct496 K 4.2 mEq/L 12/21/2016 Comp Metabolic Eky099 CL 97 mEq/L 12/21/2016 Comp Metabolic Peb874 CO2 27.0 mEq/L 12/21/2016 Comp Metabolic Gcw601 AN ION GAP 11 12/21/2016 Comp Metabolic Lya401 GL UCOSE 266 mg/dL 12/21/2016 Comp Metabolic Aho229 Cr eat 0.9 mg/dL 12/21/2016 Comp Metabolic Hqf498 eG FR 88 ml/min/1.73m2 12/21 Comp Metabolic Ydw053 BUN 12 mg/dL 12/21/2016 Comp Metabolic Dqr255 B/ C Ratio 13.6 Ratio 12/21/2016 Comp Metabolic Ffp227 CA LCIUM 8.6 mg/dL 12/21/2016 Comp Metabolic Wje518 AL K PHOS 69 U/L 12/21/2016 Comp Metabolic Zyy998 T(SGOT) 15 U/L 12/21/2016 Comp Metabolic Wya152 AL T(SGPT) 14 U/L 12/21/2016 Comp Metabolic Btn501 BI LI T 0.3 mg/dL 12/21/2016 Comp Metabolic Skl854 AL BUMIN 3.7 g/dL 12/21/2016 Comp Metabolic Gkk167 TP RO 5.9 g/dL 12/21/2016 Comp Metabolic Hvy779 GL OB 2.2 g/dL 12/21/2016 Comp Metabolic Ujp130 A/ G Ratio 1.7 Ratio 12/21/2016 Comp Metabolic Eap275 Os mo 272 mOsmo 12/21/2016 Cbc With [...] 34.6 pg 12/21/2016 Cbc With Differential Ord2 [place]% 6.9 % 12/21/2016 Cbc With Differential Ord2 [...] 2.05 K/ul 12/21/2016 Cbc With Differential Ord2 [place] ABS# 0.4 K/ul 12/21/2016 Cbc With Differential Ord2 Eos ABS# 0.2 K/ul 12/21/2016 Cbc With Differential Ord2 Baso ABS# 0.0 K/ul 12/21/2016 Comp Metabolic Oal748 NA 138 mEq/L 09/03/2016 Comp Metabolic Psw974 K 4.5 mEq/L 09/03/2016 Comp Metabolic Fmq625 CL 102 mEq/L 09/03/2016 Comp Metabolic Ezm237 CO2 30.0 mEq/L 09/03/2016 Comp Metabolic Hrw116 AN ION GAP 11 09/03/2016 Comp Metabolic Auq921 GL UCOSE 113 mg/dL 09/03/2016 Comp Metabolic Dpq697 Cr eat 1.0 mg/dL 09/03/2016 Comp Metabolic Kgh600 eG FR 81 ml/min/1.73m2 09/03 Comp Metabolic Ccd740 BUN 10 mg/dL 09/03/2016 Comp Metabolic Ceg940 B/ C Ratio 10.5 Ratio 09/03/2016 Comp Metabolic Otr844 CA LCIUM 9.1 mg/dL 09/03/2016 Comp Metabolic Wro721 AL K PHOS 71 U/L 09/03/2016 Comp Metabolic Xdf038 T(SGOT) 18 U/L 09/03/2016 Comp Metabolic Itu413 AL T(SGPT) 17 U/L 09/03/2016 Comp Metabolic Ezn047 BI LI T 0.6 mg/dL 09/03/2016 Comp Metabolic Nil738 AL BUMIN 4.1 g/dL 09/03/2016 Comp Metabolic Ltm441 TP RO 6.4 g/dL 09/03/2016 Comp Metabolic Vnp034 GL OB 2.3 g/dL 09/03/2016 Comp Metabolic Ymn043 A/ G Ratio 1.8 Ratio 09/03/2016 Comp Metabolic Qeu053 Os mo 276 mOsmo 09/03/2016 Vitamin D 25 Oh Grg2175 VITAMIN D, 25 HYDROXY 28.23 ng/mL 09/03/2016 [...] 34.4 pg 09/03/2016 Cbc With Differential Ord2 [place]% 8.9 % 09/03/2016 Cbc With Differential Ord2 [...] 3.34 K/ul 09/03/2016 Cbc With Differential Ord2 [place] ABS# 0.7 K/ul 09/03/2016 Cbc With Differential Ord2 Eos ABS# 0.4 K/ul 09/03/2016 Cbc With Differential Ord2 Baso ABS# 0.0 K/ul 09/03/2016 Lipid Ord30 CHOL 120 mg/dL 09/03/2016 Lipid Ord30 HDL 33.0 mg/dl 09/03/2016 Lipid Ord30 TRIG 161 mg/dL 09/03/2016 Lipid Ord30 LDL 55 mg/dL 09/03/2016 Lipid Ord30 C/HDL 3.6 Ratio 09/03/2016 %Hba1C Val763 % HbA1c 29127-4 7.5 % 09/03/2016 %Hba1C Ipm641 Gluc Ave 169 mg/dL 09/03/2016 Tsh Ord6 hTSH II 1.50 uIU/mL 05/23/2016 %Hba1C Omk619 % HbA1c 33154-1 7.6 % 05/23/2016 %Hba1C Pld755 Gluc Ave 171 mg/dL 05/23/2016 Comp Metabolic Yzg647 NA 135 mEq/L 05/23/2016 Comp Metabolic Bev729 K 4.4 mEq/L 05/23/2016 Comp Metabolic Hsl154 CL 99 mEq/L 05/23/2016 Comp Metabolic Eah355 CO2 28.0 mEq/L 05/23/2016 Comp Metabolic Wkl912 AN ION GAP 12 05/23/2016 Comp Metabolic Sqs095 GL UCOSE 257 mg/dL 05/23/2016 Comp Metabolic Xsh626 Cr eat 0.8 mg/dL 05/23/2016 Comp Metabolic Vmd225 eG FR 95 ml/min/1.73m2 05/23 Comp Metabolic Axv650 BUN 11 mg/dL 05/23/2016 Comp Metabolic Kwf609 B/ C Ratio 13.3 Ratio 05/23/2016 Comp Metabolic Hkd133 CA LCIUM 9.0 mg/dL 05/23/2016 Comp Metabolic Miw212 AL K PHOS 82 U/L 05/23/2016 Comp Metabolic Huz213 T(SGOT) 21 U/L 05/23/2016 Comp Metabolic Mut763 AL T(SGPT) 20 U/L 05/23/2016 Comp Metabolic Sax846 BI LI T 0.3 mg/dL 05/23/2016 Comp Metabolic Cnq533 AL BUMIN 4.0 g/dL 05/23/2016 Comp Metabolic Ssp041 TP RO 6.4 g/dL 05/23/2016 Comp Metabolic Dem859 GL OB 2.4 g/dL 05/23/2016 Comp Metabolic Hwf020 A/ G Ratio 1.6 Ratio 05/23/2016 Comp Metabolic Csj789 Os mo 278 mOsmo 05/23/2016 Cbc With [...] 34.5 pg 05/23/2016 Cbc With Differential Ord2 [place]% 6.1 % 05/23/2016 Cbc With Differential Ord2 [...] 2.38 K/ul 05/23/2016 Cbc With Differential Ord2 [place] ABS# 0.4 K/ul 05/23/2016 Cbc With Differential Ord2 Eos ABS# 0.2 K/ul 05/23/2016 Cbc With Differential Ord2 Baso ABS# 0.0 K/ul 05/23/2016 B12 Vuf280 B12 597.00 pg/ml 05/23/2016 Metabolic Ord15 NA [...] 0.92 uIU/mL 07/29/2015 Vitamin D 25 Oh Qzk3412 VITAMIN D, 25 HYDROXY 26.93 ng/mL 07/29/2015 %Hba1C Lcz905 % HbA1c 85639-2 8.8 % 07/29/2015 %Hba1C Xuw529 Gluc Ave 206 mg/dL 07/29/2015 Cbc With [...] Ord2 RDW 14.9 % 07/29/2015 Comp Metabolic Tqm375 NA 138 mEq/L 07/29/2015 Comp Metabolic Zgz561 K 4.4 mEq/L 07/29/2015 Comp Metabolic Mib556 CL 102 mEq/L 07/29/2015 Comp Metabolic Bpz667 CO2 28.0 mEq/L 07/29/2015 Comp Metabolic Mli108 AN ION GAP 12 07/29/2015 Comp Metabolic Nhm327 GL UCOSE 261 mg/dL 07/29/2015 Comp Metabolic Gql777 Cr eat 1.0 mg/dL 07/29/2015 Comp Metabolic Kqj311 eG FR 77 ml/min/1.73m2 07/29 Comp Metabolic Bse794 BUN 13 mg/dL 07/29/2015 Comp Metabolic Iwn593 B/ C Ratio 13.0 Ratio 07/29/2015 Comp Metabolic Mrj799 CA LCIUM 9.1 mg/dL 07/29/2015 Comp Metabolic Rol487 AL K PHOS 64 U/L 07/29/2015 Comp Metabolic Oew943 T(SGOT) 20 U/L 07/29/2015 Comp Metabolic Kex199 AL T(SGPT) 22 U/L 07/29/2015 Comp Metabolic Xym385 BI LI T 0.4 mg/dL 07/29/2015 Comp Metabolic Kjn572 AL BUMIN 4.0 g/dL 07/29/2015 Comp Metabolic Inf969 TP RO 6.1 g/dL 07/29/2015 Comp Metabolic Sam962 GL OB 2.1 g/dL 07/29/2015 Comp Metabolic Jlp745 A/ G Ratio 1.9 Ratio 07/29/2015 Comp Metabolic Utd739 Os mo 285 mOsmo 07/29/2015 Cbc With [...] Ord2 RDW 13.1 % 05/06/2015 Comp Metabolic Uoa318 NA 134 mEq/L 05/06/2015 Comp Metabolic Awc257 K 4.4 mEq/L 05/06/2015 Comp Metabolic Wuu854 CL 98 mEq/L 05/06/2015 Comp Metabolic Ofr329 CO2 29.0 mEq/L 05/06/2015 Comp Metabolic Nma632 AN ION GAP 11 05/06/2015 Comp Metabolic Vnf289 GL UCOSE 321 mg/dL 05/06/2015 Comp Metabolic Zbq462 Cr eat 1.0 mg/dL 05/06/2015 Comp Metabolic Fed464 eG FR 78 ml/min/1.73m2 05/06 Comp Metabolic Mio237 BUN 20 mg/dL 05/06/2015 Comp Metabolic Vfp806 B/ C Ratio 20.4 Ratio 05/06/2015 Comp Metabolic Mcp712 CA LCIUM 9.5 mg/dL 05/06/2015 Comp Metabolic Bji254 AL K PHOS 62 U/L 05/06/2015 Comp Metabolic Gjg606 T(SGOT) 21 U/L 05/06/2015 Comp Metabolic Lpw440 AL T(SGPT) 37 U/L 05/06/2015 Comp Metabolic Zmj271 BI LI T 0.4 mg/dL 05/06/2015 Comp Metabolic Oje617 AL BUMIN 3.8 g/dL 05/06/2015 Comp Metabolic Acy749 TP RO 6.1 g/dL 05/06/2015 Comp Metabolic Nkz738 GL OB 2.3 g/dL 05/06/2015 Comp Metabolic Hjv831 A/ G Ratio 1.7 Ratio 05/06/2015 Comp Metabolic Xgv894 Os mo 283 mOsmo 05/06/2015 Tsh Ord6 hTSH II 1.65 uIU/mL 02/18/2015 B12 Dhi848 B12 605.00 pg/ml 02/18/2015 %Hba1C Mnz189 % HbA1c 43103-2 8.3 % 02/18/2015 %Hba1C Wch769 Gluc Ave 192 mg/dL 02/18/2015 Cbc With [...] Ord2 RDW 13.9 % 02/17/2015 Comp Metabolic Apw945 NA 137 mEq/L 02/17/2015 Comp Metabolic Cfg647 K 4.4 mEq/L 02/17/2015 Comp Metabolic Gqu604 CL 100 mEq/L 02/17/2015 Comp Metabolic Yws461 CO2 31.0 mEq/L 02/17/2015 Comp Metabolic Nnl269 AN ION GAP 10 02/17/2015 Comp Metabolic Ibg251 GL UCOSE 307 mg/dL 02/17/2015 Comp Metabolic Jxv080 Cr eat 1.0 mg/dL 02/17/2015 Comp Metabolic Rcb974 eG FR 74 ml/min/1.73m2 02/17 Comp Metabolic Nkr778 BUN 22 mg/dL 02/17/2015 Comp Metabolic Xda217 B/ C Ratio 21.4 Ratio 02/17/2015 Comp Metabolic Nea383 CA LCIUM 9.5 mg/dL 02/17/2015 Comp Metabolic Efi363 AL K PHOS 78 U/L 02/17/2015 Comp Metabolic Uyz428 T(SGOT) 18 U/L 02/17/2015 Comp Metabolic Xmo036 AL T(SGPT) 32 U/L 02/17/2015 Comp Metabolic Jkh255 BI LI T 0.5 mg/dL 02/17/2015 Comp Metabolic Uzm824 AL BUMIN 4.3 g/dL 02/17/2015 Comp Metabolic Idq747 TP RO 6.7 g/dL 02/17/2015 Comp Metabolic Xdn960 GL OB 2.4 g/dL 02/17/2015 Comp Metabolic Ezl318 A/ G Ratio 1.8 Ratio 02/17/2015 Comp Metabolic Fnh580 Os mo 289 mOsmo 02/17/2015 Review of Systems System Result Effective Dates Constitutional No recent illness 10/17/2018 Constitutional No [...] aphasia 03/24/2015 None Full Exam - General 1995 Ears/Nose/Throat [...] inspection of skin Location: face 03/07/2015 on amish, cheeks,actinic keratosis with irritation on left cheek - left amish - croptherapy on these two lesions - [...] Procedure Codes Date THER/PROPH/DIAG INJ SC/IM CPT-4: 87639 11/18/2018 THER/PROPH/DIAG INJ SC/IM CPT-4: 87628 11/04/2018 THER/PROPH/DIAG INJ SC/IM CPT-4: 05608 10/14/2018 THER/PROPH/DIAG INJ SC/IM CPT-4: 55183 10/03/2018 THER/PROPH/DIAG INJ SC/IM CPT-4: 23645 09/23/2018 THER/PROPH/DIAG INJ SC/IM CPT-4: 96171 09/02/2018 THER/PROPH/DIAG INJ SC/IM CPT-4: 78791 08/21/2018 THER/PROPH/DIAG INJ SC/IM CPT-4: 14888 08/08/2018 THER/PROPH/DIAG INJ SC/IM CPT-4: 73550 07/28/2018 THER/PROPH/DIAG INJ SC/IM CPT-4: 24716 07/16/2018 THER/PROPH/DIAG INJ SC/IM CPT-4: 05233 07/02/2018 PPPS, SUBSEQ VISIT CPT- 4: G0439 06/30/2018 THER/PROPH/DIAG INJ SC/IM CPT-4: 03376 06/24/2018 THER/PROPH/DIAG INJ SC/IM CPT-4: 31375 06/13/2018 ADMIN INFLUENZA VIRU S VAC CPT-4: G0008 06/06/2018 FLU VACC PRSV FREE I NC ANTIG CPT-4: 29049 06/06/2018 THER/PROPH/DIAG INJ SC/IM CPT-4: 87561 06/05/2018 THER/PROPH/DIAG INJ SC/IM CPT-4: 33302 05/30/2018 THER/PROPH/DIAG INJ SC/IM CPT-4: 69822 05/22/2018 THER/PROPH/DIAG INJ SC/IM CPT-4: 61304 05/12/2018 THER/PROPH/DIAG INJ SC/IM CPT-4: 58419 05/02/2018 THER/PROPH/DIAG INJ SC/IM CPT-4: 81998 04/24/2018 THER/PROPH/DIAG INJ SC/IM CPT-4: 37024 04/17/2018 KETOROLAC TROMETHAMI NE INJ CPT-4: J1885 03/07/2018 URINALYSIS NONAUTO W /O SCOPE CPT-4: 87086 03/07/2018 THER/PROPH/DIAG INJ SC/IM CPT-4: 48430 02/20/2018 TRIAMCINOLONE ACET I [place] NOS CPT-4: J3301 01/30/2018 THER/PROPH/DIAG INJ SC/IM CPT-4: 87350 01/17/2018 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 NURSE 3-[address]: 117638318 CPT-4: G0436 04/25/2017 ADMIN INFLUENZA VIRU S VAC CPT-4: G0008 04/25/2017 ADMIN PNEUMOCOCCAL V ACCINE SNOMED CT: 71480306 CPT-4: G0009 04/25/2017 PNEUMOCOCCAL VACC [address]: 13347310 CPT-4: 37780 04/25/2017 FLU VACC PRSV FREE I NC ANTIG CPT-4: 30777 04/25/2017 ADMIN INFLUENZA VIRU S VAC CPT-4: G0008 05/22/2016 FLU VACC 4 TELLY 3 YRS PLUS IM Formatting Model/CDA Sections, Assigned to/Angela Clemons SNOMED CT: 96562763 CPT-4: 46713Agknaby 05/22/2016 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 NURSE 3-[address]: 122685046 CPT-4: G0436 11/25/2015 URINALYSIS NONAUTO W /O SCOPE CPT-4: 58969 05/09/2015 TRIAMCINOLONE ACET I [place] NOS CPT-4: J3301 04/12/2015 DESTRUCT PREMALG LESION CPT-4: 78221 03/07/2015 DESTRUCT PREMALG LES 2-14 CPT-4: 47875 03/07/2015 REMOVE IMPACTED EAR WAX UNI CPT-4: 31335 12/31/2014 THER/PROPH/DIAG INJ SC/IM CPT-4: 67616 12/23/2014 TRIAMCINOLONE ACET I [place] NOS CPT-4: J3301 12/23/2014 Vital Signs Date Vital 10/17/2018 Blood Pressure 1: 124/54 Code: 8480-6 BMI: 21.9 Code: 86221-6 Heart Rate 1: 64 bpm Height: 5'11" SpO2: 93% Weight: 157 lbs 09/02/2018 Blood Pressure 1: 140/80 Code: 8480-6 BMI: 21.2 Code: 45473-7 Heart Rate 1: 68 bpm Height: 5'11" SpO2: 97% Weight: 152 lbs 06/30/2018 BMI: 21.8 Code: 29758-8 Height: 5'11" Weight: 156 lbs 06/06/2018 Blood Pressure 1: 128/76 Code: 8480-6 BMI: 22.0 Code: 76288-0 Heart Rate 1: 81 bpm Height: 5'11" SpO2: 92% Weight: 158 lbs 04/04/2018 Blood Pressure 1: 124/70 Code: 8480-6 BMI: 20.8 Code: 75021-3 Heart Rate 1: 65 bpm Height: 5'11" SpO2: 95% Weight: 149 lbs 03/07/2018 Blood Pressure 1: 148/70 Code: 8480-6 BMI: 21.2 Code: 25766-2 Heart Rate 1: 66 bpm Height: 5'11" SpO2: 94% Weight: 152 lbs 02/20/2018 Blood Pressure 1: 134/58 Code: 8480-6 BMI: 20.5 Code: 73058-1 Heart Rate 1: 61 bpm Height: 5'11" SpO2: 92% Weight: 147 lbs 01/30/2018 Blood Pressure 1: 158/68 Code: 8480-6 BMI: 21.5 Code: 15687-9 Heart Rate 1: 71 bpm Height: 5'11" SpO2: 92% Weight: 154 lbs 01/14/2018 Blood Pressure 1: 156/70 Code: 8480-6 Height: Weight: 01/13/2018 Blood Pressure 1: 148/62 Code: 8480-6 BMI: 20.9 Code: 49913-3 Heart Rate 1: 54 bpm Height: 5'11" SpO2: 97% Weight: 150 lbs 11/19/2017 Blood Pressure 1: 150/60 Code: 8480-6 BMI: 21.8 Code: 92629-7 Heart Rate 1: 63 bpm Height: 5'11" SpO2: 98% Weight: 156 lbs 10/02/2017 Blood Pressure 1: 168/60 Code: 8480-6 BMI: 21.9 Code: 49744-3 Heart Rate 1: 52 bpm Height: 5'11" SpO2: 97% Weight: 157 lbs 07/23/2017 Blood Pressure 1: 170/70 Code: 8480-6 BMI: 21.8 Code: 91965-6 Heart Rate 1: 65 bpm Height: 5'11" SpO2: 98% Weight: 156 lbs 04/25/2017 Blood Pressure 1: 138/60 Code: 8480-6 BMI: 21.6 Code: 96145-7 Heart Rate 1: 55 bpm Height: 5'11" SpO2: 93% Weight: 155 lbs 02/19/2017 Blood Pressure 1: 138/64 Code: 8480-6 BMI: 21.3 Code: 98439-7 Heart Rate 1: 52 bpm Height: 5'11" SpO2: 96% Weight: 152 lbs 8 oz 01/21/2017 Blood Pressure 1: 160/68 Code: 8480-6 BMI: 21.3 Code: 98340-2 Heart Rate 1: 62 bpm Height: 5'11" SpO2: 96% Weight: 153 lbs 12/20/2016 Blood Pressure 1: 124/66 Code: 8480-6 BMI: 21.5 Code: 39063-4 Height: 5'11" Weight: 154 lbs 08/23/2016 Blood Pressure 1: 142/52 Code: 8480-6 BMI: 21.2 Code: 78114-4 Heart Rate 1: 54 bpm Height: 5'11" SpO2: 96% Weight: 152 lbs 05/22/2016 Blood Pressure 1: 130/76 Code: 8480-6 BMI: 21.5 Code: 06891-6 Heart Rate 1: 78 bpm Height: 5'11" SpO2: 92% Weight: 154 lbs 02/24/2016 Blood Pressure 1: 128/80 Code: 8480-6 BMI: 21.2 Code: 60388-9 Heart Rate 1: 74 bpm Height: 5'11" SpO2: 96% Weight: 152 lbs 01/27/2016 Blood Pressure 1: 144/60 Code: 8480-6 BMI: 21.2 Code: 20893-6 Heart Rate 1: 74 bpm Height: 5'11" SpO2: 97% Weight: 152 lbs 11/25/2015 Blood Pressure 1: 110/52 Code: 8480-6 BMI: 21.9 Code: 62281-6 Heart Rate 1: 65 bpm Height: 5'11" SpO2: 92% Weight: 157 lbs 07/28/2015 Blood Pressure 1: 138/62 Code: 8480-6 BMI: 21.8 Code: 19682-9 Heart Rate 1: 63 bpm Height: 5'11" SpO2: 91% Weight: 156 lbs 05/26/2015 Blood Pressure 1: 120/58 Code: 8480-6 BMI: 21.5 Code: 09451-4 Heart Rate 1: 99 bpm Height: 5'11" SpO2: 96% Weight: 154 lbs 05/06/2015 Blood Pressure 1: 120/58 Code: 8480-6 BMI: 21.2 Code: 74540-5 Heart Rate 1: 66 bpm Height: 5'11" SpO2: 96% Weight: 152 lbs 04/25/2015 Blood Pressure 1: 136/62 Code: 8480-6 BMI: 21.2 Code: 98750-3 Heart Rate 1: 63 bpm Height: 5'11" SpO2: 97% Weight: 152 lbs 04/12/2015 Blood Pressure 1: 160/58 Code: 8480-6 BMI: 21.6 Code: 61357-0 Heart Rate 1: 62 bpm Height: 5'11" Weight: 155 lbs 03/24/2015 Blood Pressure 1: 138/68 Code: 8480-6 BMI: 22.0 Code: 90619-8 Heart Rate 1: 65 bpm Height: 5'11" SpO2: 96% Weight: 158 lbs 03/07/2015 Blood Pressure 1: 116/52 Code: 8480-6 BMI: 22.2 Code: 80324-7 Heart Rate 1: 64 bpm Height: 5'11" SpO2: 97% Weight: 159 lbs 02/17/2015 Blood Pressure 1: 148/58 Code: 8480-6 BMI: 21.3 Code: 70570-9 Heart Rate 1: 63 bpm Height: 5'11" SpO2: 97% Weight: 153 lbs 12/31/2014 Blood Pressure 1: 100/60 Code: 8480-6 BMI: 21.8 Code: 23131-8 Heart Rate 1: 68 bpm Height: 5'11" Weight: 156 lbs 12/23/2014 Blood Pressure 1: 148/64 Code: 8480-6 BMI: 21.9 Code: 43950-9 Heart Rate 1: 64 bpm Height: 5'11" Weight: 157 lbs 12/09/2014 Blood Pressure 1: 152/62 Code: 8480-6 Heart Rate 1: 58 bpm SpO2: 98% Weight: 159 lbs Functional Status No Functional Status data History of Present Illness Symptom Name Status Resu lt Effective Date Notes Quality constant 10/17/2018 None Quality worsening 10/17/2018 [...] 11/25/2015 None cough Location in the [facility] 11/25/2015 None cough Quality acute 11/25/2015 [...] Encounters Encounter Performer Loca tion Codes Date ([id number]) 47651 EST. P ATIENT, LEVEL III Diagnosis: Orthostatic hypotension[ICD10: I95.1] Diagnosis: Low back pain[ICD10: M54.5] Diagnosis: Unsteadiness on feet[ICD10: R26.81] Karmen Ash MD, [facility] CPT-4: 72238 10/17/2018 ([id number]) 35639 EST. 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 P ATIENT, LEVEL IV Diagnosis: Cellulitis of face[ICD10: L03.211] Diagnosis: Type 2 diabetes mellitus without complications[ICD10: E11.9] Diagnosis: Essential (primary) hypertension[ICD10: I10] Diagnosis: Encounter for immunization[ICD10: Z23] Karmen Ash MD, [facility] CPT-4: 94374 06/06/2018 ([id number]) 99882 EST. 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 P ATIENT, LEVEL III Diagnosis: Low back pain[ICD10: M54.5] Diagnosis: Dysuria[ICD10: R30.0] [facility] CPT-4: 90708 03/07/2018 ([id number]) 98628 EST. 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 P ATIENT, LEVEL III Diagnosis: Chronic obstructive pulmonary disease with (acute) exacerbation[ICD10: J44.1] Karmen Ash MD, [facility] [place] CPT-4: 38489 01/30/2018 26760 EST. PATIENT, LEVEL II Diagnosis: Insect bite (nonvenomous), left lower leg, initial encounter[ICD10: S80.862A] Karmen Ash MD, [facility] [place] CPT-4: 43228 01/14/2018 ([id number]) 10761 EST. P ATIENT, LEVEL IV Diagnosis: Type 2 diabetes mellitus with hyperglycemia[ICD10: E11.65] Diagnosis: Chronic obstructive pulmonary disease, unspecified[ICD10: J44.9] Diagnosis: Other fatigue[ICD10: R53.83] Karmen Ash MD, [facility] [place] CPT- 4: 81902 01/13/2018 ([id number]) 80936 EST. P ATIENT, LEVEL IV Diagnosis: Type 2 diabetes mellitus with hyperglycemia[ICD10: E11.65] Diagnosis: Vitamin D deficiency, unspecified[ICD10: E55.9] Diagnosis: Essential (primary) hypertension[ICD10: I10] Diagnosis: Abdominal distension (gaseous)[ICD10: R14.0] Diagnosis: Drug induced constipation[ICD10: K59.03] Karmen Ash MD, [facility] [place] CPT-4: 23577 11/19/2017 43142 EST. PATIENT, LEVEL IV Diagnosis: Low back pain[ICD10: M54.5] Diagnosis: Chronic obstructive pulmonary disease, unspecified[ICD10: J44.9] Brunilda Ash MD, [facility] [place] CPT-4: 65813 10/02/2017 ([id number]) 75753 EST. P ATIENT, LEVEL IV Diagnosis: Essential (primary) hypertension[ICD10: I10] Diagnosis: Type 2 diabetes mellitus with hyperglycemia[ICD10: E11.65] Diagnosis: Vitamin D deficiency, unspecified[ICD10: E55.9] Diagnosis: Mixed hyperlipidemia[ICD10: E78.2] [facility] CPT-4: 45931 07/23/2017 ([id number]) 11261 EST. P ATIENT, LEVEL IV Diagnosis: Essential (primary) hypertension[ICD10: I10] Diagnosis: Type 2 diabetes mellitus with hyperglycemia[ICD10: E11.65] Diagnosis: Chronic obstructive pulmonary disease, unspecified[ICD10: J44.9] Diagnosis: Nicotine dependence, unspecified, uncomplicated[ICD10: F17.200] Diagnosis: Encounter for immunization[ICD10: Z23] Karmen Ash MD, [facility] [place] CPT-4: 17909 04/25/2017 ([id number]) 76976 EST. P ATIENT, LEVEL IV Diagnosis: Type 2 diabetes mellitus with hyperglycemia[ICD10: E11.65] Diagnosis: Essential (primary) hypertension[ICD10: I10] Diagnosis: Anemia, unspecified[ICD10: D64.9] Karmen Ash MD, [facility] [place] CPT- 4: 78693 02/19/2017 ([id number]) 76969 EST. P ATIENT, LEVEL IV Diagnosis: Slow transit constipation[ICD10: K59.01] Diagnosis: Gastro-esophageal reflux disease without esophagitis[ICD10: K21.9] Diagnosis: Essential (primary) hypertension[ICD10: I10] Karmen Ash MD, [facility] [place] CPT-4: 89719 01/21/2017 ([id number]) 73935 EST. P ATIENT, LEVEL IV Diagnosis: Type 2 diabetes mellitus with hyperglycemia[ICD10: E11.65] Diagnosis: Vitamin D deficiency, unspecified[ICD10: E55.9] Diagnosis: Essential (primary) hypertension[ICD10: I10] Diagnosis: Chronic obstructive pulmonary disease, unspecified[ICD10: J44.9] Karmen Ash MD, [facility] [place] CPT-4: 65518 12/20/2016 ([id number]) 90487 EST. P ATIENT, LEVEL IV Diagnosis: Type 2 diabetes mellitus with hyperglycemia[ICD10: E11.65] Diagnosis: Essential (primary) hypertension[ICD10: I10] Diagnosis: Mixed hyperlipidemia[ICD10: E78.2] Diagnosis: Vitamin D deficiency, unspecified[ICD10: E55.9] Karmen Ash MD, [facility] [place] CPT-4: 04215 08/23/2016 ([id number]) 75019 EST. P ATIENT, LEVEL IV Diagnosis: Type 2 diabetes mellitus with hyperglycemia[ICD10: E11.65] Diagnosis: Essential (primary) hypertension[ICD10: I10] Diagnosis: Chronic obstructive pulmonary disease, unspecified[ICD10: J44.9] Karmen Ash MD, [facility] [place] CPT-4: 17059 05/22/2016 ([id number]) 39752 EST. P ATIENT, LEVEL III Diagnosis: Dysuria[ICD10: R30.0] Diagnosis: Essential (primary) hypertension[ICD10: I10] Karmen Ash MD, [facility] CPT-4: 72895 02/24/2016 ([id number]) 72193 EST. P ATIENT, LEVEL IV Diagnosis: Gastro-esophageal reflux disease without esophagitis[ICD10: K21.9] Diagnosis: Slow transit constipation[ICD10: K59.01] Diagnosis: Type 2 diabetes mellitus with hyperglycemia[ICD10: E11.65] Karmen Ash MD, [facility] [place] CPT-4: 21787 01/27/2016 ([id number]) 41590 EST. P ATIENT, LEVEL IV Diagnosis: Essential (primary) hypertension[ICD10: I10] Diagnosis: Type 2 diabetes mellitus with hyperglycemia[ICD10: E11.65] Diagnosis: Vitamin D deficiency, unspecified[ICD10: E55.9] Diagnosis: Chronic obstructive pulmonary disease, unspecified[ICD10: J44.9] Diagnosis: Mixed hyperlipidemia[ICD10: E78.2] Diagnosis: Tobacco use[ICD10: Z72.0] Karmen Ash MD, [facility] CPT- 4: 17886 11/25/2015 ([id number]) 67778 EST. P ATIENT, LEVEL IV Diagnosis: Type 2 diabetes mellitus with hyperglycemia[ICD10: E11.65] Diagnosis: Essential (primary) hypertension[ICD10: I10] Diagnosis: Vitamin D deficiency, unspecified[ICD10: E55.9] Karmen Ash MD, [facility] [place] CPT-4: 30525 07/28/2015 ([id number]) 10565 EST. P ATIENT, LEVEL III Diagnosis: Type 2 diabetes mellitus with hyperglycemia[ICD10: E11.65] Diagnosis: Essential (primary) hypertension[ICD10: I10] Violeta Ash MD, [facility] CPT-4: 58957 05/26/2015 ([id number]) 33381 EST. P ATIENT, LEVEL III Diagnosis: DIABETES TYPE II[ICD9: 250.00] Diagnosis: COPD (chronic obstructive pulmonary disease)[ICD9: 496] Diagnosis: ESSENTIAL HYPERTENSION[ICD9: 401.9] Diagnosis: Cough[ICD9: 786.2] Violeta Ash MD, [facility] CPT-4: 27083 05/06/2015 ([id number]) 03298 EST. P ATIENT, LEVEL III Diagnosis: COPD (chronic obstructive pulmonary disease)[ICD9: 496] Diagnosis: DIABETES TYPE II[ICD9: 250.00] Diagnosis: Muscle ache[ICD9: 729.1] Karmen Ash MD, [facility] CPT- 4: 64746 04/25/2015 ([id number]) 56675 EST. P ATIENT, LEVEL III Diagnosis: ACTINIC KERATOSIS[ICD9: 702.0] Diagnosis: COPD (chronic obstructive pulmonary disease)[ICD9: 496] Diagnosis: DIABETES TYPE II[ICD9: 250.00] Diagnosis: ACUTE URI[ICD9: 465.9] Violeta Ash MD, [facility] CPT-4: 47572 04/12/2015 ([id number]) 80588 EST. P ATIENT, LEVEL III Diagnosis: DIABETES TYPE II[ICD9: 250.00] Violeta Ash MD, [facility] CPT-4: 13679 03/24/2015 ([id number]) 13746 EST. P ATIENT, LEVEL IV Diagnosis: DIABETES TYPE II[ICD9: 250.00] Diagnosis: Hypoglycemia[ICD9: 251.2] Diagnosis: Skin texture changes[ICD9: 782.8] Violeta Ash MD, [facility] CPT-4: 76346 03/07/2015 ([id number]) 84511 EST. P ATIENT, LEVEL IV Diagnosis: COPD (chronic obstructive pulmonary disease)[ICD9: 496] Diagnosis: Fatigue[ICD9: 780.79] Diagnosis: Insulin dependent diabetes mellitus[ICD9: 250.00] Diagnosis: Unsteady gait[ICD9: 781.2] Maame Ash MD, [facility] CPT-4: 70233 02/17/2015 ([id number]) 63735 EST. P ATIENT, LEVEL IV Diagnosis: BPPV (benign paroxysmal positional vertigo)[ICD9: 386.11] Diagnosis: Impacted cerumen[ICD9: 380.4] Diagnosis: ESSENTIAL HYPERTENSION[ICD9: 401.9] Diagnosis: Insulin dependent diabetes mellitus[ICD9: 250.00] [facility] CPT-4: 33327 12/23/2014 ([id number]) OFFICE [facility] - LEVEL 4 Diagnosis: Insulin dependent diabetes mellitus[ICD9: 250.00] Diagnosis: BPPV (benign paroxysmal positional vertigo)[ICD9: 386.11] Diagnosis: COPD (chronic obstructive pulmonary disease)[ICD9: 496] Diagnosis: Tobacco abuse[ICD9: 305.1] Diagnosis: Osteoarthritis[ICD9: 715.90] [facility] CPT- 4: 87776 12/09/2014 Plan of Care Planned Activity Notes C odes Status Date Appointment: Injection 11/18/2018 Patient Education: Patient Medication Summary Completed 11/18/2018 Appointment: Injection 11/04/2018 Patient Education: Patient Medication Summary Completed 11/04/2018 Appointment: [facility]arm[facility] Espinal [facility]el[facility] [phone] (30 min) Complex 10/21/2018 Visit Plan: [...] a walker 10/17/2018 Appointment: Karmen Espinal WPtel: [facility] [phone] (30 min) Complex 10/17/2018 Patient Education: [...] Karmen Espinal WPtel[facility] [phone] (15 min) Moderate 09/02/2018 Patient Education: [...] care surrogate. 06/30/2018 Appointment: Karmen Espinal WPtel: [facility] [phone] [facility] - Annual Wellness Visit 06/30/2018 [...] in pain. 06/06/2018 Appointment: Karmen Espinal WPtel: [facility] [phone] (15 min) Moderate 06/06/2018 Patient Education: [...] months 04/04/2018 Appointment: [facility]el[phone] [phone] [place] (15 min) Moderate 04/04/2018 Patient Education: Patient Medication Summary Completed 04/04/2018 Care Plan: Cbc With Differential Pending 04/04/2018 Care Plan: Testosterone repeat in 2 months Pending 04/04/2018 Appointment: [facility]el[facility] [phone] [phone] [place] (15 min) Moderate 03/25/2018 Visit Plan: Low back pain -history of kidney stone-UA negative today -increase fluids and call if pain does not resolve or if any worse. 03/07/2018 Appointment: Karmen Espinal WPtel: [facility] [phone] [place] (15 min) Moderate 03/07/2018 Patient [...] Karmen Espinal WPtel: [facility] [place] [place] [address] (15 min) Moderate 02/20/2018 Patient Education: Patient Medication Summary Completed 02/20/2018 Visit Plan: COPD EXACERBATION - METHODS ANALYST DATA PROCESSING D is a chronic problem for this [...] changes. 01/30/2018 Appointment: Karmen Espinal WPtel: [phone] [facility] [place] [address] (15 min) Moderate 01/30/2018 Patient Education: Patient Medication Summary Completed 01/30/2018 Appointment: Karmen Espinal WPtel: [facility] [phone] (15 min) Moderate 01/28/2018 Appointment: [place] 01/17/2018 Patient Education: Patient Medication Summary Completed 01/17/2018 Visit Plan: Cellulitis - start oral antibiotics as directed, return to clinic as previously directed, call for acute change in symptoms, worsening redness, warmth, discharge. 01/14/2018 Appointment: Karmen Espinal WPtel: [facility] [phone] (10 min) Simple 01/14/2018 Patient Education: [...] less controlled. 01/13/2018 Appointment: Karmen Espinal WPtel: [facility] [place] [address] (15 min) Moderate 01/13/2018 Patient Education: Patient Medication Summary Completed 01/13/2018 [phone] Patient's informed. Referral info ned monroy. [...] change in blood pressure readings at home. Orjxlwrd-zdtbhv-nnhkr to see Dr Villatoro Constipation-start linzess daily 11/19/2017 Appointment: Karmen Espinal WPtel: [facility] [place] [place] [phone] (30 min) Complex 11/19/2017 Patient Education: Patient Medication Summary Completed 11/19/2017 Care Plan: Referral Order bloating, nausea SNOMED-CT : [id number] Pending 11/19/2017 Visit Plan: Low back pain- [...] acute changes. 10/02/2017 Appointment: Brunilda Maravilla WPtel: [address] [place] [address] (15 min) Moderate 10/02/2017 Patient Education: Patient [...] Appointment: Karmen Espinal WPtel: [phone] [phone] (30 min) Complex 07/23/2017 Patient Education: [...] history 04/25/2017 Appointment: [facility]el[facility] [phone] [phone] (30 min) [facility] 04/25/2017 Patient Education: Patient Medication Summary Completed [...] readings are starting to become less controlled. Uemwzi-meywwsb-cspnh labs 02/19/2017 Appointment: [facility] Espinal WPtel[facility] [phone] [phone] (30 min) Complex 02/19/2017 Patient Education: [...] month 01/21/2017 Appointment: [facility]inal [facility]Ptel[facility] [phone] [phone] (30 min) Complex 01/21/2017 Patient Education: Patient Medication Summary Completed 01/21/2017 Patient Education: Smoking and Tobacco Addiction Completed 01/21/2017 Patient Education: Hypertension Completed 01/21/2017 Care Plan: Referral Order SNOMED-CT : [id number] Pending 01/21/2017 Visit Plan: Diabetes Mellitus - [...] 12/20/2016 Appointment: Karmen Espinal WPtel: [phone] [phone] (30 min) Complex 12/20/2016 Patient Education: Patient Medication Summary Completed 12/20/2016 Patient Education: Smoking and Tobacco Addiction Completed 12/20/2016 Patient Education: Hypertension Completed 12/20/2016 Appointment: Karmen Espinal WPtel: [phone] [phone] (30 min) Complex 09/06/2016 Visit Plan: [...] 08/23/2016 Appointment: Karmen Espinal WPtel: [phone] [phone] (30 min) Complex 08/23/2016 Patient Education: [...] Karmen Espinal WPtel: [facility] [phone] (30 min) Complex 05/22/2016 Patient Education: Patient Medication Summary Completed 05/22/2016 Patient Education: Smoking and Tobacco Addiction Completed 05/22/2016 Care Plan: Cbc With Differential Ordered 05/22/2016 Care Plan: %Hba1C LOIN C : 24935-5 Ordered 05/22/2016 Care Plan: Tsh Ordered 05/22/2016 [...] Karmen Espinal WPtel: [facility] [phone] (30 min) Complex 02/24/2016 Patient Education: [...] this regimen. 01/27/2016 Appointment: Karmen Espinal WPtel: [address] [place] [phone] (30 min) [facility] 01/27/2016 Patient Education: Patient Medication Summary [...] use medication to assist cessation. [facility] Hyperlipidemia - pt has been counseled [...] Completed 05/06/2015 Visit Plan: COPD EXACERBATION - METHODS ANALYST DATA PROCESSING D is a chronic problem for this [...] POTENTIAL SIDE EFFECTS AND WORSENING OF SYMPTOMS. Lwzgkugz-uzejrptx-LPPK SIMVASTATIN X 2 WEEKS AND CALL WITH [...] Care Plan: COMPLETE CBC AUTOMATED LOINC : 98096-8 Ordered 03/24/2015 Visit Plan: Diabetes Mellitus - [...] for removal. 03/07/2015 Appointment: [phone] [facility] (15 min) Moderate 03/07/2015 Patient Education: [...] Care Plan: COMPLETE CBC AUTOMATED LOINC : 15323-4 Ordered 12/23/2014 Visit Plan: BPPV - Benign [...] appt 12/09/2014 Appointment: Karmen Espinal WPtel: [phone] [phone] [place] ([place]) New Patient 12/09/2014 Patient Education: Patient Medication Summary Completed 12/09/2014 Patient Education: .Amazing charts Parox ysmal positional vertigo Completed 12/09/2014 Patient Education: Smoking and Tobacco Addiction Completed 12/09/2014 Referral: Hugo Villatoro HPtel:[phone] [facility] [place] Referral Appointment Requested Referral: Luis Donohue [...] as discussed-follow up in 1 month . Cellulitis - start oral antibiotics as [...] readings are starting to become less controlled. Esfepi-gepytmf-cnfku labs . COPD -recent pneum onia-symptoms have [...] if symptoms not improved on this regimen. INCREASE LISINOPRIL TO 10MG TWICE DAILY RETURN [...] are starting to become less controlled. . Esophageal Reflux - the patient has [...] change in blood pressure readings at home. Wluvaewb-zdhosb-pvcxu to see Dr Villatoro Constipation-start linzess daily [...] DOPA paperwork for health care surrogate. . Diabetes Mellitus - I have recommended [...] POTENTIAL SIDE EFFECTS AND WORSENING OF SYMPTOMS. Pchnklks-whzanswp-EHLI SIMVASTATIN X 2 WEEKS AND CALL WITH [...] low dose CT chest-60 pack/year history . Orthostatic hypote nsion -recommend patient pump [...]
--- OUTSIDE RECORDS SUMMARY | 2020-03-29 08:47 | XMS REPORT | CCD ---
Author Author Dick Espinal Organization Violeta Ash MD, [facility] Address [address] [place] [address] Phone Care Team Providers Care Testing And Regulating Technician Name Role Phone PP Unavailable CCM Unavailable Summary Purpose Interface Exchange Insurance Providers Payer name Policy type / Coverage type Covered alliance party ID Effective Begin Date Effective End Date WPS Medicare Part B Medicare Part B [id number] Unknown Unknown [employer] Medicar e Part B [id number] Unknown Unkn own Family history Father Diagnosis Age At Onset Cancer Unknown Mother Diagnosis Age At Onset Cancer Unknown Social History Social History Element Codes Description Effective Dates Marital status Unknown M arried 12/09/2014 Employment Unknown Retir ed 12/09/[address]: 15218417 Currently smokes tobacco 12/09/2014 Number of years using tobacco Unknown > 50 12/09/2014 Number of cigarettes/day Unknown 30 (Pack and a half) 12/09/[address]: 277271944 Never drinks alcohol 12/09/2014 Allergies, Adverse Reactions, [...] cypiona te 200 mg/mL intramuscular oil RxNorm: 1170760 Milliliter(s) IM 11/18/2018 11/18/2018 In active hydrocodone 5 mg-linh taminophen 325 mg tablet RxNorm: 760081 1 Tablet(s) PO Q6-8H as needed 11/13/2018 12/07/2018 Active testosterone cypiona te 200 mg/mL intramuscular oil RxNorm: 5159252 1/2 Milliliter(s) IM [id number] 11/04/2018 03/03/2019 Active testosterone cypiona te 200 mg/mL intramuscular oil RxNorm: 2755419 Milliliter(s) IM 11/04/2018 11/04/2018 In active nicotine 21 mg/24 hr daily transdermal patch RxNorm: 236459 1 TD daily 10/31/2018 11/29/2018 Ac tive nicotine 21 mg/24 hr daily transdermal patch RxNorm: 188901 1 TD daily 10/31/2018 10/30/2018 In active meclizine 25 mg tablet RxNorm: 184613 1 Tablet(s) PO Q6 PRN TAKE ONE TABLET BY MOUTH EVERY 6 HOURS NEEDED 10/17/2018 01/14/2019 Active hydrocodone 5 mg-linh taminophen 325 mg tablet RxNorm: 443142 1 Tablet(s) PO Q6-8H as needed 10/17/2018 11/10/2018 Inactive metformin 500 mg tablet RxNorm: 704470 Tablet(s) TAKE 1 TABLET BY MOUTH DAILY 10/15/2018 10/09/2019 Ac tive lisinopril 10 mg tablet RxNorm: 007869 TAKE 1 TABLET BY MOUTH TWO TIMES DAILY 10/15/2018 10/09/2019 Ac tive - First Attempt Ref: [id number] testosterone cypiona te 200 mg/mL intramuscular oil RxNorm: 9537076 Milliliter(s) IM 10/14/2018 10/14/2018 In active Xanax 0.5 mg tablet RxNorm: 096385 1 Tablet(s) PO TID 10/03/2018 11/30/2018 Active testosterone cypiona te 200 mg/mL intramuscular oil RxNorm: 0423377 1/2 Milliliter(s) IM weekly 10/03/2018 11/03/2018 Inactive testosterone cypiona te 200 mg/mL intramuscular oil RxNorm: 0317033 Milliliter(s) IM 10/03/2018 10/03/2018 In active testosterone cypiona te 200 mg/mL intramuscular oil RxNorm: 7669061 Milliliter(s) IM 09/23/2018 09/23/2018 In active hydrocodone 5 mg-linh taminophen 325 mg tablet RxNorm: 117102 1 Tablet(s) PO Q6-8H as needed 09/22/2018 10/16/2018 Inactive testosterone cypiona te 200 mg/mL intramuscular oil RxNorm: 6272222 1/2 Milliliter(s) IM 09/02/2018 09/02/2018 Inactive testosterone enantha te 200 mg/mL intramuscular oil RxNorm: 065903 Milliliter(s) IM 08/21/2018 08/21/2018 In active hydrocodone 5 mg-linh taminophen 325 mg tablet RxNorm: 844911 1 Tablet(s) PO Q6-8H as needed 08/21/2018 09/14/2018 Inactive testosterone cypiona te 200 mg/mL intramuscular oil RxNorm: 8147096 Milliliter(s) IM 08/08/2018 08/08/2018 In active testosterone cypiona te 200 mg/mL intramuscular oil RxNorm: 1896332 1/2 Milliliter(s) IM 07/28/2018 07/28/2018 Inactive hydrocodone 5 mg-linh taminophen 325 mg tablet RxNorm: 278468 1 Tablet(s) PO Q6-8H as needed 07/21/2018 08/14/2018 Inactive testosterone cypiona te 200 mg/mL intramuscular oil RxNorm: 595467 Milliliter(s) IM 07/16/2018 07/16/2018 In active testosterone cypiona te 200 mg/mL intramuscular oil RxNorm: 877497 Milliliter(s) IM 07/02/2018 07/02/2018 In active Xanax 0.5 mg tablet RxNorm: 786953 1 Tablet(s) PO TID 06/27/2018 08/24/2018 Inactive testosterone cypiona te 200 mg/mL intramuscular oil RxNorm: 107389 Milliliter(s) IM 06/24/2018 06/24/2018 In active hydrocodone 5 mg-linh taminophen 325 mg tablet RxNorm: 461255 1 Tablet(s) PO Q6-8H as needed 06/23/2018 07/17/2018 Inactive testosterone cypiona te 200 mg/mL intramuscular oil RxNorm: 304787 Milliliter(s) IM 06/13/2018 06/13/2018 In active testosterone cypiona te 200 mg/mL intramuscular oil RxNorm: 950957 Milliliter(s) IM 06/05/2018 06/05/2018 In active testosterone cypiona te 200 mg/mL intramuscular oil RxNorm: 9926267 1/2 Milliliter(s) IM weekly 05/30/2018 09/26/2018 Inactive testosterone cypiona te 200 mg/mL intramuscular oil RxNorm: 361914 Milliliter(s) IM 05/30/2018 05/30/2018 In active testosterone cypiona te 200 mg/mL intramuscular oil RxNorm: 804730 Milliliter(s) IM 05/22/2018 05/22/2018 In active hydrocodone 5 mg-linh taminophen 325 mg tablet RxNorm: 488191 1 Tablet(s) PO Q6-8H as needed 05/20/2018 06/13/2018 Inactive testosterone cypiona te 200 mg/mL intramuscular oil RxNorm: 123223 1/2 Milliliter(s) IM 05/12/2018 05/12/2018 Inactive testosterone cypiona te 200 mg/mL intramuscular oil RxNorm: 770423 Milliliter(s) IM 05/02/2018 05/02/2018 In active testosterone cypiona te 200 mg/mL intramuscular oil RxNorm: 300084 1/2 Milliliter(s) IM weekly 04/24/2018 05/29/2018 Inactive testosterone cypiona te 200 mg/mL intramuscular oil RxNorm: 689620 0.5 Milliliter(s) IM 04/24/2018 04/24/2018 Inactive hydrocodone 5 mg-linh taminophen 325 mg tablet RxNorm: 798474 1 Tablet(s) PO Q6-8H as needed 04/22/2018 05/16/2018 Inactive testosterone cypiona te 200 mg/mL intramuscular oil RxNorm: 976011 1/2 Milliliter(s) IM 04/17/2018 04/17/2018 Inactive testosterone cypiona te 200 mg/mL intramuscular oil RxNorm: 197660 1/2 Milliliter(s) IM weekly 04/16/2018 04/23/2018 Inactive Jardiance 10 mg tablet RxNorm: 1227604 1 Tablet(s) PO daily 04/04/2018 12/29/2018 Active Protonix 40 mg table t,delayed release RxNorm: 031421 1 Tablet(s) PO daily TAKE 1 TABLET BY MOUTH DAILY 04/04/2018 03/29/2019 Active - Ref: [id number] testosterone cypiona te 200 mg/mL intramuscular oil RxNorm: 127991 1 Milliliter(s) IM monthly 04/04/2018 04/15/2018 Inactive hydrocodone 5 mg-linh taminophen 325 mg tablet RxNorm: 328093 1 Tablet(s) PO Q6-8H as needed 03/19/2018 04/12/2018 Inactive Flomax 0.4 mg capsule RxNorm: 189824 1 Capsule(s) PO daily 03/10/2018 03/04/2019 Active Urecholine 25 mg tablet RxNorm: 222757 1 Tablet(s) PO BID 03/10/2018 07/07/2018 Inactive ketorolac 60 mg/2 mL intramuscular solution RxNorm: 3446028 Milliliter(s) IM 03/07/2018 03/07/2018 In active metformin 500 mg tablet RxNorm: 436100 Tablet(s) TAKE 1 TABLET BY MOUTH DAILY 02/20/2018 02/13/2019 Ac tive 1 q am and 1/2 tab q pm hydrocodone 5 mg-linh taminophen 325 mg tablet RxNorm: 201352 1 Tablet(s) PO Q6-8H as needed 02/20/2018 03/16/2018 Inactive Kenalog 40 mg/mL bartolome pension for injection RxNorm: 2860969 1.5 Milliliter(s) In j 01/30/2018 01/30/2018 In active hydrocodone 5 mg-linh taminophen 325 mg tablet RxNorm: 527274 1 Tablet(s) PO Q6-8H as needed 01/23/2018 02/16/2018 Inactive Urecholine 25 mg tablet RxNorm: 055165 1 Tablet(s) PO BID 01/22/2018 03/09/2018 Inactive Flomax 0.4 mg capsule RxNorm: 174904 1 Capsule(s) PO daily 01/22/2018 03/09/2018 Inactive Flomax 0.4 mg capsule RxNorm: 497486 1 Capsule(s) PO daily 01/22/2018 01/21/2018 Inactive Urecholine 25 mg tablet RxNorm: 653417 1 Tablet(s) PO BID 01/22/2018 01/21/2018 Inactive testosterone cypiona te 200 mg/mL intramuscular oil RxNorm: 361682 Milliliter(s) IM 01/17/2018 01/17/2018 In active testosterone cypiona te 200 mg/mL intramuscular oil RxNorm: 431537 1 Milliliter(s) IM monthly 01/17/2018 04/03/2018 Inactive doxycycline hyclate 100 mg tablet RxNorm: 650216 1 Tablet(s) PO BID 01/14/2018 01/23/2018 Inactive lisinopril 10 mg tablet RxNorm: 901262 TAKE 1 TABLET BY MOUTH TWO TIMES DAILY 01/14/2018 10/14/2018 In active - First Attempt Ref: [id number] Xanax 0.5 mg tablet RxNorm: 161421 1 Tablet(s) PO TID 01/08/2018 04/06/2018 Inactive nystatin 100,000 uni t/mL oral suspension RxNorm: 596380 4 Milliliter(s) PO QI D Swish and swallow 01/08/2018 01/07/2018 Inactive nystatin 100,000 uni t/mL oral suspension RxNorm: 277588 4 Milliliter(s) PO QI D Swish and swallow 01/08/2018 01/12/2018 Inactive simvastatin 40 mg ta blet RxNorm: 777890 TAKE 1 TABLET BY MOUT H DAILY AT BEDTIME 12/30/2017 12/24/2018 Ac tive - First Attempt Ref: [id number] metformin 500 mg tablet RxNorm: 114833 TAKE 1 TABLET BY MOUTH DAILY 12/30/2017 02/19/2018 Inactive - First Attempt Ref: [id number] hydrocodone 5 mg-linh taminophen 325 mg tablet RxNorm: 540173 1 Tablet(s) PO Q6-8H as needed 12/25/2017 01/18/2018 Inactive Protonix 40 mg table t,delayed release RxNorm: 029613 Tablet(s) TAKE 1 TABL ET BY MOUTH DAILY 11/20/2017 04/03/2018 Inactive - Ref: [id number] Linzess 72 mcg capsule RxNorm: 4709312 1 Capsule(s) PO daily 11/19/2017 No Stop Date Active hydrocodone 5 mg-linh taminophen 325 mg tablet RxNorm: 501470 1 Tablet(s) PO Q6-8H as needed 11/19/2017 12/13/2017 Inactive hydrocodone 5 mg-linh taminophen 325 mg tablet RxNorm: 007577 1 Tablet(s) PO Q6-8H as needed 10/28/2017 11/18/2017 Inactive Xanax 0.5 mg tablet RxNorm: 002320 1 Tablet(s) PO TID 10/25/2017 12/22/2017 Inactive Xanax 0.5 mg tablet RxNorm: 861044 TAKE ONE TABLET BY MOUTH THREE TIMES A D AY 10/24/2017 12/22/2017 In active hydrocodone 5 mg-linh taminophen 325 mg tablet RxNorm: 941641 1 Tablet(s) PO Q6-8H as needed 09/30/2017 10/24/2017 Inactive Protonix 40 mg table t,delayed release RxNorm: 592796 TAKE 1 TABLET BY MOUT H DAILY 09/16/2017 11/19/2017 In active - Ref: [id number] Toujeo SoloStar 300 unit/mL (1.5 mL) subcutaneous insulin pen RxNorm: 2797690 35 Unit(s) SQ QHS 08/30/2017 No Stop Date Active dosage increase hydrocodone 5 mg-linh taminophen 325 mg tablet RxNorm: 030134 1 Tablet(s) PO Q6-8H as needed 08/28/2017 09/29/2017 Inactive hydrocodone 5 mg-linh taminophen 325 mg tablet RxNorm: 485182 1 Tablet(s) PO Q6-8H as needed 07/23/2017 08/24/2017 Inactive lisinopril 10 mg tablet RxNorm: 888068 1 Tablet(s) PO BID Take 1 tablet by mout h daily 07/23/2017 01/13/2018 Inactive hydrocodone 5 mg-linh taminophen 325 mg tablet RxNorm: 010628 1 Tablet(s) PO Q6-8H as needed 06/27/2017 07/22/2017 Inactive Xanax 0.5 mg tablet RxNorm: 644237 1 Tablet(s) PO TID 06/18/2017 10/25/2017 Inactive hydrocodone 5 mg-linh taminophen 325 mg tablet RxNorm: 369918 1 Tablet(s) PO Q6-8H as needed 05/27/2017 06/26/2017 Inactive Levaquin 500 mg tablet RxNorm: 736017 1 Tablet(s) PO daily 05/24/2017 05/23/2017 Inactive Levaquin 500 mg tablet RxNorm: 785960 1 Tablet(s) PO daily 05/24/2017 05/30/2017 Inactive Protonix 40 mg table t,delayed release RxNorm: 221759 Take 1 tablet by mout h daily 04/29/2017 09/15/2017 In active - Ref: [id number] hydrocodone 5 mg-linh taminophen 325 mg tablet RxNorm: 256998 1 Tablet(s) PO Q6-8H as needed 04/25/2017 05/26/2017 Inactive metformin 500 mg tablet RxNorm: 394066 Take 1 tablet by mouth daily 04/08/2017 12/29/2017 Inactive - First Attempt Ref: [id number] hydrocodone 5 mg-linh taminophen 325 mg tablet RxNorm: 721803 1 Tablet(s) PO Q6-8H as needed 03/27/2017 04/24/2017 Inactive hydrocodone 5 mg-linh taminophen 325 mg tablet RxNorm: 941072 1 Tablet(s) PO Q6-8H as needed 02/25/2017 03/26/2017 Inactive Protonix 40 mg table t,delayed release RxNorm: 244426 Tablet(s) Take 1 tabl et by mouth BID 02/25/2017 04/28/2017 Inactive Protonix 40 mg table t,delayed release RxNorm: 352021 Tablet(s) Take 1 tabl et by mouth BID 02/19/2017 02/18/2017 Inactive Protonix 40 mg table t,delayed release RxNorm: 710873 Tablet(s) Take 1 tabl et by mouth BID 02/19/2017 02/24/2017 Inactive lisinopril 10 mg tablet RxNorm: 871955 Take 1 tablet by mouth daily 01/29/2017 07/22/2017 Inactive - First Attempt Ref: [id number] hydrocodone 5 mg-linh taminophen 325 mg tablet RxNorm: 676032 1 Tablet(s) PO Q6-8H as needed 01/25/2017 02/24/2017 Inactive simvastatin 40 mg ta blet RxNorm: 754696 Tablet(s) Take 1 tabl et by mouth daily at bedtime 01/03/2017 12/28/2017 Inactive lisinopril 10 mg tablet RxNorm: 405238 Tablet(s) Take 1 tablet by mouth daily 01/03/2017 01/28/2017 In active Protonix 40 mg table t,delayed release RxNorm: 089760 Tablet(s) Take 1 tabl et by mouth daily 12/28/2016 02/18/2017 Inactive hydrocodone 5 mg-linh taminophen 325 mg tablet RxNorm: 462009 1 Tablet(s) PO Q6-8H as needed 12/26/2016 01/24/2017 Inactive Xanax 0.5 mg tablet RxNorm: 714328 1 Tablet(s) PO TID 12/12/2016 03/11/2017 Inactive simvastatin 40 mg ta blet RxNorm: 275366 Tablet(s) Take 1 tabl et by mouth daily at bedtime 11/30/2016 01/02/2017 Inactive simvastatin 40 mg ta blet RxNorm: 593677 Take 1 tablet by mout h daily at bedtime 11/29/2016 11/29/2016 In active - First Attempt Ref: [id number] Protonix 40 mg table t,delayed release RxNorm: 748781 Take 1 tablet by mout h daily 11/27/2016 12/27/2016 In active - First Attempt Ref: [id number] hydrocodone 5 mg-linh taminophen 325 mg tablet RxNorm: 755084 1 Tablet(s) PO Q6-8H as needed 11/26/2016 12/25/2016 Inactive hydrocodone 5 mg-linh taminophen 325 mg tablet RxNorm: 075490 1 Tablet(s) PO Q8 as needed 10/24/2016 11/25/2016 Inactive Xanax 0.5 mg tablet RxNorm: 047562 1 Tablet(s) PO TID 10/09/2016 12/25/2016 Inactive hydrocodone 5 mg-linh taminophen 325 mg tablet RxNorm: 462113 1 Tablet(s) PO Q8 as needed 09/27/2016 10/23/2016 Inactive lisinopril 10 mg tablet RxNorm: 734533 Take 1 tablet by mouth daily 09/25/2016 01/02/2017 Inactive - First Attempt Ref: [id number] Vitamin D2 50,000 un it capsule RxNorm: 049267 1 Capsule(s) PO QW 09/06/2016 No Stop Date Active hydrocodone 5 mg-linh taminophen 325 mg tablet RxNorm: 277564 1 Tablet(s) PO Q8 as needed 08/28/2016 09/26/2016 Inactive Toujeo SoloStar 300 unit/mL (1.5 mL) subcutaneous insulin pen RxNorm: 5062899 25 Unit(s) SQ QHS 08/23/2016 08/29/2017 Inactive dosage increase hydrocodone 5 mg-linh taminophen 325 mg tablet RxNorm: 527841 1 Tablet(s) PO Q8 as needed 07/26/2016 08/27/2016 Inactive Protonix 40 mg table t,delayed release RxNorm: 281049 Take 1 tablet by mout h daily 07/24/2016 11/26/2016 In active - First Attempt Ref: [id number] hydrocodone 5 mg-linh taminophen 325 mg tablet RxNorm: 697988 1 Tablet(s) PO Q8 as needed 06/19/2016 07/21/2016 Inactive Toujeo SoloStar 300 unit/mL (1.5 mL) subcutaneous insulin pen RxNorm: 8070758 32 Unit(s) SQ QHS 05/30/2016 08/22/2016 Inactive dosage increase hydrocodone 5 mg-linh taminophen 325 mg tablet RxNorm: 841139 1 Tablet(s) PO Q8 as needed 05/22/2016 06/18/2016 Inactive hydrocodone 5 mg-linh taminophen 325 mg tablet RxNorm: 795925 1 Tablet(s) PO Q8 as needed 04/18/2016 05/17/2016 Inactive Protonix 40 mg table t,delayed release RxNorm: 068602 Take 1 tablet by mout h daily 04/05/2016 07/03/2016 In active - Ref: [id number] metformin 500 mg tablet RxNorm: 478514 Take 1 tablet by mouth daily 04/04/2016 07/02/2016 Inactive - Ref: [id number] Xanax 0.5 mg tablet RxNorm: 843280 1 Tablet(s) PO TID 03/30/2016 09/25/2016 Inactive Xanax 0.5 mg tablet RxNorm: 562344 1 Tablet(s) PO TID 03/23/2016 12/25/2016 Inactive hydrocodone 5 mg-linh taminophen 325 mg tablet RxNorm: 303211 1 Tablet(s) PO Q8 as needed 03/06/2016 04/04/2016 Inactive Cipro 500 mg tablet RxNorm: 500440 1 Tablet(s) PO BID 02/24/2016 03/04/2016 Inactive Miralax 17 gram oral powder packet RxNorm: 047635 1 packet PO every oth er day 01/27/2016 No Stop Date Active hydrocodone 5 mg-linh taminophen 325 mg tablet RxNorm: 824940 1 Tablet(s) PO Q8 as needed 01/27/2016 02/25/2016 Inactive lisinopril 10 mg tablet RxNorm: 446251 1 Tablet(s) PO daily 01/12/2016 09/24/2016 Inactive simvastatin 40 mg ta blet RxNorm: 889634 1 Tablet(s) PO QHS 01/12/2016 11/28/2016 Inactive simvastatin 40 mg ta blet RxNorm: 284084 1 Tablet(s) PO QHS 01/11/2016 01/11/2016 Inactive lisinopril 10 mg tablet RxNorm: 196763 1 Tablet(s) PO daily 01/06/2016 01/11/2016 Inactive simvastatin 40 mg ta blet RxNorm: 099968 1 Tablet(s) PO daily 12/28/2015 01/10/2016 Inactive hydrocodone 5 mg-linh taminophen 325 mg tablet RxNorm: 095112 1 Tablet(s) PO Q8 as needed 12/27/2015 01/26/2016 Inactive Xanax 0.5 mg tablet RxNorm: 736120 1 Tablet(s) PO TID 11/30/2015 03/29/2016 Inactive Toujeo SoloStar 300 unit/mL (1.5 mL) subcutaneous insulin pen RxNorm: 0676139 30 Unit(s) SQ QHS 11/25/2015 05/29/2016 Inactive dosage increase meclizine 25 mg tablet RxNorm: 304437 1 Tablet(s) PO Q6 PRN TAKE ONE TABLET BY MOUTH EVERY 6 HOURS NEEDED 11/25/2015 02/22/2016 Inactive omeprazole 20 mg cap jacquelyn,delayed release RxNorm: 302461 1 Capsule(s) PO daily 10/06/2015 01/26/2016 In active Touanuj SoloStar 300 unit/mL (1.5 mL) subcutaneous insulin pen RxNorm: 8160224 35 Unit(s) SQ QHS 08/02/2015 11/24/2015 Inactive dosage increase Vitamin D2 50,000 un it capsule RxNorm: 204064 1 Capsule(s) PO QW 08/02/2015 09/05/2016 Inactive hydrocodone 5 mg-linh taminophen 325 mg tablet RxNorm: 179058 1 Tablet(s) PO Q8 as needed 07/11/2015 12/26/2015 Inactive Xanax 0.5 mg tablet RxNorm: 863415 1 Tablet(s) PO TID 06/30/2015 06/29/2015 Inactive Xanax 0.5 mg tablet RxNorm: 806923 1 Tablet(s) PO TID 06/30/2015 12/25/2015 Inactive hydrocodone 5 mg-linh taminophen 325 mg tablet RxNorm: 798119 1 Tablet(s) PO Q8 as needed 05/06/2015 07/10/2015 Inactive Symbicort 160 mcg-4. 5 mcg/actuation HFA aerosol inhaler RxNorm: 5107859 INH 04/25/2015 No Stop Date Active Levemir FlexTouch 10 0 unit/mL (3 mL) subcutaneous insulin pen RxNorm: 729201 30 Unit(s) SQ QHS 04/25/2015 11/24/2015 Inactive prednisone 20 mg tablet RxNorm: 675496 1 Tablet(s) PO BID 04/25/2015 04/29/2015 Inactive metformin 500 mg tablet RxNorm: 119514 1 Tablet(s) PO daily 04/25/2015 04/03/2016 Inactive amoxicillin 500 mg c apsule RxNorm: 840535 1 Capsule(s) PO TID 04/14/2015 04/13/2015 Inactive amoxicillin 500 mg c apsule RxNorm: 524505 1 Capsule(s) PO TID a nd recommend probiotic tid (otc) 04/14/2015 04/20/2015 Inactive Kenalog 40 mg/mL bartolome pension for injection RxNorm: 4288188 Milliliter(s) Inj 04/12/2015 04/12/2015 In active hydrocodone 5 mg-linh taminophen 325 mg tablet RxNorm: 778545 1 Tablet(s) PO Q8 as needed 03/30/2015 05/05/2015 Inactive Lantus 100 unit/mL s ubcutaneous solution RxNorm: 848542 25 Unit(s) SQ QPM 03/24/2015 04/25/2015 In active meclizine 25 mg tablet RxNorm: 748638 Tablet(s) TAKE ONE TABLET BY MOUTH EVERY 6 HOURS NEEDED 03/08/2015 04/06/2015 Inactive meclizine 25 mg tablet RxNorm: 529783 TAKE ONE TABLET BY MOUTH EVERY 6 HOURS A S NEEDED 02/25/2015 03/03/2015 Inactive Lantus 100 unit/mL s ubcutaneous solution RxNorm: 316172 20 Unit(s) SQ QPM 02/23/2015 03/23/2015 In active Lantus 100 unit/mL s ubcutaneous solution RxNorm: 514970 25 Unit(s) SQ QPM 02/23/2015 02/22/2015 In active hydrocodone 5 mg-linh taminophen 325 mg tablet RxNorm: 540905 1 Tablet(s) PO Q8 as needed 02/17/2015 03/29/2015 Inactive Xanax 0.5 mg tablet RxNorm: 587788 1 Tablet(s) PO TID 02/03/2015 06/29/2015 Inactive Lantus 100 unit/mL s ubcutaneous solution RxNorm: 380343 20 Unit(s) SQ QPM 12/29/2014 02/22/2015 In active Phenergan 12.5 mg re ctal suppository RxNorm: 010152 1 Suppository RTL Q6 PRN 12/23/2014 No Stop Date Active nausea Kenalog 40 mg/mL bartolome pension for injection RxNorm: 6190581 Milliliter(s) Inj 12/23/2014 12/23/2014 In active prednisone 20 mg tablet RxNorm: 390786 2 Tablet(s) PO daily 12/13/2014 12/17/2014 Inactive prednisone 20 mg tablet RxNorm: 489763 2 Tablet(s) PO daily 12/13/2014 12/12/2014 Inactive meclizine 25 mg tablet RxNorm: 348370 1 Tablet(s) PO Q6 PRN 12/09/2014 02/24/2015 Inactive hydrocodone 5 mg-linh taminophen 325 mg tablet RxNorm: 262675 1 Tablet(s) PO Q8 as needed 12/09/2014 02/16/2015 Inactive Vitamin B-12 1,000 m cg/mL oral drops RxNorm: 5608813 1 Milliliter(s) PO d aily No Start Date Active Alphagan P 0.1 % eye drops RxNorm: 519890 1 Drop(s) OPH BID No Start Date Active aspirin 325 mg table t,delayed release RxNorm: 379607 1 Tablet(s) PO daily No Start Date Active Tricor 145 mg tablet RxNorm: 896941 1 Tablet(s) PO daily No Start Date Active vitamin [id number] B1 oral liquid RxNorm: 1,000 Microgram(s) PO daily No Start Date Active atenolol 50 mg tablet RxNorm: 756834 1 Tablet(s) PO daily No Start Date Active Protonix 40 mg table t,delayed release RxNorm: 743603 1 Tablet(s) PO daily No Start Date 04/04/2016 Inactive glipizide 10 mg tablet RxNorm: 629784 1 Tablet(s) PO BID No Start Date 03/22/2015 Inactive Lantus 100 unit/mL s ubcutaneous solution RxNorm: 637737 15 Unit(s) SQ QPM No Start Date 12/28/2014 Inactive lisinopril 10 mg tablet RxNorm: 977439 1 Tablet(s) PO daily No Start Date 01/05/2016 Inactive Vitamin D2 50,000 un it capsule RxNorm: 531572 1 Capsule(s) PO QW No Start Date 08/01/2015 Inactive Toujeo SoloStar 300 unit/mL (1.5 mL) subcutaneous insulin pen RxNorm: 9113696 30 Unit(s) SQ QHS No Start Date 08/01/2015 Inactive simvastatin 40 mg ta blet RxNorm: 882710 1 Tablet(s) PO daily No Start Date 12/27/2015 Inactive testosterone cypiona te 200 mg/mL intramuscular oil RxNorm: 378764 1 Milliliter(s) IM monthly No Start Date 01/16/2018 Inactive hydrocodone 5 mg-linh taminophen 325 mg tablet RxNorm: 803592 1 Tablet(s) PO Q8 as needed No Start Date 12/08/2014 Inactive metformin 500 mg tablet RxNorm: 571627 1 Tablet(s) PO daily No Start Date 04/24/2015 Inactive omeprazole 20 mg cap jacquelyn,delayed release RxNorm: 688733 1 Capsule(s) PO daily No Start Date 10/05/2015 Inactive Flomax 0.4 mg capsule RxNorm: 798357 1 Capsule(s) PO daily No Start Date 03/23/2015 Inactive Medication Administered Medication Codes Instruc tions Start Date Status testosterone cypionate 200 mg/mL intramuscular oil RxNorm: 9347665 Milliliter 11/18/2018 Active testosterone cypionate 200 mg/mL intramuscular oil RxNorm: 5324125 Milliliter 11/04/2018 No longer Active testosterone cypionate 200 mg/mL intramuscular oil RxNorm: 8100088 Milliliter 10/14/2018 No longer Active testosterone cypionate 200 mg/mL intramuscular oil RxNorm: 1714538 Milliliter 10/03/2018 No longer Active testosterone cypionate 200 mg/mL intramuscular oil RxNorm: 1291417 Milliliter 09/23/2018 No longer Active testosterone cypionate 200 mg/mL intramuscular oil RxNorm: 0620233 1/2Milliliter 09/02/2018 No longer Active testosterone enanthate 200 mg/mL intramuscular oil RxNorm: 985817 Milliliter 08/21/2018 No longer Active testosterone cypionate 200 mg/mL intramuscular oil RxNorm: 5031366 Milliliter 08/08/2018 No longer Active testosterone cypionate 200 mg/mL intramuscular oil RxNorm: 0455118 1/2Milliliter 07/28/2018 No longer Active testosterone cypionate 200 mg/mL intramuscular oil RxNorm: 665305 Milliliter 07/16/2018 No longer Active testosterone cypionate 200 mg/mL intramuscular oil RxNorm: 758103 Milliliter 07/02/2018 No longer Active testosterone cypionate 200 mg/mL intramuscular oil RxNorm: 013037 Milliliter 06/24/2018 No longer Active testosterone cypionate 200 mg/mL intramuscular oil RxNorm: 457889 Milliliter 06/13/2018 No longer Active testosterone cypionate 200 mg/mL intramuscular oil RxNorm: 019250 Milliliter 06/05/2018 No longer Active testosterone cypionate 200 mg/mL intramuscular oil RxNorm: 644539 Milliliter 05/30/2018 No longer Active testosterone cypionate 200 mg/mL intramuscular oil RxNorm: 644185 Milliliter 05/22/2018 No longer Active testosterone cypionate 200 mg/mL intramuscular oil RxNorm: 179346 1/2Milliliter 05/12/2018 No longer Active testosterone cypionate 200 mg/mL intramuscular oil RxNorm: 085683 Milliliter 05/02/2018 No longer Active testosterone cypionate 200 mg/mL intramuscular oil RxNorm: 273575 0.5Milliliter 04/24/2018 No longer Active testosterone cypionate 200 mg/mL intramuscular oil RxNorm: 168105 1/2Milliliter 04/17/2018 No longer Active ketorolac 60 mg/2 mL intramuscular solution RxNorm: 6742383 Milliliter 03/07/2018 No longer Active Kenalog 40 mg/mL suspension for injection RxNorm: 3122508 1.5Milliliter 01/30/2018 No longer Active testosterone cypionate 200 mg/mL intramuscular oil RxNorm: 489729 Milliliter 01/17/2018 No longer Active Kenalog 40 mg/mL suspension for injection RxNorm: 0141933 Milliliter 04/12/2015 No longer Active Kenalog 40 mg/mL suspension for injection RxNorm: [id number] Milliliter 12/23/2014 No longer Active Immunizations Vaccine [...] Observation Code Item Item Code Result Date Testosterone Fmd847 Testo 669.0 ng/dL 09/08/2018 %Hba1C Sut387 % HbA1c 09285-1 7.4 % 09/08/2018 %Hba1C Fsf403 Gluc Ave 166 mg/dL 09/08/2018 Lipid Ord30 CHOL 114 mg/dL 09/08/2018 Lipid Ord30 HDL 28.0 mg/dl 09/08/2018 Lipid Ord30 TRIG 154 mg/dL 09/08/2018 Lipid Ord30 LDL 55 mg/dL 09/08/2018 Lipid Ord30 C/HDL 4.1 Ratio 09/08/2018 Comp Metabolic Hae106 NA 137 mEq/L 09/08/2018 Comp Metabolic Xnp980 K 4.3 mEq/L 09/08/2018 Comp Metabolic Had172 CL 100 mEq/L 09/08/2018 Comp Metabolic Xcx944 CO2 27.0 mEq/L 09/08/2018 Comp Metabolic Stt010 AN ION GAP 14 09/08/2018 Comp Metabolic Olq343 GL UCOSE 85 mg/dL 09/08/2018 Comp Metabolic Ors704 Cr eat 1.1 mg/dL 09/08/2018 Comp Metabolic Hat082 eG FR 70 ml/min/1.73m2 09/08 Comp Metabolic Ctr985 BUN 11 mg/dL 09/08/2018 Comp Metabolic Vmj649 B/ C Ratio 10.3 Ratio 09/08/2018 Comp Metabolic Zda040 CA LCIUM 9.2 mg/dL 09/08/2018 Comp Metabolic Wjl217 AL K PHOS 65 U/L 09/08/2018 Comp Metabolic Tqf116 T(SGOT) 16 U/L 09/08/2018 Comp Metabolic Ibe378 AL T(SGPT) 14 U/L 09/08/2018 Comp Metabolic Dfo046 BI LI T 0.6 mg/dL 09/08/2018 Comp Metabolic Ait065 AL BUMIN 4.0 g/dL 09/08/2018 Comp Metabolic Jzn639 TP RO 6.6 g/dL 09/08/2018 Comp Metabolic Toq061 GL OB 2.6 g/dL 09/08/2018 Comp Metabolic Ppk491 A/ G Ratio 1.6 Ratio 09/08/2018 Comp Metabolic Opr371 Os mo 272 mOsmo 09/08/2018 Vitamin D 25 Oh Xvu8241 VITAMIN D, 25 HYDROXY 37.17 ng/mL 09/08/2018 [...] 33.3 pg 09/08/2018 Cbc With Differential Ord2 [place]% 8.1 % 09/08/2018 Cbc With Differential Ord2 [...] 2.44 K/ul 09/08/2018 Cbc With Differential Ord2 [place] ABS# 0.6 K/ul 09/08/2018 Cbc With Differential Ord2 Eos ABS# 0.3 K/ul 09/08/2018 Cbc With Differential Ord2 Baso ABS# 0.0 K/ul 09/08/2018 Tsh Ord6 TSH (3rd IS) 2.72 uIU/mL 09/08/2018 Comp Metabolic Sij271 NA 139 mEq/L 04/01/2018 Comp Metabolic Bhf392 K 4.2 mEq/L 04/01/2018 Comp Metabolic Iva362 CL 102 mEq/L 04/01/2018 Comp Metabolic Ukb665 CO2 29.0 mEq/L 04/01/2018 Comp Metabolic Tqd958 AN ION GAP 12 04/01/2018 Comp Metabolic Yhy914 GL UCOSE 87 mg/dL 04/01/2018 Comp Metabolic Amv691 Cr eat 1.1 mg/dL 04/01/2018 Comp Metabolic Vym048 eG FR 70 ml/min/1.73m2 04/01 Comp Metabolic Mey086 BUN 21 mg/dL 04/01/2018 Comp Metabolic Heo673 B/ C Ratio 19.4 Ratio 04/01/2018 Comp Metabolic Jfv681 CA LCIUM 9.1 mg/dL 04/01/2018 Comp Metabolic Uzv187 AL K PHOS 60 U/L 04/01/2018 Comp Metabolic Erl669 T(SGOT) 15 U/L 04/01/2018 Comp Metabolic Kat171 AL T(SGPT) 18 U/L 04/01/2018 Comp Metabolic Npc778 BI LI T 0.4 mg/dL 04/01/2018 Comp Metabolic Ges006 AL BUMIN 4.0 g/dL 04/01/2018 Comp Metabolic Bwe741 TP RO 6.5 g/dL 04/01/2018 Comp Metabolic Wks691 GL OB 2.5 g/dL 04/01/2018 Comp Metabolic Fsf796 A/ G Ratio 1.6 Ratio 04/01/2018 Comp Metabolic Iyg329 Os mo 280 mOsmo 04/01/2018 Lipid Ord30 [...] 34.3 pg 04/01/2018 Cbc With Differential Ord2 [place]% 6.0 % 04/01/2018 Cbc With Differential Ord2 [...] 3.25 K/ul 04/01/2018 Cbc With Differential Ord2 [place] ABS# 0.6 K/ul 04/01/2018 Cbc With Differential Ord2 Eos ABS# 0.4 K/ul 04/01/2018 Cbc With Differential Ord2 Baso ABS# 0.0 K/ul 04/01/2018 %Hba1C Gop177 % HbA1c 29414-5 8.0 % 04/01/2018 %Hba1C Caj999 Gluc Ave 183 mg/dL 04/01/2018 Testosterone Rnb730 Testo 111.3 ng/dL 04/01/2018 Testosterone Wqc203 Testo 135.4 ng/dL 01/14/2018 Cbc With Differential [...] 36.0 pg 01/14/2018 Cbc With Differential Ord2 [place]% 6.8 % 01/14/2018 Cbc With Differential Ord2 [...] 2.71 K/ul 01/14/2018 Cbc With Differential Ord2 [place] ABS# 0.8 K/ul 01/14/2018 Cbc With Differential Ord2 Eos ABS# 0.2 K/ul 01/14/2018 Cbc With Differential Ord2 Baso ABS# 0.0 K/ul 01/14/2018 Comp Metabolic Ikc574 NA 134 mEq/L 11/20/2017 Comp Metabolic Bhj995 K 4.4 mEq/L 11/20/2017 Comp Metabolic Olx222 CL 99 mEq/L 11/20/2017 Comp Metabolic Vlj874 CO2 29.0 mEq/L 11/20/2017 Comp Metabolic Ynq730 AN ION GAP 10 11/20/2017 Comp Metabolic Grm254 GL UCOSE 218 mg/dL 11/20/2017 Comp Metabolic Roq347 Cr eat 1.0 mg/dL 11/20/2017 Comp Metabolic Wau540 eG FR 78 ml/min/1.73m2 11/20 Comp Metabolic Rgc571 BUN 13 mg/dL 11/20/2017 Comp Metabolic Oje192 B/ C Ratio 13.3 Ratio 11/20/2017 Comp Metabolic Kgn579 CA LCIUM 9.0 mg/dL 11/20/2017 Comp Metabolic Kxi531 AL K PHOS 71 U/L 11/20/2017 Comp Metabolic Juh587 T(SGOT) 18 U/L 11/20/2017 Comp Metabolic Xph780 AL T(SGPT) 17 U/L 11/20/2017 Comp Metabolic Fws784 BI LI T 0.4 mg/dL 11/20/2017 Comp Metabolic Hbg054 AL BUMIN 4.1 g/dL 11/20/2017 Comp Metabolic Anq941 TP RO 6.5 g/dL 11/20/2017 Comp Metabolic Fto776 GL OB 2.4 g/dL 11/20/2017 Comp Metabolic Ilh107 A/ G Ratio 1.8 Ratio 11/20/2017 Comp Metabolic Eqt672 Os mo 275 mOsmo 11/20/2017 Cbc With [...] 35.2 pg 11/20/2017 Cbc With Differential Ord2 [place]% 7.2 % 11/20/2017 Cbc With Differential Ord2 [...] 3.34 K/ul 11/20/2017 Cbc With Differential Ord2 [place] ABS# 0.6 K/ul 11/20/2017 Cbc With Differential Ord2 Eos ABS# 0.3 K/ul 11/20/2017 Cbc With Differential Ord2 Baso ABS# 0.0 K/ul 11/20/2017 Vitamin D 25 Oh Akl9374 VITAMIN D, 25 HYDROXY 43.72 ng/mL 11/20/2017 %Hba1C Ikn295 % HbA1c 67441-5 7.4 % 11/20/2017 %Hba1C Nmm540 Gluc Ave 166 mg/dL 11/20/2017 %Hba1C Qta391 % HbA1c 81136-6 7.2 % 08/20/2017 %Hba1C Rsb393 Gluc Ave 160 mg/dL 08/20/2017 Lipid Ord30 [...] 34.7 pg 08/20/2017 Cbc With Differential Ord2 [place]% 7.6 % 08/20/2017 Cbc With Differential Ord2 [...] 2.42 K/ul 08/20/2017 Cbc With Differential Ord2 [place] ABS# 0.6 K/ul 08/20/2017 Cbc With Differential Ord2 Eos ABS# 0.3 K/ul 08/20/2017 Cbc With Differential Ord2 Baso ABS# 0.0 K/ul 08/20/2017 Tsh Ord6 hTSH II 2.27 uIU/mL 08/20/2017 Comp Metabolic Jjn446 NA 138 mEq/L 08/20/2017 Comp Metabolic Mjx040 K 4.3 mEq/L 08/20/2017 Comp Metabolic Xww801 CL 102 mEq/L 08/20/2017 Comp Metabolic Hex986 CO2 29.0 mEq/L 08/20/2017 Comp Metabolic Pjh621 AN ION GAP 11 08/20/2017 Comp Metabolic Gji914 GL UCOSE 89 mg/dL 08/20/2017 Comp Metabolic Qoh421 Cr eat 1.0 mg/dL 08/20/2017 Comp Metabolic Zac641 eG FR 80 ml/min/1.73m2 08/20 Comp Metabolic Jpu833 BUN 13 mg/dL 08/20/2017 Comp Metabolic Oen328 B/ C Ratio 13.5 Ratio 08/20/2017 Comp Metabolic Lbe979 CA LCIUM 9.2 mg/dL 08/20/2017 Comp Metabolic Kcz657 AL K PHOS 69 U/L 08/20/2017 Comp Metabolic Uth985 T(SGOT) 18 U/L 08/20/2017 Comp Metabolic Alf757 AL T(SGPT) 19 U/L 08/20/2017 Comp Metabolic Oup111 BI LI T 0.6 mg/dL 08/20/2017 Comp Metabolic Jbe422 AL BUMIN 4.0 g/dL 08/20/2017 Comp Metabolic Kmd059 TP RO 6.6 g/dL 08/20/2017 Comp Metabolic Jzm297 GL OB 2.6 g/dL 08/20/2017 Comp Metabolic Tae181 A/ G Ratio 1.5 Ratio 08/20/2017 Comp Metabolic Yyi657 Os mo 275 mOsmo 08/20/2017 Vitamin D 25 Oh Yhn8951 VITAMIN D, 25 HYDROXY 30.96 ng/mL 08/20/2017 B12 Tcn162 B12 >1500.00 pg/ml 02/22/2017 Cbc With Differential [...] 35.7 pg 02/20/2017 Cbc With Differential Ord2 [place]% 6.3 % 02/20/2017 Cbc With Differential Ord2 [...] 3.19 K/ul 02/20/2017 Cbc With Differential Ord2 [place] ABS# 0.5 K/ul 02/20/2017 Cbc With Differential Ord2 Eos ABS# 0.4 K/ul 02/20/2017 Cbc With Differential Ord2 Baso ABS# 0.0 K/ul 02/20/2017 Comp Metabolic Izb313 NA 138 mEq/L 02/20/2017 Comp Metabolic Gfg307 K 4.5 mEq/L 02/20/2017 Comp Metabolic Ruf296 CL 101 mEq/L 02/20/2017 Comp Metabolic Spi033 CO2 31.0 mEq/L 02/20/2017 Comp Metabolic Ggc130 AN ION GAP 11 02/20/2017 Comp Metabolic Luf371 GL UCOSE 120 mg/dL 02/20/2017 Comp Metabolic Vcl969 Cr eat 0.9 mg/dL 02/20/2017 Comp Metabolic Oxp734 eG FR 83 ml/min/1.73m2 02/20 Comp Metabolic Flw313 BUN 15 mg/dL 02/20/2017 Comp Metabolic Esk077 B/ C Ratio 16.1 Ratio 02/20/2017 Comp Metabolic Bsq624 CA LCIUM 9.1 mg/dL 02/20/2017 Comp Metabolic Ygg426 AL K PHOS 67 U/L 02/20/2017 Comp Metabolic Avn703 T(SGOT) 15 U/L 02/20/2017 Comp Metabolic Ghu473 AL T(SGPT) 16 U/L 02/20/2017 Comp Metabolic Ycz299 BI LI T 0.5 mg/dL 02/20/2017 Comp Metabolic Xga986 AL BUMIN 4.0 g/dL 02/20/2017 Comp Metabolic Pve530 TP RO 6.4 g/dL 02/20/2017 Comp Metabolic Xde989 GL OB 2.4 g/dL 02/20/2017 Comp Metabolic Hrq175 A/ G Ratio 1.7 Ratio 02/20/2017 Comp Metabolic Oka287 Os mo 278 mOsmo 02/20/2017 Tsh Ord6 hTSH II 2.05 uIU/mL 02/20/2017 %Hba1C Zaq037 % HbA1c 04332-2 7.6 % 02/20/2017 %Hba1C Nju149 Gluc Ave 171 mg/dL 02/20/2017 Vitamin D 25 Oh Xip0063 VITAMIN D, 25 HYDROXY 44.40 ng/mL 12/21/2016 Comp Metabolic Zvp447 NA 131 mEq/L 12/21/2016 Comp Metabolic Ast772 K 4.2 mEq/L 12/21/2016 Comp Metabolic Kdh608 CL 97 mEq/L 12/21/2016 Comp Metabolic Ult319 CO2 27.0 mEq/L 12/21/2016 Comp Metabolic Jvk973 AN ION GAP 11 12/21/2016 Comp Metabolic Zwi730 GL UCOSE 266 mg/dL 12/21/2016 Comp Metabolic Enf542 Cr eat 0.9 mg/dL 12/21/2016 Comp Metabolic Xdg016 eG FR 88 ml/min/1.73m2 12/21 Comp Metabolic Ihg949 BUN 12 mg/dL 12/21/2016 Comp Metabolic Jbz870 B/ C Ratio 13.6 Ratio 12/21/2016 Comp Metabolic Cpm814 CA LCIUM 8.6 mg/dL 12/21/2016 Comp Metabolic Cep952 AL K PHOS 69 U/L 12/21/2016 Comp Metabolic Ayo757 T(SGOT) 15 U/L 12/21/2016 Comp Metabolic Opi762 AL T(SGPT) 14 U/L 12/21/2016 Comp Metabolic Ydy364 BI LI T 0.3 mg/dL 12/21/2016 Comp Metabolic Esv972 AL BUMIN 3.7 g/dL 12/21/2016 Comp Metabolic Gav058 TP RO 5.9 g/dL 12/21/2016 Comp Metabolic Hgj504 GL OB 2.2 g/dL 12/21/2016 Comp Metabolic Ecv906 A/ G Ratio 1.7 Ratio 12/21/2016 Comp Metabolic Qmu321 Os mo 272 mOsmo 12/21/2016 Cbc With [...] 34.6 pg 12/21/2016 Cbc With Differential Ord2 [place]% 6.9 % 12/21/2016 Cbc With Differential Ord2 [...] 2.05 K/ul 12/21/2016 Cbc With Differential Ord2 [place] ABS# 0.4 K/ul 12/21/2016 Cbc With Differential Ord2 Eos ABS# 0.2 K/ul 12/21/2016 Cbc With Differential Ord2 Baso ABS# 0.0 K/ul 12/21/2016 Comp Metabolic Jtv708 NA 138 mEq/L 09/03/2016 Comp Metabolic Emn557 K 4.5 mEq/L 09/03/2016 Comp Metabolic Wjy842 CL 102 mEq/L 09/03/2016 Comp Metabolic Uki064 CO2 30.0 mEq/L 09/03/2016 Comp Metabolic Cbz235 AN ION GAP 11 09/03/2016 Comp Metabolic Zyc633 GL UCOSE 113 mg/dL 09/03/2016 Comp Metabolic Gte983 Cr eat 1.0 mg/dL 09/03/2016 Comp Metabolic Gae248 eG FR 81 ml/min/1.73m2 09/03 Comp Metabolic Ota177 BUN 10 mg/dL 09/03/2016 Comp Metabolic Con273 B/ C Ratio 10.5 Ratio 09/03/2016 Comp Metabolic Mby108 CA LCIUM 9.1 mg/dL 09/03/2016 Comp Metabolic Vgb402 AL K PHOS 71 U/L 09/03/2016 Comp Metabolic Nya780 T(SGOT) 18 U/L 09/03/2016 Comp Metabolic Ymn019 AL T(SGPT) 17 U/L 09/03/2016 Comp Metabolic Dtg546 BI LI T 0.6 mg/dL 09/03/2016 Comp Metabolic Tcw038 AL BUMIN 4.1 g/dL 09/03/2016 Comp Metabolic Lcq410 TP RO 6.4 g/dL 09/03/2016 Comp Metabolic Vvm325 GL OB 2.3 g/dL 09/03/2016 Comp Metabolic Jjb972 A/ G Ratio 1.8 Ratio 09/03/2016 Comp Metabolic Uyf814 Os mo 276 mOsmo 09/03/2016 Vitamin D 25 Oh Vhb7974 VITAMIN D, 25 HYDROXY 28.23 ng/mL 09/03/2016 [...] 34.4 pg 09/03/2016 Cbc With Differential Ord2 [place]% 8.9 % 09/03/2016 Cbc With Differential Ord2 [...] 3.34 K/ul 09/03/2016 Cbc With Differential Ord2 [place] ABS# 0.7 K/ul 09/03/2016 Cbc With Differential Ord2 Eos ABS# 0.4 K/ul 09/03/2016 Cbc With Differential Ord2 Baso ABS# 0.0 K/ul 09/03/2016 Lipid Ord30 CHOL 120 mg/dL 09/03/2016 Lipid Ord30 HDL 33.0 mg/dl 09/03/2016 Lipid Ord30 TRIG 161 mg/dL 09/03/2016 Lipid Ord30 LDL 55 mg/dL 09/03/2016 Lipid Ord30 C/HDL 3.6 Ratio 09/03/2016 %Hba1C Rpx985 % HbA1c 84047-6 7.5 % 09/03/2016 %Hba1C Vbh626 Gluc Ave 169 mg/dL 09/03/2016 Tsh Ord6 hTSH II 1.50 uIU/mL 05/23/2016 %Hba1C Xih696 % HbA1c 68196-4 7.6 % 05/23/2016 %Hba1C Cyx470 Gluc Ave 171 mg/dL 05/23/2016 Comp Metabolic Yow837 NA 135 mEq/L 05/23/2016 Comp Metabolic Qgi525 K 4.4 mEq/L 05/23/2016 Comp Metabolic Aeq745 CL 99 mEq/L 05/23/2016 Comp Metabolic Vfw504 CO2 28.0 mEq/L 05/23/2016 Comp Metabolic Onj142 AN ION GAP 12 05/23/2016 Comp Metabolic Pob093 GL UCOSE 257 mg/dL 05/23/2016 Comp Metabolic Ddx028 Cr eat 0.8 mg/dL 05/23/2016 Comp Metabolic Nfx520 eG FR 95 ml/min/1.73m2 05/23 Comp Metabolic Bqw769 BUN 11 mg/dL 05/23/2016 Comp Metabolic Icv591 B/ C Ratio 13.3 Ratio 05/23/2016 Comp Metabolic Mgm153 CA LCIUM 9.0 mg/dL 05/23/2016 Comp Metabolic Qpq767 AL K PHOS 82 U/L 05/23/2016 Comp Metabolic Tda332 T(SGOT) 21 U/L 05/23/2016 Comp Metabolic Zzt023 AL T(SGPT) 20 U/L 05/23/2016 Comp Metabolic Jvt129 BI LI T 0.3 mg/dL 05/23/2016 Comp Metabolic Env961 AL BUMIN 4.0 g/dL 05/23/2016 Comp Metabolic Aox934 TP RO 6.4 g/dL 05/23/2016 Comp Metabolic Ylv692 GL OB 2.4 g/dL 05/23/2016 Comp Metabolic Yze810 A/ G Ratio 1.6 Ratio 05/23/2016 Comp Metabolic Rxw804 Os mo 278 mOsmo 05/23/2016 Cbc With [...] 34.5 pg 05/23/2016 Cbc With Differential Ord2 [place]% 6.1 % 05/23/2016 Cbc With Differential Ord2 [...] 2.38 K/ul 05/23/2016 Cbc With Differential Ord2 [place] ABS# 0.4 K/ul 05/23/2016 Cbc With Differential Ord2 Eos ABS# 0.2 K/ul 05/23/2016 Cbc With Differential Ord2 Baso ABS# 0.0 K/ul 05/23/2016 B12 Oju855 B12 597.00 pg/ml 05/23/2016 Metabolic Ord15 NA [...] 0.92 uIU/mL 07/29/2015 Vitamin D 25 Oh Vzs1463 VITAMIN D, 25 HYDROXY 26.93 ng/mL 07/29/2015 %Hba1C Gmx674 % HbA1c 34321-1 8.8 % 07/29/2015 %Hba1C Xuf176 Gluc Ave 206 mg/dL 07/29/2015 Cbc With [...] Ord2 RDW 14.9 % 07/29/2015 Comp Metabolic Xeh354 NA 138 mEq/L 07/29/2015 Comp Metabolic Zzp352 K 4.4 mEq/L 07/29/2015 Comp Metabolic Zvs469 CL 102 mEq/L 07/29/2015 Comp Metabolic Yvh605 CO2 28.0 mEq/L 07/29/2015 Comp Metabolic Egd036 AN ION GAP 12 07/29/2015 Comp Metabolic Rkv273 GL UCOSE 261 mg/dL 07/29/2015 Comp Metabolic Npc035 Cr eat 1.0 mg/dL 07/29/2015 Comp Metabolic Vpo958 eG FR 77 ml/min/1.73m2 07/29 Comp Metabolic Ots646 BUN 13 mg/dL 07/29/2015 Comp Metabolic Vea627 B/ C Ratio 13.0 Ratio 07/29/2015 Comp Metabolic Qbt442 CA LCIUM 9.1 mg/dL 07/29/2015 Comp Metabolic Tjw765 AL K PHOS 64 U/L 07/29/2015 Comp Metabolic Aar155 T(SGOT) 20 U/L 07/29/2015 Comp Metabolic Kvn619 AL T(SGPT) 22 U/L 07/29/2015 Comp Metabolic Hhx884 BI LI T 0.4 mg/dL 07/29/2015 Comp Metabolic Ppl871 AL BUMIN 4.0 g/dL 07/29/2015 Comp Metabolic Hfj174 TP RO 6.1 g/dL 07/29/2015 Comp Metabolic Ybx511 GL OB 2.1 g/dL 07/29/2015 Comp Metabolic Oxo154 A/ G Ratio 1.9 Ratio 07/29/2015 Comp Metabolic Rxx444 Os mo 285 mOsmo 07/29/2015 Cbc With [...] Ord2 RDW 13.1 % 05/06/2015 Comp Metabolic Koe889 NA 134 mEq/L 05/06/2015 Comp Metabolic Gjz513 K 4.4 mEq/L 05/06/2015 Comp Metabolic Ifh498 CL 98 mEq/L 05/06/2015 Comp Metabolic Ehd287 CO2 29.0 mEq/L 05/06/2015 Comp Metabolic Lcp949 AN ION GAP 11 05/06/2015 Comp Metabolic Rij025 GL UCOSE 321 mg/dL 05/06/2015 Comp Metabolic Nkp828 Cr eat 1.0 mg/dL 05/06/2015 Comp Metabolic Cqs761 eG FR 78 ml/min/1.73m2 05/06 Comp Metabolic Nct260 BUN 20 mg/dL 05/06/2015 Comp Metabolic Pby896 B/ C Ratio 20.4 Ratio 05/06/2015 Comp Metabolic Fey577 CA LCIUM 9.5 mg/dL 05/06/2015 Comp Metabolic Rby332 AL K PHOS 62 U/L 05/06/2015 Comp Metabolic Dba368 T(SGOT) 21 U/L 05/06/2015 Comp Metabolic Rlo927 AL T(SGPT) 37 U/L 05/06/2015 Comp Metabolic Pbj900 BI LI T 0.4 mg/dL 05/06/2015 Comp Metabolic Ubo857 AL BUMIN 3.8 g/dL 05/06/2015 Comp Metabolic Gif232 TP RO 6.1 g/dL 05/06/2015 Comp Metabolic Ryx179 GL OB 2.3 g/dL 05/06/2015 Comp Metabolic Jjm255 A/ G Ratio 1.7 Ratio 05/06/2015 Comp Metabolic Cqm617 Os mo 283 mOsmo 05/06/2015 Tsh Ord6 hTSH II 1.65 uIU/mL 02/18/2015 B12 Bwy447 B12 605.00 pg/ml 02/18/2015 %Hba1C Arc037 % HbA1c 10019-7 8.3 % 02/18/2015 %Hba1C Vrn918 Gluc Ave 192 mg/dL 02/18/2015 Cbc With [...] Ord2 RDW 13.9 % 02/17/2015 Comp Metabolic Zag073 NA 137 mEq/L 02/17/2015 Comp Metabolic Vvm973 K 4.4 mEq/L 02/17/2015 Comp Metabolic Wfu054 CL 100 mEq/L 02/17/2015 Comp Metabolic Ppw872 CO2 31.0 mEq/L 02/17/2015 Comp Metabolic Vgj417 AN ION GAP 10 02/17/2015 Comp Metabolic Vkj592 GL UCOSE 307 mg/dL 02/17/2015 Comp Metabolic Egv096 Cr eat 1.0 mg/dL 02/17/2015 Comp Metabolic Ewm574 eG FR 74 ml/min/1.73m2 02/17 Comp Metabolic Sst161 BUN 22 mg/dL 02/17/2015 Comp Metabolic Crd181 B/ C Ratio 21.4 Ratio 02/17/2015 Comp Metabolic Khp667 CA LCIUM 9.5 mg/dL 02/17/2015 Comp Metabolic Nvn210 AL K PHOS 78 U/L 02/17/2015 Comp Metabolic Rdp702 T(SGOT) 18 U/L 02/17/2015 Comp Metabolic Uec735 AL T(SGPT) 32 U/L 02/17/2015 Comp Metabolic Bgn818 BI LI T 0.5 mg/dL 02/17/2015 Comp Metabolic Pln181 AL BUMIN 4.3 g/dL 02/17/2015 Comp Metabolic Upo552 TP RO 6.7 g/dL 02/17/2015 Comp Metabolic Tip930 GL OB 2.4 g/dL 02/17/2015 Comp Metabolic Mwy034 A/ G Ratio 1.8 Ratio 02/17/2015 Comp Metabolic Qtb896 Os mo 289 mOsmo 02/17/2015 Review of [...] distress 03/07/2018 None Full Exam - General 1995 Constitutional general appearance Overall: well nourished 03/07/2018 None Full Exam - General 1994 Constitutional general appearance Nourishment: thin 03/07/2018 None Full Exam - General 1995 Eyes conjunctiva/eyelids Overall: conjunctiva clear 03/07/2018 None Full Exam - General 1995 Eyes conjunctiva/eyelids Overall: cornea clear 03/07/2018 None [...] Procedure Codes Date THER/PROPH/DIAG INJ SC/IM CPT-4: 33740 11/18/2018 THER/PROPH/DIAG INJ SC/IM CPT-4: 57657 11/04/2018 THER/PROPH/DIAG INJ SC/IM CPT-4: 37950 10/14/2018 THER/PROPH/DIAG INJ SC/IM CPT-4: 00863 10/03/2018 THER/PROPH/DIAG INJ SC/IM CPT-4: 30489 09/23/2018 THER/PROPH/DIAG INJ SC/IM CPT-4: 88159 09/02/2018 THER/PROPH/DIAG INJ SC/IM CPT-4: 65836 08/21/2018 THER/PROPH/DIAG INJ SC/IM CPT-4: 86191 08/08/2018 THER/PROPH/DIAG INJ SC/IM CPT-4: 58075 07/28/2018 THER/PROPH/DIAG INJ SC/IM CPT-4: 48453 07/16/2018 THER/PROPH/DIAG INJ SC/IM CPT-4: 27364 07/02/2018 PPPS, SUBSEQ VISIT CPT- 4: G0439 06/30/2018 THER/PROPH/DIAG INJ SC/IM CPT-4: 10840 06/24/2018 THER/PROPH/DIAG INJ SC/IM CPT-4: 39855 06/13/2018 ADMIN INFLUENZA VIRU S VAC CPT-4: G0008 06/06/2018 FLU VACC PRSV FREE I NC ANTIG CPT-4: 42213 06/06/2018 THER/PROPH/DIAG INJ SC/IM CPT-4: 01667 06/05/2018 THER/PROPH/DIAG INJ SC/IM CPT-4: 69791 05/30/2018 THER/PROPH/DIAG INJ SC/IM CPT-4: 73812 05/22/2018 THER/PROPH/DIAG INJ SC/IM CPT-4: 15253 05/12/2018 THER/PROPH/DIAG INJ SC/IM CPT-4: 83347 05/02/2018 THER/PROPH/DIAG INJ SC/IM CPT-4: 89723 04/24/2018 THER/PROPH/DIAG INJ SC/IM CPT-4: 50408 04/17/2018 KETOROLAC TROMETHAMI NE INJ CPT-4: J1885 03/07/2018 URINALYSIS NONAUTO W /O SCOPE CPT-4: 49461 03/07/2018 THER/PROPH/DIAG INJ SC/IM CPT-4: 29437 02/20/2018 TRIAMCINOLONE ACET I [place] NOS CPT-4: J3301 01/30/2018 THER/PROPH/DIAG INJ SC/IM CPT-4: 75225 01/17/2018 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 3-[address]: [id number] CPT-4: G0436 04/25/2017 ADMIN INFLUENZA VIRU S VAC CPT-4: G0008 04/25/2017 ADMIN PNEUMOCOCCAL V ACCINE SNOMED CT: 61000229 CPT-4: G0009 04/25/2017 PNEUMOCOCCAL VACC [address]: 94773343 CPT-4: 43137 04/25/2017 FLU VACC PRSV FREE I NC ANTIG CPT-4: 74775 04/25/2017 ADMIN INFLUENZA VIRU S VAC CPT-4: G0008 05/22/2016 FLU VACC 4 TELLY 3 YRS PLUS IM Formatting Model/CDA Sections, Assigned to/Angela Clemons SNOMED CT: 51118143 CPT-4: 86582Abunuxk 05/22/2016 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 3-[address]: 720954185 CPT-4: G0436 11/25/2015 URINALYSIS NONAUTO W /O SCOPE CPT-4: 30081 05/09/2015 TRIAMCINOLONE ACET I [place] NOS CPT-4: J3301 04/12/2015 DESTRUCT PREMALG LESION CPT-4: 78810 03/07/2015 DESTRUCT PREMALG LES 2-14 CPT-4: 49648 03/07/2015 REMOVE IMPACTED EAR WAX UNI CPT-4: 46290 12/31/2014 THER/PROPH/DIAG INJ SC/IM CPT-4: 25066 12/23/2014 TRIAMCINOLONE ACET I [place] NOS CPT-4: J3301 12/23/2014 Vital Signs Date Vital 10/17/2018 Blood Pressure 1: 124/54 Code: 8480-6 BMI: 21.9 Code: 09699-0 Heart Rate 1: 64 bpm Height: 5'11" SpO2: 93% Weight: 157 lbs 09/02/2018 Blood Pressure 1: 140/80 Code: 8480-6 BMI: 21.2 Code: 25070-3 Heart Rate 1: 68 bpm Height: 5'11" SpO2: 97% Weight: 152 lbs 06/30/2018 BMI: 21.8 Code: 07586-1 Height: 5'11" Weight: 156 lbs 06/06/2018 Blood Pressure 1: 128/76 Code: 8480-6 BMI: 22.0 Code: 71636-0 Heart Rate 1: 81 bpm Height: 5'11" SpO2: 92% Weight: 158 lbs 04/04/2018 Blood Pressure 1: 124/70 Code: 8480-6 BMI: 20.8 Code: 52323-7 Heart Rate 1: 65 bpm Height: 5'11" SpO2: 95% Weight: 149 lbs 03/07/2018 Blood Pressure 1: 148/70 Code: 8480-6 BMI: 21.2 Code: 58839-9 Heart Rate 1: 66 bpm Height: 5'11" SpO2: 94% Weight: 152 lbs 02/20/2018 Blood Pressure 1: 134/58 Code: 8480-6 BMI: 20.5 Code: 00485-1 Heart Rate 1: 61 bpm Height: 5'11" SpO2: 92% Weight: 147 lbs 01/30/2018 Blood Pressure 1: 158/68 Code: 8480-6 BMI: 21.5 Code: 66600-6 Heart Rate 1: 71 bpm Height: 5'11" SpO2: 92% Weight: 154 lbs 01/14/2018 Blood Pressure 1: 156/70 Code: 8480-6 Height: Weight: 01/13/2018 Blood Pressure 1: 148/62 Code: 8480-6 BMI: 20.9 Code: 56685-0 Heart Rate 1: 54 bpm Height: 5'11" SpO2: 97% Weight: 150 lbs 11/19/2017 Blood Pressure 1: 150/60 Code: 8480-6 BMI: 21.8 Code: 32634-3 Heart Rate 1: 63 bpm Height: 5'11" SpO2: 98% Weight: 156 lbs 10/02/2017 Blood Pressure 1: 168/60 Code: 8480-6 BMI: 21.9 Code: 93445-3 Heart Rate 1: 52 bpm Height: 5'11" SpO2: 97% Weight: 157 lbs 07/23/2017 Blood Pressure 1: 170/70 Code: 8480-6 BMI: 21.8 Code: 52750-0 Heart Rate 1: 65 bpm Height: 5'11" SpO2: 98% Weight: 156 lbs 04/25/2017 Blood Pressure 1: 138/60 Code: 8480-6 BMI: 21.6 Code: 89365-7 Heart Rate 1: 55 bpm Height: 5'11" SpO2: 93% Weight: 155 lbs 02/19/2017 Blood Pressure 1: 138/64 Code: 8480-6 BMI: 21.3 Code: 20905-5 Heart Rate 1: 52 bpm Height: 5'11" SpO2: 96% Weight: 152 lbs 8 oz 01/21/2017 Blood Pressure 1: 160/68 Code: 8480-6 BMI: 21.3 Code: 76193-3 Heart Rate 1: 62 bpm Height: 5'11" SpO2: 96% Weight: 153 lbs 12/20/2016 Blood Pressure 1: 124/66 Code: 8480-6 BMI: 21.5 Code: 74294-3 Height: 5'11" Weight: 154 lbs 08/23/2016 Blood Pressure 1: 142/52 Code: 8480-6 BMI: 21.2 Code: 16691-3 Heart Rate 1: 54 bpm Height: 5'11" SpO2: 96% Weight: 152 lbs 05/22/2016 Blood Pressure 1: 130/76 Code: 8480-6 BMI: 21.5 Code: 60675-0 Heart Rate 1: 78 bpm Height: 5'11" SpO2: 92% Weight: 154 lbs 02/24/2016 Blood Pressure 1: 128/80 Code: 8480-6 BMI: 21.2 Code: 71232-4 Heart Rate 1: 74 bpm Height: 5'11" SpO2: 96% Weight: 152 lbs 01/27/2016 Blood Pressure 1: 144/60 Code: 8480-6 BMI: 21.2 Code: 44412-6 Heart Rate 1: 74 bpm Height: 5'11" SpO2: 97% Weight: 152 lbs 11/25/2015 Blood Pressure 1: 110/52 Code: 8480-6 BMI: 21.9 Code: 85089-4 Heart Rate 1: 65 bpm Height: 5'11" SpO2: 92% Weight: 157 lbs 07/28/2015 Blood Pressure 1: 138/62 Code: 8480-6 BMI: 21.8 Code: 41012-0 Heart Rate 1: 63 bpm Height: 5'11" SpO2: 91% Weight: 156 lbs 05/26/2015 Blood Pressure 1: 120/58 Code: 8480-6 BMI: 21.5 Code: 21592-6 Heart Rate 1: 99 bpm Height: 5'11" SpO2: 96% Weight: 154 lbs 05/06/2015 Blood Pressure 1: 120/58 Code: 8480-6 BMI: 21.2 Code: 12849-4 Heart Rate 1: 66 bpm Height: 5'11" SpO2: 96% Weight: 152 lbs 04/25/2015 Blood Pressure 1: 136/62 Code: 8480-6 BMI: 21.2 Code: 65031-1 Heart Rate 1: 63 bpm Height: 5'11" SpO2: 97% Weight: 152 lbs 04/12/2015 Blood Pressure 1: 160/58 Code: 8480-6 BMI: 21.6 Code: 93687-4 Heart Rate 1: 62 bpm Height: 5'11" Weight: 155 lbs 03/24/2015 Blood Pressure 1: 138/68 Code: 8480-6 BMI: 22.0 Code: 43889-1 Heart Rate 1: 65 bpm Height: 5'11" SpO2: 96% Weight: 158 lbs 03/07/2015 Blood Pressure 1: 116/52 Code: 8480-6 BMI: 22.2 Code: 14517-5 Heart Rate 1: 64 bpm Height: 5'11" SpO2: 97% Weight: 159 lbs 02/17/2015 Blood Pressure 1: 148/58 Code: 8480-6 BMI: 21.3 Code: 96066-2 Heart Rate 1: 63 bpm Height: 5'11" SpO2: 97% Weight: 153 lbs 12/31/2014 Blood Pressure 1: 100/60 Code: 8480-6 BMI: 21.8 Code: 85254-9 Heart Rate 1: 68 bpm Height: 5'11" Weight: 156 lbs 12/23/2014 Blood Pressure 1: 148/64 Code: 8480-6 BMI: 21.9 Code: 45150-2 Heart Rate 1: 64 bpm Height: 5'11" [...] None cough Location in the [facility] 11/25/2015 None cough Quality acute 11/25/2015 None [...] Encounters Encounter Performer Loca tion Codes Date ([id number]) [id number] EST. P ANISA, LEVEL III Diagnosis: Orthostatic hypotension[ICD10: I95.1] Diagnosis: Low back pain[ICD10: M54.5] Diagnosis: Unsteadiness on feet[ICD10: R26.81] Karmen Ash MD, [facility] CPT-4: 13511 10/17/2018 ([id number]) [id number] EST. P ANISA, LEVEL IV Diagnosis: Essential (primary) hypertension[ICD10: I10] Diagnosis: Chronic obstructive pulmonary disease, unspecified[ICD10: J44.9] Diagnosis: Type 2 diabetes mellitus with hyperglycemia[ICD10: E11.65] Diagnosis: Vitamin D deficiency, unspecified[ICD10: E55.9] Diagnosis: Mixed hyperlipidemia[ICD10: E78.2] Diagnosis: Testicular dysfunction, unspecified[ICD10: E29.9] Karmen Ash MD, [facility] CPT-4: 88589 09/02/2018 ([id number]) [id number] EST. P ATIENT, LEVEL IV Diagnosis: Cellulitis of face[ICD10: L03.211] Diagnosis: Type 2 diabetes mellitus without complications[ICD10: E11.9] Diagnosis: Essential (primary) hypertension[ICD10: I10] Diagnosis: Encounter for immunization[ICD10: Z23] Karmen Ash MD, [facility] CPT-4: 01958 06/06/2018 ([id number]) 62822 EST. 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 P ATIENT, LEVEL III Diagnosis: Low back pain[ICD10: M54.5] Diagnosis: Dysuria[ICD10: R30.0] Karmen Ash MD, [facility] CPT-4: 56458 03/07/2018 ([id number]) 51123 EST. 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 P ATIENT, LEVEL III Diagnosis: Chronic obstructive pulmonary disease with (acute) exacerbation[ICD10: J44.1] Karmen Ash MD, [facility] CPT-4: 71272 01/30/2018 79608 EST. PATIENT, LEVEL II Diagnosis: Insect bite (nonvenomous), left lower leg, initial encounter[ICD10: S80.862A] Karmen Ash MD, [facility] CPT-4: 25592 01/14/2018 ([id number]) 26423 EST. P ATIENT, LEVEL IV Diagnosis: Type 2 diabetes mellitus with hyperglycemia[ICD10: E11.65] Diagnosis: Chronic obstructive pulmonary disease, unspecified[ICD10: J44.9] Diagnosis: Other fatigue[ICD10: R53.83] Karmen Ash MD, [facility] CPT- 4: 34231 01/13/2018 ([id number]) 00792 EST. P ATIENT, LEVEL IV Diagnosis: Type 2 diabetes mellitus with hyperglycemia[ICD10: E11.65] Diagnosis: Vitamin D deficiency, unspecified[ICD10: E55.9] Diagnosis: Essential (primary) hypertension[ICD10: I10] Diagnosis: Abdominal distension (gaseous)[ICD10: R14.0] Diagnosis: Drug induced constipation[ICD10: K59.03] Karmen Ash MD, [facility] CPT-4: 09991 11/19/2017 22110 EST. PATIENT, LEVEL IV Diagnosis: Low back pain[ICD10: M54.5] Diagnosis: Chronic obstructive pulmonary disease, unspecified[ICD10: J44.9] Brunilda Ash MD, [facility] CPT-4: 61512 10/02/2017 ([id number]) 32465 EST. P ATIENT, LEVEL IV Diagnosis: Essential (primary) hypertension[ICD10: I10] Diagnosis: Type 2 diabetes mellitus with hyperglycemia[ICD10: E11.65] Diagnosis: Vitamin D deficiency, unspecified[ICD10: E55.9] Diagnosis: Mixed hyperlipidemia[ICD10: E78.2] Karmen Ash MD, [facility] CPT-4: 81078 07/23/2017 ([id number]) 46133 EST. P ATIENT, LEVEL IV Diagnosis: Essential (primary) hypertension[ICD10: I10] Diagnosis: Type 2 diabetes mellitus with hyperglycemia[ICD10: E11.65] Diagnosis: Chronic obstructive pulmonary disease, unspecified[ICD10: J44.9] Diagnosis: Nicotine dependence, unspecified, uncomplicated[ICD10: F17.200] Diagnosis: Encounter for immunization[ICD10: Z23] Kamren Ash MD, [facility] CPT-4: 25508 04/25/2017 ([id number]) 98421 EST. P ATIENT, LEVEL IV Diagnosis: Type 2 diabetes mellitus with hyperglycemia[ICD10: E11.65] Diagnosis: Essential (primary) hypertension[ICD10: I10] Diagnosis: Anemia, unspecified[ICD10: D64.9] Karmen Ash MD, [facility] CPT- 4: 26523 02/19/2017 ([id number]) 73282 EST. P ATIENT, LEVEL IV Diagnosis: Slow transit constipation[ICD10: K59.01] Diagnosis: Gastro-esophageal reflux disease without esophagitis[ICD10: K21.9] Diagnosis: Essential (primary) hypertension[ICD10: I10] Karmen Ash MD, [facility] CPT-4: 83893 01/21/2017 ([id number]) 11147 EST. P ATIENT, LEVEL IV Diagnosis: Type 2 diabetes mellitus with hyperglycemia[ICD10: E11.65] Diagnosis: Vitamin D deficiency, unspecified[ICD10: E55.9] Diagnosis: Essential (primary) hypertension[ICD10: I10] Diagnosis: Chronic obstructive pulmonary disease, unspecified[ICD10: J44.9] Karmen Ash MD, [facility] CPT-4: 96059 12/20/2016 ([id number]) 02464 EST. P ATIENT, LEVEL IV Diagnosis: Type 2 diabetes mellitus with hyperglycemia[ICD10: E11.65] Diagnosis: Essential (primary) hypertension[ICD10: I10] Diagnosis: Mixed hyperlipidemia[ICD10: E78.2] Diagnosis: Vitamin D deficiency, unspecified[ICD10: E55.9] Karmen Ash MD, [facility] CPT-4: 17041 08/23/2016 ([id number]) 60702 EST. P ATIENT, LEVEL IV Diagnosis: Type 2 diabetes mellitus with hyperglycemia[ICD10: E11.65] Diagnosis: Essential (primary) hypertension[ICD10: I10] Diagnosis: Chronic obstructive pulmonary disease, unspecified[ICD10: J44.9] Karmen Ash MD, [facility] CPT-4: 03739 05/22/2016 ([id number]) 90916 EST. P ATIENT, LEVEL III Diagnosis: Dysuria[ICD10: R30.0] Diagnosis: Essential (primary) hypertension[ICD10: I10] Karmen Ash MD, [facility] CPT-4: 64433 02/24/2016 ([id number]) 91310 EST. P ATIENT, LEVEL IV Diagnosis: Gastro-esophageal reflux disease without esophagitis[ICD10: K21.9] Diagnosis: Slow transit constipation[ICD10: K59.01] Diagnosis: Type 2 diabetes mellitus with hyperglycemia[ICD10: E11.65] Karmen Ash MD, [facility] CPT-4: 37532 01/27/2016 ([id number]) 03201 EST. P ATIENT, LEVEL IV Diagnosis: Essential (primary) hypertension[ICD10: I10] Diagnosis: Type 2 diabetes mellitus with hyperglycemia[ICD10: E11.65] Diagnosis: Vitamin D deficiency, unspecified[ICD10: E55.9] Diagnosis: Chronic obstructive pulmonary disease, unspecified[ICD10: J44.9] Diagnosis: Mixed hyperlipidemia[ICD10: E78.2] Diagnosis: Tobacco use[ICD10: Z72.0] Karmen Ash MD, [facility] CPT- 4: 84034 11/25/2015 ([id number]) 76521 EST. P ATIENT, LEVEL IV Diagnosis: Type 2 diabetes mellitus with hyperglycemia[ICD10: E11.65] Diagnosis: Essential (primary) hypertension[ICD10: I10] Diagnosis: Vitamin D deficiency, unspecified[ICD10: E55.9] Karmen Ash MD, [facility] CPT-4: 68495 07/28/2015 ([id number]) 81504 EST. P ATIENT, LEVEL III Diagnosis: Type 2 diabetes mellitus with hyperglycemia[ICD10: E11.65] Diagnosis: Essential (primary) hypertension[ICD10: I10] Violeta Ash MD, [facility] CPT-4: 94707 05/26/2015 ([id number]) 08600 EST. P ATIENT, LEVEL III Diagnosis: DIABETES TYPE II[ICD9: 250.00] Diagnosis: COPD (chronic obstructive pulmonary disease)[ICD9: 496] Diagnosis: ESSENTIAL HYPERTENSION[ICD9: 401.9] Diagnosis: Cough[ICD9: 786.2] Violeta Ash MD, [facility] CPT-4: 28139 05/06/2015 ([id number]) 94433 EST. P ATIENT, LEVEL III Diagnosis: COPD (chronic obstructive pulmonary disease)[ICD9: 496] Diagnosis: DIABETES TYPE II[ICD9: 250.00] Diagnosis: Muscle ache[ICD9: 729.1] Karmen Ash MD, [facility] CPT- 4: 95083 04/25/2015 ([id number]) 13634 EST. P ATIENT, LEVEL III Diagnosis: ACTINIC KERATOSIS[ICD9: 702.0] Diagnosis: COPD (chronic obstructive pulmonary disease)[ICD9: 496] Diagnosis: DIABETES TYPE II[ICD9: 250.00] Diagnosis: ACUTE URI[ICD9: 465.9] Violeta Ash MD, [facility] CPT-4: 02352 04/12/2015 ([id number]) 92650 EST. P ATIENT, LEVEL III Diagnosis: DIABETES TYPE II[ICD9: 250.00] Violeta Ash MD, [facility] CPT-4: 02282 03/24/2015 ([id number]) 37200 EST. P ATIENT, LEVEL IV Diagnosis: DIABETES TYPE II[ICD9: 250.00] Diagnosis: Hypoglycemia[ICD9: 251.2] Diagnosis: Skin texture changes[ICD9: 782.8] Violeta Ash MD, [facility] CPT-4: 05923 03/07/2015 ([id number]) 83921 EST. P ATIENT, LEVEL IV Diagnosis: COPD (chronic obstructive pulmonary disease)[ICD9: 496] Diagnosis: Fatigue[ICD9: 780.79] Diagnosis: Insulin dependent diabetes mellitus[ICD9: 250.00] Diagnosis: Unsteady gait[ICD9: 781.2] Maame Ash MD, [facility] CPT-4: 85979 02/17/2015 ([id number]) 47304 EST. P ATIENT, LEVEL IV Diagnosis: BPPV (benign paroxysmal positional vertigo)[ICD9: 386.11] Diagnosis: Impacted cerumen[ICD9: 380.4] Diagnosis: ESSENTIAL HYPERTENSION[ICD9: 401.9] Diagnosis: Insulin dependent diabetes mellitus[ICD9: 250.00] [facility] CPT-4: 62673 12/23/2014 ([id number]) OFFICE [facility] LEVEL 4 Diagnosis: Insulin dependent diabetes mellitus[ICD9: 250.00] Diagnosis: BPPV (benign paroxysmal positional vertigo)[ICD9: 386.11] Diagnosis: COPD (chronic obstructive pulmonary disease)[ICD9: 496] Diagnosis: Tobacco abuse[ICD9: 305.1] Diagnosis: Osteoarthritis[ICD9: 715.90] [facility] CPT- 4: 33391 12/09/2014 Plan of Care Planned Activity Notes C odes Status Date Patient Education: Patient Medication Summary Completed 11/18/2018 Appointment: Injection 11/04/2018 Patient Education: Patient Medication Summary Completed 11/04/2018 [facility] [phone] [phone] (30 min) Complex 10/21/2018 Visit Plan: Orthostatic [...] a walker 10/17/2018 Appointment: [facility]inal [facility]el[facility] [phone] [phone] (30 min) Complex 10/17/2018 Patient Education: Patient [...] medications. 09/02/2018 Appointment: [facility]inal [facility]el[facility] [phone] [phone] (15 min) Moderate 09/02/2018 Patient Education: Patient [...] Visit Plan: Medicare Exam - today ronald e discussed the patients past history, immunizations, [...] surrogate. 06/30/2018 Appointment: [facility]inal [facility] [phone] [phone] [facility] - Annual Wellness Visit 06/30/2018 [...] the lesion, increase in pain. 06/06/2018 Appointment: Kramen Espinal WPtel[facility] [phone] [phone] (15 min) Moderate 06/06/2018 Patient Education: Patient [...] 2 months 04/04/2018 Appointment: Karmen Espinal WPtel: [address] [place], [place] [phone] (15 min) Moderate 04/04/2018 Patient Education: Patient Medication Summary Completed 04/04/2018 Care Plan: Cbc With Differential Pending 04/04/2018 Care Plan: Testosterone repeat in 2 months Pending 04/04/2018 Appointment: Karmen Espinal WPtel: [phone] [place] (15 min) Moderate 03/25/2018 Visit Plan: Low back pain -history of kidney stone-UA negative today -increase fluids and call if pain does not resolve or if any worse. 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 01/30/2018 Appointment: Karmen Espinal WPtel: [phone] [phone] (15 min) Moderate 01/30/2018 Patient Education: Patient Medication Summary Completed 01/30/2018 Appointment: Karmen Espinal WPtel: [phone] (15 min) Moderate 01/28/2018 Appointment: Injection 01/17/2018 Patient Education: Patient Medication Summary Completed 01/17/2018 Visit Plan: Cellulitis - start oral antibiotics as directed, return to clinic as previously directed, call for acute change in symptoms, worsening redness, warmth, discharge. 01/14/2018 Appointment: Karmen Espinal WPtel: [phone] (10 min) Simple 01/14/2018 Patient [...] Espinal WPtel: [phone] (15 min) Moderate 01/13/2018 Patient Education: Patient Medication Summary Completed 01/13/2018 Referral: Hugo Villatoro HPtel:[phone] [facility] Patient's informed. Referral info ned monroy. Completed [...] change in blood pressure readings at home. Lgrqndyg-mrszxz-iygzb to see Dr Villatoro Constipation-start linzess daily 11/19/2017 Appointment: Karmen Espinal WPtel: [phone] [place] [address] (30 min) Complex 11/19/2017 Patient Education: Patient Medication Summary Completed 11/19/2017 Care Plan: Referral Order bloating, nausea SNOMED-CT : [id number] Pending 11/19/2017 Visit Plan: Low back pain- [...] acute changes. 10/02/2017 Appointment: Brunilda Maravilla WPtel: [address] [place], [place] [id number] (15 min) Moderate 10/02/2017 Patient Education: Patient [...] to become less controlled. 07/23/2017 Appointment: Karmen Espinaltel: [phone] (30 min) Complex 07/23/2017 Patient Education: Patient [...] pack/year history 04/25/2017 Appointment: Karmen Espinal WPtel: [phone] [place] (30 min) Complex 04/25/2017 Patient Education: Patient [...] readings are starting to become less controlled. Lggudl-mvkmkgj-eelgn labs 02/19/2017 Appointment: Karmen Espinal WPtel: [phone] (30 min) Complex 02/19/2017 Patient Education: Patient [...] month 01/21/2017 Appointment: Karm[facility] Espinal WPtel[facility] [phone] [phone] (30 min) Complex 01/21/2017 Patient Education: Patient Medication Summary Completed 01/21/2017 Patient Education: Smoking and Tobacco Addiction Completed 01/21/2017 Patient Education: Hypertension Completed 01/21/2017 Care Plan: Referral Order SNOMED-CT : [id number] Pending 01/21/2017 Visit Plan: Diabetes Mellitus - [...] changes. 12/20/2016 Appointment: Karmen Espinal WPtel: [phone] [phone] (30 min) Complex 12/20/2016 Patient Education: Patient Medication Summary Completed 12/20/2016 Patient Education: Smoking and Tobacco Addiction Completed 12/20/2016 Patient Education: Hypertension Completed 12/20/2016 Appointment: Karmen Espinal WPtel: [phone] [phone] (30 min) Complex 09/06/2016 Visit [...] level 08/23/2016 Appointment: [facility]inal WPtel[facility] [phone] [phone] (30 min) Complex 08/23/2016 Patient Education: Patient [...] acute changes. 05/22/2016 Appointment: Karmen Espinal WPtel: [address] [place], [place] [phone] (30 min) Complex 05/22/2016 Patient Education: Patient Medication Summary Completed 05/22/2016 Patient Education: Smoking and Tobacco Addiction Completed 05/22/2016 Care Plan: Cbc With Differential Ordered 05/22/2016 Care Plan: %Hba1C LOIN C : 25289-4 Ordered 05/22/2016 Care Plan: Tsh Ordered 05/22/2016 [...] with update 02/24/2016 Appointment: Karmen Espinal WPtel: [address] [place] [phone] (30 min) Complex 02/24/2016 Patient Education: Patient [...] this regimen. 01/27/2016 Appointment: Karmen Espinal WPtel: [address] [place], [place] [phone] (30 min) [facility] 01/27/2016 Patient Education: Patient Medication Summary [...] use medication to assist cessation. 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 Dfheejlj-cisylgog-JFSY SIMVASTATIN X 2 WEEKS AND CALL WITH [...] Care Plan: COMPLETE CBC AUTOMATED LOINC : 10950-2 Ordered 03/24/2015 Visit Plan: Diabetes Mellitus - [...] for removal. 03/07/2015 Appointment: [facility]el[facility] [phone] [phone] (15 min) Moderate 03/07/2015 Patient [...] Care Plan: COMPLETE CBC AUTOMATED LOINC : 18839-6 Ordered 12/23/2014 Visit Plan: BPPV - Benign [...] appt 12/09/2014 Appointment: Karm[facility] Espinal WPtel[facility] [phone] [phone] [place] ([place] New Patient 12/09/2014 Patient Education: Patient Medication Summary Completed 12/09/2014 Patient Education: .Amazing charts Parox ysmal positional vertigo Completed 12/09/2014 Patient Education: Smoking and Tobacco Addiction Completed 12/09/2014 Referral: Hugo Villatoro HPtel:[phone] [facility] Ref[facility] Appointment Requested Referral: Luis Donohue Referral [...] readings are starting to become less controlled. Ztxbat-simhhpl-juugb labs . Cellulitis - start oral antibiotics [...] change in blood pressure readings at home. Yffqvwhy-pajekw-pwdgs to see Dr Villatoro Constipation-start linzess daily [...] POTENTIAL SIDE EFFECTS AND WORSENING OF SYMPTOMS. Krspbmte-czekuvvy-GDFU SIMVASTATIN X 2 WEEKS AND CALL WITH [...]
--- OUTSIDE RECORDS SUMMARY | 2020-03-29 08:50 | XMS REPORT | CCD ---
Author Author Dick Espinal Organization Violeta Ash MD, [facility] Address [address] [place] [address] Phone Care Team Providers Care Product Development Worker Name Role Phone PP Unavailable CCM Unavailable Summary Purpose Interface Exchange Insurance Providers Payer name Policy type / Coverage type Covered constitution party ID Effective Begin Date Effective End Date WPS Medicare Part B Medicare Part B [id number] Unknown Unknown [employer] Medicar e Part B [id number] Unknown Unkn own Family history Father Diagnosis Age At Onset Cancer Unknown Mother Diagnosis Age At Onset Cancer Unknown Social History Social History Element Codes Description Effective Dates Marital status Unknown M arried 12/09/2014 Employment Unknown Retir ed 12/09/[address]: 56673861 Currently smokes tobacco 12/09/2014 Number of years using tobacco Unknown > 50 12/09/2014 Number of cigarettes/day Unknown 30 (Pack and a half) 12/09/[address]: 608516490 Never drinks alcohol 12/09/2014 Allergies, Adverse Reactions, [...] cypiona te 200 mg/mL intramuscular oil RxNorm: 4337845 1/2 Milliliter(s) IM [id number] 11/04/2018 03/03/2019 Active testosterone cypiona te 200 mg/mL intramuscular oil RxNorm: 0192144 Milliliter(s) IM 11/04/2018 11/04/2018 In active nicotine 21 mg/24 hr daily transdermal patch RxNorm: 300434 1 TD daily 10/31/2018 11/29/2018 Ac tive nicotine 21 mg/24 hr daily transdermal patch RxNorm: 108444 1 TD daily 10/31/2018 10/30/2018 In active meclizine 25 mg tablet RxNorm: 107515 1 Tablet(s) PO Q6 PRN TAKE ONE TABLET BY MOUTH EVERY 6 HOURS NEEDED 10/17/2018 01/14/2019 Active hydrocodone 5 mg-linh taminophen 325 mg tablet RxNorm: 882424 1 Tablet(s) PO Q6-8H as needed 10/17/2018 11/10/2018 Active metformin 500 mg tablet RxNorm: 801713 Tablet(s) TAKE 1 TABLET BY MOUTH DAILY 10/15/2018 10/09/2019 Ac tive lisinopril 10 mg tablet RxNorm: 695023 TAKE 1 TABLET BY MOUTH TWO TIMES DAILY 10/15/2018 10/09/2019 Ac tive - First Attempt Ref: [id number] testosterone cypiona te 200 mg/mL intramuscular oil RxNorm: 0158381 Milliliter(s) IM 10/14/2018 10/14/2018 In active Xanax 0.5 mg tablet RxNorm: 185635 1 Tablet(s) PO TID 10/03/2018 11/30/2018 Active testosterone cypiona te 200 mg/mL intramuscular oil RxNorm: 1150191 1/2 Milliliter(s) IM weekly 10/03/2018 11/03/2018 Inactive testosterone cypiona te 200 mg/mL intramuscular oil RxNorm: 1681273 Milliliter(s) IM 10/03/2018 10/03/2018 In active testosterone cypiona te 200 mg/mL intramuscular oil RxNorm: 6113146 Milliliter(s) IM 09/23/2018 09/23/2018 In active hydrocodone 5 mg-linh taminophen 325 mg tablet RxNorm: 589195 1 Tablet(s) PO Q6-8H as needed 09/22/2018 10/16/2018 Inactive testosterone cypiona te 200 mg/mL intramuscular oil RxNorm: 0549936 1/2 Milliliter(s) IM 09/02/2018 09/02/2018 Inactive testosterone enantha te 200 mg/mL intramuscular oil RxNorm: 857062 Milliliter(s) IM 08/21/2018 08/21/2018 In active hydrocodone 5 mg-linh taminophen 325 mg tablet RxNorm: 859758 1 Tablet(s) PO Q6-8H as needed 08/21/2018 09/14/2018 Inactive testosterone cypiona te 200 mg/mL intramuscular oil RxNorm: 6619078 Milliliter(s) IM 08/08/2018 08/08/2018 In active testosterone cypiona te 200 mg/mL intramuscular oil RxNorm: 8321282 1/2 Milliliter(s) IM 07/28/2018 07/28/2018 Inactive hydrocodone 5 mg-linh taminophen 325 mg tablet RxNorm: 331931 1 Tablet(s) PO Q6-8H as needed 07/21/2018 08/14/2018 Inactive testosterone cypiona te 200 mg/mL intramuscular oil RxNorm: 676897 Milliliter(s) IM 07/16/2018 07/16/2018 In active testosterone cypiona te 200 mg/mL intramuscular oil RxNorm: 971222 Milliliter(s) IM 07/02/2018 07/02/2018 In active Xanax 0.5 mg tablet RxNorm: 827365 1 Tablet(s) PO TID 06/27/2018 08/24/2018 Inactive testosterone cypiona te 200 mg/mL intramuscular oil RxNorm: 626908 Milliliter(s) IM 06/24/2018 06/24/2018 In active hydrocodone 5 mg-linh taminophen 325 mg tablet RxNorm: 438656 1 Tablet(s) PO Q6-8H as needed 06/23/2018 07/17/2018 Inactive testosterone cypiona te 200 mg/mL intramuscular oil RxNorm: 927554 Milliliter(s) IM 06/13/2018 06/13/2018 In active testosterone cypiona te 200 mg/mL intramuscular oil RxNorm: 657952 Milliliter(s) IM 06/05/2018 06/05/2018 In active testosterone cypiona te 200 mg/mL intramuscular oil RxNorm: 9730914 1/2 Milliliter(s) IM weekly 05/30/2018 09/26/2018 Inactive testosterone cypiona te 200 mg/mL intramuscular oil RxNorm: 981405 Milliliter(s) IM 05/30/2018 05/30/2018 In active testosterone cypiona te 200 mg/mL intramuscular oil RxNorm: 861929 Milliliter(s) IM 05/22/2018 05/22/2018 In active hydrocodone 5 mg-linh taminophen 325 mg tablet RxNorm: 760388 1 Tablet(s) PO Q6-8H as needed 05/20/2018 06/13/2018 Inactive testosterone cypiona te 200 mg/mL intramuscular oil RxNorm: 006752 1/2 Milliliter(s) IM 05/12/2018 05/12/2018 Inactive testosterone cypiona te 200 mg/mL intramuscular oil RxNorm: 893957 Milliliter(s) IM 05/02/2018 05/02/2018 In active testosterone cypiona te 200 mg/mL intramuscular oil RxNorm: 292573 1/2 Milliliter(s) IM weekly 04/24/2018 05/29/2018 Inactive testosterone cypiona te 200 mg/mL intramuscular oil RxNorm: 084595 0.5 Milliliter(s) IM 04/24/2018 04/24/2018 Inactive hydrocodone 5 mg-linh taminophen 325 mg tablet RxNorm: 399364 1 Tablet(s) PO Q6-8H as needed 04/22/2018 05/16/2018 Inactive testosterone cypiona te 200 mg/mL intramuscular oil RxNorm: 351752 1/2 Milliliter(s) IM 04/17/2018 04/17/2018 Inactive testosterone cypiona te 200 mg/mL intramuscular oil RxNorm: 795205 1/2 Milliliter(s) IM weekly 04/16/2018 04/23/2018 Inactive Jardiance 10 mg tablet RxNorm: 8202264 1 Tablet(s) PO daily 04/04/2018 12/29/2018 Active Protonix 40 mg table t,delayed release RxNorm: 655960 1 Tablet(s) PO daily TAKE 1 TABLET BY MOUTH DAILY 04/04/2018 03/29/2019 Active - Ref: [id number] testosterone cypiona te 200 mg/mL intramuscular oil RxNorm: 046317 1 Milliliter(s) IM monthly 04/04/2018 04/15/2018 Inactive hydrocodone 5 mg-linh taminophen 325 mg tablet RxNorm: 146338 1 Tablet(s) PO Q6-8H as needed 03/19/2018 04/12/2018 Inactive Flomax 0.4 mg capsule RxNorm: 086068 1 Capsule(s) PO daily 03/10/2018 03/04/2019 Active Urecholine 25 mg tablet RxNorm: 901461 1 Tablet(s) PO BID 03/10/2018 07/07/2018 Inactive ketorolac 60 mg/2 mL intramuscular solution RxNorm: 2564137 Milliliter(s) IM 03/07/2018 03/07/2018 In active metformin 500 mg tablet RxNorm: 191327 Tablet(s) TAKE 1 TABLET BY MOUTH DAILY 02/20/2018 02/13/2019 Ac tive 1 q am and 1/2 tab q pm hydrocodone 5 mg-linh taminophen 325 mg tablet RxNorm: 112053 1 Tablet(s) PO Q6-8H as needed 02/20/2018 03/16/2018 Inactive Kenalog 40 mg/mL bartolome pension for injection RxNorm: 7730973 1.5 Milliliter(s) In j 01/30/2018 01/30/2018 In active hydrocodone 5 mg-linh taminophen 325 mg tablet RxNorm: 466978 1 Tablet(s) PO Q6-8H as needed 01/23/2018 02/16/2018 Inactive Urecholine 25 mg tablet RxNorm: 044923 1 Tablet(s) PO BID 01/22/2018 03/09/2018 Inactive Flomax 0.4 mg capsule RxNorm: 551053 1 Capsule(s) PO daily 01/22/2018 03/09/2018 Inactive Flomax 0.4 mg capsule RxNorm: 058343 1 Capsule(s) PO daily 01/22/2018 01/21/2018 Inactive Urecholine 25 mg tablet RxNorm: 575989 1 Tablet(s) PO BID 01/22/2018 01/21/2018 Inactive testosterone cypiona te 200 mg/mL intramuscular oil RxNorm: 740256 Milliliter(s) IM 01/17/2018 01/17/2018 In active testosterone cypiona te 200 mg/mL intramuscular oil RxNorm: 674024 1 Milliliter(s) IM monthly 01/17/2018 04/03/2018 Inactive doxycycline hyclate 100 mg tablet RxNorm: 432879 1 Tablet(s) PO BID 01/14/2018 01/23/2018 Inactive lisinopril 10 mg tablet RxNorm: 760372 TAKE 1 TABLET BY MOUTH TWO TIMES DAILY 01/14/2018 10/14/2018 In active - First Attempt Ref: [id number] Xanax 0.5 mg tablet RxNorm: 444656 1 Tablet(s) PO TID 01/08/2018 04/06/2018 Inactive nystatin 100,000 uni t/mL oral suspension RxNorm: 460357 4 Milliliter(s) PO QI D Swish and swallow 01/08/2018 01/07/2018 Inactive nystatin 100,000 uni t/mL oral suspension RxNorm: 512564 4 Milliliter(s) PO QI D Swish and swallow 01/08/2018 01/12/2018 Inactive simvastatin 40 mg ta blet RxNorm: 499349 TAKE 1 TABLET BY MOUT H DAILY AT BEDTIME 12/30/2017 12/24/2018 Ac tive - First Attempt Ref: [id number] metformin 500 mg tablet RxNorm: 309565 TAKE 1 TABLET BY MOUTH DAILY 12/30/2017 02/19/2018 Inactive - First Attempt Ref: [id number] hydrocodone 5 mg-linh taminophen 325 mg tablet RxNorm: 173153 1 Tablet(s) PO Q6-8H as needed 12/25/2017 01/18/2018 Inactive Protonix 40 mg table t,delayed release RxNorm: 592322 Tablet(s) TAKE 1 TABL ET BY MOUTH DAILY 11/20/2017 04/03/2018 Inactive - Ref: [id number] Linzess 72 mcg capsule RxNorm: 9441961 1 Capsule(s) PO daily 11/19/2017 No Stop Date Active hydrocodone 5 mg-linh taminophen 325 mg tablet RxNorm: 728349 1 Tablet(s) PO Q6-8H as needed 11/19/2017 12/13/2017 Inactive hydrocodone 5 mg-linh taminophen 325 mg tablet RxNorm: 490512 1 Tablet(s) PO Q6-8H as needed 10/28/2017 11/18/2017 Inactive Xanax 0.5 mg tablet RxNorm: 588598 1 Tablet(s) PO TID 10/25/2017 12/22/2017 Inactive Xanax 0.5 mg tablet RxNorm: 798701 TAKE ONE TABLET BY MOUTH THREE TIMES A D AY 10/24/2017 12/22/2017 In active hydrocodone 5 mg-linh taminophen 325 mg tablet RxNorm: 256017 1 Tablet(s) PO Q6-8H as needed 09/30/2017 10/24/2017 Inactive Protonix 40 mg table t,delayed release RxNorm: 739002 TAKE 1 TABLET BY MOUT H DAILY 09/16/2017 11/19/2017 In active - Ref: [id number] Yovana SoloStar 300 unit/mL (1.5 mL) subcutaneous insulin pen RxNorm: 8439257 35 Unit(s) SQ QHS 08/30/2017 No Stop Date Active dosage increase hydrocodone 5 mg-linh taminophen 325 mg tablet RxNorm: 567931 1 Tablet(s) PO Q6-8H as needed 08/28/2017 09/29/2017 Inactive hydrocodone 5 mg-linh taminophen 325 mg tablet RxNorm: 042788 1 Tablet(s) PO Q6-8H as needed 07/23/2017 08/24/2017 Inactive lisinopril 10 mg tablet RxNorm: 803600 1 Tablet(s) PO BID Take 1 tablet by mout h daily 07/23/2017 01/13/2018 Inactive hydrocodone 5 mg-linh taminophen 325 mg tablet RxNorm: 327501 1 Tablet(s) PO Q6-8H as needed 06/27/2017 07/22/2017 Inactive Xanax 0.5 mg tablet RxNorm: 689859 1 Tablet(s) PO TID 06/18/2017 10/25/2017 Inactive hydrocodone 5 mg-linh taminophen 325 mg tablet RxNorm: 515676 1 Tablet(s) PO Q6-8H as needed 05/27/2017 06/26/2017 Inactive Levaquin 500 mg tablet RxNorm: 647220 1 Tablet(s) PO daily 05/24/2017 05/23/2017 Inactive Levaquin 500 mg tablet RxNorm: 767610 1 Tablet(s) PO daily 05/24/2017 05/30/2017 Inactive Protonix 40 mg table t,delayed release RxNorm: 007910 Take 1 tablet by mout h daily 04/29/2017 09/15/2017 In active - Ref: [id number] hydrocodone 5 mg-linh taminophen 325 mg tablet RxNorm: 024915 1 Tablet(s) PO Q6-8H as needed 04/25/2017 05/26/2017 Inactive metformin 500 mg tablet RxNorm: 080133 Take 1 tablet by mouth daily 04/08/2017 12/29/2017 Inactive - First Attempt Ref: [id number] hydrocodone 5 mg-linh taminophen 325 mg tablet RxNorm: 869412 1 Tablet(s) PO Q6-8H as needed 03/27/2017 04/24/2017 Inactive hydrocodone 5 mg-linh taminophen 325 mg tablet RxNorm: 313133 1 Tablet(s) PO Q6-8H as needed 02/25/2017 03/26/2017 Inactive Protonix 40 mg table t,delayed release RxNorm: 878826 Tablet(s) Take 1 tabl et by mouth BID 02/25/2017 04/28/2017 Inactive Protonix 40 mg table t,delayed release RxNorm: 931082 Tablet(s) Take 1 tabl et by mouth BID 02/19/2017 02/18/2017 Inactive Protonix 40 mg table t,delayed release RxNorm: 154684 Tablet(s) Take 1 tabl et by mouth BID 02/19/2017 02/24/2017 Inactive lisinopril 10 mg tablet RxNorm: 591002 Take 1 tablet by mouth daily 01/29/2017 07/22/2017 Inactive - First Attempt Ref: [id number] hydrocodone 5 mg-linh taminophen 325 mg tablet RxNorm: 388933 1 Tablet(s) PO Q6-8H as needed 01/25/2017 02/24/2017 Inactive simvastatin 40 mg ta blet RxNorm: 242976 Tablet(s) Take 1 tabl et by mouth daily at bedtime 01/03/2017 12/28/2017 Inactive lisinopril 10 mg tablet RxNorm: 463893 Tablet(s) Take 1 tablet by mouth daily 01/03/2017 01/28/2017 In active Protonix 40 mg table t,delayed release RxNorm: 213827 Tablet(s) Take 1 tabl et by mouth daily 12/28/2016 02/18/2017 Inactive hydrocodone 5 mg-linh taminophen 325 mg tablet RxNorm: 726387 1 Tablet(s) PO Q6-8H as needed 12/26/2016 01/24/2017 Inactive Xanax 0.5 mg tablet RxNorm: 362149 1 Tablet(s) PO TID 12/12/2016 03/11/2017 Inactive simvastatin 40 mg ta blet RxNorm: 619550 Tablet(s) Take 1 tabl et by mouth daily at bedtime 11/30/2016 01/02/2017 Inactive simvastatin 40 mg ta blet RxNorm: 625976 Take 1 tablet by mout h daily at bedtime 11/29/2016 11/29/2016 In active - First Attempt Ref: [id number] Protonix 40 mg table t,delayed release RxNorm: 126059 Take 1 tablet by mout h daily 11/27/2016 12/27/2016 In active - First Attempt Ref: [id number] hydrocodone 5 mg-linh taminophen 325 mg tablet RxNorm: 878112 1 Tablet(s) PO Q6-8H as needed 11/26/2016 12/25/2016 Inactive hydrocodone 5 mg-linh taminophen 325 mg tablet RxNorm: 591444 1 Tablet(s) PO Q8 as needed 10/24/2016 11/25/2016 Inactive Xanax 0.5 mg tablet RxNorm: 732265 1 Tablet(s) PO TID 10/09/2016 12/25/2016 Inactive hydrocodone 5 mg-linh taminophen 325 mg tablet RxNorm: 583353 1 Tablet(s) PO Q8 as needed 09/27/2016 10/23/2016 Inactive lisinopril 10 mg tablet RxNorm: 621551 Take 1 tablet by mouth daily 09/25/2016 01/02/2017 Inactive - First Attempt Ref: [id number] Vitamin D2 50,000 un it capsule RxNorm: 430363 1 Capsule(s) PO QW 09/06/2016 No Stop Date Active hydrocodone 5 mg-linh taminophen 325 mg tablet RxNorm: 746623 1 Tablet(s) PO Q8 as needed 08/28/2016 09/26/2016 Inactive Toujeo SoloStar 300 unit/mL (1.5 mL) subcutaneous insulin pen RxNorm: 1572523 25 Unit(s) SQ QHS 08/23/2016 08/29/2017 Inactive dosage increase hydrocodone 5 mg-linh taminophen 325 mg tablet RxNorm: 139475 1 Tablet(s) PO Q8 as needed 07/26/2016 08/27/2016 Inactive Protonix 40 mg table t,delayed release RxNorm: 125531 Take 1 tablet by mout h daily 07/24/2016 11/26/2016 In active - First Attempt Ref: [id number] hydrocodone 5 mg-linh taminophen 325 mg tablet RxNorm: 626253 1 Tablet(s) PO Q8 as needed 06/19/2016 07/21/2016 Inactive Toujeo SoloStar 300 unit/mL (1.5 mL) subcutaneous insulin pen RxNorm: 3524133 32 Unit(s) SQ QHS 05/30/2016 08/22/2016 Inactive dosage increase hydrocodone 5 mg-linh taminophen 325 mg tablet RxNorm: 579124 1 Tablet(s) PO Q8 as needed 05/22/2016 06/18/2016 Inactive hydrocodone 5 mg-linh taminophen 325 mg tablet RxNorm: 253350 1 Tablet(s) PO Q8 as needed 04/18/2016 05/17/2016 Inactive Protonix 40 mg table t,delayed release RxNorm: 154206 Take 1 tablet by mout h daily 04/05/2016 07/03/2016 In active - Ref: [id number] metformin 500 mg tablet RxNorm: 842785 Take 1 tablet by mouth daily 04/04/2016 07/02/2016 Inactive - Ref: [id number] Xanax 0.5 mg tablet RxNorm: 618040 1 Tablet(s) PO TID 03/30/2016 09/25/2016 Inactive Xanax 0.5 mg tablet RxNorm: 890131 1 Tablet(s) PO TID 03/23/2016 12/25/2016 Inactive hydrocodone 5 mg-linh taminophen 325 mg tablet RxNorm: 959380 1 Tablet(s) PO Q8 as needed 03/06/2016 04/04/2016 Inactive Cipro 500 mg tablet RxNorm: 983610 1 Tablet(s) PO BID 02/24/2016 03/04/2016 Inactive Miralax 17 gram oral powder packet RxNorm: 636732 1 packet PO every oth er day 01/27/2016 No Stop Date Active hydrocodone 5 mg-linh taminophen 325 mg tablet RxNorm: 812447 1 Tablet(s) PO Q8 as needed 01/27/2016 02/25/2016 Inactive lisinopril 10 mg tablet RxNorm: 807107 1 Tablet(s) PO daily 01/12/2016 09/24/2016 Inactive simvastatin 40 mg ta blet RxNorm: 147223 1 Tablet(s) PO QHS 01/12/2016 11/28/2016 Inactive simvastatin 40 mg ta blet RxNorm: 110462 1 Tablet(s) PO QHS 01/11/2016 01/11/2016 Inactive lisinopril 10 mg tablet RxNorm: 250719 1 Tablet(s) PO daily 01/06/2016 01/11/2016 Inactive simvastatin 40 mg ta blet RxNorm: 469116 1 Tablet(s) PO daily 12/28/2015 01/10/2016 Inactive hydrocodone 5 mg-linh taminophen 325 mg tablet RxNorm: 111246 1 Tablet(s) PO Q8 as needed 12/27/2015 01/26/2016 Inactive Xanax 0.5 mg tablet RxNorm: 039068 1 Tablet(s) PO TID 11/30/2015 03/29/2016 Inactive Toujeo SoloStar 300 unit/mL (1.5 mL) subcutaneous insulin pen RxNorm: 5173948 30 Unit(s) SQ QHS 11/25/2015 05/29/2016 Inactive dosage increase meclizine 25 mg tablet RxNorm: 259191 1 Tablet(s) PO Q6 PRN TAKE ONE TABLET BY MOUTH EVERY 6 HOURS NEEDED 11/25/2015 02/22/2016 Inactive omeprazole 20 mg cap jacquelyn,delayed release RxNorm: 180816 1 Capsule(s) PO daily 10/06/2015 01/26/2016 In active Toujeo SoloStar 300 unit/mL (1.5 mL) subcutaneous insulin pen RxNorm: 3077047 35 Unit(s) SQ QHS 08/02/2015 11/24/2015 Inactive dosage increase Vitamin D2 50,000 un it capsule RxNorm: 277534 1 Capsule(s) PO QW 08/02/2015 09/05/2016 Inactive hydrocodone 5 mg-linh taminophen 325 mg tablet RxNorm: 959024 1 Tablet(s) PO Q8 as needed 07/11/2015 12/26/2015 Inactive Xanax 0.5 mg tablet RxNorm: 199676 1 Tablet(s) PO TID 06/30/2015 06/29/2015 Inactive Xanax 0.5 mg tablet RxNorm: 820817 1 Tablet(s) PO TID 06/30/2015 12/25/2015 Inactive hydrocodone 5 mg-linh taminophen 325 mg tablet RxNorm: 531735 1 Tablet(s) PO Q8 as needed 05/06/2015 07/10/2015 Inactive Symbicort 160 mcg-4. 5 mcg/actuation HFA aerosol inhaler RxNorm: 7196060 INH 04/25/2015 No Stop Date Active Levemir FlexTouch 10 0 unit/mL (3 mL) subcutaneous insulin pen RxNorm: 155691 30 Unit(s) SQ QHS 04/25/2015 11/24/2015 Inactive prednisone 20 mg tablet RxNorm: 447114 1 Tablet(s) PO BID 04/25/2015 04/29/2015 Inactive metformin 500 mg tablet RxNorm: 199842 1 Tablet(s) PO daily 04/25/2015 04/03/2016 Inactive amoxicillin 500 mg c apsule RxNorm: 822261 1 Capsule(s) PO TID 04/14/2015 04/13/2015 Inactive amoxicillin 500 mg c apsule RxNorm: 981088 1 Capsule(s) PO TID a nd recommend probiotic tid (otc) 04/14/2015 04/20/2015 Inactive Kenalog 40 mg/mL bartolome pension for injection RxNorm: 0464805 Milliliter(s) Inj 04/12/2015 04/12/2015 In active hydrocodone 5 mg-linh taminophen 325 mg tablet RxNorm: 141830 1 Tablet(s) PO Q8 as needed 03/30/2015 05/05/2015 Inactive Lantus 100 unit/mL s ubcutaneous solution RxNorm: 670191 25 Unit(s) SQ QPM 03/24/2015 04/25/2015 In active meclizine 25 mg tablet RxNorm: 633059 Tablet(s) TAKE ONE TABLET BY MOUTH EVERY 6 HOURS NEEDED 03/08/2015 04/06/2015 Inactive meclizine 25 mg tablet RxNorm: 638033 TAKE ONE TABLET BY MOUTH EVERY 6 HOURS A S NEEDED 02/25/2015 03/03/2015 Inactive Lantus 100 unit/mL s ubcutaneous solution RxNorm: 129034 20 Unit(s) SQ QPM 02/23/2015 03/23/2015 In active Lantus 100 unit/mL s ubcutaneous solution RxNorm: 501435 25 Unit(s) SQ QPM 02/23/2015 02/22/2015 In active hydrocodone 5 mg-linh taminophen 325 mg tablet RxNorm: 125994 1 Tablet(s) PO Q8 as needed 02/17/2015 03/29/2015 Inactive Xanax 0.5 mg tablet RxNorm: 923994 1 Tablet(s) PO TID 02/03/2015 06/29/2015 Inactive Lantus 100 unit/mL s ubcutaneous solution RxNorm: 641652 20 Unit(s) SQ QPM 12/29/2014 02/22/2015 In active Phenergan 12.5 mg re ctal suppository RxNorm: 420860 1 Suppository RTL Q6 PRN 12/23/2014 No Stop Date Active nausea Kenalog 40 mg/mL bartolome pension for injection RxNorm: 3789428 Milliliter(s) Inj 12/23/2014 12/23/2014 In active prednisone 20 mg tablet RxNorm: 726506 2 Tablet(s) PO daily 12/13/2014 12/17/2014 Inactive prednisone 20 mg tablet RxNorm: 009699 2 Tablet(s) PO daily 12/13/2014 12/12/2014 Inactive meclizine 25 mg tablet RxNorm: 789397 1 Tablet(s) PO Q6 PRN 12/09/2014 02/24/2015 Inactive hydrocodone 5 mg-linh taminophen 325 mg tablet RxNorm: 439294 1 Tablet(s) PO Q8 as needed 12/09/2014 02/16/2015 Inactive Vitamin B-12 1,000 m cg/mL oral drops RxNorm: 7986442 1 Milliliter(s) PO d aily No Start Date Active Alphagan P 0.1 % eye drops RxNorm: 066353 1 Drop(s) OPH BID No Start Date Active aspirin 325 mg table t,delayed release RxNorm: 800739 1 Tablet(s) PO daily No Start Date Active Tricor 145 mg tablet RxNorm: 259704 1 Tablet(s) PO daily No Start Date Active vitamin B19-qdzwpre B1 oral liquid RxNorm: 1,000 Microgram(s) PO daily No Start Date Active atenolol 50 mg tablet RxNorm: 253370 1 Tablet(s) PO daily No Start Date Active Protonix 40 mg table t,delayed release RxNorm: 930046 1 Tablet(s) PO daily No Start Date 04/04/2016 Inactive glipizide 10 mg tablet RxNorm: 692706 1 Tablet(s) PO BID No Start Date 03/22/2015 Inactive Lantus 100 unit/mL s ubcutaneous solution RxNorm: 960329 15 Unit(s) SQ QPM No Start Date 12/28/2014 Inactive lisinopril 10 mg tablet RxNorm: 751189 1 Tablet(s) PO daily No Start Date 01/05/2016 Inactive Vitamin D2 50,000 un it capsule RxNorm: 109302 1 Capsule(s) PO QW No Start Date 08/01/2015 Inactive Toujeo SoloStar 300 unit/mL (1.5 mL) subcutaneous insulin pen RxNorm: 7420626 30 Unit(s) SQ QHS No Start Date 08/01/2015 Inactive simvastatin 40 mg ta blet RxNorm: 756043 1 Tablet(s) PO daily No Start Date 12/27/2015 Inactive testosterone cypiona te 200 mg/mL intramuscular oil RxNorm: 500700 1 Milliliter(s) IM monthly No Start Date 01/16/2018 Inactive hydrocodone 5 mg-linh taminophen 325 mg tablet RxNorm: 699502 1 Tablet(s) PO Q8 as needed No Start Date 12/08/2014 Inactive metformin 500 mg tablet RxNorm: 059442 1 Tablet(s) PO daily No Start Date 04/24/2015 Inactive omeprazole 20 mg cap jacquelyn,delayed release RxNorm: 816747 1 Capsule(s) PO daily No Start Date 10/05/2015 Inactive Flomax 0.4 mg capsule RxNorm: 027606 1 Capsule(s) PO daily No Start Date 03/23/2015 Inactive Medication Administered Medication Codes Instruc tions Start Date Status testosterone cypionate 200 mg/mL intramuscular oil RxNorm: 6034008 Milliliter 11/04/2018 Active testosterone cypionate 200 mg/mL intramuscular oil RxNorm: 3462029 Milliliter 10/14/2018 No longer Active testosterone cypionate 200 mg/mL intramuscular oil RxNorm: 8941465 Milliliter 10/03/2018 No longer Active testosterone cypionate 200 mg/mL intramuscular oil RxNorm: 0656643 Milliliter 09/23/2018 No longer Active testosterone cypionate 200 mg/mL intramuscular oil RxNorm: 8297760 /2Milliliter 09/02/2018 No longer Active testosterone enanthate 200 mg/mL intramuscular oil RxNorm: 495692 Milliliter 08/21/2018 No longer Active testosterone cypionate 200 mg/mL intramuscular oil RxNorm: 6696938 Milliliter 08/08/2018 No longer Active testosterone cypionate 200 mg/mL intramuscular oil RxNorm: 8387176 /2Milliliter 07/28/2018 No longer Active testosterone cypionate 200 mg/mL intramuscular oil RxNorm: 026671 Milliliter 07/16/2018 No longer Active testosterone cypionate 200 mg/mL intramuscular oil RxNorm: 046053 Milliliter 07/02/2018 No longer Active testosterone cypionate 200 mg/mL intramuscular oil RxNorm: 528201 Milliliter 06/24/2018 No longer Active testosterone cypionate 200 mg/mL intramuscular oil RxNorm: 791098 Milliliter 06/13/2018 No longer Active testosterone cypionate 200 mg/mL intramuscular oil RxNorm: 548948 Milliliter 06/05/2018 No longer Active testosterone cypionate 200 mg/mL intramuscular oil RxNorm: 161157 Milliliter 05/30/2018 No longer Active testosterone cypionate 200 mg/mL intramuscular oil RxNorm: 720547 Milliliter 05/22/2018 No longer Active testosterone cypionate 200 mg/mL intramuscular oil RxNorm: 349324 /2Milliliter 05/12/2018 No longer Active testosterone cypionate 200 mg/mL intramuscular oil RxNorm: 680881 Milliliter 05/02/2018 No longer Active testosterone cypionate 200 mg/mL intramuscular oil RxNorm: 115113 0.5Milliliter 04/24/2018 No longer Active testosterone cypionate 200 mg/mL intramuscular oil RxNorm: 683905 1/2Milliliter 04/17/2018 No longer Active ketorolac 60 mg/2 mL intramuscular solution RxNorm: 6205146 Milliliter 03/07/2018 No longer Active Kenalog 40 mg/mL suspension for injection RxNorm: 8237924 1.5Milliliter 01/30/2018 No longer Active testosterone cypionate 200 mg/mL intramuscular oil RxNorm: 582847 Milliliter 01/17/2018 No longer Active Kenalog 40 mg/mL suspension for injection RxNorm: 9214078 Milliliter 04/12/2015 No longer Active Kenalog 40 mg/mL suspension for injection RxNorm: 5771472 Milliliter 12/23/2014 No longer Active Immunizations Vaccine Codes Date Status Influenza CVX: 141 06/06 completed Influenza CVX: 141 04/25 completed Pneumococcal (Adult) CVX: 133 04/25/2017 completed Influenza CVX: 141 05/22 completed Assessments Condition Codes Effectiv e Dates Testicular dysfunction, unspecified ICD-10: E29.9 ICD-9: 257.9 11/04/2018 Unsteadiness on feet ICD-10: R26.81 ICD-9: 781.2 [...] Code Item Item Code Result Date Testosterone Svf203 Testo 669.0 ng/dL 09/08/2018 %Hba1C Lwq220 % HbA1c 45254-8 7.4 % 09/08/2018 %Hba1C Fiy219 Gluc Ave 166 mg/dL 09/08/2018 Lipid Ord30 CHOL 114 mg/dL 09/08/2018 Lipid Ord30 HDL 28.0 mg/dl 09/08/2018 Lipid Ord30 TRIG 154 mg/dL 09/08/2018 Lipid Ord30 LDL 55 mg/dL 09/08/2018 Lipid Ord30 C/HDL 4.1 Ratio 09/08/2018 Comp Metabolic Thl702 NA 137 mEq/L 09/08/2018 Comp Metabolic Rxi460 K 4.3 mEq/L 09/08/2018 Comp Metabolic Qwd733 CL 100 mEq/L 09/08/2018 Comp Metabolic Eqt538 CO2 27.0 mEq/L 09/08/2018 Comp Metabolic Nlc830 AN ION GAP 14 09/08/2018 Comp Metabolic Ltz038 GL UCOSE 85 mg/dL 09/08/2018 Comp Metabolic Adl910 Cr eat 1.1 mg/dL 09/08/2018 Comp Metabolic Ifk190 eG FR 70 ml/min/1.73m2 09/08 Comp Metabolic Cza244 BUN 11 mg/dL 09/08/2018 Comp Metabolic Mfp000 B/ C Ratio 10.3 Ratio 09/08/2018 Comp Metabolic Fnc990 CA LCIUM 9.2 mg/dL 09/08/2018 Comp Metabolic Wyn229 AL K PHOS 65 U/L 09/08/2018 Comp Metabolic Ipp234 T(SGOT) 16 U/L 09/08/2018 Comp Metabolic Yna918 AL T(SGPT) 14 U/L 09/08/2018 Comp Metabolic Rkr242 BI LI T 0.6 mg/dL 09/08/2018 Comp Metabolic Aww271 AL BUMIN 4.0 g/dL 09/08/2018 Comp Metabolic Qtt122 TP RO 6.6 g/dL 09/08/2018 Comp Metabolic Lkx302 GL OB 2.6 g/dL 09/08/2018 Comp Metabolic Ajq601 A/ G Ratio 1.6 Ratio 09/08/2018 Comp Metabolic Wpp297 Os mo 272 mOsmo 09/08/2018 Vitamin D 25 Oh Fqt5308 VITAMIN D, 25 HYDROXY 37.17 ng/mL 09/08/2018 [...] 33.3 pg 09/08/2018 Cbc With Differential Ord2 [place]% 8.1 % 09/08/2018 Cbc With Differential Ord2 [...] 2.44 K/ul 09/08/2018 Cbc With Differential Ord2 [place] ABS# 0.6 K/ul 09/08/2018 Cbc With Differential Ord2 Eos ABS# 0.3 K/ul 09/08/2018 Cbc With Differential Ord2 Baso ABS# 0.0 K/ul 09/08/2018 Tsh Ord6 TSH (3rd IS) 2.72 uIU/mL 09/08/2018 Comp Metabolic Kgn355 NA 139 mEq/L 04/01/2018 Comp Metabolic Kkg840 K 4.2 mEq/L 04/01/2018 Comp Metabolic Yub793 CL 102 mEq/L 04/01/2018 Comp Metabolic Ebs262 CO2 29.0 mEq/L 04/01/2018 Comp Metabolic Gnb644 AN ION GAP 12 04/01/2018 Comp Metabolic Rnj425 GL UCOSE 87 mg/dL 04/01/2018 Comp Metabolic Imn243 Cr eat 1.1 mg/dL 04/01/2018 Comp Metabolic Wic069 eG FR 70 ml/min/1.73m2 04/01 Comp Metabolic Dlv607 BUN 21 mg/dL 04/01/2018 Comp Metabolic Gvq169 B/ C Ratio 19.4 Ratio 04/01/2018 Comp Metabolic Vec672 CA LCIUM 9.1 mg/dL 04/01/2018 Comp Metabolic Bkp266 AL K PHOS 60 U/L 04/01/2018 Comp Metabolic Loj867 T(SGOT) 15 U/L 04/01/2018 Comp Metabolic Onf958 AL T(SGPT) 18 U/L 04/01/2018 Comp Metabolic Zpn776 BI LI T 0.4 mg/dL 04/01/2018 Comp Metabolic Esw076 AL BUMIN 4.0 g/dL 04/01/2018 Comp Metabolic Yfu770 TP RO 6.5 g/dL 04/01/2018 Comp Metabolic Hfe796 GL OB 2.5 g/dL 04/01/2018 Comp Metabolic Uej291 A/ G Ratio 1.6 Ratio 04/01/2018 Comp Metabolic Nxc183 Os mo 280 mOsmo 04/01/2018 Lipid Ord30 [...] 34.3 pg 04/01/2018 Cbc With Differential Ord2 [place]% 6.0 % 04/01/2018 Cbc With Differential Ord2 [...] 3.25 K/ul 04/01/2018 Cbc With Differential Ord2 [place] ABS# 0.6 K/ul 04/01/2018 Cbc With Differential Ord2 Eos ABS# 0.4 K/ul 04/01/2018 Cbc With Differential Ord2 Baso ABS# 0.0 K/ul 04/01/2018 %Hba1C Rqh767 % HbA1c 25798-9 8.0 % 04/01/2018 %Hba1C Kla015 Gluc Ave 183 mg/dL 04/01/2018 Testosterone Jey014 Testo 111.3 ng/dL 04/01/2018 Testosterone Oww604 Testo 135.4 ng/dL 01/14/2018 Cbc With Differential [...] 36.0 pg 01/14/2018 Cbc With Differential Ord2 [place]% 6.8 % 01/14/2018 Cbc With Differential Ord2 [...] 2.71 K/ul 01/14/2018 Cbc With Differential Ord2 [place] ABS# 0.8 K/ul 01/14/2018 Cbc With Differential Ord2 Eos ABS# 0.2 K/ul 01/14/2018 Cbc With Differential Ord2 Baso ABS# 0.0 K/ul 01/14/2018 Comp Metabolic Kbp838 NA 134 mEq/L 11/20/2017 Comp Metabolic Aip144 K 4.4 mEq/L 11/20/2017 Comp Metabolic Tga692 CL 99 mEq/L 11/20/2017 Comp Metabolic Cpb743 CO2 29.0 mEq/L 11/20/2017 Comp Metabolic Dwc449 AN ION GAP 10 11/20/2017 Comp Metabolic Hzj214 GL UCOSE 218 mg/dL 11/20/2017 Comp Metabolic Pur910 Cr eat 1.0 mg/dL 11/20/2017 Comp Metabolic Dkf668 eG FR 78 ml/min/1.73m2 11/20 Comp Metabolic Kvl121 BUN 13 mg/dL 11/20/2017 Comp Metabolic Dfu412 B/ C Ratio 13.3 Ratio 11/20/2017 Comp Metabolic Rmg550 CA LCIUM 9.0 mg/dL 11/20/2017 Comp Metabolic Hji511 AL K PHOS 71 U/L 11/20/2017 Comp Metabolic Fmr456 T(SGOT) 18 U/L 11/20/2017 Comp Metabolic Vsf552 AL T(SGPT) 17 U/L 11/20/2017 Comp Metabolic Xau331 BI LI T 0.4 mg/dL 11/20/2017 Comp Metabolic Cqn573 AL BUMIN 4.1 g/dL 11/20/2017 Comp Metabolic Hmj079 TP RO 6.5 g/dL 11/20/2017 Comp Metabolic Seq414 GL OB 2.4 g/dL 11/20/2017 Comp Metabolic Flc469 A/ G Ratio 1.8 Ratio 11/20/2017 Comp Metabolic Wvz339 Os mo 275 mOsmo 11/20/2017 Cbc With [...] 35.2 pg 11/20/2017 Cbc With Differential Ord2 [place]% 7.2 % 11/20/2017 Cbc With Differential Ord2 [...] 3.34 K/ul 11/20/2017 Cbc With Differential Ord2 [place] ABS# 0.6 K/ul 11/20/2017 Cbc With Differential Ord2 Eos ABS# 0.3 K/ul 11/20/2017 Cbc With Differential Ord2 Baso ABS# 0.0 K/ul 11/20/2017 Vitamin D 25 Oh Jnu2050 VITAMIN D, 25 HYDROXY 43.72 ng/mL 11/20/2017 %Hba1C Akq816 % HbA1c 66334-8 7.4 % 11/20/2017 %Hba1C Cyc490 Gluc Ave 166 mg/dL 11/20/2017 %Hba1C Rvh675 % HbA1c 64390-2 7.2 % 08/20/2017 %Hba1C Ysl538 Gluc Ave 160 mg/dL 08/20/2017 Lipid Ord30 [...] 34.7 pg 08/20/2017 Cbc With Differential Ord2 [place]% 7.6 % 08/20/2017 Cbc With Differential Ord2 [...] 2.42 K/ul 08/20/2017 Cbc With Differential Ord2 [place] ABS# 0.6 K/ul 08/20/2017 Cbc With Differential Ord2 Eos ABS# 0.3 K/ul 08/20/2017 Cbc With Differential Ord2 Baso ABS# 0.0 K/ul 08/20/2017 Tsh Ord6 hTSH II 2.27 uIU/mL 08/20/2017 Comp Metabolic Djv741 NA 138 mEq/L 08/20/2017 Comp Metabolic Dtk935 K 4.3 mEq/L 08/20/2017 Comp Metabolic Amy882 CL 102 mEq/L 08/20/2017 Comp Metabolic Hez580 CO2 29.0 mEq/L 08/20/2017 Comp Metabolic Xrz725 AN ION GAP 11 08/20/2017 Comp Metabolic Sdx987 GL UCOSE 89 mg/dL 08/20/2017 Comp Metabolic Czo279 Cr eat 1.0 mg/dL 08/20/2017 Comp Metabolic Rgh184 eG FR 80 ml/min/1.73m2 08/20 Comp Metabolic Gkb785 BUN 13 mg/dL 08/20/2017 Comp Metabolic Oit943 B/ C Ratio 13.5 Ratio 08/20/2017 Comp Metabolic Hgs453 CA LCIUM 9.2 mg/dL 08/20/2017 Comp Metabolic Ypz797 AL K PHOS 69 U/L 08/20/2017 Comp Metabolic Cbr891 T(SGOT) 18 U/L 08/20/2017 Comp Metabolic Jlz285 AL T(SGPT) 19 U/L 08/20/2017 Comp Metabolic Yhn770 BI LI T 0.6 mg/dL 08/20/2017 Comp Metabolic Bau963 AL BUMIN 4.0 g/dL 08/20/2017 Comp Metabolic Hjp735 TP RO 6.6 g/dL 08/20/2017 Comp Metabolic Yys694 GL OB 2.6 g/dL 08/20/2017 Comp Metabolic Hvz790 A/ G Ratio 1.5 Ratio 08/20/2017 Comp Metabolic Eoj375 Os mo 275 mOsmo 08/20/2017 Vitamin D 25 Oh Tyl8994 VITAMIN D, 25 HYDROXY 30.96 ng/mL 08/20/2017 B12 Egy667 B12 >1500.00 pg/ml 02/22/2017 Cbc With Differential [...] 35.7 pg 02/20/2017 Cbc With Differential Ord2 [place]% 6.3 % 02/20/2017 Cbc With Differential Ord2 [...] 3.19 K/ul 02/20/2017 Cbc With Differential Ord2 [place] ABS# 0.5 K/ul 02/20/2017 Cbc With Differential Ord2 Eos ABS# 0.4 K/ul 02/20/2017 Cbc With Differential Ord2 Baso ABS# 0.0 K/ul 02/20/2017 Comp Metabolic Lnf958 NA 138 mEq/L 02/20/2017 Comp Metabolic Wxm131 K 4.5 mEq/L 02/20/2017 Comp Metabolic Scs533 CL 101 mEq/L 02/20/2017 Comp Metabolic Ujt273 CO2 31.0 mEq/L 02/20/2017 Comp Metabolic Pbq751 AN ION GAP 11 02/20/2017 Comp Metabolic Mfa706 GL UCOSE 120 mg/dL 02/20/2017 Comp Metabolic Plr223 Cr eat 0.9 mg/dL 02/20/2017 Comp Metabolic Vui148 eG FR 83 ml/min/1.73m2 02/20 Comp Metabolic Mhs799 BUN 15 mg/dL 02/20/2017 Comp Metabolic Fdw026 B/ C Ratio 16.1 Ratio 02/20/2017 Comp Metabolic Tkt140 CA LCIUM 9.1 mg/dL 02/20/2017 Comp Metabolic Ihy993 AL K PHOS 67 U/L 02/20/2017 Comp Metabolic Iib560 T(SGOT) 15 U/L 02/20/2017 Comp Metabolic Dwk582 AL T(SGPT) 16 U/L 02/20/2017 Comp Metabolic Bxn876 BI LI T 0.5 mg/dL 02/20/2017 Comp Metabolic Vmc862 AL BUMIN 4.0 g/dL 02/20/2017 Comp Metabolic Xkf988 TP RO 6.4 g/dL 02/20/2017 Comp Metabolic Aft592 GL OB 2.4 g/dL 02/20/2017 Comp Metabolic Tpx917 A/ G Ratio 1.7 Ratio 02/20/2017 Comp Metabolic Jrb290 Os mo 278 mOsmo 02/20/2017 Tsh Ord6 hTSH II 2.05 uIU/mL 02/20/2017 %Hba1C Iig015 % HbA1c 85173-7 7.6 % 02/20/2017 %Hba1C Jcf639 Gluc Ave 171 mg/dL 02/20/2017 Vitamin D 25 Oh Rct4506 VITAMIN D, 25 HYDROXY 44.40 ng/mL 12/21/2016 Comp Metabolic Bap856 NA 131 mEq/L 12/21/2016 Comp Metabolic Zie262 K 4.2 mEq/L 12/21/2016 Comp Metabolic Wpj620 CL 97 mEq/L 12/21/2016 Comp Metabolic Hpv428 CO2 27.0 mEq/L 12/21/2016 Comp Metabolic Uov508 AN ION GAP 11 12/21/2016 Comp Metabolic Hxd582 GL UCOSE 266 mg/dL 12/21/2016 Comp Metabolic Ohu795 Cr eat 0.9 mg/dL 12/21/2016 Comp Metabolic Jru024 eG FR 88 ml/min/1.73m2 12/21 Comp Metabolic Wby940 BUN 12 mg/dL 12/21/2016 Comp Metabolic Kch584 B/ C Ratio 13.6 Ratio 12/21/2016 Comp Metabolic Qep892 CA LCIUM 8.6 mg/dL 12/21/2016 Comp Metabolic Wqh938 AL K PHOS 69 U/L 12/21/2016 Comp Metabolic Apl305 T(SGOT) 15 U/L 12/21/2016 Comp Metabolic Wez076 AL T(SGPT) 14 U/L 12/21/2016 Comp Metabolic Vdn444 BI LI T 0.3 mg/dL 12/21/2016 Comp Metabolic Exu389 AL BUMIN 3.7 g/dL 12/21/2016 Comp Metabolic Beg555 TP RO 5.9 g/dL 12/21/2016 Comp Metabolic Ysk466 GL OB 2.2 g/dL 12/21/2016 Comp Metabolic Sub213 A/ G Ratio 1.7 Ratio 12/21/2016 Comp Metabolic Zmg482 Os mo 272 mOsmo 12/21/2016 Cbc With [...] 34.6 pg 12/21/2016 Cbc With Differential Ord2 [place]% 6.9 % 12/21/2016 Cbc With Differential Ord2 [...] 2.05 K/ul 12/21/2016 Cbc With Differential Ord2 [place] ABS# 0.4 K/ul 12/21/2016 Cbc With Differential Ord2 Eos ABS# 0.2 K/ul 12/21/2016 Cbc With Differential Ord2 Baso ABS# 0.0 K/ul 12/21/2016 Comp Metabolic Gro281 NA 138 mEq/L 09/03/2016 Comp Metabolic Opd052 K 4.5 mEq/L 09/03/2016 Comp Metabolic Nme518 CL 102 mEq/L 09/03/2016 Comp Metabolic Lba911 CO2 30.0 mEq/L 09/03/2016 Comp Metabolic Ogg578 AN ION GAP 11 09/03/2016 Comp Metabolic Gwa390 GL UCOSE 113 mg/dL 09/03/2016 Comp Metabolic Imu113 Cr eat 1.0 mg/dL 09/03/2016 Comp Metabolic Rjz007 eG FR 81 ml/min/1.73m2 09/03 Comp Metabolic Ezy555 BUN 10 mg/dL 09/03/2016 Comp Metabolic Cjn029 B/ C Ratio 10.5 Ratio 09/03/2016 Comp Metabolic Pwe101 CA LCIUM 9.1 mg/dL 09/03/2016 Comp Metabolic Bhn033 AL K PHOS 71 U/L 09/03/2016 Comp Metabolic Srt288 T(SGOT) 18 U/L 09/03/2016 Comp Metabolic Ukm473 AL T(SGPT) 17 U/L 09/03/2016 Comp Metabolic Rge179 BI LI T 0.6 mg/dL 09/03/2016 Comp Metabolic Hry277 AL BUMIN 4.1 g/dL 09/03/2016 Comp Metabolic Aoa603 TP RO 6.4 g/dL 09/03/2016 Comp Metabolic Ybx239 GL OB 2.3 g/dL 09/03/2016 Comp Metabolic Lhp287 A/ G Ratio 1.8 Ratio 09/03/2016 Comp Metabolic Zfu793 Os mo 276 mOsmo 09/03/2016 Vitamin D 25 Oh Vnh6243 VITAMIN D, 25 HYDROXY 28.23 ng/mL 09/03/2016 [...] 34.4 pg 09/03/2016 Cbc With Differential Ord2 [place]% 8.9 % 09/03/2016 Cbc With Differential Ord2 [...] 3.34 K/ul 09/03/2016 Cbc With Differential Ord2 [place] ABS# 0.7 K/ul 09/03/2016 Cbc With Differential Ord2 Eos ABS# 0.4 K/ul 09/03/2016 Cbc With Differential Ord2 Baso ABS# 0.0 K/ul 09/03/2016 Lipid Ord30 CHOL 120 mg/dL 09/03/2016 Lipid Ord30 HDL 33.0 mg/dl 09/03/2016 Lipid Ord30 TRIG 161 mg/dL 09/03/2016 Lipid Ord30 LDL 55 mg/dL 09/03/2016 Lipid Ord30 C/HDL 3.6 Ratio 09/03/2016 %Hba1C Nir234 % HbA1c 37924-1 7.5 % 09/03/2016 %Hba1C Ekc260 Gluc Ave 169 mg/dL 09/03/2016 Tsh Ord6 hTSH II 1.50 uIU/mL 05/23/2016 %Hba1C Zbd758 % HbA1c 78786-2 7.6 % 05/23/2016 %Hba1C Hjd783 Gluc Ave 171 mg/dL 05/23/2016 Comp Metabolic Xxv958 NA 135 mEq/L 05/23/2016 Comp Metabolic Ycq186 K 4.4 mEq/L 05/23/2016 Comp Metabolic Jly672 CL 99 mEq/L 05/23/2016 Comp Metabolic Lqy193 CO2 28.0 mEq/L 05/23/2016 Comp Metabolic Cwi172 AN ION GAP 12 05/23/2016 Comp Metabolic Pol002 GL UCOSE 257 mg/dL 05/23/2016 Comp Metabolic Vfs602 Cr eat 0.8 mg/dL 05/23/2016 Comp Metabolic Ser908 eG FR 95 ml/min/1.73m2 05/23 Comp Metabolic Dei601 BUN 11 mg/dL 05/23/2016 Comp Metabolic Xuq008 B/ C Ratio 13.3 Ratio 05/23/2016 Comp Metabolic Sbr324 CA LCIUM 9.0 mg/dL 05/23/2016 Comp Metabolic Vtp851 AL K PHOS 82 U/L 05/23/2016 Comp Metabolic Ifh947 T(SGOT) 21 U/L 05/23/2016 Comp Metabolic Gwy434 AL T(SGPT) 20 U/L 05/23/2016 Comp Metabolic Kos946 BI LI T 0.3 mg/dL 05/23/2016 Comp Metabolic Slo159 AL BUMIN 4.0 g/dL 05/23/2016 Comp Metabolic Njc112 TP RO 6.4 g/dL 05/23/2016 Comp Metabolic Txh630 GL OB 2.4 g/dL 05/23/2016 Comp Metabolic Wze334 A/ G Ratio 1.6 Ratio 05/23/2016 Comp Metabolic Onh627 Os mo 278 mOsmo 05/23/2016 Cbc With [...] 34.5 pg 05/23/2016 Cbc With Differential Ord2 [place]% 6.1 % 05/23/2016 Cbc With Differential Ord2 [...] 2.38 K/ul 05/23/2016 Cbc With Differential Ord2 [place] ABS# 0.4 K/ul 05/23/2016 Cbc With Differential Ord2 Eos ABS# 0.2 K/ul 05/23/2016 Cbc With Differential Ord2 Baso ABS# 0.0 K/ul 05/23/2016 B12 Nbd851 B12 597.00 pg/ml 05/23/2016 Metabolic Ord15 NA [...] 0.92 uIU/mL 07/29/2015 Vitamin D 25 Oh Qpv3962 VITAMIN D, 25 HYDROXY 26.93 ng/mL 07/29/2015 %Hba1C Dtz664 % HbA1c 04038-3 8.8 % 07/29/2015 %Hba1C Qrh096 Gluc Ave 206 mg/dL 07/29/2015 Cbc With [...] Ord2 RDW 14.9 % 07/29/2015 Comp Metabolic Gne594 NA 138 mEq/L 07/29/2015 Comp Metabolic Utm545 K 4.4 mEq/L 07/29/2015 Comp Metabolic Fep271 CL 102 mEq/L 07/29/2015 Comp Metabolic Lqz304 CO2 28.0 mEq/L 07/29/2015 Comp Metabolic Qge422 AN ION GAP 12 07/29/2015 Comp Metabolic Mkd834 GL UCOSE 261 mg/dL 07/29/2015 Comp Metabolic Hnj187 Cr eat 1.0 mg/dL 07/29/2015 Comp Metabolic Fbi027 eG FR 77 ml/min/1.73m2 07/29 Comp Metabolic Ihs949 BUN 13 mg/dL 07/29/2015 Comp Metabolic Kms457 B/ C Ratio 13.0 Ratio 07/29/2015 Comp Metabolic Cvf602 CA LCIUM 9.1 mg/dL 07/29/2015 Comp Metabolic Kpl278 AL K PHOS 64 U/L 07/29/2015 Comp Metabolic Jms419 T(SGOT) 20 U/L 07/29/2015 Comp Metabolic Phq281 AL T(SGPT) 22 U/L 07/29/2015 Comp Metabolic Ybz492 BI LI T 0.4 mg/dL 07/29/2015 Comp Metabolic Hjw306 AL BUMIN 4.0 g/dL 07/29/2015 Comp Metabolic Lsn830 TP RO 6.1 g/dL 07/29/2015 Comp Metabolic Mhg399 GL OB 2.1 g/dL 07/29/2015 Comp Metabolic Fwm852 A/ G Ratio 1.9 Ratio 07/29/2015 Comp Metabolic Kyz792 Os mo 285 mOsmo 07/29/2015 Cbc With [...] Ord2 RDW 13.1 % 05/06/2015 Comp Metabolic Txw980 NA 134 mEq/L 05/06/2015 Comp Metabolic Ypp671 K 4.4 mEq/L 05/06/2015 Comp Metabolic Jcu642 CL 98 mEq/L 05/06/2015 Comp Metabolic Xlt400 CO2 29.0 mEq/L 05/06/2015 Comp Metabolic Djh156 AN ION GAP 11 05/06/2015 Comp Metabolic Ezz745 GL UCOSE 321 mg/dL 05/06/2015 Comp Metabolic Mus832 Cr eat 1.0 mg/dL 05/06/2015 Comp Metabolic Isp772 eG FR 78 ml/min/1.73m2 05/06 Comp Metabolic Fjz836 BUN 20 mg/dL 05/06/2015 Comp Metabolic Xig036 B/ C Ratio 20.4 Ratio 05/06/2015 Comp Metabolic Nma850 CA LCIUM 9.5 mg/dL 05/06/2015 Comp Metabolic Ikm340 AL K PHOS 62 U/L 05/06/2015 Comp Metabolic Dks556 T(SGOT) 21 U/L 05/06/2015 Comp Metabolic Qeg118 AL T(SGPT) 37 U/L 05/06/2015 Comp Metabolic Jzs132 BI LI T 0.4 mg/dL 05/06/2015 Comp Metabolic Wlq094 AL BUMIN 3.8 g/dL 05/06/2015 Comp Metabolic Wep946 TP RO 6.1 g/dL 05/06/2015 Comp Metabolic Jko305 GL OB 2.3 g/dL 05/06/2015 Comp Metabolic Qxe800 A/ G Ratio 1.7 Ratio 05/06/2015 Comp Metabolic Krp077 Os mo 283 mOsmo 05/06/2015 Tsh Ord6 hTSH II 1.65 uIU/mL 02/18/2015 B12 Qej400 B12 605.00 pg/ml 02/18/2015 %Hba1C Uki285 % HbA1c 85971-0 8.3 % 02/18/2015 %Hba1C Dnk810 Gluc Ave 192 mg/dL 02/18/2015 Cbc With [...] Ord2 RDW 13.9 % 02/17/2015 Comp Metabolic Pte836 NA 137 mEq/L 02/17/2015 Comp Metabolic Gbp338 K 4.4 mEq/L 02/17/2015 Comp Metabolic Omh343 CL 100 mEq/L 02/17/2015 Comp Metabolic Hhn418 CO2 31.0 mEq/L 02/17/2015 Comp Metabolic Zwj797 AN ION GAP 10 02/17/2015 Comp Metabolic Ugb545 GL UCOSE 307 mg/dL 02/17/2015 Comp Metabolic Rwn263 Cr eat 1.0 mg/dL 02/17/2015 Comp Metabolic Gzt042 eG FR 74 ml/min/1.73m2 02/17 Comp Metabolic Fcx023 BUN 22 mg/dL 02/17/2015 Comp Metabolic Gxi591 B/ C Ratio 21.4 Ratio 02/17/2015 Comp Metabolic Gfn495 CA LCIUM 9.5 mg/dL 02/17/2015 Comp Metabolic Jsx975 AL K PHOS 78 U/L 02/17/2015 Comp Metabolic Hqf887 T(SGOT) 18 U/L 02/17/2015 Comp Metabolic Tnl076 AL T(SGPT) 32 U/L 02/17/2015 Comp Metabolic Qzj846 BI LI T 0.5 mg/dL 02/17/2015 Comp Metabolic Xwf193 AL BUMIN 4.3 g/dL 02/17/2015 Comp Metabolic Pen424 TP RO 6.7 g/dL 02/17/2015 Comp Metabolic Rge701 GL OB 2.4 g/dL 02/17/2015 Comp Metabolic Ras791 A/ G Ratio 1.8 Ratio 02/17/2015 Comp Metabolic Dcd006 Os mo 289 mOsmo 02/17/2015 Review of [...] gingiva 08/23/2016 None Full Exam - General 1995 Ears/Nose/Throat lips/teeth/gingiva Overall: no masses 08/23/2016 None [...] Procedure Codes Date THER/PROPH/DIAG INJ SC/IM CPT-4: 48890 11/04/2018 THER/PROPH/DIAG INJ SC/IM CPT-4: 54824 10/14/2018 THER/PROPH/DIAG INJ SC/IM CPT-4: 21243 10/03/2018 THER/PROPH/DIAG INJ SC/IM CPT-4: 03695 09/23/2018 THER/PROPH/DIAG INJ SC/IM CPT-4: 58308 09/02/2018 THER/PROPH/DIAG INJ SC/IM CPT-4: 69869 08/21/2018 THER/PROPH/DIAG INJ SC/IM CPT-4: 61254 08/08/2018 THER/PROPH/DIAG INJ SC/IM CPT-4: 47898 07/28/2018 THER/PROPH/DIAG INJ SC/IM CPT-4: 89181 07/16/2018 THER/PROPH/DIAG INJ SC/IM CPT-4: 63288 07/02/2018 PPPS, SUBSEQ VISIT CPT- 4: G0439 06/30/2018 THER/PROPH/DIAG INJ SC/IM CPT-4: 03316 06/24/2018 THER/PROPH/DIAG INJ SC/IM CPT-4: 01899 06/13/2018 ADMIN INFLUENZA VIRU S VAC CPT-4: G0008 06/06/2018 FLU VACC PRSV FREE I NC ANTIG CPT-4: 78642 06/06/2018 THER/PROPH/DIAG INJ SC/IM CPT-4: 95256 06/05/2018 THER/PROPH/DIAG INJ SC/IM CPT-4: 99527 05/30/2018 THER/PROPH/DIAG INJ SC/IM CPT-4: 95353 05/22/2018 THER/PROPH/DIAG INJ SC/IM CPT-4: 68671 05/12/2018 THER/PROPH/DIAG INJ SC/IM CPT-4: 03023 05/02/2018 THER/PROPH/DIAG INJ SC/IM CPT-4: 81020 04/24/2018 THER/PROPH/DIAG INJ SC/IM CPT-4: 52868 04/17/2018 KETOROLAC TROMETHAMI NE INJ CPT-4: J1885 03/07/2018 URINALYSIS NONAUTO W /O SCOPE CPT-4: 81340 03/07/2018 THER/PROPH/DIAG INJ SC/IM CPT-4: 89694 02/20/2018 TRIAMCINOLONE ACET I [place] NOS CPT-4: J3301 01/30/2018 THER/PROPH/DIAG INJ SC/IM CPT-4: 52629 01/17/2018 TOBACCO-USE CHEMIST INTERNSHIP 3-[address]: 632547137 CPT-4: G0436 04/25/2017 ADMIN INFLUENZA VIRU S VAC CPT-4: G0008 04/25/2017 ADMIN PNEUMOCOCCAL V ACCINE SNOMED CT: 60355071 CPT-4: G0009 04/25/2017 PNEUMOCOCCAL VACC [address]: 79308507 CPT-4: 00405 04/25/2017 FLU VACC PRSV FREE I NC ANTIG CPT-4: 08688 04/25/2017 ADMIN INFLUENZA VIRU S VAC CPT-4: G0008 05/22/2016 FLU VACC 4 TELLY 3 YRS PLUS IM Formatting Model/CDA Sections, Assigned to/Angela Clemons SNOMED CT: 71833211 CPT-4: 62237Vczbjni 05/22/2016 TOBACCO-USE CHEMIST INTERNSHIP 3-[address]: 284008792 CPT-4: G0436 11/25/2015 URINALYSIS NONAUTO W /O SCOPE CPT-4: 68604 05/09/2015 TRIAMCINOLONE ACET I [place] NOS CPT-4: J3301 04/12/2015 DESTRUCT PREMALG LESION CPT-4: 83711 03/07/2015 DESTRUCT PREMALG LES 2-14 CPT-4: 94766 03/07/2015 REMOVE IMPACTED EAR WAX UNI CPT-4: 81408 12/31/2014 THER/PROPH/DIAG INJ SC/IM CPT-4: 35458 12/23/2014 TRIAMCINOLONE ACET I [place] NOS CPT-4: J3301 12/23/2014 Vital Signs Date Vital 10/17/2018 Blood Pressure 1: 124/54 Code: 8480-6 BMI: 21.9 Code: 14855-4 Heart Rate 1: 64 bpm Height: 5'11" SpO2: 93% Weight: 157 lbs 09/02/2018 Blood Pressure 1: 140/80 Code: 8480-6 BMI: 21.2 Code: 92803-1 Heart Rate 1: 68 bpm Height: 5'11" SpO2: 97% Weight: 152 lbs 06/30/2018 BMI: 21.8 Code: 60657-8 Height: 5'11" Weight: 156 lbs 06/06/2018 Blood Pressure 1: 128/76 Code: 8480-6 BMI: 22.0 Code: 95841-6 Heart Rate 1: 81 bpm Height: 5'11" SpO2: 92% Weight: 158 lbs 04/04/2018 Blood Pressure 1: 124/70 Code: 8480-6 BMI: 20.8 Code: 75732-9 Heart Rate 1: 65 bpm Height: 5'11" SpO2: 95% Weight: 149 lbs 03/07/2018 Blood Pressure 1: 148/70 Code: 8480-6 BMI: 21.2 Code: 09904-3 Heart Rate 1: 66 bpm Height: 5'11" SpO2: 94% Weight: 152 lbs 02/20/2018 Blood Pressure 1: 134/58 Code: 8480-6 BMI: 20.5 Code: 46148-0 Heart Rate 1: 61 bpm Height: 5'11" SpO2: 92% Weight: 147 lbs 01/30/2018 Blood Pressure 1: 158/68 Code: 8480-6 BMI: 21.5 Code: 02134-8 Heart Rate 1: 71 bpm Height: 5'11" SpO2: 92% Weight: 154 lbs 01/14/2018 Blood Pressure 1: 156/70 Code: 8480-6 Height: Weight: 01/13/2018 Blood Pressure 1: 148/62 Code: 8480-6 BMI: 20.9 Code: 49466-1 Heart Rate 1: 54 bpm Height: 5'11" SpO2: 97% Weight: 150 lbs 11/19/2017 Blood Pressure 1: 150/60 Code: 8480-6 BMI: 21.8 Code: 95852-2 Heart Rate 1: 63 bpm Height: 5'11" SpO2: 98% Weight: 156 lbs 10/02/2017 Blood Pressure 1: 168/60 Code: 8480-6 BMI: 21.9 Code: 78034-2 Heart Rate 1: 52 bpm Height: 5'11" SpO2: 97% Weight: 157 lbs 07/23/2017 Blood Pressure 1: 170/70 Code: 8480-6 BMI: 21.8 Code: 13718-3 Heart Rate 1: 65 bpm Height: 5'11" SpO2: 98% Weight: 156 lbs 04/25/2017 Blood Pressure 1: 138/60 Code: 8480-6 BMI: 21.6 Code: 34129-4 Heart Rate 1: 55 bpm Height: 5'11" SpO2: 93% Weight: 155 lbs 02/19/2017 Blood Pressure 1: 138/64 Code: 8480-6 BMI: 21.3 Code: 38192-1 Heart Rate 1: 52 bpm Height: 5'11" SpO2: 96% Weight: 152 lbs 8 oz 01/21/2017 Blood Pressure 1: 160/68 Code: 8480-6 BMI: 21.3 Code: 18324-9 Heart Rate 1: 62 bpm Height: 5'11" SpO2: 96% Weight: 153 lbs 12/20/2016 Blood Pressure 1: 124/66 Code: 8480-6 BMI: 21.5 Code: 34647-9 Height: 5'11" Weight: 154 lbs 08/23/2016 Blood Pressure 1: 142/52 Code: 8480-6 BMI: 21.2 Code: 29753-6 Heart Rate 1: 54 bpm Height: 5'11" SpO2: 96% Weight: 152 lbs 05/22/2016 Blood Pressure 1: 130/76 Code: 8480-6 BMI: 21.5 Code: 90412-0 Heart Rate 1: 78 bpm Height: 5'11" SpO2: 92% Weight: 154 lbs 02/24/2016 Blood Pressure 1: 128/80 Code: 8480-6 BMI: 21.2 Code: 80113-9 Heart Rate 1: 74 bpm Height: 5'11" SpO2: 96% Weight: 152 lbs 01/27/2016 Blood Pressure 1: 144/60 Code: 8480-6 BMI: 21.2 Code: 31079-5 Heart Rate 1: 74 bpm Height: 5'11" SpO2: 97% Weight: 152 lbs 11/25/2015 Blood Pressure 1: 110/52 Code: 8480-6 BMI: 21.9 Code: 90190-4 Heart Rate 1: 65 bpm Height: 5'11" SpO2: 92% Weight: 157 lbs 07/28/2015 Blood Pressure 1: 138/62 Code: 8480-6 BMI: 21.8 Code: 11638-8 Heart Rate 1: 63 bpm Height: 5'11" SpO2: 91% Weight: 156 lbs 05/26/2015 Blood Pressure 1: 120/58 Code: 8480-6 BMI: 21.5 Code: 51317-0 Heart Rate 1: 99 bpm Height: 5'11" SpO2: 96% Weight: 154 lbs 05/06/2015 Blood Pressure 1: 120/58 Code: 8480-6 BMI: 21.2 Code: 74232-8 Heart Rate 1: 66 bpm Height: 5'11" SpO2: 96% Weight: 152 lbs 04/25/2015 Blood Pressure 1: 136/62 Code: 8480-6 BMI: 21.2 Code: 38299-5 Heart Rate 1: 63 bpm Height: 5'11" SpO2: 97% Weight: 152 lbs 04/12/2015 Blood Pressure 1: 160/58 Code: 8480-6 BMI: 21.6 Code: 60002-5 Heart Rate 1: 62 bpm Height: 5'11" Weight: 155 lbs 03/24/2015 Blood Pressure 1: 138/68 Code: 8480-6 BMI: 22.0 Code: 00925-7 Heart Rate 1: 65 bpm Height: 5'11" SpO2: 96% Weight: 158 lbs 03/07/2015 Blood Pressure 1: 116/52 Code: 8480-6 BMI: 22.2 Code: 29123-3 Heart Rate 1: 64 bpm Height: 5'11" SpO2: 97% Weight: 159 lbs 02/17/2015 Blood Pressure 1: 148/58 Code: 8480-6 BMI: 21.3 Code: 50826-1 Heart Rate 1: 63 bpm Height: 5'11" SpO2: 97% Weight: 153 lbs 12/31/2014 Blood Pressure 1: 100/60 Code: 8480-6 BMI: 21.8 Code: 12459-0 Heart Rate 1: 68 bpm Height: 5'11" Weight: 156 lbs 12/23/2014 Blood Pressure 1: 148/64 Code: 8480-6 BMI: 21.9 Code: 47807-3 Heart Rate 1: 64 bpm Height: 5'11" [...] 06/30/2018 None Annual Medicare Wellness Exam Handgenevieve maguire Stress usually makenzie effectively 06/30/2018 None Annual [...] Encounters Encounter Performer Loca tion Codes Date ([id number]) [id number] EST. [facility] Diagnosis: Orthostatic hypotension[ICD10: I95.1] Diagnosis: Low back pain[ICD10: M54.5] Diagnosis: Unsteadiness on feet[ICD10: R26.81] Karmen Ash MD, [facility] CPT-4: 98176 10/17/2018 [id number]) [id number] EST. [facility] Diagnosis: Essential (primary) hypertension[ICD10: I10] Diagnosis: Chronic obstructive pulmonary disease, unspecified[ICD10: J44.9] Diagnosis: Type 2 diabetes mellitus with hyperglycemia[ICD10: E11.65] Diagnosis: Vitamin D deficiency, unspecified[ICD10: E55.9] Diagnosis: Mixed hyperlipidemia[ICD10: E78.2] Diagnosis: Testicular dysfunction, unspecified[ICD10: E29.9] Karmen Ash MD, [facility] CPT-4: 50060 09/02/2018 [id number]) [id number] EST. [facility] Diagnosis: Cellulitis of face[ICD10: L03.211] Diagnosis: Type 2 diabetes mellitus without complications[ICD10: E11.9] Diagnosis: Essential (primary) hypertension[ICD10: I10] Diagnosis: Encounter for immunization[ICD10: Z23] Karmen Ash MD, [facility] CPT-4: 13198 06/06/2018 ([id number]) [id number] EST. 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 CPT-4: 06013 04/04/2018 ([id number]) 39117 EST. P ATIENT, LEVEL III Diagnosis: Low back pain[ICD10: M54.5] Diagnosis: Dysuria[ICD10: R30.0] Karmen Ash MD, [facility] CPT-4: 18844 03/07/2018 ([id number]) 81024 EST. 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 CPT-4: 80796 02/20/2018 ([id number]) 10125 EST. P ATIENT, LEVEL III Diagnosis: Chronic obstructive pulmonary disease with (acute) exacerbation[ICD10: J44.1] Karmen Ash MD, [facility] CPT-4: 59787 01/30/2018 65539 EST. PATIENT, LEVEL II Diagnosis: Insect bite (nonvenomous), left lower leg, initial encounter[ICD10: S80.862A] Karmen Ash MD, [facility] CPT-4: 79587 01/14/2018 ([id number]) 21439 EST. P ATIENT, LEVEL IV Diagnosis: Type 2 diabetes mellitus with hyperglycemia[ICD10: E11.65] Diagnosis: Chronic obstructive pulmonary disease, unspecified[ICD10: J44.9] Diagnosis: Other fatigue[ICD10: R53.83] Karmen Ash MD, [facility] CPT- 4: 91639 01/13/2018 ([id number]) 70658 EST. P ATIENT, LEVEL IV Diagnosis: Type 2 diabetes mellitus with hyperglycemia[ICD10: E11.65] Diagnosis: Vitamin D deficiency, unspecified[ICD10: E55.9] Diagnosis: Essential (primary) hypertension[ICD10: I10] Diagnosis: Abdominal distension (gaseous)[ICD10: R14.0] Diagnosis: Drug induced constipation[ICD10: K59.03] Karmen Ash MD, [facility] CPT-4: 59888 11/19/2017 02859 EST. PATIENT, LEVEL IV Diagnosis: Low back pain[ICD10: M54.5] Diagnosis: Chronic obstructive pulmonary disease, unspecified[ICD10: J44.9] Brunilda Ash MD, [facility] CPT-4: 94920 10/02/2017 ([id number]) 42658 EST. P ATIENT, LEVEL IV Diagnosis: Essential (primary) hypertension[ICD10: I10] Diagnosis: Type 2 diabetes mellitus with hyperglycemia[ICD10: E11.65] Diagnosis: Vitamin D deficiency, unspecified[ICD10: E55.9] Diagnosis: Mixed hyperlipidemia[ICD10: E78.2] Karmen Ash MD, [facility] CPT-4: 73355 07/23/2017 ([id number]) 19540 EST. P ATIENT, LEVEL IV Diagnosis: Essential (primary) hypertension[ICD10: I10] Diagnosis: Type 2 diabetes mellitus with hyperglycemia[ICD10: E11.65] Diagnosis: Chronic obstructive pulmonary disease, unspecified[ICD10: J44.9] Diagnosis: Nicotine dependence, unspecified, uncomplicated[ICD10: F17.200] Diagnosis: Encounter for immunization[ICD10: Z23] [facility] CPT-4: 38677 04/25/2017 ([id number]) 07574 EST. P ATIENT, LEVEL IV Diagnosis: Type 2 diabetes mellitus with hyperglycemia[ICD10: E11.65] Diagnosis: Essential (primary) hypertension[ICD10: I10] Diagnosis: Anemia, unspecified[ICD10: D64.9] [facility] CPT- 4: 00636 02/19/2017 ([id number]) 90579 EST. P ATIENT, LEVEL IV Diagnosis: Slow transit constipation[ICD10: K59.01] Diagnosis: Gastro-esophageal reflux disease without esophagitis[ICD10: K21.9] Diagnosis: Essential (primary) hypertension[ICD10: I10] Karmen Ash MD, [facility] CPT-4: 72580 01/21/2017 ([id number]) 54198 EST. P ATIENT, LEVEL IV Diagnosis: Type 2 diabetes mellitus with hyperglycemia[ICD10: E11.65] Diagnosis: Vitamin D deficiency, unspecified[ICD10: E55.9] Diagnosis: Essential (primary) hypertension[ICD10: I10] Diagnosis: Chronic obstructive pulmonary disease, unspecified[ICD10: J44.9] Karmen Ash MD, [facility] CPT-4: 91507 12/20/2016 ([id number]) 05608 EST. P ATIENT, LEVEL IV Diagnosis: Type 2 diabetes mellitus with hyperglycemia[ICD10: E11.65] Diagnosis: Essential (primary) hypertension[ICD10: I10] Diagnosis: Mixed hyperlipidemia[ICD10: E78.2] Diagnosis: Vitamin D deficiency, unspecified[ICD10: E55.9] Karmen Ash MD, [facility] CPT-4: 40396 08/23/2016 ([id number]) 80162 EST. P ATIENT, LEVEL IV Diagnosis: Type 2 diabetes mellitus with hyperglycemia[ICD10: E11.65] Diagnosis: Essential (primary) hypertension[ICD10: I10] Diagnosis: Chronic obstructive pulmonary disease, unspecified[ICD10: J44.9] Karmen Ash MD, [facility] CPT-4: 16526 05/22/2016 ([id number]) 23679 EST. P ATIENT, LEVEL III Diagnosis: Dysuria[ICD10: R30.0] Diagnosis: Essential (primary) hypertension[ICD10: I10] Karmen Ash MD, [facility] CPT-4: 52269 02/24/2016 ([id number]) 36981 EST. P ATIENT, LEVEL IV Diagnosis: Gastro-esophageal reflux disease without esophagitis[ICD10: K21.9] Diagnosis: Slow transit constipation[ICD10: K59.01] Diagnosis: Type 2 diabetes mellitus with hyperglycemia[ICD10: E11.65] Karmen Ash MD, [facility] CPT-4: 83702 01/27/2016 ([id number]) 49364 EST. P ATIENT, LEVEL IV Diagnosis: Essential (primary) hypertension[ICD10: I10] Diagnosis: Type 2 diabetes mellitus with hyperglycemia[ICD10: E11.65] Diagnosis: Vitamin D deficiency, unspecified[ICD10: E55.9] Diagnosis: Chronic obstructive pulmonary disease, unspecified[ICD10: J44.9] Diagnosis: Mixed hyperlipidemia[ICD10: E78.2] Diagnosis: Tobacco use[ICD10: Z72.0] Karmen Ash MD, [facility] CPT- 4: 77458 11/25/2015 ([id number]) 31407 EST. P ATIENT, LEVEL IV Diagnosis: Type 2 diabetes mellitus with hyperglycemia[ICD10: E11.65] Diagnosis: Essential (primary) hypertension[ICD10: I10] Diagnosis: Vitamin D deficiency, unspecified[ICD10: E55.9] Karmen Ash MD, [facility] CPT-4: 07158 07/28/2015 ([id number]) 08454 EST. P ATIENT, LEVEL III Diagnosis: Type 2 diabetes mellitus with hyperglycemia[ICD10: E11.65] Diagnosis: Essential (primary) hypertension[ICD10: I10] Violeta Ash MD, [facility] CPT-4: 67729 05/26/2015 ([id number]) 63660 EST. P ATIENT, LEVEL III Diagnosis: DIABETES TYPE II[ICD9: 250.00] Diagnosis: COPD (chronic obstructive pulmonary disease)[ICD9: 496] Diagnosis: ESSENTIAL HYPERTENSION[ICD9: 401.9] Diagnosis: Cough[ICD9: 786.2] Violeta Ash MD, [facility] CPT-4: 10921 05/06/2015 ([id number]) 67448 EST. P ATIENT, LEVEL III Diagnosis: COPD (chronic obstructive pulmonary disease)[ICD9: 496] Diagnosis: DIABETES TYPE II[ICD9: 250.00] Diagnosis: Muscle ache[ICD9: 729.1] Karmen Ash MD, [facility] CPT- 4: 10672 04/25/2015 ([id number]) 80325 EST. P ATIENT, LEVEL III Diagnosis: ACTINIC KERATOSIS[ICD9: 702.0] Diagnosis: COPD (chronic obstructive pulmonary disease)[ICD9: 496] Diagnosis: DIABETES TYPE II[ICD9: 250.00] Diagnosis: ACUTE URI[ICD9: 465.9] Violeta Ash MD, [facility] CPT-4: 64418 04/12/2015 ([id number]) 38734 EST. P ATIENT, LEVEL III Diagnosis: DIABETES TYPE II[ICD9: 250.00] Violeta Ash MD, [facility] CPT-4: 28340 03/24/2015 ([id number]) 66330 EST. P ATIENT, LEVEL IV Diagnosis: DIABETES TYPE II[ICD9: 250.00] Diagnosis: Hypoglycemia[ICD9: 251.2] Diagnosis: Skin texture changes[ICD9: 782.8] Violeta Ash MD, [facility] CPT-4: 93145 03/07/2015 ([id number]) 74962 EST. P ATIENT, LEVEL IV Diagnosis: COPD (chronic obstructive pulmonary disease)[ICD9: 496] Diagnosis: Fatigue[ICD9: 780.79] Diagnosis: Insulin dependent diabetes mellitus[ICD9: 250.00] Diagnosis: Unsteady gait[ICD9: 781.2] Maame Ash MD, [facility] CPT-4: 86958 02/17/2015 ([id number]) 09274 EST. P ATIENT, LEVEL IV Diagnosis: BPPV (benign paroxysmal positional vertigo)[ICD9: 386.11] Diagnosis: Impacted cerumen[ICD9: 380.4] Diagnosis: ESSENTIAL HYPERTENSION[ICD9: 401.9] Diagnosis: Insulin dependent diabetes mellitus[ICD9: 250.00] Karmen Ash MD, [facility] CPT-4: 46656 12/23/2014 ([id number]) [facility] 4 Diagnosis: Insulin dependent diabetes mellitus[ICD9: 250.00] Diagnosis: BPPV (benign paroxysmal positional vertigo)[ICD9: 386.11] Diagnosis: COPD (chronic obstructive pulmonary disease)[ICD9: 496] Diagnosis: Tobacco abuse[ICD9: 305.1] Diagnosis: Osteoarthritis[ICD9: 715.90] [facility] CPT- 4: 03568 12/09/2014 Plan of Care Planned Activity Notes C odes Status Date Patient Education: Patient Medication Summary Completed 11/04/2018 Appointment: [facility] [phone] [phone] (30 min) Complex 10/21/2018 Visit Plan: [...] walker 10/17/2018 Appointment: [facility] [phone] [phone] [place] (30 min) Complex 10/17/2018 Patient Education: Patient [...] to medications. 09/02/2018 Appointment: [facility] [phone] [phone] (15 min) Moderate 09/02/2018 Patient Education: [...] surrogate. 06/30/2018 Appointment: [facility] [phone] [phone] [facility] - Annual Wellness Visit 06/30/2018 Patient [...] pain. 06/06/2018 Appointment: [facility] [phone] [phone] (15 min) Moderate 06/06/2018 Patient Education: [...] months 04/04/2018 Appointment: Karmen Espinal WPtel: [phone] [phone] (15 min) Moderate 04/04/2018 Patient Education: Patient Medication Summary Completed 04/04/2018 Care Plan: Cbc With Differential Pending 04/04/2018 Care Plan: Testosterone repeat in 2 months Pending 04/04/2018 Appointment: Karmen Espinal WPtel: [phone] [phone] [place] (15 min) Moderate 03/25/2018 Visit Plan: Low back pain -history of kidney stone-UA negative today -increase fluids and call if pain does not resolve or if any worse. 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 01/30/2018 Appointment: Karmen Espinal WPtel: [facility] (15 min) Moderate 01/30/2018 Patient Education: Patient Medication Summary Completed 01/30/2018 Appointment: Karmen Espinal WPtel: [address] [place] [address] (15 min) Moderate 01/28/2018 Appointment: Injection 01/17/2018 Patient Education: Patient Medication Summary Completed 01/17/2018 Visit Plan: Cellulitis - start oral antibiotics as directed, return to clinic as previously directed, call for acute change in symptoms, worsening redness, warmth, discharge. 01/14/2018 Appointment: Karmen Espinal WPtel: [address] [place] [address] (10 min) Simple 01/14/2018 Patient Education: Patient [...] controlled. 01/13/2018 Appointment: Karmen Espinal WPtel: [address] [place], [place] [phone] [place] [address] (15 min) Moderate 01/13/2018 Patient Education: Patient Medication Summary Completed 01/13/2018 Referral: Hugo Villatoro HPtel:[phone] Patient's informed. Referral info ned monroy. [...] change in blood pressure readings at home. Tinokzdh-ofbnmp-yjjxs to see Dr Villatoro Constipation-start linzess daily 11/19/2017 Appointment: Karmen Espinal WPtel: [phone] (30 min) Complex 11/19/2017 Patient Education: Patient Medication Summary Completed 11/19/2017 Care Plan: Referral Order bloating, nausea SNOMED-CT : 984959481 Pending 11/19/2017 Visit Plan: Low back pain- [...] changes. 10/02/2017 Appointment: Brunilda Maravilla [facility]el[facility] [phone] [phone] (15 min) Moderate 10/02/2017 Patient Education: [...] controlled. 07/23/2017 Appointment: [facility] Espinal [facility]Ptel[facility] [phone] [phone] (30 min) Complex 07/23/2017 Patient Education: [...] history 04/25/2017 Appointment: [facility]inal [facility] [phone] [phone] (30 min) Complex 04/25/2017 Patient Education: [...] readings are starting to become less controlled. Hgmusr-woalbhm-ydgvj labs 02/19/2017 Appointment: Karm[facility] Espinal [facility]Ptel[facility] [phone] [phone] (30 min) Complex 02/19/2017 Patient Education: [...] 1 month 01/21/2017 Appointment: Karmen Espinal WPtel: [facility]5 [phone] (30 min) Complex 01/21/2017 Patient Education: Patient Medication Summary Completed 01/21/2017 Patient Education: Smoking and Tobacco Addiction Completed 01/21/2017 Patient Education: Hypertension Completed 01/21/2017 Care Plan: Referral Order SNOMED-CT : 608974164 Pending 01/21/2017 Visit Plan: Diabetes Mellitus - [...] Karmen Espinal WPtel: [facility]5 [phone] (30 min) Complex 12/20/2016 Patient Education: Patient Medication Summary Completed 12/20/2016 Patient Education: Smoking and Tobacco Addiction Completed 12/20/2016 Patient Education: Hypertension Completed 12/20/2016 Appointment: Karmen Espinal WPtel: [facility]5 [phone] (30 min) Complex 09/06/2016 Visit [...] level 08/23/2016 Appointment: Karmen Espinal WPtel: [phone] (30 min) [facility] 08/23/2016 Patient Education: Patient Medication Summary [...] changes. 05/22/2016 Appointment: Karmen Espinal WPtel: [phone] (30 min) Complex 05/22/2016 Patient Education: Patient Medication Summary Completed 05/22/2016 Patient Education: Smoking and Tobacco Addiction Completed 05/22/2016 Care Plan: Cbc With Differential Ordered 05/22/2016 Care Plan: %Hba1C KIKI C : 47374-3 Ordered 05/22/2016 Care Plan: Tsh Ordered 05/22/2016 [...] update 02/24/2016 Appointment: [facility] Espinal [facility]el[facility] [phone] [phone] (30 min) Complex 02/24/2016 Patient Education: [...] Karmen Espinal WPtel: [phone] (30 min) Complex 01/27/2016 Patient Education: [...] Completed 05/06/2015 Visit Plan: COPD EXACERBATION - MELT HELPER D is a chronic problem for this [...] POTENTIAL SIDE EFFECTS AND WORSENING OF SYMPTOMS. Raioizag-siwkjiro-WZCI SIMVASTATIN X 2 WEEKS AND CALL WITH [...] Care Plan: COMPLETE CBC AUTOMATED LOINC : 13951-2 Ordered 03/24/2015 Visit Plan: Diabetes Mellitus - [...] Violeta Ash WPtel: [phone] (15 min) Moderate 03/07/2015 Patient Education: [...] The wax was removed by the [facility] ctitioner due to the wax being [...] Care Plan: COMPLETE CBC AUTOMATED LOINC : 59035-0 Ordered 12/23/2014 Visit Plan: BPPV - Benign [...] Karmen Espinal WPtel: [phone] [place] ([place] New Patient 12/09/2014 Patient Education: Patient Medication Summary Completed 12/09/2014 Patient Education: .Amazing charts Parox ysmal positional vertigo Completed 12/09/2014 Patient Education: Smoking and Tobacco Addiction Completed 12/09/2014 Referral: Karrie Villatorott HPtel:[phone] [phone] Referral Appointment Requested Referral: Luis Donohue [...] readings are starting to become less controlled. Lyymdu-fwrtssp-uepkw labs . Cellulitis - start oral antibiotics [...] change in blood pressure readings at home. Xcwuxmqp-oreytg-yojbv to see Dr Villatoro Constipation-start linzess daily [...] POTENTIAL SIDE EFFECTS AND WORSENING OF SYMPTOMS. Hsowuvlf-pcsujhxc-CKWP SIMVASTATIN X 2 WEEKS AND CALL WITH [...]
--- OUTSIDE RECORDS SUMMARY | 2020-03-29 08:53 | XMS REPORT | CCD ---
Author Author Dick Espinal Organization Violeta Ash MD, [facility] Address [address] [place] [address] Phone Care Team Providers Care Credit Manager Name Role Phone PP Unavailable CCM Unavailable Summary Purpose Interface Exchange Insurance Providers Payer name Policy type / Coverage type Covered alliance party ID Effective Begin Date Effective End Date WPS Medicare Part B Medicare Part B [id number] Unknown Unknown [employer] Medicar e Part B [id number] Unknown Unkn own Family history Father Diagnosis Age At Onset Cancer Unknown Mother Diagnosis Age At Onset Cancer Unknown Social History Social History Element Codes Description Effective Dates Marital status Unknown M arried 12/09/2014 Employment Unknown Retir ed 12/09/[address]: 89165046 Currently smokes tobacco 12/09/2014 Number of years using tobacco Unknown > 50 12/09/2014 Number of cigarettes/day Unknown 30 (Pack and a half) 12/09/[address]: 842906910 Never drinks alcohol 12/09/2014 Allergies, Adverse Reactions, [...] ICD-9: 781.2 ICD-10: R26.81 Active 10/17/2018 Unknown Testicular dysfuncti on, unspecified ICD-9: 257.9 [...] feet ICD-9: 781.2 ICD-10: R26.81 10/17/2018 Active Testicular dysfuncti on, unspecified ICD-9: 257.9 [...] cypiona te 200 mg/mL intramuscular oil RxNorm: 9660112 1/2 Milliliter(s) IM [id number] 11/04/2018 03/03/2019 Active nicotine 21 mg/24 hr daily transdermal patch RxNorm: 529643 1 TD daily 10/31/2018 11/29/2018 Ac tive nicotine 21 mg/24 hr daily transdermal patch RxNorm: 428352 1 TD daily 10/31/2018 10/30/2018 In active meclizine 25 mg tablet RxNorm: 916836 1 Tablet(s) PO Q6 PRN TAKE ONE TABLET BY MOUTH EVERY 6 HOURS NEEDED 10/17/2018 01/14/2019 Active hydrocodone 5 mg-linh taminophen 325 mg tablet RxNorm: 598980 1 Tablet(s) PO Q6-8H as needed 10/17/2018 11/10/2018 Active metformin 500 mg tablet RxNorm: 777430 Tablet(s) TAKE 1 TABLET BY MOUTH DAILY 10/15/2018 10/09/2019 Ac tive lisinopril 10 mg tablet RxNorm: 997747 TAKE 1 TABLET BY MOUTH TWO TIMES DAILY 10/15/2018 10/09/2019 Ac tive - First Attempt Ref: [id number] testosterone cypiona te 200 mg/mL intramuscular oil RxNorm: 9773867 Milliliter(s) IM 10/14/2018 10/14/2018 In active Xanax 0.5 mg tablet RxNorm: 241251 1 Tablet(s) PO TID 10/03/2018 11/30/2018 Active testosterone cypiona te 200 mg/mL intramuscular oil RxNorm: 9479791 1/2 Milliliter(s) IM weekly 10/03/2018 11/03/2018 Inactive testosterone cypiona te 200 mg/mL intramuscular oil RxNorm: 9153810 Milliliter(s) IM 10/03/2018 10/03/2018 In active testosterone cypiona te 200 mg/mL intramuscular oil RxNorm: 7535637 Milliliter(s) IM 09/23/2018 09/23/2018 In active hydrocodone 5 mg-linh taminophen 325 mg tablet RxNorm: 221739 1 Tablet(s) PO Q6-8H as needed 09/22/2018 10/16/2018 Inactive testosterone cypiona te 200 mg/mL intramuscular oil RxNorm: 3290438 1/2 Milliliter(s) IM 09/02/2018 09/02/2018 Inactive testosterone enantha te 200 mg/mL intramuscular oil RxNorm: 965202 Milliliter(s) IM 08/21/2018 08/21/2018 In active hydrocodone 5 mg-linh taminophen 325 mg tablet RxNorm: 865711 1 Tablet(s) PO Q6-8H as needed 08/21/2018 09/14/2018 Inactive testosterone cypiona te 200 mg/mL intramuscular oil RxNorm: 0688529 Milliliter(s) IM 08/08/2018 08/08/2018 In active testosterone cypiona te 200 mg/mL intramuscular oil RxNorm: 6668794 1/2 Milliliter(s) IM 07/28/2018 07/28/2018 Inactive hydrocodone 5 mg-linh taminophen 325 mg tablet RxNorm: 121906 1 Tablet(s) PO Q6-8H as needed 07/21/2018 08/14/2018 Inactive testosterone cypiona te 200 mg/mL intramuscular oil RxNorm: 852321 Milliliter(s) IM 07/16/2018 07/16/2018 In active testosterone cypiona te 200 mg/mL intramuscular oil RxNorm: 852088 Milliliter(s) IM 07/02/2018 07/02/2018 In active Xanax 0.5 mg tablet RxNorm: 667646 1 Tablet(s) PO TID 06/27/2018 08/24/2018 Inactive testosterone cypiona te 200 mg/mL intramuscular oil RxNorm: 050758 Milliliter(s) IM 06/24/2018 06/24/2018 In active hydrocodone 5 mg-linh taminophen 325 mg tablet RxNorm: 735411 1 Tablet(s) PO Q6-8H as needed 06/23/2018 07/17/2018 Inactive testosterone cypiona te 200 mg/mL intramuscular oil RxNorm: 497344 Milliliter(s) IM 06/13/2018 06/13/2018 In active testosterone cypiona te 200 mg/mL intramuscular oil RxNorm: 210704 Milliliter(s) IM 06/05/2018 06/05/2018 In active testosterone cypiona te 200 mg/mL intramuscular oil RxNorm: 9972319 1/2 Milliliter(s) IM weekly 05/30/2018 09/26/2018 Inactive testosterone cypiona te 200 mg/mL intramuscular oil RxNorm: 953110 Milliliter(s) IM 05/30/2018 05/30/2018 In active testosterone cypiona te 200 mg/mL intramuscular oil RxNorm: 789445 Milliliter(s) IM 05/22/2018 05/22/2018 In active hydrocodone 5 mg-linh taminophen 325 mg tablet RxNorm: 460917 1 Tablet(s) PO Q6-8H as needed 05/20/2018 06/13/2018 Inactive testosterone cypiona te 200 mg/mL intramuscular oil RxNorm: 973747 1/2 Milliliter(s) IM 05/12/2018 05/12/2018 Inactive testosterone cypiona te 200 mg/mL intramuscular oil RxNorm: 910836 Milliliter(s) IM 05/02/2018 05/02/2018 In active testosterone cypiona te 200 mg/mL intramuscular oil RxNorm: 045548 1/2 Milliliter(s) IM weekly 04/24/2018 05/29/2018 Inactive testosterone cypiona te 200 mg/mL intramuscular oil RxNorm: 954627 0.5 Milliliter(s) IM 04/24/2018 04/24/2018 Inactive hydrocodone 5 mg-linh taminophen 325 mg tablet RxNorm: 160286 1 Tablet(s) PO Q6-8H as needed 04/22/2018 05/16/2018 Inactive testosterone cypiona te 200 mg/mL intramuscular oil RxNorm: 674509 1/2 Milliliter(s) IM 04/17/2018 04/17/2018 Inactive testosterone cypiona te 200 mg/mL intramuscular oil RxNorm: 937783 1/2 Milliliter(s) IM weekly 04/16/2018 04/23/2018 Inactive Jardiance 10 mg tablet RxNorm: 3346420 1 Tablet(s) PO daily 04/04/2018 12/29/2018 Active Protonix 40 mg table t,delayed release RxNorm: 857518 1 Tablet(s) PO daily TAKE 1 TABLET BY MOUTH DAILY 04/04/2018 03/29/2019 Active - Ref: [id number] testosterone cypiona te 200 mg/mL intramuscular oil RxNorm: 842699 1 Milliliter(s) IM monthly 04/04/2018 04/15/2018 Inactive hydrocodone 5 mg-linh taminophen 325 mg tablet RxNorm: 339998 1 Tablet(s) PO Q6-8H as needed 03/19/2018 04/12/2018 Inactive Flomax 0.4 mg capsule RxNorm: 380565 1 Capsule(s) PO daily 03/10/2018 03/04/2019 Active Urecholine 25 mg tablet RxNorm: 048897 1 Tablet(s) PO BID 03/10/2018 07/07/2018 Inactive ketorolac 60 mg/2 mL intramuscular solution RxNorm: 5472904 Milliliter(s) IM 03/07/2018 03/07/2018 In active metformin 500 mg tablet RxNorm: 245799 Tablet(s) TAKE 1 TABLET BY MOUTH DAILY 02/20/2018 02/13/2019 Ac tive 1 q am and 1/2 tab q pm hydrocodone 5 mg-linh taminophen 325 mg tablet RxNorm: 346120 1 Tablet(s) PO Q6-8H as needed 02/20/2018 03/16/2018 Inactive Kenalog 40 mg/mL bartolome pension for injection RxNorm: 3612045 1.5 Milliliter(s) In j 01/30/2018 01/30/2018 In active hydrocodone 5 mg-linh taminophen 325 mg tablet RxNorm: 721153 1 Tablet(s) PO Q6-8H as needed 01/23/2018 02/16/2018 Inactive Urecholine 25 mg tablet RxNorm: 297720 1 Tablet(s) PO BID 01/22/2018 03/09/2018 Inactive Flomax 0.4 mg capsule RxNorm: 175685 1 Capsule(s) PO daily 01/22/2018 03/09/2018 Inactive Flomax 0.4 mg capsule RxNorm: 469451 1 Capsule(s) PO daily 01/22/2018 01/21/2018 Inactive Urecholine 25 mg tablet RxNorm: 250187 1 Tablet(s) PO BID 01/22/2018 01/21/2018 Inactive testosterone cypiona te 200 mg/mL intramuscular oil RxNorm: 061395 Milliliter(s) IM 01/17/2018 01/17/2018 In active testosterone cypiona te 200 mg/mL intramuscular oil RxNorm: 342260 1 Milliliter(s) IM monthly 01/17/2018 04/03/2018 Inactive doxycycline hyclate 100 mg tablet RxNorm: 786028 1 Tablet(s) PO BID 01/14/2018 01/23/2018 Inactive lisinopril 10 mg tablet RxNorm: 680157 TAKE 1 TABLET BY MOUTH TWO TIMES DAILY 01/14/2018 10/14/2018 In active - First Attempt Ref: [id number] Xanax 0.5 mg tablet RxNorm: 709927 1 Tablet(s) PO TID 01/08/2018 04/06/2018 Inactive nystatin 100,000 uni t/mL oral suspension RxNorm: 893270 4 Milliliter(s) PO QI D Swish and swallow 01/08/2018 01/07/2018 Inactive nystatin 100,000 uni t/mL oral suspension RxNorm: 934891 4 Milliliter(s) PO QI D Swish and swallow 01/08/2018 01/12/2018 Inactive simvastatin 40 mg ta blet RxNorm: 101737 TAKE 1 TABLET BY MOUT H DAILY AT BEDTIME 12/30/2017 12/24/2018 Ac tive - First Attempt Ref: [id number] metformin 500 mg tablet RxNorm: 356001 TAKE 1 TABLET BY MOUTH DAILY 12/30/2017 02/19/2018 Inactive - First Attempt Ref: [id number] hydrocodone 5 mg-linh taminophen 325 mg tablet RxNorm: 034501 1 Tablet(s) PO Q6-8H as needed 12/25/2017 01/18/2018 Inactive Protonix 40 mg table t,delayed release RxNorm: 729593 Tablet(s) TAKE 1 TABL ET BY MOUTH DAILY 11/20/2017 04/03/2018 Inactive - Ref: [id number] Linzess 72 mcg capsule RxNorm: 0718576 1 Capsule(s) PO daily 11/19/2017 No Stop Date Active hydrocodone 5 mg-linh taminophen 325 mg tablet RxNorm: 952378 1 Tablet(s) PO Q6-8H as needed 11/19/2017 12/13/2017 Inactive hydrocodone 5 mg-linh taminophen 325 mg tablet RxNorm: 038391 1 Tablet(s) PO Q6-8H as needed 10/28/2017 11/18/2017 Inactive Xanax 0.5 mg tablet RxNorm: 356505 1 Tablet(s) PO TID 10/25/2017 12/22/2017 Inactive Xanax 0.5 mg tablet RxNorm: 671619 TAKE ONE TABLET BY MOUTH THREE TIMES A D AY 10/24/2017 12/22/2017 In active hydrocodone 5 mg-linh taminophen 325 mg tablet RxNorm: 005089 1 Tablet(s) PO Q6-8H as needed 09/30/2017 10/24/2017 Inactive Protonix 40 mg table t,delayed release RxNorm: 901972 TAKE 1 TABLET BY MOUT H DAILY 09/16/2017 11/19/2017 In active - Ref: [id number] Touparadiseo SoloStar 300 unit/mL (1.5 mL) subcutaneous insulin pen RxNorm: 7002814 35 Unit(s) SQ QHS 08/30/2017 No Stop Date Active dosage increase hydrocodone 5 mg-linh taminophen 325 mg tablet RxNorm: 512087 1 Tablet(s) PO Q6-8H as needed 08/28/2017 09/29/2017 Inactive hydrocodone 5 mg-linh taminophen 325 mg tablet RxNorm: 272422 1 Tablet(s) PO Q6-8H as needed 07/23/2017 08/24/2017 Inactive lisinopril 10 mg tablet RxNorm: 757939 1 Tablet(s) PO BID Take 1 tablet by mout h daily 07/23/2017 01/13/2018 Inactive hydrocodone 5 mg-linh taminophen 325 mg tablet RxNorm: 827916 1 Tablet(s) PO Q6-8H as needed 06/27/2017 07/22/2017 Inactive Xanax 0.5 mg tablet RxNorm: 579864 1 Tablet(s) PO TID 06/18/2017 10/25/2017 Inactive hydrocodone 5 mg-linh taminophen 325 mg tablet RxNorm: 374047 1 Tablet(s) PO Q6-8H as needed 05/27/2017 06/26/2017 Inactive Levaquin 500 mg tablet RxNorm: 529800 1 Tablet(s) PO daily 05/24/2017 05/23/2017 Inactive Levaquin 500 mg tablet RxNorm: 081801 1 Tablet(s) PO daily 05/24/2017 05/30/2017 Inactive Protonix 40 mg table t,delayed release RxNorm: 932025 Take 1 tablet by mout h daily 04/29/2017 09/15/2017 In active - Ref: [id number] hydrocodone 5 mg-linh taminophen 325 mg tablet RxNorm: 920835 1 Tablet(s) PO Q6-8H as needed 04/25/2017 05/26/2017 Inactive metformin 500 mg tablet RxNorm: 021519 Take 1 tablet by mouth daily 04/08/2017 12/29/2017 Inactive - First Attempt Ref: [id number] hydrocodone 5 mg-linh taminophen 325 mg tablet RxNorm: 874857 1 Tablet(s) PO Q6-8H as needed 03/27/2017 04/24/2017 Inactive hydrocodone 5 mg-linh taminophen 325 mg tablet RxNorm: 848295 1 Tablet(s) PO Q6-8H as needed 02/25/2017 03/26/2017 Inactive Protonix 40 mg table t,delayed release RxNorm: 620682 Tablet(s) Take 1 tabl et by mouth BID 02/25/2017 04/28/2017 Inactive Protonix 40 mg table t,delayed release RxNorm: 535051 Tablet(s) Take 1 tabl et by mouth BID 02/19/2017 02/18/2017 Inactive Protonix 40 mg table t,delayed release RxNorm: 889795 Tablet(s) Take 1 tabl et by mouth BID 02/19/2017 02/24/2017 Inactive lisinopril 10 mg tablet RxNorm: 452922 Take 1 tablet by mouth daily 01/29/2017 07/22/2017 Inactive - First Attempt Ref: [id number] hydrocodone 5 mg-linh taminophen 325 mg tablet RxNorm: 628469 1 Tablet(s) PO Q6-8H as needed 01/25/2017 02/24/2017 Inactive simvastatin 40 mg ta blet RxNorm: 806763 Tablet(s) Take 1 tabl et by mouth daily at bedtime 01/03/2017 12/28/2017 Inactive lisinopril 10 mg tablet RxNorm: 787854 Tablet(s) Take 1 tablet by mouth daily 01/03/2017 01/28/2017 In active Protonix 40 mg table t,delayed release RxNorm: 963510 Tablet(s) Take 1 tabl et by mouth daily 12/28/2016 02/18/2017 Inactive hydrocodone 5 mg-linh taminophen 325 mg tablet RxNorm: 493900 1 Tablet(s) PO Q6-8H as needed 12/26/2016 01/24/2017 Inactive Xanax 0.5 mg tablet RxNorm: 517233 1 Tablet(s) PO TID 12/12/2016 03/11/2017 Inactive simvastatin 40 mg ta blet RxNorm: 629595 Tablet(s) Take 1 tabl et by mouth daily at bedtime 11/30/2016 01/02/2017 Inactive simvastatin 40 mg ta blet RxNorm: 312341 Take 1 tablet by mout h daily at bedtime 11/29/2016 11/29/2016 In active - First Attempt Ref: [id number] Protonix 40 mg table t,delayed release RxNorm: 386961 Take 1 tablet by mout h daily 11/27/2016 12/27/2016 In active - First Attempt Ref: [id number] hydrocodone 5 mg-linh taminophen 325 mg tablet RxNorm: 447244 1 Tablet(s) PO Q6-8H as needed 11/26/2016 12/25/2016 Inactive hydrocodone 5 mg-linh taminophen 325 mg tablet RxNorm: 152202 1 Tablet(s) PO Q8 as needed 10/24/2016 11/25/2016 Inactive Xanax 0.5 mg tablet RxNorm: 773833 1 Tablet(s) PO TID 10/09/2016 12/25/2016 Inactive hydrocodone 5 mg-linh taminophen 325 mg tablet RxNorm: 828198 1 Tablet(s) PO Q8 as needed 09/27/2016 10/23/2016 Inactive lisinopril 10 mg tablet RxNorm: 046014 Take 1 tablet by mouth daily 09/25/2016 01/02/2017 Inactive - First Attempt Ref: [id number] Vitamin D2 50,000 un it capsule RxNorm: 653701 1 Capsule(s) PO QW 09/06/2016 No Stop Date Active hydrocodone 5 mg-linh taminophen 325 mg tablet RxNorm: 802823 1 Tablet(s) PO Q8 as needed 08/28/2016 09/26/2016 Inactive Toujeo SoloStar 300 unit/mL (1.5 mL) subcutaneous insulin pen RxNorm: 1520108 25 Unit(s) SQ QHS 08/23/2016 08/29/2017 Inactive dosage increase hydrocodone 5 mg-linh taminophen 325 mg tablet RxNorm: 799685 1 Tablet(s) PO Q8 as needed 07/26/2016 08/27/2016 Inactive Protonix 40 mg table t,delayed release RxNorm: 831337 Take 1 tablet by mout h daily 07/24/2016 11/26/2016 In active - First Attempt Ref: [id number] hydrocodone 5 mg-linh taminophen 325 mg tablet RxNorm: 815836 1 Tablet(s) PO Q8 as needed 06/19/2016 07/21/2016 Inactive Toujeo SoloStar 300 unit/mL (1.5 mL) subcutaneous insulin pen RxNorm: 9923824 32 Unit(s) SQ QHS 05/30/2016 08/22/2016 Inactive dosage increase hydrocodone 5 mg-linh taminophen 325 mg tablet RxNorm: 978344 1 Tablet(s) PO Q8 as needed 05/22/2016 06/18/2016 Inactive hydrocodone 5 mg-linh taminophen 325 mg tablet RxNorm: 077402 1 Tablet(s) PO Q8 as needed 04/18/2016 05/17/2016 Inactive Protonix 40 mg table t,delayed release RxNorm: 326721 Take 1 tablet by mout h daily 04/05/2016 07/03/2016 In active - Ref: [id number] metformin 500 mg tablet RxNorm: 498576 Take 1 tablet by mouth daily 04/04/2016 07/02/2016 Inactive - Ref: [id number] Xanax 0.5 mg tablet RxNorm: 720162 1 Tablet(s) PO TID 03/30/2016 09/25/2016 Inactive Xanax 0.5 mg tablet RxNorm: 685679 1 Tablet(s) PO TID 03/23/2016 12/25/2016 Inactive hydrocodone 5 mg-linh taminophen 325 mg tablet RxNorm: 283418 1 Tablet(s) PO Q8 as needed 03/06/2016 04/04/2016 Inactive Cipro 500 mg tablet RxNorm: 161588 1 Tablet(s) PO BID 02/24/2016 03/04/2016 Inactive Miralax 17 gram oral powder packet RxNorm: 196278 1 packet PO every oth er day 01/27/2016 No Stop Date Active hydrocodone 5 mg-linh taminophen 325 mg tablet RxNorm: 702830 1 Tablet(s) PO Q8 as needed 01/27/2016 02/25/2016 Inactive lisinopril 10 mg tablet RxNorm: 338825 1 Tablet(s) PO daily 01/12/2016 09/24/2016 Inactive simvastatin 40 mg ta blet RxNorm: 660054 1 Tablet(s) PO QHS 01/12/2016 11/28/2016 Inactive simvastatin 40 mg ta blet RxNorm: 649079 1 Tablet(s) PO QHS 01/11/2016 01/11/2016 Inactive lisinopril 10 mg tablet RxNorm: 653508 1 Tablet(s) PO daily 01/06/2016 01/11/2016 Inactive simvastatin 40 mg ta blet RxNorm: 454257 1 Tablet(s) PO daily 12/28/2015 01/10/2016 Inactive hydrocodone 5 mg-linh taminophen 325 mg tablet RxNorm: 538806 1 Tablet(s) PO Q8 as needed 12/27/2015 01/26/2016 Inactive Xanax 0.5 mg tablet RxNorm: 258579 1 Tablet(s) PO TID 11/30/2015 03/29/2016 Inactive Toujeo SoloStar 300 unit/mL (1.5 mL) subcutaneous insulin pen RxNorm: 2368146 30 Unit(s) SQ QHS 11/25/2015 05/29/2016 Inactive dosage increase meclizine 25 mg tablet RxNorm: 413113 1 Tablet(s) PO Q6 PRN TAKE ONE TABLET BY MOUTH EVERY 6 HOURS NEEDED 11/25/2015 02/22/2016 Inactive omeprazole 20 mg cap jacquelyn,delayed release RxNorm: 232376 1 Capsule(s) PO daily 10/06/2015 01/26/2016 In active Toujeo SoloStar 300 unit/mL (1.5 mL) subcutaneous insulin pen RxNorm: 3462051 35 Unit(s) SQ QHS 08/02/2015 11/24/2015 Inactive dosage increase Vitamin D2 50,000 un it capsule RxNorm: 576766 1 Capsule(s) PO QW 08/02/2015 09/05/2016 Inactive hydrocodone 5 mg-linh taminophen 325 mg tablet RxNorm: 789793 1 Tablet(s) PO Q8 as needed 07/11/2015 12/26/2015 Inactive Xanax 0.5 mg tablet RxNorm: 754626 1 Tablet(s) PO TID 06/30/2015 06/29/2015 Inactive Xanax 0.5 mg tablet RxNorm: 357435 1 Tablet(s) PO TID 06/30/2015 12/25/2015 Inactive hydrocodone 5 mg-linh taminophen 325 mg tablet RxNorm: 747865 1 Tablet(s) PO Q8 as needed 05/06/2015 07/10/2015 Inactive Symbicort 160 mcg-4. 5 mcg/actuation HFA aerosol inhaler RxNorm: 0184297 INH 04/25/2015 No Stop Date Active Levemir FlexTouch 10 0 unit/mL (3 mL) subcutaneous insulin pen RxNorm: 011801 30 Unit(s) SQ QHS 04/25/2015 11/24/2015 Inactive prednisone 20 mg tablet RxNorm: 704489 1 Tablet(s) PO BID 04/25/2015 04/29/2015 Inactive metformin 500 mg tablet RxNorm: 223551 1 Tablet(s) PO daily 04/25/2015 04/03/2016 Inactive amoxicillin 500 mg c apsule RxNorm: 311296 1 Capsule(s) PO TID 04/14/2015 04/13/2015 Inactive amoxicillin 500 mg c apsule RxNorm: 632171 1 Capsule(s) PO TID a nd recommend probiotic tid (otc) 04/14/2015 04/20/2015 Inactive Kenalog 40 mg/mL bartolome pension for injection RxNorm: 7930593 Milliliter(s) Inj 04/12/2015 04/12/2015 In active hydrocodone 5 mg-linh taminophen 325 mg tablet RxNorm: 767188 1 Tablet(s) PO Q8 as needed 03/30/2015 05/05/2015 Inactive Lantus 100 unit/mL s ubcutaneous solution RxNorm: 990773 25 Unit(s) SQ QPM 03/24/2015 04/25/2015 In active meclizine 25 mg tablet RxNorm: 990494 Tablet(s) TAKE ONE TABLET BY MOUTH EVERY 6 HOURS NEEDED 03/08/2015 04/06/2015 Inactive meclizine 25 mg tablet RxNorm: 260057 TAKE ONE TABLET BY MOUTH EVERY 6 HOURS A S NEEDED 02/25/2015 03/03/2015 Inactive Lantus 100 unit/mL s ubcutaneous solution RxNorm: 865126 20 Unit(s) SQ QPM 02/23/2015 03/23/2015 In active Lantus 100 unit/mL s ubcutaneous solution RxNorm: 740354 25 Unit(s) SQ QPM 02/23/2015 02/22/2015 In active hydrocodone 5 mg-linh taminophen 325 mg tablet RxNorm: 400415 1 Tablet(s) PO Q8 as needed 02/17/2015 03/29/2015 Inactive Xanax 0.5 mg tablet RxNorm: 261284 1 Tablet(s) PO TID 02/03/2015 06/29/2015 Inactive Lantus 100 unit/mL s ubcutaneous solution RxNorm: 731255 20 Unit(s) SQ QPM 12/29/2014 02/22/2015 In active Phenergan 12.5 mg re ctal suppository RxNorm: 878279 1 Suppository RTL Q6 PRN 12/23/2014 No Stop Date Active nausea Kenalog 40 mg/mL bartolome pension for injection RxNorm: 9283572 Milliliter(s) Inj 12/23/2014 12/23/2014 In active prednisone 20 mg tablet RxNorm: 851156 2 Tablet(s) PO daily 12/13/2014 12/17/2014 Inactive prednisone 20 mg tablet RxNorm: 835386 2 Tablet(s) PO daily 12/13/2014 12/12/2014 Inactive meclizine 25 mg tablet RxNorm: 707908 1 Tablet(s) PO Q6 PRN 12/09/2014 02/24/2015 Inactive hydrocodone 5 mg-linh taminophen 325 mg tablet RxNorm: 404497 1 Tablet(s) PO Q8 as needed 12/09/2014 02/16/2015 Inactive Vitamin B-12 1,000 m cg/mL oral drops RxNorm: 7896169 1 Milliliter(s) PO d aily No Start Date Active Alphagan P 0.1 % eye drops RxNorm: 815952 1 Drop(s) OPH BID No Start Date Active aspirin 325 mg table t,delayed release RxNorm: 289605 1 Tablet(s) PO daily No Start Date Active Tricor 145 mg tablet RxNorm: 313658 1 Tablet(s) PO daily No Start Date Active vitamin [id number]-csrozso B1 oral liquid RxNorm: 1,000 Microgram(s) PO daily No Start Date Active atenolol 50 mg tablet RxNorm: 308806 1 Tablet(s) PO daily No Start Date Active Protonix 40 mg table t,delayed release RxNorm: 210800 1 Tablet(s) PO daily No Start Date 04/04/2016 Inactive glipizide 10 mg tablet RxNorm: 912159 1 Tablet(s) PO BID No Start Date 03/22/2015 Inactive Lantus 100 unit/mL s ubcutaneous solution RxNorm: 853488 15 Unit(s) SQ QPM No Start Date 12/28/2014 Inactive lisinopril 10 mg tablet RxNorm: 345614 1 Tablet(s) PO daily No Start Date 01/05/2016 Inactive Vitamin D2 50,000 un it capsule RxNorm: 586257 1 Capsule(s) PO QW No Start Date 08/01/2015 Inactive Toujeo SoloStar 300 unit/mL (1.5 mL) subcutaneous insulin pen RxNorm: 6703704 30 Unit(s) SQ QHS No Start Date 08/01/2015 Inactive simvastatin 40 mg ta blet RxNorm: 041389 1 Tablet(s) PO daily No Start Date 12/27/2015 Inactive testosterone cypiona te 200 mg/mL intramuscular oil RxNorm: 765479 1 Milliliter(s) IM monthly No Start Date 01/16/2018 Inactive hydrocodone 5 mg-linh taminophen 325 mg tablet RxNorm: 043227 1 Tablet(s) PO Q8 as needed No Start Date 12/08/2014 Inactive metformin 500 mg tablet RxNorm: 334373 1 Tablet(s) PO daily No Start Date 04/24/2015 Inactive omeprazole 20 mg cap jacquelyn,delayed release RxNorm: 723170 1 Capsule(s) PO daily No Start Date 10/05/2015 Inactive Flomax 0.4 mg capsule RxNorm: 280291 1 Capsule(s) PO daily No Start Date 03/23/2015 Inactive Medication Administered Medication Codes Instruc tions Start Date Status testosterone cypionate 200 mg/mL intramuscular oil RxNorm: 2362326 Milliliter 10/14/2018 No longer Active testosterone cypionate 200 mg/mL intramuscular oil RxNorm: 9891999 Milliliter 10/03/2018 No longer Active testosterone cypionate 200 mg/mL intramuscular oil RxNorm: 3645968 Milliliter 09/23/2018 No longer Active testosterone cypionate 200 mg/mL intramuscular oil RxNorm: 3372266 /2Milliliter 09/02/2018 No longer Active testosterone enanthate 200 mg/mL intramuscular oil RxNorm: 019549 Milliliter 08/21/2018 No longer Active testosterone cypionate 200 mg/mL intramuscular oil RxNorm: 6745556 Milliliter 08/08/2018 No longer Active testosterone cypionate 200 mg/mL intramuscular oil RxNorm: 7218496 2Milliliter 07/28/2018 No longer Active testosterone cypionate 200 mg/mL intramuscular oil RxNorm: 389483 Milliliter 07/16/2018 No longer Active testosterone cypionate 200 mg/mL intramuscular oil RxNorm: 243575 Milliliter 07/02/2018 No longer Active testosterone cypionate 200 mg/mL intramuscular oil RxNorm: 250656 Milliliter 06/24/2018 No longer Active testosterone cypionate 200 mg/mL intramuscular oil RxNorm: 312984 Milliliter 06/13/2018 No longer Active testosterone cypionate 200 mg/mL intramuscular oil RxNorm: 624387 Milliliter 06/05/2018 No longer Active testosterone cypionate 200 mg/mL intramuscular oil RxNorm: 850804 Milliliter 05/30/2018 No longer Active testosterone cypionate 200 mg/mL intramuscular oil RxNorm: 811327 Milliliter 05/22/2018 No longer Active testosterone cypionate 200 mg/mL intramuscular oil RxNorm: 207301 /2Milliliter 05/12/2018 No longer Active testosterone cypionate 200 mg/mL intramuscular oil RxNorm: 764947 Milliliter 05/02/2018 No longer Active testosterone cypionate 200 mg/mL intramuscular oil RxNorm: 375682 0.5Milliliter 04/24/2018 No longer Active testosterone cypionate 200 mg/mL intramuscular oil RxNorm: 677951 /2Milliliter 04/17/2018 No longer Active ketorolac 60 mg/2 mL intramuscular solution RxNorm: 0959371 Milliliter 03/07/2018 No longer Active Kenalog 40 mg/mL suspension for injection RxNorm: 9094526 1.5Milliliter 01/30/2018 No longer Active testosterone cypionate 200 mg/mL intramuscular oil RxNorm: 001691 Milliliter 01/17/2018 No longer Active Kenalog 40 mg/mL suspension for injection RxNorm: 3971646 Milliliter 04/12/2015 No longer Active Kenalog 40 mg/mL suspension for injection RxNorm: 7309837 Milliliter 12/23/2014 No longer Active Immunizations Vaccine Codes Date Status Influenza CVX: 141 06/06 completed Influenza CVX: 141 04/25 completed Pneumococcal (Adult) CVX: 133 04/25/2017 completed Influenza CVX: 141 05/22 completed Assessments Condition Codes Effectiv e Dates Unsteadiness on feet ICD-10: R26.81 ICD-9: 781.2 10/17/2018 Low back pain ICD-10: M54.5 ICD-9: 724.2 10/17/2018 Orthostatic hypotension ICD-10: I95. 1 ICD-9: 458.0 10/17/2018 Testicular dysfunction, unspecified ICD-10: E29.9 ICD-9: 257.9 10/14/2018 Mixed hyperlipidemia ICD-10: E78.2 ICD-9: 272.2 09/02/2018 [...] Code Item Item Code Result Date Testosterone [id number] Testo 669.0 ng/dL 09/08/2018 %Hba1C Pmn081 % HbA1c 39110-4 7.4 % 09/08/2018 %Hba1C Nmo602 Gluc Ave 166 mg/dL 09/08/2018 Lipid Ord30 CHOL 114 mg/dL 09/08/2018 Lipid Ord30 HDL 28.0 mg/dl 09/08/2018 Lipid Ord30 TRIG 154 mg/dL 09/08/2018 Lipid Ord30 LDL 55 mg/dL 09/08/2018 Lipid Ord30 C/HDL 4.1 Ratio 09/08/2018 Comp Metabolic Umx217 NA 137 mEq/L 09/08/2018 Comp Metabolic Til289 K 4.3 mEq/L 09/08/2018 Comp Metabolic Njx903 CL 100 mEq/L 09/08/2018 Comp Metabolic Qfj985 CO2 27.0 mEq/L 09/08/2018 Comp Metabolic Lst740 AN ION GAP 14 09/08/2018 Comp Metabolic Mmu787 GL UCOSE 85 mg/dL 09/08/2018 Comp Metabolic Mgw291 Cr eat 1.1 mg/dL 09/08/2018 Comp Metabolic Xex344 eG FR 70 ml/min/1.73m2 09/08 Comp Metabolic Hmv698 BUN 11 mg/dL 09/08/2018 Comp Metabolic Rcr162 B/ C Ratio 10.3 Ratio 09/08/2018 Comp Metabolic Eup914 CA LCIUM 9.2 mg/dL 09/08/2018 Comp Metabolic Dly715 AL K PHOS 65 U/L 09/08/2018 Comp Metabolic Nng722 T(SGOT) 16 U/L 09/08/2018 Comp Metabolic Twp183 AL T(SGPT) 14 U/L 09/08/2018 Comp Metabolic Yrt744 BI LI T 0.6 mg/dL 09/08/2018 Comp Metabolic Req257 AL BUMIN 4.0 g/dL 09/08/2018 Comp Metabolic Ira213 TP RO 6.6 g/dL 09/08/2018 Comp Metabolic Sgt512 GL OB 2.6 g/dL 09/08/2018 Comp Metabolic Fep079 A/ G Ratio 1.6 Ratio 09/08/2018 Comp Metabolic Xcl277 Os mo 272 mOsmo 09/08/2018 Vitamin D 25 Oh Xrq8377 VITAMIN D, 25 HYDROXY 37.17 ng/mL 09/08/2018 [...] 33.3 pg 09/08/2018 Cbc With Differential Ord2 [place]% 8.1 % 09/08/2018 Cbc With Differential Ord2 [...] 2.44 K/ul 09/08/2018 Cbc With Differential Ord2 [place] ABS# 0.6 K/ul 09/08/2018 Cbc With Differential Ord2 Eos ABS# 0.3 K/ul 09/08/2018 Cbc With Differential Ord2 Baso ABS# 0.0 K/ul 09/08/2018 Tsh Ord6 TSH (3rd IS) 2.72 uIU/mL 09/08/2018 Comp Metabolic Mkg706 NA 139 mEq/L 04/01/2018 Comp Metabolic Lxf567 K 4.2 mEq/L 04/01/2018 Comp Metabolic Qzv802 CL 102 mEq/L 04/01/2018 Comp Metabolic Vny393 CO2 29.0 mEq/L 04/01/2018 Comp Metabolic Wem380 AN ION GAP 12 04/01/2018 Comp Metabolic Kyi990 GL UCOSE 87 mg/dL 04/01/2018 Comp Metabolic Cxq891 Cr eat 1.1 mg/dL 04/01/2018 Comp Metabolic Tzg283 eG FR 70 ml/min/1.73m2 04/01 Comp Metabolic Daz442 BUN 21 mg/dL 04/01/2018 Comp Metabolic Gnf460 B/ C Ratio 19.4 Ratio 04/01/2018 Comp Metabolic Xui724 CA LCIUM 9.1 mg/dL 04/01/2018 Comp Metabolic Ywd580 AL K PHOS 60 U/L 04/01/2018 Comp Metabolic Kni056 T(SGOT) 15 U/L 04/01/2018 Comp Metabolic Ncv910 AL T(SGPT) 18 U/L 04/01/2018 Comp Metabolic Pea823 BI LI T 0.4 mg/dL 04/01/2018 Comp Metabolic Kfl680 AL BUMIN 4.0 g/dL 04/01/2018 Comp Metabolic Ymy694 TP RO 6.5 g/dL 04/01/2018 Comp Metabolic Qcb703 GL OB 2.5 g/dL 04/01/2018 Comp Metabolic Gkl553 A/ G Ratio 1.6 Ratio 04/01/2018 Comp Metabolic Xvt305 Os mo 280 mOsmo 04/01/2018 Lipid Ord30 [...] 34.3 pg 04/01/2018 Cbc With Differential Ord2 [place]% 6.0 % 04/01/2018 Cbc With Differential Ord2 [...] 3.25 K/ul 04/01/2018 Cbc With Differential Ord2 [place] ABS# 0.6 K/ul 04/01/2018 Cbc With Differential Ord2 Eos ABS# 0.4 K/ul 04/01/2018 Cbc With Differential Ord2 Baso ABS# 0.0 K/ul 04/01/2018 %Hba1C Ohn874 % HbA1c 57339-1 8.0 % 04/01/2018 %Hba1C Hbt411 Gluc Ave 183 mg/dL 04/01/2018 Testosterone Eyj186 Testo 111.3 ng/dL 04/01/2018 Testosterone Oii961 Testo 135.4 ng/dL 01/14/2018 Cbc With Differential [...] 36.0 pg 01/14/2018 Cbc With Differential Ord2 [place]% 6.8 % 01/14/2018 Cbc With Differential Ord2 [...] 2.71 K/ul 01/14/2018 Cbc With Differential Ord2 [place] ABS# 0.8 K/ul 01/14/2018 Cbc With Differential Ord2 Eos ABS# 0.2 K/ul 01/14/2018 Cbc With Differential Ord2 Baso ABS# 0.0 K/ul 01/14/2018 Comp Metabolic Zbk767 NA 134 mEq/L 11/20/2017 Comp Metabolic Sfa956 K 4.4 mEq/L 11/20/2017 Comp Metabolic Zbw165 CL 99 mEq/L 11/20/2017 Comp Metabolic Xfu904 CO2 29.0 mEq/L 11/20/2017 Comp Metabolic Krf706 AN ION GAP 10 11/20/2017 Comp Metabolic Jcp513 GL UCOSE 218 mg/dL 11/20/2017 Comp Metabolic Ctq471 Cr eat 1.0 mg/dL 11/20/2017 Comp Metabolic Dkf052 eG FR 78 ml/min/1.73m2 11/20 Comp Metabolic Tsh732 BUN 13 mg/dL 11/20/2017 Comp Metabolic Mps306 B/ C Ratio 13.3 Ratio 11/20/2017 Comp Metabolic Ioo673 CA LCIUM 9.0 mg/dL 11/20/2017 Comp Metabolic Mtw201 AL K PHOS 71 U/L 11/20/2017 Comp Metabolic Qdr698 T(SGOT) 18 U/L 11/20/2017 Comp Metabolic Jrs817 AL T(SGPT) 17 U/L 11/20/2017 Comp Metabolic Dyv037 BI LI T 0.4 mg/dL 11/20/2017 Comp Metabolic Sqk166 AL BUMIN 4.1 g/dL 11/20/2017 Comp Metabolic Oew590 TP RO 6.5 g/dL 11/20/2017 Comp Metabolic Rfg711 GL OB 2.4 g/dL 11/20/2017 Comp Metabolic Ypq582 A/ G Ratio 1.8 Ratio 11/20/2017 Comp Metabolic Wak385 Os mo 275 mOsmo 11/20/2017 Cbc With [...] 35.2 pg 11/20/2017 Cbc With Differential Ord2 [place]% 7.2 % 11/20/2017 Cbc With Differential Ord2 [...] 3.34 K/ul 11/20/2017 Cbc With Differential Ord2 [place] ABS# 0.6 K/ul 11/20/2017 Cbc With Differential Ord2 Eos ABS# 0.3 K/ul 11/20/2017 Cbc With Differential Ord2 Baso ABS# 0.0 K/ul 11/20/2017 Vitamin D 25 Oh Phx4151 VITAMIN D, 25 HYDROXY 43.72 ng/mL 11/20/2017 %Hba1C Llw707 % HbA1c 60678-9 7.4 % 11/20/2017 %Hba1C Uwm477 Gluc Ave 166 mg/dL 11/20/2017 %Hba1C Yyp604 % HbA1c 18965-8 7.2 % 08/20/2017 %Hba1C Kwo116 Gluc Ave 160 mg/dL 08/20/2017 Lipid Ord30 [...] 34.7 pg 08/20/2017 Cbc With Differential Ord2 [place]% 7.6 % 08/20/2017 Cbc With Differential Ord2 [...] 2.42 K/ul 08/20/2017 Cbc With Differential Ord2 [place] ABS# 0.6 K/ul 08/20/2017 Cbc With Differential Ord2 Eos ABS# 0.3 K/ul 08/20/2017 Cbc With Differential Ord2 Baso ABS# 0.0 K/ul 08/20/2017 Tsh Ord6 hTSH II 2.27 uIU/mL 08/20/2017 Comp Metabolic Kjv611 NA 138 mEq/L 08/20/2017 Comp Metabolic Dmt145 K 4.3 mEq/L 08/20/2017 Comp Metabolic Tae611 CL 102 mEq/L 08/20/2017 Comp Metabolic Psf968 CO2 29.0 mEq/L 08/20/2017 Comp Metabolic Xva190 AN ION GAP 11 08/20/2017 Comp Metabolic Vul749 GL UCOSE 89 mg/dL 08/20/2017 Comp Metabolic Kdd400 Cr eat 1.0 mg/dL 08/20/2017 Comp Metabolic Gbv937 eG FR 80 ml/min/1.73m2 08/20 Comp Metabolic Jbs068 BUN 13 mg/dL 08/20/2017 Comp Metabolic Gua482 B/ C Ratio 13.5 Ratio 08/20/2017 Comp Metabolic Ngx864 CA LCIUM 9.2 mg/dL 08/20/2017 Comp Metabolic Ecv449 AL K PHOS 69 U/L 08/20/2017 Comp Metabolic Hdq514 T(SGOT) 18 U/L 08/20/2017 Comp Metabolic Jji097 AL T(SGPT) 19 U/L 08/20/2017 Comp Metabolic Joj859 BI LI T 0.6 mg/dL 08/20/2017 Comp Metabolic Dgd265 AL BUMIN 4.0 g/dL 08/20/2017 Comp Metabolic Mbx360 TP RO 6.6 g/dL 08/20/2017 Comp Metabolic Lei581 GL OB 2.6 g/dL 08/20/2017 Comp Metabolic Wbc894 A/ G Ratio 1.5 Ratio 08/20/2017 Comp Metabolic Oad720 Os mo 275 mOsmo 08/20/2017 Vitamin D 25 Oh Eiw5122 VITAMIN D, 25 HYDROXY 30.96 ng/mL 08/20/2017 B12 Zbs757 B12 >1500.00 pg/ml 02/22/2017 Cbc With Differential [...] 35.7 pg 02/20/2017 Cbc With Differential Ord2 [place]% 6.3 % 02/20/2017 Cbc With Differential Ord2 [...] 3.19 K/ul 02/20/2017 Cbc With Differential Ord2 [place] ABS# 0.5 K/ul 02/20/2017 Cbc With Differential Ord2 Eos ABS# 0.4 K/ul 02/20/2017 Cbc With Differential Ord2 Baso ABS# 0.0 K/ul 02/20/2017 Comp Metabolic Tok680 NA 138 mEq/L 02/20/2017 Comp Metabolic Jlg578 K 4.5 mEq/L 02/20/2017 Comp Metabolic Vjs552 CL 101 mEq/L 02/20/2017 Comp Metabolic Jqk053 CO2 31.0 mEq/L 02/20/2017 Comp Metabolic Iir816 AN ION GAP 11 02/20/2017 Comp Metabolic Pyy532 GL UCOSE 120 mg/dL 02/20/2017 Comp Metabolic Qvv772 Cr eat 0.9 mg/dL 02/20/2017 Comp Metabolic Agp408 eG FR 83 ml/min/1.73m2 02/20 Comp Metabolic Tjf359 BUN 15 mg/dL 02/20/2017 Comp Metabolic Opw718 B/ C Ratio 16.1 Ratio 02/20/2017 Comp Metabolic Uss086 CA LCIUM 9.1 mg/dL 02/20/2017 Comp Metabolic Avx919 AL K PHOS 67 U/L 02/20/2017 Comp Metabolic Nrq787 T(SGOT) 15 U/L 02/20/2017 Comp Metabolic Oto086 AL T(SGPT) 16 U/L 02/20/2017 Comp Metabolic Bfs710 BI LI T 0.5 mg/dL 02/20/2017 Comp Metabolic Yxa137 AL BUMIN 4.0 g/dL 02/20/2017 Comp Metabolic Ubt579 TP RO 6.4 g/dL 02/20/2017 Comp Metabolic Xxh037 GL OB 2.4 g/dL 02/20/2017 Comp Metabolic Ucc084 A/ G Ratio 1.7 Ratio 02/20/2017 Comp Metabolic Zvm799 Os mo 278 mOsmo 02/20/2017 Tsh Ord6 hTSH II 2.05 uIU/mL 02/20/2017 %Hba1C Gzf135 % HbA1c 93827-2 7.6 % 02/20/2017 %Hba1C Sug437 Gluc Ave 171 mg/dL 02/20/2017 Vitamin D 25 Oh Hkm0677 VITAMIN D, 25 HYDROXY 44.40 ng/mL 12/21/2016 Comp Metabolic Tmk734 NA 131 mEq/L 12/21/2016 Comp Metabolic Cpg340 K 4.2 mEq/L 12/21/2016 Comp Metabolic Krf781 CL 97 mEq/L 12/21/2016 Comp Metabolic Oqb787 CO2 27.0 mEq/L 12/21/2016 Comp Metabolic Ghi860 AN ION GAP 11 12/21/2016 Comp Metabolic Zeb349 GL UCOSE 266 mg/dL 12/21/2016 Comp Metabolic Dcg846 Cr eat 0.9 mg/dL 12/21/2016 Comp Metabolic Aof340 eG FR 88 ml/min/1.73m2 12/21 Comp Metabolic Jqy802 BUN 12 mg/dL 12/21/2016 Comp Metabolic Dnd991 B/ C Ratio 13.6 Ratio 12/21/2016 Comp Metabolic Jug040 CA LCIUM 8.6 mg/dL 12/21/2016 Comp Metabolic Fnn127 AL K PHOS 69 U/L 12/21/2016 Comp Metabolic Kmo882 T(SGOT) 15 U/L 12/21/2016 Comp Metabolic Guu036 AL T(SGPT) 14 U/L 12/21/2016 Comp Metabolic Mut930 BI LI T 0.3 mg/dL 12/21/2016 Comp Metabolic Rih854 AL BUMIN 3.7 g/dL 12/21/2016 Comp Metabolic Hem279 TP RO 5.9 g/dL 12/21/2016 Comp Metabolic Vxm544 GL OB 2.2 g/dL 12/21/2016 Comp Metabolic Tyj758 A/ G Ratio 1.7 Ratio 12/21/2016 Comp Metabolic Ovq878 Os mo 272 mOsmo 12/21/2016 Cbc With [...] 34.6 pg 12/21/2016 Cbc With Differential Ord2 [place]% 6.9 % 12/21/2016 Cbc With Differential Ord2 [...] 2.05 K/ul 12/21/2016 Cbc With Differential Ord2 [place] ABS# 0.4 K/ul 12/21/2016 Cbc With Differential Ord2 Eos ABS# 0.2 K/ul 12/21/2016 Cbc With Differential Ord2 Baso ABS# 0.0 K/ul 12/21/2016 Comp Metabolic Our304 NA 138 mEq/L 09/03/2016 Comp Metabolic Mkb709 K 4.5 mEq/L 09/03/2016 Comp Metabolic Xcb585 CL 102 mEq/L 09/03/2016 Comp Metabolic Jpn285 CO2 30.0 mEq/L 09/03/2016 Comp Metabolic Yjg140 AN ION GAP 11 09/03/2016 Comp Metabolic Hgj748 GL UCOSE 113 mg/dL 09/03/2016 Comp Metabolic Wrg340 Cr eat 1.0 mg/dL 09/03/2016 Comp Metabolic Zrg558 eG FR 81 ml/min/1.73m2 09/03 Comp Metabolic Hic369 BUN 10 mg/dL 09/03/2016 Comp Metabolic Moq237 B/ C Ratio 10.5 Ratio 09/03/2016 Comp Metabolic Qzu666 CA LCIUM 9.1 mg/dL 09/03/2016 Comp Metabolic Xwl293 AL K PHOS 71 U/L 09/03/2016 Comp Metabolic Ulg877 T(SGOT) 18 U/L 09/03/2016 Comp Metabolic Lgf229 AL T(SGPT) 17 U/L 09/03/2016 Comp Metabolic Rsy139 BI LI T 0.6 mg/dL 09/03/2016 Comp Metabolic Hng374 AL BUMIN 4.1 g/dL 09/03/2016 Comp Metabolic Ogs317 TP RO 6.4 g/dL 09/03/2016 Comp Metabolic Sfx077 GL OB 2.3 g/dL 09/03/2016 Comp Metabolic Amv381 A/ G Ratio 1.8 Ratio 09/03/2016 Comp Metabolic Sej268 Os mo 276 mOsmo 09/03/2016 Vitamin D 25 Oh Con9867 VITAMIN D, 25 HYDROXY 28.23 ng/mL 09/03/2016 [...] 34.4 pg 09/03/2016 Cbc With Differential Ord2 [place]% 8.9 % 09/03/2016 Cbc With Differential Ord2 [...] 3.34 K/ul 09/03/2016 Cbc With Differential Ord2 [place] ABS# 0.7 K/ul 09/03/2016 Cbc With Differential Ord2 Eos ABS# 0.4 K/ul 09/03/2016 Cbc With Differential Ord2 Baso ABS# 0.0 K/ul 09/03/2016 Lipid Ord30 CHOL 120 mg/dL 09/03/2016 Lipid Ord30 HDL 33.0 mg/dl 09/03/2016 Lipid Ord30 TRIG 161 mg/dL 09/03/2016 Lipid Ord30 LDL 55 mg/dL 09/03/2016 Lipid Ord30 C/HDL 3.6 Ratio 09/03/2016 %Hba1C Bjo414 % HbA1c 29585-9 7.5 % 09/03/2016 %Hba1C Gtr637 Gluc Ave 169 mg/dL 09/03/2016 Tsh Ord6 hTSH II 1.50 uIU/mL 05/23/2016 %Hba1C Zxj398 % HbA1c 64781-3 7.6 % 05/23/2016 %Hba1C Lge328 Gluc Ave 171 mg/dL 05/23/2016 Comp Metabolic Yjg001 NA 135 mEq/L 05/23/2016 Comp Metabolic Vfc891 K 4.4 mEq/L 05/23/2016 Comp Metabolic Cyv216 CL 99 mEq/L 05/23/2016 Comp Metabolic Pnl164 CO2 28.0 mEq/L 05/23/2016 Comp Metabolic Heg773 AN ION GAP 12 05/23/2016 Comp Metabolic Fdm121 GL UCOSE 257 mg/dL 05/23/2016 Comp Metabolic Nbl149 Cr eat 0.8 mg/dL 05/23/2016 Comp Metabolic Ufd220 eG FR 95 ml/min/1.73m2 05/23 Comp Metabolic Qfz816 BUN 11 mg/dL 05/23/2016 Comp Metabolic Lxa781 B/ C Ratio 13.3 Ratio 05/23/2016 Comp Metabolic Sye219 CA LCIUM 9.0 mg/dL 05/23/2016 Comp Metabolic Oxn939 AL K PHOS 82 U/L 05/23/2016 Comp Metabolic Qre804 T(SGOT) 21 U/L 05/23/2016 Comp Metabolic Fki855 AL T(SGPT) 20 U/L 05/23/2016 Comp Metabolic Ibm691 BI LI T 0.3 mg/dL 05/23/2016 Comp Metabolic Xjf339 AL BUMIN 4.0 g/dL 05/23/2016 Comp Metabolic Sdk694 TP RO 6.4 g/dL 05/23/2016 Comp Metabolic Jvt984 GL OB 2.4 g/dL 05/23/2016 Comp Metabolic Fdw216 A/ G Ratio 1.6 Ratio 05/23/2016 Comp Metabolic Htc107 Os mo 278 mOsmo 05/23/2016 Cbc With [...] 34.5 pg 05/23/2016 Cbc With Differential Ord2 [place]% 6.1 % 05/23/2016 Cbc With Differential Ord2 [...] 2.38 K/ul 05/23/2016 Cbc With Differential Ord2 [place] ABS# 0.4 K/ul 05/23/2016 Cbc With Differential Ord2 Eos ABS# 0.2 K/ul 05/23/2016 Cbc With Differential Ord2 Baso ABS# 0.0 K/ul 05/23/2016 B12 Kwf049 B12 597.00 pg/ml 05/23/2016 Metabolic Ord15 NA [...] 0.92 uIU/mL 07/29/2015 Vitamin D 25 Oh Zmw7074 VITAMIN D, 25 HYDROXY 26.93 ng/mL 07/29/2015 %Hba1C Qwu281 % HbA1c 99090-0 8.8 % 07/29/2015 %Hba1C Hkz001 Gluc Ave 206 mg/dL 07/29/2015 Cbc With [...] Ord2 RDW 14.9 % 07/29/2015 Comp Metabolic Jfs843 NA 138 mEq/L 07/29/2015 Comp Metabolic Yzy475 K 4.4 mEq/L 07/29/2015 Comp Metabolic Hny484 CL 102 mEq/L 07/29/2015 Comp Metabolic Cka912 CO2 28.0 mEq/L 07/29/2015 Comp Metabolic Sko197 AN ION GAP 12 07/29/2015 Comp Metabolic Szw437 GL UCOSE 261 mg/dL 07/29/2015 Comp Metabolic Xia306 Cr eat 1.0 mg/dL 07/29/2015 Comp Metabolic Udq047 eG FR 77 ml/min/1.73m2 07/29 Comp Metabolic Esq845 BUN 13 mg/dL 07/29/2015 Comp Metabolic Miz364 B/ C Ratio 13.0 Ratio 07/29/2015 Comp Metabolic Nqn546 CA LCIUM 9.1 mg/dL 07/29/2015 Comp Metabolic Jrw983 AL K PHOS 64 U/L 07/29/2015 Comp Metabolic Zmm450 T(SGOT) 20 U/L 07/29/2015 Comp Metabolic Cuq684 AL T(SGPT) 22 U/L 07/29/2015 Comp Metabolic Czz854 BI LI T 0.4 mg/dL 07/29/2015 Comp Metabolic Rjf186 AL BUMIN 4.0 g/dL 07/29/2015 Comp Metabolic Bzs665 TP RO 6.1 g/dL 07/29/2015 Comp Metabolic Yij044 GL OB 2.1 g/dL 07/29/2015 Comp Metabolic Mzz021 A/ G Ratio 1.9 Ratio 07/29/2015 Comp Metabolic Oxl221 Os mo 285 mOsmo 07/29/2015 Cbc With [...] Ord2 RDW 13.1 % 05/06/2015 Comp Metabolic Esw348 NA 134 mEq/L 05/06/2015 Comp Metabolic Zsv829 K 4.4 mEq/L 05/06/2015 Comp Metabolic Cam493 CL 98 mEq/L 05/06/2015 Comp Metabolic Kqi855 CO2 29.0 mEq/L 05/06/2015 Comp Metabolic Knz005 AN ION GAP 11 05/06/2015 Comp Metabolic Mgx736 GL UCOSE 321 mg/dL 05/06/2015 Comp Metabolic Hny165 Cr eat 1.0 mg/dL 05/06/2015 Comp Metabolic Dew765 eG FR 78 ml/min/1.73m2 05/06 Comp Metabolic Uay612 BUN 20 mg/dL 05/06/2015 Comp Metabolic Azk327 B/ C Ratio 20.4 Ratio 05/06/2015 Comp Metabolic Ggu395 CA LCIUM 9.5 mg/dL 05/06/2015 Comp Metabolic Sds865 AL K PHOS 62 U/L 05/06/2015 Comp Metabolic Wwn933 T(SGOT) 21 U/L 05/06/2015 Comp Metabolic Rer491 AL T(SGPT) 37 U/L 05/06/2015 Comp Metabolic Tsn322 BI LI T 0.4 mg/dL 05/06/2015 Comp Metabolic Yoq362 AL BUMIN 3.8 g/dL 05/06/2015 Comp Metabolic Ylz116 TP RO 6.1 g/dL 05/06/2015 Comp Metabolic Udk245 GL OB 2.3 g/dL 05/06/2015 Comp Metabolic Kij763 A/ G Ratio 1.7 Ratio 05/06/2015 Comp Metabolic Cth141 Os mo 283 mOsmo 05/06/2015 Tsh Ord6 hTSH II 1.65 uIU/mL 02/18/2015 B12 Ykh701 B12 605.00 pg/ml 02/18/2015 %Hba1C Gsh068 % HbA1c 36221-2 8.3 % 02/18/2015 %Hba1C Tbd571 Gluc Ave 192 mg/dL 02/18/2015 Cbc With [...] Ord2 RDW 13.9 % 02/17/2015 Comp Metabolic Dnn264 NA 137 mEq/L 02/17/2015 Comp Metabolic Acd591 K 4.4 mEq/L 02/17/2015 Comp Metabolic Blf628 CL 100 mEq/L 02/17/2015 Comp Metabolic Lsq469 CO2 31.0 mEq/L 02/17/2015 Comp Metabolic Uff545 AN ION GAP 10 02/17/2015 Comp Metabolic Nho038 GL UCOSE 307 mg/dL 02/17/2015 Comp Metabolic Gqx553 Cr eat 1.0 mg/dL 02/17/2015 Comp Metabolic Lxg973 eG FR 74 ml/min/1.73m2 02/17 Comp Metabolic Dsz308 BUN 22 mg/dL 02/17/2015 Comp Metabolic Ypj025 B/ C Ratio 21.4 Ratio 02/17/2015 Comp Metabolic Gvi984 CA LCIUM 9.5 mg/dL 02/17/2015 Comp Metabolic Gmx914 AL K PHOS 78 U/L 02/17/2015 Comp Metabolic Laa777 T(SGOT) 18 U/L 02/17/2015 Comp Metabolic Zsx154 AL T(SGPT) 32 U/L 02/17/2015 Comp Metabolic Bwu278 BI LI T 0.5 mg/dL 02/17/2015 Comp Metabolic Wla904 AL BUMIN 4.3 g/dL 02/17/2015 Comp Metabolic Fii434 TP RO 6.7 g/dL 02/17/2015 Comp Metabolic Kqm290 GL OB 2.4 g/dL 02/17/2015 Comp Metabolic Neb969 A/ G Ratio 1.8 Ratio 02/17/2015 Comp Metabolic Rej808 Os mo 289 mOsmo 02/17/2015 Review of [...] sounds 04/04/2018 None Full Exam - General 1995 Lymphatic [...] inspection of skin Location: face 03/07/2015 on pentecostal, cheeks,actinic keratosis with irritation on left cheek - left pentecostal - croptherapy on these two lesions - [...] Procedure Codes Date THER/PROPH/DIAG INJ SC/IM CPT-4: 83030 10/14/2018 THER/PROPH/DIAG INJ SC/IM CPT-4: 90180 10/03/2018 THER/PROPH/DIAG INJ SC/IM CPT-4: 45199 09/23/2018 THER/PROPH/DIAG INJ SC/IM CPT-4: 41564 09/02/2018 THER/PROPH/DIAG INJ SC/IM CPT-4: 69986 08/21/2018 THER/PROPH/DIAG INJ SC/IM CPT-4: 39827 08/08/2018 THER/PROPH/DIAG INJ SC/IM CPT-4: 07758 07/28/2018 THER/PROPH/DIAG INJ SC/IM CPT-4: 45924 07/16/2018 THER/PROPH/DIAG INJ SC/IM CPT-4: 56641 07/02/2018 PPPS, SUBSEQ VISIT CPT- 4: G0439 06/30/2018 THER/PROPH/DIAG INJ SC/IM CPT-4: 44910 06/24/2018 THER/PROPH/DIAG INJ SC/IM CPT-4: 18048 06/13/2018 ADMIN INFLUENZA VIRU S VAC CPT-4: G0008 06/06/2018 FLU VACC PRSV FREE I NC ANTIG CPT-4: 01938 06/06/2018 THER/PROPH/DIAG INJ SC/IM CPT-4: 78492 06/05/2018 THER/PROPH/DIAG INJ SC/IM CPT-4: 48286 05/30/2018 THER/PROPH/DIAG INJ SC/IM CPT-4: 39962 05/22/2018 THER/PROPH/DIAG INJ SC/IM CPT-4: 16786 05/12/2018 THER/PROPH/DIAG INJ SC/IM CPT-4: 97461 05/02/2018 THER/PROPH/DIAG INJ SC/IM CPT-4: 72892 04/24/2018 THER/PROPH/DIAG INJ SC/IM CPT-4: 88667 04/17/2018 KETOROLAC TROMETHAMI NE INJ CPT-4: J1885 03/07/2018 URINALYSIS NONAUTO W /O SCOPE CPT-4: 67081 03/07/2018 THER/PROPH/DIAG INJ SC/IM CPT-4: 52309 02/20/2018 TRIAMCINOLONE ACET I [place] NOS CPT-4: J3301 01/30/2018 THER/PROPH/DIAG INJ SC/IM CPT-4: 94815 01/17/2018 TOBACCO-USE FUR SEWER 3-[address]: [id number] CPT-4: G0436 04/25/2017 ADMIN INFLUENZA VIRU S VAC CPT-4: G0008 04/25/2017 ADMIN PNEUMOCOCCAL V ACCINE SNOMED CT: 16878133 CPT-4: G0009 04/25/2017 PNEUMOCOCCAL VACC [address]: 39737915 CPT-4: 72683 04/25/2017 FLU VACC PRSV FREE I NC ANTIG CPT-4: 08770 04/25/2017 ADMIN INFLUENZA VIRU S VAC CPT-4: G0008 05/22/2016 FLU VACC 4 TELLY 3 YRS PLUS IM Formatting Model/CDA Sections, Assigned to/Angela Clemons SNOMED CT: 23594576 CPT-4: 35232Acfunwm 05/22/2016 TOBACCO-USE FUR SEWER 3-[address]: 324035116 CPT-4: G0436 11/25/2015 URINALYSIS NONAUTO W /O SCOPE CPT-4: 64977 05/09/2015 TRIAMCINOLONE ACET I [place] NOS CPT-4: J3301 04/12/2015 DESTRUCT PREMALG LESION CPT-4: 88148 03/07/2015 DESTRUCT PREMALG LES 2-14 CPT-4: 04592 03/07/2015 REMOVE IMPACTED EAR WAX UNI CPT-4: 13125 12/31/2014 THER/PROPH/DIAG INJ SC/IM CPT-4: 72645 12/23/2014 TRIAMCINOLONE ACET I [place] NOS CPT-4: J3301 12/23/2014 Vital Signs Date Vital 10/17/2018 Blood Pressure 1: 124/54 Code: 8480-6 BMI: 21.9 Code: 38788-3 Heart Rate 1: 64 bpm Height: 5'11" SpO2: 93% Weight: 157 lbs 09/02/2018 Blood Pressure 1: 140/80 Code: 8480-6 BMI: 21.2 Code: 87585-6 Heart Rate 1: 68 bpm Height: 5'11" SpO2: 97% Weight: 152 lbs 06/30/2018 BMI: 21.8 Code: 48855-8 Height: 5'11" Weight: 156 lbs 06/06/2018 Blood Pressure 1: 128/76 Code: 8480-6 BMI: 22.0 Code: 92648-2 Heart Rate 1: 81 bpm Height: 5'11" SpO2: 92% Weight: 158 lbs 04/04/2018 Blood Pressure 1: 124/70 Code: 8480-6 BMI: 20.8 Code: 60324-8 Heart Rate 1: 65 bpm Height: 5'11" SpO2: 95% Weight: 149 lbs 03/07/2018 Blood Pressure 1: 148/70 Code: 8480-6 BMI: 21.2 Code: 60757-1 Heart Rate 1: 66 bpm Height: 5'11" SpO2: 94% Weight: 152 lbs 02/20/2018 Blood Pressure 1: 134/58 Code: 8480-6 BMI: 20.5 Code: 80439-5 Heart Rate 1: 61 bpm Height: 5'11" SpO2: 92% Weight: 147 lbs 01/30/2018 Blood Pressure 1: 158/68 Code: 8480-6 BMI: 21.5 Code: 54855-5 Heart Rate 1: 71 bpm Height: 5'11" SpO2: 92% Weight: 154 lbs 01/14/2018 Blood Pressure 1: 156/70 Code: 8480-6 Height: Weight: 01/13/2018 Blood Pressure 1: 148/62 Code: 8480-6 BMI: 20.9 Code: 53338-7 Heart Rate 1: 54 bpm Height: 5'11" SpO2: 97% Weight: 150 lbs 11/19/2017 Blood Pressure 1: 150/60 Code: 8480-6 BMI: 21.8 Code: 37539-4 Heart Rate 1: 63 bpm Height: 5'11" SpO2: 98% Weight: 156 lbs 10/02/2017 Blood Pressure 1: 168/60 Code: 8480-6 BMI: 21.9 Code: 12989-3 Heart Rate 1: 52 bpm Height: 5'11" SpO2: 97% Weight: 157 lbs 07/23/2017 Blood Pressure 1: 170/70 Code: 8480-6 BMI: 21.8 Code: 82541-1 Heart Rate 1: 65 bpm Height: 5'11" SpO2: 98% Weight: 156 lbs 04/25/2017 Blood Pressure 1: 138/60 Code: 8480-6 BMI: 21.6 Code: 06450-0 Heart Rate 1: 55 bpm Height: 5'11" SpO2: 93% Weight: 155 lbs 02/19/2017 Blood Pressure 1: 138/64 Code: 8480-6 BMI: 21.3 Code: 90940-4 Heart Rate 1: 52 bpm Height: 5'11" SpO2: 96% Weight: 152 lbs 8 oz 01/21/2017 Blood Pressure 1: 160/68 Code: 8480-6 BMI: 21.3 Code: 40323-3 Heart Rate 1: 62 bpm Height: 5'11" SpO2: 96% Weight: 153 lbs 12/20/2016 Blood Pressure 1: 124/66 Code: 8480-6 BMI: 21.5 Code: 29062-7 Height: 5'11" Weight: 154 lbs 08/23/2016 Blood Pressure 1: 142/52 Code: 8480-6 BMI: 21.2 Code: 32581-1 Heart Rate 1: 54 bpm Height: 5'11" SpO2: 96% Weight: 152 lbs 05/22/2016 Blood Pressure 1: 130/76 Code: 8480-6 BMI: 21.5 Code: 29706-8 Heart Rate 1: 78 bpm Height: 5'11" SpO2: 92% Weight: 154 lbs 02/24/2016 Blood Pressure 1: 128/80 Code: 8480-6 BMI: 21.2 Code: 35282-4 Heart Rate 1: 74 bpm Height: 5'11" SpO2: 96% Weight: 152 lbs 01/27/2016 Blood Pressure 1: 144/60 Code: 8480-6 BMI: 21.2 Code: 23088-5 Heart Rate 1: 74 bpm Height: 5'11" SpO2: 97% Weight: 152 lbs 11/25/2015 Blood Pressure 1: 110/52 Code: 8480-6 BMI: 21.9 Code: 29640-5 Heart Rate 1: 65 bpm Height: 5'11" SpO2: 92% Weight: 157 lbs 07/28/2015 Blood Pressure 1: 138/62 Code: 8480-6 BMI: 21.8 Code: 91859-2 Heart Rate 1: 63 bpm Height: 5'11" SpO2: 91% Weight: 156 lbs 05/26/2015 Blood Pressure 1: 120/58 Code: 8480-6 BMI: 21.5 Code: 56880-3 Heart Rate 1: 99 bpm Height: 5'11" SpO2: 96% Weight: 154 lbs 05/06/2015 Blood Pressure 1: 120/58 Code: 8480-6 BMI: 21.2 Code: 69519-9 Heart Rate 1: 66 bpm Height: 5'11" SpO2: 96% Weight: 152 lbs 04/25/2015 Blood Pressure 1: 136/62 Code: 8480-6 BMI: 21.2 Code: 03483-3 Heart Rate 1: 63 bpm Height: 5'11" SpO2: 97% Weight: 152 lbs 04/12/2015 Blood Pressure 1: 160/58 Code: 8480-6 BMI: 21.6 Code: 18778-5 Heart Rate 1: 62 bpm Height: 5'11" Weight: 155 lbs 03/24/2015 Blood Pressure 1: 138/68 Code: 8480-6 BMI: 22.0 Code: 26975-3 Heart Rate 1: 65 bpm Height: 5'11" SpO2: 96% Weight: 158 lbs 03/07/2015 Blood Pressure 1: 116/52 Code: 8480-6 BMI: 22.2 Code: 68631-9 Heart Rate 1: 64 bpm Height: 5'11" SpO2: 97% Weight: 159 lbs 02/17/2015 Blood Pressure 1: 148/58 Code: 8480-6 BMI: 21.3 Code: 73466-5 Heart Rate 1: 63 bpm Height: 5'11" SpO2: 97% Weight: 153 lbs 12/31/2014 Blood Pressure 1: 100/60 Code: 8480-6 BMI: 21.8 Code: 29438-7 Heart Rate 1: 68 bpm Height: 5'11" Weight: 156 lbs 12/23/2014 Blood Pressure 1: 148/64 Code: 8480-6 BMI: 21.9 Code: 05346-8 Heart Rate 1: 64 bpm Height: 5'11" [...] [facility] 06/06/2018 None hypertension [facility] 06/06/2018 None hypertension Onset and Resolution [...] Encounters Encounter Performer Loca tion Codes Date ([id number]) [id number] EST. P ATIENT, LEVEL III Diagnosis: Orthostatic hypotension[ICD10: I95.1] Diagnosis: Low back pain[ICD10: M54.5] Diagnosis: Unsteadiness on feet[ICD10: R26.81] Karmen Ash MD, [facility] CPT-4: 86790 10/17/2018 [id number] EST. P ATIENT, LEVEL IV Diagnosis: Essential (primary) hypertension[ICD10: I10] Diagnosis: Chronic obstructive pulmonary disease, unspecified[ICD10: J44.9] Diagnosis: Type 2 diabetes mellitus with hyperglycemia[ICD10: E11.65] Diagnosis: Vitamin D deficiency, unspecified[ICD10: E55.9] Diagnosis: Mixed hyperlipidemia[ICD10: E78.2] Diagnosis: Testicular dysfunction, unspecified[ICD10: E29.9] Karmen Ash MD, [facility] CPT-4: 35834 09/02/2018 [id number] EST. P ATIENT, LEVEL IV Diagnosis: Cellulitis of face[ICD10: L03.211] Diagnosis: Type 2 diabetes mellitus without complications[ICD10: E11.9] Diagnosis: Essential (primary) hypertension[ICD10: I10] Diagnosis: Encounter for immunization[ICD10: Z23] Karmen Ash MD, [facility] CPT-4: 35273 06/06/2018 ([id number]) 57191 EST. 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 P ATIENT, LEVEL III Diagnosis: Low back pain[ICD10: M54.5] Diagnosis: Dysuria[ICD10: R30.0] Karmen Ash MD, [facility] CPT-4: 14959 03/07/2018 ([id number]) 34009 EST. 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 P ATIENT, LEVEL III Diagnosis: Chronic obstructive pulmonary disease with (acute) exacerbation[ICD10: J44.1] Karmen sAh MD, [facility] CPT-4: 29551 01/30/2018 79029 EST. PATIENT, LEVEL II Diagnosis: Insect bite (nonvenomous), left lower leg, initial encounter[ICD10: S80.862A] Karmen Ash MD, [facility] CPT-4: 08898 01/14/2018 ([id number]) 95191 EST. P ATIENT, LEVEL IV Diagnosis: Type 2 diabetes mellitus with hyperglycemia[ICD10: E11.65] Diagnosis: Chronic obstructive pulmonary disease, unspecified[ICD10: J44.9] Diagnosis: Other fatigue[ICD10: R53.83] Karmen Ash MD, [facility] CPT- 4: 55651 01/13/2018 ([id number]) 12294 EST. P ATIENT, LEVEL IV Diagnosis: Type 2 diabetes mellitus with hyperglycemia[ICD10: E11.65] Diagnosis: Vitamin D deficiency, unspecified[ICD10: E55.9] Diagnosis: Essential (primary) hypertension[ICD10: I10] Diagnosis: Abdominal distension (gaseous)[ICD10: R14.0] Diagnosis: Drug induced constipation[ICD10: K59.03] Karmen Ash MD, [facility] CPT-4: 63873 11/19/2017 12703 EST. PATIENT, LEVEL IV Diagnosis: Low back pain[ICD10: M54.5] Diagnosis: Chronic obstructive pulmonary disease, unspecified[ICD10: J44.9] Brunilda Ash MD, [facility] CPT-4: 91636 10/02/2017 ([id number]) 42351 EST. P ATIENT, LEVEL IV Diagnosis: Essential (primary) hypertension[ICD10: I10] Diagnosis: Type 2 diabetes mellitus with hyperglycemia[ICD10: E11.65] Diagnosis: Vitamin D deficiency, unspecified[ICD10: E55.9] Diagnosis: Mixed hyperlipidemia[ICD10: E78.2] Karmen Ash MD, [facility] CPT-4: 12710 07/23/2017 ([id number]) 64632 EST. P ATIENT, LEVEL IV Diagnosis: Essential (primary) hypertension[ICD10: I10] Diagnosis: Type 2 diabetes mellitus with hyperglycemia[ICD10: E11.65] Diagnosis: Chronic obstructive pulmonary disease, unspecified[ICD10: J44.9] Diagnosis: Nicotine dependence, unspecified, uncomplicated[ICD10: F17.200] Diagnosis: Encounter for immunization[ICD10: Z23] Karmen Ash MD, [facility] CPT-4: 78152 04/25/2017 ([id number]) 24336 EST. P ATIENT, LEVEL IV Diagnosis: Type 2 diabetes mellitus with hyperglycemia[ICD10: E11.65] Diagnosis: Essential (primary) hypertension[ICD10: I10] Diagnosis: Anemia, unspecified[ICD10: D64.9] Karmen Ash MD, [facility] CPT- 4: 58064 02/19/2017 ([id number]) 67550 EST. P ATIENT, LEVEL IV Diagnosis: Slow transit constipation[ICD10: K59.01] Diagnosis: Gastro-esophageal reflux disease without esophagitis[ICD10: K21.9] Diagnosis: Essential (primary) hypertension[ICD10: I10] Karmen Ash MD, [facility] CPT-4: 11592 01/21/2017 ([id number]) 42222 EST. P ATIENT, LEVEL IV Diagnosis: Type 2 diabetes mellitus with hyperglycemia[ICD10: E11.65] Diagnosis: Vitamin D deficiency, unspecified[ICD10: E55.9] Diagnosis: Essential (primary) hypertension[ICD10: I10] Diagnosis: Chronic obstructive pulmonary disease, unspecified[ICD10: J44.9] Karmen Ash MD, [facility] CPT-4: 34412 12/20/2016 ([id number]) 09971 EST. P ATIENT, LEVEL IV Diagnosis: Type 2 diabetes mellitus with hyperglycemia[ICD10: E11.65] Diagnosis: Essential (primary) hypertension[ICD10: I10] Diagnosis: Mixed hyperlipidemia[ICD10: E78.2] Diagnosis: Vitamin D deficiency, unspecified[ICD10: E55.9] Karmen Ash MD, [facility] CPT-4: 40218 08/23/2016 ([id number]) 09908 EST. P ATIENT, LEVEL IV Diagnosis: Type 2 diabetes mellitus with hyperglycemia[ICD10: E11.65] Diagnosis: Essential (primary) hypertension[ICD10: I10] Diagnosis: Chronic obstructive pulmonary disease, unspecified[ICD10: J44.9] Karmen Ash MD, [facility] CPT-4: 35168 05/22/2016 ([id number]) 51932 EST. P ATIENT, LEVEL III Diagnosis: Dysuria[ICD10: R30.0] Diagnosis: Essential (primary) hypertension[ICD10: I10] Karmen Ash MD, [facility] CPT-4: 17927 02/24/2016 ([id number]) 00278 EST. P ATIENT, LEVEL IV Diagnosis: Gastro-esophageal reflux disease without esophagitis[ICD10: K21.9] Diagnosis: Slow transit constipation[ICD10: K59.01] Diagnosis: Type 2 diabetes mellitus with hyperglycemia[ICD10: E11.65] Karmen Ash MD, [facility] CPT-4: 96657 01/27/2016 ([id number]) 62938 EST. P ATIENT, LEVEL IV Diagnosis: Essential (primary) hypertension[ICD10: I10] Diagnosis: Type 2 diabetes mellitus with hyperglycemia[ICD10: E11.65] Diagnosis: Vitamin D deficiency, unspecified[ICD10: E55.9] Diagnosis: Chronic obstructive pulmonary disease, unspecified[ICD10: J44.9] Diagnosis: Mixed hyperlipidemia[ICD10: E78.2] Diagnosis: Tobacco use[ICD10: Z72.0] Karmen Ash MD, [facility] CPT- 4: 50723 11/25/2015 ([id number]) 77512 EST. P ATIENT, LEVEL IV Diagnosis: Type 2 diabetes mellitus with hyperglycemia[ICD10: E11.65] Diagnosis: Essential (primary) hypertension[ICD10: I10] Diagnosis: Vitamin D deficiency, unspecified[ICD10: E55.9] [facility] CPT-4: 82223 07/28/2015 ([id number]) 38997 EST. P ATIENT, LEVEL III Diagnosis: Type 2 diabetes mellitus with hyperglycemia[ICD10: E11.65] Diagnosis: Essential (primary) hypertension[ICD10: I10] Violeta Ash MD, [facility] CPT-4: 57831 05/26/2015 ([id number]) 25941 EST. P ATIENT, LEVEL III Diagnosis: DIABETES TYPE II[ICD9: 250.00] Diagnosis: COPD (chronic obstructive pulmonary disease)[ICD9: 496] Diagnosis: ESSENTIAL HYPERTENSION[ICD9: 401.9] Diagnosis: Cough[ICD9: 786.2] Violeta Ash MD, [facility] CPT-4: 93890 05/06/2015 ([id number]) 16788 EST. P ATIENT, LEVEL III Diagnosis: COPD (chronic obstructive pulmonary disease)[ICD9: 496] Diagnosis: DIABETES TYPE II[ICD9: 250.00] Diagnosis: Muscle ache[ICD9: 729.1] [facility] CPT- 4: 59848 04/25/2015 ([id number]) 05655 EST. P ATIENT, LEVEL III Diagnosis: ACTINIC KERATOSIS[ICD9: 702.0] Diagnosis: COPD (chronic obstructive pulmonary disease)[ICD9: 496] Diagnosis: DIABETES TYPE II[ICD9: 250.00] Diagnosis: ACUTE URI[ICD9: 465.9] Violeta Ash MD, [facility] CPT-4: 24492 04/12/2015 ([id number]) 09333 EST. P ATIENT, LEVEL III Diagnosis: DIABETES TYPE II[ICD9: 250.00] Violeta Ash MD, [facility] CPT-4: 42995 03/24/2015 ([id number]) 27076 EST. P ATIENT, LEVEL IV Diagnosis: DIABETES TYPE II[ICD9: 250.00] Diagnosis: Hypoglycemia[ICD9: 251.2] Diagnosis: Skin texture changes[ICD9: 782.8] Violeta Ash MD, [facility] CPT-4: 69289 03/07/2015 ([id number]) 08255 EST. P ATIENT, LEVEL IV Diagnosis: COPD (chronic obstructive pulmonary disease)[ICD9: 496] Diagnosis: Fatigue[ICD9: 780.79] Diagnosis: Insulin dependent diabetes mellitus[ICD9: 250.00] Diagnosis: Unsteady gait[ICD9: 781.2] Maame Ash MD, [facility] CPT-4: 34268 02/17/2015 ([id number]) 12203 EST. P ATIENT, LEVEL IV Diagnosis: BPPV (benign paroxysmal positional vertigo)[ICD9: 386.11] Diagnosis: Impacted cerumen[ICD9: 380.4] Diagnosis: ESSENTIAL HYPERTENSION[ICD9: 401.9] Diagnosis: Insulin dependent diabetes mellitus[ICD9: 250.00] Karmen Ash MD, [facility] CPT-4: 25263 12/23/2014 ([id number]) [facility] LEVEL 4 Diagnosis: Insulin dependent diabetes mellitus[ICD9: 250.00] Diagnosis: BPPV (benign paroxysmal positional vertigo)[ICD9: 386.11] Diagnosis: COPD (chronic obstructive pulmonary disease)[ICD9: 496] Diagnosis: Tobacco abuse[ICD9: 305.1] Diagnosis: Osteoarthritis[ICD9: 715.90] [facility] CPT- 4: 76248 12/09/2014 Plan of Care Planned Activity Notes C odes Status Date Appointment: Karmen Espinal WPtel: [address] [place], [place] [phone] (30 min) [facility] 10/21/2018 Visit Plan: Orthostatic hypotension -recommend patient [...] walker 10/17/2018 Appointment: Karmen Espinal WPtel: [phone] [phone] (30 min) Complex [...] medications. 09/02/2018 Appointment: [phone] (15 min) Moderate 09/02/2018 Patient Education: Patient [...] surrogate. 06/30/2018 Appointment: [facility] Espinal [facility]Ptel[phone] [facility] - Annual Wellness Visit 06/30/2018 [...] in pain. 06/06/2018 Appointment: Karmen Espinal WPtel: [facility][note 3]4 [phone] (15 min) Moderate 06/06/2018 Patient Education: Patient [...] 2 months 04/04/2018 Appointment: Karmen Espinal WPtel: [phone] [phone] (15 min) Moderate 04/04/2018 Patient Education: Patient Medication Summary Completed 04/04/2018 Care Plan: Cbc With Differential Pending 04/04/2018 Care Plan: Testosterone repeat in 2 months Pending 04/04/2018 Appointment: Karmen Espinal WPtel: [phone] [phone] [place] (15 min) Moderate 03/25/2018 Visit Plan: Low back pain -history of kidney stone-UA negative today -increase fluids and call if pain does not resolve or if any worse. 03/07/2018 Appointment: Karmen Espinal WPtel: [phone] [phone] [place] (15 min) Moderate 03/07/2018 Patient Education: [...] 1 month 02/20/2018 Appointment: Karmen Espinal WPtel: [address] [place] [address] (15 min) Moderate 02/20/2018 Patient Education: Patient Medication Summary Completed 02/20/2018 Visit Plan: COPD EXACERBATION - PHARMACEUTICAL DETAILER D is a chronic problem for this [...] acute changes. 01/30/2018 Appointment: Karmen Espinal WPtel: [address] [place], [place] [phone] (15 min) Moderate 01/30/2018 Patient Education: Patient Medication Summary Completed 01/30/2018 Appointment: Karmen Espinal WPtel: [facility][note 3][address] [place] [phone] [place] [address] (15 min) Moderate 01/28/2018 Appointment: Injection 01/17/2018 Patient Education: Patient Medication Summary Completed 01/17/2018 Visit Plan: Cellulitis - start oral antibiotics as directed, return to clinic as previously directed, call for acute change in symptoms, worsening redness, warmth, discharge. 01/14/2018 Appointment: Karmen Espinal WPtel: [phone] (10 min) Simple 01/14/2018 Patient Education: [...] less controlled. 01/13/2018 Appointment: Karmen Espinal WPtel: [facility][note 3][address] (15 min) Moderate 01/13/2018 Patient Education: Patient Medication Summary Completed 01/13/2018 Referral: Hugo Villatoro HPtel:[phone] [place] [address] Patient's informed. Referral info ned monroy. Completed [...] change in blood pressure readings at home. Sqxotrgs-xqnawu-nrotx to see Dr Villatoro Constipation-start linzess daily 11/19/2017 Appointment: [facility] Espinal WPtel: [phone] (30 min) Complex 11/19/2017 Patient Education: Patient Medication Summary Completed 11/19/2017 Care Plan: Referral Order bloating, nausea SNOMED-CT : [id number] Pending 11/19/2017 Visit Plan: Low back pain- [...] changes. 10/02/2017 Appointment: Brunilda Maravilla WPtel: [phone] [facility] [place] (15 min) Moderate 10/02/2017 Patient Education: Patient [...] become less controlled. 07/23/2017 Appointment: Karmen Espinal WPte: [address] [place] [phone] (30 min) [facility] 07/23/2017 Patient Education: Patient Medication Summary Completed [...] Espinal WPtel: [phone] [phone] (30 min) Complex 04/25/2017 Patient Education: Patient [...] readings are starting to become less controlled. Rcajjf-lqvuhkd-lgpug labs 02/19/2017 Appointment: Karmen Espinal WPtel: [phone] (30 min) Complex 02/19/2017 Patient Education: Patient [...] Espinal WPtel: [phone] (30 min) Complex 01/21/2017 Patient Education: Patient Medication Summary Completed 01/21/2017 Patient Education: Smoking and Tobacco Addiction Completed 01/21/2017 Patient Education: Hypertension Completed 01/21/2017 Care Plan: Referral Order SNOMED-CT : 598114153 Pending 01/21/2017 Visit Plan: Diabetes Mellitus - [...] acute changes. 12/20/2016 Appointment: Karmen Espinal WPtel: [facility][note 3]5 [phone] (30 min) Complex 12/20/2016 Patient Education: Patient Medication Summary Completed 12/20/2016 Patient Education: Smoking and Tobacco Addiction Completed 12/20/2016 Patient Education: Hypertension Completed 12/20/2016 Appointment: Karmen Espinal WPtel: [phone] [phone] (30 min) Complex 09/06/2016 Visit Plan: Diabetes [...] d level 08/23/2016 Appointment: Karmen Espinal WPtel: [phone] [phone] (30 min) Complex 08/23/2016 Patient Education: Patient [...] acute changes. 05/22/2016 Appointment: Karmen Espinal WPtel: [phone] (30 min) Complex 05/22/2016 Patient Education: Patient Medication Summary Completed 05/22/2016 Patient Education: Smoking and Tobacco Addiction Completed 05/22/2016 Care Plan: Cbc With Differential Ordered 05/22/2016 Care Plan: %Hba1C LOCELINA C : 89814-4 Ordered 05/22/2016 Care Plan: Tsh Ordered 05/22/2016 [...] with update 02/24/2016 Appointment: Karmen Espinal WPtel: [facility][note 3][address] [place] [phone] (30 min) Complex 02/24/2016 Patient Education: Patient [...] [phone] (30 min) Complex 01/27/2016 Patient Education: Patient [...] use medication to assist cessation. COPD-sample of [facility] Hyperlipidemia - pt has been [...] Completed 05/06/2015 Visit Plan: COPD EXACERBATION - PHARMACEUTICAL DETAILER D is a chronic problem for this [...] POTENTIAL SIDE EFFECTS AND WORSENING OF SYMPTOMS. Fqyfipmw-tfrwceru-XXST SIMVASTATIN X 2 WEEKS AND CALL WITH [...] Care Plan: COMPLETE CBC AUTOMATED LOINC : 88378-5 Ordered 03/24/2015 Visit Plan: Diabetes Mellitus - [...] for removal. 03/07/2015 Appointment: Violeta Ash WPtel: [address] [place], [place] [id number] (15 min) Moderate 03/07/2015 Patient Education: Patient [...] Care Plan: COMPLETE CBC AUTOMATED LOINC : 72266-1 Ordered 12/23/2014 Visit Plan: BPPV - Benign [...] next appt 12/09/2014 Appointment: Karmen Espinal WPtel: [address] [place] [phone] [place] ([place]) New Patient 12/09/2014 Patient Education: Patient Medication Summary Completed 12/09/2014 Patient Education: .Amazing charts Parox ysmal positional vertigo Completed 12/09/2014 Patient Education: Smoking and Tobacco Addiction Completed 12/09/2014 Referral: Hugo Villatoro HPtel:[phone] [facility] [place] Referral Appointment Requested Referral: Luis Donohue [...] readings are starting to become less controlled. Ucwhmy-axjnxsb-kcqot labs . Cellulitis - start oral antibiotics [...] - posterior scalp - referral to Dr. Donoheu for removal. . Cerumen Impaction - The [...] change in blood pressure readings at home. Fvmemhyg-xnnqey-mjbzv to see Dr Villatoro Constipation-start linzess daily [...] POTENTIAL SIDE EFFECTS AND WORSENING OF SYMPTOMS. Urqndahn-dvsoguci-WTUV SIMVASTATIN X 2 WEEKS AND CALL WITH [...]
--- OUTSIDE RECORDS SUMMARY | 2020-03-29 08:55 | XMS REPORT | CCD ---
Author Author Dick Espinal Organization Violeta Ash MD, [facility] Address [address] [place] [address] Phone Care Team Providers Care Regional Planner Name Role Phone PP Unavailable CCM Unavailable Summary Purpose Interface Exchange Insurance Providers Payer name Policy type / Coverage type Covered constitution party ID Effective Begin Date Effective End Date WPS Medicare Part B Medicare Part B [id number] Unknown Unknown [employer] Medicar e Part B [id number] Unknown Unkn own Family history Father Diagnosis Age At Onset Cancer Unknown Mother Diagnosis Age At Onset Cancer Unknown Social History Social History Element Codes Description Effective Dates Marital status Unknown M arried 12/09/2014 Employment Unknown Retir ed 12/09/[address]: 99037782 Currently smokes tobacco 12/09/2014 Number of years using tobacco Unknown > 50 12/09/2014 Number of cigarettes/day Unknown 30 (Pack and a half) 12/09/[address]: 788354441 Never drinks alcohol 12/09/2014 Allergies, Adverse Reactions, [...] Date Stop Date Sta tus Fill Instructions meclizine 25 mg tablet RxNorm: 162074 1 Tablet(s) PO Q6 PRN TAKE ONE TABLET BY MOUTH EVERY 6 HOURS NEEDED 10/17/2018 01/14/2019 Active hydrocodone 5 mg-linh taminophen 325 mg tablet RxNorm: 873278 1 Tablet(s) PO Q6-8H as needed 10/17/2018 11/10/2018 Active metformin 500 mg tablet RxNorm: 030715 Tablet(s) TAKE 1 TABLET BY MOUTH DAILY 10/15/2018 10/09/2019 Ac tive lisinopril 10 mg tablet RxNorm: 910391 TAKE 1 TABLET BY MOUTH TWO TIMES DAILY 10/15/2018 10/09/2019 Ac tive - First Attempt Ref: [id number] testosterone cypiona te 200 mg/mL intramuscular oil RxNorm: 3403045 Milliliter(s) IM 10/14/2018 10/14/2018 In active Xanax 0.5 mg tablet RxNorm: 119119 1 Tablet(s) PO TID 10/03/2018 11/30/2018 Active testosterone cypiona te 200 mg/mL intramuscular oil RxNorm: 7903031 1/2 Milliliter(s) IM weekly 10/03/2018 01/30/2019 Active testosterone cypiona te 200 mg/mL intramuscular oil RxNorm: 8942073 Milliliter(s) IM 10/03/2018 10/03/2018 In active testosterone cypiona te 200 mg/mL intramuscular oil RxNorm: 1042772 Milliliter(s) IM 09/23/2018 09/23/2018 In active hydrocodone 5 mg-linh taminophen 325 mg tablet RxNorm: 149508 1 Tablet(s) PO Q6-8H as needed 09/22/2018 10/16/2018 Inactive testosterone cypiona te 200 mg/mL intramuscular oil RxNorm: 0531195 1/2 Milliliter(s) IM 09/02/2018 09/02/2018 Inactive testosterone enantha te 200 mg/mL intramuscular oil RxNorm: 509689 Milliliter(s) IM 08/21/2018 08/21/2018 In active hydrocodone 5 mg-linh taminophen 325 mg tablet RxNorm: 761218 1 Tablet(s) PO Q6-8H as needed 08/21/2018 09/14/2018 Inactive testosterone cypiona te 200 mg/mL intramuscular oil RxNorm: 6958925 Milliliter(s) IM 08/08/2018 08/08/2018 In active testosterone cypiona te 200 mg/mL intramuscular oil RxNorm: 0382515 1/2 Milliliter(s) IM 07/28/2018 07/28/2018 Inactive hydrocodone 5 mg-linh taminophen 325 mg tablet RxNorm: 967432 1 Tablet(s) PO Q6-8H as needed 07/21/2018 08/14/2018 Inactive testosterone cypiona te 200 mg/mL intramuscular oil RxNorm: 038423 Milliliter(s) IM 07/16/2018 07/16/2018 In active testosterone cypiona te 200 mg/mL intramuscular oil RxNorm: 896060 Milliliter(s) IM 07/02/2018 07/02/2018 In active Xanax 0.5 mg tablet RxNorm: 454234 1 Tablet(s) PO TID 06/27/2018 08/24/2018 Inactive testosterone cypiona te 200 mg/mL intramuscular oil RxNorm: 527680 Milliliter(s) IM 06/24/2018 06/24/2018 In active hydrocodone 5 mg-linh taminophen 325 mg tablet RxNorm: 140418 1 Tablet(s) PO Q6-8H as needed 06/23/2018 07/17/2018 Inactive testosterone cypiona te 200 mg/mL intramuscular oil RxNorm: 409654 Milliliter(s) IM 06/13/2018 06/13/2018 In active testosterone cypiona te 200 mg/mL intramuscular oil RxNorm: 644067 Milliliter(s) IM 06/05/2018 06/05/2018 In active testosterone cypiona te 200 mg/mL intramuscular oil RxNorm: 4287638 1/2 Milliliter(s) IM weekly 05/30/2018 09/26/2018 Inactive testosterone cypiona te 200 mg/mL intramuscular oil RxNorm: 332834 Milliliter(s) IM 05/30/2018 05/30/2018 In active testosterone cypiona te 200 mg/mL intramuscular oil RxNorm: 403935 Milliliter(s) IM 05/22/2018 05/22/2018 In active hydrocodone 5 mg-linh taminophen 325 mg tablet RxNorm: 121117 1 Tablet(s) PO Q6-8H as needed 05/20/2018 06/13/2018 Inactive testosterone cypiona te 200 mg/mL intramuscular oil RxNorm: 322306 1/2 Milliliter(s) IM 05/12/2018 05/12/2018 Inactive testosterone cypiona te 200 mg/mL intramuscular oil RxNorm: 585845 Milliliter(s) IM 05/02/2018 05/02/2018 In active testosterone cypiona te 200 mg/mL intramuscular oil RxNorm: 060310 1/2 Milliliter(s) IM weekly 04/24/2018 05/29/2018 Inactive testosterone cypiona te 200 mg/mL intramuscular oil RxNorm: 102196 0.5 Milliliter(s) IM 04/24/2018 04/24/2018 Inactive hydrocodone 5 mg-linh taminophen 325 mg tablet RxNorm: 562614 1 Tablet(s) PO Q6-8H as needed 04/22/2018 05/16/2018 Inactive testosterone cypiona te 200 mg/mL intramuscular oil RxNorm: 146947 1/2 Milliliter(s) IM 04/17/2018 04/17/2018 Inactive testosterone cypiona te 200 mg/mL intramuscular oil RxNorm: 468688 1/2 Milliliter(s) IM weekly 04/16/2018 04/23/2018 Inactive Jardiance 10 mg tablet RxNorm: 8746122 1 Tablet(s) PO daily 04/04/2018 12/29/2018 Active Protonix 40 mg table t,delayed release RxNorm: 902204 1 Tablet(s) PO daily TAKE 1 TABLET BY MOUTH DAILY 04/04/2018 03/29/2019 Active - Ref: [id number] testosterone cypiona te 200 mg/mL intramuscular oil RxNorm: 675904 1 Milliliter(s) IM monthly 04/04/2018 04/15/2018 Inactive hydrocodone 5 mg-linh taminophen 325 mg tablet RxNorm: 839386 1 Tablet(s) PO Q6-8H as needed 03/19/2018 04/12/2018 Inactive Flomax 0.4 mg capsule RxNorm: 348227 1 Capsule(s) PO daily 03/10/2018 03/04/2019 Active Urecholine 25 mg tablet RxNorm: 433424 1 Tablet(s) PO BID 03/10/2018 07/07/2018 Inactive ketorolac 60 mg/2 mL intramuscular solution RxNorm: 6597490 Milliliter(s) IM 03/07/2018 03/07/2018 In active metformin 500 mg tablet RxNorm: 315728 Tablet(s) TAKE 1 TABLET BY MOUTH DAILY 02/20/2018 02/13/2019 Ac tive 1 q am and 1/2 tab q pm hydrocodone 5 mg-linh taminophen 325 mg tablet RxNorm: 637373 1 Tablet(s) PO Q6-8H as needed 02/20/2018 03/16/2018 Inactive Kenalog 40 mg/mL bartolome pension for injection RxNorm: 9144912 1.5 Milliliter(s) In j 01/30/2018 01/30/2018 In active hydrocodone 5 mg-linh taminophen 325 mg tablet RxNorm: 107844 1 Tablet(s) PO Q6-8H as needed 01/23/2018 02/16/2018 Inactive Urecholine 25 mg tablet RxNorm: 861056 1 Tablet(s) PO BID 01/22/2018 03/09/2018 Inactive Flomax 0.4 mg capsule RxNorm: 436390 1 Capsule(s) PO daily 01/22/2018 03/09/2018 Inactive Flomax 0.4 mg capsule RxNorm: 553764 1 Capsule(s) PO daily 01/22/2018 01/21/2018 Inactive Urecholine 25 mg tablet RxNorm: 088777 1 Tablet(s) PO BID 01/22/2018 01/21/2018 Inactive testosterone cypiona te 200 mg/mL intramuscular oil RxNorm: 944835 Milliliter(s) IM 01/17/2018 01/17/2018 In active testosterone cypiona te 200 mg/mL intramuscular oil RxNorm: 083284 1 Milliliter(s) IM monthly 01/17/2018 04/03/2018 Inactive doxycycline hyclate 100 mg tablet RxNorm: 590852 1 Tablet(s) PO BID 01/14/2018 01/23/2018 Inactive lisinopril 10 mg tablet RxNorm: 574455 TAKE 1 TABLET BY MOUTH TWO TIMES DAILY 01/14/2018 10/14/2018 In active - First Attempt Ref: [id number] Xanax 0.5 mg tablet RxNorm: 968961 1 Tablet(s) PO TID 01/08/2018 04/06/2018 Inactive nystatin 100,000 uni t/mL oral suspension RxNorm: 463232 4 Milliliter(s) PO QI D Swish and swallow 01/08/2018 01/07/2018 Inactive nystatin 100,000 uni t/mL oral suspension RxNorm: 077974 4 Milliliter(s) PO QI D Swish and swallow 01/08/2018 01/12/2018 Inactive simvastatin 40 mg ta blet RxNorm: 113528 TAKE 1 TABLET BY MOUT H DAILY AT BEDTIME 12/30/2017 12/24/2018 Ac tive - First Attempt Ref: [id number] metformin 500 mg tablet RxNorm: 011571 TAKE 1 TABLET BY MOUTH DAILY 12/30/2017 02/19/2018 Inactive - First Attempt Ref: [id number] hydrocodone 5 mg-linh taminophen 325 mg tablet RxNorm: 764909 1 Tablet(s) PO Q6-8H as needed 12/25/2017 01/18/2018 Inactive Protonix 40 mg table t,delayed release RxNorm: 093732 Tablet(s) TAKE 1 TABL ET BY MOUTH DAILY 11/20/2017 04/03/2018 Inactive - Ref: [id number] Linzess 72 mcg capsule RxNorm: 2748214 1 Capsule(s) PO daily 11/19/2017 No Stop Date Active hydrocodone 5 mg-linh taminophen 325 mg tablet RxNorm: 622075 1 Tablet(s) PO Q6-8H as needed 11/19/2017 12/13/2017 Inactive hydrocodone 5 mg-linh taminophen 325 mg tablet RxNorm: 280756 1 Tablet(s) PO Q6-8H as needed 10/28/2017 11/18/2017 Inactive Xanax 0.5 mg tablet RxNorm: 270207 1 Tablet(s) PO TID 10/25/2017 12/22/2017 Inactive Xanax 0.5 mg tablet RxNorm: 082522 TAKE ONE TABLET BY MOUTH THREE TIMES A D AY 10/24/2017 12/22/2017 In active hydrocodone 5 mg-linh taminophen 325 mg tablet RxNorm: 544223 1 Tablet(s) PO Q6-8H as needed 09/30/2017 10/24/2017 Inactive Protonix 40 mg table t,delayed release RxNorm: 455932 TAKE 1 TABLET BY MOUT H DAILY 09/16/2017 11/19/2017 In active - Ref: [id number] Yovana WheeleroStar 300 unit/mL (1.5 mL) subcutaneous insulin pen RxNorm: 0933494 35 Unit(s) SQ QHS 08/30/2017 No Stop Date Active dosage increase hydrocodone 5 mg-linh taminophen 325 mg tablet RxNorm: 796530 1 Tablet(s) PO Q6-8H as needed 08/28/2017 09/29/2017 Inactive hydrocodone 5 mg-linh taminophen 325 mg tablet RxNorm: 288362 1 Tablet(s) PO Q6-8H as needed 07/23/2017 08/24/2017 Inactive lisinopril 10 mg tablet RxNorm: 278427 1 Tablet(s) PO BID Take 1 tablet by mout h daily 07/23/2017 01/13/2018 Inactive hydrocodone 5 mg-linh taminophen 325 mg tablet RxNorm: 645301 1 Tablet(s) PO Q6-8H as needed 06/27/2017 07/22/2017 Inactive Xanax 0.5 mg tablet RxNorm: 629909 1 Tablet(s) PO TID 06/18/2017 10/25/2017 Inactive hydrocodone 5 mg-linh taminophen 325 mg tablet RxNorm: 749083 1 Tablet(s) PO Q6-8H as needed 05/27/2017 06/26/2017 Inactive Levaquin 500 mg tablet RxNorm: 935206 1 Tablet(s) PO daily 05/24/2017 05/23/2017 Inactive Levaquin 500 mg tablet RxNorm: 746583 1 Tablet(s) PO daily 05/24/2017 05/30/2017 Inactive Protonix 40 mg table t,delayed release RxNorm: 912808 Take 1 tablet by mout h daily 04/29/2017 09/15/2017 In active - Ref: [id number] hydrocodone 5 mg-linh taminophen 325 mg tablet RxNorm: 049487 1 Tablet(s) PO Q6-8H as needed 04/25/2017 05/26/2017 Inactive metformin 500 mg tablet RxNorm: 148636 Take 1 tablet by mouth daily 04/08/2017 12/29/2017 Inactive - First Attempt Ref: [id number] hydrocodone 5 mg-linh taminophen 325 mg tablet RxNorm: 962315 1 Tablet(s) PO Q6-8H as needed 03/27/2017 04/24/2017 Inactive hydrocodone 5 mg-linh taminophen 325 mg tablet RxNorm: 653652 1 Tablet(s) PO Q6-8H as needed 02/25/2017 03/26/2017 Inactive Protonix 40 mg table t,delayed release RxNorm: 508734 Tablet(s) Take 1 tabl et by mouth BID 02/25/2017 04/28/2017 Inactive Protonix 40 mg table t,delayed release RxNorm: 255919 Tablet(s) Take 1 tabl et by mouth BID 02/19/2017 02/18/2017 Inactive Protonix 40 mg table t,delayed release RxNorm: 526947 Tablet(s) Take 1 tabl et by mouth BID 02/19/2017 02/24/2017 Inactive lisinopril 10 mg tablet RxNorm: 132823 Take 1 tablet by mouth daily 01/29/2017 07/22/2017 Inactive - First Attempt Ref: [id number] hydrocodone 5 mg-linh taminophen 325 mg tablet RxNorm: 485950 1 Tablet(s) PO Q6-8H as needed 01/25/2017 02/24/2017 Inactive simvastatin 40 mg ta blet RxNorm: 748563 Tablet(s) Take 1 tabl et by mouth daily at bedtime 01/03/2017 12/28/2017 Inactive lisinopril 10 mg tablet RxNorm: 975677 Tablet(s) Take 1 tablet by mouth daily 01/03/2017 01/28/2017 In active Protonix 40 mg table t,delayed release RxNorm: 664981 Tablet(s) Take 1 tabl et by mouth daily 12/28/2016 02/18/2017 Inactive hydrocodone 5 mg-linh taminophen 325 mg tablet RxNorm: 009321 1 Tablet(s) PO Q6-8H as needed 12/26/2016 01/24/2017 Inactive Xanax 0.5 mg tablet RxNorm: 759526 1 Tablet(s) PO TID 12/12/2016 03/11/2017 Inactive simvastatin 40 mg ta blet RxNorm: 788614 Tablet(s) Take 1 tabl et by mouth daily at bedtime 11/30/2016 01/02/2017 Inactive simvastatin 40 mg ta blet RxNorm: 871313 Take 1 tablet by mout h daily at bedtime 11/29/2016 11/29/2016 In active - First Attempt Ref: [id number] Protonix 40 mg table t,delayed release RxNorm: 758838 Take 1 tablet by mout h daily 11/27/2016 12/27/2016 In active - First Attempt Ref: [id number] hydrocodone 5 mg-linh taminophen 325 mg tablet RxNorm: 438971 1 Tablet(s) PO Q6-8H as needed 11/26/2016 12/25/2016 Inactive hydrocodone 5 mg-linh taminophen 325 mg tablet RxNorm: 730766 1 Tablet(s) PO Q8 as needed 10/24/2016 11/25/2016 Inactive Xanax 0.5 mg tablet RxNorm: 102535 1 Tablet(s) PO TID 10/09/2016 12/25/2016 Inactive hydrocodone 5 mg-linh taminophen 325 mg tablet RxNorm: 525295 1 Tablet(s) PO Q8 as needed 09/27/2016 10/23/2016 Inactive lisinopril 10 mg tablet RxNorm: 567639 Take 1 tablet by mouth daily 09/25/2016 01/02/2017 Inactive - First Attempt Ref: [id number] Vitamin D2 50,000 un it capsule RxNorm: 821475 1 Capsule(s) PO QW 09/06/2016 No Stop Date Active hydrocodone 5 mg-linh taminophen 325 mg tablet RxNorm: 245249 1 Tablet(s) PO Q8 as needed 08/28/2016 09/26/2016 Inactive Toujeo SoloStar 300 unit/mL (1.5 mL) subcutaneous insulin pen RxNorm: 5761960 25 Unit(s) SQ QHS 08/23/2016 08/29/2017 Inactive dosage increase hydrocodone 5 mg-linh taminophen 325 mg tablet RxNorm: 910837 1 Tablet(s) PO Q8 as needed 07/26/2016 08/27/2016 Inactive Protonix 40 mg table t,delayed release RxNorm: 940446 Take 1 tablet by mout h daily 07/24/2016 11/26/2016 In active - First Attempt Ref: [id number] hydrocodone 5 mg-linh taminophen 325 mg tablet RxNorm: 862104 1 Tablet(s) PO Q8 as needed 06/19/2016 07/21/2016 Inactive Yovana WheeleroStar 300 unit/mL (1.5 mL) subcutaneous insulin pen RxNorm: 2360707 32 Unit(s) SQ QHS 05/30/2016 08/22/2016 Inactive dosage increase hydrocodone 5 mg-linh taminophen 325 mg tablet RxNorm: 965226 1 Tablet(s) PO Q8 as needed 05/22/2016 06/18/2016 Inactive hydrocodone 5 mg-linh taminophen 325 mg tablet RxNorm: 150702 1 Tablet(s) PO Q8 as needed 04/18/2016 05/17/2016 Inactive Protonix 40 mg table t,delayed release RxNorm: 085128 Take 1 tablet by mout h daily 04/05/2016 07/03/2016 In active - Ref: [id number] metformin 500 mg tablet RxNorm: 652234 Take 1 tablet by mouth daily 04/04/2016 07/02/2016 Inactive - Ref: [id number] Xanax 0.5 mg tablet RxNorm: 170183 1 Tablet(s) PO TID 03/30/2016 09/25/2016 Inactive Xanax 0.5 mg tablet RxNorm: 582966 1 Tablet(s) PO TID 03/23/2016 12/25/2016 Inactive hydrocodone 5 mg-linh taminophen 325 mg tablet RxNorm: 626292 1 Tablet(s) PO Q8 as needed 03/06/2016 04/04/2016 Inactive Cipro 500 mg tablet RxNorm: 436504 1 Tablet(s) PO BID 02/24/2016 03/04/2016 Inactive Miralax 17 gram oral powder packet RxNorm: 288685 1 packet PO every oth er day 01/27/2016 No Stop Date Active hydrocodone 5 mg-linh taminophen 325 mg tablet RxNorm: 342898 1 Tablet(s) PO Q8 as needed 01/27/2016 02/25/2016 Inactive lisinopril 10 mg tablet RxNorm: 130816 1 Tablet(s) PO daily 01/12/2016 09/24/2016 Inactive simvastatin 40 mg ta blet RxNorm: 021673 1 Tablet(s) PO QHS 01/12/2016 11/28/2016 Inactive simvastatin 40 mg ta blet RxNorm: 762550 1 Tablet(s) PO QHS 01/11/2016 01/11/2016 Inactive lisinopril 10 mg tablet RxNorm: 791867 1 Tablet(s) PO daily 01/06/2016 01/11/2016 Inactive simvastatin 40 mg ta blet RxNorm: 362384 1 Tablet(s) PO daily 12/28/2015 01/10/2016 Inactive hydrocodone 5 mg-linh taminophen 325 mg tablet RxNorm: 259995 1 Tablet(s) PO Q8 as needed 12/27/2015 01/26/2016 Inactive Xanax 0.5 mg tablet RxNorm: 866820 1 Tablet(s) PO TID 11/30/2015 03/29/2016 Inactive Toujeo SoloStar 300 unit/mL (1.5 mL) subcutaneous insulin pen RxNorm: 0938989 30 Unit(s) SQ QHS 11/25/2015 05/29/2016 Inactive dosage increase meclizine 25 mg tablet RxNorm: 881290 1 Tablet(s) PO Q6 PRN TAKE ONE TABLET BY MOUTH EVERY 6 HOURS NEEDED 11/25/2015 02/22/2016 Inactive omeprazole 20 mg cap jacquelyn,delayed release RxNorm: 739088 1 Capsule(s) PO daily 10/06/2015 01/26/2016 In active Toujeo SoloStar 300 unit/mL (1.5 mL) subcutaneous insulin pen RxNorm: 5017259 35 Unit(s) SQ QHS 08/02/2015 11/24/2015 Inactive dosage increase Vitamin D2 50,000 un it capsule RxNorm: 351102 1 Capsule(s) PO QW 08/02/2015 09/05/2016 Inactive hydrocodone 5 mg-linh taminophen 325 mg tablet RxNorm: 167840 1 Tablet(s) PO Q8 as needed 07/11/2015 12/26/2015 Inactive Xanax 0.5 mg tablet RxNorm: 483738 1 Tablet(s) PO TID 06/30/2015 06/29/2015 Inactive Xanax 0.5 mg tablet RxNorm: 274195 1 Tablet(s) PO TID 06/30/2015 12/25/2015 Inactive hydrocodone 5 mg-linh taminophen 325 mg tablet RxNorm: 769054 1 Tablet(s) PO Q8 as needed 05/06/2015 07/10/2015 Inactive Symbicort 160 mcg-4. 5 mcg/actuation HFA aerosol inhaler RxNorm: 6097063 INH 04/25/2015 No Stop Date Active Levemir FlexTouch 10 0 unit/mL (3 mL) subcutaneous insulin pen RxNorm: 914115 30 Unit(s) SQ QHS 04/25/2015 11/24/2015 Inactive prednisone 20 mg tablet RxNorm: 195114 1 Tablet(s) PO BID 04/25/2015 04/29/2015 Inactive metformin 500 mg tablet RxNorm: 140156 1 Tablet(s) PO daily 04/25/2015 04/03/2016 Inactive amoxicillin 500 mg c apsule RxNorm: 311945 1 Capsule(s) PO TID 04/14/2015 04/13/2015 Inactive amoxicillin 500 mg c apsule RxNorm: 422870 1 Capsule(s) PO TID a nd recommend probiotic tid (otc) 04/14/2015 04/20/2015 Inactive Kenalog 40 mg/mL bartolome pension for injection RxNorm: 3276859 Milliliter(s) Inj 04/12/2015 04/12/2015 In active hydrocodone 5 mg-linh taminophen 325 mg tablet RxNorm: 705423 1 Tablet(s) PO Q8 as needed 03/30/2015 05/05/2015 Inactive Lantus 100 unit/mL s ubcutaneous solution RxNorm: 464356 25 Unit(s) SQ QPM 03/24/2015 04/25/2015 In active meclizine 25 mg tablet RxNorm: 838016 Tablet(s) TAKE ONE TABLET BY MOUTH EVERY 6 HOURS NEEDED 03/08/2015 04/06/2015 Inactive meclizine 25 mg tablet RxNorm: 195028 TAKE ONE TABLET BY MOUTH EVERY 6 HOURS A S NEEDED 02/25/2015 03/03/2015 Inactive Lantus 100 unit/mL s ubcutaneous solution RxNorm: 208610 20 Unit(s) SQ QPM 02/23/2015 03/23/2015 In active Lantus 100 unit/mL s ubcutaneous solution RxNorm: 767550 25 Unit(s) SQ QPM 02/23/2015 02/22/2015 In active hydrocodone 5 mg-linh taminophen 325 mg tablet RxNorm: 195917 1 Tablet(s) PO Q8 as needed 02/17/2015 03/29/2015 Inactive Xanax 0.5 mg tablet RxNorm: 897421 1 Tablet(s) PO TID 02/03/2015 06/29/2015 Inactive Lantus 100 unit/mL s ubcutaneous solution RxNorm: 387050 20 Unit(s) SQ QPM 12/29/2014 02/22/2015 In active Phenergan 12.5 mg re ctal suppository RxNorm: 582072 1 Suppository RTL Q6 PRN 12/23/2014 No Stop Date Active nausea Kenalog 40 mg/mL bartolome pension for injection RxNorm: 2957608 Milliliter(s) Inj 12/23/2014 12/23/2014 In active prednisone 20 mg tablet RxNorm: 081051 2 Tablet(s) PO daily 12/13/2014 12/17/2014 Inactive prednisone 20 mg tablet RxNorm: 182897 2 Tablet(s) PO daily 12/13/2014 12/12/2014 Inactive meclizine 25 mg tablet RxNorm: 669710 1 Tablet(s) PO Q6 PRN 12/09/2014 02/24/2015 Inactive hydrocodone 5 mg-linh taminophen 325 mg tablet RxNorm: 312954 1 Tablet(s) PO Q8 as needed 12/09/2014 02/16/2015 Inactive Vitamin B-12 1,000 m cg/mL oral drops RxNorm: 8862994 1 Milliliter(s) PO d aily No Start Date Active Alphagan P 0.1 % eye drops RxNorm: 089143 1 Drop(s) OPH BID No Start Date Active aspirin 325 mg table t,delayed release RxNorm: 121940 1 Tablet(s) PO daily No Start Date Active Tricor 145 mg tablet RxNorm: 587127 1 Tablet(s) PO daily No Start Date Active vitamin [id number] B1 oral liquid RxNorm: 1,000 Microgram(s) PO daily No Start Date Active atenolol 50 mg tablet RxNorm: 389077 1 Tablet(s) PO daily No Start Date Active Protonix 40 mg table t,delayed release RxNorm: 764256 1 Tablet(s) PO daily No Start Date 04/04/2016 Inactive glipizide 10 mg tablet RxNorm: 760700 1 Tablet(s) PO BID No Start Date 03/22/2015 Inactive Lantus 100 unit/mL s ubcutaneous solution RxNorm: 574919 15 Unit(s) SQ QPM No Start Date 12/28/2014 Inactive lisinopril 10 mg tablet RxNorm: 463762 1 Tablet(s) PO daily No Start Date 01/05/2016 Inactive Vitamin D2 50,000 un it capsule RxNorm: 126665 1 Capsule(s) PO QW No Start Date 08/01/2015 Inactive Toujeo SoloStar 300 unit/mL (1.5 mL) subcutaneous insulin pen RxNorm: 9197998 30 Unit(s) SQ QHS No Start Date 08/01/2015 Inactive simvastatin 40 mg ta blet RxNorm: 160440 1 Tablet(s) PO daily No Start Date 12/27/2015 Inactive testosterone cypiona te 200 mg/mL intramuscular oil RxNorm: 746926 1 Milliliter(s) IM monthly No Start Date 01/16/2018 Inactive hydrocodone 5 mg-linh taminophen 325 mg tablet RxNorm: 753136 1 Tablet(s) PO Q8 as needed No Start Date 12/08/2014 Inactive metformin 500 mg tablet RxNorm: 684168 1 Tablet(s) PO daily No Start Date 04/24/2015 Inactive omeprazole 20 mg cap jacquelyn,delayed release RxNorm: 120688 1 Capsule(s) PO daily No Start Date 10/05/2015 Inactive Flomax 0.4 mg capsule RxNorm: 609153 1 Capsule(s) PO daily No Start Date 03/23/2015 Inactive Medication Administered Medication Codes Instruc tions Start Date Status testosterone cypionate 200 mg/mL intramuscular oil RxNorm: 8721736 Milliliter 10/14/2018 No longer Active testosterone cypionate 200 mg/mL intramuscular oil RxNorm: 1118902 Milliliter 10/03/2018 No longer Active testosterone cypionate 200 mg/mL intramuscular oil RxNorm: 9530369 Milliliter 09/23/2018 No longer Active testosterone cypionate 200 mg/mL intramuscular oil RxNorm: 9211292 1/2Milliliter 09/02/2018 No longer Active testosterone enanthate 200 mg/mL intramuscular oil RxNorm: 586867 Milliliter 08/21/2018 No longer Active testosterone cypionate 200 mg/mL intramuscular oil RxNorm: 1071761 Milliliter 08/08/2018 No longer Active testosterone cypionate 200 mg/mL intramuscular oil RxNorm: 3628625 2Milliliter 07/28/2018 No longer Active testosterone cypionate 200 mg/mL intramuscular oil RxNorm: 022015 Milliliter 07/16/2018 No longer Active testosterone cypionate 200 mg/mL intramuscular oil RxNorm: 836535 Milliliter 07/02/2018 No longer Active testosterone cypionate 200 mg/mL intramuscular oil RxNorm: 561373 Milliliter 06/24/2018 No longer Active testosterone cypionate 200 mg/mL intramuscular oil RxNorm: 352744 Milliliter 06/13/2018 No longer Active testosterone cypionate 200 mg/mL intramuscular oil RxNorm: 253571 Milliliter 06/05/2018 No longer Active testosterone cypionate 200 mg/mL intramuscular oil RxNorm: 908208 Milliliter 05/30/2018 No longer Active testosterone cypionate 200 mg/mL intramuscular oil RxNorm: 614682 Milliliter 05/22/2018 No longer Active testosterone cypionate 200 mg/mL intramuscular oil RxNorm: 633478 2Milliliter 05/12/2018 No longer Active testosterone cypionate 200 mg/mL intramuscular oil RxNorm: 580843 Milliliter 05/02/2018 No longer Active testosterone cypionate 200 mg/mL intramuscular oil RxNorm: 680230 0.5Milliliter 04/24/2018 No longer Active testosterone cypionate 200 mg/mL intramuscular oil RxNorm: 495470 /2Milliliter 04/17/2018 No longer Active ketorolac 60 mg/2 mL intramuscular solution RxNorm: 4392021 Milliliter 03/07/2018 No longer Active Kenalog 40 mg/mL suspension for injection RxNorm: 2634334 1.5Milliliter 01/30/2018 No longer Active testosterone cypionate 200 mg/mL intramuscular oil RxNorm: 043008 Milliliter 01/17/2018 No longer Active Kenalog 40 mg/mL suspension for injection RxNorm: 6967087 Milliliter 04/12/2015 No longer Active Kenalog 40 mg/mL suspension for injection RxNorm: 8860017 Milliliter 12/23/2014 No longer Active Immunizations Vaccine [...] Code Item Item Code Result Date Testosterone Zqb906 Testo 669.0 ng/dL 09/08/2018 %Hba1C Fmc139 % HbA1c 29736-2 7.4 % 09/08/2018 %Hba1C Eqe924 Gluc Ave 166 mg/dL 09/08/2018 Lipid Ord30 CHOL 114 mg/dL 09/08/2018 Lipid Ord30 HDL 28.0 mg/dl 09/08/2018 Lipid Ord30 TRIG 154 mg/dL 09/08/2018 Lipid Ord30 LDL 55 mg/dL 09/08/2018 Lipid Ord30 C/HDL 4.1 Ratio 09/08/2018 Comp Metabolic Qor175 NA 137 mEq/L 09/08/2018 Comp Metabolic Phg252 K 4.3 mEq/L 09/08/2018 Comp Metabolic Gqg378 CL 100 mEq/L 09/08/2018 Comp Metabolic Pvb721 CO2 27.0 mEq/L 09/08/2018 Comp Metabolic Bnx547 AN ION GAP 14 09/08/2018 Comp Metabolic Bvb495 GL UCOSE 85 mg/dL 09/08/2018 Comp Metabolic Sit436 Cr eat 1.1 mg/dL 09/08/2018 Comp Metabolic Uym953 eG FR 70 ml/min/1.73m2 09/08 Comp Metabolic Edv529 BUN 11 mg/dL 09/08/2018 Comp Metabolic Xon980 B/ C Ratio 10.3 Ratio 09/08/2018 Comp Metabolic Pib392 CA LCIUM 9.2 mg/dL 09/08/2018 Comp Metabolic Glf105 AL K PHOS 65 U/L 09/08/2018 Comp Metabolic Zrk790 T(SGOT) 16 U/L 09/08/2018 Comp Metabolic Yey859 AL T(SGPT) 14 U/L 09/08/2018 Comp Metabolic Tvc174 BI LI T 0.6 mg/dL 09/08/2018 Comp Metabolic Atl665 AL BUMIN 4.0 g/dL 09/08/2018 Comp Metabolic Ftn407 TP RO 6.6 g/dL 09/08/2018 Comp Metabolic Bnu986 GL OB 2.6 g/dL 09/08/2018 Comp Metabolic Kcm964 A/ G Ratio 1.6 Ratio 09/08/2018 Comp Metabolic Ymy629 Os mo 272 mOsmo 09/08/2018 Vitamin D 25 Oh Pvz8216 VITAMIN D, 25 HYDROXY 37.17 ng/mL 09/08/2018 [...] 33.3 pg 09/08/2018 Cbc With Differential Ord2 [place]% 8.1 % 09/08/2018 Cbc With Differential Ord2 [...] 2.44 K/ul 09/08/2018 Cbc With Differential Ord2 [place] ABS# 0.6 K/ul 09/08/2018 Cbc With Differential Ord2 Eos ABS# 0.3 K/ul 09/08/2018 Cbc With Differential Ord2 Baso ABS# 0.0 K/ul 09/08/2018 Tsh Ord6 TSH (3rd IS) 2.72 uIU/mL 09/08/2018 Comp Metabolic Yrk306 NA 139 mEq/L 04/01/2018 Comp Metabolic Wfb142 K 4.2 mEq/L 04/01/2018 Comp Metabolic Lut432 CL 102 mEq/L 04/01/2018 Comp Metabolic Zrr744 CO2 29.0 mEq/L 04/01/2018 Comp Metabolic Rpx385 AN ION GAP 12 04/01/2018 Comp Metabolic Vns432 GL UCOSE 87 mg/dL 04/01/2018 Comp Metabolic Hdc652 Cr eat 1.1 mg/dL 04/01/2018 Comp Metabolic Ybd973 eG FR 70 ml/min/1.73m2 04/01 Comp Metabolic Qhh380 BUN 21 mg/dL 04/01/2018 Comp Metabolic Kdk325 B/ C Ratio 19.4 Ratio 04/01/2018 Comp Metabolic Qtc219 CA LCIUM 9.1 mg/dL 04/01/2018 Comp Metabolic Ucu171 AL K PHOS 60 U/L 04/01/2018 Comp Metabolic Obg608 T(SGOT) 15 U/L 04/01/2018 Comp Metabolic Xcq398 AL T(SGPT) 18 U/L 04/01/2018 Comp Metabolic Edf089 BI LI T 0.4 mg/dL 04/01/2018 Comp Metabolic Oss724 AL BUMIN 4.0 g/dL 04/01/2018 Comp Metabolic Aju109 TP RO 6.5 g/dL 04/01/2018 Comp Metabolic Lzc031 GL OB 2.5 g/dL 04/01/2018 Comp Metabolic Vlf748 A/ G Ratio 1.6 Ratio 04/01/2018 Comp Metabolic Hyo132 Os mo 280 mOsmo 04/01/2018 Lipid Ord30 [...] 34.3 pg 04/01/2018 Cbc With Differential Ord2 [place]% 6.0 % 04/01/2018 Cbc With Differential Ord2 [...] 3.25 K/ul 04/01/2018 Cbc With Differential Ord2 [place] ABS# 0.6 K/ul 04/01/2018 Cbc With Differential Ord2 Eos ABS# 0.4 K/ul 04/01/2018 Cbc With Differential Ord2 Baso ABS# 0.0 K/ul 04/01/2018 %Hba1C Cjj833 % HbA1c 05693-6 8.0 % 04/01/2018 %Hba1C Idq301 Gluc Ave 183 mg/dL 04/01/2018 Testosterone Czw832 Testo 111.3 ng/dL 04/01/2018 Testosterone Psj842 Testo 135.4 ng/dL 01/14/2018 Cbc With Differential [...] 36.0 pg 01/14/2018 Cbc With Differential Ord2 [place]% 6.8 % 01/14/2018 Cbc With Differential Ord2 [...] 2.71 K/ul 01/14/2018 Cbc With Differential Ord2 [place] ABS# 0.8 K/ul 01/14/2018 Cbc With Differential Ord2 Eos ABS# 0.2 K/ul 01/14/2018 Cbc With Differential Ord2 Baso ABS# 0.0 K/ul 01/14/2018 Comp Metabolic Zby159 NA 134 mEq/L 11/20/2017 Comp Metabolic Tgo955 K 4.4 mEq/L 11/20/2017 Comp Metabolic Nnm663 CL 99 mEq/L 11/20/2017 Comp Metabolic Qzm075 CO2 29.0 mEq/L 11/20/2017 Comp Metabolic Lxn639 AN ION GAP 10 11/20/2017 Comp Metabolic Wig253 GL UCOSE 218 mg/dL 11/20/2017 Comp Metabolic Ylq529 Cr eat 1.0 mg/dL 11/20/2017 Comp Metabolic Zaw316 eG FR 78 ml/min/1.73m2 11/20 Comp Metabolic Cpl188 BUN 13 mg/dL 11/20/2017 Comp Metabolic Pef348 B/ C Ratio 13.3 Ratio 11/20/2017 Comp Metabolic Rpp670 CA LCIUM 9.0 mg/dL 11/20/2017 Comp Metabolic Ark341 AL K PHOS 71 U/L 11/20/2017 Comp Metabolic Yxa665 T(SGOT) 18 U/L 11/20/2017 Comp Metabolic Wtt965 AL T(SGPT) 17 U/L 11/20/2017 Comp Metabolic Spu887 BI LI T 0.4 mg/dL 11/20/2017 Comp Metabolic Rvz061 AL BUMIN 4.1 g/dL 11/20/2017 Comp Metabolic Tlj118 TP RO 6.5 g/dL 11/20/2017 Comp Metabolic Ovi296 GL OB 2.4 g/dL 11/20/2017 Comp Metabolic Chk015 A/ G Ratio 1.8 Ratio 11/20/2017 Comp Metabolic Ves478 Os mo 275 mOsmo 11/20/2017 Cbc With [...] 35.2 pg 11/20/2017 Cbc With Differential Ord2 [place]% 7.2 % 11/20/2017 Cbc With Differential Ord2 [...] 3.34 K/ul 11/20/2017 Cbc With Differential Ord2 [place] ABS# 0.6 K/ul 11/20/2017 Cbc With Differential Ord2 Eos ABS# 0.3 K/ul 11/20/2017 Cbc With Differential Ord2 Baso ABS# 0.0 K/ul 11/20/2017 Vitamin D 25 Oh Xsk6657 VITAMIN D, 25 HYDROXY 43.72 ng/mL 11/20/2017 %Hba1C Wfq038 % HbA1c 64508-8 7.4 % 11/20/2017 %Hba1C Jwx068 Gluc Ave 166 mg/dL 11/20/2017 %Hba1C Vgt621 % HbA1c 23768-1 7.2 % 08/20/2017 %Hba1C Ueu339 Gluc Ave 160 mg/dL 08/20/2017 Lipid Ord30 [...] 34.7 pg 08/20/2017 Cbc With Differential Ord2 [place]% 7.6 % 08/20/2017 Cbc With Differential Ord2 [...] 2.42 K/ul 08/20/2017 Cbc With Differential Ord2 [place] ABS# 0.6 K/ul 08/20/2017 Cbc With Differential Ord2 Eos ABS# 0.3 K/ul 08/20/2017 Cbc With Differential Ord2 Baso ABS# 0.0 K/ul 08/20/2017 Tsh Ord6 hTSH II 2.27 uIU/mL 08/20/2017 Comp Metabolic Scn703 NA 138 mEq/L 08/20/2017 Comp Metabolic Azp396 K 4.3 mEq/L 08/20/2017 Comp Metabolic Wfl928 CL 102 mEq/L 08/20/2017 Comp Metabolic Gzn892 CO2 29.0 mEq/L 08/20/2017 Comp Metabolic Zks193 AN ION GAP 11 08/20/2017 Comp Metabolic Ajj301 GL UCOSE 89 mg/dL 08/20/2017 Comp Metabolic Ugb314 Cr eat 1.0 mg/dL 08/20/2017 Comp Metabolic Nsy162 eG FR 80 ml/min/1.73m2 08/20 Comp Metabolic Hnw511 BUN 13 mg/dL 08/20/2017 Comp Metabolic Ptb722 B/ C Ratio 13.5 Ratio 08/20/2017 Comp Metabolic Vnb086 CA LCIUM 9.2 mg/dL 08/20/2017 Comp Metabolic Stp452 AL K PHOS 69 U/L 08/20/2017 Comp Metabolic Szq002 T(SGOT) 18 U/L 08/20/2017 Comp Metabolic Bpt305 AL T(SGPT) 19 U/L 08/20/2017 Comp Metabolic Yhb366 BI LI T 0.6 mg/dL 08/20/2017 Comp Metabolic Vum872 AL BUMIN 4.0 g/dL 08/20/2017 Comp Metabolic Pzu538 TP RO 6.6 g/dL 08/20/2017 Comp Metabolic Qsg602 GL OB 2.6 g/dL 08/20/2017 Comp Metabolic Jlp321 A/ G Ratio 1.5 Ratio 08/20/2017 Comp Metabolic Xns668 Os mo 275 mOsmo 08/20/2017 Vitamin D 25 Oh Ptx7827 VITAMIN D, 25 HYDROXY 30.96 ng/mL 08/20/2017 B12 Jky523 B12 >1500.00 pg/ml 02/22/2017 Cbc With Differential [...] 35.7 pg 02/20/2017 Cbc With Differential Ord2 [place]% 6.3 % 02/20/2017 Cbc With Differential Ord2 [...] 3.19 K/ul 02/20/2017 Cbc With Differential Ord2 [place] ABS# 0.5 K/ul 02/20/2017 Cbc With Differential Ord2 Eos ABS# 0.4 K/ul 02/20/2017 Cbc With Differential Ord2 Baso ABS# 0.0 K/ul 02/20/2017 Comp Metabolic Oex790 NA 138 mEq/L 02/20/2017 Comp Metabolic Tpf493 K 4.5 mEq/L 02/20/2017 Comp Metabolic Xoy370 CL 101 mEq/L 02/20/2017 Comp Metabolic Igl809 CO2 31.0 mEq/L 02/20/2017 Comp Metabolic Tve306 AN ION GAP 11 02/20/2017 Comp Metabolic Mby904 GL UCOSE 120 mg/dL 02/20/2017 Comp Metabolic Qir122 Cr eat 0.9 mg/dL 02/20/2017 Comp Metabolic Seb896 eG FR 83 ml/min/1.73m2 02/20 Comp Metabolic Bjf151 BUN 15 mg/dL 02/20/2017 Comp Metabolic Gop682 B/ C Ratio 16.1 Ratio 02/20/2017 Comp Metabolic Joi465 CA LCIUM 9.1 mg/dL 02/20/2017 Comp Metabolic Lov973 AL K PHOS 67 U/L 02/20/2017 Comp Metabolic Iqd821 T(SGOT) 15 U/L 02/20/2017 Comp Metabolic Sud618 AL T(SGPT) 16 U/L 02/20/2017 Comp Metabolic Piz721 BI LI T 0.5 mg/dL 02/20/2017 Comp Metabolic Xxs659 AL BUMIN 4.0 g/dL 02/20/2017 Comp Metabolic Pzs712 TP RO 6.4 g/dL 02/20/2017 Comp Metabolic Mlr828 GL OB 2.4 g/dL 02/20/2017 Comp Metabolic Djp516 A/ G Ratio 1.7 Ratio 02/20/2017 Comp Metabolic Duu741 Os mo 278 mOsmo 02/20/2017 Tsh Ord6 hTSH II 2.05 uIU/mL 02/20/2017 %Hba1C Izx008 % HbA1c 20583-7 7.6 % 02/20/2017 %Hba1C Bcd929 Gluc Ave 171 mg/dL 02/20/2017 Vitamin D 25 Oh Kbs5293 VITAMIN D, 25 HYDROXY 44.40 ng/mL 12/21/2016 Comp Metabolic Rqd470 NA 131 mEq/L 12/21/2016 Comp Metabolic Oto603 K 4.2 mEq/L 12/21/2016 Comp Metabolic Pxp839 CL 97 mEq/L 12/21/2016 Comp Metabolic Mae404 CO2 27.0 mEq/L 12/21/2016 Comp Metabolic Xdf926 AN ION GAP 11 12/21/2016 Comp Metabolic Dmu729 GL UCOSE 266 mg/dL 12/21/2016 Comp Metabolic Xwx045 Cr eat 0.9 mg/dL 12/21/2016 Comp Metabolic Kbs687 eG FR 88 ml/min/1.73m2 12/21 Comp Metabolic Imv743 BUN 12 mg/dL 12/21/2016 Comp Metabolic Hku318 B/ C Ratio 13.6 Ratio 12/21/2016 Comp Metabolic Mij470 CA LCIUM 8.6 mg/dL 12/21/2016 Comp Metabolic Uej722 AL K PHOS 69 U/L 12/21/2016 Comp Metabolic Kqg678 T(SGOT) 15 U/L 12/21/2016 Comp Metabolic Viq669 AL T(SGPT) 14 U/L 12/21/2016 Comp Metabolic Agz384 BI LI T 0.3 mg/dL 12/21/2016 Comp Metabolic Mmt159 AL BUMIN 3.7 g/dL 12/21/2016 Comp Metabolic Ikc901 TP RO 5.9 g/dL 12/21/2016 Comp Metabolic Akg602 GL OB 2.2 g/dL 12/21/2016 Comp Metabolic Two864 A/ G Ratio 1.7 Ratio 12/21/2016 Comp Metabolic Ofv581 Os mo 272 mOsmo 12/21/2016 Cbc With [...] 34.6 pg 12/21/2016 Cbc With Differential Ord2 [place]% 6.9 % 12/21/2016 Cbc With Differential Ord2 [...] 2.05 K/ul 12/21/2016 Cbc With Differential Ord2 [place] ABS# 0.4 K/ul 12/21/2016 Cbc With Differential Ord2 Eos ABS# 0.2 K/ul 12/21/2016 Cbc With Differential Ord2 Baso ABS# 0.0 K/ul 12/21/2016 Comp Metabolic Fhb182 NA 138 mEq/L 09/03/2016 Comp Metabolic Lso469 K 4.5 mEq/L 09/03/2016 Comp Metabolic Ysc797 CL 102 mEq/L 09/03/2016 Comp Metabolic Ath297 CO2 30.0 mEq/L 09/03/2016 Comp Metabolic Bgy950 AN ION GAP 11 09/03/2016 Comp Metabolic Zal239 GL UCOSE 113 mg/dL 09/03/2016 Comp Metabolic Kht209 Cr eat 1.0 mg/dL 09/03/2016 Comp Metabolic Lmv909 eG FR 81 ml/min/1.73m2 09/03 Comp Metabolic Aiu224 BUN 10 mg/dL 09/03/2016 Comp Metabolic Cig891 B/ C Ratio 10.5 Ratio 09/03/2016 Comp Metabolic Jvj093 CA LCIUM 9.1 mg/dL 09/03/2016 Comp Metabolic Cfy665 AL K PHOS 71 U/L 09/03/2016 Comp Metabolic Ctx787 T(SGOT) 18 U/L 09/03/2016 Comp Metabolic Han428 AL T(SGPT) 17 U/L 09/03/2016 Comp Metabolic Ets749 BI LI T 0.6 mg/dL 09/03/2016 Comp Metabolic Pss401 AL BUMIN 4.1 g/dL 09/03/2016 Comp Metabolic Gdh226 TP RO 6.4 g/dL 09/03/2016 Comp Metabolic Bvl582 GL OB 2.3 g/dL 09/03/2016 Comp Metabolic Fsu423 A/ G Ratio 1.8 Ratio 09/03/2016 Comp Metabolic Kvm027 Os mo 276 mOsmo 09/03/2016 Vitamin D 25 Oh Ils6021 VITAMIN D, 25 HYDROXY 28.23 ng/mL 09/03/2016 [...] 34.4 pg 09/03/2016 Cbc With Differential Ord2 [place]% 8.9 % 09/03/2016 Cbc With Differential Ord2 [...] 3.34 K/ul 09/03/2016 Cbc With Differential Ord2 [place] ABS# 0.7 K/ul 09/03/2016 Cbc With Differential Ord2 Eos ABS# 0.4 K/ul 09/03/2016 Cbc With Differential Ord2 Baso ABS# 0.0 K/ul 09/03/2016 Lipid Ord30 CHOL 120 mg/dL 09/03/2016 Lipid Ord30 HDL 33.0 mg/dl 09/03/2016 Lipid Ord30 TRIG 161 mg/dL 09/03/2016 Lipid Ord30 LDL 55 mg/dL 09/03/2016 Lipid Ord30 C/HDL 3.6 Ratio 09/03/2016 %Hba1C Xnc037 % HbA1c 33884-7 7.5 % 09/03/2016 %Hba1C Zba713 Gluc Ave 169 mg/dL 09/03/2016 Tsh Ord6 hTSH II 1.50 uIU/mL 05/23/2016 %Hba1C Eom628 % HbA1c 54876-3 7.6 % 05/23/2016 %Hba1C Sws772 Gluc Ave 171 mg/dL 05/23/2016 Comp Metabolic Gdz417 NA 135 mEq/L 05/23/2016 Comp Metabolic Kyu426 K 4.4 mEq/L 05/23/2016 Comp Metabolic Iqd820 CL 99 mEq/L 05/23/2016 Comp Metabolic Rmx086 CO2 28.0 mEq/L 05/23/2016 Comp Metabolic Heq797 AN ION GAP 12 05/23/2016 Comp Metabolic Zrt233 GL UCOSE 257 mg/dL 05/23/2016 Comp Metabolic Cig398 Cr eat 0.8 mg/dL 05/23/2016 Comp Metabolic Ifq464 eG FR 95 ml/min/1.73m2 05/23 Comp Metabolic Xrd975 BUN 11 mg/dL 05/23/2016 Comp Metabolic Hcx157 B/ C Ratio 13.3 Ratio 05/23/2016 Comp Metabolic Egt976 CA LCIUM 9.0 mg/dL 05/23/2016 Comp Metabolic Fkp708 AL K PHOS 82 U/L 05/23/2016 Comp Metabolic Sjx941 T(SGOT) 21 U/L 05/23/2016 Comp Metabolic Kgw474 AL T(SGPT) 20 U/L 05/23/2016 Comp Metabolic Tbz964 BI LI T 0.3 mg/dL 05/23/2016 Comp Metabolic Efy491 AL BUMIN 4.0 g/dL 05/23/2016 Comp Metabolic Vlv052 TP RO 6.4 g/dL 05/23/2016 Comp Metabolic Xeo198 GL OB 2.4 g/dL 05/23/2016 Comp Metabolic Xgg037 A/ G Ratio 1.6 Ratio 05/23/2016 Comp Metabolic Mkp646 Os mo 278 mOsmo 05/23/2016 Cbc With [...] 34.5 pg 05/23/2016 Cbc With Differential Ord2 [place]% 6.1 % 05/23/2016 Cbc With Differential Ord2 [...] 2.38 K/ul 05/23/2016 Cbc With Differential Ord2 [place] ABS# 0.4 K/ul 05/23/2016 Cbc With Differential Ord2 Eos ABS# 0.2 K/ul 05/23/2016 Cbc With Differential Ord2 Baso ABS# 0.0 K/ul 05/23/2016 B12 Afp919 B12 597.00 pg/ml 05/23/2016 Metabolic Ord15 NA [...] 0.92 uIU/mL 07/29/2015 Vitamin D 25 Oh Wlg6071 VITAMIN D, 25 HYDROXY 26.93 ng/mL 07/29/2015 %Hba1C Cdq416 % HbA1c 75937-6 8.8 % 07/29/2015 %Hba1C Tku948 Gluc Ave 206 mg/dL 07/29/2015 Cbc With [...] Ord2 RDW 14.9 % 07/29/2015 Comp Metabolic Ytc337 NA 138 mEq/L 07/29/2015 Comp Metabolic Oih414 K 4.4 mEq/L 07/29/2015 Comp Metabolic Rxt453 CL 102 mEq/L 07/29/2015 Comp Metabolic Gvw091 CO2 28.0 mEq/L 07/29/2015 Comp Metabolic Uah110 AN ION GAP 12 07/29/2015 Comp Metabolic Cwz039 GL UCOSE 261 mg/dL 07/29/2015 Comp Metabolic Mny574 Cr eat 1.0 mg/dL 07/29/2015 Comp Metabolic Mae682 eG FR 77 ml/min/1.73m2 07/29 Comp Metabolic Pts406 BUN 13 mg/dL 07/29/2015 Comp Metabolic Krp997 B/ C Ratio 13.0 Ratio 07/29/2015 Comp Metabolic Lhx921 CA LCIUM 9.1 mg/dL 07/29/2015 Comp Metabolic Kwm215 AL K PHOS 64 U/L 07/29/2015 Comp Metabolic Shm728 T(SGOT) 20 U/L 07/29/2015 Comp Metabolic Upr896 AL T(SGPT) 22 U/L 07/29/2015 Comp Metabolic Vuc640 BI LI T 0.4 mg/dL 07/29/2015 Comp Metabolic Avt472 AL BUMIN 4.0 g/dL 07/29/2015 Comp Metabolic Aht005 TP RO 6.1 g/dL 07/29/2015 Comp Metabolic Zkn910 GL OB 2.1 g/dL 07/29/2015 Comp Metabolic Fwo757 A/ G Ratio 1.9 Ratio 07/29/2015 Comp Metabolic Idd302 Os mo 285 mOsmo 07/29/2015 Cbc With [...] Ord2 RDW 13.1 % 05/06/2015 Comp Metabolic Vlv543 NA 134 mEq/L 05/06/2015 Comp Metabolic Hzl003 K 4.4 mEq/L 05/06/2015 Comp Metabolic Uxd708 CL 98 mEq/L 05/06/2015 Comp Metabolic Zcb219 CO2 29.0 mEq/L 05/06/2015 Comp Metabolic Ell539 AN ION GAP 11 05/06/2015 Comp Metabolic Pyw945 GL UCOSE 321 mg/dL 05/06/2015 Comp Metabolic Pwt207 Cr eat 1.0 mg/dL 05/06/2015 Comp Metabolic Pum987 eG FR 78 ml/min/1.73m2 05/06 Comp Metabolic Lso554 BUN 20 mg/dL 05/06/2015 Comp Metabolic Kdy425 B/ C Ratio 20.4 Ratio 05/06/2015 Comp Metabolic Vag464 CA LCIUM 9.5 mg/dL 05/06/2015 Comp Metabolic Nex710 AL K PHOS 62 U/L 05/06/2015 Comp Metabolic Agc488 T(SGOT) 21 U/L 05/06/2015 Comp Metabolic Qzu711 AL T(SGPT) 37 U/L 05/06/2015 Comp Metabolic Nki067 BI LI T 0.4 mg/dL 05/06/2015 Comp Metabolic Tti182 AL BUMIN 3.8 g/dL 05/06/2015 Comp Metabolic Twb369 TP RO 6.1 g/dL 05/06/2015 Comp Metabolic Lld581 GL OB 2.3 g/dL 05/06/2015 Comp Metabolic Yuz609 A/ G Ratio 1.7 Ratio 05/06/2015 Comp Metabolic Vfi154 Os mo 283 mOsmo 05/06/2015 Tsh Ord6 hTSH II 1.65 uIU/mL 02/18/2015 B12 Lny525 B12 605.00 pg/ml 02/18/2015 %Hba1C Txp714 % HbA1c 71564-5 8.3 % 02/18/2015 %Hba1C Keu531 Gluc Ave 192 mg/dL 02/18/2015 Cbc With [...] Ord2 RDW 13.9 % 02/17/2015 Comp Metabolic Owy419 NA 137 mEq/L 02/17/2015 Comp Metabolic Hup406 K 4.4 mEq/L 02/17/2015 Comp Metabolic Twd651 CL 100 mEq/L 02/17/2015 Comp Metabolic Ijl458 CO2 31.0 mEq/L 02/17/2015 Comp Metabolic Gkz712 AN ION GAP 10 02/17/2015 Comp Metabolic Avf818 GL UCOSE 307 mg/dL 02/17/2015 Comp Metabolic Zpb505 Cr eat 1.0 mg/dL 02/17/2015 Comp Metabolic Gcr260 eG FR 74 ml/min/1.73m2 02/17 Comp Metabolic Qgf555 BUN 22 mg/dL 02/17/2015 Comp Metabolic Rph611 B/ C Ratio 21.4 Ratio 02/17/2015 Comp Metabolic Ohm842 CA LCIUM 9.5 mg/dL 02/17/2015 Comp Metabolic Fff274 AL K PHOS 78 U/L 02/17/2015 Comp Metabolic Yeh309 T(SGOT) 18 U/L 02/17/2015 Comp Metabolic Fyi025 AL T(SGPT) 32 U/L 02/17/2015 Comp Metabolic Wvs707 BI LI T 0.5 mg/dL 02/17/2015 Comp Metabolic Gxq381 AL BUMIN 4.3 g/dL 02/17/2015 Comp Metabolic Wuy040 TP RO 6.7 g/dL 02/17/2015 Comp Metabolic Kfo703 GL OB 2.4 g/dL 02/17/2015 Comp Metabolic Axw948 A/ G Ratio 1.8 Ratio 02/17/2015 Comp Metabolic Kgd235 Os mo 289 mOsmo 02/17/2015 Review of [...] distress 09/02/2018 None Full Exam - General 1995 Constitutional general appearance Overall: well nourished 09/02/2018 [...] accomodation 02/20/2018 None Full Exam - General 1995 Ears/Nose/Throat [...] visualized 12/20/2016 None Full Exam - General 1995 Ears/Nose/Throat lips/teeth/gingiva Overall: benign lips 12/20/2016 None [...] inspection of skin Location: face 03/07/2015 on religion, cheeks,actinic keratosis with irritation on left cheek - left religion - croptherapy on these two lesions - [...] Procedure Codes Date THER/PROPH/DIAG INJ SC/IM CPT-4: 87004 10/14/2018 THER/PROPH/DIAG INJ SC/IM CPT-4: 52803 10/03/2018 THER/PROPH/DIAG INJ SC/IM CPT-4: 94502 09/23/2018 THER/PROPH/DIAG INJ SC/IM CPT-4: 25227 09/02/2018 THER/PROPH/DIAG INJ SC/IM CPT-4: 46685 08/21/2018 THER/PROPH/DIAG INJ SC/IM CPT-4: 46119 08/08/2018 THER/PROPH/DIAG INJ SC/IM CPT-4: 65493 07/28/2018 THER/PROPH/DIAG INJ SC/IM CPT-4: 56483 07/16/2018 THER/PROPH/DIAG INJ SC/IM CPT-4: 97578 07/02/2018 PPPS, SUBSEQ VISIT CPT- 4: G0439 06/30/2018 THER/PROPH/DIAG INJ SC/IM CPT-4: 75840 06/24/2018 THER/PROPH/DIAG INJ SC/IM CPT-4: 65075 06/13/2018 ADMIN INFLUENZA VIRU S VAC CPT-4: G0008 06/06/2018 FLU VACC PRSV FREE I NC ANTIG CPT-4: 97973 06/06/2018 THER/PROPH/DIAG INJ SC/IM CPT-4: 73691 06/05/2018 THER/PROPH/DIAG INJ SC/IM CPT-4: 25478 05/30/2018 THER/PROPH/DIAG INJ SC/IM CPT-4: 29752 05/22/2018 THER/PROPH/DIAG INJ SC/IM CPT-4: 39909 05/12/2018 THER/PROPH/DIAG INJ SC/IM CPT-4: 75467 05/02/2018 THER/PROPH/DIAG INJ SC/IM CPT-4: 85795 04/24/2018 THER/PROPH/DIAG INJ SC/IM CPT-4: 04854 04/17/2018 KETOROLAC TROMETHAMI NE INJ CPT-4: J1885 03/07/2018 URINALYSIS NONAUTO W /O SCOPE CPT-4: 88668 03/07/2018 THER/PROPH/DIAG INJ SC/IM CPT-4: 98515 02/20/2018 TRIAMCINOLONE ACET I [place] NOS CPT-4: J3301 01/30/2018 THER/PROPH/DIAG INJ SC/IM CPT-4: 57099 01/17/2018 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-[address]: 651028542 CPT-4: G0436 04/25/2017 ADMIN INFLUENZA VIRU S VAC CPT-4: G0008 04/25/2017 ADMIN PNEUMOCOCCAL V ACCINE SNOMED CT: 22199856 CPT-4: G0009 04/25/2017 PNEUMOCOCCAL VACC [address]: 18097585 CPT-4: 33188 04/25/2017 FLU VACC PRSV FREE I NC ANTIG CPT-4: 63184 04/25/2017 ADMIN INFLUENZA VIRU S VAC CPT-4: G0008 05/22/2016 FLU VACC 4 TELLY 3 YRS PLUS IM Formatting Model/CDA Sections, Assigned to/Angela Clemons SNOMED CT: 43651726 CPT-4: 12991Qdljoeu 05/22/2016 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-[address]: 859798396 CPT-4: G0436 11/25/2015 URINALYSIS NONAUTO W /O SCOPE CPT-4: 22215 05/09/2015 TRIAMCINOLONE ACET I [place] NOS CPT-4: J3301 04/12/2015 DESTRUCT PREMALG LESION CPT-4: 49232 03/07/2015 DESTRUCT PREMALG LES 2-14 CPT-4: 90656 03/07/2015 REMOVE IMPACTED EAR WAX UNI CPT-4: 81814 12/31/2014 THER/PROPH/DIAG INJ SC/IM CPT-4: 47230 12/23/2014 TRIAMCINOLONE ACET I [place] NOS CPT-4: J3301 12/23/2014 Vital Signs Date Vital 10/17/2018 Blood Pressure 1: 124/54 Code: 8480-6 BMI: 21.9 Code: 91288-8 Heart Rate 1: 64 bpm Height: 5'11" SpO2: 93% Weight: 157 lbs 09/02/2018 Blood Pressure 1: 140/80 Code: 8480-6 BMI: 21.2 Code: 74424-0 Heart Rate 1: 68 bpm Height: 5'11" SpO2: 97% Weight: 152 lbs 06/30/2018 BMI: 21.8 Code: 63823-6 Height: 5'11" Weight: 156 lbs 06/06/2018 Blood Pressure 1: 128/76 Code: 8480-6 BMI: 22.0 Code: 90005-3 Heart Rate 1: 81 bpm Height: 5'11" SpO2: 92% Weight: 158 lbs 04/04/2018 Blood Pressure 1: 124/70 Code: 8480-6 BMI: 20.8 Code: 77361-8 Heart Rate 1: 65 bpm Height: 5'11" SpO2: 95% Weight: 149 lbs 03/07/2018 Blood Pressure 1: 148/70 Code: 8480-6 BMI: 21.2 Code: 17244-8 Heart Rate 1: 66 bpm Height: 5'11" SpO2: 94% Weight: 152 lbs 02/20/2018 Blood Pressure 1: 134/58 Code: 8480-6 BMI: 20.5 Code: 51288-7 Heart Rate 1: 61 bpm Height: 5'11" SpO2: 92% Weight: 147 lbs 01/30/2018 Blood Pressure 1: 158/68 Code: 8480-6 BMI: 21.5 Code: 45238-3 Heart Rate 1: 71 bpm Height: 5'11" SpO2: 92% Weight: 154 lbs 01/14/2018 Blood Pressure 1: 156/70 Code: 8480-6 Height: Weight: 01/13/2018 Blood Pressure 1: 148/62 Code: 8480-6 BMI: 20.9 Code: 55617-8 Heart Rate 1: 54 bpm Height: 5'11" SpO2: 97% Weight: 150 lbs 11/19/2017 Blood Pressure 1: 150/60 Code: 8480-6 BMI: 21.8 Code: 62855-4 Heart Rate 1: 63 bpm Height: 5'11" SpO2: 98% Weight: 156 lbs 10/02/2017 Blood Pressure 1: 168/60 Code: 8480-6 BMI: 21.9 Code: 97188-5 Heart Rate 1: 52 bpm Height: 5'11" SpO2: 97% Weight: 157 lbs 07/23/2017 Blood Pressure 1: 170/70 Code: 8480-6 BMI: 21.8 Code: 93221-1 Heart Rate 1: 65 bpm Height: 5'11" SpO2: 98% Weight: 156 lbs 04/25/2017 Blood Pressure 1: 138/60 Code: 8480-6 BMI: 21.6 Code: 39398-0 Heart Rate 1: 55 bpm Height: 5'11" SpO2: 93% Weight: 155 lbs 02/19/2017 Blood Pressure 1: 138/64 Code: 8480-6 BMI: 21.3 Code: 35232-5 Heart Rate 1: 52 bpm Height: 5'11" SpO2: 96% Weight: 152 lbs 8 oz 01/21/2017 Blood Pressure 1: 160/68 Code: 8480-6 BMI: 21.3 Code: 59894-2 Heart Rate 1: 62 bpm Height: 5'11" SpO2: 96% Weight: 153 lbs 12/20/2016 Blood Pressure 1: 124/66 Code: 8480-6 BMI: 21.5 Code: 95526-3 Height: 5'11" Weight: 154 lbs 08/23/2016 Blood Pressure 1: 142/52 Code: 8480-6 BMI: 21.2 Code: 92347-2 Heart Rate 1: 54 bpm Height: 5'11" SpO2: 96% Weight: 152 lbs 05/22/2016 Blood Pressure 1: 130/76 Code: 8480-6 BMI: 21.5 Code: 82152-4 Heart Rate 1: 78 bpm Height: 5'11" SpO2: 92% Weight: 154 lbs 02/24/2016 Blood Pressure 1: 128/80 Code: 8480-6 BMI: 21.2 Code: 36844-2 Heart Rate 1: 74 bpm Height: 5'11" SpO2: 96% Weight: 152 lbs 01/27/2016 Blood Pressure 1: 144/60 Code: 8480-6 BMI: 21.2 Code: 17492-0 Heart Rate 1: 74 bpm Height: 5'11" SpO2: 97% Weight: 152 lbs 11/25/2015 Blood Pressure 1: 110/52 Code: 8480-6 BMI: 21.9 Code: 81519-0 Heart Rate 1: 65 bpm Height: 5'11" SpO2: 92% Weight: 157 lbs 07/28/2015 Blood Pressure 1: 138/62 Code: 8480-6 BMI: 21.8 Code: 07680-9 Heart Rate 1: 63 bpm Height: 5'11" SpO2: 91% Weight: 156 lbs 05/26/2015 Blood Pressure 1: 120/58 Code: 8480-6 BMI: 21.5 Code: 55275-6 Heart Rate 1: 99 bpm Height: 5'11" SpO2: 96% Weight: 154 lbs 05/06/2015 Blood Pressure 1: 120/58 Code: 8480-6 BMI: 21.2 Code: 59370-2 Heart Rate 1: 66 bpm Height: 5'11" SpO2: 96% Weight: 152 lbs 04/25/2015 Blood Pressure 1: 136/62 Code: 8480-6 BMI: 21.2 Code: 35351-5 Heart Rate 1: 63 bpm Height: 5'11" SpO2: 97% Weight: 152 lbs 04/12/2015 Blood Pressure 1: 160/58 Code: 8480-6 BMI: 21.6 Code: 29536-1 Heart Rate 1: 62 bpm Height: 5'11" Weight: 155 lbs 03/24/2015 Blood Pressure 1: 138/68 Code: 8480-6 BMI: 22.0 Code: 04490-9 Heart Rate 1: 65 bpm Height: 5'11" SpO2: 96% Weight: 158 lbs 03/07/2015 Blood Pressure 1: 116/52 Code: 8480-6 BMI: 22.2 Code: 97675-9 Heart Rate 1: 64 bpm Height: 5'11" SpO2: 97% Weight: 159 lbs 02/17/2015 Blood Pressure 1: 148/58 Code: 8480-6 BMI: 21.3 Code: 79619-4 Heart Rate 1: 63 bpm Height: 5'11" SpO2: 97% Weight: 153 lbs 12/31/2014 Blood Pressure 1: 100/60 Code: 8480-6 BMI: 21.8 Code: 46525-6 Heart Rate 1: 68 bpm Height: 5'11" Weight: 156 lbs 12/23/2014 Blood Pressure 1: 148/64 Code: 8480-6 BMI: 21.9 Code: 84735-4 Heart Rate 1: 64 bpm Height: 5'11" [...] Encounters Encounter Performer Loca tion Codes Date ([id number]) [id number] EST. P ATIENT, LEVEL III Diagnosis: Orthostatic hypotension[ICD10: I95.1] Diagnosis: Low back pain[ICD10: M54.5] Diagnosis: Unsteadiness on feet[ICD10: R26.81] Karmen Ash MD, [facility] CPT-4: 43083 10/17/2018 ([id number]) [id number] EST. 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 CPT-4: 28705 09/02/2018 ([id number]) 06009 EST. P ATIENT, LEVEL IV Diagnosis: Cellulitis of face[ICD10: L03.211] Diagnosis: Type 2 diabetes mellitus without complications[ICD10: E11.9] Diagnosis: Essential (primary) hypertension[ICD10: I10] Diagnosis: Encounter for immunization[ICD10: Z23] Karmen Ash MD, [facility] CPT-4: 24188 06/06/2018 ([id number]) [id number] EST. P ATIENT, LEVEL IV Diagnosis: Essential (primary) hypertension[ICD10: I10] Diagnosis: Chronic obstructive pulmonary disease, unspecified[ICD10: J44.9] Diagnosis: Testicular dysfunction, unspecified[ICD10: E29.9] Diagnosis: Type 2 diabetes mellitus with hyperglycemia[ICD10: E11.65] [facility] CPT-4: 71407 04/04/2018 ([id number]) [id number] EST. P ATIENT, LEVEL III Diagnosis: Low back pain[ICD10: M54.5] Diagnosis: Dysuria[ICD10: R30.0] [facility] CPT-4: 20532 03/07/2018 ([id number] EST. 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 CPT-4: 96829 02/20/2018 ([id number]) 66380 EST. P ATIENT, LEVEL III Diagnosis: Chronic obstructive pulmonary disease with (acute) exacerbation[ICD10: J44.1] Karmen Ash MD, [facility] CPT-4: 09194 01/30/2018 04604 EST. PATIENT, LEVEL II Diagnosis: Insect bite (nonvenomous), left lower leg, initial encounter[ICD10: S80.862A] Karmen Ash MD, [facility] CPT-4: 03326 01/14/2018 ([id number]) 94873 EST. P ATIENT, LEVEL IV Diagnosis: Type 2 diabetes mellitus with hyperglycemia[ICD10: E11.65] Diagnosis: Chronic obstructive pulmonary disease, unspecified[ICD10: J44.9] Diagnosis: Other fatigue[ICD10: R53.83] Karmen Ash MD, [facility] CPT- 4: 66401 01/13/2018 ([id number]) 92703 EST. P ATIENT, LEVEL IV Diagnosis: Type 2 diabetes mellitus with hyperglycemia[ICD10: E11.65] Diagnosis: Vitamin D deficiency, unspecified[ICD10: E55.9] Diagnosis: Essential (primary) hypertension[ICD10: I10] Diagnosis: Abdominal distension (gaseous)[ICD10: R14.0] Diagnosis: Drug induced constipation[ICD10: K59.03] Karmen Ash MD, [facility] CPT-4: 46034 11/19/2017 03718 EST. PATIENT, LEVEL IV Diagnosis: Low back pain[ICD10: M54.5] Diagnosis: Chronic obstructive pulmonary disease, unspecified[ICD10: J44.9] Brunilda Ash MD, [facility] CPT-4: 77425 10/02/2017 ([id number]) 22636 EST. P ATIENT, LEVEL IV Diagnosis: Essential (primary) hypertension[ICD10: I10] Diagnosis: Type 2 diabetes mellitus with hyperglycemia[ICD10: E11.65] Diagnosis: Vitamin D deficiency, unspecified[ICD10: E55.9] Diagnosis: Mixed hyperlipidemia[ICD10: E78.2] Karmen Ash MD, [facility] CPT-4: 10320 07/23/2017 ([id number]) 93405 EST. P ATIENT, LEVEL IV Diagnosis: Essential (primary) hypertension[ICD10: I10] Diagnosis: Type 2 diabetes mellitus with hyperglycemia[ICD10: E11.65] Diagnosis: Chronic obstructive pulmonary disease, unspecified[ICD10: J44.9] Diagnosis: Nicotine dependence, unspecified, uncomplicated[ICD10: F17.200] Diagnosis: Encounter for immunization[ICD10: Z23] Karmen Ash MD, [facility] CPT-4: 47419 04/25/2017 ([id number]) 43075 EST. P ATIENT, LEVEL IV Diagnosis: Type 2 diabetes mellitus with hyperglycemia[ICD10: E11.65] Diagnosis: Essential (primary) hypertension[ICD10: I10] Diagnosis: Anemia, unspecified[ICD10: D64.9] Karmen Ash MD, [facility] CPT- 4: 24160 02/19/2017 ([id number]) 16237 EST. P ATIENT, LEVEL IV Diagnosis: Slow transit constipation[ICD10: K59.01] Diagnosis: Gastro-esophageal reflux disease without esophagitis[ICD10: K21.9] Diagnosis: Essential (primary) hypertension[ICD10: I10] Karmen Ash MD, [facility] CPT-4: 93627 01/21/2017 ([id number]) 81791 EST. P ATIENT, LEVEL IV Diagnosis: Type 2 diabetes mellitus with hyperglycemia[ICD10: E11.65] Diagnosis: Vitamin D deficiency, unspecified[ICD10: E55.9] Diagnosis: Essential (primary) hypertension[ICD10: I10] Diagnosis: Chronic obstructive pulmonary disease, unspecified[ICD10: J44.9] Karmen Ash MD, [facility] CPT-4: 96890 12/20/2016 ([id number]) 00034 EST. P ATIENT, LEVEL IV Diagnosis: Type 2 diabetes mellitus with hyperglycemia[ICD10: E11.65] Diagnosis: Essential (primary) hypertension[ICD10: I10] Diagnosis: Mixed hyperlipidemia[ICD10: E78.2] Diagnosis: Vitamin D deficiency, unspecified[ICD10: E55.9] Karmen Ash MD, [facility] CPT-4: 48208 08/23/2016 ([id number]) 16105 EST. P ATIENT, LEVEL IV Diagnosis: Type 2 diabetes mellitus with hyperglycemia[ICD10: E11.65] Diagnosis: Essential (primary) hypertension[ICD10: I10] Diagnosis: Chronic obstructive pulmonary disease, unspecified[ICD10: J44.9] Karmen Ash MD, [facility] CPT-4: 75510 05/22/2016 ([id number]) 19377 EST. P ATIENT, LEVEL III Diagnosis: Dysuria[ICD10: R30.0] Diagnosis: Essential (primary) hypertension[ICD10: I10] Karmen Ash MD, [facility] CPT-4: 66753 02/24/2016 ([id number]) 63504 EST. P ATIENT, LEVEL IV Diagnosis: Gastro-esophageal reflux disease without esophagitis[ICD10: K21.9] Diagnosis: Slow transit constipation[ICD10: K59.01] Diagnosis: Type 2 diabetes mellitus with hyperglycemia[ICD10: E11.65] Karmen Ash MD, [facility] CPT-4: 09897 01/27/2016 ([id number]) 81236 EST. P ATIENT, LEVEL IV Diagnosis: Essential (primary) hypertension[ICD10: I10] Diagnosis: Type 2 diabetes mellitus with hyperglycemia[ICD10: E11.65] Diagnosis: Vitamin D deficiency, unspecified[ICD10: E55.9] Diagnosis: Chronic obstructive pulmonary disease, unspecified[ICD10: J44.9] Diagnosis: Mixed hyperlipidemia[ICD10: E78.2] Diagnosis: Tobacco use[ICD10: Z72.0] Karmen Ash MD, [facility] CPT- 4: 05735 11/25/2015 ([id number]) 71804 EST. P ATIENT, LEVEL IV Diagnosis: Type 2 diabetes mellitus with hyperglycemia[ICD10: E11.65] Diagnosis: Essential (primary) hypertension[ICD10: I10] Diagnosis: Vitamin D deficiency, unspecified[ICD10: E55.9] Karmen Ash MD, [facility] CPT-4: 86841 07/28/2015 ([id number]) 93455 EST. P ATIENT, LEVEL III Diagnosis: Type 2 diabetes mellitus with hyperglycemia[ICD10: E11.65] Diagnosis: Essential (primary) hypertension[ICD10: I10] Violeta Ash MD, [facility] CPT-4: 45589 05/26/2015 ([id number]) 00997 EST. P ATIENT, LEVEL III Diagnosis: DIABETES TYPE II[ICD9: 250.00] Diagnosis: COPD (chronic obstructive pulmonary disease)[ICD9: 496] Diagnosis: ESSENTIAL HYPERTENSION[ICD9: 401.9] Diagnosis: Cough[ICD9: 786.2] Violeta Ash MD, [facility] CPT-4: 89595 05/06/2015 ([id number]) 26966 EST. P ATIENT, LEVEL III Diagnosis: COPD (chronic obstructive pulmonary disease)[ICD9: 496] Diagnosis: DIABETES TYPE II[ICD9: 250.00] Diagnosis: Muscle ache[ICD9: 729.1] Karmen Ash MD, [facility] CPT- 4: 72117 04/25/2015 ([id number]) 84674 EST. P ATIENT, LEVEL III Diagnosis: ACTINIC KERATOSIS[ICD9: 702.0] Diagnosis: COPD (chronic obstructive pulmonary disease)[ICD9: 496] Diagnosis: DIABETES TYPE II[ICD9: 250.00] Diagnosis: ACUTE URI[ICD9: 465.9] Violeta Ash MD, [facility] CPT-4: 90109 04/12/2015 ([id number]) 81743 EST. P ATIENT, LEVEL III Diagnosis: DIABETES TYPE II[ICD9: 250.00] Violeta Ash MD, [facility] CPT-4: 17691 03/24/2015 ([id number]) 30585 EST. P ATIENT, LEVEL IV Diagnosis: DIABETES TYPE II[ICD9: 250.00] Diagnosis: Hypoglycemia[ICD9: 251.2] Diagnosis: Skin texture changes[ICD9: 782.8] Violeta Ash MD, [facility] CPT-4: 15651 03/07/2015 ([id number]) 74006 EST. P ATIENT, LEVEL IV Diagnosis: COPD (chronic obstructive pulmonary disease)[ICD9: 496] Diagnosis: Fatigue[ICD9: 780.79] Diagnosis: Insulin dependent diabetes mellitus[ICD9: 250.00] Diagnosis: Unsteady gait[ICD9: 781.2] Maame Ash MD, [facility] CPT-4: 79901 02/17/2015 [id number] 67054 EST. P ATIENT, LEVEL IV Diagnosis: BPPV (benign paroxysmal positional vertigo)[ICD9: 386.11] Diagnosis: Impacted cerumen[ICD9: 380.4] Diagnosis: ESSENTIAL HYPERTENSION[ICD9: 401.9] Diagnosis: Insulin dependent diabetes mellitus[ICD9: 250.00] Karmen Ash MD, [facility] CPT-4: 11154 12/23/2014 ([id number]) OFFICE [facility] 4 Diagnosis: Insulin dependent diabetes mellitus[ICD9: 250.00] Diagnosis: BPPV (benign paroxysmal positional vertigo)[ICD9: 386.11] Diagnosis: COPD (chronic obstructive pulmonary disease)[ICD9: 496] Diagnosis: Tobacco abuse[ICD9: 305.1] Diagnosis: Osteoarthritis[ICD9: 715.90] Karmen Ash MD, [facility] CPT- 4: 39153 12/09/2014 Plan of Care Planned Activity Notes C odes Status Date Visit Plan: Orthostatic hypotension -recommend patient pump legs before standing -change positions slowly- monitor blood pressures Chronic Pain Syndrome - pt has chronic pain - has been maintained on current medica tions, has not sought out other medications, only uses PRN pain medications as directed, and understands the consequences of over-medication. Gait instability- recommend patient use a walker 10/17/2018 Appointment: Karmen Espinal WPtel: [address] [place], [place] [phone] (30 min) [facility] 10/17/2018 Patient Education: Patient Medication Summary Completed [...] medications. 09/02/2018 Appointment: [phone] [phone] (15 min) Moderate 09/02/2018 Patient [...] care surrogate. 06/30/2018 Appointment: [facility]inal [facility] [phone] [phone] [facility] - Annual Wellness Visit 06/30/2018 Patient Education: [...] pain. 06/06/2018 Appointment: Karmen Espinal WPtel: [phone] [phone] (15 min) Moderate 06/06/2018 Patient Education: Patient [...] months 04/04/2018 Appointment: [phone] [phone] (15 min) Moderate 04/04/2018 Patient Education: Patient Medication Summary Completed 04/04/2018 Care Plan: Cbc With Differential Pending 04/04/2018 Care Plan: Testosterone repeat in 2 months Pending 04/04/2018 Appointment: Karmen Espinal WPtel: [phone] [phone] [place] (15 min) Moderate 03/25/2018 Visit Plan: Low back pain -history of kidney stone-UA negative today -increase fluids and call if pain does not resolve or if any worse. 03/07/2018 Appointment: [facility]inal [facility]el[facility] [phone] [phone] [place] (15 min) Moderate 03/07/2018 Patient [...] month 02/20/2018 Appointment: Karmen Espinal WPtel: [phone] [phone] (15 min) Moderate 02/20/2018 Patient Education: Patient Medication Summary Completed 02/20/2018 Visit Plan: COPD EXACERBATION - [employer] A[employer]ER D is a chronic problem for this [...] changes. 01/30/2018 Appointment: Karmen Espinal WPtel: [phone] (15 min) Moderate 01/30/2018 Patient Education: Patient Medication Summary Completed 01/30/2018 Appointment: Karmen Espinal WPtel: [phone] [phone] (15 min) Moderate 01/28/2018 Appointment: Injection 01/17/2018 Patient Education: Patient Medication Summary Completed 01/17/2018 Visit Plan: Cellulitis - start oral antibiotics as directed, return to clinic as previously directed, call for acute change in symptoms, worsening redness, warmth, discharge. 01/14/2018 Appointment: Karmen Espinal WPtel: [phone] [phone] (10 min) Simple 01/14/2018 Patient Education: Patient [...] controlled. 01/13/2018 Appointment: Karmen Espinal WPtel: [facility]4 [phone] (15 min) Moderate 01/13/2018 Patient Education: Patient Medication Summary Completed 01/13/2018 [phone] Patient's informed. Referral info f porfirio. [...] change in blood pressure readings at home. Vvhnhdgo-cthess-pzcze to see Dr Villatoro Constipation-start linzess daily 11/19/2017 Appointment: Karmen Espinal WPtel: [facility]3 [phone] (30 min) Complex 11/19/2017 Patient Education: Patient Medication Summary Completed 11/19/2017 Care Plan: Referral Order bloating, nausea SNOMED-CT : [id number] Pending 11/19/2017 Visit Plan: Low back pain- [...] changes. 10/02/2017 Appointment: Brunilda Maravilla WPtel: [address] [place], [place] [phone] (15 min) Moderate 10/02/2017 Patient Education: Patient [...] to become less controlled. 07/23/2017 Appointment: [facility] Espianl [facility]Ptel[facility] [phone] [phone] [place] (30 min) Complex 07/23/2017 Patient [...] history 04/25/2017 Appointment: [facility]inal [facility]Ptel[facility] [phone] [phone] [place] (30 min) Complex 04/25/2017 Patient Education: [...] readings are starting to become less controlled. Mtryak-rvcsrur-tcomi labs 02/19/2017 Appointment: K[facility] Espinal WPtel[facility] [phone] [phone] (30 min) Complex 02/19/2017 Patient [...] 1 month 01/21/2017 Appointment: [facility] Espinal [facility]Ptel[facility] [phone] [phone] (30 min) Complex 01/21/2017 Patient Education: Patient Medication Summary Completed 01/21/2017 Patient Education: Smoking and Tobacco Addiction Completed 01/21/2017 Patient Education: Hypertension Completed 01/21/2017 Care Plan: Referral Order SNOMED-CT : [id number] Pending 01/21/2017 Visit Plan: Diabetes Mellitus - [...] stable, monitor for acute changes. 12/20/2016 Appointment: Karemn Espinal WPtel: [phone] (30 min) Complex 12/20/2016 Patient Education: Patient Medication Summary Completed 12/20/2016 Patient Education: Smoking and Tobacco Addiction Completed 12/20/2016 Patient Education: Hypertension Completed 12/20/2016 Appointment: [facility] Espinal [facility]Ptel[facility] [phone] [phone] (30 min) Complex 09/06/2016 Visit [...] d level 08/23/2016 Appointment: Karmen Espinal WPtel: [facility]5 [phone] (30 min) Complex 08/23/2016 Patient Education: Patient [...] changes. 05/22/2016 Appointment: Karmen Espinal WPtel: [phone] (30 min) Complex 05/22/2016 Patient Education: Patient Medication Summary Completed 05/22/2016 Patient Education: Smoking and Tobacco Addiction Completed 05/22/2016 Care Plan: Cbc With Differential Ordered 05/22/2016 Care Plan: %Hba1C LOIN C : 67665-9 Ordered 05/22/2016 Care Plan: Tsh Ordered 05/22/2016 [...] update 02/24/2016 Appointment: Karm[facility] Espinal WPtel: [phone] [phone] (30 min) Complex 02/24/2016 Patient Education: Patient [...] regimen. 01/27/2016 Appointment: [facility] Espinal WPtel: [phone] [phone] (30 min) Complex 01/27/2016 Patient Education: [...] use medication to assist cessation. COPD-sample of [facility] Hyperlipidemia - pt has been counseled about [...] Completed 05/06/2015 Visit Plan: COPD EXACERBATION - [employer]AT[employer] AFFAIRS [employer]ER D is a chronic problem for this [...] POTENTIAL SIDE EFFECTS AND WORSENING OF SYMPTOMS. Ktadwaow-bgidpzus-FSFE SIMVASTATIN X 2 WEEKS AND CALL WITH [...] Care Plan: COMPLETE CBC AUTOMATED LOINC : 29343-6 Ordered 03/24/2015 Visit Plan: Diabetes Mellitus - [...] removal. 03/07/2015 Appointment: Violeta Ash WPtel: [facility] (15 min) Moderate 03/07/2015 Patient Education: Patient [...] Care Plan: COMPLETE CBC AUTOMATED LOINC : 44441-7 Ordered 12/23/2014 Visit Plan: BPPV - Benign [...] next appt 12/09/2014 Appointment: Karmen Espinal WPtel: [address] [place], [place] [phone] [place] ([place]) New Patient 12/09/2014 Patient Education: Patient Medication Summary Completed 12/09/2014 Patient Education: .Amazing charts Parox ysmal positional vertigo Completed 12/09/2014 Patient Education: Smoking and Tobacco Addiction Completed 12/09/2014 Referral: Hugo Villatoro HPtel:[phone] Referral Appointment Requested Referral: Luis Donohue Referral [...] readings are starting to become less controlled. Yizpwt-txeydrg-ozehd labs . COPD -recent pneum onia-symptoms have [...] - referral to Dr. Donohue for removal. flu/prevnar . Hypertension - well controlled - [...] low dose CT chest-60 pack/year history . Cerumen Impaction - The impacted cerumen [...] change in blood pressure readings at home. Drldugfw-sfxwda-iwutj to see Dr Villatoro Constipation-start linzess daily [...] POTENTIAL SIDE EFFECTS AND WORSENING OF SYMPTOMS. Rkmezcpo-vocyxiyb-KOOL SIMVASTATIN X 2 WEEKS AND CALL WITH [...] use medication to assist cessation. COPD-sample of [facility] Hyperlipidemia - pt has been counseled about [...]
--- OUTSIDE RECORDS SUMMARY | 2020-03-29 08:58 | XMS REPORT | CCD ---
Author Author Dick Espinal Organization Violeta Ash MD, [facility] Address [address] [place] [address] Phone Care Team Providers Care Reception Manager Name Role Phone PP Unavailable CCM Unavailable Summary Purpose Interface Exchange Insurance Providers Payer name Policy type / Coverage type Covered alliance party ID Effective Begin Date Effective End Date WPS Medicare Part B Medicare Part B [id number] Unknown Unknown [employer] Medicar e Part B [id number] Unknown Unkn own Family history Father Diagnosis Age At Onset Cancer Unknown Mother Diagnosis Age At Onset Cancer Unknown Social History Social History Element Codes Description Effective Dates Marital status Unknown M arried 12/09/2014 Employment Unknown Retir ed 12/09/[address]: 12693487 Currently smokes tobacco 12/09/2014 Number of years using tobacco Unknown > 50 12/09/2014 Number of cigarettes/day Unknown 30 (Pack and a half) 12/09/[address]: 034940919 Never drinks alcohol 12/09/2014 Allergies, Adverse Reactions, [...] Fill Instructions meclizine 25 mg tablet RxNorm: 410362 1 Tablet(s) PO Q6 PRN TAKE ONE TABLET BY MOUTH EVERY 6 HOURS NEEDED 10/17/2018 01/14/2019 Active hydrocodone 5 mg-linh taminophen 325 mg tablet RxNorm: 553687 1 Tablet(s) PO Q6-8H as needed 10/17/2018 11/10/2018 Active metformin 500 mg tablet RxNorm: 155519 Tablet(s) TAKE 1 TABLET BY MOUTH DAILY 10/15/2018 10/09/2019 Ac tive lisinopril 10 mg tablet RxNorm: 178960 TAKE 1 TABLET BY MOUTH TWO TIMES DAILY 10/15/2018 10/09/2019 Ac tive - First Attempt Ref: [id number] testosterone cypiona te 200 mg/mL intramuscular oil RxNorm: 7732956 Milliliter(s) IM 10/14/2018 10/14/2018 In active Xanax 0.5 mg tablet RxNorm: 784270 1 Tablet(s) PO TID 10/03/2018 11/30/2018 Active testosterone cypiona te 200 mg/mL intramuscular oil RxNorm: 3268892 1/2 Milliliter(s) IM weekly 10/03/2018 01/30/2019 Active testosterone cypiona te 200 mg/mL intramuscular oil RxNorm: 9570042 Milliliter(s) IM 10/03/2018 10/03/2018 In active testosterone cypiona te 200 mg/mL intramuscular oil RxNorm: 7920029 Milliliter(s) IM 09/23/2018 09/23/2018 In active hydrocodone 5 mg-linh taminophen 325 mg tablet RxNorm: 549876 1 Tablet(s) PO Q6-8H as needed 09/22/2018 10/16/2018 Inactive testosterone cypiona te 200 mg/mL intramuscular oil RxNorm: 2741339 1/2 Milliliter(s) IM 09/02/2018 09/02/2018 Inactive testosterone enantha te 200 mg/mL intramuscular oil RxNorm: 031479 Milliliter(s) IM 08/21/2018 08/21/2018 In active hydrocodone 5 mg-linh taminophen 325 mg tablet RxNorm: 023814 1 Tablet(s) PO Q6-8H as needed 08/21/2018 09/14/2018 Inactive testosterone cypiona te 200 mg/mL intramuscular oil RxNorm: 1408672 Milliliter(s) IM 08/08/2018 08/08/2018 In active testosterone cypiona te 200 mg/mL intramuscular oil RxNorm: 6804926 1/2 Milliliter(s) IM 07/28/2018 07/28/2018 Inactive hydrocodone 5 mg-linh taminophen 325 mg tablet RxNorm: 586120 1 Tablet(s) PO Q6-8H as needed 07/21/2018 08/14/2018 Inactive testosterone cypiona te 200 mg/mL intramuscular oil RxNorm: 609948 Milliliter(s) IM 07/16/2018 07/16/2018 In active testosterone cypiona te 200 mg/mL intramuscular oil RxNorm: 801225 Milliliter(s) IM 07/02/2018 07/02/2018 In active Xanax 0.5 mg tablet RxNorm: 058072 1 Tablet(s) PO TID 06/27/2018 08/24/2018 Inactive testosterone cypiona te 200 mg/mL intramuscular oil RxNorm: 312412 Milliliter(s) IM 06/24/2018 06/24/2018 In active hydrocodone 5 mg-linh taminophen 325 mg tablet RxNorm: 492351 1 Tablet(s) PO Q6-8H as needed 06/23/2018 07/17/2018 Inactive testosterone cypiona te 200 mg/mL intramuscular oil RxNorm: 633103 Milliliter(s) IM 06/13/2018 06/13/2018 In active testosterone cypiona te 200 mg/mL intramuscular oil RxNorm: 565068 Milliliter(s) IM 06/05/2018 06/05/2018 In active testosterone cypiona te 200 mg/mL intramuscular oil RxNorm: 4064249 1/2 Milliliter(s) IM weekly 05/30/2018 09/26/2018 Inactive testosterone cypiona te 200 mg/mL intramuscular oil RxNorm: 424274 Milliliter(s) IM 05/30/2018 05/30/2018 In active testosterone cypiona te 200 mg/mL intramuscular oil RxNorm: 787264 Milliliter(s) IM 05/22/2018 05/22/2018 In active hydrocodone 5 mg-linh taminophen 325 mg tablet RxNorm: 468452 1 Tablet(s) PO Q6-8H as needed 05/20/2018 06/13/2018 Inactive testosterone cypiona te 200 mg/mL intramuscular oil RxNorm: 145334 1/2 Milliliter(s) IM 05/12/2018 05/12/2018 Inactive testosterone cypiona te 200 mg/mL intramuscular oil RxNorm: 875348 Milliliter(s) IM 05/02/2018 05/02/2018 In active testosterone cypiona te 200 mg/mL intramuscular oil RxNorm: 744479 1/2 Milliliter(s) IM weekly 04/24/2018 05/29/2018 Inactive testosterone cypiona te 200 mg/mL intramuscular oil RxNorm: 056944 0.5 Milliliter(s) IM 04/24/2018 04/24/2018 Inactive hydrocodone 5 mg-linh taminophen 325 mg tablet RxNorm: 195831 1 Tablet(s) PO Q6-8H as needed 04/22/2018 05/16/2018 Inactive testosterone cypiona te 200 mg/mL intramuscular oil RxNorm: 295413 1/2 Milliliter(s) IM 04/17/2018 04/17/2018 Inactive testosterone cypiona te 200 mg/mL intramuscular oil RxNorm: 155678 1/2 Milliliter(s) IM weekly 04/16/2018 04/23/2018 Inactive Jardiance 10 mg tablet RxNorm: 4207131 1 Tablet(s) PO daily 04/04/2018 12/29/2018 Active Protonix 40 mg table t,delayed release RxNorm: 197393 1 Tablet(s) PO daily TAKE 1 TABLET BY MOUTH DAILY 04/04/2018 03/29/2019 Active - Ref: [id number] testosterone cypiona te 200 mg/mL intramuscular oil RxNorm: 393164 1 Milliliter(s) IM monthly 04/04/2018 04/15/2018 Inactive hydrocodone 5 mg-linh taminophen 325 mg tablet RxNorm: 360685 1 Tablet(s) PO Q6-8H as needed 03/19/2018 04/12/2018 Inactive Flomax 0.4 mg capsule RxNorm: 853121 1 Capsule(s) PO daily 03/10/2018 03/04/2019 Active Urecholine 25 mg tablet RxNorm: 469402 1 Tablet(s) PO BID 03/10/2018 07/07/2018 Inactive ketorolac 60 mg/2 mL intramuscular solution RxNorm: 3473750 Milliliter(s) IM 03/07/2018 03/07/2018 In active metformin 500 mg tablet RxNorm: 313181 Tablet(s) TAKE 1 TABLET BY MOUTH DAILY 02/20/2018 02/13/2019 Ac tive 1 q am and 1/2 tab q pm hydrocodone 5 mg-linh taminophen 325 mg tablet RxNorm: 067012 1 Tablet(s) PO Q6-8H as needed 02/20/2018 03/16/2018 Inactive Kenalog 40 mg/mL bartolome pension for injection RxNorm: 2367290 1.5 Milliliter(s) In j 01/30/2018 01/30/2018 In active hydrocodone 5 mg-linh taminophen 325 mg tablet RxNorm: 167750 1 Tablet(s) PO Q6-8H as needed 01/23/2018 02/16/2018 Inactive Urecholine 25 mg tablet RxNorm: 741980 1 Tablet(s) PO BID 01/22/2018 03/09/2018 Inactive Flomax 0.4 mg capsule RxNorm: 337986 1 Capsule(s) PO daily 01/22/2018 03/09/2018 Inactive Flomax 0.4 mg capsule RxNorm: 337755 1 Capsule(s) PO daily 01/22/2018 01/21/2018 Inactive Urecholine 25 mg tablet RxNorm: 355759 1 Tablet(s) PO BID 01/22/2018 01/21/2018 Inactive testosterone cypiona te 200 mg/mL intramuscular oil RxNorm: 753134 Milliliter(s) IM 01/17/2018 01/17/2018 In active testosterone cypiona te 200 mg/mL intramuscular oil RxNorm: 862530 1 Milliliter(s) IM monthly 01/17/2018 04/03/2018 Inactive doxycycline hyclate 100 mg tablet RxNorm: 142992 1 Tablet(s) PO BID 01/14/2018 01/23/2018 Inactive lisinopril 10 mg tablet RxNorm: 230336 TAKE 1 TABLET BY MOUTH TWO TIMES DAILY 01/14/2018 10/14/2018 In active - First Attempt Ref: [id number] Xanax 0.5 mg tablet RxNorm: 392681 1 Tablet(s) PO TID 01/08/2018 04/06/2018 Inactive nystatin 100,000 uni t/mL oral suspension RxNorm: 783194 4 Milliliter(s) PO QI D Swish and swallow 01/08/2018 01/07/2018 Inactive nystatin 100,000 uni t/mL oral suspension RxNorm: 653549 4 Milliliter(s) PO QI D Swish and swallow 01/08/2018 01/12/2018 Inactive simvastatin 40 mg ta blet RxNorm: 674549 TAKE 1 TABLET BY MOUT H DAILY AT BEDTIME 12/30/2017 12/24/2018 Ac tive - First Attempt Ref: [id number] metformin 500 mg tablet RxNorm: 249293 TAKE 1 TABLET BY MOUTH DAILY 12/30/2017 02/19/2018 Inactive - First Attempt Ref: [id number] hydrocodone 5 mg-linh taminophen 325 mg tablet RxNorm: 493828 1 Tablet(s) PO Q6-8H as needed 12/25/2017 01/18/2018 Inactive Protonix 40 mg table t,delayed release RxNorm: 701439 Tablet(s) TAKE 1 TABL ET BY MOUTH DAILY 11/20/2017 04/03/2018 Inactive - Ref: [id number] Linzess 72 mcg capsule RxNorm: 2225261 1 Capsule(s) PO daily 11/19/2017 No Stop Date Active hydrocodone 5 mg-linh taminophen 325 mg tablet RxNorm: 751559 1 Tablet(s) PO Q6-8H as needed 11/19/2017 12/13/2017 Inactive hydrocodone 5 mg-linh taminophen 325 mg tablet RxNorm: 134336 1 Tablet(s) PO Q6-8H as needed 10/28/2017 11/18/2017 Inactive Xanax 0.5 mg tablet RxNorm: 604057 1 Tablet(s) PO TID 10/25/2017 12/22/2017 Inactive Xanax 0.5 mg tablet RxNorm: 228751 TAKE ONE TABLET BY MOUTH THREE TIMES A D AY 10/24/2017 12/22/2017 In active hydrocodone 5 mg-linh taminophen 325 mg tablet RxNorm: 141335 1 Tablet(s) PO Q6-8H as needed 09/30/2017 10/24/2017 Inactive Protonix 40 mg table t,delayed release RxNorm: 642928 TAKE 1 TABLET BY MOUT H DAILY 09/16/2017 11/19/2017 In active - Ref: [id number] Yovana WheeleroStar 300 unit/mL (1.5 mL) subcutaneous insulin pen RxNorm: 0794121 35 Unit(s) SQ QHS 08/30/2017 No Stop Date Active dosage increase hydrocodone 5 mg-linh taminophen 325 mg tablet RxNorm: 351398 1 Tablet(s) PO Q6-8H as needed 08/28/2017 09/29/2017 Inactive hydrocodone 5 mg-linh taminophen 325 mg tablet RxNorm: 710778 1 Tablet(s) PO Q6-8H as needed 07/23/2017 08/24/2017 Inactive lisinopril 10 mg tablet RxNorm: 394519 1 Tablet(s) PO BID Take 1 tablet by mout h daily 07/23/2017 01/13/2018 Inactive hydrocodone 5 mg-linh taminophen 325 mg tablet RxNorm: 932890 1 Tablet(s) PO Q6-8H as needed 06/27/2017 07/22/2017 Inactive Xanax 0.5 mg tablet RxNorm: 164764 1 Tablet(s) PO TID 06/18/2017 10/25/2017 Inactive hydrocodone 5 mg-linh taminophen 325 mg tablet RxNorm: 505397 1 Tablet(s) PO Q6-8H as needed 05/27/2017 06/26/2017 Inactive Levaquin 500 mg tablet RxNorm: 903856 1 Tablet(s) PO daily 05/24/2017 05/23/2017 Inactive Levaquin 500 mg tablet RxNorm: 182656 1 Tablet(s) PO daily 05/24/2017 05/30/2017 Inactive Protonix 40 mg table t,delayed release RxNorm: 390898 Take 1 tablet by mout h daily 04/29/2017 09/15/2017 In active - Ref: [id number] hydrocodone 5 mg-linh taminophen 325 mg tablet RxNorm: 252643 1 Tablet(s) PO Q6-8H as needed 04/25/2017 05/26/2017 Inactive metformin 500 mg tablet RxNorm: 509404 Take 1 tablet by mouth daily 04/08/2017 12/29/2017 Inactive - First Attempt Ref: [id number] hydrocodone 5 mg-linh taminophen 325 mg tablet RxNorm: 161664 1 Tablet(s) PO Q6-8H as needed 03/27/2017 04/24/2017 Inactive hydrocodone 5 mg-linh taminophen 325 mg tablet RxNorm: 583683 1 Tablet(s) PO Q6-8H as needed 02/25/2017 03/26/2017 Inactive Protonix 40 mg table t,delayed release RxNorm: 297534 Tablet(s) Take 1 tabl et by mouth BID 02/25/2017 04/28/2017 Inactive Protonix 40 mg table t,delayed release RxNorm: 284102 Tablet(s) Take 1 tabl et by mouth BID 02/19/2017 02/18/2017 Inactive Protonix 40 mg table t,delayed release RxNorm: 090178 Tablet(s) Take 1 tabl et by mouth BID 02/19/2017 02/24/2017 Inactive lisinopril 10 mg tablet RxNorm: 445296 Take 1 tablet by mouth daily 01/29/2017 07/22/2017 Inactive - First Attempt Ref: [id number] hydrocodone 5 mg-linh taminophen 325 mg tablet RxNorm: 939371 1 Tablet(s) PO Q6-8H as needed 01/25/2017 02/24/2017 Inactive simvastatin 40 mg ta blet RxNorm: 912034 Tablet(s) Take 1 tabl et by mouth daily at bedtime 01/03/2017 12/28/2017 Inactive lisinopril 10 mg tablet RxNorm: 915135 Tablet(s) Take 1 tablet by mouth daily 01/03/2017 01/28/2017 In active Protonix 40 mg table t,delayed release RxNorm: 231832 Tablet(s) Take 1 tabl et by mouth daily 12/28/2016 02/18/2017 Inactive hydrocodone 5 mg-linh taminophen 325 mg tablet RxNorm: 350383 1 Tablet(s) PO Q6-8H as needed 12/26/2016 01/24/2017 Inactive Xanax 0.5 mg tablet RxNorm: 963008 1 Tablet(s) PO TID 12/12/2016 03/11/2017 Inactive simvastatin 40 mg ta blet RxNorm: 535740 Tablet(s) Take 1 tabl et by mouth daily at bedtime 11/30/2016 01/02/2017 Inactive simvastatin 40 mg ta blet RxNorm: 697535 Take 1 tablet by mout h daily at bedtime 11/29/2016 11/29/2016 In active - First Attempt Ref: [id number] Protonix 40 mg table t,delayed release RxNorm: 492987 Take 1 tablet by mout h daily 11/27/2016 12/27/2016 In active - First Attempt Ref: [id number] hydrocodone 5 mg-linh taminophen 325 mg tablet RxNorm: 707922 1 Tablet(s) PO Q6-8H as needed 11/26/2016 12/25/2016 Inactive hydrocodone 5 mg-linh taminophen 325 mg tablet RxNorm: 923511 1 Tablet(s) PO Q8 as needed 10/24/2016 11/25/2016 Inactive Xanax 0.5 mg tablet RxNorm: 586620 1 Tablet(s) PO TID 10/09/2016 12/25/2016 Inactive hydrocodone 5 mg-linh taminophen 325 mg tablet RxNorm: 204693 1 Tablet(s) PO Q8 as needed 09/27/2016 10/23/2016 Inactive lisinopril 10 mg tablet RxNorm: 499834 Take 1 tablet by mouth daily 09/25/2016 01/02/2017 Inactive - First Attempt Ref: [id number] Vitamin D2 50,000 un it capsule RxNorm: 421343 1 Capsule(s) PO QW 09/06/2016 No Stop Date Active hydrocodone 5 mg-linh taminophen 325 mg tablet RxNorm: 438116 1 Tablet(s) PO Q8 as needed 08/28/2016 09/26/2016 Inactive Toujeo SoloStar 300 unit/mL (1.5 mL) subcutaneous insulin pen RxNorm: 0252851 25 Unit(s) SQ QHS 08/23/2016 08/29/2017 Inactive dosage increase hydrocodone 5 mg-linh taminophen 325 mg tablet RxNorm: 933943 1 Tablet(s) PO Q8 as needed 07/26/2016 08/27/2016 Inactive Protonix 40 mg table t,delayed release RxNorm: 223735 Take 1 tablet by mout h daily 07/24/2016 11/26/2016 In active - First Attempt Ref: [id number] hydrocodone 5 mg-linh taminophen 325 mg tablet RxNorm: 867923 1 Tablet(s) PO Q8 as needed 06/19/2016 07/21/2016 Inactive Yovana WheeleroStar 300 unit/mL (1.5 mL) subcutaneous insulin pen RxNorm: 7062152 32 Unit(s) SQ QHS 05/30/2016 08/22/2016 Inactive dosage increase hydrocodone 5 mg-linh taminophen 325 mg tablet RxNorm: 666729 1 Tablet(s) PO Q8 as needed 05/22/2016 06/18/2016 Inactive hydrocodone 5 mg-linh taminophen 325 mg tablet RxNorm: 036090 1 Tablet(s) PO Q8 as needed 04/18/2016 05/17/2016 Inactive Protonix 40 mg table t,delayed release RxNorm: 224541 Take 1 tablet by mout h daily 04/05/2016 07/03/2016 In active - Ref: [id number] metformin 500 mg tablet RxNorm: 007279 Take 1 tablet by mouth daily 04/04/2016 07/02/2016 Inactive - Ref: [id number] Xanax 0.5 mg tablet RxNorm: 873017 1 Tablet(s) PO TID 03/30/2016 09/25/2016 Inactive Xanax 0.5 mg tablet RxNorm: 726000 1 Tablet(s) PO TID 03/23/2016 12/25/2016 Inactive hydrocodone 5 mg-linh taminophen 325 mg tablet RxNorm: 556487 1 Tablet(s) PO Q8 as needed 03/06/2016 04/04/2016 Inactive Cipro 500 mg tablet RxNorm: 530255 1 Tablet(s) PO BID 02/24/2016 03/04/2016 Inactive Miralax 17 gram oral powder packet RxNorm: 287743 1 packet PO every oth er day 01/27/2016 No Stop Date Active hydrocodone 5 mg-linh taminophen 325 mg tablet RxNorm: 042671 1 Tablet(s) PO Q8 as needed 01/27/2016 02/25/2016 Inactive lisinopril 10 mg tablet RxNorm: 228461 1 Tablet(s) PO daily 01/12/2016 09/24/2016 Inactive simvastatin 40 mg ta blet RxNorm: 210181 1 Tablet(s) PO QHS 01/12/2016 11/28/2016 Inactive simvastatin 40 mg ta blet RxNorm: 696520 1 Tablet(s) PO QHS 01/11/2016 01/11/2016 Inactive lisinopril 10 mg tablet RxNorm: 973853 1 Tablet(s) PO daily 01/06/2016 01/11/2016 Inactive simvastatin 40 mg ta blet RxNorm: 822232 1 Tablet(s) PO daily 12/28/2015 01/10/2016 Inactive hydrocodone 5 mg-linh taminophen 325 mg tablet RxNorm: 219541 1 Tablet(s) PO Q8 as needed 12/27/2015 01/26/2016 Inactive Xanax 0.5 mg tablet RxNorm: 122144 1 Tablet(s) PO TID 11/30/2015 03/29/2016 Inactive Toujeo SoloStar 300 unit/mL (1.5 mL) subcutaneous insulin pen RxNorm: 3236906 30 Unit(s) SQ QHS 11/25/2015 05/29/2016 Inactive dosage increase meclizine 25 mg tablet RxNorm: 413491 1 Tablet(s) PO Q6 PRN TAKE ONE TABLET BY MOUTH EVERY 6 HOURS NEEDED 11/25/2015 02/22/2016 Inactive omeprazole 20 mg cap jacquelyn,delayed release RxNorm: 894540 1 Capsule(s) PO daily 10/06/2015 01/26/2016 In active Toujeo SoloStar 300 unit/mL (1.5 mL) subcutaneous insulin pen RxNorm: 9501816 35 Unit(s) SQ QHS 08/02/2015 11/24/2015 Inactive dosage increase Vitamin D2 50,000 un it capsule RxNorm: 284520 1 Capsule(s) PO QW 08/02/2015 09/05/2016 Inactive hydrocodone 5 mg-linh taminophen 325 mg tablet RxNorm: 033979 1 Tablet(s) PO Q8 as needed 07/11/2015 12/26/2015 Inactive Xanax 0.5 mg tablet RxNorm: 443199 1 Tablet(s) PO TID 06/30/2015 06/29/2015 Inactive Xanax 0.5 mg tablet RxNorm: 746868 1 Tablet(s) PO TID 06/30/2015 12/25/2015 Inactive hydrocodone 5 mg-linh taminophen 325 mg tablet RxNorm: 725637 1 Tablet(s) PO Q8 as needed 05/06/2015 07/10/2015 Inactive Symbicort 160 mcg-4. 5 mcg/actuation HFA aerosol inhaler RxNorm: 2864850 INH 04/25/2015 No Stop Date Active Levemir FlexTouch 10 0 unit/mL (3 mL) subcutaneous insulin pen RxNorm: 753457 30 Unit(s) SQ QHS 04/25/2015 11/24/2015 Inactive prednisone 20 mg tablet RxNorm: 828687 1 Tablet(s) PO BID 04/25/2015 04/29/2015 Inactive metformin 500 mg tablet RxNorm: 926931 1 Tablet(s) PO daily 04/25/2015 04/03/2016 Inactive amoxicillin 500 mg c apsule RxNorm: 691294 1 Capsule(s) PO TID 04/14/2015 04/13/2015 Inactive amoxicillin 500 mg c apsule RxNorm: 537628 1 Capsule(s) PO TID a nd recommend probiotic tid (otc) 04/14/2015 04/20/2015 Inactive Kenalog 40 mg/mL bartolome pension for injection RxNorm: 7911589 Milliliter(s) Inj 04/12/2015 04/12/2015 In active hydrocodone 5 mg-linh taminophen 325 mg tablet RxNorm: 122201 1 Tablet(s) PO Q8 as needed 03/30/2015 05/05/2015 Inactive Lantus 100 unit/mL s ubcutaneous solution RxNorm: 340730 25 Unit(s) SQ QPM 03/24/2015 04/25/2015 In active meclizine 25 mg tablet RxNorm: 327370 Tablet(s) TAKE ONE TABLET BY MOUTH EVERY 6 HOURS NEEDED 03/08/2015 04/06/2015 Inactive meclizine 25 mg tablet RxNorm: 202862 TAKE ONE TABLET BY MOUTH EVERY 6 HOURS A S NEEDED 02/25/2015 03/03/2015 Inactive Lantus 100 unit/mL s ubcutaneous solution RxNorm: 394379 20 Unit(s) SQ QPM 02/23/2015 03/23/2015 In active Lantus 100 unit/mL s ubcutaneous solution RxNorm: 759538 25 Unit(s) SQ QPM 02/23/2015 02/22/2015 In active hydrocodone 5 mg-linh taminophen 325 mg tablet RxNorm: 393337 1 Tablet(s) PO Q8 as needed 02/17/2015 03/29/2015 Inactive Xanax 0.5 mg tablet RxNorm: 062421 1 Tablet(s) PO TID 02/03/2015 06/29/2015 Inactive Lantus 100 unit/mL s ubcutaneous solution RxNorm: 316199 20 Unit(s) SQ QPM 12/29/2014 02/22/2015 In active Phenergan 12.5 mg re ctal suppository RxNorm: 791253 1 Suppository RTL Q6 PRN 12/23/2014 No Stop Date Active nausea Kenalog 40 mg/mL bartolome pension for injection RxNorm: 0998110 Milliliter(s) Inj 12/23/2014 12/23/2014 In active prednisone 20 mg tablet RxNorm: 345467 2 Tablet(s) PO daily 12/13/2014 12/17/2014 Inactive prednisone 20 mg tablet RxNorm: 090680 2 Tablet(s) PO daily 12/13/2014 12/12/2014 Inactive meclizine 25 mg tablet RxNorm: 048345 1 Tablet(s) PO Q6 PRN 12/09/2014 02/24/2015 Inactive hydrocodone 5 mg-linh taminophen 325 mg tablet RxNorm: 943858 1 Tablet(s) PO Q8 as needed 12/09/2014 02/16/2015 Inactive Vitamin B-12 1,000 m cg/mL oral drops RxNorm: 9972563 1 Milliliter(s) PO d aily No Start Date Active Alphagan P 0.1 % eye drops RxNorm: 544128 1 Drop(s) OPH BID No Start Date Active aspirin 325 mg table t,delayed release RxNorm: 158470 1 Tablet(s) PO daily No Start Date Active Tricor 145 mg tablet RxNorm: 306619 1 Tablet(s) PO daily No Start Date Active vitamin D11-uqpksvt B1 oral liquid RxNorm: 1,000 Microgram(s) PO daily No Start Date Active atenolol 50 mg tablet RxNorm: 798571 1 Tablet(s) PO daily No Start Date Active Protonix 40 mg table t,delayed release RxNorm: 910067 1 Tablet(s) PO daily No Start Date 04/04/2016 Inactive glipizide 10 mg tablet RxNorm: 769011 1 Tablet(s) PO BID No Start Date 03/22/2015 Inactive Lantus 100 unit/mL s ubcutaneous solution RxNorm: 789763 15 Unit(s) SQ QPM No Start Date 12/28/2014 Inactive lisinopril 10 mg tablet RxNorm: 907858 1 Tablet(s) PO daily No Start Date 01/05/2016 Inactive Vitamin D2 50,000 un it capsule RxNorm: 140746 1 Capsule(s) PO QW No Start Date 08/01/2015 Inactive Toujeo SoloStar 300 unit/mL (1.5 mL) subcutaneous insulin pen RxNorm: 7027419 30 Unit(s) SQ QHS No Start Date 08/01/2015 Inactive simvastatin 40 mg ta blet RxNorm: 314859 1 Tablet(s) PO daily No Start Date 12/27/2015 Inactive testosterone cypiona te 200 mg/mL intramuscular oil RxNorm: 538227 1 Milliliter(s) IM monthly No Start Date 01/16/2018 Inactive hydrocodone 5 mg-linh taminophen 325 mg tablet RxNorm: 658239 1 Tablet(s) PO Q8 as needed No Start Date 12/08/2014 Inactive metformin 500 mg tablet RxNorm: 718098 1 Tablet(s) PO daily No Start Date 04/24/2015 Inactive omeprazole 20 mg cap jacquelyn,delayed release RxNorm: 988099 1 Capsule(s) PO daily No Start Date 10/05/2015 Inactive Flomax 0.4 mg capsule RxNorm: 156266 1 Capsule(s) PO daily No Start Date 03/23/2015 Inactive Medication Administered Medication Codes Instruc tions Start Date Status testosterone cypionate 200 mg/mL intramuscular oil RxNorm: 6298450 Milliliter 10/14/2018 No longer Active testosterone cypionate 200 mg/mL intramuscular oil RxNorm: 2095020 Milliliter 10/03/2018 No longer Active testosterone cypionate 200 mg/mL intramuscular oil RxNorm: 0214494 Milliliter 09/23/2018 No longer Active testosterone cypionate 200 mg/mL intramuscular oil RxNorm: 1040527 1/2Milliliter 09/02/2018 No longer Active testosterone enanthate 200 mg/mL intramuscular oil RxNorm: 656834 Milliliter 08/21/2018 No longer Active testosterone cypionate 200 mg/mL intramuscular oil RxNorm: 4833340 Milliliter 08/08/2018 No longer Active testosterone cypionate 200 mg/mL intramuscular oil RxNorm: 9830543 2Milliliter 07/28/2018 No longer Active testosterone cypionate 200 mg/mL intramuscular oil RxNorm: 048853 Milliliter 07/16/2018 No longer Active testosterone cypionate 200 mg/mL intramuscular oil RxNorm: 068788 Milliliter 07/02/2018 No longer Active testosterone cypionate 200 mg/mL intramuscular oil RxNorm: 356217 Milliliter 06/24/2018 No longer Active testosterone cypionate 200 mg/mL intramuscular oil RxNorm: 360880 Milliliter 06/13/2018 No longer Active testosterone cypionate 200 mg/mL intramuscular oil RxNorm: 269246 Milliliter 06/05/2018 No longer Active testosterone cypionate 200 mg/mL intramuscular oil RxNorm: 566633 Milliliter 05/30/2018 No longer Active testosterone cypionate 200 mg/mL intramuscular oil RxNorm: 618004 Milliliter 05/22/2018 No longer Active testosterone cypionate 200 mg/mL intramuscular oil RxNorm: 630941 2Milliliter 05/12/2018 No longer Active testosterone cypionate 200 mg/mL intramuscular oil RxNorm: 293278 Milliliter 05/02/2018 No longer Active testosterone cypionate 200 mg/mL intramuscular oil RxNorm: 032027 0.5Milliliter 04/24/2018 No longer Active testosterone cypionate 200 mg/mL intramuscular oil RxNorm: 606295 /2Milliliter 04/17/2018 No longer Active ketorolac 60 mg/2 mL intramuscular solution RxNorm: 1825804 Milliliter 03/07/2018 No longer Active Kenalog 40 mg/mL suspension for injection RxNorm: 4263564 1.5Milliliter 01/30/2018 No longer Active testosterone cypionate 200 mg/mL intramuscular oil RxNorm: 689783 Milliliter 01/17/2018 No longer Active Kenalog 40 mg/mL suspension for injection RxNorm: 0290316 Milliliter 04/12/2015 No longer Active Kenalog 40 mg/mL suspension for injection RxNorm: 2326030 Milliliter 12/23/2014 No longer Active Immunizations Vaccine [...] Code Item Item Code Result Date Testosterone [id number] Testo 669.0 ng/dL 09/08/2018 %Hba1C Dsg348 % HbA1c 48281-6 7.4 % 09/08/2018 %Hba1C Rma424 Gluc Ave 166 mg/dL 09/08/2018 Lipid Ord30 CHOL 114 mg/dL 09/08/2018 Lipid Ord30 HDL 28.0 mg/dl 09/08/2018 Lipid Ord30 TRIG 154 mg/dL 09/08/2018 Lipid Ord30 LDL 55 mg/dL 09/08/2018 Lipid Ord30 C/HDL 4.1 Ratio 09/08/2018 Comp Metabolic Vpc996 NA 137 mEq/L 09/08/2018 Comp Metabolic Kwc781 K 4.3 mEq/L 09/08/2018 Comp Metabolic Goe296 CL 100 mEq/L 09/08/2018 Comp Metabolic Eru730 CO2 27.0 mEq/L 09/08/2018 Comp Metabolic Nnf962 AN ION GAP 14 09/08/2018 Comp Metabolic Syy296 GL UCOSE 85 mg/dL 09/08/2018 Comp Metabolic Mfp636 Cr eat 1.1 mg/dL 09/08/2018 Comp Metabolic Hhu751 eG FR 70 ml/min/1.73m2 09/08 Comp Metabolic Tgx242 BUN 11 mg/dL 09/08/2018 Comp Metabolic Tss947 B/ C Ratio 10.3 Ratio 09/08/2018 Comp Metabolic Ark393 CA LCIUM 9.2 mg/dL 09/08/2018 Comp Metabolic Pkm214 AL K PHOS 65 U/L 09/08/2018 Comp Metabolic Ndo933 T(SGOT) 16 U/L 09/08/2018 Comp Metabolic Lij227 AL T(SGPT) 14 U/L 09/08/2018 Comp Metabolic Tgc460 BI LI T 0.6 mg/dL 09/08/2018 Comp Metabolic Sff951 AL BUMIN 4.0 g/dL 09/08/2018 Comp Metabolic Bkh516 TP RO 6.6 g/dL 09/08/2018 Comp Metabolic Tjw865 GL OB 2.6 g/dL 09/08/2018 Comp Metabolic Dox108 A/ G Ratio 1.6 Ratio 09/08/2018 Comp Metabolic Amo492 Os mo 272 mOsmo 09/08/2018 Vitamin D 25 Oh Fxc5421 VITAMIN D, 25 HYDROXY 37.17 ng/mL 09/08/2018 [...] 33.3 pg 09/08/2018 Cbc With Differential Ord2 Wood% 8.1 % 09/08/2018 Cbc With Differential Ord2 [...] 2.44 K/ul 09/08/2018 Cbc With Differential Ord2 Wood ABS# 0.6 K/ul 09/08/2018 Cbc With Differential Ord2 Eos ABS# 0.3 K/ul 09/08/2018 Cbc With Differential Ord2 Baso ABS# 0.0 K/ul 09/08/2018 Tsh Ord6 TSH (3rd IS) 2.72 uIU/mL 09/08/2018 Comp Metabolic Rif719 NA 139 mEq/L 04/01/2018 Comp Metabolic Nzr318 K 4.2 mEq/L 04/01/2018 Comp Metabolic Ibn429 CL 102 mEq/L 04/01/2018 Comp Metabolic Qcz251 CO2 29.0 mEq/L 04/01/2018 Comp Metabolic Srq625 AN ION GAP 12 04/01/2018 Comp Metabolic Bww229 GL UCOSE 87 mg/dL 04/01/2018 Comp Metabolic Ojp397 Cr eat 1.1 mg/dL 04/01/2018 Comp Metabolic Ziq819 eG FR 70 ml/min/1.73m2 04/01 Comp Metabolic Smf526 BUN 21 mg/dL 04/01/2018 Comp Metabolic Pmy802 B/ C Ratio 19.4 Ratio 04/01/2018 Comp Metabolic Log391 CA LCIUM 9.1 mg/dL 04/01/2018 Comp Metabolic Zpo081 AL K PHOS 60 U/L 04/01/2018 Comp Metabolic Wnr875 T(SGOT) 15 U/L 04/01/2018 Comp Metabolic Fkb009 AL T(SGPT) 18 U/L 04/01/2018 Comp Metabolic Wet822 BI LI T 0.4 mg/dL 04/01/2018 Comp Metabolic For839 AL BUMIN 4.0 g/dL 04/01/2018 Comp Metabolic Ghv685 TP RO 6.5 g/dL 04/01/2018 Comp Metabolic Uvb493 GL OB 2.5 g/dL 04/01/2018 Comp Metabolic Vzs268 A/ G Ratio 1.6 Ratio 04/01/2018 Comp Metabolic Ruz304 Os mo 280 mOsmo 04/01/2018 Lipid Ord30 [...] 34.3 pg 04/01/2018 Cbc With Differential Ord2 Wood% 6.0 % 04/01/2018 Cbc With Differential Ord2 [...] 3.25 K/ul 04/01/2018 Cbc With Differential Ord2 Wood ABS# 0.6 K/ul 04/01/2018 Cbc With Differential Ord2 Eos ABS# 0.4 K/ul 04/01/2018 Cbc With Differential Ord2 Baso ABS# 0.0 K/ul 04/01/2018 %Hba1C Xqy577 % HbA1c 18333-0 8.0 % 04/01/2018 %Hba1C Yyy162 Gluc Ave 183 mg/dL 04/01/2018 Testosterone Dlu609 Testo 111.3 ng/dL 04/01/2018 Testosterone Cwi646 Testo 135.4 ng/dL 01/14/2018 Cbc With Differential [...] 36.0 pg 01/14/2018 Cbc With Differential Ord2 Wood% 6.8 % 01/14/2018 Cbc With Differential Ord2 [...] 2.71 K/ul 01/14/2018 Cbc With Differential Ord2 Wood ABS# 0.8 K/ul 01/14/2018 Cbc With Differential Ord2 Eos ABS# 0.2 K/ul 01/14/2018 Cbc With Differential Ord2 Baso ABS# 0.0 K/ul 01/14/2018 Comp Metabolic Ono937 NA 134 mEq/L 11/20/2017 Comp Metabolic Emp231 K 4.4 mEq/L 11/20/2017 Comp Metabolic Otq404 CL 99 mEq/L 11/20/2017 Comp Metabolic Wci312 CO2 29.0 mEq/L 11/20/2017 Comp Metabolic Rfa659 AN ION GAP 10 11/20/2017 Comp Metabolic Poi123 GL UCOSE 218 mg/dL 11/20/2017 Comp Metabolic Brq115 Cr eat 1.0 mg/dL 11/20/2017 Comp Metabolic Vwq734 eG FR 78 ml/min/1.73m2 11/20 Comp Metabolic Qcs850 BUN 13 mg/dL 11/20/2017 Comp Metabolic Ktz680 B/ C Ratio 13.3 Ratio 11/20/2017 Comp Metabolic Mpp621 CA LCIUM 9.0 mg/dL 11/20/2017 Comp Metabolic Ehc129 AL K PHOS 71 U/L 11/20/2017 Comp Metabolic Tuy904 T(SGOT) 18 U/L 11/20/2017 Comp Metabolic Vut281 AL T(SGPT) 17 U/L 11/20/2017 Comp Metabolic Wvf509 BI LI T 0.4 mg/dL 11/20/2017 Comp Metabolic Quz652 AL BUMIN 4.1 g/dL 11/20/2017 Comp Metabolic Bty475 TP RO 6.5 g/dL 11/20/2017 Comp Metabolic Kde564 GL OB 2.4 g/dL 11/20/2017 Comp Metabolic Pze756 A/ G Ratio 1.8 Ratio 11/20/2017 Comp Metabolic Ucp332 Os mo 275 mOsmo 11/20/2017 Cbc With [...] 35.2 pg 11/20/2017 Cbc With Differential Ord2 Wood% 7.2 % 11/20/2017 Cbc With Differential Ord2 [...] 3.34 K/ul 11/20/2017 Cbc With Differential Ord2 Wood ABS# 0.6 K/ul 11/20/2017 Cbc With Differential Ord2 Eos ABS# 0.3 K/ul 11/20/2017 Cbc With Differential Ord2 Baso ABS# 0.0 K/ul 11/20/2017 Vitamin D 25 Oh Wyv4534 VITAMIN D, 25 HYDROXY 43.72 ng/mL 11/20/2017 %Hba1C Qbi980 % HbA1c 14391-4 7.4 % 11/20/2017 %Hba1C Pwz215 Gluc Ave 166 mg/dL 11/20/2017 %Hba1C Cjr608 % HbA1c 71841-8 7.2 % 08/20/2017 %Hba1C Gjt672 Gluc Ave 160 mg/dL 08/20/2017 Lipid Ord30 [...] 34.7 pg 08/20/2017 Cbc With Differential Ord2 Wood% 7.6 % 08/20/2017 Cbc With Differential Ord2 [...] 2.42 K/ul 08/20/2017 Cbc With Differential Ord2 Wood ABS# 0.6 K/ul 08/20/2017 Cbc With Differential Ord2 Eos ABS# 0.3 K/ul 08/20/2017 Cbc With Differential Ord2 Baso ABS# 0.0 K/ul 08/20/2017 Tsh Ord6 hTSH II 2.27 uIU/mL 08/20/2017 Comp Metabolic Rbx197 NA 138 mEq/L 08/20/2017 Comp Metabolic Juc130 K 4.3 mEq/L 08/20/2017 Comp Metabolic Sqy060 CL 102 mEq/L 08/20/2017 Comp Metabolic Icj806 CO2 29.0 mEq/L 08/20/2017 Comp Metabolic Wij665 AN ION GAP 11 08/20/2017 Comp Metabolic Mgr184 GL UCOSE 89 mg/dL 08/20/2017 Comp Metabolic Neu115 Cr eat 1.0 mg/dL 08/20/2017 Comp Metabolic Opa532 eG FR 80 ml/min/1.73m2 08/20 Comp Metabolic Pwn422 BUN 13 mg/dL 08/20/2017 Comp Metabolic She378 B/ C Ratio 13.5 Ratio 08/20/2017 Comp Metabolic Dei408 CA LCIUM 9.2 mg/dL 08/20/2017 Comp Metabolic Ngi126 AL K PHOS 69 U/L 08/20/2017 Comp Metabolic Sdy394 T(SGOT) 18 U/L 08/20/2017 Comp Metabolic Pdm458 AL T(SGPT) 19 U/L 08/20/2017 Comp Metabolic Zcr891 BI LI T 0.6 mg/dL 08/20/2017 Comp Metabolic Fwo598 AL BUMIN 4.0 g/dL 08/20/2017 Comp Metabolic Gwb694 TP RO 6.6 g/dL 08/20/2017 Comp Metabolic Ing194 GL OB 2.6 g/dL 08/20/2017 Comp Metabolic Tgy404 A/ G Ratio 1.5 Ratio 08/20/2017 Comp Metabolic Nkt787 Os mo 275 mOsmo 08/20/2017 Vitamin D 25 Oh Bsf6807 VITAMIN D, 25 HYDROXY 30.96 ng/mL 08/20/2017 B12 Mrh097 B12 >1500.00 pg/ml 02/22/2017 Cbc With Differential [...] 35.7 pg 02/20/2017 Cbc With Differential Ord2 Wood% 6.3 % 02/20/2017 Cbc With Differential Ord2 [...] 3.19 K/ul 02/20/2017 Cbc With Differential Ord2 Wood ABS# 0.5 K/ul 02/20/2017 Cbc With Differential Ord2 Eos ABS# 0.4 K/ul 02/20/2017 Cbc With Differential Ord2 Baso ABS# 0.0 K/ul 02/20/2017 Comp Metabolic Fau727 NA 138 mEq/L 02/20/2017 Comp Metabolic Fxv102 K 4.5 mEq/L 02/20/2017 Comp Metabolic Vbr794 CL 101 mEq/L 02/20/2017 Comp Metabolic Zxe983 CO2 31.0 mEq/L 02/20/2017 Comp Metabolic Mxq562 AN ION GAP 11 02/20/2017 Comp Metabolic Aez763 GL UCOSE 120 mg/dL 02/20/2017 Comp Metabolic Iyu813 Cr eat 0.9 mg/dL 02/20/2017 Comp Metabolic Khd436 eG FR 83 ml/min/1.73m2 02/20 Comp Metabolic Kyn648 BUN 15 mg/dL 02/20/2017 Comp Metabolic Etp786 B/ C Ratio 16.1 Ratio 02/20/2017 Comp Metabolic Erc171 CA LCIUM 9.1 mg/dL 02/20/2017 Comp Metabolic Dkl784 AL K PHOS 67 U/L 02/20/2017 Comp Metabolic Ohw118 T(SGOT) 15 U/L 02/20/2017 Comp Metabolic Pbp014 AL T(SGPT) 16 U/L 02/20/2017 Comp Metabolic Oxk978 BI LI T 0.5 mg/dL 02/20/2017 Comp Metabolic Xhg034 AL BUMIN 4.0 g/dL 02/20/2017 Comp Metabolic Iaz474 TP RO 6.4 g/dL 02/20/2017 Comp Metabolic Gmb950 GL OB 2.4 g/dL 02/20/2017 Comp Metabolic Agm554 A/ G Ratio 1.7 Ratio 02/20/2017 Comp Metabolic Pih413 Os mo 278 mOsmo 02/20/2017 Tsh Ord6 hTSH II 2.05 uIU/mL 02/20/2017 %Hba1C Nxm259 % HbA1c 05411-0 7.6 % 02/20/2017 %Hba1C Hxa451 Gluc Ave 171 mg/dL 02/20/2017 Vitamin D 25 Oh Rim6561 VITAMIN D, 25 HYDROXY 44.40 ng/mL 12/21/2016 Comp Metabolic Qia038 NA 131 mEq/L 12/21/2016 Comp Metabolic Ogc272 K 4.2 mEq/L 12/21/2016 Comp Metabolic Qny553 CL 97 mEq/L 12/21/2016 Comp Metabolic Rqc987 CO2 27.0 mEq/L 12/21/2016 Comp Metabolic Dua165 AN ION GAP 11 12/21/2016 Comp Metabolic Ang404 GL UCOSE 266 mg/dL 12/21/2016 Comp Metabolic Any010 Cr eat 0.9 mg/dL 12/21/2016 Comp Metabolic Mmh310 eG FR 88 ml/min/1.73m2 12/21 Comp Metabolic Mxr942 BUN 12 mg/dL 12/21/2016 Comp Metabolic Bwv640 B/ C Ratio 13.6 Ratio 12/21/2016 Comp Metabolic Fhs818 CA LCIUM 8.6 mg/dL 12/21/2016 Comp Metabolic Hpy712 AL K PHOS 69 U/L 12/21/2016 Comp Metabolic Jou461 T(SGOT) 15 U/L 12/21/2016 Comp Metabolic Qum397 AL T(SGPT) 14 U/L 12/21/2016 Comp Metabolic Wkn333 BI LI T 0.3 mg/dL 12/21/2016 Comp Metabolic Cvv951 AL BUMIN 3.7 g/dL 12/21/2016 Comp Metabolic Trj950 TP RO 5.9 g/dL 12/21/2016 Comp Metabolic Zrg653 GL OB 2.2 g/dL 12/21/2016 Comp Metabolic Fre733 A/ G Ratio 1.7 Ratio 12/21/2016 Comp Metabolic Cnz781 Os mo 272 mOsmo 12/21/2016 Cbc With [...] 34.6 pg 12/21/2016 Cbc With Differential Ord2 Wood% 6.9 % 12/21/2016 Cbc With Differential Ord2 [...] 2.05 K/ul 12/21/2016 Cbc With Differential Ord2 Wood ABS# 0.4 K/ul 12/21/2016 Cbc With Differential Ord2 Eos ABS# 0.2 K/ul 12/21/2016 Cbc With Differential Ord2 Baso ABS# 0.0 K/ul 12/21/2016 Comp Metabolic Qfu938 NA 138 mEq/L 09/03/2016 Comp Metabolic Xvp274 K 4.5 mEq/L 09/03/2016 Comp Metabolic Zhz511 CL 102 mEq/L 09/03/2016 Comp Metabolic Jvw136 CO2 30.0 mEq/L 09/03/2016 Comp Metabolic Wja236 AN ION GAP 11 09/03/2016 Comp Metabolic Ebi617 GL UCOSE 113 mg/dL 09/03/2016 Comp Metabolic Avc106 Cr eat 1.0 mg/dL 09/03/2016 Comp Metabolic Qlp739 eG FR 81 ml/min/1.73m2 09/03 Comp Metabolic Eud339 BUN 10 mg/dL 09/03/2016 Comp Metabolic Pvz549 B/ C Ratio 10.5 Ratio 09/03/2016 Comp Metabolic Jsk858 CA LCIUM 9.1 mg/dL 09/03/2016 Comp Metabolic Hds454 AL K PHOS 71 U/L 09/03/2016 Comp Metabolic Uol128 T(SGOT) 18 U/L 09/03/2016 Comp Metabolic Wfk844 AL T(SGPT) 17 U/L 09/03/2016 Comp Metabolic Fir967 BI LI T 0.6 mg/dL 09/03/2016 Comp Metabolic Bet872 AL BUMIN 4.1 g/dL 09/03/2016 Comp Metabolic Vdw112 TP RO 6.4 g/dL 09/03/2016 Comp Metabolic Mzw557 GL OB 2.3 g/dL 09/03/2016 Comp Metabolic Eqd890 A/ G Ratio 1.8 Ratio 09/03/2016 Comp Metabolic Btc639 Os mo 276 mOsmo 09/03/2016 Vitamin D 25 Oh Xbm8037 VITAMIN D, 25 HYDROXY 28.23 ng/mL 09/03/2016 [...] 34.4 pg 09/03/2016 Cbc With Differential Ord2 Wood% 8.9 % 09/03/2016 Cbc With Differential Ord2 [...] 3.34 K/ul 09/03/2016 Cbc With Differential Ord2 Wood ABS# 0.7 K/ul 09/03/2016 Cbc With Differential Ord2 Eos ABS# 0.4 K/ul 09/03/2016 Cbc With Differential Ord2 Baso ABS# 0.0 K/ul 09/03/2016 Lipid Ord30 CHOL 120 mg/dL 09/03/2016 Lipid Ord30 HDL 33.0 mg/dl 09/03/2016 Lipid Ord30 TRIG 161 mg/dL 09/03/2016 Lipid Ord30 LDL 55 mg/dL 09/03/2016 Lipid Ord30 C/HDL 3.6 Ratio 09/03/2016 %Hba1C Exd814 % HbA1c 74992-5 7.5 % 09/03/2016 %Hba1C Sjp054 Gluc Ave 169 mg/dL 09/03/2016 Tsh Ord6 hTSH II 1.50 uIU/mL 05/23/2016 %Hba1C Nxh214 % HbA1c 79745-1 7.6 % 05/23/2016 %Hba1C Pnm596 Gluc Ave 171 mg/dL 05/23/2016 Comp Metabolic Ckt291 NA 135 mEq/L 05/23/2016 Comp Metabolic Tet743 K 4.4 mEq/L 05/23/2016 Comp Metabolic Ell475 CL 99 mEq/L 05/23/2016 Comp Metabolic Ayh634 CO2 28.0 mEq/L 05/23/2016 Comp Metabolic Sfp803 AN ION GAP 12 05/23/2016 Comp Metabolic Rzx559 GL UCOSE 257 mg/dL 05/23/2016 Comp Metabolic Awp121 Cr eat 0.8 mg/dL 05/23/2016 Comp Metabolic Kzu981 eG FR 95 ml/min/1.73m2 05/23 Comp Metabolic Dny706 BUN 11 mg/dL 05/23/2016 Comp Metabolic Mxp360 B/ C Ratio 13.3 Ratio 05/23/2016 Comp Metabolic Bbe106 CA LCIUM 9.0 mg/dL 05/23/2016 Comp Metabolic Cbs929 AL K PHOS 82 U/L 05/23/2016 Comp Metabolic Wjf686 T(SGOT) 21 U/L 05/23/2016 Comp Metabolic Xfx914 AL T(SGPT) 20 U/L 05/23/2016 Comp Metabolic Skr752 BI LI T 0.3 mg/dL 05/23/2016 Comp Metabolic Qlh827 AL BUMIN 4.0 g/dL 05/23/2016 Comp Metabolic Wde293 TP RO 6.4 g/dL 05/23/2016 Comp Metabolic Jpw374 GL OB 2.4 g/dL 05/23/2016 Comp Metabolic Vhb912 A/ G Ratio 1.6 Ratio 05/23/2016 Comp Metabolic Jck497 Os mo 278 mOsmo 05/23/2016 Cbc With [...] 34.5 pg 05/23/2016 Cbc With Differential Ord2 Wood% 6.1 % 05/23/2016 Cbc With Differential Ord2 [...] 2.38 K/ul 05/23/2016 Cbc With Differential Ord2 Wood ABS# 0.4 K/ul 05/23/2016 Cbc With Differential Ord2 Eos ABS# 0.2 K/ul 05/23/2016 Cbc With Differential Ord2 Baso ABS# 0.0 K/ul 05/23/2016 B12 Mhu229 B12 597.00 pg/ml 05/23/2016 Metabolic Ord15 NA [...] 0.92 uIU/mL 07/29/2015 Vitamin D 25 Oh Otz5679 VITAMIN D, 25 HYDROXY 26.93 ng/mL 07/29/2015 %Hba1C Jdj576 % HbA1c 44050-9 8.8 % 07/29/2015 %Hba1C Krp601 Gluc Ave 206 mg/dL 07/29/2015 Cbc With [...] Ord2 RDW 14.9 % 07/29/2015 Comp Metabolic Fda805 NA 138 mEq/L 07/29/2015 Comp Metabolic Pgk102 K 4.4 mEq/L 07/29/2015 Comp Metabolic Qfn410 CL 102 mEq/L 07/29/2015 Comp Metabolic Ouu672 CO2 28.0 mEq/L 07/29/2015 Comp Metabolic Sud951 AN ION GAP 12 07/29/2015 Comp Metabolic Ckf706 GL UCOSE 261 mg/dL 07/29/2015 Comp Metabolic Zgk314 Cr eat 1.0 mg/dL 07/29/2015 Comp Metabolic Wfd133 eG FR 77 ml/min/1.73m2 07/29 Comp Metabolic Uxd486 BUN 13 mg/dL 07/29/2015 Comp Metabolic Son022 B/ C Ratio 13.0 Ratio 07/29/2015 Comp Metabolic Mko640 CA LCIUM 9.1 mg/dL 07/29/2015 Comp Metabolic Vwq288 AL K PHOS 64 U/L 07/29/2015 Comp Metabolic Lsi140 T(SGOT) 20 U/L 07/29/2015 Comp Metabolic Isv178 AL T(SGPT) 22 U/L 07/29/2015 Comp Metabolic Vku820 BI LI T 0.4 mg/dL 07/29/2015 Comp Metabolic Esz849 AL BUMIN 4.0 g/dL 07/29/2015 Comp Metabolic Zvu962 TP RO 6.1 g/dL 07/29/2015 Comp Metabolic Gwb307 GL OB 2.1 g/dL 07/29/2015 Comp Metabolic Ysd686 A/ G Ratio 1.9 Ratio 07/29/2015 Comp Metabolic Huf042 Os mo 285 mOsmo 07/29/2015 Cbc With [...] Ord2 RDW 13.1 % 05/06/2015 Comp Metabolic Ktt497 NA 134 mEq/L 05/06/2015 Comp Metabolic Eih856 K 4.4 mEq/L 05/06/2015 Comp Metabolic Vhn565 CL 98 mEq/L 05/06/2015 Comp Metabolic Zgj309 CO2 29.0 mEq/L 05/06/2015 Comp Metabolic Scp434 AN ION GAP 11 05/06/2015 Comp Metabolic Fli906 GL UCOSE 321 mg/dL 05/06/2015 Comp Metabolic Mkq808 Cr eat 1.0 mg/dL 05/06/2015 Comp Metabolic Sld724 eG FR 78 ml/min/1.73m2 05/06 Comp Metabolic Lky822 BUN 20 mg/dL 05/06/2015 Comp Metabolic Geo097 B/ C Ratio 20.4 Ratio 05/06/2015 Comp Metabolic Vjh754 CA LCIUM 9.5 mg/dL 05/06/2015 Comp Metabolic Sgs157 AL K PHOS 62 U/L 05/06/2015 Comp Metabolic Uzi048 T(SGOT) 21 U/L 05/06/2015 Comp Metabolic Dlh558 AL T(SGPT) 37 U/L 05/06/2015 Comp Metabolic Jyy671 BI LI T 0.4 mg/dL 05/06/2015 Comp Metabolic Mic421 AL BUMIN 3.8 g/dL 05/06/2015 Comp Metabolic Koo290 TP RO 6.1 g/dL 05/06/2015 Comp Metabolic Czn251 GL OB 2.3 g/dL 05/06/2015 Comp Metabolic Lst165 A/ G Ratio 1.7 Ratio 05/06/2015 Comp Metabolic Spk553 Os mo 283 mOsmo 05/06/2015 Tsh Ord6 hTSH II 1.65 uIU/mL 02/18/2015 B12 Gci183 B12 605.00 pg/ml 02/18/2015 %Hba1C Lql109 % HbA1c 83393-9 8.3 % 02/18/2015 %Hba1C Qgd516 Gluc Ave 192 mg/dL 02/18/2015 Cbc With [...] Ord2 RDW 13.9 % 02/17/2015 Comp Metabolic Glp024 NA 137 mEq/L 02/17/2015 Comp Metabolic Scq119 K 4.4 mEq/L 02/17/2015 Comp Metabolic Qbu322 CL 100 mEq/L 02/17/2015 Comp Metabolic Swl041 CO2 31.0 mEq/L 02/17/2015 Comp Metabolic Twe400 AN ION GAP 10 02/17/2015 Comp Metabolic Alw516 GL UCOSE 307 mg/dL 02/17/2015 Comp Metabolic Lhk834 Cr eat 1.0 mg/dL 02/17/2015 Comp Metabolic Wgt562 eG FR 74 ml/min/1.73m2 02/17 Comp Metabolic Cto354 BUN 22 mg/dL 02/17/2015 Comp Metabolic Typ904 B/ C Ratio 21.4 Ratio 02/17/2015 Comp Metabolic One828 CA LCIUM 9.5 mg/dL 02/17/2015 Comp Metabolic Sxo997 AL K PHOS 78 U/L 02/17/2015 Comp Metabolic Oki391 T(SGOT) 18 U/L 02/17/2015 Comp Metabolic Xog316 AL T(SGPT) 32 U/L 02/17/2015 Comp Metabolic Suo213 BI LI T 0.5 mg/dL 02/17/2015 Comp Metabolic Xvn033 AL BUMIN 4.3 g/dL 02/17/2015 Comp Metabolic Ice549 TP RO 6.7 g/dL 02/17/2015 Comp Metabolic Fhu810 GL OB 2.4 g/dL 02/17/2015 Comp Metabolic Uot539 A/ G Ratio 1.8 Ratio 02/17/2015 Comp Metabolic Mzg305 Os mo 289 mOsmo 02/17/2015 Review of [...] inspection of skin Location: face 03/07/2015 on orthodoxy, cheeks,actinic keratosis with irritation on left cheek - left orthodoxy - croptherapy on these two lesions - [...] Procedure Codes Date THER/PROPH/DIAG INJ SC/IM CPT-4: 12876 10/14/2018 THER/PROPH/DIAG INJ SC/IM CPT-4: 89889 10/03/2018 THER/PROPH/DIAG INJ SC/IM CPT-4: 09318 09/23/2018 THER/PROPH/DIAG INJ SC/IM CPT-4: 92548 09/02/2018 THER/PROPH/DIAG INJ SC/IM CPT-4: 91333 08/21/2018 THER/PROPH/DIAG INJ SC/IM CPT-4: 83707 08/08/2018 THER/PROPH/DIAG INJ SC/IM CPT-4: 91210 07/28/2018 THER/PROPH/DIAG INJ SC/IM CPT-4: 87074 07/16/2018 THER/PROPH/DIAG INJ SC/IM CPT-4: 86194 07/02/2018 PPPS, SUBSEQ VISIT CPT- 4: G0439 06/30/2018 THER/PROPH/DIAG INJ SC/IM CPT-4: 33511 06/24/2018 THER/PROPH/DIAG INJ SC/IM CPT-4: 83533 06/13/2018 ADMIN INFLUENZA VIRU S VAC CPT-4: G0008 06/06/2018 FLU VACC PRSV FREE I NC ANTIG CPT-4: 50338 06/06/2018 THER/PROPH/DIAG INJ SC/IM CPT-4: 25300 06/05/2018 THER/PROPH/DIAG INJ SC/IM CPT-4: 96748 05/30/2018 THER/PROPH/DIAG INJ SC/IM CPT-4: 04417 05/22/2018 THER/PROPH/DIAG INJ SC/IM CPT-4: 77957 05/12/2018 THER/PROPH/DIAG INJ SC/IM CPT-4: 38452 05/02/2018 THER/PROPH/DIAG INJ SC/IM CPT-4: 94599 04/24/2018 THER/PROPH/DIAG INJ SC/IM CPT-4: 12955 04/17/2018 KETOROLAC TROMETHAMI NE INJ CPT-4: J1885 03/07/2018 URINALYSIS NONAUTO W /O SCOPE CPT-4: 79724 03/07/2018 THER/PROPH/DIAG INJ SC/IM CPT-4: 38774 02/20/2018 TRIAMCINOLONE ACET I [place] NOS CPT-4: J3301 01/30/2018 THER/PROPH/DIAG INJ SC/IM CPT-4: 33446 01/17/2018 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 3-[address]: 059243261 CPT-4: G0436 04/25/2017 ADMIN INFLUENZA VIRU S VAC CPT-4: G0008 04/25/2017 ADMIN PNEUMOCOCCAL V ACCINE SNOMED CT: 96727986 CPT-4: G0009 04/25/2017 PNEUMOCOCCAL VACC [address]: 96619751 CPT-4: 98552 04/25/2017 FLU VACC PRSV FREE I NC ANTIG CPT-4: 32464 04/25/2017 ADMIN INFLUENZA VIRU S VAC CPT-4: G0008 05/22/2016 FLU VACC 4 TELLY 3 YRS PLUS IM Formatting Model/CDA Sections, Assigned to/Angela Clemons SNOMED CT: 13588474 CPT-4: 69017Wejohdp 05/22/2016 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 3-[address]: 810819901 CPT-4: G0436 11/25/2015 URINALYSIS NONAUTO W /O SCOPE CPT-4: 97125 05/09/2015 TRIAMCINOLONE ACET I [place] NOS CPT-4: J3301 04/12/2015 DESTRUCT PREMALG LESION CPT-4: 70782 03/07/2015 DESTRUCT PREMALG LES 2-14 CPT-4: 26934 03/07/2015 REMOVE IMPACTED EAR WAX UNI CPT-4: 41462 12/31/2014 THER/PROPH/DIAG INJ SC/IM CPT-4: 44644 12/23/2014 TRIAMCINOLONE ACET I [place] NOS CPT-4: J3301 12/23/2014 Vital Signs Date Vital 10/17/2018 Blood Pressure 1: 124/54 Code: 8480-6 BMI: 21.9 Code: 88704-1 Heart Rate 1: 64 bpm Height: 5'11" SpO2: 93% Weight: 157 lbs 09/02/2018 Blood Pressure 1: 140/80 Code: 8480-6 BMI: 21.2 Code: 42064-1 Heart Rate 1: 68 bpm Height: 5'11" SpO2: 97% Weight: 152 lbs 06/30/2018 BMI: 21.8 Code: 22813-0 Height: 5'11" Weight: 156 lbs 06/06/2018 Blood Pressure 1: 128/76 Code: 8480-6 BMI: 22.0 Code: 54149-0 Heart Rate 1: 81 bpm Height: 5'11" SpO2: 92% Weight: 158 lbs 04/04/2018 Blood Pressure 1: 124/70 Code: 8480-6 BMI: 20.8 Code: 21009-4 Heart Rate 1: 65 bpm Height: 5'11" SpO2: 95% Weight: 149 lbs 03/07/2018 Blood Pressure 1: 148/70 Code: 8480-6 BMI: 21.2 Code: 06752-2 Heart Rate 1: 66 bpm Height: 5'11" SpO2: 94% Weight: 152 lbs 02/20/2018 Blood Pressure 1: 134/58 Code: 8480-6 BMI: 20.5 Code: 48554-0 Heart Rate 1: 61 bpm Height: 5'11" SpO2: 92% Weight: 147 lbs 01/30/2018 Blood Pressure 1: 158/68 Code: 8480-6 BMI: 21.5 Code: 36482-2 Heart Rate 1: 71 bpm Height: 5'11" SpO2: 92% Weight: 154 lbs 01/14/2018 Blood Pressure 1: 156/70 Code: 8480-6 Height: Weight: 01/13/2018 Blood Pressure 1: 148/62 Code: 8480-6 BMI: 20.9 Code: 36258-8 Heart Rate 1: 54 bpm Height: 5'11" SpO2: 97% Weight: 150 lbs 11/19/2017 Blood Pressure 1: 150/60 Code: 8480-6 BMI: 21.8 Code: 32861-7 Heart Rate 1: 63 bpm Height: 5'11" SpO2: 98% Weight: 156 lbs 10/02/2017 Blood Pressure 1: 168/60 Code: 8480-6 BMI: 21.9 Code: 60907-1 Heart Rate 1: 52 bpm Height: 5'11" SpO2: 97% Weight: 157 lbs 07/23/2017 Blood Pressure 1: 170/70 Code: 8480-6 BMI: 21.8 Code: 58337-5 Heart Rate 1: 65 bpm Height: 5'11" SpO2: 98% Weight: 156 lbs 04/25/2017 Blood Pressure 1: 138/60 Code: 8480-6 BMI: 21.6 Code: 62987-5 Heart Rate 1: 55 bpm Height: 5'11" SpO2: 93% Weight: 155 lbs 02/19/2017 Blood Pressure 1: 138/64 Code: 8480-6 BMI: 21.3 Code: 73689-5 Heart Rate 1: 52 bpm Height: 5'11" SpO2: 96% Weight: 152 lbs 8 oz 01/21/2017 Blood Pressure 1: 160/68 Code: 8480-6 BMI: 21.3 Code: 46701-6 Heart Rate 1: 62 bpm Height: 5'11" SpO2: 96% Weight: 153 lbs 12/20/2016 Blood Pressure 1: 124/66 Code: 8480-6 BMI: 21.5 Code: 64737-2 Height: 5'11" Weight: 154 lbs 08/23/2016 Blood Pressure 1: 142/52 Code: 8480-6 BMI: 21.2 Code: 86928-7 Heart Rate 1: 54 bpm Height: 5'11" SpO2: 96% Weight: 152 lbs 05/22/2016 Blood Pressure 1: 130/76 Code: 8480-6 BMI: 21.5 Code: 13211-6 Heart Rate 1: 78 bpm Height: 5'11" SpO2: 92% Weight: 154 lbs 02/24/2016 Blood Pressure 1: 128/80 Code: 8480-6 BMI: 21.2 Code: 24653-6 Heart Rate 1: 74 bpm Height: 5'11" SpO2: 96% Weight: 152 lbs 01/27/2016 Blood Pressure 1: 144/60 Code: 8480-6 BMI: 21.2 Code: 41449-8 Heart Rate 1: 74 bpm Height: 5'11" SpO2: 97% Weight: 152 lbs 11/25/2015 Blood Pressure 1: 110/52 Code: 8480-6 BMI: 21.9 Code: 39873-0 Heart Rate 1: 65 bpm Height: 5'11" SpO2: 92% Weight: 157 lbs 07/28/2015 Blood Pressure 1: 138/62 Code: 8480-6 BMI: 21.8 Code: 66678-0 Heart Rate 1: 63 bpm Height: 5'11" SpO2: 91% Weight: 156 lbs 05/26/2015 Blood Pressure 1: 120/58 Code: 8480-6 BMI: 21.5 Code: 08854-7 Heart Rate 1: 99 bpm Height: 5'11" SpO2: 96% Weight: 154 lbs 05/06/2015 Blood Pressure 1: 120/58 Code: 8480-6 BMI: 21.2 Code: 85187-4 Heart Rate 1: 66 bpm Height: 5'11" SpO2: 96% Weight: 152 lbs 04/25/2015 Blood Pressure 1: 136/62 Code: 8480-6 BMI: 21.2 Code: 27931-9 Heart Rate 1: 63 bpm Height: 5'11" SpO2: 97% Weight: 152 lbs 04/12/2015 Blood Pressure 1: 160/58 Code: 8480-6 BMI: 21.6 Code: 30607-8 Heart Rate 1: 62 bpm Height: 5'11" Weight: 155 lbs 03/24/2015 Blood Pressure 1: 138/68 Code: 8480-6 BMI: 22.0 Code: 85860-5 Heart Rate 1: 65 bpm Height: 5'11" SpO2: 96% Weight: 158 lbs 03/07/2015 Blood Pressure 1: 116/52 Code: 8480-6 BMI: 22.2 Code: 92298-1 Heart Rate 1: 64 bpm Height: 5'11" SpO2: 97% Weight: 159 lbs 02/17/2015 Blood Pressure 1: 148/58 Code: 8480-6 BMI: 21.3 Code: 88171-3 Heart Rate 1: 63 bpm Height: 5'11" SpO2: 97% Weight: 153 lbs 12/31/2014 Blood Pressure 1: 100/60 Code: 8480-6 BMI: 21.8 Code: 66119-0 Heart Rate 1: 68 bpm Height: 5'11" Weight: 156 lbs 12/23/2014 Blood Pressure 1: 148/64 Code: 8480-6 BMI: 21.9 Code: 65896-9 Heart Rate 1: 64 bpm Height: 5'11" [...] in his feet occasionally hypertension Quality angely hyalee hypertension 11/19/2017 None hypertension Onset and Resolution [...] Encounters Encounter Performer Loca tion Codes Date ([id number]) [id number] EST. P ATIENT, LEVEL III Diagnosis: Orthostatic hypotension[ICD10: I95.1] Diagnosis: Low back pain[ICD10: M54.5] Diagnosis: Unsteadiness on feet[ICD10: R26.81] Karmen Ash MD, [facility] CPT-4: 38237 10/17/2018 ([id number]) [id number] EST. P ATIENT, LEVEL IV Diagnosis: Essential (primary) hypertension[ICD10: I10] Diagnosis: Chronic obstructive pulmonary disease, unspecified[ICD10: J44.9] Diagnosis: Type 2 diabetes mellitus with hyperglycemia[ICD10: E11.65] Diagnosis: Vitamin D deficiency, unspecified[ICD10: E55.9] Diagnosis: Mixed hyperlipidemia[ICD10: E78.2] Diagnosis: Testicular dysfunction, unspecified[ICD10: E29.9] Karmen Ash MD, [facility] CPT-4: 45172 09/02/2018 ([id number]) 01607 EST. P ATIENT, LEVEL IV Diagnosis: Cellulitis of face[ICD10: L03.211] Diagnosis: Type 2 diabetes mellitus without complications[ICD10: E11.9] Diagnosis: Essential (primary) hypertension[ICD10: I10] Diagnosis: Encounter for immunization[ICD10: Z23] Karmen Ash MD, [facility] CPT-4: 44558 06/06/2018 ([id number]) 05195 EST. P ATIENT, LEVEL IV Diagnosis: Essential (primary) hypertension[ICD10: I10] Diagnosis: Chronic obstructive pulmonary disease, unspecified[ICD10: J44.9] Diagnosis: Testicular dysfunction, unspecified[ICD10: E29.9] Diagnosis: Type 2 diabetes mellitus with hyperglycemia[ICD10: E11.65] [facility] CPT-4: 81763 04/04/2018 ([id number]) 42420 EST. P ATIENT, LEVEL III Diagnosis: Low back pain[ICD10: M54.5] Diagnosis: Dysuria[ICD10: R30.0] [facility] CPT-4: 88156 03/07/2018 ([id number] EST. P ATIENT, LEVEL IV Diagnosis: Essential (primary) hypertension[ICD10: I10] Diagnosis: Chronic obstructive pulmonary disease, unspecified[ICD10: J44.9] Diagnosis: Abnormal weight loss[ICD10: R63.4] Diagnosis: Low back pain[ICD10: M54.5] Diagnosis: Testicular dysfunction, unspecified[ICD10: E29.9] Diagnosis: Type 2 diabetes mellitus with hyperglycemia[ICD10: E11.65] Karmen Ash MD, [facility] CPT-4: 76814 02/20/2018 ([id number]) 50691 EST. P ATIENT, LEVEL III Diagnosis: Chronic obstructive pulmonary disease with (acute) exacerbation[ICD10: J44.1] Karmen Ash MD, [facility] CPT-4: 20433 01/30/2018 72834 EST. PATIENT, LEVEL II Diagnosis: Insect bite (nonvenomous), left lower leg, initial encounter[ICD10: S80.862A] Karmen Ash MD, [facility] CPT-4: 37841 01/14/2018 ([id number]) 08396 EST. P ATIENT, LEVEL IV Diagnosis: Type 2 diabetes mellitus with hyperglycemia[ICD10: E11.65] Diagnosis: Chronic obstructive pulmonary disease, unspecified[ICD10: J44.9] Diagnosis: Other fatigue[ICD10: R53.83] Karmen Ash MD, [facility] CPT- 4: 89480 01/13/2018 ([id number]) 97894 EST. P ATIENT, LEVEL IV Diagnosis: Type 2 diabetes mellitus with hyperglycemia[ICD10: E11.65] Diagnosis: Vitamin D deficiency, unspecified[ICD10: E55.9] Diagnosis: Essential (primary) hypertension[ICD10: I10] Diagnosis: Abdominal distension (gaseous)[ICD10: R14.0] Diagnosis: Drug induced constipation[ICD10: K59.03] Karmen Ash MD, [facility] CPT-4: 68227 11/19/2017 66219 EST. PATIENT, LEVEL IV Diagnosis: Low back pain[ICD10: M54.5] Diagnosis: Chronic obstructive pulmonary disease, unspecified[ICD10: J44.9] Brunilda Ash MD, [facility] CPT-4: 27824 10/02/2017 ([id number]) 61117 EST. P ATIENT, LEVEL IV Diagnosis: Essential (primary) hypertension[ICD10: I10] Diagnosis: Type 2 diabetes mellitus with hyperglycemia[ICD10: E11.65] Diagnosis: Vitamin D deficiency, unspecified[ICD10: E55.9] Diagnosis: Mixed hyperlipidemia[ICD10: E78.2] Karmen Ash MD, [facility] CPT-4: 90478 07/23/2017 ([id number]) 62504 EST. P ATIENT, LEVEL IV Diagnosis: Essential (primary) hypertension[ICD10: I10] Diagnosis: Type 2 diabetes mellitus with hyperglycemia[ICD10: E11.65] Diagnosis: Chronic obstructive pulmonary disease, unspecified[ICD10: J44.9] Diagnosis: Nicotine dependence, unspecified, uncomplicated[ICD10: F17.200] Diagnosis: Encounter for immunization[ICD10: Z23] Karmen Ash MD, [facility] CPT-4: 83666 04/25/2017 ([id number]) 83402 EST. P ATIENT, LEVEL IV Diagnosis: Type 2 diabetes mellitus with hyperglycemia[ICD10: E11.65] Diagnosis: Essential (primary) hypertension[ICD10: I10] Diagnosis: Anemia, unspecified[ICD10: D64.9] Karmen Ash MD, [facility] CPT- 4: 10543 02/19/2017 ([id number]) 99981 EST. P ATIENT, LEVEL IV Diagnosis: Slow transit constipation[ICD10: K59.01] Diagnosis: Gastro-esophageal reflux disease without esophagitis[ICD10: K21.9] Diagnosis: Essential (primary) hypertension[ICD10: I10] Karmen Ash MD, [facility] CPT-4: 66350 01/21/2017 ([id number]) 39961 EST. P ATIENT, LEVEL IV Diagnosis: Type 2 diabetes mellitus with hyperglycemia[ICD10: E11.65] Diagnosis: Vitamin D deficiency, unspecified[ICD10: E55.9] Diagnosis: Essential (primary) hypertension[ICD10: I10] Diagnosis: Chronic obstructive pulmonary disease, unspecified[ICD10: J44.9] Karmen Ash MD, [facility] CPT-4: 49509 12/20/2016 ([id number]) 45552 EST. P ATIENT, LEVEL IV Diagnosis: Type 2 diabetes mellitus with hyperglycemia[ICD10: E11.65] Diagnosis: Essential (primary) hypertension[ICD10: I10] Diagnosis: Mixed hyperlipidemia[ICD10: E78.2] Diagnosis: Vitamin D deficiency, unspecified[ICD10: E55.9] Karmen Ash MD, [facility] CPT-4: 28467 08/23/2016 ([id number]) 57715 EST. P ATIENT, LEVEL IV Diagnosis: Type 2 diabetes mellitus with hyperglycemia[ICD10: E11.65] Diagnosis: Essential (primary) hypertension[ICD10: I10] Diagnosis: Chronic obstructive pulmonary disease, unspecified[ICD10: J44.9] Karmen Ash MD, [facility] CPT-4: 01162 05/22/2016 ([id number]) 72623 EST. P ATIENT, LEVEL III Diagnosis: Dysuria[ICD10: R30.0] Diagnosis: Essential (primary) hypertension[ICD10: I10] Karmen sAh MD, [facility] CPT-4: 40831 02/24/2016 ([id number]) 27846 EST. P ATIENT, LEVEL IV Diagnosis: Gastro-esophageal reflux disease without esophagitis[ICD10: K21.9] Diagnosis: Slow transit constipation[ICD10: K59.01] Diagnosis: Type 2 diabetes mellitus with hyperglycemia[ICD10: E11.65] Karmen Ash MD, [facility] CPT-4: 35767 01/27/2016 ([id number]) 85012 EST. P ATIENT, LEVEL IV Diagnosis: Essential (primary) hypertension[ICD10: I10] Diagnosis: Type 2 diabetes mellitus with hyperglycemia[ICD10: E11.65] Diagnosis: Vitamin D deficiency, unspecified[ICD10: E55.9] Diagnosis: Chronic obstructive pulmonary disease, unspecified[ICD10: J44.9] Diagnosis: Mixed hyperlipidemia[ICD10: E78.2] Diagnosis: Tobacco use[ICD10: Z72.0] Karmen Ash MD, [facility] CPT- 4: 26876 11/25/2015 ([id number]) 24716 EST. P ATIENT, LEVEL IV Diagnosis: Type 2 diabetes mellitus with hyperglycemia[ICD10: E11.65] Diagnosis: Essential (primary) hypertension[ICD10: I10] Diagnosis: Vitamin D deficiency, unspecified[ICD10: E55.9] Karmen Ash MD, [facility] CPT-4: 74499 07/28/2015 ([id number]) 50906 EST. P ATIENT, LEVEL III Diagnosis: Type 2 diabetes mellitus with hyperglycemia[ICD10: E11.65] Diagnosis: Essential (primary) hypertension[ICD10: I10] Violeta Ash MD, [facility] CPT-4: 55742 05/26/2015 ([id number]) 78543 EST. P ATIENT, LEVEL III Diagnosis: DIABETES TYPE II[ICD9: 250.00] Diagnosis: COPD (chronic obstructive pulmonary disease)[ICD9: 496] Diagnosis: ESSENTIAL HYPERTENSION[ICD9: 401.9] Diagnosis: Cough[ICD9: 786.2] Violeta Ash MD, [facility] CPT-4: 06743 05/06/2015 ([id number]) 64906 EST. P ATIENT, LEVEL III Diagnosis: COPD (chronic obstructive pulmonary disease)[ICD9: 496] Diagnosis: DIABETES TYPE II[ICD9: 250.00] Diagnosis: Muscle ache[ICD9: 729.1] Karmen Ash MD, [facility] CPT- 4: 58570 04/25/2015 ([id number]) 11168 EST. P ATIENT, LEVEL III Diagnosis: ACTINIC KERATOSIS[ICD9: 702.0] Diagnosis: COPD (chronic obstructive pulmonary disease)[ICD9: 496] Diagnosis: DIABETES TYPE II[ICD9: 250.00] Diagnosis: ACUTE URI[ICD9: 465.9] Violeta Ash MD, [facility] CPT-4: 15473 04/12/2015 ([id number]) 21091 EST. P ATIENT, LEVEL III Diagnosis: DIABETES TYPE II[ICD9: 250.00] Violeta Ash MD, [facility] CPT-4: 99564 03/24/2015 ([id number]) 50606 EST. P ATIENT, LEVEL IV Diagnosis: DIABETES TYPE II[ICD9: 250.00] Diagnosis: Hypoglycemia[ICD9: 251.2] Diagnosis: Skin texture changes[ICD9: 782.8] Violeta Ash MD, [facility] CPT-4: 10492 03/07/2015 ([id number]) 46945 EST. P ATIENT, LEVEL IV Diagnosis: COPD (chronic obstructive pulmonary disease)[ICD9: 496] Diagnosis: Fatigue[ICD9: 780.79] Diagnosis: Insulin dependent diabetes mellitus[ICD9: 250.00] Diagnosis: Unsteady gait[ICD9: 781.2] Maame Ash MD, [facility] CPT-4: 26833 02/17/2015 ([id number] 85571 EST. P ATIENT, LEVEL IV Diagnosis: BPPV (benign paroxysmal positional vertigo)[ICD9: 386.11] Diagnosis: Impacted cerumen[ICD9: 380.4] Diagnosis: ESSENTIAL HYPERTENSION[ICD9: 401.9] Diagnosis: Insulin dependent diabetes mellitus[ICD9: 250.00] Karmen Ash MD, [facility] CPT-4: 60216 12/23/2014 ([id number]) [facility] 4 Diagnosis: Insulin dependent diabetes mellitus[ICD9: 250.00] Diagnosis: BPPV (benign paroxysmal positional vertigo)[ICD9: 386.11] Diagnosis: COPD (chronic obstructive pulmonary disease)[ICD9: 496] Diagnosis: Tobacco abuse[ICD9: 305.1] Diagnosis: Osteoarthritis[ICD9: 715.90] [facility] CPT- 4: 94287 12/09/2014 Plan of Care Planned Activity Notes [...] instability- recommend patient use a walker 10/17/2018 Patient Education: Patient Medication Summary Completed [...] to medications. 09/02/2018 Appointment: Karmen Espinal WPtel: [facility] [phone] (15 min) Moderate 09/02/2018 Patient Education: Patient [...] care surrogate. 06/30/2018 Appointment: Karmen Espinal WPtel: [address] [place] [address] - Annual Wellness Visit 06/30/2018 Patient Education: [...] in pain. 06/06/2018 Appointment: Karmen Espinal WPtel: [facility] [address] (15 min) Moderate 06/06/2018 Patient Education: Patient [...] months 04/04/2018 Appointment: Karmen Espinal WPtel: [phone] [phone] [place] (15 min) Moderate 04/04/2018 Patient Education: Patient Medication Summary Completed 04/04/2018 Care Plan: Cbc With Differential Pending 04/04/2018 Care Plan: Testosterone repeat in 2 months Pending 04/04/2018 Appointment: Karmen Espinal WPtel: [phone] [phone] [place] (15 min) Moderate 03/25/2018 Visit Plan: Low back pain -history of kidney stone-UA negative today -increase fluids and call if pain does not resolve or if any worse. 03/07/2018 Appointment: EspinalKarmen WPtel: [phone] [facility] [phone] [place] (15 min) Moderate 03/07/2018 Patient Education: [...] 1 month 02/20/2018 Appointment: Karmen Espinal WPtel: [facility] [place] [address] (15 min) Moderate 02/20/2018 Patient Education: Patient Medication Summary Completed 02/20/2018 Visit Plan: COPD EXACERBATION - [employer] D is a chronic problem for this [...] acute changes. 01/30/2018 Appointment: Karmen Espinal WPtel: [facility] [address] (15 min) Moderate 01/30/2018 Patient Education: Patient Medication Summary Completed 01/30/2018 Appointment: Karmen Espinal WPtel: [facility] [place] [address] (15 min) Moderate 01/28/2018 Appointment: Injection 01/17/2018 Patient Education: Patient Medication Summary Completed 01/17/2018 Visit Plan: Cellulitis - start oral antibiotics as directed, return to clinic as previously directed, call for acute change in symptoms, worsening redness, warmth, discharge. 01/14/2018 Appointment: Karmen Espinal WPtel: [facility] [place] [address] (10 min) Simple 01/14/2018 Patient Education: Patient [...] less controlled. 01/13/2018 Appointment: Karmen Espinal WPtel: [phone] (15 min) Moderate 01/13/2018 Patient Education: Patient Medication Summary Completed 01/13/2018 [phone] Patient's informed. Referral info ned [...] change in blood pressure readings at home. Xvnswqnc-auikwj-yvrqg to see Dr Villatoro Constipation-start linzess daily 11/19/2017 Appointment: Karmen Espinal WPtel: [phone] (30 min) Complex 11/19/2017 Patient Education: Patient Medication Summary Completed 11/19/2017 Care Plan: Referral Order bloating, nausea SNOMED-CT : 733845923 Pending 11/19/2017 Visit Plan: Low back pain- [...] acute changes. 10/02/2017 Appointment: Brunilda Maravilla WPtel: [address] [place], [place] [phone] (15 min) [facility] 10/02/2017 Patient Education: Patient Medication Summary Completed [...] less controlled. 07/23/2017 Appointment: Karmen Espinal WPtel: [phone] [phone] (30 min) Complex 07/23/2017 Patient Education: [...] history 04/25/2017 Appointment: K[facility] Espinal WPtel: [phone] [phone] (30 min) Complex 04/25/2017 Patient Education: Patient [...] readings are starting to become less controlled. Eluafm-fliqbxd-xhtpo labs 02/19/2017 Appointment: Karmen Espinal WPtel: [facility] [phone] [place] (30 min) Complex 02/19/2017 Patient Education: Patient [...] 1 month 01/21/2017 Appointment: Karmen Espinal WPtel: [facility] [phone] [place] (30 min) Complex 01/21/2017 Patient Education: Patient Medication Summary Completed 01/21/2017 Patient Education: Smoking and Tobacco Addiction Completed 01/21/2017 Patient Education: Hypertension Completed 01/21/2017 Care Plan: Referral Order SNOMED-CT : [id number] Pending 01/21/2017 Visit Plan: Diabetes Mellitus - [...] acute changes. 12/20/2016 Appointment: Karmen Espinal WPtel: [phone] (30 min) Complex 12/20/2016 Patient Education: Patient Medication Summary Completed 12/20/2016 Patient Education: Smoking and Tobacco Addiction Completed 12/20/2016 Patient Education: Hypertension Completed 12/20/2016 Appointment: Karmen Espinal WPtel: [phone] [phone] (30 min) Complex 09/06/2016 Visit Plan: [...] level 08/23/2016 Appointment: Karmen Espinal WPtel: [phone] [phone] (30 min) Complex 08/23/2016 Patient Education: [...] acute changes. 05/22/2016 Appointment: Karmen Espinal WPtel: [facility] [phone] (30 min) Complex 05/22/2016 Patient Education: Patient Medication Summary Completed 05/22/2016 Patient Education: Smoking and Tobacco Addiction Completed 05/22/2016 Care Plan: Cbc With Differential Ordered 05/22/2016 Care Plan: %Hba1C LOIN C : 84005-6 Ordered 05/22/2016 Care Plan: Tsh Ordered 05/22/2016 [...] update 02/24/2016 Appointment: Karmen Espinal WPtel: [phone] [place] (30 min) Complex 02/24/2016 Patient [...] not improved on this regimen. 01/27/2016 Appointment: Karemn Espinal WPtel: [address] [place], [place] [phone] [place] (30 min) Complex 01/27/2016 Patient Education: [...] Completed 05/06/2015 Visit Plan: COPD EXACERBATION - [employer] D is a chronic problem for this [...] POTENTIAL SIDE EFFECTS AND WORSENING OF SYMPTOMS. Kafsjkbc-jhkhcdss-KHLL SIMVASTATIN X 2 WEEKS AND CALL WITH [...] Care Plan: COMPLETE CBC AUTOMATED LOINC : 22541-2 Ordered 03/24/2015 Visit Plan: Diabetes Mellitus - [...] removal. 03/07/2015 Appointment: Violeta Ash WPtel: [address] [place], [place] [phone] (15 min) Moderate 03/07/2015 Patient Education: Patient [...] Care Plan: COMPLETE CBC AUTOMATED LOINC : 84911-6 Ordered 12/23/2014 Visit Plan: BPPV - Benign [...] next appt 12/09/2014 Appointment: Karmen Espinal WPtel: [address] [place], [place] [phone] [place] ([place]) New Patient 12/09/2014 Patient Education: Patient Medication Summary Completed 12/09/2014 Patient Education: .Amazing charts Parox ysmal positional vertigo Completed 12/09/2014 Patient Education: Smoking and Tobacco Addiction Completed 12/09/2014 [phone] [facility] [place] Referral Appointment Requested Referral: Luis [...] readings are starting to become less controlled. Wtzvdw-rxfbdla-vsocr labs . Cellulitis - start oral antibiotics [...] change in blood pressure readings at home. Ijcjvvka-ieodld-lenvu to see Dr Villatoro Constipation-start linzess daily [...] POTENTIAL SIDE EFFECTS AND WORSENING OF SYMPTOMS. Wnqoqfmx-lsgkxzsg-SGNR SIMVASTATIN X 2 WEEKS AND CALL WITH [...]
--- OUTSIDE RECORDS SUMMARY | 2020-03-29 09:01 | XMS REPORT | CCD ---
Author Author Dick Espinal Organization [facility] Address [address] [place] [address] Phone Care Team Providers Care Sizer Machine Name Role Phone PP Unavailable CCM Unavailable Summary Purpose Interface Exchange Insurance Providers Payer name Policy type / Coverage type Covered democrat ID Effective Begin Date Effective End Date WPS Medicare Part B Medicare Part B [id number] Unknown Unknown [employer] Medicar e Part B [id number] Unknown Unkn own Family history Father Diagnosis Age At Onset Cancer Unknown Mother Diagnosis Age At Onset Cancer Unknown Social History Social History Element Codes Description Effective Dates Marital status Unknown M arried 12/09/2014 Employment Unknown Retir ed 12/09/[address]: 67670948 Currently smokes tobacco 12/09/2014 Number of years using tobacco Unknown > 50 12/09/2014 Number of cigarettes/day Unknown 30 (Pack and a half) 12/09/[address]: 962189832 Never drinks alcohol 12/09/2014 Allergies, Adverse Reactions, [...] ICD-9: 401.9 ICD-10: I10 Active 08/22/2016 Unknown Mixed hyperlipidemia ICD-9: 272.2 [...] ICD-9: 783.21 ICD-10: R63.4 Active 02/20/2018 Unknown Low back pain ICD-9: 724.2 ICD-10: M54.5 Active 10/02/2017 Unknown Dysuria ICD-9: 788.1 ICD-10: R30.0 Active [...] hypertension ICD-9: 401.9 ICD-10: I10 08/22/2016 Active Mixed hyperlipidemia ICD-9: 272.2 ICD-10: [...] loss ICD-9: 783.21 ICD-10: R63.4 02/20/2018 Active Low back pain ICD-9: 724.2 ICD-10: M54.5 10/02/2017 Active Dysuria ICD-9: 788.1 ICD-10: R30.0 02/23/2016 [...] Date Stop Date Sta tus Fill Instructions metformin 500 mg tablet RxNorm: 183747 Tablet(s) TAKE 1 TABLET BY MOUTH DAILY 10/15/2018 10/09/2019 Ac tive lisinopril 10 mg tablet RxNorm: 361199 TAKE 1 TABLET BY MOUTH TWO TIMES DAILY 10/15/2018 10/09/2019 Ac tive - First Attempt Ref: [id number] testosterone cypiona te 200 mg/mL intramuscular oil RxNorm: 9768380 Milliliter(s) IM 10/14/2018 10/14/2018 In active Xanax 0.5 mg tablet RxNorm: 950435 1 Tablet(s) PO TID 10/03/2018 11/30/2018 Active testosterone cypiona te 200 mg/mL intramuscular oil RxNorm: 3778525 1/2 Milliliter(s) IM weekly 10/03/2018 01/30/2019 Active testosterone cypiona te 200 mg/mL intramuscular oil RxNorm: 5995265 Milliliter(s) IM 10/03/2018 10/03/2018 In active testosterone cypiona te 200 mg/mL intramuscular oil RxNorm: 0221477 Milliliter(s) IM 09/23/2018 09/23/2018 In active hydrocodone 5 mg-linh taminophen 325 mg tablet RxNorm: 746721 1 Tablet(s) PO Q6-8H as needed 09/22/2018 10/16/2018 Active testosterone cypiona te 200 mg/mL intramuscular oil RxNorm: 2352461 1/2 Milliliter(s) IM 09/02/2018 09/02/2018 Inactive testosterone enantha te 200 mg/mL intramuscular oil RxNorm: 974073 Milliliter(s) IM 08/21/2018 08/21/2018 In active hydrocodone 5 mg-linh taminophen 325 mg tablet RxNorm: 729333 1 Tablet(s) PO Q6-8H as needed 08/21/2018 09/14/2018 Inactive testosterone cypiona te 200 mg/mL intramuscular oil RxNorm: 6092540 Milliliter(s) IM 08/08/2018 08/08/2018 In active testosterone cypiona te 200 mg/mL intramuscular oil RxNorm: 8598532 1/2 Milliliter(s) IM 07/28/2018 07/28/2018 Inactive hydrocodone 5 mg-linh taminophen 325 mg tablet RxNorm: 435855 1 Tablet(s) PO Q6-8H as needed 07/21/2018 08/14/2018 Inactive testosterone cypiona te 200 mg/mL intramuscular oil RxNorm: 669572 Milliliter(s) IM 07/16/2018 07/16/2018 In active testosterone cypiona te 200 mg/mL intramuscular oil RxNorm: 110226 Milliliter(s) IM 07/02/2018 07/02/2018 In active Xanax 0.5 mg tablet RxNorm: 052033 1 Tablet(s) PO TID 06/27/2018 08/24/2018 Inactive testosterone cypiona te 200 mg/mL intramuscular oil RxNorm: 221427 Milliliter(s) IM 06/24/2018 06/24/2018 In active hydrocodone 5 mg-linh taminophen 325 mg tablet RxNorm: 443126 1 Tablet(s) PO Q6-8H as needed 06/23/2018 07/17/2018 Inactive testosterone cypiona te 200 mg/mL intramuscular oil RxNorm: 037649 Milliliter(s) IM 06/13/2018 06/13/2018 In active testosterone cypiona te 200 mg/mL intramuscular oil RxNorm: 381932 Milliliter(s) IM 06/05/2018 06/05/2018 In active testosterone cypiona te 200 mg/mL intramuscular oil RxNorm: 5167754 1/2 Milliliter(s) IM weekly 05/30/2018 09/26/2018 Inactive testosterone cypiona te 200 mg/mL intramuscular oil RxNorm: 027893 Milliliter(s) IM 05/30/2018 05/30/2018 In active testosterone cypiona te 200 mg/mL intramuscular oil RxNorm: 934127 Milliliter(s) IM 05/22/2018 05/22/2018 In active hydrocodone 5 mg-linh taminophen 325 mg tablet RxNorm: 900743 1 Tablet(s) PO Q6-8H as needed 05/20/2018 06/13/2018 Inactive testosterone cypiona te 200 mg/mL intramuscular oil RxNorm: 589649 1/2 Milliliter(s) IM 05/12/2018 05/12/2018 Inactive testosterone cypiona te 200 mg/mL intramuscular oil RxNorm: 666322 Milliliter(s) IM 05/02/2018 05/02/2018 In active testosterone cypiona te 200 mg/mL intramuscular oil RxNorm: 123909 1/2 Milliliter(s) IM weekly 04/24/2018 05/29/2018 Inactive testosterone cypiona te 200 mg/mL intramuscular oil RxNorm: 603865 0.5 Milliliter(s) IM 04/24/2018 04/24/2018 Inactive hydrocodone 5 mg-linh taminophen 325 mg tablet RxNorm: 506222 1 Tablet(s) PO Q6-8H as needed 04/22/2018 05/16/2018 Inactive testosterone cypiona te 200 mg/mL intramuscular oil RxNorm: 613121 1/2 Milliliter(s) IM 04/17/2018 04/17/2018 Inactive testosterone cypiona te 200 mg/mL intramuscular oil RxNorm: 828162 1/2 Milliliter(s) IM weekly 04/16/2018 04/23/2018 Inactive Jardiance 10 mg tablet RxNorm: 2538695 1 Tablet(s) PO daily 04/04/2018 12/29/2018 Active Protonix 40 mg table t,delayed release RxNorm: 827463 1 Tablet(s) PO daily TAKE 1 TABLET BY MOUTH DAILY 04/04/2018 03/29/2019 Active - Ref: [id number] testosterone cypiona te 200 mg/mL intramuscular oil RxNorm: 062613 1 Milliliter(s) IM monthly 04/04/2018 04/15/2018 Inactive hydrocodone 5 mg-linh taminophen 325 mg tablet RxNorm: 996580 1 Tablet(s) PO Q6-8H as needed 03/19/2018 04/12/2018 Inactive Flomax 0.4 mg capsule RxNorm: 862162 1 Capsule(s) PO daily 03/10/2018 03/04/2019 Active Urecholine 25 mg tablet RxNorm: 781009 1 Tablet(s) PO BID 03/10/2018 07/07/2018 Inactive ketorolac 60 mg/2 mL intramuscular solution RxNorm: 6325402 Milliliter(s) IM 03/07/2018 03/07/2018 In active metformin 500 mg tablet RxNorm: 542870 Tablet(s) TAKE 1 TABLET BY MOUTH DAILY 02/20/2018 02/13/2019 Ac tive 1 q am and 1/2 tab q pm hydrocodone 5 mg-linh taminophen 325 mg tablet RxNorm: 897396 1 Tablet(s) PO Q6-8H as needed 02/20/2018 03/16/2018 Inactive Kenalog 40 mg/mL bartolome pension for injection RxNorm: 9645956 1.5 Milliliter(s) In j 01/30/2018 01/30/2018 In active hydrocodone 5 mg-linh taminophen 325 mg tablet RxNorm: 361709 1 Tablet(s) PO Q6-8H as needed 01/23/2018 02/16/2018 Inactive Urecholine 25 mg tablet RxNorm: 708304 1 Tablet(s) PO BID 01/22/2018 03/09/2018 Inactive Flomax 0.4 mg capsule RxNorm: 997915 1 Capsule(s) PO daily 01/22/2018 03/09/2018 Inactive Flomax 0.4 mg capsule RxNorm: 631673 1 Capsule(s) PO daily 01/22/2018 01/21/2018 Inactive Urecholine 25 mg tablet RxNorm: 054515 1 Tablet(s) PO BID 01/22/2018 01/21/2018 Inactive testosterone cypiona te 200 mg/mL intramuscular oil RxNorm: 842293 Milliliter(s) IM 01/17/2018 01/17/2018 In active testosterone cypiona te 200 mg/mL intramuscular oil RxNorm: 549750 1 Milliliter(s) IM monthly 01/17/2018 04/03/2018 Inactive doxycycline hyclate 100 mg tablet RxNorm: 366556 1 Tablet(s) PO BID 01/14/2018 01/23/2018 Inactive lisinopril 10 mg tablet RxNorm: 941106 TAKE 1 TABLET BY MOUTH TWO TIMES DAILY 01/14/2018 10/14/2018 In active - First Attempt Ref: [id number] Xanax 0.5 mg tablet RxNorm: 287092 1 Tablet(s) PO TID 01/08/2018 04/06/2018 Inactive nystatin 100,000 uni t/mL oral suspension RxNorm: 127569 4 Milliliter(s) PO QI D Swish and swallow 01/08/2018 01/07/2018 Inactive nystatin 100,000 uni t/mL oral suspension RxNorm: 139106 4 Milliliter(s) PO QI D Swish and swallow 01/08/2018 01/12/2018 Inactive simvastatin 40 mg ta blet RxNorm: 405258 TAKE 1 TABLET BY MOUT H DAILY AT BEDTIME 12/30/2017 12/24/2018 Ac tive - First Attempt Ref: [id number] metformin 500 mg tablet RxNorm: 703318 TAKE 1 TABLET BY MOUTH DAILY 12/30/2017 02/19/2018 Inactive - First Attempt Ref: [id number] hydrocodone 5 mg-linh taminophen 325 mg tablet RxNorm: 016233 1 Tablet(s) PO Q6-8H as needed 12/25/2017 01/18/2018 Inactive Protonix 40 mg table t,delayed release RxNorm: 208304 Tablet(s) TAKE 1 TABL ET BY MOUTH DAILY 11/20/2017 04/03/2018 Inactive - Ref: [id number] Linzess 72 mcg capsule RxNorm: 6623227 1 Capsule(s) PO daily 11/19/2017 No Stop Date Active hydrocodone 5 mg-linh taminophen 325 mg tablet RxNorm: 921070 1 Tablet(s) PO Q6-8H as needed 11/19/2017 12/13/2017 Inactive hydrocodone 5 mg-linh taminophen 325 mg tablet RxNorm: 397198 1 Tablet(s) PO Q6-8H as needed 10/28/2017 11/18/2017 Inactive Xanax 0.5 mg tablet RxNorm: 490334 1 Tablet(s) PO TID 10/25/2017 12/22/2017 Inactive Xanax 0.5 mg tablet RxNorm: 392983 TAKE ONE TABLET BY MOUTH THREE TIMES A D AY 10/24/2017 12/22/2017 In active hydrocodone 5 mg-linh taminophen 325 mg tablet RxNorm: 188817 1 Tablet(s) PO Q6-8H as needed 09/30/2017 10/24/2017 Inactive Protonix 40 mg table t,delayed release RxNorm: 442910 TAKE 1 TABLET BY MOUT H DAILY 09/16/2017 11/19/2017 In active - Ref: [id number] Yovana Perkins 300 unit/mL (1.5 mL) subcutaneous insulin pen RxNorm: 5985254 35 Unit(s) SQ QHS 08/30/2017 No Stop Date Active dosage increase hydrocodone 5 mg-linh taminophen 325 mg tablet RxNorm: 807096 1 Tablet(s) PO Q6-8H as needed 08/28/2017 09/29/2017 Inactive hydrocodone 5 mg-linh taminophen 325 mg tablet RxNorm: 790827 1 Tablet(s) PO Q6-8H as needed 07/23/2017 08/24/2017 Inactive lisinopril 10 mg tablet RxNorm: 997918 1 Tablet(s) PO BID Take 1 tablet by mout h daily 07/23/2017 01/13/2018 Inactive hydrocodone 5 mg-linh taminophen 325 mg tablet RxNorm: 935165 1 Tablet(s) PO Q6-8H as needed 06/27/2017 07/22/2017 Inactive Xanax 0.5 mg tablet RxNorm: 409918 1 Tablet(s) PO TID 06/18/2017 10/25/2017 Inactive hydrocodone 5 mg-linh taminophen 325 mg tablet RxNorm: 442398 1 Tablet(s) PO Q6-8H as needed 05/27/2017 06/26/2017 Inactive Levaquin 500 mg tablet RxNorm: 912219 1 Tablet(s) PO daily 05/24/2017 05/23/2017 Inactive Levaquin 500 mg tablet RxNorm: 139414 1 Tablet(s) PO daily 05/24/2017 05/30/2017 Inactive Protonix 40 mg table t,delayed release RxNorm: 789429 Take 1 tablet by mout h daily 04/29/2017 09/15/2017 In active - Ref: [id number] hydrocodone 5 mg-linh taminophen 325 mg tablet RxNorm: 585349 1 Tablet(s) PO Q6-8H as needed 04/25/2017 05/26/2017 Inactive metformin 500 mg tablet RxNorm: 770821 Take 1 tablet by mouth daily 04/08/2017 12/29/2017 Inactive - First Attempt Ref: [id number] hydrocodone 5 mg-linh taminophen 325 mg tablet RxNorm: 271277 1 Tablet(s) PO Q6-8H as needed 03/27/2017 04/24/2017 Inactive hydrocodone 5 mg-linh taminophen 325 mg tablet RxNorm: 920375 1 Tablet(s) PO Q6-8H as needed 02/25/2017 03/26/2017 Inactive Protonix 40 mg table t,delayed release RxNorm: 310373 Tablet(s) Take 1 tabl et by mouth BID 02/25/2017 04/28/2017 Inactive Protonix 40 mg table t,delayed release RxNorm: 085623 Tablet(s) Take 1 tabl et by mouth BID 02/19/2017 02/18/2017 Inactive Protonix 40 mg table t,delayed release RxNorm: 365221 Tablet(s) Take 1 tabl et by mouth BID 02/19/2017 02/24/2017 Inactive lisinopril 10 mg tablet RxNorm: 490039 Take 1 tablet by mouth daily 01/29/2017 07/22/2017 Inactive - First Attempt Ref: [id number] hydrocodone 5 mg-linh taminophen 325 mg tablet RxNorm: 647144 1 Tablet(s) PO Q6-8H as needed 01/25/2017 02/24/2017 Inactive simvastatin 40 mg ta blet RxNorm: 538837 Tablet(s) Take 1 tabl et by mouth daily at bedtime 01/03/2017 12/28/2017 Inactive lisinopril 10 mg tablet RxNorm: 369586 Tablet(s) Take 1 tablet by mouth daily 01/03/2017 01/28/2017 In active Protonix 40 mg table t,delayed release RxNorm: 421867 Tablet(s) Take 1 tabl et by mouth daily 12/28/2016 02/18/2017 Inactive hydrocodone 5 mg-linh taminophen 325 mg tablet RxNorm: 050114 1 Tablet(s) PO Q6-8H as needed 12/26/2016 01/24/2017 Inactive Xanax 0.5 mg tablet RxNorm: 653399 1 Tablet(s) PO TID 12/12/2016 03/11/2017 Inactive simvastatin 40 mg ta blet RxNorm: 600770 Tablet(s) Take 1 tabl et by mouth daily at bedtime 11/30/2016 01/02/2017 Inactive simvastatin 40 mg ta blet RxNorm: 668485 Take 1 tablet by mout h daily at bedtime 11/29/2016 11/29/2016 In active - First Attempt Ref: [id number] Protonix 40 mg table t,delayed release RxNorm: 288220 Take 1 tablet by mout h daily 11/27/2016 12/27/2016 In active - First Attempt Ref: [id number] hydrocodone 5 mg-linh taminophen 325 mg tablet RxNorm: 536736 1 Tablet(s) PO Q6-8H as needed 11/26/2016 12/25/2016 Inactive hydrocodone 5 mg-linh taminophen 325 mg tablet RxNorm: 559122 1 Tablet(s) PO Q8 as needed 10/24/2016 11/25/2016 Inactive Xanax 0.5 mg tablet RxNorm: 052445 1 Tablet(s) PO TID 10/09/2016 12/25/2016 Inactive hydrocodone 5 mg-linh taminophen 325 mg tablet RxNorm: 776160 1 Tablet(s) PO Q8 as needed 09/27/2016 10/23/2016 Inactive lisinopril 10 mg tablet RxNorm: 993393 Take 1 tablet by mouth daily 09/25/2016 01/02/2017 Inactive - First Attempt Ref: [id number] Vitamin D2 50,000 un it capsule RxNorm: 113980 1 Capsule(s) PO QW 09/06/2016 No Stop Date Active hydrocodone 5 mg-linh taminophen 325 mg tablet RxNorm: 219310 1 Tablet(s) PO Q8 as needed 08/28/2016 09/26/2016 Inactive Toujeo SoloStar 300 unit/mL (1.5 mL) subcutaneous insulin pen RxNorm: 0803457 25 Unit(s) SQ QHS 08/23/2016 08/29/2017 Inactive dosage increase hydrocodone 5 mg-linh taminophen 325 mg tablet RxNorm: 630812 1 Tablet(s) PO Q8 as needed 07/26/2016 08/27/2016 Inactive Protonix 40 mg table t,delayed release RxNorm: 401881 Take 1 tablet by mout h daily 07/24/2016 11/26/2016 In active - First Attempt Ref: [id number] hydrocodone 5 mg-linh taminophen 325 mg tablet RxNorm: 669590 1 Tablet(s) PO Q8 as needed 06/19/2016 07/21/2016 Inactive Toujeo SoloStar 300 unit/mL (1.5 mL) subcutaneous insulin pen RxNorm: 1994848 32 Unit(s) SQ QHS 05/30/2016 08/22/2016 Inactive dosage increase hydrocodone 5 mg-linh taminophen 325 mg tablet RxNorm: 372412 1 Tablet(s) PO Q8 as needed 05/22/2016 06/18/2016 Inactive hydrocodone 5 mg-linh taminophen 325 mg tablet RxNorm: 965036 1 Tablet(s) PO Q8 as needed 04/18/2016 05/17/2016 Inactive Protonix 40 mg table t,delayed release RxNorm: 627461 Take 1 tablet by mout h daily 04/05/2016 07/03/2016 In active - Ref: [id number] metformin 500 mg tablet RxNorm: 805444 Take 1 tablet by mouth daily 04/04/2016 07/02/2016 Inactive - Ref: [id number] Xanax 0.5 mg tablet RxNorm: 342554 1 Tablet(s) PO TID 03/30/2016 09/25/2016 Inactive Xanax 0.5 mg tablet RxNorm: 935718 1 Tablet(s) PO TID 03/23/2016 12/25/2016 Inactive hydrocodone 5 mg-linh taminophen 325 mg tablet RxNorm: 015125 1 Tablet(s) PO Q8 as needed 03/06/2016 04/04/2016 Inactive Cipro 500 mg tablet RxNorm: 424681 1 Tablet(s) PO BID 02/24/2016 03/04/2016 Inactive Miralax 17 gram oral powder packet RxNorm: 175862 1 packet PO every oth er day 01/27/2016 No Stop Date Active hydrocodone 5 mg-linh taminophen 325 mg tablet RxNorm: 689947 1 Tablet(s) PO Q8 as needed 01/27/2016 02/25/2016 Inactive lisinopril 10 mg tablet RxNorm: 707199 1 Tablet(s) PO daily 01/12/2016 09/24/2016 Inactive simvastatin 40 mg ta blet RxNorm: 602783 1 Tablet(s) PO QHS 01/12/2016 11/28/2016 Inactive simvastatin 40 mg ta blet RxNorm: 449154 1 Tablet(s) PO QHS 01/11/2016 01/11/2016 Inactive lisinopril 10 mg tablet RxNorm: 405253 1 Tablet(s) PO daily 01/06/2016 01/11/2016 Inactive simvastatin 40 mg ta blet RxNorm: 247017 1 Tablet(s) PO daily 12/28/2015 01/10/2016 Inactive hydrocodone 5 mg-linh taminophen 325 mg tablet RxNorm: 367978 1 Tablet(s) PO Q8 as needed 12/27/2015 01/26/2016 Inactive Xanax 0.5 mg tablet RxNorm: 041527 1 Tablet(s) PO TID 11/30/2015 03/29/2016 Inactive meclizine 25 mg tablet RxNorm: 130952 1 Tablet(s) PO Q6 PRN TAKE ONE TABLET BY MOUTH EVERY 6 HOURS NEEDED 11/25/2015 02/22/2016 Inactive Toujeo SoloStar 300 unit/mL (1.5 mL) subcutaneous insulin pen RxNorm: 1067536 30 Unit(s) SQ QHS 11/25/2015 05/29/2016 Inactive dosage increase omeprazole 20 mg cap jacquelyn,delayed release RxNorm: 484436 1 Capsule(s) PO daily 10/06/2015 01/26/2016 In active Toujeo SoloStar 300 unit/mL (1.5 mL) subcutaneous insulin pen RxNorm: 5890102 35 Unit(s) SQ QHS 08/02/2015 11/24/2015 Inactive dosage increase Vitamin D2 50,000 un it capsule RxNorm: 432505 1 Capsule(s) PO QW 08/02/2015 09/05/2016 Inactive hydrocodone 5 mg-linh taminophen 325 mg tablet RxNorm: 742804 1 Tablet(s) PO Q8 as needed 07/11/2015 12/26/2015 Inactive Xanax 0.5 mg tablet RxNorm: 251364 1 Tablet(s) PO TID 06/30/2015 06/29/2015 Inactive Xanax 0.5 mg tablet RxNorm: 419804 1 Tablet(s) PO TID 06/30/2015 12/25/2015 Inactive hydrocodone 5 mg-linh taminophen 325 mg tablet RxNorm: 988482 1 Tablet(s) PO Q8 as needed 05/06/2015 07/10/2015 Inactive Symbicort 160 mcg-4. 5 mcg/actuation HFA aerosol inhaler RxNorm: 4433110 INH 04/25/2015 No Stop Date Active Levemir FlexTouch 10 0 unit/mL (3 mL) subcutaneous insulin pen RxNorm: 693725 30 Unit(s) SQ QHS 04/25/2015 11/24/2015 Inactive prednisone 20 mg tablet RxNorm: 835475 1 Tablet(s) PO BID 04/25/2015 04/29/2015 Inactive metformin 500 mg tablet RxNorm: 967785 1 Tablet(s) PO daily 04/25/2015 04/03/2016 Inactive amoxicillin 500 mg c apsule RxNorm: 058012 1 Capsule(s) PO TID 04/14/2015 04/13/2015 Inactive amoxicillin 500 mg c apsule RxNorm: 605597 1 Capsule(s) PO TID a nd recommend probiotic tid (otc) 04/14/2015 04/20/2015 Inactive Kenalog 40 mg/mL bartolome pension for injection RxNorm: 6622901 Milliliter(s) Inj 04/12/2015 04/12/2015 In active hydrocodone 5 mg-linh taminophen 325 mg tablet RxNorm: 435558 1 Tablet(s) PO Q8 as needed 03/30/2015 05/05/2015 Inactive Lantus 100 unit/mL s ubcutaneous solution RxNorm: 826902 25 Unit(s) SQ QPM 03/24/2015 04/25/2015 In active meclizine 25 mg tablet RxNorm: 755576 Tablet(s) TAKE ONE TABLET BY MOUTH EVERY 6 HOURS NEEDED 03/08/2015 04/06/2015 Inactive meclizine 25 mg tablet RxNorm: 564666 TAKE ONE TABLET BY MOUTH EVERY 6 HOURS A S NEEDED 02/25/2015 03/03/2015 Inactive Lantus 100 unit/mL s ubcutaneous solution RxNorm: 295632 20 Unit(s) SQ QPM 02/23/2015 03/23/2015 In active Lantus 100 unit/mL s ubcutaneous solution RxNorm: 682449 25 Unit(s) SQ QPM 02/23/2015 02/22/2015 In active hydrocodone 5 mg-linh taminophen 325 mg tablet RxNorm: 763188 1 Tablet(s) PO Q8 as needed 02/17/2015 03/29/2015 Inactive Xanax 0.5 mg tablet RxNorm: 511685 1 Tablet(s) PO TID 02/03/2015 06/29/2015 Inactive Lantus 100 unit/mL s ubcutaneous solution RxNorm: 084692 20 Unit(s) SQ QPM 12/29/2014 02/22/2015 In active Phenergan 12.5 mg re ctal suppository RxNorm: 465994 1 Suppository RTL Q6 PRN 12/23/2014 No Stop Date Active nausea Kenalog 40 mg/mL bartolome pension for injection RxNorm: 7771189 Milliliter(s) Inj 12/23/2014 12/23/2014 In active prednisone 20 mg tablet RxNorm: 609106 2 Tablet(s) PO daily 12/13/2014 12/17/2014 Inactive prednisone 20 mg tablet RxNorm: 530900 2 Tablet(s) PO daily 12/13/2014 12/12/2014 Inactive meclizine 25 mg tablet RxNorm: 207505 1 Tablet(s) PO Q6 PRN 12/09/2014 02/24/2015 Inactive hydrocodone 5 mg-linh taminophen 325 mg tablet RxNorm: 874796 1 Tablet(s) PO Q8 as needed 12/09/2014 02/16/2015 Inactive Vitamin B-12 1,000 m cg/mL oral drops RxNorm: 7019694 1 Milliliter(s) PO d aily No Start Date Active Alphagan P 0.1 % eye drops RxNorm: 203567 1 Drop(s) OPH BID No Start Date Active aspirin 325 mg table t,delayed release RxNorm: 755866 1 Tablet(s) PO daily No Start Date Active Tricor 145 mg tablet RxNorm: 972806 1 Tablet(s) PO daily No Start Date Active vitamin [id number] B1 oral liquid RxNorm: 1,000 Microgram(s) PO daily No Start Date Active atenolol 50 mg tablet RxNorm: 867809 1 Tablet(s) PO daily No Start Date Active Protonix 40 mg table t,delayed release RxNorm: 858823 1 Tablet(s) PO daily No Start Date 04/04/2016 Inactive glipizide 10 mg tablet RxNorm: 498848 1 Tablet(s) PO BID No Start Date 03/22/2015 Inactive Lantus 100 unit/mL s ubcutaneous solution RxNorm: 551172 15 Unit(s) SQ QPM No Start Date 12/28/2014 Inactive lisinopril 10 mg tablet RxNorm: 753241 1 Tablet(s) PO daily No Start Date 01/05/2016 Inactive Vitamin D2 50,000 un it capsule RxNorm: 946369 1 Capsule(s) PO QW No Start Date 08/01/2015 Inactive Toujeo SoloStar 300 unit/mL (1.5 mL) subcutaneous insulin pen RxNorm: 1866010 30 Unit(s) SQ QHS No Start Date 08/01/2015 Inactive simvastatin 40 mg ta blet RxNorm: 572202 1 Tablet(s) PO daily No Start Date 12/27/2015 Inactive testosterone cypiona te 200 mg/mL intramuscular oil RxNorm: 262390 1 Milliliter(s) IM monthly No Start Date 01/16/2018 Inactive hydrocodone 5 mg-linh taminophen 325 mg tablet RxNorm: 078161 1 Tablet(s) PO Q8 as needed No Start Date 12/08/2014 Inactive metformin 500 mg tablet RxNorm: 264078 1 Tablet(s) PO daily No Start Date 04/24/2015 Inactive omeprazole 20 mg cap jacquelyn,delayed release RxNorm: 791691 1 Capsule(s) PO daily No Start Date 10/05/2015 Inactive Flomax 0.4 mg capsule RxNorm: 377714 1 Capsule(s) PO daily No Start Date 03/23/2015 Inactive Medication Administered Medication Codes Instruc tions Start Date Status testosterone cypionate 200 mg/mL intramuscular oil RxNorm: 5020443 Milliliter 10/14/2018 No longer Active testosterone cypionate 200 mg/mL intramuscular oil RxNorm: 4074483 Milliliter 10/03/2018 No longer Active testosterone cypionate 200 mg/mL intramuscular oil RxNorm: 2127708 Milliliter 09/23/2018 No longer Active testosterone cypionate 200 mg/mL intramuscular oil RxNorm: 1186629 1/2Milliliter 09/02/2018 No longer Active testosterone enanthate 200 mg/mL intramuscular oil RxNorm: 681436 Milliliter 08/21/2018 No longer Active testosterone cypionate 200 mg/mL intramuscular oil RxNorm: 8821279 Milliliter 08/08/2018 No longer Active testosterone cypionate 200 mg/mL intramuscular oil RxNorm: 6583610 1/2Milliliter 07/28/2018 No longer Active testosterone cypionate 200 mg/mL intramuscular oil RxNorm: 610259 Milliliter 07/16/2018 No longer Active testosterone cypionate 200 mg/mL intramuscular oil RxNorm: 750968 Milliliter 07/02/2018 No longer Active testosterone cypionate 200 mg/mL intramuscular oil RxNorm: 794897 Milliliter 06/24/2018 No longer Active testosterone cypionate 200 mg/mL intramuscular oil RxNorm: 897859 Milliliter 06/13/2018 No longer Active testosterone cypionate 200 mg/mL intramuscular oil RxNorm: 629406 Milliliter 06/05/2018 No longer Active testosterone cypionate 200 mg/mL intramuscular oil RxNorm: 174666 Milliliter 05/30/2018 No longer Active testosterone cypionate 200 mg/mL intramuscular oil RxNorm: 030792 Milliliter 05/22/2018 No longer Active testosterone cypionate 200 mg/mL intramuscular oil RxNorm: 892116 1/2Milliliter 05/12/2018 No longer Active testosterone cypionate 200 mg/mL intramuscular oil RxNorm: 874543 Milliliter 05/02/2018 No longer Active testosterone cypionate 200 mg/mL intramuscular oil RxNorm: 525790 0.5Milliliter 04/24/2018 No longer Active testosterone cypionate 200 mg/mL intramuscular oil RxNorm: 769257 1/2Milliliter 04/17/2018 No longer Active ketorolac 60 mg/2 mL intramuscular solution RxNorm: 8358655 Milliliter 03/07/2018 No longer Active Kenalog 40 mg/mL suspension for injection RxNorm: 8371104 1.5Milliliter 01/30/2018 No longer Active testosterone cypionate 200 mg/mL intramuscular oil RxNorm: 928100 Milliliter 01/17/2018 No longer Active Kenalog 40 mg/mL suspension for injection RxNorm: 6678555 Milliliter 04/12/2015 No longer Active Kenalog 40 mg/mL suspension for injection RxNorm: 3898725 Milliliter 12/23/2014 No longer Active Immunizations Vaccine [...] 06/06/2018 Dysuria ICD-10: R30.0 ICD-9: 788.1 03/07/2018 Low back pain ICD-10: M54.5 ICD-9: 724.2 03/07/2018 Abnormal weight loss ICD-10: R63.4 ICD-9: [...] For Visit Effective Dates Notes diabetes mellitus 09/02/2018 Annual Medicare Wellness Exam [...] Code Item Item Code Result Date Testosterone [id number] Testo 669.0 ng/dL 09/08/2018 %Hba1C Hty018 % HbA1c 94411-7 7.4 % 09/08/2018 %Hba1C Cko166 Gluc Ave 166 mg/dL 09/08/2018 Lipid Ord30 CHOL 114 mg/dL 09/08/2018 Lipid Ord30 HDL 28.0 mg/dl 09/08/2018 Lipid Ord30 TRIG 154 mg/dL 09/08/2018 Lipid Ord30 LDL 55 mg/dL 09/08/2018 Lipid Ord30 C/HDL 4.1 Ratio 09/08/2018 Comp Metabolic Wfh575 NA 137 mEq/L 09/08/2018 Comp Metabolic Dan751 K 4.3 mEq/L 09/08/2018 Comp Metabolic Bhy654 CL 100 mEq/L 09/08/2018 Comp Metabolic Jae327 CO2 27.0 mEq/L 09/08/2018 Comp Metabolic Joe740 AN ION GAP 14 09/08/2018 Comp Metabolic Keb054 GL UCOSE 85 mg/dL 09/08/2018 Comp Metabolic For529 Cr eat 1.1 mg/dL 09/08/2018 Comp Metabolic Aas136 eG FR 70 ml/min/1.73m2 09/08 Comp Metabolic Lmw882 BUN 11 mg/dL 09/08/2018 Comp Metabolic Svt133 B/ C Ratio 10.3 Ratio 09/08/2018 Comp Metabolic Zdj063 CA LCIUM 9.2 mg/dL 09/08/2018 Comp Metabolic Kng053 AL K PHOS 65 U/L 09/08/2018 Comp Metabolic Oox109 T(SGOT) 16 U/L 09/08/2018 Comp Metabolic Utc143 AL T(SGPT) 14 U/L 09/08/2018 Comp Metabolic Hgl801 BI LI T 0.6 mg/dL 09/08/2018 Comp Metabolic Ssx527 AL BUMIN 4.0 g/dL 09/08/2018 Comp Metabolic Pyp769 TP RO 6.6 g/dL 09/08/2018 Comp Metabolic Rrb445 GL OB 2.6 g/dL 09/08/2018 Comp Metabolic Szs037 A/ G Ratio 1.6 Ratio 09/08/2018 Comp Metabolic Lbn741 Os mo 272 mOsmo 09/08/2018 Vitamin D 25 Oh Vst9678 VITAMIN D, 25 HYDROXY 37.17 ng/mL 09/08/2018 [...] 33.3 pg 09/08/2018 Cbc With Differential Ord2 Saunders% 8.1 % 09/08/2018 Cbc With Differential Ord2 [...] 2.44 K/ul 09/08/2018 Cbc With Differential Ord2 Saunders ABS# 0.6 K/ul 09/08/2018 Cbc With Differential Ord2 Eos ABS# 0.3 K/ul 09/08/2018 Cbc With Differential Ord2 Baso ABS# 0.0 K/ul 09/08/2018 Tsh Ord6 TSH (3rd IS) 2.72 uIU/mL 09/08/2018 Comp Metabolic Pvw342 NA 139 mEq/L 04/01/2018 Comp Metabolic Sac725 K 4.2 mEq/L 04/01/2018 Comp Metabolic Weo525 CL 102 mEq/L 04/01/2018 Comp Metabolic Vom484 CO2 29.0 mEq/L 04/01/2018 Comp Metabolic Rjj552 AN ION GAP 12 04/01/2018 Comp Metabolic Bor658 GL UCOSE 87 mg/dL 04/01/2018 Comp Metabolic Wye239 Cr eat 1.1 mg/dL 04/01/2018 Comp Metabolic Xix574 eG FR 70 ml/min/1.73m2 04/01 Comp Metabolic Wnw586 BUN 21 mg/dL 04/01/2018 Comp Metabolic Ube340 B/ C Ratio 19.4 Ratio 04/01/2018 Comp Metabolic Auq644 CA LCIUM 9.1 mg/dL 04/01/2018 Comp Metabolic Qks366 AL K PHOS 60 U/L 04/01/2018 Comp Metabolic Fer739 T(SGOT) 15 U/L 04/01/2018 Comp Metabolic Xmh294 AL T(SGPT) 18 U/L 04/01/2018 Comp Metabolic Nmb565 BI LI T 0.4 mg/dL 04/01/2018 Comp Metabolic Erw134 AL BUMIN 4.0 g/dL 04/01/2018 Comp Metabolic Hie339 TP RO 6.5 g/dL 04/01/2018 Comp Metabolic Zvj207 GL OB 2.5 g/dL 04/01/2018 Comp Metabolic Oyk686 A/ G Ratio 1.6 Ratio 04/01/2018 Comp Metabolic Apn571 Os mo 280 mOsmo 04/01/2018 Lipid Ord30 [...] 34.3 pg 04/01/2018 Cbc With Differential Ord2 Saunders% 6.0 % 04/01/2018 Cbc With Differential Ord2 [...] 3.25 K/ul 04/01/2018 Cbc With Differential Ord2 Saunders ABS# 0.6 K/ul 04/01/2018 Cbc With Differential Ord2 Eos ABS# 0.4 K/ul 04/01/2018 Cbc With Differential Ord2 Baso ABS# 0.0 K/ul 04/01/2018 %Hba1C Ybk300 % HbA1c 97918-7 8.0 % 04/01/2018 %Hba1C Tua953 Gluc Ave 183 mg/dL 04/01/2018 Testosterone Enl607 Testo 111.3 ng/dL 04/01/2018 Testosterone Mhh768 Testo 135.4 ng/dL 01/14/2018 Cbc With Differential [...] 36.0 pg 01/14/2018 Cbc With Differential Ord2 Saunders% 6.8 % 01/14/2018 Cbc With Differential Ord2 [...] 2.71 K/ul 01/14/2018 Cbc With Differential Ord2 Saunders ABS# 0.8 K/ul 01/14/2018 Cbc With Differential Ord2 Eos ABS# 0.2 K/ul 01/14/2018 Cbc With Differential Ord2 Baso ABS# 0.0 K/ul 01/14/2018 Comp Metabolic Xrw220 NA 134 mEq/L 11/20/2017 Comp Metabolic Kud094 K 4.4 mEq/L 11/20/2017 Comp Metabolic Ysp908 CL 99 mEq/L 11/20/2017 Comp Metabolic Awj053 CO2 29.0 mEq/L 11/20/2017 Comp Metabolic Ycg183 AN ION GAP 10 11/20/2017 Comp Metabolic Hue610 GL UCOSE 218 mg/dL 11/20/2017 Comp Metabolic Kql276 Cr eat 1.0 mg/dL 11/20/2017 Comp Metabolic Jjv630 eG FR 78 ml/min/1.73m2 11/20 Comp Metabolic Lio304 BUN 13 mg/dL 11/20/2017 Comp Metabolic Cqe582 B/ C Ratio 13.3 Ratio 11/20/2017 Comp Metabolic Tdj014 CA LCIUM 9.0 mg/dL 11/20/2017 Comp Metabolic Jrh392 AL K PHOS 71 U/L 11/20/2017 Comp Metabolic Emh964 T(SGOT) 18 U/L 11/20/2017 Comp Metabolic Zbg022 AL T(SGPT) 17 U/L 11/20/2017 Comp Metabolic Tvv970 BI LI T 0.4 mg/dL 11/20/2017 Comp Metabolic Zuk068 AL BUMIN 4.1 g/dL 11/20/2017 Comp Metabolic Jgn121 TP RO 6.5 g/dL 11/20/2017 Comp Metabolic Sxu154 GL OB 2.4 g/dL 11/20/2017 Comp Metabolic Trd247 A/ G Ratio 1.8 Ratio 11/20/2017 Comp Metabolic Dmr743 Os mo 275 mOsmo 11/20/2017 Cbc With [...] 35.2 pg 11/20/2017 Cbc With Differential Ord2 Saunders% 7.2 % 11/20/2017 Cbc With Differential Ord2 [...] 3.34 K/ul 11/20/2017 Cbc With Differential Ord2 Saunders ABS# 0.6 K/ul 11/20/2017 Cbc With Differential Ord2 Eos ABS# 0.3 K/ul 11/20/2017 Cbc With Differential Ord2 Baso ABS# 0.0 K/ul 11/20/2017 Vitamin D 25 Oh Qfz5766 VITAMIN D, 25 HYDROXY 43.72 ng/mL 11/20/2017 %Hba1C Hbt109 % HbA1c 88825-0 7.4 % 11/20/2017 %Hba1C Xbt356 Gluc Ave 166 mg/dL 11/20/2017 %Hba1C Rdv238 % HbA1c 15105-7 7.2 % 08/20/2017 %Hba1C Qwv862 Gluc Ave 160 mg/dL 08/20/2017 Lipid Ord30 [...] 34.7 pg 08/20/2017 Cbc With Differential Ord2 Saunders% 7.6 % 08/20/2017 Cbc With Differential Ord2 [...] 2.42 K/ul 08/20/2017 Cbc With Differential Ord2 Saunders ABS# 0.6 K/ul 08/20/2017 Cbc With Differential Ord2 Eos ABS# 0.3 K/ul 08/20/2017 Cbc With Differential Ord2 Baso ABS# 0.0 K/ul 08/20/2017 Tsh Ord6 hTSH II 2.27 uIU/mL 08/20/2017 Comp Metabolic Bsn007 NA 138 mEq/L 08/20/2017 Comp Metabolic Puq628 K 4.3 mEq/L 08/20/2017 Comp Metabolic Zjn946 CL 102 mEq/L 08/20/2017 Comp Metabolic Cok898 CO2 29.0 mEq/L 08/20/2017 Comp Metabolic Nlq703 AN ION GAP 11 08/20/2017 Comp Metabolic Tfm301 GL UCOSE 89 mg/dL 08/20/2017 Comp Metabolic Luk677 Cr eat 1.0 mg/dL 08/20/2017 Comp Metabolic Suo198 eG FR 80 ml/min/1.73m2 08/20 Comp Metabolic Fix818 BUN 13 mg/dL 08/20/2017 Comp Metabolic Kuf913 B/ C Ratio 13.5 Ratio 08/20/2017 Comp Metabolic Ekx013 CA LCIUM 9.2 mg/dL 08/20/2017 Comp Metabolic Unp919 AL K PHOS 69 U/L 08/20/2017 Comp Metabolic Sxu966 T(SGOT) 18 U/L 08/20/2017 Comp Metabolic Zti517 AL T(SGPT) 19 U/L 08/20/2017 Comp Metabolic Ein789 BI LI T 0.6 mg/dL 08/20/2017 Comp Metabolic Eai748 AL BUMIN 4.0 g/dL 08/20/2017 Comp Metabolic Qyk311 TP RO 6.6 g/dL 08/20/2017 Comp Metabolic Evp698 GL OB 2.6 g/dL 08/20/2017 Comp Metabolic Epl215 A/ G Ratio 1.5 Ratio 08/20/2017 Comp Metabolic Yvx622 Os mo 275 mOsmo 08/20/2017 Vitamin D 25 Oh Qpc1821 VITAMIN D, 25 HYDROXY 30.96 ng/mL 08/20/2017 B12 Hqg412 B12 >1500.00 pg/ml 02/22/2017 Cbc With Differential [...] 35.7 pg 02/20/2017 Cbc With Differential Ord2 Saunders% 6.3 % 02/20/2017 Cbc With Differential Ord2 [...] 3.19 K/ul 02/20/2017 Cbc With Differential Ord2 Saunders ABS# 0.5 K/ul 02/20/2017 Cbc With Differential Ord2 Eos ABS# 0.4 K/ul 02/20/2017 Cbc With Differential Ord2 Baso ABS# 0.0 K/ul 02/20/2017 Comp Metabolic Ntf297 NA 138 mEq/L 02/20/2017 Comp Metabolic Mtt263 K 4.5 mEq/L 02/20/2017 Comp Metabolic Qlb725 CL 101 mEq/L 02/20/2017 Comp Metabolic Dla730 CO2 31.0 mEq/L 02/20/2017 Comp Metabolic Niw606 AN ION GAP 11 02/20/2017 Comp Metabolic Wjl480 GL UCOSE 120 mg/dL 02/20/2017 Comp Metabolic Ecs721 Cr eat 0.9 mg/dL 02/20/2017 Comp Metabolic Fmt998 eG FR 83 ml/min/1.73m2 02/20 Comp Metabolic Xae623 BUN 15 mg/dL 02/20/2017 Comp Metabolic Klg991 B/ C Ratio 16.1 Ratio 02/20/2017 Comp Metabolic Wto017 CA LCIUM 9.1 mg/dL 02/20/2017 Comp Metabolic Nim167 AL K PHOS 67 U/L 02/20/2017 Comp Metabolic Uil771 T(SGOT) 15 U/L 02/20/2017 Comp Metabolic Yzk288 AL T(SGPT) 16 U/L 02/20/2017 Comp Metabolic Qmt946 BI LI T 0.5 mg/dL 02/20/2017 Comp Metabolic Sju771 AL BUMIN 4.0 g/dL 02/20/2017 Comp Metabolic Fup540 TP RO 6.4 g/dL 02/20/2017 Comp Metabolic Lce463 GL OB 2.4 g/dL 02/20/2017 Comp Metabolic Cpr866 A/ G Ratio 1.7 Ratio 02/20/2017 Comp Metabolic Sil817 Os mo 278 mOsmo 02/20/2017 Tsh Ord6 hTSH II 2.05 uIU/mL 02/20/2017 %Hba1C Hji233 % HbA1c 16112-2 7.6 % 02/20/2017 %Hba1C Jdu396 Gluc Ave 171 mg/dL 02/20/2017 Vitamin D 25 Oh Zpi3860 VITAMIN D, 25 HYDROXY 44.40 ng/mL 12/21/2016 Comp Metabolic Bei044 NA 131 mEq/L 12/21/2016 Comp Metabolic Pax646 K 4.2 mEq/L 12/21/2016 Comp Metabolic Sfo304 CL 97 mEq/L 12/21/2016 Comp Metabolic Gen085 CO2 27.0 mEq/L 12/21/2016 Comp Metabolic Gve289 AN ION GAP 11 12/21/2016 Comp Metabolic Yrm531 GL UCOSE 266 mg/dL 12/21/2016 Comp Metabolic Zud575 Cr eat 0.9 mg/dL 12/21/2016 Comp Metabolic Jmg631 eG FR 88 ml/min/1.73m2 12/21 Comp Metabolic Imb115 BUN 12 mg/dL 12/21/2016 Comp Metabolic Zoe616 B/ C Ratio 13.6 Ratio 12/21/2016 Comp Metabolic Eea359 CA LCIUM 8.6 mg/dL 12/21/2016 Comp Metabolic Abu786 AL K PHOS 69 U/L 12/21/2016 Comp Metabolic Izm237 T(SGOT) 15 U/L 12/21/2016 Comp Metabolic Egy914 AL T(SGPT) 14 U/L 12/21/2016 Comp Metabolic Wqf989 BI LI T 0.3 mg/dL 12/21/2016 Comp Metabolic Itv398 AL BUMIN 3.7 g/dL 12/21/2016 Comp Metabolic Wxx874 TP RO 5.9 g/dL 12/21/2016 Comp Metabolic Oum267 GL OB 2.2 g/dL 12/21/2016 Comp Metabolic Gfy349 A/ G Ratio 1.7 Ratio 12/21/2016 Comp Metabolic Ued744 Os mo 272 mOsmo 12/21/2016 Cbc With [...] 34.6 pg 12/21/2016 Cbc With Differential Ord2 Saunders% 6.9 % 12/21/2016 Cbc With Differential Ord2 [...] 2.05 K/ul 12/21/2016 Cbc With Differential Ord2 Saunders ABS# 0.4 K/ul 12/21/2016 Cbc With Differential Ord2 Eos ABS# 0.2 K/ul 12/21/2016 Cbc With Differential Ord2 Baso ABS# 0.0 K/ul 12/21/2016 Comp Metabolic Bul889 NA 138 mEq/L 09/03/2016 Comp Metabolic Aez065 K 4.5 mEq/L 09/03/2016 Comp Metabolic Yzc533 CL 102 mEq/L 09/03/2016 Comp Metabolic Xuf536 CO2 30.0 mEq/L 09/03/2016 Comp Metabolic Tem488 AN ION GAP 11 09/03/2016 Comp Metabolic Srr997 GL UCOSE 113 mg/dL 09/03/2016 Comp Metabolic Hhp611 Cr eat 1.0 mg/dL 09/03/2016 Comp Metabolic Dsf879 eG FR 81 ml/min/1.73m2 09/03 Comp Metabolic Uqc072 BUN 10 mg/dL 09/03/2016 Comp Metabolic Ofm843 B/ C Ratio 10.5 Ratio 09/03/2016 Comp Metabolic Ycv939 CA LCIUM 9.1 mg/dL 09/03/2016 Comp Metabolic Xwk012 AL K PHOS 71 U/L 09/03/2016 Comp Metabolic Met604 T(SGOT) 18 U/L 09/03/2016 Comp Metabolic Pnb875 AL T(SGPT) 17 U/L 09/03/2016 Comp Metabolic Yau507 BI LI T 0.6 mg/dL 09/03/2016 Comp Metabolic Luq256 AL BUMIN 4.1 g/dL 09/03/2016 Comp Metabolic Pdz020 TP RO 6.4 g/dL 09/03/2016 Comp Metabolic Zwj547 GL OB 2.3 g/dL 09/03/2016 Comp Metabolic Msk500 A/ G Ratio 1.8 Ratio 09/03/2016 Comp Metabolic Qkn800 Os mo 276 mOsmo 09/03/2016 Vitamin D 25 Oh Npt8148 VITAMIN D, 25 HYDROXY 28.23 ng/mL 09/03/2016 [...] 34.4 pg 09/03/2016 Cbc With Differential Ord2 Saunders% 8.9 % 09/03/2016 Cbc With Differential Ord2 [...] 3.34 K/ul 09/03/2016 Cbc With Differential Ord2 Saunders ABS# 0.7 K/ul 09/03/2016 Cbc With Differential Ord2 Eos ABS# 0.4 K/ul 09/03/2016 Cbc With Differential Ord2 Baso ABS# 0.0 K/ul 09/03/2016 Lipid Ord30 CHOL 120 mg/dL 09/03/2016 Lipid Ord30 HDL 33.0 mg/dl 09/03/2016 Lipid Ord30 TRIG 161 mg/dL 09/03/2016 Lipid Ord30 LDL 55 mg/dL 09/03/2016 Lipid Ord30 C/HDL 3.6 Ratio 09/03/2016 %Hba1C Zjm836 % HbA1c 60096-7 7.5 % 09/03/2016 %Hba1C Mad594 Gluc Ave 169 mg/dL 09/03/2016 Tsh Ord6 hTSH II 1.50 uIU/mL 05/23/2016 %Hba1C Dnk582 % HbA1c 44199-6 7.6 % 05/23/2016 %Hba1C Qmz343 Gluc Ave 171 mg/dL 05/23/2016 Comp Metabolic Jcp649 NA 135 mEq/L 05/23/2016 Comp Metabolic Ptg574 K 4.4 mEq/L 05/23/2016 Comp Metabolic Gtz379 CL 99 mEq/L 05/23/2016 Comp Metabolic Dnw081 CO2 28.0 mEq/L 05/23/2016 Comp Metabolic Gjq139 AN ION GAP 12 05/23/2016 Comp Metabolic Xhq983 GL UCOSE 257 mg/dL 05/23/2016 Comp Metabolic Mkb262 Cr eat 0.8 mg/dL 05/23/2016 Comp Metabolic Sov773 eG FR 95 ml/min/1.73m2 05/23 Comp Metabolic Rze498 BUN 11 mg/dL 05/23/2016 Comp Metabolic Ibc080 B/ C Ratio 13.3 Ratio 05/23/2016 Comp Metabolic Dsf980 CA LCIUM 9.0 mg/dL 05/23/2016 Comp Metabolic Imd267 AL K PHOS 82 U/L 05/23/2016 Comp Metabolic Ffj116 T(SGOT) 21 U/L 05/23/2016 Comp Metabolic Ovf034 AL T(SGPT) 20 U/L 05/23/2016 Comp Metabolic Mtj005 BI LI T 0.3 mg/dL 05/23/2016 Comp Metabolic Dfh096 AL BUMIN 4.0 g/dL 05/23/2016 Comp Metabolic Nmp871 TP RO 6.4 g/dL 05/23/2016 Comp Metabolic Qph184 GL OB 2.4 g/dL 05/23/2016 Comp Metabolic Elt656 A/ G Ratio 1.6 Ratio 05/23/2016 Comp Metabolic Kru935 Os mo 278 mOsmo 05/23/2016 Cbc With [...] 34.5 pg 05/23/2016 Cbc With Differential Ord2 Saunders% 6.1 % 05/23/2016 Cbc With Differential Ord2 [...] 2.38 K/ul 05/23/2016 Cbc With Differential Ord2 Saunders ABS# 0.4 K/ul 05/23/2016 Cbc With Differential Ord2 Eos ABS# 0.2 K/ul 05/23/2016 Cbc With Differential Ord2 Baso ABS# 0.0 K/ul 05/23/2016 B12 Mgy689 B12 597.00 pg/ml 05/23/2016 Metabolic Ord15 NA [...] 0.92 uIU/mL 07/29/2015 Vitamin D 25 Oh Hpi3101 VITAMIN D, 25 HYDROXY 26.93 ng/mL 07/29/2015 %Hba1C Pth960 % HbA1c 45495-9 8.8 % 07/29/2015 %Hba1C Kkr592 Gluc Ave 206 mg/dL 07/29/2015 Cbc With [...] Ord2 RDW 14.9 % 07/29/2015 Comp Metabolic Kqi854 NA 138 mEq/L 07/29/2015 Comp Metabolic Yzf355 K 4.4 mEq/L 07/29/2015 Comp Metabolic Pea389 CL 102 mEq/L 07/29/2015 Comp Metabolic Wnz169 CO2 28.0 mEq/L 07/29/2015 Comp Metabolic Kpg840 AN ION GAP 12 07/29/2015 Comp Metabolic Ycd140 GL UCOSE 261 mg/dL 07/29/2015 Comp Metabolic Tab184 Cr eat 1.0 mg/dL 07/29/2015 Comp Metabolic Bll904 eG FR 77 ml/min/1.73m2 07/29 Comp Metabolic Oed782 BUN 13 mg/dL 07/29/2015 Comp Metabolic Aet383 B/ C Ratio 13.0 Ratio 07/29/2015 Comp Metabolic Gcd597 CA LCIUM 9.1 mg/dL 07/29/2015 Comp Metabolic Den102 AL K PHOS 64 U/L 07/29/2015 Comp Metabolic Bxm245 T(SGOT) 20 U/L 07/29/2015 Comp Metabolic Fez276 AL T(SGPT) 22 U/L 07/29/2015 Comp Metabolic Brv079 BI LI T 0.4 mg/dL 07/29/2015 Comp Metabolic Ppp897 AL BUMIN 4.0 g/dL 07/29/2015 Comp Metabolic Dwk438 TP RO 6.1 g/dL 07/29/2015 Comp Metabolic Fer988 GL OB 2.1 g/dL 07/29/2015 Comp Metabolic Evf940 A/ G Ratio 1.9 Ratio 07/29/2015 Comp Metabolic Cji698 Os mo 285 mOsmo 07/29/2015 Cbc With [...] Ord2 RDW 13.1 % 05/06/2015 Comp Metabolic Amw420 NA 134 mEq/L 05/06/2015 Comp Metabolic Dsy469 K 4.4 mEq/L 05/06/2015 Comp Metabolic Zpi767 CL 98 mEq/L 05/06/2015 Comp Metabolic Pwc393 CO2 29.0 mEq/L 05/06/2015 Comp Metabolic Fvt932 AN ION GAP 11 05/06/2015 Comp Metabolic Rby498 GL UCOSE 321 mg/dL 05/06/2015 Comp Metabolic Nyy962 Cr eat 1.0 mg/dL 05/06/2015 Comp Metabolic Jnr214 eG FR 78 ml/min/1.73m2 05/06 Comp Metabolic Ldy122 BUN 20 mg/dL 05/06/2015 Comp Metabolic Fwd590 B/ C Ratio 20.4 Ratio 05/06/2015 Comp Metabolic Qhi859 CA LCIUM 9.5 mg/dL 05/06/2015 Comp Metabolic Kaz874 AL K PHOS 62 U/L 05/06/2015 Comp Metabolic Uje983 T(SGOT) 21 U/L 05/06/2015 Comp Metabolic Qqi324 AL T(SGPT) 37 U/L 05/06/2015 Comp Metabolic Oxo040 BI LI T 0.4 mg/dL 05/06/2015 Comp Metabolic Uyr643 AL BUMIN 3.8 g/dL 05/06/2015 Comp Metabolic Hec219 TP RO 6.1 g/dL 05/06/2015 Comp Metabolic Xcf150 GL OB 2.3 g/dL 05/06/2015 Comp Metabolic Itf088 A/ G Ratio 1.7 Ratio 05/06/2015 Comp Metabolic Qdf907 Os mo 283 mOsmo 05/06/2015 Tsh Ord6 hTSH II 1.65 uIU/mL 02/18/2015 B12 Sdf532 B12 605.00 pg/ml 02/18/2015 %Hba1C Rlf639 % HbA1c 12878-1 8.3 % 02/18/2015 %Hba1C Rvi688 Gluc Ave 192 mg/dL 02/18/2015 Cbc With [...] Ord2 RDW 13.9 % 02/17/2015 Comp Metabolic Pzh915 NA 137 mEq/L 02/17/2015 Comp Metabolic Fep274 K 4.4 mEq/L 02/17/2015 Comp Metabolic Wle693 CL 100 mEq/L 02/17/2015 Comp Metabolic Zkt798 CO2 31.0 mEq/L 02/17/2015 Comp Metabolic Xnl818 AN ION GAP 10 02/17/2015 Comp Metabolic Hns788 GL UCOSE 307 mg/dL 02/17/2015 Comp Metabolic Dic786 Cr eat 1.0 mg/dL 02/17/2015 Comp Metabolic Nwz521 eG FR 74 ml/min/1.73m2 02/17 Comp Metabolic Alg942 BUN 22 mg/dL 02/17/2015 Comp Metabolic Mcs523 B/ C Ratio 21.4 Ratio 02/17/2015 Comp Metabolic Dyu072 CA LCIUM 9.5 mg/dL 02/17/2015 Comp Metabolic Jzg113 AL K PHOS 78 U/L 02/17/2015 Comp Metabolic Mbx169 T(SGOT) 18 U/L 02/17/2015 Comp Metabolic Nvs381 AL T(SGPT) 32 U/L 02/17/2015 Comp Metabolic Ska112 BI LI T 0.5 mg/dL 02/17/2015 Comp Metabolic Rtm553 AL BUMIN 4.3 g/dL 02/17/2015 Comp Metabolic Ayw175 TP RO 6.7 g/dL 02/17/2015 Comp Metabolic Fnn750 GL OB 2.4 g/dL 02/17/2015 Comp Metabolic Nhg462 A/ G Ratio 1.8 Ratio 02/17/2015 Comp Metabolic Nkk716 Os mo 289 mOsmo 02/17/2015 Review of Systems System Result Effective Dates Constitutional No recent illness 09/02/2018 Constitutional No [...] General 1995 Ears/Nose/Throat lips/teeth/gingiva Overall: benign lips 09/02/2018 None [...] spine 06/06/2018 None Full Exam - General 1995 Musculoskeletal [...] sounds 02/20/2018 None Full Exam - General 1995 Lymphatic [...] inspection of skin Location: face 03/07/2015 on jain, cheeks,actinic keratosis with irritation on left cheek - left jain - croptherapy on these two lesions - [...] Procedure Codes Date THER/PROPH/DIAG INJ SC/IM CPT-4: 69229 10/14/2018 THER/PROPH/DIAG INJ SC/IM CPT-4: 12153 10/03/2018 THER/PROPH/DIAG INJ SC/IM CPT-4: 83542 09/23/2018 THER/PROPH/DIAG INJ SC/IM CPT-4: 87138 09/02/2018 THER/PROPH/DIAG INJ SC/IM CPT-4: 02111 08/21/2018 THER/PROPH/DIAG INJ SC/IM CPT-4: 24661 08/08/2018 THER/PROPH/DIAG INJ SC/IM CPT-4: 95195 07/28/2018 THER/PROPH/DIAG INJ SC/IM CPT-4: 45891 07/16/2018 THER/PROPH/DIAG INJ SC/IM CPT-4: 65337 07/02/2018 PPPS, SUBSEQ VISIT CPT- 4: G0439 06/30/2018 THER/PROPH/DIAG INJ SC/IM CPT-4: 74786 06/24/2018 THER/PROPH/DIAG INJ SC/IM CPT-4: 23482 06/13/2018 ADMIN INFLUENZA VIRU S VAC CPT-4: G0008 06/06/2018 FLU VACC PRSV FREE I NC ANTIG CPT-4: 78839 06/06/2018 THER/PROPH/DIAG INJ SC/IM CPT-4: 30945 06/05/2018 THER/PROPH/DIAG INJ SC/IM CPT-4: 14127 05/30/2018 THER/PROPH/DIAG INJ SC/IM CPT-4: 04355 05/22/2018 THER/PROPH/DIAG INJ SC/IM CPT-4: 44631 05/12/2018 THER/PROPH/DIAG INJ SC/IM CPT-4: 17551 05/02/2018 THER/PROPH/DIAG INJ SC/IM CPT-4: 79428 04/24/2018 THER/PROPH/DIAG INJ SC/IM CPT-4: 56743 04/17/2018 KETOROLAC TROMETHAMI NE INJ CPT-4: J1885 03/07/2018 URINALYSIS NONAUTO W /O SCOPE CPT-4: 92853 03/07/2018 THER/PROPH/DIAG INJ SC/IM CPT-4: 87698 02/20/2018 TRIAMCINOLONE ACET I [place] NOS CPT-4: J3301 01/30/2018 THER/PROPH/DIAG INJ SC/IM CPT-4: 32337 01/17/2018 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 3-[address]: 251035879 CPT-4: G0436 04/25/2017 ADMIN INFLUENZA VIRU S VAC CPT-4: G0008 04/25/2017 ADMIN PNEUMOCOCCAL V ACCINE SNOMED CT: 26035249 CPT-4: G0009 04/25/2017 PNEUMOCOCCAL VACC [address]: 59744491 CPT-4: 40133 04/25/2017 FLU VACC PRSV FREE I NC ANTIG CPT-4: 80096 04/25/2017 ADMIN INFLUENZA VIRU S VAC CPT-4: G0008 05/22/2016 FLU VACC 4 TELLY 3 YRS PLUS IM Formatting Model/CDA Sections, Assigned to/Angela Clemons SNOMED CT: 06149507 CPT-4: 39094Gevothh 05/22/2016 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 3-[address]: 646857295 CPT-4: G0436 11/25/2015 URINALYSIS NONAUTO W /O SCOPE CPT-4: 75161 05/09/2015 TRIAMCINOLONE ACET I [place] NOS CPT-4: J3301 04/12/2015 DESTRUCT PREMALG LESION CPT-4: 25595 03/07/2015 DESTRUCT PREMALG LES 2-14 CPT-4: 99773 03/07/2015 REMOVE IMPACTED EAR WAX UNI CPT-4: 40957 12/31/2014 THER/PROPH/DIAG INJ SC/IM CPT-4: 29116 12/23/2014 TRIAMCINOLONE ACET I [place] NOS CPT-4: J3301 12/23/2014 Vital Signs Date Vital 09/02/2018 Blood Pressure 1: 140/80 Code: 8480-6 BMI: 21.2 Code: 15634-6 Heart Rate 1: 68 bpm Height: 5'11" SpO2: 97% Weight: 152 lbs 06/30/2018 BMI: 21.8 Code: 90073-2 Height: 5'11" Weight: 156 lbs 06/06/2018 Blood Pressure 1: 128/76 Code: 8480-6 BMI: 22.0 Code: 64267-2 Heart Rate 1: 81 bpm Height: 5'11" SpO2: 92% Weight: 158 lbs 04/04/2018 Blood Pressure 1: 124/70 Code: 8480-6 BMI: 20.8 Code: 10678-2 Heart Rate 1: 65 bpm Height: 5'11" SpO2: 95% Weight: 149 lbs 03/07/2018 Blood Pressure 1: 148/70 Code: 8480-6 BMI: 21.2 Code: 66770-3 Heart Rate 1: 66 bpm Height: 5'11" SpO2: 94% Weight: 152 lbs 02/20/2018 Blood Pressure 1: 134/58 Code: 8480-6 BMI: 20.5 Code: 38277-9 Heart Rate 1: 61 bpm Height: 5'11" SpO2: 92% Weight: 147 lbs 01/30/2018 Blood Pressure 1: 158/68 Code: 8480-6 BMI: 21.5 Code: 09731-5 Heart Rate 1: 71 bpm Height: 5'11" SpO2: 92% Weight: 154 lbs 01/14/2018 Blood Pressure 1: 156/70 Code: 8480-6 Height: Weight: 01/13/2018 Blood Pressure 1: 148/62 Code: 8480-6 BMI: 20.9 Code: 19459-6 Heart Rate 1: 54 bpm Height: 5'11" SpO2: 97% Weight: 150 lbs 11/19/2017 Blood Pressure 1: 150/60 Code: 8480-6 BMI: 21.8 Code: 86192-3 Heart Rate 1: 63 bpm Height: 5'11" SpO2: 98% Weight: 156 lbs 10/02/2017 Blood Pressure 1: 168/60 Code: 8480-6 BMI: 21.9 Code: 95139-4 Heart Rate 1: 52 bpm Height: 5'11" SpO2: 97% Weight: 157 lbs 07/23/2017 Blood Pressure 1: 170/70 Code: 8480-6 BMI: 21.8 Code: 10163-5 Heart Rate 1: 65 bpm Height: 5'11" SpO2: 98% Weight: 156 lbs 04/25/2017 Blood Pressure 1: 138/60 Code: 8480-6 BMI: 21.6 Code: 39749-8 Heart Rate 1: 55 bpm Height: 5'11" SpO2: 93% Weight: 155 lbs 02/19/2017 Blood Pressure 1: 138/64 Code: 8480-6 BMI: 21.3 Code: 49293-3 Heart Rate 1: 52 bpm Height: 5'11" SpO2: 96% Weight: 152 lbs 8 oz 01/21/2017 Blood Pressure 1: 160/68 Code: 8480-6 BMI: 21.3 Code: 98189-6 Heart Rate 1: 62 bpm Height: 5'11" SpO2: 96% Weight: 153 lbs 12/20/2016 Blood Pressure 1: 124/66 Code: 8480-6 BMI: 21.5 Code: 29424-7 Height: 5'11" Weight: 154 lbs 08/23/2016 Blood Pressure 1: 142/52 Code: 8480-6 BMI: 21.2 Code: 26186-5 Heart Rate 1: 54 bpm Height: 5'11" SpO2: 96% Weight: 152 lbs 05/22/2016 Blood Pressure 1: 130/76 Code: 8480-6 BMI: 21.5 Code: 64610-8 Heart Rate 1: 78 bpm Height: 5'11" SpO2: 92% Weight: 154 lbs 02/24/2016 Blood Pressure 1: 128/80 Code: 8480-6 BMI: 21.2 Code: 85839-2 Heart Rate 1: 74 bpm Height: 5'11" SpO2: 96% Weight: 152 lbs 01/27/2016 Blood Pressure 1: 144/60 Code: 8480-6 BMI: 21.2 Code: 55014-0 Heart Rate 1: 74 bpm Height: 5'11" SpO2: 97% Weight: 152 lbs 11/25/2015 Blood Pressure 1: 110/52 Code: 8480-6 BMI: 21.9 Code: 64398-3 Heart Rate 1: 65 bpm Height: 5'11" SpO2: 92% Weight: 157 lbs 07/28/2015 Blood Pressure 1: 138/62 Code: 8480-6 BMI: 21.8 Code: 39485-5 Heart Rate 1: 63 bpm Height: 5'11" SpO2: 91% Weight: 156 lbs 05/26/2015 Blood Pressure 1: 120/58 Code: 8480-6 BMI: 21.5 Code: 87460-9 Heart Rate 1: 99 bpm Height: 5'11" SpO2: 96% Weight: 154 lbs 05/06/2015 Blood Pressure 1: 120/58 Code: 8480-6 BMI: 21.2 Code: 01600-5 Heart Rate 1: 66 bpm Height: 5'11" SpO2: 96% Weight: 152 lbs 04/25/2015 Blood Pressure 1: 136/62 Code: 8480-6 BMI: 21.2 Code: 76619-1 Heart Rate 1: 63 bpm Height: 5'11" SpO2: 97% Weight: 152 lbs 04/12/2015 Blood Pressure 1: 160/58 Code: 8480-6 BMI: 21.6 Code: 53989-7 Heart Rate 1: 62 bpm Height: 5'11" Weight: 155 lbs 03/24/2015 Blood Pressure 1: 138/68 Code: 8480-6 BMI: 22.0 Code: 83856-8 Heart Rate 1: 65 bpm Height: 5'11" SpO2: 96% Weight: 158 lbs 03/07/2015 Blood Pressure 1: 116/52 Code: 8480-6 BMI: 22.2 Code: 43244-8 Heart Rate 1: 64 bpm Height: 5'11" SpO2: 97% Weight: 159 lbs 02/17/2015 Blood Pressure 1: 148/58 Code: 8480-6 BMI: 21.3 Code: 07465-7 Heart Rate 1: 63 bpm Height: 5'11" SpO2: 97% Weight: 153 lbs 12/31/2014 Blood Pressure 1: 100/60 Code: 8480-6 BMI: 21.8 Code: 70632-8 Heart Rate 1: 68 bpm Height: 5'11" Weight: 156 lbs 12/23/2014 Blood Pressure 1: 148/64 Code: 8480-6 BMI: 21.9 Code: 11215-5 Heart Rate 1: 64 bpm Height: 5'11" Weight: 157 lbs 12/09/2014 Blood Pressure 1: 152/62 Code: 8480-6 Heart Rate 1: 58 bpm SpO2: 98% Weight: 159 lbs Functional Status No Functional Status data History of Present Illness Symptom Name Status Resu lt Effective Date Notes Quality insulin depend ent 09/02/2018 None Quality [...] Encounters Encounter Performer Loca tion Codes Date [id number]) [id number] EST. P ATIENT, LEVEL IV Diagnosis: Essential (primary) hypertension[ICD10: I10] Diagnosis: Chronic obstructive pulmonary disease, unspecified[ICD10: J44.9] Diagnosis: Type 2 diabetes mellitus with hyperglycemia[ICD10: E11.65] Diagnosis: Vitamin D deficiency, unspecified[ICD10: E55.9] Diagnosis: Mixed hyperlipidemia[ICD10: E78.2] Diagnosis: Testicular dysfunction, unspecified[ICD10: E29.9] Karmen Ash MD, [facility] CPT-4: 83953 09/02/2018 [id number] EST. P ATIENT, LEVEL IV Diagnosis: Cellulitis of face[ICD10: L03.211] Diagnosis: Type 2 diabetes mellitus without complications[ICD10: E11.9] Diagnosis: Essential (primary) hypertension[ICD10: I10] Diagnosis: Encounter for immunization[ICD10: Z23] [facility] CPT-4: 09701 06/06/2018 [id number] EST. P ATIENT, LEVEL IV Diagnosis: Essential (primary) hypertension[ICD10: I10] Diagnosis: Chronic obstructive pulmonary disease, unspecified[ICD10: J44.9] Diagnosis: Testicular dysfunction, unspecified[ICD10: E29.9] Diagnosis: Type 2 diabetes mellitus with hyperglycemia[ICD10: E11.65] Karmen Ash MD, [facility] CPT-4: 07786 04/04/2018 ([id number]) [id number] EST. P ATIENT, LEVEL III Diagnosis: Low back pain[ICD10: M54.5] Diagnosis: Dysuria[ICD10: R30.0] Karmen Ash MD, [facility] CPT-4: 63204 03/07/2018 ([id number]) 43493 EST. 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 P ATIENT, LEVEL III Diagnosis: Chronic obstructive pulmonary disease with (acute) exacerbation[ICD10: J44.1] Karmen Ash MD, [facility] CPT-4: 33977 01/30/2018 18834 EST. PATIENT, LEVEL II Diagnosis: Insect bite (nonvenomous), left lower leg, initial encounter[ICD10: S80.862A] Karmen Ash MD, [facility] CPT-4: 62686 01/14/2018 ([id number]) 66925 EST. P ATIENT, LEVEL IV Diagnosis: Type 2 diabetes mellitus with hyperglycemia[ICD10: E11.65] Diagnosis: Chronic obstructive pulmonary disease, unspecified[ICD10: J44.9] Diagnosis: Other fatigue[ICD10: R53.83] Karmen Ash MD, [facility] CPT- 4: 25597 01/13/2018 ([id number]) 25098 EST. P ATIENT, LEVEL IV Diagnosis: Type 2 diabetes mellitus with hyperglycemia[ICD10: E11.65] Diagnosis: Vitamin D deficiency, unspecified[ICD10: E55.9] Diagnosis: Essential (primary) hypertension[ICD10: I10] Diagnosis: Abdominal distension (gaseous)[ICD10: R14.0] Diagnosis: Drug induced constipation[ICD10: K59.03] Karmen Ash MD, [facility] CPT-4: 55913 11/19/2017 12695 EST. PATIENT, LEVEL IV Diagnosis: Low back pain[ICD10: M54.5] Diagnosis: Chronic obstructive pulmonary disease, unspecified[ICD10: J44.9] Brunilda Ash MD, [facility] CPT-4: 71406 10/02/2017 ([id number]) 94917 EST. P ATIENT, LEVEL IV Diagnosis: Essential (primary) hypertension[ICD10: I10] Diagnosis: Type 2 diabetes mellitus with hyperglycemia[ICD10: E11.65] Diagnosis: Vitamin D deficiency, unspecified[ICD10: E55.9] Diagnosis: Mixed hyperlipidemia[ICD10: E78.2] Karmen Ash MD, [facility] CPT-4: 43030 07/23/2017 ([id number]) 59366 EST. P ATIENT, LEVEL IV Diagnosis: Essential (primary) hypertension[ICD10: I10] Diagnosis: Type 2 diabetes mellitus with hyperglycemia[ICD10: E11.65] Diagnosis: Chronic obstructive pulmonary disease, unspecified[ICD10: J44.9] Diagnosis: Nicotine dependence, unspecified, uncomplicated[ICD10: F17.200] Diagnosis: Encounter for immunization[ICD10: Z23] Karmen Ash MD, [facility] CPT-4: 02977 04/25/2017 ([id number]) 25303 EST. P ATIENT, LEVEL IV Diagnosis: Type 2 diabetes mellitus with hyperglycemia[ICD10: E11.65] Diagnosis: Essential (primary) hypertension[ICD10: I10] Diagnosis: Anemia, unspecified[ICD10: D64.9] Karmen Ash MD, [facility] CPT- 4: 09918 02/19/2017 ([id number]) 72613 EST. P ATIENT, LEVEL IV Diagnosis: Slow transit constipation[ICD10: K59.01] Diagnosis: Gastro-esophageal reflux disease without esophagitis[ICD10: K21.9] Diagnosis: Essential (primary) hypertension[ICD10: I10] Karmen Ash MD, [facility] CPT-4: 61543 01/21/2017 ([id number]) 69052 EST. P ATIENT, LEVEL IV Diagnosis: Type 2 diabetes mellitus with hyperglycemia[ICD10: E11.65] Diagnosis: Vitamin D deficiency, unspecified[ICD10: E55.9] Diagnosis: Essential (primary) hypertension[ICD10: I10] Diagnosis: Chronic obstructive pulmonary disease, unspecified[ICD10: J44.9] Karmen Ash MD, [facility] CPT-4: 15977 12/20/2016 ([id number]) 85475 EST. P ATIENT, LEVEL IV Diagnosis: Type 2 diabetes mellitus with hyperglycemia[ICD10: E11.65] Diagnosis: Essential (primary) hypertension[ICD10: I10] Diagnosis: Mixed hyperlipidemia[ICD10: E78.2] Diagnosis: Vitamin D deficiency, unspecified[ICD10: E55.9] Karmen Ash MD, [facility] CPT-4: 32897 08/23/2016 ([id number]) 33141 EST. P ATIENT, LEVEL IV Diagnosis: Type 2 diabetes mellitus with hyperglycemia[ICD10: E11.65] Diagnosis: Essential (primary) hypertension[ICD10: I10] Diagnosis: Chronic obstructive pulmonary disease, unspecified[ICD10: J44.9] Karmen Ash MD, [facility] CPT-4: 64584 05/22/2016 ([id number]) 97444 EST. P ATIENT, LEVEL III Diagnosis: Dysuria[ICD10: R30.0] Diagnosis: Essential (primary) hypertension[ICD10: I10] Karmen Ash MD, [facility] CPT-4: 72815 02/24/2016 ([id number]) 26507 EST. P ATIENT, LEVEL IV Diagnosis: Gastro-esophageal reflux disease without esophagitis[ICD10: K21.9] Diagnosis: Slow transit constipation[ICD10: K59.01] Diagnosis: Type 2 diabetes mellitus with hyperglycemia[ICD10: E11.65] Karmen Ash MD, [facility] CPT-4: 97965 01/27/2016 ([id number]) 91247 EST. P ATIENT, LEVEL IV Diagnosis: Essential (primary) hypertension[ICD10: I10] Diagnosis: Type 2 diabetes mellitus with hyperglycemia[ICD10: E11.65] Diagnosis: Vitamin D deficiency, unspecified[ICD10: E55.9] Diagnosis: Chronic obstructive pulmonary disease, unspecified[ICD10: J44.9] Diagnosis: Mixed hyperlipidemia[ICD10: E78.2] Diagnosis: Tobacco use[ICD10: Z72.0] Karmen Ash MD, [facility] CPT- 4: 02442 11/25/2015 ([id number]) 21944 EST. P ATIENT, LEVEL IV Diagnosis: Type 2 diabetes mellitus with hyperglycemia[ICD10: E11.65] Diagnosis: Essential (primary) hypertension[ICD10: I10] Diagnosis: Vitamin D deficiency, unspecified[ICD10: E55.9] [facility] CPT-4: 65460 07/28/2015 ([id number]) 25825 EST. P ATIENT, LEVEL III Diagnosis: Type 2 diabetes mellitus with hyperglycemia[ICD10: E11.65] Diagnosis: Essential (primary) hypertension[ICD10: I10] Violeta Ash MD, [facility] CPT-4: 21027 05/26/2015 ([id number]) 83695 EST. P ATIENT, LEVEL III Diagnosis: DIABETES TYPE II[ICD9: 250.00] Diagnosis: COPD (chronic obstructive pulmonary disease)[ICD9: 496] Diagnosis: ESSENTIAL HYPERTENSION[ICD9: 401.9] Diagnosis: Cough[ICD9: 786.2] Violeta Ash MD, [facility] CPT-4: 77098 05/06/2015 ([id number]) 84949 EST. P ATIENT, LEVEL III Diagnosis: COPD (chronic obstructive pulmonary disease)[ICD9: 496] Diagnosis: DIABETES TYPE II[ICD9: 250.00] Diagnosis: Muscle ache[ICD9: 729.1] [facility] CPT- 4: 62227 04/25/2015 ([id number]) 90250 EST. P ATIENT, LEVEL III Diagnosis: ACTINIC KERATOSIS[ICD9: 702.0] Diagnosis: COPD (chronic obstructive pulmonary disease)[ICD9: 496] Diagnosis: DIABETES TYPE II[ICD9: 250.00] Diagnosis: ACUTE URI[ICD9: 465.9] [facility] CPT-4: 58435 04/12/2015 ([id number]) 54505 EST. P ATIENT, LEVEL III Diagnosis: DIABETES TYPE II[ICD9: 250.00] Violeta Ash MD, [facility] CPT-4: 81020 03/24/2015 ([id number]) 40244 EST. P ATIENT, LEVEL IV Diagnosis: DIABETES TYPE II[ICD9: 250.00] Diagnosis: Hypoglycemia[ICD9: 251.2] Diagnosis: Skin texture changes[ICD9: 782.8] Violeta Ash MD, [facility] CPT-4: 79500 03/07/2015 ([id number]) 69302 EST. P ATIENT, LEVEL IV Diagnosis: COPD (chronic obstructive pulmonary disease)[ICD9: 496] Diagnosis: Fatigue[ICD9: 780.79] Diagnosis: Insulin dependent diabetes mellitus[ICD9: 250.00] Diagnosis: Unsteady gait[ICD9: 781.2] Maame Ash MD, [facility] CPT-4: 91313 02/17/2015 ([id number]) 68180 EST. P ATIENT, LEVEL IV Diagnosis: BPPV (benign paroxysmal positional vertigo)[ICD9: 386.11] Diagnosis: Impacted cerumen[ICD9: 380.4] Diagnosis: ESSENTIAL HYPERTENSION[ICD9: 401.9] Diagnosis: Insulin dependent diabetes mellitus[ICD9: 250.00] Karmen Ash MD, [facility] CPT-4: 26993 12/23/2014 ([id number]) [facility] LEVEL 4 Diagnosis: Insulin dependent diabetes mellitus[ICD9: 250.00] Diagnosis: BPPV (benign paroxysmal positional vertigo)[ICD9: 386.11] Diagnosis: COPD (chronic obstructive pulmonary disease)[ICD9: 496] Diagnosis: Tobacco abuse[ICD9: 305.1] Diagnosis: Osteoarthritis[ICD9: 715.90] Karmen Ash MD, [facility] CPT- 4: 19597 12/09/2014 Plan of Care Planned Activity Notes C odes Status Date Appointment: Injection 10/14/2018 Patient Education: Patient Medication [...] [phone] (15 min) Moderate 09/02/2018 Patient [...] care surrogate. 06/30/2018 Appointment: Karmen Espinal WPtel: [address] [place] [address] - Annual Wellness Visit 06/30/2018 Patient Education: [...] Karmen Espinal WPtel: [facility] [address] (15 min) Moderate 06/06/2018 Patient Education: [...] months 04/04/2018 Appointment: Karmen Espinal WPtel: [phone] [phone] [place] (15 min) Moderate 04/04/2018 Patient Education: Patient Medication Summary Completed 04/04/2018 Care Plan: Cbc With Differential Pending 04/04/2018 Care Plan: Testosterone repeat in 2 months Pending 04/04/2018 Appointment: Karmen Espinal WPtel: [phone] [phone] [place] (15 min) Moderate 03/25/2018 Visit Plan: Low back pain -history of kidney stone-UA negative today -increase fluids and call if pain does not resolve or if any worse. 03/07/2018 Appointment: Espinal[facility]armen [facility]el[facility] [phone] [phone] [place] (15 min) Moderate 03/07/2018 Patient Education: [...] Karmen Espinal WPtel: [facility]9 [facility] [place] [address] (15 min) Moderate 02/20/2018 Patient Education: Patient Medication Summary Completed 02/20/2018 Visit Plan: COPD EXACERBATION - TAXATION CONSULTANT D is a chronic problem for [...] Karmen Espinal WPtel: [facility] (15 min) Moderate 01/30/2018 Patient Education: Patient Medication Summary Completed 01/30/2018 Appointment: Karmen Espinal WPtel: [facility]3 [facility] [place] [address] (15 min) Moderate 01/28/2018 Appointment: Injection 01/17/2018 Patient Education: Patient Medication Summary Completed 01/17/2018 Visit Plan: Cellulitis - start oral antibiotics as directed, return to clinic as previously directed, call for acute change in symptoms, worsening redness, warmth, discharge. 01/14/2018 Appointment: Karmen Espinal WPtel: [facility]0 [facility] [place] [address] (10 min) Simple 01/14/2018 Patient Education: Patient [...] less controlled. 01/13/2018 Appointment: Karmen Espinal WPtel: [phone] (15 min) Moderate 01/13/2018 Patient Education: Patient Medication Summary Completed 01/13/2018 [phone] [facility]6[address] Patient's informed. Referral info ned [...] change in blood pressure readings at home. Dduottya-jprazo-vaiik to see Dr Villatoro Constipation-start linzess daily 11/19/2017 Appointment: Karmen Espinal WPtel: [facility]3 [phone] (30 min) Complex 11/19/2017 Patient Education: Patient Medication Summary Completed 11/19/2017 Care Plan: Referral Order bloating, nausea SNOMED-CT : [id number] Pending 11/19/2017 Visit Plan: Low back pain- [...] acute changes. 10/02/2017 Appointment: Brunilda Maravilla WPtel: [address] [place], [place] [phone] (15 min) [facility] 10/02/2017 Patient Education: Patient Medication Summary Completed [...] controlled. 07/23/2017 Appointment: Karmen Espinal WPtel: [phone] [phone] (30 min) Complex 07/23/2017 Patient Education: Patient [...] history 04/25/2017 Appointment: [facility] [phone] [phone] (30 min) Complex 04/25/2017 Patient [...] readings are starting to become less controlled. Zbaesw-zegcoaw-ufgxg labs 02/19/2017 Appointment: Karmen Espinal WPtel: [phone] [place] (30 min) Complex 02/19/2017 Patient Education: [...] Karmen Espinal WPtel: [phone] [place] (30 min) Complex 01/21/2017 Patient Education: Patient Medication Summary Completed 01/21/2017 Patient Education: Smoking and Tobacco Addiction Completed 01/21/2017 Patient Education: Hypertension Completed 01/21/2017 Care Plan: Referral Order SNOMED-CT : [id number] Pending 01/21/2017 Visit Plan: Diabetes Mellitus - [...] Karmen Espinal WPtel: [facility]7 [phone] (30 min) Complex 12/20/2016 Patient Education: Patient Medication Summary Completed 12/20/2016 Patient Education: Smoking and Tobacco Addiction Completed 12/20/2016 Patient Education: Hypertension Completed 12/20/2016 Appointment: Karmen Espinal WPtel: [phone] [phone] (30 min) Complex 09/06/2016 Visit Plan: Diabetes [...] Appointment: Karmen Espinal WPtel: [phone] [phone] (30 min) Complex 08/23/2016 Patient Education: Patient [...] Karmen Espinal WPtel: [phone] (30 min) Complex 05/22/2016 Patient Education: Patient Medication Summary Completed 05/22/2016 Patient Education: Smoking and Tobacco Addiction Completed 05/22/2016 Care Plan: Cbc With Differential Ordered 05/22/2016 Care Plan: %Hba1C LOIN C : 97695-4 Ordered 05/22/2016 Care Plan: Tsh Ordered 05/22/2016 [...] Karmen Espinal WPtel: [facility]5 [phone] [place] (30 min) Complex 02/24/2016 Patient Education: [...] this regimen. 01/27/2016 Appointment: Karmen Espinal WPtel: [address] [place], [place] [phone] [place] (30 min) Complex 01/27/2016 Patient Education: [...] Completed 05/06/2015 Visit Plan: COPD EXACERBATION - TAXATION CONSULTANT D is a chronic problem for [...] POTENTIAL SIDE EFFECTS AND WORSENING OF SYMPTOMS. Mpjeustg-moqnqrcj-YYQW SIMVASTATIN X 2 WEEKS AND CALL WITH [...] Care Plan: COMPLETE CBC AUTOMATED LOINC : 16949-1 Ordered 03/24/2015 Visit Plan: Diabetes Mellitus - [...] removal. 03/07/2015 Appointment: Violeta Ash WPtel: [address] [place], [place] [phone] (15 min) Moderate 03/07/2015 Patient Education: Patient [...] hearing. The wax was removed by the [facility] ctitioner due to the wax being [...] Care Plan: COMPLETE CBC AUTOMATED LOINC : 14851-9 Ordered 12/23/2014 Visit Plan: BPPV - Benign [...] next appt 12/09/2014 Appointment: Karmen Espinal WPtel: [address] [place], [place] [phone] [place] ([place]) New Patient 12/09/2014 Patient Education: Patient Medication Summary Completed 12/09/2014 Patient Education: .Amazing charts Parox ysmal positional vertigo Completed 12/09/2014 Patient Education: Smoking and Tobacco Addiction Completed 12/09/2014 [phone] [facility] [place] Referral Appointment Requested Referral: Luis Donohue [...] up in 1 month Miralax 1 packet laorn ry other day. If that causes loose [...] readings are starting to become less controlled. Gdyjfj-kwonifu-wtbxt labs . Cellulitis - start oral antibiotics [...] change in blood pressure readings at home. Xhozpnzd-mcrxcs-lejlh to see Dr Villatoro Constipation-start linzess daily [...] POTENTIAL SIDE EFFECTS AND WORSENING OF SYMPTOMS. Yrhsfehd-cyffsbjh-YXGS SIMVASTATIN X 2 WEEKS AND CALL WITH [...]
--- OUTSIDE RECORDS SUMMARY | 2020-03-29 09:03 | XMS REPORT | CCD ---
Author Author Dick Espinal Organization [facility] Address [address] [place] [address] Phone Care Team Providers Care Agency Service Representative Name Role Phone PP Unavailable CCM Unavailable Summary Purpose Interface Exchange Insurance Providers Payer name Policy type / Coverage type Covered alliance party ID Effective Begin Date Effective End Date WPS Medicare Part B Medicare Part B [id number] Unknown Unknown [employer] Medicar e Part B [id number] Unknown Unkn own Family history Father Diagnosis Age At Onset Cancer Unknown Mother Diagnosis Age At Onset Cancer Unknown Social History Social History Element Codes Description Effective Dates Marital status Unknown M arried 12/09/2014 Employment Unknown Retir ed 12/09/[address]: 98269297 Currently smokes tobacco 12/09/2014 Number of years using tobacco Unknown > 50 12/09/2014 Number of cigarettes/day Unknown 30 (Pack and a half) 12/09/[address]: 411969553 Never drinks alcohol 12/09/2014 Allergies, Adverse Reactions, [...] Fill Instructions lisinopril 10 mg tablet RxNorm: 427251 TAKE 1 TABLET BY MOUTH TWO TIMES DAILY 10/15/2018 10/09/2019 Ac tive - First Attempt Ref: [id number] testosterone cypiona te 200 mg/mL intramuscular oil RxNorm: 1237179 Milliliter(s) IM 10/14/2018 10/14/2018 In active Xanax 0.5 mg tablet RxNorm: 721496 1 Tablet(s) PO TID 10/03/2018 11/30/2018 Active testosterone cypiona te 200 mg/mL intramuscular oil RxNorm: 3411020 1/2 Milliliter(s) IM weekly 10/03/2018 01/30/2019 Active testosterone cypiona te 200 mg/mL intramuscular oil RxNorm: 2253335 Milliliter(s) IM 10/03/2018 10/03/2018 In active testosterone cypiona te 200 mg/mL intramuscular oil RxNorm: 1337844 Milliliter(s) IM 09/23/2018 09/23/2018 In active hydrocodone 5 mg-linh taminophen 325 mg tablet RxNorm: 362001 1 Tablet(s) PO Q6-8H as needed 09/22/2018 10/16/2018 Active testosterone cypiona te 200 mg/mL intramuscular oil RxNorm: 4637356 1/2 Milliliter(s) IM 09/02/2018 09/02/2018 Inactive testosterone enantha te 200 mg/mL intramuscular oil RxNorm: 082522 Milliliter(s) IM 08/21/2018 08/21/2018 In active hydrocodone 5 mg-linh taminophen 325 mg tablet RxNorm: 065717 1 Tablet(s) PO Q6-8H as needed 08/21/2018 09/14/2018 Inactive testosterone cypiona te 200 mg/mL intramuscular oil RxNorm: 7932744 Milliliter(s) IM 08/08/2018 08/08/2018 In active testosterone cypiona te 200 mg/mL intramuscular oil RxNorm: 7628899 1/2 Milliliter(s) IM 07/28/2018 07/28/2018 Inactive hydrocodone 5 mg-linh taminophen 325 mg tablet RxNorm: 940671 1 Tablet(s) PO Q6-8H as needed 07/21/2018 08/14/2018 Inactive testosterone cypiona te 200 mg/mL intramuscular oil RxNorm: 515882 Milliliter(s) IM 07/16/2018 07/16/2018 In active testosterone cypiona te 200 mg/mL intramuscular oil RxNorm: 600251 Milliliter(s) IM 07/02/2018 07/02/2018 In active Xanax 0.5 mg tablet RxNorm: 134465 1 Tablet(s) PO TID 06/27/2018 08/24/2018 Inactive testosterone cypiona te 200 mg/mL intramuscular oil RxNorm: 249484 Milliliter(s) IM 06/24/2018 06/24/2018 In active hydrocodone 5 mg-linh taminophen 325 mg tablet RxNorm: 235455 1 Tablet(s) PO Q6-8H as needed 06/23/2018 07/17/2018 Inactive testosterone cypiona te 200 mg/mL intramuscular oil RxNorm: 628724 Milliliter(s) IM 06/13/2018 06/13/2018 In active testosterone cypiona te 200 mg/mL intramuscular oil RxNorm: 865698 Milliliter(s) IM 06/05/2018 06/05/2018 In active testosterone cypiona te 200 mg/mL intramuscular oil RxNorm: 8899667 1/2 Milliliter(s) IM weekly 05/30/2018 09/26/2018 Inactive testosterone cypiona te 200 mg/mL intramuscular oil RxNorm: 014680 Milliliter(s) IM 05/30/2018 05/30/2018 In active testosterone cypiona te 200 mg/mL intramuscular oil RxNorm: 771125 Milliliter(s) IM 05/22/2018 05/22/2018 In active hydrocodone 5 mg-linh taminophen 325 mg tablet RxNorm: 623479 1 Tablet(s) PO Q6-8H as needed 05/20/2018 06/13/2018 Inactive testosterone cypiona te 200 mg/mL intramuscular oil RxNorm: 884356 1/2 Milliliter(s) IM 05/12/2018 05/12/2018 Inactive testosterone cypiona te 200 mg/mL intramuscular oil RxNorm: 000460 Milliliter(s) IM 05/02/2018 05/02/2018 In active testosterone cypiona te 200 mg/mL intramuscular oil RxNorm: 214772 1/2 Milliliter(s) IM weekly 04/24/2018 05/29/2018 Inactive testosterone cypiona te 200 mg/mL intramuscular oil RxNorm: 281227 0.5 Milliliter(s) IM 04/24/2018 04/24/2018 Inactive hydrocodone 5 mg-linh taminophen 325 mg tablet RxNorm: 697358 1 Tablet(s) PO Q6-8H as needed 04/22/2018 05/16/2018 Inactive testosterone cypiona te 200 mg/mL intramuscular oil RxNorm: 541574 1/2 Milliliter(s) IM 04/17/2018 04/17/2018 Inactive testosterone cypiona te 200 mg/mL intramuscular oil RxNorm: 307463 1/2 Milliliter(s) IM weekly 04/16/2018 04/23/2018 Inactive Jardiance 10 mg tablet RxNorm: 8901764 1 Tablet(s) PO daily 04/04/2018 12/29/2018 Active Protonix 40 mg table t,delayed release RxNorm: 771703 1 Tablet(s) PO daily TAKE 1 TABLET BY MOUTH DAILY 04/04/2018 03/29/2019 Active - Ref: [id number] testosterone cypiona te 200 mg/mL intramuscular oil RxNorm: 656154 1 Milliliter(s) IM monthly 04/04/2018 04/15/2018 Inactive hydrocodone 5 mg-linh taminophen 325 mg tablet RxNorm: 103657 1 Tablet(s) PO Q6-8H as needed 03/19/2018 04/12/2018 Inactive Flomax 0.4 mg capsule RxNorm: 150768 1 Capsule(s) PO daily 03/10/2018 03/04/2019 Active Urecholine 25 mg tablet RxNorm: 705385 1 Tablet(s) PO BID 03/10/2018 07/07/2018 Inactive ketorolac 60 mg/2 mL intramuscular solution RxNorm: 9846251 Milliliter(s) IM 03/07/2018 03/07/2018 In active metformin 500 mg tablet RxNorm: 042290 Tablet(s) TAKE 1 TABLET BY MOUTH DAILY 02/20/2018 02/14/2019 Ac tive 1 q am and 1/2 tab q pm hydrocodone 5 mg-linh taminophen 325 mg tablet RxNorm: 766539 1 Tablet(s) PO Q6-8H as needed 02/20/2018 03/16/2018 Inactive Kenalog 40 mg/mL bartolome pension for injection RxNorm: 6221621 1.5 Milliliter(s) In j 01/30/2018 01/30/2018 In active hydrocodone 5 mg-linh taminophen 325 mg tablet RxNorm: 931178 1 Tablet(s) PO Q6-8H as needed 01/23/2018 02/16/2018 Inactive Urecholine 25 mg tablet RxNorm: 793360 1 Tablet(s) PO BID 01/22/2018 03/09/2018 Inactive Flomax 0.4 mg capsule RxNorm: 417148 1 Capsule(s) PO daily 01/22/2018 03/09/2018 Inactive Flomax 0.4 mg capsule RxNorm: 770583 1 Capsule(s) PO daily 01/22/2018 01/21/2018 Inactive Urecholine 25 mg tablet RxNorm: 293886 1 Tablet(s) PO BID 01/22/2018 01/21/2018 Inactive testosterone cypiona te 200 mg/mL intramuscular oil RxNorm: 925183 Milliliter(s) IM 01/17/2018 01/17/2018 In active testosterone cypiona te 200 mg/mL intramuscular oil RxNorm: 254843 1 Milliliter(s) IM monthly 01/17/2018 04/03/2018 Inactive doxycycline hyclate 100 mg tablet RxNorm: 498117 1 Tablet(s) PO BID 01/14/2018 01/23/2018 Inactive lisinopril 10 mg tablet RxNorm: 393669 TAKE 1 TABLET BY MOUTH TWO TIMES DAILY 01/14/2018 10/14/2018 In active - First Attempt Ref: [id number] Xanax 0.5 mg tablet RxNorm: 189093 1 Tablet(s) PO TID 01/08/2018 04/06/2018 Inactive nystatin 100,000 uni t/mL oral suspension RxNorm: 518665 4 Milliliter(s) PO QI D Swish and swallow 01/08/2018 01/07/2018 Inactive nystatin 100,000 uni t/mL oral suspension RxNorm: 241339 4 Milliliter(s) PO QI D Swish and swallow 01/08/2018 01/12/2018 Inactive simvastatin 40 mg ta blet RxNorm: 496004 TAKE 1 TABLET BY MOUT H DAILY AT BEDTIME 12/30/2017 12/24/2018 Ac tive - First Attempt Ref: [id number] metformin 500 mg tablet RxNorm: 318287 TAKE 1 TABLET BY MOUTH DAILY 12/30/2017 02/19/2018 Inactive - First Attempt Ref: [id number] hydrocodone 5 mg-linh taminophen 325 mg tablet RxNorm: 038866 1 Tablet(s) PO Q6-8H as needed 12/25/2017 01/18/2018 Inactive Protonix 40 mg table t,delayed release RxNorm: 193248 Tablet(s) TAKE 1 TABL ET BY MOUTH DAILY 11/20/2017 04/03/2018 Inactive - Ref: [id number] Linzess 72 mcg capsule RxNorm: 2123977 1 Capsule(s) PO daily 11/19/2017 No Stop Date Active hydrocodone 5 mg-linh taminophen 325 mg tablet RxNorm: 457085 1 Tablet(s) PO Q6-8H as needed 11/19/2017 12/13/2017 Inactive hydrocodone 5 mg-linh taminophen 325 mg tablet RxNorm: 106377 1 Tablet(s) PO Q6-8H as needed 10/28/2017 11/18/2017 Inactive Xanax 0.5 mg tablet RxNorm: 808006 1 Tablet(s) PO TID 10/25/2017 12/22/2017 Inactive Xanax 0.5 mg tablet RxNorm: 222392 TAKE ONE TABLET BY MOUTH THREE TIMES A D AY 10/24/2017 12/22/2017 In active hydrocodone 5 mg-linh taminophen 325 mg tablet RxNorm: 090550 1 Tablet(s) PO Q6-8H as needed 09/30/2017 10/24/2017 Inactive Protonix 40 mg table t,delayed release RxNorm: 776707 TAKE 1 TABLET BY MOUT H DAILY 09/16/2017 11/19/2017 In active - Ref: [id number] Yovana Perkins 300 unit/mL (1.5 mL) subcutaneous insulin pen RxNorm: 2683736 35 Unit(s) SQ QHS 08/30/2017 No Stop Date Active dosage increase hydrocodone 5 mg-linh taminophen 325 mg tablet RxNorm: 338591 1 Tablet(s) PO Q6-8H as needed 08/28/2017 09/29/2017 Inactive hydrocodone 5 mg-linh taminophen 325 mg tablet RxNorm: 536913 1 Tablet(s) PO Q6-8H as needed 07/23/2017 08/24/2017 Inactive lisinopril 10 mg tablet RxNorm: 389969 1 Tablet(s) PO BID Take 1 tablet by mout h daily 07/23/2017 01/13/2018 Inactive hydrocodone 5 mg-linh taminophen 325 mg tablet RxNorm: 145074 1 Tablet(s) PO Q6-8H as needed 06/27/2017 07/22/2017 Inactive Xanax 0.5 mg tablet RxNorm: 973102 1 Tablet(s) PO TID 06/18/2017 10/25/2017 Inactive hydrocodone 5 mg-linh taminophen 325 mg tablet RxNorm: 922190 1 Tablet(s) PO Q6-8H as needed 05/27/2017 06/26/2017 Inactive Levaquin 500 mg tablet RxNorm: 077544 1 Tablet(s) PO daily 05/24/2017 05/23/2017 Inactive Levaquin 500 mg tablet RxNorm: 871580 1 Tablet(s) PO daily 05/24/2017 05/30/2017 Inactive Protonix 40 mg table t,delayed release RxNorm: 695291 Take 1 tablet by mout h daily 04/29/2017 09/15/2017 In active - Ref: [id number] hydrocodone 5 mg-linh taminophen 325 mg tablet RxNorm: 426010 1 Tablet(s) PO Q6-8H as needed 04/25/2017 05/26/2017 Inactive metformin 500 mg tablet RxNorm: 943763 Take 1 tablet by mouth daily 04/08/2017 12/29/2017 Inactive - First Attempt Ref: [id number] hydrocodone 5 mg-linh taminophen 325 mg tablet RxNorm: 560581 1 Tablet(s) PO Q6-8H as needed 03/27/2017 04/24/2017 Inactive hydrocodone 5 mg-linh taminophen 325 mg tablet RxNorm: 799132 1 Tablet(s) PO Q6-8H as needed 02/25/2017 03/26/2017 Inactive Protonix 40 mg table t,delayed release RxNorm: 052008 Tablet(s) Take 1 tabl et by mouth BID 02/25/2017 04/28/2017 Inactive Protonix 40 mg table t,delayed release RxNorm: 212617 Tablet(s) Take 1 tabl et by mouth BID 02/19/2017 02/18/2017 Inactive Protonix 40 mg table t,delayed release RxNorm: 925103 Tablet(s) Take 1 tabl et by mouth BID 02/19/2017 02/24/2017 Inactive lisinopril 10 mg tablet RxNorm: 644861 Take 1 tablet by mouth daily 01/29/2017 07/22/2017 Inactive - First Attempt Ref: [id number] hydrocodone 5 mg-linh taminophen 325 mg tablet RxNorm: 177575 1 Tablet(s) PO Q6-8H as needed 01/25/2017 02/24/2017 Inactive simvastatin 40 mg ta blet RxNorm: 038638 Tablet(s) Take 1 tabl et by mouth daily at bedtime 01/03/2017 12/28/2017 Inactive lisinopril 10 mg tablet RxNorm: 876005 Tablet(s) Take 1 tablet by mouth daily 01/03/2017 01/28/2017 In active Protonix 40 mg table t,delayed release RxNorm: 977226 Tablet(s) Take 1 tabl et by mouth daily 12/28/2016 02/18/2017 Inactive hydrocodone 5 mg-linh taminophen 325 mg tablet RxNorm: 773319 1 Tablet(s) PO Q6-8H as needed 12/26/2016 01/24/2017 Inactive Xanax 0.5 mg tablet RxNorm: 771430 1 Tablet(s) PO TID 12/12/2016 03/11/2017 Inactive simvastatin 40 mg ta blet RxNorm: 881266 Tablet(s) Take 1 tabl et by mouth daily at bedtime 11/30/2016 01/02/2017 Inactive simvastatin 40 mg ta blet RxNorm: 268355 Take 1 tablet by mout h daily at bedtime 11/29/2016 11/29/2016 In active - First Attempt Ref: [id number] Protonix 40 mg table t,delayed release RxNorm: 636351 Take 1 tablet by mout h daily 11/27/2016 12/27/2016 In active - First Attempt Ref: [id number] hydrocodone 5 mg-linh taminophen 325 mg tablet RxNorm: 081092 1 Tablet(s) PO Q6-8H as needed 11/26/2016 12/25/2016 Inactive hydrocodone 5 mg-linh taminophen 325 mg tablet RxNorm: 251917 1 Tablet(s) PO Q8 as needed 10/24/2016 11/25/2016 Inactive Xanax 0.5 mg tablet RxNorm: 496238 1 Tablet(s) PO TID 10/09/2016 12/25/2016 Inactive hydrocodone 5 mg-linh taminophen 325 mg tablet RxNorm: 748000 1 Tablet(s) PO Q8 as needed 09/27/2016 10/23/2016 Inactive lisinopril 10 mg tablet RxNorm: 544214 Take 1 tablet by mouth daily 09/25/2016 01/02/2017 Inactive - First Attempt Ref: [id number] Vitamin D2 50,000 un it capsule RxNorm: 849682 1 Capsule(s) PO QW 09/06/2016 No Stop Date Active hydrocodone 5 mg-linh taminophen 325 mg tablet RxNorm: 845359 1 Tablet(s) PO Q8 as needed 08/28/2016 09/26/2016 Inactive Toujeo SoloStar 300 unit/mL (1.5 mL) subcutaneous insulin pen RxNorm: 0785277 25 Unit(s) SQ QHS 08/23/2016 08/29/2017 Inactive dosage increase hydrocodone 5 mg-linh taminophen 325 mg tablet RxNorm: 074776 1 Tablet(s) PO Q8 as needed 07/26/2016 08/27/2016 Inactive Protonix 40 mg table t,delayed release RxNorm: 326239 Take 1 tablet by mout h daily 07/24/2016 11/26/2016 In active - First Attempt Ref: [id number] hydrocodone 5 mg-linh taminophen 325 mg tablet RxNorm: 415833 1 Tablet(s) PO Q8 as needed 06/19/2016 07/21/2016 Inactive Toujeo SoloStar 300 unit/mL (1.5 mL) subcutaneous insulin pen RxNorm: 2629277 32 Unit(s) SQ QHS 05/30/2016 08/22/2016 Inactive dosage increase hydrocodone 5 mg-linh taminophen 325 mg tablet RxNorm: 813888 1 Tablet(s) PO Q8 as needed 05/22/2016 06/18/2016 Inactive hydrocodone 5 mg-linh taminophen 325 mg tablet RxNorm: 587169 1 Tablet(s) PO Q8 as needed 04/18/2016 05/17/2016 Inactive Protonix 40 mg table t,delayed release RxNorm: 717140 Take 1 tablet by mout h daily 04/05/2016 07/03/2016 In active - Ref: [id number] metformin 500 mg tablet RxNorm: 675999 Take 1 tablet by mouth daily 04/04/2016 07/02/2016 Inactive - Ref: [id number] Xanax 0.5 mg tablet RxNorm: 408492 1 Tablet(s) PO TID 03/30/2016 09/25/2016 Inactive Xanax 0.5 mg tablet RxNorm: 270024 1 Tablet(s) PO TID 03/23/2016 12/25/2016 Inactive hydrocodone 5 mg-linh taminophen 325 mg tablet RxNorm: 225718 1 Tablet(s) PO Q8 as needed 03/06/2016 04/04/2016 Inactive Cipro 500 mg tablet RxNorm: 415172 1 Tablet(s) PO BID 02/24/2016 03/04/2016 Inactive Miralax 17 gram oral powder packet RxNorm: 631170 1 packet PO every oth er day 01/27/2016 No Stop Date Active hydrocodone 5 mg-linh taminophen 325 mg tablet RxNorm: 210949 1 Tablet(s) PO Q8 as needed 01/27/2016 02/25/2016 Inactive lisinopril 10 mg tablet RxNorm: 652844 1 Tablet(s) PO daily 01/12/2016 09/24/2016 Inactive simvastatin 40 mg ta blet RxNorm: 696497 1 Tablet(s) PO QHS 01/12/2016 11/28/2016 Inactive simvastatin 40 mg ta blet RxNorm: 174643 1 Tablet(s) PO QHS 01/11/2016 01/11/2016 Inactive lisinopril 10 mg tablet RxNorm: 022803 1 Tablet(s) PO daily 01/06/2016 01/11/2016 Inactive simvastatin 40 mg ta blet RxNorm: 802660 1 Tablet(s) PO daily 12/28/2015 01/10/2016 Inactive hydrocodone 5 mg-linh taminophen 325 mg tablet RxNorm: 868182 1 Tablet(s) PO Q8 as needed 12/27/2015 01/26/2016 Inactive Xanax 0.5 mg tablet RxNorm: 260797 1 Tablet(s) PO TID 11/30/2015 03/29/2016 Inactive meclizine 25 mg tablet RxNorm: 401055 1 Tablet(s) PO Q6 PRN TAKE ONE TABLET BY MOUTH EVERY 6 HOURS NEEDED 11/25/2015 02/22/2016 Inactive Toujeo SoloStar 300 unit/mL (1.5 mL) subcutaneous insulin pen RxNorm: 2532793 30 Unit(s) SQ QHS 11/25/2015 05/29/2016 Inactive dosage increase omeprazole 20 mg cap jacquelyn,delayed release RxNorm: 512936 1 Capsule(s) PO daily 10/06/2015 01/26/2016 In active Toujeo SoloStar 300 unit/mL (1.5 mL) subcutaneous insulin pen RxNorm: 5461553 35 Unit(s) SQ QHS 08/02/2015 11/24/2015 Inactive dosage increase Vitamin D2 50,000 un it capsule RxNorm: 920874 1 Capsule(s) PO QW 08/02/2015 09/05/2016 Inactive hydrocodone 5 mg-linh taminophen 325 mg tablet RxNorm: 108283 1 Tablet(s) PO Q8 as needed 07/11/2015 12/26/2015 Inactive Xanax 0.5 mg tablet RxNorm: 594478 1 Tablet(s) PO TID 06/30/2015 06/29/2015 Inactive Xanax 0.5 mg tablet RxNorm: 893379 1 Tablet(s) PO TID 06/30/2015 12/25/2015 Inactive hydrocodone 5 mg-linh taminophen 325 mg tablet RxNorm: 019312 1 Tablet(s) PO Q8 as needed 05/06/2015 07/10/2015 Inactive Symbicort 160 mcg-4. 5 mcg/actuation HFA aerosol inhaler RxNorm: 3233081 INH 04/25/2015 No Stop Date Active Levemir FlexTouch 10 0 unit/mL (3 mL) subcutaneous insulin pen RxNorm: 020573 30 Unit(s) SQ QHS 04/25/2015 11/24/2015 Inactive prednisone 20 mg tablet RxNorm: 361485 1 Tablet(s) PO BID 04/25/2015 04/29/2015 Inactive metformin 500 mg tablet RxNorm: 268628 1 Tablet(s) PO daily 04/25/2015 04/03/2016 Inactive amoxicillin 500 mg c apsule RxNorm: 636339 1 Capsule(s) PO TID 04/14/2015 04/13/2015 Inactive amoxicillin 500 mg c apsule RxNorm: 767730 1 Capsule(s) PO TID a nd recommend probiotic tid (otc) 04/14/2015 04/20/2015 Inactive Kenalog 40 mg/mL bartolome pension for injection RxNorm: 0623314 Milliliter(s) Inj 04/12/2015 04/12/2015 In active hydrocodone 5 mg-linh taminophen 325 mg tablet RxNorm: 008781 1 Tablet(s) PO Q8 as needed 03/30/2015 05/05/2015 Inactive Lantus 100 unit/mL s ubcutaneous solution RxNorm: 951261 25 Unit(s) SQ QPM 03/24/2015 04/25/2015 In active meclizine 25 mg tablet RxNorm: 998711 Tablet(s) TAKE ONE TABLET BY MOUTH EVERY 6 HOURS NEEDED 03/08/2015 04/06/2015 Inactive meclizine 25 mg tablet RxNorm: 589402 TAKE ONE TABLET BY MOUTH EVERY 6 HOURS A S NEEDED 02/25/2015 03/03/2015 Inactive Lantus 100 unit/mL s ubcutaneous solution RxNorm: 340170 20 Unit(s) SQ QPM 02/23/2015 03/23/2015 In active Lantus 100 unit/mL s ubcutaneous solution RxNorm: 797969 25 Unit(s) SQ QPM 02/23/2015 02/22/2015 In active hydrocodone 5 mg-linh taminophen 325 mg tablet RxNorm: 298540 1 Tablet(s) PO Q8 as needed 02/17/2015 03/29/2015 Inactive Xanax 0.5 mg tablet RxNorm: 169547 1 Tablet(s) PO TID 02/03/2015 06/29/2015 Inactive Lantus 100 unit/mL s ubcutaneous solution RxNorm: 715486 20 Unit(s) SQ QPM 12/29/2014 02/22/2015 In active Phenergan 12.5 mg re ctal suppository RxNorm: 115051 1 Suppository RTL Q6 PRN 12/23/2014 No Stop Date Active nausea Kenalog 40 mg/mL bartolome pension for injection RxNorm: 5583227 Milliliter(s) Inj 12/23/2014 12/23/2014 In active prednisone 20 mg tablet RxNorm: 939668 2 Tablet(s) PO daily 12/13/2014 12/17/2014 Inactive prednisone 20 mg tablet RxNorm: 293705 2 Tablet(s) PO daily 12/13/2014 12/12/2014 Inactive meclizine 25 mg tablet RxNorm: 923264 1 Tablet(s) PO Q6 PRN 12/09/2014 02/24/2015 Inactive hydrocodone 5 mg-linh taminophen 325 mg tablet RxNorm: 755677 1 Tablet(s) PO Q8 as needed 12/09/2014 02/16/2015 Inactive Vitamin B-12 1,000 m cg/mL oral drops RxNorm: 5647948 1 Milliliter(s) PO d aily No Start Date Active Alphagan P 0.1 % eye drops RxNorm: 204726 1 Drop(s) OPH BID No Start Date Active aspirin 325 mg table t,delayed release RxNorm: 552013 1 Tablet(s) PO daily No Start Date Active Tricor 145 mg tablet RxNorm: 889354 1 Tablet(s) PO daily No Start Date Active vitamin [id number] B1 oral liquid RxNorm: 1,000 Microgram(s) PO daily No Start Date Active atenolol 50 mg tablet RxNorm: 808965 1 Tablet(s) PO daily No Start Date Active Protonix 40 mg table t,delayed release RxNorm: 931563 1 Tablet(s) PO daily No Start Date 04/04/2016 Inactive glipizide 10 mg tablet RxNorm: 388918 1 Tablet(s) PO BID No Start Date 03/22/2015 Inactive Lantus 100 unit/mL s ubcutaneous solution RxNorm: 033970 15 Unit(s) SQ QPM No Start Date 12/28/2014 Inactive lisinopril 10 mg tablet RxNorm: 413004 1 Tablet(s) PO daily No Start Date 01/05/2016 Inactive Vitamin D2 50,000 un it capsule RxNorm: 163390 1 Capsule(s) PO QW No Start Date 08/01/2015 Inactive Toujeo SoloStar 300 unit/mL (1.5 mL) subcutaneous insulin pen RxNorm: 9795077 30 Unit(s) SQ QHS No Start Date 08/01/2015 Inactive simvastatin 40 mg ta blet RxNorm: 632979 1 Tablet(s) PO daily No Start Date 12/27/2015 Inactive testosterone cypiona te 200 mg/mL intramuscular oil RxNorm: 674280 1 Milliliter(s) IM monthly No Start Date 01/16/2018 Inactive hydrocodone 5 mg-linh taminophen 325 mg tablet RxNorm: 942295 1 Tablet(s) PO Q8 as needed No Start Date 12/08/2014 Inactive metformin 500 mg tablet RxNorm: 856117 1 Tablet(s) PO daily No Start Date 04/24/2015 Inactive omeprazole 20 mg cap jacquelyn,delayed release RxNorm: 034944 1 Capsule(s) PO daily No Start Date 10/05/2015 Inactive Flomax 0.4 mg capsule RxNorm: 868404 1 Capsule(s) PO daily No Start Date 03/23/2015 Inactive Medication Administered Medication Codes Instruc tions Start Date Status testosterone cypionate 200 mg/mL intramuscular oil RxNorm: 5866227 Milliliter 10/14/2018 No longer Active testosterone cypionate 200 mg/mL intramuscular oil RxNorm: 2845430 Milliliter 10/03/2018 No longer Active testosterone cypionate 200 mg/mL intramuscular oil RxNorm: 3212978 Milliliter 09/23/2018 No longer Active testosterone cypionate 200 mg/mL intramuscular oil RxNorm: 8147104 /2Milliliter 09/02/2018 No longer Active testosterone enanthate 200 mg/mL intramuscular oil RxNorm: 329549 Milliliter 08/21/2018 No longer Active testosterone cypionate 200 mg/mL intramuscular oil RxNorm: 3721026 Milliliter 08/08/2018 No longer Active testosterone cypionate 200 mg/mL intramuscular oil RxNorm: 6914920 /2Milliliter 07/28/2018 No longer Active testosterone cypionate 200 mg/mL intramuscular oil RxNorm: 394413 Milliliter 07/16/2018 No longer Active testosterone cypionate 200 mg/mL intramuscular oil RxNorm: 776503 Milliliter 07/02/2018 No longer Active testosterone cypionate 200 mg/mL intramuscular oil RxNorm: 887116 Milliliter 06/24/2018 No longer Active testosterone cypionate 200 mg/mL intramuscular oil RxNorm: 327537 Milliliter 06/13/2018 No longer Active testosterone cypionate 200 mg/mL intramuscular oil RxNorm: 066928 Milliliter 06/05/2018 No longer Active testosterone cypionate 200 mg/mL intramuscular oil RxNorm: 105765 Milliliter 05/30/2018 No longer Active testosterone cypionate 200 mg/mL intramuscular oil RxNorm: 880564 Milliliter 05/22/2018 No longer Active testosterone cypionate 200 mg/mL intramuscular oil RxNorm: 057999 1/2Milliliter 05/12/2018 No longer Active testosterone cypionate 200 mg/mL intramuscular oil RxNorm: 159364 Milliliter 05/02/2018 No longer Active testosterone cypionate 200 mg/mL intramuscular oil RxNorm: 653199 0.5Milliliter 04/24/2018 No longer Active testosterone cypionate 200 mg/mL intramuscular oil RxNorm: 620884 1/2Milliliter 04/17/2018 No longer Active ketorolac 60 mg/2 mL intramuscular solution RxNorm: 9324660 Milliliter 03/07/2018 No longer Active Kenalog 40 mg/mL suspension for injection RxNorm: 3194328 1.5Milliliter 01/30/2018 No longer Active testosterone cypionate 200 mg/mL intramuscular oil RxNorm: 559275 Milliliter 01/17/2018 No longer Active Kenalog 40 mg/mL suspension for injection RxNorm: 6952551 Milliliter 04/12/2015 No longer Active Kenalog 40 mg/mL suspension for injection RxNorm: 0939363 Milliliter 12/23/2014 No longer Active Immunizations Vaccine [...] Code Item Item Code Result Date Testosterone Sqn681 Testo 669.0 ng/dL 09/08/2018 %Hba1C Cpl366 % HbA1c 29009-5 7.4 % 09/08/2018 %Hba1C Ezt625 Gluc Ave 166 mg/dL 09/08/2018 Lipid Ord30 CHOL 114 mg/dL 09/08/2018 Lipid Ord30 HDL 28.0 mg/dl 09/08/2018 Lipid Ord30 TRIG 154 mg/dL 09/08/2018 Lipid Ord30 LDL 55 mg/dL 09/08/2018 Lipid Ord30 C/HDL 4.1 Ratio 09/08/2018 Comp Metabolic Zdk167 NA 137 mEq/L 09/08/2018 Comp Metabolic Yci627 K 4.3 mEq/L 09/08/2018 Comp Metabolic Aww046 CL 100 mEq/L 09/08/2018 Comp Metabolic Dvs162 CO2 27.0 mEq/L 09/08/2018 Comp Metabolic Zze864 AN ION GAP 14 09/08/2018 Comp Metabolic Xnf416 GL UCOSE 85 mg/dL 09/08/2018 Comp Metabolic Zwb234 Cr eat 1.1 mg/dL 09/08/2018 Comp Metabolic Bns451 eG FR 70 ml/min/1.73m2 09/08 Comp Metabolic Vzo574 BUN 11 mg/dL 09/08/2018 Comp Metabolic Lzw425 B/ C Ratio 10.3 Ratio 09/08/2018 Comp Metabolic Jhu334 CA LCIUM 9.2 mg/dL 09/08/2018 Comp Metabolic Qtp039 AL K PHOS 65 U/L 09/08/2018 Comp Metabolic Xgc138 T(SGOT) 16 U/L 09/08/2018 Comp Metabolic Vqh798 AL T(SGPT) 14 U/L 09/08/2018 Comp Metabolic Tnd494 BI LI T 0.6 mg/dL 09/08/2018 Comp Metabolic Gda857 AL BUMIN 4.0 g/dL 09/08/2018 Comp Metabolic Hfq417 TP RO 6.6 g/dL 09/08/2018 Comp Metabolic Xlt866 GL OB 2.6 g/dL 09/08/2018 Comp Metabolic Ttm682 A/ G Ratio 1.6 Ratio 09/08/2018 Comp Metabolic Vmv158 Os mo 272 mOsmo 09/08/2018 Vitamin D 25 Oh [id number] VITAMIN D, 25 HYDROXY 37.17 ng/mL 09/08/2018 [...] 33.3 pg 09/08/2018 Cbc With Differential Ord2 Wagoner% 8.1 % 09/08/2018 Cbc With Differential Ord2 [...] 2.44 K/ul 09/08/2018 Cbc With Differential Ord2 [place] ABS# 0.6 K/ul 09/08/2018 Cbc With Differential Ord2 Eos ABS# 0.3 K/ul 09/08/2018 Cbc With Differential Ord2 Baso ABS# 0.0 K/ul 09/08/2018 Tsh Ord6 TSH (3rd IS) 2.72 uIU/mL 09/08/2018 Comp Metabolic Cce567 NA 139 mEq/L 04/01/2018 Comp Metabolic Tkv955 K 4.2 mEq/L 04/01/2018 Comp Metabolic Tvr821 CL 102 mEq/L 04/01/2018 Comp Metabolic Yux657 CO2 29.0 mEq/L 04/01/2018 Comp Metabolic Ejf677 AN ION GAP 12 04/01/2018 Comp Metabolic Umk858 GL UCOSE 87 mg/dL 04/01/2018 Comp Metabolic Ltq924 Cr eat 1.1 mg/dL 04/01/2018 Comp Metabolic Tun174 eG FR 70 ml/min/1.73m2 04/01 Comp Metabolic Gzs198 BUN 21 mg/dL 04/01/2018 Comp Metabolic Jpe594 B/ C Ratio 19.4 Ratio 04/01/2018 Comp Metabolic Qje682 CA LCIUM 9.1 mg/dL 04/01/2018 Comp Metabolic Fkh178 AL K PHOS 60 U/L 04/01/2018 Comp Metabolic Hhv670 T(SGOT) 15 U/L 04/01/2018 Comp Metabolic Xzv551 AL T(SGPT) 18 U/L 04/01/2018 Comp Metabolic Nqy254 BI LI T 0.4 mg/dL 04/01/2018 Comp Metabolic Ebw230 AL BUMIN 4.0 g/dL 04/01/2018 Comp Metabolic Yem187 TP RO 6.5 g/dL 04/01/2018 Comp Metabolic Syd791 GL OB 2.5 g/dL 04/01/2018 Comp Metabolic Twz419 A/ G Ratio 1.6 Ratio 04/01/2018 Comp Metabolic Sgp737 Os mo 280 mOsmo 04/01/2018 Lipid Ord30 [...] 34.3 pg 04/01/2018 Cbc With Differential Ord2 Wagoner% 6.0 % 04/01/2018 Cbc With Differential Ord2 [...] 3.25 K/ul 04/01/2018 Cbc With Differential Ord2 [place] ABS# 0.6 K/ul 04/01/2018 Cbc With Differential Ord2 Eos ABS# 0.4 K/ul 04/01/2018 Cbc With Differential Ord2 Baso ABS# 0.0 K/ul 04/01/2018 %Hba1C Cas656 % HbA1c 86901-4 8.0 % 04/01/2018 %Hba1C Qnx803 Gluc Ave 183 mg/dL 04/01/2018 Testosterone Gfq857 Testo 111.3 ng/dL 04/01/2018 Testosterone Vfz837 Testo 135.4 ng/dL 01/14/2018 Cbc With Differential [...] 36.0 pg 01/14/2018 Cbc With Differential Ord2 Wagoner% 6.8 % 01/14/2018 Cbc With Differential Ord2 [...] 2.71 K/ul 01/14/2018 Cbc With Differential Ord2 [place] ABS# 0.8 K/ul 01/14/2018 Cbc With Differential Ord2 Eos ABS# 0.2 K/ul 01/14/2018 Cbc With Differential Ord2 Baso ABS# 0.0 K/ul 01/14/2018 Comp Metabolic Bjx525 NA 134 mEq/L 11/20/2017 Comp Metabolic Qlp045 K 4.4 mEq/L 11/20/2017 Comp Metabolic Qiv674 CL 99 mEq/L 11/20/2017 Comp Metabolic Qus285 CO2 29.0 mEq/L 11/20/2017 Comp Metabolic Ryo291 AN ION GAP 10 11/20/2017 Comp Metabolic Mtf492 GL UCOSE 218 mg/dL 11/20/2017 Comp Metabolic Kdg614 Cr eat 1.0 mg/dL 11/20/2017 Comp Metabolic Caf700 eG FR 78 ml/min/1.73m2 11/20 Comp Metabolic Qxd516 BUN 13 mg/dL 11/20/2017 Comp Metabolic Mnl634 B/ C Ratio 13.3 Ratio 11/20/2017 Comp Metabolic Wfc752 CA LCIUM 9.0 mg/dL 11/20/2017 Comp Metabolic Rjt666 AL K PHOS 71 U/L 11/20/2017 Comp Metabolic Ypi834 T(SGOT) 18 U/L 11/20/2017 Comp Metabolic Bbz112 AL T(SGPT) 17 U/L 11/20/2017 Comp Metabolic Weq339 BI LI T 0.4 mg/dL 11/20/2017 Comp Metabolic Tfq907 AL BUMIN 4.1 g/dL 11/20/2017 Comp Metabolic Hne052 TP RO 6.5 g/dL 11/20/2017 Comp Metabolic Aat386 GL OB 2.4 g/dL 11/20/2017 Comp Metabolic Kct725 A/ G Ratio 1.8 Ratio 11/20/2017 Comp Metabolic Qio161 Os mo 275 mOsmo 11/20/2017 Cbc With [...] 35.2 pg 11/20/2017 Cbc With Differential Ord2 Wagoner% 7.2 % 11/20/2017 Cbc With Differential Ord2 [...] 3.34 K/ul 11/20/2017 Cbc With Differential Ord2 [place] ABS# 0.6 K/ul 11/20/2017 Cbc With Differential Ord2 Eos ABS# 0.3 K/ul 11/20/2017 Cbc With Differential Ord2 Baso ABS# 0.0 K/ul 11/20/2017 Vitamin D 25 Oh Mni9663 VITAMIN D, 25 HYDROXY 43.72 ng/mL 11/20/2017 %Hba1C Tqz061 % HbA1c 63710-2 7.4 % 11/20/2017 %Hba1C Dsv105 Gluc Ave 166 mg/dL 11/20/2017 %Hba1C Opn861 % HbA1c 38157-5 7.2 % 08/20/2017 %Hba1C Fxk603 Gluc Ave 160 mg/dL 08/20/2017 Lipid Ord30 [...] 34.7 pg 08/20/2017 Cbc With Differential Ord2 Wagoner% 7.6 % 08/20/2017 Cbc With Differential Ord2 [...] 2.42 K/ul 08/20/2017 Cbc With Differential Ord2 [place] ABS# 0.6 K/ul 08/20/2017 Cbc With Differential Ord2 Eos ABS# 0.3 K/ul 08/20/2017 Cbc With Differential Ord2 Baso ABS# 0.0 K/ul 08/20/2017 Tsh Ord6 hTSH II 2.27 uIU/mL 08/20/2017 Comp Metabolic Gyd694 NA 138 mEq/L 08/20/2017 Comp Metabolic Oim380 K 4.3 mEq/L 08/20/2017 Comp Metabolic Ygu558 CL 102 mEq/L 08/20/2017 Comp Metabolic Dvz546 CO2 29.0 mEq/L 08/20/2017 Comp Metabolic Oaf238 AN ION GAP 11 08/20/2017 Comp Metabolic Brj076 GL UCOSE 89 mg/dL 08/20/2017 Comp Metabolic Cje618 Cr eat 1.0 mg/dL 08/20/2017 Comp Metabolic Aoy300 eG FR 80 ml/min/1.73m2 08/20 Comp Metabolic Sfo066 BUN 13 mg/dL 08/20/2017 Comp Metabolic Wab475 B/ C Ratio 13.5 Ratio 08/20/2017 Comp Metabolic Cop469 CA LCIUM 9.2 mg/dL 08/20/2017 Comp Metabolic Hua908 AL K PHOS 69 U/L 08/20/2017 Comp Metabolic Sjj523 T(SGOT) 18 U/L 08/20/2017 Comp Metabolic Lat854 AL T(SGPT) 19 U/L 08/20/2017 Comp Metabolic Gkv719 BI LI T 0.6 mg/dL 08/20/2017 Comp Metabolic Fgp738 AL BUMIN 4.0 g/dL 08/20/2017 Comp Metabolic Afq510 TP RO 6.6 g/dL 08/20/2017 Comp Metabolic Jca446 GL OB 2.6 g/dL 08/20/2017 Comp Metabolic Lkn572 A/ G Ratio 1.5 Ratio 08/20/2017 Comp Metabolic Fyq079 Os mo 275 mOsmo 08/20/2017 Vitamin D 25 Oh Fgd1817 VITAMIN D, 25 HYDROXY 30.96 ng/mL 08/20/2017 B12 Lfv481 B12 >1500.00 pg/ml 02/22/2017 Cbc With Differential [...] 35.7 pg 02/20/2017 Cbc With Differential Ord2 Wagoner% 6.3 % 02/20/2017 Cbc With Differential Ord2 [...] 3.19 K/ul 02/20/2017 Cbc With Differential Ord2 [place] ABS# 0.5 K/ul 02/20/2017 Cbc With Differential Ord2 Eos ABS# 0.4 K/ul 02/20/2017 Cbc With Differential Ord2 Baso ABS# 0.0 K/ul 02/20/2017 Comp Metabolic Huo589 NA 138 mEq/L 02/20/2017 Comp Metabolic Lqw257 K 4.5 mEq/L 02/20/2017 Comp Metabolic Aok797 CL 101 mEq/L 02/20/2017 Comp Metabolic Faj614 CO2 31.0 mEq/L 02/20/2017 Comp Metabolic Frx112 AN ION GAP 11 02/20/2017 Comp Metabolic Pir252 GL UCOSE 120 mg/dL 02/20/2017 Comp Metabolic Hbi270 Cr eat 0.9 mg/dL 02/20/2017 Comp Metabolic Egb248 eG FR 83 ml/min/1.73m2 02/20 Comp Metabolic Qlg810 BUN 15 mg/dL 02/20/2017 Comp Metabolic Cmp713 B/ C Ratio 16.1 Ratio 02/20/2017 Comp Metabolic Lzd436 CA LCIUM 9.1 mg/dL 02/20/2017 Comp Metabolic Oxn399 AL K PHOS 67 U/L 02/20/2017 Comp Metabolic Rqr763 T(SGOT) 15 U/L 02/20/2017 Comp Metabolic Jvi117 AL T(SGPT) 16 U/L 02/20/2017 Comp Metabolic Isi234 BI LI T 0.5 mg/dL 02/20/2017 Comp Metabolic Gzi216 AL BUMIN 4.0 g/dL 02/20/2017 Comp Metabolic Mjo409 TP RO 6.4 g/dL 02/20/2017 Comp Metabolic Avr305 GL OB 2.4 g/dL 02/20/2017 Comp Metabolic Ted515 A/ G Ratio 1.7 Ratio 02/20/2017 Comp Metabolic Xis712 Os mo 278 mOsmo 02/20/2017 Tsh Ord6 hTSH II 2.05 uIU/mL 02/20/2017 %Hba1C Hqv858 % HbA1c 97612-1 7.6 % 02/20/2017 %Hba1C Hju632 Gluc Ave 171 mg/dL 02/20/2017 Vitamin D 25 Oh Nnc8474 VITAMIN D, 25 HYDROXY 44.40 ng/mL 12/21/2016 Comp Metabolic Exu626 NA 131 mEq/L 12/21/2016 Comp Metabolic Cgx533 K 4.2 mEq/L 12/21/2016 Comp Metabolic Eai401 CL 97 mEq/L 12/21/2016 Comp Metabolic Syc466 CO2 27.0 mEq/L 12/21/2016 Comp Metabolic Bod728 AN ION GAP 11 12/21/2016 Comp Metabolic Hdz302 GL UCOSE 266 mg/dL 12/21/2016 Comp Metabolic Nyb239 Cr eat 0.9 mg/dL 12/21/2016 Comp Metabolic Lsa370 eG FR 88 ml/min/1.73m2 12/21 Comp Metabolic Pin252 BUN 12 mg/dL 12/21/2016 Comp Metabolic Gnw015 B/ C Ratio 13.6 Ratio 12/21/2016 Comp Metabolic Jkw632 CA LCIUM 8.6 mg/dL 12/21/2016 Comp Metabolic Fns340 AL K PHOS 69 U/L 12/21/2016 Comp Metabolic Byq941 T(SGOT) 15 U/L 12/21/2016 Comp Metabolic Tge298 AL T(SGPT) 14 U/L 12/21/2016 Comp Metabolic Zup550 BI LI T 0.3 mg/dL 12/21/2016 Comp Metabolic Ruq013 AL BUMIN 3.7 g/dL 12/21/2016 Comp Metabolic Ekd989 TP RO 5.9 g/dL 12/21/2016 Comp Metabolic Zdp424 GL OB 2.2 g/dL 12/21/2016 Comp Metabolic Lrs372 A/ G Ratio 1.7 Ratio 12/21/2016 Comp Metabolic Lim915 Os mo 272 mOsmo 12/21/2016 Cbc With [...] 34.6 pg 12/21/2016 Cbc With Differential Ord2 Wagoner% 6.9 % 12/21/2016 Cbc With Differential Ord2 [...] 2.05 K/ul 12/21/2016 Cbc With Differential Ord2 [place] ABS# 0.4 K/ul 12/21/2016 Cbc With Differential Ord2 Eos ABS# 0.2 K/ul 12/21/2016 Cbc With Differential Ord2 Baso ABS# 0.0 K/ul 12/21/2016 Comp Metabolic Lkb475 NA 138 mEq/L 09/03/2016 Comp Metabolic Cim576 K 4.5 mEq/L 09/03/2016 Comp Metabolic Adb227 CL 102 mEq/L 09/03/2016 Comp Metabolic Jmz191 CO2 30.0 mEq/L 09/03/2016 Comp Metabolic Yuk243 AN ION GAP 11 09/03/2016 Comp Metabolic Ava545 GL UCOSE 113 mg/dL 09/03/2016 Comp Metabolic Rpw459 Cr eat 1.0 mg/dL 09/03/2016 Comp Metabolic Eyz449 eG FR 81 ml/min/1.73m2 09/03 Comp Metabolic Lzs549 BUN 10 mg/dL 09/03/2016 Comp Metabolic Zzr915 B/ C Ratio 10.5 Ratio 09/03/2016 Comp Metabolic Uxh804 CA LCIUM 9.1 mg/dL 09/03/2016 Comp Metabolic Vwu102 AL K PHOS 71 U/L 09/03/2016 Comp Metabolic Ydo336 T(SGOT) 18 U/L 09/03/2016 Comp Metabolic Smr870 AL T(SGPT) 17 U/L 09/03/2016 Comp Metabolic Rjc875 BI LI T 0.6 mg/dL 09/03/2016 Comp Metabolic Tbj840 AL BUMIN 4.1 g/dL 09/03/2016 Comp Metabolic Jox825 TP RO 6.4 g/dL 09/03/2016 Comp Metabolic Ggo112 GL OB 2.3 g/dL 09/03/2016 Comp Metabolic Lfp512 A/ G Ratio 1.8 Ratio 09/03/2016 Comp Metabolic Rac182 Os mo 276 mOsmo 09/03/2016 Vitamin D 25 Oh Fxl9814 VITAMIN D, 25 HYDROXY 28.23 ng/mL 09/03/2016 [...] 34.4 pg 09/03/2016 Cbc With Differential Ord2 Wagoner% 8.9 % 09/03/2016 Cbc With Differential Ord2 [...] 3.34 K/ul 09/03/2016 Cbc With Differential Ord2 [place] ABS# 0.7 K/ul 09/03/2016 Cbc With Differential Ord2 Eos ABS# 0.4 K/ul 09/03/2016 Cbc With Differential Ord2 Baso ABS# 0.0 K/ul 09/03/2016 Lipid Ord30 CHOL 120 mg/dL 09/03/2016 Lipid Ord30 HDL 33.0 mg/dl 09/03/2016 Lipid Ord30 TRIG 161 mg/dL 09/03/2016 Lipid Ord30 LDL 55 mg/dL 09/03/2016 Lipid Ord30 C/HDL 3.6 Ratio 09/03/2016 %Hba1C Bda638 % HbA1c 68024-7 7.5 % 09/03/2016 %Hba1C Evi442 Gluc Ave 169 mg/dL 09/03/2016 Tsh Ord6 hTSH II 1.50 uIU/mL 05/23/2016 %Hba1C Ooz459 % HbA1c 44008-4 7.6 % 05/23/2016 %Hba1C Kcl147 Gluc Ave 171 mg/dL 05/23/2016 Comp Metabolic Usq024 NA 135 mEq/L 05/23/2016 Comp Metabolic Yrx568 K 4.4 mEq/L 05/23/2016 Comp Metabolic Gsf387 CL 99 mEq/L 05/23/2016 Comp Metabolic Zam586 CO2 28.0 mEq/L 05/23/2016 Comp Metabolic Ejo523 AN ION GAP 12 05/23/2016 Comp Metabolic Hwn787 GL UCOSE 257 mg/dL 05/23/2016 Comp Metabolic Qke970 Cr eat 0.8 mg/dL 05/23/2016 Comp Metabolic Pdd289 eG FR 95 ml/min/1.73m2 05/23 Comp Metabolic Tpe641 BUN 11 mg/dL 05/23/2016 Comp Metabolic Avk648 B/ C Ratio 13.3 Ratio 05/23/2016 Comp Metabolic Otr300 CA LCIUM 9.0 mg/dL 05/23/2016 Comp Metabolic Zwd375 AL K PHOS 82 U/L 05/23/2016 Comp Metabolic Okg116 T(SGOT) 21 U/L 05/23/2016 Comp Metabolic Ocu292 AL T(SGPT) 20 U/L 05/23/2016 Comp Metabolic Kgj493 BI LI T 0.3 mg/dL 05/23/2016 Comp Metabolic Cwv660 AL BUMIN 4.0 g/dL 05/23/2016 Comp Metabolic Enm511 TP RO 6.4 g/dL 05/23/2016 Comp Metabolic Cun955 GL OB 2.4 g/dL 05/23/2016 Comp Metabolic Rub412 A/ G Ratio 1.6 Ratio 05/23/2016 Comp Metabolic Fjg876 Os mo 278 mOsmo 05/23/2016 Cbc With [...] 34.5 pg 05/23/2016 Cbc With Differential Ord2 [place]agoner% 6.1 % 05/23/2016 Cbc With Differential Ord2 [...] 2.38 K/ul 05/23/2016 Cbc With Differential Ord2 [place] ABS# 0.4 K/ul 05/23/2016 Cbc With Differential Ord2 Eos ABS# 0.2 K/ul 05/23/2016 Cbc With Differential Ord2 Baso ABS# 0.0 K/ul 05/23/2016 B12 Sul956 B12 597.00 pg/ml 05/23/2016 Metabolic Ord15 NA [...] 0.92 uIU/mL 07/29/2015 Vitamin D 25 Oh Qfq7444 VITAMIN D, 25 HYDROXY 26.93 ng/mL 07/29/2015 %Hba1C Bdy761 % HbA1c 97330-3 8.8 % 07/29/2015 %Hba1C Qxa868 Gluc Ave 206 mg/dL 07/29/2015 Cbc With [...] Ord2 RDW 14.9 % 07/29/2015 Comp Metabolic Mkm272 NA 138 mEq/L 07/29/2015 Comp Metabolic Xto824 K 4.4 mEq/L 07/29/2015 Comp Metabolic Fxy587 CL 102 mEq/L 07/29/2015 Comp Metabolic Ozp716 CO2 28.0 mEq/L 07/29/2015 Comp Metabolic Axh907 AN ION GAP 12 07/29/2015 Comp Metabolic Lzn796 GL UCOSE 261 mg/dL 07/29/2015 Comp Metabolic Jte978 Cr eat 1.0 mg/dL 07/29/2015 Comp Metabolic Tee177 eG FR 77 ml/min/1.73m2 07/29 Comp Metabolic Fae914 BUN 13 mg/dL 07/29/2015 Comp Metabolic Rdu125 B/ C Ratio 13.0 Ratio 07/29/2015 Comp Metabolic Nun149 CA LCIUM 9.1 mg/dL 07/29/2015 Comp Metabolic Jge702 AL K PHOS 64 U/L 07/29/2015 Comp Metabolic Jtp164 T(SGOT) 20 U/L 07/29/2015 Comp Metabolic Zdz383 AL T(SGPT) 22 U/L 07/29/2015 Comp Metabolic Ozm237 BI LI T 0.4 mg/dL 07/29/2015 Comp Metabolic Qye329 AL BUMIN 4.0 g/dL 07/29/2015 Comp Metabolic Ktc258 TP RO 6.1 g/dL 07/29/2015 Comp Metabolic Teo826 GL OB 2.1 g/dL 07/29/2015 Comp Metabolic Hwb538 A/ G Ratio 1.9 Ratio 07/29/2015 Comp Metabolic Akb228 Os mo 285 mOsmo 07/29/2015 Cbc With [...] Ord2 RDW 13.1 % 05/06/2015 Comp Metabolic Zbn216 NA 134 mEq/L 05/06/2015 Comp Metabolic Cyw216 K 4.4 mEq/L 05/06/2015 Comp Metabolic Eqs650 CL 98 mEq/L 05/06/2015 Comp Metabolic Joi071 CO2 29.0 mEq/L 05/06/2015 Comp Metabolic Yrd013 AN ION GAP 11 05/06/2015 Comp Metabolic Rmb491 GL UCOSE 321 mg/dL 05/06/2015 Comp Metabolic Iwy874 Cr eat 1.0 mg/dL 05/06/2015 Comp Metabolic Kmw795 eG FR 78 ml/min/1.73m2 05/06 Comp Metabolic Gwx315 BUN 20 mg/dL 05/06/2015 Comp Metabolic Txq304 B/ C Ratio 20.4 Ratio 05/06/2015 Comp Metabolic Ixq974 CA LCIUM 9.5 mg/dL 05/06/2015 Comp Metabolic Pfx520 AL K PHOS 62 U/L 05/06/2015 Comp Metabolic Anm697 T(SGOT) 21 U/L 05/06/2015 Comp Metabolic Vjc206 AL T(SGPT) 37 U/L 05/06/2015 Comp Metabolic Wfi764 BI LI T 0.4 mg/dL 05/06/2015 Comp Metabolic Cij997 AL BUMIN 3.8 g/dL 05/06/2015 Comp Metabolic Mio708 TP RO 6.1 g/dL 05/06/2015 Comp Metabolic Wdd556 GL OB 2.3 g/dL 05/06/2015 Comp Metabolic Qsk993 A/ G Ratio 1.7 Ratio 05/06/2015 Comp Metabolic Cid576 Os mo 283 mOsmo 05/06/2015 Tsh Ord6 hTSH II 1.65 uIU/mL 02/18/2015 B12 Rxv890 B12 605.00 pg/ml 02/18/2015 %Hba1C Yld131 % HbA1c 40324-4 8.3 % 02/18/2015 %Hba1C Goy279 Gluc Ave 192 mg/dL 02/18/2015 Cbc With [...] Ord2 RDW 13.9 % 02/17/2015 Comp Metabolic Qxf812 NA 137 mEq/L 02/17/2015 Comp Metabolic Eoo479 K 4.4 mEq/L 02/17/2015 Comp Metabolic Klm286 CL 100 mEq/L 02/17/2015 Comp Metabolic Rnu880 CO2 31.0 mEq/L 02/17/2015 Comp Metabolic Jkq793 AN ION GAP 10 02/17/2015 Comp Metabolic Aic103 GL UCOSE 307 mg/dL 02/17/2015 Comp Metabolic Hzf151 Cr eat 1.0 mg/dL 02/17/2015 Comp Metabolic Gyx296 eG FR 74 ml/min/1.73m2 02/17 Comp Metabolic Ump716 BUN 22 mg/dL 02/17/2015 Comp Metabolic Pbv217 B/ C Ratio 21.4 Ratio 02/17/2015 Comp Metabolic Doq724 CA LCIUM 9.5 mg/dL 02/17/2015 Comp Metabolic Xof096 AL K PHOS 78 U/L 02/17/2015 Comp Metabolic Pvv973 T(SGOT) 18 U/L 02/17/2015 Comp Metabolic Roj811 AL T(SGPT) 32 U/L 02/17/2015 Comp Metabolic Irb198 BI LI T 0.5 mg/dL 02/17/2015 Comp Metabolic Zfo040 AL BUMIN 4.3 g/dL 02/17/2015 Comp Metabolic Jmw548 TP RO 6.7 g/dL 02/17/2015 Comp Metabolic Esh912 GL OB 2.4 g/dL 02/17/2015 Comp Metabolic Ovc876 A/ G Ratio 1.8 Ratio 02/17/2015 Comp Metabolic Duk955 Os mo 289 mOsmo 02/17/2015 Review of [...] Procedure Codes Date THER/PROPH/DIAG INJ SC/IM CPT-4: 96986 10/14/2018 THER/PROPH/DIAG INJ SC/IM CPT-4: 48345 10/03/2018 THER/PROPH/DIAG INJ SC/IM CPT-4: 57409 09/23/2018 THER/PROPH/DIAG INJ SC/IM CPT-4: 78451 09/02/2018 THER/PROPH/DIAG INJ SC/IM CPT-4: 68947 08/21/2018 THER/PROPH/DIAG INJ SC/IM CPT-4: 84877 08/08/2018 THER/PROPH/DIAG INJ SC/IM CPT-4: 68105 07/28/2018 THER/PROPH/DIAG INJ SC/IM CPT-4: 47440 07/16/2018 THER/PROPH/DIAG INJ SC/IM CPT-4: 35298 07/02/2018 PPPS, SUBSEQ VISIT CPT- 4: G0439 06/30/2018 THER/PROPH/DIAG INJ SC/IM CPT-4: 36305 06/24/2018 THER/PROPH/DIAG INJ SC/IM CPT-4: 95914 06/13/2018 ADMIN INFLUENZA VIRU S VAC CPT-4: G0008 06/06/2018 FLU VACC PRSV FREE I NC ANTIG CPT-4: 69164 06/06/2018 THER/PROPH/DIAG INJ SC/IM CPT-4: 47831 06/05/2018 THER/PROPH/DIAG INJ SC/IM CPT-4: 99670 05/30/2018 THER/PROPH/DIAG INJ SC/IM CPT-4: 86040 05/22/2018 THER/PROPH/DIAG INJ SC/IM CPT-4: 80896 05/12/2018 THER/PROPH/DIAG INJ SC/IM CPT-4: 61808 05/02/2018 THER/PROPH/DIAG INJ SC/IM CPT-4: 52822 04/24/2018 THER/PROPH/DIAG INJ SC/IM CPT-4: 05145 04/17/2018 KETOROLAC TROMETHAMI NE INJ CPT-4: J1885 03/07/2018 URINALYSIS NONAUTO W /O SCOPE CPT-4: 36079 03/07/2018 THER/PROPH/DIAG INJ SC/IM CPT-4: 88089 02/20/2018 TRIAMCINOLONE ACET I [place] NOS CPT-4: J3301 01/30/2018 THER/PROPH/DIAG INJ SC/IM CPT-4: 68209 01/17/2018 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 3-[address]: 363121000 CPT-4: G0436 04/25/2017 ADMIN INFLUENZA VIRU S VAC CPT-4: G0008 04/25/2017 ADMIN PNEUMOCOCCAL V ACCINE SNOMED CT: 30477478 CPT-4: G0009 04/25/2017 PNEUMOCOCCAL VACC [address]: 65070100 CPT-4: 31949 04/25/2017 FLU VACC PRSV FREE I NC ANTIG CPT-4: 04324 04/25/2017 ADMIN INFLUENZA VIRU S VAC CPT-4: G0008 05/22/2016 FLU VACC 4 TELLY 3 YRS PLUS IM Formatting Model/CDA Sections, Assigned to/Angela Clemons SNOMED CT: 51906753 CPT-4: 07516Xazlofz 05/22/2016 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 3-[address]: 580064609 CPT-4: G0436 11/25/2015 URINALYSIS NONAUTO W /O SCOPE CPT-4: 63046 05/09/2015 TRIAMCINOLONE ACET I [place] NOS CPT-4: J3301 04/12/2015 DESTRUCT PREMALG LESION CPT-4: 50661 03/07/2015 DESTRUCT PREMALG LES 2-14 CPT-4: 43756 03/07/2015 REMOVE IMPACTED EAR WAX UNI CPT-4: 62591 12/31/2014 THER/PROPH/DIAG INJ SC/IM CPT-4: 81499 12/23/2014 TRIAMCINOLONE ACET I [place] NOS CPT-4: J3301 12/23/2014 Vital Signs Date Vital 09/02/2018 Blood Pressure 1: 140/80 Code: 8480-6 BMI: 21.2 Code: 57038-7 Heart Rate 1: 68 bpm Height: 5'11" SpO2: 97% Weight: 152 lbs 06/30/2018 BMI: 21.8 Code: 39569-5 Height: 5'11" Weight: 156 lbs 06/06/2018 Blood Pressure 1: 128/76 Code: 8480-6 BMI: 22.0 Code: 72541-2 Heart Rate 1: 81 bpm Height: 5'11" SpO2: 92% Weight: 158 lbs 04/04/2018 Blood Pressure 1: 124/70 Code: 8480-6 BMI: 20.8 Code: 39574-4 Heart Rate 1: 65 bpm Height: 5'11" SpO2: 95% Weight: 149 lbs 03/07/2018 Blood Pressure 1: 148/70 Code: 8480-6 BMI: 21.2 Code: 00065-6 Heart Rate 1: 66 bpm Height: 5'11" SpO2: 94% Weight: 152 lbs 02/20/2018 Blood Pressure 1: 134/58 Code: 8480-6 BMI: 20.5 Code: 17959-5 Heart Rate 1: 61 bpm Height: 5'11" SpO2: 92% Weight: 147 lbs 01/30/2018 Blood Pressure 1: 158/68 Code: 8480-6 BMI: 21.5 Code: 98882-1 Heart Rate 1: 71 bpm Height: 5'11" SpO2: 92% Weight: 154 lbs 01/14/2018 Blood Pressure 1: 156/70 Code: 8480-6 Height: Weight: 01/13/2018 Blood Pressure 1: 148/62 Code: 8480-6 BMI: 20.9 Code: 12658-5 Heart Rate 1: 54 bpm Height: 5'11" SpO2: 97% Weight: 150 lbs 11/19/2017 Blood Pressure 1: 150/60 Code: 8480-6 BMI: 21.8 Code: 34078-6 Heart Rate 1: 63 bpm Height: 5'11" SpO2: 98% Weight: 156 lbs 10/02/2017 Blood Pressure 1: 168/60 Code: 8480-6 BMI: 21.9 Code: 15297-7 Heart Rate 1: 52 bpm Height: 5'11" SpO2: 97% Weight: 157 lbs 07/23/2017 Blood Pressure 1: 170/70 Code: 8480-6 BMI: 21.8 Code: 81870-9 Heart Rate 1: 65 bpm Height: 5'11" SpO2: 98% Weight: 156 lbs 04/25/2017 Blood Pressure 1: 138/60 Code: 8480-6 BMI: 21.6 Code: 08134-4 Heart Rate 1: 55 bpm Height: 5'11" SpO2: 93% Weight: 155 lbs 02/19/2017 Blood Pressure 1: 138/64 Code: 8480-6 BMI: 21.3 Code: 41432-6 Heart Rate 1: 52 bpm Height: 5'11" SpO2: 96% Weight: 152 lbs 8 oz 01/21/2017 Blood Pressure 1: 160/68 Code: 8480-6 BMI: 21.3 Code: 85589-0 Heart Rate 1: 62 bpm Height: 5'11" SpO2: 96% Weight: 153 lbs 12/20/2016 Blood Pressure 1: 124/66 Code: 8480-6 BMI: 21.5 Code: 38024-5 Height: 5'11" Weight: 154 lbs 08/23/2016 Blood Pressure 1: 142/52 Code: 8480-6 BMI: 21.2 Code: 29882-8 Heart Rate 1: 54 bpm Height: 5'11" SpO2: 96% Weight: 152 lbs 05/22/2016 Blood Pressure 1: 130/76 Code: 8480-6 BMI: 21.5 Code: 37375-8 Heart Rate 1: 78 bpm Height: 5'11" SpO2: 92% Weight: 154 lbs 02/24/2016 Blood Pressure 1: 128/80 Code: 8480-6 BMI: 21.2 Code: 92919-2 Heart Rate 1: 74 bpm Height: 5'11" SpO2: 96% Weight: 152 lbs 01/27/2016 Blood Pressure 1: 144/60 Code: 8480-6 BMI: 21.2 Code: 25158-9 Heart Rate 1: 74 bpm Height: 5'11" SpO2: 97% Weight: 152 lbs 11/25/2015 Blood Pressure 1: 110/52 Code: 8480-6 BMI: 21.9 Code: 18852-8 Heart Rate 1: 65 bpm Height: 5'11" SpO2: 92% Weight: 157 lbs 07/28/2015 Blood Pressure 1: 138/62 Code: 8480-6 BMI: 21.8 Code: 12557-7 Heart Rate 1: 63 bpm Height: 5'11" SpO2: 91% Weight: 156 lbs 05/26/2015 Blood Pressure 1: 120/58 Code: 8480-6 BMI: 21.5 Code: 48822-0 Heart Rate 1: 99 bpm Height: 5'11" SpO2: 96% Weight: 154 lbs 05/06/2015 Blood Pressure 1: 120/58 Code: 8480-6 BMI: 21.2 Code: 87841-0 Heart Rate 1: 66 bpm Height: 5'11" SpO2: 96% Weight: 152 lbs 04/25/2015 Blood Pressure 1: 136/62 Code: 8480-6 BMI: 21.2 Code: 06008-2 Heart Rate 1: 63 bpm Height: 5'11" SpO2: 97% Weight: 152 lbs 04/12/2015 Blood Pressure 1: 160/58 Code: 8480-6 BMI: 21.6 Code: 73361-4 Heart Rate 1: 62 bpm Height: 5'11" Weight: 155 lbs 03/24/2015 Blood Pressure 1: 138/68 Code: 8480-6 BMI: 22.0 Code: 39842-5 Heart Rate 1: 65 bpm Height: 5'11" SpO2: 96% Weight: 158 lbs 03/07/2015 Blood Pressure 1: 116/52 Code: 8480-6 BMI: 22.2 Code: 57955-3 Heart Rate 1: 64 bpm Height: 5'11" SpO2: 97% Weight: 159 lbs 02/17/2015 Blood Pressure 1: 148/58 Code: 8480-6 BMI: 21.3 Code: 36971-3 Heart Rate 1: 63 bpm Height: 5'11" SpO2: 97% Weight: 153 lbs 12/31/2014 Blood Pressure 1: 100/60 Code: 8480-6 BMI: 21.8 Code: 83096-3 Heart Rate 1: 68 bpm Height: 5'11" Weight: 156 lbs 12/23/2014 Blood Pressure 1: 148/64 Code: 8480-6 BMI: 21.9 Code: 16938-6 Heart Rate 1: 64 bpm Height: 5'11" [...] Encounters Encounter Performer Loca tion Codes Date ([id number]) [id number] EST. P ATIENT, LEVEL IV Diagnosis: Essential (primary) hypertension[ICD10: I10] Diagnosis: Chronic obstructive pulmonary disease, unspecified[ICD10: J44.9] Diagnosis: Type 2 diabetes mellitus with hyperglycemia[ICD10: E11.65] Diagnosis: Vitamin D deficiency, unspecified[ICD10: E55.9] Diagnosis: Mixed hyperlipidemia[ICD10: E78.2] Diagnosis: Testicular dysfunction, unspecified[ICD10: E29.9] [facility] CPT-4: 04712 09/02/2018 [id number]) [id number] EST. P ATIENT, LEVEL IV Diagnosis: Cellulitis of face[ICD10: L03.211] Diagnosis: Type 2 diabetes mellitus without complications[ICD10: E11.9] Diagnosis: Essential (primary) hypertension[ICD10: I10] Diagnosis: Encounter for immunization[ICD10: Z23] [facility] CPT-4: 77478 06/06/2018 [id number]) [id number] EST. P ATIENT, LEVEL IV Diagnosis: Essential (primary) hypertension[ICD10: I10] Diagnosis: Chronic obstructive pulmonary disease, unspecified[ICD10: J44.9] Diagnosis: Testicular dysfunction, unspecified[ICD10: E29.9] Diagnosis: Type 2 diabetes mellitus with hyperglycemia[ICD10: E11.65] [facility] CPT-4: 01108 04/04/2018 ([id number]) [id number] EST. P ATIENT, LEVEL III Diagnosis: Low back pain[ICD10: M54.5] Diagnosis: Dysuria[ICD10: R30.0] [facility], [facility] CPT-4: 84627 03/07/2018 ([id number]) [id number] EST. P ATIENT, LEVEL IV Diagnosis: Essential (primary) hypertension[ICD10: I10] Diagnosis: Chronic obstructive pulmonary disease, unspecified[ICD10: J44.9] Diagnosis: Abnormal weight loss[ICD10: R63.4] Diagnosis: Low back pain[ICD10: M54.5] Diagnosis: Testicular dysfunction, unspecified[ICD10: E29.9] Diagnosis: Type 2 diabetes mellitus with hyperglycemia[ICD10: E11.65] [facility] Ash MD, [facility] CPT-4: 02161 02/20/2018 ([id number]) 07712 EST. P ATIENT, LEVEL III Diagnosis: Chronic obstructive pulmonary disease with (acute) exacerbation[ICD10: J44.1] [facility]armen Ash MD, [facility] CPT-4: 31257 01/30/2018 [id number] EST. PATIENT, LEVEL II Diagnosis: Insect bite (nonvenomous), left lower leg, initial encounter[ICD10: S80.862A] [facility] Ash MD, [facility] CPT-4: 82784 01/14/2018 ([id number]) [id number] EST. P ATIENT, LEVEL IV Diagnosis: Type 2 diabetes mellitus with hyperglycemia[ICD10: E11.65] Diagnosis: Chronic obstructive pulmonary disease, unspecified[ICD10: J44.9] Diagnosis: Other fatigue[ICD10: R53.83] [facility] MD, [facility] CPT- 4: 86632 01/13/2018 ([id number]) 23425 EST. P ATIENT, LEVEL IV Diagnosis: Type 2 diabetes mellitus with hyperglycemia[ICD10: E11.65] Diagnosis: Vitamin D deficiency, unspecified[ICD10: E55.9] Diagnosis: Essential (primary) hypertension[ICD10: I10] Diagnosis: Abdominal distension (gaseous)[ICD10: R14.0] Diagnosis: Drug induced constipation[ICD10: K59.03] [facility]armen Ash MD, [facility] CPT-4: 61493 11/19/2017 [id number] EST. PATIENT, LEVEL IV Diagnosis: Low back pain[ICD10: M54.5] Diagnosis: Chronic obstructive pulmonary disease, unspecified[ICD10: J44.9] Brunilda Ash MD, [facility] CPT-4: 73602 10/02/2017 ([id number]) 18112 EST. P ATIENT, LEVEL IV Diagnosis: Essential (primary) hypertension[ICD10: I10] Diagnosis: Type 2 diabetes mellitus with hyperglycemia[ICD10: E11.65] Diagnosis: Vitamin D deficiency, unspecified[ICD10: E55.9] Diagnosis: Mixed hyperlipidemia[ICD10: E78.2] Karmen Ash MD, [facility] CPT-4: 97947 07/23/2017 ([id number]) 78081 EST. P ATIENT, LEVEL IV Diagnosis: Essential (primary) hypertension[ICD10: I10] Diagnosis: Type 2 diabetes mellitus with hyperglycemia[ICD10: E11.65] Diagnosis: Chronic obstructive pulmonary disease, unspecified[ICD10: J44.9] Diagnosis: Nicotine dependence, unspecified, uncomplicated[ICD10: F17.200] Diagnosis: Encounter for immunization[ICD10: Z23] Karmen Ash MD, [facility] CPT-4: 42425 04/25/2017 ([id number]) 78322 EST. P ATIENT, LEVEL IV Diagnosis: Type 2 diabetes mellitus with hyperglycemia[ICD10: E11.65] Diagnosis: Essential (primary) hypertension[ICD10: I10] Diagnosis: Anemia, unspecified[ICD10: D64.9] Karmen Ash MD, [facility] CPT- 4: 75109 02/19/2017 ([id number]) 45182 EST. P ATIENT, LEVEL IV Diagnosis: Slow transit constipation[ICD10: K59.01] Diagnosis: Gastro-esophageal reflux disease without esophagitis[ICD10: K21.9] Diagnosis: Essential (primary) hypertension[ICD10: I10] Karmen Ash MD, [facility] CPT-4: 32442 01/21/2017 ([id number]) 57452 EST. P ATIENT, LEVEL IV Diagnosis: Type 2 diabetes mellitus with hyperglycemia[ICD10: E11.65] Diagnosis: Vitamin D deficiency, unspecified[ICD10: E55.9] Diagnosis: Essential (primary) hypertension[ICD10: I10] Diagnosis: Chronic obstructive pulmonary disease, unspecified[ICD10: J44.9] Karmen Ash MD, [facility] CPT-4: 51544 12/20/2016 ([id number]) 89854 EST. P ATIENT, LEVEL IV Diagnosis: Type 2 diabetes mellitus with hyperglycemia[ICD10: E11.65] Diagnosis: Essential (primary) hypertension[ICD10: I10] Diagnosis: Mixed hyperlipidemia[ICD10: E78.2] Diagnosis: Vitamin D deficiency, unspecified[ICD10: E55.9] Karmen Ash MD, [facility] CPT-4: 74852 08/23/2016 ([id number]) 82669 EST. P ATIENT, LEVEL IV Diagnosis: Type 2 diabetes mellitus with hyperglycemia[ICD10: E11.65] Diagnosis: Essential (primary) hypertension[ICD10: I10] Diagnosis: Chronic obstructive pulmonary disease, unspecified[ICD10: J44.9] Karmen Ash MD, [facility] CPT-4: 90576 05/22/2016 ([id number]) 86961 EST. P ATIENT, LEVEL III Diagnosis: Dysuria[ICD10: R30.0] Diagnosis: Essential (primary) hypertension[ICD10: I10] Karmen Ash MD, [facility] CPT-4: 55975 02/24/2016 ([id number]) 82511 EST. P ATIENT, LEVEL IV Diagnosis: Gastro-esophageal reflux disease without esophagitis[ICD10: K21.9] Diagnosis: Slow transit constipation[ICD10: K59.01] Diagnosis: Type 2 diabetes mellitus with hyperglycemia[ICD10: E11.65] Karmen Ash MD, [facility] CPT-4: 47207 01/27/2016 ([id number]) 69007 EST. P ATIENT, LEVEL IV Diagnosis: Essential (primary) hypertension[ICD10: I10] Diagnosis: Type 2 diabetes mellitus with hyperglycemia[ICD10: E11.65] Diagnosis: Vitamin D deficiency, unspecified[ICD10: E55.9] Diagnosis: Chronic obstructive pulmonary disease, unspecified[ICD10: J44.9] Diagnosis: Mixed hyperlipidemia[ICD10: E78.2] Diagnosis: Tobacco use[ICD10: Z72.0] Karmen Ash MD, [facility] CPT- 4: 70628 11/25/2015 ([id number]) 33349 EST. P ATIENT, LEVEL IV Diagnosis: Type 2 diabetes mellitus with hyperglycemia[ICD10: E11.65] Diagnosis: Essential (primary) hypertension[ICD10: I10] Diagnosis: Vitamin D deficiency, unspecified[ICD10: E55.9] Karmen Ash MD, [facility] CPT-4: 07989 07/28/2015 ([id number]) 74928 EST. P ATIENT, LEVEL III Diagnosis: Type 2 diabetes mellitus with hyperglycemia[ICD10: E11.65] Diagnosis: Essential (primary) hypertension[ICD10: I10] Violeta Ash MD, [facility] CPT-4: 09489 05/26/2015 ([id number]) 49958 EST. P ATIENT, LEVEL III Diagnosis: DIABETES TYPE II[ICD9: 250.00] Diagnosis: COPD (chronic obstructive pulmonary disease)[ICD9: 496] Diagnosis: ESSENTIAL HYPERTENSION[ICD9: 401.9] Diagnosis: Cough[ICD9: 786.2] Violeta Ash MD, [facility] CPT-4: 25579 05/06/2015 ([id number]) 89587 EST. P ATIENT, LEVEL III Diagnosis: COPD (chronic obstructive pulmonary disease)[ICD9: 496] Diagnosis: DIABETES TYPE II[ICD9: 250.00] Diagnosis: Muscle ache[ICD9: 729.1] Karmen Ash MD, [facility] CPT- 4: 62554 04/25/2015 ([id number]) 96444 EST. P ATIENT, LEVEL III Diagnosis: ACTINIC KERATOSIS[ICD9: 702.0] Diagnosis: COPD (chronic obstructive pulmonary disease)[ICD9: 496] Diagnosis: DIABETES TYPE II[ICD9: 250.00] Diagnosis: ACUTE URI[ICD9: 465.9] Violeta Ash MD, [facility] CPT-4: 36962 04/12/2015 ([id number]) 23589 EST. P ATIENT, LEVEL III Diagnosis: DIABETES TYPE II[ICD9: 250.00] [facility] CPT-4: 00493 03/24/2015 ([id number]) 98684 EST. [facility] Diagnosis: DIABETES TYPE II[ICD9: 250.00] Diagnosis: Hypoglycemia[ICD9: 251.2] Diagnosis: Skin texture changes[ICD9: 782.8] [facility] CPT-4: 35226 03/07/2015 ([id number]) 33792 EST. [facility] Diagnosis: COPD (chronic obstructive pulmonary disease)[ICD9: 496] Diagnosis: Fatigue[ICD9: 780.79] Diagnosis: Insulin dependent diabetes mellitus[ICD9: 250.00] Diagnosis: Unsteady gait[ICD9: 781.2] Maame Ash MD, [facility] CPT-4: 15787 02/17/2015 ([id number]) 60414 EST. [facility] Diagnosis: BPPV (benign paroxysmal positional vertigo)[ICD9: 386.11] Diagnosis: Impacted cerumen[ICD9: 380.4] Diagnosis: ESSENTIAL HYPERTENSION[ICD9: 401.9] Diagnosis: Insulin dependent diabetes mellitus[ICD9: 250.00] Karmen Ash MD, [facility] CPT-4: 95163 12/23/2014 ([id number]) [facility] 4 Diagnosis: Insulin dependent diabetes mellitus[ICD9: 250.00] Diagnosis: BPPV (benign paroxysmal positional vertigo)[ICD9: 386.11] Diagnosis: COPD (chronic obstructive pulmonary disease)[ICD9: 496] Diagnosis: Tobacco abuse[ICD9: 305.1] Diagnosis: Osteoarthritis[ICD9: 715.90] [facility] CPT- 4: 20585 12/09/2014 Plan of Care Planned Activity Notes [...] to medications. 09/02/2018 Appointment: Karmen Espinal WPtel: [address] [place], [place] [phone] (15 min) Moderate 09/02/2018 Patient Education: Patient [...] care surrogate. 06/30/2018 Appointment: Karmen Espinal WPtel: [phone] [facility] - Annual Wellness Visit 06/30/2018 [...] in pain. 06/06/2018 Appointment: Karmen Espinal WPtel: [phone] (15 min) Moderate 06/06/2018 Patient Education: [...] months 04/04/2018 Appointment: Karmen Espinal WPtel: [phone] [phone] [place] (15 min) Moderate 04/04/2018 Patient Education: Patient Medication Summary Completed 04/04/2018 Care Plan: Cbc With Differential Pending 04/04/2018 Care Plan: Testosterone repeat in 2 months Pending 04/04/2018 Appointment: Karmen Espinal WPtel[facility] [phone] [phone] [place] (15 min) Moderate 03/25/2018 Visit Plan: Low back pain -history of kidney stone-UA negative today -increase fluids and call if pain does not resolve or if any worse. 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 01/30/2018 Appointment: Karmen Espinal WPtel: [phone] (15 min) Moderate 01/30/2018 Patient Education: Patient Medication Summary Completed 01/30/2018 Appointment: Karmen Espinal WPtel: [facility] [place] [address] (15 min) Moderate 01/28/2018 Appointment: [place] 01/17/2018 Patient Education: Patient Medication Summary Completed 01/17/2018 Visit Plan: Cellulitis - start oral antibiotics as directed, return to clinic as previously directed, call for acute change in symptoms, worsening redness, warmth, discharge. 01/14/2018 Appointment: Karmen Espinal WPtel: [facility] [place] [address] (10 min) Simple 01/14/2018 Patient Education: Patient [...] less controlled. 01/13/2018 Appointment: Karmen Espinal WPtel: [facility] [address] (15 min) Moderate 01/13/2018 Patient Education: Patient Medication Summary Completed 01/13/2018 Referral: Hugo Villatoro [facility]:[phone] Patient's informed. Referral info ned millergetachew. Completed 12/04/2017 Visit Plan: Diabetes Mellitus - [...] change in blood pressure readings at home. Jnxdkyqi-bltmdn-qvgzt to see Dr Villatoro Constipation-start linzess daily 11/19/2017 Appointment: Karmen Espinal WPtel: [address] [place] [address] (30 min) Complex 11/19/2017 Patient Education: Patient Medication Summary Completed 11/19/2017 Care Plan: Referral Order bloating, nausea SNOMED-CT : 923135738 Pending 11/19/2017 Visit Plan: Low back pain- [...] changes. 10/02/2017 Appointment: Brunilda Maravilla WPtel: [address] [place], [place] [address] (15 min) Moderate 10/02/2017 Patient Education: Patient [...] controlled. 07/23/2017 Appointment: Karmen Espinal WPtel: [phone] [phone] (30 min) Complex 07/23/2017 Patient Education: [...] pack/year history 04/25/2017 Appointment: Karmen Espinal WPtel: [phone] (30 min) [facility] 04/25/2017 Patient Education: Patient Medication Summary [...] readings are starting to become less controlled. Ssqtle-mjqkbsk-gvgwp labs 02/19/2017 Appointment: Karmen Espinal WPtel: [phone] [phone] (30 min) Complex 02/19/2017 Patient Education: [...] month 01/21/2017 Appointment: Karmen Espinal WPtel: [phone] [phone] (30 min) Complex 01/21/2017 Patient Education: Patient Medication Summary Completed 01/21/2017 Patient Education: Smoking and Tobacco Addiction Completed 01/21/2017 Patient Education: Hypertension Completed 01/21/2017 Care Plan: Referral Order SNOMED-CT : [id number] Pending 01/21/2017 Visit Plan: Diabetes Mellitus - [...] changes. 12/20/2016 Appointment: Karmen Espinal WPtel: [phone] [phone] (30 min) Complex 12/20/2016 Patient Education: Patient Medication Summary Completed 12/20/2016 Patient Education: Smoking and Tobacco Addiction Completed 12/20/2016 Patient Education: Hypertension Completed 12/20/2016 Appointment: Karemn Espinal WPtel: [phone] [phone] (30 min) Complex 09/06/2016 Visit [...] level 08/23/2016 Appointment: Karmen Espinal WPtel: [phone] [phone] (30 min) Complex 08/23/2016 Patient [...] acute changes. 05/22/2016 Appointment: Karmen Espinal WPtel: [address] [place], [place] [phone] (30 min) Complex 05/22/2016 Patient Education: Patient Medication Summary Completed 05/22/2016 Patient Education: Smoking and Tobacco Addiction Completed 05/22/2016 Care Plan: Cbc With Differential Ordered 05/22/2016 Care Plan: %Hba1C LOIN C : 18871-9 Ordered 05/22/2016 Care Plan: Tsh Ordered 05/22/2016 [...] with update 02/24/2016 Appointment: Karmen Espinal WPtel: [phone] (30 min) Complex 02/24/2016 Patient [...] this regimen. 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 Pugtmtku-jlexbolg-RBPP SIMVASTATIN X 2 WEEKS AND CALL WITH [...] Care Plan: COMPLETE CBC AUTOMATED LOINC : 23358-3 Ordered 03/24/2015 Visit Plan: Diabetes Mellitus - [...] for removal. 03/07/2015 Appointment: [facility]el[facility] (15 min) Moderate 03/07/2015 Patient Education: [...] Care Plan: COMPLETE CBC AUTOMATED LOINC : 82773-5 Ordered 12/23/2014 Visit Plan: BPPV - Benign [...] appt 12/09/2014 Appointment: Karmen Espinal WPtel: [phone] [phone] [place] ([place]) New Patient 12/09/2014 Patient Education: Patient Medication Summary Completed 12/09/2014 Patient Education: .Amazing charts Parox ysmal positional vertigo Completed 12/09/2014 Patient Education: Smoking and Tobacco Addiction Completed 12/09/2014 Referral: Hugo Villatoro HPtel:[phone] [facility] [place] Referral Appointment Requested Referral: Luis [...] readings are starting to become less controlled. Ygdlel-wfntwiu-ophqa labs . Cellulitis - start oral antibiotics [...] change in blood pressure readings at home. Dgdpqsfr-waiymp-xrlqo to see Dr Villatoro Constipation-start linzess daily [...] POTENTIAL SIDE EFFECTS AND WORSENING OF SYMPTOMS. Vvffjxxu-hnisdtyg-IQYK SIMVASTATIN X 2 WEEKS AND CALL WITH [...]
--- OUTSIDE RECORDS SUMMARY | 2020-03-29 09:06 | XMS REPORT | CCD ---
Author Author Dick Espinal Organization Violeta Ash MD, [facility] Address [address] [place] [address] Phone Care Team Providers Care Director Television News Name Role Phone PP Unavailable CCM Unavailable Summary Purpose Interface Exchange Insurance Providers Payer name Policy type / Coverage type Covered alliance party ID Effective Begin Date Effective End Date WPS Medicare Part B Medicare Part B [id number] Unknown Unknown [employer] Medicar e Part B [id number] Unknown Unkn own Family history Father Diagnosis Age At Onset Cancer Unknown Mother Diagnosis Age At Onset Cancer Unknown Social History Social History Element Codes Description Effective Dates Marital status Unknown M arried 12/09/2014 Employment Unknown Retir ed 12/09/[address]: 63789674 Currently smokes tobacco 12/09/2014 Number of years using tobacco Unknown > 50 12/09/2014 Number of cigarettes/day Unknown 30 (Pack and a half) 12/09/[address]: 023088850 Never drinks alcohol 12/09/2014 Allergies, Adverse Reactions, [...] Fill Instructions Xanax 0.5 mg tablet RxNorm: 646061 1 Tablet(s) PO TID 10/03/2018 12/01/2018 Active testosterone cypiona te 200 mg/mL intramuscular oil RxNorm: 2644085 1/2 Milliliter(s) IM weekly 10/03/2018 01/30/2019 Active testosterone cypiona te 200 mg/mL intramuscular oil RxNorm: 0683396 Milliliter(s) IM 10/03/2018 10/03/2018 In active testosterone cypiona te 200 mg/mL intramuscular oil RxNorm: 9007230 Milliliter(s) IM 09/23/2018 09/23/2018 In active hydrocodone 5 mg-linh taminophen 325 mg tablet RxNorm: 619133 1 Tablet(s) PO Q6-8H as needed 09/22/2018 10/16/2018 Active testosterone cypiona te 200 mg/mL intramuscular oil RxNorm: 4002316 1/2 Milliliter(s) IM 09/02/2018 09/02/2018 Inactive testosterone enantha te 200 mg/mL intramuscular oil RxNorm: 288359 Milliliter(s) IM 08/21/2018 08/21/2018 In active hydrocodone 5 mg-linh taminophen 325 mg tablet RxNorm: 448175 1 Tablet(s) PO Q6-8H as needed 08/21/2018 09/14/2018 Inactive testosterone cypiona te 200 mg/mL intramuscular oil RxNorm: 9527331 Milliliter(s) IM 08/08/2018 08/08/2018 In active testosterone cypiona te 200 mg/mL intramuscular oil RxNorm: 4439707 1/2 Milliliter(s) IM 07/28/2018 07/28/2018 Inactive hydrocodone 5 mg-linh taminophen 325 mg tablet RxNorm: 772105 1 Tablet(s) PO Q6-8H as needed 07/21/2018 08/14/2018 Inactive testosterone cypiona te 200 mg/mL intramuscular oil RxNorm: 062152 Milliliter(s) IM 07/16/2018 07/16/2018 In active testosterone cypiona te 200 mg/mL intramuscular oil RxNorm: 950961 Milliliter(s) IM 07/02/2018 07/02/2018 In active Xanax 0.5 mg tablet RxNorm: 509582 1 Tablet(s) PO TID 06/27/2018 08/24/2018 Inactive testosterone cypiona te 200 mg/mL intramuscular oil RxNorm: 204273 Milliliter(s) IM 06/24/2018 06/24/2018 In active hydrocodone 5 mg-linh taminophen 325 mg tablet RxNorm: 178345 1 Tablet(s) PO Q6-8H as needed 06/23/2018 07/17/2018 Inactive testosterone cypiona te 200 mg/mL intramuscular oil RxNorm: 569921 Milliliter(s) IM 06/13/2018 06/13/2018 In active testosterone cypiona te 200 mg/mL intramuscular oil RxNorm: 609281 Milliliter(s) IM 06/05/2018 06/05/2018 In active testosterone cypiona te 200 mg/mL intramuscular oil RxNorm: 0044245 1/2 Milliliter(s) IM weekly 05/30/2018 09/26/2018 Inactive testosterone cypiona te 200 mg/mL intramuscular oil RxNorm: 180130 Milliliter(s) IM 05/30/2018 05/30/2018 In active testosterone cypiona te 200 mg/mL intramuscular oil RxNorm: 870590 Milliliter(s) IM 05/22/2018 05/22/2018 In active hydrocodone 5 mg-linh taminophen 325 mg tablet RxNorm: 995394 1 Tablet(s) PO Q6-8H as needed 05/20/2018 06/13/2018 Inactive testosterone cypiona te 200 mg/mL intramuscular oil RxNorm: 105978 1/2 Milliliter(s) IM 05/12/2018 05/12/2018 Inactive testosterone cypiona te 200 mg/mL intramuscular oil RxNorm: 221129 Milliliter(s) IM 05/02/2018 05/02/2018 In active testosterone cypiona te 200 mg/mL intramuscular oil RxNorm: 990349 1/2 Milliliter(s) IM weekly 04/24/2018 05/29/2018 Inactive testosterone cypiona te 200 mg/mL intramuscular oil RxNorm: 103632 0.5 Milliliter(s) IM 04/24/2018 04/24/2018 Inactive hydrocodone 5 mg-linh taminophen 325 mg tablet RxNorm: 338332 1 Tablet(s) PO Q6-8H as needed 04/22/2018 05/16/2018 Inactive testosterone cypiona te 200 mg/mL intramuscular oil RxNorm: 008159 1/2 Milliliter(s) IM 04/17/2018 04/17/2018 Inactive testosterone cypiona te 200 mg/mL intramuscular oil RxNorm: 809337 1/2 Milliliter(s) IM weekly 04/16/2018 04/23/2018 Inactive Jardiance 10 mg tablet RxNorm: 6494007 1 Tablet(s) PO daily 04/04/2018 12/29/2018 Active Protonix 40 mg table t,delayed release RxNorm: 503747 1 Tablet(s) PO daily TAKE 1 TABLET BY MOUTH DAILY 04/04/2018 03/29/2019 Active - Ref: [id number] testosterone cypiona te 200 mg/mL intramuscular oil RxNorm: 302084 1 Milliliter(s) IM monthly 04/04/2018 04/15/2018 Inactive hydrocodone 5 mg-linh taminophen 325 mg tablet RxNorm: 652492 1 Tablet(s) PO Q6-8H as needed 03/19/2018 04/12/2018 Inactive Flomax 0.4 mg capsule RxNorm: 163605 1 Capsule(s) PO daily 03/10/2018 03/04/2019 Active Urecholine 25 mg tablet RxNorm: 850340 1 Tablet(s) PO BID 03/10/2018 07/07/2018 Inactive ketorolac 60 mg/2 mL intramuscular solution RxNorm: 9933427 Milliliter(s) IM 03/07/2018 03/07/2018 In active metformin 500 mg tablet RxNorm: 561628 Tablet(s) TAKE 1 TABLET BY MOUTH DAILY 02/20/2018 02/14/2019 Ac tive 1 q am and 1/2 tab q pm hydrocodone 5 mg-linh taminophen 325 mg tablet RxNorm: 446901 1 Tablet(s) PO Q6-8H as needed 02/20/2018 03/16/2018 Inactive Kenalog 40 mg/mL bartolome pension for injection RxNorm: 1805176 1.5 Milliliter(s) In j 01/30/2018 01/30/2018 In active hydrocodone 5 mg-linh taminophen 325 mg tablet RxNorm: 537994 1 Tablet(s) PO Q6-8H as needed 01/23/2018 02/16/2018 Inactive Urecholine 25 mg tablet RxNorm: 645804 1 Tablet(s) PO BID 01/22/2018 03/09/2018 Inactive Flomax 0.4 mg capsule RxNorm: 537746 1 Capsule(s) PO daily 01/22/2018 03/09/2018 Inactive Flomax 0.4 mg capsule RxNorm: 039679 1 Capsule(s) PO daily 01/22/2018 01/21/2018 Inactive Urecholine 25 mg tablet RxNorm: 290366 1 Tablet(s) PO BID 01/22/2018 01/21/2018 Inactive testosterone cypiona te 200 mg/mL intramuscular oil RxNorm: 964818 Milliliter(s) IM 01/17/2018 01/17/2018 In active testosterone cypiona te 200 mg/mL intramuscular oil RxNorm: 972516 1 Milliliter(s) IM monthly 01/17/2018 04/03/2018 Inactive lisinopril 10 mg tablet RxNorm: 847517 TAKE 1 TABLET BY MOUTH TWO TIMES DAILY 01/14/2018 01/08/2019 Ac tive - First Attempt Ref: [id number] doxycycline hyclate 100 mg tablet RxNorm: 946107 1 Tablet(s) PO BID 01/14/2018 01/23/2018 Inactive Xanax 0.5 mg tablet RxNorm: 138100 1 Tablet(s) PO TID 01/08/2018 04/06/2018 Inactive nystatin 100,000 uni t/mL oral suspension RxNorm: 613486 4 Milliliter(s) PO QI D Swish and swallow 01/08/2018 01/07/2018 Inactive nystatin 100,000 uni t/mL oral suspension RxNorm: 155294 4 Milliliter(s) PO QI D Swish and swallow 01/08/2018 01/12/2018 Inactive simvastatin 40 mg ta blet RxNorm: 279438 TAKE 1 TABLET BY MOUT H DAILY AT BEDTIME 12/30/2017 12/24/2018 Ac tive - First Attempt Ref: [id number] metformin 500 mg tablet RxNorm: 603214 TAKE 1 TABLET BY MOUTH DAILY 12/30/2017 02/19/2018 Inactive - First Attempt Ref: [id number] hydrocodone 5 mg-linh taminophen 325 mg tablet RxNorm: 608410 1 Tablet(s) PO Q6-8H as needed 12/25/2017 01/18/2018 Inactive Protonix 40 mg table t,delayed release RxNorm: 970892 Tablet(s) TAKE 1 TABL ET BY MOUTH DAILY 11/20/2017 04/03/2018 Inactive - Ref: [id number] Linzess 72 mcg capsule RxNorm: 3950360 1 Capsule(s) PO daily 11/19/2017 No Stop Date Active hydrocodone 5 mg-linh taminophen 325 mg tablet RxNorm: 539760 1 Tablet(s) PO Q6-8H as needed 11/19/2017 12/13/2017 Inactive hydrocodone 5 mg-linh taminophen 325 mg tablet RxNorm: 430230 1 Tablet(s) PO Q6-8H as needed 10/28/2017 11/18/2017 Inactive Xanax 0.5 mg tablet RxNorm: 959220 1 Tablet(s) PO TID 10/25/2017 12/22/2017 Inactive Xanax 0.5 mg tablet RxNorm: 808306 TAKE ONE TABLET BY MOUTH THREE TIMES A D AY 10/24/2017 12/22/2017 In active hydrocodone 5 mg-linh taminophen 325 mg tablet RxNorm: 856679 1 Tablet(s) PO Q6-8H as needed 09/30/2017 10/24/2017 Inactive Protonix 40 mg table t,delayed release RxNorm: 618989 TAKE 1 TABLET BY MOUT H DAILY 09/16/2017 11/19/2017 In active - Ref: [id number] Yovana Perkins 300 unit/mL (1.5 mL) subcutaneous insulin pen RxNorm: 9976080 35 Unit(s) SQ QHS 08/30/2017 No Stop Date Active dosage increase hydrocodone 5 mg-linh taminophen 325 mg tablet RxNorm: 912020 1 Tablet(s) PO Q6-8H as needed 08/28/2017 09/29/2017 Inactive hydrocodone 5 mg-linh taminophen 325 mg tablet RxNorm: 939025 1 Tablet(s) PO Q6-8H as needed 07/23/2017 08/24/2017 Inactive lisinopril 10 mg tablet RxNorm: 721151 1 Tablet(s) PO BID Take 1 tablet by mout h daily 07/23/2017 01/13/2018 Inactive hydrocodone 5 mg-linh taminophen 325 mg tablet RxNorm: 394099 1 Tablet(s) PO Q6-8H as needed 06/27/2017 07/22/2017 Inactive Xanax 0.5 mg tablet RxNorm: 393597 1 Tablet(s) PO TID 06/18/2017 10/25/2017 Inactive hydrocodone 5 mg-linh taminophen 325 mg tablet RxNorm: 289103 1 Tablet(s) PO Q6-8H as needed 05/27/2017 06/26/2017 Inactive Levaquin 500 mg tablet RxNorm: 442662 1 Tablet(s) PO daily 05/24/2017 05/23/2017 Inactive Levaquin 500 mg tablet RxNorm: 749424 1 Tablet(s) PO daily 05/24/2017 05/30/2017 Inactive Protonix 40 mg table t,delayed release RxNorm: 891057 Take 1 tablet by mout h daily 04/29/2017 09/15/2017 In active - Ref: [id number] hydrocodone 5 mg-linh taminophen 325 mg tablet RxNorm: 876387 1 Tablet(s) PO Q6-8H as needed 04/25/2017 05/26/2017 Inactive metformin 500 mg tablet RxNorm: 653045 Take 1 tablet by mouth daily 04/08/2017 12/29/2017 Inactive - First Attempt Ref: [id number] hydrocodone 5 mg-linh taminophen 325 mg tablet RxNorm: 626218 1 Tablet(s) PO Q6-8H as needed 03/27/2017 04/24/2017 Inactive hydrocodone 5 mg-linh taminophen 325 mg tablet RxNorm: 001446 1 Tablet(s) PO Q6-8H as needed 02/25/2017 03/26/2017 Inactive Protonix 40 mg table t,delayed release RxNorm: 915733 Tablet(s) Take 1 tabl et by mouth BID 02/25/2017 04/28/2017 Inactive Protonix 40 mg table t,delayed release RxNorm: 409888 Tablet(s) Take 1 tabl et by mouth BID 02/19/2017 02/18/2017 Inactive Protonix 40 mg table t,delayed release RxNorm: 487522 Tablet(s) Take 1 tabl et by mouth BID 02/19/2017 02/24/2017 Inactive lisinopril 10 mg tablet RxNorm: 378001 Take 1 tablet by mouth daily 01/29/2017 07/22/2017 Inactive - First Attempt Ref: [id number] hydrocodone 5 mg-linh taminophen 325 mg tablet RxNorm: 493489 1 Tablet(s) PO Q6-8H as needed 01/25/2017 02/24/2017 Inactive simvastatin 40 mg ta blet RxNorm: 862215 Tablet(s) Take 1 tabl et by mouth daily at bedtime 01/03/2017 12/28/2017 Inactive lisinopril 10 mg tablet RxNorm: 795898 Tablet(s) Take 1 tablet by mouth daily 01/03/2017 01/28/2017 In active Protonix 40 mg table t,delayed release RxNorm: 240718 Tablet(s) Take 1 tabl et by mouth daily 12/28/2016 02/18/2017 Inactive hydrocodone 5 mg-linh taminophen 325 mg tablet RxNorm: 562830 1 Tablet(s) PO Q6-8H as needed 12/26/2016 01/24/2017 Inactive Xanax 0.5 mg tablet RxNorm: 663554 1 Tablet(s) PO TID 12/12/2016 03/11/2017 Inactive simvastatin 40 mg ta blet RxNorm: 748586 Tablet(s) Take 1 tabl et by mouth daily at bedtime 11/30/2016 01/02/2017 Inactive simvastatin 40 mg ta blet RxNorm: 943429 Take 1 tablet by mout h daily at bedtime 11/29/2016 11/29/2016 In active - First Attempt Ref: [id number] Protonix 40 mg table t,delayed release RxNorm: 257147 Take 1 tablet by mout h daily 11/27/2016 12/27/2016 In active - First Attempt Ref: [id number] hydrocodone 5 mg-linh taminophen 325 mg tablet RxNorm: 120228 1 Tablet(s) PO Q6-8H as needed 11/26/2016 12/25/2016 Inactive hydrocodone 5 mg-linh taminophen 325 mg tablet RxNorm: 975925 1 Tablet(s) PO Q8 as needed 10/24/2016 11/25/2016 Inactive Xanax 0.5 mg tablet RxNorm: 169174 1 Tablet(s) PO TID 10/09/2016 12/25/2016 Inactive hydrocodone 5 mg-linh taminophen 325 mg tablet RxNorm: 487894 1 Tablet(s) PO Q8 as needed 09/27/2016 10/23/2016 Inactive lisinopril 10 mg tablet RxNorm: 823112 Take 1 tablet by mouth daily 09/25/2016 01/02/2017 Inactive - First Attempt Ref: [id number] Vitamin D2 50,000 un it capsule RxNorm: 714129 1 Capsule(s) PO QW 09/06/2016 No Stop Date Active hydrocodone 5 mg-linh taminophen 325 mg tablet RxNorm: 005674 1 Tablet(s) PO Q8 as needed 08/28/2016 09/26/2016 Inactive Toujeo SoloStar 300 unit/mL (1.5 mL) subcutaneous insulin pen RxNorm: 1260770 25 Unit(s) SQ QHS 08/23/2016 08/29/2017 Inactive dosage increase hydrocodone 5 mg-linh taminophen 325 mg tablet RxNorm: 652435 1 Tablet(s) PO Q8 as needed 07/26/2016 08/27/2016 Inactive Protonix 40 mg table t,delayed release RxNorm: 751735 Take 1 tablet by mout h daily 07/24/2016 11/26/2016 In active - First Attempt Ref: [id number] hydrocodone 5 mg-linh taminophen 325 mg tablet RxNorm: 491284 1 Tablet(s) PO Q8 as needed 06/19/2016 07/21/2016 Inactive Toujeo SoloStar 300 unit/mL (1.5 mL) subcutaneous insulin pen RxNorm: 4819945 32 Unit(s) SQ QHS 05/30/2016 08/22/2016 Inactive dosage increase hydrocodone 5 mg-linh taminophen 325 mg tablet RxNorm: 338617 1 Tablet(s) PO Q8 as needed 05/22/2016 06/18/2016 Inactive hydrocodone 5 mg-linh taminophen 325 mg tablet RxNorm: 565843 1 Tablet(s) PO Q8 as needed 04/18/2016 05/17/2016 Inactive Protonix 40 mg table t,delayed release RxNorm: 919357 Take 1 tablet by mout h daily 04/05/2016 07/03/2016 In active - Ref: [id number] metformin 500 mg tablet RxNorm: 702218 Take 1 tablet by mouth daily 04/04/2016 07/02/2016 Inactive - Ref: [id number] Xanax 0.5 mg tablet RxNorm: 911062 1 Tablet(s) PO TID 03/30/2016 09/25/2016 Inactive Xanax 0.5 mg tablet RxNorm: 730797 1 Tablet(s) PO TID 03/23/2016 12/25/2016 Inactive hydrocodone 5 mg-linh taminophen 325 mg tablet RxNorm: 510102 1 Tablet(s) PO Q8 as needed 03/06/2016 04/04/2016 Inactive Cipro 500 mg tablet RxNorm: 564094 1 Tablet(s) PO BID 02/24/2016 03/04/2016 Inactive Miralax 17 gram oral powder packet RxNorm: 032677 1 packet PO every oth er day 01/27/2016 No Stop Date Active hydrocodone 5 mg-linh taminophen 325 mg tablet RxNorm: 066385 1 Tablet(s) PO Q8 as needed 01/27/2016 02/25/2016 Inactive lisinopril 10 mg tablet RxNorm: 661106 1 Tablet(s) PO daily 01/12/2016 09/24/2016 Inactive simvastatin 40 mg ta blet RxNorm: 540703 1 Tablet(s) PO QHS 01/12/2016 11/28/2016 Inactive simvastatin 40 mg ta blet RxNorm: 272901 1 Tablet(s) PO QHS 01/11/2016 01/11/2016 Inactive lisinopril 10 mg tablet RxNorm: 435532 1 Tablet(s) PO daily 01/06/2016 01/11/2016 Inactive simvastatin 40 mg ta blet RxNorm: 946226 1 Tablet(s) PO daily 12/28/2015 01/10/2016 Inactive hydrocodone 5 mg-linh taminophen 325 mg tablet RxNorm: 272914 1 Tablet(s) PO Q8 as needed 12/27/2015 01/26/2016 Inactive Xanax 0.5 mg tablet RxNorm: 846527 1 Tablet(s) PO TID 11/30/2015 03/29/2016 Inactive meclizine 25 mg tablet RxNorm: 855138 1 Tablet(s) PO Q6 PRN TAKE ONE TABLET BY MOUTH EVERY 6 HOURS NEEDED 11/25/2015 02/22/2016 Inactive Toujeo SoloStar 300 unit/mL (1.5 mL) subcutaneous insulin pen RxNorm: 5210810 30 Unit(s) SQ QHS 11/25/2015 05/29/2016 Inactive dosage increase omeprazole 20 mg cap jacquelyn,delayed release RxNorm: 638004 1 Capsule(s) PO daily 10/06/2015 01/26/2016 In active Toujeo SoloStar 300 unit/mL (1.5 mL) subcutaneous insulin pen RxNorm: 7865623 35 Unit(s) SQ QHS 08/02/2015 11/24/2015 Inactive dosage increase Vitamin D2 50,000 un it capsule RxNorm: 436708 1 Capsule(s) PO QW 08/02/2015 09/05/2016 Inactive hydrocodone 5 mg-linh taminophen 325 mg tablet RxNorm: 927047 1 Tablet(s) PO Q8 as needed 07/11/2015 12/26/2015 Inactive Xanax 0.5 mg tablet RxNorm: 363513 1 Tablet(s) PO TID 06/30/2015 06/29/2015 Inactive Xanax 0.5 mg tablet RxNorm: 198935 1 Tablet(s) PO TID 06/30/2015 12/25/2015 Inactive hydrocodone 5 mg-linh taminophen 325 mg tablet RxNorm: 960319 1 Tablet(s) PO Q8 as needed 05/06/2015 07/10/2015 Inactive Symbicort 160 mcg-4. 5 mcg/actuation HFA aerosol inhaler RxNorm: 8924292 INH 04/25/2015 No Stop Date Active Levemir FlexTouch 10 0 unit/mL (3 mL) subcutaneous insulin pen RxNorm: 676415 30 Unit(s) SQ QHS 04/25/2015 11/24/2015 Inactive prednisone 20 mg tablet RxNorm: 375407 1 Tablet(s) PO BID 04/25/2015 04/29/2015 Inactive metformin 500 mg tablet RxNorm: 003331 1 Tablet(s) PO daily 04/25/2015 04/03/2016 Inactive amoxicillin 500 mg c apsule RxNorm: 155348 1 Capsule(s) PO TID 04/14/2015 04/13/2015 Inactive amoxicillin 500 mg c apsule RxNorm: 926649 1 Capsule(s) PO TID a nd recommend probiotic tid (otc) 04/14/2015 04/20/2015 Inactive Kenalog 40 mg/mL bartolome pension for injection RxNorm: 2914325 Milliliter(s) Inj 04/12/2015 04/12/2015 In active hydrocodone 5 mg-linh taminophen 325 mg tablet RxNorm: 315661 1 Tablet(s) PO Q8 as needed 03/30/2015 05/05/2015 Inactive Lantus 100 unit/mL s ubcutaneous solution RxNorm: 522249 25 Unit(s) SQ QPM 03/24/2015 04/25/2015 In active meclizine 25 mg tablet RxNorm: 272495 Tablet(s) TAKE ONE TABLET BY MOUTH EVERY 6 HOURS NEEDED 03/08/2015 04/06/2015 Inactive meclizine 25 mg tablet RxNorm: 597080 TAKE ONE TABLET BY MOUTH EVERY 6 HOURS A S NEEDED 02/25/2015 03/03/2015 Inactive Lantus 100 unit/mL s ubcutaneous solution RxNorm: 412172 20 Unit(s) SQ QPM 02/23/2015 03/23/2015 In active Lantus 100 unit/mL s ubcutaneous solution RxNorm: 914432 25 Unit(s) SQ QPM 02/23/2015 02/22/2015 In active hydrocodone 5 mg-linh taminophen 325 mg tablet RxNorm: 990411 1 Tablet(s) PO Q8 as needed 02/17/2015 03/29/2015 Inactive Xanax 0.5 mg tablet RxNorm: 823345 1 Tablet(s) PO TID 02/03/2015 06/29/2015 Inactive Lantus 100 unit/mL s ubcutaneous solution RxNorm: 346370 20 Unit(s) SQ QPM 12/29/2014 02/22/2015 In active Phenergan 12.5 mg re ctal suppository RxNorm: 826900 1 Suppository RTL Q6 PRN 12/23/2014 No Stop Date Active nausea Kenalog 40 mg/mL bartolome pension for injection RxNorm: 8015731 Milliliter(s) Inj 12/23/2014 12/23/2014 In active prednisone 20 mg tablet RxNorm: 703872 2 Tablet(s) PO daily 12/13/2014 12/17/2014 Inactive prednisone 20 mg tablet RxNorm: 131829 2 Tablet(s) PO daily 12/13/2014 12/12/2014 Inactive meclizine 25 mg tablet RxNorm: 382676 1 Tablet(s) PO Q6 PRN 12/09/2014 02/24/2015 Inactive hydrocodone 5 mg-linh taminophen 325 mg tablet RxNorm: 338394 1 Tablet(s) PO Q8 as needed 12/09/2014 02/16/2015 Inactive Vitamin B-12 1,000 m cg/mL oral drops RxNorm: 3957973 1 Milliliter(s) PO d aily No Start Date Active Alphagan P 0.1 % eye drops RxNorm: 163528 1 Drop(s) OPH BID No Start Date Active aspirin 325 mg table t,delayed release RxNorm: 494451 1 Tablet(s) PO daily No Start Date Active Tricor 145 mg tablet RxNorm: 848605 1 Tablet(s) PO daily No Start Date Active vitamin H25-gtybtet B1 oral liquid RxNorm: 1,000 Microgram(s) PO daily No Start Date Active atenolol 50 mg tablet RxNorm: 310090 1 Tablet(s) PO daily No Start Date Active Protonix 40 mg table t,delayed release RxNorm: 782308 1 Tablet(s) PO daily No Start Date 04/04/2016 Inactive glipizide 10 mg tablet RxNorm: 407793 1 Tablet(s) PO BID No Start Date 03/22/2015 Inactive Lantus 100 unit/mL s ubcutaneous solution RxNorm: 014158 15 Unit(s) SQ QPM No Start Date 12/28/2014 Inactive lisinopril 10 mg tablet RxNorm: 501993 1 Tablet(s) PO daily No Start Date 01/05/2016 Inactive Vitamin D2 50,000 un it capsule RxNorm: 179560 1 Capsule(s) PO QW No Start Date 08/01/2015 Inactive Toujeo SoloStar 300 unit/mL (1.5 mL) subcutaneous insulin pen RxNorm: 9873149 30 Unit(s) SQ QHS No Start Date 08/01/2015 Inactive simvastatin 40 mg ta blet RxNorm: 820281 1 Tablet(s) PO daily No Start Date 12/27/2015 Inactive testosterone cypiona te 200 mg/mL intramuscular oil RxNorm: 312780 1 Milliliter(s) IM monthly No Start Date 01/16/2018 Inactive hydrocodone 5 mg-linh taminophen 325 mg tablet RxNorm: 157835 1 Tablet(s) PO Q8 as needed No Start Date 12/08/2014 Inactive metformin 500 mg tablet RxNorm: 714471 1 Tablet(s) PO daily No Start Date 04/24/2015 Inactive omeprazole 20 mg cap jacquelyn,delayed release RxNorm: 561356 1 Capsule(s) PO daily No Start Date 10/05/2015 Inactive Flomax 0.4 mg capsule RxNorm: 438343 1 Capsule(s) PO daily No Start Date 03/23/2015 Inactive Medication Administered Medication Codes Instruc tions Start Date Status testosterone cypionate 200 mg/mL intramuscular oil RxNorm: 6347880 Milliliter 10/03/2018 Active testosterone cypionate 200 mg/mL intramuscular oil RxNorm: 7632525 Milliliter 09/23/2018 No longer Active testosterone cypionate 200 mg/mL intramuscular oil RxNorm: 4558233 /2Milliliter 09/02/2018 No longer Active testosterone enanthate 200 mg/mL intramuscular oil RxNorm: 956329 Milliliter 08/21/2018 No longer Active testosterone cypionate 200 mg/mL intramuscular oil RxNorm: 7309370 Milliliter 08/08/2018 No longer Active testosterone cypionate 200 mg/mL intramuscular oil RxNorm: 9885488 /2Milliliter 07/28/2018 No longer Active testosterone cypionate 200 mg/mL intramuscular oil RxNorm: 602294 Milliliter 07/16/2018 No longer Active testosterone cypionate 200 mg/mL intramuscular oil RxNorm: 491197 Milliliter 07/02/2018 No longer Active testosterone cypionate 200 mg/mL intramuscular oil RxNorm: 597964 Milliliter 06/24/2018 No longer Active testosterone cypionate 200 mg/mL intramuscular oil RxNorm: 949564 Milliliter 06/13/2018 No longer Active testosterone cypionate 200 mg/mL intramuscular oil RxNorm: 509336 Milliliter 06/05/2018 No longer Active testosterone cypionate 200 mg/mL intramuscular oil RxNorm: 867522 Milliliter 05/30/2018 No longer Active testosterone cypionate 200 mg/mL intramuscular oil RxNorm: 690435 Milliliter 05/22/2018 No longer Active testosterone cypionate 200 mg/mL intramuscular oil RxNorm: 488756 /2Milliliter 05/12/2018 No longer Active testosterone cypionate 200 mg/mL intramuscular oil RxNorm: 163364 Milliliter 05/02/2018 No longer Active testosterone cypionate 200 mg/mL intramuscular oil RxNorm: 461494 0.5Milliliter 04/24/2018 No longer Active testosterone cypionate 200 mg/mL intramuscular oil RxNorm: 426247 1/2Milliliter 04/17/2018 No longer Active ketorolac 60 mg/2 mL intramuscular solution RxNorm: 5642964 Milliliter 03/07/2018 No longer Active Kenalog 40 mg/mL suspension for injection RxNorm: 7850123 1.5Milliliter 01/30/2018 No longer Active testosterone cypionate 200 mg/mL intramuscular oil RxNorm: 743940 Milliliter 01/17/2018 No longer Active Kenalog 40 mg/mL suspension for injection RxNorm: 3814946 Milliliter 04/12/2015 No longer Active Kenalog 40 mg/mL suspension for injection RxNorm: 0022627 Milliliter 12/23/2014 No longer Active Immunizations Vaccine Codes Date Status Influenza CVX: 141 06/06 completed Influenza CVX: 141 04/25 completed Pneumococcal (Adult) CVX: 133 04/25/2017 completed Influenza CVX: 141 05/22 completed Assessments Condition Codes Effectiv e Dates Testicular dysfunction, unspecified ICD-10: E29.9 ICD-9: 257.9 10/03/2018 Mixed hyperlipidemia ICD-10: E78.2 ICD-9: 272.2 09/02/2018 [...] Code Item Item Code Result Date Testosterone Llo534 Testo 669.0 ng/dL 09/08/2018 %Hba1C Kds950 % HbA1c 58449-8 7.4 % 09/08/2018 %Hba1C Jbg002 Gluc Ave 166 mg/dL 09/08/2018 Lipid Ord30 CHOL 114 mg/dL 09/08/2018 Lipid Ord30 HDL 28.0 mg/dl 09/08/2018 Lipid Ord30 TRIG 154 mg/dL 09/08/2018 Lipid Ord30 LDL 55 mg/dL 09/08/2018 Lipid Ord30 C/HDL 4.1 Ratio 09/08/2018 Comp Metabolic Oyu739 NA 137 mEq/L 09/08/2018 Comp Metabolic Ltq616 K 4.3 mEq/L 09/08/2018 Comp Metabolic Apj725 CL 100 mEq/L 09/08/2018 Comp Metabolic Edy659 CO2 27.0 mEq/L 09/08/2018 Comp Metabolic Bbt529 AN ION GAP 14 09/08/2018 Comp Metabolic Wau273 GL UCOSE 85 mg/dL 09/08/2018 Comp Metabolic Dlv248 Cr eat 1.1 mg/dL 09/08/2018 Comp Metabolic Xuk993 eG FR 70 ml/min/1.73m2 09/08 Comp Metabolic Dob953 BUN 11 mg/dL 09/08/2018 Comp Metabolic Vmz117 B/ C Ratio 10.3 Ratio 09/08/2018 Comp Metabolic Gov606 CA LCIUM 9.2 mg/dL 09/08/2018 Comp Metabolic Nlx699 AL K PHOS 65 U/L 09/08/2018 Comp Metabolic Znj871 T(SGOT) 16 U/L 09/08/2018 Comp Metabolic Tda257 AL T(SGPT) 14 U/L 09/08/2018 Comp Metabolic Aes158 BI LI T 0.6 mg/dL 09/08/2018 Comp Metabolic Xio038 AL BUMIN 4.0 g/dL 09/08/2018 Comp Metabolic Wco696 TP RO 6.6 g/dL 09/08/2018 Comp Metabolic Nqt453 GL OB 2.6 g/dL 09/08/2018 Comp Metabolic Pob753 A/ G Ratio 1.6 Ratio 09/08/2018 Comp Metabolic Ure125 Os mo 272 mOsmo 09/08/2018 Vitamin D 25 Oh Cal0322 VITAMIN D, 25 HYDROXY 37.17 ng/mL 09/08/2018 [...] 33.3 pg 09/08/2018 Cbc With Differential Ord2 Isabela% 8.1 % 09/08/2018 Cbc With Differential Ord2 [...] 2.44 K/ul 09/08/2018 Cbc With Differential Ord2 Isabela ABS# 0.6 K/ul 09/08/2018 Cbc With Differential Ord2 Eos ABS# 0.3 K/ul 09/08/2018 Cbc With Differential Ord2 Baso ABS# 0.0 K/ul 09/08/2018 Tsh Ord6 TSH (3rd IS) 2.72 uIU/mL 09/08/2018 Comp Metabolic Qml562 NA 139 mEq/L 04/01/2018 Comp Metabolic Mey484 K 4.2 mEq/L 04/01/2018 Comp Metabolic Pwi507 CL 102 mEq/L 04/01/2018 Comp Metabolic Ngy841 CO2 29.0 mEq/L 04/01/2018 Comp Metabolic Svs224 AN ION GAP 12 04/01/2018 Comp Metabolic Kph317 GL UCOSE 87 mg/dL 04/01/2018 Comp Metabolic Bnn016 Cr eat 1.1 mg/dL 04/01/2018 Comp Metabolic Nuy266 eG FR 70 ml/min/1.73m2 04/01 Comp Metabolic Xeh351 BUN 21 mg/dL 04/01/2018 Comp Metabolic Vgb485 B/ C Ratio 19.4 Ratio 04/01/2018 Comp Metabolic Jme604 CA LCIUM 9.1 mg/dL 04/01/2018 Comp Metabolic Qcv363 AL K PHOS 60 U/L 04/01/2018 Comp Metabolic Wai815 T(SGOT) 15 U/L 04/01/2018 Comp Metabolic Beq391 AL T(SGPT) 18 U/L 04/01/2018 Comp Metabolic Rjb834 BI LI T 0.4 mg/dL 04/01/2018 Comp Metabolic Yjp621 AL BUMIN 4.0 g/dL 04/01/2018 Comp Metabolic Ton226 TP RO 6.5 g/dL 04/01/2018 Comp Metabolic Orq606 GL OB 2.5 g/dL 04/01/2018 Comp Metabolic Fyu776 A/ G Ratio 1.6 Ratio 04/01/2018 Comp Metabolic Yqf873 Os mo 280 mOsmo 04/01/2018 Lipid Ord30 CHOL 122 mg/dL 04/01/2018 Lipid Ord30 HDL 28.0 mg/dl 04/01/2018 Lipid Ord30 TRIG 180 mg/dL 04/01/2018 Lipid Ord30 LDL 58 mg/dL 04/01/2018 Lipid Ord30 C/HDL 4.4 Ratio 04/01/2018 Cbc With Differential Ord2 WBC 9.18 K/ul 04/01/2018 Cbc With Differential Ord2 RBC 3.70 M/ul 04/01/2018 Cbc With Differential Ord2 HGB 12.7 g/dl 04/01/2018 Cbc With Differential Ord2 Neut% 54.0 % 04/01/2018 Cbc With Differential Ord2 HCT 37.6 % 04/01/2018 Cbc With Differential Ord2 Lymph% 35.4 % 04/01/2018 Cbc With Differential Ord2 MCV 101.6 fl 04/01/2018 Cbc With Differential Ord2 Isabela% 6.0 % 04/01/2018 Cbc With Differential Ord2 MCH 34.3 pg 04/01/2018 Cbc With Differential Ord2 MCHC 33.8 pg 04/01/2018 Cbc With Differential Ord2 Eos% 4.5 % 04/01/2018 Cbc With Differential Ord2 PLT 213 K/ul 04/01/2018 Cbc With Differential Ord2 Baso% 0.1 % 04/01/2018 Cbc With Differential Ord2 RDW 13.8 % 04/01/2018 Cbc With Differential Ord2 Neut ABS# 4.96 K/ul 04/01/2018 Cbc With Differential Ord2 Lymph ABS# 3.25 K/ul 04/01/2018 Cbc With Differential Ord2 Isabela ABS# 0.6 K/ul 04/01/2018 Cbc With Differential Ord2 Eos ABS# 0.4 K/ul 04/01/2018 Cbc With Differential Ord2 Baso ABS# 0.0 K/ul 04/01/2018 %Hba1C Lwr639 % HbA1c 81482-2 8.0 % 04/01/2018 %Hba1C Msd020 Gluc Ave 183 mg/dL 04/01/2018 Testosterone Asx749 Testo 111.3 ng/dL 04/01/2018 Testosterone Cze516 Testo 135.4 ng/dL 01/14/2018 Cbc With Differential Ord2 WBC 12.03 K/ul 01/14/2018 Cbc With Differential Ord2 RBC 3.58 M/ul 01/14/2018 Cbc With Differential Ord2 HGB 12.9 g/dl 01/14/2018 Cbc With Differential Ord2 HCT 36.4 % 01/14/2018 Cbc With Differential Ord2 Neut% 68.6 % 01/14/2018 Cbc With Differential Ord2 Lymph% 22.5 % 01/14/2018 Cbc With Differential Ord2 MCV 101.7 fl 01/14/2018 Cbc With Differential Ord2 MCH 36.0 pg 01/14/2018 Cbc With Differential Ord2 Isabela% 6.8 % 01/14/2018 Cbc With Differential Ord2 MCHC 35.4 pg 01/14/2018 Cbc With Differential Ord2 Eos% 2.0 % 01/14/2018 Cbc With Differential Ord2 Baso% 0.1 % 01/14/2018 Cbc With Differential Ord2 PLT 263 K/ul 01/14/2018 Cbc With Differential Ord2 Neut ABS# 8.25 K/ul 01/14/2018 Cbc With Differential Ord2 RDW 13.3 % 01/14/2018 Cbc With Differential Ord2 Lymph ABS# 2.71 K/ul 01/14/2018 Cbc With Differential Ord2 Isabela ABS# 0.8 K/ul 01/14/2018 Cbc With Differential Ord2 Eos ABS# 0.2 K/ul 01/14/2018 Cbc With Differential Ord2 Baso ABS# 0.0 K/ul 01/14/2018 Comp Metabolic Uvb075 NA 134 mEq/L 11/20/2017 Comp Metabolic Khd900 K 4.4 mEq/L 11/20/2017 Comp Metabolic Nff970 CL 99 mEq/L 11/20/2017 Comp Metabolic Iij772 CO2 29.0 mEq/L 11/20/2017 Comp Metabolic Tvo849 AN ION GAP 10 11/20/2017 Comp Metabolic Egq848 GL UCOSE 218 mg/dL 11/20/2017 Comp Metabolic Lva489 Cr eat 1.0 mg/dL 11/20/2017 Comp Metabolic Xtt536 eG FR 78 ml/min/1.73m2 11/20 Comp Metabolic Jlp445 BUN 13 mg/dL 11/20/2017 Comp Metabolic Bjg476 B/ C Ratio 13.3 Ratio 11/20/2017 Comp Metabolic Vbu812 CA LCIUM 9.0 mg/dL 11/20/2017 Comp Metabolic Gcq585 AL K PHOS 71 U/L 11/20/2017 Comp Metabolic Ayb343 T(SGOT) 18 U/L 11/20/2017 Comp Metabolic Wlb717 AL T(SGPT) 17 U/L 11/20/2017 Comp Metabolic Rei968 BI LI T 0.4 mg/dL 11/20/2017 Comp Metabolic Pjz371 AL BUMIN 4.1 g/dL 11/20/2017 Comp Metabolic Tje468 TP RO 6.5 g/dL 11/20/2017 Comp Metabolic Fdg826 GL OB 2.4 g/dL 11/20/2017 Comp Metabolic Nar968 A/ G Ratio 1.8 Ratio 11/20/2017 Comp Metabolic Uxp882 Os mo 275 mOsmo 11/20/2017 Cbc With [...] 35.2 pg 11/20/2017 Cbc With Differential Ord2 Isabela% 7.2 % 11/20/2017 Cbc With Differential Ord2 MCHC 34.1 pg 11/20/2017 Cbc With Differential Ord2 Eos% 3.4 % 11/20/2017 Cbc With Differential Ord2 Baso% 0.2 % 11/20/2017 Cbc With Differential Ord2 PLT 211 K/ul 11/20/2017 Cbc With Differential Ord2 RDW 13.7 % 11/20/2017 Cbc With Differential Ord2 Neut ABS# 3.91 K/ul 11/20/2017 Cbc With Differential Ord2 Lymph ABS# 3.34 K/ul 11/20/2017 Cbc With Differential Ord2 Isabela ABS# 0.6 K/ul 11/20/2017 Cbc With Differential Ord2 Eos ABS# 0.3 K/ul 11/20/2017 Cbc With Differential Ord2 Baso ABS# 0.0 K/ul 11/20/2017 Vitamin D 25 Oh Dcv9831 VITAMIN D, 25 HYDROXY 43.72 ng/mL 11/20/2017 %Hba1C Rkd967 % HbA1c 24365-3 7.4 % 11/20/2017 %Hba1C Njg675 Gluc Ave 166 mg/dL 11/20/2017 %Hba1C Mdd221 % HbA1c 81848-2 7.2 % 08/20/2017 %Hba1C Gzc397 Gluc Ave 160 mg/dL 08/20/2017 Lipid Ord30 [...] 34.7 pg 08/20/2017 Cbc With Differential Ord2 Isabela% 7.6 % 08/20/2017 Cbc With Differential Ord2 MCHC 33.7 pg 08/20/2017 Cbc With Differential Ord2 Eos% 3.4 % 08/20/2017 Cbc With Differential Ord2 Baso% 0.2 % 08/20/2017 Cbc With Differential Ord2 PLT 215 K/ul 08/20/2017 Cbc With Differential Ord2 Neut ABS# 4.97 K/ul 08/20/2017 Cbc With Differential Ord2 RDW 14.0 % 08/20/2017 Cbc With Differential Ord2 Lymph ABS# 2.42 K/ul 08/20/2017 Cbc With Differential Ord2 Isabela ABS# 0.6 K/ul 08/20/2017 Cbc With Differential Ord2 Eos ABS# 0.3 K/ul 08/20/2017 Cbc With Differential Ord2 Baso ABS# 0.0 K/ul 08/20/2017 Tsh Ord6 hTSH II 2.27 uIU/mL 08/20/2017 Comp Metabolic Nkm061 NA 138 mEq/L 08/20/2017 Comp Metabolic Nad884 K 4.3 mEq/L 08/20/2017 Comp Metabolic Evr493 CL 102 mEq/L 08/20/2017 Comp Metabolic Tsl275 CO2 29.0 mEq/L 08/20/2017 Comp Metabolic Wzq489 AN ION GAP 11 08/20/2017 Comp Metabolic Ixh056 GL UCOSE 89 mg/dL 08/20/2017 Comp Metabolic Tzq629 Cr eat 1.0 mg/dL 08/20/2017 Comp Metabolic Hwa681 eG FR 80 ml/min/1.73m2 08/20 Comp Metabolic Cjy416 BUN 13 mg/dL 08/20/2017 Comp Metabolic Ajl743 B/ C Ratio 13.5 Ratio 08/20/2017 Comp Metabolic Aiu525 CA LCIUM 9.2 mg/dL 08/20/2017 Comp Metabolic Daj716 AL K PHOS 69 U/L 08/20/2017 Comp Metabolic Qtb962 T(SGOT) 18 U/L 08/20/2017 Comp Metabolic Eav031 AL T(SGPT) 19 U/L 08/20/2017 Comp Metabolic Csz041 BI LI T 0.6 mg/dL 08/20/2017 Comp Metabolic Ghw925 AL BUMIN 4.0 g/dL 08/20/2017 Comp Metabolic Jwh083 TP RO 6.6 g/dL 08/20/2017 Comp Metabolic Dcv566 GL OB 2.6 g/dL 08/20/2017 Comp Metabolic Qlt269 A/ G Ratio 1.5 Ratio 08/20/2017 Comp Metabolic Nwc215 Os mo 275 mOsmo 08/20/2017 Vitamin D 25 Oh Apt1133 VITAMIN D, 25 HYDROXY 30.96 ng/mL 08/20/2017 B12 Qnz703 B12 >1500.00 pg/ml 02/22/2017 Cbc With Differential [...] 35.7 pg 02/20/2017 Cbc With Differential Ord2 Isabela% 6.3 % 02/20/2017 Cbc With Differential Ord2 [...] 3.19 K/ul 02/20/2017 Cbc With Differential Ord2 Isabela ABS# 0.5 K/ul 02/20/2017 Cbc With Differential Ord2 Eos ABS# 0.4 K/ul 02/20/2017 Cbc With Differential Ord2 Baso ABS# 0.0 K/ul 02/20/2017 Comp Metabolic Kok050 NA 138 mEq/L 02/20/2017 Comp Metabolic Vcc419 K 4.5 mEq/L 02/20/2017 Comp Metabolic Fly284 CL 101 mEq/L 02/20/2017 Comp Metabolic Dyy752 CO2 31.0 mEq/L 02/20/2017 Comp Metabolic Uch166 AN ION GAP 11 02/20/2017 Comp Metabolic Prf968 GL UCOSE 120 mg/dL 02/20/2017 Comp Metabolic Udy036 Cr eat 0.9 mg/dL 02/20/2017 Comp Metabolic Qgi294 eG FR 83 ml/min/1.73m2 02/20 Comp Metabolic Tpw997 BUN 15 mg/dL 02/20/2017 Comp Metabolic Tya576 B/ C Ratio 16.1 Ratio 02/20/2017 Comp Metabolic Rhl371 CA LCIUM 9.1 mg/dL 02/20/2017 Comp Metabolic Xlz380 AL K PHOS 67 U/L 02/20/2017 Comp Metabolic Ktx972 T(SGOT) 15 U/L 02/20/2017 Comp Metabolic Uvr562 AL T(SGPT) 16 U/L 02/20/2017 Comp Metabolic Zbf376 BI LI T 0.5 mg/dL 02/20/2017 Comp Metabolic Hdk000 AL BUMIN 4.0 g/dL 02/20/2017 Comp Metabolic Uxb037 TP RO 6.4 g/dL 02/20/2017 Comp Metabolic Bro761 GL OB 2.4 g/dL 02/20/2017 Comp Metabolic Efy180 A/ G Ratio 1.7 Ratio 02/20/2017 Comp Metabolic Xgq980 Os mo 278 mOsmo 02/20/2017 Tsh Ord6 hTSH II 2.05 uIU/mL 02/20/2017 %Hba1C Red328 % HbA1c 85838-7 7.6 % 02/20/2017 %Hba1C Idr912 Gluc Ave 171 mg/dL 02/20/2017 Vitamin D 25 Oh Ano0229 VITAMIN D, 25 HYDROXY 44.40 ng/mL 12/21/2016 Comp Metabolic Bmj014 NA 131 mEq/L 12/21/2016 Comp Metabolic Zvp691 K 4.2 mEq/L 12/21/2016 Comp Metabolic Kva934 CL 97 mEq/L 12/21/2016 Comp Metabolic Php652 CO2 27.0 mEq/L 12/21/2016 Comp Metabolic Was112 AN ION GAP 11 12/21/2016 Comp Metabolic Nby515 GL UCOSE 266 mg/dL 12/21/2016 Comp Metabolic Wmu747 Cr eat 0.9 mg/dL 12/21/2016 Comp Metabolic Afz880 eG FR 88 ml/min/1.73m2 12/21 Comp Metabolic Jqu938 BUN 12 mg/dL 12/21/2016 Comp Metabolic Eed858 B/ C Ratio 13.6 Ratio 12/21/2016 Comp Metabolic Cnc567 CA LCIUM 8.6 mg/dL 12/21/2016 Comp Metabolic Wqg105 AL K PHOS 69 U/L 12/21/2016 Comp Metabolic Rdx289 T(SGOT) 15 U/L 12/21/2016 Comp Metabolic Chb309 AL T(SGPT) 14 U/L 12/21/2016 Comp Metabolic Nce083 BI LI T 0.3 mg/dL 12/21/2016 Comp Metabolic Zpa700 AL BUMIN 3.7 g/dL 12/21/2016 Comp Metabolic Nha752 TP RO 5.9 g/dL 12/21/2016 Comp Metabolic Nql334 GL OB 2.2 g/dL 12/21/2016 Comp Metabolic Stn894 A/ G Ratio 1.7 Ratio 12/21/2016 Comp Metabolic Tjs747 Os mo 272 mOsmo 12/21/2016 Cbc With [...] 100.9 fl 12/21/2016 Cbc With Differential Ord2 Isabela% 6.9 % 12/21/2016 Cbc With Differential Ord2 MCH 34.6 pg 12/21/2016 Cbc With Differential Ord2 MCHC 34.2 pg 12/21/2016 Cbc With Differential Ord2 Eos% 3.9 % 12/21/2016 Cbc With Differential Ord2 Baso% 0.4 % 12/21/2016 Cbc With Differential Ord2 PLT 187 K/ul 12/21/2016 Cbc With Differential Ord2 RDW 13.1 % 12/21/2016 Cbc With Differential Ord2 Neut ABS# 2.56 K/ul 12/21/2016 Cbc With Differential Ord2 Lymph ABS# 2.05 K/ul 12/21/2016 Cbc With Differential Ord2 Isabela ABS# 0.4 K/ul 12/21/2016 Cbc With Differential Ord2 Eos ABS# 0.2 K/ul 12/21/2016 Cbc With Differential Ord2 Baso ABS# 0.0 K/ul 12/21/2016 Comp Metabolic Jxs318 NA 138 mEq/L 09/03/2016 Comp Metabolic Kaj319 K 4.5 mEq/L 09/03/2016 Comp Metabolic Vox950 CL 102 mEq/L 09/03/2016 Comp Metabolic Apl418 CO2 30.0 mEq/L 09/03/2016 Comp Metabolic Zht250 AN ION GAP 11 09/03/2016 Comp Metabolic Kdn109 GL UCOSE 113 mg/dL 09/03/2016 Comp Metabolic Ftz850 Cr eat 1.0 mg/dL 09/03/2016 Comp Metabolic Qyu598 eG FR 81 ml/min/1.73m2 09/03 Comp Metabolic Zpn096 BUN 10 mg/dL 09/03/2016 Comp Metabolic Ynk886 B/ C Ratio 10.5 Ratio 09/03/2016 Comp Metabolic Cge002 CA LCIUM 9.1 mg/dL 09/03/2016 Comp Metabolic Lqa264 AL K PHOS 71 U/L 09/03/2016 Comp Metabolic Jbi666 T(SGOT) 18 U/L 09/03/2016 Comp Metabolic Dru773 AL T(SGPT) 17 U/L 09/03/2016 Comp Metabolic Iii632 BI LI T 0.6 mg/dL 09/03/2016 Comp Metabolic Mec108 AL BUMIN 4.1 g/dL 09/03/2016 Comp Metabolic Laj710 TP RO 6.4 g/dL 09/03/2016 Comp Metabolic Cfh136 GL OB 2.3 g/dL 09/03/2016 Comp Metabolic Jip792 A/ G Ratio 1.8 Ratio 09/03/2016 Comp Metabolic Wzg427 Os mo 276 mOsmo 09/03/2016 Vitamin D 25 Oh Glo3025 VITAMIN D, 25 HYDROXY 28.23 ng/mL 09/03/2016 [...] 34.4 pg 09/03/2016 Cbc With Differential Ord2 Isabela% 8.9 % 09/03/2016 Cbc With Differential Ord2 [...] 3.34 K/ul 09/03/2016 Cbc With Differential Ord2 Isabela ABS# 0.7 K/ul 09/03/2016 Cbc With Differential Ord2 Eos ABS# 0.4 K/ul 09/03/2016 Cbc With Differential Ord2 Baso ABS# 0.0 K/ul 09/03/2016 Lipid Ord30 CHOL 120 mg/dL 09/03/2016 Lipid Ord30 HDL 33.0 mg/dl 09/03/2016 Lipid Ord30 TRIG 161 mg/dL 09/03/2016 Lipid Ord30 LDL 55 mg/dL 09/03/2016 Lipid Ord30 C/HDL 3.6 Ratio 09/03/2016 %Hba1C Xuh362 % HbA1c 84164-0 7.5 % 09/03/2016 %Hba1C Igt903 Gluc Ave 169 mg/dL 09/03/2016 Tsh Ord6 hTSH II 1.50 uIU/mL 05/23/2016 %Hba1C Sbc517 % HbA1c 56172-3 7.6 % 05/23/2016 %Hba1C Cvs203 Gluc Ave 171 mg/dL 05/23/2016 Comp Metabolic Jya245 NA 135 mEq/L 05/23/2016 Comp Metabolic Qkz726 K 4.4 mEq/L 05/23/2016 Comp Metabolic Zzw726 CL 99 mEq/L 05/23/2016 Comp Metabolic Rns638 CO2 28.0 mEq/L 05/23/2016 Comp Metabolic Vkc636 AN ION GAP 12 05/23/2016 Comp Metabolic Cmt622 GL UCOSE 257 mg/dL 05/23/2016 Comp Metabolic Gjx125 Cr eat 0.8 mg/dL 05/23/2016 Comp Metabolic Rmn341 eG FR 95 ml/min/1.73m2 05/23 Comp Metabolic Atu155 BUN 11 mg/dL 05/23/2016 Comp Metabolic Llw479 B/ C Ratio 13.3 Ratio 05/23/2016 Comp Metabolic Bxh903 CA LCIUM 9.0 mg/dL 05/23/2016 Comp Metabolic Ovt355 AL K PHOS 82 U/L 05/23/2016 Comp Metabolic Zpi054 T(SGOT) 21 U/L 05/23/2016 Comp Metabolic Mzm716 AL T(SGPT) 20 U/L 05/23/2016 Comp Metabolic Dmb652 BI LI T 0.3 mg/dL 05/23/2016 Comp Metabolic Zts902 AL BUMIN 4.0 g/dL 05/23/2016 Comp Metabolic Ezd366 TP RO 6.4 g/dL 05/23/2016 Comp Metabolic Cpf242 GL OB 2.4 g/dL 05/23/2016 Comp Metabolic Arv783 A/ G Ratio 1.6 Ratio 05/23/2016 Comp Metabolic Wrn409 Os mo 278 mOsmo 05/23/2016 Cbc With [...] 34.5 pg 05/23/2016 Cbc With Differential Ord2 Isabela% 6.1 % 05/23/2016 Cbc With Differential Ord2 [...] 2.38 K/ul 05/23/2016 Cbc With Differential Ord2 Isabela ABS# 0.4 K/ul 05/23/2016 Cbc With Differential Ord2 Eos ABS# 0.2 K/ul 05/23/2016 Cbc With Differential Ord2 Baso ABS# 0.0 K/ul 05/23/2016 B12 Jlw437 B12 597.00 pg/ml 05/23/2016 Metabolic Ord15 NA [...] 0.92 uIU/mL 07/29/2015 Vitamin D 25 Oh Lvc0395 VITAMIN D, 25 HYDROXY 26.93 ng/mL 07/29/2015 %Hba1C Hyw039 % HbA1c 59552-6 8.8 % 07/29/2015 %Hba1C Hck063 Gluc Ave 206 mg/dL 07/29/2015 Cbc With [...] Ord2 RDW 14.9 % 07/29/2015 Comp Metabolic Unv058 NA 138 mEq/L 07/29/2015 Comp Metabolic Iut220 K 4.4 mEq/L 07/29/2015 Comp Metabolic Ypd986 CL 102 mEq/L 07/29/2015 Comp Metabolic Mwt687 CO2 28.0 mEq/L 07/29/2015 Comp Metabolic Kjq808 AN ION GAP 12 07/29/2015 Comp Metabolic Alr132 GL UCOSE 261 mg/dL 07/29/2015 Comp Metabolic Qut022 Cr eat 1.0 mg/dL 07/29/2015 Comp Metabolic Adx186 eG FR 77 ml/min/1.73m2 07/29 Comp Metabolic Xfp874 BUN 13 mg/dL 07/29/2015 Comp Metabolic Kwp644 B/ C Ratio 13.0 Ratio 07/29/2015 Comp Metabolic Ped606 CA LCIUM 9.1 mg/dL 07/29/2015 Comp Metabolic Loo919 AL K PHOS 64 U/L 07/29/2015 Comp Metabolic Wrt593 T(SGOT) 20 U/L 07/29/2015 Comp Metabolic Mta327 AL T(SGPT) 22 U/L 07/29/2015 Comp Metabolic Emh687 BI LI T 0.4 mg/dL 07/29/2015 Comp Metabolic Qww076 AL BUMIN 4.0 g/dL 07/29/2015 Comp Metabolic Fij071 TP RO 6.1 g/dL 07/29/2015 Comp Metabolic Jfx903 GL OB 2.1 g/dL 07/29/2015 Comp Metabolic Tlf607 A/ G Ratio 1.9 Ratio 07/29/2015 Comp Metabolic Zqa705 Os mo 285 mOsmo 07/29/2015 Cbc With [...] Ord2 RDW 13.1 % 05/06/2015 Comp Metabolic Hcd211 NA 134 mEq/L 05/06/2015 Comp Metabolic Lcs772 K 4.4 mEq/L 05/06/2015 Comp Metabolic Rkl053 CL 98 mEq/L 05/06/2015 Comp Metabolic Xcs557 CO2 29.0 mEq/L 05/06/2015 Comp Metabolic Trd092 AN ION GAP 11 05/06/2015 Comp Metabolic Rfw296 GL UCOSE 321 mg/dL 05/06/2015 Comp Metabolic Bcg390 Cr eat 1.0 mg/dL 05/06/2015 Comp Metabolic Eeh444 eG FR 78 ml/min/1.73m2 05/06 Comp Metabolic Pax781 BUN 20 mg/dL 05/06/2015 Comp Metabolic Nbp084 B/ C Ratio 20.4 Ratio 05/06/2015 Comp Metabolic Pno673 CA LCIUM 9.5 mg/dL 05/06/2015 Comp Metabolic Sal078 AL K PHOS 62 U/L 05/06/2015 Comp Metabolic Blo654 T(SGOT) 21 U/L 05/06/2015 Comp Metabolic Pac219 AL T(SGPT) 37 U/L 05/06/2015 Comp Metabolic Cyc677 BI LI T 0.4 mg/dL 05/06/2015 Comp Metabolic Ciw052 AL BUMIN 3.8 g/dL 05/06/2015 Comp Metabolic Wzo456 TP RO 6.1 g/dL 05/06/2015 Comp Metabolic Blj889 GL OB 2.3 g/dL 05/06/2015 Comp Metabolic Ham382 A/ G Ratio 1.7 Ratio 05/06/2015 Comp Metabolic Wbg081 Os mo 283 mOsmo 05/06/2015 Tsh Ord6 hTSH II 1.65 uIU/mL 02/18/2015 B12 Ugm362 B12 605.00 pg/ml 02/18/2015 %Hba1C Cif765 % HbA1c 35413-3 8.3 % 02/18/2015 %Hba1C Gid981 Gluc Ave 192 mg/dL 02/18/2015 Cbc With [...] Ord2 RDW 13.9 % 02/17/2015 Comp Metabolic Cnp524 NA 137 mEq/L 02/17/2015 Comp Metabolic Jvl066 K 4.4 mEq/L 02/17/2015 Comp Metabolic Hsy289 CL 100 mEq/L 02/17/2015 Comp Metabolic Vqo091 CO2 31.0 mEq/L 02/17/2015 Comp Metabolic Axb802 AN ION GAP 10 02/17/2015 Comp Metabolic Ekp921 GL UCOSE 307 mg/dL 02/17/2015 Comp Metabolic Zgv344 Cr eat 1.0 mg/dL 02/17/2015 Comp Metabolic Imv495 eG FR 74 ml/min/1.73m2 02/17 Comp Metabolic Qsq610 BUN 22 mg/dL 02/17/2015 Comp Metabolic Vaz154 B/ C Ratio 21.4 Ratio 02/17/2015 Comp Metabolic Ybv840 CA LCIUM 9.5 mg/dL 02/17/2015 Comp Metabolic Jnl093 AL K PHOS 78 U/L 02/17/2015 Comp Metabolic Eou015 T(SGOT) 18 U/L 02/17/2015 Comp Metabolic Byh663 AL T(SGPT) 32 U/L 02/17/2015 Comp Metabolic Fyb486 BI LI T 0.5 mg/dL 02/17/2015 Comp Metabolic Csv024 AL BUMIN 4.3 g/dL 02/17/2015 Comp Metabolic Ouj478 TP RO 6.7 g/dL 02/17/2015 Comp Metabolic Bdb044 GL OB 2.4 g/dL 02/17/2015 Comp Metabolic Epy305 A/ G Ratio 1.8 Ratio 02/17/2015 Comp Metabolic Ioa385 Os mo 289 mOsmo 02/17/2015 Review of [...] inspection of skin Location: face 03/07/2015 on religious, cheeks,actinic keratosis with irritation on left cheek - left religious - croptherapy on these two lesions - [...] Procedure Codes Date THER/PROPH/DIAG INJ SC/IM CPT-4: 39422 10/03/2018 THER/PROPH/DIAG INJ SC/IM CPT-4: 92225 09/23/2018 THER/PROPH/DIAG INJ SC/IM CPT-4: 89416 09/02/2018 THER/PROPH/DIAG INJ SC/IM CPT-4: 02632 08/21/2018 THER/PROPH/DIAG INJ SC/IM CPT-4: 11405 08/08/2018 THER/PROPH/DIAG INJ SC/IM CPT-4: 90739 07/28/2018 THER/PROPH/DIAG INJ SC/IM CPT-4: 39254 07/16/2018 THER/PROPH/DIAG INJ SC/IM CPT-4: 45973 07/02/2018 PPPS, SUBSEQ VISIT CPT- 4: G0439 06/30/2018 THER/PROPH/DIAG INJ SC/IM CPT-4: 62414 06/24/2018 THER/PROPH/DIAG INJ SC/IM CPT-4: 13726 06/13/2018 ADMIN INFLUENZA VIRU S VAC CPT-4: G0008 06/06/2018 FLU VACC PRSV FREE I NC ANTIG CPT-4: 84734 06/06/2018 THER/PROPH/DIAG INJ SC/IM CPT-4: 65370 06/05/2018 THER/PROPH/DIAG INJ SC/IM CPT-4: 20331 05/30/2018 THER/PROPH/DIAG INJ SC/IM CPT-4: 14522 05/22/2018 THER/PROPH/DIAG INJ SC/IM CPT-4: 60055 05/12/2018 THER/PROPH/DIAG INJ SC/IM CPT-4: 27238 05/02/2018 THER/PROPH/DIAG INJ SC/IM CPT-4: 50095 04/24/2018 THER/PROPH/DIAG INJ SC/IM CPT-4: 36632 04/17/2018 KETOROLAC TROMETHAMI NE INJ CPT-4: J1885 03/07/2018 URINALYSIS NONAUTO W /O SCOPE CPT-4: 82038 03/07/2018 THER/PROPH/DIAG INJ SC/IM CPT-4: 88785 02/20/2018 TRIAMCINOLONE ACET I [place] NOS CPT-4: J3301 01/30/2018 THER/PROPH/DIAG INJ SC/IM CPT-4: 67964 01/17/2018 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 3-[address]: [id number] CPT-4: G0436 04/25/2017 ADMIN INFLUENZA VIRU S VAC CPT-4: G0008 04/25/2017 ADMIN PNEUMOCOCCAL V ACCINE SNOMED CT: 78725758 CPT-4: G0009 04/25/2017 PNEUMOCOCCAL VACC [address]: 05504847 CPT-4: 93088 04/25/2017 FLU VACC PRSV FREE I NC ANTIG CPT-4: 75137 04/25/2017 ADMIN INFLUENZA VIRU S VAC CPT-4: G0008 05/22/2016 FLU VACC 4 TELLY 3 YRS PLUS IM Formatting Model/CDA Sections, Assigned to/Angela Clemons SNOMED CT: 03511633 CPT-4: 03156Mvymhaw 05/22/2016 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 3-[address]: 179974242 CPT-4: G0436 11/25/2015 URINALYSIS NONAUTO W /O SCOPE CPT-4: 06883 05/09/2015 TRIAMCINOLONE ACET I [place] NOS CPT-4: J3301 04/12/2015 DESTRUCT PREMALG LESION CPT-4: 40157 03/07/2015 DESTRUCT PREMALG LES 2-14 CPT-4: 40237 03/07/2015 REMOVE IMPACTED EAR WAX UNI CPT-4: 71144 12/31/2014 THER/PROPH/DIAG INJ SC/IM CPT-4: 89739 12/23/2014 TRIAMCINOLONE ACET I [place] NOS CPT-4: J3301 12/23/2014 Vital Signs Date Vital 09/02/2018 Blood Pressure 1: 140/80 Code: 8480-6 BMI: 21.2 Code: 82022-1 Heart Rate 1: 68 bpm Height: 5'11" SpO2: 97% Weight: 152 lbs 06/30/2018 BMI: 21.8 Code: 81182-2 Height: 5'11" Weight: 156 lbs 06/06/2018 Blood Pressure 1: 128/76 Code: 8480-6 BMI: 22.0 Code: 59443-2 Heart Rate 1: 81 bpm Height: 5'11" SpO2: 92% Weight: 158 lbs 04/04/2018 Blood Pressure 1: 124/70 Code: 8480-6 BMI: 20.8 Code: 98724-6 Heart Rate 1: 65 bpm Height: 5'11" SpO2: 95% Weight: 149 lbs 03/07/2018 Blood Pressure 1: 148/70 Code: 8480-6 BMI: 21.2 Code: 33504-9 Heart Rate 1: 66 bpm Height: 5'11" SpO2: 94% Weight: 152 lbs 02/20/2018 Blood Pressure 1: 134/58 Code: 8480-6 BMI: 20.5 Code: 69904-4 Heart Rate 1: 61 bpm Height: 5'11" SpO2: 92% Weight: 147 lbs 01/30/2018 Blood Pressure 1: 158/68 Code: 8480-6 BMI: 21.5 Code: 30650-7 Heart Rate 1: 71 bpm Height: 5'11" SpO2: 92% Weight: 154 lbs 01/14/2018 Blood Pressure 1: 156/70 Code: 8480-6 Height: Weight: 01/13/2018 Blood Pressure 1: 148/62 Code: 8480-6 BMI: 20.9 Code: 85855-2 Heart Rate 1: 54 bpm Height: 5'11" SpO2: 97% Weight: 150 lbs 11/19/2017 Blood Pressure 1: 150/60 Code: 8480-6 BMI: 21.8 Code: 56190-1 Heart Rate 1: 63 bpm Height: 5'11" SpO2: 98% Weight: 156 lbs 10/02/2017 Blood Pressure 1: 168/60 Code: 8480-6 BMI: 21.9 Code: 51482-4 Heart Rate 1: 52 bpm Height: 5'11" SpO2: 97% Weight: 157 lbs 07/23/2017 Blood Pressure 1: 170/70 Code: 8480-6 BMI: 21.8 Code: 36443-8 Heart Rate 1: 65 bpm Height: 5'11" SpO2: 98% Weight: 156 lbs 04/25/2017 Blood Pressure 1: 138/60 Code: 8480-6 BMI: 21.6 Code: 81424-5 Heart Rate 1: 55 bpm Height: 5'11" SpO2: 93% Weight: 155 lbs 02/19/2017 Blood Pressure 1: 138/64 Code: 8480-6 BMI: 21.3 Code: 51291-4 Heart Rate 1: 52 bpm Height: 5'11" SpO2: 96% Weight: 152 lbs 8 oz 01/21/2017 Blood Pressure 1: 160/68 Code: 8480-6 BMI: 21.3 Code: 15633-8 Heart Rate 1: 62 bpm Height: 5'11" SpO2: 96% Weight: 153 lbs 12/20/2016 Blood Pressure 1: 124/66 Code: 8480-6 BMI: 21.5 Code: 59747-1 Height: 5'11" Weight: 154 lbs 08/23/2016 Blood Pressure 1: 142/52 Code: 8480-6 BMI: 21.2 Code: 24723-7 Heart Rate 1: 54 bpm Height: 5'11" SpO2: 96% Weight: 152 lbs 05/22/2016 Blood Pressure 1: 130/76 Code: 8480-6 BMI: 21.5 Code: 21637-6 Heart Rate 1: 78 bpm Height: 5'11" SpO2: 92% Weight: 154 lbs 02/24/2016 Blood Pressure 1: 128/80 Code: 8480-6 BMI: 21.2 Code: 23708-6 Heart Rate 1: 74 bpm Height: 5'11" SpO2: 96% Weight: 152 lbs 01/27/2016 Blood Pressure 1: 144/60 Code: 8480-6 BMI: 21.2 Code: 33440-5 Heart Rate 1: 74 bpm Height: 5'11" SpO2: 97% Weight: 152 lbs 11/25/2015 Blood Pressure 1: 110/52 Code: 8480-6 BMI: 21.9 Code: 80665-6 Heart Rate 1: 65 bpm Height: 5'11" SpO2: 92% Weight: 157 lbs 07/28/2015 Blood Pressure 1: 138/62 Code: 8480-6 BMI: 21.8 Code: 15593-8 Heart Rate 1: 63 bpm Height: 5'11" SpO2: 91% Weight: 156 lbs 05/26/2015 Blood Pressure 1: 120/58 Code: 8480-6 BMI: 21.5 Code: 11984-1 Heart Rate 1: 99 bpm Height: 5'11" SpO2: 96% Weight: 154 lbs 05/06/2015 Blood Pressure 1: 120/58 Code: 8480-6 BMI: 21.2 Code: 61709-3 Heart Rate 1: 66 bpm Height: 5'11" SpO2: 96% Weight: 152 lbs 04/25/2015 Blood Pressure 1: 136/62 Code: 8480-6 BMI: 21.2 Code: 52120-9 Heart Rate 1: 63 bpm Height: 5'11" SpO2: 97% Weight: 152 lbs 04/12/2015 Blood Pressure 1: 160/58 Code: 8480-6 BMI: 21.6 Code: 24649-4 Heart Rate 1: 62 bpm Height: 5'11" Weight: 155 lbs 03/24/2015 Blood Pressure 1: 138/68 Code: 8480-6 BMI: 22.0 Code: 90867-9 Heart Rate 1: 65 bpm Height: 5'11" SpO2: 96% Weight: 158 lbs 03/07/2015 Blood Pressure 1: 116/52 Code: 8480-6 BMI: 22.2 Code: 73914-8 Heart Rate 1: 64 bpm Height: 5'11" SpO2: 97% Weight: 159 lbs 02/17/2015 Blood Pressure 1: 148/58 Code: 8480-6 BMI: 21.3 Code: 15135-5 Heart Rate 1: 63 bpm Height: 5'11" SpO2: 97% Weight: 153 lbs 12/31/2014 Blood Pressure 1: 100/60 Code: 8480-6 BMI: 21.8 Code: 93067-3 Heart Rate 1: 68 bpm Height: 5'11" Weight: 156 lbs 12/23/2014 Blood Pressure 1: 148/64 Code: 8480-6 BMI: 21.9 Code: 00828-0 Heart Rate 1: 64 bpm Height: 5'11" [...] Encounters Encounter Performer Loca tion Codes Date ([id number]) [id number] EST. 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 P ATIENT, LEVEL IV Diagnosis: Cellulitis of face[ICD10: L03.211] Diagnosis: Type 2 diabetes mellitus without complications[ICD10: E11.9] Diagnosis: Essential (primary) hypertension[ICD10: I10] Diagnosis: Encounter for immunization[ICD10: Z23] Karmen Ash MD, [facility] CPT-4: 68377 06/06/2018 ([id number]) 94375 EST. 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 P ATIENT, LEVEL III Diagnosis: Low back pain[ICD10: M54.5] Diagnosis: Dysuria[ICD10: R30.0] Karmen Ash MD, [facility] CPT-4: 85703 03/07/2018 ([id number]) 06253 EST. 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 P ATIENT, LEVEL III Diagnosis: Chronic obstructive pulmonary disease with (acute) exacerbation[ICD10: J44.1] Karmen Ash MD, [facility] CPT-4: 65042 01/30/2018 58377 EST. PATIENT, LEVEL II Diagnosis: Insect bite (nonvenomous), left lower leg, initial encounter[ICD10: S80.862A] Karmen Ash MD, [facility] CPT-4: 93269 01/14/2018 ([id number]) 94854 EST. P ATIENT, LEVEL IV Diagnosis: Type 2 diabetes mellitus with hyperglycemia[ICD10: E11.65] Diagnosis: Chronic obstructive pulmonary disease, unspecified[ICD10: J44.9] Diagnosis: Other fatigue[ICD10: R53.83] Karmen Ash MD, [facility] CPT- 4: 60902 01/13/2018 ([id number]) 35162 EST. P ATIENT, LEVEL IV Diagnosis: Type 2 diabetes mellitus with hyperglycemia[ICD10: E11.65] Diagnosis: Vitamin D deficiency, unspecified[ICD10: E55.9] Diagnosis: Essential (primary) hypertension[ICD10: I10] Diagnosis: Abdominal distension (gaseous)[ICD10: R14.0] Diagnosis: Drug induced constipation[ICD10: K59.03] Kamren Ash MD, [facility] CPT-4: 06495 11/19/2017 83127 EST. PATIENT, LEVEL IV Diagnosis: Low back pain[ICD10: M54.5] Diagnosis: Chronic obstructive pulmonary disease, unspecified[ICD10: J44.9] Brunilda Ash MD, [facility] CPT-4: 34130 10/02/2017 ([id number]) 65338 EST. P ATIENT, LEVEL IV Diagnosis: Essential (primary) hypertension[ICD10: I10] Diagnosis: Type 2 diabetes mellitus with hyperglycemia[ICD10: E11.65] Diagnosis: Vitamin D deficiency, unspecified[ICD10: E55.9] Diagnosis: Mixed hyperlipidemia[ICD10: E78.2] Karmen Ash MD, [facility] CPT-4: 37137 07/23/2017 ([id number]) 92565 EST. P ATIENT, LEVEL IV Diagnosis: Essential (primary) hypertension[ICD10: I10] Diagnosis: Type 2 diabetes mellitus with hyperglycemia[ICD10: E11.65] Diagnosis: Chronic obstructive pulmonary disease, unspecified[ICD10: J44.9] Diagnosis: Nicotine dependence, unspecified, uncomplicated[ICD10: F17.200] Diagnosis: Encounter for immunization[ICD10: Z23] Karmen Ash MD, [facility] CPT-4: 52104 04/25/2017 ([id number]) 05127 EST. P ATIENT, LEVEL IV Diagnosis: Type 2 diabetes mellitus with hyperglycemia[ICD10: E11.65] Diagnosis: Essential (primary) hypertension[ICD10: I10] Diagnosis: Anemia, unspecified[ICD10: D64.9] Karmen Ash MD, [facility] CPT- 4: 17445 02/19/2017 ([id number]) 63329 EST. P ATIENT, LEVEL IV Diagnosis: Slow transit constipation[ICD10: K59.01] Diagnosis: Gastro-esophageal reflux disease without esophagitis[ICD10: K21.9] Diagnosis: Essential (primary) hypertension[ICD10: I10] Karmen Ash MD, [facility] CPT-4: 06377 01/21/2017 ([id number]) 66949 EST. P ATIENT, LEVEL IV Diagnosis: Type 2 diabetes mellitus with hyperglycemia[ICD10: E11.65] Diagnosis: Vitamin D deficiency, unspecified[ICD10: E55.9] Diagnosis: Essential (primary) hypertension[ICD10: I10] Diagnosis: Chronic obstructive pulmonary disease, unspecified[ICD10: J44.9] Karmen Ash MD, [facility] CPT-4: 78727 12/20/2016 ([id number]) 84965 EST. P ATIENT, LEVEL IV Diagnosis: Type 2 diabetes mellitus with hyperglycemia[ICD10: E11.65] Diagnosis: Essential (primary) hypertension[ICD10: I10] Diagnosis: Mixed hyperlipidemia[ICD10: E78.2] Diagnosis: Vitamin D deficiency, unspecified[ICD10: E55.9] Karmen Ash MD, [facility] CPT-4: 90548 08/23/2016 ([id number]) 71415 EST. P ATIENT, LEVEL IV Diagnosis: Type 2 diabetes mellitus with hyperglycemia[ICD10: E11.65] Diagnosis: Essential (primary) hypertension[ICD10: I10] Diagnosis: Chronic obstructive pulmonary disease, unspecified[ICD10: J44.9] Karmen Ash MD, [facility] CPT-4: 09449 05/22/2016 ([id number]) 45857 EST. P ATIENT, LEVEL III Diagnosis: Dysuria[ICD10: R30.0] Diagnosis: Essential (primary) hypertension[ICD10: I10] Karmen Ash MD, [facility] CPT-4: 73160 02/24/2016 ([id number]) 05292 EST. P ATIENT, LEVEL IV Diagnosis: Gastro-esophageal reflux disease without esophagitis[ICD10: K21.9] Diagnosis: Slow transit constipation[ICD10: K59.01] Diagnosis: Type 2 diabetes mellitus with hyperglycemia[ICD10: E11.65] Karmen Ash MD, [facility] CPT-4: 32312 01/27/2016 ([id number]) 49948 EST. P ATIENT, LEVEL IV Diagnosis: Essential (primary) hypertension[ICD10: I10] Diagnosis: Type 2 diabetes mellitus with hyperglycemia[ICD10: E11.65] Diagnosis: Vitamin D deficiency, unspecified[ICD10: E55.9] Diagnosis: Chronic obstructive pulmonary disease, unspecified[ICD10: J44.9] Diagnosis: Mixed hyperlipidemia[ICD10: E78.2] Diagnosis: Tobacco use[ICD10: Z72.0] Karmen Ash MD, [facility] CPT- 4: 09316 11/25/2015 ([id number]) 43683 EST. P ATIENT, LEVEL IV Diagnosis: Type 2 diabetes mellitus with hyperglycemia[ICD10: E11.65] Diagnosis: Essential (primary) hypertension[ICD10: I10] Diagnosis: Vitamin D deficiency, unspecified[ICD10: E55.9] Karmen Ash MD, [facility] CPT-4: 26767 07/28/2015 ([id number]) 74512 EST. P ATIENT, LEVEL III Diagnosis: Type 2 diabetes mellitus with hyperglycemia[ICD10: E11.65] Diagnosis: Essential (primary) hypertension[ICD10: I10] Violeta Ash MD, [facility] CPT-4: 00457 05/26/2015 ([id number]) 36918 EST. P ATIENT, LEVEL III Diagnosis: DIABETES TYPE II[ICD9: 250.00] Diagnosis: COPD (chronic obstructive pulmonary disease)[ICD9: 496] Diagnosis: ESSENTIAL HYPERTENSION[ICD9: 401.9] Diagnosis: Cough[ICD9: 786.2] Violeta Ash MD, [facility] CPT-4: 46069 05/06/2015 ([id number]) 44481 EST. P ATIENT, LEVEL III Diagnosis: COPD (chronic obstructive pulmonary disease)[ICD9: 496] Diagnosis: DIABETES TYPE II[ICD9: 250.00] Diagnosis: Muscle ache[ICD9: 729.1] Karmen Ash MD, [facility] CPT- 4: 49342 04/25/2015 ([id number]) 76128 EST. P ATIENT, LEVEL III Diagnosis: ACTINIC KERATOSIS[ICD9: 702.0] Diagnosis: COPD (chronic obstructive pulmonary disease)[ICD9: 496] Diagnosis: DIABETES TYPE II[ICD9: 250.00] Diagnosis: ACUTE URI[ICD9: 465.9] Violeta Ash MD, [facility] CPT-4: 09740 04/12/2015 ([id number]) 68736 EST. P ATIENT, LEVEL III Diagnosis: DIABETES TYPE II[ICD9: 250.00] Violeta Ash MD, [facility] CPT-4: 55954 03/24/2015 ([id number]) 53694 EST. P ATIENT, LEVEL IV Diagnosis: DIABETES TYPE II[ICD9: 250.00] Diagnosis: Hypoglycemia[ICD9: 251.2] Diagnosis: Skin texture changes[ICD9: 782.8] Violeta Ash MD, [facility] CPT-4: 37308 03/07/2015 ([id number]) 03254 EST. P ATIENT, LEVEL IV Diagnosis: COPD (chronic obstructive pulmonary disease)[ICD9: 496] Diagnosis: Fatigue[ICD9: 780.79] Diagnosis: Insulin dependent diabetes mellitus[ICD9: 250.00] Diagnosis: Unsteady gait[ICD9: 781.2] [facility] CPT-4: 76046 02/17/2015 ([id number]) 16601 EST. [facility] Diagnosis: BPPV (benign paroxysmal positional vertigo)[ICD9: 386.11] Diagnosis: Impacted cerumen[ICD9: 380.4] Diagnosis: ESSENTIAL HYPERTENSION[ICD9: 401.9] Diagnosis: Insulin dependent diabetes mellitus[ICD9: 250.00] [facility] CPT-4: 49153 12/23/2014 ([id number]) OFFICE [facility] LEVEL 4 Diagnosis: Insulin dependent diabetes mellitus[ICD9: 250.00] Diagnosis: BPPV (benign paroxysmal positional vertigo)[ICD9: 386.11] Diagnosis: COPD (chronic obstructive pulmonary disease)[ICD9: 496] Diagnosis: Tobacco abuse[ICD9: 305.1] Diagnosis: Osteoarthritis[ICD9: 715.90] [facility] CPT- 4: 62323 12/09/2014 Plan of Care Planned Activity Notes C odes Status Date Patient Education: Patient Medication Summary Completed 10/03/2018 [...] medications. 09/02/2018 [facility] [phone] [phone] (15 min) Moderate 09/02/2018 Patient [...] surrogate. 06/30/2018 Appoint[facility]: [facility] [phone] [phone] [facility] - Annual Wellness Visit 06/30/2018 [...] in pain. 06/06/2018 Appointment: Karmen Espinal WPtel: [phone] (15 min) Moderate 06/06/2018 Patient [...] 2 months 04/04/2018 Appointment: Karmen Espinal WPtel: [phone] (15 min) Moderate 04/04/2018 Patient Education: Patient Medication Summary Completed 04/04/2018 Care Plan: Cbc With Differential Pending 04/04/2018 Care Plan: Testosterone repeat in 2 months Pending 04/04/2018 Appointment: Karmen Espinal WPtel: [facility] [place] [address] [place] (15 min) Moderate 03/25/2018 Visit Plan: Low back pain -history of kidney stone-UA negative today -increase fluids and call if pain does not resolve or if any worse. 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 01/30/2018 Appointment: Karmen Espinal WPtel: [facility] (15 min) Moderate 01/30/2018 Patient Education: Patient Medication Summary Completed 01/30/2018 Appointment: Karmen Espinal WPtel: [address] [place] [address] (15 min) Moderate 01/28/2018 Appointment: Injection 01/17/2018 Patient Education: Patient Medication Summary Completed 01/17/2018 Visit Plan: Cellulitis - start oral antibiotics as directed, return to clinic as previously directed, call for acute change in symptoms, worsening redness, warmth, discharge. 01/14/2018 Appointment: Karmen Espinal WPtel: [facility] [address] (10 min) Simple 01/14/2018 Patient Education: [...] less controlled. 01/13/2018 Appointment: Karmen Espinal WPtel: [facility] (15 min) Moderate 01/13/2018 Patient Education: Patient Medication Summary Completed 01/13/2018 Referral: Hugo Villatoro HPtel:[phone] Patient's informed. Referral info f [email or web address]. [...] change in blood pressure readings at home. Vkkzwaqh-gbpbpg-qtfek to see Dr Villatoro Constipation-start linzess daily 11/19/2017 Appointment: Karmen Espinal WPtel: [phone] (30 min) Complex 11/19/2017 Patient Education: Patient Medication Summary Completed 11/19/2017 Care Plan: Referral Order bloating, nausea SNOMED-CT : [id number] Pending 11/19/2017 Visit Plan: Low back pain- [...] changes. 10/02/2017 Appointment: Brun[facility] Maravilla [facility]el[facility] [phone] [phone] (15 min) Moderate 10/02/2017 Patient [...] controlled. 07/23/2017 Appointment: Karm[facility] Espinal WPtel: [phone] [phone] (30 min) Complex 07/23/2017 Patient Education: [...] pack/year history 04/25/2017 Appointment: Karmen Espinal WPtel: [phone] [phone] (30 min) Complex 04/25/2017 Patient [...] readings are starting to become less controlled. Obgaet-dbitbpr-ffpmu labs 02/19/2017 Appointment: [facility] Espinal [facility]Ptel[facility] [phone] [phone] (30 min) Complex 02/19/2017 Patient [...] month 01/21/2017 Appointment: Karmen Espinal WPtel: [phone] [phone] (30 min) Complex 01/21/2017 Patient Education: Patient Medication Summary Completed 01/21/2017 Patient Education: Smoking and Tobacco Addiction Completed 01/21/2017 Patient Education: Hypertension Completed 01/21/2017 Care Plan: Referral Order SNOMED-CT : 836374221 Pending 01/21/2017 Visit Plan: Diabetes Mellitus - [...] changes. 12/20/2016 Appointment: [facility]inal [facility]Ptel[facility] [phone] [phone] (30 min) Complex 12/20/2016 Patient Education: Patient Medication Summary Completed 12/20/2016 Patient Education: Smoking and Tobacco Addiction Completed 12/20/2016 Patient Education: Hypertension Completed 12/20/2016 Appointment: [facility] Espinal [facility]Ptel[facility] [phone] [phone] (30 min) Complex 09/06/2016 Visit [...] level 08/23/2016 Appointment: [facility] Espinal [facility]Ptel[facility] [phone] [phone] (30 min) Complex 08/23/2016 Patient [...] acute changes. 05/22/2016 Appointment: Karmen Espinal WPtel: [facility]5 [phone] (30 min) Complex 05/22/2016 Patient Education: Patient Medication Summary Completed 05/22/2016 Patient Education: Smoking and Tobacco Addiction Completed 05/22/2016 Care Plan: Cbc With Differential Ordered 05/22/2016 Care Plan: %Hba1C LOIN C : 70044-5 Ordered 05/22/2016 Care Plan: Tsh Ordered 05/22/2016 [...] with update 02/24/2016 Appointment: Karmen Espinal WPtel: [address] [place], [place] [phone] (30 min) [facility] 02/24/2016 Patient Education: Patient Medication Summary Completed [...] regimen. 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 Gztnkctl-mncyyxnm-OWTI SIMVASTATIN X 2 WEEKS AND CALL WITH [...] Care Plan: COMPLETE CBC AUTOMATED LOINC : 83107-9 Ordered 03/24/2015 Visit Plan: Diabetes Mellitus - [...] for removal. 03/07/2015 Appointment: Violeta Ash WPtel: [facility] (15 min) Moderate 03/07/2015 Patient Education: Patient [...] Care Plan: COMPLETE CBC AUTOMATED LOINC : 34939-7 Ordered 12/23/2014 Visit Plan: BPPV - Benign [...] appt 12/09/2014 Appointment: [facility] Espinal [facility]Ptel[facility] [phone] [phone] [place] ([place] New Patient 12/09/2014 Patient Education: Patient Medication Summary Completed 12/09/2014 Patient Education: .Amazing charts Parox ysmal positional vertigo Completed 12/09/2014 Patient Education: Smoking and Tobacco Addiction Completed 12/09/2014 Referral: Hugo Villatoro HPtel:[phone] [facility] Referral Appointment Requested Referral: Luis Donohue Referral [...] readings are starting to become less controlled. Tovjpg-xqagzmi-pasvs labs . Cellulitis - start oral antibiotics [...] - posterior scalp - referral to Dr. oDnohue for removal. . Cerumen Impaction - The [...] change in blood pressure readings at home. Jgwjlqmr-lcqwpj-akthv to see Dr Villatoro Constipation-start linzess daily [...] POTENTIAL SIDE EFFECTS AND WORSENING OF SYMPTOMS. Uivwoudv-cnlnorba-TKJO SIMVASTATIN X 2 WEEKS AND CALL WITH [...]
--- OUTSIDE RECORDS SUMMARY | 2020-03-29 09:09 | XMS REPORT | CCD ---
Author Author Dick Espinal Organization Violeta Ash MD, [facility] Address [address] [place] [address] Phone Care Team Providers Care Operator Coating Furnace Name Role Phone PP Unavailable CCM Unavailable Summary Purpose Interface Exchange Insurance Providers Payer name Policy type / Coverage type Covered constitution party ID Effective Begin Date Effective End Date WPS Medicare Part B Medicare Part B [id number] Unknown Unknown [employer] Co Medicar e Part B [id number] Unknown Unkn own Family history Father Diagnosis Age At Onset Cancer Unknown Mother Diagnosis Age At Onset Cancer Unknown Social History Social History Element Codes Description Effective Dates Marital status Unknown M arried 12/09/2014 Employment Unknown Retir ed 12/09/[address]: 81741374 Currently smokes tobacco 12/09/2014 Number of years using tobacco Unknown > 50 12/09/2014 Number of cigarettes/day Unknown 30 (Pack and a half) 12/09/[address]: 525623268 Never drinks alcohol 12/09/2014 Allergies, Adverse Reactions, [...] Fill Instructions Xanax 0.5 mg tablet RxNorm: 429731 1 Tablet(s) PO TID 10/03/2018 12/01/2018 Active testosterone cypiona te 200 mg/mL intramuscular oil RxNorm: 3995561 1/2 Milliliter(s) IM weekly 10/03/2018 01/30/2019 Active testosterone cypiona te 200 mg/mL intramuscular oil RxNorm: 7091350 Milliliter(s) IM 09/23/2018 09/23/2018 In active hydrocodone 5 mg-linh taminophen 325 mg tablet RxNorm: 525130 1 Tablet(s) PO Q6-8H as needed 09/22/2018 10/16/2018 Active testosterone cypiona te 200 mg/mL intramuscular oil RxNorm: 6121268 1/2 Milliliter(s) IM 09/02/2018 09/02/2018 Inactive testosterone enantha te 200 mg/mL intramuscular oil RxNorm: 540695 Milliliter(s) IM 08/21/2018 08/21/2018 In active hydrocodone 5 mg-linh taminophen 325 mg tablet RxNorm: 510637 1 Tablet(s) PO Q6-8H as needed 08/21/2018 09/14/2018 Inactive testosterone cypiona te 200 mg/mL intramuscular oil RxNorm: 9261273 Milliliter(s) IM 08/08/2018 08/08/2018 In active testosterone cypiona te 200 mg/mL intramuscular oil RxNorm: 2819537 1/2 Milliliter(s) IM 07/28/2018 07/28/2018 Inactive hydrocodone 5 mg-linh taminophen 325 mg tablet RxNorm: 958702 1 Tablet(s) PO Q6-8H as needed 07/21/2018 08/14/2018 Inactive testosterone cypiona te 200 mg/mL intramuscular oil RxNorm: 854580 Milliliter(s) IM 07/16/2018 07/16/2018 In active testosterone cypiona te 200 mg/mL intramuscular oil RxNorm: 099078 Milliliter(s) IM 07/02/2018 07/02/2018 In active Xanax 0.5 mg tablet RxNorm: 797375 1 Tablet(s) PO TID 06/27/2018 08/24/2018 Inactive testosterone cypiona te 200 mg/mL intramuscular oil RxNorm: 537423 Milliliter(s) IM 06/24/2018 06/24/2018 In active hydrocodone 5 mg-linh taminophen 325 mg tablet RxNorm: 784182 1 Tablet(s) PO Q6-8H as needed 06/23/2018 07/17/2018 Inactive testosterone cypiona te 200 mg/mL intramuscular oil RxNorm: 635890 Milliliter(s) IM 06/13/2018 06/13/2018 In active testosterone cypiona te 200 mg/mL intramuscular oil RxNorm: 504969 Milliliter(s) IM 06/05/2018 06/05/2018 In active testosterone cypiona te 200 mg/mL intramuscular oil RxNorm: 1468599 1/2 Milliliter(s) IM weekly 05/30/2018 09/26/2018 Inactive testosterone cypiona te 200 mg/mL intramuscular oil RxNorm: 516813 Milliliter(s) IM 05/30/2018 05/30/2018 In active testosterone cypiona te 200 mg/mL intramuscular oil RxNorm: 350983 Milliliter(s) IM 05/22/2018 05/22/2018 In active hydrocodone 5 mg-linh taminophen 325 mg tablet RxNorm: 355927 1 Tablet(s) PO Q6-8H as needed 05/20/2018 06/13/2018 Inactive testosterone cypiona te 200 mg/mL intramuscular oil RxNorm: 077572 1/2 Milliliter(s) IM 05/12/2018 05/12/2018 Inactive testosterone cypiona te 200 mg/mL intramuscular oil RxNorm: 327689 Milliliter(s) IM 05/02/2018 05/02/2018 In active testosterone cypiona te 200 mg/mL intramuscular oil RxNorm: 217188 1/2 Milliliter(s) IM weekly 04/24/2018 05/29/2018 Inactive testosterone cypiona te 200 mg/mL intramuscular oil RxNorm: 115102 0.5 Milliliter(s) IM 04/24/2018 04/24/2018 Inactive hydrocodone 5 mg-linh taminophen 325 mg tablet RxNorm: 151399 1 Tablet(s) PO Q6-8H as needed 04/22/2018 05/16/2018 Inactive testosterone cypiona te 200 mg/mL intramuscular oil RxNorm: 221345 1/2 Milliliter(s) IM 04/17/2018 04/17/2018 Inactive testosterone cypiona te 200 mg/mL intramuscular oil RxNorm: 267064 1/2 Milliliter(s) IM weekly 04/16/2018 04/23/2018 Inactive Jardiance 10 mg tablet RxNorm: 7809216 1 Tablet(s) PO daily 04/04/2018 12/29/2018 Active Protonix 40 mg table t,delayed release RxNorm: 556963 1 Tablet(s) PO daily TAKE 1 TABLET BY MOUTH DAILY 04/04/2018 03/29/2019 Active - Ref: [id number] testosterone cypiona te 200 mg/mL intramuscular oil RxNorm: 411613 1 Milliliter(s) IM monthly 04/04/2018 04/15/2018 Inactive hydrocodone 5 mg-linh taminophen 325 mg tablet RxNorm: 816867 1 Tablet(s) PO Q6-8H as needed 03/19/2018 04/12/2018 Inactive Flomax 0.4 mg capsule RxNorm: 950671 1 Capsule(s) PO daily 03/10/2018 03/04/2019 Active Urecholine 25 mg tablet RxNorm: 178993 1 Tablet(s) PO BID 03/10/2018 07/07/2018 Inactive ketorolac 60 mg/2 mL intramuscular solution RxNorm: 7130919 Milliliter(s) IM 03/07/2018 03/07/2018 In active metformin 500 mg tablet RxNorm: 401897 Tablet(s) TAKE 1 TABLET BY MOUTH DAILY 02/20/2018 02/14/2019 Ac tive 1 q am and 1/2 tab q pm hydrocodone 5 mg-linh taminophen 325 mg tablet RxNorm: 762239 1 Tablet(s) PO Q6-8H as needed 02/20/2018 03/16/2018 Inactive Kenalog 40 mg/mL bartolome pension for injection RxNorm: 8949163 1.5 Milliliter(s) In j 01/30/2018 01/30/2018 In active hydrocodone 5 mg-linh taminophen 325 mg tablet RxNorm: 197323 1 Tablet(s) PO Q6-8H as needed 01/23/2018 02/16/2018 Inactive Urecholine 25 mg tablet RxNorm: 163661 1 Tablet(s) PO BID 01/22/2018 03/09/2018 Inactive Flomax 0.4 mg capsule RxNorm: 565507 1 Capsule(s) PO daily 01/22/2018 03/09/2018 Inactive Flomax 0.4 mg capsule RxNorm: 603893 1 Capsule(s) PO daily 01/22/2018 01/21/2018 Inactive Urecholine 25 mg tablet RxNorm: 233415 1 Tablet(s) PO BID 01/22/2018 01/21/2018 Inactive testosterone cypiona te 200 mg/mL intramuscular oil RxNorm: 314227 Milliliter(s) IM 01/17/2018 01/17/2018 In active testosterone cypiona te 200 mg/mL intramuscular oil RxNorm: 972907 1 Milliliter(s) IM monthly 01/17/2018 04/03/2018 Inactive lisinopril 10 mg tablet RxNorm: 238478 TAKE 1 TABLET BY MOUTH TWO TIMES DAILY 01/14/2018 01/08/2019 Ac tive - First Attempt Ref: [id number] doxycycline hyclate 100 mg tablet RxNorm: 973220 1 Tablet(s) PO BID 01/14/2018 01/23/2018 Inactive Xanax 0.5 mg tablet RxNorm: 780125 1 Tablet(s) PO TID 01/08/2018 04/06/2018 Inactive nystatin 100,000 uni t/mL oral suspension RxNorm: 367636 4 Milliliter(s) PO QI D Swish and swallow 01/08/2018 01/07/2018 Inactive nystatin 100,000 uni t/mL oral suspension RxNorm: 294662 4 Milliliter(s) PO QI D Swish and swallow 01/08/2018 01/12/2018 Inactive simvastatin 40 mg ta blet RxNorm: 871658 TAKE 1 TABLET BY MOUT H DAILY AT BEDTIME 12/30/2017 12/24/2018 Ac tive - First Attempt Ref: [id number] metformin 500 mg tablet RxNorm: 951777 TAKE 1 TABLET BY MOUTH DAILY 12/30/2017 02/19/2018 Inactive - First Attempt Ref: [id number] hydrocodone 5 mg-linh taminophen 325 mg tablet RxNorm: 699441 1 Tablet(s) PO Q6-8H as needed 12/25/2017 01/18/2018 Inactive Protonix 40 mg table t,delayed release RxNorm: 936251 Tablet(s) TAKE 1 TABL ET BY MOUTH DAILY 11/20/2017 04/03/2018 Inactive - Ref: [id number] Linzess 72 mcg capsule RxNorm: 6783249 1 Capsule(s) PO daily 11/19/2017 No Stop Date Active hydrocodone 5 mg-linh taminophen 325 mg tablet RxNorm: 370336 1 Tablet(s) PO Q6-8H as needed 11/19/2017 12/13/2017 Inactive hydrocodone 5 mg-linh taminophen 325 mg tablet RxNorm: 141126 1 Tablet(s) PO Q6-8H as needed 10/28/2017 11/18/2017 Inactive Xanax 0.5 mg tablet RxNorm: 803585 1 Tablet(s) PO TID 10/25/2017 12/22/2017 Inactive Xanax 0.5 mg tablet RxNorm: 665613 TAKE ONE TABLET BY MOUTH THREE TIMES A D AY 10/24/2017 12/22/2017 In active hydrocodone 5 mg-linh taminophen 325 mg tablet RxNorm: 592771 1 Tablet(s) PO Q6-8H as needed 09/30/2017 10/24/2017 Inactive Protonix 40 mg table t,delayed release RxNorm: 640359 TAKE 1 TABLET BY MOUT H DAILY 09/16/2017 11/19/2017 In active - Ref: [id number] Yovana SoloStar 300 unit/mL (1.5 mL) subcutaneous insulin pen RxNorm: 4372345 35 Unit(s) SQ QHS 08/30/2017 No Stop Date Active dosage increase hydrocodone 5 mg-linh taminophen 325 mg tablet RxNorm: 251737 1 Tablet(s) PO Q6-8H as needed 08/28/2017 09/29/2017 Inactive hydrocodone 5 mg-linh taminophen 325 mg tablet RxNorm: 463419 1 Tablet(s) PO Q6-8H as needed 07/23/2017 08/24/2017 Inactive lisinopril 10 mg tablet RxNorm: 072983 1 Tablet(s) PO BID Take 1 tablet by mout h daily 07/23/2017 01/13/2018 Inactive hydrocodone 5 mg-linh taminophen 325 mg tablet RxNorm: 675697 1 Tablet(s) PO Q6-8H as needed 06/27/2017 07/22/2017 Inactive Xanax 0.5 mg tablet RxNorm: 618259 1 Tablet(s) PO TID 06/18/2017 10/25/2017 Inactive hydrocodone 5 mg-linh taminophen 325 mg tablet RxNorm: 376165 1 Tablet(s) PO Q6-8H as needed 05/27/2017 06/26/2017 Inactive Levaquin 500 mg tablet RxNorm: 737354 1 Tablet(s) PO daily 05/24/2017 05/23/2017 Inactive Levaquin 500 mg tablet RxNorm: 361699 1 Tablet(s) PO daily 05/24/2017 05/30/2017 Inactive Protonix 40 mg table t,delayed release RxNorm: 190759 Take 1 tablet by mout h daily 04/29/2017 09/15/2017 In active - Ref: [id number] hydrocodone 5 mg-linh taminophen 325 mg tablet RxNorm: 239701 1 Tablet(s) PO Q6-8H as needed 04/25/2017 05/26/2017 Inactive metformin 500 mg tablet RxNorm: 884534 Take 1 tablet by mouth daily 04/08/2017 12/29/2017 Inactive - First Attempt Ref: [id number] hydrocodone 5 mg-linh taminophen 325 mg tablet RxNorm: 158986 1 Tablet(s) PO Q6-8H as needed 03/27/2017 04/24/2017 Inactive hydrocodone 5 mg-linh taminophen 325 mg tablet RxNorm: 881835 1 Tablet(s) PO Q6-8H as needed 02/25/2017 03/26/2017 Inactive Protonix 40 mg table t,delayed release RxNorm: 877484 Tablet(s) Take 1 tabl et by mouth BID 02/25/2017 04/28/2017 Inactive Protonix 40 mg table t,delayed release RxNorm: 097813 Tablet(s) Take 1 tabl et by mouth BID 02/19/2017 02/18/2017 Inactive Protonix 40 mg table t,delayed release RxNorm: 365255 Tablet(s) Take 1 tabl et by mouth BID 02/19/2017 02/24/2017 Inactive lisinopril 10 mg tablet RxNorm: 873867 Take 1 tablet by mouth daily 01/29/2017 07/22/2017 Inactive - First Attempt Ref: [id number] hydrocodone 5 mg-linh taminophen 325 mg tablet RxNorm: 981811 1 Tablet(s) PO Q6-8H as needed 01/25/2017 02/24/2017 Inactive simvastatin 40 mg ta blet RxNorm: 067861 Tablet(s) Take 1 tabl et by mouth daily at bedtime 01/03/2017 12/28/2017 Inactive lisinopril 10 mg tablet RxNorm: 348889 Tablet(s) Take 1 tablet by mouth daily 01/03/2017 01/28/2017 In active Protonix 40 mg table t,delayed release RxNorm: 924756 Tablet(s) Take 1 tabl et by mouth daily 12/28/2016 02/18/2017 Inactive hydrocodone 5 mg-linh taminophen 325 mg tablet RxNorm: 001324 1 Tablet(s) PO Q6-8H as needed 12/26/2016 01/24/2017 Inactive Xanax 0.5 mg tablet RxNorm: 103309 1 Tablet(s) PO TID 12/12/2016 03/11/2017 Inactive simvastatin 40 mg ta blet RxNorm: 740751 Tablet(s) Take 1 tabl et by mouth daily at bedtime 11/30/2016 01/02/2017 Inactive simvastatin 40 mg ta blet RxNorm: 478610 Take 1 tablet by mout h daily at bedtime 11/29/2016 11/29/2016 In active - First Attempt Ref: [id number] Protonix 40 mg table t,delayed release RxNorm: 725525 Take 1 tablet by mout h daily 11/27/2016 12/27/2016 In active - First Attempt Ref: [id number] hydrocodone 5 mg-linh taminophen 325 mg tablet RxNorm: 458203 1 Tablet(s) PO Q6-8H as needed 11/26/2016 12/25/2016 Inactive hydrocodone 5 mg-linh taminophen 325 mg tablet RxNorm: 254687 1 Tablet(s) PO Q8 as needed 10/24/2016 11/25/2016 Inactive Xanax 0.5 mg tablet RxNorm: 576246 1 Tablet(s) PO TID 10/09/2016 12/25/2016 Inactive hydrocodone 5 mg-linh taminophen 325 mg tablet RxNorm: 937233 1 Tablet(s) PO Q8 as needed 09/27/2016 10/23/2016 Inactive lisinopril 10 mg tablet RxNorm: 751604 Take 1 tablet by mouth daily 09/25/2016 01/02/2017 Inactive - First Attempt Ref: [id number] Vitamin D2 50,000 un it capsule RxNorm: 982055 1 Capsule(s) PO QW 09/06/2016 No Stop Date Active hydrocodone 5 mg-linh taminophen 325 mg tablet RxNorm: 964087 1 Tablet(s) PO Q8 as needed 08/28/2016 09/26/2016 Inactive Toujeo SoloStar 300 unit/mL (1.5 mL) subcutaneous insulin pen RxNorm: 6307572 25 Unit(s) SQ QHS 08/23/2016 08/29/2017 Inactive dosage increase hydrocodone 5 mg-linh taminophen 325 mg tablet RxNorm: 854195 1 Tablet(s) PO Q8 as needed 07/26/2016 08/27/2016 Inactive Protonix 40 mg table t,delayed release RxNorm: 719063 Take 1 tablet by mout h daily 07/24/2016 11/26/2016 In active - First Attempt Ref: [id number] hydrocodone 5 mg-linh taminophen 325 mg tablet RxNorm: 744514 1 Tablet(s) PO Q8 as needed 06/19/2016 07/21/2016 Inactive Toujeo SoloStar 300 unit/mL (1.5 mL) subcutaneous insulin pen RxNorm: 6813286 32 Unit(s) SQ QHS 05/30/2016 08/22/2016 Inactive dosage increase hydrocodone 5 mg-linh taminophen 325 mg tablet RxNorm: 313812 1 Tablet(s) PO Q8 as needed 05/22/2016 06/18/2016 Inactive hydrocodone 5 mg-linh taminophen 325 mg tablet RxNorm: 083363 1 Tablet(s) PO Q8 as needed 04/18/2016 05/17/2016 Inactive Protonix 40 mg table t,delayed release RxNorm: 837235 Take 1 tablet by mout h daily 04/05/2016 07/03/2016 In active - Ref: [id number] metformin 500 mg tablet RxNorm: 336046 Take 1 tablet by mouth daily 04/04/2016 07/02/2016 Inactive - Ref: [id number] Xanax 0.5 mg tablet RxNorm: 242279 1 Tablet(s) PO TID 03/30/2016 09/25/2016 Inactive Xanax 0.5 mg tablet RxNorm: 647982 1 Tablet(s) PO TID 03/23/2016 12/25/2016 Inactive hydrocodone 5 mg-linh taminophen 325 mg tablet RxNorm: 780439 1 Tablet(s) PO Q8 as needed 03/06/2016 04/04/2016 Inactive Cipro 500 mg tablet RxNorm: 650711 1 Tablet(s) PO BID 02/24/2016 03/04/2016 Inactive Miralax 17 gram oral powder packet RxNorm: 873768 1 packet PO every oth er day 01/27/2016 No Stop Date Active hydrocodone 5 mg-linh taminophen 325 mg tablet RxNorm: 946891 1 Tablet(s) PO Q8 as needed 01/27/2016 02/25/2016 Inactive lisinopril 10 mg tablet RxNorm: 054517 1 Tablet(s) PO daily 01/12/2016 09/24/2016 Inactive simvastatin 40 mg ta blet RxNorm: 125038 1 Tablet(s) PO QHS 01/12/2016 11/28/2016 Inactive simvastatin 40 mg ta blet RxNorm: 154677 1 Tablet(s) PO QHS 01/11/2016 01/11/2016 Inactive lisinopril 10 mg tablet RxNorm: 780140 1 Tablet(s) PO daily 01/06/2016 01/11/2016 Inactive simvastatin 40 mg ta blet RxNorm: 708948 1 Tablet(s) PO daily 12/28/2015 01/10/2016 Inactive hydrocodone 5 mg-linh taminophen 325 mg tablet RxNorm: 045470 1 Tablet(s) PO Q8 as needed 12/27/2015 01/26/2016 Inactive Xanax 0.5 mg tablet RxNorm: 255526 1 Tablet(s) PO TID 11/30/2015 03/29/2016 Inactive meclizine 25 mg tablet RxNorm: 695470 1 Tablet(s) PO Q6 PRN TAKE ONE TABLET BY MOUTH EVERY 6 HOURS NEEDED 11/25/2015 02/22/2016 Inactive Toujeo SoloStar 300 unit/mL (1.5 mL) subcutaneous insulin pen RxNorm: 3001514 30 Unit(s) SQ QHS 11/25/2015 05/29/2016 Inactive dosage increase omeprazole 20 mg cap jacquelyn,delayed release RxNorm: 496521 1 Capsule(s) PO daily 10/06/2015 01/26/2016 In active Toujeo SoloStar 300 unit/mL (1.5 mL) subcutaneous insulin pen RxNorm: 6782980 35 Unit(s) SQ QHS 08/02/2015 11/24/2015 Inactive dosage increase Vitamin D2 50,000 un it capsule RxNorm: 281968 1 Capsule(s) PO QW 08/02/2015 09/05/2016 Inactive hydrocodone 5 mg-linh taminophen 325 mg tablet RxNorm: 646755 1 Tablet(s) PO Q8 as needed 07/11/2015 12/26/2015 Inactive Xanax 0.5 mg tablet RxNorm: 286832 1 Tablet(s) PO TID 06/30/2015 06/29/2015 Inactive Xanax 0.5 mg tablet RxNorm: 548587 1 Tablet(s) PO TID 06/30/2015 12/25/2015 Inactive hydrocodone 5 mg-linh taminophen 325 mg tablet RxNorm: 308725 1 Tablet(s) PO Q8 as needed 05/06/2015 07/10/2015 Inactive Symbicort 160 mcg-4. 5 mcg/actuation HFA aerosol inhaler RxNorm: 5092383 INH 04/25/2015 No Stop Date Active Levemir FlexTouch 10 0 unit/mL (3 mL) subcutaneous insulin pen RxNorm: 415524 30 Unit(s) SQ QHS 04/25/2015 11/24/2015 Inactive prednisone 20 mg tablet RxNorm: 390046 1 Tablet(s) PO BID 04/25/2015 04/29/2015 Inactive metformin 500 mg tablet RxNorm: 897345 1 Tablet(s) PO daily 04/25/2015 04/03/2016 Inactive amoxicillin 500 mg c apsule RxNorm: 005281 1 Capsule(s) PO TID 04/14/2015 04/13/2015 Inactive amoxicillin 500 mg c apsule RxNorm: 074046 1 Capsule(s) PO TID a nd recommend probiotic tid (otc) 04/14/2015 04/20/2015 Inactive Kenalog 40 mg/mL bartolome pension for injection RxNorm: 6265250 Milliliter(s) Inj 04/12/2015 04/12/2015 In active hydrocodone 5 mg-linh taminophen 325 mg tablet RxNorm: 935648 1 Tablet(s) PO Q8 as needed 03/30/2015 05/05/2015 Inactive Lantus 100 unit/mL s ubcutaneous solution RxNorm: 517327 25 Unit(s) SQ QPM 03/24/2015 04/25/2015 In active meclizine 25 mg tablet RxNorm: 959444 Tablet(s) TAKE ONE TABLET BY MOUTH EVERY 6 HOURS NEEDED 03/08/2015 04/06/2015 Inactive meclizine 25 mg tablet RxNorm: 270806 TAKE ONE TABLET BY MOUTH EVERY 6 HOURS A S NEEDED 02/25/2015 03/03/2015 Inactive Lantus 100 unit/mL s ubcutaneous solution RxNorm: 970676 20 Unit(s) SQ QPM 02/23/2015 03/23/2015 In active Lantus 100 unit/mL s ubcutaneous solution RxNorm: 985262 25 Unit(s) SQ QPM 02/23/2015 02/22/2015 In active hydrocodone 5 mg-linh taminophen 325 mg tablet RxNorm: 852646 1 Tablet(s) PO Q8 as needed 02/17/2015 03/29/2015 Inactive Xanax 0.5 mg tablet RxNorm: 489613 1 Tablet(s) PO TID 02/03/2015 06/29/2015 Inactive Lantus 100 unit/mL s ubcutaneous solution RxNorm: 153748 20 Unit(s) SQ QPM 12/29/2014 02/22/2015 In active Phenergan 12.5 mg re ctal suppository RxNorm: 579846 1 Suppository RTL Q6 PRN 12/23/2014 No Stop Date Active nausea Kenalog 40 mg/mL bartolome pension for injection RxNorm: 5456065 Milliliter(s) Inj 12/23/2014 12/23/2014 In active prednisone 20 mg tablet RxNorm: 419986 2 Tablet(s) PO daily 12/13/2014 12/17/2014 Inactive prednisone 20 mg tablet RxNorm: 734013 2 Tablet(s) PO daily 12/13/2014 12/12/2014 Inactive meclizine 25 mg tablet RxNorm: 049292 1 Tablet(s) PO Q6 PRN 12/09/2014 02/24/2015 Inactive hydrocodone 5 mg-linh taminophen 325 mg tablet RxNorm: 888352 1 Tablet(s) PO Q8 as needed 12/09/2014 02/16/2015 Inactive Vitamin B-12 1,000 m cg/mL oral drops RxNorm: 6854101 1 Milliliter(s) PO d aily No Start Date Active Alphagan P 0.1 % eye drops RxNorm: 608149 1 Drop(s) OPH BID No Start Date Active aspirin 325 mg table t,delayed release RxNorm: 229575 1 Tablet(s) PO daily No Start Date Active Tricor 145 mg tablet RxNorm: 445966 1 Tablet(s) PO daily No Start Date Active vitamin [id number] B1 oral liquid RxNorm: 1,000 Microgram(s) PO daily No Start Date Active atenolol 50 mg tablet RxNorm: 173523 1 Tablet(s) PO daily No Start Date Active Protonix 40 mg table t,delayed release RxNorm: 024820 1 Tablet(s) PO daily No Start Date 04/04/2016 Inactive glipizide 10 mg tablet RxNorm: 707700 1 Tablet(s) PO BID No Start Date 03/22/2015 Inactive Lantus 100 unit/mL s ubcutaneous solution RxNorm: 818687 15 Unit(s) SQ QPM No Start Date 12/28/2014 Inactive lisinopril 10 mg tablet RxNorm: 645427 1 Tablet(s) PO daily No Start Date 01/05/2016 Inactive Vitamin D2 50,000 un it capsule RxNorm: 548049 1 Capsule(s) PO QW No Start Date 08/01/2015 Inactive Toujeo SoloStar 300 unit/mL (1.5 mL) subcutaneous insulin pen RxNorm: 5533635 30 Unit(s) SQ QHS No Start Date 08/01/2015 Inactive simvastatin 40 mg ta blet RxNorm: 624576 1 Tablet(s) PO daily No Start Date 12/27/2015 Inactive testosterone cypiona te 200 mg/mL intramuscular oil RxNorm: 233702 1 Milliliter(s) IM monthly No Start Date 01/16/2018 Inactive hydrocodone 5 mg-lnih taminophen 325 mg tablet RxNorm: 694309 1 Tablet(s) PO Q8 as needed No Start Date 12/08/2014 Inactive metformin 500 mg tablet RxNorm: 113364 1 Tablet(s) PO daily No Start Date 04/24/2015 Inactive omeprazole 20 mg cap jacquelyn,delayed release RxNorm: 697963 1 Capsule(s) PO daily No Start Date 10/05/2015 Inactive Flomax 0.4 mg capsule RxNorm: 152953 1 Capsule(s) PO daily No Start Date 03/23/2015 Inactive Medication Administered Medication Codes Instruc tions Start Date Status testosterone cypionate 200 mg/mL intramuscular oil RxNorm: 9287537 Milliliter 09/23/2018 No longer Active testosterone cypionate 200 mg/mL intramuscular oil RxNorm: 5992828 /2Milliliter 09/02/2018 No longer Active testosterone enanthate 200 mg/mL intramuscular oil RxNorm: 229819 Milliliter 08/21/2018 No longer Active testosterone cypionate 200 mg/mL intramuscular oil RxNorm: 4895202 Milliliter 08/08/2018 No longer Active testosterone cypionate 200 mg/mL intramuscular oil RxNorm: 1666859 /2Milliliter 07/28/2018 No longer Active testosterone cypionate 200 mg/mL intramuscular oil RxNorm: 259334 Milliliter 07/16/2018 No longer Active testosterone cypionate 200 mg/mL intramuscular oil RxNorm: 039484 Milliliter 07/02/2018 No longer Active testosterone cypionate 200 mg/mL intramuscular oil RxNorm: 904852 Milliliter 06/24/2018 No longer Active testosterone cypionate 200 mg/mL intramuscular oil RxNorm: 423060 Milliliter 06/13/2018 No longer Active testosterone cypionate 200 mg/mL intramuscular oil RxNorm: 950605 Milliliter 06/05/2018 No longer Active testosterone cypionate 200 mg/mL intramuscular oil RxNorm: 052190 Milliliter 05/30/2018 No longer Active testosterone cypionate 200 mg/mL intramuscular oil RxNorm: 460092 Milliliter 05/22/2018 No longer Active testosterone cypionate 200 mg/mL intramuscular oil RxNorm: 804462 /2Milliliter 05/12/2018 No longer Active testosterone cypionate 200 mg/mL intramuscular oil RxNorm: 701247 Milliliter 05/02/2018 No longer Active testosterone cypionate 200 mg/mL intramuscular oil RxNorm: 418191 0.5Milliliter 04/24/2018 No longer Active testosterone cypionate 200 mg/mL intramuscular oil RxNorm: 565500 /2Milliliter 04/17/2018 No longer Active ketorolac 60 mg/2 mL intramuscular solution RxNorm: 2124893 Milliliter 03/07/2018 No longer Active Kenalog 40 mg/mL suspension for injection RxNorm: 2611801 1.5Milliliter 01/30/2018 No longer Active testosterone cypionate 200 mg/mL intramuscular oil RxNorm: 243956 Milliliter 01/17/2018 No longer Active Kenalog 40 mg/mL suspension for injection RxNorm: 7138789 Milliliter 04/12/2015 No longer Active Kenalog 40 mg/mL suspension for injection RxNorm: 7612397 Milliliter 12/23/2014 No longer Active Immunizations Vaccine Codes Date Status Influenza CVX: 141 06/06 completed Influenza CVX: 141 04/25 completed Pneumococcal (Adult) CVX: 133 04/25/2017 completed Influenza CVX: 141 05/22 completed Assessments Condition Codes Effectiv e Dates Testicular dysfunction, unspecified ICD-10: E29.9 ICD-9: 257.9 09/23/2018 Mixed hyperlipidemia ICD-10: E78.2 ICD-9: 272.2 09/02/2018 [...] Code Item Item Code Result Date Testosterone Sqx250 Testo 669.0 ng/dL 09/08/2018 %Hba1C Cck517 % HbA1c 56955-2 7.4 % 09/08/2018 %Hba1C Omt556 Gluc Ave 166 mg/dL 09/08/2018 Lipid Ord30 CHOL 114 mg/dL 09/08/2018 Lipid Ord30 HDL 28.0 mg/dl 09/08/2018 Lipid Ord30 TRIG 154 mg/dL 09/08/2018 Lipid Ord30 LDL 55 mg/dL 09/08/2018 Lipid Ord30 C/HDL 4.1 Ratio 09/08/2018 Comp Metabolic Yde496 NA 137 mEq/L 09/08/2018 Comp Metabolic Hwa896 K 4.3 mEq/L 09/08/2018 Comp Metabolic Bqf593 CL 100 mEq/L 09/08/2018 Comp Metabolic Aby086 CO2 27.0 mEq/L 09/08/2018 Comp Metabolic Wgg669 AN ION GAP 14 09/08/2018 Comp Metabolic Gyu742 GL UCOSE 85 mg/dL 09/08/2018 Comp Metabolic Hyw217 Cr eat 1.1 mg/dL 09/08/2018 Comp Metabolic Kvu533 eG FR 70 ml/min/1.73m2 09/08 Comp Metabolic Ulr268 BUN 11 mg/dL 09/08/2018 Comp Metabolic Sfj526 B/ C Ratio 10.3 Ratio 09/08/2018 Comp Metabolic Dge413 CA LCIUM 9.2 mg/dL 09/08/2018 Comp Metabolic Vzf679 AL K PHOS 65 U/L 09/08/2018 Comp Metabolic Pfr451 T(SGOT) 16 U/L 09/08/2018 Comp Metabolic Onq892 AL T(SGPT) 14 U/L 09/08/2018 Comp Metabolic Gcu053 BI LI T 0.6 mg/dL 09/08/2018 Comp Metabolic Uwg113 AL BUMIN 4.0 g/dL 09/08/2018 Comp Metabolic Zbw944 TP RO 6.6 g/dL 09/08/2018 Comp Metabolic Jsn141 GL OB 2.6 g/dL 09/08/2018 Comp Metabolic Kxu673 A/ G Ratio 1.6 Ratio 09/08/2018 Comp Metabolic Lra599 Os mo 272 mOsmo 09/08/2018 Vitamin D 25 Oh Pem7900 VITAMIN D, 25 HYDROXY 37.17 ng/mL 09/08/2018 [...] 33.3 pg 09/08/2018 Cbc With Differential Ord2 [place]% 8.1 % 09/08/2018 Cbc With Differential Ord2 [...] 2.44 K/ul 09/08/2018 Cbc With Differential Ord2 [place] ABS# 0.6 K/ul 09/08/2018 Cbc With Differential Ord2 Eos ABS# 0.3 K/ul 09/08/2018 Cbc With Differential Ord2 Baso ABS# 0.0 K/ul 09/08/2018 Tsh Ord6 TSH (3rd IS) 2.72 uIU/mL 09/08/2018 Comp Metabolic Fio113 NA 139 mEq/L 04/01/2018 Comp Metabolic Ppq054 K 4.2 mEq/L 04/01/2018 Comp Metabolic Rkh783 CL 102 mEq/L 04/01/2018 Comp Metabolic Sla741 CO2 29.0 mEq/L 04/01/2018 Comp Metabolic Ujz975 AN ION GAP 12 04/01/2018 Comp Metabolic Cet744 GL UCOSE 87 mg/dL 04/01/2018 Comp Metabolic Quw443 Cr eat 1.1 mg/dL 04/01/2018 Comp Metabolic Ifk875 eG FR 70 ml/min/1.73m2 04/01 Comp Metabolic Ovd731 BUN 21 mg/dL 04/01/2018 Comp Metabolic Mop384 B/ C Ratio 19.4 Ratio 04/01/2018 Comp Metabolic Ldw014 CA LCIUM 9.1 mg/dL 04/01/2018 Comp Metabolic Ldf542 AL K PHOS 60 U/L 04/01/2018 Comp Metabolic Vbm588 T(SGOT) 15 U/L 04/01/2018 Comp Metabolic Zxe380 AL T(SGPT) 18 U/L 04/01/2018 Comp Metabolic Gfs089 BI LI T 0.4 mg/dL 04/01/2018 Comp Metabolic Bpy581 AL BUMIN 4.0 g/dL 04/01/2018 Comp Metabolic Lbm763 TP RO 6.5 g/dL 04/01/2018 Comp Metabolic Ubg521 GL OB 2.5 g/dL 04/01/2018 Comp Metabolic Bom654 A/ G Ratio 1.6 Ratio 04/01/2018 Comp Metabolic Kma561 Os mo 280 mOsmo 04/01/2018 Lipid Ord30 [...] 101.6 fl 04/01/2018 Cbc With Differential Ord2 [place]% 6.0 % 04/01/2018 Cbc With Differential Ord2 [...] 3.25 K/ul 04/01/2018 Cbc With Differential Ord2 [place] ABS# 0.6 K/ul 04/01/2018 Cbc With Differential Ord2 Eos ABS# 0.4 K/ul 04/01/2018 Cbc With Differential Ord2 Baso ABS# 0.0 K/ul 04/01/2018 %Hba1C Qat560 % HbA1c 79711-5 8.0 % 04/01/2018 %Hba1C Udz611 Gluc Ave 183 mg/dL 04/01/2018 Testosterone Ywi259 Testo 111.3 ng/dL 04/01/2018 Testosterone Yhm723 Testo 135.4 ng/dL 01/14/2018 Cbc With Differential [...] 36.0 pg 01/14/2018 Cbc With Differential Ord2 [place]% 6.8 % 01/14/2018 Cbc With Differential Ord2 [...] 2.71 K/ul 01/14/2018 Cbc With Differential Ord2 [place] ABS# 0.8 K/ul 01/14/2018 Cbc With Differential Ord2 Eos ABS# 0.2 K/ul 01/14/2018 Cbc With Differential Ord2 Baso ABS# 0.0 K/ul 01/14/2018 Comp Metabolic Xan716 NA 134 mEq/L 11/20/2017 Comp Metabolic Wlq971 K 4.4 mEq/L 11/20/2017 Comp Metabolic Rdd501 CL 99 mEq/L 11/20/2017 Comp Metabolic Nnw094 CO2 29.0 mEq/L 11/20/2017 Comp Metabolic Olo200 AN ION GAP 10 11/20/2017 Comp Metabolic Lta145 GL UCOSE 218 mg/dL 11/20/2017 Comp Metabolic Wrm510 Cr eat 1.0 mg/dL 11/20/2017 Comp Metabolic Ayt264 eG FR 78 ml/min/1.73m2 11/20 Comp Metabolic Tza144 BUN 13 mg/dL 11/20/2017 Comp Metabolic Lil146 B/ C Ratio 13.3 Ratio 11/20/2017 Comp Metabolic Qtd363 CA LCIUM 9.0 mg/dL 11/20/2017 Comp Metabolic Vgd428 AL K PHOS 71 U/L 11/20/2017 Comp Metabolic Mko915 T(SGOT) 18 U/L 11/20/2017 Comp Metabolic Jti788 AL T(SGPT) 17 U/L 11/20/2017 Comp Metabolic Mzs278 BI LI T 0.4 mg/dL 11/20/2017 Comp Metabolic Mma964 AL BUMIN 4.1 g/dL 11/20/2017 Comp Metabolic Yvg075 TP RO 6.5 g/dL 11/20/2017 Comp Metabolic Kup898 GL OB 2.4 g/dL 11/20/2017 Comp Metabolic Lvp805 A/ G Ratio 1.8 Ratio 11/20/2017 Comp Metabolic Xvl127 Os mo 275 mOsmo 11/20/2017 Cbc With [...] 35.2 pg 11/20/2017 Cbc With Differential Ord2 [place]% 7.2 % 11/20/2017 Cbc With Differential Ord2 [...] 3.34 K/ul 11/20/2017 Cbc With Differential Ord2 [place] ABS# 0.6 K/ul 11/20/2017 Cbc With Differential Ord2 Eos ABS# 0.3 K/ul 11/20/2017 Cbc With Differential Ord2 Baso ABS# 0.0 K/ul 11/20/2017 Vitamin D 25 Oh [id number] VITAMIN D, 25 HYDROXY 43.72 ng/mL 11/20/2017 %Hba1C Gwt244 % HbA1c 19324-7 7.4 % 11/20/2017 %Hba1C Hcd284 Gluc Ave 166 mg/dL 11/20/2017 %Hba1C Uky712 % HbA1c 47674-5 7.2 % 08/20/2017 %Hba1C Fxd703 Gluc Ave 160 mg/dL 08/20/2017 Lipid Ord30 [...] 34.7 pg 08/20/2017 Cbc With Differential Ord2 [place]% 7.6 % 08/20/2017 Cbc With Differential Ord2 [...] 2.42 K/ul 08/20/2017 Cbc With Differential Ord2 [place] ABS# 0.6 K/ul 08/20/2017 Cbc With Differential Ord2 Eos ABS# 0.3 K/ul 08/20/2017 Cbc With Differential Ord2 Baso ABS# 0.0 K/ul 08/20/2017 Tsh Ord6 hTSH II 2.27 uIU/mL 08/20/2017 Comp Metabolic Jxq859 NA 138 mEq/L 08/20/2017 Comp Metabolic Nqm566 K 4.3 mEq/L 08/20/2017 Comp Metabolic Wba689 CL 102 mEq/L 08/20/2017 Comp Metabolic Duf946 CO2 29.0 mEq/L 08/20/2017 Comp Metabolic Ehd358 AN ION GAP 11 08/20/2017 Comp Metabolic Dht510 GL UCOSE 89 mg/dL 08/20/2017 Comp Metabolic Cvk323 Cr eat 1.0 mg/dL 08/20/2017 Comp Metabolic Yfc721 eG FR 80 ml/min/1.73m2 08/20 Comp Metabolic Ypx048 BUN 13 mg/dL 08/20/2017 Comp Metabolic Het138 B/ C Ratio 13.5 Ratio 08/20/2017 Comp Metabolic Pum946 CA LCIUM 9.2 mg/dL 08/20/2017 Comp Metabolic Lpf952 AL K PHOS 69 U/L 08/20/2017 Comp Metabolic Gdf640 T(SGOT) 18 U/L 08/20/2017 Comp Metabolic Znu792 AL T(SGPT) 19 U/L 08/20/2017 Comp Metabolic Fge907 BI LI T 0.6 mg/dL 08/20/2017 Comp Metabolic Qkz856 AL BUMIN 4.0 g/dL 08/20/2017 Comp Metabolic Eyf901 TP RO 6.6 g/dL 08/20/2017 Comp Metabolic Ltg430 GL OB 2.6 g/dL 08/20/2017 Comp Metabolic Bco272 A/ G Ratio 1.5 Ratio 08/20/2017 Comp Metabolic Ozp966 Os mo 275 mOsmo 08/20/2017 Vitamin D 25 Oh Sxf7460 VITAMIN D, 25 HYDROXY 30.96 ng/mL 08/20/2017 B12 Wco130 B12 >1500.00 pg/ml 02/22/2017 Cbc With Differential [...] 35.7 pg 02/20/2017 Cbc With Differential Ord2 [place]% 6.3 % 02/20/2017 Cbc With Differential Ord2 [...] 3.19 K/ul 02/20/2017 Cbc With Differential Ord2 [place] ABS# 0.5 K/ul 02/20/2017 Cbc With Differential Ord2 Eos ABS# 0.4 K/ul 02/20/2017 Cbc With Differential Ord2 Baso ABS# 0.0 K/ul 02/20/2017 Comp Metabolic Ofc166 NA 138 mEq/L 02/20/2017 Comp Metabolic Wcz092 K 4.5 mEq/L 02/20/2017 Comp Metabolic Mtp112 CL 101 mEq/L 02/20/2017 Comp Metabolic Wxg179 CO2 31.0 mEq/L 02/20/2017 Comp Metabolic Pir917 AN ION GAP 11 02/20/2017 Comp Metabolic Vzy216 GL UCOSE 120 mg/dL 02/20/2017 Comp Metabolic Vok113 Cr eat 0.9 mg/dL 02/20/2017 Comp Metabolic Ulr256 eG FR 83 ml/min/1.73m2 02/20 Comp Metabolic Npx427 BUN 15 mg/dL 02/20/2017 Comp Metabolic Plp300 B/ C Ratio 16.1 Ratio 02/20/2017 Comp Metabolic Pkx123 CA LCIUM 9.1 mg/dL 02/20/2017 Comp Metabolic Oko602 AL K PHOS 67 U/L 02/20/2017 Comp Metabolic Qnd805 T(SGOT) 15 U/L 02/20/2017 Comp Metabolic Jce134 AL T(SGPT) 16 U/L 02/20/2017 Comp Metabolic Adz518 BI LI T 0.5 mg/dL 02/20/2017 Comp Metabolic Kku121 AL BUMIN 4.0 g/dL 02/20/2017 Comp Metabolic Wct924 TP RO 6.4 g/dL 02/20/2017 Comp Metabolic Ywg878 GL OB 2.4 g/dL 02/20/2017 Comp Metabolic Yun081 A/ G Ratio 1.7 Ratio 02/20/2017 Comp Metabolic Whp895 Os mo 278 mOsmo 02/20/2017 Tsh Ord6 hTSH II 2.05 uIU/mL 02/20/2017 %Hba1C Hag123 % HbA1c 02941-6 7.6 % 02/20/2017 %Hba1C Smp146 Gluc Ave 171 mg/dL 02/20/2017 Vitamin D 25 Oh Ebe3073 VITAMIN D, 25 HYDROXY 44.40 ng/mL 12/21/2016 Comp Metabolic Qfj656 NA 131 mEq/L 12/21/2016 Comp Metabolic Jsv623 K 4.2 mEq/L 12/21/2016 Comp Metabolic Xua354 CL 97 mEq/L 12/21/2016 Comp Metabolic Wxq230 CO2 27.0 mEq/L 12/21/2016 Comp Metabolic Gpe917 AN ION GAP 11 12/21/2016 Comp Metabolic Nxp987 GL UCOSE 266 mg/dL 12/21/2016 Comp Metabolic Vob748 Cr eat 0.9 mg/dL 12/21/2016 Comp Metabolic Pfo863 eG FR 88 ml/min/1.73m2 12/21 Comp Metabolic Zzp302 BUN 12 mg/dL 12/21/2016 Comp Metabolic Flx799 B/ C Ratio 13.6 Ratio 12/21/2016 Comp Metabolic Ecg934 CA LCIUM 8.6 mg/dL 12/21/2016 Comp Metabolic Vds717 AL K PHOS 69 U/L 12/21/2016 Comp Metabolic Jnq056 T(SGOT) 15 U/L 12/21/2016 Comp Metabolic Qqr358 AL T(SGPT) 14 U/L 12/21/2016 Comp Metabolic Yav326 BI LI T 0.3 mg/dL 12/21/2016 Comp Metabolic Epd040 AL BUMIN 3.7 g/dL 12/21/2016 Comp Metabolic Oto889 TP RO 5.9 g/dL 12/21/2016 Comp Metabolic Fbr430 GL OB 2.2 g/dL 12/21/2016 Comp Metabolic Pwd022 A/ G Ratio 1.7 Ratio 12/21/2016 Comp Metabolic Tev489 Os mo 272 mOsmo 12/21/2016 Cbc With [...] 100.9 fl 12/21/2016 Cbc With Differential Ord2 [place]% 6.9 % 12/21/2016 Cbc With Differential Ord2 [...] 2.05 K/ul 12/21/2016 Cbc With Differential Ord2 [place] ABS# 0.4 K/ul 12/21/2016 Cbc With Differential Ord2 Eos ABS# 0.2 K/ul 12/21/2016 Cbc With Differential Ord2 Baso ABS# 0.0 K/ul 12/21/2016 Comp Metabolic Bln024 NA 138 mEq/L 09/03/2016 Comp Metabolic Meg941 K 4.5 mEq/L 09/03/2016 Comp Metabolic Scn789 CL 102 mEq/L 09/03/2016 Comp Metabolic Niu473 CO2 30.0 mEq/L 09/03/2016 Comp Metabolic Gjr861 AN ION GAP 11 09/03/2016 Comp Metabolic Nax455 GL UCOSE 113 mg/dL 09/03/2016 Comp Metabolic Izn209 Cr eat 1.0 mg/dL 09/03/2016 Comp Metabolic Ngp262 eG FR 81 ml/min/1.73m2 09/03 Comp Metabolic Nyw854 BUN 10 mg/dL 09/03/2016 Comp Metabolic Lzf539 B/ C Ratio 10.5 Ratio 09/03/2016 Comp Metabolic Oxc431 CA LCIUM 9.1 mg/dL 09/03/2016 Comp Metabolic Sxu949 AL K PHOS 71 U/L 09/03/2016 Comp Metabolic Dus167 T(SGOT) 18 U/L 09/03/2016 Comp Metabolic Kog680 AL T(SGPT) 17 U/L 09/03/2016 Comp Metabolic Idp105 BI LI T 0.6 mg/dL 09/03/2016 Comp Metabolic Vtd506 AL BUMIN 4.1 g/dL 09/03/2016 Comp Metabolic Zmu930 TP RO 6.4 g/dL 09/03/2016 Comp Metabolic Jhg985 GL OB 2.3 g/dL 09/03/2016 Comp Metabolic Gfq666 A/ G Ratio 1.8 Ratio 09/03/2016 Comp Metabolic Ydu163 Os mo 276 mOsmo 09/03/2016 Vitamin D 25 Oh Cdx2885 VITAMIN D, 25 HYDROXY 28.23 ng/mL 09/03/2016 [...] 34.4 pg 09/03/2016 Cbc With Differential Ord2 [place]% 8.9 % 09/03/2016 Cbc With Differential Ord2 [...] 3.34 K/ul 09/03/2016 Cbc With Differential Ord2 [place] ABS# 0.7 K/ul 09/03/2016 Cbc With Differential Ord2 Eos ABS# 0.4 K/ul 09/03/2016 Cbc With Differential Ord2 Baso ABS# 0.0 K/ul 09/03/2016 Lipid Ord30 CHOL 120 mg/dL 09/03/2016 Lipid Ord30 HDL 33.0 mg/dl 09/03/2016 Lipid Ord30 TRIG 161 mg/dL 09/03/2016 Lipid Ord30 LDL 55 mg/dL 09/03/2016 Lipid Ord30 C/HDL 3.6 Ratio 09/03/2016 %Hba1C Cma900 % HbA1c 14781-2 7.5 % 09/03/2016 %Hba1C Erk099 Gluc Ave 169 mg/dL 09/03/2016 Tsh Ord6 hTSH II 1.50 uIU/mL 05/23/2016 %Hba1C Ytu262 % HbA1c 51534-6 7.6 % 05/23/2016 %Hba1C Msd724 Gluc Ave 171 mg/dL 05/23/2016 Comp Metabolic Cdz164 NA 135 mEq/L 05/23/2016 Comp Metabolic Hlp936 K 4.4 mEq/L 05/23/2016 Comp Metabolic Cld950 CL 99 mEq/L 05/23/2016 Comp Metabolic Nvh146 CO2 28.0 mEq/L 05/23/2016 Comp Metabolic Eso301 AN ION GAP 12 05/23/2016 Comp Metabolic Ukg272 GL UCOSE 257 mg/dL 05/23/2016 Comp Metabolic Fqt753 Cr eat 0.8 mg/dL 05/23/2016 Comp Metabolic Hud098 eG FR 95 ml/min/1.73m2 05/23 Comp Metabolic Nsi085 BUN 11 mg/dL 05/23/2016 Comp Metabolic Kbh061 B/ C Ratio 13.3 Ratio 05/23/2016 Comp Metabolic Gnu066 CA LCIUM 9.0 mg/dL 05/23/2016 Comp Metabolic Cjb411 AL K PHOS 82 U/L 05/23/2016 Comp Metabolic Kit146 T(SGOT) 21 U/L 05/23/2016 Comp Metabolic Ekg047 AL T(SGPT) 20 U/L 05/23/2016 Comp Metabolic Wql774 BI LI T 0.3 mg/dL 05/23/2016 Comp Metabolic Dtx214 AL BUMIN 4.0 g/dL 05/23/2016 Comp Metabolic Qtw796 TP RO 6.4 g/dL 05/23/2016 Comp Metabolic Bby709 GL OB 2.4 g/dL 05/23/2016 Comp Metabolic Chv427 A/ G Ratio 1.6 Ratio 05/23/2016 Comp Metabolic Zqh998 Os mo 278 mOsmo 05/23/2016 Cbc With [...] 34.5 pg 05/23/2016 Cbc With Differential Ord2 [place]% 6.1 % 05/23/2016 Cbc With Differential Ord2 [...] 2.38 K/ul 05/23/2016 Cbc With Differential Ord2 [place] ABS# 0.4 K/ul 05/23/2016 Cbc With Differential Ord2 Eos ABS# 0.2 K/ul 05/23/2016 Cbc With Differential Ord2 Baso ABS# 0.0 K/ul 05/23/2016 B12 Fpo827 B12 597.00 pg/ml 05/23/2016 Metabolic Ord15 NA [...] 0.92 uIU/mL 07/29/2015 Vitamin D 25 Oh Hvl4651 VITAMIN D, 25 HYDROXY 26.93 ng/mL 07/29/2015 %Hba1C Ucq339 % HbA1c 08207-4 8.8 % 07/29/2015 %Hba1C Hfv998 Gluc Ave 206 mg/dL 07/29/2015 Cbc With [...] Ord2 RDW 14.9 % 07/29/2015 Comp Metabolic Gse461 NA 138 mEq/L 07/29/2015 Comp Metabolic Omi935 K 4.4 mEq/L 07/29/2015 Comp Metabolic Nwb184 CL 102 mEq/L 07/29/2015 Comp Metabolic Etw734 CO2 28.0 mEq/L 07/29/2015 Comp Metabolic Stg702 AN ION GAP 12 07/29/2015 Comp Metabolic Zze828 GL UCOSE 261 mg/dL 07/29/2015 Comp Metabolic Wxy238 Cr eat 1.0 mg/dL 07/29/2015 Comp Metabolic Twb320 eG FR 77 ml/min/1.73m2 07/29 Comp Metabolic Gyp082 BUN 13 mg/dL 07/29/2015 Comp Metabolic Oix254 B/ C Ratio 13.0 Ratio 07/29/2015 Comp Metabolic Xht822 CA LCIUM 9.1 mg/dL 07/29/2015 Comp Metabolic Par270 AL K PHOS 64 U/L 07/29/2015 Comp Metabolic Ghg281 T(SGOT) 20 U/L 07/29/2015 Comp Metabolic Tlg903 AL T(SGPT) 22 U/L 07/29/2015 Comp Metabolic Kgr071 BI LI T 0.4 mg/dL 07/29/2015 Comp Metabolic Jcb189 AL BUMIN 4.0 g/dL 07/29/2015 Comp Metabolic Pye885 TP RO 6.1 g/dL 07/29/2015 Comp Metabolic Ntl196 GL OB 2.1 g/dL 07/29/2015 Comp Metabolic Gup869 A/ G Ratio 1.9 Ratio 07/29/2015 Comp Metabolic Vqx621 Os mo 285 mOsmo 07/29/2015 Cbc With [...] Ord2 RDW 13.1 % 05/06/2015 Comp Metabolic Ybs484 NA 134 mEq/L 05/06/2015 Comp Metabolic Jtz441 K 4.4 mEq/L 05/06/2015 Comp Metabolic Fhd890 CL 98 mEq/L 05/06/2015 Comp Metabolic Nvr112 CO2 29.0 mEq/L 05/06/2015 Comp Metabolic Xyt065 AN ION GAP 11 05/06/2015 Comp Metabolic Amt610 GL UCOSE 321 mg/dL 05/06/2015 Comp Metabolic Dne256 Cr eat 1.0 mg/dL 05/06/2015 Comp Metabolic Nki732 eG FR 78 ml/min/1.73m2 05/06 Comp Metabolic Ggh116 BUN 20 mg/dL 05/06/2015 Comp Metabolic Evu547 B/ C Ratio 20.4 Ratio 05/06/2015 Comp Metabolic Sco924 CA LCIUM 9.5 mg/dL 05/06/2015 Comp Metabolic Ezk225 AL K PHOS 62 U/L 05/06/2015 Comp Metabolic Nuf959 T(SGOT) 21 U/L 05/06/2015 Comp Metabolic Con072 AL T(SGPT) 37 U/L 05/06/2015 Comp Metabolic Bmp952 BI LI T 0.4 mg/dL 05/06/2015 Comp Metabolic Msi776 AL BUMIN 3.8 g/dL 05/06/2015 Comp Metabolic Foa887 TP RO 6.1 g/dL 05/06/2015 Comp Metabolic Icq354 GL OB 2.3 g/dL 05/06/2015 Comp Metabolic Bjg084 A/ G Ratio 1.7 Ratio 05/06/2015 Comp Metabolic Ndm457 Os mo 283 mOsmo 05/06/2015 Tsh Ord6 hTSH II 1.65 uIU/mL 02/18/2015 B12 Vyv459 B12 605.00 pg/ml 02/18/2015 %Hba1C Hdc014 % HbA1c 39538-5 8.3 % 02/18/2015 %Hba1C Cum289 Gluc Ave 192 mg/dL 02/18/2015 Cbc With [...] Ord2 RDW 13.9 % 02/17/2015 Comp Metabolic Dsa211 NA 137 mEq/L 02/17/2015 Comp Metabolic Kis180 K 4.4 mEq/L 02/17/2015 Comp Metabolic Naf720 CL 100 mEq/L 02/17/2015 Comp Metabolic Kph994 CO2 31.0 mEq/L 02/17/2015 Comp Metabolic Per392 AN ION GAP 10 02/17/2015 Comp Metabolic Dex137 GL UCOSE 307 mg/dL 02/17/2015 Comp Metabolic Yyx570 Cr eat 1.0 mg/dL 02/17/2015 Comp Metabolic Qjv193 eG FR 74 ml/min/1.73m2 02/17 Comp Metabolic Cve418 BUN 22 mg/dL 02/17/2015 Comp Metabolic Ctb921 B/ C Ratio 21.4 Ratio 02/17/2015 Comp Metabolic Kyy127 CA LCIUM 9.5 mg/dL 02/17/2015 Comp Metabolic Dbw147 AL K PHOS 78 U/L 02/17/2015 Comp Metabolic Fyj308 T(SGOT) 18 U/L 02/17/2015 Comp Metabolic Ujd942 AL T(SGPT) 32 U/L 02/17/2015 Comp Metabolic Bzf873 BI LI T 0.5 mg/dL 02/17/2015 Comp Metabolic Vbh959 AL BUMIN 4.3 g/dL 02/17/2015 Comp Metabolic Nul768 TP RO 6.7 g/dL 02/17/2015 Comp Metabolic Rcu438 GL OB 2.4 g/dL 02/17/2015 Comp Metabolic Oml024 A/ G Ratio 1.8 Ratio 02/17/2015 Comp Metabolic Bhi762 Os mo 289 mOsmo 02/17/2015 Review of [...] smoking 02/17/2015 Respiratory cough 2014 Respiratory dyspnea /0 04/2015 Genitourinary/Nephrology No dysuria 02/17/2015 Genitourinary/Nephrology No [...] benign 09/02/2018 None Full Exam - General 1995 [...] inspection of skin Location: face 03/07/2015 on baptism, cheeks,actinic keratosis with irritation on left cheek - left baptism - croptherapy on these two lesions - [...] Procedure Codes Date THER/PROPH/DIAG INJ SC/IM CPT-4: 41904 09/23/2018 THER/PROPH/DIAG INJ SC/IM CPT-4: 18402 09/02/2018 THER/PROPH/DIAG INJ SC/IM CPT-4: 00498 08/21/2018 THER/PROPH/DIAG INJ SC/IM CPT-4: 89186 08/08/2018 THER/PROPH/DIAG INJ SC/IM CPT-4: 27902 07/28/2018 THER/PROPH/DIAG INJ SC/IM CPT-4: 61054 07/16/2018 THER/PROPH/DIAG INJ SC/IM CPT-4: 74540 07/02/2018 PPPS, SUBSEQ VISIT CPT- 4: G0439 06/30/2018 THER/PROPH/DIAG INJ SC/IM CPT-4: 37619 06/24/2018 THER/PROPH/DIAG INJ SC/IM CPT-4: 79115 06/13/2018 ADMIN INFLUENZA VIRU S VAC CPT-4: G0008 06/06/2018 FLU VACC PRSV FREE I NC ANTIG CPT-4: 84904 06/06/2018 THER/PROPH/DIAG INJ SC/IM CPT-4: 31879 06/05/2018 THER/PROPH/DIAG INJ SC/IM CPT-4: 95277 05/30/2018 THER/PROPH/DIAG INJ SC/IM CPT-4: 05879 05/22/2018 THER/PROPH/DIAG INJ SC/IM CPT-4: 91290 05/12/2018 THER/PROPH/DIAG INJ SC/IM CPT-4: 90176 05/02/2018 THER/PROPH/DIAG INJ SC/IM CPT-4: 78458 04/24/2018 THER/PROPH/DIAG INJ SC/IM CPT-4: 21088 04/17/2018 KETOROLAC TROMETHAMI NE INJ CPT-4: J1885 03/07/2018 URINALYSIS NONAUTO W /O SCOPE CPT-4: 74137 03/07/2018 THER/PROPH/DIAG INJ SC/IM CPT-4: 16502 02/20/2018 TRIAMCINOLONE ACET I [place] NOS CPT-4: J3301 01/30/2018 THER/PROPH/DIAG INJ SC/IM CPT-4: 84563 01/17/2018 TOBACCO-USE TEST TUBE MAKER 3-[address]: 039186436 CPT-4: G0436 04/25/2017 ADMIN INFLUENZA VIRU S VAC CPT-4: G0008 04/25/2017 ADMIN PNEUMOCOCCAL V ACCINE SNOMED CT: 73296680 CPT-4: G0009 04/25/2017 PNEUMOCOCCAL VACC [address]: 47816948 CPT-4: 82284 04/25/2017 FLU VACC PRSV FREE I NC ANTIG CPT-4: 83902 04/25/2017 ADMIN INFLUENZA VIRU S VAC CPT-4: G0008 05/22/2016 FLU VACC 4 TELLY 3 YRS PLUS IM Formatting Model/CDA Sections, Assigned to/Angela Clemons SNOMED CT: 65213267 CPT-4: 22464Ccmwdls 05/22/2016 TOBACCO-USE TEST TUBE MAKER 3-[address]: 350855154 CPT-4: G0436 11/25/2015 URINALYSIS NONAUTO W /O SCOPE CPT-4: 51834 05/09/2015 TRIAMCINOLONE ACET I [place] NOS CPT-4: J3301 04/12/2015 DESTRUCT PREMALG LESION CPT-4: 36450 03/07/2015 DESTRUCT PREMALG LES 2-14 CPT-4: 87661 03/07/2015 REMOVE IMPACTED EAR WAX UNI CPT-4: 77865 12/31/2014 THER/PROPH/DIAG INJ SC/IM CPT-4: 78009 12/23/2014 TRIAMCINOLONE ACET I [place] NOS CPT-4: J3301 12/23/2014 Vital Signs Date Vital 09/02/2018 Blood Pressure 1: 140/80 Code: 8480-6 BMI: 21.2 Code: 55741-3 Heart Rate 1: 68 bpm Height: 5'11" SpO2: 97% Weight: 152 lbs 06/30/2018 BMI: 21.8 Code: 41637-0 Height: 5'11" Weight: 156 lbs 06/06/2018 Blood Pressure 1: 128/76 Code: 8480-6 BMI: 22.0 Code: 03182-7 Heart Rate 1: 81 bpm Height: 5'11" SpO2: 92% Weight: 158 lbs 04/04/2018 Blood Pressure 1: 124/70 Code: 8480-6 BMI: 20.8 Code: 99226-4 Heart Rate 1: 65 bpm Height: 5'11" SpO2: 95% Weight: 149 lbs 03/07/2018 Blood Pressure 1: 148/70 Code: 8480-6 BMI: 21.2 Code: 89105-1 Heart Rate 1: 66 bpm Height: 5'11" SpO2: 94% Weight: 152 lbs 02/20/2018 Blood Pressure 1: 134/58 Code: 8480-6 BMI: 20.5 Code: 86174-8 Heart Rate 1: 61 bpm Height: 5'11" SpO2: 92% Weight: 147 lbs 01/30/2018 Blood Pressure 1: 158/68 Code: 8480-6 BMI: 21.5 Code: 22996-6 Heart Rate 1: 71 bpm Height: 5'11" SpO2: 92% Weight: 154 lbs 01/14/2018 Blood Pressure 1: 156/70 Code: 8480-6 Height: Weight: 01/13/2018 Blood Pressure 1: 148/62 Code: 8480-6 BMI: 20.9 Code: 78220-6 Heart Rate 1: 54 bpm Height: 5'11" SpO2: 97% Weight: 150 lbs 11/19/2017 Blood Pressure 1: 150/60 Code: 8480-6 BMI: 21.8 Code: 55133-6 Heart Rate 1: 63 bpm Height: 5'11" SpO2: 98% Weight: 156 lbs 10/02/2017 Blood Pressure 1: 168/60 Code: 8480-6 BMI: 21.9 Code: 65967-7 Heart Rate 1: 52 bpm Height: 5'11" SpO2: 97% Weight: 157 lbs 07/23/2017 Blood Pressure 1: 170/70 Code: 8480-6 BMI: 21.8 Code: 66543-2 Heart Rate 1: 65 bpm Height: 5'11" SpO2: 98% Weight: 156 lbs 04/25/2017 Blood Pressure 1: 138/60 Code: 8480-6 BMI: 21.6 Code: 42122-8 Heart Rate 1: 55 bpm Height: 5'11" SpO2: 93% Weight: 155 lbs 02/19/2017 Blood Pressure 1: 138/64 Code: 8480-6 BMI: 21.3 Code: 64193-1 Heart Rate 1: 52 bpm Height: 5'11" SpO2: 96% Weight: 152 lbs 8 oz 01/21/2017 Blood Pressure 1: 160/68 Code: 8480-6 BMI: 21.3 Code: 02513-0 Heart Rate 1: 62 bpm Height: 5'11" SpO2: 96% Weight: 153 lbs 12/20/2016 Blood Pressure 1: 124/66 Code: 8480-6 BMI: 21.5 Code: 00483-4 Height: 5'11" Weight: 154 lbs 08/23/2016 Blood Pressure 1: 142/52 Code: 8480-6 BMI: 21.2 Code: 28240-8 Heart Rate 1: 54 bpm Height: 5'11" SpO2: 96% Weight: 152 lbs 05/22/2016 Blood Pressure 1: 130/76 Code: 8480-6 BMI: 21.5 Code: 89077-1 Heart Rate 1: 78 bpm Height: 5'11" SpO2: 92% Weight: 154 lbs 02/24/2016 Blood Pressure 1: 128/80 Code: 8480-6 BMI: 21.2 Code: 07656-8 Heart Rate 1: 74 bpm Height: 5'11" SpO2: 96% Weight: 152 lbs 01/27/2016 Blood Pressure 1: 144/60 Code: 8480-6 BMI: 21.2 Code: 63049-6 Heart Rate 1: 74 bpm Height: 5'11" SpO2: 97% Weight: 152 lbs 11/25/2015 Blood Pressure 1: 110/52 Code: 8480-6 BMI: 21.9 Code: 37568-1 Heart Rate 1: 65 bpm Height: 5'11" SpO2: 92% Weight: 157 lbs 07/28/2015 Blood Pressure 1: 138/62 Code: 8480-6 BMI: 21.8 Code: 88436-8 Heart Rate 1: 63 bpm Height: 5'11" SpO2: 91% Weight: 156 lbs 05/26/2015 Blood Pressure 1: 120/58 Code: 8480-6 BMI: 21.5 Code: 72013-7 Heart Rate 1: 99 bpm Height: 5'11" SpO2: 96% Weight: 154 lbs 05/06/2015 Blood Pressure 1: 120/58 Code: 8480-6 BMI: 21.2 Code: 01273-6 Heart Rate 1: 66 bpm Height: 5'11" SpO2: 96% Weight: 152 lbs 04/25/2015 Blood Pressure 1: 136/62 Code: 8480-6 BMI: 21.2 Code: 28428-1 Heart Rate 1: 63 bpm Height: 5'11" SpO2: 97% Weight: 152 lbs 04/12/2015 Blood Pressure 1: 160/58 Code: 8480-6 BMI: 21.6 Code: 92123-1 Heart Rate 1: 62 bpm Height: 5'11" Weight: 155 lbs 03/24/2015 Blood Pressure 1: 138/68 Code: 8480-6 BMI: 22.0 Code: 06008-8 Heart Rate 1: 65 bpm Height: 5'11" SpO2: 96% Weight: 158 lbs 03/07/2015 Blood Pressure 1: 116/52 Code: 8480-6 BMI: 22.2 Code: 91175-9 Heart Rate 1: 64 bpm Height: 5'11" SpO2: 97% Weight: 159 lbs 02/17/2015 Blood Pressure 1: 148/58 Code: 8480-6 BMI: 21.3 Code: 84022-8 Heart Rate 1: 63 bpm Height: 5'11" SpO2: 97% Weight: 153 lbs 12/31/2014 Blood Pressure 1: 100/60 Code: 8480-6 BMI: 21.8 Code: 80384-3 Heart Rate 1: 68 bpm Height: 5'11" Weight: 156 lbs 12/23/2014 Blood Pressure 1: 148/64 Code: 8480-6 BMI: 21.9 Code: 93384-7 Heart Rate 1: 64 bpm Height: 5'11" [...] Encounters Encounter Performer Loca tion Codes Date ([id number]) [id number] EST. P ATIENT, LEVEL IV Diagnosis: Essential (primary) hypertension[ICD10: I10] Diagnosis: Chronic obstructive pulmonary disease, unspecified[ICD10: J44.9] Diagnosis: Type 2 diabetes mellitus with hyperglycemia[ICD10: E11.65] Diagnosis: Vitamin D deficiency, unspecified[ICD10: E55.9] Diagnosis: Mixed hyperlipidemia[ICD10: E78.2] Diagnosis: Testicular dysfunction, unspecified[ICD10: E29.9] Karmen Ash MD, [facility] CPT-4: 96340 09/02/2018 ([id number]) [id number] EST. P ATIENT, LEVEL IV Diagnosis: Cellulitis of face[ICD10: L03.211] Diagnosis: Type 2 diabetes mellitus without complications[ICD10: E11.9] Diagnosis: Essential (primary) hypertension[ICD10: I10] Diagnosis: Encounter for immunization[ICD10: Z23] Karmen Ash MD, [facility] CPT-4: 20874 06/06/2018 ([id number]) [id number] EST. P ATIENT, LEVEL IV Diagnosis: Essential (primary) hypertension[ICD10: I10] Diagnosis: Chronic obstructive pulmonary disease, unspecified[ICD10: J44.9] Diagnosis: Testicular dysfunction, unspecified[ICD10: E29.9] Diagnosis: Type 2 diabetes mellitus with hyperglycemia[ICD10: E11.65] Karmen Ash MD, [facility] CPT-4: 47499 04/04/2018 ([id number]) 80001 EST. P ATIENT, LEVEL III Diagnosis: Low back pain[ICD10: M54.5] Diagnosis: Dysuria[ICD10: R30.0] Karmen Ash MD, [facility] CPT-4: 73919 03/07/2018 ([id number]) 65613 EST. P ATIENT, LEVEL IV Diagnosis: Essential (primary) hypertension[ICD10: I10] Diagnosis: Chronic obstructive pulmonary disease, unspecified[ICD10: J44.9] Diagnosis: Abnormal weight loss[ICD10: R63.4] Diagnosis: Low back pain[ICD10: M54.5] Diagnosis: Testicular dysfunction, unspecified[ICD10: E29.9] Diagnosis: Type 2 diabetes mellitus with hyperglycemia[ICD10: E11.65] Karmen Ash MD, [facility] CPT-4: 10030 02/20/2018 ([id number]) 75504 EST. P ATIENT, LEVEL III Diagnosis: Chronic obstructive pulmonary disease with (acute) exacerbation[ICD10: J44.1] Karmen sAh MD, [facility] CPT-4: 85993 01/30/2018 11787 EST. PATIENT, LEVEL II Diagnosis: Insect bite (nonvenomous), left lower leg, initial encounter[ICD10: S80.862A] Karmen Ash MD, [facility] CPT-4: 45032 01/14/2018 ([id number]) [id number] EST. P ATIENT, LEVEL IV Diagnosis: Type 2 diabetes mellitus with hyperglycemia[ICD10: E11.65] Diagnosis: Chronic obstructive pulmonary disease, unspecified[ICD10: J44.9] Diagnosis: Other fatigue[ICD10: R53.83] Karmen Ash MD, [facility] CPT- 4: 92081 01/13/2018 ([id number]) 95601 EST. P ATIENT, LEVEL IV Diagnosis: Type 2 diabetes mellitus with hyperglycemia[ICD10: E11.65] Diagnosis: Vitamin D deficiency, unspecified[ICD10: E55.9] Diagnosis: Essential (primary) hypertension[ICD10: I10] Diagnosis: Abdominal distension (gaseous)[ICD10: R14.0] Diagnosis: Drug induced constipation[ICD10: K59.03] Karmen Ash MD, [facility] [facility] CPT-[facility]: 00320 11/19/2017 [id number] EST. PATIENT, LEVEL IV Diagnosis: Low back pain[ICD10: M54.5] Diagnosis: Chronic obstructive pulmonary disease, unspecified[ICD10: J44.9] Brunilda Ash MD, [facility] CPT-4: 07542 10/02/2017 ([id number]) 71535 EST. P ATIENT, LEVEL IV Diagnosis: Essential (primary) hypertension[ICD10: I10] Diagnosis: Type 2 diabetes mellitus with hyperglycemia[ICD10: E11.65] Diagnosis: Vitamin D deficiency, unspecified[ICD10: E55.9] Diagnosis: Mixed hyperlipidemia[ICD10: E78.2] Kramen Ash MD, [facility] CPT-4: 35764 07/23/2017 ([id number]) 73112 EST. P ATIENT, LEVEL IV Diagnosis: Essential (primary) hypertension[ICD10: I10] Diagnosis: Type 2 diabetes mellitus with hyperglycemia[ICD10: E11.65] Diagnosis: Chronic obstructive pulmonary disease, unspecified[ICD10: J44.9] Diagnosis: Nicotine dependence, unspecified, uncomplicated[ICD10: F17.200] Diagnosis: Encounter for immunization[ICD10: Z23] Karmen Ash MD, [facility] CPT-4: 55433 04/25/2017 ([id number]) 69591 EST. P ATIENT, LEVEL IV Diagnosis: Type 2 diabetes mellitus with hyperglycemia[ICD10: E11.65] Diagnosis: Essential (primary) hypertension[ICD10: I10] Diagnosis: Anemia, unspecified[ICD10: D64.9] Karmen Ash MD, [facility] CPT- 4: 50929 02/19/2017 ([id number]) 36586 EST. P ATIENT, LEVEL IV Diagnosis: Slow transit constipation[ICD10: K59.01] Diagnosis: Gastro-esophageal reflux disease without esophagitis[ICD10: K21.9] Diagnosis: Essential (primary) hypertension[ICD10: I10] Karmen Ash MD, [facility] CPT-4: 82508 01/21/2017 ([id number]) 98441 EST. P ATIENT, LEVEL IV Diagnosis: Type 2 diabetes mellitus with hyperglycemia[ICD10: E11.65] Diagnosis: Vitamin D deficiency, unspecified[ICD10: E55.9] Diagnosis: Essential (primary) hypertension[ICD10: I10] Diagnosis: Chronic obstructive pulmonary disease, unspecified[ICD10: J44.9] Karmen Ash MD, [facility] CPT-4: 89172 12/20/2016 ([id number]) 19342 EST. P ATIENT, LEVEL IV Diagnosis: Type 2 diabetes mellitus with hyperglycemia[ICD10: E11.65] Diagnosis: Essential (primary) hypertension[ICD10: I10] Diagnosis: Mixed hyperlipidemia[ICD10: E78.2] Diagnosis: Vitamin D deficiency, unspecified[ICD10: E55.9] Karmen Ash MD, [facility] CPT-4: 98850 08/23/2016 ([id number]) 75613 EST. P ATIENT, LEVEL IV Diagnosis: Type 2 diabetes mellitus with hyperglycemia[ICD10: E11.65] Diagnosis: Essential (primary) hypertension[ICD10: I10] Diagnosis: Chronic obstructive pulmonary disease, unspecified[ICD10: J44.9] Karmen Ash MD, [facility] CPT-4: 51046 05/22/2016 ([id number]) 33765 EST. P ATIENT, LEVEL III Diagnosis: Dysuria[ICD10: R30.0] Diagnosis: Essential (primary) hypertension[ICD10: I10] Karmen Ash MD, [facility] CPT-4: 21833 02/24/2016 ([id number]) 82183 EST. P ATIENT, LEVEL IV Diagnosis: Gastro-esophageal reflux disease without esophagitis[ICD10: K21.9] Diagnosis: Slow transit constipation[ICD10: K59.01] Diagnosis: Type 2 diabetes mellitus with hyperglycemia[ICD10: E11.65] Karmen Ash MD, [facility] CPT-4: 47408 01/27/2016 ([id number]) 80983 EST. P ATIENT, LEVEL IV Diagnosis: Essential (primary) hypertension[ICD10: I10] Diagnosis: Type 2 diabetes mellitus with hyperglycemia[ICD10: E11.65] Diagnosis: Vitamin D deficiency, unspecified[ICD10: E55.9] Diagnosis: Chronic obstructive pulmonary disease, unspecified[ICD10: J44.9] Diagnosis: Mixed hyperlipidemia[ICD10: E78.2] Diagnosis: Tobacco use[ICD10: Z72.0] Karmen Ash MD, [facility] CPT- 4: 71340 11/25/2015 ([id number]) 11538 EST. P ATIENT, LEVEL IV Diagnosis: Type 2 diabetes mellitus with hyperglycemia[ICD10: E11.65] Diagnosis: Essential (primary) hypertension[ICD10: I10] Diagnosis: Vitamin D deficiency, unspecified[ICD10: E55.9] Karmen Ash MD, [facility] CPT-4: 77082 07/28/2015 ([id number]) 60173 EST. P ATIENT, LEVEL III Diagnosis: Type 2 diabetes mellitus with hyperglycemia[ICD10: E11.65] Diagnosis: Essential (primary) hypertension[ICD10: I10] Violeta Ash MD, [facility] CPT-4: 81627 05/26/2015 ([id number]) 63245 EST. P ATIENT, LEVEL III Diagnosis: DIABETES TYPE II[ICD9: 250.00] Diagnosis: COPD (chronic obstructive pulmonary disease)[ICD9: 496] Diagnosis: ESSENTIAL HYPERTENSION[ICD9: 401.9] Diagnosis: Cough[ICD9: 786.2] Violeta Ash MD, [facility] CPT-4: 22063 05/06/2015 ([id number]) 52115 EST. P ATIENT, LEVEL III Diagnosis: COPD (chronic obstructive pulmonary disease)[ICD9: 496] Diagnosis: DIABETES TYPE II[ICD9: 250.00] Diagnosis: Muscle ache[ICD9: 729.1] Karmen Ash MD, [facility] CPT- 4: 43527 04/25/2015 ([id number]) 60911 EST. P ATIENT, LEVEL III Diagnosis: ACTINIC KERATOSIS[ICD9: 702.0] Diagnosis: COPD (chronic obstructive pulmonary disease)[ICD9: 496] Diagnosis: DIABETES TYPE II[ICD9: 250.00] Diagnosis: ACUTE URI[ICD9: 465.9] Violeta Ash MD, [facility] CPT-4: 13333 04/12/2015 ([id number]) 04981 EST. P ATIENT, LEVEL III Diagnosis: DIABETES TYPE II[ICD9: 250.00] Violeta Ash MD, [facility] CPT-4: 02330 03/24/2015 ([id number]) 26830 EST. P ATIENT, LEVEL IV Diagnosis: DIABETES TYPE II[ICD9: 250.00] Diagnosis: Hypoglycemia[ICD9: 251.2] Diagnosis: Skin texture changes[ICD9: 782.8] Violeta Ash MD, [facility] CPT-4: 74066 03/07/2015 ([id number]) 35784 EST. P ATIENT, LEVEL IV Diagnosis: COPD (chronic obstructive pulmonary disease)[ICD9: 496] Diagnosis: Fatigue[ICD9: 780.79] Diagnosis: Insulin dependent diabetes mellitus[ICD9: 250.00] Diagnosis: Unsteady gait[ICD9: 781.2] Maame sAh MD, [facility] CPT-4: 13809 02/17/2015 ([id number]) 08810 EST. P ATIENT, LEVEL IV Diagnosis: BPPV (benign paroxysmal positional vertigo)[ICD9: 386.11] Diagnosis: Impacted cerumen[ICD9: 380.4] Diagnosis: ESSENTIAL HYPERTENSION[ICD9: 401.9] Diagnosis: Insulin dependent diabetes mellitus[ICD9: 250.00] [facility] CPT-4: 18370 12/23/2014 ([id number]) OFFICE VISI T, [facility] - LEVEL 4 Diagnosis: Insulin dependent diabetes mellitus[ICD9: 250.00] Diagnosis: BPPV (benign paroxysmal positional vertigo)[ICD9: 386.11] Diagnosis: COPD (chronic obstructive pulmonary disease)[ICD9: 496] Diagnosis: Tobacco abuse[ICD9: 305.1] Diagnosis: Osteoarthritis[ICD9: 715.90] [facility] CPT- 4: 57929 12/09/2014 Plan of Care Planned Activity Notes C odes Status Date Appointment: Injection 09/23/2018 Patient Education: Patient Medication [...] to medications. 09/02/2018 Appointment: [facility] [phone] [phone] (15 min) [...] care surrogate. 06/30/2018 Appointment: [facility]arm[facility] Espinal [facility] [phone] [facility] [phone] [facility] - Annual Wellness Visit [...] in pain. 06/06/2018 Appointment: Karmen Espinal WPtel: [facility] [phone] (15 min) Moderate 06/06/2018 Patient Education: Patient [...] months 04/04/2018 Appointment: Karmen Espinal WPtel: [phone] [phone] (15 min) Moderate 04/04/2018 Patient Education: Patient Medication Summary Completed 04/04/2018 Care Plan: Cbc With Differential Pending 04/04/2018 Care Plan: Testosterone repeat in 2 months Pending 04/04/2018 Appointment: Karmen Espinal WPtel: [phone] [phone] [place] (15 min) Moderate 03/25/2018 Visit Plan: Low back pain -history of kidney stone-UA negative today -increase fluids and call if pain does not resolve or if any worse. 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 01/30/2018 Appointment: Karmen Espinal WPtel: [phone] [phone] (15 min) Moderate 01/30/2018 Patient Education: Patient Medication Summary Completed 01/30/2018 Appointment: Karmen Espinal WPtel: [address] [place] [address] (15 min) Moderate 01/28/2018 Appointment: Injection 01/17/2018 Patient Education: Patient Medication Summary Completed 01/17/2018 Visit Plan: Cellulitis - start oral antibiotics as directed, return to clinic as previously directed, call for acute change in symptoms, worsening redness, warmth, discharge. 01/14/2018 Appointment: Karmen Espinal WPtel: [address] [place] [address] (10 min) Simple 01/14/2018 Patient Education: Patient [...] less controlled. 01/13/2018 Appointment: Karmen Espinal WPtel: [address] [place] [address] (15 min) Moderate 01/13/2018 Patient Education: Patient Medication Summary Completed 01/13/2018 Referral: Hugo Villatoro HPtel:[phone] [place] [address] Patient's informed. Referral info f porfirio. Completed 12/04/2017 Visit Plan: Diabetes Mellitus - con purvilled [...] change in blood pressure readings at home. Mbfrxeoc-tpzbrx-gasqr to see Dr Villatoro Constipation-start linzess daily 11/19/2017 Appointment: Karm[facility] Espinal [facility]Ptel: [phone] [facility] [phone] [place] (30 min) Complex 11/19/2017 Patient Education: Patient Medication Summary Completed 11/19/2017 Care Plan: Referral Order bloating, nausea SNOMED-CT : [id number] Pending 11/19/2017 Visit Plan: Low back pain- [...] changes. 10/02/2017 Appointment: Brunilda Maravilla WPtel: [phone] [facility] [place] [place] (15 min) Moderate 10/02/2017 Patient Education: [...] less controlled. 07/23/2017 Appointment: Karmen Espinal WPtel: [address] [place], [place] [phone] (30 min) [facility] 07/23/2017 Patient Education: Patient Medication Summary Completed 07/23/2017 Patient Education: Smoking and Tobacco Addiction Completed 07/23/2017 Patient Education: Hypertension Completed 07/23/2017 Visit Plan: Hypertension - well con virgieed - continue with current medications, continue with [...] Espinal WPtel[facility] [phone] [facility] [phone] (30 min) [...] readings are starting to become less controlled. Cumsat-koirulr-bhjet labs 02/19/2017 Appointment: Karmen Espinal WPtel: [phone] [facility] [phone] (30 min) Complex 02/19/2017 Patient Education: Patient [...] Espinal WPtel: [phone] [facility] [phone] (30 min) Complex 01/21/2017 Patient Education: Patient Medication Summary Completed 01/21/2017 Patient Education: Smoking and Tobacco Addiction Completed 01/21/2017 Patient Education: Hypertension Completed 01/21/2017 Care Plan: Referral Order SNOMED-CT : [id number] Pending 01/21/2017 Visit Plan: Diabetes Mellitus - [...] changes. 12/20/2016 Appointment: Karmen Espinal WPtel: [phone] [facility] [phone] (30 min) Complex 12/20/2016 Patient Education: Patient Medication Summary Completed 12/20/2016 Patient Education: Smoking and Tobacco Addiction Completed 12/20/2016 Patient Education: Hypertension Completed 12/20/2016 Appointment: Karmen Espinal WPtel: [phone] [facility] [phone] (30 min) Complex 09/06/2016 Visit Plan: Diabetes [...] level 08/23/2016 Appointment: Karmen Espinal WPtel: [phone] [facility] [phone] (30 min) Complex 08/23/2016 Patient Education: Patient [...] changes. 05/22/2016 Appointment: Karmen Espinal WPtel: [phone] [facility] [phone] (30 min) Complex 05/22/2016 Patient Education: Patient Medication Summary Completed 05/22/2016 Patient Education: Smoking and Tobacco Addiction Completed 05/22/2016 Care Plan: Cbc With Differential Ordered 05/22/2016 Care Plan: %Hba1C KIKI C : 57657-1 Ordered 05/22/2016 Care Plan: Tsh Ordered 05/22/2016 [...] with update 02/24/2016 Appointment: Karmen Espinal WPtel: [phone] [phone] (30 min) [...] not improved on this regimen. 01/27/2016 Appointment: Kamren Espinal WPtel: [phone] [facility] [phone] (30 min) Complex 01/27/2016 Patient Education: Patient [...] use medication to assist cessation. [facility] - pt has been counseled about [...] Completed 05/06/2015 Visit Plan: COPD EXACERBATION - LEGAL OPERATIONS MANAGER D is a chronic problem for [...] POTENTIAL SIDE EFFECTS AND WORSENING OF SYMPTOMS. Llxpwahe-vxymykas-PXZJ SIMVASTATIN X 2 WEEKS AND CALL WITH [...] Care Plan: COMPLETE CBC AUTOMATED LOINC : 67107-3 Ordered 03/24/2015 Visit Plan: Diabetes Mellitus - [...] removal. 03/07/2015 Appointment: Violeta Ash WPtel: [phone] (15 min) Moderate 03/07/2015 Patient Education: [...] Care Plan: COMPLETE CBC AUTOMATED LOINC : 96999-8 Ordered 12/23/2014 Visit Plan: BPPV - Benign [...] next appt 12/09/2014 Appointment: Karmen Espinal WPtel: [phone] [facility] [phone] [place] ([place] New Patient 12/09/2014 Patient Education: Patient Medication Summary Completed 12/09/2014 Patient Education: .Amazing charts Parox ysmal positional vertigo Completed 12/09/2014 Patient Education: Smoking and Tobacco Addiction Completed 12/09/2014 Referral: Hugo Villatoro HPtel:[phone] [facility] [place] [place] Referral Appointment Requested Referral: Luis Donohue [...] readings are starting to become less controlled. Chapqs-urppccy-fyvwf labs . Cellulitis - start oral antibiotics [...] change in blood pressure readings at home. Ntzlmlmo-iamihi-ohkxh to see Dr Villatoro Constipation-start linzess daily [...] POTENTIAL SIDE EFFECTS AND WORSENING OF SYMPTOMS. Kywgwmyt-xwhsjfor-PROH SIMVASTATIN X 2 WEEKS AND CALL WITH [...]
--- OUTSIDE RECORDS SUMMARY | 2020-03-29 09:11 | XMS REPORT | CCD ---
Author Author Dick Espinal Organization Violeta Ash MD, [facility] Address [address] [place] [address] Phone Care Team Providers Care Nursing Home Assistant Administrator Name Role Phone PP Unavailable CCM Unavailable Summary Purpose Interface Exchange Insurance Providers Payer name Policy type / Coverage type Covered green party ID Effective Begin Date Effective End Date WPS Medicare Part B Medicare Part B [id number] Unknown Unknown [employer] Medicar e Part B [id number] Unknown Unkn own Family history Father Diagnosis Age At Onset Cancer Unknown Mother Diagnosis Age At Onset Cancer Unknown Social History Social History Element Codes Description Effective Dates Marital status Unknown M arried 12/09/2014 Employment Unknown Retir ed 12/09/[address]: 41578610 Currently smokes tobacco 12/09/2014 Number of years using tobacco Unknown > 50 12/09/2014 Number of cigarettes/day Unknown 30 (Pack and a half) 12/09/[address]: 738904624 Never drinks alcohol 12/09/2014 Allergies, Adverse Reactions, [...] Fill Instructions Xanax 0.5 mg tablet RxNorm: 483964 1 Tablet(s) PO TID 10/03/2018 12/01/2018 Active testosterone cypiona te 200 mg/mL intramuscular oil RxNorm: 3095243 Milliliter(s) IM 09/23/2018 09/23/2018 In active hydrocodone 5 mg-linh taminophen 325 mg tablet RxNorm: 519437 1 Tablet(s) PO Q6-8H as needed 09/22/2018 10/16/2018 Active testosterone cypiona te 200 mg/mL intramuscular oil RxNorm: 6704170 1/2 Milliliter(s) IM 09/02/2018 09/02/2018 Inactive testosterone enantha te 200 mg/mL intramuscular oil RxNorm: 382731 Milliliter(s) IM 08/21/2018 08/21/2018 In active hydrocodone 5 mg-linh taminophen 325 mg tablet RxNorm: 315063 1 Tablet(s) PO Q6-8H as needed 08/21/2018 09/14/2018 Inactive testosterone cypiona te 200 mg/mL intramuscular oil RxNorm: 5992541 Milliliter(s) IM 08/08/2018 08/08/2018 In active testosterone cypiona te 200 mg/mL intramuscular oil RxNorm: 9169586 1/2 Milliliter(s) IM 07/28/2018 07/28/2018 Inactive hydrocodone 5 mg-linh taminophen 325 mg tablet RxNorm: 741347 1 Tablet(s) PO Q6-8H as needed 07/21/2018 08/14/2018 Inactive testosterone cypiona te 200 mg/mL intramuscular oil RxNorm: 809464 Milliliter(s) IM 07/16/2018 07/16/2018 In active testosterone cypiona te 200 mg/mL intramuscular oil RxNorm: 912063 Milliliter(s) IM 07/02/2018 07/02/2018 In active Xanax 0.5 mg tablet RxNorm: 473550 1 Tablet(s) PO TID 06/27/2018 08/24/2018 Inactive testosterone cypiona te 200 mg/mL intramuscular oil RxNorm: 968669 Milliliter(s) IM 06/24/2018 06/24/2018 In active hydrocodone 5 mg-linh taminophen 325 mg tablet RxNorm: 933095 1 Tablet(s) PO Q6-8H as needed 06/23/2018 07/17/2018 Inactive testosterone cypiona te 200 mg/mL intramuscular oil RxNorm: 536271 Milliliter(s) IM 06/13/2018 06/13/2018 In active testosterone cypiona te 200 mg/mL intramuscular oil RxNorm: 856965 Milliliter(s) IM 06/05/2018 06/05/2018 In active testosterone cypiona te 200 mg/mL intramuscular oil RxNorm: 540027 1/2 Milliliter(s) IM weekly 05/30/2018 09/26/2018 Inactive testosterone cypiona te 200 mg/mL intramuscular oil RxNorm: 161196 Milliliter(s) IM 05/30/2018 05/30/2018 In active testosterone cypiona te 200 mg/mL intramuscular oil RxNorm: 522521 Milliliter(s) IM 05/22/2018 05/22/2018 In active hydrocodone 5 mg-linh taminophen 325 mg tablet RxNorm: 579097 1 Tablet(s) PO Q6-8H as needed 05/20/2018 06/13/2018 Inactive testosterone cypiona te 200 mg/mL intramuscular oil RxNorm: 953332 1/2 Milliliter(s) IM 05/12/2018 05/12/2018 Inactive testosterone cypiona te 200 mg/mL intramuscular oil RxNorm: 921251 Milliliter(s) IM 05/02/2018 05/02/2018 In active testosterone cypiona te 200 mg/mL intramuscular oil RxNorm: 026008 1/2 Milliliter(s) IM weekly 04/24/2018 05/29/2018 Inactive testosterone cypiona te 200 mg/mL intramuscular oil RxNorm: 923406 0.5 Milliliter(s) IM 04/24/2018 04/24/2018 Inactive hydrocodone 5 mg-linh taminophen 325 mg tablet RxNorm: 233974 1 Tablet(s) PO Q6-8H as needed 04/22/2018 05/16/2018 Inactive testosterone cypiona te 200 mg/mL intramuscular oil RxNorm: 860163 1/2 Milliliter(s) IM 04/17/2018 04/17/2018 Inactive testosterone cypiona te 200 mg/mL intramuscular oil RxNorm: 904170 1/2 Milliliter(s) IM weekly 04/16/2018 04/23/2018 Inactive Jardiance 10 mg tablet RxNorm: 8360574 1 Tablet(s) PO daily 04/04/2018 12/29/2018 Active Protonix 40 mg table t,delayed release RxNorm: 011224 1 Tablet(s) PO daily TAKE 1 TABLET BY MOUTH DAILY 04/04/2018 03/29/2019 Active - Ref: [id number] testosterone cypiona te 200 mg/mL intramuscular oil RxNorm: 639742 1 Milliliter(s) IM monthly 04/04/2018 04/15/2018 Inactive hydrocodone 5 mg-linh taminophen 325 mg tablet RxNorm: 500732 1 Tablet(s) PO Q6-8H as needed 03/19/2018 04/12/2018 Inactive Flomax 0.4 mg capsule RxNorm: 026856 1 Capsule(s) PO daily 03/10/2018 03/04/2019 Active Urecholine 25 mg tablet RxNorm: 106486 1 Tablet(s) PO BID 03/10/2018 07/07/2018 Inactive ketorolac 60 mg/2 mL intramuscular solution RxNorm: 8121606 Milliliter(s) IM 03/07/2018 03/07/2018 In active metformin 500 mg tablet RxNorm: 244599 Tablet(s) TAKE 1 TABLET BY MOUTH DAILY 02/20/2018 02/14/2019 Ac tive 1 q am and 1/2 tab q pm hydrocodone 5 mg-linh taminophen 325 mg tablet RxNorm: 740754 1 Tablet(s) PO Q6-8H as needed 02/20/2018 03/16/2018 Inactive Kenalog 40 mg/mL bartolome pension for injection RxNorm: 0534242 1.5 Milliliter(s) In j 01/30/2018 01/30/2018 In active hydrocodone 5 mg-linh taminophen 325 mg tablet RxNorm: 044457 1 Tablet(s) PO Q6-8H as needed 01/23/2018 02/16/2018 Inactive Urecholine 25 mg tablet RxNorm: 054364 1 Tablet(s) PO BID 01/22/2018 03/09/2018 Inactive Flomax 0.4 mg capsule RxNorm: 129251 1 Capsule(s) PO daily 01/22/2018 03/09/2018 Inactive Flomax 0.4 mg capsule RxNorm: 654317 1 Capsule(s) PO daily 01/22/2018 01/21/2018 Inactive Urecholine 25 mg tablet RxNorm: 790089 1 Tablet(s) PO BID 01/22/2018 01/21/2018 Inactive testosterone cypiona te 200 mg/mL intramuscular oil RxNorm: 683282 Milliliter(s) IM 01/17/2018 01/17/2018 In active testosterone cypiona te 200 mg/mL intramuscular oil RxNorm: 855814 1 Milliliter(s) IM monthly 01/17/2018 04/03/2018 Inactive lisinopril 10 mg tablet RxNorm: 107732 TAKE 1 TABLET BY MOUTH TWO TIMES DAILY 01/14/2018 01/08/2019 Ac tive - First Attempt Ref: [id number] doxycycline hyclate 100 mg tablet RxNorm: 591225 1 Tablet(s) PO BID 01/14/2018 01/23/2018 Inactive Xanax 0.5 mg tablet RxNorm: 326332 1 Tablet(s) PO TID 01/08/2018 04/06/2018 Inactive nystatin 100,000 uni t/mL oral suspension RxNorm: 348167 4 Milliliter(s) PO QI D Swish and swallow 01/08/2018 01/07/2018 Inactive nystatin 100,000 uni t/mL oral suspension RxNorm: 696177 4 Milliliter(s) PO QI D Swish and swallow 01/08/2018 01/12/2018 Inactive simvastatin 40 mg ta blet RxNorm: 658605 TAKE 1 TABLET BY MOUT H DAILY AT BEDTIME 12/30/2017 12/24/2018 Ac tive - First Attempt Ref: [id number] metformin 500 mg tablet RxNorm: 089195 TAKE 1 TABLET BY MOUTH DAILY 12/30/2017 02/19/2018 Inactive - First Attempt Ref: [id number] hydrocodone 5 mg-linh taminophen 325 mg tablet RxNorm: 953240 1 Tablet(s) PO Q6-8H as needed 12/25/2017 01/18/2018 Inactive Protonix 40 mg table t,delayed release RxNorm: 656315 Tablet(s) TAKE 1 TABL ET BY MOUTH DAILY 11/20/2017 04/03/2018 Inactive - Ref: [id number] Linzess 72 mcg capsule RxNorm: 8035900 1 Capsule(s) PO daily 11/19/2017 No Stop Date Active hydrocodone 5 mg-linh taminophen 325 mg tablet RxNorm: 989329 1 Tablet(s) PO Q6-8H as needed 11/19/2017 12/13/2017 Inactive hydrocodone 5 mg-linh taminophen 325 mg tablet RxNorm: 342599 1 Tablet(s) PO Q6-8H as needed 10/28/2017 11/18/2017 Inactive Xanax 0.5 mg tablet RxNorm: 954771 1 Tablet(s) PO TID 10/25/2017 12/22/2017 Inactive Xanax 0.5 mg tablet RxNorm: 850615 TAKE ONE TABLET BY MOUTH THREE TIMES A D AY 10/24/2017 12/22/2017 In active hydrocodone 5 mg-linh taminophen 325 mg tablet RxNorm: 406322 1 Tablet(s) PO Q6-8H as needed 09/30/2017 10/24/2017 Inactive Protonix 40 mg table t,delayed release RxNorm: 825787 TAKE 1 TABLET BY MOUT H DAILY 09/16/2017 11/19/2017 In active - Ref: [id number] Yovana SoloStar 300 unit/mL (1.5 mL) subcutaneous insulin pen RxNorm: 5644938 35 Unit(s) SQ QHS 08/30/2017 No Stop Date Active dosage increase hydrocodone 5 mg-linh taminophen 325 mg tablet RxNorm: 769637 1 Tablet(s) PO Q6-8H as needed 08/28/2017 09/29/2017 Inactive hydrocodone 5 mg-linh taminophen 325 mg tablet RxNorm: 827810 1 Tablet(s) PO Q6-8H as needed 07/23/2017 08/24/2017 Inactive lisinopril 10 mg tablet RxNorm: 802973 1 Tablet(s) PO BID Take 1 tablet by mout h daily 07/23/2017 01/13/2018 Inactive hydrocodone 5 mg-linh taminophen 325 mg tablet RxNorm: 181716 1 Tablet(s) PO Q6-8H as needed 06/27/2017 07/22/2017 Inactive Xanax 0.5 mg tablet RxNorm: 070485 1 Tablet(s) PO TID 06/18/2017 10/25/2017 Inactive hydrocodone 5 mg-linh taminophen 325 mg tablet RxNorm: 112826 1 Tablet(s) PO Q6-8H as needed 05/27/2017 06/26/2017 Inactive Levaquin 500 mg tablet RxNorm: 955722 1 Tablet(s) PO daily 05/24/2017 05/23/2017 Inactive Levaquin 500 mg tablet RxNorm: 671565 1 Tablet(s) PO daily 05/24/2017 05/30/2017 Inactive Protonix 40 mg table t,delayed release RxNorm: 373023 Take 1 tablet by mout h daily 04/29/2017 09/15/2017 In active - Ref: [id number] hydrocodone 5 mg-linh taminophen 325 mg tablet RxNorm: 507069 1 Tablet(s) PO Q6-8H as needed 04/25/2017 05/26/2017 Inactive metformin 500 mg tablet RxNorm: 837329 Take 1 tablet by mouth daily 04/08/2017 12/29/2017 Inactive - First Attempt Ref: [id number] hydrocodone 5 mg-linh taminophen 325 mg tablet RxNorm: 174410 1 Tablet(s) PO Q6-8H as needed 03/27/2017 04/24/2017 Inactive hydrocodone 5 mg-linh taminophen 325 mg tablet RxNorm: 166998 1 Tablet(s) PO Q6-8H as needed 02/25/2017 03/26/2017 Inactive Protonix 40 mg table t,delayed release RxNorm: 082964 Tablet(s) Take 1 tabl et by mouth BID 02/25/2017 04/28/2017 Inactive Protonix 40 mg table t,delayed release RxNorm: 381652 Tablet(s) Take 1 tabl et by mouth BID 02/19/2017 02/18/2017 Inactive Protonix 40 mg table t,delayed release RxNorm: 400715 Tablet(s) Take 1 tabl et by mouth BID 02/19/2017 02/24/2017 Inactive lisinopril 10 mg tablet RxNorm: 423714 Take 1 tablet by mouth daily 01/29/2017 07/22/2017 Inactive - First Attempt Ref: [id number] hydrocodone 5 mg-linh taminophen 325 mg tablet RxNorm: 366800 1 Tablet(s) PO Q6-8H as needed 01/25/2017 02/24/2017 Inactive simvastatin 40 mg ta blet RxNorm: 327141 Tablet(s) Take 1 tabl et by mouth daily at bedtime 01/03/2017 12/28/2017 Inactive lisinopril 10 mg tablet RxNorm: 841882 Tablet(s) Take 1 tablet by mouth daily 01/03/2017 01/28/2017 In active Protonix 40 mg table t,delayed release RxNorm: 958591 Tablet(s) Take 1 tabl et by mouth daily 12/28/2016 02/18/2017 Inactive hydrocodone 5 mg-linh taminophen 325 mg tablet RxNorm: 087068 1 Tablet(s) PO Q6-8H as needed 12/26/2016 01/24/2017 Inactive Xanax 0.5 mg tablet RxNorm: 865207 1 Tablet(s) PO TID 12/12/2016 03/11/2017 Inactive simvastatin 40 mg ta blet RxNorm: 949282 Tablet(s) Take 1 tabl et by mouth daily at bedtime 11/30/2016 01/02/2017 Inactive simvastatin 40 mg ta blet RxNorm: 600640 Take 1 tablet by mout h daily at bedtime 11/29/2016 11/29/2016 In active - First Attempt Ref: [id number] Protonix 40 mg table t,delayed release RxNorm: 835333 Take 1 tablet by mout h daily 11/27/2016 12/27/2016 In active - First Attempt Ref: [id number] hydrocodone 5 mg-linh taminophen 325 mg tablet RxNorm: 791798 1 Tablet(s) PO Q6-8H as needed 11/26/2016 12/25/2016 Inactive hydrocodone 5 mg-linh taminophen 325 mg tablet RxNorm: 766420 1 Tablet(s) PO Q8 as needed 10/24/2016 11/25/2016 Inactive Xanax 0.5 mg tablet RxNorm: 997639 1 Tablet(s) PO TID 10/09/2016 12/25/2016 Inactive hydrocodone 5 mg-linh taminophen 325 mg tablet RxNorm: 162449 1 Tablet(s) PO Q8 as needed 09/27/2016 10/23/2016 Inactive lisinopril 10 mg tablet RxNorm: 452995 Take 1 tablet by mouth daily 09/25/2016 01/02/2017 Inactive - First Attempt Ref: [id number] Vitamin D2 50,000 un it capsule RxNorm: 550141 1 Capsule(s) PO QW 09/06/2016 No Stop Date Active hydrocodone 5 mg-linh taminophen 325 mg tablet RxNorm: 221890 1 Tablet(s) PO Q8 as needed 08/28/2016 09/26/2016 Inactive Toujeo SoloStar 300 unit/mL (1.5 mL) subcutaneous insulin pen RxNorm: 2826899 25 Unit(s) SQ QHS 08/23/2016 08/29/2017 Inactive dosage increase hydrocodone 5 mg-linh taminophen 325 mg tablet RxNorm: 015801 1 Tablet(s) PO Q8 as needed 07/26/2016 08/27/2016 Inactive Protonix 40 mg table t,delayed release RxNorm: 987604 Take 1 tablet by mout h daily 07/24/2016 11/26/2016 In active - First Attempt Ref: [id number] hydrocodone 5 mg-linh taminophen 325 mg tablet RxNorm: 770472 1 Tablet(s) PO Q8 as needed 06/19/2016 07/21/2016 Inactive Toujeo SoloStar 300 unit/mL (1.5 mL) subcutaneous insulin pen RxNorm: 4294157 32 Unit(s) SQ QHS 05/30/2016 08/22/2016 Inactive dosage increase hydrocodone 5 mg-linh taminophen 325 mg tablet RxNorm: 969674 1 Tablet(s) PO Q8 as needed 05/22/2016 06/18/2016 Inactive hydrocodone 5 mg-linh taminophen 325 mg tablet RxNorm: 440185 1 Tablet(s) PO Q8 as needed 04/18/2016 05/17/2016 Inactive Protonix 40 mg table t,delayed release RxNorm: 997632 Take 1 tablet by mout h daily 04/05/2016 07/03/2016 In active - Ref: [id number] metformin 500 mg tablet RxNorm: 089380 Take 1 tablet by mouth daily 04/04/2016 07/02/2016 Inactive - Ref: [id number] Xanax 0.5 mg tablet RxNorm: 812471 1 Tablet(s) PO TID 03/30/2016 09/25/2016 Inactive Xanax 0.5 mg tablet RxNorm: 007532 1 Tablet(s) PO TID 03/23/2016 12/25/2016 Inactive hydrocodone 5 mg-linh taminophen 325 mg tablet RxNorm: 071826 1 Tablet(s) PO Q8 as needed 03/06/2016 04/04/2016 Inactive Cipro 500 mg tablet RxNorm: 642300 1 Tablet(s) PO BID 02/24/2016 03/04/2016 Inactive Miralax 17 gram oral powder packet RxNorm: 162143 1 packet PO every oth er day 01/27/2016 No Stop Date Active hydrocodone 5 mg-linh taminophen 325 mg tablet RxNorm: 252203 1 Tablet(s) PO Q8 as needed 01/27/2016 02/25/2016 Inactive lisinopril 10 mg tablet RxNorm: 756585 1 Tablet(s) PO daily 01/12/2016 09/24/2016 Inactive simvastatin 40 mg ta blet RxNorm: 675482 1 Tablet(s) PO QHS 01/12/2016 11/28/2016 Inactive simvastatin 40 mg ta blet RxNorm: 811047 1 Tablet(s) PO QHS 01/11/2016 01/11/2016 Inactive lisinopril 10 mg tablet RxNorm: 057126 1 Tablet(s) PO daily 01/06/2016 01/11/2016 Inactive simvastatin 40 mg ta blet RxNorm: 943706 1 Tablet(s) PO daily 12/28/2015 01/10/2016 Inactive hydrocodone 5 mg-linh taminophen 325 mg tablet RxNorm: 104600 1 Tablet(s) PO Q8 as needed 12/27/2015 01/26/2016 Inactive Xanax 0.5 mg tablet RxNorm: 364638 1 Tablet(s) PO TID 11/30/2015 03/29/2016 Inactive meclizine 25 mg tablet RxNorm: 150513 1 Tablet(s) PO Q6 PRN TAKE ONE TABLET BY MOUTH EVERY 6 HOURS NEEDED 11/25/2015 02/22/2016 Inactive Toujeo SoloStar 300 unit/mL (1.5 mL) subcutaneous insulin pen RxNorm: 3415115 30 Unit(s) SQ QHS 11/25/2015 05/29/2016 Inactive dosage increase omeprazole 20 mg cap jacquelyn,delayed release RxNorm: 413555 1 Capsule(s) PO daily 10/06/2015 01/26/2016 In active Toujeo SoloStar 300 unit/mL (1.5 mL) subcutaneous insulin pen RxNorm: 5291835 35 Unit(s) SQ QHS 08/02/2015 11/24/2015 Inactive dosage increase Vitamin D2 50,000 un it capsule RxNorm: 966027 1 Capsule(s) PO QW 08/02/2015 09/05/2016 Inactive hydrocodone 5 mg-linh taminophen 325 mg tablet RxNorm: 409586 1 Tablet(s) PO Q8 as needed 07/11/2015 12/26/2015 Inactive Xanax 0.5 mg tablet RxNorm: 677707 1 Tablet(s) PO TID 06/30/2015 06/29/2015 Inactive Xanax 0.5 mg tablet RxNorm: 114386 1 Tablet(s) PO TID 06/30/2015 12/25/2015 Inactive hydrocodone 5 mg-linh taminophen 325 mg tablet RxNorm: 519608 1 Tablet(s) PO Q8 as needed 05/06/2015 07/10/2015 Inactive Symbicort 160 mcg-4. 5 mcg/actuation HFA aerosol inhaler RxNorm: 8488819 INH 04/25/2015 No Stop Date Active Levemir FlexTouch 10 0 unit/mL (3 mL) subcutaneous insulin pen RxNorm: 091147 30 Unit(s) SQ QHS 04/25/2015 11/24/2015 Inactive prednisone 20 mg tablet RxNorm: 185239 1 Tablet(s) PO BID 04/25/2015 04/29/2015 Inactive metformin 500 mg tablet RxNorm: 536157 1 Tablet(s) PO daily 04/25/2015 04/03/2016 Inactive amoxicillin 500 mg c apsule RxNorm: 161652 1 Capsule(s) PO TID 04/14/2015 04/13/2015 Inactive amoxicillin 500 mg c apsule RxNorm: 919338 1 Capsule(s) PO TID a nd recommend probiotic tid (otc) 04/14/2015 04/20/2015 Inactive Kenalog 40 mg/mL bartolome pension for injection RxNorm: 4994608 Milliliter(s) Inj 04/12/2015 04/12/2015 In active hydrocodone 5 mg-linh taminophen 325 mg tablet RxNorm: 664400 1 Tablet(s) PO Q8 as needed 03/30/2015 05/05/2015 Inactive Lantus 100 unit/mL s ubcutaneous solution RxNorm: 551602 25 Unit(s) SQ QPM 03/24/2015 04/25/2015 In active meclizine 25 mg tablet RxNorm: 940369 Tablet(s) TAKE ONE TABLET BY MOUTH EVERY 6 HOURS NEEDED 03/08/2015 04/06/2015 Inactive meclizine 25 mg tablet RxNorm: 461444 TAKE ONE TABLET BY MOUTH EVERY 6 HOURS A S NEEDED 02/25/2015 03/03/2015 Inactive Lantus 100 unit/mL s ubcutaneous solution RxNorm: 866538 20 Unit(s) SQ QPM 02/23/2015 03/23/2015 In active Lantus 100 unit/mL s ubcutaneous solution RxNorm: 092747 25 Unit(s) SQ QPM 02/23/2015 02/22/2015 In active hydrocodone 5 mg-linh taminophen 325 mg tablet RxNorm: 916033 1 Tablet(s) PO Q8 as needed 02/17/2015 03/29/2015 Inactive Xanax 0.5 mg tablet RxNorm: 987512 1 Tablet(s) PO TID 02/03/2015 06/29/2015 Inactive Lantus 100 unit/mL s ubcutaneous solution RxNorm: 597857 20 Unit(s) SQ QPM 12/29/2014 02/22/2015 In active Phenergan 12.5 mg re ctal suppository RxNorm: 154154 1 Suppository RTL Q6 PRN 12/23/2014 No Stop Date Active nausea Kenalog 40 mg/mL bartolome pension for injection RxNorm: 9076004 Milliliter(s) Inj 12/23/2014 12/23/2014 In active prednisone 20 mg tablet RxNorm: 862159 2 Tablet(s) PO daily 12/13/2014 12/17/2014 Inactive prednisone 20 mg tablet RxNorm: 425583 2 Tablet(s) PO daily 12/13/2014 12/12/2014 Inactive meclizine 25 mg tablet RxNorm: 973776 1 Tablet(s) PO Q6 PRN 12/09/2014 02/24/2015 Inactive hydrocodone 5 mg-ilnh taminophen 325 mg tablet RxNorm: 497704 1 Tablet(s) PO Q8 as needed 12/09/2014 02/16/2015 Inactive Vitamin B-12 1,000 m cg/mL oral drops RxNorm: 4149966 1 Milliliter(s) PO d aily No Start Date Active Alphagan P 0.1 % eye drops RxNorm: 002914 1 Drop(s) OPH BID No Start Date Active aspirin 325 mg table t,delayed release RxNorm: 606733 1 Tablet(s) PO daily No Start Date Active Tricor 145 mg tablet RxNorm: 210168 1 Tablet(s) PO daily No Start Date Active vitamin [id number] B1 oral liquid RxNorm: 1,000 Microgram(s) PO daily No Start Date Active atenolol 50 mg tablet RxNorm: 031362 1 Tablet(s) PO daily No Start Date Active Protonix 40 mg table t,delayed release RxNorm: 479037 1 Tablet(s) PO daily No Start Date 04/04/2016 Inactive glipizide 10 mg tablet RxNorm: 695172 1 Tablet(s) PO BID No Start Date 03/22/2015 Inactive Lantus 100 unit/mL s ubcutaneous solution RxNorm: 774251 15 Unit(s) SQ QPM No Start Date 12/28/2014 Inactive lisinopril 10 mg tablet RxNorm: 955410 1 Tablet(s) PO daily No Start Date 01/05/2016 Inactive Vitamin D2 50,000 un it capsule RxNorm: 866361 1 Capsule(s) PO QW No Start Date 08/01/2015 Inactive Toujeo SoloStar 300 unit/mL (1.5 mL) subcutaneous insulin pen RxNorm: 0408381 30 Unit(s) SQ QHS No Start Date 08/01/2015 Inactive simvastatin 40 mg ta blet RxNorm: 520741 1 Tablet(s) PO daily No Start Date 12/27/2015 Inactive testosterone cypiona te 200 mg/mL intramuscular oil RxNorm: 395634 1 Milliliter(s) IM monthly No Start Date 01/16/2018 Inactive hydrocodone 5 mg-linh taminophen 325 mg tablet RxNorm: 697724 1 Tablet(s) PO Q8 as needed No Start Date 12/08/2014 Inactive metformin 500 mg tablet RxNorm: 311648 1 Tablet(s) PO daily No Start Date 04/24/2015 Inactive omeprazole 20 mg cap jacquelyn,delayed release RxNorm: 607799 1 Capsule(s) PO daily No Start Date 10/05/2015 Inactive Flomax 0.4 mg capsule RxNorm: 588674 1 Capsule(s) PO daily No Start Date 03/23/2015 Inactive Medication Administered Medication Codes Instruc tions Start Date Status testosterone cypionate 200 mg/mL intramuscular oil RxNorm: 7922706 Milliliter 09/23/2018 No longer Active testosterone cypionate 200 mg/mL intramuscular oil RxNorm: 0259705 /2Milliliter 09/02/2018 No longer Active testosterone enanthate 200 mg/mL intramuscular oil RxNorm: 449262 Milliliter 08/21/2018 No longer Active testosterone cypionate 200 mg/mL intramuscular oil RxNorm: 5209314 Milliliter 08/08/2018 No longer Active testosterone cypionate 200 mg/mL intramuscular oil RxNorm: 2698402 /2Milliliter 07/28/2018 No longer Active testosterone cypionate 200 mg/mL intramuscular oil RxNorm: 109957 Milliliter 07/16/2018 No longer Active testosterone cypionate 200 mg/mL intramuscular oil RxNorm: 446839 Milliliter 07/02/2018 No longer Active testosterone cypionate 200 mg/mL intramuscular oil RxNorm: 283174 Milliliter 06/24/2018 No longer Active testosterone cypionate 200 mg/mL intramuscular oil RxNorm: 830114 Milliliter 06/13/2018 No longer Active testosterone cypionate 200 mg/mL intramuscular oil RxNorm: 031654 Milliliter 06/05/2018 No longer Active testosterone cypionate 200 mg/mL intramuscular oil RxNorm: 770625 Milliliter 05/30/2018 No longer Active testosterone cypionate 200 mg/mL intramuscular oil RxNorm: 601429 Milliliter 05/22/2018 No longer Active testosterone cypionate 200 mg/mL intramuscular oil RxNorm: 256649 /2Milliliter 05/12/2018 No longer Active testosterone cypionate 200 mg/mL intramuscular oil RxNorm: 970286 Milliliter 05/02/2018 No longer Active testosterone cypionate 200 mg/mL intramuscular oil RxNorm: 343476 0.5Milliliter 04/24/2018 No longer Active testosterone cypionate 200 mg/mL intramuscular oil RxNorm: 497054 /2Milliliter 04/17/2018 No longer Active ketorolac 60 mg/2 mL intramuscular solution RxNorm: 2451589 Milliliter 03/07/2018 No longer Active Kenalog 40 mg/mL suspension for injection RxNorm: 1506429 1.5Milliliter 01/30/2018 No longer Active testosterone cypionate 200 mg/mL intramuscular oil RxNorm: 451504 Milliliter 01/17/2018 No longer Active Kenalog 40 mg/mL suspension for injection RxNorm: 7149870 Milliliter 04/12/2015 No longer Active Kenalog 40 mg/mL suspension for injection RxNorm: 3597834 Milliliter 12/23/2014 No longer Active Immunizations Vaccine [...] Code Item Item Code Result Date Testosterone Sit658 Testo 669.0 ng/dL 09/08/2018 %Hba1C Vsz635 % HbA1c 73160-1 7.4 % 09/08/2018 %Hba1C Lev338 Gluc Ave 166 mg/dL 09/08/2018 Lipid Ord30 CHOL 114 mg/dL 09/08/2018 Lipid Ord30 HDL 28.0 mg/dl 09/08/2018 Lipid Ord30 TRIG 154 mg/dL 09/08/2018 Lipid Ord30 LDL 55 mg/dL 09/08/2018 Lipid Ord30 C/HDL 4.1 Ratio 09/08/2018 Comp Metabolic Noz275 NA 137 mEq/L 09/08/2018 Comp Metabolic Lzr884 K 4.3 mEq/L 09/08/2018 Comp Metabolic Arg652 CL 100 mEq/L 09/08/2018 Comp Metabolic Lbt475 CO2 27.0 mEq/L 09/08/2018 Comp Metabolic Cds377 AN ION GAP 14 09/08/2018 Comp Metabolic Rsw547 GL UCOSE 85 mg/dL 09/08/2018 Comp Metabolic Mbc264 Cr eat 1.1 mg/dL 09/08/2018 Comp Metabolic Chn029 eG FR 70 ml/min/1.73m2 09/08 Comp Metabolic Gkn522 BUN 11 mg/dL 09/08/2018 Comp Metabolic Lvx195 B/ C Ratio 10.3 Ratio 09/08/2018 Comp Metabolic Udm063 CA LCIUM 9.2 mg/dL 09/08/2018 Comp Metabolic Xsa060 AL K PHOS 65 U/L 09/08/2018 Comp Metabolic Knc473 T(SGOT) 16 U/L 09/08/2018 Comp Metabolic Xfa176 AL T(SGPT) 14 U/L 09/08/2018 Comp Metabolic Xhy561 BI LI T 0.6 mg/dL 09/08/2018 Comp Metabolic Spo112 AL BUMIN 4.0 g/dL 09/08/2018 Comp Metabolic Qdl401 TP RO 6.6 g/dL 09/08/2018 Comp Metabolic Bnp458 GL OB 2.6 g/dL 09/08/2018 Comp Metabolic Iia555 A/ G Ratio 1.6 Ratio 09/08/2018 Comp Metabolic Lps591 Os mo 272 mOsmo 09/08/2018 Vitamin D 25 Oh [id number] VITAMIN D, 25 HYDROXY 37.17 ng/mL 09/08/2018 [...] 33.3 pg 09/08/2018 Cbc With Differential Ord2 [place]% 8.1 % 09/08/2018 Cbc With Differential Ord2 [...] 2.44 K/ul 09/08/2018 Cbc With Differential Ord2 [place] ABS# 0.6 K/ul 09/08/2018 Cbc With Differential Ord2 Eos ABS# 0.3 K/ul 09/08/2018 Cbc With Differential Ord2 Baso ABS# 0.0 K/ul 09/08/2018 Tsh Ord6 TSH (3rd IS) 2.72 uIU/mL 09/08/2018 Comp Metabolic Cpd427 NA 139 mEq/L 04/01/2018 Comp Metabolic Ybo323 K 4.2 mEq/L 04/01/2018 Comp Metabolic Eyc587 CL 102 mEq/L 04/01/2018 Comp Metabolic Qxe172 CO2 29.0 mEq/L 04/01/2018 Comp Metabolic Wrh248 AN ION GAP 12 04/01/2018 Comp Metabolic Avp023 GL UCOSE 87 mg/dL 04/01/2018 Comp Metabolic Vmt740 Cr eat 1.1 mg/dL 04/01/2018 Comp Metabolic Url113 eG FR 70 ml/min/1.73m2 04/01 Comp Metabolic Jtf960 BUN 21 mg/dL 04/01/2018 Comp Metabolic Dvh183 B/ C Ratio 19.4 Ratio 04/01/2018 Comp Metabolic Gqg087 CA LCIUM 9.1 mg/dL 04/01/2018 Comp Metabolic Cyy223 AL K PHOS 60 U/L 04/01/2018 Comp Metabolic Umd052 T(SGOT) 15 U/L 04/01/2018 Comp Metabolic Lyh228 AL T(SGPT) 18 U/L 04/01/2018 Comp Metabolic Ufb457 BI LI T 0.4 mg/dL 04/01/2018 Comp Metabolic Thm476 AL BUMIN 4.0 g/dL 04/01/2018 Comp Metabolic Skc777 TP RO 6.5 g/dL 04/01/2018 Comp Metabolic Wov851 GL OB 2.5 g/dL 04/01/2018 Comp Metabolic End355 A/ G Ratio 1.6 Ratio 04/01/2018 Comp Metabolic Yrv778 Os mo 280 mOsmo 04/01/2018 Lipid Ord30 [...] 101.6 fl 04/01/2018 Cbc With Differential Ord2 [place]% 6.0 % 04/01/2018 Cbc With Differential Ord2 [...] 3.25 K/ul 04/01/2018 Cbc With Differential Ord2 [place] ABS# 0.6 K/ul 04/01/2018 Cbc With Differential Ord2 Eos ABS# 0.4 K/ul 04/01/2018 Cbc With Differential Ord2 Baso ABS# 0.0 K/ul 04/01/2018 %Hba1C Olo798 % HbA1c 99863-6 8.0 % 04/01/2018 %Hba1C Ftv609 Gluc Ave 183 mg/dL 04/01/2018 Testosterone Yhn346 Testo 111.3 ng/dL 04/01/2018 Testosterone Zus746 Testo 135.4 ng/dL 01/14/2018 Cbc With Differential [...] 36.0 pg 01/14/2018 Cbc With Differential Ord2 [place]% 6.8 % 01/14/2018 Cbc With Differential Ord2 [...] 2.71 K/ul 01/14/2018 Cbc With Differential Ord2 [place] ABS# 0.8 K/ul 01/14/2018 Cbc With Differential Ord2 Eos ABS# 0.2 K/ul 01/14/2018 Cbc With Differential Ord2 Baso ABS# 0.0 K/ul 01/14/2018 Comp Metabolic Ppu275 NA 134 mEq/L 11/20/2017 Comp Metabolic Srr309 K 4.4 mEq/L 11/20/2017 Comp Metabolic Vmz888 CL 99 mEq/L 11/20/2017 Comp Metabolic Jxh087 CO2 29.0 mEq/L 11/20/2017 Comp Metabolic Jzu021 AN ION GAP 10 11/20/2017 Comp Metabolic Gya753 GL UCOSE 218 mg/dL 11/20/2017 Comp Metabolic Uqz897 Cr eat 1.0 mg/dL 11/20/2017 Comp Metabolic Lop984 eG FR 78 ml/min/1.73m2 11/20 Comp Metabolic Xyt939 BUN 13 mg/dL 11/20/2017 Comp Metabolic Nfv987 B/ C Ratio 13.3 Ratio 11/20/2017 Comp Metabolic Xdq621 CA LCIUM 9.0 mg/dL 11/20/2017 Comp Metabolic Rjz059 AL K PHOS 71 U/L 11/20/2017 Comp Metabolic Mad934 T(SGOT) 18 U/L 11/20/2017 Comp Metabolic Xgj081 AL T(SGPT) 17 U/L 11/20/2017 Comp Metabolic Arv029 BI LI T 0.4 mg/dL 11/20/2017 Comp Metabolic Apm628 AL BUMIN 4.1 g/dL 11/20/2017 Comp Metabolic Fkp433 TP RO 6.5 g/dL 11/20/2017 Comp Metabolic Djz477 GL OB 2.4 g/dL 11/20/2017 Comp Metabolic Ogw630 A/ G Ratio 1.8 Ratio 11/20/2017 Comp Metabolic Hqu321 Os mo 275 mOsmo 11/20/2017 Cbc With [...] 35.2 pg 11/20/2017 Cbc With Differential Ord2 [place]% 7.2 % 11/20/2017 Cbc With Differential Ord2 [...] 3.34 K/ul 11/20/2017 Cbc With Differential Ord2 [place] ABS# 0.6 K/ul 11/20/2017 Cbc With Differential Ord2 Eos ABS# 0.3 K/ul 11/20/2017 Cbc With Differential Ord2 Baso ABS# 0.0 K/ul 11/20/2017 Vitamin D 25 Oh Kya6206 VITAMIN D, 25 HYDROXY 43.72 ng/mL 11/20/2017 %Hba1C Mfs234 % HbA1c 00396-9 7.4 % 11/20/2017 %Hba1C Opm233 Gluc Ave 166 mg/dL 11/20/2017 %Hba1C Rlr167 % HbA1c 10435-3 7.2 % 08/20/2017 %Hba1C Ida912 Gluc Ave 160 mg/dL 08/20/2017 Lipid Ord30 [...] 34.7 pg 08/20/2017 Cbc With Differential Ord2 [place]% 7.6 % 08/20/2017 Cbc With Differential Ord2 [...] 2.42 K/ul 08/20/2017 Cbc With Differential Ord2 [place] ABS# 0.6 K/ul 08/20/2017 Cbc With Differential Ord2 Eos ABS# 0.3 K/ul 08/20/2017 Cbc With Differential Ord2 Baso ABS# 0.0 K/ul 08/20/2017 Tsh Ord6 hTSH II 2.27 uIU/mL 08/20/2017 Comp Metabolic Qua202 NA 138 mEq/L 08/20/2017 Comp Metabolic Wsk373 K 4.3 mEq/L 08/20/2017 Comp Metabolic Seb459 CL 102 mEq/L 08/20/2017 Comp Metabolic Cnn585 CO2 29.0 mEq/L 08/20/2017 Comp Metabolic Tlb319 AN ION GAP 11 08/20/2017 Comp Metabolic Nxe137 GL UCOSE 89 mg/dL 08/20/2017 Comp Metabolic Xue625 Cr eat 1.0 mg/dL 08/20/2017 Comp Metabolic Bpm524 eG FR 80 ml/min/1.73m2 08/20 Comp Metabolic Dag054 BUN 13 mg/dL 08/20/2017 Comp Metabolic Hyx832 B/ C Ratio 13.5 Ratio 08/20/2017 Comp Metabolic Uhg135 CA LCIUM 9.2 mg/dL 08/20/2017 Comp Metabolic Frv115 AL K PHOS 69 U/L 08/20/2017 Comp Metabolic Iws025 T(SGOT) 18 U/L 08/20/2017 Comp Metabolic Xnv180 AL T(SGPT) 19 U/L 08/20/2017 Comp Metabolic Pdl276 BI LI T 0.6 mg/dL 08/20/2017 Comp Metabolic Awv794 AL BUMIN 4.0 g/dL 08/20/2017 Comp Metabolic Lsz718 TP RO 6.6 g/dL 08/20/2017 Comp Metabolic Cpj633 GL OB 2.6 g/dL 08/20/2017 Comp Metabolic Clu076 A/ G Ratio 1.5 Ratio 08/20/2017 Comp Metabolic Wbs072 Os mo 275 mOsmo 08/20/2017 Vitamin D 25 Oh Alc3305 VITAMIN D, 25 HYDROXY 30.96 ng/mL 08/20/2017 B12 Ffq169 B12 >1500.00 pg/ml 02/22/2017 Cbc With Differential [...] 35.7 pg 02/20/2017 Cbc With Differential Ord2 [place]% 6.3 % 02/20/2017 Cbc With Differential Ord2 [...] 3.19 K/ul 02/20/2017 Cbc With Differential Ord2 [place] ABS# 0.5 K/ul 02/20/2017 Cbc With Differential Ord2 Eos ABS# 0.4 K/ul 02/20/2017 Cbc With Differential Ord2 Baso ABS# 0.0 K/ul 02/20/2017 Comp Metabolic Vba473 NA 138 mEq/L 02/20/2017 Comp Metabolic Pwe213 K 4.5 mEq/L 02/20/2017 Comp Metabolic Iex239 CL 101 mEq/L 02/20/2017 Comp Metabolic Pyi493 CO2 31.0 mEq/L 02/20/2017 Comp Metabolic Mzq838 AN ION GAP 11 02/20/2017 Comp Metabolic Btp493 GL UCOSE 120 mg/dL 02/20/2017 Comp Metabolic Siu378 Cr eat 0.9 mg/dL 02/20/2017 Comp Metabolic Ipk222 eG FR 83 ml/min/1.73m2 02/20 Comp Metabolic Kgi191 BUN 15 mg/dL 02/20/2017 Comp Metabolic Ikj438 B/ C Ratio 16.1 Ratio 02/20/2017 Comp Metabolic Tht445 CA LCIUM 9.1 mg/dL 02/20/2017 Comp Metabolic Wxq627 AL K PHOS 67 U/L 02/20/2017 Comp Metabolic Xsm895 T(SGOT) 15 U/L 02/20/2017 Comp Metabolic Fpb996 AL T(SGPT) 16 U/L 02/20/2017 Comp Metabolic Kql335 BI LI T 0.5 mg/dL 02/20/2017 Comp Metabolic Tfx589 AL BUMIN 4.0 g/dL 02/20/2017 Comp Metabolic Mdh868 TP RO 6.4 g/dL 02/20/2017 Comp Metabolic Sgu310 GL OB 2.4 g/dL 02/20/2017 Comp Metabolic Etv678 A/ G Ratio 1.7 Ratio 02/20/2017 Comp Metabolic Wmo632 Os mo 278 mOsmo 02/20/2017 Tsh Ord6 hTSH II 2.05 uIU/mL 02/20/2017 %Hba1C Pzd146 % HbA1c 31553-4 7.6 % 02/20/2017 %Hba1C Gsm034 Gluc Ave 171 mg/dL 02/20/2017 Vitamin D 25 Oh Oeg0844 VITAMIN D, 25 HYDROXY 44.40 ng/mL 12/21/2016 Comp Metabolic Xyj389 NA 131 mEq/L 12/21/2016 Comp Metabolic Aez086 K 4.2 mEq/L 12/21/2016 Comp Metabolic Cwo519 CL 97 mEq/L 12/21/2016 Comp Metabolic Cxo554 CO2 27.0 mEq/L 12/21/2016 Comp Metabolic Jue125 AN ION GAP 11 12/21/2016 Comp Metabolic Jcp674 GL UCOSE 266 mg/dL 12/21/2016 Comp Metabolic Xvq265 Cr eat 0.9 mg/dL 12/21/2016 Comp Metabolic Mwv495 eG FR 88 ml/min/1.73m2 12/21 Comp Metabolic Zwe597 BUN 12 mg/dL 12/21/2016 Comp Metabolic Pzq249 B/ C Ratio 13.6 Ratio 12/21/2016 Comp Metabolic Gli870 CA LCIUM 8.6 mg/dL 12/21/2016 Comp Metabolic Prr010 AL K PHOS 69 U/L 12/21/2016 Comp Metabolic Mna645 T(SGOT) 15 U/L 12/21/2016 Comp Metabolic Kyt571 AL T(SGPT) 14 U/L 12/21/2016 Comp Metabolic Qmr237 BI LI T 0.3 mg/dL 12/21/2016 Comp Metabolic Bdp405 AL BUMIN 3.7 g/dL 12/21/2016 Comp Metabolic Zok437 TP RO 5.9 g/dL 12/21/2016 Comp Metabolic Azz194 GL OB 2.2 g/dL 12/21/2016 Comp Metabolic Iap964 A/ G Ratio 1.7 Ratio 12/21/2016 Comp Metabolic Jtw753 Os mo 272 mOsmo 12/21/2016 Cbc With [...] 100.9 fl 12/21/2016 Cbc With Differential Ord2 [place]% 6.9 % 12/21/2016 Cbc With Differential Ord2 [...] 2.05 K/ul 12/21/2016 Cbc With Differential Ord2 [place] ABS# 0.4 K/ul 12/21/2016 Cbc With Differential Ord2 Eos ABS# 0.2 K/ul 12/21/2016 Cbc With Differential Ord2 Baso ABS# 0.0 K/ul 12/21/2016 Comp Metabolic Qdl815 NA 138 mEq/L 09/03/2016 Comp Metabolic Rbk421 K 4.5 mEq/L 09/03/2016 Comp Metabolic Tst636 CL 102 mEq/L 09/03/2016 Comp Metabolic Bps270 CO2 30.0 mEq/L 09/03/2016 Comp Metabolic Pfk949 AN ION GAP 11 09/03/2016 Comp Metabolic Qen063 GL UCOSE 113 mg/dL 09/03/2016 Comp Metabolic Pjc670 Cr eat 1.0 mg/dL 09/03/2016 Comp Metabolic Vux913 eG FR 81 ml/min/1.73m2 09/03 Comp Metabolic Zfk446 BUN 10 mg/dL 09/03/2016 Comp Metabolic Riy916 B/ C Ratio 10.5 Ratio 09/03/2016 Comp Metabolic Lcs237 CA LCIUM 9.1 mg/dL 09/03/2016 Comp Metabolic Rjk938 AL K PHOS 71 U/L 09/03/2016 Comp Metabolic Ous760 T(SGOT) 18 U/L 09/03/2016 Comp Metabolic Egt207 AL T(SGPT) 17 U/L 09/03/2016 Comp Metabolic Ngh964 BI LI T 0.6 mg/dL 09/03/2016 Comp Metabolic Stb413 AL BUMIN 4.1 g/dL 09/03/2016 Comp Metabolic Qyl841 TP RO 6.4 g/dL 09/03/2016 Comp Metabolic Yrp606 GL OB 2.3 g/dL 09/03/2016 Comp Metabolic Ofd106 A/ G Ratio 1.8 Ratio 09/03/2016 Comp Metabolic Lmu365 Os mo 276 mOsmo 09/03/2016 Vitamin D 25 Oh Ojs3872 VITAMIN D, 25 HYDROXY 28.23 ng/mL 09/03/2016 [...] 34.4 pg 09/03/2016 Cbc With Differential Ord2 [place]% 8.9 % 09/03/2016 Cbc With Differential Ord2 [...] 3.34 K/ul 09/03/2016 Cbc With Differential Ord2 [place] ABS# 0.7 K/ul 09/03/2016 Cbc With Differential Ord2 Eos ABS# 0.4 K/ul 09/03/2016 Cbc With Differential Ord2 Baso ABS# 0.0 K/ul 09/03/2016 Lipid Ord30 CHOL 120 mg/dL 09/03/2016 Lipid Ord30 HDL 33.0 mg/dl 09/03/2016 Lipid Ord30 TRIG 161 mg/dL 09/03/2016 Lipid Ord30 LDL 55 mg/dL 09/03/2016 Lipid Ord30 C/HDL 3.6 Ratio 09/03/2016 %Hba1C Spa038 % HbA1c 65695-9 7.5 % 09/03/2016 %Hba1C Gsj693 Gluc Ave 169 mg/dL 09/03/2016 Tsh Ord6 hTSH II 1.50 uIU/mL 05/23/2016 %Hba1C Ent433 % HbA1c 22513-1 7.6 % 05/23/2016 %Hba1C Ryd172 Gluc Ave 171 mg/dL 05/23/2016 Comp Metabolic Tbv948 NA 135 mEq/L 05/23/2016 Comp Metabolic Ctu103 K 4.4 mEq/L 05/23/2016 Comp Metabolic Alv502 CL 99 mEq/L 05/23/2016 Comp Metabolic Baw058 CO2 28.0 mEq/L 05/23/2016 Comp Metabolic Qoq402 AN ION GAP 12 05/23/2016 Comp Metabolic Zqd071 GL UCOSE 257 mg/dL 05/23/2016 Comp Metabolic Hwc724 Cr eat 0.8 mg/dL 05/23/2016 Comp Metabolic Alv409 eG FR 95 ml/min/1.73m2 05/23 Comp Metabolic Nfh786 BUN 11 mg/dL 05/23/2016 Comp Metabolic Mty335 B/ C Ratio 13.3 Ratio 05/23/2016 Comp Metabolic Lep551 CA LCIUM 9.0 mg/dL 05/23/2016 Comp Metabolic Wbe412 AL K PHOS 82 U/L 05/23/2016 Comp Metabolic Iwz415 T(SGOT) 21 U/L 05/23/2016 Comp Metabolic Pga484 AL T(SGPT) 20 U/L 05/23/2016 Comp Metabolic Ezg669 BI LI T 0.3 mg/dL 05/23/2016 Comp Metabolic Gqy669 AL BUMIN 4.0 g/dL 05/23/2016 Comp Metabolic Mer721 TP RO 6.4 g/dL 05/23/2016 Comp Metabolic Jjh870 GL OB 2.4 g/dL 05/23/2016 Comp Metabolic Rmx282 A/ G Ratio 1.6 Ratio 05/23/2016 Comp Metabolic Sxk173 Os mo 278 mOsmo 05/23/2016 Cbc With [...] 34.5 pg 05/23/2016 Cbc With Differential Ord2 [place]% 6.1 % 05/23/2016 Cbc With Differential Ord2 [...] 2.38 K/ul 05/23/2016 Cbc With Differential Ord2 [place] ABS# 0.4 K/ul 05/23/2016 Cbc With Differential Ord2 Eos ABS# 0.2 K/ul 05/23/2016 Cbc With Differential Ord2 Baso ABS# 0.0 K/ul 05/23/2016 B12 Dwv678 B12 597.00 pg/ml 05/23/2016 Metabolic Ord15 NA [...] 0.92 uIU/mL 07/29/2015 Vitamin D 25 Oh Hqi8300 VITAMIN D, 25 HYDROXY 26.93 ng/mL 07/29/2015 %Hba1C Cjv848 % HbA1c 61000-3 8.8 % 07/29/2015 %Hba1C Frn763 Gluc Ave 206 mg/dL 07/29/2015 Cbc With [...] Ord2 RDW 14.9 % 07/29/2015 Comp Metabolic Lxl265 NA 138 mEq/L 07/29/2015 Comp Metabolic Mml129 K 4.4 mEq/L 07/29/2015 Comp Metabolic Qtq816 CL 102 mEq/L 07/29/2015 Comp Metabolic Pyj792 CO2 28.0 mEq/L 07/29/2015 Comp Metabolic Gri660 AN ION GAP 12 07/29/2015 Comp Metabolic Qzv838 GL UCOSE 261 mg/dL 07/29/2015 Comp Metabolic Emo624 Cr eat 1.0 mg/dL 07/29/2015 Comp Metabolic Mrg616 eG FR 77 ml/min/1.73m2 07/29 Comp Metabolic Ebg658 BUN 13 mg/dL 07/29/2015 Comp Metabolic Iba008 B/ C Ratio 13.0 Ratio 07/29/2015 Comp Metabolic Jhy429 CA LCIUM 9.1 mg/dL 07/29/2015 Comp Metabolic Sqk665 AL K PHOS 64 U/L 07/29/2015 Comp Metabolic Vkk756 T(SGOT) 20 U/L 07/29/2015 Comp Metabolic Sud527 AL T(SGPT) 22 U/L 07/29/2015 Comp Metabolic Sex251 BI LI T 0.4 mg/dL 07/29/2015 Comp Metabolic Oja770 AL BUMIN 4.0 g/dL 07/29/2015 Comp Metabolic Uns164 TP RO 6.1 g/dL 07/29/2015 Comp Metabolic Vld924 GL OB 2.1 g/dL 07/29/2015 Comp Metabolic Gdo140 A/ G Ratio 1.9 Ratio 07/29/2015 Comp Metabolic Owy426 Os mo 285 mOsmo 07/29/2015 Cbc With [...] Ord2 RDW 13.1 % 05/06/2015 Comp Metabolic Xev264 NA 134 mEq/L 05/06/2015 Comp Metabolic Hny820 K 4.4 mEq/L 05/06/2015 Comp Metabolic Vni548 CL 98 mEq/L 05/06/2015 Comp Metabolic Wll878 CO2 29.0 mEq/L 05/06/2015 Comp Metabolic Dst590 AN ION GAP 11 05/06/2015 Comp Metabolic Cyh408 GL UCOSE 321 mg/dL 05/06/2015 Comp Metabolic Qid048 Cr eat 1.0 mg/dL 05/06/2015 Comp Metabolic Crx695 eG FR 78 ml/min/1.73m2 05/06 Comp Metabolic Mqo891 BUN 20 mg/dL 05/06/2015 Comp Metabolic Vlx090 B/ C Ratio 20.4 Ratio 05/06/2015 Comp Metabolic Aii707 CA LCIUM 9.5 mg/dL 05/06/2015 Comp Metabolic Spz517 AL K PHOS 62 U/L 05/06/2015 Comp Metabolic Nrn275 T(SGOT) 21 U/L 05/06/2015 Comp Metabolic Gqi203 AL T(SGPT) 37 U/L 05/06/2015 Comp Metabolic Ntv276 BI LI T 0.4 mg/dL 05/06/2015 Comp Metabolic Dkd901 AL BUMIN 3.8 g/dL 05/06/2015 Comp Metabolic Ecx049 TP RO 6.1 g/dL 05/06/2015 Comp Metabolic Gdo454 GL OB 2.3 g/dL 05/06/2015 Comp Metabolic Kpw160 A/ G Ratio 1.7 Ratio 05/06/2015 Comp Metabolic Ifl208 Os mo 283 mOsmo 05/06/2015 Tsh Ord6 hTSH II 1.65 uIU/mL 02/18/2015 B12 Guk188 B12 605.00 pg/ml 02/18/2015 %Hba1C Vho360 % HbA1c 10422-5 8.3 % 02/18/2015 %Hba1C Vpr103 Gluc Ave 192 mg/dL 02/18/2015 Cbc With [...] Ord2 RDW 13.9 % 02/17/2015 Comp Metabolic Koq314 NA 137 mEq/L 02/17/2015 Comp Metabolic Bvd382 K 4.4 mEq/L 02/17/2015 Comp Metabolic Qdq458 CL 100 mEq/L 02/17/2015 Comp Metabolic Ida932 CO2 31.0 mEq/L 02/17/2015 Comp Metabolic Qvr651 AN ION GAP 10 02/17/2015 Comp Metabolic Gew255 GL UCOSE 307 mg/dL 02/17/2015 Comp Metabolic Foc342 Cr eat 1.0 mg/dL 02/17/2015 Comp Metabolic Bki099 eG FR 74 ml/min/1.73m2 02/17 Comp Metabolic Bbc629 BUN 22 mg/dL 02/17/2015 Comp Metabolic Fuf090 B/ C Ratio 21.4 Ratio 02/17/2015 Comp Metabolic Vmn216 CA LCIUM 9.5 mg/dL 02/17/2015 Comp Metabolic Rtd198 AL K PHOS 78 U/L 02/17/2015 Comp Metabolic Rgy935 T(SGOT) 18 U/L 02/17/2015 Comp Metabolic Wri853 AL T(SGPT) 32 U/L 02/17/2015 Comp Metabolic Uml454 BI LI T 0.5 mg/dL 02/17/2015 Comp Metabolic Yvd693 AL BUMIN 4.3 g/dL 02/17/2015 Comp Metabolic Zuu289 TP RO 6.7 g/dL 02/17/2015 Comp Metabolic Dyo155 GL OB 2.4 g/dL 02/17/2015 Comp Metabolic Ukr295 A/ G Ratio 1.8 Ratio 02/17/2015 Comp Metabolic Rdb673 Os mo 289 mOsmo 02/17/2015 Review of [...] lips 06/30/2018 None Full Exam - General 1995 Ears/Nose/Throat [...] Procedure Codes Date THER/PROPH/DIAG INJ SC/IM CPT-4: 83671 09/23/2018 THER/PROPH/DIAG INJ SC/IM CPT-4: 83278 09/02/2018 THER/PROPH/DIAG INJ SC/IM CPT-4: 17573 08/21/2018 THER/PROPH/DIAG INJ SC/IM CPT-4: 18494 08/08/2018 THER/PROPH/DIAG INJ SC/IM CPT-4: 13433 07/28/2018 THER/PROPH/DIAG INJ SC/IM CPT-4: 20211 07/16/2018 THER/PROPH/DIAG INJ SC/IM CPT-4: 24882 07/02/2018 PPPS, SUBSEQ VISIT CPT- 4: G0439 06/30/2018 THER/PROPH/DIAG INJ SC/IM CPT-4: 16927 06/24/2018 THER/PROPH/DIAG INJ SC/IM CPT-4: 70903 06/13/2018 ADMIN INFLUENZA VIRU S VAC CPT-4: G0008 06/06/2018 FLU VACC PRSV FREE I NC ANTIG CPT-4: 90994 06/06/2018 THER/PROPH/DIAG INJ SC/IM CPT-4: 34670 06/05/2018 THER/PROPH/DIAG INJ SC/IM CPT-4: 01305 05/30/2018 THER/PROPH/DIAG INJ SC/IM CPT-4: 67747 05/22/2018 THER/PROPH/DIAG INJ SC/IM CPT-4: 83267 05/12/2018 THER/PROPH/DIAG INJ SC/IM CPT-4: 42615 05/02/2018 THER/PROPH/DIAG INJ SC/IM CPT-4: 27527 04/24/2018 THER/PROPH/DIAG INJ SC/IM CPT-4: 01732 04/17/2018 KETOROLAC TROMETHAMI NE INJ CPT-4: J1885 03/07/2018 URINALYSIS NONAUTO W /O SCOPE CPT-4: 86222 03/07/2018 THER/PROPH/DIAG INJ SC/IM CPT-4: 70942 02/20/2018 TRIAMCINOLONE ACET I [place] NOS CPT-4: J3301 01/30/2018 THER/PROPH/DIAG INJ SC/IM CPT-4: 65485 01/17/2018 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-[address]: 313692682 CPT-4: G0436 04/25/2017 ADMIN INFLUENZA VIRU S VAC CPT-4: G0008 04/25/2017 ADMIN PNEUMOCOCCAL V ACCINE SNOMED CT: 55442729 CPT-4: G0009 04/25/2017 PNEUMOCOCCAL VACC [address]: 52452163 CPT-4: 74301 04/25/2017 FLU VACC PRSV FREE I NC ANTIG CPT-4: 41346 04/25/2017 ADMIN INFLUENZA VIRU S VAC CPT-4: G0008 05/22/2016 FLU VACC 4 TELLY 3 YRS PLUS IM Formatting Model/CDA Sections, Assigned to/Angela Clemons SNOMED CT: 50991790 CPT-4: 09262Gwnxfoa 05/22/2016 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-[address]: 579875087 CPT-4: G0436 11/25/2015 URINALYSIS NONAUTO W /O SCOPE CPT-4: 83869 05/09/2015 TRIAMCINOLONE ACET I [place] NOS CPT-4: J3301 04/12/2015 DESTRUCT PREMALG LESION CPT-4: 22368 03/07/2015 DESTRUCT PREMALG LES 2-14 CPT-4: 21168 03/07/2015 REMOVE IMPACTED EAR WAX UNI CPT-4: 76542 12/31/2014 THER/PROPH/DIAG INJ SC/IM CPT-4: 39318 12/23/2014 TRIAMCINOLONE ACET I [place] NOS CPT-4: J3301 12/23/2014 Vital Signs Date Vital 09/02/2018 Blood Pressure 1: 140/80 Code: 8480-6 BMI: 21.2 Code: 72301-1 Heart Rate 1: 68 bpm Height: 5'11" SpO2: 97% Weight: 152 lbs 06/30/2018 BMI: 21.8 Code: 16939-1 Height: 5'11" Weight: 156 lbs 06/06/2018 Blood Pressure 1: 128/76 Code: 8480-6 BMI: 22.0 Code: 49540-1 Heart Rate 1: 81 bpm Height: 5'11" SpO2: 92% Weight: 158 lbs 04/04/2018 Blood Pressure 1: 124/70 Code: 8480-6 BMI: 20.8 Code: 96918-0 Heart Rate 1: 65 bpm Height: 5'11" SpO2: 95% Weight: 149 lbs 03/07/2018 Blood Pressure 1: 148/70 Code: 8480-6 BMI: 21.2 Code: 85054-0 Heart Rate 1: 66 bpm Height: 5'11" SpO2: 94% Weight: 152 lbs 02/20/2018 Blood Pressure 1: 134/58 Code: 8480-6 BMI: 20.5 Code: 35574-0 Heart Rate 1: 61 bpm Height: 5'11" SpO2: 92% Weight: 147 lbs 01/30/2018 Blood Pressure 1: 158/68 Code: 8480-6 BMI: 21.5 Code: 16576-7 Heart Rate 1: 71 bpm Height: 5'11" SpO2: 92% Weight: 154 lbs 01/14/2018 Blood Pressure 1: 156/70 Code: 8480-6 Height: Weight: 01/13/2018 Blood Pressure 1: 148/62 Code: 8480-6 BMI: 20.9 Code: 19666-7 Heart Rate 1: 54 bpm Height: 5'11" SpO2: 97% Weight: 150 lbs 11/19/2017 Blood Pressure 1: 150/60 Code: 8480-6 BMI: 21.8 Code: 09995-0 Heart Rate 1: 63 bpm Height: 5'11" SpO2: 98% Weight: 156 lbs 10/02/2017 Blood Pressure 1: 168/60 Code: 8480-6 BMI: 21.9 Code: 76165-1 Heart Rate 1: 52 bpm Height: 5'11" SpO2: 97% Weight: 157 lbs 07/23/2017 Blood Pressure 1: 170/70 Code: 8480-6 BMI: 21.8 Code: 88768-4 Heart Rate 1: 65 bpm Height: 5'11" SpO2: 98% Weight: 156 lbs 04/25/2017 Blood Pressure 1: 138/60 Code: 8480-6 BMI: 21.6 Code: 67648-7 Heart Rate 1: 55 bpm Height: 5'11" SpO2: 93% Weight: 155 lbs 02/19/2017 Blood Pressure 1: 138/64 Code: 8480-6 BMI: 21.3 Code: 37074-7 Heart Rate 1: 52 bpm Height: 5'11" SpO2: 96% Weight: 152 lbs 8 oz 01/21/2017 Blood Pressure 1: 160/68 Code: 8480-6 BMI: 21.3 Code: 35913-5 Heart Rate 1: 62 bpm Height: 5'11" SpO2: 96% Weight: 153 lbs 12/20/2016 Blood Pressure 1: 124/66 Code: 8480-6 BMI: 21.5 Code: 28227-8 Height: 5'11" Weight: 154 lbs 08/23/2016 Blood Pressure 1: 142/52 Code: 8480-6 BMI: 21.2 Code: 77659-8 Heart Rate 1: 54 bpm Height: 5'11" SpO2: 96% Weight: 152 lbs 05/22/2016 Blood Pressure 1: 130/76 Code: 8480-6 BMI: 21.5 Code: 95857-1 Heart Rate 1: 78 bpm Height: 5'11" SpO2: 92% Weight: 154 lbs 02/24/2016 Blood Pressure 1: 128/80 Code: 8480-6 BMI: 21.2 Code: 94262-4 Heart Rate 1: 74 bpm Height: 5'11" SpO2: 96% Weight: 152 lbs 01/27/2016 Blood Pressure 1: 144/60 Code: 8480-6 BMI: 21.2 Code: 69956-7 Heart Rate 1: 74 bpm Height: 5'11" SpO2: 97% Weight: 152 lbs 11/25/2015 Blood Pressure 1: 110/52 Code: 8480-6 BMI: 21.9 Code: 08373-5 Heart Rate 1: 65 bpm Height: 5'11" SpO2: 92% Weight: 157 lbs 07/28/2015 Blood Pressure 1: 138/62 Code: 8480-6 BMI: 21.8 Code: 47447-3 Heart Rate 1: 63 bpm Height: 5'11" SpO2: 91% Weight: 156 lbs 05/26/2015 Blood Pressure 1: 120/58 Code: 8480-6 BMI: 21.5 Code: 80425-9 Heart Rate 1: 99 bpm Height: 5'11" SpO2: 96% Weight: 154 lbs 05/06/2015 Blood Pressure 1: 120/58 Code: 8480-6 BMI: 21.2 Code: 67330-0 Heart Rate 1: 66 bpm Height: 5'11" SpO2: 96% Weight: 152 lbs 04/25/2015 Blood Pressure 1: 136/62 Code: 8480-6 BMI: 21.2 Code: 50758-6 Heart Rate 1: 63 bpm Height: 5'11" SpO2: 97% Weight: 152 lbs 04/12/2015 Blood Pressure 1: 160/58 Code: 8480-6 BMI: 21.6 Code: 60249-1 Heart Rate 1: 62 bpm Height: 5'11" Weight: 155 lbs 03/24/2015 Blood Pressure 1: 138/68 Code: 8480-6 BMI: 22.0 Code: 88524-6 Heart Rate 1: 65 bpm Height: 5'11" SpO2: 96% Weight: 158 lbs 03/07/2015 Blood Pressure 1: 116/52 Code: 8480-6 BMI: 22.2 Code: 24893-6 Heart Rate 1: 64 bpm Height: 5'11" SpO2: 97% Weight: 159 lbs 02/17/2015 Blood Pressure 1: 148/58 Code: 8480-6 BMI: 21.3 Code: 96468-9 Heart Rate 1: 63 bpm Height: 5'11" SpO2: 97% Weight: 153 lbs 12/31/2014 Blood Pressure 1: 100/60 Code: 8480-6 BMI: 21.8 Code: 12593-2 Heart Rate 1: 68 bpm Height: 5'11" Weight: 156 lbs 12/23/2014 Blood Pressure 1: 148/64 Code: 8480-6 BMI: 21.9 Code: 28897-8 Heart Rate 1: 64 bpm Height: 5'11" [...] Encounters Encounter Performer Loca tion Codes Date ([id number]) [id number] EST. P ATIENT, LEVEL IV Diagnosis: Essential (primary) hypertension[ICD10: I10] Diagnosis: Chronic obstructive pulmonary disease, unspecified[ICD10: J44.9] Diagnosis: Type 2 diabetes mellitus with hyperglycemia[ICD10: E11.65] Diagnosis: Vitamin D deficiency, unspecified[ICD10: E55.9] Diagnosis: Mixed hyperlipidemia[ICD10: E78.2] Diagnosis: Testicular dysfunction, unspecified[ICD10: E29.9] Karmen Ash MD, [facility] CPT-4: 89833 09/02/2018 ([id number]) 79589 EST. P ATIENT, LEVEL IV Diagnosis: Cellulitis of face[ICD10: L03.211] Diagnosis: Type 2 diabetes mellitus without complications[ICD10: E11.9] Diagnosis: Essential (primary) hypertension[ICD10: I10] Diagnosis: Encounter for immunization[ICD10: Z23] Karmen Ash MD, [facility] CPT-4: 70055 06/06/2018 ([id number]) [id number] EST. P ATIENT, LEVEL IV Diagnosis: Essential (primary) hypertension[ICD10: I10] Diagnosis: Chronic obstructive pulmonary disease, unspecified[ICD10: J44.9] Diagnosis: Testicular dysfunction, unspecified[ICD10: E29.9] Diagnosis: Type 2 diabetes mellitus with hyperglycemia[ICD10: E11.65] Karmen Ash MD, [facility] CPT-4: 43480 04/04/2018 ([id number]) 03938 EST. P ATIENT, LEVEL III Diagnosis: Low back pain[ICD10: M54.5] Diagnosis: Dysuria[ICD10: R30.0] Karmen Ash MD, [facility] CPT-4: 58254 03/07/2018 ([id number]) 51460 EST. P ATIENT, LEVEL IV Diagnosis: Essential (primary) hypertension[ICD10: I10] Diagnosis: Chronic obstructive pulmonary disease, unspecified[ICD10: J44.9] Diagnosis: Abnormal weight loss[ICD10: R63.4] Diagnosis: Low back pain[ICD10: M54.5] Diagnosis: Testicular dysfunction, unspecified[ICD10: E29.9] Diagnosis: Type 2 diabetes mellitus with hyperglycemia[ICD10: E11.65] Karmen Ash MD, [facility] CPT-4: 37560 02/20/2018 ([id number]) 07943 EST. P ATIENT, LEVEL III Diagnosis: Chronic obstructive pulmonary disease with (acute) exacerbation[ICD10: J44.1] Karmen Ash MD, [facility] CPT-4: 38090 01/30/2018 [id number] EST. PATIENT, LEVEL II Diagnosis: Insect bite (nonvenomous), left lower leg, initial encounter[ICD10: S80.862A] Karmen Ash MD, [facility] CPT-4: 07869 01/14/2018 ([id number]) 48524 EST. P ATIENT, LEVEL IV Diagnosis: Type 2 diabetes mellitus with hyperglycemia[ICD10: E11.65] Diagnosis: Chronic obstructive pulmonary disease, unspecified[ICD10: J44.9] Diagnosis: Other fatigue[ICD10: R53.83] Karmen Ash MD, [facility] CPT- 4: 08851 01/13/2018 ([id number]) 91487 EST. P ATIENT, LEVEL IV Diagnosis: Type 2 diabetes mellitus with hyperglycemia[ICD10: E11.65] Diagnosis: Vitamin D deficiency, unspecified[ICD10: E55.9] Diagnosis: Essential (primary) hypertension[ICD10: I10] Diagnosis: Abdominal distension (gaseous)[ICD10: R14.0] Diagnosis: Drug induced constipation[ICD10: K59.03] Karmen Ash MD, [facility] CPT-4: 09969 11/19/2017 07082 EST. PATIENT, LEVEL IV Diagnosis: Low back pain[ICD10: M54.5] Diagnosis: Chronic obstructive pulmonary disease, unspecified[ICD10: J44.9] Brunilda Ash MD, [facility] CPT-4: 91372 10/02/2017 ([id number]) [id number] EST. P ATIENT, LEVEL IV Diagnosis: Essential (primary) hypertension[ICD10: I10] Diagnosis: Type 2 diabetes mellitus with hyperglycemia[ICD10: E11.65] Diagnosis: Vitamin D deficiency, unspecified[ICD10: E55.9] Diagnosis: Mixed hyperlipidemia[ICD10: E78.2] Karmen Ash MD, [facility] CPT-4: 62970 07/23/2017 ([id number]) 41714 EST. P ATIENT, LEVEL IV Diagnosis: Essential (primary) hypertension[ICD10: I10] Diagnosis: Type 2 diabetes mellitus with hyperglycemia[ICD10: E11.65] Diagnosis: Chronic obstructive pulmonary disease, unspecified[ICD10: J44.9] Diagnosis: Nicotine dependence, unspecified, uncomplicated[ICD10: F17.200] Diagnosis: Encounter for immunization[ICD10: Z23] Karmen Ash MD, [facility] CPT-4: 59846 04/25/2017 ([id number]) 44308 EST. P ATIENT, LEVEL IV Diagnosis: Type 2 diabetes mellitus with hyperglycemia[ICD10: E11.65] Diagnosis: Essential (primary) hypertension[ICD10: I10] Diagnosis: Anemia, unspecified[ICD10: D64.9] Karmen Ash MD, [facility] CPT- 4: 29022 02/19/2017 ([id number]) 99275 EST. P ATIENT, LEVEL IV Diagnosis: Slow transit constipation[ICD10: K59.01] Diagnosis: Gastro-esophageal reflux disease without esophagitis[ICD10: K21.9] Diagnosis: Essential (primary) hypertension[ICD10: I10] Karmen Ash MD, [facility] CPT-4: 95640 01/21/2017 ([id number]) 45616 EST. P ATIENT, LEVEL IV Diagnosis: Type 2 diabetes mellitus with hyperglycemia[ICD10: E11.65] Diagnosis: Vitamin D deficiency, unspecified[ICD10: E55.9] Diagnosis: Essential (primary) hypertension[ICD10: I10] Diagnosis: Chronic obstructive pulmonary disease, unspecified[ICD10: J44.9] Karmen Ash MD, [facility] CPT-4: 41764 12/20/2016 ([id number]) 46992 EST. P ATIENT, LEVEL IV Diagnosis: Type 2 diabetes mellitus with hyperglycemia[ICD10: E11.65] Diagnosis: Essential (primary) hypertension[ICD10: I10] Diagnosis: Mixed hyperlipidemia[ICD10: E78.2] Diagnosis: Vitamin D deficiency, unspecified[ICD10: E55.9] Karmen Ash MD, [facility] CPT-4: 11812 08/23/2016 ([id number]) 67835 EST. P ATIENT, LEVEL IV Diagnosis: Type 2 diabetes mellitus with hyperglycemia[ICD10: E11.65] Diagnosis: Essential (primary) hypertension[ICD10: I10] Diagnosis: Chronic obstructive pulmonary disease, unspecified[ICD10: J44.9] Karmen Ash MD, [facility] CPT-4: 65955 05/22/2016 ([id number]) 09045 EST. P ATIENT, LEVEL III Diagnosis: Dysuria[ICD10: R30.0] Diagnosis: Essential (primary) hypertension[ICD10: I10] Karmen Ash MD, [facility] CPT-4: 65014 02/24/2016 ([id number]) 23624 EST. P ATIENT, LEVEL IV Diagnosis: Gastro-esophageal reflux disease without esophagitis[ICD10: K21.9] Diagnosis: Slow transit constipation[ICD10: K59.01] Diagnosis: Type 2 diabetes mellitus with hyperglycemia[ICD10: E11.65] Karmen Ash MD, [facility] CPT-4: 93485 01/27/2016 ([id number]) 56303 EST. P ATIENT, LEVEL IV Diagnosis: Essential (primary) hypertension[ICD10: I10] Diagnosis: Type 2 diabetes mellitus with hyperglycemia[ICD10: E11.65] Diagnosis: Vitamin D deficiency, unspecified[ICD10: E55.9] Diagnosis: Chronic obstructive pulmonary disease, unspecified[ICD10: J44.9] Diagnosis: Mixed hyperlipidemia[ICD10: E78.2] Diagnosis: Tobacco use[ICD10: Z72.0] Karmen Ash MD, [facility] CPT- 4: 87439 11/25/2015 ([id number]) 21696 EST. P ATIENT, LEVEL IV Diagnosis: Type 2 diabetes mellitus with hyperglycemia[ICD10: E11.65] Diagnosis: Essential (primary) hypertension[ICD10: I10] Diagnosis: Vitamin D deficiency, unspecified[ICD10: E55.9] Karmen Ash MD, [facility] CPT-4: 62392 07/28/2015 ([id number]) 11195 EST. P ATIENT, LEVEL III Diagnosis: Type 2 diabetes mellitus with hyperglycemia[ICD10: E11.65] Diagnosis: Essential (primary) hypertension[ICD10: I10] Violeta Ash MD, [facility] CPT-4: 99168 05/26/2015 ([id number]) 68172 EST. P ATIENT, LEVEL III Diagnosis: DIABETES TYPE II[ICD9: 250.00] Diagnosis: COPD (chronic obstructive pulmonary disease)[ICD9: 496] Diagnosis: ESSENTIAL HYPERTENSION[ICD9: 401.9] Diagnosis: Cough[ICD9: 786.2] Violeta Ash MD, [facility] CPT-4: 07391 05/06/2015 ([id number]) 09948 EST. P ATIENT, LEVEL III Diagnosis: COPD (chronic obstructive pulmonary disease)[ICD9: 496] Diagnosis: DIABETES TYPE II[ICD9: 250.00] Diagnosis: Muscle ache[ICD9: 729.1] Karmen Ash MD, [facility] CPT- 4: 20194 04/25/2015 ([id number]) 71696 EST. P ATIENT, LEVEL III Diagnosis: ACTINIC KERATOSIS[ICD9: 702.0] Diagnosis: COPD (chronic obstructive pulmonary disease)[ICD9: 496] Diagnosis: DIABETES TYPE II[ICD9: 250.00] Diagnosis: ACUTE URI[ICD9: 465.9] Violeta Ash MD, [facility] CPT-4: 91683 04/12/2015 ([id number]) 74884 EST. P ATIENT, LEVEL III Diagnosis: DIABETES TYPE II[ICD9: 250.00] Violeta Ash MD, [facility] CPT-4: 17692 03/24/2015 ([id number]) 49139 EST. P ATIENT, LEVEL IV Diagnosis: DIABETES TYPE II[ICD9: 250.00] Diagnosis: Hypoglycemia[ICD9: 251.2] Diagnosis: Skin texture changes[ICD9: 782.8] Violeta Ash MD, [facility] CPT-4: 64325 03/07/2015 ([id number]) 09963 EST. P ATIENT, LEVEL IV Diagnosis: COPD (chronic obstructive pulmonary disease)[ICD9: 496] Diagnosis: Fatigue[ICD9: 780.79] Diagnosis: Insulin dependent diabetes mellitus[ICD9: 250.00] Diagnosis: Unsteady gait[ICD9: 781.2] Maame Ash MD, [facility] CPT-4: 17010 02/17/2015 ([id number]) 55375 EST. P ATIENT, LEVEL IV Diagnosis: BPPV (benign paroxysmal positional vertigo)[ICD9: 386.11] Diagnosis: Impacted cerumen[ICD9: 380.4] Diagnosis: ESSENTIAL HYPERTENSION[ICD9: 401.9] Diagnosis: Insulin dependent diabetes mellitus[ICD9: 250.00] [facility] CPT-4: 29075 12/23/2014 ([id number]) OFFICE [facility] 4 Diagnosis: Insulin dependent diabetes mellitus[ICD9: 250.00] Diagnosis: BPPV (benign paroxysmal positional vertigo)[ICD9: 386.11] Diagnosis: COPD (chronic obstructive pulmonary disease)[ICD9: 496] Diagnosis: Tobacco abuse[ICD9: 305.1] Diagnosis: Osteoarthritis[ICD9: 715.90] [facility] CPT- 4: 80535 12/09/2014 Plan of Care Planned Activity Notes [...] to medications. 09/02/2018 Appointment: Karmen Espinal WPtel: [address] [place], [place] [phone] (15 min) Moderate 09/02/2018 Patient Education: Patient [...] [facility] [phone] [facility] - Annual Wellness Visit 06/30/2018 [...] 2 months 04/04/2018 Appointment: Karmen Espinal WPtel: [phone] [facility] (15 min) Moderate 04/04/2018 Patient Education: Patient Medication Summary Completed 04/04/2018 Care Plan: Cbc With Differential Pending 04/04/2018 Care Plan: Testosterone repeat in 2 months Pending 04/04/2018 Appointment: Karmen Espinal WPtel: [phone] [phone] [place] (15 min) Moderate 03/25/2018 Visit Plan: Low back pain -history of kidney stone-UA negative today -increase fluids and call if pain does not resolve or if any worse. 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 01/30/2018 Appointment: Karmen Espinal WPtel: [phone] (15 min) Moderate 01/30/2018 Patient Education: Patient Medication Summary Completed 01/30/2018 Appointment: Karmen Espinal WPtel: [phone] (15 min) Moderate 01/28/2018 Appointment: Injection 01/17/2018 Patient Education: Patient Medication Summary Completed 01/17/2018 Visit Plan: Cellulitis - start oral antibiotics as directed, return to clinic as previously directed, call for acute change in symptoms, worsening redness, warmth, discharge. 01/14/2018 Appointment: Karmen Espinal WPtel: [facility] [place] [phone] (10 min) Simple 01/14/2018 Patient Education: Patient [...] controlled. 01/13/2018 Appointment: Karmen Espinal WPtel: [facility] [place] [phone] (15 min) Moderate 01/13/2018 Patient Education: Patient Medication Summary Completed 01/13/2018 Referral: Hugo Villatoro HPtel:[phone] [place] [address] Patient's informed. Referral info ned monroy. Completed [...] change in blood pressure readings at home. Gvfjhebo-xbnaoa-jlblc to see Dr Villatoro Constipation-start linzess daily 11/19/2017 Appointment: Karmen Espinal WPtel: [phone] [facility] [phone] [place] (30 min) Complex 11/19/2017 Patient Education: Patient Medication Summary Completed 11/19/2017 Care Plan: Referral Order bloating, nausea SNOMED-CT : [id number] Pending 11/19/2017 Visit Plan: Low back pain- [...] [facility] [place] [place] (15 min) Moderate 10/02/2017 Patient Education: [...] controlled. 07/23/2017 Appointment: Karmen Espinal WPtel: [phone] [phone] (30 min) [facility] 07/23/2017 Patient Education: Patient Medication Summary [...] readings are starting to become less controlled. Ozdfuy-kxfeoog-duvmv labs 02/19/2017 Appointment: Karmen Espinal WPtel: [phone] [...] 01/21/2017 Care Plan: Referral Order SNOMED-CT : 468163976 Pending 01/21/2017 Visit Plan: Diabetes Mellitus - [...] changes. 12/20/2016 Appointment: Karmen Espinal WPtel: [phone] (30 min) Complex 12/20/2016 Patient Education: Patient Medication Summary Completed 12/20/2016 Patient Education: Smoking and Tobacco Addiction Completed 12/20/2016 Patient Education: Hypertension Completed 12/20/2016 Appointment: Karmen Espinal WPtel: [facility]5 [phone] (30 [...] level 08/23/2016 Appointment: Karmen Espinal WPtel: [phone] [phone] (30 min) Complex 08/23/2016 Patient Education: Patient Medication Summary Completed 08/23/2016 Patient Education: Smoking and Tobacco Addiction Completed 08/23/2016 Patient Education: Patient Medication Summary Completed 05/23/2016 Visit Plan: Diabetes Mellitus - izzy traore [...] changes. 05/22/2016 Appointment: Karmen Espinal WPtel: [phone] [phone] (30 min) Complex 05/22/2016 Patient Education: Patient Medication Summary Completed 05/22/2016 Patient Education: Smoking and Tobacco Addiction Completed 05/22/2016 Care Plan: Cbc With Differential Ordered 05/22/2016 Care Plan: %Hba1C LOIN C : 49084-3 Ordered 05/22/2016 Care Plan: Tsh Ordered 05/22/2016 [...] update 02/24/2016 Appointment: Karmen Espinal WPtel: [phone] [phone] (30 min) Complex 02/24/2016 Patient [...] regimen. 01/27/2016 Appointment: Karmen Espinal WPtel: [phone] [facility] [phone] (30 min) Complex 01/27/2016 Patient Education: Patient [...] COPD-sample of 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 Vcaxhshd-efajtsey-KTQH SIMVASTATIN X 2 WEEKS AND CALL WITH [...] Care Plan: COMPLETE CBC AUTOMATED LOINC : 80383-4 Ordered 03/24/2015 Visit Plan: Diabetes Mellitus - [...] for removal. 03/07/2015 Appointment: Violeta Ash WPtel: [address] [place], [place] [id number] (15 min) Moderate 03/07/2015 Patient Education: Patient [...] Care Plan: COMPLETE CBC AUTOMATED LOINC : 44316-7 Ordered 12/23/2014 Visit Plan: BPPV - Benign [...] appt 12/09/2014 Appointment: Karmen Espinal WPtel: [phone] [facility] [phone] [place] (S) New Patient 12/09/2014 Patient Education: Patient Medication Summary Completed 12/09/2014 Patient Education: .Amazing charts Parox ysmal positional vertigo Completed 12/09/2014 Patient Education: Smoking and Tobacco Addiction Completed 12/09/2014 Referral: Hugo Villatoro HPtel:[phone] [facility] [place] Referral Appointment Requested Referral: [...] readings are starting to become less controlled. Nnhblu-tqvonev-ctsbm labs . COPD -recent pneum onia-symptoms have [...] monthly -repeat labs in 2 months . Esophageal Reflux - the patient has [...] change in blood pressure readings at home. Utrzngcj-xvrshh-cwwbr to see Dr Villatoro Constipation-start linzess daily [...] of if symptoms worsen-call saturday with update Miralax 1 packet laron ry other day. [...] symptoms not improved on this regimen. . Diabetes Mellitus - I have recommended [...] POTENTIAL SIDE EFFECTS AND WORSENING OF SYMPTOMS. Lcktnknw-pmsczttd-IBBR SIMVASTATIN X 2 WEEKS AND CALL WITH [...] low dose CT chest-60 pack/year history . Fatigue, Unsteady Gait, Dizziness- Check labs [...]
--- OUTSIDE RECORDS SUMMARY | 2020-03-29 09:14 | XMS REPORT | CCD ---
Author Author Dick Espinal Organization Violeta Ash MD, [facility] Address [address] [place] [address] Phone Care Team Providers Care Grouter Helper Name Role Phone PP Unavailable CCM Unavailable Summary Purpose Interface Exchange Insurance Providers Payer name Policy type / Coverage type Covered constitution party ID Effective Begin Date Effective End Date WPS Medicare Part B Medicare Part B [id number] Unknown Unknown [employer] Medicar e Part B [id number] Unknown Unkn own Family history Father Diagnosis Age At Onset Cancer Unknown Mother Diagnosis Age At Onset Cancer Unknown Social History Social History Element Codes Description Effective Dates Marital status Unknown M arried 12/09/2014 Employment Unknown Retir ed 12/09/[address]: 39532527 Currently smokes tobacco 12/09/2014 Number of years using tobacco Unknown > 50 12/09/2014 Number of cigarettes/day Unknown 30 (Pack and a half) 12/09/[address]: 238425566 Never drinks alcohol 12/09/2014 Allergies, Adverse Reactions, [...] 5 mg-linh taminophen 325 mg tablet RxNorm: 913615 1 Tablet(s) PO Q6-8H as needed 09/22/2018 10/16/2018 Active testosterone cypiona te 200 mg/mL intramuscular oil RxNorm: 3113949 1/2 Milliliter(s) IM 09/02/2018 09/02/2018 Inactive testosterone enantha te 200 mg/mL intramuscular oil RxNorm: 655494 Milliliter(s) IM 08/21/2018 08/21/2018 In active hydrocodone 5 mg-linh taminophen 325 mg tablet RxNorm: 126453 1 Tablet(s) PO Q6-8H as needed 08/21/2018 09/14/2018 Inactive testosterone cypiona te 200 mg/mL intramuscular oil RxNorm: 7095581 Milliliter(s) IM 08/08/2018 08/08/2018 In active testosterone cypiona te 200 mg/mL intramuscular oil RxNorm: 5916560 1/2 Milliliter(s) IM 07/28/2018 07/28/2018 Inactive hydrocodone 5 mg-linh taminophen 325 mg tablet RxNorm: 397758 1 Tablet(s) PO Q6-8H as needed 07/21/2018 08/14/2018 Inactive testosterone cypiona te 200 mg/mL intramuscular oil RxNorm: 864011 Milliliter(s) IM 07/16/2018 07/16/2018 In active testosterone cypiona te 200 mg/mL intramuscular oil RxNorm: 778808 Milliliter(s) IM 07/02/2018 07/02/2018 In active Xanax 0.5 mg tablet RxNorm: 643583 1 Tablet(s) PO TID 06/27/2018 08/25/2018 Inactive testosterone cypiona te 200 mg/mL intramuscular oil RxNorm: 608494 Milliliter(s) IM 06/24/2018 06/24/2018 In active hydrocodone 5 mg-linh taminophen 325 mg tablet RxNorm: 923317 1 Tablet(s) PO Q6-8H as needed 06/23/2018 07/17/2018 Inactive testosterone cypiona te 200 mg/mL intramuscular oil RxNorm: 417160 Milliliter(s) IM 06/13/2018 06/13/2018 In active testosterone cypiona te 200 mg/mL intramuscular oil RxNorm: 464646 Milliliter(s) IM 06/05/2018 06/05/2018 In active testosterone cypiona te 200 mg/mL intramuscular oil RxNorm: 884240 1/2 Milliliter(s) IM weekly 05/30/2018 09/26/2018 Active testosterone cypiona te 200 mg/mL intramuscular oil RxNorm: 433953 Milliliter(s) IM 05/30/2018 05/30/2018 In active testosterone cypiona te 200 mg/mL intramuscular oil RxNorm: 265710 Milliliter(s) IM 05/22/2018 05/22/2018 In active hydrocodone 5 mg-linh taminophen 325 mg tablet RxNorm: 506873 1 Tablet(s) PO Q6-8H as needed 05/20/2018 06/13/2018 Inactive testosterone cypiona te 200 mg/mL intramuscular oil RxNorm: 796766 1/2 Milliliter(s) IM 05/12/2018 05/12/2018 Inactive testosterone cypiona te 200 mg/mL intramuscular oil RxNorm: 155438 Milliliter(s) IM 05/02/2018 05/02/2018 In active testosterone cypiona te 200 mg/mL intramuscular oil RxNorm: 074707 1/2 Milliliter(s) IM weekly 04/24/2018 05/29/2018 Inactive testosterone cypiona te 200 mg/mL intramuscular oil RxNorm: 021734 0.5 Milliliter(s) IM 04/24/2018 04/24/2018 Inactive hydrocodone 5 mg-linh taminophen 325 mg tablet RxNorm: 704885 1 Tablet(s) PO Q6-8H as needed 04/22/2018 05/16/2018 Inactive testosterone cypiona te 200 mg/mL intramuscular oil RxNorm: 975261 1/2 Milliliter(s) IM 04/17/2018 04/17/2018 Inactive testosterone cypiona te 200 mg/mL intramuscular oil RxNorm: 599455 1/2 Milliliter(s) IM weekly 04/16/2018 04/23/2018 Inactive Jardiance 10 mg tablet RxNorm: 7989953 1 Tablet(s) PO daily 04/04/2018 12/29/2018 Active Protonix 40 mg table t,delayed release RxNorm: 503214 1 Tablet(s) PO daily TAKE 1 TABLET BY MOUTH DAILY 04/04/2018 03/29/2019 Active - Ref: [id number] testosterone cypiona te 200 mg/mL intramuscular oil RxNorm: 096261 1 Milliliter(s) IM monthly 04/04/2018 04/15/2018 Inactive hydrocodone 5 mg-linh taminophen 325 mg tablet RxNorm: 700002 1 Tablet(s) PO Q6-8H as needed 03/19/2018 04/12/2018 Inactive Flomax 0.4 mg capsule RxNorm: 493671 1 Capsule(s) PO daily 03/10/2018 03/04/2019 Active Urecholine 25 mg tablet RxNorm: 885496 1 Tablet(s) PO BID 03/10/2018 07/07/2018 Inactive ketorolac 60 mg/2 mL intramuscular solution RxNorm: 7601002 Milliliter(s) IM 03/07/2018 03/07/2018 In active metformin 500 mg tablet RxNorm: 065258 Tablet(s) TAKE 1 TABLET BY MOUTH DAILY 02/20/2018 02/14/2019 Ac tive 1 q am and 1/2 tab q pm hydrocodone 5 mg-linh taminophen 325 mg tablet RxNorm: 459522 1 Tablet(s) PO Q6-8H as needed 02/20/2018 03/16/2018 Inactive Kenalog 40 mg/mL bartolome pension for injection RxNorm: 4361601 1.5 Milliliter(s) In j 01/30/2018 01/30/2018 In active hydrocodone 5 mg-linh taminophen 325 mg tablet RxNorm: 687564 1 Tablet(s) PO Q6-8H as needed 01/23/2018 02/16/2018 Inactive Urecholine 25 mg tablet RxNorm: 862980 1 Tablet(s) PO BID 01/22/2018 03/09/2018 Inactive Flomax 0.4 mg capsule RxNorm: 303857 1 Capsule(s) PO daily 01/22/2018 03/09/2018 Inactive Flomax 0.4 mg capsule RxNorm: 005884 1 Capsule(s) PO daily 01/22/2018 01/21/2018 Inactive Urecholine 25 mg tablet RxNorm: 326837 1 Tablet(s) PO BID 01/22/2018 01/21/2018 Inactive testosterone cypiona te 200 mg/mL intramuscular oil RxNorm: 008571 Milliliter(s) IM 01/17/2018 01/17/2018 In active testosterone cypiona te 200 mg/mL intramuscular oil RxNorm: 698891 1 Milliliter(s) IM monthly 01/17/2018 04/03/2018 Inactive lisinopril 10 mg tablet RxNorm: 052900 TAKE 1 TABLET BY MOUTH TWO TIMES DAILY 01/14/2018 01/08/2019 Ac tive - First Attempt Ref: [id number] doxycycline hyclate 100 mg tablet RxNorm: 729335 1 Tablet(s) PO BID 01/14/2018 01/23/2018 Inactive Xanax 0.5 mg tablet RxNorm: 557177 1 Tablet(s) PO TID 01/08/2018 04/06/2018 Inactive nystatin 100,000 uni t/mL oral suspension RxNorm: 797220 4 Milliliter(s) PO QI D Swish and swallow 01/08/2018 01/07/2018 Inactive nystatin 100,000 uni t/mL oral suspension RxNorm: 158531 4 Milliliter(s) PO QI D Swish and swallow 01/08/2018 01/12/2018 Inactive simvastatin 40 mg ta blet RxNorm: 669432 TAKE 1 TABLET BY MOUT H DAILY AT BEDTIME 12/30/2017 12/24/2018 Ac tive - First Attempt Ref: [id number] metformin 500 mg tablet RxNorm: 034102 TAKE 1 TABLET BY MOUTH DAILY 12/30/2017 02/19/2018 Inactive - First Attempt Ref: [id number] hydrocodone 5 mg-linh taminophen 325 mg tablet RxNorm: 386598 1 Tablet(s) PO Q6-8H as needed 12/25/2017 01/18/2018 Inactive Protonix 40 mg table t,delayed release RxNorm: 538394 Tablet(s) TAKE 1 TABL ET BY MOUTH DAILY 11/20/2017 04/03/2018 Inactive - Ref: [id number] Linzess 72 mcg capsule RxNorm: 0179022 1 Capsule(s) PO daily 11/19/2017 No Stop Date Active hydrocodone 5 mg-linh taminophen 325 mg tablet RxNorm: 500638 1 Tablet(s) PO Q6-8H as needed 11/19/2017 12/13/2017 Inactive hydrocodone 5 mg-linh taminophen 325 mg tablet RxNorm: 248518 1 Tablet(s) PO Q6-8H as needed 10/28/2017 11/18/2017 Inactive Xanax 0.5 mg tablet RxNorm: 094195 1 Tablet(s) PO TID 10/25/2017 12/22/2017 Inactive Xanax 0.5 mg tablet RxNorm: 829414 TAKE ONE TABLET BY MOUTH THREE TIMES A D AY 10/24/2017 12/22/2017 In active hydrocodone 5 mg-linh taminophen 325 mg tablet RxNorm: 911676 1 Tablet(s) PO Q6-8H as needed 09/30/2017 10/24/2017 Inactive Protonix 40 mg table t,delayed release RxNorm: 374465 TAKE 1 TABLET BY MOUT H DAILY 09/16/2017 11/19/2017 In active - Ref: [id number] Yovana Hoodar 300 unit/mL (1.5 mL) subcutaneous insulin pen RxNorm: 8063774 35 Unit(s) SQ QHS 08/30/2017 No Stop Date Active dosage increase hydrocodone 5 mg-linh taminophen 325 mg tablet RxNorm: 359243 1 Tablet(s) PO Q6-8H as needed 08/28/2017 09/29/2017 Inactive hydrocodone 5 mg-linh taminophen 325 mg tablet RxNorm: 222892 1 Tablet(s) PO Q6-8H as needed 07/23/2017 08/24/2017 Inactive lisinopril 10 mg tablet RxNorm: 655015 1 Tablet(s) PO BID Take 1 tablet by mout h daily 07/23/2017 01/13/2018 Inactive hydrocodone 5 mg-linh taminophen 325 mg tablet RxNorm: 188086 1 Tablet(s) PO Q6-8H as needed 06/27/2017 07/22/2017 Inactive Xanax 0.5 mg tablet RxNorm: 537644 1 Tablet(s) PO TID 06/18/2017 10/25/2017 Inactive hydrocodone 5 mg-linh taminophen 325 mg tablet RxNorm: 353582 1 Tablet(s) PO Q6-8H as needed 05/27/2017 06/26/2017 Inactive Levaquin 500 mg tablet RxNorm: 432921 1 Tablet(s) PO daily 05/24/2017 05/23/2017 Inactive Levaquin 500 mg tablet RxNorm: 532620 1 Tablet(s) PO daily 05/24/2017 05/30/2017 Inactive Protonix 40 mg table t,delayed release RxNorm: 467165 Take 1 tablet by mout h daily 04/29/2017 09/15/2017 In active - Ref: [id number] hydrocodone 5 mg-linh taminophen 325 mg tablet RxNorm: 724293 1 Tablet(s) PO Q6-8H as needed 04/25/2017 05/26/2017 Inactive metformin 500 mg tablet RxNorm: 633299 Take 1 tablet by mouth daily 04/08/2017 12/29/2017 Inactive - First Attempt Ref: [id number] hydrocodone 5 mg-linh taminophen 325 mg tablet RxNorm: 656389 1 Tablet(s) PO Q6-8H as needed 03/27/2017 04/24/2017 Inactive hydrocodone 5 mg-linh taminophen 325 mg tablet RxNorm: 845742 1 Tablet(s) PO Q6-8H as needed 02/25/2017 03/26/2017 Inactive Protonix 40 mg table t,delayed release RxNorm: 524637 Tablet(s) Take 1 tabl et by mouth BID 02/25/2017 04/28/2017 Inactive Protonix 40 mg table t,delayed release RxNorm: 977652 Tablet(s) Take 1 tabl et by mouth BID 02/19/2017 02/18/2017 Inactive Protonix 40 mg table t,delayed release RxNorm: 976230 Tablet(s) Take 1 tabl et by mouth BID 02/19/2017 02/24/2017 Inactive lisinopril 10 mg tablet RxNorm: 632209 Take 1 tablet by mouth daily 01/29/2017 07/22/2017 Inactive - First Attempt Ref: [id number] hydrocodone 5 mg-linh taminophen 325 mg tablet RxNorm: 698784 1 Tablet(s) PO Q6-8H as needed 01/25/2017 02/24/2017 Inactive simvastatin 40 mg ta blet RxNorm: 477684 Tablet(s) Take 1 tabl et by mouth daily at bedtime 01/03/2017 12/28/2017 Inactive lisinopril 10 mg tablet RxNorm: 189051 Tablet(s) Take 1 tablet by mouth daily 01/03/2017 01/28/2017 In active Protonix 40 mg table t,delayed release RxNorm: 369052 Tablet(s) Take 1 tabl et by mouth daily 12/28/2016 02/18/2017 Inactive hydrocodone 5 mg-linh taminophen 325 mg tablet RxNorm: 901096 1 Tablet(s) PO Q6-8H as needed 12/26/2016 01/24/2017 Inactive Xanax 0.5 mg tablet RxNorm: 731983 1 Tablet(s) PO TID 12/12/2016 03/11/2017 Inactive simvastatin 40 mg ta blet RxNorm: 425878 Tablet(s) Take 1 tabl et by mouth daily at bedtime 11/30/2016 01/02/2017 Inactive simvastatin 40 mg ta blet RxNorm: 787295 Take 1 tablet by mout h daily at bedtime 11/29/2016 11/29/2016 In active - First Attempt Ref: [id number] Protonix 40 mg table t,delayed release RxNorm: 126704 Take 1 tablet by mout h daily 11/27/2016 12/27/2016 In active - First Attempt Ref: [id number] hydrocodone 5 mg-linh taminophen 325 mg tablet RxNorm: 325765 1 Tablet(s) PO Q6-8H as needed 11/26/2016 12/25/2016 Inactive hydrocodone 5 mg-linh taminophen 325 mg tablet RxNorm: 191288 1 Tablet(s) PO Q8 as needed 10/24/2016 11/25/2016 Inactive Xanax 0.5 mg tablet RxNorm: 887131 1 Tablet(s) PO TID 10/09/2016 12/25/2016 Inactive hydrocodone 5 mg-linh taminophen 325 mg tablet RxNorm: 385712 1 Tablet(s) PO Q8 as needed 09/27/2016 10/23/2016 Inactive lisinopril 10 mg tablet RxNorm: 823843 Take 1 tablet by mouth daily 09/25/2016 01/02/2017 Inactive - First Attempt Ref: [id number] Vitamin D2 50,000 un it capsule RxNorm: 099349 1 Capsule(s) PO QW 09/06/2016 No Stop Date Active hydrocodone 5 mg-linh taminophen 325 mg tablet RxNorm: 052442 1 Tablet(s) PO Q8 as needed 08/28/2016 09/26/2016 Inactive Toujeo SoloStar 300 unit/mL (1.5 mL) subcutaneous insulin pen RxNorm: 2364363 25 Unit(s) SQ QHS 08/23/2016 08/29/2017 Inactive dosage increase hydrocodone 5 mg-linh taminophen 325 mg tablet RxNorm: 648938 1 Tablet(s) PO Q8 as needed 07/26/2016 08/27/2016 Inactive Protonix 40 mg table t,delayed release RxNorm: 069542 Take 1 tablet by mout h daily 07/24/2016 11/26/2016 In active - First Attempt Ref: [id number] hydrocodone 5 mg-linh taminophen 325 mg tablet RxNorm: 283529 1 Tablet(s) PO Q8 as needed 06/19/2016 07/21/2016 Inactive Tojanie SoloStar 300 unit/mL (1.5 mL) subcutaneous insulin pen RxNorm: 2076524 32 Unit(s) SQ QHS 05/30/2016 08/22/2016 Inactive dosage increase hydrocodone 5 mg-linh taminophen 325 mg tablet RxNorm: 765269 1 Tablet(s) PO Q8 as needed 05/22/2016 06/18/2016 Inactive hydrocodone 5 mg-linh taminophen 325 mg tablet RxNorm: 109509 1 Tablet(s) PO Q8 as needed 04/18/2016 05/17/2016 Inactive Protonix 40 mg table t,delayed release RxNorm: 391877 Take 1 tablet by mout h daily 04/05/2016 07/03/2016 In active - Ref: [id number] metformin 500 mg tablet RxNorm: 454464 Take 1 tablet by mouth daily 04/04/2016 07/02/2016 Inactive - Ref: [id number] Xanax 0.5 mg tablet RxNorm: 384390 1 Tablet(s) PO TID 03/30/2016 09/25/2016 Inactive Xanax 0.5 mg tablet RxNorm: 785696 1 Tablet(s) PO TID 03/23/2016 12/25/2016 Inactive hydrocodone 5 mg-linh taminophen 325 mg tablet RxNorm: 794531 1 Tablet(s) PO Q8 as needed 03/06/2016 04/04/2016 Inactive Cipro 500 mg tablet RxNorm: 907665 1 Tablet(s) PO BID 02/24/2016 03/04/2016 Inactive Miralax 17 gram oral powder packet RxNorm: 002658 1 packet PO every oth er day 01/27/2016 No Stop Date Active hydrocodone 5 mg-linh taminophen 325 mg tablet RxNorm: 719461 1 Tablet(s) PO Q8 as needed 01/27/2016 02/25/2016 Inactive lisinopril 10 mg tablet RxNorm: 172326 1 Tablet(s) PO daily 01/12/2016 09/24/2016 Inactive simvastatin 40 mg ta blet RxNorm: 210873 1 Tablet(s) PO QHS 01/12/2016 11/28/2016 Inactive simvastatin 40 mg ta blet RxNorm: 709662 1 Tablet(s) PO QHS 01/11/2016 01/11/2016 Inactive lisinopril 10 mg tablet RxNorm: 627284 1 Tablet(s) PO daily 01/06/2016 01/11/2016 Inactive simvastatin 40 mg ta blet RxNorm: 747379 1 Tablet(s) PO daily 12/28/2015 01/10/2016 Inactive hydrocodone 5 mg-linh taminophen 325 mg tablet RxNorm: 440773 1 Tablet(s) PO Q8 as needed 12/27/2015 01/26/2016 Inactive Xanax 0.5 mg tablet RxNorm: 415331 1 Tablet(s) PO TID 11/30/2015 03/29/2016 Inactive meclizine 25 mg tablet RxNorm: 929336 1 Tablet(s) PO Q6 PRN TAKE ONE TABLET BY MOUTH EVERY 6 HOURS NEEDED 11/25/2015 02/22/2016 Inactive Toujeo SoloStar 300 unit/mL (1.5 mL) subcutaneous insulin pen RxNorm: 0001046 30 Unit(s) SQ QHS 11/25/2015 05/29/2016 Inactive dosage increase omeprazole 20 mg cap jacquelyn,delayed release RxNorm: 511680 1 Capsule(s) PO daily 10/06/2015 01/26/2016 In active Toujeo SoloStar 300 unit/mL (1.5 mL) subcutaneous insulin pen RxNorm: 4486452 35 Unit(s) SQ QHS 08/02/2015 11/24/2015 Inactive dosage increase Vitamin D2 50,000 un it capsule RxNorm: 630375 1 Capsule(s) PO QW 08/02/2015 09/05/2016 Inactive hydrocodone 5 mg-linh taminophen 325 mg tablet RxNorm: 697199 1 Tablet(s) PO Q8 as needed 07/11/2015 12/26/2015 Inactive Xanax 0.5 mg tablet RxNorm: 083106 1 Tablet(s) PO TID 06/30/2015 06/29/2015 Inactive Xanax 0.5 mg tablet RxNorm: 427685 1 Tablet(s) PO TID 06/30/2015 12/25/2015 Inactive hydrocodone 5 mg-linh taminophen 325 mg tablet RxNorm: 083685 1 Tablet(s) PO Q8 as needed 05/06/2015 07/10/2015 Inactive Symbicort 160 mcg-4. 5 mcg/actuation HFA aerosol inhaler RxNorm: 0212310 INH 04/25/2015 No Stop Date Active Levemir FlexTouch 10 0 unit/mL (3 mL) subcutaneous insulin pen RxNorm: 411851 30 Unit(s) SQ QHS 04/25/2015 11/24/2015 Inactive prednisone 20 mg tablet RxNorm: 385177 1 Tablet(s) PO BID 04/25/2015 04/29/2015 Inactive metformin 500 mg tablet RxNorm: 330591 1 Tablet(s) PO daily 04/25/2015 04/03/2016 Inactive amoxicillin 500 mg c apsule RxNorm: 322204 1 Capsule(s) PO TID 04/14/2015 04/13/2015 Inactive amoxicillin 500 mg c apsule RxNorm: 100837 1 Capsule(s) PO TID a nd recommend probiotic tid (otc) 04/14/2015 04/20/2015 Inactive Kenalog 40 mg/mL bartolome pension for injection RxNorm: 3482137 Milliliter(s) Inj 04/12/2015 04/12/2015 In active hydrocodone 5 mg-linh taminophen 325 mg tablet RxNorm: 258441 1 Tablet(s) PO Q8 as needed 03/30/2015 05/05/2015 Inactive Lantus 100 unit/mL s ubcutaneous solution RxNorm: 735467 25 Unit(s) SQ QPM 03/24/2015 04/25/2015 In active meclizine 25 mg tablet RxNorm: 056977 Tablet(s) TAKE ONE TABLET BY MOUTH EVERY 6 HOURS NEEDED 03/08/2015 04/06/2015 Inactive meclizine 25 mg tablet RxNorm: 452580 TAKE ONE TABLET BY MOUTH EVERY 6 HOURS A S NEEDED 02/25/2015 03/03/2015 Inactive Lantus 100 unit/mL s ubcutaneous solution RxNorm: 802918 20 Unit(s) SQ QPM 02/23/2015 03/23/2015 In active Lantus 100 unit/mL s ubcutaneous solution RxNorm: 859113 25 Unit(s) SQ QPM 02/23/2015 02/22/2015 In active hydrocodone 5 mg-ilnh taminophen 325 mg tablet RxNorm: 161348 1 Tablet(s) PO Q8 as needed 02/17/2015 03/29/2015 Inactive Xanax 0.5 mg tablet RxNorm: 106487 1 Tablet(s) PO TID 02/03/2015 06/29/2015 Inactive Lantus 100 unit/mL s ubcutaneous solution RxNorm: 196854 20 Unit(s) SQ QPM 12/29/2014 02/22/2015 In active Phenergan 12.5 mg re ctal suppository RxNorm: 846383 1 Suppository RTL Q6 PRN 12/23/2014 No Stop Date Active nausea Kenalog 40 mg/mL bartolome pension for injection RxNorm: 3181887 Milliliter(s) Inj 12/23/2014 12/23/2014 In active prednisone 20 mg tablet RxNorm: 870687 2 Tablet(s) PO daily 12/13/2014 12/17/2014 Inactive prednisone 20 mg tablet RxNorm: 847420 2 Tablet(s) PO daily 12/13/2014 12/12/2014 Inactive meclizine 25 mg tablet RxNorm: 157883 1 Tablet(s) PO Q6 PRN 12/09/2014 02/24/2015 Inactive hydrocodone 5 mg-linh taminophen 325 mg tablet RxNorm: 626780 1 Tablet(s) PO Q8 as needed 12/09/2014 02/16/2015 Inactive Vitamin B-12 1,000 m cg/mL oral drops RxNorm: 2295645 1 Milliliter(s) PO d aily No Start Date Active Alphagan P 0.1 % eye drops RxNorm: 424510 1 Drop(s) OPH BID No Start Date Active aspirin 325 mg table t,delayed release RxNorm: 503180 1 Tablet(s) PO daily No Start Date Active Tricor 145 mg tablet RxNorm: 936652 1 Tablet(s) PO daily No Start Date Active vitamin [id number] B1 oral liquid RxNorm: 1,000 Microgram(s) PO daily No Start Date Active atenolol 50 mg tablet RxNorm: 247821 1 Tablet(s) PO daily No Start Date Active Protonix 40 mg table t,delayed release RxNorm: 501337 1 Tablet(s) PO daily No Start Date 04/04/2016 Inactive glipizide 10 mg tablet RxNorm: 373592 1 Tablet(s) PO BID No Start Date 03/22/2015 Inactive Lantus 100 unit/mL s ubcutaneous solution RxNorm: 874064 15 Unit(s) SQ QPM No Start Date 12/28/2014 Inactive lisinopril 10 mg tablet RxNorm: 913656 1 Tablet(s) PO daily No Start Date 01/05/2016 Inactive Vitamin D2 50,000 un it capsule RxNorm: 592193 1 Capsule(s) PO QW No Start Date 08/01/2015 Inactive Toujeo SoloStar 300 unit/mL (1.5 mL) subcutaneous insulin pen RxNorm: 3913030 30 Unit(s) SQ QHS No Start Date 08/01/2015 Inactive simvastatin 40 mg ta blet RxNorm: 127144 1 Tablet(s) PO daily No Start Date 12/27/2015 Inactive testosterone cypiona te 200 mg/mL intramuscular oil RxNorm: 436120 1 Milliliter(s) IM monthly No Start Date 01/16/2018 Inactive hydrocodone 5 mg-linh taminophen 325 mg tablet RxNorm: 311029 1 Tablet(s) PO Q8 as needed No Start Date 12/08/2014 Inactive metformin 500 mg tablet RxNorm: 849736 1 Tablet(s) PO daily No Start Date 04/24/2015 Inactive omeprazole 20 mg cap jacquelyn,delayed release RxNorm: 512265 1 Capsule(s) PO daily No Start Date 10/05/2015 Inactive Flomax 0.4 mg capsule RxNorm: 535330 1 Capsule(s) PO daily No Start Date 03/23/2015 Inactive Medication Administered Medication Codes Instruc tions Start Date Status testosterone cypionate 200 mg/mL intramuscular oil RxNorm: 5252773 1/2Milliliter 09/02/2018 No longer Active testosterone enanthate 200 mg/mL intramuscular oil RxNorm: 960480 Milliliter 08/21/2018 No longer Active testosterone cypionate 200 mg/mL intramuscular oil RxNorm: 2264486 Milliliter 08/08/2018 No longer Active testosterone cypionate 200 mg/mL intramuscular oil RxNorm: 9289659 /2Milliliter 07/28/2018 No longer Active testosterone cypionate 200 mg/mL intramuscular oil RxNorm: 469699 Milliliter 07/16/2018 No longer Active testosterone cypionate 200 mg/mL intramuscular oil RxNorm: 219176 Milliliter 07/02/2018 No longer Active testosterone cypionate 200 mg/mL intramuscular oil RxNorm: 512104 Milliliter 06/24/2018 No longer Active testosterone cypionate 200 mg/mL intramuscular oil RxNorm: 369716 Milliliter 06/13/2018 No longer Active testosterone cypionate 200 mg/mL intramuscular oil RxNorm: 212002 Milliliter 06/05/2018 No longer Active testosterone cypionate 200 mg/mL intramuscular oil RxNorm: 356158 Milliliter 05/30/2018 No longer Active testosterone cypionate 200 mg/mL intramuscular oil RxNorm: 605234 Milliliter 05/22/2018 No longer Active testosterone cypionate 200 mg/mL intramuscular oil RxNorm: 408732 /2Milliliter 05/12/2018 No longer Active testosterone cypionate 200 mg/mL intramuscular oil RxNorm: 775282 Milliliter 05/02/2018 No longer Active testosterone cypionate 200 mg/mL intramuscular oil RxNorm: 001542 0.5Milliliter 04/24/2018 No longer Active testosterone cypionate 200 mg/mL intramuscular oil RxNorm: 337662 /2Milliliter 04/17/2018 No longer Active ketorolac 60 mg/2 mL intramuscular solution RxNorm: 3186012 Milliliter 03/07/2018 No longer Active Kenalog 40 mg/mL suspension for injection RxNorm: 8786550 1.5Milliliter 01/30/2018 No longer Active testosterone cypionate 200 mg/mL intramuscular oil RxNorm: 768967 Milliliter 01/17/2018 No longer Active Kenalog 40 mg/mL suspension for injection RxNorm: 6436739 Milliliter 04/12/2015 No longer Active Kenalog 40 mg/mL suspension for injection RxNorm: 3415608 Milliliter 12/23/2014 No longer Active Immunizations Vaccine Codes Date Status Influenza CVX: 141 06/06 completed Influenza CVX: 141 04/25 completed Pneumococcal (Adult) CVX: 133 04/25/2017 completed Influenza CVX: 141 05/22 completed Assessments Condition Codes Effectiv e Dates Mixed hyperlipidemia ICD-10: E78.2 ICD-9: 272.2 09/02/2018 Essential (primary) hypertension ICD -10: I10 ICD-9: 401.9 09/02/2018 Chronic obstructive pulmonary disease, unspecified ICD-10: J44.9 ICD-9: 496 09/02/2018 Testicular dysfunction, unspecified ICD-10: E29.9 ICD-9: 257.9 09/02/2018 Type 2 diabetes mellitus with hyperglycemia [...] Z72.0 ICD-9: 305.1 11/25/2015 DYSURIA ICD-9: 788.1 DIABETES TYPE II ICD-9: 250.00 05/06/2015 Cough ICD-9: 786.2 05/06 ESSENTIAL HYPERTENSION ICD-9: 401.9 05/06/2015 COPD (chronic obstructive pulmonary disease) ICD-9: 496 05/06/2015 Muscle ache ICD-9: 729.1 04/25/2015 ACUTE URI ICD-9: 465.9 0 04/12/2015 ACTINIC KERATOSIS ICD-9: 702.0 04/12/2015 Hypoglycemia ICD-9: 251.2 03/07/2015 Skin texture changes ICD-9: 782.8 03/07/2015 Fatigue ICD-9: 780.79 Unsteady gait ICD-9: [...] Observation Code Item Item Code Result Date Comp Metabolic Qtp341 NA 137 mEq/L 09/08/2018 Comp Metabolic Voj933 K 4.3 mEq/L 09/08/2018 Comp Metabolic Bom044 CL 100 mEq/L 09/08/2018 Comp Metabolic Zni948 CO2 27.0 mEq/L 09/08/2018 Comp Metabolic Hfa116 AN ION GAP 14 09/08/2018 Comp Metabolic Oat958 GL UCOSE 85 mg/dL 09/08/2018 Comp Metabolic Awf597 Cr eat 1.1 mg/dL 09/08/2018 Comp Metabolic Szr041 eG FR 70 ml/min/1.73m2 09/08 Comp Metabolic Net674 BUN 11 mg/dL 09/08/2018 Comp Metabolic Iog465 B/ C Ratio 10.3 Ratio 09/08/2018 Comp Metabolic Wmi097 CA LCIUM 9.2 mg/dL 09/08/2018 Comp Metabolic Wiw083 AL K PHOS 65 U/L 09/08/2018 Comp Metabolic Iwa053 T(SGOT) 16 U/L 09/08/2018 Comp Metabolic Als114 AL T(SGPT) 14 U/L 09/08/2018 Comp Metabolic Wjw654 BI LI T 0.6 mg/dL 09/08/2018 Comp Metabolic Pvs149 AL BUMIN 4.0 g/dL 09/08/2018 Comp Metabolic Ilo575 TP RO 6.6 g/dL 09/08/2018 Comp Metabolic Gad171 GL OB 2.6 g/dL 09/08/2018 Comp Metabolic Sfn954 A/ G Ratio 1.6 Ratio 09/08/2018 Comp Metabolic Vac623 Os mo 272 mOsmo 09/08/2018 Vitamin D 25 Oh Nnc3525 VITAMIN D, 25 HYDROXY 37.17 ng/mL 09/08/2018 Tsh Ord6 TSH (3rd IS) 2.72 uIU/mL 09/08/2018 Cbc With Differential Ord2 WBC 7.43 [...] 33.3 pg 09/08/2018 Cbc With Differential Ord2 [place]% 8.1 % 09/08/2018 Cbc With Differential Ord2 Eos% 4.3 % 09/08/2018 Cbc With Differential Ord2 MCHC 34.1 pg 09/08/2018 Cbc With Differential Ord2 PLT 197 K/ul 09/08/2018 Cbc With Differential Ord2 Baso% 0.3 % 09/08/2018 Cbc With Differential Ord2 Neut ABS# 4.05 K/ul 09/08/2018 Cbc With Differential Ord2 RDW 16.0 % 09/08/2018 Cbc With Differential Ord2 Lymph ABS# 2.44 K/ul 09/08/2018 Cbc With Differential Ord2 [place] ABS# 0.6 K/ul 09/08/2018 Cbc With Differential Ord2 Eos ABS# 0.3 K/ul 09/08/2018 Cbc With Differential Ord2 Baso ABS# 0.0 K/ul 09/08/2018 Lipid Ord30 CHOL 114 mg/dL 09/08/2018 Lipid Ord30 HDL 28.0 mg/dl 09/08/2018 Lipid Ord30 TRIG 154 mg/dL 09/08/2018 Lipid Ord30 LDL 55 mg/dL 09/08/2018 Lipid Ord30 C/HDL 4.1 Ratio 09/08/2018 %Hba1C Qhm309 % HbA1c 15393-3 7.4 % 09/08/2018 %Hba1C Qug948 Gluc Ave 166 mg/dL 09/08/2018 Testosterone Dgj153 Testo 669.0 ng/dL 09/08/2018 Comp Metabolic Wgp274 NA 139 mEq/L 04/01/2018 Comp Metabolic Kkx633 K 4.2 mEq/L 04/01/2018 Comp Metabolic Ybo978 CL 102 mEq/L 04/01/2018 Comp Metabolic Pkj746 CO2 29.0 mEq/L 04/01/2018 Comp Metabolic Zyo794 AN ION GAP 12 04/01/2018 Comp Metabolic Ljp762 GL UCOSE 87 mg/dL 04/01/2018 Comp Metabolic Ivn146 Cr eat 1.1 mg/dL 04/01/2018 Comp Metabolic Uqq428 eG FR 70 ml/min/1.73m2 04/01 Comp Metabolic Ueq234 BUN 21 mg/dL 04/01/2018 Comp Metabolic Zql321 B/ C Ratio 19.4 Ratio 04/01/2018 Comp Metabolic Mof973 CA LCIUM 9.1 mg/dL 04/01/2018 Comp Metabolic Ftq703 AL K PHOS 60 U/L 04/01/2018 Comp Metabolic Ifz898 T(SGOT) 15 U/L 04/01/2018 Comp Metabolic Yze684 AL T(SGPT) 18 U/L 04/01/2018 Comp Metabolic Xqq470 BI LI T 0.4 mg/dL 04/01/2018 Comp Metabolic Yjl759 AL BUMIN 4.0 g/dL 04/01/2018 Comp Metabolic Ytl442 TP RO 6.5 g/dL 04/01/2018 Comp Metabolic Wko997 GL OB 2.5 g/dL 04/01/2018 Comp Metabolic Bvu324 A/ G Ratio 1.6 Ratio 04/01/2018 Comp Metabolic Edw953 Os mo 280 mOsmo 04/01/2018 Lipid Ord30 [...] 101.6 fl 04/01/2018 Cbc With Differential Ord2 [place]% 6.0 % 04/01/2018 Cbc With Differential Ord2 MCH 34.3 pg 04/01/2018 Cbc With Differential Ord2 Eos% 4.5 % 04/01/2018 Cbc With Differential Ord2 MCHC 33.8 pg 04/01/2018 Cbc With Differential Ord2 Baso% 0.1 % 04/01/2018 Cbc With Differential Ord2 PLT 213 K/ul 04/01/2018 Cbc With Differential Ord2 RDW 13.8 % 04/01/2018 Cbc With Differential Ord2 Neut ABS# 4.96 K/ul 04/01/2018 Cbc With Differential Ord2 Lymph ABS# 3.25 K/ul 04/01/2018 Cbc With Differential Ord2 [place] ABS# 0.6 K/ul 04/01/2018 Cbc With Differential Ord2 Eos ABS# 0.4 K/ul 04/01/2018 Cbc With Differential Ord2 Baso ABS# 0.0 K/ul 04/01/2018 %Hba1C Izq946 % HbA1c 70171-3 8.0 % 04/01/2018 %Hba1C Qdq060 Gluc Ave 183 mg/dL 04/01/2018 Testosterone Iem859 Testo 111.3 ng/dL 04/01/2018 Cbc With Differential Ord2 WBC 12.03 K/ul [...] 36.0 pg 01/14/2018 Cbc With Differential Ord2 [place]% 6.8 % 01/14/2018 Cbc With Differential Ord2 [...] 2.71 K/ul 01/14/2018 Cbc With Differential Ord2 [place] ABS# 0.8 K/ul 01/14/2018 Cbc With Differential Ord2 Eos ABS# 0.2 K/ul 01/14/2018 Cbc With Differential Ord2 Baso ABS# 0.0 K/ul 01/14/2018 Testosterone Fnb437 Testo 135.4 ng/dL 01/14/2018 Vitamin D 25 Oh Glp2328 VITAMIN D, 25 HYDROXY 43.72 ng/mL 11/20/2017 %Hba1C Day030 % HbA1c 59501-0 7.4 % 11/20/2017 %Hba1C Ero142 Gluc Ave 166 mg/dL 11/20/2017 Cbc With Differential Ord2 WBC 8.14 K/ul 11/20/2017 Cbc With Differential Ord2 RBC 3.38 M/ul 11/20/2017 Cbc With Differential Ord2 HGB 11.9 g/dl 11/20/2017 Cbc With Differential Ord2 HCT 34.9 % 11/20/2017 Cbc With Differential Ord2 Neut% 48.2 % 11/20/2017 Cbc With Differential Ord2 Lymph% 41.0 % 11/20/2017 Cbc With Differential Ord2 MCV 103.3 fl 11/20/2017 Cbc With Differential Ord2 [place]% 7.2 % 11/20/2017 Cbc With Differential Ord2 MCH 35.2 pg 11/20/2017 Cbc With Differential Ord2 Eos% 3.4 % 11/20/2017 Cbc With Differential Ord2 MCHC 34.1 pg 11/20/2017 Cbc With Differential Ord2 Baso% 0.2 % 11/20/2017 Cbc With Differential Ord2 PLT 211 K/ul 11/20/2017 Cbc With Differential Ord2 RDW 13.7 % 11/20/2017 Cbc With Differential Ord2 Neut ABS# 3.91 K/ul 11/20/2017 Cbc With Differential Ord2 Lymph ABS# 3.34 K/ul 11/20/2017 Cbc With Differential Ord2 [place] ABS# 0.6 K/ul 11/20/2017 Cbc With Differential Ord2 Eos ABS# 0.3 K/ul 11/20/2017 Cbc With Differential Ord2 Baso ABS# 0.0 K/ul 11/20/2017 Comp Metabolic Ghc853 NA 134 mEq/L 11/20/2017 Comp Metabolic Lce958 K 4.4 mEq/L 11/20/2017 Comp Metabolic Qpy462 CL 99 mEq/L 11/20/2017 Comp Metabolic Esp013 CO2 29.0 mEq/L 11/20/2017 Comp Metabolic Sem045 AN ION GAP 10 11/20/2017 Comp Metabolic Imj823 GL UCOSE 218 mg/dL 11/20/2017 Comp Metabolic Hrm564 Cr eat 1.0 mg/dL 11/20/2017 Comp Metabolic Eef035 eG FR 78 ml/min/1.73m2 11/20 Comp Metabolic Uxx766 BUN 13 mg/dL 11/20/2017 Comp Metabolic Bcp351 B/ C Ratio 13.3 Ratio 11/20/2017 Comp Metabolic Zgr607 CA LCIUM 9.0 mg/dL 11/20/2017 Comp Metabolic Wmp999 AL K PHOS 71 U/L 11/20/2017 Comp Metabolic Csz051 T(SGOT) 18 U/L 11/20/2017 Comp Metabolic Lak362 AL T(SGPT) 17 U/L 11/20/2017 Comp Metabolic Lov141 BI LI T 0.4 mg/dL 11/20/2017 Comp Metabolic Thw354 AL BUMIN 4.1 g/dL 11/20/2017 Comp Metabolic Rvf780 TP RO 6.5 g/dL 11/20/2017 Comp Metabolic Hdt653 GL OB 2.4 g/dL 11/20/2017 Comp Metabolic Wjx849 A/ G Ratio 1.8 Ratio 11/20/2017 Comp Metabolic Bsl217 Os mo 275 mOsmo 11/20/2017 %Hba1C Ffe584 % HbA1c 27098-4 7.2 % 08/20/2017 %Hba1C Hyf417 Gluc Ave 160 mg/dL 08/20/2017 Lipid Ord30 CHOL 114 mg/dL 08/20/2017 Lipid Ord30 HDL 28.0 mg/dl 08/20/2017 Lipid Ord30 TRIG 153 mg/dL 08/20/2017 Lipid Ord30 LDL 55 mg/dL 08/20/2017 Lipid Ord30 C/HDL 4.1 Ratio 08/20/2017 Vitamin D 25 Oh Fgl9481 VITAMIN D, 25 HYDROXY 30.96 ng/mL 08/20/2017 Comp Metabolic Vfj136 NA 138 mEq/L 08/20/2017 Comp Metabolic Enr883 K 4.3 mEq/L 08/20/2017 Comp Metabolic Etu511 CL 102 mEq/L 08/20/2017 Comp Metabolic Ern167 CO2 29.0 mEq/L 08/20/2017 Comp Metabolic Ypl690 AN ION GAP 11 08/20/2017 Comp Metabolic Qxf646 GL UCOSE 89 mg/dL 08/20/2017 Comp Metabolic Xlk053 Cr eat 1.0 mg/dL 08/20/2017 Comp Metabolic Jta715 eG FR 80 ml/min/1.73m2 08/20 Comp Metabolic Irv602 BUN 13 mg/dL 08/20/2017 Comp Metabolic Gxx245 B/ C Ratio 13.5 Ratio 08/20/2017 Comp Metabolic Yxq644 CA LCIUM 9.2 mg/dL 08/20/2017 Comp Metabolic Fms470 AL K PHOS 69 U/L 08/20/2017 Comp Metabolic Qtp073 T(SGOT) 18 U/L 08/20/2017 Comp Metabolic Ald362 AL T(SGPT) 19 U/L 08/20/2017 Comp Metabolic Osv838 BI LI T 0.6 mg/dL 08/20/2017 Comp Metabolic Nce979 AL BUMIN 4.0 g/dL 08/20/2017 Comp Metabolic Cwp221 TP RO 6.6 g/dL 08/20/2017 Comp Metabolic Opx812 GL OB 2.6 g/dL 08/20/2017 Comp Metabolic Cwk999 A/ G Ratio 1.5 Ratio 08/20/2017 Comp Metabolic Jhu337 Os mo 275 mOsmo 08/20/2017 Tsh Ord6 hTSH II 2.27 uIU/mL 08/20/2017 Cbc With Differential Ord2 WBC 8.32 K/ul 08/20/2017 Cbc With Differential Ord2 RBC 3.52 M/ul 08/20/2017 Cbc With Differential Ord2 HGB 12.2 g/dl 08/20/2017 Cbc With Differential Ord2 HCT 36.2 % 08/20/2017 Cbc With Differential Ord2 Neut% 59.7 % 08/20/2017 Cbc With Differential Ord2 Lymph% 29.1 % 08/20/2017 Cbc With Differential Ord2 MCV 102.8 fl 08/20/2017 Cbc With Differential Ord2 MCH 34.7 pg 08/20/2017 Cbc With Differential Ord2 [place]% 7.6 % 08/20/2017 Cbc With Differential Ord2 Eos% 3.4 % 08/20/2017 Cbc With Differential Ord2 MCHC 33.7 pg 08/20/2017 Cbc With Differential Ord2 PLT 215 K/ul 08/20/2017 Cbc With Differential Ord2 Baso% 0.2 % 08/20/2017 Cbc With Differential Ord2 RDW 14.0 % 08/20/2017 Cbc With Differential Ord2 Neut ABS# 4.97 K/ul 08/20/2017 Cbc With Differential Ord2 Lymph ABS# 2.42 K/ul 08/20/2017 Cbc With Differential Ord2 [place] ABS# 0.6 K/ul 08/20/2017 Cbc With Differential Ord2 Eos ABS# 0.3 K/ul 08/20/2017 Cbc With Differential Ord2 Baso ABS# 0.0 K/ul 08/20/2017 B12 Fvd006 B12 >1500.00 pg/ml 02/22/2017 Comp Metabolic Fdi699 NA 138 mEq/L 02/20/2017 Comp Metabolic Ojy572 K 4.5 mEq/L 02/20/2017 Comp Metabolic Swy338 CL 101 mEq/L 02/20/2017 Comp Metabolic Fia559 CO2 31.0 mEq/L 02/20/2017 Comp Metabolic Jeu207 AN ION GAP 11 02/20/2017 Comp Metabolic Nfy896 GL UCOSE 120 mg/dL 02/20/2017 Comp Metabolic Ypo488 Cr eat 0.9 mg/dL 02/20/2017 Comp Metabolic Cah323 eG FR 83 ml/min/1.73m2 02/20 Comp Metabolic Pbr399 BUN 15 mg/dL 02/20/2017 Comp Metabolic Rxd631 B/ C Ratio 16.1 Ratio 02/20/2017 Comp Metabolic Bhx391 CA LCIUM 9.1 mg/dL 02/20/2017 Comp Metabolic Zop400 AL K PHOS 67 U/L 02/20/2017 Comp Metabolic Ges438 T(SGOT) 15 U/L 02/20/2017 Comp Metabolic Wpk950 AL T(SGPT) 16 U/L 02/20/2017 Comp Metabolic Hub376 BI LI T 0.5 mg/dL 02/20/2017 Comp Metabolic Hpn126 AL BUMIN 4.0 g/dL 02/20/2017 Comp Metabolic Rdj436 TP RO 6.4 g/dL 02/20/2017 Comp Metabolic Qjl942 GL OB 2.4 g/dL 02/20/2017 Comp Metabolic Wcw008 A/ G Ratio 1.7 Ratio 02/20/2017 Comp Metabolic Wcn365 Os mo 278 mOsmo 02/20/2017 Tsh Ord6 hTSH II 2.05 uIU/mL 02/20/2017 %Hba1C Atq740 % HbA1c 79829-6 7.6 % 02/20/2017 %Hba1C Yht515 Gluc Ave 171 mg/dL 02/20/2017 Cbc With Differential Ord2 WBC 8.52 K/ul 02/20/2017 Cbc With Differential Ord2 RBC 3.22 M/ul 02/20/2017 Cbc With Differential Ord2 HGB 11.5 g/dl 02/20/2017 Cbc With Differential Ord2 Neut% 51.3 % 02/20/2017 Cbc With Differential Ord2 HCT 34.3 % 02/20/2017 Cbc With Differential Ord2 MCV 106.5 fl 02/20/2017 Cbc With Differential Ord2 Lymph% 37.4 % 02/20/2017 Cbc With Differential Ord2 MCH 35.7 pg 02/20/2017 Cbc With Differential Ord2 [place]% 6.3 % 02/20/2017 Cbc With Differential Ord2 MCHC 33.5 pg 02/20/2017 Cbc With Differential Ord2 Eos% 4.6 % 02/20/2017 Cbc With Differential Ord2 Baso% 0.4 % 02/20/2017 Cbc With Differential Ord2 PLT 205 K/ul 02/20/2017 Cbc With Differential Ord2 RDW 14.9 % 02/20/2017 Cbc With Differential Ord2 Neut ABS# 4.37 K/ul 02/20/2017 Cbc With Differential Ord2 Lymph ABS# 3.19 K/ul 02/20/2017 Cbc With Differential Ord2 [place] ABS# 0.5 K/ul 02/20/2017 Cbc With Differential Ord2 Eos ABS# 0.4 K/ul 02/20/2017 Cbc With Differential Ord2 Baso ABS# 0.0 K/ul 02/20/2017 Comp Metabolic Uml343 NA 131 mEq/L 12/21/2016 Comp Metabolic Etr570 K 4.2 mEq/L 12/21/2016 Comp Metabolic Yyz859 CL 97 mEq/L 12/21/2016 Comp Metabolic Bqw891 CO2 27.0 mEq/L 12/21/2016 Comp Metabolic Bga216 AN ION GAP 11 12/21/2016 Comp Metabolic Uvb158 GL UCOSE 266 mg/dL 12/21/2016 Comp Metabolic Kxx910 Cr eat 0.9 mg/dL 12/21/2016 Comp Metabolic Kcn170 eG FR 88 ml/min/1.73m2 12/21 Comp Metabolic Xfi411 BUN 12 mg/dL 12/21/2016 Comp Metabolic Ath957 B/ C Ratio 13.6 Ratio 12/21/2016 Comp Metabolic Hmk305 CA LCIUM 8.6 mg/dL 12/21/2016 Comp Metabolic Klk982 AL K PHOS 69 U/L 12/21/2016 Comp Metabolic Tza581 T(SGOT) 15 U/L 12/21/2016 Comp Metabolic Dqn733 AL T(SGPT) 14 U/L 12/21/2016 Comp Metabolic Bos636 BI LI T 0.3 mg/dL 12/21/2016 Comp Metabolic Iwc991 AL BUMIN 3.7 g/dL 12/21/2016 Comp Metabolic Mgq881 TP RO 5.9 g/dL 12/21/2016 Comp Metabolic Wzz633 GL OB 2.2 g/dL 12/21/2016 Comp Metabolic Ryi307 A/ G Ratio 1.7 Ratio 12/21/2016 Comp Metabolic Mhr139 Os mo 272 mOsmo 12/21/2016 Cbc With [...] 34.6 pg 12/21/2016 Cbc With Differential Ord2 [place]% 6.9 % 12/21/2016 Cbc With Differential Ord2 [...] 2.05 K/ul 12/21/2016 Cbc With Differential Ord2 [place] ABS# 0.4 K/ul 12/21/2016 Cbc With Differential Ord2 Eos ABS# 0.2 K/ul 12/21/2016 Cbc With Differential Ord2 Baso ABS# 0.0 K/ul 12/21/2016 Vitamin D 25 Oh Hxx9389 VITAMIN D, 25 HYDROXY 44.40 ng/mL 12/21/2016 Comp Metabolic Smd581 NA 138 mEq/L 09/03/2016 Comp Metabolic Azv603 K 4.5 mEq/L 09/03/2016 Comp Metabolic Llk136 CL 102 mEq/L 09/03/2016 Comp Metabolic Wvj997 CO2 30.0 mEq/L 09/03/2016 Comp Metabolic Apl026 AN ION GAP 11 09/03/2016 Comp Metabolic Eja404 GL UCOSE 113 mg/dL 09/03/2016 Comp Metabolic Oja430 Cr eat 1.0 mg/dL 09/03/2016 Comp Metabolic Mkd152 eG FR 81 ml/min/1.73m2 09/03 Comp Metabolic Kii736 BUN 10 mg/dL 09/03/2016 Comp Metabolic Yrp408 B/ C Ratio 10.5 Ratio 09/03/2016 Comp Metabolic Lmh635 CA LCIUM 9.1 mg/dL 09/03/2016 Comp Metabolic Oaz073 AL K PHOS 71 U/L 09/03/2016 Comp Metabolic Eyi758 T(SGOT) 18 U/L 09/03/2016 Comp Metabolic Tqk793 AL T(SGPT) 17 U/L 09/03/2016 Comp Metabolic Djq854 BI LI T 0.6 mg/dL 09/03/2016 Comp Metabolic Fek603 AL BUMIN 4.1 g/dL 09/03/2016 Comp Metabolic Gkz284 TP RO 6.4 g/dL 09/03/2016 Comp Metabolic Sqs380 GL OB 2.3 g/dL 09/03/2016 Comp Metabolic Azc840 A/ G Ratio 1.8 Ratio 09/03/2016 Comp Metabolic Jxe744 Os mo 276 mOsmo 09/03/2016 Tsh Ord6 hTSH II 4.12 uIU/mL [...] 34.4 pg 09/03/2016 Cbc With Differential Ord2 [place]% 8.9 % 09/03/2016 Cbc With Differential Ord2 Eos% 5.0 % 09/03/2016 Cbc With Differential Ord2 MCHC 33.8 pg 09/03/2016 Cbc With Differential Ord2 PLT 163 K/ul 09/03/2016 Cbc With Differential Ord2 Baso% 0.1 % 09/03/2016 Cbc With Differential Ord2 Neut ABS# 3.59 K/ul 09/03/2016 Cbc With Differential Ord2 RDW 13.6 % 09/03/2016 Cbc With Differential Ord2 Lymph ABS# 3.34 K/ul 09/03/2016 Cbc With Differential Ord2 [place] ABS# 0.7 K/ul 09/03/2016 Cbc With Differential Ord2 Eos ABS# 0.4 K/ul 09/03/2016 Cbc With Differential Ord2 Baso ABS# 0.0 K/ul 09/03/2016 Lipid Ord30 CHOL 120 mg/dL 09/03/2016 Lipid Ord30 HDL 33.0 mg/dl 09/03/2016 Lipid Ord30 TRIG 161 mg/dL 09/03/2016 Lipid Ord30 LDL 55 mg/dL 09/03/2016 Lipid Ord30 C/HDL 3.6 Ratio 09/03/2016 %Hba1C Tku366 % HbA1c 52171-7 7.5 % 09/03/2016 %Hba1C Cwf341 Gluc Ave 169 mg/dL 09/03/2016 Vitamin D 25 Oh Jzi8661 VITAMIN D, 25 HYDROXY 28.23 ng/mL 09/03/2016 Tsh Ord6 hTSH II 1.50 uIU/mL 05/23/2016 %Hba1C Acl101 % HbA1c 16090-3 7.6 % 05/23/2016 %Hba1C Jry117 Gluc Ave 171 mg/dL 05/23/2016 Comp Metabolic Gjj814 NA 135 mEq/L 05/23/2016 Comp Metabolic Noz731 K 4.4 mEq/L 05/23/2016 Comp Metabolic Yrd460 CL 99 mEq/L 05/23/2016 Comp Metabolic Svy805 CO2 28.0 mEq/L 05/23/2016 Comp Metabolic Wxi563 AN ION GAP 12 05/23/2016 Comp Metabolic Ovr480 GL UCOSE 257 mg/dL 05/23/2016 Comp Metabolic Edz073 Cr eat 0.8 mg/dL 05/23/2016 Comp Metabolic Jvn095 eG FR 95 ml/min/1.73m2 05/23 Comp Metabolic Odm528 BUN 11 mg/dL 05/23/2016 Comp Metabolic Uks939 B/ C Ratio 13.3 Ratio 05/23/2016 Comp Metabolic Jht477 CA LCIUM 9.0 mg/dL 05/23/2016 Comp Metabolic Jmv209 AL K PHOS 82 U/L 05/23/2016 Comp Metabolic Ckx494 T(SGOT) 21 U/L 05/23/2016 Comp Metabolic Fxv597 AL T(SGPT) 20 U/L 05/23/2016 Comp Metabolic Nnn675 BI LI T 0.3 mg/dL 05/23/2016 Comp Metabolic Fsc687 AL BUMIN 4.0 g/dL 05/23/2016 Comp Metabolic Hcy570 TP RO 6.4 g/dL 05/23/2016 Comp Metabolic Znf221 GL OB 2.4 g/dL 05/23/2016 Comp Metabolic Usz414 A/ G Ratio 1.6 Ratio 05/23/2016 Comp Metabolic Xie483 Os mo 278 mOsmo 05/23/2016 Cbc With [...] 37.2 % 05/23/2016 Cbc With Differential Ord2 [place]% 6.1 % 05/23/2016 Cbc With Differential Ord2 MCH 34.5 pg 05/23/2016 Cbc With Differential Ord2 MCHC 33.8 pg 05/23/2016 Cbc With Differential Ord2 Eos% 3.4 % 05/23/2016 Cbc With Differential Ord2 PLT 192 K/ul 05/23/2016 Cbc With Differential Ord2 Baso% 0.5 % 05/23/2016 Cbc With Differential Ord2 RDW 13.5 % 05/23/2016 Cbc With Differential Ord2 Neut ABS# 3.37 K/ul 05/23/2016 Cbc With Differential Ord2 Lymph ABS# 2.38 K/ul 05/23/2016 Cbc With Differential Ord2 [place] ABS# 0.4 K/ul 05/23/2016 Cbc With Differential Ord2 Eos ABS# 0.2 K/ul 05/23/2016 Cbc With Differential Ord2 Baso ABS# 0.0 K/ul 05/23/2016 B12 Bgp245 B12 597.00 pg/ml 05/23/2016 Metabolic Ord15 NA [...] Metabolic Ord15 CALCIUM 9.1 mg/dL 01/10/2016 %Hba1C Job154 % HbA1c 48467-7 8.8 % 07/29/2015 %Hba1C Lcu523 Gluc Ave 206 mg/dL 07/29/2015 Vitamin D 25 Oh Dpf3732 VITAMIN D, 25 HYDROXY 26.93 ng/mL 07/29/2015 Tsh Ord6 hTSH II 0.92 uIU/mL 07/29/2015 Cbc With Differential Ord2 WBC 7.0 [...] Ord2 RDW 14.9 % 07/29/2015 Comp Metabolic Dlh522 NA 138 mEq/L 07/29/2015 Comp Metabolic Bkd614 K 4.4 mEq/L 07/29/2015 Comp Metabolic Rqy199 CL 102 mEq/L 07/29/2015 Comp Metabolic Mgy193 CO2 28.0 mEq/L 07/29/2015 Comp Metabolic Bqc489 AN ION GAP 12 07/29/2015 Comp Metabolic Szd226 GL UCOSE 261 mg/dL 07/29/2015 Comp Metabolic Nev614 Cr eat 1.0 mg/dL 07/29/2015 Comp Metabolic Zff315 eG FR 77 ml/min/1.73m2 07/29 Comp Metabolic Slc094 BUN 13 mg/dL 07/29/2015 Comp Metabolic Ukx167 B/ C Ratio 13.0 Ratio 07/29/2015 Comp Metabolic Aie777 CA LCIUM 9.1 mg/dL 07/29/2015 Comp Metabolic Ulu793 AL K PHOS 64 U/L 07/29/2015 Comp Metabolic Jog635 T(SGOT) 20 U/L 07/29/2015 Comp Metabolic Xfh290 AL T(SGPT) 22 U/L 07/29/2015 Comp Metabolic Vog467 BI LI T 0.4 mg/dL 07/29/2015 Comp Metabolic Jgp505 AL BUMIN 4.0 g/dL 07/29/2015 Comp Metabolic Lnr243 TP RO 6.1 g/dL 07/29/2015 Comp Metabolic Dql725 GL OB 2.1 g/dL 07/29/2015 Comp Metabolic Tbe195 A/ G Ratio 1.9 Ratio 07/29/2015 Comp Metabolic Tqb917 Os mo 285 mOsmo 07/29/2015 Cbc With [...] Ord2 RDW 13.1 % 05/06/2015 Comp Metabolic Lrq414 NA 134 mEq/L 05/06/2015 Comp Metabolic Hvd980 K 4.4 mEq/L 05/06/2015 Comp Metabolic Vvh400 CL 98 mEq/L 05/06/2015 Comp Metabolic Ldc513 CO2 29.0 mEq/L 05/06/2015 Comp Metabolic Ywd762 AN ION GAP 11 05/06/2015 Comp Metabolic Bdj124 GL UCOSE 321 mg/dL 05/06/2015 Comp Metabolic Dxg812 Cr eat 1.0 mg/dL 05/06/2015 Comp Metabolic Nqw367 eG FR 78 ml/min/1.73m2 05/06 Comp Metabolic Ufv018 BUN 20 mg/dL 05/06/2015 Comp Metabolic Hbl416 B/ C Ratio 20.4 Ratio 05/06/2015 Comp Metabolic Iar400 CA LCIUM 9.5 mg/dL 05/06/2015 Comp Metabolic Miu861 AL K PHOS 62 U/L 05/06/2015 Comp Metabolic Nuc917 T(SGOT) 21 U/L 05/06/2015 Comp Metabolic Oqe809 AL T(SGPT) 37 U/L 05/06/2015 Comp Metabolic Lku523 BI LI T 0.4 mg/dL 05/06/2015 Comp Metabolic Hsq405 AL BUMIN 3.8 g/dL 05/06/2015 Comp Metabolic Qmi926 TP RO 6.1 g/dL 05/06/2015 Comp Metabolic Cnz404 GL OB 2.3 g/dL 05/06/2015 Comp Metabolic Efu368 A/ G Ratio 1.7 Ratio 05/06/2015 Comp Metabolic Iqk918 Os mo 283 mOsmo 05/06/2015 Tsh Ord6 hTSH II 1.65 uIU/mL 02/18/2015 B12 Pxq048 B12 605.00 pg/ml 02/18/2015 %Hba1C Ylo521 % HbA1c 61488-4 8.3 % 02/18/2015 %Hba1C Tna523 Gluc Ave 192 mg/dL 02/18/2015 Cbc With [...] Ord2 RDW 13.9 % 02/17/2015 Comp Metabolic Rdx076 NA 137 mEq/L 02/17/2015 Comp Metabolic Axe580 K 4.4 mEq/L 02/17/2015 Comp Metabolic Mno523 CL 100 mEq/L 02/17/2015 Comp Metabolic Pfk572 CO2 31.0 mEq/L 02/17/2015 Comp Metabolic Ohp930 AN ION GAP 10 02/17/2015 Comp Metabolic Kvg984 GL UCOSE 307 mg/dL 02/17/2015 Comp Metabolic Dva689 Cr eat 1.0 mg/dL 02/17/2015 Comp Metabolic Akf994 eG FR 74 ml/min/1.73m2 02/17 Comp Metabolic Cbx745 BUN 22 mg/dL 02/17/2015 Comp Metabolic Sjq229 B/ C Ratio 21.4 Ratio 02/17/2015 Comp Metabolic Umc997 CA LCIUM 9.5 mg/dL 02/17/2015 Comp Metabolic Gdo479 AL K PHOS 78 U/L 02/17/2015 Comp Metabolic Qjg543 T(SGOT) 18 U/L 02/17/2015 Comp Metabolic Fka365 AL T(SGPT) 32 U/L 02/17/2015 Comp Metabolic Efn056 BI LI T 0.5 mg/dL 02/17/2015 Comp Metabolic Fpt978 AL BUMIN 4.3 g/dL 02/17/2015 Comp Metabolic Qzh526 TP RO 6.7 g/dL 02/17/2015 Comp Metabolic Ejr513 GL OB 2.4 g/dL 02/17/2015 Comp Metabolic Gqa052 A/ G Ratio 1.8 Ratio 02/17/2015 Comp Metabolic Nfe680 Os mo 289 mOsmo 02/17/2015 Review of [...] accomodation 09/02/2018 None Full Exam - General 1994 [...] Procedure Codes Date THER/PROPH/DIAG INJ SC/IM CPT-4: 80808 09/02/2018 THER/PROPH/DIAG INJ SC/IM CPT-4: 85223 08/21/2018 THER/PROPH/DIAG INJ SC/IM CPT-4: 36999 08/08/2018 THER/PROPH/DIAG INJ SC/IM CPT-4: 16066 07/28/2018 THER/PROPH/DIAG INJ SC/IM CPT-4: 60426 07/16/2018 THER/PROPH/DIAG INJ SC/IM CPT-4: 06460 07/02/2018 PPPS, SUBSEQ VISIT CPT- 4: G0439 06/30/2018 THER/PROPH/DIAG INJ SC/IM CPT-4: 15207 06/24/2018 THER/PROPH/DIAG INJ SC/IM CPT-4: 25615 06/13/2018 ADMIN INFLUENZA VIRU S VAC CPT-4: G0008 06/06/2018 FLU VACC PRSV FREE I NC ANTIG CPT-4: 13830 06/06/2018 THER/PROPH/DIAG INJ SC/IM CPT-4: 07287 06/05/2018 THER/PROPH/DIAG INJ SC/IM CPT-4: 61285 05/30/2018 THER/PROPH/DIAG INJ SC/IM CPT-4: 64316 05/22/2018 THER/PROPH/DIAG INJ SC/IM CPT-4: 59673 05/12/2018 THER/PROPH/DIAG INJ SC/IM CPT-4: 94902 05/02/2018 THER/PROPH/DIAG INJ SC/IM CPT-4: 23478 04/24/2018 THER/PROPH/DIAG INJ SC/IM CPT-4: 94283 04/17/2018 KETOROLAC TROMETHAMI NE INJ CPT-4: J1885 03/07/2018 URINALYSIS NONAUTO W /O SCOPE CPT-4: 13027 03/07/2018 THER/PROPH/DIAG INJ SC/IM CPT-4: 19803 02/20/2018 TRIAMCINOLONE ACET I [place] NOS CPT-4: J3301 01/30/2018 THER/PROPH/DIAG INJ SC/IM CPT-4: 34615 01/17/2018 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 3-[address]: 555271927 CPT-4: G0436 04/25/2017 ADMIN INFLUENZA VIRU S VAC CPT-4: G0008 04/25/2017 ADMIN PNEUMOCOCCAL V ACCINE SNOMED CT: 14489864 CPT-4: G0009 04/25/2017 PNEUMOCOCCAL VACC [address]: 89084196 CPT-4: 71998 04/25/2017 FLU VACC PRSV FREE I NC ANTIG CPT-4: 54511 04/25/2017 ADMIN INFLUENZA VIRU S VAC CPT-4: G0008 05/22/2016 FLU VACC 4 TELLY 3 YRS PLUS IM Formatting Model/CDA Sections, Assigned to/Angela Clemons SNOMED CT: 68073513 CPT-4: 14053Bagomvr 05/22/2016 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 3-[address]: 590025206 CPT-4: G0436 11/25/2015 URINALYSIS NONAUTO W /O SCOPE CPT-4: 33868 05/09/2015 TRIAMCINOLONE ACET I [place] NOS CPT-4: J3301 04/12/2015 DESTRUCT PREMALG LESION CPT-4: 49325 03/07/2015 DESTRUCT PREMALG LES 2-14 CPT-4: 12751 03/07/2015 REMOVE IMPACTED EAR WAX UNI CPT-4: 25814 12/31/2014 THER/PROPH/DIAG INJ SC/IM CPT-4: 58938 12/23/2014 TRIAMCINOLONE ACET I [place] NOS CPT-4: J3301 12/23/2014 Vital Signs Date Vital 09/02/2018 Blood Pressure 1: 140/80 Code: 8480-6 BMI: 21.2 Code: 99228-2 Heart Rate 1: 68 bpm Height: 5'11" SpO2: 97% Weight: 152 lbs 06/30/2018 BMI: 21.8 Code: 60349-1 Height: 5'11" Weight: 156 lbs 06/06/2018 Blood Pressure 1: 128/76 Code: 8480-6 BMI: 22.0 Code: 31064-1 Heart Rate 1: 81 bpm Height: 5'11" SpO2: 92% Weight: 158 lbs 04/04/2018 Blood Pressure 1: 124/70 Code: 8480-6 BMI: 20.8 Code: 16271-9 Heart Rate 1: 65 bpm Height: 5'11" SpO2: 95% Weight: 149 lbs 03/07/2018 Blood Pressure 1: 148/70 Code: 8480-6 BMI: 21.2 Code: 10851-0 Heart Rate 1: 66 bpm Height: 5'11" SpO2: 94% Weight: 152 lbs 02/20/2018 Blood Pressure 1: 134/58 Code: 8480-6 BMI: 20.5 Code: 77469-6 Heart Rate 1: 61 bpm Height: 5'11" SpO2: 92% Weight: 147 lbs 01/30/2018 Blood Pressure 1: 158/68 Code: 8480-6 BMI: 21.5 Code: 35463-0 Heart Rate 1: 71 bpm Height: 5'11" SpO2: 92% Weight: 154 lbs 01/14/2018 Blood Pressure 1: 156/70 Code: 8480-6 Height: Weight: 01/13/2018 Blood Pressure 1: 148/62 Code: 8480-6 BMI: 20.9 Code: 75079-2 Heart Rate 1: 54 bpm Height: 5'11" SpO2: 97% Weight: 150 lbs 11/19/2017 Blood Pressure 1: 150/60 Code: 8480-6 BMI: 21.8 Code: 72379-8 Heart Rate 1: 63 bpm Height: 5'11" SpO2: 98% Weight: 156 lbs 10/02/2017 Blood Pressure 1: 168/60 Code: 8480-6 BMI: 21.9 Code: 33339-4 Heart Rate 1: 52 bpm Height: 5'11" SpO2: 97% Weight: 157 lbs 07/23/2017 Blood Pressure 1: 170/70 Code: 8480-6 BMI: 21.8 Code: 87461-9 Heart Rate 1: 65 bpm Height: 5'11" SpO2: 98% Weight: 156 lbs 04/25/2017 Blood Pressure 1: 138/60 Code: 8480-6 BMI: 21.6 Code: 63998-2 Heart Rate 1: 55 bpm Height: 5'11" SpO2: 93% Weight: 155 lbs 02/19/2017 Blood Pressure 1: 138/64 Code: 8480-6 BMI: 21.3 Code: 20462-0 Heart Rate 1: 52 bpm Height: 5'11" SpO2: 96% Weight: 152 lbs 8 oz 01/21/2017 Blood Pressure 1: 160/68 Code: 8480-6 BMI: 21.3 Code: 78860-2 Heart Rate 1: 62 bpm Height: 5'11" SpO2: 96% Weight: 153 lbs 12/20/2016 Blood Pressure 1: 124/66 Code: 8480-6 BMI: 21.5 Code: 69137-3 Height: 5'11" Weight: 154 lbs 08/23/2016 Blood Pressure 1: 142/52 Code: 8480-6 BMI: 21.2 Code: 34527-4 Heart Rate 1: 54 bpm Height: 5'11" SpO2: 96% Weight: 152 lbs 05/22/2016 Blood Pressure 1: 130/76 Code: 8480-6 BMI: 21.5 Code: 69946-5 Heart Rate 1: 78 bpm Height: 5'11" SpO2: 92% Weight: 154 lbs 02/24/2016 Blood Pressure 1: 128/80 Code: 8480-6 BMI: 21.2 Code: 57608-5 Heart Rate 1: 74 bpm Height: 5'11" SpO2: 96% Weight: 152 lbs 01/27/2016 Blood Pressure 1: 144/60 Code: 8480-6 BMI: 21.2 Code: 03676-8 Heart Rate 1: 74 bpm Height: 5'11" SpO2: 97% Weight: 152 lbs 11/25/2015 Blood Pressure 1: 110/52 Code: 8480-6 BMI: 21.9 Code: 31106-7 Heart Rate 1: 65 bpm Height: 5'11" SpO2: 92% Weight: 157 lbs 07/28/2015 Blood Pressure 1: 138/62 Code: 8480-6 BMI: 21.8 Code: 61607-2 Heart Rate 1: 63 bpm Height: 5'11" SpO2: 91% Weight: 156 lbs 05/26/2015 Blood Pressure 1: 120/58 Code: 8480-6 BMI: 21.5 Code: 13658-2 Heart Rate 1: 99 bpm Height: 5'11" SpO2: 96% Weight: 154 lbs 05/06/2015 Blood Pressure 1: 120/58 Code: 8480-6 BMI: 21.2 Code: 58110-1 Heart Rate 1: 66 bpm Height: 5'11" SpO2: 96% Weight: 152 lbs 04/25/2015 Blood Pressure 1: 136/62 Code: 8480-6 BMI: 21.2 Code: 95401-7 Heart Rate 1: 63 bpm Height: 5'11" SpO2: 97% Weight: 152 lbs 04/12/2015 Blood Pressure 1: 160/58 Code: 8480-6 BMI: 21.6 Code: 23053-7 Heart Rate 1: 62 bpm Height: 5'11" Weight: 155 lbs 03/24/2015 Blood Pressure 1: 138/68 Code: 8480-6 BMI: 22.0 Code: 27177-4 Heart Rate 1: 65 bpm Height: 5'11" SpO2: 96% Weight: 158 lbs 03/07/2015 Blood Pressure 1: 116/52 Code: 8480-6 BMI: 22.2 Code: 49324-8 Heart Rate 1: 64 bpm Height: 5'11" SpO2: 97% Weight: 159 lbs 02/17/2015 Blood Pressure 1: 148/58 Code: 8480-6 BMI: 21.3 Code: 81772-9 Heart Rate 1: 63 bpm Height: 5'11" SpO2: 97% Weight: 153 lbs 12/31/2014 Blood Pressure 1: 100/60 Code: 8480-6 BMI: 21.8 Code: 92407-9 Heart Rate 1: 68 bpm Height: 5'11" Weight: 156 lbs 12/23/2014 Blood Pressure 1: 148/64 Code: 8480-6 BMI: 21.9 Code: 34052-2 Heart Rate 1: 64 bpm Height: 5'11" [...] 11/25/2015 None cough Location in the [facility] 11/25/2015 None cough Quality acute 11/25/2015 None [...] Encounters Encounter Performer Loca tion Codes Date ([id number]) 62721 EST. 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 P ATIENT, LEVEL IV Diagnosis: Cellulitis of face[ICD10: L03.211] Diagnosis: Type 2 diabetes mellitus without complications[ICD10: E11.9] Diagnosis: Essential (primary) hypertension[ICD10: I10] Diagnosis: Encounter for immunization[ICD10: Z23] Karmen Ash MD, [facility] CPT-4: 14991 06/06/2018 ([id number]) 50534 EST. 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 P ATIENT, LEVEL III Diagnosis: Low back pain[ICD10: M54.5] Diagnosis: Dysuria[ICD10: R30.0] Karmen Ash MD, [facility] CPT-4: 61822 03/07/2018 ([id number]) 09819 EST. 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 P ATIENT, LEVEL III Diagnosis: Chronic obstructive pulmonary disease with (acute) exacerbation[ICD10: J44.1] Karmen Ash MD, [facility] CPT-4: 59539 01/30/2018 49216 EST. PATIENT, LEVEL II Diagnosis: Insect bite (nonvenomous), left lower leg, initial encounter[ICD10: S80.862A] Karmen Ash MD, [facility] CPT-4: 62754 01/14/2018 ([id number]) 08726 EST. P ATIENT, LEVEL IV Diagnosis: Type 2 diabetes mellitus with hyperglycemia[ICD10: E11.65] Diagnosis: Chronic obstructive pulmonary disease, unspecified[ICD10: J44.9] Diagnosis: Other fatigue[ICD10: R53.83] Karmen Ash MD, [facility] CPT- 4: 87902 01/13/2018 ([id number]) 89738 EST. P ATIENT, LEVEL IV Diagnosis: Type 2 diabetes mellitus with hyperglycemia[ICD10: E11.65] Diagnosis: Vitamin D deficiency, unspecified[ICD10: E55.9] Diagnosis: Essential (primary) hypertension[ICD10: I10] Diagnosis: Abdominal distension (gaseous)[ICD10: R14.0] Diagnosis: Drug induced constipation[ICD10: K59.03] Karmen Ash MD, [facility] CPT-4: 50011 11/19/2017 01060 EST. PATIENT, LEVEL IV Diagnosis: Low back pain[ICD10: M54.5] Diagnosis: Chronic obstructive pulmonary disease, unspecified[ICD10: J44.9] Brunilda Ash MD, [facility] CPT-4: 78857 10/02/2017 ([id number]) 19414 EST. P ATIENT, LEVEL IV Diagnosis: Essential (primary) hypertension[ICD10: I10] Diagnosis: Type 2 diabetes mellitus with hyperglycemia[ICD10: E11.65] Diagnosis: Vitamin D deficiency, unspecified[ICD10: E55.9] Diagnosis: Mixed hyperlipidemia[ICD10: E78.2] Karmen Ash MD, [facility] CPT-4: 17190 07/23/2017 ([id number]) 31317 EST. P ATIENT, LEVEL IV Diagnosis: Essential (primary) hypertension[ICD10: I10] Diagnosis: Type 2 diabetes mellitus with hyperglycemia[ICD10: E11.65] Diagnosis: Chronic obstructive pulmonary disease, unspecified[ICD10: J44.9] Diagnosis: Nicotine dependence, unspecified, uncomplicated[ICD10: F17.200] Diagnosis: Encounter for immunization[ICD10: Z23] Karmen Ash MD, [facility] CPT-4: 13826 04/25/2017 ([id number]) 12620 EST. P ATIENT, LEVEL IV Diagnosis: Type 2 diabetes mellitus with hyperglycemia[ICD10: E11.65] Diagnosis: Essential (primary) hypertension[ICD10: I10] Diagnosis: Anemia, unspecified[ICD10: D64.9] Karmen Ash MD, [facility] CPT- 4: 92318 02/19/2017 ([id number]) 35094 EST. P ATIENT, LEVEL IV Diagnosis: Slow transit constipation[ICD10: K59.01] Diagnosis: Gastro-esophageal reflux disease without esophagitis[ICD10: K21.9] Diagnosis: Essential (primary) hypertension[ICD10: I10] Karmen Ash MD, [facility] CPT-4: 97225 01/21/2017 ([id number]) 66280 EST. P ATIENT, LEVEL IV Diagnosis: Type 2 diabetes mellitus with hyperglycemia[ICD10: E11.65] Diagnosis: Vitamin D deficiency, unspecified[ICD10: E55.9] Diagnosis: Essential (primary) hypertension[ICD10: I10] Diagnosis: Chronic obstructive pulmonary disease, unspecified[ICD10: J44.9] Karmen Ash MD, [facility] CPT-4: 36546 12/20/2016 ([id number]) 18741 EST. P ATIENT, LEVEL IV Diagnosis: Type 2 diabetes mellitus with hyperglycemia[ICD10: E11.65] Diagnosis: Essential (primary) hypertension[ICD10: I10] Diagnosis: Mixed hyperlipidemia[ICD10: E78.2] Diagnosis: Vitamin D deficiency, unspecified[ICD10: E55.9] Karmen Ash MD, [facility] CPT-4: 68191 08/23/2016 ([id number]) 85420 EST. P ATIENT, LEVEL IV Diagnosis: Type 2 diabetes mellitus with hyperglycemia[ICD10: E11.65] Diagnosis: Essential (primary) hypertension[ICD10: I10] Diagnosis: Chronic obstructive pulmonary disease, unspecified[ICD10: J44.9] Karmen Ash MD, [facility] CPT-4: 35676 05/22/2016 ([id number]) 01833 EST. P ATIENT, LEVEL III Diagnosis: Dysuria[ICD10: R30.0] Diagnosis: Essential (primary) hypertension[ICD10: I10] Karmen Ash MD, [facility] CPT-4: 30585 02/24/2016 ([id number]) 98884 EST. P ATIENT, LEVEL IV Diagnosis: Gastro-esophageal reflux disease without esophagitis[ICD10: K21.9] Diagnosis: Slow transit constipation[ICD10: K59.01] Diagnosis: Type 2 diabetes mellitus with hyperglycemia[ICD10: E11.65] Karmen Ash MD, [facility] CPT-4: 76840 01/27/2016 ([id number]) 38970 EST. P ATIENT, LEVEL IV Diagnosis: Essential (primary) hypertension[ICD10: I10] Diagnosis: Type 2 diabetes mellitus with hyperglycemia[ICD10: E11.65] Diagnosis: Vitamin D deficiency, unspecified[ICD10: E55.9] Diagnosis: Chronic obstructive pulmonary disease, unspecified[ICD10: J44.9] Diagnosis: Mixed hyperlipidemia[ICD10: E78.2] Diagnosis: Tobacco use[ICD10: Z72.0] Karmen Ash MD, [facility] CPT- 4: 25239 11/25/2015 ([id number]) 62849 EST. P ATIENT, LEVEL IV Diagnosis: Type 2 diabetes mellitus with hyperglycemia[ICD10: E11.65] Diagnosis: Essential (primary) hypertension[ICD10: I10] Diagnosis: Vitamin D deficiency, unspecified[ICD10: E55.9] Karmen Ash MD, [facility] CPT-4: 29594 07/28/2015 ([id number]) 32271 EST. P ATIENT, LEVEL III Diagnosis: Type 2 diabetes mellitus with hyperglycemia[ICD10: E11.65] Diagnosis: Essential (primary) hypertension[ICD10: I10] Violeta Ash MD, [facility] CPT-4: 87603 05/26/2015 ([id number]) 19406 EST. P ATIENT, LEVEL III Diagnosis: DIABETES TYPE II[ICD9: 250.00] Diagnosis: COPD (chronic obstructive pulmonary disease)[ICD9: 496] Diagnosis: ESSENTIAL HYPERTENSION[ICD9: 401.9] Diagnosis: Cough[ICD9: 786.2] Violeta Ash MD, [facility] CPT-4: 51682 05/06/2015 ([id number]) 74058 EST. P ATIENT, LEVEL III Diagnosis: COPD (chronic obstructive pulmonary disease)[ICD9: 496] Diagnosis: DIABETES TYPE II[ICD9: 250.00] Diagnosis: Muscle ache[ICD9: 729.1] Karmen Ash MD, [facility] CPT- 4: 01415 04/25/2015 ([id number]) 47830 EST. P ATIENT, LEVEL III Diagnosis: ACTINIC KERATOSIS[ICD9: 702.0] Diagnosis: COPD (chronic obstructive pulmonary disease)[ICD9: 496] Diagnosis: DIABETES TYPE II[ICD9: 250.00] Diagnosis: ACUTE URI[ICD9: 465.9] Violeta Ash MD, [facility] CPT-4: 14570 04/12/2015 ([id number]) 96920 EST. P ATIENT, LEVEL III Diagnosis: DIABETES TYPE II[ICD9: 250.00] Violeta Ash MD, [facility] CPT-4: 32342 03/24/2015 ([id number]) 37387 EST. P ATIENT, LEVEL IV Diagnosis: DIABETES TYPE II[ICD9: 250.00] Diagnosis: Hypoglycemia[ICD9: 251.2] Diagnosis: Skin texture changes[ICD9: 782.8] Violeta Ash MD, [facility] CPT-4: 81366 03/07/2015 ([id number]) 81569 EST. P ATIENT, LEVEL IV Diagnosis: COPD (chronic obstructive pulmonary disease)[ICD9: 496] Diagnosis: Fatigue[ICD9: 780.79] Diagnosis: Insulin dependent diabetes mellitus[ICD9: 250.00] Diagnosis: Unsteady gait[ICD9: 781.2] Maame Ash MD, [facility] CPT-4: 90018 02/17/2015 ([id number]) 58726 EST. P ATIENT, LEVEL IV Diagnosis: BPPV (benign paroxysmal positional vertigo)[ICD9: 386.11] Diagnosis: Impacted cerumen[ICD9: 380.4] Diagnosis: ESSENTIAL HYPERTENSION[ICD9: 401.9] Diagnosis: Insulin dependent diabetes mellitus[ICD9: 250.00] Karmen Ash MD, [facility] CPT-4: 20707 12/23/2014 ([id number]) [facility] LEVEL 4 Diagnosis: Insulin dependent diabetes mellitus[ICD9: 250.00] Diagnosis: BPPV (benign paroxysmal positional vertigo)[ICD9: 386.11] Diagnosis: COPD (chronic obstructive pulmonary disease)[ICD9: 496] Diagnosis: Tobacco abuse[ICD9: 305.1] Diagnosis: Osteoarthritis[ICD9: 715.90] [facility] CPT- 4: 67243 12/09/2014 Plan of Care Planned Activity Notes C odes Status Date Visit Plan: Hypertension - well izzy traore [...] to medications. 09/02/2018 [phone] [phone] (15 min) Moderate 09/02/2018 Patient Education: [...] surrogate. 06/30/2018 App[facility]ment[phone] [phone] [facility] - Annual Wellness Visit [...] pain. 06/06/2018 Appointment: Karmen Espinal WPtel: [phone] [phone] [place] (15 min) Moderate 06/06/2018 Patient Education: [...] months 04/04/2018 App[facility]ment: [phone] [phone] (15 min) Moderate 04/04/2018 Patient Education: Patient Medication Summary Completed 04/04/2018 Care Plan: Cbc With Differential Pending 04/04/2018 Care Plan: Testosterone repeat in 2 months Pending 04/04/2018 Appointment: Karmen Espinal WPtel: [phone] [phone] [place] (15 min) Moderate 03/25/2018 Visit Plan: Low back pain -history of kidney stone-UA negative today -increase fluids and call if pain does not resolve or if any worse. 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 01/30/2018 Appointment: Karmen Espinal WPtel: [phone] (15 min) Moderate 01/30/2018 Patient Education: Patient Medication Summary Completed 01/30/2018 Appointment: Karmen Espinal WPtel: [phone] (15 min) Moderate 01/28/2018 Appointment: Injection 01/17/2018 Patient Education: Patient Medication Summary Completed 01/17/2018 Visit Plan: Cellulitis - start oral antibiotics as directed, return to clinic as previously directed, call for acute change in symptoms, worsening redness, warmth, discharge. 01/14/2018 Appointment: Karmen Espinal WPtel: [phone] (10 min) Simple 01/14/2018 Patient Education: Patient [...] controlled. 01/13/2018 Appointment: Karmen Espinal WPtel: [phone] (15 min) Moderate 01/13/2018 Patient Education: Patient Medication Summary Completed 01/13/2018 Referral: Hugo Villatoro [facility]:+[phone] [place] [address] Patient's informed. Referral info ned monroy. Completed [...] change in blood pressure readings at home. Abzavgly-wdtdzw-bsgsn to see Dr Villatoro Constipation-start linzess daily 11/19/2017 Appointment: Karmen Espinal WPtel: [phone] (30 min) Complex 11/19/2017 Patient Education: Patient Medication Summary Completed 11/19/2017 Care Plan: Referral Order bloating, nausea SNOMED-CT : 170701400 Pending 11/19/2017 Visit Plan: Low back pain- [...] acute changes. 10/02/2017 Appointment: Brunilda Maravilla WPtel: [address] [place], [place] [phone] (15 min) Moderate 10/02/2017 Patient Education: Patient [...] controlled. 07/23/2017 Appointment: [facility] [phone] [phone] (30 min) Complex 07/23/2017 Patient Education: [...] history 04/25/2017 Appointment: [facility] [phone] [phone] (30 min) Complex 04/25/2017 Patient Education: [...] readings are starting to become less controlled. Wohlxn-bmyjpxs-ewtbt labs 02/19/2017 Appointment: Karmen Espinal WPtel: [phone] (30 min) Complex 02/19/2017 Patient Education: Patient [...] month 01/21/2017 Appointment: [facility] [phone] [phone] (30 min) Complex 01/21/2017 Patient Education: Patient Medication Summary Completed 01/21/2017 Patient Education: Smoking and Tobacco Addiction Completed 01/21/2017 Patient Education: Hypertension Completed 01/21/2017 Care Plan: Referral Order SNOMED-CT : 498964408 Pending 01/21/2017 Visit Plan: Diabetes Mellitus - [...] changes. 12/20/2016 Appointment: Karmen Espinal WPtel: [phone] (30 min) Complex 12/20/2016 Patient Education: Patient Medication Summary Completed 12/20/2016 Patient Education: Smoking and Tobacco Addiction Completed 12/20/2016 Patient Education: Hypertension Completed 12/20/2016 Appointment: Karmen Espinal WPtel: [phone] [phone] (30 min) Complex 09/06/2016 Visit [...] level 08/23/2016 Appointment: Karmen Espinal WPtel: [phone] (30 min) Complex 08/23/2016 Patient Education: [...] changes. 05/22/2016 Appointment: Karmen Espinal WPtel: [phone] (30 min) Complex 05/22/2016 Patient Education: Patient Medication Summary Completed 05/22/2016 Patient Education: Smoking and Tobacco Addiction Completed 05/22/2016 Care Plan: Cbc With Differential Ordered 05/22/2016 Care Plan: %Hba1C LOIN C : 23247-7 Ordered 05/22/2016 Care Plan: Tsh Ordered 05/22/2016 [...] update 02/24/2016 Appointment: [facility] [phone] [phone] (30 min) Complex 02/24/2016 Patient Education: [...] this regimen. 01/27/2016 Appointment: Kamren [facility] [phone] [phone] (30 min) Complex 01/27/2016 Patient Education: [...] use medication to assist cessation. 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 Hvmiatcp-zcjsfgsi-IDQO SIMVASTATIN X 2 WEEKS AND CALL WITH [...] Care Plan: COMPLETE CBC AUTOMATED LOINC : 58166-2 Ordered 03/24/2015 Visit Plan: Diabetes Mellitus - [...] for removal. 03/07/2015 Appointment: Violeta Ash WPtel: [address] [place], [place] [phone] (15 min) Moderate 03/07/2015 Patient Education: Patient [...] Care Plan: COMPLETE CBC AUTOMATED LOINC : 06952-8 Ordered 12/23/2014 Visit Plan: BPPV - Benign [...] next appt 12/09/2014 Appointment: Karmen Espinal WPtel: [phone] [place] ([place]) New Patient 12/09/2014 Patient Education: Patient Medication Summary Completed 12/09/2014 Patient Education: .Amazing charts Parox ysmal positional vertigo Completed 12/09/2014 Patient Education: Smoking and Tobacco Addiction Completed 12/09/2014 Referral: Hugo Villatoro HPtel:[phone] [address] [place] Referral Appointment Requested Referral: Luis Donohue [...] readings are starting to become less controlled. Hdxqlm-eyrvowk-utlog labs Symbicort 2 puffs tw ice daily . [...] referral to Dr. Donohue for removal. . Hypertension - wel l controlled - [...] assure normal liver response to medications. . Cerumen Impaction - The impacted cerumen [...] not resolve or if any worse. . COPD -recent pneum onia-symptoms have improved [...] readings are starting to become less controlled. Refer to Dr Irving marino or evaluation [...] change in blood pressure readings at home. Xmvsdjhe-xonvro-lpybt to see Dr Villatoro Constipation-start linzess daily CALL IF THE KENALOG SHOT DOES NOT [...] lesion today in the office-wound instructions provided KENALOG ANORO 1 INHALATION DAILY . COPD [...] as discussed-follow up in 1 month . Diabetes Mellitus - I have recommended [...] POTENTIAL SIDE EFFECTS AND WORSENING OF SYMPTOMS. Sqtshtyq-wtajtclm-PSXQ SIMVASTATIN X 2 WEEKS AND CALL WITH UPDATE . Diabetes Mellitus - controlled - per [...]
--- OUTSIDE RECORDS SUMMARY | 2020-03-29 09:16 | XMS REPORT | CCD ---
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 Name Role Phone PP Unavailable CCM Unavailable Summary Purpose Interface Exchange Insurance Providers Payer name Policy type / Coverage type Covered libertarian ID Effective Begin Date Effective End Date WPS Medicare Part B Medicare Part B [id number] Unknown Unknown [employer] Medicar e Part B [id number] Unknown Unkn own Family history Father Diagnosis Age At Onset Cancer Unknown Mother Diagnosis Age At Onset Cancer Unknown Social History Social History Element Codes Description Effective Dates Marital status Unknown M arried 12/09/2014 Employment Unknown Retir ed 12/09/[address]: 51067797 Currently smokes tobacco 12/09/2014 Number of years using tobacco Unknown > 50 12/09/2014 Number of cigarettes/day Unknown 30 (Pack and a half) 12/09/[address]: 004428761 Never drinks alcohol 12/09/2014 Allergies, Adverse Reactions, [...] cypiona te 200 mg/mL intramuscular oil RxNorm: 4761752 1/2 Milliliter(s) IM 09/02/2018 09/02/2018 Inactive hydrocodone 5 mg-linh taminophen 325 mg tablet RxNorm: 237603 1 Tablet(s) PO Q6-8H as needed 08/21/2018 09/14/2018 Active testosterone enantha te 200 mg/mL intramuscular oil RxNorm: 314836 Milliliter(s) IM 08/21/2018 08/21/2018 In active testosterone cypiona te 200 mg/mL intramuscular oil RxNorm: 5739152 Milliliter(s) IM 08/08/2018 08/08/2018 In active testosterone cypiona te 200 mg/mL intramuscular oil RxNorm: 4180663 1/2 Milliliter(s) IM 07/28/2018 07/28/2018 Inactive hydrocodone 5 mg-linh taminophen 325 mg tablet RxNorm: 691441 1 Tablet(s) PO Q6-8H as needed 07/21/2018 08/14/2018 Inactive testosterone cypiona te 200 mg/mL intramuscular oil RxNorm: 965578 Milliliter(s) IM 07/16/2018 07/16/2018 In active testosterone cypiona te 200 mg/mL intramuscular oil RxNorm: 452544 Milliliter(s) IM 07/02/2018 07/02/2018 In active Xanax 0.5 mg tablet RxNorm: 714972 1 Tablet(s) PO TID 06/27/2018 08/25/2018 Inactive testosterone cypiona te 200 mg/mL intramuscular oil RxNorm: 750476 Milliliter(s) IM 06/24/2018 06/24/2018 In active hydrocodone 5 mg-linh taminophen 325 mg tablet RxNorm: 321692 1 Tablet(s) PO Q6-8H as needed 06/23/2018 07/17/2018 Inactive testosterone cypiona te 200 mg/mL intramuscular oil RxNorm: 309556 Milliliter(s) IM 06/13/2018 06/13/2018 In active testosterone cypiona te 200 mg/mL intramuscular oil RxNorm: 188012 Milliliter(s) IM 06/05/2018 06/05/2018 In active testosterone cypiona te 200 mg/mL intramuscular oil RxNorm: 216214 1/2 Milliliter(s) IM weekly 05/30/2018 09/26/2018 Active testosterone cypiona te 200 mg/mL intramuscular oil RxNorm: 308001 Milliliter(s) IM 05/30/2018 05/30/2018 In active testosterone cypiona te 200 mg/mL intramuscular oil RxNorm: 761726 Milliliter(s) IM 05/22/2018 05/22/2018 In active hydrocodone 5 mg-linh taminophen 325 mg tablet RxNorm: 816010 1 Tablet(s) PO Q6-8H as needed 05/20/2018 06/13/2018 Inactive testosterone cypiona te 200 mg/mL intramuscular oil RxNorm: 647111 1/2 Milliliter(s) IM 05/12/2018 05/12/2018 Inactive testosterone cypiona te 200 mg/mL intramuscular oil RxNorm: 363184 Milliliter(s) IM 05/02/2018 05/02/2018 In active testosterone cypiona te 200 mg/mL intramuscular oil RxNorm: 910547 1/2 Milliliter(s) IM weekly 04/24/2018 05/29/2018 Inactive testosterone cypiona te 200 mg/mL intramuscular oil RxNorm: 197718 0.5 Milliliter(s) IM 04/24/2018 04/24/2018 Inactive hydrocodone 5 mg-linh taminophen 325 mg tablet RxNorm: 648150 1 Tablet(s) PO Q6-8H as needed 04/22/2018 05/16/2018 Inactive testosterone cypiona te 200 mg/mL intramuscular oil RxNorm: 784676 1/2 Milliliter(s) IM 04/17/2018 04/17/2018 Inactive testosterone cypiona te 200 mg/mL intramuscular oil RxNorm: 518410 1/2 Milliliter(s) IM weekly 04/16/2018 04/23/2018 Inactive Jardiance 10 mg tablet RxNorm: 8032425 1 Tablet(s) PO daily 04/04/2018 12/29/2018 Active Protonix 40 mg table t,delayed release RxNorm: 797728 1 Tablet(s) PO daily TAKE 1 TABLET BY MOUTH DAILY 04/04/2018 03/29/2019 Active - Ref: [id number] testosterone cypiona te 200 mg/mL intramuscular oil RxNorm: 172115 1 Milliliter(s) IM monthly 04/04/2018 04/15/2018 Inactive hydrocodone 5 mg-linh taminophen 325 mg tablet RxNorm: 164487 1 Tablet(s) PO Q6-8H as needed 03/19/2018 04/12/2018 Inactive Flomax 0.4 mg capsule RxNorm: 278287 1 Capsule(s) PO daily 03/10/2018 03/04/2019 Active Urecholine 25 mg tablet RxNorm: 780222 1 Tablet(s) PO BID 03/10/2018 07/07/2018 Inactive ketorolac 60 mg/2 mL intramuscular solution RxNorm: 3572086 Milliliter(s) IM 03/07/2018 03/07/2018 In active metformin 500 mg tablet RxNorm: 384364 Tablet(s) TAKE 1 TABLET BY MOUTH DAILY 02/20/2018 02/14/2019 Ac tive 1 q am and 1/2 tab q pm hydrocodone 5 mg-linh taminophen 325 mg tablet RxNorm: 832178 1 Tablet(s) PO Q6-8H as needed 02/20/2018 03/16/2018 Inactive Kenalog 40 mg/mL bartolome pension for injection RxNorm: 0522402 1.5 Milliliter(s) In j 01/30/2018 01/30/2018 In active hydrocodone 5 mg-linh taminophen 325 mg tablet RxNorm: 307770 1 Tablet(s) PO Q6-8H as needed 01/23/2018 02/16/2018 Inactive Urecholine 25 mg tablet RxNorm: 447667 1 Tablet(s) PO BID 01/22/2018 03/09/2018 Inactive Flomax 0.4 mg capsule RxNorm: 888588 1 Capsule(s) PO daily 01/22/2018 03/09/2018 Inactive Flomax 0.4 mg capsule RxNorm: 717558 1 Capsule(s) PO daily 01/22/2018 01/21/2018 Inactive Urecholine 25 mg tablet RxNorm: 592343 1 Tablet(s) PO BID 01/22/2018 01/21/2018 Inactive testosterone cypiona te 200 mg/mL intramuscular oil RxNorm: 479501 Milliliter(s) IM 01/17/2018 01/17/2018 In active testosterone cypiona te 200 mg/mL intramuscular oil RxNorm: 970385 1 Milliliter(s) IM monthly 01/17/2018 04/03/2018 Inactive lisinopril 10 mg tablet RxNorm: 588857 TAKE 1 TABLET BY MOUTH TWO TIMES DAILY 01/14/2018 01/08/2019 Ac tive - First Attempt Ref: [id number] doxycycline hyclate 100 mg tablet RxNorm: 923905 1 Tablet(s) PO BID 01/14/2018 01/23/2018 Inactive Xanax 0.5 mg tablet RxNorm: 346108 1 Tablet(s) PO TID 01/08/2018 04/06/2018 Inactive nystatin 100,000 uni t/mL oral suspension RxNorm: 594631 4 Milliliter(s) PO QI D Swish and swallow 01/08/2018 01/07/2018 Inactive nystatin 100,000 uni t/mL oral suspension RxNorm: 452955 4 Milliliter(s) PO QI D Swish and swallow 01/08/2018 01/12/2018 Inactive simvastatin 40 mg ta blet RxNorm: 243117 TAKE 1 TABLET BY MOUT H DAILY AT BEDTIME 12/30/2017 12/24/2018 Ac tive - First Attempt Ref: [id number] metformin 500 mg tablet RxNorm: 123914 TAKE 1 TABLET BY MOUTH DAILY 12/30/2017 02/19/2018 Inactive - First Attempt Ref: [id number] hydrocodone 5 mg-linh taminophen 325 mg tablet RxNorm: 347666 1 Tablet(s) PO Q6-8H as needed 12/25/2017 01/18/2018 Inactive Protonix 40 mg table t,delayed release RxNorm: 721540 Tablet(s) TAKE 1 TABL ET BY MOUTH DAILY 11/20/2017 04/03/2018 Inactive - Ref: [id number] Linzess 72 mcg capsule RxNorm: 0542184 1 Capsule(s) PO daily 11/19/2017 No Stop Date Active hydrocodone 5 mg-linh taminophen 325 mg tablet RxNorm: 755169 1 Tablet(s) PO Q6-8H as needed 11/19/2017 12/13/2017 Inactive hydrocodone 5 mg-linh taminophen 325 mg tablet RxNorm: 463187 1 Tablet(s) PO Q6-8H as needed 10/28/2017 11/18/2017 Inactive Xanax 0.5 mg tablet RxNorm: 093114 1 Tablet(s) PO TID 10/25/2017 12/22/2017 Inactive Xanax 0.5 mg tablet RxNorm: 107186 TAKE ONE TABLET BY MOUTH THREE TIMES A D AY 10/24/2017 12/22/2017 In active hydrocodone 5 mg-linh taminophen 325 mg tablet RxNorm: 688079 1 Tablet(s) PO Q6-8H as needed 09/30/2017 10/24/2017 Inactive Protonix 40 mg table t,delayed release RxNorm: 622695 TAKE 1 TABLET BY MOUT H DAILY 09/16/2017 11/19/2017 In active - Ref: [id number] Yovana Perkins 300 unit/mL (1.5 mL) subcutaneous insulin pen RxNorm: 6437600 35 Unit(s) SQ QHS 08/30/2017 No Stop Date Active dosage increase hydrocodone 5 mg-linh taminophen 325 mg tablet RxNorm: 782749 1 Tablet(s) PO Q6-8H as needed 08/28/2017 09/29/2017 Inactive hydrocodone 5 mg-linh taminophen 325 mg tablet RxNorm: 806781 1 Tablet(s) PO Q6-8H as needed 07/23/2017 08/24/2017 Inactive lisinopril 10 mg tablet RxNorm: 571906 1 Tablet(s) PO BID Take 1 tablet by mout h daily 07/23/2017 01/13/2018 Inactive hydrocodone 5 mg-linh taminophen 325 mg tablet RxNorm: 114291 1 Tablet(s) PO Q6-8H as needed 06/27/2017 07/22/2017 Inactive Xanax 0.5 mg tablet RxNorm: 362569 1 Tablet(s) PO TID 06/18/2017 10/25/2017 Inactive hydrocodone 5 mg-linh taminophen 325 mg tablet RxNorm: 375283 1 Tablet(s) PO Q6-8H as needed 05/27/2017 06/26/2017 Inactive Levaquin 500 mg tablet RxNorm: 330051 1 Tablet(s) PO daily 05/24/2017 05/23/2017 Inactive Levaquin 500 mg tablet RxNorm: 854634 1 Tablet(s) PO daily 05/24/2017 05/30/2017 Inactive Protonix 40 mg table t,delayed release RxNorm: 040580 Take 1 tablet by mout h daily 04/29/2017 09/15/2017 In active - Ref: [id number] hydrocodone 5 mg-linh taminophen 325 mg tablet RxNorm: 978991 1 Tablet(s) PO Q6-8H as needed 04/25/2017 05/26/2017 Inactive metformin 500 mg tablet RxNorm: 716328 Take 1 tablet by mouth daily 04/08/2017 12/29/2017 Inactive - First Attempt Ref: [id number] hydrocodone 5 mg-linh taminophen 325 mg tablet RxNorm: 303842 1 Tablet(s) PO Q6-8H as needed 03/27/2017 04/24/2017 Inactive hydrocodone 5 mg-linh taminophen 325 mg tablet RxNorm: 036928 1 Tablet(s) PO Q6-8H as needed 02/25/2017 03/26/2017 Inactive Protonix 40 mg table t,delayed release RxNorm: 363207 Tablet(s) Take 1 tabl et by mouth BID 02/25/2017 04/28/2017 Inactive Protonix 40 mg table t,delayed release RxNorm: 199734 Tablet(s) Take 1 tabl et by mouth BID 02/19/2017 02/18/2017 Inactive Protonix 40 mg table t,delayed release RxNorm: 138739 Tablet(s) Take 1 tabl et by mouth BID 02/19/2017 02/24/2017 Inactive lisinopril 10 mg tablet RxNorm: 943033 Take 1 tablet by mouth daily 01/29/2017 07/22/2017 Inactive - First Attempt Ref: [id number] hydrocodone 5 mg-linh taminophen 325 mg tablet RxNorm: 643835 1 Tablet(s) PO Q6-8H as needed 01/25/2017 02/24/2017 Inactive simvastatin 40 mg ta blet RxNorm: 743907 Tablet(s) Take 1 tabl et by mouth daily at bedtime 01/03/2017 12/28/2017 Inactive lisinopril 10 mg tablet RxNorm: 993585 Tablet(s) Take 1 tablet by mouth daily 01/03/2017 01/28/2017 In active Protonix 40 mg table t,delayed release RxNorm: 855895 Tablet(s) Take 1 tabl et by mouth daily 12/28/2016 02/18/2017 Inactive hydrocodone 5 mg-linh taminophen 325 mg tablet RxNorm: 599651 1 Tablet(s) PO Q6-8H as needed 12/26/2016 01/24/2017 Inactive Xanax 0.5 mg tablet RxNorm: 910389 1 Tablet(s) PO TID 12/12/2016 03/11/2017 Inactive simvastatin 40 mg ta blet RxNorm: 303015 Tablet(s) Take 1 tabl et by mouth daily at bedtime 11/30/2016 01/02/2017 Inactive simvastatin 40 mg ta blet RxNorm: 592822 Take 1 tablet by mout h daily at bedtime 11/29/2016 11/29/2016 In active - First Attempt Ref: [id number] Protonix 40 mg table t,delayed release RxNorm: 328987 Take 1 tablet by mout h daily 11/27/2016 12/27/2016 In active - First Attempt Ref: [id number] hydrocodone 5 mg-linh taminophen 325 mg tablet RxNorm: 256841 1 Tablet(s) PO Q6-8H as needed 11/26/2016 12/25/2016 Inactive hydrocodone 5 mg-linh taminophen 325 mg tablet RxNorm: 996221 1 Tablet(s) PO Q8 as needed 10/24/2016 11/25/2016 Inactive Xanax 0.5 mg tablet RxNorm: 803661 1 Tablet(s) PO TID 10/09/2016 12/25/2016 Inactive hydrocodone 5 mg-linh taminophen 325 mg tablet RxNorm: 745610 1 Tablet(s) PO Q8 as needed 09/27/2016 10/23/2016 Inactive lisinopril 10 mg tablet RxNorm: 885398 Take 1 tablet by mouth daily 09/25/2016 01/02/2017 Inactive - First Attempt Ref: [id number] Vitamin D2 50,000 un it capsule RxNorm: 256184 1 Capsule(s) PO QW 09/06/2016 No Stop Date Active hydrocodone 5 mg-linh taminophen 325 mg tablet RxNorm: 159988 1 Tablet(s) PO Q8 as needed 08/28/2016 09/26/2016 Inactive Toujeo SoloStar 300 unit/mL (1.5 mL) subcutaneous insulin pen RxNorm: 2911671 25 Unit(s) SQ QHS 08/23/2016 08/29/2017 Inactive dosage increase hydrocodone 5 mg-linh taminophen 325 mg tablet RxNorm: 402807 1 Tablet(s) PO Q8 as needed 07/26/2016 08/27/2016 Inactive Protonix 40 mg table t,delayed release RxNorm: 546315 Take 1 tablet by mout h daily 07/24/2016 11/26/2016 In active - First Attempt Ref: [id number] hydrocodone 5 mg-linh taminophen 325 mg tablet RxNorm: 212060 1 Tablet(s) PO Q8 as needed 06/19/2016 07/21/2016 Inactive Bertlaytonanuj Sanaar 300 unit/mL (1.5 mL) subcutaneous insulin pen RxNorm: 7031948 32 Unit(s) SQ QHS 05/30/2016 08/22/2016 Inactive dosage increase hydrocodone 5 mg-linh taminophen 325 mg tablet RxNorm: 624584 1 Tablet(s) PO Q8 as needed 05/22/2016 06/18/2016 Inactive hydrocodone 5 mg-linh taminophen 325 mg tablet RxNorm: 607298 1 Tablet(s) PO Q8 as needed 04/18/2016 05/17/2016 Inactive Protonix 40 mg table t,delayed release RxNorm: 658363 Take 1 tablet by mout h daily 04/05/2016 07/03/2016 In active - Ref: [id number] metformin 500 mg tablet RxNorm: 529906 Take 1 tablet by mouth daily 04/04/2016 07/02/2016 Inactive - Ref: [id number] Xanax 0.5 mg tablet RxNorm: 984698 1 Tablet(s) PO TID 03/30/2016 09/25/2016 Inactive Xanax 0.5 mg tablet RxNorm: 718742 1 Tablet(s) PO TID 03/23/2016 12/25/2016 Inactive hydrocodone 5 mg-linh taminophen 325 mg tablet RxNorm: 566263 1 Tablet(s) PO Q8 as needed 03/06/2016 04/04/2016 Inactive Cipro 500 mg tablet RxNorm: 222024 1 Tablet(s) PO BID 02/24/2016 03/04/2016 Inactive Miralax 17 gram oral powder packet RxNorm: 709491 1 packet PO every oth er day 01/27/2016 No Stop Date Active hydrocodone 5 mg-linh taminophen 325 mg tablet RxNorm: 490180 1 Tablet(s) PO Q8 as needed 01/27/2016 02/25/2016 Inactive lisinopril 10 mg tablet RxNorm: 445408 1 Tablet(s) PO daily 01/12/2016 09/24/2016 Inactive simvastatin 40 mg ta blet RxNorm: 732352 1 Tablet(s) PO QHS 01/12/2016 11/28/2016 Inactive simvastatin 40 mg ta blet RxNorm: 136337 1 Tablet(s) PO QHS 01/11/2016 01/11/2016 Inactive lisinopril 10 mg tablet RxNorm: 714998 1 Tablet(s) PO daily 01/06/2016 01/11/2016 Inactive simvastatin 40 mg ta blet RxNorm: 349226 1 Tablet(s) PO daily 12/28/2015 01/10/2016 Inactive hydrocodone 5 mg-linh taminophen 325 mg tablet RxNorm: 056650 1 Tablet(s) PO Q8 as needed 12/27/2015 01/26/2016 Inactive Xanax 0.5 mg tablet RxNorm: 384160 1 Tablet(s) PO TID 11/30/2015 03/29/2016 Inactive meclizine 25 mg tablet RxNorm: 176373 1 Tablet(s) PO Q6 PRN TAKE ONE TABLET BY MOUTH EVERY 6 HOURS NEEDED 11/25/2015 02/22/2016 Inactive Toujeo SoloStar 300 unit/mL (1.5 mL) subcutaneous insulin pen RxNorm: 4439167 30 Unit(s) SQ QHS 11/25/2015 05/29/2016 Inactive dosage increase omeprazole 20 mg cap jacquelyn,delayed release RxNorm: 375351 1 Capsule(s) PO daily 10/06/2015 01/26/2016 In active Toujeo SoloStar 300 unit/mL (1.5 mL) subcutaneous insulin pen RxNorm: 6602870 35 Unit(s) SQ QHS 08/02/2015 11/24/2015 Inactive dosage increase Vitamin D2 50,000 un it capsule RxNorm: 769387 1 Capsule(s) PO QW 08/02/2015 09/05/2016 Inactive hydrocodone 5 mg-linh taminophen 325 mg tablet RxNorm: 903514 1 Tablet(s) PO Q8 as needed 07/11/2015 12/26/2015 Inactive Xanax 0.5 mg tablet RxNorm: 853777 1 Tablet(s) PO TID 06/30/2015 06/29/2015 Inactive Xanax 0.5 mg tablet RxNorm: 376410 1 Tablet(s) PO TID 06/30/2015 12/25/2015 Inactive hydrocodone 5 mg-linh taminophen 325 mg tablet RxNorm: 147610 1 Tablet(s) PO Q8 as needed 05/06/2015 07/10/2015 Inactive Symbicort 160 mcg-4. 5 mcg/actuation HFA aerosol inhaler RxNorm: 6155431 INH 04/25/2015 No Stop Date Active Levemir FlexTouch 10 0 unit/mL (3 mL) subcutaneous insulin pen RxNorm: 134841 30 Unit(s) SQ QHS 04/25/2015 11/24/2015 Inactive prednisone 20 mg tablet RxNorm: 488706 1 Tablet(s) PO BID 04/25/2015 04/29/2015 Inactive metformin 500 mg tablet RxNorm: 398943 1 Tablet(s) PO daily 04/25/2015 04/03/2016 Inactive amoxicillin 500 mg c apsule RxNorm: 074266 1 Capsule(s) PO TID 04/14/2015 04/13/2015 Inactive amoxicillin 500 mg c apsule RxNorm: 662594 1 Capsule(s) PO TID a nd recommend probiotic tid (otc) 04/14/2015 04/20/2015 Inactive Kenalog 40 mg/mL bartolome pension for injection RxNorm: 5504378 Milliliter(s) Inj 04/12/2015 04/12/2015 In active hydrocodone 5 mg-linh taminophen 325 mg tablet RxNorm: 763273 1 Tablet(s) PO Q8 as needed 03/30/2015 05/05/2015 Inactive Lantus 100 unit/mL s ubcutaneous solution RxNorm: 156752 25 Unit(s) SQ QPM 03/24/2015 04/25/2015 In active meclizine 25 mg tablet RxNorm: 780091 Tablet(s) TAKE ONE TABLET BY MOUTH EVERY 6 HOURS NEEDED 03/08/2015 04/06/2015 Inactive meclizine 25 mg tablet RxNorm: 126872 TAKE ONE TABLET BY MOUTH EVERY 6 HOURS A S NEEDED 02/25/2015 03/03/2015 Inactive Lantus 100 unit/mL s ubcutaneous solution RxNorm: 756975 20 Unit(s) SQ QPM 02/23/2015 03/23/2015 In active Lantus 100 unit/mL s ubcutaneous solution RxNorm: 780776 25 Unit(s) SQ QPM 02/23/2015 02/22/2015 In active hydrocodone 5 mg-linh taminophen 325 mg tablet RxNorm: 707428 1 Tablet(s) PO Q8 as needed 02/17/2015 03/29/2015 Inactive Xanax 0.5 mg tablet RxNorm: 359587 1 Tablet(s) PO TID 02/03/2015 06/29/2015 Inactive Lantus 100 unit/mL s ubcutaneous solution RxNorm: 778364 20 Unit(s) SQ QPM 12/29/2014 02/22/2015 In active Phenergan 12.5 mg re ctal suppository RxNorm: 134501 1 Suppository RTL Q6 PRN 12/23/2014 No Stop Date Active nausea Kenalog 40 mg/mL bartolome pension for injection RxNorm: 6488990 Milliliter(s) Inj 12/23/2014 12/23/2014 In active prednisone 20 mg tablet RxNorm: 359772 2 Tablet(s) PO daily 12/13/2014 12/17/2014 Inactive prednisone 20 mg tablet RxNorm: 255299 2 Tablet(s) PO daily 12/13/2014 12/12/2014 Inactive meclizine 25 mg tablet RxNorm: 438709 1 Tablet(s) PO Q6 PRN 12/09/2014 02/24/2015 Inactive hydrocodone 5 mg-linh taminophen 325 mg tablet RxNorm: 559357 1 Tablet(s) PO Q8 as needed 12/09/2014 02/16/2015 Inactive Vitamin B-12 1,000 m cg/mL oral drops RxNorm: 1036303 1 Milliliter(s) PO d aily No Start Date Active Alphagan P 0.1 % eye drops RxNorm: 018738 1 Drop(s) OPH BID No Start Date Active aspirin 325 mg table t,delayed release RxNorm: 120211 1 Tablet(s) PO daily No Start Date Active Tricor 145 mg tablet RxNorm: 568704 1 Tablet(s) PO daily No Start Date Active vitamin [id number] B1 oral liquid RxNorm: 1,000 Microgram(s) PO daily No Start Date Active atenolol 50 mg tablet RxNorm: 179322 1 Tablet(s) PO daily No Start Date Active Protonix 40 mg table t,delayed release RxNorm: 792329 1 Tablet(s) PO daily No Start Date 04/04/2016 Inactive glipizide 10 mg tablet RxNorm: 304595 1 Tablet(s) PO BID No Start Date 03/22/2015 Inactive Lantus 100 unit/mL s ubcutaneous solution RxNorm: 127352 15 Unit(s) SQ QPM No Start Date 12/28/2014 Inactive lisinopril 10 mg tablet RxNorm: 380871 1 Tablet(s) PO daily No Start Date 01/05/2016 Inactive Vitamin D2 50,000 un it capsule RxNorm: 283132 1 Capsule(s) PO QW No Start Date 08/01/2015 Inactive Toujeo SoloStar 300 unit/mL (1.5 mL) subcutaneous insulin pen RxNorm: 5136212 30 Unit(s) SQ QHS No Start Date 08/01/2015 Inactive simvastatin 40 mg ta blet RxNorm: 550520 1 Tablet(s) PO daily No Start Date 12/27/2015 Inactive testosterone cypiona te 200 mg/mL intramuscular oil RxNorm: 517158 1 Milliliter(s) IM monthly No Start Date 01/16/2018 Inactive hydrocodone 5 mg-linh taminophen 325 mg tablet RxNorm: 897939 1 Tablet(s) PO Q8 as needed No Start Date 12/08/2014 Inactive metformin 500 mg tablet RxNorm: 246934 1 Tablet(s) PO daily No Start Date 04/24/2015 Inactive omeprazole 20 mg cap jacquelyn,delayed release RxNorm: 597505 1 Capsule(s) PO daily No Start Date 10/05/2015 Inactive Flomax 0.4 mg capsule RxNorm: 983875 1 Capsule(s) PO daily No Start Date 03/23/2015 Inactive Medication Administered Medication Codes Instruc tions Start Date Status testosterone cypionate 200 mg/mL intramuscular oil RxNorm: 3155673 1/2Milliliter 09/02/2018 Active testosterone enanthate 200 mg/mL intramuscular oil RxNorm: 983543 Milliliter 08/21/2018 No longer Active testosterone cypionate 200 mg/mL intramuscular oil RxNorm: 9089755 Milliliter 08/08/2018 No longer Active testosterone cypionate 200 mg/mL intramuscular oil RxNorm: 5030685 1/2Milliliter 07/28/2018 No longer Active testosterone cypionate 200 mg/mL intramuscular oil RxNorm: 558135 Milliliter 07/16/2018 No longer Active testosterone cypionate 200 mg/mL intramuscular oil RxNorm: 944033 Milliliter 07/02/2018 No longer Active testosterone cypionate 200 mg/mL intramuscular oil RxNorm: 486465 Milliliter 06/24/2018 No longer Active testosterone cypionate 200 mg/mL intramuscular oil RxNorm: 762847 Milliliter 06/13/2018 No longer Active testosterone cypionate 200 mg/mL intramuscular oil RxNorm: 742606 Milliliter 06/05/2018 No longer Active testosterone cypionate 200 mg/mL intramuscular oil RxNorm: 439396 Milliliter 05/30/2018 No longer Active testosterone cypionate 200 mg/mL intramuscular oil RxNorm: 463928 Milliliter 05/22/2018 No longer Active testosterone cypionate 200 mg/mL intramuscular oil RxNorm: 793728 /2Milliliter 05/12/2018 No longer Active testosterone cypionate 200 mg/mL intramuscular oil RxNorm: 817830 Milliliter 05/02/2018 No longer Active testosterone cypionate 200 mg/mL intramuscular oil RxNorm: 211913 0.5Milliliter 04/24/2018 No longer Active testosterone cypionate 200 mg/mL intramuscular oil RxNorm: 175327 1/2Milliliter 04/17/2018 No longer Active ketorolac 60 mg/2 mL intramuscular solution RxNorm: 7654254 Milliliter 03/07/2018 No longer Active Kenalog 40 mg/mL suspension for injection RxNorm: 8599233 1.5Milliliter 01/30/2018 No longer Active testosterone cypionate 200 mg/mL intramuscular oil RxNorm: 847509 Milliliter 01/17/2018 No longer Active Kenalog 40 mg/mL suspension for injection RxNorm: 7291253 Milliliter 04/12/2015 No longer Active Kenalog 40 mg/mL suspension for injection RxNorm: 9365273 Milliliter 12/23/2014 No longer Active Immunizations Vaccine [...] Item Item Code Result Date Comp Metabolic Gpy799 NA 139 mEq/L 04/01/2018 Comp Metabolic Flq035 K 4.2 mEq/L 04/01/2018 Comp Metabolic Tjh814 CL 102 mEq/L 04/01/2018 Comp Metabolic Pis109 CO2 29.0 mEq/L 04/01/2018 Comp Metabolic Sea228 AN ION GAP 12 04/01/2018 Comp Metabolic Xja193 GL UCOSE 87 mg/dL 04/01/2018 Comp Metabolic Kzr088 Cr eat 1.1 mg/dL 04/01/2018 Comp Metabolic Iom245 eG FR 70 ml/min/1.73m2 04/01 Comp Metabolic Ztw358 BUN 21 mg/dL 04/01/2018 Comp Metabolic Gxx950 B/ C Ratio 19.4 Ratio 04/01/2018 Comp Metabolic Snr567 CA LCIUM 9.1 mg/dL 04/01/2018 Comp Metabolic Rbd097 AL K PHOS 60 U/L 04/01/2018 Comp Metabolic Ccs728 T(SGOT) 15 U/L 04/01/2018 Comp Metabolic Kby295 AL T(SGPT) 18 U/L 04/01/2018 Comp Metabolic Mxe555 BI LI T 0.4 mg/dL 04/01/2018 Comp Metabolic Lbf785 AL BUMIN 4.0 g/dL 04/01/2018 Comp Metabolic Lpl066 TP RO 6.5 g/dL 04/01/2018 Comp Metabolic Byr485 GL OB 2.5 g/dL 04/01/2018 Comp Metabolic Gww744 A/ G Ratio 1.6 Ratio 04/01/2018 Comp Metabolic Nbx348 Os mo 280 mOsmo 04/01/2018 Lipid Ord30 [...] 34.3 pg 04/01/2018 Cbc With Differential Ord2 Pickett% 6.0 % 04/01/2018 Cbc With Differential Ord2 [...] 3.25 K/ul 04/01/2018 Cbc With Differential Ord2 Pickett ABS# 0.6 K/ul 04/01/2018 Cbc With Differential Ord2 Eos ABS# 0.4 K/ul 04/01/2018 Cbc With Differential Ord2 Baso ABS# 0.0 K/ul 04/01/2018 %Hba1C Ljv806 % HbA1c 27516-0 8.0 % 04/01/2018 %Hba1C Qxk695 Gluc Ave 183 mg/dL 04/01/2018 Testosterone Gxv739 Testo 111.3 ng/dL 04/01/2018 Testosterone Zfj307 Testo 135.4 ng/dL 01/14/2018 Cbc With Differential [...] 36.0 pg 01/14/2018 Cbc With Differential Ord2 Pickett% 6.8 % 01/14/2018 Cbc With Differential Ord2 [...] 2.71 K/ul 01/14/2018 Cbc With Differential Ord2 Pickett ABS# 0.8 K/ul 01/14/2018 Cbc With Differential Ord2 Eos ABS# 0.2 K/ul 01/14/2018 Cbc With Differential Ord2 Baso ABS# 0.0 K/ul 01/14/2018 Comp Metabolic Orn751 NA 134 mEq/L 11/20/2017 Comp Metabolic Vby763 K 4.4 mEq/L 11/20/2017 Comp Metabolic Euy291 CL 99 mEq/L 11/20/2017 Comp Metabolic Eds442 CO2 29.0 mEq/L 11/20/2017 Comp Metabolic Qst414 AN ION GAP 10 11/20/2017 Comp Metabolic Xlu812 GL UCOSE 218 mg/dL 11/20/2017 Comp Metabolic Zkd044 Cr eat 1.0 mg/dL 11/20/2017 Comp Metabolic Afy323 eG FR 78 ml/min/1.73m2 11/20 Comp Metabolic Yfp139 BUN 13 mg/dL 11/20/2017 Comp Metabolic Pqo121 B/ C Ratio 13.3 Ratio 11/20/2017 Comp Metabolic Unm532 CA LCIUM 9.0 mg/dL 11/20/2017 Comp Metabolic Fci970 AL K PHOS 71 U/L 11/20/2017 Comp Metabolic Mwm460 T(SGOT) 18 U/L 11/20/2017 Comp Metabolic Mcq805 AL T(SGPT) 17 U/L 11/20/2017 Comp Metabolic Ogy168 BI LI T 0.4 mg/dL 11/20/2017 Comp Metabolic Jvk104 AL BUMIN 4.1 g/dL 11/20/2017 Comp Metabolic Sdu666 TP RO 6.5 g/dL 11/20/2017 Comp Metabolic Hpt285 GL OB 2.4 g/dL 11/20/2017 Comp Metabolic Rpv441 A/ G Ratio 1.8 Ratio 11/20/2017 Comp Metabolic Lgu259 Os mo 275 mOsmo 11/20/2017 Cbc With [...] 35.2 pg 11/20/2017 Cbc With Differential Ord2 Pickett% 7.2 % 11/20/2017 Cbc With Differential Ord2 [...] 3.34 K/ul 11/20/2017 Cbc With Differential Ord2 Pickett ABS# 0.6 K/ul 11/20/2017 Cbc With Differential Ord2 Eos ABS# 0.3 K/ul 11/20/2017 Cbc With Differential Ord2 Baso ABS# 0.0 K/ul 11/20/2017 Vitamin D 25 Oh Sgh0771 VITAMIN D, 25 HYDROXY 43.72 ng/mL 11/20/2017 %Hba1C Bqk866 % HbA1c 48413-1 7.4 % 11/20/2017 %Hba1C Sda744 Gluc Ave 166 mg/dL 11/20/2017 %Hba1C Yxg911 % HbA1c 62489-6 7.2 % 08/20/2017 %Hba1C Rvr416 Gluc Ave 160 mg/dL 08/20/2017 Lipid Ord30 [...] 34.7 pg 08/20/2017 Cbc With Differential Ord2 Pickett% 7.6 % 08/20/2017 Cbc With Differential Ord2 [...] 2.42 K/ul 08/20/2017 Cbc With Differential Ord2 [place]ett ABS# 0.6 K/ul 08/20/2017 Cbc With Differential Ord2 Eos ABS# 0.3 K/ul 08/20/2017 Cbc With Differential Ord2 Baso ABS# 0.0 K/ul 08/20/2017 Tsh Ord6 hTSH II 2.27 uIU/mL 08/20/2017 Comp Metabolic Qvx274 NA 138 mEq/L 08/20/2017 Comp Metabolic Jew608 K 4.3 mEq/L 08/20/2017 Comp Metabolic Yip003 CL 102 mEq/L 08/20/2017 Comp Metabolic Lvm604 CO2 29.0 mEq/L 08/20/2017 Comp Metabolic Xyb144 AN ION GAP 11 08/20/2017 Comp Metabolic Zws366 GL UCOSE 89 mg/dL 08/20/2017 Comp Metabolic Icy622 Cr eat 1.0 mg/dL 08/20/2017 Comp Metabolic Ama700 eG FR 80 ml/min/1.73m2 08/20 Comp Metabolic Wyq360 BUN 13 mg/dL 08/20/2017 Comp Metabolic Olx417 B/ C Ratio 13.5 Ratio 08/20/2017 Comp Metabolic Thd212 CA LCIUM 9.2 mg/dL 08/20/2017 Comp Metabolic Eic543 AL K PHOS 69 U/L 08/20/2017 Comp Metabolic Tuc520 T(SGOT) 18 U/L 08/20/2017 Comp Metabolic Tpn921 AL T(SGPT) 19 U/L 08/20/2017 Comp Metabolic Ffd893 BI LI T 0.6 mg/dL 08/20/2017 Comp Metabolic Ofb081 AL BUMIN 4.0 g/dL 08/20/2017 Comp Metabolic Ziv407 TP RO 6.6 g/dL 08/20/2017 Comp Metabolic Qjl169 GL OB 2.6 g/dL 08/20/2017 Comp Metabolic Vhs411 A/ G Ratio 1.5 Ratio 08/20/2017 Comp Metabolic Kng581 Os mo 275 mOsmo 08/20/2017 Vitamin D 25 Oh Ksx6382 VITAMIN D, 25 HYDROXY 30.96 ng/mL 08/20/2017 B12 Iqy232 B12 >1500.00 pg/ml 02/22/2017 Cbc With Differential [...] 35.7 pg 02/20/2017 Cbc With Differential Ord2 Pickett% 6.3 % 02/20/2017 Cbc With Differential Ord2 [...] 3.19 K/ul 02/20/2017 Cbc With Differential Ord2 [place]ett ABS# 0.5 K/ul 02/20/2017 Cbc With Differential Ord2 Eos ABS# 0.4 K/ul 02/20/2017 Cbc With Differential Ord2 Baso ABS# 0.0 K/ul 02/20/2017 Comp Metabolic Yxu289 NA 138 mEq/L 02/20/2017 Comp Metabolic Wdy983 K 4.5 mEq/L 02/20/2017 Comp Metabolic Krt161 CL 101 mEq/L 02/20/2017 Comp Metabolic Ljr153 CO2 31.0 mEq/L 02/20/2017 Comp Metabolic Fst362 AN ION GAP 11 02/20/2017 Comp Metabolic Evx885 GL UCOSE 120 mg/dL 02/20/2017 Comp Metabolic Rah220 Cr eat 0.9 mg/dL 02/20/2017 Comp Metabolic Tlb597 eG FR 83 ml/min/1.73m2 02/20 Comp Metabolic Tci234 BUN 15 mg/dL 02/20/2017 Comp Metabolic Azn119 B/ C Ratio 16.1 Ratio 02/20/2017 Comp Metabolic Npy609 CA LCIUM 9.1 mg/dL 02/20/2017 Comp Metabolic Qvf868 AL K PHOS 67 U/L 02/20/2017 Comp Metabolic Ayr657 T(SGOT) 15 U/L 02/20/2017 Comp Metabolic Bva238 AL T(SGPT) 16 U/L 02/20/2017 Comp Metabolic Udh037 BI LI T 0.5 mg/dL 02/20/2017 Comp Metabolic Vcv636 AL BUMIN 4.0 g/dL 02/20/2017 Comp Metabolic Bcr291 TP RO 6.4 g/dL 02/20/2017 Comp Metabolic Slg933 GL OB 2.4 g/dL 02/20/2017 Comp Metabolic Vzq366 A/ G Ratio 1.7 Ratio 02/20/2017 Comp Metabolic Pid869 Os mo 278 mOsmo 02/20/2017 Tsh Ord6 hTSH II 2.05 uIU/mL 02/20/2017 %Hba1C Swn558 % HbA1c 14287-4 7.6 % 02/20/2017 %Hba1C Qjr475 Gluc Ave 171 mg/dL 02/20/2017 Vitamin D 25 Oh Jvb6543 VITAMIN D, 25 HYDROXY 44.40 ng/mL 12/21/2016 Comp Metabolic Hcs600 NA 131 mEq/L 12/21/2016 Comp Metabolic Tne484 K 4.2 mEq/L 12/21/2016 Comp Metabolic Euq899 CL 97 mEq/L 12/21/2016 Comp Metabolic Qms682 CO2 27.0 mEq/L 12/21/2016 Comp Metabolic Mcu195 AN ION GAP 11 12/21/2016 Comp Metabolic Vcp257 GL UCOSE 266 mg/dL 12/21/2016 Comp Metabolic Yil037 Cr eat 0.9 mg/dL 12/21/2016 Comp Metabolic Mjb147 eG FR 88 ml/min/1.73m2 12/21 Comp Metabolic Quw712 BUN 12 mg/dL 12/21/2016 Comp Metabolic Phs547 B/ C Ratio 13.6 Ratio 12/21/2016 Comp Metabolic Dnd442 CA LCIUM 8.6 mg/dL 12/21/2016 Comp Metabolic Rbl081 AL K PHOS 69 U/L 12/21/2016 Comp Metabolic Fek506 T(SGOT) 15 U/L 12/21/2016 Comp Metabolic Pbl546 AL T(SGPT) 14 U/L 12/21/2016 Comp Metabolic Gdr747 BI LI T 0.3 mg/dL 12/21/2016 Comp Metabolic Qew884 AL BUMIN 3.7 g/dL 12/21/2016 Comp Metabolic Sve527 TP RO 5.9 g/dL 12/21/2016 Comp Metabolic Zae394 GL OB 2.2 g/dL 12/21/2016 Comp Metabolic Rkq331 A/ G Ratio 1.7 Ratio 12/21/2016 Comp Metabolic Qql079 Os mo 272 mOsmo 12/21/2016 Cbc With [...] 34.6 pg 12/21/2016 Cbc With Differential Ord2 Pickett% 6.9 % 12/21/2016 Cbc With Differential Ord2 [...] 2.05 K/ul 12/21/2016 Cbc With Differential Ord2 [place]ett ABS# 0.4 K/ul 12/21/2016 Cbc With Differential Ord2 Eos ABS# 0.2 K/ul 12/21/2016 Cbc With Differential Ord2 Baso ABS# 0.0 K/ul 12/21/2016 Comp Metabolic Xsz295 NA 138 mEq/L 09/03/2016 Comp Metabolic Sfb786 K 4.5 mEq/L 09/03/2016 Comp Metabolic Jqj145 CL 102 mEq/L 09/03/2016 Comp Metabolic Uan593 CO2 30.0 mEq/L 09/03/2016 Comp Metabolic Auc067 AN ION GAP 11 09/03/2016 Comp Metabolic Oww146 GL UCOSE 113 mg/dL 09/03/2016 Comp Metabolic Jnr849 Cr eat 1.0 mg/dL 09/03/2016 Comp Metabolic Ymr890 eG FR 81 ml/min/1.73m2 09/03 Comp Metabolic Pew026 BUN 10 mg/dL 09/03/2016 Comp Metabolic Kcy803 B/ C Ratio 10.5 Ratio 09/03/2016 Comp Metabolic Baz719 CA LCIUM 9.1 mg/dL 09/03/2016 Comp Metabolic Wtm459 AL K PHOS 71 U/L 09/03/2016 Comp Metabolic Fvi914 T(SGOT) 18 U/L 09/03/2016 Comp Metabolic Tgd789 AL T(SGPT) 17 U/L 09/03/2016 Comp Metabolic Qzm403 BI LI T 0.6 mg/dL 09/03/2016 Comp Metabolic Ucg039 AL BUMIN 4.1 g/dL 09/03/2016 Comp Metabolic Pbp436 TP RO 6.4 g/dL 09/03/2016 Comp Metabolic Hbq429 GL OB 2.3 g/dL 09/03/2016 Comp Metabolic Kco018 A/ G Ratio 1.8 Ratio 09/03/2016 Comp Metabolic Lsr362 Os mo 276 mOsmo 09/03/2016 Vitamin D 25 Oh Mir3633 VITAMIN D, 25 HYDROXY 28.23 ng/mL 09/03/2016 [...] 34.4 pg 09/03/2016 Cbc With Differential Ord2 Pickett% 8.9 % 09/03/2016 Cbc With Differential Ord2 [...] 3.34 K/ul 09/03/2016 Cbc With Differential Ord2 Pickett ABS# 0.7 K/ul 09/03/2016 Cbc With Differential Ord2 Eos ABS# 0.4 K/ul 09/03/2016 Cbc With Differential Ord2 Baso ABS# 0.0 K/ul 09/03/2016 Lipid Ord30 CHOL 120 mg/dL 09/03/2016 Lipid Ord30 HDL 33.0 mg/dl 09/03/2016 Lipid Ord30 TRIG 161 mg/dL 09/03/2016 Lipid Ord30 LDL 55 mg/dL 09/03/2016 Lipid Ord30 C/HDL 3.6 Ratio 09/03/2016 %Hba1C Ukt909 % HbA1c 50099-7 7.5 % 09/03/2016 %Hba1C Mjx577 Gluc Ave 169 mg/dL 09/03/2016 Tsh Ord6 hTSH II 1.50 uIU/mL 05/23/2016 %Hba1C Ceg864 % HbA1c 07970-3 7.6 % 05/23/2016 %Hba1C Izt132 Gluc Ave 171 mg/dL 05/23/2016 Comp Metabolic Kun689 NA 135 mEq/L 05/23/2016 Comp Metabolic Ngt283 K 4.4 mEq/L 05/23/2016 Comp Metabolic Hov765 CL 99 mEq/L 05/23/2016 Comp Metabolic Tiw699 CO2 28.0 mEq/L 05/23/2016 Comp Metabolic Cdo150 AN ION GAP 12 05/23/2016 Comp Metabolic Cqz842 GL UCOSE 257 mg/dL 05/23/2016 Comp Metabolic Wzq616 Cr eat 0.8 mg/dL 05/23/2016 Comp Metabolic Bvn076 eG FR 95 ml/min/1.73m2 05/23 Comp Metabolic Onb519 BUN 11 mg/dL 05/23/2016 Comp Metabolic Fae658 B/ C Ratio 13.3 Ratio 05/23/2016 Comp Metabolic Jkq040 CA LCIUM 9.0 mg/dL 05/23/2016 Comp Metabolic Asv286 AL K PHOS 82 U/L 05/23/2016 Comp Metabolic Seg382 T(SGOT) 21 U/L 05/23/2016 Comp Metabolic Irv440 AL T(SGPT) 20 U/L 05/23/2016 Comp Metabolic Pps453 BI LI T 0.3 mg/dL 05/23/2016 Comp Metabolic Gnx625 AL BUMIN 4.0 g/dL 05/23/2016 Comp Metabolic Fla619 TP RO 6.4 g/dL 05/23/2016 Comp Metabolic Ygw081 GL OB 2.4 g/dL 05/23/2016 Comp Metabolic Rfb540 A/ G Ratio 1.6 Ratio 05/23/2016 Comp Metabolic Jjr949 Os mo 278 mOsmo 05/23/2016 Cbc With [...] 34.5 pg 05/23/2016 Cbc With Differential Ord2 Pickett% 6.1 % 05/23/2016 Cbc With Differential Ord2 [...] 2.38 K/ul 05/23/2016 Cbc With Differential Ord2 [place]ett ABS# 0.4 K/ul 05/23/2016 Cbc With Differential Ord2 Eos ABS# 0.2 K/ul 05/23/2016 Cbc With Differential Ord2 Baso ABS# 0.0 K/ul 05/23/2016 B12 Zqt436 B12 597.00 pg/ml 05/23/2016 Metabolic Ord15 NA [...] 0.92 uIU/mL 07/29/2015 Vitamin D 25 Oh Kvd8811 VITAMIN D, 25 HYDROXY 26.93 ng/mL 07/29/2015 %Hba1C Uhe360 % HbA1c 61991-2 8.8 % 07/29/2015 %Hba1C Yiz076 Gluc Ave 206 mg/dL 07/29/2015 Cbc With [...] Ord2 RDW 14.9 % 07/29/2015 Comp Metabolic Mtc947 NA 138 mEq/L 07/29/2015 Comp Metabolic Sel424 K 4.4 mEq/L 07/29/2015 Comp Metabolic Ftc572 CL 102 mEq/L 07/29/2015 Comp Metabolic Bry902 CO2 28.0 mEq/L 07/29/2015 Comp Metabolic Edt605 AN ION GAP 12 07/29/2015 Comp Metabolic Ewq240 GL UCOSE 261 mg/dL 07/29/2015 Comp Metabolic Qda503 Cr eat 1.0 mg/dL 07/29/2015 Comp Metabolic Btj961 eG FR 77 ml/min/1.73m2 07/29 Comp Metabolic Bbh958 BUN 13 mg/dL 07/29/2015 Comp Metabolic Xbl327 B/ C Ratio 13.0 Ratio 07/29/2015 Comp Metabolic Ffc200 CA LCIUM 9.1 mg/dL 07/29/2015 Comp Metabolic Hzo341 AL K PHOS 64 U/L 07/29/2015 Comp Metabolic Bjn297 T(SGOT) 20 U/L 07/29/2015 Comp Metabolic Mil534 AL T(SGPT) 22 U/L 07/29/2015 Comp Metabolic Hkw339 BI LI T 0.4 mg/dL 07/29/2015 Comp Metabolic Hym123 AL BUMIN 4.0 g/dL 07/29/2015 Comp Metabolic Qtu753 TP RO 6.1 g/dL 07/29/2015 Comp Metabolic Owe878 GL OB 2.1 g/dL 07/29/2015 Comp Metabolic Ijb319 A/ G Ratio 1.9 Ratio 07/29/2015 Comp Metabolic Xnf394 Os mo 285 mOsmo 07/29/2015 Cbc With [...] Ord2 RDW 13.1 % 05/06/2015 Comp Metabolic Ojb309 NA 134 mEq/L 05/06/2015 Comp Metabolic Oza616 K 4.4 mEq/L 05/06/2015 Comp Metabolic Tze272 CL 98 mEq/L 05/06/2015 Comp Metabolic Zgq053 CO2 29.0 mEq/L 05/06/2015 Comp Metabolic Nza830 AN ION GAP 11 05/06/2015 Comp Metabolic Aiq029 GL UCOSE 321 mg/dL 05/06/2015 Comp Metabolic Vjs482 Cr eat 1.0 mg/dL 05/06/2015 Comp Metabolic Aui757 eG FR 78 ml/min/1.73m2 05/06 Comp Metabolic Dyb857 BUN 20 mg/dL 05/06/2015 Comp Metabolic Csj064 B/ C Ratio 20.4 Ratio 05/06/2015 Comp Metabolic Qgl045 CA LCIUM 9.5 mg/dL 05/06/2015 Comp Metabolic Ywn815 AL K PHOS 62 U/L 05/06/2015 Comp Metabolic Ojs235 T(SGOT) 21 U/L 05/06/2015 Comp Metabolic Vun928 AL T(SGPT) 37 U/L 05/06/2015 Comp Metabolic Dpu396 BI LI T 0.4 mg/dL 05/06/2015 Comp Metabolic Nyc214 AL BUMIN 3.8 g/dL 05/06/2015 Comp Metabolic Tsk009 TP RO 6.1 g/dL 05/06/2015 Comp Metabolic Clu529 GL OB 2.3 g/dL 05/06/2015 Comp Metabolic Vgm005 A/ G Ratio 1.7 Ratio 05/06/2015 Comp Metabolic Ysu161 Os mo 283 mOsmo 05/06/2015 Tsh Ord6 hTSH II 1.65 uIU/mL 02/18/2015 B12 Str267 B12 605.00 pg/ml 02/18/2015 %Hba1C Voe686 % HbA1c 76361-3 8.3 % 02/18/2015 %Hba1C Xve076 Gluc Ave 192 mg/dL 02/18/2015 Cbc With [...] Ord2 RDW 13.9 % 02/17/2015 Comp Metabolic Cgv181 NA 137 mEq/L 02/17/2015 Comp Metabolic Rln087 K 4.4 mEq/L 02/17/2015 Comp Metabolic Xxb307 CL 100 mEq/L 02/17/2015 Comp Metabolic Dca360 CO2 31.0 mEq/L 02/17/2015 Comp Metabolic Ark567 AN ION GAP 10 02/17/2015 Comp Metabolic Jgc917 GL UCOSE 307 mg/dL 02/17/2015 Comp Metabolic Iyg847 Cr eat 1.0 mg/dL 02/17/2015 Comp Metabolic Jss772 eG FR 74 ml/min/1.73m2 02/17 Comp Metabolic Xga894 BUN 22 mg/dL 02/17/2015 Comp Metabolic Waw889 B/ C Ratio 21.4 Ratio 02/17/2015 Comp Metabolic Wpb354 CA LCIUM 9.5 mg/dL 02/17/2015 Comp Metabolic Yrq708 AL K PHOS 78 U/L 02/17/2015 Comp Metabolic Qkh184 T(SGOT) 18 U/L 02/17/2015 Comp Metabolic Qla763 AL T(SGPT) 32 U/L 02/17/2015 Comp Metabolic Luf156 BI LI T 0.5 mg/dL 02/17/2015 Comp Metabolic Qpr610 AL BUMIN 4.3 g/dL 02/17/2015 Comp Metabolic Vbv319 TP RO 6.7 g/dL 02/17/2015 Comp Metabolic Hkq044 GL OB 2.4 g/dL 02/17/2015 Comp Metabolic Mzz187 A/ G Ratio 1.8 Ratio 02/17/2015 Comp Metabolic Ixt138 Os mo 289 mOsmo 02/17/2015 Review of [...] Procedure Codes Date THER/PROPH/DIAG INJ SC/IM CPT-4: 49167 09/02/2018 THER/PROPH/DIAG INJ SC/IM CPT-4: 34592 08/21/2018 THER/PROPH/DIAG INJ SC/IM CPT-4: 18244 08/08/2018 THER/PROPH/DIAG INJ SC/IM CPT-4: 78653 07/28/2018 THER/PROPH/DIAG INJ SC/IM CPT-4: 32870 07/16/2018 THER/PROPH/DIAG INJ SC/IM CPT-4: 53646 07/02/2018 PPPS, SUBSEQ VISIT CPT- 4: G0439 06/30/2018 THER/PROPH/DIAG INJ SC/IM CPT-4: 03750 06/24/2018 THER/PROPH/DIAG INJ SC/IM CPT-4: 08107 06/13/2018 ADMIN INFLUENZA VIRU S VAC CPT-4: G0008 06/06/2018 FLU VACC PRSV FREE I NC ANTIG CPT-4: 89547 06/06/2018 THER/PROPH/DIAG INJ SC/IM CPT-4: 04185 06/05/2018 THER/PROPH/DIAG INJ SC/IM CPT-4: 75501 05/30/2018 THER/PROPH/DIAG INJ SC/IM CPT-4: 65673 05/22/2018 THER/PROPH/DIAG INJ SC/IM CPT-4: 62082 05/12/2018 THER/PROPH/DIAG INJ SC/IM CPT-4: 88788 05/02/2018 THER/PROPH/DIAG INJ SC/IM CPT-4: 91701 04/24/2018 THER/PROPH/DIAG INJ SC/IM CPT-4: 82973 04/17/2018 KETOROLAC TROMETHAMI NE INJ CPT-4: J1885 03/07/2018 URINALYSIS NONAUTO W /O SCOPE CPT-4: 18637 03/07/2018 THER/PROPH/DIAG INJ SC/IM CPT-4: 77624 02/20/2018 TRIAMCINOLONE ACET I [place] NOS CPT-4: J3301 01/30/2018 THER/PROPH/DIAG INJ SC/IM CPT-4: 09924 01/17/2018 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-[address]: 402769031 CPT-4: G0436 04/25/2017 ADMIN INFLUENZA VIRU S VAC CPT-4: G0008 04/25/2017 ADMIN PNEUMOCOCCAL V ACCINE SNOMED CT: 30941433 CPT-4: G0009 04/25/2017 PNEUMOCOCCAL VACC [address]: 12274471 CPT-4: 81754 04/25/2017 FLU VACC PRSV FREE I NC ANTIG CPT-4: 30254 04/25/2017 ADMIN INFLUENZA VIRU S VAC CPT-4: G0008 05/22/2016 FLU VACC 4 TELLY 3 YRS PLUS IM Formatting Model/CDA Sections, Assigned to/Angela Clemons SNOMED CT: 23633082 CPT-4: 24953Jfiztsq 05/22/2016 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-[address]: 139209193 CPT-4: G0436 11/25/2015 URINALYSIS NONAUTO W /O SCOPE CPT-4: 86209 05/09/2015 TRIAMCINOLONE ACET I [place] NOS CPT-4: J3301 04/12/2015 DESTRUCT PREMALG LESION CPT-4: 92396 03/07/2015 DESTRUCT PREMALG LES 2-14 CPT-4: 97555 03/07/2015 REMOVE IMPACTED EAR WAX UNI CPT-4: 46684 12/31/2014 THER/PROPH/DIAG INJ SC/IM CPT-4: 84713 12/23/2014 TRIAMCINOLONE ACET I [place] NOS CPT-4: J3301 12/23/2014 Vital Signs Date Vital 09/02/2018 Blood Pressure 1: 140/80 Code: 8480-6 BMI: 21.2 Code: 55062-2 Heart Rate 1: 68 bpm Height: 5'11" SpO2: 97% Weight: 152 lbs 06/30/2018 BMI: 21.8 Code: 83624-3 Height: 5'11" Weight: 156 lbs 06/06/2018 Blood Pressure 1: 128/76 Code: 8480-6 BMI: 22.0 Code: 05667-3 Heart Rate 1: 81 bpm Height: 5'11" SpO2: 92% Weight: 158 lbs 04/04/2018 Blood Pressure 1: 124/70 Code: 8480-6 BMI: 20.8 Code: 88978-6 Heart Rate 1: 65 bpm Height: 5'11" SpO2: 95% Weight: 149 lbs 03/07/2018 Blood Pressure 1: 148/70 Code: 8480-6 BMI: 21.2 Code: 32631-8 Heart Rate 1: 66 bpm Height: 5'11" SpO2: 94% Weight: 152 lbs 02/20/2018 Blood Pressure 1: 134/58 Code: 8480-6 BMI: 20.5 Code: 13610-8 Heart Rate 1: 61 bpm Height: 5'11" SpO2: 92% Weight: 147 lbs 01/30/2018 Blood Pressure 1: 158/68 Code: 8480-6 BMI: 21.5 Code: 15195-8 Heart Rate 1: 71 bpm Height: 5'11" SpO2: 92% Weight: 154 lbs 01/14/2018 Blood Pressure 1: 156/70 Code: 8480-6 Height: Weight: 01/13/2018 Blood Pressure 1: 148/62 Code: 8480-6 BMI: 20.9 Code: 47810-8 Heart Rate 1: 54 bpm Height: 5'11" SpO2: 97% Weight: 150 lbs 11/19/2017 Blood Pressure 1: 150/60 Code: 8480-6 BMI: 21.8 Code: 54924-1 Heart Rate 1: 63 bpm Height: 5'11" SpO2: 98% Weight: 156 lbs 10/02/2017 Blood Pressure 1: 168/60 Code: 8480-6 BMI: 21.9 Code: 32859-2 Heart Rate 1: 52 bpm Height: 5'11" SpO2: 97% Weight: 157 lbs 07/23/2017 Blood Pressure 1: 170/70 Code: 8480-6 BMI: 21.8 Code: 71991-2 Heart Rate 1: 65 bpm Height: 5'11" SpO2: 98% Weight: 156 lbs 04/25/2017 Blood Pressure 1: 138/60 Code: 8480-6 BMI: 21.6 Code: 60899-3 Heart Rate 1: 55 bpm Height: 5'11" SpO2: 93% Weight: 155 lbs 02/19/2017 Blood Pressure 1: 138/64 Code: 8480-6 BMI: 21.3 Code: 69467-3 Heart Rate 1: 52 bpm Height: 5'11" SpO2: 96% Weight: 152 lbs 8 oz 01/21/2017 Blood Pressure 1: 160/68 Code: 8480-6 BMI: 21.3 Code: 30923-8 Heart Rate 1: 62 bpm Height: 5'11" SpO2: 96% Weight: 153 lbs 12/20/2016 Blood Pressure 1: 124/66 Code: 8480-6 BMI: 21.5 Code: 82475-9 Height: 5'11" Weight: 154 lbs 08/23/2016 Blood Pressure 1: 142/52 Code: 8480-6 BMI: 21.2 Code: 09204-7 Heart Rate 1: 54 bpm Height: 5'11" SpO2: 96% Weight: 152 lbs 05/22/2016 Blood Pressure 1: 130/76 Code: 8480-6 BMI: 21.5 Code: 05440-0 Heart Rate 1: 78 bpm Height: 5'11" SpO2: 92% Weight: 154 lbs 02/24/2016 Blood Pressure 1: 128/80 Code: 8480-6 BMI: 21.2 Code: 05930-3 Heart Rate 1: 74 bpm Height: 5'11" SpO2: 96% Weight: 152 lbs 01/27/2016 Blood Pressure 1: 144/60 Code: 8480-6 BMI: 21.2 Code: 30437-9 Heart Rate 1: 74 bpm Height: 5'11" SpO2: 97% Weight: 152 lbs 11/25/2015 Blood Pressure 1: 110/52 Code: 8480-6 BMI: 21.9 Code: 93343-8 Heart Rate 1: 65 bpm Height: 5'11" SpO2: 92% Weight: 157 lbs 07/28/2015 Blood Pressure 1: 138/62 Code: 8480-6 BMI: 21.8 Code: 86173-8 Heart Rate 1: 63 bpm Height: 5'11" SpO2: 91% Weight: 156 lbs 05/26/2015 Blood Pressure 1: 120/58 Code: 8480-6 BMI: 21.5 Code: 84214-4 Heart Rate 1: 99 bpm Height: 5'11" SpO2: 96% Weight: 154 lbs 05/06/2015 Blood Pressure 1: 120/58 Code: 8480-6 BMI: 21.2 Code: 99715-1 Heart Rate 1: 66 bpm Height: 5'11" SpO2: 96% Weight: 152 lbs 04/25/2015 Blood Pressure 1: 136/62 Code: 8480-6 BMI: 21.2 Code: 51378-0 Heart Rate 1: 63 bpm Height: 5'11" SpO2: 97% Weight: 152 lbs 04/12/2015 Blood Pressure 1: 160/58 Code: 8480-6 BMI: 21.6 Code: 44638-0 Heart Rate 1: 62 bpm Height: 5'11" Weight: 155 lbs 03/24/2015 Blood Pressure 1: 138/68 Code: 8480-6 BMI: 22.0 Code: 36808-2 Heart Rate 1: 65 bpm Height: 5'11" SpO2: 96% Weight: 158 lbs 03/07/2015 Blood Pressure 1: 116/52 Code: 8480-6 BMI: 22.2 Code: 15007-0 Heart Rate 1: 64 bpm Height: 5'11" SpO2: 97% Weight: 159 lbs 02/17/2015 Blood Pressure 1: 148/58 Code: 8480-6 BMI: 21.3 Code: 94506-6 Heart Rate 1: 63 bpm Height: 5'11" SpO2: 97% Weight: 153 lbs 12/31/2014 Blood Pressure 1: 100/60 Code: 8480-6 BMI: 21.8 Code: 29442-8 Heart Rate 1: 68 bpm Height: 5'11" Weight: 156 lbs 12/23/2014 Blood Pressure 1: 148/64 Code: 8480-6 BMI: 21.9 Code: 27025-3 Heart Rate 1: 64 bpm Height: 5'11" [...] Encounters Encounter Performer Loca tion Codes Date ([id number]) [id number] EST. 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 P ATIENT, LEVEL IV Diagnosis: Cellulitis of face[ICD10: L03.211] Diagnosis: Type 2 diabetes mellitus without complications[ICD10: E11.9] Diagnosis: Essential (primary) hypertension[ICD10: I10] Diagnosis: Encounter for immunization[ICD10: Z23] Karmen Ash MD, [facility] CPT-4: 16381 06/06/2018 ([id number]) 08809 EST. 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 P ATIENT, LEVEL III Diagnosis: Low back pain[ICD10: M54.5] Diagnosis: Dysuria[ICD10: R30.0] [facility] CPT-4: 38858 03/07/2018 ([id number]) 97685 EST. 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 P ATIENT, LEVEL III Diagnosis: Chronic obstructive pulmonary disease with (acute) exacerbation[ICD10: J44.1] Karmen Ash MD, [facility] CPT-4: 51107 01/30/2018 [id number] EST. PATIENT, LEVEL II Diagnosis: Insect bite (nonvenomous), left lower leg, initial encounter[ICD10: S80.862A] Karmen Ash MD, [facility] CPT-4: 86655 01/14/2018 ([id number]) 85595 EST. P ATIENT, LEVEL IV Diagnosis: Type 2 diabetes mellitus with hyperglycemia[ICD10: E11.65] Diagnosis: Chronic obstructive pulmonary disease, unspecified[ICD10: J44.9] Diagnosis: Other fatigue[ICD10: R53.83] Karmen Ash MD, [facility] CPT- 4: 79520 01/13/2018 ([id number]) 51652 EST. P ATIENT, LEVEL IV Diagnosis: Type 2 diabetes mellitus with hyperglycemia[ICD10: E11.65] Diagnosis: Vitamin D deficiency, unspecified[ICD10: E55.9] Diagnosis: Essential (primary) hypertension[ICD10: I10] Diagnosis: Abdominal distension (gaseous)[ICD10: R14.0] Diagnosis: Drug induced constipation[ICD10: K59.03] Karmen Ash MD, [facility] CPT-4: 43507 11/19/2017 [id number] EST. PATIENT, LEVEL IV Diagnosis: Low back pain[ICD10: M54.5] Diagnosis: Chronic obstructive pulmonary disease, unspecified[ICD10: J44.9] Brunilda Ash MD, [facility] CPT-4: 11830 10/02/2017 ([id number]) 57692 EST. P ATIENT, LEVEL IV Diagnosis: Essential (primary) hypertension[ICD10: I10] Diagnosis: Type 2 diabetes mellitus with hyperglycemia[ICD10: E11.65] Diagnosis: Vitamin D deficiency, unspecified[ICD10: E55.9] Diagnosis: Mixed hyperlipidemia[ICD10: E78.2] [facility] CPT-4: 66829 07/23/2017 ([id number]) 18355 EST. P ATIENT, LEVEL IV Diagnosis: Essential (primary) hypertension[ICD10: I10] Diagnosis: Type 2 diabetes mellitus with hyperglycemia[ICD10: E11.65] Diagnosis: Chronic obstructive pulmonary disease, unspecified[ICD10: J44.9] Diagnosis: Nicotine dependence, unspecified, uncomplicated[ICD10: F17.200] Diagnosis: Encounter for immunization[ICD10: Z23] Karmen Ash MD, [facility] CPT-4: 51895 04/25/2017 ([id number]) 60665 EST. P ATIENT, LEVEL IV Diagnosis: Type 2 diabetes mellitus with hyperglycemia[ICD10: E11.65] Diagnosis: Essential (primary) hypertension[ICD10: I10] Diagnosis: Anemia, unspecified[ICD10: D64.9] Karmen Ash MD, [facility] CPT- 4: 23046 02/19/2017 ([id number]) 74629 EST. P ATIENT, LEVEL IV Diagnosis: Slow transit constipation[ICD10: K59.01] Diagnosis: Gastro-esophageal reflux disease without esophagitis[ICD10: K21.9] Diagnosis: Essential (primary) hypertension[ICD10: I10] Karmen Ash MD, [facility] CPT-4: 00623 01/21/2017 ([id number]) 91792 EST. P ATIENT, LEVEL IV Diagnosis: Type 2 diabetes mellitus with hyperglycemia[ICD10: E11.65] Diagnosis: Vitamin D deficiency, unspecified[ICD10: E55.9] Diagnosis: Essential (primary) hypertension[ICD10: I10] Diagnosis: Chronic obstructive pulmonary disease, unspecified[ICD10: J44.9] Karmen Ash MD, [facility] CPT-4: 30158 12/20/2016 ([id number]) 14337 EST. P ATIENT, LEVEL IV Diagnosis: Type 2 diabetes mellitus with hyperglycemia[ICD10: E11.65] Diagnosis: Essential (primary) hypertension[ICD10: I10] Diagnosis: Mixed hyperlipidemia[ICD10: E78.2] Diagnosis: Vitamin D deficiency, unspecified[ICD10: E55.9] Karmen Ash MD, [facility] CPT-4: 41394 08/23/2016 ([id number]) 71008 EST. P ATIENT, LEVEL IV Diagnosis: Type 2 diabetes mellitus with hyperglycemia[ICD10: E11.65] Diagnosis: Essential (primary) hypertension[ICD10: I10] Diagnosis: Chronic obstructive pulmonary disease, unspecified[ICD10: J44.9] Karmen Ash MD, [facility] CPT-4: 40345 05/22/2016 ([id number]) 24401 EST. P ATIENT, LEVEL III Diagnosis: Dysuria[ICD10: R30.0] Diagnosis: Essential (primary) hypertension[ICD10: I10] Karmen Ash MD, [facility] CPT-4: 52704 02/24/2016 ([id number]) 20168 EST. P ATIENT, LEVEL IV Diagnosis: Gastro-esophageal reflux disease without esophagitis[ICD10: K21.9] Diagnosis: Slow transit constipation[ICD10: K59.01] Diagnosis: Type 2 diabetes mellitus with hyperglycemia[ICD10: E11.65] Karmen Ash MD, [facility] CPT-4: 01287 01/27/2016 ([id number]) 00428 EST. P ATIENT, LEVEL IV Diagnosis: Essential (primary) hypertension[ICD10: I10] Diagnosis: Type 2 diabetes mellitus with hyperglycemia[ICD10: E11.65] Diagnosis: Vitamin D deficiency, unspecified[ICD10: E55.9] Diagnosis: Chronic obstructive pulmonary disease, unspecified[ICD10: J44.9] Diagnosis: Mixed hyperlipidemia[ICD10: E78.2] Diagnosis: Tobacco use[ICD10: Z72.0] Karmen Ash MD, [facility] CPT- 4: 06645 11/25/2015 ([id number]) 52956 EST. P ATIENT, LEVEL IV Diagnosis: Type 2 diabetes mellitus with hyperglycemia[ICD10: E11.65] Diagnosis: Essential (primary) hypertension[ICD10: I10] Diagnosis: Vitamin D deficiency, unspecified[ICD10: E55.9] Karmen Ash MD, [facility] CPT-4: 65744 07/28/2015 ([id number]) 88433 EST. P ATIENT, LEVEL III Diagnosis: Type 2 diabetes mellitus with hyperglycemia[ICD10: E11.65] Diagnosis: Essential (primary) hypertension[ICD10: I10] Violeta Ash MD, [facility] CPT-4: 22041 05/26/2015 ([id number]) 69552 EST. P ATIENT, LEVEL III Diagnosis: DIABETES TYPE II[ICD9: 250.00] Diagnosis: COPD (chronic obstructive pulmonary disease)[ICD9: 496] Diagnosis: ESSENTIAL HYPERTENSION[ICD9: 401.9] Diagnosis: Cough[ICD9: 786.2] Violeta Ash MD, [facility] CPT-4: 76424 05/06/2015 ([id number]) 47826 EST. P ATIENT, LEVEL III Diagnosis: COPD (chronic obstructive pulmonary disease)[ICD9: 496] Diagnosis: DIABETES TYPE II[ICD9: 250.00] Diagnosis: Muscle ache[ICD9: 729.1] Karmen Ash MD, [facility] CPT- 4: 81188 04/25/2015 ([id number]) 26104 EST. P ATIENT, LEVEL III Diagnosis: ACTINIC KERATOSIS[ICD9: 702.0] Diagnosis: COPD (chronic obstructive pulmonary disease)[ICD9: 496] Diagnosis: DIABETES TYPE II[ICD9: 250.00] Diagnosis: ACUTE URI[ICD9: 465.9] Violeta Ash MD, [facility] CPT-4: 90787 04/12/2015 ([id number]) 72087 EST. P ATIENT, LEVEL III Diagnosis: DIABETES TYPE II[ICD9: 250.00] Violeta Ash MD, [facility] CPT-4: 78505 03/24/2015 ([id number]) 46529 EST. P ATIENT, LEVEL IV Diagnosis: DIABETES TYPE II[ICD9: 250.00] Diagnosis: Hypoglycemia[ICD9: 251.2] Diagnosis: Skin texture changes[ICD9: 782.8] Violeta Ash MD, [facility] CPT-4: 02101 03/07/2015 ([id number]) 19320 EST. P ATIENT, LEVEL IV Diagnosis: COPD (chronic obstructive pulmonary disease)[ICD9: 496] Diagnosis: Fatigue[ICD9: 780.79] Diagnosis: Insulin dependent diabetes mellitus[ICD9: 250.00] Diagnosis: Unsteady gait[ICD9: 781.2] Maame Ash MD, [facility] CPT-4: 05013 02/17/2015 ([id number]) 61781 EST. P ATIENT, LEVEL IV Diagnosis: BPPV (benign paroxysmal positional vertigo)[ICD9: 386.11] Diagnosis: Impacted cerumen[ICD9: 380.4] Diagnosis: ESSENTIAL HYPERTENSION[ICD9: 401.9] Diagnosis: Insulin dependent diabetes mellitus[ICD9: 250.00] [facility] CPT-4: 50553 12/23/2014 ([id number]) OFFICE VISI , [facility] - LEVEL 4 Diagnosis: Insulin dependent diabetes mellitus[ICD9: 250.00] Diagnosis: BPPV (benign paroxysmal positional vertigo)[ICD9: 386.11] Diagnosis: COPD (chronic obstructive pulmonary disease)[ICD9: 496] Diagnosis: Tobacco abuse[ICD9: 305.1] Diagnosis: Osteoarthritis[ICD9: 715.90] [facility] CPT- 4: 95885 12/09/2014 Plan of Care Planned Activity Notes C odes Status Date Visit Plan: Hypertension - well con trolled [...] assure normal liver response to medications. 09/02/2018 Patient Education: Patient Medication Summary Completed 09/02/2018 Patient Education: Hypertension Completed 09/02/2018 Patient Education: Diabetes Completed 09/02/2018 Patient Education: Cholesterol Management Completed 09/02/2018 Care Plan: Comp Metabolic Pending 09/02/2018 Care Plan: Cbc With Differential Pending 09/02/2018 Care Plan: %Hba1C KIKI C : 74176-5 Pending 09/02/2018 Care Plan: Tsh Pending 09/02/2018 Care Plan: Lipid Pending 09/02/2018 Care Plan: Testosterone Pending 09/02/2018 Care Plan: Vitamin D 25 Oh Pending 09/02/2018 Appointment: Injection 08/21/2018 Patient Education: Patient [...] care surrogate. 06/30/2018 Appointment: Karmen Espinal WPtel: [phone] [facility] - Annual Wellness Visit 06/30/2018 [...] pain. 06/06/2018 Appointment: [facility] Espinal [facility]Ptel[facility] [phone] [phone] (15 min) Moderate 06/06/2018 Patient [...] months 04/04/2018 Appointment: Karmen Espinal WPtel: [phone] [phone] [place] (15 min) Moderate 04/04/2018 Patient Education: Patient Medication Summary Completed 04/04/2018 Care Plan: Cbc With Differential Pending 04/04/2018 Care Plan: Testosterone repeat in 2 months Pending 04/04/2018 Appointment: Karmen Espinal WPtel: [phone] [phone] [place] (15 min) Moderate 03/25/2018 Visit Plan: Low back pain -history of kidney stone-UA negative today -increase fluids and call if pain does not resolve or if any worse. 03/07/2018 Appointment: Karmen Espinal WPtel: [phone] [phone] [place] (15 min) Moderate 03/07/2018 [...] 1 month 02/20/2018 Appointment: Karmen Espinal WPtel: [phone] (15 min) Moderate 02/20/2018 Patient Education: Patient Medication Summary Completed 02/20/2018 Visit Plan: COPD EXACERBATION - RETURNER D is a chronic problem for this [...] acute changes. 01/30/2018 Appointment: [facility] Espinal [facility]Ptel[facility] [phone] [phone] (15 min) Moderate 01/30/2018 Patient Education: Patient Medication Summary Completed 01/30/2018 Appointment: Karmen Espinal WPtel: [address] [place] [address] (15 min) Moderate 01/28/2018 Appointment: Injection 01/17/2018 Patient Education: Patient Medication Summary Completed 01/17/2018 Visit Plan: Cellulitis - start oral antibiotics as directed, return to clinic as previously directed, call for acute change in symptoms, worsening redness, warmth, discharge. 01/14/2018 Appointment: Karmen Espinal WPtel: [facility] [facility] [place] [address] (10 min) Simple 01/14/2018 Patient Education: Patient [...] starting to become less controlled. 01/13/2018 Appointment: Kamren Espinal WPtel: [address] [place] [address] (15 min) Moderate 01/13/2018 Patient Education: Patient Medication Summary Completed 01/13/2018 Referral: Hugo Villatoro HPtel:[phone] [place] [address] Patient's informed. Referral info ned monroy. Completed [...] change in blood pressure readings at home. Mcuuwswi-fdrywi-dvxti to see Dr Villatoro Constipation-start linzess daily 11/19/2017 Appointment: [facility] Espinal WPtel[facility] [phone] [phone] [place] (30 min) Complex 11/19/2017 Patient Education: Patient Medication Summary Completed 11/19/2017 Care Plan: Referral Order bloating, nausea SNOMED-CT : 818155660 Pending 11/19/2017 Visit Plan: Low back pain- [...] changes. 10/02/2017 Appointment: Brunilda Maravilla WPtel: [phone] [facility] [place] (15 min) Moderate 10/02/2017 [...] less controlled. 07/23/2017 Appointment: Karmen Espinal WPtel: [address] [place], [place] [phone] (30 min) [facility] 07/23/2017 Patient Education: Patient Medication Summary Completed 07/23/2017 Patient Education: Smoking and Tobacco Addiction Completed 07/23/2017 Patient Education: Hypertension Completed 07/23/2017 Visit Plan: Hypertension - well izzy traore [...] readings are starting to become less controlled. Rpzxty-wvmarpc-prtpa labs 02/19/2017 Appointment: Karmen Espinal WPtel: [phone] [...] month 01/21/2017 Appointment: Karmen Espinal WPtel: [phone] [phone] (30 min) Complex 01/21/2017 Patient Education: Patient Medication Summary Completed 01/21/2017 Patient Education: Smoking and Tobacco Addiction Completed 01/21/2017 Patient Education: Hypertension Completed 01/21/2017 Care Plan: Referral Order SNOMED-CT : 190552547 Pending 01/21/2017 Visit Plan: Diabetes Mellitus - [...] acute changes. 12/20/2016 Appointment: Karmen Espinal WPtel: [facility]5 [phone] (30 min) Complex 12/20/2016 Patient Education: Patient Medication Summary Completed 12/20/2016 Patient Education: Smoking and Tobacco Addiction Completed 12/20/2016 Patient Education: Hypertension Completed 12/20/2016 Appointment: Karmen Espinal WPtel: [phone] [phone] (30 min) Complex 09/06/2016 Visit [...] level 08/23/2016 Appointment: Karmen Espinal WPtel: [phone] [phone] (30 min) Complex 08/23/2016 Patient [...] changes. 05/22/2016 Appointment: Karmen Espinal WPtel: [phone] [phone] [place] (30 min) Complex 05/22/2016 Patient Education: Patient Medication Summary Completed 05/22/2016 Patient Education: Smoking and Tobacco Addiction Completed 05/22/2016 Care Plan: Cbc With Differential Ordered 05/22/2016 Care Plan: %Hba1C KIKI C : 81160-1 Ordered 05/22/2016 Care Plan: Tsh Ordered 05/22/2016 [...] update 02/24/2016 Appointment: Karmen Espinal WPtel: [phone] [phone] (30 min) Complex 02/24/2016 Patient [...] regimen. 01/27/2016 Appointment: [facility]inal [facility]Ptel[facility] [phone] [phone] (30 min) Complex 01/27/2016 Patient [...] Completed 05/06/2015 Visit Plan: COPD EXACERBATION - RETURNER D is a chronic problem for this [...] POTENTIAL SIDE EFFECTS AND WORSENING OF SYMPTOMS. Ttmmvohv-sblwjkvd-SBPD SIMVASTATIN X 2 WEEKS AND CALL WITH [...] Care Plan: COMPLETE CBC AUTOMATED LOINC : 72724-8 Ordered 03/24/2015 Visit Plan: Diabetes Mellitus - [...] for removal. 03/07/2015 Appointment: Violeta Ash WPtel: [phone] (15 min) Moderate 03/07/2015 Patient [...] Care Plan: COMPLETE CBC AUTOMATED LOINC : 69354-7 Ordered 12/23/2014 Visit Plan: BPPV - Benign [...] next appt 12/09/2014 Appointment: Karmen Espinal WPtel: [address] [place], [place] [phone] [place] ([place]) New Patient 12/09/2014 Patient Education: Patient Medication Summary Completed 12/09/2014 Patient Education: .Amazing charts Parox ysmal positional vertigo Completed 12/09/2014 Patient Education: Smoking and Tobacco Addiction Completed 12/09/2014 Referral: Hugo Villatoro [facility]:[phone] [phone] [place] Referral Appointment Requested Referral: Luis [...] monthly -repeat labs in 2 months . Cellulitis - start oral antibiotics as [...] readings are starting to become less controlled. Thnvoq-xgjbust-izjcj labs Miralax 1 packet laron ry other day. [...] patient is stable, monitor for acute changes. KENALOG ANORO 1 INHALATION DAILY . COPD [...] patient is stable, monitor for acute changes. Refer to Dr Villatoro f or evaluation [...] change in blood pressure readings at home. Tnzebxvz-bwogzg-ojtqy to see Dr Villatoro Constipation-start linzess daily CHECK UA TORADOL INCREASE PO FLUIDS STRETCHES AND MUSCLE RUB . Low back pain -history of kidney stone -UA negative today -increase fluids and call if pain does not resolve or if any worse. . Cerumen Impaction - The impacted cerumen [...] keeping patient stabilized during the removal process. decrease glipizide t o 5mg twice daily [...] referral to Dr. Donohue for removal. . Medicare Exam - to day we [...] DOPA paperwork for health care surrogate. . COPD -recent pneum onia-symptoms have improved [...] of if symptoms worsen-call saturday with update . Esophageal Reflux - the patient has [...] today-monitor at home-follow up in 1 month INCREASE LISINOPRIL TO 10MG TWICE DAILY RETURN [...] readings are starting to become less controlled. HOLD SIMVASTATIN X 2 WEEKS -CALL ME [...] POTENTIAL SIDE EFFECTS AND WORSENING OF SYMPTOMS. Mefavowh-jcbigfpq-WJYS SIMVASTATIN X 2 WEEKS AND CALL WITH UPDATE STOP THE GLIPIZIDE CALL IF BLOOD SUGARS [...] change in blood pressure readings at home. flu/prevnar . Hypertension - well controlled - [...] Check labs today. . Diabetes Mellitus - I have recommended [...] size of the lesion, increase in pain. Symbicort 2 puffs tw ice daily . [...] use medication to assist cessation. [facility] Hyperlipidemia - pt has been counseled about [...] to assure normal liver response to medications. FLU SHOT . Diabetes Mellitus - controlled [...]
--- OUTSIDE RECORDS SUMMARY | 2020-03-29 09:19 | XMS REPORT | CCD ---
Author Author Dick Espinal Organization Violeta Ash MD, [facility] Address [address] [place] [address] Phone Care Team Providers Care Corporate Driver Name Role Phone PP Unavailable CCM Unavailable Summary Purpose Interface Exchange Insurance Providers Payer name Policy type / Coverage type Covered alliance party ID Effective Begin Date Effective End Date WPS Medicare Part B Medicare Part B [id number] Unknown Unknown [employer] Medicar e Part B [id number] Unknown Unkn own Family history Father Diagnosis Age At Onset Cancer Unknown Mother Diagnosis Age At Onset Cancer Unknown Social History Social History Element Codes Description Effective Dates Marital status Unknown M arried 12/09/2014 Employment Unknown Retir ed 12/09/[address]: 88333800 Currently smokes tobacco 12/09/2014 Number of years using tobacco Unknown > 50 12/09/2014 Number of cigarettes/day Unknown 30 (Pack and a half) 12/09/[address]: 248403660 Never drinks alcohol 12/09/2014 Allergies, Adverse Reactions, [...] cypiona te 200 mg/mL intramuscular oil RxNorm: 1047535 1/2 Milliliter(s) IM 09/02/2018 09/02/2018 Inactive hydrocodone 5 mg-linh taminophen 325 mg tablet RxNorm: 136980 1 Tablet(s) PO Q6-8H as needed 08/21/2018 09/14/2018 Active testosterone enantha te 200 mg/mL intramuscular oil RxNorm: 211760 Milliliter(s) IM 08/21/2018 08/21/2018 In active testosterone cypiona te 200 mg/mL intramuscular oil RxNorm: 7617257 Milliliter(s) IM 08/08/2018 08/08/2018 In active testosterone cypiona te 200 mg/mL intramuscular oil RxNorm: 5564705 1/2 Milliliter(s) IM 07/28/2018 07/28/2018 Inactive hydrocodone 5 mg-linh taminophen 325 mg tablet RxNorm: 415844 1 Tablet(s) PO Q6-8H as needed 07/21/2018 08/14/2018 Inactive testosterone cypiona te 200 mg/mL intramuscular oil RxNorm: 712099 Milliliter(s) IM 07/16/2018 07/16/2018 In active testosterone cypiona te 200 mg/mL intramuscular oil RxNorm: 291226 Milliliter(s) IM 07/02/2018 07/02/2018 In active Xanax 0.5 mg tablet RxNorm: 893906 1 Tablet(s) PO TID 06/27/2018 08/25/2018 Inactive testosterone cypiona te 200 mg/mL intramuscular oil RxNorm: 713820 Milliliter(s) IM 06/24/2018 06/24/2018 In active hydrocodone 5 mg-linh taminophen 325 mg tablet RxNorm: 829784 1 Tablet(s) PO Q6-8H as needed 06/23/2018 07/17/2018 Inactive testosterone cypiona te 200 mg/mL intramuscular oil RxNorm: 610627 Milliliter(s) IM 06/13/2018 06/13/2018 In active testosterone cypiona te 200 mg/mL intramuscular oil RxNorm: 478627 Milliliter(s) IM 06/05/2018 06/05/2018 In active testosterone cypiona te 200 mg/mL intramuscular oil RxNorm: 146084 1/2 Milliliter(s) IM weekly 05/30/2018 09/26/2018 Active testosterone cypiona te 200 mg/mL intramuscular oil RxNorm: 736586 Milliliter(s) IM 05/30/2018 05/30/2018 In active testosterone cypiona te 200 mg/mL intramuscular oil RxNorm: 481603 Milliliter(s) IM 05/22/2018 05/22/2018 In active hydrocodone 5 mg-linh taminophen 325 mg tablet RxNorm: 265430 1 Tablet(s) PO Q6-8H as needed 05/20/2018 06/13/2018 Inactive testosterone cypiona te 200 mg/mL intramuscular oil RxNorm: 831999 1/2 Milliliter(s) IM 05/12/2018 05/12/2018 Inactive testosterone cypiona te 200 mg/mL intramuscular oil RxNorm: 229308 Milliliter(s) IM 05/02/2018 05/02/2018 In active testosterone cypiona te 200 mg/mL intramuscular oil RxNorm: 421737 1/2 Milliliter(s) IM weekly 04/24/2018 05/29/2018 Inactive testosterone cypiona te 200 mg/mL intramuscular oil RxNorm: 760272 0.5 Milliliter(s) IM 04/24/2018 04/24/2018 Inactive hydrocodone 5 mg-linh taminophen 325 mg tablet RxNorm: 951372 1 Tablet(s) PO Q6-8H as needed 04/22/2018 05/16/2018 Inactive testosterone cypiona te 200 mg/mL intramuscular oil RxNorm: 096387 1/2 Milliliter(s) IM 04/17/2018 04/17/2018 Inactive testosterone cypiona te 200 mg/mL intramuscular oil RxNorm: 802447 1/2 Milliliter(s) IM weekly 04/16/2018 04/23/2018 Inactive Jardiance 10 mg tablet RxNorm: 5983006 1 Tablet(s) PO daily 04/04/2018 12/29/2018 Active Protonix 40 mg table t,delayed release RxNorm: 005291 1 Tablet(s) PO daily TAKE 1 TABLET BY MOUTH DAILY 04/04/2018 03/29/2019 Active - Ref: [id number] testosterone cypiona te 200 mg/mL intramuscular oil RxNorm: 579947 1 Milliliter(s) IM monthly 04/04/2018 04/15/2018 Inactive hydrocodone 5 mg-linh taminophen 325 mg tablet RxNorm: 080914 1 Tablet(s) PO Q6-8H as needed 03/19/2018 04/12/2018 Inactive Flomax 0.4 mg capsule RxNorm: 890487 1 Capsule(s) PO daily 03/10/2018 03/04/2019 Active Urecholine 25 mg tablet RxNorm: 796170 1 Tablet(s) PO BID 03/10/2018 07/07/2018 Inactive ketorolac 60 mg/2 mL intramuscular solution RxNorm: 4464661 Milliliter(s) IM 03/07/2018 03/07/2018 In active metformin 500 mg tablet RxNorm: 566035 Tablet(s) TAKE 1 TABLET BY MOUTH DAILY 02/20/2018 02/14/2019 Ac tive 1 q am and 1/2 tab q pm hydrocodone 5 mg-linh taminophen 325 mg tablet RxNorm: 191194 1 Tablet(s) PO Q6-8H as needed 02/20/2018 03/16/2018 Inactive Kenalog 40 mg/mL bartolome pension for injection RxNorm: 7307156 1.5 Milliliter(s) In j 01/30/2018 01/30/2018 In active hydrocodone 5 mg-linh taminophen 325 mg tablet RxNorm: 223561 1 Tablet(s) PO Q6-8H as needed 01/23/2018 02/16/2018 Inactive Urecholine 25 mg tablet RxNorm: 168398 1 Tablet(s) PO BID 01/22/2018 03/09/2018 Inactive Flomax 0.4 mg capsule RxNorm: 807572 1 Capsule(s) PO daily 01/22/2018 03/09/2018 Inactive Flomax 0.4 mg capsule RxNorm: 873483 1 Capsule(s) PO daily 01/22/2018 01/21/2018 Inactive Urecholine 25 mg tablet RxNorm: 194404 1 Tablet(s) PO BID 01/22/2018 01/21/2018 Inactive testosterone cypiona te 200 mg/mL intramuscular oil RxNorm: 651518 Milliliter(s) IM 01/17/2018 01/17/2018 In active testosterone cypiona te 200 mg/mL intramuscular oil RxNorm: 316081 1 Milliliter(s) IM monthly 01/17/2018 04/03/2018 Inactive lisinopril 10 mg tablet RxNorm: 776139 TAKE 1 TABLET BY MOUTH TWO TIMES DAILY 01/14/2018 01/08/2019 Ac tive - First Attempt Ref: [id number] doxycycline hyclate 100 mg tablet RxNorm: 304296 1 Tablet(s) PO BID 01/14/2018 01/23/2018 Inactive Xanax 0.5 mg tablet RxNorm: 887214 1 Tablet(s) PO TID 01/08/2018 04/06/2018 Inactive nystatin 100,000 uni t/mL oral suspension RxNorm: 179883 4 Milliliter(s) PO QI D Swish and swallow 01/08/2018 01/07/2018 Inactive nystatin 100,000 uni t/mL oral suspension RxNorm: 240010 4 Milliliter(s) PO QI D Swish and swallow 01/08/2018 01/12/2018 Inactive simvastatin 40 mg ta blet RxNorm: 741178 TAKE 1 TABLET BY MOUT H DAILY AT BEDTIME 12/30/2017 12/24/2018 Ac tive - First Attempt Ref: [id number] metformin 500 mg tablet RxNorm: 760263 TAKE 1 TABLET BY MOUTH DAILY 12/30/2017 02/19/2018 Inactive - First Attempt Ref: [id number] hydrocodone 5 mg-linh taminophen 325 mg tablet RxNorm: 010706 1 Tablet(s) PO Q6-8H as needed 12/25/2017 01/18/2018 Inactive Protonix 40 mg table t,delayed release RxNorm: 923590 Tablet(s) TAKE 1 TABL ET BY MOUTH DAILY 11/20/2017 04/03/2018 Inactive - Ref: [id number] Linzess 72 mcg capsule RxNorm: 6525006 1 Capsule(s) PO daily 11/19/2017 No Stop Date Active hydrocodone 5 mg-linh taminophen 325 mg tablet RxNorm: 733810 1 Tablet(s) PO Q6-8H as needed 11/19/2017 12/13/2017 Inactive hydrocodone 5 mg-linh taminophen 325 mg tablet RxNorm: 652921 1 Tablet(s) PO Q6-8H as needed 10/28/2017 11/18/2017 Inactive Xanax 0.5 mg tablet RxNorm: 096304 1 Tablet(s) PO TID 10/25/2017 12/22/2017 Inactive Xanax 0.5 mg tablet RxNorm: 583945 TAKE ONE TABLET BY MOUTH THREE TIMES A D AY 10/24/2017 12/22/2017 In active hydrocodone 5 mg-linh taminophen 325 mg tablet RxNorm: 195500 1 Tablet(s) PO Q6-8H as needed 09/30/2017 10/24/2017 Inactive Protonix 40 mg table t,delayed release RxNorm: 752388 TAKE 1 TABLET BY MOUT H DAILY 09/16/2017 11/19/2017 In active - Ref: [id number] Yovana Perkins 300 unit/mL (1.5 mL) subcutaneous insulin pen RxNorm: 3880269 35 Unit(s) SQ QHS 08/30/2017 No Stop Date Active dosage increase hydrocodone 5 mg-linh taminophen 325 mg tablet RxNorm: 454122 1 Tablet(s) PO Q6-8H as needed 08/28/2017 09/29/2017 Inactive hydrocodone 5 mg-linh taminophen 325 mg tablet RxNorm: 123980 1 Tablet(s) PO Q6-8H as needed 07/23/2017 08/24/2017 Inactive lisinopril 10 mg tablet RxNorm: 174582 1 Tablet(s) PO BID Take 1 tablet by mout h daily 07/23/2017 01/13/2018 Inactive hydrocodone 5 mg-linh taminophen 325 mg tablet RxNorm: 701477 1 Tablet(s) PO Q6-8H as needed 06/27/2017 07/22/2017 Inactive Xanax 0.5 mg tablet RxNorm: 368972 1 Tablet(s) PO TID 06/18/2017 10/25/2017 Inactive hydrocodone 5 mg-linh taminophen 325 mg tablet RxNorm: 365178 1 Tablet(s) PO Q6-8H as needed 05/27/2017 06/26/2017 Inactive Levaquin 500 mg tablet RxNorm: 516765 1 Tablet(s) PO daily 05/24/2017 05/23/2017 Inactive Levaquin 500 mg tablet RxNorm: 698322 1 Tablet(s) PO daily 05/24/2017 05/30/2017 Inactive Protonix 40 mg table t,delayed release RxNorm: 141438 Take 1 tablet by mout h daily 04/29/2017 09/15/2017 In active - Ref: [id number] hydrocodone 5 mg-linh taminophen 325 mg tablet RxNorm: 132676 1 Tablet(s) PO Q6-8H as needed 04/25/2017 05/26/2017 Inactive metformin 500 mg tablet RxNorm: 465944 Take 1 tablet by mouth daily 04/08/2017 12/29/2017 Inactive - First Attempt Ref: [id number] hydrocodone 5 mg-linh taminophen 325 mg tablet RxNorm: 729829 1 Tablet(s) PO Q6-8H as needed 03/27/2017 04/24/2017 Inactive hydrocodone 5 mg-linh taminophen 325 mg tablet RxNorm: 900344 1 Tablet(s) PO Q6-8H as needed 02/25/2017 03/26/2017 Inactive Protonix 40 mg table t,delayed release RxNorm: 341521 Tablet(s) Take 1 tabl et by mouth BID 02/25/2017 04/28/2017 Inactive Protonix 40 mg table t,delayed release RxNorm: 665020 Tablet(s) Take 1 tabl et by mouth BID 02/19/2017 02/18/2017 Inactive Protonix 40 mg table t,delayed release RxNorm: 342649 Tablet(s) Take 1 tabl et by mouth BID 02/19/2017 02/24/2017 Inactive lisinopril 10 mg tablet RxNorm: 300798 Take 1 tablet by mouth daily 01/29/2017 07/22/2017 Inactive - First Attempt Ref: [id number] hydrocodone 5 mg-linh taminophen 325 mg tablet RxNorm: 726334 1 Tablet(s) PO Q6-8H as needed 01/25/2017 02/24/2017 Inactive simvastatin 40 mg ta blet RxNorm: 123574 Tablet(s) Take 1 tabl et by mouth daily at bedtime 01/03/2017 12/28/2017 Inactive lisinopril 10 mg tablet RxNorm: 864371 Tablet(s) Take 1 tablet by mouth daily 01/03/2017 01/28/2017 In active Protonix 40 mg table t,delayed release RxNorm: 562097 Tablet(s) Take 1 tabl et by mouth daily 12/28/2016 02/18/2017 Inactive hydrocodone 5 mg-linh taminophen 325 mg tablet RxNorm: 026451 1 Tablet(s) PO Q6-8H as needed 12/26/2016 01/24/2017 Inactive Xanax 0.5 mg tablet RxNorm: 061361 1 Tablet(s) PO TID 12/12/2016 03/11/2017 Inactive simvastatin 40 mg ta blet RxNorm: 791931 Tablet(s) Take 1 tabl et by mouth daily at bedtime 11/30/2016 01/02/2017 Inactive simvastatin 40 mg ta blet RxNorm: 600725 Take 1 tablet by mout h daily at bedtime 11/29/2016 11/29/2016 In active - First Attempt Ref: [id number] Protonix 40 mg table t,delayed release RxNorm: 216427 Take 1 tablet by mout h daily 11/27/2016 12/27/2016 In active - First Attempt Ref: [id number] hydrocodone 5 mg-linh taminophen 325 mg tablet RxNorm: 213523 1 Tablet(s) PO Q6-8H as needed 11/26/2016 12/25/2016 Inactive hydrocodone 5 mg-linh taminophen 325 mg tablet RxNorm: 676448 1 Tablet(s) PO Q8 as needed 10/24/2016 11/25/2016 Inactive Xanax 0.5 mg tablet RxNorm: 349599 1 Tablet(s) PO TID 10/09/2016 12/25/2016 Inactive hydrocodone 5 mg-linh taminophen 325 mg tablet RxNorm: 075677 1 Tablet(s) PO Q8 as needed 09/27/2016 10/23/2016 Inactive lisinopril 10 mg tablet RxNorm: 722034 Take 1 tablet by mouth daily 09/25/2016 01/02/2017 Inactive - First Attempt Ref: [id number] Vitamin D2 50,000 un it capsule RxNorm: 248131 1 Capsule(s) PO QW 09/06/2016 No Stop Date Active hydrocodone 5 mg-linh taminophen 325 mg tablet RxNorm: 298861 1 Tablet(s) PO Q8 as needed 08/28/2016 09/26/2016 Inactive Toujeo SoloStar 300 unit/mL (1.5 mL) subcutaneous insulin pen RxNorm: 5880931 25 Unit(s) SQ QHS 08/23/2016 08/29/2017 Inactive dosage increase hydrocodone 5 mg-linh taminophen 325 mg tablet RxNorm: 930831 1 Tablet(s) PO Q8 as needed 07/26/2016 08/27/2016 Inactive Protonix 40 mg table t,delayed release RxNorm: 474137 Take 1 tablet by mout h daily 07/24/2016 11/26/2016 In active - First Attempt Ref: [id number] hydrocodone 5 mg-linh taminophen 325 mg tablet RxNorm: 611945 1 Tablet(s) PO Q8 as needed 06/19/2016 07/21/2016 Inactive Bertlaytonanuj Sanaar 300 unit/mL (1.5 mL) subcutaneous insulin pen RxNorm: 2129329 32 Unit(s) SQ QHS 05/30/2016 08/22/2016 Inactive dosage increase hydrocodone 5 mg-linh taminophen 325 mg tablet RxNorm: 041435 1 Tablet(s) PO Q8 as needed 05/22/2016 06/18/2016 Inactive hydrocodone 5 mg-linh taminophen 325 mg tablet RxNorm: 303298 1 Tablet(s) PO Q8 as needed 04/18/2016 05/17/2016 Inactive Protonix 40 mg table t,delayed release RxNorm: 441272 Take 1 tablet by mout h daily 04/05/2016 07/03/2016 In active - Ref: [id number] metformin 500 mg tablet RxNorm: 532999 Take 1 tablet by mouth daily 04/04/2016 07/02/2016 Inactive - Ref: [id number] Xanax 0.5 mg tablet RxNorm: 946172 1 Tablet(s) PO TID 03/30/2016 09/25/2016 Inactive Xanax 0.5 mg tablet RxNorm: 856539 1 Tablet(s) PO TID 03/23/2016 12/25/2016 Inactive hydrocodone 5 mg-linh taminophen 325 mg tablet RxNorm: 415281 1 Tablet(s) PO Q8 as needed 03/06/2016 04/04/2016 Inactive Cipro 500 mg tablet RxNorm: 868999 1 Tablet(s) PO BID 02/24/2016 03/04/2016 Inactive Miralax 17 gram oral powder packet RxNorm: 290236 1 packet PO every oth er day 01/27/2016 No Stop Date Active hydrocodone 5 mg-linh taminophen 325 mg tablet RxNorm: 826156 1 Tablet(s) PO Q8 as needed 01/27/2016 02/25/2016 Inactive lisinopril 10 mg tablet RxNorm: 367321 1 Tablet(s) PO daily 01/12/2016 09/24/2016 Inactive simvastatin 40 mg ta blet RxNorm: 311022 1 Tablet(s) PO QHS 01/12/2016 11/28/2016 Inactive simvastatin 40 mg ta blet RxNorm: 823531 1 Tablet(s) PO QHS 01/11/2016 01/11/2016 Inactive lisinopril 10 mg tablet RxNorm: 472658 1 Tablet(s) PO daily 01/06/2016 01/11/2016 Inactive simvastatin 40 mg ta blet RxNorm: 518282 1 Tablet(s) PO daily 12/28/2015 01/10/2016 Inactive hydrocodone 5 mg-linh taminophen 325 mg tablet RxNorm: 507459 1 Tablet(s) PO Q8 as needed 12/27/2015 01/26/2016 Inactive Xanax 0.5 mg tablet RxNorm: 485667 1 Tablet(s) PO TID 11/30/2015 03/29/2016 Inactive meclizine 25 mg tablet RxNorm: 309575 1 Tablet(s) PO Q6 PRN TAKE ONE TABLET BY MOUTH EVERY 6 HOURS NEEDED 11/25/2015 02/22/2016 Inactive Toujeo SoloStar 300 unit/mL (1.5 mL) subcutaneous insulin pen RxNorm: 2924604 30 Unit(s) SQ QHS 11/25/2015 05/29/2016 Inactive dosage increase omeprazole 20 mg cap jacquelyn,delayed release RxNorm: 384378 1 Capsule(s) PO daily 10/06/2015 01/26/2016 In active Toujeo SoloStar 300 unit/mL (1.5 mL) subcutaneous insulin pen RxNorm: 8187043 35 Unit(s) SQ QHS 08/02/2015 11/24/2015 Inactive dosage increase Vitamin D2 50,000 un it capsule RxNorm: 172196 1 Capsule(s) PO QW 08/02/2015 09/05/2016 Inactive hydrocodone 5 mg-linh taminophen 325 mg tablet RxNorm: 274554 1 Tablet(s) PO Q8 as needed 07/11/2015 12/26/2015 Inactive Xanax 0.5 mg tablet RxNorm: 332556 1 Tablet(s) PO TID 06/30/2015 06/29/2015 Inactive Xanax 0.5 mg tablet RxNorm: 923021 1 Tablet(s) PO TID 06/30/2015 12/25/2015 Inactive hydrocodone 5 mg-linh taminophen 325 mg tablet RxNorm: 032276 1 Tablet(s) PO Q8 as needed 05/06/2015 07/10/2015 Inactive Symbicort 160 mcg-4. 5 mcg/actuation HFA aerosol inhaler RxNorm: 5903474 INH 04/25/2015 No Stop Date Active Levemir FlexTouch 10 0 unit/mL (3 mL) subcutaneous insulin pen RxNorm: 146121 30 Unit(s) SQ QHS 04/25/2015 11/24/2015 Inactive prednisone 20 mg tablet RxNorm: 940422 1 Tablet(s) PO BID 04/25/2015 04/29/2015 Inactive metformin 500 mg tablet RxNorm: 123148 1 Tablet(s) PO daily 04/25/2015 04/03/2016 Inactive amoxicillin 500 mg c apsule RxNorm: 076376 1 Capsule(s) PO TID 04/14/2015 04/13/2015 Inactive amoxicillin 500 mg c apsule RxNorm: 379820 1 Capsule(s) PO TID a nd recommend probiotic tid (otc) 04/14/2015 04/20/2015 Inactive Kenalog 40 mg/mL bartolome pension for injection RxNorm: 1390257 Milliliter(s) Inj 04/12/2015 04/12/2015 In active hydrocodone 5 mg-linh taminophen 325 mg tablet RxNorm: 551058 1 Tablet(s) PO Q8 as needed 03/30/2015 05/05/2015 Inactive Lantus 100 unit/mL s ubcutaneous solution RxNorm: 741000 25 Unit(s) SQ QPM 03/24/2015 04/25/2015 In active meclizine 25 mg tablet RxNorm: 637793 Tablet(s) TAKE ONE TABLET BY MOUTH EVERY 6 HOURS NEEDED 03/08/2015 04/06/2015 Inactive meclizine 25 mg tablet RxNorm: 140125 TAKE ONE TABLET BY MOUTH EVERY 6 HOURS A S NEEDED 02/25/2015 03/03/2015 Inactive Lantus 100 unit/mL s ubcutaneous solution RxNorm: 004905 20 Unit(s) SQ QPM 02/23/2015 03/23/2015 In active Lantus 100 unit/mL s ubcutaneous solution RxNorm: 843434 25 Unit(s) SQ QPM 02/23/2015 02/22/2015 In active hydrocodone 5 mg-linh taminophen 325 mg tablet RxNorm: 695455 1 Tablet(s) PO Q8 as needed 02/17/2015 03/29/2015 Inactive Xanax 0.5 mg tablet RxNorm: 761313 1 Tablet(s) PO TID 02/03/2015 06/29/2015 Inactive Lantus 100 unit/mL s ubcutaneous solution RxNorm: 984839 20 Unit(s) SQ QPM 12/29/2014 02/22/2015 In active Phenergan 12.5 mg re ctal suppository RxNorm: 950070 1 Suppository RTL Q6 PRN 12/23/2014 No Stop Date Active nausea Kenalog 40 mg/mL bartolome pension for injection RxNorm: 2062479 Milliliter(s) Inj 12/23/2014 12/23/2014 In active prednisone 20 mg tablet RxNorm: 501283 2 Tablet(s) PO daily 12/13/2014 12/17/2014 Inactive prednisone 20 mg tablet RxNorm: 361603 2 Tablet(s) PO daily 12/13/2014 12/12/2014 Inactive meclizine 25 mg tablet RxNorm: 803578 1 Tablet(s) PO Q6 PRN 12/09/2014 02/24/2015 Inactive hydrocodone 5 mg-linh taminophen 325 mg tablet RxNorm: 201683 1 Tablet(s) PO Q8 as needed 12/09/2014 02/16/2015 Inactive Vitamin B-12 1,000 m cg/mL oral drops RxNorm: 8974442 1 Milliliter(s) PO d aily No Start Date Active Alphagan P 0.1 % eye drops RxNorm: 445255 1 Drop(s) OPH BID No Start Date Active aspirin 325 mg table t,delayed release RxNorm: 243917 1 Tablet(s) PO daily No Start Date Active Tricor 145 mg tablet RxNorm: 518119 1 Tablet(s) PO daily No Start Date Active vitamin [id number] B1 oral liquid RxNorm: 1,000 Microgram(s) PO daily No Start Date Active atenolol 50 mg tablet RxNorm: 551305 1 Tablet(s) PO daily No Start Date Active Protonix 40 mg table t,delayed release RxNorm: 179717 1 Tablet(s) PO daily No Start Date 04/04/2016 Inactive glipizide 10 mg tablet RxNorm: 044482 1 Tablet(s) PO BID No Start Date 03/22/2015 Inactive Lantus 100 unit/mL s ubcutaneous solution RxNorm: 201762 15 Unit(s) SQ QPM No Start Date 12/28/2014 Inactive lisinopril 10 mg tablet RxNorm: 504590 1 Tablet(s) PO daily No Start Date 01/05/2016 Inactive Vitamin D2 50,000 un it capsule RxNorm: 049421 1 Capsule(s) PO QW No Start Date 08/01/2015 Inactive Toujeo SoloStar 300 unit/mL (1.5 mL) subcutaneous insulin pen RxNorm: 6356973 30 Unit(s) SQ QHS No Start Date 08/01/2015 Inactive simvastatin 40 mg ta blet RxNorm: 934544 1 Tablet(s) PO daily No Start Date 12/27/2015 Inactive testosterone cypiona te 200 mg/mL intramuscular oil RxNorm: 124830 1 Milliliter(s) IM monthly No Start Date 01/16/2018 Inactive hydrocodone 5 mg-linh taminophen 325 mg tablet RxNorm: 244954 1 Tablet(s) PO Q8 as needed No Start Date 12/08/2014 Inactive metformin 500 mg tablet RxNorm: 039560 1 Tablet(s) PO daily No Start Date 04/24/2015 Inactive omeprazole 20 mg cap jacquelyn,delayed release RxNorm: 962188 1 Capsule(s) PO daily No Start Date 10/05/2015 Inactive Flomax 0.4 mg capsule RxNorm: 294303 1 Capsule(s) PO daily No Start Date 03/23/2015 Inactive Medication Administered Medication Codes Instruc tions Start Date Status testosterone cypionate 200 mg/mL intramuscular oil RxNorm: 4810146 1/2Milliliter 09/02/2018 Active testosterone enanthate 200 mg/mL intramuscular oil RxNorm: 432905 Milliliter 08/21/2018 No longer Active testosterone cypionate 200 mg/mL intramuscular oil RxNorm: 7727668 Milliliter 08/08/2018 No longer Active testosterone cypionate 200 mg/mL intramuscular oil RxNorm: 1853144 1/2Milliliter 07/28/2018 No longer Active testosterone cypionate 200 mg/mL intramuscular oil RxNorm: 040572 Milliliter 07/16/2018 No longer Active testosterone cypionate 200 mg/mL intramuscular oil RxNorm: 127673 Milliliter 07/02/2018 No longer Active testosterone cypionate 200 mg/mL intramuscular oil RxNorm: 508009 Milliliter 06/24/2018 No longer Active testosterone cypionate 200 mg/mL intramuscular oil RxNorm: 604010 Milliliter 06/13/2018 No longer Active testosterone cypionate 200 mg/mL intramuscular oil RxNorm: 395515 Milliliter 06/05/2018 No longer Active testosterone cypionate 200 mg/mL intramuscular oil RxNorm: 599729 Milliliter 05/30/2018 No longer Active testosterone cypionate 200 mg/mL intramuscular oil RxNorm: 977977 Milliliter 05/22/2018 No longer Active testosterone cypionate 200 mg/mL intramuscular oil RxNorm: 488273 /2Milliliter 05/12/2018 No longer Active testosterone cypionate 200 mg/mL intramuscular oil RxNorm: 175818 Milliliter 05/02/2018 No longer Active testosterone cypionate 200 mg/mL intramuscular oil RxNorm: 266010 0.5Milliliter 04/24/2018 No longer Active testosterone cypionate 200 mg/mL intramuscular oil RxNorm: 257271 1/2Milliliter 04/17/2018 No longer Active ketorolac 60 mg/2 mL intramuscular solution RxNorm: 9682749 Milliliter 03/07/2018 No longer Active Kenalog 40 mg/mL suspension for injection RxNorm: 4055939 1.5Milliliter 01/30/2018 No longer Active testosterone cypionate 200 mg/mL intramuscular oil RxNorm: 283415 Milliliter 01/17/2018 No longer Active Kenalog 40 mg/mL suspension for injection RxNorm: 5195100 Milliliter 04/12/2015 No longer Active Kenalog 40 mg/mL suspension for injection RxNorm: 4471060 Milliliter 12/23/2014 No longer Active Immunizations Vaccine [...] Item Item Code Result Date Comp Metabolic Pmc538 NA 139 mEq/L 04/01/2018 Comp Metabolic Bay299 K 4.2 mEq/L 04/01/2018 Comp Metabolic Azs700 CL 102 mEq/L 04/01/2018 Comp Metabolic Ven178 CO2 29.0 mEq/L 04/01/2018 Comp Metabolic Krn908 AN ION GAP 12 04/01/2018 Comp Metabolic Kop590 GL UCOSE 87 mg/dL 04/01/2018 Comp Metabolic Mcx216 Cr eat 1.1 mg/dL 04/01/2018 Comp Metabolic Utl623 eG FR 70 ml/min/1.73m2 04/01 Comp Metabolic Qtw608 BUN 21 mg/dL 04/01/2018 Comp Metabolic Qcb044 B/ C Ratio 19.4 Ratio 04/01/2018 Comp Metabolic Dlo898 CA LCIUM 9.1 mg/dL 04/01/2018 Comp Metabolic Dso891 AL K PHOS 60 U/L 04/01/2018 Comp Metabolic Qcu994 T(SGOT) 15 U/L 04/01/2018 Comp Metabolic Lao998 AL T(SGPT) 18 U/L 04/01/2018 Comp Metabolic Pwa894 BI LI T 0.4 mg/dL 04/01/2018 Comp Metabolic Owv232 AL BUMIN 4.0 g/dL 04/01/2018 Comp Metabolic Qrp379 TP RO 6.5 g/dL 04/01/2018 Comp Metabolic Zns714 GL OB 2.5 g/dL 04/01/2018 Comp Metabolic Lbb407 A/ G Ratio 1.6 Ratio 04/01/2018 Comp Metabolic Xdi226 Os mo 280 mOsmo 04/01/2018 Lipid Ord30 [...] 34.3 pg 04/01/2018 Cbc With Differential Ord2 [place]% 6.0 % 04/01/2018 Cbc With Differential Ord2 [...] 3.25 K/ul 04/01/2018 Cbc With Differential Ord2 [place] ABS# 0.6 K/ul 04/01/2018 Cbc With Differential Ord2 Eos ABS# 0.4 K/ul 04/01/2018 Cbc With Differential Ord2 Baso ABS# 0.0 K/ul 04/01/2018 %Hba1C Qfn836 % HbA1c 64925-1 8.0 % 04/01/2018 %Hba1C Wts589 Gluc Ave 183 mg/dL 04/01/2018 Testosterone Hlo275 Testo 111.3 ng/dL 04/01/2018 Testosterone Vim628 Testo 135.4 ng/dL 01/14/2018 Cbc With Differential [...] 36.0 pg 01/14/2018 Cbc With Differential Ord2 [place]% 6.8 % 01/14/2018 Cbc With Differential Ord2 [...] 2.71 K/ul 01/14/2018 Cbc With Differential Ord2 [place] ABS# 0.8 K/ul 01/14/2018 Cbc With Differential Ord2 Eos ABS# 0.2 K/ul 01/14/2018 Cbc With Differential Ord2 Baso ABS# 0.0 K/ul 01/14/2018 Comp Metabolic Qdn423 NA 134 mEq/L 11/20/2017 Comp Metabolic Hcg585 K 4.4 mEq/L 11/20/2017 Comp Metabolic Srd125 CL 99 mEq/L 11/20/2017 Comp Metabolic Pfc410 CO2 29.0 mEq/L 11/20/2017 Comp Metabolic Gsw760 AN ION GAP 10 11/20/2017 Comp Metabolic Nqz296 GL UCOSE 218 mg/dL 11/20/2017 Comp Metabolic Jqw372 Cr eat 1.0 mg/dL 11/20/2017 Comp Metabolic Lgw504 eG FR 78 ml/min/1.73m2 11/20 Comp Metabolic Lcd761 BUN 13 mg/dL 11/20/2017 Comp Metabolic Ycd870 B/ C Ratio 13.3 Ratio 11/20/2017 Comp Metabolic Xds600 CA LCIUM 9.0 mg/dL 11/20/2017 Comp Metabolic Nil323 AL K PHOS 71 U/L 11/20/2017 Comp Metabolic Ofd442 T(SGOT) 18 U/L 11/20/2017 Comp Metabolic Ltj420 AL T(SGPT) 17 U/L 11/20/2017 Comp Metabolic Sfb482 BI LI T 0.4 mg/dL 11/20/2017 Comp Metabolic Muk108 AL BUMIN 4.1 g/dL 11/20/2017 Comp Metabolic Gas703 TP RO 6.5 g/dL 11/20/2017 Comp Metabolic Eel238 GL OB 2.4 g/dL 11/20/2017 Comp Metabolic Bqp793 A/ G Ratio 1.8 Ratio 11/20/2017 Comp Metabolic Ykd059 Os mo 275 mOsmo 11/20/2017 Cbc With [...] 35.2 pg 11/20/2017 Cbc With Differential Ord2 [place]% 7.2 % 11/20/2017 Cbc With Differential Ord2 [...] 3.34 K/ul 11/20/2017 Cbc With Differential Ord2 [place] ABS# 0.6 K/ul 11/20/2017 Cbc With Differential Ord2 Eos ABS# 0.3 K/ul 11/20/2017 Cbc With Differential Ord2 Baso ABS# 0.0 K/ul 11/20/2017 Vitamin D 25 Oh Flv6670 VITAMIN D, 25 HYDROXY 43.72 ng/mL 11/20/2017 %Hba1C Vdf521 % HbA1c 43997-0 7.4 % 11/20/2017 %Hba1C Bme501 Gluc Ave 166 mg/dL 11/20/2017 %Hba1C Dkv355 % HbA1c 21639-2 7.2 % 08/20/2017 %Hba1C Sjl703 Gluc Ave 160 mg/dL 08/20/2017 Lipid Ord30 [...] 34.7 pg 08/20/2017 Cbc With Differential Ord2 [place]% 7.6 % 08/20/2017 Cbc With Differential Ord2 [...] 2.42 K/ul 08/20/2017 Cbc With Differential Ord2 [place] ABS# 0.6 K/ul 08/20/2017 Cbc With Differential Ord2 Eos ABS# 0.3 K/ul 08/20/2017 Cbc With Differential Ord2 Baso ABS# 0.0 K/ul 08/20/2017 Tsh Ord6 hTSH II 2.27 uIU/mL 08/20/2017 Comp Metabolic Ebs134 NA 138 mEq/L 08/20/2017 Comp Metabolic Axd258 K 4.3 mEq/L 08/20/2017 Comp Metabolic Zss209 CL 102 mEq/L 08/20/2017 Comp Metabolic Vds811 CO2 29.0 mEq/L 08/20/2017 Comp Metabolic Fkd082 AN ION GAP 11 08/20/2017 Comp Metabolic Ywz226 GL UCOSE 89 mg/dL 08/20/2017 Comp Metabolic Xhe427 Cr eat 1.0 mg/dL 08/20/2017 Comp Metabolic Mav488 eG FR 80 ml/min/1.73m2 08/20 Comp Metabolic Cty057 BUN 13 mg/dL 08/20/2017 Comp Metabolic Lyl628 B/ C Ratio 13.5 Ratio 08/20/2017 Comp Metabolic Xqu417 CA LCIUM 9.2 mg/dL 08/20/2017 Comp Metabolic Utt596 AL K PHOS 69 U/L 08/20/2017 Comp Metabolic Okj306 T(SGOT) 18 U/L 08/20/2017 Comp Metabolic Dlz372 AL T(SGPT) 19 U/L 08/20/2017 Comp Metabolic Rzm700 BI LI T 0.6 mg/dL 08/20/2017 Comp Metabolic Oia503 AL BUMIN 4.0 g/dL 08/20/2017 Comp Metabolic Dvl730 TP RO 6.6 g/dL 08/20/2017 Comp Metabolic Ciy162 GL OB 2.6 g/dL 08/20/2017 Comp Metabolic Tfo404 A/ G Ratio 1.5 Ratio 08/20/2017 Comp Metabolic Vvd893 Os mo 275 mOsmo 08/20/2017 Vitamin D 25 Oh Icl5426 VITAMIN D, 25 HYDROXY 30.96 ng/mL 08/20/2017 B12 Rsw498 B12 >1500.00 pg/ml 02/22/2017 Cbc With Differential [...] 35.7 pg 02/20/2017 Cbc With Differential Ord2 [place]% 6.3 % 02/20/2017 Cbc With Differential Ord2 [...] 3.19 K/ul 02/20/2017 Cbc With Differential Ord2 [place] ABS# 0.5 K/ul 02/20/2017 Cbc With Differential Ord2 Eos ABS# 0.4 K/ul 02/20/2017 Cbc With Differential Ord2 Baso ABS# 0.0 K/ul 02/20/2017 Comp Metabolic Cyi329 NA 138 mEq/L 02/20/2017 Comp Metabolic Bch187 K 4.5 mEq/L 02/20/2017 Comp Metabolic Inz162 CL 101 mEq/L 02/20/2017 Comp Metabolic Mxc807 CO2 31.0 mEq/L 02/20/2017 Comp Metabolic Wqe034 AN ION GAP 11 02/20/2017 Comp Metabolic Mdb154 GL UCOSE 120 mg/dL 02/20/2017 Comp Metabolic Old798 Cr eat 0.9 mg/dL 02/20/2017 Comp Metabolic Vok834 eG FR 83 ml/min/1.73m2 02/20 Comp Metabolic Bkg886 BUN 15 mg/dL 02/20/2017 Comp Metabolic Pvv307 B/ C Ratio 16.1 Ratio 02/20/2017 Comp Metabolic Tro955 CA LCIUM 9.1 mg/dL 02/20/2017 Comp Metabolic Tkq579 AL K PHOS 67 U/L 02/20/2017 Comp Metabolic Tnx203 T(SGOT) 15 U/L 02/20/2017 Comp Metabolic Gly522 AL T(SGPT) 16 U/L 02/20/2017 Comp Metabolic Lxl761 BI LI T 0.5 mg/dL 02/20/2017 Comp Metabolic Bjg711 AL BUMIN 4.0 g/dL 02/20/2017 Comp Metabolic Gqa055 TP RO 6.4 g/dL 02/20/2017 Comp Metabolic Jtd390 GL OB 2.4 g/dL 02/20/2017 Comp Metabolic War329 A/ G Ratio 1.7 Ratio 02/20/2017 Comp Metabolic Viq015 Os mo 278 mOsmo 02/20/2017 Tsh Ord6 hTSH II 2.05 uIU/mL 02/20/2017 %Hba1C Nnp622 % HbA1c 98952-2 7.6 % 02/20/2017 %Hba1C Pof979 Gluc Ave 171 mg/dL 02/20/2017 Vitamin D 25 Oh Nbt3061 VITAMIN D, 25 HYDROXY 44.40 ng/mL 12/21/2016 Comp Metabolic Oeo767 NA 131 mEq/L 12/21/2016 Comp Metabolic Lfp094 K 4.2 mEq/L 12/21/2016 Comp Metabolic Pch061 CL 97 mEq/L 12/21/2016 Comp Metabolic Nhq265 CO2 27.0 mEq/L 12/21/2016 Comp Metabolic Uxh865 AN ION GAP 11 12/21/2016 Comp Metabolic Icx132 GL UCOSE 266 mg/dL 12/21/2016 Comp Metabolic Ski608 Cr eat 0.9 mg/dL 12/21/2016 Comp Metabolic Ptf988 eG FR 88 ml/min/1.73m2 12/21 Comp Metabolic Diy886 BUN 12 mg/dL 12/21/2016 Comp Metabolic Jci488 B/ C Ratio 13.6 Ratio 12/21/2016 Comp Metabolic Exc438 CA LCIUM 8.6 mg/dL 12/21/2016 Comp Metabolic Ijw485 AL K PHOS 69 U/L 12/21/2016 Comp Metabolic Ajq825 T(SGOT) 15 U/L 12/21/2016 Comp Metabolic Hsa891 AL T(SGPT) 14 U/L 12/21/2016 Comp Metabolic Yzf572 BI LI T 0.3 mg/dL 12/21/2016 Comp Metabolic Geu181 AL BUMIN 3.7 g/dL 12/21/2016 Comp Metabolic Cla562 TP RO 5.9 g/dL 12/21/2016 Comp Metabolic Ovw499 GL OB 2.2 g/dL 12/21/2016 Comp Metabolic Fum672 A/ G Ratio 1.7 Ratio 12/21/2016 Comp Metabolic Fgz399 Os mo 272 mOsmo 12/21/2016 Cbc With [...] 34.6 pg 12/21/2016 Cbc With Differential Ord2 [place]% 6.9 % 12/21/2016 Cbc With Differential Ord2 [...] 2.05 K/ul 12/21/2016 Cbc With Differential Ord2 [place] ABS# 0.4 K/ul 12/21/2016 Cbc With Differential Ord2 Eos ABS# 0.2 K/ul 12/21/2016 Cbc With Differential Ord2 Baso ABS# 0.0 K/ul 12/21/2016 Comp Metabolic Ckb033 NA 138 mEq/L 09/03/2016 Comp Metabolic Yvp434 K 4.5 mEq/L 09/03/2016 Comp Metabolic Htb215 CL 102 mEq/L 09/03/2016 Comp Metabolic Ncr938 CO2 30.0 mEq/L 09/03/2016 Comp Metabolic Geq835 AN ION GAP 11 09/03/2016 Comp Metabolic Vuy023 GL UCOSE 113 mg/dL 09/03/2016 Comp Metabolic Lbw996 Cr eat 1.0 mg/dL 09/03/2016 Comp Metabolic Zdc631 eG FR 81 ml/min/1.73m2 09/03 Comp Metabolic Uzp581 BUN 10 mg/dL 09/03/2016 Comp Metabolic Jrm829 B/ C Ratio 10.5 Ratio 09/03/2016 Comp Metabolic Ivm919 CA LCIUM 9.1 mg/dL 09/03/2016 Comp Metabolic Qlv077 AL K PHOS 71 U/L 09/03/2016 Comp Metabolic Jjo842 T(SGOT) 18 U/L 09/03/2016 Comp Metabolic Ipc314 AL T(SGPT) 17 U/L 09/03/2016 Comp Metabolic Cmj160 BI LI T 0.6 mg/dL 09/03/2016 Comp Metabolic Gjg422 AL BUMIN 4.1 g/dL 09/03/2016 Comp Metabolic Xvt317 TP RO 6.4 g/dL 09/03/2016 Comp Metabolic Tff714 GL OB 2.3 g/dL 09/03/2016 Comp Metabolic Mtd895 A/ G Ratio 1.8 Ratio 09/03/2016 Comp Metabolic Yfq852 Os mo 276 mOsmo 09/03/2016 Vitamin D 25 Oh Jvo1375 VITAMIN D, 25 HYDROXY 28.23 ng/mL 09/03/2016 [...] 34.4 pg 09/03/2016 Cbc With Differential Ord2 [place]% 8.9 % 09/03/2016 Cbc With Differential Ord2 [...] 3.34 K/ul 09/03/2016 Cbc With Differential Ord2 [place] ABS# 0.7 K/ul 09/03/2016 Cbc With Differential Ord2 Eos ABS# 0.4 K/ul 09/03/2016 Cbc With Differential Ord2 Baso ABS# 0.0 K/ul 09/03/2016 Lipid Ord30 CHOL 120 mg/dL 09/03/2016 Lipid Ord30 HDL 33.0 mg/dl 09/03/2016 Lipid Ord30 TRIG 161 mg/dL 09/03/2016 Lipid Ord30 LDL 55 mg/dL 09/03/2016 Lipid Ord30 C/HDL 3.6 Ratio 09/03/2016 %Hba1C Egf998 % HbA1c 96923-7 7.5 % 09/03/2016 %Hba1C Itg855 Gluc Ave 169 mg/dL 09/03/2016 Tsh Ord6 hTSH II 1.50 uIU/mL 05/23/2016 %Hba1C Imc335 % HbA1c 78083-3 7.6 % 05/23/2016 %Hba1C Ldb591 Gluc Ave 171 mg/dL 05/23/2016 Comp Metabolic Cks762 NA 135 mEq/L 05/23/2016 Comp Metabolic Zax655 K 4.4 mEq/L 05/23/2016 Comp Metabolic Obi576 CL 99 mEq/L 05/23/2016 Comp Metabolic Lcn967 CO2 28.0 mEq/L 05/23/2016 Comp Metabolic Kgu638 AN ION GAP 12 05/23/2016 Comp Metabolic Tku460 GL UCOSE 257 mg/dL 05/23/2016 Comp Metabolic Ecr119 Cr eat 0.8 mg/dL 05/23/2016 Comp Metabolic Iei833 eG FR 95 ml/min/1.73m2 05/23 Comp Metabolic Vob813 BUN 11 mg/dL 05/23/2016 Comp Metabolic Akj102 B/ C Ratio 13.3 Ratio 05/23/2016 Comp Metabolic Xvn297 CA LCIUM 9.0 mg/dL 05/23/2016 Comp Metabolic Rtp941 AL K PHOS 82 U/L 05/23/2016 Comp Metabolic Dmg700 T(SGOT) 21 U/L 05/23/2016 Comp Metabolic Eew524 AL T(SGPT) 20 U/L 05/23/2016 Comp Metabolic Aog912 BI LI T 0.3 mg/dL 05/23/2016 Comp Metabolic Yud097 AL BUMIN 4.0 g/dL 05/23/2016 Comp Metabolic Own025 TP RO 6.4 g/dL 05/23/2016 Comp Metabolic Frn333 GL OB 2.4 g/dL 05/23/2016 Comp Metabolic Rci315 A/ G Ratio 1.6 Ratio 05/23/2016 Comp Metabolic Yvv357 Os mo 278 mOsmo 05/23/2016 Cbc With [...] 34.5 pg 05/23/2016 Cbc With Differential Ord2 [place]% 6.1 % 05/23/2016 Cbc With Differential Ord2 [...] 2.38 K/ul 05/23/2016 Cbc With Differential Ord2 [place] ABS# 0.4 K/ul 05/23/2016 Cbc With Differential Ord2 Eos ABS# 0.2 K/ul 05/23/2016 Cbc With Differential Ord2 Baso ABS# 0.0 K/ul 05/23/2016 B12 Cbd630 B12 597.00 pg/ml 05/23/2016 Metabolic Ord15 NA [...] 0.92 uIU/mL 07/29/2015 Vitamin D 25 Oh Hvw6468 VITAMIN D, 25 HYDROXY 26.93 ng/mL 07/29/2015 %Hba1C Nsf360 % HbA1c 23303-8 8.8 % 07/29/2015 %Hba1C Aib914 Gluc Ave 206 mg/dL 07/29/2015 Cbc With [...] Ord2 RDW 14.9 % 07/29/2015 Comp Metabolic Llc499 NA 138 mEq/L 07/29/2015 Comp Metabolic Pmd219 K 4.4 mEq/L 07/29/2015 Comp Metabolic Ldr803 CL 102 mEq/L 07/29/2015 Comp Metabolic Avd826 CO2 28.0 mEq/L 07/29/2015 Comp Metabolic Anl519 AN ION GAP 12 07/29/2015 Comp Metabolic Yjj656 GL UCOSE 261 mg/dL 07/29/2015 Comp Metabolic Bjo857 Cr eat 1.0 mg/dL 07/29/2015 Comp Metabolic Mtn346 eG FR 77 ml/min/1.73m2 07/29 Comp Metabolic Wcl778 BUN 13 mg/dL 07/29/2015 Comp Metabolic Puk139 B/ C Ratio 13.0 Ratio 07/29/2015 Comp Metabolic Mgs739 CA LCIUM 9.1 mg/dL 07/29/2015 Comp Metabolic Xbo309 AL K PHOS 64 U/L 07/29/2015 Comp Metabolic Kdk342 T(SGOT) 20 U/L 07/29/2015 Comp Metabolic Dws178 AL T(SGPT) 22 U/L 07/29/2015 Comp Metabolic Jyb816 BI LI T 0.4 mg/dL 07/29/2015 Comp Metabolic Jow264 AL BUMIN 4.0 g/dL 07/29/2015 Comp Metabolic Cra614 TP RO 6.1 g/dL 07/29/2015 Comp Metabolic Rko704 GL OB 2.1 g/dL 07/29/2015 Comp Metabolic Hoo418 A/ G Ratio 1.9 Ratio 07/29/2015 Comp Metabolic Jpv702 Os mo 285 mOsmo 07/29/2015 Cbc With [...] Ord2 RDW 13.1 % 05/06/2015 Comp Metabolic Rwr159 NA 134 mEq/L 05/06/2015 Comp Metabolic Wic988 K 4.4 mEq/L 05/06/2015 Comp Metabolic Cne798 CL 98 mEq/L 05/06/2015 Comp Metabolic Djv117 CO2 29.0 mEq/L 05/06/2015 Comp Metabolic Rlx259 AN ION GAP 11 05/06/2015 Comp Metabolic Xmv514 GL UCOSE 321 mg/dL 05/06/2015 Comp Metabolic Eud250 Cr eat 1.0 mg/dL 05/06/2015 Comp Metabolic Qqv039 eG FR 78 ml/min/1.73m2 05/06 Comp Metabolic Oga898 BUN 20 mg/dL 05/06/2015 Comp Metabolic Pmm567 B/ C Ratio 20.4 Ratio 05/06/2015 Comp Metabolic Zum892 CA LCIUM 9.5 mg/dL 05/06/2015 Comp Metabolic Rtg376 AL K PHOS 62 U/L 05/06/2015 Comp Metabolic Riq193 T(SGOT) 21 U/L 05/06/2015 Comp Metabolic Grg150 AL T(SGPT) 37 U/L 05/06/2015 Comp Metabolic Hvs388 BI LI T 0.4 mg/dL 05/06/2015 Comp Metabolic Wko180 AL BUMIN 3.8 g/dL 05/06/2015 Comp Metabolic Apv752 TP RO 6.1 g/dL 05/06/2015 Comp Metabolic Qyo538 GL OB 2.3 g/dL 05/06/2015 Comp Metabolic Ibq052 A/ G Ratio 1.7 Ratio 05/06/2015 Comp Metabolic Dej115 Os mo 283 mOsmo 05/06/2015 Tsh Ord6 hTSH II 1.65 uIU/mL 02/18/2015 B12 Gqp451 B12 605.00 pg/ml 02/18/2015 %Hba1C Xjf887 % HbA1c 46750-1 8.3 % 02/18/2015 %Hba1C Mcs328 Gluc Ave 192 mg/dL 02/18/2015 Cbc With [...] Ord2 RDW 13.9 % 02/17/2015 Comp Metabolic Mhb010 NA 137 mEq/L 02/17/2015 Comp Metabolic Pgk100 K 4.4 mEq/L 02/17/2015 Comp Metabolic Eex963 CL 100 mEq/L 02/17/2015 Comp Metabolic Etw998 CO2 31.0 mEq/L 02/17/2015 Comp Metabolic Mud591 AN ION GAP 10 02/17/2015 Comp Metabolic Zoc372 GL UCOSE 307 mg/dL 02/17/2015 Comp Metabolic Nui789 Cr eat 1.0 mg/dL 02/17/2015 Comp Metabolic Xva892 eG FR 74 ml/min/1.73m2 02/17 Comp Metabolic Fjg885 BUN 22 mg/dL 02/17/2015 Comp Metabolic Xsl159 B/ C Ratio 21.4 Ratio 02/17/2015 Comp Metabolic Xmd364 CA LCIUM 9.5 mg/dL 02/17/2015 Comp Metabolic Idj795 AL K PHOS 78 U/L 02/17/2015 Comp Metabolic Dpu723 T(SGOT) 18 U/L 02/17/2015 Comp Metabolic Cei548 AL T(SGPT) 32 U/L 02/17/2015 Comp Metabolic Tdu767 BI LI T 0.5 mg/dL 02/17/2015 Comp Metabolic Pqr104 AL BUMIN 4.3 g/dL 02/17/2015 Comp Metabolic Dnl407 TP RO 6.7 g/dL 02/17/2015 Comp Metabolic Xps647 GL OB 2.4 g/dL 02/17/2015 Comp Metabolic Ufh317 A/ G Ratio 1.8 Ratio 02/17/2015 Comp Metabolic Jyx739 Os mo 289 mOsmo 02/17/2015 Review of [...] Procedure Codes Date THER/PROPH/DIAG INJ SC/IM CPT-4: 73429 09/02/2018 THER/PROPH/DIAG INJ SC/IM CPT-4: 13071 08/21/2018 THER/PROPH/DIAG INJ SC/IM CPT-4: 92051 08/08/2018 THER/PROPH/DIAG INJ SC/IM CPT-4: 26095 07/28/2018 THER/PROPH/DIAG INJ SC/IM CPT-4: 74495 07/16/2018 THER/PROPH/DIAG INJ SC/IM CPT-4: 75053 07/02/2018 PPPS, SUBSEQ VISIT CPT- 4: G0439 06/30/2018 THER/PROPH/DIAG INJ SC/IM CPT-4: 66784 06/24/2018 THER/PROPH/DIAG INJ SC/IM CPT-4: 95125 06/13/2018 ADMIN INFLUENZA VIRU S VAC CPT-4: G0008 06/06/2018 FLU VACC PRSV FREE I NC ANTIG CPT-4: 13616 06/06/2018 THER/PROPH/DIAG INJ SC/IM CPT-4: 16168 06/05/2018 THER/PROPH/DIAG INJ SC/IM CPT-4: 35272 05/30/2018 THER/PROPH/DIAG INJ SC/IM CPT-4: 80271 05/22/2018 THER/PROPH/DIAG INJ SC/IM CPT-4: 51701 05/12/2018 THER/PROPH/DIAG INJ SC/IM CPT-4: 94025 05/02/2018 THER/PROPH/DIAG INJ SC/IM CPT-4: 70084 04/24/2018 THER/PROPH/DIAG INJ SC/IM CPT-4: 32624 04/17/2018 KETOROLAC TROMETHAMI NE INJ CPT-4: J1885 03/07/2018 URINALYSIS NONAUTO W /O SCOPE CPT-4: 80953 03/07/2018 THER/PROPH/DIAG INJ SC/IM CPT-4: 60062 02/20/2018 TRIAMCINOLONE ACET I [place] NOS CPT-4: J3301 01/30/2018 THER/PROPH/DIAG INJ SC/IM CPT-4: 81477 01/17/2018 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 3-[address]: 808029027 CPT-4: G0436 04/25/2017 ADMIN INFLUENZA VIRU S VAC CPT-4: G0008 04/25/2017 ADMIN PNEUMOCOCCAL V ACCINE SNOMED CT: 51565569 CPT-4: G0009 04/25/2017 PNEUMOCOCCAL VACC [address]: 61982588 CPT-4: 42803 04/25/2017 FLU VACC PRSV FREE I NC ANTIG CPT-4: 66595 04/25/2017 ADMIN INFLUENZA VIRU S VAC CPT-4: G0008 05/22/2016 FLU VACC 4 TELLY 3 YRS PLUS IM Formatting Model/CDA Sections, Assigned to/Angela Clemons SNOMED CT: 79237568 CPT-4: 51568Xppkyym 05/22/2016 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 3-[address]: 362863057 CPT-4: G0436 11/25/2015 URINALYSIS NONAUTO W /O SCOPE CPT-4: 81604 05/09/2015 TRIAMCINOLONE ACET I [place] NOS CPT-4: J3301 04/12/2015 DESTRUCT PREMALG LESION CPT-4: 50205 03/07/2015 DESTRUCT PREMALG LES 2-14 CPT-4: 21579 03/07/2015 REMOVE IMPACTED EAR WAX UNI CPT-4: 34037 12/31/2014 THER/PROPH/DIAG INJ SC/IM CPT-4: 13548 12/23/2014 TRIAMCINOLONE ACET I [place] NOS CPT-4: J3301 12/23/2014 Vital Signs Date Vital 09/02/2018 Blood Pressure 1: 140/80 Code: 8480-6 BMI: 21.2 Code: 46730-1 Heart Rate 1: 68 bpm Height: 5'11" SpO2: 97% Weight: 152 lbs 06/30/2018 BMI: 21.8 Code: 80433-4 Height: 5'11" Weight: 156 lbs 06/06/2018 Blood Pressure 1: 128/76 Code: 8480-6 BMI: 22.0 Code: 21091-9 Heart Rate 1: 81 bpm Height: 5'11" SpO2: 92% Weight: 158 lbs 04/04/2018 Blood Pressure 1: 124/70 Code: 8480-6 BMI: 20.8 Code: 35491-5 Heart Rate 1: 65 bpm Height: 5'11" SpO2: 95% Weight: 149 lbs 03/07/2018 Blood Pressure 1: 148/70 Code: 8480-6 BMI: 21.2 Code: 98331-8 Heart Rate 1: 66 bpm Height: 5'11" SpO2: 94% Weight: 152 lbs 02/20/2018 Blood Pressure 1: 134/58 Code: 8480-6 BMI: 20.5 Code: 25699-9 Heart Rate 1: 61 bpm Height: 5'11" SpO2: 92% Weight: 147 lbs 01/30/2018 Blood Pressure 1: 158/68 Code: 8480-6 BMI: 21.5 Code: 89051-4 Heart Rate 1: 71 bpm Height: 5'11" SpO2: 92% Weight: 154 lbs 01/14/2018 Blood Pressure 1: 156/70 Code: 8480-6 Height: Weight: 01/13/2018 Blood Pressure 1: 148/62 Code: 8480-6 BMI: 20.9 Code: 42304-5 Heart Rate 1: 54 bpm Height: 5'11" SpO2: 97% Weight: 150 lbs 11/19/2017 Blood Pressure 1: 150/60 Code: 8480-6 BMI: 21.8 Code: 28981-9 Heart Rate 1: 63 bpm Height: 5'11" SpO2: 98% Weight: 156 lbs 10/02/2017 Blood Pressure 1: 168/60 Code: 8480-6 BMI: 21.9 Code: 11681-3 Heart Rate 1: 52 bpm Height: 5'11" SpO2: 97% Weight: 157 lbs 07/23/2017 Blood Pressure 1: 170/70 Code: 8480-6 BMI: 21.8 Code: 82257-1 Heart Rate 1: 65 bpm Height: 5'11" SpO2: 98% Weight: 156 lbs 04/25/2017 Blood Pressure 1: 138/60 Code: 8480-6 BMI: 21.6 Code: 31589-9 Heart Rate 1: 55 bpm Height: 5'11" SpO2: 93% Weight: 155 lbs 02/19/2017 Blood Pressure 1: 138/64 Code: 8480-6 BMI: 21.3 Code: 94850-6 Heart Rate 1: 52 bpm Height: 5'11" SpO2: 96% Weight: 152 lbs 8 oz 01/21/2017 Blood Pressure 1: 160/68 Code: 8480-6 BMI: 21.3 Code: 46078-8 Heart Rate 1: 62 bpm Height: 5'11" SpO2: 96% Weight: 153 lbs 12/20/2016 Blood Pressure 1: 124/66 Code: 8480-6 BMI: 21.5 Code: 66323-5 Height: 5'11" Weight: 154 lbs 08/23/2016 Blood Pressure 1: 142/52 Code: 8480-6 BMI: 21.2 Code: 06972-9 Heart Rate 1: 54 bpm Height: 5'11" SpO2: 96% Weight: 152 lbs 05/22/2016 Blood Pressure 1: 130/76 Code: 8480-6 BMI: 21.5 Code: 39209-8 Heart Rate 1: 78 bpm Height: 5'11" SpO2: 92% Weight: 154 lbs 02/24/2016 Blood Pressure 1: 128/80 Code: 8480-6 BMI: 21.2 Code: 66684-4 Heart Rate 1: 74 bpm Height: 5'11" SpO2: 96% Weight: 152 lbs 01/27/2016 Blood Pressure 1: 144/60 Code: 8480-6 BMI: 21.2 Code: 37464-7 Heart Rate 1: 74 bpm Height: 5'11" SpO2: 97% Weight: 152 lbs 11/25/2015 Blood Pressure 1: 110/52 Code: 8480-6 BMI: 21.9 Code: 27137-5 Heart Rate 1: 65 bpm Height: 5'11" SpO2: 92% Weight: 157 lbs 07/28/2015 Blood Pressure 1: 138/62 Code: 8480-6 BMI: 21.8 Code: 01434-9 Heart Rate 1: 63 bpm Height: 5'11" SpO2: 91% Weight: 156 lbs 05/26/2015 Blood Pressure 1: 120/58 Code: 8480-6 BMI: 21.5 Code: 41747-5 Heart Rate 1: 99 bpm Height: 5'11" SpO2: 96% Weight: 154 lbs 05/06/2015 Blood Pressure 1: 120/58 Code: 8480-6 BMI: 21.2 Code: 31643-3 Heart Rate 1: 66 bpm Height: 5'11" SpO2: 96% Weight: 152 lbs 04/25/2015 Blood Pressure 1: 136/62 Code: 8480-6 BMI: 21.2 Code: 61568-7 Heart Rate 1: 63 bpm Height: 5'11" SpO2: 97% Weight: 152 lbs 04/12/2015 Blood Pressure 1: 160/58 Code: 8480-6 BMI: 21.6 Code: 47272-6 Heart Rate 1: 62 bpm Height: 5'11" Weight: 155 lbs 03/24/2015 Blood Pressure 1: 138/68 Code: 8480-6 BMI: 22.0 Code: 76311-1 Heart Rate 1: 65 bpm Height: 5'11" SpO2: 96% Weight: 158 lbs 03/07/2015 Blood Pressure 1: 116/52 Code: 8480-6 BMI: 22.2 Code: 83545-6 Heart Rate 1: 64 bpm Height: 5'11" SpO2: 97% Weight: 159 lbs 02/17/2015 Blood Pressure 1: 148/58 Code: 8480-6 BMI: 21.3 Code: 99399-0 Heart Rate 1: 63 bpm Height: 5'11" SpO2: 97% Weight: 153 lbs 12/31/2014 Blood Pressure 1: 100/60 Code: 8480-6 BMI: 21.8 Code: 03295-6 Heart Rate 1: 68 bpm Height: 5'11" Weight: 156 lbs 12/23/2014 Blood Pressure 1: 148/64 Code: 8480-6 BMI: 21.9 Code: 52387-1 Heart Rate 1: 64 bpm Height: 5'11" [...] Encounters Encounter Performer Loca tion Codes Date ([id number]) [id number] EST. 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 P ATIENT, LEVEL IV Diagnosis: Cellulitis of face[ICD10: L03.211] Diagnosis: Type 2 diabetes mellitus without complications[ICD10: E11.9] Diagnosis: Essential (primary) hypertension[ICD10: I10] Diagnosis: Encounter for immunization[ICD10: Z23] Karmen Ash MD, [facility] CPT-4: 58328 06/06/2018 ([id number]) 55731 EST. 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 P ATIENT, LEVEL III Diagnosis: Low back pain[ICD10: M54.5] Diagnosis: Dysuria[ICD10: R30.0] [facility] CPT-4: 80258 03/07/2018 ([id number]) 09774 EST. 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 P ATIENT, LEVEL III Diagnosis: Chronic obstructive pulmonary disease with (acute) exacerbation[ICD10: J44.1] Karmen Ash MD, [facility] CPT-4: 05494 01/30/2018 [id number] EST. PATIENT, LEVEL II Diagnosis: Insect bite (nonvenomous), left lower leg, initial encounter[ICD10: S80.862A] Karmen Ash MD, [facility] CPT-4: 86915 01/14/2018 ([id number]) 87089 EST. P ATIENT, LEVEL IV Diagnosis: Type 2 diabetes mellitus with hyperglycemia[ICD10: E11.65] Diagnosis: Chronic obstructive pulmonary disease, unspecified[ICD10: J44.9] Diagnosis: Other fatigue[ICD10: R53.83] Karmen Ash MD, [facility] CPT- 4: 92191 01/13/2018 ([id number]) 35442 EST. P ATIENT, LEVEL IV Diagnosis: Type 2 diabetes mellitus with hyperglycemia[ICD10: E11.65] Diagnosis: Vitamin D deficiency, unspecified[ICD10: E55.9] Diagnosis: Essential (primary) hypertension[ICD10: I10] Diagnosis: Abdominal distension (gaseous)[ICD10: R14.0] Diagnosis: Drug induced constipation[ICD10: K59.03] Karmen Ash MD, [facility] CPT-4: 33963 11/19/2017 [id number] EST. PATIENT, LEVEL IV Diagnosis: Low back pain[ICD10: M54.5] Diagnosis: Chronic obstructive pulmonary disease, unspecified[ICD10: J44.9] Brunilda Ash MD, [facility] CPT-4: 64792 10/02/2017 ([id number]) 86868 EST. P ATIENT, LEVEL IV Diagnosis: Essential (primary) hypertension[ICD10: I10] Diagnosis: Type 2 diabetes mellitus with hyperglycemia[ICD10: E11.65] Diagnosis: Vitamin D deficiency, unspecified[ICD10: E55.9] Diagnosis: Mixed hyperlipidemia[ICD10: E78.2] [facility] CPT-4: 01849 07/23/2017 ([id number]) 11633 EST. P ATIENT, LEVEL IV Diagnosis: Essential (primary) hypertension[ICD10: I10] Diagnosis: Type 2 diabetes mellitus with hyperglycemia[ICD10: E11.65] Diagnosis: Chronic obstructive pulmonary disease, unspecified[ICD10: J44.9] Diagnosis: Nicotine dependence, unspecified, uncomplicated[ICD10: F17.200] Diagnosis: Encounter for immunization[ICD10: Z23] Karmen Ash MD, [facility] CPT-4: 84145 04/25/2017 ([id number]) 16665 EST. P ATIENT, LEVEL IV Diagnosis: Type 2 diabetes mellitus with hyperglycemia[ICD10: E11.65] Diagnosis: Essential (primary) hypertension[ICD10: I10] Diagnosis: Anemia, unspecified[ICD10: D64.9] Karmen Ash MD, [facility] CPT- 4: 09716 02/19/2017 ([id number]) 34495 EST. P ATIENT, LEVEL IV Diagnosis: Slow transit constipation[ICD10: K59.01] Diagnosis: Gastro-esophageal reflux disease without esophagitis[ICD10: K21.9] Diagnosis: Essential (primary) hypertension[ICD10: I10] Karmen Ash MD, [facility] CPT-4: 46498 01/21/2017 ([id number]) 50658 EST. P ATIENT, LEVEL IV Diagnosis: Type 2 diabetes mellitus with hyperglycemia[ICD10: E11.65] Diagnosis: Vitamin D deficiency, unspecified[ICD10: E55.9] Diagnosis: Essential (primary) hypertension[ICD10: I10] Diagnosis: Chronic obstructive pulmonary disease, unspecified[ICD10: J44.9] Karmen Ash MD, [facility] CPT-4: 02089 12/20/2016 ([id number]) 91813 EST. P ATIENT, LEVEL IV Diagnosis: Type 2 diabetes mellitus with hyperglycemia[ICD10: E11.65] Diagnosis: Essential (primary) hypertension[ICD10: I10] Diagnosis: Mixed hyperlipidemia[ICD10: E78.2] Diagnosis: Vitamin D deficiency, unspecified[ICD10: E55.9] Karmen Ash MD, [facility] CPT-4: 30768 08/23/2016 ([id number]) 27097 EST. P ATIENT, LEVEL IV Diagnosis: Type 2 diabetes mellitus with hyperglycemia[ICD10: E11.65] Diagnosis: Essential (primary) hypertension[ICD10: I10] Diagnosis: Chronic obstructive pulmonary disease, unspecified[ICD10: J44.9] Karmen Ash MD, [facility] CPT-4: 83450 05/22/2016 ([id number]) 92950 EST. P ATIENT, LEVEL III Diagnosis: Dysuria[ICD10: R30.0] Diagnosis: Essential (primary) hypertension[ICD10: I10] Karmen Ash MD, [facility] CPT-4: 76816 02/24/2016 ([id number]) 75871 EST. P ATIENT, LEVEL IV Diagnosis: Gastro-esophageal reflux disease without esophagitis[ICD10: K21.9] Diagnosis: Slow transit constipation[ICD10: K59.01] Diagnosis: Type 2 diabetes mellitus with hyperglycemia[ICD10: E11.65] Karmen Ash MD, [facility] CPT-4: 00852 01/27/2016 ([id number]) 62605 EST. P ATIENT, LEVEL IV Diagnosis: Essential (primary) hypertension[ICD10: I10] Diagnosis: Type 2 diabetes mellitus with hyperglycemia[ICD10: E11.65] Diagnosis: Vitamin D deficiency, unspecified[ICD10: E55.9] Diagnosis: Chronic obstructive pulmonary disease, unspecified[ICD10: J44.9] Diagnosis: Mixed hyperlipidemia[ICD10: E78.2] Diagnosis: Tobacco use[ICD10: Z72.0] Karmen Ash MD, [facility] CPT- 4: 34987 11/25/2015 ([id number]) 98622 EST. P ATIENT, LEVEL IV Diagnosis: Type 2 diabetes mellitus with hyperglycemia[ICD10: E11.65] Diagnosis: Essential (primary) hypertension[ICD10: I10] Diagnosis: Vitamin D deficiency, unspecified[ICD10: E55.9] Karmen Ash MD, [facility] CPT-4: 96777 07/28/2015 ([id number]) 73127 EST. P ATIENT, LEVEL III Diagnosis: Type 2 diabetes mellitus with hyperglycemia[ICD10: E11.65] Diagnosis: Essential (primary) hypertension[ICD10: I10] Violeta Ash MD, [facility] CPT-4: 34868 05/26/2015 ([id number]) 30574 EST. P ATIENT, LEVEL III Diagnosis: DIABETES TYPE II[ICD9: 250.00] Diagnosis: COPD (chronic obstructive pulmonary disease)[ICD9: 496] Diagnosis: ESSENTIAL HYPERTENSION[ICD9: 401.9] Diagnosis: Cough[ICD9: 786.2] Violeta Ash MD, [facility] CPT-4: 31716 05/06/2015 ([id number]) 95866 EST. P ATIENT, LEVEL III Diagnosis: COPD (chronic obstructive pulmonary disease)[ICD9: 496] Diagnosis: DIABETES TYPE II[ICD9: 250.00] Diagnosis: Muscle ache[ICD9: 729.1] Karmen Ash MD, [facility] CPT- 4: 72432 04/25/2015 ([id number]) 09125 EST. P ATIENT, LEVEL III Diagnosis: ACTINIC KERATOSIS[ICD9: 702.0] Diagnosis: COPD (chronic obstructive pulmonary disease)[ICD9: 496] Diagnosis: DIABETES TYPE II[ICD9: 250.00] Diagnosis: ACUTE URI[ICD9: 465.9] Violeta Ash MD, [facility] CPT-4: 32713 04/12/2015 ([id number]) 14950 EST. P ATIENT, LEVEL III Diagnosis: DIABETES TYPE II[ICD9: 250.00] Violeta Ash MD, [facility] CPT-4: 36745 03/24/2015 ([id number]) 44411 EST. P ATIENT, LEVEL IV Diagnosis: DIABETES TYPE II[ICD9: 250.00] Diagnosis: Hypoglycemia[ICD9: 251.2] Diagnosis: Skin texture changes[ICD9: 782.8] Violeta Ash MD, [facility] CPT-4: 99674 03/07/2015 ([id number]) 91186 EST. P ATIENT, LEVEL IV Diagnosis: COPD (chronic obstructive pulmonary disease)[ICD9: 496] Diagnosis: Fatigue[ICD9: 780.79] Diagnosis: Insulin dependent diabetes mellitus[ICD9: 250.00] Diagnosis: Unsteady gait[ICD9: 781.2] Maame Ash MD, [facility] CPT-4: 31726 02/17/2015 ([id number]) 82974 EST. P ATIENT, LEVEL IV Diagnosis: BPPV (benign paroxysmal positional vertigo)[ICD9: 386.11] Diagnosis: Impacted cerumen[ICD9: 380.4] Diagnosis: ESSENTIAL HYPERTENSION[ICD9: 401.9] Diagnosis: Insulin dependent diabetes mellitus[ICD9: 250.00] [facility] CPT-4: 33021 12/23/2014 ([id number]) OFFICE VISI , [facility] - LEVEL 4 Diagnosis: Insulin dependent diabetes mellitus[ICD9: 250.00] Diagnosis: BPPV (benign paroxysmal positional vertigo)[ICD9: 386.11] Diagnosis: COPD (chronic obstructive pulmonary disease)[ICD9: 496] Diagnosis: Tobacco abuse[ICD9: 305.1] Diagnosis: Osteoarthritis[ICD9: 715.90] [facility] CPT- 4: 37177 12/09/2014 Plan of Care Planned Activity Notes [...] 09/02/2018 Care Plan: %Hba1C KIKI C : 48297-4 Pending 09/02/2018 Care Plan: Tsh Pending 09/02/2018 [...] care surrogate. 06/30/2018 Appointment: Karmen Espinal WPtel: [facility] [phone] [facility] - Annual Wellness Visit 06/30/2018 Patient [...] [facility]Ptel[phone] [facility] [phone] (15 min) [...] months 04/04/2018 Appointment: Karmen Espinal WPtel: [phone] [phone] [place] (15 min) Moderate 04/04/2018 Patient Education: Patient Medication Summary Completed 04/04/2018 Care Plan: Cbc With Differential Pending 04/04/2018 Care Plan: Testosterone repeat in 2 months Pending 04/04/2018 Appointment: Karmen Espinal WPtel: [phone] [phone] [place] (15 min) Moderate 03/25/2018 Visit Plan: Low back pain -history of kidney stone-UA negative today -increase fluids and call if pain does not resolve or if any worse. 03/07/2018 Appointment: Karmen Espinal WPtel: [phone] [phone] [place] (15 min) Moderate 03/07/2018 Patient Education: [...] 1 month 02/20/2018 Appointment: Karmen Espinal WPtel: [facility] [phone] (15 min) Moderate 02/20/2018 Patient Education: Patient Medication Summary Completed 02/20/2018 Visit Plan: COPD EXACERBATION - VP SECURITIES D is a chronic problem for this [...] acute changes. 01/30/2018 Appointment: Karmen Espinal WPtel: [phone] [facility] [phone] (15 min) Moderate 01/30/2018 Patient Education: Patient Medication Summary Completed 01/30/2018 Appointment: Karmen Espinal WPtel: [address] [place] [address] (15 min) Moderate 01/28/2018 Appointment: Injection 01/17/2018 Patient Education: Patient Medication Summary Completed 01/17/2018 Visit Plan: Cellulitis - start oral antibiotics as directed, return to clinic as previously directed, call for acute change in symptoms, worsening redness, warmth, discharge. 01/14/2018 Appointment: Karmen Espinal WPtel: [facility] [place] [address] (10 min) Simple 01/14/2018 Patient Education: Patient [...] less controlled. 01/13/2018 Appointment: Karmen Espinal WPtel: [address] [place] [address] (15 min) Moderate 01/13/2018 Patient Education: Patient Medication Summary Completed 01/13/2018 Referral: Hugo Villatoro HPtel:[phone] [place] [address] Patient's informed. Referral info ned monroy. Completed [...] change in blood pressure readings at home. Wjzezejo-bgmelm-aboxi to see Dr Villatoro Constipation-start linzess daily 11/19/2017 Appointment: Karmen Espinal WPtel: [phone] [facility] [phone] [place] (30 min) Complex 11/19/2017 Patient Education: Patient Medication Summary Completed 11/19/2017 Care Plan: Referral Order bloating, nausea SNOMED-CT : 131348923 Pending 11/19/2017 Visit Plan: Low back pain- [...] [place] WPtel: [phone] [facility] [place] [place] (15 [...] less controlled. 07/23/2017 Appointment: Karmen Espinal WPtel: [address] [place], [place] [phone] (30 min) [facility] 07/23/2017 Patient Education: Patient Medication [...] readings are starting to become less controlled. Grdcuh-iigkupr-orsxn labs 02/19/2017 Appointment: Karmen Espinal WPtel: [phone] [...] month 01/21/2017 Appointment: Karmen Espinal WPtel: [phone] [phone] (30 min) Complex 01/21/2017 Patient Education: Patient Medication Summary Completed 01/21/2017 Patient Education: Smoking and Tobacco Addiction Completed 01/21/2017 Patient Education: Hypertension Completed 01/21/2017 Care Plan: Referral Order SNOMED-CT : 560016478 Pending 01/21/2017 Visit Plan: Diabetes Mellitus - [...] acute changes. 12/20/2016 Appointment: Karmen Espinal WPtel: [facility]5 [phone] (30 min) Complex 12/20/2016 Patient Education: Patient Medication Summary Completed 12/20/2016 Patient Education: Smoking and Tobacco Addiction Completed 12/20/2016 Patient Education: Hypertension Completed 12/20/2016 Appointment: Karmen Espinal WPtel: [phone] [phone] (30 min) Complex 09/06/2016 Visit Plan: Diabetes [...] d level 08/23/2016 Appointment: Karmen Espinal WPtel: [phone] [phone] (30 min) Complex 08/23/2016 Patient Education: Patient [...] changes. 05/22/2016 Appointment: Karmen Espinal WPtel: [phone] [phone] [place] (30 min) Complex 05/22/2016 Patient Education: Patient Medication Summary Completed 05/22/2016 Patient Education: Smoking and Tobacco Addiction Completed 05/22/2016 Care Plan: Cbc With Differential Ordered 05/22/2016 Care Plan: %Hba1C KIKI C : 73518-3 Ordered 05/22/2016 Care Plan: Tsh Ordered 05/22/2016 [...] update 02/24/2016 Appointment: Karmen Espinal WPtel: [phone] [phone] (30 min) Complex 02/24/2016 Patient Education: Patient [...] Completed 05/06/2015 Visit Plan: COPD EXACERBATION - VP SECURITIES D is a chronic problem for this [...] POTENTIAL SIDE EFFECTS AND WORSENING OF SYMPTOMS. Xohedpla-vxwkyhxn-QTOU SIMVASTATIN X 2 WEEKS AND CALL WITH [...] Care Plan: COMPLETE CBC AUTOMATED LOINC : 48586-2 Ordered 03/24/2015 Visit Plan: Diabetes Mellitus - [...] for removal. 03/07/2015 Appointment: Violeta Ash WPtel: [facility] (15 min) Moderate 03/07/2015 Patient Education: Patient [...] Care Plan: COMPLETE CBC AUTOMATED LOINC : 00448-3 Ordered 12/23/2014 Visit Plan: BPPV - Benign [...] next appt 12/09/2014 Appointment: Karmen Espinal WPtel: [address] [place], [place] [phone] [place] ([place]) New Patient 12/09/2014 Patient Education: Patient Medication Summary Completed 12/09/2014 Patient Education: .Amazing charts Parox ysmal positional vertigo Completed 12/09/2014 Patient Education: Smoking and Tobacco Addiction Completed 12/09/2014 [phone] [facility] [place] [place] Referral Appointment Requested Referral: Luis [...] readings are starting to become less controlled. Spxukl-anyxoxb-uxhhb labs . Cellulitis - start oral antibiotics [...] change in blood pressure readings at home. Eoxoebki-jejqcv-tmqms to see Dr Villatoro Constipation-start linzess daily [...] POTENTIAL SIDE EFFECTS AND WORSENING OF SYMPTOMS. Odszwlei-yluotmej-XPQF SIMVASTATIN X 2 WEEKS AND CALL WITH [...]
[2020-03-29 09:20] VITALS: BP 141/63
--- NOTE | 2020-03-29 09:20 | Progress Note-Post Operative ---
Post-Operative Progess Note Surgeon (s)/Philosophy Specialist (s) Surgeon CORINE PIKE DO Philosophy Specialist: na Pre-Operative Diagnosis gerd, blood in stool Post-Operative Diagnosis gastritis, reflux esophagitis, colon polyps x 2 Procedure & Operative Findings Date of Procedure 03/29/20 Procedure Performed/Findings egd c biopsies colonoscopy c hot bx polypectomy x 2 and laura inking of ascending colon polyp Anesthesia Type per plaster caster Estimated Blood Loss Estimated blood loss (mL): scant Specimens/Packing Specimens Removed antrum, body, ge, ascending colon polyp, sigmoid polyp CORINE PIKE DO Mar 29, 2020 09:20
--- NOTE | 2020-03-29 09:21 | Discharge Inst-Simple/Standard ---
Discharge Inst-Standard Discharge Medications New, Converted or Re-Newed RX: RX on Chart Patient Instructions/Follow Up Plan of Care/Instructions/FU: 2 weeks francisco Activity as Tolerated: Yes Discharge Diet: Regular Diet CORINE PIKE DO Mar 29, 2020 09:21
--- OUTSIDE RECORDS SUMMARY | 2020-03-29 09:21 | XMS REPORT | CCD ---
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 Apprentice Name Role Phone PP Unavailable CCM Unavailable Summary Purpose Interface Exchange Insurance Providers Payer name Policy type / Coverage type Covered alliance party ID Effective Begin Date Effective End Date WPS Medicare Part B Medicare Part B [id number] Unknown Unknown [employer] Medicar e Part B [id number] Unknown Unkn own Family history Father Diagnosis Age At Onset Cancer Unknown Mother Diagnosis Age At Onset Cancer Unknown Social History Social History Element Codes Description Effective Dates Marital status Unknown M arried 12/09/2014 Employment Unknown Retir ed 12/09/[address]: 38145016 Currently smokes tobacco 12/09/2014 Number of years using tobacco Unknown > 50 12/09/2014 Number of cigarettes/day Unknown 30 (Pack and a half) 12/09/[address]: 167620742 Never drinks alcohol 12/09/2014 Allergies, Adverse Reactions, [...] ICD-9: 257.9 ICD-10: E29.9 Active 01/17/2018 Unknown Encounter for genera l adult medical examination with abnormal findings ICD-9: V70.0 ICD-10: Z00.01 Active 06/30/2018 Unknown Cellulitis of face ICD- 9: 682.0 ICD-10: L03.211 Active 06/06/2018 Unknown Encounter for immuni zation ICD-9: V04.81 ICD-10: Z23 Active 05/21/2016 Unknown Essential (primary) hypertension ICD-9: 401.9 ICD-10: I10 Active 08/22/2016 Unknown Type 2 diabetes kadi itus without complications ICD-9: 250.00 ICD-10: E11.9 Active 02/20/2018 Unknown Abnormal weight loss ICD-9: 783.21 ICD-10: R63.4 Active 02/20/2018 Unknown Chronic obstructive pulmonary disease, unspecified ICD-9: 496 ICD-10: J44.9 Active 05/21/2016 Unknown Low back pain ICD-9: 724.2 ICD-10: M54.5 Active 10/02/2017 Unknown Type 2 diabetes kadi itus with hyperglycemia ICD-9: 250.02 ICD-10: E11.65 Active 02/20/2018 Unknown Dysuria ICD-9: 788.1 ICD-10: [...] ICD-9: 564.09 ICD-10: K59.03 Active 11/19/2017 Unknown Vitamin D deficiency , unspecified ICD-9: 268.9 ICD-10: E55.9 Active 08/22/2016 Unknown Mixed hyperlipidemia ICD-9: 272.2 ICD-10: E78.2 Active 08/22/2016 Unknown Encounter for immuni zation ICD-9: V06.6 [...] unspecified ICD-9: 257.9 ICD-10: E29.9 01/17/2018 Active Encounter for genera l adult medical examination with abnormal findings ICD-9: V70.0 ICD-10: Z00.01 06/30/2018 Active Cellulitis of face ICD- 9: 682.0 ICD-10: L03.211 06/06/2018 Active Encounter for immuni zation ICD-9: V04.81 ICD-10: Z23 05/21/2016 Active Essential (primary) hypertension ICD-9: 401.9 ICD-10: I10 08/22/2016 Active Type 2 diabetes kadi itus without complications ICD-9: 250.00 ICD-10: E11.9 02/20/2018 Active Abnormal weight loss ICD-9: 783.21 ICD-10: R63.4 02/20/2018 Active Chronic obstructive pulmonary disease, unspecified ICD-9: 496 ICD-10: J44.9 05/21/2016 Active Low back pain ICD-9: 724.2 ICD-10: M54.5 10/02/2017 Active Type 2 diabetes kadi itus with hyperglycemia ICD-9: 250.02 ICD-10: E11.65 02/20/2018 Active Dysuria ICD-9: 788.1 ICD-10: R30.0 [...] ation ICD-9: 564.09 ICD-10: K59.03 11/19/2017 Active Vitamin D deficiency , unspecified ICD-9: 268.9 ICD-10: E55.9 08/22/2016 Active Mixed hyperlipidemia ICD-9: 272.2 ICD-10: E78.2 08/22/2016 Active Encounter for immuni zation ICD-9: V06.6 [...] Stop Date Sta tus Fill Instructions testosterone enantha te 200 mg/mL intramuscular oil RxNorm: 125573 Milliliter(s) IM 08/21/2018 08/21/2018 In active hydrocodone 5 mg-linh taminophen 325 mg tablet RxNorm: 992665 1 Tablet(s) PO Q6-8H as needed 08/21/2018 09/14/2018 Active testosterone cypiona te 200 mg/mL intramuscular oil RxNorm: 9529434 Milliliter(s) IM 08/08/2018 08/08/2018 In active testosterone cypiona te 200 mg/mL intramuscular oil RxNorm: 0405097 1/2 Milliliter(s) IM 07/28/2018 07/28/2018 Inactive hydrocodone 5 mg-linh taminophen 325 mg tablet RxNorm: 735091 1 Tablet(s) PO Q6-8H as needed 07/21/2018 08/14/2018 Inactive testosterone cypiona te 200 mg/mL intramuscular oil RxNorm: 080755 Milliliter(s) IM 07/16/2018 07/16/2018 In active testosterone cypiona te 200 mg/mL intramuscular oil RxNorm: 565562 Milliliter(s) IM 07/02/2018 07/02/2018 In active Xanax 0.5 mg tablet RxNorm: 367066 1 Tablet(s) PO TID 06/27/2018 08/25/2018 Active testosterone cypiona te 200 mg/mL intramuscular oil RxNorm: 464859 Milliliter(s) IM 06/24/2018 06/24/2018 In active hydrocodone 5 mg-linh taminophen 325 mg tablet RxNorm: 036796 1 Tablet(s) PO Q6-8H as needed 06/23/2018 07/17/2018 Inactive testosterone cypiona te 200 mg/mL intramuscular oil RxNorm: 696089 Milliliter(s) IM 06/13/2018 06/13/2018 In active testosterone cypiona te 200 mg/mL intramuscular oil RxNorm: 097034 Milliliter(s) IM 06/05/2018 06/05/2018 In active testosterone cypiona te 200 mg/mL intramuscular oil RxNorm: 711981 1/2 Milliliter(s) IM weekly 05/30/2018 09/26/2018 Active testosterone cypiona te 200 mg/mL intramuscular oil RxNorm: 598885 Milliliter(s) IM 05/30/2018 05/30/2018 In active testosterone cypiona te 200 mg/mL intramuscular oil RxNorm: 412662 Milliliter(s) IM 05/22/2018 05/22/2018 In active hydrocodone 5 mg-linh taminophen 325 mg tablet RxNorm: 653259 1 Tablet(s) PO Q6-8H as needed 05/20/2018 06/13/2018 Inactive testosterone cypiona te 200 mg/mL intramuscular oil RxNorm: 657013 1/2 Milliliter(s) IM 05/12/2018 05/12/2018 Inactive testosterone cypiona te 200 mg/mL intramuscular oil RxNorm: 865394 Milliliter(s) IM 05/02/2018 05/02/2018 In active testosterone cypiona te 200 mg/mL intramuscular oil RxNorm: 530325 1/2 Milliliter(s) IM weekly 04/24/2018 05/29/2018 Inactive testosterone cypiona te 200 mg/mL intramuscular oil RxNorm: 497306 0.5 Milliliter(s) IM 04/24/2018 04/24/2018 Inactive hydrocodone 5 mg-linh taminophen 325 mg tablet RxNorm: 686382 1 Tablet(s) PO Q6-8H as needed 04/22/2018 05/16/2018 Inactive testosterone cypiona te 200 mg/mL intramuscular oil RxNorm: 960697 1/2 Milliliter(s) IM 04/17/2018 04/17/2018 Inactive testosterone cypiona te 200 mg/mL intramuscular oil RxNorm: 173087 1/2 Milliliter(s) IM weekly 04/16/2018 04/23/2018 Inactive Jardiance 10 mg tablet RxNorm: 9281487 1 Tablet(s) PO daily 04/04/2018 12/29/2018 Active Protonix 40 mg table t,delayed release RxNorm: 237530 1 Tablet(s) PO daily TAKE 1 TABLET BY MOUTH DAILY 04/04/2018 03/29/2019 Active - Ref: [id number] testosterone cypiona te 200 mg/mL intramuscular oil RxNorm: 307949 1 Milliliter(s) IM monthly 04/04/2018 04/15/2018 Inactive hydrocodone 5 mg-linh taminophen 325 mg tablet RxNorm: 877898 1 Tablet(s) PO Q6-8H as needed 03/19/2018 04/12/2018 Inactive Flomax 0.4 mg capsule RxNorm: 782065 1 Capsule(s) PO daily 03/10/2018 03/04/2019 Active Urecholine 25 mg tablet RxNorm: 422395 1 Tablet(s) PO BID 03/10/2018 07/07/2018 Inactive ketorolac 60 mg/2 mL intramuscular solution RxNorm: 0973641 Milliliter(s) IM 03/07/2018 03/07/2018 In active metformin 500 mg tablet RxNorm: 359731 Tablet(s) TAKE 1 TABLET BY MOUTH DAILY 02/20/2018 02/14/2019 Ac tive 1 q am and 1/2 tab q pm hydrocodone 5 mg-linh taminophen 325 mg tablet RxNorm: 637322 1 Tablet(s) PO Q6-8H as needed 02/20/2018 03/16/2018 Inactive Kenalog 40 mg/mL bartolome pension for injection RxNorm: 1144052 1.5 Milliliter(s) In j 01/30/2018 01/30/2018 In active hydrocodone 5 mg-linh taminophen 325 mg tablet RxNorm: 561372 1 Tablet(s) PO Q6-8H as needed 01/23/2018 02/16/2018 Inactive Urecholine 25 mg tablet RxNorm: 253415 1 Tablet(s) PO BID 01/22/2018 03/09/2018 Inactive Flomax 0.4 mg capsule RxNorm: 251810 1 Capsule(s) PO daily 01/22/2018 03/09/2018 Inactive Flomax 0.4 mg capsule RxNorm: 231710 1 Capsule(s) PO daily 01/22/2018 01/21/2018 Inactive Urecholine 25 mg tablet RxNorm: 213010 1 Tablet(s) PO BID 01/22/2018 01/21/2018 Inactive testosterone cypiona te 200 mg/mL intramuscular oil RxNorm: 640036 Milliliter(s) IM 01/17/2018 01/17/2018 In active testosterone cypiona te 200 mg/mL intramuscular oil RxNorm: 943589 1 Milliliter(s) IM monthly 01/17/2018 04/03/2018 Inactive lisinopril 10 mg tablet RxNorm: 615136 TAKE 1 TABLET BY MOUTH TWO TIMES DAILY 01/14/2018 01/08/2019 Ac tive - First Attempt Ref: [id number] doxycycline hyclate 100 mg tablet RxNorm: 803343 1 Tablet(s) PO BID 01/14/2018 01/23/2018 Inactive Xanax 0.5 mg tablet RxNorm: 145773 1 Tablet(s) PO TID 01/08/2018 04/06/2018 Inactive nystatin 100,000 uni t/mL oral suspension RxNorm: 311580 4 Milliliter(s) PO QI D Swish and swallow 01/08/2018 01/07/2018 Inactive nystatin 100,000 uni t/mL oral suspension RxNorm: 242025 4 Milliliter(s) PO QI D Swish and swallow 01/08/2018 01/12/2018 Inactive simvastatin 40 mg ta blet RxNorm: 467305 TAKE 1 TABLET BY MOUT H DAILY AT BEDTIME 12/30/2017 12/24/2018 Ac tive - First Attempt Ref: [id number] metformin 500 mg tablet RxNorm: 553218 TAKE 1 TABLET BY MOUTH DAILY 12/30/2017 02/19/2018 Inactive - First Attempt Ref: [id number] hydrocodone 5 mg-linh taminophen 325 mg tablet RxNorm: 548037 1 Tablet(s) PO Q6-8H as needed 12/25/2017 01/18/2018 Inactive Protonix 40 mg table t,delayed release RxNorm: 249762 Tablet(s) TAKE 1 TABL ET BY MOUTH DAILY 11/20/2017 04/03/2018 Inactive - Ref: [id number] Linzess 72 mcg capsule RxNorm: 5995620 1 Capsule(s) PO daily 11/19/2017 No Stop Date Active hydrocodone 5 mg-linh taminophen 325 mg tablet RxNorm: 111096 1 Tablet(s) PO Q6-8H as needed 11/19/2017 12/13/2017 Inactive hydrocodone 5 mg-linh taminophen 325 mg tablet RxNorm: 712882 1 Tablet(s) PO Q6-8H as needed 10/28/2017 11/18/2017 Inactive Xanax 0.5 mg tablet RxNorm: 818184 1 Tablet(s) PO TID 10/25/2017 12/22/2017 Inactive Xanax 0.5 mg tablet RxNorm: 448741 TAKE ONE TABLET BY MOUTH THREE TIMES A D AY 10/24/2017 12/22/2017 In active hydrocodone 5 mg-linh taminophen 325 mg tablet RxNorm: 511299 1 Tablet(s) PO Q6-8H as needed 09/30/2017 10/24/2017 Inactive Protonix 40 mg table t,delayed release RxNorm: 846147 TAKE 1 TABLET BY MOUT H DAILY 09/16/2017 11/19/2017 In active - Ref: [id number] Yovana Perkins 300 unit/mL (1.5 mL) subcutaneous insulin pen RxNorm: 6627861 35 Unit(s) SQ QHS 08/30/2017 No Stop Date Active dosage increase hydrocodone 5 mg-linh taminophen 325 mg tablet RxNorm: 621456 1 Tablet(s) PO Q6-8H as needed 08/28/2017 09/29/2017 Inactive hydrocodone 5 mg-linh taminophen 325 mg tablet RxNorm: 710391 1 Tablet(s) PO Q6-8H as needed 07/23/2017 08/24/2017 Inactive lisinopril 10 mg tablet RxNorm: 138242 1 Tablet(s) PO BID Take 1 tablet by mout h daily 07/23/2017 01/13/2018 Inactive hydrocodone 5 mg-linh taminophen 325 mg tablet RxNorm: 519182 1 Tablet(s) PO Q6-8H as needed 06/27/2017 07/22/2017 Inactive Xanax 0.5 mg tablet RxNorm: 436231 1 Tablet(s) PO TID 06/18/2017 10/25/2017 Inactive hydrocodone 5 mg-linh taminophen 325 mg tablet RxNorm: 619728 1 Tablet(s) PO Q6-8H as needed 05/27/2017 06/26/2017 Inactive Levaquin 500 mg tablet RxNorm: 421698 1 Tablet(s) PO daily 05/24/2017 05/23/2017 Inactive Levaquin 500 mg tablet RxNorm: 524394 1 Tablet(s) PO daily 05/24/2017 05/30/2017 Inactive Protonix 40 mg table t,delayed release RxNorm: 589621 Take 1 tablet by mout h daily 04/29/2017 09/15/2017 In active - Ref: [id number] hydrocodone 5 mg-linh taminophen 325 mg tablet RxNorm: 599342 1 Tablet(s) PO Q6-8H as needed 04/25/2017 05/26/2017 Inactive metformin 500 mg tablet RxNorm: 053082 Take 1 tablet by mouth daily 04/08/2017 12/29/2017 Inactive - First Attempt Ref: [id number] hydrocodone 5 mg-linh taminophen 325 mg tablet RxNorm: 229561 1 Tablet(s) PO Q6-8H as needed 03/27/2017 04/24/2017 Inactive hydrocodone 5 mg-linh taminophen 325 mg tablet RxNorm: 489362 1 Tablet(s) PO Q6-8H as needed 02/25/2017 03/26/2017 Inactive Protonix 40 mg table t,delayed release RxNorm: 482138 Tablet(s) Take 1 tabl et by mouth BID 02/25/2017 04/28/2017 Inactive Protonix 40 mg table t,delayed release RxNorm: 828854 Tablet(s) Take 1 tabl et by mouth BID 02/19/2017 02/18/2017 Inactive Protonix 40 mg table t,delayed release RxNorm: 481829 Tablet(s) Take 1 tabl et by mouth BID 02/19/2017 02/24/2017 Inactive lisinopril 10 mg tablet RxNorm: 726787 Take 1 tablet by mouth daily 01/29/2017 07/22/2017 Inactive - First Attempt Ref: [id number] hydrocodone 5 mg-linh taminophen 325 mg tablet RxNorm: 099953 1 Tablet(s) PO Q6-8H as needed 01/25/2017 02/24/2017 Inactive simvastatin 40 mg ta blet RxNorm: 660045 Tablet(s) Take 1 tabl et by mouth daily at bedtime 01/03/2017 12/28/2017 Inactive lisinopril 10 mg tablet RxNorm: 776505 Tablet(s) Take 1 tablet by mouth daily 01/03/2017 01/28/2017 In active Protonix 40 mg table t,delayed release RxNorm: 335603 Tablet(s) Take 1 tabl et by mouth daily 12/28/2016 02/18/2017 Inactive hydrocodone 5 mg-linh taminophen 325 mg tablet RxNorm: 857428 1 Tablet(s) PO Q6-8H as needed 12/26/2016 01/24/2017 Inactive Xanax 0.5 mg tablet RxNorm: 103748 1 Tablet(s) PO TID 12/12/2016 03/11/2017 Inactive simvastatin 40 mg ta blet RxNorm: 969548 Tablet(s) Take 1 tabl et by mouth daily at bedtime 11/30/2016 01/02/2017 Inactive simvastatin 40 mg ta blet RxNorm: 251584 Take 1 tablet by mout h daily at bedtime 11/29/2016 11/29/2016 In active - First Attempt Ref: [id number] Protonix 40 mg table t,delayed release RxNorm: 351376 Take 1 tablet by mout h daily 11/27/2016 12/27/2016 In active - First Attempt Ref: [id number] hydrocodone 5 mg-linh taminophen 325 mg tablet RxNorm: 163082 1 Tablet(s) PO Q6-8H as needed 11/26/2016 12/25/2016 Inactive hydrocodone 5 mg-linh taminophen 325 mg tablet RxNorm: 824317 1 Tablet(s) PO Q8 as needed 10/24/2016 11/25/2016 Inactive Xanax 0.5 mg tablet RxNorm: 165125 1 Tablet(s) PO TID 10/09/2016 12/25/2016 Inactive hydrocodone 5 mg-linh taminophen 325 mg tablet RxNorm: 352261 1 Tablet(s) PO Q8 as needed 09/27/2016 10/23/2016 Inactive lisinopril 10 mg tablet RxNorm: 639429 Take 1 tablet by mouth daily 09/25/2016 01/02/2017 Inactive - First Attempt Ref: [id number] Vitamin D2 50,000 un it capsule RxNorm: 961699 1 Capsule(s) PO QW 09/06/2016 No Stop Date Active hydrocodone 5 mg-linh taminophen 325 mg tablet RxNorm: 563147 1 Tablet(s) PO Q8 as needed 08/28/2016 09/26/2016 Inactive Tojanie SoloStar 300 unit/mL (1.5 mL) subcutaneous insulin pen RxNorm: 7324432 25 Unit(s) SQ QHS 08/23/2016 08/29/2017 Inactive dosage increase hydrocodone 5 mg-linh taminophen 325 mg tablet RxNorm: 135339 1 Tablet(s) PO Q8 as needed 07/26/2016 08/27/2016 Inactive Protonix 40 mg table t,delayed release RxNorm: 168377 Take 1 tablet by mout h daily 07/24/2016 11/26/2016 In active - First Attempt Ref: [id number] hydrocodone 5 mg-linh taminophen 325 mg tablet RxNorm: 399814 1 Tablet(s) PO Q8 as needed 06/19/2016 07/21/2016 Inactive Yovana SoloStar 300 unit/mL (1.5 mL) subcutaneous insulin pen RxNorm: 5561063 32 Unit(s) SQ QHS 05/30/2016 08/22/2016 Inactive dosage increase hydrocodone 5 mg-linh taminophen 325 mg tablet RxNorm: 644652 1 Tablet(s) PO Q8 as needed 05/22/2016 06/18/2016 Inactive hydrocodone 5 mg-linh taminophen 325 mg tablet RxNorm: 374347 1 Tablet(s) PO Q8 as needed 04/18/2016 05/17/2016 Inactive Protonix 40 mg table t,delayed release RxNorm: 370264 Take 1 tablet by mout h daily 04/05/2016 07/03/2016 In active - Ref: [id number] metformin 500 mg tablet RxNorm: 247494 Take 1 tablet by mouth daily 04/04/2016 07/02/2016 Inactive - Ref: [id number] Xanax 0.5 mg tablet RxNorm: 008001 1 Tablet(s) PO TID 03/30/2016 09/25/2016 Inactive Xanax 0.5 mg tablet RxNorm: 013728 1 Tablet(s) PO TID 03/23/2016 12/25/2016 Inactive hydrocodone 5 mg-linh taminophen 325 mg tablet RxNorm: 619023 1 Tablet(s) PO Q8 as needed 03/06/2016 04/04/2016 Inactive Cipro 500 mg tablet RxNorm: 706824 1 Tablet(s) PO BID 02/24/2016 03/04/2016 Inactive Miralax 17 gram oral powder packet RxNorm: 034469 1 packet PO every oth er day 01/27/2016 No Stop Date Active hydrocodone 5 mg-linh taminophen 325 mg tablet RxNorm: 654759 1 Tablet(s) PO Q8 as needed 01/27/2016 02/25/2016 Inactive lisinopril 10 mg tablet RxNorm: 515187 1 Tablet(s) PO daily 01/12/2016 09/24/2016 Inactive simvastatin 40 mg ta blet RxNorm: 525198 1 Tablet(s) PO QHS 01/12/2016 11/28/2016 Inactive simvastatin 40 mg ta blet RxNorm: 891324 1 Tablet(s) PO QHS 01/11/2016 01/11/2016 Inactive lisinopril 10 mg tablet RxNorm: 427869 1 Tablet(s) PO daily 01/06/2016 01/11/2016 Inactive simvastatin 40 mg ta blet RxNorm: 676492 1 Tablet(s) PO daily 12/28/2015 01/10/2016 Inactive hydrocodone 5 mg-linh taminophen 325 mg tablet RxNorm: 395457 1 Tablet(s) PO Q8 as needed 12/27/2015 01/26/2016 Inactive Xanax 0.5 mg tablet RxNorm: 944650 1 Tablet(s) PO TID 11/30/2015 03/29/2016 Inactive meclizine 25 mg tablet RxNorm: 428719 1 Tablet(s) PO Q6 PRN TAKE ONE TABLET BY MOUTH EVERY 6 HOURS NEEDED 11/25/2015 02/22/2016 Inactive Toujeo SoloStar 300 unit/mL (1.5 mL) subcutaneous insulin pen RxNorm: 5664872 30 Unit(s) SQ QHS 11/25/2015 05/29/2016 Inactive dosage increase omeprazole 20 mg cap jacquelyn,delayed release RxNorm: 503465 1 Capsule(s) PO daily 10/06/2015 01/26/2016 In active Toujeo SoloStar 300 unit/mL (1.5 mL) subcutaneous insulin pen RxNorm: 5673993 35 Unit(s) SQ QHS 08/02/2015 11/24/2015 Inactive dosage increase Vitamin D2 50,000 un it capsule RxNorm: 648035 1 Capsule(s) PO QW 08/02/2015 09/05/2016 Inactive hydrocodone 5 mg-linh taminophen 325 mg tablet RxNorm: 680689 1 Tablet(s) PO Q8 as needed 07/11/2015 12/26/2015 Inactive Xanax 0.5 mg tablet RxNorm: 591604 1 Tablet(s) PO TID 06/30/2015 06/29/2015 Inactive Xanax 0.5 mg tablet RxNorm: 599659 1 Tablet(s) PO TID 06/30/2015 12/25/2015 Inactive hydrocodone 5 mg-linh taminophen 325 mg tablet RxNorm: 950783 1 Tablet(s) PO Q8 as needed 05/06/2015 07/10/2015 Inactive Symbicort 160 mcg-4. 5 mcg/actuation HFA aerosol inhaler RxNorm: 1000946 INH 04/25/2015 No Stop Date Active Levemir FlexTouch 10 0 unit/mL (3 mL) subcutaneous insulin pen RxNorm: 348965 30 Unit(s) SQ QHS 04/25/2015 11/24/2015 Inactive prednisone 20 mg tablet RxNorm: 026144 1 Tablet(s) PO BID 04/25/2015 04/29/2015 Inactive metformin 500 mg tablet RxNorm: 459270 1 Tablet(s) PO daily 04/25/2015 04/03/2016 Inactive amoxicillin 500 mg c apsule RxNorm: 239610 1 Capsule(s) PO TID 04/14/2015 04/13/2015 Inactive amoxicillin 500 mg c apsule RxNorm: 861242 1 Capsule(s) PO TID a nd recommend probiotic tid (otc) 04/14/2015 04/20/2015 Inactive Kenalog 40 mg/mL bartolome pension for injection RxNorm: 9660694 Milliliter(s) Inj 04/12/2015 04/12/2015 In active hydrocodone 5 mg-linh taminophen 325 mg tablet RxNorm: 126655 1 Tablet(s) PO Q8 as needed 03/30/2015 05/05/2015 Inactive Lantus 100 unit/mL s ubcutaneous solution RxNorm: 377104 25 Unit(s) SQ QPM 03/24/2015 04/25/2015 In active meclizine 25 mg tablet RxNorm: 804664 Tablet(s) TAKE ONE TABLET BY MOUTH EVERY 6 HOURS NEEDED 03/08/2015 04/06/2015 Inactive meclizine 25 mg tablet RxNorm: 234730 TAKE ONE TABLET BY MOUTH EVERY 6 HOURS A S NEEDED 02/25/2015 03/03/2015 Inactive Lantus 100 unit/mL s ubcutaneous solution RxNorm: 504827 20 Unit(s) SQ QPM 02/23/2015 03/23/2015 In active Lantus 100 unit/mL s ubcutaneous solution RxNorm: 669403 25 Unit(s) SQ QPM 02/23/2015 02/22/2015 In active hydrocodone 5 mg-linh taminophen 325 mg tablet RxNorm: 919799 1 Tablet(s) PO Q8 as needed 02/17/2015 03/29/2015 Inactive Xanax 0.5 mg tablet RxNorm: 107792 1 Tablet(s) PO TID 02/03/2015 06/29/2015 Inactive Lantus 100 unit/mL s ubcutaneous solution RxNorm: 645251 20 Unit(s) SQ QPM 12/29/2014 02/22/2015 In active Phenergan 12.5 mg re ctal suppository RxNorm: 089142 1 Suppository RTL Q6 PRN 12/23/2014 No Stop Date Active nausea Kenalog 40 mg/mL bartolome pension for injection RxNorm: 0000170 Milliliter(s) Inj 12/23/2014 12/23/2014 In active prednisone 20 mg tablet RxNorm: 746724 2 Tablet(s) PO daily 12/13/2014 12/17/2014 Inactive prednisone 20 mg tablet RxNorm: 122776 2 Tablet(s) PO daily 12/13/2014 12/12/2014 Inactive meclizine 25 mg tablet RxNorm: 210676 1 Tablet(s) PO Q6 PRN 12/09/2014 02/24/2015 Inactive hydrocodone 5 mg-linh taminophen 325 mg tablet RxNorm: 898801 1 Tablet(s) PO Q8 as needed 12/09/2014 02/16/2015 Inactive Vitamin B-12 1,000 m cg/mL oral drops RxNorm: 3245322 1 Milliliter(s) PO d aily No Start Date Active Alphagan P 0.1 % eye drops RxNorm: 782121 1 Drop(s) OPH BID No Start Date Active aspirin 325 mg table t,delayed release RxNorm: 026887 1 Tablet(s) PO daily No Start Date Active Tricor 145 mg tablet RxNorm: 125302 1 Tablet(s) PO daily No Start Date Active vitamin [id number] B1 oral liquid RxNorm: 1,000 Microgram(s) PO daily No Start Date Active atenolol 50 mg tablet RxNorm: 368404 1 Tablet(s) PO daily No Start Date Active Protonix 40 mg table t,delayed release RxNorm: 286306 1 Tablet(s) PO daily No Start Date 04/04/2016 Inactive glipizide 10 mg tablet RxNorm: 902042 1 Tablet(s) PO BID No Start Date 03/22/2015 Inactive Lantus 100 unit/mL s ubcutaneous solution RxNorm: 349131 15 Unit(s) SQ QPM No Start Date 12/28/2014 Inactive lisinopril 10 mg tablet RxNorm: 127255 1 Tablet(s) PO daily No Start Date 01/05/2016 Inactive Vitamin D2 50,000 un it capsule RxNorm: 688216 1 Capsule(s) PO QW No Start Date 08/01/2015 Inactive Toujeo SoloStar 300 unit/mL (1.5 mL) subcutaneous insulin pen RxNorm: 4125913 30 Unit(s) SQ QHS No Start Date 08/01/2015 Inactive simvastatin 40 mg ta blet RxNorm: 336025 1 Tablet(s) PO daily No Start Date 12/27/2015 Inactive testosterone cypiona te 200 mg/mL intramuscular oil RxNorm: 818576 1 Milliliter(s) IM monthly No Start Date 01/16/2018 Inactive hydrocodone 5 mg-linh taminophen 325 mg tablet RxNorm: 091145 1 Tablet(s) PO Q8 as needed No Start Date 12/08/2014 Inactive metformin 500 mg tablet RxNorm: 374946 1 Tablet(s) PO daily No Start Date 04/24/2015 Inactive omeprazole 20 mg cap jacquelyn,delayed release RxNorm: 840548 1 Capsule(s) PO daily No Start Date 10/05/2015 Inactive Flomax 0.4 mg capsule RxNorm: 230217 1 Capsule(s) PO daily No Start Date 03/23/2015 Inactive Medication Administered Medication Codes Instruc tions Start Date Status testosterone enanthate 200 mg/mL intramuscular oil RxNorm: 977212 Milliliter 08/21/2018 Active testosterone cypionate 200 mg/mL intramuscular oil RxNorm: 1569585 Milliliter 08/08/2018 No longer Active testosterone cypionate 200 mg/mL intramuscular oil RxNorm: 7156311 1/2Milliliter 07/28/2018 No longer Active testosterone cypionate 200 mg/mL intramuscular oil RxNorm: 479455 Milliliter 07/16/2018 No longer Active testosterone cypionate 200 mg/mL intramuscular oil RxNorm: 512257 Milliliter 07/02/2018 No longer Active testosterone cypionate 200 mg/mL intramuscular oil RxNorm: 106449 Milliliter 06/24/2018 No longer Active testosterone cypionate 200 mg/mL intramuscular oil RxNorm: 378895 Milliliter 06/13/2018 No longer Active testosterone cypionate 200 mg/mL intramuscular oil RxNorm: 459812 Milliliter 06/05/2018 No longer Active testosterone cypionate 200 mg/mL intramuscular oil RxNorm: 796272 Milliliter 05/30/2018 No longer Active testosterone cypionate 200 mg/mL intramuscular oil RxNorm: 633844 Milliliter 05/22/2018 No longer Active testosterone cypionate 200 mg/mL intramuscular oil RxNorm: 421527 1/2Milliliter 05/12/2018 No longer Active testosterone cypionate 200 mg/mL intramuscular oil RxNorm: 500420 Milliliter 05/02/2018 No longer Active testosterone cypionate 200 mg/mL intramuscular oil RxNorm: 855766 0.5Milliliter 04/24/2018 No longer Active testosterone cypionate 200 mg/mL intramuscular oil RxNorm: 397352 1/2Milliliter 04/17/2018 No longer Active ketorolac 60 mg/2 mL intramuscular solution RxNorm: 6400420 Milliliter 03/07/2018 No longer Active Kenalog 40 mg/mL suspension for injection RxNorm: 0331625 1.5Milliliter 01/30/2018 No longer Active testosterone cypionate 200 mg/mL intramuscular oil RxNorm: 948390 Milliliter 01/17/2018 No longer Active Kenalog 40 mg/mL suspension for injection RxNorm: 6303837 Milliliter 04/12/2015 No longer Active Kenalog 40 mg/mL suspension for injection RxNorm: 0740331 Milliliter 12/23/2014 No longer Active Immunizations Vaccine Codes Date Status Influenza CVX: 141 06/06 completed Influenza CVX: 141 04/25 completed Pneumococcal (Adult) CVX: 133 04/25/2017 completed Influenza CVX: 141 05/22 completed Assessments Condition Codes Effectiv e Dates Testicular dysfunction, unspecified ICD-10: E29.9 ICD-9: 257.9 08/21/2018 Encounter for general adult medical exam ination with abnormal findings ICD-10: Z00.01 ICD-9: V70.0 06/30/2018 Type 2 diabetes mellitus without complications ICD-10: E11.9 ICD-9: 250.00 06/06/2018 Cellulitis of face ICD-10: L03.211 ICD-9: 682.0 06/06/2018 Essential (primary) hypertension ICD -10: I10 ICD-9: 401.9 06/06/2018 Encounter for immunization ICD-10: Z 23 ICD-9: V04.81 06/06/2018 Chronic obstructive pulmonary disease, unspecified ICD-10: J44.9 ICD-9: 496 04/04/2018 Type 2 diabetes mellitus with hyperglycemia ICD-10: E11.65 ICD-9: 250.02 04/04/2018 Dysuria ICD-10: R30.0 ICD-9: 788.1 03/07/2018 Low [...] constipation ICD-10: K5 9.03 ICD-9: 564.09 11/19/2017 Vitamin D deficiency, unspecified IC D-10: E55.9 ICD-9: 268.9 11/19/2017 Mixed hyperlipidemia ICD-10: E78.2 ICD-9: 272.2 07/23/2017 Nicotine dependence, unspecified, uncomplicated ICD-10: F17.200 ICD-9: [...] Visit Reason For Visit Effective Dates Notes Annual Medicare Wellness Exam 06/30/2018 diabetes mellitus [...] Item Item Code Result Date Comp Metabolic Tlb918 NA 139 mEq/L 04/01/2018 Comp Metabolic Ydc693 K 4.2 mEq/L 04/01/2018 Comp Metabolic Nnh347 CL 102 mEq/L 04/01/2018 Comp Metabolic Rke785 CO2 29.0 mEq/L 04/01/2018 Comp Metabolic Rle413 AN ION GAP 12 04/01/2018 Comp Metabolic Ioh740 GL UCOSE 87 mg/dL 04/01/2018 Comp Metabolic Jre250 Cr eat 1.1 mg/dL 04/01/2018 Comp Metabolic Pqd210 eG FR 70 ml/min/1.73m2 04/01 Comp Metabolic Jgk827 BUN 21 mg/dL 04/01/2018 Comp Metabolic Psz601 B/ C Ratio 19.4 Ratio 04/01/2018 Comp Metabolic Ogk534 CA LCIUM 9.1 mg/dL 04/01/2018 Comp Metabolic Wzi699 AL K PHOS 60 U/L 04/01/2018 Comp Metabolic Itr803 T(SGOT) 15 U/L 04/01/2018 Comp Metabolic Myb609 AL T(SGPT) 18 U/L 04/01/2018 Comp Metabolic Nfz827 BI LI T 0.4 mg/dL 04/01/2018 Comp Metabolic Qtd692 AL BUMIN 4.0 g/dL 04/01/2018 Comp Metabolic Bzq012 TP RO 6.5 g/dL 04/01/2018 Comp Metabolic Grc574 GL OB 2.5 g/dL 04/01/2018 Comp Metabolic Vlj736 A/ G Ratio 1.6 Ratio 04/01/2018 Comp Metabolic Omv949 Os mo 280 mOsmo 04/01/2018 Lipid Ord30 [...] 34.3 pg 04/01/2018 Cbc With Differential Ord2 [place]% 6.0 % 04/01/2018 Cbc With Differential Ord2 [...] 3.25 K/ul 04/01/2018 Cbc With Differential Ord2 [place] ABS# 0.6 K/ul 04/01/2018 Cbc With Differential Ord2 Eos ABS# 0.4 K/ul 04/01/2018 Cbc With Differential Ord2 Baso ABS# 0.0 K/ul 04/01/2018 %Hba1C Qnn464 % HbA1c 50281-2 8.0 % 04/01/2018 %Hba1C Hkj008 Gluc Ave 183 mg/dL 04/01/2018 Testosterone Qtz563 Testo 111.3 ng/dL 04/01/2018 Testosterone Pcz626 Testo 135.4 ng/dL 01/14/2018 Cbc With Differential [...] 36.0 pg 01/14/2018 Cbc With Differential Ord2 [place]% 6.8 % 01/14/2018 Cbc With Differential Ord2 [...] 2.71 K/ul 01/14/2018 Cbc With Differential Ord2 [place] ABS# 0.8 K/ul 01/14/2018 Cbc With Differential Ord2 Eos ABS# 0.2 K/ul 01/14/2018 Cbc With Differential Ord2 Baso ABS# 0.0 K/ul 01/14/2018 Comp Metabolic Loc405 NA 134 mEq/L 11/20/2017 Comp Metabolic Xox247 K 4.4 mEq/L 11/20/2017 Comp Metabolic Mvi325 CL 99 mEq/L 11/20/2017 Comp Metabolic Fda039 CO2 29.0 mEq/L 11/20/2017 Comp Metabolic Pgc770 AN ION GAP 10 11/20/2017 Comp Metabolic Wtf175 GL UCOSE 218 mg/dL 11/20/2017 Comp Metabolic Igv029 Cr eat 1.0 mg/dL 11/20/2017 Comp Metabolic Grl872 eG FR 78 ml/min/1.73m2 11/20 Comp Metabolic Kza944 BUN 13 mg/dL 11/20/2017 Comp Metabolic Pqk994 B/ C Ratio 13.3 Ratio 11/20/2017 Comp Metabolic Zzn365 CA LCIUM 9.0 mg/dL 11/20/2017 Comp Metabolic Ofv063 AL K PHOS 71 U/L 11/20/2017 Comp Metabolic Eun372 T(SGOT) 18 U/L 11/20/2017 Comp Metabolic Lnz597 AL T(SGPT) 17 U/L 11/20/2017 Comp Metabolic Mlf447 BI LI T 0.4 mg/dL 11/20/2017 Comp Metabolic Zfc111 AL BUMIN 4.1 g/dL 11/20/2017 Comp Metabolic Jkd491 TP RO 6.5 g/dL 11/20/2017 Comp Metabolic Qfq724 GL OB 2.4 g/dL 11/20/2017 Comp Metabolic Zeb467 A/ G Ratio 1.8 Ratio 11/20/2017 Comp Metabolic Xvs403 Os mo 275 mOsmo 11/20/2017 Cbc With [...] 35.2 pg 11/20/2017 Cbc With Differential Ord2 [place]% 7.2 % 11/20/2017 Cbc With Differential Ord2 [...] 3.34 K/ul 11/20/2017 Cbc With Differential Ord2 [place] ABS# 0.6 K/ul 11/20/2017 Cbc With Differential Ord2 Eos ABS# 0.3 K/ul 11/20/2017 Cbc With Differential Ord2 Baso ABS# 0.0 K/ul 11/20/2017 Vitamin D 25 Oh Dmc8713 VITAMIN D, 25 HYDROXY 43.72 ng/mL 11/20/2017 %Hba1C Bmv121 % HbA1c 44426-8 7.4 % 11/20/2017 %Hba1C Rca993 Gluc Ave 166 mg/dL 11/20/2017 %Hba1C Upt459 % HbA1c 47060-1 7.2 % 08/20/2017 %Hba1C Vlu668 Gluc Ave 160 mg/dL 08/20/2017 Lipid Ord30 [...] 34.7 pg 08/20/2017 Cbc With Differential Ord2 [place]% 7.6 % 08/20/2017 Cbc With Differential Ord2 [...] 2.42 K/ul 08/20/2017 Cbc With Differential Ord2 [place] ABS# 0.6 K/ul 08/20/2017 Cbc With Differential Ord2 Eos ABS# 0.3 K/ul 08/20/2017 Cbc With Differential Ord2 Baso ABS# 0.0 K/ul 08/20/2017 Tsh Ord6 hTSH II 2.27 uIU/mL 08/20/2017 Comp Metabolic Kuf644 NA 138 mEq/L 08/20/2017 Comp Metabolic Psm819 K 4.3 mEq/L 08/20/2017 Comp Metabolic Asm787 CL 102 mEq/L 08/20/2017 Comp Metabolic Wae078 CO2 29.0 mEq/L 08/20/2017 Comp Metabolic Khg535 AN ION GAP 11 08/20/2017 Comp Metabolic Vxk453 GL UCOSE 89 mg/dL 08/20/2017 Comp Metabolic Pwe968 Cr eat 1.0 mg/dL 08/20/2017 Comp Metabolic Klk456 eG FR 80 ml/min/1.73m2 08/20 Comp Metabolic Qnh009 BUN 13 mg/dL 08/20/2017 Comp Metabolic Egp992 B/ C Ratio 13.5 Ratio 08/20/2017 Comp Metabolic Orf474 CA LCIUM 9.2 mg/dL 08/20/2017 Comp Metabolic Yxb110 AL K PHOS 69 U/L 08/20/2017 Comp Metabolic Fir247 T(SGOT) 18 U/L 08/20/2017 Comp Metabolic Ogj963 AL T(SGPT) 19 U/L 08/20/2017 Comp Metabolic Gkm207 BI LI T 0.6 mg/dL 08/20/2017 Comp Metabolic Yrr546 AL BUMIN 4.0 g/dL 08/20/2017 Comp Metabolic Hcf561 TP RO 6.6 g/dL 08/20/2017 Comp Metabolic Rue456 GL OB 2.6 g/dL 08/20/2017 Comp Metabolic Dmq654 A/ G Ratio 1.5 Ratio 08/20/2017 Comp Metabolic Qpw118 Os mo 275 mOsmo 08/20/2017 Vitamin D 25 Oh Nef7042 VITAMIN D, 25 HYDROXY 30.96 ng/mL 08/20/2017 B12 Hkw831 B12 >1500.00 pg/ml 02/22/2017 Cbc With Differential [...] 35.7 pg 02/20/2017 Cbc With Differential Ord2 [place]% 6.3 % 02/20/2017 Cbc With Differential Ord2 [...] 3.19 K/ul 02/20/2017 Cbc With Differential Ord2 [place] ABS# 0.5 K/ul 02/20/2017 Cbc With Differential Ord2 Eos ABS# 0.4 K/ul 02/20/2017 Cbc With Differential Ord2 Baso ABS# 0.0 K/ul 02/20/2017 Comp Metabolic Pzd516 NA 138 mEq/L 02/20/2017 Comp Metabolic Ksr282 K 4.5 mEq/L 02/20/2017 Comp Metabolic Moa415 CL 101 mEq/L 02/20/2017 Comp Metabolic Wdr399 CO2 31.0 mEq/L 02/20/2017 Comp Metabolic Ixd129 AN ION GAP 11 02/20/2017 Comp Metabolic Zbg674 GL UCOSE 120 mg/dL 02/20/2017 Comp Metabolic Blv754 Cr eat 0.9 mg/dL 02/20/2017 Comp Metabolic Dcq613 eG FR 83 ml/min/1.73m2 02/20 Comp Metabolic Vdt148 BUN 15 mg/dL 02/20/2017 Comp Metabolic Exi083 B/ C Ratio 16.1 Ratio 02/20/2017 Comp Metabolic Byw333 CA LCIUM 9.1 mg/dL 02/20/2017 Comp Metabolic Rmo011 AL K PHOS 67 U/L 02/20/2017 Comp Metabolic Vfw527 T(SGOT) 15 U/L 02/20/2017 Comp Metabolic Nom553 AL T(SGPT) 16 U/L 02/20/2017 Comp Metabolic Rab752 BI LI T 0.5 mg/dL 02/20/2017 Comp Metabolic Omv798 AL BUMIN 4.0 g/dL 02/20/2017 Comp Metabolic Ilm405 TP RO 6.4 g/dL 02/20/2017 Comp Metabolic Spd580 GL OB 2.4 g/dL 02/20/2017 Comp Metabolic Yie026 A/ G Ratio 1.7 Ratio 02/20/2017 Comp Metabolic Vqw130 Os mo 278 mOsmo 02/20/2017 Tsh Ord6 hTSH II 2.05 uIU/mL 02/20/2017 %Hba1C Kma651 % HbA1c 30825-5 7.6 % 02/20/2017 %Hba1C Atz154 Gluc Ave 171 mg/dL 02/20/2017 Vitamin D 25 Oh Ptm6770 VITAMIN D, 25 HYDROXY 44.40 ng/mL 12/21/2016 Comp Metabolic Wwq058 NA 131 mEq/L 12/21/2016 Comp Metabolic Vjw380 K 4.2 mEq/L 12/21/2016 Comp Metabolic Qpc062 CL 97 mEq/L 12/21/2016 Comp Metabolic Uwy995 CO2 27.0 mEq/L 12/21/2016 Comp Metabolic Vjc020 AN ION GAP 11 12/21/2016 Comp Metabolic Jii845 GL UCOSE 266 mg/dL 12/21/2016 Comp Metabolic Dmj540 Cr eat 0.9 mg/dL 12/21/2016 Comp Metabolic Xwy683 eG FR 88 ml/min/1.73m2 12/21 Comp Metabolic Twj226 BUN 12 mg/dL 12/21/2016 Comp Metabolic Vss417 B/ C Ratio 13.6 Ratio 12/21/2016 Comp Metabolic Sby036 CA LCIUM 8.6 mg/dL 12/21/2016 Comp Metabolic Ulg115 AL K PHOS 69 U/L 12/21/2016 Comp Metabolic Qny100 T(SGOT) 15 U/L 12/21/2016 Comp Metabolic Fqv982 AL T(SGPT) 14 U/L 12/21/2016 Comp Metabolic Mpd748 BI LI T 0.3 mg/dL 12/21/2016 Comp Metabolic Sul944 AL BUMIN 3.7 g/dL 12/21/2016 Comp Metabolic Jns711 TP RO 5.9 g/dL 12/21/2016 Comp Metabolic Kjn702 GL OB 2.2 g/dL 12/21/2016 Comp Metabolic Ccq902 A/ G Ratio 1.7 Ratio 12/21/2016 Comp Metabolic Eac504 Os mo 272 mOsmo 12/21/2016 Cbc With [...] 100.9 fl 12/21/2016 Cbc With Differential Ord2 [place]% 6.9 % 12/21/2016 Cbc With Differential Ord2 [...] 2.05 K/ul 12/21/2016 Cbc With Differential Ord2 [place] ABS# 0.4 K/ul 12/21/2016 Cbc With Differential Ord2 Eos ABS# 0.2 K/ul 12/21/2016 Cbc With Differential Ord2 Baso ABS# 0.0 K/ul 12/21/2016 Comp Metabolic Pgj850 NA 138 mEq/L 09/03/2016 Comp Metabolic Pot288 K 4.5 mEq/L 09/03/2016 Comp Metabolic Vsi997 CL 102 mEq/L 09/03/2016 Comp Metabolic Kmx620 CO2 30.0 mEq/L 09/03/2016 Comp Metabolic Rzu993 AN ION GAP 11 09/03/2016 Comp Metabolic Eke974 GL UCOSE 113 mg/dL 09/03/2016 Comp Metabolic Ulv451 Cr eat 1.0 mg/dL 09/03/2016 Comp Metabolic Drv951 eG FR 81 ml/min/1.73m2 09/03 Comp Metabolic Ftz706 BUN 10 mg/dL 09/03/2016 Comp Metabolic Hnd568 B/ C Ratio 10.5 Ratio 09/03/2016 Comp Metabolic Ujs269 CA LCIUM 9.1 mg/dL 09/03/2016 Comp Metabolic Ouq685 AL K PHOS 71 U/L 09/03/2016 Comp Metabolic Wxa663 T(SGOT) 18 U/L 09/03/2016 Comp Metabolic Wmg293 AL T(SGPT) 17 U/L 09/03/2016 Comp Metabolic Dqh115 BI LI T 0.6 mg/dL 09/03/2016 Comp Metabolic Zgi876 AL BUMIN 4.1 g/dL 09/03/2016 Comp Metabolic Kvj970 TP RO 6.4 g/dL 09/03/2016 Comp Metabolic Lqn401 GL OB 2.3 g/dL 09/03/2016 Comp Metabolic Nhy699 A/ G Ratio 1.8 Ratio 09/03/2016 Comp Metabolic Ued234 Os mo 276 mOsmo 09/03/2016 Vitamin D 25 Oh Srk0508 VITAMIN D, 25 HYDROXY 28.23 ng/mL 09/03/2016 [...] 34.4 pg 09/03/2016 Cbc With Differential Ord2 [place]% 8.9 % 09/03/2016 Cbc With Differential Ord2 [...] 3.34 K/ul 09/03/2016 Cbc With Differential Ord2 [place] ABS# 0.7 K/ul 09/03/2016 Cbc With Differential Ord2 Eos ABS# 0.4 K/ul 09/03/2016 Cbc With Differential Ord2 Baso ABS# 0.0 K/ul 09/03/2016 Lipid Ord30 CHOL 120 mg/dL 09/03/2016 Lipid Ord30 HDL 33.0 mg/dl 09/03/2016 Lipid Ord30 TRIG 161 mg/dL 09/03/2016 Lipid Ord30 LDL 55 mg/dL 09/03/2016 Lipid Ord30 C/HDL 3.6 Ratio 09/03/2016 %Hba1C Bdb597 % HbA1c 66220-8 7.5 % 09/03/2016 %Hba1C Coc839 Gluc Ave 169 mg/dL 09/03/2016 Tsh Ord6 hTSH II 1.50 uIU/mL 05/23/2016 %Hba1C Emy705 % HbA1c 66395-2 7.6 % 05/23/2016 %Hba1C Mvd465 Gluc Ave 171 mg/dL 05/23/2016 Comp Metabolic Sny263 NA 135 mEq/L 05/23/2016 Comp Metabolic Mwe604 K 4.4 mEq/L 05/23/2016 Comp Metabolic Lfz839 CL 99 mEq/L 05/23/2016 Comp Metabolic Qgs209 CO2 28.0 mEq/L 05/23/2016 Comp Metabolic Tvb438 AN ION GAP 12 05/23/2016 Comp Metabolic Ach708 GL UCOSE 257 mg/dL 05/23/2016 Comp Metabolic Olb658 Cr eat 0.8 mg/dL 05/23/2016 Comp Metabolic Uiq656 eG FR 95 ml/min/1.73m2 05/23 Comp Metabolic Kfg027 BUN 11 mg/dL 05/23/2016 Comp Metabolic Rqp819 B/ C Ratio 13.3 Ratio 05/23/2016 Comp Metabolic Gsn391 CA LCIUM 9.0 mg/dL 05/23/2016 Comp Metabolic Epd393 AL K PHOS 82 U/L 05/23/2016 Comp Metabolic Dbi833 T(SGOT) 21 U/L 05/23/2016 Comp Metabolic Lyp129 AL T(SGPT) 20 U/L 05/23/2016 Comp Metabolic Iuh459 BI LI T 0.3 mg/dL 05/23/2016 Comp Metabolic Saj342 AL BUMIN 4.0 g/dL 05/23/2016 Comp Metabolic Cat453 TP RO 6.4 g/dL 05/23/2016 Comp Metabolic Apf925 GL OB 2.4 g/dL 05/23/2016 Comp Metabolic Ucr934 A/ G Ratio 1.6 Ratio 05/23/2016 Comp Metabolic Vjj491 Os mo 278 mOsmo 05/23/2016 Cbc With [...] 34.5 pg 05/23/2016 Cbc With Differential Ord2 [place]% 6.1 % 05/23/2016 Cbc With Differential Ord2 [...] 2.38 K/ul 05/23/2016 Cbc With Differential Ord2 [place] ABS# 0.4 K/ul 05/23/2016 Cbc With Differential Ord2 Eos ABS# 0.2 K/ul 05/23/2016 Cbc With Differential Ord2 Baso ABS# 0.0 K/ul 05/23/2016 B12 Mse679 B12 597.00 pg/ml 05/23/2016 Metabolic Ord15 NA [...] 0.92 uIU/mL 07/29/2015 Vitamin D 25 Oh Fgn1379 VITAMIN D, 25 HYDROXY 26.93 ng/mL 07/29/2015 %Hba1C Qta898 % HbA1c 19628-7 8.8 % 07/29/2015 %Hba1C Cgg088 Gluc Ave 206 mg/dL 07/29/2015 Cbc With [...] Ord2 RDW 14.9 % 07/29/2015 Comp Metabolic Fdm314 NA 138 mEq/L 07/29/2015 Comp Metabolic Urh269 K 4.4 mEq/L 07/29/2015 Comp Metabolic Loq311 CL 102 mEq/L 07/29/2015 Comp Metabolic Vbs041 CO2 28.0 mEq/L 07/29/2015 Comp Metabolic Qtp725 AN ION GAP 12 07/29/2015 Comp Metabolic Ekc240 GL UCOSE 261 mg/dL 07/29/2015 Comp Metabolic Poe449 Cr eat 1.0 mg/dL 07/29/2015 Comp Metabolic Wet748 eG FR 77 ml/min/1.73m2 07/29 Comp Metabolic Thw185 BUN 13 mg/dL 07/29/2015 Comp Metabolic Nuf510 B/ C Ratio 13.0 Ratio 07/29/2015 Comp Metabolic Tct839 CA LCIUM 9.1 mg/dL 07/29/2015 Comp Metabolic Ynl781 AL K PHOS 64 U/L 07/29/2015 Comp Metabolic Wca404 T(SGOT) 20 U/L 07/29/2015 Comp Metabolic Jse060 AL T(SGPT) 22 U/L 07/29/2015 Comp Metabolic Umz455 BI LI T 0.4 mg/dL 07/29/2015 Comp Metabolic Fnx281 AL BUMIN 4.0 g/dL 07/29/2015 Comp Metabolic Kcq001 TP RO 6.1 g/dL 07/29/2015 Comp Metabolic Zyj146 GL OB 2.1 g/dL 07/29/2015 Comp Metabolic Bqu098 A/ G Ratio 1.9 Ratio 07/29/2015 Comp Metabolic Vuu272 Os mo 285 mOsmo 07/29/2015 Cbc With [...] Ord2 RDW 13.1 % 05/06/2015 Comp Metabolic Zzw210 NA 134 mEq/L 05/06/2015 Comp Metabolic Czt046 K 4.4 mEq/L 05/06/2015 Comp Metabolic Gcu769 CL 98 mEq/L 05/06/2015 Comp Metabolic Sln036 CO2 29.0 mEq/L 05/06/2015 Comp Metabolic Kyv217 AN ION GAP 11 05/06/2015 Comp Metabolic Dsl341 GL UCOSE 321 mg/dL 05/06/2015 Comp Metabolic Xwz904 Cr eat 1.0 mg/dL 05/06/2015 Comp Metabolic Fxs369 eG FR 78 ml/min/1.73m2 05/06 Comp Metabolic Nqa872 BUN 20 mg/dL 05/06/2015 Comp Metabolic Age559 B/ C Ratio 20.4 Ratio 05/06/2015 Comp Metabolic Bub662 CA LCIUM 9.5 mg/dL 05/06/2015 Comp Metabolic Fgg041 AL K PHOS 62 U/L 05/06/2015 Comp Metabolic Jnb475 T(SGOT) 21 U/L 05/06/2015 Comp Metabolic Jfl461 AL T(SGPT) 37 U/L 05/06/2015 Comp Metabolic Eor709 BI LI T 0.4 mg/dL 05/06/2015 Comp Metabolic Yco971 AL BUMIN 3.8 g/dL 05/06/2015 Comp Metabolic Kjh365 TP RO 6.1 g/dL 05/06/2015 Comp Metabolic Wvy048 GL OB 2.3 g/dL 05/06/2015 Comp Metabolic Fxt167 A/ G Ratio 1.7 Ratio 05/06/2015 Comp Metabolic Ult094 Os mo 283 mOsmo 05/06/2015 Tsh Ord6 hTSH II 1.65 uIU/mL 02/18/2015 B12 Ifr072 B12 605.00 pg/ml 02/18/2015 %Hba1C Ivm966 % HbA1c 88353-3 8.3 % 02/18/2015 %Hba1C Lbo564 Gluc Ave 192 mg/dL 02/18/2015 Cbc With [...] Ord2 RDW 13.9 % 02/17/2015 Comp Metabolic Wpn448 NA 137 mEq/L 02/17/2015 Comp Metabolic Whq821 K 4.4 mEq/L 02/17/2015 Comp Metabolic Ktf498 CL 100 mEq/L 02/17/2015 Comp Metabolic Kkt910 CO2 31.0 mEq/L 02/17/2015 Comp Metabolic Bnz183 AN ION GAP 10 02/17/2015 Comp Metabolic Ufo907 GL UCOSE 307 mg/dL 02/17/2015 Comp Metabolic Qrs946 Cr eat 1.0 mg/dL 02/17/2015 Comp Metabolic Fog005 eG FR 74 ml/min/1.73m2 02/17 Comp Metabolic Jsu204 BUN 22 mg/dL 02/17/2015 Comp Metabolic Iac130 B/ C Ratio 21.4 Ratio 02/17/2015 Comp Metabolic Uxa159 CA LCIUM 9.5 mg/dL 02/17/2015 Comp Metabolic Rjj767 AL K PHOS 78 U/L 02/17/2015 Comp Metabolic Ihl312 T(SGOT) 18 U/L 02/17/2015 Comp Metabolic Cdr412 AL T(SGPT) 32 U/L 02/17/2015 Comp Metabolic Kza417 BI LI T 0.5 mg/dL 02/17/2015 Comp Metabolic Ujm954 AL BUMIN 4.3 g/dL 02/17/2015 Comp Metabolic Szz961 TP RO 6.7 g/dL 02/17/2015 Comp Metabolic Nrk340 GL OB 2.4 g/dL 02/17/2015 Comp Metabolic Wcc783 A/ G Ratio 1.8 Ratio 02/17/2015 Comp Metabolic Qbm084 Os mo 289 mOsmo 02/17/2015 Review of Systems System Result Effective Dates Constitutional No recent illness 06/30/2018 Constitutional No [...] Procedure Codes Date THER/PROPH/DIAG INJ SC/IM CPT-4: 70449 08/21/2018 THER/PROPH/DIAG INJ SC/IM CPT-4: 48596 08/08/2018 THER/PROPH/DIAG INJ SC/IM CPT-4: 89576 07/28/2018 THER/PROPH/DIAG INJ SC/IM CPT-4: 83952 07/16/2018 THER/PROPH/DIAG INJ SC/IM CPT-4: 51598 07/02/2018 PPPS, SUBSEQ VISIT CPT- 4: G0439 06/30/2018 THER/PROPH/DIAG INJ SC/IM CPT-4: 51567 06/24/2018 THER/PROPH/DIAG INJ SC/IM CPT-4: 25028 06/13/2018 ADMIN INFLUENZA VIRU S VAC CPT-4: G0008 06/06/2018 FLU VACC PRSV FREE I NC ANTIG CPT-4: 50788 06/06/2018 THER/PROPH/DIAG INJ SC/IM CPT-4: 15348 06/05/2018 THER/PROPH/DIAG INJ SC/IM CPT-4: 86179 05/30/2018 THER/PROPH/DIAG INJ SC/IM CPT-4: 54602 05/22/2018 THER/PROPH/DIAG INJ SC/IM CPT-4: 70425 05/12/2018 THER/PROPH/DIAG INJ SC/IM CPT-4: 55332 05/02/2018 THER/PROPH/DIAG INJ SC/IM CPT-4: 72190 04/24/2018 THER/PROPH/DIAG INJ SC/IM CPT-4: 34132 04/17/2018 KETOROLAC TROMETHAMI NE INJ CPT-4: J1885 03/07/2018 URINALYSIS NONAUTO W /O SCOPE CPT-4: 89578 03/07/2018 THER/PROPH/DIAG INJ SC/IM CPT-4: 60475 02/20/2018 TRIAMCINOLONE ACET I [place] NOS CPT-4: J3301 01/30/2018 THER/PROPH/DIAG INJ SC/IM CPT-4: 56372 01/17/2018 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-[address]: 819676143 CPT-4: G0436 04/25/2017 ADMIN INFLUENZA VIRU S VAC CPT-4: G0008 04/25/2017 ADMIN PNEUMOCOCCAL V ACCINE SNOMED CT: 94653566 CPT-4: G0009 04/25/2017 PNEUMOCOCCAL VACC [address]: 28847620 CPT-4: 63055 04/25/2017 FLU VACC PRSV FREE I NC ANTIG CPT-4: 08438 04/25/2017 ADMIN INFLUENZA VIRU S VAC CPT-4: G0008 05/22/2016 FLU VACC 4 TELLY 3 YRS PLUS IM Formatting Model/CDA Sections, Assigned to/Angela Clemons SNOMED CT: 99089339 CPT-4: 62982Rxicbdr 05/22/2016 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-[address]: 089452386 CPT-4: G0436 11/25/2015 URINALYSIS NONAUTO W /O SCOPE CPT-4: 53539 05/09/2015 TRIAMCINOLONE ACET I [place] NOS CPT-4: J3301 04/12/2015 DESTRUCT PREMALG LESION CPT-4: 72631 03/07/2015 DESTRUCT PREMALG LES 2-14 CPT-4: 87508 03/07/2015 REMOVE IMPACTED EAR WAX UNI CPT-4: 55569 12/31/2014 THER/PROPH/DIAG INJ SC/IM CPT-4: 97787 12/23/2014 TRIAMCINOLONE ACET I [place] NOS CPT-4: J3301 12/23/2014 Vital Signs Date Vital 06/30/2018 BMI: 21.8 Code: 21452-9 Height: 5'11" Weight: 156 lbs 06/06/2018 Blood Pressure 1: 128/76 Code: 8480-6 BMI: 22.0 Code: 63344-8 Heart Rate 1: 81 bpm Height: 5'11" SpO2: 92% Weight: 158 lbs 04/04/2018 Blood Pressure 1: 124/70 Code: 8480-6 BMI: 20.8 Code: 45908-6 Heart Rate 1: 65 bpm Height: 5'11" SpO2: 95% Weight: 149 lbs 03/07/2018 Blood Pressure 1: 148/70 Code: 8480-6 BMI: 21.2 Code: 33931-3 Heart Rate 1: 66 bpm Height: 5'11" SpO2: 94% Weight: 152 lbs 02/20/2018 Blood Pressure 1: 134/58 Code: 8480-6 BMI: 20.5 Code: 52749-4 Heart Rate 1: 61 bpm Height: 5'11" SpO2: 92% Weight: 147 lbs 01/30/2018 Blood Pressure 1: 158/68 Code: 8480-6 BMI: 21.5 Code: 60964-9 Heart Rate 1: 71 bpm Height: 5'11" SpO2: 92% Weight: 154 lbs 01/14/2018 Blood Pressure 1: 156/70 Code: 8480-6 Height: Weight: 01/13/2018 Blood Pressure 1: 148/62 Code: 8480-6 BMI: 20.9 Code: 88581-7 Heart Rate 1: 54 bpm Height: 5'11" SpO2: 97% Weight: 150 lbs 11/19/2017 Blood Pressure 1: 150/60 Code: 8480-6 BMI: 21.8 Code: 33348-1 Heart Rate 1: 63 bpm Height: 5'11" SpO2: 98% Weight: 156 lbs 10/02/2017 Blood Pressure 1: 168/60 Code: 8480-6 BMI: 21.9 Code: 75145-2 Heart Rate 1: 52 bpm Height: 5'11" SpO2: 97% Weight: 157 lbs 07/23/2017 Blood Pressure 1: 170/70 Code: 8480-6 BMI: 21.8 Code: 28418-5 Heart Rate 1: 65 bpm Height: 5'11" SpO2: 98% Weight: 156 lbs 04/25/2017 Blood Pressure 1: 138/60 Code: 8480-6 BMI: 21.6 Code: 49570-2 Heart Rate 1: 55 bpm Height: 5'11" SpO2: 93% Weight: 155 lbs 02/19/2017 Blood Pressure 1: 138/64 Code: 8480-6 BMI: 21.3 Code: 06038-4 Heart Rate 1: 52 bpm Height: 5'11" SpO2: 96% Weight: 152 lbs 8 oz 01/21/2017 Blood Pressure 1: 160/68 Code: 8480-6 BMI: 21.3 Code: 92494-8 Heart Rate 1: 62 bpm Height: 5'11" SpO2: 96% Weight: 153 lbs 12/20/2016 Blood Pressure 1: 124/66 Code: 8480-6 BMI: 21.5 Code: 29999-5 Height: 5'11" Weight: 154 lbs 08/23/2016 Blood Pressure 1: 142/52 Code: 8480-6 BMI: 21.2 Code: 56160-5 Heart Rate 1: 54 bpm Height: 5'11" SpO2: 96% Weight: 152 lbs 05/22/2016 Blood Pressure 1: 130/76 Code: 8480-6 BMI: 21.5 Code: 61273-9 Heart Rate 1: 78 bpm Height: 5'11" SpO2: 92% Weight: 154 lbs 02/24/2016 Blood Pressure 1: 128/80 Code: 8480-6 BMI: 21.2 Code: 29994-5 Heart Rate 1: 74 bpm Height: 5'11" SpO2: 96% Weight: 152 lbs 01/27/2016 Blood Pressure 1: 144/60 Code: 8480-6 BMI: 21.2 Code: 22924-9 Heart Rate 1: 74 bpm Height: 5'11" SpO2: 97% Weight: 152 lbs 11/25/2015 Blood Pressure 1: 110/52 Code: 8480-6 BMI: 21.9 Code: 21930-9 Heart Rate 1: 65 bpm Height: 5'11" SpO2: 92% Weight: 157 lbs 07/28/2015 Blood Pressure 1: 138/62 Code: 8480-6 BMI: 21.8 Code: 92925-3 Heart Rate 1: 63 bpm Height: 5'11" SpO2: 91% Weight: 156 lbs 05/26/2015 Blood Pressure 1: 120/58 Code: 8480-6 BMI: 21.5 Code: 98250-3 Heart Rate 1: 99 bpm Height: 5'11" SpO2: 96% Weight: 154 lbs 05/06/2015 Blood Pressure 1: 120/58 Code: 8480-6 BMI: 21.2 Code: 18758-2 Heart Rate 1: 66 bpm Height: 5'11" SpO2: 96% Weight: 152 lbs 04/25/2015 Blood Pressure 1: 136/62 Code: 8480-6 BMI: 21.2 Code: 30096-2 Heart Rate 1: 63 bpm Height: 5'11" SpO2: 97% Weight: 152 lbs 04/12/2015 Blood Pressure 1: 160/58 Code: 8480-6 BMI: 21.6 Code: 63523-4 Heart Rate 1: 62 bpm Height: 5'11" Weight: 155 lbs 03/24/2015 Blood Pressure 1: 138/68 Code: 8480-6 BMI: 22.0 Code: 00080-5 Heart Rate 1: 65 bpm Height: 5'11" SpO2: 96% Weight: 158 lbs 03/07/2015 Blood Pressure 1: 116/52 Code: 8480-6 BMI: 22.2 Code: 74725-7 Heart Rate 1: 64 bpm Height: 5'11" SpO2: 97% Weight: 159 lbs 02/17/2015 Blood Pressure 1: 148/58 Code: 8480-6 BMI: 21.3 Code: 37288-7 Heart Rate 1: 63 bpm Height: 5'11" SpO2: 97% Weight: 153 lbs 12/31/2014 Blood Pressure 1: 100/60 Code: 8480-6 BMI: 21.8 Code: 81907-6 Heart Rate 1: 68 bpm Height: 5'11" Weight: 156 lbs 12/23/2014 Blood Pressure 1: 148/64 Code: 8480-6 BMI: 21.9 Code: 15593-1 Heart Rate 1: 64 bpm Height: 5'11" Weight: 157 lbs 12/09/2014 Blood Pressure 1: 152/62 Code: 8480-6 Heart Rate 1: 58 bpm SpO2: 98% Weight: 159 lbs Functional Status No Functional Status data History of Present Illness Symptom Name Status Resu lt Effective Date Notes Annual Medicare Wellness Exam Alcohol Use does [...] ongoing 03/07/2015 None Hospital Follow Up _ [facility] er: vertigo 03/07/2015 None Hospital Follow Up [...] Encounters Encounter Performer Loca tion Codes Date ([id number]) [id number] EST. P ATIENT, LEVEL IV Diagnosis: Cellulitis of face[ICD10: L03.211] Diagnosis: Type 2 diabetes mellitus without complications[ICD10: E11.9] Diagnosis: Essential (primary) hypertension[ICD10: I10] Diagnosis: Encounter for immunization[ICD10: Z23] Karmen Ash MD, [facility] CPT-4: 58605 06/06/2018 [id number]) [id number] EST. P ATIENT, LEVEL IV Diagnosis: Essential (primary) hypertension[ICD10: I10] Diagnosis: Chronic obstructive pulmonary disease, unspecified[ICD10: J44.9] Diagnosis: Testicular dysfunction, unspecified[ICD10: E29.9] Diagnosis: Type 2 diabetes mellitus with hyperglycemia[ICD10: E11.65] Karmen Ash MD, [facility] CPT-4: 75938 04/04/2018 [id number]) [id number] EST. P ATIENT, LEVEL III Diagnosis: Low back pain[ICD10: M54.5] Diagnosis: Dysuria[ICD10: R30.0] Karmen Ash MD, [facility] CPT-4: 13667 03/07/2018 [id number]) [id number] EST. P ATIENT, LEVEL IV Diagnosis: Essential (primary) hypertension[ICD10: I10] Diagnosis: Chronic obstructive pulmonary disease, unspecified[ICD10: J44.9] Diagnosis: Abnormal weight loss[ICD10: R63.4] Diagnosis: Low back pain[ICD10: M54.5] Diagnosis: Testicular dysfunction, unspecified[ICD10: E29.9] Diagnosis: Type 2 diabetes mellitus with hyperglycemia[ICD10: E11.65] Karmen Ash MD, [facility] CPT-4: 83581 02/20/2018 ([id number]) [id number] EST. P ATIENT, LEVEL III Diagnosis: Chronic obstructive pulmonary disease with (acute) exacerbation[ICD10: J44.1] Karmen Ash MD, [facility] CPT-4: 09034 01/30/2018 [id number] EST. PATIENT, LEVEL II Diagnosis: Insect bite (nonvenomous), left lower leg, initial encounter[ICD10: S80.862A] Karmen Ash MD, [facility] CPT-4: 25128 01/14/2018 ([id number]) 67340 EST. P ATIENT, LEVEL IV Diagnosis: Type 2 diabetes mellitus with hyperglycemia[ICD10: E11.65] Diagnosis: Chronic obstructive pulmonary disease, unspecified[ICD10: J44.9] Diagnosis: Other fatigue[ICD10: R53.83] Karmen Ash MD, [facility] CPT- 4: 27173 01/13/2018 ([id number]) 52968 EST. P ATIENT, LEVEL IV Diagnosis: Type 2 diabetes mellitus with hyperglycemia[ICD10: E11.65] Diagnosis: Vitamin D deficiency, unspecified[ICD10: E55.9] Diagnosis: Essential (primary) hypertension[ICD10: I10] Diagnosis: Abdominal distension (gaseous)[ICD10: R14.0] Diagnosis: Drug induced constipation[ICD10: K59.03] Karmen Ash MD, [facility] CPT-4: 94131 11/19/2017 27067 EST. PATIENT, LEVEL IV Diagnosis: Low back pain[ICD10: M54.5] Diagnosis: Chronic obstructive pulmonary disease, unspecified[ICD10: J44.9] Brunilda Ash MD, [facility] CPT-4: 76735 10/02/2017 ([id number]) 56681 EST. P ATIENT, LEVEL IV Diagnosis: Essential (primary) hypertension[ICD10: I10] Diagnosis: Type 2 diabetes mellitus with hyperglycemia[ICD10: E11.65] Diagnosis: Vitamin D deficiency, unspecified[ICD10: E55.9] Diagnosis: Mixed hyperlipidemia[ICD10: E78.2] Karmen Ash MD, [facility] CPT-4: 77851 07/23/2017 ([id number]) 07249 EST. P ATIENT, LEVEL IV Diagnosis: Essential (primary) hypertension[ICD10: I10] Diagnosis: Type 2 diabetes mellitus with hyperglycemia[ICD10: E11.65] Diagnosis: Chronic obstructive pulmonary disease, unspecified[ICD10: J44.9] Diagnosis: Nicotine dependence, unspecified, uncomplicated[ICD10: F17.200] Diagnosis: Encounter for immunization[ICD10: Z23] Karmen Ash MD, [facility] CPT-4: 84492 04/25/2017 ([id number]) 28952 EST. P ATIENT, LEVEL IV Diagnosis: Type 2 diabetes mellitus with hyperglycemia[ICD10: E11.65] Diagnosis: Essential (primary) hypertension[ICD10: I10] Diagnosis: Anemia, unspecified[ICD10: D64.9] Karmen Ash MD, [facility] CPT- 4: 35842 02/19/2017 ([id number]) 40872 EST. P ATIENT, LEVEL IV Diagnosis: Slow transit constipation[ICD10: K59.01] Diagnosis: Gastro-esophageal reflux disease without esophagitis[ICD10: K21.9] Diagnosis: Essential (primary) hypertension[ICD10: I10] Karmen Ash MD, [facility] CPT-4: 73641 01/21/2017 ([id number]) 11802 EST. P ATIENT, LEVEL IV Diagnosis: Type 2 diabetes mellitus with hyperglycemia[ICD10: E11.65] Diagnosis: Vitamin D deficiency, unspecified[ICD10: E55.9] Diagnosis: Essential (primary) hypertension[ICD10: I10] Diagnosis: Chronic obstructive pulmonary disease, unspecified[ICD10: J44.9] Karmen Ash MD, [facility] CPT-4: 25634 12/20/2016 ([id number]) 71112 EST. P ATIENT, LEVEL IV Diagnosis: Type 2 diabetes mellitus with hyperglycemia[ICD10: E11.65] Diagnosis: Essential (primary) hypertension[ICD10: I10] Diagnosis: Mixed hyperlipidemia[ICD10: E78.2] Diagnosis: Vitamin D deficiency, unspecified[ICD10: E55.9] Karmen Ash MD, [facility] CPT-4: 97425 08/23/2016 ([id number]) 50953 EST. P ATIENT, LEVEL IV Diagnosis: Type 2 diabetes mellitus with hyperglycemia[ICD10: E11.65] Diagnosis: Essential (primary) hypertension[ICD10: I10] Diagnosis: Chronic obstructive pulmonary disease, unspecified[ICD10: J44.9] Karmen Ash MD, [facility] CPT-4: 12437 05/22/2016 ([id number]) 15013 EST. P ATIENT, LEVEL III Diagnosis: Dysuria[ICD10: R30.0] Diagnosis: Essential (primary) hypertension[ICD10: I10] Karmen Ash MD, [facility] CPT-4: 21498 02/24/2016 ([id number]) 24292 EST. P ATIENT, LEVEL IV Diagnosis: Gastro-esophageal reflux disease without esophagitis[ICD10: K21.9] Diagnosis: Slow transit constipation[ICD10: K59.01] Diagnosis: Type 2 diabetes mellitus with hyperglycemia[ICD10: E11.65] Karmen Ash MD, [facility] CPT-4: 32748 01/27/2016 ([id number]) 55981 EST. P ATIENT, LEVEL IV Diagnosis: Essential (primary) hypertension[ICD10: I10] Diagnosis: Type 2 diabetes mellitus with hyperglycemia[ICD10: E11.65] Diagnosis: Vitamin D deficiency, unspecified[ICD10: E55.9] Diagnosis: Chronic obstructive pulmonary disease, unspecified[ICD10: J44.9] Diagnosis: Mixed hyperlipidemia[ICD10: E78.2] Diagnosis: Tobacco use[ICD10: Z72.0] Karmen Ash MD, [facility] CPT- 4: 91498 11/25/2015 ([id number]) 03620 EST. P ATIENT, LEVEL IV Diagnosis: Type 2 diabetes mellitus with hyperglycemia[ICD10: E11.65] Diagnosis: Essential (primary) hypertension[ICD10: I10] Diagnosis: Vitamin D deficiency, unspecified[ICD10: E55.9] Karmen Ash MD, [facility] CPT-4: 52408 07/28/2015 ([id number]) 96385 EST. P ATIENT, LEVEL III Diagnosis: Type 2 diabetes mellitus with hyperglycemia[ICD10: E11.65] Diagnosis: Essential (primary) hypertension[ICD10: I10] Violeta Ash MD, [facility] CPT-4: 76296 05/26/2015 ([id number]) 02773 EST. P ATIENT, LEVEL III Diagnosis: DIABETES TYPE II[ICD9: 250.00] Diagnosis: COPD (chronic obstructive pulmonary disease)[ICD9: 496] Diagnosis: ESSENTIAL HYPERTENSION[ICD9: 401.9] Diagnosis: Cough[ICD9: 786.2] Violeta Ash MD, [facility] CPT-4: 45725 05/06/2015 ([id number]) 19127 EST. P ATIENT, LEVEL III Diagnosis: COPD (chronic obstructive pulmonary disease)[ICD9: 496] Diagnosis: DIABETES TYPE II[ICD9: 250.00] Diagnosis: Muscle ache[ICD9: 729.1] Karmen Ash MD, [facility] CPT- 4: 63385 04/25/2015 ([id number]) 26490 EST. P ATIENT, LEVEL III Diagnosis: ACTINIC KERATOSIS[ICD9: 702.0] Diagnosis: COPD (chronic obstructive pulmonary disease)[ICD9: 496] Diagnosis: DIABETES TYPE II[ICD9: 250.00] Diagnosis: ACUTE URI[ICD9: 465.9] Violeta Ash MD, [facility] CPT-4: 06051 04/12/2015 ([id number]) 81926 EST. P ATIENT, LEVEL III Diagnosis: DIABETES TYPE II[ICD9: 250.00] Violeta Ash MD, [facility] CPT-4: 96167 03/24/2015 ([id number]) 83641 EST. P ATIENT, LEVEL IV Diagnosis: DIABETES TYPE II[ICD9: 250.00] Diagnosis: Hypoglycemia[ICD9: 251.2] Diagnosis: Skin texture changes[ICD9: 782.8] Violeta Ash MD, [facility] CPT-4: 29821 03/07/2015 ([id number]) 06811 EST. P ATIENT, LEVEL IV Diagnosis: COPD (chronic obstructive pulmonary disease)[ICD9: 496] Diagnosis: Fatigue[ICD9: 780.79] Diagnosis: Insulin dependent diabetes mellitus[ICD9: 250.00] Diagnosis: Unsteady gait[ICD9: 781.2] Maame Ash MD, [facility] CPT-4: 39836 02/17/2015 ([id number]) 20020 EST. [facility]: BPPV (benign paroxysmal positional vertigo)[ICD9: 386.11] Diagnosis: Impacted cerumen[ICD9: 380.4] Diagnosis: ESSENTIAL HYPERTENSION[ICD9: 401.9] Diagnosis: Insulin dependent diabetes mellitus[ICD9: 250.00] [facility] CPT-4: 41212 12/23/2014 ([id number]) OFFICE VISI , [facility] - LEVEL 4 Diagnosis: Insulin dependent diabetes mellitus[ICD9: 250.00] Diagnosis: BPPV (benign paroxysmal positional vertigo)[ICD9: 386.11] Diagnosis: COPD (chronic obstructive pulmonary disease)[ICD9: 496] Diagnosis: Tobacco abuse[ICD9: 305.1] Diagnosis: Osteoarthritis[ICD9: 715.90] [facility] CPT- 4: 39020 12/09/2014 Plan of Care Planned Activity Notes C odes Status Date Patient Education: Patient Medication Summary Completed 08/21/2018 [...] [phone] [phone] [facility] - Annual Wellness Visit 06/30/2018 Patient [...] [phone] [phone] (15 min) Moderate 06/06/2018 Patient Education: Patient [...] months 04/04/2018 Appointment: Karmen Espinal WPtel: [facility] [place] [address] (15 min) Moderate 04/04/2018 Patient Education: Patient Medication Summary Completed 04/04/2018 Care Plan: Cbc With Differential Pending 04/04/2018 Care Plan: Testosterone repeat in 2 months Pending 04/04/2018 Appointment: Karmen Espinal WPtel: [phone] [place] (15 min) Moderate 03/25/2018 Visit Plan: Low back pain -history of kidney stone-UA negative today -increase fluids and call if pain does not resolve or if any worse. 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 01/30/2018 Appointment: Karmen Espinal WPtel: [facility] [place] [address] (15 min) Moderate 01/30/2018 Patient Education: Patient Medication Summary Completed 01/30/2018 Appointment: Karmen Espinal WPtel: [facility] [place] [address] (15 min) Moderate 01/28/2018 Appointment: Injection 01/17/2018 Patient Education: Patient Medication Summary Completed 01/17/2018 Visit Plan: Cellulitis - start oral antibiotics as directed, return to clinic as previously directed, call for acute change in symptoms, worsening redness, warmth, discharge. 01/14/2018 Appointment: Karmen Espinal WPtel: [address] [place], [place] [phone] [place] [address] (10 min) Simple 01/14/2018 Patient Education: Patient [...] less controlled. 01/13/2018 Appointment: Karmen Espinal WPtel: [address] [place], [place] [phone] [place] [address] (15 min) Moderate 01/13/2018 Patient Education: Patient Medication Summary Completed 01/13/2018 Referral: Hugo Villatoro HPtel:[phone] Patient's informed. Referral info f porfirio. [...] change in blood pressure readings at home. Vuwslkue-bgrago-abqbq to see Dr Villatoro Constipation-start linzess daily 11/19/2017 Appointment: Karmen Espinal WPtel: [phone] (30 min) Complex 11/19/2017 Patient Education: Patient Medication Summary Completed 11/19/2017 Care Plan: Referral Order bloating, nausea SNOMED-CT : 793005244 Pending 11/19/2017 Visit Plan: Low back pain- [...] Mar[place] [facility]Ptel[facility] [phone] [phone] (15 min) Moderate 10/02/2017 Patient Education: Patient [...] controlled. 07/23/2017 Appointment: Karmen Espinal WPtel: [phone] [phone] (30 min) Complex 07/23/2017 Patient Education: Patient [...] [facility] [phone] [phone] (30 min) Complex 04/25/2017 Patient Education: Patient [...] readings are starting to become less controlled. Povspa-yefszhw-xvbjr labs 02/19/2017 Appointment: Karmen Espinal WPtel: [phone] [phone] (30 min) Complex 02/19/2017 Patient Education: Patient [...] month 01/21/2017 Appointment: Karmen Espinal WPtel: [phone] (30 min) Complex 01/21/2017 Patient Education: Patient Medication Summary Completed 01/21/2017 Patient Education: Smoking and Tobacco Addiction Completed 01/21/2017 Patient Education: Hypertension Completed 01/21/2017 Care Plan: Referral Order SNOMED-CT : 407517028 Pending 01/21/2017 Visit Plan: Diabetes Mellitus - [...] changes. 12/20/2016 Appointment: Karmen Espinal WPtel: [phone] [phone] (30 min) Complex 12/20/2016 Patient Education: Patient Medication Summary Completed 12/20/2016 Patient Education: Smoking and Tobacco Addiction Completed 12/20/2016 Patient Education: Hypertension Completed 12/20/2016 Appointment: Karmen Espinal WPtel: [facility] [place] [address] (30 min) Complex 09/06/2016 Visit Plan: Diabetes [...] d level 08/23/2016 Appointment: Teddy Karmen WPtel: [phone] (30 min) Complex 08/23/2016 Patient Education: [...] changes. 05/22/2016 Appointment: Karmen Espinal WPtel: [facility]5 [facility] [place] [address] (30 min) Complex 05/22/2016 Patient Education: Patient Medication Summary Completed 05/22/2016 Patient Education: Smoking and Tobacco Addiction Completed 05/22/2016 Care Plan: Cbc With Differential Ordered 05/22/2016 Care Plan: %Hba1C LOCELINA C : 33650-7 Ordered 05/22/2016 Care Plan: Tsh Ordered 05/22/2016 [...] update 02/24/2016 Appointment: Karmen Espinal WPtel: [facility]5 [phone] (30 min) [facility] 02/24/2016 Patient Education: Patient Medication Summary Completed [...] regimen. 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 Xmghtixl-nwbsrtxn-FPGQ SIMVASTATIN X 2 WEEKS AND CALL WITH [...] Care Plan: COMPLETE CBC AUTOMATED LOINC : 58078-4 Ordered 03/24/2015 Visit Plan: Diabetes Mellitus - [...] for removal. 03/07/2015 Appointment: Violeta Ash WPtel: [address] [place], [place] [id number] (15 min) Moderate 03/07/2015 Patient Education: Patient [...] hearing. The wax was removed [facility] the [facility] ct[facility] due to the wax being [...] Care Plan: COMPLETE CBC AUTOMATED LOINC : 71594-8 Ordered 12/23/2014 Visit Plan: BPPV - Benign [...] appt 12/09/2014 Appointment: Karmen Espinal WPtel: [phone] [phone] [place] ([place]) New Patient 12/09/2014 Patient Education: Patient Medication Summary Completed 12/09/2014 Patient Education: .Amazing charts Parox ysmal positional vertigo Completed 12/09/2014 Patient Education: Smoking and Tobacco Addiction Completed 12/09/2014 Referral: Hugo Villatoro HPtel:[phone] [id number] [place] Referral Appointment Requested Referral: Luis [...] as discussed-follow up in 1 month . Low back pain- the patient was [...] readings are starting to become less controlled. Ydcqpa-fsalfww-vdkat labs . COPD -recent pneum onia-symptoms have [...] at home-follow up in 1 month . Cerumen Impaction - The impacted cerumen [...] HS and will check at next appt CHECK UA TORADOL INCREASE PO FLUIDS STRETCHES [...] change in blood pressure readings at home. Qrlodjhd-vpdswd-mudpf to see Dr Villatoro Constipation-start linzess daily decrease glipizide t o 5mg twice daily [...] POTENTIAL SIDE EFFECTS AND WORSENING OF SYMPTOMS. Oofdoork-rvmowzsw-YZMY SIMVASTATIN X 2 WEEKS AND CALL WITH [...] use-schedule low dose CT chest-60 pack/year history KENALOG ANORO 1 INHALATION DAILY . COPD [...]
--- OUTSIDE RECORDS SUMMARY | 2020-03-29 09:24 | XMS REPORT | CCD ---
Author Author Dick Espinal Organization Violeta Ash MD, [facility] Address [address] [place] [address] Phone Care Team Providers Care Extension Service Specialist In Charge Name Role Phone PP Unavailable CCM Unavailable Summary Purpose Interface Exchange Insurance Providers Payer name Policy type / Coverage type Covered constitution party ID Effective Begin Date Effective End Date WPS Medicare Part B Medicare Part B [id number] Unknown Unknown [employer] Medicar e Part B [id number] Unknown Unkn own Family history Father Diagnosis Age At Onset Cancer Unknown Mother Diagnosis Age At Onset Cancer Unknown Social History Social History Element Codes Description Effective Dates Marital status Unknown M arried 12/09/2014 Employment Unknown Retir ed 12/09/[address]: 44553117 Currently smokes tobacco 12/09/2014 Number of years using tobacco Unknown > 50 12/09/2014 Number of cigarettes/day Unknown 30 (Pack and a half) 12/09/[address]: 495476765 Never drinks alcohol 12/09/2014 Allergies, Adverse Reactions, [...] 5 mg-linh taminophen 325 mg tablet RxNorm: 706212 1 Tablet(s) PO Q6-8H as needed 08/21/2018 09/14/2018 Active testosterone cypiona te 200 mg/mL intramuscular oil RxNorm: 0144387 Milliliter(s) IM 08/08/2018 08/08/2018 In active testosterone cypiona te 200 mg/mL intramuscular oil RxNorm: 9935679 1/2 Milliliter(s) IM 07/28/2018 07/28/2018 Inactive hydrocodone 5 mg-linh taminophen 325 mg tablet RxNorm: 573933 1 Tablet(s) PO Q6-8H as needed 07/21/2018 08/14/2018 Inactive testosterone cypiona te 200 mg/mL intramuscular oil RxNorm: 440788 Milliliter(s) IM 07/16/2018 07/16/2018 In active testosterone cypiona te 200 mg/mL intramuscular oil RxNorm: 214892 Milliliter(s) IM 07/02/2018 07/02/2018 In active Xanax 0.5 mg tablet RxNorm: 964321 1 Tablet(s) PO TID 06/27/2018 08/25/2018 Active testosterone cypiona te 200 mg/mL intramuscular oil RxNorm: 653884 Milliliter(s) IM 06/24/2018 06/24/2018 In active hydrocodone 5 mg-linh taminophen 325 mg tablet RxNorm: 627977 1 Tablet(s) PO Q6-8H as needed 06/23/2018 07/17/2018 Inactive testosterone cypiona te 200 mg/mL intramuscular oil RxNorm: 635988 Milliliter(s) IM 06/13/2018 06/13/2018 In active testosterone cypiona te 200 mg/mL intramuscular oil RxNorm: 670094 Milliliter(s) IM 06/05/2018 06/05/2018 In active testosterone cypiona te 200 mg/mL intramuscular oil RxNorm: 002491 1/2 Milliliter(s) IM weekly 05/30/2018 09/26/2018 Active testosterone cypiona te 200 mg/mL intramuscular oil RxNorm: 957571 Milliliter(s) IM 05/30/2018 05/30/2018 In active testosterone cypiona te 200 mg/mL intramuscular oil RxNorm: 258170 Milliliter(s) IM 05/22/2018 05/22/2018 In active hydrocodone 5 mg-linh taminophen 325 mg tablet RxNorm: 593306 1 Tablet(s) PO Q6-8H as needed 05/20/2018 06/13/2018 Inactive testosterone cypiona te 200 mg/mL intramuscular oil RxNorm: 319022 1/2 Milliliter(s) IM 05/12/2018 05/12/2018 Inactive testosterone cypiona te 200 mg/mL intramuscular oil RxNorm: 178146 Milliliter(s) IM 05/02/2018 05/02/2018 In active testosterone cypiona te 200 mg/mL intramuscular oil RxNorm: 263775 1/2 Milliliter(s) IM weekly 04/24/2018 05/29/2018 Inactive testosterone cypiona te 200 mg/mL intramuscular oil RxNorm: 444827 0.5 Milliliter(s) IM 04/24/2018 04/24/2018 Inactive hydrocodone 5 mg-linh taminophen 325 mg tablet RxNorm: 038831 1 Tablet(s) PO Q6-8H as needed 04/22/2018 05/16/2018 Inactive testosterone cypiona te 200 mg/mL intramuscular oil RxNorm: 338452 1/2 Milliliter(s) IM 04/17/2018 04/17/2018 Inactive testosterone cypiona te 200 mg/mL intramuscular oil RxNorm: 913330 1/2 Milliliter(s) IM weekly 04/16/2018 04/23/2018 Inactive Jardiance 10 mg tablet RxNorm: 6074325 1 Tablet(s) PO daily 04/04/2018 12/29/2018 Active Protonix 40 mg table t,delayed release RxNorm: 030110 1 Tablet(s) PO daily TAKE 1 TABLET BY MOUTH DAILY 04/04/2018 03/29/2019 Active - Ref: [id number] testosterone cypiona te 200 mg/mL intramuscular oil RxNorm: 770002 1 Milliliter(s) IM monthly 04/04/2018 04/15/2018 Inactive hydrocodone 5 mg-linh taminophen 325 mg tablet RxNorm: 437764 1 Tablet(s) PO Q6-8H as needed 03/19/2018 04/12/2018 Inactive Flomax 0.4 mg capsule RxNorm: 131757 1 Capsule(s) PO daily 03/10/2018 03/04/2019 Active Urecholine 25 mg tablet RxNorm: 294533 1 Tablet(s) PO BID 03/10/2018 07/07/2018 Inactive ketorolac 60 mg/2 mL intramuscular solution RxNorm: 2182553 Milliliter(s) IM 03/07/2018 03/07/2018 In active metformin 500 mg tablet RxNorm: 737838 Tablet(s) TAKE 1 TABLET BY MOUTH DAILY 02/20/2018 02/14/2019 Ac tive 1 q am and 1/2 tab q pm hydrocodone 5 mg-linh taminophen 325 mg tablet RxNorm: 832115 1 Tablet(s) PO Q6-8H as needed 02/20/2018 03/16/2018 Inactive Kenalog 40 mg/mL bartolome pension for injection RxNorm: 8110102 1.5 Milliliter(s) In j 01/30/2018 01/30/2018 In active hydrocodone 5 mg-linh taminophen 325 mg tablet RxNorm: 299761 1 Tablet(s) PO Q6-8H as needed 01/23/2018 02/16/2018 Inactive Urecholine 25 mg tablet RxNorm: 755641 1 Tablet(s) PO BID 01/22/2018 03/09/2018 Inactive Flomax 0.4 mg capsule RxNorm: 678005 1 Capsule(s) PO daily 01/22/2018 03/09/2018 Inactive Flomax 0.4 mg capsule RxNorm: 476283 1 Capsule(s) PO daily 01/22/2018 01/21/2018 Inactive Urecholine 25 mg tablet RxNorm: 834690 1 Tablet(s) PO BID 01/22/2018 01/21/2018 Inactive testosterone cypiona te 200 mg/mL intramuscular oil RxNorm: 865554 Milliliter(s) IM 01/17/2018 01/17/2018 In active testosterone cypiona te 200 mg/mL intramuscular oil RxNorm: 480365 1 Milliliter(s) IM monthly 01/17/2018 04/03/2018 Inactive lisinopril 10 mg tablet RxNorm: 327303 TAKE 1 TABLET BY MOUTH TWO TIMES DAILY 01/14/2018 01/08/2019 Ac tive - First Attempt Ref: [id number] doxycycline hyclate 100 mg tablet RxNorm: 151209 1 Tablet(s) PO BID 01/14/2018 01/23/2018 Inactive Xanax 0.5 mg tablet RxNorm: 695973 1 Tablet(s) PO TID 01/08/2018 04/06/2018 Inactive nystatin 100,000 uni t/mL oral suspension RxNorm: 958623 4 Milliliter(s) PO QI D Swish and swallow 01/08/2018 01/07/2018 Inactive nystatin 100,000 uni t/mL oral suspension RxNorm: 535826 4 Milliliter(s) PO QI D Swish and swallow 01/08/2018 01/12/2018 Inactive simvastatin 40 mg ta blet RxNorm: 873949 TAKE 1 TABLET BY MOUT H DAILY AT BEDTIME 12/30/2017 12/24/2018 Ac tive - First Attempt Ref: [id number] metformin 500 mg tablet RxNorm: 701981 TAKE 1 TABLET BY MOUTH DAILY 12/30/2017 02/19/2018 Inactive - First Attempt Ref: [id number] hydrocodone 5 mg-linh taminophen 325 mg tablet RxNorm: 177099 1 Tablet(s) PO Q6-8H as needed 12/25/2017 01/18/2018 Inactive Protonix 40 mg table t,delayed release RxNorm: 142103 Tablet(s) TAKE 1 TABL ET BY MOUTH DAILY 11/20/2017 04/03/2018 Inactive - Ref: [id number] Linzess 72 mcg capsule RxNorm: 2126727 1 Capsule(s) PO daily 11/19/2017 No Stop Date Active hydrocodone 5 mg-linh taminophen 325 mg tablet RxNorm: 661925 1 Tablet(s) PO Q6-8H as needed 11/19/2017 12/13/2017 Inactive hydrocodone 5 mg-linh taminophen 325 mg tablet RxNorm: 637026 1 Tablet(s) PO Q6-8H as needed 10/28/2017 11/18/2017 Inactive Xanax 0.5 mg tablet RxNorm: 951658 1 Tablet(s) PO TID 10/25/2017 12/22/2017 Inactive Xanax 0.5 mg tablet RxNorm: 045770 TAKE ONE TABLET BY MOUTH THREE TIMES A D AY 10/24/2017 12/22/2017 In active hydrocodone 5 mg-linh taminophen 325 mg tablet RxNorm: 368868 1 Tablet(s) PO Q6-8H as needed 09/30/2017 10/24/2017 Inactive Protonix 40 mg table t,delayed release RxNorm: 838751 TAKE 1 TABLET BY MOUT H DAILY 09/16/2017 11/19/2017 In active - Ref: [id number] Touparadiseo SoloStar 300 unit/mL (1.5 mL) subcutaneous insulin pen RxNorm: 8636928 35 Unit(s) SQ QHS 08/30/2017 No Stop Date Active dosage increase hydrocodone 5 mg-linh taminophen 325 mg tablet RxNorm: 563988 1 Tablet(s) PO Q6-8H as needed 08/28/2017 09/29/2017 Inactive hydrocodone 5 mg-linh taminophen 325 mg tablet RxNorm: 050265 1 Tablet(s) PO Q6-8H as needed 07/23/2017 08/24/2017 Inactive lisinopril 10 mg tablet RxNorm: 996043 1 Tablet(s) PO BID Take 1 tablet by mout h daily 07/23/2017 01/13/2018 Inactive hydrocodone 5 mg-linh taminophen 325 mg tablet RxNorm: 247129 1 Tablet(s) PO Q6-8H as needed 06/27/2017 07/22/2017 Inactive Xanax 0.5 mg tablet RxNorm: 372110 1 Tablet(s) PO TID 06/18/2017 10/25/2017 Inactive hydrocodone 5 mg-linh taminophen 325 mg tablet RxNorm: 015949 1 Tablet(s) PO Q6-8H as needed 05/27/2017 06/26/2017 Inactive Levaquin 500 mg tablet RxNorm: 611392 1 Tablet(s) PO daily 05/24/2017 05/23/2017 Inactive Levaquin 500 mg tablet RxNorm: 177973 1 Tablet(s) PO daily 05/24/2017 05/30/2017 Inactive Protonix 40 mg table t,delayed release RxNorm: 101919 Take 1 tablet by mout h daily 04/29/2017 09/15/2017 In active - Ref: [id number] hydrocodone 5 mg-linh taminophen 325 mg tablet RxNorm: 967397 1 Tablet(s) PO Q6-8H as needed 04/25/2017 05/26/2017 Inactive metformin 500 mg tablet RxNorm: 593665 Take 1 tablet by mouth daily 04/08/2017 12/29/2017 Inactive - First Attempt Ref: [id number] hydrocodone 5 mg-linh taminophen 325 mg tablet RxNorm: 048216 1 Tablet(s) PO Q6-8H as needed 03/27/2017 04/24/2017 Inactive hydrocodone 5 mg-linh taminophen 325 mg tablet RxNorm: 846776 1 Tablet(s) PO Q6-8H as needed 02/25/2017 03/26/2017 Inactive Protonix 40 mg table t,delayed release RxNorm: 693794 Tablet(s) Take 1 tabl et by mouth BID 02/25/2017 04/28/2017 Inactive Protonix 40 mg table t,delayed release RxNorm: 587059 Tablet(s) Take 1 tabl et by mouth BID 02/19/2017 02/18/2017 Inactive Protonix 40 mg table t,delayed release RxNorm: 051230 Tablet(s) Take 1 tabl et by mouth BID 02/19/2017 02/24/2017 Inactive lisinopril 10 mg tablet RxNorm: 944586 Take 1 tablet by mouth daily 01/29/2017 07/22/2017 Inactive - First Attempt Ref: [id number] hydrocodone 5 mg-linh taminophen 325 mg tablet RxNorm: 904903 1 Tablet(s) PO Q6-8H as needed 01/25/2017 02/24/2017 Inactive simvastatin 40 mg ta blet RxNorm: 453214 Tablet(s) Take 1 tabl et by mouth daily at bedtime 01/03/2017 12/28/2017 Inactive lisinopril 10 mg tablet RxNorm: 007578 Tablet(s) Take 1 tablet by mouth daily 01/03/2017 01/28/2017 In active Protonix 40 mg table t,delayed release RxNorm: 089836 Tablet(s) Take 1 tabl et by mouth daily 12/28/2016 02/18/2017 Inactive hydrocodone 5 mg-linh taminophen 325 mg tablet RxNorm: 224813 1 Tablet(s) PO Q6-8H as needed 12/26/2016 01/24/2017 Inactive Xanax 0.5 mg tablet RxNorm: 949471 1 Tablet(s) PO TID 12/12/2016 03/11/2017 Inactive simvastatin 40 mg ta blet RxNorm: 210646 Tablet(s) Take 1 tabl et by mouth daily at bedtime 11/30/2016 01/02/2017 Inactive simvastatin 40 mg ta blet RxNorm: 729524 Take 1 tablet by mout h daily at bedtime 11/29/2016 11/29/2016 In active - First Attempt Ref: [id number] Protonix 40 mg table t,delayed release RxNorm: 971865 Take 1 tablet by mout h daily 11/27/2016 12/27/2016 In active - First Attempt Ref: [id number] hydrocodone 5 mg-linh taminophen 325 mg tablet RxNorm: 480927 1 Tablet(s) PO Q6-8H as needed 11/26/2016 12/25/2016 Inactive hydrocodone 5 mg-linh taminophen 325 mg tablet RxNorm: 163775 1 Tablet(s) PO Q8 as needed 10/24/2016 11/25/2016 Inactive Xanax 0.5 mg tablet RxNorm: 545520 1 Tablet(s) PO TID 10/09/2016 12/25/2016 Inactive hydrocodone 5 mg-linh taminophen 325 mg tablet RxNorm: 287800 1 Tablet(s) PO Q8 as needed 09/27/2016 10/23/2016 Inactive lisinopril 10 mg tablet RxNorm: 317599 Take 1 tablet by mouth daily 09/25/2016 01/02/2017 Inactive - First Attempt Ref: [id number] Vitamin D2 50,000 un it capsule RxNorm: 154861 1 Capsule(s) PO QW 09/06/2016 No Stop Date Active hydrocodone 5 mg-linh taminophen 325 mg tablet RxNorm: 853333 1 Tablet(s) PO Q8 as needed 08/28/2016 09/26/2016 Inactive Toujeo SoloStar 300 unit/mL (1.5 mL) subcutaneous insulin pen RxNorm: 1993413 25 Unit(s) SQ QHS 08/23/2016 08/29/2017 Inactive dosage increase hydrocodone 5 mg-linh taminophen 325 mg tablet RxNorm: 719394 1 Tablet(s) PO Q8 as needed 07/26/2016 08/27/2016 Inactive Protonix 40 mg table t,delayed release RxNorm: 085707 Take 1 tablet by mout h daily 07/24/2016 11/26/2016 In active - First Attempt Ref: [id number] hydrocodone 5 mg-linh taminophen 325 mg tablet RxNorm: 659951 1 Tablet(s) PO Q8 as needed 06/19/2016 07/21/2016 Inactive Toujeo SoloStar 300 unit/mL (1.5 mL) subcutaneous insulin pen RxNorm: 6639516 32 Unit(s) SQ QHS 05/30/2016 08/22/2016 Inactive dosage increase hydrocodone 5 mg-linh taminophen 325 mg tablet RxNorm: 250630 1 Tablet(s) PO Q8 as needed 05/22/2016 06/18/2016 Inactive hydrocodone 5 mg-linh taminophen 325 mg tablet RxNorm: 437537 1 Tablet(s) PO Q8 as needed 04/18/2016 05/17/2016 Inactive Protonix 40 mg table t,delayed release RxNorm: 557983 Take 1 tablet by mout h daily 04/05/2016 07/03/2016 In active - Ref: [id number] metformin 500 mg tablet RxNorm: 568914 Take 1 tablet by mouth daily 04/04/2016 07/02/2016 Inactive - Ref: [id number] Xanax 0.5 mg tablet RxNorm: 536358 1 Tablet(s) PO TID 03/30/2016 09/25/2016 Inactive Xanax 0.5 mg tablet RxNorm: 419400 1 Tablet(s) PO TID 03/23/2016 12/25/2016 Inactive hydrocodone 5 mg-linh taminophen 325 mg tablet RxNorm: 014615 1 Tablet(s) PO Q8 as needed 03/06/2016 04/04/2016 Inactive Cipro 500 mg tablet RxNorm: 469276 1 Tablet(s) PO BID 02/24/2016 03/04/2016 Inactive Miralax 17 gram oral powder packet RxNorm: 896281 1 packet PO every oth er day 01/27/2016 No Stop Date Active hydrocodone 5 mg-linh taminophen 325 mg tablet RxNorm: 216142 1 Tablet(s) PO Q8 as needed 01/27/2016 02/25/2016 Inactive lisinopril 10 mg tablet RxNorm: 393452 1 Tablet(s) PO daily 01/12/2016 09/24/2016 Inactive simvastatin 40 mg ta blet RxNorm: 561759 1 Tablet(s) PO QHS 01/12/2016 11/28/2016 Inactive simvastatin 40 mg ta blet RxNorm: 832454 1 Tablet(s) PO QHS 01/11/2016 01/11/2016 Inactive lisinopril 10 mg tablet RxNorm: 430272 1 Tablet(s) PO daily 01/06/2016 01/11/2016 Inactive simvastatin 40 mg ta blet RxNorm: 229543 1 Tablet(s) PO daily 12/28/2015 01/10/2016 Inactive hydrocodone 5 mg-linh taminophen 325 mg tablet RxNorm: 982283 1 Tablet(s) PO Q8 as needed 12/27/2015 01/26/2016 Inactive Xanax 0.5 mg tablet RxNorm: 873435 1 Tablet(s) PO TID 11/30/2015 03/29/2016 Inactive meclizine 25 mg tablet RxNorm: 520560 1 Tablet(s) PO Q6 PRN TAKE ONE TABLET BY MOUTH EVERY 6 HOURS NEEDED 11/25/2015 02/22/2016 Inactive Toujeo SoloStar 300 unit/mL (1.5 mL) subcutaneous insulin pen RxNorm: 1946170 30 Unit(s) SQ QHS 11/25/2015 05/29/2016 Inactive dosage increase omeprazole 20 mg cap jacquelyn,delayed release RxNorm: 679166 1 Capsule(s) PO daily 10/06/2015 01/26/2016 In active Toujeo SoloStar 300 unit/mL (1.5 mL) subcutaneous insulin pen RxNorm: 4834707 35 Unit(s) SQ QHS 08/02/2015 11/24/2015 Inactive dosage increase Vitamin D2 50,000 un it capsule RxNorm: 174142 1 Capsule(s) PO QW 08/02/2015 09/05/2016 Inactive hydrocodone 5 mg-linh taminophen 325 mg tablet RxNorm: 294155 1 Tablet(s) PO Q8 as needed 07/11/2015 12/26/2015 Inactive Xanax 0.5 mg tablet RxNorm: 093548 1 Tablet(s) PO TID 06/30/2015 06/29/2015 Inactive Xanax 0.5 mg tablet RxNorm: 695800 1 Tablet(s) PO TID 06/30/2015 12/25/2015 Inactive hydrocodone 5 mg-linh taminophen 325 mg tablet RxNorm: 306612 1 Tablet(s) PO Q8 as needed 05/06/2015 07/10/2015 Inactive Symbicort 160 mcg-4. 5 mcg/actuation HFA aerosol inhaler RxNorm: 8457185 INH 04/25/2015 No Stop Date Active Levemir FlexTouch 10 0 unit/mL (3 mL) subcutaneous insulin pen RxNorm: 531503 30 Unit(s) SQ QHS 04/25/2015 11/24/2015 Inactive prednisone 20 mg tablet RxNorm: 829157 1 Tablet(s) PO BID 04/25/2015 04/29/2015 Inactive metformin 500 mg tablet RxNorm: 046340 1 Tablet(s) PO daily 04/25/2015 04/03/2016 Inactive amoxicillin 500 mg c apsule RxNorm: 461051 1 Capsule(s) PO TID 04/14/2015 04/13/2015 Inactive amoxicillin 500 mg c apsule RxNorm: 308383 1 Capsule(s) PO TID a nd recommend probiotic tid (otc) 04/14/2015 04/20/2015 Inactive Kenalog 40 mg/mL bartolome pension for injection RxNorm: 6955197 Milliliter(s) Inj 04/12/2015 04/12/2015 In active hydrocodone 5 mg-linh taminophen 325 mg tablet RxNorm: 957300 1 Tablet(s) PO Q8 as needed 03/30/2015 05/05/2015 Inactive Lantus 100 unit/mL s ubcutaneous solution RxNorm: 398166 25 Unit(s) SQ QPM 03/24/2015 04/25/2015 In active meclizine 25 mg tablet RxNorm: 096763 Tablet(s) TAKE ONE TABLET BY MOUTH EVERY 6 HOURS NEEDED 03/08/2015 04/06/2015 Inactive meclizine 25 mg tablet RxNorm: 775578 TAKE ONE TABLET BY MOUTH EVERY 6 HOURS A S NEEDED 02/25/2015 03/03/2015 Inactive Lantus 100 unit/mL s ubcutaneous solution RxNorm: 679924 20 Unit(s) SQ QPM 02/23/2015 03/23/2015 In active Lantus 100 unit/mL s ubcutaneous solution RxNorm: 644376 25 Unit(s) SQ QPM 02/23/2015 02/22/2015 In active hydrocodone 5 mg-linh taminophen 325 mg tablet RxNorm: 044524 1 Tablet(s) PO Q8 as needed 02/17/2015 03/29/2015 Inactive Xanax 0.5 mg tablet RxNorm: 546060 1 Tablet(s) PO TID 02/03/2015 06/29/2015 Inactive Lantus 100 unit/mL s ubcutaneous solution RxNorm: 495272 20 Unit(s) SQ QPM 12/29/2014 02/22/2015 In active Phenergan 12.5 mg re ctal suppository RxNorm: 838770 1 Suppository RTL Q6 PRN 12/23/2014 No Stop Date Active nausea Kenalog 40 mg/mL bartoolme pension for injection RxNorm: 0051686 Milliliter(s) Inj 12/23/2014 12/23/2014 In active prednisone 20 mg tablet RxNorm: 480765 2 Tablet(s) PO daily 12/13/2014 12/17/2014 Inactive prednisone 20 mg tablet RxNorm: 238664 2 Tablet(s) PO daily 12/13/2014 12/12/2014 Inactive meclizine 25 mg tablet RxNorm: 684221 1 Tablet(s) PO Q6 PRN 12/09/2014 02/24/2015 Inactive hydrocodone 5 mg-linh taminophen 325 mg tablet RxNorm: 465370 1 Tablet(s) PO Q8 as needed 12/09/2014 02/16/2015 Inactive Vitamin B-12 1,000 m cg/mL oral drops RxNorm: 3614978 1 Milliliter(s) PO d aily No Start Date Active Alphagan P 0.1 % eye drops RxNorm: 554153 1 Drop(s) OPH BID No Start Date Active aspirin 325 mg table t,delayed release RxNorm: 375301 1 Tablet(s) PO daily No Start Date Active Tricor 145 mg tablet RxNorm: 145999 1 Tablet(s) PO daily No Start Date Active vitamin [id number] B1 oral liquid RxNorm: 1,000 Microgram(s) PO daily No Start Date Active atenolol 50 mg tablet RxNorm: 648095 1 Tablet(s) PO daily No Start Date Active Protonix 40 mg table t,delayed release RxNorm: 677116 1 Tablet(s) PO daily No Start Date 04/04/2016 Inactive glipizide 10 mg tablet RxNorm: 851288 1 Tablet(s) PO BID No Start Date 03/22/2015 Inactive Lantus 100 unit/mL s ubcutaneous solution RxNorm: 835388 15 Unit(s) SQ QPM No Start Date 12/28/2014 Inactive lisinopril 10 mg tablet RxNorm: 872014 1 Tablet(s) PO daily No Start Date 01/05/2016 Inactive Vitamin D2 50,000 un it capsule RxNorm: 526349 1 Capsule(s) PO QW No Start Date 08/01/2015 Inactive Toujeo SoloStar 300 unit/mL (1.5 mL) subcutaneous insulin pen RxNorm: 9213653 30 Unit(s) SQ QHS No Start Date 08/01/2015 Inactive simvastatin 40 mg ta blet RxNorm: 496076 1 Tablet(s) PO daily No Start Date 12/27/2015 Inactive testosterone cypiona te 200 mg/mL intramuscular oil RxNorm: 151538 1 Milliliter(s) IM monthly No Start Date 01/16/2018 Inactive hydrocodone 5 mg-linh taminophen 325 mg tablet RxNorm: 885524 1 Tablet(s) PO Q8 as needed No Start Date 12/08/2014 Inactive metformin 500 mg tablet RxNorm: 438463 1 Tablet(s) PO daily No Start Date 04/24/2015 Inactive omeprazole 20 mg cap jacquelyn,delayed release RxNorm: 875175 1 Capsule(s) PO daily No Start Date 10/05/2015 Inactive Flomax 0.4 mg capsule RxNorm: 320693 1 Capsule(s) PO daily No Start Date 03/23/2015 Inactive Medication Administered Medication Codes Instruc tions Start Date Status testosterone cypionate 200 mg/mL intramuscular oil RxNorm: 3816197 Milliliter 08/08/2018 No longer Active testosterone cypionate 200 mg/mL intramuscular oil RxNorm: 0553670 1/2Milliliter 07/28/2018 No longer Active testosterone cypionate 200 mg/mL intramuscular oil RxNorm: 651011 Milliliter 07/16/2018 No longer Active testosterone cypionate 200 mg/mL intramuscular oil RxNorm: 031324 Milliliter 07/02/2018 No longer Active testosterone cypionate 200 mg/mL intramuscular oil RxNorm: 133064 Milliliter 06/24/2018 No longer Active testosterone cypionate 200 mg/mL intramuscular oil RxNorm: 127598 Milliliter 06/13/2018 No longer Active testosterone cypionate 200 mg/mL intramuscular oil RxNorm: 656241 Milliliter 06/05/2018 No longer Active testosterone cypionate 200 mg/mL intramuscular oil RxNorm: 531064 Milliliter 05/30/2018 No longer Active testosterone cypionate 200 mg/mL intramuscular oil RxNorm: 551192 Milliliter 05/22/2018 No longer Active testosterone cypionate 200 mg/mL intramuscular oil RxNorm: 194458 1/2Milliliter 05/12/2018 No longer Active testosterone cypionate 200 mg/mL intramuscular oil RxNorm: 611056 Milliliter 05/02/2018 No longer Active testosterone cypionate 200 mg/mL intramuscular oil RxNorm: 830995 0.5Milliliter 04/24/2018 No longer Active testosterone cypionate 200 mg/mL intramuscular oil RxNorm: 261606 1/2Milliliter 04/17/2018 No longer Active ketorolac 60 mg/2 mL intramuscular solution RxNorm: 8881454 Milliliter 03/07/2018 No longer Active Kenalog 40 mg/mL suspension for injection RxNorm: 7657246 1.5Milliliter 01/30/2018 No longer Active testosterone cypionate 200 mg/mL intramuscular oil RxNorm: 623482 Milliliter 01/17/2018 No longer Active Kenalog 40 mg/mL suspension for injection RxNorm: 9982453 Milliliter 04/12/2015 No longer Active Kenalog 40 mg/mL suspension for injection RxNorm: 9638069 Milliliter 12/23/2014 No longer Active Immunizations Vaccine Codes Date Status Influenza CVX: 141 06/06 completed Influenza CVX: 141 04/25 completed Pneumococcal (Adult) CVX: 133 04/25/2017 completed Influenza CVX: 141 05/22 completed Assessments Condition Codes Effectiv e Dates Testicular dysfunction, unspecified ICD-10: E29.9 ICD-9: 257.9 08/08/2018 Encounter for general adult medical exam ination [...] 783.21 02/20/2018 Chronic obstructive pulmonary disease wi (acute) exacerbation ICD-10: J44.1 ICD-9: 491.21 01/30/2018 [...] Item Item Code Result Date Comp Metabolic Dkg079 NA 139 mEq/L 04/01/2018 Comp Metabolic Oyz471 K 4.2 mEq/L 04/01/2018 Comp Metabolic Lyl607 CL 102 mEq/L 04/01/2018 Comp Metabolic Kmc459 CO2 29.0 mEq/L 04/01/2018 Comp Metabolic Ngr886 AN ION GAP 12 04/01/2018 Comp Metabolic Yzl337 GL UCOSE 87 mg/dL 04/01/2018 Comp Metabolic Ozd381 Cr eat 1.1 mg/dL 04/01/2018 Comp Metabolic Crf262 eG FR 70 ml/min/1.73m2 04/01 Comp Metabolic Vay227 BUN 21 mg/dL 04/01/2018 Comp Metabolic Slt718 B/ C Ratio 19.4 Ratio 04/01/2018 Comp Metabolic Ihp711 CA LCIUM 9.1 mg/dL 04/01/2018 Comp Metabolic Lkg073 AL K PHOS 60 U/L 04/01/2018 Comp Metabolic Aro815 T(SGOT) 15 U/L 04/01/2018 Comp Metabolic Dgv930 AL T(SGPT) 18 U/L 04/01/2018 Comp Metabolic Dyn508 BI LI T 0.4 mg/dL 04/01/2018 Comp Metabolic Loh850 AL BUMIN 4.0 g/dL 04/01/2018 Comp Metabolic Ycl258 TP RO 6.5 g/dL 04/01/2018 Comp Metabolic Ybt835 GL OB 2.5 g/dL 04/01/2018 Comp Metabolic Aol223 A/ G Ratio 1.6 Ratio 04/01/2018 Comp Metabolic Dxn201 Os mo 280 mOsmo 04/01/2018 Lipid Ord30 [...] 101.6 fl 04/01/2018 Cbc With Differential Ord2 Juncos% 6.0 % 04/01/2018 Cbc With Differential Ord2 [...] 3.25 K/ul 04/01/2018 Cbc With Differential Ord2 Juncos ABS# 0.6 K/ul 04/01/2018 Cbc With Differential Ord2 Eos ABS# 0.4 K/ul 04/01/2018 Cbc With Differential Ord2 Baso ABS# 0.0 K/ul 04/01/2018 %Hba1C Gco929 % HbA1c 70522-3 8.0 % 04/01/2018 %Hba1C Jvd692 Gluc Ave 183 mg/dL 04/01/2018 Testosterone Tbb444 Testo 111.3 ng/dL 04/01/2018 Testosterone Ayu687 Testo 135.4 ng/dL 01/14/2018 Cbc With Differential [...] 36.0 pg 01/14/2018 Cbc With Differential Ord2 Juncos% 6.8 % 01/14/2018 Cbc With Differential Ord2 MCHC 35.4 pg 01/14/2018 Cbc With Differential Ord2 Eos% 2.0 % 01/14/2018 Cbc With Differential Ord2 PLT 263 K/ul 01/14/2018 Cbc With Differential Ord2 Baso% 0.1 % 01/14/2018 Cbc With Differential Ord2 Neut ABS# 8.25 K/ul 01/14/2018 Cbc With Differential Ord2 RDW 13.3 % 01/14/2018 Cbc With Differential Ord2 Lymph ABS# 2.71 K/ul 01/14/2018 Cbc With Differential Ord2 Juncos ABS# 0.8 K/ul 01/14/2018 Cbc With Differential Ord2 Eos ABS# 0.2 K/ul 01/14/2018 Cbc With Differential Ord2 Baso ABS# 0.0 K/ul 01/14/2018 Comp Metabolic Ney988 NA 134 mEq/L 11/20/2017 Comp Metabolic Khb728 K 4.4 mEq/L 11/20/2017 Comp Metabolic Epg530 CL 99 mEq/L 11/20/2017 Comp Metabolic Igj301 CO2 29.0 mEq/L 11/20/2017 Comp Metabolic Uft911 AN ION GAP 10 11/20/2017 Comp Metabolic Yfz463 GL UCOSE 218 mg/dL 11/20/2017 Comp Metabolic Ola620 Cr eat 1.0 mg/dL 11/20/2017 Comp Metabolic Zoq544 eG FR 78 ml/min/1.73m2 11/20 Comp Metabolic Xmk029 BUN 13 mg/dL 11/20/2017 Comp Metabolic Cnw076 B/ C Ratio 13.3 Ratio 11/20/2017 Comp Metabolic Oim803 CA LCIUM 9.0 mg/dL 11/20/2017 Comp Metabolic Qvk281 AL K PHOS 71 U/L 11/20/2017 Comp Metabolic Ing510 T(SGOT) 18 U/L 11/20/2017 Comp Metabolic Tdz291 AL T(SGPT) 17 U/L 11/20/2017 Comp Metabolic Jgl939 BI LI T 0.4 mg/dL 11/20/2017 Comp Metabolic Ekd267 AL BUMIN 4.1 g/dL 11/20/2017 Comp Metabolic Oqc196 TP RO 6.5 g/dL 11/20/2017 Comp Metabolic Smz573 GL OB 2.4 g/dL 11/20/2017 Comp Metabolic Iyl730 A/ G Ratio 1.8 Ratio 11/20/2017 Comp Metabolic Lmo656 Os mo 275 mOsmo 11/20/2017 Cbc With [...] 35.2 pg 11/20/2017 Cbc With Differential Ord2 Juncos% 7.2 % 11/20/2017 Cbc With Differential Ord2 [...] 3.34 K/ul 11/20/2017 Cbc With Differential Ord2 Juncos ABS# 0.6 K/ul 11/20/2017 Cbc With Differential Ord2 Eos ABS# 0.3 K/ul 11/20/2017 Cbc With Differential Ord2 Baso ABS# 0.0 K/ul 11/20/2017 Vitamin D 25 Oh Myo5850 VITAMIN D, 25 HYDROXY 43.72 ng/mL 11/20/2017 %Hba1C Aqp004 % HbA1c 80314-8 7.4 % 11/20/2017 %Hba1C Mdl669 Gluc Ave 166 mg/dL 11/20/2017 %Hba1C Nvy214 % HbA1c 59661-8 7.2 % 08/20/2017 %Hba1C Ktf300 Gluc Ave 160 mg/dL 08/20/2017 Lipid Ord30 [...] 34.7 pg 08/20/2017 Cbc With Differential Ord2 Juncos% 7.6 % 08/20/2017 Cbc With Differential Ord2 [...] 2.42 K/ul 08/20/2017 Cbc With Differential Ord2 Juncos ABS# 0.6 K/ul 08/20/2017 Cbc With Differential Ord2 Eos ABS# 0.3 K/ul 08/20/2017 Cbc With Differential Ord2 Baso ABS# 0.0 K/ul 08/20/2017 Tsh Ord6 hTSH II 2.27 uIU/mL 08/20/2017 Comp Metabolic Zia782 NA 138 mEq/L 08/20/2017 Comp Metabolic Oke266 K 4.3 mEq/L 08/20/2017 Comp Metabolic Nnk361 CL 102 mEq/L 08/20/2017 Comp Metabolic Xmo477 CO2 29.0 mEq/L 08/20/2017 Comp Metabolic Ppd060 AN ION GAP 11 08/20/2017 Comp Metabolic Cdw991 GL UCOSE 89 mg/dL 08/20/2017 Comp Metabolic Ded829 Cr eat 1.0 mg/dL 08/20/2017 Comp Metabolic Fpo245 eG FR 80 ml/min/1.73m2 08/20 Comp Metabolic Arh781 BUN 13 mg/dL 08/20/2017 Comp Metabolic Paq552 B/ C Ratio 13.5 Ratio 08/20/2017 Comp Metabolic Qwm951 CA LCIUM 9.2 mg/dL 08/20/2017 Comp Metabolic Azn359 AL K PHOS 69 U/L 08/20/2017 Comp Metabolic Wpw027 T(SGOT) 18 U/L 08/20/2017 Comp Metabolic Hyo159 AL T(SGPT) 19 U/L 08/20/2017 Comp Metabolic Gnd805 BI LI T 0.6 mg/dL 08/20/2017 Comp Metabolic Pjk799 AL BUMIN 4.0 g/dL 08/20/2017 Comp Metabolic Bqf949 TP RO 6.6 g/dL 08/20/2017 Comp Metabolic Ank430 GL OB 2.6 g/dL 08/20/2017 Comp Metabolic Jzg420 A/ G Ratio 1.5 Ratio 08/20/2017 Comp Metabolic Mlz716 Os mo 275 mOsmo 08/20/2017 Vitamin D 25 Oh Ail2859 VITAMIN D, 25 HYDROXY 30.96 ng/mL 08/20/2017 B12 Tpd642 B12 >1500.00 pg/ml 02/22/2017 Cbc With Differential [...] 35.7 pg 02/20/2017 Cbc With Differential Ord2 Juncos% 6.3 % 02/20/2017 Cbc With Differential Ord2 Eos% 4.6 % 02/20/2017 Cbc With Differential Ord2 MCHC 33.5 pg 02/20/2017 Cbc With Differential Ord2 Baso% 0.4 % 02/20/2017 Cbc With Differential Ord2 PLT 205 K/ul 02/20/2017 Cbc With Differential Ord2 RDW 14.9 % 02/20/2017 Cbc With Differential Ord2 Neut ABS# 4.37 K/ul 02/20/2017 Cbc With Differential Ord2 Lymph ABS# 3.19 K/ul 02/20/2017 Cbc With Differential Ord2 Juncos ABS# 0.5 K/ul 02/20/2017 Cbc With Differential Ord2 Eos ABS# 0.4 K/ul 02/20/2017 Cbc With Differential Ord2 Baso ABS# 0.0 K/ul 02/20/2017 Comp Metabolic Ywl535 NA 138 mEq/L 02/20/2017 Comp Metabolic Kfz300 K 4.5 mEq/L 02/20/2017 Comp Metabolic Rnk991 CL 101 mEq/L 02/20/2017 Comp Metabolic Usb687 CO2 31.0 mEq/L 02/20/2017 Comp Metabolic Vpi485 AN ION GAP 11 02/20/2017 Comp Metabolic Fyz674 GL UCOSE 120 mg/dL 02/20/2017 Comp Metabolic Psq318 Cr eat 0.9 mg/dL 02/20/2017 Comp Metabolic Ppk002 eG FR 83 ml/min/1.73m2 02/20 Comp Metabolic Rwv989 BUN 15 mg/dL 02/20/2017 Comp Metabolic Gls746 B/ C Ratio 16.1 Ratio 02/20/2017 Comp Metabolic Chh331 CA LCIUM 9.1 mg/dL 02/20/2017 Comp Metabolic Cna015 AL K PHOS 67 U/L 02/20/2017 Comp Metabolic Udn642 T(SGOT) 15 U/L 02/20/2017 Comp Metabolic Wop313 AL T(SGPT) 16 U/L 02/20/2017 Comp Metabolic Gee262 BI LI T 0.5 mg/dL 02/20/2017 Comp Metabolic Yby357 AL BUMIN 4.0 g/dL 02/20/2017 Comp Metabolic Ltl891 TP RO 6.4 g/dL 02/20/2017 Comp Metabolic Mcj566 GL OB 2.4 g/dL 02/20/2017 Comp Metabolic Nhg332 A/ G Ratio 1.7 Ratio 02/20/2017 Comp Metabolic Dbk315 Os mo 278 mOsmo 02/20/2017 Tsh Ord6 hTSH II 2.05 uIU/mL 02/20/2017 %Hba1C Kew418 % HbA1c 09361-9 7.6 % 02/20/2017 %Hba1C Tbv673 Gluc Ave 171 mg/dL 02/20/2017 Vitamin D 25 Oh Bqx3093 VITAMIN D, 25 HYDROXY 44.40 ng/mL 12/21/2016 Comp Metabolic Usb653 NA 131 mEq/L 12/21/2016 Comp Metabolic Plt412 K 4.2 mEq/L 12/21/2016 Comp Metabolic Sua684 CL 97 mEq/L 12/21/2016 Comp Metabolic Tkk162 CO2 27.0 mEq/L 12/21/2016 Comp Metabolic Qfj474 AN ION GAP 11 12/21/2016 Comp Metabolic Afy663 GL UCOSE 266 mg/dL 12/21/2016 Comp Metabolic Tzq754 Cr eat 0.9 mg/dL 12/21/2016 Comp Metabolic Lhr319 eG FR 88 ml/min/1.73m2 12/21 Comp Metabolic Wqu056 BUN 12 mg/dL 12/21/2016 Comp Metabolic Ojk395 B/ C Ratio 13.6 Ratio 12/21/2016 Comp Metabolic Llh893 CA LCIUM 8.6 mg/dL 12/21/2016 Comp Metabolic Nbv554 AL K PHOS 69 U/L 12/21/2016 Comp Metabolic Xgf353 T(SGOT) 15 U/L 12/21/2016 Comp Metabolic Yxi124 AL T(SGPT) 14 U/L 12/21/2016 Comp Metabolic Nza503 BI LI T 0.3 mg/dL 12/21/2016 Comp Metabolic Iuo388 AL BUMIN 3.7 g/dL 12/21/2016 Comp Metabolic Pzh688 TP RO 5.9 g/dL 12/21/2016 Comp Metabolic Ipr167 GL OB 2.2 g/dL 12/21/2016 Comp Metabolic Quq728 A/ G Ratio 1.7 Ratio 12/21/2016 Comp Metabolic Lrc430 Os mo 272 mOsmo 12/21/2016 Cbc With [...] 100.9 fl 12/21/2016 Cbc With Differential Ord2 Juncos% 6.9 % 12/21/2016 Cbc With Differential Ord2 [...] 2.05 K/ul 12/21/2016 Cbc With Differential Ord2 Juncos ABS# 0.4 K/ul 12/21/2016 Cbc With Differential Ord2 Eos ABS# 0.2 K/ul 12/21/2016 Cbc With Differential Ord2 Baso ABS# 0.0 K/ul 12/21/2016 Comp Metabolic Qye172 NA 138 mEq/L 09/03/2016 Comp Metabolic Crk544 K 4.5 mEq/L 09/03/2016 Comp Metabolic Eez423 CL 102 mEq/L 09/03/2016 Comp Metabolic Lkg044 CO2 30.0 mEq/L 09/03/2016 Comp Metabolic Sty638 AN ION GAP 11 09/03/2016 Comp Metabolic Sgq847 GL UCOSE 113 mg/dL 09/03/2016 Comp Metabolic Rer803 Cr eat 1.0 mg/dL 09/03/2016 Comp Metabolic Fub738 eG FR 81 ml/min/1.73m2 09/03 Comp Metabolic Jdk899 BUN 10 mg/dL 09/03/2016 Comp Metabolic Btt981 B/ C Ratio 10.5 Ratio 09/03/2016 Comp Metabolic Fgi501 CA LCIUM 9.1 mg/dL 09/03/2016 Comp Metabolic Aew397 AL K PHOS 71 U/L 09/03/2016 Comp Metabolic Ogl825 T(SGOT) 18 U/L 09/03/2016 Comp Metabolic Llb666 AL T(SGPT) 17 U/L 09/03/2016 Comp Metabolic Ipf293 BI LI T 0.6 mg/dL 09/03/2016 Comp Metabolic Dqv907 AL BUMIN 4.1 g/dL 09/03/2016 Comp Metabolic Zgr667 TP RO 6.4 g/dL 09/03/2016 Comp Metabolic Xiq118 GL OB 2.3 g/dL 09/03/2016 Comp Metabolic Kfn854 A/ G Ratio 1.8 Ratio 09/03/2016 Comp Metabolic Fev144 Os mo 276 mOsmo 09/03/2016 Vitamin D 25 Oh Wih6743 VITAMIN D, 25 HYDROXY 28.23 ng/mL 09/03/2016 [...] 34.4 pg 09/03/2016 Cbc With Differential Ord2 Juncos% 8.9 % 09/03/2016 Cbc With Differential Ord2 [...] 3.34 K/ul 09/03/2016 Cbc With Differential Ord2 Juncos ABS# 0.7 K/ul 09/03/2016 Cbc With Differential Ord2 Eos ABS# 0.4 K/ul 09/03/2016 Cbc With Differential Ord2 Baso ABS# 0.0 K/ul 09/03/2016 Lipid Ord30 CHOL 120 mg/dL 09/03/2016 Lipid Ord30 HDL 33.0 mg/dl 09/03/2016 Lipid Ord30 TRIG 161 mg/dL 09/03/2016 Lipid Ord30 LDL 55 mg/dL 09/03/2016 Lipid Ord30 C/HDL 3.6 Ratio 09/03/2016 %Hba1C Frx378 % HbA1c 14954-8 7.5 % 09/03/2016 %Hba1C Wtq464 Gluc Ave 169 mg/dL 09/03/2016 Tsh Ord6 hTSH II 1.50 uIU/mL 05/23/2016 %Hba1C Bci111 % HbA1c 80775-8 7.6 % 05/23/2016 %Hba1C Tdj148 Gluc Ave 171 mg/dL 05/23/2016 Comp Metabolic Asi775 NA 135 mEq/L 05/23/2016 Comp Metabolic Jel849 K 4.4 mEq/L 05/23/2016 Comp Metabolic Sex416 CL 99 mEq/L 05/23/2016 Comp Metabolic Rms684 CO2 28.0 mEq/L 05/23/2016 Comp Metabolic Zad390 AN ION GAP 12 05/23/2016 Comp Metabolic Brf262 GL UCOSE 257 mg/dL 05/23/2016 Comp Metabolic Yol074 Cr eat 0.8 mg/dL 05/23/2016 Comp Metabolic Brs651 eG FR 95 ml/min/1.73m2 05/23 Comp Metabolic Qje859 BUN 11 mg/dL 05/23/2016 Comp Metabolic Brc484 B/ C Ratio 13.3 Ratio 05/23/2016 Comp Metabolic Tbl247 CA LCIUM 9.0 mg/dL 05/23/2016 Comp Metabolic Vtk708 AL K PHOS 82 U/L 05/23/2016 Comp Metabolic Qed293 T(SGOT) 21 U/L 05/23/2016 Comp Metabolic Rjp375 AL T(SGPT) 20 U/L 05/23/2016 Comp Metabolic Vhg578 BI LI T 0.3 mg/dL 05/23/2016 Comp Metabolic Tbl184 AL BUMIN 4.0 g/dL 05/23/2016 Comp Metabolic Ysv616 TP RO 6.4 g/dL 05/23/2016 Comp Metabolic Mtz628 GL OB 2.4 g/dL 05/23/2016 Comp Metabolic Gje753 A/ G Ratio 1.6 Ratio 05/23/2016 Comp Metabolic Wwi450 Os mo 278 mOsmo 05/23/2016 Cbc With [...] 34.5 pg 05/23/2016 Cbc With Differential Ord2 Juncos% 6.1 % 05/23/2016 Cbc With Differential Ord2 [...] 2.38 K/ul 05/23/2016 Cbc With Differential Ord2 Juncos ABS# 0.4 K/ul 05/23/2016 Cbc With Differential Ord2 Eos ABS# 0.2 K/ul 05/23/2016 Cbc With Differential Ord2 Baso ABS# 0.0 K/ul 05/23/2016 B12 Ngl553 B12 597.00 pg/ml 05/23/2016 Metabolic Ord15 NA [...] 0.92 uIU/mL 07/29/2015 Vitamin D 25 Oh Jqb4609 VITAMIN D, 25 HYDROXY 26.93 ng/mL 07/29/2015 %Hba1C Siq779 % HbA1c 12992-4 8.8 % 07/29/2015 %Hba1C Kpp231 Gluc Ave 206 mg/dL 07/29/2015 Cbc With [...] Ord2 RDW 14.9 % 07/29/2015 Comp Metabolic Gch294 NA 138 mEq/L 07/29/2015 Comp Metabolic Rop003 K 4.4 mEq/L 07/29/2015 Comp Metabolic Nwu860 CL 102 mEq/L 07/29/2015 Comp Metabolic Bzd839 CO2 28.0 mEq/L 07/29/2015 Comp Metabolic Vmx574 AN ION GAP 12 07/29/2015 Comp Metabolic Gjz875 GL UCOSE 261 mg/dL 07/29/2015 Comp Metabolic Fef311 Cr eat 1.0 mg/dL 07/29/2015 Comp Metabolic Qla225 eG FR 77 ml/min/1.73m2 07/29 Comp Metabolic Jjl643 BUN 13 mg/dL 07/29/2015 Comp Metabolic Fcj755 B/ C Ratio 13.0 Ratio 07/29/2015 Comp Metabolic Ycf826 CA LCIUM 9.1 mg/dL 07/29/2015 Comp Metabolic Cve751 AL K PHOS 64 U/L 07/29/2015 Comp Metabolic Xnb608 T(SGOT) 20 U/L 07/29/2015 Comp Metabolic Aey206 AL T(SGPT) 22 U/L 07/29/2015 Comp Metabolic Saj332 BI LI T 0.4 mg/dL 07/29/2015 Comp Metabolic Hve469 AL BUMIN 4.0 g/dL 07/29/2015 Comp Metabolic Bgd470 TP RO 6.1 g/dL 07/29/2015 Comp Metabolic Zso195 GL OB 2.1 g/dL 07/29/2015 Comp Metabolic Mvq154 A/ G Ratio 1.9 Ratio 07/29/2015 Comp Metabolic Nvg794 Os mo 285 mOsmo 07/29/2015 Cbc With [...] Ord2 RDW 13.1 % 05/06/2015 Comp Metabolic Eaa483 NA 134 mEq/L 05/06/2015 Comp Metabolic Lwx245 K 4.4 mEq/L 05/06/2015 Comp Metabolic Sem873 CL 98 mEq/L 05/06/2015 Comp Metabolic Owh591 CO2 29.0 mEq/L 05/06/2015 Comp Metabolic Gks009 AN ION GAP 11 05/06/2015 Comp Metabolic Daq895 GL UCOSE 321 mg/dL 05/06/2015 Comp Metabolic Bso124 Cr eat 1.0 mg/dL 05/06/2015 Comp Metabolic Tkj483 eG FR 78 ml/min/1.73m2 05/06 Comp Metabolic Qal809 BUN 20 mg/dL 05/06/2015 Comp Metabolic Gju983 B/ C Ratio 20.4 Ratio 05/06/2015 Comp Metabolic Zxl111 CA LCIUM 9.5 mg/dL 05/06/2015 Comp Metabolic Umg138 AL K PHOS 62 U/L 05/06/2015 Comp Metabolic Mpq978 T(SGOT) 21 U/L 05/06/2015 Comp Metabolic Mtf903 AL T(SGPT) 37 U/L 05/06/2015 Comp Metabolic Cyu109 BI LI T 0.4 mg/dL 05/06/2015 Comp Metabolic Sig688 AL BUMIN 3.8 g/dL 05/06/2015 Comp Metabolic Wjy556 TP RO 6.1 g/dL 05/06/2015 Comp Metabolic Stm444 GL OB 2.3 g/dL 05/06/2015 Comp Metabolic Dce596 A/ G Ratio 1.7 Ratio 05/06/2015 Comp Metabolic Xrx116 Os mo 283 mOsmo 05/06/2015 Tsh Ord6 hTSH II 1.65 uIU/mL 02/18/2015 B12 Xmx736 B12 605.00 pg/ml 02/18/2015 %Hba1C Ayr526 % HbA1c 08085-8 8.3 % 02/18/2015 %Hba1C Vmu684 Gluc Ave 192 mg/dL 02/18/2015 Cbc With [...] Ord2 RDW 13.9 % 02/17/2015 Comp Metabolic Bqf537 NA 137 mEq/L 02/17/2015 Comp Metabolic Iwb697 K 4.4 mEq/L 02/17/2015 Comp Metabolic Fml402 CL 100 mEq/L 02/17/2015 Comp Metabolic Lku212 CO2 31.0 mEq/L 02/17/2015 Comp Metabolic Usk257 AN ION GAP 10 02/17/2015 Comp Metabolic Ams625 GL UCOSE 307 mg/dL 02/17/2015 Comp Metabolic Ahy234 Cr eat 1.0 mg/dL 02/17/2015 Comp Metabolic Xqs087 eG FR 74 ml/min/1.73m2 02/17 Comp Metabolic Vlh139 BUN 22 mg/dL 02/17/2015 Comp Metabolic Bne592 B/ C Ratio 21.4 Ratio 02/17/2015 Comp Metabolic Rsf614 CA LCIUM 9.5 mg/dL 02/17/2015 Comp Metabolic Nwz222 AL K PHOS 78 U/L 02/17/2015 Comp Metabolic Obr000 T(SGOT) 18 U/L 02/17/2015 Comp Metabolic Qak596 AL T(SGPT) 32 U/L 02/17/2015 Comp Metabolic Vhz024 BI LI T 0.5 mg/dL 02/17/2015 Comp Metabolic Ygz229 AL BUMIN 4.3 g/dL 02/17/2015 Comp Metabolic Ziz787 TP RO 6.7 g/dL 02/17/2015 Comp Metabolic Jah920 GL OB 2.4 g/dL 02/17/2015 Comp Metabolic Euy001 A/ G Ratio 1.8 Ratio 02/17/2015 Comp Metabolic Obe168 Os mo 289 mOsmo 02/17/2015 Review of [...] No fever 04/25/2015 Eyes No eye pain 09/14/2 015 Eyes No vision change Ears/Nose/Throat/Neck No [...] distress 01/13/2018 None Full Exam - General 1995 Constitutional general appearance Overall: well nourished 01/13/2018 [...] thin 10/02/2017 None Full Exam - General 1995 Eyes conjunctiva/eyelids Overall: conjunctiva clear 10/02/2017 None [...] Procedure Codes Date THER/PROPH/DIAG INJ SC/IM CPT-4: 37088 08/08/2018 THER/PROPH/DIAG INJ SC/IM CPT-4: 57984 07/28/2018 THER/PROPH/DIAG INJ SC/IM CPT-4: 27544 07/16/2018 THER/PROPH/DIAG INJ SC/IM CPT-4: 80824 07/02/2018 PPPS, SUBSEQ VISIT CPT- 4: G0439 06/30/2018 THER/PROPH/DIAG INJ SC/IM CPT-4: 18095 06/24/2018 THER/PROPH/DIAG INJ SC/IM CPT-4: 14290 06/13/2018 ADMIN INFLUENZA VIRU S VAC CPT-4: G0008 06/06/2018 FLU VACC PRSV FREE I NC ANTIG CPT-4: 97080 06/06/2018 THER/PROPH/DIAG INJ SC/IM CPT-4: 14752 06/05/2018 THER/PROPH/DIAG INJ SC/IM CPT-4: 28678 05/30/2018 THER/PROPH/DIAG INJ SC/IM CPT-4: 73271 05/22/2018 THER/PROPH/DIAG INJ SC/IM CPT-4: 75573 05/12/2018 THER/PROPH/DIAG INJ SC/IM CPT-4: 66099 05/02/2018 THER/PROPH/DIAG INJ SC/IM CPT-4: 09245 04/24/2018 THER/PROPH/DIAG INJ SC/IM CPT-4: 20546 04/17/2018 KETOROLAC TROMETHAMI NE INJ CPT-4: J1885 03/07/2018 URINALYSIS NONAUTO W /O SCOPE CPT-4: 65414 03/07/2018 THER/PROPH/DIAG INJ SC/IM CPT-4: 62656 02/20/2018 TRIAMCINOLONE ACET I [place] NOS CPT-4: J3301 01/30/2018 THER/PROPH/DIAG INJ SC/IM CPT-4: 78524 01/17/2018 TOBACCO-USE ERP BUSINESS ANALYST 3-[address]: 577522734 CPT-4: G0436 04/25/2017 ADMIN INFLUENZA VIRU S VAC CPT-4: G0008 04/25/2017 ADMIN PNEUMOCOCCAL V ACCINE SNOMED CT: 52916965 CPT-4: G0009 04/25/2017 PNEUMOCOCCAL VACC [address]: 22582104 CPT-4: 97379 04/25/2017 FLU VACC PRSV FREE I NC ANTIG CPT-4: 84261 04/25/2017 ADMIN INFLUENZA VIRU S VAC CPT-4: G0008 05/22/2016 FLU VACC 4 TELLY 3 YRS PLUS IM Formatting Model/CDA Sections, Assigned to/Angela Clemons SNOMED CT: 99171056 CPT-4: 56943Uzvwysr 05/22/2016 TOBACCO-USE ERP BUSINESS ANALYST 3-[address]: 000153135 CPT-4: G0436 11/25/2015 URINALYSIS NONAUTO W /O SCOPE CPT-4: 68118 05/09/2015 TRIAMCINOLONE ACET I [place] NOS CPT-4: J3301 04/12/2015 DESTRUCT PREMALG LESION CPT-4: 39003 03/07/2015 DESTRUCT PREMALG LES 2-14 CPT-4: 48375 03/07/2015 REMOVE IMPACTED EAR WAX UNI CPT-4: 99069 12/31/2014 THER/PROPH/DIAG INJ SC/IM CPT-4: 32039 12/23/2014 TRIAMCINOLONE ACET I [place] NOS CPT-4: J3301 12/23/2014 Vital Signs Date Vital 06/30/2018 BMI: 21.8 Code: 29352-9 Height: 5'11" Weight: 156 lbs 06/06/2018 Blood Pressure 1: 128/76 Code: 8480-6 BMI: 22.0 Code: 58334-3 Heart Rate 1: 81 bpm Height: 5'11" SpO2: 92% Weight: 158 lbs 04/04/2018 Blood Pressure 1: 124/70 Code: 8480-6 BMI: 20.8 Code: 80367-2 Heart Rate 1: 65 bpm Height: 5'11" SpO2: 95% Weight: 149 lbs 03/07/2018 Blood Pressure 1: 148/70 Code: 8480-6 BMI: 21.2 Code: 23883-1 Heart Rate 1: 66 bpm Height: 5'11" SpO2: 94% Weight: 152 lbs 02/20/2018 Blood Pressure 1: 134/58 Code: 8480-6 BMI: 20.5 Code: 43854-2 Heart Rate 1: 61 bpm Height: 5'11" SpO2: 92% Weight: 147 lbs 01/30/2018 Blood Pressure 1: 158/68 Code: 8480-6 BMI: 21.5 Code: 45912-2 Heart Rate 1: 71 bpm Height: 5'11" SpO2: 92% Weight: 154 lbs 01/14/2018 Blood Pressure 1: 156/70 Code: 8480-6 Height: Weight: 01/13/2018 Blood Pressure 1: 148/62 Code: 8480-6 BMI: 20.9 Code: 02844-2 Heart Rate 1: 54 bpm Height: 5'11" SpO2: 97% Weight: 150 lbs 11/19/2017 Blood Pressure 1: 150/60 Code: 8480-6 BMI: 21.8 Code: 68384-4 Heart Rate 1: 63 bpm Height: 5'11" SpO2: 98% Weight: 156 lbs 10/02/2017 Blood Pressure 1: 168/60 Code: 8480-6 BMI: 21.9 Code: 00724-5 Heart Rate 1: 52 bpm Height: 5'11" SpO2: 97% Weight: 157 lbs 07/23/2017 Blood Pressure 1: 170/70 Code: 8480-6 BMI: 21.8 Code: 45751-5 Heart Rate 1: 65 bpm Height: 5'11" SpO2: 98% Weight: 156 lbs 04/25/2017 Blood Pressure 1: 138/60 Code: 8480-6 BMI: 21.6 Code: 10812-1 Heart Rate 1: 55 bpm Height: 5'11" SpO2: 93% Weight: 155 lbs 02/19/2017 Blood Pressure 1: 138/64 Code: 8480-6 BMI: 21.3 Code: 39516-8 Heart Rate 1: 52 bpm Height: 5'11" SpO2: 96% Weight: 152 lbs 8 oz 01/21/2017 Blood Pressure 1: 160/68 Code: 8480-6 BMI: 21.3 Code: 47906-8 Heart Rate 1: 62 bpm Height: 5'11" SpO2: 96% Weight: 153 lbs 12/20/2016 Blood Pressure 1: 124/66 Code: 8480-6 BMI: 21.5 Code: 68245-8 Height: 5'11" Weight: 154 lbs 08/23/2016 Blood Pressure 1: 142/52 Code: 8480-6 BMI: 21.2 Code: 92814-1 Heart Rate 1: 54 bpm Height: 5'11" SpO2: 96% Weight: 152 lbs 05/22/2016 Blood Pressure 1: 130/76 Code: 8480-6 BMI: 21.5 Code: 86360-3 Heart Rate 1: 78 bpm Height: 5'11" SpO2: 92% Weight: 154 lbs 02/24/2016 Blood Pressure 1: 128/80 Code: 8480-6 BMI: 21.2 Code: 22895-3 Heart Rate 1: 74 bpm Height: 5'11" SpO2: 96% Weight: 152 lbs 01/27/2016 Blood Pressure 1: 144/60 Code: 8480-6 BMI: 21.2 Code: 39343-8 Heart Rate 1: 74 bpm Height: 5'11" SpO2: 97% Weight: 152 lbs 11/25/2015 Blood Pressure 1: 110/52 Code: 8480-6 BMI: 21.9 Code: 10175-7 Heart Rate 1: 65 bpm Height: 5'11" SpO2: 92% Weight: 157 lbs 07/28/2015 Blood Pressure 1: 138/62 Code: 8480-6 BMI: 21.8 Code: 59759-9 Heart Rate 1: 63 bpm Height: 5'11" SpO2: 91% Weight: 156 lbs 05/26/2015 Blood Pressure 1: 120/58 Code: 8480-6 BMI: 21.5 Code: 58476-5 Heart Rate 1: 99 bpm Height: 5'11" SpO2: 96% Weight: 154 lbs 05/06/2015 Blood Pressure 1: 120/58 Code: 8480-6 BMI: 21.2 Code: 13291-7 Heart Rate 1: 66 bpm Height: 5'11" SpO2: 96% Weight: 152 lbs 04/25/2015 Blood Pressure 1: 136/62 Code: 8480-6 BMI: 21.2 Code: 78661-3 Heart Rate 1: 63 bpm Height: 5'11" SpO2: 97% Weight: 152 lbs 04/12/2015 Blood Pressure 1: 160/58 Code: 8480-6 BMI: 21.6 Code: 08713-1 Heart Rate 1: 62 bpm Height: 5'11" Weight: 155 lbs 03/24/2015 Blood Pressure 1: 138/68 Code: 8480-6 BMI: 22.0 Code: 12058-6 Heart Rate 1: 65 bpm Height: 5'11" SpO2: 96% Weight: 158 lbs 03/07/2015 Blood Pressure 1: 116/52 Code: 8480-6 BMI: 22.2 Code: 85994-1 Heart Rate 1: 64 bpm Height: 5'11" SpO2: 97% Weight: 159 lbs 02/17/2015 Blood Pressure 1: 148/58 Code: 8480-6 BMI: 21.3 Code: 70182-4 Heart Rate 1: 63 bpm Height: 5'11" SpO2: 97% Weight: 153 lbs 12/31/2014 Blood Pressure 1: 100/60 Code: 8480-6 BMI: 21.8 Code: 39955-5 Heart Rate 1: 68 bpm Height: 5'11" Weight: 156 lbs 12/23/2014 Blood Pressure 1: 148/64 Code: 8480-6 BMI: 21.9 Code: 02578-8 Heart Rate 1: 64 bpm Height: 5'11" [...] Encounters Encounter Performer Loca tion Codes Date ([id number]) [id number] EST. P ATIENT, LEVEL IV Diagnosis: Cellulitis of face[ICD10: L03.211] Diagnosis: Type 2 diabetes mellitus without complications[ICD10: E11.9] Diagnosis: Essential (primary) hypertension[ICD10: I10] Diagnosis: Encounter for immunization[ICD10: Z23] Karmen Ash MD, [facility] CPT-4: 27168 06/06/2018 ([id number]) 54921 EST. 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 P ATIENT, LEVEL III Diagnosis: Low back pain[ICD10: M54.5] Diagnosis: Dysuria[ICD10: R30.0] Karmen Ash MD, [facility] CPT-4: 96131 03/07/2018 ([id number]) 97248 EST. 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 P ATIENT, LEVEL III Diagnosis: Chronic obstructive pulmonary disease with (acute) exacerbation[ICD10: J44.1] Karmen Ash MD, [facility] CPT-4: 82592 01/30/2018 67553 EST. PATIENT, LEVEL II Diagnosis: Insect bite (nonvenomous), left lower leg, initial encounter[ICD10: S80.862A] Karmen Ash MD, [facility] CPT-4: 94889 01/14/2018 ([id number]) 17475 EST. P ATIENT, LEVEL IV Diagnosis: Type 2 diabetes mellitus with hyperglycemia[ICD10: E11.65] Diagnosis: Chronic obstructive pulmonary disease, unspecified[ICD10: J44.9] Diagnosis: Other fatigue[ICD10: R53.83] Karmen Ash MD, [facility] CPT- 4: 74643 01/13/2018 ([id number]) 66602 EST. P ATIENT, LEVEL IV Diagnosis: Type 2 diabetes mellitus with hyperglycemia[ICD10: E11.65] Diagnosis: Vitamin D deficiency, unspecified[ICD10: E55.9] Diagnosis: Essential (primary) hypertension[ICD10: I10] Diagnosis: Abdominal distension (gaseous)[ICD10: R14.0] Diagnosis: Drug induced constipation[ICD10: K59.03] Karmen Ash MD, [facility] CPT-4: 09044 11/19/2017 [id number] EST. PATIENT, LEVEL IV Diagnosis: Low back pain[ICD10: M54.5] Diagnosis: Chronic obstructive pulmonary disease, unspecified[ICD10: J44.9] Brunilda Ash MD, [facility] CPT-4: 72572 10/02/2017 ([id number]) 39110 EST. P ATIENT, LEVEL IV Diagnosis: Essential (primary) hypertension[ICD10: I10] Diagnosis: Type 2 diabetes mellitus with hyperglycemia[ICD10: E11.65] Diagnosis: Vitamin D deficiency, unspecified[ICD10: E55.9] Diagnosis: Mixed hyperlipidemia[ICD10: E78.2] Karmen Ash MD, [facility] CPT-4: 40800 07/23/2017 ([id number]) 91514 EST. P ATIENT, LEVEL IV Diagnosis: Essential (primary) hypertension[ICD10: I10] Diagnosis: Type 2 diabetes mellitus with hyperglycemia[ICD10: E11.65] Diagnosis: Chronic obstructive pulmonary disease, unspecified[ICD10: J44.9] Diagnosis: Nicotine dependence, unspecified, uncomplicated[ICD10: F17.200] Diagnosis: Encounter for immunization[ICD10: Z23] Karmen Ash MD, [facility] CPT-4: 85240 04/25/2017 ([id number]) 58211 EST. P ATIENT, LEVEL IV Diagnosis: Type 2 diabetes mellitus with hyperglycemia[ICD10: E11.65] Diagnosis: Essential (primary) hypertension[ICD10: I10] Diagnosis: Anemia, unspecified[ICD10: D64.9] Karmen Ash MD, [facility] CPT- 4: 04568 02/19/2017 ([id number]) 44312 EST. P ATIENT, LEVEL IV Diagnosis: Slow transit constipation[ICD10: K59.01] Diagnosis: Gastro-esophageal reflux disease without esophagitis[ICD10: K21.9] Diagnosis: Essential (primary) hypertension[ICD10: I10] Karmen Ash MD, [facility] CPT-4: 71143 01/21/2017 ([id number]) 67063 EST. P ATIENT, LEVEL IV Diagnosis: Type 2 diabetes mellitus with hyperglycemia[ICD10: E11.65] Diagnosis: Vitamin D deficiency, unspecified[ICD10: E55.9] Diagnosis: Essential (primary) hypertension[ICD10: I10] Diagnosis: Chronic obstructive pulmonary disease, unspecified[ICD10: J44.9] Karmen Ash MD, [facility] CPT-4: 90789 12/20/2016 ([id number]) 56667 EST. P ATIENT, LEVEL IV Diagnosis: Type 2 diabetes mellitus with hyperglycemia[ICD10: E11.65] Diagnosis: Essential (primary) hypertension[ICD10: I10] Diagnosis: Mixed hyperlipidemia[ICD10: E78.2] Diagnosis: Vitamin D deficiency, unspecified[ICD10: E55.9] Karmen Ash MD, [facility] CPT-4: 22211 08/23/2016 ([id number]) 26873 EST. P ATIENT, LEVEL IV Diagnosis: Type 2 diabetes mellitus with hyperglycemia[ICD10: E11.65] Diagnosis: Essential (primary) hypertension[ICD10: I10] Diagnosis: Chronic obstructive pulmonary disease, unspecified[ICD10: J44.9] Karmen Ash MD, [facility] CPT-4: 82926 05/22/2016 ([id number]) 64804 EST. P ATIENT, LEVEL III Diagnosis: Dysuria[ICD10: R30.0] Diagnosis: Essential (primary) hypertension[ICD10: I10] Karmen Ash MD, [facility] CPT-4: 54802 02/24/2016 ([id number]) 70994 EST. P ATIENT, LEVEL IV Diagnosis: Gastro-esophageal reflux disease without esophagitis[ICD10: K21.9] Diagnosis: Slow transit constipation[ICD10: K59.01] Diagnosis: Type 2 diabetes mellitus with hyperglycemia[ICD10: E11.65] Karmen Ash MD, [facility] CPT-4: 59220 01/27/2016 ([id number]) 31757 EST. P ATIENT, LEVEL IV Diagnosis: Essential (primary) hypertension[ICD10: I10] Diagnosis: Type 2 diabetes mellitus with hyperglycemia[ICD10: E11.65] Diagnosis: Vitamin D deficiency, unspecified[ICD10: E55.9] Diagnosis: Chronic obstructive pulmonary disease, unspecified[ICD10: J44.9] Diagnosis: Mixed hyperlipidemia[ICD10: E78.2] Diagnosis: Tobacco use[ICD10: Z72.0] Karmen Ash MD, [facility] CPT- 4: 96921 11/25/2015 ([id number]) 40617 EST. P ATIENT, LEVEL IV Diagnosis: Type 2 diabetes mellitus with hyperglycemia[ICD10: E11.65] Diagnosis: Essential (primary) hypertension[ICD10: I10] Diagnosis: Vitamin D deficiency, unspecified[ICD10: E55.9] Karmen Ash MD, [facility] CPT-4: 42827 07/28/2015 ([id number]) 49348 EST. P ATIENT, LEVEL III Diagnosis: Type 2 diabetes mellitus with hyperglycemia[ICD10: E11.65] Diagnosis: Essential (primary) hypertension[ICD10: I10] Violeta Ash MD, [facility] CPT-4: 66902 05/26/2015 ([id number]) 51501 EST. P ATIENT, LEVEL III Diagnosis: DIABETES TYPE II[ICD9: 250.00] Diagnosis: COPD (chronic obstructive pulmonary disease)[ICD9: 496] Diagnosis: ESSENTIAL HYPERTENSION[ICD9: 401.9] Diagnosis: Cough[ICD9: 786.2] Violeta Ash MD, [facility] CPT-4: 85605 05/06/2015 ([id number]) 03369 EST. P ATIENT, LEVEL III Diagnosis: COPD (chronic obstructive pulmonary disease)[ICD9: 496] Diagnosis: DIABETES TYPE II[ICD9: 250.00] Diagnosis: Muscle ache[ICD9: 729.1] Karmen Ash MD, [facility] CPT- 4: 01902 04/25/2015 ([id number]) 52027 EST. P ATIENT, LEVEL III Diagnosis: ACTINIC KERATOSIS[ICD9: 702.0] Diagnosis: COPD (chronic obstructive pulmonary disease)[ICD9: 496] Diagnosis: DIABETES TYPE II[ICD9: 250.00] Diagnosis: ACUTE URI[ICD9: 465.9] Violeta Ash MD, [facility] CPT-4: 44260 04/12/2015 ([id number]) 93747 EST. P ATIENT, LEVEL III Diagnosis: DIABETES TYPE II[ICD9: 250.00] Violeta Ash MD, [facility] CPT-4: 08898 03/24/2015 ([id number]) 97518 EST. P ATIENT, LEVEL IV Diagnosis: DIABETES TYPE II[ICD9: 250.00] Diagnosis: Hypoglycemia[ICD9: 251.2] Diagnosis: Skin texture changes[ICD9: 782.8] Violeta Ash MD, [facility] CPT-4: 17989 03/07/2015 ([id number]) 70461 EST. P ATIENT, LEVEL IV Diagnosis: COPD (chronic obstructive pulmonary disease)[ICD9: 496] Diagnosis: Fatigue[ICD9: 780.79] Diagnosis: Insulin dependent diabetes mellitus[ICD9: 250.00] Diagnosis: Unsteady gait[ICD9: 781.2] Maame Ash MD, [facility] CPT-4: 19836 02/17/2015 ([id number]) 94223 EST. P ATIENT, LEVEL IV Diagnosis: BPPV (benign paroxysmal positional vertigo)[ICD9: 386.11] Diagnosis: Impacted cerumen[ICD9: 380.4] Diagnosis: ESSENTIAL HYPERTENSION[ICD9: 401.9] Diagnosis: Insulin dependent diabetes mellitus[ICD9: 250.00] [facility] CPT-4: 20611 12/23/2014 ([id number]) OFFICE VISI T, NEW - LEVEL 4 Diagnosis: Insulin dependent diabetes mellitus[ICD9: 250.00] Diagnosis: BPPV (benign paroxysmal positional vertigo)[ICD9: 386.11] Diagnosis: COPD (chronic obstructive pulmonary disease)[ICD9: 496] Diagnosis: Tobacco abuse[ICD9: 305.1] Diagnosis: Osteoarthritis[ICD9: 715.90] [facility] CPT- 4: 71538 12/09/2014 Plan of Care Planned Activity Notes C odes Status Date Appointment: Injection 08/08/2018 Patient Education: Patient Medication [...] care surrogate. 06/30/2018 Appointment: Karmen Espinal WPtel: [phone] [facility] - Annual Wellness Visit 06/30/2018 Patient Education: [...] pain. 06/06/2018 Appointment: [facility]arm[facility] Espinal WPtel: [phone] [phone] (15 min) Moderate 06/06/2018 Patient Education: Patient [...] months 04/04/2018 Appointment: Karmen Espinal WPtel: [phone] [facility] [place] [address] (15 min) Moderate 04/04/2018 Patient Education: Patient Medication Summary Completed 04/04/2018 Care Plan: Cbc With Differential Pending 04/04/2018 Care Plan: Testosterone repeat in 2 months Pending 04/04/2018 Appointment: Karmen Espinal WPtel: [phone] [phone] [place] (15 min) Moderate 03/25/2018 Visit Plan: Low back pain -history of kidney stone-UA negative today -increase fluids and call if pain does not resolve or if any worse. 03/07/2018 Appointment: Karmen Espinal WPtel: [facility]2 [facility] [place] [address] (15 min) Moderate 03/07/2018 Patient Education: Patient [...] 1 month 02/20/2018 Appointment: Karmen Espinal WPtel: [address] [place], [place] [phone] (15 min) Moderate 02/20/2018 Patient Education: Patient Medication Summary Completed 02/20/2018 Visit Plan: COPD EXACERBATION - SIFTER AND MILLER D is a chronic problem for this [...] WPtel: [facility] [phone] (15 min) Moderate 01/30/2018 Patient Education: Patient Medication Summary Completed 01/30/2018 Appointment: Karmen Espinal WPtel: [address] [place] [address] (15 min) Moderate 01/28/2018 Appointment: Injection 01/17/2018 Patient Education: Patient Medication Summary Completed 01/17/2018 Visit Plan: Cellulitis - start oral antibiotics as directed, return to clinic as previously directed, call for acute change in symptoms, worsening redness, warmth, discharge. 01/14/2018 Appointment: Karmen Espinal WPtel: [facility]5 [facility] [place] [address] (10 min) Simple 01/14/2018 Patient Education: Patient [...] less controlled. 01/13/2018 Appointment: Karmen Espinal WPtel: [address] [place], [place] [phone] [place] [address] (15 min) Moderate 01/13/2018 Patient Education: Patient Medication Summary Completed 01/13/2018 [phone] [place] [address] Patient's informed. Referral info ned monroy. Completed [...] change in blood pressure readings at home. Cvmwuqpp-ohoinl-tmuhg to see Dr Villatoro Constipation-start linzess daily 11/19/2017 Appointment: Karm[facility] Espinal WPtel: [phone] [phone] [place] (30 min) Complex 11/19/2017 Patient Education: Patient Medication Summary Completed 11/19/2017 Care Plan: Referral Order bloating, nausea SNOMED-CT : 746561643 Pending 11/19/2017 Visit Plan: Low back pain- [...] acute changes. 10/02/2017 Appointment: Brunilda Maravilla WPtel: [phone] [facility] [place] [place] (15 min) Moderate 10/02/2017 Patient Education: [...] less controlled. 07/23/2017 Appointment: Karmen Espinal WPtel: [address] [place], [place] [phone] (30 min) [facility] 07/23/2017 Patient Education: Patient Medication Summary [...] history 04/25/2017 Appointment: Karmen Espinal WPtel: [phone] [phone] (30 min) Complex 04/25/2017 Patient Education: [...] readings are starting to become less controlled. Glzzxb-lzeuxiy-bduld labs 02/19/2017 Appointment: Karmen Espinal WPtel: [phone] [...] month 01/21/2017 Appointment: Karmen Espinal WPtel: [facility]5 [phone] (30 min) Complex 01/21/2017 Patient Education: Patient Medication Summary Completed 01/21/2017 Patient Education: Smoking and Tobacco Addiction Completed 01/21/2017 Patient Education: Hypertension Completed 01/21/2017 Care Plan: Referral Order SNOMED-CT : 650592633 Pending 01/21/2017 Visit Plan: Diabetes Mellitus - [...] WPtel: [phone] (30 min) Complex 12/20/2016 Patient Education: Patient Medication Summary Completed 12/20/2016 Patient Education: Smoking and Tobacco Addiction Completed 12/20/2016 Patient Education: Hypertension Completed 12/20/2016 Appointment: Karmen Espinal WPtel: [facility] [phone] (30 min) Complex 09/06/2016 Visit Plan: Diabetes [...] [phone] (30 min) [facility] 08/23/2016 Patient Education: Patient Medication Summary [...] changes. 05/22/2016 Appointment: Karmen Espinal WPtel: [phone] [phone] (30 min) Complex 05/22/2016 Patient Education: Patient Medication Summary Completed 05/22/2016 Patient Education: Smoking and Tobacco Addiction Completed 05/22/2016 Care Plan: Cbc With Differential Ordered 05/22/2016 Care Plan: %Hba1C KIKI C : 63285-6 Ordered 05/22/2016 Care Plan: Tsh Ordered 05/22/2016 [...] with update 02/24/2016 Appointment: Karmen Espinal WPtel: [facility] [phone] (30 min) [...] regimen. 01/27/2016 Appointment: Karmen Espinal WPtel: [phone] (30 min) [...] Completed 05/06/2015 Visit Plan: COPD EXACERBATION - SIFTER AND MILLER D is a chronic problem for this [...] POTENTIAL SIDE EFFECTS AND WORSENING OF SYMPTOMS. Ahjkeefx-dhkoijhn-RKVC SIMVASTATIN X 2 WEEKS AND CALL WITH [...] Completed 03/24/2015 Care Plan: [facility] 36677[facility]2 Ordered 03/24/2015 Visit Plan: Diabetes Mellitus - [...] WPtel: [phone] (15 min) Moderate 03/07/2015 Patient Education: [...] Care Plan: COMPLETE CBC AUTOMATED LOINC : 60192-9 Ordered 12/23/2014 Visit Plan: BPPV - Benign [...] Espinal WPtel: [facility] [phone] [place] ([place]) New Patient 12/09/2014 Patient Education: Patient Medication Summary Completed 12/09/2014 Patient Education: .Amazing charts Parox ysmal positional vertigo Completed 12/09/2014 Patient Education: Smoking and Tobacco Addiction Completed 12/09/2014 [phone] [facility] [place] Referral Appointment Requested [...] readings are starting to become less controlled. Gomamb-aahvnfn-hxefj labs . Cellulitis - start oral antibiotics [...] change in blood pressure readings at home. Oixesexr-goejqd-dzfxx to see Dr Villatoro Constipation-start linzess daily [...] POTENTIAL SIDE EFFECTS AND WORSENING OF SYMPTOMS. Sicpxujs-knlzhwqh-EBWG SIMVASTATIN X 2 WEEKS AND CALL WITH [...]
[2020-03-29 09:25] VITALS: BP 184/63
--- OUTSIDE RECORDS SUMMARY | 2020-03-29 09:26 | XMS REPORT | CCD ---
Author Author Dick Espinal Organization Violeta Ash MD, [facility] Address [address] [place] [address] Phone Care Team Providers Care Property Maintenance Supervisor Name Role Phone PP Unavailable CCM Unavailable Summary Purpose Interface Exchange Insurance Providers Payer name Policy type / Coverage type Covered democrat ID Effective Begin Date Effective End Date WPS Medicare Part B Medicare Part B [id number] Unknown Unknown [employer] Medicar e Part B [id number] Unknown Unkn own Family history Father Diagnosis Age At Onset Cancer Unknown Mother Diagnosis Age At Onset Cancer Unknown Social History Social History Element Codes Description Effective Dates Marital status Unknown M arried 12/09/2014 Employment Unknown Retir ed 12/09/[address]: 16303331 Currently smokes tobacco 12/09/2014 Number of years using tobacco Unknown > 50 12/09/2014 Number of cigarettes/day Unknown 30 (Pack and a half) 12/09/[address]: 959788869 Never drinks alcohol 12/09/2014 Allergies, Adverse Reactions, [...] ICD-10: R53.83 01/13/2018 Active Type 2 diabetes kaid itus with hyperglycemia ICD-9: 250.00 ICD-10: E11.65 [...] cypiona te 200 mg/mL intramuscular oil RxNorm: 6379788 Milliliter(s) IM 08/08/2018 08/08/2018 In active testosterone cypiona te 200 mg/mL intramuscular oil RxNorm: 7328677 1/2 Milliliter(s) IM 07/28/2018 07/28/2018 Inactive hydrocodone 5 mg-linh taminophen 325 mg tablet RxNorm: 455317 1 Tablet(s) PO Q6-8H as needed 07/21/2018 08/14/2018 Active testosterone cypiona te 200 mg/mL intramuscular oil RxNorm: 031421 Milliliter(s) IM 07/16/2018 07/16/2018 In active testosterone cypiona te 200 mg/mL intramuscular oil RxNorm: 675862 Milliliter(s) IM 07/02/2018 07/02/2018 In active Xanax 0.5 mg tablet RxNorm: 357833 1 Tablet(s) PO TID 06/27/2018 08/25/2018 Active testosterone cypiona te 200 mg/mL intramuscular oil RxNorm: 966627 Milliliter(s) IM 06/24/2018 06/24/2018 In active hydrocodone 5 mg-linh taminophen 325 mg tablet RxNorm: 514090 1 Tablet(s) PO Q6-8H as needed 06/23/2018 07/17/2018 Inactive testosterone cypiona te 200 mg/mL intramuscular oil RxNorm: 558436 Milliliter(s) IM 06/13/2018 06/13/2018 In active testosterone cypiona te 200 mg/mL intramuscular oil RxNorm: 179645 Milliliter(s) IM 06/05/2018 06/05/2018 In active testosterone cypiona te 200 mg/mL intramuscular oil RxNorm: 333049 1/2 Milliliter(s) IM weekly 05/30/2018 09/26/2018 Active testosterone cypiona te 200 mg/mL intramuscular oil RxNorm: 503447 Milliliter(s) IM 05/30/2018 05/30/2018 In active testosterone cypiona te 200 mg/mL intramuscular oil RxNorm: 323895 Milliliter(s) IM 05/22/2018 05/22/2018 In active hydrocodone 5 mg-linh taminophen 325 mg tablet RxNorm: 483938 1 Tablet(s) PO Q6-8H as needed 05/20/2018 06/13/2018 Inactive testosterone cypiona te 200 mg/mL intramuscular oil RxNorm: 034189 1/2 Milliliter(s) IM 05/12/2018 05/12/2018 Inactive testosterone cypiona te 200 mg/mL intramuscular oil RxNorm: 805194 Milliliter(s) IM 05/02/2018 05/02/2018 In active testosterone cypiona te 200 mg/mL intramuscular oil RxNorm: 248479 1/2 Milliliter(s) IM weekly 04/24/2018 05/29/2018 Inactive testosterone cypiona te 200 mg/mL intramuscular oil RxNorm: 363694 0.5 Milliliter(s) IM 04/24/2018 04/24/2018 Inactive hydrocodone 5 mg-linh taminophen 325 mg tablet RxNorm: 872424 1 Tablet(s) PO Q6-8H as needed 04/22/2018 05/16/2018 Inactive testosterone cypiona te 200 mg/mL intramuscular oil RxNorm: 374753 1/2 Milliliter(s) IM 04/17/2018 04/17/2018 Inactive testosterone cypiona te 200 mg/mL intramuscular oil RxNorm: 445529 1/2 Milliliter(s) IM weekly 04/16/2018 04/23/2018 Inactive Jardiance 10 mg tablet RxNorm: 6128557 1 Tablet(s) PO daily 04/04/2018 12/29/2018 Active Protonix 40 mg table t,delayed release RxNorm: 209712 1 Tablet(s) PO daily TAKE 1 TABLET BY MOUTH DAILY 04/04/2018 03/29/2019 Active - Ref: [id number] testosterone cypiona te 200 mg/mL intramuscular oil RxNorm: 465231 1 Milliliter(s) IM monthly 04/04/2018 04/15/2018 Inactive hydrocodone 5 mg-linh taminophen 325 mg tablet RxNorm: 910369 1 Tablet(s) PO Q6-8H as needed 03/19/2018 04/12/2018 Inactive Flomax 0.4 mg capsule RxNorm: 601857 1 Capsule(s) PO daily 03/10/2018 03/04/2019 Active Urecholine 25 mg tablet RxNorm: 505269 1 Tablet(s) PO BID 03/10/2018 07/07/2018 Inactive ketorolac 60 mg/2 mL intramuscular solution RxNorm: 4532341 Milliliter(s) IM 03/07/2018 03/07/2018 In active metformin 500 mg tablet RxNorm: 156800 Tablet(s) TAKE 1 TABLET BY MOUTH DAILY 02/20/2018 02/14/2019 Ac tive 1 q am and 1/2 tab q pm hydrocodone 5 mg-linh taminophen 325 mg tablet RxNorm: 865496 1 Tablet(s) PO Q6-8H as needed 02/20/2018 03/16/2018 Inactive Kenalog 40 mg/mL bartolome pension for injection RxNorm: 0746372 1.5 Milliliter(s) In j 01/30/2018 01/30/2018 In active hydrocodone 5 mg-linh taminophen 325 mg tablet RxNorm: 581735 1 Tablet(s) PO Q6-8H as needed 01/23/2018 02/16/2018 Inactive Urecholine 25 mg tablet RxNorm: 499668 1 Tablet(s) PO BID 01/22/2018 03/09/2018 Inactive Flomax 0.4 mg capsule RxNorm: 425344 1 Capsule(s) PO daily 01/22/2018 03/09/2018 Inactive Flomax 0.4 mg capsule RxNorm: 028708 1 Capsule(s) PO daily 01/22/2018 01/21/2018 Inactive Urecholine 25 mg tablet RxNorm: 867623 1 Tablet(s) PO BID 01/22/2018 01/21/2018 Inactive testosterone cypiona te 200 mg/mL intramuscular oil RxNorm: 335116 Milliliter(s) IM 01/17/2018 01/17/2018 In active testosterone cypiona te 200 mg/mL intramuscular oil RxNorm: 543837 1 Milliliter(s) IM monthly 01/17/2018 04/03/2018 Inactive lisinopril 10 mg tablet RxNorm: 981954 TAKE 1 TABLET BY MOUTH TWO TIMES DAILY 01/14/2018 01/08/2019 Ac tive - First Attempt Ref: [id number] doxycycline hyclate 100 mg tablet RxNorm: 970360 1 Tablet(s) PO BID 01/14/2018 01/23/2018 Inactive Xanax 0.5 mg tablet RxNorm: 491979 1 Tablet(s) PO TID 01/08/2018 04/06/2018 Inactive nystatin 100,000 uni t/mL oral suspension RxNorm: 817610 4 Milliliter(s) PO QI D Swish and swallow 01/08/2018 01/07/2018 Inactive nystatin 100,000 uni t/mL oral suspension RxNorm: 142963 4 Milliliter(s) PO QI D Swish and swallow 01/08/2018 01/12/2018 Inactive simvastatin 40 mg ta blet RxNorm: 313896 TAKE 1 TABLET BY MOUT H DAILY AT BEDTIME 12/30/2017 12/24/2018 Ac tive - First Attempt Ref: [id number] metformin 500 mg tablet RxNorm: 136187 TAKE 1 TABLET BY MOUTH DAILY 12/30/2017 02/19/2018 Inactive - First Attempt Ref: [id number] hydrocodone 5 mg-linh taminophen 325 mg tablet RxNorm: 432625 1 Tablet(s) PO Q6-8H as needed 12/25/2017 01/18/2018 Inactive Protonix 40 mg table t,delayed release RxNorm: 153391 Tablet(s) TAKE 1 TABL ET BY MOUTH DAILY 11/20/2017 04/03/2018 Inactive - Ref: [id number] Linzess 72 mcg capsule RxNorm: 2773623 1 Capsule(s) PO daily 11/19/2017 No Stop Date Active hydrocodone 5 mg-linh taminophen 325 mg tablet RxNorm: 895399 1 Tablet(s) PO Q6-8H as needed 11/19/2017 12/13/2017 Inactive hydrocodone 5 mg-linh taminophen 325 mg tablet RxNorm: 014067 1 Tablet(s) PO Q6-8H as needed 10/28/2017 11/18/2017 Inactive Xanax 0.5 mg tablet RxNorm: 826763 1 Tablet(s) PO TID 10/25/2017 12/22/2017 Inactive Xanax 0.5 mg tablet RxNorm: 845157 TAKE ONE TABLET BY MOUTH THREE TIMES A D AY 10/24/2017 12/22/2017 In active hydrocodone 5 mg-linh taminophen 325 mg tablet RxNorm: 432712 1 Tablet(s) PO Q6-8H as needed 09/30/2017 10/24/2017 Inactive Protonix 40 mg table t,delayed release RxNorm: 565629 TAKE 1 TABLET BY MOUT H DAILY 09/16/2017 11/19/2017 In active - Ref: [id number] Yovana Perkins 300 unit/mL (1.5 mL) subcutaneous insulin pen RxNorm: 1609997 35 Unit(s) SQ QHS 08/30/2017 No Stop Date Active dosage increase hydrocodone 5 mg-linh taminophen 325 mg tablet RxNorm: 029561 1 Tablet(s) PO Q6-8H as needed 08/28/2017 09/29/2017 Inactive hydrocodone 5 mg-linh taminophen 325 mg tablet RxNorm: 068955 1 Tablet(s) PO Q6-8H as needed 07/23/2017 08/24/2017 Inactive lisinopril 10 mg tablet RxNorm: 867932 1 Tablet(s) PO BID Take 1 tablet by mout h daily 07/23/2017 01/13/2018 Inactive hydrocodone 5 mg-linh taminophen 325 mg tablet RxNorm: 789033 1 Tablet(s) PO Q6-8H as needed 06/27/2017 07/22/2017 Inactive Xanax 0.5 mg tablet RxNorm: 050805 1 Tablet(s) PO TID 06/18/2017 10/25/2017 Inactive hydrocodone 5 mg-linh taminophen 325 mg tablet RxNorm: 986398 1 Tablet(s) PO Q6-8H as needed 05/27/2017 06/26/2017 Inactive Levaquin 500 mg tablet RxNorm: 181770 1 Tablet(s) PO daily 05/24/2017 05/23/2017 Inactive Levaquin 500 mg tablet RxNorm: 565539 1 Tablet(s) PO daily 05/24/2017 05/30/2017 Inactive Protonix 40 mg table t,delayed release RxNorm: 859249 Take 1 tablet by mout h daily 04/29/2017 09/15/2017 In active - Ref: [id number] hydrocodone 5 mg-linh taminophen 325 mg tablet RxNorm: 625395 1 Tablet(s) PO Q6-8H as needed 04/25/2017 05/26/2017 Inactive metformin 500 mg tablet RxNorm: 407606 Take 1 tablet by mouth daily 04/08/2017 12/29/2017 Inactive - First Attempt Ref: [id number] hydrocodone 5 mg-linh taminophen 325 mg tablet RxNorm: 880703 1 Tablet(s) PO Q6-8H as needed 03/27/2017 04/24/2017 Inactive hydrocodone 5 mg-linh taminophen 325 mg tablet RxNorm: 881481 1 Tablet(s) PO Q6-8H as needed 02/25/2017 03/26/2017 Inactive Protonix 40 mg table t,delayed release RxNorm: 282060 Tablet(s) Take 1 tabl et by mouth BID 02/25/2017 04/28/2017 Inactive Protonix 40 mg table t,delayed release RxNorm: 640212 Tablet(s) Take 1 tabl et by mouth BID 02/19/2017 02/18/2017 Inactive Protonix 40 mg table t,delayed release RxNorm: 021073 Tablet(s) Take 1 tabl et by mouth BID 02/19/2017 02/24/2017 Inactive lisinopril 10 mg tablet RxNorm: 610591 Take 1 tablet by mouth daily 01/29/2017 07/22/2017 Inactive - First Attempt Ref: [id number] hydrocodone 5 mg-linh taminophen 325 mg tablet RxNorm: 680081 1 Tablet(s) PO Q6-8H as needed 01/25/2017 02/24/2017 Inactive simvastatin 40 mg ta blet RxNorm: 069331 Tablet(s) Take 1 tabl et by mouth daily at bedtime 01/03/2017 12/28/2017 Inactive lisinopril 10 mg tablet RxNorm: 254454 Tablet(s) Take 1 tablet by mouth daily 01/03/2017 01/28/2017 In active Protonix 40 mg table t,delayed release RxNorm: 035378 Tablet(s) Take 1 tabl et by mouth daily 12/28/2016 02/18/2017 Inactive hydrocodone 5 mg-linh taminophen 325 mg tablet RxNorm: 189214 1 Tablet(s) PO Q6-8H as needed 12/26/2016 01/24/2017 Inactive Xanax 0.5 mg tablet RxNorm: 536951 1 Tablet(s) PO TID 12/12/2016 03/11/2017 Inactive simvastatin 40 mg ta blet RxNorm: 220979 Tablet(s) Take 1 tabl et by mouth daily at bedtime 11/30/2016 01/02/2017 Inactive simvastatin 40 mg ta blet RxNorm: 153351 Take 1 tablet by mout h daily at bedtime 11/29/2016 11/29/2016 In active - First Attempt Ref: [id number] Protonix 40 mg table t,delayed release RxNorm: 427593 Take 1 tablet by mout h daily 11/27/2016 12/27/2016 In active - First Attempt Ref: [id number] hydrocodone 5 mg-linh taminophen 325 mg tablet RxNorm: 074785 1 Tablet(s) PO Q6-8H as needed 11/26/2016 12/25/2016 Inactive hydrocodone 5 mg-linh taminophen 325 mg tablet RxNorm: 254428 1 Tablet(s) PO Q8 as needed 10/24/2016 11/25/2016 Inactive Xanax 0.5 mg tablet RxNorm: 359598 1 Tablet(s) PO TID 10/09/2016 12/25/2016 Inactive hydrocodone 5 mg-linh taminophen 325 mg tablet RxNorm: 138989 1 Tablet(s) PO Q8 as needed 09/27/2016 10/23/2016 Inactive lisinopril 10 mg tablet RxNorm: 052612 Take 1 tablet by mouth daily 09/25/2016 01/02/2017 Inactive - First Attempt Ref: [id number] Vitamin D2 50,000 un it capsule RxNorm: 939694 1 Capsule(s) PO QW 09/06/2016 No Stop Date Active hydrocodone 5 mg-linh taminophen 325 mg tablet RxNorm: 007821 1 Tablet(s) PO Q8 as needed 08/28/2016 09/26/2016 Inactive Toujeo SoloStar 300 unit/mL (1.5 mL) subcutaneous insulin pen RxNorm: 8474686 25 Unit(s) SQ QHS 08/23/2016 08/29/2017 Inactive dosage increase hydrocodone 5 mg-linh taminophen 325 mg tablet RxNorm: 826005 1 Tablet(s) PO Q8 as needed 07/26/2016 08/27/2016 Inactive Protonix 40 mg table t,delayed release RxNorm: 999480 Take 1 tablet by mout h daily 07/24/2016 11/26/2016 In active - First Attempt Ref: [id number] hydrocodone 5 mg-linh taminophen 325 mg tablet RxNorm: 805569 1 Tablet(s) PO Q8 as needed 06/19/2016 07/21/2016 Inactive Toujeo SoloStar 300 unit/mL (1.5 mL) subcutaneous insulin pen RxNorm: 1814953 32 Unit(s) SQ QHS 05/30/2016 08/22/2016 Inactive dosage increase hydrocodone 5 mg-linh taminophen 325 mg tablet RxNorm: 201652 1 Tablet(s) PO Q8 as needed 05/22/2016 06/18/2016 Inactive hydrocodone 5 mg-linh taminophen 325 mg tablet RxNorm: 667572 1 Tablet(s) PO Q8 as needed 04/18/2016 05/17/2016 Inactive Protonix 40 mg table t,delayed release RxNorm: 453933 Take 1 tablet by mout h daily 04/05/2016 07/03/2016 In active - Ref: [id number] metformin 500 mg tablet RxNorm: 883173 Take 1 tablet by mouth daily 04/04/2016 07/02/2016 Inactive - Ref: [id number] Xanax 0.5 mg tablet RxNorm: 843772 1 Tablet(s) PO TID 03/30/2016 09/25/2016 Inactive Xanax 0.5 mg tablet RxNorm: 254418 1 Tablet(s) PO TID 03/23/2016 12/25/2016 Inactive hydrocodone 5 mg-linh taminophen 325 mg tablet RxNorm: 945801 1 Tablet(s) PO Q8 as needed 03/06/2016 04/04/2016 Inactive Cipro 500 mg tablet RxNorm: 482798 1 Tablet(s) PO BID 02/24/2016 03/04/2016 Inactive Miralax 17 gram oral powder packet RxNorm: 494248 1 packet PO every oth er day 01/27/2016 No Stop Date Active hydrocodone 5 mg-linh taminophen 325 mg tablet RxNorm: 482635 1 Tablet(s) PO Q8 as needed 01/27/2016 02/25/2016 Inactive lisinopril 10 mg tablet RxNorm: 663504 1 Tablet(s) PO daily 01/12/2016 09/24/2016 Inactive simvastatin 40 mg ta blet RxNorm: 666592 1 Tablet(s) PO QHS 01/12/2016 11/28/2016 Inactive simvastatin 40 mg ta blet RxNorm: 056206 1 Tablet(s) PO QHS 01/11/2016 01/11/2016 Inactive lisinopril 10 mg tablet RxNorm: 801434 1 Tablet(s) PO daily 01/06/2016 01/11/2016 Inactive simvastatin 40 mg ta blet RxNorm: 949955 1 Tablet(s) PO daily 12/28/2015 01/10/2016 Inactive hydrocodone 5 mg-linh taminophen 325 mg tablet RxNorm: 935163 1 Tablet(s) PO Q8 as needed 12/27/2015 01/26/2016 Inactive Xanax 0.5 mg tablet RxNorm: 453398 1 Tablet(s) PO TID 11/30/2015 03/29/2016 Inactive meclizine 25 mg tablet RxNorm: 156662 1 Tablet(s) PO Q6 PRN TAKE ONE TABLET BY MOUTH EVERY 6 HOURS NEEDED 11/25/2015 02/22/2016 Inactive Toujeo SoloStar 300 unit/mL (1.5 mL) subcutaneous insulin pen RxNorm: 7725186 30 Unit(s) SQ QHS 11/25/2015 05/29/2016 Inactive dosage increase omeprazole 20 mg cap jacquelyn,delayed release RxNorm: 341509 1 Capsule(s) PO daily 10/06/2015 01/26/2016 In active Toujeo SoloStar 300 unit/mL (1.5 mL) subcutaneous insulin pen RxNorm: 1108997 35 Unit(s) SQ QHS 08/02/2015 11/24/2015 Inactive dosage increase Vitamin D2 50,000 un it capsule RxNorm: 629843 1 Capsule(s) PO QW 08/02/2015 09/05/2016 Inactive hydrocodone 5 mg-linh taminophen 325 mg tablet RxNorm: 527113 1 Tablet(s) PO Q8 as needed 07/11/2015 12/26/2015 Inactive Xanax 0.5 mg tablet RxNorm: 526304 1 Tablet(s) PO TID 06/30/2015 06/29/2015 Inactive Xanax 0.5 mg tablet RxNorm: 147180 1 Tablet(s) PO TID 06/30/2015 12/25/2015 Inactive hydrocodone 5 mg-linh taminophen 325 mg tablet RxNorm: 760948 1 Tablet(s) PO Q8 as needed 05/06/2015 07/10/2015 Inactive Symbicort 160 mcg-4. 5 mcg/actuation HFA aerosol inhaler RxNorm: 6622488 INH 04/25/2015 No Stop Date Active Levemir FlexTouch 10 0 unit/mL (3 mL) subcutaneous insulin pen RxNorm: 842967 30 Unit(s) SQ QHS 04/25/2015 11/24/2015 Inactive prednisone 20 mg tablet RxNorm: 725217 1 Tablet(s) PO BID 04/25/2015 04/29/2015 Inactive metformin 500 mg tablet RxNorm: 208349 1 Tablet(s) PO daily 04/25/2015 04/03/2016 Inactive amoxicillin 500 mg c apsule RxNorm: 637935 1 Capsule(s) PO TID 04/14/2015 04/13/2015 Inactive amoxicillin 500 mg c apsule RxNorm: 056993 1 Capsule(s) PO TID a nd recommend probiotic tid (otc) 04/14/2015 04/20/2015 Inactive Kenalog 40 mg/mL bartolome pension for injection RxNorm: 1748671 Milliliter(s) Inj 04/12/2015 04/12/2015 In active hydrocodone 5 mg-linh taminophen 325 mg tablet RxNorm: 410079 1 Tablet(s) PO Q8 as needed 03/30/2015 05/05/2015 Inactive Lantus 100 unit/mL s ubcutaneous solution RxNorm: 343708 25 Unit(s) SQ QPM 03/24/2015 04/25/2015 In active meclizine 25 mg tablet RxNorm: 961004 Tablet(s) TAKE ONE TABLET BY MOUTH EVERY 6 HOURS NEEDED 03/08/2015 04/06/2015 Inactive meclizine 25 mg tablet RxNorm: 641621 TAKE ONE TABLET BY MOUTH EVERY 6 HOURS A S NEEDED 02/25/2015 03/03/2015 Inactive Lantus 100 unit/mL s ubcutaneous solution RxNorm: 808432 20 Unit(s) SQ QPM 02/23/2015 03/23/2015 In active Lantus 100 unit/mL s ubcutaneous solution RxNorm: 073151 25 Unit(s) SQ QPM 02/23/2015 02/22/2015 In active hydrocodone 5 mg-linh taminophen 325 mg tablet RxNorm: 830741 1 Tablet(s) PO Q8 as needed 02/17/2015 03/29/2015 Inactive Xanax 0.5 mg tablet RxNorm: 864253 1 Tablet(s) PO TID 02/03/2015 06/29/2015 Inactive Lantus 100 unit/mL s ubcutaneous solution RxNorm: 021177 20 Unit(s) SQ QPM 12/29/2014 02/22/2015 In active Phenergan 12.5 mg re ctal suppository RxNorm: 317000 1 Suppository RTL Q6 PRN 12/23/2014 No Stop Date Active nausea Kenalog 40 mg/mL bartolome pension for injection RxNorm: 2617088 Milliliter(s) Inj 12/23/2014 12/23/2014 In active prednisone 20 mg tablet RxNorm: 283280 2 Tablet(s) PO daily 12/13/2014 12/17/2014 Inactive prednisone 20 mg tablet RxNorm: 074659 2 Tablet(s) PO daily 12/13/2014 12/12/2014 Inactive meclizine 25 mg tablet RxNorm: 704150 1 Tablet(s) PO Q6 PRN 12/09/2014 02/24/2015 Inactive hydrocodone 5 mg-linh taminophen 325 mg tablet RxNorm: 979740 1 Tablet(s) PO Q8 as needed 12/09/2014 02/16/2015 Inactive Vitamin B-12 1,000 m cg/mL oral drops RxNorm: 0043425 1 Milliliter(s) PO d aily No Start Date Active Alphagan P 0.1 % eye drops RxNorm: 679492 1 Drop(s) OPH BID No Start Date Active aspirin 325 mg table t,delayed release RxNorm: 383411 1 Tablet(s) PO daily No Start Date Active Tricor 145 mg tablet RxNorm: 557494 1 Tablet(s) PO daily No Start Date Active vitamin [id number] B1 oral liquid RxNorm: 1,000 Microgram(s) PO daily No Start Date Active atenolol 50 mg tablet RxNorm: 121467 1 Tablet(s) PO daily No Start Date Active Protonix 40 mg table t,delayed release RxNorm: 926763 1 Tablet(s) PO daily No Start Date 04/04/2016 Inactive glipizide 10 mg tablet RxNorm: 957436 1 Tablet(s) PO BID No Start Date 03/22/2015 Inactive Lantus 100 unit/mL s ubcutaneous solution RxNorm: 865192 15 Unit(s) SQ QPM No Start Date 12/28/2014 Inactive lisinopril 10 mg tablet RxNorm: 186697 1 Tablet(s) PO daily No Start Date 01/05/2016 Inactive Vitamin D2 50,000 un it capsule RxNorm: 767160 1 Capsule(s) PO QW No Start Date 08/01/2015 Inactive Yovana SoloStar 300 unit/mL (1.5 mL) subcutaneous insulin pen RxNorm: 0511827 30 Unit(s) SQ QHS No Start Date 08/01/2015 Inactive simvastatin 40 mg ta blet RxNorm: 444621 1 Tablet(s) PO daily No Start Date 12/27/2015 Inactive testosterone cypiona te 200 mg/mL intramuscular oil RxNorm: 707892 1 Milliliter(s) IM monthly No Start Date 01/16/2018 Inactive hydrocodone 5 mg-linh taminophen 325 mg tablet RxNorm: 313400 1 Tablet(s) PO Q8 as needed No Start Date 12/08/2014 Inactive metformin 500 mg tablet RxNorm: 117395 1 Tablet(s) PO daily No Start Date 04/24/2015 Inactive omeprazole 20 mg cap jacquelyn,delayed release RxNorm: 748556 1 Capsule(s) PO daily No Start Date 10/05/2015 Inactive Flomax 0.4 mg capsule RxNorm: 195944 1 Capsule(s) PO daily No Start Date 03/23/2015 Inactive Medication Administered Medication Codes Instruc tions Start Date Status testosterone cypionate 200 mg/mL intramuscular oil RxNorm: 6673039 Milliliter 08/08/2018 Active testosterone cypionate 200 mg/mL intramuscular oil RxNorm: 2271584 1/2Milliliter 07/28/2018 No longer Active testosterone cypionate 200 mg/mL intramuscular oil RxNorm: 626794 Milliliter 07/16/2018 No longer Active testosterone cypionate 200 mg/mL intramuscular oil RxNorm: 203559 Milliliter 07/02/2018 No longer Active testosterone cypionate 200 mg/mL intramuscular oil RxNorm: 990372 Milliliter 06/24/2018 No longer Active testosterone cypionate 200 mg/mL intramuscular oil RxNorm: 220748 Milliliter 06/13/2018 No longer Active testosterone cypionate 200 mg/mL intramuscular oil RxNorm: 902370 Milliliter 06/05/2018 No longer Active testosterone cypionate 200 mg/mL intramuscular oil RxNorm: 844326 Milliliter 05/30/2018 No longer Active testosterone cypionate 200 mg/mL intramuscular oil RxNorm: 151057 Milliliter 05/22/2018 No longer Active testosterone cypionate 200 mg/mL intramuscular oil RxNorm: 654192 1/2Milliliter 05/12/2018 No longer Active testosterone cypionate 200 mg/mL intramuscular oil RxNorm: 074641 Milliliter 05/02/2018 No longer Active testosterone cypionate 200 mg/mL intramuscular oil RxNorm: 203617 0.5Milliliter 04/24/2018 No longer Active testosterone cypionate 200 mg/mL intramuscular oil RxNorm: 724366 1/2Milliliter 04/17/2018 No longer Active ketorolac 60 mg/2 mL intramuscular solution RxNorm: 9743787 Milliliter 03/07/2018 No longer Active Kenalog 40 mg/mL suspension for injection RxNorm: 7300278 1.5Milliliter 01/30/2018 No longer Active testosterone cypionate 200 mg/mL intramuscular oil RxNorm: 521407 Milliliter 01/17/2018 No longer Active Kenalog 40 mg/mL suspension for injection RxNorm: 0139738 Milliliter 04/12/2015 No longer Active Kenalog 40 mg/mL suspension for injection RxNorm: 9292898 Milliliter 12/23/2014 No longer Active Immunizations Vaccine [...] Item Item Code Result Date Comp Metabolic Lds577 NA 139 mEq/L 04/01/2018 Comp Metabolic Fav077 K 4.2 mEq/L 04/01/2018 Comp Metabolic Udq301 CL 102 mEq/L 04/01/2018 Comp Metabolic Tjq769 CO2 29.0 mEq/L 04/01/2018 Comp Metabolic Aei512 AN ION GAP 12 04/01/2018 Comp Metabolic Mrt351 GL UCOSE 87 mg/dL 04/01/2018 Comp Metabolic Rxo987 Cr eat 1.1 mg/dL 04/01/2018 Comp Metabolic Viw242 eG FR 70 ml/min/1.73m2 04/01 Comp Metabolic Vri314 BUN 21 mg/dL 04/01/2018 Comp Metabolic Phm904 B/ C Ratio 19.4 Ratio 04/01/2018 Comp Metabolic Rna652 CA LCIUM 9.1 mg/dL 04/01/2018 Comp Metabolic Emg002 AL K PHOS 60 U/L 04/01/2018 Comp Metabolic Owj638 T(SGOT) 15 U/L 04/01/2018 Comp Metabolic Ktv371 AL T(SGPT) 18 U/L 04/01/2018 Comp Metabolic Jqr427 BI LI T 0.4 mg/dL 04/01/2018 Comp Metabolic Jwz341 AL BUMIN 4.0 g/dL 04/01/2018 Comp Metabolic Gup939 TP RO 6.5 g/dL 04/01/2018 Comp Metabolic Jbo077 GL OB 2.5 g/dL 04/01/2018 Comp Metabolic Wqt891 A/ G Ratio 1.6 Ratio 04/01/2018 Comp Metabolic Yur090 Os mo 280 mOsmo 04/01/2018 Lipid Ord30 [...] 34.3 pg 04/01/2018 Cbc With Differential Ord2 Sherman% 6.0 % 04/01/2018 Cbc With Differential Ord2 [...] 3.25 K/ul 04/01/2018 Cbc With Differential Ord2 Sherman ABS# 0.6 K/ul 04/01/2018 Cbc With Differential Ord2 Eos ABS# 0.4 K/ul 04/01/2018 Cbc With Differential Ord2 Baso ABS# 0.0 K/ul 04/01/2018 %Hba1C Rdu317 % HbA1c 81129-9 8.0 % 04/01/2018 %Hba1C Vzl415 Gluc Ave 183 mg/dL 04/01/2018 Testosterone Dou205 Testo 111.3 ng/dL 04/01/2018 Testosterone Gkw995 Testo 135.4 ng/dL 01/14/2018 Cbc With Differential [...] 36.0 pg 01/14/2018 Cbc With Differential Ord2 Sherman% 6.8 % 01/14/2018 Cbc With Differential Ord2 [...] 2.71 K/ul 01/14/2018 Cbc With Differential Ord2 Sherman ABS# 0.8 K/ul 01/14/2018 Cbc With Differential Ord2 Eos ABS# 0.2 K/ul 01/14/2018 Cbc With Differential Ord2 Baso ABS# 0.0 K/ul 01/14/2018 Comp Metabolic Qbx929 NA 134 mEq/L 11/20/2017 Comp Metabolic Oxf021 K 4.4 mEq/L 11/20/2017 Comp Metabolic Pck473 CL 99 mEq/L 11/20/2017 Comp Metabolic Xvu608 CO2 29.0 mEq/L 11/20/2017 Comp Metabolic Rws391 AN ION GAP 10 11/20/2017 Comp Metabolic Ngr535 GL UCOSE 218 mg/dL 11/20/2017 Comp Metabolic Dxv121 Cr eat 1.0 mg/dL 11/20/2017 Comp Metabolic Dtt905 eG FR 78 ml/min/1.73m2 11/20 Comp Metabolic Kvr730 BUN 13 mg/dL 11/20/2017 Comp Metabolic Ard664 B/ C Ratio 13.3 Ratio 11/20/2017 Comp Metabolic Khi773 CA LCIUM 9.0 mg/dL 11/20/2017 Comp Metabolic Lzy400 AL K PHOS 71 U/L 11/20/2017 Comp Metabolic Fho988 T(SGOT) 18 U/L 11/20/2017 Comp Metabolic Bip393 AL T(SGPT) 17 U/L 11/20/2017 Comp Metabolic Oju014 BI LI T 0.4 mg/dL 11/20/2017 Comp Metabolic Lls530 AL BUMIN 4.1 g/dL 11/20/2017 Comp Metabolic Igf811 TP RO 6.5 g/dL 11/20/2017 Comp Metabolic Uha505 GL OB 2.4 g/dL 11/20/2017 Comp Metabolic Znl723 A/ G Ratio 1.8 Ratio 11/20/2017 Comp Metabolic Wps990 Os mo 275 mOsmo 11/20/2017 Cbc With [...] 35.2 pg 11/20/2017 Cbc With Differential Ord2 Sherman% 7.2 % 11/20/2017 Cbc With Differential Ord2 [...] 3.34 K/ul 11/20/2017 Cbc With Differential Ord2 Sherman ABS# 0.6 K/ul 11/20/2017 Cbc With Differential Ord2 Eos ABS# 0.3 K/ul 11/20/2017 Cbc With Differential Ord2 Baso ABS# 0.0 K/ul 11/20/2017 Vitamin D 25 Oh Wog2858 VITAMIN D, 25 HYDROXY 43.72 ng/mL 11/20/2017 %Hba1C Jta858 % HbA1c 97648-0 7.4 % 11/20/2017 %Hba1C Glf182 Gluc Ave 166 mg/dL 11/20/2017 %Hba1C Dby326 % HbA1c 30823-8 7.2 % 08/20/2017 %Hba1C Gsq410 Gluc Ave 160 mg/dL 08/20/2017 Lipid Ord30 [...] 34.7 pg 08/20/2017 Cbc With Differential Ord2 Sherman% 7.6 % 08/20/2017 Cbc With Differential Ord2 [...] 2.42 K/ul 08/20/2017 Cbc With Differential Ord2 [place] ABS# 0.6 K/ul 08/20/2017 Cbc With Differential Ord2 Eos ABS# 0.3 K/ul 08/20/2017 Cbc With Differential Ord2 Baso ABS# 0.0 K/ul 08/20/2017 Tsh Ord6 hTSH II 2.27 uIU/mL 08/20/2017 Comp Metabolic Bhk286 NA 138 mEq/L 08/20/2017 Comp Metabolic Ppq558 K 4.3 mEq/L 08/20/2017 Comp Metabolic Yqu954 CL 102 mEq/L 08/20/2017 Comp Metabolic Dpo522 CO2 29.0 mEq/L 08/20/2017 Comp Metabolic Yqz360 AN ION GAP 11 08/20/2017 Comp Metabolic Gls384 GL UCOSE 89 mg/dL 08/20/2017 Comp Metabolic Exd653 Cr eat 1.0 mg/dL 08/20/2017 Comp Metabolic Key012 eG FR 80 ml/min/1.73m2 08/20 Comp Metabolic Dne705 BUN 13 mg/dL 08/20/2017 Comp Metabolic Cds315 B/ C Ratio 13.5 Ratio 08/20/2017 Comp Metabolic Itt622 CA LCIUM 9.2 mg/dL 08/20/2017 Comp Metabolic Uaf154 AL K PHOS 69 U/L 08/20/2017 Comp Metabolic Nur754 T(SGOT) 18 U/L 08/20/2017 Comp Metabolic Qbx804 AL T(SGPT) 19 U/L 08/20/2017 Comp Metabolic Yvv566 BI LI T 0.6 mg/dL 08/20/2017 Comp Metabolic Smk612 AL BUMIN 4.0 g/dL 08/20/2017 Comp Metabolic Qiz758 TP RO 6.6 g/dL 08/20/2017 Comp Metabolic Xqd466 GL OB 2.6 g/dL 08/20/2017 Comp Metabolic Vfp063 A/ G Ratio 1.5 Ratio 08/20/2017 Comp Metabolic Kwh082 Os mo 275 mOsmo 08/20/2017 Vitamin D 25 Oh Vnq7452 VITAMIN D, 25 HYDROXY 30.96 ng/mL 08/20/2017 B12 Kic241 B12 >1500.00 pg/ml 02/22/2017 Cbc With Differential [...] 35.7 pg 02/20/2017 Cbc With Differential Ord2 Sherman% 6.3 % 02/20/2017 Cbc With Differential Ord2 [...] 3.19 K/ul 02/20/2017 Cbc With Differential Ord2 [place] ABS# 0.5 K/ul 02/20/2017 Cbc With Differential Ord2 Eos ABS# 0.4 K/ul 02/20/2017 Cbc With Differential Ord2 Baso ABS# 0.0 K/ul 02/20/2017 Comp Metabolic Iva200 NA 138 mEq/L 02/20/2017 Comp Metabolic Ljm351 K 4.5 mEq/L 02/20/2017 Comp Metabolic Ahv137 CL 101 mEq/L 02/20/2017 Comp Metabolic Ngg121 CO2 31.0 mEq/L 02/20/2017 Comp Metabolic Jul756 AN ION GAP 11 02/20/2017 Comp Metabolic Huf384 GL UCOSE 120 mg/dL 02/20/2017 Comp Metabolic Bnp312 Cr eat 0.9 mg/dL 02/20/2017 Comp Metabolic Dfp333 eG FR 83 ml/min/1.73m2 02/20 Comp Metabolic Dvg203 BUN 15 mg/dL 02/20/2017 Comp Metabolic Dqf733 B/ C Ratio 16.1 Ratio 02/20/2017 Comp Metabolic Pre645 CA LCIUM 9.1 mg/dL 02/20/2017 Comp Metabolic Hzt748 AL K PHOS 67 U/L 02/20/2017 Comp Metabolic Isx435 T(SGOT) 15 U/L 02/20/2017 Comp Metabolic Gnp821 AL T(SGPT) 16 U/L 02/20/2017 Comp Metabolic Itb847 BI LI T 0.5 mg/dL 02/20/2017 Comp Metabolic Nkq543 AL BUMIN 4.0 g/dL 02/20/2017 Comp Metabolic Hpw355 TP RO 6.4 g/dL 02/20/2017 Comp Metabolic Fuu193 GL OB 2.4 g/dL 02/20/2017 Comp Metabolic Rfb041 A/ G Ratio 1.7 Ratio 02/20/2017 Comp Metabolic Kwo738 Os mo 278 mOsmo 02/20/2017 Tsh Ord6 hTSH II 2.05 uIU/mL 02/20/2017 %Hba1C Ydj557 % HbA1c 35125-6 7.6 % 02/20/2017 %Hba1C Kho483 Gluc Ave 171 mg/dL 02/20/2017 Vitamin D 25 Oh Ifz3404 VITAMIN D, 25 HYDROXY 44.40 ng/mL 12/21/2016 Comp Metabolic Owh670 NA 131 mEq/L 12/21/2016 Comp Metabolic Hay664 K 4.2 mEq/L 12/21/2016 Comp Metabolic Vtm208 CL 97 mEq/L 12/21/2016 Comp Metabolic Tev572 CO2 27.0 mEq/L 12/21/2016 Comp Metabolic Gjm903 AN ION GAP 11 12/21/2016 Comp Metabolic Xlc926 GL UCOSE 266 mg/dL 12/21/2016 Comp Metabolic Gfa322 Cr eat 0.9 mg/dL 12/21/2016 Comp Metabolic Bvb700 eG FR 88 ml/min/1.73m2 12/21 Comp Metabolic Wpw217 BUN 12 mg/dL 12/21/2016 Comp Metabolic Ykf299 B/ C Ratio 13.6 Ratio 12/21/2016 Comp Metabolic Gpl051 CA LCIUM 8.6 mg/dL 12/21/2016 Comp Metabolic Ybj631 AL K PHOS 69 U/L 12/21/2016 Comp Metabolic Ilv476 T(SGOT) 15 U/L 12/21/2016 Comp Metabolic Pkj763 AL T(SGPT) 14 U/L 12/21/2016 Comp Metabolic Mpg116 BI LI T 0.3 mg/dL 12/21/2016 Comp Metabolic Zkt250 AL BUMIN 3.7 g/dL 12/21/2016 Comp Metabolic Wih636 TP RO 5.9 g/dL 12/21/2016 Comp Metabolic Mwa513 GL OB 2.2 g/dL 12/21/2016 Comp Metabolic Rmi698 A/ G Ratio 1.7 Ratio 12/21/2016 Comp Metabolic Dkj978 Os mo 272 mOsmo 12/21/2016 Cbc With [...] 34.6 pg 12/21/2016 Cbc With Differential Ord2 Sherman% 6.9 % 12/21/2016 Cbc With Differential Ord2 [...] 2.05 K/ul 12/21/2016 Cbc With Differential Ord2 [place] ABS# 0.4 K/ul 12/21/2016 Cbc With Differential Ord2 Eos ABS# 0.2 K/ul 12/21/2016 Cbc With Differential Ord2 Baso ABS# 0.0 K/ul 12/21/2016 Comp Metabolic Tgs072 NA 138 mEq/L 09/03/2016 Comp Metabolic Czc259 K 4.5 mEq/L 09/03/2016 Comp Metabolic Ntz994 CL 102 mEq/L 09/03/2016 Comp Metabolic Qkd164 CO2 30.0 mEq/L 09/03/2016 Comp Metabolic Czk747 AN ION GAP 11 09/03/2016 Comp Metabolic Gke577 GL UCOSE 113 mg/dL 09/03/2016 Comp Metabolic Rzm558 Cr eat 1.0 mg/dL 09/03/2016 Comp Metabolic Avq007 eG FR 81 ml/min/1.73m2 09/03 Comp Metabolic Rlh008 BUN 10 mg/dL 09/03/2016 Comp Metabolic Dko003 B/ C Ratio 10.5 Ratio 09/03/2016 Comp Metabolic Aww197 CA LCIUM 9.1 mg/dL 09/03/2016 Comp Metabolic Ioc697 AL K PHOS 71 U/L 09/03/2016 Comp Metabolic Apk329 T(SGOT) 18 U/L 09/03/2016 Comp Metabolic Yzi375 AL T(SGPT) 17 U/L 09/03/2016 Comp Metabolic Puo730 BI LI T 0.6 mg/dL 09/03/2016 Comp Metabolic Dso007 AL BUMIN 4.1 g/dL 09/03/2016 Comp Metabolic Jgx496 TP RO 6.4 g/dL 09/03/2016 Comp Metabolic Wgk377 GL OB 2.3 g/dL 09/03/2016 Comp Metabolic Zth615 A/ G Ratio 1.8 Ratio 09/03/2016 Comp Metabolic Xih421 Os mo 276 mOsmo 09/03/2016 Vitamin D 25 Oh Xmw9915 VITAMIN D, 25 HYDROXY 28.23 ng/mL 09/03/2016 [...] 34.4 pg 09/03/2016 Cbc With Differential Ord2 Sherman% 8.9 % 09/03/2016 Cbc With Differential Ord2 [...] 3.34 K/ul 09/03/2016 Cbc With Differential Ord2 [place] ABS# 0.7 K/ul 09/03/2016 Cbc With Differential Ord2 Eos ABS# 0.4 K/ul 09/03/2016 Cbc With Differential Ord2 Baso ABS# 0.0 K/ul 09/03/2016 Lipid Ord30 CHOL 120 mg/dL 09/03/2016 Lipid Ord30 HDL 33.0 mg/dl 09/03/2016 Lipid Ord30 TRIG 161 mg/dL 09/03/2016 Lipid Ord30 LDL 55 mg/dL 09/03/2016 Lipid Ord30 C/HDL 3.6 Ratio 09/03/2016 %Hba1C Qtz859 % HbA1c 42744-5 7.5 % 09/03/2016 %Hba1C Ykt553 Gluc Ave 169 mg/dL 09/03/2016 Tsh Ord6 hTSH II 1.50 uIU/mL 05/23/2016 %Hba1C Jfg119 % HbA1c 45776-3 7.6 % 05/23/2016 %Hba1C Oqm251 Gluc Ave 171 mg/dL 05/23/2016 Comp Metabolic Xpq759 NA 135 mEq/L 05/23/2016 Comp Metabolic Zvc225 K 4.4 mEq/L 05/23/2016 Comp Metabolic Cxh029 CL 99 mEq/L 05/23/2016 Comp Metabolic Ozf478 CO2 28.0 mEq/L 05/23/2016 Comp Metabolic Dwm168 AN ION GAP 12 05/23/2016 Comp Metabolic Fsy347 GL UCOSE 257 mg/dL 05/23/2016 Comp Metabolic Vfr929 Cr eat 0.8 mg/dL 05/23/2016 Comp Metabolic Qbk085 eG FR 95 ml/min/1.73m2 05/23 Comp Metabolic Oxm408 BUN 11 mg/dL 05/23/2016 Comp Metabolic Yib532 B/ C Ratio 13.3 Ratio 05/23/2016 Comp Metabolic Zhl466 CA LCIUM 9.0 mg/dL 05/23/2016 Comp Metabolic Oer925 AL K PHOS 82 U/L 05/23/2016 Comp Metabolic Ezf899 T(SGOT) 21 U/L 05/23/2016 Comp Metabolic Qdo098 AL T(SGPT) 20 U/L 05/23/2016 Comp Metabolic Trb647 BI LI T 0.3 mg/dL 05/23/2016 Comp Metabolic Rmc628 AL BUMIN 4.0 g/dL 05/23/2016 Comp Metabolic Wvs650 TP RO 6.4 g/dL 05/23/2016 Comp Metabolic Trq156 GL OB 2.4 g/dL 05/23/2016 Comp Metabolic Guo538 A/ G Ratio 1.6 Ratio 05/23/2016 Comp Metabolic Tvi662 Os mo 278 mOsmo 05/23/2016 Cbc With [...] 34.5 pg 05/23/2016 Cbc With Differential Ord2 Sherman% 6.1 % 05/23/2016 Cbc With Differential Ord2 [...] 2.38 K/ul 05/23/2016 Cbc With Differential Ord2 [place] ABS# 0.4 K/ul 05/23/2016 Cbc With Differential Ord2 Eos ABS# 0.2 K/ul 05/23/2016 Cbc With Differential Ord2 Baso ABS# 0.0 K/ul 05/23/2016 B12 Lzd829 B12 597.00 pg/ml 05/23/2016 Metabolic Ord15 NA [...] 0.92 uIU/mL 07/29/2015 Vitamin D 25 Oh Yem6021 VITAMIN D, 25 HYDROXY 26.93 ng/mL 07/29/2015 %Hba1C Cfe252 % HbA1c 30806-0 8.8 % 07/29/2015 %Hba1C Dav029 Gluc Ave 206 mg/dL 07/29/2015 Cbc With [...] Ord2 RDW 14.9 % 07/29/2015 Comp Metabolic Yhk791 NA 138 mEq/L 07/29/2015 Comp Metabolic Axp415 K 4.4 mEq/L 07/29/2015 Comp Metabolic Gfu333 CL 102 mEq/L 07/29/2015 Comp Metabolic Qup107 CO2 28.0 mEq/L 07/29/2015 Comp Metabolic Hpc594 AN ION GAP 12 07/29/2015 Comp Metabolic Zdx089 GL UCOSE 261 mg/dL 07/29/2015 Comp Metabolic Fnm604 Cr eat 1.0 mg/dL 07/29/2015 Comp Metabolic Ezw175 eG FR 77 ml/min/1.73m2 07/29 Comp Metabolic Xwi778 BUN 13 mg/dL 07/29/2015 Comp Metabolic Hgt867 B/ C Ratio 13.0 Ratio 07/29/2015 Comp Metabolic Vti915 CA LCIUM 9.1 mg/dL 07/29/2015 Comp Metabolic Vcs042 AL K PHOS 64 U/L 07/29/2015 Comp Metabolic Qed495 T(SGOT) 20 U/L 07/29/2015 Comp Metabolic Xzo465 AL T(SGPT) 22 U/L 07/29/2015 Comp Metabolic Jtf249 BI LI T 0.4 mg/dL 07/29/2015 Comp Metabolic Vts774 AL BUMIN 4.0 g/dL 07/29/2015 Comp Metabolic Hri594 TP RO 6.1 g/dL 07/29/2015 Comp Metabolic Ufr640 GL OB 2.1 g/dL 07/29/2015 Comp Metabolic She419 A/ G Ratio 1.9 Ratio 07/29/2015 Comp Metabolic Ioe845 Os mo 285 mOsmo 07/29/2015 Cbc With [...] Ord2 RDW 13.1 % 05/06/2015 Comp Metabolic Gjs686 NA 134 mEq/L 05/06/2015 Comp Metabolic Myx267 K 4.4 mEq/L 05/06/2015 Comp Metabolic Iyk095 CL 98 mEq/L 05/06/2015 Comp Metabolic Xyj719 CO2 29.0 mEq/L 05/06/2015 Comp Metabolic Agi987 AN ION GAP 11 05/06/2015 Comp Metabolic Rqu651 GL UCOSE 321 mg/dL 05/06/2015 Comp Metabolic Glk027 Cr eat 1.0 mg/dL 05/06/2015 Comp Metabolic Llj133 eG FR 78 ml/min/1.73m2 05/06 Comp Metabolic Fdz608 BUN 20 mg/dL 05/06/2015 Comp Metabolic Rsm953 B/ C Ratio 20.4 Ratio 05/06/2015 Comp Metabolic Ikt446 CA LCIUM 9.5 mg/dL 05/06/2015 Comp Metabolic Fur610 AL K PHOS 62 U/L 05/06/2015 Comp Metabolic Gjq169 T(SGOT) 21 U/L 05/06/2015 Comp Metabolic Aoo282 AL T(SGPT) 37 U/L 05/06/2015 Comp Metabolic Oou639 BI LI T 0.4 mg/dL 05/06/2015 Comp Metabolic Bfq183 AL BUMIN 3.8 g/dL 05/06/2015 Comp Metabolic Hvl853 TP RO 6.1 g/dL 05/06/2015 Comp Metabolic Crd398 GL OB 2.3 g/dL 05/06/2015 Comp Metabolic Wyw522 A/ G Ratio 1.7 Ratio 05/06/2015 Comp Metabolic Yac777 Os mo 283 mOsmo 05/06/2015 Tsh Ord6 hTSH II 1.65 uIU/mL 02/18/2015 B12 Pjr886 B12 605.00 pg/ml 02/18/2015 %Hba1C Jyi999 % HbA1c 99063-5 8.3 % 02/18/2015 %Hba1C Sgh452 Gluc Ave 192 mg/dL 02/18/2015 Cbc With [...] Ord2 RDW 13.9 % 02/17/2015 Comp Metabolic Psx084 NA 137 mEq/L 02/17/2015 Comp Metabolic Iht524 K 4.4 mEq/L 02/17/2015 Comp Metabolic Wdi359 CL 100 mEq/L 02/17/2015 Comp Metabolic Msl579 CO2 31.0 mEq/L 02/17/2015 Comp Metabolic Kde017 AN ION GAP 10 02/17/2015 Comp Metabolic Lqq101 GL UCOSE 307 mg/dL 02/17/2015 Comp Metabolic Ixt189 Cr eat 1.0 mg/dL 02/17/2015 Comp Metabolic Ytf937 eG FR 74 ml/min/1.73m2 02/17 Comp Metabolic Ndn898 BUN 22 mg/dL 02/17/2015 Comp Metabolic Tnu096 B/ C Ratio 21.4 Ratio 02/17/2015 Comp Metabolic Tts230 CA LCIUM 9.5 mg/dL 02/17/2015 Comp Metabolic Nmj558 AL K PHOS 78 U/L 02/17/2015 Comp Metabolic Sxd695 T(SGOT) 18 U/L 02/17/2015 Comp Metabolic Lxg183 AL T(SGPT) 32 U/L 02/17/2015 Comp Metabolic Cke374 BI LI T 0.5 mg/dL 02/17/2015 Comp Metabolic Lbx996 AL BUMIN 4.3 g/dL 02/17/2015 Comp Metabolic Uxw071 TP RO 6.7 g/dL 02/17/2015 Comp Metabolic Ble745 GL OB 2.4 g/dL 02/17/2015 Comp Metabolic Wuc378 A/ G Ratio 1.8 Ratio 02/17/2015 Comp Metabolic Fds717 Os mo 289 mOsmo 02/17/2015 Review of [...] lips 12/20/2016 None Full Exam - General 1995 Ears/Nose/Throat lips/teeth/gingiva Overall: normal dentition 12/20/2016 None [...] Procedure Codes Date THER/PROPH/DIAG INJ SC/IM CPT-4: 06196 08/08/2018 THER/PROPH/DIAG INJ SC/IM CPT-4: 97452 07/28/2018 THER/PROPH/DIAG INJ SC/IM CPT-4: 03670 07/16/2018 THER/PROPH/DIAG INJ SC/IM CPT-4: 84756 07/02/2018 PPPS, SUBSEQ VISIT CPT- 4: G0439 06/30/2018 THER/PROPH/DIAG INJ SC/IM CPT-4: 50044 06/24/2018 THER/PROPH/DIAG INJ SC/IM CPT-4: 67146 06/13/2018 ADMIN INFLUENZA VIRU S VAC CPT-4: G0008 06/06/2018 FLU VACC PRSV FREE I NC ANTIG CPT-4: 94697 06/06/2018 THER/PROPH/DIAG INJ SC/IM CPT-4: 86330 06/05/2018 THER/PROPH/DIAG INJ SC/IM CPT-4: 92307 05/30/2018 THER/PROPH/DIAG INJ SC/IM CPT-4: 19327 05/22/2018 THER/PROPH/DIAG INJ SC/IM CPT-4: 42629 05/12/2018 THER/PROPH/DIAG INJ SC/IM CPT-4: 15214 05/02/2018 THER/PROPH/DIAG INJ SC/IM CPT-4: 01607 04/24/2018 THER/PROPH/DIAG INJ SC/IM CPT-4: 48999 04/17/2018 KETOROLAC TROMETHAMI NE INJ CPT-4: J1885 03/07/2018 URINALYSIS NONAUTO W /O SCOPE CPT-4: 90728 03/07/2018 THER/PROPH/DIAG INJ SC/IM CPT-4: 27323 02/20/2018 TRIAMCINOLONE ACET I [place] NOS CPT-4: J3301 01/30/2018 THER/PROPH/DIAG INJ SC/IM CPT-4: 86504 01/17/2018 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 3-[address]: 949611141 CPT-4: G0436 04/25/2017 ADMIN INFLUENZA VIRU S VAC CPT-4: G0008 04/25/2017 ADMIN PNEUMOCOCCAL V ACCINE SNOMED CT: 26079499 CPT-4: G0009 04/25/2017 PNEUMOCOCCAL VACC [address]: 44100247 CPT-4: 24480 04/25/2017 FLU VACC PRSV FREE I NC ANTIG CPT-4: 22491 04/25/2017 ADMIN INFLUENZA VIRU S VAC CPT-4: G0008 05/22/2016 FLU VACC 4 TELLY 3 YRS PLUS IM Formatting Model/CDA Sections, Assigned to/Angela Clemons SNOMED CT: 14756680 CPT-4: 47898Pmtswry 05/22/2016 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 3-[address]: 407913423 CPT-4: G0436 11/25/2015 URINALYSIS NONAUTO W /O SCOPE CPT-4: 73593 05/09/2015 TRIAMCINOLONE ACET I [place] NOS CPT-4: J3301 04/12/2015 DESTRUCT PREMALG LESION CPT-4: 14054 03/07/2015 DESTRUCT PREMALG LES 2-14 CPT-4: 03964 03/07/2015 REMOVE IMPACTED EAR WAX UNI CPT-4: 02200 12/31/2014 THER/PROPH/DIAG INJ SC/IM CPT-4: 69442 12/23/2014 TRIAMCINOLONE ACET I [place] NOS CPT-4: J3301 12/23/2014 Vital Signs Date Vital 06/30/2018 BMI: 21.8 Code: 72475-6 Height: 5'11" Weight: 156 lbs 06/06/2018 Blood Pressure 1: 128/76 Code: 8480-6 BMI: 22.0 Code: 56484-7 Heart Rate 1: 81 bpm Height: 5'11" SpO2: 92% Weight: 158 lbs 04/04/2018 Blood Pressure 1: 124/70 Code: 8480-6 BMI: 20.8 Code: 50762-0 Heart Rate 1: 65 bpm Height: 5'11" SpO2: 95% Weight: 149 lbs 03/07/2018 Blood Pressure 1: 148/70 Code: 8480-6 BMI: 21.2 Code: 94029-2 Heart Rate 1: 66 bpm Height: 5'11" SpO2: 94% Weight: 152 lbs 02/20/2018 Blood Pressure 1: 134/58 Code: 8480-6 BMI: 20.5 Code: 02324-6 Heart Rate 1: 61 bpm Height: 5'11" SpO2: 92% Weight: 147 lbs 01/30/2018 Blood Pressure 1: 158/68 Code: 8480-6 BMI: 21.5 Code: 76670-2 Heart Rate 1: 71 bpm Height: 5'11" SpO2: 92% Weight: 154 lbs 01/14/2018 Blood Pressure 1: 156/70 Code: 8480-6 Height: Weight: 01/13/2018 Blood Pressure 1: 148/62 Code: 8480-6 BMI: 20.9 Code: 16255-8 Heart Rate 1: 54 bpm Height: 5'11" SpO2: 97% Weight: 150 lbs 11/19/2017 Blood Pressure 1: 150/60 Code: 8480-6 BMI: 21.8 Code: 69782-9 Heart Rate 1: 63 bpm Height: 5'11" SpO2: 98% Weight: 156 lbs 10/02/2017 Blood Pressure 1: 168/60 Code: 8480-6 BMI: 21.9 Code: 28306-7 Heart Rate 1: 52 bpm Height: 5'11" SpO2: 97% Weight: 157 lbs 07/23/2017 Blood Pressure 1: 170/70 Code: 8480-6 BMI: 21.8 Code: 39592-0 Heart Rate 1: 65 bpm Height: 5'11" SpO2: 98% Weight: 156 lbs 04/25/2017 Blood Pressure 1: 138/60 Code: 8480-6 BMI: 21.6 Code: 55479-5 Heart Rate 1: 55 bpm Height: 5'11" SpO2: 93% Weight: 155 lbs 02/19/2017 Blood Pressure 1: 138/64 Code: 8480-6 BMI: 21.3 Code: 76240-1 Heart Rate 1: 52 bpm Height: 5'11" SpO2: 96% Weight: 152 lbs 8 oz 01/21/2017 Blood Pressure 1: 160/68 Code: 8480-6 BMI: 21.3 Code: 09036-3 Heart Rate 1: 62 bpm Height: 5'11" SpO2: 96% Weight: 153 lbs 12/20/2016 Blood Pressure 1: 124/66 Code: 8480-6 BMI: 21.5 Code: 59760-8 Height: 5'11" Weight: 154 lbs 08/23/2016 Blood Pressure 1: 142/52 Code: 8480-6 BMI: 21.2 Code: 34831-6 Heart Rate 1: 54 bpm Height: 5'11" SpO2: 96% Weight: 152 lbs 05/22/2016 Blood Pressure 1: 130/76 Code: 8480-6 BMI: 21.5 Code: 78263-8 Heart Rate 1: 78 bpm Height: 5'11" SpO2: 92% Weight: 154 lbs 02/24/2016 Blood Pressure 1: 128/80 Code: 8480-6 BMI: 21.2 Code: 61613-4 Heart Rate 1: 74 bpm Height: 5'11" SpO2: 96% Weight: 152 lbs 01/27/2016 Blood Pressure 1: 144/60 Code: 8480-6 BMI: 21.2 Code: 78096-0 Heart Rate 1: 74 bpm Height: 5'11" SpO2: 97% Weight: 152 lbs 11/25/2015 Blood Pressure 1: 110/52 Code: 8480-6 BMI: 21.9 Code: 38142-0 Heart Rate 1: 65 bpm Height: 5'11" SpO2: 92% Weight: 157 lbs 07/28/2015 Blood Pressure 1: 138/62 Code: 8480-6 BMI: 21.8 Code: 41098-7 Heart Rate 1: 63 bpm Height: 5'11" SpO2: 91% Weight: 156 lbs 05/26/2015 Blood Pressure 1: 120/58 Code: 8480-6 BMI: 21.5 Code: 91714-1 Heart Rate 1: 99 bpm Height: 5'11" SpO2: 96% Weight: 154 lbs 05/06/2015 Blood Pressure 1: 120/58 Code: 8480-6 BMI: 21.2 Code: 11189-7 Heart Rate 1: 66 bpm Height: 5'11" SpO2: 96% Weight: 152 lbs 04/25/2015 Blood Pressure 1: 136/62 Code: 8480-6 BMI: 21.2 Code: 57229-8 Heart Rate 1: 63 bpm Height: 5'11" SpO2: 97% Weight: 152 lbs 04/12/2015 Blood Pressure 1: 160/58 Code: 8480-6 BMI: 21.6 Code: 92933-9 Heart Rate 1: 62 bpm Height: 5'11" Weight: 155 lbs 03/24/2015 Blood Pressure 1: 138/68 Code: 8480-6 BMI: 22.0 Code: 89852-2 Heart Rate 1: 65 bpm Height: 5'11" SpO2: 96% Weight: 158 lbs 03/07/2015 Blood Pressure 1: 116/52 Code: 8480-6 BMI: 22.2 Code: 94675-6 Heart Rate 1: 64 bpm Height: 5'11" SpO2: 97% Weight: 159 lbs 02/17/2015 Blood Pressure 1: 148/58 Code: 8480-6 BMI: 21.3 Code: 57720-1 Heart Rate 1: 63 bpm Height: 5'11" SpO2: 97% Weight: 153 lbs 12/31/2014 Blood Pressure 1: 100/60 Code: 8480-6 BMI: 21.8 Code: 77275-1 Heart Rate 1: 68 bpm Height: 5'11" Weight: 156 lbs 12/23/2014 Blood Pressure 1: 148/64 Code: 8480-6 BMI: 21.9 Code: 15178-8 Heart Rate 1: 64 bpm Height: 5'11" [...] ongoing 03/07/2015 None Hospital Follow Up _ [facility] er: vertigo 03/07/2015 None Hospital Follow [...] Encounters Encounter Performer Loca tion Codes Date ([id number]) [id number] EST. P ATIENT, LEVEL IV Diagnosis: Cellulitis of face[ICD10: L03.211] Diagnosis: Type 2 diabetes mellitus without complications[ICD10: E11.9] Diagnosis: Essential (primary) hypertension[ICD10: I10] Diagnosis: Encounter for immunization[ICD10: Z23] Karmen Ash MD, [facility] CPT-4: 79964 06/06/2018 ([id number]) [id number] EST. 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 CPT-4: 41129 04/04/2018 ([id number]) [id number] EST. P ATIENT, LEVEL III Diagnosis: Low back pain[ICD10: M54.5] Diagnosis: Dysuria[ICD10: R30.0] Karmen Ash MD, [facility] CPT-4: 94531 03/07/2018 ([id number]) [id number] EST. 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 CPT-4: 17958 02/20/2018 ([id number]) 82131 EST. P ATIENT, LEVEL III Diagnosis: Chronic obstructive pulmonary disease with (acute) exacerbation[ICD10: J44.1] Karmen Ash MD, [facility] CPT-4: 25425 01/30/2018 [id number] EST. PATIENT, LEVEL II Diagnosis: Insect bite (nonvenomous), left lower leg, initial encounter[ICD10: S80.862A] Karmen Ash MD, [facility] CPT-4: 68353 01/14/2018 ([id number]) 18711 EST. P ATIENT, LEVEL IV Diagnosis: Type 2 diabetes mellitus with hyperglycemia[ICD10: E11.65] Diagnosis: Chronic obstructive pulmonary disease, unspecified[ICD10: J44.9] Diagnosis: Other fatigue[ICD10: R53.83] Karmen Ash MD, [facility] CPT- 4: 75418 01/13/2018 ([id number]) [id number] EST. P ATIENT, LEVEL IV Diagnosis: Type 2 diabetes mellitus with hyperglycemia[ICD10: E11.65] Diagnosis: Vitamin D deficiency, unspecified[ICD10: E55.9] Diagnosis: Essential (primary) hypertension[ICD10: I10] Diagnosis: Abdominal distension (gaseous)[ICD10: R14.0] Diagnosis: Drug induced constipation[ICD10: K59.03] Karmen Ash MD, [facility] CPT-4: 04574 11/19/2017 [id number] EST. PATIENT, LEVEL IV Diagnosis: Low back pain[ICD10: M54.5] Diagnosis: Chronic obstructive pulmonary disease, unspecified[ICD10: J44.9] Brunilda Ash MD, [facility] CPT-4: 98317 10/02/2017 ([id number]) 28082 EST. P ATIENT, LEVEL IV Diagnosis: Essential (primary) hypertension[ICD10: I10] Diagnosis: Type 2 diabetes mellitus with hyperglycemia[ICD10: E11.65] Diagnosis: Vitamin D deficiency, unspecified[ICD10: E55.9] Diagnosis: Mixed hyperlipidemia[ICD10: E78.2] Karmen Ash MD, [facility] CPT-4: 39817 07/23/2017 ([id number]) 70631 EST. P ATIENT, LEVEL IV Diagnosis: Essential (primary) hypertension[ICD10: I10] Diagnosis: Type 2 diabetes mellitus with hyperglycemia[ICD10: E11.65] Diagnosis: Chronic obstructive pulmonary disease, unspecified[ICD10: J44.9] Diagnosis: Nicotine dependence, unspecified, uncomplicated[ICD10: F17.200] Diagnosis: Encounter for immunization[ICD10: Z23] Karmen Ash MD, [facility] CPT-4: 39793 04/25/2017 ([id number]) 40464 EST. P ATIENT, LEVEL IV Diagnosis: Type 2 diabetes mellitus with hyperglycemia[ICD10: E11.65] Diagnosis: Essential (primary) hypertension[ICD10: I10] Diagnosis: Anemia, unspecified[ICD10: D64.9] Karmen Ash MD, [facility] CPT- 4: 09492 02/19/2017 ([id number]) [id number] EST. P ATIENT, LEVEL IV Diagnosis: Slow transit constipation[ICD10: K59.01] Diagnosis: Gastro-esophageal reflux disease without esophagitis[ICD10: K21.9] Diagnosis: Essential (primary) hypertension[ICD10: I10] Karmen Ash MD, [facility] CPT-4: 01864 01/21/2017 ([id number]) 37076 EST. P ATIENT, LEVEL IV Diagnosis: Type 2 diabetes mellitus with hyperglycemia[ICD10: E11.65] Diagnosis: Vitamin D deficiency, unspecified[ICD10: E55.9] Diagnosis: Essential (primary) hypertension[ICD10: I10] Diagnosis: Chronic obstructive pulmonary disease, unspecified[ICD10: J44.9] Karmen Ash MD, [facility] CPT-4: 06355 12/20/2016 ([id number]) 93552 EST. P ATIENT, LEVEL IV Diagnosis: Type 2 diabetes mellitus with hyperglycemia[ICD10: E11.65] Diagnosis: Essential (primary) hypertension[ICD10: I10] Diagnosis: Mixed hyperlipidemia[ICD10: E78.2] Diagnosis: Vitamin D deficiency, unspecified[ICD10: E55.9] Karmen Ash MD, [facility] CPT-4: 25192 08/23/2016 ([id number]) 09460 EST. P ATIENT, LEVEL IV Diagnosis: Type 2 diabetes mellitus with hyperglycemia[ICD10: E11.65] Diagnosis: Essential (primary) hypertension[ICD10: I10] Diagnosis: Chronic obstructive pulmonary disease, unspecified[ICD10: J44.9] Karmen Ash MD, [facility] CPT-4: 02529 05/22/2016 ([id number]) 71701 EST. P ATIENT, LEVEL III Diagnosis: Dysuria[ICD10: R30.0] Diagnosis: Essential (primary) hypertension[ICD10: I10] Karmen Ash MD, [facility] CPT-4: 07368 02/24/2016 ([id number]) 59455 EST. P ATIENT, LEVEL IV Diagnosis: Gastro-esophageal reflux disease without esophagitis[ICD10: K21.9] Diagnosis: Slow transit constipation[ICD10: K59.01] Diagnosis: Type 2 diabetes mellitus with hyperglycemia[ICD10: E11.65] Karmen Ash MD, [facility] CPT-4: 48651 01/27/2016 ([id number]) 98854 EST. P ATIENT, LEVEL IV Diagnosis: Essential (primary) hypertension[ICD10: I10] Diagnosis: Type 2 diabetes mellitus with hyperglycemia[ICD10: E11.65] Diagnosis: Vitamin D deficiency, unspecified[ICD10: E55.9] Diagnosis: Chronic obstructive pulmonary disease, unspecified[ICD10: J44.9] Diagnosis: Mixed hyperlipidemia[ICD10: E78.2] Diagnosis: Tobacco use[ICD10: Z72.0] Karmen Ash MD, [facility] CPT- 4: 50148 11/25/2015 ([id number]) 11253 EST. P ATIENT, LEVEL IV Diagnosis: Type 2 diabetes mellitus with hyperglycemia[ICD10: E11.65] Diagnosis: Essential (primary) hypertension[ICD10: I10] Diagnosis: Vitamin D deficiency, unspecified[ICD10: E55.9] Karmen Ash MD, [facility] CPT-4: 64850 07/28/2015 ([id number]) 15619 EST. P ATIENT, LEVEL III Diagnosis: Type 2 diabetes mellitus with hyperglycemia[ICD10: E11.65] Diagnosis: Essential (primary) hypertension[ICD10: I10] Violeta Ash MD, [facility] CPT-4: 51779 05/26/2015 ([id number]) 66078 EST. P ATIENT, LEVEL III Diagnosis: DIABETES TYPE II[ICD9: 250.00] Diagnosis: COPD (chronic obstructive pulmonary disease)[ICD9: 496] Diagnosis: ESSENTIAL HYPERTENSION[ICD9: 401.9] Diagnosis: Cough[ICD9: 786.2] Violeta Ash MD, [facility] CPT-4: 90761 05/06/2015 ([id number]) 31750 EST. P ATIENT, LEVEL III Diagnosis: COPD (chronic obstructive pulmonary disease)[ICD9: 496] Diagnosis: DIABETES TYPE II[ICD9: 250.00] Diagnosis: Muscle ache[ICD9: 729.1] Karmen Ash MD, [facility] CPT- 4: 92232 04/25/2015 ([id number]) 30728 EST. P ATIENT, LEVEL III Diagnosis: ACTINIC KERATOSIS[ICD9: 702.0] Diagnosis: COPD (chronic obstructive pulmonary disease)[ICD9: 496] Diagnosis: DIABETES TYPE II[ICD9: 250.00] Diagnosis: ACUTE URI[ICD9: 465.9] Violeta Ash MD, [facility] CPT-4: 58425 04/12/2015 ([id number]) 94895 EST. P ATIENT, LEVEL III Diagnosis: DIABETES TYPE II[ICD9: 250.00] Violeta Ash MD, [facility] CPT-4: 72805 03/24/2015 ([id number]) 08733 EST. P ATIENT, LEVEL IV Diagnosis: DIABETES TYPE II[ICD9: 250.00] Diagnosis: Hypoglycemia[ICD9: 251.2] Diagnosis: Skin texture changes[ICD9: 782.8] Violeta Ash MD, [facility] CPT-4: 17981 03/07/2015 ([id number]) 05224 EST. P ATIENT, LEVEL IV Diagnosis: COPD (chronic obstructive pulmonary disease)[ICD9: 496] Diagnosis: Fatigue[ICD9: 780.79] Diagnosis: Insulin dependent diabetes mellitus[ICD9: 250.00] Diagnosis: Unsteady gait[ICD9: 781.2] Maame Ash MD, [facility] CPT-4: 89835 02/17/2015 ([id number]) 40357 EST. P ATIENT, LEVEL IV Diagnosis: BPPV (benign paroxysmal positional vertigo)[ICD9: 386.11] Diagnosis: Impacted cerumen[ICD9: 380.4] Diagnosis: ESSENTIAL HYPERTENSION[ICD9: 401.9] Diagnosis: Insulin dependent diabetes mellitus[ICD9: 250.00] Karmen Ash MD, [facility] CPT-4: 15692 12/23/2014 ([id number]) OFFICE VISI T, [facility] - LEVEL 4 Diagnosis: Insulin dependent diabetes mellitus[ICD9: 250.00] Diagnosis: BPPV (benign paroxysmal positional vertigo)[ICD9: 386.11] Diagnosis: COPD (chronic obstructive pulmonary disease)[ICD9: 496] Diagnosis: Tobacco abuse[ICD9: 305.1] Diagnosis: Osteoarthritis[ICD9: 715.90] [facility] CPT- 4: 09553 12/09/2014 Plan of Care Planned Activity Notes C odes Status Date Patient Education: Patient Medication Summary Completed 08/08/2018 [...] surrogate. 06/30/2018 App[facility]ment[facility] [phone] [phone] [facility] - Annual Wellness Visit 06/30/2018 [...] pain. 06/06/2018 Appointment: Karmen Espinal WPtel: [facility] [place] 2[phone] (15 min) Moderate 06/06/2018 Patient Education: [...] months 04/04/2018 Appointment: Karmen Espinal WPtel: [phone] [facility] [place] [address] (15 min) Moderate 04/04/2018 Patient Education: Patient Medication Summary Completed 04/04/2018 Care Plan: Cbc With Differential Pending 04/04/2018 Care Plan: Testosterone repeat in 2 months Pending 04/04/2018 Appointment: Karmen Espinal WPtel: [phone] [place] [address] [place] (15 min) Moderate 03/25/2018 Visit Plan: Low back pain -history of kidney stone-UA negative today -increase fluids and call if pain does not resolve or if any worse. 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 01/30/2018 Appointment: Karmen Espinal WPtel: [phone] [phone] (15 min) Moderate 01/30/2018 Patient Education: Patient Medication Summary Completed 01/30/2018 Appointment: Karmen Espinal WPtel: [phone] [phone] [place] (15 min) Moderate 01/28/2018 Appointment: Injection 01/17/2018 Patient Education: Patient Medication Summary Completed 01/17/2018 Visit Plan: Cellulitis - start oral antibiotics as directed, return to clinic as previously directed, call for acute change in symptoms, worsening redness, warmth, discharge. 01/14/2018 Appointment: Karmen Espinal WPtel: [facility] [place][note 2][address] [place] [phone] (10 min) Simple 01/14/2018 Patient Education: Patient [...] controlled. 01/13/2018 Appointment: Karmen Espinal WPtel: [facility] [place][note 2]4 [phone] (15 min) Moderate 01/13/2018 Patient Education: Patient Medication Summary Completed 01/13/2018 Referral: Hugo Villatoro HPtel:[phone] [place] [address] Patient's informed. Referral info ned monroy. Completed [...] change in blood pressure readings at home. Jmmxghjz-kmpjkr-pvexp to see Dr Villatoro Constipation-start linzess daily 11/19/2017 Appointment: Karmen Espinal WPtel: [facility] [place] 2[phone] [place] (30 min) Complex 11/19/2017 Patient Education: Patient Medication Summary Completed 11/19/2017 Care Plan: Referral Order bloating, nausea SNOMED-CT : [id number] Pending 11/19/2017 Visit Plan: Low back pain- [...] acute changes. 10/02/2017 Appointment: Brunilda Maravilla WPtel: [facility] [place]note 2][facility] [place] (15 min) Moderate 10/02/2017 Patient [...] less controlled. 07/23/2017 Appointment: Karmen Espinal WPtel: [address] [place], [place] [phone] (30 min) [facility] 07/23/2017 Patient Education: Patient Medication Summary [...] pack/year history 04/25/2017 Appointment: Karmen Espinal WPtel[facility] [phone] [phone] (30 min) Complex 04/25/2017 Patient [...] readings are starting to become less controlled. Uhyumk-dxtecvb-twyww labs 02/19/2017 Appointment: Karm[facility] Espinal [facility]Ptel[facility] [phone] [phone] (30 min) Complex 02/19/2017 Patient [...] month 01/21/2017 Appointment: [facility] Espinal [facility]Ptel[facility] [phone] [phone] (30 min) Complex 01/21/2017 Patient Education: Patient Medication Summary Completed 01/21/2017 Patient Education: Smoking and Tobacco Addiction Completed 01/21/2017 Patient Education: Hypertension Completed 01/21/2017 Care Plan: Referral Order SNOMED-CT : 905028236 Pending 01/21/2017 Visit Plan: Diabetes Mellitus - [...] changes. 12/20/2016 Appointment: Karmen Espinal WPtel: [phone] [phone] (30 min) Complex 12/20/2016 Patient Education: Patient Medication Summary Completed 12/20/2016 Patient Education: Smoking and Tobacco Addiction Completed 12/20/2016 Patient Education: Hypertension Completed 12/20/2016 Appointment: [facility] Espinal [facility]Ptel[facility] [phone] [phone] (30 min) Complex 09/06/2016 Visit Plan: Diabetes Mellitus - con troxenaed [...] level 08/23/2016 Appointment: [facility] Espinal [facility]Ptel[facility] [phone] [phone] (30 min) Complex 08/23/2016 Patient [...] changes. 05/22/2016 Appointment: [facility] Espinal [facility]Ptel[facility] [phone] [phone] (30 min) Complex 05/22/2016 Patient Education: Patient Medication Summary Completed 05/22/2016 Patient Education: Smoking and Tobacco Addiction Completed 05/22/2016 Care Plan: Cbc With Differential Ordered 05/22/2016 Care Plan: %Hba1C KIKI C : 30350-5 Ordered 05/22/2016 Care Plan: Tsh Ordered 05/22/2016 [...] update 02/24/2016 Appointment: [facility]arm[facility] Espinal [facility]Ptel[facility] [phone] [phone] (30 min) Complex 02/24/2016 Patient [...] regimen. 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 Etfupygo-pprztznw-YMYZ SIMVASTATIN X 2 WEEKS AND CALL WITH [...] Care Plan: COMPLETE CBC AUTOMATED LOINC : 49793-9 Ordered 03/24/2015 Visit Plan: Diabetes Mellitus - [...] for removal. 03/07/2015 Appointment: Violeta Ash WPtel: [address] [place] [phone] (15 min) Moderate 03/07/2015 Patient Education: Patient [...] Care Plan: COMPLETE CBC AUTOMATED LOINC : 87429-8 Ordered 12/23/2014 Visit Plan: BPPV - Benign [...] next appt 12/09/2014 Appointment: Karmen Espinal WPtel: [facility] [place]note 2][phone] [place] ([place] New Patient 12/09/2014 Patient Education: Patient Medication Summary Completed 12/09/2014 Patient Education: .Amazing charts Parox ysmal positional vertigo Completed 12/09/2014 Patient Education: Smoking and Tobacco Addiction Completed 12/09/2014 Referral: Hugo Villatoro HPtel:[phone] [facility] [place] Referral Appointment Requested Referral: Luis Donohue Referral Appointment Requested Instructions Comment decrease glipizide t o 5mg twice daily [...] referral to Dr. Donohue for removal. . COPD -recent pneum onia-symptoms have improved [...] readings are starting to become less controlled. Miralax 1 packet laron ry other day. [...] readings are starting to become less controlled. Ybvhmu-pdzkdwi-bjddn labs . Cerumen Impaction - The impacted cerumen [...] keeping patient stabilized during the removal process. CALL IF THE KENALOG SHOT DOES NOT [...] lesion today in the office-wound instructions provided CHECK UA TORADOL INCREASE PO FLUIDS STRETCHES AND MUSCLE RUB . Low back pain -history of kidney stone -UA negative today -increase fluids and call if pain does not resolve or if any worse. Symbicort 2 puffs tw ice daily . [...] injections monthly -repeat labs in [address] Villatoro f or evaluation [...] change in blood pressure readings at home. Zksdyuas-xstnyv-pnphs to see Dr Villatoro Constipation-start linzess daily . Esophageal Reflux - the patient has [...] snacks as discussed-follow up in 1 month KENALOG ANORO 1 INHALATION DAILY . COPD [...] POTENTIAL SIDE EFFECTS AND WORSENING OF SYMPTOMS. Wxiukpzc-sdluvrzr-ALYR SIMVASTATIN X 2 WEEKS AND CALL WITH [...] use-schedule low dose CT chest-60 pack/year history INCREASE LISINOPRIL TO 10MG TWICE DAILY RETURN [...] are starting to become less controlled. . Fatigue, Unsteady Gait, Dizziness- Check labs and Head CT. Pt encouraged to use walker. and pt verbalize understanding and state that they have one. Further plan pending labs and CT results. COPD, increased shortness of breath- Chest x-ray today. Pt encouraged to stop smoking. Insulin Dependent Diabetes- Check labs today.
--- OUTSIDE RECORDS SUMMARY | 2020-03-29 09:28 | XMS REPORT | CCD ---
Author Author Dick Espinal Organization Violeta Ash MD, [facility] Address [address] [place] [address] Phone Care Team Providers Care Medical Physicist Name Role Phone PP Unavailable CCM Unavailable Summary Purpose Interface Exchange Insurance Providers Payer name Policy type / Coverage type Covered green party ID Effective Begin Date Effective End Date WPS Medicare Part B Medicare Part B [id number] Unknown Unknown [employer] Medicar e Part B [id number] Unknown Unkn own Family history Father Diagnosis Age At Onset Cancer Unknown Mother Diagnosis Age At Onset Cancer Unknown Social History Social History Element Codes Description Effective Dates Marital status Unknown M arried 12/09/2014 Employment Unknown Retir ed 12/09/[address]: 23455634 Currently smokes tobacco 12/09/2014 Number of years using tobacco Unknown > 50 12/09/2014 Number of cigarettes/day Unknown 30 (Pack and a half) 12/09/[address]: 474828146 Never drinks alcohol 12/09/2014 Allergies, Adverse Reactions, [...] cypiona te 200 mg/mL intramuscular oil RxNorm: 7118106 1/2 Milliliter(s) IM 07/28/2018 07/28/2018 Inactive hydrocodone 5 mg-linh taminophen 325 mg tablet RxNorm: 893505 1 Tablet(s) PO Q6-8H as needed 07/21/2018 08/14/2018 Active testosterone cypiona te 200 mg/mL intramuscular oil RxNorm: 364980 Milliliter(s) IM 07/16/2018 07/16/2018 In active testosterone cypiona te 200 mg/mL intramuscular oil RxNorm: 580953 Milliliter(s) IM 07/02/2018 07/02/2018 In active Xanax 0.5 mg tablet RxNorm: 737738 1 Tablet(s) PO TID 06/27/2018 08/25/2018 Active testosterone cypiona te 200 mg/mL intramuscular oil RxNorm: 357816 Milliliter(s) IM 06/24/2018 06/24/2018 In active hydrocodone 5 mg-linh taminophen 325 mg tablet RxNorm: 440677 1 Tablet(s) PO Q6-8H as needed 06/23/2018 07/17/2018 Inactive testosterone cypiona te 200 mg/mL intramuscular oil RxNorm: 541258 Milliliter(s) IM 06/13/2018 06/13/2018 In active testosterone cypiona te 200 mg/mL intramuscular oil RxNorm: 827573 Milliliter(s) IM 06/05/2018 06/05/2018 In active testosterone cypiona te 200 mg/mL intramuscular oil RxNorm: 469706 1/2 Milliliter(s) IM weekly 05/30/2018 09/26/2018 Active testosterone cypiona te 200 mg/mL intramuscular oil RxNorm: 126705 Milliliter(s) IM 05/30/2018 05/30/2018 In active testosterone cypiona te 200 mg/mL intramuscular oil RxNorm: 641981 Milliliter(s) IM 05/22/2018 05/22/2018 In active hydrocodone 5 mg-linh taminophen 325 mg tablet RxNorm: 062458 1 Tablet(s) PO Q6-8H as needed 05/20/2018 06/13/2018 Inactive testosterone cypiona te 200 mg/mL intramuscular oil RxNorm: 863421 1/2 Milliliter(s) IM 05/12/2018 05/12/2018 Inactive testosterone cypiona te 200 mg/mL intramuscular oil RxNorm: 242970 Milliliter(s) IM 05/02/2018 05/02/2018 In active testosterone cypiona te 200 mg/mL intramuscular oil RxNorm: 319811 1/2 Milliliter(s) IM weekly 04/24/2018 05/29/2018 Inactive testosterone cypiona te 200 mg/mL intramuscular oil RxNorm: 336949 0.5 Milliliter(s) IM 04/24/2018 04/24/2018 Inactive hydrocodone 5 mg-linh taminophen 325 mg tablet RxNorm: 520663 1 Tablet(s) PO Q6-8H as needed 04/22/2018 05/16/2018 Inactive testosterone cypiona te 200 mg/mL intramuscular oil RxNorm: 116063 1/2 Milliliter(s) IM 04/17/2018 04/17/2018 Inactive testosterone cypiona te 200 mg/mL intramuscular oil RxNorm: 226591 1/2 Milliliter(s) IM weekly 04/16/2018 04/23/2018 Inactive Jardiance 10 mg tablet RxNorm: 4689757 1 Tablet(s) PO daily 04/04/2018 12/29/2018 Active Protonix 40 mg table t,delayed release RxNorm: 076332 1 Tablet(s) PO daily TAKE 1 TABLET BY MOUTH DAILY 04/04/2018 03/29/2019 Active - Ref: [id number] testosterone cypiona te 200 mg/mL intramuscular oil RxNorm: 100651 1 Milliliter(s) IM monthly 04/04/2018 04/15/2018 Inactive hydrocodone 5 mg-linh taminophen 325 mg tablet RxNorm: 405754 1 Tablet(s) PO Q6-8H as needed 03/19/2018 04/12/2018 Inactive Flomax 0.4 mg capsule RxNorm: 637499 1 Capsule(s) PO daily 03/10/2018 03/04/2019 Active Urecholine 25 mg tablet RxNorm: 160984 1 Tablet(s) PO BID 03/10/2018 07/07/2018 Inactive ketorolac 60 mg/2 mL intramuscular solution RxNorm: 5657530 Milliliter(s) IM 03/07/2018 03/07/2018 In active metformin 500 mg tablet RxNorm: 593674 Tablet(s) TAKE 1 TABLET BY MOUTH DAILY 02/20/2018 02/14/2019 Ac tive 1 q am and 1/2 tab q pm hydrocodone 5 mg-linh taminophen 325 mg tablet RxNorm: 336882 1 Tablet(s) PO Q6-8H as needed 02/20/2018 03/16/2018 Inactive Kenalog 40 mg/mL bartolome pension for injection RxNorm: 2301694 1.5 Milliliter(s) In j 01/30/2018 01/30/2018 In active hydrocodone 5 mg-linh taminophen 325 mg tablet RxNorm: 736918 1 Tablet(s) PO Q6-8H as needed 01/23/2018 02/16/2018 Inactive Urecholine 25 mg tablet RxNorm: 253281 1 Tablet(s) PO BID 01/22/2018 03/09/2018 Inactive Flomax 0.4 mg capsule RxNorm: 036149 1 Capsule(s) PO daily 01/22/2018 03/09/2018 Inactive Flomax 0.4 mg capsule RxNorm: 094326 1 Capsule(s) PO daily 01/22/2018 01/21/2018 Inactive Urecholine 25 mg tablet RxNorm: 352305 1 Tablet(s) PO BID 01/22/2018 01/21/2018 Inactive testosterone cypiona te 200 mg/mL intramuscular oil RxNorm: 245715 Milliliter(s) IM 01/17/2018 01/17/2018 In active testosterone cypiona te 200 mg/mL intramuscular oil RxNorm: 209785 1 Milliliter(s) IM monthly 01/17/2018 04/03/2018 Inactive lisinopril 10 mg tablet RxNorm: 932569 TAKE 1 TABLET BY MOUTH TWO TIMES DAILY 01/14/2018 01/08/2019 Ac tive - First Attempt Ref: [id number] doxycycline hyclate 100 mg tablet RxNorm: 948554 1 Tablet(s) PO BID 01/14/2018 01/23/2018 Inactive Xanax 0.5 mg tablet RxNorm: 196493 1 Tablet(s) PO TID 01/08/2018 04/06/2018 Inactive nystatin 100,000 uni t/mL oral suspension RxNorm: 456702 4 Milliliter(s) PO QI D Swish and swallow 01/08/2018 01/07/2018 Inactive nystatin 100,000 uni t/mL oral suspension RxNorm: 778361 4 Milliliter(s) PO QI D Swish and swallow 01/08/2018 01/12/2018 Inactive simvastatin 40 mg ta blet RxNorm: 831042 TAKE 1 TABLET BY MOUT H DAILY AT BEDTIME 12/30/2017 12/24/2018 Ac tive - First Attempt Ref: [id number] metformin 500 mg tablet RxNorm: 067459 TAKE 1 TABLET BY MOUTH DAILY 12/30/2017 02/19/2018 Inactive - First Attempt Ref: [id number] hydrocodone 5 mg-linh taminophen 325 mg tablet RxNorm: 587271 1 Tablet(s) PO Q6-8H as needed 12/25/2017 01/18/2018 Inactive Protonix 40 mg table t,delayed release RxNorm: 578560 Tablet(s) TAKE 1 TABL ET BY MOUTH DAILY 11/20/2017 04/03/2018 Inactive - Ref: [id number] Linzess 72 mcg capsule RxNorm: 9596471 1 Capsule(s) PO daily 11/19/2017 No Stop Date Active hydrocodone 5 mg-linh taminophen 325 mg tablet RxNorm: 269645 1 Tablet(s) PO Q6-8H as needed 11/19/2017 12/13/2017 Inactive hydrocodone 5 mg-linh taminophen 325 mg tablet RxNorm: 646960 1 Tablet(s) PO Q6-8H as needed 10/28/2017 11/18/2017 Inactive Xanax 0.5 mg tablet RxNorm: 977774 1 Tablet(s) PO TID 10/25/2017 12/22/2017 Inactive Xanax 0.5 mg tablet RxNorm: 111342 TAKE ONE TABLET BY MOUTH THREE TIMES A D AY 10/24/2017 12/22/2017 In active hydrocodone 5 mg-linh taminophen 325 mg tablet RxNorm: 683793 1 Tablet(s) PO Q6-8H as needed 09/30/2017 10/24/2017 Inactive Protonix 40 mg table t,delayed release RxNorm: 617876 TAKE 1 TABLET BY MOUT H DAILY 09/16/2017 11/19/2017 In active - Ref: [id number] Bertuanuj SoloStar 300 unit/mL (1.5 mL) subcutaneous insulin pen RxNorm: 7039487 35 Unit(s) SQ QHS 08/30/2017 No Stop Date Active dosage increase hydrocodone 5 mg-linh taminophen 325 mg tablet RxNorm: 345855 1 Tablet(s) PO Q6-8H as needed 08/28/2017 09/29/2017 Inactive hydrocodone 5 mg-ilnh taminophen 325 mg tablet RxNorm: 656858 1 Tablet(s) PO Q6-8H as needed 07/23/2017 08/24/2017 Inactive lisinopril 10 mg tablet RxNorm: 447301 1 Tablet(s) PO BID Take 1 tablet by mout h daily 07/23/2017 01/13/2018 Inactive hydrocodone 5 mg-linh taminophen 325 mg tablet RxNorm: 308184 1 Tablet(s) PO Q6-8H as needed 06/27/2017 07/22/2017 Inactive Xanax 0.5 mg tablet RxNorm: 618525 1 Tablet(s) PO TID 06/18/2017 10/25/2017 Inactive hydrocodone 5 mg-linh taminophen 325 mg tablet RxNorm: 431249 1 Tablet(s) PO Q6-8H as needed 05/27/2017 06/26/2017 Inactive Levaquin 500 mg tablet RxNorm: 717278 1 Tablet(s) PO daily 05/24/2017 05/23/2017 Inactive Levaquin 500 mg tablet RxNorm: 057682 1 Tablet(s) PO daily 05/24/2017 05/30/2017 Inactive Protonix 40 mg table t,delayed release RxNorm: 546024 Take 1 tablet by mout h daily 04/29/2017 09/15/2017 In active - Ref: [id number] hydrocodone 5 mg-linh taminophen 325 mg tablet RxNorm: 540916 1 Tablet(s) PO Q6-8H as needed 04/25/2017 05/26/2017 Inactive metformin 500 mg tablet RxNorm: 638190 Take 1 tablet by mouth daily 04/08/2017 12/29/2017 Inactive - First Attempt Ref: [id number] hydrocodone 5 mg-linh taminophen 325 mg tablet RxNorm: 238761 1 Tablet(s) PO Q6-8H as needed 03/27/2017 04/24/2017 Inactive hydrocodone 5 mg-linh taminophen 325 mg tablet RxNorm: 495450 1 Tablet(s) PO Q6-8H as needed 02/25/2017 03/26/2017 Inactive Protonix 40 mg table t,delayed release RxNorm: 477975 Tablet(s) Take 1 tabl et by mouth BID 02/25/2017 04/28/2017 Inactive Protonix 40 mg table t,delayed release RxNorm: 199140 Tablet(s) Take 1 tabl et by mouth BID 02/19/2017 02/18/2017 Inactive Protonix 40 mg table t,delayed release RxNorm: 715153 Tablet(s) Take 1 tabl et by mouth BID 02/19/2017 02/24/2017 Inactive lisinopril 10 mg tablet RxNorm: 568479 Take 1 tablet by mouth daily 01/29/2017 07/22/2017 Inactive - First Attempt Ref: [id number] hydrocodone 5 mg-linh taminophen 325 mg tablet RxNorm: 287268 1 Tablet(s) PO Q6-8H as needed 01/25/2017 02/24/2017 Inactive simvastatin 40 mg ta blet RxNorm: 407911 Tablet(s) Take 1 tabl et by mouth daily at bedtime 01/03/2017 12/28/2017 Inactive lisinopril 10 mg tablet RxNorm: 313123 Tablet(s) Take 1 tablet by mouth daily 01/03/2017 01/28/2017 In active Protonix 40 mg table t,delayed release RxNorm: 310782 Tablet(s) Take 1 tabl et by mouth daily 12/28/2016 02/18/2017 Inactive hydrocodone 5 mg-linh taminophen 325 mg tablet RxNorm: 441634 1 Tablet(s) PO Q6-8H as needed 12/26/2016 01/24/2017 Inactive Xanax 0.5 mg tablet RxNorm: 476244 1 Tablet(s) PO TID 12/12/2016 03/11/2017 Inactive simvastatin 40 mg ta blet RxNorm: 880293 Tablet(s) Take 1 tabl et by mouth daily at bedtime 11/30/2016 01/02/2017 Inactive simvastatin 40 mg ta blet RxNorm: 211502 Take 1 tablet by mout h daily at bedtime 11/29/2016 11/29/2016 In active - First Attempt Ref: [id number] Protonix 40 mg table t,delayed release RxNorm: 867591 Take 1 tablet by mout h daily 11/27/2016 12/27/2016 In active - First Attempt Ref: [id number] hydrocodone 5 mg-linh taminophen 325 mg tablet RxNorm: 278940 1 Tablet(s) PO Q6-8H as needed 11/26/2016 12/25/2016 Inactive hydrocodone 5 mg-linh taminophen 325 mg tablet RxNorm: 509094 1 Tablet(s) PO Q8 as needed 10/24/2016 11/25/2016 Inactive Xanax 0.5 mg tablet RxNorm: 161886 1 Tablet(s) PO TID 10/09/2016 12/25/2016 Inactive hydrocodone 5 mg-linh taminophen 325 mg tablet RxNorm: 627524 1 Tablet(s) PO Q8 as needed 09/27/2016 10/23/2016 Inactive lisinopril 10 mg tablet RxNorm: 819746 Take 1 tablet by mouth daily 09/25/2016 01/02/2017 Inactive - First Attempt Ref: [id number] Vitamin D2 50,000 un it capsule RxNorm: 545989 1 Capsule(s) PO QW 09/06/2016 No Stop Date Active hydrocodone 5 mg-linh taminophen 325 mg tablet RxNorm: 061575 1 Tablet(s) PO Q8 as needed 08/28/2016 09/26/2016 Inactive Toujeo SoloStar 300 unit/mL (1.5 mL) subcutaneous insulin pen RxNorm: 9398763 25 Unit(s) SQ QHS 08/23/2016 08/29/2017 Inactive dosage increase hydrocodone 5 mg-linh taminophen 325 mg tablet RxNorm: 304033 1 Tablet(s) PO Q8 as needed 07/26/2016 08/27/2016 Inactive Protonix 40 mg table t,delayed release RxNorm: 320580 Take 1 tablet by mout h daily 07/24/2016 11/26/2016 In active - First Attempt Ref: [id number] hydrocodone 5 mg-linh taminophen 325 mg tablet RxNorm: 340544 1 Tablet(s) PO Q8 as needed 06/19/2016 07/21/2016 Inactive Toujeo SoloStar 300 unit/mL (1.5 mL) subcutaneous insulin pen RxNorm: 4823080 32 Unit(s) SQ QHS 05/30/2016 08/22/2016 Inactive dosage increase hydrocodone 5 mg-linh taminophen 325 mg tablet RxNorm: 867768 1 Tablet(s) PO Q8 as needed 05/22/2016 06/18/2016 Inactive hydrocodone 5 mg-linh taminophen 325 mg tablet RxNorm: 181788 1 Tablet(s) PO Q8 as needed 04/18/2016 05/17/2016 Inactive Protonix 40 mg table t,delayed release RxNorm: 805240 Take 1 tablet by mout h daily 04/05/2016 07/03/2016 In active - Ref: [id number] metformin 500 mg tablet RxNorm: 739103 Take 1 tablet by mouth daily 04/04/2016 07/02/2016 Inactive - Ref: [id number] Xanax 0.5 mg tablet RxNorm: 792808 1 Tablet(s) PO TID 03/30/2016 09/25/2016 Inactive Xanax 0.5 mg tablet RxNorm: 987776 1 Tablet(s) PO TID 03/23/2016 12/25/2016 Inactive hydrocodone 5 mg-linh taminophen 325 mg tablet RxNorm: 034470 1 Tablet(s) PO Q8 as needed 03/06/2016 04/04/2016 Inactive Cipro 500 mg tablet RxNorm: 185181 1 Tablet(s) PO BID 02/24/2016 03/04/2016 Inactive Miralax 17 gram oral powder packet RxNorm: 646744 1 packet PO every oth er day 01/27/2016 No Stop Date Active hydrocodone 5 mg-linh taminophen 325 mg tablet RxNorm: 110433 1 Tablet(s) PO Q8 as needed 01/27/2016 02/25/2016 Inactive lisinopril 10 mg tablet RxNorm: 777624 1 Tablet(s) PO daily 01/12/2016 09/24/2016 Inactive simvastatin 40 mg ta blet RxNorm: 644351 1 Tablet(s) PO QHS 01/12/2016 11/28/2016 Inactive simvastatin 40 mg ta blet RxNorm: 212171 1 Tablet(s) PO QHS 01/11/2016 01/11/2016 Inactive lisinopril 10 mg tablet RxNorm: 484842 1 Tablet(s) PO daily 01/06/2016 01/11/2016 Inactive simvastatin 40 mg ta blet RxNorm: 896964 1 Tablet(s) PO daily 12/28/2015 01/10/2016 Inactive hydrocodone 5 mg-linh taminophen 325 mg tablet RxNorm: 141801 1 Tablet(s) PO Q8 as needed 12/27/2015 01/26/2016 Inactive Xanax 0.5 mg tablet RxNorm: 480554 1 Tablet(s) PO TID 11/30/2015 03/29/2016 Inactive meclizine 25 mg tablet RxNorm: 077054 1 Tablet(s) PO Q6 PRN TAKE ONE TABLET BY MOUTH EVERY 6 HOURS NEEDED 11/25/2015 02/22/2016 Inactive Toujeo SoloStar 300 unit/mL (1.5 mL) subcutaneous insulin pen RxNorm: 1323552 30 Unit(s) SQ QHS 11/25/2015 05/29/2016 Inactive dosage increase omeprazole 20 mg cap jacquelyn,delayed release RxNorm: 911504 1 Capsule(s) PO daily 10/06/2015 01/26/2016 In active Toujeo SoloStar 300 unit/mL (1.5 mL) subcutaneous insulin pen RxNorm: 9095545 35 Unit(s) SQ QHS 08/02/2015 11/24/2015 Inactive dosage increase Vitamin D2 50,000 un it capsule RxNorm: 508494 1 Capsule(s) PO QW 08/02/2015 09/05/2016 Inactive hydrocodone 5 mg-linh taminophen 325 mg tablet RxNorm: 372414 1 Tablet(s) PO Q8 as needed 07/11/2015 12/26/2015 Inactive Xanax 0.5 mg tablet RxNorm: 940326 1 Tablet(s) PO TID 06/30/2015 06/29/2015 Inactive Xanax 0.5 mg tablet RxNorm: 494322 1 Tablet(s) PO TID 06/30/2015 12/25/2015 Inactive hydrocodone 5 mg-linh taminophen 325 mg tablet RxNorm: 844886 1 Tablet(s) PO Q8 as needed 05/06/2015 07/10/2015 Inactive Symbicort 160 mcg-4. 5 mcg/actuation HFA aerosol inhaler RxNorm: 2880510 INH 04/25/2015 No Stop Date Active Levemir FlexTouch 10 0 unit/mL (3 mL) subcutaneous insulin pen RxNorm: 647939 30 Unit(s) SQ QHS 04/25/2015 11/24/2015 Inactive prednisone 20 mg tablet RxNorm: 809255 1 Tablet(s) PO BID 04/25/2015 04/29/2015 Inactive metformin 500 mg tablet RxNorm: 638937 1 Tablet(s) PO daily 04/25/2015 04/03/2016 Inactive amoxicillin 500 mg c apsule RxNorm: 311152 1 Capsule(s) PO TID 04/14/2015 04/13/2015 Inactive amoxicillin 500 mg c apsule RxNorm: 774632 1 Capsule(s) PO TID a nd recommend probiotic tid (otc) 04/14/2015 04/20/2015 Inactive Kenalog 40 mg/mL bartolome pension for injection RxNorm: 9926099 Milliliter(s) Inj 04/12/2015 04/12/2015 In active hydrocodone 5 mg-linh taminophen 325 mg tablet RxNorm: 200286 1 Tablet(s) PO Q8 as needed 03/30/2015 05/05/2015 Inactive Lantus 100 unit/mL s ubcutaneous solution RxNorm: 722034 25 Unit(s) SQ QPM 03/24/2015 04/25/2015 In active meclizine 25 mg tablet RxNorm: 301829 Tablet(s) TAKE ONE TABLET BY MOUTH EVERY 6 HOURS NEEDED 03/08/2015 04/06/2015 Inactive meclizine 25 mg tablet RxNorm: 720539 TAKE ONE TABLET BY MOUTH EVERY 6 HOURS A S NEEDED 02/25/2015 03/03/2015 Inactive Lantus 100 unit/mL s ubcutaneous solution RxNorm: 087294 20 Unit(s) SQ QPM 02/23/2015 03/23/2015 In active Lantus 100 unit/mL s ubcutaneous solution RxNorm: 218171 25 Unit(s) SQ QPM 02/23/2015 02/22/2015 In active hydrocodone 5 mg-linh taminophen 325 mg tablet RxNorm: 205144 1 Tablet(s) PO Q8 as needed 02/17/2015 03/29/2015 Inactive Xanax 0.5 mg tablet RxNorm: 884020 1 Tablet(s) PO TID 02/03/2015 06/29/2015 Inactive Lantus 100 unit/mL s ubcutaneous solution RxNorm: 288013 20 Unit(s) SQ QPM 12/29/2014 02/22/2015 In active Phenergan 12.5 mg re ctal suppository RxNorm: 154707 1 Suppository RTL Q6 PRN 12/23/2014 No Stop Date Active nausea Kenalog 40 mg/mL bartolome pension for injection RxNorm: 5534117 Milliliter(s) Inj 12/23/2014 12/23/2014 In active prednisone 20 mg tablet RxNorm: 496366 2 Tablet(s) PO daily 12/13/2014 12/17/2014 Inactive prednisone 20 mg tablet RxNorm: 237081 2 Tablet(s) PO daily 12/13/2014 12/12/2014 Inactive meclizine 25 mg tablet RxNorm: 688273 1 Tablet(s) PO Q6 PRN 12/09/2014 02/24/2015 Inactive hydrocodone 5 mg-linh taminophen 325 mg tablet RxNorm: 423482 1 Tablet(s) PO Q8 as needed 12/09/2014 02/16/2015 Inactive Vitamin B-12 1,000 m cg/mL oral drops RxNorm: 1154915 1 Milliliter(s) PO d aily No Start Date Active Alphagan P 0.1 % eye drops RxNorm: 662597 1 Drop(s) OPH BID No Start Date Active aspirin 325 mg table t,delayed release RxNorm: 839127 1 Tablet(s) PO daily No Start Date Active Tricor 145 mg tablet RxNorm: 662735 1 Tablet(s) PO daily No Start Date Active vitamin P65-gkycacy B1 oral liquid RxNorm: 1,000 Microgram(s) PO daily No Start Date Active atenolol 50 mg tablet RxNorm: 040464 1 Tablet(s) PO daily No Start Date Active Protonix 40 mg table t,delayed release RxNorm: 524172 1 Tablet(s) PO daily No Start Date 04/04/2016 Inactive glipizide 10 mg tablet RxNorm: 017107 1 Tablet(s) PO BID No Start Date 03/22/2015 Inactive Lantus 100 unit/mL s ubcutaneous solution RxNorm: 262300 15 Unit(s) SQ QPM No Start Date 12/28/2014 Inactive lisinopril 10 mg tablet RxNorm: 075339 1 Tablet(s) PO daily No Start Date 01/05/2016 Inactive Vitamin D2 50,000 un it capsule RxNorm: 050108 1 Capsule(s) PO QW No Start Date 08/01/2015 Inactive Touanuj SoloStar 300 unit/mL (1.5 mL) subcutaneous insulin pen RxNorm: 4298909 30 Unit(s) SQ QHS No Start Date 08/01/2015 Inactive simvastatin 40 mg ta blet RxNorm: 648524 1 Tablet(s) PO daily No Start Date 12/27/2015 Inactive testosterone cypiona te 200 mg/mL intramuscular oil RxNorm: 856421 1 Milliliter(s) IM monthly No Start Date 01/16/2018 Inactive hydrocodone 5 mg-linh taminophen 325 mg tablet RxNorm: 195689 1 Tablet(s) PO Q8 as needed No Start Date 12/08/2014 Inactive metformin 500 mg tablet RxNorm: 382906 1 Tablet(s) PO daily No Start Date 04/24/2015 Inactive omeprazole 20 mg cap jacquelyn,delayed release RxNorm: 513078 1 Capsule(s) PO daily No Start Date 10/05/2015 Inactive Flomax 0.4 mg capsule RxNorm: 999470 1 Capsule(s) PO daily No Start Date 03/23/2015 Inactive Medication Administered Medication Codes Instruc tions Start Date Status testosterone cypionate 200 mg/mL intramuscular oil RxNorm: 6603262 /2Milliliter 07/28/2018 Active testosterone cypionate 200 mg/mL intramuscular oil RxNorm: 499626 Milliliter 07/16/2018 No longer Active testosterone cypionate 200 mg/mL intramuscular oil RxNorm: 204797 Milliliter 07/02/2018 No longer Active testosterone cypionate 200 mg/mL intramuscular oil RxNorm: 693802 Milliliter 06/24/2018 No longer Active testosterone cypionate 200 mg/mL intramuscular oil RxNorm: 614917 Milliliter 06/13/2018 No longer Active testosterone cypionate 200 mg/mL intramuscular oil RxNorm: 873334 Milliliter 06/05/2018 No longer Active testosterone cypionate 200 mg/mL intramuscular oil RxNorm: 242452 Milliliter 05/30/2018 No longer Active testosterone cypionate 200 mg/mL intramuscular oil RxNorm: 161173 Milliliter 05/22/2018 No longer Active testosterone cypionate 200 mg/mL intramuscular oil RxNorm: 837258 /2Milliliter 05/12/2018 No longer Active testosterone cypionate 200 mg/mL intramuscular oil RxNorm: 864264 Milliliter 05/02/2018 No longer Active testosterone cypionate 200 mg/mL intramuscular oil RxNorm: 285843 0.5Milliliter 04/24/2018 No longer Active testosterone cypionate 200 mg/mL intramuscular oil RxNorm: 668334 1/2Milliliter 04/17/2018 No longer Active ketorolac 60 mg/2 mL intramuscular solution RxNorm: 4597821 Milliliter 03/07/2018 No longer Active Kenalog 40 mg/mL suspension for injection RxNorm: 2473431 1.5Milliliter 01/30/2018 No longer Active testosterone cypionate 200 mg/mL intramuscular oil RxNorm: 349037 Milliliter 01/17/2018 No longer Active Kenalog 40 mg/mL suspension for injection RxNorm: 7730320 Milliliter 04/12/2015 No longer Active Kenalog 40 mg/mL suspension for injection RxNorm: 9783124 Milliliter 12/23/2014 No longer Active Immunizations Vaccine Codes Date Status Influenza CVX: 141 06/06 completed Influenza CVX: 141 04/25 completed Pneumococcal (Adult) CVX: 133 04/25/2017 completed Influenza CVX: 141 05/22 completed Assessments Condition Codes Effectiv e Dates Testicular dysfunction, unspecified ICD-10: E29.9 ICD-9: 257.9 07/28/2018 Encounter for general adult medical exam ination [...] Item Item Code Result Date Comp Metabolic Ozs389 NA 139 mEq/L 04/01/2018 Comp Metabolic Ugz010 K 4.2 mEq/L 04/01/2018 Comp Metabolic Unr242 CL 102 mEq/L 04/01/2018 Comp Metabolic Cxj000 CO2 29.0 mEq/L 04/01/2018 Comp Metabolic Nni250 AN ION GAP 12 04/01/2018 Comp Metabolic Skh235 GL UCOSE 87 mg/dL 04/01/2018 Comp Metabolic Jdb763 Cr eat 1.1 mg/dL 04/01/2018 Comp Metabolic Phz346 eG FR 70 ml/min/1.73m2 04/01 Comp Metabolic Vmm385 BUN 21 mg/dL 04/01/2018 Comp Metabolic Hrv914 B/ C Ratio 19.4 Ratio 04/01/2018 Comp Metabolic Iud576 CA LCIUM 9.1 mg/dL 04/01/2018 Comp Metabolic Zhe789 AL K PHOS 60 U/L 04/01/2018 Comp Metabolic Hcq757 T(SGOT) 15 U/L 04/01/2018 Comp Metabolic Nhe404 AL T(SGPT) 18 U/L 04/01/2018 Comp Metabolic Mre426 BI LI T 0.4 mg/dL 04/01/2018 Comp Metabolic Ihp967 AL BUMIN 4.0 g/dL 04/01/2018 Comp Metabolic Mnv371 TP RO 6.5 g/dL 04/01/2018 Comp Metabolic Ijw821 GL OB 2.5 g/dL 04/01/2018 Comp Metabolic Zen661 A/ G Ratio 1.6 Ratio 04/01/2018 Comp Metabolic Kou191 Os mo 280 mOsmo 04/01/2018 Lipid Ord30 [...] 101.6 fl 04/01/2018 Cbc With Differential Ord2 Gaines% 6.0 % 04/01/2018 Cbc With Differential Ord2 [...] 3.25 K/ul 04/01/2018 Cbc With Differential Ord2 Gaines ABS# 0.6 K/ul 04/01/2018 Cbc With Differential Ord2 Eos ABS# 0.4 K/ul 04/01/2018 Cbc With Differential Ord2 Baso ABS# 0.0 K/ul 04/01/2018 %Hba1C Xnz739 % HbA1c 38922-9 8.0 % 04/01/2018 %Hba1C Zou934 Gluc Ave 183 mg/dL 04/01/2018 Testosterone Hfu273 Testo 111.3 ng/dL 04/01/2018 Testosterone Vqg577 Testo 135.4 ng/dL 01/14/2018 Cbc With Differential [...] 36.0 pg 01/14/2018 Cbc With Differential Ord2 Gaines% 6.8 % 01/14/2018 Cbc With Differential Ord2 [...] 2.71 K/ul 01/14/2018 Cbc With Differential Ord2 Gaines ABS# 0.8 K/ul 01/14/2018 Cbc With Differential Ord2 Eos ABS# 0.2 K/ul 01/14/2018 Cbc With Differential Ord2 Baso ABS# 0.0 K/ul 01/14/2018 Comp Metabolic Ezq643 NA 134 mEq/L 11/20/2017 Comp Metabolic Ylj365 K 4.4 mEq/L 11/20/2017 Comp Metabolic Blp565 CL 99 mEq/L 11/20/2017 Comp Metabolic Gbl181 CO2 29.0 mEq/L 11/20/2017 Comp Metabolic Jus397 AN ION GAP 10 11/20/2017 Comp Metabolic Nwu301 GL UCOSE 218 mg/dL 11/20/2017 Comp Metabolic Erb728 Cr eat 1.0 mg/dL 11/20/2017 Comp Metabolic Eeo628 eG FR 78 ml/min/1.73m2 11/20 Comp Metabolic Yhu410 BUN 13 mg/dL 11/20/2017 Comp Metabolic Dbw268 B/ C Ratio 13.3 Ratio 11/20/2017 Comp Metabolic Omw133 CA LCIUM 9.0 mg/dL 11/20/2017 Comp Metabolic Vdc495 AL K PHOS 71 U/L 11/20/2017 Comp Metabolic Kut416 T(SGOT) 18 U/L 11/20/2017 Comp Metabolic Uug007 AL T(SGPT) 17 U/L 11/20/2017 Comp Metabolic Dvu754 BI LI T 0.4 mg/dL 11/20/2017 Comp Metabolic Ywz317 AL BUMIN 4.1 g/dL 11/20/2017 Comp Metabolic Qyf718 TP RO 6.5 g/dL 11/20/2017 Comp Metabolic Fxl531 GL OB 2.4 g/dL 11/20/2017 Comp Metabolic Wqo048 A/ G Ratio 1.8 Ratio 11/20/2017 Comp Metabolic Vvu401 Os mo 275 mOsmo 11/20/2017 Cbc With [...] 35.2 pg 11/20/2017 Cbc With Differential Ord2 Gaines% 7.2 % 11/20/2017 Cbc With Differential Ord2 [...] 3.34 K/ul 11/20/2017 Cbc With Differential Ord2 Gaines ABS# 0.6 K/ul 11/20/2017 Cbc With Differential Ord2 Eos ABS# 0.3 K/ul 11/20/2017 Cbc With Differential Ord2 Baso ABS# 0.0 K/ul 11/20/2017 Vitamin D 25 Oh Bss4737 VITAMIN D, 25 HYDROXY 43.72 ng/mL 11/20/2017 %Hba1C Own808 % HbA1c 46046-3 7.4 % 11/20/2017 %Hba1C Umr347 Gluc Ave 166 mg/dL 11/20/2017 %Hba1C Jst389 % HbA1c 00438-4 7.2 % 08/20/2017 %Hba1C Rgz025 Gluc Ave 160 mg/dL 08/20/2017 Lipid Ord30 [...] 34.7 pg 08/20/2017 Cbc With Differential Ord2 Gaines% 7.6 % 08/20/2017 Cbc With Differential Ord2 [...] 2.42 K/ul 08/20/2017 Cbc With Differential Ord2 Gaines ABS# 0.6 K/ul 08/20/2017 Cbc With Differential Ord2 Eos ABS# 0.3 K/ul 08/20/2017 Cbc With Differential Ord2 Baso ABS# 0.0 K/ul 08/20/2017 Tsh Ord6 hTSH II 2.27 uIU/mL 08/20/2017 Comp Metabolic Qgg727 NA 138 mEq/L 08/20/2017 Comp Metabolic Gyj267 K 4.3 mEq/L 08/20/2017 Comp Metabolic Lvm860 CL 102 mEq/L 08/20/2017 Comp Metabolic Qmd132 CO2 29.0 mEq/L 08/20/2017 Comp Metabolic Xej980 AN ION GAP 11 08/20/2017 Comp Metabolic Jmw142 GL UCOSE 89 mg/dL 08/20/2017 Comp Metabolic Lei695 Cr eat 1.0 mg/dL 08/20/2017 Comp Metabolic Ypd007 eG FR 80 ml/min/1.73m2 08/20 Comp Metabolic Pde706 BUN 13 mg/dL 08/20/2017 Comp Metabolic Rnx504 B/ C Ratio 13.5 Ratio 08/20/2017 Comp Metabolic Ujz413 CA LCIUM 9.2 mg/dL 08/20/2017 Comp Metabolic Zew591 AL K PHOS 69 U/L 08/20/2017 Comp Metabolic Ifg957 T(SGOT) 18 U/L 08/20/2017 Comp Metabolic Kzp386 AL T(SGPT) 19 U/L 08/20/2017 Comp Metabolic Zvc079 BI LI T 0.6 mg/dL 08/20/2017 Comp Metabolic Lrx216 AL BUMIN 4.0 g/dL 08/20/2017 Comp Metabolic Sgy659 TP RO 6.6 g/dL 08/20/2017 Comp Metabolic Sum423 GL OB 2.6 g/dL 08/20/2017 Comp Metabolic Vmm421 A/ G Ratio 1.5 Ratio 08/20/2017 Comp Metabolic Pby457 Os mo 275 mOsmo 08/20/2017 Vitamin D 25 Oh Oev3339 VITAMIN D, 25 HYDROXY 30.96 ng/mL 08/20/2017 B12 Dly178 B12 >1500.00 pg/ml 02/22/2017 Cbc With Differential [...] 35.7 pg 02/20/2017 Cbc With Differential Ord2 Gaines% 6.3 % 02/20/2017 Cbc With Differential Ord2 [...] 3.19 K/ul 02/20/2017 Cbc With Differential Ord2 Gaines ABS# 0.5 K/ul 02/20/2017 Cbc With Differential Ord2 Eos ABS# 0.4 K/ul 02/20/2017 Cbc With Differential Ord2 Baso ABS# 0.0 K/ul 02/20/2017 Comp Metabolic Ywr876 NA 138 mEq/L 02/20/2017 Comp Metabolic Xvj077 K 4.5 mEq/L 02/20/2017 Comp Metabolic Vqi329 CL 101 mEq/L 02/20/2017 Comp Metabolic Dxm493 CO2 31.0 mEq/L 02/20/2017 Comp Metabolic Oxz994 AN ION GAP 11 02/20/2017 Comp Metabolic Brm910 GL UCOSE 120 mg/dL 02/20/2017 Comp Metabolic Hdb547 Cr eat 0.9 mg/dL 02/20/2017 Comp Metabolic Xxh696 eG FR 83 ml/min/1.73m2 02/20 Comp Metabolic Asr657 BUN 15 mg/dL 02/20/2017 Comp Metabolic Mhp240 B/ C Ratio 16.1 Ratio 02/20/2017 Comp Metabolic Nqi562 CA LCIUM 9.1 mg/dL 02/20/2017 Comp Metabolic Bof945 AL K PHOS 67 U/L 02/20/2017 Comp Metabolic Sll633 T(SGOT) 15 U/L 02/20/2017 Comp Metabolic Cnq365 AL T(SGPT) 16 U/L 02/20/2017 Comp Metabolic Vkk174 BI LI T 0.5 mg/dL 02/20/2017 Comp Metabolic Zkg001 AL BUMIN 4.0 g/dL 02/20/2017 Comp Metabolic Gcw567 TP RO 6.4 g/dL 02/20/2017 Comp Metabolic Fua015 GL OB 2.4 g/dL 02/20/2017 Comp Metabolic Vmk009 A/ G Ratio 1.7 Ratio 02/20/2017 Comp Metabolic Qbp175 Os mo 278 mOsmo 02/20/2017 Tsh Ord6 hTSH II 2.05 uIU/mL 02/20/2017 %Hba1C Fqr116 % HbA1c 49514-6 7.6 % 02/20/2017 %Hba1C Naa086 Gluc Ave 171 mg/dL 02/20/2017 Vitamin D 25 Oh Cuj5458 VITAMIN D, 25 HYDROXY 44.40 ng/mL 12/21/2016 Comp Metabolic Sej744 NA 131 mEq/L 12/21/2016 Comp Metabolic Dod407 K 4.2 mEq/L 12/21/2016 Comp Metabolic Hno531 CL 97 mEq/L 12/21/2016 Comp Metabolic Ofn542 CO2 27.0 mEq/L 12/21/2016 Comp Metabolic Jpl205 AN ION GAP 11 12/21/2016 Comp Metabolic Wnn982 GL UCOSE 266 mg/dL 12/21/2016 Comp Metabolic Oep976 Cr eat 0.9 mg/dL 12/21/2016 Comp Metabolic Rft498 eG FR 88 ml/min/1.73m2 12/21 Comp Metabolic Yuo202 BUN 12 mg/dL 12/21/2016 Comp Metabolic Pqx053 B/ C Ratio 13.6 Ratio 12/21/2016 Comp Metabolic Dxr891 CA LCIUM 8.6 mg/dL 12/21/2016 Comp Metabolic Qte795 AL K PHOS 69 U/L 12/21/2016 Comp Metabolic Mpy741 T(SGOT) 15 U/L 12/21/2016 Comp Metabolic Npo828 AL T(SGPT) 14 U/L 12/21/2016 Comp Metabolic Cxh033 BI LI T 0.3 mg/dL 12/21/2016 Comp Metabolic Kub172 AL BUMIN 3.7 g/dL 12/21/2016 Comp Metabolic Gse621 TP RO 5.9 g/dL 12/21/2016 Comp Metabolic Rxj036 GL OB 2.2 g/dL 12/21/2016 Comp Metabolic Zps527 A/ G Ratio 1.7 Ratio 12/21/2016 Comp Metabolic Flo511 Os mo 272 mOsmo 12/21/2016 Cbc With [...] 100.9 fl 12/21/2016 Cbc With Differential Ord2 Gaines% 6.9 % 12/21/2016 Cbc With Differential Ord2 [...] 2.05 K/ul 12/21/2016 Cbc With Differential Ord2 Gaines ABS# 0.4 K/ul 12/21/2016 Cbc With Differential Ord2 Eos ABS# 0.2 K/ul 12/21/2016 Cbc With Differential Ord2 Baso ABS# 0.0 K/ul 12/21/2016 Comp Metabolic Kud729 NA 138 mEq/L 09/03/2016 Comp Metabolic Xms398 K 4.5 mEq/L 09/03/2016 Comp Metabolic Aov881 CL 102 mEq/L 09/03/2016 Comp Metabolic Ers728 CO2 30.0 mEq/L 09/03/2016 Comp Metabolic Uhl073 AN ION GAP 11 09/03/2016 Comp Metabolic Xub212 GL UCOSE 113 mg/dL 09/03/2016 Comp Metabolic Czb713 Cr eat 1.0 mg/dL 09/03/2016 Comp Metabolic Fff363 eG FR 81 ml/min/1.73m2 09/03 Comp Metabolic Xij837 BUN 10 mg/dL 09/03/2016 Comp Metabolic Lhb006 B/ C Ratio 10.5 Ratio 09/03/2016 Comp Metabolic Xbv616 CA LCIUM 9.1 mg/dL 09/03/2016 Comp Metabolic Kgp799 AL K PHOS 71 U/L 09/03/2016 Comp Metabolic Evo820 T(SGOT) 18 U/L 09/03/2016 Comp Metabolic Qzb583 AL T(SGPT) 17 U/L 09/03/2016 Comp Metabolic Cjp048 BI LI T 0.6 mg/dL 09/03/2016 Comp Metabolic Iaj752 AL BUMIN 4.1 g/dL 09/03/2016 Comp Metabolic Mdt290 TP RO 6.4 g/dL 09/03/2016 Comp Metabolic Mbl416 GL OB 2.3 g/dL 09/03/2016 Comp Metabolic Ipt728 A/ G Ratio 1.8 Ratio 09/03/2016 Comp Metabolic Xgd432 Os mo 276 mOsmo 09/03/2016 Vitamin D 25 Oh Mld0007 VITAMIN D, 25 HYDROXY 28.23 ng/mL 09/03/2016 [...] 34.4 pg 09/03/2016 Cbc With Differential Ord2 Gaines% 8.9 % 09/03/2016 Cbc With Differential Ord2 [...] 3.34 K/ul 09/03/2016 Cbc With Differential Ord2 Gaines ABS# 0.7 K/ul 09/03/2016 Cbc With Differential Ord2 Eos ABS# 0.4 K/ul 09/03/2016 Cbc With Differential Ord2 Baso ABS# 0.0 K/ul 09/03/2016 Lipid Ord30 CHOL 120 mg/dL 09/03/2016 Lipid Ord30 HDL 33.0 mg/dl 09/03/2016 Lipid Ord30 TRIG 161 mg/dL 09/03/2016 Lipid Ord30 LDL 55 mg/dL 09/03/2016 Lipid Ord30 C/HDL 3.6 Ratio 09/03/2016 %Hba1C Aag855 % HbA1c 72869-7 7.5 % 09/03/2016 %Hba1C Nqc272 Gluc Ave 169 mg/dL 09/03/2016 Tsh Ord6 hTSH II 1.50 uIU/mL 05/23/2016 %Hba1C Oqv800 % HbA1c 98548-2 7.6 % 05/23/2016 %Hba1C Luu137 Gluc Ave 171 mg/dL 05/23/2016 Comp Metabolic Mco024 NA 135 mEq/L 05/23/2016 Comp Metabolic Rlz397 K 4.4 mEq/L 05/23/2016 Comp Metabolic Kqn535 CL 99 mEq/L 05/23/2016 Comp Metabolic Zik601 CO2 28.0 mEq/L 05/23/2016 Comp Metabolic Diy063 AN ION GAP 12 05/23/2016 Comp Metabolic Gom278 GL UCOSE 257 mg/dL 05/23/2016 Comp Metabolic Ban680 Cr eat 0.8 mg/dL 05/23/2016 Comp Metabolic Yrj638 eG FR 95 ml/min/1.73m2 05/23 Comp Metabolic Zpn062 BUN 11 mg/dL 05/23/2016 Comp Metabolic Kbc608 B/ C Ratio 13.3 Ratio 05/23/2016 Comp Metabolic Rqm887 CA LCIUM 9.0 mg/dL 05/23/2016 Comp Metabolic Cjs228 AL K PHOS 82 U/L 05/23/2016 Comp Metabolic Koj394 T(SGOT) 21 U/L 05/23/2016 Comp Metabolic Vla457 AL T(SGPT) 20 U/L 05/23/2016 Comp Metabolic Iur585 BI LI T 0.3 mg/dL 05/23/2016 Comp Metabolic Qlg349 AL BUMIN 4.0 g/dL 05/23/2016 Comp Metabolic Pmq056 TP RO 6.4 g/dL 05/23/2016 Comp Metabolic Ans719 GL OB 2.4 g/dL 05/23/2016 Comp Metabolic Dcu065 A/ G Ratio 1.6 Ratio 05/23/2016 Comp Metabolic Xul686 Os mo 278 mOsmo 05/23/2016 Cbc With [...] 34.5 pg 05/23/2016 Cbc With Differential Ord2 Gaines% 6.1 % 05/23/2016 Cbc With Differential Ord2 [...] 2.38 K/ul 05/23/2016 Cbc With Differential Ord2 Gaines ABS# 0.4 K/ul 05/23/2016 Cbc With Differential Ord2 Eos ABS# 0.2 K/ul 05/23/2016 Cbc With Differential Ord2 Baso ABS# 0.0 K/ul 05/23/2016 B12 Lce945 B12 597.00 pg/ml 05/23/2016 Metabolic Ord15 NA [...] 0.92 uIU/mL 07/29/2015 Vitamin D 25 Oh Sog3280 VITAMIN D, 25 HYDROXY 26.93 ng/mL 07/29/2015 %Hba1C Npt497 % HbA1c 75983-4 8.8 % 07/29/2015 %Hba1C Onc557 Gluc Ave 206 mg/dL 07/29/2015 Cbc With [...] Ord2 RDW 14.9 % 07/29/2015 Comp Metabolic Kft157 NA 138 mEq/L 07/29/2015 Comp Metabolic Dcm891 K 4.4 mEq/L 07/29/2015 Comp Metabolic Byp329 CL 102 mEq/L 07/29/2015 Comp Metabolic Oqv517 CO2 28.0 mEq/L 07/29/2015 Comp Metabolic Pco526 AN ION GAP 12 07/29/2015 Comp Metabolic Eir407 GL UCOSE 261 mg/dL 07/29/2015 Comp Metabolic Tah942 Cr eat 1.0 mg/dL 07/29/2015 Comp Metabolic Ftx599 eG FR 77 ml/min/1.73m2 07/29 Comp Metabolic Ojl886 BUN 13 mg/dL 07/29/2015 Comp Metabolic Vhq231 B/ C Ratio 13.0 Ratio 07/29/2015 Comp Metabolic Cfw506 CA LCIUM 9.1 mg/dL 07/29/2015 Comp Metabolic Wqs088 AL K PHOS 64 U/L 07/29/2015 Comp Metabolic Uso960 T(SGOT) 20 U/L 07/29/2015 Comp Metabolic Uri669 AL T(SGPT) 22 U/L 07/29/2015 Comp Metabolic Gfl194 BI LI T 0.4 mg/dL 07/29/2015 Comp Metabolic Hxi049 AL BUMIN 4.0 g/dL 07/29/2015 Comp Metabolic Nxn513 TP RO 6.1 g/dL 07/29/2015 Comp Metabolic Dkw455 GL OB 2.1 g/dL 07/29/2015 Comp Metabolic Rkm894 A/ G Ratio 1.9 Ratio 07/29/2015 Comp Metabolic Oqh626 Os mo 285 mOsmo 07/29/2015 Cbc With [...] Ord2 RDW 13.1 % 05/06/2015 Comp Metabolic Ceb457 NA 134 mEq/L 05/06/2015 Comp Metabolic Eob970 K 4.4 mEq/L 05/06/2015 Comp Metabolic Iuz072 CL 98 mEq/L 05/06/2015 Comp Metabolic Hsc699 CO2 29.0 mEq/L 05/06/2015 Comp Metabolic Xxy659 AN ION GAP 11 05/06/2015 Comp Metabolic Edd672 GL UCOSE 321 mg/dL 05/06/2015 Comp Metabolic Lkh547 Cr eat 1.0 mg/dL 05/06/2015 Comp Metabolic Buw654 eG FR 78 ml/min/1.73m2 05/06 Comp Metabolic Sxe657 BUN 20 mg/dL 05/06/2015 Comp Metabolic Mma689 B/ C Ratio 20.4 Ratio 05/06/2015 Comp Metabolic Blj704 CA LCIUM 9.5 mg/dL 05/06/2015 Comp Metabolic Xvd553 AL K PHOS 62 U/L 05/06/2015 Comp Metabolic Fye854 T(SGOT) 21 U/L 05/06/2015 Comp Metabolic Sxl303 AL T(SGPT) 37 U/L 05/06/2015 Comp Metabolic Bfm364 BI LI T 0.4 mg/dL 05/06/2015 Comp Metabolic Tqg368 AL BUMIN 3.8 g/dL 05/06/2015 Comp Metabolic Srk185 TP RO 6.1 g/dL 05/06/2015 Comp Metabolic Xcr115 GL OB 2.3 g/dL 05/06/2015 Comp Metabolic Cmm722 A/ G Ratio 1.7 Ratio 05/06/2015 Comp Metabolic Nlw524 Os mo 283 mOsmo 05/06/2015 Tsh Ord6 hTSH II 1.65 uIU/mL 02/18/2015 B12 Kmk035 B12 605.00 pg/ml 02/18/2015 %Hba1C Xnc355 % HbA1c 46696-6 8.3 % 02/18/2015 %Hba1C Utp617 Gluc Ave 192 mg/dL 02/18/2015 Cbc With [...] Ord2 RDW 13.9 % 02/17/2015 Comp Metabolic Wxd064 NA 137 mEq/L 02/17/2015 Comp Metabolic Mnp112 K 4.4 mEq/L 02/17/2015 Comp Metabolic Ipf686 CL 100 mEq/L 02/17/2015 Comp Metabolic Qtx774 CO2 31.0 mEq/L 02/17/2015 Comp Metabolic Cfn233 AN ION GAP 10 02/17/2015 Comp Metabolic Eoa972 GL UCOSE 307 mg/dL 02/17/2015 Comp Metabolic Kjg520 Cr eat 1.0 mg/dL 02/17/2015 Comp Metabolic Wvs554 eG FR 74 ml/min/1.73m2 02/17 Comp Metabolic Bij667 BUN 22 mg/dL 02/17/2015 Comp Metabolic Rkx948 B/ C Ratio 21.4 Ratio 02/17/2015 Comp Metabolic Btd318 CA LCIUM 9.5 mg/dL 02/17/2015 Comp Metabolic Xnd784 AL K PHOS 78 U/L 02/17/2015 Comp Metabolic Tok266 T(SGOT) 18 U/L 02/17/2015 Comp Metabolic Lmx409 AL T(SGPT) 32 U/L 02/17/2015 Comp Metabolic Wia723 BI LI T 0.5 mg/dL 02/17/2015 Comp Metabolic Nhp302 AL BUMIN 4.3 g/dL 02/17/2015 Comp Metabolic Ygf281 TP RO 6.7 g/dL 02/17/2015 Comp Metabolic Amf391 GL OB 2.4 g/dL 02/17/2015 Comp Metabolic Fey913 A/ G Ratio 1.8 Ratio 02/17/2015 Comp Metabolic Twn910 Os mo 289 mOsmo 02/17/2015 Review of [...] inspection of skin Location: face 03/07/2015 on adventism, cheeks,actinic keratosis with irritation on left cheek - left adventism - croptherapy on these two lesions - [...] Procedure Codes Date THER/PROPH/DIAG INJ SC/IM CPT-4: 00890 07/28/2018 THER/PROPH/DIAG INJ SC/IM CPT-4: 39330 07/16/2018 THER/PROPH/DIAG INJ SC/IM CPT-4: 17651 07/02/2018 PPPS, SUBSEQ VISIT CPT- 4: G0439 06/30/2018 THER/PROPH/DIAG INJ SC/IM CPT-4: 28855 06/24/2018 THER/PROPH/DIAG INJ SC/IM CPT-4: 82820 06/13/2018 ADMIN INFLUENZA VIRU S VAC CPT-4: G0008 06/06/2018 FLU VACC PRSV FREE I NC ANTIG CPT-4: 44301 06/06/2018 THER/PROPH/DIAG INJ SC/IM CPT-4: 86329 06/05/2018 THER/PROPH/DIAG INJ SC/IM CPT-4: 43890 05/30/2018 THER/PROPH/DIAG INJ SC/IM CPT-4: 55936 05/22/2018 THER/PROPH/DIAG INJ SC/IM CPT-4: 08708 05/12/2018 THER/PROPH/DIAG INJ SC/IM CPT-4: 93362 05/02/2018 THER/PROPH/DIAG INJ SC/IM CPT-4: 89756 04/24/2018 THER/PROPH/DIAG INJ SC/IM CPT-4: 67032 04/17/2018 KETOROLAC TROMETHAMI NE INJ CPT-4: J1885 03/07/2018 URINALYSIS NONAUTO W /O SCOPE CPT-4: 84031 03/07/2018 THER/PROPH/DIAG INJ SC/IM CPT-4: 81338 02/20/2018 TRIAMCINOLONE ACET I [place] NOS CPT-4: J3301 01/30/2018 THER/PROPH/DIAG INJ SC/IM CPT-4: 36654 01/17/2018 TOBACCO-USE PROCESS TECH 3-[address]: 312126792 CPT-4: G0436 04/25/2017 ADMIN INFLUENZA VIRU S VAC CPT-4: G0008 04/25/2017 ADMIN PNEUMOCOCCAL V ACCINE SNOMED CT: 36904405 CPT-4: G0009 04/25/2017 PNEUMOCOCCAL VACC [address]: 00318914 CPT-4: 54554 04/25/2017 FLU VACC PRSV FREE I NC ANTIG CPT-4: 62007 04/25/2017 ADMIN INFLUENZA VIRU S VAC CPT-4: G0008 05/22/2016 FLU VACC 4 TELLY 3 YRS PLUS IM Formatting Model/CDA Sections, Assigned to/Angela Clemons SNOMED CT: 09395610 CPT-4: 45269Ewpysxb 05/22/2016 TOBACCO-USE PROCESS TECH 3-[address]: 401425351 CPT-4: G0436 11/25/2015 URINALYSIS NONAUTO W /O SCOPE CPT-4: 00841 05/09/2015 TRIAMCINOLONE ACET I [place] NOS CPT-4: J3301 04/12/2015 DESTRUCT PREMALG LESION CPT-4: 34993 03/07/2015 DESTRUCT PREMALG LES 2-14 CPT-4: 95004 03/07/2015 REMOVE IMPACTED EAR WAX UNI CPT-4: 79655 12/31/2014 THER/PROPH/DIAG INJ SC/IM CPT-4: 51067 12/23/2014 TRIAMCINOLONE ACET I [place] NOS CPT-4: J3301 12/23/2014 Vital Signs Date Vital 06/30/2018 BMI: 21.8 Code: 55292-1 Height: 5'11" Weight: 156 lbs 06/06/2018 Blood Pressure 1: 128/76 Code: 8480-6 BMI: 22.0 Code: 02896-0 Heart Rate 1: 81 bpm Height: 5'11" SpO2: 92% Weight: 158 lbs 04/04/2018 Blood Pressure 1: 124/70 Code: 8480-6 BMI: 20.8 Code: 99305-7 Heart Rate 1: 65 bpm Height: 5'11" SpO2: 95% Weight: 149 lbs 03/07/2018 Blood Pressure 1: 148/70 Code: 8480-6 BMI: 21.2 Code: 12542-9 Heart Rate 1: 66 bpm Height: 5'11" SpO2: 94% Weight: 152 lbs 02/20/2018 Blood Pressure 1: 134/58 Code: 8480-6 BMI: 20.5 Code: 94242-9 Heart Rate 1: 61 bpm Height: 5'11" SpO2: 92% Weight: 147 lbs 01/30/2018 Blood Pressure 1: 158/68 Code: 8480-6 BMI: 21.5 Code: 71662-9 Heart Rate 1: 71 bpm Height: 5'11" SpO2: 92% Weight: 154 lbs 01/14/2018 Blood Pressure 1: 156/70 Code: 8480-6 Height: Weight: 01/13/2018 Blood Pressure 1: 148/62 Code: 8480-6 BMI: 20.9 Code: 35589-2 Heart Rate 1: 54 bpm Height: 5'11" SpO2: 97% Weight: 150 lbs 11/19/2017 Blood Pressure 1: 150/60 Code: 8480-6 BMI: 21.8 Code: 28283-8 Heart Rate 1: 63 bpm Height: 5'11" SpO2: 98% Weight: 156 lbs 10/02/2017 Blood Pressure 1: 168/60 Code: 8480-6 BMI: 21.9 Code: 70044-1 Heart Rate 1: 52 bpm Height: 5'11" SpO2: 97% Weight: 157 lbs 07/23/2017 Blood Pressure 1: 170/70 Code: 8480-6 BMI: 21.8 Code: 66748-4 Heart Rate 1: 65 bpm Height: 5'11" SpO2: 98% Weight: 156 lbs 04/25/2017 Blood Pressure 1: 138/60 Code: 8480-6 BMI: 21.6 Code: 44524-8 Heart Rate 1: 55 bpm Height: 5'11" SpO2: 93% Weight: 155 lbs 02/19/2017 Blood Pressure 1: 138/64 Code: 8480-6 BMI: 21.3 Code: 48912-0 Heart Rate 1: 52 bpm Height: 5'11" SpO2: 96% Weight: 152 lbs 8 oz 01/21/2017 Blood Pressure 1: 160/68 Code: 8480-6 BMI: 21.3 Code: 17422-1 Heart Rate 1: 62 bpm Height: 5'11" SpO2: 96% Weight: 153 lbs 12/20/2016 Blood Pressure 1: 124/66 Code: 8480-6 BMI: 21.5 Code: 79967-7 Height: 5'11" Weight: 154 lbs 08/23/2016 Blood Pressure 1: 142/52 Code: 8480-6 BMI: 21.2 Code: 36230-2 Heart Rate 1: 54 bpm Height: 5'11" SpO2: 96% Weight: 152 lbs 05/22/2016 Blood Pressure 1: 130/76 Code: 8480-6 BMI: 21.5 Code: 88886-6 Heart Rate 1: 78 bpm Height: 5'11" SpO2: 92% Weight: 154 lbs 02/24/2016 Blood Pressure 1: 128/80 Code: 8480-6 BMI: 21.2 Code: 81133-5 Heart Rate 1: 74 bpm Height: 5'11" SpO2: 96% Weight: 152 lbs 01/27/2016 Blood Pressure 1: 144/60 Code: 8480-6 BMI: 21.2 Code: 88404-0 Heart Rate 1: 74 bpm Height: 5'11" SpO2: 97% Weight: 152 lbs 11/25/2015 Blood Pressure 1: 110/52 Code: 8480-6 BMI: 21.9 Code: 66759-1 Heart Rate 1: 65 bpm Height: 5'11" SpO2: 92% Weight: 157 lbs 07/28/2015 Blood Pressure 1: 138/62 Code: 8480-6 BMI: 21.8 Code: 81609-1 Heart Rate 1: 63 bpm Height: 5'11" SpO2: 91% Weight: 156 lbs 05/26/2015 Blood Pressure 1: 120/58 Code: 8480-6 BMI: 21.5 Code: 64640-1 Heart Rate 1: 99 bpm Height: 5'11" SpO2: 96% Weight: 154 lbs 05/06/2015 Blood Pressure 1: 120/58 Code: 8480-6 BMI: 21.2 Code: 63902-1 Heart Rate 1: 66 bpm Height: 5'11" SpO2: 96% Weight: 152 lbs 04/25/2015 Blood Pressure 1: 136/62 Code: 8480-6 BMI: 21.2 Code: 78707-2 Heart Rate 1: 63 bpm Height: 5'11" SpO2: 97% Weight: 152 lbs 04/12/2015 Blood Pressure 1: 160/58 Code: 8480-6 BMI: 21.6 Code: 61812-8 Heart Rate 1: 62 bpm Height: 5'11" Weight: 155 lbs 03/24/2015 Blood Pressure 1: 138/68 Code: 8480-6 BMI: 22.0 Code: 12478-7 Heart Rate 1: 65 bpm Height: 5'11" SpO2: 96% Weight: 158 lbs 03/07/2015 Blood Pressure 1: 116/52 Code: 8480-6 BMI: 22.2 Code: 45657-4 Heart Rate 1: 64 bpm Height: 5'11" SpO2: 97% Weight: 159 lbs 02/17/2015 Blood Pressure 1: 148/58 Code: 8480-6 BMI: 21.3 Code: 46296-3 Heart Rate 1: 63 bpm Height: 5'11" SpO2: 97% Weight: 153 lbs 12/31/2014 Blood Pressure 1: 100/60 Code: 8480-6 BMI: 21.8 Code: 76750-6 Heart Rate 1: 68 bpm Height: 5'11" Weight: 156 lbs 12/23/2014 Blood Pressure 1: 148/64 Code: 8480-6 BMI: 21.9 Code: 16108-2 Heart Rate 1: 64 bpm Height: 5'11" [...] Encounters Encounter Performer Loca tion Codes Date ([id number]) [id number] EST. [facility] Diagnosis: Cellulitis of face[ICD10: L03.211] Diagnosis: Type 2 diabetes mellitus without complications[ICD10: E11.9] Diagnosis: Essential (primary) hypertension[ICD10: I10] Diagnosis: Encounter for immunization[ICD10: Z23] Karmen Ash MD, [facility] CPT-4: 67866 06/06/2018 ([id number]) [id number] EST. 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 P ATIENT, LEVEL III Diagnosis: Low back pain[ICD10: M54.5] Diagnosis: Dysuria[ICD10: R30.0] Karmen Ash MD, [facility] CPT-4: 88377 03/07/2018 ([id number]) 70844 EST. 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 P ATIENT, LEVEL III Diagnosis: Chronic obstructive pulmonary disease with (acute) exacerbation[ICD10: J44.1] Karmen Ash MD, [facility] CPT-4: 01833 01/30/2018 [id number] EST. PATIENT, LEVEL II Diagnosis: Insect bite (nonvenomous), left lower leg, initial encounter[ICD10: S80.862A] [facility] CPT-4: 27715 01/14/2018 ([id number]) 59773 EST. P ATIENT, LEVEL IV Diagnosis: Type 2 diabetes mellitus with hyperglycemia[ICD10: E11.65] Diagnosis: Chronic obstructive pulmonary disease, unspecified[ICD10: J44.9] Diagnosis: Other fatigue[ICD10: R53.83] [facility] CPT- 4: 28301 01/13/2018 ([id number]) 07065 EST. P ATIENT, LEVEL IV Diagnosis: Type 2 diabetes mellitus with hyperglycemia[ICD10: E11.65] Diagnosis: Vitamin D deficiency, unspecified[ICD10: E55.9] Diagnosis: Essential (primary) hypertension[ICD10: I10] Diagnosis: Abdominal distension (gaseous)[ICD10: R14.0] Diagnosis: Drug induced constipation[ICD10: K59.03] Karmen Ash MD, [facility] CPT-4: 00712 11/19/2017 [id number] EST. PATIENT, LEVEL IV Diagnosis: Low back pain[ICD10: M54.5] Diagnosis: Chronic obstructive pulmonary disease, unspecified[ICD10: J44.9] Brunilda Ash MD, [facility] CPT-4: 28604 10/02/2017 ([id number]) 68747 EST. P ATIENT, LEVEL IV Diagnosis: Essential (primary) hypertension[ICD10: I10] Diagnosis: Type 2 diabetes mellitus with hyperglycemia[ICD10: E11.65] Diagnosis: Vitamin D deficiency, unspecified[ICD10: E55.9] Diagnosis: Mixed hyperlipidemia[ICD10: E78.2] Karmen Ash MD, [facility] CPT-4: 69214 07/23/2017 ([id number]) 88474 EST. P ATIENT, LEVEL IV Diagnosis: Essential (primary) hypertension[ICD10: I10] Diagnosis: Type 2 diabetes mellitus with hyperglycemia[ICD10: E11.65] Diagnosis: Chronic obstructive pulmonary disease, unspecified[ICD10: J44.9] Diagnosis: Nicotine dependence, unspecified, uncomplicated[ICD10: F17.200] Diagnosis: Encounter for immunization[ICD10: Z23] Karmen Ash MD, [facility] CPT-4: 45707 04/25/2017 ([id number]) [id number] EST. P ATIENT, LEVEL IV Diagnosis: Type 2 diabetes mellitus with hyperglycemia[ICD10: E11.65] Diagnosis: Essential (primary) hypertension[ICD10: I10] Diagnosis: Anemia, unspecified[ICD10: D64.9] [facility] CPT- 4: 24455 02/19/2017 ([id number]) 13125 EST. P ATIENT, LEVEL IV Diagnosis: Slow transit constipation[ICD10: K59.01] Diagnosis: Gastro-esophageal reflux disease without esophagitis[ICD10: K21.9] Diagnosis: Essential (primary) hypertension[ICD10: I10] Karmen Ash MD, [facility] CPT-4: 73757 01/21/2017 ([id number]) 94300 EST. P ATIENT, LEVEL IV Diagnosis: Type 2 diabetes mellitus with hyperglycemia[ICD10: E11.65] Diagnosis: Vitamin D deficiency, unspecified[ICD10: E55.9] Diagnosis: Essential (primary) hypertension[ICD10: I10] Diagnosis: Chronic obstructive pulmonary disease, unspecified[ICD10: J44.9] Karmen Ash MD, [facility] CPT-4: 77512 12/20/2016 ([id number]) 22750 EST. P ATIENT, LEVEL IV Diagnosis: Type 2 diabetes mellitus with hyperglycemia[ICD10: E11.65] Diagnosis: Essential (primary) hypertension[ICD10: I10] Diagnosis: Mixed hyperlipidemia[ICD10: E78.2] Diagnosis: Vitamin D deficiency, unspecified[ICD10: E55.9] Karmen Ash MD, [facility] CPT-4: 40892 08/23/2016 ([id number]) 03972 EST. P ATIENT, LEVEL IV Diagnosis: Type 2 diabetes mellitus with hyperglycemia[ICD10: E11.65] Diagnosis: Essential (primary) hypertension[ICD10: I10] Diagnosis: Chronic obstructive pulmonary disease, unspecified[ICD10: J44.9] Karmen Ash MD, [facility] CPT-4: 74482 05/22/2016 ([id number]) 71365 EST. P ATIENT, LEVEL III Diagnosis: Dysuria[ICD10: R30.0] Diagnosis: Essential (primary) hypertension[ICD10: I10] Karmen Ash MD, [facility] CPT-4: 56327 02/24/2016 ([id number]) 52182 EST. P ATIENT, LEVEL IV Diagnosis: Gastro-esophageal reflux disease without esophagitis[ICD10: K21.9] Diagnosis: Slow transit constipation[ICD10: K59.01] Diagnosis: Type 2 diabetes mellitus with hyperglycemia[ICD10: E11.65] Karmen Ash MD, [facility] CPT-4: 02425 01/27/2016 ([id number]) 03745 EST. P ATIENT, LEVEL IV Diagnosis: Essential (primary) hypertension[ICD10: I10] Diagnosis: Type 2 diabetes mellitus with hyperglycemia[ICD10: E11.65] Diagnosis: Vitamin D deficiency, unspecified[ICD10: E55.9] Diagnosis: Chronic obstructive pulmonary disease, unspecified[ICD10: J44.9] Diagnosis: Mixed hyperlipidemia[ICD10: E78.2] Diagnosis: Tobacco use[ICD10: Z72.0] Karmen Ash MD, [facility] CPT- 4: 53502 11/25/2015 ([id number]) 96529 EST. P ATIENT, LEVEL IV Diagnosis: Type 2 diabetes mellitus with hyperglycemia[ICD10: E11.65] Diagnosis: Essential (primary) hypertension[ICD10: I10] Diagnosis: Vitamin D deficiency, unspecified[ICD10: E55.9] Karmen Ash MD, [facility] CPT-4: 82341 07/28/2015 ([id number]) 43355 EST. P ATIENT, LEVEL III Diagnosis: Type 2 diabetes mellitus with hyperglycemia[ICD10: E11.65] Diagnosis: Essential (primary) hypertension[ICD10: I10] Violeta Ash MD, [facility] CPT-4: 53814 05/26/2015 ([id number]) 86875 EST. P ATIENT, LEVEL III Diagnosis: DIABETES TYPE II[ICD9: 250.00] Diagnosis: COPD (chronic obstructive pulmonary disease)[ICD9: 496] Diagnosis: ESSENTIAL HYPERTENSION[ICD9: 401.9] Diagnosis: Cough[ICD9: 786.2] Violeta Ash MD, [facility] CPT-4: 59924 05/06/2015 ([id number]) 20982 EST. P ATIENT, LEVEL III Diagnosis: COPD (chronic obstructive pulmonary disease)[ICD9: 496] Diagnosis: DIABETES TYPE II[ICD9: 250.00] Diagnosis: Muscle ache[ICD9: 729.1] Karmen Ash MD, [facility] CPT- 4: 37299 04/25/2015 ([id number]) 10868 EST. P ATIENT, LEVEL III Diagnosis: ACTINIC KERATOSIS[ICD9: 702.0] Diagnosis: COPD (chronic obstructive pulmonary disease)[ICD9: 496] Diagnosis: DIABETES TYPE II[ICD9: 250.00] Diagnosis: ACUTE URI[ICD9: 465.9] Violeta Ash MD, [facility] CPT-4: 50201 04/12/2015 ([id number]) 07567 EST. P ATIENT, LEVEL III Diagnosis: DIABETES TYPE II[ICD9: 250.00] Violeta Ash MD, [facility] CPT-4: 07064 03/24/2015 ([id number]) 83052 EST. P ATIENT, LEVEL IV Diagnosis: DIABETES TYPE II[ICD9: 250.00] Diagnosis: Hypoglycemia[ICD9: 251.2] Diagnosis: Skin texture changes[ICD9: 782.8] Violeta Ash MD, [facility] CPT-4: 23239 03/07/2015 ([id number]) 31180 EST. P ATIENT, LEVEL IV Diagnosis: COPD (chronic obstructive pulmonary disease)[ICD9: 496] Diagnosis: Fatigue[ICD9: 780.79] Diagnosis: Insulin dependent diabetes mellitus[ICD9: 250.00] Diagnosis: Unsteady gait[ICD9: 781.2] Maame Ash MD, [facility] CPT-4: 54775 02/17/2015 ([id number]) 16429 EST. P ATIENT, LEVEL IV Diagnosis: BPPV (benign paroxysmal positional vertigo)[ICD9: 386.11] Diagnosis: Impacted cerumen[ICD9: 380.4] Diagnosis: ESSENTIAL HYPERTENSION[ICD9: 401.9] Diagnosis: Insulin dependent diabetes mellitus[ICD9: 250.00] Karmen Ash MD, [facility] CPT-4: 47274 12/23/2014 ([id number]) OFFICE VISI , [facility] - LEVEL 4 Diagnosis: Insulin dependent diabetes mellitus[ICD9: 250.00] Diagnosis: BPPV (benign paroxysmal positional vertigo)[ICD9: 386.11] Diagnosis: COPD (chronic obstructive pulmonary disease)[ICD9: 496] Diagnosis: Tobacco abuse[ICD9: 305.1] Diagnosis: Osteoarthritis[ICD9: 715.90] Karmen Ash MD, [facility] CPT- 4: 74812 12/09/2014 Plan of Care Planned Activity Notes C odes Status Date Patient Education: Patient Medication Summary Completed 07/28/2018 [...] surrogate. 06/30/2018 [phone] [phone] [facility] - Annual Wellness Visit 06/30/2018 Patient [...] pain. 06/06/2018 Appointment: Karmen Espinal WPtel: [phone] [phone] (15 min) Moderate 06/06/2018 Patient Education: Patient [...] months 04/04/2018 Appointment: Karmen Espinal WPtel: [phone] [phone] (15 min) Moderate 04/04/2018 Patient Education: Patient Medication Summary Completed 04/04/2018 Care Plan: Cbc With Differential Pending 04/04/2018 Care Plan: Testosterone repeat in 2 months Pending 04/04/2018 Appointment: Karmen Espinal WPtel: [phone] [phone] (15 min) Moderate 03/25/2018 Visit Plan: Low back pain -history of kidney stone-UA negative today -increase fluids and call if pain does not resolve or if any worse. 03/07/2018 Appointment: EspinalKarmen WPtel: [phone] [phone] [place] (15 min) Moderate 03/07/2018 Patient Education: [...] 1 month 02/20/2018 Appointment: Karmen Espinal WPtel: [phone] [place] (15 min) Moderate 02/20/2018 Patient Education: Patient Medication Summary Completed 02/20/2018 Visit Plan: COPD EXACERBATION - GLASSWARE SELECTOR D is a chronic problem for this [...] changes. 01/30/2018 Appointment: Karmen Espinal WPtel: [phone] [phone] [place] (15 min) Moderate 01/30/2018 Patient Education: Patient Medication Summary Completed 01/30/2018 Appointment: Karmen Espinal WPtel: [phone] [place] (15 min) Moderate 01/28/2018 Appointment: Injection 01/17/2018 Patient Education: Patient Medication Summary Completed 01/17/2018 Visit Plan: Cellulitis - start oral antibiotics as directed, return to clinic as previously directed, call for acute change in symptoms, worsening redness, warmth, discharge. 01/14/2018 Appointment: Karmen Espinal WPtel: [phone] [phone] [place] (10 min) Simple 01/14/2018 Patient Education: [...] less controlled. 01/13/2018 Appointment: Karmen Espinal WPtel: [phone] (15 min) Moderate 01/13/2018 Patient Education: Patient Medication Summary Completed 01/13/2018 [phone] [place] [address] Patient's informed. Referral info f porfirio. Completed [...] change in blood pressure readings at home. Zqbxaqlk-bbiyur-seegc to see Dr Villatoro Constipation-start linzess daily 11/19/2017 Appointment: Karmen Espinal WPtel: [phone] [phone] (30 min) Complex 11/19/2017 Patient Education: Patient Medication Summary Completed 11/19/2017 Care Plan: Referral Order bloating, nausea SNOMED-CT : 322684734 Pending 11/19/2017 Visit Plan: Low back pain- [...] acute changes. 10/02/2017 Appointment: Brunilda Maravilla WPtel[phone] (15 min) Moderate 10/02/2017 Patient Education: [...] less controlled. 07/23/2017 Appointment: Karmen Espinal WPtel: [phone] [phone] (30 min) Complex 07/23/2017 Patient Education: Patient [...] 04/25/2017 Appointment: [facility]el[phone] [phone] (30 min) Complex 04/25/2017 Patient Education: [...] readings are starting to become less controlled. Wjqnak-yvjbddu-dpfsw labs 02/19/2017 Appointment: [facility]inal [facility]Ptel[facility] [phone] [phone] (30 min) Complex 02/19/2017 Patient Education: [...] month 01/21/2017 Appointment: [facility]el[phone] [phone] (30 min) Complex 01/21/2017 Patient Education: Patient Medication Summary Completed 01/21/2017 Patient Education: Smoking and Tobacco Addiction Completed 01/21/2017 Patient Education: Hypertension Completed 01/21/2017 Care Plan: Referral Order SNOMED-CT : 642011422 Pending 01/21/2017 Visit Plan: Diabetes Mellitus - [...] acute changes. 12/20/2016 Appointment: Karmen Espinal WPtel: [phone] (30 min) Complex 12/20/2016 Patient Education: Patient Medication Summary Completed 12/20/2016 Patient Education: Smoking and Tobacco Addiction Completed 12/20/2016 Patient Education: Hypertension Completed 12/20/2016 Appointment: Karmen Espinal WPtel: [phone] (30 min) Complex 09/06/2016 Visit Plan: Diabetes [...] 08/23/2016 Appointment: [facility]el[facility] [phone] [phone] (30 min) Complex 08/23/2016 Patient Education: [...] 05/22/2016 Appointment: [facility]el[facility] [phone] [phone] (30 min) Complex 05/22/2016 Patient Education: Patient Medication Summary Completed 05/22/2016 Patient Education: Smoking and Tobacco Addiction Completed 05/22/2016 Care Plan: Cbc With Differential Ordered 05/22/2016 Care Plan: %Hba1C LOIN C : 15183-7 Ordered 05/22/2016 Care Plan: Tsh Ordered 05/22/2016 [...] update 02/24/2016 Appointment: Karmen Espinal WPtel: [phone] [phone] (30 min) Complex 02/24/2016 Patient Education: Patient [...] regimen. 01/27/2016 Appointment: Karmen Espinal WPtel: [phone] [phone] (30 min) Complex 01/27/2016 Patient Education: Patient [...] use medication to assist cessation. COPD-sample of symbiBocomrt Hyperlipidemia - pt has been counseled about [...] Completed 05/06/2015 Visit Plan: COPD EXACERBATION - [employer]ASS[employer] SELECTOR D is a chronic problem for this [...] POTENTIAL SIDE EFFECTS AND WORSENING OF SYMPTOMS. Eauymjab-aputpybo-DOOI SIMVASTATIN X 2 WEEKS AND CALL WITH [...] Care Plan: COMPLETE CBC AUTOMATED LOINC : 76017-7 Ordered 03/24/2015 Visit Plan: Diabetes Mellitus - [...] removal. 03/07/2015 Appointment: Violeta Ash WPtel: [address] [place], [place] [phone] (15 min) Moderate 03/07/2015 Patient Education: Patient [...] The wax was removed by the [facility] ctitioner due to the wax being more [...] Care Plan: COMPLETE CBC AUTOMATED LOINC : 22321-8 Ordered 12/23/2014 Visit Plan: BPPV - Benign [...] next appt 12/09/2014 Appointment: Karmen Espinal WPtel: [address] [place], [place] [phone] [place] ([place]) New Patient 12/09/2014 Patient Education: Patient Medication Summary Completed 12/09/2014 Patient Education: .Amazing charts Parox ysmal positional vertigo Completed 12/09/2014 Patient Education: Smoking and Tobacco Addiction Completed 12/09/2014 Referral: Hugo Villatoro HPtel:[phone] [facility] Referral Appointment Requested Referral: Luis [...] readings are starting to become less controlled. Fynfoa-dtyyfsi-xenhw labs . Cellulitis - start oral antibiotics as directed, return to clinic as previously directed, call for acute change in symptoms, worsening redness, warmth, discharge. CHECK UA TORADOL INCREASE PO FLUIDS STRETCHES [...] change in blood pressure readings at home. Yimshsvj-ppzmmf-awfrv to see Dr Villatoro Constipation-start linzess daily [...] POTENTIAL SIDE EFFECTS AND WORSENING OF SYMPTOMS. Sgokiede-zntpklyp-NKCO SIMVASTATIN X 2 WEEKS AND CALL WITH [...] Insulin Dependent Diabetes- Check labs today. . Cerumen Impaction - The impacted cerumen [...] - referral to Dr. Donohue for removal. BRING BLOOD SUGAR LO G TO NEXT [...]
--- OUTSIDE RECORDS SUMMARY | 2020-03-29 09:31 | XMS REPORT | CCD ---
Author Author Dick Espinal Organization Violeta Ash MD, [facility] Address [address] [place] [address] Phone Care Team Providers Care Biomedical Service Engineer Name Role Phone PP Unavailable CCM Unavailable Summary Purpose Interface Exchange Insurance Providers Payer name Policy type / Coverage type Covered green party ID Effective Begin Date Effective End Date WPS Medicare Part B Medicare Part B [id number] Unknown Unknown [employer] Medicar e Part B [id number] Unknown Unkn own Family history Father Diagnosis Age At Onset Cancer Unknown Mother Diagnosis Age At Onset Cancer Unknown Social History Social History Element Codes Description Effective Dates Marital status Unknown M arried 12/09/2014 Employment Unknown Retir ed 12/09/[address]: 51466081 Currently smokes tobacco 12/09/2014 Number of years using tobacco Unknown > 50 12/09/2014 Number of cigarettes/day Unknown 30 (Pack and a half) 12/09/[address]: 880613785 Never drinks alcohol 12/09/2014 Allergies, Adverse Reactions, [...] 5 mg-linh taminophen 325 mg tablet RxNorm: 835177 1 Tablet(s) PO Q6-8H as needed 07/21/2018 08/14/2018 Active testosterone cypiona te 200 mg/mL intramuscular oil RxNorm: 379190 Milliliter(s) IM 07/16/2018 07/16/2018 In active testosterone cypiona te 200 mg/mL intramuscular oil RxNorm: 863477 Milliliter(s) IM 07/02/2018 07/02/2018 In active Xanax 0.5 mg tablet RxNorm: 388471 1 Tablet(s) PO TID 06/27/2018 08/25/2018 Active testosterone cypiona te 200 mg/mL intramuscular oil RxNorm: 717534 Milliliter(s) IM 06/24/2018 06/24/2018 In active hydrocodone 5 mg-linh taminophen 325 mg tablet RxNorm: 269378 1 Tablet(s) PO Q6-8H as needed 06/23/2018 07/17/2018 Inactive testosterone cypiona te 200 mg/mL intramuscular oil RxNorm: 822631 Milliliter(s) IM 06/13/2018 06/13/2018 In active testosterone cypiona te 200 mg/mL intramuscular oil RxNorm: 704750 Milliliter(s) IM 06/05/2018 06/05/2018 In active testosterone cypiona te 200 mg/mL intramuscular oil RxNorm: 320159 1/2 Milliliter(s) IM weekly 05/30/2018 09/26/2018 Active testosterone cypiona te 200 mg/mL intramuscular oil RxNorm: 775323 Milliliter(s) IM 05/30/2018 05/30/2018 In active testosterone cypiona te 200 mg/mL intramuscular oil RxNorm: 026702 Milliliter(s) IM 05/22/2018 05/22/2018 In active hydrocodone 5 mg-linh taminophen 325 mg tablet RxNorm: 540772 1 Tablet(s) PO Q6-8H as needed 05/20/2018 06/13/2018 Inactive testosterone cypiona te 200 mg/mL intramuscular oil RxNorm: 154416 1/2 Milliliter(s) IM 05/12/2018 05/12/2018 Inactive testosterone cypiona te 200 mg/mL intramuscular oil RxNorm: 100930 Milliliter(s) IM 05/02/2018 05/02/2018 In active testosterone cypiona te 200 mg/mL intramuscular oil RxNorm: 971992 1/2 Milliliter(s) IM weekly 04/24/2018 05/29/2018 Inactive testosterone cypiona te 200 mg/mL intramuscular oil RxNorm: 321125 0.5 Milliliter(s) IM 04/24/2018 04/24/2018 Inactive hydrocodone 5 mg-linh taminophen 325 mg tablet RxNorm: 025365 1 Tablet(s) PO Q6-8H as needed 04/22/2018 05/16/2018 Inactive testosterone cypiona te 200 mg/mL intramuscular oil RxNorm: 884516 1/2 Milliliter(s) IM 04/17/2018 04/17/2018 Inactive testosterone cypiona te 200 mg/mL intramuscular oil RxNorm: 511388 1/2 Milliliter(s) IM weekly 04/16/2018 04/23/2018 Inactive Jardiance 10 mg tablet RxNorm: 2993909 1 Tablet(s) PO daily 04/04/2018 12/29/2018 Active Protonix 40 mg table t,delayed release RxNorm: 664867 1 Tablet(s) PO daily TAKE 1 TABLET BY MOUTH DAILY 04/04/2018 03/29/2019 Active - Ref: [id number] testosterone cypiona te 200 mg/mL intramuscular oil RxNorm: 005574 1 Milliliter(s) IM monthly 04/04/2018 04/15/2018 Inactive hydrocodone 5 mg-linh taminophen 325 mg tablet RxNorm: 589916 1 Tablet(s) PO Q6-8H as needed 03/19/2018 04/12/2018 Inactive Flomax 0.4 mg capsule RxNorm: 529420 1 Capsule(s) PO daily 03/10/2018 03/04/2019 Active Urecholine 25 mg tablet RxNorm: 958882 1 Tablet(s) PO BID 03/10/2018 07/07/2018 Inactive ketorolac 60 mg/2 mL intramuscular solution RxNorm: 2958536 Milliliter(s) IM 03/07/2018 03/07/2018 In active metformin 500 mg tablet RxNorm: 626440 Tablet(s) TAKE 1 TABLET BY MOUTH DAILY 02/20/2018 02/14/2019 Ac tive 1 q am and 1/2 tab q pm hydrocodone 5 mg-linh taminophen 325 mg tablet RxNorm: 043031 1 Tablet(s) PO Q6-8H as needed 02/20/2018 03/16/2018 Inactive Kenalog 40 mg/mL bartolome pension for injection RxNorm: 3152904 1.5 Milliliter(s) In j 01/30/2018 01/30/2018 In active hydrocodone 5 mg-linh taminophen 325 mg tablet RxNorm: 322521 1 Tablet(s) PO Q6-8H as needed 01/23/2018 02/16/2018 Inactive Urecholine 25 mg tablet RxNorm: 048251 1 Tablet(s) PO BID 01/22/2018 03/09/2018 Inactive Flomax 0.4 mg capsule RxNorm: 341607 1 Capsule(s) PO daily 01/22/2018 03/09/2018 Inactive Flomax 0.4 mg capsule RxNorm: 955227 1 Capsule(s) PO daily 01/22/2018 01/21/2018 Inactive Urecholine 25 mg tablet RxNorm: 225929 1 Tablet(s) PO BID 01/22/2018 01/21/2018 Inactive testosterone cypiona te 200 mg/mL intramuscular oil RxNorm: 620619 Milliliter(s) IM 01/17/2018 01/17/2018 In active testosterone cypiona te 200 mg/mL intramuscular oil RxNorm: 141643 1 Milliliter(s) IM monthly 01/17/2018 04/03/2018 Inactive lisinopril 10 mg tablet RxNorm: 042611 TAKE 1 TABLET BY MOUTH TWO TIMES DAILY 01/14/2018 01/08/2019 Ac tive - First Attempt Ref: [id number] doxycycline hyclate 100 mg tablet RxNorm: 506717 1 Tablet(s) PO BID 01/14/2018 01/23/2018 Inactive Xanax 0.5 mg tablet RxNorm: 590121 1 Tablet(s) PO TID 01/08/2018 04/06/2018 Inactive nystatin 100,000 uni t/mL oral suspension RxNorm: 883264 4 Milliliter(s) PO QI D Swish and swallow 01/08/2018 01/07/2018 Inactive nystatin 100,000 uni t/mL oral suspension RxNorm: 547195 4 Milliliter(s) PO QI D Swish and swallow 01/08/2018 01/12/2018 Inactive simvastatin 40 mg ta blet RxNorm: 172047 TAKE 1 TABLET BY MOUT H DAILY AT BEDTIME 12/30/2017 12/24/2018 Ac tive - First Attempt Ref: [id number] metformin 500 mg tablet RxNorm: 095033 TAKE 1 TABLET BY MOUTH DAILY 12/30/2017 02/19/2018 Inactive - First Attempt Ref: [id number] hydrocodone 5 mg-linh taminophen 325 mg tablet RxNorm: 320695 1 Tablet(s) PO Q6-8H as needed 12/25/2017 01/18/2018 Inactive Protonix 40 mg table t,delayed release RxNorm: 461224 Tablet(s) TAKE 1 TABL ET BY MOUTH DAILY 11/20/2017 04/03/2018 Inactive - Ref: [id number] Linzess 72 mcg capsule RxNorm: 0094815 1 Capsule(s) PO daily 11/19/2017 No Stop Date Active hydrocodone 5 mg-linh taminophen 325 mg tablet RxNorm: 940925 1 Tablet(s) PO Q6-8H as needed 11/19/2017 12/13/2017 Inactive hydrocodone 5 mg-linh taminophen 325 mg tablet RxNorm: 447734 1 Tablet(s) PO Q6-8H as needed 10/28/2017 11/18/2017 Inactive Xanax 0.5 mg tablet RxNorm: 748987 1 Tablet(s) PO TID 10/25/2017 12/22/2017 Inactive Xanax 0.5 mg tablet RxNorm: 390687 TAKE ONE TABLET BY MOUTH THREE TIMES A D AY 10/24/2017 12/22/2017 In active hydrocodone 5 mg-linh taminophen 325 mg tablet RxNorm: 946510 1 Tablet(s) PO Q6-8H as needed 09/30/2017 10/24/2017 Inactive Protonix 40 mg table t,delayed release RxNorm: 587651 TAKE 1 TABLET BY MOUT H DAILY 09/16/2017 11/19/2017 In active - Ref: [id number] Yovana Perkins 300 unit/mL (1.5 mL) subcutaneous insulin pen RxNorm: 1164409 35 Unit(s) SQ QHS 08/30/2017 No Stop Date Active dosage increase hydrocodone 5 mg-linh taminophen 325 mg tablet RxNorm: 541416 1 Tablet(s) PO Q6-8H as needed 08/28/2017 09/29/2017 Inactive hydrocodone 5 mg-linh taminophen 325 mg tablet RxNorm: 928107 1 Tablet(s) PO Q6-8H as needed 07/23/2017 08/24/2017 Inactive lisinopril 10 mg tablet RxNorm: 586394 1 Tablet(s) PO BID Take 1 tablet by mout h daily 07/23/2017 01/13/2018 Inactive hydrocodone 5 mg-linh taminophen 325 mg tablet RxNorm: 752377 1 Tablet(s) PO Q6-8H as needed 06/27/2017 07/22/2017 Inactive Xanax 0.5 mg tablet RxNorm: 181472 1 Tablet(s) PO TID 06/18/2017 10/25/2017 Inactive hydrocodone 5 mg-linh taminophen 325 mg tablet RxNorm: 143564 1 Tablet(s) PO Q6-8H as needed 05/27/2017 06/26/2017 Inactive Levaquin 500 mg tablet RxNorm: 833001 1 Tablet(s) PO daily 05/24/2017 05/23/2017 Inactive Levaquin 500 mg tablet RxNorm: 017898 1 Tablet(s) PO daily 05/24/2017 05/30/2017 Inactive Protonix 40 mg table t,delayed release RxNorm: 058847 Take 1 tablet by mout h daily 04/29/2017 09/15/2017 In active - Ref: [id number] hydrocodone 5 mg-linh taminophen 325 mg tablet RxNorm: 307623 1 Tablet(s) PO Q6-8H as needed 04/25/2017 05/26/2017 Inactive metformin 500 mg tablet RxNorm: 781274 Take 1 tablet by mouth daily 04/08/2017 12/29/2017 Inactive - First Attempt Ref: [id number] hydrocodone 5 mg-linh taminophen 325 mg tablet RxNorm: 051778 1 Tablet(s) PO Q6-8H as needed 03/27/2017 04/24/2017 Inactive hydrocodone 5 mg-linh taminophen 325 mg tablet RxNorm: 847096 1 Tablet(s) PO Q6-8H as needed 02/25/2017 03/26/2017 Inactive Protonix 40 mg table t,delayed release RxNorm: 283426 Tablet(s) Take 1 tabl et by mouth BID 02/25/2017 04/28/2017 Inactive Protonix 40 mg table t,delayed release RxNorm: 245770 Tablet(s) Take 1 tabl et by mouth BID 02/19/2017 02/18/2017 Inactive Protonix 40 mg table t,delayed release RxNorm: 819459 Tablet(s) Take 1 tabl et by mouth BID 02/19/2017 02/24/2017 Inactive lisinopril 10 mg tablet RxNorm: 045002 Take 1 tablet by mouth daily 01/29/2017 07/22/2017 Inactive - First Attempt Ref: [id number] hydrocodone 5 mg-linh taminophen 325 mg tablet RxNorm: 219671 1 Tablet(s) PO Q6-8H as needed 01/25/2017 02/24/2017 Inactive simvastatin 40 mg ta blet RxNorm: 769793 Tablet(s) Take 1 tabl et by mouth daily at bedtime 01/03/2017 12/28/2017 Inactive lisinopril 10 mg tablet RxNorm: 788221 Tablet(s) Take 1 tablet by mouth daily 01/03/2017 01/28/2017 In active Protonix 40 mg table t,delayed release RxNorm: 938387 Tablet(s) Take 1 tabl et by mouth daily 12/28/2016 02/18/2017 Inactive hydrocodone 5 mg-linh taminophen 325 mg tablet RxNorm: 566388 1 Tablet(s) PO Q6-8H as needed 12/26/2016 01/24/2017 Inactive Xanax 0.5 mg tablet RxNorm: 756059 1 Tablet(s) PO TID 12/12/2016 03/11/2017 Inactive simvastatin 40 mg ta blet RxNorm: 628345 Tablet(s) Take 1 tabl et by mouth daily at bedtime 11/30/2016 01/02/2017 Inactive simvastatin 40 mg ta blet RxNorm: 528120 Take 1 tablet by mout h daily at bedtime 11/29/2016 11/29/2016 In active - First Attempt Ref: [id number] Protonix 40 mg table t,delayed release RxNorm: 398526 Take 1 tablet by mout h daily 11/27/2016 12/27/2016 In active - First Attempt Ref: [id number] hydrocodone 5 mg-linh taminophen 325 mg tablet RxNorm: 253453 1 Tablet(s) PO Q6-8H as needed 11/26/2016 12/25/2016 Inactive hydrocodone 5 mg-linh taminophen 325 mg tablet RxNorm: 195854 1 Tablet(s) PO Q8 as needed 10/24/2016 11/25/2016 Inactive Xanax 0.5 mg tablet RxNorm: 455565 1 Tablet(s) PO TID 10/09/2016 12/25/2016 Inactive hydrocodone 5 mg-linh taminophen 325 mg tablet RxNorm: 409563 1 Tablet(s) PO Q8 as needed 09/27/2016 10/23/2016 Inactive lisinopril 10 mg tablet RxNorm: 389469 Take 1 tablet by mouth daily 09/25/2016 01/02/2017 Inactive - First Attempt Ref: [id number] Vitamin D2 50,000 un it capsule RxNorm: 017848 1 Capsule(s) PO QW 09/06/2016 No Stop Date Active hydrocodone 5 mg-linh taminophen 325 mg tablet RxNorm: 815238 1 Tablet(s) PO Q8 as needed 08/28/2016 09/26/2016 Inactive Toujeo SoloStar 300 unit/mL (1.5 mL) subcutaneous insulin pen RxNorm: 7365751 25 Unit(s) SQ QHS 08/23/2016 08/29/2017 Inactive dosage increase hydrocodone 5 mg-linh taminophen 325 mg tablet RxNorm: 009570 1 Tablet(s) PO Q8 as needed 07/26/2016 08/27/2016 Inactive Protonix 40 mg table t,delayed release RxNorm: 227133 Take 1 tablet by mout h daily 07/24/2016 11/26/2016 In active - First Attempt Ref: [id number] hydrocodone 5 mg-linh taminophen 325 mg tablet RxNorm: 717480 1 Tablet(s) PO Q8 as needed 06/19/2016 07/21/2016 Inactive Toujeo SoloStar 300 unit/mL (1.5 mL) subcutaneous insulin pen RxNorm: 5360875 32 Unit(s) SQ QHS 05/30/2016 08/22/2016 Inactive dosage increase hydrocodone 5 mg-linh taminophen 325 mg tablet RxNorm: 864626 1 Tablet(s) PO Q8 as needed 05/22/2016 06/18/2016 Inactive hydrocodone 5 mg-linh taminophen 325 mg tablet RxNorm: 477356 1 Tablet(s) PO Q8 as needed 04/18/2016 05/17/2016 Inactive Protonix 40 mg table t,delayed release RxNorm: 213251 Take 1 tablet by mout h daily 04/05/2016 07/03/2016 In active - Ref: [id number] metformin 500 mg tablet RxNorm: 761825 Take 1 tablet by mouth daily 04/04/2016 07/02/2016 Inactive - Ref: [id number] Xanax 0.5 mg tablet RxNorm: 043306 1 Tablet(s) PO TID 03/30/2016 09/25/2016 Inactive Xanax 0.5 mg tablet RxNorm: 992140 1 Tablet(s) PO TID 03/23/2016 12/25/2016 Inactive hydrocodone 5 mg-linh taminophen 325 mg tablet RxNorm: 853939 1 Tablet(s) PO Q8 as needed 03/06/2016 04/04/2016 Inactive Cipro 500 mg tablet RxNorm: 661871 1 Tablet(s) PO BID 02/24/2016 03/04/2016 Inactive Miralax 17 gram oral powder packet RxNorm: 459717 1 packet PO every oth er day 01/27/2016 No Stop Date Active hydrocodone 5 mg-linh taminophen 325 mg tablet RxNorm: 959702 1 Tablet(s) PO Q8 as needed 01/27/2016 02/25/2016 Inactive lisinopril 10 mg tablet RxNorm: 660272 1 Tablet(s) PO daily 01/12/2016 09/24/2016 Inactive simvastatin 40 mg ta blet RxNorm: 339850 1 Tablet(s) PO QHS 01/12/2016 11/28/2016 Inactive simvastatin 40 mg ta blet RxNorm: 564844 1 Tablet(s) PO QHS 01/11/2016 01/11/2016 Inactive lisinopril 10 mg tablet RxNorm: 439995 1 Tablet(s) PO daily 01/06/2016 01/11/2016 Inactive simvastatin 40 mg ta blet RxNorm: 901763 1 Tablet(s) PO daily 12/28/2015 01/10/2016 Inactive hydrocodone 5 mg-linh taminophen 325 mg tablet RxNorm: 586415 1 Tablet(s) PO Q8 as needed 12/27/2015 01/26/2016 Inactive Xanax 0.5 mg tablet RxNorm: 189869 1 Tablet(s) PO TID 11/30/2015 03/29/2016 Inactive meclizine 25 mg tablet RxNorm: 162467 1 Tablet(s) PO Q6 PRN TAKE ONE TABLET BY MOUTH EVERY 6 HOURS NEEDED 11/25/2015 02/22/2016 Inactive Toujeo SoloStar 300 unit/mL (1.5 mL) subcutaneous insulin pen RxNorm: 9766623 30 Unit(s) SQ QHS 11/25/2015 05/29/2016 Inactive dosage increase omeprazole 20 mg cap jacquelyn,delayed release RxNorm: 913403 1 Capsule(s) PO daily 10/06/2015 01/26/2016 In active Toujeo SoloStar 300 unit/mL (1.5 mL) subcutaneous insulin pen RxNorm: 4979298 35 Unit(s) SQ QHS 08/02/2015 11/24/2015 Inactive dosage increase Vitamin D2 50,000 un it capsule RxNorm: 357991 1 Capsule(s) PO QW 08/02/2015 09/05/2016 Inactive hydrocodone 5 mg-linh taminophen 325 mg tablet RxNorm: 547376 1 Tablet(s) PO Q8 as needed 07/11/2015 12/26/2015 Inactive Xanax 0.5 mg tablet RxNorm: 346766 1 Tablet(s) PO TID 06/30/2015 06/29/2015 Inactive Xanax 0.5 mg tablet RxNorm: 850569 1 Tablet(s) PO TID 06/30/2015 12/25/2015 Inactive hydrocodone 5 mg-linh taminophen 325 mg tablet RxNorm: 010835 1 Tablet(s) PO Q8 as needed 05/06/2015 07/10/2015 Inactive Symbicort 160 mcg-4. 5 mcg/actuation HFA aerosol inhaler RxNorm: 0411224 INH 04/25/2015 No Stop Date Active Levemir FlexTouch 10 0 unit/mL (3 mL) subcutaneous insulin pen RxNorm: 402936 30 Unit(s) SQ QHS 04/25/2015 11/24/2015 Inactive prednisone 20 mg tablet RxNorm: 170832 1 Tablet(s) PO BID 04/25/2015 04/29/2015 Inactive metformin 500 mg tablet RxNorm: 139885 1 Tablet(s) PO daily 04/25/2015 04/03/2016 Inactive amoxicillin 500 mg c apsule RxNorm: 809215 1 Capsule(s) PO TID 04/14/2015 04/13/2015 Inactive amoxicillin 500 mg c apsule RxNorm: 848632 1 Capsule(s) PO TID a nd recommend probiotic tid (otc) 04/14/2015 04/20/2015 Inactive Kenalog 40 mg/mL bartolome pension for injection RxNorm: 1080213 Milliliter(s) Inj 04/12/2015 04/12/2015 In active hydrocodone 5 mg-linh taminophen 325 mg tablet RxNorm: 522604 1 Tablet(s) PO Q8 as needed 03/30/2015 05/05/2015 Inactive Lantus 100 unit/mL s ubcutaneous solution RxNorm: 840454 25 Unit(s) SQ QPM 03/24/2015 04/25/2015 In active meclizine 25 mg tablet RxNorm: 748881 Tablet(s) TAKE ONE TABLET BY MOUTH EVERY 6 HOURS NEEDED 03/08/2015 04/06/2015 Inactive meclizine 25 mg tablet RxNorm: 187002 TAKE ONE TABLET BY MOUTH EVERY 6 HOURS A S NEEDED 02/25/2015 03/03/2015 Inactive Lantus 100 unit/mL s ubcutaneous solution RxNorm: 704681 20 Unit(s) SQ QPM 02/23/2015 03/23/2015 In active Lantus 100 unit/mL s ubcutaneous solution RxNorm: 122258 25 Unit(s) SQ QPM 02/23/2015 02/22/2015 In active hydrocodone 5 mg-linh taminophen 325 mg tablet RxNorm: 639804 1 Tablet(s) PO Q8 as needed 02/17/2015 03/29/2015 Inactive Xanax 0.5 mg tablet RxNorm: 082973 1 Tablet(s) PO TID 02/03/2015 06/29/2015 Inactive Lantus 100 unit/mL s ubcutaneous solution RxNorm: 464588 20 Unit(s) SQ QPM 12/29/2014 02/22/2015 In active Phenergan 12.5 mg re ctal suppository RxNorm: 750871 1 Suppository RTL Q6 PRN 12/23/2014 No Stop Date Active nausea Kenalog 40 mg/mL bartolome pension for injection RxNorm: 6911498 Milliliter(s) Inj 12/23/2014 12/23/2014 In active prednisone 20 mg tablet RxNorm: 672216 2 Tablet(s) PO daily 12/13/2014 12/17/2014 Inactive prednisone 20 mg tablet RxNorm: 460340 2 Tablet(s) PO daily 12/13/2014 12/12/2014 Inactive meclizine 25 mg tablet RxNorm: 969203 1 Tablet(s) PO Q6 PRN 12/09/2014 02/24/2015 Inactive hydrocodone 5 mg-linh taminophen 325 mg tablet RxNorm: 337329 1 Tablet(s) PO Q8 as needed 12/09/2014 02/16/2015 Inactive Vitamin B-12 1,000 m cg/mL oral drops RxNorm: 9961443 1 Milliliter(s) PO d aily No Start Date Active Alphagan P 0.1 % eye drops RxNorm: 947476 1 Drop(s) OPH BID No Start Date Active aspirin 325 mg table t,delayed release RxNorm: 839719 1 Tablet(s) PO daily No Start Date Active Tricor 145 mg tablet RxNorm: 167092 1 Tablet(s) PO daily No Start Date Active vitamin A82-wrgyhoi B1 oral liquid RxNorm: 1,000 Microgram(s) PO daily No Start Date Active atenolol 50 mg tablet RxNorm: 180868 1 Tablet(s) PO daily No Start Date Active Protonix 40 mg table t,delayed release RxNorm: 183003 1 Tablet(s) PO daily No Start Date 04/04/2016 Inactive glipizide 10 mg tablet RxNorm: 852631 1 Tablet(s) PO BID No Start Date 03/22/2015 Inactive Lantus 100 unit/mL s ubcutaneous solution RxNorm: 014161 15 Unit(s) SQ QPM No Start Date 12/28/2014 Inactive lisinopril 10 mg tablet RxNorm: 832937 1 Tablet(s) PO daily No Start Date 01/05/2016 Inactive Vitamin D2 50,000 un it capsule RxNorm: 561495 1 Capsule(s) PO QW No Start Date 08/01/2015 Inactive Toujeo SoloStar 300 unit/mL (1.5 mL) subcutaneous insulin pen RxNorm: 7999487 30 Unit(s) SQ QHS No Start Date 08/01/2015 Inactive simvastatin 40 mg ta blet RxNorm: 746609 1 Tablet(s) PO daily No Start Date 12/27/2015 Inactive testosterone cypiona te 200 mg/mL intramuscular oil RxNorm: 086646 1 Milliliter(s) IM monthly No Start Date 01/16/2018 Inactive hydrocodone 5 mg-linh taminophen 325 mg tablet RxNorm: 980423 1 Tablet(s) PO Q8 as needed No Start Date 12/08/2014 Inactive metformin 500 mg tablet RxNorm: 425443 1 Tablet(s) PO daily No Start Date 04/24/2015 Inactive omeprazole 20 mg cap jacquelyn,delayed release RxNorm: 460383 1 Capsule(s) PO daily No Start Date 10/05/2015 Inactive Flomax 0.4 mg capsule RxNorm: 451785 1 Capsule(s) PO daily No Start Date 03/23/2015 Inactive Medication Administered Medication Codes Instruc tions Start Date Status testosterone cypionate 200 mg/mL intramuscular oil RxNorm: 379992 Milliliter 07/16/2018 No longer Active testosterone cypionate 200 mg/mL intramuscular oil RxNorm: 865732 Milliliter 07/02/2018 No longer Active testosterone cypionate 200 mg/mL intramuscular oil RxNorm: 525888 Milliliter 06/24/2018 No longer Active testosterone cypionate 200 mg/mL intramuscular oil RxNorm: 894105 Milliliter 06/13/2018 No longer Active testosterone cypionate 200 mg/mL intramuscular oil RxNorm: 699984 Milliliter 06/05/2018 No longer Active testosterone cypionate 200 mg/mL intramuscular oil RxNorm: 445712 Milliliter 05/30/2018 No longer Active testosterone cypionate 200 mg/mL intramuscular oil RxNorm: 987505 Milliliter 05/22/2018 No longer Active testosterone cypionate 200 mg/mL intramuscular oil RxNorm: 635015 1/2Milliliter 05/12/2018 No longer Active testosterone cypionate 200 mg/mL intramuscular oil RxNorm: 767480 Milliliter 05/02/2018 No longer Active testosterone cypionate 200 mg/mL intramuscular oil RxNorm: 284790 0.5Milliliter 04/24/2018 No longer Active testosterone cypionate 200 mg/mL intramuscular oil RxNorm: 562561 1/2Milliliter 04/17/2018 No longer Active ketorolac 60 mg/2 mL intramuscular solution RxNorm: 3383615 Milliliter 03/07/2018 No longer Active Kenalog 40 mg/mL suspension for injection RxNorm: 6360171 1.5Milliliter 01/30/2018 No longer Active testosterone cypionate 200 mg/mL intramuscular oil RxNorm: 155510 Milliliter 01/17/2018 No longer Active Kenalog 40 mg/mL suspension for injection RxNorm: 3329749 Milliliter 04/12/2015 No longer Active Kenalog 40 mg/mL suspension for injection RxNorm: 9741955 Milliliter 12/23/2014 No longer Active Immunizations Vaccine Codes Date Status Influenza CVX: 141 06/06 completed Influenza CVX: 141 04/25 completed Pneumococcal (Adult) CVX: 133 04/25/2017 completed Influenza CVX: 141 05/22 completed Assessments Condition Codes Effectiv e Dates Testicular dysfunction, unspecified ICD-10: E29.9 ICD-9: 257.9 07/16/2018 Encounter for general adult medical exam ination [...] Item Item Code Result Date Comp Metabolic Ehg861 NA 139 mEq/L 04/01/2018 Comp Metabolic Lvf030 K 4.2 mEq/L 04/01/2018 Comp Metabolic Sgp382 CL 102 mEq/L 04/01/2018 Comp Metabolic Isd879 CO2 29.0 mEq/L 04/01/2018 Comp Metabolic Cgh856 AN ION GAP 12 04/01/2018 Comp Metabolic Fok398 GL UCOSE 87 mg/dL 04/01/2018 Comp Metabolic Cip427 Cr eat 1.1 mg/dL 04/01/2018 Comp Metabolic Lcd940 eG FR 70 ml/min/1.73m2 04/01 Comp Metabolic Qlu512 BUN 21 mg/dL 04/01/2018 Comp Metabolic Dlm876 B/ C Ratio 19.4 Ratio 04/01/2018 Comp Metabolic Hap359 CA LCIUM 9.1 mg/dL 04/01/2018 Comp Metabolic Bkw848 AL K PHOS 60 U/L 04/01/2018 Comp Metabolic Joj152 T(SGOT) 15 U/L 04/01/2018 Comp Metabolic Bnh171 AL T(SGPT) 18 U/L 04/01/2018 Comp Metabolic Qqj751 BI LI T 0.4 mg/dL 04/01/2018 Comp Metabolic Ego412 AL BUMIN 4.0 g/dL 04/01/2018 Comp Metabolic Qqb076 TP RO 6.5 g/dL 04/01/2018 Comp Metabolic Lat202 GL OB 2.5 g/dL 04/01/2018 Comp Metabolic Pbp233 A/ G Ratio 1.6 Ratio 04/01/2018 Comp Metabolic Dlq871 Os mo 280 mOsmo 04/01/2018 Lipid Ord30 [...] 101.6 fl 04/01/2018 Cbc With Differential Ord2 [place]% 6.0 % 04/01/2018 Cbc With Differential Ord2 [...] 3.25 K/ul 04/01/2018 Cbc With Differential Ord2 [place] ABS# 0.6 K/ul 04/01/2018 Cbc With Differential Ord2 Eos ABS# 0.4 K/ul 04/01/2018 Cbc With Differential Ord2 Baso ABS# 0.0 K/ul 04/01/2018 %Hba1C Ivr662 % HbA1c 10832-1 8.0 % 04/01/2018 %Hba1C Ktu116 Gluc Ave 183 mg/dL 04/01/2018 Testosterone Esb420 Testo 111.3 ng/dL 04/01/2018 Testosterone Hov111 Testo 135.4 ng/dL 01/14/2018 Cbc With Differential [...] 36.0 pg 01/14/2018 Cbc With Differential Ord2 [place]% 6.8 % 01/14/2018 Cbc With Differential Ord2 [...] 2.71 K/ul 01/14/2018 Cbc With Differential Ord2 [place] ABS# 0.8 K/ul 01/14/2018 Cbc With Differential Ord2 Eos ABS# 0.2 K/ul 01/14/2018 Cbc With Differential Ord2 Baso ABS# 0.0 K/ul 01/14/2018 Comp Metabolic Kbz080 NA 134 mEq/L 11/20/2017 Comp Metabolic Myh188 K 4.4 mEq/L 11/20/2017 Comp Metabolic Fka725 CL 99 mEq/L 11/20/2017 Comp Metabolic Dpz463 CO2 29.0 mEq/L 11/20/2017 Comp Metabolic Hxv590 AN ION GAP 10 11/20/2017 Comp Metabolic Vwr420 GL UCOSE 218 mg/dL 11/20/2017 Comp Metabolic Mov058 Cr eat 1.0 mg/dL 11/20/2017 Comp Metabolic Lxp432 eG FR 78 ml/min/1.73m2 11/20 Comp Metabolic Ggh411 BUN 13 mg/dL 11/20/2017 Comp Metabolic Hob224 B/ C Ratio 13.3 Ratio 11/20/2017 Comp Metabolic Bxi351 CA LCIUM 9.0 mg/dL 11/20/2017 Comp Metabolic Ori431 AL K PHOS 71 U/L 11/20/2017 Comp Metabolic Fkf629 T(SGOT) 18 U/L 11/20/2017 Comp Metabolic Eej950 AL T(SGPT) 17 U/L 11/20/2017 Comp Metabolic Sgy718 BI LI T 0.4 mg/dL 11/20/2017 Comp Metabolic Uot189 AL BUMIN 4.1 g/dL 11/20/2017 Comp Metabolic Jbk177 TP RO 6.5 g/dL 11/20/2017 Comp Metabolic Jna770 GL OB 2.4 g/dL 11/20/2017 Comp Metabolic Hpr993 A/ G Ratio 1.8 Ratio 11/20/2017 Comp Metabolic Zti825 Os mo 275 mOsmo 11/20/2017 Cbc With [...] 35.2 pg 11/20/2017 Cbc With Differential Ord2 [place]% 7.2 % 11/20/2017 Cbc With Differential Ord2 [...] 3.34 K/ul 11/20/2017 Cbc With Differential Ord2 [place] ABS# 0.6 K/ul 11/20/2017 Cbc With Differential Ord2 Eos ABS# 0.3 K/ul 11/20/2017 Cbc With Differential Ord2 Baso ABS# 0.0 K/ul 11/20/2017 Vitamin D 25 Oh [id number] VITAMIN D, 25 HYDROXY 43.72 ng/mL 11/20/2017 %Hba1C Mdx493 % HbA1c 20509-2 7.4 % 11/20/2017 %Hba1C Jfl229 Gluc Ave 166 mg/dL 11/20/2017 %Hba1C Pcw792 % HbA1c 92368-8 7.2 % 08/20/2017 %Hba1C Azp739 Gluc Ave 160 mg/dL 08/20/2017 Lipid Ord30 [...] 34.7 pg 08/20/2017 Cbc With Differential Ord2 [place]% 7.6 % 08/20/2017 Cbc With Differential Ord2 [...] 2.42 K/ul 08/20/2017 Cbc With Differential Ord2 [place] ABS# 0.6 K/ul 08/20/2017 Cbc With Differential Ord2 Eos ABS# 0.3 K/ul 08/20/2017 Cbc With Differential Ord2 Baso ABS# 0.0 K/ul 08/20/2017 Tsh Ord6 hTSH II 2.27 uIU/mL 08/20/2017 Comp Metabolic Crs362 NA 138 mEq/L 08/20/2017 Comp Metabolic Fbm708 K 4.3 mEq/L 08/20/2017 Comp Metabolic Ejh382 CL 102 mEq/L 08/20/2017 Comp Metabolic Hlj242 CO2 29.0 mEq/L 08/20/2017 Comp Metabolic Wtg755 AN ION GAP 11 08/20/2017 Comp Metabolic Kdy075 GL UCOSE 89 mg/dL 08/20/2017 Comp Metabolic Rbc316 Cr eat 1.0 mg/dL 08/20/2017 Comp Metabolic Npd859 eG FR 80 ml/min/1.73m2 08/20 Comp Metabolic Ycf827 BUN 13 mg/dL 08/20/2017 Comp Metabolic Xdi116 B/ C Ratio 13.5 Ratio 08/20/2017 Comp Metabolic Mho319 CA LCIUM 9.2 mg/dL 08/20/2017 Comp Metabolic Loa832 AL K PHOS 69 U/L 08/20/2017 Comp Metabolic Qgb615 T(SGOT) 18 U/L 08/20/2017 Comp Metabolic Bqx319 AL T(SGPT) 19 U/L 08/20/2017 Comp Metabolic Jmy895 BI LI T 0.6 mg/dL 08/20/2017 Comp Metabolic Gpk660 AL BUMIN 4.0 g/dL 08/20/2017 Comp Metabolic Ify518 TP RO 6.6 g/dL 08/20/2017 Comp Metabolic Bno741 GL OB 2.6 g/dL 08/20/2017 Comp Metabolic Rew000 A/ G Ratio 1.5 Ratio 08/20/2017 Comp Metabolic Dpz873 Os mo 275 mOsmo 08/20/2017 Vitamin D 25 Oh Bgf8971 VITAMIN D, 25 HYDROXY 30.96 ng/mL 08/20/2017 B12 Fbt716 B12 >1500.00 pg/ml 02/22/2017 Cbc With Differential [...] 35.7 pg 02/20/2017 Cbc With Differential Ord2 [place]% 6.3 % 02/20/2017 Cbc With Differential Ord2 [...] 3.19 K/ul 02/20/2017 Cbc With Differential Ord2 [place] ABS# 0.5 K/ul 02/20/2017 Cbc With Differential Ord2 Eos ABS# 0.4 K/ul 02/20/2017 Cbc With Differential Ord2 Baso ABS# 0.0 K/ul 02/20/2017 Comp Metabolic Fru056 NA 138 mEq/L 02/20/2017 Comp Metabolic Xck438 K 4.5 mEq/L 02/20/2017 Comp Metabolic Kqn759 CL 101 mEq/L 02/20/2017 Comp Metabolic Yhi978 CO2 31.0 mEq/L 02/20/2017 Comp Metabolic Gus915 AN ION GAP 11 02/20/2017 Comp Metabolic Pcw838 GL UCOSE 120 mg/dL 02/20/2017 Comp Metabolic Mor032 Cr eat 0.9 mg/dL 02/20/2017 Comp Metabolic Khz557 eG FR 83 ml/min/1.73m2 02/20 Comp Metabolic Chi793 BUN 15 mg/dL 02/20/2017 Comp Metabolic Had538 B/ C Ratio 16.1 Ratio 02/20/2017 Comp Metabolic Bni678 CA LCIUM 9.1 mg/dL 02/20/2017 Comp Metabolic Lim738 AL K PHOS 67 U/L 02/20/2017 Comp Metabolic Are521 T(SGOT) 15 U/L 02/20/2017 Comp Metabolic Rzw711 AL T(SGPT) 16 U/L 02/20/2017 Comp Metabolic Odn176 BI LI T 0.5 mg/dL 02/20/2017 Comp Metabolic Agh967 AL BUMIN 4.0 g/dL 02/20/2017 Comp Metabolic Ndz562 TP RO 6.4 g/dL 02/20/2017 Comp Metabolic Vtb616 GL OB 2.4 g/dL 02/20/2017 Comp Metabolic Ciy299 A/ G Ratio 1.7 Ratio 02/20/2017 Comp Metabolic Zpf287 Os mo 278 mOsmo 02/20/2017 Tsh Ord6 hTSH II 2.05 uIU/mL 02/20/2017 %Hba1C Rhu317 % HbA1c 44649-6 7.6 % 02/20/2017 %Hba1C Utn228 Gluc Ave 171 mg/dL 02/20/2017 Vitamin D 25 Oh Lsv0920 VITAMIN D, 25 HYDROXY 44.40 ng/mL 12/21/2016 Comp Metabolic Cnv064 NA 131 mEq/L 12/21/2016 Comp Metabolic Mas659 K 4.2 mEq/L 12/21/2016 Comp Metabolic Rvv206 CL 97 mEq/L 12/21/2016 Comp Metabolic Mvf339 CO2 27.0 mEq/L 12/21/2016 Comp Metabolic Agh358 AN ION GAP 11 12/21/2016 Comp Metabolic Jas010 GL UCOSE 266 mg/dL 12/21/2016 Comp Metabolic Sgx074 Cr eat 0.9 mg/dL 12/21/2016 Comp Metabolic Iak810 eG FR 88 ml/min/1.73m2 12/21 Comp Metabolic Zos614 BUN 12 mg/dL 12/21/2016 Comp Metabolic Fur245 B/ C Ratio 13.6 Ratio 12/21/2016 Comp Metabolic Bxg726 CA LCIUM 8.6 mg/dL 12/21/2016 Comp Metabolic Qan287 AL K PHOS 69 U/L 12/21/2016 Comp Metabolic Idc219 T(SGOT) 15 U/L 12/21/2016 Comp Metabolic Nig086 AL T(SGPT) 14 U/L 12/21/2016 Comp Metabolic Yjk702 BI LI T 0.3 mg/dL 12/21/2016 Comp Metabolic Kqo564 AL BUMIN 3.7 g/dL 12/21/2016 Comp Metabolic Dpo854 TP RO 5.9 g/dL 12/21/2016 Comp Metabolic Sxw447 GL OB 2.2 g/dL 12/21/2016 Comp Metabolic Vom381 A/ G Ratio 1.7 Ratio 12/21/2016 Comp Metabolic Bwk429 Os mo 272 mOsmo 12/21/2016 Cbc With [...] 100.9 fl 12/21/2016 Cbc With Differential Ord2 [place]% 6.9 % 12/21/2016 Cbc With Differential Ord2 [...] 2.05 K/ul 12/21/2016 Cbc With Differential Ord2 [place] ABS# 0.4 K/ul 12/21/2016 Cbc With Differential Ord2 Eos ABS# 0.2 K/ul 12/21/2016 Cbc With Differential Ord2 Baso ABS# 0.0 K/ul 12/21/2016 Comp Metabolic Aoh728 NA 138 mEq/L 09/03/2016 Comp Metabolic Zpn428 K 4.5 mEq/L 09/03/2016 Comp Metabolic Kjy844 CL 102 mEq/L 09/03/2016 Comp Metabolic Vji564 CO2 30.0 mEq/L 09/03/2016 Comp Metabolic Uth536 AN ION GAP 11 09/03/2016 Comp Metabolic Qvc015 GL UCOSE 113 mg/dL 09/03/2016 Comp Metabolic Oss456 Cr eat 1.0 mg/dL 09/03/2016 Comp Metabolic Xgy990 eG FR 81 ml/min/1.73m2 09/03 Comp Metabolic Iik294 BUN 10 mg/dL 09/03/2016 Comp Metabolic Bgh989 B/ C Ratio 10.5 Ratio 09/03/2016 Comp Metabolic Hic680 CA LCIUM 9.1 mg/dL 09/03/2016 Comp Metabolic Wgd700 AL K PHOS 71 U/L 09/03/2016 Comp Metabolic Kld890 T(SGOT) 18 U/L 09/03/2016 Comp Metabolic Qfk945 AL T(SGPT) 17 U/L 09/03/2016 Comp Metabolic Tzc350 BI LI T 0.6 mg/dL 09/03/2016 Comp Metabolic Aur026 AL BUMIN 4.1 g/dL 09/03/2016 Comp Metabolic Wxe202 TP RO 6.4 g/dL 09/03/2016 Comp Metabolic Baw604 GL OB 2.3 g/dL 09/03/2016 Comp Metabolic Lgs096 A/ G Ratio 1.8 Ratio 09/03/2016 Comp Metabolic Cat201 Os mo 276 mOsmo 09/03/2016 Vitamin D 25 Oh Jhh3133 VITAMIN D, 25 HYDROXY 28.23 ng/mL 09/03/2016 [...] 34.4 pg 09/03/2016 Cbc With Differential Ord2 [place]% 8.9 % 09/03/2016 Cbc With Differential Ord2 [...] 3.34 K/ul 09/03/2016 Cbc With Differential Ord2 [place] ABS# 0.7 K/ul 09/03/2016 Cbc With Differential Ord2 Eos ABS# 0.4 K/ul 09/03/2016 Cbc With Differential Ord2 Baso ABS# 0.0 K/ul 09/03/2016 Lipid Ord30 CHOL 120 mg/dL 09/03/2016 Lipid Ord30 HDL 33.0 mg/dl 09/03/2016 Lipid Ord30 TRIG 161 mg/dL 09/03/2016 Lipid Ord30 LDL 55 mg/dL 09/03/2016 Lipid Ord30 C/HDL 3.6 Ratio 09/03/2016 %Hba1C Dmj549 % HbA1c 50761-0 7.5 % 09/03/2016 %Hba1C Pdm947 Gluc Ave 169 mg/dL 09/03/2016 Tsh Ord6 hTSH II 1.50 uIU/mL 05/23/2016 %Hba1C Cox981 % HbA1c 60818-5 7.6 % 05/23/2016 %Hba1C Yxz640 Gluc Ave 171 mg/dL 05/23/2016 Comp Metabolic Zbc715 NA 135 mEq/L 05/23/2016 Comp Metabolic Psb871 K 4.4 mEq/L 05/23/2016 Comp Metabolic Qgw912 CL 99 mEq/L 05/23/2016 Comp Metabolic Iau661 CO2 28.0 mEq/L 05/23/2016 Comp Metabolic Olb602 AN ION GAP 12 05/23/2016 Comp Metabolic Htc326 GL UCOSE 257 mg/dL 05/23/2016 Comp Metabolic Cfm631 Cr eat 0.8 mg/dL 05/23/2016 Comp Metabolic Edf705 eG FR 95 ml/min/1.73m2 05/23 Comp Metabolic Cki527 BUN 11 mg/dL 05/23/2016 Comp Metabolic Wjd306 B/ C Ratio 13.3 Ratio 05/23/2016 Comp Metabolic Jfe143 CA LCIUM 9.0 mg/dL 05/23/2016 Comp Metabolic Ffq068 AL K PHOS 82 U/L 05/23/2016 Comp Metabolic Hnt330 T(SGOT) 21 U/L 05/23/2016 Comp Metabolic Eqf034 AL T(SGPT) 20 U/L 05/23/2016 Comp Metabolic Wjf660 BI LI T 0.3 mg/dL 05/23/2016 Comp Metabolic Djf275 AL BUMIN 4.0 g/dL 05/23/2016 Comp Metabolic Ncr121 TP RO 6.4 g/dL 05/23/2016 Comp Metabolic Adn836 GL OB 2.4 g/dL 05/23/2016 Comp Metabolic Ria480 A/ G Ratio 1.6 Ratio 05/23/2016 Comp Metabolic Fpb243 Os mo 278 mOsmo 05/23/2016 Cbc With [...] 34.5 pg 05/23/2016 Cbc With Differential Ord2 [place]% 6.1 % 05/23/2016 Cbc With Differential Ord2 [...] 2.38 K/ul 05/23/2016 Cbc With Differential Ord2 [place] ABS# 0.4 K/ul 05/23/2016 Cbc With Differential Ord2 Eos ABS# 0.2 K/ul 05/23/2016 Cbc With Differential Ord2 Baso ABS# 0.0 K/ul 05/23/2016 B12 Kmk963 B12 597.00 pg/ml 05/23/2016 Metabolic Ord15 NA [...] 0.92 uIU/mL 07/29/2015 Vitamin D 25 Oh Jwh4101 VITAMIN D, 25 HYDROXY 26.93 ng/mL 07/29/2015 %Hba1C Xtu572 % HbA1c 42704-5 8.8 % 07/29/2015 %Hba1C Edz411 Gluc Ave 206 mg/dL 07/29/2015 Cbc With [...] Ord2 RDW 14.9 % 07/29/2015 Comp Metabolic Cuq325 NA 138 mEq/L 07/29/2015 Comp Metabolic Trf143 K 4.4 mEq/L 07/29/2015 Comp Metabolic Iyt969 CL 102 mEq/L 07/29/2015 Comp Metabolic Atx756 CO2 28.0 mEq/L 07/29/2015 Comp Metabolic Aul368 AN ION GAP 12 07/29/2015 Comp Metabolic Fgy613 GL UCOSE 261 mg/dL 07/29/2015 Comp Metabolic Dlw491 Cr eat 1.0 mg/dL 07/29/2015 Comp Metabolic Nvx092 eG FR 77 ml/min/1.73m2 07/29 Comp Metabolic Jsk153 BUN 13 mg/dL 07/29/2015 Comp Metabolic Peo445 B/ C Ratio 13.0 Ratio 07/29/2015 Comp Metabolic Mmt926 CA LCIUM 9.1 mg/dL 07/29/2015 Comp Metabolic Uks789 AL K PHOS 64 U/L 07/29/2015 Comp Metabolic Flz717 T(SGOT) 20 U/L 07/29/2015 Comp Metabolic Kch983 AL T(SGPT) 22 U/L 07/29/2015 Comp Metabolic Bkl094 BI LI T 0.4 mg/dL 07/29/2015 Comp Metabolic Moz340 AL BUMIN 4.0 g/dL 07/29/2015 Comp Metabolic Xkt330 TP RO 6.1 g/dL 07/29/2015 Comp Metabolic Bun255 GL OB 2.1 g/dL 07/29/2015 Comp Metabolic Dki625 A/ G Ratio 1.9 Ratio 07/29/2015 Comp Metabolic Sxu694 Os mo 285 mOsmo 07/29/2015 Cbc With [...] Ord2 RDW 13.1 % 05/06/2015 Comp Metabolic Moe241 NA 134 mEq/L 05/06/2015 Comp Metabolic Neb510 K 4.4 mEq/L 05/06/2015 Comp Metabolic Pfw269 CL 98 mEq/L 05/06/2015 Comp Metabolic Qdg565 CO2 29.0 mEq/L 05/06/2015 Comp Metabolic Pcs247 AN ION GAP 11 05/06/2015 Comp Metabolic Vqt376 GL UCOSE 321 mg/dL 05/06/2015 Comp Metabolic Kys980 Cr eat 1.0 mg/dL 05/06/2015 Comp Metabolic Nde532 eG FR 78 ml/min/1.73m2 05/06 Comp Metabolic Zxf002 BUN 20 mg/dL 05/06/2015 Comp Metabolic Dlm151 B/ C Ratio 20.4 Ratio 05/06/2015 Comp Metabolic Vhi693 CA LCIUM 9.5 mg/dL 05/06/2015 Comp Metabolic Zpb087 AL K PHOS 62 U/L 05/06/2015 Comp Metabolic Cmy093 T(SGOT) 21 U/L 05/06/2015 Comp Metabolic Jca409 AL T(SGPT) 37 U/L 05/06/2015 Comp Metabolic Miv501 BI LI T 0.4 mg/dL 05/06/2015 Comp Metabolic Fik966 AL BUMIN 3.8 g/dL 05/06/2015 Comp Metabolic For103 TP RO 6.1 g/dL 05/06/2015 Comp Metabolic Rih742 GL OB 2.3 g/dL 05/06/2015 Comp Metabolic Mex527 A/ G Ratio 1.7 Ratio 05/06/2015 Comp Metabolic Grd725 Os mo 283 mOsmo 05/06/2015 Tsh Ord6 hTSH II 1.65 uIU/mL 02/18/2015 B12 Sup216 B12 605.00 pg/ml 02/18/2015 %Hba1C Mcy200 % HbA1c 41155-0 8.3 % 02/18/2015 %Hba1C Loj350 Gluc Ave 192 mg/dL 02/18/2015 Cbc With [...] Ord2 RDW 13.9 % 02/17/2015 Comp Metabolic Opu444 NA 137 mEq/L 02/17/2015 Comp Metabolic Hmb167 K 4.4 mEq/L 02/17/2015 Comp Metabolic Jit719 CL 100 mEq/L 02/17/2015 Comp Metabolic Pwx085 CO2 31.0 mEq/L 02/17/2015 Comp Metabolic Zvf093 AN ION GAP 10 02/17/2015 Comp Metabolic Xfj383 GL UCOSE 307 mg/dL 02/17/2015 Comp Metabolic Ftm252 Cr eat 1.0 mg/dL 02/17/2015 Comp Metabolic Jqv440 eG FR 74 ml/min/1.73m2 02/17 Comp Metabolic Cxf857 BUN 22 mg/dL 02/17/2015 Comp Metabolic Xlw089 B/ C Ratio 21.4 Ratio 02/17/2015 Comp Metabolic Cfb855 CA LCIUM 9.5 mg/dL 02/17/2015 Comp Metabolic Foi732 AL K PHOS 78 U/L 02/17/2015 Comp Metabolic Brk255 T(SGOT) 18 U/L 02/17/2015 Comp Metabolic Qiy839 AL T(SGPT) 32 U/L 02/17/2015 Comp Metabolic Xiu214 BI LI T 0.5 mg/dL 02/17/2015 Comp Metabolic Upu246 AL BUMIN 4.3 g/dL 02/17/2015 Comp Metabolic Rra176 TP RO 6.7 g/dL 02/17/2015 Comp Metabolic Pqn959 GL OB 2.4 g/dL 02/17/2015 Comp Metabolic Ytt797 A/ G Ratio 1.8 Ratio 02/17/2015 Comp Metabolic Crr056 Os mo 289 mOsmo 02/17/2015 Review of [...] Procedure Codes Date THER/PROPH/DIAG INJ SC/IM CPT-4: 56881 07/16/2018 THER/PROPH/DIAG INJ SC/IM CPT-4: 07542 07/02/2018 PPPS, SUBSEQ VISIT CPT- 4: G0439 06/30/2018 THER/PROPH/DIAG INJ SC/IM CPT-4: 73376 06/24/2018 THER/PROPH/DIAG INJ SC/IM CPT-4: 25074 06/13/2018 ADMIN INFLUENZA VIRU S VAC CPT-4: G0008 06/06/2018 FLU VACC PRSV FREE I NC ANTIG CPT-4: 56672 06/06/2018 THER/PROPH/DIAG INJ SC/IM CPT-4: 30052 06/05/2018 THER/PROPH/DIAG INJ SC/IM CPT-4: 45687 05/30/2018 THER/PROPH/DIAG INJ SC/IM CPT-4: 76001 05/22/2018 THER/PROPH/DIAG INJ SC/IM CPT-4: 82148 05/12/2018 THER/PROPH/DIAG INJ SC/IM CPT-4: 93817 05/02/2018 THER/PROPH/DIAG INJ SC/IM CPT-4: 76956 04/24/2018 THER/PROPH/DIAG INJ SC/IM CPT-4: 22681 04/17/2018 KETOROLAC TROMETHAMI NE INJ CPT-4: J1885 03/07/2018 URINALYSIS NONAUTO W /O SCOPE CPT-4: 81270 03/07/2018 THER/PROPH/DIAG INJ SC/IM CPT-4: 99028 02/20/2018 TRIAMCINOLONE ACET I [place] NOS CPT-4: J3301 01/30/2018 THER/PROPH/DIAG INJ SC/IM CPT-4: 16973 01/17/2018 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-[address]: 226564836 CPT-4: G0436 04/25/2017 ADMIN INFLUENZA VIRU S VAC CPT-4: G0008 04/25/2017 ADMIN PNEUMOCOCCAL V ACCINE SNOMED CT: 90298381 CPT-4: G0009 04/25/2017 PNEUMOCOCCAL VACC [address]: 93515208 CPT-4: 33360 04/25/2017 FLU VACC PRSV FREE I NC ANTIG CPT-4: 21466 04/25/2017 ADMIN INFLUENZA VIRU S VAC CPT-4: G0008 05/22/2016 FLU VACC 4 TELLY 3 YRS PLUS IM Formatting Model/CDA Sections, Assigned to/Angela Clemons SNOMED CT: 72283138 CPT-4: 67716Bbfnqvy 05/22/2016 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-[address]: 678901239 CPT-4: G0436 11/25/2015 URINALYSIS NONAUTO W /O SCOPE CPT-4: 57255 05/09/2015 TRIAMCINOLONE ACET I [place] NOS CPT-4: J3301 04/12/2015 DESTRUCT PREMALG LESION CPT-4: 13812 03/07/2015 DESTRUCT PREMALG LES 2-14 CPT-4: 79116 03/07/2015 REMOVE IMPACTED EAR WAX UNI CPT-4: 13596 12/31/2014 THER/PROPH/DIAG INJ SC/IM CPT-4: 47552 12/23/2014 TRIAMCINOLONE ACET I [place] NOS CPT-4: J3301 12/23/2014 Vital Signs Date Vital 06/30/2018 BMI: 21.8 Code: 40735-1 Height: 5'11" Weight: 156 lbs 06/06/2018 Blood Pressure 1: 128/76 Code: 8480-6 BMI: 22.0 Code: 25568-1 Heart Rate 1: 81 bpm Height: 5'11" SpO2: 92% Weight: 158 lbs 04/04/2018 Blood Pressure 1: 124/70 Code: 8480-6 BMI: 20.8 Code: 71878-2 Heart Rate 1: 65 bpm Height: 5'11" SpO2: 95% Weight: 149 lbs 03/07/2018 Blood Pressure 1: 148/70 Code: 8480-6 BMI: 21.2 Code: 29914-4 Heart Rate 1: 66 bpm Height: 5'11" SpO2: 94% Weight: 152 lbs 02/20/2018 Blood Pressure 1: 134/58 Code: 8480-6 BMI: 20.5 Code: 84324-2 Heart Rate 1: 61 bpm Height: 5'11" SpO2: 92% Weight: 147 lbs 01/30/2018 Blood Pressure 1: 158/68 Code: 8480-6 BMI: 21.5 Code: 63763-6 Heart Rate 1: 71 bpm Height: 5'11" SpO2: 92% Weight: 154 lbs 01/14/2018 Blood Pressure 1: 156/70 Code: 8480-6 Height: Weight: 01/13/2018 Blood Pressure 1: 148/62 Code: 8480-6 BMI: 20.9 Code: 56908-3 Heart Rate 1: 54 bpm Height: 5'11" SpO2: 97% Weight: 150 lbs 11/19/2017 Blood Pressure 1: 150/60 Code: 8480-6 BMI: 21.8 Code: 29718-2 Heart Rate 1: 63 bpm Height: 5'11" SpO2: 98% Weight: 156 lbs 10/02/2017 Blood Pressure 1: 168/60 Code: 8480-6 BMI: 21.9 Code: 72298-4 Heart Rate 1: 52 bpm Height: 5'11" SpO2: 97% Weight: 157 lbs 07/23/2017 Blood Pressure 1: 170/70 Code: 8480-6 BMI: 21.8 Code: 76535-0 Heart Rate 1: 65 bpm Height: 5'11" SpO2: 98% Weight: 156 lbs 04/25/2017 Blood Pressure 1: 138/60 Code: 8480-6 BMI: 21.6 Code: 98270-6 Heart Rate 1: 55 bpm Height: 5'11" SpO2: 93% Weight: 155 lbs 02/19/2017 Blood Pressure 1: 138/64 Code: 8480-6 BMI: 21.3 Code: 89457-9 Heart Rate 1: 52 bpm Height: 5'11" SpO2: 96% Weight: 152 lbs 8 oz 01/21/2017 Blood Pressure 1: 160/68 Code: 8480-6 BMI: 21.3 Code: 42029-4 Heart Rate 1: 62 bpm Height: 5'11" SpO2: 96% Weight: 153 lbs 12/20/2016 Blood Pressure 1: 124/66 Code: 8480-6 BMI: 21.5 Code: 42162-5 Height: 5'11" Weight: 154 lbs 08/23/2016 Blood Pressure 1: 142/52 Code: 8480-6 BMI: 21.2 Code: 15300-9 Heart Rate 1: 54 bpm Height: 5'11" SpO2: 96% Weight: 152 lbs 05/22/2016 Blood Pressure 1: 130/76 Code: 8480-6 BMI: 21.5 Code: 60759-3 Heart Rate 1: 78 bpm Height: 5'11" SpO2: 92% Weight: 154 lbs 02/24/2016 Blood Pressure 1: 128/80 Code: 8480-6 BMI: 21.2 Code: 19045-3 Heart Rate 1: 74 bpm Height: 5'11" SpO2: 96% Weight: 152 lbs 01/27/2016 Blood Pressure 1: 144/60 Code: 8480-6 BMI: 21.2 Code: 04606-5 Heart Rate 1: 74 bpm Height: 5'11" SpO2: 97% Weight: 152 lbs 11/25/2015 Blood Pressure 1: 110/52 Code: 8480-6 BMI: 21.9 Code: 25311-8 Heart Rate 1: 65 bpm Height: 5'11" SpO2: 92% Weight: 157 lbs 07/28/2015 Blood Pressure 1: 138/62 Code: 8480-6 BMI: 21.8 Code: 66262-5 Heart Rate 1: 63 bpm Height: 5'11" SpO2: 91% Weight: 156 lbs 05/26/2015 Blood Pressure 1: 120/58 Code: 8480-6 BMI: 21.5 Code: 38816-6 Heart Rate 1: 99 bpm Height: 5'11" SpO2: 96% Weight: 154 lbs 05/06/2015 Blood Pressure 1: 120/58 Code: 8480-6 BMI: 21.2 Code: 68039-2 Heart Rate 1: 66 bpm Height: 5'11" SpO2: 96% Weight: 152 lbs 04/25/2015 Blood Pressure 1: 136/62 Code: 8480-6 BMI: 21.2 Code: 16550-4 Heart Rate 1: 63 bpm Height: 5'11" SpO2: 97% Weight: 152 lbs 04/12/2015 Blood Pressure 1: 160/58 Code: 8480-6 BMI: 21.6 Code: 20867-7 Heart Rate 1: 62 bpm Height: 5'11" Weight: 155 lbs 03/24/2015 Blood Pressure 1: 138/68 Code: 8480-6 BMI: 22.0 Code: 97963-6 Heart Rate 1: 65 bpm Height: 5'11" SpO2: 96% Weight: 158 lbs 03/07/2015 Blood Pressure 1: 116/52 Code: 8480-6 BMI: 22.2 Code: 24240-7 Heart Rate 1: 64 bpm Height: 5'11" SpO2: 97% Weight: 159 lbs 02/17/2015 Blood Pressure 1: 148/58 Code: 8480-6 BMI: 21.3 Code: 10229-1 Heart Rate 1: 63 bpm Height: 5'11" SpO2: 97% Weight: 153 lbs 12/31/2014 Blood Pressure 1: 100/60 Code: 8480-6 BMI: 21.8 Code: 70208-5 Heart Rate 1: 68 bpm Height: 5'11" Weight: 156 lbs 12/23/2014 Blood Pressure 1: 148/64 Code: 8480-6 BMI: 21.9 Code: 97788-9 Heart Rate 1: 64 bpm Height: 5'11" [...] Encounters Encounter Performer Loca tion Codes Date ([id number]) 65311 EST. P ATIENT, LEVEL IV Diagnosis: Cellulitis of face[ICD10: L03.211] Diagnosis: Type 2 diabetes mellitus without complications[ICD10: E11.9] Diagnosis: Essential (primary) hypertension[ICD10: I10] Diagnosis: Encounter for immunization[ICD10: Z23] [facility] CPT-4: 30349 06/06/2018 ([id number]) 98719 EST. 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 P ATIENT, LEVEL III Diagnosis: Low back pain[ICD10: M54.5] Diagnosis: Dysuria[ICD10: R30.0] [facility]armen [facility] MD, [facility] CPT-4: 09306 03/07/2018 ([id number]) 26220 EST. 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 P ATIENT, LEVEL III Diagnosis: Chronic obstructive pulmonary disease with (acute) exacerbation[ICD10: J44.1] Karmen [facility] MD, [facility] CPT-4: 94773 01/30/2018 [id number] EST. PATIENT, LEVEL II Diagnosis: Insect bite (nonvenomous), left lower leg, initial encounter[ICD10: S80.862A] Karmen [facility] MD, [facility] CPT-4: 67229 01/14/2018 ([id number]) 23082 EST. P ATIENT, LEVEL IV Diagnosis: Type 2 diabetes mellitus with hyperglycemia[ICD10: E11.65] Diagnosis: Chronic obstructive pulmonary disease, unspecified[ICD10: J44.9] Diagnosis: Other fatigue[ICD10: R53.83] [facility]en [facility] MD, [facility] CPT- 4: 56406 01/13/2018 ([id number]) 04608 EST. P ATIENT, LEVEL IV Diagnosis: Type 2 diabetes mellitus with hyperglycemia[ICD10: E11.65] Diagnosis: Vitamin D deficiency, unspecified[ICD10: E55.9] Diagnosis: Essential (primary) hypertension[ICD10: I10] Diagnosis: Abdominal distension (gaseous)[ICD10: R14.0] Diagnosis: Drug induced constipation[ICD10: K59.03] Karmen Ash MD, [facility] CPT-4: 73209 11/19/2017 05219 EST. PATIENT, LEVEL IV Diagnosis: Low back pain[ICD10: M54.5] Diagnosis: Chronic obstructive pulmonary disease, unspecified[ICD10: J44.9] Brunilda Ash MD, [facility] CPT-4: 30343 10/02/2017 ([id number]) 53211 EST. P ATIENT, LEVEL IV Diagnosis: Essential (primary) hypertension[ICD10: I10] Diagnosis: Type 2 diabetes mellitus with hyperglycemia[ICD10: E11.65] Diagnosis: Vitamin D deficiency, unspecified[ICD10: E55.9] Diagnosis: Mixed hyperlipidemia[ICD10: E78.2] [facility]armen Ash MD, [facility] CPT-4: 90641 07/23/2017 ([id number]) 15871 EST. P ATIENT, LEVEL IV Diagnosis: Essential (primary) hypertension[ICD10: I10] Diagnosis: Type 2 diabetes mellitus with hyperglycemia[ICD10: E11.65] Diagnosis: Chronic obstructive pulmonary disease, unspecified[ICD10: J44.9] Diagnosis: Nicotine dependence, unspecified, uncomplicated[ICD10: F17.200] Diagnosis: Encounter for immunization[ICD10: Z23] [facility]armen [facility] MD, [facility] CPT-4: 86208 04/25/2017 ([id number]) 87585 EST. P ATIENT, LEVEL IV Diagnosis: Type 2 diabetes mellitus with hyperglycemia[ICD10: E11.65] Diagnosis: Essential (primary) hypertension[ICD10: I10] Diagnosis: Anemia, unspecified[ICD10: D64.9] Karmen Ash MD, [facility] CPT- 4: 81894 02/19/2017 ([id number]) 04915 EST. P ATIENT, LEVEL IV Diagnosis: Slow transit constipation[ICD10: K59.01] Diagnosis: Gastro-esophageal reflux disease without esophagitis[ICD10: K21.9] Diagnosis: Essential (primary) hypertension[ICD10: I10] Karmen Ash MD, [facility] CPT-4: 85849 01/21/2017 ([id number]) 75938 EST. P ATIENT, LEVEL IV Diagnosis: Type 2 diabetes mellitus with hyperglycemia[ICD10: E11.65] Diagnosis: Vitamin D deficiency, unspecified[ICD10: E55.9] Diagnosis: Essential (primary) hypertension[ICD10: I10] Diagnosis: Chronic obstructive pulmonary disease, unspecified[ICD10: J44.9] Karmen Ash MD, [facility] CPT-4: 07111 12/20/2016 ([id number]) 18834 EST. P ATIENT, LEVEL IV Diagnosis: Type 2 diabetes mellitus with hyperglycemia[ICD10: E11.65] Diagnosis: Essential (primary) hypertension[ICD10: I10] Diagnosis: Mixed hyperlipidemia[ICD10: E78.2] Diagnosis: Vitamin D deficiency, unspecified[ICD10: E55.9] Karmen Ash MD, [facility] CPT-4: 86802 08/23/2016 ([id number]) 15534 EST. P ATIENT, LEVEL IV Diagnosis: Type 2 diabetes mellitus with hyperglycemia[ICD10: E11.65] Diagnosis: Essential (primary) hypertension[ICD10: I10] Diagnosis: Chronic obstructive pulmonary disease, unspecified[ICD10: J44.9] Karmen Ash MD, [facility] CPT-4: 97896 05/22/2016 ([id number]) 47325 EST. P ATIENT, LEVEL III Diagnosis: Dysuria[ICD10: R30.0] Diagnosis: Essential (primary) hypertension[ICD10: I10] Karmen Ash MD, [facility] CPT-4: 78940 02/24/2016 ([id number]) 05963 EST. P ATIENT, LEVEL IV Diagnosis: Gastro-esophageal reflux disease without esophagitis[ICD10: K21.9] Diagnosis: Slow transit constipation[ICD10: K59.01] Diagnosis: Type 2 diabetes mellitus with hyperglycemia[ICD10: E11.65] Karmen Ash MD, [facility] CPT-4: 07453 01/27/2016 ([id number]) 46529 EST. P ATIENT, LEVEL IV Diagnosis: Essential (primary) hypertension[ICD10: I10] Diagnosis: Type 2 diabetes mellitus with hyperglycemia[ICD10: E11.65] Diagnosis: Vitamin D deficiency, unspecified[ICD10: E55.9] Diagnosis: Chronic obstructive pulmonary disease, unspecified[ICD10: J44.9] Diagnosis: Mixed hyperlipidemia[ICD10: E78.2] Diagnosis: Tobacco use[ICD10: Z72.0] Karmen Ash MD, [facility] CPT- 4: 13479 11/25/2015 ([id number]) 31209 EST. P ATIENT, LEVEL IV Diagnosis: Type 2 diabetes mellitus with hyperglycemia[ICD10: E11.65] Diagnosis: Essential (primary) hypertension[ICD10: I10] Diagnosis: Vitamin D deficiency, unspecified[ICD10: E55.9] Karmen Ash MD, [facility] CPT-4: 94201 07/28/2015 ([id number]) 03688 EST. P ATIENT, LEVEL III Diagnosis: Type 2 diabetes mellitus with hyperglycemia[ICD10: E11.65] Diagnosis: Essential (primary) hypertension[ICD10: I10] Violeta Ash MD, [facility] CPT-4: 26567 05/26/2015 ([id number]) 20822 EST. P ATIENT, LEVEL III Diagnosis: DIABETES TYPE II[ICD9: 250.00] Diagnosis: COPD (chronic obstructive pulmonary disease)[ICD9: 496] Diagnosis: ESSENTIAL HYPERTENSION[ICD9: 401.9] Diagnosis: Cough[ICD9: 786.2] Violeta Ash MD, [facility] CPT-4: 00364 05/06/2015 ([id number]) 11475 EST. P ATIENT, LEVEL III Diagnosis: COPD (chronic obstructive pulmonary disease)[ICD9: 496] Diagnosis: DIABETES TYPE II[ICD9: 250.00] Diagnosis: Muscle ache[ICD9: 729.1] Karmen Ash MD, [facility] CPT- 4: 93224 04/25/2015 ([id number]) [id number] EST. P ATIENT, LEVEL III Diagnosis: ACTINIC KERATOSIS[ICD9: 702.0] Diagnosis: COPD (chronic obstructive pulmonary disease)[ICD9: 496] Diagnosis: DIABETES TYPE II[ICD9: 250.00] Diagnosis: ACUTE URI[ICD9: 465.9] Violeta Ash MD, [facility] CPT-4: 40512 04/12/2015 ([id number]) [id number] EST. P ATIENT, LEVEL III Diagnosis: DIABETES TYPE II[ICD9: 250.00] Violeta Ash MD, [facility] CPT-4: 61070 03/24/2015 ([id number]) [id number] EST. [facility]: DIABETES TYPE II[ICD9: 250.00] Diagnosis: Hypoglycemia[ICD9: 251.2] Diagnosis: Skin texture changes[ICD9: 782.8] Violeta Ash MD, [facility] CPT-4: 80387 03/07/2015 ([id number]) 01416 EST. [facility] Diagnosis: COPD (chronic obstructive pulmonary disease)[ICD9: 496] Diagnosis: Fatigue[ICD9: 780.79] Diagnosis: Insulin dependent diabetes mellitus[ICD9: 250.00] Diagnosis: Unsteady gait[ICD9: 781.2] Maame Ash MD, [facility] CPT-4: 99918 02/17/2015 ([id number]) 01010 EST. [facility] Diagnosis: BPPV (benign paroxysmal positional vertigo)[ICD9: 386.11] Diagnosis: Impacted cerumen[ICD9: 380.4] Diagnosis: ESSENTIAL HYPERTENSION[ICD9: 401.9] Diagnosis: Insulin dependent diabetes mellitus[ICD9: 250.00] Karmen Ash MD, [facility] CPT-4: 68025 12/23/2014 ([id number]) [facility] LEVEL 4 Diagnosis: Insulin dependent diabetes mellitus[ICD9: 250.00] Diagnosis: BPPV (benign paroxysmal positional vertigo)[ICD9: 386.11] Diagnosis: COPD (chronic obstructive pulmonary disease)[ICD9: 496] Diagnosis: Tobacco abuse[ICD9: 305.1] Diagnosis: Osteoarthritis[ICD9: 715.90] [facility] CPT- 4: 98822 12/09/2014 Plan of Care Planned Activity Notes C odes Status Date Appointment: Injection 07/16/2018 Patient Education: Patient Medication [...] care surrogate. 06/30/2018 Appointment: Karmen Espinal WPtel: [phone] [place] [address] - Annual Wellness Visit 06/30/2018 Patient Education: [...] in pain. 06/06/2018 Appointment: Karmen Espinal WPtel: [facility]5 [phone] (15 min) Moderate 06/06/2018 Patient Education: [...] 2 months 04/04/2018 Appointment: Karmen Espinal WPtel: [phone] [place] (15 min) Moderate 04/04/2018 Patient Education: Patient Medication Summary Completed 04/04/2018 Care Plan: Cbc With Differential Pending 04/04/2018 Care Plan: Testosterone repeat in 2 months Pending 04/04/2018 App[facility]ment: [facility]el[phone] [place] (15 min) Moderate 03/25/2018 Visit Plan: Low back pain -history of kidney stone-UA negative today -increase fluids and call if pain does not resolve or if any worse. 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 01/30/2018 Appointment: Karmen Espinal WPtel: [phone] (15 min) Moderate 01/30/2018 Patient Education: Patient Medication Summary Completed 01/30/2018 Appointment: Karmen Espinal WPtel: [phone] (15 min) Moderate 01/28/2018 Appointment: [place] 01/17/2018 Patient Education: Patient Medication Summary Completed 01/17/2018 Visit Plan: Cellulitis - start oral antibiotics as directed, return to clinic as previously directed, call for acute change in symptoms, worsening redness, warmth, discharge. 01/14/2018 Appointment: Karmen Espinal WPtel: [phone] (10 min) Simple 01/14/2018 Patient Education: [...] less controlled. 01/13/2018 Appointment: Karmen Espinal WPtel: [address] (15 min) Moderate 01/13/2018 Patient Education: Patient Medication Summary Completed 01/13/2018 Referral: Hugo Villatoro HPtel:[phone] Patient's informed. Referral info ned [place]. [...] change in blood pressure readings at home. Hoxqcuda-fmrkze-sbgqg to see Dr Villatoro Constipation-start linzess daily 11/19/2017 Appointment: Karmen Espinal WPtel: [facility]8 [place] [phone] (30 min) Complex 11/19/2017 Patient Education: Patient Medication Summary Completed 11/19/2017 Care Plan: Referral Order bloating, nausea SNOMED-CT : 024424475 Pending 11/19/2017 Visit Plan: Low back pain- [...] acute changes. 10/02/2017 Appointment: Brunilda Maravilla WPtel: [address] [place], [place] [id number] (15 min) Moderate 10/02/2017 Patient Education: Patient [...] controlled. 07/23/2017 Appointment: Karmen Espinal WPtel: [phone] [phone] (30 min) Complex 07/23/2017 Patient Education: [...] history 04/25/2017 Appointment: [facility]Ptel[phone] (30 min) Complex 04/25/2017 Patient [...] readings are starting to become less controlled. Temaic-iigoqeo-tlnss labs 02/19/2017 Appointment: Karm[facility] Espinal WPtel[phone] (30 min) Complex 02/19/2017 Patient [...] month 01/21/2017 Appointment: [facility] Espinal WPtel[phone] (30 min) Complex 01/21/2017 Patient Education: Patient Medication Summary Completed 01/21/2017 Patient Education: Smoking and Tobacco Addiction Completed 01/21/2017 Patient Education: Hypertension Completed 01/21/2017 Care Plan: Referral Order SNOMED-CT : 216157996 Pending 01/21/2017 Visit Plan: Diabetes Mellitus - [...] Completed 12/20/2016 Appointment: Karmen Espinal WPtel: [phone] [phone] (30 min) Complex 09/06/2016 Visit Plan: [...] level 08/23/2016 Appointment: Karmen Espinal WPtel: [phone] [phone] (30 min) Complex 08/23/2016 Patient [...] acute changes. 05/22/2016 Appointment: Karmen Espinal WPtel: [phone] (30 min) Complex 05/22/2016 Patient Education: Patient Medication Summary Completed 05/22/2016 Patient Education: Smoking and Tobacco Addiction Completed 05/22/2016 Care Plan: Cbc With Differential Ordered 05/22/2016 Care Plan: %Hba1C LOIN C : 14201-9 Ordered 05/22/2016 Care Plan: Tsh Ordered 05/22/2016 [...] with update 02/24/2016 Appointment: Karmen Espinal WPtel: [phone] (30 min) Complex 02/24/2016 Patient [...] this regimen. 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 Dvzrslbh-kyzhuhpe-EOPQ SIMVASTATIN X 2 WEEKS AND CALL WITH [...] Care Plan: COMPLETE CBC AUTOMATED LOINC : 49454-1 Ordered 03/24/2015 Visit Plan: Diabetes Mellitus - [...] for removal. 03/07/2015 Appointment: Violeta Ash WPtel: [phone] (15 min) Moderate 03/07/2015 Patient Education: Patient [...] Care Plan: COMPLETE CBC AUTOMATED LOINC : 33660-2 Ordered 12/23/2014 Visit Plan: BPPV - Benign [...] appt 12/09/2014 Appointment: Karmen Espinal WPtel: [phone] [phone] [place] ([place]) New Patient 12/09/2014 Patient Education: Patient Medication Summary Completed 12/09/2014 Patient Education: .Amazing charts Parox ysmal positional vertigo Completed 12/09/2014 Patient Education: Smoking and Tobacco Addiction Completed 12/09/2014 Referral: Hugo Villatoro HPtel:[phone] [facility] [place] Referral Appointment Requested Referral: [...] referral to Dr. Donohue for removal. . Cellulitis - start oral antibiotics as [...] readings are starting to become less controlled. Brzshi-kxzipsl-nixgx labs . COPD -recent pneum onia-symptoms have [...] is stable, monitor for acute changes. . Cerumen Impaction - The impacted cerumen [...] change in blood pressure readings at home. Nchyfiog-lqimpl-phkka to see Dr Villatoro Constipation-start linzess daily [...] POTENTIAL SIDE EFFECTS AND WORSENING OF SYMPTOMS. Ntborkdq-duqdcxtc-VKTA SIMVASTATIN X 2 WEEKS AND CALL WITH UPDATE Miralax 1 packet laron ry other day. [...] symptoms not improved on this regimen. . Fatigue, Unsteady Gait, Dizziness- Check labs [...]
--- OUTSIDE RECORDS SUMMARY | 2020-03-29 09:33 | XMS REPORT | CCD ---
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 Name Role Phone PP Unavailable CCM Unavailable Summary Purpose Interface Exchange Insurance Providers Payer name Policy type / Coverage type Covered constitution party ID Effective Begin Date Effective End Date WPS Medicare Part B Medicare Part B [id number] Unknown Unknown [employer] Medicar e Part B [id number] Unknown Unkn own Family history Father Diagnosis Age At Onset Cancer Unknown Mother Diagnosis Age At Onset Cancer Unknown Social History Social History Element Codes Description Effective Dates Marital status Unknown M arried 12/09/2014 Employment Unknown Retir ed 12/09/[address]: 90949986 Currently smokes tobacco 12/09/2014 Number of years using tobacco Unknown > 50 12/09/2014 Number of cigarettes/day Unknown 30 (Pack and a half) 12/09/[address]: 779230276 Never drinks alcohol 12/09/2014 Allergies, Adverse Reactions, Alerts Substance Reaction Codes Entered Date Inactivated Date Status * OTHER REACTION - S EE ANSWER BOX ceftin- c-dif Unknown No Inactive Date Active * NO KNOWN FOOD TAYLOR RGIES Unknown 12/09/2014 No Inactive Date Active Past Medical History Illness Codes Condition Status Onset Date Resolved Date Encounter for genera l adult medical examination with abnormal findings ICD-9: V70.0 ICD-10: Z00.01 Active 06/30/2018 Unknown Testicular dysfuncti on, unspecified ICD-9: 257.9 ICD-10: E29.9 Active 01/17/2018 Unknown Cellulitis of face ICD- 9: 682.0 [...] Condition Codes Effectiv e Dates Condition Status Encounter for genera l adult medical examination with abnormal findings ICD-9: V70.0 ICD-10: Z00.01 06/30/2018 Active Testicular dysfuncti on, unspecified ICD-9: 257.9 ICD-10: E29.9 01/17/2018 Active Cellulitis of face ICD- 9: 682.0 [...] Fill Instructions Xanax 0.5 mg tablet RxNorm: 680190 1 Tablet(s) PO TID 06/27/2018 08/25/2018 Active testosterone cypiona te 200 mg/mL intramuscular oil RxNorm: 446389 Milliliter(s) IM 06/24/2018 06/24/2018 In active hydrocodone 5 mg-linh taminophen 325 mg tablet RxNorm: 085109 1 Tablet(s) PO Q6-8H as needed 06/23/2018 07/17/2018 Active testosterone cypiona te 200 mg/mL intramuscular oil RxNorm: 468278 Milliliter(s) IM 06/13/2018 06/13/2018 In active testosterone cypiona te 200 mg/mL intramuscular oil RxNorm: 055697 Milliliter(s) IM 06/05/2018 06/05/2018 In active testosterone cypiona te 200 mg/mL intramuscular oil RxNorm: 602690 1/2 Milliliter(s) IM weekly 05/30/2018 09/26/2018 Active testosterone cypiona te 200 mg/mL intramuscular oil RxNorm: 186538 Milliliter(s) IM 05/30/2018 05/30/2018 In active testosterone cypiona te 200 mg/mL intramuscular oil RxNorm: 948139 Milliliter(s) IM 05/22/2018 05/22/2018 In active hydrocodone 5 mg-linh taminophen 325 mg tablet RxNorm: 510235 1 Tablet(s) PO Q6-8H as needed 05/20/2018 06/13/2018 Inactive testosterone cypiona te 200 mg/mL intramuscular oil RxNorm: 972010 1/2 Milliliter(s) IM 05/12/2018 05/12/2018 Inactive testosterone cypiona te 200 mg/mL intramuscular oil RxNorm: 994623 Milliliter(s) IM 05/02/2018 05/02/2018 In active testosterone cypiona te 200 mg/mL intramuscular oil RxNorm: 164450 1/2 Milliliter(s) IM weekly 04/24/2018 05/29/2018 Inactive testosterone cypiona te 200 mg/mL intramuscular oil RxNorm: 744167 0.5 Milliliter(s) IM 04/24/2018 04/24/2018 Inactive hydrocodone 5 mg-linh taminophen 325 mg tablet RxNorm: 906276 1 Tablet(s) PO Q6-8H as needed 04/22/2018 05/16/2018 Inactive testosterone cypiona te 200 mg/mL intramuscular oil RxNorm: 767662 1/2 Milliliter(s) IM 04/17/2018 04/17/2018 Inactive testosterone cypiona te 200 mg/mL intramuscular oil RxNorm: 590138 1/2 Milliliter(s) IM weekly 04/16/2018 04/23/2018 Inactive Jardiance 10 mg tablet RxNorm: 9745613 1 Tablet(s) PO daily 04/04/2018 12/29/2018 Active Protonix 40 mg table t,delayed release RxNorm: 031989 1 Tablet(s) PO daily TAKE 1 TABLET BY MOUTH DAILY 04/04/2018 03/29/2019 Active - Ref: [id number] testosterone cypiona te 200 mg/mL intramuscular oil RxNorm: 632174 1 Milliliter(s) IM monthly 04/04/2018 04/15/2018 Inactive hydrocodone 5 mg-linh taminophen 325 mg tablet RxNorm: 687539 1 Tablet(s) PO Q6-8H as needed 03/19/2018 04/12/2018 Inactive Flomax 0.4 mg capsule RxNorm: 798694 1 Capsule(s) PO daily 03/10/2018 03/04/2019 Active Urecholine 25 mg tablet RxNorm: 194407 1 Tablet(s) PO BID 03/10/2018 07/07/2018 Active ketorolac 60 mg/2 mL intramuscular solution RxNorm: 5245784 Milliliter(s) IM 03/07/2018 03/07/2018 In active metformin 500 mg tablet RxNorm: 414332 Tablet(s) TAKE 1 TABLET BY MOUTH DAILY 02/20/2018 02/14/2019 Ac tive 1 q am and 1/2 tab q pm hydrocodone 5 mg-linh taminophen 325 mg tablet RxNorm: 299336 1 Tablet(s) PO Q6-8H as needed 02/20/2018 03/16/2018 Inactive Kenalog 40 mg/mL bartolome pension for injection RxNorm: 7111898 1.5 Milliliter(s) In j 01/30/2018 01/30/2018 In active hydrocodone 5 mg-linh taminophen 325 mg tablet RxNorm: 167931 1 Tablet(s) PO Q6-8H as needed 01/23/2018 02/16/2018 Inactive Urecholine 25 mg tablet RxNorm: 900289 1 Tablet(s) PO BID 01/22/2018 03/09/2018 Inactive Flomax 0.4 mg capsule RxNorm: 824281 1 Capsule(s) PO daily 01/22/2018 03/09/2018 Inactive Flomax 0.4 mg capsule RxNorm: 403825 1 Capsule(s) PO daily 01/22/2018 01/21/2018 Inactive Urecholine 25 mg tablet RxNorm: 148607 1 Tablet(s) PO BID 01/22/2018 01/21/2018 Inactive testosterone cypiona te 200 mg/mL intramuscular oil RxNorm: 770511 Milliliter(s) IM 01/17/2018 01/17/2018 In active testosterone cypiona te 200 mg/mL intramuscular oil RxNorm: 610522 1 Milliliter(s) IM monthly 01/17/2018 04/03/2018 Inactive lisinopril 10 mg tablet RxNorm: 545270 TAKE 1 TABLET BY MOUTH TWO TIMES DAILY 01/14/2018 01/08/2019 Ac tive - First Attempt Ref: [id number] doxycycline hyclate 100 mg tablet RxNorm: 432080 1 Tablet(s) PO BID 01/14/2018 01/23/2018 Inactive Xanax 0.5 mg tablet RxNorm: 726136 1 Tablet(s) PO TID 01/08/2018 04/06/2018 Inactive nystatin 100,000 uni t/mL oral suspension RxNorm: 452686 4 Milliliter(s) PO QI D Swish and swallow 01/08/2018 01/07/2018 Inactive nystatin 100,000 uni t/mL oral suspension RxNorm: 153481 4 Milliliter(s) PO QI D Swish and swallow 01/08/2018 01/12/2018 Inactive simvastatin 40 mg ta blet RxNorm: 454930 TAKE 1 TABLET BY MOUT H DAILY AT BEDTIME 12/30/2017 12/24/2018 Ac tive - First Attempt Ref: [id number] metformin 500 mg tablet RxNorm: 086134 TAKE 1 TABLET BY MOUTH DAILY 12/30/2017 02/19/2018 Inactive - First Attempt Ref: [id number] hydrocodone 5 mg-linh taminophen 325 mg tablet RxNorm: 895258 1 Tablet(s) PO Q6-8H as needed 12/25/2017 01/18/2018 Inactive Protonix 40 mg table t,delayed release RxNorm: 190301 Tablet(s) TAKE 1 TABL ET BY MOUTH DAILY 11/20/2017 04/03/2018 Inactive - Ref: [id number] Linzess 72 mcg capsule RxNorm: 9745074 1 Capsule(s) PO daily 11/19/2017 No Stop Date Active hydrocodone 5 mg-linh taminophen 325 mg tablet RxNorm: 666151 1 Tablet(s) PO Q6-8H as needed 11/19/2017 12/13/2017 Inactive hydrocodone 5 mg-linh taminophen 325 mg tablet RxNorm: 118206 1 Tablet(s) PO Q6-8H as needed 10/28/2017 11/18/2017 Inactive Xanax 0.5 mg tablet RxNorm: 250628 1 Tablet(s) PO TID 10/25/2017 12/22/2017 Inactive Xanax 0.5 mg tablet RxNorm: 874767 TAKE ONE TABLET BY MOUTH THREE TIMES A D AY 10/24/2017 12/22/2017 In active hydrocodone 5 mg-linh taminophen 325 mg tablet RxNorm: 733566 1 Tablet(s) PO Q6-8H as needed 09/30/2017 10/24/2017 Inactive Protonix 40 mg table t,delayed release RxNorm: 396593 TAKE 1 TABLET BY MOUT H DAILY 09/16/2017 11/19/2017 In active - Ref: [id number] Yovana Perkins 300 unit/mL (1.5 mL) subcutaneous insulin pen RxNorm: 6947223 35 Unit(s) SQ QHS 08/30/2017 No Stop Date Active dosage increase hydrocodone 5 mg-linh taminophen 325 mg tablet RxNorm: 062741 1 Tablet(s) PO Q6-8H as needed 08/28/2017 09/29/2017 Inactive hydrocodone 5 mg-linh taminophen 325 mg tablet RxNorm: 206521 1 Tablet(s) PO Q6-8H as needed 07/23/2017 08/24/2017 Inactive lisinopril 10 mg tablet RxNorm: 335009 1 Tablet(s) PO BID Take 1 tablet by mout h daily 07/23/2017 01/13/2018 Inactive hydrocodone 5 mg-linh taminophen 325 mg tablet RxNorm: 610720 1 Tablet(s) PO Q6-8H as needed 06/27/2017 07/22/2017 Inactive Xanax 0.5 mg tablet RxNorm: 318308 1 Tablet(s) PO TID 06/18/2017 10/25/2017 Inactive hydrocodone 5 mg-linh taminophen 325 mg tablet RxNorm: 606727 1 Tablet(s) PO Q6-8H as needed 05/27/2017 06/26/2017 Inactive Levaquin 500 mg tablet RxNorm: 138985 1 Tablet(s) PO daily 05/24/2017 05/23/2017 Inactive Levaquin 500 mg tablet RxNorm: 279041 1 Tablet(s) PO daily 05/24/2017 05/30/2017 Inactive Protonix 40 mg table t,delayed release RxNorm: 582663 Take 1 tablet by mout h daily 04/29/2017 09/15/2017 In active - Ref: [id number] hydrocodone 5 mg-linh taminophen 325 mg tablet RxNorm: 573634 1 Tablet(s) PO Q6-8H as needed 04/25/2017 05/26/2017 Inactive metformin 500 mg tablet RxNorm: 032690 Take 1 tablet by mouth daily 04/08/2017 12/29/2017 Inactive - First Attempt Ref: [id number] hydrocodone 5 mg-linh taminophen 325 mg tablet RxNorm: 312726 1 Tablet(s) PO Q6-8H as needed 03/27/2017 04/24/2017 Inactive hydrocodone 5 mg-linh taminophen 325 mg tablet RxNorm: 271874 1 Tablet(s) PO Q6-8H as needed 02/25/2017 03/26/2017 Inactive Protonix 40 mg table t,delayed release RxNorm: 328837 Tablet(s) Take 1 tabl et by mouth BID 02/25/2017 04/28/2017 Inactive Protonix 40 mg table t,delayed release RxNorm: 608657 Tablet(s) Take 1 tabl et by mouth BID 02/19/2017 02/18/2017 Inactive Protonix 40 mg table t,delayed release RxNorm: 477540 Tablet(s) Take 1 tabl et by mouth BID 02/19/2017 02/24/2017 Inactive lisinopril 10 mg tablet RxNorm: 362107 Take 1 tablet by mouth daily 01/29/2017 07/22/2017 Inactive - First Attempt Ref: [id number] hydrocodone 5 mg-linh taminophen 325 mg tablet RxNorm: 800168 1 Tablet(s) PO Q6-8H as needed 01/25/2017 02/24/2017 Inactive simvastatin 40 mg ta blet RxNorm: 112665 Tablet(s) Take 1 tabl et by mouth daily at bedtime 01/03/2017 12/28/2017 Inactive lisinopril 10 mg tablet RxNorm: 748386 Tablet(s) Take 1 tablet by mouth daily 01/03/2017 01/28/2017 In active Protonix 40 mg table t,delayed release RxNorm: 143417 Tablet(s) Take 1 tabl et by mouth daily 12/28/2016 02/18/2017 Inactive hydrocodone 5 mg-linh taminophen 325 mg tablet RxNorm: 735866 1 Tablet(s) PO Q6-8H as needed 12/26/2016 01/24/2017 Inactive Xanax 0.5 mg tablet RxNorm: 890327 1 Tablet(s) PO TID 12/12/2016 03/11/2017 Inactive simvastatin 40 mg ta blet RxNorm: 092057 Tablet(s) Take 1 tabl et by mouth daily at bedtime 11/30/2016 01/02/2017 Inactive simvastatin 40 mg ta blet RxNorm: 002376 Take 1 tablet by mout h daily at bedtime 11/29/2016 11/29/2016 In active - First Attempt Ref: [id number] Protonix 40 mg table t,delayed release RxNorm: 422400 Take 1 tablet by mout h daily 11/27/2016 12/27/2016 In active - First Attempt Ref: [id number] hydrocodone 5 mg-linh taminophen 325 mg tablet RxNorm: 851865 1 Tablet(s) PO Q6-8H as needed 11/26/2016 12/25/2016 Inactive hydrocodone 5 mg-linh taminophen 325 mg tablet RxNorm: 325665 1 Tablet(s) PO Q8 as needed 10/24/2016 11/25/2016 Inactive Xanax 0.5 mg tablet RxNorm: 137984 1 Tablet(s) PO TID 10/09/2016 12/25/2016 Inactive hydrocodone 5 mg-linh taminophen 325 mg tablet RxNorm: 544306 1 Tablet(s) PO Q8 as needed 09/27/2016 10/23/2016 Inactive lisinopril 10 mg tablet RxNorm: 789755 Take 1 tablet by mouth daily 09/25/2016 01/02/2017 Inactive - First Attempt Ref: [id number] Vitamin D2 50,000 un it capsule RxNorm: 201396 1 Capsule(s) PO QW 09/06/2016 No Stop Date Active hydrocodone 5 mg-linh taminophen 325 mg tablet RxNorm: 158780 1 Tablet(s) PO Q8 as needed 08/28/2016 09/26/2016 Inactive Toujeo SoloStar 300 unit/mL (1.5 mL) subcutaneous insulin pen RxNorm: 0764030 25 Unit(s) SQ QHS 08/23/2016 08/29/2017 Inactive dosage increase hydrocodone 5 mg-linh taminophen 325 mg tablet RxNorm: 530558 1 Tablet(s) PO Q8 as needed 07/26/2016 08/27/2016 Inactive Protonix 40 mg table t,delayed release RxNorm: 404430 Take 1 tablet by mout h daily 07/24/2016 11/26/2016 In active - First Attempt Ref: [id number] hydrocodone 5 mg-linh taminophen 325 mg tablet RxNorm: 529784 1 Tablet(s) PO Q8 as needed 06/19/2016 07/21/2016 Inactive Toujeo SoloStar 300 unit/mL (1.5 mL) subcutaneous insulin pen RxNorm: 1772142 32 Unit(s) SQ QHS 05/30/2016 08/22/2016 Inactive dosage increase hydrocodone 5 mg-linh taminophen 325 mg tablet RxNorm: 981524 1 Tablet(s) PO Q8 as needed 05/22/2016 06/18/2016 Inactive hydrocodone 5 mg-linh taminophen 325 mg tablet RxNorm: 941539 1 Tablet(s) PO Q8 as needed 04/18/2016 05/17/2016 Inactive Protonix 40 mg table t,delayed release RxNorm: 705209 Take 1 tablet by mout h daily 04/05/2016 07/03/2016 In active - Ref: [id number] metformin 500 mg tablet RxNorm: 507460 Take 1 tablet by mouth daily 04/04/2016 07/02/2016 Inactive - Ref: [id number] Xanax 0.5 mg tablet RxNorm: 833878 1 Tablet(s) PO TID 03/30/2016 09/25/2016 Inactive Xanax 0.5 mg tablet RxNorm: 839248 1 Tablet(s) PO TID 03/23/2016 12/25/2016 Inactive hydrocodone 5 mg-linh taminophen 325 mg tablet RxNorm: 225829 1 Tablet(s) PO Q8 as needed 03/06/2016 04/04/2016 Inactive Cipro 500 mg tablet RxNorm: 085863 1 Tablet(s) PO BID 02/24/2016 03/04/2016 Inactive Miralax 17 gram oral powder packet RxNorm: 248412 1 packet PO every oth er day 01/27/2016 No Stop Date Active hydrocodone 5 mg-linh taminophen 325 mg tablet RxNorm: 285020 1 Tablet(s) PO Q8 as needed 01/27/2016 02/25/2016 Inactive lisinopril 10 mg tablet RxNorm: 939456 1 Tablet(s) PO daily 01/12/2016 09/24/2016 Inactive simvastatin 40 mg ta blet RxNorm: 308556 1 Tablet(s) PO QHS 01/12/2016 11/28/2016 Inactive simvastatin 40 mg ta blet RxNorm: 955611 1 Tablet(s) PO QHS 01/11/2016 01/11/2016 Inactive lisinopril 10 mg tablet RxNorm: 871402 1 Tablet(s) PO daily 01/06/2016 01/11/2016 Inactive simvastatin 40 mg ta blet RxNorm: 970581 1 Tablet(s) PO daily 12/28/2015 01/10/2016 Inactive hydrocodone 5 mg-linh taminophen 325 mg tablet RxNorm: 515800 1 Tablet(s) PO Q8 as needed 12/27/2015 01/26/2016 Inactive Xanax 0.5 mg tablet RxNorm: 588888 1 Tablet(s) PO TID 11/30/2015 03/29/2016 Inactive meclizine 25 mg tablet RxNorm: 966139 1 Tablet(s) PO Q6 PRN TAKE ONE TABLET BY MOUTH EVERY 6 HOURS NEEDED 11/25/2015 02/22/2016 Inactive Toujeo SoloStar 300 unit/mL (1.5 mL) subcutaneous insulin pen RxNorm: 0065430 30 Unit(s) SQ QHS 11/25/2015 05/29/2016 Inactive dosage increase omeprazole 20 mg cap jacquelyn,delayed release RxNorm: 732180 1 Capsule(s) PO daily 10/06/2015 01/26/2016 In active Toujeo SoloStar 300 unit/mL (1.5 mL) subcutaneous insulin pen RxNorm: 4504259 35 Unit(s) SQ QHS 08/02/2015 11/24/2015 Inactive dosage increase Vitamin D2 50,000 un it capsule RxNorm: 951530 1 Capsule(s) PO QW 08/02/2015 09/05/2016 Inactive hydrocodone 5 mg-linh taminophen 325 mg tablet RxNorm: 442999 1 Tablet(s) PO Q8 as needed 07/11/2015 12/26/2015 Inactive Xanax 0.5 mg tablet RxNorm: 508754 1 Tablet(s) PO TID 06/30/2015 06/29/2015 Inactive Xanax 0.5 mg tablet RxNorm: 871071 1 Tablet(s) PO TID 06/30/2015 12/25/2015 Inactive hydrocodone 5 mg-linh taminophen 325 mg tablet RxNorm: 126576 1 Tablet(s) PO Q8 as needed 05/06/2015 07/10/2015 Inactive Symbicort 160 mcg-4. 5 mcg/actuation HFA aerosol inhaler RxNorm: 9237091 INH 04/25/2015 No Stop Date Active Levemir FlexTouch 10 0 unit/mL (3 mL) subcutaneous insulin pen RxNorm: 084221 30 Unit(s) SQ QHS 04/25/2015 11/24/2015 Inactive prednisone 20 mg tablet RxNorm: 193385 1 Tablet(s) PO BID 04/25/2015 04/29/2015 Inactive metformin 500 mg tablet RxNorm: 493116 1 Tablet(s) PO daily 04/25/2015 04/03/2016 Inactive amoxicillin 500 mg c apsule RxNorm: 775788 1 Capsule(s) PO TID 04/14/2015 04/13/2015 Inactive amoxicillin 500 mg c apsule RxNorm: 034226 1 Capsule(s) PO TID a nd recommend probiotic tid (otc) 04/14/2015 04/20/2015 Inactive Kenalog 40 mg/mL bartolome pension for injection RxNorm: 7761881 Milliliter(s) Inj 04/12/2015 04/12/2015 In active hydrocodone 5 mg-linh taminophen 325 mg tablet RxNorm: 876840 1 Tablet(s) PO Q8 as needed 03/30/2015 05/05/2015 Inactive Lantus 100 unit/mL s ubcutaneous solution RxNorm: 272792 25 Unit(s) SQ QPM 03/24/2015 04/25/2015 In active meclizine 25 mg tablet RxNorm: 747824 Tablet(s) TAKE ONE TABLET BY MOUTH EVERY 6 HOURS NEEDED 03/08/2015 04/06/2015 Inactive meclizine 25 mg tablet RxNorm: 890959 TAKE ONE TABLET BY MOUTH EVERY 6 HOURS A S NEEDED 02/25/2015 03/03/2015 Inactive Lantus 100 unit/mL s ubcutaneous solution RxNorm: 567551 20 Unit(s) SQ QPM 02/23/2015 03/23/2015 In active Lantus 100 unit/mL s ubcutaneous solution RxNorm: 594326 25 Unit(s) SQ QPM 02/23/2015 02/22/2015 In active hydrocodone 5 mg-linh taminophen 325 mg tablet RxNorm: 172987 1 Tablet(s) PO Q8 as needed 02/17/2015 03/29/2015 Inactive Xanax 0.5 mg tablet RxNorm: 045985 1 Tablet(s) PO TID 02/03/2015 06/29/2015 Inactive Lantus 100 unit/mL s ubcutaneous solution RxNorm: 955385 20 Unit(s) SQ QPM 12/29/2014 02/22/2015 In active Phenergan 12.5 mg re ctal suppository RxNorm: 774108 1 Suppository RTL Q6 PRN 12/23/2014 No Stop Date Active nausea Kenalog 40 mg/mL bartolome pension for injection RxNorm: 6421234 Milliliter(s) Inj 12/23/2014 12/23/2014 In active prednisone 20 mg tablet RxNorm: 827497 2 Tablet(s) PO daily 12/13/2014 12/17/2014 Inactive prednisone 20 mg tablet RxNorm: 480993 2 Tablet(s) PO daily 12/13/2014 12/12/2014 Inactive meclizine 25 mg tablet RxNorm: 676831 1 Tablet(s) PO Q6 PRN 12/09/2014 02/24/2015 Inactive hydrocodone 5 mg-linh taminophen 325 mg tablet RxNorm: 633892 1 Tablet(s) PO Q8 as needed 12/09/2014 02/16/2015 Inactive Vitamin B-12 1,000 m cg/mL oral drops RxNorm: 5113057 1 Milliliter(s) PO d aily No Start Date Active Alphagan P 0.1 % eye drops RxNorm: 347238 1 Drop(s) OPH BID No Start Date Active aspirin 325 mg table t,delayed release RxNorm: 654206 1 Tablet(s) PO daily No Start Date Active Tricor 145 mg tablet RxNorm: 768818 1 Tablet(s) PO daily No Start Date Active vitamin [id number] B1 oral liquid RxNorm: 1,000 Microgram(s) PO daily No Start Date Active atenolol 50 mg tablet RxNorm: 142441 1 Tablet(s) PO daily No Start Date Active Protonix 40 mg table t,delayed release RxNorm: 994119 1 Tablet(s) PO daily No Start Date 04/04/2016 Inactive glipizide 10 mg tablet RxNorm: 560656 1 Tablet(s) PO BID No Start Date 03/22/2015 Inactive Lantus 100 unit/mL s ubcutaneous solution RxNorm: 830569 15 Unit(s) SQ QPM No Start Date 12/28/2014 Inactive lisinopril 10 mg tablet RxNorm: 271299 1 Tablet(s) PO daily No Start Date 01/05/2016 Inactive Vitamin D2 50,000 un it capsule RxNorm: 166553 1 Capsule(s) PO QW No Start Date 08/01/2015 Inactive Toujeo SoloStar 300 unit/mL (1.5 mL) subcutaneous insulin pen RxNorm: 7335790 30 Unit(s) SQ QHS No Start Date 08/01/2015 Inactive simvastatin 40 mg ta blet RxNorm: 570718 1 Tablet(s) PO daily No Start Date 12/27/2015 Inactive testosterone cypiona te 200 mg/mL intramuscular oil RxNorm: 952142 1 Milliliter(s) IM monthly No Start Date 01/16/2018 Inactive hydrocodone 5 mg-linh taminophen 325 mg tablet RxNorm: 502202 1 Tablet(s) PO Q8 as needed No Start Date 12/08/2014 Inactive metformin 500 mg tablet RxNorm: 685689 1 Tablet(s) PO daily No Start Date 04/24/2015 Inactive omeprazole 20 mg cap jacquelyn,delayed release RxNorm: 071354 1 Capsule(s) PO daily No Start Date 10/05/2015 Inactive Flomax 0.4 mg capsule RxNorm: 822163 1 Capsule(s) PO daily No Start Date 03/23/2015 Inactive Medication Administered Medication Codes Instruc tions Start Date Status testosterone cypionate 200 mg/mL intramuscular oil RxNorm: 526720 Milliliter 06/24/2018 No longer Active testosterone cypionate 200 mg/mL intramuscular oil RxNorm: 214926 Milliliter 06/13/2018 No longer Active testosterone cypionate 200 mg/mL intramuscular oil RxNorm: 554733 Milliliter 06/05/2018 No longer Active testosterone cypionate 200 mg/mL intramuscular oil RxNorm: 779893 Milliliter 05/30/2018 No longer Active testosterone cypionate 200 mg/mL intramuscular oil RxNorm: 261348 Milliliter 05/22/2018 No longer Active testosterone cypionate 200 mg/mL intramuscular oil RxNorm: 208580 1/2Milliliter 05/12/2018 No longer Active testosterone cypionate 200 mg/mL intramuscular oil RxNorm: 466898 Milliliter 05/02/2018 No longer Active testosterone cypionate 200 mg/mL intramuscular oil RxNorm: 128573 0.Milliliter 04/24/2018 No longer Active testosterone cypionate 200 mg/mL intramuscular oil RxNorm: 488623 1/2Milliliter 04/17/2018 No longer Active ketorolac 60 mg/2 mL intramuscular solution RxNorm: 2015157 Milliliter 03/07/2018 No longer Active Kenalog 40 mg/mL suspension for injection RxNorm: 0793994 1.5Milliliter 01/30/2018 No longer Active testosterone cypionate 200 mg/mL intramuscular oil RxNorm: 492243 Milliliter 01/17/2018 No longer Active Kenalog 40 mg/mL suspension for injection RxNorm: 9871116 Milliliter 04/12/2015 No longer Active Kenalog 40 mg/mL suspension for injection RxNorm: 0599735 Milliliter 12/23/2014 No longer Active Immunizations Vaccine Codes Date Status Influenza CVX: 141 10/26 /2018 completed Influenza CVX: 141 04/25 completed Pneumococcal (Adult) CVX: 133 04/25/2017 completed Influenza CVX: 141 05/22 completed Assessments Condition Codes Effectiv e Dates Encounter for general adult medical exam ination with abnormal findings ICD-10: Z00.01 ICD-9: V70.0 06/30/2018 Testicular dysfunction, unspecified ICD-10: E29.9 ICD-9: 257.9 06/24/2018 Type 2 diabetes mellitus without complications ICD-10: [...] Item Item Code Result Date Comp Metabolic Qge201 NA 139 mEq/L 04/01/2018 Comp Metabolic Fhg375 K 4.2 mEq/L 04/01/2018 Comp Metabolic Cdo712 CL 102 mEq/L 04/01/2018 Comp Metabolic Qqo276 CO2 29.0 mEq/L 04/01/2018 Comp Metabolic Ktx930 AN ION GAP 12 04/01/2018 Comp Metabolic Uyj686 GL UCOSE 87 mg/dL 04/01/2018 Comp Metabolic Ipb760 Cr eat 1.1 mg/dL 04/01/2018 Comp Metabolic Fmc808 eG FR 70 ml/min/1.73m2 04/01 Comp Metabolic Rsx391 BUN 21 mg/dL 04/01/2018 Comp Metabolic Xns373 B/ C Ratio 19.4 Ratio 04/01/2018 Comp Metabolic Crn506 CA LCIUM 9.1 mg/dL 04/01/2018 Comp Metabolic Yoh004 AL K PHOS 60 U/L 04/01/2018 Comp Metabolic Mgj793 T(SGOT) 15 U/L 04/01/2018 Comp Metabolic Qdu476 AL T(SGPT) 18 U/L 04/01/2018 Comp Metabolic Fwm761 BI LI T 0.4 mg/dL 04/01/2018 Comp Metabolic Lvo962 AL BUMIN 4.0 g/dL 04/01/2018 Comp Metabolic Buq286 TP RO 6.5 g/dL 04/01/2018 Comp Metabolic Cul353 GL OB 2.5 g/dL 04/01/2018 Comp Metabolic Ehn109 A/ G Ratio 1.6 Ratio 04/01/2018 Comp Metabolic Xne612 Os mo 280 mOsmo 04/01/2018 Lipid Ord30 [...] 37.6 % 04/01/2018 Cbc With Differential Ord2 MCV 101.6 fl 04/01/2018 Cbc With Differential Ord2 Lymph% 35.4 % 04/01/2018 Cbc With Differential Ord2 MCH 34.3 pg 04/01/2018 Cbc With Differential Ord2 Chambers% 6.0 % 04/01/2018 Cbc With Differential Ord2 [...] 3.25 K/ul 04/01/2018 Cbc With Differential Ord2 Chambers ABS# 0.6 K/ul 04/01/2018 Cbc With Differential Ord2 Eos ABS# 0.4 K/ul 04/01/2018 Cbc With Differential Ord2 Baso ABS# 0.0 K/ul 04/01/2018 %Hba1C Zqc700 % HbA1c 81181-4 8.0 % 04/01/2018 %Hba1C Ztr631 Gluc Ave 183 mg/dL 04/01/2018 Testosterone Mkw198 Testo 111.3 ng/dL 04/01/2018 Testosterone Tnz044 Testo 135.4 ng/dL 01/14/2018 Cbc With Differential [...] 36.0 pg 01/14/2018 Cbc With Differential Ord2 Chambers% 6.8 % 01/14/2018 Cbc With Differential Ord2 [...] 2.71 K/ul 01/14/2018 Cbc With Differential Ord2 Chambers ABS# 0.8 K/ul 01/14/2018 Cbc With Differential Ord2 Eos ABS# 0.2 K/ul 01/14/2018 Cbc With Differential Ord2 Baso ABS# 0.0 K/ul 01/14/2018 Comp Metabolic Rup394 NA 134 mEq/L 11/20/2017 Comp Metabolic Oto816 K 4.4 mEq/L 11/20/2017 Comp Metabolic Lnx071 CL 99 mEq/L 11/20/2017 Comp Metabolic Hom870 CO2 29.0 mEq/L 11/20/2017 Comp Metabolic Zok325 AN ION GAP 10 11/20/2017 Comp Metabolic Mam554 GL UCOSE 218 mg/dL 11/20/2017 Comp Metabolic Mda730 Cr eat 1.0 mg/dL 11/20/2017 Comp Metabolic Yyh033 eG FR 78 ml/min/1.73m2 11/20 Comp Metabolic Uix828 BUN 13 mg/dL 11/20/2017 Comp Metabolic Yei784 B/ C Ratio 13.3 Ratio 11/20/2017 Comp Metabolic Uyb520 CA LCIUM 9.0 mg/dL 11/20/2017 Comp Metabolic Kvi685 AL K PHOS 71 U/L 11/20/2017 Comp Metabolic Psv570 T(SGOT) 18 U/L 11/20/2017 Comp Metabolic Awz121 AL T(SGPT) 17 U/L 11/20/2017 Comp Metabolic Otv305 BI LI T 0.4 mg/dL 11/20/2017 Comp Metabolic Vbz184 AL BUMIN 4.1 g/dL 11/20/2017 Comp Metabolic Prt943 TP RO 6.5 g/dL 11/20/2017 Comp Metabolic Hah103 GL OB 2.4 g/dL 11/20/2017 Comp Metabolic Twb901 A/ G Ratio 1.8 Ratio 11/20/2017 Comp Metabolic Tnx425 Os mo 275 mOsmo 11/20/2017 Cbc With Differential Ord2 WBC 8.14 K/ul 11/20/2017 Cbc With Differential Ord2 RBC 3.38 M/ul 11/20/2017 Cbc With Differential Ord2 HGB 11.9 g/dl 11/20/2017 Cbc With Differential Ord2 Neut% 48.2 % 11/20/2017 Cbc With Differential Ord2 HCT 34.9 % 11/20/2017 Cbc With Differential Ord2 MCV 103.3 fl 11/20/2017 Cbc With Differential Ord2 Lymph% 41.0 % 11/20/2017 Cbc With Differential Ord2 MCH 35.2 pg 11/20/2017 Cbc With Differential Ord2 Chambers% 7.2 % 11/20/2017 Cbc With Differential Ord2 [...] 3.34 K/ul 11/20/2017 Cbc With Differential Ord2 Chambers ABS# 0.6 K/ul 11/20/2017 Cbc With Differential Ord2 Eos ABS# 0.3 K/ul 11/20/2017 Cbc With Differential Ord2 Baso ABS# 0.0 K/ul 11/20/2017 Vitamin D 25 Oh Otj3062 VITAMIN D, 25 HYDROXY 43.72 ng/mL 11/20/2017 %Hba1C Fiv361 % HbA1c 12395-5 7.4 % 11/20/2017 %Hba1C Hdz329 Gluc Ave 166 mg/dL 11/20/2017 %Hba1C Vnq845 % HbA1c 16249-7 7.2 % 08/20/2017 %Hba1C Rel294 Gluc Ave 160 mg/dL 08/20/2017 Lipid Ord30 [...] 34.7 pg 08/20/2017 Cbc With Differential Ord2 Chambers% 7.6 % 08/20/2017 Cbc With Differential Ord2 Eos% 3.4 % 08/20/2017 Cbc With Differential Ord2 MCHC 33.7 pg 08/20/2017 Cbc With Differential Ord2 PLT 215 K/ul 08/20/2017 Cbc With Differential Ord2 Baso% 0.2 % 08/20/2017 Cbc With Differential Ord2 Neut ABS# 4.97 K/ul 08/20/2017 Cbc With Differential Ord2 RDW 14.0 % 08/20/2017 Cbc With Differential Ord2 Lymph ABS# 2.42 K/ul 08/20/2017 Cbc With Differential Ord2 Chambers ABS# 0.6 K/ul 08/20/2017 Cbc With Differential Ord2 Eos ABS# 0.3 K/ul 08/20/2017 Cbc With Differential Ord2 Baso ABS# 0.0 K/ul 08/20/2017 Tsh Ord6 hTSH II 2.27 uIU/mL 08/20/2017 Comp Metabolic Bzb458 NA 138 mEq/L 08/20/2017 Comp Metabolic Vpk016 K 4.3 mEq/L 08/20/2017 Comp Metabolic Wwl718 CL 102 mEq/L 08/20/2017 Comp Metabolic Iml722 CO2 29.0 mEq/L 08/20/2017 Comp Metabolic Xcs017 AN ION GAP 11 08/20/2017 Comp Metabolic Enw009 GL UCOSE 89 mg/dL 08/20/2017 Comp Metabolic Kfr391 Cr eat 1.0 mg/dL 08/20/2017 Comp Metabolic Cca083 eG FR 80 ml/min/1.73m2 08/20 Comp Metabolic Zsk360 BUN 13 mg/dL 08/20/2017 Comp Metabolic Dqv965 B/ C Ratio 13.5 Ratio 08/20/2017 Comp Metabolic Gnl421 CA LCIUM 9.2 mg/dL 08/20/2017 Comp Metabolic Rrx438 AL K PHOS 69 U/L 08/20/2017 Comp Metabolic Lqi987 T(SGOT) 18 U/L 08/20/2017 Comp Metabolic Pdw766 AL T(SGPT) 19 U/L 08/20/2017 Comp Metabolic Moz317 BI LI T 0.6 mg/dL 08/20/2017 Comp Metabolic Xze802 AL BUMIN 4.0 g/dL 08/20/2017 Comp Metabolic Idr790 TP RO 6.6 g/dL 08/20/2017 Comp Metabolic Xay861 GL OB 2.6 g/dL 08/20/2017 Comp Metabolic Der924 A/ G Ratio 1.5 Ratio 08/20/2017 Comp Metabolic Mem605 Os mo 275 mOsmo 08/20/2017 Vitamin D 25 Oh Yxi7004 VITAMIN D, 25 HYDROXY 30.96 ng/mL 08/20/2017 B12 Sgc376 B12 >1500.00 pg/ml 02/22/2017 Cbc With Differential [...] 106.5 fl 02/20/2017 Cbc With Differential Ord2 Chambers% 6.3 % 02/20/2017 Cbc With Differential Ord2 MCH 35.7 pg 02/20/2017 Cbc With Differential Ord2 MCHC 33.5 pg 02/20/2017 Cbc With Differential Ord2 Eos% 4.6 % 02/20/2017 Cbc With Differential Ord2 PLT 205 K/ul 02/20/2017 Cbc With Differential Ord2 Baso% 0.4 % 02/20/2017 Cbc With Differential Ord2 RDW 14.9 % 02/20/2017 Cbc With Differential Ord2 Neut ABS# 4.37 K/ul 02/20/2017 Cbc With Differential Ord2 Lymph ABS# 3.19 K/ul 02/20/2017 Cbc With Differential Ord2 Chambers ABS# 0.5 K/ul 02/20/2017 Cbc With Differential Ord2 Eos ABS# 0.4 K/ul 02/20/2017 Cbc With Differential Ord2 Baso ABS# 0.0 K/ul 02/20/2017 Comp Metabolic Eas215 NA 138 mEq/L 02/20/2017 Comp Metabolic Wkt062 K 4.5 mEq/L 02/20/2017 Comp Metabolic Its362 CL 101 mEq/L 02/20/2017 Comp Metabolic Vkg051 CO2 31.0 mEq/L 02/20/2017 Comp Metabolic Gmn939 AN ION GAP 11 02/20/2017 Comp Metabolic Dqe480 GL UCOSE 120 mg/dL 02/20/2017 Comp Metabolic Yqr387 Cr eat 0.9 mg/dL 02/20/2017 Comp Metabolic Vfv495 eG FR 83 ml/min/1.73m2 02/20 Comp Metabolic Unb866 BUN 15 mg/dL 02/20/2017 Comp Metabolic Hxd112 B/ C Ratio 16.1 Ratio 02/20/2017 Comp Metabolic Nkl684 CA LCIUM 9.1 mg/dL 02/20/2017 Comp Metabolic Tsf618 AL K PHOS 67 U/L 02/20/2017 Comp Metabolic Mkp035 T(SGOT) 15 U/L 02/20/2017 Comp Metabolic Jdn673 AL T(SGPT) 16 U/L 02/20/2017 Comp Metabolic Ukx273 BI LI T 0.5 mg/dL 02/20/2017 Comp Metabolic Gzr912 AL BUMIN 4.0 g/dL 02/20/2017 Comp Metabolic Pjx555 TP RO 6.4 g/dL 02/20/2017 Comp Metabolic Lmx883 GL OB 2.4 g/dL 02/20/2017 Comp Metabolic Mwn628 A/ G Ratio 1.7 Ratio 02/20/2017 Comp Metabolic Ogw869 Os mo 278 mOsmo 02/20/2017 Tsh Ord6 hTSH II 2.05 uIU/mL 02/20/2017 %Hba1C Hjt564 % HbA1c 14754-9 7.6 % 02/20/2017 %Hba1C Yyl900 Gluc Ave 171 mg/dL 02/20/2017 Vitamin D 25 Oh Szb2986 VITAMIN D, 25 HYDROXY 44.40 ng/mL 12/21/2016 Comp Metabolic Kyr202 NA 131 mEq/L 12/21/2016 Comp Metabolic Zrt013 K 4.2 mEq/L 12/21/2016 Comp Metabolic Mhh722 CL 97 mEq/L 12/21/2016 Comp Metabolic Cus424 CO2 27.0 mEq/L 12/21/2016 Comp Metabolic Ioa102 AN ION GAP 11 12/21/2016 Comp Metabolic Qxr020 GL UCOSE 266 mg/dL 12/21/2016 Comp Metabolic Coh601 Cr eat 0.9 mg/dL 12/21/2016 Comp Metabolic Vzb784 eG FR 88 ml/min/1.73m2 12/21 Comp Metabolic Rwm874 BUN 12 mg/dL 12/21/2016 Comp Metabolic Clc825 B/ C Ratio 13.6 Ratio 12/21/2016 Comp Metabolic Inx856 CA LCIUM 8.6 mg/dL 12/21/2016 Comp Metabolic Jtk266 AL K PHOS 69 U/L 12/21/2016 Comp Metabolic Wca715 T(SGOT) 15 U/L 12/21/2016 Comp Metabolic Sth909 AL T(SGPT) 14 U/L 12/21/2016 Comp Metabolic Jyk977 BI LI T 0.3 mg/dL 12/21/2016 Comp Metabolic Ort334 AL BUMIN 3.7 g/dL 12/21/2016 Comp Metabolic Rvj852 TP RO 5.9 g/dL 12/21/2016 Comp Metabolic Die079 GL OB 2.2 g/dL 12/21/2016 Comp Metabolic Osj574 A/ G Ratio 1.7 Ratio 12/21/2016 Comp Metabolic Vxz290 Os mo 272 mOsmo 12/21/2016 Cbc With [...] 34.6 pg 12/21/2016 Cbc With Differential Ord2 Chambers% 6.9 % 12/21/2016 Cbc With Differential Ord2 [...] 2.05 K/ul 12/21/2016 Cbc With Differential Ord2 Chambers ABS# 0.4 K/ul 12/21/2016 Cbc With Differential Ord2 Eos ABS# 0.2 K/ul 12/21/2016 Cbc With Differential Ord2 Baso ABS# 0.0 K/ul 12/21/2016 Comp Metabolic Lbk394 NA 138 mEq/L 09/03/2016 Comp Metabolic Sfx351 K 4.5 mEq/L 09/03/2016 Comp Metabolic Onb542 CL 102 mEq/L 09/03/2016 Comp Metabolic Kuu110 CO2 30.0 mEq/L 09/03/2016 Comp Metabolic Zzx699 AN ION GAP 11 09/03/2016 Comp Metabolic Qwi388 GL UCOSE 113 mg/dL 09/03/2016 Comp Metabolic Lzg054 Cr eat 1.0 mg/dL 09/03/2016 Comp Metabolic Zsb082 eG FR 81 ml/min/1.73m2 09/03 Comp Metabolic Tjl787 BUN 10 mg/dL 09/03/2016 Comp Metabolic Fxe940 B/ C Ratio 10.5 Ratio 09/03/2016 Comp Metabolic Zse913 CA LCIUM 9.1 mg/dL 09/03/2016 Comp Metabolic Rzx082 AL K PHOS 71 U/L 09/03/2016 Comp Metabolic Tgp059 T(SGOT) 18 U/L 09/03/2016 Comp Metabolic Ajz639 AL T(SGPT) 17 U/L 09/03/2016 Comp Metabolic Vde593 BI LI T 0.6 mg/dL 09/03/2016 Comp Metabolic Tdm843 AL BUMIN 4.1 g/dL 09/03/2016 Comp Metabolic Wwg336 TP RO 6.4 g/dL 09/03/2016 Comp Metabolic Ywt969 GL OB 2.3 g/dL 09/03/2016 Comp Metabolic Xlh901 A/ G Ratio 1.8 Ratio 09/03/2016 Comp Metabolic Nun620 Os mo 276 mOsmo 09/03/2016 Vitamin D 25 Oh Ffs0897 VITAMIN D, 25 HYDROXY 28.23 ng/mL 09/03/2016 [...] 101.9 fl 09/03/2016 Cbc With Differential Ord2 Chambers% 8.9 % 09/03/2016 Cbc With Differential Ord2 [...] 3.34 K/ul 09/03/2016 Cbc With Differential Ord2 Chambers ABS# 0.7 K/ul 09/03/2016 Cbc With Differential Ord2 Eos ABS# 0.4 K/ul 09/03/2016 Cbc With Differential Ord2 Baso ABS# 0.0 K/ul 09/03/2016 Lipid Ord30 CHOL 120 mg/dL 09/03/2016 Lipid Ord30 HDL 33.0 mg/dl 09/03/2016 Lipid Ord30 TRIG 161 mg/dL 09/03/2016 Lipid Ord30 LDL 55 mg/dL 09/03/2016 Lipid Ord30 C/HDL 3.6 Ratio 09/03/2016 %Hba1C Mfc592 % HbA1c 64243-5 7.5 % 09/03/2016 %Hba1C Pnw570 Gluc Ave 169 mg/dL 09/03/2016 Tsh Ord6 hTSH II 1.50 uIU/mL 05/23/2016 %Hba1C Ehl666 % HbA1c 05912-6 7.6 % 05/23/2016 %Hba1C Ukf147 Gluc Ave 171 mg/dL 05/23/2016 Comp Metabolic Vkl035 NA 135 mEq/L 05/23/2016 Comp Metabolic Pov964 K 4.4 mEq/L 05/23/2016 Comp Metabolic Ttn644 CL 99 mEq/L 05/23/2016 Comp Metabolic Thb040 CO2 28.0 mEq/L 05/23/2016 Comp Metabolic Ngd536 AN ION GAP 12 05/23/2016 Comp Metabolic End537 GL UCOSE 257 mg/dL 05/23/2016 Comp Metabolic Obu319 Cr eat 0.8 mg/dL 05/23/2016 Comp Metabolic Btm310 eG FR 95 ml/min/1.73m2 05/23 Comp Metabolic Ycq539 BUN 11 mg/dL 05/23/2016 Comp Metabolic Qbo922 B/ C Ratio 13.3 Ratio 05/23/2016 Comp Metabolic Bek074 CA LCIUM 9.0 mg/dL 05/23/2016 Comp Metabolic Sqr823 AL K PHOS 82 U/L 05/23/2016 Comp Metabolic Inr968 T(SGOT) 21 U/L 05/23/2016 Comp Metabolic Rmx134 AL T(SGPT) 20 U/L 05/23/2016 Comp Metabolic Kah219 BI LI T 0.3 mg/dL 05/23/2016 Comp Metabolic Rqn225 AL BUMIN 4.0 g/dL 05/23/2016 Comp Metabolic Cyj753 TP RO 6.4 g/dL 05/23/2016 Comp Metabolic Cwj710 GL OB 2.4 g/dL 05/23/2016 Comp Metabolic Vtp992 A/ G Ratio 1.6 Ratio 05/23/2016 Comp Metabolic Pbf537 Os mo 278 mOsmo 05/23/2016 Cbc With [...] 34.5 pg 05/23/2016 Cbc With Differential Ord2 Chambers% 6.1 % 05/23/2016 Cbc With Differential Ord2 [...] 2.38 K/ul 05/23/2016 Cbc With Differential Ord2 Chambers ABS# 0.4 K/ul 05/23/2016 Cbc With Differential Ord2 Eos ABS# 0.2 K/ul 05/23/2016 Cbc With Differential Ord2 Baso ABS# 0.0 K/ul 05/23/2016 B12 Fqy628 B12 597.00 pg/ml 05/23/2016 Metabolic Ord15 NA [...] 0.92 uIU/mL 07/29/2015 Vitamin D 25 Oh Vxo0442 VITAMIN D, 25 HYDROXY 26.93 ng/mL 07/29/2015 %Hba1C Wsg718 % HbA1c 15140-5 8.8 % 07/29/2015 %Hba1C Cmu201 Gluc Ave 206 mg/dL 07/29/2015 Cbc With [...] Ord2 RDW 14.9 % 07/29/2015 Comp Metabolic Sbf345 NA 138 mEq/L 07/29/2015 Comp Metabolic Yje249 K 4.4 mEq/L 07/29/2015 Comp Metabolic Phk623 CL 102 mEq/L 07/29/2015 Comp Metabolic Rwj319 CO2 28.0 mEq/L 07/29/2015 Comp Metabolic Esq193 AN ION GAP 12 07/29/2015 Comp Metabolic Pqd330 GL UCOSE 261 mg/dL 07/29/2015 Comp Metabolic Xlx295 Cr eat 1.0 mg/dL 07/29/2015 Comp Metabolic Ahf742 eG FR 77 ml/min/1.73m2 07/29 Comp Metabolic Mkq756 BUN 13 mg/dL 07/29/2015 Comp Metabolic Hfy107 B/ C Ratio 13.0 Ratio 07/29/2015 Comp Metabolic Nxm635 CA LCIUM 9.1 mg/dL 07/29/2015 Comp Metabolic Odg759 AL K PHOS 64 U/L 07/29/2015 Comp Metabolic Qxi745 T(SGOT) 20 U/L 07/29/2015 Comp Metabolic Nco209 AL T(SGPT) 22 U/L 07/29/2015 Comp Metabolic Xsu937 BI LI T 0.4 mg/dL 07/29/2015 Comp Metabolic Wqc466 AL BUMIN 4.0 g/dL 07/29/2015 Comp Metabolic Rmv308 TP RO 6.1 g/dL 07/29/2015 Comp Metabolic Cbv344 GL OB 2.1 g/dL 07/29/2015 Comp Metabolic Clt955 A/ G Ratio 1.9 Ratio 07/29/2015 Comp Metabolic Zxr411 Os mo 285 mOsmo 07/29/2015 Cbc With [...] Ord2 RDW 13.1 % 05/06/2015 Comp Metabolic Fcp955 NA 134 mEq/L 05/06/2015 Comp Metabolic Tgr635 K 4.4 mEq/L 05/06/2015 Comp Metabolic Wyw100 CL 98 mEq/L 05/06/2015 Comp Metabolic Etn131 CO2 29.0 mEq/L 05/06/2015 Comp Metabolic Vol906 AN ION GAP 11 05/06/2015 Comp Metabolic Peo491 GL UCOSE 321 mg/dL 05/06/2015 Comp Metabolic Hce721 Cr eat 1.0 mg/dL 05/06/2015 Comp Metabolic Lfu397 eG FR 78 ml/min/1.73m2 05/06 Comp Metabolic Ora162 BUN 20 mg/dL 05/06/2015 Comp Metabolic Vzh493 B/ C Ratio 20.4 Ratio 05/06/2015 Comp Metabolic Ija600 CA LCIUM 9.5 mg/dL 05/06/2015 Comp Metabolic Zlh935 AL K PHOS 62 U/L 05/06/2015 Comp Metabolic Xvg881 T(SGOT) 21 U/L 05/06/2015 Comp Metabolic Biq582 AL T(SGPT) 37 U/L 05/06/2015 Comp Metabolic Cjh467 BI LI T 0.4 mg/dL 05/06/2015 Comp Metabolic Nvb276 AL BUMIN 3.8 g/dL 05/06/2015 Comp Metabolic Avj710 TP RO 6.1 g/dL 05/06/2015 Comp Metabolic Bil881 GL OB 2.3 g/dL 05/06/2015 Comp Metabolic Uvq030 A/ G Ratio 1.7 Ratio 05/06/2015 Comp Metabolic Dwb432 Os mo 283 mOsmo 05/06/2015 Tsh Ord6 hTSH II 1.65 uIU/mL 02/18/2015 B12 Kmm125 B12 605.00 pg/ml 02/18/2015 %Hba1C Mts662 % HbA1c 00420-6 8.3 % 02/18/2015 %Hba1C Jmo042 Gluc Ave 192 mg/dL 02/18/2015 Cbc With [...] Ord2 RDW 13.9 % 02/17/2015 Comp Metabolic Sde401 NA 137 mEq/L 02/17/2015 Comp Metabolic Zpn099 K 4.4 mEq/L 02/17/2015 Comp Metabolic Fng262 CL 100 mEq/L 02/17/2015 Comp Metabolic Lpq010 CO2 31.0 mEq/L 02/17/2015 Comp Metabolic Man357 AN ION GAP 10 02/17/2015 Comp Metabolic Iju249 GL UCOSE 307 mg/dL 02/17/2015 Comp Metabolic Nfp338 Cr eat 1.0 mg/dL 02/17/2015 Comp Metabolic Jbn656 eG FR 74 ml/min/1.73m2 02/17 Comp Metabolic Nsd063 BUN 22 mg/dL 02/17/2015 Comp Metabolic Sxu119 B/ C Ratio 21.4 Ratio 02/17/2015 Comp Metabolic Hdd128 CA LCIUM 9.5 mg/dL 02/17/2015 Comp Metabolic Hqa581 AL K PHOS 78 U/L 02/17/2015 Comp Metabolic Dcx574 T(SGOT) 18 U/L 02/17/2015 Comp Metabolic Yft224 AL T(SGPT) 32 U/L 02/17/2015 Comp Metabolic Lat610 BI LI T 0.5 mg/dL 02/17/2015 Comp Metabolic Qmj365 AL BUMIN 4.3 g/dL 02/17/2015 Comp Metabolic Cvu325 TP RO 6.7 g/dL 02/17/2015 Comp Metabolic Byg458 GL OB 2.4 g/dL 02/17/2015 Comp Metabolic Vcs175 A/ G Ratio 1.8 Ratio 02/17/2015 Comp Metabolic Pff479 Os mo 289 mOsmo 02/17/2015 Review of [...] inspection of skin Location: face 03/07/2015 on pentecostalism, cheeks,actinic keratosis with irritation on left cheek - left pentecostalism - croptherapy on these two lesions - [...] intact 12/09/2014 None Procedures Procedure Codes Date PPPS, SUBSEQ VISIT CPT- 4: G0439 06/30/2018 THER/PROPH/DIAG INJ SC/IM CPT-4: 28120 06/24/2018 THER/PROPH/DIAG INJ SC/IM CPT-4: 85796 06/13/2018 ADMIN INFLUENZA VIRU S VAC CPT-4: G0008 06/06/2018 FLU VACC PRSV FREE I NC ANTIG CPT-4: 52351 06/06/2018 THER/PROPH/DIAG INJ SC/IM CPT-4: 57294 06/05/2018 THER/PROPH/DIAG INJ SC/IM CPT-4: 82366 05/30/2018 THER/PROPH/DIAG INJ SC/IM CPT-4: 66905 05/22/2018 THER/PROPH/DIAG INJ SC/IM CPT-4: 79762 05/12/2018 THER/PROPH/DIAG INJ SC/IM CPT-4: 64250 05/02/2018 THER/PROPH/DIAG INJ SC/IM CPT-4: 25661 04/24/2018 THER/PROPH/DIAG INJ SC/IM CPT-4: 68606 04/17/2018 KETOROLAC TROMETHAMI NE INJ CPT-4: J1885 03/07/2018 URINALYSIS NONAUTO W /O SCOPE CPT-4: 59528 03/07/2018 THER/PROPH/DIAG INJ SC/IM CPT-4: 81142 02/20/2018 TRIAMCINOLONE ACET I [place] NOS CPT-4: J3301 01/30/2018 THER/PROPH/DIAG INJ SC/IM CPT-4: 01198 01/17/2018 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-[address]: 699385163 CPT-4: G0436 04/25/2017 ADMIN INFLUENZA VIRU S VAC CPT-4: G0008 04/25/2017 ADMIN PNEUMOCOCCAL V ACCINE SNOMED CT: 97848452 CPT-4: G0009 04/25/2017 PNEUMOCOCCAL VACC [address]: 42692290 CPT-4: 74178 04/25/2017 FLU VACC PRSV FREE I NC ANTIG CPT-4: 67628 04/25/2017 ADMIN INFLUENZA VIRU S VAC CPT-4: G0008 05/22/2016 FLU VACC 4 TELLY 3 YRS PLUS IM Formatting Model/CDA Sections, Assigned to/Angela Clemons SNOMED CT: 03679502 CPT-4: 93834Uhkkgoa 05/22/2016 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-[address]: 701770822 CPT-4: G0436 11/25/2015 URINALYSIS NONAUTO W /O SCOPE CPT-4: 53296 05/09/2015 TRIAMCINOLONE ACET I [place] NOS CPT-4: J3301 04/12/2015 DESTRUCT PREMALG LESION CPT-4: 65294 03/07/2015 DESTRUCT PREMALG LES 2-14 CPT-4: 27827 03/07/2015 REMOVE IMPACTED EAR WAX UNI CPT-4: 23579 12/31/2014 THER/PROPH/DIAG INJ SC/IM CPT-4: 93684 12/23/2014 TRIAMCINOLONE ACET I [place] NOS CPT-4: J3301 12/23/2014 Vital Signs Date Vital 06/30/2018 BMI: 21.8 Code: 70739-8 Height: 5'11" Weight: 156 lbs 06/06/2018 Blood Pressure 1: 128/76 Code: 8480-6 BMI: 22.0 Code: 94605-7 Heart Rate 1: 81 bpm Height: 5'11" SpO2: 92% Weight: 158 lbs 04/04/2018 Blood Pressure 1: 124/70 Code: 8480-6 BMI: 20.8 Code: 56198-0 Heart Rate 1: 65 bpm Height: 5'11" SpO2: 95% Weight: 149 lbs 03/07/2018 Blood Pressure 1: 148/70 Code: 8480-6 BMI: 21.2 Code: 09967-4 Heart Rate 1: 66 bpm Height: 5'11" SpO2: 94% Weight: 152 lbs 02/20/2018 Blood Pressure 1: 134/58 Code: 8480-6 BMI: 20.5 Code: 08620-0 Heart Rate 1: 61 bpm Height: 5'11" SpO2: 92% Weight: 147 lbs 01/30/2018 Blood Pressure 1: 158/68 Code: 8480-6 BMI: 21.5 Code: 81480-4 Heart Rate 1: 71 bpm Height: 5'11" SpO2: 92% Weight: 154 lbs 01/14/2018 Blood Pressure 1: 156/70 Code: 8480-6 Height: Weight: 01/13/2018 Blood Pressure 1: 148/62 Code: 8480-6 BMI: 20.9 Code: 86727-1 Heart Rate 1: 54 bpm Height: 5'11" SpO2: 97% Weight: 150 lbs 11/19/2017 Blood Pressure 1: 150/60 Code: 8480-6 BMI: 21.8 Code: 42361-1 Heart Rate 1: 63 bpm Height: 5'11" SpO2: 98% Weight: 156 lbs 10/02/2017 Blood Pressure 1: 168/60 Code: 8480-6 BMI: 21.9 Code: 57407-2 Heart Rate 1: 52 bpm Height: 5'11" SpO2: 97% Weight: 157 lbs 07/23/2017 Blood Pressure 1: 170/70 Code: 8480-6 BMI: 21.8 Code: 11233-6 Heart Rate 1: 65 bpm Height: 5'11" SpO2: 98% Weight: 156 lbs 04/25/2017 Blood Pressure 1: 138/60 Code: 8480-6 BMI: 21.6 Code: 64036-1 Heart Rate 1: 55 bpm Height: 5'11" SpO2: 93% Weight: 155 lbs 02/19/2017 Blood Pressure 1: 138/64 Code: 8480-6 BMI: 21.3 Code: 58336-0 Heart Rate 1: 52 bpm Height: 5'11" SpO2: 96% Weight: 152 lbs 8 oz 01/21/2017 Blood Pressure 1: 160/68 Code: 8480-6 BMI: 21.3 Code: 56194-9 Heart Rate 1: 62 bpm Height: 5'11" SpO2: 96% Weight: 153 lbs 12/20/2016 Blood Pressure 1: 124/66 Code: 8480-6 BMI: 21.5 Code: 54537-8 Height: 5'11" Weight: 154 lbs 08/23/2016 Blood Pressure 1: 142/52 Code: 8480-6 BMI: 21.2 Code: 12789-3 Heart Rate 1: 54 bpm Height: 5'11" SpO2: 96% Weight: 152 lbs 05/22/2016 Blood Pressure 1: 130/76 Code: 8480-6 BMI: 21.5 Code: 28830-9 Heart Rate 1: 78 bpm Height: 5'11" SpO2: 92% Weight: 154 lbs 02/24/2016 Blood Pressure 1: 128/80 Code: 8480-6 BMI: 21.2 Code: 65873-5 Heart Rate 1: 74 bpm Height: 5'11" SpO2: 96% Weight: 152 lbs 01/27/2016 Blood Pressure 1: 144/60 Code: 8480-6 BMI: 21.2 Code: 74074-2 Heart Rate 1: 74 bpm Height: 5'11" SpO2: 97% Weight: 152 lbs 11/25/2015 Blood Pressure 1: 110/52 Code: 8480-6 BMI: 21.9 Code: 44178-7 Heart Rate 1: 65 bpm Height: 5'11" SpO2: 92% Weight: 157 lbs 07/28/2015 Blood Pressure 1: 138/62 Code: 8480-6 BMI: 21.8 Code: 08894-7 Heart Rate 1: 63 bpm Height: 5'11" SpO2: 91% Weight: 156 lbs 05/26/2015 Blood Pressure 1: 120/58 Code: 8480-6 BMI: 21.5 Code: 70812-5 Heart Rate 1: 99 bpm Height: 5'11" SpO2: 96% Weight: 154 lbs 05/06/2015 Blood Pressure 1: 120/58 Code: 8480-6 BMI: 21.2 Code: 52962-5 Heart Rate 1: 66 bpm Height: 5'11" SpO2: 96% Weight: 152 lbs 04/25/2015 Blood Pressure 1: 136/62 Code: 8480-6 BMI: 21.2 Code: 83325-8 Heart Rate 1: 63 bpm Height: 5'11" SpO2: 97% Weight: 152 lbs 04/12/2015 Blood Pressure 1: 160/58 Code: 8480-6 BMI: 21.6 Code: 15195-9 Heart Rate 1: 62 bpm Height: 5'11" Weight: 155 lbs 03/24/2015 Blood Pressure 1: 138/68 Code: 8480-6 BMI: 22.0 Code: 82731-2 Heart Rate 1: 65 bpm Height: 5'11" SpO2: 96% Weight: 158 lbs 03/07/2015 Blood Pressure 1: 116/52 Code: 8480-6 BMI: 22.2 Code: 67320-7 Heart Rate 1: 64 bpm Height: 5'11" SpO2: 97% Weight: 159 lbs 02/17/2015 Blood Pressure 1: 148/58 Code: 8480-6 BMI: 21.3 Code: 43127-9 Heart Rate 1: 63 bpm Height: 5'11" SpO2: 97% Weight: 153 lbs 12/31/2014 Blood Pressure 1: 100/60 Code: 8480-6 BMI: 21.8 Code: 29779-8 Heart Rate 1: 68 bpm Height: 5'11" Weight: 156 lbs 12/23/2014 Blood Pressure 1: 148/64 Code: 8480-6 BMI: 21.9 Code: 02806-2 Heart Rate 1: 64 bpm Height: 5'11" [...] Pertinent Findings Denies dyspnea 07/23/2017 None hypertension Mike leach hypertension 07/23/2017 None hypertension Onset and [...] Encounters Encounter Performer Loca tion Codes Date ([id number]) [id number] EST. P ATIENT, LEVEL IV Diagnosis: Cellulitis of face[ICD10: L03.211] Diagnosis: Type 2 diabetes mellitus without complications[ICD10: E11.9] Diagnosis: Essential (primary) hypertension[ICD10: I10] Diagnosis: Encounter for immunization[ICD10: Z23] Karmen Ash MD, [facility] CPT-4: 50319 06/06/2018 ([id number]) 34427 EST. 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 P ATIENT, LEVEL III Diagnosis: Low back pain[ICD10: M54.5] Diagnosis: Dysuria[ICD10: R30.0] Karmen Ash MD, [facility] CPT-4: 29805 03/07/2018 ([id number]) 69298 EST. 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 P ATIENT, LEVEL III Diagnosis: Chronic obstructive pulmonary disease with (acute) exacerbation[ICD10: J44.1] Karmen Ash MD, [facility] CPT-4: 09597 01/30/2018 [id number] EST. PATIENT, LEVEL II Diagnosis: Insect bite (nonvenomous), left lower leg, initial encounter[ICD10: S80.862A] Karmen Ash MD, [facility] CPT-4: 42694 01/14/2018 ([id number]) 19462 EST. P ATIENT, LEVEL IV Diagnosis: Type 2 diabetes mellitus with hyperglycemia[ICD10: E11.65] Diagnosis: Chronic obstructive pulmonary disease, unspecified[ICD10: J44.9] Diagnosis: Other fatigue[ICD10: R53.83] Karmen Ash MD, [facility] CPT- 4: 69094 01/13/2018 ([id number]) 40578 EST. P ATIENT, LEVEL IV Diagnosis: Type 2 diabetes mellitus with hyperglycemia[ICD10: E11.65] Diagnosis: Vitamin D deficiency, unspecified[ICD10: E55.9] Diagnosis: Essential (primary) hypertension[ICD10: I10] Diagnosis: Abdominal distension (gaseous)[ICD10: R14.0] Diagnosis: Drug induced constipation[ICD10: K59.03] Karmen Ash MD, [facility] CPT-4: 87274 11/19/2017 [id number] EST. PATIENT, LEVEL IV Diagnosis: Low back pain[ICD10: M54.5] Diagnosis: Chronic obstructive pulmonary disease, unspecified[ICD10: J44.9] Brunilda Ash MD, [facility] CPT-4: 68272 10/02/2017 ([id number]) 54483 EST. P ATIENT, LEVEL IV Diagnosis: Essential (primary) hypertension[ICD10: I10] Diagnosis: Type 2 diabetes mellitus with hyperglycemia[ICD10: E11.65] Diagnosis: Vitamin D deficiency, unspecified[ICD10: E55.9] Diagnosis: Mixed hyperlipidemia[ICD10: E78.2] Karmen Ash MD, [facility] CPT-4: 75681 07/23/2017 ([id number]) 93008 EST. P ATIENT, LEVEL IV Diagnosis: Essential (primary) hypertension[ICD10: I10] Diagnosis: Type 2 diabetes mellitus with hyperglycemia[ICD10: E11.65] Diagnosis: Chronic obstructive pulmonary disease, unspecified[ICD10: J44.9] Diagnosis: Nicotine dependence, unspecified, uncomplicated[ICD10: F17.200] Diagnosis: Encounter for immunization[ICD10: Z23] Karmen Ash MD, [facility] CPT-4: 70103 04/25/2017 ([id number]) 63504 EST. P ATIENT, LEVEL IV Diagnosis: Type 2 diabetes mellitus with hyperglycemia[ICD10: E11.65] Diagnosis: Essential (primary) hypertension[ICD10: I10] Diagnosis: Anemia, unspecified[ICD10: D64.9] Karmen Ash MD, [facility] CPT- 4: 02136 02/19/2017 ([id number]) 69968 EST. P ATIENT, LEVEL IV Diagnosis: Slow transit constipation[ICD10: K59.01] Diagnosis: Gastro-esophageal reflux disease without esophagitis[ICD10: K21.9] Diagnosis: Essential (primary) hypertension[ICD10: I10] Karmen Ash MD, [facility] CPT-4: 20440 01/21/2017 ([id number]) 29788 EST. P ATIENT, LEVEL IV Diagnosis: Type 2 diabetes mellitus with hyperglycemia[ICD10: E11.65] Diagnosis: Vitamin D deficiency, unspecified[ICD10: E55.9] Diagnosis: Essential (primary) hypertension[ICD10: I10] Diagnosis: Chronic obstructive pulmonary disease, unspecified[ICD10: J44.9] Karmen Ash MD, [facility] CPT-4: 16136 12/20/2016 ([id number]) 55559 EST. P ATIENT, LEVEL IV Diagnosis: Type 2 diabetes mellitus with hyperglycemia[ICD10: E11.65] Diagnosis: Essential (primary) hypertension[ICD10: I10] Diagnosis: Mixed hyperlipidemia[ICD10: E78.2] Diagnosis: Vitamin D deficiency, unspecified[ICD10: E55.9] Karmen Ash MD, [facility] CPT-4: 18770 08/23/2016 ([id number]) 82275 EST. P ATIENT, LEVEL IV Diagnosis: Type 2 diabetes mellitus with hyperglycemia[ICD10: E11.65] Diagnosis: Essential (primary) hypertension[ICD10: I10] Diagnosis: Chronic obstructive pulmonary disease, unspecified[ICD10: J44.9] Karmen Ash MD, [facility] CPT-4: 60859 05/22/2016 ([id number]) 05992 EST. P ATIENT, LEVEL III Diagnosis: Dysuria[ICD10: R30.0] Diagnosis: Essential (primary) hypertension[ICD10: I10] Karmen Ash MD, [facility] CPT-4: 31748 02/24/2016 ([id number]) 30983 EST. P ATIENT, LEVEL IV Diagnosis: Gastro-esophageal reflux disease without esophagitis[ICD10: K21.9] Diagnosis: Slow transit constipation[ICD10: K59.01] Diagnosis: Type 2 diabetes mellitus with hyperglycemia[ICD10: E11.65] Karmen Ash MD, [facility] CPT-4: 28781 01/27/2016 ([id number]) 25318 EST. P ATIENT, LEVEL IV Diagnosis: Essential (primary) hypertension[ICD10: I10] Diagnosis: Type 2 diabetes mellitus with hyperglycemia[ICD10: E11.65] Diagnosis: Vitamin D deficiency, unspecified[ICD10: E55.9] Diagnosis: Chronic obstructive pulmonary disease, unspecified[ICD10: J44.9] Diagnosis: Mixed hyperlipidemia[ICD10: E78.2] Diagnosis: Tobacco use[ICD10: Z72.0] Karmen Ash MD, [facility] CPT- 4: 34541 11/25/2015 ([id number]) 44339 EST. P ATIENT, LEVEL IV Diagnosis: Type 2 diabetes mellitus with hyperglycemia[ICD10: E11.65] Diagnosis: Essential (primary) hypertension[ICD10: I10] Diagnosis: Vitamin D deficiency, unspecified[ICD10: E55.9] Karmen Ash MD, [facility] CPT-4: 31266 07/28/2015 ([id number]) 25742 EST. P ATIENT, LEVEL III Diagnosis: Type 2 diabetes mellitus with hyperglycemia[ICD10: E11.65] Diagnosis: Essential (primary) hypertension[ICD10: I10] Violeta Ash MD, [facility] CPT-4: 43820 05/26/2015 ([id number]) 93311 EST. P ATIENT, LEVEL III Diagnosis: DIABETES TYPE II[ICD9: 250.00] Diagnosis: COPD (chronic obstructive pulmonary disease)[ICD9: 496] Diagnosis: ESSENTIAL HYPERTENSION[ICD9: 401.9] Diagnosis: Cough[ICD9: 786.2] Violeta Ash MD, [facility] CPT-4: 79269 05/06/2015 ([id number]) 26016 EST. P ATIENT, LEVEL III Diagnosis: COPD (chronic obstructive pulmonary disease)[ICD9: 496] Diagnosis: DIABETES TYPE II[ICD9: 250.00] Diagnosis: Muscle ache[ICD9: 729.1] Karmen Ash MD, [facility] CPT- 4: 43535 04/25/2015 ([id number]) 08194 EST. P ATIENT, LEVEL III Diagnosis: ACTINIC KERATOSIS[ICD9: 702.0] Diagnosis: COPD (chronic obstructive pulmonary disease)[ICD9: 496] Diagnosis: DIABETES TYPE II[ICD9: 250.00] Diagnosis: ACUTE URI[ICD9: 465.9] Violeta Ash MD, [facility] CPT-4: 24351 04/12/2015 ([id number]) 63092 EST. P ATIENT, LEVEL III Diagnosis: DIABETES TYPE II[ICD9: 250.00] Violeta Ash MD, [facility] CPT-4: 54083 03/24/2015 ([id number]) 74449 EST. P ATIENT, LEVEL IV Diagnosis: DIABETES TYPE II[ICD9: 250.00] Diagnosis: Hypoglycemia[ICD9: 251.2] Diagnosis: Skin texture changes[ICD9: 782.8] Violeta Ash MD, [facility] CPT-4: 88745 03/07/2015 ([id number]) 43474 EST. P ATIENT, LEVEL IV Diagnosis: COPD (chronic obstructive pulmonary disease)[ICD9: 496] Diagnosis: Fatigue[ICD9: 780.79] Diagnosis: Insulin dependent diabetes mellitus[ICD9: 250.00] Diagnosis: Unsteady gait[ICD9: 781.2] Maame Ash MD, [facility] CPT-4: 26416 02/17/2015 ([id number]) 04634 EST. P ATIENT, LEVEL IV Diagnosis: BPPV (benign paroxysmal positional vertigo)[ICD9: 386.11] Diagnosis: Impacted cerumen[ICD9: 380.4] Diagnosis: ESSENTIAL HYPERTENSION[ICD9: 401.9] Diagnosis: Insulin dependent diabetes mellitus[ICD9: 250.00] [facility] CPT-4: 15364 12/23/2014 ([id number]) OFFICE [facility] - LEVEL 4 Diagnosis: Insulin dependent diabetes mellitus[ICD9: 250.00] Diagnosis: BPPV (benign paroxysmal positional vertigo)[ICD9: 386.11] Diagnosis: COPD (chronic obstructive pulmonary disease)[ICD9: 496] Diagnosis: Tobacco abuse[ICD9: 305.1] Diagnosis: Osteoarthritis[ICD9: 715.90] [facility] CPT- 4: 07559 12/09/2014 Plan of Care Planned Activity Notes C odes Status Date Visit Plan: Medicare Exam - today w [...] DOPA paperwork for health care surrogate. 06/30/2018 Patient Education: Patient Medication Summary Completed [...] in pain. 06/06/2018 Appointment: [facility]inal [phone] (15 min) Moderate 06/06/2018 Patient [...] months 04/04/2018 Appointment: Karmen Espinal WPtel: [phone] [facility] [place] [address] (15 min) Moderate 04/04/2018 Patient Education: Patient Medication Summary Completed 04/04/2018 Care Plan: Cbc With Differential Pending 04/04/2018 Care Plan: Testosterone repeat in 2 months Pending 04/04/2018 Appointment: Karmen Espinal WPtel: [phone] [place] [address] [place] (15 min) Moderate 03/25/2018 Visit Plan: Low back pain -history of kidney stone-UA negative today -increase fluids and call if pain does not resolve or if any worse. 03/07/2018 Appointment: Karmen Espinal WPtel: [phone] [phone] [place] (15 min) Moderate 03/07/2018 Patient [...] 1 month 02/20/2018 Appointment: Karmen Espinal WPtel: [phone] (15 min) Moderate 02/20/2018 Patient Education: Patient Medication Summary Completed 02/20/2018 Visit Plan: COPD EXACERBATION - DIRECTOR OF ANALYTICAL DEVELOPMENT D is a chronic problem for this [...] changes. 01/30/2018 Appointment: Karmen Espinal WPtel: [phone] [phone] (15 min) Moderate 01/30/2018 Patient Education: Patient Medication Summary Completed 01/30/2018 Appointment: Karmen Espinal WPtel: [phone] [phone] [place] (15 min) Moderate 01/28/2018 Appointment: Injection 01/17/2018 Patient Education: Patient Medication Summary Completed 01/17/2018 Visit Plan: Cellulitis - start oral antibiotics as directed, return to clinic as previously directed, call for acute change in symptoms, worsening redness, warmth, discharge. 01/14/2018 Appointment: Karmen Espinal WPtel: [facility] [place] [phone] (10 min) Simple 01/14/2018 Patient Education: Patient [...] less controlled. 01/13/2018 Appointment: Karmen Espinal WPtel: [phone] (15 min) Moderate 01/13/2018 Patient Education: Patient Medication Summary Completed 01/13/2018 Referral: Hugo Villatoro HPtel:[phone] [place] [address] Patient's informed. Referral info ned monroy. Completed [...] change in blood pressure readings at home. Zkvsmzas-swkbvc-pyqnk to see Dr Villatoro Constipation-start linzess daily 11/19/2017 Appointment: [facility] Espinal WPtel: [phone] [place] (30 min) Complex 11/19/2017 Patient Education: Patient Medication Summary Completed 11/19/2017 Care Plan: Referral Order bloating, nausea SNOMED-CT : 086846569 Pending 11/19/2017 Visit Plan: Low back pain- [...] acute changes. 10/02/2017 Appointment: Brunilda Maravilla WPtel: [facility] [place] (15 min) Moderate 10/02/2017 Patient Education: [...] less controlled. 07/23/2017 Appointment: Karmen Espinal WPtel: [address] [place], [place] [phone] (30 min) [facility] 07/23/2017 Patient Education: Patient [...] pack/year history 04/25/2017 Appointment: [facility] Espinal WPtel[facility] [phone] [phone] (30 min) Complex 04/25/2017 Patient [...] readings are starting to become less controlled. Tmfkhm-ormrasp-sfvfy labs 02/19/2017 Appointment: [facility] Espinal WPtel[facility] [phone] [phone] (30 min) Complex 02/19/2017 Patient [...] month 01/21/2017 Appointment: [facility] Espinal [facility]Ptel[facility] [phone] [phone] (30 min) Complex 01/21/2017 Patient Education: Patient Medication Summary Completed 01/21/2017 Patient Education: Smoking and Tobacco Addiction Completed 01/21/2017 Patient Education: Hypertension Completed 01/21/2017 Care Plan: Referral Order SNOMED-CT : 921613639 Pending 01/21/2017 Visit Plan: Diabetes Mellitus - [...] changes. 12/20/2016 Appointment: Karmen Espinal WPtel: [phone] [phone] (30 min) Complex 12/20/2016 Patient Education: Patient Medication Summary Completed 12/20/2016 Patient Education: Smoking and Tobacco Addiction Completed 12/20/2016 Patient Education: Hypertension Completed 12/20/2016 Appointment: [facility] Espinal WPtel[facility] [phone] [phone] (30 min) Complex 09/06/2016 Visit [...] level 08/23/2016 Appointment: [facility] Espinal WPtel[facility] [phone] [phone] (30 min) Complex 08/23/2016 Patient [...] changes. 05/22/2016 Appointment: Karm[facility] Espinal WPtel[facility] [phone] [phone] (30 min) Complex 05/22/2016 Patient Education: Patient Medication Summary Completed 05/22/2016 Patient Education: Smoking and Tobacco Addiction Completed 05/22/2016 Care Plan: Cbc With Differential Ordered 05/22/2016 Care Plan: %Hba1C KIKI C : 44797-2 Ordered 05/22/2016 Care Plan: Tsh Ordered 05/22/2016 [...] update 02/24/2016 Appointment: [facility]arm[facility] Espinal WPtel[facility] [phone] [phone] (30 min) Complex 02/24/2016 Patient [...] regimen. 01/27/2016 Appointment: [facility]arm[facility] Espinal WPtel[facility] [phone] [phone] (30 min) Complex 01/27/2016 Patient [...] Completed 05/06/2015 Visit Plan: COPD EXACERBATION - DIRECTOR OF ANALYTICAL DEVELOPMENT D is a chronic problem for this [...] POTENTIAL SIDE EFFECTS AND WORSENING OF SYMPTOMS. Oaeadrgl-kpzgqrma-XMTL SIMVASTATIN X 2 WEEKS AND CALL WITH [...] Care Plan: COMPLETE CBC AUTOMATED LOINC : 15829-3 Ordered 03/24/2015 Visit Plan: Diabetes Mellitus - [...] for removal. 03/07/2015 Appointment: Violeta Ash WPtel: [address] [place], [place] [phone] (15 min) Moderate 03/07/2015 Patient Education: Patient [...] Care Plan: COMPLETE CBC AUTOMATED LOINC : 37109-7 Ordered 12/23/2014 Visit Plan: BPPV - Benign [...] next appt 12/09/2014 Appointment: Karmen Espinal WPtel: [phone] [place] ([place]) New Patient 12/09/2014 Patient Education: Patient Medication Summary Completed 12/09/2014 Patient Education: .Amazing charts Parox ysmal positional vertigo Completed 12/09/2014 Patient Education: Smoking and Tobacco Addiction Completed 12/09/2014 Referral: Hugo Villatoro HPtel:[phone] [facility] [place] Referral Appointment Requested Referral: [...] readings are starting to become less controlled. Fimudu-duludzt-srxzr labs . Cellulitis - start oral antibiotics [...] change in blood pressure readings at home. Ojsngmoh-ezzswj-lypkz to see Dr Villatoro Constipation-start linzess daily [...] POTENTIAL SIDE EFFECTS AND WORSENING OF SYMPTOMS. Dszthteg-axlgjhfm-YHQN SIMVASTATIN X 2 WEEKS AND CALL WITH [...]
--- OUTSIDE RECORDS SUMMARY | 2020-03-29 09:36 | XMS REPORT | CCD ---
Author Author Dick Espinal Organization Violeta Ash MD, [facility] Address [address] [place] [address] Phone Care Team Providers Care Print Buyer Name Role Phone PP Unavailable CCM Unavailable Summary Purpose Interface Exchange Insurance Providers Payer name Policy type / Coverage type Covered alliance party ID Effective Begin Date Effective End Date WPS Medicare Part B Medicare Part B [id number] Unknown Unknown [employer] Medicar e Part B [id number] Unknown Unkn own Family history Father Diagnosis Age At Onset Cancer Unknown Mother Diagnosis Age At Onset Cancer Unknown Social History Social History Element Codes Description Effective Dates Marital status Unknown M arried 12/09/2014 Employment Unknown Retir ed 12/09/[address]: 12798297 Currently smokes tobacco 12/09/2014 Number of years using tobacco Unknown > 50 12/09/2014 Number of cigarettes/day Unknown 30 (Pack and a half) 12/09/[address]: 704092382 Never drinks alcohol 12/09/2014 Allergies, Adverse Reactions, [...] Fill Instructions Xanax 0.5 mg tablet RxNorm: 818024 1 Tablet(s) PO TID 06/27/2018 08/25/2018 Active testosterone cypiona te 200 mg/mL intramuscular oil RxNorm: 959632 Milliliter(s) IM 06/24/2018 06/24/2018 In active hydrocodone 5 mg-linh taminophen 325 mg tablet RxNorm: 706562 1 Tablet(s) PO Q6-8H as needed 06/23/2018 07/17/2018 Active testosterone cypiona te 200 mg/mL intramuscular oil RxNorm: 657609 Milliliter(s) IM 06/13/2018 06/13/2018 In active testosterone cypiona te 200 mg/mL intramuscular oil RxNorm: 241154 Milliliter(s) IM 06/05/2018 06/05/2018 In active testosterone cypiona te 200 mg/mL intramuscular oil RxNorm: 990498 1/2 Milliliter(s) IM weekly 05/30/2018 09/26/2018 Active testosterone cypiona te 200 mg/mL intramuscular oil RxNorm: 723990 Milliliter(s) IM 05/30/2018 05/30/2018 In active testosterone cypiona te 200 mg/mL intramuscular oil RxNorm: 965434 Milliliter(s) IM 05/22/2018 05/22/2018 In active hydrocodone 5 mg-linh taminophen 325 mg tablet RxNorm: 490891 1 Tablet(s) PO Q6-8H as needed 05/20/2018 06/13/2018 Inactive testosterone cypiona te 200 mg/mL intramuscular oil RxNorm: 967063 1/2 Milliliter(s) IM 05/12/2018 05/12/2018 Inactive testosterone cypiona te 200 mg/mL intramuscular oil RxNorm: 962963 Milliliter(s) IM 05/02/2018 05/02/2018 In active testosterone cypiona te 200 mg/mL intramuscular oil RxNorm: 870419 1/2 Milliliter(s) IM weekly 04/24/2018 05/29/2018 Inactive testosterone cypiona te 200 mg/mL intramuscular oil RxNorm: 594030 0.5 Milliliter(s) IM 04/24/2018 04/24/2018 Inactive hydrocodone 5 mg-linh taminophen 325 mg tablet RxNorm: 827695 1 Tablet(s) PO Q6-8H as needed 04/22/2018 05/16/2018 Inactive testosterone cypiona te 200 mg/mL intramuscular oil RxNorm: 870055 1/2 Milliliter(s) IM 04/17/2018 04/17/2018 Inactive testosterone cypiona te 200 mg/mL intramuscular oil RxNorm: 950268 1/2 Milliliter(s) IM weekly 04/16/2018 04/23/2018 Inactive Jardiance 10 mg tablet RxNorm: 2714326 1 Tablet(s) PO daily 04/04/2018 12/29/2018 Active Protonix 40 mg table t,delayed release RxNorm: 236978 1 Tablet(s) PO daily TAKE 1 TABLET BY MOUTH DAILY 04/04/2018 03/29/2019 Active - Ref: [id number] testosterone cypiona te 200 mg/mL intramuscular oil RxNorm: 147640 1 Milliliter(s) IM monthly 04/04/2018 04/15/2018 Inactive hydrocodone 5 mg-linh taminophen 325 mg tablet RxNorm: 474583 1 Tablet(s) PO Q6-8H as needed 03/19/2018 04/12/2018 Inactive Flomax 0.4 mg capsule RxNorm: 090963 1 Capsule(s) PO daily 03/10/2018 03/04/2019 Active Urecholine 25 mg tablet RxNorm: 630971 1 Tablet(s) PO BID 03/10/2018 07/07/2018 Active ketorolac 60 mg/2 mL intramuscular solution RxNorm: 0855929 Milliliter(s) IM 03/07/2018 03/07/2018 In active metformin 500 mg tablet RxNorm: 515726 Tablet(s) TAKE 1 TABLET BY MOUTH DAILY 02/20/2018 02/14/2019 Ac tive 1 q am and 1/2 tab q pm hydrocodone 5 mg-linh taminophen 325 mg tablet RxNorm: 595571 1 Tablet(s) PO Q6-8H as needed 02/20/2018 03/16/2018 Inactive Kenalog 40 mg/mL bartolome pension for injection RxNorm: 7895117 1.5 Milliliter(s) In j 01/30/2018 01/30/2018 In active hydrocodone 5 mg-linh taminophen 325 mg tablet RxNorm: 668622 1 Tablet(s) PO Q6-8H as needed 01/23/2018 02/16/2018 Inactive Urecholine 25 mg tablet RxNorm: 437701 1 Tablet(s) PO BID 01/22/2018 03/09/2018 Inactive Flomax 0.4 mg capsule RxNorm: 177365 1 Capsule(s) PO daily 01/22/2018 03/09/2018 Inactive Flomax 0.4 mg capsule RxNorm: 310783 1 Capsule(s) PO daily 01/22/2018 01/21/2018 Inactive Urecholine 25 mg tablet RxNorm: 867199 1 Tablet(s) PO BID 01/22/2018 01/21/2018 Inactive testosterone cypiona te 200 mg/mL intramuscular oil RxNorm: 397634 Milliliter(s) IM 01/17/2018 01/17/2018 In active testosterone cypiona te 200 mg/mL intramuscular oil RxNorm: 790217 1 Milliliter(s) IM monthly 01/17/2018 04/03/2018 Inactive lisinopril 10 mg tablet RxNorm: 776552 TAKE 1 TABLET BY MOUTH TWO TIMES DAILY 01/14/2018 01/08/2019 Ac tive - First Attempt Ref: [id number] doxycycline hyclate 100 mg tablet RxNorm: 705470 1 Tablet(s) PO BID 01/14/2018 01/23/2018 Inactive Xanax 0.5 mg tablet RxNorm: 824854 1 Tablet(s) PO TID 01/08/2018 04/06/2018 Inactive nystatin 100,000 uni t/mL oral suspension RxNorm: 745913 4 Milliliter(s) PO QI D Swish and swallow 01/08/2018 01/07/2018 Inactive nystatin 100,000 uni t/mL oral suspension RxNorm: 363321 4 Milliliter(s) PO QI D Swish and swallow 01/08/2018 01/12/2018 Inactive simvastatin 40 mg ta blet RxNorm: 623039 TAKE 1 TABLET BY MOUT H DAILY AT BEDTIME 12/30/2017 12/24/2018 Ac tive - First Attempt Ref: [id number] metformin 500 mg tablet RxNorm: 530883 TAKE 1 TABLET BY MOUTH DAILY 12/30/2017 02/19/2018 Inactive - First Attempt Ref: [id number] hydrocodone 5 mg-linh taminophen 325 mg tablet RxNorm: 086993 1 Tablet(s) PO Q6-8H as needed 12/25/2017 01/18/2018 Inactive Protonix 40 mg table t,delayed release RxNorm: 819780 Tablet(s) TAKE 1 TABL ET BY MOUTH DAILY 11/20/2017 04/03/2018 Inactive - Ref: [id number] Linzess 72 mcg capsule RxNorm: 8002526 1 Capsule(s) PO daily 11/19/2017 No Stop Date Active hydrocodone 5 mg-linh taminophen 325 mg tablet RxNorm: 064674 1 Tablet(s) PO Q6-8H as needed 11/19/2017 12/13/2017 Inactive hydrocodone 5 mg-linh taminophen 325 mg tablet RxNorm: 002421 1 Tablet(s) PO Q6-8H as needed 10/28/2017 11/18/2017 Inactive Xanax 0.5 mg tablet RxNorm: 778415 1 Tablet(s) PO TID 10/25/2017 12/22/2017 Inactive Xanax 0.5 mg tablet RxNorm: 138237 TAKE ONE TABLET BY MOUTH THREE TIMES A D AY 10/24/2017 12/22/2017 In active hydrocodone 5 mg-linh taminophen 325 mg tablet RxNorm: 958623 1 Tablet(s) PO Q6-8H as needed 09/30/2017 10/24/2017 Inactive Protonix 40 mg table t,delayed release RxNorm: 980547 TAKE 1 TABLET BY MOUT H DAILY 09/16/2017 11/19/2017 In active - Ref: [id number] Yovana SolLisy 300 unit/mL (1.5 mL) subcutaneous insulin pen RxNorm: 3103562 35 Unit(s) SQ QHS 08/30/2017 No Stop Date Active dosage increase hydrocodone 5 mg-linh taminophen 325 mg tablet RxNorm: 189797 1 Tablet(s) PO Q6-8H as needed 08/28/2017 09/29/2017 Inactive hydrocodone 5 mg-linh taminophen 325 mg tablet RxNorm: 596348 1 Tablet(s) PO Q6-8H as needed 07/23/2017 08/24/2017 Inactive lisinopril 10 mg tablet RxNorm: 630731 1 Tablet(s) PO BID Take 1 tablet by mout h daily 07/23/2017 01/13/2018 Inactive hydrocodone 5 mg-linh taminophen 325 mg tablet RxNorm: 976350 1 Tablet(s) PO Q6-8H as needed 06/27/2017 07/22/2017 Inactive Xanax 0.5 mg tablet RxNorm: 338495 1 Tablet(s) PO TID 06/18/2017 10/25/2017 Inactive hydrocodone 5 mg-linh taminophen 325 mg tablet RxNorm: 665807 1 Tablet(s) PO Q6-8H as needed 05/27/2017 06/26/2017 Inactive Levaquin 500 mg tablet RxNorm: 426027 1 Tablet(s) PO daily 05/24/2017 05/23/2017 Inactive Levaquin 500 mg tablet RxNorm: 557235 1 Tablet(s) PO daily 05/24/2017 05/30/2017 Inactive Protonix 40 mg table t,delayed release RxNorm: 883328 Take 1 tablet by mout h daily 04/29/2017 09/15/2017 In active - Ref: [id number] hydrocodone 5 mg-linh taminophen 325 mg tablet RxNorm: 097929 1 Tablet(s) PO Q6-8H as needed 04/25/2017 05/26/2017 Inactive metformin 500 mg tablet RxNorm: 679343 Take 1 tablet by mouth daily 04/08/2017 12/29/2017 Inactive - First Attempt Ref: [id number] hydrocodone 5 mg-linh taminophen 325 mg tablet RxNorm: 756514 1 Tablet(s) PO Q6-8H as needed 03/27/2017 04/24/2017 Inactive hydrocodone 5 mg-linh taminophen 325 mg tablet RxNorm: 996109 1 Tablet(s) PO Q6-8H as needed 02/25/2017 03/26/2017 Inactive Protonix 40 mg table t,delayed release RxNorm: 593525 Tablet(s) Take 1 tabl et by mouth BID 02/25/2017 04/28/2017 Inactive Protonix 40 mg table t,delayed release RxNorm: 774041 Tablet(s) Take 1 tabl et by mouth BID 02/19/2017 02/18/2017 Inactive Protonix 40 mg table t,delayed release RxNorm: 674220 Tablet(s) Take 1 tabl et by mouth BID 02/19/2017 02/24/2017 Inactive lisinopril 10 mg tablet RxNorm: 265675 Take 1 tablet by mouth daily 01/29/2017 07/22/2017 Inactive - First Attempt Ref: [id number] hydrocodone 5 mg-linh taminophen 325 mg tablet RxNorm: 070564 1 Tablet(s) PO Q6-8H as needed 01/25/2017 02/24/2017 Inactive simvastatin 40 mg ta blet RxNorm: 526283 Tablet(s) Take 1 tabl et by mouth daily at bedtime 01/03/2017 12/28/2017 Inactive lisinopril 10 mg tablet RxNorm: 875824 Tablet(s) Take 1 tablet by mouth daily 01/03/2017 01/28/2017 In active Protonix 40 mg table t,delayed release RxNorm: 127833 Tablet(s) Take 1 tabl et by mouth daily 12/28/2016 02/18/2017 Inactive hydrocodone 5 mg-linh taminophen 325 mg tablet RxNorm: 292946 1 Tablet(s) PO Q6-8H as needed 12/26/2016 01/24/2017 Inactive Xanax 0.5 mg tablet RxNorm: 195399 1 Tablet(s) PO TID 12/12/2016 03/11/2017 Inactive simvastatin 40 mg ta blet RxNorm: 248913 Tablet(s) Take 1 tabl et by mouth daily at bedtime 11/30/2016 01/02/2017 Inactive simvastatin 40 mg ta blet RxNorm: 860154 Take 1 tablet by mout h daily at bedtime 11/29/2016 11/29/2016 In active - First Attempt Ref: [id number] Protonix 40 mg table t,delayed release RxNorm: 253985 Take 1 tablet by mout h daily 11/27/2016 12/27/2016 In active - First Attempt Ref: [id number] hydrocodone 5 mg-linh taminophen 325 mg tablet RxNorm: 372477 1 Tablet(s) PO Q6-8H as needed 11/26/2016 12/25/2016 Inactive hydrocodone 5 mg-linh taminophen 325 mg tablet RxNorm: 313108 1 Tablet(s) PO Q8 as needed 10/24/2016 11/25/2016 Inactive Xanax 0.5 mg tablet RxNorm: 689843 1 Tablet(s) PO TID 10/09/2016 12/25/2016 Inactive hydrocodone 5 mg-linh taminophen 325 mg tablet RxNorm: 172961 1 Tablet(s) PO Q8 as needed 09/27/2016 10/23/2016 Inactive lisinopril 10 mg tablet RxNorm: 521251 Take 1 tablet by mouth daily 09/25/2016 01/02/2017 Inactive - First Attempt Ref: [id number] Vitamin D2 50,000 un it capsule RxNorm: 335203 1 Capsule(s) PO QW 09/06/2016 No Stop Date Active hydrocodone 5 mg-linh taminophen 325 mg tablet RxNorm: 221662 1 Tablet(s) PO Q8 as needed 08/28/2016 09/26/2016 Inactive Toujeo SoloStar 300 unit/mL (1.5 mL) subcutaneous insulin pen RxNorm: 0475063 25 Unit(s) SQ QHS 08/23/2016 08/29/2017 Inactive dosage increase hydrocodone 5 mg-linh taminophen 325 mg tablet RxNorm: 364545 1 Tablet(s) PO Q8 as needed 07/26/2016 08/27/2016 Inactive Protonix 40 mg table t,delayed release RxNorm: 506843 Take 1 tablet by mout h daily 07/24/2016 11/26/2016 In active - First Attempt Ref: [id number] hydrocodone 5 mg-linh taminophen 325 mg tablet RxNorm: 246638 1 Tablet(s) PO Q8 as needed 06/19/2016 07/21/2016 Inactive Toujeo SoloStar 300 unit/mL (1.5 mL) subcutaneous insulin pen RxNorm: 7202899 32 Unit(s) SQ QHS 05/30/2016 08/22/2016 Inactive dosage increase hydrocodone 5 mg-linh taminophen 325 mg tablet RxNorm: 796903 1 Tablet(s) PO Q8 as needed 05/22/2016 06/18/2016 Inactive hydrocodone 5 mg-linh taminophen 325 mg tablet RxNorm: 448498 1 Tablet(s) PO Q8 as needed 04/18/2016 05/17/2016 Inactive Protonix 40 mg table t,delayed release RxNorm: 938771 Take 1 tablet by mout h daily 04/05/2016 07/03/2016 In active - Ref: [id number] metformin 500 mg tablet RxNorm: 557408 Take 1 tablet by mouth daily 04/04/2016 07/02/2016 Inactive - Ref: [id number] Xanax 0.5 mg tablet RxNorm: 896353 1 Tablet(s) PO TID 03/30/2016 09/25/2016 Inactive Xanax 0.5 mg tablet RxNorm: 551802 1 Tablet(s) PO TID 03/23/2016 12/25/2016 Inactive hydrocodone 5 mg-linh taminophen 325 mg tablet RxNorm: 904046 1 Tablet(s) PO Q8 as needed 03/06/2016 04/04/2016 Inactive Cipro 500 mg tablet RxNorm: 107969 1 Tablet(s) PO BID 02/24/2016 03/04/2016 Inactive Miralax 17 gram oral powder packet RxNorm: 786052 1 packet PO every oth er day 01/27/2016 No Stop Date Active hydrocodone 5 mg-linh taminophen 325 mg tablet RxNorm: 559055 1 Tablet(s) PO Q8 as needed 01/27/2016 02/25/2016 Inactive lisinopril 10 mg tablet RxNorm: 955932 1 Tablet(s) PO daily 01/12/2016 09/24/2016 Inactive simvastatin 40 mg ta blet RxNorm: 688354 1 Tablet(s) PO QHS 01/12/2016 11/28/2016 Inactive simvastatin 40 mg ta blet RxNorm: 129074 1 Tablet(s) PO QHS 01/11/2016 01/11/2016 Inactive lisinopril 10 mg tablet RxNorm: 795264 1 Tablet(s) PO daily 01/06/2016 01/11/2016 Inactive simvastatin 40 mg ta blet RxNorm: 726400 1 Tablet(s) PO daily 12/28/2015 01/10/2016 Inactive hydrocodone 5 mg-linh taminophen 325 mg tablet RxNorm: 863156 1 Tablet(s) PO Q8 as needed 12/27/2015 01/26/2016 Inactive Xanax 0.5 mg tablet RxNorm: 012879 1 Tablet(s) PO TID 11/30/2015 03/29/2016 Inactive meclizine 25 mg tablet RxNorm: 395854 1 Tablet(s) PO Q6 PRN TAKE ONE TABLET BY MOUTH EVERY 6 HOURS NEEDED 11/25/2015 02/22/2016 Inactive Toujeo SoloStar 300 unit/mL (1.5 mL) subcutaneous insulin pen RxNorm: 2664838 30 Unit(s) SQ QHS 11/25/2015 05/29/2016 Inactive dosage increase omeprazole 20 mg cap jacquelyn,delayed release RxNorm: 028178 1 Capsule(s) PO daily 10/06/2015 01/26/2016 In active Toujeo SoloStar 300 unit/mL (1.5 mL) subcutaneous insulin pen RxNorm: 2475814 35 Unit(s) SQ QHS 08/02/2015 11/24/2015 Inactive dosage increase Vitamin D2 50,000 un it capsule RxNorm: 064322 1 Capsule(s) PO QW 08/02/2015 09/05/2016 Inactive hydrocodone 5 mg-linh taminophen 325 mg tablet RxNorm: 368028 1 Tablet(s) PO Q8 as needed 07/11/2015 12/26/2015 Inactive Xanax 0.5 mg tablet RxNorm: 047301 1 Tablet(s) PO TID 06/30/2015 06/29/2015 Inactive Xanax 0.5 mg tablet RxNorm: 283478 1 Tablet(s) PO TID 06/30/2015 12/25/2015 Inactive hydrocodone 5 mg-linh taminophen 325 mg tablet RxNorm: 336402 1 Tablet(s) PO Q8 as needed 05/06/2015 07/10/2015 Inactive Symbicort 160 mcg-4. 5 mcg/actuation HFA aerosol inhaler RxNorm: 3911671 INH 04/25/2015 No Stop Date Active Levemir FlexTouch 10 0 unit/mL (3 mL) subcutaneous insulin pen RxNorm: 401561 30 Unit(s) SQ QHS 04/25/2015 11/24/2015 Inactive prednisone 20 mg tablet RxNorm: 296456 1 Tablet(s) PO BID 04/25/2015 04/29/2015 Inactive metformin 500 mg tablet RxNorm: 813163 1 Tablet(s) PO daily 04/25/2015 04/03/2016 Inactive amoxicillin 500 mg c apsule RxNorm: 560064 1 Capsule(s) PO TID 04/14/2015 04/13/2015 Inactive amoxicillin 500 mg c apsule RxNorm: 137719 1 Capsule(s) PO TID a nd recommend probiotic tid (otc) 04/14/2015 04/20/2015 Inactive Kenalog 40 mg/mL bartolome pension for injection RxNorm: 5957754 Milliliter(s) Inj 04/12/2015 04/12/2015 In active hydrocodone 5 mg-linh taminophen 325 mg tablet RxNorm: 911413 1 Tablet(s) PO Q8 as needed 03/30/2015 05/05/2015 Inactive Lantus 100 unit/mL s ubcutaneous solution RxNorm: 219643 25 Unit(s) SQ QPM 03/24/2015 04/25/2015 In active meclizine 25 mg tablet RxNorm: 927731 Tablet(s) TAKE ONE TABLET BY MOUTH EVERY 6 HOURS NEEDED 03/08/2015 04/06/2015 Inactive meclizine 25 mg tablet RxNorm: 385763 TAKE ONE TABLET BY MOUTH EVERY 6 HOURS A S NEEDED 02/25/2015 03/03/2015 Inactive Lantus 100 unit/mL s ubcutaneous solution RxNorm: 076101 20 Unit(s) SQ QPM 02/23/2015 03/23/2015 In active Lantus 100 unit/mL s ubcutaneous solution RxNorm: 018747 25 Unit(s) SQ QPM 02/23/2015 02/22/2015 In active hydrocodone 5 mg-linh taminophen 325 mg tablet RxNorm: 297805 1 Tablet(s) PO Q8 as needed 02/17/2015 03/29/2015 Inactive Xanax 0.5 mg tablet RxNorm: 779060 1 Tablet(s) PO TID 02/03/2015 06/29/2015 Inactive Lantus 100 unit/mL s ubcutaneous solution RxNorm: 005530 20 Unit(s) SQ QPM 12/29/2014 02/22/2015 In active Phenergan 12.5 mg re ctal suppository RxNorm: 607585 1 Suppository RTL Q6 PRN 12/23/2014 No Stop Date Active nausea Kenalog 40 mg/mL bartolome pension for injection RxNorm: 5890232 Milliliter(s) Inj 12/23/2014 12/23/2014 In active prednisone 20 mg tablet RxNorm: 519486 2 Tablet(s) PO daily 12/13/2014 12/17/2014 Inactive prednisone 20 mg tablet RxNorm: 052389 2 Tablet(s) PO daily 12/13/2014 12/12/2014 Inactive meclizine 25 mg tablet RxNorm: 361844 1 Tablet(s) PO Q6 PRN 12/09/2014 02/24/2015 Inactive hydrocodone 5 mg-linh taminophen 325 mg tablet RxNorm: 492700 1 Tablet(s) PO Q8 as needed 12/09/2014 02/16/2015 Inactive Vitamin B-12 1,000 m cg/mL oral drops RxNorm: 2614387 1 Milliliter(s) PO d aily No Start Date Active Alphagan P 0.1 % eye drops RxNorm: 207898 1 Drop(s) OPH BID No Start Date Active aspirin 325 mg table t,delayed release RxNorm: 653953 1 Tablet(s) PO daily No Start Date Active Tricor 145 mg tablet RxNorm: 032412 1 Tablet(s) PO daily No Start Date Active vitamin [id number] B1 oral liquid RxNorm: 1,000 Microgram(s) PO daily No Start Date Active atenolol 50 mg tablet RxNorm: 701065 1 Tablet(s) PO daily No Start Date Active Protonix 40 mg table t,delayed release RxNorm: 075296 1 Tablet(s) PO daily No Start Date 04/04/2016 Inactive glipizide 10 mg tablet RxNorm: 239509 1 Tablet(s) PO BID No Start Date 03/22/2015 Inactive Lantus 100 unit/mL s ubcutaneous solution RxNorm: 140959 15 Unit(s) SQ QPM No Start Date 12/28/2014 Inactive lisinopril 10 mg tablet RxNorm: 056070 1 Tablet(s) PO daily No Start Date 01/05/2016 Inactive Vitamin D2 50,000 un it capsule RxNorm: 590991 1 Capsule(s) PO QW No Start Date 08/01/2015 Inactive Toujeo SoloStar 300 unit/mL (1.5 mL) subcutaneous insulin pen RxNorm: 3002492 30 Unit(s) SQ QHS No Start Date 08/01/2015 Inactive simvastatin 40 mg ta blet RxNorm: 929817 1 Tablet(s) PO daily No Start Date 12/27/2015 Inactive testosterone cypiona te 200 mg/mL intramuscular oil RxNorm: 565860 1 Milliliter(s) IM monthly No Start Date 01/16/2018 Inactive hydrocodone 5 mg-linh taminophen 325 mg tablet RxNorm: 354393 1 Tablet(s) PO Q8 as needed No Start Date 12/08/2014 Inactive metformin 500 mg tablet RxNorm: 844907 1 Tablet(s) PO daily No Start Date 04/24/2015 Inactive omeprazole 20 mg cap jacquelyn,delayed release RxNorm: 980370 1 Capsule(s) PO daily No Start Date 10/05/2015 Inactive Flomax 0.4 mg capsule RxNorm: 038257 1 Capsule(s) PO daily No Start Date 03/23/2015 Inactive Medication Administered Medication Codes Instruc tions Start Date Status testosterone cypionate 200 mg/mL intramuscular oil RxNorm: 004884 Milliliter 06/24/2018 No longer Active testosterone cypionate 200 mg/mL intramuscular oil RxNorm: 292181 Milliliter 06/13/2018 No longer Active testosterone cypionate 200 mg/mL intramuscular oil RxNorm: 474489 Milliliter 06/05/2018 No longer Active testosterone cypionate 200 mg/mL intramuscular oil RxNorm: 421545 Milliliter 05/30/2018 No longer Active testosterone cypionate 200 mg/mL intramuscular oil RxNorm: 911242 Milliliter 05/22/2018 No longer Active testosterone cypionate 200 mg/mL intramuscular oil RxNorm: 332727 1/2Milliliter 05/12/2018 No longer Active testosterone cypionate 200 mg/mL intramuscular oil RxNorm: 767777 Milliliter 05/02/2018 No longer Active testosterone cypionate 200 mg/mL intramuscular oil RxNorm: 317627 0.5Milliliter 04/24/2018 No longer Active testosterone cypionate 200 mg/mL intramuscular oil RxNorm: 303038 1/2Milliliter 04/17/2018 No longer Active ketorolac 60 mg/2 mL intramuscular solution RxNorm: 9987925 Milliliter 03/07/2018 No longer Active Kenalog 40 mg/mL suspension for injection RxNorm: 4918338 1.5Milliliter 01/30/2018 No longer Active testosterone cypionate 200 mg/mL intramuscular oil RxNorm: 697388 Milliliter 01/17/2018 No longer Active Kenalog 40 mg/mL suspension for injection RxNorm: 3201164 Milliliter 04/12/2015 No longer Active Kenalog 40 mg/mL suspension for injection RxNorm: 5836754 Milliliter 12/23/2014 No longer Active Immunizations Vaccine [...] For Visit Effective Dates Notes diabetes mellitus 06/06/2018 diabetes mellitus 04/04/2018 back [...] Item Item Code Result Date Comp Metabolic Cmf042 NA 139 mEq/L 04/01/2018 Comp Metabolic Rvs037 K 4.2 mEq/L 04/01/2018 Comp Metabolic Sgg117 CL 102 mEq/L 04/01/2018 Comp Metabolic Gqc115 CO2 29.0 mEq/L 04/01/2018 Comp Metabolic Wml748 AN ION GAP 12 04/01/2018 Comp Metabolic Gcp596 GL UCOSE 87 mg/dL 04/01/2018 Comp Metabolic Jff965 Cr eat 1.1 mg/dL 04/01/2018 Comp Metabolic Xkq630 eG FR 70 ml/min/1.73m2 04/01 Comp Metabolic Xea052 BUN 21 mg/dL 04/01/2018 Comp Metabolic Vxm142 B/ C Ratio 19.4 Ratio 04/01/2018 Comp Metabolic Ydj259 CA LCIUM 9.1 mg/dL 04/01/2018 Comp Metabolic Zpz908 AL K PHOS 60 U/L 04/01/2018 Comp Metabolic Ybr713 T(SGOT) 15 U/L 04/01/2018 Comp Metabolic Yym423 AL T(SGPT) 18 U/L 04/01/2018 Comp Metabolic Utn329 BI LI T 0.4 mg/dL 04/01/2018 Comp Metabolic Dpd949 AL BUMIN 4.0 g/dL 04/01/2018 Comp Metabolic Vhj316 TP RO 6.5 g/dL 04/01/2018 Comp Metabolic Llv413 GL OB 2.5 g/dL 04/01/2018 Comp Metabolic Wcd315 A/ G Ratio 1.6 Ratio 04/01/2018 Comp Metabolic Uzg695 Os mo 280 mOsmo 04/01/2018 Lipid Ord30 [...] 101.6 fl 04/01/2018 Cbc With Differential Ord2 [place]% 6.0 % 04/01/2018 Cbc With Differential Ord2 MCH 34.3 pg 04/01/2018 Cbc With Differential Ord2 Eos% 4.5 % 04/01/2018 Cbc With Differential Ord2 MCHC 33.8 pg 04/01/2018 Cbc With Differential Ord2 PLT 213 K/ul 04/01/2018 Cbc With Differential Ord2 Baso% 0.1 % 04/01/2018 Cbc With Differential Ord2 Neut ABS# 4.96 K/ul 04/01/2018 Cbc With Differential Ord2 RDW 13.8 % 04/01/2018 Cbc With Differential Ord2 Lymph ABS# 3.25 K/ul 04/01/2018 Cbc With Differential Ord2 [place] ABS# 0.6 K/ul 04/01/2018 Cbc With Differential Ord2 Eos ABS# 0.4 K/ul 04/01/2018 Cbc With Differential Ord2 Baso ABS# 0.0 K/ul 04/01/2018 %Hba1C Xwc892 % HbA1c 96580-4 8.0 % 04/01/2018 %Hba1C Ile001 Gluc Ave 183 mg/dL 04/01/2018 Testosterone Xlk345 Testo 111.3 ng/dL 04/01/2018 Testosterone Jam046 Testo 135.4 ng/dL 01/14/2018 Cbc With Differential [...] 36.0 pg 01/14/2018 Cbc With Differential Ord2 [place]% 6.8 % 01/14/2018 Cbc With Differential Ord2 Eos% 2.0 % 01/14/2018 Cbc With Differential Ord2 MCHC 35.4 pg 01/14/2018 Cbc With Differential Ord2 Baso% 0.1 % 01/14/2018 Cbc With Differential Ord2 PLT 263 K/ul 01/14/2018 Cbc With Differential Ord2 RDW 13.3 % 01/14/2018 Cbc With Differential Ord2 Neut ABS# 8.25 K/ul 01/14/2018 Cbc With Differential Ord2 Lymph ABS# 2.71 K/ul 01/14/2018 Cbc With Differential Ord2 [place] ABS# 0.8 K/ul 01/14/2018 Cbc With Differential Ord2 Eos ABS# 0.2 K/ul 01/14/2018 Cbc With Differential Ord2 Baso ABS# 0.0 K/ul 01/14/2018 Comp Metabolic Iwm584 NA 134 mEq/L 11/20/2017 Comp Metabolic Epl741 K 4.4 mEq/L 11/20/2017 Comp Metabolic Ocm802 CL 99 mEq/L 11/20/2017 Comp Metabolic Wlm346 CO2 29.0 mEq/L 11/20/2017 Comp Metabolic Gbq564 AN ION GAP 10 11/20/2017 Comp Metabolic Zgy172 GL UCOSE 218 mg/dL 11/20/2017 Comp Metabolic Gyg872 Cr eat 1.0 mg/dL 11/20/2017 Comp Metabolic Hfu514 eG FR 78 ml/min/1.73m2 11/20 Comp Metabolic Fqq913 BUN 13 mg/dL 11/20/2017 Comp Metabolic Eva691 B/ C Ratio 13.3 Ratio 11/20/2017 Comp Metabolic Qqj344 CA LCIUM 9.0 mg/dL 11/20/2017 Comp Metabolic Tux033 AL K PHOS 71 U/L 11/20/2017 Comp Metabolic Flv892 T(SGOT) 18 U/L 11/20/2017 Comp Metabolic Cws041 AL T(SGPT) 17 U/L 11/20/2017 Comp Metabolic Scb444 BI LI T 0.4 mg/dL 11/20/2017 Comp Metabolic Umq294 AL BUMIN 4.1 g/dL 11/20/2017 Comp Metabolic Zyv685 TP RO 6.5 g/dL 11/20/2017 Comp Metabolic Rpg799 GL OB 2.4 g/dL 11/20/2017 Comp Metabolic Yld263 A/ G Ratio 1.8 Ratio 11/20/2017 Comp Metabolic Ccl976 Os mo 275 mOsmo 11/20/2017 Cbc With [...] 35.2 pg 11/20/2017 Cbc With Differential Ord2 [place]% 7.2 % 11/20/2017 Cbc With Differential Ord2 [...] 3.34 K/ul 11/20/2017 Cbc With Differential Ord2 [place] ABS# 0.6 K/ul 11/20/2017 Cbc With Differential Ord2 [place] ABS# 0.3 K/ul 11/20/2017 Cbc With Differential Ord2 Baso ABS# 0.0 K/ul 11/20/2017 Vitamin D 25 Oh [id number] VITAMIN D, 25 HYDROXY 43.72 ng/mL 11/20/2017 %Hba1C Ajx064 % HbA1c 45534-9 7.4 % 11/20/2017 %Hba1C Zxm499 Gluc Ave 166 mg/dL 11/20/2017 %Hba1C Pay339 % HbA1c 89081-4 7.2 % 08/20/2017 %Hba1C Nda813 Gluc Ave 160 mg/dL 08/20/2017 Lipid Ord30 [...] 34.7 pg 08/20/2017 Cbc With Differential Ord2 [place]% 7.6 % 08/20/2017 Cbc With Differential Ord2 [...] 2.42 K/ul 08/20/2017 Cbc With Differential Ord2 [place] ABS# 0.6 K/ul 08/20/2017 Cbc With Differential Ord2 Eos ABS# 0.3 K/ul 08/20/2017 Cbc With Differential Ord2 Baso ABS# 0.0 K/ul 08/20/2017 Tsh Ord6 hTSH II 2.27 uIU/mL 08/20/2017 Comp Metabolic Pcu911 NA 138 mEq/L 08/20/2017 Comp Metabolic Ppr715 K 4.3 mEq/L 08/20/2017 Comp Metabolic Jci281 CL 102 mEq/L 08/20/2017 Comp Metabolic Jvo020 CO2 29.0 mEq/L 08/20/2017 Comp Metabolic Bde614 AN ION GAP 11 08/20/2017 Comp Metabolic Csg573 GL UCOSE 89 mg/dL 08/20/2017 Comp Metabolic Sae370 Cr eat 1.0 mg/dL 08/20/2017 Comp Metabolic Brn123 eG FR 80 ml/min/1.73m2 08/20 Comp Metabolic Nqy607 BUN 13 mg/dL 08/20/2017 Comp Metabolic Yvu148 B/ C Ratio 13.5 Ratio 08/20/2017 Comp Metabolic Jwf008 CA LCIUM 9.2 mg/dL 08/20/2017 Comp Metabolic Uaw148 AL K PHOS 69 U/L 08/20/2017 Comp Metabolic Yak696 T(SGOT) 18 U/L 08/20/2017 Comp Metabolic Lgn221 AL T(SGPT) 19 U/L 08/20/2017 Comp Metabolic Obg267 BI LI T 0.6 mg/dL 08/20/2017 Comp Metabolic Via168 AL BUMIN 4.0 g/dL 08/20/2017 Comp Metabolic Bgk981 TP RO 6.6 g/dL 08/20/2017 Comp Metabolic Lvm300 GL OB 2.6 g/dL 08/20/2017 Comp Metabolic Wxe682 A/ G Ratio 1.5 Ratio 08/20/2017 Comp Metabolic Gmf838 Os mo 275 mOsmo 08/20/2017 Vitamin D 25 Oh Cso7260 VITAMIN D, 25 HYDROXY 30.96 ng/mL 08/20/2017 B12 Cwu604 B12 >1500.00 pg/ml 02/22/2017 Cbc With Differential [...] 35.7 pg 02/20/2017 Cbc With Differential Ord2 [place]% 6.3 % 02/20/2017 Cbc With Differential Ord2 [...] 3.19 K/ul 02/20/2017 Cbc With Differential Ord2 [place] ABS# 0.5 K/ul 02/20/2017 Cbc With Differential Ord2 Eos ABS# 0.4 K/ul 02/20/2017 Cbc With Differential Ord2 Baso ABS# 0.0 K/ul 02/20/2017 Comp Metabolic Bxk548 NA 138 mEq/L 02/20/2017 Comp Metabolic Arj593 K 4.5 mEq/L 02/20/2017 Comp Metabolic Zcr011 CL 101 mEq/L 02/20/2017 Comp Metabolic Ffd277 CO2 31.0 mEq/L 02/20/2017 Comp Metabolic Jwn720 AN ION GAP 11 02/20/2017 Comp Metabolic Gka627 GL UCOSE 120 mg/dL 02/20/2017 Comp Metabolic Rwb566 Cr eat 0.9 mg/dL 02/20/2017 Comp Metabolic Fwb263 eG FR 83 ml/min/1.73m2 02/20 Comp Metabolic Jkt467 BUN 15 mg/dL 02/20/2017 Comp Metabolic Yfq306 B/ C Ratio 16.1 Ratio 02/20/2017 Comp Metabolic Yeu238 CA LCIUM 9.1 mg/dL 02/20/2017 Comp Metabolic Tdn575 AL K PHOS 67 U/L 02/20/2017 Comp Metabolic Vfl714 T(SGOT) 15 U/L 02/20/2017 Comp Metabolic Hmu163 AL T(SGPT) 16 U/L 02/20/2017 Comp Metabolic Jae413 BI LI T 0.5 mg/dL 02/20/2017 Comp Metabolic Abj112 AL BUMIN 4.0 g/dL 02/20/2017 Comp Metabolic Tek124 TP RO 6.4 g/dL 02/20/2017 Comp Metabolic Nfd487 GL OB 2.4 g/dL 02/20/2017 Comp Metabolic Etj328 A/ G Ratio 1.7 Ratio 02/20/2017 Comp Metabolic Nbt090 Os mo 278 mOsmo 02/20/2017 Tsh Ord6 hTSH II 2.05 uIU/mL 02/20/2017 %Hba1C Bux156 % HbA1c 95281-5 7.6 % 02/20/2017 %Hba1C Qdg108 Gluc Ave 171 mg/dL 02/20/2017 Vitamin D 25 Oh Cnu9303 VITAMIN D, 25 HYDROXY 44.40 ng/mL 12/21/2016 Comp Metabolic Lrx571 NA 131 mEq/L 12/21/2016 Comp Metabolic Ecm249 K 4.2 mEq/L 12/21/2016 Comp Metabolic Xpt963 CL 97 mEq/L 12/21/2016 Comp Metabolic Emr326 CO2 27.0 mEq/L 12/21/2016 Comp Metabolic Gvb063 AN ION GAP 11 12/21/2016 Comp Metabolic Seb484 GL UCOSE 266 mg/dL 12/21/2016 Comp Metabolic Hnf764 Cr eat 0.9 mg/dL 12/21/2016 Comp Metabolic Xap610 eG FR 88 ml/min/1.73m2 12/21 Comp Metabolic Qwe942 BUN 12 mg/dL 12/21/2016 Comp Metabolic Tdn676 B/ C Ratio 13.6 Ratio 12/21/2016 Comp Metabolic Ron484 CA LCIUM 8.6 mg/dL 12/21/2016 Comp Metabolic Mxd535 AL K PHOS 69 U/L 12/21/2016 Comp Metabolic Ubc687 T(SGOT) 15 U/L 12/21/2016 Comp Metabolic Thd721 AL T(SGPT) 14 U/L 12/21/2016 Comp Metabolic Qsd519 BI LI T 0.3 mg/dL 12/21/2016 Comp Metabolic Yks007 AL BUMIN 3.7 g/dL 12/21/2016 Comp Metabolic Api789 TP RO 5.9 g/dL 12/21/2016 Comp Metabolic Tkc506 GL OB 2.2 g/dL 12/21/2016 Comp Metabolic Udm132 A/ G Ratio 1.7 Ratio 12/21/2016 Comp Metabolic Emj013 Os mo 272 mOsmo 12/21/2016 Cbc With [...] 100.9 fl 12/21/2016 Cbc With Differential Ord2 [place]% 6.9 % 12/21/2016 Cbc With Differential Ord2 MCH 34.6 pg 12/21/2016 Cbc With Differential Ord2 Eos% 3.9 % 12/21/2016 Cbc With Differential Ord2 MCHC 34.2 pg 12/21/2016 Cbc With Differential Ord2 PLT 187 K/ul 12/21/2016 Cbc With Differential Ord2 Baso% 0.4 % 12/21/2016 Cbc With Differential Ord2 Neut ABS# 2.56 K/ul 12/21/2016 Cbc With Differential Ord2 RDW 13.1 % 12/21/2016 Cbc With Differential Ord2 Lymph ABS# 2.05 K/ul 12/21/2016 Cbc With Differential Ord2 [place] ABS# 0.4 K/ul 12/21/2016 Cbc With Differential Ord2 Eos ABS# 0.2 K/ul 12/21/2016 Cbc With Differential Ord2 Baso ABS# 0.0 K/ul 12/21/2016 Comp Metabolic Imr443 NA 138 mEq/L 09/03/2016 Comp Metabolic Cqe621 K 4.5 mEq/L 09/03/2016 Comp Metabolic Jtd982 CL 102 mEq/L 09/03/2016 Comp Metabolic Kcv403 CO2 30.0 mEq/L 09/03/2016 Comp Metabolic Idy262 AN ION GAP 11 09/03/2016 Comp Metabolic Oxs344 GL UCOSE 113 mg/dL 09/03/2016 Comp Metabolic Nnv737 Cr eat 1.0 mg/dL 09/03/2016 Comp Metabolic Lrf212 eG FR 81 ml/min/1.73m2 09/03 Comp Metabolic Tni983 BUN 10 mg/dL 09/03/2016 Comp Metabolic Abw545 B/ C Ratio 10.5 Ratio 09/03/2016 Comp Metabolic Hnq589 CA LCIUM 9.1 mg/dL 09/03/2016 Comp Metabolic Jzm923 AL K PHOS 71 U/L 09/03/2016 Comp Metabolic Jwy953 T(SGOT) 18 U/L 09/03/2016 Comp Metabolic Iiq321 AL T(SGPT) 17 U/L 09/03/2016 Comp Metabolic Map290 BI LI T 0.6 mg/dL 09/03/2016 Comp Metabolic Hsg416 AL BUMIN 4.1 g/dL 09/03/2016 Comp Metabolic Wqw453 TP RO 6.4 g/dL 09/03/2016 Comp Metabolic Sco444 GL OB 2.3 g/dL 09/03/2016 Comp Metabolic Vst735 A/ G Ratio 1.8 Ratio 09/03/2016 Comp Metabolic Qkh325 Os mo 276 mOsmo 09/03/2016 Vitamin D 25 Oh Ioo2176 VITAMIN D, 25 HYDROXY 28.23 ng/mL 09/03/2016 [...] 101.9 fl 09/03/2016 Cbc With Differential Ord2 [place]% 8.9 % 09/03/2016 Cbc With Differential Ord2 [...] 3.34 K/ul 09/03/2016 Cbc With Differential Ord2 [place] ABS# 0.7 K/ul 09/03/2016 Cbc With Differential Ord2 Eos ABS# 0.4 K/ul 09/03/2016 Cbc With Differential Ord2 Baso ABS# 0.0 K/ul 09/03/2016 Lipid Ord30 CHOL 120 mg/dL 09/03/2016 Lipid Ord30 HDL 33.0 mg/dl 09/03/2016 Lipid Ord30 TRIG 161 mg/dL 09/03/2016 Lipid Ord30 LDL 55 mg/dL 09/03/2016 Lipid Ord30 C/HDL 3.6 Ratio 09/03/2016 %Hba1C Yjk153 % HbA1c 08141-1 7.5 % 09/03/2016 %Hba1C Bxv864 Gluc Ave 169 mg/dL 09/03/2016 Tsh Ord6 hTSH II 1.50 uIU/mL 05/23/2016 %Hba1C Tko854 % HbA1c 75419-7 7.6 % 05/23/2016 %Hba1C Ozi405 Gluc Ave 171 mg/dL 05/23/2016 Comp Metabolic Rxd988 NA 135 mEq/L 05/23/2016 Comp Metabolic Ota071 K 4.4 mEq/L 05/23/2016 Comp Metabolic Hzp609 CL 99 mEq/L 05/23/2016 Comp Metabolic Dyl575 CO2 28.0 mEq/L 05/23/2016 Comp Metabolic Eto480 AN ION GAP 12 05/23/2016 Comp Metabolic Frn497 GL UCOSE 257 mg/dL 05/23/2016 Comp Metabolic Qzk325 Cr eat 0.8 mg/dL 05/23/2016 Comp Metabolic Cvk772 eG FR 95 ml/min/1.73m2 05/23 Comp Metabolic Egb159 BUN 11 mg/dL 05/23/2016 Comp Metabolic Hrq527 B/ C Ratio 13.3 Ratio 05/23/2016 Comp Metabolic Bfm937 CA LCIUM 9.0 mg/dL 05/23/2016 Comp Metabolic Exy827 AL K PHOS 82 U/L 05/23/2016 Comp Metabolic Dtf088 T(SGOT) 21 U/L 05/23/2016 Comp Metabolic Bol693 AL T(SGPT) 20 U/L 05/23/2016 Comp Metabolic Ydy432 BI LI T 0.3 mg/dL 05/23/2016 Comp Metabolic Nxx513 AL BUMIN 4.0 g/dL 05/23/2016 Comp Metabolic Vtc862 TP RO 6.4 g/dL 05/23/2016 Comp Metabolic Cjy642 GL OB 2.4 g/dL 05/23/2016 Comp Metabolic Brf369 A/ G Ratio 1.6 Ratio 05/23/2016 Comp Metabolic Kui680 Os mo 278 mOsmo 05/23/2016 Cbc With [...] 34.5 pg 05/23/2016 Cbc With Differential Ord2 [place]% 6.1 % 05/23/2016 Cbc With Differential Ord2 [...] 2.38 K/ul 05/23/2016 Cbc With Differential Ord2 [place] ABS# 0.4 K/ul 05/23/2016 Cbc With Differential Ord2 Eos ABS# 0.2 K/ul 05/23/2016 Cbc With Differential Ord2 Baso ABS# 0.0 K/ul 05/23/2016 B12 Fap257 B12 597.00 pg/ml 05/23/2016 Metabolic Ord15 NA [...] 0.92 uIU/mL 07/29/2015 Vitamin D 25 Oh Oxv5551 VITAMIN D, 25 HYDROXY 26.93 ng/mL 07/29/2015 %Hba1C Msw258 % HbA1c 71850-5 8.8 % 07/29/2015 %Hba1C Ruf124 Gluc Ave 206 mg/dL 07/29/2015 Cbc With [...] Ord2 RDW 14.9 % 07/29/2015 Comp Metabolic Zrk263 NA 138 mEq/L 07/29/2015 Comp Metabolic Nwk419 K 4.4 mEq/L 07/29/2015 Comp Metabolic Oqw111 CL 102 mEq/L 07/29/2015 Comp Metabolic Ndi767 CO2 28.0 mEq/L 07/29/2015 Comp Metabolic Zhn088 AN ION GAP 12 07/29/2015 Comp Metabolic Frr482 GL UCOSE 261 mg/dL 07/29/2015 Comp Metabolic Xpg937 Cr eat 1.0 mg/dL 07/29/2015 Comp Metabolic Kcm889 eG FR 77 ml/min/1.73m2 07/29 Comp Metabolic Fuq572 BUN 13 mg/dL 07/29/2015 Comp Metabolic Qxn908 B/ C Ratio 13.0 Ratio 07/29/2015 Comp Metabolic Eih469 CA LCIUM 9.1 mg/dL 07/29/2015 Comp Metabolic Qub760 AL K PHOS 64 U/L 07/29/2015 Comp Metabolic Xeq542 T(SGOT) 20 U/L 07/29/2015 Comp Metabolic Fpv443 AL T(SGPT) 22 U/L 07/29/2015 Comp Metabolic Fmm442 BI LI T 0.4 mg/dL 07/29/2015 Comp Metabolic Uir803 AL BUMIN 4.0 g/dL 07/29/2015 Comp Metabolic Abu140 TP RO 6.1 g/dL 07/29/2015 Comp Metabolic Rpz688 GL OB 2.1 g/dL 07/29/2015 Comp Metabolic Zvn237 A/ G Ratio 1.9 Ratio 07/29/2015 Comp Metabolic Weq105 Os mo 285 mOsmo 07/29/2015 Cbc With [...] Ord2 RDW 13.1 % 05/06/2015 Comp Metabolic Trk056 NA 134 mEq/L 05/06/2015 Comp Metabolic Laj963 K 4.4 mEq/L 05/06/2015 Comp Metabolic Vpl504 CL 98 mEq/L 05/06/2015 Comp Metabolic Sgy030 CO2 29.0 mEq/L 05/06/2015 Comp Metabolic Kua324 AN ION GAP 11 05/06/2015 Comp Metabolic Npa311 GL UCOSE 321 mg/dL 05/06/2015 Comp Metabolic Kju159 Cr eat 1.0 mg/dL 05/06/2015 Comp Metabolic Zdn322 eG FR 78 ml/min/1.73m2 05/06 Comp Metabolic Qib579 BUN 20 mg/dL 05/06/2015 Comp Metabolic Fjd012 B/ C Ratio 20.4 Ratio 05/06/2015 Comp Metabolic Nal080 CA LCIUM 9.5 mg/dL 05/06/2015 Comp Metabolic Mza220 AL K PHOS 62 U/L 05/06/2015 Comp Metabolic Xex475 T(SGOT) 21 U/L 05/06/2015 Comp Metabolic Mhr867 AL T(SGPT) 37 U/L 05/06/2015 Comp Metabolic Izn266 BI LI T 0.4 mg/dL 05/06/2015 Comp Metabolic Eyz238 AL BUMIN 3.8 g/dL 05/06/2015 Comp Metabolic Yje213 TP RO 6.1 g/dL 05/06/2015 Comp Metabolic Hwf465 GL OB 2.3 g/dL 05/06/2015 Comp Metabolic Cvc962 A/ G Ratio 1.7 Ratio 05/06/2015 Comp Metabolic Rju307 Os mo 283 mOsmo 05/06/2015 Tsh Ord6 hTSH II 1.65 uIU/mL 02/18/2015 B12 Uky689 B12 605.00 pg/ml 02/18/2015 %Hba1C Dob715 % HbA1c 61237-0 8.3 % 02/18/2015 %Hba1C Dup329 Gluc Ave 192 mg/dL 02/18/2015 Cbc With [...] Ord2 RDW 13.9 % 02/17/2015 Comp Metabolic Zdb724 NA 137 mEq/L 02/17/2015 Comp Metabolic Tug641 K 4.4 mEq/L 02/17/2015 Comp Metabolic Duy360 CL 100 mEq/L 02/17/2015 Comp Metabolic Tze369 CO2 31.0 mEq/L 02/17/2015 Comp Metabolic Szp832 AN ION GAP 10 02/17/2015 Comp Metabolic Sxc530 GL UCOSE 307 mg/dL 02/17/2015 Comp Metabolic Jwh753 Cr eat 1.0 mg/dL 02/17/2015 Comp Metabolic Izu407 eG FR 74 ml/min/1.73m2 02/17 Comp Metabolic Gvo487 BUN 22 mg/dL 02/17/2015 Comp Metabolic Gog484 B/ C Ratio 21.4 Ratio 02/17/2015 Comp Metabolic Xbt137 CA LCIUM 9.5 mg/dL 02/17/2015 Comp Metabolic Xeg406 AL K PHOS 78 U/L 02/17/2015 Comp Metabolic Lna878 T(SGOT) 18 U/L 02/17/2015 Comp Metabolic Vvk953 AL T(SGPT) 32 U/L 02/17/2015 Comp Metabolic Rto602 BI LI T 0.5 mg/dL 02/17/2015 Comp Metabolic Vmc472 AL BUMIN 4.3 g/dL 02/17/2015 Comp Metabolic Mvd057 TP RO 6.7 g/dL 02/17/2015 Comp Metabolic Hwl280 GL OB 2.4 g/dL 02/17/2015 Comp Metabolic Dlf408 A/ G Ratio 1.8 Ratio 02/17/2015 Comp Metabolic Zqx701 Os mo 289 mOsmo 02/17/2015 Review of Systems System Result Effective Dates Constitutional No recent illness 06/06/2018 Constitutional No [...] 04/2015 Neurologic gait abnormality 02/17/2015 Psychiatric anxiety /0 04/2015 Psychiatric No depression 02/17/2015 Respiratory daytime [...] sounds 04/12/2015 None Full Exam - General 1995 Lymphatic [...] inspection of skin Location: face 03/07/2015 on druze, cheeks,actinic keratosis with irritation on left cheek - left druze - croptherapy on these two lesions - [...] Procedure Codes Date THER/PROPH/DIAG INJ SC/IM CPT-4: 57654 06/24/2018 THER/PROPH/DIAG INJ SC/IM CPT-4: 95944 06/13/2018 ADMIN INFLUENZA VIRU S VAC CPT-4: G0008 06/06/2018 FLU VACC PRSV FREE I NC ANTIG CPT-4: 84069 06/06/2018 THER/PROPH/DIAG INJ SC/IM CPT-4: 01904 06/05/2018 THER/PROPH/DIAG INJ SC/IM CPT-4: 67495 05/30/2018 THER/PROPH/DIAG INJ SC/IM CPT-4: 00292 05/22/2018 THER/PROPH/DIAG INJ SC/IM CPT-4: 59082 05/12/2018 THER/PROPH/DIAG INJ SC/IM CPT-4: 81724 05/02/2018 THER/PROPH/DIAG INJ SC/IM CPT-4: 98982 04/24/2018 THER/PROPH/DIAG INJ SC/IM CPT-4: 17678 04/17/2018 KETOROLAC TROMETHAMI NE INJ CPT-4: J1885 03/07/2018 URINALYSIS NONAUTO W /O SCOPE CPT-4: 09270 03/07/2018 THER/PROPH/DIAG INJ SC/IM CPT-4: 06109 02/20/2018 TRIAMCINOLONE ACET I [place] NOS CPT-4: J3301 01/30/2018 THER/PROPH/DIAG INJ SC/IM CPT-4: 61744 01/17/2018 TOBACCO-USE CARD FILER 3-[address]: 481532977 CPT-4: G0436 04/25/2017 ADMIN INFLUENZA VIRU S VAC CPT-4: G0008 04/25/2017 ADMIN PNEUMOCOCCAL V ACCINE SNOMED CT: 66542487 CPT-4: G0009 04/25/2017 PNEUMOCOCCAL VACC [address]: 38326740 CPT-4: 44370 04/25/2017 FLU VACC PRSV FREE I NC ANTIG CPT-4: 20079 04/25/2017 ADMIN INFLUENZA VIRU S VAC CPT-4: G0008 05/22/2016 FLU VACC 4 TELLY 3 YRS PLUS IM Formatting Model/CDA Sections, Assigned to/Angela Clemons SNOMED CT: 45151477 CPT-4: 67789Jdozfdp 05/22/2016 TOBACCO-USE CARD FILER 3-[address]: 344641694 CPT-4: G0436 11/25/2015 URINALYSIS NONAUTO W /O SCOPE CPT-4: 42165 05/09/2015 TRIAMCINOLONE ACET I [place] NOS CPT-4: J3301 04/12/2015 DESTRUCT PREMALG LESION CPT-4: 57829 03/07/2015 DESTRUCT PREMALG LES 2-14 CPT-4: 88431 03/07/2015 REMOVE IMPACTED EAR WAX UNI CPT-4: 00838 12/31/2014 THER/PROPH/DIAG INJ SC/IM CPT-4: 13633 12/23/2014 TRIAMCINOLONE ACET I [place] NOS CPT-4: J3301 12/23/2014 Vital Signs Date Vital 06/06/2018 Blood Pressure 1: 128/76 Code: 8480-6 BMI: 22.0 Code: 88578-9 Heart Rate 1: 81 bpm Height: 5'11" SpO2: 92% Weight: 158 lbs 04/04/2018 Blood Pressure 1: 124/70 Code: 8480-6 BMI: 20.8 Code: 70174-0 Heart Rate 1: 65 bpm Height: 5'11" SpO2: 95% Weight: 149 lbs 03/07/2018 Blood Pressure 1: 148/70 Code: 8480-6 BMI: 21.2 Code: 57000-6 Heart Rate 1: 66 bpm Height: 5'11" SpO2: 94% Weight: 152 lbs 02/20/2018 Blood Pressure 1: 134/58 Code: 8480-6 BMI: 20.5 Code: 04398-4 Heart Rate 1: 61 bpm Height: 5'11" SpO2: 92% Weight: 147 lbs 01/30/2018 Blood Pressure 1: 158/68 Code: 8480-6 BMI: 21.5 Code: 71694-9 Heart Rate 1: 71 bpm Height: 5'11" SpO2: 92% Weight: 154 lbs 01/14/2018 Blood Pressure 1: 156/70 Code: 8480-6 Height: Weight: 01/13/2018 Blood Pressure 1: 148/62 Code: 8480-6 BMI: 20.9 Code: 24804-0 Heart Rate 1: 54 bpm Height: 5'11" SpO2: 97% Weight: 150 lbs 11/19/2017 Blood Pressure 1: 150/60 Code: 8480-6 BMI: 21.8 Code: 07737-7 Heart Rate 1: 63 bpm Height: 5'11" SpO2: 98% Weight: 156 lbs 10/02/2017 Blood Pressure 1: 168/60 Code: 8480-6 BMI: 21.9 Code: 13532-6 Heart Rate 1: 52 bpm Height: 5'11" SpO2: 97% Weight: 157 lbs 07/23/2017 Blood Pressure 1: 170/70 Code: 8480-6 BMI: 21.8 Code: 85692-8 Heart Rate 1: 65 bpm Height: 5'11" SpO2: 98% Weight: 156 lbs 04/25/2017 Blood Pressure 1: 138/60 Code: 8480-6 BMI: 21.6 Code: 97002-9 Heart Rate 1: 55 bpm Height: 5'11" SpO2: 93% Weight: 155 lbs 02/19/2017 Blood Pressure 1: 138/64 Code: 8480-6 BMI: 21.3 Code: 78770-8 Heart Rate 1: 52 bpm Height: 5'11" SpO2: 96% Weight: 152 lbs 8 oz 01/21/2017 Blood Pressure 1: 160/68 Code: 8480-6 BMI: 21.3 Code: 16587-1 Heart Rate 1: 62 bpm Height: 5'11" SpO2: 96% Weight: 153 lbs 12/20/2016 Blood Pressure 1: 124/66 Code: 8480-6 BMI: 21.5 Code: 59101-6 Height: 5'11" Weight: 154 lbs 08/23/2016 Blood Pressure 1: 142/52 Code: 8480-6 BMI: 21.2 Code: 70083-3 Heart Rate 1: 54 bpm Height: 5'11" SpO2: 96% Weight: 152 lbs 05/22/2016 Blood Pressure 1: 130/76 Code: 8480-6 BMI: 21.5 Code: 82470-9 Heart Rate 1: 78 bpm Height: 5'11" SpO2: 92% Weight: 154 lbs 02/24/2016 Blood Pressure 1: 128/80 Code: 8480-6 BMI: 21.2 Code: 11708-0 Heart Rate 1: 74 bpm Height: 5'11" SpO2: 96% Weight: 152 lbs 01/27/2016 Blood Pressure 1: 144/60 Code: 8480-6 BMI: 21.2 Code: 37858-5 Heart Rate 1: 74 bpm Height: 5'11" SpO2: 97% Weight: 152 lbs 11/25/2015 Blood Pressure 1: 110/52 Code: 8480-6 BMI: 21.9 Code: 56260-6 Heart Rate 1: 65 bpm Height: 5'11" SpO2: 92% Weight: 157 lbs 07/28/2015 Blood Pressure 1: 138/62 Code: 8480-6 BMI: 21.8 Code: 28143-9 Heart Rate 1: 63 bpm Height: 5'11" SpO2: 91% Weight: 156 lbs 05/26/2015 Blood Pressure 1: 120/58 Code: 8480-6 BMI: 21.5 Code: 33434-9 Heart Rate 1: 99 bpm Height: 5'11" SpO2: 96% Weight: 154 lbs 05/06/2015 Blood Pressure 1: 120/58 Code: 8480-6 BMI: 21.2 Code: 05494-2 Heart Rate 1: 66 bpm Height: 5'11" SpO2: 96% Weight: 152 lbs 04/25/2015 Blood Pressure 1: 136/62 Code: 8480-6 BMI: 21.2 Code: 46009-4 Heart Rate 1: 63 bpm Height: 5'11" SpO2: 97% Weight: 152 lbs 04/12/2015 Blood Pressure 1: 160/58 Code: 8480-6 BMI: 21.6 Code: 47883-4 Heart Rate 1: 62 bpm Height: 5'11" Weight: 155 lbs 03/24/2015 Blood Pressure 1: 138/68 Code: 8480-6 BMI: 22.0 Code: 97315-7 Heart Rate 1: 65 bpm Height: 5'11" SpO2: 96% Weight: 158 lbs 03/07/2015 Blood Pressure 1: 116/52 Code: 8480-6 BMI: 22.2 Code: 25852-1 Heart Rate 1: 64 bpm Height: 5'11" SpO2: 97% Weight: 159 lbs 02/17/2015 Blood Pressure 1: 148/58 Code: 8480-6 BMI: 21.3 Code: 60034-9 Heart Rate 1: 63 bpm Height: 5'11" SpO2: 97% Weight: 153 lbs 12/31/2014 Blood Pressure 1: 100/60 Code: 8480-6 BMI: 21.8 Code: 26962-8 Heart Rate 1: 68 bpm Height: 5'11" Weight: 156 lbs 12/23/2014 Blood Pressure 1: 148/64 Code: 8480-6 BMI: 21.9 Code: 05226-6 Heart Rate 1: 64 bpm Height: 5'11" Weight: 157 lbs 12/09/2014 Blood Pressure 1: 152/62 Code: 8480-6 Heart Rate 1: 58 bpm SpO2: 98% Weight: 159 lbs Functional Status No Functional Status data History of Present Illness Symptom Name Status Resu lt Effective Date Notes diabetes mellitus Quality insulin dependent 06/06/2018 None [...] daily 11/25/2015 None cough [facility] 11/25/2015 None cough Quality acute 11/25/2015 [...] Encounters Encounter Performer Loca tion Codes Date ([id number]) [id number] EST. P ATIENT, LEVEL IV Diagnosis: Cellulitis of face[ICD10: L03.211] Diagnosis: Type 2 diabetes mellitus without complications[ICD10: E11.9] Diagnosis: Essential (primary) hypertension[ICD10: I10] Diagnosis: Encounter for immunization[ICD10: Z23] Karmen Ash MD, [facility] CPT-4: 66801 06/06/2018 ([id number] 53510 EST. 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 P ATIENT, LEVEL III Diagnosis: Low back pain[ICD10: M54.5] Diagnosis: Dysuria[ICD10: R30.0] Karmen Ash MD, [facility] CPT-4: 79946 03/07/2018 ([id number]) 39561 EST. 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 P ATIENT, LEVEL III Diagnosis: Chronic obstructive pulmonary disease with (acute) exacerbation[ICD10: J44.1] Karmen Ash MD, [facility] CPT-4: 13578 01/30/2018 [id number] EST. PATIENT, LEVEL II Diagnosis: Insect bite (nonvenomous), left lower leg, initial encounter[ICD10: S80.862A] Karmen Ash MD, [facility] CPT-4: 39610 01/14/2018 ([id number]) 14521 EST. P ATIENT, LEVEL IV Diagnosis: Type 2 diabetes mellitus with hyperglycemia[ICD10: E11.65] Diagnosis: Chronic obstructive pulmonary disease, unspecified[ICD10: J44.9] Diagnosis: Other fatigue[ICD10: R53.83] Karmen Ash MD, [facility] CPT- 4: 99125 01/13/2018 ([id number]) 71421 EST. P ATIENT, LEVEL IV Diagnosis: Type 2 diabetes mellitus with hyperglycemia[ICD10: E11.65] Diagnosis: Vitamin D deficiency, unspecified[ICD10: E55.9] Diagnosis: Essential (primary) hypertension[ICD10: I10] Diagnosis: Abdominal distension (gaseous)[ICD10: R14.0] Diagnosis: Drug induced constipation[ICD10: K59.03] Karmen Ash MD, [facility] CPT-4: 56125 11/19/2017 [id number] EST. PATIENT, LEVEL IV Diagnosis: Low back pain[ICD10: M54.5] Diagnosis: Chronic obstructive pulmonary disease, unspecified[ICD10: J44.9] Brunilda Ash MD, [facility] CPT-4: 36461 10/02/2017 ([id number]) 42460 EST. P ATIENT, LEVEL IV Diagnosis: Essential (primary) hypertension[ICD10: I10] Diagnosis: Type 2 diabetes mellitus with hyperglycemia[ICD10: E11.65] Diagnosis: Vitamin D deficiency, unspecified[ICD10: E55.9] Diagnosis: Mixed hyperlipidemia[ICD10: E78.2] Karmen Ash MD, [facility] CPT-4: 04303 07/23/2017 ([id number]) 59152 EST. P ATIENT, LEVEL IV Diagnosis: Essential (primary) hypertension[ICD10: I10] Diagnosis: Type 2 diabetes mellitus with hyperglycemia[ICD10: E11.65] Diagnosis: Chronic obstructive pulmonary disease, unspecified[ICD10: J44.9] Diagnosis: Nicotine dependence, unspecified, uncomplicated[ICD10: F17.200] Diagnosis: Encounter for immunization[ICD10: Z23] Karmen Ash MD, [facility] CPT-4: 31680 04/25/2017 ([id number]) 02904 EST. P ATIENT, LEVEL IV Diagnosis: Type 2 diabetes mellitus with hyperglycemia[ICD10: E11.65] Diagnosis: Essential (primary) hypertension[ICD10: I10] Diagnosis: Anemia, unspecified[ICD10: D64.9] Karmen Ash MD, [facility] CPT- 4: 31368 02/19/2017 ([id number]) 38212 EST. P ATIENT, LEVEL IV Diagnosis: Slow transit constipation[ICD10: K59.01] Diagnosis: Gastro-esophageal reflux disease without esophagitis[ICD10: K21.9] Diagnosis: Essential (primary) hypertension[ICD10: I10] Karmen Ash MD, [facility] CPT-4: 61021 01/21/2017 ([id number]) 97045 EST. P ATIENT, LEVEL IV Diagnosis: Type 2 diabetes mellitus with hyperglycemia[ICD10: E11.65] Diagnosis: Vitamin D deficiency, unspecified[ICD10: E55.9] Diagnosis: Essential (primary) hypertension[ICD10: I10] Diagnosis: Chronic obstructive pulmonary disease, unspecified[ICD10: J44.9] Karmen Ash MD, [facility] CPT-4: 31917 12/20/2016 ([id number]) 82535 EST. P ATIENT, LEVEL IV Diagnosis: Type 2 diabetes mellitus with hyperglycemia[ICD10: E11.65] Diagnosis: Essential (primary) hypertension[ICD10: I10] Diagnosis: Mixed hyperlipidemia[ICD10: E78.2] Diagnosis: Vitamin D deficiency, unspecified[ICD10: E55.9] Karmen Ash MD, [facility] CPT-4: 88272 08/23/2016 ([id number]) 67432 EST. P ATIENT, LEVEL IV Diagnosis: Type 2 diabetes mellitus with hyperglycemia[ICD10: E11.65] Diagnosis: Essential (primary) hypertension[ICD10: I10] Diagnosis: Chronic obstructive pulmonary disease, unspecified[ICD10: J44.9] Karmen Ash MD, [facility] CPT-4: 78796 05/22/2016 ([id number]) 41826 EST. P ATIENT, LEVEL III Diagnosis: Dysuria[ICD10: R30.0] Diagnosis: Essential (primary) hypertension[ICD10: I10] Karmen Ash MD, [facility] CPT-4: 65196 02/24/2016 ([id number]) 27426 EST. P ATIENT, LEVEL IV Diagnosis: Gastro-esophageal reflux disease without esophagitis[ICD10: K21.9] Diagnosis: Slow transit constipation[ICD10: K59.01] Diagnosis: Type 2 diabetes mellitus with hyperglycemia[ICD10: E11.65] Karmen Ash MD, [facility] CPT-4: 70530 01/27/2016 ([id number]) 26582 EST. P ATIENT, LEVEL IV Diagnosis: Essential (primary) hypertension[ICD10: I10] Diagnosis: Type 2 diabetes mellitus with hyperglycemia[ICD10: E11.65] Diagnosis: Vitamin D deficiency, unspecified[ICD10: E55.9] Diagnosis: Chronic obstructive pulmonary disease, unspecified[ICD10: J44.9] Diagnosis: Mixed hyperlipidemia[ICD10: E78.2] Diagnosis: Tobacco use[ICD10: Z72.0] Karmen Ash MD, [facility] CPT- 4: 26084 11/25/2015 ([id number]) 03843 EST. P ATIENT, LEVEL IV Diagnosis: Type 2 diabetes mellitus with hyperglycemia[ICD10: E11.65] Diagnosis: Essential (primary) hypertension[ICD10: I10] Diagnosis: Vitamin D deficiency, unspecified[ICD10: E55.9] Karmen Ash MD, [facility] CPT-4: 83660 07/28/2015 ([id number]) 17547 EST. P ATIENT, LEVEL III Diagnosis: Type 2 diabetes mellitus with hyperglycemia[ICD10: E11.65] Diagnosis: Essential (primary) hypertension[ICD10: I10] Violeta Ash MD [facility] CPT-4: 29357 05/26/2015 ([id number]) 86557 EST. P ATIENT, LEVEL III Diagnosis: DIABETES TYPE II[ICD9: 250.00] Diagnosis: COPD (chronic obstructive pulmonary disease)[ICD9: 496] Diagnosis: ESSENTIAL HYPERTENSION[ICD9: 401.9] Diagnosis: Cough[ICD9: 786.2] Violeta Ash MD, [facility] CPT-4: 72784 05/06/2015 ([id number]) 66490 EST. P ATIENT, LEVEL III Diagnosis: COPD (chronic obstructive pulmonary disease)[ICD9: 496] Diagnosis: DIABETES TYPE II[ICD9: 250.00] Diagnosis: Muscle ache[ICD9: 729.1] Karemn Ash MD, [facility] CPT- 4: 46792 04/25/2015 ([id number]) 18889 EST. P ATIENT, LEVEL III Diagnosis: ACTINIC KERATOSIS[ICD9: 702.0] Diagnosis: COPD (chronic obstructive pulmonary disease)[ICD9: 496] Diagnosis: DIABETES TYPE II[ICD9: 250.00] Diagnosis: ACUTE URI[ICD9: 465.9] Violeta Ash MD, [facility] CPT-4: 78675 04/12/2015 ([id number]) 29827 EST. P ATIENT, LEVEL III Diagnosis: DIABETES TYPE II[ICD9: 250.00] Violeta Ash MD, [facility] CPT-4: 20629 03/24/2015 ([id number]) 40621 EST. P ATIENT, LEVEL IV Diagnosis: DIABETES TYPE II[ICD9: 250.00] Diagnosis: Hypoglycemia[ICD9: 251.2] Diagnosis: Skin texture changes[ICD9: 782.8] Violeta Ash MD, [facility] CPT-4: 92472 03/07/2015 ([id number]) 59924 EST. P ATIENT, LEVEL IV Diagnosis: COPD (chronic obstructive pulmonary disease)[ICD9: 496] Diagnosis: Fatigue[ICD9: 780.79] Diagnosis: Insulin dependent diabetes mellitus[ICD9: 250.00] Diagnosis: Unsteady gait[ICD9: 781.2] Maame Ash MD, [facility] CPT-4: 87340 02/17/2015 ([id number]) 67996 EST. [facility] Diagnosis: BPPV (benign paroxysmal positional vertigo)[ICD9: 386.11] Diagnosis: Impacted cerumen[ICD9: 380.4] Diagnosis: ESSENTIAL HYPERTENSION[ICD9: 401.9] Diagnosis: Insulin dependent diabetes mellitus[ICD9: 250.00] [facility] CPT-4: 35372 12/23/2014 ([id number]) OFFICE [facility] - LEVEL 4 Diagnosis: Insulin dependent diabetes mellitus[ICD9: 250.00] Diagnosis: BPPV (benign paroxysmal positional vertigo)[ICD9: 386.11] Diagnosis: COPD (chronic obstructive pulmonary disease)[ICD9: 496] Diagnosis: Tobacco abuse[ICD9: 305.1] Diagnosis: Osteoarthritis[ICD9: 715.90] Karmen Ash MD, [facility] CPT- 4: 12641 12/09/2014 Plan of Care Planned Activity Notes C odes Status Date Appointment: Injection 06/24/2018 Patient Education: Patient Medication [...] in pain. 06/06/2018 Appointment: Karmen Espinal WPtel: [phone] [phone] [place] (15 min) Moderate 06/06/2018 Patient [...] months 04/04/2018 App[facility]ment[phone] (15 min) Moderate 04/04/2018 Patient Education: Patient Medication Summary Completed 04/04/2018 Care Plan: Cbc With Differential Pending 04/04/2018 Care Plan: Testosterone repeat in 2 months Pending 04/04/2018 Appointment: Karmen Espinal WPtel: [phone] [phone] (15 min) Moderate 03/25/2018 Visit Plan: Low back pain -history of kidney stone-UA negative today -increase fluids and call if pain does not resolve or if any worse. 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 01/30/2018 Appointment: Karmen Espinal WPtel: [address] [place], [place] [phone] [place] [address] (15 min) Moderate 01/30/2018 Patient Education: Patient Medication Summary Completed 01/30/2018 Appointment: Karmen Espinal WPtel: [address] [place], [place] [phone] (15 min) Moderate 01/28/2018 Appointment: Injection 01/17/2018 Patient Education: Patient Medication Summary Completed 01/17/2018 Visit Plan: Cellulitis - start oral antibiotics as directed, return to clinic as previously directed, call for acute change in symptoms, worsening redness, warmth, discharge. 01/14/2018 Appointment: Karmen Espinal WPtel: [phone] (10 min) Simple 01/14/2018 Patient Education: Patient [...] controlled. 01/13/2018 Appointment: Karmen Espinal WPtel: [phone] [phone] (15 min) Moderate 01/13/2018 Patient Education: Patient Medication Summary Completed 01/13/2018 Referral: Hugo Villatoro HPtel:[phone] Patient's informed. Referral info ned monroy. [...] change in blood pressure readings at home. Gotvvfmg-dpiayt-qxhkf to see Dr Villatoro Constipation-start linzess daily 11/19/2017 Appointment: Karmen Espinal WPtel: [phone] [phone] (30 min) Complex 11/19/2017 Patient Education: Patient Medication Summary Completed 11/19/2017 Care Plan: Referral Order bloating, nausea SNOMED-CT : 152464928 Pending 11/19/2017 Visit Plan: Low back pain- [...] acute changes. 10/02/2017 Appointment: Brunilda Maravilla WPtel: [address] [place], [place] [id number] (15 min) Moderate 10/02/2017 Patient Education: Patient [...] to become less controlled. 07/23/2017 Appointment: Karm[facility] Esipnal WPtel[phone] [phone] (30 min) Complex 07/23/2017 Patient Education: Patient [...] history 04/25/2017 Appointment: Karmen Espinal WPtel: [phone] [phone] (30 min) Complex 04/25/2017 Patient Education: Patient [...] readings are starting to become less controlled. Pgltat-javyaql-zuoho labs 02/19/2017 Appointment: Karmen Espinal WPtel: [phone] [phone] (30 min) Complex 02/19/2017 Patient Education: Patient [...] month 01/21/2017 Appointment: Karmen Espinal WPtel: [phone] [phone] (30 min) Complex 01/21/2017 Patient Education: Patient Medication Summary Completed 01/21/2017 Patient Education: Smoking and Tobacco Addiction Completed 01/21/2017 Patient Education: Hypertension Completed 01/21/2017 Care Plan: Referral Order SNOMED-CT : [id number] Pending 01/21/2017 Visit Plan: Diabetes Mellitus - [...] WPtel: [phone] (30 min) Complex 12/20/2016 Patient Education: Patient Medication Summary Completed 12/20/2016 Patient Education: Smoking and Tobacco Addiction Completed 12/20/2016 Patient Education: Hypertension Completed 12/20/2016 Appointment: Karmen Espinal WPtel: [phone] [phone] (30 min) Complex 09/06/2016 Visit Plan: Diabetes [...] level 08/23/2016 Appointment: Karmen Espinal WPtel: [phone] [phone] (30 min) Complex 08/23/2016 Patient Education: [...] changes. 05/22/2016 Appointment: Karmen Espinal WPtel: [phone] [phone] (30 min) Complex 05/22/2016 Patient Education: Patient Medication Summary Completed 05/22/2016 Patient Education: Smoking and Tobacco Addiction Completed 05/22/2016 Care Plan: Cbc With Differential Ordered 05/22/2016 Care Plan: %Hba1C LOIN C : 66360-1 Ordered 05/22/2016 Care Plan: Tsh Ordered 05/22/2016 [...] update 02/24/2016 Appointment: Karmen Espinal WPtel: [phone] [phone] (30 min) Complex 02/24/2016 Patient Education: [...] [facility]el: [phone] [phone] (30 min) Complex 01/27/2016 Patient Education: Patient [...] COPD-sample of [facility] Hyperlipidemia - pt has been counseled [...] Completed 05/06/2015 Visit Plan: COPD EXACERBATION - JR. JAVA DEVELOPER D is a chronic problem for this [...] POTENTIAL SIDE EFFECTS AND WORSENING OF SYMPTOMS. Fivpojxa-bqnbpisb-EIFM SIMVASTATIN X 2 WEEKS AND CALL WITH [...] Care Plan: COMPLETE CBC AUTOMATED LOINC : 66279-1 Ordered 03/24/2015 Visit Plan: Diabetes Mellitus - [...] removal. 03/07/2015 Appointment: Violeta Ash WPtel: [phone] (15 min) Moderate 03/07/2015 Patient Education: [...] Care Plan: COMPLETE CBC AUTOMATED LOINC : 21192-5 Ordered 12/23/2014 Visit Plan: BPPV - Benign [...] next appt 12/09/2014 Appointment: Karmen Espinal WPtel: [address] [place], [place] [phone] [place] ([place]) New Patient 12/09/2014 Patient Education: Patient Medication Summary Completed 12/09/2014 Patient Education: .Amazing charts Parox ysmal positional vertigo Completed 12/09/2014 Patient Education: Smoking and Tobacco Addiction Completed 12/09/2014 Referral: Hugo Villatoro HPtel:[phone] [facility] Referral Appointment Requested Referral: Luis Donohue Referral [...] patient is stable, monitor for acute changes. CHECK UA TORADOL INCREASE PO FLUIDS STRETCHES [...] - referral to Dr. Donohue for removal. CALL IF THE KENALOG SHOT DOES NOT [...] are starting to become less controlled. . Cellulitis - start oral antibiotics as [...] readings are starting to become less controlled. Vfzxxs-ahpxqpu-ubonq labs . COPD -recent pneum onia-symptoms have [...] is stable, monitor for acute changes. Symbicort 2 puffs tw ice daily . [...] POTENTIAL SIDE EFFECTS AND WORSENING OF SYMPTOMS. Byrhnvbf-ajgstuja-DDXW SIMVASTATIN X 2 WEEKS AND CALL WITH [...] in 1 month . Diabetes Mellitus - controlled - per [...] medications. Vitamin d deficiency-check vitamin d level Refer to Dr Irving marino or evaluation [...] change in blood pressure readings at home. Oimcsbyo-rbitph-hbgqc to see Dr Villatoro Constipation-start linzess daily RESTART SIMVASTATIN START TOUJEO AT 30 UNITS [...] low dose CT chest-60 pack/year history . Hypertension - wel l controlled - [...]
--- OUTSIDE RECORDS SUMMARY | 2020-03-29 09:39 | XMS REPORT | CCD ---
Author Author Dick Espinal Organization Violeta Ash MD, [facility] Address [address] [place] [address] Phone Care Team Providers Care Nailer Operator Name Role Phone PP Unavailable CCM Unavailable Summary Purpose Interface Exchange Insurance Providers Payer name Policy type / Coverage type Covered green party ID Effective Begin Date Effective End Date WPS Medicare Part B Medicare Part B [id number] Unknown Unknown [employer] Medicar e Part B [id number] Unknown Unkn own Family history Father Diagnosis Age At Onset Cancer Unknown Mother Diagnosis Age At Onset Cancer Unknown Social History Social History Element Codes Description Effective Dates Marital status Unknown M arried 12/09/2014 Employment Unknown Retir ed 12/09/[address]: 00540914 Currently smokes tobacco 12/09/2014 Number of years using tobacco Unknown > 50 12/09/2014 Number of cigarettes/day Unknown 30 (Pack and a half) 12/09/[address]: 351420464 Never drinks alcohol 12/09/2014 Allergies, Adverse Reactions, [...] cypiona te 200 mg/mL intramuscular oil RxNorm: 886026 Milliliter(s) IM 06/24/2018 06/24/2018 In active hydrocodone 5 mg-linh taminophen 325 mg tablet RxNorm: 083235 1 Tablet(s) PO Q6-8H as needed 06/23/2018 07/17/2018 Active testosterone cypiona te 200 mg/mL intramuscular oil RxNorm: 312782 Milliliter(s) IM 06/13/2018 06/13/2018 In active testosterone cypiona te 200 mg/mL intramuscular oil RxNorm: 387374 Milliliter(s) IM 06/05/2018 06/05/2018 In active testosterone cypiona te 200 mg/mL intramuscular oil RxNorm: 049279 1/2 Milliliter(s) IM weekly 05/30/2018 09/26/2018 Active testosterone cypiona te 200 mg/mL intramuscular oil RxNorm: 708057 Milliliter(s) IM 05/30/2018 05/30/2018 In active testosterone cypiona te 200 mg/mL intramuscular oil RxNorm: 959747 Milliliter(s) IM 05/22/2018 05/22/2018 In active hydrocodone 5 mg-linh taminophen 325 mg tablet RxNorm: 234319 1 Tablet(s) PO Q6-8H as needed 05/20/2018 06/13/2018 Inactive testosterone cypiona te 200 mg/mL intramuscular oil RxNorm: 254015 1/2 Milliliter(s) IM 05/12/2018 05/12/2018 Inactive testosterone cypiona te 200 mg/mL intramuscular oil RxNorm: 669900 Milliliter(s) IM 05/02/2018 05/02/2018 In active testosterone cypiona te 200 mg/mL intramuscular oil RxNorm: 681756 1/2 Milliliter(s) IM weekly 04/24/2018 05/29/2018 Inactive testosterone cypiona te 200 mg/mL intramuscular oil RxNorm: 410258 0.5 Milliliter(s) IM 04/24/2018 04/24/2018 Inactive hydrocodone 5 mg-linh taminophen 325 mg tablet RxNorm: 936242 1 Tablet(s) PO Q6-8H as needed 04/22/2018 05/16/2018 Inactive testosterone cypiona te 200 mg/mL intramuscular oil RxNorm: 361238 1/2 Milliliter(s) IM 04/17/2018 04/17/2018 Inactive testosterone cypiona te 200 mg/mL intramuscular oil RxNorm: 378602 1/2 Milliliter(s) IM weekly 04/16/2018 04/23/2018 Inactive Jardiance 10 mg tablet RxNorm: 7773243 1 Tablet(s) PO daily 04/04/2018 12/29/2018 Active Protonix 40 mg table t,delayed release RxNorm: 188681 1 Tablet(s) PO daily TAKE 1 TABLET BY MOUTH DAILY 04/04/2018 03/29/2019 Active - Ref: [id number] testosterone cypiona te 200 mg/mL intramuscular oil RxNorm: 788781 1 Milliliter(s) IM monthly 04/04/2018 04/15/2018 Inactive hydrocodone 5 mg-linh taminophen 325 mg tablet RxNorm: 382313 1 Tablet(s) PO Q6-8H as needed 03/19/2018 04/12/2018 Inactive Flomax 0.4 mg capsule RxNorm: 085776 1 Capsule(s) PO daily 03/10/2018 03/04/2019 Active Urecholine 25 mg tablet RxNorm: 371550 1 Tablet(s) PO BID 03/10/2018 07/07/2018 Active ketorolac 60 mg/2 mL intramuscular solution RxNorm: 8186323 Milliliter(s) IM 03/07/2018 03/07/2018 In active metformin 500 mg tablet RxNorm: 039535 Tablet(s) TAKE 1 TABLET BY MOUTH DAILY 02/20/2018 02/14/2019 Ac tive 1 q am and 1/2 tab q pm hydrocodone 5 mg-linh taminophen 325 mg tablet RxNorm: 905302 1 Tablet(s) PO Q6-8H as needed 02/20/2018 03/16/2018 Inactive Kenalog 40 mg/mL bartolome pension for injection RxNorm: 3686507 1.5 Milliliter(s) In j 01/30/2018 01/30/2018 In active hydrocodone 5 mg-linh taminophen 325 mg tablet RxNorm: 390253 1 Tablet(s) PO Q6-8H as needed 01/23/2018 02/16/2018 Inactive Urecholine 25 mg tablet RxNorm: 854376 1 Tablet(s) PO BID 01/22/2018 03/09/2018 Inactive Flomax 0.4 mg capsule RxNorm: 524520 1 Capsule(s) PO daily 01/22/2018 03/09/2018 Inactive Flomax 0.4 mg capsule RxNorm: 831464 1 Capsule(s) PO daily 01/22/2018 01/21/2018 Inactive Urecholine 25 mg tablet RxNorm: 454569 1 Tablet(s) PO BID 01/22/2018 01/21/2018 Inactive testosterone cypiona te 200 mg/mL intramuscular oil RxNorm: 331676 Milliliter(s) IM 01/17/2018 01/17/2018 In active testosterone cypiona te 200 mg/mL intramuscular oil RxNorm: 894978 1 Milliliter(s) IM monthly 01/17/2018 04/03/2018 Inactive lisinopril 10 mg tablet RxNorm: 287449 TAKE 1 TABLET BY MOUTH TWO TIMES DAILY 01/14/2018 01/08/2019 tive - First Attempt Ref: [id number] doxycycline hyclate 100 mg tablet RxNorm: 149414 1 Tablet(s) PO BID 01/14/2018 01/23/2018 Inactive nystatin 100,000 uni t/mL oral suspension RxNorm: 297122 4 Milliliter(s) PO QI D Swish and swallow 01/08/2018 01/07/2018 Inactive nystatin 100,000 uni t/mL oral suspension RxNorm: 151270 4 Milliliter(s) PO QI D Swish and swallow 01/08/2018 01/12/2018 Inactive Xanax 0.5 mg tablet RxNorm: 862437 1 Tablet(s) PO TID 01/08/2018 04/07/2018 Inactive simvastatin 40 mg ta blet RxNorm: 440952 TAKE 1 TABLET BY MOUT H DAILY AT BEDTIME 12/30/2017 12/24/2018 tive - First Attempt Ref: [id number] metformin 500 mg tablet RxNorm: 564410 TAKE 1 TABLET BY MOUTH DAILY 12/30/2017 02/19/2018 Inactive - First Attempt Ref: [id number] hydrocodone 5 mg-linh taminophen 325 mg tablet RxNorm: 809474 1 Tablet(s) PO Q6-8H as needed 12/25/2017 01/18/2018 Inactive Protonix 40 mg table t,delayed release RxNorm: 346354 Tablet(s) TAKE 1 TABL ET BY MOUTH DAILY 11/20/2017 04/03/2018 Inactive - Ref: [id number] Linzess 72 mcg capsule RxNorm: 2365064 1 Capsule(s) PO daily 11/19/2017 No Stop Date Active hydrocodone 5 mg-linh taminophen 325 mg tablet RxNorm: 384485 1 Tablet(s) PO Q6-8H as needed 11/19/2017 12/13/2017 Inactive hydrocodone 5 mg-linh taminophen 325 mg tablet RxNorm: 427687 1 Tablet(s) PO Q6-8H as needed 10/28/2017 11/18/2017 Inactive Xanax 0.5 mg tablet RxNorm: 087123 1 Tablet(s) PO TID 10/25/2017 12/22/2017 Inactive Xanax 0.5 mg tablet RxNorm: 165267 TAKE ONE TABLET BY MOUTH THREE TIMES A D AY 10/24/2017 12/22/2017 In active hydrocodone 5 mg-linh taminophen 325 mg tablet RxNorm: 115863 1 Tablet(s) PO Q6-8H as needed 09/30/2017 10/24/2017 Inactive Protonix 40 mg table t,delayed release RxNorm: 449413 TAKE 1 TABLET BY MOUT H DAILY 09/16/2017 11/19/2017 In active - Ref: [id number] Toujeo SoloStar 300 unit/mL (1.5 mL) subcutaneous insulin pen RxNorm: 6673428 35 Unit(s) SQ QHS 08/30/2017 No Stop Date Active dosage increase hydrocodone 5 mg-linh taminophen 325 mg tablet RxNorm: 665727 1 Tablet(s) PO Q6-8H as needed 08/28/2017 09/29/2017 Inactive hydrocodone 5 mg-linh taminophen 325 mg tablet RxNorm: 678425 1 Tablet(s) PO Q6-8H as needed 07/23/2017 08/24/2017 Inactive lisinopril 10 mg tablet RxNorm: 404772 1 Tablet(s) PO BID Take 1 tablet by mout h daily 07/23/2017 01/13/2018 Inactive hydrocodone 5 mg-linh taminophen 325 mg tablet RxNorm: 832587 1 Tablet(s) PO Q6-8H as needed 06/27/2017 07/22/2017 Inactive Xanax 0.5 mg tablet RxNorm: 705443 1 Tablet(s) PO TID 06/18/2017 10/25/2017 Inactive hydrocodone 5 mg-linh taminophen 325 mg tablet RxNorm: 921067 1 Tablet(s) PO Q6-8H as needed 05/27/2017 06/26/2017 Inactive Levaquin 500 mg tablet RxNorm: 366280 1 Tablet(s) PO daily 05/24/2017 05/23/2017 Inactive Levaquin 500 mg tablet RxNorm: 423719 1 Tablet(s) PO daily 05/24/2017 05/30/2017 Inactive Protonix 40 mg table t,delayed release RxNorm: 984627 Take 1 tablet by mout h daily 04/29/2017 09/15/2017 In active - Ref: [id number] hydrocodone 5 mg-linh taminophen 325 mg tablet RxNorm: 809242 1 Tablet(s) PO Q6-8H as needed 04/25/2017 05/26/2017 Inactive metformin 500 mg tablet RxNorm: 475986 Take 1 tablet by mouth daily 04/08/2017 12/29/2017 Inactive - First Attempt Ref: [id number] hydrocodone 5 mg-linh taminophen 325 mg tablet RxNorm: 833126 1 Tablet(s) PO Q6-8H as needed 03/27/2017 04/24/2017 Inactive hydrocodone 5 mg-linh taminophen 325 mg tablet RxNorm: 775170 1 Tablet(s) PO Q6-8H as needed 02/25/2017 03/26/2017 Inactive Protonix 40 mg table t,delayed release RxNorm: 164889 Tablet(s) Take 1 tabl et by mouth BID 02/25/2017 04/28/2017 Inactive Protonix 40 mg table t,delayed release RxNorm: 532484 Tablet(s) Take 1 tabl et by mouth BID 02/19/2017 02/18/2017 Inactive Protonix 40 mg table t,delayed release RxNorm: 714169 Tablet(s) Take 1 tabl et by mouth BID 02/19/2017 02/24/2017 Inactive lisinopril 10 mg tablet RxNorm: 175266 Take 1 tablet by mouth daily 01/29/2017 07/22/2017 Inactive - First Attempt Ref: [id number] hydrocodone 5 mg-linh taminophen 325 mg tablet RxNorm: 302697 1 Tablet(s) PO Q6-8H as needed 01/25/2017 02/24/2017 Inactive simvastatin 40 mg ta blet RxNorm: 345116 Tablet(s) Take 1 tabl et by mouth daily at bedtime 01/03/2017 12/28/2017 Inactive lisinopril 10 mg tablet RxNorm: 074931 Tablet(s) Take 1 tablet by mouth daily 01/03/2017 01/28/2017 In active Protonix 40 mg table t,delayed release RxNorm: 209629 Tablet(s) Take 1 tabl et by mouth daily 12/28/2016 02/18/2017 Inactive hydrocodone 5 mg-linh taminophen 325 mg tablet RxNorm: 250320 1 Tablet(s) PO Q6-8H as needed 12/26/2016 01/24/2017 Inactive Xanax 0.5 mg tablet RxNorm: 617358 1 Tablet(s) PO TID 12/12/2016 03/11/2017 Inactive simvastatin 40 mg ta blet RxNorm: 637203 Tablet(s) Take 1 tabl et by mouth daily at bedtime 11/30/2016 01/02/2017 Inactive simvastatin 40 mg ta blet RxNorm: 830353 Take 1 tablet by mout h daily at bedtime 11/29/2016 11/29/2016 In active - First Attempt Ref: [id number] Protonix 40 mg table t,delayed release RxNorm: 234818 Take 1 tablet by mout h daily 11/27/2016 12/27/2016 In active - First Attempt Ref: [id number] hydrocodone 5 mg-linh taminophen 325 mg tablet RxNorm: 499775 1 Tablet(s) PO Q6-8H as needed 11/26/2016 12/25/2016 Inactive hydrocodone 5 mg-linh taminophen 325 mg tablet RxNorm: 638460 1 Tablet(s) PO Q8 as needed 10/24/2016 11/25/2016 Inactive Xanax 0.5 mg tablet RxNorm: 653856 1 Tablet(s) PO TID 10/09/2016 12/25/2016 Inactive hydrocodone 5 mg-linh taminophen 325 mg tablet RxNorm: 347406 1 Tablet(s) PO Q8 as needed 09/27/2016 10/23/2016 Inactive lisinopril 10 mg tablet RxNorm: 275132 Take 1 tablet by mouth daily 09/25/2016 01/02/2017 Inactive - First Attempt Ref: [id number] Vitamin D2 50,000 un it capsule RxNorm: 697470 1 Capsule(s) PO QW 09/06/2016 No Stop Date Active hydrocodone 5 mg-linh taminophen 325 mg tablet RxNorm: 931462 1 Tablet(s) PO Q8 as needed 08/28/2016 09/26/2016 Inactive Toujeo SoloStar 300 unit/mL (1.5 mL) subcutaneous insulin pen RxNorm: 0672080 25 Unit(s) SQ QHS 08/23/2016 08/29/2017 Inactive dosage increase hydrocodone 5 mg-linh taminophen 325 mg tablet RxNorm: 234940 1 Tablet(s) PO Q8 as needed 07/26/2016 08/27/2016 Inactive Protonix 40 mg table t,delayed release RxNorm: 892077 Take 1 tablet by mout h daily 07/24/2016 11/26/2016 In active - First Attempt Ref: [id number] hydrocodone 5 mg-linh taminophen 325 mg tablet RxNorm: 272366 1 Tablet(s) PO Q8 as needed 06/19/2016 07/21/2016 Inactive Toujeo SoloStar 300 unit/mL (1.5 mL) subcutaneous insulin pen RxNorm: 9309879 32 Unit(s) SQ QHS 05/30/2016 08/22/2016 Inactive dosage increase hydrocodone 5 mg-linh taminophen 325 mg tablet RxNorm: 261669 1 Tablet(s) PO Q8 as needed 05/22/2016 06/18/2016 Inactive hydrocodone 5 mg-linh taminophen 325 mg tablet RxNorm: 834654 1 Tablet(s) PO Q8 as needed 04/18/2016 05/17/2016 Inactive Protonix 40 mg table t,delayed release RxNorm: 105981 Take 1 tablet by mout h daily 04/05/2016 07/03/2016 In active - Ref: [id number] metformin 500 mg tablet RxNorm: 943238 Take 1 tablet by mouth daily 04/04/2016 07/02/2016 Inactive - Ref: [id number] Xanax 0.5 mg tablet RxNorm: 745190 1 Tablet(s) PO TID 03/30/2016 09/25/2016 Inactive Xanax 0.5 mg tablet RxNorm: 190432 1 Tablet(s) PO TID 03/23/2016 12/25/2016 Inactive hydrocodone 5 mg-linh taminophen 325 mg tablet RxNorm: 052427 1 Tablet(s) PO Q8 as needed 03/06/2016 04/04/2016 Inactive Cipro 500 mg tablet RxNorm: 684026 1 Tablet(s) PO BID 02/24/2016 03/04/2016 Inactive Miralax 17 gram oral powder packet RxNorm: 883538 1 packet PO every oth er day 01/27/2016 No Stop Date Active hydrocodone 5 mg-linh taminophen 325 mg tablet RxNorm: 545480 1 Tablet(s) PO Q8 as needed 01/27/2016 02/25/2016 Inactive lisinopril 10 mg tablet RxNorm: 732564 1 Tablet(s) PO daily 01/12/2016 09/24/2016 Inactive simvastatin 40 mg ta blet RxNorm: 231254 1 Tablet(s) PO QHS 01/12/2016 11/28/2016 Inactive simvastatin 40 mg ta blet RxNorm: 151039 1 Tablet(s) PO QHS 01/11/2016 01/11/2016 Inactive lisinopril 10 mg tablet RxNorm: 060202 1 Tablet(s) PO daily 01/06/2016 01/11/2016 Inactive simvastatin 40 mg ta blet RxNorm: 994322 1 Tablet(s) PO daily 12/28/2015 01/10/2016 Inactive hydrocodone 5 mg-linh taminophen 325 mg tablet RxNorm: 726220 1 Tablet(s) PO Q8 as needed 12/27/2015 01/26/2016 Inactive Xanax 0.5 mg tablet RxNorm: 275798 1 Tablet(s) PO TID 11/30/2015 03/29/2016 Inactive meclizine 25 mg tablet RxNorm: 161475 1 Tablet(s) PO Q6 PRN TAKE ONE TABLET BY MOUTH EVERY 6 HOURS NEEDED 11/25/2015 02/22/2016 Inactive Toujeo SoloStar 300 unit/mL (1.5 mL) subcutaneous insulin pen RxNorm: 3059848 30 Unit(s) SQ QHS 11/25/2015 05/29/2016 Inactive dosage increase omeprazole 20 mg cap jacquelyn,delayed release RxNorm: 521792 1 Capsule(s) PO daily 10/06/2015 01/26/2016 In active Toujeo SoloStar 300 unit/mL (1.5 mL) subcutaneous insulin pen RxNorm: 1627717 35 Unit(s) SQ QHS 08/02/2015 11/24/2015 Inactive dosage increase Vitamin D2 50,000 un it capsule RxNorm: 785410 1 Capsule(s) PO QW 08/02/2015 09/05/2016 Inactive hydrocodone 5 mg-linh taminophen 325 mg tablet RxNorm: 024839 1 Tablet(s) PO Q8 as needed 07/11/2015 12/26/2015 Inactive Xanax 0.5 mg tablet RxNorm: 322659 1 Tablet(s) PO TID 06/30/2015 06/29/2015 Inactive Xanax 0.5 mg tablet RxNorm: 519973 1 Tablet(s) PO TID 06/30/2015 12/25/2015 Inactive hydrocodone 5 mg-linh taminophen 325 mg tablet RxNorm: 470647 1 Tablet(s) PO Q8 as needed 05/06/2015 07/10/2015 Inactive Symbicort 160 mcg-4. 5 mcg/actuation HFA aerosol inhaler RxNorm: 2221642 INH 04/25/2015 No Stop Date Active Levemir FlexTouch 10 0 unit/mL (3 mL) subcutaneous insulin pen RxNorm: 989892 30 Unit(s) SQ QHS 04/25/2015 11/24/2015 Inactive prednisone 20 mg tablet RxNorm: 802622 1 Tablet(s) PO BID 04/25/2015 04/29/2015 Inactive metformin 500 mg tablet RxNorm: 332991 1 Tablet(s) PO daily 04/25/2015 04/03/2016 Inactive amoxicillin 500 mg c apsule RxNorm: 326089 1 Capsule(s) PO TID 04/14/2015 04/13/2015 Inactive amoxicillin 500 mg c apsule RxNorm: 932790 1 Capsule(s) PO TID a nd recommend probiotic tid (otc) 04/14/2015 04/20/2015 Inactive Kenalog 40 mg/mL bartolome pension for injection RxNorm: 4211875 Milliliter(s) Inj 04/12/2015 04/12/2015 In active hydrocodone 5 mg-linh taminophen 325 mg tablet RxNorm: 892157 1 Tablet(s) PO Q8 as needed 03/30/2015 05/05/2015 Inactive Lantus 100 unit/mL s ubcutaneous solution RxNorm: 772528 25 Unit(s) SQ QPM 03/24/2015 04/25/2015 In active meclizine 25 mg tablet RxNorm: 745775 Tablet(s) TAKE ONE TABLET BY MOUTH EVERY 6 HOURS NEEDED 03/08/2015 04/06/2015 Inactive meclizine 25 mg tablet RxNorm: 168955 TAKE ONE TABLET BY MOUTH EVERY 6 HOURS A S NEEDED 02/25/2015 03/03/2015 Inactive Lantus 100 unit/mL s ubcutaneous solution RxNorm: 987873 20 Unit(s) SQ QPM 02/23/2015 03/23/2015 In active Lantus 100 unit/mL s ubcutaneous solution RxNorm: 856205 25 Unit(s) SQ QPM 02/23/2015 02/22/2015 In active hydrocodone 5 mg-linh taminophen 325 mg tablet RxNorm: 027152 1 Tablet(s) PO Q8 as needed 02/17/2015 03/29/2015 Inactive Xanax 0.5 mg tablet RxNorm: 961174 1 Tablet(s) PO TID 02/03/2015 06/29/2015 Inactive Lantus 100 unit/mL s ubcutaneous solution RxNorm: 450441 20 Unit(s) SQ QPM 12/29/2014 02/22/2015 In active Phenergan 12.5 mg re ctal suppository RxNorm: 090775 1 Suppository RTL Q6 PRN 12/23/2014 No Stop Date Active nausea Kenalog 40 mg/mL bartolome pension for injection RxNorm: 0788386 Milliliter(s) Inj 12/23/2014 12/23/2014 In active prednisone 20 mg tablet RxNorm: 570469 2 Tablet(s) PO daily 12/13/2014 12/17/2014 Inactive prednisone 20 mg tablet RxNorm: 979359 2 Tablet(s) PO daily 12/13/2014 12/12/2014 Inactive meclizine 25 mg tablet RxNorm: 753413 1 Tablet(s) PO Q6 PRN 12/09/2014 02/24/2015 Inactive hydrocodone 5 mg-linh taminophen 325 mg tablet RxNorm: 973504 1 Tablet(s) PO Q8 as needed 12/09/2014 02/16/2015 Inactive Vitamin B-12 1,000 m cg/mL oral drops RxNorm: 3430601 1 Milliliter(s) PO d aily No Start Date Active Alphagan P 0.1 % eye drops RxNorm: 969636 1 Drop(s) OPH BID No Start Date Active aspirin 325 mg table t,delayed release RxNorm: 212893 1 Tablet(s) PO daily No Start Date Active Tricor 145 mg tablet RxNorm: 917109 1 Tablet(s) PO daily No Start Date Active vitamin [id number] B1 oral liquid RxNorm: 1,000 Microgram(s) PO daily No Start Date Active atenolol 50 mg tablet RxNorm: 844800 1 Tablet(s) PO daily No Start Date Active Protonix 40 mg table t,delayed release RxNorm: 511485 1 Tablet(s) PO daily No Start Date 04/04/2016 Inactive glipizide 10 mg tablet RxNorm: 836070 1 Tablet(s) PO BID No Start Date 03/22/2015 Inactive Lantus 100 unit/mL s ubcutaneous solution RxNorm: 067616 15 Unit(s) SQ QPM No Start Date 12/28/2014 Inactive lisinopril 10 mg tablet RxNorm: 638432 1 Tablet(s) PO daily No Start Date 01/05/2016 Inactive Vitamin D2 50,000 un it capsule RxNorm: 506789 1 Capsule(s) PO QW No Start Date 08/01/2015 Inactive Toujeo SoloStar 300 unit/mL (1.5 mL) subcutaneous insulin pen RxNorm: 5996127 30 Unit(s) SQ QHS No Start Date 08/01/2015 Inactive simvastatin 40 mg ta blet RxNorm: 514664 1 Tablet(s) PO daily No Start Date 12/27/2015 Inactive testosterone cypiona te 200 mg/mL intramuscular oil RxNorm: 468218 1 Milliliter(s) IM monthly No Start Date 01/16/2018 Inactive hydrocodone 5 mg-linh taminophen 325 mg tablet RxNorm: 052171 1 Tablet(s) PO Q8 as needed No Start Date 12/08/2014 Inactive metformin 500 mg tablet RxNorm: 256279 1 Tablet(s) PO daily No Start Date 04/24/2015 Inactive omeprazole 20 mg cap jacquelyn,delayed release RxNorm: 197542 1 Capsule(s) PO daily No Start Date 10/05/2015 Inactive Flomax 0.4 mg capsule RxNorm: 265658 1 Capsule(s) PO daily No Start Date 03/23/2015 Inactive Medication Administered Medication Codes Instruc tions Start Date Status testosterone cypionate 200 mg/mL intramuscular oil RxNorm: 250417 Milliliter 06/24/2018 No longer Active testosterone cypionate 200 mg/mL intramuscular oil RxNorm: 647691 Milliliter 06/13/2018 No longer Active testosterone cypionate 200 mg/mL intramuscular oil RxNorm: 757251 Milliliter 06/05/2018 No longer Active testosterone cypionate 200 mg/mL intramuscular oil RxNorm: 460843 Milliliter 05/30/2018 No longer Active testosterone cypionate 200 mg/mL intramuscular oil RxNorm: 199534 Milliliter 05/22/2018 No longer Active testosterone cypionate 200 mg/mL intramuscular oil RxNorm: 838652 /2Milliliter 05/12/2018 No longer Active testosterone cypionate 200 mg/mL intramuscular oil RxNorm: 568190 Milliliter 05/02/2018 No longer Active testosterone cypionate 200 mg/mL intramuscular oil RxNorm: 775736 0.5Milliliter 04/24/2018 No longer Active testosterone cypionate 200 mg/mL intramuscular oil RxNorm: 281520 1/2Milliliter 04/17/2018 No longer Active ketorolac 60 mg/2 mL intramuscular solution RxNorm: 9956453 Milliliter 03/07/2018 No longer Active Kenalog 40 mg/mL suspension for injection RxNorm: 0043296 1.5Milliliter 01/30/2018 No longer Active testosterone cypionate 200 mg/mL intramuscular oil RxNorm: 534043 Milliliter 01/17/2018 No longer Active Kenalog 40 mg/mL suspension for injection RxNorm: 4181207 Milliliter 04/12/2015 No longer Active Kenalog 40 mg/mL suspension for injection RxNorm: 8100700 Milliliter 12/23/2014 No longer Active Immunizations Vaccine [...] Item Item Code Result Date Comp Metabolic Abk259 NA 139 mEq/L 04/01/2018 Comp Metabolic Ote219 K 4.2 mEq/L 04/01/2018 Comp Metabolic Cwl077 CL 102 mEq/L 04/01/2018 Comp Metabolic Mel689 CO2 29.0 mEq/L 04/01/2018 Comp Metabolic Lff960 AN ION GAP 12 04/01/2018 Comp Metabolic Auj717 GL UCOSE 87 mg/dL 04/01/2018 Comp Metabolic Rts965 Cr eat 1.1 mg/dL 04/01/2018 Comp Metabolic Ycx264 eG FR 70 ml/min/1.73m2 04/01 Comp Metabolic Ohc177 BUN 21 mg/dL 04/01/2018 Comp Metabolic Abi033 B/ C Ratio 19.4 Ratio 04/01/2018 Comp Metabolic Ubg619 CA LCIUM 9.1 mg/dL 04/01/2018 Comp Metabolic Mou101 AL K PHOS 60 U/L 04/01/2018 Comp Metabolic Nck763 T(SGOT) 15 U/L 04/01/2018 Comp Metabolic Lcj525 AL T(SGPT) 18 U/L 04/01/2018 Comp Metabolic Mlr122 BI LI T 0.4 mg/dL 04/01/2018 Comp Metabolic Wcn138 AL BUMIN 4.0 g/dL 04/01/2018 Comp Metabolic Gpj480 TP RO 6.5 g/dL 04/01/2018 Comp Metabolic Xdc918 GL OB 2.5 g/dL 04/01/2018 Comp Metabolic Rui827 A/ G Ratio 1.6 Ratio 04/01/2018 Comp Metabolic Pyp078 Os mo 280 mOsmo 04/01/2018 Lipid Ord30 [...] 101.6 fl 04/01/2018 Cbc With Differential Ord2 [place]% 6.0 % 04/01/2018 Cbc With Differential Ord2 [...] 3.25 K/ul 04/01/2018 Cbc With Differential Ord2 [place] ABS# 0.6 K/ul 04/01/2018 Cbc With Differential Ord2 Eos ABS# 0.4 K/ul 04/01/2018 Cbc With Differential Ord2 Baso ABS# 0.0 K/ul 04/01/2018 %Hba1C Esi036 % HbA1c 81560-7 8.0 % 04/01/2018 %Hba1C Aaw964 Gluc Ave 183 mg/dL 04/01/2018 Testosterone Oop712 Testo 111.3 ng/dL 04/01/2018 Testosterone Kjd808 Testo 135.4 ng/dL 01/14/2018 Cbc With Differential [...] 36.0 pg 01/14/2018 Cbc With Differential Ord2 [place]% 6.8 % 01/14/2018 Cbc With Differential Ord2 [...] 2.71 K/ul 01/14/2018 Cbc With Differential Ord2 [place] ABS# 0.8 K/ul 01/14/2018 Cbc With Differential Ord2 Eos ABS# 0.2 K/ul 01/14/2018 Cbc With Differential Ord2 Baso ABS# 0.0 K/ul 01/14/2018 Comp Metabolic Urn507 NA 134 mEq/L 11/20/2017 Comp Metabolic Mem348 K 4.4 mEq/L 11/20/2017 Comp Metabolic Wsm780 CL 99 mEq/L 11/20/2017 Comp Metabolic Bil404 CO2 29.0 mEq/L 11/20/2017 Comp Metabolic Mnk602 AN ION GAP 10 11/20/2017 Comp Metabolic Jso699 GL UCOSE 218 mg/dL 11/20/2017 Comp Metabolic Hms008 Cr eat 1.0 mg/dL 11/20/2017 Comp Metabolic Agm589 eG FR 78 ml/min/1.73m2 11/20 Comp Metabolic Gts033 BUN 13 mg/dL 11/20/2017 Comp Metabolic Rre391 B/ C Ratio 13.3 Ratio 11/20/2017 Comp Metabolic Ccv648 CA LCIUM 9.0 mg/dL 11/20/2017 Comp Metabolic Jpe653 AL K PHOS 71 U/L 11/20/2017 Comp Metabolic Igh819 T(SGOT) 18 U/L 11/20/2017 Comp Metabolic Aut107 AL T(SGPT) 17 U/L 11/20/2017 Comp Metabolic Dlh118 BI LI T 0.4 mg/dL 11/20/2017 Comp Metabolic Btb874 AL BUMIN 4.1 g/dL 11/20/2017 Comp Metabolic Yal809 TP RO 6.5 g/dL 11/20/2017 Comp Metabolic Ozb486 GL OB 2.4 g/dL 11/20/2017 Comp Metabolic Axj436 A/ G Ratio 1.8 Ratio 11/20/2017 Comp Metabolic Iuh863 Os mo 275 mOsmo 11/20/2017 Cbc With [...] 35.2 pg 11/20/2017 Cbc With Differential Ord2 [place]% 7.2 % 11/20/2017 Cbc With Differential Ord2 [...] 3.34 K/ul 11/20/2017 Cbc With Differential Ord2 [place] ABS# 0.6 K/ul 11/20/2017 Cbc With Differential Ord2 Eos ABS# 0.3 K/ul 11/20/2017 Cbc With Differential Ord2 Baso ABS# 0.0 K/ul 11/20/2017 Vitamin D 25 Oh Fki2711 VITAMIN D, 25 HYDROXY 43.72 ng/mL 11/20/2017 %Hba1C Cos563 % HbA1c 93247-3 7.4 % 11/20/2017 %Hba1C Dkf460 Gluc Ave 166 mg/dL 11/20/2017 %Hba1C Imj389 % HbA1c 74373-4 7.2 % 08/20/2017 %Hba1C Htt849 Gluc Ave 160 mg/dL 08/20/2017 Lipid Ord30 [...] 34.7 pg 08/20/2017 Cbc With Differential Ord2 [place]% 7.6 % 08/20/2017 Cbc With Differential Ord2 [...] 2.42 K/ul 08/20/2017 Cbc With Differential Ord2 Bladen ABS# 0.6 K/ul 08/20/2017 Cbc With Differential Ord2 Eos ABS# 0.3 K/ul 08/20/2017 Cbc With Differential Ord2 Baso ABS# 0.0 K/ul 08/20/2017 Tsh Ord6 hTSH II 2.27 uIU/mL 08/20/2017 Comp Metabolic Evn130 NA 138 mEq/L 08/20/2017 Comp Metabolic Mix180 K 4.3 mEq/L 08/20/2017 Comp Metabolic Gxy841 CL 102 mEq/L 08/20/2017 Comp Metabolic Rit001 CO2 29.0 mEq/L 08/20/2017 Comp Metabolic Ejz246 AN ION GAP 11 08/20/2017 Comp Metabolic Vbu206 GL UCOSE 89 mg/dL 08/20/2017 Comp Metabolic Pjh351 Cr eat 1.0 mg/dL 08/20/2017 Comp Metabolic Mfk597 eG FR 80 ml/min/1.73m2 08/20 Comp Metabolic Nmn155 BUN 13 mg/dL 08/20/2017 Comp Metabolic Crs182 B/ C Ratio 13.5 Ratio 08/20/2017 Comp Metabolic Ylu923 CA LCIUM 9.2 mg/dL 08/20/2017 Comp Metabolic Cmq896 AL K PHOS 69 U/L 08/20/2017 Comp Metabolic Iso272 T(SGOT) 18 U/L 08/20/2017 Comp Metabolic Foz755 AL T(SGPT) 19 U/L 08/20/2017 Comp Metabolic Yba085 BI LI T 0.6 mg/dL 08/20/2017 Comp Metabolic Vrs887 AL BUMIN 4.0 g/dL 08/20/2017 Comp Metabolic Kqu905 TP RO 6.6 g/dL 08/20/2017 Comp Metabolic Ltl736 GL OB 2.6 g/dL 08/20/2017 Comp Metabolic Bba827 A/ G Ratio 1.5 Ratio 08/20/2017 Comp Metabolic Edp250 Os mo 275 mOsmo 08/20/2017 Vitamin D 25 Oh Aoq4415 VITAMIN D, 25 HYDROXY 30.96 ng/mL 08/20/2017 B12 Gsb093 B12 >1500.00 pg/ml 02/22/2017 Cbc With Differential [...] 35.7 pg 02/20/2017 Cbc With Differential Ord2 Bl[place]% 6.3 % 02/20/2017 Cbc With Differential Ord2 [...] 3.19 K/ul 02/20/2017 Cbc With Differential Ord2 [place] ABS# 0.5 K/ul 02/20/2017 Cbc With Differential Ord2 Eos ABS# 0.4 K/ul 02/20/2017 Cbc With Differential Ord2 Baso ABS# 0.0 K/ul 02/20/2017 Comp Metabolic Ugv600 NA 138 mEq/L 02/20/2017 Comp Metabolic Kip525 K 4.5 mEq/L 02/20/2017 Comp Metabolic Srr823 CL 101 mEq/L 02/20/2017 Comp Metabolic Iim570 CO2 31.0 mEq/L 02/20/2017 Comp Metabolic Rlz553 AN ION GAP 11 02/20/2017 Comp Metabolic Cxi856 GL UCOSE 120 mg/dL 02/20/2017 Comp Metabolic Wdc604 Cr eat 0.9 mg/dL 02/20/2017 Comp Metabolic Qbh431 eG FR 83 ml/min/1.73m2 02/20 Comp Metabolic Tgz406 BUN 15 mg/dL 02/20/2017 Comp Metabolic Rri827 B/ C Ratio 16.1 Ratio 02/20/2017 Comp Metabolic Smh320 CA LCIUM 9.1 mg/dL 02/20/2017 Comp Metabolic Fgl390 AL K PHOS 67 U/L 02/20/2017 Comp Metabolic Kjd516 T(SGOT) 15 U/L 02/20/2017 Comp Metabolic Auc301 AL T(SGPT) 16 U/L 02/20/2017 Comp Metabolic Pyu716 BI LI T 0.5 mg/dL 02/20/2017 Comp Metabolic Qpz799 AL BUMIN 4.0 g/dL 02/20/2017 Comp Metabolic Eis148 TP RO 6.4 g/dL 02/20/2017 Comp Metabolic Lws865 GL OB 2.4 g/dL 02/20/2017 Comp Metabolic Ftx189 A/ G Ratio 1.7 Ratio 02/20/2017 Comp Metabolic Zor725 Os mo 278 mOsmo 02/20/2017 Tsh Ord6 hTSH II 2.05 uIU/mL 02/20/2017 %Hba1C Rql673 % HbA1c 89752-9 7.6 % 02/20/2017 %Hba1C Ayh539 Gluc Ave 171 mg/dL 02/20/2017 Vitamin D 25 Oh Oux4994 VITAMIN D, 25 HYDROXY 44.40 ng/mL 12/21/2016 Comp Metabolic Fmk751 NA 131 mEq/L 12/21/2016 Comp Metabolic Kdh529 K 4.2 mEq/L 12/21/2016 Comp Metabolic Tgg335 CL 97 mEq/L 12/21/2016 Comp Metabolic Nwt851 CO2 27.0 mEq/L 12/21/2016 Comp Metabolic Dqk051 AN ION GAP 11 12/21/2016 Comp Metabolic Ygt254 GL UCOSE 266 mg/dL 12/21/2016 Comp Metabolic Edr237 Cr eat 0.9 mg/dL 12/21/2016 Comp Metabolic Noh916 eG FR 88 ml/min/1.73m2 12/21 Comp Metabolic Oph228 BUN 12 mg/dL 12/21/2016 Comp Metabolic Orl772 B/ C Ratio 13.6 Ratio 12/21/2016 Comp Metabolic Nfs789 CA LCIUM 8.6 mg/dL 12/21/2016 Comp Metabolic Wrz554 AL K PHOS 69 U/L 12/21/2016 Comp Metabolic Zib270 T(SGOT) 15 U/L 12/21/2016 Comp Metabolic Zze583 AL T(SGPT) 14 U/L 12/21/2016 Comp Metabolic Cra720 BI LI T 0.3 mg/dL 12/21/2016 Comp Metabolic Cvf788 AL BUMIN 3.7 g/dL 12/21/2016 Comp Metabolic Uxk839 TP RO 5.9 g/dL 12/21/2016 Comp Metabolic Dyi546 GL OB 2.2 g/dL 12/21/2016 Comp Metabolic Cws534 A/ G Ratio 1.7 Ratio 12/21/2016 Comp Metabolic Mmb157 Os mo 272 mOsmo 12/21/2016 Cbc With [...] 100.9 fl 12/21/2016 Cbc With Differential Ord2 Bl[place]% 6.9 % 12/21/2016 Cbc With Differential Ord2 [...] 2.05 K/ul 12/21/2016 Cbc With Differential Ord2 [place] ABS# 0.4 K/ul 12/21/2016 Cbc With Differential Ord2 Eos ABS# 0.2 K/ul 12/21/2016 Cbc With Differential Ord2 Baso ABS# 0.0 K/ul 12/21/2016 Comp Metabolic Gog352 NA 138 mEq/L 09/03/2016 Comp Metabolic Npf632 K 4.5 mEq/L 09/03/2016 Comp Metabolic Xou829 CL 102 mEq/L 09/03/2016 Comp Metabolic Iyu004 CO2 30.0 mEq/L 09/03/2016 Comp Metabolic Ktv732 AN ION GAP 11 09/03/2016 Comp Metabolic Vkc978 GL UCOSE 113 mg/dL 09/03/2016 Comp Metabolic Vqx354 Cr eat 1.0 mg/dL 09/03/2016 Comp Metabolic Ucm490 eG FR 81 ml/min/1.73m2 09/03 Comp Metabolic Wyc500 BUN 10 mg/dL 09/03/2016 Comp Metabolic Vdq350 B/ C Ratio 10.5 Ratio 09/03/2016 Comp Metabolic Idh259 CA LCIUM 9.1 mg/dL 09/03/2016 Comp Metabolic Xep783 AL K PHOS 71 U/L 09/03/2016 Comp Metabolic Drg885 T(SGOT) 18 U/L 09/03/2016 Comp Metabolic Mex517 AL T(SGPT) 17 U/L 09/03/2016 Comp Metabolic Hxy802 BI LI T 0.6 mg/dL 09/03/2016 Comp Metabolic Eqx531 AL BUMIN 4.1 g/dL 09/03/2016 Comp Metabolic Uno276 TP RO 6.4 g/dL 09/03/2016 Comp Metabolic Jgl879 GL OB 2.3 g/dL 09/03/2016 Comp Metabolic Xhl648 A/ G Ratio 1.8 Ratio 09/03/2016 Comp Metabolic Yvl557 Os mo 276 mOsmo 09/03/2016 Vitamin D 25 Oh Geb3184 VITAMIN D, 25 HYDROXY 28.23 ng/mL 09/03/2016 [...] 101.9 fl 09/03/2016 Cbc With Differential Ord2 [place]% 8.9 % 09/03/2016 Cbc With Differential Ord2 [...] 3.34 K/ul 09/03/2016 Cbc With Differential Ord2 [place] ABS# 0.7 K/ul 09/03/2016 Cbc With Differential Ord2 Eos ABS# 0.4 K/ul 09/03/2016 Cbc With Differential Ord2 Baso ABS# 0.0 K/ul 09/03/2016 Lipid Ord30 CHOL 120 mg/dL 09/03/2016 Lipid Ord30 HDL 33.0 mg/dl 09/03/2016 Lipid Ord30 TRIG 161 mg/dL 09/03/2016 Lipid Ord30 LDL 55 mg/dL 09/03/2016 Lipid Ord30 C/HDL 3.6 Ratio 09/03/2016 %Hba1C Saz071 % HbA1c 11103-4 7.5 % 09/03/2016 %Hba1C Auu730 Gluc Ave 169 mg/dL 09/03/2016 Tsh Ord6 hTSH II 1.50 uIU/mL 05/23/2016 %Hba1C Mlc589 % HbA1c 81734-3 7.6 % 05/23/2016 %Hba1C Yda154 Gluc Ave 171 mg/dL 05/23/2016 Comp Metabolic Nnf963 NA 135 mEq/L 05/23/2016 Comp Metabolic Inc495 K 4.4 mEq/L 05/23/2016 Comp Metabolic Kil087 CL 99 mEq/L 05/23/2016 Comp Metabolic Gup855 CO2 28.0 mEq/L 05/23/2016 Comp Metabolic Quf587 AN ION GAP 12 05/23/2016 Comp Metabolic Vhe967 GL UCOSE 257 mg/dL 05/23/2016 Comp Metabolic Pwr246 Cr eat 0.8 mg/dL 05/23/2016 Comp Metabolic Ovj815 eG FR 95 ml/min/1.73m2 05/23 Comp Metabolic Vfe141 BUN 11 mg/dL 05/23/2016 Comp Metabolic Vct630 B/ C Ratio 13.3 Ratio 05/23/2016 Comp Metabolic Unb532 CA LCIUM 9.0 mg/dL 05/23/2016 Comp Metabolic Jrb747 AL K PHOS 82 U/L 05/23/2016 Comp Metabolic Zne461 T(SGOT) 21 U/L 05/23/2016 Comp Metabolic Xqm710 AL T(SGPT) 20 U/L 05/23/2016 Comp Metabolic Cfj886 BI LI T 0.3 mg/dL 05/23/2016 Comp Metabolic Wed978 AL BUMIN 4.0 g/dL 05/23/2016 Comp Metabolic Zjl540 TP RO 6.4 g/dL 05/23/2016 Comp Metabolic Slx265 GL OB 2.4 g/dL 05/23/2016 Comp Metabolic Hdi548 A/ G Ratio 1.6 Ratio 05/23/2016 Comp Metabolic Vci792 Os mo 278 mOsmo 05/23/2016 Cbc With [...] 34.5 pg 05/23/2016 Cbc With Differential Ord2 [place]% 6.1 % 05/23/2016 Cbc With Differential Ord2 [...] 2.38 K/ul 05/23/2016 Cbc With Differential Ord2 [place] ABS# 0.4 K/ul 05/23/2016 Cbc With Differential Ord2 Eos ABS# 0.2 K/ul 05/23/2016 Cbc With Differential Ord2 Baso ABS# 0.0 K/ul 05/23/2016 B12 Mkl160 B12 597.00 pg/ml 05/23/2016 Metabolic Ord15 NA [...] 0.92 uIU/mL 07/29/2015 Vitamin D 25 Oh Xxl4775 VITAMIN D, 25 HYDROXY 26.93 ng/mL 07/29/2015 %Hba1C Hkg567 % HbA1c 63658-1 8.8 % 07/29/2015 %Hba1C Axx903 Gluc Ave 206 mg/dL 07/29/2015 Cbc With [...] Ord2 RDW 14.9 % 07/29/2015 Comp Metabolic Fkw566 NA 138 mEq/L 07/29/2015 Comp Metabolic Rio281 K 4.4 mEq/L 07/29/2015 Comp Metabolic Mrx466 CL 102 mEq/L 07/29/2015 Comp Metabolic Sxf026 CO2 28.0 mEq/L 07/29/2015 Comp Metabolic Jhs566 AN ION GAP 12 07/29/2015 Comp Metabolic Rzv369 GL UCOSE 261 mg/dL 07/29/2015 Comp Metabolic Zvq167 Cr eat 1.0 mg/dL 07/29/2015 Comp Metabolic Uon920 eG FR 77 ml/min/1.73m2 07/29 Comp Metabolic Kqg202 BUN 13 mg/dL 07/29/2015 Comp Metabolic Waa109 B/ C Ratio 13.0 Ratio 07/29/2015 Comp Metabolic Lyx460 CA LCIUM 9.1 mg/dL 07/29/2015 Comp Metabolic Hws304 AL K PHOS 64 U/L 07/29/2015 Comp Metabolic Ffk303 T(SGOT) 20 U/L 07/29/2015 Comp Metabolic Ulm437 AL T(SGPT) 22 U/L 07/29/2015 Comp Metabolic Dfd647 BI LI T 0.4 mg/dL 07/29/2015 Comp Metabolic Hnn781 AL BUMIN 4.0 g/dL 07/29/2015 Comp Metabolic Joz162 TP RO 6.1 g/dL 07/29/2015 Comp Metabolic Wje693 GL OB 2.1 g/dL 07/29/2015 Comp Metabolic Cgi843 A/ G Ratio 1.9 Ratio 07/29/2015 Comp Metabolic Lsc803 Os mo 285 mOsmo 07/29/2015 Cbc With [...] Ord2 RDW 13.1 % 05/06/2015 Comp Metabolic Wnj791 NA 134 mEq/L 05/06/2015 Comp Metabolic Dfx445 K 4.4 mEq/L 05/06/2015 Comp Metabolic Bjf832 CL 98 mEq/L 05/06/2015 Comp Metabolic Atf204 CO2 29.0 mEq/L 05/06/2015 Comp Metabolic Rct519 AN ION GAP 11 05/06/2015 Comp Metabolic Nbe546 GL UCOSE 321 mg/dL 05/06/2015 Comp Metabolic Lpg746 Cr eat 1.0 mg/dL 05/06/2015 Comp Metabolic Qxw487 eG FR 78 ml/min/1.73m2 05/06 Comp Metabolic Ilc966 BUN 20 mg/dL 05/06/2015 Comp Metabolic Mao117 B/ C Ratio 20.4 Ratio 05/06/2015 Comp Metabolic Mru211 CA LCIUM 9.5 mg/dL 05/06/2015 Comp Metabolic Gll422 AL K PHOS 62 U/L 05/06/2015 Comp Metabolic Keq672 T(SGOT) 21 U/L 05/06/2015 Comp Metabolic Taw087 AL T(SGPT) 37 U/L 05/06/2015 Comp Metabolic Ylj762 BI LI T 0.4 mg/dL 05/06/2015 Comp Metabolic Lbh699 AL BUMIN 3.8 g/dL 05/06/2015 Comp Metabolic Clt393 TP RO 6.1 g/dL 05/06/2015 Comp Metabolic Djf951 GL OB 2.3 g/dL 05/06/2015 Comp Metabolic Xva780 A/ G Ratio 1.7 Ratio 05/06/2015 Comp Metabolic Ddy305 Os mo 283 mOsmo 05/06/2015 Tsh Ord6 hTSH II 1.65 uIU/mL 02/18/2015 B12 Khc629 B12 605.00 pg/ml 02/18/2015 %Hba1C Beg033 % HbA1c 81584-2 8.3 % 02/18/2015 %Hba1C Dam388 Gluc Ave 192 mg/dL 02/18/2015 Cbc With [...] Ord2 RDW 13.9 % 02/17/2015 Comp Metabolic Emv440 NA 137 mEq/L 02/17/2015 Comp Metabolic Iqa271 K 4.4 mEq/L 02/17/2015 Comp Metabolic Oty484 CL 100 mEq/L 02/17/2015 Comp Metabolic Nsy170 CO2 31.0 mEq/L 02/17/2015 Comp Metabolic Nmo202 AN ION GAP 10 02/17/2015 Comp Metabolic Paf908 GL UCOSE 307 mg/dL 02/17/2015 Comp Metabolic Wsl547 Cr eat 1.0 mg/dL 02/17/2015 Comp Metabolic Hyr916 eG FR 74 ml/min/1.73m2 02/17 Comp Metabolic Bsy285 BUN 22 mg/dL 02/17/2015 Comp Metabolic Qqz606 B/ C Ratio 21.4 Ratio 02/17/2015 Comp Metabolic Eoe777 CA LCIUM 9.5 mg/dL 02/17/2015 Comp Metabolic Wsn059 AL K PHOS 78 U/L 02/17/2015 Comp Metabolic Esu299 T(SGOT) 18 U/L 02/17/2015 Comp Metabolic Tvn709 AL T(SGPT) 32 U/L 02/17/2015 Comp Metabolic Wev967 BI LI T 0.5 mg/dL 02/17/2015 Comp Metabolic Gun642 AL BUMIN 4.3 g/dL 02/17/2015 Comp Metabolic Sxv358 TP RO 6.7 g/dL 02/17/2015 Comp Metabolic Tqa300 GL OB 2.4 g/dL 02/17/2015 Comp Metabolic Yyj229 A/ G Ratio 1.8 Ratio 02/17/2015 Comp Metabolic Caq593 Os mo 289 mOsmo 02/17/2015 Review of [...] gingiva 07/23/2017 None Full Exam - General 1995 Ears/Nose/Throat lips/teeth/gingiva Overall: no masses 07/23/2017 None [...] inspection of skin Location: face 03/07/2015 on anabaptist, cheeks,actinic keratosis with irritation on left cheek - left anabaptist - croptherapy on these two lesions - [...] Procedure Codes Date THER/PROPH/DIAG INJ SC/IM CPT-4: 68902 06/24/2018 THER/PROPH/DIAG INJ SC/IM CPT-4: 53064 06/13/2018 ADMIN INFLUENZA VIRU S VAC CPT-4: G0008 06/06/2018 FLU VACC PRSV FREE I NC ANTIG CPT-4: 38727 06/06/2018 THER/PROPH/DIAG INJ SC/IM CPT-4: 04719 06/05/2018 THER/PROPH/DIAG INJ SC/IM CPT-4: 41142 05/30/2018 THER/PROPH/DIAG INJ SC/IM CPT-4: 75018 05/22/2018 THER/PROPH/DIAG INJ SC/IM CPT-4: 08404 05/12/2018 THER/PROPH/DIAG INJ SC/IM CPT-4: 07109 05/02/2018 THER/PROPH/DIAG INJ SC/IM CPT-4: 46128 04/24/2018 THER/PROPH/DIAG INJ SC/IM CPT-4: 53299 04/17/2018 KETOROLAC TROMETHAMI NE INJ CPT-4: J1885 03/07/2018 URINALYSIS NONAUTO W /O SCOPE CPT-4: 78683 03/07/2018 THER/PROPH/DIAG INJ SC/IM CPT-4: 54035 02/20/2018 TRIAMCINOLONE ACET I [place] NOS CPT-4: J3301 01/30/2018 THER/PROPH/DIAG INJ SC/IM CPT-4: 03006 01/17/2018 TOBACCO-USE RUMPER 3-[address]: 389478851 CPT-4: G0436 04/25/2017 ADMIN INFLUENZA VIRU S VAC CPT-4: G0008 04/25/2017 ADMIN PNEUMOCOCCAL V ACCINE SNOMED CT: 35616117 CPT-4: G0009 04/25/2017 PNEUMOCOCCAL VACC [address]: 45278602 CPT-4: 35924 04/25/2017 FLU VACC PRSV FREE I NC ANTIG CPT-4: 61018 04/25/2017 ADMIN INFLUENZA VIRU S VAC CPT-4: G0008 05/22/2016 FLU VACC 4 TELLY 3 YRS PLUS IM Formatting Model/CDA Sections, Assigned to/Angela Clemons SNOMED CT: 87811931 CPT-4: 59735Ohelmqt 05/22/2016 TOBACCO-USE RUMPER 3-[address]: 368099042 CPT-4: G0436 11/25/2015 URINALYSIS NONAUTO W /O SCOPE CPT-4: 05522 05/09/2015 TRIAMCINOLONE ACET I [place] NOS CPT-4: J3301 04/12/2015 DESTRUCT PREMALG LESION CPT-4: 43570 03/07/2015 DESTRUCT PREMALG LES 2-14 CPT-4: 56571 03/07/2015 REMOVE IMPACTED EAR WAX UNI CPT-4: 28586 12/31/2014 THER/PROPH/DIAG INJ SC/IM CPT-4: 53407 12/23/2014 TRIAMCINOLONE ACET I [place] NOS CPT-4: J3301 12/23/2014 Vital Signs Date Vital 06/06/2018 Blood Pressure 1: 128/76 Code: 8480-6 BMI: 22.0 Code: 06537-8 Heart Rate 1: 81 bpm Height: 5'11" SpO2: 92% Weight: 158 lbs 04/04/2018 Blood Pressure 1: 124/70 Code: 8480-6 BMI: 20.8 Code: 21183-3 Heart Rate 1: 65 bpm Height: 5'11" SpO2: 95% Weight: 149 lbs 03/07/2018 Blood Pressure 1: 148/70 Code: 8480-6 BMI: 21.2 Code: 06251-8 Heart Rate 1: 66 bpm Height: 5'11" SpO2: 94% Weight: 152 lbs 02/20/2018 Blood Pressure 1: 134/58 Code: 8480-6 BMI: 20.5 Code: 82983-0 Heart Rate 1: 61 bpm Height: 5'11" SpO2: 92% Weight: 147 lbs 01/30/2018 Blood Pressure 1: 158/68 Code: 8480-6 BMI: 21.5 Code: 98553-3 Heart Rate 1: 71 bpm Height: 5'11" SpO2: 92% Weight: 154 lbs 01/14/2018 Blood Pressure 1: 156/70 Code: 8480-6 Height: Weight: 01/13/2018 Blood Pressure 1: 148/62 Code: 8480-6 BMI: 20.9 Code: 08310-2 Heart Rate 1: 54 bpm Height: 5'11" SpO2: 97% Weight: 150 lbs 11/19/2017 Blood Pressure 1: 150/60 Code: 8480-6 BMI: 21.8 Code: 42929-0 Heart Rate 1: 63 bpm Height: 5'11" SpO2: 98% Weight: 156 lbs 10/02/2017 Blood Pressure 1: 168/60 Code: 8480-6 BMI: 21.9 Code: 04330-2 Heart Rate 1: 52 bpm Height: 5'11" SpO2: 97% Weight: 157 lbs 07/23/2017 Blood Pressure 1: 170/70 Code: 8480-6 BMI: 21.8 Code: 99966-8 Heart Rate 1: 65 bpm Height: 5'11" SpO2: 98% Weight: 156 lbs 04/25/2017 Blood Pressure 1: 138/60 Code: 8480-6 BMI: 21.6 Code: 60604-1 Heart Rate 1: 55 bpm Height: 5'11" SpO2: 93% Weight: 155 lbs 02/19/2017 Blood Pressure 1: 138/64 Code: 8480-6 BMI: 21.3 Code: 97693-6 Heart Rate 1: 52 bpm Height: 5'11" SpO2: 96% Weight: 152 lbs 8 oz 01/21/2017 Blood Pressure 1: 160/68 Code: 8480-6 BMI: 21.3 Code: 10108-1 Heart Rate 1: 62 bpm Height: 5'11" SpO2: 96% Weight: 153 lbs 12/20/2016 Blood Pressure 1: 124/66 Code: 8480-6 BMI: 21.5 Code: 30946-5 Height: 5'11" Weight: 154 lbs 08/23/2016 Blood Pressure 1: 142/52 Code: 8480-6 BMI: 21.2 Code: 61310-0 Heart Rate 1: 54 bpm Height: 5'11" SpO2: 96% Weight: 152 lbs 05/22/2016 Blood Pressure 1: 130/76 Code: 8480-6 BMI: 21.5 Code: 90196-6 Heart Rate 1: 78 bpm Height: 5'11" SpO2: 92% Weight: 154 lbs 02/24/2016 Blood Pressure 1: 128/80 Code: 8480-6 BMI: 21.2 Code: 32929-4 Heart Rate 1: 74 bpm Height: 5'11" SpO2: 96% Weight: 152 lbs 01/27/2016 Blood Pressure 1: 144/60 Code: 8480-6 BMI: 21.2 Code: 14623-4 Heart Rate 1: 74 bpm Height: 5'11" SpO2: 97% Weight: 152 lbs 11/25/2015 Blood Pressure 1: 110/52 Code: 8480-6 BMI: 21.9 Code: 07539-9 Heart Rate 1: 65 bpm Height: 5'11" SpO2: 92% Weight: 157 lbs 07/28/2015 Blood Pressure 1: 138/62 Code: 8480-6 BMI: 21.8 Code: 61579-6 Heart Rate 1: 63 bpm Height: 5'11" SpO2: 91% Weight: 156 lbs 05/26/2015 Blood Pressure 1: 120/58 Code: 8480-6 BMI: 21.5 Code: 70933-5 Heart Rate 1: 99 bpm Height: 5'11" SpO2: 96% Weight: 154 lbs 05/06/2015 Blood Pressure 1: 120/58 Code: 8480-6 BMI: 21.2 Code: 09967-1 Heart Rate 1: 66 bpm Height: 5'11" SpO2: 96% Weight: 152 lbs 04/25/2015 Blood Pressure 1: 136/62 Code: 8480-6 BMI: 21.2 Code: 42823-0 Heart Rate 1: 63 bpm Height: 5'11" SpO2: 97% Weight: 152 lbs 04/12/2015 Blood Pressure 1: 160/58 Code: 8480-6 BMI: 21.6 Code: 14281-9 Heart Rate 1: 62 bpm Height: 5'11" Weight: 155 lbs 03/24/2015 Blood Pressure 1: 138/68 Code: 8480-6 BMI: 22.0 Code: 24439-1 Heart Rate 1: 65 bpm Height: 5'11" SpO2: 96% Weight: 158 lbs 03/07/2015 Blood Pressure 1: 116/52 Code: 8480-6 BMI: 22.2 Code: 50436-3 Heart Rate 1: 64 bpm Height: 5'11" SpO2: 97% Weight: 159 lbs 02/17/2015 Blood Pressure 1: 148/58 Code: 8480-6 BMI: 21.3 Code: 77637-3 Heart Rate 1: 63 bpm Height: 5'11" SpO2: 97% Weight: 153 lbs 12/31/2014 Blood Pressure 1: 100/60 Code: 8480-6 BMI: 21.8 Code: 96226-5 Heart Rate 1: 68 bpm Height: 5'11" Weight: 156 lbs 12/23/2014 Blood Pressure 1: 148/64 Code: 8480-6 BMI: 21.9 Code: 72237-7 Heart Rate 1: 64 bpm Height: 5'11" [...] Quality chr onic 06/06/2018 None hypertension Quality [facility] hypertension 06/06/2018 None hypertension Onset and Resolution [...] Encounters Encounter Performer Loca tion Codes Date ([id number]) [id number] EST. P ATIENT, LEVEL IV Diagnosis: Cellulitis of face[ICD10: L03.211] Diagnosis: Type 2 diabetes mellitus without complications[ICD10: E11.9] Diagnosis: Essential (primary) hypertension[ICD10: I10] Diagnosis: Encounter for immunization[ICD10: Z23] Karmen Ash MD, [facility] CPT-4: 13494 06/06/2018 [id number]) 60314 EST. 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 P ATIENT, LEVEL III Diagnosis: Low back pain[ICD10: M54.5] Diagnosis: Dysuria[ICD10: R30.0] [facility] CPT-4: 39711 03/07/2018 [id number]) [id number] EST. 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 P ATIENT, LEVEL III Diagnosis: Chronic obstructive pulmonary disease with (acute) exacerbation[ICD10: J44.1] Karmen Ash MD, [facility] CPT-4: 59546 01/30/2018 [id number] EST. PATIENT, LEVEL II Diagnosis: Insect bite (nonvenomous), left lower leg, initial encounter[ICD10: S80.862A] Karmen Ash MD, [facility] CPT-4: 13646 01/14/2018 ([id number]) 01235 EST. P ATIENT, LEVEL IV Diagnosis: Type 2 diabetes mellitus with hyperglycemia[ICD10: E11.65] Diagnosis: Chronic obstructive pulmonary disease, unspecified[ICD10: J44.9] Diagnosis: Other fatigue[ICD10: R53.83] Karmen Ash MD, [facility] CPT- 4: 02498 01/13/2018 ([id number]) 66079 EST. P ATIENT, LEVEL IV Diagnosis: Type 2 diabetes mellitus with hyperglycemia[ICD10: E11.65] Diagnosis: Vitamin D deficiency, unspecified[ICD10: E55.9] Diagnosis: Essential (primary) hypertension[ICD10: I10] Diagnosis: Abdominal distension (gaseous)[ICD10: R14.0] Diagnosis: Drug induced constipation[ICD10: K59.03] Karmen Ash MD, [facility] CPT-4: 90668 11/19/2017 14294 EST. PATIENT, LEVEL IV Diagnosis: Low back pain[ICD10: M54.5] Diagnosis: Chronic obstructive pulmonary disease, unspecified[ICD10: J44.9] Brunilda Ash MD, [facility] CPT-4: 92966 10/02/2017 ([id number]) 36383 EST. P ATIENT, LEVEL IV Diagnosis: Essential (primary) hypertension[ICD10: I10] Diagnosis: Type 2 diabetes mellitus with hyperglycemia[ICD10: E11.65] Diagnosis: Vitamin D deficiency, unspecified[ICD10: E55.9] Diagnosis: Mixed hyperlipidemia[ICD10: E78.2] Karmen Ash MD, [facility] CPT-4: 24005 07/23/2017 ([id number]) 75807 EST. P ATIENT, LEVEL IV Diagnosis: Essential (primary) hypertension[ICD10: I10] Diagnosis: Type 2 diabetes mellitus with hyperglycemia[ICD10: E11.65] Diagnosis: Chronic obstructive pulmonary disease, unspecified[ICD10: J44.9] Diagnosis: Nicotine dependence, unspecified, uncomplicated[ICD10: F17.200] Diagnosis: Encounter for immunization[ICD10: Z23] Karmen Ash MD, [facility] CPT-4: 13363 04/25/2017 ([id number]) 09570 EST. P ATIENT, LEVEL IV Diagnosis: Type 2 diabetes mellitus with hyperglycemia[ICD10: E11.65] Diagnosis: Essential (primary) hypertension[ICD10: I10] Diagnosis: Anemia, unspecified[ICD10: D64.9] Karmen Ash MD, [facility] CPT- 4: 82783 02/19/2017 ([id number]) 49746 EST. P ATIENT, LEVEL IV Diagnosis: Slow transit constipation[ICD10: K59.01] Diagnosis: Gastro-esophageal reflux disease without esophagitis[ICD10: K21.9] Diagnosis: Essential (primary) hypertension[ICD10: I10] Karmen Ash MD, [facility] CPT-4: 83167 01/21/2017 ([id number]) 99300 EST. P ATIENT, LEVEL IV Diagnosis: Type 2 diabetes mellitus with hyperglycemia[ICD10: E11.65] Diagnosis: Vitamin D deficiency, unspecified[ICD10: E55.9] Diagnosis: Essential (primary) hypertension[ICD10: I10] Diagnosis: Chronic obstructive pulmonary disease, unspecified[ICD10: J44.9] Karmen Ash MD, [facility] CPT-4: 40932 12/20/2016 ([id number]) 60249 EST. P ATIENT, LEVEL IV Diagnosis: Type 2 diabetes mellitus with hyperglycemia[ICD10: E11.65] Diagnosis: Essential (primary) hypertension[ICD10: I10] Diagnosis: Mixed hyperlipidemia[ICD10: E78.2] Diagnosis: Vitamin D deficiency, unspecified[ICD10: E55.9] Karmen Ash MD, [facility] CPT-4: 81852 08/23/2016 ([id number]) 60599 EST. P ATIENT, LEVEL IV Diagnosis: Type 2 diabetes mellitus with hyperglycemia[ICD10: E11.65] Diagnosis: Essential (primary) hypertension[ICD10: I10] Diagnosis: Chronic obstructive pulmonary disease, unspecified[ICD10: J44.9] Karmen Ash MD, [facility] CPT-4: 69372 05/22/2016 ([id number]) 36068 EST. P ATIENT, LEVEL III Diagnosis: Dysuria[ICD10: R30.0] Diagnosis: Essential (primary) hypertension[ICD10: I10] Karmen Ash MD, [facility] CPT-4: 33499 02/24/2016 ([id number]) 75469 EST. P ATIENT, LEVEL IV Diagnosis: Gastro-esophageal reflux disease without esophagitis[ICD10: K21.9] Diagnosis: Slow transit constipation[ICD10: K59.01] Diagnosis: Type 2 diabetes mellitus with hyperglycemia[ICD10: E11.65] Karmen Ash MD, [facility] CPT-4: 07522 01/27/2016 ([id number]) 17403 EST. P ATIENT, LEVEL IV Diagnosis: Essential (primary) hypertension[ICD10: I10] Diagnosis: Type 2 diabetes mellitus with hyperglycemia[ICD10: E11.65] Diagnosis: Vitamin D deficiency, unspecified[ICD10: E55.9] Diagnosis: Chronic obstructive pulmonary disease, unspecified[ICD10: J44.9] Diagnosis: Mixed hyperlipidemia[ICD10: E78.2] Diagnosis: Tobacco use[ICD10: Z72.0] Karmen Ash MD, [facility] CPT- 4: 67315 11/25/2015 ([id number]) 46182 EST. P ATIENT, LEVEL IV Diagnosis: Type 2 diabetes mellitus with hyperglycemia[ICD10: E11.65] Diagnosis: Essential (primary) hypertension[ICD10: I10] Diagnosis: Vitamin D deficiency, unspecified[ICD10: E55.9] Karmen Ash MD, [facility] CPT-4: 78230 07/28/2015 ([id number]) 35654 EST. P ATIENT, LEVEL III Diagnosis: Type 2 diabetes mellitus with hyperglycemia[ICD10: E11.65] Diagnosis: Essential (primary) hypertension[ICD10: I10] Violeta Ash MD, [facility] CPT-4: 56033 05/26/2015 ([id number]) 61515 EST. P ATIENT, LEVEL III Diagnosis: DIABETES TYPE II[ICD9: 250.00] Diagnosis: COPD (chronic obstructive pulmonary disease)[ICD9: 496] Diagnosis: ESSENTIAL HYPERTENSION[ICD9: 401.9] Diagnosis: Cough[ICD9: 786.2] Violeta Ash MD, [facility] CPT-4: 34443 05/06/2015 ([id number]) 92348 EST. P ATIENT, LEVEL III Diagnosis: COPD (chronic obstructive pulmonary disease)[ICD9: 496] Diagnosis: DIABETES TYPE II[ICD9: 250.00] Diagnosis: Muscle ache[ICD9: 729.1] Karmen Ash MD, [facility] CPT- 4: 88597 04/25/2015 ([id number]) 88589 EST. P ATIENT, LEVEL III Diagnosis: ACTINIC KERATOSIS[ICD9: 702.0] Diagnosis: COPD (chronic obstructive pulmonary disease)[ICD9: 496] Diagnosis: DIABETES TYPE II[ICD9: 250.00] Diagnosis: ACUTE URI[ICD9: 465.9] Violeta Ash MD, [facility] CPT-4: 33169 04/12/2015 ([id number]) 63117 EST. P ATIENT, LEVEL III Diagnosis: DIABETES TYPE II[ICD9: 250.00] Violeta Ash MD, [facility] CPT-4: 51655 03/24/2015 ([id number]) 07243 EST. P ATIENT, LEVEL IV Diagnosis: DIABETES TYPE II[ICD9: 250.00] Diagnosis: Hypoglycemia[ICD9: 251.2] Diagnosis: Skin texture changes[ICD9: 782.8] Violeta Ash MD, [facility] CPT-4: 49323 03/07/2015 ([id number]) 82459 EST. P ATIENT, LEVEL IV Diagnosis: COPD (chronic obstructive pulmonary disease)[ICD9: 496] Diagnosis: Fatigue[ICD9: 780.79] Diagnosis: Insulin dependent diabetes mellitus[ICD9: 250.00] Diagnosis: Unsteady gait[ICD9: 781.2] Maame Ash MD, [facility] CPT-4: 03020 02/17/2015 ([id number]) 84492 EST. [facility]: BPPV (benign paroxysmal positional vertigo)[ICD9: 386.11] Diagnosis: Impacted cerumen[ICD9: 380.4] Diagnosis: ESSENTIAL HYPERTENSION[ICD9: 401.9] Diagnosis: Insulin dependent diabetes mellitus[ICD9: 250.00] Karmen Ash MD, [facility] CPT-4: 55058 12/23/2014 ([id number]) OFFICE VISI T, NEW - LEVEL 4 Diagnosis: Insulin dependent diabetes mellitus[ICD9: 250.00] Diagnosis: BPPV (benign paroxysmal positional vertigo)[ICD9: 386.11] Diagnosis: COPD (chronic obstructive pulmonary disease)[ICD9: 496] Diagnosis: Tobacco abuse[ICD9: 305.1] Diagnosis: Osteoarthritis[ICD9: 715.90] Karmen Ash MD, [facility] CPT- 4: 69646 12/09/2014 Plan of Care Planned Activity Notes [...] in pain. 06/06/2018 Appointment: Karmen Espinal WPtel: [address] [place], [place] [phone] (15 min) Moderate 06/06/2018 Patient Education: Patient [...] months 04/04/2018 Appointment: Karmen Espinal WPtel: [address] [facility] [place] [phone] (15 min) Moderate 04/04/2018 Patient Education: Patient Medication Summary Completed 04/04/2018 Care Plan: Cbc With Differential Pending 04/04/2018 Care Plan: Testosterone repeat in 2 months Pending 04/04/2018 Appointment: Karmen Espinal WPtel: [address] [phone] [place] (15 min) Moderate 03/25/2018 Visit Plan: Low back pain -history of kidney stone-UA negative today -increase fluids and call if pain does not resolve or if any worse. 03/07/2018 Appointment: Teddy Karemn WPtel: [address] [facility] [place] [phone] (15 min) Moderate 03/07/2018 Patient Education: Patient [...] 1 month 02/20/2018 Appointment: Karmen Espinal WPtel: 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 01/30/2018 Appointment: Karmen Espinal WPtel: [phone] (15 min) Moderate 01/30/2018 Patient Education: Patient Medication Summary Completed 01/30/2018 Appointment: Karmen Espinal WPtel: [phone] (15 min) Moderate 01/28/2018 Appointment: Injection 01/17/2018 Patient Education: Patient Medication Summary Completed 01/17/2018 Visit Plan: Cellulitis - start oral antibiotics as directed, return to clinic as previously directed, call for acute change in symptoms, worsening redness, warmth, discharge. 01/14/2018 Appointment: Karmen Espinal WPtel: [phone] (10 min) Simple 01/14/2018 Patient [...] less controlled. 01/13/2018 Appointment: Karmen Espinal WPtel: [phone] (15 min) Moderate 01/13/2018 Patient Education: Patient Medication Summary Completed 01/13/2018 Referral: Hugo Villatoro [facility]:[phone] Patient's informed. Referral info ned monroy. [...] change in blood pressure readings at home. Qxufmpeo-afmhxb-moqay to see Dr Villatoro Constipation-start linzess daily 11/19/2017 Appointment: Karmen Espinal WPtel: [address] [phone] (30 min) Complex 11/19/2017 Patient Education: Patient Medication Summary Completed 11/19/2017 Care Plan: Referral Order bloating, nausea SNOMED-CT : [id number] Pending 11/19/2017 Visit Plan: Low back pain- [...] acute changes. 10/02/2017 Appointment: Brunilda Maravilla WPtel: [facility] [place] (15 min) Moderate 10/02/2017 Patient Education: Patient [...] controlled. 07/23/2017 Appointment: Karmen Espinal WPtel: [address] [facility] [phone] (30 min) Complex 07/23/2017 Patient Education: Patient [...] history 04/25/2017 Appointment: Karmen Espinal WPtel: [address] [facility] [phone] (30 min) Complex 04/25/2017 Patient Education: Patient [...] readings are starting to become less controlled. Glwmnb-jcfhnag-bzfla labs 02/19/2017 Appointment: Karmen Espinal WPtel: [address] [facility] [phone] (30 min) Complex 02/19/2017 Patient Education: Patient [...] Appointment: Karmen Espinal WPtel: [address] [facility] [phone] (30 min) Complex 01/21/2017 Patient Education: Patient Medication Summary Completed 01/21/2017 Patient Education: Smoking and Tobacco Addiction Completed 01/21/2017 Patient Education: Hypertension Completed 01/21/2017 Care Plan: Referral Order SNOMED-CT : [id number] Pending 01/21/2017 Visit Plan: Diabetes Mellitus - [...] changes. 12/20/2016 Appointment: Karmen Espinal WPtel: [address] [phone] (30 min) Complex 12/20/2016 Patient Education: Patient Medication Summary Completed 12/20/2016 Patient Education: Smoking and Tobacco Addiction Completed 12/20/2016 Patient Education: Hypertension Completed 12/20/2016 Appointment: Karmen Epsinal WPtel: [address] [phone] (30 min) Complex 09/06/2016 Visit [...] deficiency-check vitamin d level 08/23/2016 Appointment: Karmen Espinal: [address] [phone] (30 min) Complex 08/23/2016 Patient [...] changes. 05/22/2016 Appointment: Karmen Espinal WPtel: [address] [phone] (30 min) Complex 05/22/2016 Patient Education: Patient Medication Summary Completed 05/22/2016 Patient Education: Smoking and Tobacco Addiction Completed 05/22/2016 Care Plan: Cbc With Differential Ordered 05/22/2016 Care Plan: %Hba1C CELINA C : 27567-5 Ordered 05/22/2016 Care Plan: Tsh Ordered 05/22/2016 [...] with update 02/24/2016 Appointment: Karmen Espinal WPtel: [address] [facility] [place] [phone] (30 min) Complex 02/24/2016 Patient Education: Patient [...] Appointment: Karmen Espinal WPtel: [address] [facility] [phone] (30 min) Complex 01/27/2016 Patient Education: Patient [...] Completed 05/06/2015 Visit Plan: 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 Mpczbqfg-ksvjosfx-SAAF SIMVASTATIN X 2 WEEKS AND CALL WITH [...] Care Plan: COMPLETE CBC AUTOMATED LOINC : 88903-7 Ordered 03/24/2015 Visit Plan: Diabetes Mellitus - [...] for removal. 03/07/2015 Appointment: Violeta Ash WPtel: [facility] [place] (15 min) Moderate 03/07/2015 Patient Education: Patient [...] Care Plan: COMPLETE CBC AUTOMATED LOINC : 93177-3 Ordered 12/23/2014 Visit Plan: BPPV - Benign [...] next appt 12/09/2014 Appointment: Karmen Espinal WPtel: [address] [place], [place] [phone] [place] ([place]) New Patient 12/09/2014 Patient Education: Patient Medication Summary Completed 12/09/2014 Patient Education: .Amazing charts Parox ysmal positional vertigo Completed 12/09/2014 Patient Education: Smoking and Tobacco Addiction Completed 12/09/2014 Referral: Hugo Villatoro HPtel:[phone] Referral Appointment Requested Referral: Luis Donohue Referral Appointment Requested Instructions Comment CHECK UA TORADOL INCREASE PO FLUIDS STRETCHES [...] monitor for acute changes. Refer to Dr Irving marino or evaluation [...] change in blood pressure readings at home. Notjdkpm-iqzrye-jjyzz to see Dr Villatoro Constipation-start linzess daily [...] readings are starting to become less controlled. Pywqax-tpokcvr-dqaxj labs . COPD -recent pneum onia-symptoms have [...] size of the lesion, increase in pain. BRING BLOOD SUGAR LO G TO NEXT [...] at next appt . Low back pain- pt is OK [...] is stable, monitor for acute changes. . Fatigue, Unsteady Gait, Dizziness- Check labs [...] POTENTIAL SIDE EFFECTS AND WORSENING OF SYMPTOMS. Tdnefimq-xrhkxfqd-VMXC SIMVASTATIN X 2 WEEKS AND CALL WITH UPDATE
--- OUTSIDE RECORDS SUMMARY | 2020-03-29 09:41 | XMS REPORT | CCD ---
Author Author Dick Espinal Organization Violeta Ash MD, [facility] Address [address] [place] [address] Phone Care Team Providers Care Product Management Internship Name Role Phone PP Unavailable CCM Unavailable Summary Purpose Interface Exchange Insurance Providers Payer name Policy type / Coverage type Covered libertarian ID Effective Begin Date Effective End Date WPS Medicare Part B Medicare Part B [id number] Unknown Unknown [employer] Medicar e Part B [id number] Unknown Unkn own Family history Father Diagnosis Age At Onset Cancer Unknown Mother Diagnosis Age At Onset Cancer Unknown Social History Social History Element Codes Description Effective Dates Marital status Unknown M arried 12/09/2014 Employment Unknown Retir ed 12/09/[address]: 63226254 Currently smokes tobacco 12/09/2014 Number of years using tobacco Unknown > 50 12/09/2014 Number of cigarettes/day Unknown 30 (Pack and a half) 12/09/[address]: 079762531 Never drinks alcohol 12/09/2014 Allergies, Adverse Reactions, [...] cypiona te 200 mg/mL intramuscular oil RxNorm: 098433 Milliliter(s) IM 06/24/2018 06/24/2018 In active hydrocodone 5 mg-linh taminophen 325 mg tablet RxNorm: 009879 1 Tablet(s) PO Q6-8H as needed 06/23/2018 07/17/2018 Active testosterone cypiona te 200 mg/mL intramuscular oil RxNorm: 499014 Milliliter(s) IM 06/13/2018 06/13/2018 In active testosterone cypiona te 200 mg/mL intramuscular oil RxNorm: 249768 Milliliter(s) IM 06/05/2018 06/05/2018 In active testosterone cypiona te 200 mg/mL intramuscular oil RxNorm: 624513 1/2 Milliliter(s) IM weekly 05/30/2018 09/26/2018 Active testosterone cypiona te 200 mg/mL intramuscular oil RxNorm: 792643 Milliliter(s) IM 05/30/2018 05/30/2018 In active testosterone cypiona te 200 mg/mL intramuscular oil RxNorm: 736015 Milliliter(s) IM 05/22/2018 05/22/2018 In active hydrocodone 5 mg-linh taminophen 325 mg tablet RxNorm: 014663 1 Tablet(s) PO Q6-8H as needed 05/20/2018 06/13/2018 Inactive testosterone cypiona te 200 mg/mL intramuscular oil RxNorm: 046197 1/2 Milliliter(s) IM 05/12/2018 05/12/2018 Inactive testosterone cypiona te 200 mg/mL intramuscular oil RxNorm: 766692 Milliliter(s) IM 05/02/2018 05/02/2018 In active testosterone cypiona te 200 mg/mL intramuscular oil RxNorm: 437702 1/2 Milliliter(s) IM weekly 04/24/2018 05/29/2018 Inactive testosterone cypiona te 200 mg/mL intramuscular oil RxNorm: 060867 0.5 Milliliter(s) IM 04/24/2018 04/24/2018 Inactive hydrocodone 5 mg-linh taminophen 325 mg tablet RxNorm: 107638 1 Tablet(s) PO Q6-8H as needed 04/22/2018 05/16/2018 Inactive testosterone cypiona te 200 mg/mL intramuscular oil RxNorm: 674907 1/2 Milliliter(s) IM 04/17/2018 04/17/2018 Inactive testosterone cypiona te 200 mg/mL intramuscular oil RxNorm: 700930 1/2 Milliliter(s) IM weekly 04/16/2018 04/23/2018 Inactive Jardiance 10 mg tablet RxNorm: 2245628 1 Tablet(s) PO daily 04/04/2018 12/29/2018 Active Protonix 40 mg table t,delayed release RxNorm: 508829 1 Tablet(s) PO daily TAKE 1 TABLET BY MOUTH DAILY 04/04/2018 03/29/2019 Active - Ref: [id number] testosterone cypiona te 200 mg/mL intramuscular oil RxNorm: 646437 1 Milliliter(s) IM monthly 04/04/2018 04/15/2018 Inactive hydrocodone 5 mg-linh taminophen 325 mg tablet RxNorm: 934524 1 Tablet(s) PO Q6-8H as needed 03/19/2018 04/12/2018 Inactive Flomax 0.4 mg capsule RxNorm: 471091 1 Capsule(s) PO daily 03/10/2018 03/04/2019 Active Urecholine 25 mg tablet RxNorm: 648657 1 Tablet(s) PO BID 03/10/2018 07/07/2018 Active ketorolac 60 mg/2 mL intramuscular solution RxNorm: 3687042 Milliliter(s) IM 03/07/2018 03/07/2018 In active metformin 500 mg tablet RxNorm: 870493 Tablet(s) TAKE 1 TABLET BY MOUTH DAILY 02/20/2018 02/14/2019 Ac tive 1 q am and 1/2 tab q pm hydrocodone 5 mg-linh taminophen 325 mg tablet RxNorm: 656963 1 Tablet(s) PO Q6-8H as needed 02/20/2018 03/16/2018 Inactive Kenalog 40 mg/mL bartolome pension for injection RxNorm: 2238467 1.5 Milliliter(s) In j 01/30/2018 01/30/2018 In active hydrocodone 5 mg-linh taminophen 325 mg tablet RxNorm: 447305 1 Tablet(s) PO Q6-8H as needed 01/23/2018 02/16/2018 Inactive Urecholine 25 mg tablet RxNorm: 651722 1 Tablet(s) PO BID 01/22/2018 03/09/2018 Inactive Flomax 0.4 mg capsule RxNorm: 367616 1 Capsule(s) PO daily 01/22/2018 03/09/2018 Inactive Flomax 0.4 mg capsule RxNorm: 415458 1 Capsule(s) PO daily 01/22/2018 01/21/2018 Inactive Urecholine 25 mg tablet RxNorm: 872010 1 Tablet(s) PO BID 01/22/2018 01/21/2018 Inactive testosterone cypiona te 200 mg/mL intramuscular oil RxNorm: 079079 Milliliter(s) IM 01/17/2018 01/17/2018 In active testosterone cypiona te 200 mg/mL intramuscular oil RxNorm: 829934 1 Milliliter(s) IM monthly 01/17/2018 04/03/2018 Inactive lisinopril 10 mg tablet RxNorm: 047313 TAKE 1 TABLET BY MOUTH TWO TIMES DAILY 01/14/2018 01/08/2019 tive - First Attempt Ref: [id number] doxycycline hyclate 100 mg tablet RxNorm: 337210 1 Tablet(s) PO BID 01/14/2018 01/23/2018 Inactive Xanax 0.5 mg tablet RxNorm: 149209 1 Tablet(s) PO TID 01/08/2018 04/07/2018 Inactive nystatin 100,000 uni t/mL oral suspension RxNorm: 959683 4 Milliliter(s) PO QI D Swish and swallow 01/08/2018 01/07/2018 Inactive nystatin 100,000 uni t/mL oral suspension RxNorm: 770240 4 Milliliter(s) PO QI D Swish and swallow 01/08/2018 01/12/2018 Inactive simvastatin 40 mg ta blet RxNorm: 947625 TAKE 1 TABLET BY MOUT H DAILY AT BEDTIME 12/30/2017 12/24/2018 tive - First Attempt Ref: [id number] metformin 500 mg tablet RxNorm: 532204 TAKE 1 TABLET BY MOUTH DAILY 12/30/2017 02/19/2018 Inactive - First Attempt Ref: [id number] hydrocodone 5 mg-linh taminophen 325 mg tablet RxNorm: 504067 1 Tablet(s) PO Q6-8H as needed 12/25/2017 01/18/2018 Inactive Protonix 40 mg table t,delayed release RxNorm: 768514 Tablet(s) TAKE 1 TABL ET BY MOUTH DAILY 11/20/2017 04/03/2018 Inactive - Ref: [id number] Linzess 72 mcg capsule RxNorm: 7121149 1 Capsule(s) PO daily 11/19/2017 No Stop Date Active hydrocodone 5 mg-linh taminophen 325 mg tablet RxNorm: 152834 1 Tablet(s) PO Q6-8H as needed 11/19/2017 12/13/2017 Inactive hydrocodone 5 mg-linh taminophen 325 mg tablet RxNorm: 215417 1 Tablet(s) PO Q6-8H as needed 10/28/2017 11/18/2017 Inactive Xanax 0.5 mg tablet RxNorm: 593737 1 Tablet(s) PO TID 10/25/2017 12/22/2017 Inactive Xanax 0.5 mg tablet RxNorm: 842191 TAKE ONE TABLET BY MOUTH THREE TIMES A D AY 10/24/2017 12/22/2017 In active hydrocodone 5 mg-linh taminophen 325 mg tablet RxNorm: 876315 1 Tablet(s) PO Q6-8H as needed 09/30/2017 10/24/2017 Inactive Protonix 40 mg table t,delayed release RxNorm: 211786 TAKE 1 TABLET BY MOUT H DAILY 09/16/2017 11/19/2017 In active - Ref: [id number] Toujeo SoloStar 300 unit/mL (1.5 mL) subcutaneous insulin pen RxNorm: 4063039 35 Unit(s) SQ QHS 08/30/2017 No Stop Date Active dosage increase hydrocodone 5 mg-linh taminophen 325 mg tablet RxNorm: 650553 1 Tablet(s) PO Q6-8H as needed 08/28/2017 09/29/2017 Inactive hydrocodone 5 mg-linh taminophen 325 mg tablet RxNorm: 800591 1 Tablet(s) PO Q6-8H as needed 07/23/2017 08/24/2017 Inactive lisinopril 10 mg tablet RxNorm: 771300 1 Tablet(s) PO BID Take 1 tablet by mout h daily 07/23/2017 01/13/2018 Inactive hydrocodone 5 mg-linh taminophen 325 mg tablet RxNorm: 850493 1 Tablet(s) PO Q6-8H as needed 06/27/2017 07/22/2017 Inactive Xanax 0.5 mg tablet RxNorm: 370097 1 Tablet(s) PO TID 06/18/2017 10/25/2017 Inactive hydrocodone 5 mg-linh taminophen 325 mg tablet RxNorm: 133345 1 Tablet(s) PO Q6-8H as needed 05/27/2017 06/26/2017 Inactive Levaquin 500 mg tablet RxNorm: 969591 1 Tablet(s) PO daily 05/24/2017 05/23/2017 Inactive Levaquin 500 mg tablet RxNorm: 770783 1 Tablet(s) PO daily 05/24/2017 05/30/2017 Inactive Protonix 40 mg table t,delayed release RxNorm: 009534 Take 1 tablet by mout h daily 04/29/2017 09/15/2017 In active - Ref: [id number] hydrocodone 5 mg-linh taminophen 325 mg tablet RxNorm: 523245 1 Tablet(s) PO Q6-8H as needed 04/25/2017 05/26/2017 Inactive metformin 500 mg tablet RxNorm: 607783 Take 1 tablet by mouth daily 04/08/2017 12/29/2017 Inactive - First Attempt Ref: [id number] hydrocodone 5 mg-linh taminophen 325 mg tablet RxNorm: 154987 1 Tablet(s) PO Q6-8H as needed 03/27/2017 04/24/2017 Inactive hydrocodone 5 mg-linh taminophen 325 mg tablet RxNorm: 375135 1 Tablet(s) PO Q6-8H as needed 02/25/2017 03/26/2017 Inactive Protonix 40 mg table t,delayed release RxNorm: 344464 Tablet(s) Take 1 tabl et by mouth BID 02/25/2017 04/28/2017 Inactive Protonix 40 mg table t,delayed release RxNorm: 267613 Tablet(s) Take 1 tabl et by mouth BID 02/19/2017 02/18/2017 Inactive Protonix 40 mg table t,delayed release RxNorm: 862711 Tablet(s) Take 1 tabl et by mouth BID 02/19/2017 02/24/2017 Inactive lisinopril 10 mg tablet RxNorm: 191782 Take 1 tablet by mouth daily 01/29/2017 07/22/2017 Inactive - First Attempt Ref: [id number] hydrocodone 5 mg-linh taminophen 325 mg tablet RxNorm: 158206 1 Tablet(s) PO Q6-8H as needed 01/25/2017 02/24/2017 Inactive simvastatin 40 mg ta blet RxNorm: 752778 Tablet(s) Take 1 tabl et by mouth daily at bedtime 01/03/2017 12/28/2017 Inactive lisinopril 10 mg tablet RxNorm: 913973 Tablet(s) Take 1 tablet by mouth daily 01/03/2017 01/28/2017 In active Protonix 40 mg table t,delayed release RxNorm: 851796 Tablet(s) Take 1 tabl et by mouth daily 12/28/2016 02/18/2017 Inactive hydrocodone 5 mg-linh taminophen 325 mg tablet RxNorm: 458945 1 Tablet(s) PO Q6-8H as needed 12/26/2016 01/24/2017 Inactive Xanax 0.5 mg tablet RxNorm: 822612 1 Tablet(s) PO TID 12/12/2016 03/11/2017 Inactive simvastatin 40 mg ta blet RxNorm: 040804 Tablet(s) Take 1 tabl et by mouth daily at bedtime 11/30/2016 01/02/2017 Inactive simvastatin 40 mg ta blet RxNorm: 772863 Take 1 tablet by mout h daily at bedtime 11/29/2016 11/29/2016 In active - First Attempt Ref: [id number] Protonix 40 mg table t,delayed release RxNorm: 682845 Take 1 tablet by mout h daily 11/27/2016 12/27/2016 In active - First Attempt Ref: [id number] hydrocodone 5 mg-linh taminophen 325 mg tablet RxNorm: 055114 1 Tablet(s) PO Q6-8H as needed 11/26/2016 12/25/2016 Inactive hydrocodone 5 mg-linh taminophen 325 mg tablet RxNorm: 145639 1 Tablet(s) PO Q8 as needed 10/24/2016 11/25/2016 Inactive Xanax 0.5 mg tablet RxNorm: 413801 1 Tablet(s) PO TID 10/09/2016 12/25/2016 Inactive hydrocodone 5 mg-linh taminophen 325 mg tablet RxNorm: 163784 1 Tablet(s) PO Q8 as needed 09/27/2016 10/23/2016 Inactive lisinopril 10 mg tablet RxNorm: 893632 Take 1 tablet by mouth daily 09/25/2016 01/02/2017 Inactive - First Attempt Ref: [id number] Vitamin D2 50,000 un it capsule RxNorm: 197555 1 Capsule(s) PO QW 09/06/2016 No Stop Date Active hydrocodone 5 mg-linh taminophen 325 mg tablet RxNorm: 468264 1 Tablet(s) PO Q8 as needed 08/28/2016 09/26/2016 Inactive Toujeo SoloStar 300 unit/mL (1.5 mL) subcutaneous insulin pen RxNorm: 9791963 25 Unit(s) SQ QHS 08/23/2016 08/29/2017 Inactive dosage increase hydrocodone 5 mg-linh taminophen 325 mg tablet RxNorm: 288493 1 Tablet(s) PO Q8 as needed 07/26/2016 08/27/2016 Inactive Protonix 40 mg table t,delayed release RxNorm: 977441 Take 1 tablet by mout h daily 07/24/2016 11/26/2016 In active - First Attempt Ref: [id number] hydrocodone 5 mg-linh taminophen 325 mg tablet RxNorm: 380749 1 Tablet(s) PO Q8 as needed 06/19/2016 07/21/2016 Inactive Toujeo SoloStar 300 unit/mL (1.5 mL) subcutaneous insulin pen RxNorm: 8618964 32 Unit(s) SQ QHS 05/30/2016 08/22/2016 Inactive dosage increase hydrocodone 5 mg-linh taminophen 325 mg tablet RxNorm: 515748 1 Tablet(s) PO Q8 as needed 05/22/2016 06/18/2016 Inactive hydrocodone 5 mg-linh taminophen 325 mg tablet RxNorm: 170352 1 Tablet(s) PO Q8 as needed 04/18/2016 05/17/2016 Inactive Protonix 40 mg table t,delayed release RxNorm: 485524 Take 1 tablet by mout h daily 04/05/2016 07/03/2016 In active - Ref: [id number] metformin 500 mg tablet RxNorm: 940185 Take 1 tablet by mouth daily 04/04/2016 07/02/2016 Inactive - Ref: [id number] Xanax 0.5 mg tablet RxNorm: 780111 1 Tablet(s) PO TID 03/30/2016 09/25/2016 Inactive Xanax 0.5 mg tablet RxNorm: 492014 1 Tablet(s) PO TID 03/23/2016 12/25/2016 Inactive hydrocodone 5 mg-linh taminophen 325 mg tablet RxNorm: 556643 1 Tablet(s) PO Q8 as needed 03/06/2016 04/04/2016 Inactive Cipro 500 mg tablet RxNorm: 307566 1 Tablet(s) PO BID 02/24/2016 03/04/2016 Inactive Miralax 17 gram oral powder packet RxNorm: 940149 1 packet PO every oth er day 01/27/2016 No Stop Date Active hydrocodone 5 mg-linh taminophen 325 mg tablet RxNorm: 317940 1 Tablet(s) PO Q8 as needed 01/27/2016 02/25/2016 Inactive lisinopril 10 mg tablet RxNorm: 320850 1 Tablet(s) PO daily 01/12/2016 09/24/2016 Inactive simvastatin 40 mg ta blet RxNorm: 464290 1 Tablet(s) PO QHS 01/12/2016 11/28/2016 Inactive simvastatin 40 mg ta blet RxNorm: 787143 1 Tablet(s) PO QHS 01/11/2016 01/11/2016 Inactive lisinopril 10 mg tablet RxNorm: 670264 1 Tablet(s) PO daily 01/06/2016 01/11/2016 Inactive simvastatin 40 mg ta blet RxNorm: 698400 1 Tablet(s) PO daily 12/28/2015 01/10/2016 Inactive hydrocodone 5 mg-linh taminophen 325 mg tablet RxNorm: 196568 1 Tablet(s) PO Q8 as needed 12/27/2015 01/26/2016 Inactive Xanax 0.5 mg tablet RxNorm: 034867 1 Tablet(s) PO TID 11/30/2015 03/29/2016 Inactive meclizine 25 mg tablet RxNorm: 452245 1 Tablet(s) PO Q6 PRN TAKE ONE TABLET BY MOUTH EVERY 6 HOURS NEEDED 11/25/2015 02/22/2016 Inactive Toujeo SoloStar 300 unit/mL (1.5 mL) subcutaneous insulin pen RxNorm: 8277425 30 Unit(s) SQ QHS 11/25/2015 05/29/2016 Inactive dosage increase omeprazole 20 mg cap jacquelyn,delayed release RxNorm: 384491 1 Capsule(s) PO daily 10/06/2015 01/26/2016 In active Toujeo SoloStar 300 unit/mL (1.5 mL) subcutaneous insulin pen RxNorm: 8238829 35 Unit(s) SQ QHS 08/02/2015 11/24/2015 Inactive dosage increase Vitamin D2 50,000 un it capsule RxNorm: 366297 1 Capsule(s) PO QW 08/02/2015 09/05/2016 Inactive hydrocodone 5 mg-linh taminophen 325 mg tablet RxNorm: 611818 1 Tablet(s) PO Q8 as needed 07/11/2015 12/26/2015 Inactive Xanax 0.5 mg tablet RxNorm: 438510 1 Tablet(s) PO TID 06/30/2015 06/29/2015 Inactive Xanax 0.5 mg tablet RxNorm: 395758 1 Tablet(s) PO TID 06/30/2015 12/25/2015 Inactive hydrocodone 5 mg-linh taminophen 325 mg tablet RxNorm: 330506 1 Tablet(s) PO Q8 as needed 05/06/2015 07/10/2015 Inactive Symbicort 160 mcg-4. 5 mcg/actuation HFA aerosol inhaler RxNorm: 7735939 INH 04/25/2015 No Stop Date Active Levemir FlexTouch 10 0 unit/mL (3 mL) subcutaneous insulin pen RxNorm: 218165 30 Unit(s) SQ QHS 04/25/2015 11/24/2015 Inactive prednisone 20 mg tablet RxNorm: 604642 1 Tablet(s) PO BID 04/25/2015 04/29/2015 Inactive metformin 500 mg tablet RxNorm: 012345 1 Tablet(s) PO daily 04/25/2015 04/03/2016 Inactive amoxicillin 500 mg c apsule RxNorm: 155934 1 Capsule(s) PO TID 04/14/2015 04/13/2015 Inactive amoxicillin 500 mg c apsule RxNorm: 531175 1 Capsule(s) PO TID a nd recommend probiotic tid (otc) 04/14/2015 04/20/2015 Inactive Kenalog 40 mg/mL bartolome pension for injection RxNorm: 3297500 Milliliter(s) Inj 04/12/2015 04/12/2015 In active hydrocodone 5 mg-linh taminophen 325 mg tablet RxNorm: 400554 1 Tablet(s) PO Q8 as needed 03/30/2015 05/05/2015 Inactive Lantus 100 unit/mL s ubcutaneous solution RxNorm: 671499 25 Unit(s) SQ QPM 03/24/2015 04/25/2015 In active meclizine 25 mg tablet RxNorm: 311579 Tablet(s) TAKE ONE TABLET BY MOUTH EVERY 6 HOURS NEEDED 03/08/2015 04/06/2015 Inactive meclizine 25 mg tablet RxNorm: 574984 TAKE ONE TABLET BY MOUTH EVERY 6 HOURS A S NEEDED 02/25/2015 03/03/2015 Inactive Lantus 100 unit/mL s ubcutaneous solution RxNorm: 631923 20 Unit(s) SQ QPM 02/23/2015 03/23/2015 In active Lantus 100 unit/mL s ubcutaneous solution RxNorm: 691398 25 Unit(s) SQ QPM 02/23/2015 02/22/2015 In active hydrocodone 5 mg-linh taminophen 325 mg tablet RxNorm: 195044 1 Tablet(s) PO Q8 as needed 02/17/2015 03/29/2015 Inactive Xanax 0.5 mg tablet RxNorm: 441122 1 Tablet(s) PO TID 02/03/2015 06/29/2015 Inactive Lantus 100 unit/mL s ubcutaneous solution RxNorm: 519639 20 Unit(s) SQ QPM 12/29/2014 02/22/2015 In active Phenergan 12.5 mg re ctal suppository RxNorm: 672287 1 Suppository RTL Q6 PRN 12/23/2014 No Stop Date Active nausea Kenalog 40 mg/mL bartolome pension for injection RxNorm: 4204812 Milliliter(s) Inj 12/23/2014 12/23/2014 In active prednisone 20 mg tablet RxNorm: 672216 2 Tablet(s) PO daily 12/13/2014 12/17/2014 Inactive prednisone 20 mg tablet RxNorm: 883571 2 Tablet(s) PO daily 12/13/2014 12/12/2014 Inactive meclizine 25 mg tablet RxNorm: 201771 1 Tablet(s) PO Q6 PRN 12/09/2014 02/24/2015 Inactive hydrocodone 5 mg-linh taminophen 325 mg tablet RxNorm: 701035 1 Tablet(s) PO Q8 as needed 12/09/2014 02/16/2015 Inactive Vitamin B-12 1,000 m cg/mL oral drops RxNorm: 4482938 1 Milliliter(s) PO d aily No Start Date Active Alphagan P 0.1 % eye drops RxNorm: 776888 1 Drop(s) OPH BID No Start Date Active aspirin 325 mg table t,delayed release RxNorm: 805381 1 Tablet(s) PO daily No Start Date Active Tricor 145 mg tablet RxNorm: 092446 1 Tablet(s) PO daily No Start Date Active vitamin P46-lmbwcth B1 oral liquid RxNorm: 1,000 Microgram(s) PO daily No Start Date Active atenolol 50 mg tablet RxNorm: 703674 1 Tablet(s) PO daily No Start Date Active Protonix 40 mg table t,delayed release RxNorm: 576403 1 Tablet(s) PO daily No Start Date 04/04/2016 Inactive glipizide 10 mg tablet RxNorm: 788048 1 Tablet(s) PO BID No Start Date 03/22/2015 Inactive Lantus 100 unit/mL s ubcutaneous solution RxNorm: 521239 15 Unit(s) SQ QPM No Start Date 12/28/2014 Inactive lisinopril 10 mg tablet RxNorm: 135106 1 Tablet(s) PO daily No Start Date 01/05/2016 Inactive Vitamin D2 50,000 un it capsule RxNorm: 556632 1 Capsule(s) PO QW No Start Date 08/01/2015 Inactive Toujeo SoloStar 300 unit/mL (1.5 mL) subcutaneous insulin pen RxNorm: 5443896 30 Unit(s) SQ QHS No Start Date 08/01/2015 Inactive simvastatin 40 mg ta blet RxNorm: 766935 1 Tablet(s) PO daily No Start Date 12/27/2015 Inactive testosterone cypiona te 200 mg/mL intramuscular oil RxNorm: 294652 1 Milliliter(s) IM monthly No Start Date 01/16/2018 Inactive hydrocodone 5 mg-linh taminophen 325 mg tablet RxNorm: 497543 1 Tablet(s) PO Q8 as needed No Start Date 12/08/2014 Inactive metformin 500 mg tablet RxNorm: 865704 1 Tablet(s) PO daily No Start Date 04/24/2015 Inactive omeprazole 20 mg cap jacquelyn,delayed release RxNorm: 237160 1 Capsule(s) PO daily No Start Date 10/05/2015 Inactive Flomax 0.4 mg capsule RxNorm: 171411 1 Capsule(s) PO daily No Start Date 03/23/2015 Inactive Medication Administered Medication Codes Instruc tions Start Date Status testosterone cypionate 200 mg/mL intramuscular oil RxNorm: 109430 Milliliter 06/24/2018 Active testosterone cypionate 200 mg/mL intramuscular oil RxNorm: 179229 Milliliter 06/13/2018 No longer Active testosterone cypionate 200 mg/mL intramuscular oil RxNorm: 087857 Milliliter 06/05/2018 No longer Active testosterone cypionate 200 mg/mL intramuscular oil RxNorm: 172780 Milliliter 05/30/2018 No longer Active testosterone cypionate 200 mg/mL intramuscular oil RxNorm: 437348 Milliliter 05/22/2018 No longer Active testosterone cypionate 200 mg/mL intramuscular oil RxNorm: 415088 1/2Milliliter 05/12/2018 No longer Active testosterone cypionate 200 mg/mL intramuscular oil RxNorm: 767295 Milliliter 05/02/2018 No longer Active testosterone cypionate 200 mg/mL intramuscular oil RxNorm: 898562 0.5Milliliter 04/24/2018 No longer Active testosterone cypionate 200 mg/mL intramuscular oil RxNorm: 651763 1/2Milliliter 04/17/2018 No longer Active ketorolac 60 mg/2 mL intramuscular solution RxNorm: 4643346 Milliliter 03/07/2018 No longer Active Kenalog 40 mg/mL suspension for injection RxNorm: 5401813 1.5Milliliter 01/30/2018 No longer Active testosterone cypionate 200 mg/mL intramuscular oil RxNorm: 410505 Milliliter 01/17/2018 No longer Active Kenalog 40 mg/mL suspension for injection RxNorm: 9057937 Milliliter 04/12/2015 No longer Active Kenalog 40 mg/mL suspension for injection RxNorm: 1227159 Milliliter 12/23/2014 No longer Active Immunizations Vaccine [...] Item Item Code Result Date Comp Metabolic Gwj026 NA 139 mEq/L 04/01/2018 Comp Metabolic Gnj292 K 4.2 mEq/L 04/01/2018 Comp Metabolic Swg751 CL 102 mEq/L 04/01/2018 Comp Metabolic Ccx217 CO2 29.0 mEq/L 04/01/2018 Comp Metabolic Zvf598 AN ION GAP 12 04/01/2018 Comp Metabolic Pmd368 GL UCOSE 87 mg/dL 04/01/2018 Comp Metabolic Log942 Cr eat 1.1 mg/dL 04/01/2018 Comp Metabolic Bgx449 eG FR 70 ml/min/1.73m2 04/01 Comp Metabolic Bui976 BUN 21 mg/dL 04/01/2018 Comp Metabolic Eze994 B/ C Ratio 19.4 Ratio 04/01/2018 Comp Metabolic Bka083 CA LCIUM 9.1 mg/dL 04/01/2018 Comp Metabolic Fbx452 AL K PHOS 60 U/L 04/01/2018 Comp Metabolic Fyd572 T(SGOT) 15 U/L 04/01/2018 Comp Metabolic Htb848 AL T(SGPT) 18 U/L 04/01/2018 Comp Metabolic Raq017 BI LI T 0.4 mg/dL 04/01/2018 Comp Metabolic Aky500 AL BUMIN 4.0 g/dL 04/01/2018 Comp Metabolic Njh009 TP RO 6.5 g/dL 04/01/2018 Comp Metabolic Jih709 GL OB 2.5 g/dL 04/01/2018 Comp Metabolic Gfm396 A/ G Ratio 1.6 Ratio 04/01/2018 Comp Metabolic Mon987 Os mo 280 mOsmo 04/01/2018 Lipid Ord30 [...] 34.3 pg 04/01/2018 Cbc With Differential Ord2 [place]% 6.0 % 04/01/2018 Cbc With Differential Ord2 [...] 3.25 K/ul 04/01/2018 Cbc With Differential Ord2 [place] ABS# 0.6 K/ul 04/01/2018 Cbc With Differential Ord2 Eos ABS# 0.4 K/ul 04/01/2018 Cbc With Differential Ord2 Baso ABS# 0.0 K/ul 04/01/2018 %Hba1C Xdl504 % HbA1c 61812-9 8.0 % 04/01/2018 %Hba1C Poj466 Gluc Ave 183 mg/dL 04/01/2018 Testosterone Kmo833 Testo 111.3 ng/dL 04/01/2018 Testosterone Sli494 Testo 135.4 ng/dL 01/14/2018 Cbc With Differential [...] 36.0 pg 01/14/2018 Cbc With Differential Ord2 [place]% 6.8 % 01/14/2018 Cbc With Differential Ord2 [...] 2.71 K/ul 01/14/2018 Cbc With Differential Ord2 [place] ABS# 0.8 K/ul 01/14/2018 Cbc With Differential Ord2 Eos ABS# 0.2 K/ul 01/14/2018 Cbc With Differential Ord2 Baso ABS# 0.0 K/ul 01/14/2018 Comp Metabolic Ued650 NA 134 mEq/L 11/20/2017 Comp Metabolic Gyn291 K 4.4 mEq/L 11/20/2017 Comp Metabolic Vce169 CL 99 mEq/L 11/20/2017 Comp Metabolic Zqc537 CO2 29.0 mEq/L 11/20/2017 Comp Metabolic Buk703 AN ION GAP 10 11/20/2017 Comp Metabolic Chw287 GL UCOSE 218 mg/dL 11/20/2017 Comp Metabolic Oed737 Cr eat 1.0 mg/dL 11/20/2017 Comp Metabolic Mwm352 eG FR 78 ml/min/1.73m2 11/20 Comp Metabolic Jvw423 BUN 13 mg/dL 11/20/2017 Comp Metabolic Qsz569 B/ C Ratio 13.3 Ratio 11/20/2017 Comp Metabolic Nzx660 CA LCIUM 9.0 mg/dL 11/20/2017 Comp Metabolic Wpx762 AL K PHOS 71 U/L 11/20/2017 Comp Metabolic Vev641 T(SGOT) 18 U/L 11/20/2017 Comp Metabolic Jxx091 AL T(SGPT) 17 U/L 11/20/2017 Comp Metabolic Ryb536 BI LI T 0.4 mg/dL 11/20/2017 Comp Metabolic Iry711 AL BUMIN 4.1 g/dL 11/20/2017 Comp Metabolic Bxy298 TP RO 6.5 g/dL 11/20/2017 Comp Metabolic Ant808 GL OB 2.4 g/dL 11/20/2017 Comp Metabolic Sbi571 A/ G Ratio 1.8 Ratio 11/20/2017 Comp Metabolic Isu494 Os mo 275 mOsmo 11/20/2017 Cbc With [...] 35.2 pg 11/20/2017 Cbc With Differential Ord2 [place]% 7.2 % 11/20/2017 Cbc With Differential Ord2 [...] 3.34 K/ul 11/20/2017 Cbc With Differential Ord2 [place] ABS# 0.6 K/ul 11/20/2017 Cbc With Differential Ord2 Eos ABS# 0.3 K/ul 11/20/2017 Cbc With Differential Ord2 Baso ABS# 0.0 K/ul 11/20/2017 Vitamin D 25 Oh Ior3406 VITAMIN D, 25 HYDROXY 43.72 ng/mL 11/20/2017 %Hba1C Qpr784 % HbA1c 09432-8 7.4 % 11/20/2017 %Hba1C Hqb339 Gluc Ave 166 mg/dL 11/20/2017 %Hba1C Hqy317 % HbA1c 31510-5 7.2 % 08/20/2017 %Hba1C Cvf053 Gluc Ave 160 mg/dL 08/20/2017 Lipid Ord30 [...] 34.7 pg 08/20/2017 Cbc With Differential Ord2 [place]% 7.6 % 08/20/2017 Cbc With Differential Ord2 [...] 2.42 K/ul 08/20/2017 Cbc With Differential Ord2 [place] ABS# 0.6 K/ul 08/20/2017 Cbc With Differential Ord2 Eos ABS# 0.3 K/ul 08/20/2017 Cbc With Differential Ord2 Baso ABS# 0.0 K/ul 08/20/2017 Tsh Ord6 hTSH II 2.27 uIU/mL 08/20/2017 Comp Metabolic Ufq227 NA 138 mEq/L 08/20/2017 Comp Metabolic Pvh567 K 4.3 mEq/L 08/20/2017 Comp Metabolic Phw205 CL 102 mEq/L 08/20/2017 Comp Metabolic Uct467 CO2 29.0 mEq/L 08/20/2017 Comp Metabolic Ufy837 AN ION GAP 11 08/20/2017 Comp Metabolic Jbk878 GL UCOSE 89 mg/dL 08/20/2017 Comp Metabolic Kqi450 Cr eat 1.0 mg/dL 08/20/2017 Comp Metabolic Utm248 eG FR 80 ml/min/1.73m2 08/20 Comp Metabolic Kkj725 BUN 13 mg/dL 08/20/2017 Comp Metabolic Yoo647 B/ C Ratio 13.5 Ratio 08/20/2017 Comp Metabolic Xos303 CA LCIUM 9.2 mg/dL 08/20/2017 Comp Metabolic Vmz212 AL K PHOS 69 U/L 08/20/2017 Comp Metabolic Ios090 T(SGOT) 18 U/L 08/20/2017 Comp Metabolic Ypv714 AL T(SGPT) 19 U/L 08/20/2017 Comp Metabolic Nyl393 BI LI T 0.6 mg/dL 08/20/2017 Comp Metabolic Ztc428 AL BUMIN 4.0 g/dL 08/20/2017 Comp Metabolic Vuv451 TP RO 6.6 g/dL 08/20/2017 Comp Metabolic Jid238 GL OB 2.6 g/dL 08/20/2017 Comp Metabolic Nph843 A/ G Ratio 1.5 Ratio 08/20/2017 Comp Metabolic Awu290 Os mo 275 mOsmo 08/20/2017 Vitamin D 25 Oh Kmw1585 VITAMIN D, 25 HYDROXY 30.96 ng/mL 08/20/2017 B12 Jtn229 B12 >1500.00 pg/ml 02/22/2017 Cbc With Differential [...] 106.5 fl 02/20/2017 Cbc With Differential Ord2 [place]% 6.3 % 02/20/2017 Cbc With Differential Ord2 [...] 3.19 K/ul 02/20/2017 Cbc With Differential Ord2 [place] ABS# 0.5 K/ul 02/20/2017 Cbc With Differential Ord2 Eos ABS# 0.4 K/ul 02/20/2017 Cbc With Differential Ord2 Baso ABS# 0.0 K/ul 02/20/2017 Comp Metabolic Ocj897 NA 138 mEq/L 02/20/2017 Comp Metabolic Omg526 K 4.5 mEq/L 02/20/2017 Comp Metabolic Hpa414 CL 101 mEq/L 02/20/2017 Comp Metabolic Uqt692 CO2 31.0 mEq/L 02/20/2017 Comp Metabolic Fjj747 AN ION GAP 11 02/20/2017 Comp Metabolic Igo303 GL UCOSE 120 mg/dL 02/20/2017 Comp Metabolic Uoh321 Cr eat 0.9 mg/dL 02/20/2017 Comp Metabolic Der904 eG FR 83 ml/min/1.73m2 02/20 Comp Metabolic Jso948 BUN 15 mg/dL 02/20/2017 Comp Metabolic Tum750 B/ C Ratio 16.1 Ratio 02/20/2017 Comp Metabolic Dis657 CA LCIUM 9.1 mg/dL 02/20/2017 Comp Metabolic Jgr767 AL K PHOS 67 U/L 02/20/2017 Comp Metabolic Rzh617 T(SGOT) 15 U/L 02/20/2017 Comp Metabolic Gnk073 AL T(SGPT) 16 U/L 02/20/2017 Comp Metabolic Ura192 BI LI T 0.5 mg/dL 02/20/2017 Comp Metabolic Ofz123 AL BUMIN 4.0 g/dL 02/20/2017 Comp Metabolic Acv198 TP RO 6.4 g/dL 02/20/2017 Comp Metabolic Iob720 GL OB 2.4 g/dL 02/20/2017 Comp Metabolic Dwc673 A/ G Ratio 1.7 Ratio 02/20/2017 Comp Metabolic Glp231 Os mo 278 mOsmo 02/20/2017 Tsh Ord6 hTSH II 2.05 uIU/mL 02/20/2017 %Hba1C Uck672 % HbA1c 69990-2 7.6 % 02/20/2017 %Hba1C Qgz325 Gluc Ave 171 mg/dL 02/20/2017 Vitamin D 25 Oh Dvr4271 VITAMIN D, 25 HYDROXY 44.40 ng/mL 12/21/2016 Comp Metabolic Sbz292 NA 131 mEq/L 12/21/2016 Comp Metabolic Qei080 K 4.2 mEq/L 12/21/2016 Comp Metabolic Vdc011 CL 97 mEq/L 12/21/2016 Comp Metabolic Meq415 CO2 27.0 mEq/L 12/21/2016 Comp Metabolic Ips518 AN ION GAP 11 12/21/2016 Comp Metabolic Jnk193 GL UCOSE 266 mg/dL 12/21/2016 Comp Metabolic Soa268 Cr eat 0.9 mg/dL 12/21/2016 Comp Metabolic Kvc297 eG FR 88 ml/min/1.73m2 12/21 Comp Metabolic Kiy254 BUN 12 mg/dL 12/21/2016 Comp Metabolic Jum371 B/ C Ratio 13.6 Ratio 12/21/2016 Comp Metabolic Nel956 CA LCIUM 8.6 mg/dL 12/21/2016 Comp Metabolic Cuy813 AL K PHOS 69 U/L 12/21/2016 Comp Metabolic Kxb249 T(SGOT) 15 U/L 12/21/2016 Comp Metabolic Qbm801 AL T(SGPT) 14 U/L 12/21/2016 Comp Metabolic Vgb234 BI LI T 0.3 mg/dL 12/21/2016 Comp Metabolic Jdu556 AL BUMIN 3.7 g/dL 12/21/2016 Comp Metabolic Rff511 TP RO 5.9 g/dL 12/21/2016 Comp Metabolic Qyj580 GL OB 2.2 g/dL 12/21/2016 Comp Metabolic Oqk477 A/ G Ratio 1.7 Ratio 12/21/2016 Comp Metabolic Obg072 Os mo 272 mOsmo 12/21/2016 Cbc With [...] 34.6 pg 12/21/2016 Cbc With Differential Ord2 [place]% 6.9 % 12/21/2016 Cbc With Differential Ord2 [...] 2.05 K/ul 12/21/2016 Cbc With Differential Ord2 [place] ABS# 0.4 K/ul 12/21/2016 Cbc With Differential Ord2 Eos ABS# 0.2 K/ul 12/21/2016 Cbc With Differential Ord2 Baso ABS# 0.0 K/ul 12/21/2016 Comp Metabolic Fis133 NA 138 mEq/L 09/03/2016 Comp Metabolic Kir223 K 4.5 mEq/L 09/03/2016 Comp Metabolic Bdp934 CL 102 mEq/L 09/03/2016 Comp Metabolic Ymn727 CO2 30.0 mEq/L 09/03/2016 Comp Metabolic Kil421 AN ION GAP 11 09/03/2016 Comp Metabolic Qlt347 GL UCOSE 113 mg/dL 09/03/2016 Comp Metabolic Dnv326 Cr eat 1.0 mg/dL 09/03/2016 Comp Metabolic Mpy354 eG FR 81 ml/min/1.73m2 09/03 Comp Metabolic Mdf984 BUN 10 mg/dL 09/03/2016 Comp Metabolic Gug158 B/ C Ratio 10.5 Ratio 09/03/2016 Comp Metabolic Kga990 CA LCIUM 9.1 mg/dL 09/03/2016 Comp Metabolic Yef040 AL K PHOS 71 U/L 09/03/2016 Comp Metabolic Cmq407 T(SGOT) 18 U/L 09/03/2016 Comp Metabolic Ykm565 AL T(SGPT) 17 U/L 09/03/2016 Comp Metabolic Mtl889 BI LI T 0.6 mg/dL 09/03/2016 Comp Metabolic Rad658 AL BUMIN 4.1 g/dL 09/03/2016 Comp Metabolic Ber608 TP RO 6.4 g/dL 09/03/2016 Comp Metabolic Tkn742 GL OB 2.3 g/dL 09/03/2016 Comp Metabolic Cyq004 A/ G Ratio 1.8 Ratio 09/03/2016 Comp Metabolic Smj874 Os mo 276 mOsmo 09/03/2016 Vitamin D 25 Oh Atm9599 VITAMIN D, 25 HYDROXY 28.23 ng/mL 09/03/2016 [...] 34.4 pg 09/03/2016 Cbc With Differential Ord2 [place]% 8.9 % 09/03/2016 Cbc With Differential Ord2 [...] 3.34 K/ul 09/03/2016 Cbc With Differential Ord2 [place] ABS# 0.7 K/ul 09/03/2016 Cbc With Differential Ord2 Eos ABS# 0.4 K/ul 09/03/2016 Cbc With Differential Ord2 Baso ABS# 0.0 K/ul 09/03/2016 Lipid Ord30 CHOL 120 mg/dL 09/03/2016 Lipid Ord30 HDL 33.0 mg/dl 09/03/2016 Lipid Ord30 TRIG 161 mg/dL 09/03/2016 Lipid Ord30 LDL 55 mg/dL 09/03/2016 Lipid Ord30 C/HDL 3.6 Ratio 09/03/2016 %Hba1C Moj607 % HbA1c 79881-6 7.5 % 09/03/2016 %Hba1C Lzz813 Gluc Ave 169 mg/dL 09/03/2016 Tsh Ord6 hTSH II 1.50 uIU/mL 05/23/2016 %Hba1C Vvc194 % HbA1c 21972-1 7.6 % 05/23/2016 %Hba1C Dqj469 Gluc Ave 171 mg/dL 05/23/2016 Comp Metabolic Jfj935 NA 135 mEq/L 05/23/2016 Comp Metabolic Txb777 K 4.4 mEq/L 05/23/2016 Comp Metabolic Fcl278 CL 99 mEq/L 05/23/2016 Comp Metabolic Whc290 CO2 28.0 mEq/L 05/23/2016 Comp Metabolic Ptx563 AN ION GAP 12 05/23/2016 Comp Metabolic Eza611 GL UCOSE 257 mg/dL 05/23/2016 Comp Metabolic Dzr797 Cr eat 0.8 mg/dL 05/23/2016 Comp Metabolic Zyx692 eG FR 95 ml/min/1.73m2 05/23 Comp Metabolic Mcq752 BUN 11 mg/dL 05/23/2016 Comp Metabolic Ffa651 B/ C Ratio 13.3 Ratio 05/23/2016 Comp Metabolic Saa590 CA LCIUM 9.0 mg/dL 05/23/2016 Comp Metabolic Ezy549 AL K PHOS 82 U/L 05/23/2016 Comp Metabolic Zon255 T(SGOT) 21 U/L 05/23/2016 Comp Metabolic Tcf816 AL T(SGPT) 20 U/L 05/23/2016 Comp Metabolic Gzy632 BI LI T 0.3 mg/dL 05/23/2016 Comp Metabolic Jbn722 AL BUMIN 4.0 g/dL 05/23/2016 Comp Metabolic Vfk749 TP RO 6.4 g/dL 05/23/2016 Comp Metabolic Mhr720 GL OB 2.4 g/dL 05/23/2016 Comp Metabolic Ijp154 A/ G Ratio 1.6 Ratio 05/23/2016 Comp Metabolic Obr865 Os mo 278 mOsmo 05/23/2016 Cbc With [...] 34.5 pg 05/23/2016 Cbc With Differential Ord2 [place]% 6.1 % 05/23/2016 Cbc With Differential Ord2 [...] 2.38 K/ul 05/23/2016 Cbc With Differential Ord2 [place] ABS# 0.4 K/ul 05/23/2016 Cbc With Differential Ord2 Eos ABS# 0.2 K/ul 05/23/2016 Cbc With Differential Ord2 Baso ABS# 0.0 K/ul 05/23/2016 B12 Dkp762 B12 597.00 pg/ml 05/23/2016 Metabolic Ord15 NA [...] 0.92 uIU/mL 07/29/2015 Vitamin D 25 Oh Fyh6015 VITAMIN D, 25 HYDROXY 26.93 ng/mL 07/29/2015 %Hba1C Bcr853 % HbA1c 78920-8 8.8 % 07/29/2015 %Hba1C Kuv466 Gluc Ave 206 mg/dL 07/29/2015 Cbc With [...] Ord2 RDW 14.9 % 07/29/2015 Comp Metabolic Vwv480 NA 138 mEq/L 07/29/2015 Comp Metabolic Jdv210 K 4.4 mEq/L 07/29/2015 Comp Metabolic Yhq632 CL 102 mEq/L 07/29/2015 Comp Metabolic Lli565 CO2 28.0 mEq/L 07/29/2015 Comp Metabolic Bti313 AN ION GAP 12 07/29/2015 Comp Metabolic Qnz985 GL UCOSE 261 mg/dL 07/29/2015 Comp Metabolic Hci221 Cr eat 1.0 mg/dL 07/29/2015 Comp Metabolic Xeb433 eG FR 77 ml/min/1.73m2 07/29 Comp Metabolic Ypo148 BUN 13 mg/dL 07/29/2015 Comp Metabolic Exx030 B/ C Ratio 13.0 Ratio 07/29/2015 Comp Metabolic Piz218 CA LCIUM 9.1 mg/dL 07/29/2015 Comp Metabolic Tho469 AL K PHOS 64 U/L 07/29/2015 Comp Metabolic Wxj345 T(SGOT) 20 U/L 07/29/2015 Comp Metabolic Hlq671 AL T(SGPT) 22 U/L 07/29/2015 Comp Metabolic Hxg436 BI LI T 0.4 mg/dL 07/29/2015 Comp Metabolic Dks596 AL BUMIN 4.0 g/dL 07/29/2015 Comp Metabolic Xny130 TP RO 6.1 g/dL 07/29/2015 Comp Metabolic Rme510 GL OB 2.1 g/dL 07/29/2015 Comp Metabolic Trz660 A/ G Ratio 1.9 Ratio 07/29/2015 Comp Metabolic Yxr654 Os mo 285 mOsmo 07/29/2015 Cbc With [...] Ord2 RDW 13.1 % 05/06/2015 Comp Metabolic Ndu321 NA 134 mEq/L 05/06/2015 Comp Metabolic Skg717 K 4.4 mEq/L 05/06/2015 Comp Metabolic Npc803 CL 98 mEq/L 05/06/2015 Comp Metabolic Stj485 CO2 29.0 mEq/L 05/06/2015 Comp Metabolic Lnv177 AN ION GAP 11 05/06/2015 Comp Metabolic Ksd840 GL UCOSE 321 mg/dL 05/06/2015 Comp Metabolic Sqo119 Cr eat 1.0 mg/dL 05/06/2015 Comp Metabolic Jns117 eG FR 78 ml/min/1.73m2 05/06 Comp Metabolic Adc361 BUN 20 mg/dL 05/06/2015 Comp Metabolic Guw150 B/ C Ratio 20.4 Ratio 05/06/2015 Comp Metabolic Cha441 CA LCIUM 9.5 mg/dL 05/06/2015 Comp Metabolic Axf323 AL K PHOS 62 U/L 05/06/2015 Comp Metabolic Nkj640 T(SGOT) 21 U/L 05/06/2015 Comp Metabolic Hzp387 AL T(SGPT) 37 U/L 05/06/2015 Comp Metabolic Gvd792 BI LI T 0.4 mg/dL 05/06/2015 Comp Metabolic Lob664 AL BUMIN 3.8 g/dL 05/06/2015 Comp Metabolic Oaz443 TP RO 6.1 g/dL 05/06/2015 Comp Metabolic Zth100 GL OB 2.3 g/dL 05/06/2015 Comp Metabolic Fli392 A/ G Ratio 1.7 Ratio 05/06/2015 Comp Metabolic Xmo321 Os mo 283 mOsmo 05/06/2015 Tsh Ord6 hTSH II 1.65 uIU/mL 02/18/2015 B12 Qxf518 B12 605.00 pg/ml 02/18/2015 %Hba1C Utd261 % HbA1c 32996-2 8.3 % 02/18/2015 %Hba1C Fpd497 Gluc Ave 192 mg/dL 02/18/2015 Cbc With [...] Ord2 RDW 13.9 % 02/17/2015 Comp Metabolic Xsj619 NA 137 mEq/L 02/17/2015 Comp Metabolic Ard470 K 4.4 mEq/L 02/17/2015 Comp Metabolic Xde540 CL 100 mEq/L 02/17/2015 Comp Metabolic Crq369 CO2 31.0 mEq/L 02/17/2015 Comp Metabolic Ylj545 AN ION GAP 10 02/17/2015 Comp Metabolic Gbv000 GL UCOSE 307 mg/dL 02/17/2015 Comp Metabolic Lms413 Cr eat 1.0 mg/dL 02/17/2015 Comp Metabolic Crt206 eG FR 74 ml/min/1.73m2 02/17 Comp Metabolic Vin721 BUN 22 mg/dL 02/17/2015 Comp Metabolic Fwc426 B/ C Ratio 21.4 Ratio 02/17/2015 Comp Metabolic Zcp140 CA LCIUM 9.5 mg/dL 02/17/2015 Comp Metabolic Yzt670 AL K PHOS 78 U/L 02/17/2015 Comp Metabolic Mtn645 T(SGOT) 18 U/L 02/17/2015 Comp Metabolic Jqz251 AL T(SGPT) 32 U/L 02/17/2015 Comp Metabolic Rav915 BI LI T 0.5 mg/dL 02/17/2015 Comp Metabolic Fea732 AL BUMIN 4.3 g/dL 02/17/2015 Comp Metabolic Abh479 TP RO 6.7 g/dL 02/17/2015 Comp Metabolic Cyw996 GL OB 2.4 g/dL 02/17/2015 Comp Metabolic Jph122 A/ G Ratio 1.8 Ratio 02/17/2015 Comp Metabolic Cdv325 Os mo 289 mOsmo 02/17/2015 Review of [...] Procedure Codes Date THER/PROPH/DIAG INJ SC/IM CPT-4: 40076 06/24/2018 THER/PROPH/DIAG INJ SC/IM CPT-4: 35050 06/13/2018 ADMIN INFLUENZA VIRU S VAC CPT-4: G0008 06/06/2018 FLU VACC PRSV FREE I NC ANTIG CPT-4: 33190 06/06/2018 THER/PROPH/DIAG INJ SC/IM CPT-4: 37028 06/05/2018 THER/PROPH/DIAG INJ SC/IM CPT-4: 36532 05/30/2018 THER/PROPH/DIAG INJ SC/IM CPT-4: 60516 05/22/2018 THER/PROPH/DIAG INJ SC/IM CPT-4: 69184 05/12/2018 THER/PROPH/DIAG INJ SC/IM CPT-4: 73830 05/02/2018 THER/PROPH/DIAG INJ SC/IM CPT-4: 62538 04/24/2018 THER/PROPH/DIAG INJ SC/IM CPT-4: 15470 04/17/2018 KETOROLAC TROMETHAMI NE INJ CPT-4: J1885 03/07/2018 URINALYSIS NONAUTO W /O SCOPE CPT-4: 00774 03/07/2018 THER/PROPH/DIAG INJ SC/IM CPT-4: 84370 02/20/2018 TRIAMCINOLONE ACET I [place] NOS CPT-4: J3301 01/30/2018 THER/PROPH/DIAG INJ SC/IM CPT-4: 51970 01/17/2018 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 3-[address]: 241033157 CPT-4: G0436 04/25/2017 ADMIN INFLUENZA VIRU S VAC CPT-4: G0008 04/25/2017 ADMIN PNEUMOCOCCAL V ACCINE SNOMED CT: 92914740 CPT-4: G0009 04/25/2017 PNEUMOCOCCAL VACC [address]: 46468844 CPT-4: 35734 04/25/2017 FLU VACC PRSV FREE I NC ANTIG CPT-4: 43733 04/25/2017 ADMIN INFLUENZA VIRU S VAC CPT-4: G0008 05/22/2016 FLU VACC 4 TELLY 3 YRS PLUS IM Formatting Model/CDA Sections, Assigned to/Angela Clemons SNOMED CT: 46012469 CPT-4: 59272Goxkqyq 05/22/2016 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 3-[address]: 197544106 CPT-4: G0436 11/25/2015 URINALYSIS NONAUTO W /O SCOPE CPT-4: 50830 05/09/2015 TRIAMCINOLONE ACET I [place] NOS CPT-4: J3301 04/12/2015 DESTRUCT PREMALG LESION CPT-4: 53444 03/07/2015 DESTRUCT PREMALG LES 2-14 CPT-4: 25007 03/07/2015 REMOVE IMPACTED EAR WAX UNI CPT-4: 29802 12/31/2014 THER/PROPH/DIAG INJ SC/IM CPT-4: 39076 12/23/2014 TRIAMCINOLONE ACET I [place] NOS CPT-4: J3301 12/23/2014 Vital Signs Date Vital 06/06/2018 Blood Pressure 1: 128/76 Code: 8480-6 BMI: 22.0 Code: 21600-5 Heart Rate 1: 81 bpm Height: 5'11" SpO2: 92% Weight: 158 lbs 04/04/2018 Blood Pressure 1: 124/70 Code: 8480-6 BMI: 20.8 Code: 12073-3 Heart Rate 1: 65 bpm Height: 5'11" SpO2: 95% Weight: 149 lbs 03/07/2018 Blood Pressure 1: 148/70 Code: 8480-6 BMI: 21.2 Code: 87302-8 Heart Rate 1: 66 bpm Height: 5'11" SpO2: 94% Weight: 152 lbs 02/20/2018 Blood Pressure 1: 134/58 Code: 8480-6 BMI: 20.5 Code: 81928-8 Heart Rate 1: 61 bpm Height: 5'11" SpO2: 92% Weight: 147 lbs 01/30/2018 Blood Pressure 1: 158/68 Code: 8480-6 BMI: 21.5 Code: 90548-6 Heart Rate 1: 71 bpm Height: 5'11" SpO2: 92% Weight: 154 lbs 01/14/2018 Blood Pressure 1: 156/70 Code: 8480-6 Height: Weight: 01/13/2018 Blood Pressure 1: 148/62 Code: 8480-6 BMI: 20.9 Code: 78380-5 Heart Rate 1: 54 bpm Height: 5'11" SpO2: 97% Weight: 150 lbs 11/19/2017 Blood Pressure 1: 150/60 Code: 8480-6 BMI: 21.8 Code: 18913-8 Heart Rate 1: 63 bpm Height: 5'11" SpO2: 98% Weight: 156 lbs 10/02/2017 Blood Pressure 1: 168/60 Code: 8480-6 BMI: 21.9 Code: 05217-0 Heart Rate 1: 52 bpm Height: 5'11" SpO2: 97% Weight: 157 lbs 07/23/2017 Blood Pressure 1: 170/70 Code: 8480-6 BMI: 21.8 Code: 45972-3 Heart Rate 1: 65 bpm Height: 5'11" SpO2: 98% Weight: 156 lbs 04/25/2017 Blood Pressure 1: 138/60 Code: 8480-6 BMI: 21.6 Code: 37278-9 Heart Rate 1: 55 bpm Height: 5'11" SpO2: 93% Weight: 155 lbs 02/19/2017 Blood Pressure 1: 138/64 Code: 8480-6 BMI: 21.3 Code: 14898-2 Heart Rate 1: 52 bpm Height: 5'11" SpO2: 96% Weight: 152 lbs 8 oz 01/21/2017 Blood Pressure 1: 160/68 Code: 8480-6 BMI: 21.3 Code: 71195-5 Heart Rate 1: 62 bpm Height: 5'11" SpO2: 96% Weight: 153 lbs 12/20/2016 Blood Pressure 1: 124/66 Code: 8480-6 BMI: 21.5 Code: 33945-5 Height: 5'11" Weight: 154 lbs 08/23/2016 Blood Pressure 1: 142/52 Code: 8480-6 BMI: 21.2 Code: 04661-3 Heart Rate 1: 54 bpm Height: 5'11" SpO2: 96% Weight: 152 lbs 05/22/2016 Blood Pressure 1: 130/76 Code: 8480-6 BMI: 21.5 Code: 24662-7 Heart Rate 1: 78 bpm Height: 5'11" SpO2: 92% Weight: 154 lbs 02/24/2016 Blood Pressure 1: 128/80 Code: 8480-6 BMI: 21.2 Code: 73870-1 Heart Rate 1: 74 bpm Height: 5'11" SpO2: 96% Weight: 152 lbs 01/27/2016 Blood Pressure 1: 144/60 Code: 8480-6 BMI: 21.2 Code: 04161-5 Heart Rate 1: 74 bpm Height: 5'11" SpO2: 97% Weight: 152 lbs 11/25/2015 Blood Pressure 1: 110/52 Code: 8480-6 BMI: 21.9 Code: 04292-1 Heart Rate 1: 65 bpm Height: 5'11" SpO2: 92% Weight: 157 lbs 07/28/2015 Blood Pressure 1: 138/62 Code: 8480-6 BMI: 21.8 Code: 50359-6 Heart Rate 1: 63 bpm Height: 5'11" SpO2: 91% Weight: 156 lbs 05/26/2015 Blood Pressure 1: 120/58 Code: 8480-6 BMI: 21.5 Code: 06515-4 Heart Rate 1: 99 bpm Height: 5'11" SpO2: 96% Weight: 154 lbs 05/06/2015 Blood Pressure 1: 120/58 Code: 8480-6 BMI: 21.2 Code: 44415-5 Heart Rate 1: 66 bpm Height: 5'11" SpO2: 96% Weight: 152 lbs 04/25/2015 Blood Pressure 1: 136/62 Code: 8480-6 BMI: 21.2 Code: 37736-9 Heart Rate 1: 63 bpm Height: 5'11" SpO2: 97% Weight: 152 lbs 04/12/2015 Blood Pressure 1: 160/58 Code: 8480-6 BMI: 21.6 Code: 21881-4 Heart Rate 1: 62 bpm Height: 5'11" Weight: 155 lbs 03/24/2015 Blood Pressure 1: 138/68 Code: 8480-6 BMI: 22.0 Code: 60815-4 Heart Rate 1: 65 bpm Height: 5'11" SpO2: 96% Weight: 158 lbs 03/07/2015 Blood Pressure 1: 116/52 Code: 8480-6 BMI: 22.2 Code: 18747-8 Heart Rate 1: 64 bpm Height: 5'11" SpO2: 97% Weight: 159 lbs 02/17/2015 Blood Pressure 1: 148/58 Code: 8480-6 BMI: 21.3 Code: 00945-5 Heart Rate 1: 63 bpm Height: 5'11" SpO2: 97% Weight: 153 lbs 12/31/2014 Blood Pressure 1: 100/60 Code: 8480-6 BMI: 21.8 Code: 53448-1 Heart Rate 1: 68 bpm Height: 5'11" Weight: 156 lbs 12/23/2014 Blood Pressure 1: 148/64 Code: 8480-6 BMI: 21.9 Code: 36756-9 Heart Rate 1: 64 bpm Height: 5'11" [...] Quality chr onic 06/06/2018 None hypertension Quality [facility] hypertension 06/06/2018 None hypertension Onset and [...] Encounters Encounter Performer Loca tion Codes Date ([id number]) [id number] EST. P ATIENT, LEVEL IV Diagnosis: Cellulitis of face[ICD10: L03.211] Diagnosis: Type 2 diabetes mellitus without complications[ICD10: E11.9] Diagnosis: Essential (primary) hypertension[ICD10: I10] Diagnosis: Encounter for immunization[ICD10: Z23] Karmen Ash MD, [facility] CPT-4: 02426 06/06/2018 [id number]) [id number] EST. 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 P ATIENT, LEVEL III Diagnosis: Low back pain[ICD10: M54.5] Diagnosis: Dysuria[ICD10: R30.0] [facility] CPT-4: 09923 03/07/2018 [id number]) [id number] EST. 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 P ATIENT, LEVEL III Diagnosis: Chronic obstructive pulmonary disease with (acute) exacerbation[ICD10: J44.1] Karmen Ash MD, [facility] CPT-4: 58515 01/30/2018 [id number] EST. PATIENT, LEVEL II Diagnosis: Insect bite (nonvenomous), left lower leg, initial encounter[ICD10: S80.862A] Karmen Ash MD, [facility] CPT-4: 63701 01/14/2018 ([id number]) 75406 EST. P ATIENT, LEVEL IV Diagnosis: Type 2 diabetes mellitus with hyperglycemia[ICD10: E11.65] Diagnosis: Chronic obstructive pulmonary disease, unspecified[ICD10: J44.9] Diagnosis: Other fatigue[ICD10: R53.83] Karmen Ash MD, [facility] CPT- 4: 22799 01/13/2018 ([id number]) 15114 EST. P ATIENT, LEVEL IV Diagnosis: Type 2 diabetes mellitus with hyperglycemia[ICD10: E11.65] Diagnosis: Vitamin D deficiency, unspecified[ICD10: E55.9] Diagnosis: Essential (primary) hypertension[ICD10: I10] Diagnosis: Abdominal distension (gaseous)[ICD10: R14.0] Diagnosis: Drug induced constipation[ICD10: K59.03] Karmen Ash MD, [facility] CPT-4: 08794 11/19/2017 93913 EST. PATIENT, LEVEL IV Diagnosis: Low back pain[ICD10: M54.5] Diagnosis: Chronic obstructive pulmonary disease, unspecified[ICD10: J44.9] Brunilda Ash MD, [facility] CPT-4: 54430 10/02/2017 ([id number]) 83638 EST. P ATIENT, LEVEL IV Diagnosis: Essential (primary) hypertension[ICD10: I10] Diagnosis: Type 2 diabetes mellitus with hyperglycemia[ICD10: E11.65] Diagnosis: Vitamin D deficiency, unspecified[ICD10: E55.9] Diagnosis: Mixed hyperlipidemia[ICD10: E78.2] Karmen Ash MD, [facility] CPT-4: 01409 07/23/2017 ([id number]) 25422 EST. P ATIENT, LEVEL IV Diagnosis: Essential (primary) hypertension[ICD10: I10] Diagnosis: Type 2 diabetes mellitus with hyperglycemia[ICD10: E11.65] Diagnosis: Chronic obstructive pulmonary disease, unspecified[ICD10: J44.9] Diagnosis: Nicotine dependence, unspecified, uncomplicated[ICD10: F17.200] Diagnosis: Encounter for immunization[ICD10: Z23] Karmen Ash MD, [facility] CPT-4: 50103 04/25/2017 ([id number]) 82184 EST. P ATIENT, LEVEL IV Diagnosis: Type 2 diabetes mellitus with hyperglycemia[ICD10: E11.65] Diagnosis: Essential (primary) hypertension[ICD10: I10] Diagnosis: Anemia, unspecified[ICD10: D64.9] Karmen Ash MD, [facility] CPT- 4: 68553 02/19/2017 ([id number]) 18097 EST. P ATIENT, LEVEL IV Diagnosis: Slow transit constipation[ICD10: K59.01] Diagnosis: Gastro-esophageal reflux disease without esophagitis[ICD10: K21.9] Diagnosis: Essential (primary) hypertension[ICD10: I10] Karmen Ash MD, [facility] CPT-4: 43634 01/21/2017 ([id number]) 04456 EST. P ATIENT, LEVEL IV Diagnosis: Type 2 diabetes mellitus with hyperglycemia[ICD10: E11.65] Diagnosis: Vitamin D deficiency, unspecified[ICD10: E55.9] Diagnosis: Essential (primary) hypertension[ICD10: I10] Diagnosis: Chronic obstructive pulmonary disease, unspecified[ICD10: J44.9] Karmen Ash MD, [facility] CPT-4: 49497 12/20/2016 ([id number]) 66375 EST. P ATIENT, LEVEL IV Diagnosis: Type 2 diabetes mellitus with hyperglycemia[ICD10: E11.65] Diagnosis: Essential (primary) hypertension[ICD10: I10] Diagnosis: Mixed hyperlipidemia[ICD10: E78.2] Diagnosis: Vitamin D deficiency, unspecified[ICD10: E55.9] Karmen Ash MD, [facility] CPT-4: 28322 08/23/2016 ([id number]) 06239 EST. P ATIENT, LEVEL IV Diagnosis: Type 2 diabetes mellitus with hyperglycemia[ICD10: E11.65] Diagnosis: Essential (primary) hypertension[ICD10: I10] Diagnosis: Chronic obstructive pulmonary disease, unspecified[ICD10: J44.9] Karmen Ash MD, [facility] CPT-4: 80322 05/22/2016 ([id number]) 11252 EST. P ATIENT, LEVEL III Diagnosis: Dysuria[ICD10: R30.0] Diagnosis: Essential (primary) hypertension[ICD10: I10] Karmen Ash MD, [facility] CPT-4: 73007 02/24/2016 ([id number]) 72992 EST. P ATIENT, LEVEL IV Diagnosis: Gastro-esophageal reflux disease without esophagitis[ICD10: K21.9] Diagnosis: Slow transit constipation[ICD10: K59.01] Diagnosis: Type 2 diabetes mellitus with hyperglycemia[ICD10: E11.65] Karmen Ash MD, [facility] CPT-4: 96050 01/27/2016 ([id number]) 09162 EST. P ATIENT, LEVEL IV Diagnosis: Essential (primary) hypertension[ICD10: I10] Diagnosis: Type 2 diabetes mellitus with hyperglycemia[ICD10: E11.65] Diagnosis: Vitamin D deficiency, unspecified[ICD10: E55.9] Diagnosis: Chronic obstructive pulmonary disease, unspecified[ICD10: J44.9] Diagnosis: Mixed hyperlipidemia[ICD10: E78.2] Diagnosis: Tobacco use[ICD10: Z72.0] Karmen Ash MD, [facility] CPT- 4: 65295 11/25/2015 ([id number]) 83689 EST. P ATIENT, LEVEL IV Diagnosis: Type 2 diabetes mellitus with hyperglycemia[ICD10: E11.65] Diagnosis: Essential (primary) hypertension[ICD10: I10] Diagnosis: Vitamin D deficiency, unspecified[ICD10: E55.9] Karmen Ash MD, [facility] CPT-4: 42031 07/28/2015 ([id number]) 08701 EST. P ATIENT, LEVEL III Diagnosis: Type 2 diabetes mellitus with hyperglycemia[ICD10: E11.65] Diagnosis: Essential (primary) hypertension[ICD10: I10] Violeta Ash MD, [facility] CPT-4: 11035 05/26/2015 ([id number]) 54187 EST. P ATIENT, LEVEL III Diagnosis: DIABETES TYPE II[ICD9: 250.00] Diagnosis: COPD (chronic obstructive pulmonary disease)[ICD9: 496] Diagnosis: ESSENTIAL HYPERTENSION[ICD9: 401.9] Diagnosis: Cough[ICD9: 786.2] Violeta Ash MD, [facility] CPT-4: 94620 05/06/2015 ([id number]) 42998 EST. P ATIENT, LEVEL III Diagnosis: COPD (chronic obstructive pulmonary disease)[ICD9: 496] Diagnosis: DIABETES TYPE II[ICD9: 250.00] Diagnosis: Muscle ache[ICD9: 729.1] Karmen Ash MD, [facility] CPT- 4: 61052 04/25/2015 ([id number]) 00036 EST. P ATIENT, LEVEL III Diagnosis: ACTINIC KERATOSIS[ICD9: 702.0] Diagnosis: COPD (chronic obstructive pulmonary disease)[ICD9: 496] Diagnosis: DIABETES TYPE II[ICD9: 250.00] Diagnosis: ACUTE URI[ICD9: 465.9] Violeta Ash MD, [facility] CPT-4: 32660 04/12/2015 ([id number]) 01502 EST. P ATIENT, LEVEL III Diagnosis: DIABETES TYPE II[ICD9: 250.00] Violeta Ash MD, [facility] CPT-4: 65075 03/24/2015 ([id number]) 39895 EST. P ATIENT, LEVEL IV Diagnosis: DIABETES TYPE II[ICD9: 250.00] Diagnosis: Hypoglycemia[ICD9: 251.2] Diagnosis: Skin texture changes[ICD9: 782.8] Violeta Ash MD, [facility] CPT-4: 30878 03/07/2015 ([id number]) 71654 EST. P ATIENT, LEVEL IV Diagnosis: COPD (chronic obstructive pulmonary disease)[ICD9: 496] Diagnosis: Fatigue[ICD9: 780.79] Diagnosis: Insulin dependent diabetes mellitus[ICD9: 250.00] Diagnosis: Unsteady gait[ICD9: 781.2] [facility] CPT-4: 65356 02/17/2015 ([id number]) 42907 EST. P [facility], LEVEL IV Diagnosis: BPPV (benign paroxysmal positional vertigo)[ICD9: 386.11] Diagnosis: Impacted cerumen[ICD9: 380.4] Diagnosis: ESSENTIAL HYPERTENSION[ICD9: 401.9] Diagnosis: Insulin dependent diabetes mellitus[ICD9: 250.00] [facility] CPT-4: 73848 12/23/2014 ([id number]) OFFICE VISI , [facility] - LEVEL 4 Diagnosis: Insulin dependent diabetes mellitus[ICD9: 250.00] Diagnosis: BPPV (benign paroxysmal positional vertigo)[ICD9: 386.11] Diagnosis: COPD (chronic obstructive pulmonary disease)[ICD9: 496] Diagnosis: Tobacco abuse[ICD9: 305.1] Diagnosis: Osteoarthritis[ICD9: 715.90] [facility] CPT- 4: 07169 12/09/2014 Plan of Care Planned Activity Notes C odes Status Date Patient Education: Patient Medication Summary Completed 06/24/2018 [...] in pain. 06/06/2018 Appointment: Karmen Espinal WPtel: [address] [place], [place] [phone] (15 min) Moderate 06/06/2018 Patient Education: Patient [...] months 04/04/2018 Appointment: Karmen Espinal WPtel: [phone] [phone] [place] (15 min) Moderate 04/04/2018 Patient Education: Patient Medication Summary Completed 04/04/2018 Care Plan: Cbc With Differential Pending 04/04/2018 Care Plan: Testosterone repeat in 2 months Pending 04/04/2018 Appointment: Karmen Espinal WPtel: [phone] [phone] [place] (15 min) Moderate 03/25/2018 Visit Plan: Low back pain -history of kidney stone-UA negative today -increase fluids and call if pain does not resolve or if any worse. 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 01/30/2018 Appointment: Karmen Espinal WPtel: [phone] (15 min) Moderate 01/30/2018 Patient Education: Patient Medication Summary Completed 01/30/2018 Appointment: Karmen Espinal WPtel: [phone] (15 min) Moderate 01/28/2018 Appointment: Injection 01/17/2018 Patient Education: Patient Medication Summary Completed 01/17/2018 Visit Plan: Cellulitis - start oral antibiotics as directed, return to clinic as previously directed, call for acute change in symptoms, worsening redness, warmth, discharge. 01/14/2018 Appointment: Karmen Espinal WPtel: [phone] (10 min) Simple 01/14/2018 Patient Education: Patient [...] controlled. 01/13/2018 Appointment: Karmen Espinal WPtel: [phone] [phone] (15 min) Moderate 01/13/2018 Patient Education: Patient Medication Summary Completed 01/13/2018 Referral: Hugo Villatoro [facility]:[phone] Patient's informed. Referral info ned monroy. [...] change in blood pressure readings at home. Otldricz-tkdhek-xzsau to see Dr Villatoro Constipation-start linzess daily 11/19/2017 Appointment: Karmen Espinal WPtel: [phone] [phone] (30 min) Complex 11/19/2017 Patient Education: Patient Medication Summary Completed 11/19/2017 Care Plan: Referral Order bloating, nausea SNOMED-CT : 544443337 Pending 11/19/2017 Visit Plan: Low back pain- [...] acute changes. 10/02/2017 Appointment: Brunilda Maravilla WPtel: [address] [place], [place] [address] (15 min) Moderate 10/02/2017 Patient Education: Patient [...] controlled. 07/23/2017 [phone] (30 min) Complex 07/23/2017 Patient Education: [...] history 04/25/2017 Appointment: [phone] [phone] (30 min) Complex 04/25/2017 Patient Education: [...] readings are starting to become less controlled. Anldyl-asmdezw-cgbwx labs 02/19/2017 Appointment: [phone] [phone] (30 min) Complex 02/19/2017 Patient Education: [...] month 01/21/2017 Appointment: [phone] [phone] (30 min) Complex 01/21/2017 Patient Education: Patient Medication Summary Completed 01/21/2017 Patient Education: Smoking and Tobacco Addiction Completed 01/21/2017 Patient Education: Hypertension Completed 01/21/2017 Care Plan: Referral Order SNOMED-CT : 874638423 Pending 01/21/2017 Visit Plan: Diabetes Mellitus - [...] acute changes. 12/20/2016 Appointment: Karmen Espinal WPtel: [phone] [phone] (30 min) Complex 12/20/2016 Patient Education: Patient Medication Summary Completed 12/20/2016 Patient Education: Smoking and Tobacco Addiction Completed 12/20/2016 Patient Education: Hypertension Completed 12/20/2016 Appointment: Karmen Espinal WPtel: [phone] [phone] (30 min) Complex 09/06/2016 Visit Plan: Diabetes [...] level 08/23/2016 Appointment: [facility] [phone] [phone] (30 min) Complex 08/23/2016 Patient Education: [...] acute changes. 05/22/2016 Appointment: Karm[facility] Espinal [facility]Ptel: [phone] (30 min) Complex 05/22/2016 Patient Education: Patient Medication Summary Completed 05/22/2016 Patient Education: Smoking and Tobacco Addiction Completed 05/22/2016 Care Plan: Cbc With Differential Ordered 05/22/2016 Care Plan: %Hba1C LOIN C : 52778-4 Ordered 05/22/2016 Care Plan: Tsh Ordered 05/22/2016 [...] with update 02/24/2016 Appointment: Karmen Espinal WPtel: [place] [phone] (30 min) Complex 02/24/2016 Patient Education: Patient [...] regimen. 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 Wigilpze-jvehnqta-FEMU SIMVASTATIN X 2 WEEKS AND CALL WITH [...] Care Plan: COMPLETE CBC AUTOMATED LOINC : 31247-3 Ordered 03/24/2015 Visit Plan: Diabetes Mellitus - [...] for removal. 03/07/2015 Appointment: [facility]ioleta Ash [facility]el: [facility] (15 min) Moderate [...] was removed by the [facility] ctitioner due to the [...] Care Plan: COMPLETE CBC AUTOMATED LOINC : 31674-4 Ordered 12/23/2014 Visit Plan: BPPV - Benign [...] appt 12/09/2014 Appointment: Karmen Espinal WPtel: [phone] [phone] [place] ([place]) New Patient 12/09/2014 Patient Education: Patient Medication Summary Completed 12/09/2014 Patient Education: .Amazing charts Parox ysmal positional vertigo Completed 12/09/2014 Patient Education: Smoking and Tobacco Addiction Completed 12/09/2014 [phone] [facility] App[facility]ment Requested Referral: Luis Donohue Referral [...] readings are starting to become less controlled. Utkfgz-vzusniq-gmsuv labs . Cellulitis - start oral antibiotics [...] change in blood pressure readings at home. Dkbtiima-nnukcm-wkxrw to see Dr Villatoro Constipation-start linzess daily [...] POTENTIAL SIDE EFFECTS AND WORSENING OF SYMPTOMS. Zichaiyu-ymvmzjck-LAQN SIMVASTATIN X 2 WEEKS AND CALL WITH [...] to become less controlled. BRING BLOOD SUGAR LO G TO NEXT [...] and will check at next appt . Diabetes Mellitus - controlled - per [...]
--- OUTSIDE RECORDS SUMMARY | 2020-03-29 09:44 | XMS REPORT | CCD ---
Author Author Dick Espinal Organization Violeta Ash MD, [facility] Address [address] [place] [address] Phone Care Team Providers Care Steward/Stewardess Second Class Name Role Phone PP Unavailable CCM Unavailable Summary Purpose Interface Exchange Insurance Providers Payer name Policy type / Coverage type Covered constitution party ID Effective Begin Date Effective End Date WPS Medicare Part B Medicare Part B [id number] Unknown Unknown [employer] Medicar e Part B [id number] Unknown Unkn own Family history Father Diagnosis Age At Onset Cancer Unknown Mother Diagnosis Age At Onset Cancer Unknown Social History Social History Element Codes Description Effective Dates Marital status Unknown M arried 12/09/2014 Employment Unknown Retir ed 12/09/[address]: 10301154 Currently smokes tobacco 12/09/2014 Number of years using tobacco Unknown > 50 12/09/2014 Number of cigarettes/day Unknown 30 (Pack and a half) 12/09/[address]: 951921041 Never drinks alcohol 12/09/2014 Allergies, Adverse Reactions, [...] 5 mg-linh taminophen 325 mg tablet RxNorm: 079234 1 Tablet(s) PO Q6-8H as needed 06/23/2018 07/17/2018 Active testosterone cypiona te 200 mg/mL intramuscular oil RxNorm: 337286 Milliliter(s) IM 06/13/2018 06/13/2018 In active testosterone cypiona te 200 mg/mL intramuscular oil RxNorm: 256093 Milliliter(s) IM 06/05/2018 06/05/2018 In active testosterone cypiona te 200 mg/mL intramuscular oil RxNorm: 477598 1/2 Milliliter(s) IM weekly 05/30/2018 09/26/2018 Active testosterone cypiona te 200 mg/mL intramuscular oil RxNorm: 553001 Milliliter(s) IM 05/30/2018 05/30/2018 In active testosterone cypiona te 200 mg/mL intramuscular oil RxNorm: 612396 Milliliter(s) IM 05/22/2018 05/22/2018 In active hydrocodone 5 mg-linh taminophen 325 mg tablet RxNorm: 238390 1 Tablet(s) PO Q6-8H as needed 05/20/2018 06/13/2018 Inactive testosterone cypiona te 200 mg/mL intramuscular oil RxNorm: 493336 1/2 Milliliter(s) IM 05/12/2018 05/12/2018 Inactive testosterone cypiona te 200 mg/mL intramuscular oil RxNorm: 141376 Milliliter(s) IM 05/02/2018 05/02/2018 In active testosterone cypiona te 200 mg/mL intramuscular oil RxNorm: 883218 1/2 Milliliter(s) IM weekly 04/24/2018 05/29/2018 Inactive testosterone cypiona te 200 mg/mL intramuscular oil RxNorm: 931070 0.5 Milliliter(s) IM 04/24/2018 04/24/2018 Inactive hydrocodone 5 mg-linh taminophen 325 mg tablet RxNorm: 899409 1 Tablet(s) PO Q6-8H as needed 04/22/2018 05/16/2018 Inactive testosterone cypiona te 200 mg/mL intramuscular oil RxNorm: 397652 1/2 Milliliter(s) IM 04/17/2018 04/17/2018 Inactive testosterone cypiona te 200 mg/mL intramuscular oil RxNorm: 625751 1/2 Milliliter(s) IM weekly 04/16/2018 04/23/2018 Inactive Jardiance 10 mg tablet RxNorm: 3849565 1 Tablet(s) PO daily 04/04/2018 12/29/2018 Active Protonix 40 mg table t,delayed release RxNorm: 007802 1 Tablet(s) PO daily TAKE 1 TABLET BY MOUTH DAILY 04/04/2018 03/29/2019 Active - Ref: [id number] testosterone cypiona te 200 mg/mL intramuscular oil RxNorm: 010980 1 Milliliter(s) IM monthly 04/04/2018 04/15/2018 Inactive hydrocodone 5 mg-linh taminophen 325 mg tablet RxNorm: 680135 1 Tablet(s) PO Q6-8H as needed 03/19/2018 04/12/2018 Inactive Flomax 0.4 mg capsule RxNorm: 076012 1 Capsule(s) PO daily 03/10/2018 03/04/2019 Active Urecholine 25 mg tablet RxNorm: 005066 1 Tablet(s) PO BID 03/10/2018 07/07/2018 Active ketorolac 60 mg/2 mL intramuscular solution RxNorm: 0291710 Milliliter(s) IM 03/07/2018 03/07/2018 In active metformin 500 mg tablet RxNorm: 458775 Tablet(s) TAKE 1 TABLET BY MOUTH DAILY 02/20/2018 02/14/2019 Ac tive 1 q am and 1/2 tab q pm hydrocodone 5 mg-linh taminophen 325 mg tablet RxNorm: 032395 1 Tablet(s) PO Q6-8H as needed 02/20/2018 03/16/2018 Inactive Kenalog 40 mg/mL bartolome pension for injection RxNorm: 6810057 1.5 Milliliter(s) In j 01/30/2018 01/30/2018 In active hydrocodone 5 mg-linh taminophen 325 mg tablet RxNorm: 872626 1 Tablet(s) PO Q6-8H as needed 01/23/2018 02/16/2018 Inactive Urecholine 25 mg tablet RxNorm: 324492 1 Tablet(s) PO BID 01/22/2018 03/09/2018 Inactive Flomax 0.4 mg capsule RxNorm: 691519 1 Capsule(s) PO daily 01/22/2018 03/09/2018 Inactive Flomax 0.4 mg capsule RxNorm: 146433 1 Capsule(s) PO daily 01/22/2018 01/21/2018 Inactive Urecholine 25 mg tablet RxNorm: 659349 1 Tablet(s) PO BID 01/22/2018 01/21/2018 Inactive testosterone cypiona te 200 mg/mL intramuscular oil RxNorm: 750749 Milliliter(s) IM 01/17/2018 01/17/2018 In active testosterone cypiona te 200 mg/mL intramuscular oil RxNorm: 166802 1 Milliliter(s) IM monthly 01/17/2018 04/03/2018 Inactive lisinopril 10 mg tablet RxNorm: 083250 TAKE 1 TABLET BY MOUTH TWO TIMES DAILY 01/14/2018 01/08/2019 Ac tive - First Attempt Ref: [id number] doxycycline hyclate 100 mg tablet RxNorm: 419870 1 Tablet(s) PO BID 01/14/2018 01/23/2018 Inactive Xanax 0.5 mg tablet RxNorm: 660850 1 Tablet(s) PO TID 01/08/2018 04/07/2018 Inactive nystatin 100,000 uni t/mL oral suspension RxNorm: 364654 4 Milliliter(s) PO QI D Swish and swallow 01/08/2018 01/07/2018 Inactive nystatin 100,000 uni t/mL oral suspension RxNorm: 252929 4 Milliliter(s) PO QI D Swish and swallow 01/08/2018 01/12/2018 Inactive simvastatin 40 mg ta blet RxNorm: 019142 TAKE 1 TABLET BY MOUT H DAILY AT BEDTIME 12/30/2017 12/24/2018 tive - First Attempt Ref: [id number] metformin 500 mg tablet RxNorm: 916486 TAKE 1 TABLET BY MOUTH DAILY 12/30/2017 02/19/2018 Inactive - First Attempt Ref: [id number] hydrocodone 5 mg-linh taminophen 325 mg tablet RxNorm: 043662 1 Tablet(s) PO Q6-8H as needed 12/25/2017 01/18/2018 Inactive Protonix 40 mg table t,delayed release RxNorm: 588342 Tablet(s) TAKE 1 TABL ET BY MOUTH DAILY 11/20/2017 04/03/2018 Inactive - Ref: [id number] Linzess 72 mcg capsule RxNorm: 1304735 1 Capsule(s) PO daily 11/19/2017 No Stop Date Active hydrocodone 5 mg-linh taminophen 325 mg tablet RxNorm: 158944 1 Tablet(s) PO Q6-8H as needed 11/19/2017 12/13/2017 Inactive hydrocodone 5 mg-linh taminophen 325 mg tablet RxNorm: 784375 1 Tablet(s) PO Q6-8H as needed 10/28/2017 11/18/2017 Inactive Xanax 0.5 mg tablet RxNorm: 841648 1 Tablet(s) PO TID 10/25/2017 12/22/2017 Inactive Xanax 0.5 mg tablet RxNorm: 435790 TAKE ONE TABLET BY MOUTH THREE TIMES A D AY 10/24/2017 12/22/2017 In active hydrocodone 5 mg-linh taminophen 325 mg tablet RxNorm: 542169 1 Tablet(s) PO Q6-8H as needed 09/30/2017 10/24/2017 Inactive Protonix 40 mg table t,delayed release RxNorm: 220853 TAKE 1 TABLET BY MOUT H DAILY 09/16/2017 11/19/2017 In active - Ref: [id number] Yovana Perkins 300 unit/mL (1.5 mL) subcutaneous insulin pen RxNorm: 3323560 35 Unit(s) SQ QHS 08/30/2017 No Stop Date Active dosage increase hydrocodone 5 mg-linh taminophen 325 mg tablet RxNorm: 841455 1 Tablet(s) PO Q6-8H as needed 08/28/2017 09/29/2017 Inactive hydrocodone 5 mg-linh taminophen 325 mg tablet RxNorm: 796578 1 Tablet(s) PO Q6-8H as needed 07/23/2017 08/24/2017 Inactive lisinopril 10 mg tablet RxNorm: 359609 1 Tablet(s) PO BID Take 1 tablet by mout h daily 07/23/2017 01/13/2018 Inactive hydrocodone 5 mg-linh taminophen 325 mg tablet RxNorm: 164772 1 Tablet(s) PO Q6-8H as needed 06/27/2017 07/22/2017 Inactive Xanax 0.5 mg tablet RxNorm: 843753 1 Tablet(s) PO TID 06/18/2017 10/25/2017 Inactive hydrocodone 5 mg-linh taminophen 325 mg tablet RxNorm: 184340 1 Tablet(s) PO Q6-8H as needed 05/27/2017 06/26/2017 Inactive Levaquin 500 mg tablet RxNorm: 734939 1 Tablet(s) PO daily 05/24/2017 05/23/2017 Inactive Levaquin 500 mg tablet RxNorm: 643573 1 Tablet(s) PO daily 05/24/2017 05/30/2017 Inactive Protonix 40 mg table t,delayed release RxNorm: 358050 Take 1 tablet by mout h daily 04/29/2017 09/15/2017 In active - Ref: [id number] hydrocodone 5 mg-linh taminophen 325 mg tablet RxNorm: 271983 1 Tablet(s) PO Q6-8H as needed 04/25/2017 05/26/2017 Inactive metformin 500 mg tablet RxNorm: 812476 Take 1 tablet by mouth daily 04/08/2017 12/29/2017 Inactive - First Attempt Ref: [id number] hydrocodone 5 mg-linh taminophen 325 mg tablet RxNorm: 959924 1 Tablet(s) PO Q6-8H as needed 03/27/2017 04/24/2017 Inactive hydrocodone 5 mg-linh taminophen 325 mg tablet RxNorm: 770817 1 Tablet(s) PO Q6-8H as needed 02/25/2017 03/26/2017 Inactive Protonix 40 mg table t,delayed release RxNorm: 854749 Tablet(s) Take 1 tabl et by mouth BID 02/25/2017 04/28/2017 Inactive Protonix 40 mg table t,delayed release RxNorm: 644430 Tablet(s) Take 1 tabl et by mouth BID 02/19/2017 02/18/2017 Inactive Protonix 40 mg table t,delayed release RxNorm: 404548 Tablet(s) Take 1 tabl et by mouth BID 02/19/2017 02/24/2017 Inactive lisinopril 10 mg tablet RxNorm: 553497 Take 1 tablet by mouth daily 01/29/2017 07/22/2017 Inactive - First Attempt Ref: [id number] hydrocodone 5 mg-linh taminophen 325 mg tablet RxNorm: 761315 1 Tablet(s) PO Q6-8H as needed 01/25/2017 02/24/2017 Inactive simvastatin 40 mg ta blet RxNorm: 654383 Tablet(s) Take 1 tabl et by mouth daily at bedtime 01/03/2017 12/28/2017 Inactive lisinopril 10 mg tablet RxNorm: 914692 Tablet(s) Take 1 tablet by mouth daily 01/03/2017 01/28/2017 In active Protonix 40 mg table t,delayed release RxNorm: 352628 Tablet(s) Take 1 tabl et by mouth daily 12/28/2016 02/18/2017 Inactive hydrocodone 5 mg-linh taminophen 325 mg tablet RxNorm: 893306 1 Tablet(s) PO Q6-8H as needed 12/26/2016 01/24/2017 Inactive Xanax 0.5 mg tablet RxNorm: 651748 1 Tablet(s) PO TID 12/12/2016 03/11/2017 Inactive simvastatin 40 mg ta blet RxNorm: 334809 Tablet(s) Take 1 tabl et by mouth daily at bedtime 11/30/2016 01/02/2017 Inactive simvastatin 40 mg ta blet RxNorm: 049981 Take 1 tablet by mout h daily at bedtime 11/29/2016 11/29/2016 In active - First Attempt Ref: [id number] Protonix 40 mg table t,delayed release RxNorm: 811547 Take 1 tablet by mout h daily 11/27/2016 12/27/2016 In active - First Attempt Ref: [id number] hydrocodone 5 mg-linh taminophen 325 mg tablet RxNorm: 524206 1 Tablet(s) PO Q6-8H as needed 11/26/2016 12/25/2016 Inactive hydrocodone 5 mg-linh taminophen 325 mg tablet RxNorm: 788466 1 Tablet(s) PO Q8 as needed 10/24/2016 11/25/2016 Inactive Xanax 0.5 mg tablet RxNorm: 648617 1 Tablet(s) PO TID 10/09/2016 12/25/2016 Inactive hydrocodone 5 mg-linh taminophen 325 mg tablet RxNorm: 471622 1 Tablet(s) PO Q8 as needed 09/27/2016 10/23/2016 Inactive lisinopril 10 mg tablet RxNorm: 798505 Take 1 tablet by mouth daily 09/25/2016 01/02/2017 Inactive - First Attempt Ref: [id number] Vitamin D2 50,000 un it capsule RxNorm: 797808 1 Capsule(s) PO QW 09/06/2016 No Stop Date Active hydrocodone 5 mg-linh taminophen 325 mg tablet RxNorm: 275903 1 Tablet(s) PO Q8 as needed 08/28/2016 09/26/2016 Inactive Toujeo SoloStar 300 unit/mL (1.5 mL) subcutaneous insulin pen RxNorm: 6458466 25 Unit(s) SQ QHS 08/23/2016 08/29/2017 Inactive dosage increase hydrocodone 5 mg-linh taminophen 325 mg tablet RxNorm: 835277 1 Tablet(s) PO Q8 as needed 07/26/2016 08/27/2016 Inactive Protonix 40 mg table t,delayed release RxNorm: 561187 Take 1 tablet by mout h daily 07/24/2016 11/26/2016 In active - First Attempt Ref: [id number] hydrocodone 5 mg-linh taminophen 325 mg tablet RxNorm: 299034 1 Tablet(s) PO Q8 as needed 06/19/2016 07/21/2016 Inactive Yovana SoloStar 300 unit/mL (1.5 mL) subcutaneous insulin pen RxNorm: 8256844 32 Unit(s) SQ QHS 05/30/2016 08/22/2016 Inactive dosage increase hydrocodone 5 mg-linh taminophen 325 mg tablet RxNorm: 206470 1 Tablet(s) PO Q8 as needed 05/22/2016 06/18/2016 Inactive hydrocodone 5 mg-linh taminophen 325 mg tablet RxNorm: 053163 1 Tablet(s) PO Q8 as needed 04/18/2016 05/17/2016 Inactive Protonix 40 mg table t,delayed release RxNorm: 673606 Take 1 tablet by mout h daily 04/05/2016 07/03/2016 In active - Ref: [id number] metformin 500 mg tablet RxNorm: 905130 Take 1 tablet by mouth daily 04/04/2016 07/02/2016 Inactive - Ref: [id number] Xanax 0.5 mg tablet RxNorm: 156601 1 Tablet(s) PO TID 03/30/2016 09/25/2016 Inactive Xanax 0.5 mg tablet RxNorm: 049816 1 Tablet(s) PO TID 03/23/2016 12/25/2016 Inactive hydrocodone 5 mg-linh taminophen 325 mg tablet RxNorm: 455143 1 Tablet(s) PO Q8 as needed 03/06/2016 04/04/2016 Inactive Cipro 500 mg tablet RxNorm: 469616 1 Tablet(s) PO BID 02/24/2016 03/04/2016 Inactive Miralax 17 gram oral powder packet RxNorm: 818819 1 packet PO every oth er day 01/27/2016 No Stop Date Active hydrocodone 5 mg-linh taminophen 325 mg tablet RxNorm: 996551 1 Tablet(s) PO Q8 as needed 01/27/2016 02/25/2016 Inactive lisinopril 10 mg tablet RxNorm: 683111 1 Tablet(s) PO daily 01/12/2016 09/24/2016 Inactive simvastatin 40 mg ta blet RxNorm: 549420 1 Tablet(s) PO QHS 01/12/2016 11/28/2016 Inactive simvastatin 40 mg ta blet RxNorm: 774825 1 Tablet(s) PO QHS 01/11/2016 01/11/2016 Inactive lisinopril 10 mg tablet RxNorm: 632487 1 Tablet(s) PO daily 01/06/2016 01/11/2016 Inactive simvastatin 40 mg ta blet RxNorm: 352254 1 Tablet(s) PO daily 12/28/2015 01/10/2016 Inactive hydrocodone 5 mg-linh taminophen 325 mg tablet RxNorm: 940925 1 Tablet(s) PO Q8 as needed 12/27/2015 01/26/2016 Inactive Xanax 0.5 mg tablet RxNorm: 937698 1 Tablet(s) PO TID 11/30/2015 03/29/2016 Inactive meclizine 25 mg tablet RxNorm: 013716 1 Tablet(s) PO Q6 PRN TAKE ONE TABLET BY MOUTH EVERY 6 HOURS NEEDED 11/25/2015 02/22/2016 Inactive Toujeo SoloStar 300 unit/mL (1.5 mL) subcutaneous insulin pen RxNorm: 1975848 30 Unit(s) SQ QHS 11/25/2015 05/29/2016 Inactive dosage increase omeprazole 20 mg cap jacquelyn,delayed release RxNorm: 623830 1 Capsule(s) PO daily 10/06/2015 01/26/2016 In active Toujeo SoloStar 300 unit/mL (1.5 mL) subcutaneous insulin pen RxNorm: 5215871 35 Unit(s) SQ QHS 08/02/2015 11/24/2015 Inactive dosage increase Vitamin D2 50,000 un it capsule RxNorm: 585160 1 Capsule(s) PO QW 08/02/2015 09/05/2016 Inactive hydrocodone 5 mg-linh taminophen 325 mg tablet RxNorm: 990326 1 Tablet(s) PO Q8 as needed 07/11/2015 12/26/2015 Inactive Xanax 0.5 mg tablet RxNorm: 467885 1 Tablet(s) PO TID 06/30/2015 06/29/2015 Inactive Xanax 0.5 mg tablet RxNorm: 831337 1 Tablet(s) PO TID 06/30/2015 12/25/2015 Inactive hydrocodone 5 mg-linh taminophen 325 mg tablet RxNorm: 051524 1 Tablet(s) PO Q8 as needed 05/06/2015 07/10/2015 Inactive Symbicort 160 mcg-4. 5 mcg/actuation HFA aerosol inhaler RxNorm: 6095501 INH 04/25/2015 No Stop Date Active Levemir FlexTouch 10 0 unit/mL (3 mL) subcutaneous insulin pen RxNorm: 675900 30 Unit(s) SQ QHS 04/25/2015 11/24/2015 Inactive prednisone 20 mg tablet RxNorm: 054963 1 Tablet(s) PO BID 04/25/2015 04/29/2015 Inactive metformin 500 mg tablet RxNorm: 047051 1 Tablet(s) PO daily 04/25/2015 04/03/2016 Inactive amoxicillin 500 mg c apsule RxNorm: 865395 1 Capsule(s) PO TID 04/14/2015 04/13/2015 Inactive amoxicillin 500 mg c apsule RxNorm: 854558 1 Capsule(s) PO TID a nd recommend probiotic tid (otc) 04/14/2015 04/20/2015 Inactive Kenalog 40 mg/mL bartolome pension for injection RxNorm: 7068614 Milliliter(s) Inj 04/12/2015 04/12/2015 In active hydrocodone 5 mg-linh taminophen 325 mg tablet RxNorm: 826573 1 Tablet(s) PO Q8 as needed 03/30/2015 05/05/2015 Inactive Lantus 100 unit/mL s ubcutaneous solution RxNorm: 715273 25 Unit(s) SQ QPM 03/24/2015 04/25/2015 In active meclizine 25 mg tablet RxNorm: 722439 Tablet(s) TAKE ONE TABLET BY MOUTH EVERY 6 HOURS NEEDED 03/08/2015 04/06/2015 Inactive meclizine 25 mg tablet RxNorm: 174925 TAKE ONE TABLET BY MOUTH EVERY 6 HOURS A S NEEDED 02/25/2015 03/03/2015 Inactive Lantus 100 unit/mL s ubcutaneous solution RxNorm: 578956 20 Unit(s) SQ QPM 02/23/2015 03/23/2015 In active Lantus 100 unit/mL s ubcutaneous solution RxNorm: 571030 25 Unit(s) SQ QPM 02/23/2015 02/22/2015 In active hydrocodone 5 mg-linh taminophen 325 mg tablet RxNorm: 440056 1 Tablet(s) PO Q8 as needed 02/17/2015 03/29/2015 Inactive Xanax 0.5 mg tablet RxNorm: 813057 1 Tablet(s) PO TID 02/03/2015 06/29/2015 Inactive Lantus 100 unit/mL s ubcutaneous solution RxNorm: 872190 20 Unit(s) SQ QPM 12/29/2014 02/22/2015 In active Phenergan 12.5 mg re ctal suppository RxNorm: 616172 1 Suppository RTL Q6 PRN 12/23/2014 No Stop Date Active nausea Kenalog 40 mg/mL bartolome pension for injection RxNorm: 5178537 Milliliter(s) Inj 12/23/2014 12/23/2014 In active prednisone 20 mg tablet RxNorm: 296898 2 Tablet(s) PO daily 12/13/2014 12/17/2014 Inactive prednisone 20 mg tablet RxNorm: 342330 2 Tablet(s) PO daily 12/13/2014 12/12/2014 Inactive meclizine 25 mg tablet RxNorm: 890612 1 Tablet(s) PO Q6 PRN 12/09/2014 02/24/2015 Inactive hydrocodone 5 mg-linh taminophen 325 mg tablet RxNorm: 267108 1 Tablet(s) PO Q8 as needed 12/09/2014 02/16/2015 Inactive Vitamin B-12 1,000 m cg/mL oral drops RxNorm: 2407211 1 Milliliter(s) PO d aily No Start Date Active Alphagan P 0.1 % eye drops RxNorm: 535935 1 Drop(s) OPH BID No Start Date Active aspirin 325 mg table t,delayed release RxNorm: 507566 1 Tablet(s) PO daily No Start Date Active Tricor 145 mg tablet RxNorm: 817208 1 Tablet(s) PO daily No Start Date Active vitamin N40-qeshhcy B1 oral liquid RxNorm: 1,000 Microgram(s) PO daily No Start Date Active atenolol 50 mg tablet RxNorm: 851000 1 Tablet(s) PO daily No Start Date Active Protonix 40 mg table t,delayed release RxNorm: 396285 1 Tablet(s) PO daily No Start Date 04/04/2016 Inactive glipizide 10 mg tablet RxNorm: 063872 1 Tablet(s) PO BID No Start Date 03/22/2015 Inactive Lantus 100 unit/mL s ubcutaneous solution RxNorm: 853342 15 Unit(s) SQ QPM No Start Date 12/28/2014 Inactive lisinopril 10 mg tablet RxNorm: 253095 1 Tablet(s) PO daily No Start Date 01/05/2016 Inactive Vitamin D2 50,000 un it capsule RxNorm: 967157 1 Capsule(s) PO QW No Start Date 08/01/2015 Inactive Toujeo SoloStar 300 unit/mL (1.5 mL) subcutaneous insulin pen RxNorm: 6999844 30 Unit(s) SQ QHS No Start Date 08/01/2015 Inactive simvastatin 40 mg ta blet RxNorm: 156277 1 Tablet(s) PO daily No Start Date 12/27/2015 Inactive testosterone cypiona te 200 mg/mL intramuscular oil RxNorm: 311965 1 Milliliter(s) IM monthly No Start Date 01/16/2018 Inactive hydrocodone 5 mg-linh taminophen 325 mg tablet RxNorm: 930120 1 Tablet(s) PO Q8 as needed No Start Date 12/08/2014 Inactive metformin 500 mg tablet RxNorm: 210407 1 Tablet(s) PO daily No Start Date 04/24/2015 Inactive omeprazole 20 mg cap jacquelyn,delayed release RxNorm: 793358 1 Capsule(s) PO daily No Start Date 10/05/2015 Inactive Flomax 0.4 mg capsule RxNorm: 494257 1 Capsule(s) PO daily No Start Date 03/23/2015 Inactive Medication Administered Medication Codes Instruc tions Start Date Status testosterone cypionate 200 mg/mL intramuscular oil RxNorm: 788719 Milliliter 06/13/2018 No longer Active testosterone cypionate 200 mg/mL intramuscular oil RxNorm: 797984 Milliliter 06/05/2018 No longer Active testosterone cypionate 200 mg/mL intramuscular oil RxNorm: 399040 Milliliter 05/30/2018 No longer Active testosterone cypionate 200 mg/mL intramuscular oil RxNorm: 253498 Milliliter 05/22/2018 No longer Active testosterone cypionate 200 mg/mL intramuscular oil RxNorm: 124827 1/2Milliliter 05/12/2018 No longer Active testosterone cypionate 200 mg/mL intramuscular oil RxNorm: 489040 Milliliter 05/02/2018 No longer Active testosterone cypionate 200 mg/mL intramuscular oil RxNorm: 661415 0.5Milliliter 04/24/2018 No longer Active testosterone cypionate 200 mg/mL intramuscular oil RxNorm: 835517 1/2Milliliter 04/17/2018 No longer Active ketorolac 60 mg/2 mL intramuscular solution RxNorm: 8260721 Milliliter 03/07/2018 No longer Active Kenalog 40 mg/mL suspension for injection RxNorm: 0154753 1.5Milliliter 01/30/2018 No longer Active testosterone cypionate 200 mg/mL intramuscular oil RxNorm: 477992 Milliliter 01/17/2018 No longer Active Kenalog 40 mg/mL suspension for injection RxNorm: 6510774 Milliliter 04/12/2015 No longer Active Kenalog 40 mg/mL suspension for injection RxNorm: 9786934 Milliliter 12/23/2014 No longer Active Immunizations Vaccine Codes Date Status Influenza CVX: 141 06/06 completed Influenza CVX: 141 04/25 completed Pneumococcal (Adult) CVX: 133 04/25/2017 completed Influenza CVX: 141 05/22 completed Assessments Condition Codes Effectiv e Dates Testicular dysfunction, unspecified ICD-10: E29.9 ICD-9: 257.9 06/13/2018 Type 2 diabetes mellitus without complications ICD-10: [...] Item Item Code Result Date Comp Metabolic Tkf680 NA 139 mEq/L 04/01/2018 Comp Metabolic Pzx872 K 4.2 mEq/L 04/01/2018 Comp Metabolic Plm835 CL 102 mEq/L 04/01/2018 Comp Metabolic Asb189 CO2 29.0 mEq/L 04/01/2018 Comp Metabolic Psb182 AN ION GAP 12 04/01/2018 Comp Metabolic Ayk071 GL UCOSE 87 mg/dL 04/01/2018 Comp Metabolic Ypp497 Cr eat 1.1 mg/dL 04/01/2018 Comp Metabolic Uwl406 eG FR 70 ml/min/1.73m2 04/01 Comp Metabolic Lfs143 BUN 21 mg/dL 04/01/2018 Comp Metabolic Soh948 B/ C Ratio 19.4 Ratio 04/01/2018 Comp Metabolic Vpy789 CA LCIUM 9.1 mg/dL 04/01/2018 Comp Metabolic Zpt450 AL K PHOS 60 U/L 04/01/2018 Comp Metabolic Ikw158 T(SGOT) 15 U/L 04/01/2018 Comp Metabolic Dwg580 AL T(SGPT) 18 U/L 04/01/2018 Comp Metabolic Mld752 BI LI T 0.4 mg/dL 04/01/2018 Comp Metabolic Vux082 AL BUMIN 4.0 g/dL 04/01/2018 Comp Metabolic Mvt742 TP RO 6.5 g/dL 04/01/2018 Comp Metabolic Vzz441 GL OB 2.5 g/dL 04/01/2018 Comp Metabolic Fld079 A/ G Ratio 1.6 Ratio 04/01/2018 Comp Metabolic Mal731 Os mo 280 mOsmo 04/01/2018 Lipid Ord30 [...] 101.6 fl 04/01/2018 Cbc With Differential Ord2 Bryan% 6.0 % 04/01/2018 Cbc With Differential Ord2 [...] 3.25 K/ul 04/01/2018 Cbc With Differential Ord2 Bryan ABS# 0.6 K/ul 04/01/2018 Cbc With Differential Ord2 Eos ABS# 0.4 K/ul 04/01/2018 Cbc With Differential Ord2 Baso ABS# 0.0 K/ul 04/01/2018 %Hba1C Wil441 % HbA1c 12556-9 8.0 % 04/01/2018 %Hba1C Xpb897 Gluc Ave 183 mg/dL 04/01/2018 Testosterone Ife551 Testo 111.3 ng/dL 04/01/2018 Testosterone Rzb256 Testo 135.4 ng/dL 01/14/2018 Cbc With Differential [...] 36.0 pg 01/14/2018 Cbc With Differential Ord2 Bryan% 6.8 % 01/14/2018 Cbc With Differential Ord2 [...] 2.71 K/ul 01/14/2018 Cbc With Differential Ord2 Bryan ABS# 0.8 K/ul 01/14/2018 Cbc With Differential Ord2 Eos ABS# 0.2 K/ul 01/14/2018 Cbc With Differential Ord2 Baso ABS# 0.0 K/ul 01/14/2018 Comp Metabolic Fax272 NA 134 mEq/L 11/20/2017 Comp Metabolic Hpu279 K 4.4 mEq/L 11/20/2017 Comp Metabolic Cla874 CL 99 mEq/L 11/20/2017 Comp Metabolic Ilc762 CO2 29.0 mEq/L 11/20/2017 Comp Metabolic Rxl016 AN ION GAP 10 11/20/2017 Comp Metabolic Tfv172 GL UCOSE 218 mg/dL 11/20/2017 Comp Metabolic Nmn966 Cr eat 1.0 mg/dL 11/20/2017 Comp Metabolic Qqr845 eG FR 78 ml/min/1.73m2 11/20 Comp Metabolic Lfb862 BUN 13 mg/dL 11/20/2017 Comp Metabolic Xof600 B/ C Ratio 13.3 Ratio 11/20/2017 Comp Metabolic Jef553 CA LCIUM 9.0 mg/dL 11/20/2017 Comp Metabolic Pho130 AL K PHOS 71 U/L 11/20/2017 Comp Metabolic Mvy082 T(SGOT) 18 U/L 11/20/2017 Comp Metabolic Mhp731 AL T(SGPT) 17 U/L 11/20/2017 Comp Metabolic Ayt879 BI LI T 0.4 mg/dL 11/20/2017 Comp Metabolic Nqd938 AL BUMIN 4.1 g/dL 11/20/2017 Comp Metabolic Vbd729 TP RO 6.5 g/dL 11/20/2017 Comp Metabolic Uxn047 GL OB 2.4 g/dL 11/20/2017 Comp Metabolic Zde076 A/ G Ratio 1.8 Ratio 11/20/2017 Comp Metabolic Yow852 Os mo 275 mOsmo 11/20/2017 Cbc With [...] 35.2 pg 11/20/2017 Cbc With Differential Ord2 Bryan% 7.2 % 11/20/2017 Cbc With Differential Ord2 [...] 3.34 K/ul 11/20/2017 Cbc With Differential Ord2 Bryan ABS# 0.6 K/ul 11/20/2017 Cbc With Differential Ord2 Eos ABS# 0.3 K/ul 11/20/2017 Cbc With Differential Ord2 Baso ABS# 0.0 K/ul 11/20/2017 Vitamin D 25 Oh Cog0698 VITAMIN D, 25 HYDROXY 43.72 ng/mL 11/20/2017 %Hba1C Jwr758 % HbA1c 07198-6 7.4 % 11/20/2017 %Hba1C Ejo213 Gluc Ave 166 mg/dL 11/20/2017 %Hba1C Rab629 % HbA1c 43093-8 7.2 % 08/20/2017 %Hba1C Nhx188 Gluc Ave 160 mg/dL 08/20/2017 Lipid Ord30 [...] 34.7 pg 08/20/2017 Cbc With Differential Ord2 Bryan% 7.6 % 08/20/2017 Cbc With Differential Ord2 [...] 2.42 K/ul 08/20/2017 Cbc With Differential Ord2 Bryan ABS# 0.6 K/ul 08/20/2017 Cbc With Differential Ord2 Eos ABS# 0.3 K/ul 08/20/2017 Cbc With Differential Ord2 Baso ABS# 0.0 K/ul 08/20/2017 Tsh Ord6 hTSH II 2.27 uIU/mL 08/20/2017 Comp Metabolic [id number] NA 138 mEq/L 08/20/2017 Comp Metabolic Xbw584 K 4.3 mEq/L 08/20/2017 Comp Metabolic Kht489 CL 102 mEq/L 08/20/2017 Comp Metabolic Skh871 CO2 29.0 mEq/L 08/20/2017 Comp Metabolic Hty787 AN ION GAP 11 08/20/2017 Comp Metabolic Ytn689 GL UCOSE 89 mg/dL 08/20/2017 Comp Metabolic Xqf943 Cr eat 1.0 mg/dL 08/20/2017 Comp Metabolic Dim887 eG FR 80 ml/min/1.73m2 08/20 Comp Metabolic Joq908 BUN 13 mg/dL 08/20/2017 Comp Metabolic Zqm870 B/ C Ratio 13.5 Ratio 08/20/2017 Comp Metabolic Czc077 CA LCIUM 9.2 mg/dL 08/20/2017 Comp Metabolic Amr346 AL K PHOS 69 U/L 08/20/2017 Comp Metabolic Spr267 T(SGOT) 18 U/L 08/20/2017 Comp Metabolic Ggl513 AL T(SGPT) 19 U/L 08/20/2017 Comp Metabolic Dbf186 BI LI T 0.6 mg/dL 08/20/2017 Comp Metabolic Efh289 AL BUMIN 4.0 g/dL 08/20/2017 Comp Metabolic Kfs896 TP RO 6.6 g/dL 08/20/2017 Comp Metabolic Ntr229 GL OB 2.6 g/dL 08/20/2017 Comp Metabolic Ewd036 A/ G Ratio 1.5 Ratio 08/20/2017 Comp Metabolic Ahp455 Os mo 275 mOsmo 08/20/2017 Vitamin D 25 Oh Ixc4351 VITAMIN D, 25 HYDROXY 30.96 ng/mL 08/20/2017 B12 Tby167 B12 >1500.00 pg/ml 02/22/2017 Cbc With Differential [...] 35.7 pg 02/20/2017 Cbc With Differential Ord2 Bryan% 6.3 % 02/20/2017 Cbc With Differential Ord2 [...] 3.19 K/ul 02/20/2017 Cbc With Differential Ord2 Bryan ABS# 0.5 K/ul 02/20/2017 Cbc With Differential Ord2 Eos ABS# 0.4 K/ul 02/20/2017 Cbc With Differential Ord2 Baso ABS# 0.0 K/ul 02/20/2017 Comp Metabolic Khc866 NA 138 mEq/L 02/20/2017 Comp Metabolic Fej604 K 4.5 mEq/L 02/20/2017 Comp Metabolic Adw623 CL 101 mEq/L 02/20/2017 Comp Metabolic Jir299 CO2 31.0 mEq/L 02/20/2017 Comp Metabolic Rrx866 AN ION GAP 11 02/20/2017 Comp Metabolic Xam987 GL UCOSE 120 mg/dL 02/20/2017 Comp Metabolic Rue154 Cr eat 0.9 mg/dL 02/20/2017 Comp Metabolic Rxw811 eG FR 83 ml/min/1.73m2 02/20 Comp Metabolic Axi711 BUN 15 mg/dL 02/20/2017 Comp Metabolic Sui660 B/ C Ratio 16.1 Ratio 02/20/2017 Comp Metabolic Yan820 CA LCIUM 9.1 mg/dL 02/20/2017 Comp Metabolic Gai450 AL K PHOS 67 U/L 02/20/2017 Comp Metabolic Ade302 T(SGOT) 15 U/L 02/20/2017 Comp Metabolic Tss773 AL T(SGPT) 16 U/L 02/20/2017 Comp Metabolic Iyl873 BI LI T 0.5 mg/dL 02/20/2017 Comp Metabolic Rva702 AL BUMIN 4.0 g/dL 02/20/2017 Comp Metabolic Jlr291 TP RO 6.4 g/dL 02/20/2017 Comp Metabolic Esd585 GL OB 2.4 g/dL 02/20/2017 Comp Metabolic Xoy879 A/ G Ratio 1.7 Ratio 02/20/2017 Comp Metabolic Sfb507 Os mo 278 mOsmo 02/20/2017 Tsh Ord6 hTSH II 2.05 uIU/mL 02/20/2017 %Hba1C Zea584 % HbA1c 98375-4 7.6 % 02/20/2017 %Hba1C Kqn574 Gluc Ave 171 mg/dL 02/20/2017 Vitamin D 25 Oh Lqj6919 VITAMIN D, 25 HYDROXY 44.40 ng/mL 12/21/2016 Comp Metabolic Zqi356 NA 131 mEq/L 12/21/2016 Comp Metabolic Pzu677 K 4.2 mEq/L 12/21/2016 Comp Metabolic Nzi731 CL 97 mEq/L 12/21/2016 Comp Metabolic Inl931 CO2 27.0 mEq/L 12/21/2016 Comp Metabolic Pik832 AN ION GAP 11 12/21/2016 Comp Metabolic Hzb059 GL UCOSE 266 mg/dL 12/21/2016 Comp Metabolic Iza100 Cr eat 0.9 mg/dL 12/21/2016 Comp Metabolic Fzf111 eG FR 88 ml/min/1.73m2 12/21 Comp Metabolic Jiv562 BUN 12 mg/dL 12/21/2016 Comp Metabolic Hnp206 B/ C Ratio 13.6 Ratio 12/21/2016 Comp Metabolic Nbb841 CA LCIUM 8.6 mg/dL 12/21/2016 Comp Metabolic Thj233 AL K PHOS 69 U/L 12/21/2016 Comp Metabolic Hrr068 T(SGOT) 15 U/L 12/21/2016 Comp Metabolic Gju949 AL T(SGPT) 14 U/L 12/21/2016 Comp Metabolic Jie198 BI LI T 0.3 mg/dL 12/21/2016 Comp Metabolic Tju331 AL BUMIN 3.7 g/dL 12/21/2016 Comp Metabolic Iqc995 TP RO 5.9 g/dL 12/21/2016 Comp Metabolic Iui372 GL OB 2.2 g/dL 12/21/2016 Comp Metabolic Tzs894 A/ G Ratio 1.7 Ratio 12/21/2016 Comp Metabolic Oft262 Os mo 272 mOsmo 12/21/2016 Cbc With [...] 100.9 fl 12/21/2016 Cbc With Differential Ord2 Bryan% 6.9 % 12/21/2016 Cbc With Differential Ord2 [...] 2.05 K/ul 12/21/2016 Cbc With Differential Ord2 Bryan ABS# 0.4 K/ul 12/21/2016 Cbc With Differential Ord2 Eos ABS# 0.2 K/ul 12/21/2016 Cbc With Differential Ord2 Baso ABS# 0.0 K/ul 12/21/2016 Comp Metabolic Joh553 NA 138 mEq/L 09/03/2016 Comp Metabolic Xda221 K 4.5 mEq/L 09/03/2016 Comp Metabolic Pso430 CL 102 mEq/L 09/03/2016 Comp Metabolic Cdv781 CO2 30.0 mEq/L 09/03/2016 Comp Metabolic Bve445 AN ION GAP 11 09/03/2016 Comp Metabolic Ogn010 GL UCOSE 113 mg/dL 09/03/2016 Comp Metabolic Foj436 Cr eat 1.0 mg/dL 09/03/2016 Comp Metabolic Fxe323 eG FR 81 ml/min/1.73m2 09/03 Comp Metabolic Pww913 BUN 10 mg/dL 09/03/2016 Comp Metabolic Rik145 B/ C Ratio 10.5 Ratio 09/03/2016 Comp Metabolic Lhh199 CA LCIUM 9.1 mg/dL 09/03/2016 Comp Metabolic Hel184 AL K PHOS 71 U/L 09/03/2016 Comp Metabolic Rbg808 T(SGOT) 18 U/L 09/03/2016 Comp Metabolic Dqe035 AL T(SGPT) 17 U/L 09/03/2016 Comp Metabolic Hlt078 BI LI T 0.6 mg/dL 09/03/2016 Comp Metabolic Hbv472 AL BUMIN 4.1 g/dL 09/03/2016 Comp Metabolic Aeg791 TP RO 6.4 g/dL 09/03/2016 Comp Metabolic Eah840 GL OB 2.3 g/dL 09/03/2016 Comp Metabolic Xrn968 A/ G Ratio 1.8 Ratio 09/03/2016 Comp Metabolic Vct834 Os mo 276 mOsmo 09/03/2016 Vitamin D 25 Oh Kux2674 VITAMIN D, 25 HYDROXY 28.23 ng/mL 09/03/2016 [...] 101.9 fl 09/03/2016 Cbc With Differential Ord2 Bryan% 8.9 % 09/03/2016 Cbc With Differential Ord2 [...] 3.34 K/ul 09/03/2016 Cbc With Differential Ord2 Bryan ABS# 0.7 K/ul 09/03/2016 Cbc With Differential Ord2 Eos ABS# 0.4 K/ul 09/03/2016 Cbc With Differential Ord2 Baso ABS# 0.0 K/ul 09/03/2016 Lipid Ord30 CHOL 120 mg/dL 09/03/2016 Lipid Ord30 HDL 33.0 mg/dl 09/03/2016 Lipid Ord30 TRIG 161 mg/dL 09/03/2016 Lipid Ord30 LDL 55 mg/dL 09/03/2016 Lipid Ord30 C/HDL 3.6 Ratio 09/03/2016 %Hba1C Pdg957 % HbA1c 59799-1 7.5 % 09/03/2016 %Hba1C Gkg185 Gluc Ave 169 mg/dL 09/03/2016 Tsh Ord6 hTSH II 1.50 uIU/mL 05/23/2016 %Hba1C Ial446 % HbA1c 43357-0 7.6 % 05/23/2016 %Hba1C Wxh589 Gluc Ave 171 mg/dL 05/23/2016 Comp Metabolic Nwz553 NA 135 mEq/L 05/23/2016 Comp Metabolic Kdy751 K 4.4 mEq/L 05/23/2016 Comp Metabolic Blt796 CL 99 mEq/L 05/23/2016 Comp Metabolic Mil962 CO2 28.0 mEq/L 05/23/2016 Comp Metabolic Xdy099 AN ION GAP 12 05/23/2016 Comp Metabolic Pwe812 GL UCOSE 257 mg/dL 05/23/2016 Comp Metabolic Ild781 Cr eat 0.8 mg/dL 05/23/2016 Comp Metabolic Uxk837 eG FR 95 ml/min/1.73m2 05/23 Comp Metabolic Kvm403 BUN 11 mg/dL 05/23/2016 Comp Metabolic Nzf710 B/ C Ratio 13.3 Ratio 05/23/2016 Comp Metabolic Wea723 CA LCIUM 9.0 mg/dL 05/23/2016 Comp Metabolic Ytq519 AL K PHOS 82 U/L 05/23/2016 Comp Metabolic Plp465 T(SGOT) 21 U/L 05/23/2016 Comp Metabolic Bux664 AL T(SGPT) 20 U/L 05/23/2016 Comp Metabolic Abo364 BI LI T 0.3 mg/dL 05/23/2016 Comp Metabolic Nrp613 AL BUMIN 4.0 g/dL 05/23/2016 Comp Metabolic Lje041 TP RO 6.4 g/dL 05/23/2016 Comp Metabolic Ksb754 GL OB 2.4 g/dL 05/23/2016 Comp Metabolic Yqo946 A/ G Ratio 1.6 Ratio 05/23/2016 Comp Metabolic Whl335 Os mo 278 mOsmo 05/23/2016 Cbc With [...] 34.5 pg 05/23/2016 Cbc With Differential Ord2 Bryan% 6.1 % 05/23/2016 Cbc With Differential Ord2 [...] 2.38 K/ul 05/23/2016 Cbc With Differential Ord2 Bryan ABS# 0.4 K/ul 05/23/2016 Cbc With Differential Ord2 Eos ABS# 0.2 K/ul 05/23/2016 Cbc With Differential Ord2 Baso ABS# 0.0 K/ul 05/23/2016 B12 Zic561 B12 597.00 pg/ml 05/23/2016 Metabolic Ord15 NA [...] 0.92 uIU/mL 07/29/2015 Vitamin D 25 Oh Mdc2305 VITAMIN D, 25 HYDROXY 26.93 ng/mL 07/29/2015 %Hba1C Zsq480 % HbA1c 38903-8 8.8 % 07/29/2015 %Hba1C Tez187 Gluc Ave 206 mg/dL 07/29/2015 Cbc With [...] Ord2 RDW 14.9 % 07/29/2015 Comp Metabolic Zuq635 NA 138 mEq/L 07/29/2015 Comp Metabolic Drt849 K 4.4 mEq/L 07/29/2015 Comp Metabolic Qek896 CL 102 mEq/L 07/29/2015 Comp Metabolic Ysw531 CO2 28.0 mEq/L 07/29/2015 Comp Metabolic Nau907 AN ION GAP 12 07/29/2015 Comp Metabolic Fto950 GL UCOSE 261 mg/dL 07/29/2015 Comp Metabolic Ycz812 Cr eat 1.0 mg/dL 07/29/2015 Comp Metabolic Awj549 eG FR 77 ml/min/1.73m2 07/29 Comp Metabolic Inr634 BUN 13 mg/dL 07/29/2015 Comp Metabolic Zet838 B/ C Ratio 13.0 Ratio 07/29/2015 Comp Metabolic Yzg652 CA LCIUM 9.1 mg/dL 07/29/2015 Comp Metabolic Iac274 AL K PHOS 64 U/L 07/29/2015 Comp Metabolic Fkf904 T(SGOT) 20 U/L 07/29/2015 Comp Metabolic Rwj656 AL T(SGPT) 22 U/L 07/29/2015 Comp Metabolic Lpn796 BI LI T 0.4 mg/dL 07/29/2015 Comp Metabolic Mlv811 AL BUMIN 4.0 g/dL 07/29/2015 Comp Metabolic Mgp220 TP RO 6.1 g/dL 07/29/2015 Comp Metabolic Tnj508 GL OB 2.1 g/dL 07/29/2015 Comp Metabolic Ber465 A/ G Ratio 1.9 Ratio 07/29/2015 Comp Metabolic Vwe221 Os mo 285 mOsmo 07/29/2015 Cbc With [...] Ord2 RDW 13.1 % 05/06/2015 Comp Metabolic Cau933 NA 134 mEq/L 05/06/2015 Comp Metabolic Fno994 K 4.4 mEq/L 05/06/2015 Comp Metabolic Bmv099 CL 98 mEq/L 05/06/2015 Comp Metabolic Coq732 CO2 29.0 mEq/L 05/06/2015 Comp Metabolic Ncq810 AN ION GAP 11 05/06/2015 Comp Metabolic Ovx928 GL UCOSE 321 mg/dL 05/06/2015 Comp Metabolic Fmd074 Cr eat 1.0 mg/dL 05/06/2015 Comp Metabolic Exu325 eG FR 78 ml/min/1.73m2 05/06 Comp Metabolic Adk095 BUN 20 mg/dL 05/06/2015 Comp Metabolic Muo732 B/ C Ratio 20.4 Ratio 05/06/2015 Comp Metabolic Oce676 CA LCIUM 9.5 mg/dL 05/06/2015 Comp Metabolic Lgd804 AL K PHOS 62 U/L 05/06/2015 Comp Metabolic Jok928 T(SGOT) 21 U/L 05/06/2015 Comp Metabolic Tme138 AL T(SGPT) 37 U/L 05/06/2015 Comp Metabolic Ssa115 BI LI T 0.4 mg/dL 05/06/2015 Comp Metabolic Qrs286 AL BUMIN 3.8 g/dL 05/06/2015 Comp Metabolic Izj991 TP RO 6.1 g/dL 05/06/2015 Comp Metabolic Pmt312 GL OB 2.3 g/dL 05/06/2015 Comp Metabolic Mqm681 A/ G Ratio 1.7 Ratio 05/06/2015 Comp Metabolic Fik753 Os mo 283 mOsmo 05/06/2015 Tsh Ord6 hTSH II 1.65 uIU/mL 02/18/2015 B12 Eap226 B12 605.00 pg/ml 02/18/2015 %Hba1C Eqq653 % HbA1c 30202-2 8.3 % 02/18/2015 %Hba1C Zit367 Gluc Ave 192 mg/dL 02/18/2015 Cbc With [...] Ord2 RDW 13.9 % 02/17/2015 Comp Metabolic Zsi062 NA 137 mEq/L 02/17/2015 Comp Metabolic Acm079 K 4.4 mEq/L 02/17/2015 Comp Metabolic Amo890 CL 100 mEq/L 02/17/2015 Comp Metabolic Qxs041 CO2 31.0 mEq/L 02/17/2015 Comp Metabolic Hpy144 AN ION GAP 10 02/17/2015 Comp Metabolic Gvz070 GL UCOSE 307 mg/dL 02/17/2015 Comp Metabolic Dtw491 Cr eat 1.0 mg/dL 02/17/2015 Comp Metabolic Ffo071 eG FR 74 ml/min/1.73m2 02/17 Comp Metabolic Vtm787 BUN 22 mg/dL 02/17/2015 Comp Metabolic Jsn622 B/ C Ratio 21.4 Ratio 02/17/2015 Comp Metabolic Wsw028 CA LCIUM 9.5 mg/dL 02/17/2015 Comp Metabolic Yjr412 AL K PHOS 78 U/L 02/17/2015 Comp Metabolic Xsd265 T(SGOT) 18 U/L 02/17/2015 Comp Metabolic Ozp705 AL T(SGPT) 32 U/L 02/17/2015 Comp Metabolic Try848 BI LI T 0.5 mg/dL 02/17/2015 Comp Metabolic Hvm659 AL BUMIN 4.3 g/dL 02/17/2015 Comp Metabolic Zbb539 TP RO 6.7 g/dL 02/17/2015 Comp Metabolic Apu746 GL OB 2.4 g/dL 02/17/2015 Comp Metabolic Mtf657 A/ G Ratio 1.8 Ratio 02/17/2015 Comp Metabolic Ulv334 Os mo 289 mOsmo 02/17/2015 Review of [...] diminished 07/23/2017 None Full Exam - General 1994 [...] Procedure Codes Date THER/PROPH/DIAG INJ SC/IM CPT-4: 51936 06/13/2018 ADMIN INFLUENZA VIRU S VAC CPT-4: G0008 06/06/2018 FLU VACC PRSV FREE I NC ANTIG CPT-4: 50137 06/06/2018 THER/PROPH/DIAG INJ SC/IM CPT-4: 44913 06/05/2018 THER/PROPH/DIAG INJ SC/IM CPT-4: 62261 05/30/2018 THER/PROPH/DIAG INJ SC/IM CPT-4: 47408 05/22/2018 THER/PROPH/DIAG INJ SC/IM CPT-4: 47910 05/12/2018 THER/PROPH/DIAG INJ SC/IM CPT-4: 86620 05/02/2018 THER/PROPH/DIAG INJ SC/IM CPT-4: 54146 04/24/2018 THER/PROPH/DIAG INJ SC/IM CPT-4: 40702 04/17/2018 KETOROLAC TROMETHAMI NE INJ CPT-4: J1885 03/07/2018 URINALYSIS NONAUTO W /O SCOPE CPT-4: 20903 03/07/2018 THER/PROPH/DIAG INJ SC/IM CPT-4: 71252 02/20/2018 TRIAMCINOLONE ACET I [place] NOS CPT-4: J3301 01/30/2018 THER/PROPH/DIAG INJ SC/IM CPT-4: 24189 01/17/2018 TOBACCO-USE RN PALLIATIVE CARE 3-[address]: 501911424 CPT-4: G0436 04/25/2017 ADMIN INFLUENZA VIRU S VAC CPT-4: G0008 04/25/2017 ADMIN PNEUMOCOCCAL V ACCINE SNOMED CT: 71554211 CPT-4: G0009 04/25/2017 PNEUMOCOCCAL VACC [address]: 61332203 CPT-4: 55426 04/25/2017 FLU VACC PRSV FREE I NC ANTIG CPT-4: 15266 04/25/2017 ADMIN INFLUENZA VIRU S VAC CPT-4: G0008 05/22/2016 FLU VACC 4 TELLY 3 YRS PLUS IM Formatting Model/CDA Sections, Assigned to/Angela Clemons SNOMED CT: 31563484 CPT-4: 05045Nrikcim 05/22/2016 TOBACCO-USE RN PALLIATIVE CARE 3-[address]: 610905784 CPT-4: G0436 11/25/2015 URINALYSIS NONAUTO W /O SCOPE CPT-4: 36088 05/09/2015 TRIAMCINOLONE ACET I [place] NOS CPT-4: J3301 04/12/2015 DESTRUCT PREMALG LESION CPT-4: 79684 03/07/2015 DESTRUCT PREMALG LES 2-14 CPT-4: 83325 03/07/2015 REMOVE IMPACTED EAR WAX UNI CPT-4: 06697 12/31/2014 THER/PROPH/DIAG INJ SC/IM CPT-4: 96520 12/23/2014 TRIAMCINOLONE ACET I [place] NOS CPT-4: J3301 12/23/2014 Vital Signs Date Vital 06/06/2018 Blood Pressure 1: 128/76 Code: 8480-6 BMI: 22.0 Code: 84543-5 Heart Rate 1: 81 bpm Height: 5'11" SpO2: 92% Weight: 158 lbs 04/04/2018 Blood Pressure 1: 124/70 Code: 8480-6 BMI: 20.8 Code: 04764-6 Heart Rate 1: 65 bpm Height: 5'11" SpO2: 95% Weight: 149 lbs 03/07/2018 Blood Pressure 1: 148/70 Code: 8480-6 BMI: 21.2 Code: 67321-3 Heart Rate 1: 66 bpm Height: 5'11" SpO2: 94% Weight: 152 lbs 02/20/2018 Blood Pressure 1: 134/58 Code: 8480-6 BMI: 20.5 Code: 97070-7 Heart Rate 1: 61 bpm Height: 5'11" SpO2: 92% Weight: 147 lbs 01/30/2018 Blood Pressure 1: 158/68 Code: 8480-6 BMI: 21.5 Code: 79656-8 Heart Rate 1: 71 bpm Height: 5'11" SpO2: 92% Weight: 154 lbs 01/14/2018 Blood Pressure 1: 156/70 Code: 8480-6 Height: Weight: 01/13/2018 Blood Pressure 1: 148/62 Code: 8480-6 BMI: 20.9 Code: 90291-5 Heart Rate 1: 54 bpm Height: 5'11" SpO2: 97% Weight: 150 lbs 11/19/2017 Blood Pressure 1: 150/60 Code: 8480-6 BMI: 21.8 Code: 91047-1 Heart Rate 1: 63 bpm Height: 5'11" SpO2: 98% Weight: 156 lbs 10/02/2017 Blood Pressure 1: 168/60 Code: 8480-6 BMI: 21.9 Code: 29508-2 Heart Rate 1: 52 bpm Height: 5'11" SpO2: 97% Weight: 157 lbs 07/23/2017 Blood Pressure 1: 170/70 Code: 8480-6 BMI: 21.8 Code: 11888-1 Heart Rate 1: 65 bpm Height: 5'11" SpO2: 98% Weight: 156 lbs 04/25/2017 Blood Pressure 1: 138/60 Code: 8480-6 BMI: 21.6 Code: 15303-7 Heart Rate 1: 55 bpm Height: 5'11" SpO2: 93% Weight: 155 lbs 02/19/2017 Blood Pressure 1: 138/64 Code: 8480-6 BMI: 21.3 Code: 19733-0 Heart Rate 1: 52 bpm Height: 5'11" SpO2: 96% Weight: 152 lbs 8 oz 01/21/2017 Blood Pressure 1: 160/68 Code: 8480-6 BMI: 21.3 Code: 07516-0 Heart Rate 1: 62 bpm Height: 5'11" SpO2: 96% Weight: 153 lbs 12/20/2016 Blood Pressure 1: 124/66 Code: 8480-6 BMI: 21.5 Code: 30737-2 Height: 5'11" Weight: 154 lbs 08/23/2016 Blood Pressure 1: 142/52 Code: 8480-6 BMI: 21.2 Code: 99164-2 Heart Rate 1: 54 bpm Height: 5'11" SpO2: 96% Weight: 152 lbs 05/22/2016 Blood Pressure 1: 130/76 Code: 8480-6 BMI: 21.5 Code: 13488-1 Heart Rate 1: 78 bpm Height: 5'11" SpO2: 92% Weight: 154 lbs 02/24/2016 Blood Pressure 1: 128/80 Code: 8480-6 BMI: 21.2 Code: 49255-8 Heart Rate 1: 74 bpm Height: 5'11" SpO2: 96% Weight: 152 lbs 01/27/2016 Blood Pressure 1: 144/60 Code: 8480-6 BMI: 21.2 Code: 02073-9 Heart Rate 1: 74 bpm Height: 5'11" SpO2: 97% Weight: 152 lbs 11/25/2015 Blood Pressure 1: 110/52 Code: 8480-6 BMI: 21.9 Code: 85771-4 Heart Rate 1: 65 bpm Height: 5'11" SpO2: 92% Weight: 157 lbs 07/28/2015 Blood Pressure 1: 138/62 Code: 8480-6 BMI: 21.8 Code: 40075-7 Heart Rate 1: 63 bpm Height: 5'11" SpO2: 91% Weight: 156 lbs 05/26/2015 Blood Pressure 1: 120/58 Code: 8480-6 BMI: 21.5 Code: 82541-1 Heart Rate 1: 99 bpm Height: 5'11" SpO2: 96% Weight: 154 lbs 05/06/2015 Blood Pressure 1: 120/58 Code: 8480-6 BMI: 21.2 Code: 51652-6 Heart Rate 1: 66 bpm Height: 5'11" SpO2: 96% Weight: 152 lbs 04/25/2015 Blood Pressure 1: 136/62 Code: 8480-6 BMI: 21.2 Code: 09593-5 Heart Rate 1: 63 bpm Height: 5'11" SpO2: 97% Weight: 152 lbs 04/12/2015 Blood Pressure 1: 160/58 Code: 8480-6 BMI: 21.6 Code: 82422-0 Heart Rate 1: 62 bpm Height: 5'11" Weight: 155 lbs 03/24/2015 Blood Pressure 1: 138/68 Code: 8480-6 BMI: 22.0 Code: 08791-2 Heart Rate 1: 65 bpm Height: 5'11" SpO2: 96% Weight: 158 lbs 03/07/2015 Blood Pressure 1: 116/52 Code: 8480-6 BMI: 22.2 Code: 48408-4 Heart Rate 1: 64 bpm Height: 5'11" SpO2: 97% Weight: 159 lbs 02/17/2015 Blood Pressure 1: 148/58 Code: 8480-6 BMI: 21.3 Code: 50284-7 Heart Rate 1: 63 bpm Height: 5'11" SpO2: 97% Weight: 153 lbs 12/31/2014 Blood Pressure 1: 100/60 Code: 8480-6 BMI: 21.8 Code: 49038-7 Heart Rate 1: 68 bpm Height: 5'11" Weight: 156 lbs 12/23/2014 Blood Pressure 1: 148/64 Code: 8480-6 BMI: 21.9 Code: 10561-6 Heart Rate 1: 64 bpm Height: 5'11" [...] Encounters Encounter Performer Loca tion Codes Date ([id number]) [id number] EST. P ATIENT, LEVEL IV Diagnosis: Cellulitis of face[ICD10: L03.211] Diagnosis: Type 2 diabetes mellitus without complications[ICD10: E11.9] Diagnosis: Essential (primary) hypertension[ICD10: I10] Diagnosis: Encounter for immunization[ICD10: Z23] Karmen Ash MD, [facility] CPT-4: 25235 06/06/2018 ([id number]) 86233 EST. 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 P ATIENT, LEVEL III Diagnosis: Low back pain[ICD10: M54.5] Diagnosis: Dysuria[ICD10: R30.0] Karmen Ash MD, [facility] CPT-4: 93787 03/07/2018 ([id number]) 25718 EST. 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 P ATIENT, LEVEL III Diagnosis: Chronic obstructive pulmonary disease with (acute) exacerbation[ICD10: J44.1] Karemn Ash MD, [facility] CPT-4: 87581 01/30/2018 [id number] EST. PATIENT, LEVEL II Diagnosis: Insect bite (nonvenomous), left lower leg, initial encounter[ICD10: S80.862A] Karmen Ash MD, [facility] CPT-4: 72361 01/14/2018 ([id number]) 52593 EST. P ATIENT, LEVEL IV Diagnosis: Type 2 diabetes mellitus with hyperglycemia[ICD10: E11.65] Diagnosis: Chronic obstructive pulmonary disease, unspecified[ICD10: J44.9] Diagnosis: Other fatigue[ICD10: R53.83] Karmen Ash MD, [facility] CPT- 4: 34444 01/13/2018 ([id number]) 32261 EST. P ATIENT, LEVEL IV Diagnosis: Type 2 diabetes mellitus with hyperglycemia[ICD10: E11.65] Diagnosis: Vitamin D deficiency, unspecified[ICD10: E55.9] Diagnosis: Essential (primary) hypertension[ICD10: I10] Diagnosis: Abdominal distension (gaseous)[ICD10: R14.0] Diagnosis: Drug induced constipation[ICD10: K59.03] Karmen Ash MD, [facility] CPT-4: 98077 11/19/2017 03999 EST. PATIENT, LEVEL IV Diagnosis: Low back pain[ICD10: M54.5] Diagnosis: Chronic obstructive pulmonary disease, unspecified[ICD10: J44.9] Brunilda Ash MD, [facility] CPT-4: 77115 10/02/2017 ([id number]) 15946 EST. P ATIENT, LEVEL IV Diagnosis: Essential (primary) hypertension[ICD10: I10] Diagnosis: Type 2 diabetes mellitus with hyperglycemia[ICD10: E11.65] Diagnosis: Vitamin D deficiency, unspecified[ICD10: E55.9] Diagnosis: Mixed hyperlipidemia[ICD10: E78.2] Karmen Ash MD, [facility] CPT-4: 51900 07/23/2017 ([id number]) 78551 EST. P ATIENT, LEVEL IV Diagnosis: Essential (primary) hypertension[ICD10: I10] Diagnosis: Type 2 diabetes mellitus with hyperglycemia[ICD10: E11.65] Diagnosis: Chronic obstructive pulmonary disease, unspecified[ICD10: J44.9] Diagnosis: Nicotine dependence, unspecified, uncomplicated[ICD10: F17.200] Diagnosis: Encounter for immunization[ICD10: Z23] Karmen Ash MD, [facility] CPT-4: 28765 04/25/2017 ([id number]) 26415 EST. P ATIENT, LEVEL IV Diagnosis: Type 2 diabetes mellitus with hyperglycemia[ICD10: E11.65] Diagnosis: Essential (primary) hypertension[ICD10: I10] Diagnosis: Anemia, unspecified[ICD10: D64.9] Karmen Ash MD, [facility] CPT- 4: 15373 02/19/2017 ([id number]) 59684 EST. P ATIENT, LEVEL IV Diagnosis: Slow transit constipation[ICD10: K59.01] Diagnosis: Gastro-esophageal reflux disease without esophagitis[ICD10: K21.9] Diagnosis: Essential (primary) hypertension[ICD10: I10] Karmen Ash MD, [facility] CPT-4: 23370 01/21/2017 ([id number]) 70436 EST. P ATIENT, LEVEL IV Diagnosis: Type 2 diabetes mellitus with hyperglycemia[ICD10: E11.65] Diagnosis: Vitamin D deficiency, unspecified[ICD10: E55.9] Diagnosis: Essential (primary) hypertension[ICD10: I10] Diagnosis: Chronic obstructive pulmonary disease, unspecified[ICD10: J44.9] Karmen Ash MD, [facility] CPT-4: 86162 12/20/2016 ([id number]) 60831 EST. P ATIENT, LEVEL IV Diagnosis: Type 2 diabetes mellitus with hyperglycemia[ICD10: E11.65] Diagnosis: Essential (primary) hypertension[ICD10: I10] Diagnosis: Mixed hyperlipidemia[ICD10: E78.2] Diagnosis: Vitamin D deficiency, unspecified[ICD10: E55.9] Karmen Ash MD, [facility] CPT-4: 66055 08/23/2016 ([id number]) 18247 EST. P ATIENT, LEVEL IV Diagnosis: Type 2 diabetes mellitus with hyperglycemia[ICD10: E11.65] Diagnosis: Essential (primary) hypertension[ICD10: I10] Diagnosis: Chronic obstructive pulmonary disease, unspecified[ICD10: J44.9] Karmen Ash MD, [facility] CPT-4: 61296 05/22/2016 ([id number]) 15828 EST. P ATIENT, LEVEL III Diagnosis: Dysuria[ICD10: R30.0] Diagnosis: Essential (primary) hypertension[ICD10: I10] Karmen Ash MD, [facility] CPT-4: 46340 02/24/2016 ([id number]) 44656 EST. P ATIENT, LEVEL IV Diagnosis: Gastro-esophageal reflux disease without esophagitis[ICD10: K21.9] Diagnosis: Slow transit constipation[ICD10: K59.01] Diagnosis: Type 2 diabetes mellitus with hyperglycemia[ICD10: E11.65] Karmen Ash MD, [facility] CPT-4: 84413 01/27/2016 ([id number]) 14933 EST. P ATIENT, LEVEL IV Diagnosis: Essential (primary) hypertension[ICD10: I10] Diagnosis: Type 2 diabetes mellitus with hyperglycemia[ICD10: E11.65] Diagnosis: Vitamin D deficiency, unspecified[ICD10: E55.9] Diagnosis: Chronic obstructive pulmonary disease, unspecified[ICD10: J44.9] Diagnosis: Mixed hyperlipidemia[ICD10: E78.2] Diagnosis: Tobacco use[ICD10: Z72.0] Karmen Ash MD, [facility] CPT- 4: 38922 11/25/2015 ([id number]) 83004 EST. P ATIENT, LEVEL IV Diagnosis: Type 2 diabetes mellitus with hyperglycemia[ICD10: E11.65] Diagnosis: Essential (primary) hypertension[ICD10: I10] Diagnosis: Vitamin D deficiency, unspecified[ICD10: E55.9] Karmen Ash MD, [facility] CPT-4: 15693 07/28/2015 ([id number]) 31481 EST. P ATIENT, LEVEL III Diagnosis: Type 2 diabetes mellitus with hyperglycemia[ICD10: E11.65] Diagnosis: Essential (primary) hypertension[ICD10: I10] Violeta Ash MD, [facility] CPT-4: 32737 05/26/2015 ([id number]) 52701 EST. P ATIENT, LEVEL III Diagnosis: DIABETES TYPE II[ICD9: 250.00] Diagnosis: COPD (chronic obstructive pulmonary disease)[ICD9: 496] Diagnosis: ESSENTIAL HYPERTENSION[ICD9: 401.9] Diagnosis: Cough[ICD9: 786.2] Violeta Ash MD, [facility] CPT-4: 41427 05/06/2015 ([id number]) 22450 EST. P ATIENT, LEVEL III Diagnosis: COPD (chronic obstructive pulmonary disease)[ICD9: 496] Diagnosis: DIABETES TYPE II[ICD9: 250.00] Diagnosis: Muscle ache[ICD9: 729.1] Karmen Ash MD, [facility] CPT- 4: 61285 04/25/2015 ([id number]) 04560 EST. P ATIENT, LEVEL III Diagnosis: ACTINIC KERATOSIS[ICD9: 702.0] Diagnosis: COPD (chronic obstructive pulmonary disease)[ICD9: 496] Diagnosis: DIABETES TYPE II[ICD9: 250.00] Diagnosis: ACUTE URI[ICD9: 465.9] Violeta Ash MD, [facility] CPT-4: 52417 04/12/2015 ([id number]) 90118 EST. P ATIENT, LEVEL III Diagnosis: DIABETES TYPE II[ICD9: 250.00] Violeta Ash MD, [facility] CPT-4: 91744 03/24/2015 ([id number]) 46876 EST. P ATIENT, LEVEL IV Diagnosis: DIABETES TYPE II[ICD9: 250.00] Diagnosis: Hypoglycemia[ICD9: 251.2] Diagnosis: Skin texture changes[ICD9: 782.8] Violeta Ash MD, [facility] CPT-4: 90016 03/07/2015 ([id number]) 30747 EST. P ATIENT, LEVEL IV Diagnosis: COPD (chronic obstructive pulmonary disease)[ICD9: 496] Diagnosis: Fatigue[ICD9: 780.79] Diagnosis: Insulin dependent diabetes mellitus[ICD9: 250.00] Diagnosis: Unsteady gait[ICD9: 781.2] Maame Ash MD, [facility] CPT-4: 81690 02/17/2015 ([id number]) 61243 EST. P ATIENT, LEVEL IV Diagnosis: BPPV (benign paroxysmal positional vertigo)[ICD9: 386.11] Diagnosis: Impacted cerumen[ICD9: 380.4] Diagnosis: ESSENTIAL HYPERTENSION[ICD9: 401.9] Diagnosis: Insulin dependent diabetes mellitus[ICD9: 250.00] [facility] CPT-4: 97497 12/23/2014 ([id number]) OFFICE [facility] 4 Diagnosis: Insulin dependent diabetes mellitus[ICD9: 250.00] Diagnosis: BPPV (benign paroxysmal positional vertigo)[ICD9: 386.11] Diagnosis: COPD (chronic obstructive pulmonary disease)[ICD9: 496] Diagnosis: Tobacco abuse[ICD9: 305.1] Diagnosis: Osteoarthritis[ICD9: 715.90] [facility] CPT- 4: 41509 12/09/2014 Plan of Care Planned Activity Notes C odes Status Date Appointment: Injection 06/13/2018 Patient Education: Patient Medication [...] in pain. 06/06/2018 [phone] [phone] (15 min) Moderate 06/06/2018 Patient Education: [...] months 04/04/2018 Appointment: Karmen Espinal WPtel: [phone] [phone] [place] (15 min) Moderate 04/04/2018 Patient Education: Patient Medication Summary Completed 04/04/2018 Care Plan: Cbc With Differential Pending 04/04/2018 Care Plan: Testosterone repeat in 2 months Pending 04/04/2018 Appointment: Karmen Espinal WPtel: [phone] [phone] [place] (15 min) Moderate 03/25/2018 Visit Plan: Low back pain -history of kidney stone-UA negative today -increase fluids and call if pain does not resolve or if any worse. 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 01/30/2018 Appointment: Karmen Espinal WPtel: [phone] [place] [phone] [place] (15 min) Moderate 01/30/2018 Patient Education: Patient Medication Summary Completed 01/30/2018 Appointment: Karmen Espinal WPtel: [phone] [place] (15 min) Moderate 01/28/2018 Appointment: [place] 01/17/2018 Patient Education: Patient Medication Summary Completed 01/17/2018 Visit Plan: Cellulitis - start oral antibiotics as directed, return to clinic as previously directed, call for acute change in symptoms, worsening redness, warmth, discharge. 01/14/2018 Appointment: Karmen Espinal WPtel: [phone] [facility] [place] [address] (10 min) Simple 01/14/2018 Patient Education: Patient [...] less controlled. 01/13/2018 Appointment: Karmen Espinal WPtel: [phone] [phone] (15 min) Moderate 01/13/2018 Patient Education: Patient Medication Summary Completed 01/13/2018 Referral: Hugo Villatoro HPtel:[phone] [facility] Patient's informed. Referral info ned monroy. Completed [...] change in blood pressure readings at home. Kkiytqmq-qdxwwq-ucama to see Dr Villatoro Constipation-start linzess daily 11/19/2017 Appointment: Karmen Espinal WPtel: [phone] (30 min) Complex 11/19/2017 Patient Education: Patient Medication Summary Completed 11/19/2017 Care Plan: Referral Order bloating, nausea SNOMED-CT : 741392843 Pending 11/19/2017 Visit Plan: Low back pain- [...] changes. 10/02/2017 Appointment: Brun[facility] Marav[facility]el[facility] [phone] [facility] (15 min) Moderate 10/02/2017 Patient Education: [...] controlled. 07/23/2017 Appointment: [facility]inal [facility]el[facility] [phone] [phone] (30 min) Complex 07/23/2017 Patient Education: [...] history 04/25/2017 Appointment: [facility]inal [facility]el[facility] [phone] [phone] (30 min) Complex 04/25/2017 Patient Education: [...] readings are starting to become less controlled. Ynnbbw-haltgip-zfufq labs 02/19/2017 Appointment: Karmen Espinal WPtel: [phone] [phone] [place] (30 min) Complex 02/19/2017 Patient Education: [...] 1 month 01/21/2017 Appointment: Karmen Espinal WPtel: [address] [place], [place] [phone] [place] (30 min) Complex 01/21/2017 Patient Education: Patient Medication Summary Completed 01/21/2017 Patient Education: Smoking and Tobacco Addiction Completed 01/21/2017 Patient Education: Hypertension Completed 01/21/2017 Care Plan: Referral Order SNOMED-CT : 940954014 Pending 01/21/2017 Visit Plan: Diabetes Mellitus - [...] changes. 12/20/2016 Appointment: Karmen Espinal WPtel: [facility]5 [phone] [place] [address] (30 min) Complex 12/20/2016 Patient Education: Patient Medication Summary Completed 12/20/2016 Patient Education: Smoking and Tobacco Addiction Completed 12/20/2016 Patient Education: Hypertension Completed 12/20/2016 Appointment: Karmen Espinal WPtel: [phone] (30 min) Complex 09/06/2016 Visit Plan: [...] level 08/23/2016 Appointment: Karmen Espinal WPtel: [facility]5 [phone] [place] [address] (30 min) Complex 08/23/2016 Patient Education: Patient [...] changes. 05/22/2016 Appointment: Karmen Espinal WPtel: [phone] (30 min) Complex 05/22/2016 Patient Education: Patient Medication Summary Completed 05/22/2016 Patient Education: Smoking and Tobacco Addiction Completed 05/22/2016 Care Plan: Cbc With Differential Ordered 05/22/2016 Care Plan: %Hba1C LOIN C : 89520-3 Ordered 05/22/2016 Care Plan: Tsh Ordered 05/22/2016 [...] update 02/24/2016 Appointment: Karmen Espinal WPtel: [phone] (30 min) Complex 02/24/2016 Patient Education: [...] this regimen. 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 Ervynsih-mzvqinkl-MYCO SIMVASTATIN X 2 WEEKS AND CALL WITH [...] Care Plan: COMPLETE CBC AUTOMATED LOINC : 46221-0 Ordered 03/24/2015 Visit Plan: Diabetes Mellitus - [...] to Dr. Donohue for removal. 03/07/2015 Appointment: Mihir Violeta WPtel[facility] [phone] [facility] (15 min) Moderate 03/07/2015 Patient Education: [...] hearing. The wax was removed by [facility] ctitioner due to the wax being more [...] Care Plan: COMPLETE CBC AUTOMATED LOINC : 15729-5 Ordered 12/23/2014 Visit Plan: BPPV - Benign [...] appt 12/09/2014 Appointment: Karmen Espinal WPtel: [phone] [phone] [place] (S) New Patient 12/09/2014 Patient Education: Patient Medication Summary Completed 12/09/2014 Patient Education: .Amazing charts Parox ysmal positional vertigo Completed 12/09/2014 Patient Education: Smoking and Tobacco Addiction Completed 12/09/2014 Referral: Hugo Villatoro HPtel:[phone] [facility] [place] Referral Appointment Requested Referral: [...] snacks as discussed-follow up in 1 month CHECK UA TORADOL [...] readings are starting to become less controlled. Ldvwtv-lvtzaqc-txzxq labs . COPD -recent pneum onia-symptoms have [...] POTENTIAL SIDE EFFECTS AND WORSENING OF SYMPTOMS. Wkajgnrm-wrvoclby-TCBZ SIMVASTATIN X 2 WEEKS AND CALL WITH [...] if symptoms worsen-call saturday with update . Diabetes Mellitus - controlled - per [...] change in blood pressure readings at home. Refer to Dr Irving marino or evaluation [...] change in blood pressure readings at home. Dfkaxtmb-bqmczf-cqymt to see Dr Villatoro Constipation-start linzess daily [...]
--- OUTSIDE RECORDS SUMMARY | 2020-03-29 09:46 | XMS REPORT | CCD ---
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 Name Role Phone PP Unavailable CCM Unavailable Summary Purpose Interface Exchange Insurance Providers Payer name Policy type / Coverage type Covered green party ID Effective Begin Date Effective End Date WPS Medicare Part B Medicare Part B [id number] Unknown Unknown [employer] Medicar e Part B [id number] Unknown Unkn own Family history Father Diagnosis Age At Onset Cancer Unknown Mother Diagnosis Age At Onset Cancer Unknown Social History Social History Element Codes Description Effective Dates Marital status Unknown M arried 12/09/2014 Employment Unknown Retir ed 12/09/[address]: 02037981 Currently smokes tobacco 12/09/2014 Number of years using tobacco Unknown > 50 12/09/2014 Number of cigarettes/day Unknown 30 (Pack and a half) 12/09/[address]: 178794937 Never drinks alcohol 12/09/2014 Allergies, Adverse Reactions, [...] cypiona te 200 mg/mL intramuscular oil RxNorm: 816798 Milliliter(s) IM 06/13/2018 06/13/2018 In active testosterone cypiona te 200 mg/mL intramuscular oil RxNorm: 783720 Milliliter(s) IM 06/05/2018 06/05/2018 In active testosterone cypiona te 200 mg/mL intramuscular oil RxNorm: 234689 1/2 Milliliter(s) IM weekly 05/30/2018 09/26/2018 Active testosterone cypiona te 200 mg/mL intramuscular oil RxNorm: 834354 Milliliter(s) IM 05/30/2018 05/30/2018 In active testosterone cypiona te 200 mg/mL intramuscular oil RxNorm: 278818 Milliliter(s) IM 05/22/2018 05/22/2018 In active hydrocodone 5 mg-linh taminophen 325 mg tablet RxNorm: 107294 1 Tablet(s) PO Q6-8H as needed 05/20/2018 06/13/2018 Inactive testosterone cypiona te 200 mg/mL intramuscular oil RxNorm: 899393 1/2 Milliliter(s) IM 05/12/2018 05/12/2018 Inactive testosterone cypiona te 200 mg/mL intramuscular oil RxNorm: 309513 Milliliter(s) IM 05/02/2018 05/02/2018 In active testosterone cypiona te 200 mg/mL intramuscular oil RxNorm: 960783 1/2 Milliliter(s) IM weekly 04/24/2018 05/29/2018 Inactive testosterone cypiona te 200 mg/mL intramuscular oil RxNorm: 298027 0.5 Milliliter(s) IM 04/24/2018 04/24/2018 Inactive hydrocodone 5 mg-linh taminophen 325 mg tablet RxNorm: 592862 1 Tablet(s) PO Q6-8H as needed 04/22/2018 05/16/2018 Inactive testosterone cypiona te 200 mg/mL intramuscular oil RxNorm: 020161 1/2 Milliliter(s) IM 04/17/2018 04/17/2018 Inactive testosterone cypiona te 200 mg/mL intramuscular oil RxNorm: 738758 1/2 Milliliter(s) IM weekly 04/16/2018 04/23/2018 Inactive Jardiance 10 mg tablet RxNorm: 5907410 1 Tablet(s) PO daily 04/04/2018 12/29/2018 Active Protonix 40 mg table t,delayed release RxNorm: 965507 1 Tablet(s) PO daily TAKE 1 TABLET BY MOUTH DAILY 04/04/2018 03/29/2019 Active - Ref: [id number] testosterone cypiona te 200 mg/mL intramuscular oil RxNorm: 558319 1 Milliliter(s) IM monthly 04/04/2018 04/15/2018 Inactive hydrocodone 5 mg-linh taminophen 325 mg tablet RxNorm: 129997 1 Tablet(s) PO Q6-8H as needed 03/19/2018 04/12/2018 Inactive Flomax 0.4 mg capsule RxNorm: 752717 1 Capsule(s) PO daily 03/10/2018 03/04/2019 Active Urecholine 25 mg tablet RxNorm: 798261 1 Tablet(s) PO BID 03/10/2018 07/07/2018 Active ketorolac 60 mg/2 mL intramuscular solution RxNorm: 3761852 Milliliter(s) IM 03/07/2018 03/07/2018 In active metformin 500 mg tablet RxNorm: 588100 Tablet(s) TAKE 1 TABLET BY MOUTH DAILY 02/20/2018 02/14/2019 Ac tive 1 q am and 1/2 tab q pm hydrocodone 5 mg-linh taminophen 325 mg tablet RxNorm: 491621 1 Tablet(s) PO Q6-8H as needed 02/20/2018 03/16/2018 Inactive Kenalog 40 mg/mL bartolome pension for injection RxNorm: 9099939 1.5 Milliliter(s) In j 01/30/2018 01/30/2018 In active hydrocodone 5 mg-linh taminophen 325 mg tablet RxNorm: 657074 1 Tablet(s) PO Q6-8H as needed 01/23/2018 02/16/2018 Inactive Urecholine 25 mg tablet RxNorm: 194905 1 Tablet(s) PO BID 01/22/2018 03/09/2018 Inactive Flomax 0.4 mg capsule RxNorm: 058758 1 Capsule(s) PO daily 01/22/2018 03/09/2018 Inactive Flomax 0.4 mg capsule RxNorm: 477765 1 Capsule(s) PO daily 01/22/2018 01/21/2018 Inactive Urecholine 25 mg tablet RxNorm: 639733 1 Tablet(s) PO BID 01/22/2018 01/21/2018 Inactive testosterone cypiona te 200 mg/mL intramuscular oil RxNorm: 271636 Milliliter(s) IM 01/17/2018 01/17/2018 In active testosterone cypiona te 200 mg/mL intramuscular oil RxNorm: 036678 1 Milliliter(s) IM monthly 01/17/2018 04/03/2018 Inactive lisinopril 10 mg tablet RxNorm: 078923 TAKE 1 TABLET BY MOUTH TWO TIMES DAILY 01/14/2018 01/08/2019 Ac tive - First Attempt Ref: [id number] doxycycline hyclate 100 mg tablet RxNorm: 280082 1 Tablet(s) PO BID 01/14/2018 01/23/2018 Inactive Xanax 0.5 mg tablet RxNorm: 789056 1 Tablet(s) PO TID 01/08/2018 04/07/2018 Inactive nystatin 100,000 uni t/mL oral suspension RxNorm: 146702 4 Milliliter(s) PO QI D Swish and swallow 01/08/2018 01/07/2018 Inactive nystatin 100,000 uni t/mL oral suspension RxNorm: 482770 4 Milliliter(s) PO QI D Swish and swallow 01/08/2018 01/12/2018 Inactive simvastatin 40 mg ta blet RxNorm: 408880 TAKE 1 TABLET BY MOUT H DAILY AT BEDTIME 12/30/2017 12/24/2018 Ac tive - First Attempt Ref: [id number] metformin 500 mg tablet RxNorm: 775670 TAKE 1 TABLET BY MOUTH DAILY 12/30/2017 02/19/2018 Inactive - First Attempt Ref: [id number] hydrocodone 5 mg-linh taminophen 325 mg tablet RxNorm: 716743 1 Tablet(s) PO Q6-8H as needed 12/25/2017 01/18/2018 Inactive Protonix 40 mg table t,delayed release RxNorm: 090053 Tablet(s) TAKE 1 TABL ET BY MOUTH DAILY 11/20/2017 04/03/2018 Inactive - Ref: [id number] Linzess 72 mcg capsule RxNorm: 6315954 1 Capsule(s) PO daily 11/19/2017 No Stop Date Active hydrocodone 5 mg-linh taminophen 325 mg tablet RxNorm: 697226 1 Tablet(s) PO Q6-8H as needed 11/19/2017 12/13/2017 Inactive hydrocodone 5 mg-linh taminophen 325 mg tablet RxNorm: 020362 1 Tablet(s) PO Q6-8H as needed 10/28/2017 11/18/2017 Inactive Xanax 0.5 mg tablet RxNorm: 671427 1 Tablet(s) PO TID 10/25/2017 12/22/2017 Inactive Xanax 0.5 mg tablet RxNorm: 445096 TAKE ONE TABLET BY MOUTH THREE TIMES A D AY 10/24/2017 12/22/2017 In active hydrocodone 5 mg-linh taminophen 325 mg tablet RxNorm: 161226 1 Tablet(s) PO Q6-8H as needed 09/30/2017 10/24/2017 Inactive Protonix 40 mg table t,delayed release RxNorm: 777433 TAKE 1 TABLET BY MOUT H DAILY 09/16/2017 11/19/2017 In active - Ref: [id number] Yovana Perkins 300 unit/mL (1.5 mL) subcutaneous insulin pen RxNorm: 4660327 35 Unit(s) SQ QHS 08/30/2017 No Stop Date Active dosage increase hydrocodone 5 mg-linh taminophen 325 mg tablet RxNorm: 219452 1 Tablet(s) PO Q6-8H as needed 08/28/2017 09/29/2017 Inactive hydrocodone 5 mg-linh taminophen 325 mg tablet RxNorm: 238173 1 Tablet(s) PO Q6-8H as needed 07/23/2017 08/24/2017 Inactive lisinopril 10 mg tablet RxNorm: 095172 1 Tablet(s) PO BID Take 1 tablet by mout h daily 07/23/2017 01/13/2018 Inactive hydrocodone 5 mg-linh taminophen 325 mg tablet RxNorm: 591699 1 Tablet(s) PO Q6-8H as needed 06/27/2017 07/22/2017 Inactive Xanax 0.5 mg tablet RxNorm: 672489 1 Tablet(s) PO TID 06/18/2017 10/25/2017 Inactive hydrocodone 5 mg-linh taminophen 325 mg tablet RxNorm: 457029 1 Tablet(s) PO Q6-8H as needed 05/27/2017 06/26/2017 Inactive Levaquin 500 mg tablet RxNorm: 108443 1 Tablet(s) PO daily 05/24/2017 05/23/2017 Inactive Levaquin 500 mg tablet RxNorm: 434320 1 Tablet(s) PO daily 05/24/2017 05/30/2017 Inactive Protonix 40 mg table t,delayed release RxNorm: 397194 Take 1 tablet by mout h daily 04/29/2017 09/15/2017 In active - Ref: [id number] hydrocodone 5 mg-linh taminophen 325 mg tablet RxNorm: 033245 1 Tablet(s) PO Q6-8H as needed 04/25/2017 05/26/2017 Inactive metformin 500 mg tablet RxNorm: 740137 Take 1 tablet by mouth daily 04/08/2017 12/29/2017 Inactive - First Attempt Ref: [id number] hydrocodone 5 mg-linh taminophen 325 mg tablet RxNorm: 588772 1 Tablet(s) PO Q6-8H as needed 03/27/2017 04/24/2017 Inactive hydrocodone 5 mg-linh taminophen 325 mg tablet RxNorm: 966430 1 Tablet(s) PO Q6-8H as needed 02/25/2017 03/26/2017 Inactive Protonix 40 mg table t,delayed release RxNorm: 520400 Tablet(s) Take 1 tabl et by mouth BID 02/25/2017 04/28/2017 Inactive Protonix 40 mg table t,delayed release RxNorm: 944936 Tablet(s) Take 1 tabl et by mouth BID 02/19/2017 02/18/2017 Inactive Protonix 40 mg table t,delayed release RxNorm: 267501 Tablet(s) Take 1 tabl et by mouth BID 02/19/2017 02/24/2017 Inactive lisinopril 10 mg tablet RxNorm: 450319 Take 1 tablet by mouth daily 01/29/2017 07/22/2017 Inactive - First Attempt Ref: [id number] hydrocodone 5 mg-linh taminophen 325 mg tablet RxNorm: 736130 1 Tablet(s) PO Q6-8H as needed 01/25/2017 02/24/2017 Inactive simvastatin 40 mg ta blet RxNorm: 182584 Tablet(s) Take 1 tabl et by mouth daily at bedtime 01/03/2017 12/28/2017 Inactive lisinopril 10 mg tablet RxNorm: 652490 Tablet(s) Take 1 tablet by mouth daily 01/03/2017 01/28/2017 In active Protonix 40 mg table t,delayed release RxNorm: 368863 Tablet(s) Take 1 tabl et by mouth daily 12/28/2016 02/18/2017 Inactive hydrocodone 5 mg-linh taminophen 325 mg tablet RxNorm: 887893 1 Tablet(s) PO Q6-8H as needed 12/26/2016 01/24/2017 Inactive Xanax 0.5 mg tablet RxNorm: 441928 1 Tablet(s) PO TID 12/12/2016 03/11/2017 Inactive simvastatin 40 mg ta blet RxNorm: 767176 Tablet(s) Take 1 tabl et by mouth daily at bedtime 11/30/2016 01/02/2017 Inactive simvastatin 40 mg ta blet RxNorm: 374342 Take 1 tablet by mout h daily at bedtime 11/29/2016 11/29/2016 In active - First Attempt Ref: [id number] Protonix 40 mg table t,delayed release RxNorm: 315599 Take 1 tablet by mout h daily 11/27/2016 12/27/2016 In active - First Attempt Ref: [id number] hydrocodone 5 mg-linh taminophen 325 mg tablet RxNorm: 502293 1 Tablet(s) PO Q6-8H as needed 11/26/2016 12/25/2016 Inactive hydrocodone 5 mg-linh taminophen 325 mg tablet RxNorm: 619644 1 Tablet(s) PO Q8 as needed 10/24/2016 11/25/2016 Inactive Xanax 0.5 mg tablet RxNorm: 562988 1 Tablet(s) PO TID 10/09/2016 12/25/2016 Inactive hydrocodone 5 mg-linh taminophen 325 mg tablet RxNorm: 281304 1 Tablet(s) PO Q8 as needed 09/27/2016 10/23/2016 Inactive lisinopril 10 mg tablet RxNorm: 784556 Take 1 tablet by mouth daily 09/25/2016 01/02/2017 Inactive - First Attempt Ref: [id number] Vitamin D2 50,000 un it capsule RxNorm: 206624 1 Capsule(s) PO QW 09/06/2016 No Stop Date Active hydrocodone 5 mg-linh taminophen 325 mg tablet RxNorm: 814073 1 Tablet(s) PO Q8 as needed 08/28/2016 09/26/2016 Inactive Toujeo SoloStar 300 unit/mL (1.5 mL) subcutaneous insulin pen RxNorm: 9021509 25 Unit(s) SQ QHS 08/23/2016 08/29/2017 Inactive dosage increase hydrocodone 5 mg-linh taminophen 325 mg tablet RxNorm: 326093 1 Tablet(s) PO Q8 as needed 07/26/2016 08/27/2016 Inactive Protonix 40 mg table t,delayed release RxNorm: 116303 Take 1 tablet by mout h daily 07/24/2016 11/26/2016 In active - First Attempt Ref: [id number] hydrocodone 5 mg-linh taminophen 325 mg tablet RxNorm: 034932 1 Tablet(s) PO Q8 as needed 06/19/2016 07/21/2016 Inactive Touanuj SoloStar 300 unit/mL (1.5 mL) subcutaneous insulin pen RxNorm: 4375062 32 Unit(s) SQ QHS 05/30/2016 08/22/2016 Inactive dosage increase hydrocodone 5 mg-linh taminophen 325 mg tablet RxNorm: 858445 1 Tablet(s) PO Q8 as needed 05/22/2016 06/18/2016 Inactive hydrocodone 5 mg-linh taminophen 325 mg tablet RxNorm: 671135 1 Tablet(s) PO Q8 as needed 04/18/2016 05/17/2016 Inactive Protonix 40 mg table t,delayed release RxNorm: 139300 Take 1 tablet by mout h daily 04/05/2016 07/03/2016 In active - Ref: [id number] metformin 500 mg tablet RxNorm: 919482 Take 1 tablet by mouth daily 04/04/2016 07/02/2016 Inactive - Ref: [id number] Xanax 0.5 mg tablet RxNorm: 051848 1 Tablet(s) PO TID 03/30/2016 09/25/2016 Inactive Xanax 0.5 mg tablet RxNorm: 608231 1 Tablet(s) PO TID 03/23/2016 12/25/2016 Inactive hydrocodone 5 mg-linh taminophen 325 mg tablet RxNorm: 040068 1 Tablet(s) PO Q8 as needed 03/06/2016 04/04/2016 Inactive Cipro 500 mg tablet RxNorm: 819362 1 Tablet(s) PO BID 02/24/2016 03/04/2016 Inactive Miralax 17 gram oral powder packet RxNorm: 765776 1 packet PO every oth er day 01/27/2016 No Stop Date Active hydrocodone 5 mg-linh taminophen 325 mg tablet RxNorm: 989297 1 Tablet(s) PO Q8 as needed 01/27/2016 02/25/2016 Inactive lisinopril 10 mg tablet RxNorm: 290284 1 Tablet(s) PO daily 01/12/2016 09/24/2016 Inactive simvastatin 40 mg ta blet RxNorm: 847547 1 Tablet(s) PO QHS 01/12/2016 11/28/2016 Inactive simvastatin 40 mg ta blet RxNorm: 623540 1 Tablet(s) PO QHS 01/11/2016 01/11/2016 Inactive lisinopril 10 mg tablet RxNorm: 082387 1 Tablet(s) PO daily 01/06/2016 01/11/2016 Inactive simvastatin 40 mg ta blet RxNorm: 875165 1 Tablet(s) PO daily 12/28/2015 01/10/2016 Inactive hydrocodone 5 mg-linh taminophen 325 mg tablet RxNorm: 515231 1 Tablet(s) PO Q8 as needed 12/27/2015 01/26/2016 Inactive Xanax 0.5 mg tablet RxNorm: 588829 1 Tablet(s) PO TID 11/30/2015 03/29/2016 Inactive meclizine 25 mg tablet RxNorm: 426782 1 Tablet(s) PO Q6 PRN TAKE ONE TABLET BY MOUTH EVERY 6 HOURS NEEDED 11/25/2015 02/22/2016 Inactive Toujeo SoloStar 300 unit/mL (1.5 mL) subcutaneous insulin pen RxNorm: 6636191 30 Unit(s) SQ QHS 11/25/2015 05/29/2016 Inactive dosage increase omeprazole 20 mg cap jacquelyn,delayed release RxNorm: 734753 1 Capsule(s) PO daily 10/06/2015 01/26/2016 In active Toujeo SoloStar 300 unit/mL (1.5 mL) subcutaneous insulin pen RxNorm: 9160967 35 Unit(s) SQ QHS 08/02/2015 11/24/2015 Inactive dosage increase Vitamin D2 50,000 un it capsule RxNorm: 296439 1 Capsule(s) PO QW 08/02/2015 09/05/2016 Inactive hydrocodone 5 mg-linh taminophen 325 mg tablet RxNorm: 096570 1 Tablet(s) PO Q8 as needed 07/11/2015 12/26/2015 Inactive Xanax 0.5 mg tablet RxNorm: 587272 1 Tablet(s) PO TID 06/30/2015 06/29/2015 Inactive Xanax 0.5 mg tablet RxNorm: 046167 1 Tablet(s) PO TID 06/30/2015 12/25/2015 Inactive hydrocodone 5 mg-linh taminophen 325 mg tablet RxNorm: 603630 1 Tablet(s) PO Q8 as needed 05/06/2015 07/10/2015 Inactive Symbicort 160 mcg-4. 5 mcg/actuation HFA aerosol inhaler RxNorm: 4998576 INH 04/25/2015 No Stop Date Active Levemir FlexTouch 10 0 unit/mL (3 mL) subcutaneous insulin pen RxNorm: 021763 30 Unit(s) SQ QHS 04/25/2015 11/24/2015 Inactive prednisone 20 mg tablet RxNorm: 840128 1 Tablet(s) PO BID 04/25/2015 04/29/2015 Inactive metformin 500 mg tablet RxNorm: 198782 1 Tablet(s) PO daily 04/25/2015 04/03/2016 Inactive amoxicillin 500 mg c apsule RxNorm: 737176 1 Capsule(s) PO TID 04/14/2015 04/13/2015 Inactive amoxicillin 500 mg c apsule RxNorm: 941404 1 Capsule(s) PO TID a nd recommend probiotic tid (otc) 04/14/2015 04/20/2015 Inactive Kenalog 40 mg/mL bartolome pension for injection RxNorm: 5293103 Milliliter(s) Inj 04/12/2015 04/12/2015 In active hydrocodone 5 mg-linh taminophen 325 mg tablet RxNorm: 758055 1 Tablet(s) PO Q8 as needed 03/30/2015 05/05/2015 Inactive Lantus 100 unit/mL s ubcutaneous solution RxNorm: 027109 25 Unit(s) SQ QPM 03/24/2015 04/25/2015 In active meclizine 25 mg tablet RxNorm: 094864 Tablet(s) TAKE ONE TABLET BY MOUTH EVERY 6 HOURS NEEDED 03/08/2015 04/06/2015 Inactive meclizine 25 mg tablet RxNorm: 098523 TAKE ONE TABLET BY MOUTH EVERY 6 HOURS A S NEEDED 02/25/2015 03/03/2015 Inactive Lantus 100 unit/mL s ubcutaneous solution RxNorm: 799985 20 Unit(s) SQ QPM 02/23/2015 03/23/2015 In active Lantus 100 unit/mL s ubcutaneous solution RxNorm: 904169 25 Unit(s) SQ QPM 02/23/2015 02/22/2015 In active hydrocodone 5 mg-linh taminophen 325 mg tablet RxNorm: 582009 1 Tablet(s) PO Q8 as needed 02/17/2015 03/29/2015 Inactive Xanax 0.5 mg tablet RxNorm: 989055 1 Tablet(s) PO TID 02/03/2015 06/29/2015 Inactive Lantus 100 unit/mL s ubcutaneous solution RxNorm: 005157 20 Unit(s) SQ QPM 12/29/2014 02/22/2015 In active Phenergan 12.5 mg re ctal suppository RxNorm: 634895 1 Suppository RTL Q6 PRN 12/23/2014 No Stop Date Active nausea Kenalog 40 mg/mL bartolome pension for injection RxNorm: 7263542 Milliliter(s) Inj 12/23/2014 12/23/2014 In active prednisone 20 mg tablet RxNorm: 738384 2 Tablet(s) PO daily 12/13/2014 12/17/2014 Inactive prednisone 20 mg tablet RxNorm: 952519 2 Tablet(s) PO daily 12/13/2014 12/12/2014 Inactive meclizine 25 mg tablet RxNorm: 347081 1 Tablet(s) PO Q6 PRN 12/09/2014 02/24/2015 Inactive hydrocodone 5 mg-linh taminophen 325 mg tablet RxNorm: 706988 1 Tablet(s) PO Q8 as needed 12/09/2014 02/16/2015 Inactive Vitamin B-12 1,000 m cg/mL oral drops RxNorm: 9279745 1 Milliliter(s) PO d aily No Start Date Active Alphagan P 0.1 % eye drops RxNorm: 829095 1 Drop(s) OPH BID No Start Date Active aspirin 325 mg table t,delayed release RxNorm: 940466 1 Tablet(s) PO daily No Start Date Active Tricor 145 mg tablet RxNorm: 817963 1 Tablet(s) PO daily No Start Date Active vitamin [id number] B1 oral liquid RxNorm: 1,000 Microgram(s) PO daily No Start Date Active atenolol 50 mg tablet RxNorm: 699408 1 Tablet(s) PO daily No Start Date Active Protonix 40 mg table t,delayed release RxNorm: 987976 1 Tablet(s) PO daily No Start Date 04/04/2016 Inactive glipizide 10 mg tablet RxNorm: 241356 1 Tablet(s) PO BID No Start Date 03/22/2015 Inactive Lantus 100 unit/mL s ubcutaneous solution RxNorm: 398091 15 Unit(s) SQ QPM No Start Date 12/28/2014 Inactive lisinopril 10 mg tablet RxNorm: 387372 1 Tablet(s) PO daily No Start Date 01/05/2016 Inactive Vitamin D2 50,000 un it capsule RxNorm: 511530 1 Capsule(s) PO QW No Start Date 08/01/2015 Inactive Toujeo SoloStar 300 unit/mL (1.5 mL) subcutaneous insulin pen RxNorm: 7715834 30 Unit(s) SQ QHS No Start Date 08/01/2015 Inactive simvastatin 40 mg ta blet RxNorm: 714892 1 Tablet(s) PO daily No Start Date 12/27/2015 Inactive testosterone cypiona te 200 mg/mL intramuscular oil RxNorm: 608097 1 Milliliter(s) IM monthly No Start Date 01/16/2018 Inactive hydrocodone 5 mg-linh taminophen 325 mg tablet RxNorm: 427728 1 Tablet(s) PO Q8 as needed No Start Date 12/08/2014 Inactive metformin 500 mg tablet RxNorm: 019338 1 Tablet(s) PO daily No Start Date 04/24/2015 Inactive omeprazole 20 mg cap jacquelyn,delayed release RxNorm: 004220 1 Capsule(s) PO daily No Start Date 10/05/2015 Inactive Flomax 0.4 mg capsule RxNorm: 623860 1 Capsule(s) PO daily No Start Date 03/23/2015 Inactive Medication Administered Medication Codes Instruc tions Start Date Status testosterone cypionate 200 mg/mL intramuscular oil RxNorm: 594144 Milliliter 06/13/2018 Active testosterone cypionate 200 mg/mL intramuscular oil RxNorm: 665410 Milliliter 06/05/2018 No longer Active testosterone cypionate 200 mg/mL intramuscular oil RxNorm: 691018 Milliliter 05/30/2018 No longer Active testosterone cypionate 200 mg/mL intramuscular oil RxNorm: 389014 Milliliter 05/22/2018 No longer Active testosterone cypionate 200 mg/mL intramuscular oil RxNorm: 609245 1/2Milliliter 05/12/2018 No longer Active testosterone cypionate 200 mg/mL intramuscular oil RxNorm: 983307 Milliliter 05/02/2018 No longer Active testosterone cypionate 200 mg/mL intramuscular oil RxNorm: 152291 0.5Milliliter 04/24/2018 No longer Active testosterone cypionate 200 mg/mL intramuscular oil RxNorm: 552478 1/2Milliliter 04/17/2018 No longer Active ketorolac 60 mg/2 mL intramuscular solution RxNorm: 0143219 Milliliter 03/07/2018 No longer Active Kenalog 40 mg/mL suspension for injection RxNorm: 2700760 1.5Milliliter 01/30/2018 No longer Active testosterone cypionate 200 mg/mL intramuscular oil RxNorm: 255602 Milliliter 01/17/2018 No longer Active Kenalog 40 mg/mL suspension for injection RxNorm: 3365592 Milliliter 04/12/2015 No longer Active Kenalog 40 mg/mL suspension for injection RxNorm: 0989748 Milliliter 12/23/2014 No longer Active Immunizations Vaccine [...] Item Item Code Result Date Comp Metabolic Wan068 NA 139 mEq/L 04/01/2018 Comp Metabolic Ihj603 K 4.2 mEq/L 04/01/2018 Comp Metabolic Jfm841 CL 102 mEq/L 04/01/2018 Comp Metabolic Gou955 CO2 29.0 mEq/L 04/01/2018 Comp Metabolic Vwn899 AN ION GAP 12 04/01/2018 Comp Metabolic Rxy736 GL UCOSE 87 mg/dL 04/01/2018 Comp Metabolic Zmb579 Cr eat 1.1 mg/dL 04/01/2018 Comp Metabolic Wsf355 eG FR 70 ml/min/1.73m2 04/01 Comp Metabolic Kfk139 BUN 21 mg/dL 04/01/2018 Comp Metabolic Nyw896 B/ C Ratio 19.4 Ratio 04/01/2018 Comp Metabolic Imb749 CA LCIUM 9.1 mg/dL 04/01/2018 Comp Metabolic Bmk073 AL K PHOS 60 U/L 04/01/2018 Comp Metabolic Ybx018 T(SGOT) 15 U/L 04/01/2018 Comp Metabolic Wiu686 AL T(SGPT) 18 U/L 04/01/2018 Comp Metabolic Fsv580 BI LI T 0.4 mg/dL 04/01/2018 Comp Metabolic Chb736 AL BUMIN 4.0 g/dL 04/01/2018 Comp Metabolic Pnr328 TP RO 6.5 g/dL 04/01/2018 Comp Metabolic Qmj024 GL OB 2.5 g/dL 04/01/2018 Comp Metabolic Vaz596 A/ G Ratio 1.6 Ratio 04/01/2018 Comp Metabolic Sxg880 Os mo 280 mOsmo 04/01/2018 Lipid Ord30 [...] 34.3 pg 04/01/2018 Cbc With Differential Ord2 Mcmullen% 6.0 % 04/01/2018 Cbc With Differential Ord2 [...] 3.25 K/ul 04/01/2018 Cbc With Differential Ord2 Mcmullen ABS# 0.6 K/ul 04/01/2018 Cbc With Differential Ord2 Eos ABS# 0.4 K/ul 04/01/2018 Cbc With Differential Ord2 Baso ABS# 0.0 K/ul 04/01/2018 %Hba1C Kpc972 % HbA1c 68788-8 8.0 % 04/01/2018 %Hba1C Jmy847 Gluc Ave 183 mg/dL 04/01/2018 Testosterone Gvg688 Testo 111.3 ng/dL 04/01/2018 Testosterone Rti334 Testo 135.4 ng/dL 01/14/2018 Cbc With Differential [...] 36.0 pg 01/14/2018 Cbc With Differential Ord2 Mcmullen% 6.8 % 01/14/2018 Cbc With Differential Ord2 [...] 2.71 K/ul 01/14/2018 Cbc With Differential Ord2 Mcmullen ABS# 0.8 K/ul 01/14/2018 Cbc With Differential Ord2 Eos ABS# 0.2 K/ul 01/14/2018 Cbc With Differential Ord2 Baso ABS# 0.0 K/ul 01/14/2018 Comp Metabolic Kom836 NA 134 mEq/L 11/20/2017 Comp Metabolic Lzl293 K 4.4 mEq/L 11/20/2017 Comp Metabolic Lhx449 CL 99 mEq/L 11/20/2017 Comp Metabolic Vhx465 CO2 29.0 mEq/L 11/20/2017 Comp Metabolic Kjz131 AN ION GAP 10 11/20/2017 Comp Metabolic Ckp019 GL UCOSE 218 mg/dL 11/20/2017 Comp Metabolic Xri696 Cr eat 1.0 mg/dL 11/20/2017 Comp Metabolic Ycq841 eG FR 78 ml/min/1.73m2 11/20 Comp Metabolic Taf954 BUN 13 mg/dL 11/20/2017 Comp Metabolic Zxu380 B/ C Ratio 13.3 Ratio 11/20/2017 Comp Metabolic Ayo870 CA LCIUM 9.0 mg/dL 11/20/2017 Comp Metabolic Sqv908 AL K PHOS 71 U/L 11/20/2017 Comp Metabolic Wyf532 T(SGOT) 18 U/L 11/20/2017 Comp Metabolic Cbr159 AL T(SGPT) 17 U/L 11/20/2017 Comp Metabolic Vea541 BI LI T 0.4 mg/dL 11/20/2017 Comp Metabolic Sfp497 AL BUMIN 4.1 g/dL 11/20/2017 Comp Metabolic Mjo336 TP RO 6.5 g/dL 11/20/2017 Comp Metabolic Jxq960 GL OB 2.4 g/dL 11/20/2017 Comp Metabolic Kvv085 A/ G Ratio 1.8 Ratio 11/20/2017 Comp Metabolic Qdq121 Os mo 275 mOsmo 11/20/2017 Cbc With [...] 35.2 pg 11/20/2017 Cbc With Differential Ord2 Mcmullen% 7.2 % 11/20/2017 Cbc With Differential Ord2 [...] 3.34 K/ul 11/20/2017 Cbc With Differential Ord2 Mcmullen ABS# 0.6 K/ul 11/20/2017 Cbc With Differential Ord2 Eos ABS# 0.3 K/ul 11/20/2017 Cbc With Differential Ord2 Baso ABS# 0.0 K/ul 11/20/2017 Vitamin D 25 Oh Fpb7962 VITAMIN D, 25 HYDROXY 43.72 ng/mL 11/20/2017 %Hba1C Ryc662 % HbA1c 88487-8 7.4 % 11/20/2017 %Hba1C Aer321 Gluc Ave 166 mg/dL 11/20/2017 %Hba1C Qgk712 % HbA1c 51737-0 7.2 % 08/20/2017 %Hba1C Qjg286 Gluc Ave 160 mg/dL 08/20/2017 Lipid Ord30 [...] 29.1 % 08/20/2017 Cbc With Differential Ord2 Mcmullen% 7.6 % 08/20/2017 Cbc With Differential Ord2 MCH 34.7 pg 08/20/2017 Cbc With Differential Ord2 MCHC 33.7 pg 08/20/2017 Cbc With Differential Ord2 Eos% 3.4 % 08/20/2017 Cbc With Differential Ord2 Baso% 0.2 % 08/20/2017 Cbc With Differential Ord2 PLT 215 K/ul 08/20/2017 Cbc With Differential Ord2 Neut ABS# 4.97 K/ul 08/20/2017 Cbc With Differential Ord2 RDW 14.0 % 08/20/2017 Cbc With Differential Ord2 Lymph ABS# 2.42 K/ul 08/20/2017 Cbc With Differential Ord2 Mcmullen ABS# 0.6 K/ul 08/20/2017 Cbc With Differential Ord2 Eos ABS# 0.3 K/ul 08/20/2017 Cbc With Differential Ord2 Baso ABS# 0.0 K/ul 08/20/2017 Tsh Ord6 hTSH II 2.27 uIU/mL 08/20/2017 Comp Metabolic [id number] NA 138 mEq/L 08/20/2017 Comp Metabolic Php227 K 4.3 mEq/L 08/20/2017 Comp Metabolic Wkx546 CL 102 mEq/L 08/20/2017 Comp Metabolic Vjk445 CO2 29.0 mEq/L 08/20/2017 Comp Metabolic Srh699 AN ION GAP 11 08/20/2017 Comp Metabolic Qkk927 GL UCOSE 89 mg/dL 08/20/2017 Comp Metabolic Zdq196 Cr eat 1.0 mg/dL 08/20/2017 Comp Metabolic Guc324 eG FR 80 ml/min/1.73m2 08/20 Comp Metabolic Lxn171 BUN 13 mg/dL 08/20/2017 Comp Metabolic Afp530 B/ C Ratio 13.5 Ratio 08/20/2017 Comp Metabolic Ywi455 CA LCIUM 9.2 mg/dL 08/20/2017 Comp Metabolic Xvi932 AL K PHOS 69 U/L 08/20/2017 Comp Metabolic Xym242 T(SGOT) 18 U/L 08/20/2017 Comp Metabolic Amp097 AL T(SGPT) 19 U/L 08/20/2017 Comp Metabolic Nlo801 BI LI T 0.6 mg/dL 08/20/2017 Comp Metabolic Bzc711 AL BUMIN 4.0 g/dL 08/20/2017 Comp Metabolic Bot791 TP RO 6.6 g/dL 08/20/2017 Comp Metabolic Xae265 GL OB 2.6 g/dL 08/20/2017 Comp Metabolic Qid379 A/ G Ratio 1.5 Ratio 08/20/2017 Comp Metabolic Tzq542 Os mo 275 mOsmo 08/20/2017 Vitamin D 25 Oh Hqm7333 VITAMIN D, 25 HYDROXY 30.96 ng/mL 08/20/2017 B12 Siz892 B12 >1500.00 pg/ml 02/22/2017 Cbc With Differential [...] 35.7 pg 02/20/2017 Cbc With Differential Ord2 Mcmullen% 6.3 % 02/20/2017 Cbc With Differential Ord2 [...] 3.19 K/ul 02/20/2017 Cbc With Differential Ord2 Mcmullen ABS# 0.5 K/ul 02/20/2017 Cbc With Differential Ord2 Eos ABS# 0.4 K/ul 02/20/2017 Cbc With Differential Ord2 Baso ABS# 0.0 K/ul 02/20/2017 Comp Metabolic Yzb966 NA 138 mEq/L 02/20/2017 Comp Metabolic Trn652 K 4.5 mEq/L 02/20/2017 Comp Metabolic Ytg818 CL 101 mEq/L 02/20/2017 Comp Metabolic Lho091 CO2 31.0 mEq/L 02/20/2017 Comp Metabolic Ryv374 AN ION GAP 11 02/20/2017 Comp Metabolic Qeg769 GL UCOSE 120 mg/dL 02/20/2017 Comp Metabolic Ryg115 Cr eat 0.9 mg/dL 02/20/2017 Comp Metabolic Wif882 eG FR 83 ml/min/1.73m2 02/20 Comp Metabolic Apa519 BUN 15 mg/dL 02/20/2017 Comp Metabolic Ijb610 B/ C Ratio 16.1 Ratio 02/20/2017 Comp Metabolic Kfv457 CA LCIUM 9.1 mg/dL 02/20/2017 Comp Metabolic Mlr066 AL K PHOS 67 U/L 02/20/2017 Comp Metabolic Emq196 T(SGOT) 15 U/L 02/20/2017 Comp Metabolic Qns071 AL T(SGPT) 16 U/L 02/20/2017 Comp Metabolic Hyf212 BI LI T 0.5 mg/dL 02/20/2017 Comp Metabolic Ahk397 AL BUMIN 4.0 g/dL 02/20/2017 Comp Metabolic Mrg862 TP RO 6.4 g/dL 02/20/2017 Comp Metabolic Nqk945 GL OB 2.4 g/dL 02/20/2017 Comp Metabolic Kcm546 A/ G Ratio 1.7 Ratio 02/20/2017 Comp Metabolic Ana778 Os mo 278 mOsmo 02/20/2017 Tsh Ord6 hTSH II 2.05 uIU/mL 02/20/2017 %Hba1C Pgv418 % HbA1c 66103-8 7.6 % 02/20/2017 %Hba1C Bqe570 Gluc Ave 171 mg/dL 02/20/2017 Vitamin D 25 Oh Hti6023 VITAMIN D, 25 HYDROXY 44.40 ng/mL 12/21/2016 Comp Metabolic Owi205 NA 131 mEq/L 12/21/2016 Comp Metabolic Ptr670 K 4.2 mEq/L 12/21/2016 Comp Metabolic Fsi373 CL 97 mEq/L 12/21/2016 Comp Metabolic Jcj064 CO2 27.0 mEq/L 12/21/2016 Comp Metabolic Wur583 AN ION GAP 11 12/21/2016 Comp Metabolic Dle148 GL UCOSE 266 mg/dL 12/21/2016 Comp Metabolic Jhv918 Cr eat 0.9 mg/dL 12/21/2016 Comp Metabolic Nco776 eG FR 88 ml/min/1.73m2 12/21 Comp Metabolic Exc008 BUN 12 mg/dL 12/21/2016 Comp Metabolic Wvv774 B/ C Ratio 13.6 Ratio 12/21/2016 Comp Metabolic Frt198 CA LCIUM 8.6 mg/dL 12/21/2016 Comp Metabolic Ymg854 AL K PHOS 69 U/L 12/21/2016 Comp Metabolic Ymu391 T(SGOT) 15 U/L 12/21/2016 Comp Metabolic Izm996 AL T(SGPT) 14 U/L 12/21/2016 Comp Metabolic Hei780 BI LI T 0.3 mg/dL 12/21/2016 Comp Metabolic Mjb370 AL BUMIN 3.7 g/dL 12/21/2016 Comp Metabolic Jsg154 TP RO 5.9 g/dL 12/21/2016 Comp Metabolic Xeq299 GL OB 2.2 g/dL 12/21/2016 Comp Metabolic Pza285 A/ G Ratio 1.7 Ratio 12/21/2016 Comp Metabolic Bhe938 Os mo 272 mOsmo 12/21/2016 Cbc With [...] 34.6 pg 12/21/2016 Cbc With Differential Ord2 Mcmullen% 6.9 % 12/21/2016 Cbc With Differential Ord2 [...] 2.05 K/ul 12/21/2016 Cbc With Differential Ord2 Mcmullen ABS# 0.4 K/ul 12/21/2016 Cbc With Differential Ord2 Eos ABS# 0.2 K/ul 12/21/2016 Cbc With Differential Ord2 Baso ABS# 0.0 K/ul 12/21/2016 Comp Metabolic Pss961 NA 138 mEq/L 09/03/2016 Comp Metabolic Zui581 K 4.5 mEq/L 09/03/2016 Comp Metabolic Msu773 CL 102 mEq/L 09/03/2016 Comp Metabolic Qvq413 CO2 30.0 mEq/L 09/03/2016 Comp Metabolic Aoe028 AN ION GAP 11 09/03/2016 Comp Metabolic Xow142 GL UCOSE 113 mg/dL 09/03/2016 Comp Metabolic Hsu739 Cr eat 1.0 mg/dL 09/03/2016 Comp Metabolic Yxk668 eG FR 81 ml/min/1.73m2 09/03 Comp Metabolic Xmk955 BUN 10 mg/dL 09/03/2016 Comp Metabolic Myu290 B/ C Ratio 10.5 Ratio 09/03/2016 Comp Metabolic Hqo308 CA LCIUM 9.1 mg/dL 09/03/2016 Comp Metabolic Zru274 AL K PHOS 71 U/L 09/03/2016 Comp Metabolic Poa018 T(SGOT) 18 U/L 09/03/2016 Comp Metabolic Kip911 AL T(SGPT) 17 U/L 09/03/2016 Comp Metabolic Hbo699 BI LI T 0.6 mg/dL 09/03/2016 Comp Metabolic Xjk834 AL BUMIN 4.1 g/dL 09/03/2016 Comp Metabolic Bbc264 TP RO 6.4 g/dL 09/03/2016 Comp Metabolic Dhd774 GL OB 2.3 g/dL 09/03/2016 Comp Metabolic Kyq549 A/ G Ratio 1.8 Ratio 09/03/2016 Comp Metabolic Obr421 Os mo 276 mOsmo 09/03/2016 Vitamin D 25 Oh Xru8506 VITAMIN D, 25 HYDROXY 28.23 ng/mL 09/03/2016 Tsh Ord6 hTSH II 4.12 uIU/mL 09/03/2016 Cbc With Differential Ord2 WBC 8.06 K/ul 09/03/2016 Cbc With Differential Ord2 RBC 3.66 M/ul 09/03/2016 Cbc With Differential Ord2 HGB 12.6 g/dl 09/03/2016 Cbc With Differential Ord2 HCT 37.3 % 09/03/2016 Cbc With Differential Ord2 Neut% 44.6 % 09/03/2016 Cbc With Differential Ord2 Lymph% 41.4 % 09/03/2016 Cbc With Differential Ord2 MCV 101.9 fl 09/03/2016 Cbc With Differential Ord2 Mcmullen% 8.9 % 09/03/2016 Cbc With Differential Ord2 [...] 3.34 K/ul 09/03/2016 Cbc With Differential Ord2 Mcmullen ABS# 0.7 K/ul 09/03/2016 Cbc With Differential Ord2 Eos ABS# 0.4 K/ul 09/03/2016 Cbc With Differential Ord2 Baso ABS# 0.0 K/ul 09/03/2016 Lipid Ord30 CHOL 120 mg/dL 09/03/2016 Lipid Ord30 HDL 33.0 mg/dl 09/03/2016 Lipid Ord30 TRIG 161 mg/dL 09/03/2016 Lipid Ord30 LDL 55 mg/dL 09/03/2016 Lipid Ord30 C/HDL 3.6 Ratio 09/03/2016 %Hba1C Bdb053 % HbA1c 34614-8 7.5 % 09/03/2016 %Hba1C Bcf356 Gluc Ave 169 mg/dL 09/03/2016 Tsh Ord6 hTSH II 1.50 uIU/mL 05/23/2016 %Hba1C Etj906 % HbA1c 83147-9 7.6 % 05/23/2016 %Hba1C Knl251 Gluc Ave 171 mg/dL 05/23/2016 Comp Metabolic Vlc553 NA 135 mEq/L 05/23/2016 Comp Metabolic Vtc146 K 4.4 mEq/L 05/23/2016 Comp Metabolic Baz253 CL 99 mEq/L 05/23/2016 Comp Metabolic Yam720 CO2 28.0 mEq/L 05/23/2016 Comp Metabolic Wex011 AN ION GAP 12 05/23/2016 Comp Metabolic Abd035 GL UCOSE 257 mg/dL 05/23/2016 Comp Metabolic Hjd934 Cr eat 0.8 mg/dL 05/23/2016 Comp Metabolic Cqv114 eG FR 95 ml/min/1.73m2 05/23 Comp Metabolic Bzp252 BUN 11 mg/dL 05/23/2016 Comp Metabolic Xln594 B/ C Ratio 13.3 Ratio 05/23/2016 Comp Metabolic Mls971 CA LCIUM 9.0 mg/dL 05/23/2016 Comp Metabolic Oxz028 AL K PHOS 82 U/L 05/23/2016 Comp Metabolic Bpr445 T(SGOT) 21 U/L 05/23/2016 Comp Metabolic Ood218 AL T(SGPT) 20 U/L 05/23/2016 Comp Metabolic Krt337 BI LI T 0.3 mg/dL 05/23/2016 Comp Metabolic Enu827 AL BUMIN 4.0 g/dL 05/23/2016 Comp Metabolic Pmf113 TP RO 6.4 g/dL 05/23/2016 Comp Metabolic Jep023 GL OB 2.4 g/dL 05/23/2016 Comp Metabolic Xrg899 A/ G Ratio 1.6 Ratio 05/23/2016 Comp Metabolic Ogw595 Os mo 278 mOsmo 05/23/2016 Cbc With [...] 34.5 pg 05/23/2016 Cbc With Differential Ord2 Mcmullen% 6.1 % 05/23/2016 Cbc With Differential Ord2 [...] 2.38 K/ul 05/23/2016 Cbc With Differential Ord2 Mcmullen ABS# 0.4 K/ul 05/23/2016 Cbc With Differential Ord2 Eos ABS# 0.2 K/ul 05/23/2016 Cbc With Differential Ord2 Baso ABS# 0.0 K/ul 05/23/2016 B12 Jan492 B12 597.00 pg/ml 05/23/2016 Metabolic Ord15 NA [...] 0.92 uIU/mL 07/29/2015 Vitamin D 25 Oh Xfb1434 VITAMIN D, 25 HYDROXY 26.93 ng/mL 07/29/2015 %Hba1C Tgb483 % HbA1c 68736-2 8.8 % 07/29/2015 %Hba1C Qwk936 Gluc Ave 206 mg/dL 07/29/2015 Cbc With [...] Ord2 RDW 14.9 % 07/29/2015 Comp Metabolic Ckf196 NA 138 mEq/L 07/29/2015 Comp Metabolic Dgv760 K 4.4 mEq/L 07/29/2015 Comp Metabolic Plj003 CL 102 mEq/L 07/29/2015 Comp Metabolic Skj953 CO2 28.0 mEq/L 07/29/2015 Comp Metabolic Xzc255 AN ION GAP 12 07/29/2015 Comp Metabolic Ijc654 GL UCOSE 261 mg/dL 07/29/2015 Comp Metabolic Ima112 Cr eat 1.0 mg/dL 07/29/2015 Comp Metabolic Mkb260 eG FR 77 ml/min/1.73m2 07/29 Comp Metabolic Jim450 BUN 13 mg/dL 07/29/2015 Comp Metabolic Eac568 B/ C Ratio 13.0 Ratio 07/29/2015 Comp Metabolic Jgc712 CA LCIUM 9.1 mg/dL 07/29/2015 Comp Metabolic Jsb697 AL K PHOS 64 U/L 07/29/2015 Comp Metabolic Vgb934 T(SGOT) 20 U/L 07/29/2015 Comp Metabolic Clp297 AL T(SGPT) 22 U/L 07/29/2015 Comp Metabolic But933 BI LI T 0.4 mg/dL 07/29/2015 Comp Metabolic Xzi230 AL BUMIN 4.0 g/dL 07/29/2015 Comp Metabolic Iub155 TP RO 6.1 g/dL 07/29/2015 Comp Metabolic Nyh872 GL OB 2.1 g/dL 07/29/2015 Comp Metabolic Nrl057 A/ G Ratio 1.9 Ratio 07/29/2015 Comp Metabolic Ybk559 Os mo 285 mOsmo 07/29/2015 Cbc With [...] Ord2 RDW 13.1 % 05/06/2015 Comp Metabolic Hld855 NA 134 mEq/L 05/06/2015 Comp Metabolic Gmp941 K 4.4 mEq/L 05/06/2015 Comp Metabolic Zjp496 CL 98 mEq/L 05/06/2015 Comp Metabolic Bcn247 CO2 29.0 mEq/L 05/06/2015 Comp Metabolic Lgq302 AN ION GAP 11 05/06/2015 Comp Metabolic Jzo958 GL UCOSE 321 mg/dL 05/06/2015 Comp Metabolic Eer043 Cr eat 1.0 mg/dL 05/06/2015 Comp Metabolic Ash866 eG FR 78 ml/min/1.73m2 05/06 Comp Metabolic Cwb903 BUN 20 mg/dL 05/06/2015 Comp Metabolic Xxe404 B/ C Ratio 20.4 Ratio 05/06/2015 Comp Metabolic Qbr278 CA LCIUM 9.5 mg/dL 05/06/2015 Comp Metabolic Obt651 AL K PHOS 62 U/L 05/06/2015 Comp Metabolic Jxc977 T(SGOT) 21 U/L 05/06/2015 Comp Metabolic Nil162 AL T(SGPT) 37 U/L 05/06/2015 Comp Metabolic Vlw245 BI LI T 0.4 mg/dL 05/06/2015 Comp Metabolic Rxc739 AL BUMIN 3.8 g/dL 05/06/2015 Comp Metabolic Ana898 TP RO 6.1 g/dL 05/06/2015 Comp Metabolic Uxr377 GL OB 2.3 g/dL 05/06/2015 Comp Metabolic Xpv500 A/ G Ratio 1.7 Ratio 05/06/2015 Comp Metabolic Vzx259 Os mo 283 mOsmo 05/06/2015 Tsh Ord6 hTSH II 1.65 uIU/mL 02/18/2015 B12 Zxj588 B12 605.00 pg/ml 02/18/2015 %Hba1C Fqt923 % HbA1c 32340-5 8.3 % 02/18/2015 %Hba1C Uhv797 Gluc Ave 192 mg/dL 02/18/2015 Cbc With [...] Ord2 RDW 13.9 % 02/17/2015 Comp Metabolic Sto756 NA 137 mEq/L 02/17/2015 Comp Metabolic Sly455 K 4.4 mEq/L 02/17/2015 Comp Metabolic Anx508 CL 100 mEq/L 02/17/2015 Comp Metabolic Rsc224 CO2 31.0 mEq/L 02/17/2015 Comp Metabolic Cyj174 AN ION GAP 10 02/17/2015 Comp Metabolic Owl751 GL UCOSE 307 mg/dL 02/17/2015 Comp Metabolic Rkw156 Cr eat 1.0 mg/dL 02/17/2015 Comp Metabolic Wqm060 eG FR 74 ml/min/1.73m2 02/17 Comp Metabolic Igo158 BUN 22 mg/dL 02/17/2015 Comp Metabolic Xfr257 B/ C Ratio 21.4 Ratio 02/17/2015 Comp Metabolic Znb914 CA LCIUM 9.5 mg/dL 02/17/2015 Comp Metabolic Cnh530 AL K PHOS 78 U/L 02/17/2015 Comp Metabolic Iaf675 T(SGOT) 18 U/L 02/17/2015 Comp Metabolic Neg531 AL T(SGPT) 32 U/L 02/17/2015 Comp Metabolic Yes110 BI LI T 0.5 mg/dL 02/17/2015 Comp Metabolic Jzr063 AL BUMIN 4.3 g/dL 02/17/2015 Comp Metabolic Jqf267 TP RO 6.7 g/dL 02/17/2015 Comp Metabolic Ftk782 GL OB 2.4 g/dL 02/17/2015 Comp Metabolic Dzj678 A/ G Ratio 1.8 Ratio 02/17/2015 Comp Metabolic Hdf115 Os mo 289 mOsmo 02/17/2015 Review of [...] inspection of skin Location: face 03/07/2015 on church, cheeks,actinic keratosis with irritation on left cheek - left church - croptherapy on these two lesions - [...] Procedure Codes Date THER/PROPH/DIAG INJ SC/IM CPT-4: 24609 06/13/2018 ADMIN INFLUENZA VIRU S VAC CPT-4: G0008 06/06/2018 FLU VACC PRSV FREE I NC ANTIG CPT-4: 44745 06/06/2018 THER/PROPH/DIAG INJ SC/IM CPT-4: 02543 06/05/2018 THER/PROPH/DIAG INJ SC/IM CPT-4: 78978 05/30/2018 THER/PROPH/DIAG INJ SC/IM CPT-4: 33233 05/22/2018 THER/PROPH/DIAG INJ SC/IM CPT-4: 17217 05/12/2018 THER/PROPH/DIAG INJ SC/IM CPT-4: 70457 05/02/2018 THER/PROPH/DIAG INJ SC/IM CPT-4: 51088 04/24/2018 THER/PROPH/DIAG INJ SC/IM CPT-4: 51605 04/17/2018 KETOROLAC TROMETHAMI NE INJ CPT-4: J1885 03/07/2018 URINALYSIS NONAUTO W /O SCOPE CPT-4: 24732 03/07/2018 THER/PROPH/DIAG INJ SC/IM CPT-4: 40042 02/20/2018 TRIAMCINOLONE ACET I [place] NOS CPT-4: J3301 01/30/2018 THER/PROPH/DIAG INJ SC/IM CPT-4: 34304 01/17/2018 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 3-[address]: 943923926 CPT-4: G0436 04/25/2017 ADMIN INFLUENZA VIRU S VAC CPT-4: G0008 04/25/2017 ADMIN PNEUMOCOCCAL V ACCINE SNOMED CT: 20345855 CPT-4: G0009 04/25/2017 PNEUMOCOCCAL VACC [address]: 90563713 CPT-4: 10587 04/25/2017 FLU VACC PRSV FREE I NC ANTIG CPT-4: 88412 04/25/2017 ADMIN INFLUENZA VIRU S VAC CPT-4: G0008 05/22/2016 FLU VACC 4 TELLY 3 YRS PLUS IM Formatting Model/CDA Sections, Assigned to/Angela Clemons SNOMED CT: 37468115 CPT-4: 02478Qycqhhq 05/22/2016 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 3-[address]: 537146048 CPT-4: G0436 11/25/2015 URINALYSIS NONAUTO W /O SCOPE CPT-4: 28638 05/09/2015 TRIAMCINOLONE ACET I [place] NOS CPT-4: J3301 04/12/2015 DESTRUCT PREMALG LESION CPT-4: 69527 03/07/2015 DESTRUCT PREMALG LES 2-14 CPT-4: 43715 03/07/2015 REMOVE IMPACTED EAR WAX UNI CPT-4: 49720 12/31/2014 THER/PROPH/DIAG INJ SC/IM CPT-4: 73772 12/23/2014 TRIAMCINOLONE ACET I [place] NOS CPT-4: J3301 12/23/2014 Vital Signs Date Vital 06/06/2018 Blood Pressure 1: 128/76 Code: 8480-6 BMI: 22.0 Code: 76476-1 Heart Rate 1: 81 bpm Height: 5'11" SpO2: 92% Weight: 158 lbs 04/04/2018 Blood Pressure 1: 124/70 Code: 8480-6 BMI: 20.8 Code: 91353-4 Heart Rate 1: 65 bpm Height: 5'11" SpO2: 95% Weight: 149 lbs 03/07/2018 Blood Pressure 1: 148/70 Code: 8480-6 BMI: 21.2 Code: 50501-2 Heart Rate 1: 66 bpm Height: 5'11" SpO2: 94% Weight: 152 lbs 02/20/2018 Blood Pressure 1: 134/58 Code: 8480-6 BMI: 20.5 Code: 93122-8 Heart Rate 1: 61 bpm Height: 5'11" SpO2: 92% Weight: 147 lbs 01/30/2018 Blood Pressure 1: 158/68 Code: 8480-6 BMI: 21.5 Code: 22545-1 Heart Rate 1: 71 bpm Height: 5'11" SpO2: 92% Weight: 154 lbs 01/14/2018 Blood Pressure 1: 156/70 Code: 8480-6 Height: Weight: 01/13/2018 Blood Pressure 1: 148/62 Code: 8480-6 BMI: 20.9 Code: 30987-3 Heart Rate 1: 54 bpm Height: 5'11" SpO2: 97% Weight: 150 lbs 11/19/2017 Blood Pressure 1: 150/60 Code: 8480-6 BMI: 21.8 Code: 23689-5 Heart Rate 1: 63 bpm Height: 5'11" SpO2: 98% Weight: 156 lbs 10/02/2017 Blood Pressure 1: 168/60 Code: 8480-6 BMI: 21.9 Code: 59698-6 Heart Rate 1: 52 bpm Height: 5'11" SpO2: 97% Weight: 157 lbs 07/23/2017 Blood Pressure 1: 170/70 Code: 8480-6 BMI: 21.8 Code: 79527-2 Heart Rate 1: 65 bpm Height: 5'11" SpO2: 98% Weight: 156 lbs 04/25/2017 Blood Pressure 1: 138/60 Code: 8480-6 BMI: 21.6 Code: 46662-3 Heart Rate 1: 55 bpm Height: 5'11" SpO2: 93% Weight: 155 lbs 02/19/2017 Blood Pressure 1: 138/64 Code: 8480-6 BMI: 21.3 Code: 87401-1 Heart Rate 1: 52 bpm Height: 5'11" SpO2: 96% Weight: 152 lbs 8 oz 01/21/2017 Blood Pressure 1: 160/68 Code: 8480-6 BMI: 21.3 Code: 22823-0 Heart Rate 1: 62 bpm Height: 5'11" SpO2: 96% Weight: 153 lbs 12/20/2016 Blood Pressure 1: 124/66 Code: 8480-6 BMI: 21.5 Code: 02805-9 Height: 5'11" Weight: 154 lbs 08/23/2016 Blood Pressure 1: 142/52 Code: 8480-6 BMI: 21.2 Code: 18348-1 Heart Rate 1: 54 bpm Height: 5'11" SpO2: 96% Weight: 152 lbs 05/22/2016 Blood Pressure 1: 130/76 Code: 8480-6 BMI: 21.5 Code: 04617-1 Heart Rate 1: 78 bpm Height: 5'11" SpO2: 92% Weight: 154 lbs 02/24/2016 Blood Pressure 1: 128/80 Code: 8480-6 BMI: 21.2 Code: 50668-0 Heart Rate 1: 74 bpm Height: 5'11" SpO2: 96% Weight: 152 lbs 01/27/2016 Blood Pressure 1: 144/60 Code: 8480-6 BMI: 21.2 Code: 63631-6 Heart Rate 1: 74 bpm Height: 5'11" SpO2: 97% Weight: 152 lbs 11/25/2015 Blood Pressure 1: 110/52 Code: 8480-6 BMI: 21.9 Code: 73583-0 Heart Rate 1: 65 bpm Height: 5'11" SpO2: 92% Weight: 157 lbs 07/28/2015 Blood Pressure 1: 138/62 Code: 8480-6 BMI: 21.8 Code: 78707-3 Heart Rate 1: 63 bpm Height: 5'11" SpO2: 91% Weight: 156 lbs 05/26/2015 Blood Pressure 1: 120/58 Code: 8480-6 BMI: 21.5 Code: 05042-5 Heart Rate 1: 99 bpm Height: 5'11" SpO2: 96% Weight: 154 lbs 05/06/2015 Blood Pressure 1: 120/58 Code: 8480-6 BMI: 21.2 Code: 35834-5 Heart Rate 1: 66 bpm Height: 5'11" SpO2: 96% Weight: 152 lbs 04/25/2015 Blood Pressure 1: 136/62 Code: 8480-6 BMI: 21.2 Code: 91476-6 Heart Rate 1: 63 bpm Height: 5'11" SpO2: 97% Weight: 152 lbs 04/12/2015 Blood Pressure 1: 160/58 Code: 8480-6 BMI: 21.6 Code: 65252-5 Heart Rate 1: 62 bpm Height: 5'11" Weight: 155 lbs 03/24/2015 Blood Pressure 1: 138/68 Code: 8480-6 BMI: 22.0 Code: 85174-9 Heart Rate 1: 65 bpm Height: 5'11" SpO2: 96% Weight: 158 lbs 03/07/2015 Blood Pressure 1: 116/52 Code: 8480-6 BMI: 22.2 Code: 32344-9 Heart Rate 1: 64 bpm Height: 5'11" SpO2: 97% Weight: 159 lbs 02/17/2015 Blood Pressure 1: 148/58 Code: 8480-6 BMI: 21.3 Code: 46746-3 Heart Rate 1: 63 bpm Height: 5'11" SpO2: 97% Weight: 153 lbs 12/31/2014 Blood Pressure 1: 100/60 Code: 8480-6 BMI: 21.8 Code: 77019-1 Heart Rate 1: 68 bpm Height: 5'11" Weight: 156 lbs 12/23/2014 Blood Pressure 1: 148/64 Code: 8480-6 BMI: 21.9 Code: 78679-1 Heart Rate 1: 64 bpm Height: 5'11" [...] ongoing 03/07/2015 None Hospital Follow Up _ [facility] er: vertigo 03/07/2015 None Hospital [...] Encounters Encounter Performer Loca tion Codes Date ([id number]) [id number] EST. P ATIENT, LEVEL IV Diagnosis: Cellulitis of face[ICD10: L03.211] Diagnosis: Type 2 diabetes mellitus without complications[ICD10: E11.9] Diagnosis: Essential (primary) hypertension[ICD10: I10] Diagnosis: Encounter for immunization[ICD10: Z23] Karmen Ash MD, [facility] CPT-4: 86736 06/06/2018 ([id number]) 07087 EST. 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 P ATIENT, LEVEL III Diagnosis: Low back pain[ICD10: M54.5] Diagnosis: Dysuria[ICD10: R30.0] Karmen Ash MD, [facility] CPT-4: 04138 03/07/2018 ([id number]) 90130 EST. 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 P ATIENT, LEVEL III Diagnosis: Chronic obstructive pulmonary disease with (acute) exacerbation[ICD10: J44.1] Karmen Ash MD, [facility] CPT-4: 91886 01/30/2018 [id number] EST. PATIENT, LEVEL II Diagnosis: Insect bite (nonvenomous), left lower leg, initial encounter[ICD10: S80.862A] Karmen Ash MD, [facility] CPT-4: 00474 01/14/2018 ([id number]) 57992 EST. P ATIENT, LEVEL IV Diagnosis: Type 2 diabetes mellitus with hyperglycemia[ICD10: E11.65] Diagnosis: Chronic obstructive pulmonary disease, unspecified[ICD10: J44.9] Diagnosis: Other fatigue[ICD10: R53.83] Karmen Ash MD, [facility] CPT- 4: 60319 01/13/2018 ([id number]) 82537 EST. P ATIENT, LEVEL IV Diagnosis: Type 2 diabetes mellitus with hyperglycemia[ICD10: E11.65] Diagnosis: Vitamin D deficiency, unspecified[ICD10: E55.9] Diagnosis: Essential (primary) hypertension[ICD10: I10] Diagnosis: Abdominal distension (gaseous)[ICD10: R14.0] Diagnosis: Drug induced constipation[ICD10: K59.03] Karmen Ash MD, [facility] CPT-4: 32632 11/19/2017 34946 EST. PATIENT, LEVEL IV Diagnosis: Low back pain[ICD10: M54.5] Diagnosis: Chronic obstructive pulmonary disease, unspecified[ICD10: J44.9] Brunilda Ash MD, [facility] CPT-4: 45159 10/02/2017 ([id number]) 61735 EST. P ATIENT, LEVEL IV Diagnosis: Essential (primary) hypertension[ICD10: I10] Diagnosis: Type 2 diabetes mellitus with hyperglycemia[ICD10: E11.65] Diagnosis: Vitamin D deficiency, unspecified[ICD10: E55.9] Diagnosis: Mixed hyperlipidemia[ICD10: E78.2] Karmen Ash MD, [facility] CPT-4: 67054 07/23/2017 ([id number]) 08675 EST. P ATIENT, LEVEL IV Diagnosis: Essential (primary) hypertension[ICD10: I10] Diagnosis: Type 2 diabetes mellitus with hyperglycemia[ICD10: E11.65] Diagnosis: Chronic obstructive pulmonary disease, unspecified[ICD10: J44.9] Diagnosis: Nicotine dependence, unspecified, uncomplicated[ICD10: F17.200] Diagnosis: Encounter for immunization[ICD10: Z23] Karmen Ash MD, [facility] CPT-4: 76597 04/25/2017 ([id number]) 46797 EST. P ATIENT, LEVEL IV Diagnosis: Type 2 diabetes mellitus with hyperglycemia[ICD10: E11.65] Diagnosis: Essential (primary) hypertension[ICD10: I10] Diagnosis: Anemia, unspecified[ICD10: D64.9] Karmen Ash MD, [facility] CPT- 4: 68874 02/19/2017 ([id number]) 93901 EST. P ATIENT, LEVEL IV Diagnosis: Slow transit constipation[ICD10: K59.01] Diagnosis: Gastro-esophageal reflux disease without esophagitis[ICD10: K21.9] Diagnosis: Essential (primary) hypertension[ICD10: I10] Karmen Ash MD, [facility] CPT-4: 54743 01/21/2017 ([id number]) 81877 EST. P ATIENT, LEVEL IV Diagnosis: Type 2 diabetes mellitus with hyperglycemia[ICD10: E11.65] Diagnosis: Vitamin D deficiency, unspecified[ICD10: E55.9] Diagnosis: Essential (primary) hypertension[ICD10: I10] Diagnosis: Chronic obstructive pulmonary disease, unspecified[ICD10: J44.9] Karmen Ash MD, [facility] CPT-4: 34955 12/20/2016 ([id number]) 30251 EST. P ATIENT, LEVEL IV Diagnosis: Type 2 diabetes mellitus with hyperglycemia[ICD10: E11.65] Diagnosis: Essential (primary) hypertension[ICD10: I10] Diagnosis: Mixed hyperlipidemia[ICD10: E78.2] Diagnosis: Vitamin D deficiency, unspecified[ICD10: E55.9] Karmen Ash MD, [facility] CPT-4: 22889 08/23/2016 ([id number]) [id number] EST. P ATIENT, LEVEL IV Diagnosis: Type 2 diabetes mellitus with hyperglycemia[ICD10: E11.65] Diagnosis: Essential (primary) hypertension[ICD10: I10] Diagnosis: Chronic obstructive pulmonary disease, unspecified[ICD10: J44.9] Karmen sAh MD, [facility] CPT-4: 43110 05/22/2016 ([id number]) 96751 EST. P ATIENT, LEVEL III Diagnosis: Dysuria[ICD10: R30.0] Diagnosis: Essential (primary) hypertension[ICD10: I10] Karmen Ash MD, [facility] CPT-4: 29039 02/24/2016 ([id number]) 51955 EST. P ATIENT, LEVEL IV Diagnosis: Gastro-esophageal reflux disease without esophagitis[ICD10: K21.9] Diagnosis: Slow transit constipation[ICD10: K59.01] Diagnosis: Type 2 diabetes mellitus with hyperglycemia[ICD10: E11.65] Karmen Ash MD, [facility] CPT-4: 91374 01/27/2016 ([id number]) 59675 EST. P ATIENT, LEVEL IV Diagnosis: Essential (primary) hypertension[ICD10: I10] Diagnosis: Type 2 diabetes mellitus with hyperglycemia[ICD10: E11.65] Diagnosis: Vitamin D deficiency, unspecified[ICD10: E55.9] Diagnosis: Chronic obstructive pulmonary disease, unspecified[ICD10: J44.9] Diagnosis: Mixed hyperlipidemia[ICD10: E78.2] Diagnosis: Tobacco use[ICD10: Z72.0] Karmen Ash MD, [facility] CPT- 4: 64672 11/25/2015 ([id number]) 73424 EST. P ATIENT, LEVEL IV Diagnosis: Type 2 diabetes mellitus with hyperglycemia[ICD10: E11.65] Diagnosis: Essential (primary) hypertension[ICD10: I10] Diagnosis: Vitamin D deficiency, unspecified[ICD10: E55.9] Karmen Ash MD, [facility] CPT-4: 69167 07/28/2015 ([id number]) 14709 EST. P ATIENT, LEVEL III Diagnosis: Type 2 diabetes mellitus with hyperglycemia[ICD10: E11.65] Diagnosis: Essential (primary) hypertension[ICD10: I10] Violeta Ash MD, [facility] CPT-4: 01026 05/26/2015 ([id number]) 01900 EST. P ATIENT, LEVEL III Diagnosis: DIABETES TYPE II[ICD9: 250.00] Diagnosis: COPD (chronic obstructive pulmonary disease)[ICD9: 496] Diagnosis: ESSENTIAL HYPERTENSION[ICD9: 401.9] Diagnosis: Cough[ICD9: 786.2] Violeta Ash MD, [facility] CPT-4: 44501 05/06/2015 ([id number]) 29870 EST. P ATIENT, LEVEL III Diagnosis: COPD (chronic obstructive pulmonary disease)[ICD9: 496] Diagnosis: DIABETES TYPE II[ICD9: 250.00] Diagnosis: Muscle ache[ICD9: 729.1] Karmen Ash MD, [facility] CPT- 4: 93735 04/25/2015 ([id number]) 45770 EST. P ATIENT, LEVEL III Diagnosis: ACTINIC KERATOSIS[ICD9: 702.0] Diagnosis: COPD (chronic obstructive pulmonary disease)[ICD9: 496] Diagnosis: DIABETES TYPE II[ICD9: 250.00] Diagnosis: ACUTE URI[ICD9: 465.9] Violeta Ash MD, [facility] CPT-4: 02879 04/12/2015 ([id number]) 74878 EST. P ATIENT, LEVEL III Diagnosis: DIABETES TYPE II[ICD9: 250.00] Violeta Ash MD, [facility] CPT-4: 72096 03/24/2015 ([id number]) 91759 EST. P ATIENT, LEVEL IV Diagnosis: DIABETES TYPE II[ICD9: 250.00] Diagnosis: Hypoglycemia[ICD9: 251.2] Diagnosis: Skin texture changes[ICD9: 782.8] Violeta Ash MD, [facility] CPT-4: 74975 03/07/2015 ([id number]) 54204 EST. P ATIENT, LEVEL IV Diagnosis: COPD (chronic obstructive pulmonary disease)[ICD9: 496] Diagnosis: Fatigue[ICD9: 780.79] Diagnosis: Insulin dependent diabetes mellitus[ICD9: 250.00] Diagnosis: Unsteady gait[ICD9: 781.2] Maame Ash MD, [facility] CPT-4: 94261 02/17/2015 ([id number]) 44779 EST. P ATIENT, LEVEL IV Diagnosis: BPPV (benign paroxysmal positional vertigo)[ICD9: 386.11] Diagnosis: Impacted cerumen[ICD9: 380.4] Diagnosis: ESSENTIAL HYPERTENSION[ICD9: 401.9] Diagnosis: Insulin dependent diabetes mellitus[ICD9: 250.00] Karmen Ash MD, [facility] CPT-4: 68886 12/23/2014 ([id number]) OFFICE VISI T, NEW - LEVEL 4 Diagnosis: Insulin dependent diabetes mellitus[ICD9: 250.00] Diagnosis: BPPV (benign paroxysmal positional vertigo)[ICD9: 386.11] Diagnosis: COPD (chronic obstructive pulmonary disease)[ICD9: 496] Diagnosis: Tobacco abuse[ICD9: 305.1] Diagnosis: Osteoarthritis[ICD9: 715.90] Karmen Ash MD, [facility] CPT- 4: 96977 12/09/2014 Plan of Care Planned Activity Notes C odes Status Date Patient Education: Patient Medication Summary Completed 06/13/2018 [...] in pain. 06/06/2018 App[facility] [phone] [phone] (15 min) Moderate 06/06/2018 Patient Education: Patient [...] months 04/04/2018 Appointment: Karmen Espinal WPtel: [phone] [phone] (15 min) Moderate 04/04/2018 Patient Education: Patient Medication Summary Completed 04/04/2018 Care Plan: Cbc With Differential Pending 04/04/2018 Care Plan: Testosterone repeat in 2 months Pending 04/04/2018 Appointment: Karmen Espinal WPtel: [phone] [phone] (15 min) Moderate 03/25/2018 Visit Plan: Low back pain -history of kidney stone-UA negative today -increase fluids and call if pain does not resolve or if any worse. 03/07/2018 Appointment: Karmen Espinal WPtel: [phone] [phone] (15 min) Moderate 03/07/2018 Patient Education: Patient [...] 1 month 02/20/2018 Appointment: Karmen Espinal WPtel: [address] [place], [place] [phone] (15 min) Moderate 02/20/2018 Patient Education: Patient Medication Summary Completed 02/20/2018 Visit Plan: COPD EXACERBATION - COLOR TESTER D is a chronic problem for [...] changes. 01/30/2018 Appointment: Karmen Espinal WPtel: [phone] [phone] (15 min) Moderate 01/30/2018 Patient Education: Patient Medication Summary Completed 01/30/2018 Appointment: Karmen Espinal WPtel: [phone] [phone] [place] [address] (15 min) Moderate 01/28/2018 Appointment: [place] 01/17/2018 Patient Education: Patient Medication Summary Completed 01/17/2018 Visit Plan: Cellulitis - start oral antibiotics as directed, return to clinic as previously directed, call for acute change in symptoms, worsening redness, warmth, discharge. 01/14/2018 Appointment: Karmen Espinal WPtel: [phone] [phone] [place] (10 min) Simple 01/14/2018 Patient Education: [...] controlled. 01/13/2018 Appointment: Karmen Espinal WPtel: [phone] [phone] (15 min) Moderate 01/13/2018 Patient Education: Patient Medication Summary Completed 01/13/2018 Referral: Hugo Villatoro HPtel:[phone] [facility] Patient's informed. Referral info ned millergetachew. Completed [...] change in blood pressure readings at home. Ecfqblpb-gwoslw-ioeqa to see Dr Villatoro Constipation-start linzess daily 11/19/2017 Appointment: Karmen Espinal WPtel: [phone] (30 min) Complex 11/19/2017 Patient Education: Patient Medication Summary Completed 11/19/2017 Care Plan: Referral Order bloating, nausea SNOMED-CT : 753205450 Pending 11/19/2017 Visit Plan: Low back pain- [...] changes. 10/02/2017 Appointment: Brun[facility]el[facility] [phone] [facility] (15 min) Moderate 10/02/2017 Patient Education: Patient [...] controlled. 07/23/2017 Appointment: [facility] Espinal WPtel[facility] [phone] [phone] [place] (30 min) Complex 07/23/2017 Patient Education: [...] history 04/25/2017 Appointment: Karmen Espinal WPtel: [phone] [phone] (30 min) Complex 04/25/2017 Patient Education: Patient [...] readings are starting to become less controlled. Xhudui-jzrkdyt-xmuko labs 02/19/2017 Appointment: Karmen Espinal WPtel: [phone] [phone] (30 min) Complex 02/19/2017 Patient Education: Patient [...] month 01/21/2017 Appointment: Karmen Espinal WPtel: [phone] [phone] (30 min) Complex 01/21/2017 Patient Education: Patient Medication Summary Completed 01/21/2017 Patient Education: Smoking and Tobacco Addiction Completed 01/21/2017 Patient Education: Hypertension Completed 01/21/2017 Care Plan: Referral Order SNOMED-CT : 348371833 Pending 01/21/2017 Visit Plan: Diabetes Mellitus - [...] changes. 12/20/2016 Appointment: Karmen Espinal WPtel: [phone] [phone] (30 min) Complex 12/20/2016 Patient Education: Patient Medication Summary Completed 12/20/2016 Patient Education: Smoking and Tobacco Addiction Completed 12/20/2016 Patient Education: Hypertension Completed 12/20/2016 Appointment: Karmen Espinal WPtel: [phone] [phone] (30 min) Complex 09/06/2016 Visit Plan: [...] level 08/23/2016 Appointment: Karmen Espinal WPtel: [phone] [phone] (30 min) Complex 08/23/2016 Patient Education: [...] changes. 05/22/2016 Appointment: Karmen Espinal WPtel: [phone] [phone] (30 min) Complex 05/22/2016 Patient Education: Patient Medication Summary Completed 05/22/2016 Patient Education: Smoking and Tobacco Addiction Completed 05/22/2016 Care Plan: Cbc With Differential Ordered 05/22/2016 Care Plan: %Hba1C KIKI C : 24011-1 Ordered 05/22/2016 Care Plan: Tsh Ordered 05/22/2016 [...] with update 02/24/2016 Appointment: Karmen Espinal WPtel: [phone] (30 min) Complex 02/24/2016 Patient Education: Patient [...] this regimen. 01/27/2016 Appointment: Karmen Espinal WPtel: [phone] (30 min) [facility] 01/27/2016 Patient Education: Patient Medication [...] Completed 05/06/2015 Visit Plan: COPD EXACERBATION - COLOR TESTER D is a chronic problem for [...] POTENTIAL SIDE EFFECTS AND WORSENING OF SYMPTOMS. Nxhauama-jqnaxmbd-FEXI SIMVASTATIN X 2 WEEKS AND CALL WITH [...] Care Plan: COMPLETE CBC AUTOMATED LOINC : 13606-1 Ordered 03/24/2015 Visit Plan: Diabetes Mellitus - [...] removal. 03/07/2015 Appointment: [phone] [facility] (15 min) Moderate 03/07/2015 Patient [...] was removed by the [facility] due to the wax being more [...] Care Plan: COMPLETE CBC AUTOMATED LOINC : 23855-2 Ordered 12/23/2014 Visit Plan: BPPV - Benign [...] next appt 12/09/2014 Appointment: Teddy [facility]en [facility]Ptel[facility] [phone] [phone] [place] ([place]) New Patient 12/09/2014 Patient Education: Patient Medication Summary Completed 12/09/2014 Patient Education: .Amazing charts Parox ysmal positional vertigo Completed 12/09/2014 Patient Education: Smoking and Tobacco Addiction Completed 12/09/2014 Referral: Hugo Villatoro HPtel:[phone] [facility] [place] Referral Appointment Requested Referral: [...] readings are starting to become less controlled. Gljsxd-ucpzqnt-ewwtv labs . Cellulitis - start oral antibiotics [...] change in blood pressure readings at home. Izcfjxgz-qtczin-yfmrh to see Dr Villatoro Constipation-start linzess daily [...] POTENTIAL SIDE EFFECTS AND WORSENING OF SYMPTOMS. Etugzwzw-hunkrfzz-MGRY SIMVASTATIN X 2 WEEKS AND CALL WITH [...]
--- OUTSIDE RECORDS SUMMARY | 2020-03-29 09:49 | XMS REPORT | CCD ---
Author Author Dick Espinal Organization [facility] Address [address] [place] [address] Phone Care Team Providers Care Laboratory Mechanical Technician Name Role Phone PP Unavailable CCM Unavailable Summary Purpose Interface Exchange Insurance Providers Payer name Policy type / Coverage type Covered republican ID Effective Begin Date Effective End Date WPS Medicare Part B Medicare Part B [id number] Unknown Unknown [employer] Medicar e Part B [id number] Unknown Unkn own Family history Father Diagnosis Age At Onset Cancer Unknown Mother Diagnosis Age At Onset Cancer Unknown Social History Social History Element Codes Description Effective Dates Marital status Unknown M arried 12/09/2014 Employment Unknown Retir ed 12/09/[address]: 88084110 Currently smokes tobacco 12/09/2014 Number of years using tobacco Unknown > 50 12/09/2014 Number of cigarettes/day Unknown 30 (Pack and a half) 12/09/[address]: 527182649 Never drinks alcohol 12/09/2014 Allergies, Adverse Reactions, Alerts Substance Reaction Codes Entered Date Inactivated Date Status * OTHER REACTION - S EE ANSWER BOX ceftin- c-dif Unknown No Inactive Date Active * NO KNOWN FOOD TAYLOR RGIES Unknown 12/09/2014 No Inactive Date Active Past Medical History Illness Codes Condition Status Onset Date Resolved Date Dysuria ICD-9: 788.1 ICD-10: R30.0 Active 02/23/2016 Unknown Low back pain ICD-9: 724.2 ICD-10: M54.5 Active 10/02/2017 Unknown Abnormal weight loss ICD-9: 783.21 ICD-10: R63.4 Active 02/20/2018 Unknown Chronic obstructive pulmonary disease, unspecified ICD-9: 496 ICD-10: J44.9 Active 05/21/2016 Unknown Essential (primary) hypertension ICD-9: 401.9 ICD-10: I10 Active 08/22/2016 Unknown Testicular dysfuncti on, unspecified ICD-9: 257.9 ICD-10: E29.9 Active 01/17/2018 Unknown Type 2 diabetes kadi itus with hyperglycemia ICD-9: 250.02 ICD-10: E11.65 Active 02/20/2018 Unknown Type 2 diabetes kadi itus without complications ICD-9: 250.00 ICD-10: E11.9 Active 02/20/2018 Unknown Chronic obstructive pulmonary disease with (acute) [...] ICD-9: 564.01 ICD-10: K59.01 Active 01/26/2016 Unknown Encounter for immuni zation ICD-9: V04.81 ICD-10: Z23 Active 05/21/2016 Unknown Tobacco use ICD-9: 305.1 ICD-10: Z72.0 [...] Condition Codes Effectiv e Dates Condition Status Dysuria ICD-9: 788.1 ICD-10: R30.0 02/23/2016 Active Low back pain ICD-9: 724.2 ICD-10: M54.5 10/02/2017 Active Abnormal weight loss ICD-9: 783.21 ICD-10: R63.4 02/20/2018 Active Chronic obstructive pulmonary disease, unspecified ICD-9: 496 ICD-10: J44.9 05/21/2016 Active Essential (primary) hypertension ICD-9: 401.9 ICD-10: I10 08/22/2016 Active Testicular dysfuncti on, unspecified ICD-9: 257.9 ICD-10: E29.9 01/17/2018 Active Type 2 diabetes kadi itus with hyperglycemia ICD-9: 250.02 ICD-10: E11.65 02/20/2018 Active Type 2 diabetes kadi itus without complications ICD-9: 250.00 ICD-10: E11.9 02/20/2018 Active Chronic obstructive pulmonary disease with (acute) [...] ation ICD-9: 564.01 ICD-10: K59.01 01/26/2016 Active Encounter for immuni zation ICD-9: V04.81 ICD-10: Z23 05/21/2016 Active Tobacco use ICD-9: 305.1 ICD-10: Z72.0 [...] 5 mg-linh taminophen 325 mg tablet RxNorm: 052416 1 Tablet(s) PO Q6-8H as needed 03/19/2018 04/12/2018 Active Flomax 0.4 mg capsule RxNorm: 931541 1 Capsule(s) PO daily 03/10/2018 03/04/2019 Active Urecholine 25 mg tablet RxNorm: 087582 1 Tablet(s) PO BID 03/10/2018 07/07/2018 Active ketorolac 60 mg/2 mL intramuscular solution RxNorm: 1508570 Milliliter(s) IM 03/07/2018 03/07/2018 In active metformin 500 mg tablet RxNorm: 373768 Tablet(s) TAKE 1 TABLET BY MOUTH DAILY 02/20/2018 02/14/2019 Ac tive 1 q am and 1/2 tab q pm hydrocodone 5 mg-lihn taminophen 325 mg tablet RxNorm: 747307 1 Tablet(s) PO Q6-8H as needed 02/20/2018 03/16/2018 Inactive Kenalog 40 mg/mL bartolome pension for injection RxNorm: 6192642 1.5 Milliliter(s) In j 01/30/2018 01/30/2018 In active hydrocodone 5 mg-linh taminophen 325 mg tablet RxNorm: 398464 1 Tablet(s) PO Q6-8H as needed 01/23/2018 02/16/2018 Inactive Urecholine 25 mg tablet RxNorm: 603683 1 Tablet(s) PO BID 01/22/2018 03/09/2018 Inactive Flomax 0.4 mg capsule RxNorm: 986073 1 Capsule(s) PO daily 01/22/2018 03/09/2018 Inactive Flomax 0.4 mg capsule RxNorm: 027006 1 Capsule(s) PO daily 01/22/2018 01/21/2018 Inactive Urecholine 25 mg tablet RxNorm: 237221 1 Tablet(s) PO BID 01/22/2018 01/21/2018 Inactive testosterone cypiona te 200 mg/mL intramuscular oil RxNorm: 466342 1 Milliliter(s) IM monthly 01/17/2018 05/16/2018 Active testosterone cypiona te 200 mg/mL intramuscular oil RxNorm: 384525 Milliliter(s) IM 01/17/2018 01/17/2018 In active lisinopril 10 mg tablet RxNorm: 543690 TAKE 1 TABLET BY MOUTH TWO TIMES DAILY 01/14/2018 01/08/2019 Ac tive - First Attempt Ref: [id number] doxycycline hyclate 100 mg tablet RxNorm: 809321 1 Tablet(s) PO BID 01/14/2018 01/23/2018 Inactive Xanax 0.5 mg tablet RxNorm: 321835 1 Tablet(s) PO TID 01/08/2018 04/07/2018 Active nystatin 100,000 uni t/mL oral suspension RxNorm: 672754 4 Milliliter(s) PO QI D Swish and swallow 01/08/2018 01/07/2018 Inactive nystatin 100,000 uni t/mL oral suspension RxNorm: 210916 4 Milliliter(s) PO QI D Swish and swallow 01/08/2018 01/12/2018 Inactive simvastatin 40 mg ta blet RxNorm: 995660 TAKE 1 TABLET BY MOUT H DAILY AT BEDTIME 12/30/2017 12/24/2018 Ac tive - First Attempt Ref: [id number] metformin 500 mg tablet RxNorm: 604208 TAKE 1 TABLET BY MOUTH DAILY 12/30/2017 02/19/2018 Inactive - First Attempt Ref: [id number] hydrocodone 5 mg-linh taminophen 325 mg tablet RxNorm: 670960 1 Tablet(s) PO Q6-8H as needed 12/25/2017 01/18/2018 Inactive Protonix 40 mg table t,delayed release RxNorm: 731652 Tablet(s) TAKE 1 TABL ET BY MOUTH DAILY 11/20/2017 11/14/2018 Active - Ref: [id number] Linzess 72 mcg capsule RxNorm: 0620010 1 Capsule(s) PO daily 11/19/2017 No Stop Date Active hydrocodone 5 mg-linh taminophen 325 mg tablet RxNorm: 055194 1 Tablet(s) PO Q6-8H as needed 11/19/2017 12/13/2017 Inactive hydrocodone 5 mg-linh taminophen 325 mg tablet RxNorm: 688590 1 Tablet(s) PO Q6-8H as needed 10/28/2017 11/18/2017 Inactive Xanax 0.5 mg tablet RxNorm: 574503 1 Tablet(s) PO TID 10/25/2017 12/22/2017 Inactive Xanax 0.5 mg tablet RxNorm: 885371 TAKE ONE TABLET BY MOUTH THREE TIMES A D AY 10/24/2017 12/22/2017 In active hydrocodone 5 mg-linh taminophen 325 mg tablet RxNorm: 283871 1 Tablet(s) PO Q6-8H as needed 09/30/2017 10/24/2017 Inactive Protonix 40 mg table t,delayed release RxNorm: 804853 TAKE 1 TABLET BY MOUT H DAILY 09/16/2017 11/19/2017 In active - Ref: [id number] Tojanie SoloStar 300 unit/mL (1.5 mL) subcutaneous insulin pen RxNorm: 5076785 35 Unit(s) SQ QHS 08/30/2017 No Stop Date Active dosage increase hydrocodone 5 mg-linh taminophen 325 mg tablet RxNorm: 105601 1 Tablet(s) PO Q6-8H as needed 08/28/2017 09/29/2017 Inactive hydrocodone 5 mg-linh taminophen 325 mg tablet RxNorm: 519577 1 Tablet(s) PO Q6-8H as needed 07/23/2017 08/24/2017 Inactive lisinopril 10 mg tablet RxNorm: 953213 1 Tablet(s) PO BID Take 1 tablet by mout h daily 07/23/2017 01/13/2018 Inactive hydrocodone 5 mg-linh taminophen 325 mg tablet RxNorm: 252820 1 Tablet(s) PO Q6-8H as needed 06/27/2017 07/22/2017 Inactive Xanax 0.5 mg tablet RxNorm: 398522 1 Tablet(s) PO TID 06/18/2017 10/25/2017 Inactive hydrocodone 5 mg-linh taminophen 325 mg tablet RxNorm: 408332 1 Tablet(s) PO Q6-8H as needed 05/27/2017 06/26/2017 Inactive Levaquin 500 mg tablet RxNorm: 896416 1 Tablet(s) PO daily 05/24/2017 05/23/2017 Inactive Levaquin 500 mg tablet RxNorm: 613776 1 Tablet(s) PO daily 05/24/2017 05/30/2017 Inactive Protonix 40 mg table t,delayed release RxNorm: 735272 Take 1 tablet by mout h daily 04/29/2017 09/15/2017 In active - Ref: [id number] hydrocodone 5 mg-linh taminophen 325 mg tablet RxNorm: 095627 1 Tablet(s) PO Q6-8H as needed 04/25/2017 05/26/2017 Inactive metformin 500 mg tablet RxNorm: 690286 Take 1 tablet by mouth daily 04/08/2017 12/29/2017 Inactive - First Attempt Ref: [id number] hydrocodone 5 mg-linh taminophen 325 mg tablet RxNorm: 896501 1 Tablet(s) PO Q6-8H as needed 03/27/2017 04/24/2017 Inactive hydrocodone 5 mg-linh taminophen 325 mg tablet RxNorm: 048708 1 Tablet(s) PO Q6-8H as needed 02/25/2017 03/26/2017 Inactive Protonix 40 mg table t,delayed release RxNorm: 461022 Tablet(s) Take 1 tabl et by mouth BID 02/25/2017 04/28/2017 Inactive Protonix 40 mg table t,delayed release RxNorm: 965772 Tablet(s) Take 1 tabl et by mouth BID 02/19/2017 02/18/2017 Inactive Protonix 40 mg table t,delayed release RxNorm: 265732 Tablet(s) Take 1 tabl et by mouth BID 02/19/2017 02/24/2017 Inactive lisinopril 10 mg tablet RxNorm: 803926 Take 1 tablet by mouth daily 01/29/2017 07/22/2017 Inactive - First Attempt Ref: [id number] hydrocodone 5 mg-linh taminophen 325 mg tablet RxNorm: 539127 1 Tablet(s) PO Q6-8H as needed 01/25/2017 02/24/2017 Inactive simvastatin 40 mg ta blet RxNorm: 618183 Tablet(s) Take 1 tabl et by mouth daily at bedtime 01/03/2017 12/28/2017 Inactive lisinopril 10 mg tablet RxNorm: 671232 Tablet(s) Take 1 tablet by mouth daily 01/03/2017 01/28/2017 In active Protonix 40 mg table t,delayed release RxNorm: 596499 Tablet(s) Take 1 tabl et by mouth daily 12/28/2016 02/18/2017 Inactive hydrocodone 5 mg-linh taminophen 325 mg tablet RxNorm: 113805 1 Tablet(s) PO Q6-8H as needed 12/26/2016 01/24/2017 Inactive Xanax 0.5 mg tablet RxNorm: 417482 1 Tablet(s) PO TID 12/12/2016 03/11/2017 Inactive simvastatin 40 mg ta blet RxNorm: 259206 Tablet(s) Take 1 tabl et by mouth daily at bedtime 11/30/2016 01/02/2017 Inactive simvastatin 40 mg ta blet RxNorm: 751212 Take 1 tablet by mout h daily at bedtime 11/29/2016 11/29/2016 In active - First Attempt Ref: [id number] Protonix 40 mg table t,delayed release RxNorm: 285492 Take 1 tablet by mout h daily 11/27/2016 12/27/2016 In active - First Attempt Ref: [id number] hydrocodone 5 mg-linh taminophen 325 mg tablet RxNorm: 840048 1 Tablet(s) PO Q6-8H as needed 11/26/2016 12/25/2016 Inactive hydrocodone 5 mg-linh taminophen 325 mg tablet RxNorm: 124658 1 Tablet(s) PO Q8 as needed 10/24/2016 11/25/2016 Inactive Xanax 0.5 mg tablet RxNorm: 160508 1 Tablet(s) PO TID 10/09/2016 12/25/2016 Inactive hydrocodone 5 mg-linh taminophen 325 mg tablet RxNorm: 142713 1 Tablet(s) PO Q8 as needed 09/27/2016 10/23/2016 Inactive lisinopril 10 mg tablet RxNorm: 910325 Take 1 tablet by mouth daily 09/25/2016 01/02/2017 Inactive - First Attempt Ref: [id number] Vitamin D2 50,000 un it capsule RxNorm: 829784 1 Capsule(s) PO QW 09/06/2016 No Stop Date Active hydrocodone 5 mg-linh taminophen 325 mg tablet RxNorm: 684061 1 Tablet(s) PO Q8 as needed 08/28/2016 09/26/2016 Inactive Toujeo SoloStar 300 unit/mL (1.5 mL) subcutaneous insulin pen RxNorm: 7562042 25 Unit(s) SQ QHS 08/23/2016 08/29/2017 Inactive dosage increase hydrocodone 5 mg-linh taminophen 325 mg tablet RxNorm: 407978 1 Tablet(s) PO Q8 as needed 07/26/2016 08/27/2016 Inactive Protonix 40 mg table t,delayed release RxNorm: 297537 Take 1 tablet by mout h daily 07/24/2016 11/26/2016 In active - First Attempt Ref: [id number] hydrocodone 5 mg-linh taminophen 325 mg tablet RxNorm: 464803 1 Tablet(s) PO Q8 as needed 06/19/2016 07/21/2016 Inactive Toujeo SoloStar 300 unit/mL (1.5 mL) subcutaneous insulin pen RxNorm: 9317471 32 Unit(s) SQ QHS 05/30/2016 08/22/2016 Inactive dosage increase hydrocodone 5 mg-linh taminophen 325 mg tablet RxNorm: 335535 1 Tablet(s) PO Q8 as needed 05/22/2016 06/18/2016 Inactive hydrocodone 5 mg-linh taminophen 325 mg tablet RxNorm: 365115 1 Tablet(s) PO Q8 as needed 04/18/2016 05/17/2016 Inactive Protonix 40 mg table t,delayed release RxNorm: 294616 Take 1 tablet by mout h daily 04/05/2016 07/03/2016 In active - Ref: [id number] metformin 500 mg tablet RxNorm: 379595 Take 1 tablet by mouth daily 04/04/2016 07/02/2016 Inactive - Ref: [id number] Xanax 0.5 mg tablet RxNorm: 109536 1 Tablet(s) PO TID 03/30/2016 09/25/2016 Inactive Xanax 0.5 mg tablet RxNorm: 056760 1 Tablet(s) PO TID 03/23/2016 12/25/2016 Inactive hydrocodone 5 mg-linh taminophen 325 mg tablet RxNorm: 383622 1 Tablet(s) PO Q8 as needed 03/06/2016 04/04/2016 Inactive Cipro 500 mg tablet RxNorm: 745852 1 Tablet(s) PO BID 02/24/2016 03/04/2016 Inactive Miralax 17 gram oral powder packet RxNorm: 940844 1 packet PO every oth er day 01/27/2016 No Stop Date Active hydrocodone 5 mg-linh taminophen 325 mg tablet RxNorm: 840228 1 Tablet(s) PO Q8 as needed 01/27/2016 02/25/2016 Inactive lisinopril 10 mg tablet RxNorm: 068303 1 Tablet(s) PO daily 01/12/2016 09/24/2016 Inactive simvastatin 40 mg ta blet RxNorm: 862338 1 Tablet(s) PO QHS 01/12/2016 11/28/2016 Inactive simvastatin 40 mg ta blet RxNorm: 509987 1 Tablet(s) PO QHS 01/11/2016 01/11/2016 Inactive lisinopril 10 mg tablet RxNorm: 100780 1 Tablet(s) PO daily 01/06/2016 01/11/2016 Inactive simvastatin 40 mg ta blet RxNorm: 619837 1 Tablet(s) PO daily 12/28/2015 01/10/2016 Inactive hydrocodone 5 mg-linh taminophen 325 mg tablet RxNorm: 814208 1 Tablet(s) PO Q8 as needed 12/27/2015 01/26/2016 Inactive Xanax 0.5 mg tablet RxNorm: 090316 1 Tablet(s) PO TID 11/30/2015 03/29/2016 Inactive meclizine 25 mg tablet RxNorm: 487289 1 Tablet(s) PO Q6 PRN TAKE ONE TABLET BY MOUTH EVERY 6 HOURS NEEDED 11/25/2015 02/22/2016 Inactive Toujeo SoloStar 300 unit/mL (1.5 mL) subcutaneous insulin pen RxNorm: 2370260 30 Unit(s) SQ QHS 11/25/2015 05/29/2016 Inactive dosage increase omeprazole 20 mg cap jacquelyn,delayed release RxNorm: 548376 1 Capsule(s) PO daily 10/06/2015 01/26/2016 In active Toujeo SoloStar 300 unit/mL (1.5 mL) subcutaneous insulin pen RxNorm: 2925423 35 Unit(s) SQ QHS 08/02/2015 11/24/2015 Inactive dosage increase Vitamin D2 50,000 un it capsule RxNorm: 740522 1 Capsule(s) PO QW 08/02/2015 09/05/2016 Inactive hydrocodone 5 mg-linh taminophen 325 mg tablet RxNorm: 490292 1 Tablet(s) PO Q8 as needed 07/11/2015 12/26/2015 Inactive Xanax 0.5 mg tablet RxNorm: 151054 1 Tablet(s) PO TID 06/30/2015 06/29/2015 Inactive Xanax 0.5 mg tablet RxNorm: 994888 1 Tablet(s) PO TID 06/30/2015 12/25/2015 Inactive hydrocodone 5 mg-linh taminophen 325 mg tablet RxNorm: 571429 1 Tablet(s) PO Q8 as needed 05/06/2015 07/10/2015 Inactive Symbicort 160 mcg-4. 5 mcg/actuation HFA aerosol inhaler RxNorm: 9623530 INH 04/25/2015 No Stop Date Active Levemir FlexTouch 10 0 unit/mL (3 mL) subcutaneous insulin pen RxNorm: 662838 30 Unit(s) SQ QHS 04/25/2015 11/24/2015 Inactive prednisone 20 mg tablet RxNorm: 268212 1 Tablet(s) PO BID 04/25/2015 04/29/2015 Inactive metformin 500 mg tablet RxNorm: 553247 1 Tablet(s) PO daily 04/25/2015 04/03/2016 Inactive amoxicillin 500 mg c apsule RxNorm: 806937 1 Capsule(s) PO TID 04/14/2015 04/13/2015 Inactive amoxicillin 500 mg c apsule RxNorm: 371102 1 Capsule(s) PO TID a nd recommend probiotic tid (otc) 04/14/2015 04/20/2015 Inactive Kenalog 40 mg/mL bartolome pension for injection RxNorm: 4987824 Milliliter(s) Inj 04/12/2015 04/12/2015 In active hydrocodone 5 mg-linh taminophen 325 mg tablet RxNorm: 042479 1 Tablet(s) PO Q8 as needed 03/30/2015 05/05/2015 Inactive Lantus 100 unit/mL s ubcutaneous solution RxNorm: 097667 25 Unit(s) SQ QPM 03/24/2015 04/25/2015 In active meclizine 25 mg tablet RxNorm: 285131 Tablet(s) TAKE ONE TABLET BY MOUTH EVERY 6 HOURS NEEDED 03/08/2015 04/06/2015 Inactive meclizine 25 mg tablet RxNorm: 742993 TAKE ONE TABLET BY MOUTH EVERY 6 HOURS A S NEEDED 02/25/2015 03/03/2015 Inactive Lantus 100 unit/mL s ubcutaneous solution RxNorm: 267528 20 Unit(s) SQ QPM 02/23/2015 03/23/2015 In active Lantus 100 unit/mL s ubcutaneous solution RxNorm: 879646 25 Unit(s) SQ QPM 02/23/2015 02/22/2015 In active hydrocodone 5 mg-linh taminophen 325 mg tablet RxNorm: 406655 1 Tablet(s) PO Q8 as needed 02/17/2015 03/29/2015 Inactive Xanax 0.5 mg tablet RxNorm: 658847 1 Tablet(s) PO TID 02/03/2015 06/29/2015 Inactive Lantus 100 unit/mL s ubcutaneous solution RxNorm: 253053 20 Unit(s) SQ QPM 12/29/2014 02/22/2015 In active Phenergan 12.5 mg re ctal suppository RxNorm: 468961 1 Suppository RTL Q6 PRN 12/23/2014 No Stop Date Active nausea Kenalog 40 mg/mL bartolome pension for injection RxNorm: 1494524 Milliliter(s) Inj 12/23/2014 12/23/2014 In active prednisone 20 mg tablet RxNorm: 832185 2 Tablet(s) PO daily 12/13/2014 12/17/2014 Inactive prednisone 20 mg tablet RxNorm: 946579 2 Tablet(s) PO daily 12/13/2014 12/12/2014 Inactive meclizine 25 mg tablet RxNorm: 687364 1 Tablet(s) PO Q6 PRN 12/09/2014 02/24/2015 Inactive hydrocodone 5 mg-linh taminophen 325 mg tablet RxNorm: 744182 1 Tablet(s) PO Q8 as needed 12/09/2014 02/16/2015 Inactive Vitamin B-12 1,000 m cg/mL oral drops RxNorm: 0288080 1 Milliliter(s) PO d aily No Start Date Active Alphagan P 0.1 % eye drops RxNorm: 373476 1 Drop(s) OPH BID No Start Date Active aspirin 325 mg table t,delayed release RxNorm: 432371 1 Tablet(s) PO daily No Start Date Active Tricor 145 mg tablet RxNorm: 189794 1 Tablet(s) PO daily No Start Date Active vitamin B65-hsxurla B1 oral liquid RxNorm: 1,000 Microgram(s) PO daily No Start Date Active atenolol 50 mg tablet RxNorm: 575405 1 Tablet(s) PO daily No Start Date Active Protonix 40 mg table t,delayed release RxNorm: 271249 1 Tablet(s) PO daily No Start Date 04/04/2016 Inactive glipizide 10 mg tablet RxNorm: 739894 1 Tablet(s) PO BID No Start Date 03/22/2015 Inactive Lantus 100 unit/mL s ubcutaneous solution RxNorm: 686602 15 Unit(s) SQ QPM No Start Date 12/28/2014 Inactive lisinopril 10 mg tablet RxNorm: 791304 1 Tablet(s) PO daily No Start Date 01/05/2016 Inactive Vitamin D2 50,000 un it capsule RxNorm: 422284 1 Capsule(s) PO QW No Start Date 08/01/2015 Inactive Toujeo SoloStar 300 unit/mL (1.5 mL) subcutaneous insulin pen RxNorm: 0953558 30 Unit(s) SQ QHS No Start Date 08/01/2015 Inactive simvastatin 40 mg ta blet RxNorm: 813813 1 Tablet(s) PO daily No Start Date 12/27/2015 Inactive testosterone cypiona te 200 mg/mL intramuscular oil RxNorm: 991841 1 Milliliter(s) IM monthly No Start Date 01/16/2018 Inactive hydrocodone 5 mg-linh taminophen 325 mg tablet RxNorm: 537446 1 Tablet(s) PO Q8 as needed No Start Date 12/08/2014 Inactive metformin 500 mg tablet RxNorm: 778529 1 Tablet(s) PO daily No Start Date 04/24/2015 Inactive omeprazole 20 mg cap jacquelyn,delayed release RxNorm: 870423 1 Capsule(s) PO daily No Start Date 10/05/2015 Inactive Flomax 0.4 mg capsule RxNorm: 120625 1 Capsule(s) PO daily No Start Date 03/23/2015 Inactive Medication Administered Medication Codes Instruc tions Start Date Status ketorolac 60 mg/2 mL intramuscular solution RxNorm: 2495679 Milliliter 03/07/2018 No longer Active Kenalog 40 mg/mL suspension for injection RxNorm: 5581940 1.5Milliliter 01/30/2018 No longer Active testosterone cypionate 200 mg/mL intramuscular oil RxNorm: 157311 Milliliter 01/17/2018 No longer Active Kenalog 40 mg/mL suspension for injection RxNorm: 6578489 Milliliter 04/12/2015 No longer Active Kenalog 40 mg/mL suspension for injection RxNorm: 3418858 Milliliter 12/23/2014 No longer Active Immunizations Vaccine Codes Date Status Influenza CVX: 141 04/25 completed Pneumococcal (Adult) CVX: 133 04/25/2017 completed Influenza CVX: 141 05/22 completed Assessments Condition Codes Effectiv e Dates Dysuria ICD-10: R30.0 ICD-9: 788.1 03/07/2018 Low back pain ICD-10: M54.5 ICD-9: 724.2 03/07/2018 Chronic obstructive pulmonary disease, unspecified ICD-10: J44.9 ICD-9: 496 02/20/2018 Testicular dysfunction, unspecified ICD-10: E29.9 ICD-9: 257.9 02/20/2018 Essential (primary) hypertension ICD -10: I10 ICD-9: 401.9 02/20/2018 Abnormal weight loss ICD-10: R63.4 ICD-9: 783.21 02/20/2018 Type 2 diabetes mellitus with hyperglycemia ICD-10: E11.65 ICD-9: 250.02 02/20/2018 Chronic obstructive pulmonary disease wi th [...] without esophagitis ICD-10: K21.9 ICD-9: 530.81 01/21/2017 Encounter for immunization ICD-10: Z 23 ICD-9: V04.81 05/22/2016 Tobacco use ICD-10: Z72.0 ICD-9: 305.1 11/25/2015 [...] Visit Reason For Visit Effective Dates Notes back pain 03/07/2018 diabetes mellitus 02/20/2018 cough [...] Result Date Cbc With Differential Ord2 WBC 9.18 K/ul [...] Differential Ord2 Baso ABS# 0.0 K/ul 04/01/2018 Cbc With Differential Ord2 WBC 12.03 [...] Ord2 Baso ABS# 0.0 K/ul 01/14/2018 Testosterone Lhz093 Testo 135.4 ng/dL 01/14/2018 Vitamin D 25 Oh Rbg5674 VITAMIN D, 25 HYDROXY 43.72 ng/mL 11/20/2017 Cbc With Differential Ord2 WBC 8.14 K/ul 11/20/2017 Cbc With Differential Ord2 RBC 3.38 M/ul 11/20/2017 Cbc With Differential Ord2 HGB 11.9 g/dl 11/20/2017 Cbc With Differential Ord2 HCT 34.9 % 11/20/2017 Cbc With Differential Ord2 Neut% 48.2 % 11/20/2017 Cbc With Differential Ord2 MCV 103.3 fl 11/20/2017 Cbc With Differential Ord2 Lymph% 41.0 % 11/20/2017 Cbc With Differential Ord2 [place]% 7.2 % 11/20/2017 Cbc With Differential Ord2 MCH 35.2 pg 11/20/2017 Cbc With Differential Ord2 MCHC 34.1 [...] Differential Ord2 Baso ABS# 0.0 K/ul 11/20/2017 %Hba1C Azn821 % HbA1c 56896-9 7.4 % 11/20/2017 %Hba1C Dlm699 Gluc Ave 166 mg/dL 11/20/2017 Comp Metabolic Qfx256 NA 134 mEq/L 11/20/2017 Comp Metabolic Hvl561 K 4.4 mEq/L 11/20/2017 Comp Metabolic Yms808 CL 99 mEq/L 11/20/2017 Comp Metabolic Tnn696 CO2 29.0 mEq/L 11/20/2017 Comp Metabolic Rdf224 AN ION GAP 10 11/20/2017 Comp Metabolic Vxw376 GL UCOSE 218 mg/dL 11/20/2017 Comp Metabolic Njc461 Cr eat 1.0 mg/dL 11/20/2017 Comp Metabolic Jnh735 eG FR 78 ml/min/1.73m2 11/20 Comp Metabolic Laa665 BUN 13 mg/dL 11/20/2017 Comp Metabolic Mhx603 B/ C Ratio 13.3 Ratio 11/20/2017 Comp Metabolic Kbo769 CA LCIUM 9.0 mg/dL 11/20/2017 Comp Metabolic Aun947 AL K PHOS 71 U/L 11/20/2017 Comp Metabolic Ujb554 T(SGOT) 18 U/L 11/20/2017 Comp Metabolic Lif681 AL T(SGPT) 17 U/L 11/20/2017 Comp Metabolic Whd429 BI LI T 0.4 mg/dL 11/20/2017 Comp Metabolic Cyt016 AL BUMIN 4.1 g/dL 11/20/2017 Comp Metabolic Fiw581 TP RO 6.5 g/dL 11/20/2017 Comp Metabolic Yrb314 GL OB 2.4 g/dL 11/20/2017 Comp Metabolic Fbr318 A/ G Ratio 1.8 Ratio 11/20/2017 Comp Metabolic Gxi176 Os mo 275 mOsmo 11/20/2017 Lipid Ord30 CHOL 114 mg/dL 08/20/2017 Lipid Ord30 HDL 28.0 mg/dl 08/20/2017 Lipid Ord30 TRIG 153 mg/dL 08/20/2017 Lipid Ord30 LDL 55 mg/dL 08/20/2017 Lipid Ord30 C/HDL 4.1 Ratio 08/20/2017 Tsh Ord6 hTSH II 2.27 uIU/mL 08/20/2017 %Hba1C Wxf078 % HbA1c 21973-0 7.2 % 08/20/2017 %Hba1C Xum371 Gluc Ave 160 mg/dL 08/20/2017 Cbc With Differential Ord2 WBC 8.32 [...] Differential Ord2 Baso ABS# 0.0 K/ul 08/20/2017 Comp Metabolic Jrm554 NA 138 mEq/L 08/20/2017 Comp Metabolic Sjm226 K 4.3 mEq/L 08/20/2017 Comp Metabolic Zth728 CL 102 mEq/L 08/20/2017 Comp Metabolic Ixt471 CO2 29.0 mEq/L 08/20/2017 Comp Metabolic Fsu650 AN ION GAP 11 08/20/2017 Comp Metabolic Ton961 GL UCOSE 89 mg/dL 08/20/2017 Comp Metabolic Voc473 Cr eat 1.0 mg/dL 08/20/2017 Comp Metabolic Pgf886 eG FR 80 ml/min/1.73m2 08/20 Comp Metabolic Ruv856 BUN 13 mg/dL 08/20/2017 Comp Metabolic Klu591 B/ C Ratio 13.5 Ratio 08/20/2017 Comp Metabolic Wku824 CA LCIUM 9.2 mg/dL 08/20/2017 Comp Metabolic Cca129 AL K PHOS 69 U/L 08/20/2017 Comp Metabolic Wkh982 T(SGOT) 18 U/L 08/20/2017 Comp Metabolic Cdl720 AL T(SGPT) 19 U/L 08/20/2017 Comp Metabolic Owu132 BI LI T 0.6 mg/dL 08/20/2017 Comp Metabolic Rma373 AL BUMIN 4.0 g/dL 08/20/2017 Comp Metabolic Dra195 TP RO 6.6 g/dL 08/20/2017 Comp Metabolic Owp267 GL OB 2.6 g/dL 08/20/2017 Comp Metabolic Zxi751 A/ G Ratio 1.5 Ratio 08/20/2017 Comp Metabolic Xhs503 Os mo 275 mOsmo 08/20/2017 Vitamin D 25 Oh Uee8343 VITAMIN D, 25 HYDROXY 30.96 ng/mL 08/20/2017 B12 Owu916 B12 >1500.00 pg/ml 02/22/2017 Comp Metabolic Wck151 NA 138 mEq/L 02/20/2017 Comp Metabolic Kli211 K 4.5 mEq/L 02/20/2017 Comp Metabolic Vvb285 CL 101 mEq/L 02/20/2017 Comp Metabolic Qkc350 CO2 31.0 mEq/L 02/20/2017 Comp Metabolic Ojr147 AN ION GAP 11 02/20/2017 Comp Metabolic Klp968 GL UCOSE 120 mg/dL 02/20/2017 Comp Metabolic Tsr999 Cr eat 0.9 mg/dL 02/20/2017 Comp Metabolic Ekx400 eG FR 83 ml/min/1.73m2 02/20 Comp Metabolic Wuc446 BUN 15 mg/dL 02/20/2017 Comp Metabolic Wkh193 B/ C Ratio 16.1 Ratio 02/20/2017 Comp Metabolic Oyz314 CA LCIUM 9.1 mg/dL 02/20/2017 Comp Metabolic Zfh473 AL K PHOS 67 U/L 02/20/2017 Comp Metabolic Cvq074 T(SGOT) 15 U/L 02/20/2017 Comp Metabolic Bwa894 AL T(SGPT) 16 U/L 02/20/2017 Comp Metabolic Ufl364 BI LI T 0.5 mg/dL 02/20/2017 Comp Metabolic Fsu756 AL BUMIN 4.0 g/dL 02/20/2017 Comp Metabolic Bcl839 TP RO 6.4 g/dL 02/20/2017 Comp Metabolic Fiw112 GL OB 2.4 g/dL 02/20/2017 Comp Metabolic Lhn870 A/ G Ratio 1.7 Ratio 02/20/2017 Comp Metabolic Tgm797 Os mo 278 mOsmo 02/20/2017 Tsh Ord6 hTSH II 2.05 uIU/mL 02/20/2017 Cbc With Differential Ord2 WBC 8.52 K/ul 02/20/2017 Cbc With Differential Ord2 RBC 3.22 M/ul 02/20/2017 Cbc With Differential Ord2 HGB 11.5 g/dl 02/20/2017 Cbc With Differential Ord2 HCT 34.3 % 02/20/2017 Cbc With Differential Ord2 Neut% 51.3 % 02/20/2017 Cbc With Differential Ord2 Lymph% 37.4 % 02/20/2017 Cbc With Differential Ord2 MCV 106.5 fl 02/20/2017 Cbc With Differential Ord2 [place]% 6.3 [...] Differential Ord2 Baso ABS# 0.0 K/ul 02/20/2017 %Hba1C Wre126 % HbA1c 41244-2 7.6 % 02/20/2017 %Hba1C Ttg911 Gluc Ave 171 mg/dL 02/20/2017 Cbc With Differential Ord2 WBC 5.19 K/ul [...] 0.0 K/ul 12/21/2016 Vitamin D 25 Oh [id number] VITAMIN D, 25 HYDROXY 44.40 ng/mL 12/21/2016 Comp Metabolic Nka277 NA 131 mEq/L 12/21/2016 Comp Metabolic Mwk246 K 4.2 mEq/L 12/21/2016 Comp Metabolic Afs140 CL 97 mEq/L 12/21/2016 Comp Metabolic Wff083 CO2 27.0 mEq/L 12/21/2016 Comp Metabolic Xik135 AN ION GAP 11 12/21/2016 Comp Metabolic Cxh596 GL UCOSE 266 mg/dL 12/21/2016 Comp Metabolic Ryt023 Cr eat 0.9 mg/dL 12/21/2016 Comp Metabolic Rjs166 eG FR 88 ml/min/1.73m2 12/21 Comp Metabolic Nwz308 BUN 12 mg/dL 12/21/2016 Comp Metabolic Qeu685 B/ C Ratio 13.6 Ratio 12/21/2016 Comp Metabolic Pil921 CA LCIUM 8.6 mg/dL 12/21/2016 Comp Metabolic Afb795 AL K PHOS 69 U/L 12/21/2016 Comp Metabolic Lau893 T(SGOT) 15 U/L 12/21/2016 Comp Metabolic Qxb880 AL T(SGPT) 14 U/L 12/21/2016 Comp Metabolic Lwb439 BI LI T 0.3 mg/dL 12/21/2016 Comp Metabolic Vcb690 AL BUMIN 3.7 g/dL 12/21/2016 Comp Metabolic Oup640 TP RO 5.9 g/dL 12/21/2016 Comp Metabolic Ivg705 GL OB 2.2 g/dL 12/21/2016 Comp Metabolic Fcu213 A/ G Ratio 1.7 Ratio 12/21/2016 Comp Metabolic Cgq398 Os mo 272 mOsmo 12/21/2016 Vitamin D 25 Oh Phw0345 VITAMIN D, 25 HYDROXY 28.23 ng/mL 09/03/2016 Cbc With Differential Ord2 WBC 8.06 K/ul 09/03/2016 Cbc With Differential Ord2 RBC 3.66 M/ul 09/03/2016 Cbc With Differential Ord2 HGB 12.6 g/dl 09/03/2016 Cbc With Differential Ord2 HCT 37.3 % 09/03/2016 Cbc With Differential Ord2 Neut% 44.6 % 09/03/2016 Cbc With Differential Ord2 Lymph% 41.4 % 09/03/2016 Cbc With Differential Ord2 MCV 101.9 fl 09/03/2016 Cbc With Differential Ord2 [place]% 8.9 [...] Lipid Ord30 C/HDL 3.6 Ratio 09/03/2016 %Hba1C Dra219 % HbA1c 35143-0 7.5 % 09/03/2016 %Hba1C Qdc163 Gluc Ave 169 mg/dL 09/03/2016 Comp Metabolic Diq144 NA 138 mEq/L 09/03/2016 Comp Metabolic Zzx360 K 4.5 mEq/L 09/03/2016 Comp Metabolic Yux647 CL 102 mEq/L 09/03/2016 Comp Metabolic Gda781 CO2 30.0 mEq/L 09/03/2016 Comp Metabolic Jli738 AN ION GAP 11 09/03/2016 Comp Metabolic Rsa574 GL UCOSE 113 mg/dL 09/03/2016 Comp Metabolic Xnt833 Cr eat 1.0 mg/dL 09/03/2016 Comp Metabolic Xlq480 eG FR 81 ml/min/1.73m2 09/03 Comp Metabolic Jgy829 BUN 10 mg/dL 09/03/2016 Comp Metabolic Ubx484 B/ C Ratio 10.5 Ratio 09/03/2016 Comp Metabolic Saz222 CA LCIUM 9.1 mg/dL 09/03/2016 Comp Metabolic Rin312 AL K PHOS 71 U/L 09/03/2016 Comp Metabolic Ddc672 T(SGOT) 18 U/L 09/03/2016 Comp Metabolic Odc239 AL T(SGPT) 17 U/L 09/03/2016 Comp Metabolic Dye553 BI LI T 0.6 mg/dL 09/03/2016 Comp Metabolic Cjs227 AL BUMIN 4.1 g/dL 09/03/2016 Comp Metabolic Ihi127 TP RO 6.4 g/dL 09/03/2016 Comp Metabolic Dpf156 GL OB 2.3 g/dL 09/03/2016 Comp Metabolic Uea327 A/ G Ratio 1.8 Ratio 09/03/2016 Comp Metabolic Dyx080 Os mo 276 mOsmo 09/03/2016 Tsh Ord6 hTSH II 4.12 uIU/mL 09/03/2016 %Hba1C Qdw781 % HbA1c 23471-9 7.6 % 05/23/2016 %Hba1C Ctx788 Gluc Ave 171 mg/dL 05/23/2016 Comp Metabolic Qva530 NA 135 mEq/L 05/23/2016 Comp Metabolic Por890 K 4.4 mEq/L 05/23/2016 Comp Metabolic Zqi673 CL 99 mEq/L 05/23/2016 Comp Metabolic Mjq180 CO2 28.0 mEq/L 05/23/2016 Comp Metabolic Pda268 AN ION GAP 12 05/23/2016 Comp Metabolic Gpi652 GL UCOSE 257 mg/dL 05/23/2016 Comp Metabolic Mmy090 Cr eat 0.8 mg/dL 05/23/2016 Comp Metabolic Tsd049 eG FR 95 ml/min/1.73m2 05/23 Comp Metabolic Vgg592 BUN 11 mg/dL 05/23/2016 Comp Metabolic Say549 B/ C Ratio 13.3 Ratio 05/23/2016 Comp Metabolic Att097 CA LCIUM 9.0 mg/dL 05/23/2016 Comp Metabolic Ncm679 AL K PHOS 82 U/L 05/23/2016 Comp Metabolic Jqu561 T(SGOT) 21 U/L 05/23/2016 Comp Metabolic Slw521 AL T(SGPT) 20 U/L 05/23/2016 Comp Metabolic Bus077 BI LI T 0.3 mg/dL 05/23/2016 Comp Metabolic Pva820 AL BUMIN 4.0 g/dL 05/23/2016 Comp Metabolic Ann000 TP RO 6.4 g/dL 05/23/2016 Comp Metabolic Ooa337 GL OB 2.4 g/dL 05/23/2016 Comp Metabolic Azz277 A/ G Ratio 1.6 Ratio 05/23/2016 Comp Metabolic Zhk579 Os mo 278 mOsmo 05/23/2016 Cbc With [...] Differential Ord2 Baso ABS# 0.0 K/ul 05/23/2016 Tsh Ord6 hTSH II 1.50 uIU/mL 05/23/2016 B12 Yul602 B12 597.00 pg/ml 05/23/2016 Metabolic Ord15 NA [...] 0.92 uIU/mL 07/29/2015 Vitamin D 25 Oh Ynf7554 VITAMIN D, 25 HYDROXY 26.93 ng/mL 07/29/2015 %Hba1C Ftw445 % HbA1c 55997-7 8.8 % 07/29/2015 %Hba1C Dxx396 Gluc Ave 206 mg/dL 07/29/2015 Cbc With [...] Ord2 RDW 14.9 % 07/29/2015 Comp Metabolic Oyx868 NA 138 mEq/L 07/29/2015 Comp Metabolic Feh562 K 4.4 mEq/L 07/29/2015 Comp Metabolic Uyo740 CL 102 mEq/L 07/29/2015 Comp Metabolic Psf751 CO2 28.0 mEq/L 07/29/2015 Comp Metabolic Pbb590 AN ION GAP 12 07/29/2015 Comp Metabolic Pvm633 GL UCOSE 261 mg/dL 07/29/2015 Comp Metabolic Bwi963 Cr eat 1.0 mg/dL 07/29/2015 Comp Metabolic Yha419 eG FR 77 ml/min/1.73m2 07/29 Comp Metabolic Iyr317 BUN 13 mg/dL 07/29/2015 Comp Metabolic Vrt284 B/ C Ratio 13.0 Ratio 07/29/2015 Comp Metabolic Qxg036 CA LCIUM 9.1 mg/dL 07/29/2015 Comp Metabolic Zqu022 AL K PHOS 64 U/L 07/29/2015 Comp Metabolic Zkb832 T(SGOT) 20 U/L 07/29/2015 Comp Metabolic Uus125 AL T(SGPT) 22 U/L 07/29/2015 Comp Metabolic Jat385 BI LI T 0.4 mg/dL 07/29/2015 Comp Metabolic Noj930 AL BUMIN 4.0 g/dL 07/29/2015 Comp Metabolic Tvv058 TP RO 6.1 g/dL 07/29/2015 Comp Metabolic Maa835 GL OB 2.1 g/dL 07/29/2015 Comp Metabolic Qnk394 A/ G Ratio 1.9 Ratio 07/29/2015 Comp Metabolic Dmm515 Os mo 285 mOsmo 07/29/2015 Comp Metabolic Rkj824 NA 134 mEq/L 05/06/2015 Comp Metabolic Hts978 K 4.4 mEq/L 05/06/2015 Comp Metabolic Fqc079 CL 98 mEq/L 05/06/2015 Comp Metabolic Pwi690 CO2 29.0 mEq/L 05/06/2015 Comp Metabolic Lru641 AN ION GAP 11 05/06/2015 Comp Metabolic Ktd465 GL UCOSE 321 mg/dL 05/06/2015 Comp Metabolic Dsw700 Cr eat 1.0 mg/dL 05/06/2015 Comp Metabolic Uoc307 eG FR 78 ml/min/1.73m2 05/06 Comp Metabolic Jbr436 BUN 20 mg/dL 05/06/2015 Comp Metabolic Avd248 B/ C Ratio 20.4 Ratio 05/06/2015 Comp Metabolic Alk645 CA LCIUM 9.5 mg/dL 05/06/2015 Comp Metabolic Qzz061 AL K PHOS 62 U/L 05/06/2015 Comp Metabolic Ime075 T(SGOT) 21 U/L 05/06/2015 Comp Metabolic Aiy047 AL T(SGPT) 37 U/L 05/06/2015 Comp Metabolic Myq951 BI LI T 0.4 mg/dL 05/06/2015 Comp Metabolic Otz694 AL BUMIN 3.8 g/dL 05/06/2015 Comp Metabolic Wqh537 TP RO 6.1 g/dL 05/06/2015 Comp Metabolic Lbv876 GL OB 2.3 g/dL 05/06/2015 Comp Metabolic Ija953 A/ G Ratio 1.7 Ratio 05/06/2015 Comp Metabolic Nev451 Os mo 283 mOsmo 05/06/2015 Cbc With Differential Ord2 WBC 11.7 K/uL [...] With Differential Ord2 RDW 13.1 % 05/06/2015 Tsh Ord6 hTSH II 1.65 uIU/mL 02/18/2015 B12 Rqm910 B12 605.00 pg/ml 02/18/2015 %Hba1C Yrn533 % HbA1c 71646-6 8.3 % 02/18/2015 %Hba1C Xkt571 Gluc Ave 192 mg/dL 02/18/2015 Cbc With [...] Ord2 RDW 13.9 % 02/17/2015 Comp Metabolic Zct591 NA 137 mEq/L 02/17/2015 Comp Metabolic Ktv184 K 4.4 mEq/L 02/17/2015 Comp Metabolic Cdu672 CL 100 mEq/L 02/17/2015 Comp Metabolic Lyw578 CO2 31.0 mEq/L 02/17/2015 Comp Metabolic Jgj821 AN ION GAP 10 02/17/2015 Comp Metabolic Wdu904 GL UCOSE 307 mg/dL 02/17/2015 Comp Metabolic Cev801 Cr eat 1.0 mg/dL 02/17/2015 Comp Metabolic Psd746 eG FR 74 ml/min/1.73m2 02/17 Comp Metabolic Xir885 BUN 22 mg/dL 02/17/2015 Comp Metabolic Pkn419 B/ C Ratio 21.4 Ratio 02/17/2015 Comp Metabolic Mtq607 CA LCIUM 9.5 mg/dL 02/17/2015 Comp Metabolic Orh617 AL K PHOS 78 U/L 02/17/2015 Comp Metabolic Zuo642 T(SGOT) 18 U/L 02/17/2015 Comp Metabolic Tib306 AL T(SGPT) 32 U/L 02/17/2015 Comp Metabolic Pvf235 BI LI T 0.5 mg/dL 02/17/2015 Comp Metabolic Pqi828 AL BUMIN 4.3 g/dL 02/17/2015 Comp Metabolic Nba719 TP RO 6.7 g/dL 02/17/2015 Comp Metabolic Pdo643 GL OB 2.4 g/dL 02/17/2015 Comp Metabolic Hbu730 A/ G Ratio 1.8 Ratio 02/17/2015 Comp Metabolic Odb504 Os mo 289 mOsmo 02/17/2015 Review of Systems System Result Effective Dates Constitutional No recent illness 03/07/2018 Constitutional No [...] accomodation 08/23/2016 None Full Exam - General 1995 [...] clear 08/23/2016 None Full Exam - General 1995 [...] inspection of skin Location: face 03/07/2015 on sikh, cheeks,actinic keratosis with irritation on left cheek - left sikh - croptherapy on these two lesions - [...] intact 12/09/2014 None Procedures Procedure Codes Date KETOROLAC TROMETHAMI NE INJ CPT-4: J1885 03/07/2018 URINALYSIS NONAUTO W /O SCOPE CPT-4: 59275 03/07/2018 THER/PROPH/DIAG INJ SC/IM CPT-4: 90202 02/20/2018 TRIAMCINOLONE ACET I [place] NOS CPT-4: J3301 01/30/2018 THER/PROPH/DIAG INJ SC/IM CPT-4: 84940 01/17/2018 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 3-[address]: 815542054 CPT-4: G0436 04/25/2017 ADMIN INFLUENZA VIRU S VAC CPT-4: G0008 04/25/2017 ADMIN PNEUMOCOCCAL V ACCINE SNOMED CT: 27515813 CPT-4: G0009 04/25/2017 PNEUMOCOCCAL VACC [address]: 35908182 CPT-4: 63546 04/25/2017 FLU VACC PRSV FREE I NC ANTIG CPT-4: 51504 04/25/2017 ADMIN INFLUENZA VIRU S VAC CPT-4: G0008 05/22/2016 FLU VACC 4 TELLY 3 YRS PLUS IM Formatting Model/CDA Sections, Assigned to/Angela lCemons SNOMED CT: 95300279 CPT-4: 04338Zcvxcxx 05/22/2016 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 3-[address]: 926422983 CPT-4: G0436 11/25/2015 URINALYSIS NONAUTO W /O SCOPE CPT-4: 84575 05/09/2015 TRIAMCINOLONE ACET I [place] NOS CPT-4: J3301 04/12/2015 DESTRUCT PREMALG LESION CPT-4: 88054 03/07/2015 DESTRUCT PREMALG LES 2-14 CPT-4: 13530 03/07/2015 REMOVE IMPACTED EAR WAX UNI CPT-4: 12955 12/31/2014 THER/PROPH/DIAG INJ SC/IM CPT-4: 84419 12/23/2014 TRIAMCINOLONE ACET I [place] NOS CPT-4: J3301 12/23/2014 Vital Signs Date Vital 03/07/2018 Blood Pressure 1: 148/70 Code: 8480-6 BMI: 21.2 Code: 68052-8 Heart Rate 1: 66 bpm Height: 5'11" SpO2: 94% Weight: 152 lbs 02/20/2018 Blood Pressure 1: 134/58 Code: 8480-6 BMI: 20.5 Code: 05950-0 Heart Rate 1: 61 bpm Height: 5'11" SpO2: 92% Weight: 147 lbs 01/30/2018 Blood Pressure 1: 158/68 Code: 8480-6 BMI: 21.5 Code: 05664-7 Heart Rate 1: 71 bpm Height: 5'11" SpO2: 92% Weight: 154 lbs 01/14/2018 Blood Pressure 1: 156/70 Code: 8480-6 Height: Weight: 01/13/2018 Blood Pressure 1: 148/62 Code: 8480-6 BMI: 20.9 Code: 20058-5 Heart Rate 1: 54 bpm Height: 5'11" SpO2: 97% Weight: 150 lbs 11/19/2017 Blood Pressure 1: 150/60 Code: 8480-6 BMI: 21.8 Code: 11167-7 Heart Rate 1: 63 bpm Height: 5'11" SpO2: 98% Weight: 156 lbs 10/02/2017 Blood Pressure 1: 168/60 Code: 8480-6 BMI: 21.9 Code: 24639-9 Heart Rate 1: 52 bpm Height: 5'11" SpO2: 97% Weight: 157 lbs 07/23/2017 Blood Pressure 1: 170/70 Code: 8480-6 BMI: 21.8 Code: 55247-4 Heart Rate 1: 65 bpm Height: 5'11" SpO2: 98% Weight: 156 lbs 04/25/2017 Blood Pressure 1: 138/60 Code: 8480-6 BMI: 21.6 Code: 93961-1 Heart Rate 1: 55 bpm Height: 5'11" SpO2: 93% Weight: 155 lbs 02/19/2017 Blood Pressure 1: 138/64 Code: 8480-6 BMI: 21.3 Code: 58053-3 Heart Rate 1: 52 bpm Height: 5'11" SpO2: 96% Weight: 152 lbs 8 oz 01/21/2017 Blood Pressure 1: 160/68 Code: 8480-6 BMI: 21.3 Code: 74976-5 Heart Rate 1: 62 bpm Height: 5'11" SpO2: 96% Weight: 153 lbs 12/20/2016 Blood Pressure 1: 124/66 Code: 8480-6 BMI: 21.5 Code: 26759-1 Height: 5'11" Weight: 154 lbs 08/23/2016 Blood Pressure 1: 142/52 Code: 8480-6 BMI: 21.2 Code: 64588-6 Heart Rate 1: 54 bpm Height: 5'11" SpO2: 96% Weight: 152 lbs 05/22/2016 Blood Pressure 1: 130/76 Code: 8480-6 BMI: 21.5 Code: 91042-6 Heart Rate 1: 78 bpm Height: 5'11" SpO2: 92% Weight: 154 lbs 02/24/2016 Blood Pressure 1: 128/80 Code: 8480-6 BMI: 21.2 Code: 09116-9 Heart Rate 1: 74 bpm Height: 5'11" SpO2: 96% Weight: 152 lbs 01/27/2016 Blood Pressure 1: 144/60 Code: 8480-6 BMI: 21.2 Code: 07342-8 Heart Rate 1: 74 bpm Height: 5'11" SpO2: 97% Weight: 152 lbs 11/25/2015 Blood Pressure 1: 110/52 Code: 8480-6 BMI: 21.9 Code: 29568-3 Heart Rate 1: 65 bpm Height: 5'11" SpO2: 92% Weight: 157 lbs 07/28/2015 Blood Pressure 1: 138/62 Code: 8480-6 BMI: 21.8 Code: 80148-8 Heart Rate 1: 63 bpm Height: 5'11" SpO2: 91% Weight: 156 lbs 05/26/2015 Blood Pressure 1: 120/58 Code: 8480-6 BMI: 21.5 Code: 92483-4 Heart Rate 1: 99 bpm Height: 5'11" SpO2: 96% Weight: 154 lbs 05/06/2015 Blood Pressure 1: 120/58 Code: 8480-6 BMI: 21.2 Code: 35817-0 Heart Rate 1: 66 bpm Height: 5'11" SpO2: 96% Weight: 152 lbs 04/25/2015 Blood Pressure 1: 136/62 Code: 8480-6 BMI: 21.2 Code: 71999-1 Heart Rate 1: 63 bpm Height: 5'11" SpO2: 97% Weight: 152 lbs 04/12/2015 Blood Pressure 1: 160/58 Code: 8480-6 BMI: 21.6 Code: 50468-4 Heart Rate 1: 62 bpm Height: 5'11" Weight: 155 lbs 03/24/2015 Blood Pressure 1: 138/68 Code: 8480-6 BMI: 22.0 Code: 30442-0 Heart Rate 1: 65 bpm Height: 5'11" SpO2: 96% Weight: 158 lbs 03/07/2015 Blood Pressure 1: 116/52 Code: 8480-6 BMI: 22.2 Code: 48374-6 Heart Rate 1: 64 bpm Height: 5'11" SpO2: 97% Weight: 159 lbs 02/17/2015 Blood Pressure 1: 148/58 Code: 8480-6 BMI: 21.3 Code: 61115-3 Heart Rate 1: 63 bpm Height: 5'11" SpO2: 97% Weight: 153 lbs 12/31/2014 Blood Pressure 1: 100/60 Code: 8480-6 BMI: 21.8 Code: 54440-5 Heart Rate 1: 68 bpm Height: 5'11" Weight: 156 lbs 12/23/2014 Blood Pressure 1: 148/64 Code: 8480-6 BMI: 21.9 Code: 72043-3 Heart Rate 1: 64 bpm Height: 5'11" Weight: 157 lbs 12/09/2014 Blood Pressure 1: 152/62 Code: 8480-6 Heart Rate 1: 58 bpm SpO2: 98% Weight: 159 lbs Functional Status No Functional Status data History of Present Illness Symptom Name Status Resu lt Effective Date Notes back pain Location lumba r spine 03/07/2018 [...] daily 11/25/2015 None cough Location in the [facility] 11/25/2015 None cough Quality acute [...] Encounters Encounter Performer Loca tion Codes Date ([id number]) [id number] EST. P ATIENT, LEVEL III Diagnosis: Low back pain[ICD10: M54.5] Diagnosis: Dysuria[ICD10: R30.0] [facility] CPT-4: 14518 03/07/2018 ([id number]) 15203 EST. P ATIENT, LEVEL IV Diagnosis: Essential (primary) hypertension[ICD10: I10] Diagnosis: Chronic obstructive pulmonary disease, unspecified[ICD10: J44.9] Diagnosis: Abnormal weight loss[ICD10: R63.4] Diagnosis: Low back pain[ICD10: M54.5] Diagnosis: Testicular dysfunction, unspecified[ICD10: E29.9] Diagnosis: Type 2 diabetes mellitus with hyperglycemia[ICD10: E11.65] [facility] CPT-4: 94170 02/20/2018 ([id number]) 94793 EST. P ATIENT, LEVEL III Diagnosis: Chronic obstructive pulmonary disease with (acute) exacerbation[ICD10: J44.1] Karmen Ash MD, [facility] CPT-4: 71148 01/30/2018 [id number] EST. PATIENT, LEVEL II Diagnosis: Insect bite (nonvenomous), left lower leg, initial encounter[ICD10: S80.862A] Karmen Ash MD, [facility] CPT-4: 98568 01/14/2018 ([id number]) 01711 EST. P ATIENT, LEVEL IV Diagnosis: Type 2 diabetes mellitus with hyperglycemia[ICD10: E11.65] Diagnosis: Chronic obstructive pulmonary disease, unspecified[ICD10: J44.9] Diagnosis: Other fatigue[ICD10: R53.83] Karmen Ash MD, [facility] CPT- 4: 86891 01/13/2018 ([id number]) 71185 EST. P ATIENT, LEVEL IV Diagnosis: Type 2 diabetes mellitus with hyperglycemia[ICD10: E11.65] Diagnosis: Vitamin D deficiency, unspecified[ICD10: E55.9] Diagnosis: Essential (primary) hypertension[ICD10: I10] Diagnosis: Abdominal distension (gaseous)[ICD10: R14.0] Diagnosis: Drug induced constipation[ICD10: K59.03] Karmen Ash MD, [facility] CPT-4: 54667 11/19/2017 16627 EST. PATIENT, LEVEL IV Diagnosis: Low back pain[ICD10: M54.5] Diagnosis: Chronic obstructive pulmonary disease, unspecified[ICD10: J44.9] Brunilda Ash MD, [facility] CPT-4: 98853 10/02/2017 ([id number]) 59345 EST. P ATIENT, LEVEL IV Diagnosis: Essential (primary) hypertension[ICD10: I10] Diagnosis: Type 2 diabetes mellitus with hyperglycemia[ICD10: E11.65] Diagnosis: Vitamin D deficiency, unspecified[ICD10: E55.9] Diagnosis: Mixed hyperlipidemia[ICD10: E78.2] Karmen Ash MD, [facility] CPT-4: 22845 07/23/2017 ([id number]) 58749 EST. P ATIENT, LEVEL IV Diagnosis: Essential (primary) hypertension[ICD10: I10] Diagnosis: Type 2 diabetes mellitus with hyperglycemia[ICD10: E11.65] Diagnosis: Chronic obstructive pulmonary disease, unspecified[ICD10: J44.9] Diagnosis: Nicotine dependence, unspecified, uncomplicated[ICD10: F17.200] Diagnosis: Encounter for immunization[ICD10: Z23] Karmen Ash MD, [facility] CPT-4: 80195 04/25/2017 ([id number]) 48926 EST. P ATIENT, LEVEL IV Diagnosis: Type 2 diabetes mellitus with hyperglycemia[ICD10: E11.65] Diagnosis: Essential (primary) hypertension[ICD10: I10] Diagnosis: Anemia, unspecified[ICD10: D64.9] Karmen Ash MD, [facility] CPT- 4: 50009 02/19/2017 ([id number]) 44477 EST. P ATIENT, LEVEL IV Diagnosis: Slow transit constipation[ICD10: K59.01] Diagnosis: Gastro-esophageal reflux disease without esophagitis[ICD10: K21.9] Diagnosis: Essential (primary) hypertension[ICD10: I10] Karmen Ash MD, [facility] CPT-4: 10550 01/21/2017 ([id number]) 29510 EST. P ATIENT, LEVEL IV Diagnosis: Type 2 diabetes mellitus with hyperglycemia[ICD10: E11.65] Diagnosis: Vitamin D deficiency, unspecified[ICD10: E55.9] Diagnosis: Essential (primary) hypertension[ICD10: I10] Diagnosis: Chronic obstructive pulmonary disease, unspecified[ICD10: J44.9] Karmen Ash MD, [facility] CPT-4: 95208 12/20/2016 ([id number]) 80469 EST. P ATIENT, LEVEL IV Diagnosis: Type 2 diabetes mellitus with hyperglycemia[ICD10: E11.65] Diagnosis: Essential (primary) hypertension[ICD10: I10] Diagnosis: Mixed hyperlipidemia[ICD10: E78.2] Diagnosis: Vitamin D deficiency, unspecified[ICD10: E55.9] Karmen Ash MD, [facility] CPT-4: 51954 08/23/2016 ([id number]) 75514 EST. P ATIENT, LEVEL IV Diagnosis: Type 2 diabetes mellitus with hyperglycemia[ICD10: E11.65] Diagnosis: Essential (primary) hypertension[ICD10: I10] Diagnosis: Chronic obstructive pulmonary disease, unspecified[ICD10: J44.9] Karmen Ash MD, [facility] CPT-4: 20242 05/22/2016 ([id number]) 52568 EST. P ATIENT, LEVEL III Diagnosis: Dysuria[ICD10: R30.0] Diagnosis: Essential (primary) hypertension[ICD10: I10] Karmen Ash MD, [facility] CPT-4: 10905 02/24/2016 ([id number]) 42599 EST. P ATIENT, LEVEL IV Diagnosis: Gastro-esophageal reflux disease without esophagitis[ICD10: K21.9] Diagnosis: Slow transit constipation[ICD10: K59.01] Diagnosis: Type 2 diabetes mellitus with hyperglycemia[ICD10: E11.65] Karmen Ash MD, [facility] CPT-4: 50991 01/27/2016 ([id number]) 79140 EST. P ATIENT, LEVEL IV Diagnosis: Essential (primary) hypertension[ICD10: I10] Diagnosis: Type 2 diabetes mellitus with hyperglycemia[ICD10: E11.65] Diagnosis: Vitamin D deficiency, unspecified[ICD10: E55.9] Diagnosis: Chronic obstructive pulmonary disease, unspecified[ICD10: J44.9] Diagnosis: Mixed hyperlipidemia[ICD10: E78.2] Diagnosis: Tobacco use[ICD10: Z72.0] Karmen Ash MD, [facility] CPT- 4: 59843 11/25/2015 ([id number]) 15452 EST. P ATIENT, LEVEL IV Diagnosis: Type 2 diabetes mellitus with hyperglycemia[ICD10: E11.65] Diagnosis: Essential (primary) hypertension[ICD10: I10] Diagnosis: Vitamin D deficiency, unspecified[ICD10: E55.9] Karmen Ash MD, [facility] CPT-4: 87989 07/28/2015 ([id number]) 87587 EST. P ATIENT, LEVEL III Diagnosis: Type 2 diabetes mellitus with hyperglycemia[ICD10: E11.65] Diagnosis: Essential (primary) hypertension[ICD10: I10] Violeta Ash MD, [facility] CPT-4: 58299 05/26/2015 ([id number]) 85140 EST. P ATIENT, LEVEL III Diagnosis: DIABETES TYPE II[ICD9: 250.00] Diagnosis: COPD (chronic obstructive pulmonary disease)[ICD9: 496] Diagnosis: ESSENTIAL HYPERTENSION[ICD9: 401.9] Diagnosis: Cough[ICD9: 786.2] Violeta Ash MD, [facility] CPT-4: 56616 05/06/2015 ([id number]) 87045 EST. P ATIENT, LEVEL III Diagnosis: COPD (chronic obstructive pulmonary disease)[ICD9: 496] Diagnosis: DIABETES TYPE II[ICD9: 250.00] Diagnosis: Muscle ache[ICD9: 729.1] Karmen Ash MD, [facility] CPT- 4: 42412 04/25/2015 ([id number]) 72834 EST. P ATIENT, LEVEL III Diagnosis: ACTINIC KERATOSIS[ICD9: 702.0] Diagnosis: COPD (chronic obstructive pulmonary disease)[ICD9: 496] Diagnosis: DIABETES TYPE II[ICD9: 250.00] Diagnosis: ACUTE URI[ICD9: 465.9] Violeta Ash MD, [facility] CPT-4: 53223 04/12/2015 ([id number]) 64912 EST. P ATIENT, LEVEL III Diagnosis: DIABETES TYPE II[ICD9: 250.00] Violeta Ash MD, [facility] CPT-4: 80512 03/24/2015 ([id number]) 48997 EST. P ATIENT, LEVEL IV Diagnosis: DIABETES TYPE II[ICD9: 250.00] Diagnosis: Hypoglycemia[ICD9: 251.2] Diagnosis: Skin texture changes[ICD9: 782.8] Violeta Ash MD, [facility] CPT-4: 04277 03/07/2015 ([id number]) 60271 EST. P ATIENT, LEVEL IV Diagnosis: COPD (chronic obstructive pulmonary disease)[ICD9: 496] Diagnosis: Fatigue[ICD9: 780.79] Diagnosis: Insulin dependent diabetes mellitus[ICD9: 250.00] Diagnosis: Unsteady gait[ICD9: 781.2] Maame Ash MD, [facility] CPT-4: 01421 02/17/2015 ([id number]) 81925 EST. [facility] Diagnosis: BPPV (benign paroxysmal positional vertigo)[ICD9: 386.11] Diagnosis: Impacted cerumen[ICD9: 380.4] Diagnosis: ESSENTIAL HYPERTENSION[ICD9: 401.9] Diagnosis: Insulin dependent diabetes mellitus[ICD9: 250.00] Karmen Ash MD, [facility] CPT-4: 82868 12/23/2014 ([id number]) [facility] - LEVEL 4 Diagnosis: Insulin dependent diabetes mellitus[ICD9: 250.00] Diagnosis: BPPV (benign paroxysmal positional vertigo)[ICD9: 386.11] Diagnosis: COPD (chronic obstructive pulmonary disease)[ICD9: 496] Diagnosis: Tobacco abuse[ICD9: 305.1] Diagnosis: Osteoarthritis[ICD9: 715.90] Karmen Ash MD, [facility] CPT- 4: 57480 12/09/2014 Plan of Care Planned Activity Notes C odes Status Date Appointment: Karmen Espinal WPtel: [facility] [address] (15 min) Moderate 03/25/2018 Visit Plan: Low back pain -history of kidney stone-UA negative today -increase fluids and call if pain does not resolve or if any worse. 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 01/30/2018 Appointment: Karmen Espinal WPtel: [address] [place], [place] [phone] (15 min) Moderate 01/30/2018 Patient Education: Patient Medication Summary Completed 01/30/2018 Appointment: Karmen Espinal WPtel: [address] [place], [place] [id number] [place] [address] (15 min) Moderate 01/28/2018 Appointment: Injection 01/17/2018 Patient Education: Patient Medication Summary Completed 01/17/2018 Visit Plan: Cellulitis - start oral antibiotics as directed, return to clinic as previously directed, call for acute change in symptoms, worsening redness, warmth, discharge. 01/14/2018 Appointment: Karmen Espinal WPtel: [address] [place], [place] [phone] [place] [address] (10 min) Simple 01/14/2018 Patient Education: Patient [...] less controlled. 01/13/2018 Appointment: Karmen Espinal WPtel: [address] [place], [place] [phone] [place] [address] (15 min) Moderate 01/13/2018 Patient Education: Patient Medication Summary Completed 01/13/2018 [phone] Patient's informed. Referral info ned [...] change in blood pressure readings at home. Fbcriyce-omwyqa-etpkb to see Dr Villatoro Constipation-start linzess daily 11/19/2017 App[facility]: [facility] [phone] [phone] (30 min) Complex 11/19/2017 Patient Education: Patient Medication Summary Completed 11/19/2017 Care Plan: Referral Order bloating, nausea SNOMED-CT : 426576884 Pending 11/19/2017 Visit Plan: Low back pain- [...] acute changes. 10/02/2017 Appointment: Brunilda Maravilla [facility] [phone] [phone] (15 min) Moderate 10/02/2017 Patient Education: [...] less controlled. 07/23/2017 Appointment: Karmen Espinal WPtel: [phone] (30 min) Complex 07/23/2017 Patient Education: [...] history 04/25/2017 Appointment: Karmen Espinal WPtel: [phone] [phone] (30 min) Complex 04/25/2017 Patient Education: [...] readings are starting to become less controlled. Kaimef-legganq-dancq labs 02/19/2017 Appointment: Karmen Espinal [facility]el[facility] [phone] [phone] (30 min) Complex 02/19/2017 Patient Education: [...] 01/21/2017 Appointment: Karmen Espinal WPtel: [phone] [phone] (30 min) Complex 01/21/2017 Patient Education: Patient Medication Summary Completed 01/21/2017 Patient Education: Smoking and Tobacco Addiction Completed 01/21/2017 Patient Education: Hypertension Completed 01/21/2017 Care Plan: Referral Order SNOMED-CT : 812948678 Pending 01/21/2017 Visit Plan: Diabetes Mellitus - [...] [facility]Ptel: [phone] [place] (30 min) Complex 12/20/2016 Patient Education: Patient Medication Summary Completed 12/20/2016 Patient Education: Smoking and Tobacco Addiction Completed 12/20/2016 Patient Education: Hypertension Completed 12/20/2016 Appointment: Karmen Espinal WPtel: [phone] (30 min) Complex 09/06/2016 Visit Plan: [...] deficiency-check vitamin d level 08/23/2016 Appointment: Karmen Espinaltel: [address] [place], [place] [phone] (30 min) [facility] 08/23/2016 Patient Education: Patient Medication Summary Completed [...] monitor for acute changes. 05/22/2016 Appointment: Karmen [facility]inaltel[facility] [phone] [phone] (30 min) Complex 05/22/2016 Patient Education: Patient Medication Summary Completed 05/22/2016 Patient Education: Smoking and Tobacco Addiction Completed 05/22/2016 Care Plan: Cbc With Differential Ordered 05/22/2016 Care Plan: %Hba1C KIKI C : 00208-9 Ordered 05/22/2016 Care Plan: Tsh Ordered 05/22/2016 [...] update 02/24/2016 Appointment: Karmen Espinal [facility]Ptel[facility] [phone] [phone] (30 min) Complex 02/24/2016 Patient [...] regimen. 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 Ctirzsyz-ofxxjwje-QQAC SIMVASTATIN X 2 WEEKS AND CALL WITH [...] Care Plan: COMPLETE CBC AUTOMATED LOINC : 81847-3 Ordered 03/24/2015 Visit Plan: Diabetes Mellitus - [...] for removal. 03/07/2015 Appointment: Violeta Ash WPtel: [address] [place], [place] [phone] (15 min) Moderate 03/07/2015 Patient Education: Patient [...] The wax was removed by the [facility] ctitioner due to the wax [...] Care Plan: COMPLETE CBC AUTOMATED LOINC : 60369-4 Ordered 12/23/2014 Visit Plan: BPPV - Benign [...] next appt 12/09/2014 Appointment: Karmen Espinal WPtel: [phone] [place] ([place] New Patient 12/09/2014 Patient Education: Patient Medication Summary Completed 12/09/2014 Patient Education: .Amazing charts Parox ysmal positional vertigo Completed 12/09/2014 Patient Education: Smoking and Tobacco Addiction Completed 12/09/2014 [phone] [id number] [place] Referral Appointment Requested Referral: Luis [...] does not resolve or if any worse. INCREASE LISINOPRIL TO 10MG TWICE DAILY RETURN [...] home. Vitamin D deficiency-check vitamin D level STOP THE GLIPIZIDE CALL IF BLOOD SUGARS [...] smoking. Insulin Dependent Diabetes- Check labs today. HOLD SIMVASTATIN X 2 WEEKS -CALL ME [...] POTENTIAL SIDE EFFECTS AND WORSENING OF SYMPTOMS. Zhtsoixz-iokuayky-CJJN SIMVASTATIN X 2 WEEKS AND CALL WITH UPDATE KENALOG ANORO 1 INHALATION DAILY . COPD [...] change in blood pressure readings at home. Ncgxktet-uifvbl-cbowk to see Dr Villatoro Constipation-start linzess daily . Cerumen Impaction - The impacted cerumen [...] readings are starting to become less controlled. Jwhdko-ghjbosz-jymut labs . COPD -recent pneum onia-symptoms have [...] for acute changes. . Diabetes Mellitus - controlled - per [...] use medication to assist cessation. [facility] Hyper[facility] - pt has been counseled about [...] patient is stable, monitor for acute changes. flu/prevnar . Hypertension - well controlled - [...]
--- OUTSIDE RECORDS SUMMARY | 2020-03-29 09:52 | XMS REPORT | Continuity of Care Document ---
Author Author [facility] Organization [employer] Address Unknown Phone Unavailable Allergies Active Description Code Type Severity Reaction Onset Reported/Identified Relationship to Patient Clinical Status Yes cefuroxime [id number] Drug Allerg y Unknown N/A 03/19/2018 Yes cefuroxime [id number] Drug Allerg y Mild GI UPSET 03/22/2020 Medications There is no data. 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 Ot K92.1 MELENA CORINE PIKE DO Ot Z01.8 12 ENCOUNTER FOR PREPROCEDURAL LABORATORY E CORINE PIKE DO Ot Z01.8 18 ENCOUNTER FOR OTHER PREPROCEDURAL EXAMIN CORINE PIKE DO Ot Z20.8 28 CONTACT W AND EXPOSURE TO OTH VIRAL COMM 07/11/1144 JIGNESH CHEN MD Ot R26 .9 UNSPECIFIED ABNORMALITIES OF GAIT AND MO 07/11/1144 JIGNESH CHEN MD Ot R53 .1 WEAKNESS 06/24/2014 ERWIN CHANG CISCO UNIFIED 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 ENGINEER Ot 272.4 06/24/2014 ERWIN CHANG CISCO UNIFIED 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 ENGINEER Ot 414.00 06/24/2014 ERWIN CHANG CISCO UNIFIED 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 ENGINEER Ot 433.10 08/11/2014 ERWIN CHANG CISCO UNIFIED 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 ENGINEER Ot 272.4 08/11/2014 ERWIN CHANG CISCO UNIFIED 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 ENGINEER Ot 305.1 08/11/2014 ERWIN CHANG CISCO UNIFIED 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 ENGINEER Ot 401.9 08/11/2014 ERWIN CHANG CISCO UNIFIED 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 ENGINEER Ot 414.00 08/11/2014 ERWIN CHANG CISCO UNIFIED 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 ENGINEER Ot 4 96 12/28/2014 KARMEN SU CISCO UNIFIED 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 ENGINEER Ot 250.00 12/28/2014 KARMEN SU CISCO UNIFIED 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 ENGINEER Ot 401.9 12/28/2014 KARMEN SU CISCO UNIFIED 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 ENGINEER Ot 780.4 12/31/2014 OSKARERWIN POTTER CISCO UNIFIED 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 ENGINEER Ot 272.4 12/31/2014 ERWIN CHANG CISCO UNIFIED 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 ENGINEER Ot 414.00 01/04/2015 BAIERWIN POTTER CISCO UNIFIED 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 ENGINEER Ot 272.4 01/04/2015 BAIERWIN POTTER CISCO UNIFIED 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 ENGINEER Ot 414.00 01/21/2015 KARMEN SU CISCO UNIFIED 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 ENGINEER Ot 250.00 01/21/2015 KARMEN SU CISCO UNIFIED 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 ENGINEER Ot 401.9 01/21/2015 KARMEN SU CISCO UNIFIED 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 ENGINEER Ot 780.4 02/02/2015 ERWIN CHANG CISCO UNIFIED 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 ENGINEER Ot 272.4 02/02/2015 ERWIN CHANG CISCO UNIFIED 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 ENGINEER Ot 414.00 02/28/2015 MONSERRAT ADLER DOA K Ot 250.00 DIAB MEGGAN WO COMPL, TYPE II OR UNSPEC TY 02/28/2015 VITOR ALBRIGHT KARMEN Archuleta Ot 272.0 PURE HYPERCHOLESTEROLEM 02/28/2015 VITOR ALBRIGHT KARMEN K Ot 401.9 HYPERTENSION NOS 02/28/2015 VITOR DO KARMEN Geremias Ot 412 OLD MYOCARDIAL INFARCT 02/28/2015 VITOR ALBRIGHT KARMEN K Ot 414.01 CORONARY ATHEROSCLEROSIS OF [place] CORON 02/28/2015 VITOR ALBRIGHT KARMEN K Ot 530.81 ESOPHAGEAL REFLUX 02/28/2015 VITOR ALBRIGHT KARMEN K Ot 780.4 DIZZINESS AND GIDDINESS 02/28/2015 VITOR KARMEN K Ot V45.82 PERCUTANEOUS TRANSLUM CORON ANGIOPLASTY 02/28/2015 VITOR KARMEN K Ot V58.67 LONG-TERM (CURRENT) USE OF INSULIN 03/17/2015 JF CANCINO SUPERVISOR PASTRY Ot 298.9 03/17/2015 JF CANCINO APRN Ot 780.4 03/17/2015 JF CANCINO SUPERVISOR PASTRY Ot 780.79 03/17/2015 JF CANCINO SUPERVISOR PASTRY Ot 781.2 03/23/2015 JAYDE LATHAM, GIRISH Boyer [...] Boyer Ot V74.8 SCREEN-BACTERIAL DIS NEC 05/30/2015 KARMEN SU CISCO UNIFIED 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 ENGINEER Ot 786.2 06/16/[address] [facility], ALI FACP CCDS Ot E78.4 06/16/[address] [facility], ALI FACP CCDS Ot I10 06/16/[address] [facility], ALI FACP CCDS Ot I25.10 06/16/[address] [facility], ALI FACP CCDS Ot J43.8 06/16/[address] [facility], ALI FACP CCDS Ot Z72.0 06/30/[address] [facility], ALI FACP CCDS Ot E78.4 06/30/[address] [facility], ALI FACP CCDS Ot I10 06/30/[address] [facility], ALI FACP CCDS Ot I25.10 06/30/[address] [facility], ALI FACP CCDS Ot J43.8 06/30/[address] [facility], ALI FACP CCDS Ot Z72.0 11/21/2015 JAYDE LATHAM, GIRISH Boyer Ot L98.9 DISORDER OF THE SKIN AND SUBCUTANEOUS TI 11/21/2015 JAYDE LATHAM, GIRISH Boyer Ot Z01.818 ENCOUNTER FOR OTHER PREPROCEDURAL EXAMIN 11/21/2015 GIRISH DONOHUE MD Ot Z11.2 ENCOUNTER FOR SCREENING FOR OTHER BACTER 12/08/2015 KARMEN SU CISCO UNIFIED 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 ENGINEER Ot E11.65 TYPE 2 DIABETES MELLITUS WITH HYPERGLYCE 12/08/2015 KARMEN SU CISCO UNIFIED 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 ENGINEER Ot E55.9 VITAMIN D DEFICIENCY, UNSPECIFIED 12/08/2015 KARMEN SU CISCO UNIFIED 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 ENGINEER Ot E78.2 MIXED HYPERLIPIDEMIA 12/08/2015 KARMEN SU CISCO UNIFIED 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 ENGINEER Ot I10 ESSENTIAL (PRIMARY) HYPERTENSION 12/08/2015 KARMEN SU CISCO UNIFIED 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 ENGINEER Ot J44.9 CHRONIC OBSTRUCTIVE PULMONARY DISEASE, U 12/13/2015 KARMEN SU CISCO UNIFIED 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 ENGINEER Ot E11.65 TYPE 2 DIABETES MELLITUS WITH HYPERGLYCE 12/13/2015 KARMEN SU CISCO UNIFIED 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 ENGINEER Ot E55.9 VITAMIN D DEFICIENCY, UNSPECIFIED 12/13/2015 KARMEN SU CISCO UNIFIED 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 ENGINEER Ot E78.2 MIXED HYPERLIPIDEMIA 12/13/2015 KARMEN SU CISCO UNIFIED 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 ENGINEER Ot I10 ESSENTIAL (PRIMARY) HYPERTENSION 12/13/2015 KARMEN SU CISCO UNIFIED 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 ENGINEER Ot J44.9 CHRONIC OBSTRUCTIVE PULMONARY DISEASE, U 12/15/2015 GIRISH DONOHUE MD Ot 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 12/15/2015 GIRISH DONOHUE MD Ot I1 0 ESSENTIAL (PRIMARY) HYPERTENSION 12/15/2015 GIRISH DONOHUE MD Ot I25.10 ATHSCL HEART DISEASE OF [place] CORONARY 12/15/2015 GIRISH DONOHUE MD Ot J44.9 CHRONIC OBSTRUCTIVE PULMONARY DISEASE, U 12/15/2015 GIRISH DONOHUE MD Ot 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 12/15/2015 GIRISH DONOHUE MD Ot L82.1 OTHER SEBORRHEIC KERATOSIS 12/28/2015 KARMEN SUP Ot E11.65 TYPE 2 DIABETES MELLITUS WITH HYPERGLYCE 12/28/2015 KARMEN SU CISCO UNIFIED 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 ENGINEER Ot E55.9 VITAMIN D DEFICIENCY, UNSPECIFIED 12/28/2015 KARMEN SU CISCO UNIFIED 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 ENGINEER Ot E78.2 MIXED HYPERLIPIDEMIA 12/28/2015 KARMEN SU CISCO UNIFIED 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 ENGINEER Ot I10 ESSENTIAL (PRIMARY) HYPERTENSION 12/28/2015 KARMEN SU Ot J44.9 CHRONIC OBSTRUCTIVE PULMONARY DISEASE, U 01/02/2016 GIRISH DONOHUE MD Ot 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 01/02/2016 GIRISH DONOHUE MD Ot I1 0 ESSENTIAL (PRIMARY) HYPERTENSION 01/02/2016 GIRISH DONOHUE MD Ot I25.10 ATHSCL HEART DISEASE OF [place] CORONARY 01/02/2016 GIRISH DONOHUE MD Ot J44.9 CHRONIC OBSTRUCTIVE PULMONARY DISEASE, U 01/02/2016 GIRISH DONOHUE MD Ot 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 01/02/2016 GIRISH DONOHUE MD Ot L82.1 OTHER SEBORRHEIC KERATOSIS 04/24/2016 Ot 414.01 04/24/2016 Ot V58.61 04/24/2016 Ot 272.4 HYPE RLIPIDEMIA NEC/NOS 04/24/2016 Ot 401.9 HYPE RTENSION NOS 04/24/2016 Ot 414.01 COR ONARY ATHEROSCLEROSIS OF [place] CORON 04/24/2016 Ot V58.69 OTH MED,LT,CURRENT USE 04/24/2016 Ot 272.4 HYPE RLIPIDEMIA NEC/NOS 04/24/2016 Ot 414.00 COR ON ATHEROSCLER NOS TYPE VESSEL, NATIV 04/24/2016 Ot V58.69 OTH MED,LT,CURRENT USE 04/24/2016 Ot 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,OTH ANTER WALL,SUBSEQ 04/24/2016 Ot 414.01 COR ONARY ATHEROSCLEROSIS OF [place] CORON 04/24/2016 Ot V58.69 OTH MED,LT,CURRENT USE 04/24/2016 Ot 272.4 HYPE RLIPIDEMIA NEC/NOS 04/24/2016 Ot 401.9 HYPE RTENSION NOS 04/24/2016 Ot 414.00 COR ON ATHEROSCLER NOS TYPE VESSEL, NATIV 04/24/2016 Ot V58.69 OTH MED,LT,CURRENT USE 04/24/2016 Ot 414.00 COR ON ATHEROSCLER NOS TYPE VESSEL, NATIV 04/24/2016 Ot 414.8 CHR ISCHEMIC HRT DIS NEC 04/24/2016 Ot 786.07 WHE EZING 04/24/2016 Ot 786.2 COUGH 04/24/2016 Ot 272.4 HYPE RLIPIDEMIA NEC/NOS 04/24/2016 Ot 401.9 HYPE RTENSION NOS 04/24/2016 Ot 414.00 COR ON ATHEROSCLER NOS TYPE VESSEL, NATIV 04/24/2016 Ot V58.69 OTH MED,LT,CURRENT USE 04/24/2016 Ot 401.9 HYPE RTENSION NOS 04/24/2016 Ot 414.00 COR ON ATHEROSCLER NOS TYPE VESSEL, NATIV 04/24/2016 Ot V58.69 OTH MED,LT,CURRENT USE 04/24/2016 ALIA LATHAM, TORIE M Ot 724.2 LUMBAGO 04/24/2016 BAIMA, ERWIN L CISCO UNIFIED 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 ENGINEER Ot 272.4 HYPERLIPIDEMIA NEC/NOS 04/24/2016 BAIMA, ERWIN L CISCO UNIFIED 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 ENGINEER Ot 401.9 HYPERTENSION NOS 04/24/2016 BAIMA, ERWIN L CISCO UNIFIED 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 ENGINEER Ot 414.00 CORON ATHEROSCLER NOS TYPE VESSEL, NATIV 04/24/2016 BAIMA, ERWIN L CISCO UNIFIED 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 ENGINEER Ot 272.4 HYPERLIPIDEMIA NEC/NOS 04/24/2016 BAIMA, ERWIN L CISCO UNIFIED 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 ENGINEER Ot 401.9 HYPERTENSION NOS 04/24/2016 BAIMA, ERWIN L CISCO UNIFIED 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 ENGINEER Ot 414.00 CORON ATHEROSCLER NOS TYPE VESSEL, NATIV 04/24/2016 BAIMA, ERWIN L CISCO UNIFIED 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 ENGINEER Ot 414.8 CHR ISCHEMIC HRT DIS NEC 04/24/2016 ALIA LATHAM, TORIE Boyer Ot 786.2 COUGH 04/24/2016 TORIE ROJO MD Ot 786.7 ABNORMAL CHEST SOUNDS 04/24/2016 BAIMA, ERWIN L CISCO UNIFIED 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 ENGINEER Ot 272.4 HYPERLIPIDEMIA NEC/NOS 04/24/2016 BAIMA, ERWIN L CISCO UNIFIED 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 ENGINEER Ot 414.00 CORON ATHEROSCLER NOS TYPE VESSEL, NATIV 04/24/2016 BAIMA, ERWIN L CISCO UNIFIED 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 ENGINEER Ot 433.10 CAROTID ARTERY OCCLUSION W O CEREBRAL IN 04/24/2016 BAIMA, ERWIN L CISCO UNIFIED 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 ENGINEER Ot 272.4 HYPERLIPIDEMIA NEC/NOS 04/24/2016 BAIMA, ERWIN L CISCO UNIFIED 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 ENGINEER Ot 305.1 TOBACCO USE DISORDER 04/24/2016 BAIMA, ERWIN L CISCO UNIFIED 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 ENGINEER Ot 401.9 HYPERTENSION NOS 04/24/2016 BAIMA, ERWIN L CISCO UNIFIED 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 ENGINEER Ot 414.00 CORON ATHEROSCLER NOS TYPE VESSEL, NATIV 04/24/2016 BAIMA, ERWIN L CISCO UNIFIED 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 ENGINEER Ot 4 96 CHR AIRWAY OBSTRUCT NEC 04/24/2016 KARMEN SU CISCO UNIFIED 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 ENGINEER Ot 250.00 DIAB MEGGAN WO COMPL, TYPE II OR UNSPEC TY 04/24/2016 KARMEN SU CISCO UNIFIED 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 ENGINEER Ot 401.9 HYPERTENSION NOS 04/24/2016 KARMEN SU CISCO UNIFIED 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 ENGINEER Ot 780.4 DIZZINESS AND GIDDINESS 04/24/2016 BAIMA, ERWIN L CISCO UNIFIED 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 ENGINEER Ot 272.4 HYPERLIPIDEMIA NEC/NOS 04/24/2016 BAIMA, ERWIN L CISCO UNIFIED 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 ENGINEER Ot 414.00 CORON ATHEROSCLER NOS TYPE VESSEL, NATIV 04/24/2016 JF CANCINO SUPERVISOR PASTRY Ot 298.9 PSYCHOSIS NOS 04/24/2016 JF CANCINO SUPERVISOR PASTRY Ot 780.4 DIZZINESS AND GIDDINESS 04/24/2016 JF CANCINO SUPERVISOR PASTRY Ot 780.79 OTH MALAISE FATIGUE 04/24/2016 JF CANCINO SUPERVISOR PASTRY Ot 781.2 ABNORMALITY OF GAIT 04/24/2016 JAYDE LATHAM, GIRISH Boyer Ot 709.9 SKIN DISORDER NOS 04/24/2016 JAYDE LATHAM, GIRISH Boyer Ot V72.84 EXAM PRE-OPERATIVE NOS 04/24/2016 KARMEN SU CISCO UNIFIED 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 ENGINEER Ot 786.2 COUGH 04/24/[address] [facility], ALI FACP CCDS Ot E78.4 OTHER HYPERLIPIDEMIA 04/24/2016 OSCAR CONTRERAS, ALI FACP CCDS Ot I10 ESSENTIAL (PRIMARY) HYPERTENSION 04/24/[address] [facility], ALI FACP CCDS Ot I25.10 ATHSCL HEART DISEASE OF [place] CORONARY 04/24/[address] 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 04/24/2016 GIRISH DONOHUE MD Ot I1 0 ESSENTIAL (PRIMARY) HYPERTENSION 04/24/2016 GIRISH DONOHUE MD Ot I25.10 ATHSCL HEART DISEASE OF [place] CORONARY 04/24/2016 GIRISH DONOHUE MD Ot J44.9 CHRONIC OBSTRUCTIVE PULMONARY DISEASE, U 04/24/2016 GIRISH DONOHUE MD Ot 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 04/24/2016 GIRISH DONOHUE MD Ot L82.1 OTHER SEBORRHEIC KERATOSIS 04/24/2016 KARMEN SUP Ot E11.65 TYPE 2 DIABETES MELLITUS WITH HYPERGLYCE 04/24/2016 KARMEN SUP Ot E55.9 VITAMIN D DEFICIENCY, UNSPECIFIED 04/24/2016 KARMEN SUP Ot E78.2 MIXED HYPERLIPIDEMIA 04/24/2016 KARMEN SU CISCO UNIFIED 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 ENGINEER Ot I10 ESSENTIAL (PRIMARY) HYPERTENSION 04/24/2016 KARMEN SU CISCO UNIFIED 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 ENGINEER Ot J44.9 CHRONIC OBSTRUCTIVE PULMONARY DISEASE, U 04/24/2016 ERWIN CHANG CISCO UNIFIED 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 ENGINEER Ot E78.4 OTHER HYPERLIPIDEMIA 04/24/2016 ERWIN CHANG CISCO UNIFIED 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 ENGINEER Ot I 10 ESSENTIAL (PRIMARY) HYPERTENSION 04/24/2016 ERWIN CHANG CISCO UNIFIED 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 ENGINEER Ot I25.10 ATHSCL HEART DISEASE OF [place] CORONARY 04/24/2016 ERWIN CHANG CISCO UNIFIED 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 ENGINEER Ot 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 04/25/2016 BAIMA, ERWIN L CISCO UNIFIED 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 ENGINEER Ot E78.4 OTHER HYPERLIPIDEMIA 04/25/2016 BAIMA, ERWIN L CISCO UNIFIED 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 ENGINEER Ot I 10 ESSENTIAL (PRIMARY) HYPERTENSION 04/25/2016 BAIMA, ERWIN L CISCO UNIFIED 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 ENGINEER Ot I25.10 ATHSCL HEART DISEASE OF [place] CORONARY 04/25/2016 BAIMA, ERWIN L CISCO UNIFIED 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 ENGINEER Ot 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 05/14/2016 BAIMA, ERWIN L CISCO UNIFIED 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 ENGINEER Ot E78.4 OTHER HYPERLIPIDEMIA 05/14/2016 BAIMA, ERWIN L CISCO UNIFIED 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 ENGINEER Ot I 10 ESSENTIAL (PRIMARY) HYPERTENSION 05/14/2016 BAIMA, ERWIN L CISCO UNIFIED 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 ENGINEER Ot I25.10 ATHSCL HEART DISEASE OF [place] CORONARY 05/14/2016 BAIMA, ERWIN L CISCO UNIFIED 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 ENGINEER Ot 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 05/16/2016 BAIMA, ERWIN L CISCO UNIFIED 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 ENGINEER Ot E78.4 OTHER HYPERLIPIDEMIA 05/16/2016 BAIMA, ERWIN L CISCO UNIFIED 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 ENGINEER Ot I 10 ESSENTIAL (PRIMARY) HYPERTENSION 05/16/2016 BAIMA, ERWIN L CISCO UNIFIED 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 ENGINEER Ot I25.10 ATHSCL HEART DISEASE OF [place] CORONARY 05/16/2016 BAIMA, ERWIN L CISCO UNIFIED 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 ENGINEER Ot I65.23 OCCLUSION AND STENOSIS OF BILATERAL [...] 414.01 02/04/2017 Ot V58.61 02/04/2017 Ot 272.4 HYPE RLIPIDEMIA NEC/NOS 02/04/2017 Ot 401.9 HYPE RTENSION NOS 02/04/2017 Ot 414.00 COR ON ATHEROSCLER NOS TYPE VESSEL, NATIV 02/04/2017 Ot V58.69 OTH MED,LT,CURRENT USE 02/04/2017 Ot 414.00 COR ON ATHEROSCLER NOS TYPE VESSEL, NATIV 02/04/2017 Ot 414.8 CHR ISCHEMIC HRT DIS NEC 02/04/2017 Ot 786.07 WHE EZING 02/04/2017 Ot 786.2 COUGH 02/04/2017 Ot 272.4 HYPE RLIPIDEMIA NEC/NOS 02/04/2017 Ot 401.9 HYPE RTENSION NOS 02/04/2017 Ot 414.00 COR ON ATHEROSCLER NOS TYPE VESSEL, NATIV 02/04/2017 Ot V58.69 OTH MED,LT,CURRENT USE 02/04/2017 Ot 401.9 HYPE RTENSION NOS 02/04/2017 Ot 414.00 COR ON ATHEROSCLER NOS TYPE VESSEL, NATIV 02/04/2017 Ot V58.69 OTH MED,LT,CURRENT USE 02/04/2017 ALIA LATHAM, TORIE Boyer Ot 724.2 LUMBAGO 02/04/2017 BAIMA, ERWIN L CISCO UNIFIED 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 ENGINEER Ot 272.4 HYPERLIPIDEMIA NEC/NOS 02/04/2017 BAIMA, ERWIN L CISCO UNIFIED 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 ENGINEER Ot 401.9 HYPERTENSION NOS 02/04/2017 BAIMA, ERWIN L CISCO UNIFIED 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 ENGINEER Ot 414.00 CORON ATHEROSCLER NOS TYPE VESSEL, NATIV 02/04/2017 BAIMA, ERWIN L CISCO UNIFIED 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 ENGINEER Ot 272.4 HYPERLIPIDEMIA NEC/NOS 02/04/2017 BAIMA, ERWIN L CISCO UNIFIED 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 ENGINEER Ot 401.9 HYPERTENSION NOS 02/04/2017 BAIMA, ERWIN L CISCO UNIFIED 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 ENGINEER Ot 414.00 CORON ATHEROSCLER NOS TYPE VESSEL, NATIV 02/04/2017 BAIMA, ERWIN L CISCO UNIFIED 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 ENGINEER Ot 414.8 CHR ISCHEMIC HRT DIS NEC 02/04/2017 ALIA LATHAM, TORIE Boyer Ot 786.2 COUGH 02/04/2017 TORIE ROJO MD Ot 786.7 ABNORMAL CHEST SOUNDS 02/04/2017 BAIMA, ERWIN L CISCO UNIFIED 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 ENGINEER Ot 272.4 HYPERLIPIDEMIA NEC/NOS 02/04/2017 BAIMA, ERWIN L CISCO UNIFIED 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 ENGINEER Ot 414.00 CORON ATHEROSCLER NOS TYPE VESSEL, NATIV 02/04/2017 BAIMA, ERWIN L CISCO UNIFIED 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 ENGINEER Ot 433.10 CAROTID ARTERY OCCLUSION W O CEREBRAL IN 02/04/2017 BAIMA, ERWIN L CISCO UNIFIED 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 ENGINEER Ot 272.4 HYPERLIPIDEMIA NEC/NOS 02/04/2017 BAIMA, ERWIN L CISCO UNIFIED 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 ENGINEER Ot 305.1 TOBACCO USE DISORDER 02/04/2017 BAIMA, ERWIN L CISCO UNIFIED 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 ENGINEER Ot 401.9 HYPERTENSION NOS 02/04/2017 BAIMA, ERWIN L CISCO UNIFIED 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 ENGINEER Ot 414.00 CORON ATHEROSCLER NOS TYPE VESSEL, NATIV 02/04/2017 BAIABBEY ERWIN Lovell CISCO UNIFIED 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 ENGINEER Ot 4 96 CHR AIRWAY OBSTRUCT NEC 02/04/2017 KARMEN SU CISCO UNIFIED 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 ENGINEER Ot 250.00 DIAB MEGGAN WO COMPL, TYPE II OR UNSPEC TY 02/04/2017 KARMEN SU CISCO UNIFIED 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 ENGINEER Ot 401.9 HYPERTENSION NOS 02/04/2017 KARMEN SU CISCO UNIFIED 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 ENGINEER Ot 780.4 DIZZINESS AND GIDDINESS 02/04/2017 ERWIN CHANG CISCO UNIFIED 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 ENGINEER Ot 272.4 HYPERLIPIDEMIA NEC/NOS 02/04/2017 ERWIN CHANG CISCO UNIFIED 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 ENGINEER Ot 414.00 CORON ATHEROSCLER NOS TYPE VESSEL, NATIV 02/04/2017 BARAK JF B SUPERVISOR PASTRY Ot 298.9 PSYCHOSIS NOS 02/04/2017 JF CANCINO SUPERVISOR PASTRY Ot 780.4 DIZZINESS AND GIDDINESS 02/04/2017 BARAK JF B SUPERVISOR PASTRY Ot 780.79 OTH MALAISE FATIGUE 02/04/2017 SALLY CANCINOA Frankie SUPERVISOR PASTRY Ot 781.2 ABNORMALITY OF GAIT 02/04/2017 GIRISH DONOHUE MD Ot 709.9 SKIN DISORDER NOS 02/04/2017 GIRISH DONOHUE MD Ot V72.84 EXAM PRE-OPERATIVE NOS 02/04/2017 KARMEN SU CISCO UNIFIED 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 ENGINEER Ot 786.2 COUGH 02/04/2017 OSCAR LATHAM FAC, ALI FACP CCDS Ot E78.4 OTHER HYPERLIPIDEMIA 02/04/2017 OSCAR LATHAM FACC, ALI FACP CCDS Ot I10 ESSENTIAL (PRIMARY) HYPERTENSION 02/04/2017 OSCAR LATHAM FACC, ALI FACP CCDS Ot I25.10 ATHSCL HEART DISEASE OF [place] CORONARY 02/04/2017 OSCAR LATHAM FACC, ALI FACP CCDS Ot J43.8 OTHER EMPHYSEMA 02/04/2017 OSCAR LATHAM FACC, ALI FACP CCDS Ot Z72.0 TOBACCO USE 02/04/2017 GIRISH DONOHUE MD Ot 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 02/04/2017 GIRISH DONOHUE MD Ot I1 0 ESSENTIAL (PRIMARY) HYPERTENSION 02/04/2017 GIRISH DONOHUE MD Ot I25.10 ATHSCL HEART DISEASE OF [place] CORONARY 02/04/2017 GIRISH DONOHUE MD Ot J44.9 CHRONIC OBSTRUCTIVE PULMONARY DISEASE, U 02/04/2017 GIRISH DONOHUE MD Ot 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 02/04/2017 JAYDE LATHAM, GIRISH Boyer Ot L82.1 OTHER SEBORRHEIC KERATOSIS 02/04/2017 SHARLENE KARMEN Boyer CISCO UNIFIED 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 ENGINEER Ot E11.65 TYPE 2 DIABETES MELLITUS WITH HYPERGLYCE 02/04/2017 SHARLENEKARMEN CISCO UNIFIED 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 ENGINEER Ot E55.9 VITAMIN D DEFICIENCY, UNSPECIFIED 02/04/2017 SHARLENEKARMEN CISCO UNIFIED 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 ENGINEER Ot E78.2 MIXED HYPERLIPIDEMIA 02/04/2017 SHARLENE KARMEN M CISCO UNIFIED 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 ENGINEER Ot I10 ESSENTIAL (PRIMARY) HYPERTENSION 02/04/2017 SHARLENEKARMEN CISCO UNIFIED 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 ENGINEER Ot J44.9 CHRONIC OBSTRUCTIVE PULMONARY DISEASE, U 02/04/2017 BAIMA, ERWIN L CISCO UNIFIED 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 ENGINEER Ot E78.4 OTHER HYPERLIPIDEMIA 02/04/2017 BAIMA, ERWIN L CISCO UNIFIED 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 ENGINEER Ot I 10 ESSENTIAL (PRIMARY) HYPERTENSION 02/04/2017 BAIMA, ERWIN L CISCO UNIFIED 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 ENGINEER Ot I25.10 ATHSCL HEART DISEASE OF [place] CORONARY 02/04/2017 BAIMA, ERWIN L CISCO UNIFIED 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 ENGINEER Ot 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 02/04/2017 BAIMA, ERWIN L CISCO UNIFIED 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 ENGINEER Ot E78.4 OTHER HYPERLIPIDEMIA 02/04/2017 BAIMA, ERWIN L CISCO UNIFIED 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 ENGINEER Ot I 10 ESSENTIAL (PRIMARY) HYPERTENSION 02/04/2017 BAIMA, ERWIN L CISCO UNIFIED 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 ENGINEER Ot I25.10 ATHSCL HEART DISEASE OF [place] CORONARY 02/04/2017 BAIMA, ERWIN L CISCO UNIFIED 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 ENGINEER Ot 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 02/04/2017 JAYDE LATHAM, GIRISH Boyer Ot E11.9 TYPE 2 DIABETES MELLITUS WITHOUT COMPLIC 02/04/2017 JAYDE LATHAM, GIRISH Boyer Ot F17.210 NICOTINE DEPENDENCE, CIGARETTES, UNCOMPL 02/04/2017 JAYDE LATHAM, GIRISH Boyer Ot H40.9 UNSPECIFIED GLAUCOMA 02/04/2017 JAYDE LATHAM, GIRISH Boyer Ot I25.10 ATHSCL HEART DISEASE OF [place] CORONARY 02/04/2017 JAYDE LATHAM, GIRISH Boyer Ot J44.9 CHRONIC OBSTRUCTIVE PULMONARY DISEASE, U 02/04/2017 JAYDE LATHAM, GIRISH Boyer Ot K22.2 ESOPHAGEAL OBSTRUCTION 02/04/2017 JAYDE LATHAM, GIRISH Boyer Ot K25.9 GASTRIC ULCER, UNSP ACUTE OR CHRONIC, 02/04/2017 JAYDE LATHAM, GIRISH Boyer Ot K57.30 DVRTCLOS OF LG INT W/O PERFORATION OR AB 02/04/2017 JAYDE LATHAM, GIRISH Boyer Ot M19.90 UNSPECIFIED OSTEOARTHRITIS, UNSPECIFIED 02/06/2017 JAYDE LTAHAM, GIRISH Boyer Ot E11.9 TYPE 2 DIABETES MELLITUS WITHOUT COMPLIC 02/06/2017 JAYDE LATHAM, GIRISH Boyer Ot F17.210 NICOTINE DEPENDENCE, CIGARETTES, UNCOMPL 02/06/2017 JAYDE LATHAM, GIRISH Boyer Ot H40.9 UNSPECIFIED GLAUCOMA 02/06/2017 JAYDE LATHAM, GIRISH Boyer Ot I25.10 ATHSCL HEART DISEASE OF [place] CORONARY 02/06/2017 GIRISH DONOHUE MD Ot J44.9 CHRONIC OBSTRUCTIVE PULMONARY DISEASE, U 02/06/2017 GIRISH DONOHUE MD Ot K22.2 ESOPHAGEAL OBSTRUCTION 02/06/2017 GIRISH DONOHUE MD Ot K25.9 GASTRIC ULCER, UNSP ACUTE OR CHRONIC, 02/06/2017 JAYDE LATHAM, GIRISH Boyer Ot K57.30 DVRTCLOS OF LG INT W/O PERFORATION OR AB 02/06/2017 JAYDE LATHAM, GIRISH Boyer Ot M19.90 UNSPECIFIED OSTEOARTHRITIS, UNSPECIFIED 05/31/2017 KARMEN SU Ot I25.10 ATHSCL HEART DISEASE OF [place] CORONARY 05/31/2017 KARMEN SUP Ot J44.9 CHRONIC OBSTRUCTIVE PULMONARY DISEASE, U 05/31/2017 KARMEN SUP Ot R63.4 ABNORMAL WEIGHT LOSS 05/31/2017 KARMEN SUP Ot R91.8 OTHER NONSPECIFIC ABNORMAL FINDING OF [place] 05/31/2017 KARMEN SU [employer]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 6 HICCOUGH 12/05/2017 CORINE PIKE DO Ot R14. 2 ERUCTATION 12/05/2017 CORINE PIKE DO Ot Z01.818 ENCOUNTER FOR OTHER PREPROCEDURAL EXAMIN 12/06/2017 CORINE PIKE DO Ot R06. 6 HICCOUGH 12/06/2017 CORINE PIKE DO Ot R14. 2 ERUCTATION 12/06/2017 CORINE PIKE DO Ot Z01.818 ENCOUNTER FOR OTHER PREPROCEDURAL EXAMIN 12/06/2017 CORINE PIKE DO Ot R06. 6 HICCOUGH 12/06/2017 CORINE PIKE DO Ot R14. 2 ERUCTATION 12/06/2017 CORINE PIKE DO Ot Z01.818 ENCOUNTER FOR OTHER PREPROCEDURAL EXAMIN 12/10/2017 CORINE PIKE DO Ot E11. 40 TYPE 2 DIABETES MELLITUS WITH DIABETIC N 12/10/2017 CORINE PIKE DO Ot E78. 00 PURE HYPERCHOLESTEROLEMIA, UNSPECIFIED 12/10/2017 CORINE PIKE DO Ot F17.210 NICOTINE DEPENDENCE, CIGARETTES, UNCOMPL 12/10/2017 CORINE PIKE DO Ot F41. 9 ANXIETY DISORDER, UNSPECIFIED 12/10/2017 CORINE PIKE DO Ot I10 ESSENTIAL (PRIMARY) HYPERTENSION 12/10/2017 CORINE PIKE DO Ot I25. 10 ATHSCL HEART DISEASE OF [place] CORONARY 12/10/2017 CORINE PIKE DO Ot J44. 9 CHRONIC OBSTRUCTIVE PULMONARY DISEASE, U 12/10/2017 CORINE PIKE DO Ot K21. 9 GASTRO-ESOPHAGEAL REFLUX DISEASE WITHOUT 12/10/2017 CORINE PIKE DO Ot K22. 2 ESOPHAGEAL OBSTRUCTION 12/10/2017 CORINE PIKE DO Ot K29. 70 GASTRITIS, UNSPECIFIED, WITHOUT BLEEDING 12/10/2017 CORINE PIKE DO Ot K44. 9 DIAPHRAGMATIC HERNIA WITHOUT OBSTRUCTION 12/10/2017 CORINE PIKE DO Ot Z79. 84 [place] (CURRENT) USE OF ORAL HYPOGLYC 12/10/2017 CORINE PIKE DO Ot Z79.899 OTHER [place] (CURRENT) DRUG THERAPY 12/10/2017 CORINE PIKE DO Ot Z95. 5 PRESENCE OF CORONARY ANGIOPLASTY IMPLANT 12/11/2017 CORINE PIKE DO Ot E11. 40 TYPE 2 DIABETES MELLITUS WITH DIABETIC N 12/11/2017 CORINE PIKE DO Ot E78. 00 PURE HYPERCHOLESTEROLEMIA, UNSPECIFIED 12/11/2017 CORINE PIKE DO Ot F17.210 NICOTINE DEPENDENCE, CIGARETTES, UNCOMPL 12/11/2017 CORINE PIKE DO Ot F41. 9 ANXIETY DISORDER, UNSPECIFIED 12/11/2017 CORINE PIKE DO Ot I10 ESSENTIAL (PRIMARY) HYPERTENSION 12/11/2017 CORINE PIKE DO Ot I25. 10 ATHSCL HEART DISEASE OF [place] CORONARY 12/11/2017 CORINE PIKE DO Ot J44. 9 CHRONIC OBSTRUCTIVE PULMONARY DISEASE, U 12/11/2017 CORINE PIKE DO Ot K21. 9 GASTRO-ESOPHAGEAL REFLUX DISEASE WITHOUT 12/11/2017 CORINE PIKE DO Ot K22. 2 ESOPHAGEAL OBSTRUCTION 12/11/2017 CORINE PIKE DO Ot K29. 70 GASTRITIS, UNSPECIFIED, WITHOUT BLEEDING 12/11/2017 CORINE PIKE DO Ot K44. 9 DIAPHRAGMATIC HERNIA WITHOUT OBSTRUCTION 12/11/2017 CORINE PIKE DO Ot Z79. 84 GROUP HOME (CURRENT) USE OF ORAL HYPOGLYC 12/11/2017 CORINE PIKE DO Ot Z79.899 OTHER [place] (CURRENT) DRUG THERAPY 12/11/2017 CORINE PIKE DO Ot Z95. 5 PRESENCE OF CORONARY ANGIOPLASTY IMPLANT 12/11/2017 CORINE PIKE DO Ot E11. 40 TYPE 2 DIABETES MELLITUS WITH DIABETIC N 12/11/2017 CORINE PIKE DO Ot E78. 00 PURE HYPERCHOLESTEROLEMIA, UNSPECIFIED 12/11/2017 CORINE PIKE DO Ot F17.210 NICOTINE DEPENDENCE, CIGARETTES, UNCOMPL 12/11/2017 CORINE PIKE DO Ot F41. 9 ANXIETY DISORDER, UNSPECIFIED 12/11/2017 CORINE PIKE DO Ot I10 ESSENTIAL (PRIMARY) HYPERTENSION 12/11/2017 CORINE PIKE DO Ot I25. 10 ATHSCL HEART DISEASE OF [place] CORONARY 12/11/2017 CORINE PIKE DO Ot J44. 9 CHRONIC OBSTRUCTIVE PULMONARY DISEASE, U 12/11/2017 CORINE PIKE DO Ot K21. 9 GASTRO-ESOPHAGEAL REFLUX DISEASE WITHOUT 12/11/2017 CORINE PIKE DO Ot K22. 2 ESOPHAGEAL OBSTRUCTION 12/11/2017 CORINE PIKE DO Ot K29. 70 GASTRITIS, UNSPECIFIED, WITHOUT BLEEDING 12/11/2017 PIKE CORINE ALBRIGHT Ot K44. 9 DIAPHRAGMATIC HERNIA WITHOUT OBSTRUCTION 12/11/2017 PIKE CORINE ALBRIGHT Ot Z79. 84 [place] (CURRENT) USE OF ORAL HYPOGLYC 12/11/2017 PIKE CORINE ALBRIGHT Ot Z79.899 OTHER [place] (CURRENT) DRUG THERAPY 12/11/2017 PIKE CORINE ALBRIGHT Ot Z95. 5 PRESENCE OF CORONARY ANGIOPLASTY IMPLANT 01/05/2018 Ot 414.01 01/05/2018 Ot V58.61 01/05/2018 ALIA LATHAM, TORIE Boyer Ot 724.2 LUMBAGO 01/05/2018 BAIMA, ERWIN L CISCO UNIFIED 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 ENGINEER Ot 272.4 HYPERLIPIDEMIA NEC/NOS 01/05/2018 BAIMA, ERWIN L CISCO UNIFIED 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 ENGINEER Ot 401.9 HYPERTENSION NOS 01/05/2018 BAIMA, ERWIN L CISCO UNIFIED 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 ENGINEER Ot 414.00 CORON ATHEROSCLER NOS TYPE VESSEL, NATIV 01/05/2018 BAIMA, ERWIN L CISCO UNIFIED 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 ENGINEER Ot 272.4 HYPERLIPIDEMIA NEC/NOS 01/05/2018 BAIMA, ERWIN L CISCO UNIFIED 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 ENGINEER Ot 401.9 HYPERTENSION NOS 01/05/2018 BAIMA, ERWIN L CISCO UNIFIED 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 ENGINEER Ot 414.00 CORON ATHEROSCLER NOS TYPE VESSEL, NATIV 01/05/2018 BAIMA, ERWIN L CISCO UNIFIED 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 ENGINEER Ot 414.8 CHR ISCHEMIC HRT DIS NEC 01/05/2018 TORIE ROJO MD Ot 786.2 COUGH 01/05/2018 TORIE ROJO MD Ot 786.7 ABNORMAL CHEST SOUNDS 01/05/2018 BAIMA, ERWIN L CISCO UNIFIED 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 ENGINEER Ot 272.4 HYPERLIPIDEMIA NEC/NOS 01/05/2018 BAIMA, ERWIN L CISCO UNIFIED 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 ENGINEER Ot 414.00 CORON ATHEROSCLER NOS TYPE VESSEL, NATIV 01/05/2018 BAIMA, ERWIN L CISCO UNIFIED 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 ENGINEER Ot 433.10 CAROTID ARTERY OCCLUSION W O CEREBRAL IN 01/05/2018 BAIMA, ERWIN L CISCO UNIFIED 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 ENGINEER Ot 272.4 HYPERLIPIDEMIA NEC/NOS 01/05/2018 BAIMA, ERWIN L CISCO UNIFIED 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 ENGINEER Ot 305.1 TOBACCO USE DISORDER 01/05/2018 ERWIN CHANG L CISCO UNIFIED 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 ENGINEER Ot 401.9 HYPERTENSION NOS 01/05/2018 ERWIN CHANG L CISCO UNIFIED 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 ENGINEER Ot 414.00 CORON ATHEROSCLER NOS TYPE VESSEL, NATIV 01/05/2018 ERWIN CHANG CISCO UNIFIED 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 ENGINEER Ot 4 96 CHR AIRWAY OBSTRUCT NEC 01/05/2018 KARMEN SU CISCO UNIFIED 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 ENGINEER Ot 250.00 DIAB MEGGAN WO COMPL, TYPE II OR UNSPEC TY 01/05/2018 KARMEN SU CISCO UNIFIED 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 ENGINEER Ot 401.9 HYPERTENSION NOS 01/05/2018 KARMEN SU CISCO UNIFIED 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 ENGINEER Ot 780.4 DIZZINESS AND GIDDINESS 01/05/2018 ERWIN CHANG Nas CISCO UNIFIED 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 ENGINEER Ot 272.4 HYPERLIPIDEMIA NEC/NOS 01/05/2018 ERWIN CHANG L CISCO UNIFIED 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 ENGINEER Ot 414.00 CORON ATHEROSCLER NOS TYPE VESSEL, NATIV 01/05/2018 JF CANCINO SUPERVISOR PASTRY Ot 298.9 PSYCHOSIS NOS 01/05/2018 JF CANCINO SUPERVISOR PASTRY Ot 780.4 DIZZINESS AND GIDDINESS 01/05/2018 BARAK JF B SUPERVISOR PASTRY Ot 780.79 OTH MALAISE FATIGUE 01/05/2018 BARAK JF B SUPERVISOR PASTRY Ot 781.2 ABNORMALITY OF GAIT 01/05/2018 JAYDE LATHAM, GIRISH Boyer Ot 709.9 SKIN DISORDER NOS 01/05/2018 GIRISH DONOHUE MD Ot V72.84 EXAM PRE-OPERATIVE NOS 01/05/2018 KARMEN SU CISCO UNIFIED 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 ENGINEER Ot 786.2 COUGH 01/05/2018 OSCAR LATHAM FACC, MARLENY FACP CCDS Ot E78.4 OTHER HYPERLIPIDEMIA 01/05/2018 OSCAR LATHAM FACC, ALI FACP CCDS Ot I10 ESSENTIAL (PRIMARY) HYPERTENSION 01/05/2018 OSCAR LATHAM FACC, ALI FACP CCDS Ot I25.10 ATHSCL HEART DISEASE OF [place] CORONARY 01/05/2018 OSCAR LATHAM FACC, ALI FACP CCDS Ot J43.8 OTHER EMPHYSEMA 01/05/2018 OSCAR LATHAM FACC, ALI FACP CCDS Ot Z72.0 TOBACCO USE 01/05/2018 GIRISH DONOHUE MD Ot 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 01/05/2018 GIRISH DONOHUE MD Ot I1 0 ESSENTIAL (PRIMARY) HYPERTENSION 01/05/2018 GIRISH DONOHUE MD Ot I25.10 ATHSCL HEART DISEASE OF [place] CORONARY 01/05/2018 JAYDE LATHAM, GIRISH Boyer Ot J44.9 CHRONIC OBSTRUCTIVE PULMONARY DISEASE, U 01/05/2018 JAYDE LAHTAM, GIRISH Boyer Ot 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 01/05/2018 JAYDE LATHAM, GIRISH Boyer Ot L82.1 OTHER SEBORRHEIC KERATOSIS 01/05/2018 KARMEN SU CISCO UNIFIED 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 ENGINEER Ot E11.65 TYPE 2 DIABETES MELLITUS WITH HYPERGLYCE 01/05/2018 KARMEN SU CISCO UNIFIED 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 ENGINEER Ot E55.9 VITAMIN D DEFICIENCY, UNSPECIFIED 01/05/2018 KARMEN SU CISCO UNIFIED 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 ENGINEER Ot E78.2 MIXED HYPERLIPIDEMIA 01/05/2018 KARMEN SU CISCO UNIFIED 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 ENGINEER Ot I10 ESSENTIAL (PRIMARY) HYPERTENSION 01/05/2018 KARMEN SU CISCO UNIFIED 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 ENGINEER Ot J44.9 CHRONIC OBSTRUCTIVE PULMONARY DISEASE, U 01/05/2018 BERNARDO ERWIN L CISCO UNIFIED 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 ENGINEER Ot E78.4 OTHER HYPERLIPIDEMIA 01/05/2018 BERNARDO ERWIN L CISCO UNIFIED 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 ENGINEER Ot I 10 ESSENTIAL (PRIMARY) HYPERTENSION 01/05/2018 BAIMA ERWIN L CISCO UNIFIED 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 ENGINEER Ot I25.10 ATHSCL HEART DISEASE OF [place] CORONARY 01/05/2018 BAIABBEY ERWIN L CISCO UNIFIED 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 ENGINEER Ot 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 01/05/2018 BAIABBEYERWIN L CISCO UNIFIED 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 ENGINEER Ot E78.4 OTHER HYPERLIPIDEMIA 01/05/2018 BAIMA, ERWIN L CISCO UNIFIED 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 ENGINEER Ot I 10 ESSENTIAL (PRIMARY) HYPERTENSION 01/05/2018 BAIABBEY ERWIN L CISCO UNIFIED 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 ENGINEER Ot I25.10 ATHSCL HEART DISEASE OF [place] CORONARY 01/05/2018 BAIMAERWIN L CISCO UNIFIED 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 ENGINEER Ot 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 01/05/2018 KARMEN SU CISCO UNIFIED 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 ENGINEER Ot I25.10 ATHSCL HEART DISEASE OF [place] CORONARY 01/05/2018 KARMEN SU CISCO UNIFIED 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 ENGINEER Ot J44.9 CHRONIC OBSTRUCTIVE PULMONARY DISEASE, U 01/05/2018 KARMEN SU CISCO UNIFIED 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 ENGINEER Ot R63.4 ABNORMAL WEIGHT LOSS 01/05/2018 KARMEN SUP Ot R91.8 OTHER NONSPECIFIC ABNORMAL FINDING OF [place] 01/05/2018 KARMEN SU CISCO UNIFIED 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 ENGINEER Ot Z72.0 TOBACCO USE 01/07/2018 TERESA DO, ISAC A Ot J20 .8 ACUTE BRONCHITIS DUE TO OTHER SPECIFIED 01/27/2018 TERESA ALBRIGHT, ISAC A Ot J20 .8 ACUTE BRONCHITIS DUE TO OTHER SPECIFIED 03/06/2018 TERESA ALBRIGHT, ISAC Waggoner Ot J20 .8 ACUTE BRONCHITIS DUE TO OTHER SPECIFIED 03/10/2018 Ot 414.01 03/10/2018 Ot V58.61 03/10/2018 ALIA LATHAM, TORIE Boyer Ot 724.2 LUMBAGO 03/10/2018 BAIMA, ERWIN L CISCO UNIFIED 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 ENGINEER Ot 272.4 HYPERLIPIDEMIA NEC/NOS 03/10/2018 BAIMA, ERWIN L CISCO UNIFIED 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 ENGINEER Ot 401.9 HYPERTENSION NOS 03/10/2018 BAIMA, ERWIN L CISCO UNIFIED 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 ENGINEER Ot 414.00 CORON ATHEROSCLER NOS TYPE VESSEL, NATIV 03/10/2018 BAIMA, ERWIN L CISCO UNIFIED 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 ENGINEER Ot 272.4 HYPERLIPIDEMIA NEC/NOS 03/10/2018 BAIMA, ERWIN L CISCO UNIFIED 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 ENGINEER Ot 401.9 HYPERTENSION NOS 03/10/2018 BAIMA, ERWIN L CISCO UNIFIED 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 ENGINEER Ot 414.00 CORON ATHEROSCLER NOS TYPE VESSEL, NATIV 03/10/2018 BAIMA, ERWIN L CISCO UNIFIED 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 ENGINEER Ot 414.8 CHR ISCHEMIC HRT DIS NEC 03/10/2018 ALIA LATHAM, TORIE Boyer Ot 786.2 COUGH 03/10/2018 ALIA LATHAM, TORIE Boyer Ot 786.7 ABNORMAL CHEST SOUNDS 03/10/2018 BAIMA, EWRIN L CISCO UNIFIED 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 ENGINEER Ot 272.4 HYPERLIPIDEMIA NEC/NOS 03/10/2018 BAIMA, ERWIN L CISCO UNIFIED 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 ENGINEER Ot 414.00 CORON ATHEROSCLER NOS TYPE VESSEL, NATIV 03/10/2018 BAIMA, ERWIN L CISCO UNIFIED 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 ENGINEER Ot 433.10 CAROTID ARTERY OCCLUSION W O CEREBRAL IN 03/10/2018 BAIMA, ERWIN L CISCO UNIFIED 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 ENGINEER Ot 272.4 HYPERLIPIDEMIA NEC/NOS 03/10/2018 BAIMA, ERWIN L CISCO UNIFIED 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 ENGINEER Ot 305.1 TOBACCO USE DISORDER 03/10/2018 BAIMA, ERWIN L CISCO UNIFIED 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 ENGINEER Ot 401.9 HYPERTENSION NOS 03/10/2018 BAIMA, ERWIN L CISCO UNIFIED 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 ENGINEER Ot 414.00 CORON ATHEROSCLER NOS TYPE VESSEL, NATIV 03/10/2018 BAIMA, ERWIN L CISCO UNIFIED 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 ENGINEER Ot 4 96 CHR AIRWAY OBSTRUCT NEC 03/10/2018 KARMEN SU CISCO UNIFIED 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 ENGINEER Ot 250.00 DIAB MEGGAN WO COMPL, TYPE II OR UNSPEC TY 03/10/2018 KARMEN SU CISCO UNIFIED 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 ENGINEER Ot 401.9 HYPERTENSION NOS 03/10/2018 KARMEN SU CISCO UNIFIED 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 ENGINEER Ot 780.4 DIZZINESS AND GIDDINESS 03/10/2018 OSKARERWIN POTTER Nas CISCO UNIFIED 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 ENGINEER Ot 272.4 HYPERLIPIDEMIA NEC/NOS 03/10/2018 BERNARDOYOLANDAERWIN L CISCO UNIFIED 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 ENGINEER Ot 414.00 CORON ATHEROSCLER NOS TYPE VESSEL, NATIV 03/10/2018 BARAK JF B SUPERVISOR PASTRY Ot 298.9 PSYCHOSIS NOS 03/10/2018 BARAK JF B SUPERVISOR PASTRY Ot 780.4 DIZZINESS AND GIDDINESS 03/10/2018 BARAK JF B SUPERVISOR PASTRY Ot 780.79 OTH MALAISE FATIGUE 03/10/2018 BARAK JF B SUPERVISOR PASTRY Ot 781.2 ABNORMALITY OF GAIT 03/10/2018 JAYDE LATHAM, GIRISH Boyer Ot 709.9 SKIN DISORDER NOS 03/10/2018 GIRISH DONOHUE MD Ot V72.84 EXAM PRE-OPERATIVE NOS 03/10/2018 KARMEN SU CISCO UNIFIED 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 ENGINEER Ot 786.2 COUGH 03/10/2018 OSCAR LATHAM FACC, ALI FACP CCDS Ot E78.4 OTHER HYPERLIPIDEMIA 03/10/2018 OSCAR LATHAM FACC, ALI FACP CCDS Ot I10 ESSENTIAL (PRIMARY) HYPERTENSION 03/10/2018 OSCAR LATHAM FACC, ALI FACP CCDS Ot I25.10 ATHSCL HEART DISEASE OF [place] CORONARY 03/10/2018 OSCAR LATHAM FACC, ALI FACP CCDS Ot J43.8 OTHER EMPHYSEMA 03/10/2018 OSCAR LATHAM FACC, ALI FACP CCDS Ot Z72.0 TOBACCO USE 03/10/2018 GIRISH DONOHUE MD Ot 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 03/10/2018 GIRISH DONOHUE MD Ot I1 0 ESSENTIAL (PRIMARY) HYPERTENSION 03/10/2018 GIRISH DONOHUE MD Ot I25.10 ATHSCL HEART DISEASE OF [place] CORONARY 03/10/2018 GIRISH DONOHUE MD Ot J44.9 CHRONIC OBSTRUCTIVE PULMONARY DISEASE, U 03/10/2018 GIRISH DONOHUE MD Ot 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 03/10/2018 GIRISH DONOHUE MD Ot L82.1 OTHER SEBORRHEIC KERATOSIS 03/10/2018 KARMEN SU CISCO UNIFIED 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 ENGINEER Ot E11.65 TYPE 2 DIABETES MELLITUS WITH HYPERGLYCE 03/10/2018 KARMEN SU CISCO UNIFIED 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 ENGINEER Ot E55.9 VITAMIN D DEFICIENCY, UNSPECIFIED 03/10/2018 KARMEN SU CISCO UNIFIED 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 ENGINEER Ot E78.2 MIXED HYPERLIPIDEMIA 03/10/2018 KARMEN SU CISCO UNIFIED 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 ENGINEER Ot I10 ESSENTIAL (PRIMARY) HYPERTENSION 03/10/2018 KARMEN SU CISCO UNIFIED 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 ENGINEER Ot J44.9 CHRONIC OBSTRUCTIVE PULMONARY DISEASE, U 03/10/2018 BAIMA, ERWIN L CISCO UNIFIED 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 ENGINEER Ot E78.4 OTHER HYPERLIPIDEMIA 03/10/2018 BAIMA, ERWIN L CISCO UNIFIED 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 ENGINEER Ot I 10 ESSENTIAL (PRIMARY) HYPERTENSION 03/10/2018 BAIMA, ERWIN L CISCO UNIFIED 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 ENGINEER Ot I25.10 ATHSCL HEART DISEASE OF [place] CORONARY 03/10/2018 BAIMA, ERWIN L CISCO UNIFIED 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 ENGINEER Ot 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 03/10/2018 BAIMA, ERWIN L CISCO UNIFIED 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 ENGINEER Ot E78.4 OTHER HYPERLIPIDEMIA 03/10/2018 BAIMA, ERWIN L CISCO UNIFIED 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 ENGINEER Ot I 10 ESSENTIAL (PRIMARY) HYPERTENSION 03/10/2018 BAIMA, ERWIN L CISCO UNIFIED 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 ENGINEER Ot I25.10 ATHSCL HEART DISEASE OF [place] CORONARY 03/10/2018 BAIMA, ERWIN L CISCO UNIFIED 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 ENGINEER Ot 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 03/10/2018 KARMEN SU CISCO UNIFIED 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 ENGINEER Ot I25.10 ATHSCL HEART DISEASE OF [place] CORONARY 03/10/2018 KARMEN SU CISCO UNIFIED 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 ENGINEER Ot J44.9 CHRONIC OBSTRUCTIVE PULMONARY DISEASE, U 03/10/2018 KARMEN SUP Ot R63.4 ABNORMAL WEIGHT LOSS 03/10/2018 KARMEN SU CISCO UNIFIED 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 ENGINEER Ot R91.8 OTHER NONSPECIFIC ABNORMAL FINDING OF [place] 03/10/2018 KARMEN SU CISCO UNIFIED 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 ENGINEER Ot Z72.0 TOBACCO USE 03/10/2018 COLTHARP DO, ISAC A Ot J20 .8 ACUTE BRONCHITIS DUE TO OTHER SPECIFIED 03/19/2018 Ot C44.321 SQ UAMOUS CELL CARCINOMA OF SKIN OF NOSE 03/19/2018 Ot Z01.810 EN COUNTER FOR PREPROCEDURAL CARDIOVASCUL 03/19/2018 Ot Z01.812 EN COUNTER FOR PREPROCEDURAL LABORATORY E 03/19/2018 Ot Z11.2 ENCO UNTER FOR SCREENING FOR OTHER BACTER 03/21/2018 JIGNESH CHEN MD Ot 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 03/21/2018 JIGNESH CHEN MD Ot E11.40 TYPE 2 DIABETES MELLITUS WITH DIABETIC N 03/21/2018 JIGNESH CHEN MD Ot F17.210 NICOTINE DEPENDENCE, CIGARETTES, UNCOMPL 03/21/2018 JIGNESH CHEN MD Ot I10 ESSENTIAL (PRIMARY) HYPERTENSION 03/21/2018 JIGNESH CHEN MD Ot I25.10 ATHSCL HEART DISEASE OF [place] CORONARY 03/21/2018 JIGNESH CHEN MD Ot J44 .9 CHRONIC OBSTRUCTIVE PULMONARY DISEASE, U 03/21/2018 JIGNESH CHEN MD Ot K21 .9 GASTRO-ESOPHAGEAL REFLUX DISEASE WITHOUT 03/21/2018 JIGNESH CHEN MD Ot Z79 .4 [place] (CURRENT) USE OF INSULIN 03/21/2018 JIGNESH CHEN MD Ot Z79.82 GROUP HOME (CURRENT) USE OF ASPIRIN 03/21/2018 JIGNESH CHEN MD Ot Z95 .5 PRESENCE OF CORONARY ANGIOPLASTY IMPLANT 04/11/2018 JIGNESH CHEN MD Ot 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 04/11/2018 JIGNESH CHEN MD Ot E11.40 TYPE 2 DIABETES MELLITUS WITH DIABETIC N 04/11/2018 JIGNESH CHEN MD Ot F17.210 NICOTINE DEPENDENCE, CIGARETTES, UNCOMPL 04/11/2018 JIGNESH CHEN MD Ot I10 ESSENTIAL (PRIMARY) HYPERTENSION 04/11/2018 JIGNESH CHEN MD Ot I25.10 ATHSCL HEART DISEASE OF [place] CORONARY 04/11/2018 JIGNESH CHEN MD Ot J44 .9 CHRONIC OBSTRUCTIVE PULMONARY DISEASE, U 04/11/2018 JIGNESH CHEN MD Ot K21 .9 GASTRO-ESOPHAGEAL REFLUX DISEASE WITHOUT 04/11/2018 JIGNESH CHEN MD Ot Z79 .4 [place] (CURRENT) USE OF INSULIN 04/11/2018 JIGNESH CHEN MD Ot Z79.82 [place] (CURRENT) USE OF ASPIRIN 04/11/2018 JIGNESH CHEN MD Ot Z95 .5 PRESENCE OF CORONARY ANGIOPLASTY IMPLANT 09/17/2018 ERWIN CHANG CISCO UNIFIED 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 ENGINEER Ot E78.5 HYPERLIPIDEMIA, UNSPECIFIED 09/17/2018 ERWIN CHANG CISCO UNIFIED 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 ENGINEER Ot I 10 ESSENTIAL (PRIMARY) HYPERTENSION 09/17/2018 ERWIN CHANG CISCO UNIFIED 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 ENGINEER Ot I25.10 ATHSCL HEART DISEASE OF [place] CORONARY 09/17/2018 ERWIN CHANG CISCO UNIFIED 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 ENGINEER Ot I77.89 OTHER SPECIFIED DISORDERS OF ARTERIES AN 09/17/2018 ERWIN CHANG CISCO UNIFIED 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 ENGINEER Ot R60.0 LOCALIZED EDEMA 09/17/2018 ERWIN CHANG CISCO UNIFIED 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 ENGINEER Ot Z72.0 TOBACCO USE 10/08/2018 ERWIN CHANG CISCO UNIFIED 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 ENGINEER Ot E78.5 HYPERLIPIDEMIA, UNSPECIFIED 10/08/2018 ERWIN CHANG CISCO UNIFIED 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 ENGINEER Ot I 10 ESSENTIAL (PRIMARY) HYPERTENSION 10/08/2018 ERWIN CHANG CISCO UNIFIED 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 ENGINEER Ot I25.10 ATHSCL HEART DISEASE OF [place] CORONARY 10/08/2018 ERWIN CHANG CISCO UNIFIED 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 ENGINEER Ot I77.89 OTHER SPECIFIED DISORDERS OF ARTERIES AN 10/08/2018 ERWIN CHANG CISCO UNIFIED 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 ENGINEER Ot R60.0 LOCALIZED EDEMA 10/08/2018 ERWIN CHANG CISCO UNIFIED 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 ENGINEER Ot Z72.0 TOBACCO USE 11/19/2018 Ot 414.01 11/19/2018 Ot V58.61 11/19/2018 JIGNESH CHEN MD Ot L98 .9 DISORDER OF THE SKIN AND SUBCUTANEOUS TI 11/19/2018 JIGNESH CHEN MD Ot Z01.810 ENCOUNTER FOR PREPROCEDURAL CARDIOVASCUL 11/19/2018 JIGNESH CHEN MD Ot Z01.811 ENCOUNTER FOR PREPROCEDURAL RESPIRATORY 11/19/2018 JIGNESH CHEN MD Ot Z01.812 ENCOUNTER FOR PREPROCEDURAL LABORATORY E 11/19/2018 JIGNESH CHEN MD Ot Z11 .2 ENCOUNTER FOR SCREENING FOR OTHER BACTER 11/20/2018 JIGNESH CHEN MD Ot L98 .9 DISORDER OF THE SKIN AND SUBCUTANEOUS TI 11/20/2018 JIGNESH CHEN MD Ot Z01.810 ENCOUNTER FOR PREPROCEDURAL CARDIOVASCUL 11/20/2018 JIGNESH CHEN MD Ot Z01.811 ENCOUNTER FOR PREPROCEDURAL RESPIRATORY 11/20/2018 JIGNESH CHEN MD Ot Z01.812 ENCOUNTER FOR PREPROCEDURAL LABORATORY E 11/20/2018 JIGNESH CHEN MD Ot Z11 .2 ENCOUNTER FOR SCREENING FOR OTHER BACTER 11/28/2018 JIGNESH CHEN MD Ot C44.1221 SQUAMOUS CELL CARCINOMA SKIN/ R UPPER EY 11/28/2018 JIGNESH CHEN MD Ot E11.40 TYPE 2 DIABETES MELLITUS WITH DIABETIC N 11/28/2018 JIGNESH CHEN MD Ot I10 ESSENTIAL (PRIMARY) HYPERTENSION 11/28/2018 JIGNESH HCEN MD Ot I25.10 ATHSCL HEART DISEASE OF [place] CORONARY 11/28/2018 JIGNESH CHEN MD Ot J44 .9 CHRONIC OBSTRUCTIVE PULMONARY DISEASE, U 11/28/2018 JIGNESH CHEN MD Ot K21 .9 GASTRO-ESOPHAGEAL REFLUX DISEASE WITHOUT 11/28/2018 JIGNESH CHEN MD Ot Z79 .4 [place] (CURRENT) USE OF INSULIN 11/28/2018 JIGNESH CHEN MD Ot Z79.82 GROUP HOME (CURRENT) USE OF ASPIRIN 11/28/2018 JIGNESH CHEN MD Ot Z79.899 OTHER GROUP HOME (CURRENT) DRUG THERAPY 11/28/2018 JIGNESH CHEN MD Ot Z87.891 PERSONAL HISTORY OF NICOTINE DEPENDENCE 11/28/2018 JIGNESH CHEN MD Ot Z95 .5 PRESENCE OF CORONARY ANGIOPLASTY IMPLANT 12/01/2018 JIGNESH CHEN MD Ot C44.1221 SQUAMOUS CELL CARCINOMA SKIN/ R UPPER EY 12/01/2018 JIGNESH CHEN MD Ot E11.40 TYPE 2 DIABETES MELLITUS WITH DIABETIC N 12/01/2018 JIGNESH CHEN MD Ot I10 ESSENTIAL (PRIMARY) HYPERTENSION 12/01/2018 JIGNESH CHEN MD Ot I25.10 ATHSCL HEART DISEASE OF [place] CORONARY 12/01/2018 JIGNESH CHEN MD Ot J44 .9 CHRONIC OBSTRUCTIVE PULMONARY DISEASE, U 12/01/2018 JIGNESH CHEN MD Ot K21 .9 GASTRO-ESOPHAGEAL REFLUX DISEASE WITHOUT 12/01/2018 JIGNESH CHEN MD Ot Z79 .4 GROUP HOME (CURRENT) USE OF INSULIN 12/01/2018 JIGNESH CHEN MD Ot Z79.82 GROUP HOME (CURRENT) USE OF ASPIRIN 12/01/2018 JIGNESH CHEN MD Ot Z79.899 OTHER [place] (CURRENT) DRUG THERAPY 12/01/2018 JIGNESH CHEN MD Ot Z87.891 PERSONAL HISTORY OF NICOTINE DEPENDENCE 12/01/2018 JIGNESH CHEN MD Ot Z95 .5 PRESENCE OF CORONARY ANGIOPLASTY IMPLANT 12/03/2018 JIGNESH CHEN MD Ot R26 .9 UNSPECIFIED ABNORMALITIES OF GAIT AND MO 12/03/2018 JIGNESH CHEN MD Ot R53 .1 WEAKNESS 12/08/2018 JIGNESH CHEN MD Ot R26 .9 UNSPECIFIED ABNORMALITIES OF GAIT AND MO 12/08/2018 JIGNESH CHEN MD Ot R53 .1 WEAKNESS 03/09/2019 KARMEN SUP Ot J44.9 CHRONIC OBSTRUCTIVE PULMONARY DISEASE, U 03/30/2019 KARMEN SU CISCO UNIFIED 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 ENGINEER Ot J44.9 CHRONIC OBSTRUCTIVE PULMONARY DISEASE, U 08/06/2019 KARMEN SU CISCO UNIFIED 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 ENGINEER Ot J44.9 CHRONIC OBSTRUCTIVE PULMONARY DISEASE, U 08/06/2019 KARMEN SU CISCO UNIFIED COMMUNICATIONS ENGINEER Ot R53.1 WEAKNESS 08/06/2019 KARMEN SU CISCO UNIFIED COMMUNICATIONS ENGINEER Ot R91.8 OTHER NONSPECIFIC ABNORMAL FINDING OF [place] 08/06/2019 Ot 414.01 08/06/2019 Ot V58.61 08/06/2019 ALIA LATHAM, TORIE Boyer Ot 786.2 COUGH 08/06/2019 ALIA LATHAM, TORIE Boyer Ot 786.7 ABNORMAL CHEST SOUNDS 08/06/2019 BAIMA, ERWIN L CISCO UNIFIED COMMUNICATIONS ENGINEER Ot 272.4 HYPERLIPIDEMIA NEC/NOS 08/06/2019 BAIMA, ERWIN L CISCO UNIFIED COMMUNICATIONS ENGINEER Ot 414.00 CORON ATHEROSCLER NOS TYPE VESSEL, NATIV 08/06/2019 BAIMA, ERWIN L CISCO UNIFIED COMMUNICATIONS ENGINEER Ot 433.10 CAROTID ARTERY OCCLUSION W O CEREBRAL IN 08/06/2019 BAIMA, ERWIN L CISCO UNIFIED COMMUNICATIONS ENGINEER Ot 272.4 HYPERLIPIDEMIA NEC/NOS 08/06/2019 BAIMA, ERWIN L CISCO UNIFIED COMMUNICATIONS ENGINEER Ot 305.1 TOBACCO USE DISORDER 08/06/2019 BAIMA, ERWIN L CISCO UNIFIED COMMUNICATIONS ENGINEER Ot 401.9 HYPERTENSION NOS 08/06/2019 BAIMA, ERWIN L CISCO UNIFIED COMMUNICATIONS ENGINEER Ot 414.00 CORON ATHEROSCLER NOS TYPE VESSEL, NATIV 08/06/2019 BAIMA, ERWIN L CISCO UNIFIED COMMUNICATIONS ENGINEER Ot 4 96 CHR AIRWAY OBSTRUCT NEC 08/06/2019 KARMEN SU CISCO UNIFIED COMMUNICATIONS ENGINEER Ot 250.00 DIAB MEGGAN WO COMPL, TYPE II OR UNSPEC TY 08/06/2019 KARMEN SU CISCO UNIFIED COMMUNICATIONS ENGINEER Ot 401.9 HYPERTENSION NOS 08/06/2019 KARMEN SU CISCO UNIFIED COMMUNICATIONS ENGINEER Ot 780.4 DIZZINESS AND GIDDINESS 08/06/2019 BAIMA, ERWIN L CISCO UNIFIED COMMUNICATIONS ENGINEER Ot 272.4 HYPERLIPIDEMIA NEC/NOS 08/06/2019 BAIMA, ERWIN L CISCO UNIFIED COMMUNICATIONS ENGINEER Ot 414.00 CORON ATHEROSCLER NOS TYPE VESSEL, NATIV 08/06/2019 JF CANCINO SUPERVISOR PASTRY Ot 298.9 PSYCHOSIS NOS 08/06/2019 JF CANCINO SUPERVISOR PASTRY Ot 780.4 DIZZINESS AND GIDDINESS 08/06/2019 JF CANCINO SUPERVISOR PASTRY Ot 780.79 OTH MALAISE FATIGUE 08/06/2019 JF CANCINO SUPERVISOR PASTRY Ot 781.2 ABNORMALITY OF GAIT 08/06/2019 JAYDE LATHAM, GIRISH Boyer Ot 709.9 SKIN DISORDER NOS 08/06/2019 GIRISH DONOHUE MD Ot V72.84 EXAM PRE-OPERATIVE NOS 08/06/2019 KARMEN SU CISCO UNIFIED COMMUNICATIONS ENGINEER Ot 786.2 COUGH 08/06/2019 OSCAR LATHAM FAC, ALI FACP CCDS Ot E78.4 OTHER HYPERLIPIDEMIA 08/06/2019 OSCAR LATHAM FAC, ALI FACP CCDS Ot I10 ESSENTIAL (PRIMARY) HYPERTENSION 08/06/2019 OSCAR LATHAM FAC, ALI FACP CCDS Ot I25.10 ATHSCL HEART DISEASE OF [place] CORONARY 08/06/2019 OSCAR LATHAM FAC, ALI FACP CCDS Ot J43.8 OTHER EMPHYSEMA 08/06/2019 OSCAR LATHAM FAC, ALI FACP CCDS Ot Z72.0 TOBACCO USE 08/06/2019 GIRISH DONOHUE MD Ot 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 08/06/2019 GIRISH DONOHUE MD Ot I1 0 ESSENTIAL (PRIMARY) HYPERTENSION 08/06/2019 GIRISH DONOHUE MD Ot I25.10 ATHSCL HEART DISEASE OF [place] CORONARY 08/06/2019 GIRISH DONOHUE MD Ot J44.9 CHRONIC OBSTRUCTIVE PULMONARY DISEASE, U 08/06/2019 GIRISH DONOHUE MD Ot 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 08/06/2019 GIRISH DONOHUE MD Ot L82.1 OTHER SEBORRHEIC KERATOSIS 08/06/2019 KARMEN SU CISCO UNIFIED COMMUNICATIONS ENGINEER Ot E11.65 TYPE 2 DIABETES MELLITUS WITH HYPERGLYCE 08/06/2019 KARMEN SU CISCO UNIFIED COMMUNICATIONS ENGINEER Ot E55.9 VITAMIN D DEFICIENCY, UNSPECIFIED 08/06/2019 KARMEN SU CISCO UNIFIED COMMUNICATIONS ENGINEER Ot E78.2 MIXED HYPERLIPIDEMIA 08/06/2019 KARMEN SU CISCO UNIFIED COMMUNICATIONS ENGINEER Ot I10 ESSENTIAL (PRIMARY) HYPERTENSION 08/06/2019 KARMEN SU CISCO UNIFIED COMMUNICATIONS ENGINEER Ot J44.9 CHRONIC OBSTRUCTIVE PULMONARY DISEASE, U 08/06/2019 ERWIN CHANG CISCO UNIFIED COMMUNICATIONS ENGINEER Ot E78.4 OTHER HYPERLIPIDEMIA 08/06/2019 BAIMA, ERWIN L CISCO UNIFIED COMMUNICATIONS ENGINEER Ot I 10 ESSENTIAL (PRIMARY) HYPERTENSION 08/06/2019 BAIERWIN POTTER L CISCO UNIFIED COMMUNICATIONS ENGINEER Ot I25.10 ATHSCL HEART DISEASE OF [place] CORONARY 08/06/2019 ERWIN CHANG L CISCO UNIFIED COMMUNICATIONS ENGINEER Ot 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 08/06/2019 ERWIN CHANG L CISCO UNIFIED COMMUNICATIONS ENGINEER Ot E78.4 OTHER HYPERLIPIDEMIA 08/06/2019 BAIABBEY ERWIN L CISCO UNIFIED COMMUNICATIONS ENGINEER Ot I 10 ESSENTIAL (PRIMARY) HYPERTENSION 08/06/2019 BAIYOLANDA POTTERHER L CISCO UNIFIED COMMUNICATIONS ENGINEER Ot I25.10 ATHSCL HEART DISEASE OF [place] CORONARY 08/06/2019 BAIERWIN POTTER L CISCO UNIFIED COMMUNICATIONS ENGINEER Ot 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 08/06/2019 KARMEN SU CISCO UNIFIED COMMUNICATIONS ENGINEER Ot I25.10 ATHSCL HEART DISEASE OF [place] CORONARY 08/06/2019 KARMEN SUP Ot J44.9 CHRONIC OBSTRUCTIVE PULMONARY DISEASE, U 08/06/2019 KARMEN SUP Ot R63.4 ABNORMAL WEIGHT LOSS 08/06/2019 KARMEN SUP Ot R91.8 OTHER NONSPECIFIC ABNORMAL FINDING OF [place] 08/06/2019 KARMEN SUP Ot Z72.0 TOBACCO USE 08/06/2019 COLTHARP DO, ISAC A Ot J20 .8 ACUTE BRONCHITIS DUE TO OTHER SPECIFIED 08/06/2019 OSKARERWIN POTTER L CISCO UNIFIED COMMUNICATIONS ENGINEER Ot E78.5 HYPERLIPIDEMIA, UNSPECIFIED 08/06/2019 OSKARERWIN POTTER L CISCO UNIFIED COMMUNICATIONS ENGINEER Ot I 10 ESSENTIAL (PRIMARY) HYPERTENSION 08/06/2019 OSKARERWIN POTTER L CISCO UNIFIED COMMUNICATIONS ENGINEER Ot I25.10 ATHSCL HEART DISEASE OF [place] CORONARY 08/06/2019 OSKARABBEY ERWIN L CISCO UNIFIED COMMUNICATIONS ENGINEER Ot I77.89 OTHER SPECIFIED DISORDERS OF [place] AN 08/06/2019 OSKARABBEY ERWIN L CISCO UNIFIED COMMUNICATIONS ENGINEER Ot R60.0 LOCALIZED EDEMA 08/06/2019 BERNARDO ERWIN L CISCO UNIFIED COMMUNICATIONS ENGINEER Ot Z72.0 TOBACCO USE 08/06/2019 KARMEN SU CISCO UNIFIED COMMUNICATIONS ENGINEER Ot J44.9 CHRONIC OBSTRUCTIVE PULMONARY DISEASE, U 08/06/2019 KARMEN SUP Ot J44.9 CHRONIC OBSTRUCTIVE PULMONARY DISEASE, U 08/06/2019 KARMEN SUP Ot R53.1 WEAKNESS 08/06/2019 SU, KARMEN M CISCO UNIFIED COMMUNICATIONS ENGINEER Ot R91.8 OTHER NONSPECIFIC ABNORMAL FINDING OF [place] 08/07/2019 Ot 414.01 08/07/2019 Ot V58.61 08/07/2019 ALIA LATHAM, TORIE Boyer Ot 786.2 COUGH 08/07/2019 TORIE ROJO MD Ot 786.7 ABNORMAL CHEST SOUNDS 08/07/2019 BAIMA, ERWIN L CISCO UNIFIED COMMUNICATIONS ENGINEER Ot 272.4 HYPERLIPIDEMIA NEC/NOS 08/07/2019 BAIMA, ERWIN L CISCO UNIFIED COMMUNICATIONS ENGINEER Ot 414.00 CORON ATHEROSCLER NOS TYPE VESSEL, NATIV 08/07/2019 BAIMA, ERWIN L CISCO UNIFIED COMMUNICATIONS ENGINEER Ot 433.10 CAROTID ARTERY OCCLUSION W O CEREBRAL IN 08/07/2019 BAIMA, ERWIN L CISCO UNIFIED COMMUNICATIONS ENGINEER Ot 272.4 HYPERLIPIDEMIA NEC/NOS 08/07/2019 BAIMA, ERWIN L CISCO UNIFIED COMMUNICATIONS ENGINEER Ot 305.1 TOBACCO USE DISORDER 08/07/2019 BAIMA, ERWIN L CISCO UNIFIED COMMUNICATIONS ENGINEER Ot 401.9 HYPERTENSION NOS 08/07/2019 BAIMA, ERWIN L CISCO UNIFIED COMMUNICATIONS ENGINEER Ot 414.00 CORON ATHEROSCLER NOS TYPE VESSEL, NATIV 08/07/2019 BAIMA, ERWIN L CISCO UNIFIED COMMUNICATIONS ENGINEER Ot 4 96 CHR AIRWAY OBSTRUCT NEC 08/07/2019 KARMEN SU CISCO UNIFIED COMMUNICATIONS ENGINEER Ot 250.00 DIAB MEGGAN WO COMPL, TYPE II OR UNSPEC TY 08/07/2019 KARMEN SU CISCO UNIFIED COMMUNICATIONS ENGINEER Ot 401.9 HYPERTENSION NOS 08/07/2019 KARMEN SU CISCO UNIFIED COMMUNICATIONS ENGINEER Ot 780.4 DIZZINESS AND GIDDINESS 08/07/2019 BAIMA, ERWIN L CISCO UNIFIED COMMUNICATIONS ENGINEER Ot 272.4 HYPERLIPIDEMIA NEC/NOS 08/07/2019 BAIMA, ERWIN L CISCO UNIFIED COMMUNICATIONS ENGINEER Ot 414.00 CORON ATHEROSCLER NOS TYPE VESSEL, NATIV 08/07/2019 JF CANCINO SUPERVISOR PASTRY Ot 298.9 PSYCHOSIS NOS 08/07/2019 JF CANCINO SUPERVISOR PASTRY Ot 780.4 DIZZINESS AND GIDDINESS 08/07/2019 JF CANCINO SUPERVISOR PASTRY Ot 780.79 OTH MALAISE FATIGUE 08/07/2019 JF CANCINO SUPERVISOR PASTRY Ot 781.2 ABNORMALITY OF GAIT 08/07/2019 JAYDE LATHAM, GIRISH Boyer Ot 709.9 SKIN DISORDER NOS 08/07/2019 JAYDE LATHAM, GIRISH Boyer Ot V72.84 EXAM PRE-OPERATIVE NOS 08/07/2019 KARMEN SU CISCO UNIFIED COMMUNICATIONS ENGINEER Ot 786.2 COUGH 08/07/[address] [facility], ALI FACP CCDS Ot E78.4 OTHER HYPERLIPIDEMIA 08/07/[address] [facility], ALI FACP CCDS Ot I10 ESSENTIAL (PRIMARY) HYPERTENSION 08/07/[address] [facility], ALI FACP CCDS Ot I25.10 ATHSCL HEART DISEASE OF [place] CORONARY 08/07/[address] [facility], ALI FACP CCDS Ot J43.8 OTHER EMPHYSEMA 08/07/[address] 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 08/07/2019 JAYDE LATHAM, GIRISH Boyer Ot I1 0 ESSENTIAL (PRIMARY) HYPERTENSION 08/07/2019 JAYDE LATHAM, GIRISH Boyer Ot I25.10 ATHSCL HEART DISEASE OF [place] CORONARY 08/07/2019 JAYDE LATHAM, GIRISH Boyer Ot J44.9 CHRONIC OBSTRUCTIVE PULMONARY DISEASE, U 08/07/2019 JAYDE LATHAM, GIRISH Boyer Ot 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 08/07/2019 JAYDE LATHAM, GIRISH Boyer Ot L82.1 OTHER SEBORRHEIC KERATOSIS 08/07/2019 KARMEN SU CISCO UNIFIED COMMUNICATIONS ENGINEER Ot E11.65 TYPE 2 DIABETES MELLITUS WITH HYPERGLYCE 08/07/2019 KARMEN SU CISCO UNIFIED COMMUNICATIONS ENGINEER Ot E55.9 VITAMIN D DEFICIENCY, UNSPECIFIED 08/07/2019 KARMEN SU CISCO UNIFIED COMMUNICATIONS ENGINEER Ot E78.2 MIXED HYPERLIPIDEMIA 08/07/2019 KARMEN SU CISCO UNIFIED COMMUNICATIONS ENGINEER Ot I10 ESSENTIAL (PRIMARY) HYPERTENSION 08/07/2019 KARMEN SU CISCO UNIFIED COMMUNICATIONS ENGINEER Ot J44.9 CHRONIC OBSTRUCTIVE PULMONARY DISEASE, U 08/07/2019 BAIMA ERWIN L CISCO UNIFIED COMMUNICATIONS ENGINEER Ot E78.4 OTHER HYPERLIPIDEMIA 08/07/2019 BAIMA, ERWIN L CISCO UNIFIED COMMUNICATIONS ENGINEER Ot I 10 ESSENTIAL (PRIMARY) HYPERTENSION 08/07/2019 BAIMA ERWIN L CISCO UNIFIED COMMUNICATIONS ENGINEER Ot I25.10 ATHSCL HEART DISEASE OF [place] CORONARY 08/07/2019 BAIMA ERWIN L CISCO UNIFIED COMMUNICATIONS ENGINEER Ot 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 08/07/2019 BAIMA ERWIN L CISCO UNIFIED COMMUNICATIONS ENGINEER Ot E78.4 OTHER HYPERLIPIDEMIA 08/07/2019 BAIMA, ERWIN L CISCO UNIFIED COMMUNICATIONS ENGINEER Ot I 10 ESSENTIAL (PRIMARY) HYPERTENSION 08/07/2019 OSKARYOLANDA POTTERHER Lovell CISCO UNIFIED COMMUNICATIONS ENGINEER Ot I25.10 ATHSCL HEART DISEASE OF [place] CORONARY 08/07/2019 OSKARYOLANDA POTTERHER Lovell CISCO UNIFIED COMMUNICATIONS ENGINEER Ot 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 08/07/2019 KARMEN SUP Ot I25.10 ATHSCL HEART DISEASE OF [place] CORONARY 08/07/2019 KARMEN SUP Ot J44.9 CHRONIC OBSTRUCTIVE PULMONARY DISEASE, U 08/07/2019 KARMEN SU CISCO UNIFIED COMMUNICATIONS ENGINEER Ot R63.4 ABNORMAL WEIGHT LOSS 08/07/2019 KARMEN SUP Ot R91.8 OTHER NONSPECIFIC ABNORMAL FINDING OF [place] 08/07/2019 KARMEN SUP Ot Z72.0 TOBACCO USE 08/07/2019 ISAC MOORE DO Ot J20 .8 ACUTE BRONCHITIS DUE TO OTHER SPECIFIED 08/07/2019 ERWIN CHANG L CISCO UNIFIED COMMUNICATIONS ENGINEER Ot E78.5 HYPERLIPIDEMIA, UNSPECIFIED 08/07/2019 ERWIN CHANG CISCO UNIFIED COMMUNICATIONS ENGINEER Ot I 10 ESSENTIAL (PRIMARY) HYPERTENSION 08/07/2019 OSKARABBEY ERWIN Nas CISCO UNIFIED COMMUNICATIONS ENGINEER Ot I25.10 ATHSCL HEART DISEASE OF [place] CORONARY 08/07/2019 OSKARABBEY ERWIN L CISCO UNIFIED COMMUNICATIONS ENGINEER Ot I77.89 OTHER SPECIFIED DISORDERS OF ARTERIES AN 08/07/2019 ERWIN CHANG CISCO UNIFIED COMMUNICATIONS ENGINEER Ot R60.0 LOCALIZED EDEMA 08/07/2019 ERWIN CHANG CISCO UNIFIED COMMUNICATIONS ENGINEER Ot Z72.0 TOBACCO USE 08/07/2019 KARMEN SUP Ot J44.9 CHRONIC OBSTRUCTIVE PULMONARY DISEASE, U 08/07/2019 KARMEN SU CISCO UNIFIED COMMUNICATIONS ENGINEER Ot J44.9 CHRONIC OBSTRUCTIVE PULMONARY DISEASE, U 08/07/2019 KARMEN SU CISCO UNIFIED COMMUNICATIONS ENGINEER Ot R53.1 WEAKNESS 08/07/2019 KARMEN SU CISCO UNIFIED COMMUNICATIONS ENGINEER Ot R91.8 OTHER NONSPECIFIC ABNORMAL FINDING OF [place] 08/10/2019 KARMEN SUP Ot R93.1 ABNORMAL FINDINGS ON DX IMAGING OF HEART 08/10/2019 KARMEN SUP Ot Z09 ENCNTR FOR F/U EXAM AFT TRTMT FOR COND O 08/27/2019 KARMEN SUP Ot J18.9 PNEUMONIA, UNSPECIFIED ORGANISM 08/28/2019 SHARLENEKARMEN CISCO UNIFIED COMMUNICATIONS ENGINEER Ot R93.1 ABNORMAL FINDINGS ON DX IMAGING OF HEART 08/28/2019 SHARLENEKARMEN Merlin CISCO UNIFIED COMMUNICATIONS ENGINEER Ot Z09 ENCNTR FOR F/U EXAM AFT TRTMT FOR COND O 09/01/2019 SHARLENESISCESAR Boyer CISCO UNIFIED COMMUNICATIONS ENGINEER Ot J44.9 CHRONIC OBSTRUCTIVE PULMONARY DISEASE, U 09/01/2019 SHARLENE KARMEN M CISCO UNIFIED COMMUNICATIONS ENGINEER Ot R53.1 WEAKNESS 09/01/2019 SHARLENE KARMEN M CISCO UNIFIED COMMUNICATIONS ENGINEER Ot R91.8 OTHER NONSPECIFIC ABNORMAL FINDING OF [place] 09/09/2019 SHARLENE KARMEN Merlin CISCO UNIFIED COMMUNICATIONS ENGINEER Ot J18.9 PNEUMONIA, UNSPECIFIED ORGANISM 09/17/2019 SHARLENE KARMEN M CISCO UNIFIED COMMUNICATIONS ENGINEER Ot J18.9 PNEUMONIA, UNSPECIFIED ORGANISM 09/18/2019 SHARLENE KARMEN Merlin CISCO UNIFIED COMMUNICATIONS ENGINEER Ot J18.9 PNEUMONIA, UNSPECIFIED ORGANISM 09/18/2019 SHARLENE KARMEN Merlin CISCO UNIFIED COMMUNICATIONS ENGINEER Ot J18.9 PNEUMONIA, UNSPECIFIED ORGANISM 10/06/2019 SHARLENE KARMEN Merlin CISCO UNIFIED COMMUNICATIONS ENGINEER Ot J18.9 PNEUMONIA, UNSPECIFIED ORGANISM 10/09/2019 W E29.9 Test icular dysfunction, unspecified Karmen Su 10/09/2019 W J44.9 Risk And Insurance Manager james obstructive pulmonary disease, unspecified Karmen Su 10/09/2019 W R05 Cough Karmen Su 10/09/2019 W E29.9 Test icular dysfunction, unspecified [place], [place] 10/09/2019 W E29.9 Test icular dysfunction, unspecified [place] 10/09/2019 W J44.1 Risk And Insurance Manager james obstructive pulmonary disease with (acute) exacerbation Karmen Su 10/09/2019 W R05 Cough Karmen Su 10/15/2019 Ot 414.01 10/15/2019 Ot V58.61 10/15/2019 BAIMA ERWIN L CISCO UNIFIED COMMUNICATIONS ENGINEER Ot 272.4 HYPERLIPIDEMIA NEC/NOS 10/15/2019 BAIMA, ERWIN L CISCO UNIFIED COMMUNICATIONS ENGINEER Ot 414.00 CORON ATHEROSCLER NOS TYPE VESSEL, NATIV 10/15/2019 BAIABBEY, ERWIN L CISCO UNIFIED COMMUNICATIONS ENGINEER Ot 433.10 CAROTID ARTERY OCCLUSION W O CEREBRAL IN 10/15/2019 BAIABBEY, ERWIN L CISCO UNIFIED COMMUNICATIONS ENGINEER Ot 272.4 HYPERLIPIDEMIA NEC/NOS 10/15/2019 BAIMA, ERWIN L CISCO UNIFIED COMMUNICATIONS ENGINEER Ot 305.1 TOBACCO USE DISORDER 10/15/2019 BAIMA, ERWIN L CISCO UNIFIED COMMUNICATIONS ENGINEER Ot 401.9 HYPERTENSION NOS 10/15/2019 BAIMA, ERWIN L CISCO UNIFIED COMMUNICATIONS ENGINEER Ot 414.00 CORON ATHEROSCLER NOS TYPE VESSEL, NATIV 10/15/2019 BERNARDO, ERWIN L CISCO UNIFIED COMMUNICATIONS ENGINEER Ot 4 96 CHR AIRWAY OBSTRUCT NEC 10/15/2019 KARMEN SU CISCO UNIFIED COMMUNICATIONS ENGINEER Ot 250.00 DIAB MEGGAN WO COMPL, TYPE II OR UNSPEC TY 10/15/2019 KARMEN SU CISCO UNIFIED COMMUNICATIONS ENGINEER Ot 401.9 HYPERTENSION NOS 10/15/2019 KARMEN SU CISCO UNIFIED COMMUNICATIONS ENGINEER Ot 780.4 DIZZINESS AND GIDDINESS 10/15/2019 BAIMA, ERWIN L CISCO UNIFIED COMMUNICATIONS ENGINEER Ot 272.4 HYPERLIPIDEMIA NEC/NOS 10/15/2019 BAIMA, ERWIN L CISCO UNIFIED COMMUNICATIONS ENGINEER Ot 414.00 CORON ATHEROSCLER NOS TYPE VESSEL, NATIV 10/15/2019 BARAK, JF B SUPERVISOR PASTRY Ot 298.9 PSYCHOSIS NOS 10/15/2019 CANCINO, JF B SUPERVISOR PASTRY Ot 780.4 DIZZINESS AND GIDDINESS 10/15/2019 CANCINO, JF B SUPERVISOR PASTRY Ot 780.79 OTH MALAISE FATIGUE 10/15/2019 BARAK, JF B SUPERVISOR PASTRY Ot 781.2 ABNORMALITY OF GAIT 10/15/2019 JAYDE LATHAM, GIRISH Boyer Ot 709.9 SKIN DISORDER NOS 10/15/2019 GIRISH DONOHUE MD Ot V72.84 EXAM PRE-OPERATIVE NOS 10/15/2019 KARMEN SU CISCO UNIFIED COMMUNICATIONS ENGINEER Ot 786.2 COUGH 10/15/2019 OSCAR LATHAM FAC, ALI FACP CCDS Ot E78.4 OTHER HYPERLIPIDEMIA 10/15/2019 OSCAR LATHAM FAC, ALI FACP CCDS Ot I10 ESSENTIAL (PRIMARY) HYPERTENSION 10/15/2019 OSCAR LATHAM FACC, ALI FACP CCDS Ot I25.10 ATHSCL HEART DISEASE OF [place] CORONARY 10/15/2019 OSCAR LATHAM FACC, ALI FACP CCDS Ot J43.8 OTHER EMPHYSEMA 10/15/2019 OSCAR LATHAM FACBasilio, ALI FACP CCDS Ot Z72.0 TOBACCO USE 10/15/2019 GIRISH DONOHUE MD Ot 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 10/15/2019 GIRISH DONOHUE MD Ot I1 0 ESSENTIAL (PRIMARY) HYPERTENSION 10/15/2019 JAYDE LATHAM, GIRISH Boyer Ot I25.10 ATHSCL HEART DISEASE OF [place] CORONARY 10/15/2019 JAYDE LATHAM, GIRISH Boyer Ot J44.9 CHRONIC OBSTRUCTIVE PULMONARY DISEASE, U 10/15/2019 JAYDE LATHAM, GIRISH Boyer Ot 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 10/15/2019 JAYDE LATHAM, GIRISH Boyer Ot L82.1 OTHER SEBORRHEIC KERATOSIS 10/15/2019 KARMEN SUP Ot E11.65 TYPE 2 DIABETES MELLITUS WITH HYPERGLYCE 10/15/2019 KARMEN SUP Ot E55.9 VITAMIN D DEFICIENCY, UNSPECIFIED 10/15/2019 KARMEN SUP Ot E78.2 MIXED HYPERLIPIDEMIA 10/15/2019 KARMEN SU CISCO UNIFIED COMMUNICATIONS ENGINEER Ot I10 ESSENTIAL (PRIMARY) HYPERTENSION 10/15/2019 KARMEN SUP Ot J44.9 CHRONIC OBSTRUCTIVE PULMONARY DISEASE, U 10/15/2019 BAIABBEY, ERWIN L CISCO UNIFIED COMMUNICATIONS ENGINEER Ot E78.4 OTHER HYPERLIPIDEMIA 10/15/2019 BAIMA, ERWIN L CISCO UNIFIED COMMUNICATIONS ENGINEER Ot I 10 ESSENTIAL (PRIMARY) HYPERTENSION 10/15/2019 BAIMA, ERIWN L CISCO UNIFIED COMMUNICATIONS ENGINEER Ot I25.10 ATHSCL HEART DISEASE OF [place] CORONARY 10/15/2019 BAIMA, ERWIN L CISCO UNIFIED COMMUNICATIONS ENGINEER Ot 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 10/15/2019 BAIMA, ERWIN L CISCO UNIFIED COMMUNICATIONS ENGINEER Ot E78.4 OTHER HYPERLIPIDEMIA 10/15/2019 BAIMA, ERWIN L CISCO UNIFIED COMMUNICATIONS ENGINEER Ot I 10 ESSENTIAL (PRIMARY) HYPERTENSION 10/15/2019 BAIMA, ERWIN L CISCO UNIFIED COMMUNICATIONS ENGINEER Ot I25.10 ATHSCL HEART DISEASE OF [place] CORONARY 10/15/2019 BAIMA, ERWIN L CISCO UNIFIED COMMUNICATIONS ENGINEER Ot 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 10/15/2019 KARMEN SU CISCO UNIFIED COMMUNICATIONS ENGINEER Ot I25.10 ATHSCL HEART DISEASE OF [place] CORONARY 10/15/2019 KARMEN SUP Ot J44.9 CHRONIC OBSTRUCTIVE PULMONARY DISEASE, U 10/15/2019 KARMEN SUP Ot R63.4 ABNORMAL WEIGHT LOSS 10/15/2019 KARMEN SUP Ot R91.8 OTHER NONSPECIFIC ABNORMAL FINDING OF [place] 10/15/2019 SU, KARMEN M CISCO UNIFIED COMMUNICATIONS ENGINEER Ot Z72.0 TOBACCO USE 10/15/2019 COLSUSANNE DO, ISAC A Ot J20 .8 ACUTE BRONCHITIS DUE TO OTHER SPECIFIED 10/15/2019 BAIMA, ERWIN Nas CISCO UNIFIED COMMUNICATIONS ENGINEER Ot E78.5 HYPERLIPIDEMIA, UNSPECIFIED 10/15/2019 BAIABBEY, ERWIN Lovell CISCO UNIFIED COMMUNICATIONS ENGINEER Ot I 10 ESSENTIAL (PRIMARY) HYPERTENSION 10/15/2019 BAIABBEY, ERWIN Lovell CISCO UNIFIED COMMUNICATIONS ENGINEER Ot I25.10 ATHSCL HEART DISEASE OF [place] CORONARY 10/15/2019 BAIABBEY, ERWIN Lovell CISCO UNIFIED COMMUNICATIONS ENGINEER Ot I77.89 OTHER SPECIFIED DISORDERS OF ARTERIES AN 10/15/2019 BAIMA, ERWIN Lovell CISCO UNIFIED COMMUNICATIONS ENGINEER Ot R60.0 LOCALIZED EDEMA 10/15/2019 BAIABBEY, ERWIN Nas CISCO UNIFIED COMMUNICATIONS ENGINEER Ot Z72.0 TOBACCO USE 10/15/2019 KARMEN SU CISCO UNIFIED COMMUNICATIONS ENGINEER Ot J44.9 CHRONIC OBSTRUCTIVE PULMONARY DISEASE, U 10/15/2019 KARMEN SUP Ot J44.9 CHRONIC OBSTRUCTIVE PULMONARY DISEASE, U 10/15/2019 KARMEN SUP Ot R53.1 WEAKNESS 10/15/2019 KARMEN SU CISCO UNIFIED COMMUNICATIONS ENGINEER Ot R91.8 OTHER NONSPECIFIC ABNORMAL FINDING OF [place] 10/15/2019 KARMEN SUP Ot R93.1 ABNORMAL FINDINGS ON DX IMAGING OF HEART 10/15/2019 KARMEN SUP Ot Z09 ENCNTR FOR F/U EXAM AFT TRTMT FOR COND O 10/15/2019 KARMEN SUP Ot J18.9 PNEUMONIA, UNSPECIFIED ORGANISM 10/15/2019 KARMEN SU CISCO UNIFIED COMMUNICATIONS ENGINEER Ot J18.9 PNEUMONIA, UNSPECIFIED ORGANISM 10/19/2019 KARMEN SU CISCO UNIFIED COMMUNICATIONS ENGINEER Ot J18.9 PNEUMONIA, UNSPECIFIED ORGANISM 10/19/2019 KARMEN SU CISCO UNIFIED COMMUNICATIONS ENGINEER Ot J98.11 ATELECTASIS 11/03/2019 W E29.9 Test icular dysfunction, unspecified [place], [place] 11/03/2019 W E29.9 Test icular dysfunction, unspecified [place], [place] 11/05/2019 KARMEN SU CISCO UNIFIED COMMUNICATIONS ENGINEER Ot J18.9 PNEUMONIA, UNSPECIFIED ORGANISM 11/05/2019 KARMEN SU CISCO UNIFIED COMMUNICATIONS ENGINEER Ot J98.11 ATELECTASIS 11/27/2019 W I49.9 Irre gular heart rate Karmen Su 11/27/2019 W J44.1 Risk And Insurance Manager james obstructive pulmonary disease with (acute) exacerbation Karmen Su 11/27/2019 W R05 Cough Karmen Su 11/30/2019 KARMEN SU CISCO UNIFIED COMMUNICATIONS ENGINEER Ot I48.91 UNSPECIFIED ATRIAL FIBRILLATION 11/30/2019 KARMEN SU CISCO UNIFIED COMMUNICATIONS ENGINEER Ot R05 COUGH 12/03/2019 W I49.9 Irre gular heart rate Karmen Su 12/03/2019 W J44.1 Risk And Insurance Manager james obstructive pulmonary disease with (acute) exacerbation Karmen Su 12/03/2019 W R05 Cough Karmen Su 12/04/2019 KARMEN SU CISCO UNIFIED COMMUNICATIONS ENGINEER Ot I48.91 UNSPECIFIED ATRIAL FIBRILLATION 12/04/2019 KARMEN SU CISCO UNIFIED COMMUNICATIONS ENGINEER Ot R05 COUGH 12/07/2019 W E11.65 Typ e 2 diabetes mellitus with hyperglycemia Karmen Su 12/07/2019 W E29.9 Test icular dysfunction, unspecified Karmen Su 12/07/2019 W E55.9 Brielle min D deficiency Karmen Su 12/07/2019 W I10 Essent ial (primary) hypertension Karmen Su 12/07/2019 W J44.9 Risk And Insurance Manager james obstructive pulmonary disease, unspecified Karmen Su 12/07/2019 W R63.4 Abno rmal weight loss Karmen Su 12/08/2019 W E11.65 Typ e 2 diabetes mellitus with hyperglycemia Karmen Su 12/08/2019 W E29.9 Test icular dysfunction, unspecified Karmen Su 12/08/2019 W E55.9 Brielle min D deficiency Sis Su12/08/2019 W I10 Essent ial (primary) hypertension Karmen Su 12/08/2019 W J44.9 Risk And Insurance Manager james obstructive pulmonary disease, unspecified Sis Su12/08/2019 W R63.4 Abno rmal weight loss Sis Su12/10/2019 W E11.65 Typ e 2 diabetes mellitus with hyperglycemia Karmen Su 12/10/2019 W R63.4 Abno rmal weight loss Sis Suie 12/10/2019 W E11.65 Typ e 2 diabetes mellitus with hyperglycemia Su, Karmen 12/10/2019 W E29.9 Test icular dysfunction, unspecified Su, Karmen 12/10/2019 W E55.9 Brielle min D deficiency Su, Karmen 12/10/2019 W I10 Essent ial (primary) hypertension Su, Karmen 12/10/2019 W J44.9 Risk And Insurance Manager james obstructive pulmonary disease, unspecified Su, Karmen 12/10/2019 W R63.4 Abno rmal weight loss Su, Karmen 12/10/2019 W E11.65 Typ e 2 diabetes mellitus with hyperglycemia Su, Karmen 12/10/2019 W R63.4 Abno rmal weight loss Su, Karmen 12/15/2019 W M54.5 Low back pain Violeta Ash 12/17/2019 KARMEN SU [facility] Ot I48.91 UNSPECIFIED ATRIAL FIBRILLATION 12/17/2019 KARMEN SU [facility] Ot R05 COUGH 12/22/2019 W E11.65 Typ e 2 diabetes mellitus with hyperglycemia Su, Karmen 12/24/2019 W E11.65 Typ e 2 diabetes mellitus with hyperglycemia Su, Karmen 01/12/2020 W E11.65 Typ e 2 diabetes mellitus with hyperglycemia Su, Karmen 01/12/2020 W E29.9 Test icular dysfunction, unspecified Su, Karmen 01/12/2020 W J44.9 Risk And Insurance Manager james obstructive pulmonary disease, unspecified Su, Karmen 01/12/2020 W M54.5 Low back pain Su, Karmen 01/13/2020 W E11.65 Typ e 2 diabetes mellitus with hyperglycemia Su, Karmen 01/13/2020 W E29.9 Test icular dysfunction, unspecified Su, Karmen 01/13/2020 W J44.9 Risk And Insurance Manager james obstructive pulmonary disease, unspecified Su, Karmen 01/13/2020 W M54.5 Low back pain Su, Karmen 02/10/2020 W K92.1 Jarred Chang 02/10/2020 W R19.7 Diar zeenat, rogerioified Jarred Davila 02/10/2020 W K92.1 Garima Davila, Jarred 02/10/2020 W R19.7 Diar zeenat, unspecified Taiwo, Jarred 02/10/2020 W K92.1 Melmike Davila, Jarred 02/10/2020 W R19.7 Diar zeenat, unspecified Taiwo, Jarred 02/10/2020 JARRED DAVILA SUPERVISOR PASTRY Ot K92.1 MELENA 02/10/2020 JARRED DAVILA SUPERVISOR PASTRY Ot R53.1 WEAKNESS 02/10/2020 JARRED DAVILA SUPERVISOR PASTRY Ot R53.83 OTHER FATIGUE 02/11/2020 W E29.9 Test icular dysfunction, unspecified Taiwo, Jarred 02/11/2020 W K92.1 Melena Taiwo, Jarred 02/11/2020 W R19.7 Diar zeenat, unspecified Taiwo, Jarred 02/19/2020 W R60.0 Loca lized edema Taiwo, Jarred 02/26/2020 W R60.0 Loca lized edema Taiwo, Jarred 03/04/2020 JARRED DAVILA SUPERVISOR PASTRY Ot K92.1 MELENA 03/04/2020 JARRED DAVILA SUPERVISOR PASTRY Ot R53.1 WEAKNESS 03/04/2020 JARRED DAVILA SUPERVISOR PASTRY Ot R53.83 OTHER FATIGUE 03/08/2020 W E11.65 Typ e 2 diabetes mellitus with hyperglycemia Su, Karmen 03/08/2020 W E29.9 Test icular dysfunction, unspecified Su, Karmen 03/08/2020 W I10 Essent ial (primary) hypertension Su, Karmen 03/08/2020 W J44.9 Risk And Insurance Manager james obstructive pulmonary disease, unspecified Su, Karmen 03/08/2020 W R60.0 Loca lized edema Su, Karmen 03/09/2020 W E11.65 Typ e 2 diabetes mellitus with hyperglycemia Su, Karmen 03/09/2020 W E29.9 Test icular dysfunction, unspecified Su, Karmen 03/09/2020 W I10 Essent ial (primary) hypertension Su, Karmen 03/09/2020 W J44.9 Risk And Insurance Manager james obstructive pulmonary disease, unspecified Su, Karmen 03/09/2020 W R60.0 Loca lized edema Su, Karmen 03/22/2020 Ot 414.01 03/22/2020 Ot V58.61 Procedures There is no data. Results Test Result Range Capillary blood glucose measurement by g lucometer (mass/volume) - 12/10/17 11:27 Capillary blood glucose measurement by glucometer (mas s/volume) 87 mg/dL 70-110 Methicillin resistant Staphylococcus aur eus (MRSA) screening culture - 03/19/18 14:40 Methicillin resistant Staphylococcus aureus (MRSA) scr eening culture NEG NRG Complete blood count (CBC) with automate d white blood cell (WBC) differential - 03/19/18 14:45 Blood leukocytes automated count (number/volume) 8.9 10*3/uL 4.3-11.0 Blood erythrocytes automated count (number/volume) 3.53 10*6/uL 4.35-5.85 Venous blood hemoglobin measurement (mass/volume) 12.5 g/dL 13.3-17.7 Blood hematocrit (volume fraction) 36 % 40-54 Automated erythrocyte mean corpuscular volume 103 [foz_us] 80-99 Automated erythrocyte mean corpuscular h emoglobin (mass per erythrocyte) 35 pg 25-34 Automated erythrocyte mean corpuscular h emoglobin concentration measurement (mass/volume) 35 g/dL 32-36 Automated erythrocyte distribution width ratio 14. 2 % 10.0- 14.5 Automated blood platelet count (count/volume) 194 10*3/uL [...] 10*3 1.0-4.0 Blood monocytes automated count (number/volume) 0. 6 10*3 0.0-1.0 Automated eosinophil count 0.1 10*3/uL 0 .0-0.3 Automated blood basophil count (count/volume) 0.0 10*3/uL 0.0-0.1 Whole blood basic metabolic panel - 03/29 14:45 Serum or plasma sodium measurement (moles/volume) 139 mmol/L 135-145 Serum or plasma potassium measurement (moles/volume) 4.2 mmol/L 3.6-5.0 Serum or plasma chloride measurement (moles/volume) 105 mmol/L 98-107 Carbon dioxide 26 mmol/L 21-32 Serum or plasma anion gap determination (moles/volume) 8 mmol/L 5-14 Serum or plasma urea nitrogen measurement (mass/volume ) 17 mg/dL 7-18 Serum or plasma creatinine measurement (mass/volume) 0.92 mg/dL 0.60-1.30 Serum or plasma urea nitrogen/creatinine mass ratio 18 NRG Serum or plasma creatinine measurement w ith calculation of estimated glomerular filtration rate > NRG Serum or plasma glucose measurement (mass/volume) 214 mg/dL 70-105 Serum or plasma calcium measurement (mass/volume) 9.5 mg/dL 8.5-10.1 Capillary blood glucose measurement by g lucometer (mass/volume) - 03/21/18 06:57 Capillary blood glucose measurement by glucometer (mas s/volume) 121 mg/dL 70-110 Capillary blood glucose measurement by g lucometer (mass/volume) - 03/21/18 09:49 Capillary blood glucose measurement by glucometer (mas s/volume) 121 mg/dL 70-110 Complete blood count (CBC) with automate d white blood cell (WBC) differential - 11/19/18 12:25 Blood leukocytes automated count (number/volume) 7.2 10*3/uL 4.3-11.0 Blood erythrocytes automated count (number/volume) 3.52 10*6/uL 4.35-5.85 Venous blood hemoglobin measurement (mass/volume) 11.8 g/dL 13.3-17.7 Blood hematocrit (volume fraction) 36 % 40-54 Automated erythrocyte mean corpuscular volume 101 [foz_us] 80-99 Automated erythrocyte mean corpuscular h emoglobin (mass per erythrocyte) 34 pg 25-34 Automated erythrocyte mean corpuscular h emoglobin concentration measurement (mass/volume) 33 g/dL 32-36 Automated erythrocyte distribution width ratio 15. 0 % 10.0- 14.5 Automated blood platelet count (count/volume) 205 10*3/uL 130-400 Automated blood platelet mean volume measurement 9.6 [foz_us] 7.4-10.4 Automated blood neutrophils/100 leukocytes 55 % 42-75 Automated blood lymphocytes/100 leukocytes 33 % 12-44 Blood monocytes/100 leukocytes 7 % 0-12 Automated blood eosinophils/100 leukocytes 5 % 0-10 Automated blood basophils/100 leukocytes 0 % 0-10 Blood neutrophils automated count (number/volume) 3.9 10*3 1.8-7.8 Blood lymphocytes automated count (number/volume) 2.4 10*3 1.0-4.0 Blood monocytes automated count (number/volume) 0. 5 10*3 0.0-1.0 Automated eosinophil count 0.3 10*3/uL 0 .0-0.3 Automated blood basophil count (count/volume) 0.0 10*3/uL 0.0-0.1 Whole blood basic metabolic panel - 11/10 12:25 Serum or plasma sodium measurement (moles/volume) 136 mmol/L 135-145 Serum or plasma potassium measurement (moles/volume) 4.3 mmol/L 3.6-5.0 Serum or plasma chloride measurement (moles/volume) 103 mmol/L 98-107 Carbon dioxide 25 mmol/L 21-32 Serum or plasma anion gap determination (moles/volume) 8 mmol/L 5-14 Serum or plasma urea nitrogen measurement (mass/volume ) 18 mg/dL 7-18 Serum or plasma creatinine measurement (mass/volume) 1.12 mg/dL 0.60-1.30 Serum or plasma urea nitrogen/creatinine mass ratio 16 NRG Serum or plasma creatinine measurement w ith calculation of estimated glomerular filtration rate > NRG Serum or plasma glucose measurement (mass/volume) 139 mg/dL 70-105 Serum or plasma calcium measurement (mass/volume) 9.5 mg/dL 8.5-10.1 Methicillin resistant Staphylococcus aur eus (MRSA) screening culture - 11/19/18 12:25 Methicillin resistant Staphylococcus aureus (MRSA) scr eening culture NEG NRG Capillary blood glucose measurement by g lucometer (mass/volume) - 11/28/18 07:34 Capillary blood glucose measurement by glucometer (mas s/volume) 76 mg/dL 70-110 Capillary blood glucose measurement by g lucometer (mass/volume) - 11/28/18 09:40 Capillary blood glucose measurement by glucometer (mas s/volume) 70 mg/dL 70-110 Complete blood count (CBC) with automate d white blood cell (WBC) differential - 02/09/20 16:27 Blood leukocytes automated count (number/volume) 7.6 10*3/uL 4.3-11.0 Blood erythrocytes automated count (number/volume) 3.36 10*6/uL 4.35-5.85 Venous blood hemoglobin measurement (mass/volume) 11.7 g/dL 13.3-17.7 Blood hematocrit (volume fraction) 36 % 40-54 Automated erythrocyte mean corpuscular volume 106 [foz_us] 80-99 Automated erythrocyte mean corpuscular h emoglobin (mass per erythrocyte) 35 pg 25-34 Automated erythrocyte mean corpuscular h emoglobin concentration measurement (mass/volume) 33 g/dL 32-36 Automated erythrocyte distribution width ratio 14. 7 % 10.0- 14.5 Automated blood platelet count (count/volume) 206 10*3/uL 130-400 Automated blood platelet mean volume measurement 9.3 [foz_us] 7.4-10.4 Automated blood neutrophils/100 leukocytes 62 % 42-75 Automated blood lymphocytes/100 leukocytes 28 % 12-44 Blood monocytes/100 leukocytes 7 % 0-12 Automated blood eosinophils/100 leukocytes 3 % 0-10 Automated blood basophils/100 leukocytes 0 % 0-10 Blood neutrophils automated count (number/volume) 4.7 10*3 1.8-7.8 Blood lymphocytes automated count (number/volume) 2.2 10*3 1.0-4.0 Blood monocytes automated count (number/volume) 0. 5 10*3 0.0-1.0 Automated eosinophil count 0.2 10*3/uL 0 .0-0.3 Automated blood basophil count (count/volume) 0.0 10*3/uL 0.0-0.1 Comprehensive metabolic panel - 02/09/20 16:27 Serum or plasma sodium measurement (moles/volume) 143 mmol/L 135-145 Serum or plasma potassium measurement (moles/volume) 3.9 mmol/L 3.6-5.0 Serum or plasma chloride measurement (moles/volume) 109 mmol/L 98-107 Carbon dioxide 22 mmol/L 21-32 Serum or plasma anion gap determination (moles/volume) 12 mmol/L 5-14 Serum or plasma urea nitrogen measurement (mass/volume ) 14 mg/dL 7-18 Serum or plasma creatinine measurement (mass/volume) 1.10 mg/dL 0.60-1.30 Serum or plasma urea nitrogen/creatinine mass ratio 13 NRG Serum or plasma creatinine measurement w ith calculation of estimated glomerular filtration rate > NRG Serum or plasma glucose measurement (mass/volume) 227 mg/dL 70-105 Serum or plasma calcium measurement (mass/volume) 8.9 mg/dL 8.5-10.1 Serum or plasma total bilirubin measurement (mass/volu me) 0.3 mg/dL 0.1-1.0 Serum or plasma alkaline phosphatase jamil surement (enzymatic activity/volume) 82 U/L 40-136 Serum or plasma aspartate aminotransfera se measurement (enzymatic activity/volume) 20 U/L 5-34 Serum or plasma alanine aminotransferase measurement (enzymatic activity/volume) 24 U/L 0-55 Serum or plasma protein measurement (mass/volume) 6.6 g/dL 6.4-8.2 Serum or plasma albumin measurement (mass/volume) 3.7 g/dL 3.2-4.5 CALCIUM CORRECTED 9.1 mg/dL 8.5-10.1 Coronavirus SARS-CoV-2 SO 2018 0 08:00 Coronavirus Ab [Units/volume] in Serum NOT DETECTE D Not Detecte Encounters ACCT No. Visit Date/Time Discharge Status Pt. Type Provider Facility Loc./Unit Complaint [id number] 05/06/2015 14:12:55 ACT Document Registration [id number] 03/25/2020 05:30:00 09:30:00 DIS Outpatient CORINE PIKE DO [facility] PREOP GERD, BLOOD IN STOOL [id number] 02/09/2020 16:13:00 23:59:59 CLS Outpatient JARRED DAVILA APRN [facility] LAB MELENA, FATIGUE, WEAKN ESS [id number] 11/27/2019 16:16:00 23:59:59 CLS Outpatient KARMEN SU [facility] CARD AFIB [id number] 10/15/2019 15:45:00 23:59:59 CLS Outpatient KARMEN SU [facility] RAD F/U PNEUMONIA, ATELECTASIS [id number] 09/16/2019 15:59:00 23:59:59 CLS Outpatient KARMEN SU [employer] 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 ENGINEER [facility] RAD FLU [id number] 08/25/2019 15:18:00 23:59:59 CLS Outpatient KARMEN SUP [facility] RAD FLU PNEUMONIA [id number] 08/07/2019 08:11:00 23:59:59 CLS Outpatient KARMEN SUP [facility] RAD F/U CHEST XRAY [id number] 08/03/2019 14:57:00 23:59:59 CLS Outpatient KARMEN SUP [facility] RAD COPD [id number] 03/04/2019 10:27:00 23:59:59 CLS Outpatient KARMEN SU [employer] COMM[employer]ICATION[employer] ENGINEER [facility] RAD COPD [id number] 11/20/2018 14:09:00 11:45:00 DIS Outpatient JIGNESH CHEN MD [facility] REHAB WEAKNESS;FALLS;GAIT ABN ORMALITY [id number] 11/28/2018 07:16:00 12:50:00 DIS Outpatient JIGNESH CHEN MD [facility] SD RIGHT UPPER NASAL LESIO N [id number] 11/19/2018 12:02:00 15:05:00 DIS Outpatient JIGNESH CHEN MD [facility] PREOP RIGHT UPPER NASAL LESIO N [id number] 09/16/2018 11:28:00 23:59:59 CLS Outpatient ERWIN CHANG [facility] CARD CAD, CAROTID AR TERIAL DISEASE, HTN [id number] 03/21/2018 08:30:00 23:59:59 CLS Outpatient JIGNESH CHEN MD [facility] SDC SQUAMOUS CELL NASAL SARI SUM, NASAL ALA LESION [id number] 01/05/2018 16:32:00 018 23:59:59 CLS Outpatient COLTHARP ISAC ALBRIGHT [facility] RAD J20.8 [id number] 12/10/2017 11:05:00 018 13:00:00 DIS Outpatient PIKE CORINE ALBRIGHT [facility] ENDO BELCHING/ABD PAIN/HICCU PS [id number] 12/05/2017 06:07:00 018 12:47:00 DIS Outpatient CORINE PIKE DO [facility] PREOP EGD [id number] 05/10/2017 12:49:00 017 23:59:59 CLS Outpatient KARMEN SU [facility] RAD COPD,TOBACCO US E, WT LOSS [id number] 02/04/2017 08:22:00 017 12:10:00 DIS Outpatient GIRISH DONOHUE MD [facility] ENDO CONSTIPATION, DYSPHAGI A, REFLUX [id number] 01/31/2017 06:26:00 017 14:50:00 DIS Outpatient GIRISH DONOHUE MD [facility] PREOP COLO/EGD [id number] 04/24/2016 11:08:00 016 23:59:59 CLS Outpatient ERWIN CHANG [facility] CARD CAD,CAROITD ART ERIAL DISEASE,HTN,HLP [id number] 04/20/2016 11:43:00 016 23:59:59 CLS Outpatient ERWIN CHANG [facility] CARD CAD,CAROTID ART ERIAL DISEASE,HTN,HLP [id number] 12/07/2015 12:29:00 016 23:59:59 CLS Outpatient GIRISH DONOHUE MD [facility] SDC LESIONS [id number] 12/07/2015 12:01:00 016 23:59:59 CLS Outpatient KARMEN SU [facility] LAB HTN,TYPE 2 DIAB ETES,VIT D DEF,CHRONIC OBSTRUCTIVE [id number] 11/21/2015 13:17:00 016 14:09:00 DIS Outpatient GIRISH DONOHUE MD [facility] PREOP LESIONS [id number] 06/10/2015 10:22:00 23:59:59 CLS Outpatient OSCAR LATHAM FACC, MARLENY CONTRERASP CC DS [facility] CARD COPD,CAD [id number] 05/06/2015 14:12:00 015 23:59:59 CLS Outpatient KARMEN SU [employer] COMMUNICATIONS ENGINEER [facility] RAD COUGH [id number] 03/23/2015 07:31:00 015 12:15:00 DIS Outpatient GIRISH DONOHUE MD [facility] SDC LESION [id number] 03/16/2015 11:34:00 23:59:59 CLS Outpatient GIRISH DONOHUE MD [facility] PREOP LESION [id number] 02/28/2015 18:55:00 015 21:13:00 DIS Emergency VIOTR DOMONSERRATA Geremias [facility] ER DIZZINESS,VOMITING [id number] 02/23/2015 13:01:00 015 23:59:59 CLS Outpatient JF CANCINO APRN [facility] RAD UNSTEADY GAIT,DIZZINES S, INTERMEDIATE CONFUSION, [id number] 12/30/2014 09:50:00 015 23:59:59 CLS Outpatient ERWIN CHANGP [facility] LAB CAD, HYPERLIPID EMIA [id number] 12/23/2014 16:09:00 015 23:59:59 CLS Outpatient KARMEN SUP [facility] RT DIZZINESS,DM,HT N [id number] 07/19/2014 14:32:00 014 23:59:59 CLS Outpatient ERWIN CHANGP [facility] RAD CAD,COPD,HTN,HY PERLIPADEMIA [id number] 06/01/2014 10:19:00 014 23:59:59 CLS Outpatient BAIERWIN POTTER [facility] LAB CAD, HYPERLIPAD EMIA [id number] 04/21/2014 15:28:00 014 23:59:59 CLS Outpatient TORIE ROJO MD [facility] RAD COUGH,BI CRACKL ES [id number] 01/28/2014 07:53:00 014 23:59:59 CLS Outpatient ERWIN CHANG [facility] CARD HTN,CARDIOMYOPA THY,HLP [id number] 11/23/2013 08:58:00 014 23:59:59 CLS Outpatient BAIERWIN POTTER [facility] LAB STATIN TC,HTN,H YPLIPADEMIA [id number] 05/11/2013 16:12:00 013 23:59:59 CLS Outpatient TORIE ROJO MD [facility] RAD LOW BACK PAIN [id number] 03/29/2020 08:00:00 P EN Preadmit CORINE PIKE DO [facility] ENDO GERD,BLOOD IN STOOL [id number] 03/19/2018 15:18:00 Document Registration [id number] 04/24/2016 11:07:00 Document Registration [id number] 04/24/2016 11:06:00 Document Registration [id number] 04/24/2016 11:06:00 Document Registration [id number] 06/23/2012 13:16:00 Document Registration [id number] 05/26/2012 09:47:00 Document Registration [id number] 04/01/2012 16:36:00 Document Registration [id number] 12/24/2011 14:06:00 Document Registration [id number] 11/19/2011 09:23:00 Document Registration [id number] 05/31/2011 07:52:00 Document Registration [id number] 05/18/2011 09:02:00 Document Registration [id number] 11/10/2010 09:23:00 Document Registration [id number] 06/27/2007 00:00:00 Document Registration [id number] 04/25/2017 15:53:51 04/25/2017 23:59:5 9 [facility] Outpatient
[2020-03-29 09:55] VITALS: BP 135/55
[2020-03-29 10:10] VITALS: BP 135/55
--- NOTE | 2020-03-29 11:16 | Anesthesia-General Post-Op ---
MAC Patient Condition Mental Status/LOC: Same as Preop Cardiovascular: Satisfactory Nausea/Vomiting: Absent Respiratory: Satisfactory Pain: Controlled Complications: Absent Post Op Complications Complications None Follow Up Care/Instructions Patient Instructions None needed. Anesthesiology Discharge Order Discharge Order Patient is doing well, no complaints, stable vital signs, no apparent adverse anesthesia problems. No complications reported per nursing. JARED MOORE CRNA Mar 29, 2020 11:16
--- NOTE | 2020-03-29 12:50 | OPERATIVE REPORT ---
DATE OF SERVICE: 03/29/2020 PREOPERATIVE DIAGNOSES: Gastroesophageal reflux disease, blood in stool. POSTOPERATIVE DIAGNOSES: Gastritis, reflux esophagitis, colon polyps x2. SURGEON: Corine Villatoro DO ANESTHESIA: Per RAW MATERIAL HANDLER. ESTIMATED BLOOD LOSS: Scant. COMPLICATIONS: None. PROCEDURE: Colonoscopy with hot biopsy polypectomy. PROCEDURES: EGD with biopsies, colonoscopy with hot biopsy polypectomy x2 and Sarah inking of the ascending colon polyp. INDICATION: The patient is an 84-year-old male with some blood in stool and reflux symptoms. He understands risks and benefits and wishes to proceed with procedure. Consent was signed in the chart. DESCRIPTION OF PROCEDURE: The patient was taken to the endoscopy suite, placed in left lateral recumbent position. Timeout was performed. Scope was inserted in mouth, down the esophagus, stomach and into the duodenum without difficulty. There were no polyps, masses or ulcerations within the duodenum. Scope was slowly retracted back into the stomach where it was further insufflated. Slight erythematous changes throughout the stomach were present consistent with gastritis. Biopsy of the antrum and body were obtained. Scope was retroflexed noting no other pathology. Scope was returned to its normal position, slowly withdrawn to distal esophagus, which had some slight changes consistent with reflux esophagitis. Biopsy was obtained of the GE junction. Scope was then slowly retracted back until completely removed noting no other pathology. Digital rectal exam was performed. No palpable polyps, masses or ulcerations. Scope was inserted in the rectum, advanced all the way to cecum with minimal difficulty. Prep was adequate with irrigation and suction. Scope was then slowly retracted back. There were no polyps, masses or ulcerations in the cecum. In the ascending colon, small inflamed polyp was present, which hot biopsy polypectomy was performed. He had a little bit of changes of questionable ulceration as well. Therefore, just distal to this area, Sarah ink was tattooed just distal to this area. Scope was then continuously retracted back. No other polyps, masses or ulcerations within the remainder of the ascending, transverse and descending colon. In the sigmoid colon, there began to be diverticulosis present. There is also another small polyp which hot biopsy polypectomy was performed. Scope was then slowly retracted back into the rectum, where it was also retroflexed noting no other pathology. Scope was returned to its normal position, slowly withdrawn until completely removed. The patient tolerated procedure well without any complications. He was taken to recovery room in stable condition. RECOMMENDATIONS: The patient will continue on current medications. We will continue him on omeprazole. Await biopsy results. The patient with diverticulosis, would recommend high fiber diet. The patient to follow up on biopsies of the polyps and await further recommendations pending these results. If the patient has recurrence of any symptoms, he should be reevaluated at that time. Job ID: [id number] DocumentID: [id number] Dictated Date: 03/29/2020 09:25:36 Straddle Buggy Operator Date: 03/29/2020 12:49:41 Dictated By: CORINE VILLATORO DO
== END 2020-03-29 10:10 | disposition home or self-care (01) ==
LOC: ENDO 07:06
PROVIDERS: ATTEND Surgery
DX: K21.0 Gastro-esophageal reflux disease with esophagitis (principal); K29.50 Unspecified chronic gastritis without bleeding; D12.5 Benign neoplasm of sigmoid colon; K57.30 Diverticulosis of large intestine without perforation or abscess without bleeding; K63.5 Polyp of colon; I10 Essential (primary) hypertension; I25.10 Atherosclerotic heart disease of native coronary artery without angina pectoris; E78.5 Hyperlipidemia, unspecified; J44.9 Chronic obstructive pulmonary disease, unspecified; E11.40 Type 2 diabetes mellitus with diabetic neuropathy, unspecified; M06.9 Rheumatoid arthritis, unspecified; K59.09 Other constipation; F41.9 Anxiety disorder, unspecified; F17.210 Nicotine dependence, cigarettes, uncomplicated; Z79.82 Long term (current) use of aspirin; Z79.84 Long term (current) use of oral hypoglycemic drugs; Z79.899 Other long term (current) drug therapy; Z88.1 Allergy status to other antibiotic agents; Z85.828 Personal history of other malignant neoplasm of skin
CPT/HCPCS: 82962; 88305; 88342

== ENCOUNTER 2020-04-11 11:39 | Emergency (ER) | payer MEDICARE, OTHER ==
[~2020-04-11] VITALS: Ht 180.4 cm; Wt 68.0 kg
--- NOTE | 2020-04-11 11:46 | ED Neurological Problem ---
General Chief Complaint: Neurological Problems Stated Complaint: STROKE LIKE SYMPTOMS Source: patient Exam Limitations: no limitations History of Present Illness Date Seen by Provider: Apr 11, 2020 Time Seen by Provider: 11:44 Initial Comments to ER with reports that he awakened this morning with wrist drop on the right side. The the loss of sensation and loss of motor function starts at the elbow and extends distally. He has full strength and range of motion of the upper arm at the shoulders. No troubles with speech no trouble with lower extremities. He was fine when he went to bed last night. He has tingling over the first second third and radial side of the fourth finger. The ulnar side of the fourth finger and the pinky finger retain normal sensation and motor function. He states that he was in the hospital about 2 days ago and had an IV started to the dorsal aspect of the right forearm. He states "they squeezed it real hard". There is bruising noted to the volar aspect of the forearm Timing/Duration: 4-6 hours Associated Symptoms: denies symptoms Allergies and Home Medications Allergies Coded Allergies: cefuroxime (Verified Allergy, Mild, GI UPSET, 03/22/20) Home Medications Alprazolam 0.5 Mg Tablet, 0.5 MG PO TID PRN for ANXIETY, (Reported) Aspirin 325 Mg Tablet, 325 MG PO DAILY, (Reported) Atenolol 50 Mg Tablet, 50 MG PO DAILY, (Reported) Brimonidine Tartrate 5 Ml Drops, 1 DROP OU BID, (Reported) Ca Carbonate/Vitamin D3/Vit K 1 Each Tab.chew, 1 EACH PO DAILY, (Reported) Fish Oil/Dha/Epa 1 Each Capsule, 1,200 MG PO DAILY, (Reported) Hydrocodone/Acetaminophen 1 Each Tablet, 1 EACH PO Q6H PRN for PAIN-MODERATE (5- 7), (Reported) Insulin Glargine,Hum.rec.anlog 300 Unit/1 Ml Insuln.pen, 30 UNIT SQ HS, (Reported) Insulin Lispro 100 Unit/1 Ml Insuln.pen, 4 UNIT SQ TIDPC, (Reported) Insulin Lispro 100 Unit/1 Ml Insuln.pen, 10 UNIT SQ 8PM, (Reported) Lisinopril 10 Mg Tablet, 10 MG PO DAILY, (Reported) Metformin HCl 500 Mg Tablet, 500 MG PO DAILY, (Reported) Multivits,Stress Formula 1 Each Tablet, 1 EACH PO DAILY, (Reported) Nitroglycerin 0.4 Mg Tab.subl, 0.4 MG SL PRN, (Reported) Omeprazole 20 Mg Capsule.dr, 20 MG PO DAILY, (Reported) Simvastatin 40 Mg Tablet, 40 MG PO HS, (Reported) Testosterone Cypionate 200 Mg/1 Ml Vial, 200 MG IM EVERY OTHER WEEK, (Reported) Patient Home Medication List Home Medication List Reviewed: Yes Review of Systems Review of Systems Constitutional: see HPI Eyes: No Symptoms Reported Ears, Nose, Mouth, Throat: no symptoms reported Respiratory: no symptoms reported Cardiovascular: no symptoms reported Genitourinary: no symptoms reported Musculoskeletal: see HPI Skin: no symptoms reported Psychiatric/Neurological: No Symptoms Reported Endocrine: No Symptoms Reported Past Tgkdlcu-Rzqsrt-Ghvwzp Hx Patient Social History Type Used: Cigarettes 2nd Hand Smoke Exposure: Yes Recent Foreign Travel: No Contact w/Someone Who Travel: No Recent Hopitalizations: No Immunizations Up To Date Date of Pneumonia Vaccine: May 18, 2019 Date of Influenza Vaccine: May 18, 2019 Seasonal Allergies Seasonal Allergies: No Past Medical History Surgeries: Yes (CARDIAC STENTS X 2, KIDNEY STONE REMOVAL, SKIN LESIONS) Cardiac, Coronary Stent, Gallbladder Respiratory: Yes COPD Cardiac: Yes (STENTS) Coronary Artery Disease, Heart Attack, High Cholesterol, Hypertension Neurological: Yes Neuropathy Reproductive Disorders: No Sexually Transmitted Disease: No HIV/AIDS: No Genitourinary: Yes Kidney Stones Gastrointestinal: Yes Gastroesophageal Reflux, Chronic Constipation Musculoskeletal: Yes Arthritis Endocrine: Yes Diabetes, Insulin dep HEENT: Yes (GLASSES, PARTIAL PLATE) Glaucoma Loss of Vision: Bilateral Hearing Impairment: Denies Cancer: Yes Skin Psychosocial: Yes Anxiety Integumentary: Yes Pruritis Blood Disorders: No Adverse Reaction/Blood Tranf: No (N/A) Physical Exam Vital Signs Vital Signs - First Documented 04/11/20 11:39 Pulse 93 Resp 18 B/P (MAP) 170/90 (116) Pulse Ox 96 O2 Delivery Room Air Capillary Refill : Height, Weight, BMI Height: 5'11.00" Weight: 149lbs. 6.0oz. 67.252970hp; 21.45 BMI Method:Stated General Appearance: WD/WN, no apparent distress Respiratory: no respiratory distress, no accessory muscle use Gastrointestinal: normal bowel sounds, non tender Neurologic/Psychiatric: alert, normal mood/affect, oriented x 3, other (his only deficit is in the radial nerve distribution of the right hand. He has inability to extend the wrist against resistance. He has tingling sensation over the radial nerve distribution. Normal sensation over the ulnar nerve distribution.) Crainal Nerves: normal hearing, normal speech, PERRL Skin: normal color, warm/dry Progress/Results/Core Measures Results/Orders Lab Results Laboratory Tests Test 04/11/20 11:45 Range/Units White Blood Count 7.4 4.3-11.0 10^3/uL Red Blood Count 3.48 L 4.35-5.85 10^6/uL Hemoglobin 12.1 L 13.3-17.7 G/DL Hematocrit 36 L 40-54 % Mean Corpuscular Volume 103 H 80-99 FL Mean Corpuscular Hemoglobin 35 H 25-34 PG Mean Corpuscular Hemoglobin Concent 34 32-36 G/DL Red Cell Distribution Width 13.6 10.0-14.5 % Platelet Count 212 130-400 10^3/uL Mean Platelet Volume 9.9 7.4-10.4 FL Neutrophils (%) (Auto) 65 42-75 % Lymphocytes (%) (Auto) 25 12-44 % Monocytes (%) (Auto) 7 0-12 % Eosinophils (%) (Auto) 3 0-10 % Basophils (%) (Auto) 0 0-10 % Neutrophils # (Auto) 4.8 1.8-7.8 X 10^3 Lymphocytes # (Auto) 1.9 1.0-4.0 X 10^3 Monocytes # (Auto) 0.5 0.0-1.0 X 10^3 Eosinophils # (Auto) 0.2 0.0-0.3 10^3/uL Basophils # (Auto) 0.0 0.0-0.1 10^3/uL Prothrombin Time 14.5 12.2-14.7 SEC INR Comment 1.1 0.8-1.4 Sodium Level 141 135-145 MMOL/L Potassium Level 4.1 3.6-5.0 MMOL/L Chloride Level 108 H 98-107 MMOL/L Carbon Dioxide Level 22 21-32 MMOL/L Anion Gap 11 5-14 MMOL/L Blood Urea Nitrogen 12 7-18 MG/DL Creatinine 1.10 0.60-1.30 MG/DL Estimat Glomerular Filtration Rate > 60 BUN/Creatinine Ratio 11 Glucose Level 155 H 70-105 MG/DL Calcium Level 9.3 8.5-10.1 MG/DL Corrected Calcium 9.5 8.5-10.1 MG/DL Total Bilirubin 0.4 0.1-1.0 MG/DL Aspartate Amino Transf (AST/SGOT) 23 5-34 U/L Alanine Aminotransferase (ALT/SGPT) 25 0-55 U/L Alkaline Phosphatase 92 40-136 U/L Total Protein 6.8 6.4-8.2 GM/DL Albumin 3.8 3.2-4.5 GM/DL My Orders Orders - MARQUITA VANESSA APRN Cbc With Automated Diff (04/11/20 12:04) Comprehensive Metabolic Panel (04/11/20 12:04) Protime With Inr (04/11/20 12:17) Ct Head/Cervical Spine Wo (04/11/20 12:17) Vital Signs/I&O 04/11/20 11:39 Pulse 93 Resp 18 B/P (MAP) 170/90 (116) Pulse Ox 96 O2 Delivery Room Air Departure Communication (Admissions) NAME: TASHA OSBORNE [facility] REC#: [id number] PT STATUS: REG ER : 1935 PHYSICIAN: MARQUITA VANESSA APRN ADMIT DATE: 04/11/20/ER Draft Date of Exam:04/11/20 CT HEAD/CERVICAL SPINE WO PROCEDURE: CT head and CT cervical spine without contrast. TECHNIQUE: Multiple contiguous axial images were obtained through the brain and cervical spine without the use of intravenous contrast. Sagittal and coronal reformations through the cervical spine were then performed. Auto Exposure Controls were utilized during the CT exam to meet ALARA standards for radiation dose reduction. INDICATION: Right arm and hand weakness. Neck pain. COMPARISON: CT head on 02/23/2015. FINDINGS: CT head: No large acute territorial ischemia, mass, or hemorrhage. Old lacunar infarcts are noted in the bilateral basal ganglia. No midline shift or mass effect. Decreased attenuation is seen in the periventricular and subcortical white matter. The ventricles and cortical sulci are prominent. The basilar cisterns are patent and unremarkable. The calvarium is intact. Retained secretions are seen in the antrum of the right maxillary sinus. CT cervical spine: No acute fracture or dislocation is seen in the cervical spine. No focal osseous lesions. Vertebral body heights are well-maintained. The craniocervical junction is well-maintained. Moderate degenerative changes are seen in the cervical spine with disc osteophyte complexes and uncovertebral arthropathy. Soft tissues of the neck are unremarkable. The included lung apices are clear. IMPRESSION: 1. No hemorrhage or focal intra-axial mass. No CT evidence of large acute territorial ischemia. 2. No acute fracture or dislocation in the cervical spine. 3. Generalized parenchymal volume loss with chronic microvascular disease. 4. Old lacunar infarcts in the bilateral basal ganglia. 5. Moderate degenerative changes in the cervical spine. Dictated on workstation # [id number] Dict: 04/11/20 1241 Trans: 04/11/20 1251 [facility] [id number] Interpreted by: ROBERTO MONTELONGO DO Electronically signed by: Impression Primary Impression: Acute radial nerve palsy of right upper extremity Disposition: 01 HOME, SELF-CARE Condition: Stable Departure-Patient Inst. Decision time for Depature: 12:19 Referrals: LAUREL SERRANO MD (PCP/Family) Primary Care Physician Patient Instructions: Radial Nerve Entrapment Add. Discharge Instructions: . Call Dr. Serrano today to make an appointment to be seen this week. She may wish to refer you to physical therapy. Wear the splint when you're up moving around for the next few days. All discharge instructions reviewed with patient and/or family. Voiced understanding. Copy Copies To 1: LAUREL SERRANO MD, PETER J APRN Apr 11, 2020 11:45
[2020-04-11 12:10] LABS: BASOPHILS % (AUTO) 0 % (0-10); EOSINOPHILS # (AUTO) 0.2 10^3/uL (0.0-0.3); EOSINOPHILS % (AUTO) 3 % (0-10); HEMATOCRIT 36 % (40-54); HEMOGLOBIN 12.1 G/DL (13.3-17.7); LYMPHOCYTES # (AUTO) 1.9 X 10^3 (1.0-4.0); LYMPHOCYTES % (AUTO) 25 % (12-44); MEAN CORPUSCULAR HEMOGLOBIN 35 PG (25-34); MEAN CORPUSCULAR HGB CONC 34 G/DL (32-36); MEAN CORPUSCULAR VOLUME 103 FL (80-99); MEAN PLATELET VOLUME 9.9 FL (7.4-10.4); MONOCYTES # (AUTO) 0.5 X 10^3 (0.0-1.0); MONOCYTES % (AUTO) 7 % (0-12); NEUTROPHILS # (AUTO) 4.8 X 10^3 (1.8-7.8); NEUTROPHILS % (AUTO) 65 % (42-75); PLATELET COUNT 212 10^3/uL (130-400); RED CELL DISTRIBUTION WIDTH 13.6 % (10.0-14.5); WHITE BLOOD COUNT 7.4 10^3/uL (4.3-11.0)
[2020-04-11 12:24] LABS: ALANINE AMINOTRANSFERASE 25 U/L (0-55); ALBUMIN 3.8 GM/DL (3.2-4.5); ALKALINE PHOSPHATASE 92 U/L (40-136); BILIRUBIN,TOTAL 0.4 MG/DL (0.1-1.0); BUN/CREATININE RATIO 11; CALCIUM 9.3 MG/DL (8.5-10.1); CARBON DIOXIDE 22 MMOL/L (21-32); CHLORIDE 108 MMOL/L (98-107); GFR ESTIMATED > 60; GLUCOSE 155 MG/DL (70-105); POTASSIUM 4.1 MMOL/L (3.6-5.0); SODIUM 141 MMOL/L (135-145); TOTAL PROTEIN 6.8 GM/DL (6.4-8.2)
[2020-04-11 12:33] LABS: INR 1.1 (0.8-1.4); PROTHROMBIN TIME PATIENT 14.5 SEC (12.2-14.7)
--- NOTE | 2020-04-11 12:51 | Diagnostic Imaging Report ---
PROCEDURE: CT head and CT cervical spine without contrast. TECHNIQUE: Multiple contiguous axial images were obtained through the brain and cervical spine without the use of intravenous contrast. Sagittal and coronal reformations through the cervical spine were then performed. Auto Exposure Controls were utilized during the CT exam to meet ALARA standards for radiation dose reduction. INDICATION: Right arm and hand weakness. Neck pain. COMPARISON: CT head on 02/23/2015. FINDINGS: CT head: No large acute territorial ischemia, mass, or hemorrhage. Old lacunar infarcts are noted in the bilateral basal ganglia. No midline shift or mass effect. Decreased attenuation is seen in the periventricular and subcortical white matter. The ventricles and cortical sulci are prominent. The basilar cisterns are patent and unremarkable. The calvarium is intact. Retained secretions are seen in the antrum of the right maxillary sinus. CT cervical spine: No acute fracture or dislocation is seen in the cervical spine. No focal osseous lesions. Vertebral body heights are well-maintained. The craniocervical junction is well-maintained. Moderate degenerative changes are seen in the cervical spine with disc osteophyte complexes and uncovertebral arthropathy. Soft tissues of the neck are unremarkable. The included lung apices are clear. IMPRESSION: 1. No hemorrhage or focal intra-axial mass. No CT evidence of large acute territorial ischemia. 2. No acute fracture or dislocation in the cervical spine. 3. Generalized parenchymal volume loss with chronic microvascular disease. 4. Old lacunar infarcts in the bilateral basal ganglia. 5. Moderate degenerative changes in the cervical spine. Dictated by: Dictated on workstation # [id number]
[2020-04-11 13:10] VITALS: BP 158/80
== END 2020-04-11 13:10 | disposition home or self-care (01) ==
LOC: EDUNIT# 11:39 → ER 11:39
DX: G56.31 Lesion of radial nerve, right upper limb (principal); K21.9 Gastro-esophageal reflux disease without esophagitis; E78.00 Pure hypercholesterolemia, unspecified; I10 Essential (primary) hypertension; F41.9 Anxiety disorder, unspecified; E11.9 Type 2 diabetes mellitus without complications; H40.9 Unspecified glaucoma; Z79.84 Long term (current) use of oral hypoglycemic drugs; Z95.5 Presence of coronary angioplasty implant and graft; Z88.8 Allergy status to other drugs, medicaments and biological substances; Z77.22 Contact with and (suspected) exposure to environmental tobacco smoke (acute) (chronic); Z85.828 Personal history of other malignant neoplasm of skin; Z79.82 Long term (current) use of aspirin
CPT/HCPCS: 36415; 70450; 72125; 80053; 85025; 85610; 99283

== ENCOUNTER 2020-05-19 13:12 | Outpatient (RCR) | payer MEDICARE, OTHER ==
[~2020-05-19 13:12] MED LIST changes: -HYDR-3812 PO; -PANT40TA3 PO; +PANT40TA52 PO
== END 2020-05-19 13:40 | disposition home or self-care (01) ==
PROVIDERS: ATTEND Nurse Practitioner Family
DX: G56.31 Lesion of radial nerve, right upper limb (principal); I10 Essential (primary) hypertension; E11.9 Type 2 diabetes mellitus without complications; K21.9 Gastro-esophageal reflux disease without esophagitis; F32.9 Major depressive disorder, single episode, unspecified; Z95.828 Presence of other vascular implants and grafts

== ENCOUNTER → 2020-07-26 | Outpatient (CLI) | payer MEDICARE, OTHER ==
--- NOTE | 2020-07-26 17:13 | Diagnostic Imaging Report ---
INDICATION: COPD COMPARISON: 08/25/2019. FINDINGS: Frontal and lateral views of the chest demonstrate normal heart size and pulmonary vascularity. The lungs show chronic focal area of interstitial thickening in the lateral left lung base. Otherwise, lungs are clear. There is no large effusion or pneumothorax. The visualized osseous structures show no acute abnormalities. IMPRESSION: 1. Chronic-appearing area of interstitial prominence in the lateral left lung base. 2. No new adverse interval change. Dictated by: Dictated on workstation # [id number]
== END ==
LOC: RAD 16:34
PROVIDERS: ATTEND Nurse Practitioner Family
DX: J44.9 Chronic obstructive pulmonary disease, unspecified (principal)
CPT/HCPCS: 71046

== ENCOUNTER → 2020-12-01 | Outpatient (CLI) | payer MEDICARE, OTHER ==
[~2020-12-01] MED LIST changes: +LISI10TA25 PO
[2020-12-01 13:29] LABS: HEMOGLOBIN 10.6 g/dL (13.3-17.7); MEAN PLATELET VOLUME 9.6 fL (9.0-12.2); WHITE BLOOD COUNT 6.5 10^3/uL (4.3-11.0)
[2020-12-01 13:34] LABS: BILIRUBIN,URINE NEGATIVE (NEGATIVE); CLARITY,URINE CLEAR; COLOR,URINE YELLOW; GLUCOSE, URINE (UA) NEGATIVE (NEGATIVE); KETONES,URINE TRACE (NEGATIVE); LEUKOCYTE ESTERASE ,URINE NEGATIVE (NEGATIVE); NITRITE,URINE NEGATIVE (NEGATIVE); PH,URINE 5.5 (5-9); PROTEIN,URINE TRACE (NEGATIVE)
[2020-12-01 13:41] LABS: BACTERIA,URINE NEGATIVE /HPF; RBC,URINE RARE /HPF; SQUAMOUS EPITHELIAL CELL,UR 0-2 /HPF
[2020-12-01 13:55] LABS: ALBUMIN 3.6 GM/DL (3.2-4.5); ALKALINE PHOSPHATASE 108 U/L (40-136); BILIRUBIN,TOTAL 0.4 MG/DL (0.1-1.0); BUN/CREATININE RATIO 14; CALCIUM 9.1 MG/DL (8.5-10.1); CARBON DIOXIDE 22 MMOL/L (21-32); CHLORIDE 99 MMOL/L (98-107); CREATININE SERUM 1.06 MG/DL (0.60-1.30); GFR ESTIMATED > 60; GLUCOSE 246 MG/DL (70-105); POTASSIUM 4.6 MMOL/L (3.6-5.0); SODIUM 133 MMOL/L (135-145); TOTAL PROTEIN 6.6 GM/DL (6.4-8.2)
--- NOTE | 2020-12-01 14:17 | Diagnostic Imaging Report ---
INDICATION: Abdominal pain. COMPARISON: 05/22/2007 FINDINGS: Supine and upright radiographic views of the abdomen were obtained. Extraosseous calcification measuring 1.7 x 1.1 cm is noted projecting over the left renal shadow. No unexpected radiopaque foreign bodies are seen. Small bowel loops are nondistended. There is no large collection of free intraperitoneal air. No abnormal air-fluid levels are identified. Osseous structures show age-related degenerative changes. Included portions of the lung bases show background chronic emphysematous disease. IMPRESSION: 1. Nonobstructed small bowel gas pattern. 2. Possible left renal calculus. Dictated by: Dictated on workstation # [id number]
[2020-12-01 14:24] LABS: ALANINE AMINOTRANSFERASE 31 U/L (0-55)
== END ==
LOC: RAD 12:54
PROVIDERS: ATTEND Nurse Practitioner Family
DX: R10.9 Unspecified abdominal pain (principal)
CPT/HCPCS: 36415; 74019; 80053; 81000; 85027

== ENCOUNTER → 2020-12-23 | Outpatient (CLI) | payer MEDICARE, OTHER ==
--- NOTE | 2020-12-23 14:49 | Diagnostic Imaging Report ---
INDICATION: Cough, shortness of breath. COMPARISON: July 26, 2020. TECHNIQUE: Two radiographs of the chest dated December 23, 2020. FINDINGS: The cardiac silhouette is within normal limits in size. No significant pulmonary vascular congestion. Persistent mild left basilar interstitial opacities, appearing unchanged since the prior examination and these were also present on prior imaging from August 25, 2019. Lungs are otherwise clear of focal pulmonary opacity. No pleural effusion. No pneumothorax. Scattered osseous degenerative changes without acute osseous abnormality. IMPRESSION: No acute cardiopulmonary abnormality with stable chronic left basilar scarring and/or atelectasis. Dictated by: Dictated on workstation # [id number]
== END ==
LOC: RAD 12:47
PROVIDERS: ATTEND Nurse Practitioner Family
DX: R05 Cough (principal); R06.02 Shortness of breath
CPT/HCPCS: 71046

== ENCOUNTER 2021-01-01 16:31 | Emergency (ER) | payer MEDICARE, OTHER ==
[~2021-01-01] VITALS: Ht 180.3 cm; Wt 68.0 kg
--- NOTE | 2021-01-01 16:57 | ED Cough/URI ---
General Chief Complaint: Respiratory Problems Stated Complaint: SOA Source: patient Exam Limitations: no limitations History of Present Illness Date Seen by Provider: January 01, 2021 Time Seen by Provider: 16:55 Initial Comments To ER by EMS from home with reports of pressure on the chest. This is been constant since he was diagnosed with pneumonia 3 weeks ago. However, is worse today. He denies fevers. He denies chills. No nausea no vomiting. Denies cough. He has a history of COPD and CHF as well as diabetes. I discussed CODE STATUS with him and he states that if his heart stops he would want it restarted even if that includes needing a ventilator. Timing/Duration: constant Severity/Quality: no cough Modifying Factors: Improves With Coughing Associated Symptoms: shortness of breath Allergies and Home Medications Allergies Coded Allergies: cefuroxime (Verified Allergy, Mild, GI UPSET, 03/22/20) Home Medications Alprazolam 0.5 Mg Tablet, 0.5 MG PO TID PRN for ANXIETY, (Reported) Aspirin 325 Mg Tablet, 325 MG PO DAILY, (Reported) Atenolol 50 Mg Tablet, 50 MG PO DAILY, (Reported) Brimonidine Tartrate 5 Ml Drops, 1 DROP OU BID, (Reported) Ca Carbonate/Vitamin D3/Vit K 1 Each Tab.chew, 1 EACH PO DAILY, (Reported) Fish Oil/Dha/Epa 1 Each Capsule, 1,200 MG PO DAILY, (Reported) Furosemide 40 Mg Tablet, 40 MG PO DAILY Prescribed by: MARQUITA VANESSA on 01/01/211813 Hydrocodone/Acetaminophen 1 Each Tablet, 1 EACH PO Q6H PRN for PAIN-MODERATE (5- 7), (Reported) Insulin Glargine,Hum.rec.anlog 300 Unit/1 Ml Insuln.pen, 30 UNIT SQ HS, (Reported) Insulin Lispro 100 Unit/1 Ml Insuln.pen, 4 UNIT SQ TIDPC, (Reported) Insulin Lispro 100 Unit/1 Ml Insuln.pen, 10 UNIT SQ 8PM, (Reported) Lisinopril 10 Mg Tablet, 10 MG PO DAILY, (Reported) Metformin HCl 500 Mg Tablet, 500 MG PO DAILY, (Reported) Multivits,Stress Formula 1 Each Tablet, 1 EACH PO DAILY, (Reported) Nitroglycerin 0.4 Mg Tab.subl, 0.4 MG SL PRN, (Reported) Omeprazole 20 Mg Capsule.dr, 20 MG PO DAILY, (Reported) Prednisone 20 Mg Tab, 40 MG PO DAILY Prescribed by: MARQUITA VANESSA on 01/01/211813 Simvastatin 40 Mg Tablet, 40 MG PO HS, (Reported) Testosterone Cypionate 200 Mg/1 Ml Vial, 200 MG IM EVERY OTHER WEEK, (Reported) Patient Home Medication List Home Medication List Reviewed: Yes Review of Systems Review of Systems Constitutional: see HPI EENTM: see HPI Respiratory: see HPI, dyspnea on exertion Cardiovascular: see HPI, chest pain Genitourinary: no symptoms reported Musculoskeletal: no symptoms reported Skin: no symptoms reported Psychiatric/Neurological: No Symptoms Reported Hematologic/Lymphatic: No Symptoms Reported Immunological/Allergic: no symptoms reported Past Cbpkpth-Ahzdql-Xdvcns Hx Patient Social History Alcohol Use: Denies Use Smoking Status: Current Everyday Smoker Type Used: Cigarettes 2nd Hand Smoke Exposure: Yes Recent Hopitalizations: No Immunizations Up To Date Date of Pneumonia Vaccine: May 18, 2019 Date of Influenza Vaccine: May 18, 2019 Seasonal Allergies Seasonal Allergies: No Past Medical History Surgeries: Yes (CARDIAC STENTS X 2, KIDNEY STONE REMOVAL, SKIN LESIONS) Cardiac, Coronary Stent, Gallbladder Respiratory: Yes Pneumonia, COPD Cardiac: Yes (STENTS) Coronary Artery Disease, Heart Attack, High Cholesterol, Hypertension Neurological: Yes Neuropathy Reproductive Disorders: No Sexually Transmitted Disease: No HIV/AIDS: No Genitourinary: Yes Kidney Stones Gastrointestinal: Yes Gastroesophageal Reflux, Chronic Constipation Musculoskeletal: Yes Arthritis Endocrine: Yes Diabetes, Insulin dep HEENT: Yes (GLASSES, PARTIAL PLATE) Glaucoma Loss of Vision: Bilateral Hearing Impairment: Denies Cancer: Yes Skin Psychosocial: Yes Anxiety Integumentary: Yes Pruritis Blood Disorders: No Adverse Reaction/Blood Tranf: No (N/A) Physical Exam Vital Signs - First Documented 01/01/21 16:33 Temp 36.0 Pulse 77 Resp 20 B/P (MAP) 165/77 (106) Pulse Ox 93 O2 Delivery Room Air Capillary Refill : Height: 5'11.00" Weight: 149lbs. 6.0oz. 67.001561ov; 20.00 BMI Method:Stated General Appearance: WD/WN, no apparent distress, other (Alert and oriented very pleasant no distress. Heart rate is 80 her oxygen saturation is 93% on room air with a respiratory rate of 19. Blood pressure 156/80.) Neck: non-tender, full range of motion Respiratory: no respiratory distress, no accessory muscle use, decreased breath sounds Cardiovascular: regular rate, rhythm, no murmur Gastrointestinal: normal bowel sounds, non tender Neurologic/Psychiatric: alert, normal mood/affect, oriented x 3 Skin: normal color, warm/dry Progress/Results/Core Measures Suspected Sepsis SIRS Temperature: Pulse: Respiratory Rate: Laboratory Tests 01/01/21 16:35: White Blood Count 12.3H Blood Pressure / Mean: Laboratory Tests 01/01/21 16:35: Creatinine 1.05, Platelet Count 183, Total Bilirubin 0.7 01/01/21 17:15: INR Comment 1.0 Results/Orders Lab Results Laboratory Tests Test 01/01/21 16:35 01/01/21 17:15 Range/Units White Blood Count 12.3 H 4.3-11.0 10^3/uL Red Blood Count 3.03 L 4.30-5.52 10^6/uL Hemoglobin 10.9 L 13.3-17.7 g/dL Hematocrit 31 L 40-54 % Mean Corpuscular Volume 103 H 80-99 fL Mean Corpuscular Hemoglobin 36 H 25-34 pg Mean Corpuscular Hemoglobin Concent 35 32-36 g/dL Red Cell Distribution Width 13.9 10.0-14.5 % Platelet Count 183 130-400 10^3/uL Mean Platelet Volume 9.7 9.0-12.2 fL Immature Granulocyte % (Auto) 1 % Neutrophils (%) (Auto) 87 H 42-75 % Lymphocytes (%) (Auto) 9 L 12-44 % Monocytes (%) (Auto) 3 0-12 % Eosinophils (%) (Auto) 0 0-10 % Basophils (%) (Auto) 0 0-10 % Neutrophils # (Auto) 10.7 H 1.8-7.8 10^3/uL Lymphocytes # (Auto) 1.1 1.0-4.0 10^3/uL Monocytes # (Auto) 0.4 0.0-1.0 10^3/uL Eosinophils # (Auto) 0.0 0.0-0.3 10^3/uL Basophils # (Auto) 0.0 0.0-0.1 10^3/uL Immature Granulocyte # (Auto) 0.1 0.0-0.1 10^3/uL Neutrophils % (Manual) 86 % Lymphocytes % (Manual) 10 % Monocytes % (Manual) 4 % Eosinophils % (Manual) 0 % Basophils % (Manual) 0 % Band Neutrophils 0 % Blood Morphology Comment NORMAL Sodium Level 134 L 135-145 MMOL/L Potassium Level 4.3 3.6-5.0 MMOL/L Chloride Level 99 98-107 MMOL/L Carbon Dioxide Level 24 21-32 MMOL/L Anion Gap 11 5-14 MMOL/L Blood Urea Nitrogen 22 H 7-18 MG/DL Creatinine 1.05 0.60-1.30 MG/DL Estimat Glomerular Filtration Rate > 60 BUN/Creatinine Ratio 21 Glucose Level 263 H 70-105 MG/DL Calcium Level 9.1 8.5-10.1 MG/DL Corrected Calcium 9.5 8.5-10.1 MG/DL Magnesium Level 1.4 L 1.6-2.4 MG/DL Total Bilirubin 0.7 0.1-1.0 MG/DL Aspartate Amino Transf (AST/SGOT) 23 5-34 U/L Alanine Aminotransferase (ALT/SGPT) 57 H 0-55 U/L Alkaline Phosphatase 79 40-136 U/L Myoglobin 37.6 10.0-92.0 NG/ML Troponin I < 0.028 <0.028 NG/ML B-Type Natriuretic Peptide 221.2 H <100.0 PG/ML Total Protein 6.0 L 6.4-8.2 GM/DL Albumin 3.5 3.2-4.5 GM/DL Procalcitonin 0.13 H <0.10 NG/ML Prothrombin Time 14.0 12.2-14.7 SEC INR Comment 1.0 0.8-1.4 Activated Partial Thromboplast Time 22 L 24-35 SEC My Orders Orders - MARQUITA VANESSA COUNT ROOM CLERK Cbc With Automated Diff (01/01/21 16:54) Magnesium (01/01/21 16:54) Chest 1 View, Ap/Pa Only (01/01/21 16:54) Ekg Tracing (01/01/21 16:54) Comprehensive Metabolic Panel (01/01/21 16:54) Myoglobin Serum (01/01/21 16:54) Protime With Inr (01/01/21 16:54) Partial Thromboplastin Time (01/01/21 16:54) O2 (01/01/21 16:54) Monitor-Rhythm Ecg Trace Only (01/01/21 16:54) Lipid Panel (01/02/21 06:00) Ed Iv/Invasive Line Start (01/01/21 16:54) BNP (01/01/21 16:54) Procalcitonin (Pct) (01/01/21 16:35) Troponin I (01/01/21 16:35) Manual Differential (01/01/21 16:35) Albuterol/Ipra Inhalation Soln (Duoneb I (01/01/21 17:45) Svn Small Volume Nebulizer (01/01/21 17:35) Prednisone Tablet (Deltasone Tablet) (01/01/21 18:15) Medications Given in ED Current Medications Medications Dose Ordered Sig/Yoly Route Start Time Stop Time Status Last Admin Dose Admin Albuterol/ Ipratropium 3 ml ONCE ONCE INH 01/01/21 17:45 01/01/21 17:46 DC 01/01/21 18:01 3 ML Vital Signs/I&O 01/01/21 01/01/21 16:33 18:02 Temp 36.0 Pulse 77 Resp 20 B/P (MAP) 165/77 (106) Pulse Ox 93 100 O2 Delivery Room Air Room Air Capillary Refill : Departure Communication (Admissions) [id number]-/daughter concerned about the swelling in his feet. I offered them a dose of Lasix and recommended compression stockings but they decline on his behalf. He reports improvement in the chest tightness (of three weeks duration) after administration of duoneb. states they have nebulizer and albuterol at home but he hasnt been using it. Impression Primary Impression: COPD exacerbation Disposition: 01 HOME, SELF-CARE Condition: Stable Departure-Patient Inst. Decision time for Depature: 18:07 Referrals: LAUREL ASH MD (PCP/Family) Primary Care Physician Patient Instructions: COPD Exacerbation, Adult ED Add. Discharge Instructions: 1. Take the steroids as directed. Use the albuterol inhaler every 4 hours while at home for the next [address] Ash tomorrow to make an appointment to be seen for follow-up. Elevate the feet as much as possible Scripts Furosemide (Lasix) 40 Mg Tablet 40 MG PO DAILY, #2 TAB Prov: VANESSAMARQUITA DARBY APRN 01/01/21 Prednisone (Prednisone) 20 Mg Tab 40 MG PO DAILY, #4 TAB 0 Refills Prov: MARQUITA VANESSA APRN 01/01/21 Copy Copies To 1: LAUREL ASH MD, PETER J APRN January 01, 2021 16:57
[2021-01-01 17:06] LABS: BASOPHILS % (AUTO) 0 % (0-10); EOSINOPHILS % (AUTO) 0 % (0-10); HEMATOCRIT 31 % (40-54); HEMOGLOBIN 10.9 g/dL (13.3-17.7); LYMPHOCYTES # (AUTO) 1.1 10^3/uL (1.0-4.0); LYMPHOCYTES % (AUTO) 9 % (12-44); MEAN CORPUSCULAR HEMOGLOBIN 36 pg (25-34); MEAN CORPUSCULAR HGB CONC 35 g/dL (32-36); MEAN CORPUSCULAR VOLUME 103 fL (80-99); MEAN PLATELET VOLUME 9.7 fL (9.0-12.2); MONOCYTES # (AUTO) 0.4 10^3/uL (0.0-1.0); MONOCYTES % (AUTO) 3 % (0-12); NEUTROPHILS # (AUTO) 10.7 10^3/uL (1.8-7.8); NEUTROPHILS % (AUTO) 87 % (42-75); PLATELET COUNT 183 10^3/uL (130-400); WHITE BLOOD COUNT 12.3 10^3/uL (4.3-11.0)
[2021-01-01 17:11] LABS: ALBUMIN 3.5 GM/DL (3.2-4.5); CHLORIDE 99 MMOL/L (98-107); POTASSIUM 4.3 MMOL/L (3.6-5.0); SODIUM 134 MMOL/L (135-145)
[2021-01-01 17:13] LABS: CALCIUM 9.1 MG/DL (8.5-10.1)
[2021-01-01 17:14] LABS: GLUCOSE 263 MG/DL (70-105)
[2021-01-01 17:15] LABS: CARBON DIOXIDE 24 MMOL/L (21-32)
[2021-01-01 17:16] LABS: BILIRUBIN,TOTAL 0.7 MG/DL (0.1-1.0)
[2021-01-01 17:17] LABS: ALKALINE PHOSPHATASE 79 U/L (40-136); CREATININE SERUM 1.05 MG/DL (0.60-1.30); GFR ESTIMATED > 60
[2021-01-01 17:18] LABS: BUN/CREATININE RATIO 21
[2021-01-01 17:20] LABS: ALANINE AMINOTRANSFERASE 57 U/L (0-55)
[2021-01-01 17:21] LABS: MAGNESIUM 1.4 MG/DL (1.6-2.4)
[2021-01-01 17:22] LABS: BAND NEUTROPHILS 0 %; BASOPHILS % (MANUAL) 0 %; EOSINOPHILS % (MANUAL) 0 %; LYMPHOCYTES % (MANUAL) 10 %; MONOCYTES % (MANUAL) 4 %; NEUTROPHILS % (MANUAL) 86 %; RBC MORPH NORMAL
--- NOTE | 2021-01-01 17:24 | Diagnostic Imaging Report ---
HISTORY: Chest pain. COMPARISON: 12/23/2020. TECHNIQUE: Frontal view of the chest. FINDINGS: There are linear opacities in the lung bases which likely represent atelectasis. The cardiac silhouette is normal in size. There is aortic atherosclerosis. No pleural effusion or pneumothorax is seen. IMPRESSION: Bibasilar opacities likely represent atelectasis or scarring. No new consolidation is seen. Dictated by: Dictated on workstation # [id number]
[2021-01-01] MEDS ORDERED: RT-ALBUTEROL/IPRATROPIUM 3 ML (DUONEB) VIAL INH ONE (17:45)
[2021-01-01] MEDS ORDERED: PRD20T PO (18:14)
[2021-01-01] MEDS ORDERED: FURO-124 PO (18:14)
[2021-01-01] MEDS ORDERED: predniSONE 20 MG TAB PO ONE (18:15)
[2021-01-01 18:27] VITALS: BP 134/75
== END 2021-01-01 18:27 | disposition home or self-care (01) ==
LOC: EDUNIT# 16:31 → ER 16:33
DX: J44.1 Chronic obstructive pulmonary disease with (acute) exacerbation (principal); M79.89 Other specified soft tissue disorders; I11.0 Hypertensive heart disease with heart failure; I50.9 Heart failure, unspecified; E78.00 Pure hypercholesterolemia, unspecified; I25.10 Atherosclerotic heart disease of native coronary artery without angina pectoris; E11.40 Type 2 diabetes mellitus with diabetic neuropathy, unspecified; K21.9 Gastro-esophageal reflux disease without esophagitis; F41.9 Anxiety disorder, unspecified; F17.210 Nicotine dependence, cigarettes, uncomplicated; Z95.5 Presence of coronary angioplasty implant and graft; Z79.4 Long term (current) use of insulin; Z79.82 Long term (current) use of aspirin; Z79.899 Other long term (current) drug therapy
CPT/HCPCS: 36415; 71045; 80053; 83735; 83874; 83880; 84145; 84484; 85007; 85027; 85610; 85730; 93005; 93041; 94640

== ENCOUNTER 2021-01-10 15:13 | Inpatient (IN) | payer MEDICARE, OTHER ==
[~2021-01-10] VITALS: Ht 170 cm; Wt 64.3 kg
[~2021-01-10 15:13] MED LIST changes: +FURO-124 PO; +PRD20T PO
[2021-01-10] MEDS ORDERED: NS IV 1000 ML 1,000 ML ONE (15:49)
[2021-01-10] MEDS: NS IV 1000 ML 1,000 ML IV SCH (16:13)
[2021-01-10] MEDS ORDERED: CATHETER FLUSH 10 ML SYR IV PRN (16:15)
[2021-01-10] MEDS ORDERED: ONDANSETRON 4 MG/2 ML (SDV) Z0FRAN IV PRN (16:15)
[2021-01-10 16:20] VITALS: BP 132/65
[2021-01-10 16:20] LABS: HEMATOCRIT 33 % (40-54); HEMOGLOBIN 11.1 g/dL (13.3-17.7); MEAN CORPUSCULAR HEMOGLOBIN 35 pg (25-34); MEAN CORPUSCULAR HGB CONC 34 g/dL (32-36); MEAN CORPUSCULAR VOLUME 104 fL (80-99); MEAN PLATELET VOLUME 10.1 fL (9.0-12.2); PLATELET COUNT 192 10^3/uL (130-400); WHITE BLOOD COUNT 9.3 10^3/uL (4.3-11.0)
[2021-01-10 16:21] LABS: ALBUMIN 3.3 GM/DL (3.2-4.5); CHLORIDE 99 MMOL/L (98-107); POTASSIUM 4.3 MMOL/L (3.6-5.0); SODIUM 135 MMOL/L (135-145)
[2021-01-10 16:23] LABS: CALCIUM 8.9 MG/DL (8.5-10.1)
[2021-01-10 16:24] LABS: GLUCOSE 179 MG/DL (70-105)
[2021-01-10 16:25] LABS: CARBON DIOXIDE 23 MMOL/L (21-32)
[2021-01-10 16:26] LABS: BILIRUBIN,TOTAL 0.7 MG/DL (0.1-1.0)
[2021-01-10 16:27] LABS: ALKALINE PHOSPHATASE 78 U/L (40-136); CREATININE SERUM 1.04 MG/DL (0.60-1.30); GFR ESTIMATED > 60
[2021-01-10 16:28] LABS: BUN/CREATININE RATIO 16
[2021-01-10 16:30] LABS: ALANINE AMINOTRANSFERASE 43 U/L (0-55)
[2021-01-10] MEDS ORDERED: NICOTINE 14 MG (NICODERM) PATCH TD SCH (16:30)
--- NOTE | 2021-01-10 16:48 | Diagnostic Imaging Report ---
INDICATION: COPD. Time of exam: 4:25 PM Correlation is made with prior chest from 01/01/2021. Heart size is stable. Chronic opacities in the lung bases in the region of costophrenic angles bilaterally are again noted, greatest on the left. This is similar to prior study. Mid and upper lung santos are clear. There is no effusion. The lungs are hyperinflated consistent with COPD. No pneumothorax is identified. IMPRESSION: Stable bibasilar opacities when compared with examination from 12/23/2020. Dictated by: Dictated on workstation # [id number]
[2021-01-10] MEDS ORDERED: HOLD METFORMIN - RECEIVED CONTRAST 20 ML VIAL IV SCH (18:00)
[2021-01-10] MEDS ORDERED: NS 100 ML (IVPB) BAG IV ONE (18:00)
[2021-01-10] MEDS ORDERED: IOHEXOL 350 MG/ML 100 ML (OMNIPAQUE 350) VIAL IV ONE (18:00)
[2021-01-10 18:06] VITALS: BP 132/65
[2021-01-10] MEDS ORDERED: RT-ALBUTEROL/IPRATROPIUM 3 ML (DUONEB) VIAL INH PRN (18:15)
--- NOTE | 2021-01-10 18:16 | Diagnostic Imaging Report ---
INDICATION: Abdominal pain. Pre and postcontrast axial imaging through the abdomen and pelvis was performed utilizing CT angiography protocol. Multiplanar, 3-D and MIP reformations were also performed. Imaging through lung bases does show some interstitial and airspace infiltrate in the left lower lobe suggestive of pneumonia. Lesser interstitial changes in the right lower lobe are noted. Acuity or chronicity of these are indeterminate. Liver is unremarkable. Gallbladder surgically absent. Pancreas is atrophic. Spleen is unremarkable. No adrenal mass is detected. Kidneys are unremarkable. Aorta is heavily calcified and contains a large amount of mural plaque. There appears to be a short segment dissection below the level of the renal vessels. Iliacs are heavily calcified as well. Celiac and its branches appear to be patent. The SMA appears patent. The GEORGE is patent. There are single renal arteries bilaterally. Bowel loops are normal caliber. There is moderate stool in the colon. There is diverticulosis of the sigmoid but no evidence of acute diverticulitis. There is no free fluid or fluid collection identified. Bony structures show a large amount of degenerative changes but no acute bony abnormalities detected. Prostate is enlarged. There are fat-containing inguinal hernias bilaterally. IMPRESSION: 1. Bibasilar interstitial and airspace opacities consistent with acuity indeterminate infiltrates. This is greatest on the left. 2. 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 The great vessels arising from the aorta appear to be widely patent. 3. Uncomplicated diverticulosis. 4. Prostatomegaly. 5. Fat-containing bilateral inguinal hernias. Dictated by: Dictated on workstation # [id number]
--- NOTE | 2021-01-10 19:05 | History & Physical ---
History of Present Illness History of Present Illness Reason for visit/HPI PT PRESENTED TO THE OFFICE WITH MULTIPLE COMPLAINTS, ELEVATED BLOOD GLUCOSE READINGS, NASAL CONGESTION, SHORTNESS OF BREATH, COUGH. HE REPORTS PAIN IN HIS LOWER ABDOMEN WITH CONSTIPATION, AND DIFFICULTY HAVING BOWEL MOVEMENTS. HIS REPORTS THAT SHE IS UNABLE TO GET HIM TO EAT VERY MUCH. HIS ALSO REPORTS MUSCLE WEAKNESS WITH GAIT INSTABILITY THAT IS GETTING WORSE. THE FAMILY REQUESTS SOME SORT OF IMAGING OF HIS CHEST AND ABDOMEN. Date of Admission Jan 10, 2021 at 15:35 Date Seen by a Provider: Jan 10, 2021 Time Seen by a Provider: 15:10 Attending Physician Laurel Ash MD Admitting Physician Laurel Ash MD Consult Allergies and Home Medications Allergies Coded Allergies: cefuroxime (Verified Allergy, Mild, GI UPSET, 03/22/20) Home Medications Alprazolam 0.5 Mg Tablet, 0.5 MG PO TID PRN for ANXIETY, (Reported) Last Action: Continued Aspirin 325 Mg Tablet, 325 MG PO DAILY, (Reported) Last Action: Continued Atenolol 50 Mg Tablet, 50 MG PO DAILY, (Reported) Last Action: Continued Brimonidine Tartrate 5 Ml Drops, 1 DROP OU BID, (Reported) Last Action: Converted Ca Carbonate/Vitamin D3/Vit K 1 Each Tab.chew, 1 EACH PO DAILY, (Reported) Last Action: Held Fish Oil/Dha/Epa 1 Each Capsule, 1,200 MG PO DAILY, (Reported) Last Action: Held Furosemide 40 Mg Tablet, 40 MG PO DAILY Prescribed by: MARQUITA VANESSA on 01/01/211813 Last Action: Held Hydrocodone/Acetaminophen 1 Each Tablet, 1 EACH PO Q6H PRN for PAIN-MODERATE (5- 7), (Reported) Last Action: Continued Insulin Glargine,Hum.rec.anlog 300 Unit/1 Ml Insuln.pen, 30 UNIT SQ HS, (Reported) Last Action: Converted Insulin Lispro 100 Unit/1 Ml Insuln.pen, 4 UNIT SQ TIDPC, (Reported) Last Action: Converted Insulin Lispro 100 Unit/1 Ml Insuln.pen, 10 UNIT SQ 8PM, (Reported) Last Action: Converted Lisinopril 10 Mg Tablet, 10 MG PO DAILY, (Reported) Last Action: Continued Multivits,Stress Formula 1 Each Tablet, 1 EACH PO DAILY, (Reported) Last Action: Held Nitroglycerin 0.4 Mg Tab.subl, 0.4 MG SL PRN, (Reported) Last Action: Continued Omeprazole 20 Mg Capsule.dr, 20 MG PO DAILY, (Reported) Last Action: Continued Simvastatin 40 Mg Tablet, 40 MG PO HS, (Reported) Last Action: Continued Testosterone Cypionate 200 Mg/1 Ml Vial, 200 MG IM EVERY OTHER WEEK, (Reported) Last Action: Held Patient Home Medication List Home Medication List Reviewed: Yes Past Fsczlto-Dghnqh-Jhwprm Hx Past Med/Social Hx: Reviewed Nursing Past Med/Soc Hx, Reviewed and Corrections made Patient Social History Marrital Status: Number of Children: 5 Living Status: LIVES WITH SPOUSE IN THEIR HOME Employed/Student: retired Alcohol Use: Denies Use Smoking Status: Current Everyday Smoker Cigaretts per day: 20 Type Used: Cigarettes 2nd Hand Smoke Exposure: Yes Physical Abuse Screen: No Sexual Abuse: No Recent Foreign Travel: No Contact w/other who traveled: No Recent Hopitalizations: No Recent Infectious Disease Expo: No Immunizations Up To Date Date of Pneumonia Vaccine: May 18, 2019 Date of Influenza Vaccine: May 18, 2019 Seasonal Allergies Seasonal Allergies: No Past Medical History Surgeries: Cardiac, Coronary Stent, Gallbladder Cardiac: Coronary Artery Disease, Heart Attack, High Cholesterol, Hypertension Neurological: Neuropathy Reproductive: No Sexually Transmitted Disease: No HIV/AIDS: No Genitourinary: Kidney Stones Gastrointestinal: Gastroesophageal Reflux, Chronic Constipation Musculoskeletal: Arthritis Endocrine: Diabetes, Insulin dep HEENT: Glaucoma Loss of Vision: Bilateral Hearing Impairment: Denies Cancer: Skin Psychosocial: Anxiety Skin/Integumentary: Pruritis History of Blood Disorders: No Adverse Reaction to Blood [place]: No (N/A) Family History Reviewed and Corrections made Cancer (LYMPHOMA), Hypertension, Stroke Review of Systems Constitutional: No chills, No diaphoresis, No fever; malaise, weakness EENTM: No hearing loss, No hoarseness, No throat pain Respiratory: cough, dyspnea on exertion, short of breath Gastrointestinal: abdominal pain, constipation; No loss of appetite; nausea; No vomiting Genitourinary: no symptoms reported Musculoskeletal: back pain, muscle weakness Skin: no symptoms reported Psychiatric/Neurological: Anxiety; Denies Depressed; Weakness Physical Exam Vital Signs Vital Signs - First Documented 01/10/21 01/10/21 16:20 18:06 Temp 36.2 Pulse 101 Resp 18 B/P (MAP) 132/65 (87) Pulse Ox 92 O2 Delivery Room Air FiO2 21 Capillary Refill : Height, Weight, BMI Height: 5'11.00" Weight: 149lbs. 6.0oz. [id number]; 23.52 BMI Method:Stated General Appearance: No Apparent Distress, WD/WN HEENT: PERRL/EOMI, Pharynx Normal Neck: Full Range of Motion, Normal Inspection, Non Tender, Supple Respiratory: Chest Non Tender, Crackles (IN BASES), Decreased Breath Sounds; No Respiratory Distress; Rhonci Cardiovascular: Regular Rate, Rhythm Gastrointestinal: Normal Bowel Sounds, No Organomegaly, No Pulsatile Mass, Non Tender, Soft Rectal: Deferred Back: Normal Inspection, No Vertebral Tenderness Extremity: Normal Capillary Refill, Normal Range of Motion, Non Tender, No Calf Tenderness Neurologic/Psychiatric: Alert, Oriented x3, No Motor/Sensory Deficits, Normal Mood/Affect, service learning coordinator II-XII Norm as Tested Skin: Normal Color, Warm/Dry Lymphatic: No Adenopathy Assessment/Plan Assessment and Plan DEHYDRATION ABDOMINAL PAIN PNEUMONIA TOBACCOISM COPD WEAKNESS GAIT INSTABILITY DEHYDRATION - IV FLUID - NS AT 75ML/HR ABDOMINAL PAIN - CT ABDOMEN AND PELVIS - SEE REPORT BELOW - - WILL ORDER SENNA FOR CONSTIPATION PNEUMONIA - SEEN ON CT SCAN - STARTED ON LEVAQUIN, MONITOR CRX TOMORROW. - START ON BREATHING TREATMENT PER MAT PROTOCOL, OXYGEN AT 2 L NC TOBACCOISM - PT TO BE ON NICODERM PATCHES WHILE IN THE HOSPITAL. COPD - STARTED ON MAT PROTOCOL, MONITOR SYMPTOMS WEAKNESS WITH GAIT INSTABILITY - WILL START PHYSICAL THERAPY AND REQUEST IRF EVAL WELL. CT ANGIO ABD/PELV W WO INDICATION: Abdominal pain. Pre and postcontrast axial imaging through the abdomen and pelvis was performed utilizing CT angiography protocol. Multiplanar, 3-D and MIP reformations were also performed. Imaging through lung bases does show some interstitial and airspace infiltrate in the left lower lobe suggestive of pneumonia. Lesser interstitial changes in the right lower lobe are noted. Acuity or chronicity of these are indeterminate. Liver is unremarkable. Gallbladder surgically absent. Pancreas is atrophic. Spleen is unremarkable. No adrenal mass is detected. Kidneys are unremarkable. Aorta is heavily calcified and contains a large amount of mural plaque. There appears to be a short segment dissection below the level of the renal vessels. Iliacs are heavily calcified as well. Celiac and its branches appear to be patent. The SMA appears patent. The GEORGE is patent. There are single renal arteries bilaterally. Bowel loops are normal caliber. There is moderate stool in the colon. There is diverticulosis of the sigmoid but no evidence of acute diverticulitis. There is no free fluid or fluid collection identified. Bony structures show a large amount of degenerative changes but no acute bony ab normalities detected. Prostate is enlarged. There are fat-containing inguinal hernias bilaterally. IMPRESSION: 1. Bibasilar interstitial and airspace opacities consistent with acuity indeterminate infiltrates. This is greatest on the left. 2. 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 The great vessels arising from the aorta appear to be widely patent. 3. Uncomplicated diverticulosis. 4. Prostatomegaly. 5. Fat-containing bilateral inguinal hernias. Interpreted by: JOJO NESS MD Electronically signed by: JOJO NESS MD 01/10/21 3600 Admission Diagnosis DEHYDRATION ABDOMINAL PAIN PNEUMONIA TOBACCOISM COPD WEAKNESS GAIT INSTABILITY Admission Status: Inpatient Order (span 2 midnights) Reason for Inpatient Admission: INPT ADMISSION FOR AT LEAST 48 HOURS FOR IV ANTIBIOTICS, AND PHYSICAL THERAPY LAUREL ASH MD Jan 10, 2021 19:05
[2021-01-10 19:16] LABS: BILIRUBIN,URINE NEGATIVE (NEGATIVE); CLARITY,URINE CLEAR; COLOR,URINE YELLOW; GLUCOSE, URINE (UA) NEGATIVE (NEGATIVE); KETONES,URINE NEGATIVE (NEGATIVE); LEUKOCYTE ESTERASE ,URINE NEGATIVE (NEGATIVE); NITRITE,URINE NEGATIVE (NEGATIVE); PROTEIN,URINE NEGATIVE (NEGATIVE)
[2021-01-10 19:23] LABS: BACTERIA,URINE NEGATIVE /HPF; SQUAMOUS EPITHELIAL CELL,UR RARE /HPF
[2021-01-10 19:28] VITALS: BP 109/57
[2021-01-10] MEDS ORDERED: NON-FORMULARY MEDICATION 1 EA EA (Insulin Lispro (Humalog Kwikpen) 10 UNIT) SQ SCH (19:30)
[2021-01-10] MEDS ORDERED: NITROGLYCERIN 0.4 MG SL TABS BTL 25'S SL PRN (19:30)
[2021-01-10] MEDS ORDERED: inSUlin ASPART (NovoLOG) 1 UNIT/0.01 ML (CHARGE PER UNIT) SC SCH (20:00)
[2021-01-10] MEDS ORDERED: NON-FORMULARY MEDICATION 1 EA EA (Brimonidine Tartrate (Alphagan P) 1 DROP) OU SCH (21:00)
[2021-01-10] MEDS ORDERED: [UNRECOGNIZED DRUG - OTHER] SQ SCH (21:00)
[2021-01-10] MEDS ORDERED: INSULIN GLARGINE HUM REC ANLOG 30 UNIT SQ SCH (21:00)
[2021-01-10] MEDS: NICOTINE PATCH REMOVAL TP SCH (21:10)
[2021-01-10] MEDS: NICOTINE 14 MG (NICODERM) PATCH TD SCH (21:10)
[2021-01-10] MEDS: SIMvastatin 40 MG (ZOCOR) TAB PO SCH (21:11)
[2021-01-10] MEDS: BRIMONIDINE 0.2% (ALPHAGAN) OPHTH SOLN 5 ML BTL OU SCH (21:11)
[2021-01-10] MEDS: LACTOBACILLUS ACIDOPHILUS (PROBIOTIC) CAPSULE PO SCH (21:11)
[2021-01-10] MEDS: RT-ALBUTEROL/IPRATROPIUM 3 ML (DUONEB) VIAL INH SCH (21:54)
[2021-01-11 00:13] VITALS: BP 121/56
[2021-01-11] MEDS: RT-ALBUTEROL/IPRATROPIUM 3 ML (DUONEB) VIAL INH SCH ×4 (02:09→21:48)
[2021-01-11 03:49] VITALS: BP 137/63
[2021-01-11] MEDS: inSUlin ASPART (NovoLOG) 1 UNIT/0.01 ML (CHARGE PER UNIT) SC SCH ×4 (05:49→20:41)
[2021-01-11] MEDS: NS IV 1000 ML 1,000 ML IV SCH ×3 (05:50→20:40)
[2021-01-11 08:00] VITALS: BP 158/88
[2021-01-11] MEDS ORDERED: inSUlin ASPART (NovoLOG) 1 UNIT/0.01 ML (CHARGE PER UNIT) SC SCH (08:00)
[2021-01-11] MEDS: lisINopril 10 MG (PRINIVIL) TABLET PO SCH (08:06)
[2021-01-11] MEDS: ATENOLOL 50 MG (TENORMIN) TAB PO SCH (08:06)
[2021-01-11] MEDS: PANTOPRAZOLE 20 MG TABLET (PROTONIX) PO SCH (08:06)
[2021-01-11] MEDS: LACTOBACILLUS ACIDOPHILUS (PROBIOTIC) CAPSULE PO SCH ×3 (08:06→18:04)
[2021-01-11] MEDS: ASPIRIN 325 MG (5 GR) TABLET PO SCH (08:06)
[2021-01-11] MEDS: NICOTINE 14 MG (NICODERM) PATCH TD SCH (08:06)
[2021-01-11] MEDS ORDERED: OMEPRAZOLE 20 MG (PriLOSEC) CAP NON-FORMULARY PO SCH (09:00)
[2021-01-11] MEDS ORDERED: INSULIN LISPRO 4 UNIT SQ SCH (09:00)
--- NOTE | 2021-01-11 09:18 | Progress Note ---
Subjective Subjective Date Seen by Provider: Jan 11, 2021 Time Seen by Provider: 09:00 PT IRRITABLE THIS MORNING, HE COMPLAINS OF BEING COLD ALL NIGHT LONG. HE DENIES CHEST PAIN, SHORTNESS OF BREATH, COUGH HE DENIES ABDOMINAL, NAUSEA, CONSTIPATION. Review of Systems General: No Chills, No Night Sweats; Fatigue, Malaise HEENT: No Visual Changes Pulmonary: No Dyspnea; Cough Cardiovascular: No: Palpitations Gastrointestinal: No: Nausea, Abdominal Pain Genitourinary: No Dysuria Neurological: Weakness; No: Confusion Objective Exam Vital Signs Vital Signs - First Documented 01/10/21 01/10/21 01/10/21 16:20 18:06 19:28 Temp 36.2 Pulse 101 Resp 18 B/P (MAP) 132/65 (87) Pulse Ox 92 O2 Delivery Room Air O2 Flow Rate 2.00 FiO2 21 Capillary Refill : General Appearance: WD/WN, Thin HEENT: PERRL/EOMI, Pharynx Normal Neck: Full Range of Motion, Normal Inspection, Non Tender, Supple Respiratory: Chest Non Tender, Crackles (IN BASES), Decreased Breath Sounds; No Respiratory Distress; Rhonci Cardiovascular: Regular Rate, Rhythm Gastrointestinal: Normal Bowel Sounds, No Organomegaly, No Pulsatile Mass, Non Tender, Soft Rectal: Deferred Back: Normal Inspection, No Vertebral Tenderness Extremity: Normal Capillary Refill, Normal Range of Motion, Non Tender, No Calf Tenderness Neurologic/Psychiatric: Alert (BUT GROGGY - COMPLAINING OF BEING COLD), Other (IRRITABLE) Skin: Normal Color, Warm/Dry Lymphatic: No Adenopathy Results Lab Laboratory Tests 01/10/21 15:55: White Blood Count 9.3, Red Blood Count 3.17L, Hemoglobin 11.1L, Hematocrit 33L, Mean Corpuscular Volume 104H, Mean Corpuscular Hemoglobin 35H, Mean Corpuscular Hemoglobin Concent 34, Red Cell Distribution Width 13.9, Platelet Count 192, Mean Platelet Volume 10.1, Urine Color YELLOW, Urine Clarity CLEAR, Urine pH 7.0, Urine Specific [place] <=1.005, Urine Protein NEGATIVE, Urine Glucose (UA) NEGATIVE, Urine Ketones NEGATIVE, Urine Nitrite NEGATIVE, Urine Bilirubin NEGATIVE, Urine Urobilinogen 0.2, Urine Leukocyte Esterase NEGATIVE, Urine RBC (Auto) NEGATIVE, Urine RBC NONE, Urine WBC NONE, Urine Squamous Epithelial Cells RARE, Urine Crystals NONE, Urine Bacteria NEGATIVE, Urine Casts NONE, Urine Mucus NEGATIVE, Urine Culture Indicated NO, Sodium Level 135, Potassium Level 4.3, Chloride Level 99, Carbon Dioxide Level 23, Anion Gap 13, Blood Urea Nitrogen 17, Creatinine 1.04, Estimat Glomerular Filtration Rate > 60, BUN/Creatinine Ratio 16, Glucose Level 179H, Calcium Level 8.9, Corrected Calcium 9.5, Total Bilirubin 0.7, Aspartate Amino Transf (AST/SGOT) 29, Alanine Aminotransferase (ALT/SGPT) 43, Alkaline Phosphatase 78, Total Protein 6.0L, Albumin 3.3 01/10/21 20:33: Glucometer 158H 01/11/21 05:48: Glucometer 70 Assessment/Plan Assessment/Plan Admission Dx DEHYDRATION ABDOMINAL PAIN PNEUMONIA TOBACCOISM COPD WEAKNESS GAIT INSTABILITY Assessment and Plan DEHYDRATION ABDOMINAL PAIN PNEUMONIA TOBACCOISM COPD WEAKNESS GAIT INSTABILITY DEHYDRATION - IV FLUID - NS AT 75ML/HR ABDOMINAL PAIN - CT ABDOMEN AND PELVIS - SEE REPORT BELOW - - WILL ORDER SENNA FOR CONSTIPATION PNEUMONIA - SEEN ON CT SCAN - STARTED ON LEVAQUIN, MONITOR CRX SERIALLY - STARTED ON BREATHING TREATMENT PER MAT PROTOCOL, OXYGEN AT 2 L NC TOBACCOISM - PT TO BE ON NICODERM PATCHES WHILE IN THE HOSPITAL. COPD - STARTED ON MAT PROTOCOL, MONITOR SYMPTOMS WEAKNESS WITH GAIT INSTABILITY - STARTED PHYSICAL THERAPY AND REQUEST IRF EVAL WELL. CT ANGIO ABD/PELV W WO INDICATION: Abdominal pain. Pre and postcontrast axial imaging through the abdomen and pelvis was performed utilizing CT angiography protocol. Multiplanar, 3-D and MIP reformations were also performed. Imaging through lung bases does show some interstitial and airspace infiltrate in the left lower lobe suggestive of pneumonia. Lesser interstitial changes in the right lower lobe are noted. Acuity or chronicity of these are indeterminate. Liver is unremarkable. Gallbladder surgically absent. Pancreas is atrophic. Spleen is unremarkable. No adrenal mass is detected. Kidneys are unremarkable. Aorta is heavily calcified and contains a large amount of mural plaque. There ap pears to be a short segment dissection below the level of the renal vessels. Iliacs are heavily calcified as well. Celiac and its branches appear to be patent. The SMA appears patent. The GEORGE is patent. There are single renal arteries bilaterally. Bowel loops are normal caliber. There is moderate stool in the colon. There is diverticulosis of the sigmoid but no evidence of acute di verticulitis. There is no free fluid or fluid collection identified. Bony structures show a large amount of degenerative changes but no acute bony abnormalities detected. Prostate is enlarged. There are fat-containing inguinal hernias bilaterally. IMPRESSION: 1. Bibasilar interstitial and airspace opacities consistent with acuity indeterminate infiltrates. This is greatest on the left. 2. 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 The great vessels arising from the aorta appear to be widely patent. 3. Uncomplicated diverticulosis. 4. Prostatomegaly. 5. Fat-containing bilateral inguinal hernias. Interpreted by: JOJO NESS MD Electronically signed by: JOJO NESS MD 01/10/21 1839 Admission Dx DEHYDRATION ABDOMINAL PAIN PNEUMONIA TOBACCOISM COPD WEAKNESS GAIT INSTABILITY Clinical Quality Measures Admission Status Admission Dx DEHYDRATION ABDOMINAL PAIN PNEUMONIA TOBACCOISM COPD WEAKNESS GAIT INSTABILITY LAUREL SERRANO MD Jan 11, 2021 09:18
[2021-01-11] MEDS: BRIMONIDINE 0.2% (ALPHAGAN) OPHTH SOLN 5 ML BTL OU SCH ×2 (09:43→20:42)
[2021-01-11] MEDS ORDERED: PANT40TA52 PO (11:02)
[2021-01-11] MEDS ORDERED: METF-397 PO (11:02)
[2021-01-11] MEDS ORDERED: BRIMON0.2 OU (11:02)
[2021-01-11] MEDS ORDERED: TMSL.4C PO (11:02)
[2021-01-11 12:00] VITALS: BP 131/57
[2021-01-11] MEDS: HYDROcodone/APAP 5 MG/325 MG (LORTAB) TAB PO PRN ×2 (12:05→23:30)
--- NOTE | 2021-01-11 13:34 | Physical Therapy Evaluation ---
PT Evaluation-General Medical Diagnosis Admission Date Jan 10, 2021 at 19:28 Medical Diagnosis: Uncontrolled BS; SOA Onset Date: Jan 10, 2021 Therapy Diagnosis Therapy Diagnosis: weakness; abn gait Height/Weight Height (Feet): 5 Height (Inches): 11.00 Weight (Pounds): 149 Weight (Ounces): 6.0 Precautions Precautions/Isolations: Fall Prevention, Standard Precautions Referral Physician: Mihir Reason for Referral: Evaluation/Treatment Medical History Pertinent Medical History: CAD, COPD, GERD, HTN, Neuropathy Current History Pt admitted to acute care due to uncontrolled blood sugar, SOA and progressive weakness. Reviewed History: Yes Social History Home: Single Level Current Living Status: Spouse Prior Prior Level of Function SCALE: Activities may be completed with or without assistive devices. 0-Tvkosyabvw-ugzzsnx completes the activity by him/herself with no assistance from a helper. 5-Set-up or Clean-up Assistance-helper sets up or cleans up; patient completes activity. [place] assists only prior to or following the activity. 4-Supervision or Touching Assistance-helper provides verbal cues and/or touching/steadying and/or contact guard assistance as patient completes activity. Assistance may be provided throughout the activity or intermittently. 3-Partial/Moderate Assistance-helper does LESS THAN HALF the effort. [place] lifts, holds or supports trunk or limbs, but provides less than half the effort. 2-Substantial/Maximal Assistance-helper does MORE THAN HALF the effort. [place] lifts or holds trunk or limbs and provides more than half the effort. 0-Cdvjamqaa-castqu does ALL the effort. Patient does none of the effort to complete the activity. Or, the assistance of 2 or more helpers is required for the patient to complete the activity. If activity was not attempted, code reason: 7-Patient Refused. 9-Not Applicable-not attempted and the patient did not perform the activity before the current illness, exacerbation or injury. 10-Not Attempted due to Environmental Limitations-(lack of equipment, weather restraints, etc.). 88-Not Attempted due to Medical Conditions or Safety Concerns. Bed Mobility: 6 Transfers (B,C,W/C): 5 Gait: 6 (Recently, has been assisting with gait, but 3-4 months ago he was able to walk short distances outdoors with a walking stick. ) Stairs: 5 Indoor Mobility (Ambulation): Independent Stairs: Needed Some Help Prior Devices Use: None Until the last few months, pt was indep with all mobility and taking short walks outdoors. Recently, he has begun using a FWW (at his 's encouragement) or she is assisting with ambulation in the home. She reports he walks very slowly. PT Evaluation-Current Subjective Patient requesting to return to bed. Also reports he is very cold. Family report he has a sore bottom and want to make sure there is lotion applied. Objective Patient Orientation: Person, Place, Time, Situation Attachments: Oxygen (in situ during and post visit. ), IV ROM/Strength ROM Lower Extremities WFL Strength Lower Extremities grossly 3/5 throughout Integumentary/Posture Integumentary refer to nursing assessment. Posture rounded shoulders and forward head; thoracic kyphosis noted. Neuromuscular (Tone, Coordination, Reflexes) intact and functional Sensory Vision: Wears Glasses Hearing: Impaired Hand Dominance: Right Sensation Right Lower Extremit: Intact Sensation Left Lower Extremity: Intact Transfers Roll Left to Right (QC): 3 Sit to Lying (QC): 3 Lying to Sitting/Side of Bed(Q: 3 Sit to Stand (QC): 3 Chair/Jlf-nu-Heitt Xfer(QC): 3 Pt requires skilled cues for all transfer tasks for sequencing and initiation of transfer; he needs min to mod assist to complete the task safely. Upon initial standing, pt is retropulsive and requires assist to shift his weight forward with consistent assist to maintain balance. Gait Does the Patient Walk?: Yes Mode of Locomotion: Walk Anticipated Mode of Locomotion: Walk Gait Assistive Device: FWW Comments/Gait Description Pt took steps only to transfer chair to bed; short steps with decreased heel strike/toe off; retropulsive. Balance Sitting Static: Normal Sitting Dynamic: Normal Standing Static: Fair Standing Dynamic: Fair Treatment Functional sit to stand transfer training and bed mobiltiy training. Cues to sequence. Pt in bed post treatment with needs met. Assessment/Needs Pt presents with a recent decline in functional mobility with reduced functional strength, balance and activity tolerance and is requiring assist with all mobility. He is unable to manage at home at this time. He will benefit from skilled therapy services to address these deficits to allow him to return to a higher level of function and decrease caregiver burden. His functional activity tolerance is limited at this time and his tolerance to activity this date is impaired; however, with progressive treatment that should improve. Rehab Potential: Fair PT Perfumer Goals Group Home Goals PT Group Home Goals Time Frame: Jan 18, 2021 Sit to Lying (QC): 6 Lying-Sitting on Side/Bed(QC): 6 Sit to Stand (QC): 5 Chair/Cgt-og-Oecpq Xfer(QC): 5 Walk 50ft with 2 Turns (QC): 5 PT Plan Problem List Problem List: Activity Tolerance, Functional Strength, Safety, Balance, Gait, Transfer, Bed Mobility Treatment/Plan Treatment Plan: Continue Plan of Care Treatment Plan: Bed Mobility, Education, Functional Activity Benji, Functional Strength, Gait, Safety, Therapeutic Exercise, Transfers Treatment Duration: Jan 18, 2021 Frequency: 6 times per week Estimated Hrs Per Day: .5 hour per day Patient and/or Family Agrees t: Yes Safety Risks/Education Patient Education: Transfer Techniques, Safety Issues Teaching Recipient: Patient, Family Teaching Methods: Discussion Response to Teaching: Reinforcement Needed Discharge Recommendations Therapy Discharge Recommendati: Post Acute PT Time/GCodes Time In: 1300 Time Out: 1335 Total Billed Treatment Time: 35 Total Billed Treatment visit EVM 15 FA 20 EDDIE VALLADARES PT Jan 11, 2021 13:34
--- NOTE | 2021-01-11 13:45 | Occupational Therapy Eval ---
OT Evaluation-General/PLF Medical Diagnosis Admission Date Jan 10, 2021 at 19:28 Medical Diagnosis: Uncontrolled BS; SOA Onset Date: Jan 10, 2021 Therapy Diagnosis Therapy Diagnosis: weakness, decreased ADL Status Height/Weight Height (Feet): 5 Height (Inches): 11.00 Weight (Pounds): 149 Weight (Ounces): 6.0 Precautions Precautions/Isolations: Fall Prevention, Standard Precautions Referral Physician: Mihir Referral Reason: Evaluation/Treatment Medical History Pertinent Medical History: Arthritis, CAD, DM, GERD, HTN, Neuropathy Additional Medical History heart attack, coronary stent, glaucoma, anxiety, skin cancer Current History Present to office with c/o increased blood glucose level, nasal congestion, SOB, cough and constipation. Admitted to acute care Social History Home: Single Level Current Living Status: Spouse Entry Into Home: Ramp ADL-Prior Level of Function SCALE: Activities may be completed with or without assistive devices. 6-Kbgbiwpzts-taksspr completes the activity by him/herself with no assistance from a helper. 5-Set-up or Clean-up Assistance-helper sets up or cleans up; patient completes activity. [place] assists only prior to or following the activity. 4-Supervision or Touching Assistance-helper provides verbal cues and/or touching/steadying and/or contact guard assistance as patient completes activity. Assistance may be provided throughout the activity or intermittently. 3-Partial/Moderate Assistance-helper does LESS THAN HALF the effort. [place] lifts, holds or supports trunk or limbs, but provides less than half the effort. 2-Substantial/Maximal Assistance-helper does MORE THAN HALF the effort. [place] lifts or holds trunk or limbs and provides more than half the effort. 7-Lqxxlocrh-qpnwaq does ALL the effort. Patient does none of the effort to complete the activity. Or, the assistance of 2 or more helpers is required for the patient to complete the activity. If activity was not attempted, code reason: 7-Patient Refused. 9-Not Applicable-not attempted and the patient did not perform the activity before the current illness, exacerbation or injury. 10-Not Attempted due to Environmental Limitations-(lack of equipment, weather restraints, etc.). 88-Not Attempted due to Medical Conditions or Safety Concerns. ADL PLOF Comments Pt indicates IND with ADLs at PLOF including bathing, dressing and toileting. Pt's indicates pt was using a FWW recently with encouragement from /family. Self Care: Independent Functional Cognition: Independent DME/Equipment: Bath Bench, Tub/Shower OT Current Status Subjective Pt laying in bed, states he is very cold with multiple layers of blankets on. Agreeable to OT evaluation and tx. Pt's and daughter present. Mental Status/Objective Patient Orientation: Person, Place, Situation Attachments: IV, Oxygen Current Glasses/Contacts: Yes Hand Dominance: Right Upper Extremity ROM WFL, BUE shoulder flexion to approx 140 degrees Upper Extremity Coordination WFL Upper Extremity Sensation Pt denies tingling/numbness BUEs Upper Extremity Strength grossly 3/5 BUEs ADL-Treatment Oral Hygiene (QC): 3 (min A with rinsing dentures. Pt able to use toothbrush and paste to brush bottom teeth, mod verbal cues for sequencing. ) Upper Body Dressing (QC): 3 (Min A changing hospital gown.) Toileting Hygiene (QC): 7 (Pt declined at this time.) Other Treatments Pt laying in bed, agreeable to OT evaluation and tx. OT educate pt and family on purpose and benefit of OT, they verbalize understanding. Pt and provide information about PLOF and home set up, and pt participates in UE screen. Pt agreeable to ADLs at this time, OT sets up for oral care, pt completed with min A. Pt washed his face with set up assistance, after OT assisted pt in removing glasses. Pt's hospital gown changed, assistance with LUE due to IV and assist tying gown. Pt states he is very cold, wishing to return under the blankets. OT assisted pt with positioning to comfort, providing pt with warm blankets. Pt pleasantly declines further tx at this time. Post tx, pt laying in bed, call genevieve smith in reach and all needs met. Education OT Patient Education: Correct positioning, Modified ADL techniques, Progress toward Goal/Update tx plan, Purpose of tx/functional activities, Rehab process Teaching Recipient: Patient Teaching Methods: Discussion Response to Teaching: Verbalize Understanding OT Human Service Coordinator Goals Fdc Goals Time Frame: Jan 20, 2021 Eating (QC): 6 Oral Hygiene (QC): 6 Toileting Hygiene (QC): 6 Shower/Bathe Self (QC): 4 Upper Body Dressing (QC): 5 Lower Body Dressing (QC): 4 On/Off Footwear (QC): 4 Additional Goals: 1-Demonstrate ADL Tasks, 2-Verbalize Understanding, 3- ImproveStrength/Benji 1=Demonstrate adherence to instructed precautions during ADL tasks. 2=Patient will verbalize/demonstrate understanding of assistive devices/modifications for ADL. 3=Patient will improve strength/tolerance for activity to enable patient to perform ADL's. OT Education/Plan Problem List/Assessment Assessment: Decreased Activ Tolerance, Decreased UE Strength, Impaired I ADL's, Impaired Self-Care Skills Pt would benefit from skilled OT services in order to increase BUE strength and activity tolerance, and to increase safety and independence with ADLs and functional tasks in order to maximize LOF for safe return home. Discharge Recommendations Plan/Recommendations: Continue POC Treatment Plan/Plan of Care Patient would benefit from OT for education, treatment and training to promote independence in ADL's, mobility, safety and/or upper extremity function for ADL's. Plan of Care: ADL Retraining, Functional Mobility, UE Funct Exercise/Act Treatment Duration: Jan 20, 2021 Frequency: 5 times per week Estimated Hrs Per Day: .25 hour per day Rehab Potential: Fair Time/GCodes Start Time: 10:58 Stop Time: 11:18 Total Time Billed (hr/min): 20 Billed Treatment Time 1, JADE NICKERSON OT Jan 11, 2021 13:45
[2021-01-11 15:24] VITALS: BP 120/60
[2021-01-11] MEDS: ALPRAZolam 0.5 MG (XANAX) TAB PO PRN ×2 (16:08→23:43)
[2021-01-11 20:00] VITALS: BP 135/76
[2021-01-11] MEDS: SIMvastatin 40 MG (ZOCOR) TAB PO SCH (20:42)
[2021-01-11] MEDS: NICOTINE PATCH REMOVAL TP SCH (20:43)
[2021-01-12 00:23] VITALS: BP 156/65
[2021-01-12] MEDS: RT-ALBUTEROL/IPRATROPIUM 3 ML (DUONEB) VIAL INH SCH ×4 (02:22→23:38)
[2021-01-12 04:06] VITALS: BP 110/59
[2021-01-12] MEDS: inSUlin ASPART (NovoLOG) 1 UNIT/0.01 ML (CHARGE PER UNIT) SC SCH ×4 (05:35→20:41)
[2021-01-12 06:19] LABS: HEMATOCRIT 28 % (40-54); HEMOGLOBIN 9.7 g/dL (13.3-17.7); MEAN CORPUSCULAR HEMOGLOBIN 36 pg (25-34); MEAN CORPUSCULAR HGB CONC 35 g/dL (32-36); MEAN CORPUSCULAR VOLUME 103 fL (80-99); MEAN PLATELET VOLUME 9.8 fL (9.0-12.2); PLATELET COUNT 165 10^3/uL (130-400); WHITE BLOOD COUNT 8.1 10^3/uL (4.3-11.0)
[2021-01-12 06:32] LABS: ALBUMIN 2.9 GM/DL (3.2-4.5); CHLORIDE 101 MMOL/L (98-107); POTASSIUM 4.1 MMOL/L (3.6-5.0); SODIUM 135 MMOL/L (135-145)
[2021-01-12 06:33] LABS: CALCIUM 8.7 MG/DL (8.5-10.1)
[2021-01-12 06:34] LABS: GLUCOSE 155 MG/DL (70-105)
[2021-01-12 06:35] LABS: TOTAL PROTEIN 5.3 GM/DL (6.4-8.2)
[2021-01-12 06:36] LABS: BILIRUBIN,TOTAL 0.6 MG/DL (0.1-1.0); CARBON DIOXIDE 23 MMOL/L (21-32)
[2021-01-12 06:38] LABS: ALKALINE PHOSPHATASE 69 U/L (40-136); CREATININE SERUM 1.13 MG/DL (0.60-1.30); GFR ESTIMATED > 60
[2021-01-12 06:39] LABS: BUN/CREATININE RATIO 12
[2021-01-12 06:41] LABS: ALANINE AMINOTRANSFERASE 39 U/L (0-55)
[2021-01-12 08:00] VITALS: BP 181/81
[2021-01-12] MEDS: ATENOLOL 50 MG (TENORMIN) TAB PO SCH (08:15)
[2021-01-12] MEDS: LACTOBACILLUS ACIDOPHILUS (PROBIOTIC) CAPSULE PO SCH ×3 (08:15→17:54)
[2021-01-12] MEDS: ASPIRIN 325 MG (5 GR) TABLET PO SCH (08:15)
[2021-01-12] MEDS: lisINopril 10 MG (PRINIVIL) TABLET PO SCH (08:16)
[2021-01-12] MEDS: NICOTINE 14 MG (NICODERM) PATCH TD SCH (08:16)
[2021-01-12] MEDS: PANTOPRAZOLE 20 MG TABLET (PROTONIX) PO SCH (08:16)
[2021-01-12] MEDS: BRIMONIDINE 0.2% (ALPHAGAN) OPHTH SOLN 5 ML BTL OU SCH ×2 (08:18→20:41)
--- NOTE | 2021-01-12 08:51 | Progress Note ---
Subjective Subjective Date Seen by Provider: Jan 12, 2021 Time Seen by Provider: 09:00 PT IS STILL IRRITABLE, HE DENIES CHEST PAIN, ABDOMINAL PAIN, NAUSEA, HE HAS A COUGH. HE DENIES FEELING SHORT OF BREATH, BUT HAS NOT MOVED AROUND MUCH TODAY. HE REPORTS TO ME THAT HE IS MUCH BETTER, FEELING WARM TODAY. Review of Systems General: No Chills; Fatigue, Malaise Pulmonary: Dyspnea; No Cough Cardiovascular: No: Chest Pain, Palpitations Gastrointestinal: No: Nausea, Abdominal Pain, Constipation Neurological: Weakness, Other (IRRITABLE AND TELLING STAFF THAT HE WANTS TO LEAVE); No: Confusion Objective Exam Vital Signs Vital Signs - First Documented 01/10/21 01/10/21 01/10/21 16:20 18:06 19:28 Temp 36.2 Pulse 101 Resp 18 B/P (MAP) 132/65 (87) Pulse Ox 92 O2 Delivery Room Air O2 Flow Rate 2.00 FiO2 21 Capillary Refill : General Appearance: No Apparent Distress, WD/WN HEENT: PERRL/EOMI, Pharynx Normal Neck: Full Range of Motion, Normal Inspection, Non Tender, Supple Respiratory: Chest Non Tender, Crackles (IN BASES), Decreased Breath Sounds; No Respiratory Distress; Rhonci Cardiovascular: Regular Rate, Rhythm Gastrointestinal: Normal Bowel Sounds, No Organomegaly, No Pulsatile Mass, Non Tender, Soft Rectal: Deferred Back: Normal Inspection, No Vertebral Tenderness Extremity: Normal Capillary Refill, Normal Range of Motion, Non Tender, No Calf Tenderness Neurologic/Psychiatric: Alert, Oriented x3, No Motor/Sensory Deficits, Normal Mood/Affect, lead technician II-XII Norm as Tested Skin: Normal Color, Warm/Dry Lymphatic: No Adenopathy Results Lab Laboratory Tests 01/11/21 11:07: Glucometer 145H 01/11/21 15:32: Glucometer 201H 01/11/21 20:37: Glucometer 160H 01/12/21 05:22: Glucometer 150H 01/12/21 05:23: White Blood Count 8.1, Red Blood Count 2.72L, Hemoglobin 9.7L, Hematocrit 28L, Mean Corpuscular Volume 103H, Mean Corpuscular Hemoglobin 36H, Mean Corpuscular Hemoglobin Concent 35, Red Cell Distribution Width 13.8, Platelet Count 165, Mean Platelet Volume 9.8, Sodium Level 135, Potassium Level 4.1, Chloride Level 101, Carbon Dioxide Level 23, Anion Gap 11, Blood Urea Nitrogen 14, Creatinine 1.13, Estimat Glomerular Filtration Rate > 60, BUN/Creatinine Ratio 12, Glucose Level 155H, Calcium Level 8.7, Corrected Calcium 9.6, Total Bilirubin 0.6, Aspartate Amino Transf (AST/SGOT) 25, Alanine Aminotransferase (ALT/SGPT) 39, Alkaline Phosphatase 69, Total Protein 5.3L, Albumin 2.9L Assessment/Plan Assessment/Plan Admission Dx DEHYDRATION ABDOMINAL PAIN PNEUMONIA TOBACCOISM COPD WEAKNESS GAIT INSTABILITY Assessment and Plan DEHYDRATION ABDOMINAL PAIN PNEUMONIA TOBACCOISM COPD WEAKNESS GAIT INSTABILITY DEHYDRATION - IV FLUID - NS AT 75ML/HR ABDOMINAL PAIN - CT ABDOMEN AND PELVIS - SEE REPORT BELOW - CT ANGIO ABD/PELV W WO 1. Bibasilar interstitial and airspace opacities consistent with acuity indeterminate infiltrates. This is greatest on the left. 2. 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 The great vessels arising from the aorta appear to be widely patent. 3. Uncomplicated diverticulosis. 4. Prostatomegaly. 5. Fat-containing bilateral inguinal hernias. - SENNA FOR CONSTIPATION PNEUMONIA - SEEN ON CT SCAN - STARTED ON LEVAQUIN, MONITOR CRX SERIALLY - STARTED ON BREATHING TREATMENT PER MAT PROTOCOL, OXYGEN AT 2 L NC TOBACCOISM - PT TO BE ON NICODERM PATCHES WHILE IN THE HOSPITAL. COPD - STARTED ON MAT PROTOCOL, MONITOR SYMPTOMS WEAKNESS WITH GAIT INSTABILITY - STARTED PHYSICAL THERAPY AND REQUEST IRF EVAL WELL. Admission Dx DEHYDRATION ABDOMINAL PAIN PNEUMONIA TOBACCOISM COPD WEAKNESS GAIT INSTABILITY Clinical Quality Measures Admission Status Admission Dx DEHYDRATION ABDOMINAL PAIN PNEUMONIA TOBACCOISM COPD WEAKNESS GAIT INSTABILITY LAUREL SERRANO MD Jan 12, 2021 08:51
--- NOTE | 2021-01-12 10:24 | Occupational Ther Daily Note ---
OT Current Status-Daily Note Subjective Pt laying in bed, states fatigued. Pt has difficulty keeping eyes open during session. ADL-Treatment Therapy Code Descriptions/Definitions Functional [place] Measure: 0=Not Assessed/NA 4=Minimal Assistance 1=Total Assistance 5=Supervision or Setup 2=Maximal Assistance 6=Modified [place] 3=Moderate Assistance 7=Complete IndependenceSCALE: Activities may be completed with or without assistive devices. 2-Wxcvkitaok-ymgbzgk completes the activity by him/herself with no assistance from a helper. 5-Set-up or Clean-up Assistance-helper sets up or cleans up; patient completes activity. [place] assists only prior to or following the activity. 4-Supervision or Touching Assistance-helper provides verbal cues and/or touching/steadying and/or contact guard assistance as patient completes activity. Assistance may be provided throughout the activity or intermittently. 3-Partial/Moderate Assistance-helper does LESS THAN HALF the effort. [place] lif ts, holds or supports trunk or limbs, but provides less than half the effort. 2-Substantial/Maximal Assistance-helper does MORE THAN HALF the effort. [place] lifts or holds trunk or limbs and provides more than half the effort. 2-Xpkacqqdh-tidojz does ALL the effort. Patient does none of the effort to complete the activity. Or, the assistance of 2 or more helpers is required for the patient to complete the activity. If activity was not attempted, code reason: 7-Patient Refused. 9-Not Applicable-not attempted and the patient did not perform the activity before the current illness, exacerbation or injury. 10-Not Attempted due to Environmental Limitations-(lack of equipment, weather restraints, etc.). 88-Not Attempted due to Medical Conditions or Safety Concerns. Shower/Bathe Self (QC): 2 (Pt required max A overall with sponge bath. ) Upper Body Dressing (QC): 2 (Max A with changing hospital gown.) On/Off Footwear: 2 (based on clincial judgemetn, pt would require max A with task due to poor sitting balance.) Other Treatment Pt laying in bed, agreeable to sponge bath. Pt had difficulty keeping his eyes open during session, states he is tired. Pt transferred supine to sit EOB, assist BLEs and trunk. Pt had difficulty following one step directions during transfer, requiring hand over hand assistance with UE placement. Once EOB, pt leaning towards R side, requiring min-CGA to maintain sitting balance. Sponge bath complete EOB, OT handed pt washcloth and he washed his face. OT provided one step instruction with tactile cue to wash next body part. Pt followed instruction ~50% of the time, instead washing another body part or washing his face again. Pt required step by step verbal and tactile cues with sponge bath. Pt required max A overall for thoroughness. Max A sit to stand at EOB, retropulsive in stand requiring assistance to maintain upright position. OT assisted with washing buttocks. Pt then took a few side steps up towards HOB, step by step cues and assistance with walker. Pt sat back on bed, hand over hand assistance for hand placement, then supine assist with BLEs. Assist to scoot up towards HOB. Post tx, pt laying in bed, call light in reach and all needs met. Education OT Patient Education: Correct positioning, Energy conservation, Modified ADL techniques, Progress toward Goal/Update tx plan, Purpose of tx/functional activities, Rehab process Teaching Recipient: Patient Teaching Methods: Discussion Response to Teaching: Verbalize Understanding, Reinforcement Needed OT Group Home Goals Group Home Goals Time Frame: Jan 20, 2021 Eating (QC): 6 Oral Hygiene (QC): 6 Toileting Hygiene (QC): 6 Shower/Bathe Self (QC): 4 Upper Body Dressing (QC): 5 Lower Body Dressing (QC): 4 On/Off Footwear (QC): 4 Additional Goals: 1-Demonstrate ADL Tasks, 2-Verbalize Understanding, 3- ImproveStrength/Benji 1=Demonstrate adherence to instructed precautions during ADL tasks. 2=Patient will verbalize/demonstrate understanding of assistive devices/modifications for ADL. 3=Patient will improve strength/tolerance for activity to enable patient to perform ADL's. OT Education/Plan Problem List/Assessment Assessment: Decreased Activ Tolerance, Decreased Safety Aware, Decreased UE Strength, Dependent Transfers, Impaired Bed Mobility, Impaired Funct Balance, Impaired I ADL's, Impaired Self-Care Skills Pt would benefit from skilled OT services in order to increase BUE strength and activity tolerance, and to increase safety and independence with ADLs and functional tasks in order to maximize LOF for safe return home. Discharge Recommendations Plan/Recommendations: Continue POC Treatment Plan/Plan of Care Patient would benefit from OT for education, treatment and training to promote independence in ADL's, mobility, safety and/or upper extremity function for ADL's. Plan of Care: ADL Retraining, Functional Mobility, UE Funct Exercise/Act Treatment Duration: Jan 20, 2021 Frequency: 5 times per week Estimated Hrs Per Day: .25 hour per day Rehab Potential: Fair Time/GCodes Start Time: 09:10 Stop Time: 09:38 Total Time Billed (hr/min): 28 Billed Treatment Time 1, ADL 2 JADE PARSONS OT Jan 12, 2021 10:24
--- NOTE | 2021-01-12 10:36 | Physical Therapy Daily Note ---
PT Daily Note-Current Subjective Patient reports fatigue. Agrees to PT. Mental Status Patient Orientation: Person Attachments: Oxygen, IV Transfers SCALE: Activities may be completed with or without assistive devices. 0-Vqulaorlcu-dcypgqt completes the activity by him/herself with no assistance from a helper. 5-Set-up or Clean-up Assistance-helper sets up or cleans up; patient completes activity. [place] assists only prior to or following the activity. 4-Supervision or Touching Assistance-helper provides verbal cues and/or touching/steadying and/or contact guard assistance as patient completes activity. Assistance may be provided throughout the activity or intermittently. 3-Partial/Moderate Assistance-helper does LESS THAN HALF the effort. [place] lif ts, holds or supports trunk or limbs, but provides less than half the effort. 2-Substantial/Maximal Assistance-helper does MORE THAN HALF the effort. [place] lifts or holds trunk or limbs and provides more than half the effort. 9-Akuawgyxl-fbtduw does ALL the effort. Patient does none of the effort to complete the activity. Or, the assistance of 2 or more helpers is required for the patient to complete the activity. If activity was not attempted, code reason: 7-Patient Refused. 9-Not Applicable-not attempted and the patient did not perform the activity before the current illness, exacerbation or injury. 10-Not Attempted due to Environmental Limitations-(lack of equipment, weather restraints, etc.). 88-Not Attempted due to Medical Conditions or Safety Concerns. Sit to Lying (QC): 2 Lying to Sitting/Side of Bed(Q: 2 Sit to Stand (QC): 3 Chair/Hxs-wz-Ghtjk Xfer(QC): 7 Gait Training Does the Patient Walk?: Yes Distance: 150' Walk 10 feet (QC): 3 Walk 50 ft with 2 Turns(QC): 3 Walk 150 ft (QC): 3 Gait Assistive Device: FWW functional gait sequence with FWW Assessment Patient tolerated minimal activity and ceases treatment due to fatigue. Patient incontinent urine session. PT Physician Internist Goals Skilled Nursing Goals PT Physician Internist Goals Time Frame: Jan 18, 2021 Sit to Lying (QC): 6 Lying-Sitting on Side/Bed(QC): 6 Sit to Stand (QC): 5 Chair/Grx-nn-Vggrv Xfer(QC): 5 Walk 50ft with 2 Turns (QC): 5 PT Plan Treatment/Plan Treatment Plan: Continue Plan of Care Treatment Plan: Bed Mobility, Education, Functional Activity Benji, Functional Strength, Gait, Safety, Therapeutic Exercise, Transfers Treatment Duration: Jan 18, 2021 Frequency: 6 times per week Estimated Hrs Per Day: .5 hour per day Patient and/or Family Agrees t: Yes Time/GCodes Time In: 1005 Time Out: 1015 Total Billed Treatment Time: 10 Total Billed Treatment 1 visit GT 10 min CHLOE ORLANDO PT Jan 12, 2021 10:36
--- NOTE | 2021-01-12 11:13 | Physician Query Clarification ---
Physician Query-General Query to Physician: The medical record reflects the following clinical evidence: Clinical Indicators: P/F ratio of 214 90% on 2L(60%/0.28), SOA with Exertion, weak cough effort Risk Factor(s): PNA, DM, Generalized weakness Treatment: IV Levofloxacin, Albuterol, Supplemental 02, Respiratory monitoring 1. Acute respiratory failure,in the setting of Pneumonia and weakness present on admission 2. Other explanation of clinical findings 3. Unable to determine (no explanation for clinical findings) Please clarify and document your clinical opinion in the progress notes and discharge summary including the definitive and/or presumptive diagnosis, (suspected or probable), related to the above clinical findings. Please include clinical findings supporting your diagnosis. Perlita Sloan [phone] [email or web address] PHYSICIAN RESPONSE: Based on the clinical findings in the record, please respond to the query above on this document as an addendum. Physician Response: Physician Response 1 If you have questions please contact: Tour Escort: Ext: Thank you for your time and cooperation. Clinical Equalizer Operator/Tour Escort This is a permanent part of the medical record PERLITA SLOAN Jan 12, 2021 11:13 LAUREL SERRANO MD Jan 13, 2021 10:44
[2021-01-12 12:00] VITALS: BP 163/67
--- NOTE | 2021-01-12 12:18 | Diagnostic Imaging Report ---
INDICATION: Pneumonia. TECHNIQUE: Two view chest 11:30 AM CORRELATION STUDY: 01/10/2021 FINDINGS: Heart size is enlarged. Vasculature slightly more prominent. Scattered bilateral pulmonary opacities have adversely changed. This is most pronounced along the basilar aspect of the right upper lobe as well as bilateral lung bases. Trace pleural effusions. IMPRESSION: 1. Development of bilateral pulmonary opacities most pronounced basilar aspect right upper lobe. Favors probable pneumonia. There is also mild vascular congestion and a component of underlying edema not excluded. Dictated by: Dictated on workstation # [id number]
[2021-01-12] MEDS: HYDROcodone/APAP 5 MG/325 MG (LORTAB) TAB PO PRN ×2 (13:30→18:34)
[2021-01-12 16:29] VITALS: BP 125/72
[2021-01-12 20:15] VITALS: BP 113/65
[2021-01-12] MEDS: SIMvastatin 40 MG (ZOCOR) TAB PO SCH (20:41)
[2021-01-12] MEDS: NICOTINE PATCH REMOVAL TP SCH (20:41)
[2021-01-13] VITALS: BP 148/67
[2021-01-13] MEDS: RT-ALBUTEROL/IPRATROPIUM 3 ML (DUONEB) VIAL INH SCH ×4 (03:16→21:04)
[2021-01-13 03:46] VITALS: BP 161/77
[2021-01-13] MEDS: inSUlin ASPART (NovoLOG) 1 UNIT/0.01 ML (CHARGE PER UNIT) SC SCH ×4 (05:19→20:53)
[2021-01-13 05:52] LABS: HEMATOCRIT 29 % (40-54); HEMOGLOBIN 10.1 g/dL (13.3-17.7); MEAN CORPUSCULAR HEMOGLOBIN 35 pg (25-34); MEAN CORPUSCULAR HGB CONC 35 g/dL (32-36); MEAN CORPUSCULAR VOLUME 102 fL (80-99); MEAN PLATELET VOLUME 9.6 fL (9.0-12.2); PLATELET COUNT 151 10^3/uL (130-400); WHITE BLOOD COUNT 6.8 10^3/uL (4.3-11.0)
[2021-01-13 06:19] LABS: ALBUMIN 2.9 GM/DL (3.2-4.5); CHLORIDE 101 MMOL/L (98-107); POTASSIUM 4.2 MMOL/L (3.6-5.0); SODIUM 135 MMOL/L (135-145)
[2021-01-13 06:20] LABS: CALCIUM 8.5 MG/DL (8.5-10.1)
[2021-01-13 06:21] LABS: GLUCOSE 139 MG/DL (70-105); TOTAL PROTEIN 5.5 GM/DL (6.4-8.2)
[2021-01-13 06:22] LABS: CARBON DIOXIDE 23 MMOL/L (21-32)
[2021-01-13 06:23] LABS: BILIRUBIN,TOTAL 0.7 MG/DL (0.1-1.0)
[2021-01-13 06:25] LABS: ALKALINE PHOSPHATASE 90 U/L (40-136); CREATININE SERUM 0.85 MG/DL (0.60-1.30); GFR ESTIMATED > 60
[2021-01-13 06:26] LABS: BUN/CREATININE RATIO 12
[2021-01-13 06:28] LABS: ALANINE AMINOTRANSFERASE 42 U/L (0-55)
[2021-01-13 08:00] VITALS: BP 186/81
[2021-01-13] MEDS: ASPIRIN 325 MG (5 GR) TABLET PO SCH (09:07)
[2021-01-13] MEDS: lisINopril 10 MG (PRINIVIL) TABLET PO SCH (09:07)
[2021-01-13] MEDS: ATENOLOL 50 MG (TENORMIN) TAB PO SCH (09:07)
[2021-01-13] MEDS: LACTOBACILLUS ACIDOPHILUS (PROBIOTIC) CAPSULE PO SCH ×3 (09:07→17:37)
[2021-01-13] MEDS: NICOTINE 14 MG (NICODERM) PATCH TD SCH (09:08)
[2021-01-13] MEDS: PANTOPRAZOLE 20 MG TABLET (PROTONIX) PO SCH (09:08)
[2021-01-13] MEDS: BRIMONIDINE 0.2% (ALPHAGAN) OPHTH SOLN 5 ML BTL OU SCH ×2 (09:08→20:54)
--- NOTE | 2021-01-13 10:26 | Physical Therapy Daily Note ---
PT Daily Note-Current Subjective Patient agrees to PT. Mental Status Patient Orientation: Person, Time, Situation Attachments: Oxygen Transfers SCALE: Activities may be completed with or without assistive devices. 9-Eshkkncuki-vojqgsh completes the activity by him/herself with no assistance from a helper. 5-Set-up or Clean-up Assistance-helper sets up or cleans up; patient completes activity. [place] assists only prior to or following the activity. 4-Supervision or Touching Assistance-helper provides verbal cues and/or touching/steadying and/or contact guard assistance as patient completes activity. Assistance may be provided throughout the activity or intermittently. 3-Partial/Moderate Assistance-helper does LESS THAN HALF the effort. [place] lifts, holds or supports trunk or limbs, but provides less than half the effort. 2-Substantial/Maximal Assistance-helper does MORE THAN HALF the effort. [place] lifts or holds trunk or limbs and provides more than half the effort. 8-Dischqzjt-fkrzhi does ALL the effort. Patient does none of the effort to complete the activity. Or, the assistance of 2 or more helpers is required for the patient to complete the activity. If activity was not attempted, code reason: 7-Patient Refused. 9-Not Applicable-not attempted and the patient did not perform the activity before the current illness, exacerbation or injury. 10-Not Attempted due to Environmental Limitations-(lack of equipment, weather restraints, etc.). 88-Not Attempted due to Medical Conditions or Safety Concerns. Lying to Sitting/Side of Bed(Q: 3 Sit to Stand (QC): 3 Chair/Giq-cv-Sjkkj Xfer(QC): 3 (impulsive to sit/unaware of safety concerns) PT assists patient with donning brief due to urinary incontinence. Gait Training Does the Patient Walk?: Yes Distance: 250' Walk 10 feet (QC): 3 Walk 50 ft with 2 Turns(QC): 3 Walk 150 ft (QC): 3 Gait Assistive Device: FWW slow and steady Assessment Cushion placed in recliner for patient comfort and multiple warm blankets placed on patient per his request. Patient tolerated treatment well. Nursing notified of patient up in recliner. PT Mcc Goals Mcc Goals PT Bead Inspector Goals Time Frame: Jan 18, 2021 Sit to Lying (QC): 6 Lying-Sitting on Side/Bed(QC): 6 Sit to Stand (QC): 5 Chair/Dyv-cs-Qxchh Xfer(QC): 5 Walk 50ft with 2 Turns (QC): 5 PT Plan Treatment/Plan Treatment Plan: Continue Plan of Care Treatment Plan: Bed Mobility, Education, Functional Activity Benji, Functional Strength, Gait, Safety, Therapeutic Exercise, Transfers Treatment Duration: Jan 18, 2021 Frequency: 6 times per week Estimated Hrs Per Day: .5 hour per day Patient and/or Family Agrees t: Yes Time/GCodes Time In: 905 Time Out: 928 Total Billed Treatment Time: 23 Total Billed Treatment 1 visit FA x 2 23 min CHLOE ORLANDO PT Jan 13, 2021 10:26
--- NOTE | 2021-01-13 10:44 | Progress Note ---
Subjective Subjective Date Seen by Provider: Jan 13, 2021 Time Seen by Provider: 10:00 PT REPORTS THAT HE IS GOING TO GO HOME TODAY. HE IS SITTING IN THE CHAIR WITH HIS EYES CLOSED AND THEN OPENS THEM AND TELLS ME THAT THE DOCTOR IS LETTING HIM GO HOME. HE THEN REALIZED I WAS HIS DOCTOR AND TOLD ME HE WAS GOING HOME. HE ADMITS TO SHORTNESS OF BREATH, BUT DOES NOT FEEL LIKE IT IS WORSE THAN USUAL. HE SPECIFICALLY DENIES ABDOMINAL PAIN. I ASKED HIM SEVERAL TIMES IF HIS STOMACH HURTS AND HE STATES "NO, IT DOES NOT HURT" Review of Systems General: No Chills, No Night Sweats; Fatigue, Malaise HEENT: No Head Aches, No Dysphasia Pulmonary: Dyspnea; No Cough Cardiovascular: No: Chest Pain, Palpitations Gastrointestinal: No: Nausea, Vomiting, Abdominal Pain, Diarrhea Neurological: Weakness; No: Confusion Objective Exam Vital Signs Vital Signs - First Documented 01/10/21 01/10/21 01/10/21 16:20 18:06 19:28 Temp 36.2 Pulse 101 Resp 18 B/P (MAP) 132/65 (87) Pulse Ox 92 O2 Delivery Room Air O2 Flow Rate 2.00 FiO2 21 Capillary Refill : General Appearance: WD/WN, Thin HEENT: PERRL/EOMI, Pharynx Normal Neck: Full Range of Motion, Normal Inspection, Non Tender, Supple Respiratory: Chest Non Tender, Crackles (IN BASES), Decreased Breath Sounds; No Respiratory Distress; Rhonci Cardiovascular: Regular Rate, Rhythm Gastrointestinal: Normal Bowel Sounds, No Organomegaly, No Pulsatile Mass, Non Tender, Soft Rectal: Deferred Back: Normal Inspection, No Vertebral Tenderness Extremity: Normal Capillary Refill, Normal Range of Motion, Non Tender, No Calf Tenderness Neurologic/Psychiatric: Alert, Oriented x3, Other (IRRITABLE, DOES NOT WANT TO BE IN HOSPITAL) Skin: Normal Color, Warm/Dry Lymphatic: No Adenopathy Results Lab Laboratory Tests 01/12/21 15:10: Glucometer 233H 01/12/21 20:15: Glucometer 276H 01/13/21 04:52: Glucometer 149H 01/13/21 05:42: White Blood Count 6.8, Red Blood Count 2.88L, Hemoglobin 10.1L, Hematocrit 29L, Mean Corpuscular Volume 102H, Mean Corpuscular Hemoglobin 35H, Mean Corpuscular Hemoglobin Concent 35, Red Cell Distribution Width 13.7, Platelet Count 151, Mean Platelet Volume 9.6, Sodium Level 135, Potassium Level 4.2, Chloride Level 101, Carbon Dioxide Level 23, Anion Gap 11, Blood Urea Nitrogen 10, Creatinine 0.85, Estimat Glomerular Filtration Rate > 60, BUN/Creatinine Ratio 12, Glucose Level 139H, Calcium Level 8.5, Corrected Calcium 9.4, Total Bilirubin 0.7, Aspartate Amino Transf (AST/SGOT) 29, Alanine Aminotransferase (ALT/SGPT) 42, Alkaline Phosphatase 90, Total Protein 5.5L, Albumin 2.9L Assessment/Plan Assessment/Plan Admission Dx DEHYDRATION ABDOMINAL PAIN PNEUMONIA TOBACCOISM COPD WEAKNESS GAIT INSTABILITY Assessment and Plan DEHYDRATION ABDOMINAL PAIN PNEUMONIA TOBACCOISM COPD WEAKNESS GAIT INSTABILITY DEHYDRATION - RESOLVED ABDOMINAL PAIN - CT ABDOMEN AND PELVIS - SEE REPORT BELOW - CT ANGIO ABD/PELV W WO 1. Bibasilar interstitial and airspace opacities consistent with acuity indeterminate infiltrates. This is greatest on the left. 2. 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 The great vessels arising from the aorta appear to be widely patent. 3. Uncomplicated diverticulosis. 4. Prostatomegaly. 5. Fat-containing bilateral inguinal hernias. - SENNA FOR CONSTIPATION PNEUMONIA - SEEN ON CT SCAN - STARTED ON LEVAQUIN, MONITOR CRX SERIALLY - STARTED ON BREATHING TREATMENT PER MAT PROTOCOL - IV FLUIDS STOPPED DUE TO SMALL PLEURAL EFFUSIONS - DISCUSSED WITH ON THE PHONE TODAY- SHOULD NOT ANTICIPATE A LARGE IMPROVEMENT DUE TO HIS COPD AND POOR EFFORT. - CONTINUE WITH OXYGEN VIA NC. - HE HAS REQUIRED OXYGEN OUTPT BUT REFUSES TO WEAR THE OXYGEN. TOBACCOISM - PT TO BE ON NICODERM PATCHES WHILE IN THE HOSPITAL. COPD - STARTED ON MAT PROTOCOL, MONITOR SYMPTOMS WEAKNESS WITH GAIT INSTABILITY - STARTED PHYSICAL THERAPY - DISCUSSED WITH PT'S AND WITH ETHANOL OPERATOR, NED IS WANTING TO GO HOME, BUT HIS CANNOT HANDLE HIM AT HOME ON HER OWN. WHEN SHE WAS IN THE OFFICE, SHE WAS INSISTENT THAT SHE WANTED HOME HEALTH. HOWEVER WHEN SHE TALKED TO ETHANOL OPERATOR SHE INDICATED THAT SHE "DOES ALL THAT STUFF ALREADY." AND WAS NOT SURE SHE NEEDED HOME HEALTH. I MENTIONED CORRECTION TO HER AND SHE ACTED LIKE THAT MAY BE AN OPTION AND SHE WOULD TALK TO HER KIDS THIS WEEKEND. Admission Dx DEHYDRATION ABDOMINAL PAIN PNEUMONIA TOBACCOISM COPD WEAKNESS GAIT INSTABILITY Clinical Quality Measures Admission Status Admission Dx DEHYDRATION ABDOMINAL PAIN PNEUMONIA TOBACCOISM COPD WEAKNESS GAIT INSTABILITY LAUREL SERRANO MD Jan 13, 2021 10:44
--- NOTE | 2021-01-13 11:45 | Occupational Ther Daily Note ---
OT Current Status-Daily Note Subjective Pt seated in recliner, agreeable to OT tx. States he desires to discharge today. Mental Status/Objective Patient Orientation: Person, Place, Situation ADL-Treatment Therapy Code Descriptions/Definitions Functional [place] Measure: 0=Not Assessed/NA 4=Minimal Assistance 1=Total Assistance 5=Supervision or Setup 2=Maximal Assistance 6=Modified [place] 3=Moderate Assistance 7=Complete IndependenceSCALE: Activities may be completed with or without assistive devices. 7-Pcgrshaewq-agaxpwm completes the activity by him/herself with no assistance from a helper. 5-Set-up or Clean-up Assistance-helper sets up or cleans up; patient completes activity. [place] assists only prior to or following the activity. 4-Supervision or Touching Assistance-helper provides verbal cues and/or touching/steadying and/or contact guard assistance as patient completes activity. Assistance may be provided throughout the activity or intermittently. 3-Partial/Moderate Assistance-helper does LESS THAN HALF the effort. [place] lifts, holds or supports trunk or limbs, but provides less than half the effort. 2-Substantial/Maximal Assistance-helper does MORE THAN HALF the effort. [place] l ifts or holds trunk or limbs and provides more than half the effort. 9-Nmxnlawdt-pvbrot does ALL the effort. Patient does none of the effort to complete the activity. Or, the assistance of 2 or more helpers is required for the patient to complete the activity. If activity was not attempted, code reason: 7-Patient Refused. 9-Not Applicable-not attempted and the patient did not perform the activity before the current illness, exacerbation or injury. 10-Not Attempted due to Environmental Limitations-(lack of equipment, weather restraints, etc.). 88-Not Attempted due to Medical Conditions or Safety Concerns. Oral Hygiene (QC): 3 (Min A with brushing top dentures. Pt able to use toothbrush to brush bottom teeth, min cues for sequencing.) Other Treatment Pt seated in recliner, states he is tired and cold. He wishes to discharge today. Pt agreeable to completing oral care at this time. OT placed supplies on tray table, he was able to open toothpaste and put on toothbrush. OT cued pt to remove top dentures, OT cleaned top dentures for pt. He was able to use toothbrush to brush bottom teeth. He required min cues for sequencing in order to rinse mouth and spit. Post tx, pt seated in recliner, call light in reach and all needs met. Education OT Patient Education: Correct positioning, Modified ADL techniques, Progress toward Goal/Update tx plan, Purpose of tx/functional activities, Reviewed precautions Teaching Recipient: Patient Teaching Methods: Discussion Response to Teaching: Verbalize Understanding OT Alf Goals Storage Center Manager Goals Time Frame: Jan 20, 2021 Eating (QC): 6 Oral Hygiene (QC): 6 Toileting Hygiene (QC): 6 Shower/Bathe Self (QC): 4 Upper Body Dressing (QC): 5 Lower Body Dressing (QC): 4 On/Off Footwear (QC): 4 Additional Goals: 1-Demonstrate ADL Tasks, 2-Verbalize Understanding, 3- ImproveStrength/Benji 1=Demonstrate adherence to instructed precautions during ADL tasks. 2=Patient will verbalize/demonstrate understanding of assistive devices/modifications for ADL. 3=Patient will improve strength/tolerance for activity to enable patient to perform ADL's. OT Education/Plan Problem List/Assessment Assessment: Decreased Activ Tolerance, Decreased UE Strength, Impaired I ADL's, Impaired Self-Care Skills Pt would benefit from skilled OT services in order to increase BUE strength and activity tolerance, and to increase safety and independence with ADLs and fun ctional tasks in order to maximize LOF for safe return home. Discharge Recommendations Plan/Recommendations: Continue POC Treatment Plan/Plan of Care Patient would benefit from OT for education, treatment and training to promote independence in ADL's, mobility, safety and/or upper extremity function for ADL's. Plan of Care: ADL Retraining, Functional Mobility, UE Funct Exercise/Act Treatment Duration: Jan 20, 2021 Frequency: 5 times per week Estimated Hrs Per Day: .25 hour per day Rehab Potential: Fair Time/GCodes Start Time: 10:28 Stop Time: 10:40 Total Time Billed (hr/min): 12 Billed Treatment Time 1, ADL JADE PARSONS OT Jan 13, 2021 11:45
[2021-01-13 12:00] VITALS: BP 153/98
[2021-01-13] MEDS: HYDROcodone/APAP 5 MG/325 MG (LORTAB) TAB PO PRN ×2 (14:24→20:52)
[2021-01-13 16:00] VITALS: BP 126/55
[2021-01-13 19:34] VITALS: BP 181/65
[2021-01-13] MEDS: NICOTINE PATCH REMOVAL TP SCH (20:53)
[2021-01-13] MEDS: SENNA W/DOCUSATE (SENOKOT S) TABLET PO SCH (20:53)
[2021-01-13] MEDS: SIMvastatin 40 MG (ZOCOR) TAB PO SCH (20:53)
[2021-01-14] VITALS: BP 141/66
[2021-01-14] MEDS: RT-ALBUTEROL/IPRATROPIUM 3 ML (DUONEB) VIAL INH SCH ×4 (02:29→21:00)
[2021-01-14] MEDS: HYDROcodone/APAP 5 MG/325 MG (LORTAB) TAB PO PRN ×3 (03:57→20:44)
--- NOTE | 2021-01-14 07:33 | Physical Therapy Daily Note ---
PT Daily Note-Current Subjective Pt in bed upon arrival to room, agreeable to PT treatment. Requests need to use the [facility]. Denies pain this date. Appearance Following session, pt seated in recliner chair, BLEs elevated with call light, tray and table within reach. All needs met at this time. Mental Status Patient Orientation: Person, Place, Situation Attachments: Oxygen Transfers SCALE: Activities may be completed with or without assistive devices. 6-Bqnsxmucju-sxewfso completes the activity by him/herself with no assistance from a helper. 5-Set-up or Clean-up Assistance-helper sets up or cleans up; patient completes activity. [place] assists only prior to or following the activity. 4-Supervision or Touching Assistance-helper provides verbal cues and/or touching/steadying and/or contact guard assistance as patient completes activity. Assistance may be provided throughout the activity or intermittently. 3-Partial/Moderate Assistance-helper does LESS THAN HALF the effort. [place] lift s, holds or supports trunk or limbs, but provides less than half the effort. 2-Substantial/Maximal Assistance-helper does MORE THAN HALF the effort. [place] lifts or holds trunk or limbs and provides more than half the effort. 6-Upbjgnpnz-qprhbe does ALL the effort. Patient does none of the effort to complete the activity. Or, the assistance of 2 or more helpers is required for the patient to complete the activity. If activity was not attempted, code reason: 7-Patient Refused. 9-Not Applicable-not attempted and the patient did not perform the activity before the current illness, exacerbation or injury. 10-Not Attempted due to Environmental Limitations-(lack of equipment, weather restraints, etc.). 88-Not Attempted due to Medical Conditions or Safety Concerns. Roll Left & Right (QC): 4 Sit to Lying (QC): 4 Lying to Sitting/Side of Bed(Q: 4 Sit to Stand (QC): 3 Gait Training Distance: 10' Gait Assistive Device: FWW Short ambulation to and from [facility] this date, good ambulation and balance noted. Assessment Current Status: Fair Progress Pt tolerated well, is having issues with BM this date. RN notified. PT Jail Goals Dental Laboratory Manager Goals PT Jail Goals Time Frame: Jan 18, 2021 Sit to Lying (QC): 6 Lying-Sitting on Side/Bed(QC): 6 Sit to Stand (QC): 5 Chair/Eyl-mr-Tiafp Xfer(QC): 5 Walk 50ft with 2 Turns (QC): 5 PT Plan Problem List Problem List: Activity Tolerance, Functional Strength, Safety, Balance, Gait, Transfer, Bed Mobility, ROM Treatment/Plan Treatment Plan: Continue Plan of Care Treatment Plan: Bed Mobility, Education, Functional Activity Benji, Functional Strength, Gait, Safety, Therapeutic Exercise, Transfers Treatment Duration: Jan 18, 2021 Frequency: 6 times per week Estimated Hrs Per Day: .5 hour per day Patient and/or Family Agrees t: Yes Time/GCodes Time In: 720 Time Out: 738 Total Billed Treatment 1 visit FA (18') MAC BOLANOS PT Jan 14, 2021 07:33
[2021-01-14 07:34] VITALS: BP 142/67
[2021-01-14] MEDS: inSUlin ASPART (NovoLOG) 1 UNIT/0.01 ML (CHARGE PER UNIT) SC SCH ×4 (07:37→20:47)
[2021-01-14] MEDS: ASPIRIN 325 MG (5 GR) TABLET PO SCH (09:20)
[2021-01-14] MEDS: SENNA W/DOCUSATE (SENOKOT S) TABLET PO SCH ×2 (09:21→20:45)
[2021-01-14] MEDS: LACTOBACILLUS ACIDOPHILUS (PROBIOTIC) CAPSULE PO SCH ×3 (09:21→17:33)
[2021-01-14] MEDS: PANTOPRAZOLE 20 MG TABLET (PROTONIX) PO SCH (09:21)
[2021-01-14] MEDS: lisINopril 10 MG (PRINIVIL) TABLET PO SCH (09:21)
[2021-01-14] MEDS: BRIMONIDINE 0.2% (ALPHAGAN) OPHTH SOLN 5 ML BTL OU SCH ×2 (09:21→20:45)
[2021-01-14] MEDS: ATENOLOL 50 MG (TENORMIN) TAB PO SCH (09:21)
[2021-01-14] MEDS: NICOTINE 14 MG (NICODERM) PATCH TD SCH (09:22)
--- NOTE | 2021-01-14 11:58 | Progress Note ---
Subjective Date Seen by a Provider: Jan 14, 2021 Time Seen by a Provider: 11:52 Subjective/Events-last exam Fwup pneumonia, COPD, acute on chronic respiratory failure, uncontrolled DMII, weakness. Resting in bed. Family asking about rehab as an option. Objective Exam Vital Signs Date Time Temp Pulse Resp B/P (MAP) Pulse Ox O2 Delivery O2 Flow Rate FiO2 01/14/21 10:23 91 Nasal Cannula 3.00 01/14/21 08:00 96 Nasal Cannula 2.00 01/14/21 07:34 36.1 89 18 142/67 (92) 94 Nasal Cannula 2.00 01/14/21 00:00 37.3 96 18 141/66 (91) 94 Nasal Cannula 2.00 01/13/21 21:11 91 Nasal Cannula 3.00 01/13/21 20:00 97 Nasal Cannula 2.00 01/13/21 19:34 37.4 89 16 181/65 (103) 93 Nasal Cannula 2.00 01/13/21 16:00 37.0 86 16 126/55 (78) 94 Nasal Cannula 2.00 01/13/21 15:44 92 Nasal Cannula 2.00 01/13/21 12:00 37.1 84 16 153/98 (116) 93 Nasal Cannula 2.00 I & O 01/14/21 07:00 Intake Total 2000 ml Balance 2000 ml Capillary Refill : General Appearance: No Apparent Distress Neck: Supple Respiratory: Crackles, Decreased Breath Sounds Cardiovascular: Regular Rate, Rhythm, Systolic Murmur, Gallop/S4 Gastrointestinal: normal bowel sounds, non tender, soft Extremity: Non Tender, No Calf Tenderness, No Pedal Edema Neurologic/Psychiatric: Alert, Oriented x3 Results Lab Laboratory Tests 01/13/21 15:41: Glucometer 210H 01/13/21 18:50: Glucometer 214H 01/14/21 06:22: Glucometer 161H 01/14/21 10:11: Glucometer 261H Assessment/Plan Assessment/Plan Assess & Plan/Chief Complaint 1. Bilateral Pneumonia--continue levaquin 2. Acute on Chronic Respiratory Failure--on oxygen via NC 3. COPD--on SVNs 4. Uncontrolled DMII--on levemir and SSI, improving 5. Weakness--doing PT/OT, family asking for rehab eval--discussed not sure he will qualify due to needing to be able to do 3hrs of therapy a day and dependant on insurance but will put farhat in MICHAEL MANZO DO Jan 14, 2021 11:58
[2021-01-14 15:23] VITALS: BP 122/70
[2021-01-14 16:02] VITALS: BP 122/70
[2021-01-14] MEDS ORDERED: RT-ALBUTEROL/IPRATROPIUM 3 ML (DUONEB) VIAL INH PRN (17:00)
[2021-01-14] MEDS: SIMvastatin 40 MG (ZOCOR) TAB PO SCH (20:45)
[2021-01-14] MEDS: NICOTINE PATCH REMOVAL TP SCH (20:47)
[2021-01-15 01:10] VITALS: BP 158/74
[2021-01-15] MEDS: RT-ALBUTEROL/IPRATROPIUM 3 ML (DUONEB) VIAL INH SCH ×4 (02:16→21:17)
[2021-01-15] MEDS: inSUlin ASPART (NovoLOG) 1 UNIT/0.01 ML (CHARGE PER UNIT) SC SCH ×4 (06:10→20:43)
[2021-01-15 08:00] VITALS: BP 169/71
[2021-01-15] MEDS: PANTOPRAZOLE 20 MG TABLET (PROTONIX) PO SCH (08:29)
[2021-01-15] MEDS: lisINopril 10 MG (PRINIVIL) TABLET PO SCH (08:29)
[2021-01-15] MEDS: LACTOBACILLUS ACIDOPHILUS (PROBIOTIC) CAPSULE PO SCH ×3 (08:29→17:15)
[2021-01-15] MEDS: SENNA W/DOCUSATE (SENOKOT S) TABLET PO SCH ×2 (08:29→20:26)
[2021-01-15] MEDS: ATENOLOL 50 MG (TENORMIN) TAB PO SCH (08:29)
[2021-01-15] MEDS: ASPIRIN 325 MG (5 GR) TABLET PO SCH (08:29)
[2021-01-15] MEDS: NICOTINE 14 MG (NICODERM) PATCH TD SCH (08:29)
[2021-01-15] MEDS: HYDROcodone/APAP 5 MG/325 MG (LORTAB) TAB PO PRN ×2 (08:36→20:26)
[2021-01-15] MEDS: BRIMONIDINE 0.2% (ALPHAGAN) OPHTH SOLN 5 ML BTL OU SCH ×2 (09:11→20:32)
[2021-01-15 09:47] LABS: HEMATOCRIT 30 % (40-54); HEMOGLOBIN 10.3 g/dL (13.3-17.7); MEAN CORPUSCULAR HEMOGLOBIN 35 pg (25-34); MEAN CORPUSCULAR HGB CONC 35 g/dL (32-36); MEAN CORPUSCULAR VOLUME 101 fL (80-99); MEAN PLATELET VOLUME 9.6 fL (9.0-12.2); PLATELET COUNT 167 10^3/uL (130-400)
--- NOTE | 2021-01-15 09:47 | Progress Note ---
Subjective Date Seen by a Provider: Jan 15, 2021 Time Seen by a Provider: 09:39 Subjective/Events-last exam Fwup pneumonia, COPD, acute on chronic respiratory failure, uncontrolled DMII, weakness. Had at least 3 episodes of left sided chest pain this morning with the last episode radiating to his left arm. Currently denies CP and c/o soreness in his bottom. Objective Exam Vital Signs Date Time Temp Pulse Resp B/P (MAP) Pulse Ox O2 Delivery O2 Flow Rate FiO2 01/15/21 08:00 36.5 110 20 169/71 (103) 93 Nasal Cannula 2.00 01/15/21 02:16 91 Nasal Cannula 3.00 01/15/21 01:10 36.6 89 18 158/74 (102) 93 Nasal Cannula 2.00 01/14/21 21:00 91 Nasal Cannula 3.00 01/14/21 20:00 Nasal Cannula 2.00 01/14/21 16:02 36.6 86 92 32 01/14/21 15:27 92 Nasal Cannula 3.00 01/14/21 15:23 36.6 91 18 122/70 (87) 95 Nasal Cannula 2.00 01/14/21 10:23 91 Nasal Cannula 3.00 I & O 01/15/21 07:00 Intake Total 1150 ml Balance 1150 ml Capillary Refill : General Appearance: No Apparent Distress Neck: Supple Respiratory: Rales Cardiovascular: Regular Rate, Rhythm, Gallop/S4, Other (extra beats) Gastrointestinal: normal bowel sounds, soft, tenderness (epigastric) Extremity: Non Tender, No Calf Tenderness, No Pedal Edema Neurologic/Psychiatric: Alert, Oriented x3 Skin: Warm/Dry Results Lab Laboratory Tests 01/14/21 10:11: Glucometer 261H 01/14/21 14:30: Glucometer 330H 01/14/21 19:16: Glucometer 223H 01/15/21 06:09: Glucometer 125H Assessment/Plan Assessment/Plan Assess & Plan/Chief Complaint 1. Bilateral Pneumonia--continue levaquin, repeat CXR, add Lovenox for DVT prophylaxis 2. Acute on Chronic Respiratory Failure--on oxygen via NC 3. COPD--on SVNs 4. Uncontrolled DMII--on levemir and SSI, improving 5. Weakness--doing PT/OT, family asking for rehab eval--discussed not sure he will qualify due to needing to be able to do 3hrs of therapy a day and dependant on insurance--was planning on putting in rehab eval today but with CP onset will hold 6. Chest Pain with history of CAD--EKG, troponin-I, CK-MB, CXR now, consult cardiology, has nitro MICHAEL Rosenthal DO Jan 15, 2021 09:47
--- NOTE | 2021-01-15 09:55 | Diagnostic Imaging Report ---
INDICATION: Chest pain COMPARISON: 01/12/2021 TECHNIQUE: Single radiograph of the chest dated 01/15/2021 FINDINGS: The cardiac silhouette is enlarged, though stable. Significant bilateral mixed interstitial and airspace opacities are present, greatest within the right upper lung and left lung base. These opacities have slightly worsened since the prior examination. Tiny bibasilar pleural effusions are present. No pneumothorax. No acute osseous abnormality. IMPRESSION: Slight worsening of significant bilateral mixed interstitial and airspace pulmonary opacities. Trace pleural effusions. Persistent cardiomegaly. Dictated by: Dictated on workstation # [id number]
[2021-01-15] MEDS: ENOXAPARIN 40 MG/0.4 ML (LOVENOX) SYR SC SCH (09:56)
[2021-01-15 09:59] LABS: ALBUMIN 2.9 GM/DL (3.2-4.5); CHLORIDE 99 MMOL/L (98-107); SODIUM 136 MMOL/L (135-145)
[2021-01-15 10:00] LABS: CALCIUM 8.9 MG/DL (8.5-10.1)
[2021-01-15 10:01] LABS: GLUCOSE 159 MG/DL (70-105); TOTAL PROTEIN 6.2 GM/DL (6.4-8.2)
[2021-01-15 10:03] LABS: BILIRUBIN,TOTAL 0.9 MG/DL (0.1-1.0); CARBON DIOXIDE 22 MMOL/L (21-32)
[2021-01-15 10:05] LABS: ALKALINE PHOSPHATASE 109 U/L (40-136); CREATININE SERUM 0.96 MG/DL (0.60-1.30); GFR ESTIMATED > 60
[2021-01-15 10:06] LABS: BUN/CREATININE RATIO 11
[2021-01-15 10:08] LABS: ALANINE AMINOTRANSFERASE 48 U/L (0-55)
[2021-01-15 10:14] LABS: CREATINE KINASE MB 1.4 NG/ML (<6.6)
[2021-01-15 16:05] VITALS: BP 112/67
--- NOTE | 2021-01-15 17:18 | Consultation-Cardiology ---
HPI-Cardiology Cardiology Consultation: Date of Consultation 01/15/21 Time Seen by a Provider: 15:00 Date of Admission Attending Physician Violeta Ash MD Admitting Physician Violeta Ash MD Consulting Physician MARLENY MOORE MD, MA, FACP, FACC, [facility], CCDS Physician requesting consult: Dr Monsalve (covering for Dr Ash) HPI: Chief Complaint: Reason for consultation: Chest discomfort HPI 85 yo man admitted to Dr Ash's for gen malaise and shortness of breath; has been diagnosed to have pneumonia. Had some chest discomfort this am that he doesn't recall quite well at the time of this exam. Family says he was reporting chest discomfort involving the whole chest, mild, w/o radiation, w/o aggravating or relieving factors, w/o prior occurrence. This resolved gradually over a course of several hours. No palp or syncope MUT-Lmauwk-Gveijm Hx Patient Social History Marrital Status: Number of Children: 5 Living Status: LIVES WITH SPOUSE IN THEIR HOME Employed/Student: retired Smoking Status: Current Everyday Smoker Cigaretts per day: 20 2nd Hand Smoke Exposure: Yes Alcohol Use?: No Pt feels they are or have been: No Immunizations Up To Date Date of Pneumonia Vaccine: May 18, 2019 Date of Influenza Vaccine: May 18, 2019 Past Medical History PMH As described under Assessment. Allergies and Home Medications Allergies Coded Allergies: cefuroxime (Verified Allergy, Mild, GI UPSET, 03/22/20) Home Medications Alprazolam 0.5 Mg Tablet, 0.5 MG PO TID PRN for ANXIETY, (Reported) Last Action: Reviewed Aspirin 325 Mg Tablet, 325 MG PO DAILY, (Reported) Last Action: Reviewed Atenolol 50 Mg Tablet, 50 MG PO DAILY, (Reported) Last Action: Reviewed Brimonidine Tartrate 5 Ml Btl, 1 DROP OU BID, (Reported) Last Action: Reviewed Fish Oil/Dha/Epa 1 Each Capsule, 1,200 MG PO DAILY, (Reported) Last Action: Reviewed Hydrocodone/Acetaminophen 1 Each Tablet, 1 EACH PO Q6H PRN for PAIN-MODERATE (5- 7), (Reported) Last Action: Reviewed Insulin Glargine,Hum.rec.anlog 300 Unit/1 Ml Insuln.pen, 35 UNIT SQ HS, (Reported) Last Action: Reviewed Lisinopril 10 Mg Tablet, 10 MG PO DAILY, (Reported) Last Action: Reviewed Metformin HCl 500 Mg Tablet, 500 MG PO HS, (Reported) Last Action: Reviewed Multivits,Stress Formula 1 Each Tablet, 1 EACH PO DAILY, (Reported) Last Action: Reviewed Nitroglycerin 0.4 Mg Tab.subl, 0.4 MG SL PRN, (Reported) Last Action: Reviewed Pantoprazole Sodium 40 Mg Tablet.dr, 40 MG PO BID, (Reported) Last Action: Reviewed Simvastatin 40 Mg Tablet, 40 MG PO HS, (Reported) Last Action: Reviewed Tamsulosin HCl 0.4 Mg Cap, 0.4 MG PO DAILY, (Reported) Last Action: Reviewed Patient Home Medication List Home Medication List Reviewed: Yes Physical Exam-Cardiology Physical Exam Vital Signs/I&O 01/15/21 01/15/21 01/15/21 01/15/21 08:00 08:00 10:04 15:53 Temp 36.5 Pulse 110 Resp 20 B/P (MAP) 169/71 (103) Pulse Ox 96 93 92 94 O2 Delivery Nasal Cannula Nasal Cannula Nasal Cannula Nasal Cannula O2 Flow Rate 2.00 2.00 3.00 3.00 01/15/21 16:05 Temp 36.1 Pulse 80 Resp 18 B/P (MAP) 112/67 (82) Pulse Ox 95 O2 Delivery Nasal Cannula O2 Flow Rate 3.00 01/15/21 00:00 Intake Total 1050 ml Balance 1050 ml Capillary Refill : Constitutional: well-developed, well-nourished, other (slow to respond to questions, appears mildly confused) HEENT: PERRL, EOMI Neck: carotid pulses are 2 + bilaterally Respiratory: No accessory muscle use; other (fair air entry, prolonged exp, diminished air entry at the bases) Cardiovascular: irregularly irregular, S1 and S2, systolic murmur (soft LISA at card base) Gastrointestinal: No tender; soft; No guarding, No rebound; audible bowel sounds Extremities: other (mild, bilateral leg edema); No clubbing, No cyanosis Neurologic/Psychiatric: other (appears to be able to move all limbs equally) Skin: No rash on exposed areas, No ulcerations on exposed areas Data Review Labs Laboratory Tests 01/14/21 19:16: Glucometer 223H 01/15/21 06:09: Glucometer 125H 01/15/21 09:40: White Blood Count 7.0, Red Blood Count 2.92L, Hemoglobin 10.3L, Hematocrit 30L, Mean Corpuscular Volume 101H, Mean Corpuscular Hemoglobin 35H, Mean Corpuscular Hemoglobin Concent 35, Red Cell Distribution Width 13.5, Platelet Count 167, Mean Platelet Volume 9.6, Sodium Level 136, Potassium Level 4.0, Chloride Level 99, Carbon Dioxide Level 22, Anion Gap 15H, Blood Urea Nitrogen 11, Creatinine 0.96, Estimat Glomerular Filtration Rate > 60, BUN/Creatinine Ratio 11, Glucose Level 159H, Calcium Level 8.9, Corrected Calcium 9.8, Total Bilirubin 0.9, Aspartate Amino Transf (AST/SGOT) 34, Alanine Aminotransferase (ALT/SGPT) 48, Alkaline Phosphatase 109, Creatine Kinase MB 1.4, Troponin I < 0.028, B-Type Natriuretic Peptide 228.5H, Total Protein 6.2L, Albumin 2.9L 01/15/21 15:39: Glucometer 222H Laboratory Tests 01/15/21 09:40 A/P-Cardiology Assessment/Admission Diagnosis Chest discomfort on the morning of 01/16/20 w/o evidence of ACS, etiology un determined - troponin negative on 01/15/21 - NSR and PACs seen on ECG of , w/o evidence of ischemia Ac exac of COPD due to bilat pneumonia CAD - card cath of 1999: mod CAD - MPI of 2019: small apical infarction or thinning, LVEF 48% PAD - severe PAD on noninvasive w/u of Apr 2019, conservative management per patient desire Chronic, bilat leg edema due to venous insufficiency Mild carotid arterial disease on carotid u/s of October 2018 H/o hypertension and hyperlipidemia Chronic tobacco use (smokes cigs) H/o mild sinus node dysfunction w/o documentation of any A F/Fl Discussion and Recomendations * Continue ASA * Advised to refrain from tobacco use * Tele * Echo * Monitor labs * Further recs to be base on hosp course MARLENY MOORE MD FACP FAC CCDS Jan 15, 2021 17:18
[2021-01-15] MEDS: SIMvastatin 40 MG (ZOCOR) TAB PO SCH (20:26)
[2021-01-15] MEDS: ALPRAZolam 0.5 MG (XANAX) TAB PO PRN (20:26)
[2021-01-15] MEDS: NICOTINE PATCH REMOVAL TP SCH (20:43)
[2021-01-15 23:58] VITALS: BP 123/69
[2021-01-16] MEDS: RT-ALBUTEROL/IPRATROPIUM 3 ML (DUONEB) VIAL INH SCH ×3 (02:48→14:48)
[2021-01-16] MEDS: inSUlin ASPART (NovoLOG) 1 UNIT/0.01 ML (CHARGE PER UNIT) SC SCH ×4 (07:39→20:17)
[2021-01-16 08:00] VITALS: BP 181/71
[2021-01-16] MEDS: ATENOLOL 50 MG (TENORMIN) TAB PO SCH (08:51)
[2021-01-16] MEDS: LACTOBACILLUS ACIDOPHILUS (PROBIOTIC) CAPSULE PO SCH ×3 (08:51→17:22)
[2021-01-16] MEDS: SENNA W/DOCUSATE (SENOKOT S) TABLET PO SCH ×2 (08:51→20:09)
[2021-01-16] MEDS: PANTOPRAZOLE 20 MG TABLET (PROTONIX) PO SCH (08:51)
[2021-01-16] MEDS: lisINopril 10 MG (PRINIVIL) TABLET PO SCH (08:51)
[2021-01-16] MEDS: NICOTINE 14 MG (NICODERM) PATCH TD SCH (08:52)
[2021-01-16] MEDS: ASPIRIN 325 MG (5 GR) TABLET PO SCH (08:52)
[2021-01-16] MEDS: BRIMONIDINE 0.2% (ALPHAGAN) OPHTH SOLN 5 ML BTL OU SCH ×2 (08:53→20:11)
[2021-01-16] MEDS: ENOXAPARIN 40 MG/0.4 ML (LOVENOX) SYR SC SCH (09:43)
[2021-01-16] MEDS ORDERED: ACETAMINOPHEN 325 MG TABLET PO PRN (09:45)
--- NOTE | 2021-01-16 10:19 | Physical Therapy Daily Note ---
PT Daily Note-Current Subjective Patient agrees to PT. Family present and very attentive. Mental Status Patient Orientation: Normal For Age Attachments: Oxygen (3L O2 [place]) Transfers SCALE: Activities may be completed with or without assistive devices. 2-Mwrrhwhsoz-rzkityw completes the activity by him/herself with no assistance from a helper. 5-Set-up or Clean-up Assistance-helper sets up or cleans up; patient completes activity. [place] assists only prior to or following the activity. 4-Supervision or Touching Assistance-helper provides verbal cues and/or touching/steadying and/or contact guard assistance as patient completes acti vity. Assistance may be provided throughout the activity or intermittently. 3-Partial/Moderate Assistance-helper does LESS THAN HALF the effort. [place] lifts, holds or supports trunk or limbs, but provides less than half the effort. 2-Substantial/Maximal Assistance-helper does MORE THAN HALF the effort. [place] lifts or holds trunk or limbs and provides more than half the effort. 0-Xetsqbdbc-azcxup does ALL the effort. Patient does none of the effort to complete the activity. Or, the assistance of 2 or more helpers is required for the patient to complete the activity. If activity was not attempted, code reason: 7-Patient Refused. 9-Not Applicable-not attempted and the patient did not perform the activity before the current illness, exacerbation or injury. 10-Not Attempted due to Environmental Limitations-(lack of equipment, weather restraints, etc.). 88-Not Attempted due to Medical Conditions or Safety Concerns. Sit to Stand (QC): 4 (CGA to SBA) Toilet Transfer (QC): 3 Gait Training Does the Patient Walk?: Yes Distance: 600' Walk 10 feet (QC): 4 (SBA) Walk 50 ft with 2 Turns(QC): 4 (SBA) Walk 150 ft (QC): 4 (SBA) Gait Assistive Device: FWW very slow, shuffle gait sequence with kyphotic posture Treatments patient dressed with set up (pants and tshirt) Assessment Patient tolerated treatment well and fatigued with activity. Patient remains up in recliner with needs met. PT Correction Goals Correction Goals PT Parts Technician Goals Time Frame: Jan 18, 2021 Sit to Lying (QC): 6 Lying-Sitting on Side/Bed(QC): 6 Sit to Stand (QC): 5 Chair/Voo-pt-Rxivp Xfer(QC): 5 Walk 50ft with 2 Turns (QC): 5 PT Plan Treatment/Plan Treatment Plan: Continue Plan of Care Treatment Plan: Bed Mobility, Education, Functional Activity Benji, Functional Strength, Gait, Safety, Therapeutic Exercise, Transfers Treatment Duration: Jan 18, 2021 Frequency: 6 times per week Estimated Hrs Per Day: .5 hour per day Patient and/or Family Agrees t: Yes Time/GCodes Time In: 851 Time Out: 914 Total Billed Treatment Time: 23 Total Billed Treatment 1 visit FA x 2 23 min CHLOE ORLANDO PT Jan 16, 2021 10:19
--- NOTE | 2021-01-16 11:00 | Occupational Ther Daily Note ---
OT Current Status-Daily Note Subjective Pt dozing in recliner, woke easily. Pt agrees to therapy. Family is very attentive. No c/o pain only fatigue. Mental Status/Objective Patient Orientation: Person, Place, Time, Situation Attachments: IV, Oxygen ADL-Treatment Pt agrees to brushing teeth at bathroom sink. Min A for sit to stand, CGA for ambulating to bathroom. Pt able to complete oral care sitting at sink by self. Pt fell asleep during task. Pt ambulated back to bed using FWW. Min A for EOB to supine. After session, pt lying in bed and closed eyes. Call light/phone in reach. Family present in room. Therapy Code Descriptions/Definitions Functional [place] Measure: 0=Not Assessed/NA 4=Minimal Assistance 1=Total Assistance 5=Supervision or Setup 2=Maximal Assistance 6=Modified [place] 3=Moderate Assistance 7=Complete IndependenceSCALE: Activities may be completed with or without assistive devices. 6-Zwogxunxkl-vpeqamd completes the activity by him/herself with no assistance from a helper. 5-Set-up or Clean-up Assistance-helper sets up or cleans up; patient completes activity. [place] assists only prior to or following the activity. 4-Supervision or Touching Assistance-helper provides verbal cues and/or touching/steadying and/or contact guard assistance as patient completes activ ity. Assistance may be provided throughout the activity or intermittently. 3-Partial/Moderate Assistance-helper does LESS THAN HALF the effort. [place] lifts, holds or supports trunk or limbs, but provides less than half the effort. 2-Substantial/Maximal Assistance-helper does MORE THAN HALF the effort. [place] lifts or holds trunk or limbs and provides more than half the effort. 1-Gajbuzwpf-gllkps does ALL the effort. Patient does none of the effort to complete the activity. Or, the assistance of 2 or more helpers is required for the patient to complete the activity. If activity was not attempted, code reason: 7-Patient Refused. 9-Not Applicable-not attempted and the patient did not perform the activity before the current illness, exacerbation or injury. 10-Not Attempted due to Environmental Limitations-(lack of equipment, weather restraints, etc.). 88-Not Attempted due to Medical Conditions or Safety Concerns. Oral Hygiene (QC): 6 Pt takes increased time to complete all tasks due to fatigue, falling asleep during task and slow movements. OT Industrial Recruiter Goals Long-Term Goals Time Frame: Jan 20, 2021 Eating (QC): 6 Oral Hygiene (QC): 6 Toileting Hygiene (QC): 6 Shower/Bathe Self (QC): 4 Upper Body Dressing (QC): 5 Lower Body Dressing (QC): 4 On/Off Footwear (QC): 4 Additional Goals: 1-Demonstrate ADL Tasks, 2-Verbalize Understanding, 3- ImproveStrength/Benji 1=Demonstrate adherence to instructed precautions during ADL tasks. 2=Patient will verbalize/demonstrate understanding of assistive devices/modifications for ADL. 3=Patient will improve strength/tolerance for activity to enable patient to perform ADL's. OT Education/Plan Problem List/Assessment Assessment: Decreased Activ Tolerance, Impaired Self-Care Skills Pt would benefit from skilled OT services in order to increase BUE strength and activity tolerance, and to increase safety and independence with ADLs and functional tasks in order to maximize LOF for safe return home. Discharge Recommendations Plan/Recommendations: Continue POC Treatment Plan/Plan of Care Patient would benefit from OT for education, treatment and training to promote independence in ADL's, mobility, safety and/or upper extremity function for AD L's. Plan of Care: ADL Retraining, Functional Mobility, UE Funct Exercise/Act Treatment Duration: Jan 20, 2021 Frequency: 5 times per week Estimated Hrs Per Day: .25 hour per day Rehab Potential: Fair Time/GCodes Start Time: 10:30 Stop Time: 11:00 Total Time Billed (hr/min): 30 Billed Treatment Time 1 visit-ADL 2 (30 min) EDDIE MORENO Jan 16, 2021 11:00
--- NOTE | 2021-01-16 12:01 | Progress Note - Cardiology ---
Cardiology SOAP Progress Note Subjective: Gen weakness and malaise No cp or palp or syncope Shortness of breath present No swelling No n/v/d Objective: I&O/Vital Signs 01/16/21 01/16/21 01/16/21 01/16/21 02:48 08:00 08:00 10:19 Temp 36.0 Pulse 91 Resp 16 B/P (MAP) 181/71 (107) Pulse Ox 92 94 91 O2 Delivery Nasal Cannula Nasal Cannula Nasal Cannula Nasal Cannula O2 Flow Rate 3.00 3.00 3.00 3.00 01/16/21 00:00 Intake Total 815 ml Balance 815 ml Weight (Pounds): 149 Weight (Ounces): 6.0 Weight (Calculated Kilograms): 67.573961 Constitutional: well-developed, well-nourished, other (slow to respond to questions, appears mildly confused) Respiratory: No accessory muscle use; other (fair air entry, prolonged exp, diminished air entry at the bases) Cardiovascular: irregularly irregular, S1 and S2, systolic murmur (soft LISA at card base) Gastrointestional: No tender; soft; No guarding, No rebound; audible bowel sounds Extremities: other (mild, bilateral leg edema); No clubbing, No cyanosis Neurologic/Psychiatric: other (appears to be able to move all limbs equally) Skin: No rash on exposed areas, No ulcerations on exposed areas Results/Procedures: Labs Laboratory Tests 01/15/21 15:39: Glucometer 222H 01/15/21 20:05: Glucometer 264H 01/16/21 06:17: Glucometer 94 01/16/21 11:04: Glucometer 270H Laboratory Tests 01/15/21 09:40 A/P: Assessment: Chest discomfort on the morning of 01/16/20 w/o evidence of ACS, etiology undetermined - troponin negative on 01/15/21 - NSR and PACs seen on ECG of , w/o evidence of ischemia Ac exac of COPD due to bilat pneumonia CAD - card cath of 1999: mod CAD - MPI of 2019: small apical infarction or thinning, LVEF 48% PAD - severe PAD on noninvasive w/u of Apr 2019, conservative management per patient desire Chronic, bilat leg edema due to venous insufficiency Mild carotid arterial disease on carotid u/s of October 2018 H/o hypertension and hyperlipidemia Chronic tobacco use (smokes cigs) H/o mild sinus node dysfunction w/o documentation of any A F/Fl Plan: * Complex management due to multiple comorbidities * I discussed his case with Dr Ash on the phone this am * I discussed his CV issues in detail with two of his daughters who were by the bedside today * Continue ASA * Advised to refrain from tobacco use * Supplemental oxygen as needed * Echo awaited * Tele. He had refused yesterday because the skin pads were causing discomfort, but agrees today * Monitor labs * Further recs to be base on hosp course MARLENY MOORE MD FACP FACC CCDS Jan 16, 2021 12:01
[2021-01-16] MEDS: HYDROcodone/APAP 5 MG/325 MG (LORTAB) TAB PO PRN ×2 (13:21→20:09)
[2021-01-16 16:02] VITALS: BP 120/56
--- NOTE | 2021-01-16 18:53 | Progress Note ---
Subjective Subjective Date Seen by Provider: Jan 16, 2021 Time Seen by Provider: 09:15 PT REPORTS THAT HE IS FEELING BETTER. FAMILY IS UPSET WITH SOME OF THE CARE HE RECEIVED OVER THE WEEKEND AND WANTED TO TALK ABOUT THEIR CONCERNS. HE STATES THAT HE IS MUCH STRONGER, FAMILY HAS NOTICED HIM MOVING AROUND MUCH BETTER, AND NOT COMPLAINING ABOUT ABDOMINAL PAIN. Review of Systems General: No Chills, No Night Sweats; Fatigue, Malaise HEENT: No Head Aches, No Dysphasia Pulmonary: Dyspnea; No Cough Cardiovascular: No: Chest Pain, Palpitations Gastrointestinal: No: Nausea, Vomiting, Abdominal Pain, Diarrhea Genitourinary: No Dysuria Neurological: Weakness; No: Confusion Objective Exam Vital Signs Vital Signs - First Documented 01/10/21 01/10/21 01/10/21 16:20 18:06 19:28 Temp 36.2 Pulse 101 Resp 18 B/P (MAP) 132/65 (87) Pulse Ox 92 O2 Delivery Room Air O2 Flow Rate 2.00 FiO2 21 Capillary Refill : General Appearance: No Apparent Distress HEENT: PERRL/EOMI, Pharynx Normal Neck: Supple Respiratory: Rales Cardiovascular: Regular Rate, Rhythm, Gallop/S4, Other (extra beats) Gastrointestinal: Normal Bowel Sounds, No Organomegaly, No Pulsatile Mass, Non Tender, Soft Rectal: Deferred Back: Normal Inspection, No Vertebral Tenderness Extremity: Non Tender, No Calf Tenderness, No Pedal Edema Neurologic/Psychiatric: Alert, Oriented x3 Skin: Warm/Dry Lymphatic: No Adenopathy Results Lab Laboratory Tests 01/15/21 20:05: Glucometer 264H 01/16/21 06:17: Glucometer 94 01/16/21 11:04: Glucometer 270H 01/16/21 15:53: Glucometer 257H Assessment/Plan Assessment/Plan Admission Dx DEHYDRATION ABDOMINAL PAIN PNEUMONIA TOBACCOISM COPD WEAKNESS GAIT INSTABILITY Assessment and Plan DEHYDRATION ABDOMINAL PAIN PNEUMONIA TOBACCOISM COPD WEAKNESS GAIT INSTABILITY DEHYDRATION - RESOLVED ABDOMINAL PAIN - CT ABDOMEN AND PELVIS - SEE REPORT BELOW - CT ANGIO ABD/PELV W WO 1. Bibasilar interstitial and airspace opacities consistent with acuity indeterminate infiltrates. This is greatest on the left. 2. 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 The great vessels arising from the aorta appear to be widely patent. 3. Uncomplicated diverticulosis. 4. Prostatomegaly. 5. Fat-containing bilateral inguinal hernias. - SENNA FOR CONSTIPATION PNEUMONIA - SEEN ON CT SCAN - STARTED ON LEVAQUIN, MONITOR CRX SERIALLY - STARTED ON BREATHING TREATMENT PER MAT PROTOCOL - IV FLUIDS STOPPED DUE TO SMALL PLEURAL EFFUSIONS - DISCUSSED WITH ON THE PHONE TODAY- SHOULD NOT ANTICIPATE A LARGE IMPROVEMENT DUE TO HIS COPD AND POOR EFFORT. - CONTINUE WITH OXYGEN VIA NC. - HE HAS REQUIRED OXYGEN OUTPT BUT REFUSES TO WEAR THE OXYGEN. TOBACCOISM - PT TO BE ON NICODERM PATCHES WHILE IN THE HOSPITAL. COPD - STARTED ON MAT PROTOCOL, MONITOR SYMPTOMS WEAKNESS WITH GAIT INSTABILITY - STARTED PHYSICAL THERAPY -WILL SEND ORDER FOR INPT REHAB CONSULT - POTENTIALLY DISCHARGE TO INPT REHAB IF HE QUALIFIES. Admission Dx DEHYDRATION ABDOMINAL PAIN PNEUMONIA TOBACCOISM COPD WEAKNESS GAIT INSTABILITY Clinical Quality Measures Admission Status Admission Dx DEHYDRATION ABDOMINAL PAIN PNEUMONIA TOBACCOISM COPD WEAKNESS GAIT INSTABILITY LAUREL SERRANO MD Jan 16, 2021 18:53
[2021-01-16 20:02] VITALS: BP 129/60
[2021-01-16] MEDS: SIMvastatin 40 MG (ZOCOR) TAB PO SCH (20:09)
[2021-01-16] MEDS: ALPRAZolam 0.5 MG (XANAX) TAB PO PRN (20:09)
[2021-01-16] MEDS: NICOTINE PATCH REMOVAL TP SCH (21:29)
[2021-01-17 00:27] VITALS: BP 141/67
[2021-01-17] MEDS: RT-ALBUTEROL/IPRATROPIUM 3 ML (DUONEB) VIAL INH SCH ×4 (01:52→21:05)
[2021-01-17 04:10] VITALS: BP 158/71
[2021-01-17] MEDS: inSUlin ASPART (NovoLOG) 1 UNIT/0.01 ML (CHARGE PER UNIT) SC SCH ×4 (06:14→20:39)
[2021-01-17 08:00] VITALS: BP 157/73
[2021-01-17] MEDS: NICOTINE 14 MG (NICODERM) PATCH TD SCH (09:11)
[2021-01-17] MEDS: ATENOLOL 50 MG (TENORMIN) TAB PO SCH (09:11)
[2021-01-17] MEDS: lisINopril 10 MG (PRINIVIL) TABLET PO SCH (09:11)
[2021-01-17] MEDS: SENNA W/DOCUSATE (SENOKOT S) TABLET PO SCH ×2 (09:11→20:40)
[2021-01-17] MEDS: PANTOPRAZOLE 20 MG TABLET (PROTONIX) PO SCH (09:12)
[2021-01-17] MEDS: ENOXAPARIN 40 MG/0.4 ML (LOVENOX) SYR SC SCH (09:12)
[2021-01-17] MEDS: BRIMONIDINE 0.2% (ALPHAGAN) OPHTH SOLN 5 ML BTL OU SCH ×2 (09:12→20:40)
[2021-01-17] MEDS: ASPIRIN 325 MG (5 GR) TABLET PO SCH (09:12)
[2021-01-17] MEDS: LACTOBACILLUS ACIDOPHILUS (PROBIOTIC) CAPSULE PO SCH ×3 (09:12→17:41)
--- NOTE | 2021-01-17 09:28 | Progress Note ---
Subjective Review of Systems General: No Chills, No Night Sweats; Fatigue, Malaise HEENT: No Head Aches, No Dysphasia Pulmonary: Dyspnea; No Cough Cardiovascular: No: Chest Pain, Palpitations Gastrointestinal: No: Nausea, Vomiting, Abdominal Pain, Diarrhea Genitourinary: No Dysuria Neurological: Weakness; No: Confusion Objective Exam Vital Signs Vital Signs - First Documented 01/11/21 01/14/21 00:13 16:02 Temp 36.4 Pulse 102 Resp 18 B/P (MAP) 121/56 (77) Pulse Ox 93 O2 Delivery Nasal Cannula O2 Flow Rate 2.00 FiO2 32 Capillary Refill : General Appearance: No Apparent Distress HEENT: PERRL/EOMI, Pharynx Normal Neck: Supple Respiratory: Rales Cardiovascular: Regular Rate, Rhythm, Gallop/S4, Other (extra beats) Gastrointestinal: Normal Bowel Sounds, No Organomegaly, No Pulsatile Mass, Non Tender, Soft Rectal: Deferred Back: Normal Inspection, No Vertebral Tenderness Extremity: Non Tender, No Calf Tenderness, No Pedal Edema Neurologic/Psychiatric: Alert, Oriented x3 Skin: Warm/Dry Lymphatic: No Adenopathy Results Lab Laboratory Tests 01/16/21 11:04: Glucometer 270H 01/16/21 15:53: Glucometer 257H 01/16/21 20:05: Glucometer 202H 01/17/21 06:07: Glucometer 108 Assessment/Plan Assessment/Plan Admission Dx DEHYDRATION ABDOMINAL PAIN PNEUMONIA TOBACCOISM COPD WEAKNESS GAIT INSTABILITY Assessment and Plan DEHYDRATION ABDOMINAL PAIN PNEUMONIA TOBACCOISM COPD WEAKNESS GAIT INSTABILITY DEHYDRATION - RESOLVED ABDOMINAL PAIN - CT ABDOMEN AND PELVIS - SEE REPORT BELOW - CT ANGIO ABD/PELV W WO 1. Bibasilar interstitial and airspace opacities consistent with acuity indeterminate infiltrates. This is greatest on the left. 2. 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 The great vessels arising from the aorta appear to be widely patent. 3. Uncomplicated diverticulosis. 4. Prostatomegaly. 5. Fat-containing bilateral inguinal hernias. - SENNA FOR CONSTIPATION PNEUMONIA - SEEN ON CT SCAN - STARTED ON LEVAQUIN, MONITOR CRX SERIALLY - STARTED ON BREATHING TREATMENT PER MAT PROTOCOL - IV FLUIDS STOPPED DUE TO SMALL PLEURAL EFFUSIONS - DISCUSSED WITH ON THE PHONE TODAY- SHOULD NOT ANTICIPATE A LARGE IMPROVEMENT DUE TO HIS COPD AND POOR EFFORT. - CONTINUE WITH OXYGEN VIA NC. - HE HAS REQUIRED OXYGEN OUTPT BUT REFUSES TO WEAR THE OXYGEN. TOBACCOISM - PT TO BE ON NICODERM PATCHES WHILE IN THE HOSPITAL. COPD - STARTED ON MAT PROTOCOL, MONITOR SYMPTOMS WEAKNESS WITH GAIT INSTABILITY - STARTED PHYSICAL THERAPY -WILL SEND ORDER FOR INPT REHAB CONSULT - POTENTIALLY DISCHARGE TO INPT REHAB IF HE QUALIFIES. Admission Dx DEHYDRATION ABDOMINAL PAIN PNEUMONIA TOBACCOISM COPD WEAKNESS GAIT INSTABILITY Clinical Quality Measures Admission Status Admission Dx DEHYDRATION ABDOMINAL PAIN PNEUMONIA TOBACCOISM COPD WEAKNESS GAIT INSTABILITY LAUREL SERRANO MD Jan 17, 2021 09:28
--- NOTE | 2021-01-17 10:01 | Physical Therapy Daily Note ---
PT Daily Note-Current Subjective Patient reports he is very weak today. Mental Status Patient Orientation: Person, Time, Situation Attachments: Oxygen Transfers SCALE: Activities may be completed with or without assistive devices. 0-Fnksjmqzan-lbuzuja completes the activity by him/herself with no assistance from a helper. 5-Set-up or Clean-up Assistance-helper sets up or cleans up; patient completes activity. [place] assists only prior to or following the activity. 4-Supervision or Touching Assistance-helper provides verbal cues and/or touching/steadying and/or contact guard assistance as patient completes activity. Assistance may be provided throughout the activity or intermittently. 3-Partial/Moderate Assistance-helper does LESS THAN HALF the effort. [place] lifts, holds or supports trunk or limbs, but provides less than half the effort. 2-Substantial/Maximal Assistance-helper does MORE THAN HALF the effort. [place] lifts or holds trunk or limbs and provides more than half the effort. 1-Ktotzwaid-kjvgsa does ALL the effort. Patient does none of the effort to complete the activity. Or, the assistance of 2 or more helpers is required for the patient to complete the activity. If activity was not attempted, code reason: 7-Patient Refused. 9-Not Applicable-not attempted and the patient did not perform the activity before the current illness, exacerbation or injury. 10-Not Attempted due to Environmental Limitations-(lack of equipment, weather restraints, etc.). 88-Not Attempted due to Medical Conditions or Safety Concerns. Lying to Sitting/Side of Bed(Q: 3 Sit to Stand (QC): 4 Chair/Szw-rr-Qnyjr Xfer(QC): 4 Toilet Transfer (QC): 4 Gait Training Does the Patient Walk?: Yes Distance: 200' Walk 10 feet (QC): 4 Walk 50 ft with 2 Turns(QC): 4 Walk 150 ft (QC): 4 Gait Assistive Device: FWW very slow, NBOS gait sequence/kyphotic posture Exercises Seated Therapy Exercises: Ankle pumps, Long arc quads, Hip flexion Assessment Patient requires time to complete all functional tasks. PT to increase activity as tolerated by patient. PT Alf Goals Alf Goals PT Study Abroad Coordinator Goals Time Frame: Jan 18, 2021 Sit to Lying (QC): 6 Lying-Sitting on Side/Bed(QC): 6 Sit to Stand (QC): 5 Chair/Ykr-xw-Dtzkm Xfer(QC): 5 Walk 50ft with 2 Turns (QC): 5 PT Plan Treatment/Plan Treatment Plan: Continue Plan of Care Treatment Plan: Bed Mobility, Education, Functional Activity Benji, Functional Strength, Gait, Safety, Therapeutic Exercise, Transfers Treatment Duration: Jan 18, 2021 Frequency: 6 times per week Estimated Hrs Per Day: .5 hour per day Patient and/or Family Agrees t: Yes Time/GCodes Time In: 839 Time Out: 902 Total Billed Treatment Time: 23 Total Billed Treatment 1 visit FA x 2 23 min CHLOE ORLANDO PT Jan 17, 2021 10:01
--- NOTE | 2021-01-17 10:11 | Progress Note - Cardiology ---
Cardiology SOAP Progress Note Subjective: Lying in bed Denies c/o CP C/O SOB unchanged from yesterday C/O fatigue Objective: I&O/Vital Signs 01/17/21 01/18/21 01/18/21 01/18/21 23:25 00:00 01:00 02:16 Temp 36.9 36.5 Pulse 100 100 110 Resp 20 B/P (MAP) 155/67 (96) Pulse Ox 91 90 90 O2 Delivery Nasal Cannula Nasal Cannula O2 Flow Rate 3.00 3.00 FiO2 28 01/18/21 01/18/21 01/18/21 07:18 07:35 08:00 Temp 36.8 Pulse 99 108 Resp 20 B/P (MAP) 119/76 (90) Pulse Ox 90 92 O2 Delivery Nasal Cannula Nasal Cannula O2 Flow Rate 3.00 4.00 01/18/21 00:00 Intake Total 1165 ml Output Total 500 ml Balance 665 ml Weight (Pounds): 149 Weight (Ounces): 6.0 Weight (Calculated Kilograms): 67.757264 Constitutional: well-developed, well-nourished, other (slow to respond to questions, appears mildly confused) Respiratory: No accessory muscle use; other (fair air entry, prolonged exp, diminished air entry at the bases) Cardiovascular: irregularly irregular, S1 and S2, systolic murmur (soft LISA at card base) Gastrointestional: No tender; soft; No guarding, No rebound; audible bowel sounds Extremities: other (mild, bilateral leg edema); No clubbing, No cyanosis Neurologic/Psychiatric: other (appears to be able to move all limbs equally) Skin: No rash on exposed areas, No ulcerations on exposed areas Results/Procedures: Labs Laboratory Tests 01/17/21 10:23: Glucometer 147H 01/17/21 15:18: Glucometer 219H 01/17/21 20:01: Glucometer 200H 01/18/21 05:22: Glucometer 136H A/P: Assessment: Chest discomfort on the morning of 01/16/20 w/o evidence of ACS, etiology undetermined - troponin negative on 01/15/21 - NSR and PACs seen on ECG of , w/o evidence of ischemia Ac exac of COPD due to bilat pneumonia CAD - card cath of 1999: mod CAD - MPI of 2019: small apical infarction or thinning, LVEF 48% PAD - severe PAD on noninvasive w/u of Apr 2019, conservative management per patient desire Chronic, bilat leg edema due to venous insufficiency Mild carotid arterial disease on carotid u/s of October 2018 H/o hypertension and hyperlipidemia Chronic tobacco use (smokes cigs) H/o mild sinus node dysfunction w/o documentation of any A F/Fl Plan: * Complex management due to multiple comorbidities * Continue ASA * Advised to refrain from tobacco use * Supplemental oxygen as needed * Echo awaited * Tele in place * Monitor labs ERWIN CHANG [facility] Jan 17, 2021 10:11
--- NOTE | 2021-01-17 11:42 | Occupational Ther Daily Note ---
OT Current Status-Daily Note Subjective Pt dozing in chair, woke to name. Pt agrees to therapy. No c/o pain only fatigue and cold. Pt given warm blanket at end of treatment. Mental Status/Objective Patient Orientation: Person, Place, Time, Situation Attachments: Oxygen ADL-Treatment Pt ambulates to bathroom with CGA for safety using FWW. CGA to transfer onto toilet, min A to stand up from toilet. Pt able to manipulate clothing over hips. Assist to thread L foot into pant leg and pt able to thread R foot then pull up with CGA. Then ambulate to bed and assist to go from sitting EOB to supine. After therapy, pt lying in bed with call light/phone in reach. All needs met in room. Family present in room. Therapy Code Descriptions/Definitions Functional Webster Measure: 0=Not Assessed/NA 4=Minimal Assistance 1=Total Assistance 5=Supervision or Setup 2=Maximal Assistance 6=Modified Webster 3=Moderate Assistance 7=Complete IndependenceSCALE: Activities may be completed with or without assistive devices. 0-Prxuoepooy-vowegwa completes the activity by him/herself with no assistance from a helper. 5-Set-up or Clean-up Assistance-helper sets up or cleans up; patient completes activity. [place] assists only prior to or following the activity. 4-Supervision or Touching Assistance-helper provides verbal cues and/or touching/steadying and/or contact guard assistance as patient completes activity. Assistance may be provided throughout the activity or intermittently. 3-Partial/Moderate Assistance-helper does LESS THAN HALF the effort. [place] lifts, holds or supports trunk or limbs, but provides less than half the effort. 2-Substantial/Maximal Assistance-helper does MORE THAN HALF the effort. [place] lifts or holds trunk or limbs and provides more than half the effort. 3-Oknsclnuv-xgmjda does ALL the effort. Patient does none of the effort to complete the activity. Or, the assistance of 2 or more helpers is required for the patient to complete the activity. If activity was not attempted, code reason: 7-Patient Refused. 9-Not Applicable-not attempted and the patient did not perform the activity before the current illness, exacerbation or injury. 10-Not Attempted due to Environmental Limitations-(lack of equipment, weather restraints, etc.). 88-Not Attempted due to Medical Conditions or Safety Concerns. Lower Body Dressing (QC): 3 Toileting Hygiene (QC): 4 Toilet Transfer (QC): 3 OT Dope [employer] Worker Goals Shelter Goals Time Frame: Jan 20, 2021 Eating (QC): 6 Oral Hygiene (QC): 6 Toileting Hygiene (QC): 6 Shower/Bathe Self (QC): 4 Upper Body Dressing (QC): 5 Lower Body Dressing (QC): 4 On/Off Footwear (QC): 4 Additional Goals: 1-Demonstrate ADL Tasks, 2-Verbalize Understanding, 3- ImproveStrength/Benji 1=Demonstrate adherence to instructed precautions during ADL tasks. 2=Patient will verbalize/demonstrate understanding of assistive devices/modifications for ADL. 3=Patient will improve strength/tolerance for activity to enable patient to perform ADL's. OT Education/Plan Problem List/Assessment Assessment: Decreased Activ Tolerance Pt would benefit from skilled OT services in order to increase BUE strength and activity tolerance, and to increase safety and independence with ADLs and functional tasks in order to maximize LOF for safe return home. Discharge Recommendations Plan/Recommendations: Continue POC Treatment Plan/Plan of Care Patient would benefit from OT for education, treatment and training to promote independence in ADL's, mobility, safety and/or upper extremity function for ADL's. Plan of Care: ADL Retraining, Functional Mobility, UE Funct Exercise/Act Treatment Duration: Jan 20, 2021 Frequency: 5 times per week Estimated Hrs Per Day: .25 hour per day Rehab Potential: Fair Time/GCodes Start Time: 11:10 Stop Time: 11:33 Total Time Billed (hr/min): 23 Billed Treatment Time 1 visit-ADL 2 (23 min) EDDIE MORENO Jan 17, 2021 11:42
[2021-01-17] MEDS: HYDROcodone/APAP 5 MG/325 MG (LORTAB) TAB PO PRN (14:16)
--- NOTE | 2021-01-17 14:43 | Progress Note - Cardiology ---
Cardiology SOAP Progress Note Subjective: Gen malaise and weakness No n/v/d No cp or palp or syncope Short of breath with mild activity Objective: I&O/Vital Signs 01/17/21 01/17/21 01/17/21 01/17/21 04:10 07:00 07:08 08:00 Temp 36.2 Pulse 75 95 Resp 20 B/P (MAP) 158/71 (100) Pulse Ox 98 89 O2 Delivery Nasal Cannula Nasal Cannula Nasal Cannula O2 Flow Rate 3.00 3.00 3.00 01/17/21 01/17/21 08:00 13:00 Temp 37.3 Pulse 106 99 Resp 16 B/P (MAP) 157/73 (101) Pulse Ox 92 O2 Delivery Nasal Cannula O2 Flow Rate 3.00 01/17/21 00:00 Intake Total 1400 ml Balance 1400 ml Weight (Pounds): 149 Weight (Ounces): 6.0 Weight (Calculated Kilograms): 67.375235 Constitutional: well-developed, well-nourished, other (slow to respond to questions, appears mildly confused) Respiratory: No accessory muscle use; other (fair air entry, prolonged exp, diminished air entry at the bases) Cardiovascular: irregularly irregular, S1 and S2, systolic murmur (soft LISA at card base) Gastrointestional: No tender; soft; No guarding, No rebound; audible bowel sounds Extremities: other (mild, bilateral leg edema); No clubbing, No cyanosis Neurologic/Psychiatric: other (appears to be able to move all limbs equally) Skin: No rash on exposed areas, No ulcerations on exposed areas Results/Procedures: Labs Laboratory Tests 01/16/21 15:53: Glucometer 257H 01/16/21 20:05: Glucometer 202H 01/17/21 06:07: Glucometer 108 01/17/21 10:23: Glucometer 147H A/P: Assessment: Chest discomfort on the morning of 01/16/20 w/o evidence of ACS, etiology undetermined - troponin negative on 01/15/21 - NSR and PACs seen on ECG of , w/o evidence of ischemia Ac exac of COPD due to bilat pneumonia CAD - card cath of 1999: mod CAD - MPI of 2019: small apical infarction or thinning, LVEF 48% PAD - severe PAD on noninvasive w/u of Apr 2019, conservative management per patient desire Chronic, bilat leg edema due to venous insufficiency Mild carotid arterial disease on carotid u/s of October 2018 H/o hypertension and hyperlipidemia Chronic tobacco use (smokes cigs) Mild sinus node dysfunction: NSR with frequent PACs and wandering atrial pac emaker w/o documentation of any A F/Fl Echo on 01/16/21: LVEF 70-75%, grade 1 jeffers dysfunction, mild AI, PASP 35-40 mmHg Plan: * Complex management due to multiple comorbidities * Continue ASA * Advised to refrain from tobacco use * Supplemental oxygen as needed * Tele in place * Monitor labs MARLENY MOORE MD FACP [facility] Jan 17, 2021 14:43
[2021-01-17] MEDS: ALPRAZolam 0.5 MG (XANAX) TAB PO PRN (15:39)
[2021-01-17 15:50] VITALS: BP 112/54
[2021-01-17] MEDS: SIMvastatin 40 MG (ZOCOR) TAB PO SCH (20:40)
[2021-01-17] MEDS: NICOTINE PATCH REMOVAL TP SCH (20:40)
[2021-01-18] VITALS: BP 155/67
[2021-01-18] MEDS: RT-ALBUTEROL/IPRATROPIUM 3 ML (DUONEB) VIAL INH SCH ×2 (02:16→07:18)
[2021-01-18] MEDS: inSUlin ASPART (NovoLOG) 1 UNIT/0.01 ML (CHARGE PER UNIT) SC SCH (06:25)
[2021-01-18 08:00] VITALS: BP 119/76
[2021-01-18] MEDS: SENNA W/DOCUSATE (SENOKOT S) TABLET PO SCH (08:36)
[2021-01-18] MEDS: ASPIRIN 325 MG (5 GR) TABLET PO SCH (08:36)
[2021-01-18] MEDS: PANTOPRAZOLE 20 MG TABLET (PROTONIX) PO SCH (08:36)
[2021-01-18] MEDS: ATENOLOL 50 MG (TENORMIN) TAB PO SCH (08:36)
[2021-01-18] MEDS: lisINopril 10 MG (PRINIVIL) TABLET PO SCH (08:36)
[2021-01-18] MEDS: HYDROcodone/APAP 5 MG/325 MG (LORTAB) TAB PO PRN (08:36)
[2021-01-18] MEDS: LACTOBACILLUS ACIDOPHILUS (PROBIOTIC) CAPSULE PO SCH ×2 (08:37→15:15)
[2021-01-18] MEDS: BRIMONIDINE 0.2% (ALPHAGAN) OPHTH SOLN 5 ML BTL OU SCH (08:37)
[2021-01-18] MEDS: NICOTINE 14 MG (NICODERM) PATCH TD SCH (08:37)
[2021-01-18] MEDS: ENOXAPARIN 40 MG/0.4 ML (LOVENOX) SYR SC SCH (08:42)
--- NOTE | 2021-01-18 09:58 | Progress Note - Cardiology ---
Cardiology SOAP Progress Note Objective: I&O/Vital Signs 01/17/21 01/18/21 01/18/21 01/18/21 23:25 00:00 01:00 02:16 Temp 36.9 36.5 Pulse 100 100 110 Resp 20 B/P (MAP) 155/67 (96) Pulse Ox 91 90 90 O2 Delivery Nasal Cannula Nasal Cannula O2 Flow Rate 3.00 3.00 FiO2 28 01/18/21 01/18/21 01/18/21 07:18 07:35 08:00 Temp 36.8 Pulse 99 108 Resp 20 B/P (MAP) 119/76 (90) Pulse Ox 90 92 O2 Delivery Nasal Cannula Nasal Cannula O2 Flow Rate 3.00 4.00 01/18/21 00:00 Intake Total 1165 ml Output Total 500 ml Balance 665 ml Weight (Pounds): 149 Weight (Ounces): 6.0 Weight (Calculated Kilograms): 67.634060 Constitutional: well-developed, well-nourished, other (slow to respond to questions, appears mildly confused) Respiratory: No accessory muscle use; other (fair air entry, prolonged exp, dim inished air entry at the bases) Cardiovascular: irregularly irregular, S1 and S2, systolic murmur (soft LISA at card base) Gastrointestional: No tender; soft; No guarding, No rebound; audible bowel sounds Extremities: other (mild, bilateral leg edema); No clubbing, No cyanosis Neurologic/Psychiatric: other (appears to be able to move all limbs equally) Skin: No rash on exposed areas, No ulcerations on exposed areas Results/Procedures: Labs Laboratory Tests 01/17/21 10:23: Glucometer 147H 01/17/21 15:18: Glucometer 219H 01/17/21 20:01: Glucometer 200H 01/18/21 05:22: Glucometer 136H A/P: Assessment: Chest discomfort on the morning of 01/16/20 w/o evidence of ACS, etiology undetermined - troponin negative on 01/15/21 - NSR and PACs seen on ECG of , w/o evidence of ischemia Ac exac of COPD due to bilat pneumonia CAD - card cath of 1999: mod CAD - MPI of 2019: small apical infarction or thinning, LVEF 48% PAD - severe PAD on noninvasive w/u of Apr 2019, conservative management per patient desire Chronic, bilat leg edema due to venous insufficiency Mild carotid arterial disease on carotid u/s of October 2018 H/o hypertension and hyperlipidemia Chronic tobacco use (smokes cigs) Mild sinus node dysfunction: NSR with frequent PACs and wandering atrial pacemaker w/o documentation of any A F/Fl Echo on 01/16/21: LVEF 70-75%, grade 1 jeffers dysfunction, mild AI, PASP 35-40 mmHg Plan: * Complex management due to multiple comorbidities * Continue ASA * Advised to refrain from tobacco use * Supplemental oxygen as needed * Monitor labs * Discharge planning in place to facilitate in home care ERWIN CHANG CASING BLOWER Jan 18, 2021 09:58
[2021-01-18] MEDS ORDERED: morphine INJ 4 MG/ML 1 ML (VIAL/SYRINGE) IVP PRN (10:30)
--- NOTE | 2021-01-18 12:02 | Occ Therapy Progress Note ---
Therapy Progress Note Nrsg states that pt is not doing well today. Assisted nrsg with rolling pt in bed. Pt kept eyes closed throughout and only nodded head to answer questions. Will check on pt in am. 1 [id number] EDDIE MORENO Jan 18, 2021 12:02
--- NOTE | 2021-01-18 12:57 | Discharge Summary ---
Diagnosis/Chief Complaint Date of Admission Jan 10, 2021 at 19:28 Date of Discharge Reason Hospital Visit PT PRESENTED TO THE OFFICE WITH MULTIPLE COMPLAINTS, ELEVATED BLOOD GLUCOSE READINGS, NASAL CONGESTION, SHORTNESS OF BREATH, COUGH. HE REPORTS PAIN IN HIS LOWER ABDOMEN WITH CONSTIPATION, AND DIFFICULTY HAVING BOWEL MOVEMENTS. HIS REPORTS THAT SHE IS UNABLE TO GET HIM TO EAT VERY MUCH. HIS ALSO REPORTS MUSCLE WEAKNESS WITH GAIT INSTABILITY THAT IS GETTING WORSE. THE FAMILY REQUESTS SOME SORT OF IMAGING OF HIS CHEST AND ABDOMEN. Discharge Summary Discharge Physical Examination Allergies: Coded Allergies: cefuroxime (Verified Allergy, Mild, GI UPSET, 03/22/20) Vitals & I&Os Vital Signs Date Time Temp Pulse Resp B/P (MAP) Pulse Ox O2 Delivery O2 Flow Rate FiO2 01/18/21 08:00 36.8 108 20 119/76 (90) 92 Nasal Cannula 4.00 01/18/21 08:00 92 Hospital Course Pending Labs Laboratory Tests 01/18/21 05:22: Glucometer 136 Discharge Instructions to patient/family Please see electronic discharge instructions given to patient. Discharge Medications Reviewed and agree with Discharge Medication list on patient's Discharge Instruction sheet LAUREL SERRANO MD Jan 18, 2021 12:57
[2021-01-18] MEDS ORDERED: MORP100S3 PO (13:00)
[2021-01-18] MEDS ORDERED: IPRA3AMP31 INH (13:00)
--- NOTE | 2021-01-18 13:02 | Discharge Inst-Simple/Standard ---
Discharge Inst-Standard Reconcile Patient Problems Problems Reviewed?: Yes Discharge Medications New, Converted or Re-Newed RX: Other Patient Instructions/Follow Up Plan of Care/Instructions/FU: 1-2 WKS WITH ZACH NASCIMENTO Activity as Tolerated: Yes Discharge Diet: No Restrictions Health Concerns: COPD, EMPHYSEMA, PNEUMONIA, WEAKNESS, CAD [facility] to [facility]: CALL HOSPICE PRIOR TO GOING TO HOSPITAL. WE WILL MANAGE SYMPTOMS AT HOME IF POSSIBLE LAUREL SERRANO MD Jan 18, 2021 13:02
[2021-01-18] MEDS ORDERED: LEVO250T46 PO (13:03)
--- NOTE | 2021-01-18 13:09 | Progress Note - Cardiology ---
Cardiology SOAP Progress Note Subjective: Does not answer questions. Difficult to awaken Objective: I&O/Vital Signs 01/18/21 01/18/21 01/18/21 01/18/21 02:16 07:18 07:35 08:00 Pulse 99 Pulse Ox 90 90 O2 Delivery Nasal Cannula Nasal Cannula Nasal Cannula O2 Flow Rate 3.00 3.00 4.00 FiO2 92 01/18/21 08:00 Temp 36.8 Pulse 108 Resp 20 B/P (MAP) 119/76 (90) Pulse Ox 92 O2 Delivery Nasal Cannula O2 Flow Rate 4.00 01/18/21 00:00 Intake Total 1165 ml Output Total 500 ml Balance 665 ml Weight (Pounds): 149 Weight (Ounces): 6.0 Weight (Calculated Kilograms): 67.146868 Constitutional: well-developed, well-nourished, other (difficult to awaken) Respiratory: No accessory muscle use; other (fair air entry, prolonged exp, diminished air entry at the bases) Cardiovascular: irregularly irregular, S1 and S2, systolic murmur (soft LISA at card base) Gastrointestional: No tender; soft; No guarding, No rebound; audible bowel sounds Extremities: other (mild, bilateral leg edema); No clubbing, No cyanosis Neurologic/Psychiatric: other (not able to cooperate with neuro exam) Skin: No rash on exposed areas, No ulcerations on exposed areas Results/Procedures: Labs Laboratory Tests 01/17/21 15:18: Glucometer 219H 01/17/21 20:01: Glucometer 200H 01/18/21 05:22: Glucometer 136H A/P: Assessment: Chest discomfort on the morning of 01/16/20 w/o evidence of ACS, etiology undetermined - troponin negative on 01/15/21 - NSR and PACs seen on ECG of , w/o evidence of ischemia Ac exac of COPD due to bilat pneumonia CAD - card cath of 1999: mod CAD - MPI of 2018: small apical infarction or thinning, LVEF 48% PAD - severe PAD on noninvasive w/u of Apr 2019, conservative management per patient desire Chronic, bilat leg edema due to venous insufficiency Mild carotid arterial disease on carotid u/s of October 2018 H/o hypertension and hyperlipidemia Chronic tobacco use (smokes cigs) Mild sinus node dysfunction: NSR with frequent PACs and wandering atrial pacemaker w/o documentation of any A F/Fl Echo on 01/16/21: LVEF 70-75%, grade 1 jeffers dysfunction, mild AI, PASP 35-40 mmHg Plan: * Complex management due to multiple comorbidities * Continue ASA * Advised to refrain from tobacco use * Supplemental oxygen as needed * Monitor labs * Discharge planning in place to facilitate in home care MARLENY MOORE MD [facility] Jan 18, 2021 13:09
[2021-01-18 16:00] VITALS: BP 119/76
== END 2021-01-18 16:00 | disposition hospice, home (50) | DRG 193 ==
LOC: 4TH 15:35 → OBSVTOIN 19:28 → 4TH 01-14 10:16
PROVIDERS: ADMIT Family Medicine; ATTEND Family Medicine
DX: J18.9 Pneumonia, unspecified organism (principal); J96.20 Acute and chronic respiratory failure, unspecified whether with hypoxia or hypercapnia; J43.9 Emphysema, unspecified; K59.00 Constipation, unspecified; E86.0 Dehydration; R26.89 Other abnormalities of gait and mobility; R53.1 Weakness; K40.20 Bilateral inguinal hernia, without obstruction or gangrene, not specified as recurrent; Z66 Do not resuscitate; K57.90 Diverticulosis of intestine, part unspecified, without perforation or abscess without bleeding; I25.10 Atherosclerotic heart disease of native coronary artery without angina pectoris; I10 Essential (primary) hypertension; F17.210 Nicotine dependence, cigarettes, uncomplicated; E78.00 Pure hypercholesterolemia, unspecified; E78.5 Hyperlipidemia, unspecified; E11.40 Type 2 diabetes mellitus with diabetic neuropathy, unspecified; E11.65 Type 2 diabetes mellitus with hyperglycemia; K21.9 Gastro-esophageal reflux disease without esophagitis; M19.91 Primary osteoarthritis, unspecified site; I73.9 Peripheral vascular disease, unspecified; I87.2 Venous insufficiency (chronic) (peripheral); F41.9 Anxiety disorder, unspecified; I49.1 Atrial premature depolarization; H40.9 Unspecified glaucoma; I25.2 Old myocardial infarction; Z79.4 Long term (current) use of insulin; Z95.5 Presence of coronary angioplasty implant and graft; Z79.82 Long term (current) use of aspirin; Z88.1 Allergy status to other antibiotic agents; Z82.49 Family history of ischemic heart disease and other diseases of the circulatory system
CPT/HCPCS: 36415; 71045; 71046; 74174; 80053; 81000; 82553; 82728; 82947; 83540; 83550; 83880; 84484; 85027; 93005; 93306; 94640; 94664; 94760